=== PATIENT | male | born 1965 | race Two or more races ===

== ENCOUNTER 2023-01-05 11:31 | Outpatient (OUT) | payer BC, SELFPAY ==
--- NOTE | 2022-11-24 15:31 | CA_ITS ---
[facility] Test Date: 2023-01-14 Pat Name: Noé Alberts Department: Room: - Gender: Male Manager Library: : 1965 Requested By: PAUL LOPEZ Order Number: [id number] Reading MD: KEHINDE PARK Interpretive Statements Predominant rhythm is sinus with average rate of 67 bpm Tachycardia - max rate of 167 bpm - 2 episodes of PSVT w/ longest duration of 8 beats - longest episode of 13min 17sec w/ rate of 115-137 bpm Bradycardia - min rate of 41 bpm - longest episode of 35min 9sec w/ rate of 46-53 bpm Ventricular ectopy - none Patient triggered events: 1 - associated with normal sinus rhythm w/o symptoms Impression: Predominant rhythm is sinus with average rate of 67 bpm FAstest rate of 167 bpm and slowest rate of 41 bpm No ventricular ectopy No pauses or blocks Electronically Signed On 01-18-2023 7:23:29 EDT by KEHINDE PARK
== END 2023-01-05 11:32 | disposition home or self-care (01) ==
LOC: CARD 11:31
PROVIDERS: PCP Family Medicine; Visit Provider Family Medicine
DX: R00.1 Bradycardia, unspecified (principal)
CPT/HCPCS: 93246

== ENCOUNTER 2023-05-16 13:17 | Outpatient (OUT) | payer BC, SELFPAY ==
[2023-05-16 13:47] LABS: Basophils Percent Auto 0.6 % (0.2-2.0); Eosinophils Percent Auto 0.4 % (0.9-7.0); Hematocrit 48.1 % (42.0-54.0); Hemoglobin 14.8 g/dL (14.0-18.0); Immature Granulocytes Abs Auto 0.01 10^3/uL (0.00-0.03); Immature Granulocytes Pct Auto 0.2 % (0.0-0.5); Lymphocytes Absolute Auto 1.4 10^3/uL (1.2-3.8); Lymphocytes Percent Auto 26.1 % (20.5-60.0); Mean Corpuscular HGB Conc 30.8 g/dL (29.9-35.2); Mean Corpuscular Hemoglobin 23.8 pg (25.9-34.0); Mean Corpuscular Volume 77.3 fL (80.0-94.0); Mean Platelet Volume 9.6 fL (9.5-13.5); Monocytes Absolute Auto 0.3 10^3/uL (0.3-0.8); Monocytes Percent Auto 5.9 % (1.7-12.0); Neutrophils Absolute Auto 3.6 10^3/uL (1.4-6.5); Neutrophils Percent Auto 66.8 % (43.0-75.0); Platelet Count 197 10^3/uL (150-450); Red Blood Count 6.22 10^6/uL (4.70-6.10); Red Cell Distribution Width 14.6 % (11.0-15.0); White Blood Count 5.4 10^3/uL (4.0-11.0)
[2023-05-16 14:28] LABS: Estimated Average Glucose 114 mg/dL; Glycohemoglobin A1C 5.6 % (4.5-6.2)
[2023-05-16 14:32] LABS: Alanine Aminotransferase 31 U/L (16-63); Albumin Globulin Ratio 0.9; Albumin Level 3.8 g/dL (3.4-5.0); Alkaline Phosphatase 86 U/L (46-116); Anion Gap 9.8; Aspartate Amino Transferase 11 U/L (15-37); BUN Creatinine Ratio 15.2; Bilirubin Total 0.5 mg/dL (0.2-1.0); Calcium 8.8 mg/dL (8.5-10.1); Carbon Dioxide 31.3 mmol/L (21.0-32.0); Chloride 102 mmol/L (98-107); Chol HDL Ratio 4.4; Cholesterol 264 mg/dL (<=200); Estimated GFR (African America >60 (>=60); Estimated GFR (Non-African Ame >60 (>=60); Glucose 105 mg/dL (74-106); HDL Cholesterol 60 mg/dL (40-60); Potassium 4.1 mmol/L (3.5-5.1); Sodium 139 mmol/L (136-145); Thyroid Stimulating Hormone 1.441 uIU/mL (0.358-3.740); Total Protein 7.8 g/dL (6.4-8.2); Triglycerides 89 mg/dL (<=150); VLDL CHOLESTEROL 17.8 mg/dL
== END 2023-05-16 13:18 | disposition home or self-care (01) ==
LOC: LAB 13:18
PROVIDERS: PCP Family Medicine; Visit Provider Family Medicine
DX: E78.00 Pure hypercholesterolemia, unspecified (principal); R73.03 Prediabetes; Z79.899 Other long term (current) drug therapy; R53.83 Other fatigue
CPT/HCPCS: 36415; 80053; 80061; 83036; 84439; 84443; 85025

== ENCOUNTER 2023-12-16 09:34 | Outpatient (OUT) | payer BC, SELFPAY ==
[2023-12-16 10:39] LABS: Basophils Percent Auto 0.6 % (0.2-2.0); Eosinophils Percent Auto 0.6 % (0.9-7.0); Hemoglobin 13.6 g/dL (14.0-18.0); Immature Granulocytes Abs Auto 0.01 10^3/uL (0.00-0.03); Immature Granulocytes Pct Auto 0.2 % (0.0-0.5); Lymphocytes Absolute Auto 1.4 10^3/uL (1.2-3.8); Lymphocytes Percent Auto 27.1 % (20.5-60.0); Mean Corpuscular HGB Conc 30.9 g/dL (29.9-35.2); Mean Corpuscular Hemoglobin 23.6 pg (25.9-34.0); Mean Corpuscular Volume 76.3 fL (80.0-94.0); Mean Platelet Volume 10.5 fL (9.5-13.5); Monocytes Absolute Auto 0.3 10^3/uL (0.3-0.8); Neutrophils Absolute Auto 3.5 10^3/uL (1.4-6.5); Neutrophils Percent Auto 65.5 % (43.0-75.0); Platelet Count 168 10^3/uL (150-450); Red Blood Count 5.77 10^6/uL (4.70-6.10); Red Cell Distribution Width 14.5 % (11.0-15.0); White Blood Count 5.3 10^3/uL (4.0-11.0)
[2023-12-16 11:20] LABS: Estimated Average Glucose 103 mg/dL; Glycohemoglobin A1C 5.2 % (4.5-6.2)
[2023-12-16 11:41] LABS: Prostate Specific Antigen Dx 8.49 ng/mL (<=4.00)
[2023-12-16 11:57] LABS: Alanine Aminotransferase 23 U/L (16-63); Albumin Globulin Ratio 0.9; Albumin Level 3.6 g/dL (3.4-5.0); Alkaline Phosphatase 82 U/L (46-116); Anion Gap 14.5; Aspartate Amino Transferase 11 U/L (15-37); BUN Creatinine Ratio 16.5; Bilirubin Total 0.8 mg/dL (0.2-1.0); Calcium 8.6 mg/dL (8.5-10.1); Carbon Dioxide 24.4 mmol/L (21.0-32.0); Chloride 106 mmol/L (98-107); Chol HDL Ratio 3.3; Cholesterol 173 mg/dL (<=200); Estimated GFR (African America >60 (>=60); Estimated GFR (Non-African Ame >60 (>=60); Free T3 2.58 pg/mL (2.18-3.98); Globulin 3.8 g/dL; Glucose 108 mg/dL (74-106); HDL Cholesterol 53 mg/dL (40-60); LDL Cholesterol Calculated 107.2 mg/dL; Potassium 3.9 mmol/L (3.5-5.1); Sodium 141 mmol/L (136-145); Thyroid Stimulating Hormone 1.464 uIU/mL (0.358-3.740); Total Protein 7.4 g/dL (6.4-8.2); Triglycerides 64 mg/dL (<=150); Uric Acid 3.8 mg/dL (3.5-7.2); VLDL CHOLESTEROL 12.8 mg/dL
[2023-12-17 05:07] LABS: Insulin 11.4 uIU/mL (2.6-24.9)
[2023-12-20 08:10] LABS: PSA, Free 0.37 ng/mL; Prostate Specific Ag 7.5 ng/mL (0.0-4.0)
== END 2023-12-16 09:35 | disposition home or self-care (01) ==
LOC: LAB 09:36
PROVIDERS: PCP Family Medicine; Visit Provider Family Medicine
DX: G30.0 Alzheimer's disease with early onset (principal); J45.909 Unspecified asthma, uncomplicated; R73.03 Prediabetes; R73.09 Other abnormal glucose; Z12.5 Encounter for screening for malignant neoplasm of prostate; R97.20 Elevated prostate specific antigen [PSA]
CPT/HCPCS: 36415; 80053; 80061; 83036; 83525; 84153; 84154; 84436; 84443; 84481; 84550; 85025

== ENCOUNTER 2024-01-05 08:07 | Outpatient (OUT) | payer BC, SELFPAY ==
--- NOTE | 2024-01-05 08:13 | CT_ITS ---
[address] [address] Patient Name: ESTELLA JEFFERY MRN: [id number] date: 1965 Sex: M Assigned Patient Location: CT Current Patient Location: CT Accession/Order Number: [id number] Exam Date: 01/05/2024 09:22 Report Date: 01/05/2024 11:28 At the request of: PAUL LOPEZ Procedure: CT abdomen pelvis w con EXAMINATION: CT abdomen pelvis w con HISTORY: Elevated PSA COMPARISON: CT abdomen pelvis 09/19/2020 TECHNIQUE: Axial, Coronal, and Sagittal images were obtained without and/or with IV contrast as indicated by examination type. Dose reduction techniques were achieved by using automated exposure control and/or adjustment of mA and/or kV according to patient size and/or use of iterative reconstruction technique. FINDINGS: LUNG BASES: No visible pulmonary or pleural disease. LIVER: No enlargement, atrophy, suspicious density, or significant focal lesion. BILIARY: No dilatation or calcification. PANCREAS: No lesion, fluid collection, or abnormal duct dilatation. SPLEEN: No enlargement or focal lesion. ADRENALS: No mass or enlargement. KIDNEYS: No mass, obstruction, or calcification. BOWEL/MESENTERY: Prior sigmoid resection and anastomosis. No visible mass, obstruction, or bowel wall thickening. AORTA/VASCULAR: No aneurysm or dissection. RETROPERITONEUM: No mass or adenopathy. LYMPH NODES: No adenopathy. URINARY BLADDER: No visible focal wall thickening, lesion, or calculus. PELVIC ORGANS: Slight heterogeneous prostate containing several coarse calcifications. No significant enlargement, 4.5 x 3.0 x 3.3 cm. ABDOMINAL WALL: Prior supraumbilical ventral hernia repair with mesh; no current hernia. BONES: Tiny dense calcification within left femoral head and left superior pubic ramus favoring bone islands rather than metastatic disease. OTHER: Negative. CT/CT abdomen pelvis w con IMPRESSION: 1. Slightly heterogeneous prostate without significant enlargement. 2. No convincing metastatic disease. Electronically authenticated by: LUCIE TOWNSEND Date: 01/05/2024 11:28
--- OUTSIDE RECORDS SUMMARY | 2024-01-05 08:14 | XMS_ITS | CCD ---
Author Organization [facility] Care Team Providers Care Manager Cath Lab Name Role Phone NAYA IZAGUIRRE Admitting Unavailable HOY PAUL Primary Care Unavailable CHRISTIANOY PAUL Referring Unavailable ZINA JIASULTANAIN Attending Unavailable NC Procedure Practitioner Unavailab WILLAM WolfIN Surgeon Unavailable CHRISTIANOYKATIAPAUL Primary Care Unavailable SELF, REFERRED Referring Unavailable WILLAM IZAGUIRREIN Attending Unavailable IZAGUIRRE, JIANLIN Admitting Unavailable NC Procedure Practitioner Unavailab ludy IZAGUIRRE, JIASULTANAIN Surgeon Unavailable Unavailable Primary Care Provider UnavailNARCISO Olsen Referring Unavailable Unavailable Primary Care Provider Unavailvirginia LOPEZ ., DR MILLER Attending Unavailable HOY ., DR MILLER Admitting Unavailable HOY ., DR MILLER Primary Care Unavailable HOY ., DR MILLER Consulting Unavailable ZIEBER, DR LUCIE Kramer Consulting Unavailable HOY ., DR MILLER Consulting Unavailable HOY ., DR MILLER Attending Unavailable HOY ., DR MILLER Admitting Unavailable HOY ., DR MILLER Primary Care Unavailable HOY ., DR MILLER Attending Unavailable HOY ., DR MILLER Admitting Unavailable HOY ., DR MILLER Primary Care Unavailable HOY ., DR MILLER Consulting Unavailable MIGUELITO CHICAS Attending Unavailable TEMO, LORRI Referring Unavailable TEMO, LORRI Referring Unavailable TEMO, LORRI Attending Unavailable TEMO, LORRI Attending Unavailable SANDIE WEINSTEIN Referring Unavailable SANDIE WEINSTEIN Attending Unavailable TEMOHOLLY BEASLEYIA Attending Unavailable Unavailable Primary Care Provider UnavailDanni Victoria Attending Unavailable Paul Lopez Referring Unavailable Allergies Allergy Classification Reported Allergen(s) Allergy Type Date of Onset Reaction(s) Facility (1 source) 10007,00 Drug allergy (disorder) 05-09-2009 [facility] Repository Medications Current Medications Medication Drug Class(es) Dates Sig (Normalized) Sig (Original) aspirin 81 mg delayed release oral tablet (20 sources) Platelet Aggregation Inhibitor, Nonsteroidal Anti-inflammatory Drug Start: 11-26-2019 aspirin, enteric coated (ASPIRIN, ENTERIC COATED) 81 mg EC tablet once daily. 0 11/26/2019 Active Comment on above: once daily. CPAP/BIPAP/OTHER (20 sources) Start: 12-02-2022 End: 04-18-2050 CPAP/BIPAP/OTHER Type .CPAPSettings into a note to see current settings/supplies /DME information. 1 Each 0 12/02/2022 04/18/2050 Active Start: 04-30-2022 End: 09-14-2049 CPAP/BIPAP/OTHER Indications : SHELBY (obstructive sleep apnea) Type .CPAPSettings into a note to see current settings/supplies/DME information. 1 Each 0 04/30/2022 09/14/2049 Active Comment on above: Type .CPAPSettings i nto a note to see current settings/supplies/DME information. donepezil hydrochloride 5 mg oral tablet (17 sources) Start: End: take 1 tablet by mouth once daily donepezil (ARICEPT) 5 mg tablet Indications: Alzheimer's disease (HCC) Take 1 tablet by mouth once daily. 90 tablet 0 12/06/2023 Active Comment on above: Take 1 tablet by january th once daily. TAKE 1 TABLET BY JANUARY TH EVERY DAY hydrocortisone 10 mg/ml / neomycin 3.5 mg/ml / polymyxin b 93470 unt/ml otic suspension (3 sources) Aminoglycoside Antibacterial, Polymyxin-class Antibacterial, Corticosteroid Start: End: neomycin-polymyxi n-hydrocortisone (CORTISPORIN) 3.5-10,000-1 mg/mL-unit/mL-% otic suspension Indications: Acute otitis externa of left ear, unspecified type Use 4 Drops in the left ear three times daily for 5 days. 10 mL 0 04/22/2022 04/27/2022 Active Comment on above: Use 4 Drops in the l eft ear three times daily for 5 days. memantine hydrochloride 5 mg oral tablet (12 sources) P-ttbyux-J-aspartate Receptor Antagonist Start: take 1 tablet by mouth twice daily memantine (NAMENDA) 5 mg tablet Indications: Alzheimer's disease (HCC) Take 1 tablet by mouth twice daily. 180 tablet 1 11/18/2022 Active Comment on above: Take 1 tablet by january th twice daily. omeprazole 20 mg delayed release oral capsule (20 sources) Proton Pump Inhibitor omeprazole (PRILOSEC) 20 mg capsule 40 mg once daily. 0 Active Comment on above: 40 mg once daily. oxaprozin 600 mg oral tablet (20 sources) Nonsteroidal Anti-inflammatory Drug Start: oxaprozin (DAYPRO) 600 mg tablet as needed. 0 04/14/2022 Active Comment on above: as needed. simvastatin 20 mg oral tablet (20 sources) HMG-CoA Reductase Inhibitor Start: simvastatin (ZOCOR) 20 mg tablet daily at bedtime. 0 02/25/2022 Active Comment on above: daily at bedtime. Problems Active Problems Problem Classification Problem Date Documented Date Episodic/Chronic Delirium, dementia, and amnestic and other cognitive disorders (3 sources) Alzheimer's disease; Translations: [Alzheimer's disease, unspecified] Chronic Disorders of lipid metabolism (13 sources) Hyperlipidemia; Translations: [Hyperlipidemia, unspecified] 12-02-2022 Chronic Nutritional deficiencies (1 source) Vitamin D deficiency, unspecified; Translations: [VITAMIN D DEFICIENCY UNSPECIFIED] Onset: 01-16-2022 Chronic Osteoarthritis (4 sources) Unspecified osteoarthritis, unspecified site; Translations: [UNSPECIFIED OSTEOARTHRITIS UNS SITE] Onset: 10-21-2022 Chronic Other circulatory disease (1 source) Elevated blood-pressure reading without diagnosis of hypertension; Translations: [Elevated blood-pressure reading, without diagnosis of hypertension] Episodic Other ear and sense organ disorders (20 sources) 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; Translations: [Sensorineural hearing loss, bilateral] Onset: 04-27-2022 04-27-2022 Chronic Other ear and sense organ disorders (2 sources) Impacted cerumen of bilateral ears; Translations: [Impacted cerumen, bilateral] Episodic Other ear and sense organ disorders (1 source) Acute otitis externa of left ear; Translations: [Unspecified acute noninfective otitis externa, left ear] Episodic Other nervous system disorders (2 sources) Other symptoms and signs involving cognitive functions and awareness; Translations: [Other signs and symptoms involving cognition] Onset: 05-07-2022 05-07-2022 Episodic Residual codes; unclassified (1 source) Sleep apnea; Translations: [Sleep apnea, unspecified] Chronic Residual codes; unclassified (1 source) Slow respiration; Translations: [Sleep apnea, unspecified] Chronic Residual codes; unclassified (2 sources) Obstructive sleep apnea syndrome; Translations: [Obstructive sleep apnea (adult) (pediatric)] Chronic Residual codes; unclassified (1 source) Primary central sleep apnea; Translations: [Primary central sleep apnea] Chronic Residual codes; unclassified (1 source) Obstructive sleep apnea (adult) (pediatric); Translations: [Obstructive sleep apnea] Onset: 12-20-2022 Chronic Residual codes; unclassified (3 sources) Amnesia; Translations: [Other amnesia] Episodic Past or Other Problems Problem Classification Problem Date Documented Da te Episodic/Chronic Deficiency and other anemia (1 source) Anemia, unspecified; Translations: [ANEMIA UNSPECIFIED] Onset: 01-16-2022 Episodic Diabetes mellitus without complication (1 source) Other abnormal glucose; Translations: [OTHER ABNORMAL GLUCOSE] Onset: 01-16-2022 Episodic Other ear and sense organ disorders (20 sources) Bilateral tinnitus; Translations: [Tinnitus, bilateral] Onset: 04-27-2022 04-27-2022 Episodic Residual codes; unclassified (5 sources) Other amnesia; Translations: [OTHER AMNESIA] Onset: 01-21-2022 Episodic Results Test Name Value Interpretation Reference Range [facility] eularinku Marjorie 03-07-2023 [facility] Telephone ([facility]) NOÉ JEFFERY ([id number]) 1965 M Date Time Provider Department 03/07/23 CHASIDY STOVALL [facility] During your visit today, we recorded the following information about you: Chasidy Stovall, Research Coordinator 03/07/2023 1:44 PM Signed A voicemail was left about participation in [facility] research study. Chasidy Stovall, Research Coordinator 03/14/2023 1:46 PM Addendum Another voicemail was left in regards to potential participation. Allergies As of Date: 03/07/2023 (No Known Allergies) Date Reviewed: 10/12/2022 Reviewed by: Miguelito Chicas APRN.FIRE MANAGEMENT SPECIALIST - Fully Assessed Reason for Visit: Research [293] Cmt: [facility] (IRB [id number]) Primary Visit Diagnosis:Research study patient [Z00.6] Prescriptions as of 03/14/2023 - donepezil (ARICEPT) 5 mg tablet TAKE 1 TABLET BY MOUTH EVERY DAY - CPAP/BIPAP/OTHER Type .CPAPSettings into a note to see current settings/supplies/DM E information. - memantine (NAMENDA) 5 mg tablet Take 1 tablet by mouth twice daily. - CPAP/BIPAP/OTHER Type .CPAPSettings into a note to see current settings/supplies/DM E information. - aspirin, enteric coated (ASPIRIN, ENTERIC COATED) 81 mg EC tablet once daily. - omeprazole (PRILOSEC) 20 mg capsule 40 mg once daily. - oxaprozin (DAYPRO) 600 mg tablet as needed. - simvastatin (ZOCOR) 20 mg tablet daily at bedtime. Problem List As Of Date 03/07/2023 Noted Resolved Bilateral high frequency sensorineural hearing *04/27/2022 Tinnitus, bilateral [H93.13] 04/27/2022 HLD (hyperlipidemia) [E78.5] Encounter Status:Closed by CHASIDY STOVALL on 03/07/23 [facility] 02-08-2023 [facility] Telephone ([facility]) NOÉ JEFFERY ([id number]) 1965 M Date Time Provider Department 02/08/23 CHASIDY STOVALL [facility] During your visit today, we recorded the following information about you: Chasidy Stovall, Research Coordinator 02/08/2023 1:26 PM Signed A call was made to of patient to talk about interest in participating in [facility]. expressed interest in participating. The [facility] consent document was sent through email. A call will be made in a week to discuss enrollment. Allergies As of Date: 02/08/2023 (No Known Allergies) Date Reviewed: 10/12/2022 Reviewed by: Miguelito Chicas APRN.FIRE MANAGEMENT SPECIALIST - Fully Assessed Reason for Visit: Research [293] Cmt: [facility] (IRB [id number]) Interest Primary Visit Diagnosis:Research study patient [Z00.6] Prescriptions as of 02/08/2023 - donepezil (ARICEPT) 5 mg tablet TAKE 1 TABLET BY MOUTH EVERY DAY - CPAP/BIPAP/OTHER Type .CPAPSettings into a note to see current settings/supplies/DM E information. - memantine (NAMENDA) 5 mg tablet Take 1 tablet by mouth twice daily. - CPAP/BIPAP/OTHER Type .CPAPSettings into a note to see current settings/supplies/DM E information. - aspirin, enteric coated (ASPIRIN, ENTERIC COATED) 81 mg EC tablet once daily. - omeprazole (PRILOSEC) 20 mg capsule 40 mg once daily. - oxaprozin (DAYPRO) 600 mg tablet as needed. - simvastatin (ZOCOR) 20 mg tablet daily at bedtime. Problem List As Of Date 02/08/2023 Noted Resolved Bilateral high frequency sensorineural hearing *04/27/2022 Tinnitus, bilateral [H93.13] 04/27/2022 HLD (hyperlipidemia) [E78.5] Encounter Status:Closed by CHASIDY STOVALL on 02/08/23 [facility] 02-04-2023 [facility] Telephone ([facility]) NOÉ JEFFERY ([id number]) 1965 M Date Time Provider Department 02/04/23 CORINNASANDIE During your visit today, we recorded the following information about you: Domingo Fried 02/04/2023 8:38 AM Signed Allergies As of Date: 02/04/2023 (No Known Allergies) Date Reviewed: 10/12/2022 Reviewed by: Miguelito Chicas APRN.FIRE MANAGEMENT SPECIALIST - Fully Assessed Reason for Visit: PAP Therapy Follow Up [1285] Cmt: 12/18/22 - 01/16/23 LAST FOUND DL FROM DME Prescriptions as of 02/04/2023 - donepezil (ARICEPT) 5 mg tablet TAKE 1 TABLET BY MOUTH EVERY DAY - CPAP/BIPAP/OTHER Type .CPAPSettings into a note to see current settings/supplies/DM E information. - memantine (NAMENDA) 5 mg tablet Take 1 tablet by mouth twice daily. - CPAP/BIPAP/OTHER Type .CPAPSettings into a note to see current settings/supplies/DM E information. - aspirin, enteric coated (ASPIRIN, ENTERIC COATED) 81 mg EC tablet once daily. - omeprazole (PRILOSEC) 20 mg capsule 40 mg once daily. - oxaprozin (DAYPRO) 600 mg tablet as needed. - simvastatin (ZOCOR) 20 mg tablet daily at bedtime. Problem List As Of Date 02/04/2023 Noted Resolved Bilateral high frequency sensorineural hearing *04/27/2022 Tinnitus, bilateral [H93.13] 04/27/2022 HLD (hyperlipidemia) [E78.5] Encounter Status:Closed by DOMINGO FRIED on 02/04/23 [facility] 01-13-2023 [facility] Telephone ([facility]) NOÉ JEFFERY ([id number]) 1965 M Date Time Provider Department 01/13/23 MIQUEL DIAMOND During your visit today, we recorded the following information about you: Sandie Weinstein APRN.EFRAIN 01/13/2023 12:00 PM Signed I left a message explaining the 4% requirement from Medicare, and advised to contact Medicare if they have insurance questions. Advised to call me back if they had other concerns or questions. Sandie Weinstein APRN.EFRAIN Marcelo Gonzalesian 01/13/2023 1:14 PM Signed Patient returned call, requested a call back. Miquel Diamond RN 01/14/2023 9:15 AM Signed Called and left VM. Call back info provided and call back requested. Allergies As of Date: 01/13/2023 (No Known Allergies) Date Reviewed: 10/12/2022 Reviewed by: Miguelito Chicas APRN.EFRAIN - Fully Assessed Reason for Visit: Returning Patient's Call [408] Prescriptions as of 01/14/2023 - CPAP/BIPAP/OTHER Type .CPAPSettings into a note to see current settings/supplies/DM E information. - memantine (NAMENDA) 5 mg tablet Take 1 tablet by mouth twice daily. - donepezil (ARICEPT) 5 mg tablet Take 1 tablet by mouth once daily. - CPAP/BIPAP/OTHER Type .CPAPSettings into a note to see current settings/supplies/DM E information. - aspirin, enteric coated (ASPIRIN, ENTERIC COATED) 81 mg EC tablet once daily. - omeprazole (PRILOSEC) 20 mg capsule 40 mg once daily. - oxaprozin (DAYPRO) 600 mg tablet as needed. - simvastatin (ZOCOR) 20 mg tablet daily at bedtime. Problem List As Of Date 01/13/2023 Noted Resolved Bilateral high frequency sensorineural hearing *04/27/2022 Tinnitus, bilateral [H93.13] 04/27/2022 HLD (hyperlipidemia) [E78.5] Encounter Status:Closed by MIQUEL DIAMOND on 01/13/23 [facility] Marjorie 12-03-2022 [facility] Telephone ([facility]) NOÉ JEFFERY ([id number]) 1965 M Date Time Provider Department 12/03/22 SANDIE WEINSTEIN During your visit today, we recorded the following information about you: Domingo Fried 12/03/2022 11:39 AM Signed Faxed order, office notes, demographics, and sleep study to: DME name: [facility] DME fax: [phone] DME ph: Allergies As of Date: 12/03/2022 (No Known Allergies) Date Reviewed: 10/12/2022 Reviewed by: Miguelito Chicas APRN.FIRE MANAGEMENT SPECIALIST - Fully Assessed Reason for Visit: PAP Rx Faxed [[id number]] Cmt: DME: [facility] Prescriptions as of 12/03/2022 - CPAP/BIPAP/OTHER Type .CPAPSettings into a note to see current settings/supplies/DM E information. - memantine (NAMENDA) 5 mg tablet Take 1 tablet by mouth twice daily. - donepezil (ARICEPT) 5 mg tablet Take 1 tablet by mouth once daily. - CPAP/BIPAP/OTHER Type .CPAPSettings into a note to see current settings/supplies/DM E information. - aspirin, enteric coated (ASPIRIN, ENTERIC COATED) 81 mg EC tablet once daily. - omeprazole (PRILOSEC) 20 mg capsule 40 mg once daily. - oxaprozin (DAYPRO) 600 mg tablet as needed. - simvastatin (ZOCOR) 20 mg tablet daily at bedtime. Problem List As Of Date 12/03/2022 Noted Resolved Bilateral high frequency sensorineural hearing *04/27/2022 Tinnitus, bilateral [H93.13] 04/27/2022 HLD (hyperlipidemia) [E78.5] Encounter Status:Closed by DOMINGO FRIED on 12/03/22 [facility] Marjorie 11-08-2022 [facility] Telephone [facility] NOÉ JEFFERY ([id number]) 1965 M Date Time Provider Department 11/08/22 SANDIE WEINSTEIN During your visit today, we recorded the following information about you: Petrona Guzman LPN 11/08/2022 11:52 AM Signed Message was sent to [facility] requesting a 30 day compliance rpt to be sent to our [place] office for Pt's upcoming appt. Will await for rpts to be sent. Petrona Guzman LPN 11/09/2022 8:40 AM Signed Rpt was received and was scanned in Pts chart. Allergies As of Date: 11/08/2022 (No Known Allergies) Date Reviewed: 10/12/2022 Reviewed by: Miguelito Chicas APRN.FIRE MANAGEMENT SPECIALIST - Fully Assessed Reason for Visit: Download Request [Other] Prescriptions as of 11/09/2022 - donepezil (ARICEPT) 5 mg tablet Take 1 tablet by mouth once daily. - CPAP/BIPAP/OTHER Type .CPAPSettings into a note to see current settings/supplies/DM E information. - aspirin, enteric coated (ASPIRIN, ENTERIC COATED) 81 mg EC tablet once daily. - omeprazole (PRILOSEC) 20 mg capsule 40 mg once daily. - oxaprozin (DAYPRO) 600 mg tablet as needed. - simvastatin (ZOCOR) 20 mg tablet daily at bedtime. Problem List As Of Date 11/08/2022 Noted Resolved Bilateral high frequency sensorineural hearing *04/27/2022 Tinnitus, bilateral [H93.13] 04/27/2022 Encounter Status:Closed by PETRONA GUZMAN on 11/08/22 [facility] R[facility]O by IFAon 10-25-2022 Antinuclear Antibodies, IFA Negative Normal [facility] Comment on above: Result Comment: Nega tive <1:80 Borderline 1:80 Positive >1:80 ICAP nomenclature: AC-0 For more information about Hep-2 cell patterns use ANApatterns.org, the official website for the International Consensus on Antinuclear Antibody (RITO) Patterns (ICAP). Performed By: #### T 7, TSH, CMP, AKSHAT, LIPA, LIPID #### [facility] [address] [place] [address] Dr. Janell Marquez ANTISTREPTOLYSIN O AB (ASO)o n 10-22-2022 Antistreptolysin O Ab 45.9 IU/mL Normal 0.0-200.0 [facility] Comment on above: Performed By: #### A SOAB #### [facility] [address] [place] [address] Dr. Janell Marquez RHEUMATOID FACTORon 10-23-19 RA Latex Turbid. <10.0 Normal <14.0 [facility] Comment on above: Performed By: #### R F #### [facility] [address] [place] [address] Dr. Janell Marquez CBC AUTO DIFFon 10-21-2022 BASO # 0.0 103/ul Normal 0.0-0.1 [facility] Comment on above: Performed By: #### T 7, TSH, CMP, AKSHAT, LIPA, LIPID #### [facility] [address] [place] [address] Dr. Janell Marquez Basophils/100 WBC (Bld) 0.4 % Normal 0.2-2.0 [facility] Comment on above: Performed By: #### T 7, TSH, CMP, AKSHAT, LIPA, LIPID #### [facility] [address] [place] [address] Dr. Janell Marquez EO # 0.0 103/ul Normal 0.0-0.7 [facility] Comment on above: Performed By: #### T 7, TSH, CMP, AKSHAT, LIPA, LIPID #### [facility] [address] [place] [address] Dr. Janell Marquez Eosinophils/100 WBC (Bld) 0.7 % Critically low 0.9-7.0 [facility] Comment on above: Performed By: #### T 7, TSH, CMP, AKSHAT, LIPA, LIPID #### [facility] [address] [place] [address] Dr. Janell Marquez Erythrocyte distribution width (RBC) [Ratio] 16.1 % Critically high 11.0-15.0 [facility] Comment on above: Performed By: #### T 7, TSH, CMP, AKSHAT, LIPA, LIPID #### [facility] [address] [place] [address] Dr. Janell Marquez Hematocrit (Bld) [Volume fraction] 48.8 % Normal 42.0-54.0 [facility] Comment on above: Performed By: #### T 7, TSH, CMP, AKSHAT, LIPA, LIPID #### [facility] [address] [place] [address] Dr. Janell Marquez Hemoglobin (Bld) [Mass/Vol] 15.3 g/dL Normal 14.0-18.0 [facility] Comment on above: Performed By: #### T 7, TSH, CMP, AKSHAT, LIPA, LIPID #### [facility] [address] [place] [address] Dr. Janell Marquez IG # 0.02 10e3/ul Normal 0.00-0.03 [facility] Comment on above: Performed By: #### T 7, TSH, CMP, AKSHAT, LIPA, LIPID #### [facility] [address] [place] [address] Dr. Janell Marquez IG % 0.4 % Normal 0.0-0.5 [facility] Comment on above: Performed By: #### T 7, TSH, CMP, AKSHAT, LIPA, LIPID #### [facility] [address] [place] [address] Dr. Janell Marquez LYMPH # 1.3 103/ul Normal 1.2-3.8 [facility] Comment on above: Performed By: #### T 7, TSH, CMP, AKSHAT, LIPA, LIPID #### [facility] [address] [place] [address] Dr. Janell Marquez Lymphocytes/100 WBC (Bld) 29.0 % Normal 20.5-60.0 [facility] Comment on above: Performed By: #### T 7, TSH, CMP, AKSHAT, LIPA, LIPID #### [facility] [address] [place] [address] Dr. Janell Marquez MANUAL DIFF REQ NO Normal [facility] Comment on above: Performed By: #### T 7, TSH, CMP, AKSHAT, LIPA, LIPID #### [facility] [address] [place] [address] Dr. Janell Marquez MCH (RBC) [Entitic mass] 23.5 pg Critically low 25.9-34.0 [facility] Comment on above: Performed By: #### T 7, TSH, CMP, AKSHAT, LIPA, LIPID #### [facility] [address] [place] [address] Dr. Janell Marquez MCHC (RBC) [Mass/Vol] 31.4 g/dL Normal 29.9-35.2 [facility] Comment on above: Performed By: #### T 7, TSH, CMP, AKSHAT, LIPA, LIPID #### [facility] [address] [place] [address] Dr. Janell Marquez MCV (RBC) [Entitic vol] 74.8 fL Critically low 80.0-94.0 [facility] Comment on above: Performed By: #### T 7, TSH, CMP, AKSHAT, LIPA, LIPID #### [facility] [address] [place] [address] Dr. Janell Marquez MONO # 0.3 103/ul Normal 0.3-0.8 [facility] Comment on above: Performed By: #### T 7, TSH, CMP, AKSHAT, LIPA, LIPID #### [facility] [address] [place] [address] Dr. Janell Marquez Monocytes/100 WBC (Bld) 7.4 % Normal 1.7-12.0 [facility] Comment on above: Performed By: #### T 7, TSH, CMP, AKSHAT, LIPA, LIPID #### [facility] [address] [place] [address] Dr. Janell Marquez NEUT # 2.9 103/ul Normal 1.4-6.5 [facility] Comment on above: Performed By: #### T 7, TSH, CMP, AKSHAT, LIPA, LIPID #### [facility] [address] [place] [address] Dr. Janell Marquez Neutrophils/100 WBC (Bld) 62.1 % Normal 43.0-75.0 [facility] Comment on above: Performed By: #### T 7, TSH, CMP, AKSHAT, LIPA, LIPID #### [facility] [address] [place] [address] Dr. Janell Marquez Platelet mean volume (Bld) [Entitic vol] 9.3 fL Critically low 9.5-13.5 [facility] Comment on above: Performed By: #### T 7, TSH, CMP, AKSHAT, LIPA, LIPID #### [facility] [address] [place] [address] Dr. Janell Marquez PLT 203 103/ul Normal 150-450 [facility] Comment on above: Performed By: #### T 7, TSH, CMP, AKSHAT, LIPA, LIPID #### [facility] [address] [place] [address] Dr. Janell Marquez RBC 6.52 106/ul Critically high 4.70-6.10 [facility] Comment on above: Performed By: #### T 7, TSH, CMP, AKSHAT, LIPA, LIPID #### [facility] [address] [place] [address] Dr. Janell Marquez WBC 4.6 103/ul Normal 4.0-11.0 [facility] Comment on above: Performed By: #### T 7, TSH, CMP, AKSHAT, LIPA, LIPID #### [facility] [address] [place] [address] Dr. Janell Marquez CRPon 10-21-2022 CRP [Mass/Vol] mg/L Normal <=1.0 [facility] Comment on above: Performed By: #### T 7, TSH, CMP, AKSHAT, LIPA, LIPID #### [facility] [address] [place] [address] Dr. Janell Marquez SED RATE SOUTH KENTERGREN 2022 SED RATE 30 mm/hr Critically high <=20 [facility] Comment on above: Performed By: #### T 7, TSH, CMP, AKSHAT, LIPA, LIPID #### [facility] [address] [address] [address] Janell Marquez URIC ACID SERUMon 10-21-2022 Urate [Mass/Vol] 4.3 mg/dL Normal 3.5-7.2 [facility] Comment on above: Performed By: #### T 7, TSH, CMP, AKSHAT, LIPA, LIPID #### [facility] [address] [address] [address] Janell Marquez ADMARK PHOSPHO-TAU TOTAL-TAU /AB42 CSFon 10-12-2022 COMMENT SEE NOTE Normal [facility] Comment on above: Order Comment: Speci men Type: CEREBROSPINAL FLUIDOrdering Facility: [facility] Address: [address] [place] [id number] Result Comment: Comm ents: This analysis detected levels of CSF A-beta 42 peptide (A-beta 42) and total tau (T-tau) proteins, reflected in a reduced A-beta 42 to T-tau Index (ATI). The level of phospho-tau (P-tau) was also elevated. These results are consistent with a diagnosis of Alzheimer's disease (AD). Recommendations: Health care providers, please contact the [facility] Department at if you wish to speak with a clinical otm consultant regarding this test result. Background information: Alzheimers disease (AD) is the most common form of dementia, accounting for 60-70% of cases (1). AD manifests initially with subtle progressive memory loss that eventually becomes severe and incapacitating. Behavioral deficits, including social withdrawal, aggression, depression and hallucinations, are also present (3). Pathologically, AD is characterized by the formation of beta-amyloid plaques and neurofibrillary tangles within the brain, and cerebral cortical atrophy (4). The CSF based biomarkers A-beta 42 peptide (A-beta 42), phospho-tau (P-tau) and total tau (T-tau) can aid in the diagnosis of AD. The combination of A-beta 42 and T-tau results are express as the A-beta 42 to T-tau Index (ATI). ATI is calculated as A-beta 42/(240 + 1.18 x T- tau) and represents a ratio normalized by the discrimination line A-beta 42 = 240 + 1.18 x T-tau (4, 5). Studies performed with over 70 participants, showed that the cutoff value of ATI = 1, yields a sensitivity of 85-94% and specificity of 54-95% in distinguishing AD from non-AD populations (4, 5). An ATI of <1.0 is typical of AD, while a value >1.0 is typical of control populations. Additionally, the CSF levels of P-tau have been found to discriminate AD from other dementias with sensitivities of 72-88% and specificities of 78-83% (1). Crosby considers ATI values of 0.8 to 1.2 and P-tau levels of 54-68 pg/ml as borderline results. The combination of all three biomarkers has been reported to have an average sensitivity and specificity of 85% and 90%, respectively (6). Performed By: #### P HOTAU ####MARCIAL [id number] [place] [address] INTERPRETATION SEE NOTE Normal [facility] Comment on above: Order Comment: Speci men Type: CEREBROSPINAL FLUIDOrdering Facility: [facility] Address: [address] [place] [address] Result Comment: This test detected a reduced A-beta 42 to T-tau Index (ATI) and elevated levels of P-tau protein in the cerebrospinal fluid (CSF). Performed By: #### P HOTAU ####ATHJOHN [id number] [address] [address] METHOD SEE NOTE Normal [facility] Comment on above: Order Comment: Speci men Type: CEREBROSPINAL FLUIDOrdering Facility: [facility] Address: [address] [place] [address] Result Comment: Dete ction of proteins was performed by Enzyme Linked Immunosorbent Assay (CARLITO) methodology. Limitations of analysis: Although rare, false positive or false negative results may occur. All results should be interpreted in the context of clinical findings, relevant history, and other laboratory data. Performed By: #### P HOTAU ####ATHENAKATIEIA [id number] [place] [address] REFERENCES SEE NOTE Normal [facility] Comment on above: Order Comment: Speci men Type: CEREBROSPINAL FLUIDOrdering Facility: [facility] Address: [address] [place], [place] [address] [place] [address] Result Comment: 1. F Hemanth baires et al. (2014) Front Aging Neurosci 6: 47. (PMID: 25243030) 2. Salma Modi. (2008) Maria R Med 10:231-9 (PMID:98481666) 3. Braak, H, et al. (1991) Acta Neuropathol 82: 239-59. (PMID: 9167140) 4. Ousmane Pedraza et al. (1999) Neurology 52: 1555-62. (PMID: 21813895) 5. Bill Long. (2004) NeuroRx 1: 213-25. (PMID: 14990736) 6. Bill Long et al. (2015) Alzheimers Binh 11: 58-69. (PMID: 73212000) This test was developed and its analytical performance characteristics have been determined by [facility]. It has not been cleared or approved by the U.S. Food and Drug Administration. This assay has been validated pursuant to the CLIA regulations and is used for clinical purposes. Laboratory oversight provided by Delvin Figueredo M.D., Ph.D., CLIA license valdivia, [facility] (CLIA# [id number]) Testing performed at: [facility] [address] [place] [address] Performed By: #### P ANALISA ####ATHENACLIA [id number] [place] [address] TECHNICAL RESULTS SEE NOTE Normal [facility] Comment on above: Order Comment: Speci men Type: CEREBROSPINAL FLUIDOrdering Facility: [facility] Address: [address] [place] [address] Result Comment: Interpretive Result Table INTERPRETATION: Alzheimer Disease TEST: A-beta 42 TECHNICAL RESULT: 405.2 pg/mL REFERENCE RANGE: Not consistent with AD: P-Tau <54 pg/mL and ATI >1.2, Borderline: P-Tau 54-68 pg/mL and/or ATI 0.8-1.2, AD: P-Tau >68 pg/mL and ATI <0.8 INTERPRETATION: TEST: T-Tau TECHNICAL RESULT: 1089.85 pg/mL REFERENCE RANGE: INTERPRETATION: TEST: P-Tau TECHNICAL RESULT: 121.45 pg/mL REFERENCE RANGE: INTERPRETATION: TEST: ATI TECHNICAL RESULT: 0.27 REFERENCE RANGE: Performed By: ###Lynda HAUSER ####MARCIAL [id number] [place] [address] Jaime 10-12-2022 CNOV Office Visit (NEBT) NOÉ JEFFERY ([id number]) 1965 M Date Time Provider Department 10/12/22 10:30 AM MIGUELITO CHICAS During your visit today, we recorded the following information about you: Pulse Blood pressure 58/minute 117/74 Miguelito Chicas APRN.CNP 10/12/2022 2:33 PM Signed [facility]STIC TESTING Noé Jeffery, [id number] October 12, 2022, 8:57 AM INFORMED CONSENT The risks, benefits and anticipated outcomes of the procedure, the risks and benefits of the alternatives to the procedure and the roles and tasks of the personnel to be involved were discussed with the patient, who consents to the procedure and agrees to proceed. I verify that I personally obtained Noé Jeffery's consent, Miguelito Chicas APRN.EFRAIN UNIVERSAL PROTOCOL / SAFETY CHECKLIST Procedure to be Performed: Lumbar Puncture Sign In: A Moment of CARE was completed. Personnel directly involved with the procedure wore the appropriate PPE (Personal Protective Equipment). No special equipment needed. Patient/Surrogate Stated/Verified: PATIENT VERIFIED(optional for EMERGENT procedures): Patient name, Date of , Relevant allergies, and The intended procedure Time Out Communication: Intended patient and procedure match the source documents. Consent documented and matches the intended procedure. Relevant labs, photos, and/or imaging studies have been reviewed. Correct side/site marked and visible. No medications required for procedure. No fire risk assessment and interventions applicable. No implant(s) inserted. Sign Out: SIGN OUT (optional for EMERGENT procedures): All specimen containers correctly labeled. All instruments, equipment, possible retained foreign bodies accounted for. Post-procedure follow-up management communicated and Plan of Care Visit completed when applicable. Miguelito Chicas APRN.CNP Pre-Procedure Labs: Component Latest Ref Rng AND Units 04/22/2022 Platelet Count 150 - 400 k/uL 223 Pertinent History: Prior LP or Epidural: NO Allergy to lidocaine: NO Allergy to betadine: NO Taking anticoagulants: NO Back problems or trauma: NO Sign in Communication: Completed Pre-LP vitals: 1039 122/86 HR 56 Procedure: Performed by: Miguelito Chicas APRN.FIRE MANAGEMENT SPECIALIST Asst: Tanisha jeffers RN / Ana Jaffe RN Relevant documentation, images, implants or special equipment present: N/A Patient positioned: left lateral decubitus Prepped and draped under aseptic conditions. Procedural site marked, verified by: Miguelito Chicas APRN.CNP Site: L4-5 AUDIBLE TIME OUT: 1045 EST, Patient verified by name and . Procedure verified. Local administration of 1% lidocaine 5cc. Interspace entered with Sprotte 22 gauge 9cm spinal needle Opening pressure: not obtained CSF obtained: 8cc for patient testing. Appearance: clear and colorless Spinal needle removed, area cleansed and bandage applied. Patient placed supine. Sign Out Discussion Post-LP instructions given: YES Verbal and written Pt. tolerated procedure well: YES Pt. remained supine for 30 min. Post-LP vitals: 1201 BP 117/74 Pulse (!) 58 Miguelito Chicas APRN.CNP October 12, 2022 Miguelito Chicas APRN.CNP 10/12/2022 10:31 AM Signed [facility] GOING HOME INSTRUCTIONS POST LP HEADACHE Prevention Drink plenty of fluids - Water is best. Also include (in addition to water) caffeinated drinks such as coffee or tea. Take it easy- NO heavy lifting or strenuous exercise for the next 48 hours What to do if you develop a Headache: A spinal headache is usually worse in the sitting or standing position and feels better when laying down. This headache, which can be severe, would typically start in the first 24 to 48 hours after the LP and last anywhere from several hours to 7-10 days. It responds best to complete bedrest. Continue to drinking plenty of fluids including water and caffeinated drinks such as coffee or tea You can take chno-lso-ugsmaeu Tylenol and/or Ibuprofen as directed INFECTION PREVENTION The procedure was done under sterile field which helps to prevent infection. Do not sit in any water for the next 48 hours. No swimming, hot tubs or bath. You may shower tomorrow. When should I call my provider? You can always call us if you have a question. -If during regular office hours: Tuesday thru Tuesday from 8-5pm, please contact our office line [phone] and then hit 0 , please ask our administrative office clerk to page the provider who performed the spinal tap. -For nights or weekends, call or toll free and ask the fulling mill operator the page the Neurology resident on-call. 2. If your headache is unusually severe regardless of bedrest or lasts more than two days 3. If you develop a fever 4 (more content not included)... Normal [facility] CSF MANUAL DIFFon 10-12-2022 Diff Total, CSF 57 cells counted [facility] Lymph%, CSF 91 % High 50 - 90 % [facility] [place]%, CSF 9 % Low 10 - 50 % [facility] DIF TTL, CSF 57 cells counted Normal [facility] Comment on above: Order Comment: Speci men Type: CEREBROSPINAL FLUIDOrdering Facility: [facility] Address: [address] [place] [address] Result Comment: Less than 100 cells were counted due to low cellularity of the specimen; therefore, the total differential percentage may be subject to rounding error. Performed By: #### L [id number], 00974-6 ####[facility] [id number] [place] [address] [place] LYMPH%, CSF 91 % High 50-[address] [facility] Comment on above: Order Comment: Speci men Type: CEREBROSPINAL FLUIDOrdering Facility: [facility] Address: [address] [address] Performed By: #### L [id number], 90812-6 ####[facility] [id number] [place] [address] [place] MONO%, CSF 9 % Low 10-[address] [facility] Comment on above: Order Comment: Speci men Type: CEREBROSPINAL FLUIDOrdering Facility: [facility] Address: [address] [place], [place] [address] Performed By: #### L [id number], 56050-8 ####[facility] [id number] [place] [address] [place] Cell count panel (CSF)on Clarity (CSF) Clear Clear [facility] Clarity (Unsp spec) Not Indicated Clear Cl [facility] Color (CSF) Colorless Colorless [facility] Color (Spun CSF) Not Indicated Colorless [facility] CSF Tube Number Tube 1 [facility] RBC Manual cnt (CSF) [#/Vol] 3 cells/uL 0 - 5 cells/uL [facility] WBC Manual cnt (CSF) [#/Vol] 1 cells/uL 0 - 5 cells/uL [facility] Clarity (CSF) Clear Normal Clear [facility] Comment on above: Order Comment: Speci men Type: CEREBROSPINAL FLUIDOrdering Facility: [facility] Address: [address] [place], [place] [address] Performed By: #### L [id number], 80710-8 ####[facility] [id number] [address] [place] Clarity (Unsp spec) Not Indicated Normal Clear Cl [facility] Comment on above: Order Comment: Speci men Type: CEREBROSPINAL FLUIDOrdering Facility: [facility] Address: [address] [place], [place] [address] Performed By: #### L [id number], 54894-2 ####[facility] [id number] [place] [address] [place] Color (CSF) Colorless Normal Colorless [facility] Comment on above: Order Comment: Speci men Type: CEREBROSPINAL FLUIDOrdering Facility: [facility] Address: [address] Performed By: #### L [id number], 28340-6 ####[facility] [id number] [place] [address] [place] Color (Spun CSF) Not Indicated Normal Colorless [facility] Comment on above: Order Comment: Speci men Type: CEREBROSPINAL FLUIDOrdering Facility: [facility] Address: [address] [place] [address] Performed By: #### L ZS6921, 26771-3 ####[facility] [id number] [address] [place] CSF TUBE NUMBER Tube [address] [facility] Comment on above: Order Comment: Speci men Type: CEREBROSPINAL FLUIDOrdering Facility: [facility] Address: [address] [place] [address] Performed By: #### L YH0750, 22672-4 ####[facility] [id number] [address] [place] RBC Manual cnt (CSF) [#/Vol] 3 cells/uL Normal 0-[address] [facility] Comment on above: Order Comment: Speci men Type: CEREBROSPINAL FLUIDOrdering Facility: [facility] Address: [address] [place], [place] [address] Performed By: #### L AT5433, 07327-5 ####[facility] [id number] [address] WBC Manual cnt (CSF) [#/Vol] 1 cells/uL Normal 0-[address] [facility] Comment on above: Order Comment: Speci men Type: CEREBROSPINAL FLUIDOrdering Facility: [facility] Address: [address] [place], [place] [address] Performed By: #### L QQ2200, 13048-7 ####[facility] [id number] [place] [address] [place] GLUCOSE CSFon 10-12-2022 Glucose (CSF) [Mass/Vol] 57 mg/dL 40 - 70 mg/dL [facility] Glucose CSF-mCncon Glucose (CSF) [Mass/Vol] 57 mg/dL Normal 40-[address] [facility] Comment on above: Order Comment: Speci men Type: CEREBROSPINAL FLUIDOrdering Facility: [facility] Address: [address] [place] [address] Result Comment: Lumb ar CSF glucose values of healthy patients are approximately 60% of the plasma values and must always be compared with a concurrently measured plasma value for adequate clinical interpretation. References: 1. Glucose HK (GLUC3) [package insert V 12.0 Slovak]. [employer], [place], [place]. October 2015. 2. Cali Alvarez, Cali Chen (2015). Chapter 7: Glucose and Lactate. F. Eric edwards al.(eds.), Cerebrospinal Fluid in Clinical Neurology. Jack: [employer]. Performed By: #### 2 342-4, 0140-3 ####[facility] [id number] [place] [address] [place] PROTEIN CSFon 10-12-2022 Protein (CSF) [Mass/Vol] 32 mg/dL 15 - 45 mg/dL [facility] Prot CSF-mCncon 10-12-2022 Protein (CSF) [Mass/Vol] 32 mg/dL Normal 15-[address] [facility] Comment on above: Order Comment: Speci men Type: CEREBROSPINAL FLUIDOrdering Facility: [facility] Address: [address] [place] [address] Performed By: #### 2 342-4, 2880-3 ####[facility] [id number] [place] [address] [place] TOURTELLOTTE BLOODon 10-12-2 023 [facility] TOURTELLOTTE CSFon 3 Albumin (CSF) [Mass/Vol] 18.8 mg/dL Normal 10.0-30.[address] [facility] Comment on above: Order Comment: Speci men Type: CEREBROSPINAL FLUIDOrdering Facility: [facility] Address: [address] [place] [address] Performed By: #### T OURTCS ####[facility] [id number] [place] [address] [place] Albumin [Mass/Vol] 4200 mg/dL Normal 2830-2048 [facility] Comment on above: Order Comment: Speci men Type: CEREBROSPINAL FLUIDOrdering Facility: [facility] Address: [address] [place] [address] Performed By: #### T OURTCSF ####[facility] [id number] [address] [place] IgG (CSF) [Mass/Vol] 3.0 mg/dL Normal 1.0-3.0 [facility] Comment on above: Order Comment: Speci men Type: CEREBROSPINAL FLUIDOrdering Facility: [facility] Address: [address] [place] [address] Performed By: #### T OURTCSF ####[facility] [id number] [address] [place] IgG [Mass/Vol] 1435 mg/dL Normal 700-[address] [facility] Comment on above: Order Comment: Speci men Type: CEREBROSPINAL FLUIDOrdering Facility: [facility] Address: [address] [place] [address] Performed By: #### T OURTCSF ####[facility] [id number] [place] [address] [place] IgG clearance/Albumin clearance (S+CSF) [Ratio] 0.47 Normal 0.00-0.[address] [facility] Comment on above: Order Comment: Speci men Type: CEREBROSPINAL FLUIDOrdering Facility: [facility] Address: [address] [place] [address] Performed By: #### T OURTCSF ####[facility] [id number] [place] [address] [place] IgG synthesis rate Calc (S+CSF) [Mass/Time] 0.0 mg/day Normal 0.0-3.[address] [facility] Comment on above: Order Comment: Speci men Type: CEREBROSPINAL FLUIDOrdering Facility: [facility] Address: [address] [address] Performed By: #### T OURTCSF ####[facility] [id number] [address] IgG/Albumin (CSF) [Mass ratio] 0.16 Normal 0.06-0.[address] [facility] Comment on above: Order Comment: Speci men Type: CEREBROSPINAL FLUIDOrdering Facility: [facility] Address: [address] [place] [address] Performed By: #### T OURTCSF ####[facility] [id number] [address] [place] VDRL CSF-Titron 10-12-2022 Reagin Ab VDRL (CSF) [Titer] Non-Reactive Normal Nonreactive [facility] Comment on above: Order Comment: Speci men Type: CEREBROSPINAL FLUIDOrdering Facility: [facility] Address: [address] [place] [address] Result Comment: CSF VDRL test is used an aid in diagnosis of neurosyphilis. CSF VDRL detects non-treponemal antibodies and has lower sensitivity than CSF treponemal tests such as FTA, therefore a negative result cannot reliably rule out neurosyphilis. Clinical correlation is required. Performed By: #### 3 1146-4 ####[facility] [id number] [address] [place] CNPHaleigh 07-22-2022 CNPN Telephone ([facility]) NOÉ [id number]) 1965 M Date Time Provider Department 07/22/22 LORRI PLASCENCIA During your visit today, we recorded the following information about you: Petrona Darrel 07/22/2022 2:59 PM Signed 07/22/2022 Spouse called in, to advised they waiting for visit yesterday and never got connected, spouse wants to know if a in person visit would be better and needs to get visit rescheduled. MG Ana Jaffe RN 07/22/2022 3:46 PM Signed RN called spouse Kari, no answer, left a detailed message that there is a phone number they can call for assistance with My Chart virtual appointment, or if they prefer, they can schedule an in-person visit, left the phone number for scheduling. Ana Jaffe RN Allergies As of Date: 07/22/2022 (No Known Allergies) Date Reviewed: 04/30/2022 Reviewed by: Champ Rosas LPN - Fully Assessed Reason for Visit: Appointment [186] Clinic Nurse - Other [3602] Prescriptions as of 07/22/2022 - CPAP/BIPAP/OTHER Type .CPAPSettings into a note to see current settings/supplies/DM E information. - aspirin, enteric coated (ASPIRIN, ENTERIC COATED) 81 mg EC tablet once daily. - omeprazole (PRILOSEC) 20 mg capsule 40 mg once daily. - oxaprozin (DAYPRO) 600 mg tablet as needed. - simvastatin (ZOCOR) 20 mg tablet daily at bedtime. Problem List As Of Date 07/22/2022 Noted Resolved Bilateral high frequency sensorineural hearing *04/27/2022 Tinnitus, bilateral [H93.13] 04/27/2022 Encounter Status:Closed by ANA JAFFE on 07/22/22 [facility] 05-07-2022 [facility] HNO ID: [id number] Author: Nicole Girard, automotive welder Service: Radiology Author Type: Stereo Map Plotter Operator Type: Allied Health Filed: 05/07/2022 1:54 PM Note Text: Radiology Service Progress Note PATIENT NAME: Noé Kramer Jeffery DATE OF SERVICE: May 07, 2022 TIME: 1:31 PM PATIENT IDENTITY VERIFICATION COMPLETED USING TWO (2) IDENTIFIERS: Name and Date of confirmed by patient verbally and Name and Date of confirmed by identification band. FALL SCREENING: Has the patient had 2 falls in the last year or 1 fall with injury or currently using an Ambulatory Assistive Device (Walker, Cane, Wheelchair, Crutches, etc.)? No PATIENT GENDER DATA: Male PATIENT RELEVANT IMPLANT DATA REVIEWED: Yes RADIOLOGY DEPARTMENT: MR; Exam(s) Completed: Head: Routine Brain PERIPHERAL IV DATA: Not applicable SIGNED BY: Nicole Huffman, automotive welder May 07, 2022 1:31 PM [facility] MRI 3D POST PROCESSINGon MRI 3D POST PROCESSING * * *Final Report* * * DATE OF EXAM: May 07 2022 1:47PM [facility] 0280 - MRI 3D POST PROCESSING / PROCEDURE REASON: Cognitive changes * * * * Physician Interpretation * * * * EXAMINATION: MRI BRAIN WO IVCON, MRI 3D POST PROCESSING CLINICAL HISTORY: Cognitive changes TECHNIQUE: Axial FLORIDALMA FLAIR, FLORIDALMA T2, diffusion and susceptibility weighted imaging without contrast, using the ADNI dementia protocol and 3-D post-processing using the Health Data Minder software at an independent workstation with concurrent physician supervision and images were created, reviewed and archived. MQ: [id number] COMPARISON: None RESULT: QUALITATIVE: Acute Intracranial Process: None. Chronic Intracranial Process: Mild microvascular ischemic change.. Age related white matter changes ([facility]) rating: White matter lesions: 1 Basal ganglia lesions: 0 Prior intracranial hemorrhage: Parenchymal microhemorrhages: 0 Other (siderosis/macrohemo rrhages (>10mm): Not Applicable Amyloid Related Imaging Abnormalities: ARIA-E: N/A ARIA-H Microhemorrhage: N/A ARIA-H Siderosis: N/A Qualitative brain and hippocampal volume loss for age: Advanced qualitative volume loss for the patient's age. Ventricles: Commensurate with volume loss. Brain Parenchymal Signal and Morphology: The brain parenchyma is otherwise within normal limits of signal and morphology. There is no evidence of an intracranial mass or extraaxial fluid collection. Other Significant Findings: None. QUANTITATIVE: Exam Quality: Adequate for volumetric analysis. Segmentation: Negligible mismapping by visual inspection. Quantitative Data: Total Hippocampal Volume: Percentile for Age: 1 Asymmetry Index: 5.6 Inferior Lateral Vent Volume: Percentile for age: 98 Asymmetry Index: -32.1 Superior Lateral Vent Volume: Percentile for age: 96 Asymmetry Index: -22 Temporal Lobe Volume: Temporal Lobe Percentile for Age: 1 Temporal Lobe Asymmetry Index: 2.2 Frontal Lobe Volume: Frontal Lobe Percentile for Age: 1 Frontal Lobe Asymmetry Index: 4.1 Parietal Lobe Volume: Parietal Lobe Percentile for Age:8 Occipital Lobe Volume: Occipital Lobe Percentile for Age: 6 Whole Brain Volume Brain Percentile for Age: 1 Concordance between qualitative and quantitative hippocampal volume assessment: Concordant Change in brain volumes: No previous volumetric study for comparison Brain Volume Change: N/A Hippocampal Volume Change: N/A Superior Lateral Ventricle Volume Change: N/A Inferior Lateral Ventricle Volume Change: N/A Mean hippocampal volume loss among normal elderly: 0.7% per year, (-0.3 to 1.7; Tigist 2008; also Rc 2010). IMPRESSION: * No evidence of an acute intracranial process or intracranial mass. * Severe generalized volume loss. * Hippocampal volumes at the first percentile when compared to age matched normal controls by quantitative analysis. * Mild white matter disease which is nonspecific but likely reflective of chronic microvascular ischemia. * No evidence of parenchymal microhemorrhages by MRI. REFERENCES: White Matter Lesions: 0 = No lesions, including symmetrical, well-defined caps or bands 1 = Focal Lesions 2 = Beginning of Hilbert 3 = Diffuse Involvement of Entire Region Basal Ganglia Lesions: 0 = No Lesions 1 = 1 Focal Lesion (>5mm) 2 = >1 Focal Lesion (>5mm) 3 = Confluent Lesions Rc Lux, et al. The clinical use of structural MRI in Alzheimer disease. Nature Reviews Neurology 6;67 (2010). Tigist et al. Validation of a fully automated 3D hippocampal segmentation method using subjects with Alzheimer's disease mild cognitive impairment, and elderly controls. Neuroimage 43;59 (2008). Wahlund et al. A New Rating Scale for Age-Related White Matter Changes Applicable to MRI and CT. Stroke. 32:1318 (2001). * Asymmetry index defined as difference between left and right volumes divided by mean or [(L-R/Mean) x 100] (%). Age-matched reference charts measure total hippocampal volume (% of intracranial volume). See results from the analysis charts for details. Assistant Professor Sculpture: MARISELA Transcribe Date/Time: May 07 2022 2:51P Dictated by : MANISH PRICE MD This examination was interpreted and the report reviewed and electronically signed by: MANISH PRICE MD on May 07 2022 3:06PM EST [id number] CN Normal [facility] MRI BRAIN WO IVCONon 05-07-2 022 MRI BRAIN WO IVCON * * *Final Report* * * DATE OF EXAM: May 07 2022 1:47PM [facility] 0294 - MRI BRAIN WO IVCON / PROCEDURE REASON: Cognitive changes * * * * Physician Interpretation * * * * EXAMINATION: MRI BRAIN WO IVCON, MRI 3D POST PROCESSING CLINICAL HISTORY: Cognitive changes TECHNIQUE: Axial FLORIDALMA FLAIR, FLORIDALMA T2, diffusion and susceptibility weighted imaging without contrast, using the ADNI dementia protocol and 3-D post-processing using the [employer] Data [employer]der software at an independent workstation with concurrent physician supervision and images were created, reviewed and archived. MQ: [id number] COMPARISON: None RESULT: QUALITATIVE: Acute Intracranial Process: None. Chronic Intracranial Process: Mild microvascular ischemic change.. Age related white matter changes (ARW) rating: White matter lesions: 1 Basal ganglia lesions: 0 Prior intracranial hemorrhage: Parenchymal microhemorrhages: 0 Other (siderosis/macrohemo rrhages (>10mm): Not Applicable Amyloid Related Imaging Abnormalities: ARIA-E: N/A ARIA-H Microhemorrhage: N/A ARIA-H Siderosis: N/A Qualitative brain and hippocampal volume loss for age: Advanced qualitative volume loss for the patient's age. Ventricles: Commensurate with volume loss. Brain Parenchymal Signal and Morphology: The brain parenchyma is otherwise within normal limits of signal and morphology. There is no evidence of an intracranial mass or extraaxial fluid collection. Other Significant Findings: None. QUANTITATIVE: Exam Quality: Adequate for volumetric analysis. Segmentation: Negligible mismapping by visual inspection. Quantitative Data: Total Hippocampal Volume: Percentile for Age: 1 Asymmetry Index: 5.6 Inferior Lateral Vent Volume: Percentile for age: 98 Asymmetry Index: -32.1 Superior Lateral Vent Volume: Percentile for age: 96 Asymmetry Index: -22 Temporal Lobe Volume: Temporal Lobe Percentile for Age: 1 Temporal Lobe Asymmetry Index: 2.2 Frontal Lobe Volume: Frontal Lobe Percentile for Age: 1 Frontal Lobe Asymmetry Index: 4.1 Parietal Lobe Volume: Parietal Lobe Percentile for Age:8 Occipital Lobe Volume: Occipital Lobe Percentile for Age: 6 Whole Brain Volume Brain Percentile for Age: 1 Concordance between qualitative and quantitative hippocampal volume assessment: Concordant Change in brain volumes: No previous volumetric study for comparison Brain Volume Change: N/A Hippocampal Volume Change: N/A Superior Lateral Ventricle Volume Change: N/A Inferior Lateral Ventricle Volume Change: N/A Mean hippocampal volume loss among normal elderly: 0.7% per year, (-0.3 to 1.7; Tigist 2008; also Rc 2010). IMPRESSION: * No evidence of an acute intracranial process or intracranial mass. * Severe generalized volume loss. * Hippocampal volumes at the first percentile when compared to age matched normal controls by quantitative analysis. * Mild white matter disease which is nonspecific but likely reflective of chronic microvascular ischemia. * No evidence of parenchymal microhemorrhages by MRI. REFERENCES: White Matter Lesions: 0 = No lesions, including symmetrical, well-defined caps or bands 1 = Focal Lesions 2 = Beginning of Hilbert 3 = Diffuse Involvement of Entire Region Basal Ganglia Lesions: 0 = No Lesions 1 = 1 Focal Lesion (>5mm) 2 = >1 Focal Lesion (>5mm) 3 = Confluent Lesions Rc Lux, et al. The clinical use of structural MRI in Alzheimer disease. Nature Reviews Neurology 6;67 (2010). Tigist et al. Validation of a fully automated 3D hippocampal segmentation method using subjects with Alzheimer's disease mild cognitive impairment, and elderly controls. Neuroimage 43;59 (2008). Juan Pablo et al. A New Rating Scale for Age-Related White Matter Changes Applicable to MRI and CT. Stroke. 32:1318 (2001). * Asymmetry index defined as difference between left and right volumes divided by mean or [(L-R/Mean) x 100] (%). Age-matched reference charts measure total hippocampal volume (% of intracranial volume). See results from the analysis charts for details. Assistant Professor Sculpture: MARISELA Transcribe Date/Time: May 07 2022 2:51P Dictated by : MANISH PRICE MD This examination was interpreted and the report reviewed and electronically signed by: MANISH PRICE MD on May 07 2022 3:06PM EST [id number] CN Normal [facility] No Panel Informationon 05-07 [facility] MRI BRAIN WO W CONon 022 MRI BRAIN WO W CON EXAMINATION: MRI BRAIN WO W CON HISTORY: Amnesia , syncope COMPARISON: No relevant comparison available. TECHNIQUE: A variety of imaging planes and parameters were utilized for visualization of suspected pathology. Images were performed without and with ml Dotarem contrast. FINDINGS: CEREBRUM: No edema, hemorrhage, mass, acute infarction, or inappropriate atrophy. CEREBELLUM: No edema, hemorrhage, mass, acute infarction, or inappropriate atrophy. BRAINSTEM: No edema, hemorrhage, mass, acute infarction, or inappropriate atrophy. CSF SPACES: Ventricles, cisterns, and sulci are appropriate for age. No hydrocephalus, subarachnoid hemorrhage, or mass. SKULL: No mass or other significant visible lesion. SINUSES: Limited views demonstrate no significant mucosal thickening or fluid. ORBITS: Limited views are unremarkable. OTHER: Small pituitary gland against the floor of the predominantly fluid-filled fossa without enlargement of the fossa. No abnormal meningeal or parenchymal enhancement. IMPRESSION: 1. No suspicious findings to account for patient's symptoms. 2. Small pituitary gland of questionable clinical significance; atrophy versus compressed against the floor due to an arachnoid cyst. No enlargement of the pituitary fossa. Electronically authenticated by: LUCIE TOWNSEND Date: 2022-01-21 17:28 Normal [facility] US CAROTID ART BILon 022 US CAROTID ART KISHAN EXAMINATION: US CAROTID ART KISHAN HISTORY: Amnesia ; syncope COMPARISON: No relevant comparison available. TECHNIQUE: Duplex Doppler ultrasound analysis of carotid and vertebral arteries. . Bilateral carotid arterial duplex examination was performed using B-mode, color flow and spectral analysis. Carotid stenosis is reported according to validated velocity parameters, similar to NASCET criteria. FINDINGS: RIGHT CAROTID ARTERY: No visible stenosis or significant plaque. RIGHT VERTEBRAL: Antegrade flow. Subclavian: PSV: 100.0 cm/s EDV: 0.0 cm/s CCA: Prox: PSV: 112.4 cm/s EDV: 15.5 cm/s Mid: PSV: 113.4 cm/s EDV: 21.5 cm/s Distal: PSV: 101.7 cm/s EDV: 21.5 cm/s BULB: PSV: 81.0 cm/s EDV: 15.0 cm/s ICA: Prox: PSV: 21.7 cm/s EDV: 7.5 cm/s Mid: PSV: 48.0 cm/s EDV: 17.3 cm/s Distal: PSV: 51.7 cm/s EDV: 21.1 cm/s ECA: PSV: 67.7 cm/s EDV: 9.5 cm/s VERTEBRAL: PSV: 49.0 cm/s EDV: 16.0 cm/s ICA/CCA ratio: PSV: 0.8 EDV: 0.7 LEFT CAROTID ARTERY: No visible stenosis or significant plaque. LEFT VERTEBRAL: Antegrade flow. Subclavian: PSV: 112.9 cm/s EDV: 0.0 cm/s CCA: Prox: PSV: 86.2 cm/s EDV: 18.9 cm/s Mid: PSV: 101.7 cm/s EDV: 25.4 cm/s Distal: PSV: 108.2 cm/s EDV: 29.2 cm/s BULB: PSV: 84.9 cm/s EDV: 25.4 cm/s ICA: Prox: PSV: 49.0 cm/s EDV: 16.0 cm/s Mid: PSV: 61.1 cm/s EDV: 22.6 cm/s Distal: PSV: 50.1 cm/s EDV: 21.5 cm/s ECA: PSV: 87.5 cm/s EDV: 13.7 cm/s VERTEBRAL: PSV: 33.2 cm/s EDV: 9.7 cm/s ICA/CCA ratio: PSV: 0.8 EDV: 0.9 IMPRESSION: 1. 0-49% flow stenosis within the right and left carotid arteries. 2. No appreciable atherosclerotic plaque or vessel narrowing. Electronically authenticated by: LUCIE TOWNSEND Date: 2022-01-21 17:18 Normal [facility] H PYLORI ANTIBODY IGGon 12-19 H. PYLORI IGG ABS 0.72 Index Value Normal 0.00-0.79 [facility] Comment on above: Result Comment: Nega tive <0.80 Equivocal 0.80 - 0.89 Positive >0.89 Performed By: #### H PYLLC #### [facility] [address] [place] [address] Dr. Janell Mraquez INSULINon 01-13-2022 Insulin 15.8 uIU/mL Normal 2.6-24.9 [facility] Comment on above: Performed By: #### T 7, TSH, CMP, AKSHAT, LIPA, LIPID #### [facility] [address] [address] [address] Janell Marquez VIT D 25-OH LABCORPon 2021 Vitamin D, 25-Hydroxy 29.7 ng/mL Critically low 30.0-100.0 [facility] Comment on above: Result Comment: Nelsy min D deficiency has been defined by the [place] [employer] and an Endocrine Society practice guideline as a level of serum 25-OH vitamin D less than 20 ng/mL (1,2). The Endocrine Society went on to further define vitamin D insufficiency as a level between 21 and 29 ng/mL (2). 1. IOM ([place] [employer]). 2010. Dietary reference intakes for calcium and D. [place]: The National Academies Press. 2. Kevin MF, Mey LOPEZ, Bharat SPENCER, et al. Evaluation, treatment, and prevention of vitamin D deficiency: an Endocrine Society clinical practice guideline. JCEM. 2010; 96(7):1911-30. Performed By: #### T 7, TSH, CMP, AKSHAT, LIPA, LIPID #### [facility] [address] [address] [address] Janell Marquez AMMONIAon 01-12-2022 Ammonia (P) [Mass/Vol] ug/dL Critically low 11-32 [facility] Comment on above: Performed By: #### T 7, TSH, CMP, AKSHAT, LIPA, LIPID #### [facility] [address] [address] [address] Janell Marquez AMYLASEon 01-12-2022 Amylase [Catalytic activity/Vol] 49 U/L Normal 25-115 [facility] Comment on above: Performed By: #### T 7, TSH, CMP, AKSHAT, LIPA, LIPID #### [facility] [address] [address] [address] Janell Marquez CBC AUTO DIFFon 01-12-2022 BASO # 0.0 103/ul Normal 0.0-0.1 [facility] Comment on above: Performed By: #### T 7, TSH, CMP, AKSHAT, LIPA, LIPID #### [facility] [address] [place] [address] Dr. Janell Marquez Basophils/100 WBC (Bld) 0.2 % Normal 0.2-2.0 [facility] Comment on above: Performed By: #### T 7, TSH, CMP, AKSHAT, LIPA, LIPID #### [facility] [address] [place] [address] Dr. Janell Marquez EO # 0.0 103/ul Normal 0.0-0.7 [facility] Comment on above: Performed By: #### T 7, TSH, CMP, AKSHAT, LIPA, LIPID #### [facility] [address] [place] [address] Dr. Janell Marquez Eosinophils/100 WBC (Bld) 0.3 % Critically low 0.9-7.0 [facility] Comment on above: Performed By: #### T 7, TSH, CMP, AKSAHT, LIPA, LIPID #### [facility] [address] [place] [address] Dr. Janell Marquez Erythrocyte distribution width (RBC) [Ratio] 16.0 % Critically high 11.0-15.0 [facility] Comment on above: Performed By: #### T 7, TSH, CMP, AKSHAT, LIPA, LIPID #### [facility] [address] [place] [address] Dr. Janell Marquez Hematocrit (Bld) [Volume fraction] 46.8 % Normal 42.0-54.0 [facility] Comment on above: Performed By: #### T 7, TSH, CMP, AKSHAT, LIPA, LIPID #### [facility] [address] [place] [address] Dr. Janell Marquez Hemoglobin (Bld) [Mass/Vol] 14.9 g/dL Normal 14.0-18.0 [facility] Comment on above: Performed By: #### T 7, TSH, CMP, AKSHAT, LIPA, LIPID #### [facility] [address] [place] [address] Dr. Janell Marquez IG # 0.01 10e3/ul Normal 0.00-0.03 [facility] Comment on above: Performed By: #### T 7, TSH, CMP, AKSHAT, LIPA, LIPID #### [facility] [address] [address] [address] Janell Marquez IG % 0.2 % Normal 0.0-0.5 [facility] Comment on above: Performed By: #### T 7, TSH, CMP, AKSHAT, LIPA, LIPID #### [facility] [address] [place] [address] Dr. Janell Marquez LYMPH # 1.0 103/ul Critically low 1.2-3.8 [facility] Comment on above: Performed By: #### T 7, TSH, CMP, AKSHAT, LIPA, LIPID #### [facility] [address] [place] [address] Dr. Janell Marquez Lymphocytes/100 WBC (Bld) 16.2 % Critically low 20.5-60.0 [facility] Comment on above: Performed By: #### T 7, TSH, CMP, AKSHAT, LIPA, LIPID #### [facility] [address] [place] [address] Dr. Janell Marquez MANUAL DIFF REQ NO Normal [facility] Comment on above: Performed By: #### T 7, TSH, CMP, AKSHAT, LIPA, LIPID #### [facility] [address] [place] [address] Dr. Janell Marquez MCH (RBC) [Entitic mass] 23.9 pg Critically low 25.9-34.0 [facility] Comment on above: Performed By: #### T 7, TSH, CMP, AKSHAT, LIPA, LIPID #### [facility] [address] [place] [address] Dr. Janell Marquez MCHC (RBC) [Mass/Vol] 31.8 g/dL Normal 29.9-35.2 [facility] Comment on above: Performed By: #### T 7, TSH, CMP, AKSHAT, LIPA, LIPID #### [facility] [address] [place] [address] Dr. Janell Marquez MCV (RBC) [Entitic vol] 75.0 fL Critically low 80.0-94.0 [facility] Comment on above: Performed By: #### T 7, TSH, CMP, AKSHAT, LIPA, LIPID #### [facility] [address] [place] [address] Dr. Janell Marquez MONO # 0.4 103/ul Normal 0.3-0.8 [facility] Comment on above: Performed By: #### T 7, TSH, CMP, AKSHAT, LIPA, LIPID #### [facility] [address] [place] [address] Dr. Janell Marquez Monocytes/100 WBC (Bld) 6.0 % Normal 1.7-12.0 [facility] Comment on above: Performed By: #### T 7, TSH, CMP, AKSHAT, LIPA, LIPID #### [facility] [address] [place] [address] Dr. Janell Marquez NEUT # 4.5 103/ul Normal 1.4-6.5 [facility] Comment on above: Performed By: #### T 7, TSH, CMP, AKSHAT, LIPA, LIPID #### [facility] [address] [place] [address] Dr. Janell Marquez Neutrophils/100 WBC (Bld) 77.1 % Critically high 43.0-75.0 [facility] Comment on above: Performed By: #### T 7, TSH, CMP, AKSHAT, LIPA, LIPID #### [facility] [address] [place] [address] Dr. Janell Marquez Platelet mean volume (Bld) [Entitic vol] 9.3 fL Critically low 9.5-13.5 [facility] Comment on above: Performed By: #### T 7, TSH, CMP, AKSHAT, LIPA, LIPID #### [facility] [address] [place] [address] Dr. Janell Marquez PLT 202 103/ul Normal 150-450 [facility] Comment on above: Performed By: #### T 7, TSH, CMP, AKSHAT, LIPA, LIPID #### [facility] [address] [place] [address] Dr. Janell Marquez RBC 6.24 106/ul Critically high 4.70-6.10 [facility] Comment on above: Performed By: #### T 7, TSH, CMP, AKSHAT, LIPA, LIPID #### [facility] [address] [address] [address] Janell Marquez WBC 5.9 103/ul Normal 4.0-11.0 [facility] Comment on above: Performed By: #### T 7, TSH, CMP, AKSHAT, LIPA, LIPID #### [facility] [address] [place] [address] Dr. Janell Marquez FREE THYROXINE INDEX T7on FTI 3.14 Normal 1.30-4.50 [facility] Comment on above: Performed By: #### T 7, TSH, CMP, AKSHAT, LIPA, LIPID #### [facility] [address] [place] [address] Dr. Janell Marquez T3U 32.0 % Critically low 33.0-40.0 [facility] Comment on above: Performed By: #### T 7, TSH, CMP, AKSHAT, LIPA, LIPID #### [facility] [address] [place] [address] Dr. Janell Marquez T4 [Mass/Vol] 9.80 ug/dL Normal 4.50-12.[address] [facility] Comment on above: Performed By: #### T 7, TSH, CMP, AKSHAT, LIPA, LIPID #### [facility] [address] [place] [address] Dr. Janell Marquez GLYCOHEMOGLOBIN A1Con 2021 ADA RECOMMENDATION SEE BELOW Normal [facility] Comment on above: Result Comment: ADA RECOMMENDED LIMIT 4.0 - 6.0 ADA THERAPEUTIC TARGET < 7.0 ACTION SUGGESTED > 7.0 Performed By: #### A 1C #### [facility] [address] [place] [address] Dr. Janell Marquez Glucose [Mass/Vol] 120 mg/dL Normal [facility] Comment on above: Performed By: #### A 1C #### [facility] [address] [place] [address] Dr. Janell Marquez HbA1c (Bld) [Mass fraction] 5.8 % Normal 4.5-6.2 [facility] Comment on above: Performed By: #### A 1C #### [facility] [address] [place] [address] Dr. Janell Marquez IRONon 01-12-2022 Iron [Mass/Vol] 70.0 ug/dL Normal 65.0-175.0 [facility] Comment on above: Performed By: #### T 7, TSH, CMP, AKSHAT, LIPA, LIPID #### [facility] [address] [place] [address] Dr. Janell Marquez LIPASEon 01-12-2022 Lipase [Catalytic activity/Vol] 72.0 U/L Critically low 73.0-393.0 [facility] Comment on above: Performed By: #### T 7, TSH, CMP, AKSHAT, LIPA, LIPID #### [facility] [address] [place] [address] Dr. Janell Marquez LIPID PROFILEon 01-12-2022 CHOL-HDL RATIO NORM SEE BELOW Normal [facility] Comment on above: Result Comment: 3.3 - 4.4 LOW RISK 4.4 - 7.1 AVERAGE RISK 7.1 - 11.0 MODERATE RISK >11.0 HIGH RISK Performed By: #### T 7, TSH, CMP, AKSHAT, LIPA, LIPID #### [facility] [address] [place] [address] Dr. Janell Marquez Cholesterol [Mass/Vol] 220 mg/dL Critically high <=200 [facility] Comment on above: Performed By: #### T 7, TSH, CMP, AKSHAT, LIPA, LIPID #### [facility] [address] [place] [address] Dr. Janell Marquez Cholesterol in HDL [Mass/Vol] 47 mg/dL Normal 40-60 [facility] Comment on above: Performed By: #### T 7, TSH, CMP, AKSHAT, LIPA, LIPID #### [facility] [address] [place] [address] Dr. Janell Marquez Cholesterol in LDL [Mass/Vol] 157.4 mg/dL Normal [facility] Comment on above: Performed By: #### T 7, TSH, CMP, AKSHAT, LIPA, LIPID #### [facility] [address] [address] [address] Janell Marquez Cholesterol.total/Ch olesterol in HDL [Mass ratio] 4.7 {ratio} Normal [facility] Comment on above: Performed By: #### T 7, TSH, CMP, AKSHAT, LIPA, LIPID #### [facility] [address] [address] [address] Janell Marquez HDL NORMAL > or = 60 mg/dl - LOW CARDIOVASCULAR RISK <40 mg/dl - HIGH CARDIOVASCULAR RISK Normal [facility] Comment on above: Performed By: #### T 7, TSH, CMP, AKSHAT, LIPA, LIPID #### [facility] [address] [address] [address] Janell Marquez LDL CALC NORMAL SEE BELOW Normal [facility] Comment on above: Result Comment: <100 mg/dl OPTIMAL 100 - 129 mg/dl NEAR OR ABOVE OPTIMAL 130 - 159 mg/dl BORDERLINE HIGH 160 - 189 mg/dl HIGH >190 mg/dl VERY HIGH Performed By: #### T 7, TSH, CMP, AKSHAT, LIPA, LIPID #### [facility] [address] [address] [address] Janell Marquez Triglyceride [Mass/Vol] 78 mg/dL Normal <=150 [facility] Comment on above: Performed By: #### T 7, TSH, CMP, AKSHAT, LIPA, LIPID #### [facility] [address] [address] [address] Janell Marquez VLDL CALC 15.6 mg/dL Normal [facility] Comment on above: Performed By: #### T 7, TSH, CMP, AKSHAT, LIPA, LIPID #### [facility] [address] [address] [address] Janell Marquez PROF 14(COMP METB)on 022 Albumin [Mass/Vol] 3.5 g/dL Normal 3.4-5.0 [facility] Comment on above: Performed By: #### T 7, TSH, CMP, AKSHAT, LIPA, LIPID #### [facility] [address] [address] [address] Janell Marquez Albumin/Globulin [Mass ratio] 0.9 {ratio} Normal [facility] Comment on above: Performed By: #### T 7, TSH, CMP, AKSHAT, LIPA, LIPID #### [facility] [address] [address] [address] Janell Marquez ALP [Catalytic activity/Vol] 69 U/L Normal 46-116 [facility] Comment on above: Performed By: #### T 7, TSH, CMP, AKSHAT, LIPA, LIPID #### [facility] [address] [address] [address] Janell Marquez ALT [Catalytic activity/Vol] 19 U/L Normal 16-63 [facility] Comment on above: Performed By: #### T 7, TSH, CMP, AKSHAT, LIPA, LIPID #### [facility] [address] [place] [address] Dr. Janell Marquez Anion gap [Moles/Vol] 12.1 mmol/L Normal [facility] Comment on above: Performed By: #### T 7, TSH, CMP, AKSHAT, LIPA, LIPID #### [facility] [address] [place] [address] Dr. Janell Marquez AST [Catalytic activity/Vol] 15 U/L Normal 15-37 [facility] Comment on above: Performed By: #### T 7, TSH, CMP, AKSHAT, LIPA, LIPID #### [facility] [address] [address] [address] Janell Marquez Bilirubin [Mass/Vol] 0.8 mg/dL Normal 0.2-1.0 [facility] Comment on above: Performed By: #### T 7, TSH, CMP, AKSHAT, LIPA, LIPID #### [facility] [address] [address] [address] Janell Marquez Calcium [Mass/Vol] 8.5 mg/dL Normal 8.5-10.1 [facility] Comment on above: Performed By: #### T 7, TSH, CMP, AKSHAT, LIPA, LIPID #### [facility] [address] [place] [address] Dr. Janell Marquez Chloride [Moles/Vol] 105 mmol/L Normal 98-107 [facility] Comment on above: Performed By: #### T 7, TSH, CMP, AKSHAT, LIPA, LIPID #### [facility] [address] [address] [address] Janell Marquez CO2 [Moles/Vol] 28.0 mmol/L Normal 21.0-32.0 [facility] Comment on above: Performed By: #### T 7, TSH, CMP, AKSHAT, LIPA, LIPID #### [facility] [address] [address] [address] Janell Marquez Creatinine [Mass/Vol] 1.11 mg/dL Normal 0.70-1.30 [facility] Comment on above: Performed By: #### T 7, TSH, CMP, AKSHAT, LIPA, LIPID #### [facility] [address] [address] [address] Janell Marquez EGFR-AF TURKS AND CAICOS ISLANDER >60 Normal >=60 [facility] Comment on above: Performed By: #### T 7, TSH, CMP, AKSHAT, LIPA, LIPID #### [facility] [address] [address] [address] Janell Marquez EGFR-NON AF TURKS AND CAIC[place] ISLANDER >60 Normal >=60 [facility] Comment on above: Performed By: #### T 7, TSH, CMP, AKSHAT, LIPA, LIPID #### [facility] [address] [address] [address] Janell Marquez Globulin (S) [Mass/Vol] 3.7 g/dL Normal [facility] Comment on above: Performed By: #### T 7, TSH, CMP, AKSHAT, LIPA, LIPID #### [facility] [address] [address] [address] Janell Marquez Glucose [Mass/Vol] 115 mg/dL Critically high 74-106 [facility] Comment on above: Performed By: #### T 7, TSH, CMP, AKSHAT, LIPA, LIPID #### [facility] [address] [address] [address] Janell Marquez Potassium [Moles/Vol] 4.1 mmol/L Normal 3.5-5.1 [facility] Comment on above: Performed By: #### T 7, TSH, CMP, AKSHAT, LIPA, LIPID #### [facility] [address] [place] [address] Dr. Jaenll Marquez Protein [Mass/Vol] 7.2 g/dL Normal 6.4-8.2 [facility] Comment on above: Performed By: #### T 7, TSH, CMP, AKSHAT, LIPA, LIPID #### [facility] [address] [place] [address] Dr. Janell Marquez Sodium [Moles/Vol] 141 mmol/L Normal 136-145 [facility] Comment on above: Performed By: #### T 7, TSH, CMP, AKSHAT, LIPA, LIPID #### [facility] [address] [place] [address] Dr. Janell Marquez Urea nitrogen [Mass/Vol] 16.0 mg/dL Normal 7.0-18.0 [facility] Comment on above: Performed By: #### T 7, TSH, CMP, AKSHAT, LIPA, LIPID #### [facility] [address] [place] [address] Dr. Janell Marquez Urea nitrogen/Creatinine [Mass ratio] 14.4 mg/mg Normal [facility] Comment on above: Performed By: #### T 7, TSH, CMP, AKSHAT, LIPA, LIPID #### [facility] [address] [place] [address] Dr. Janell Marquez TSHon 01-12-2022 TSH 1.412 uIU/mL Normal 0.358-3.740 [facility] Comment on above: Performed By: #### T 7, TSH, CMP, AKSHAT, LIPA, LIPID #### [facility] [address] [place] [address] Dr. Janell Marquez VIT B12 AND FOLATEon 022 Cobalamin (Vitamin B12) [Mass/Vol] 411.0 pg/mL Normal 193.0-986.0 [facility] Comment on above: Performed By: #### T 7, TSH, CMP, AKSHAT, LIPA, LIPID #### [facility] [address] [place], [place] [address] Dr. Janell Marquez FOLATE 11.10 ng/mL Normal 8.60-58.90 [facility] Comment on above: Performed By: #### T 7, TSH, CMP, AKSHAT, LIPA, LIPID #### [facility] [address] [place], [place] [address] Dr. Janell Marquez BASIC METABOLIC PANELon Calcium [Mass/Vol] 8.3 mg/dL Low 8.6-10.3 [facility] Comment on above: Order Comment: No: D o not add to previous draw Performed By: #### 0 0071 #### [facility] [address] [place] [address], [place] Chloride [Moles/Vol] 104 mmol/L Normal 98-107 [facility] Comment on above: Order Comment: No: D o not add to previous draw Performed By: #### 0 0071 #### [facility] [address] [place] [address], [place] CO2 [Moles/Vol] 29 mmol/L Normal 21-31 [facility] Comment on above: Order Comment: No: D o not add to previous draw Performed By: #### 0 0071 #### [facility] [address] [place] [address], [place] Creatinine [Mass/Vol] 0.81 mg/dL Normal 0.70-1.30 [facility] Comment on above: Order Comment: No: D o not add to previous draw Performed By: #### 0 0071 #### [facility] [address] [place] [address], [place] GFR/1.73 sq M.predicted among blacks MDRD (S/P/Bld) [Vol rate/Area] mL/min/{1.73_m2} Normal >60 [facility] Comment on above: Order Comment: No: D o not add to previous draw Performed By: #### 0 0071 #### [facility] [address] [place] [address], [facility] GFR/1.73 sq M.predicted among non-blacks MDRD (S/P/Bld) [Vol rate/Area] mL/min/{1.73_m2} Normal >60 [facility] Comment on above: Order Comment: No: D o not add to previous draw Performed By: #### 0 0071 #### [facility] [address] [place] [address], [facility] Glucose [Mass/Vol] 144 mg/dL High 70-[address] [facility] Comment on above: Order Comment: No: D o not add to previous draw Performed By: #### 0 0071 #### [facility] [address] [place] [address], [facility] Potassium [Moles/Vol] 3.6 mmol/L Normal 3.5-5.1 [facility] Comment on above: Order Comment: No: D o not add to previous draw Performed By: #### 0 0071 #### [facility] [address] [place] [address], [facility] Sodium [Moles/Vol] 139 mmol/L Normal 136-[address] [facility] Comment on above: Order Comment: No: D o not add to previous draw Performed By: #### 0 0071 #### [facility] [address] [place] [address], [facility] Urea nitrogen [Mass/Vol] 9 mg/dL Normal 7-25 [facility] Comment on above: Order Comment: No: D o not add to previous draw Performed By: #### 0 0071 #### [facility] [address] [place] [address], [facility] CBC COMPLETE BLOOD COUNTon 0 - Erythrocyte distribution width (RBC) [Ratio] 14.6 % Normal 11.5-15.0 [facility] Comment on above: Order Comment: No: D o not add to previous draw Performed By: #### 0 0071 #### [facility] [address] [place] [address], [facility] Hematocrit (Bld) [Volume fraction] 38.8 % Low 39.0-50.0 [facility] Comment on above: Order Comment: No: D o not add to previous draw Performed By: #### 0 0071 #### [facility] [address] [place] [address], [facility] Hemoglobin (Bld) [Mass/Vol] 12.1 g/dL Low 13.0-17.0 [facility] Comment on above: Order Comment: No: D o not add to previous draw Performed By: #### 0 0071 #### [facility] [address] [place] [address], [facility] MCH (RBC) [Entitic mass] 23.7 pg Low 27.0-33.0 [facility] Comment on above: Order Comment: No: D o not add to previous draw Performed By: #### 0 0071 #### [facility] [address] [place] [address], [facility] MCHC (RBC) [Mass/Vol] 31.2 g/dL Low 32.0-35.0 [facility] Comment on above: Order Comment: No: D o not add to previous draw Performed By: #### 0 0071 #### [facility] [address] [place] [address], [facility] MCV (RBC) [Entitic vol] 75.9 fL Low 82.0-98.0 [facility] Comment on above: Order Comment: No: D o not add to previous draw Performed By: #### 0 0071 #### [facility] [address] [place] [address], [facility] Nucleated RBC/100 WBC (Bld) [Ratio] 0 % Normal 0-0 [facility] Comment on above: Order Comment: No: D o not add to previous draw Performed By: #### 0 0071 #### [facility] [address] [place] [address], [facility] PLAT CNT 182 10*3/uL Normal 150-400 [facility] Comment on above: Order Comment: No: D o not add to previous draw Performed By: #### 0 0071 #### [facility] [address] [place] [address], [facility] RBC (Bld) [#/Vol] 5.11 10*6/uL Normal 4.20-5.[address] [facility] Comment on above: Order Comment: No: D o not add to previous draw Performed By: #### 0 0071 #### [facility] [address] [place] [address], [facility] WBC (Bld) [#/Vol] 3.64 10*3/uL Low 4.00-10.[address] [facility] Comment on above: Order Comment: No: D o not add to previous draw Performed By: #### 0 0071 #### [facility] [address] [place] [address], [facility] MAGNESIUM BLOODon 07-26-2020 Magnesium [Mass/Vol] 1.8 mg/dL Low 1.9-2.7 [facility] Comment on above: Order Comment: No: D o not add to previous draw Performed By: #### 1 69, 60242 #### [facility] [address] [place] [address], [facility] BASIC METABOLIC PANELon Calcium [Mass/Vol] 8.4 mg/dL Low 8.6-10.[address] [facility] Comment on above: Order Comment: No: D o not add to previous draw Performed By: #### 1 0, 18552 #### [facility] [address] [place] [address], [facility] Chloride [Moles/Vol] 104 mmol/L Normal 98-107 [facility] Comment on above: Order Comment: No: D o not add to previous draw Performed By: #### 1 69, 77720 #### [facility] [address] [place] [address], [place] CO2 [Moles/Vol] 27 mmol/L Normal 21-31 [facility] Comment on above: Order Comment: No: D o not add to previous draw Performed By: #### 1 69, 49514 #### [facility] [address] [place] [address], [place] Creatinine [Mass/Vol] 0.83 mg/dL Normal 0.70-1.30 [facility] Comment on above: Order Comment: No: D o not add to previous draw Performed By: #### 1 69, 70487 #### [facility] [address] [place] [address], [place] GFR/1.73 sq M.predicted among blacks MDRD (S/P/Bld) [Vol rate/Area] mL/min/{1.73_m2} Normal >60 [facility] Comment on above: Order Comment: No: D o not add to previous draw Performed By: #### 1 69, 50430 #### [facility] [address] [place] [address], [place] GFR/1.73 sq M.predicted among non-blacks MDRD (S/P/Bld) [Vol rate/Area] mL/min/{1.73_m2} Normal >60 [facility] Comment on above: Order Comment: No: D o not add to previous draw Performed By: #### 1 69, 02880 #### [facility] [address] [place] [address], [place] Glucose [Mass/Vol] 162 mg/dL High 70-100 [facility] Comment on above: Order Comment: No: D o not add to previous draw Performed By: #### 1 69, 97208 #### [facility] [address] [place] [address], [facility] Potassium [Moles/Vol] 3.4 mmol/L Low 3.5-5.1 [facility] Comment on above: Order Comment: No: D o not add to previous draw Performed By: #### 1 0, 66176 #### [facility] [address] [place] [address], [facility] Sodium [Moles/Vol] 137 mmol/L Normal 136-[address] [facility] Comment on above: Order Comment: No: D o not add to previous draw Performed By: #### 1 0, 35541 #### [facility] [address] [place] [address], [facility] Urea nitrogen [Mass/Vol] 18 mg/dL Normal 7-25 [facility] Comment on above: Order Comment: No: D o not add to previous draw Performed By: #### 1 69, 73887 #### [facility] [address] [place] [address], [facility] CBC COMPLETE BLOOD COUNTon 0 - Erythrocyte distribution width (RBC) [Ratio] 15.2 % High 11.5-15.0 [facility] Comment on above: Order Comment: No: D o not add to previous draw Performed By: #### 0 0071 #### [facility] [address] [place] [address], [facility] Hematocrit (Bld) [Volume fraction] 40.7 % Normal 39.0-50.0 [facility] Comment on above: Order Comment: No: D o not add to previous draw Performed By: #### 0 0071 #### [facility] [address] [place] [address], [facility] Hemoglobin (Bld) [Mass/Vol] 12.7 g/dL Low 13.0-17.0 [facility] Comment on above: Order Comment: No: D o not add to previous draw Performed By: #### 0 0071 #### [facility] [address] [place] [address], [facility] MCH (RBC) [Entitic mass] 23.3 pg Low 27.0-33.0 [facility] Comment on above: Order Comment: No: D o not add to previous draw Performed By: #### 0 0071 #### [facility] [address] [place] [address], [facility] MCHC (RBC) [Mass/Vol] 31.2 g/dL Low 32.0-35.0 [facility] Comment on above: Order Comment: No: D o not add to previous draw Performed By: #### 0 0071 #### [facility] [address] [place] [address], [facility] MCV (RBC) [Entitic vol] 74.8 fL Low 82.0-98.0 [facility] Comment on above: Order Comment: No: D o not add to previous draw Performed By: #### 0 0071 #### [facility] [address] [place] [address], [facility] Nucleated RBC/100 WBC (Bld) [Ratio] 0 % Normal 0-0 [facility] Comment on above: Order Comment: No: D o not add to previous draw Performed By: #### 0 0071 #### [facility] [address] [place] [address], [facility] PLAT CNT 207 10*3/uL Normal 150-400 [facility] Comment on above: Order Comment: No: D o not add to previous draw Performed By: #### 0 0071 #### [facility] [address] [place] [address], [facility] RBC (Bld) [#/Vol] 5.44 10*6/uL Normal 4.20-5.[address] [facility] Comment on above: Order Comment: No: D o not add to previous draw Performed By: #### 0 0071 #### [facility] [address] [place] [address], [facility] WBC (Bld) [#/Vol] 3.05 10*3/uL Low 4.00-10.[address] [facility] Comment on above: Order Comment: No: D o not add to previous draw Performed By: #### 0 0071 #### [facility] [address] [place] [address], [facility] MAGNESIUM BLOODon 07-25-2020 Magnesium [Mass/Vol] 1.8 mg/dL Low 1.9-2.7 [facility] Comment on above: Order Comment: No: D o not add to previous draw Performed By: #### 1 0070, 88100 #### [facility] [address] POC GLUCOSE LABon 07-25-2020 Glucose [Mass/Vol] 155 mg/dL High 70-100 [facility] Comment on above: Performed By: #### 0 0071, 90957 #### [facility] [address] [facility]. [address] *SARS-CoV-2 COVID-19on 07-24 SARS-CoV-2 (COVID-19) RNA LILLIANA+probe Ql (Unsp spec) Not detected Normal Not Detected [facility] Comment on above: Order Comment: No: D o not add to previous draw Performed By: #### 0 0071, 67028 #### [facility] [address] [place] [place] [address], [facility] CBC W/DIFFon 07-24-2020 ABS IMM GRANS 0.0 10*3/uL Normal 0.0-0.2 The [facility] Comment on above: Performed By: #### 0 0071 #### [facility] [address] [place] [address], [facility] ABS NEUTROPHILS 2.0 10*3/uL Normal 1.6-7.6 The [facility] Comment on above: Performed By: #### 0 0071 #### [facility] [address] [place] [address], [facility] Basophils (Bld) [#/Vol] 0.0 10*3/uL Normal 0.0-0.2 [facility] Comment on above: Performed By: #### 0 0071 #### [facility] [address] [place] [address], [facility] Basophils/100 WBC (Bld) 0.4 % Normal 0.0-1.0 [facility] Comment on above: Performed By: #### 0 0071 #### [facility] [address] [place] [address], [facility] Eosinophils (Bld) [#/Vol] 0.0 10*3/uL Normal 0.0-0.5 [facility] Comment on above: Performed By: #### 0 0071 #### [facility] [address] [place] [address], [facility] Eosinophils/100 WBC (Bld) 0.7 % Normal 0.0-6.0 [facility] Comment on above: Performed By: #### 0 0071 #### [facility] [address] [place] [address], [facility] Erythrocyte distribution width (RBC) [Ratio] 15.8 % High 11.5-15.0 [facility] Comment on above: Performed By: #### 0 0071 #### [facility] [address] [place] [address], [facility] Hematocrit (Bld) [Volume fraction] 45.5 % Normal 39.0-50.0 [facility] Comment on above: Performed By: #### 0 0071 #### [facility] [address] [place] [address], [facility] Hemoglobin (Bld) [Mass/Vol] 14.4 g/dL Normal 13.0-17.0 [facility] Comment on above: Performed By: #### 0 0071 #### [facility] [address] [place] [address], [facility] IMMATURE GRANS 0.4 % Normal 0.0-1.0 [facility] Comment on above: Performed By: #### 0 0071 #### [facility] [address] [place] [address], [facility] Lymphocytes (Bld) [#/Vol] 0.4 10*3/uL Low 1.2-4.0 [facility] Comment on above: Performed By: #### 0 0071 #### [facility] [address] [place] [address], [facility] Lymphocytes/100 WBC (Bld) 14.5 % Low 20.0-45.0 [facility] Comment on above: Performed By: #### 0 0071 #### [facility] [address] [place] [address], [facility] MCH (RBC) [Entitic mass] 23.7 pg Low 27.0-33.0 [facility] Comment on above: Performed By: #### 0 0071 #### [facility] [address] [place] [address], [facility] MCHC (RBC) [Mass/Vol] 31.6 g/dL Low 32.0-35.0 [facility] Comment on above: Performed By: #### 0 0071 #### [facility] [address] [place] [address], [facility] MCV (RBC) [Entitic vol] 75.0 fL Low 82.0-98.0 [facility] Comment on above: Performed By: #### 0 0071 #### [facility] [address] [place] [address], [facility] Monocytes (Bld) [#/Vol] 0.3 10*3/uL Normal 0.1-1.0 [facility] Comment on above: Performed By: #### 0 0071 #### [facility] [address] [place] [address], [facility] MONOS 12.3 % High 5.0-12.0 [facility] Comment on above: Performed By: #### 0 0071 #### [facility] [address] [place] [address], [facility] Neutrophils/100 WBC (Bld) 71.7 % Normal 40.0-72.0 [facility] Comment on above: Performed By: #### 0 0071 #### [facility] [address] [facility] [place] [address], [facility] Nucleated RBC/100 WBC (Bld) [Ratio] 0 % Normal 0-0 [facility] Comment on above: Performed By: #### 0 0071 #### [facility] [address] [place] [place] [address], [facility] PLAT CNT 225 10*3/uL Normal 150-400 [facility] Comment on above: Performed By: #### 0 0071 #### [facility] [address] [place] [address], [facility] RBC (Bld) [#/Vol] 6.07 10*6/uL High 4.20-5.[address] [facility] Comment on above: Performed By: #### 0 0071 #### [facility] [address] [place] [place] [address], [facility] WBC (Bld) [#/Vol] 2.76 10*3/uL Low 4.00-10.[address] [facility] Comment on above: Performed By: #### 0 0071 #### [facility] [address] [place] [address], [facility] COMP METABOLIC PANELon 07-24 Albumin [Mass/Vol] 3.7 g/dL Normal 3.5-5.[address] [facility] Comment on above: Performed By: #### 3 5200, 55138, 03618 #### [facility] [address] [place] [address], [place] ALKALINE PHOSPH 58 IU/L Normal 34-104 [facility] Comment on above: Performed By: #### 3 5200, 21030, 71271 #### [facility] [address] [place] [address], [place] ALT [Catalytic activity/Vol] 12 U/L Normal 7-52 [facility] Comment on above: Performed By: #### 3 5200, 81709, 10077 #### [facility] [address] [place] [address], [place] AST [Catalytic activity/Vol] 15 U/L Normal 13-39 [facility] Comment on above: Performed By: #### 3 5200, 85245, 86601 #### [facility] [address] [place] [address], [place] Bilirubin [Mass/Vol] 1.3 mg/dL High 0.3-1.0 [facility] Comment on above: Performed By: #### 3 5200, 32822, 97400 #### [facility] [address] [place] [address], [place] Calcium [Mass/Vol] 8.7 mg/dL Normal 8.6-10.3 [facility] Comment on above: Performed By: #### 3 5200, 04792, 57964 #### [facility] [address] [place] [address], [place] Chloride [Moles/Vol] 99 mmol/L Normal 98-107 [facility] Comment on above: Performed By: #### 3 5200, 78197, 20257 #### [facility] [address] [place] [address], [place] CO2 [Moles/Vol] 25 mmol/L Normal 21-31 [facility] Comment on above: Performed By: #### 3 5200, 92945, 37558 #### [facility] [address] [place] [address], [place] Creatinine [Mass/Vol] 1.01 mg/dL Normal 0.70-1.30 [facility] Comment on above: Performed By: #### 3 5200, 38302, 54831 #### [facility] [address] [place] [address], [place] GFR/1.73 sq M.predicted among blacks MDRD (S/P/Bld) [Vol rate/Area] mL/min/{1.73_m2} Normal >60 [facility] Comment on above: Performed By: #### 3 5200, 83166, 27291 #### [facility] [address] [place] [address], [place] GFR/1.73 sq M.predicted among non-blacks MDRD (S/P/Bld) [Vol rate/Area] mL/min/{1.73_m2} Normal >60 [facility] Comment on above: Performed By: #### 3 5200, 56150, 94272 #### [facility] [address] [place] [address], [place] Glucose [Mass/Vol] 142 mg/dL High 70-[address] [facility] Comment on above: Performed By: #### 3 5200, 88300, 73319 #### [facility] [address] [place] [address], [place] Potassium [Moles/Vol] 3.9 mmol/L Normal 3.5-5.1 [facility] Comment on above: Performed By: #### 3 5200, 82499, 18281 #### [facility] [address] [place] [address], [place] Protein [Mass/Vol] 6.6 g/dL Normal 6.0-8.[address] [facility] Comment on above: Performed By: #### 3 5200, 15789, 20598 #### [facility] [address] [facility] [place] [address], [facility] Sodium [Moles/Vol] 134 mmol/L Low 136-145 [facility] Comment on above: Performed By: #### 3 5200, 05838, 90431 #### [facility] [address] [place] [address], [facility] Urea nitrogen [Mass/Vol] 20 mg/dL Normal 7-25 [facility] Comment on above: Performed By: #### 3 5200, 00065, 67148 #### [facility] [address] [place] [address], [facility] CT ABDOMEN AND PELVIS W IV C ONTRASTon 07-24-2020 CT ABDOMEN AND PELVIS W IV CONTRAST [facility] Department of Radiology [address] [place] [id number] Patient Name: NOÉ JEFFERY : 1965 Sex: M Age: Race: Other Pt. Location: [facility] Patient Status: E Ordered Date: 07/24/2020 3:15:00 PM Completed Date: 07/24/2020 03:58 PM Requesting Provider: STEFF ELDER Attending Provider: MARIBELL DIAZ Report Copy To: Signs & Symptoms: Abdominal Pain(specify) History: See Comments Comments: Other, recent hernia surg, no BM, n/v Exam: CT ABDOMEN AND PELVIS W IV CONTRAST CLINICAL INFORMATION: Recent surgery, abdominal pain. COMPARISON: 04/19/2020. PROCEDURE: Routine CT abdomen and pelvis obtained after the uncomplicated intravenous administration of contrast material. Delayed imaging obtained of the kidneys and bladder. Multiplanar reformats obtained from the axial data. Automated exposure control was utilized. CONTRAST: Contrast: OMNIPAQUE 350 (LOCM), 100 milliliter, Intravenous. FINDINGS: LUNG BASES: Bibasilar atelectasis. Patient has a history of recent surgery and there is extensive free air in the abdomen and pelvis. There is edema and stranding noted in the subcutaneous tissues as well as soft tissue gas possibly related to prior laparoscopic procedure. Midline abdominal surgery with thin fluid collection possibly seroma and thickening of the anterior peritoneum versus mesh placement. There is minimal intraperitoneal fluid noted. LIVER AND GALLBLADDER: No liver abnormalities or biliary dilatation. The gallbladder is normal. SPLEEN: Normal. PANCREAS: Normal. Mild fatty replacement. ADRENAL GLANDS: Normal. KIDNEYS: Parapelvic cysts left kidney, no follow-up required per consensus guidelines. Minimal gas noted in the bladder likely related to recent instrumentation. BOWEL: Postoperative changes with surgical anastomosis in the region of the sigmoid colon. Wall thickening in the distal esophagus which could relate to infectious or inflammatory etiologies however endoscopy may be helpful in further assessment. There is marked dilatation of loops of proximal small bowel measuring up to at least 5.8 cm with air-fluid levels. There is a transition point in the left lower abdomen with decompressed loops of distal small bowel noted. There is mild wall thickening involving loops of small bowel in the left lower quadrant. AORTA: Atherosclerotic calcifications are noted. No aneurysm. LYMPH NODES: No enlarged lymph nodes. PELVIS: Free fluid in the abdomen and pelvis. There are some mesenteric edema and stranding likely related to recent surgery. OSSEOUS STRUCTURES: Degenerative changes of the lumbosacral spine. IMPRESSION: 1. Dilated loops of small bowel with air-fluid levels concerning for small bowel obstruction with possible transition point in the left lower quadrant. There is some wall thickening involving loops of small bowel which could relate to infectious, inflammatory, or ischemic etiologies. 2. Extensive postsurgical changes consistent with recent hernia repair per clinical notes with free air and intraperitoneal/pelv ic fluid. Perforated viscus would be difficult to exclude in this situation. Thin seroma deep to the anterior abdominal wall surgical region. 3. Please see above for further details and additional follow-up recommendations. All CT scans at this facility use dose modulation, iterative reconstruction, and/or weight based dosing when appropriate to reduce radiation dose to as low as reasonably achievable. Electronically signed: Miguelito Balderas. Transcribed by: [email or web address], User Resident: Electronically Signed by: MIGUELITO BALDERAS @ 07/24/2020 04:14 PM Normal [facility] Comment on above: Order Comment: No: D o not add to previous draw LACTATE BLOODon 07-24-2020 Lactate [Moles/Vol] 1.0 mmol/L Normal 0.5-2.2 [facility] Comment on above: Performed By: #### 1 0054 #### [address] LIPASE BLOODon 07-24-2020 LIPASE 7 Units/L Low 11-82 [facility] Comment on above: Performed By: #### 3 5200, 26924, 37021 #### [facility] [address] PORTABLE CHEST 1 VIEWon PORTABLE CHEST 1 VIEW [facility] Department of Radiology [address] [place], [place] [id number] Patient Name: NOÉ JEFFERY : 1965 Sex: M Age: Race: Other Pt. Location: [facility] Patient Status: E Ordered Date: 07/24/2020 3:15:00 PM Completed Date: 07/24/2020 03:51 PM Requesting Provider: STEFF ELDER Attending Provider: MARIBELL DIAZ Report Copy To: Signs & Symptoms: Shortness of Breath History: Comments: Evaluate for Aspiration, recent surg, now has cough Exam: PORTABLE CHEST 1 VIEW CLINICAL INFORMATION: Shortness of Breath. Evaluate for Aspiration, recent surg, now has cough. . COMPARISON: None. VIEWS: 1. IMPRESSION: 1. Mild vascular congestion with low lung volumes and small effusions. Mild cardiomegaly. 2. Incidental note of dilatation of multiple loops of bowel in the upper abdomen. Dedicated abdominal imaging could be performed as indicated. Electronically signed: Miguelito Balderas. Transcribed by: [email or web address], User Resident: Electronically Signed by: MIGUELITO BALDERAS @ 07/24/2020 03:58 PM Normal [facility] Comment on above: Order Comment: No: D o not add to previous draw TROPONIN-Ion 07-24-2020 Troponin I.cardiac [Mass/Vol] 0.00 ng/mL Normal 0.00-0.04 [facility] Comment on above: Result Comment: REFE RENCE RANGES: 0.00 - 0.14 ng/ml NEGATIVE 0.15 - 0.25 ng/ml INDETERMINATE > 0.25 ng/ml INDICATIVE OF AN M.I. Performed By: #### 3 5200, 39727, 06566 #### [facility] [address] [facility] [place] [address], [facility] URINALYSIS REFLEXon 07-24-19 21 Appearance (U) CLEAR Normal CLEAR [facility] Comment on above: Order Comment: No: D o not add to previous draw Performed By: #### 0 0071, 65304 #### [facility] [address] [place] [address], [facility] Bilirubin Ql (U) Negative Normal NEGATIVE [facility] Comment on above: Order Comment: No: D o not add to previous draw Performed By: #### 0 0071, 73881 #### [facility] [address] [place] [address], [place] Color (U) ANEL Abnormal YELLOW [facility] Comment on above: Order Comment: No: D o not add to previous draw Performed By: #### 0 0071, 13241 #### [facility] [address] [place] [address], [place] Glucose Ql (U) Negative Normal NEGATIVE [facility] Comment on above: Order Comment: No: D o not add to previous draw Performed By: #### 0 0071, 13429 #### [facility] [address] [place] [address], [place] Hemoglobin Ql (U) Negative Normal NEGATIVE [facility] Comment on above: Order Comment: No: D o not add to previous draw Performed By: #### 0 0071, 73783 #### [facility] [address] [place] [address], [place] KETONE 20 mg/dL Abnormal NEGATIVE [facility] Comment on above: Order Comment: No: D o not add to previous draw Performed By: #### 0 0071, 84041 #### [facility] [address] [place] [address], [place] LEUK DINO Negative Normal NEGATIVE [facility] Comment on above: Order Comment: No: D o not add to previous draw Performed By: #### 0 0071, 57392 #### [facility] [address] [place] [address], [place] MICRO NOT DONE Normal [facility] Comment on above: Order Comment: No: D o not add to previous draw Result Comment: Micr oscopics not performed on urines with negative chemical reactions unless requested in original order Performed By: #### 0 0071, 35368 #### [facility] [address] [place] [address], [place] Nitrite Ql (U) Negative Normal NEGATIVE [facility] Comment on above: Order Comment: No: D o not add to previous draw Performed By: #### 0 0071, 12088 #### [facility] [address] [place] [address], [facility] pH (U) 5.0 [pH] Normal 5.0-8.0 [facility] Comment on above: Order Comment: No: D o not add to previous draw Performed By: #### 0 0071, 19248 #### [facility] [address] [place] [address], [place] Protein Ql (U) Negative Normal NEGATIVE [facility] Comment on above: Order Comment: No: D o not add to previous draw Performed By: #### 0 0071, 22817 #### [facility] [address] [place] [address], [place] SPEC GRAV 1.084 High 1.015-1.020 [facility] Comment on above: Order Comment: No: D o not add to previous draw Result Comment: DONE BY DILUTION Performed By: #### 0 0071, 97159 #### [facility] [address] [place] [address], [facility] BASIC METABOLIC PANELon 02-0 Calcium [Mass/Vol] 8.8 mg/dL Normal 8.6-10.3 [facility] Comment on above: Order Comment: No: D o not add to previous draw Performed By: #### 0 0071, 43630 #### [facility] [address] [place] [address], [place] Chloride [Moles/Vol] 103 mmol/L Normal 98-107 [facility] Comment on above: Order Comment: No: D o not add to previous draw Performed By: #### 0 0071, 95833 #### [facility] [address] [place] [address], [place] CO2 [Moles/Vol] 27 mmol/L Normal 21-31 [facility] Comment on above: Order Comment: No: D o not add to previous draw Performed By: #### 0 0071, 23374 #### [facility] [address] [place] [address], [facility] Creatinine [Mass/Vol] 0.87 mg/dL Normal 0.70-1.30 [facility] Comment on above: Order Comment: No: D o not add to previous draw Performed By: #### 0 0071, 79904 #### [facility] [address] [place] [address], [facility] GFR/1.73 sq M.predicted among blacks MDRD (S/P/Bld) [Vol rate/Area] mL/min/{1.73_m2} Normal >60 [facility] Comment on above: Order Comment: No: D o not add to previous draw Performed By: #### 0 0071, 60293 #### [facility] [address] [place] [address], [facility] GFR/1.73 sq M.predicted among non-blacks MDRD (S/P/Bld) [Vol rate/Area] mL/min/{1.73_m2} Normal >60 [facility] Comment on above: Order Comment: No: D o not add to previous draw Performed By: #### 0 0071, 68199 #### [facility] [address] [place] [address], [facility] Glucose [Mass/Vol] 156 mg/dL High 70-100 [facility] Comment on above: Order Comment: No: D o not add to previous draw Performed By: #### 0 0071, 00834 #### [facility] [address] [place] [address], [facility] Potassium [Moles/Vol] 3.9 mmol/L Normal 3.5-5.1 [facility] Comment on above: Order Comment: No: D o not add to previous draw Performed By: #### 0 0071, 85735 #### [facility] [address] [place] [address], [facility] Sodium [Moles/Vol] 136 mmol/L Normal 136-[address] [facility] Comment on above: Order Comment: No: D o not add to previous draw Performed By: #### 0 0071, 60380 #### [facility] [address] [place] [address], [facility] Urea nitrogen [Mass/Vol] 8 mg/dL Normal 7-25 [facility] Comment on above: Order Comment: No: D o not add to previous draw Performed By: #### 0 0071, 29211 #### [facility] [address] [place] [address], [facility] CBC COMPLETE BLOOD COUNTon 0 07-23-2020 Erythrocyte distribution width (RBC) [Ratio] 15.1 % High 11.5-15.0 [facility] Comment on above: Order Comment: No: D o not add to previous draw Performed By: #### 0 0071 #### [facility] [address] [place] [address], [facility] Hematocrit (Bld) [Volume fraction] 44.1 % Normal 39.0-50.0 [facility] Comment on above: Order Comment: No: D o not add to previous draw Performed By: #### 0 0071 #### [facility] [address] [place] [address], [facility] Hemoglobin (Bld) [Mass/Vol] 13.4 g/dL Normal 13.0-17.0 [facility] Comment on above: Order Comment: No: D o not add to previous draw Performed By: #### 0 0071 #### [facility] [address] [place] [address], [facility] MCH (RBC) [Entitic mass] 23.1 pg Low 27.0-33.0 [facility] Comment on above: Order Comment: No: D o not add to previous draw Performed By: #### 0 0071 #### [facility] [address] [place] [address], [facility] MCHC (RBC) [Mass/Vol] 30.4 g/dL Low 32.0-35.0 [facility] Comment on above: Order Comment: No: D o not add to previous draw Performed By: #### 0 0071 #### [facility] [address] [place] [address], [facility] MCV (RBC) [Entitic vol] 76.0 fL Low 82.0-98.0 [facility] Comment on above: Order Comment: No: D o not add to previous draw Performed By: #### 0 0071 #### [facility] [address] [facility] [place] [address], [facility] Nucleated RBC/100 WBC (Bld) [Ratio] 0 % Normal 0-0 [facility] Comment on above: Order Comment: No: D o not add to previous draw Performed By: #### 0 0071 #### [facility] [address] [place] [address], [facility] PLAT CNT 190 10*3/uL Normal 150-400 [facility] Comment on above: Order Comment: No: D o not add to previous draw Performed By: #### 0 0071 #### [facility] [address] [place] [address], [facility] RBC (Bld) [#/Vol] 5.80 10*6/uL High 4.20-5.[address] [facility] Comment on above: Order Comment: No: D o not add to previous draw Performed By: #### 0 0071 #### [facility] [address] [place] [address], [facility] WBC (Bld) [#/Vol] 7.98 10*3/uL Normal 4.00-10.[address] [facility] Comment on above: Order Comment: No: D o not add to previous draw Performed By: #### 0 0071 #### [facility] [address] [place] [address], [place] MAGNESIUM BLOODon 07-23-2020 Magnesium [Mass/Vol] 1.9 mg/dL Normal 1.9-2.7 [facility] Comment on above: Order Comment: No: D o not add to previous draw Performed By: #### 0 0071, 71071 #### [facility] [address] [place] [address], [place] POC GLUCOSE LABon 07-23-2020 Glucose [Mass/Vol] 140 mg/dL High 70-[address] [facility] Comment on above: Performed By: #### 0 0071 #### [facility] [address] [place] [address], [place] Glucose [Mass/Vol] 155 mg/dL High 70-[address] [facility] Comment on above: Performed By: #### 0 0071, 72078 #### [facility] [address] [place] [address], [place] Glucose [Mass/Vol] 164 mg/dL High 70-[address] [facility] Comment on above: Performed By: #### 0 0071 #### [facility] [address] [place] [address], [place] BASIC METABOLIC PANELon Calcium [Mass/Vol] 8.3 mg/dL Low 8.6-10.[address] [facility] Comment on above: Order Comment: No: D o not add to previous draw Performed By: #### 0 0071, 13467 #### [facility] [address] [place] [address], [place] Chloride [Moles/Vol] 103 mmol/L Normal 98-107 [facility] Comment on above: Order Comment: No: D o not add to previous draw Performed By: #### 0 0071, 08140 #### [facility] [address] [place] [address], [facility] CO2 [Moles/Vol] 26 mmol/L Normal 21-31 [facility] Comment on above: Order Comment: No: D o not add to previous draw Performed By: #### 0 0071, 37372 #### [facility] [address] [place] [address], [place] Creatinine [Mass/Vol] 0.90 mg/dL Normal 0.70-1.30 [facility] Comment on above: Order Comment: No: D o not add to previous draw Performed By: #### 0 0071, 51124 #### [facility] [address] [place] [address], [place] GFR/1.73 sq M.predicted among blacks MDRD (S/P/Bld) [Vol rate/Area] mL/min/{1.73_m2} Normal >60 [facility] Comment on above: Order Comment: No: D o not add to previous draw Performed By: #### 0 0071, 76670 #### [facility] [address] [place] [address], [place] GFR/1.73 sq M.predicted among non-blacks MDRD (S/P/Bld) [Vol rate/Area] mL/min/{1.73_m2} Normal >60 [facility] Comment on above: Order Comment: No: D o not add to previous draw Performed By: #### 0 0071, 39420 #### [facility] [address] [place] [address], [place] Glucose [Mass/Vol] 166 mg/dL High 70-100 [facility] Comment on above: Order Comment: No: D o not add to previous draw Performed By: #### 0 0071, 26146 #### [facility] [address] [place] [address], [place] Potassium [Moles/Vol] 4.1 mmol/L Normal 3.5-5.1 [facility] Comment on above: Order Comment: No: D o not add to previous draw Performed By: #### 0 0071, 89123 #### [facility] [address] [place] [address], [place] Sodium [Moles/Vol] 136 mmol/L Normal 136-[address] [facility] Comment on above: Order Comment: No: D o not add to previous draw Performed By: #### 0 0071, 76618 #### [facility] [address] [place] [address], [facility] Urea nitrogen [Mass/Vol] 12 mg/dL Normal 7-25 [facility] Comment on above: Order Comment: No: D o not add to previous draw Performed By: #### 0 0071, 52829 #### [facility] [address] [place] [address], [facility] CBC COMPLETE BLOOD COUNTon - Erythrocyte distribution width (RBC) [Ratio] 14.9 % Normal 11.5-15.0 [facility] Comment on above: Order Comment: No: D o not add to previous draw Performed By: #### 0 0071, 18681 #### [facility] [address] [place] [address], [facility] Hematocrit (Bld) [Volume fraction] 42.8 % Normal 39.0-50.0 [facility] Comment on above: Order Comment: No: D o not add to previous draw Performed By: #### 0 0071, 14689 #### [facility] [address] [place] [address], [place] Hemoglobin (Bld) [Mass/Vol] 13.3 g/dL Normal 13.0-17.0 [facility] Comment on above: Order Comment: No: D o not add to previous draw Performed By: #### 0 0071, 79224 #### [facility] [address] [place] [address], [place] MCH (RBC) [Entitic mass] 23.4 pg Low 27.0-33.0 [facility] Comment on above: Order Comment: No: D o not add to previous draw Performed By: #### 0 0071, 29802 #### [facility] [address] [place] [address], [facility] MCHC (RBC) [Mass/Vol] 31.1 g/dL Low 32.0-35.0 [facility] Comment on above: Order Comment: No: D o not add to previous draw Performed By: #### 0 0071, 20380 #### [facility] [address] [place] [address], [facility] MCV (RBC) [Entitic vol] 75.2 fL Low 82.0-98.0 [facility] Comment on above: Order Comment: No: D o not add to previous draw Performed By: #### 0 0071, 53898 #### [facility] [address] [facility] [address] Nucleated RBC/100 WBC (Bld) [Ratio] 0 % Normal 0-0 [facility] Comment on above: Order Comment: No: D o not add to previous draw Performed By: #### 0 0071, 96353 #### [facility] [address] [facility] [place] [address], [facility] PLAT CNT 211 10*3/uL Normal 150-400 [facility] Comment on above: Order Comment: No: D o not add to previous draw Performed By: #### 0 0071, 75729 #### [facility] [address] [place] [address], [facility] RBC (Bld) [#/Vol] 5.69 10*6/uL Normal 4.20-5.[address] [facility] Comment on above: Order Comment: No: D o not add to previous draw Performed By: #### 0 0071, 60902 #### [facility] [address] [place] [address], [facility] WBC (Bld) [#/Vol] 8.55 10*3/uL Normal 4.00-10.[address] [facility] Comment on above: Order Comment: No: D o not add to previous draw Performed By: #### 0 0071, 60458 #### [facility] [address] MAGNESIUM BLOODon 07-22-2020 Magnesium [Mass/Vol] 2.0 mg/dL Normal 1.9-2.7 [facility] Comment on above: Order Comment: No: D o not add to previous draw Performed By: #### 0 0071, 23648 #### [facility] [address] Operative Reporton Operative Report MR#: [id number] I [facility] Pt. Name: Noé Jeffery Room #: 4CD [id number] Discharge Date: Birthdate: 1965 OPERATIVE REPORT DATE OF SURGERY: 07/21/2020 SURGEON: Naya Izaguirre M.D. PREOPERATIVE DIAGNOSES: Large ventral hernia. POSTOPERATIVE DIAGNOSIS: Large ventral hernia. OPERATION PERFORMED: Da Lorena extensive lysis of adhesion, ventral hernia repair with Parietex mesh 25 cm x 20 cm. ANESTHESIA: General endotracheal anesthesia. INDICATION: The patient is a 55-year-old white male with previous Darren procedure and colostomy reversal. He developed a large ventral hernia with extensive adhesion. Da Lorena ventral hernia repair with mesh was offered to the patient. Informed consent was obtained. SURGERY: The patient was brought to the operating room, laid on the operating table in the supine position. General anesthesia was initiated. Abdomen was prepped and draped in the usual sterile fashion. The skin was covered by the Ioban. A left subcostal 5 mm Optiview trocar was inserted under direct visualization. CO2 insufflation was started under direct visualization. Right flank 8 mm trocar was inserted. In the 8 cm apart, three 8 mm trocars were inserted on the right flank for the da Lorena access. The 5 mm trocar on the right subcostal was switched to 12 mm trocar. Da Lorena Xi was docked. The right mid abdomen trocar with 30 up camera, but right lower quadrant trocar with monopolar scissors and right up quadrant trocar with bipolar grasper. The extensive lysis of adhesion was performed. The patient had significant small bowel and omentum adhesion to the anterior abdominal wall multiple ventral hernias, able to complete lysis of adhesion and remove all the adhesions away and reduced all the herniated small bowel loops. After completion of the lysis of adhesions, the da Lorena Xi was undocked. The surgery was continued with the laparoscopy. The midline fascia defect was measured, which is 15 cm x 10 cm in size. The midline fascia was approximated with #2 Ethibond interrupted sutures, which were placed by Eliu-Irvin needle. After midline fascia was approximated 25 x 26 cm, Parietex compensated mesh was obtained and rinsed by bacitracin gentamicin solution. The 1-0 Tycron sutures were placed on center and 4 quadrant on the polyester side. The mesh was inserted through the 12 mm trocar site into peritoneal cavity. The 5 sutures were brought out through the anterior abdominal wall with the Eliu-Irvin needle to fix the mesh in the anterior abdominal wall. The edge of the mesh was tacked to the fascia with AbsorbaTack. Four AbsorbaTack were used to complete the tacking. After that, 4 quadrant #2 Ethibond transfascial suture was placed with a Eliu-Irvin needle to further secure the mesh to the fascia. Then, on the careful inspection, no active bleeding, no bowel injury. CO2 was desufflated. All the trocars were removed. The left subcostal 12 mm trocar site fascia was closed by 0 Vicryl interrupted suture, which was placed by the Eliu-Irvin needle. The skin was closed by 4-0 Vicryl subcuticular suture. Surgical glue was applied to all the trocar sites and the needle insertion site. Abdominal binder was applied. Operation was completed without complication. I was present during the entire procedure. Electronically Signed by: Naya Izaguirre M.D. 07/22/2020 04:51 P Naya Izaguirre M.D. Date Dict: 07/21/2020/03:45 P/Naya Izaguirre M.D. Date Trans: 07/21/2020 10:04 P/mmo [id number] cc: Paul Lopez M.D. [address] [place] [address] [place] [facility] POC GLUCOSE LABon 07-22-2020 Glucose [Mass/Vol] 142 mg/dL High 70-[address] [facility] Comment on above: Performed By: #### 0 0071, [id number] #### [facility] [address] [place] [address], [place] Glucose [Mass/Vol] 113 mg/dL High 70-[address] [facility] Comment on above: Performed By: #### 0 0071, [id number] #### [facility] [address] [place] [address], [place] Glucose [Mass/Vol] 153 mg/dL High 70-[address] [facility] Comment on above: Performed By: #### 0 0071, [id number] #### [facility] [address] [place] [address], [place] Glucose [Mass/Vol] 127 mg/dL High 70-[address] [facility] Comment on above: Performed By: #### 0 0071, [id number] #### [facility] [address] [place] [address], [place] Glucose [Mass/Vol] 176 mg/dL High 70-[address] [facility] Comment on above: Performed By: #### 0 0071 #### [facility] [address] [place] [address], [place] *MRSA/MSSA DNA NASALon 07-21 *MRSA/MSSA DNA NASAL Clinical Report: (D ) Specimen: NASAL SWAB Collected: 07/21/2020 00:00 Status: Final Last Updated: 07/21/2020 15:28 (1) No collection time noted on specimen or requisition. The collection time recorded is the time of receipt in the lab. MSSA DNA (Final) Methicillin Susceptible Staphylococcus aureus DNA Detected MRSA DNA (Final) Negative Normal [facility] Comment on above: Order Comment: No: D o not add to previous draw Performed By: #### 0 0071, [id number] #### [facility] [address] [place] [address], [facility] POC GLUCOSE LABon 07-21-2020 Glucose [Mass/Vol] 168 mg/dL High 70-[address] [facility] Comment on above: Performed By: #### 0 0071 #### [facility] [address] [place] [address], [place] Glucose [Mass/Vol] 211 mg/dL High 70-[address] [facility] Comment on above: Performed By: #### 0 0071, [id number] #### [facility] [address] [place] [address], [facility] Glucose [Mass/Vol] 117 mg/dL High 70-[address] [facility] Comment on above: Performed By: #### 0 0071, [id number] #### [facility] [address] [place] [address], [facility] *SARS-CoV-2 COVID-19on 07-18 SARS-CoV-2 (COVID-19) RNA LILLIANA+probe Ql (Unsp spec) Not detected Normal Not Detected [facility] Comment on above: Order Comment: No: D o not add to previous draw Performed By: #### 0 0071, [id number] #### [facility] [address] [place] [address], [facility] BASIC METABOLIC PANELon 06-21 Calcium [Mass/Vol] 9.2 mg/dL Normal 8.6-10.[address] [facility] Comment on above: Performed By: #### 0 0071 #### [facility] [address] [place] [address], [place] Chloride [Moles/Vol] 100 mmol/L Normal 98-107 [facility] Comment on above: Performed By: #### 0 0071 #### [facility] [address] [place] [address], [facility] CO2 [Moles/Vol] 30 mmol/L Normal 21-31 [facility] Comment on above: Performed By: #### 0 0071 #### [facility] [address] [place] [address], [facility] Creatinine [Mass/Vol] 1.01 mg/dL Normal 0.70-1.30 [facility] Comment on above: Performed By: #### 0 0071 #### [facility] [address] [place] [address], [facility] GFR/1.73 sq M.predicted among blacks MDRD (S/P/Bld) [Vol rate/Area] mL/min/{1.73_m2} Normal >60 [facility] Comment on above: Performed By: #### 0 0071 #### [facility] [address] [address], [facility] GFR/1.73 sq M.predicted among non-blacks MDRD (S/P/Bld) [Vol rate/Area] mL/min/{1.73_m2} Normal >60 [facility] Comment on above: Performed By: #### 0 0071 #### [facility] [address] [place] [address], [facility] Glucose [Mass/Vol] 121 mg/dL High 70-100 [facility] Comment on above: Performed By: #### 0 0071 #### [facility] [address] [place] [address], [facility] Potassium [Moles/Vol] 4.4 mmol/L Normal 3.5-5.1 [facility] Comment on above: Performed By: #### 0 0071 #### [facility] [address] Sodium [Moles/Vol] 135 mmol/L Low 136-[address] [facility] Comment on above: Performed By: #### 0 0071 #### [facility] [address] Urea nitrogen [Mass/Vol] 14 mg/dL Normal 7-25 [facility] Comment on above: Performed By: #### 0 0071 #### [facility] [address] CBC W/DIFFon 07-18-2020 ABS IMM GRANS 0.0 10*3/uL Normal 0.0-0.2 [facility] Comment on above: Performed By: #### 0 0071 #### [facility] [address] ABS NEUTROPHILS 2.5 10*3/uL Normal 1.6-7.6 The [facility] Comment on above: Performed By: #### 0 0071 #### [facility] [address] [place] [address], [facility] Basophils (Bld) [#/Vol] 0.0 10*3/uL Normal 0.0-0.2 [facility] Comment on above: Performed By: #### 0 0071 #### [facility] [address] Basophils/100 WBC (Bld) 0.9 % Normal 0.0-1.0 [facility] Comment on above: Performed By: #### 0 0071 #### [facility] [address] [place] [address], [facility] Eosinophils (Bld) [#/Vol] 0.1 10*3/uL Normal 0.0-0.5 [facility] Comment on above: Performed By: #### 0 0071 #### [facility] [address] [place] [address], [facility] Eosinophils/100 WBC (Bld) 1.2 % Normal 0.0-6.0 [facility] Comment on above: Performed By: #### 0 0071 #### [facility] [address] [place] [address], [facility] Erythrocyte distribution width (RBC) [Ratio] 14.8 % Normal 11.5-15.0 [facility] Comment on above: Performed By: #### 0 0071 #### [facility] [address] [place] [address], [facility] Hematocrit (Bld) [Volume fraction] 47.6 % Normal 39.0-50.0 [facility] Comment on above: Performed By: #### 0 0071 #### [facility] [address] [place] [address], [facility] Hemoglobin (Bld) [Mass/Vol] 14.5 g/dL Normal 13.0-17.0 [facility] Comment on above: Performed By: #### 0 0071 #### [facility] [address] [facility] [place] [address], [facility] IMMATURE GRANS 0.2 % Normal 0.0-1.0 The [facility] Comment on above: Performed By: #### 0 0071 #### [facility] [address] [place] [address], [facility] Lymphocytes (Bld) [#/Vol] 1.4 10*3/uL Normal 1.2-4.0 [facility] Comment on above: Performed By: #### 0 0071 #### [facility] [address] [place] [address], [facility] Lymphocytes/100 WBC (Bld) 32.9 % Normal 20.0-45.0 [facility] Comment on above: Performed By: #### 0 0071 #### [facility] [address] MCH (RBC) [Entitic mass] 23.2 pg Low 27.0-33.0 [facility] Comment on above: Performed By: #### 0 0071 #### [facility] [address] MCHC (RBC) [Mass/Vol] 30.5 g/dL Low 32.0-35.0 [facility] Comment on above: Performed By: #### 0 0071 #### [facility] [address] MCV (RBC) [Entitic vol] 76.0 fL Low 82.0-98.0 [facility] Comment on above: Performed By: #### 0 0071 #### [facility] [address] Monocytes (Bld) [#/Vol] 0.3 10*3/uL Normal 0.1-1.0 [facility] Comment on above: Performed By: #### 0 0071 #### [facility] [address] MONOS 7.5 % Normal 5.0-12.0 [facility] Comment on above: Performed By: #### 0 0071 #### [facility] [address] Neutrophils/100 WBC (Bld) 57.3 % Normal 40.0-72.0 [facility] Comment on above: Performed By: #### 0 0071 #### [facility] [address] Nucleated RBC/100 WBC (Bld) [Ratio] 0 % Normal 0-0 [facility] Comment on above: Performed By: #### 0 0071 #### [facility] [address] [place] [address], [facility] PLAT CNT 222 10*3/uL Normal 150-400 [facility] Comment on above: Performed By: #### 0 0071 #### [facility] [address] RBC (Bld) [#/Vol] 6.26 10*6/uL High 4.20-5.[address] [facility] Comment on above: Performed By: #### 0 0071 #### [facility] [address] WBC (Bld) [#/Vol] 4.28 10*3/uL Normal 4.00-10.[address] [facility] Comment on above: Performed By: #### 0 0071 #### [facility] [address] PROTHROMBIN TIMEon 1 INR Coag (PPP) [Relative time] 0.95 {INR} Normal 0.91-1.16 [facility] Comment on above: Result Comment: ACCC P RECOMMENDED INR FOR WARFARIN THERAPY ------- ------- CONDITION INR PROPHYLAXIS OF VENOUS THROMBOSIS 2-3 (HIGH-RISK SURGERY) TREATMENT OF VENOUS THROMBOSIS 2-3 TREATMENT OF PULMONARY EMBOLISM 2-3 PREVENTION OF SYSTEMIC EMBOLISM: 2-3 ACUTE MYOCARDIAL INFARCTION TISSUE HEART VALVES VALVULAR HEART DISEASE ATRIAL FIBRILLATION RECURRENT SYSTEMIC EMBOLISM MECHANICAL HEART VALVE 2.5-3.5 FROM: ORAL ANTICOAGULANTS. MECHANISM OF ACTION, CLINICAL EFFECTIVENESS, AND OPTIMAL THERAPEUTIC RANGE. CHEST 1995;108:231S-246S. Performed By: #### 0 0071, [id number] #### [facility] [address] [place] [address], [facility] PT Coag (PPP) [Time] 12.7 s Normal 12.3-14.8 [facility] Comment on above: Result Comment: ALL RESULTS MUST BE INTERPRETED WITH RESPECT TO BLOOD DRAWING ARTIFACT OR DILUTION ERROR OF ANTICOAGULANT AT THE TIME OF SAMPLING. Performed By: #### 0 007, [id number] #### [facility] [address] [place] [address], [facility] Vital Signs Date Time Vital Sign Value Performing Clinician Tito winter 10-12-2022 12:01-0400 Diastolic blood pressure 74 mm[Hg] Miguelito Chicas APRN.FIRE MANAGEMENT SPECIALIST Work Phone: [facility] 10-12-2022 12:01-0400 Heart rate 58 /min Miguelito Chicas APRN.CNP Work Phone: [facility] 10-12-2022 12:01-0400 Systolic blood pressure 117 mm[Hg] Miguelito Chicas APRN.FIRE MANAGEMENT SPECIALIST Work Phone: [facility] 04-30-2022 10:56-0500 Body weight 86.23 kg Gera Cardona DO Work Phone: [facility] 04-30-2022 10:56-0500 Diastolic blood pressure 91 mm[Hg] Gera Cardona DO Work Phone: [facility] 04-30-2022 10:56-0500 Heart rate 82 /min Gera Cardona DO Work Phone: [facility] 04-30-2022 10:56-0500 SaO2% (BldA) [Mass fraction] 97 % Gera Cardona DO Work Phone: [facility] 04-30-2022 10:56-0500 Systolic blood pressure 139 mm[Hg] Gera Cardona DO Work Phone: [facility] 04-26-2022 03:51-0500 Body height 165.1 cm Roosevelt Merlos MD Work Phone: [facility] 04-26-2022 03:51-0500 Body weight 83.6 kg Roosevelt Merlos MD Work Phone: [facility] 04-22-2022 16:41-0400 Diastolic blood pressure 100 mm[Hg] Brenda Francis CUSHION WORKER.FIRE MANAGEMENT SPECIALIST Work Phone: [facility] 04-22-2022 16:41-0400 Systolic blood pressure 156 mm[Hg] Brenda Francis CUSHION WORKER.FIRE MANAGEMENT SPECIALIST Work Phone: [facility] 04-22-2022 16:17-0400 Body temperature 98.29 [degF] Brenda Francis CUSHION WORKER.FIRE MANAGEMENT SPECIALIST Work Phone: [facility] 04-22-2022 16:17-0400 Body weight 86.27 kg Brenda Francis CUSHION WORKER.FIRE MANAGEMENT SPECIALIST Work Phone: [facility] 04-22-2022 16:17-0400 Heart rate 98 /min Brenda Francis CUSHION WORKER.FIRE MANAGEMENT SPECIALIST Work Phone: [facility] 04-22-2022 16:17-0400 SaO2% (BldA) [Mass fraction] 100 % Brenda Francis CUSHION WORKER.FIRE MANAGEMENT SPECIALIST Work Phone: [facility] Encounters Encounter Date Encounter Type Care Provider Facility Start: 01-11-2024 ambulatory Danni ChidiChong Montgomeryioana Facility:[facility] Start: 12-21-2023 ambulatory Danni Lue Facility:[facility] Start: 12-06-2023 Refill Lorri orellana MD Work Phone: Neurology Comment on above: Refill Request donepezil refill Start: 05-23-2023 End: 05-23-2023 ambulatory MIGUELITO CHICAS Facility:[facility] Start: 03-07-2023 Patient entered into trial Chasidy Stovall Research Coordinator [facility] Start: 03-07-2023 Telephone encounter Chasidy locke Research Coordinator Neurology Comment on above: Research ([facility] (IRB [id number])) Start: 02-08-2023 E-mail encounter fro m caregiver Sandie Corinna CUSHION WORKER.FIRE MANAGEMENT SPECIALIST Work Phone: [place] Start: 02-08-2023 Follow-up encounter Sandie Beltran CUSHION WORKER.FIRE MANAGEMENT SPECIALIST Work Phone: Neurology Comment on above: sleep follow up Start: 02-08-2023 Patient entered into trial Chasidy Stovall Research Coordinator [facility] Start: 02-08-2023 Telephone encounter Chasidy locke Research Coordinator Neurology Comment on above: Research ([facility] (IRB [id number]) Interest) Start: 02-04-2023 Telephone encounter Sandie Beltran CUSHION WORKER.FIRE MANAGEMENT SPECIALIST Work Phone: Neurology Comment on above: PAP Therapy Follow U p (12/18/22 - 01/16/23 LAST FOUND DL FROM DME ) Start: 02-02-2023 Refill Lorri orellana MD Work Phone: Neurology Comment on above: Refill Request Start: 01-13-2023 Telephone encounter Miquel Gaxiola RN Work Phone: Neurology Comment on above: Returning Patient's Call Start: 12-20-2022 End: 12-21-2022 ambulatory SANDIE WEINSTEIN Facility:[facility] Start: 12-03-2022 Telephone encounter Sandie Beltran CUSHION WORKER.FIRE MANAGEMENT SPECIALIST Work Phone: Neurology Comment on above: PAP Rx Faxed (DME: [facility] ) Start: 12-02-2022 End: 12-02-2022 Telemedicine consultation with patient Sandie Weinstein APRN.FIRE MANAGEMENT SPECIALIST Work Phone: [place] Start: 12-02-2022 End: 12-02-2022 ambulatory Lorri Plascencia MD Work Phone: Neurology Comment on above: Forms from [employer] Obstructive sleep ap carol (Primary Dx); Primary central sleep apnea; Hyperlipidemia, unspecified hyperlipidemia type Start: 12-02-2022 E-mail encounter chris m caregiver Lorri Plascencia MD Work Phone: [facility] Start: 11-17-2022 End: 11-17-2022 ambulatory Lorri Plascencia MD Work Phone: Neurology Comment on above: Alzheimer's disease (HCC) (Primary Dx) Start: 11-17-2022 End: 11-17-2022 Telemedicine consultation with patient Lorri Plascencia MD Work Phone: [facility] Start: 10-21-2022 End: 10-22-[address] PAUL LOPEZ . Facility: Start: 10-12-2022 End: 10-12-2022 ambulatory MIGUELITO CHICAS Facility:[facility] Start: 10-12-2022 End: 10-12-2022 Patient encounter procedure Miguelito Chicas CUSHION WORKER.FIRE MANAGEMENT SPECIALIST Work Phone: Neurology Comment on above: Memory loss (Primary Dx); Encounter for lumbar puncture Start: 10-12-2022 End: 10-12-2022 Patient encounter status Miguelito Rogersjeanettelaura CUSHION WORKER.FIRE MANAGEMENT SPECIALIST Work Phone: Neurology Start: 08-12-2022 Chart abstracting Leah Mckeon RN Ne urology Start: 08-11-2022 End: 08-11-2022 ambulatory LORRI PLASCENCIA Facility:[facility] Start: 08-11-2022 End: 08-11-2022 ambulatory Lorri Plascencia MD Work Phone: Neurology Comment on above: Memory loss (Primary Dx) Start: 08-11-2022 End: 08-11-2022 Telemedicine consultation with patient Lorri Plascencia MD Work Phone: [facility] Start: 08-10-2022 E-mail encounter fro m caregiver [facility] Provider [facility] Start: 08-10-2022 Patient encounter procedure [facility] Provider Neurology Comment on above: cancel appointment Start: 07-21-2022 End: 07-21-2022 ambulatory LORRI PLASCENCIA Facility:[facility] Start: 07-21-2022 End: 07-21-2022 ambulatory Lorri Plascencia MD Work Phone: Neurology Comment on above: Memory loss Start: 07-21-2022 End: 07-21-2022 Telemedicine consultation with patient Lorri Plascencia MD Work Phone: [facility] Start: 05-07-2022 ambulatory NARCISO GUERRA Facility:[facility] Start: 05-07-2022 End: 05-07-2022 Subsequent hospital visit by physician Mri [facility] (Istat/3t) Work Phone: [facility] Radiology MRI Comment on above: Cognitive changes [R 41.89] Start: 04-30-2022 End: 04-30-2022 Patient encounter procedure Gera Tom Warrenanabellabrenda Work Phone: Neurology Comment on above: SHELBY (obstructive sle ep apnea) (Primary Dx) Start: 04-28-2022 ambulatory Narciso Guerra MD Work Phone: Neurology Comment on above: sleep study results Start: 04-28-2022 E-mail encounter chris m caregiver Narciso Guerra MD Work Phone: [facility] Start: 04-27-2022 ambulatory Narciso Guerra MD Work Phone: Neurology Comment on above: lab results Start: 04-27-2022 E-mail encounter fro m caregiver Narciso Guerra MD Work Phone: [facility] Start: 04-25-2022 Chart abstracting Roosevelt Merlos MD Work Phone: Neurology Start: 04-22-2022 End: 04-22-2022 Office outpatient visit 15 minutes Brenda Blanco APRN.FIRE MANAGEMENT SPECIALIST Work Phone: [facility] Comment on above: Bilateral impacted c erumen (Primary Dx); Elevated blood pressure reading without diagnosis of hypertension; Acute otitis externa of left ear, unspecified type Start: 04-22-2022 End: 04-22-2022 Patient encounter procedure Anika Hope, CCC-A Work Phone: Audiology Comment on above: Bilateral impacted c erumen (Primary Dx) Start: 01-21-2022 End: 01-22-[address] PAUL LOPEZ . Facility: Start: 01-12-2022 End: 01-13-[address] PAUL LOPEZ . Facility:[facility] Start: 07-24-2020 End: 07-26-2020 Evaluation and management of inpatient PAUL LOPEZ Facility:[facility] Start: 07-21-2020 End: 07-23-2020 ambulatory NAYA IZAGUIRRE Facility:[facility] Procedures Date Procedure Procedure Detail Performing Clinician Start: 10-12-2022 TOURTELLOTTE BLOOD Og zaina Chicas APRN.FIRE MANAGEMENT SPECIALIST Work Phone: Start: 10-12-2022 Cell count misc body fluids w/differential count Miguelito Chicas APRN.FIRE MANAGEMENT SPECIALIST Work Phone: Start: 10-12-2022 CSF MANUAL DIFF Miguelito Chicas APRN.FIRE MANAGEMENT SPECIALIST Work Phone: Start: 10-12-2022 Glucose body fluid o ther than blood Miguelito Chicas APRN.FIRE MANAGEMENT SPECIALIST Work Phone: Start: 05-07-2022 MRI 3D POST PROCESSING Narciso Guerra MD Work Phone: Start: 05-07-2022 Mri brain brain stem w/o contrast material Narciso Guerra MD Work Phone: Start: 07-21-2020 ANESTH REPAIR OF HERNIA NAYA IZAGUIRRE Start: 07-21-2020 HERNIA REPAIR W/MESH RADHA IZAGUIRRE Start: 07-21-2020 Release Peritoneum, Percutaneous Endoscopic Approach NAYA IZAGUIRRE Start: 07-21-2020 ROBOTIC ASSISTED PRO CEDURE OF TRUNK, PERC ENDO APPROACH NAYA IZAGUIRRE Start: 07-21-2020 ROBOTIC SURGICAL SYSTEM NAYA IZAGUIRRE Start: 07-21-2020 RPR VENTRAL JAGRUTI INI T REDUC NAYA IZAGUIRRE Start: 07-21-2020 SUPPLEMENT ABDOMINAL WALL WITH SYNTH SUB, PERC ENDO APPROACH NAYA IZAGUIRRE Plan of Treatment Date Care Activity Detail Author Start: 11-23-2029 Urine microalbumin profile DTaP,Tdap,Td Vaccine (2 - Td or Tdap) [facility] Start: 04-22-2025 DIABETES SCREEN DIABETES SCREEN [facility] Start: 04-22-2025 Diabetes Screening Diabetes Screenin g [facility] Start: 02-19-2024 Influenza vaccination Influenz a Vaccine (Season Ended) [facility] Start: 06-20-2023 Behavioral Health Screening Behavioral Health Screening [facility] Start: 02-18-2023 Covid-19 Vaccine () Covid-19 Vaccine () [facility] Start: 02-18-2023 Influenza vaccination C [facility] Start: 10-12-2022 End: 12-12-2022 ADMARK PHOSPHO-TAU TOTAL-TAU/AB42 CSF [facility] Work Phone: Comment on above: Expected: 10/12/2022 , Expires: 12/12/2022 Start: 10-12-2022 End: 12-12-2022 Reagin Ab [Titer] in Cerebral spinal fluid by VDRL [facility] Work Phone: Comment on above: Expected: 10/12/2022 , Expires: 12/12/2022 Start: 08-11-2022 End: 10-11-2022 Cell count panel - Cerebral spinal fluid CSF CELL COUNT Lab Routine Memory loss Expected: 08/11/2022, Expires: 10/11/2022 [facility] Work Phone: Comment on above: Expected: 08/11/2022 , Expires: 10/11/2022 Start: 08-11-2022 End: 10-11-2022 Glucose [Mass/volume] in Cerebral spinal fluid GLUCOSE CSF Lab Routine Memory loss Expected: 08/11/2022, Expires: 10/11/2022 [facility] Work Phone: Comment on above: Expected: 08/11/2022 , Expires: 10/11/2022 Start: 08-11-2022 End: 10-11-2022 MISC SEND OUT TST 1 MISC SEND OUT TST 1 Lab Routine Memory loss Expected: 08/11/2022, Expires: 10/11/2022 [facility] Work Phone: Comment on above: Expected: 08/11/2022 , Expires: 10/11/2022 Start: 08-11-2022 End: 10-11-2022 Protein [Mass/volume] in Cerebral spinal fluid PROTEIN CSF Lab Routine Memory loss Expected: 08/11/2022, Expires: 10/11/2022 [facility] Work Phone: Comment on above: Expected: 08/11/2022 , Expires: 10/11/2022 Start: 08-11-2022 End: 10-11-2022 Reagin Ab [Titer] in Cerebral spinal fluid by VDRL VDRL CSF Lab Routine Memory loss Expected: 08/11/2022, Expires: 10/11/2022 [facility] Work Phone: Comment on above: Expected: 08/11/2022 , Expires: 10/11/2022 Start: 08-11-2022 End: 10-11-2022 TOURTELLOTTE BLOOD TOURTELLOTTE BLOOD Lab Routine Memory loss Expected: 08/11/2022, Expires: 10/11/2022 [facility] Work Phone: Comment on above: Expected: 08/11/2022 , Expires: 10/11/2022 Start: 06-20-2022 [facility]PRESSION [facility]ESSMENT [facility] Start: 02-18-2022 Influenza vaccination INFLUENZA (#1) [facility] Start: 06-20-2021 DEPRESSION ASSESSMENT [facility] Start: 05-29-2021 COVID-19 VACCINE (3 - Booster for Pfizer series) COVID-19 VACCINE (3 - Booster for Pfizer series) [facility] Start: 05-29-2021 COVID-19 VACCINE (3 - Pfizer series) COVID-19 VACCINE (3 - Pfizer series) [facility] Start: 2020 PROSTATE CANCER SCREENING DISCUSSION PROSTATE CANCER SCREENING DISCUSSION [facility] Start: 2020 Prostate specific antigen measurement Prostate Cancer Screening Discussion [facility] Start: 2015 SHINGRIX VACCINE (1 of 2) SHINGRIX VACCINE (1 of 2) [facility] Start: 2010 COLOGUARD (FIT-DNA) COLOGUARD (FIT-D NA) [facility] Start: 2010 Colonoscopy COLONOSCOPY [facility] Start: 2010 COLORECTAL CANCER SCREENING COLORECTAL CANCER SCREENING [facility] Start: [address] COLONOGRAPHY [facility] Start: 2010 DIABETES SCREEN DIABETES SCREEN [facility] Start: 2010 FECAL OCCULT BLOOD FECAL OCCULT BLOO D [facility] Start: 2010 Screening for malign ant neoplasm of colon [facility] Start: [address] [facility] Start: 2000 Lipid 1996 panel - S flakita or Plasma Lipid Screening [facility] Start: 2000 Lipid panel Lipid Screening [facility] Start: 2000 LIPID SCREEN LIPID SCREEN [facility] Start: 1984 Hepatitis B Vaccine (1 of 3 - 19+ 3-dose series) Hepatitis B Vaccine (1 of 3 - 19+ 3-dose series) [facility] Start: 1984 Urine microalbumin profile [facility] Start: 1983 HEPATITIS C SCREENING HEPATITIS C [facility] Start: 1983 Hepatitis C screening Hepatitis C [facility] Start: 1983 HIV SCREENING HIV SCREENING [facility] Start: 1965 HEPATITIS B (1 of 3 - 3-dose series) HEPATITIS B (1 of 3 - 3-dose series) [facility] Start: 1965 Hepatitis B Vaccine (1 of 3 - 3-dose series) Hepatitis B Vaccine (1 of 3 - 3-dose series) [facility] End: 08-11-2023 LUMBAR PUNCTURE/YESICA LUMBAR PUNCTURE/YESICA NEUROLOGY Routine Memory loss 1 Occurrences starting 08/11/2022 until 08/11/2023 [facility] Work Phone: Comment on above: 1 Occurrences starti ng 08/11/2022 until 08/11/2023 End: 10-13-2023 LUMBAR PUNCTURE/YESICA LUMBAR PUNCTURE/YESICA NEUROLOGY Routine Memory loss 1 Occurrences starting 10/12/2022 until 10/13/2023 [facility] Work Phone: Comment on above: 1 Occurrences starti ng 10/12/2022 until 10/13/2023 End: 01-01-2024 PAP TITRATION PSG (CPAP, BIPAP, ASV) PAP TITRATION PSG (CPAP, BIPAP, ASV) Procedures Routine Obstructive sleep apnea 1 Occurrences starting 12/02/2022 until 01/01/2024 [facility] Work Phone: Comment on above: 1 Occurrences starti ng 12/02/2022 until 01/01/2024 Removal impacted cer umen irrigation/lvg unilat AMBULATORY EAR LAVAGE/IRRIGATION Procedures Routine Bilateral impacted cerumen Ordered: 04/22/2022 [facility] Work Phone: Comment on above: Ordered: 04/22/2022 TOURTELLOTTE CSF TOURTELLOTTE CS F Lab Routine Memory loss Ordered: 08/11/2022 [facility] Work Phone: Comment on above: Ordered: 08/11/2022 [facility] Payers Date Payer Category Payer Unknown [id number] 2018 Unknown [id number] 1965 Unknown [id number] 1965 Unknown [id number] 1965 Unknown [id number] 1965 Unknown [id number] 1965 Unknown [id number] [id number] 1965 Unknown [id number] [id number] [id number] 1959 Unknown [id number] 1959 Unknown [id number] Social History Date Type Detail Facility [facility] Start: 04-22-2022 Tobacco use and exposure Smoke less tobacco non-user [facility] Start: 04-22-2022 End: 10-12-2022 Alcohol intake Ex-drinker (finding) [facility] Start: 1965 Sex Assigned At Not on file [facility] Start: 04-12-2022 End: 05-07-2022 Exposure to SARS-CoV-2 (event) Not sure [facility] Start: 10-12-2022 End: 11-17-2022 History of Social function [facility] Start: 10-12-2022 End: 11-17-2022 Tobacco use panel [facility] Adult Depression Scr eening Assessment 2 [facility] Clinical Notes 07-24-2020 to 12-06-2023 Telephone Encounter - Tanisha Jeffers APRN.CNP - 12/06/2023 12:33 PM EDTTelephone Encounter - Tanisha Jeffers APRN.CNP - 12/06/2023 12:33 PM EDTMaureen WILLIAM Weinstein - 12/02/2022 3:00 PM EDT Note Date & Type Note Facility 12-06-2023 Telephone encounter Note The following approved medication requests have been transmitted electronically. Requested Prescriptions Signed Prescriptions Disp Refills donepezil (ARICEPT) 5 mg tablet 90 tablet 0 Sig: Take 1 tablet by mouth once daily. Authorizing Provider: LORRI PLASCENCIA Ordering User: TANISHA JEFFERS APRN.CNP [facility] 12-06-2023 Miscellaneous Notes The following approved medication requests have been transmitted electronically. Requested Prescriptions Signed Prescriptions Disp Refills donepezil (ARICEPT) 5 mg tablet 90 tablet 0 Sig: Take 1 tablet by mouth once daily. Authorizing Provider: LORRI PLASCENCIA Ordering User: TANISHA JEFFERS APRN.CNP documented in this encounter [facility] 03-07-2023 Miscellaneous Notes Summary: [facility] Baseline Interest A voicemail was left about participation in [facility] research study. documented in this encounter [facility] 02-09-2023 Miscellaneous Notes MyChart message sent documented in this encounter [facility] 02-08-2023 Miscellaneous Notes Summary: [facility] Potential Participant A call was made to of patient to talk about interest in participating in [facility]. expressed interest in participating. The [facility] consent document was sent through email. A call will be made in a week to discuss enrollment. documented in this encounter [facility] 02-04-2023 Miscellaneous Notes Images from the original note were not included. documented in this encounter [facility] 02-02-2023 Miscellaneous Notes The following approved medication requests have been transmitted electronically. Requested Prescriptions Signed Prescriptions Disp Refills donepezil (ARICEPT) 5 mg tablet 90 tablet 1 Sig: TAKE 1 TABLET BY MOUTH EVERY DAY Authorizing Provider: LORRI PLASCENCIA Ordering User: KIMO PATE APRN.FIRE MANAGEMENT SPECIALIST documented in this encounter [facility] 01-13-2023 Miscellaneous Notes Patient returned call, requested a call back. I left a message explaining the 4% requirement from Medicare, and advised to contact Medicare if they have insurance questions. Advised to call me back if they had other concerns or questions. Sandie Weinstein APRN.FIRE MANAGEMENT SPECIALIST documented in this encounter [facility] 01-11-2023 Note HNO ID: [id number] Author: Ana Jaffe RN Service: ? Author Type: Registered Nurse Type: Progress Notes Filed: 01/11/2023 11:19 AM Note Text: RN faxed LTD forms along with the last 2 office visits notes to [facility]: [phone], confirmation received, patient made aware. Ana Jaffe RN [facility] 01-11-2023 Note HNO ID: [id number] Author: Ana Jaffe RN Service: ? Author Type: Registered Nurse Type: Progress Notes Filed: 01/11/2023 11:09 AM Note Text: RN received LTD claim forms from [facility]. Noted: Forms have already been completed on 12/02/2022, patient was made aware at that time. Will send another message to patient's spouse to let them know that I will re-send the forms along with the last 2 office visit notes. Ana Jaffe RN [facility] 12-03-2022 Miscellaneous Notes Faxed order, office notes, demographics, and sleep study to: DME name: [facility] fax: [phone] DME ph: documented in this encounter [facility] 12-02-2022 Note HNO ID: [id number] Author: Sandie Weinstein APRN.CNP Service: ? Author Type: Nurse Practitioner Type: Progress Notes Filed: 12/02/2022 3:32 PM Note Text: [facility] Sleep Disorders Center Follow up/ Established patient visit Date of last visit : 04/30/2022 IMPRESSION/PLAN: Obstructive sleep apnea Patient is a 56-year-old male with history of cognitive impairment, snoring, waking up choking and gasping for air, multiple awakenings throughout the night, nocturnal enuresis presented to the sleep clinic after a split-night study that showed severe obstructive sleep apnea followed by a Pap titration. In the PAP titration including CPAP as well as BiPAP none of the pressures were able to adequately control his apnea hypopnea and arousal indexes. At 12/8 his apnea-hypopnea index was in the mild range however he did not have any REM sleep during that time. At this point of time recommended him an auto bilevel Pap device and following the compliance data within 2 months. At that point if his AHI is not well controlled, we would bring him in the lab again for bilevel PAP titration. - Will start Auto Bilevel PAP device with IPAP max 25, EPAP min 10 cmH2O, with pressure support 4-8 cmH2O. Close clinical and data download in a month to ensure resolution of events. Should the AHI remain elevated, the patient should return for a full night dedicated Bilevel PAP titration beginning at 16/10 cmH2O with a low threshold for a backup rate for persistent central apneas. Or consider ASV titration if LVEF >50. - I will have a prescription sent to a [employer] ([employer] company - [facility] who will be calling you in the next 1-2 weeks or so. Please call them directly or us if you do not hear from them in this time frame. - You should be eligible for new supplies approximately every 3-6 months, depending on your insurance coverage. - If your mask doesn't fit well, call the [employer] company before 30 days are up to get a new mask without an additional charge. - Insurance requires regular usage and periodic office follow ups for PAP therapy, to continue to cover supplies. - Follow up in 2 months in the office. Recommend scheduling this appointment now to ensure the best time for you. Roosevelt Merlos PGY-4 Sleep fellow [facility] I have supervised and discussed the patient case with the Sleep Medicine Fellow including interviewing the patient in person and have updated the electronic medical record where necessary. I agree with the history, physical, impression and recommendations as documented. Gera Cardona, DO, CBSM, ABSM Clinical Staff Sleep Medicine [facility] [address] [place] [address] I have communicated my name and active licensure. The patient's identity and physical location were verified at the time of this visit. 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 Interval history : Here for follow up for SHELBY follow up after starting PAP therapy. ; SLEEP APNEA Sleep apnea type : SHELBY, Most Recent Apnea-Hypopnea Index (AHI): 47.7 Treatment : PAP therapy DME: [facility] PAP History: Uses Bilevel PAP for 2 hours per night, 7 nights per week. Current PAP settin/7.8 cm H2O. Difficulties with Bilevel PAP: Yes: pressure intolerance and aerophagia, feels pressure is way to high andhe can't tolerate Reviewed objective PAP compliance data: Mask type: full face mask There is not a perceived benefit by the patient: -- PATIENT-ENTERED QUESTIONNAIRE SLEEP SCORES Sleep Questions 04/28/2022 Reason for visit: Sleep apnea Average hours slept in 24 hours: 8 Accidents or near accidents due to drowsy drivin [place] Sleepiness Scale 04/28/2022 Score Incomplete PROMIS CAT Sleep Disturbance 04/28/2022 PROMIS Sleep Disturbance T-Score 65 (moderate) PROMIS Sleep Disturbance Percentile 7 % PHQ-9 04/28/2022 Score 14 PROMIS Global Health - (T-Scores - the mean of general population = 50. Five points is a clinically meaningful difference.) 04/23/2022 Physical T-Score 54.1 Mental T-Score 41.1 PMH, PSH, SH: reviewed SLEEP RELATED ROS Review of Systems Constitutional: Positive for fatigue. Respiratory: Negative. Cardiovascular: Negative. ALLERGIES No Known Allergies CURRENT MEDICATIONS: donepezil (ARICEPT) 5 mg tablet Take 1 tablet by mouth once daily. CPAP/BIPAP/OTHER Type .CPAPSettings into a note to see current settings/supplies/DME information. aspirin, enteric coated (ASPIRIN, ENTERIC COATED) 81 mg EC tablet onc (more content not included)... [facility] 12-02-2022 History of Present illness Narrative Images from the original note were not included. [facility] Sleep Disorders Center Follow up/ Established patient visit Date of last visit : 04/30/2022 IMPRESSION/PLAN: Obstructive sleep apnea Patient is a 56-year-old male with history of cognitive impairment, snoring, waking up choking and gasping for air, multiple awakenings throughout the night, nocturnal enuresis presented to the sleep clinic after a split-night study that showed severe obstructive sleep apnea followed by a Pap titration. In the PAP titration including CPAP as well as BiPAP none of the pressures were able to adequately control his apnea hypopnea and arousal indexes. At 05/27 his apnea-hypopnea index was in the mild range however he did not have any REM sleep during that time. At this point of time recommended him an auto bilevel Pap device and following the compliance data within 2 months. At that point if his AHI is not well controlled, we would bring him in the lab again for bilevel PAP titration. - Will start Auto Bilevel PAP device with IPAP max 25, EPAP min 10 cmH2O, with pressure support 4-8 cmH2O. Close clinical and data download in a month to ensure resolution of events. Should the AHI remain elevated, the patient should return for a full night dedicated Bilevel PAP titration beginning at 16/10 cmH2O with a low threshold for a backup rate for persistent central apneas. Or consider ASV titration if LVEF >50. - I will have a prescription sent to a [employer] ([employer] medical [employer]) company - [facility] who will be calling you in the next 1-2 weeks or so. Please call them directly or us if you do not hear from them in this time frame. - You should be eligible for new supplies approximately every 3-6 months, depending on your insurance coverage. - If your mask doesn't fit well, call the [employer] company before 30 days are up to get a new mask without an additional charge. - Insurance requires regular usage and periodic office follow ups for PAP therapy, to continue to cover supplies. - Follow up in 2 months in the office. Recommend scheduling this appointment now to ensure the best time for you. Roosevelt Merlos PGY-4 Sleep fellow [facility] I have supervised and discussed the patient case with the Sleep Medicine Fellow including interviewing the patient in person and have updated the electronic medical record where necessary. I agree with the history, physical, impression and recommendations as documented. Gera Cardona DO, CBSM, ABSM Clinical Staff Sleep Medicine [facility] [address] [place] [address] I have communicated my name and active licensure. The patient's identity and physical location were verified at the time of this visit. 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 Interval history : Here for follow up for SHELBY follow up after starting PAP therapy. ; SLEEP APNEA Sleep apnea type : SHELBY, Most Recent Apnea-Hypopnea Index (AHI): 47.7 Treatment : PAP therapy DME: [facility] PAP History: Uses Bilevel PAP for 2 hours per night, 7 nights per week. Current PAP settin/7.8 cm H2O. Difficulties with Bilevel PAP: Yes: pressure intolerance and aerophagia, feels pressure is way to high andhe can't tolerate Reviewed objective PAP compliance data: Mask type: full face mask There is not a perceived benefit by the patient: PATIENT-ENTERED QUESTIONNAIRE SLEEP SCORES Sleep Questions 04/28/2022 Reason for visit: Sleep apnea Average hours slept in 24 hours: 8 Accidents or near accidents due to drowsy drivin [place] Sleepiness Scale 04/28/2022 Score Incomplete PROMIS CAT Sleep Disturbance 04/28/2022 PROMIS Sleep Disturbance T-Score 65 (moderate) PROMIS Sleep Disturbance Percentile 7 % PHQ-9 04/28/2022 Score 14 PROMIS Global Health - (T-Scores - the mean of general population = 50. Five points is a clinically meaningful difference.) 04/23/2022 Physical T-Score 54.1 Mental T-Score 41.1 PMH, PSH, SH: reviewed SLEEP RELATED ROS Review of Systems Constitutional: Positive for fatigue. Respiratory: Negative. Cardiovascular: Negative. ALLERGIES No Known Allergies CURRENT MEDICATIONS: donepezil (ARICEPT) 5 mg tablet Take 1 tablet by mouth once daily. CPAP/BIPAP/OTHER Type .CPAPSettings into a note to see current settings/supplies/DME information. aspirin, enteric coated (ASPIRIN, ENTERIC COATED) 81 mg EC tablet once daily. omeprazole (PRILOSEC) 20 mg capsule 40 mg once daily. oxaprozin (DAYPRO) 600 mg tablet as needed. simvastatin (ZOCOR) 20 mg tablet daily at bedtime. PHYSICAL EXAMINATION: Neurological exam: Patient approapriately answering questions. Language function normal. Memory normal. Speech fluent. IMPRESSION/PLAN: Obstructive sleep apnea (primary encounter diagnosis) Primary central sleep apnea Hyperlipidemia, unspecified hyperlipidemia type Clinical Global Impression of Change ( CGI-C) Compared to the patient's condition at baseline, how much has the patient changed? Minimally worse A pleasant 57-year-old male with a past medical history of complex sleep apnea, hyperlipidemia, cognitive impairment, and obesity who presents via virtual visit with his for follow-up management of sleep apnea after starting PAP therapy. He had a split-night PSG completed 04/25/2022. The baseline portion of the study recorded 88 minutes of sleep and during that time there were 78 respiratory events consisting of 14 central apneas and 56 hypopneas. The total AHI was 47.7. His mean oxygen saturation was 92%, with a minimum of 87%. During the PAP titration portion of the study none of the tested CPAP settings normalized his AHI and he was transitioned to bilevel settings. His central apnea index was normalized with bilevel settings 12/8, however resurfaced again at a bilevel setting of 15/10. Sleep related hypoventilation was also noted. He was initiated on BiPAP 25/8 with a pressure support of 4 cm water pressure. He has been unable to tolerate BiPAP and this has been causing worsening sleep for both him and his . He reports the pressure settings are way too high causing frequent awakenings. Last night he woke with water coming out of the mask itself. At this time I recommend we return to the lab for a dedicated PAP titration study using bilevel settings with a low threshold to transition to bilevel with backup rate. In the meantime I will lower the pressure settings to see if he can tolerate and gain tolerability of PAP therapy in general. Advised to schedule follow-up 3 weeks after the repeat sleep study. All questions were answered. Sandie Weinstein APRN.EFRAIN I spent a total of 30 minutes on the date of the service which included preparing to see the patient, [id number] patient care, completing clinical documentation, obtaining and/or reviewing separately obtained history, counseling and educating the patient/family/caregiver, ordering medications, tests, or procedures, and communicating results to the patient/family/caregiver. documented in this encounter [facility] 11-17-2022 Note HNO ID: [id number] Author: Lorri Plascencia MD Service: ? Author Type: Physician Type: Progress Notes Filed: 11/17/2022 5:40 PM Note Text: Néo Jeffery [address] [place] [id number] November 17, 2022 [facility] Report Virtual Virtual visit with Patient and family members Chief complaint: poor memory, forgetfulness I have communicated my name and active licensure. The patient's identity and physical location were verified at the time of this visit. 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 Patient is coming back to discuss results of biomarkers. INTERPRETATION: Alzheimer Disease TEST: A-beta 42 TECHNICAL RESULT: 405.2 pg/mL REFERENCE RANGE: Not consistent with AD: P-Tau <54 pg/mL and ATI >1.2, Borderline: P-Tau 54-68 pg/mL and/or ATI 0.8-1.2, AD: P-Tau >68 pg/mL and ATI <0.8 INTERPRETATION: TEST: T-Tau TECHNICAL RESULT: 1089.85 pg/mL REFERENCE RANGE: INTERPRETATION: TEST: P-Tau TECHNICAL RESULT: 121.45 pg/mL REFERENCE RANGE: INTERPRETATION: TEST: ATI TECHNICAL RESULT: 0.27 REFERENCE RANGE: Patient did not think he had memory issues until September 2021 when his work noticed an error and had him undertake testing that showed cognitive impairment. He has not been working since that time. 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 He recalls forgetting a clip/tie for his gun one day. He also failed firearm safety training which is required every months. He states he is still able to perform ADLs at home and still able to work in his other job with [employer] systems. However, he has noticed that he can't count backwards or do math as well as in the past. 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 Patient notes that perhaps he can be forgetful and has to pause to think about getting an object at times but he has no trouble with finances, driving, or remembering his medicines. In retrospect, notes that perhaps patient did have more forgetfulness starting in 2018 after a routine colonoscopy was c/b perforated bowel leading to sepsis, shock, and a month of hospitalization. Symptoms perhaps gradually worsened until work noticed that it was affecting patient's performance. She does note that patient has been frustrated about his symptoms There is no known family history of neurodegenerative conditions. Patient had quit drinking alcohol 17 years ago and denies other drug use. does note that patient has snored as long as they've been . She has witnessed apneic episodes. Sometimes patient will physically get up because of them though patient does not recall these episodes. They do sleep in separate room. Patient notes he did have a sleep study a few years ago but no interventions were done afterwards. Both patient and has noticed declining hearing. Patient would like to know what is going on with his symptoms and if he'll be able to count backwards again. No significant behavioral symptoms noted today. Patient had been evaluated before by Neuropsychologist which was arranged by his employer. He had been assessed by Dr Guerra. His MOCA was 15. Blood work -extensive was negative (including heavy metals). Family history:none ADL's normal, unchanged IADL's needs help with complex tasks MRI 2021: No evidence of an acute intracranial process or intracranial mass. Severe generalized volume loss. Hippocampal volumes at the first percentile when compared to age matched normal controls by quantitative analysis. Mild white matter disease which is nonspecific but likely reflective of chronic microvascular ischemia. No evidence of parenchymal microhemorrhages by MRI. 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 2 children. Social History Tobacco Use Smoking status: Never Smokeless tobacco: Never Substance Use Topics Alcohol use: Not Currently Social History reviewed by Lorri Plascencia MD PAST MEDICAL HISTORY Diagnosis Date COVID-19 virus infection 04/2020 DM2 (diabetes mellitus, type 2) (HCC) GERD (gastroesophageal reflux disease) HLD (hyperlipidemia) Vital Signs: There were no vitals taken for this visit. Allergies: ALLERGIES No Known Allergies Medications: Current Outpat (more content not included)... [facility] 11-17-2022 Instructions Lorri Plascencia MD - 11/17/2022 5:34 PM EDT INTERPRETATION: Alzheimer Disease TEST: A-beta 42 TECHNICAL RESULT: 405.2 pg/mL REFERENCE RANGE: Not consistent with AD: P-Tau <54 pg/mL and ATI >1.2, Borderline: P-Tau 54-68 pg/mL and/or ATI 0.8-1.2, AD: P-Tau >68 pg/mL and ATI <0.8 INTERPRETATION: TEST: T-Tau TECHNICAL RESULT: 1089.85 pg/mL REFERENCE RANGE: INTERPRETATION: TEST: P-Tau TECHNICAL RESULT: 121.45 pg/mL REFERENCE RANGE: INTERPRETATION: TEST: ATI TECHNICAL RESULT: 0.27 REFERENCE RANGE: These are our recommendations: - Cognitive therapy at [facility]. - Aricept 5 mg daily with breakfast - Namenda 5 twice a day with breakfast and dinner. - Maintain physically, socially and cognitively healthy lifestyle. - Schedule in person report in February 2023. Please schedule next visit with Lorri Plascencia MD, PhD or Kimo Pate NP in person in February -March 2023 To schedule testing and visits please call: [phone]. If you have new, unexpected concerns in between visits please call our office at [phone] ( you will be able to reach one of our nurses). [facility] fax [phone] Ways to keep your brain healthy: Follow up regularly with your primary care and other providers to ensure your vascular risk factors (blood pressure, blood sugar, sleep apnea, and cholesterol levels, etc.) are well controlled. Eat a healthy diet, foods that are good for your heart are also good for your brain. It is also important to drink plenty of water to stay hydrated. Exercise - as little as 20 minutes of exercise per day (150 minutes per week) - has been shown to have a positive effect on memory and cognitive function. Maintain an active social life. Get 7-8 hours of sleep per night. If you nap during the day, try to keep napping to a regular schedule. Maintain a predictable and regular daily routine. Try learning new hobbies, games, or skills. Keep your brain active with reading, puzzles, and games. Please refer to healthybrains.org website. It provides evidence based education on diet, exercise and activities that have benefit for memory. MIND Diet guidelines: - Eat 1/2 cup berries, especially blueberries and strawberries, at least 2x per week. - Eat 1 handful (1/4 cup) nuts at least 5x per week. Include walnuts. - Eat 100% whole grains 3x per day (brown rice, wild rice, black rice, quinoa, barley, bulgur, farro, rolled oats, steel cut oats, amaranth, spelt, millet, wheat berries). - Eat 1-2 cups of leafy greens at least 6x per week (spinach, arugula, kale, mustard greens, theodora greens, dandelion greens, deyanira lettuce). - Eat at least 1 other vegetable (other than dark leafy greens) every day. - Eat 1/2 cup beans or lentils at least 3x per week. - Eat fish at least once per week. Choose low mercury fish: salmon, sardines, anchovies, fernandez, halibut, scallops. Avoid fried fish and fish high in mercury (swordfish, Brazilian sea martinez, orange roughy, ahi tuna, albacore (white) tuna). Choose light/skipjack tuna instead of white tuna, and limit to 2 servings/week because it has some mercury. - Eat chicken at least 2x per week. - Extra virgin olive oil is the primary oil used at home for cooking and on salads. - Limit margarine and butter to less than 1 Tbsp per day. - Limit red meat and processed meats to less than 4x per week. Red meat: beef, pork, noriega, venison, veal, bison. Processed meats: nevarez, hotdogs, salami, sausage, pepperoni, pastrami, cold cuts, ham - Limit sweets, candy, and pastries to less than 5x per week. - Limit cheese to 1 serving per week or less. 1 serving = 1 ounce. - Limit alcohol to 1 drink per day for women and 2 drinks per day for men. - Avoid fried foods and fast foods. Other sources of information and support: When there is a diagnosis of memory problems, no matter the type, we encourage families to educate themselves, learn communication tips, and learn ways to adjust expectations over time. There are many resources available online. Three excellent resources are: The Alzheimer's Association (web site: alz.org/[place]) available 24 hours a day, 7 days per week. Contact: Local: ; Toll free: 962.357.6995 Family Caregiver [place] (web site: Caregiver.org) MARLEEN Hawkins-- a secure online solution for quality information, support, and resources for family caregivers. Contact: Toll-free number: 814.207.6774 Alzheimers.gov - Find Alzheimer disease and related dementias information, resources, research and more. documented in this encounter [facility] 11-17-2022 History of Present illness Narrative Images from the original note were not included. Noé Jeffery [address] [place] [id number] November 17, 2022 [facility] Report Virtual Virtual visit with Patient and family members Chief complaint: poor memory, forgetfulness I have communicated my name and active licensure. The patient's identity and physical location were verified at the time of this visit. 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 Patient is coming back to discuss results of biomarkers. INTERPRETATION: Alzheimer Disease TEST: A-beta 42 TECHNICAL RESULT: 405.2 pg/mL REFERENCE RANGE: Not consistent with AD: P-Tau <54 pg/mL and ATI >1.2, Borderline: P-Tau 54-68 pg/mL and/or ATI 0.8-1.2, AD: P-Tau >68 pg/mL and ATI <0.8 INTERPRETATION: TEST: T-Tau TECHNICAL RESULT: 1089.85 pg/mL REFERENCE RANGE: INTERPRETATION: TEST: P-Tau TECHNICAL RESULT: 121.45 pg/mL REFERENCE RANGE: INTERPRETATION: TEST: ATI TECHNICAL RESULT: 0.27 REFERENCE RANGE: Patient did not think he had memory issues until September 2021 when his work noticed an error and had him undertake testing that showed cognitive impairment. He has not been working since that time. 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 He recalls forgetting a clip/tie for his gun one day. He also failed firearm safety training which is required every months. He states he is still able to perform ADLs at home and still able to work in his other job with [employer] systems. However, he has noticed that he can't count backwards or do math as well as in the past. 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 Patient notes that perhaps he can be forgetful and has to pause to think about getting an object at times but he has no trouble with finances, driving, or remembering his medicines. In retrospect, notes that perhaps patient did have more forgetfulness starting in 2018 after a routine colonoscopy was c/b perforated bowel leading to sepsis, shock, and a month of hospitalization. Symptoms perhaps gradually worsened until work noticed that it was affecting patient's performance. She does note that patient has been frustrated about his symptoms There is no known family history of neurodegenerative conditions. Patient had quit drinking alcohol 17 years ago and denies other drug use. does note that patient has snored as long as they've been . She has witnessed apneic episodes. Sometimes patient will physically get up because of them though patient does not recall these episodes. They do sleep in separate room. Patient notes he did have a sleep study a few years ago but no interventions were done afterwards. Both patient and has noticed declining hearing. Patient would like to know what is going on with his symptoms and if he'll be able to count backwards again. No significant behavioral symptoms noted today. Patient had been evaluated before by Neuropsychologist which was arranged by his employer. He had been assessed by Dr Guerra. His MOCA was 15. Blood work -extensive was negative (including heavy metals). Family history:none ADL's normal, unchanged IADL's needs help with complex tasks MRI 2021: No evidence of an acute intracranial process or intracranial mass. Severe generalized volume loss. Hippocampal volumes at the first percentile when compared to age matched normal controls by quantitative analysis. Mild white matter disease which is nonspecific but likely reflective of chronic microvascular ischemia. No evidence of parenchymal microhemorrhages by MRI. 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 2 children. Social History Tobacco Use Smoking status: Never Smokeless tobacco: Never Substance Use Topics Alcohol use: Not Currently Social History reviewed by Lorri Plascencia MD PAST MEDICAL HISTORY Diagnosis Date COVID-19 virus infection 04/2020 DM2 (diabetes mellitus, type 2) (HCC) GERD (gastroesophageal reflux disease) HLD (hyperlipidemia) Vital Signs: There were no vitals taken for this visit. Allergies: ALLERGIES No Known Allergies Medications: Current Outpatient Medications on File Prior to Visit Medication Sig CPAP/BIPAP/OTHER Type .CPAPSettings into a note to see current settings/supplies/DME information. aspirin, enteric coated (ASPIRIN, ENTERIC COATED) 81 mg EC tablet once daily. omeprazole (PRILOSEC) 20 mg capsule 40 mg once daily. oxaprozin (DAYPRO) 600 mg tablet as needed. simvastatin (ZOCOR) 20 mg tablet daily at bedtime. No current facility-administered medications on file prior to visit. Mental Status Exam as per Report and virtual assessment: Patient presents with fair grooming and behavior. Euthymic. Thought process is linear and logical. No evidence for thought content or perception abnormalities today. Insight and judgement fair Risk assessment: Risk factors: Recent deterioration of health Chronic illness Protective factors: Future oriented. No substance use. No past psychiatric history. No suicidal ideations neither plan nor h/o attempts. Good support system. Imminent risk for suicide low. Neurological Exam Reportedly and as per virtual assessment: patient is oriented to place, person and partially to time. Speech is well articulated impoverished though. No overt focal neurological deficit. No gait difficulties. IMPRESSION and ASSESSMENT: Major Neurocognitive Disorder. Possible Alzheimer's disease, biomarkers confirmed- early onset. Bradycardia. PLAN: - [facility] referral - Cognitive therapy at [facility]. - Aricept 5 mg daily with breakfast - Namenda 5 twice a day with breakfast and dinner. - Maintain physically, socially and cognitively healthy lifestyle. - Schedule in person report in February 2023. The meaning of proposed diagnosis discussed and explained in details. Rationale behind medication, mechanisms of action and potential side effects discussed at length. The need for follow-ups underlined. I stressed the importance of mental and physical activity in preserving brain health. Details of the plan and instructions discussed at length. Patient expressed understanding of the details and are willing to follow all the recommendations. All the questions answered and concerns addressed. Today's session was combined as well with psychiatric therapeutic intervention of a supportive type. Fears and concerns were validated. Support and reassurance provided. I spent a total of 45 minutes on an encounter as above, reviewing Patient records, education and ordering further testing as well as coordinating care. . Lorri Plascencia MD, PhD Geriatric Psychiatry [facility] Brain Health CC: 1. No primary care provider on file., (fax) None documented in this encounter [facility] 11-12-2022 Note HNO ID: [id number] Author: Nataly Lafleur Service: ? Author Type: ? Type: Progress Notes Filed: 11/12/2022 8:54 AM Note Text: 11/12 Forms signed and faxed back. Scanned in [facility]. [facility] 11-10-2022 Note HNO ID: [id number] Author: Ana Jaffe RN Service: ? Author Type: Registered Nurse Type: Progress Notes Filed: 11/10/2022 9:26 AM Note Text: Disability forms filled out, will give to the provider when back in office to review and sign. Ana Jaffe RN [facility] 11-09-2022 Note HNO ID: [id number] Author: Nataly Lafleur Service: ? Author Type: ? Type: Progress Notes Filed: 11/09/2022 10:14 AM Note Text: 11/09 Rec'd via fax [employer] Disability [employer] form, scanned into [employer] and gave to Ana Dejesus For review. [facility] 10-12-2022 Note HNO ID: [id number] Author: Miguelito Chicas APRN.EFRAIN Service: ? Author Type: Nurse Practitioner Type: Progress Notes Filed: 10/12/2022 2:33 PM Note Text: [facility] BRAIN [facility] PROCEDURE FOR DIAGNOSTIC TESTING Noé Jeffery, [id number] October 12, 2022, 8:57 AM INFORMED CONSENT The risks, benefits and anticipated outcomes of the procedure, the risks and benefits of the alternatives to the procedure and the roles and tasks of the personnel to be involved were discussed with the patient, who consents to the procedure and agrees to proceed. I verify that I personally obtained Noé Jeffery's consent, Miguelito Chicas APRN.FIRE MANAGEMENT SPECIALIST UNIVERSAL PROTOCOL / SAFETY CHECKLIST Procedure to be Performed: Lumbar Puncture Sign In: A Moment of CARE was completed. Personnel directly involved with the procedure wore the appropriate PPE (Personal Protective Equipment). No special equipment needed. Patient/Surrogate Stated/Verified: PATIENT VERIFIED(optional for EMERGENT procedures): Patient name, Date of , Relevant allergies, and The intended procedure Time Out Communication: Intended patient and procedure match the source documents. Consent documented and matches the intended procedure. Relevant labs, photos, and/or imaging studies have been reviewed. Correct side/site marked and visible. No medications required for procedure. No fire risk assessment and interventions applicable. No implant(s) inserted. Sign Out: SIGN OUT (optional for EMERGENT procedures): All specimen containers correctly labeled. All instruments, equipment, possible retained foreign bodies accounted for. Post-procedure follow-up management communicated and Plan of Care Visit completed when applicable. Miguelito Chicas APRN.CNP Pre-Procedure Labs: Component Latest Ref Rng AND Units 04/22/2022 Platelet Count 150 - 400 k/uL 223 Pertinent History: Prior LP or Epidural: NO Allergy to lidocaine: NO Allergy to betadine: NO Taking anticoagulants: NO Back problems or trauma: NO Sign in Communication: Completed Pre-LP vitals: 1039 122/86 HR 56 Procedure: Performed by: Miguelito Chicas APRN.CNP Asst: Tanisha jeffers RN / Ana Jaffe RN Relevant documentation, images, implants or special equipment present: N/A Patient positioned: left lateral decubitus Prepped and draped under aseptic conditions. Procedural site marked, verified by: Miguelito Chicas APRN.CNP Site: L4-5 AUDIBLE TIME OUT: 1045 EST, Patient verified by name and . Procedure verified. Local administration of 1% lidocaine 5cc. Interspace entered with Sprotte 22 gauge 9cm spinal needle Opening pressure: not obtained CSF obtained: 8cc for patient testing. Appearance: clear and colorless Spinal needle removed, area cleansed and bandage applied. Patient placed supine. Sign Out Discussion Post-LP instructions given: YES Verbal and written Pt. tolerated procedure well: YES Pt. remained supine for 30 min. Post-LP vitals: 1201 BP 117/74 Pulse (!) 58 Miguelito Chicas APRN.CNP October 12, [address] [facility] 10-12-2022 Nurse Note [facility] LUMBAR PUNCTURE NURSE DISCHARGE NOTE The patient has undergone a lumbar puncture procedure and at this time has completed their post procedural rest period. Vital Signs: BP 117/74 Pulse (!) 58 Insertion Site Dressing: clean, dry, or intact Ensured that patient and caregiver had a copy of LP discharge instructions and addressed questions/concerns if present: Yes Patient permitted to leave at this time, accompanied by spouse Patient denied numbness and tingling in extremities. Denies dizziness upon standing. Tanisha Jeffers RN documented in this encounter [facility] 10-12-2022 Instructions Miguelito Chicas APRN.CNP - 10/12/2022 10:31 AM EDT Images from the original note were not included. [facility] Neurological [place] GOING HOME INSTRUCTIONS POST LP HEADACHE Prevention Drink plenty of fluids - Water is best. Also include (in addition to water) caffeinated drinks such as coffee or tea. Take it easy- NO heavy lifting or strenuous exercise for the next 48 hours What to do if you develop a Headache: A spinal headache is usually worse in the sitting or standing position and feels better when laying down. This headache, which can be severe, would typically start in the first 24 to 48 hours after the LP and last anywhere from several hours to 7-10 days. It responds best to complete bedrest. Continue to drinking plenty of fluids including water and caffeinated drinks such as coffee or tea You can take [id number] Tylenol and/or Ibuprofen as directed INFECTION PREVENTION The procedure was done under sterile field which helps to prevent infection. Do not sit in any water for the next 48 hours. No swimming, hot tubs or bath. You may shower tomorrow. When should I call my provider? You can always call us if you have a question. -If during regular office hours: Tuesday thru Tuesday from 8-5pm, please contact our office line [phone] and then hit [phone] , please ask our administrative office clerk to page the provider who performed the spinal tap. -For nights or weekends, call or toll free and ask the fulling mill operator the page the Neurology resident on-call. 2. If your headache is unusually severe regardless of bedrest or lasts more than two days 3. If you develop a fever 4. If you notice inflammation, pus formation or clear drainage from the site of the needle puncture You may resume your usual activities after 48 hours. documented in this encounter [facility] 10-12-2022 History of Present illness Narrative [facility] BRAIN [facility] PROCEDURE FOR DIAGNOSTIC TESTING Noé Jeffery, [id number] October 12, 2022, 8:57 AM INFORMED CONSENT The risks, benefits and anticipated outcomes of the procedure, the risks and benefits of the alternatives to the procedure and the roles and tasks of the personnel to be involved were discussed with the patient, who consents to the procedure and agrees to proceed. I verify that I personally obtained Noé Jeffery's consent, Miguelito Chicas APRN.[facility] UNIVERSAL PROTOCOL / SAFETY CHECKLIST Procedure to be Performed: Lumbar Puncture Sign In: A Moment of CARE was completed. Personnel directly involved with the procedure wore the appropriate PPE (Personal Protective Equipment). No special equipment needed. Patient/Surrogate Stated/Verified: PATIENT VERIFIED(optional for EMERGENT procedures): Patient name, Date of , Relevant allergies, and The intended procedure Time Out Communication: Intended patient and procedure match the source documents. Consent documented and matches the intended procedure. Relevant labs, photos, and/or imaging studies have been reviewed. Correct side/site marked and visible. No medications required for procedure. No fire risk assessment and interventions applicable. No implant(s) inserted. Sign Out: SIGN OUT (optional for EMERGENT procedures): All specimen containers correctly labeled. All instruments, equipment, possible retained foreign bodies accounted for. Post-procedure follow-up management communicated and Plan of Care Visit completed when applicable. Miguelito Chicas APRN.[facility] Pre-Procedure Labs: Component Latest Ref Rng & Units 04/22/2022 Platelet Count 150 - 400 k/uL 223 Pertinent History: Prior LP or Epidural: NO Allergy to lidocaine: NO Allergy to betadine: NO Taking anticoagulants: NO Back problems or trauma: NO Sign in Communication: Completed Pre-LP vitals: 1039 122/86 HR 56 Procedure: Performed by: Miguelito Chicas APRN.[facility] Asst: Tanisha jeffers, MARCI / Ana Jaffe RN Relevant documentation, images, implants or special equipment present: N/A Patient positioned: left lateral decubitus Prepped and draped under aseptic conditions. Procedural site marked, verified by: Miguelito Chicas APRN.[facility] Site: L4-5 AUDIBLE TIME OUT: 1045 EST, Patient verified by name and . Procedure verified. Local administration of 1% lidocaine 5cc. Interspace entered with Sprotte 22 gauge 9cm spinal needle Opening pressure: not obtained CSF obtained: 8cc for patient testing. Appearance: clear and colorless Spinal needle removed, area cleansed and bandage applied. Patient placed supine. Sign Out Discussion Post-LP instructions given: YES Verbal and written Pt. tolerated procedure well: YES Pt. remained supine for 30 min. Post-LP vitals: 1201 BP 117/74 Pulse (!) 58 Miguelito Chicas APRN.CNP October 12, 2022 documented in this encounter [facility] 10-04-2022 Note HNO ID: [id number] Author: Leah Mckeon RN Service: ? Author Type: Registered Nurse Type: Progress Notes Filed: 10/04/2022 12:56 PM Note Text: Entered in error. Leah Mckeon RN [facility] 08-12-2022 Note HNO ID: [id number] Author: Leah Mckeon RN Service: ? Author Type: Registered Nurse Type: Progress Notes Filed: 08/12/2022 9:27 AM Note Text: PRE-LUMBAR PUNCTURE CARE COORDINATION ABSTRACT -Patient scheduled for LP on October 12, 2022. -Current anticoagulants per EMR medication list: aspirin 81 mg daily -Outstanding pre-procedural lab orders: none Component Latest Ref Rng AND Units 04/22/2022 WBC 3.70 - 11.00 k/uL 5.02 RBC 4.20 - 6.00 m/uL 6.26 (H) Hemoglobin 13.0 - 17.0 g/dL 14.9 Hematocrit 39.0 - 51.0 % 47.5 MCV 80.0 - 100.0 fL 75.9 (L) MCH 26.0 - 34.0 pg 23.8 (L) MCHC 30.5 - 36.0 g/dL 31.4 RDW-CV 11.5 - 15.0 % 14.6 Platelet Count 150 - 400 k/uL 223 MPV 9.0 - 12.7 fL 10.8 Neut% % 63.3 Abs Neut (ANC) 1.45 - 7.50 k/uL 3.18 Lymph% % 28.9 Abs Lymph 1.00 - 4.00 k/uL 1.45 Hickory% % 6.2 Abs Hickory <0.87 k/uL 0.31 Eosin% % 0.6 Abs Eosin <0.46 k/uL 0.03 Baso% % 0.8 Abs Baso <0.11 k/uL 0.04 Immature Gran % % 0.2 IMMATURE GRANS (ABS) <0.10 k/uL <0.03 NRBC /100 WBC 0.0 Absolute nRBC <0.01 k/uL <0.01 DTYPE Auto Care Coordination Interventions: none Leah Mckeon RN [facility] 08-12-2022 History of Present illness Narrative PRE-LUMBAR PUNCTURE CARE COORDINATION ABSTRACT -Patient scheduled for LP on October 12, 2022. -Current anticoagulants per EMR medication list: aspirin 81 mg daily -Outstanding pre-procedural lab orders: none Component Latest Ref Rng & Units 04/22/2022 WBC 3.70 - 11.00 k/uL 5.02 RBC 4.20 - 6.00 m/uL 6.26 (H) Hemoglobin 13.0 - 17.0 g/dL 14.9 Hematocrit 39.0 - 51.0 % 47.5 MCV 80.0 - 100.0 fL 75.9 (L) MCH 26.0 - 34.0 pg 23.8 (L) MCHC 30.5 - 36.0 g/dL 31.4 RDW-CV 11.5 - 15.0 % 14.6 Platelet Count 150 - 400 k/uL 223 MPV 9.0 - 12.7 fL 10.8 Neut% % 63.3 Abs Neut (ANC) 1.45 - 7.50 k/uL 3.18 Lymph% % 28.9 Abs Lymph 1.00 - 4.00 k/uL 1.45 Hickory% % 6.2 Abs Hickory <0.87 k/uL 0.31 Eosin% % 0.6 Abs Eosin <0.46 k/uL 0.03 Baso% % 0.8 Abs Baso <0.11 k/uL 0.04 Immature Gran % % 0.2 IMMATURE GRANS (ABS) <0.10 k/uL <0.03 NRBC /100 WBC 0.0 Absolute nRBC <0.01 k/uL <0.01 DTYPE Auto Care Coordination Interventions: none Leah Mckeon RN documented in this encounter [facility] 08-11-2022 Note HNO ID: [id number] Author: Lorri Plascencia MD Service: ? Author Type: Physician Type: Progress Notes Filed: 08/11/2022 3:58 PM Note Text: Noé Jeffery [address] [place] [id number] August 11, 2022 Time: 2:35 PM [facility] OUTPATIENT VISIT TYPE New Patient Visit Virtual Virtual visit with Patient and family members Chief complaint: poor memory, forgetfulness SUBJECTIVE: Noé Jeffery is a 57 year old male assessed today for report initially referred for cognitive complaints. Results of previously ordered diagnostic studies, previous records and imaging studies were reviewed and summarized. My final recommendations will be communicated back to the requesting physician by way of shared Medical record or letter to requesting physician via US mail. Patient did not think he had memory issues until September 2021 when his work noticed an error and had him undertake testing that showed cognitive impairment. He has not been working since that time. 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 He recalls forgetting a clip/tie for his gun one day. He also failed firearm safety training which is required every months. He states he is still able to perform ADLs at home and still able to work in his other job with [employer] systems. However, he has noticed that he can't count backwards or do math as well as in the past. 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 Patient notes that perhaps he can be forgetful and has to pause to think about getting an object at times but he has no trouble with finances, driving, or remembering his medicines. In retrospect, notes that perhaps patient did have more forgetfulness starting in 2019 after a routine colonoscopy was c/b perforated bowel leading to sepsis, shock, and a month of hospitalization. Symptoms perhaps gradually worsened until work noticed that it was affecting patient's performance. She does note that patient has been frustrated about his symptoms There is no known family history of neurodegenerative conditions. Patient had quit drinking alcohol 17 years ago and denies other drug use. does note that patient has snored as long as they've been . She has witnessed apneic episodes. Sometimes patient will physically get up because of them though patient does not recall these episodes. They do sleep in separate room. Patient notes he did have a sleep study a few years ago but no interventions were done afterwards. Both patient and has noticed declining hearing. Patient would like to know what is going on with his symptoms and if he'll be able to count backwards again. No significant behavioral symptoms noted today. Patient reports memory impairment which had been gradually progressive. Specific concerns include poor recall for recent events, misplacing items, conversations, and intended tasks. He is more reliant on compensatory strategies. Patient is on CPAP. Patient had been evaluated before by Neuropsychologist which was arranged by his employer. He had been assessed by Dr Guerra. His MOCA was 15. Blood work -extensive was negative (including heavy metals). Family history:none ADL's normal, unchanged IADL's needs help with complex tasks MRI 2021: No evidence of an acute intracranial process or intracranial mass. Severe generalized volume loss. Hippocampal volumes at the first percentile when compared to age matched normal controls by quantitative analysis. Mild white matter disease which is nonspecific but likely reflective of chronic microvascular ischemia. No evidence of parenchymal microhemorrhages by MRI. 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 2 children. Social History Tobacco Use Smoking status: Never Smokeless tobacco: Never Substance Use Topics Alcohol use: Not Currently Social History reviewed by Lorri Plascencia MD PAST MEDICAL HISTORY Diagnosis Date COVID-19 virus infection 04/2020 DM2 (diabetes mellitus, type 2) (HCC) GERD (gastroesophageal reflux disease) HLD (hyperlipidemia) Vital Signs: There were no vitals taken for this visit. Allergies: ALLERGIES No Known Allergies Medications: Current Outpatient Medications on File Prior to Visit Medication Sig CPAP/BIPAP/OTHER Type .CPAPSettings into a note to see current settings/supplies/DME information. aspirin, enteric coated (ASPIRIN, ENTERIC COATED) 81 mg EC tablet once daily. omeprazole (PRILOSEC) 20 mg capsule 40 mg once daily. oxaprozin (DAYPRO) 600 mg tablet as needed. simvastatin (ZOCOR) 20 mg (more content not included)... [facility] 08-11-2022 Instructions Lorri Plascencia MD - 08/11/2022 3:36 PM EST As a result of today's evaluation and discussion, we ordered these tests: -A lumbar puncture to test your spinal fluid for proteins common in neurodegenerative diseases like Alzheimer's. This is a simple, low risk procedure that usually takes 10-15 minutes. It would be best to have it done here and it takes about a month to get the results back. Please schedule a follow up appointment at that time to review those. These are our recommendations: Aricept 5 mg with breakfast. Please schedule next visit with Lorri Plascencia MD, PhD in person or virtual after lumbar puncture after testing To schedule testing and visits please call: [phone]. If you have new, unexpected concerns in between visits please call our office at [phone] ( you will be able to reach one of our nurses). [facility] fax [phone] Ways to keep your brain healthy: Follow up regularly with your primary care and other providers to ensure your vascular risk factors (blood pressure, blood sugar, sleep apnea, and cholesterol levels, etc.) are well controlled. Eat a healthy diet, foods that are good for your heart are also good for your brain. It is also important to drink plenty of water to stay hydrated. Exercise - as little as 20 minutes of exercise per day (150 minutes per week) - has been shown to have a positive effect on memory and cognitive function. Maintain an active social life. Get 7-8 hours of sleep per night. If you nap during the day, try to keep napping to a regular schedule. Maintain a predictable and regular daily routine. Try learning new hobbies, games, or skills. Keep your brain active with reading, puzzles, and games. Please refer to healthybrains.org website. It provides evidence based education on diet, exercise and activities that have benefit for memory. MIND Diet guidelines: - Eat 1/2 cup berries, especially blueberries and strawberries, at least 2x per week. - Eat 1 handful (1/4 cup) nuts at least 5x per week. Include walnuts. - Eat 100% whole grains 3x per day (brown rice, wild rice, black rice, quinoa, barley, bulgur, farro, rolled oats, steel cut oats, amaranth, spelt, millet, wheat berries). - Eat 1-2 cups of leafy greens at least 6x per week (spinach, arugula, kale, mustard greens, theodora greens, dandelion greens, deyanira lettuce). - Eat at least 1 other vegetable (other than dark leafy greens) every day. - Eat 1/2 cup beans or lentils at least 3x per week. - Eat fish at least once per week. Choose low mercury fish: salmon, sardines, anchovies, fernandez, halibut, scallops. Avoid fried fish and fish high in mercury (swordfish, Brazilian sea martinez, orange roughy, ahi tuna, albacore (white) tuna). Choose light/skipjack tuna instead of white tuna, and limit to 2 servings/week because it has some mercury. - Eat chicken at least 2x per week. - Extra virgin olive oil is the primary oil used at home for cooking and on salads. - Limit margarine and butter to less than 1 Tbsp per day. - Limit red meat and processed meats to less than 4x per week. Red meat: beef, pork, noriega, venison, veal, bison. Processed meats: nevarez, hotdogs, salami, sausage, pepperoni, pastrami, cold cuts, ham - Limit sweets, candy, and pastries to less than 5x per week. - Limit cheese to 1 serving per week or less. 1 serving = 1 ounce. - Limit alcohol to 1 drink per day for women and 2 drinks per day for men. - Avoid fried foods and fast foods. Other sources of information and support: When there is a diagnosis of memory problems, no matter the type, we encourage families to educate themselves, learn communication tips, and learn ways to adjust expectations over time. There are many resources available online. Three excellent resources are: The Alzheimer's Association (web site: alz.org/garber) available 24 hours a day, 7 days per week. Contact: Local: ; Toll free: 410.506.6424 Family Caregiver [place] (web site: Caregiver.org) MARLEEN Hawkins-- a secure online solution for quality information, support, and resources for family caregivers. Contact: Toll-free number: 411.382.1610 Alzheimers.gov - Find Alzheimer disease and related dementias information, resources, research and more. documented in this encounter [facility] 08-11-2022 History of Present illness Narrative Images from the original note were not included. Noé Jeffery [address] [place] [id number] August 11, 2022 Time: 2:35 PM [facility] OUTPATIENT VISIT TYPE New Patient Visit Virtual Virtual visit with Patient and family members Chief complaint: poor memory, forgetfulness SUBJECTIVE: Noé Jeffery is a 57 year old male assessed today for report initially referred for cognitive complaints. Results of previously ordered diagnostic studies, previous records and imaging studies were reviewed and summarized. My final recommendations will be communicated back to the requesting physician by way of shared Medical record or letter to requesting physician via US mail. Patient did not think he had memory issues until September 2021 when his work noticed an error and had him undertake testing that showed cognitive impairment. He has not been working since that time. 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 He recalls forgetting a clip/tie for his gun one day. He also failed firearm safety training which is required every months. He states he is still able to perform ADLs at home and still able to work in his other job with [employer] systems. However, he has noticed that he can't count backwards or do math as well as in the past. 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 Patient notes that perhaps he can be forgetful and has to pause to think about getting an object at times but he has no trouble with finances, driving, or remembering his medicines. In retrospect, notes that perhaps patient did have more forgetfulness starting in 2018 after a routine colonoscopy was c/b perforated bowel leading to sepsis, shock, and a month of hospitalization. Symptoms perhaps gradually worsened until work noticed that it was affecting patient's performance. She does note that patient has been frustrated about his symptoms There is no known family history of neurodegenerative conditions. Patient had quit drinking alcohol 17 years ago and denies other drug use. does note that patient has snored as long as they've been . She has witnessed apneic episodes. Sometimes patient will physically get up because of them though patient does not recall these episodes. They do sleep in separate room. Patient notes he did have a sleep study a few years ago but no interventions were done afterwards. Both patient and has noticed declining hearing. Patient would like to know what is going on with his symptoms and if he'll be able to count backwards again. No significant behavioral symptoms noted today. Patient reports memory impairment which had been gradually progressive. Specific concerns include poor recall for recent events, misplacing items, conversations, and intended tasks. He is more reliant on compensatory strategies. Patient is on CPAP. Patient had been evaluated before by Neuropsychologist which was arranged by his employer. He had been assessed by Dr Guerra. His MOCA was 15. Blood work -extensive was negative (including heavy metals). Family history:none ADL's normal, unchanged IADL's needs help with complex tasks MRI 2021: No evidence of an acute intracranial process or intracranial mass. Severe generalized volume loss. Hippocampal volumes at the first percentile when compared to age matched normal controls by quantitative analysis. Mild white matter disease which is nonspecific but likely reflective of chronic microvascular ischemia. No evidence of parenchymal microhemorrhages by MRI. 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 2 children. Social History Tobacco Use Smoking status: Never Smokeless tobacco: Never Substance Use Topics Alcohol use: Not Currently Social History reviewed by Lorri Plascencia MD PAST MEDICAL HISTORY Diagnosis Date COVID-19 virus infection 04/2020 DM2 (diabetes mellitus, type 2) (HCC) GERD (gastroesophageal reflux disease) HLD (hyperlipidemia) Vital Signs: There were no vitals taken for this visit. Allergies: ALLERGIES No Known Allergies Medications: Current Outpatient Medications on File Prior to Visit Medication Sig CPAP/BIPAP/OTHER Type .CPAPSettings into a note to see current settings/supplies/DME information. aspirin, enteric coated (ASPIRIN, ENTERIC COATED) 81 mg EC tablet once daily. omeprazole (PRILOSEC) 20 mg capsule 40 mg once daily. oxaprozin (DAYPRO) 600 mg tablet as needed. simvastatin (ZOCOR) 20 mg tablet daily at bedtime. No current facility-administered medications on file prior to visit. Mental Status Exam as per Report and virtual assessment: Patient presents with fair grooming and behavior. Euthymic. Thought process is linear and logical. No evidence for thought content or perception abnormalities today. Insight and judgement fair Risk assessment: Risk factors: Recent deterioration of health Chronic illness Protective factors: Future oriented. No substance use. No past psychiatric history. No suicidal ideations neither plan nor h/o attempts. Good support system. Imminent risk for suicide low. Neurological Exam Reportedly and as per virtual assessment: patient is oriented to place, person and partially to time. Speech is well articulated impoverished though. No overt focal neurological deficit. No gait difficulties. IMPRESSION and ASSESSMENT: Major Neurocognitive Disorder. R/o Alzheimer's disease. PLAN: - Obtain results of NPT. - LP and CSF analysis. - Aricept 5 mg daily with food. - Maintain current drug regimen. - Medication renewed as per Patient's request. - Maintain physically, socially and cognitively healthy lifestyle. - Schedule in person report visit with Temo 3-4 weeks after LP. The meaning of proposed diagnosis discussed and explained in details. Rationale behind medication, mechanisms of action and potential side effects discussed at length. The need for follow-ups underlined. I stressed the importance of mental and physical activity in preserving brain health. Details of the plan and instructions discussed at length. Patient expressed understanding of the details and are willing to follow all the recommendations. All the questions answered and concerns addressed. Today's session was combined as well with psychiatric therapeutic intervention of a supportive type. Fears and concerns were validated. Support and reassurance provided. I spent a total of 60 minutes on an encounter as above, reviewing Patient records, education and ordering further testing as well as coordinating care. . Lorri Plascencia MD, PhD Geriatric Psychiatry [facility] CC: 1. No primary care provider on file., (fax) None documented in this encounter [facility] 07-22-2022 Note HNO ID: [id number] Author: Lorri Plascencia MD Service: ? Author Type: Physician Type: Progress Notes Filed: 07/22/2022 11:10 AM Note Text: No show. Connection aborted after 15 min. of waiting online [facility] 07-22-2022 History of Present illness Narrative No show. Connection aborted after 15 min. of waiting online [facility] documented in this encounter [facility] 05-07-2022 Miscellaneous Notes Radiology Service Progress Note PATIENT NAME: Noé Jeffery DATE OF SERVICE: May 07, 2022 TIME: 1:31 PM PATIENT IDENTITY VERIFICATION COMPLETED USING TWO (2) IDENTIFIERS: Name and Date of confirmed by patient verbally and Name and Date of confirmed by identification band. FALL SCREENING: Has the patient had 2 falls in the last year or 1 fall with injury or currently using an Ambulatory Assistive Device (Walker, Cane, Wheelchair, Crutches, etc.)? No PATIENT GENDER DATA: Male PATIENT RELEVANT IMPLANT DATA REVIEWED: Yes RADIOLOGY DEPARTMENT: MR; Exam(s) Completed: Head: Routine Brain PERIPHERAL IV DATA: Not applicable SIGNED BY: Nicole Huffman automotive welder May 07, 2022 1:31 PM documented in this encounter [facility] 04-30-2022 Instructions Roosevelt Merlos MD - 04/30/2022 12:04 PM EST PAP Therapy Initiation - Will start Will start Auto Bilevel PAP device with IPAP max 25, EPAP min 10 cmH2O, with pressure support 4-8 cmH2O. Close clinical and data download in a month to ensure resolution of events. Should the AHI remain elevated, the patient should return for a full night dedicated Bilevel PAP titration beginning at 16/10 cmH2O with a low threshold for a backup rate for persistent central apneas. Or consider ASV titration if LVEF >50. - I will have a prescription sent to a [employer]) company - [facility] who will be calling you in the next 1-2 weeks or so. Please call them directly or us if you do not hear from them in this time frame. - You should be eligible for new supplies approximately every 3-6 months, depending on your insurance coverage. - If your mask doesn't fit well, call the [employer] company before 30 days are up to get a new mask without an additional charge. - Insurance requires regular usage and periodic office follow ups for PAP therapy, to continue to cover supplies. - Follow up in 2 months in the office. Recommend scheduling this appointment now to ensure the best time for you. [facility] Requirements - Your insurance requires a [id number] follow up visit within a 31-90 day period after starting BiPAP. - Your insurance requires compliance with BiPAP, which is at least 4 hours per night for 70% of the time. This must be done over a 30 day period and must occur within the initial 31-90 day period after starting BiPAP. - Your insurance also requires at least yearly follow ups to continue to pay for BiPAP supplies. documented in this encounter [facility] 04-30-2022 History of Present illness Narrative Images from the original note were not included. [facility] New Patient Evaluation PATIENT NAME: Noé Jeffery DATE OF SERVICE: April 30, 2022 CONSULTING PROVIDER: Narciso Guerra [address] [facility] [address] REASON FOR CONSULT: Narciso Guerra sends the patient for an opinion about SHELBY. My findings and recommendations will be transmitted electronically via shared medical record to the consulting provider. HPI: Noé Jeffery is a 56 year old male with history of mild cognitive impairment who presented from neurology clinic after having a polysomnogram that showed severe obstructive sleep apnea. Sleep-related history: SLEEP-WAKE SCHEDULE He is a self-described morning person. Bedtime: 10 PM. He does not have a hard time falling asleep. Wake time: 6 AM, with an alarm. After falling asleep: he wakes up 7 time(s) per night, because of choking or gasping for air and snoring or snorting, waking up choking and gasping for air. On weekends, he maintains the same sleep schedule. Average total sleep time (in a 24 hour period): 10 hours. SLEEP-RELATED DETAILS Preferred sleep position: back Breathing disturbances and other behaviors during sleep: snoring, stopping breathing during sleep, moving around a lot, and acting out dreams( pretty much for 27 years) involves talking, and flailing movements of the hands. Her was with him but mentions that its unclear what exactly he says as he usually wakes him up. He is usually confused in the beginning but then goes back to sleep. Unclear of the time of the night it is predominant and if his eyes are open. He does not usually recall about the dreams or what he was going through before he is woken up. Bruxism: Not now as he wears a mouth guard GERD or aspiration: Yes Waking up with heart pounding or racing: Yes Anxiety or rumination: No He does not report having an urge to move the legs in the evening (when resting) that is accompanied or caused by uncomfortable and/or unpleasant sensations in the legs. He has not been told that he has leg kicking during sleep. He denies any history of parasomnias but does mention him acting out dreams Daytime sleepiness is not a problem. He does not report sleep paralysis or sleep-related hallucinations or cataplexy . WAKE-RELATED DETAILS He does not work. He does have difficulty with memory or concentration. He denies falling asleep or dozing off when driving. He does not take naps. He does drink 3-4 caffeinated beverages per day, first at 7 and then last at 6 pm. He has lost 12 pounds since September. Patient Questionnaires Sleep Scores Sleep Questions 04/28/2022 Reason for visit: Sleep apnea Average hours slept in 24 hours: 8 Accidents or near accidents due to drowsy drivin [place] Sleepiness Scale 04/28/2022 Score Incomplete PROMIS CAT Sleep Disturbance 04/28/2022 PROMIS Sleep Disturbance T-Score 65 (moderate) PHQ-9 04/28/2022 Score 14 PROMIS Global Health - (T-Scores - the mean of general population = 50. Five points is a clinically meaningful difference.) 04/23/2022 Physical T-Score 54.1 Mental T-Score 41.1 PAST TREATMENTS: None PRIOR SLEEP STUDIES: A Polysomnogram performed on 04/25/22 revealed an AHI of 47.7; supine index of 47.7; REM index of 41.4, PLM index of 1.6, PLM arousal index of 0.5, and the oxygen saturation was below 90% for 0.4% of the study. Severe sleep apnea exacerbated. 100% of the apneas recorded were central in nature, however hypopneas were mixed, with significant portion being obstructive in nature. 2. None of the tested PAP settings normalized the apnea-hypopnea index (AHI). The supine AHI was elevated at all tested settings. Limited REM sleep, (3.5 minutes) was elevated and only recorded at Bilevel PAP 10/06 cmH2O. 3. CPAP and Bilevel PAP were used during the study. The central-apnea index (NESTOR) was normalized with Bilevel PAP setting 12/08 cmH2O and resurfaced again during Bilevel PAP 15/10 cmH2O. 4. Sleep related hypoventilation was noted: The ETCO2 value during sleep was =10 mmHg higher than the baseline wake CO2 value(s) to a value of =50 mmHg for 10 or more minutes during sleep. There may be another underlying cardiopulmonary disorder that explains these findings. Further clinical correlation is advised. 5. Hypercapnia was noted: hypercapnia during wakefulness with end tidal CO2 (ETCO2) >45mmHg worsening during sleep to a maximum ETCO2 value of 58 mmHg. There may be an underlying cardiopulmonary or neurological disorder and/or obesity that explains these findings. Further clinical correlation is advised. 6. The patient endorses symptoms suggestive of restless legs syndrome (RLS) on the pre-study questionnaire. PLM index was only 1.6. As RLS remains a clinical diagnosis, further clinical correlation is advised. 7. Fragmented sleep was noted during the study. Total sleep time (TST) was 220 minutes resulting in a sleep efficiency of 50.8%. OTHER RELEVANT LABS AND STUDIES: PAST MEDICAL HISTORY Diagnosis Date COVID-19 virus infection 04/2020 DM2 (diabetes mellitus, type 2) (HCC) GERD (gastroesophageal reflux disease) HLD (hyperlipidemia) No past surgical history on file. ACTIVE PROBLEM LIST Bilateral High Frequency Sensorineural Hearing Loss Tinnitus, Bilateral Allergies As of Date: 04/30/2022 (No Known Allergies) Fully Assessed 04/30/2022 CURRENT MEDICATIONS: aspirin, enteric coated (ASPIRIN, ENTERIC COATED) 81 mg EC tablet once daily. omeprazole (PRILOSEC) 20 mg capsule 40 mg once daily. oxaprozin (DAYPRO) 600 mg tablet as needed. simvastatin (ZOCOR) 20 mg tablet daily at bedtime. Review of Systems SOCIAL HISTORY: Social History Tobacco Use Smoking status: Never Smokeless tobacco: Never Substance Use Topics Alcohol use: Not Currently FAMILY HISTORY: There is no family history of sleep disorders. PHYSICAL EXAMINATION: Vital Signs: BP 139/91 (BP Site: Right Arm) Pulse 82 Wt 86.2 kg (190 lb 1.6 oz) SpO2 97% BMI 31.63 kg/m PHYSICAL EXAM: General appearance: Overall pleasant. Mental status: Overall alert and oriented Neck circumference: 15 inches Skin: No rashes Eyes: Extraocular movements intact ENT : Nasal congestion absent, Nasal valve incompetence absent. Posterior airspace: Harris tongue position 4, retrognathia absent. Overbite absent. High arched palate absent. Tongue scalloping/ridging absent. Uvula: Midline Chest: Regular S1 and S2, Lungs clear to auscultation Abdomen: soft, nontender Extremities: No rashes and swelling Neuro: Grossly intact motor and sensory system IMPRESSION/PLAN: Obstructive sleep apnea Patient is a 56-year-old male with history of cognitive impairment, snoring, waking up choking and gasping for air, multiple awakenings throughout the night, nocturnal enuresis presented to the sleep clinic after a split-night study that showed severe obstructive sleep apnea followed by a Pap titration. In the PAP titration including CPAP as well as BiPAP none of the pressures were able to adequately control his apnea hypopnea and arousal indexes. At 12/8 his apnea-hypopnea index was in the mild range however he did not have any REM sleep during that time. At this point of time recommended him an auto bilevel Pap device and following the compliance data within 2 months. At that point if his AHI is not well controlled, we would bring him in the lab again for bilevel PAP titration. - Will start Auto Bilevel PAP device with IPAP max 25, EPAP min 10 cmH2O, with pressure support 4-8 cmH2O. Close clinical and data download in a month to ensure resolution of events. Should the AHI remain elevated, the patient should return for a full night dedicated Bilevel PAP titration beginning at 16/10 cmH2O with a low threshold for a backup rate for persistent central apneas. Or consider ASV titration if LVEF >50. - I will have a prescription sent to a [employer] (durable medical equipment) company - [facility] who will be calling you in the next 1-2 weeks or so. Please call them directly or us if you do not hear from them in this time frame. - You should be eligible for new supplies approximately every 3-6 months, depending on your insurance coverage. - If your mask doesn't fit well, call the DME company before 30 days are up to get a new mask without an additional charge. - Insurance requires regular usage and periodic office follow ups for PAP therapy, to continue to cover supplies. - Follow up in 2 months in the office. Recommend scheduling this appointment now to ensure the best time for you. Roosevelt Merlos PGY-4 Sleep fellow [facility] I have supervised and discussed the patient case with the Sleep Medicine Fellow including interviewing the patient in person and have updated the electronic medical record where necessary. I agree with the history, physical, impression and recommendations as documented. Gera Cardona DO, CBSM, ABSM Clinical Staff Sleep Medicine [facility] [address] [facility] [address] [place] [address] documented in this encounter [facility] 04-26-2022 History of Present illness Narrative Sleep Study Check-In Documentation Date: April 26, 2022 Name: Noé Jeffery Patient was accompanied by Spouse. Location: IC Latex allergy: No Tape allergy: No Current medications were reviewed with the patient:Yes Sleep aid taken by patient for the sleep study: Not applicable Name of sleep aid: Not Applicable Procedure was explained to the patient and all questions were answered. PAP treatment discussed and shown to patient: Yes If PAP used enter mask info: Mask Name RESMED Make AIRFIT N20 MaskTypeFull Face Mask SizeMedium Marcus Sharp Used No Knowledge Program (KP): KP was not completed in epic by patient and accepted Study type: Split Study-Polysomnogram with CPAP titration Adverse Event: No (If yes create a new abstract) SERS Event: No Comments: Patient was advised to follow up with their ordering provider regarding test results [facility] April 25, 2022 Standing PSG Orders signed in the last 90 days None Future PSG Orders signed in the last 90 days Ordered Auth. provider POLYSOMNOGRAM (PSG) [[id number]] 04/22/22 Narciso Guerra MD Assoc. diagnoses: Cognitive changes [R41.89], Snoring [R06.83] Q: Indications - Select All That Apply: A: Obstructive sleep apnea Q: STOP-BANG conditions - Select All That Apply: A: GENDER = male A2: AGE > 50 A3: SNORING that is loud or disruptive A4: OBSERVED sleep apnea Q: Comorbidities: A: Cognitive or physical impairment Q: Is the patient non-ambulatory or will they be accompanied by a caregiver?: A: No Q: Current use of supplemental oxygen during sleep period?: A: No Q: Add supplemental oxygen if needed per sleep lab policy?: A: Yes Q: Is this a repeat Sleep Study?: A: No All Prior Sleep Studies (past 365 days) Some values may be hidden. Unless noted otherwise, only the newest values recorded on each date are displayed. Sleep Studies POLYSOMNOGRAM (PSG) Future Expected: Expires: 04/22/23 BMI Readings from Last 2 Encounters: 04/22/22 : 31.65 kg/m 04/22/22 : 31.95 kg/m PAST MEDICAL HISTORY Diagnosis Date COVID-19 virus infection 04/2020 DM2 (diabetes mellitus, type 2) (HCC) GERD (gastroesophageal reflux disease) HLD (hyperlipidemia) The medical record was reviewed to determine if the proposed sleep study conforms to the AASM Practice Parameters for the Indications for Polysomnography and Related Procedures, or if the sleep study is indicated for other reasons. Indications for study: SHELBY suspected without comorbid medical or sleep disorders Sleep study to be performed: Polysomnogram Special instructions: None-follow laboratory protocol Target REM/supine sleep Add EtCO2 or Transcutaneous CO2 if available Imama Ahmad, MD - Sleep Medicine Staff Note: I have read the above protocol, edited as needed, and agree to the plan. Roosevelt Merlos MD 7:01 PM, 04/25/2022 Sleep Medicine Staff Note: I have read the above protocol, edited as needed, and agree to the plan. Douglas Nielson MD 8:46 PM 04/25/2022 documented in this encounter [facility] 04-22-2022 History of Present illness Narrative [facility] [place] [place] AUDIOLOGIC EVALUATION REPORT Name: Noé Jeffery [facility]#: [id number] Date of Service: 04/22/2022 Date of : 1965 Age: [age] year old Referred by: Narciso Gurera [address] [facility] [address] Referred for: Evaluation of the cause of disorder of hearing, tinnitus, or balance. Referral documented: In an order in [facility] Patient's major complaints: Noé reported he feels he has difficulty hearing/understanding speech particularly his . He Also, he feels his understanding, comprehension is a problem. History of intermittent tinnitus ringing in both ears for the last 1 year. Noé reported he had COVID April 2021. The patient reported a past history of noise exposure: occupational ([employer] x 8 years). Noé Jeffery was seen for an initial audiologic evaluation. See SmartForm Audiogram for additional reported history and symptoms. IMPRESSIONS RIGHT EAR: Did not test. LEFT EAR: Did not test. AUDIOLOGIC EVALUATION Following is a brief interpretation of the obtained findings from the audiologic evaluation. Refer to the Auditory Test Record for complete audiometric results. The patient was counseled about the test findings and appropriate audiologic recommendations were made. SUMMARY: Audiogram can be viewed under Forms/Audiology/SmartForm. THE AUDIOGRAM CAN BE VIEWED UNDER ADDITIONAL DOCUMENTATION - SMARTFORMS: AUDIOMETRY below. OTOSCOPY RIGHT EAR: Otoscopic inspection revealed cerumen occluding the ear canal, thus, the Tympanic Membrane could not be fully visualized. LEFT EAR: Otoscopic inspection revealed excessive cerumen in the ear canal that was non-occluding, however, the Tympanic Membrane could not be fully visualized. TYMPANOMETRY Description of procedure: This test is an objective evaluation of middle ear function. CPT code: 69218 RIGHT EAR: Tympanogram that was flat, with no identifiable peak and reduced TM mobility consistent with a conductive pathology (wax). LEFT EAR: Normal ME pressure and TM compliance (mobility). ACOUSTIC REFLEXES Description of procedure: This test is an objective measure of auditory and facial nerve pathways. CPT code: 93709, 37101 RIGHT EAR PROBE EAR: (ipsi right stimulus ear; contralateral left stimulus ear): Acoustic Reflex Pattern Did not test Acoustic Reflex Decay (left stimulus ear): Did not test. LEFT EAR PROBE EAR: (ipsi left stimulus ear; contralateral right stimulus ear): Acoustic Reflex Pattern Did not test Acoustic Reflex Decay (right stimulus ear):Did not test. PURE TONE AUDIOMETRY AND SPEECH TESTING Description of procedure: This test is an objective evaluation hearing sensitivity via air and bone conduction and speech recognition testing. CPT code:36289 RIGHT EAR: Hearing Sensitivity: Did not test. Word Recognition Score: Did not test. LEFT EAR: Hearing Sensitivity: Did not test. Word Recognition Score: Did not test. RECOMMENDATIONS Medical follow up for removal of bilateral impacted cerumen. Patient will see [facility] today. Hearing Test after #1. Juana Horta, ARIE/A Clinical Jig Borer JIMENEZ Abbrev- iation Definition Degree of hearing sensitivity dB range WNL within normal limits WNL 0 - 20 SNHL sensorineural hearing loss Mild 20-40 CHL conductive hearing loss Moderate 40-55 MHL mixed hearing loss Moderately-Severe 55-70 WRS word recognition score Severe 70-90 ME middle ear Profound 90 + TM tympanic membrane documented in this encounter [facility] 04-22-2022 History of Present illness Narrative This note was created using [employer] [place]. Subjective Noé Jeffery is a 56 year old male. Patient here today reporting his ears need washed out. No other concerns today.BP 143/96 upon arrival. The history is provided by the patient. Review of Systems Constitutional: Negative for chills, fatigue and fever. HENT: Positive for hearing loss. Negative for congestion, ear discharge, ear pain, rhinorrhea, sinus pressure, sinus pain and sore throat. Eyes: Negative for pain, redness and itching. Respiratory: Negative for cough. Objective BP 143/96 Pulse 98 Temp 36.8 C (98.3 F) (Temporal) Wt 86.3 kg (190 lb 3.2 oz) SpO2 100% BMI 31.65 kg/m Physical Exam Constitutional: General: He is not in acute distress. Appearance: He is not ill-appearing, toxic-appearing or diaphoretic. HENT: Head: Normocephalic. Right Ear: Ear canal and external ear normal. There is impacted cerumen. Left Ear: Ear canal and external ear normal. There is impacted cerumen. Ears: Comments: Post ear lavage, left canal erythematous and tender TM B/L looked ok Nose: No congestion or rhinorrhea. Mouth/Throat: Pharynx: No oropharyngeal exudate or posterior oropharyngeal erythema. Eyes: General: Right eye: No discharge. Left eye: No discharge. Conjunctiva/sclera: Conjunctivae normal. Cardiovascular: Rate and Rhythm: Normal rate. Pulmonary: Effort: Pulmonary effort is normal. Musculoskeletal: General: Normal range of motion. Lymphadenopathy: Cervical: No cervical adenopathy. Skin: General: Skin is warm and dry. Neurological: Mental Status: He is alert. Assessment and Plan (H61.23) Bilateral impacted cerumen (primary encounter diagnosis) Plan: AMBULATORY EAR LAVAGE/IRRIGATION Ear lavage completed per KB Whelan ((R03.0) Elevated blood pressure reading without diagnosis of hypertension Plan: check BPs at home (patient reports home BP monitor) If continued >140/90 follow up with PCP. Watch sodium intake. (H60.502) Acute otitis externa of left ear, unspecified type Plan: tjsecvlh-leqpfzoyp-vvjogkoalabuo e (CORTISPORIN) 3.5-10,000-1 mg/mL-unit/mL-% otic suspension Use as directed Follow up with PCP if symptoms worsen or do not improve Brenda Blanco APRN.FIRE MANAGEMENT SPECIALIST April 22, 2022 documented in this encounter [facility] 04-22-2022 Instructions Brenda Blanco APRN.CNP - 04/22/2022 4:23 PM EDT Cerumen Patient Care Instructions: You were seen for ear wax (cerumen). Your ear was impacted with it. This means the wax partly or fully blocked the ear canal. This can happen on its own. One common cause is putting Q-tips in the ear canal. The Q-tips are supposed to clean them out. This often pushes the wax deeper into the ear. This causes the wax to keep building up. Earwax is naturally produced by your body. It helps protect your ear from dirt and debris ( junk ). Ears are generally self-cleaning. Q-tips should NOT be used to clean the ear canal! You can get ear wax removal kits at the pharmacy or drug store. You don't need a prescription for these kits. This allows you to soften the wax and rinse the ear canal at home.Please follow the package instructions. The wax may have been irrigated today in the medical office. A special tool may have been used to manually remove the wax. The doctor has special training for using these devices. DO NOT try this at home. The wax was removed from your ear. This can be irritating to the ear canal. It may be sore for a few hours. It may even bleed a little. This is normal. It should go away quickly. YOU SHOULD SEEK MEDICAL ATTENTION IMMEDIATELY, EITHER HERE OR AT THE NEAREST EMERGENCY DEPARTMENT, IF ANY OF THE FOLLOWING OCCURS: Ear drainage is bloody or smells bad. Increasing ear pain. Fever (temperature higher than 100.4 F / 38 C). Any hearing loss. EXTERNAL OTITIS OVERVIEW External otitis is a condition that occurs when the ear canal becomes irritated. The ear canal is the part of the ear that leads from the outer ear to the ear drum. External otitis can develop as a result of an infection, allergy, or skin problem. Swimmer's ear is the name for external otitis that occurs in a person who swims frequently. External otitis is different from otitis media (middle ear infections). When a person says that they have an ear infection, they usually mean that they have otitis media. This article will discuss external otitis that is caused by an infection, as well as ways to prevent future episodes of external otitis. EXTERNAL OTITIS RISK FACTORS Several factors can increase your risk of developing external otitis. Cleaning the ear canal removes ear wax. Ear wax serves to protect the ears from water, bacteria, and injury. Excessive cleaning or scratching can injure the skin, potentially leading to infection. Swimming on a regular basis removes some of the ear wax, allowing water to soften the skin. Bacteria, which normally live in the ear canal, can then enter the skin more easily. Wearing devices that block the ear canals, such as hearing aids, headphones, or ear plugs, can increase the risk of external otitis (if worn frequently) by injuring the skin. EXTERNAL OTITIS SYMPTOMS The most common symptoms of external otitis include: Pain in the outer ear, especially when the ear is pulled or moved Itchiness of the ear Fluid or pus leaking from the ear Difficulty hearing clearly EXTERNAL OTITIS TREATMENT Treatment of external otitis aims to reduce pain and eliminate the infection. In some cases, your healthcare provider will flush out your ear with water and hydrogen peroxide before you begin treatment; this speeds healing by removing skin cells and excess ear wax. Ear drops -- Ear drops are usually prescribed to reduce pain and swelling caused by external otitis. It is important to apply the ear drops correctly so that they reach the ear canal: Lie on your side or tilt your head towards the opposite shoulder. Fill the ear canal with drops. Lie on your side for [address] cotton ball in the ear canal for 20 minutes. Finish the entire course of treatment, even if you begin to feel better within a few days. You should begin to feel better within 36 to 48 hours of starting treatment. If your pain worsens or does not improve within this time period, call your healthcare provider. Pain medication -- If you have bothersome ear pain, you can take a non-prescription pain medication. Avoid getting ears wet -- During treatment, you should avoid getting the inside of your ears wet. While showering, you can place a cotton ball coated with petroleum jelly in the ear. However, you should not swim for 7 to 10 days after starting treatment. Avoid wearing hearing aids and in-ear headphones until pain improves. EXTERNAL OTITIS PREVENTION The old saying, Don't put anything smaller than your elbow in your ear to clean the ear is true. The ear is self-cleaning; fingers, towels, cotton-tipped applicators, and other devices should not be used to clean the inside of the ears. If you feel that you need to clean excessive wax from your ears, talk to your healthcare provider first. S/he may want to examine your ears to see if the ear wax is excessive. It is normal to have some ear wax (also called cerumen). If you have an excessive amount of ear wax, talk to your healthcare provider about safe ways to clean your ears. If you swim frequently, experts recommend the following tips to reduce the chance of developing external otitis. Shake your ears dry after swimming Blow dry your ears on a low setting, holding the dryer 12 inches away. Use ear drops after swimming to prevent ear infections; these are available at most pharmacies without a prescription. Consider wearing ear plugs made for swimming. documented in this encounter [facility] 07-27-2020 Note MR#: [id number] I [facility] Pt. Name: Noé Jeffery Admitted: 07/24/2020 Discharged: 07/26/2020 Date of : 1965 Physician: Naya Izaguirre M.D. DISCHARGE SUMMARY RESIDENT PHYSICIAN: Ayanna Ga M.D. PRIMARY DIAGNOSIS: Postoperative ileus. HOSPITAL COURSE: The patient is a 55-year-old male, who presented with nausea and vomiting. He underwent a [facility] hernia repair on 07/21/2020, which was complicated by a postop ileus. He was tolerating diet and discharged home, however, after returning home he began to have nausea and vomiting and returned the next day to the ED. Upon admission, NG tube was placed, which returned 550 mL of output. The patient was given Dulcolax suppository and had a bowel movement that night. This morning, the patient was tolerating a clear liquid diet, advanced to full liquids. The patient has been ambulating in the nobles, denies any pain, he is tolerating a regular diet, and able to be discharged home today with instructions to followup as needed. The patient was seen and examined on date of discharge as this discharge summary is in conjunction with any daily progress notes from date of discharge. CONSULTATIONS: None. SIGNIFICANT DIAGNOSTIC STUDIES: None. DISCHARGE MEDICATIONS: All home medications restarted, no new medications prescribed. ACTIVITY: As tolerated. DIET: Regular. FOLLOWUP APPOINTMENTS: Followup with Dr. Izaguirre in 1 week for a postop check. DISCHARGE DISPOSITION: Home. Electronically Signed by: Naya Izaguirre M.D. 07/28/2020 10:06 A ____ Naya Izaguirre M.D. I personally saw this patient on the day of the encounter, performed the jimenez portion(s) of the service and participated in the management and confirm the resident's documentation. Please note there may be an additional personal documentation from me. Date Dict: 07/26/2020/03:37 P/Ayanna Ga MD Date Trans: 07/27/2020 03:32 A/patricia [id number] cc: Paul Lopez M.D. [address] [id number] [facility] 07-24-2020 Note MR#: [id number] [facility] [facility] Admitted: 07/21/2020 Discharged: 07/23/2020 Date of : 1965 Physician: Naya Izaguirre M.D. DISCHARGE SUMMARY RESIDENT PHYSICIAN: Ayanna Ga M.D. PRIMARY DIAGNOSIS: Ventral hernia. SECONDARY DIAGNOSIS: History of colonic perforation. PROCEDURE PERFORMED: Da Vinic hernia repair. HOSPITAL COURSE: The patient is a 55-year-old male with a history of colonic perforation and colostomy creation and takedown, who presented for a planned ventral hernia repair. The patient underwent ventral hernia repair on 07/21/2020. The patient tolerated the procedure well, was extubated in the OR, and transferred to PACU in stable condition. Postoperative recovery was uneventful. The patient tolerated advancement of diet without abdominal pain, nausea, or vomiting. On the day of discharge, passing gas, tolerating regular diet, pain was well controlled on oral medications. He was ambulating in halls without difficulty. On postoperative day #2, the patient was deemed stable for discharge to home. The patient was seen and examined on the day of discharge and this discharge summary is in conjunction with any daily progress notes from the day of discharge. CONSULTS: None. PROCEDURES: Da Lorena hernia repair. DISCHARGE MEDICATIONS: Restarted all home medications. Oral Tylenol as needed, aspirin 81 mg daily, omeprazole 20 mg daily, and oxaprozin 1200 mg daily. ACTIVITY: Ambulate as tolerated. DIET: Regular diet. FOLLOWUP APPOINTMENTS: The patient given instructions to call the office to schedule a followup appointment in 2 weeks. Electronically Signed by: Naya Izaguirre M.D. 07/24/2020 11:26 A ____ Naya Izaguirre M.D. I personally saw this patient on the day of the encounter, performed the jimenez portion(s) of the service and participated in the management and confirm the resident's documentation. Please note there may be an additional personal documentation from me. Date Dict: 07/23/2020/06:08 P/Ayanna Ga MD Date Trans: 07/24/2020 10:00 A/patricia [id number] cc: Paul Lopez M.D. [address] [id number] [facility] Evaluation note Diagnosis Bilateral impacted cerumen- Primary Impacted cerumen Elevated blood pressure reading without diagnosis of hypertension Acute otitis externa of left ear, unspecified type [facility] Diagnosis Bilateral impacted cerumen- Primary Impacted cerumen [facility] Diagnosis Sleep apnea, unspecified type- Primary Sleep hypopnea Other sleep disturbances [facility] Diagnosis SHELBY (obstructive sleep apnea)- Primary Obstructive sleep apnea (adult) (pediatric) documented [facility]* Diagnosis Memory loss [facility]* Diagnosis Memory loss- Primary [facility] Diagnosis Memory loss- Primary Encounter for lumbar puncture documented in this encounter [facility] note* Diagnosis Alzheimer's disease (HCC)- Primary Alzheimer's disease documented in this encounter [facility] note* Diagnosis Obstructive sleep apnea- Primary Obstructive sleep apnea (adult) (pediatric) Primary central sleep apnea Hyperlipidemia, unspecified hyperlipidemia type documented in this encounter [facility] note* Diagnosis Alzheimer's disease (HCC)- Primary Alzheimer's disease documented in this [facility]* Diagnosis Research study patient- Primary documented in this encounter [facility] note* Diagnosis Cognitive changes Other signs and symptoms involving cognition documented in this encounter [facility] note* Diagnosis Alzheimer's disease (HCC) Alzheimer's disease documented in this encounter [facility] Summary Purpose Family History No Family History Records FoundNo Family History Records FoundNo Family History Records FoundNo Family History Records FoundNo Family History Records Found Advance Directives No Advanced Directives Records FoundNo Advanced Directives Records FoundNo Advanced Directives Records FoundNo Advanced Directives Records FoundNo Advanced Directives Records Found Reason for Referral Specialty Diagnoses / Procedures Referred By Naseem t Referred To Contact Diagnoses Sleep apnea, unspecified type Sleep hypopnea Procedures CONSULT TO SLEEP MEDICINE - ADULT OFFICE/OUTPATIENT [facility] 60-74 MINUTES Narciso Guerra MD [address] [place] [address] Referral ID Status Reason Start Date Expiration Date Visits Requested Visits Authorized [id number] Authorized PCP Requested Referral 04/28/2022 04/28/2023 1 1 Specialty Diagnoses / Procedures Referred By Contac t Referred To Contact [facility] Diagnoses Alzheimer's disease (HCC) Procedures CONSULT TO SPEECH THERAPY OFFICE/OUTPATIENT [facility] 60-74 MINUTES Lorri Plascencia MD [address] [place] [address] [facility] [address] [address] Referral ID Status Reason Start Date Expiration Date Visits Requested Visits Authorized [id number] Pending Review Auto-Generat ed Referral 11/17/2022 11/17/2023 1 1 Specialty Diagnoses / Procedures Referred By Davidac t Referred To Contact [facility] IMAGING Diagnoses Cognitive changes Procedures MRI 3D POST PROCESSING 3D RENDERING W/INTERP&POSTPROC DIFF WORK STATION Narciso Guerra MD [address] [place] [address] Mr Imaging [facility] Referral ID Status Reason Start Date Expiration Date V isits Requested Visits Authorized [id number] Closed Auto-Generate d Referral 04/22/2022 05/22/2023 1 1 Specialty Diagnoses / Procedures Referred By Naseem araujo Referred To Contact MR IMAGING Diagnoses Cognitive changes Procedures MRI BRAIN WO IVCON MRI BRAIN BRAIN STEM W/O CONTRAST MATERIAL Narciso uGerra MD [address] [place] [address] Mr Imaging [facility] Referral ID Status Reason Start Date Expiration Date V isits Requested Visits Authorized [id number] Closed Auto-Generate d Referral 04/22/2022 06/06/2022 1 1 Additional Source Comments (unrecognized sect ion and content) No Status Records FoundNo Status Records FoundNo Status Records FoundNo Status Records FoundNo Status Records Found INFORMATION SOURCE (unrecogn ized section and content) DATE CREATED AUTHOR 04/15/2021 [facility] DATE CREATED AUTHOR AUTHOR'S ORGANIZ ATION 05/09/2022 [facility] DATE CREATED AUTHOR AUTHOR'S ORGANIZ ATION 10/28/2022 [facility] DATE CREATED AUTHOR AUTHOR'S ORGANIZ ATION 05/24/[address] [facility] DATE CREATED AUTHOR AUTHOR'S ORGANIZ ATION 12/24/2023 [facility] Source Comments (unrecognize d section and content) In the event this informatio n is protected by the Federal Confidentiality of Alcohol and Drug Abuse Patient Records regulations: The Federal rules restrict any use of the information to criminally investigate or prosecute any alcohol or drug abuse patient.[facility] the event this information is protected by the Federal Confidentiality of Alcohol and Drug Abuse Patient Records regulations: The Federal rules restrict any use of the information to criminally investigate or prosecute any alcohol or drug abuse patient.[facility] the event this information is protected by the Federal Confidentiality of Alcohol and Drug Abuse Patient Records regulations: The Federal rules restrict any use of the information to criminally investigate or prosecute any alcohol or drug abuse patient.[facility] the event this information is protected by the Federal Confidentiality of Alcohol and Drug Abuse Patient Records regulations: The Federal rules restrict any use of the information to criminally investigate or prosecute any alcohol or drug abuse patient.[facility] the event this information is protected by the Federal Confidentiality of Alcohol and Drug Abuse Patient Records regulations: The Federal rules restrict any use of the information to criminally investigate or prosecute any alcohol or drug abuse patient.[facility] the event this information is protected by the Federal Confidentiality of Alcohol and Drug Abuse Patient Records regulations: The Federal rules restrict any use of the information to criminally investigate or prosecute any alcohol or drug abuse patient.[facility] Center[facility] the event this information is protected by the Federal Confidentiality of Alcohol and Drug Abuse Patient Records regulations: The Federal rules restrict any use of the information to criminally investigate or prosecute any alcohol or drug abuse patient.[facility] Center[facility] the event this information is protected by the Federal Confidentiality of Alcohol and Drug Abuse Patient Records regulations: The Federal rules restrict any use of the information to criminally investigate or prosecute any alcohol or drug abuse patient.[facility] Center[facility] the event this information is protected by the Federal Confidentiality of Alcohol and Drug Abuse Patient Records regulations: The Federal rules restrict any use of the information to criminally investigate or prosecute any alcohol or drug abuse patient.[facility] Center[facility] the event this information is protected by the Federal Confidentiality of Alcohol and Drug Abuse Patient Records regulations: The Federal rules restrict any use of the information to criminally investigate or prosecute any alcohol or drug abuse patient.[facility] Center[facility] the event this information is protected by the Federal Confidentiality of Alcohol and Drug Abuse Patient Records regulations: The Federal rules restrict any use of the information to criminally investigate or prosecute any alcohol or drug abuse patient.[facility] Center[facility] the event this information is protected by the Federal Confidentiality of Alcohol and Drug Abuse Patient Records regulations: The Federal rules restrict any use of the information to criminally investigate or prosecute any alcohol or drug abuse patient.[facility] Center[facility] the event this information is protected by the Federal Confidentiality of Alcohol and Drug Abuse Patient Records regulations: The Federal rules restrict any use of the information to criminally investigate or prosecute any alcohol or drug abuse patient.[facility] Center[facility] the event this information is protected by the Federal Confidentiality of Alcohol and Drug Abuse Patient Records regulations: The Federal rules restrict any use of the information to criminally investigate or prosecute any alcohol or drug abuse patient.[facility] Center[facility] the event this information is protected by the Federal Confidentiality of Alcohol and Drug Abuse Patient Records regulations: The Federal rules restrict any use of the information to criminally investigate or prosecute any alcohol or drug abuse patient.[facility] Center[facility] the event this information is protected by the Federal Confidentiality of Alcohol and Drug Abuse Patient Records regulations: The Federal rules restrict any use of the information to criminally investigate or prosecute any alcohol or drug abuse patient.[facility] Center[facility] the event this information is protected by the Federal Confidentiality of Alcohol and Drug Abuse Patient Records regulations: The Federal rules restrict any use of the information to criminally investigate or prosecute any alcohol or drug abuse patient.[facility] Center[facility] the event this information is protected by the Federal Confidentiality of Alcohol and Drug Abuse Patient Records regulations: The Federal rules restrict any use of the information to criminally investigate or prosecute any alcohol or drug abuse patient.[facility] Center[facility] the event this information is protected by the Federal Confidentiality of Alcohol and Drug Abuse Patient Records regulations: The Federal rules restrict any use of the information to criminally investigate or prosecute any alcohol or drug abuse patient.[facility] Center[facility] the event this information is protected by the Federal Confidentiality of Alcohol and Drug Abuse Patient Records regulations: The Federal rules restrict any use of the information to criminally investigate or prosecute any alcohol or drug abuse patient.[facility] CenterIn the event this information is protected by the Federal Confidentiality of Alcohol and Drug Abuse Patient Records regulations: The Federal rules restrict any use of the information to criminally investigate or prosecute any alcohol or drug abuse patient.[facility] Center[facility] the event this information is protected by the Federal Confidentiality of Alcohol and Drug Abuse Patient Records regulations: The Federal rules restrict any use of the information to criminally investigate or prosecute any alcohol or drug abuse patient.[facility] CenterIn the event this information is protected by the Federal Confidentiality of Alcohol and Drug Abuse Patient Records regulations: The Federal rules restrict any use of the information to criminally investigate or prosecute any alcohol or drug abuse patient.[facility] CenterIn the event this information is protected by the Federal Confidentiality of Alcohol and Drug Abuse Patient Records regulations: The Federal rules restrict any use of the information to criminally investigate or prosecute any alcohol or drug abuse patient.[facility] Reason for Visit (unrecogniz ed section and content) Reason Comments Earwax Bilateral ear Specialty Diagnoses / Procedures Referred By Contac t Referred To Contact Diagnoses Bilateral hearing loss, unspecified hearing loss type Procedures HEARING TEST/AUDIOGRAM COMPRE AUDIOMETRY THRESHOLD EVAL SP RECOGNIJ Narciso Guerra MD [address] [place] [address] [facility] [address] [place] [address] Referral ID Status Reason Start Date Expiration Date V isits Requested Visits Authorized [id number] Closed Auto-Generate d Referral 04/22/2022 07/21/2022 1 1 Reason Comments New Patient Evaluation Had sleep study d one. Specialty Diagnoses / Procedures Referred By Contac t Referred To Contact Diagnoses Sleep apnea, unspecified type Sleep hypopnea Procedures CONSULT TO SLEEP MEDICINE - ADULT OFFICE/OUTPATIENT [facility] 60-74 MINUTES Narciso Guerra MD [address] [place] [address] Referral ID Status Reason Start Date Expiration Date V isits Requested Visits Authorized [id number] Closed PCP Requested Referral 04/28/2022 04/28/2023 1 1 Reason Comments Memory Loss Specialty Diagnoses / Procedures Referred By Contac t Referred To Contact Neurology Diagnoses Memory loss Procedures CONSULT TO NEUROLOGY OFFICE/OUTPATIENT [facility] 60-74 MINUTES Narciso Guerra MD [address] [place] [address] Referral ID Status Reason Start Date Expiration Date V isits Requested Visits Authorized [id number] Closed PCP Requested Referral 06/22/2022 06/22/2023 1 1 Reason Comments Lumbar Puncture Reason Comments Memory Loss Reason Comments Sleep Apnea Reason Comments PAP Rx Faxed DME: [facility] Reason Comments Returning Patient's Call Reason Comments Refill Request Reason Comments PAP Therapy Follow Up 12/18/22 - 01/16/23 L AST FOUND DL FROM DME Reason Comments Research CAD (IRB 19-366) I nterest Reason Comments Research CAD (IRB 19-366) Specialty Diagnoses / Procedures Referred By Naseem t Referred To Contact MR IMAGING Diagnoses Cognitive changes Procedures MRI BRAIN WO IVCON MRI BRAIN BRAIN STEM W/O CONTRAST [place] [address] [place] [address] [place] [address] Referral ID Status Reason Start Date Expiration Date V isits Requested Visits Authorized [id number] Closed Auto-Generate d Referral 04/22/2022 06/06/2022 1 1 Reason Onset Date Comments Refill Request 12/06/2023 FOR RECORDS PERTAINING TO PATIENTS WHO ARE OR HAVE BEEN ENROLLED IN A CHEMICAL DEPENDENCY/SUBSTANCEABUSE PROGRAM, SOME INFORMATION MAY BE OMITTED. This clinical summary was aggregated from multiple sources. Caution should be exercised in using it in the provision of clinical care. This summary normalizes information from multiple sources, and as a consequence, information in this document may materially change the coding, format and clinical context of patient data. In addition, data may be omitted in some cases. CLINICAL DECISIONS SHOULD BE BASED ON THE PRIMARY CLINICAL RECORDS. [employer] [facility] provides no warranty or guarantee of the accuracy or completeness of information in this document.
== END 2024-01-05 08:08 | disposition home or self-care (01) ==
LOC: CT 08:07
PROVIDERS: PCP Family Medicine; Visit Provider Family Medicine
DX: R97.20 Elevated prostate specific antigen [PSA] (principal)
CPT/HCPCS: 74177; Q9967

== ENCOUNTER 2024-06-09 09:10 | Emergency (ER) | payer OTHER, SELFPAY ==
[2024-06-09] VITALS (9 sets, daily range): BP systolic 102–143; BP diastolic 67–90; PULSE 55–69; TEMP 36.7; O2SAT 96–99; BMI 33.3
--- NOTE | 2024-06-09 09:17 | CT_ITS ---
[address] [address] Patient Name: ESTELLA JEFFERY MRN: [id number] date: 1965 Sex: M Assigned Patient Location: ER Current Patient Location: ER Accession/Order Number: [id number] Exam Date: 06/09/2024 09:33 Report Date: 06/09/2024 10:20 At the request of: MEGAN KITCHEN Procedure: CT head/brain wo con EXAMINATION: CT head/brain wo con HISTORY: fall with loss of consciousness COMPARISON: No relevant comparison available. TECHNIQUE: Axial CT images were obtained without IV contrast. Dose reduction techniques were achieved by using automated exposure control and/or adjustment of mA and/or kV according to patient size and/or use of iterative reconstruction technique. FINDINGS: BRAIN: No edema, hemorrhage, mass, acute infarction, or inappropriate atrophy. CSF SPACES: No hydrocephalus, subarachnoid hemorrhage, or mass. Appropriate for age. SKULL: No fracture, mass, or other significant visible lesion. SINUSES: No significant mucosal thickening or fluid on the limited views. ORBITS: No appreciable abnormality on the limited views. OTHER: Negative CT/CT head/brain wo con IMPRESSION: 1. No acute or suspicious findings of the brain. 2. No fracture the calvarium or scalp hematoma. Electronically authenticated by: LUCIE TOWNSEND Date: 06/09/2024 10:20
--- NOTE | 2024-06-09 09:17 | CT_ITS ---
The [address] [address] Patient Name: ESTELLA JEFFERY MRN: [id number] date: 1965 Sex: M Assigned Patient Location: ER Current Patient Location: ER Accession/Order Number: [id number] Exam Date: 06/09/2024 09:33 Report Date: 06/09/2024 10:32 At the request of: MEGAN KITCHEN Procedure: CT cervical spine wo con EXAMINATION: CT cervical spine wo con HISTORY: fall with loss of consciousness COMPARISON: No relevant comparison available. TECHNIQUE: Axial, Coronal, and Sagittal images were created without IV contrast. Dose reduction techniques were achieved by using automated exposure control and/or adjustment of mA and/or kV according to patient size and/or use of iterative reconstruction technique. FINDINGS: VERTEBRAL BODIES: No fracture, spondylolisthesis, bone lesion. FACET JOINTS: Multilevel mild degenerative changes. No disruption or abnormal widening. DISCS: Moderate narrowing with posterior disc osteophytes and mild uncovertebral joint spurring C3-C4, C4-C5, C5-C6 resulting in narrowing of the neural foramen, marked involving the left C4-C5 and C5-C6 neural foramen. Moderate involving the central canal and C4-C5. CENTRAL CANAL: No evidence of hemorrhage. PARASPINAL AREA: No visible mass. CT/CT cervical spine wo con IMPRESSION: 1. No appreciable acute abnormality. 2. Moderate degenerative changes resulting in multilevel central canal and foraminal stenosis. Electronically authenticated by: LUCIE TOWNSEND Date: 06/09/2024 10:32
--- NOTE | 2024-06-09 09:17 | ECG_ITS ---
The [facility] Test Date: 2024-06-09 Pat Name: ESTELLA JEFFERY Department: Room: - Gender: Male [employer]: : 1965 Requested By: [id number] Order Number: [id number] Reading MD: PAUL LOPEZ Measurements Intervals [place] Rate: 54 P: 51 NV: 140 QRS: 32 QRSD: 88 T: 22 QT: 418 QTc: 404 Interpretive Statements 1100 Sinus rhythm 8102 Low QRS voltage in chest leads 9120 atypical ECG No previous ECG available for comparison
--- NOTE | 2024-06-09 09:18 | ED_ITS ---
HPI HPI - Fall General Chief Complaint: Fall Stated Complaint: fall Time Seen by Provider: 06/09/24 09:17 History of Present Illness HPI Narrative: The patient is a 58-year-old male with history of Alzheimer's coming to us after he fell down while going downstairs, there was nobody there to witness it but apparently when the saw him in the first floor he mentioned that he fell, the patient is not able to provide us of the mechanism of the injury and how far he fell He does not have any specific pain anywhere and he was able to ambulate from the stretcher to the bed The patient have the neck collar in place by the EMS on arrival When the EMS arrived the patient was sitting It was noted that the patient is confused as he does not remember a lot of the details like his birthday and also what happened today Related Data Home Medications ?Medication ?Instructions ?Recorded ?Confirmed No Known Home Medications 06/09/24 06/09/24 Allergies Allergy/AdvReac Type Severity Reaction Status Date / Time No Known Drug Allergies Allergy Verified 06/09/24 09:22 Opioid HPI Opioid Management Most Recent Pain and Opioid Data: Ur Phencyclidine Scrn Negative (NEGATIVE) 06/09/24 11:50 05/21 07/13 Review of Systems ROS Status of ROS 10 or more systems reviewed and unremark able except as noted in history and below Exam Narrative Exam Narrative: Nurses notes and vital signs reviewed and patient is not hypoxic. General: Well-appearing and in no apparent distress. Skin: Warm, dry, no pallor noted. No rash. Head: Normocephalic, atraumatic. Neck: Supple, non-tender. Eye: Pupils are equal, round and EOMI. No scleral icterus. Ears, Nose, Mouth, and Throat: TM are clear, no nasal mucosal hypertrophy. Oral mucosa is moist, no posterior oropharynx erythema, uvula is mid-line Cardiovascular: Regular Rate and Rhythm without murmur, gallop or rub. Respiratory: No accessory muscle use or respiratory distress. Lungs are clear to auscultation, no wheezing, rales or rhonchi Chest Wall: no tenderness Back: No midline thoracic or lumbar vertebral tenderness. No CVA tenderness Musculoskeletal: normal ROM, no calf or popliteal tenderness, there is a small abrasion on the anterior aspect of the right leg at the mid tibia but there is no tenderness on palpation GI: Abdomen is soft, non-distended. Normal bowel sounds. No masses appreciated. No tenderness to palpation. No rebound, guarding, or rigidity noted. Neurological: A&O x4. No cranial nerve dysfunction observed. No truncal ataxia. Moves all extremities. Sensation intact. Psychiatric: Cooperative and interactive. Normal mood and affect. Constitutional Vital Signs, click to edit/add: Last Vital Signs Temp 98.1 F 06/09/24 09:18 Pulse 58 L 06/09/24 11:30 Resp 20 06/09/24 10:30 BP 102/67 06/09/24 11:30 Pulse Ox 97 06/09/24 11:30 O2 Del Method Room Air 06/09/24 09:18 Course Vital Signs Vital signs: Vital Signs Blood Pressure 143/83 H 06/09/24 09:13 Pulse Oximetry 99 06/09/24 09:13 Temperature 98.1 F 06/09/24 09:18 Pulse Rate 58 L 06/09/24 11:30 Respiratory Rate 20 06/09/24 10:30 Blood Pressure 102/67 06/09/24 11:30 Pulse Oximetry 97 06/09/24 11:30 Oxygen Delivery Method Room Air 06/09/24 09:18 MDM - Fall MDM Narrative Medical decision making narrative: The patient EKG showing sinus rhythm with a heart rate of [address] elevation or depression CT of the head showed no acute pathology as well as x-ray of the chest CBC and chemistry showed no acute pathology CT cervical spine showed no acute pathology as well as x-ray of the right tibia and fibula although the patient x-ray of the right ankle showed that he have this talar pathology that I discussed with Dr. Grier and with the fact that the patient is able to walk on it the patient presentation is not concerning for an acute event but the patient will be provided with a walking boot and he will follow-up with Dr. Grier as outpatient The patient to come back in case of any new symptoms or concern The patient was also instructed about monitoring him for any new symptom for the next 24 hours specially after the fall The patient is to follow up with primary care physician in next 2-3 days or to return to the emergency department should any of the signs or symptoms worsen or new symptoms develop. The patient agrees with the following Diagnosis and Treatment plan and the patient will be discharged home. Lab Data Labs: Lab Results 06/09/24 06/09/24 06/09/24 Range/Units 09:21 09:23 11:50 WBC 4.4 (4.0-11.0) 10^3/uL RBC 6.04 (4.70-6.10) 10^6/uL Hgb 14.7 (14.0-18.0) g/dL Hct 46.3 (42.0-54.0) % MCV 76.7 L (80.0-94.0) fL MCH 24.3 L (25.9-34.0) pg MCHC 31.7 (29.9-35.2) g/dL RDW 14.2 (11.0-15.0) % Plt Count 164 (150-450) 10^3/uL MPV 9.5 (9.5-13.5) fL Neut % (Auto) 52.1 (43.0-75.0) % Lymph % (Auto) 39.1 (20.5-60.0) % [place] % (Auto) 7.0 (1.7-12.0) % Eos % (Auto) 1.1 (0.9-7.0) % Baso % (Auto) 0.7 (0.2-2.0) % Neut # (Auto) 2.3 (1.4-6.5) 10^3/uL Lymph # (Auto) 1.7 (1.2-3.8) 10^3/uL [place] # (Auto) 0.3 (0.3-0.8) 10^3/uL Eos # (Auto) 0.1 (0.0-0.7) 10^3/uL Baso # (Auto) 0.0 (0.0-0.1) 10^3/uL Abs Immat Gran (auto) 0.00 (0.00-0.03) 10^3/uL Imm/Tot Granulo (auto) 0.0 (0.0-0.5) % PT 10.8 (9.0-11.6) sec INR 1.02 Sodium 145 (136-145) mmol/L Potassium 4.2 (3.5-5.1) mmol/L Chloride 106 (98-107) mmol/L Carbon Dioxide 30.6 (21.0-32.0) mmol/L Anion Gap 12.6 BUN 14.0 (7.0-18.0) mg/dL Creatinine 1.01 (0.70-1.30) mg/dL Est GFR ( Amer) >60 (>=60 mL/min/1.73m^2) Est GFR (Non-Af Amer) >60 (>=60 mL/min/1.73m^2) BUN/Creatinine Ratio 13.9 Glucose 107 H (74-106) mg/dL Calcium 8.7 (8.5-10.1) mg/dL Total Bilirubin 0.7 (0.2-1.0) mg/dL AST 16 (15-37) U/L ALT 24 (16-63) U/L Alkaline Phosphatase 74 (46-116) U/L Troponin I High Sens 4.9 (4.0-76.1) pg/mL Total Protein 7.0 (6.4-8.2) g/dL Albumin 3.6 (3.4-5.0) g/dL Globulin 3.4 g/dL Albumin/Globulin Ratio 1.1 Urine Opiates Screen Negative (NEGATIVE) Ur Buprenorphine Scrn Negative (NEGATIVE) Ur Oxycodone Screen Negative (NEGATIVE) Urine Methadone Screen Negative (NEGATIVE) Ur Barbiturates Screen Negative (NEGATIVE) U Tricyclic Antidepress Negative (NEGATIVE) Ur Phencyclidine Scrn Negative (NEGATIVE) Ur Amphetamines Screen Negative (NEGATIVE) U Methamphetamines Scrn Negative (NEGATIVE) U Benzodiazepines Scrn Negative (NEGATIVE) Urine Cocaine Screen Negative (NEGATIVE) U Cannabinoids Screen Negative (NEGATIVE) POC Glucose 103 (74-106) mg/dL Discharge Plan Discharge Chief Complaint: Fall Clinical Impression: Fall, Foot pain Patient Disposition: Home, Self-Care Time of Disposition Decision: 13:24 Condition: Good Prescriptions / Home Meds: No Action No Known Home Medications Print Language: [place] Instructions: Fall Prevention (ED) Referrals: Jae Cruz MD [Primary Care Provider] - 1 week Yoel Grier DPM [Physician] - 1 week Discharge Date/Time: 06/09/24 13:50
--- NOTE | 2024-06-09 09:18 | XR_ITS ---
The [address] [address] Patient Name: ESTELLA JEFFERY MRN: [id number] date: 1965 Sex: M Assigned Patient Location: ER Current Patient Location: ED.MAIN Accession/Order Number: [id number] Exam Date: 06/09/2024 09:42 Report Date: 06/09/2024 10:08 At the request of: MEGAN KITCHEN Procedure: XR chest 1V EXAMINATION: XR chest 1V HISTORY: fall COMPARISON: XR chest 09/22/2018 FINDINGS: LUNGS: No significant pulmonary parenchymal abnormalities. VASCULATURE: No increased pulmonary vasculature. PLEURA: No pneumothorax, effusion, or pleural thickening. CARDIAC: No cardiomegaly or cardiac silhouette abnormality. MEDIASTINUM: No visible mass or adenopathy. BONES: No fracture or visible bone lesion. OTHER: Negative. XR/XR chest 1V IMPRESSION: 1. No acute cardiopulmonary process. Electronically authenticated by: LUCIE TOWNSEND Date: 06/09/2024 10:08
[2024-06-09 09:23] LABS: Glucometer 103 mg/dL (74-106)
[2024-06-09 09:29] LABS: Basophils Percent Auto 0.7 % (0.2-2.0); Eosinophils Absolute Auto 0.1 10^3/uL (0.0-0.7); Eosinophils Percent Auto 1.1 % (0.9-7.0); Hematocrit 46.3 % (42.0-54.0); Hemoglobin 14.7 g/dL (14.0-18.0); Lymphocytes Absolute Auto 1.7 10^3/uL (1.2-3.8); Lymphocytes Percent Auto 39.1 % (20.5-60.0); Mean Corpuscular HGB Conc 31.7 g/dL (29.9-35.2); Mean Corpuscular Hemoglobin 24.3 pg (25.9-34.0); Mean Corpuscular Volume 76.7 fL (80.0-94.0); Mean Platelet Volume 9.5 fL (9.5-13.5); Monocytes Absolute Auto 0.3 10^3/uL (0.3-0.8); Neutrophils Absolute Auto 2.3 10^3/uL (1.4-6.5); Neutrophils Percent Auto 52.1 % (43.0-75.0); Platelet Count 164 10^3/uL (150-450); Red Blood Count 6.04 10^6/uL (4.70-6.10); Red Cell Distribution Width 14.2 % (11.0-15.0); White Blood Count 4.4 10^3/uL (4.0-11.0)
[2024-06-09 09:49] LABS: INR 1.02; Prothrombin Time 10.8 sec (9.0-11.6)
[2024-06-09 09:51] LABS: Alanine Aminotransferase 24 U/L (16-63); Albumin Globulin Ratio 1.1; Albumin Level 3.6 g/dL (3.4-5.0); Alkaline Phosphatase 74 U/L (46-116); Anion Gap 12.6; Aspartate Amino Transferase 16 U/L (15-37); BUN Creatinine Ratio 13.9; Bilirubin Total 0.7 mg/dL (0.2-1.0); Calcium 8.7 mg/dL (8.5-10.1); Carbon Dioxide 30.6 mmol/L (21.0-32.0); Chloride 106 mmol/L (98-107); Estimated GFR (African America >60 (>=60 mL/min/1.73m^2); Estimated GFR (Non-African Ame >60 (>=60 mL/min/1.73m^2); Globulin 3.4 g/dL; Glucose 107 mg/dL (74-106); Potassium 4.2 mmol/L (3.5-5.1); Sodium 145 mmol/L (136-145)
[2024-06-09 09:53] LABS: Troponin I High Sensitivity 4.9 pg/mL (4.0-76.1)
--- OUTSIDE RECORDS SUMMARY | 2024-06-09 10:04 | XMS_ITS | CCD ---
Author Organization [facility] Care Team Providers Care Plugger Man Name Role Phone NAYA IZAGUIRRE Admitting Unavailable PAUL LOPEZ Primary Care Unavailable PAUL LOPEZ Referring Unavailable NAYA IZAGUIRRE Attending Unavailable AL Procedure Practitioner Unavailab NAYA Wolf Surgeon Unavailable PAUL LOPEZ Primary Care Unavailable SELF, REFERRED Referring Unavailable WILLAM IZAGUIRREIN Attending Unavailable ZINA JIASULTANAIN Admitting Unavailable AL Procedure Practitioner Unavailab ludy IZAGUIRRE JIASULTANAIN Surgeon Unavailable Unavailable Primary Care Provider [...] LORRI Referring Unavailable TEMO, LORRI Referring Unavailable TEMO LORRI Attending Unavailable TEMO, LORRI Attending Unavailable ELDER WEINSTEINEN Referring Unavailable ELDER WEINSTEINEN Attending Unavailable HOLLY PLASCENCIAIA Attending Unavailable Unavailable Primary Care Provider UnavailPaul Easton Primary Care Physician [phone] MD Danni Graham Attending Provider [phone] MD Paul Lopez Primary Care Provider [phone] Paul Lopez Primary Care Unavailable Danni Graham Attending Unavailable Danni Graham Admitting Unavailable Danni Graham. Attending Unavailable Paul Lopez Referring Unavailable Danni Graham Attending Unavailable Allergies Allergy Classification Reported Allergen(s) Allergy Type Date of Onset Reaction(s) Facility (1 source) 69960,00 Drug allergy (disorder) 05-09-2009 [facility] Repository Medications Current Medications Medication Drug Class(es) Dates Sig (Normalized) Sig (Original) aspirin 81 mg delayed release oral tablet (20 sources) Platelet Aggregation Inhibitor, Nonsteroidal Anti-inflammatory Drug Start: 11-26-2019 aspirin, enteric coated (ASPIRIN, ENTERIC COATED) 81 mg EC tablet once daily. 11/26/2019 Active Comment on above: once daily. CPAP/BIPAP/OTHER (20 sources) Start: 12-02-2022 End: 04-18-2050 CPAP/BIPAP/OTHER Type .CPAPSettings into a note to see current settings/supplies /DME information. 1 Each 12/02/2022 04/18/2050 Active Start: 12-02-2022 End: 04-18-2050 CPAP/BIPAP/OTHER Type .CPAPS ettings into a note to see current settings/supplies/DME information. 1 Each 0 12/02/2022 04/18/2050 Active Start: 04-30-2022 End: 09-14-2049 CPAP/BIPAP/OTHER Indications : SHELBY (obstructive sleep apnea) Type .CPAPSettings into a note to see current settings/supplies/DME information. 1 Each 04/30/2022 09/14/2049 Active Start: 04-30-2022 End: 09-14-2049 CPAP/BIPAP/OTHER Indications : SHELBY (obstructive sleep apnea) Type .CPAPSettings into a note to see current settings/supplies/DME information. 1 Each 0 04/30/2022 09/14/2049 Active Comment on above: Type .CPAPSettings i nto a note to see current settings/supplies/DME information. donepezil hydrochloride 5 mg oral tablet (20 sources) Start: take 1 tablet by mouth once daily donepezil (ARICEPT) 5 mg tablet Indications: Alzheimer's disease (HCC) take 1 tablet by mouth every day 30 tablet 03/09/2024 Active Start: 08-11-2022 End: 03-09-2024 take 1 tablet by mouth once daily donepezil (ARICEPT) 5 mg tablet Indications: Alzheimer's disease (HCC) Take 1 tablet by mouth once daily. 90 tablet 12/06/2023 03/09/2024 Discontinued Comment on above: Take 1 tablet by january th once daily. TAKE 1 TABLET BY JANUARY TH EVERY DAY hydrocortisone 10 mg/ml / neomycin 3.5 mg/ml / polymyxin b 33550 unt/ml otic suspension (3 sources) Aminoglycoside Antibacterial, Polymyxin-class Antibacterial, Corticosteroid Start: 04-22-20 End: 04-27-20 neomycin-polymyxin- hydrocortisone (CORTISPORIN) 3.5-10,000-1 mg/mL-unit/mL-% otic suspension Indications: Acute otitis externa of left ear, unspecified type Use 4 Drops in the left ear three times daily for 5 days. 10 mL 0 04/22/2022 04/27/2022 Active Comment on above: Use 4 Drops in the l eft ear three times daily for 5 days. memantine hydrochloride 5 mg oral tablet (14 sources) E-glfyhb-R-aspartate Receptor Antagonist Start: 11-18-19 take 1 tablet by mouth twice daily memantine (NAMENDA) 5 mg tablet Indications: Alzheimer's disease (HCC) Take 1 tablet by mouth twice daily. 180 tablet 1 11/18/2022 Active Comment on above: Take 1 tablet by january twice daily. omeprazole 20 mg delayed release oral capsule (20 sources) Proton Pump Inhibitor omeprazole (PRILOSEC) 20 mg capsule 40 mg once daily. Active Comment on above: 40 mg once daily. oxaprozin 600 mg oral tablet (20 sources) Nonsteroidal Anti-inflammatory Drug Start: 04-14-20 oxaprozin (DAYPRO) 600 mg tablet as needed. 04/14/2022 Active Comment on above: as needed. simvastatin 20 mg oral tablet (20 sources) HMG-CoA Reductase Inhibitor Start: 02-26-20 simvastatin (ZOCOR) 20 mg tablet daily at bedtime. 02/25/2022 Active Comment on above: daily at bedtime. Problems Active Problems Problem Classification Problem Date Documented Da te Episodic/Chronic Acute bronchitis (2 sources) Acute bronchitis 01-04-2024 Episodic Asthma (2 sources) Asthma 01-04-2024 Chronic Delirium, dementia, and amnestic and other cognitive disorders (6 sources) Alzheimer's disease; Translations: [Alzheimer's disease, unspecified] Chronic Diabetes mellitus without complication (3 sources) Other abnormal glucose; Translations: [Prediabetes] Onset: 2 01-04-2024 Episodic Disorders of lipid metabolism (19 sources) Hyperlipidemia; Translations: [Hyperlipidemia, unspecified] 12-02-2022 Chronic Esophageal disorders (2 sources) Gastroesophageal reflux disease 01-04-2024 Chronic Noninfectious gastroenteritis (4 sources) Acute gastroenteritis; Translations: [Chronic diarrhea] 01-04-2024 Episodic Nutritional deficiencies (3 sources) Vitamin D deficiency, unspecified; Translations: [Vitamin D deficiency] Onset: 2 01-04-2024 Chronic Osteoarthritis (4 sources) Unspecified osteoarthritis, unspecified site; Translations: [UNSPECIFIED OSTEOARTHRITIS UNS SITE] Onset: 3 Chronic Other circulatory disease (1 source) Elevated blood-pressure reading without diagnosis of hypertension; Translations: [Elevated blood-pressure reading, without diagnosis of hypertension] Episodic Other ear and sense organ disorders (20 sources) 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; Translations: [Sensorineural hearing loss, bilateral] Onset: 2 04-27-2022 Chronic Other ear and sense organ disorders (2 sources) Hearing loss 01-04-2024 Chronic Other ear and sense organ disorders (2 sources) Impacted cerumen of bilateral ears; Translations: [Impacted cerumen, bilateral] Episodic Other ear and sense organ disorders (1 source) Acute otitis externa of left ear; Translations: [Unspecified acute noninfective otitis externa, left ear] Episodic Other ear and sense organ disorders (2 sources) Tinnitus 01-04-2024 Episodic Other gastrointestinal disorders (2 sources) Perforation of small intestine 01-04-2024 Episodic Other nervous system disorders (2 sources) Other symptoms and signs involving cognitive functions and awareness; Translations: [Other signs and symptoms involving cognition] Onset: 2 05-07-2022 Episodic Other non-traumatic joint disorders (2 sources) Joint pain 01-04-2024 Episodic Other screening for suspected conditions (not mental disorders or infectious disease) (2 sources) Raised prostate specific antigen; Translations: [Elevated prostate specific antigen [PSA]] Onset: 4 Episodic Other upper respiratory disease (2 sources) Allergic rhinitis 01-04-2024 Chronic Other upper respiratory infections (2 sources) Acute sinusitis 01-04-2024 Episodic Residual codes; unclassified (3 sources) Sleep apnea; Translations: [Sleep apnea, unspecified] Chronic [...] (adult) (pediatric); Translations: [Obstructive sleep apnea] Onset: 3 Chronic Residual codes; unclassified (3 sources) Amnesia; Translations: [Other amnesia] Episodic Residual codes; unclassified (2 sources) Poor short-term memory 01-04-2024 Episodic Past or Other Problems Problem Classification Problem Date Documented Da te Episodic/Chronic Deficiency and other anemia (1 source) Anemia, unspecified; Translations: [ANEMIA UNSPECIFIED] Onset: 01-16-2022 Episodic Other ear and sense organ disorders (20 sources) Bilateral tinnitus; Translations: [Tinnitus, bilateral] Onset: 04-27-2022 04-27-2022 Episodic Residual codes; unclassified (5 sources) Other amnesia; Translations: [OTHER AMNESIA] Onset: 01-21-2022 Episodic Results Test Name Value Interpretation Reference Range Facility Provider Letteron 04-18-2024 Provider Letter Provider Letter April 18, 2024 NOÉ JEFFERY [address] [place] [id number] : 1965 Dear, I am corresponding with you by certified mail because you have a medical condition known as Elevated PSA. This requires scheduling surgery. My office has tried contacting you to get this scheduled with no response. Please contact my office at your earliest convenience and we will schedule your surgery so I can closely monitor your condition. I cannot be responsible for your urologic care if you do not follow up as recommended. Non compliance may result in dismissal from the practice. Office Sincerely, Dr. Danni Graham [facility] [address] [place] [address]. [place] [address] Normal [facility] ISTAT XRay CREon 03-15-2024 ISTAT GFR > 60.0 Normal [facility] Comment on above: Result Comment: PERF ORMED BY: [place] [address] PATHOLOGIST [employer] ASSOCIATE NALDO SALDIVAR M.D. Performed By: #### I SCRE #### [address] MR prostate wo/w conon 03-15 MR prostate wo/w con [facility] [place] [address] [place] [address] MRI Report Signed Patient: Noé Jeffery MR#: [id number] : 1965 Acct:[id number] Age/Sex: 58 / M ADM Date: 03/15/24 Loc: Room: Type: [facility] Attending Dr: Danni Graham MD Copies to: Danni Graham MD Ordering Provider: Danni Graham MD Date of Service: 03/15/24 MR/MR prostate wo/w con: ELEVATED PSA EXAMINATION: MR prostate wo/w con HISTORY: Elevated PSA. COMPARISON: NONE TECHNIQUE: Multiparametric imaging of the prostate gland was performed with IV contrast. FINDINGS: Prostate Dimensions: 4.4 x 2.7 x 4.0 cm. Prostate Volume: 25 mL. Peripheral Zone: Heterogenous inT2 signal suggestive of prior prostatitis. Focal area of T2 hypointensity is seen involving the lateral aspect of the right peripheral zone at the level of the mid gland measuring 18 x 9 mm with associated restricted diffusion and low ADC value. There appears to be evidence of extraprostatic extension. Please see series 4 image 19, series 650 image 19 and series 600 image 19. Central/Transitional Zone: BPH changes. Seminal Vesicles: Unremarkable Neurovascular bundles: Likely right sided neurovascular bundle involvement. Lymphadenopathy: No evidence of lymphadenopathy. Bladder: No focal lesion. Bowel: The visualized bowel is without acute abnormality. Peritoneal Cavity: No free fluid. Bones: No suspicious bony lesion. MR/MR prostate wo/w con IMPRESSION: Focal area of T2 hypointensity is seen involving the lateral aspect of the right peripheral zone at the level of the mid gland measuring 18 x 9 mm with associated restricted diffusion and low ADC value. There appears to be evidence of extraprostatic extension with likely right-sided neurovascular bundle involvement. Please see series 4 image 19, series 650 image 19 and series 600 image 19. PI-RADS 5. Targeting of this area on biopsy is recommended. Impression dictated by: Esdras Anne Jr., D.OChong03/15/2024 3:05 PM Dictation Location: RADIO-PC-14 Transcribed By: PWS 03/15/24 1505 Dictated By: Esdras Anne Jr, DO 03/15/24 1501 Signed By: 03/15/24 1505 Normal [facility] No Panel InformationOrdered By: Danni Graham on 03-15-2024 Bedside Estimated GFR (eGFR) > 60.0 [facility] Whole blood creatinine measu rementOrdered By: Danni Graham on 03-15-2024 Creatinine [Mass/Vol] 1.0 mg/dL Normal 0.6-1.3 [facility] Comment on above: ER/ESD physician is notified/shown all ISTAT results.Critical values may be confirmed by laboratory testing ifdeemed necessary by ER attending doctor. Result Comment: ER/E SD physician is notified/shown all ISTAT results. Critical values may be confirmed by laboratory testing if deemed necessary by ER attending doctor. Performed By: #### I SCRE #### [facility] [address] [place] [address] Marjorie 03-07-2023 [facility] Telephone ([facility]) NOÉ JEFFERY ([id number]) 1965 M Date Time Provider Department 03/07/23 CHASIDY STOVALL [facility] During your visit today, we recorded the following information about you: Chasidy Stovall, Research Coordinator 03/07/2023 1:44 PM Signed A voicemail was left about participation in [facility] research study. Chasidy Stovall, Research Coordinator 03/14/2023 1:46 PM Addendum Another voicemail was left in regards to potential participation. Allergies As of Date: 03/07/2023 (No Known Allergies) Date Reviewed: 10/12/2022 Reviewed by: Miguelito Chicas APRN.INSPECTOR OUTSIDE PRODUCTION - Fully Assessed Reason for Visit: Research [[id number]] Cmt: [facility] (IRB [id number]) Primary Visit Diagnosis:Research study [...] Encounter Status:Closed by CHASIDY STOVALL [facility]07[facility]23 [facility] Telephone ([facility]) NOÉ JEFFERY ([id number]) 1965 M Date Time Provider Department 02/08/23 CHASIDY STOVALL During your visit today, we recorded the following information about you: Chasidy Stovall, Research Coordinator 02/08/2023 1:26 PM Signed A call was made to of patient to talk about interest in participating in [facility]. expressed interest in participating. The [facility] consent document was sent through email. A call will be made in a week to discuss enrollment. Allergies As of Date: 02/08/2023 (No Known Allergies) Date Reviewed: 10/12/2022 Reviewed by: Miguelito Chicas APRN.INSPECTOR OUTSIDE PRODUCTION - Fully Assessed Reason for Visit: Research [293] Cmt: [facility] (IRB [id number]) Interest Primary Visit Diagnosis:Research [...] Encounter Status:Closed by CHASIDY STOVALL on 02/08/23 [facility] Marjorie 02-04-2023 [facility] Telephone ([facility]) NOÉ JEFFERY ([id number]) 1965 M Date Time Provider Department 02/04/23 SANDIE WEINSTEIN [facility] During your visit today, we recorded the following information about you: Domingo Fried 02/04/2023 8:38 AM Signed Allergies As of Date: 02/04/2023 (No Known Allergies) Date Reviewed: 10/12/2022 Reviewed by: Miguelito Chicas APRN.INSPECTOR OUTSIDE PRODUCTION - Fully Assessed Reason for Visit: PAP [...] Encounter Status:Closed by DOMINGO FRIED on 02/04/23 [facility] Telephone ([facility]) NOÉ JEFFERY ([id number]) 1965 M Date Time Provider Department 01/13/23 MIQUEL DIAMOND [facility] During your visit today, we recorded the following information about you: Sandie Weinstein APRN.EFRAIN 01/13/2023 12:00 PM Signed I left a message explaining the 4% requirement from Medicare, and advised to contact Medicare if they have insurance questions. Advised to call me back if they had other concerns or questions. Sandie Weinstein APRN.Noé Johnson 01/13/2023 1:14 PM Signed Patient returned call, requested a call back. Miquel Diamond, RN 01/14/2023 9:15 AM Signed Called and [...] Encounter Status:Closed by MIQUEL DIAMOND on 01/13/23 [facility]20[facility] NOÉ JEFFERY ([id number]) 1965 M Date Time Provider Department 12/03/22 SANDIE WEINSTEIN During your visit today, we recorded the following information about you: Domingo Fried 12/03/2022 11:39 AM Signed Faxed order, office notes, demographics, and sleep study to: DME name: [facility] DME fax: [phone] DME ph: Allergies As of Date: 12/03/2022 (No Known Allergies) Date Reviewed: 10/12/2022 Reviewed by: Miguelito Chicas APRN.INSPECTOR OUTSIDE PRODUCTION - Fully Assessed Reason for Visit: PAP Rx Faxed [[phone]] Cmt: DME: [facility] Prescriptions as of 12/03/2022 - CPAP/BIPAP/OTHER [...] Encounter Status:Closed by DOMINGO FRIED on 12/03/22 [facility] 11-08-2022 [facility] Telephone ([facility]) NOÉ JEFFERY ([id number]) 1965 M Date Time Provider Department 11/08/22 SANDIE WEINSTEIN During your visit today, we recorded the following information about you: Petrona Guzman LPN 11/08/2022 11:52 AM Signed Message was sent to [facility] requesting a 30 day compliance rpt to be sent to our Mobile office for Pt's upcoming appt. Will await for rpts to be sent. Petrona Guzman LPN 11/09/2022 8:40 AM Signed Rpt was received and was scanned in Pts chart. Allergies As of Date: 11/08/2022 (No Known Allergies) Date Reviewed: 10/12/2022 Reviewed by: Miguelito Chicas APRN.INSPECTOR OUTSIDE PRODUCTION - Fully Assessed Reason for Visit: Download [...] Status:Closed by PETRONA GUZMAN on 11/08/22 Normal [facility] RITO by Lakisha 10-25-2022 Antinuclear Antibodies, IFA Negative Normal [facility] Comment on above: Result Comment: Nega tive <1:80 Borderline 1:80 Positive >1:80 ICAP nomenclature: AC-0 For more information about Hep-2 cell patterns use ANApatterns.org, the official website for the International Consensus on Antinuclear Antibody (RITO) Patterns (ICAP). Performed By: #### T 7, TSH, CMP, LISANDRA, LIPA, LIPID #### [facility] [address] [place] [address] Dr. Janell Marquez ANTISTREPTOLYSIN O AB (ASO)o n 10-22-2022 Antistreptolysin O Ab 45.9 IU/mL Normal 0.0-200.0 [facility] Comment on above: Performed By: #### A SOAB #### [facility] [address] [place] [address] Dr. Janell Marquez RHEUMATOID FACTORon 10-23-19 RA Latex Turbid. <10.0 Normal <14.0 [facility] Comment on above: Performed By: #### R F #### [facility] [address] [place] [address] Dr. Janell Marquez CBC AUTO DIFFon 10-21-2022 BASO # 0.0 103/ul Normal 0.0-0.1 [facility] Comment on above: Performed By: #### T 7, TSH, CMP, LISANDRA, LIPA, LIPID #### [facility] [address] [place] [address] Dr. Janell Marquez Basophils/100 WBC (Bld) 0.4 % Normal 0.2-2.0 [facility] Comment on above: Performed By: #### T 7, TSH, CMP, LISANDRA, LIPA, LIPID #### [facility] [address] [place] [address] Dr. Janell Marquez EO # 0.0 103/ul Normal 0.0-0.7 [facility] Comment on above: Performed By: #### T 7, TSH, CMP, LISANDRA, LIPA, LIPID #### [facility] [address] [place] [address] Dr. Janell Marquez Eosinophils/100 WBC (Bld) 0.7 % Critically low 0.9-7.0 [facility] Comment on above: Performed By: #### T 7, TSH, CMP, LISANDRA, LIPA, LIPID #### [facility] [address] [place] [address] Dr. Janell Marquez Erythrocyte distribution width (RBC) [Ratio] 16.1 % Critically high 11.0-15.0 [facility] Comment on above: Performed By: #### T 7, TSH, CMP, LISANDRA, LIPA, LIPID #### [facility] [address] [place] [address] Dr. Janell Marquez Hematocrit (Bld) [Volume fraction] 48.8 % Normal 42.0-54.0 [facility] Comment on above: Performed By: #### T 7, TSH, CMP, LISANDRA, LIPA, LIPID #### [facility] [address] [place] [address] Dr. Janell Marquez Hemoglobin (Bld) [Mass/Vol] 15.3 g/dL Normal 14.0-18.0 [facility] Comment on above: Performed By: #### T 7, TSH, CMP, LISANDRA, LIPA, LIPID #### [facility] [address] [place] [address] Dr. Janell Marquez IG # 0.02 10e3/ul Normal 0.00-0.03 [facility] Comment on above: Performed By: #### T 7, TSH, CMP, LISANDRA, LIPA, LIPID #### [facility] [address] [place] [address] Dr. Janell Marquez IG % 0.4 % Normal 0.0-0.5 [facility] Comment on above: Performed By: #### T 7, TSH, CMP, LISANDRA, LIPA, LIPID #### [facility] [address] [place] [address] Dr. Janell Marquez LYMPH # 1.3 103/ul Normal 1.2-3.8 [facility] Comment on above: Performed By: #### T 7, TSH, CMP, LISANDRA, LIPA, LIPID #### [facility] [address] [place] [address] Dr. Janell Marquez Lymphocytes/100 WBC (Bld) 29.0 % Normal 20.5-60.0 [facility] Comment on above: Performed By: #### T 7, TSH, CMP, LISANDRA, LIPA, LIPID #### [facility] [address] [place] [address] Dr. Janell Marquez MANUAL DIFF REQ NO Normal [facility] Comment on above: Performed By: #### T 7, TSH, CMP, LISANDRA, LIPA, LIPID #### [facility] [address] [place] [address] Dr. Janell Marquez MCH (RBC) [Entitic mass] 23.5 pg Critically low 25.9-34.0 [facility] Comment on above: Performed By: #### T 7, TSH, CMP, LISANDRA, LIPA, LIPID #### [facility] [address] [place] [address] Dr. Janell Marquez MCHC (RBC) [Mass/Vol] 31.4 g/dL Normal 29.9-35.2 [facility] Comment on above: Performed By: #### T 7, TSH, CMP, LISANDRA, LIPA, LIPID #### [facility] [address] [place] [address] Dr. Janell Marquez MCV (RBC) [Entitic vol] 74.8 fL Critically low 80.0-94.0 [facility] Comment on above: Performed By: #### T 7, TSH, CMP, LISANDRA, LIPA, LIPID #### [facility] [address] [place] [address] Dr. Janell Marquez MONO # 0.3 103/ul Normal 0.3-0.8 [facility] Comment on above: Performed By: #### T 7, TSH, CMP, LISANDRA, LIPA, LIPID #### [facility] [address] [place] [address] Dr. Janell Marquez Monocytes/100 WBC (Bld) 7.4 % Normal 1.7-12.0 [facility] Comment on above: Performed By: #### T 7, TSH, CMP, LISANDRA, LIPA, LIPID #### [facility] [address] [place] [address] Dr. Janell Marquez NEUT # 2.9 103/ul Normal 1.4-6.5 [facility] Comment on above: Performed By: #### T 7, TSH, CMP, LISANDRA, LIPA, LIPID #### [facility] [address] [address] [address] Janell Marquez Neutrophils/100 WBC (Bld) 62.1 % Normal 43.0-75.0 [facility] Comment on above: Performed By: #### T 7, TSH, CMP, LISANDRA, LIPA, LIPID #### [facility] [address] [address] [address] Janell Marquez Platelet mean volume (Bld) [Entitic vol] 9.3 fL Critically low 9.5-13.5 [facility] Comment on above: Performed By: #### T 7, TSH, CMP, LISANDRA, LIPA, LIPID #### [facility] [address] [place] [address] Dr. Janell Marquez PLT 203 103/ul Normal 150-450 [facility] Comment on above: Performed By: #### T 7, TSH, CMP, LISANDRA, LIPA, LIPID #### [facility] [address] [place] [address] Dr. Janell Marquez RBC 6.52 106/ul Critically high 4.70-6.10 [facility] Comment on above: Performed By: #### T 7, TSH, CMP, LISANDRA, LIPA, LIPID #### [facility] [address] [place] [address] Dr. Janell Marquez WBC 4.6 103/ul Normal 4.0-11.0 [facility] Comment on above: Performed By: #### T 7, TSH, CMP, LISANDRA, LIPA, LIPID #### [facility] [address] [place] [address] Dr. Janell Marquez CRPon 10-21-2022 CRP [Mass/Vol] mg/L Normal <=1.0 The [facility] Comment on above: Performed By: #### T 7, TSH, CMP, LISANDAR, LIPA, LIPID #### [facility] [address] [place] [address] Dr. Janell Marquez SED RATE WESTERGREN 2022 SED RATE 30 mm/hr Critically high <=[address] [facility] Comment on above: Performed By: #### T 7, TSH, CMP, LISANDRA, LIPA, LIPID #### [facility] [address] [place], [place] [address] Dr. Janell Marquez URIC ACID SERUMon 10-21-2022 Urate [Mass/Vol] 4.3 mg/dL Normal 3.5-7.2 The [facility] Comment on above: Performed By: #### T 7, TSH, CMP, LISANDRA, LIPA, LIPID #### [facility] [address] [place], [place] [address] Dr. Janell Marquez ADMARK PHOSPHO-TAU TOTAL-TAU /AB42 CSFon 10-12-2022 COMMENT SEE NOTE Normal [facility] Comment on above: Order Comment: Speci men Type: CEREBROSPINAL FLUIDOrdering Facility: [facility] Address: [address] [place] [id number] Result Comment: Comm ents: This analysis detected levels of CSF A-beta 42 peptide (A-beta 42) and total tau (T-tau) proteins, reflected in a reduced A-beta 42 to T-tau Index (ATI). The level of phospho-tau (P-tau) was also elevated. These results are consistent with a diagnosis of Alzheimer's disease (AD). Recommendations: Health care providers, please contact the [facility] Client Services Department at if you wish to speak with a clinical wallpaper consultant regarding this test result. Background information: [...] of 72-88% and specificities of 78-83% (1). Mayela considers ATI values of 0.8 to 1.2 and P-tau levels of 54-68 pg/ml as borderline results. The combination of all three biomarkers has been reported to have an average sensitivity and specificity of 85% and 90%, respectively (6). Performed By: #### P HOTAU ####MARCIAL [id number] [address] [address] INTERPRETATION SEE NOTE Normal [facility] Comment on above: Order Comment: Speci men Type: CEREBROSPINAL FLUIDOrdering Facility: [facility] Address: [address] [place] [address] Result Comment: This test detected a reduced A-beta 42 to T-tau Index (ATI) and elevated levels of P-tau protein in the cerebrospinal fluid (CSF). Performed By: #### P HOTAU ####MARCIAL [id number] [address] [address] METHOD SEE NOTE Normal [facility] Comment on above: Order Comment: Speci men Type: CEREBROSPINAL FLUIDOrdering Facility: [facility] Address: [address] [place] [address] Result Comment: Dete ction of proteins was performed by Enzyme Linked Immunosorbent Assay (CARLITO) methodology. Limitations of analysis: Although rare, false positive or false negative results may occur. All results should be interpreted in the context of clinical findings, relevant history, and other laboratory data. Performed By: #### P HOTAU ####ATHENARUBEN [id number] [address] [address] REFERENCES SEE NOTE Normal [facility] Comment on above: Order Comment: Speci men Type: CEREBROSPINAL FLUIDOrdering Facility: [facility] Address: [place] [address] Result Comment: 1. F Hemanth baires et al. (2014) Front Aging Neurosci 6: 47. (PMID: 19111826) 2. Rian, T. (2008) Maria R Med 10:231-9 (PMID:01118703) 3. Braak, H, et al. (1991) Acta Neuropathol 82: 239-59. (PMID: 1995762) 4. Ousmane Pedraza, et al. (1999) Neurology 52: 1555-62. (PMID: 22050404) 5. Danni Long (2004) NeuroRx 1: 213-25. (PMID: 32566422) 6. Bill Long et al. (2015) Alzheimers Binh 11: 58-69. (PMID: 98448290) This test was developed and its analytical performance characteristics have been determined by [facility]. It has not been cleared or approved by the U.S. Food and Drug Administration. This assay has been validated pursuant to the CLIA regulations and is used for clinical purposes. Laboratory oversight provided by Delvin Figueredo M.D., Ph.D., CLIA license [place], [facility] (CLIA# [id number]) Testing performed at: [facility] [address] [place] [address] Performed By: #### P ANALISA ####ATHENACLIA [id number] [place] [address] TECHNICAL RESULTS SEE NOTE Normal [facility] Comment on above: Order Comment: Speci men Type: CEREBROSPINAL FLUIDOrdering Facility: [facility] Address: [place] [address] Result Comment: Interpretive Result Table INTERPRETATION: Alzheimer [...] TECHNICAL RESULT: 0.27 REFERENCE RANGE: Performed By: #### P ANALISA ####ATHENACLIA [id number] [address] [address] CNOVon 10-12-2022 CNOV Office Visit (ANAMIKA) NOÉ JEFFERY ([id number]) 1965 M Date Time Provider Department 10/12/22 10:30 AM MIGUELITO CHICAS During your visit today, we recorded the following information about you: Pulse Blood pressure 58/minute 117/74 Miguelito Chicas APRN.INSPECTOR OUTSIDE PRODUCTION 10/12/2022 2:33 PM Signed [facility] PROCEDURE FOR DIAGNOSTIC TESTING Noé Jeffery, [id number] October 12, 2022, 8:57 AM INFORMED CONSENT The risks, benefits and anticipated outcomes of the procedure, the risks and benefits of the alternatives to the procedure and the roles and tasks of the personnel to be involved were discussed with the patient, who consents to the procedure and agrees to proceed. I verify that I personally obtained Noé Jeffery's consent, Miguelito Chicas APRN.INSPECTOR OUTSIDE PRODUCTION UNIVERSAL PROTOCOL / SAFETY CHECKLIST Procedure to [...] Miguelito Chicas APRN.CNP 10/12/2022 10:31 AM Signed [facility] Neurological [place] [employer] POST LP HEADACHE Prevention [...] as coffee or tea You can take ggbc-nbh-wvrhtrd Tylenol and/or Ibuprofen as directed INFECTION PREVENTION [...] from 8-5pm, please contact our office line [phone] and then hit 0 , please ask our administrative dietitian to page the provider who performed the spinal tap. -For nights or weekends, call or toll free and ask the switch house operator the page the Neurology resident on-call. 2. If your headache is unusually severe regardless of bedrest or lasts more than two days 3. If you develop a fever 4 (more content not included)... Normal [facility] CSF MANUAL DIFFon 10-12-2022 Diff Total, CSF 57 cells counted [facility] Lymph%, CSF 91 % High 50 - 90 % [facility] Stutsman%, CSF 9 % Low 10 - 50 % [facility] DIF TTL, CSF 57 cells counted Normal [facility] Comment on above: Order Comment: Speci men Type: CEREBROSPINAL FLUIDOrdering Facility: [facility] Address: [address] [place] [address] Result Comment: Less than 100 cells were counted due to low cellularity of the specimen; therefore, the total differential percentage may be subject to rounding error. Performed By: #### L [id number], 50599-9 ####[facility] LABCLIA [id number] [place] [address] [place] LYMPH%, CSF 91 % High 50-90 [facility] Comment on above: Order Comment: Speci men Type: CEREBROSPINAL FLUIDOrdering Facility: [facility] Address: [address] [place] [address] Performed By: #### L [id number], 61557-5 ####[facility] LABCLIA [id number] [place] [address] [place] MONO%, CSF 9 % Low 10-50 [facility] Comment on above: Order Comment: Speci men Type: CEREBROSPINAL FLUIDOrdering Facility: [facility] Address: [address] Performed By: #### L [id number], 02974-0 ####[facility] LABCLIA [id number] [address] [place] Cell count panel (CSF)on Clarity (CSF) Clear Clear [facility] Clarity (Unsp spec) Not Indicated Clear Cl [facility] Color (CSF) Colorless Colorless [facility] Color (Spun CSF) Not Indicated Colorless [facility] CSF Tube Number Tube [address] [facility] RBC Manual cnt (CSF) [#/Vol] 3 cells/uL 0 - 5 cells/uL [facility] WBC Manual cnt (CSF) [#/Vol] 1 cells/uL 0 - 5 cells/uL [facility] Clarity (CSF) Clear Normal Clear [facility] Comment on above: Order Comment: Speci men Type: CEREBROSPINAL FLUIDOrdering Facility: [facility] Address: [address] Performed By: #### L [id number], 50699-9 ####[facility] LABCLIA [id number] [address] STATES OF [facility] Clarity (Unsp spec) Not Indicated Normal Clear Cl [facility] Comment on above: Order Comment: Speci men Type: CEREBROSPINAL FLUIDOrdering Facility: [facility] Address: [address] Performed By: #### L [id number], 35922-1 ####[facility] LABCLIA [id number] [address] [place] Color (CSF) Colorless Normal Colorless [facility] Comment on above: Order Comment: Speci men Type: CEREBROSPINAL FLUIDOrdering Facility: [facility] Address: [address] Performed By: #### L [id number], 58579-6 ####[facility] LABCLIA [id number] [address] Color (Spun CSF) Not Indicated Normal Colorless [facility] Comment on above: Order Comment: Speci men Type: CEREBROSPINAL FLUIDOrdering Facility: [facility] Address: [address] [place] [address] Performed By: #### L [id number], 04637-1 ####[facility] LABCLIA [id number] [address] [place] CSF TUBE NUMBER Tube 1 Normal [facility] Comment on above: Order Comment: Speci men Type: CEREBROSPINAL FLUIDOrdering Facility: [facility] Address: [address] [place] [address] Performed By: #### L [id number], 41574-1 ####[facility] LABCLIA [id number] [address] [place] RBC Manual cnt (CSF) [#/Vol] 3 cells/uL Normal 0-5 [facility] Comment on above: Order Comment: Speci men Type: CEREBROSPINAL FLUIDOrdering Facility: [facility] Address: [address] [place], [place] [address] Performed By: #### L [id number], 70502-1 ####[facility] LABCLIA [id number] [address] WBC Manual cnt (CSF) [#/Vol] 1 cells/uL Normal 0-5 [facility] Comment on above: Order Comment: Speci men Type: CEREBROSPINAL FLUIDOrdering Facility: [facility] Address: [address] [place] [address] Performed By: #### L [id number], 92189-3 ####[facility] LABCLIA [id number] [address] [place] GLUCOSE CSFon 10-12-2022 Glucose (CSF) [Mass/Vol] 57 mg/dL 40 - 70 mg/dL [facility] Glucose CSF-mCncon 3 Glucose (CSF) [Mass/Vol] 57 mg/dL Normal 40-70 [facility] Comment on above: Order Comment: Speci men Type: CEREBROSPINAL FLUIDOrdering Facility: [facility] Address: [address] [place], [place] [address] Result Comment: Lumb ar CSF glucose values of healthy patients are approximately 60% of the plasma values and must always be compared with a concurrently measured plasma value for adequate clinical interpretation. References: 1. Glucose HK (GLUC3) [package insert V 12.0 Macanese]. [employer], [place], [place]. October 2015. 2. Cali Alvarez, Gustavo HChong (2015). Chapter 7: Glucose and Lactate. Gloria Baires.(eds.), Cerebrospinal Fluid in Clinical Neurology. [place]: [employer]. Performed By: #### 2 342-4, 2880-3 ####[facility] LABCLIA [id number] [place] [address] [place] PROTEIN CSFon 10-12-2022 Protein (CSF) [Mass/Vol] 32 mg/dL 15 - 45 mg/dL [facility] Prot CSF-mCncon 10-12-2022 Protein (CSF) [Mass/Vol] 32 mg/dL Normal 15-45 [facility] Comment on above: Order Comment: Speci men Type: CEREBROSPINAL FLUIDOrdering Facility: [facility] Address: [address] [place], [place] [address] Performed By: #### 2 342-4, 2880-3 ####[facility] LABCLIA [id number] [place] [address] [place] TOURT[place]TE BLOODon [address] [facility] TOURTELLOTTE CSFon 3 Albumin (CSF) [Mass/Vol] 18.8 mg/dL Normal 10.0-30.0 [facility] Comment on above: Order Comment: Speci men Type: CEREBROSPINAL FLUIDOrdering Facility: [facility] Address: [address] Performed By: #### T OURTCSF ####[facility] LABCLIA [id number] [place] [address] [place] Albumin [Mass/Vol] 4200 mg/dL Normal 8621-3452 [facility] Comment on above: Order Comment: Speci men Type: CEREBROSPINAL FLUIDOrdering Facility: [facility] Address: [address] Performed By: #### T OURTCSF ####[facility] LABIA [id number] [place] [address] [place] IgG (CSF) [Mass/Vol] 3.0 mg/dL Normal 1.0-3.0 [facility] Comment on above: Order Comment: Speci men Type: CEREBROSPINAL FLUIDOrdering Facility: [facility] Address: [address] Performed By: #### T OURTCSF ####[facility] LABIA [id number] [place] [address] [place] IgG [Mass/Vol] 1435 mg/dL Normal 700-1600 [facility] Comment on above: Order Comment: Speci men Type: CEREBROSPINAL FLUIDOrdering Facility: [facility] Address: [address] Performed By: #### T OURTCSF ####[facility] LABCLIA [id number] [place] [address] [place] IgG clearance/Albumin clearance (S+CSF) [Ratio] 0.47 Normal 0.00-0.61 [facility] Comment on above: Order Comment: Speci men Type: CEREBROSPINAL FLUIDOrdering Facility: [facility] Address: [address] Performed By: #### T OURTCSF ####[facility] LABCLIA [id number] [address] IgG synthesis rate Calc (S+CSF) [Mass/Time] 0.0 mg/day Normal 0.0-3.0 [facility] Comment on above: Order Comment: Speci men Type: CEREBROSPINAL FLUIDOrdering Facility: [facility] Address: [address] [place] [address] Performed By: #### T OURTCSF ####[facility] [id number] [address] IgG/Albumin (CSF) [Mass ratio] 0.16 Normal 0.06-0.17 [facility] Comment on above: Order Comment: Speci men Type: CEREBROSPINAL FLUIDOrdering Facility: [facility] Address: [address] [place] [address] Performed By: #### T OURTCSF ####[facility] [id number] [address] VDRL CSF-Titron 10-12-2022 Reagin Ab VDRL (CSF) [Titer] Non-Reactive Normal Nonreactive [facility] Comment on above: Order Comment: Speci men Type: CEREBROSPINAL FLUIDOrdering Facility: [facility] Address: [address] [place] [address] Result Comment: CSF VDRL test is used an aid in diagnosis of neurosyphilis. CSF VDRL detects non-treponemal antibodies and has lower sensitivity than CSF treponemal tests such as FTA, therefore a negative result cannot reliably rule out neurosyphilis. Clinical correlation is required. 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 [3602] Prescriptions as of 07/22/2022 [...] Encounter Status:Closed by ANA JAFFE on 07/22/22 [facility] 05-07-2022 [facility] HNO ID: [id number] Author: Nicole Girard, nutritionist public health Service: Radiology Author Type: [place] Farmer Type: Allied Health Filed: 05/07/2022 1:54 PM [...] DATA: Not applicable SIGNED BY: Nicole Huffman, nutritionist public health May 07, 2022 1:31 PM [facility] MRI 3D POST PROCESSINGon MRI 3D POST PROCESSING * * *Final Report * * * DATE OF EXAM: May 07 2022 1:47PM [facility] 0280 - MRI 3D POST PROCESSING / PROCEDURE REASON: Cognitive changes * * * * Physician Interpretation * * * * EXAMINATION: MRI BRAIN WO IVCON, MRI 3D POST PROCESSING CLINICAL HISTORY: Cognitive changes TECHNIQUE: Axial FLORIDALMA FLAIR, FLORIDALMA T2, diffusion and susceptibility weighted imaging without contrast, using the ADNI dementia protocol and 3-D post-processing using the [employer] software at an independent workstation with concurrent [...] = Focal Lesions 2 = Beginning of Gervais 3 = Diffuse Involvement of Entire Region [...] results from the analysis charts for details. Attraction Attendant: PSCB Transcribe Date/Time: May 07 2022 2:51P Dictated by : MANISH PRICE MD This examination was interpreted and the report reviewed and electronically signed by: MANISH PRICE MD on May 07 2022 3:06PM EST [id number] CN Normal [facility] MRI BRAIN WO IVCONon 18-2 022 MRI BRAIN WO IVCON * * *Final Report* * * DATE OF EXAM: May 07 2022 1:47PM [facility] 0294 - MRI BRAIN WO IVCON / PROCEDURE REASON: Cognitive changes * * * * Physician Interpretation * * * * EXAMINATION: MRI BRAIN WO IVCON, MRI 3D POST PROCESSING CLINICAL HISTORY: Cognitive changes TECHNIQUE: Axial FLORIDALMA FLAIR, FLORIDALMA T2, diffusion and susceptibility weighted imaging without contrast, using the ADNI dementia protocol and 3-D post-processing using the [employer] software at an independent workstation with concurrent [...] = Focal Lesions 2 = Beginning of Gervais 3 = Diffuse Involvement of Entire Region [...] results from the analysis charts for details. Attraction Attendant: MARISELA Transcribe Date/Time: May 07 2022 2:51P Dictated by : MANISH PRICE MD This examination was interpreted and the report reviewed and electronically signed by: MANISH PRICE MD on May 07 2022 3:06PM EST [id number] Panel Informationon 05-[address] [facility] MRI BRAIN WO W CONon MRI BRAIN WO W CON EXAMINATION: MRI [...] by: LUCIE TOWNSEND Date: 2022-01-21 17:28 Normal [facility] US CAROTID ART BILon US CAROTID ART KISHAN EXAMINATION: US CAROTID [...] by: LUCIE TOWNSEND Date: 2022-01-21 17:18 Normal [facility] H PYLORI ANTIBODY IGGon 12-19 H. PYLORI IGG ABS 0.72 Index Value Normal 0.00-0.79 [facility] Comment on above: Result Comment: Nega tive <0.80 Equivocal 0.80 - 0.89 Positive >0.89 Performed By: #### H PYLLC #### [facility] [address] [place] [address] Dr. Janell Marquez INSULINon 01-13-2022 Insulin 15.8 uIU/mL Normal 2.6-24.9 [facility] Comment on above: Performed By: #### T 7, TSH, CMP, LISANDRA, LIPA, LIPID #### [facility] [address] [place] [address] [address] Janell Marquez VIT D 25-OH LABCORPon 2021 Vitamin D, 25-Hydroxy 29.7 ng/mL Critically low 30.0-100.0 [facility] Comment on above: Result Comment: Nelsy min D deficiency has been defined by the [place] [employer] and an Endocrine Society practice guideline as a level of serum 25-OH vitamin D less than 20 ng/mL (1,2). The Endocrine Society went on to further define vitamin D insufficiency as a level between 21 and 29 ng/mL (2). 1. IOM ([place] of [employer]). 2010. Dietary reference intakes for calcium and D. [place]: The National Academies Press. 2. Kevin MF, Mey NC, Bharat SPENCER, et al. Evaluation, treatment, and prevention of vitamin D deficiency: an Endocrine Society clinical practice guideline. JCEM. 2010; 96(7):1911-30. Performed By: #### T 7, TSH, CMP, LISANDRA, LIPA, LIPID #### [facility] [address] [place] [address] [address] Janell Marquez AMMONIAon 01-12-2022 Ammonia (P) [Mass/Vol] ug/dL Critically low 11-32 [facility] Comment on above: Performed By: #### T 7, TSH, CMP, LISANDRA, LIPA, LIPID #### [facility] [address] [place] [address] [address] Janell Marquez AMYLASEon 01-12-2022 Amylase [Catalytic activity/Vol] 49 U/L Normal 25-115 [facility] Comment on above: Performed By: #### T 7, TSH, CMP, LISANDRA, LIPA, LIPID #### [facility] [address] [place] [address] [address] Janell Marquez CBC AUTO DIFFon 01-12-2022 BASO # 0.0 103/ul Normal 0.0-0.1 [facility] Comment on above: Performed By: #### T 7, TSH, CMP, LISANDRA, LIPA, LIPID #### [facility] [address] [place] [address] Dr. Janell Marquez Basophils/100 WBC (Bld) 0.2 % Normal 0.2-2.0 [facility] Comment on above: Performed By: #### T 7, TSH, CMP, LISANDRA, LIPA, LIPID #### [facility] [address] [place] [address] Dr. Janell Marquez EO # 0.0 103/ul Normal 0.0-0.7 [facility] Comment on above: Performed By: #### T 7, TSH, CMP, LISANDRA, LIPA, LIPID #### [facility] [address] [place] [address] Dr. Janell Marquez Eosinophils/100 WBC (Bld) 0.3 % Critically low 0.9-7.0 [facility] Comment on above: Performed By: #### T 7, TSH, CMP, LISANDRA, LIPA, LIPID #### [facility] [address] [place] [address] Dr. Janell Marquez Erythrocyte distribution width (RBC) [Ratio] 16.0 % Critically high 11.0-15.0 [facility] Comment on above: Performed By: #### T 7, TSH, CMP, LISANDRA, LIPA, LIPID #### [facility] [address] [place] [address] Dr. Janell Marquez Hematocrit (Bld) [Volume fraction] 46.8 % Normal 42.0-54.0 [facility] Comment on above: Performed By: #### T 7, TSH, CMP, LISANDRA, LIPA, LIPID #### [facility] [address] [place] [address] Dr. Janell Marquez Hemoglobin (Bld) [Mass/Vol] 14.9 g/dL Normal 14.0-18.0 [facility] Comment on above: Performed By: #### T 7, TSH, CMP, LISANDRA, LIPA, LIPID #### [facility] [address] [address] [address] Janell Marquez IG # 0.01 10e3/ul Normal 0.00-0.03 [facility] Comment on above: Performed By: #### T 7, TSH, CMP, LISANDRA, LIPA, LIPID #### [facility] [address] [place] [address] Dr. Janell Marquez IG % 0.2 % Normal 0.0-0.5 [facility] Comment on above: Performed By: #### T 7, TSH, CMP, LISANDRA, LIPA, LIPID #### [facility] [address] [place] [address] Dr. Janell Marquez LYMPH # 1.0 103/ul Critically low 1.2-3.8 [facility] Comment on above: Performed By: #### T 7, TSH, CMP, LISANDRA, LIPA, LIPID #### [facility] [address] [place] [address] Dr. Janell Marquez Lymphocytes/100 WBC (Bld) 16.2 % Critically low 20.5-60.0 [facility] Comment on above: Performed By: #### T 7, TSH, CMP, LISANDRA, LIPA, LIPID #### [facility] [address] [place] [address] Dr. Janell Marquez MANUAL DIFF REQ NO Normal [facility] Comment on above: Performed By: #### T 7, TSH, CMP, LISANDRA, LIPA, LIPID #### [facility] [address] [place] [address] Dr. Janell Marquez MCH (RBC) [Entitic mass] 23.9 pg Critically low 25.9-34.0 [facility] Comment on above: Performed By: #### T 7, TSH, CMP, LISANDRA, LIPA, LIPID #### [facility] Laboratory [address] [place] [address] Dr. Janell Marquez MCHC (RBC) [Mass/Vol] 31.8 g/dL Normal 29.9-35.2 [facility] Comment on above: Performed By: #### T 7, TSH, CMP, LISANDRA, LIPA, LIPID #### [facility] [address] [place] [address] Dr. Janell Marquez MCV (RBC) [Entitic vol] 75.0 fL Critically low 80.0-94.0 [facility] Comment on above: Performed By: #### T 7, TSH, CMP, LISANDRA, LIPA, LIPID #### [facility] [address] [place] [address] Dr. Janell Marquez MONO # 0.4 103/ul Normal 0.3-0.8 [facility] Comment on above: Performed By: #### T 7, TSH, CMP, LISANDRA, LIPA, LIPID #### [facility] [address] [place] [address] Dr. Janell Marquez Monocytes/100 WBC (Bld) 6.0 % Normal 1.7-12.0 [facility] Comment on above: Performed By: #### T 7, TSH, CMP, LISANDRA, LIPA, LIPID #### [facility] [address] [place] [address] Dr. Janell Marquez NEUT # 4.5 103/ul Normal 1.4-6.5 [facility] Comment on above: Performed By: #### T 7, TSH, CMP, LISANDRA, LIPA, LIPID #### [facility] [address] [place] [address] Dr. Janell Marquez Neutrophils/100 WBC (Bld) 77.1 % Critically high 43.0-75.0 [facility] Comment on above: Performed By: #### T 7, TSH, CMP, LISANDRA, LIPA, LIPID #### [facility] [address] [place] [address] Dr. Janell Marquez Platelet mean volume (Bld) [Entitic vol] 9.3 fL Critically low 9.5-13.5 [facility] Comment on above: Performed By: #### T 7, TSH, CMP, LISANDRA, LIPA, LIPID #### [facility] [address] [place] [address] Dr. Janell Marquez PLT 202 103/ul Normal 150-450 [facility] Comment on above: Performed By: #### T 7, TSH, CMP, LISANDRA, LIPA, LIPID #### [facility] [address] [address] [address] Janell Marquez RBC 6.24 106/ul Critically high 4.70-6.10 [facility] Comment on above: Performed By: #### T 7, TSH, CMP, LISANDRA, LIPA, LIPID #### [facility] [address] [address] [address] Janell Marquez WBC 5.9 103/ul Normal 4.0-11.0 [facility] Comment on above: Performed By: #### T 7, TSH, CMP, LISANDRA, LIPA, LIPID #### [facility] [address] [address] [address] Janell Marquez FREE THYROXINE INDEX T7on FTI 3.14 Normal 1.30-4.50 [facility] Comment on above: Performed By: #### T 7, TSH, CMP, LISANDRA, LIPA, LIPID #### [facility] [address] [place] [address] Dr. Janell Marquez T3U 32.0 % Critically low 33.0-40.0 [facility] Comment on above: Performed By: #### T 7, TSH, CMP, LISANDRA, LIPA, LIPID #### [facility] [address] [place] [address] Dr. Janell Marquez T4 [Mass/Vol] 9.80 ug/dL Normal 4.50-12.10 [facility] Comment on above: Performed By: #### T 7, TSH, CMP, LISANDRA, LIPA, LIPID #### [facility] [address] [place] [address] Dr. Janell Marquez GLYCOHEMOGLOBIN A1Con 2021 ADA RECOMMENDATION SEE BELOW Normal [facility] Comment on above: Result Comment: ADA RECOMMENDED LIMIT 4.0 - 6.0 ADA THERAPEUTIC TARGET < 7.0 ACTION SUGGESTED > 7.0 Performed By: #### A 1C #### [facility] [address] [place] [address] Dr. Janell Marquez Glucose [Mass/Vol] 120 mg/dL Normal [facility] Comment on above: Performed By: #### A 1C #### [facility] [address] [place] [address] Dr. Janell Marquez HbA1c (Bld) [Mass fraction] 5.8 % Normal 4.5-6.2 [facility] Comment on above: Performed By: #### A 1C #### [facility] [address] [place] [address] Dr. Janell Marquez IRONon 01-12-2022 Iron [Mass/Vol] 70.0 ug/dL Normal 65.0-175.0 [facility] Comment on above: Performed By: #### T 7, TSH, CMP, LISANDRA, LIPA, LIPID #### [facility] [address] [place] [address] Dr. Janell Marquez LIPASEon 01-12-2022 Lipase [Catalytic activity/Vol] 72.0 U/L Critically low 73.0-393.0 [facility] Comment on above: Performed By: #### T 7, TSH, CMP, LISANDRA, LIPA, LIPID #### [facility] [address] [place] [address] Dr. Janell Marquez LIPID PROFILEon 01-12-2022 CHOL-HDL RATIO NORM SEE BELOW Normal [facility] Comment on above: Result Comment: 3.3 - 4.4 LOW RISK 4.4 - 7.1 AVERAGE RISK 7.1 - 11.0 MODERATE RISK >11.0 HIGH RISK Performed By: #### T 7, TSH, CMP, LISANDRA, LIPA, LIPID #### [facility] [address] [place] [address] Dr. Janell Marquez Cholesterol [Mass/Vol] 220 mg/dL Critically high <=200 [facility] Comment on above: Performed By: #### T 7, TSH, CMP, LISANDRA, LIPA, LIPID #### [facility] [address] [place] [address] Dr. Janell Marquez Cholesterol in HDL [Mass/Vol] 47 mg/dL Normal 40-60 [facility] Comment on above: Performed By: #### T 7, TSH, CMP, LISANDRA, LIPA, LIPID #### [facility] [address] [place] [address] Dr. Janell Marquez Cholesterol in LDL [Mass/Vol] 157.4 mg/dL Normal [facility] Comment on above: Performed By: #### T 7, TSH, CMP, LISANDRA, LIPA, LIPID #### [facility] [address] [address] [address] Janell Marquez Cholesterol.total/Chol esterol in HDL [Mass ratio] 4.7 {ratio} Normal [facility] Comment on above: Performed By: #### T 7, TSH, CMP, LISANDRA, LIPA, LIPID #### [facility] [address] [address] [address] Janell Marquez HDL NORMAL > or = 60 mg/dl - LOW CARDIOVASCULAR RISK <40 mg/dl - HIGH CARDIOVASCULAR RISK Normal [facility] Comment on above: Performed By: #### T 7, TSH, CMP, LISANDRA, LIPA, LIPID #### [facility] [address] [address] [address] Janell Marquez LDL CALC NORMAL SEE BELOW Normal [facility] Comment on above: Result Comment: <100 mg/dl OPTIMAL 100 - 129 mg/dl NEAR OR ABOVE OPTIMAL 130 - 159 mg/dl BORDERLINE HIGH 160 - 189 mg/dl HIGH >190 mg/dl VERY HIGH Performed By: #### T 7, TSH, CMP, LISANDRA, LIPA, LIPID #### [facility] [address] [address] [address] Janell Marquez Triglyceride [Mass/Vol] 78 mg/dL Normal <=150 [facility] Comment on above: Performed By: #### T 7, TSH, CMP, LISANDRA, LIPA, LIPID #### [facility] [address] [address] [address] Janell Marquez VLDL CALC 15.6 mg/dL Normal [facility] Comment on above: Performed By: #### T 7, TSH, CMP, LISANDRA, LIPA, LIPID #### [facility] [address] [address] [address] Janell Marquez PROF 14(COMP METB)on 022 Albumin [Mass/Vol] 3.5 g/dL Normal 3.4-5.0 [facility] Comment on above: Performed By: #### T 7, TSH, CMP, LISANDRA, LIPA, LIPID #### [facility] [address] [place] [address] Dr. Janell Marquez Albumin/Globulin [Mass ratio] 0.9 {ratio} Normal [facility] Comment on above: Performed By: #### T 7, TSH, CMP, LISANDRA, LIPA, LIPID #### [facility] [address] [place] [address] Dr. Janell Marquez ALP [Catalytic activity/Vol] 69 U/L Normal 46-116 [facility] Comment on above: Performed By: #### T 7, TSH, CMP, LISANDRA, LIPA, LIPID #### [facility] [address] [place] [address] Dr. Janell Marquez ALT [Catalytic activity/Vol] 19 U/L Normal 16-63 [facility] Comment on above: Performed By: #### T 7, TSH, CMP, LISANDRA, LIPA, LIPID #### [facility] [address] [place] [address] Dr. Janell Marquez Anion gap [Moles/Vol] 12.1 mmol/L Normal [facility] Comment on above: Performed By: #### T 7, TSH, CMP, LISANDRA, LIPA, LIPID #### [facility] [address] [place] [address] Dr. Janell Marquez AST [Catalytic activity/Vol] 15 U/L Normal 15-37 [facility] Comment on above: Performed By: #### T 7, TSH, CMP, LISANDRA, LIPA, LIPID #### [facility] [address] [place] [address] Dr. Janell Marquez Bilirubin [Mass/Vol] 0.8 mg/dL Normal 0.2-1.0 [facility] Comment on above: Performed By: #### T 7, TSH, CMP, LISANDRA, LIPA, LIPID #### [facility] [address] [place] [address] Dr. Janell Marquez Calcium [Mass/Vol] 8.5 mg/dL Normal 8.5-10.1 [facility] Comment on above: Performed By: #### T 7, TSH, CMP, LISANDRA, LIPA, LIPID #### [facility] [address] [address] [address] Janell Marquez Chloride [Moles/Vol] 105 mmol/L Normal 98-107 [facility] Comment on above: Performed By: #### T 7, TSH, CMP, LISANDRA, LIPA, LIPID #### [facility] [address] [place] [address] Dr. Janell Marquez CO2 [Moles/Vol] 28.0 mmol/L Normal 21.0-32.0 [facility] Comment on above: Performed By: #### T 7, TSH, CMP, LISANDRA, LIPA, LIPID #### [facility] [address] [place] [address] Dr. Janell Marquez Creatinine [Mass/Vol] 1.11 mg/dL Normal 0.70-1.30 [facility] Comment on above: Performed By: #### T 7, TSH, CMP, LISANDRA, LIPA, LIPID #### [facility] [address] [place] [address] Dr. Janell Marquez EGFR-AF FINNISH >60 Normal >=60 [facility] Comment on above: Performed By: #### T 7, TSH, CMP, LISANDRA, LIPA, LIPID #### [facility] [address] [place] [address] Dr. Janell Marquez EGFR-NON AF FINNISH >60 Normal >=60 [facility] Comment on above: Performed By: #### T 7, TSH, CMP, LISANDRA, LIPA, LIPID #### [facility] [address] [place] [address] Dr. Janell Marquez Globulin (S) [Mass/Vol] 3.7 g/dL Normal [facility] Comment on above: Performed By: #### T 7, TSH, CMP, LISANDRA, LIPA, LIPID #### [facility] [address] [place] [address] Dr. Janell Marquez Glucose [Mass/Vol] 115 mg/dL Critically high 74-106 [facility] Comment on above: Performed By: #### T 7, TSH, CMP, LISANDRA, LIPA, LIPID #### [facility] [address] [place] [address] Dr. Janell Marquez Potassium [Moles/Vol] 4.1 mmol/L Normal 3.5-5.1 [facility] Comment on above: Performed By: #### T 7, TSH, CMP, LISANDRA, LIPA, LIPID #### [facility] [address] [place] [address] Dr. Janell Marquez Protein [Mass/Vol] 7.2 g/dL Normal 6.4-8.2 [facility] Comment on above: Performed By: #### T 7, TSH, CMP, LISANDRA, LIPA, LIPID #### [facility] [address] [place] [address] Dr. Janell Marquez Sodium [Moles/Vol] 141 mmol/L Normal 136-145 [facility] Comment on above: Performed By: #### T 7, TSH, CMP, LISANDRA, LIPA, LIPID #### [facility] [address] [place] [address] Dr. Janell Marquez Urea nitrogen [Mass/Vol] 16.0 mg/dL Normal 7.0-18.0 [facility] Comment on above: Performed By: #### T 7, TSH, CMP, LISANDRA, LIPA, LIPID #### [facility] [address] [place] [address] Dr. Janell Marquez Urea nitrogen/Creatinine [Mass ratio] 14.4 mg/mg Normal [facility] Comment on above: Performed By: #### T 7, TSH, CMP, LISANDRA, LIPA, LIPID #### [facility] [address] [place] [address] Dr. Janell Marquez TSHon 01-12-2022 TSH 1.412 uIU/mL Normal 0.358-3.740 [facility] Comment on above: Performed By: #### T 7, TSH, CMP, LISANDRA, LIPA, LIPID #### [facility] [address] [place] [address] Dr. Janell Marquez VIT B12 AND FOLATEon 022 Cobalamin (Vitamin B12) [Mass/Vol] 411.0 pg/mL Normal 193.0-986.0 [facility] Comment on above: Performed By: #### T 7, TSH, CMP, LISANDRA, LIPA, LIPID #### [facility] [address] [address] [address] Janell Marquez FOLATE 11.10 ng/mL Normal 8.60-58.90 [facility] Comment on above: Performed By: #### T 7, TSH, CMP, LISANDRA, LIPA, LIPID #### [facility] [address] [place], [place] [address] Dr. Janell Marquez BASIC METABOLIC PANELon Calcium [Mass/Vol] 8.3 mg/dL Low 8.6-10.3 [facility] Comment on above: Order Comment: No: D o not add to previous draw Performed By: #### 0 0071 #### [facility] [address] [place] [address], [facility] Chloride [Moles/Vol] 104 mmol/L Normal 98-107 [facility] Comment on above: Order Comment: No: D o not add to previous draw Performed By: #### 0 0071 #### [facility] [address] [place] [address], [place] CO2 [Moles/Vol] 29 mmol/L Normal 21-31 [facility] Comment on above: Order Comment: No: D o not add to previous draw Performed By: #### 0 0071 #### [facility] [address] [place] [address], [facility] Creatinine [Mass/Vol] 0.81 mg/dL Normal 0.70-1.30 [facility] Comment on above: Order Comment: No: D o not add to previous draw Performed By: #### 0 0071 #### [facility] [address] [place] [address], [facility] GFR/1.73 sq M.predicted among blacks MDRD (S/P/Bld) [Vol rate/Area] mL/min/{1.73_m2} Normal >60 [facility] Comment on above: Order Comment: No: D o not add to previous draw Performed By: #### 0 0071 #### [facility] [address] [place] [address], [facility] GFR/1.73 sq M.predicted among non-blacks MDRD (S/P/Bld) [Vol rate/Area] mL/min/{1.73_m2} Normal >60 [facility] Comment on above: Order Comment: No: D o not add to previous draw Performed By: #### 0 0071 #### [facility] [address] [place] [address], [place] Glucose [Mass/Vol] 144 mg/dL High 70-100 [facility] Comment on above: Order Comment: No: D o not add to previous draw Performed By: #### 0 0071 #### [facility] [address] [place] [address], [place] Potassium [Moles/Vol] 3.6 mmol/L Normal 3.5-5.1 [facility] Comment on above: Order Comment: No: D o not add to previous draw Performed By: #### 0 0071 #### [facility] [address] [place] [address], [place] Sodium [Moles/Vol] 139 mmol/L Normal 136-145 [facility] Comment on above: Order Comment: No: D o not add to previous draw Performed By: #### 0 0071 #### [facility] [address] [place] [address], [place] Urea nitrogen [Mass/Vol] 9 mg/dL Normal 7-25 [facility] Comment on above: Order Comment: No: D o not add to previous draw Performed By: #### 0 0071 #### [facility] [address] [place] [address], [place] CBC COMPLETE BLOOD COUNTon 0 - Erythrocyte distribution width (RBC) [Ratio] 14.6 % Normal 11.5-15.0 [facility] Comment on above: Order Comment: No: D o not add to previous draw Performed By: #### 0 0071 #### [facility] [address] [place] [address], [facility] Hematocrit (Bld) [Volume fraction] 38.8 % Low 39.0-50.0 [facility] Comment on above: Order Comment: No: D o not add to previous draw Performed By: #### 0 0071 #### [facility] [address] [place] [address], [facility] Hemoglobin (Bld) [Mass/Vol] 12.1 g/dL Low 13.0-17.0 [facility] Comment on above: Order Comment: No: D o not add to previous draw Performed By: #### 0 0071 #### [facility] [address] [place] [place] [address], [facility] MCH (RBC) [Entitic mass] 23.7 pg Low 27.0-33.0 [facility] Comment on above: Order Comment: No: D o not add to previous draw Performed By: #### 0 0071 #### [facility] [address] [place] [address], [facility] MCHC (RBC) [Mass/Vol] 31.2 g/dL Low 32.0-35.0 [facility] Comment on above: Order Comment: No: D o not add to previous draw Performed By: #### 0 0071 #### [facility] [address] [place] [address], [facility] MCV (RBC) [Entitic vol] 75.9 fL Low 82.0-98.0 [facility] Comment on above: Order Comment: No: D o not add to previous draw Performed By: #### 0 0071 #### [facility] [address] [place] [address], [facility] Nucleated RBC/100 WBC (Bld) [Ratio] 0 % Normal 0-0 [facility] Comment on above: Order Comment: No: D o not add to previous draw Performed By: #### 0 0071 #### [facility] [address] [place] [address], [facility] PLAT CNT 182 10*3/uL Normal 150-400 [facility] Comment on above: Order Comment: No: D o not add to previous draw Performed By: #### 0 0071 #### [facility] [address] [place] [address], [facility] RBC (Bld) [#/Vol] 5.11 10*6/uL Normal 4.20-5.70 [facility] Comment on above: Order Comment: No: D o not add to previous draw Performed By: #### 0 0071 #### [facility] [address] [place] [id number], [facility] WBC (Bld) [#/Vol] 3.64 10*3/uL Low 4.00-10.60 [facility] Comment on above: Order Comment: No: D o not add to previous draw Performed By: #### 0 0071 #### [facility] [address] [place] [address], [facility] MAGNESIUM BLOODon 07-26-2020 Magnesium [Mass/Vol] 1.8 mg/dL Low 1.9-2.7 [facility] Comment on above: Order Comment: No: D o not add to previous draw Performed By: #### 1 0070, [id number] #### [facility] [address] [place] [id number], [facility] BASIC METABOLIC PANELon Calcium [Mass/Vol] 8.4 mg/dL Low 8.6-10.3 [facility] Comment on above: Order Comment: No: D o not add to previous draw Performed By: #### 1 0070, [id number] #### [facility] [address] [place] [id number], [facility] Chloride [Moles/Vol] 104 mmol/L Normal 98-107 [facility] Comment on above: Order Comment: No: D o not add to previous draw Performed By: #### 1 69, [id number] #### [facility] [address] [place] [address], [place] CO2 [Moles/Vol] 27 mmol/L Normal 21-31 [facility] Comment on above: Order Comment: No: D o not add to previous draw Performed By: #### 1 69, [id number] #### [facility] [address] [place] [address], [facility] Creatinine [Mass/Vol] 0.83 mg/dL Normal 0.70-1.30 [facility] Comment on above: Order Comment: No: D o not add to previous draw Performed By: #### 1 69, [id number] #### [facility] [address] [place] [address], [place] GFR/1.73 sq M.predicted among blacks MDRD (S/P/Bld) [Vol rate/Area] mL/min/{1.73_m2} Normal >60 [facility] Comment on above: Order Comment: No: D o not add to previous draw Performed By: #### 1 69, [id number] #### [facility] [address] [place] [address], [place] GFR/1.73 sq M.predicted among non-blacks MDRD (S/P/Bld) [Vol rate/Area] mL/min/{1.73_m2} Normal >60 [facility] Comment on above: Order Comment: No: D o not add to previous draw Performed By: #### 1 69, [id number] #### [facility] [address] [place] [address], [place] Glucose [Mass/Vol] 162 mg/dL High 70-100 [facility] Comment on above: Order Comment: No: D o not add to previous draw Performed By: #### 1 69, 05954 #### [facility] [address] [place] [address], [facility] Potassium [Moles/Vol] 3.4 mmol/L Low 3.5-5.1 [facility] Comment on above: Order Comment: No: D o not add to previous draw Performed By: #### 1 69, [id number] #### [facility] [address] [place] [address], [facility] Sodium [Moles/Vol] 137 mmol/L Normal 136-145 [facility] Comment on above: Order Comment: No: D o not add to previous draw Performed By: #### 1 69, [id number] #### [facility] [address] [place] [address], [facility] Urea nitrogen [Mass/Vol] 18 mg/dL Normal 7-25 [facility] Comment on above: Order Comment: No: D o not add to previous draw Performed By: #### 1 69, [id number] #### [facility] [address] CBC COMPLETE BLOOD COUNTon 0 - Erythrocyte distribution width (RBC) [Ratio] 15.2 % High 11.5-15.0 [facility] Comment on above: Order Comment: No: D o not add to previous draw Performed By: #### 0 0071 #### [facility] [address] [place] [id number], [facility] Hematocrit (Bld) [Volume fraction] 40.7 % Normal 39.0-50.0 [facility] Comment on above: Order Comment: No: D o not add to previous draw Performed By: #### 0 0071 #### [facility] [address] [place] [address], [facility] Hemoglobin (Bld) [Mass/Vol] 12.7 g/dL Low 13.0-17.0 [facility] Comment on above: Order Comment: No: D o not add to previous draw Performed By: #### 0 0071 #### [facility] [address] [place] [address], [facility] MCH (RBC) [Entitic mass] 23.3 pg Low 27.0-33.0 [facility] Comment on above: Order Comment: No: D o not add to previous draw Performed By: #### 0 0071 #### [facility] [address] [facility] [place] [address], [facility] MCHC (RBC) [Mass/Vol] 31.2 g/dL Low 32.0-35.0 [facility] Comment on above: Order Comment: No: D o not add to previous draw Performed By: #### 0 0071 #### [facility] [address] [facility] [place] [address], [facility] MCV (RBC) [Entitic vol] 74.8 fL Low 82.0-98.0 [facility] Comment on above: Order Comment: No: D o not add to previous draw Performed By: #### 0 0071 #### [facility] [address] [place] [address], [facility] Nucleated RBC/100 WBC (Bld) [Ratio] 0 % Normal 0-0 [facility] Comment on above: Order Comment: No: D o not add to previous draw Performed By: #### 0 0071 #### [facility] [address] [place] [address], [facility] PLAT CNT 207 10*3/uL Normal 150-400 [facility] Comment on above: Order Comment: No: D o not add to previous draw Performed By: #### 0 0071 #### [facility] [address] [place] [address], [facility] RBC (Bld) [#/Vol] 5.44 10*6/uL Normal 4.20-5.70 [facility] Comment on above: Order Comment: No: D o not add to previous draw Performed By: #### 0 0071 #### [facility] [address] [facility]. [address] WBC (Bld) [#/Vol] 3.05 10*3/uL Low 4.00-10.60 [facility] Comment on above: Order Comment: No: D o not add to previous draw Performed By: #### 0 0071 #### [facility] [address] [facility]. [address] MAGNESIUM BLOODon 07-25-2020 Magnesium [Mass/Vol] 1.8 mg/dL Low 1.9-2.7 [facility] Comment on above: Order Comment: No: D o not add to previous draw Performed By: #### 1 0070, 04385 #### [facility] [address] [facility]. [address] POC GLUCOSE LABon 07-25-2020 Glucose [Mass/Vol] 155 mg/dL High 70-100 [facility] Comment on above: Performed By: #### 0 0071, 96487 #### [facility] [address] [facility]. [address] *SARS-CoV-2 COVID-19on 07-24 SARS-CoV-2 (COVID-19) RNA LILLIANA+probe Ql (Unsp spec) Not detected Normal Not Detected [facility] Comment on above: Order Comment: No: D o not add to previous draw Performed By: #### 0 0071, [id number] #### [facility] [address] [facility]. [address] CBC W/DIFFon 07-24-2020 ABS IMM GRANS 0.0 10*3/uL Normal 0.0-0.2 [facility] Comment on above: Performed By: #### 0 0071 #### [facility] [address] ABS NEUTROPHILS 2.0 10*3/uL Normal 1.6-7.6 [facility] Comment on above: Performed By: #### 0 0071 #### [facility] [address] [place] [address], [facility] Basophils (Bld) [#/Vol] 0.0 10*3/uL Normal 0.0-0.2 [facility] Comment on above: Performed By: #### 0 0071 #### [facility] [address] [place] [address], [facility] Basophils/100 WBC (Bld) 0.4 % Normal 0.0-1.0 [facility] Comment on above: Performed By: #### 0 0071 #### [facility] [address] [facility] [place] [address], [facility] Eosinophils (Bld) [#/Vol] 0.0 10*3/uL Normal 0.0-0.5 [facility] Comment on above: Performed By: #### 0 0071 #### [facility] [address] [place] [address], [facility] Eosinophils/100 WBC (Bld) 0.7 % Normal 0.0-6.0 [facility] Comment on above: Performed By: #### 0 0071 #### [facility] [address] [facility] [address] Erythrocyte distribution width (RBC) [Ratio] 15.8 % High 11.5-15.0 [facility] Comment on above: Performed By: #### 0 0071 #### [facility] [address] [facility] [place] [address], [facility] Hematocrit (Bld) [Volume fraction] 45.5 % Normal 39.0-50.0 [facility] Comment on above: Performed By: #### 0 0071 #### [facility] [address] [facility] [place] [address], [facility] Hemoglobin (Bld) [Mass/Vol] 14.4 g/dL Normal 13.0-17.0 [facility] Comment on above: Performed By: #### 0 0071 #### [facility] [address] IMMATURE GRANS 0.4 % Normal 0.0-1.0 [facility] Comment on above: Performed By: #### 0 0071 #### [facility] [address] [place] [address], [facility] Lymphocytes (Bld) [#/Vol] 0.4 10*3/uL Low 1.2-4.0 [facility] Comment on above: Performed By: #### 0 0071 #### [facility] [address] Lymphocytes/100 WBC (Bld) 14.5 % Low 20.0-45.0 [facility] Comment on above: Performed By: #### 0 0071 #### [facility] [address] MCH (RBC) [Entitic mass] 23.7 pg Low 27.0-33.0 [facility] Comment on above: Performed By: #### 0 0071 #### [facility] [address] MCHC (RBC) [Mass/Vol] 31.6 g/dL Low 32.0-35.0 [facility] Comment on above: Performed By: #### 0 0071 #### [facility] [address] MCV (RBC) [Entitic vol] 75.0 fL Low 82.0-98.0 [facility] Comment on above: Performed By: #### 0 0071 #### [facility] [address] Monocytes (Bld) [#/Vol] 0.3 10*3/uL Normal 0.1-1.0 [facility] Comment on above: Performed By: #### 0 0071 #### [facility] [address] [place] [address], [facility] MONOS 12.3 % High 5.0-12.0 [facility] Comment on above: Performed By: #### 0 0071 #### [facility] [address] [place] [address], [facility] Neutrophils/100 WBC (Bld) 71.7 % Normal 40.0-72.0 [facility] Comment on above: Performed By: #### 0 0071 #### [facility] [address] [facility] [place] [address], [facility] Nucleated RBC/100 WBC (Bld) [Ratio] 0 % Normal 0-0 [facility] Comment on above: Performed By: #### 0 0071 #### [facility] [address] [facility] [place] [address], [facility] PLAT CNT 225 10*3/uL Normal 150-400 [facility] Comment on above: Performed By: #### 0 0071 #### [facility] [address] [facility] [place] [address], [facility] RBC (Bld) [#/Vol] 6.07 10*6/uL High 4.20-5.70 [facility] Comment on above: Performed By: #### 0 0071 #### [facility] [address] [facility]. [place] [id number], [facility] WBC (Bld) [#/Vol] 2.76 10*3/uL Low 4.00-10.60 [facility] Comment on above: Performed By: #### 0 0071 #### [facility] [address] [facility] [place] [address], [facility] COMP METABOLIC PANELon 07-24 Albumin [Mass/Vol] 3.7 g/dL Normal 3.5-5.7 [facility] Comment on above: Performed By: #### 3 5200, 25686, 67412 #### [facility] [address] [place] [address], [place] ALKALINE PHOSPH 58 IU/L Normal 34-104 [facility] Comment on above: Performed By: #### 3 5200, 75981, 37961 #### [facility] [address] [place] [address], [place] ALT [Catalytic activity/Vol] 12 U/L Normal 7-52 [facility] Comment on above: Performed By: #### 3 5200, 31728, 83328 #### [facility] [address] [place] [address], [place] AST [Catalytic activity/Vol] 15 U/L Normal 13-39 [facility] Comment on above: Performed By: #### 3 5200, 16219, 61460 #### [facility] [address] [place] [address], [place] Bilirubin [Mass/Vol] 1.3 mg/dL High 0.3-1.0 [facility] Comment on above: Performed By: #### 3 5200, 95156, 73119 #### [facility] [address] [place] [address], [place] Calcium [Mass/Vol] 8.7 mg/dL Normal 8.6-10.3 [facility] Comment on above: Performed By: #### 3 5200, 43803, 49365 #### [facility] [address] [place] [address], [place] Chloride [Moles/Vol] 99 mmol/L Normal 98-107 [facility] Comment on above: Performed By: #### 3 5200, 96050, 01580 #### [facility] [address] [place] [address], [place] CO2 [Moles/Vol] 25 mmol/L Normal 21-31 [facility] Comment on above: Performed By: #### 3 5200, 41897, 11478 #### [facility] [address] [place] [address], [place] Creatinine [Mass/Vol] 1.01 mg/dL Normal 0.70-1.30 [facility] Comment on above: Performed By: #### 3 5200, 40416, 10824 #### [facility] [address] [place] [address], [place] GFR/1.73 sq M.predicted among blacks MDRD (S/P/Bld) [Vol rate/Area] mL/min/{1.73_m2} Normal >60 [facility] Comment on above: Performed By: #### 3 5200, 64727, 20073 #### [facility] [address] [place] [address], [place] GFR/1.73 sq M.predicted among non-blacks MDRD (S/P/Bld) [Vol rate/Area] mL/min/{1.73_m2} Normal >60 [facility] Comment on above: Performed By: #### 3 5200, 02771, 17082 #### [facility] [address] [place] [address], [place] Glucose [Mass/Vol] 142 mg/dL High 70-100 [facility] Comment on above: Performed By: #### 3 5200, 30549, 61525 #### [facility] [address] [place] [address], [place] Potassium [Moles/Vol] 3.9 mmol/L Normal 3.5-5.1 [facility] Comment on above: Performed By: #### 3 5200, 88103, 82258 #### [facility] [address] [place] [address], [place] Protein [Mass/Vol] 6.6 g/dL Normal 6.0-8.3 [facility] Comment on above: Performed By: #### 3 5200, 52340, 93357 #### [facility] [address] [place] [address], [place] Sodium [Moles/Vol] 134 mmol/L Low 136-145 [facility] Comment on above: Performed By: #### 3 5200, 17696, 67922 #### [address] [place] [address], [facility] Urea nitrogen [Mass/Vol] 20 mg/dL Normal 7-25 [facility] Comment on above: Performed By: #### 3 5200, 41219, 94711 #### [facility] [address] [place], [place] [id number] [place] [address] CT ABDOMEN AND PELVIS W IV C ONTRASTon 07-24-2020 CT ABDOMEN AND PELVIS W IV CONTRAST [facility] Department of Radiology [address] [place] [address] [id number] Patient Name: NOÉ JEFFERY : 1965 Sex: M Age: Race: Other Pt. Location: [facility] Patient Status: E Ordered Date: 07/24/2020 3:15:00 PM Completed Date: 07/24/2020 03:58 PM Requesting Provider: STEFF ELDER Attending Provider: MARIBELL DIZA Report Copy To: Signs & Symptoms: Abdominal [...] achievable. Electronically signed: Miguelito Balderas. Transcribed by: [email or web address], User Resident: Electronically Signed by: MIGUELITO BALDERAS @ 07/24/2020 04:14 PM Normal [facility] Comment on above: Order Comment: No: D o not add to previous draw LACTATE BLOODon 07-24-2020 Lactate [Moles/Vol] 1.0 mmol/L Normal 0.5-2.2 [facility] Comment on above: Performed By: #### 1 0054 #### [address] LIPASE BLOODon 07-24-2020 LIPASE 7 Units/L Low 11-82 [facility] Comment on above: Performed By: #### 3 5200, 08468, 46971 #### [address] PORTABLE CHEST 1 VIEWon PORTABLE CHEST 1 VIEW [facility] Department of Radiology [address] [place], [place] [id number] Patient Name: NOÉ JEFFERY : 1965 Sex: M Age: Race: Other Pt. Location: [facility] Patient Status: E Ordered Date: 07/24/2020 3:15:00 [...] indicated. Electronically signed: Miguelito Balderas. Transcribed by: [email or web address], User Resident: Electronically Signed by: MIGUELITO BALDERAS @ 07/24/2020 03:58 PM Normal [facility] Comment on above: Order Comment: No: D o not add to previous draw TROPONIN-Ion 07-24-2020 Troponin I.cardiac [Mass/Vol] 0.00 ng/mL Normal 0.00-0.04 [facility] Comment on above: Result Comment: REFE RENCE RANGES: 0.00 - 0.14 ng/ml NEGATIVE 0.15 - 0.25 ng/ml INDETERMINATE > 0.25 ng/ml INDICATIVE OF AN M.I. Performed By: #### 3 5200, 11115, 15956 #### [facility] [address] [place] [address], [place] URINALYSIS REFLEXon 07-24-19 21 Appearance (U) CLEAR Normal CLEAR [facility] Comment on above: Order Comment: No: D o not add to previous draw Performed By: #### 0 0071, 49811 #### [facility] [address] [place] [address], [place] Bilirubin Ql (U) Negative Normal NEGATIVE [facility] Comment on above: Order Comment: No: D o not add to previous draw Performed By: #### 0 0071, 28712 #### [facility] [address] [place] [address], [place] Color (U) ANEL Abnormal YELLOW [facility] Comment on above: Order Comment: No: D o not add to previous draw Performed By: #### 0 0071, 06831 #### [facility] [address] [place] [address], [place] Glucose Ql (U) Negative Normal NEGATIVE [facility] Comment on above: Order Comment: No: D o not add to previous draw Performed By: #### 0 0071, 22955 #### [facility] [address] [place] [address], [place] Hemoglobin Ql (U) Negative Normal NEGATIVE [facility] Comment on above: Order Comment: No: D o not add to previous draw Performed By: #### 0 0071, 17696 #### [facility] [address] [place] [address], [place] KETONE 20 mg/dL Abnormal NEGATIVE [facility] Comment on above: Order Comment: No: D o not add to previous draw Performed By: #### 0 0071, 43850 #### [facility] [address] [place] [address], [place] LEUK DINO Negative Normal NEGATIVE [facility] Comment on above: Order Comment: No: D o not add to previous draw Performed By: #### 0 0071, 95579 #### [facility] [address] [place] [address], [place] MICRO NOT DONE Normal [facility] Comment on above: Order Comment: No: D o not add to previous draw Result Comment: Micr oscopics not performed on urines with negative chemical reactions unless requested in original order Performed By: #### 0 0071, 06426 #### [facility] [address] [place] [address], [place] Nitrite Ql (U) Negative Normal NEGATIVE [facility] Comment on above: Order Comment: No: D o not add to previous draw Performed By: #### 0 0071, 64008 #### [facility] [address] [place] [address], [place] pH (U) 5.0 [pH] Normal 5.0-8.0 [facility] Comment on above: Order Comment: No: D o not add to previous draw Performed By: #### 0 0071, 96001 #### [facility] [address] [place] [address], [place] Protein Ql (U) Negative Normal NEGATIVE [facility] Comment on above: Order Comment: No: D o not add to previous draw Performed By: #### 0 0071, 93887 #### [facility] [address] [place] [address], [facility] SPEC GRAV 1.084 High 1.015-1.020 [facility] Comment on above: Order Comment: No: D o not add to previous draw Result Comment: DONE BY DILUTION Performed By: #### 0 0071, 04247 #### [facility] [address] [place] [address], [facility] BASIC METABOLIC PANELon 02-0 Calcium [Mass/Vol] 8.8 mg/dL Normal 8.6-10.3 [facility] Comment on above: Order Comment: No: D o not add to previous draw Performed By: #### 0 0071, 88611 #### [facility] [address] [place] [address], [place] Chloride [Moles/Vol] 103 mmol/L Normal 98-107 [facility] Comment on above: Order Comment: No: D o not add to previous draw Performed By: #### 0 0071, 06838 #### [facility] [address] [place] [address], [place] CO2 [Moles/Vol] 27 mmol/L Normal 21-31 [facility] Comment on above: Order Comment: No: D o not add to previous draw Performed By: #### 0 0071, 62881 #### [facility] [address] [place] [address], [place] Creatinine [Mass/Vol] 0.87 mg/dL Normal 0.70-1.30 [facility] Comment on above: Order Comment: No: D o not add to previous draw Performed By: #### 0 0071, 70535 #### [facility] [address] [place] [address], [place] GFR/1.73 sq M.predicted among blacks MDRD (S/P/Bld) [Vol rate/Area] mL/min/{1.73_m2} Normal >60 [facility] Comment on above: Order Comment: No: D o not add to previous draw Performed By: #### 0 0071, 64727 #### [facility] [address] [place] [address], [place] GFR/1.73 sq M.predicted among non-blacks MDRD (S/P/Bld) [Vol rate/Area] mL/min/{1.73_m2} Normal >60 [facility] Comment on above: Order Comment: No: D o not add to previous draw Performed By: #### 0 0071, 27399 #### [facility] [address] [place] [address], [place] Glucose [Mass/Vol] 156 mg/dL High 70-100 [facility] Comment on above: Order Comment: No: D o not add to previous draw Performed By: #### 0 0071, 40329 #### [facility] [address] [place] [address], [place] Potassium [Moles/Vol] 3.9 mmol/L Normal 3.5-5.1 [facility] Comment on above: Order Comment: No: D o not add to previous draw Performed By: #### 0 0071, 88778 #### [facility] [address] [place] [address], [place] Sodium [Moles/Vol] 136 mmol/L Normal 136-145 [facility] Comment on above: Order Comment: No: D o not add to previous draw Performed By: #### 0 0071, 76685 #### [facility] [address] [place] [address], [facility] Urea nitrogen [Mass/Vol] 8 mg/dL Normal 7-25 [facility] Comment on above: Order Comment: No: D o not add to previous draw Performed By: #### 0 0071, 01227 #### [facility] [address] [place] [address], [facility] CBC COMPLETE BLOOD COUNTon 0 07-23-2020 Erythrocyte distribution width (RBC) [Ratio] 15.1 % High 11.5-15.0 [facility] Comment on above: Order Comment: No: D o not add to previous draw Performed By: #### 0 0071 #### [facility] [address] [place] [address], [facility] Hematocrit (Bld) [Volume fraction] 44.1 % Normal 39.0-50.0 [facility] Comment on above: Order Comment: No: D o not add to previous draw Performed By: #### 0 0071 #### [facility] [address] [place] [address], [facility] Hemoglobin (Bld) [Mass/Vol] 13.4 g/dL Normal 13.0-17.0 [facility] Comment on above: Order Comment: No: D o not add to previous draw Performed By: #### 0 0071 #### [facility] [address] [place] [address], [facility] MCH (RBC) [Entitic mass] 23.1 pg Low 27.0-33.0 [facility] Comment on above: Order Comment: No: D o not add to previous draw Performed By: #### 0 0071 #### [facility] [address] [place] [id number], [facility] MCHC (RBC) [Mass/Vol] 30.4 g/dL Low 32.0-35.0 [facility] Comment on above: Order Comment: No: D o not add to previous draw Performed By: #### 0 0071 #### [facility] [address] [place] [address], [facility] MCV (RBC) [Entitic vol] 76.0 fL Low 82.0-98.0 [facility] Comment on above: Order Comment: No: D o not add to previous draw Performed By: #### 0 0071 #### [facility] [address] [facility] [place] [address], [facility] Nucleated RBC/100 WBC (Bld) [Ratio] 0 % Normal 0-0 [facility] Comment on above: Order Comment: No: D o not add to previous draw Performed By: #### 0 0071 #### [facility] [address] [facility] [place] [address], [facility] PLAT CNT 190 10*3/uL Normal 150-400 [facility] Comment on above: Order Comment: No: D o not add to previous draw Performed By: #### 0 0071 #### [facility] [address] [place] [address], [facility] RBC (Bld) [#/Vol] 5.80 10*6/uL High 4.20-5.70 [facility] Comment on above: Order Comment: No: D o not add to previous draw Performed By: #### 0 0071 #### [facility] [address] [facility] [place] [address], [facility] WBC (Bld) [#/Vol] 7.98 10*3/uL Normal 4.00-10.60 [facility] Comment on above: Order Comment: No: D o not add to previous draw Performed By: #### 0 0071 #### [facility] [address] [facility] [place] [address], [facility] MAGNESIUM BLOODon 07-23-2020 Magnesium [Mass/Vol] 1.9 mg/dL Normal 1.9-2.7 [facility] Comment on above: Order Comment: No: D o not add to previous draw Performed By: #### 0 0071, 14515 #### [facility] [address] [place] [address], [place] POC GLUCOSE LABon 07-23-2020 Glucose [Mass/Vol] 140 mg/dL High 70-100 [facility] Comment on above: Performed By: #### 0 0071 #### [facility] [address] [place] [address], [place] Glucose [Mass/Vol] 155 mg/dL High 70-100 [facility] Comment on above: Performed By: #### 0 0071, 09794 #### [facility] [address] [place] [address], [place] Glucose [Mass/Vol] 164 mg/dL High 70-100 [facility] Comment on above: Performed By: #### 0 0071 #### [facility] [address] [place] [address], [place] BASIC METABOLIC PANELon Calcium [Mass/Vol] 8.3 mg/dL Low 8.6-10.3 [facility] Comment on above: Order Comment: No: D o not add to previous draw Performed By: #### 0 0071, 95283 #### [facility] [address] [place] [address], [place] Chloride [Moles/Vol] 103 mmol/L Normal 98-107 [facility] Comment on above: Order Comment: No: D o not add to previous draw Performed By: #### 0 0071, 54285 #### [facility] [address] [place] [address], [place] CO2 [Moles/Vol] 26 mmol/L Normal 21-31 [facility] Comment on above: Order Comment: No: D o not add to previous draw Performed By: #### 0 0071, 39876 #### [facility] [address] [place] [address], [place] Creatinine [Mass/Vol] 0.90 mg/dL Normal 0.70-1.30 [facility] Comment on above: Order Comment: No: D o not add to previous draw Performed By: #### 0 0071, 32770 #### [facility] [address] [place] [address], [place] GFR/1.73 sq M.predicted among blacks MDRD (S/P/Bld) [Vol rate/Area] mL/min/{1.73_m2} Normal >60 [facility] Comment on above: Order Comment: No: D o not add to previous draw Performed By: #### 0 0071, 05194 #### [facility] [address] [place] [address], [place] GFR/1.73 sq M.predicted among non-blacks MDRD (S/P/Bld) [Vol rate/Area] mL/min/{1.73_m2} Normal >60 [facility] Comment on above: Order Comment: No: D o not add to previous draw Performed By: #### 0 0071, [id number] #### [facility] [address] [place] [address], [place] Glucose [Mass/Vol] 166 mg/dL High 70-100 [facility] Comment on above: Order Comment: No: D o not add to previous draw Performed By: #### 0 0071, [id number] #### [facility] [address] [place] [address], [place] Potassium [Moles/Vol] 4.1 mmol/L Normal 3.5-5.1 [facility] Comment on above: Order Comment: No: D o not add to previous draw Performed By: #### 0 0071, [id number] #### [facility] [address] [place] [address], [place] Sodium [Moles/Vol] 136 mmol/L Normal 136-145 [facility] Comment on above: Order Comment: No: D o not add to previous draw Performed By: #### 0 0071, [id number] #### [facility] [address] [place] [address], [facility] Urea nitrogen [Mass/Vol] 12 mg/dL Normal 7-25 [facility] Comment on above: Order Comment: No: D o not add to previous draw Performed By: #### 0 0071, [id number] #### [facility] [address] [place] [address], [facility] CBC COMPLETE BLOOD COUNTon 0 07-22-2020 Erythrocyte distribution width (RBC) [Ratio] 14.9 % Normal 11.5-15.0 [facility] Comment on above: Order Comment: No: D o not add to previous draw Performed By: #### 0 0071, [id number] #### [facility] [address] [place] [address], [facility] Hematocrit (Bld) [Volume fraction] 42.8 % Normal 39.0-50.0 [facility] Comment on above: Order Comment: No: D o not add to previous draw Performed By: #### 0 0071, 84763 #### [facility] [address] [place] [address], [facility] Hemoglobin (Bld) [Mass/Vol] 13.3 g/dL Normal 13.0-17.0 [facility] Comment on above: Order Comment: No: D o not add to previous draw Performed By: #### 0 0071, [id number] #### [facility] [address] [place] [address], [facility] MCH (RBC) [Entitic mass] 23.4 pg Low 27.0-33.0 [facility] Comment on above: Order Comment: No: D o not add to previous draw Performed By: #### 0 0071, 36993 #### [facility] [address] [place] [address], [facility] MCHC (RBC) [Mass/Vol] 31.1 g/dL Low 32.0-35.0 [facility] Comment on above: Order Comment: No: D o not add to previous draw Performed By: #### 0 0071, 30954 #### [facility] [address] [facility] [place] [address], [facility] MCV (RBC) [Entitic vol] 75.2 fL Low 82.0-98.0 [facility] Comment on above: Order Comment: No: D o not add to previous draw Performed By: #### 0 0071, 40875 #### [facility] [address] [place] [address], [facility] Nucleated RBC/100 WBC (Bld) [Ratio] 0 % Normal 0-0 [facility] Comment on above: Order Comment: No: D o not add to previous draw Performed By: #### 0 0071, 44774 #### [facility] [address] [place] [address], [facility] PLAT CNT 211 10*3/uL Normal 150-400 [facility] Comment on above: Order Comment: No: D o not add to previous draw Performed By: #### 0 0071, [id number] #### [facility] [address] [place] [address], [facility] RBC (Bld) [#/Vol] 5.69 10*6/uL Normal 4.20-5.70 [facility] Comment on above: Order Comment: No: D o not add to previous draw Performed By: #### 0 0071, 01506 #### [facility] [address] [facility] [place] [address], [facility] WBC (Bld) [#/Vol] 8.55 10*3/uL Normal 4.00-10.60 [facility] Comment on above: Order Comment: No: D o not add to previous draw Performed By: #### 0 0071, 53426 #### [facility] [address] [place] [address], [facility] MAGNESIUM BLOODon 07-22-2020 Magnesium [Mass/Vol] 2.0 mg/dL Normal 1.9-2.7 [facility] Comment on above: Order Comment: No: D o not add to previous draw Performed By: #### 0 0071, [id number] #### [facility] [address] Operative Reporton Operative Report MR#: [id number] I [facility] Pt. Name: Noé Jeffery Room #: 4CD [id number] Discharge Date: Birthdate: 1965 OPERATIVE REPORT DATE [...] P/Naya Izaguirre M.D. Date Trans: 07/21/2020 10:04 P/patricia [id number] cc: Paul Lopez M.D. [address] [facility] [id number] Normal [facility] POC GLUCOSE LABon 07-22-2020 Glucose [Mass/Vol] 142 mg/dL High 70-100 [facility] Comment on above: Performed By: #### 0 0071, 35188 #### [facility] [address] [place] [address], [place] Glucose [Mass/Vol] 113 mg/dL High 70-100 [facility] Comment on above: Performed By: #### 0 0071, 14796 #### [facility] [address] [place] [address], [place] Glucose [Mass/Vol] 153 mg/dL High 70-100 [facility] Comment on above: Performed By: #### 0 0071, 28566 #### [facility] [address] [place] [address], [place] Glucose [Mass/Vol] 127 mg/dL High 70-100 [facility] Comment on above: Performed By: #### 0 0071, 69339 #### [facility] [address] [place] [address], [place] Glucose [Mass/Vol] 176 mg/dL High 70-100 [facility] Comment on above: Performed By: #### 0 0071 #### [facility] [address] [place] [address], [place] *MRSA/MSSA DNA NASALon 07-21 *MRSA/MSSA DNA NASAL Clinical Report: (D ) Specimen: NASAL SWAB Collected: 07/21/2020 00:00 Status: Final Last Updated: 07/21/2020 15:28 (1) No collection time noted on specimen or requisition. The collection time recorded is the time of receipt in the lab. MSSA DNA (Final) Methicillin Susceptible Staphylococcus aureus DNA Detected MRSA DNA (Final) Negative Normal [facility] Comment on above: Order Comment: No: D o not add to previous draw Performed By: #### 0 0071, 28432 #### [facility] [address] [place] [address], [place] POC GLUCOSE LABon 07-21-2020 Glucose [Mass/Vol] 168 mg/dL High 70-100 [facility] Comment on above: Performed By: #### 0 0071 #### [facility] [address] [place] [address], [place] Glucose [Mass/Vol] 211 mg/dL High 70-100 [facility] Comment on above: Performed By: #### 0 0071, 99603 #### [facility] [address] [place] [address], [place] Glucose [Mass/Vol] 117 mg/dL High 70-100 [facility] Comment on above: Performed By: #### 0 0071, 74672 #### [facility] [address] [place] [address], [facility] *SARS-CoV-2 COVID-19on 07-18 SARS-CoV-2 (COVID-19) RNA LILLIANA+probe Ql (Unsp spec) Not detected Normal Not Detected [facility] Comment on above: Order Comment: No: D o not add to previous draw Performed By: #### 0 0071, 79923 #### [facility] [address] [place] [address], [place] BASIC METABOLIC PANELon 06-21 Calcium [Mass/Vol] 9.2 mg/dL Normal 8.6-10.3 [facility] Comment on above: Performed By: #### 0 0071 #### [facility] [address] [place] [address], [place] Chloride [Moles/Vol] 100 mmol/L Normal 98-107 [facility] Comment on above: Performed By: #### 0 0071 #### [facility] [address] [place] [address], [place] CO2 [Moles/Vol] 30 mmol/L Normal 21-31 [facility] Comment on above: Performed By: #### 0 0071 #### [facility] [address] [place] [address], [place] Creatinine [Mass/Vol] 1.01 mg/dL Normal 0.70-1.30 [facility] Comment on above: Performed By: #### 0 0071 #### [facility] [address] [place] [address], [place] GFR/1.73 sq M.predicted among blacks MDRD (S/P/Bld) [Vol rate/Area] mL/min/{1.73_m2} Normal >60 [facility] Comment on above: Performed By: #### 0 0071 #### [facility] [address] [place] [address], [place] GFR/1.73 sq M.predicted among non-blacks MDRD (S/P/Bld) [Vol rate/Area] mL/min/{1.73_m2} Normal >60 [facility] Comment on above: Performed By: #### 0 0071 #### [facility] [address] [place] [address], [facility] Glucose [Mass/Vol] 121 mg/dL High 70-100 [facility] Comment on above: Performed By: #### 0 0071 #### [facility] [address] [place] [address], [place] Potassium [Moles/Vol] 4.4 mmol/L Normal 3.5-5.1 [facility] Comment on above: Performed By: #### 0 0071 #### [facility] [address] [place] [address], [place] Sodium [Moles/Vol] 135 mmol/L Low 136-145 [facility] Comment on above: Performed By: #### 0 0071 #### [facility] [address] [place] [address], [place] Urea nitrogen [Mass/Vol] 14 mg/dL Normal 7-25 [facility] Comment on above: Performed By: #### 0 0071 #### [facility] [address] [place] [address], [place] CBC W/DIFFon 07-18-2020 ABS IMM GRANS 0.0 10*3/uL Normal 0.0-0.2 [facility] Comment on above: Performed By: #### 0 0071 #### [facility] [address] [place] [address], [facility] ABS NEUTROPHILS 2.5 10*3/uL Normal 1.6-7.6 [facility] Comment on above: Performed By: #### 0 0071 #### [facility] [address] [place] [address], [facility] Basophils (Bld) [#/Vol] 0.0 10*3/uL Normal 0.0-0.2 [facility] Comment on above: Performed By: #### 0 0071 #### [facility] [address] [place] [address], [facility] Basophils/100 WBC (Bld) 0.9 % Normal 0.0-1.0 [facility] Comment on above: Performed By: #### 0 0071 #### [facility] [address] [place] [address], [facility] Eosinophils (Bld) [#/Vol] 0.1 10*3/uL Normal 0.0-0.5 [facility] Comment on above: Performed By: #### 0 0071 #### [facility] [address] [place] [address], [facility] Eosinophils/100 WBC (Bld) 1.2 % Normal 0.0-6.0 [facility] Comment on above: Performed By: #### 0 0071 #### [facility] [address] [place] [address], [facility] Erythrocyte distribution width (RBC) [Ratio] 14.8 % Normal 11.5-15.0 [facility] Comment on above: Performed By: #### 0 0071 #### [facility] [address] [place] [address], [facility] Hematocrit (Bld) [Volume fraction] 47.6 % Normal 39.0-50.0 [facility] Comment on above: Performed By: #### 0 0071 #### [facility] [address] [facility] [place] [address], [facility] Hemoglobin (Bld) [Mass/Vol] 14.5 g/dL Normal 13.0-17.0 [facility] Comment on above: Performed By: #### 0 0071 #### [facility] [address] [place] [address], [facility] IMMATURE GRANS 0.2 % Normal 0.0-1.0 [facility] Comment on above: Performed By: #### 0 0071 #### [facility] [address] [facility] [place] [address], [facility] Lymphocytes (Bld) [#/Vol] 1.4 10*3/uL Normal 1.2-4.0 [facility] Comment on above: Performed By: #### 0 0071 #### [facility] [address] [facility] [place] [address], [facility] Lymphocytes/100 WBC (Bld) 32.9 % Normal 20.0-45.0 [facility] Comment on above: Performed By: #### 0 0071 #### [facility] [address] [facility] [place] [address], [facility] MCH (RBC) [Entitic mass] 23.2 pg Low 27.0-33.0 [facility] Comment on above: Performed By: #### 0 0071 #### [facility] [address] [place] [address], [facility] MCHC (RBC) [Mass/Vol] 30.5 g/dL Low 32.0-35.0 [facility] Comment on above: Performed By: #### 0 0071 #### [facility] [address] [place] [address], [facility] MCV (RBC) [Entitic vol] 76.0 fL Low 82.0-98.0 [facility] Comment on above: Performed By: #### 0 0071 #### [facility] [address] [facility] [place] [address], [facility] Monocytes (Bld) [#/Vol] 0.3 10*3/uL Normal 0.1-1.0 [facility] Comment on above: Performed By: #### 0 0071 #### [facility] [address] [facility] [place] [address], [facility] MONOS 7.5 % Normal 5.0-12.0 [facility] Comment on above: Performed By: #### 0 0071 #### [facility] [address] [facility] [place] [address], [facility] Neutrophils/100 WBC (Bld) 57.3 % Normal 40.0-72.0 [facility] Comment on above: Performed By: #### 0 0071 #### [facility] [address] [facility] [place] [address], [facility] Nucleated RBC/100 WBC (Bld) [Ratio] 0 % Normal 0-0 [facility] Comment on above: Performed By: #### 0 0071 #### [facility] [address] [facility] [place] [address], [facility] PLAT CNT 222 10*3/uL Normal 150-400 [facility] Comment on above: Performed By: #### 0 0071 #### [facility] [address] [facility] [place] [address], [facility] RBC (Bld) [#/Vol] 6.26 10*6/uL High 4.20-5.70 [facility] Comment on above: Performed By: #### 0 0071 #### [facility] [address] [place] [id number], [facility] WBC (Bld) [#/Vol] 4.28 10*3/uL Normal 4.00-10.60 [facility] Comment on above: Performed By: #### 0 0071 #### [facility] [address] [facility] [place] [address], [facility] PROTHROMBIN TIMEon INR Coag (PPP) [Relative time] 0.95 {INR} Normal 0.91-1.16 [facility] Comment on above: Result Comment: ACCC P RECOMMENDED INR FOR WARFARIN THERAPY --------- ------- CONDITION INR PROPHYLAXIS OF VENOUS THROMBOSIS 2-3 (HIGH-RISK SURGERY) TREATMENT OF VENOUS THROMBOSIS 2-3 TREATMENT OF PULMONARY EMBOLISM 2-3 PREVENTION OF SYSTEMIC EMBOLISM: 2-3 ACUTE MYOCARDIAL INFARCTION TISSUE HEART VALVES VALVULAR HEART DISEASE ATRIAL FIBRILLATION RECURRENT SYSTEMIC EMBOLISM MECHANICAL HEART VALVE 2.5-3.5 FROM: ORAL ANTICOAGULANTS. MECHANISM OF ACTION, CLINICAL EFFECTIVENESS, AND OPTIMAL THERAPEUTIC RANGE. CHEST 1995;108:231S-246S. Performed By: #### 0 0071, [id number] #### [facility] [address] [facility] [place] [address], [facility] PT Coag (PPP) [Time] 12.7 s Normal 12.3-14.8 [facility] Comment on above: Result Comment: ALL RESULTS MUST BE INTERPRETED WITH RESPECT TO BLOOD DRAWING ARTIFACT OR DILUTION ERROR OF ANTICOAGULANT AT THE TIME OF SAMPLING. Performed By: #### 0 0071, [id number] #### [facility] [address] [facility] [place] [place] [address], [facility] Vital Signs Date Time Vital Sign Value Performing Clinician Facility 03-15-2024 14:28-0400 Body height 165.1 cm MD Paul Lopez Work Phone: [facility] 03-15-2024 14:28-0400 Body weight 73.93 kg MD Paul Lopez Work Phone: [facility] 01-11-2024 09:54-0400 Blood Pressure Location Danni Lue [facility] 01-11-2024 09:54-0400 Body temperature 98.6 [degF] Danni Lue [facility] 01-11-2024 09:54-0400 Diastolic blood pressure 72 mm[Hg] Danni Lue [facility] 01-11-2024 09:54-0400 Heart rate 57 /min Danni Lue [facility] 01-11-2024 09:54-0400 Respiratory rate 16 /min Danni Lue [facility] 01-11-2024 09:54-0400 Systolic blood pressure 119 mm[Hg] Danni Lue [facility] 10-12-2022 12:01-0400 Diastolic blood pressure 74 mm[Hg] Miguelito Chicas APRN.[employer]PECTOR [employer] Work Phone: [facility] 10-12-2022 12:01-0400 Heart rate 58 /min Miguelito Chicas APRN.[employer] Work Phone: [facility] 10-12-2022 12:01-0400 Systolic blood pressure 117 mm[Hg] Miguelito Chicas APRN.[employer] Work Phone: [facility] 04-30-2022 10:56-0500 Body weight 86.23 kg Gera Cardona DO Work Phone: [facility] 04-30-2022 10:56-0500 Diastolic blood pressure 91 mm[Hg] Gera Cardona DO Work Phone: [facility] 04-30-2022 10:56-0500 Heart rate 82 /min Gera Cardona DO Work Phone: [facility] 04-30-2022 10:56-0500 SaO2% (BldA) [Mass fraction] 97 % Gera Cardona DO Work Phone: [facility] 04-30-2022 10:56-0500 Systolic blood pressure 139 mm[Hg] Gera Cardona DO Work Phone: [facility] 04-26-2022 03:51-0500 Body height 165.1 cm Roosevelt Merlos MD Work Phone: [facility] 04-26-2022 03:51-0500 Body weight 83.6 kg Roosevelt Merlos MD Work Phone: [facility] 04-22-2022 16:41-0400 Diastolic blood pressure 100 mm[Hg] Brenda Francis MEDICAL ADMINISTRATOR.INSPECTOR [employer] Work Phone: [facility] 04-22-2022 16:41-0400 Systolic blood pressure 156 mm[Hg] Brenda Francis MEDICAL ADMINISTRATOR.INSPECTOR [employer] Work Phone: [facility] 04-22-2022 16:17-0400 Body temperature 98.29 [degF] Brenda Francis MEDICAL ADMINISTRATOR.INSPECTOR [employer] Work Phone: [facility] 04-22-2022 16:17-0400 Body weight 86.27 kg Brenda Francis MEDICAL ADMINISTRATOR.INSPECTOR [employer] Work Phone: [facility] 04-22-2022 16:17-0400 Heart rate 98 /min Brenda Francis MEDICAL ADMINISTRATOR.INSPECTOR [employer] Work Phone: [facility] 04-22-2022 16:17-0400 SaO2% (BldA) [Mass fraction] 100 % Brenda Francis MEDICAL ADMINISTRATOR.INSPECTOR [employer] Work Phone: [facility] Encounters Encounter Date Encounter Type Care Provider Facility Start: 03-15-2024 End: 03-15-2024 Patient encounter procedure MD Paul Lopez Work Phone: [facility] [place] Work Phone: Start: 03-15-2024 End: 03-15-2024 ambulatory MD Paul Lopez Work Phone: [facility] Work Phone: Start: 03-09-2024 End: 03-09-2024 Patient Msg Lisandra Gomez MEDICAL ADMINISTRATOR.INSPECTOR [employer] Work Phone: Neurology Comment on above: refill Start: 03-09-2024 End: 03-09-2024 Refill Lorri Plascencia MD Work Phone: Neurology Comment on above: Refill Request Start: 01-25-2024 End: 01-25-2024 ambulatory Danni Graham Facility:[facility] Start: 01-25-2024 End: 01-25-2024 Off-Site Danni Graham [facility] Start: 01-11-2024 End: 01-11-2024 ambulatory Paul Lopez Facility:[facility] Start: 01-11-2024 End: 01-11-2024 Patient encounter procedure Danni Graham [facility] Start: 12-21-2023 ambulatory Danni Lue Facility:[facility] Start: 12-06-2023 Refill Lorri orellana MD Work Phone: Neurology Comment on above: Refill Request donepezil refill Start: 05-23-2023 End: 05-23-2023 ambulatory MIGUELITO CHICAS Facility:[facility] Start: 03-07-2023 Patient entered into trial Chasidy Stovall Research Coordinator [facility] Start: 03-07-2023 Telephone encounter Chasidy locke Research Coordinator Neurology Comment on above: Research ([facility] (IRB [id number])) Start: 02-08-2023 E-mail encounter chris fajardo caregiver Sandie Weinstein APRN.INSPECTOR [employer] [facility] Start: 02-08-2023 Follow-up encounter Sandie Beltran APRN.INSPECTOR [employer] Work Phone: Neurology Comment on above: sleep follow up Start: 02-08-2023 Patient entered into trial Chasidy Stovall Research Coordinator [facility] Start: 02-08-2023 Telephone encounter Chasidy locke Research Coordinator Neurology Comment on above: Research ([facility] (IRB [id number]) Interest) Start: 02-04-2023 Telephone encounter Sandie Beltran MEDICAL ADMINISTRATOR.INSPECTOR [employer] Work Phone: Neurology Comment on above: PAP Therapy Follow U p (12/18/22 - 01/16/[address] LA[address] F[address] DL FROM DME ) Start: 02-02-2023 Refill Lorri orellana MD Work Phone: Neurology Comment on above: Refill Request Start: 01-13-2023 Telephone encounter Miquel Gaxiola RN Work Phone: Neurology Comment on above: Returning Patient's Call Start: 12-20-2022 End: 12-21-2022 ambulatory SANDIE WEINSTEIN Facility:[facility] Start: 12-03-2022 Telephone encounter Sandie Beltran APRN.INSPECTOR [employer] Work Phone: Neurology Comment on above: PAP Rx Faxed (DME: [facility] ) Start: 12-02-2022 End: 12-02-2022 Telemedicine consultation with patient Sandie Weinstein APRN.INSPECTOR [employer] Work Phone: [facility] Start: 12-02-2022 End: 12-02-2022 ambulatory Lorri Plascencia MD Work Phone: Neurology Comment on above: Forms from [employer] Obstructive sleep ap carol (Primary Dx); Primary central sleep apnea; Hyperlipidemia, unspecified hyperlipidemia type Start: 12-02-2022 E-mail encounter chris m caregiver Lorri Plascencia MD Work Phone: [facility] Start: 11-17-2022 End: 11-17-2022 ambulatory Lorri Plascencia MD Work Phone: Neurology Comment on above: Alzheimer's disease (HCC) (Primary Dx) Start: 11-17-2022 End: 11-17-2022 Telemedicine consultation with patient Lorri Plascencia MD Work Phone: [facility] Start: 10-21-2022 End: 10-22-[address] PAUL LOPEZ . Facility: Start: 10-12-2022 End: 10-12-2022 ambulatory MIGUELITO CHICAS Facility:[facility] Start: 10-12-2022 End: 10-12-2022 Patient encounter procedure Miguelito Aviva MEDICAL ADMINISTRATOR.INSPECTOR [employer] Work Phone: Neurology Comment on above: Memory loss (Primary Dx); Encounter for lumbar puncture Start: 10-12-2022 End: 10-12-2022 Patient encounter status Miguelito Aviva MEDICAL ADMINISTRATOR.INSPECTOR [employer] Work Phone: Neurology Start: 08-12-2022 Chart abstracting Leah Esquivel urology Start: 08-11-2022 End: 08-11-2022 ambulatory LORRI PLASCENCIA [facility] [facility] Start: 08-11-2022 End: 08-11-2022 ambulatory Lorri Plascencia MD Work Phone: Neurology Comment on above: Memory loss (Primary Dx) Start: 08-11-2022 End: 08-11-2022 Telemedicine consultation with patient Lorri Plascencia MD Work Phone: [facility] Start: 08-10-2022 E-mail encounter fro m caregiver [facility] Provider MARY ROMO [facility] Start: 08-10-2022 Patient encounter procedure [facility] Provider Neurology Comment on above: cancel appointment Start: 07-21-2022 End: 07-21-2022 ambulatory LORRI PLASCENCIA Facility:[facility] Start: 07-21-2022 End: 07-21-2022 ambulatory Lorir Plascencia MD Work Phone: Neurology Comment on above: Memory loss Start: 07-21-2022 End: 07-21-2022 Telemedicine consultation with patient Lorri Plascencia MD Work Phone: [facility] Start: 05-07-2022 ambulatory NARCISO GUERRA Facility:[facility] Start: 05-07-2022 End: 05-07-2022 Subsequent hospital visit by physician Mri [facility] (Istat/3t) Work Phone: [facility] Radiology MRI Comment on above: Cognitive changes [R 41.89] Start: 04-30-2022 End: 04-30-2022 Patient encounter procedure Gera Cardona DO Work Phone: Neurology Comment on above: SHELBY (obstructive sle ep apnea) (Primary Dx) Start: 04-28-2022 ambulatory Narciso Guerra MD Work Phone: Neurology Comment on above: sleep study results Start: 04-28-2022 E-mail encounter fro m caregiver Narciso Guerra MD Work Phone: [facility] Start: 04-27-2022 ambulatory Narciso Guerra MD Work Phone: Neurology Comment on above: lab results Start: 04-27-2022 E-mail encounter fro m caregiver Narciso Guerra MD Work Phone: [facility] Start: 04-25-2022 Chart abstracting Roosevelt Merlos MD Work Phone: Neurology Start: 04-22-2022 End: 04-22-2022 Office outpatient visit 15 minutes Brenda Blanco APRN.[employer]OR [employer] Work Phone: [facility] Comment on above: Bilateral impacted c erumen [...] End: 01-13-[address] PAUL LOPEZ . Facility: Start: 07-24-2020 End: 07-26-2020 Evaluation and management of inpatient PAUL LOPEZ Facility:[facility] Start: 07-21-2020 End: 07-23-2020 ambulatory ANYA IZAGUIRRE Facility:[facility] Procedures Date Procedure Procedure Detail Performing Clinician Start: 03-15-2024 MR prostate wo/w con MD Paul Lopez Work Phone: Start: 10-12-2022 TOURTELLOTTE BLOOD Og hew Aviva VELARDE.INSPECTOR [employer] Work Phone: Start: 10-12-2022 Cell count misc body fluids w/differential count Miguelito Chicas APRN.INSPECTOR [employer] Work Phone: Start: 10-12-2022 CSF MANUAL DIFF Miguelito Chicas APRN.[employer] Work Phone: Start: 10-12-2022 Glucose body fluid o ther than blood Miguelito Chicas APRN.INS[employer]OR [employer] Work Phone: Start: 05-07-2022 MRI 3D POST [...] NAYA IZAGUIRRE Start: 07-21-2020 RPR VENTRAL JAGRUTI INIT REDUC NAYA IZAGUIRRE Start: 07-21-2020 SUPPLEMENT ABDOMINAL WALL WITH SYNTH SUB, PERC ENDO APPROACH NAYA IZAGUIRRE Start: 06-20-2020 Primary repair of in guinal hernia using synthetic patch Danni Graham Start: 11-18-2018 Sigmoidostomy Danni Graham Start: 09-20-2018 Partial resection of colon Danni Graham Start: 01-05-2016 Biopsy of prostate Margarita Graham Comment on above: by Dr. Amato Extraction of cataract Danni Graham Repair of artery Danni Graham Plan of Treatment Date Care Activity Detail Author Start: 11-23-2029 Urine microalbumin profile DTaP,Tdap,Td Vaccine (2 - Td or Tdap) [facility] Start: 04-22-2025 DIABETES SCREEN DIABETES SCREEN [facility] Start: 04-22-2025 Diabetes Screening Diabetes Screenin g [facility] Start: 02-19-2024 Covid-19 Vaccine ( season) Covid-19 Vaccine () [facility] Start: 02-19-2024 Influenza vaccination [facility] Start: 06-20-2023 Behavioral Health Screening Behavioral Health Screening [facility] Start: 02-18-2023 Covid-19 Vaccine ( season) Covid-19 Vaccine () [facility] Start: 02-18-2023 Influenza vaccination [facility] Start: 10-12-2022 End: 12-12-2022 ADMARK PHOSPHO-TAU TOTAL-TAU/AB42 CSF [facility] Work Phone: Comment on above: Expected: 10/12/2022 , Expires: 12/12/2022 Start: 10-12-2022 End: 12-12-2022 Reagin Ab [Titer] in Cerebral spinal fluid by VDRL [facility] Work Phone: Comment on above: Expected: 10/12/2022 , Expires: 12/12/2022 Start: 08-11-2022 End: 10-11-2022 Cell count panel - Cerebral spinal fluid CSF CELL COUNT Lab Routine Memory loss Expected: 08/11/2022, Expires: 10/11/2022 [facility] Work Phone: Comment on above: Expected: 08/11/2022 , Expires: 10/11/2022 Start: 08-11-2022 End: 10-11-2022 Glucose [Mass/volume] in Cerebral spinal fluid GLUCOSE CSF Lab Routine Memory loss Expected: 08/11/2022, Expires: 10/11/2022 [facility] Work Phone: Comment on above: Expected: 08/11/2022 , Expires: 10/11/2022 Start: 08-11-2022 End: 10-11-2022 MISC SEND OUT TST 1 MISC SEND OUT TST 1 Lab Routine Memory loss Expected: 08/11/2022, Expires: 10/11/2022 [facility] Work Phone: Comment on above: Expected: 08/11/2022 , Expires: 10/11/2022 Start: 08-11-2022 End: 10-11-2022 Protein [Mass/volume] in Cerebral spinal fluid PROTEIN CSF Lab Routine Memory loss Expected: 08/11/2022, Expires: 10/11/2022 [facility] Work Phone: Comment on above: Expected: 08/11/2022 , Expires: 10/11/2022 Start: 08-11-2022 End: 10-11-2022 Reagin Ab [Titer] in Cerebral spinal fluid by VDRL VDRL CSF Lab Routine Memory loss Expected: 08/11/2022, Expires: 10/11/2022 [facility] Work Phone: Comment on above: Expected: 08/11/2022 , Expires: 10/11/2022 Start: 08-11-2022 End: 10-11-2022 TOURTELLOTTE BLOOD TOURTELLOTTE BLOOD Lab Routine Memory loss Expected: 08/11/2022, Expires: 10/11/2022 [facility] Work Phone: Comment on above: Expected: 08/11/2022 , Expires: 10/11/2022 Start: 06-20-2022 DEPRESSION ASSESSMENT DEPRESSION ASS [facility] Start: 02-18-2022 Influenza vaccination INFLUENZA (#1) [facility] Start: 06-20-2021 DEPRESSION ASSESSMENT DEPRESSION ASS ESSMENT [facility] Start: 05-29-2021 COVID-19 VACCINE (3 - Booster for Pfizer series) COVID-19 VACCINE (3 - Booster for Pfizer series) [facility] Start: 05-29-2021 COVID-19 VACCINE (3 - Pfizer series) COVID-19 VACCINE (3 - Pfizer series) [facility] Start: 2020 PROSTATE CANCER SCREENING DISCUSSION PROSTATE CANCER SCREENING DISCUSSION [facility] Start: 2020 Prostate specific antigen measurement Prostate Cancer Screening Discussion [facility] Start: 2015 SHINGRIX VACCINE (1 of 2) SHINGRIX VACCINE (1 of 2) [facility] Start: 2010 COLOGUARD (FIT-DNA) COLOGUARD (FIT-D NA) [facility] Start: 2010 Colonoscopy COLONOSCOPY [facility] Start: 2010 COLORECTAL CANCER SCREENING COLORECTAL CANCER SCREENING [facility] Start: [address] COLONOGRAPHY [facility] Start: 2010 DIABETES SCREEN DIABETES SCREEN [facility] Start: 2010 FECAL OCCULT BLOOD FECAL OCCULT BLOO D [facility] Start: 2010 Screening for malign ant neoplasm of colon [facility] Start: 2010 SIGMOIDOSCOPY SIGMOIDOSCOPY [facility] Start: 2000 Lipid 1996 panel - S flakita or Plasma Lipid Screening [facility] Start: 2000 Lipid panel Lipid Screening [facility] Start: 2000 LIPID SCREEN LIPID SCREEN [facility] Start: 1984 Hepatitis B Vaccine (1 of 3 - 19+ 3-dose series) Hepatitis B Vaccine (1 of 3 - 19+ 3-dose series) [facility] Start: 1984 Urine microalbumin profile [facility] Start: 1983 Anxiety Screening Anxiety Screening [facility] Start: 1983 Depression Screening Depression Scre ening [facility] Start: 1983 HEPATITIS C SCREENING HEPATITIS C [facility] Start: 1983 Hepatitis C screening Hepatitis C [facility] Start: 1983 HIV SCREENING HIV SCREENING [facility] Start: 1965 HEPATITIS B (1 of 3 - 3-dose series) HEPATITIS B (1 of 3 - 3-dose series) [facility] Start: 1965 Hepatitis B Vaccine (1 of 3 - 3-dose series) Hepatitis B Vaccine (1 of 3 - 3-dose series) [facility] End: 08-11-2023 LUMBAR PUNCTURE/YESICA LUMBAR PUNCTURE/YESICA NEUROLOGY Routine Memory loss 1 Occurrences starting 08/11/2022 until 08/11/2023 [facility] Work Phone: Comment on above: 1 Occurrences starti ng 08/11/2022 until 08/11/2023 End: 10-13-2023 LUMBAR PUNCTURE/YESICA LUMBAR PUNCTURE/YESICA NEUROLOGY Routine Memory loss 1 Occurrences starting 10/12/2022 until 10/13/2023 [facility] Work Phone: Comment on above: 1 Occurrences starti ng 10/12/2022 until 10/13/2023 End: 01-01-2024 PAP TITRATION PSG (CPAP, BIPAP, ASV) PAP TITRATION PSG (CPAP, BIPAP, ASV) Procedures Routine Obstructive sleep apnea 1 Occurrences starting 12/02/2022 until 01/01/2024 [facility] Work Phone: Comment on above: 1 Occurrences starti ng 12/02/2022 until 01/01/2024 Removal impacted cer umen irrigation/lvg unilat AMBULATORY EAR LAVAGE/IRRIGATION Procedures Routine Bilateral impacted cerumen Ordered: 04/22/2022 [facility] Work Phone: Comment on above: Ordered: 04/22/2022 TOURTELLOTTE CSF TOURTELLOTTE CS F Lab Routine Memory loss Ordered: 08/11/2022 [facility] Work Phone: Comment on above: Ordered: 08/11/2022 [facility] c [facility] c [facility] Payers Date Payer Category Payer Self-pay 2024 Unknown [id number] 2021 Unknown [id number] 1965 Unknown [id number] 2.16.8 [id number] 1965 Unknown [id number] 2.16.8 [id number] 1965 Unknown [id number] 2.16.84 [id number] 1965 Unknown [id number] 2.16.84 [id number] 1965 Unknown [id number] 2.16.84 [id number] 1965 Unknown [id number] 2.16.8 [id number] 1959 Unknown [id number] 1959 Unknown [id number] Unknown [id number] 2.16.8 [id number] Social History Date Type Detail Facility Start: 04-22-2022 End: 01-11-2024 Tobacco smoking status NHIS Never smoked tobacco [facility] Start: 04-22-2022 Tobacco use and exposure Smokeless tobacco non-user [facility] Start: 04-22-2022 End: 10-12-2022 Alcohol intake Ex-drinker (finding) [facility] Start: 1965 Sex Assigned At Not on file [facility] Start: 04-12-2022 End: 05-07-2022 Exposure to SARS-CoV-2 (event) Not sure [facility] Start: 10-12-2022 End: 11-17-2022 History of Social function [facility] Start: 10-12-2022 End: 11-17-2022 Tobacco use panel [facility] Adult Depression Screening Assessment [address] [facility] Start: 1965 Sex Assigned At Male F [facility] Functional Status Date Assessment Result Facility 01-11-2024 Functional Status N/A [facility] Clinical Notes 07-24-2020 to 03-09-2024 Telephone Encounter - Lisandra Gomez APRN.CNP - 03/09/2024 7:31 AM EDTTelephone Encounter - Lisandra Gomez APRN.CNP - 03/09/2024 7:31 AM EDTTelephone Encounter - Fried Domingo - 02/04/2023 8:37 AM EDT Note Date & Type Note Facility 03-09-2024 Telephone encounter Note I have refilled your prescription. A review of your chart shows that you have not had a follow up visit in more than 1 year. Refills for medications require at least 1 follow up visit per year. Please call: to schedule an appointment. Lisandra Gomez APRN.CNP [facility] 03-09-2024 Miscellaneous Notes I have refilled your prescription. A review of your chart shows that you have not had a follow up visit in more than 1 year. Refills for medications require at least 1 follow up visit per year. Please call: to schedule an appointment. Lisandra Gomez APRN.EFRAIN documented in this encounter [facility] 01-11-2024 Hospital Discharge instructions Patient Education 01/11/2024 10:19:55 Prostate Cancer Screening Prostate Cancer Screening Prostate cancer screening is testing that is done to check for the presence of prostate cancer in men. The prostate gland is a walnut-sized gland that is located below the bladder and in front of the rectum in males. The function of the prostate is to add fluid to semen during ejaculation. Prostate cancer is one of the most common types of cancer in men. Who should have prostate cancer screening? Screening recommendations vary based on age and other risk factors, as well as between the professional organizations who make the recommendations. In general, screening is recommended if: You are age 50 to 70 and have an average risk for prostate cancer. You should talk with your health care provider about your need for screening and how often screening should be done. Because most prostate cancers are slow growing and will not cause , screening in this age group is generally reserved for men who have a 10- to 15-year life expectancy. You are younger than age 50, and you have these risk factors: ?Having a father, brother, or uncle who has been diagnosed with prostate cancer. The risk is higher if your family member's cancer occurred at an early age or if you have multiple family members with prostate cancer at an early age. ?Being a male who is Black or is of [place] or sub-Saharan descent. In general, screening is not recommended if: You are younger than age 40. You are between the ages of 40 and 49 and you have no risk factors. You are 70 years of age or older. At this age, the risks that screening can cause are greater than the benefits that it may provide. If you are at high risk for prostate cancer, your health care provider may recommend that you have screenings more often or that you start screening at a younger age. How is screening for prostate cancer done? The recommended prostate cancer screening test is a blood test called the prostate-specific antigen (PSA) test. PSA is a protein that is made in the prostate. As you age, your prostate naturally produces more PSA. Abnormally high PSA levels may be caused by: Prostate cancer. An enlarged prostate that is not caused by cancer (benign prostatic hyperplasia, or BPH). This condition is very common in older men. A prostate gland infection (prostatitis) or urinary tract infection. Certain medicines such as male hormones (like testosterone) or other medicines that raise testosterone levels. A rectal exam may be done as part of prostate cancer screening to help provide information about the size of your prostate gland. When a rectal exam is performed, it should be done after the PSA level is drawn to avoid any effect on the results. Depending on the PSA results, you may need more tests, such as: A physical exam to check the size of your prostate gland, if not done as part of screening. Blood and imaging tests. A procedure to remove tissue samples from your prostate gland for testing (biopsy). This is the only way to know for certain if you have prostate cancer. What are the benefits of prostate cancer screening? Screening can help to identify cancer at an early stage, before symptoms start and when the cancer can be treated more easily. There is a small chance that screening may lower your risk of dying from prostate cancer. The chance is small because prostate cancer is a slow-growing cancer, and most men with prostate cancer from a different cause. What are the risks of prostate cancer screening? The main risk of prostate cancer screening is diagnosing and treating prostate cancer that would never have caused any symptoms or problems. This is called overdiagnosisand overtreatment. PSA screening cannot tell you if your PSA is high due to cancer or a different cause. A prostate biopsy is the only procedure to diagnose prostate cancer. Even the results of a biopsy may not tell you if your cancer needs to be treated. Slow-growing prostate cancer may not need any treatment other than monitoring, so diagnosing and treating it may cause unnecessary stress or other side effects. Questions to ask your health care provider When should I start prostate cancer screening? What is my risk for prostate cancer? How often do I need screening? What type of screening tests do I need? How do I get my test results? What do my results mean? Do I need treatment? Where to find more information The [place] [employer]: www.cancer.org [place] [employer]: www.auanet.org Contact a health care provider if: You have difficulty urinating. You have pain when you urinate or ejaculate. You have blood in your urine or semen. You have pain in your back or in the area of your prostate. Summary Prostate cancer is a common type of cancer in men. The prostate gland is located below the bladder and in front of the rectum. This gland adds fluid to semen during ejaculation. Prostate cancer screening may identify cancer at an early stage, when the cancer can be treated more easily and is less likely to have spread to other areas of the body. The prostate-specific antigen (PSA) test is the recommended screening test for prostate cancer, but it has associated risks. Discuss the risks and benefits of prostate cancer screening with your health care provider. If you are age 70 or older, the risks that screening can cause are greater than the benefits that it may provide. This information is not intended to replace advice given to you by your health care provider. Make sure you discuss any questions you have with your health care provider. Document Revised: 11/30/2021 Document Reviewed: 11/30/2021 [employer] Patient Education 2022 [employer]. Follow Up Care 12/23/2023 09:42:08 With:Santos PEÑA, Danni M., URL, URO Address: When: Unknown Comments:Pending MRI, may proceed with fusion bx [facility] Janice 01-11-2024 Note Urology Office/Clini c Note Chief Complaint referral for elevated PSA HPI Staff New pt referred by Dr. Lopez for elevated PSA. Last seen in office 04/06/[address] Amato. Dx: BPH with LUTS, elevated PSA, impotence. S/p TRUS/bx 01/05/16. PSA 12/19/15 - 4.16 12/23/15 - 4.08 & 5% 05/03/17 - 4.95 05/03/17 - 5.20 & 6% 03/31/18 - 5.03 & 6% (no other levels in this timeframe on [facility]) 12/16/23 - 7.5 & 4.9% Dysuria: no Incomplete bladder emptying: not at all per IPSS Hematuria: no Frequency: not at all Urgency: not at all Nocturia: rare maybe 1x Stream: good steady strong, no straining or intermittency. Leaking: no Post void dripping: no Wearing pads/ Depends: no Urge incontinence: no Stress incontinence: no Incontinence without Sensory Awareness: no Abdominal pain: no Flank pain: no Sexual complaints: no History of Present Illness Tests reviewed: reviewed UA, prior pathology, external referral records including labs, notes I have reviewed the previous health record information and history for this patient from Dr. Lopez and Dr. Amato I have reviewed and verified the staff HPI to be accurate for this encounter. Review of Systems PHQ Score Initial Depression Screen Score: 0 SCORE ROS - Provider Constitutional: denies weight loss, denies hot flashes. Eyes: denies eye problems. Gastrointestinal: denies nausea, denies vomiting. Cardiovascular: denies chest pain or angina. Integumentary: no dryness Musculoskeletal: denies musculoskeletal symptoms. ENMT: denies otolaryngeal symptoms. Respiratory: no shortness of breath. Heme/Lymph: denies easy bleeding tendency, denies easy bruising tendency. Psychiatric: no confusion, no anxiety. Genitourinary: See HPI. Physical Exam Vitals & Measurements T: 37 ?C(Temporal Artery) HR: 57(Peripheral) RR: 16 BP: 119/72 HT: 65 in HT: 165 cm WT: 74.5 kg WT: 163.9 lb BMI: 27.36 General Appearance: alert, no distress, well nourished, well developed male. Assessment/Plan 58 year old male new pt referred by Dr. Lopez for elevated PSA. Pt has dementia and is accompanied by his today. IPSS 0. MADDI 24. Not an ideal surgical candidate due to history of SBR, colostomy reversal and ventral hernia repair with mesh. 1. Elevated PSA (R97.20: Elevated prostate specific antigen [PSA]) PSA 12/19/15 - 4.16 12/23/15 - 4.08 & 5% 05/03/17 - 4.95 05/03/17 - 5.20 & 6% 03/31/18 - 5.03 & 6% (no other levels in this timeframe on [facility]) 12/16/23 - 7.5 & 4.9%, PSAD 0.32 - Pt does not recall any prostate manipulation prior to this level. S/p TRUS/bx 01/05/16. Tolerated well. (only 6 cores) CT 01/05/24 - negative. Prostate ~ 23.2 grams. UA today negative for blood and infection. Pt denies any urinary complaints today. Pt denies any urinary symptoms, no burning, frequency/urgency. No family history of prostate ca. Discussed unfavorable PSA density, low percent free. Discussed treatment options including biopsy vs MRI prostate to help detection of clinically significant cancers given his history of neg biopsy. We discussed risks of MRI fusion prostate biopsy approaches including transrectal and transperineal. Risks of the procedure were discussed to include but not be limited to bleeding, pain, infection (higher, including sepsis with transrectal approach), difficulties with urination, injury to the urethra, prostate or bladder or surrounding tissues, injury from positioning on the table, swelling and bruising of the skin, and need for further procedures. Pt prefers to be sedated during procedure. Pt elects to get MRI done first then biopsy. Pt is not on any blood thinners. Not an ideal surgical candidate due to history of SBR, colostomy reversal and ventral hernia repair with mesh. -Will schedule MRI @ [facility]. -Will schedule MRI fusion transperineal prostate biopsy under [facility] Follow-up With When Contact Information Santos PEÑA, Danni Portillo, URL, URO Additional Instructions: Pending MRI, may proceed with fusion bx Patient Education Prostate Cancer Screening I, Kiarra Brice, personally scribed for Dr. Graham on 01/11/2024 10:41:32. . Documentation recorded by the scribe, Kiarra Brice , accurately reflects the services(s) I performed and decisions made by me. Authenticated by Dr. Graham on 01/11/2024 11:41:36. Problem List/Past Medical History Ongoing Acute bronchitis Acute gastroenteritis Acute sinusitis Allergic rhinitis Arthralgia Asthma Chronic diarrhea Dementia GERD (gastroesophageal reflux disease) Hearing loss Hypercholesterolemia Mixed hyperlipidemia Poor short term memory Prediabetes Sleep apnea Small bowel perforation Tinnitus Vitamin D insufficiency Historical No qualifying data Procedure/Surgical History Primary mesh repair of inguinal hernia (2020), Colostomy of sigmoid (11/2018), Partial resection of colon (09/20/2018), Biopsy of pro (more content not included)... [facility] Comment on above: Result Comment: Elec tronically Signed By: Danni Graham MD\.br\Date and Time Signed: 01/11/24 11:41 EDT\.br\Electronically Co-Signed By: iKarra Brice\.br\Date and Time Co-Signed: 01/11/24 10:41 EDT 01-11-2024 Note Patient Education Oncology Prostate Cancer Screening Prostate cancer screening is testing that is done to check for the presence of prostate cancer in men. The prostate gland is a walnut-sized gland that is located below the bladder and in front of the rectum in males. The function of the prostate is to add fluid to semen during ejaculation. Prostate cancer is one of the most common types of cancer in men. Who should have prostate cancer screening? Screening recommendations vary based on age and other risk factors, as well as between the professional organizations who make the recommendations. In general, screening is recommended if: ? You are age 50 to 70 and have an average risk for prostate cancer. You should talk with your health care provider about your need for screening and how often screening should be done. Because most prostate cancers are slow growing and will not cause , screening in this age group is generally reserved for men who have a 10- to 15-year life expectancy. ? You are younger than age 50, and you have these risk factors: ? Having a father, brother, or uncle who has been diagnosed with prostate cancer. The risk is higher if your family member's cancer occurred at an early age or if you have multiple family members with prostate cancer at an early age. ? Being a male who is Black or is of [place] or sub-Saharan descent. In general, screening is not recommended if: ? You are younger than age 40. ? You are between the ages of 40 and 49 and you have no risk factors. ? You are 70 years of age or older. At this age, the risks that screening can cause are greater than the benefits that it may provide. If you are at high risk for prostate cancer, your health care provider may recommend that you have screenings more often or that you start screening at a younger age. How is screening for prostate cancer done? The recommended prostate cancer screening test is a blood test called the prostate-specific antigen (PSA) test. PSA is a protein that is made in the prostate. As you age, your prostate naturally produces more PSA. Abnormally high PSA levels may be caused by: ? Prostate cancer. ? An enlarged prostate that is not caused by cancer (benign prostatic hyperplasia, or BPH). This condition is very common in older men. ? A prostate gland infection (prostatitis) or urinary tract infection. ? Certain medicines such as male hormones (like testosterone) or other medicines that raise testosterone levels. A rectal exam may be done as part of prostate cancer screening to help provide information about the size of your prostate gland. When a rectal exam is performed, it should be done after the PSA level is drawn to avoid any effect on the results. Depending on the PSA results, you may need more tests, such as: ? A physical exam to check the size of your prostate gland, if not done as part of screening. ? Blood and imaging tests. ? A procedure to remove tissue samples from your prostate gland for testing (biopsy). This is the only way to know for certain if you have prostate cancer. What are the benefits of prostate cancer screening? ? Screening can help to identify cancer at an early stage, before symptoms start and when the cancer can be treated more easily. ? There is a small chance that screening may lower your risk of dying from prostate cancer. The chance is small because prostate cancer is a slow-growing cancer, and most men with prostate cancer from a different cause. What are the risks of prostate cancer screening? The main risk of prostate cancer screening is diagnosing and treating prostate cancer that would never have caused any symptoms or problems. This is called overdiagnosisand overtreatment. PSA screening cannot tell you if your PSA is high due to cancer or a different cause. A prostate biopsy is the only procedure to diagnose prostate cancer. Even the results of a biopsy may not tell you if your cancer needs to be treated. Slow-growing prostate cancer may not need any treatment other than monitoring, so diagnosing and treating it may cause unnecessary stress or other side effects. Questions to ask your health care provider ? When should I start prostate cancer screening? ? What is my risk for prostate cancer? ? How often do I need screening? ? What type of screening tests do I need? ? How do I get my test results? ? What do my results mean? ? Do I need treatment? Where to find more information ? The [place] Cancer Society: www.cancer.org ? [place] U[employer] Association: www.auanet.org Contact a health care provider if: ? You have difficulty urinating. ? You have pain when you urinate or ejaculate. ? You have blood in your urine or semen. ? You have pain in your back or in the area of your prostate. Summary ? Prostate cancer is a common type of cancer in men. The prostate gland is located below the bladder and in front of the rectum. (more content not included)... [facility] 12-06-2023 Telephone encounter Note The following approved medication requests have been transmitted electronically. Requested Prescriptions Signed Prescriptions Disp Refills donepezil (ARICEPT) 5 mg tablet 90 tablet 0 Sig: Take 1 tablet by mouth once daily. Authorizing Provider: LORRI PLASCENCIA Ordering User: TANISHA JEFFERS APRN.INSPECTOR OUTSIDE PRODUCTION [facility] 12-06-2023 Miscellaneous Notes The following approved medication requests have been transmitted electronically. Requested Prescriptions Signed Prescriptions Disp Refills donepezil (ARICEPT) 5 mg tablet 90 tablet 0 Sig: Take 1 tablet by mouth once daily. Authorizing Provider: LORRI PLASCENCIA Ordering User: TANISHA JEFFERS APRN.CNP documented in this encounter [facility] 03-07-2023 Miscellaneous Notes Summary: [facility] Baseline Interest A voicemail was left about participation in [facility] research study. documented in this encounter [facility] 02-09-2023 Miscellaneous Notes Astonish Results message sent documented in this encounter [facility] 02-08-2023 Miscellaneous Notes Summary: [facility] Potential Participant A call was made to of patient to talk about interest in participating in [facility]. expressed interest in participating. The [facility] consent document was sent through email. A call will be made in a week to discuss enrollment. documented in this encounter [facility] 02-04-2023 Miscellaneous Notes Images from the original note were not included. documented in this encounter [facility] 02-02-2023 Miscellaneous Notes The following approved medication requests have been transmitted electronically. Requested Prescriptions Signed Prescriptions Disp Refills donepezil (ARICEPT) 5 mg tablet 90 tablet 1 Sig: TAKE 1 TABLET BY MOUTH EVERY DAY Authorizing Provider: LORRI PLASCENCIA Ordering User: KIMO PATE APRN.CNP documented in this encounter [facility] 01-13-2023 Miscellaneous Notes Patient returned call, requested a call back. I left a message explaining the 4% requirement from Medicare, and advised to contact Medicare if they have insurance questions. Advised to call me back if they had other concerns or questions. Sandie Weinstein APRN.INSPECTOR OUTSIDE PRODUCTION documented in this encounter [facility] 01-11-2023 Note HNO ID: [id number] Author: Ana Jaffe RN Service: ? Author Type: Registered Nurse Type: Progress Notes Filed: 01/11/2023 11:19 AM Note Text: RN faxed LTD forms along with the last 2 office visits notes [facility]: [phone], confirmation received, patient made aware. Ana Jaffe RN [facility] 01-11-2023 Note HNO ID: [id number] Author: Ana Jaffe RN Service: ? Author Type: Registered Nurse Type: Progress Notes Filed: 01/11/2023 11:09 AM Note Text: RN received LTD claim forms from [facility]. Noted: Forms have already been completed on 12/02/2022, patient was made aware at that time. Will send another message to patient's spouse to let them know that I will re-send the forms along with the last 2 office visit notes. Ana Jaffe RN [facility] 12-03-2022 Miscellaneous Notes Faxed order, office notes, demographics, and sleep study to: DME name: [facility] DME fax: [phone] DME ph: documented in this encounter [facility] 12-02-2022 Note HNO ID: [id number] Author: Sandie Weinstein APRN.CNP Service: ? Author Type: Nurse Practitioner Type: Progress Notes Filed: 12/02/2022 3:32 PM Note Text: [facility] Sleep Disorders Center Follow up/ [...] will have a prescription sent to a [employer] medical [employer]) company - [employer] who will be calling you in the next 1-2 weeks or so. Please call them directly or us if you do not hear from them in this time frame. - You should be eligible for new supplies approximately every 3-6 months, depending on your insurance coverage. - If your mask doesn't fit well, call the [employer] company before 30 days are up to get a new mask without an additional charge. - Insurance requires regular usage and periodic office follow ups for PAP therapy, to continue to cover supplies. - Follow up in 2 months in the office. Recommend scheduling this appointment now to ensure the best time for you. Roosevelt Merlos PGY-[address] Sleep [address] [facility] I have supervised and discussed the patient case with the Sleep Medicine Fellow including interviewing the patient in person and have updated the electronic medical record where necessary. I agree with the history, physical, impression and recommendations as documented. Gera Cardoan, , CBSM, ABSM Clinical Staff Sleep Medicine [facility] Sleep Disorders Center [address] [place] [address] [place] [address] I have communicated my name and active licensure. The patient's identity and physical location were verified at the time of this visit. Either the patient or their legal sales representative cash registers has been informed of the risks and benefits of -- and alternatives to -- treatment through a remote evaluation and consents to proceed with the evaluation remotely. Interval history : Here for follow up for SHELBY follow up after starting PAP therapy. ; SLEEP APNEA Sleep apnea type : SHELBY, Most Recent Apnea-Hypopnea Index (AHI): 47.7 Treatment : PAP therapy DME: [facility] PAP History: Uses Bilevel PAP for 2 [...] or near accidents due to drowsy drivin [place] Sleepiness Scale 04/28/2022 Score Incomplete PROMIS CAT [...] onc (more content not included)... [facility] 12-02-2022 History of Present illness Narrative Images from the original note were not included. [facility] Sleep Disorders Center Follow up/ [...] will have a prescription sent to a DME (durable medical equipment) company - [facility] who will be calling you in the [...] for you. Roosevelt Merlos PGY-4 Sleep fellow [facility] I have supervised and discussed the patient case with the Sleep Medicine Fellow including interviewing the patient in person and have updated the electronic medical record where necessary. I agree with the history, physical, impression and recommendations as documented. Gera Cardona DO, CBSM, ABSM Clinical Staff Sleep Medicine [facility] Neurological [place] [facility] [address] [place] [address] I have communicated my name and active licensure. The patient's identity and physical location were verified at the time of this visit. Either the patient or their legal sales representative cash registers has been informed of the risks and benefits of -- and alternatives to -- treatment through a remote evaluation and consents to proceed with the evaluation remotely. Interval history : Here for follow up for SHELBY follow up after starting PAP therapy. ; SLEEP APNEA Sleep apnea type : SHELBY, Most Recent Apnea-Hypopnea Index (AHI): 47.7 Treatment : PAP therapy DME: [facility] PAP History: Uses Bilevel PAP for 2 [...] or near accidents due to drowsy drivin [place] Sleepiness Scale 04/28/2022 Score Incomplete PROMIS CAT [...] study. All questions were answered. Sandie Weinstein APRN.CNP I spent a total of 30 minutes on the date of the service which included preparing to see the patient, [id number] patient care, completing clinical documentation, obtaining and/or reviewing separately obtained history, counseling and educating the patient/family/caregiver, ordering medications, tests, or procedures, and communicating results to the patient/family/caregiver. documented in this encounter [facility] 11-17-2022 Note HNO ID: [id number] Author: Lorri Plascencia MD Service: ? Author Type: Physician Type: Progress Notes Filed: 11/17/2022 5:40 PM Note Text: Noé Jeffery [address] [place] [id number] November 17, 2022 [facility] Report Virtual Virtual visit with Patient and family members Chief complaint: poor memory, forgetfulness I have communicated my name and active licensure. The patient's identity and physical location were verified at the time of this visit. Either the patient or their legal sales representative cash registers has been informed of the risks and [...] that time. 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 He recalls forgetting a clip/tie for his gun one day. He also failed firearm safety training which is required every months. He states he is still able to perform ADLs at home and still able to work in his other job with [employer]. 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 [facility] 11-17-2022 Instructions Lorri Plascencia MD - 11/17/2022 [...] are our recommendations: - Cognitive [facility] at [facility]. - Aricept 5 mg daily with breakfast - Namenda 5 twice a day with breakfast and dinner. - Maintain physically, socially and cognitively healthy lifestyle. - Schedule in person report in February 2023. Please schedule next visit with Lorri Plascencia MD, PhD or Kimo Pate NP in person in February -March 2023 To schedule testing and visits please call: [phone]. If you have new, unexpected concerns in between visits please call our office at [phone] ( you will be able to reach one of our nurses). [facility] fax [phone] Ways to keep your brain healthy: Follow [...] fish and fish high in mercury (swordfish, Citizen [place] sea martinez, orange roughy, ahi tuna, albacore [...] resources are: The Alzheimer's Association (web site: alz.org/moseley) available 24 hours a day, 7 days per week. Contact: Local: ; Toll free: [phone] Family Caregiver [place] (web site: Caregiver.org) MARLEEN Hawkins-- a secure online solution for quality information, support, and resources for family caregivers. Contact: Toll-free number: [phone] Alzheimers.gov - Find Alzheimer disease and related dementias information, resources, research and more. documented in this encounter [facility] 11-17-2022 History of Present illness Narrative Images from the original note were not included. Noé Jeffery [address] [place] [address] November 17, 2022 [facility] Virtual Virtual visit with Patient and family members Chief complaint: poor memory, forgetfulness I have communicated my name and active licensure. The patient's identity and physical location were verified at the time of this visit. Either the patient or their legal sales representative cash registers has been informed of the risks and [...] that time. 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 He recalls forgetting a clip/tie for his gun one day. He also failed firearm safety training which is required every months. He states he is still able to perform ADLs at home and still able to work in his other job with [employer]. 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 Bradycardia. PLAN: - [facility] referral - Cognitive therapy at [facility]. - Aricept 5 mg daily with breakfast [...] . Lorri Plascencia MD, PhD Geriatric Psychiatry [facility] CC: 1. No primary care provider on file., (fax) None documented in this encounter [facility] 11-12-2022 Note HNO ID: [id number] Author: Nataly Lafleur Service: ? Author Type: ? Type: Progress Notes Filed: 11/12/2022 8:54 AM Note Text: 11/12 Forms signed and faxed back. Scanned in [facility]. [facility] 11-10-2022 Note HNO ID: [id number] Author: Ana Jaffe RN Service: ? Author Type: Registered Nurse Type: Progress Notes Filed: 11/10/2022 9:26 AM Note Text: Disability forms filled out, will give to the provider when back in office to review and sign. Ana Jaffe RN [facility] 11-09-2022 Note HNO ID: [id number] Author: Nataly Lafleur Service: ? Author Type: ? Type: Progress Notes Filed: 11/09/2022 10:14 AM Note Text: 11/09 Rec'd via fax [facility] [employer] Disability Insurance form, scanned into [facility] [employer] and gave to Ana Dejesus For review. [facility] 10-12-2022 Note HNO ID: [id number] Author: Miguelito Chicas APRN.EFRAIN Service: ? Author Type: Nurse Practitioner Type: Progress Notes Filed: 10/12/2022 2:33 PM Note Text: [facility] PROCEDURE FOR DIAGNOSTIC TESTING Noé Jeffery, [id number] October 12, 2022, 8:57 AM INFORMED CONSENT The risks, benefits and anticipated outcomes of the procedure, the risks and benefits of the alternatives to the procedure and the roles and tasks of the personnel to be involved were discussed with the patient, who consents to the procedure and agrees to proceed. I verify that I personally obtained Noé Jeffery's consent, Miguelito Chicas APRN.INSPECTOR OUTSIDE PRODUCTION UNIVERSAL PROTOCOL / SAFETY CHECKLIST Procedure to [...] HR 56 Procedure: Performed by: Miguelito Chicas APRN.INSPECTOR OUTSIDE PRODUCTION Asst: Tanisha jeffers RN / Ana Jaffe [...] BP 117/74 Pulse (!) 58 Miguelito Chicas APRN.INSPECTOR OUTSIDE PRODUCTION October 12, 2022 [facility] 10-12-2022 Nurse Note [facility] LUMBAR PUNCTURE NURSE DISCHARGE NOTE The [...] Tanisha Jeffers RN documented in this encounter [facility] 10-12-2022 Instructions Miguelito Chicas APRN.INSPECTOR OUTSIDE PRODUCTION - 10/12/2022 10:31 AM EDT Images from the original note were not included. [facility] Neurological [place] GOING HOME INSTRUCTIONS POST LP HEADACHE Prevention [...] as coffee or tea You can take udiy-rvk-tqwqybj Tylenol and/or Ibuprofen as directed INFECTION PREVENTION [...] from 8-5pm, please contact our office line [phone] and then hit 0 , please ask our administrative dietitian to page the provider who performed the spinal tap. -For nights or weekends, call or toll free and ask the switch house operator the page the Neurology resident on-call. 2. If your headache is unusually severe regardless of bedrest or lasts more than two days 3. If you develop a fever 4. If you notice inflammation, pus formation or clear drainage from the site of the needle puncture You may resume your usual activities after 48 hours. documented in this encounter [facility] 10-12-2022 History of Present illness Narrative [facility] PROCEDURE FOR DIAGNOSTIC TESTING Noé Jeffery, [id number] October 12, 2022, 8:57 AM INFORMED CONSENT The risks, benefits and anticipated outcomes of the procedure, the risks and benefits of the alternatives to the procedure and the roles and tasks of the personnel to be involved were discussed with the patient, who consents to the procedure and agrees to proceed. I verify that I personally obtained Noé Jeffery's consent, Miguelito Chicas APRN.CNP UNIVERSAL PROTOCOL / SAFETY CHECKLIST Procedure to [...] APRN.CNP Pre-Procedure Labs: Component Latest Ref Rng & [...] Procedural site marked, verified by: Miguelito Chicas APRN.INSPECTOR OUTSIDE PRODUCTION Site: L4-5 AUDIBLE TIME OUT: 1045 EST, [...] October 12, 2022 documented in this encounter [facility] 10-04-2022 Note HNO ID: [id number] Author: Leah Mckeon RN Service: ? Author Type: Registered Nurse Type: Progress Notes Filed: 10/04/2022 12:56 PM Note Text: Entered in error. Leah Mckeon RN [facility] 08-12-2022 Note HNO ID: [id number] Author: Leah Mckeon RN Service: ? Author [...] Abs Lymph 1.00 - 4.00 k/uL 1.45 Stutsman% % 6.2 Abs Stutsman <0.87 k/uL 0.31 Eosin% % 0.6 Abs Eosin <0.46 k/uL 0.03 Baso% % 0.8 Abs Baso <0.11 k/uL 0.04 Immature Gran % % 0.2 IMMATURE GRANS (ABS) <0.10 k/uL <0.03 NRBC /100 WBC 0.0 Absolute nRBC <0.01 k/uL <0.01 DTYPE Auto Care Coordination Interventions: none Leah Mckeon RN [facility] 08-12-2022 History of Present illness Narrative PRE-LUMBAR [...] Abs Lymph 1.00 - 4.00 k/uL 1.45 Stutsman% % 6.2 Abs Stutsman <0.87 k/uL 0.31 Eosin% % 0.6 Abs Eosin <0.46 k/uL 0.03 Baso% % 0.8 Abs Baso <0.11 k/uL 0.04 Immature Gran % % 0.2 IMMATURE GRANS (ABS) <0.10 k/uL <0.03 NRBC /100 WBC 0.0 Absolute nRBC <0.01 k/uL <0.01 DTYPE Auto Care Coordination Interventions: none Leah Mckeon RN documented in this encounter [facility] 08-11-2022 Note HNO ID: [id number] Author: Lorri Plascencia MD Service: ? Author Type: Physician Type: Progress Notes Filed: 08/11/2022 3:58 PM Note Text: Noé Jeffery [address] [place] [id number] August 11, 2022 Time: 2:35 PM [facility] OUTPATIENT VISIT TYPE New Patient [...] that time. 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 [facility] 08-11-2022 Instructions Lorri Plascencia MD - 08/11/2022 [...] To schedule testing and visits please call: [phone]. If you have new, unexpected concerns in between visits please call our office at [phone] ( you will be able to reach one of our nurses). [facility] fax [phone] Ways to keep your brain healthy: Follow [...] fish and fish high in mercury (swordfish, [place] sea martinez, orange roughy, ahi tuna, albacore [...] resources are: The Alzheimer's Association (web site: alz.org/moseley) available 24 hours a day, 7 days per week. Contact: Local: ; Toll free: [phone] Family Caregiver [place] (web site: Caregiver.org) MARLEEN Hawkins-- a secure online solution for quality information, support, and resources for family caregivers. Contact: Toll-free number: 706.150.8758 Alzheimers.gov - Find Alzheimer disease and related dementias information, resources, research and more. documented in this encounter [facility] 08-11-2022 History of Present illness Narrative Images from the original note were not included. Noé Jeffery [address] [place] [phone] August 11, 2022 Time: 2:35 PM [facility] Health OUTPATIENT VISIT TYPE New [...] that time. 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 He recalls forgetting a clip/tie for his gun one day. He also failed firearm safety training which is required every months. He states he is still able to perform ADLs at home and still able to work in his other job with [employer]. 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 2 children. Social History Tobacco Use Smoking status: Never Smokeless tobacco: Never Substance Use Topics Alcohol use: Not Currently Social History reviewed by Lorri Plascencia MD PAST MEDICAL HISTORY Diagnosis Date COVID-19 virus infection 04/2020 DM2 (diabetes mellitus, type 2) ([facility]) GERD (gastroesophageal reflux disease) HLD (hyperlipidemia) Vital [...] . Lorri Plascencia MD, PhD Geriatric Psychiatry [facility] CC: 1. No primary care provider on file., (fax) None documented in this encounter [facility] 07-22-2022 Note HNO ID: [id number] Author: Lorri Plascencia MD Service: ? Author Type: Physician Type: Progress Notes Filed: 07/22/2022 11:10 AM Note Text: No show. Connection aborted after 15 min. of waiting online [facility] 07-22-2022 History of Present illness Narrative No show. Connection aborted after 15 min. of waiting online [facility] documented in this encounter [facility] 05-07-2022 Miscellaneous Notes Radiology Service [...] DATA: Not applicable SIGNED BY: Nicole Huffman nutritionist public health May 07, 2022 1:31 PM documented in this encounter [facility] 04-30-2022 Instructions Roosevelt Merlos MD [...] will have a prescription sent to a [employer] company - [employer] who will be calling you in the next 1-2 weeks or so. Please call them directly or us if you do not hear from them in this time frame. - You should be eligible for new supplies approximately every 3-6 months, depending on your insurance coverage. - If your mask doesn't fit well, call the [employer] company before 30 days are up to get a new mask without an additional charge. - Insurance requires regular usage and periodic office follow ups for PAP therapy, to continue to cover supplies. - Follow up in 2 months in the office. Recommend scheduling this appointment now to ensure the best time for you. [facility] Requirements - Your insurance requires a yvng-hq-fzrq follow up visit within a 31-90 day [...] for BiPAP supplies. documented in this encounter [facility] 04-30-2022 History of Present illness Narrative Images from the original note were not included. [facility] Sleep Disorders Center New Patient Evaluation PATIENT NAME: Noé Jeffery DATE OF SERVICE: April 30, 2022 CONSULTING PROVIDER: Narciso Guerra [address] [facility] [address] REASON FOR CONSULT: Narciso Guerra sends the [...] or near accidents due to drowsy drivin [place] Sleepiness Scale 04/28/2022 Score Incomplete PROMIS CAT [...] infection 04/2020 DM2 (diabetes mellitus, type 2) ([facility]) GERD (gastroesophageal reflux disease) HLD (hyperlipidemia) No [...] will have a prescription sent to a [employer] company - [facility] who will be calling you in the next 1-2 weeks or so. Please call them directly or us if you do not hear from them in this time frame. - You should be eligible for new supplies approximately every 3-6 months, depending on your insurance coverage. - If your mask doesn't fit well, call the [employer] company before 30 days are up to get a new mask without an additional charge. - Insurance requires regular usage and periodic office follow ups for PAP therapy, to continue to cover supplies. - Follow up in 2 months in the office. Recommend scheduling this appointment now to ensure the best time for you. Roosevelt Merlos PGY-[address] [facility] I have supervised and discussed the patient case with the Sleep Medicine Fellow including interviewing the patient in person and have updated the electronic medical record where necessary. I agree with the history, physical, impression and recommendations as documented. Gera Cardona DO, CBSM, ABSM Clinical Staff Sleep Medicine [facility] Neurological [facility] [address] [address] [place] [address] documented in this encounter [facility] 04-26-2022 History of Present illness Narrative Sleep Study Check-In Documentation Date: April 26, 2022 Name: Noé Jeffery Patient was accompanied by Spouse. Location: Latex allergy: No Tape allergy: No Current [...] RESMED Make AIRFIT N20 MaskTypeFull Face Mask SizeMar Beaver Used No Knowledge Program (KP): KP was not completed in [facility] by patient and accepted Study type: Split Study-Polysomnogram with CPAP titration Adverse Event: No (If yes create a new abstract) SERS Event: No Comments: Patient was advised to follow up with their ordering provider regarding test results [place] April 25, 2022 Standing PSG Orders signed in the last 90 days None Future PSG Orders signed in the last 90 days Ordered Auth. provider POLYSOMNOGRAM (PSG) [[id number]] 04/22/22 Narciso Guerra MD Assoc. diagnoses: Cognitive [...] Add EtCO2 or Transcutaneous CO2 if available Roosevelt Merlos MD - Sleep Medicine Staff Note: I have read the above protocol, edited as needed, and agree to the plan. Roosevelt Merlos MD 7:01 PM, 04/25/2022 Sleep Medicine Staff Note: I have read the above protocol, edited as needed, and agree to the plan. Douglas Nielson MD 8:46 PM 04/25/2022 documented in this encounter [facility] 04-22-2022 History of Present illness Narrative Head and Neck [place] AUDIOLOGIC EVALUATION REPORT Name: Noé Jeffery CCF#: [id number] Date of Service: 04/22/2022 Date of : 1965 Age: [age] year old Referred by: Narciso Guerra [address] [facility] [address] Referred for: Evaluation of the cause of disorder of hearing, tinnitus, or balance. Referral documented: In an order in [facility] Patient's major complaints: Noé reported he feels [...] seen for an initial audiologic evaluation. See [facility] Audiogram for additional reported history and symptoms. [...] evaluation of middle ear function. CPT code: 55058 RIGHT EAR: Tympanogram that was flat, with no identifiable peak and reduced TM mobility consistent with a conductive pathology (wax). LEFT EAR: Normal ME pressure and TM compliance (mobility). ACOUSTIC REFLEXES Description of procedure: This test is an objective measure of auditory and facial nerve pathways. CPT code: 04612, 99651 RIGHT EAR PROBE EAR: (ipsi right stimulus [...] bone conduction and speech recognition testing. CPT code:07376 RIGHT EAR: Hearing Sensitivity: Did not test. Word Recognition Score: Did not test. LEFT EAR: Hearing Sensitivity: Did not test. Word Recognition Score: Did not test. RECOMMENDATIONS Medical follow up for removal of bilateral impacted cerumen. Patient will see [facility] today. Hearing Test after #1. Juana Horta, ARIE/A Clinical Skein Dyer JIMENEZ Abbrev- iation Definition Degree of hearing sensitivity dB range WNL within normal limits WNL 0 - 20 SNHL sensorineural hearing loss Mild 20-40 CHL conductive hearing loss Moderate 40-55 MHL mixed hearing loss Moderately-Severe 55-70 WRS word recognition score Severe 70-90 ME middle ear Profound 90 + TM tympanic membrane documented in this encounter [facility] 04-22-2022 History of Present illness Narrative This note was created using [employer]. Subjective Noé Jeffery is a 56 year [...] externa of left ear, unspecified type Plan: mpvhjhwy-yvyokfiox-zpzkxnyaroysm e (CORTISPORIN) 3.5-10,000-1 mg/mL-unit/mL-% otic suspension Use as directed Follow up with PCP if symptoms worsen or do not improve Brenda Blanco APRN.EFRAIN April 22, 2022 documented in this encounter [facility] 04-22-2022 Instructions Brenda Blanco APRN.EFRAIN - 04/22/2022 4:23 PM EDT Cerumen Patient [...] made for swimming. documented in this encounter [facility] 07-27-2020 Note MR#: [id number] I [facility] Pt. Name: Noé Jeffery Admitted: [...] Ga MD Date Trans: 07/27/2020 03:32 A/patricia [id number] cc: Paul Lopez M.D. [address] [id number] [facility] 07-24-2020 Note MR#: [id number] I [facility] Pt. Name: Noé Jeffery Admitted: [...] personal documentation from me. Date Dict: 07/23/2020/06:08 Mckenzie/Ayanna Ga MD Date Trans: 07/24/2020 10:00 Salty/patricia [id number] cc: Paul Lopez M.D. [address] [place] [address] [facility] Evaluation + Plan note No data available for this section [facility] Evaluation note Diagnosis Bilateral impacted cerumen- Primary Impacted cerumen Elevated blood pressure reading without diagnosis of hypertension Acute otitis externa of left ear, unspecified type documented in this encounter [facility] note* Diagnosis Bilateral impacted cerumen- Primary Impacted cerumen [facility]* Diagnosis Sleep apnea, unspecified type- Primary Sleep hypopnea Other sleep disturbances documented in this encounter [facility] note* Diagnosis SHELBY (obstructive sleep apnea)- Primary Obstructive sleep apnea (adult) (pediatric) documented in this encounter [facility] note* Diagnosis Memory loss [facility]* Diagnosis Memory loss- Primary documented [facility] this [facility]* Diagnosis Memory loss- Primary Encounter for lumbar puncture documented in this encounter [facility] note* Diagnosis Alzheimer's disease (HCC)- Primary Alzheimer's disease [facility] this [facility]* Diagnosis Obstructive sleep apnea- Primary Obstructive sleep apnea (adult) (pediatric) Primary central sleep apnea Hyperlipidemia, unspecified hyperlipidemia type documented [facility] this [facility]* Diagnosis Alzheimer's disease (HCC)- Primary Alzheimer's disease documented in this encounter [facility] note* Diagnosis Research study patient- Primary documented in this encounter [facility] note* Diagnosis Cognitive changes Other signs and symptoms involving cognition documented in this encounter [facility] note* Diagnosis Alzheimer's disease (HCC) Alzheimer's disease [facility] this [facility]* Diagnosis Alzheimer's disease (HCC) Alzheimer's disease documented in this encounter [facility] noteNo assessment information availableWhite Hospital Work Phone: Hospital Discharge instructions No data available for this section [facility] Progress note No data available for this section [facility] Purpose Family History No Family History Records FoundNo Family History Records FoundNo Family History Records FoundNo Family History Records Found No data available for this section No data available for this section No Family History Records FoundNo Family History [...] CONSULT TO SLEEP MEDICINE - ADULT OFFICE/OUTPATIENT [facility] 60-74 MINUTES Narciso Guerra MD [address] [place] [address] Referral ID Status Reason Start Date Expiration Date Visits Requested Visits Authorized [id number] Authorized PCP Requested Referral 04/28/2022 04/28/2023 1 1 Specialty Diagnoses / Procedures Referred By Naseem t Referred To Contact [facility] Diagnoses Alzheimer's disease (HCC) Procedures CONSULT TO SPEECH THERAPY OFFICE/OUTPATIENT [facility] 60-74 MINUTES Lorri Plascencia MD [address] [id number] [facility] [place] [address] Referral ID Status Reason Start Date Expiration Date Visits Requested Visits Authorized [id number] Pending Review Auto-Generat ed Referral 11/17/2022 11/17/2023 1 1 Specialty Diagnoses / Procedures Referred By Naseem araujo Referred To Contact [facility] IMAGING Diagnoses Cognitive changes Procedures MRI 3D POST PROCESSING 3D RENDERING W/INTERP&POSTPROC DIFF WORK STATION Narciso Guerra MD [address] [place] [address] Mr [facility] [place] [address] Referral ID Status Reason Start Date Expiration Date V isits Requested Visits Authorized [id number] Closed Auto-Generate d Referral 04/22/2022 05/22/2023 1 1 Specialty Diagnoses / Procedures Referred By Naseem araujo Referred To Contact MR IMAGING Diagnoses Cognitive changes Procedures MRI BRAIN WO IVCON MRI BRAIN BRAIN STEM W/O CONTRAST MATERIAL Narciso Guerra MD [address] [place] [address] Mr [facility] Referral ID Status Reason Start Date Expiration Date V isits Requested Visits Authorized [id number] Closed Auto-Generate d Referral 04/22/2022 06/06/2022 1 1 Chief Complaint and Reason for Visit Chief Complaint ELEVATED PSA Additional Source Comments (unrecognized sect ion and content) No Status Records FoundNo Status Records FoundNo Status Records FoundNo Status Records FoundNo Status Records FoundNo Status Records Found INFORMATION SOURCE (unrecogn ized section and content) DATE CREATED AUTHOR 04/15/2021 [facility] DATE CREATED AUTHOR AUTHOR'S ORGANIZ ATION 05/09/2022 [facility] DATE CREATED AUTHOR AUTHOR'S ORGANIZ ATION 10/28/2022 [facility] DATE CREATED AUTHOR AUTHOR'S ORGANIZ ATION 05/24/2023 [facility] DATE CREATED AUTHOR AUTHOR'S ORGANIZ ATION 03/18/2024 [facility] DATE CREATED AUTHOR AUTHOR'S ORGANIZ ATION 04/19/2024 [facility] Source Comments (unrecognize d section and content) In the event this informatio n is protected by the Federal Confidentiality of Alcohol and Drug Abuse Patient Records regulations: The Federal rules restrict any use of the information to criminally investigate or prosecute any alcohol or drug abuse patient.[facility] the event this information is protected by the Federal Confidentiality of Alcohol and Drug Abuse Patient Records regulations: The Federal rules restrict any use of the information to criminally investigate or prosecute any alcohol or drug abuse patient.[facility] the event this information is protected by the Federal Confidentiality of Alcohol and Drug Abuse Patient Records regulations: The Federal rules restrict any use of the information to criminally investigate or prosecute any alcohol or drug abuse patient.[facility] the event this information is protected by the Federal Confidentiality of Alcohol and Drug Abuse Patient Records regulations: The Federal rules restrict any use of the information to criminally investigate or prosecute any alcohol or drug abuse patient.[facility] the event this information is protected by the Federal Confidentiality of Alcohol and Drug Abuse Patient Records regulations: The Federal rules restrict any use of the information to criminally investigate or prosecute any alcohol or drug abuse patient.[facility] the event this information is protected by the Federal Confidentiality of Alcohol and Drug Abuse Patient Records regulations: The Federal rules restrict any use of the information to criminally investigate or prosecute any alcohol or drug abuse patient.[facility] the event this information is protected by the Federal Confidentiality of Alcohol and Drug Abuse Patient Records regulations: The Federal rules restrict any use of the information to criminally investigate or prosecute any alcohol or drug abuse patient.[facility] the event this information is protected by the Federal Confidentiality of Alcohol and Drug Abuse Patient Records regulations: The Federal rules restrict any use of the information to criminally investigate or prosecute any alcohol or drug abuse patient.[facility] the event this information is protected by the Federal Confidentiality of Alcohol and Drug Abuse Patient Records regulations: The Federal rules restrict any use of the information to criminally investigate or prosecute any alcohol or drug abuse patient.[facility] the event this information is protected by the Federal Confidentiality of Alcohol and Drug Abuse Patient Records regulations: The Federal rules restrict any use of the information to criminally investigate or prosecute any alcohol or drug abuse patient.[facility] the event this information is protected by the Federal Confidentiality of Alcohol and Drug Abuse Patient Records regulations: The Federal rules restrict any use of the information to criminally investigate or prosecute any alcohol or drug abuse patient.[facility] the event this information is protected by the Federal Confidentiality of Alcohol and Drug Abuse Patient Records regulations: The Federal rules restrict any use of the information to criminally investigate or prosecute any alcohol or drug abuse patient.[facility] Center[facility] the event this information is protected by the Federal Confidentiality of Alcohol and Drug Abuse Patient Records regulations: The Federal rules restrict any use of the information to criminally investigate or prosecute any alcohol or drug abuse patient.[facility] Center[facility] the event this information is protected by the Federal Confidentiality of Alcohol and Drug Abuse Patient Records regulations: The Federal rules restrict any use of the information to criminally investigate or prosecute any alcohol or drug abuse patient.[facility] Center[facility] the event this information is protected by the Federal Confidentiality of Alcohol and Drug Abuse Patient Records regulations: The Federal rules restrict any use of the information to criminally investigate or prosecute any alcohol or drug abuse patient.[facility] Center[facility] the event this information is protected by the Federal Confidentiality of Alcohol and Drug Abuse Patient Records regulations: The Federal rules restrict any use of the information to criminally investigate or prosecute any alcohol or drug abuse patient.[facility] CenterIn the event this information is protected by the Federal Confidentiality of Alcohol and Drug Abuse Patient Records regulations: The Federal rules restrict any use of the information to criminally investigate or prosecute any alcohol or drug abuse patient.[facility] the event this information is protected by the Federal Confidentiality of Alcohol and Drug Abuse Patient Records regulations: The Federal rules restrict any use of the information to criminally investigate or prosecute any alcohol or drug abuse patient.[facility] CenterIn the event this information is protected by the Federal Confidentiality of Alcohol and Drug Abuse Patient Records regulations: The Federal rules restrict any use of the information to criminally investigate or prosecute any alcohol or drug abuse patient.[facility] CenterIn the event this information is protected by the Federal Confidentiality of Alcohol and Drug Abuse Patient Records regulations: The Federal rules restrict any use of the information to criminally investigate or prosecute any alcohol or drug abuse patient.[facility] CenterIn the event this information is protected by the Federal Confidentiality of Alcohol and Drug Abuse Patient Records regulations: The Federal rules restrict any use of the information to criminally investigate or prosecute any alcohol or drug abuse patient.[facility]In the event this information is protected by the Federal Confidentiality of Alcohol and Drug Abuse Patient Records regulations: The Federal rules restrict any use of the information to criminally investigate or prosecute any alcohol or drug abuse patient.[facility] CenterIn the event this information is protected by the Federal Confidentiality of Alcohol and Drug Abuse Patient Records regulations: The Federal rules restrict any use of the information to criminally investigate or prosecute any alcohol or drug abuse patient.[facility] CenterIn the event this information is protected by the Federal Confidentiality of Alcohol and Drug Abuse Patient Records regulations: The Federal rules restrict any use of the information to criminally investigate or prosecute any alcohol or drug abuse patient.[facility] CenterIn the event this information is protected by the Federal Confidentiality of Alcohol and Drug Abuse Patient Records regulations: The Federal rules restrict any use of the information to criminally investigate or prosecute any alcohol or drug abuse patient.[facility] CenterIn the event this information is protected by the Federal Confidentiality of Alcohol and Drug Abuse Patient Records regulations: The Federal rules restrict any use of the information to criminally investigate or prosecute any alcohol or drug abuse patient.[facility] Reason for Visit (unrecogniz ed section and content) Reason Comments Earwax Bilateral ear Specialty Diagnoses / Procedures Referred By Davidac t Referred To Contact Diagnoses Bilateral hearing loss, unspecified hearing loss type Procedures HEARING TEST/AUDIOGRAM COMPRE AUDIOMETRY THRESHOLD EVAL SP RECOGNIJ Narciso Guerra MD [address] [place] [address] [facility] [address] [place] [address] Referral ID Status Reason Start Date Expiration Date V isits Requested Visits Authorized [id number] Closed Auto-Generate d Referral 04/22/2022 07/21/2022 1 1 Reason Comments New Patient Evaluation Had sleep study d one. Specialty Diagnoses / Procedures Referred By Naseem t Referred To Contact Diagnoses Sleep apnea, unspecified type Sleep hypopnea Procedures CONSULT TO SLEEP MEDICINE - ADULT OFFICE/OUTPATIENT [facility] 60-74 MINUTES Narciso Guerra MD [address] [place] [address] Referral ID Status Reason Start Date Expiration Date V isits Requested Visits Authorized [id number] Closed PCP Requested Referral 04/28/2022 04/28/2023 1 1 Reason Comments Memory Loss Specialty Diagnoses / Procedures Referred By Naseem t Referred To Contact Neurology Diagnoses Memory loss Procedures CONSULT TO NEUROLOGY OFFICE/OUTPATIENT [facility] 60-[place] [address] [place] [address] Referral ID Status Reason Start Date Expiration Date V isits Requested Visits Authorized [id number] Closed PCP Requested Referral 06/22/2022 06/22/2023 1 1 Reason Comments Lumbar Puncture Reason Comments Memory Loss Reason Comments Sleep Apnea Reason Comments PAP Rx Faxed DME: [facility] Reason Comments Returning Patient's Call Reason Comments Refill Request Reason Comments PAP Therapy Follow Up 12/18/22 - 01/16/23 L AST FOUND DL FROM DME Reason Comments Research [facility] (IRB [id number]) I nterest Reason Comments Research [facility] ([facility] [id number]) Specialty Diagnoses / Procedures Referred By Contac t Referred To Contact MR IMAGING Diagnoses Cognitive changes Procedures MRI BRAIN WO IVCON MRI BRAIN BRAIN STEM W/O CONTRAST MATERIAL Narciso Guerra MD [address] [facility] [place] [address] [place] [address] Referral ID Status Reason Start Date Expiration Date V isits Requested Visits Authorized [id number] Closed Auto-Generate d Referral 04/22/2022 06/06/2022 1 1 Reason Onset Date Comments Refill Request 12/06/2023 Patient Care team informatio n (unrecognized section and content) Team Status: Active Member Role Status Dates Paul Lopez MD Primary Care Provider Active Team Status: Inactive Member Role Status Dates Danni Graham MD Attending Provider Active Start : March 15, 2024 End: March 15, 2024 Paul Lopez MD Primary Care Provider Active Start: March 15, 2024 End: March 15, 2024 Goals (unrecognized section and content) Goals may be documented in a n alternate section FOR RECORDS PERTAINING TO PATIENTS WHO ARE [...] BE BASED ON THE PRIMARY CLINICAL RECORDS. [facility]. provides no warranty or guarantee of the accuracy or completeness of information in this document.
--- NOTE | 2024-06-09 10:12 | XR_ITS ---
The [address] [address] Patient Name: ESTELLA JEFFERY MRN: [id number] date: 1965 Sex: M Assigned Patient Location: ER Current Patient Location: .[facility] Accession/Order Number: [id number] Exam Date: 06/09/2024 10:15 Report Date: 06/09/2024 11:16 At the request of: MEGAN KITCHEN Procedure: XR ankle RT min 3V PROCEDURE: XR ankle RT min 3V, XR tibia fibula RT 2V, 06/09/2024 10:15 AM EST CLINICAL INDICATIONS: Traumatic injury, fall, right lower extremity pain COMPARISON: None TECHNIQUE: Right ankle 3 views. Right tibia-fibula 4 views. FINDINGS: RIGHT ANKLE: The bones are normal in density. 0.8 cm subchondral lucency is identified in the medial talar dome, not well confirmed on the lateral projection. Articular margin is congruent. Additional fracture is not seen. Plantar calcaneal enthesopathy noted. No ankle effusion. TIBIA FIBULA: Proximal tibia and fibula are intact. Acute osseous pathology is not evident. Moderate tricompartment osteoarthrosis is noted of the knee. Knee effusion is not evident. Regional soft tissues normal. XR/XR ankle RT min 3V IMPRESSION: 1. 0.8 cm subchondral lucency in the medial talar dome, worrisome for osteochondral injury/lesion, age undetermined. Not well confirmed on the lateral projection. Articular margin appears congruent. 2. No additional acute traumatic right tibia, fibula or ankle pathology 3. Moderate tricompartment osteoarthrosis of the knee, no significant knee effusion 4. Plantar calcaneal enthesopathy Electronically authenticated by: DAFNE MONSALVE Date: 06/09/2024 11:16
--- NOTE | 2024-06-09 10:12 | XR_ITS ---
[address] [address] Patient Name: ESTELLA JEFFERY MRN: [id number] date: 1965 Sex: M Assigned Patient Location: ER Current Patient Location: .[facility] Accession/Order Number: [id number] Exam Date: 06/09/2024 10:15 Report Date: 06/09/2024 11:16 At the request of: MEGAN KITCHEN Procedure: XR tibia fibula RT 2V PROCEDURE: XR ankle RT min 3V, XR tibia fibula RT 2V, 06/09/2024 10:15 AM EST CLINICAL INDICATIONS: Traumatic injury, fall, right lower extremity pain COMPARISON: None TECHNIQUE: Right ankle 3 views. Right tibia-fibula 4 views. FINDINGS: RIGHT ANKLE: The bones are normal in density. 0.8 cm subchondral lucency is identified in the medial talar dome, not well confirmed on the lateral projection. Articular margin is congruent. Additional fracture is not seen. Plantar calcaneal enthesopathy noted. No ankle effusion. TIBIA FIBULA: Proximal tibia and fibula are intact. Acute osseous pathology is not evident. Moderate tricompartment osteoarthrosis is noted of the knee. Knee effusion is not evident. Regional soft tissues normal. XR/XR tibia fibula RT 2V IMPRESSION: 1. 0.8 cm subchondral lucency in the medial talar dome, worrisome for osteochondral injury/lesion, age undetermined. Not well confirmed on the lateral projection. Articular margin appears congruent. 2. No additional acute traumatic right tibia, fibula or ankle pathology 3. Moderate tricompartment osteoarthrosis of the knee, no significant knee effusion 4. Plantar calcaneal enthesopathy Electronically authenticated by: DAFNE MONSALVE Date: 06/09/2024 11:16
[2024-06-09 12:42] LABS: Amphetamine Screen Urine NEGATIVE (NEGATIVE); Barbiturates Screen Urine NEGATIVE (NEGATIVE); Benzodiazepines Screen Urine NEGATIVE (NEGATIVE); Cannabinoid Screen Urine NEGATIVE (NEGATIVE); Cocaine Screen Urine NEGATIVE (NEGATIVE); Methadone Screen Urine NEGATIVE (NEGATIVE); Methamphetamines Screen Urine NEGATIVE (NEGATIVE); Opiate Screen Urine NEGATIVE (NEGATIVE); Oxycodone Screen Urine NEGATIVE (NEGATIVE); Phencyclidine Screen Urine NEGATIVE (NEGATIVE); Tricyclic Antidepressant Urine NEGATIVE (NEGATIVE)
[2024-06-09 12:43] LABS: Buprenorphine Screen Urine NEGATIVE (NEGATIVE)
== END 2024-06-09 13:50 | disposition home or self-care (01) ==
PROVIDERS: Emergency Provider Emergency Medicine; PCP Family Medicine
DX: M79.671 Pain in right foot (principal); G30.9 Alzheimer's disease, unspecified; F02.80 Dementia in other diseases classified elsewhere, unspecified severity, without behavioral disturbance, psychotic disturbance, mood disturbance, and anxiety; S80.811A Abrasion, right lower leg, initial encounter; W10.8XXA Fall (on) (from) other stairs and steps, initial encounter; R41.0 Disorientation, unspecified
CPT/HCPCS: 36415; 70450; 71045; 72125; 73590; 73610; 80053; 80307; 84484; 85025; 85610; 93005; 99285

== ENCOUNTER 2024-06-25 06:37 | Emergency (ER) | payer OTHER, SELFPAY ==
[2024-06-25 06:43] VITALS: BP 114/71; PULSE 77; TEMP 36.8; O2SAT 96; BMI 25.2
--- NOTE | 2024-06-25 06:53 | CT_ITS ---
The [address] [address] Patient Name: ESTELLA JEFFERY MRN: [id number] date: 1965 Sex: M Assigned Patient Location: ER Current Patient Location: ER Accession/Order Number: [id number] Exam Date: 06/25/2024 07:05 Report Date: 06/25/2024 07:22 At the request of: IZAIAH MARKER Procedure: CT head/brain wo con EXAM: CT head/brain wo con HISTORY: AMS, hx dementia. COMPARISON: None. TECHNIQUE: Contiguous transaxial images were obtained from skull base to vertex without administration of intravenous contrast. Dose reduction: mA and/or kV are were adjusted by automated exposure control software based upon patients height and weight. FINDINGS: There is no focal scalp soft tissue swelling or acute calvarial fracture. The visualized globes and orbits are grossly normal. Visualized paranasal sinuses are clear. Bilateral mastoid air cells are clear. The ventricles and sulci are prominent bilaterally. There is periventricular and deep subcortical white matter low attenuation, most consistent with small vessel ischemic disease. There is no intraparenchymal hemorrhage, extraaxial fluid collection, or acute large territory ischemia by noncontrast CT. There is a tiny 2 mm hyperdense focus near the foramen of Monro. CT/CT head/brain wo con IMPRESSION: 1. No acute intracranial hemorrhage or acute large territory ischemia by noncontrast CT. 2. Tiny 2 mm hyperdense focus within the anterosuperior aspect of the third ventricle near the foramen of Monro. This may represent a tiny colloid cyst. If the patient has a focal neurologic deficit or there is clinical suspicion for acute cerebrovascular accident, brain MRI would be recommended for further evaluation. Electronically authenticated by: ELIS WICK Date: 06/25/2024 07:22
--- NOTE | 2024-06-25 06:54 | ED_ITS ---
HPI - Altered Mental Status General Chief Complaint: Altered Mental Status Stated Complaint: ALTERED MENTAL STATE Time Seen by Provider: 06/25/24 06:43 History of Present Illness HPI narrative: This 58-year-old male with a history of dementia that was diagnosed at [facility] several years ago is brought to the emergency department by EMS accompanied by his who is the chief historian. The patient has had several outbursts recently that are out of the ordinary for him. The patient's states that over the holidays he had a fall. His confusion seems to be increased since that time. Last night the patient and his and daughter were staying at his sister's house. He had his CPAP on and his heard it making a noise and she had just taken a shower. She was wearing a On her hair because it was wet and went in to adjust his CPAP machine which appeared to st artle him and he became very agitated. Apparently the police and/or EMS was called at that time and he was taken to [facility] for evaluation. He had blood work done and was released home after he spoke to [facility] and a safety plan was in place. Again this morning the patient was sleeping on a couch and his was on the other end of the couch when he woke up and was in an unfamiliar place and became confused and agitated. The patient's called for his sister who usually helps to calm him down, she came running and the dog started barking and he again became extremely agitated. That has since passed. The patient states he still feels confused. He knows he is in a hospital but cannot recall which hospital it is. He has not had any additional recent illness or injury. The patient's states that his episodic outbursts of agitation and increasing confusion are new to her. She is tearful. She request that a CT scan be done as it was not performed last night at [facility]. The patient knows his name and knows that he is in the hospital and knows he lives in [place] but cannot recall his address or date of . Related Data Home Medications ?Medication ?Instructions ?Recorded ?Confirmed No Known Home Medications 06/09/24 06/09/24 Allergies Allergy/AdvReac Type Severity Reaction Status Date / Time No Known Drug Allergies Allergy Verified 06/09/24 09:22 Review of Systems ROS Status of ROS 10 or more systems reviewed and unremark able except as noted in history and below Exam Narrative Exam Narrative: Vital signs and Nursing Notes reviewed: General: Alert, nontoxic but confused adult male, GCS 15, no respiratory distress HEENT: Normocephalic atraumatic, mucous membranes are moist and pink, eyes are clear, normal conjunctiva, vision is grossly intact, posterior pharynx is normal in appearance. Small abrasion over the bridge of the nose due to the CPAP machine Neck: Supple, non tender Chest: Lungs are clear to auscultation with good air entry, there is no wheezing rhonchi or rales appreciated no accessory muscle use, patient is speaking in complete sentences-no chest wall tenderness to palpation CVS: Regular rate and rhythm S1-S2, no murmurs rubs or gallops, pulses are brisk and equal bilaterally ABD: Soft, nondistended, nontender, no rebound guarding or rigidity, bowel sounds are normal, no pulsatile masses appreciated Extremities: Moving all extremities, no lower extremity tenderness or swelling noted, negative Homans' sign, pulses are brisk and equal bilaterally Skin: Normal in appearance without rash,pallor, petechiae or purpura Neuro: Speech is clear, short-term memory is poor, patient is awake, alert, oriented to person and knows that he is in the hospital. He was told that he was at the [facility] and then I asked him if he remembered which hospital he was and he could not recall. 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 He acknowledges that he is confused and appears to be somewhat fearful regarding this. Discharge Plan Discharge Chief Complaint: Altered Mental Status Clinical Impression: Dementia without behavioral disturbance Patient Disposition: Still a Patient Prescriptions / Home Meds: No Action No Known Home Medications Print Language: Gambian Referrals: Jae Cruz MD [Primary Care Provider] - 1 week
--- NOTE | 2024-06-25 07:34 | ED_ITS ---
HPI HPI - General Adult General Chief complaint: Altered Mental Status Stated complaint: ALTERED MENTAL STATE Time Seen by Provider: 06/25/24 06:43 Source: patient and family Source information: Mode of arrival: ambulance Limitations: altered mental status History of Present Illness HPI narrative: 58-year-old male presented to the emergency department and was initially seen by Dr. Goyal. The patient was signed out to me after discussing the case with her thoroughly. Please see her full history and physical exam. Related Data Home Medications ?Medication ?Instructions ?Recorded ?Confirmed No Known Home Medications 06/09/24 06/09/24 Allergies Allergy/AdvReac Type Severity Reaction Status Date / Time No Known Drug Allergies Allergy Verified 06/09/24 09:22 Opioid HPI Opioid Management Most Recent Opioid Data: Ur Phencyclidine Scrn Negative (NEGATIVE) 06/09/24 11:50 05/21 07/13 Exam Constitutional Vital Signs, click to edit/add: Last Vital Signs Temp 98.2 F 06/25/24 06:43 Pulse 77 06/25/24 06:43 Resp 18 06/25/24 06:43 BP 114/71 06/25/24 06:43 Pulse Ox 96 06/25/24 06:43 O2 Del Method Room Air 06/25/24 06:43 Course Vital Signs Vital signs: Vital Signs Temperature 98.2 F 06/25/24 06:43 Pulse Rate 77 06/25/24 06:43 Respiratory Rate 18 06/25/24 06:43 Blood Pressure 114/71 06/25/24 06:43 Pulse Oximetry 96 06/25/24 06:43 Oxygen Delivery Method Room Air 06/25/24 06:43 Temperature 98.2 F 06/25/24 06:43 Pulse Rate 77 06/25/24 06:43 Respiratory Rate 18 06/25/24 06:43 Blood Pressure 114/71 06/25/24 06:43 Pulse Oximetry 96 06/25/24 06:43 Oxygen Delivery Method Room Air 06/25/24 06:43 Medical Decision Making MDM Narrative Medical decision making narrative: CT brain is negative. Findings are discussed with family and the patient is able to be discharged home. Differential Diagnosis Differential Diagnosis: Dementia, altered mental status, behavioral issue Imaging Data CT scan - head: Radiologist's impression: ITS Impressions Head CT 06/25/24 06:53 IMPRESSION: 1. No acute intracranial hemorrhage or acute large territory ischemia by noncontrast CT. 2. Tiny 2 mm hyperdense focus within the anterosuperior aspect of the third ventricle near the foramen of Monro. This may represent a tiny colloid cyst. If the patient has a focal neurologic deficit or there is clinical suspicion for acute cerebrovascular accident, brain MRI would be recommended for further evaluation. Electronically authenticated by: ELIS WICK Date: 06/25/2024 07:22 Discharge Plan Discharge Chief Complaint: Altered Mental Status Clinical Impression: Dementia without behavioral disturbance Patient Disposition: Home, Self-Care Time of Disposition Decision: 07:33 Condition: Good Mode of Transportation: Private Vehicle Prescriptions / Home Meds: No Action No Known Home Medications Print Language: Armenian Instructions: Dementia (ED) Referrals: Jae Cruz MD [Primary Care Provider] - 1 week
[2024-06-25 07:45] VITALS: PULSE 82; O2SAT 98
== END 2024-06-25 07:46 | disposition home or self-care (01) ==
PROVIDERS: Emergency Provider Emergency Medicine; PCP Family Medicine
DX: F03.90 Unspecified dementia, unspecified severity, without behavioral disturbance, psychotic disturbance, mood disturbance, and anxiety (principal)
CPT/HCPCS: 70450; 99284

== ENCOUNTER 2024-06-25 18:11 | Emergency (ER) | payer OTHER, SELFPAY ==
--- NOTE | 2024-06-25 18:12 | ECG_ITS ---
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
--- NOTE | 2024-06-25 18:15 | ED.GENADUL1 ---
HPI HPI - General Adult General Chief complaint: Psychiatric Symptoms Stated complaint: night terrors Time Seen by Provider: 06/25/24 18:12 Source: patient and family History of Present Illness HPI narrative: Patient is a 58-year-old male with a history of dementia who was referred to the emergency department by his primary care provider for admission for altered mental status. Patient was seen yesterday for a behavioral outburst at [facility] emergency department, his workup was unremarkable but the family was concerned because he did not have a CT scan so they brought the patient to this emergency department earlier this morning. CT scan was unremarkable. PCP was contacted this afternoon by the patient's family because he continues to be confused with behavioral outburst and is combative at home. states that when he wakes up from a nap, he is confused as to who they are and he has been physically aggressive at home. He has not had any new falls or injuries since his CT scan this morning. Patient is calm, pleasant at initial interview and denies any areas of pain or recent illness. He has no focal medical complaints at this time. Related Data Home Medications ?Medication ?Instructions ?Recorded ?Confirmed No Known Home Medications 06/09/24 06/09/24 Allergies Allergy/AdvReac Type Severity Reaction Status Date / Time No Known Drug Allergies Allergy Verified 06/09/24 09:22 Opioid HPI Opioid Management Most Recent Opioid Data: Ur Phencyclidine Scrn Negative (NEGATIVE) 06/25/24 18:35 06/25/24 Review of Systems ROS Constitutional Denies: fever or chills Ears, nose, mouth, and throat Denies: throat pain or nasal congestion Cardiovascular Denies: chest pain Respiratory Denies: shortness of breath Gastrointestinal Denies: nausea or vomiting Musculoskeletal Denies: back pain or neck pain Integumentary/Breast Denies: rash Neurological Reports: confusion and behavioral changes; Denies: numbness in extremities or weakness in extremities Psychiatric Reports: irritability Hematologic/Lymphatic Denies: easy bruising or easy bleeding PFSH PFSH Social History Little interest or pleasure in doing things: not at all Feeling down, depressed, or hopeless: not at all Exam Narrative Exam Narrative: Gen.: Awake, alert, in no distress Head: Normocephalic, atraumatic ENT: Moist mucous membranes Respiratory: No respiratory distress, lungs clear bilaterally Cardio: Regular rate and rhythm Gastrointestinal: Abdomen is soft, nondistended and nontender to palpation Extremities: Moves extremities equally, no injuries noted Psych: Normal mood and affect Neuro: At baseline, no focal deficit noted Skin: Warm, dry, intact Constitutional Vital Signs, click to edit/add: Last Vital Signs Temp 98.1 F 06/25/24 18:18 Pulse 74 06/25/24 18:18 Resp 16 06/25/24 18:18 BP 142/80 H 06/25/24 18:18 Pulse Ox 98 06/25/24 18:18 Course Vital Signs Vital signs: Vital Signs Temperature 98.1 F 06/25/24 18:18 Pulse Rate 74 06/25/24 18:18 Respiratory Rate 16 06/25/24 18:18 Blood Pressure 142/80 H 06/25/24 18:18 Pulse Oximetry 98 06/25/24 18:18 Temperature 98.1 F 06/25/24 18:18 Pulse Rate 74 06/25/24 18:18 Respiratory Rate 16 06/25/24 18:18 Blood Pressure 142/80 H 06/25/24 18:18 Pulse Oximetry 98 06/25/24 18:18 Medical Decision Making MDM Narrative Medical decision making narrative: 2025: Patient is calm and cooperative in the ER, saline lock was placed and EKG, labs and urine specimen were obtained, these are all unremarkable and the patient is cleared medically for evaluation by psychiatric services for possible [facility] psych placement. Case is turned over to attending physician at this time for disposition. SHARED APC VISIT, PHYSICIAN ATTESTATION: [id number] I performed a substantive part of the MDM during the patient?s E/M visit. I personally evaluated and examined the patient. I personally made or approved the documented management plan and acknowledge its risk of complications. Medical Records Medical records reviewed: Yes I reviewed the patient's medical records Lab Data Lab results reviewed: Yes I reviewed the patient's lab results Labs: Lab Results 06/25/24 06/25/24 Range/Units 18:30 18:35 WBC 5.7 (4.0-11.0) 10^3/uL RBC 5.64 (4.70-6.10) 10^6/uL Hgb 13.6 L (14.0-18.0) g/dL Hct 43.0 (42.0-54.0) % MCV 76.2 L (80.0-94.0) fL MCH 24.1 L (25.9-34.0) pg MCHC 31.6 (29.9-35.2) g/dL RDW 14.3 (11.0-15.0) % Plt Count 173 (150-450) 10^3/uL MPV 9.7 (9.5-13.5) fL Neut % (Auto) 67.2 (43.0-75.0) % Lymph % (Auto) 25.7 (20.5-60.0) % Ray % (Auto) 5.8 (1.7-12.0) % Eos % (Auto) 0.7 L (0.9-7.0) % Baso % (Auto) 0.3 (0.2-2.0) % Neut # (Auto) 3.9 (1.4-6.5) 10^3/uL Lymph # (Auto) 1.5 (1.2-3.8) 10^3/uL Ray # (Auto) 0.3 (0.3-0.8) 10^3/uL Eos # (Auto) 0.0 (0.0-0.7) 10^3/uL Baso # (Auto) 0.0 (0.0-0.1) 10^3/uL Abs Immat Gran (auto) 0.02 (0.00-0.03) 10^3/uL Imm/Tot Granulo (auto) 0.3 (0.0-0.5) % Sodium 141 (136-145) mmol/L Potassium 3.8 (3.5-5.1) mmol/L Chloride 104 (98-107) mmol/L Carbon Dioxide 26.6 (21.0-32.0) mmol/L Anion Gap 14.2 BUN 15.0 (7.0-18.0) mg/dL Creatinine 1.10 (0.70-1.30) mg/dL Est GFR ( Amer) >60 (>=60 mL/min/1.73m^2) Est GFR (Non-Af Amer) >60 (>=60 mL/min/1.73m^2) BUN/Creatinine Ratio 13.6 Glucose 175 H (74-106) mg/dL Calcium 8.2 L (8.5-10.1) mg/dL Total Bilirubin 0.4 (0.2-1.0) mg/dL AST 10 L (15-37) U/L ALT 17 (16-63) U/L Alkaline Phosphatase 76 (46-116) U/L Total Protein 6.7 (6.4-8.2) g/dL Albumin 3.5 (3.4-5.0) g/dL Globulin 3.2 g/dL Albumin/Globulin Ratio 1.1 TSH 1.810 (0.358-3.740) uIU/mL Urine Color Lt. yellow (YELLOW) Urine Clarity Clear (CLEAR) Urine pH 6.5 (5.0-9.0) Ur Specific Daggett <=1.005 A (1.005-1.025) Urine Protein Negative (NEG/TRACE) mg/dL Urine Glucose (UA) Negative (NEGATIVE) mg/dL Urine Ketones Negative (NEGATIVE) mg/dL Urine Occult Blood Negative (NEGATIVE) Urine Nitrite Negative (NEGATIVE) Urine Bilirubin Negative (NEGATIVE) Urine Urobilinogen 0.2 (0.2-1.0) EU/dL Ur Leukocyte Esterase Negative (NEGATIVE) Salicylates <2.8 (<=19.9) mg/dL Urine Opiates Screen Negative (NEGATIVE) Ur Buprenorphine Scrn Negative (NEGATIVE) Ur Oxycodone Screen Negative (NEGATIVE) Urine Methadone Screen Negative (NEGATIVE) Acetaminophen <2.0 L (10.0-30.0) ug/mL Ur Barbiturates Screen Negative (NEGATIVE) U Tricyclic Antidepress Negative (NEGATIVE) Ur Phencyclidine Scrn Negative (NEGATIVE) Ur Amphetamines Screen Negative (NEGATIVE) U Methamphetamines Scrn Negative (NEGATIVE) U Benzodiazepines Scrn Negative (NEGATIVE) Urine Cocaine Screen Negative (NEGATIVE) U Cannabinoids Screen Negative (NEGATIVE) Ethanol Quant <4 mg/dL SARS-CoV-2 Ag (CV2AG) Negative (NEGATIVE) ECG Data Attestation: I personally reviewed and interpreted this ECG as follows: (Normal sinus rhythm at a rate of 72, no acute ST elevation or ectopy. EKG reviewed by attending physician) Discharge Plan Discharge Chief Complaint: Psychiatric Symptoms Clinical Impression: Combative behavior Patient Disposition: Still a Patient Prescriptions / Home Meds: No Action No Known Home Medications Print Language: Andorran Referrals: Jae Cruz MD [Primary Care Provider] - 1 week
[2024-06-25 18:18] VITALS: BP 142/80; PULSE 74; TEMP 36.7; O2SAT 98; BMI 26.8
[2024-06-25 18:24] VITALS: BP 131/81; PULSE 76; O2SAT 99
[2024-06-25 18:51] LABS: Basophils Percent Auto 0.3 % (0.2-2.0); Eosinophils Percent Auto 0.7 % (0.9-7.0); Hemoglobin 13.6 g/dL (14.0-18.0); Immature Granulocytes Abs Auto 0.02 10^3/uL (0.00-0.03); Immature Granulocytes Pct Auto 0.3 % (0.0-0.5); Lymphocytes Absolute Auto 1.5 10^3/uL (1.2-3.8); Lymphocytes Percent Auto 25.7 % (20.5-60.0); Mean Corpuscular HGB Conc 31.6 g/dL (29.9-35.2); Mean Corpuscular Hemoglobin 24.1 pg (25.9-34.0); Mean Corpuscular Volume 76.2 fL (80.0-94.0); Mean Platelet Volume 9.7 fL (9.5-13.5); Monocytes Absolute Auto 0.3 10^3/uL (0.3-0.8); Monocytes Percent Auto 5.8 % (1.7-12.0); Neutrophils Absolute Auto 3.9 10^3/uL (1.4-6.5); Neutrophils Percent Auto 67.2 % (43.0-75.0); Platelet Count 173 10^3/uL (150-450); Red Blood Count 5.64 10^6/uL (4.70-6.10); Red Cell Distribution Width 14.3 % (11.0-15.0); White Blood Count 5.7 10^3/uL (4.0-11.0)
[2024-06-25 19:03] LABS: Internal Control Within Normal Limits; SARS-CoV-2 Ag NEGATIVE (NEGATIVE)
[2024-06-25 19:08] LABS: Bilirubin Urine NEGATIVE (NEGATIVE); Blood Urine NEGATIVE (NEGATIVE); Clarity Urine CLEAR (CLEAR); Color Urine LT. YELLOW (YELLOW); Glucose Urine UA NEGATIVE (NEGATIVE); Ketones Urine NEGATIVE (NEGATIVE); Leukocyte Esterase Urine NEGATIVE (NEGATIVE); Nitrite Urine NEGATIVE (NEGATIVE); Protein Urine NEGATIVE (NEG/TRACE); Specific Gravity Urine <=1.005 (1.005-1.025); Urobilinogen Urine 0.2 EU/dL (0.2-1.0); pH Urine 6.5 (5.0-9.0)
[2024-06-25 19:15] LABS: Urine Microscopic Indicated NO
--- NOTE | 2024-06-25 19:40 | PC.NURSE ---
Dinner of dessert apples, broccoli, and chicken noodle casserole given. Pt is taking this well.
[2024-06-25 19:44] LABS: Acetaminophen <2.0 ug/mL (10.0-30.0); Alanine Aminotransferase 17 U/L (16-63); Albumin Globulin Ratio 1.1; Albumin Level 3.5 g/dL (3.4-5.0); Alkaline Phosphatase 76 U/L (46-116); Anion Gap 14.2; Aspartate Amino Transferase 10 U/L (15-37); BUN Creatinine Ratio 13.6; Bilirubin Total 0.4 mg/dL (0.2-1.0); Calcium 8.2 mg/dL (8.5-10.1); Carbon Dioxide 26.6 mmol/L (21.0-32.0); Chloride 104 mmol/L (98-107); Estimated GFR (African America >60 (>=60 mL/min/1.73m^2); Estimated GFR (Non-African Ame >60 (>=60 mL/min/1.73m^2); Ethanol <4 mg/dL; Globulin 3.2 g/dL; Glucose 175 mg/dL (74-106); Potassium 3.8 mmol/L (3.5-5.1); Salicylate <2.8 mg/dL (<=19.9); Sodium 141 mmol/L (136-145); Total Protein 6.7 g/dL (6.4-8.2)
[2024-06-25 19:46] LABS: Amphetamine Screen Urine NEGATIVE (NEGATIVE); Barbiturates Screen Urine NEGATIVE (NEGATIVE); Benzodiazepines Screen Urine NEGATIVE (NEGATIVE); Cannabinoid Screen Urine NEGATIVE (NEGATIVE); Cocaine Screen Urine NEGATIVE (NEGATIVE); Methadone Screen Urine NEGATIVE (NEGATIVE); Methamphetamines Screen Urine NEGATIVE (NEGATIVE); Opiate Screen Urine NEGATIVE (NEGATIVE); Oxycodone Screen Urine NEGATIVE (NEGATIVE); Phencyclidine Screen Urine NEGATIVE (NEGATIVE); Tricyclic Antidepressant Urine NEGATIVE (NEGATIVE)
[2024-06-25 19:47] LABS: Buprenorphine Screen Urine NEGATIVE (NEGATIVE)
--- NOTE | 2024-06-25 19:58 | PC.NURSE ---
TIANNAP from [facility] in to speak with pt. and family.
--- NOTE | 2024-06-25 20:36 | PC.NURSE ---
[facility] left room. Family at the bedside.
[2024-06-25] MEDS: LORAZEPAM 0.5 MG TABLET 1 MG PO (20:49)
--- NOTE | 2024-06-25 21:04 | PC.NURSE ---
Pt states that he feels more relaxed. and sisters at the bedside.
--- NOTE | 2024-06-25 21:19 | PC.NURSE ---
Pt reports some relief of anxiety SP ativan administration.
--- NOTE | 2024-06-25 22:09 | PC.NURSE ---
Leonila P states that pt's family prefer [facility], however, this facility cannot accept him tonight, but state they can accept in the morning.
--- NOTE | 2024-06-25 22:31 | ED_ITS ---
HPI - Psych General Chief Complaint: Psychiatric Symptoms Stated Complaint: night terrors Time Seen by Provider: 06/25/24 18:12 Source: Reports patient and family Mode of arrival: walk-in Limitations: Reports no limitations History of Present Illness HPI Narrative: This patient was seen and evaluated in conjunction with the physician tiler's assistant and Dr. Briscoe. He was seen by myself earlier this morning at the end of my shift. He was brought to the emergency department accompanied by his . He has recently been having increasing behavioral outbursts and agitation. He has a diagnosis of dementia that was established by [facility] several years ago. The patient has been having episodes of irritability, agitation confusion and some degree of physicality with his family upon awakening. He had been seen yesterday at [facility] and discharged home with his family. He was returned to this emergency department in the morning because they wish to have a CT scan performed that was not performed at the other facility. CT scan was done at this facility and he was discharged home only to have additional episodic outbursts during the day. He was referred back to the emergency depar tment by his family physician. He was recently given a trial of Rexulti by his family physician but has not had time to acclimate to it. In the emergency department he has been calm, cooperative. He was medically cleared and seen by P with recommendation for [facility] psych admission. The patient has episodes of clear cognition in which he admits that he is very scared and is tearful. 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 He is currently unemployed and feels that he is becoming a burden to his family. He denies any suicidality. It was recommended after he was medically cleared that he be admitted psychiatrically for stabilization. Multiple facilities were contacted by P. Ultimately he will be excepted for transfer to [facility], however a bed will not be available till morning. This was discussed with the patient and family who will stay with him in this emergency department overnight. He was medicated with a dose of oral Ativan for his anxiety while awaiting transfer. The patient slept for several hours and awakened abruptly around 5:30 AM time he became acutely anxious and walked out of the room. He was met by myself and the nursing staff. He is anxious but cooperative and agreed to return to the bed. I offered him an additional dose of Ativan which he shall he declined but ultimately accepted. He was given 1 mg of IM Ativan at that time. The patient seems more coherent than he was when I saw him yesterday morning and the patient's states that he is much more relaxed than he has been in the past 36 hours. He does not appear to be as confused as yesterday morning and is answering questions appropriately. He remained hemodynamically stable while awaiting transfer arrangements. Related Data Home Medications ?Medication ?Instructions ?Recorded ?Confirmed No Known Home Medications 06/09/24 06/09/24 Allergies Allergy/AdvReac Type Severity Reaction Status Date / Time No Known Drug Allergies Allergy Verified 06/09/24 09:22 [facility] Social History Little interest or pleasure in doing things: not at all Feeling down, depressed, or hopeless: not at all Exam Constitutional Vital Signs, click to edit/add: Last Vital Signs Temp 98.1 F 06/25/24 18:18 Pulse 88 06/26/24 11:34 Resp 18 06/26/24 11:34 BP 128/88 06/26/24 11:34 Pulse Ox 98 06/26/24 11:34 Course Vital Signs Vital signs: Vital Signs Temperature 98.1 F 06/25/24 18:18 Pulse Rate 74 06/25/24 18:18 Respiratory Rate 16 06/25/24 18:18 Blood Pressure 142/80 H 06/25/24 18:18 Pulse Oximetry 98 06/25/24 18:18 Temperature 98.1 F 06/25/24 18:18 Pulse Rate 88 06/26/24 11:34 Respiratory Rate 18 06/26/24 11:34 Blood Pressure 128/88 06/26/24 11:34 Pulse Oximetry 98 06/26/24 11:34 MDM - Psych Lab Data Labs: Lab Results 06/25/24 06/25/24 Range/Units 18:30 18:35 WBC 5.7 (4.0-11.0) 10^3/uL RBC 5.64 (4.70-6.10) 10^6/uL Hgb 13.6 L (14.0-18.0) g/dL Hct 43.0 (42.0-54.0) % MCV 76.2 L (80.0-94.0) fL MCH 24.1 L (25.9-34.0) pg MCHC 31.6 (29.9-35.2) g/dL RDW 14.3 (11.0-15.0) % Plt Count 173 (150-450) 10^3/uL MPV 9.7 (9.5-13.5) fL Neut % (Auto) 67.2 (43.0-75.0) % Lymph % (Auto) 25.7 (20.5-60.0) % [place] % (Auto) 5.8 (1.7-12.0) % Eos % (Auto) 0.7 L (0.9-7.0) % Baso % (Auto) 0.3 (0.2-2.0) % Neut # (Auto) 3.9 (1.4-6.5) 10^3/uL Lymph # (Auto) 1.5 (1.2-3.8) 10^3/uL [place] # (Auto) 0.3 (0.3-0.8) 10^3/uL Eos # (Auto) 0.0 (0.0-0.7) 10^3/uL Baso # (Auto) 0.0 (0.0-0.1) 10^3/uL Abs Immat Gran (auto) 0.02 (0.00-0.03) 10^3/uL Imm/Tot Granulo (auto) 0.3 (0.0-0.5) % Sodium 141 (136-145) mmol/L Potassium 3.8 (3.5-5.1) mmol/L Chloride 104 (98-107) mmol/L Carbon Dioxide 26.6 (21.0-32.0) mmol/L Anion Gap 14.2 BUN 15.0 (7.0-18.0) mg/dL Creatinine 1.10 (0.70-1.30) mg/dL Est GFR ( Amer) >60 (>=60 mL/min/1.73m^2) Est GFR (Non-Af Amer) >60 (>=60 mL/min/1.73m^2) BUN/Creatinine Ratio 13.6 Glucose 175 H (74-106) mg/dL Calcium 8.2 L (8.5-10.1) mg/dL Total Bilirubin 0.4 (0.2-1.0) mg/dL AST 10 L (15-37) U/L ALT 17 (16-63) U/L Alkaline Phosphatase 76 (46-116) U/L Total Protein 6.7 (6.4-8.2) g/dL Albumin 3.5 (3.4-5.0) g/dL Globulin 3.2 g/dL Albumin/Globulin Ratio 1.1 TSH 1.810 (0.358-3.740) uIU/mL Urine Color Lt. yellow (YELLOW) Urine Clarity Clear (CLEAR) Urine pH 6.5 (5.0-9.0) Ur Specific [place] <=1.005 A (1.005-1.025) Urine Protein Negative (NEG/TRACE) mg/dL Urine Glucose (UA) Negative (NEGATIVE) mg/dL Urine Ketones Negative (NEGATIVE) mg/dL Urine Occult Blood Negative (NEGATIVE) Urine Nitrite Negative (NEGATIVE) Urine Bilirubin Negative (NEGATIVE) Urine Urobilinogen 0.2 (0.2-1.0) EU/dL Ur Leukocyte Esterase Negative (NEGATIVE) Salicylates <2.8 (<=19.9) mg/dL Urine Opiates Screen Negative (NEGATIVE) Ur Buprenorphine Scrn Negative (NEGATIVE) Ur Oxycodone Screen Negative (NEGATIVE) Urine Methadone Screen Negative (NEGATIVE) Acetaminophen <2.0 L (10.0-30.0) ug/mL Ur Barbiturates Screen Negative (NEGATIVE) U Tricyclic Antidepress Negative (NEGATIVE) Ur Phencyclidine Scrn Negative (NEGATIVE) Ur Amphetamines Screen Negative (NEGATIVE) U Methamphetamines Scrn Negative (NEGATIVE) U Benzodiazepines Scrn Negative (NEGATIVE) Urine Cocaine Screen Negative (NEGATIVE) U Cannabinoids Screen Negative (NEGATIVE) Ethanol Quant <4 mg/dL SARS-CoV-2 Ag (CV2AG) Negative (NEGATIVE) Discharge Plan Discharge Chief Complaint: Psychiatric Symptoms Clinical Impression: Combative behavior, Dementia without behavioral disturbance Patient Disposition: [facility] Discharge Date/Time: 06/26/24 11:35
--- NOTE | 2024-06-25 22:47 | PC.NURSE ---
Recliner to room for to stay the night with pt. Pt to go to [facility] in the AM. Awaiting bed and transport information from [facility]. Pt and deny needs at this time.
[2024-06-26] MEDS: LORAZEPAM 2 MG/ML VIAL IM (05:34)
--- NOTE | 2024-06-26 05:45 | PC.NURSE ---
Pt is resting quietly at this time. No further attempts made to get OOB.
--- NOTE | 2024-06-26 05:52 | PC.NURSE ---
Up to BR with stand-by assist per his to urinate. Gait is steady.
[2024-06-26 08:45] VITALS: BP 130/80; PULSE 76; O2SAT 98
[2024-06-26 11:34] VITALS: BP 128/88; PULSE 88; O2SAT 98
== END 2024-06-26 11:35 ==
PROVIDERS: Physician Assistant; Emergency Provider Emergency Medicine; PCP Family Medicine
DX: F03.90 Unspecified dementia, unspecified severity, without behavioral disturbance, psychotic disturbance, mood disturbance, and anxiety (principal); F41.9 Anxiety disorder, unspecified; R45.1 Restlessness and agitation
CPT/HCPCS: 36415; 70450; 80053; 80179; 80307; 80320; 80329; 81003; 84443; 85025; 87811; 93005; 96372; 99284; 99285; J2060

== ENCOUNTER 2024-07-02 12:12 | Inpatient (IN) | payer OTHER, SELFPAY ==
[2024-07-02 12:35] VITALS: BP 122/66; PULSE 60; TEMP 36.4; O2SAT 100; BMI 26.9
--- OUTSIDE RECORDS SUMMARY | 2024-07-02 13:18 | XMS_ITS | CCD ---
Author Organization [facility] Providers Care Lehr Stripper Name Role Phone NAYA IZAGUIRRE Admitting Unavailable PAUL LOPEZ Primary Care Unavailable PAUL LOPEZ Referring Unavailable NAYA IZAGUIRRE Attending Unavailable ND Procedure Practitioner Unavailab NAYA Wolf Surgeon Unavailable PAUL LOPEZ Primary Care Unavailable SELF, REFERRED Referring Unavailable WILLAM IZAGUIRREIN Attending Unavailable ZINA JIASULTANAIN Admitting Unavailable ND Procedure Practitioner Unavailab WILLAM WolfIN Surgeon Unavailable Unavailable Primary Care Provider UnavailNARCISO [...] LORRI Referring Unavailable TEMO LORRI Attending Unavailable TEMO LORRI Attending Unavailable ELDER WEINSTEINEN Referring Unavailable ELDER WEINSTEINEN Attending Unavailable HOLLY PLASCENCIAIA Attending Unavailable Unavailable Primary Care Provider UnavailPaul Easton Primary Care Physician MD Danni Graham Attending Provider [phone] MD Paul Lopez Primary Care Provider Danni Graham Admitting Unavailable Danni Graham Attending Unavailable Paul Lopez Primary Care Unavailable Danni Graham. Attending Unavailable Paul Lopez Referring Unavailable Danni Graham Attending Unavailable Danni Graham Referring Unavailable Danni Graham Admitting Unavailable Danni Graham Attending Unavailable Danni Graham Attending Unavailable Danni Graham Admitting Unavailable Danni Graham Attending Unavailable Danni Graham Referring Unavailable MAITE MORRIS Attending Unavailable PAUL LOPEZ Primary Care Unavailable Allergies Allergy Classification Reported Allergen(s) Allergy Type Date of Onset Reaction(s) Facility (1 source) 54406,00 Drug allergy (disorder) 9 [facility] Repository (1 source) No Known Medication Allergies; Translations: [No Known Medication Allergies] Propensity to adverse reactions (disorder) [facility] Repository Medications Current Medications Medication Drug Class(es) [...] 5 mg oral tablet (20 sources) Start: 025 take 1 tablet by mouth once daily at bedtime donepezil 5 mg Tab 5 mg = 1 tab(s), Oral, Once a day (at bedtime), Refills(s) 0, Dementia Start Date: 06/21/24 Status: Ordered Start: 03-09-2024 take 1 tablet by january th once daily donepezil (ARICEPT) 5 mg tablet Indications: Alzheimer's disease (HCC) take 1 tablet by mouth every day 30 tablet 03/09/2024 Active Start: 08-11-2022 End: 03-09-2024 donepezil 5 mg Tab 5 mg = 1 tab(s), Refills(s) 0 Start Date: 01/11/24 Status: Ordered Comment on above: Take 1 tablet by january th once daily. TAKE 1 TABLET BY JANUARY TH EVERY DAY hydrocortisone 10 mg/ml / neomycin 3.5 mg/ml / polymyxin b 31326 unt/ml otic suspension (3 sources) Aminoglycoside Antibacterial, Polymyxin-class Antibacterial, Corticosteroid Start: 04-22-20 End: 04-27-20 22 neomycin-polymyxin- hydrocortisone (CORTISPORIN) 3.5-10,000-1 mg/mL-unit/mL-% otic suspension Indications: Acute otitis externa of left ear, unspecified type Use 4 Drops in the left ear three times daily for 5 days. 10 mL 0 04/22/2022 04/27/2022 Active Comment on above: Use 4 Drops in the l eft ear three times daily for 5 days. memantine hydrochloride 5 mg oral tablet (14 sources) X-flgwsx-Z-aspartate Receptor Antagonist Start: 11-18-19 23 take 1 tablet by mouth twice daily [...] Date Documented Da te Episodic/Chronic Acute bronchitis (4 sources) Acute bronchitis 01-04-2024 Episodic Asthma (4 sources) Asthma 01-04-2024 Chronic Delirium, dementia, and amnestic and other cognitive disorders (8 sources) Alzheimer's disease; Translations: [Alzheimer's disease, unspecified] Chronic Diabetes mellitus without complication (5 sources) Other abnormal glucose; Translations: [Prediabetes] Onset: 2 01-04-2024 Episodic Disorders of lipid metabolism (20 sources) Hyperlipidemia; Translations: [Hyperlipidemia, unspecified] 12-02-2022 Chronic Esophageal disorders (4 sources) Gastroesophageal reflux disease 01-04-2024 Chronic Noninfectious gastroenteritis (8 sources) Acute gastroenteritis; Translations: [Chronic diarrhea] 01-04-2024 Episodic Nutritional deficiencies (5 sources) Vitamin D deficiency, unspecified; Translations: [Vitamin [...] Chronic Other ear and sense organ disorders (4 sources) Hearing loss 01-04-2024 Chronic Other ear and sense organ disorders (2 sources) Impacted cerumen of bilateral ears; Translations: [Impacted cerumen, bilateral] Episodic Other ear and sense organ disorders (1 source) Acute otitis externa of left ear; Translations: [Unspecified acute noninfective otitis externa, left ear] Episodic Other ear and sense organ disorders (4 sources) Tinnitus 01-04-2024 Episodic Other gastrointestinal disorders (4 sources) Perforation of small intestine 01-04-2024 Episodic Other nervous system disorders (2 sources) Other symptoms and signs involving cognitive functions and awareness; Translations: [Other signs and symptoms involving cognition] Onset: 2 05-07-2022 Episodic Other non-traumatic joint disorders (4 sources) Joint pain 01-04-2024 Episodic Other upper respiratory disease (4 sources) Allergic rhinitis 01-04-2024 Chronic Other upper respiratory infections (4 sources) Acute sinusitis 01-04-2024 Episodic Residual codes; unclassified (5 sources) Sleep apnea; Translations: [Sleep apnea, unspecified] [...] Translations: [Other amnesia] Episodic Residual codes; unclassified (4 sources) Poor short-term memory 01-04-2024 Episodic Residual codes; unclassified (1 source) Hallucinations, unspecified; Translations: [Hallucinations, unspecified] Onset: 5 Episodic Unclassified (1 source) Medical Screening Onset: 5 Unclassified (1 source) ILL Onset: 5 Past or Other Problems Problem Classification Problem Date Documented Da te Episodic/Chronic Deficiency and other anemia (1 source) Anemia, unspecified; Translations: [ANEMIA UNSPECIFIED] Onset: 01-16-2022 Episodic Other ear and sense organ disorders (20 sources) Bilateral tinnitus; Translations: [Tinnitus, bilateral] Onset: 04-27-2022 04-27-2022 Episodic Other screening for suspected conditions (not mental disorders or infectious disease) (2 sources) Raised prostate specific antigen; Translations: [Elevated prostate specific antigen [PSA]] Onset: 01-11-2024 Episodic Residual codes; unclassified (5 sources) Other amnesia; Translations: [OTHER AMNESIA] Onset: 01-21-2022 Episodic Results Test Name Value Interpretation Reference Range Facility ACETAMINOPHENon 06-24-2024 Acetaminophen [Mass/Vol] 3.3 ug/mL Low 10.0-30.0 [facility] Comment on above: Result Comment: Refe rence ranges are for therapeutic limits. Performed By: #### C OWEN BUTLER, 5643-2, 3298-7, 4024-6, THYR #### [facility] ([id number]) [address] [place] [address] 39416 CBC AND AUTO DIFFon 06-24-19 25 ABSOLUTE BASOPHIL 0.1 X10E9/L Normal 0.0-0.2 [facility] Comment on above: Performed By: #### C OWEN BUTLER, 5643-2, 3298-7, 40246, THYR #### [facility] ([id number]) [address] [place] [address] 35863 ABSOLUTE NEUTROPHIL 3.1 X10E9/L Normal 1.5-6.6 [facility] Comment on above: Performed By: #### C OWEN BUTLER, 5643-2, 3298-7, 4024-6, THYR #### [facility] ([id number]) [address] [place] [address] 23942 Basophils/100 WBC (Bld) 1.0 % Normal [facility] Comment on above: Performed By: #### C CARRIE, CMP, 5643-2, 3298-7, 4024-6, THYR #### [facility] ([id number]) [address] [place] [address] 23690 Eosinophils (Bld) [#/Vol] 0.1 10*3/uL Normal 0.0-0.4 [facility] Comment on above: Performed By: #### C CARRIE, CMP, 5643-2, 3298-7, 4024-6, THYR #### [facility] ([id number]) [address] [place] [address] 23944 Eosinophils/100 WBC (Bld) 1.4 % Normal [facility] Comment on above: Performed By: #### C CARRIE [facility], 5643-2, 3298-7, 4024-6, THYR #### [facility] ([id number]) [address] [place] [address] 90626 Erythrocyte distribution width (RBC) [Ratio] 15.6 % High 11.5-15.0 [facility] Comment on above: Performed By: #### C CARRIE [facility], 43-2, 3298-7, 4024-6, THYR #### [facility] ([id number]) [address] [place] [address] 30729 Hematocrit (Bld) [Volume fraction] 42.7 % Normal 39-49 [facility] Comment on above: Performed By: #### C CARRIE [facility], 43-2, 3298-7, 4024-6, THYR #### [facility] ([id number]) [address] [place] [address] 30831 Hemoglobin (Bld) [Mass/Vol] 14.3 g/dL Normal 13.0-17.0 [facility] Comment on above: Performed By: #### C CARRIE, [facility], 5643-2, 3298-7, 4024-6, THYR #### [facility] ([id number]) [address] [place] [address] 29227 Lymphocytes (Bld) [#/Vol] 1.8 10*3/uL Normal 1.0-3.5 [facility] Comment on above: Performed By: #### C CARRIE, [facility], 5643-2, 3298-7, 4024-6, THYR #### [facility] ([id number]) [address] [place] [address] 08795 Lymphocytes/100 WBC (Bld) 33.3 % Normal [facility] Comment on above: Performed By: #### C OWEN BUTLER, 5643-2, 3298-7, 4024-6, THYR #### [facility] ([id number]) [address] [place] [address] 95311 MCH (RBC) [Entitic mass] 24.7 pg Low 27-34 [facility] Comment on above: Performed By: #### C OWEN BUTLER, 56-2, 3298-7, 4024-6, THYR #### [facility] ([id number]) [address] [place] [address] 49376 MCHC (RBC) [Mass/Vol] 33.4 g/dL Normal 32-36 [facility] Comment on above: Performed By: #### Emily BUTLER CMP, 43-2, 3298-7, 4024-6, THYR #### [facility] ([id number]) [address] [place] [address] 23458 MCV (RBC) [Entitic vol] 74 fL Low 80-100 [facility] Comment on above: Performed By: #### C OWEN BUTLER, 5643-2, 3298-7, 4024-6, THYR #### [facility] ([id number]) [address] [place] [address] 81381 Monocytes (Bld) [#/Vol] 0.4 10*3/uL Normal 0-0.9 [facility] Comment on above: Performed By: #### Emily BUTLER CMP, 5643-2, 3298-7, 4024-6, THYR #### [facility] ([id number]) [address] [place] [address] 99601 Monocytes/100 WBC (Bld) 6.9 % Normal [facility] Comment on above: Performed By: #### C BCA, CMP, 5643-2, 3298-7, 4024-6, THYR #### [facility] ([id number]) [address] [place] [address] 61751 Neutrophils/100 WBC (Bld) 57.4 % Normal [facility] Comment on above: Performed By: #### Emily BCA, CMP, 5643-2, 3298-7, 4024-6, THYR #### [facility] ([id number]) [address] [place] [address] 04218 Platelet mean volume (Bld) [Entitic vol] 7.8 fL Normal 7-12 [facility] Comment on above: Performed By: #### Emily BUTLER, CMP, 5643-2, 3298-7, 4024-6, THYR #### [facility] ([id number]) [address] [place] [address] 33503 Platelets (Bld) [#/Vol] 174 10*3/uL Normal 150-450 [facility] Comment on above: Performed By: #### Emily BUTLER, CMP, 5643-2, 3298-7, 4024-6, THYR #### [facility] ([id number]) [address] [place] [address] 90116 RBC COUNT 5.77 X10E12/L High 4.10-5.70 [facility] Comment on above: Performed By: #### Emily BCA, CMP, 5643-2, 3298-7, 4024-6, THYR #### [facility] ([id number]) [address] [place] [address] 62681 WBC (Bld) [#/Vol] 5.4 10*3/uL Normal 4.0-11.0 [facility] Comment on above: Performed By: #### Emily BCA, CMP, 5643-2, 3298-7, 4024-6, THYR #### [facility] ([id number]) [address] [place] [address] 00250 COMPREHENSIVE METABOLIC PANE Jatin 06-24-2024 Albumin [Mass/Vol] 4.0 g/dL Normal 3.2-5.3 [facility] Comment on above: Performed By: #### C BCA, CMP, 5643-2, 3298-7, 4024-6, THYR #### [facility] ([id number]) [address] [place] [address] 64004 ALP [Catalytic activity/Vol] 65 U/L Normal 39-130 [facility] Comment on above: Performed By: #### C BCA, CMP, 5643-2, 3298-7, 4024-6, THYR #### [facility] ([id number]) [address] [place] [address] 33397 ALT [Catalytic activity/Vol] 17 U/L Normal 0-40 [facility] Comment on above: Performed By: #### C BCA, CMP, 5643-2, 3298-7, 4024-6, THYR #### [facility] ([id number]) [address] [place] [address] 91460 Anion gap [Moles/Vol] 8 mmol/L Normal 5-15 [facility] Comment on above: Performed By: #### C BCA, CMP, 5643-2, 3298-7, 4024-6, THYR #### [facility] ([id number]) [address] [place] [address] 57854 AST [Catalytic activity/Vol] 17 U/L Normal 0-41 [facility] Comment on above: Performed By: #### C BCA, CMP, 5643-2, 3298-7, 4024-6, THYR #### [facility] ([id number]) [address] [place] [address] 74205 Bilirubin [Mass/Vol] 0.7 mg/dL Normal 0.3-1.2 [facility] Comment on above: Performed By: #### C BCA, CMP, 5643-2, 3298-7, 4024-6, THYR #### [facility] ([id number]) [address] [place] [address] 27772 Calcium [Mass/Vol] 8.9 mg/dL Normal 8.5-10.5 [facility] Comment on above: Performed By: #### C BCA, CMP, 5643-2, 3298-7, 4024-6, THYR #### [facility] ([id number]) [address] [place] [address] 67968 Chloride [Moles/Vol] 106 mmol/L Normal 98-109 [facility] Comment on above: Performed By: #### C BCA, CMP, 5643-2, 3298-7, 4024-6, THYR #### [facility] ([id number]) [address] [place] [address] 65674 CO2 [Moles/Vol] 24 mmol/L Normal 22-32 [facility] Comment on above: Performed By: #### C BCA, CMP, 5643-2, 3298-7, 4024-6, THYR #### [facility] ([id number]) [address] [place] [address] 00301 Creatinine [Mass/Vol] 0.88 mg/dL Normal 0.70-1.20 [facility] Comment on above: Result Comment: METH OD TRACEABLE TO IDMS STANDARD Performed By: #### C BCA, CMP, 5643-2, 3298-7, 4024-6, THYR #### [facility] ([id number]) [address] [place] [address] 79041 eGFR (CKD-EPI) NON-RACE DEPENDENT >90 Normal >59 [facility] Comment on above: Result Comment: Reported eGFR is based on the CKD-EPI 2020 equation that does not use a race coefficient. Performed By: #### C BCA, CMP, 5643-2, 3298-7, 4024-6, THYR #### [facility] ([id number]) [address] [place] [address] 72560 Glucose [Mass/Vol] 105 mg/dL High 65-99 [facility] Comment on above: Performed By: #### C BCA, CMP, 5643-2, 3298-7, 4024-6, THYR #### [facility] ([id number]) [address] [place] [address] 17724 Potassium [Moles/Vol] 3.9 mmol/L Normal 3.5-5.0 [facility] Comment on above: Performed By: #### C BCA, CMP, 5643-2, 3298-7, 4024-6, THYR #### [facility] ([id number]) [address] [place] [address] 50365 Protein [Mass/Vol] 6.9 g/dL Normal 6.0-8.0 [facility] Comment on above: Performed By: #### C BCA, CMP, 5643-2, 3298-7, 4024-6, THYR #### [facility] ([id number]) [address] [place] [address] 42532 Sodium [Moles/Vol] 138 mmol/L Normal 134-146 [facility] Comment on above: Performed By: #### C BCA, CMP, 5643-2, 3298-7, 4024-6, THYR #### [facility] ([id number]) [address] [place] [address] 91108 Urea nitrogen [Mass/Vol] 20 mg/dL Normal 5-23 [facility] Comment on above: Performed By: #### C BCA, CMP, 5643-2, 3298-7, 4024-6, THYR #### [facility] ([id number]) [address] [place] [address] 58581 DRUG SCREEN, URINEon 025 AMPHETAMINE/METHAMP Negative [facility]G [facility] Comment on above: Result Comment: AMPH /METH screening cut off = 1000 ng/mL Performed By: #### D FAGAN #### [facility] ([id number]) [address] [place] [address] 80665 BARBITURATES Negative Normal NEG [facility] Comment on above: Result Comment: Izabel iturates screening cut off value = 200 ng/mL Performed By: #### D FAGAN #### [facility] ([id number]) [address] [place] [address] 15980 BENZODIAZEPINES Negative Normal NEG [facility] Comment on above: Result Comment: Skyler odiazepines screening cut off value = 200 ng/mL Performed By: #### D FAGAN #### [facility] ([id number]) [address] [place] [address] 28469 CANNABINOIDS Negative Normal NEG [facility] Comment on above: Result Comment: Sabina abinoids/THC screening cut off value = 50 ng/mL Performed By: #### D FAGAN #### [facility] ([id number]) [address] [place] [address] 35270 COCAINE METABOLITE Negative Normal NEG [facility] Comment on above: Result Comment: Coca ine screening cut off value = 300 ng/mL Performed By: #### D FAGAN #### [facility] ([id number]) [address] [place] [address] [place] [address] ECSTASY Negative Normal NEG [facility] Comment on above: Result Comment: Ecst asy screening cut off value = 500 ng/mL This report is intended for use in clinical monitoring or management of patients. Performed By: #### D FAGAN #### [facility] ([id number]) [address] [place] [address] 63913 METHADONE Negative Normal NEG [facility] Comment on above: Result Comment: Meth adone screening cut off value = 300 ng/mL. Performed By: #### D FAGAN #### [facility] ([id number]) [address] [place] [address] 20258 OPIATES Negative Normal NEG [facility] Comment on above: Result Comment: Opia ann screening cut off value = 300 ng/mL NOTE: This test is used for the detection of codeine, hydrocodone (>1000 ng/mL), morphine and hydromorphone (>900 ng/mL) in urine. Performed By: #### D FAGAN #### [facility] ([id number]) [address] [place] [address] 49390 OXYCODONE Negative Normal NEG [facility] Comment on above: Result Comment: Oxyc odone screening cut off value = 300 ng/mL NOTE: This test is used for the detection of oxycodone and oxymorphone in urine. Performed By: #### D FAGAN #### [facility] ([id number]) [address] [place] [address] 25687 PHENCYCLIDINE Negative Normal NEG [facility] Comment on above: Result Comment: Phen cyclidine screening cut off value = 25 ng/mL Performed By: #### D FAGAN #### [facility] ([id number]) [address] [place] [address] 51486 ETHANOLon 06-24-2024 Ethanol [Mass/Vol] mg/dL Normal 0.00-0.08 [facility] Comment on above: Result Comment: This report is intended for use in clinical monitoring or management of patients. Performed By: #### C BCA, CMP, 5643-2, 3298-7, 4024-6, THYR #### [facility] ([id number]) [address] [place] [address] 64536 Salicylates [Mass/Vol]on SALICYLATE <4.0 Normal 2.0-25.0 [facility] Comment on above: Result Comment: Refe rence ranges are for therapeutic limits. Performed By: #### C CARRIE, OWEN, 5643-2, 3298-7, 4024-6, THYR #### [facility] ([id number]) [address] [place] [address] 91834 THYROID PROFILEon 06-24-2024 Free T4 [Mass/Vol] 0.92 ng/dL Normal 0.61-1.60 [facility] Comment on above: Performed By: #### C CARRIE, [facility], 5643-2, 3298-7, 4024-6, THYR #### [facility] ([id number]) [address] [place] [address] 98525 TSH 4.19 uIU/mL Normal 0.49-4.67 [facility] Comment on above: Performed By: #### C CARRIE, [facility], 43-2, 3298-7, 4024-6, THYR #### [facility] ([id number]) [address] [place] [address] [place] [address] URN MACROSCOPIC NURon 2024 BILIRUBIN IRMA Negative Normal NEG [facility] Comment on above: Performed By: #### N UM #### [facility] ([id number]) [address] [place] [address] [place] [address] BLOOD/HGB IRMA Negative Normal NEG [facility] Comment on above: Performed By: #### N UM #### [facility] ([id number]) [address] [place] [address] [place] [address] GLUCOSE IRMA Negative Normal NEG [facility] Comment on above: Performed By: #### N UM #### [facility] ([id number]) [address] [place] [address] [place] [address] KETONES IRMA Negative Normal NEG [facility] Comment on above: Performed By: #### N UM #### [facility] ([id number]) [address] [place] [address] [place] [address] LEUKOCYTE ESTERASE IRMA Negative Normal NEG [facility] Comment on above: Performed By: #### N UM #### [facility] ([id number]) [address] [place] [address] 70733 NITRITE IRMA Negative Normal NEG [facility] Comment on above: Performed By: #### N UM #### [facility] ([id number]) [address] [place] [address] 59839 PH IRMA 7.5 Normal 5.0-8.5 [facility] Comment on above: Performed By: #### N UM #### [facility] ([id number]) [address] [place] [address] 79352 PROTEIN IRMA Negative Normal NEG [facility] Comment on above: Performed By: #### N UM #### [facility] ([id number]) [address] [place] [address] 27113 SPECIFIC GRAVITY IRMA 1.015 Normal 1.003-1.035 [facility] Comment on above: Performed By: #### N UM #### [facility] ([id number]) [address] [place] [address] 26023 UROBILINOGEN IRMA 0.2 eu/dL Normal <1.1 [facility] Comment on above: Performed By: #### N UM #### [facility] ([id number]) [address] [place] [address] 72808 BMPon 06-21-2024 Anion gap [Moles/Vol] 11 mmol/L Normal 6-16 [facility] Comment on above: Performed By: #### 2 [id number] #### Charles [facility] [address] [place] [address] Calcium [Mass/Vol] 9.0 mg/dL Normal 8.9-11.1 [facility] Comment on above: Performed By: #### 2 [id number] #### Charles [facility] [address] [place] [address] Chloride [Moles/Vol] 102 mmol/L Normal 101-111 [facility] Comment on above: Performed By: #### 2 [id number] #### [facility] [address] [place] [address] CO2 [Moles/Vol] 30 mmol/L Normal 21-31 [facility] Comment on above: Performed By: #### 2 [id number] #### [facility] [address] [place] [address] Creatinine [Mass/Vol] 0.9 mg/dL Normal 0.5-1.3 [facility] Comment on above: Performed By: #### 2 [id number] #### [facility] [address] [place] [address] Glucose [Mass/Vol] 108 mg/dL Normal 55-199 [facility] Comment on above: Performed By: #### 2 [id number] #### [facility] [address] [place] [address] Potassium [Moles/Vol] 3.9 mmol/L Normal 3.5-5.3 [facility] Comment on above: Performed By: #### 2 [id number] #### [facility] [address] [place] [address] Sodium [Moles/Vol] 139 mmol/L Normal 135-145 [facility] Comment on above: Performed By: #### 2 [id number] #### [facility] [address] [place] [address] Urea nitrogen [Mass/Vol] 12 mg/dL Normal 5-21 [facility] Comment on above: Performed By: #### 2 [id number] #### [facility] [address] [place] [address] Urea nitrogen/Creatinine [Mass ratio] 13 No Units Normal 10-20 [facility] Comment on above: Performed By: #### 2 [id number] #### [facility] [address] [place] [address] CBC w/ Auto Diffon 01-02-202 5 Basophils/100 WBC (Bld) 0.6 % Normal 0.0-2.0 [facility] Comment on above: Performed By: #### 2 [id number] #### [facility] [address] [place] [address] Basophils/Leukocytes Auto (Bld) [Pure # fraction] 0.0 E9/L Normal 0.0-0.2 [facility] Comment on above: Performed By: #### 2 [id number] #### [facility] [address] [place] [address] Eosinophils (Bld) [#/Vol] 0.0 E9/L Normal 0.0-0.5 [facility] Comment on above: Performed By: #### 2 [id number] #### [facility] [address] [place] [address] Eosinophils/100 WBC (Bld) 0.6 % Normal 0.0-8.0 [facility] Comment on above: Performed By: #### 2 [id number] #### [facility] [address] [place] [address] Erythrocyte distribution width (RBC) [Ratio] 15.6 % High 10.9-14.2 [facility] Comment on above: Performed By: #### 2 [id number] #### [facility] [address] [place] [address] Hematocrit (Bld) [Volume fraction] 45.0 % Normal 37.7-49.0 [facility] Comment on above: Performed By: #### 2 [id number] #### [facility] [address] [place] [address] Hemoglobin (Bld) [Mass/Vol] 14.7 g/dL Normal 13.5-17.5 [facility] Comment on above: Performed By: #### 2 [id number] #### [facility] [address] [place] [address] Hypochromia Auto Ql (Bld) PRESENT Invalid Interpretation Code [facility] Comment on above: Performed By: #### 2 [id number] #### [facility] [address] [place] [address] Lymphocytes (Bld) [#/Vol] 1.1 E9/L Normal 1.0-4.0 [facility] Comment on above: Performed By: #### 2 [id number] #### [facility] [address] [place] [address] Lymphocytes/100 WBC (Bld) 23.5 % Normal 14.0-50.0 [facility] Comment on above: Performed By: #### 2 [id number] #### [facility] [address] [place] [address] MCH (RBC) [Entitic mass] 24.7 pg Low 27.0-34.0 [facility] Comment on above: Performed By: #### 2 [id number] #### [facility] [address] [place] [address] MCHC (RBC) [Mass/Vol] 32.7 g/dL Normal 31.4-36.0 [facility] Comment on above: Performed By: #### 2 [id number] #### [facility] [address] [place] [address] MCV (RBC) [Entitic vol] 75.5 fL Low 80.0-100.0 [facility] Comment on above: Performed By: #### 2 [id number] #### [facility] [address] [place] [address] Monocytes (Bld) [#/Vol] 0.2 E9/L Normal 0.2-1.0 [facility] Comment on above: Performed By: #### 2 [id number] #### [facility] [address] [place] [address] Neutrophils (Bld) [#/Vol] 3.3 E9/L Normal 2.0-7.5 [facility] Comment on above: Performed By: #### 2 [id number] #### [facility] [address] [place] [address] Neutrophils/100 WBC (Bld) 70.5 % Normal 36.0-75.0 [facility] Comment on above: Performed By: #### 2 [id number] #### [facility] [address] [place] [address] Platelet mean volume (Bld) [Entitic vol] 8.5 fL Normal 6.4-10.8 [facility] Comment on above: Performed By: #### 2 [id number] #### [facility] [address] [place] [address] Platelets (Bld) [#/Vol] 167.0 E9/L Normal 150.0-500.0 [facility] Comment on above: Performed By: #### 2 [id number] #### [facility] [address] [place] [address] RBC (Bld) [#/Vol] 6.0 E12/L High 4.3-5.9 [facility] Comment on above: Performed By: #### 2 [id number] #### [facility] [address] [place] [address] RBC size Nom (Bld) SEE MORPHOLOGY Invalid Interpretation Code [facility] Comment on above: Performed By: #### 2 [id number] #### [facility] [address] [place] [address] WBC corrected for nucl RBC Auto (Bld) [#/Vol] 4.6 E9/L Normal 4.0-11.0 [facility] Comment on above: Performed By: #### 2 [id number] #### [facility] [address] [place] [address] CHEMISTRYOrdered By: SYSTEM SYSTEM on 06-21-2024 Anion gap [Moles/Vol] 11 mmol/L Normal 6 - 16 mEq/L R emisol Chem Calcium [Mass/Vol] 9.0 mg/dL Normal 8.9 - 11. 1 mg/dL Remisol Chem Chloride [Moles/Vol] 102 mmol/L Normal 101 - 1 11 mmol/L Remisol Chem CO2 [Moles/Vol] 30 mmol/L Normal 21 - 31 mmol/L Remis ol Chem Creatinine [Mass/Vol] 0.9 mg/dL Normal 0.5 - 1.3 mg/dL Remisol Chem eGFR 98 mL/min/1.73 m2 Normal >=59mL/min /1.7 3 m2 Remisol Chem Glucose [Mass/Vol] 108 mg/dL Normal 55 - 199 mg/dL Re misol Chem Potassium [Moles/Vol] 3.9 mmol/L Normal 3.5 - 5.3 mmol/L Remisol Chem Sodium [Moles/Vol] 139 mmol/L Normal 135 - 145 mmol/L Remisol Chem Urea nitrogen [Mass/Vol] 12 mg/dL Normal 5 - 21 mg/dL Remisol Chem Urea nitrogen/Creatinine [Mass ratio] 13 mg/mg Normal 10 - 20 Rem[facility] Chem COAGULATIONOrdered By: Arleen Negrete on 06-21-2024 aPTT Coag (PPP) [Time] 30.4 s Normal 25.1 - 36.5 second(s) [facility] Auto Coag Comment on above: Interpretive Data: P arameter 15 days - 4 weeks 1 - 5 months 6 - 11 months 1 - 5 years 6 - 10 years 11 - 17 years PTT Mean: 35.4 (27.6-45.6) Mean: 33.5 (24.8-40.7) Mean: 32.4 (25.1-40.7) Mean: 31.6 (24.0-39.2) Mean: 31.6 (26.9-38.7) Mean: 31.0 (24.6-38.4) Pediatric Reference ranges were obtained from a study by Brayden Reyes et al. prepared from 1437 samples obtained at 7 different centers using the same coagulation reagent and instrumentation as [facility]. Currently there are no coagulation studies available worldwide for children to 14 days, and no normal ranges. Heparin therapeutic range (represented by Anti-Factor Xa activity of 0.2 - 0.4 U/mL) corresponds to PTT of 56.6 - 109.0 sec. INR Coag (PPP) [Relative time] 1.02 {INR} Invalid Interpretation Code [facility] Auto Coag Comment on above: Interpretive Data: I NR results are specifically intended to assess patients stabilized on long-term Anticoagulation therapy suggested INR s Less Intensive Anticoagulation 2.0 3.0 Conventional Range 3.0 4.5 PT Coag (PPP) [Time] 11.4 s Normal 9.4 - 1 2.5 second(s) [facility] Auto Coag Comment on above: Interpretive Data: 1 5 days - 4 weeks 1 - 5 months 6 -11 months 1 5 years 6 10 years 11 -17 years Mean: 11.2 (9.5 12.6) Mean: 11.0 (9.7 12.8) Mean: 11.0 (9.8 13.0) Mean: 11.3 (9.9 13.4) Mean: 11.7 (10.0 14.6) Mean: 11.8 (10.0 - 14.1) Pediatric Reference ranges were obtained from a study by jerry Rosenthal al. prepared from 1437 samples obtained at 7 different centers using the same coagulation reagent and instrumentation as [facility]. Currently there are no coagulation studies available worldwide for children to 14 days, and no normal ranges. HEMATOLOGYOrdered By: SYSTEM SYSTEM on 06-21-2024 Basophils/100 WBC (Bld) 0.6 % Normal 0.0 - 2.0 % Remisol Heme Basophils/Leukocytes Auto (Bld) [Pure # fraction] 0.0 E9/L Normal 0.0 - 0.2 E9/L [facility]e Eosinophils (Bld) [#/Vol] 0.0 E9/L Normal 0.0 - 0.5 E9/L [facility] Eosinophils/100 WBC (Bld) 0.6 % Normal 0.0 - 8.0 % [facility] Erythrocyte distribution width (RBC) [Ratio] 15.6 % High 10.9 - 14.2 % [facility] Hematocrit (Bld) [Volume fraction] 45.0 % Normal 37.7 - 49.0 % [facility] Hemoglobin (Bld) [Mass/Vol] 14.7 g/dL Normal 13.5 - 17.5 gm/dL [facility] Hypochromia Auto Ql (Bld) PRESENT *NA* (06/21/24 10:50 AM) Invalid Interpretation Code [facility] Lymphocytes (Bld) [#/Vol] 1.1 E9/L Normal 1.0 - 4.0 E9/L [facility] Lymphocytes/100 WBC (Bld) 23.5 % Normal 14.0 - 50.0 % [facility] MCH (RBC) [Entitic mass] 24.7 pg Low 27.0 - 34.0 pg Rem[facility]e MCHC (RBC) [Mass/Vol] 32.7 g/dL Normal 31.4 - 36.0 gm/dL [facility] MCV (RBC) [Entitic vol] 75.5 fL Low 80.0 - 100.0 fL [facility] Monocytes (Bld) [#/Vol] 0.2 E9/L Normal 0.2 - 1.0 E9/L [facility] Monocytes/100 WBC (Bld) 4.8 % Normal 4.0 - 14.0 % [facility] Neutrophils (Bld) [#/Vol] 3.3 E9/L Normal 2.0 - 7.5 E9/L [facility] Neutrophils/100 WBC (Bld) 70.5 % Normal 36.0 - 75.0 % [facility] Platelet mean volume (Bld) [Entitic vol] 8.5 fL Normal 6.4 - 10.8 fL [facility] Platelets (Bld) [#/Vol] 167.0 E9/L Normal 150.0 - 500.0 E9/L [facility] RBC (Bld) [#/Vol] 6.0 E12/L High 4.3 - 5.9 E12/L [facility] RBC size Nom (Bld) SEE MORPHOLOGY *NA* (06/21/24 10:50 AM) Invalid Interpretation Code Rem[facility]e WBC corrected for nucl RBC Auto (Bld) [#/Vol] 4.6 E9/L Normal 4.0 - 11.0 E9/L [facility] PT & PTTon 06-21-2024 aPTT Coag (PPP) [Time] 30.4 second(s) Normal 25.1-36.5 [facility] Comment on above: Result Comment: Para meter 15 days - 4 weeks 1 - 5 months 6 - 11 months 1 - 5 years 6 - 10 years 11 - 17 years PTT Mean: 35.4 (27.6-45.6) Mean: 33.5 (24.8-40.7) Mean: 32.4 (25.1-40.7) Mean: 31.6 (24.0-39.2) Mean: 31.6 (26.9-38.7) Mean: 31.0 (24.6-38.4) Pediatric Reference ranges were obtained from a study by Brayden Alma, et al. prepared from 1437 samples obtained at 7 different centers using the same coagulation reagent and instrumentation as [facility]. Currently there are no coagulation studies available worldwide for children to 14 days, and no normal ranges. Heparin therapeutic range (represented by Anti-Factor Xa activity of 0.2 - 0.4 U/mL) corresponds to PTT of 56.6 - 109.0 sec. Performed By: #### 1 [id number] #### [facility] [address] [place] [address] INR Coag (PPP) [Relative time] 1.02 {INR} Invalid Interpretation Code [facility] Comment on above: Result Comment: INR results are specifically intended to assess patients stabilized on long-term Anticoagulation therapy suggested INR???s ???Less Intensive Anticoagulation??? 2.0 ??? 3.0 Conventional Range 3.0 ??? 4.5 Performed By: #### 1 [id number] #### [facility] [address] [place] [address] PT Coag (PPP) [Time] 11.4 second(s) Normal 9.4-12.5 [facility] Comment on above: Result Comment: 15 d ays - 4 weeks 1 - 5 months 6 -11 months 1 ??? 5 years 6 ??? 10 years 11 -17 years Mean: 11.2 (9.5 ??? 12.6) Mean: 11.0 (9.7 ??? 12.8) Mean: 11.0 (9.8 ??? 13.0) Mean: 11.3 (9.9 ??? 13.4) Mean: 11.7 (10.0 ??? 14.6) Mean: 11.8 (10.0 - 14.1) Pediatric Reference ranges were obtained from a study by jerry Rosenthal al. prepared from 1437 samples obtained at 7 different centers using the same coagulation reagent and instrumentation as [facility]. Currently there are no coagulation studies available worldwide for children to 14 days, and no normal ranges. Performed By: #### 1 [id number] #### [facility] [address] [place] [address] UA with Cult Rflxon 06-21-19 25 Bilirubin Ql (U) Negative Normal Negative [facility] Comment on above: Performed By: #### 4 [id number] #### [facility] [address] [place] [address] Clarity (U) Clear Normal Clear [facility] Comment on above: Performed By: #### 4 [id number] #### [facility] [address] [place] [address] Color (U) Colorless Abnormal Yellow [facility] Comment on above: Result Comment: Micr oscopic readings are only performed on those samples that meet specific criteria set forth by [facility]. Performed By: #### 4 [id number] #### [facility] [address] [place] [address] Glucose Ql (U) Negative Normal Negative [facility] Comment on above: Performed By: #### 4 [id number] #### [facility] [address] [place] [address] Hemoglobin Auto test strip (U) [Mass/Vol] Negative Normal Negative [facility] Comment on above: Performed By: #### 4 [id number] #### [facility] [address] [place] [address] Ketones Auto test strip Ql (U) Negative Normal Negative [facility] Comment on above: Performed By: #### 4 [id number] #### [facility] [address] [place] [address] Leukocyte esterase Auto test strip Ql (U) Negative Normal Negative [facility] Comment on above: Performed By: #### 4 [id number] #### [facility] [address] [place] [address] Nitrite Auto test strip Ql (U) Negative Normal Negative [facility] Comment on above: Performed By: #### 4 [id number] #### [facility] [address] [place] [address] pH (U) 7.0 [pH] Invalid Interpretation Code 5.0-9.0 [facility] Comment on above: Performed By: #### 4 [id number] #### [facility] [address] [place] [address] Protein Ql (U) Negative Normal Negative [facility] Comment on above: Performed By: #### 4 [id number] #### [facility] [address] [place] [address] Specific gravity (U) [Rel density] 1.005 Invalid Interpretation Code 1.005-1.030 [facility] Comment on above: Performed By: #### 4 [id number] #### [facility] [address] [place] [address] Urobilinogen (U) [Mass/Vol] Negative Normal Negative [facility] Comment on above: Performed By: #### 4 [id number] #### [facility] [address] [place] [address] Type of Urine collection method Clean Catch Normal [facility] Comment on above: Performed By: #### 4 [id number] #### [facility] [address] [place] [address] URINALYSISOrdered By: SYSTEM SYSTEM on 06-21-2024 Bilirubin Ql (U) Negative Normal Negativemg/dL [facility] UA Auto SS Clarity (U) Clear (06/21/24 11:04 AM) Normal Clear [facility] UA Auto SS Color (U) Colorless 1 *ABN* (06/21/24 11:04 AM) Invalid Interpretation Code Yellow [facility] UA Auto SS Comment on above: Interpretive Data: M icroscopic readings are only performed on those samples that meet specific criteria set forth by [facility]. Glucose Ql (U) Negative Normal Negativemg/dL [facility] UA Auto SS Hemoglobin Auto test strip (U) [Mass/Vol] Negative Normal Negativemg/dL [facility] UA Aut o SS Ketones Auto test strip Ql (U) Negative Normal Negativemg/dL [facility] UA Auto SS Leukocyte esterase Auto test strip Ql (U) Negative Normal NegativeLeu/uL [facility] UA A uto SS Nitrite Auto test strip Ql (U) Negative Normal Negativemg/dL [facility] UA Auto SS pH (U) 7.0 *NA* (06/21/24 11:04 AM) Invalid Interpretation Code 5.0 - 9.0 [facility] UA Auto SS Protein Ql (U) Negative Normal Negativemg/dL [facility] UA Auto SS Specific gravity (U) [Rel density] 1.005 *NA* (06/21/24 11:04 AM) Invalid Interpretation Code 1.005 - 1.030 [facility] UA Auto SS Urobilinogen (U) [Mass/Vol] Negative Normal Negativemg/dL [facility] UA Auto SS URINALYSISOrdered By: Peter Larios on 06-21-2024 UA Spec Desc Clean Catch (06/21/24 11:04 AM) Normal [facility] UA Auto SS XR Chest 2 Viewson XR Chest 2 Views Exam Date/Time: 06/21/2024 11:00 EST Reason for Exam: P.A.T. Report IMPRESSION: NO EVIDENCE OF ACTIVE CHEST DISEASE. CLINICAL HISTORY: P.A.T.. COMMENT: The heart is normal in size. The mediastinum is unremarkable. The lungs appear clear. No infiltration nor pleural effusion is evident. Ordering Provider: Lex Draper FINAL REPORT Dictated: 06/21/2024 11:44 am Dariusz Moran M.D. Signed (Electronic Signature): 06/21/2024 11:44 am Signed by: Dariusz Moran M.D. Transcribed by: MOLLY Technologist: ASHLEIGH Technical Comments Radiation Dose: Ka,r in mGy = na DAP = na Normal [facility] eGFRon 06-21-2024 eGFR 98 mL/min/1.73 m2 Normal >=59 [facility] Comment on above: Performed By: #### 1 [id number] #### [facility] [address] [place] [address] Provider Letteron 04-18-2024 Provider Letter Provider Letter April 18, 2024 NOÉ JEFFERY [address] [place] [phone] : 1965 Dear, I am corresponding with [...] the practice. Office Sincerely, Dr. Danni Graham [facility] [address] [facility] [address] [place] [id number] Normal [facility] ISTAT XRay CREon 03-15-2024 ISTAT GFR > 60.0 Normal [facility] Comment on above: Result Comment: PERF ORMED BY: [place] [address] PATHOLOGIST EAR SPECIALIST NALDO SALDIVAR M.D. Performed By: #### I [facility] #### [address] MR prostate wo/w conon 03-15 MR prostate wo/w con [facility] Main [place] [address] [place] [address] MRI Report Signed Patient: Noé Jeffery MR#: [id number] : 1965 Acct:[id number] Age/Sex: 58 / M ADM Date: 03/15/24 Loc: Room: Type: [facility] Attending Dr: Danni Graham MD Copies to: [...] image 19 and series 600 image 19. Central/Transitiona l Zone: BPH changes. Seminal Vesicles: Unremarkable Neurovascular [...] Anne Jr., D.OChong03/15/2024 3:05 PM Dictation Location: [place] [address] Transcribed By: [facility] 03/15/24 1505 Dictated By: Esdras Anne Jr, DO 03/15/24 1501 Signed By: 03/15/24 1505 Normal [facility] No Panel InformationOrdered By: Danni Graham on 03-15-2024 Bedside Estimated GFR (eGFR) > 60.0 [facility] Whole blood creatinine measu rementOrdered By: Danni Graham on 03-15-2024 Creatinine [Mass/Vol] 1.0 mg/dL Normal 0.6-1.3 [facility] Comment on above: ER/ESD physician is notified/shown all ISTAT results.Critical values may be confirmed by laboratory testing ifdeemed necessary by ER attending doctor. Result Comment: ER/E SD physician is notified/shown all ISTAT results. Critical values may be confirmed by laboratory testing if deemed necessary by ER attending doctor. Performed By: #### I SCRE #### [facility] [address] [place] [address] Marjorie 03-07-2023 EFRAINN Telephone ([facility]) ---- NOÉ JEFFERY ([id number]) 1965 M Date Time Provider Department 03/07/23 CHASIDY STOVALLLARISA During your visit today, we recorded the following information about you: Chasidy Stovall, Research Coordinator 03/07/2023 1:44 PM Signed A voicemail was left about participation in [facility] research study. Chasidy Stovall, Research Coordinator 03/14/2023 1:46 PM Addendum Another voicemail was left in regards to potential participation. Allergies As of Date: 03/07/2023 (No Known Allergies) Date Reviewed: 10/12/2022 Reviewed by: Miguelito Chicas APRN.SLEEVE MACHINE TENDER - Fully Assessed Reason for Visit: Research [293] Cmt: [facility] (IRB [id number]) Primary Visit Diagnosis:Research study patient [Z00.6] Prescriptions as of 03/14/2023 - donepezil (ARICEPT) 5 mg tablet TAKE 1 TABLET BY MOUTH EVERY DAY - CPAP/BIPAP/OTHER Type .CPAPSettings into a note to see current settings/supplies/D ME information. - memantine (NAMENDA) 5 mg tablet Take 1 tablet by mouth twice daily. - CPAP/BIPAP/OTHER Type .CPAPSettings into a note to see current settings/supplies/D ME information. - aspirin, enteric coated (ASPIRIN, ENTERIC [...] Encounter Status:Closed by CHASIDY STOVALL on 03/07/23 [facility] Marjorie 02-08-[address] [facility] Telephone ([facility]) ---- NOÉ JEFFERY ([id number]) 1965 M Date Time Provider Department 02/08/23 CHASIDY STOVALL During your visit today, we recorded the following information about you: Chasidy Stovall, Research Coordinator 02/08/2023 1:26 PM Signed A call was made to of patient to talk about interest in participating in [facility]. expressed interest in participating. The [facility] consent document was sent through email. A call will be made in a week to discuss enrollment. Allergies As of Date: 02/08/2023 (No Known Allergies) Date Reviewed: 10/12/2022 Reviewed by: Miguelito Chicas APRN.SLEEVE MACHINE TENDER - Fully Assessed Reason for Visit: Research [293] Cmt: [facility] (IRB [id number]) Interest Primary Visit Diagnosis:Research study patient [Z00.6] Prescriptions as of 02/08/2023 - donepezil (ARICEPT) 5 mg tablet TAKE 1 TABLET BY MOUTH EVERY DAY - CPAP/BIPAP/OTHER Type .CPAPSettings into a note to see current settings/supplies/D ME information. - memantine (NAMENDA) 5 mg tablet Take 1 tablet by mouth twice daily. - CPAP/BIPAP/OTHER Type .CPAPSettings into a note to see current settings/supplies/D ME information. - aspirin, enteric coated (ASPIRIN, ENTERIC [...] Encounter Status:Closed by CHASIDY STOVALL on 02/08/23 [facility] ---- NOÉ JEFFERY ([id number]) 1965 M Date Time Provider Department 02/04/23 SANDIE WEINSTEIN [facility] During your visit today, we recorded the following information about you: Domingo Fried 02/04/2023 8:38 AM Signed Allergies As of Date: 02/04/2023 (No Known Allergies) Date Reviewed: 10/12/2022 Reviewed by: Miguelito Chicas APRN.SLEEVE MACHINE TENDER - Fully Assessed Reason for Visit: PAP Therapy Follow Up [1285] Cmt: 12/18/22 - 01/16/23 LAST FOUND DL FROM DME Prescriptions as of 02/04/2023 - donepezil (ARICEPT) 5 mg tablet TAKE 1 TABLET BY MOUTH EVERY DAY - CPAP/BIPAP/OTHER Type .CPAPSettings into a note to see current settings/supplies/D ME information. - memantine (NAMENDA) 5 mg tablet Take 1 tablet by mouth twice daily. - CPAP/BIPAP/OTHER Type .CPAPSettings into a note to see current settings/supplies/D ME information. - aspirin, enteric coated (ASPIRIN, ENTERIC [...] Encounter Status:Closed by DOMINGO FRIED on 02/04/23 [facility] Marjorie [facility]-20[facility] ---- NOÉ JEFFERY ([id number]) 1965 M Date Time Provider Department 01/13/23 MIQUEL DIAMOND [facility] During your visit today, we recorded [...] Date Reviewed: 10/12/2022 Reviewed by: Miguelito Chicas APRN.CNP - Fully Assessed Reason for Visit: Returning Patient's Call [408] Prescriptions as of 01/14/2023 - CPAP/BIPAP/OTHER Type .CPAPSettings into a note to see current settings/supplies/D ME information. - memantine (NAMENDA) 5 mg tablet Take 1 tablet by mouth twice daily. - donepezil (ARICEPT) 5 mg tablet Take 1 tablet by mouth once daily. - CPAP/BIPAP/OTHER Type .CPAPSettings into a note to see current settings/supplies/D ME information. - aspirin, enteric coated (ASPIRIN, ENTERIC [...] Encounter Status:Closed by [facility] ---- NOÉ JEFFERY ([id number]) 1965 M Date Time Provider Department 12/03/22 SANDIE WEINSTEIN [facility] During your visit today, we recorded the following information about you: Domingo Fried 12/03/2022 11:39 AM Signed Faxed order, office notes, demographics, and sleep study to: DME name: [facility] DME fax: [phone] DME ph: Allergies As of Date: 12/03/2022 (No Known Allergies) Date Reviewed: 10/12/2022 Reviewed by: Miguelito Chicas APRN.SLEEVE MACHINE TENDER - Fully Assessed Reason for Visit: PAP Rx Faxed [[phone]] Cmt: DME: [facility] Prescriptions as of 12/03/2022 - CPAP/BIPAP/OTHER Type .CPAPSettings into a note to see current settings/supplies/D ME information. - memantine (NAMENDA) 5 mg tablet Take 1 tablet by mouth twice daily. - donepezil (ARICEPT) 5 mg tablet Take 1 tablet by mouth once daily. - CPAP/BIPAP/OTHER Type .CPAPSettings into a note to see current settings/supplies/D ME information. - aspirin, enteric coated (ASPIRIN, ENTERIC [...] Encounter Status:Closed by DOMINGO FRIED on 12/03/22 [facility] Marjorie 11-08-2022 CNPN Telephone (NRSLAM) ---- NOÉ JEFFERY ([id number]) 1965 M Date Time Provider Department 11/08/22 SANDIE WEINSTEIN NRSJEREMY During your visit today, we recorded the following information about you: Petrona Guzman LPN 11/08/2022 11:52 AM Signed Message was sent to [facility] requesting a 30 day compliance rpt to be sent to our [place] office for Pt's upcoming appt. Will await for rpts to be sent. Petrona Guzman LPN 11/09/2022 8:40 AM Signed Rpt was received and was scanned in Pts chart. Allergies As of Date: 11/08/2022 (No Known Allergies) Date Reviewed: 10/12/2022 Reviewed by: Miguelito Chicas APRN.SLEEVE MACHINE TENDER - Fully Assessed Reason for Visit: Download Request [Other] Prescriptions as of 11/09/2022 - donepezil (ARICEPT) 5 mg tablet Take 1 tablet by mouth once daily. - CPAP/BIPAP/OTHER Type .CPAPSettings into a note to see current settings/supplies/D ME information. - aspirin, enteric coated (ASPIRIN, ENTERIC [...] Encounter Status:Closed by PETRONA GUZMAN on 11/08/22 [facility] RITO by IFAon 10-25-2022 Antinuclear Antibodies, IFA Negative Normal [facility] Comment on above: Result Comment: Nega tive <1:80 Borderline 1:80 Positive >1:80 ICAP nomenclature: AC-0 For more information about Hep-2 cell patterns use ANApatterns.org, the official website for the International Consensus on Antinuclear Antibody (RITO) Patterns (ICAP). Performed By: #### T 7, TSH, CMP, LISANDRA, LIPA, LIPID #### [facility] [address] [place] [address] Dr. Janell Marquez ANTISTREPTOLYSIN O AB (ASO)o n 10-22-2022 Antistreptolysin O Ab 45.9 IU/mL Normal 0.0-200.0 [facility] Comment on above: Performed By: #### A SOAB #### [facility] [address] [place] [address] Dr. Janell Marquez RHEUMATOID FACTORon 10-23-19 RA Latex Turbid. <10.0 Normal <14.0 [facility] Comment on above: Performed By: #### R F #### [facility] [address] [place] [address] Dr. Janell Marquez CBC AUTO DIFFon 10-21-2022 BASO # 0.0 103/ul Normal 0.0-0.1 [facility] Comment on above: Performed By: #### T 7, TSH, CMP, LISANDRA, LIPA, LIPID #### [facility] [address] [place] [address] Dr. Janell Marquez Basophils/100 WBC (Bld) 0.4 % Normal 0.2-2.0 [facility] Comment on above: Performed By: #### T 7, TSH, CMP, LISANDRA, LIPA, LIPID #### [facility] [address] [place] [address] Dr. Janell Marquez EO # 0.0 103/ul Normal 0.0-0.7 [facility] Comment on above: Performed By: #### T 7, TSH, CMP, LISANDRA, LIPA, LIPID #### [facility] [address] [place] [address] Dr. Janell Marquez Eosinophils/100 WBC (Bld) 0.7 % Critically low 0.9-7.0 [facility] Comment on above: Performed By: #### T 7, TSH, CMP, LISANDRA, LIPA, LIPID #### [facility] [address] [place] [address] Dr. Janell Marquez Erythrocyte distribution width (RBC) [Ratio] 16.1 % Critically high 11.0-15.0 [facility] Comment on above: Performed By: #### T 7, TSH, CMP, LISANDRA, LIPA, LIPID #### [facility] [address] [place] [address] Dr. Janell Marquez Hematocrit (Bld) [Volume fraction] 48.8 % Normal 42.0-54.0 [facility] Comment on above: Performed By: #### T 7, TSH, CMP, LISANDRA, LIPA, LIPID #### [facility] [address] [place] [address] Dr. Janell Marquez Hemoglobin (Bld) [Mass/Vol] 15.3 g/dL Normal 14.0-18.0 [facility] Comment on above: Performed By: #### T 7, TSH, CMP, LISANDRA, LIPA, LIPID #### [facility] [address] [place] [address] Dr. Janell Marquez IG # 0.02 10e3/ul Normal 0.00-0.03 [facility] Comment on above: Performed By: #### T 7, TSH, CMP, LISANDRA, LIPA, LIPID #### [facility] [address] [place] [address] Dr. Janell Marquez IG % 0.4 % Normal 0.0-0.5 [facility] Comment on above: Performed By: #### T 7, TSH, CMP, LISANDRA, LIPA, LIPID #### [facility] [address] [place] [address] Dr. Janell Marquez LYMPH # 1.3 103/ul Normal 1.2-3.8 [facility] Comment on above: Performed By: #### T 7, TSH, CMP, LISANDRA, LIPA, LIPID #### [facility] [address] [place] [address] Dr. Janell Marquez Lymphocytes/100 WBC (Bld) 29.0 % Normal 20.5-60.0 [facility] Comment on above: Performed By: #### T 7, TSH, CMP, LISANDRA, LIPA, LIPID #### [facility] [address] [place] [address] Dr. Janell Marquez MANUAL DIFF REQ NO Normal [facility] Comment on above: Performed By: #### T 7, TSH, CMP, LISANDRA, LIPA, LIPID #### [facility] [address] [place] [address] Dr. Janell Marquez MCH (RBC) [Entitic mass] 23.5 pg Critically low 25.9-34.0 [facility] Comment on above: Performed By: #### T 7, TSH, CMP, LISANDRA, LIPA, LIPID #### [facility] [address] [place] [address] Dr. Janell Marquez MCHC (RBC) [Mass/Vol] 31.4 g/dL Normal 29.9-35.2 [facility] Comment on above: Performed By: #### T 7, TSH, CMP, LISANDRA, LIPA, LIPID #### [facility] [address] [place] [address] Dr. Janell Marquez MCV (RBC) [Entitic vol] 74.8 fL Critically low 80.0-94.0 [facility] Comment on above: Performed By: #### T 7, TSH, CMP, LISANDRA, LIPA, LIPID #### [facility] [address] [place] [address] Dr. Janell Marquez MONO # 0.3 103/ul Normal 0.3-0.8 [facility] Comment on above: Performed By: #### T 7, TSH, CMP, LISANDRA, LIPA, LIPID #### [facility] [address] [place] [address] Dr. Janell Marquez Monocytes/100 WBC (Bld) 7.4 % Normal 1.7-12.0 [facility] Comment on above: Performed By: #### T 7, TSH, CMP, LISANDRA, LIPA, LIPID #### [facility] [address] [address] [address] Janell Marquez NEUT # 2.9 103/ul Normal 1.4-6.5 [facility] Comment on above: Performed By: #### T 7, TSH, CMP, LISANDRA, LIPA, LIPID #### [facility] [address] [address] [address] Janell Marquez Neutrophils/100 WBC (Bld) 62.1 % Normal 43.0-75.0 [facility] Comment on above: Performed By: #### T 7, TSH, CMP, LISANDRA, LIPA, LIPID #### [facility] [address] [address] [address] Janell Marquez Platelet mean volume (Bld) [Entitic vol] 9.3 fL Critically low 9.5-13.5 [facility] Comment on above: Performed By: #### T 7, TSH, CMP, LISANDRA, LIPA, LIPID #### [facility] [address] [address] [address] Janell Marquez PLT 203 103/ul Normal 150-450 [facility] Comment on above: Performed By: #### T 7, TSH, CMP, LISANDRA, LIPA, LIPID #### [facility] [address] [place] [address] Dr. Janell Marquez RBC 6.52 106/ul Critically high 4.70-6.10 [facility] Comment on above: Performed By: #### T 7, TSH, CMP, LISANDRA, LIPA, LIPID #### [facility] [address] [address] [address] Janell Marquez WBC 4.6 103/ul Normal 4.0-11.0 [facility] Comment on above: Performed By: #### T 7, TSH, CMP, LISANDRA, LIPA, LIPID #### [facility] [address] [place] [address] Dr. Janell Marquez CRPon 10-21-2022 CRP [Mass/Vol] mg/L Normal <=1.0 [facility] Comment on above: Performed By: #### T 7, TSH, CMP, LISANDRA, LIPA, LIPID #### [facility] [address] [place], [place] [address] Dr. Janell Marquez SED RATE WESTERGRENon 2022 SED RATE 30 mm/hr Critically high <=20 [facility] Comment on above: Performed By: #### T 7, TSH, CMP, LISANDRA, LIPA, LIPID #### [facility] [address] [address] [address] Janell Marquez URIC ACID SERUMon 10-21-2022 Urate [Mass/Vol] 4.3 mg/dL Normal 3.5-7.2 [facility] Comment on above: Performed By: #### T 7, TSH, CMP, LISANDRA, LIPA, LIPID #### [facility] [address] [address] [address] Janell Marquez ADMARK PHOSPHO-TAU TOTAL-TAU /AB42 CSFon 10-12-2022 COMMENT SEE NOTE Normal [facility] Comment on above: Order Comment: Speci men Type: CEREBROSPINAL FLUIDOrdering Facility: [facility] Address: [address] [place] [phone] Result Comment: Comm ents: This analysis detected levels of CSF A-beta 42 peptide (A-beta 42) and total tau (T-tau) proteins, reflected in a reduced A-beta 42 to T-tau Index (ATI). The level of phospho-tau (P-tau) was also elevated. These results are consistent with a diagnosis of Alzheimer's disease (AD). Recommendations: Health care providers, please contact the [facility] Client Services Department at if you wish to speak with a clinical oracle adf consultant regarding this test result. Background information: [...] respectively (6). Performed By: #### P HOTAU ####ATHENACLIA [id number] [place] [address] INTERPRETATION SEE NOTE Normal [facility] Comment on above: Order Comment: Speci men Type: CEREBROSPINAL FLUIDOrdering Facility: [facility] Address: [address] [place] [address] Result Comment: This test detected a reduced A-beta 42 to T-tau Index (ATI) and elevated levels of P-tau protein in the cerebrospinal fluid (CSF). Performed By: #### P HOTAU ####ATHENACLIA [id number] [place] [address] METHOD SEE NOTE Normal [facility] Comment on above: Order Comment: Speci men Type: CEREBROSPINAL FLUIDOrdering Facility: [facility] Address: [address] [place] [address] Result Comment: Dete ction of proteins was performed by Enzyme Linked Immunosorbent Assay (CARLITO) methodology. Limitations of analysis: Although rare, false positive or false negative results may occur. All results should be interpreted in the context of clinical findings, relevant history, and other laboratory data. Performed By: #### Mckenzie HAUSER ####ATHENACLKRISTINA [id number] [place] [address] REFERENCES SEE NOTE Normal [facility] Comment on above: Order Comment: Speci men Type: CEREBROSPINAL FLUIDOrdering Facility: [facility] Address: [address] [place], [place] [id number] Result Comment: 1. Hemanth Williamson et al. (2014) Front Aging Neurosci 6: 47. (PMID: 57100062) 2. Rian T. (2008) Maria R Med 10:231-9 (PMID:58398426) 3. Braak, H, et al. (1991) Acta Neuropathol 82: 239-59. (PMID: 2081959) 4. Ousmane Pedraza et al. (1999) Neurology 52: 1555-62. (PMID: 08543589) 5. Bill Long. (2004) NeuroRx 1: 213-25. (PMID: 94739036) 6. Bill Long et al. (2015) Alzheimers Binh 11: 58-69. (PMID: 37297036) This test was developed and its analytical performance characteristics have been determined by [facility]. It has not been cleared or approved by the U.S. Food and Drug Administration. This assay has been validated pursuant to the CLIA regulations and is used for clinical purposes. Laboratory oversight provided by Delvin Figueredo M.D., Ph.D., CLIA license [place], [facility] (CLIA# [id number]) Testing performed at: [facility] [address] [place] [address] Performed By: #### Mckenzie HAUSER ####ATHENARUBEN [id number] [address] [address] TECHNICAL RESULTS SEE NOTE Normal [facility] Comment on above: Order Comment: Speci men Type: CEREBROSPINAL FLUIDOrdering Facility: [facility] Address: [address] [place] [phone] Result Comment: Interpretive Result Table INTERPRETATION: Alzheimer [...] TECHNICAL RESULT: 0.27 REFERENCE RANGE: Performed By: Lynda### P ANALISA ####JANLACIRUBEN [id number] [address] [address] CNOVon 10-12-2022 CNOV Office Visit (ANAMIKA) ---- NOÉ JEFFERY ([id number]) 1965 M Date Time Provider Department 10/12/22 10:30 AM MIGUELITO CHICAS During your visit today, we recorded the following information about you: Pulse Blood pressure 58/minute 117/74 Miguelito Chicas APRN.CNP 10/12/2022 2:33 PM Signed [facility] PROCEDURE FOR DIAGNOSTIC TESTING Noé Jeffery, [id number] October 12, 2022, 8:57 AM INFORMED CONSENT The risks, benefits and anticipated outcomes of the procedure, the risks and benefits of the alternatives to the procedure and the roles and tasks of the personnel to be involved were discussed with the patient, who consents to the procedure and agrees to proceed. I verify that I personally obtained Noé Jeffery's consent, Miguelito Chicas APRN.SLEEVE MACHINE TENDER UNIVERSAL PROTOCOL / SAFETY CHECKLIST Procedure to [...] Miguelito Chicas APRN.CNP 10/12/2022 10:31 AM Signed [facility] GOING HOME INSTRUCTIONS POST LP HEADACHE Prevention [...] as coffee or tea You can take tyva-ubc-qwcztwl Tylenol and/or Ibuprofen as directed INFECTION PREVENTION [...] from 8-5pm, please contact our office line [phone] and then hit 0 , please ask our chief administrative officer to page the provider who performed the spinal tap. -For nights or weekends, call or toll free and ask the wire drawing machine operator the page the Neurology resident on-call. 2. If your headache is unusually severe regardless of bedrest or lasts more than two days 3. If you develop a fever 4 (more content not included)... Normal [facility] CSF MANUAL DIFFon 10-12-2022 Diff Total, CSF 57 cells counted [facility] [place] Lymph%, CSF 91 % High 50 - 90 % [facility] [place]%, CSF 9 % Low 10 - 50 % [facility] DIF TTL, CSF [address] [facility] Comment on above: Order Comment: Speci men Type: CEREBROSPINAL FLUIDOrdering Facility: [facility] Address: [address] [place], [place] [id number] Result Comment: Less than 100 cells were counted due to low cellularity of the specimen; therefore, the total differential percentage may be subject to rounding error. Performed By: #### L [id number], 22259-5 ####[facility] LABCLIA [id number] [facility] [id number] [place] [address] [place] LYMPH%, CSF 91 % High 50-90 [facility] Comment on above: Order Comment: Speci men Type: CEREBROSPINAL FLUIDOrdering Facility: [facility] Address: [address] Performed By: #### L [id number], 36187-2 ####[facility] LABCLIA [id number] [place] [address] [place] MONO%, CSF 9 % Low 10-50 [facility] Comment on above: Order Comment: Speci men Type: CEREBROSPINAL FLUIDOrdering Facility: [facility] Address: [address] [place], [place] [address] Performed By: #### L [id number], 47515-9 ####[facility] LABCLIA [id number] [address] OF [facility] Cell count panel (CSF)on Clarity (CSF) Clear Clear [facility] Clarity (Unsp spec) Not Indicated Clear [facility] Color (CSF) Colorless Colorless [facility] Color (Spun CSF) Not Indicated Colorless [facility] CSF Tube Number Tube 1 [facility] RBC Manual cnt (CSF) [#/Vol] 3 cells/uL 0 - 5 cells/uL [facility] WBC Manual cnt (CSF) [#/Vol] 1 cells/uL 0 - 5 cells/uL [facility] Clarity (CSF) Clear Normal Clear [facility] Comment on above: Order Comment: Speci men Type: CEREBROSPINAL FLUIDOrdering Facility: [facility] Address: [address] [place], [place] [address] Performed By: #### L [id number], 48013-3 ####[facility] LABCLIA [id number] [address] [place] Clarity (Unsp spec) Not Indicated Normal Clear Cl [facility] Comment on above: Order Comment: Speci men Type: CEREBROSPINAL FLUIDOrdering Facility: [facility] Address: [address] [place], [place] [address] Performed By: #### L [id number], 17901-9 ####[facility] LABCLIA [id number] [address] [place] Color (CSF) Colorless Normal Colorless [facility] Comment on above: Order Comment: Speci men Type: CEREBROSPINAL FLUIDOrdering Facility: [facility] Address: [address] Performed By: #### L [id number], 90989-4 ####[facility] LABCLIA [id number] [address] STATES OF [facility] Color (Spun CSF) Not Indicated Normal Colorless [facility] Comment on above: Order Comment: Speci men Type: CEREBROSPINAL FLUIDOrdering Facility: [facility] Address: [address] [place], [place] [address] Performed By: #### L [id number], 53321-7 ####[facility] LABCLIA [id number] [address] [place] CSF TUBE NUMBER Tube 1 Normal [facility] Comment on above: Order Comment: Speci men Type: CEREBROSPINAL FLUIDOrdering Facility: [facility] Address: [address] [place] [address] Performed By: #### L [id number], 57392-7 ####[facility] LABCLIA [id number] [address] [place] RBC Manual cnt (CSF) [#/Vol] 3 cells/uL Normal 0-5 [facility] Comment on above: Order Comment: Speci men Type: CEREBROSPINAL FLUIDOrdering Facility: [facility] Address: [address] [place] [address] Performed By: #### L [id number], 99721-9 ####[facility] LABCLIA [id number] [address] WBC Manual cnt (CSF) [#/Vol] 1 cells/uL Normal 0-5 [facility] Comment on above: Order Comment: Speci men Type: CEREBROSPINAL FLUIDOrdering Facility: [facility] Address: [address] [place] [address] Performed By: #### L [id number], 03907-0 ####[facility] LABIA [id number] [place] [address] [place] GLUCOSE CSFon 10-12-2022 Glucose (CSF) [Mass/Vol] 57 mg/dL 40 - 70 mg/dL [facility] Glucose CSF-mCncon 3 Glucose (CSF) [Mass/Vol] 57 mg/dL Normal 40-70 [facility] Comment on above: Order Comment: Speci men Type: CEREBROSPINAL FLUIDOrdering Facility: [facility] Address: [address] [id number] Result Comment: Lumb ar CSF glucose values of healthy patients are approximately 60% of the plasma values and must always be compared with a concurrently measured plasma value for adequate clinical interpretation. References: 1. Glucose HK (GLUC3) [package insert V 12.0 Indonesian]. [facility], [place], [place]. October 2015. 2. Cali Alvarez, Gustavo H. (2015). Chapter 7: Glucose and Lactate. F. Eric edwards al.(eds.), Cerebrospinal Fluid in Clinical Neurology. [place]: [employer]. Performed By: #### 2 342-4, 9570-3 ####[facility] LABIA [id number] [place] [address] [place] PROTEIN CSFon 10-12-2022 Protein (CSF) [Mass/Vol] 32 mg/dL 15 - 45 mg/dL [facility] Prot CSF-mCncon 10-12-2022 Protein (CSF) [Mass/Vol] 32 mg/dL Normal 15-45 [facility] Comment on above: Order Comment: Speci men Type: CEREBROSPINAL FLUIDOrdering Facility: [facility] Address: [address] [place], [place] [id number] Performed By: #### 2 342-4, 2880-3 ####[facility] LABIA [id number] [place] [address] [place] BLOODon 023 [facility] T[place] CSFon 3 Albumin (CSF) [Mass/Vol] 18.8 mg/dL Normal 10.0-30.0 [facility] Comment on above: Order Comment: Speci men Type: CEREBROSPINAL FLUIDOrdering Facility: [facility] Address: [address] [place] [address] Performed By: #### T OURTCSF ####[facility] LABCLIA [id number] [place] [address] [place] Albumin [Mass/Vol] 4200 mg/dL Normal 5502-9440 [facility] Comment on above: Order Comment: Speci men Type: CEREBROSPINAL FLUIDOrdering Facility: [facility] Address: [address] [place] [address] Performed By: #### T OURTCSF ####[facility] LABCLIA [id number] [place] [address] [place] IgG (CSF) [Mass/Vol] 3.0 mg/dL Normal 1.0-3.0 [facility] Comment on above: Order Comment: Speci men Type: CEREBROSPINAL FLUIDOrdering Facility: [facility] Address: [address] [place] [address] Performed By: #### T OURTCSF ####[facility] LABCLIA [id number] [place] [address] [place] IgG [Mass/Vol] 1435 mg/dL Normal 700-1600 [facility] Comment on above: Order Comment: Speci men Type: CEREBROSPINAL FLUIDOrdering Facility: [facility] Address: [address] [place] [address] Performed By: #### T OURTCSF ####[facility] LABCLIA [id number] [place] [address] [place] IgG clearance/Albumin clearance (S+CSF) [Ratio] 0.47 Normal 0.00-0.61 [facility] Comment on above: Order Comment: Speci men Type: CEREBROSPINAL FLUIDOrdering Facility: [facility] Address: [address] [place] [address] Performed By: #### T OURTCSF ####[facility] [id number] [address] IgG synthesis rate Calc (S+CSF) [Mass/Time] 0.0 mg/day Normal 0.0-3.0 [facility] Comment on above: Order Comment: Speci men Type: CEREBROSPINAL FLUIDOrdering Facility: [facility] Address: [address] [place] [address] Performed By: #### T OURTCSF ####[facility] [id number] [address] IgG/Albumin (CSF) [Mass ratio] 0.16 Normal 0.06-0.17 [facility] Comment on above: Order Comment: Speci men Type: CEREBROSPINAL FLUIDOrdering Facility: [facility] Address: [address] [place] [address] Performed By: #### T OURTCSF ####[facility] [id number] [address] VDRL CSF-Titron 10-12-2022 Reagin Ab VDRL (CSF) [Titer] Non-Reactive Normal Nonreactive [facility] Comment on above: Order Comment: Speci men Type: CEREBROSPINAL FLUIDOrdering Facility: [facility] Address: [address] [place] [address] Result Comment: CSF VDRL test is used an aid in diagnosis of neurosyphilis. CSF VDRL detects non-treponemal antibodies and has lower sensitivity than CSF treponemal tests such as FTA, therefore a negative result cannot reliably rule out neurosyphilis. Clinical correlation is required. 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 - aspirin, enteric coated (ASPIRIN, ENTERIC [...] Encounter Status:Closed by ANA JAFFE on 07/22/22 [facility] 05-07-2022 [facility] HNO ID: [id number] Author: Nicole Girard, shorthand teacher Service: Radiology Author Type: Failure Analysis Engineer Type: Allied Health Filed: 05/07/2022 1:54 PM [...] DATA: Not applicable SIGNED BY: Nicole Huffman, shorthand teacher May 07, 2022 1:31 PM [facility] MRI 3D POST PROCESSINGon MRI 3D POST PROCESSING * * *Final Report * * * DATE OF EXAM: May 07 2022 1:47PM [facility] 0280 - MRI 3D POST PROCESSING / PROCEDURE REASON: Cognitive changes * * * * Physician Interpretation * * * * EXAMINATION: MRI BRAIN WO IVCON, MRI 3D POST PROCESSING CLINICAL HISTORY: Cognitive changes TECHNIQUE: Axial FLORIDALMA FLAIR, FLORIDALMA T2, diffusion and susceptibility weighted imaging without contrast, using the ADNI dementia protocol and 3-D post-processing using the NeuroQuant software at an independent workstation with concurrent physician supervision and images were created, reviewed and archived. MQ: [id number] COMPARISON: None RESULT: QUALITATIVE: Acute Intracranial Process: None. Chronic Intracranial Process: Mild microvascular ischemic change.. Age related white matter changes ([facility]) rating: White matter lesions: 1 Basal ganglia lesions: 0 Prior intracranial hemorrhage: Parenchymal microhemorrhages: 0 Other (siderosis/macrohem orrhages (>10mm): Not Applicable Amyloid Related Imaging Abnormalities: [...] = Focal Lesions 2 = Beginning of [place] 3 = Diffuse Involvement of Entire Region [...] results from the analysis charts for details. Color Separation Photographer: MARISELA Transcribe Date/Time: May 07 2022 2:51P Dictated by : MANISH PRICE MD This examination was interpreted and the report reviewed and electronically signed by: MANISH PRICE MD on May 07 2022 3:06PM EST [id number] Normal [facility] MRI BRAIN WO IVCONon -18-2 022 MRI BRAIN WO IVCON * * *Final Report* * * DATE OF EXAM: May 07 2022 1:47PM [facility] 0294 - MRI BRAIN WO IVCON / PROCEDURE REASON: Cognitive changes * * * * Physician Interpretation * * * * EXAMINATION: MRI BRAIN WO IVCON, MRI 3D POST PROCESSING CLINICAL HISTORY: Cognitive changes TECHNIQUE: Axial FLORIDALMA FLAIR, FLORIDALMA T2, diffusion and susceptibility weighted imaging without contrast, using the ADNI dementia protocol and 3-D post-processing using the Metooo software at an independent workstation with concurrent physician supervision and images were created, reviewed and archived. MQ: [id number] COMPARISON: None RESULT: QUALITATIVE: Acute Intracranial Process: None. Chronic Intracranial Process: Mild microvascular ischemic change.. Age related white matter changes ([facility]) rating: White matter lesions: 1 Basal ganglia lesions: 0 Prior intracranial hemorrhage: Parenchymal microhemorrhages: 0 Other (siderosis/macrohem orrhages (>10mm): Not Applicable Amyloid Related Imaging Abnormalities: [...] = Focal Lesions 2 = Beginning of [place] 3 = Diffuse Involvement of Entire Region [...] results from the analysis charts for details. Color Separation Photographer: MARISELA Transcribe Date/Time: May 07 2022 2:51P Dictated by : MANISH PRICE MD This examination was interpreted and the report reviewed and electronically signed by: MANISH PRICE MD on May 07 2022 3:06PM EST [id number] Normal [facility] No Panel Informationon 05-07 [facility] MRI BRAIN WO W CONon MRI BRAIN [...] by: LUCIE TOWNSEND Date: 2022-01-21 17:28 Normal [facility] US CAROTID ART BILon [...] by: LUCIE TOWNSEND Date: 2022-01-21 17:18 Normal [facility] H PYLORI ANTIBODY IGGon 07- H. PYLORI IGG ABS 0.72 Index Value Normal 0.00-0.[address] [facility] Comment on above: Result Comment: Nega tive <0.80 Equivocal 0.80 - 0.89 Positive >0.89 Performed By: #### H PYLLC #### [facility] [address] [address] [address] Janell Marquez INSULINon 01-13-2022 Insulin 15.8 uIU/mL Normal 2.6-24.9 [facility] Comment on above: Performed By: #### T 7, TSH, CMP, LISANDRA, LIPA, LIPID #### [facility] [address] [address] [address] Janell Marquez VIT D 25-OH LABCORPon 2021 Vitamin D, 25-Hydroxy 29.7 ng/mL Critically low 30.0-100.0 [facility] Comment on above: Result Comment: Nelsy min D deficiency has been defined by the [place] of [employer] and an Endocrine Society practice guideline as a level of serum 25-OH vitamin D less than 20 ng/mL (1,2). The Endocrine Society went on to further define vitamin D insufficiency as a level between 21 and 29 ng/mL (2). 1. IOM ([place] of [employer]). 2010. Dietary reference intakes for calcium and D. [place]: The National Academies Press. 2. Kevin MF, Mey NC, Bharat SPENCER, et al. Evaluation, treatment, and prevention of vitamin D deficiency: an Endocrine Society clinical practice guideline. JCEM. 2010; 96(7):1911-30. Performed By: #### T 7, TSH, CMP, LISANDRA, LIPA, LIPID #### [facility] [address] [address] [address] Janell Marquez AMMONIAon 01-12-2022 Ammonia (P) [Mass/Vol] ug/dL Critically low 11-32 [facility] Comment on above: Performed By: #### T 7, TSH, CMP, LISANDRA, LIPA, LIPID #### [facility] [address] [address] [address] Janell Marquez AMYLASEon 01-12-2022 Amylase [Catalytic activity/Vol] 49 U/L Normal 25-115 [facility] Comment on above: Performed By: #### T 7, TSH, CMP, LISANDRA, LIPA, LIPID #### [facility] [address] [place] [address] Dr. Janell Marquez CBC AUTO DIFFon 01-12-2022 BASO # 0.0 103/ul Normal 0.0-0.1 [facility] Comment on above: Performed By: #### T 7, TSH, CMP, LISANDRA, LIPA, LIPID #### [facility] [address] [place] [address] Dr. Janell Marquez Basophils/100 WBC (Bld) 0.2 % Normal 0.2-2.0 [facility] Comment on above: Performed By: #### T 7, TSH, CMP, LISANDRA, LIPA, LIPID #### [facility] [address] [place] [address] Dr. Janell Marquez EO # 0.0 103/ul Normal 0.0-0.7 [facility] Comment on above: Performed By: #### T 7, TSH, CMP, LISANDRA, LIPA, LIPID #### [facility] [address] [place] [address] Dr. Janell Marquez Eosinophils/100 WBC (Bld) 0.3 % Critically low 0.9-7.0 [facility] Comment on above: Performed By: #### T 7, TSH, CMP, LISANDRA, LIPA, LIPID #### [facility] [address] [place] [address] Dr. Janell Marquez Erythrocyte distribution width (RBC) [Ratio] 16.0 % Critically high 11.0-15.0 [facility] Comment on above: Performed By: #### T 7, TSH, CMP, LISANDRA, LIPA, LIPID #### [facility] [address] [place] [address] Dr. Janell Marquez Hematocrit (Bld) [Volume fraction] 46.8 % Normal 42.0-54.0 [facility] Comment on above: Performed By: #### T 7, TSH, CMP, LISANDRA, LIPA, LIPID #### [facility] [address] [place] [address] Dr. Janell Marquez Hemoglobin (Bld) [Mass/Vol] 14.9 g/dL Normal 14.0-18.0 [facility] Comment on above: Performed By: #### T 7, TSH, CMP, LISANDRA, LIPA, LIPID #### [facility] [address] [address] [address] Janell Marquez IG # 0.01 10e3/ul Normal 0.00-0.03 [facility] Comment on above: Performed By: #### T 7, TSH, CMP, LISANDRA, LIPA, LIPID #### [facility] [address] [address] [address] Janell Marquez IG % 0.2 % Normal 0.0-0.5 [facility] Comment on above: Performed By: #### T 7, TSH, CMP, LISANDRA, LIPA, LIPID #### [facility] [address] [place] [address] Dr. Janell Marquez LYMPH # 1.0 103/ul Critically low 1.2-3.8 [facility] Comment on above: Performed By: #### T 7, TSH, CMP, LISANDRA, LIPA, LIPID #### [facility] [address] [place] [address] Dr. Janell Marquez Lymphocytes/100 WBC (Bld) 16.2 % Critically low 20.5-60.0 [facility] Comment on above: Performed By: #### T 7, TSH, CMP, LISANDRA, LIPA, LIPID #### [facility] [address] [place] [address] Dr. Janell Marquez MANUAL DIFF REQ NO Normal [facility] Comment on above: Performed By: #### T 7, TSH, CMP, LISANDRA, LIPA, LIPID #### [facility] [address] [place] [address] Dr. Janell Marquez MCH (RBC) [Entitic mass] 23.9 pg Critically low 25.9-34.0 [facility] Comment on above: Performed By: #### T 7, TSH, CMP, LISANDRA, LIPA, LIPID #### [facility] [address] [place] [address] Dr. Janell Marquez MCHC (RBC) [Mass/Vol] 31.8 g/dL Normal 29.9-35.2 [facility] Comment on above: Performed By: #### T 7, TSH, CMP, LISANDRA, LIPA, LIPID #### [facility] [address] [place] [address] Dr. Janell Marquez MCV (RBC) [Entitic vol] 75.0 fL Critically low 80.0-94.0 [facility] Comment on above: Performed By: #### T 7, TSH, CMP, LISANDRA, LIPA, LIPID #### [facility] [address] [place] [address] Dr. Janell Marquez MONO # 0.4 103/ul Normal 0.3-0.8 [facility] Comment on above: Performed By: #### T 7, TSH, CMP, LISANDRA, LIPA, LIPID #### [facility] [address] [place] [address] Dr. Janell Marquez Monocytes/100 WBC (Bld) 6.0 % Normal 1.7-12.0 [facility] Comment on above: Performed By: #### T 7, TSH, CMP, LISANDRA, LIPA, LIPID #### [facility] [address] [place] [address] Dr. Janell Marquez NEUT # 4.5 103/ul Normal 1.4-6.5 [facility] Comment on above: Performed By: #### T 7, TSH, CMP, LISANDRA, LIPA, LIPID #### [facility] [address] [place] [address] Dr. Janell Marquez Neutrophils/100 WBC (Bld) 77.1 % Critically high 43.0-75.0 [facility] Comment on above: Performed By: #### T 7, TSH, CMP, LISANDRA, LIPA, LIPID #### [facility] [address] [place] [address] Dr. Janell Marquez Platelet mean volume (Bld) [Entitic vol] 9.3 fL Critically low 9.5-13.5 [facility] Comment on above: Performed By: #### T 7, TSH, CMP, LISANDRA, LIPA, LIPID #### [facility] [address] [place] [address] Dr. Janell Marquez PLT 202 103/ul Normal 150-450 [facility] Comment on above: Performed By: #### T 7, TSH, CMP, LISANDRA, LIPA, LIPID #### [facility] [address] [address] [address] Janell Marquez RBC 6.24 106/ul Critically high 4.70-6.10 [facility] Comment on above: Performed By: #### T 7, TSH, CMP, LISANDRA, LIPA, LIPID #### [facility] [address] [address] [address] Janell Marquez WBC 5.9 103/ul Normal 4.0-11.0 [facility] Comment on above: Performed By: #### T 7, TSH, CMP, LISANDRA, LIPA, LIPID #### [facility] [address] [place] [address] Dr. Janell Marquez FREE THYROXINE INDEX T7on FTI 3.14 Normal 1.30-4.50 [facility] Comment on above: Performed By: #### T 7, TSH, CMP, LISANDRA, LIPA, LIPID #### [facility] [address] [address] [address] Janell Marquez T3U 32.0 % Critically low 33.0-40.0 [facility] Comment on above: Performed By: #### T 7, TSH, CMP, LISANDRA, LIPA, LIPID #### [facility] [address] [place] [address] Dr. Janell Marquez T4 [Mass/Vol] 9.80 ug/dL Normal 4.50-12.10 [facility] Comment on above: Performed By: #### T 7, TSH, CMP, LISANDRA, LIPA, LIPID #### [facility] [address] [place] [address] Dr. Janell Marquez GLYCOHEMOGLOBIN A1Con 2021 ADA RECOMMENDATION SEE BELOW Normal [facility] Comment on above: Result Comment: ADA RECOMMENDED LIMIT 4.0 - 6.0 ADA THERAPEUTIC TARGET < 7.0 ACTION SUGGESTED > 7.0 Performed By: #### A 1C #### [facility] [id number] Janell Marquez Glucose [Mass/Vol] 120 mg/dL Normal [facility] Comment on above: Performed By: #### A 1C #### [facility] [address] [address] [address] Janell Marquez HbA1c (Bld) [Mass fraction] 5.8 % Normal 4.5-6.2 [facility] Comment on above: Performed By: #### A 1C #### [facility] [address] [place] [address] Dr. Janell Marquez IRONon 01-12-2022 Iron [Mass/Vol] 70.0 ug/dL Normal 65.0-175.0 [facility] Comment on above: Performed By: #### T 7, TSH, CMP, LISANDRA, LIPA, LIPID #### [facility] [address] [place] [address] Dr. Janell Marquez LIPASEon 01-12-2022 Lipase [Catalytic activity/Vol] 72.0 U/L Critically low 73.0-393.0 [facility] Comment on above: Performed By: #### T 7, TSH, CMP, LISANDRA, LIPA, LIPID #### [facility] [address] [place], [place] [id number] Dr. Janell Marquez LIPID PROFILEon 01-12-2022 CHOL-HDL RATIO NORM SEE BELOW Normal [facility] Comment on above: Result Comment: 3.3 - 4.4 LOW RISK 4.4 - 7.1 AVERAGE RISK 7.1 - 11.0 MODERATE RISK >11.0 HIGH RISK Performed By: #### T 7, TSH, CMP, LISANDRA, LIPA, LIPID #### [facility] [id number] Janell Marquez Cholesterol [Mass/Vol] 220 mg/dL Critically high <=200 [facility] Comment on above: Performed By: #### T 7, TSH, CMP, LISANDRA, LIPA, LIPID #### [facility] [address] [address] [address] Janell Marquez Cholesterol in HDL [Mass/Vol] 47 mg/dL Normal 40-60 [facility] Comment on above: Performed By: #### T 7, TSH, CMP, LISANDRA, LIPA, LIPID #### [facility] [address] [address] [address] Janell Marquez Cholesterol in LDL [Mass/Vol] 157.4 mg/dL Normal [facility] Comment on above: Performed By: #### T 7, TSH, CMP, LISANDRA, LIPA, LIPID #### [facility] [address] [address] [address] Janell Marquez Cholesterol.total/Chol esterol in HDL [Mass ratio] 4.7 {ratio} Normal [facility] Comment on above: Performed By: #### T 7, TSH, CMP, LISANDRA, LIPA, LIPID #### [facility] [address] [place] [address] Dr. Janell Marquez HDL NORMAL > or = 60 mg/dl - LOW CARDIOVASCULAR RISK <40 mg/dl - HIGH CARDIOVASCULAR RISK Normal [facility] Comment on above: Performed By: #### T 7, TSH, CMP, LISANDRA, LIPA, LIPID #### [facility] [address] [place] [address] Dr. Janell Marquez LDL CALC NORMAL SEE BELOW Normal [facility] Comment on above: Result Comment: <100 mg/dl OPTIMAL 100 - 129 mg/dl NEAR OR ABOVE OPTIMAL 130 - 159 mg/dl BORDERLINE HIGH 160 - 189 mg/dl HIGH >190 mg/dl VERY HIGH Performed By: #### T 7, TSH, CMP, LISANDRA, LIPA, LIPID #### [facility] [address] [address] [address] Janell Marquez Triglyceride [Mass/Vol] 78 mg/dL Normal <=150 [facility] Comment on above: Performed By: #### T 7, TSH, CMP, LISANDRA, LIPA, LIPID #### [facility] [address] [address] [address] Janell Marquez VLDL CALC 15.6 mg/dL Normal [facility] Comment on above: Performed By: #### T 7, TSH, CMP, LISANDRA, LIPA, LIPID #### [facility] [address] [place] [address] Dr. Janell Marquez PROF 14(COMP METB)on 022 Albumin [Mass/Vol] 3.5 g/dL Normal 3.4-5.0 [facility] Comment on above: Performed By: #### T 7, TSH, CMP, LISANDRA, LIPA, LIPID #### [facility] [address] [place] [address] Dr. Janell Marquez Albumin/Globulin [Mass ratio] 0.9 {ratio} Normal [facility] Comment on above: Performed By: #### T 7, TSH, CMP, LISANDRA, LIPA, LIPID #### [facility] [address] [place] [address] Dr. Janell Marquez ALP [Catalytic activity/Vol] 69 U/L Normal 46-116 [facility] Comment on above: Performed By: #### T 7, TSH, CMP, LISANDRA, LIPA, LIPID #### [facility] [address] [place] [address] Dr. Janell Marquez ALT [Catalytic activity/Vol] 19 U/L Normal 16-63 [facility] Comment on above: Performed By: #### T 7, TSH, CMP, LISANDRA, LIPA, LIPID #### [facility] [address] [place] [address] Dr. Janell Marquez Anion gap [Moles/Vol] 12.1 mmol/L Normal [facility] Comment on above: Performed By: #### T 7, TSH, CMP, LISANDRA, LIPA, LIPID #### [facility] [address] [place] [address] Dr. Janell Marquez AST [Catalytic activity/Vol] 15 U/L Normal 15-37 [facility] Comment on above: Performed By: #### T 7, TSH, CMP, LISANDRA, LIPA, LIPID #### [facility] [address] [place] [address] Dr. Janell Marquez Bilirubin [Mass/Vol] 0.8 mg/dL Normal 0.2-1.0 [facility] Comment on above: Performed By: #### T 7, TSH, CMP, LISANDRA, LIPA, LIPID #### [facility] [address] [address] [address] Janell Marquez Calcium [Mass/Vol] 8.5 mg/dL Normal 8.5-10.1 [facility] Comment on above: Performed By: #### T 7, TSH, CMP, LISANDRA, LIPA, LIPID #### [facility] [address] [address] [address] Janell Marquez Chloride [Moles/Vol] 105 mmol/L Normal 98-107 [facility] Comment on above: Performed By: #### T 7, TSH, CMP, LISANDRA, LIPA, LIPID #### [facility] [address] [place] [address] Dr. Janell Marquez CO2 [Moles/Vol] 28.0 mmol/L Normal 21.0-32.0 [facility] Comment on above: Performed By: #### T 7, TSH, CMP, LISANDRA, LIPA, LIPID #### [facility] [address] [place] [address] Dr. Janell Marquez Creatinine [Mass/Vol] 1.11 mg/dL Normal 0.70-1.30 [facility] Comment on above: Performed By: #### T 7, TSH, CMP, LISANDRA, LIPA, LIPID #### [facility] [address] [place] [address] Dr. Janell Marquez EGFR-AF CITIZEN [place] >60 Normal >=60 [facility] Comment on above: Performed By: #### T 7, TSH, CMP, LISANDRA, LIPA, LIPID #### [facility] [address] [place] [address] Dr. Janell Marquez EGFR-NON AF CITIZEN OF [place] >60 Normal >=60 [facility] Comment on above: Performed By: #### T 7, TSH, CMP, LISANDRA, LIPA, LIPID #### [facility] [address] [place] [address] Dr. Janell Marquez Globulin (S) [Mass/Vol] 3.7 g/dL Normal [facility] Comment on above: Performed By: #### T 7, TSH, CMP, LISANDRA, LIPA, LIPID #### [facility] [address] [place] [address] Dr. Janell Marquez Glucose [Mass/Vol] 115 mg/dL Critically high 74-[address] [facility] Comment on above: Performed By: #### T 7, TSH, CMP, LISANDRA, LIPA, LIPID #### [facility] [address] [place] [address] Dr. Janell Marquez Potassium [Moles/Vol] 4.1 mmol/L Normal 3.5-5.1 [facility] Comment on above: Performed By: #### T 7, TSH, CMP, LISANDRA, LIPA, LIPID #### [facility] [address] [place] [address] Dr. Janell Marquez Protein [Mass/Vol] 7.2 g/dL Normal 6.4-8.2 [facility] Comment on above: Performed By: #### T 7, TSH, CMP, LISANDRA, LIPA, LIPID #### [facility] [address] [place] [address] Dr. Janell Marquez Sodium [Moles/Vol] 141 mmol/L Normal 136-145 [facility] Comment on above: Performed By: #### T 7, TSH, CMP, LISANDRA, LIPA, LIPID #### [facility] [address] [place] [address] Dr. Janell Marquez Urea nitrogen [Mass/Vol] 16.0 mg/dL Normal 7.0-18.0 [facility] Comment on above: Performed By: #### T 7, TSH, CMP, LISANDRA, LIPA, LIPID #### [facility] [address] [place] [address] Dr. Janell Marquez Urea nitrogen/Creatinine [Mass ratio] 14.4 mg/mg Normal [facility] Comment on above: Performed By: #### T 7, TSH, CMP, LISANDRA, LIPA, LIPID #### [facility] [address] [place] [address] Dr. Janell Marquez TSHon 01-12-2022 TSH 1.412 uIU/mL Normal 0.358-3.740 [facility] Comment on above: Performed By: #### T 7, TSH, CMP, LISANDRA, LIPA, LIPID #### [facility] [address] [address] [address] Janell Marquez VIT B12 AND FOLATEon Cobalamin (Vitamin B12) [Mass/Vol] 411.0 pg/mL Normal 193.0-986.0 [facility] Comment on above: Performed By: #### T 7, TSH, CMP, LISANDRA, LIPA, LIPID #### [facility] [address] [address] [address] Janell Marquez FOLATE 11.10 ng/mL Normal 8.60-58.90 [facility] Comment on above: Performed By: #### T 7, TSH, CMP, LISANDRA, LIPA, LIPID #### [facility] [address] [address] [address] Janell Marquez BASIC METABOLIC PANELon Calcium [Mass/Vol] 8.3 mg/dL Low 8.6-10.3 [facility] Comment on above: Order Comment: No: D o not add to previous draw Performed By: #### 0 0071 #### [facility] [address] [place] [address], [place] Chloride [Moles/Vol] 104 mmol/L Normal 98-107 [facility] Comment on above: Order Comment: No: D o not add to previous draw Performed By: #### 0 0071 #### [facility] [address] [place] [address], [place] CO2 [Moles/Vol] 29 mmol/L Normal 21-31 [facility] Comment on above: Order Comment: No: D o not add to previous draw Performed By: #### 0 0071 #### [facility] [address] [place] [address], [place] Creatinine [Mass/Vol] 0.81 mg/dL Normal 0.70-1.30 [facility] Comment on above: Order Comment: No: D o not add to previous draw Performed By: #### 0 0071 #### [facility] [address] [place] [address], [place] GFR/1.73 sq M.predicted among blacks MDRD (S/P/Bld) [Vol rate/Area] mL/min/{1.73_m2} Normal >60 [facility] Comment on above: Order Comment: No: D o not add to previous draw Performed By: #### 0 0071 #### [facility] [place] [address] [place] [address], [place] GFR/1.73 sq M.predicted among non-blacks MDRD (S/P/Bld) [Vol rate/Area] mL/min/{1.73_m2} Normal >60 [facility] Comment on above: Order Comment: No: D o not add to previous draw Performed By: #### 0 0071 #### [facility] [place] [address] [place] [address], [place] Glucose [Mass/Vol] 144 mg/dL High 70-100 [facility] Comment on above: Order Comment: No: D o not add to previous draw Performed By: #### 0 0071 #### [facility] [place] [address] [place] [address], [place] Potassium [Moles/Vol] 3.6 mmol/L Normal 3.5-5.1 [facility] Comment on above: Order Comment: No: D o not add to previous draw Performed By: #### 0 0071 #### [facility] [place] [address] [place] [address], [place] Sodium [Moles/Vol] 139 mmol/L Normal 136-145 [facility] Comment on above: Order Comment: No: D o not add to previous draw Performed By: #### 0 0071 #### [facility] [place] [address] [place] [address], [place] Urea nitrogen [Mass/Vol] 9 mg/dL Normal 7-25 [facility] Comment on above: Order Comment: No: D o not add to previous draw Performed By: #### 0 0071 #### [facility] [place] [address] CBC COMPLETE BLOOD COUNTon 0 07-26-2020 Erythrocyte distribution width (RBC) [Ratio] 14.6 % Normal 11.5-15.0 [facility] Comment on above: Order Comment: No: D o not add to previous draw Performed By: #### 0 0071 #### [facility] [place] [address] [place] [address], [facility] Hematocrit (Bld) [Volume fraction] 38.8 % Low 39.0-50.0 [facility] Comment on above: Order Comment: No: D o not add to previous draw Performed By: #### 0 0071 #### [facility] [place] [address] [facility] [place] [address], [facility] Hemoglobin (Bld) [Mass/Vol] 12.1 g/dL Low 13.0-17.0 [facility] Comment on above: Order Comment: No: D o not add to previous draw Performed By: #### 0 0071 #### [facility] [place] [address] [facility] [address], [facility] MCH (RBC) [Entitic mass] 23.7 pg Low 27.0-33.0 [facility] Comment on above: Order Comment: No: D o not add to previous draw Performed By: #### 0 0071 #### [facility] [place] [address] [facility] [place] [address], [facility] MCHC (RBC) [Mass/Vol] 31.2 g/dL Low 32.0-35.0 [facility] Comment on above: Order Comment: No: D o not add to previous draw Performed By: #### 0 0071 #### [facility] [place] [address] [facility] [address], [facility] MCV (RBC) [Entitic vol] 75.9 fL Low 82.0-98.0 [facility] Comment on above: Order Comment: No: D o not add to previous draw Performed By: #### 0 0071 #### [facility] [place] [address] [place] [address], [facility] Nucleated RBC/100 WBC (Bld) [Ratio] 0 % Normal 0-0 [facility] Comment on above: Order Comment: No: D o not add to previous draw Performed By: #### 0 0071 #### [facility] [place] [address] [facility] [place] [address], [facility] PLAT CNT 182 10*3/uL Normal 150-400 [facility] Comment on above: Order Comment: No: D o not add to previous draw Performed By: #### 0 0071 #### [facility] [place] [address] [facility] [place] [address], [facility] RBC (Bld) [#/Vol] 5.11 10*6/uL Normal 4.20-5.70 [facility] Comment on above: Order Comment: No: D o not add to previous draw Performed By: #### 0 0071 #### [facility] [place] [address] [facility] [place] [address], [facility] WBC (Bld) [#/Vol] 3.64 10*3/uL Low 4.00-10.60 [facility] Comment on above: Order Comment: No: D o not add to previous draw Performed By: #### 0 0071 #### [facility] [place] [address] [facility] [place] [address], [facility] MAGNESIUM BLOODon 07-26-2020 Magnesium [Mass/Vol] 1.8 mg/dL Low 1.9-2.7 [facility] Comment on above: Order Comment: No: D o not add to previous draw Performed By: #### 1 0070, 75825 #### [facility] [place] [address] [facility] [place] [address], [facility] BASIC METABOLIC PANELon Calcium [Mass/Vol] 8.4 mg/dL Low 8.6-10.3 [facility] Comment on above: Order Comment: No: D o not add to previous draw Performed By: #### 1 69, 32142 #### [facility] [place] [address] [place] [address], [place] Chloride [Moles/Vol] 104 mmol/L Normal 98-107 [facility] Comment on above: Order Comment: No: D o not add to previous draw Performed By: #### 1 69, 92850 #### [facility] [place] [address] [place] [address], [place] CO2 [Moles/Vol] 27 mmol/L Normal 21-31 [facility] Comment on above: Order Comment: No: D o not add to previous draw Performed By: #### 1 69, 35278 #### [facility] [place] [address] [place] [address], [place] Creatinine [Mass/Vol] 0.83 mg/dL Normal 0.70-1.30 [facility] Comment on above: Order Comment: No: D o not add to previous draw Performed By: #### 1 69, 62223 #### [facility] [place] [address] [place] [address], [place] GFR/1.73 sq M.predicted among blacks MDRD (S/P/Bld) [Vol rate/Area] mL/min/{1.73_m2} Normal >60 [facility] Comment on above: Order Comment: No: D o not add to previous draw Performed By: #### 1 69, 37503 #### [facility] [place] [address] [place] [address], [place] GFR/1.73 sq M.predicted among non-blacks MDRD (S/P/Bld) [Vol rate/Area] mL/min/{1.73_m2} Normal >60 [facility] Comment on above: Order Comment: No: D o not add to previous draw Performed By: #### 1 69, 71371 #### [facility] [place] [address] [place] [address], [place] Glucose [Mass/Vol] 162 mg/dL High 70-100 [facility] Comment on above: Order Comment: No: D o not add to previous draw Performed By: #### 1 69, 12433 #### [facility] [place] [address] [place] [address], [place] Potassium [Moles/Vol] 3.4 mmol/L Low 3.5-5.1 [facility] Comment on above: Order Comment: No: D o not add to previous draw Performed By: #### 1 69, 81791 #### [facility] [place] [address] [place] [address], [facility] Sodium [Moles/Vol] 137 mmol/L Normal 136-145 [facility] Comment on above: Order Comment: No: D o not add to previous draw Performed By: #### 1 69, 23210 #### [facility] [place] [address] [place] [address], [facility] Urea nitrogen [Mass/Vol] 18 mg/dL Normal 7-25 [facility] Comment on above: Order Comment: No: D o not add to previous draw Performed By: #### 1 69, 52858 #### [facility] [place] [address] [place] [id number], [facility] CBC COMPLETE BLOOD COUNTon 0 - Erythrocyte distribution width (RBC) [Ratio] 15.2 % High 11.5-15.0 [facility] Comment on above: Order Comment: No: D o not add to previous draw Performed By: #### 0 1 #### [facility] [place] [address] [place] [address], [place] Hematocrit (Bld) [Volume fraction] 40.7 % Normal 39.0-50.0 [facility] Comment on above: Order Comment: No: D o not add to previous draw Performed By: #### 0 0071 #### [facility] [place] [address] [place] [id number], [place] Hemoglobin (Bld) [Mass/Vol] 12.7 g/dL Low 13.0-17.0 [facility] Comment on above: Order Comment: No: D o not add to previous draw Performed By: #### 0 0071 #### [facility] [place] [address] [place] [address], [facility] MCH (RBC) [Entitic mass] 23.3 pg Low 27.0-33.0 [facility] Comment on above: Order Comment: No: D o not add to previous draw Performed By: #### 0 0071 #### [facility] [place] [address] [place] [address], [facility] MCHC (RBC) [Mass/Vol] 31.2 g/dL Low 32.0-35.0 [facility] Comment on above: Order Comment: No: D o not add to previous draw Performed By: #### 0 0071 #### [facility] [place] [address] [facility] [address], [facility] MCV (RBC) [Entitic vol] 74.8 fL Low 82.0-98.0 [facility] Comment on above: Order Comment: No: D o not add to previous draw Performed By: #### 0 0071 #### [facility] [place] [address] [facility] [address], [facility] Nucleated RBC/100 WBC (Bld) [Ratio] 0 % Normal 0-0 [facility] Comment on above: Order Comment: No: D o not add to previous draw Performed By: #### 0 0071 #### [facility] [place] [address] [facility] [place] [id number], [place] PLAT CNT 207 10*3/uL Normal 150-400 [facility] Comment on above: Order Comment: No: D o not add to previous draw Performed By: #### 0 0071 #### [facility] [place] [address] [place] [id number], [facility] RBC (Bld) [#/Vol] 5.44 10*6/uL Normal 4.20-5.70 [facility] Comment on above: Order Comment: No: D o not add to previous draw Performed By: #### 0 0071 #### [facility] [place] [address] [facility]. [address] WBC (Bld) [#/Vol] 3.05 10*3/uL Low 4.00-10.60 [facility] Comment on above: Order Comment: No: D o not add to previous draw Performed By: #### 0 0071 #### [facility] [place] [address] [facility]. [address] MAGNESIUM BLOODon 07-25-2020 Magnesium [Mass/Vol] 1.8 mg/dL Low 1.9-2.7 [facility] Comment on above: Order Comment: No: D o not add to previous draw Performed By: #### 1 0070, 23829 #### [facility] [place] [address] [facility]. [address] POC GLUCOSE LABon 07-25-2020 Glucose [Mass/Vol] 155 mg/dL High 70-100 [facility] Comment on above: Performed By: #### 0 0071, 34488 #### [facility] [place] [address] *SARS-CoV-2 COVID-19on 07-24 SARS-CoV-2 (COVID-19) RNA LILLIANA+probe Ql (Unsp spec) Not detected Normal Not Detected [facility] Comment on above: Order Comment: No: D o not add to previous draw Performed By: #### 0 0071, [id number] #### [facility] [place] [address] [facility]. [address] CBC W/DIFFon 07-24-2020 ABS IMM GRANS 0.0 10*3/uL Normal 0.0-0.2 [facility] Comment on above: Performed By: #### 0 0071 #### [facility] [place] [address] [place] [address], [facility] ABS NEUTROPHILS 2.0 10*3/uL Normal 1.6-7.6 [facility] Comment on above: Performed By: #### 0 0071 #### [facility] [place] [address] [facility] [place] [address], [facility] Basophils (Bld) [#/Vol] 0.0 10*3/uL Normal 0.0-0.2 [facility] Comment on above: Performed By: #### 0 0071 #### [facility] [place] [address] [facility] [address], [facility] Basophils/100 WBC (Bld) 0.4 % Normal 0.0-1.0 [facility] Comment on above: Performed By: #### 0 0071 #### [facility] [place] [address] [facility] [address], [facility] Eosinophils (Bld) [#/Vol] 0.0 10*3/uL Normal 0.0-0.5 [facility] Comment on above: Performed By: #### 0 0071 #### [facility] [place] [address] [place] [address], [facility] Eosinophils/100 WBC (Bld) 0.7 % Normal 0.0-6.0 [facility] Comment on above: Performed By: #### 0 0071 #### [facility] [place] [address] [facility] [address], [facility] Erythrocyte distribution width (RBC) [Ratio] 15.8 % High 11.5-15.0 [facility] Comment on above: Performed By: #### 0 0071 #### [facility] [place] [address] [place] [address], [facility] Hematocrit (Bld) [Volume fraction] 45.5 % Normal 39.0-50.0 [facility] Comment on above: Performed By: #### 0 0071 #### [facility] [place] [address] Hemoglobin (Bld) [Mass/Vol] 14.4 g/dL Normal 13.0-17.0 [facility] Comment on above: Performed By: #### 0 0071 #### [facility] [place] [address] [place] [address], [facility] IMMATURE GRANS 0.4 % Normal 0.0-1.0 [facility] Comment on above: Performed By: #### 0 0071 #### [facility] [place] [address] [place] [address], [facility] Lymphocytes (Bld) [#/Vol] 0.4 10*3/uL Low 1.2-4.0 [facility] Comment on above: Performed By: #### 0 0071 #### [facility] [place] [address] [place] [address], [facility] Lymphocytes/100 WBC (Bld) 14.5 % Low 20.0-45.0 [facility] Comment on above: Performed By: #### 0 0071 #### [facility] [place] [address] [place] [address], [facility] MCH (RBC) [Entitic mass] 23.7 pg Low 27.0-33.0 [facility] Comment on above: Performed By: #### 0 0071 #### [facility] [place] [address] [place] [address], [facility] MCHC (RBC) [Mass/Vol] 31.6 g/dL Low 32.0-35.0 [facility] Comment on above: Performed By: #### 0 0071 #### [facility] [place] [address] [place] [address], [facility] MCV (RBC) [Entitic vol] 75.0 fL Low 82.0-98.0 [facility] Comment on above: Performed By: #### 0 0071 #### [facility] [place] [address] [place] [address], [facility] Monocytes (Bld) [#/Vol] 0.3 10*3/uL Normal 0.1-1.0 [facility] Comment on above: Performed By: #### 0 0071 #### [facility] [place] [address] [place] [address], [facility] MONOS 12.3 % High 5.0-12.0 [facility] Comment on above: Performed By: #### 0 0071 #### [facility] [place] [address] [place] [address], [facility] Neutrophils/100 WBC (Bld) 71.7 % Normal 40.0-72.0 [facility] Comment on above: Performed By: #### 0 0071 #### [facility] [place] [address] [facility] [facility] [address], [facility] Nucleated RBC/100 WBC (Bld) [Ratio] 0 % Normal 0-0 [facility] Comment on above: Performed By: #### 0 0071 #### [facility] [place] [address] [facility] [address], [facility] PLAT CNT 225 10*3/uL Normal 150-400 [facility] Comment on above: Performed By: #### 0 0071 #### [facility] [place] [address] [facility] [place] [address], [facility] RBC (Bld) [#/Vol] 6.07 10*6/uL High 4.20-5.70 [facility] Comment on above: Performed By: #### 0 0071 #### [facility] [place] [address] [facility] [place] [id number], [facility] WBC (Bld) [#/Vol] 2.76 10*3/uL Low 4.00-10.60 [facility] Comment on above: Performed By: #### 0 0071 #### [facility] [place] [address] [place] [id number], [facility] COMP METABOLIC PANELon 07-24 Albumin [Mass/Vol] 3.7 g/dL Normal 3.5-5.7 [facility] Comment on above: Performed By: #### 3 5200, 84099, 81418 #### [facility] [place] [address] [place] [address], [place] ALKALINE PHOSPH 58 IU/L Normal 34-104 [facility] Comment on above: Performed By: #### 3 5200, 05347, 35139 #### [facility] [place] [address] [place] [address], [place] ALT [Catalytic activity/Vol] 12 U/L Normal 7-52 [facility] Comment on above: Performed By: #### 3 5200, 16355, 63084 #### [facility] [place] [address] [place] [address], [place] AST [Catalytic activity/Vol] 15 U/L Normal 13-39 [facility] Comment on above: Performed By: #### 3 5200, 96005, 35710 #### [facility] [place] [address] [place] [address], [place] Bilirubin [Mass/Vol] 1.3 mg/dL High 0.3-1.0 [facility] Comment on above: Performed By: #### 3 5200, 65145, 87564 #### [facility] [place] [address] [place] [address], [place] Calcium [Mass/Vol] 8.7 mg/dL Normal 8.6-10.3 [facility] Comment on above: Performed By: #### 3 5200, 21644, 37154 #### [facility] [place] [address] [place] [address], [place] Chloride [Moles/Vol] 99 mmol/L Normal 98-107 [facility] Comment on above: Performed By: #### 3 5200, 41012, 46450 #### [facility] [place] [address] [place] [address], [place] CO2 [Moles/Vol] 25 mmol/L Normal 21-31 [facility] Comment on above: Performed By: #### 3 5200, 38615, 50293 #### [facility] [place] [address] [place] [address], [place] Creatinine [Mass/Vol] 1.01 mg/dL Normal 0.70-1.30 [facility] Comment on above: Performed By: #### 3 5200, 12444, 39168 #### [facility] [place] [address] [place] [address], [place] GFR/1.73 sq M.predicted among blacks MDRD (S/P/Bld) [Vol rate/Area] mL/min/{1.73_m2} Normal >60 [facility] Comment on above: Performed By: #### 3 5200, 55593, 53173 #### [facility] [place] [address] [place] [address], [place] GFR/1.73 sq M.predicted among non-blacks MDRD (S/P/Bld) [Vol rate/Area] mL/min/{1.73_m2} Normal >60 [facility] Comment on above: Performed By: #### 3 5200, 10887, 45284 #### [facility] [place] [address] [place] [address], [place] Glucose [Mass/Vol] 142 mg/dL High 70-100 [facility] Comment on above: Performed By: #### 3 5200, 99959, 96901 #### [facility] [place] [address] [place] [address], [place] Potassium [Moles/Vol] 3.9 mmol/L Normal 3.5-5.1 [facility] Comment on above: Performed By: #### 3 5200, 34363, 15486 #### [facility] [place] [address] [place] [address], [place] Protein [Mass/Vol] 6.6 g/dL Normal 6.0-8.3 [facility] Comment on above: Performed By: #### 3 5200, 83754, 80605 #### [address] Sodium [Moles/Vol] 134 mmol/L Low 136-145 [facility] Comment on above: Performed By: #### 3 5200, 23323, 70185 #### [id number] [place] [address] Urea nitrogen [Mass/Vol] 20 mg/dL Normal 7-25 [facility] Comment on above: Performed By: #### 3 5200, 44725, 47261 #### [address] [facility] ABDOMEN AND PELVIS W IV CONTRAST [facility] Department of Radiology [address] [place] [id number] Patient Name: NOÉ JEFFERY : 1965 Sex: M Age: Race: Other Pt. Location: [facility] Patient Status: E Ordered Date: 07/24/2020 3:15:00 PM Completed Date: 07/24/2020 03:58 PM Requesting Provider: STEFF ELDER Attending Provider: DARIUSZ DIAZ Report Copy To: Signs & Symptoms: [...] per clinical notes with free air and intraperitoneal/pel abena fluid. Perforated viscus would be difficult to [...] achievable. Electronically signed: Miguelito Balderas. Transcribed by: [email or web address], User Resident: Electronically Signed by: MIGUELITO BALDERAS @ 07/24/2020 04:14 PM Normal [facility] Comment on above: Order Comment: No: D o not add to previous draw LACTATE BLOODon 07-24-2020 Lactate [Moles/Vol] 1.0 mmol/L Normal 0.5-2.2 [facility] Comment on above: Performed By: #### 1 0054 #### [address] LIPASE BLOODon 07-24-2020 LIPASE 7 Units/L Low 11-82 [facility] Comment on above: Performed By: #### 3 5200, 88747, 60112 #### [facility] [place] [address] PORTABLE CHEST 1 VIEWon PORTABLE CHEST 1 VIEW [facility] Department of Radiology [address] [place] [id number] Patient Name: NOÉ JEFFERY : 1965 Sex: M Age: Race: Other Pt. Location: [facility] Patient Status: E Ordered Date: 07/24/2020 3:15:00 PM Completed Date: 07/24/2020 03:51 PM Requesting Provider: STEFF ELDER Attending Provider: DARIUSZ DIAZ Report Copy To: Signs & Symptoms: [...] indicated. Electronically signed: Miguelito Balderas. Transcribed by: [email or web address], User Resident: Electronically Signed by: MIGUELITO BALDERAS @ 07/24/2020 03:58 PM Normal [facility] Comment on above: Order Comment: No: D o not add to previous draw TROPONIN-Ion 07-24-2020 Troponin I.cardiac [Mass/Vol] 0.00 ng/mL Normal 0.00-0.04 [facility] Comment on above: Result Comment: REFE RENCE RANGES: 0.00 - 0.14 ng/ml NEGATIVE 0.15 - 0.25 ng/ml INDETERMINATE > 0.25 ng/ml INDICATIVE OF AN M.I. Performed By: #### 3 5200, 37592, 21431 #### [facility] [place] [address] [place] [address], [facility] URINALYSIS REFLEXon 07-24-19 21 Appearance (U) CLEAR Normal CLEAR [facility] Comment on above: Order Comment: No: D o not add to previous draw Performed By: #### 0 0071, 36535 #### [facility] [place] [address] [place] [address], [facility] Bilirubin Ql (U) Negative Normal NEGATIVE [facility] Comment on above: Order Comment: No: D o not add to previous draw Performed By: #### 0 0071, [id number] #### [facility] [place] [address] [place] [address], [place] Color (U) ANEL Abnormal YELLOW [facility] Comment on above: Order Comment: No: D o not add to previous draw Performed By: #### 0 0071, 78968 #### [facility] [place] [address] [place] [address], [place] Glucose Ql (U) Negative Normal NEGATIVE [facility] Comment on above: Order Comment: No: D o not add to previous draw Performed By: #### 0 0071, [id number] #### [facility] [place] [address] [place] [address], [place] Hemoglobin Ql (U) Negative Normal NEGATIVE [facility] Comment on above: Order Comment: No: D o not add to previous draw Performed By: #### 0 0071, 25691 #### [facility] [place] [address] [place] [address], [place] KETONE 20 mg/dL Abnormal NEGATIVE [facility] Comment on above: Order Comment: No: D o not add to previous draw Performed By: #### 0 0071, 38490 #### [facility] [place] [address] [place] [address], [place] LEUK DINO Negative Normal NEGATIVE [facility] Comment on above: Order Comment: No: D o not add to previous draw Performed By: #### 0 0071, [id number] #### [facility] [place] [address] [place] [address], [place] MICRO NOT DONE Normal [facility] Comment on above: Order Comment: No: D o not add to previous draw Result Comment: Micr oscopics not performed on urines with negative chemical reactions unless requested in original order Performed By: #### 0 0071, [id number] #### [facility] [place] [address] [place] [address], [place] Nitrite Ql (U) Negative Normal NEGATIVE [facility] Comment on above: Order Comment: No: D o not add to previous draw Performed By: #### 0 0071, [id number] #### [facility] [place] [address] [place] [address], [facility] pH (U) 5.0 [pH] Normal 5.0-8.0 [facility] Comment on above: Order Comment: No: D o not add to previous draw Performed By: #### 0 0071, 67042 #### [facility] [place] [address] [place] [address], [facility] Protein Ql (U) Negative Normal NEGATIVE [facility] Comment on above: Order Comment: No: D o not add to previous draw Performed By: #### 0 0071, 48261 #### [facility] [place] [address] [place] [id number], [facility] SPEC GRAV 1.084 High 1.015-1.020 [facility] Comment on above: Order Comment: No: D o not add to previous draw Result Comment: DONE BY DILUTION Performed By: #### 0 0071, 12859 #### [facility] [place] [address] [place] [address], [facility] BASIC METABOLIC PANELon 02-0 Calcium [Mass/Vol] 8.8 mg/dL Normal 8.6-10.3 [facility] Comment on above: Order Comment: No: D o not add to previous draw Performed By: #### 0 0071, 74816 #### [facility] [place] [address] [place] [address], [place] Chloride [Moles/Vol] 103 mmol/L Normal 98-107 [facility] Comment on above: Order Comment: No: D o not add to previous draw Performed By: #### 0 0071, 96597 #### [facility] [place] [address] [place] [address], [place] CO2 [Moles/Vol] 27 mmol/L Normal 21-31 [facility] Comment on above: Order Comment: No: D o not add to previous draw Performed By: #### 0 0071, 05220 #### [facility] [place] [address] [place] [address], [place] Creatinine [Mass/Vol] 0.87 mg/dL Normal 0.70-1.30 [facility] Comment on above: Order Comment: No: D o not add to previous draw Performed By: #### 0 0071, 10010 #### [facility] [place] [address] [place] [address], [place] GFR/1.73 sq M.predicted among blacks MDRD (S/P/Bld) [Vol rate/Area] mL/min/{1.73_m2} Normal >60 [facility] Comment on above: Order Comment: No: D o not add to previous draw Performed By: #### 0 0071, 46041 #### [facility] [place] [address] [place] [address], [place] GFR/1.73 sq M.predicted among non-blacks MDRD (S/P/Bld) [Vol rate/Area] mL/min/{1.73_m2} Normal >60 [facility] Comment on above: Order Comment: No: D o not add to previous draw Performed By: #### 0 0071, 49086 #### [facility] [place] [address] [place] [address], [place] Glucose [Mass/Vol] 156 mg/dL High 70-100 [facility] Comment on above: Order Comment: No: D o not add to previous draw Performed By: #### 0 0071, 01267 #### [facility] [place] [address] [place] [address], [place] Potassium [Moles/Vol] 3.9 mmol/L Normal 3.5-5.1 [facility] Comment on above: Order Comment: No: D o not add to previous draw Performed By: #### 0 0071, 24521 #### [facility] [place] [address] [place] [address], [place] Sodium [Moles/Vol] 136 mmol/L Normal 136-145 [facility] Comment on above: Order Comment: No: D o not add to previous draw Performed By: #### 0 0071, 89079 #### [facility] [place] [address] [place] [address], [facility] Urea nitrogen [Mass/Vol] 8 mg/dL Normal 7-25 [facility] Comment on above: Order Comment: No: D o not add to previous draw Performed By: #### 0 0071, 03191 #### [facility] [place] [address] [place] [address], [facility] CBC COMPLETE BLOOD COUNTon 0 - Erythrocyte distribution width (RBC) [Ratio] 15.1 % High 11.5-15.0 [facility] Comment on above: Order Comment: No: D o not add to previous draw Performed By: #### 0 0071 #### [facility] [place] [address] [place] [address], [facility] Hematocrit (Bld) [Volume fraction] 44.1 % Normal 39.0-50.0 [facility] Comment on above: Order Comment: No: D o not add to previous draw Performed By: #### 0 0071 #### [facility] [place] [address] [place] [address], [facility] Hemoglobin (Bld) [Mass/Vol] 13.4 g/dL Normal 13.0-17.0 [facility] Comment on above: Order Comment: No: D o not add to previous draw Performed By: #### 0 0071 #### [facility] [place] [address] [place] [address], [facility] MCH (RBC) [Entitic mass] 23.1 pg Low 27.0-33.0 [facility] Comment on above: Order Comment: No: D o not add to previous draw Performed By: #### 0 0071 #### [facility] [place] [address] [place] [address], [facility] MCHC (RBC) [Mass/Vol] 30.4 g/dL Low 32.0-35.0 [facility] Comment on above: Order Comment: No: D o not add to previous draw Performed By: #### 0 0071 #### [facility] [place] [address] [place] [address], [facility] MCV (RBC) [Entitic vol] 76.0 fL Low 82.0-98.0 [facility] Comment on above: Order Comment: No: D o not add to previous draw Performed By: #### 0 0071 #### [facility] [place] [address] [facility] [address], [facility] Nucleated RBC/100 WBC (Bld) [Ratio] 0 % Normal 0-0 [facility] Comment on above: Order Comment: No: D o not add to previous draw Performed By: #### 0 0071 #### [facility] [place] [address] [facility] [place] [address], [facility] PLAT CNT 190 10*3/uL Normal 150-400 [facility] Comment on above: Order Comment: No: D o not add to previous draw Performed By: #### 0 0071 #### [facility] [place] [address] [facility] [place] [address], [facility] RBC (Bld) [#/Vol] 5.80 10*6/uL High 4.20-5.70 [facility] Comment on above: Order Comment: No: D o not add to previous draw Performed By: #### 0 0071 #### [facility] [place] [address] [facility] [place] [id number], [facility] WBC (Bld) [#/Vol] 7.98 10*3/uL Normal 4.00-10.60 [facility] Comment on above: Order Comment: No: D o not add to previous draw Performed By: #### 0 0071 #### [facility] [place] [address] [place] [address], [facility] MAGNESIUM BLOODon 07-23-2020 Magnesium [Mass/Vol] 1.9 mg/dL Normal 1.9-2.7 [facility] Comment on above: Order Comment: No: D o not add to previous draw Performed By: #### 0 0071, [id number] #### [facility] [place] [address] [place] [address], [place] POC GLUCOSE LABon 07-23-2020 Glucose [Mass/Vol] 140 mg/dL High 70-100 [facility] Comment on above: Performed By: #### 0 0071 #### [facility] [place] [address] [place] [address], [place] Glucose [Mass/Vol] 155 mg/dL High 70-100 [facility] Comment on above: Performed By: #### 0 0071, 20286 #### [facility] [place] [address] [place] [address], [place] Glucose [Mass/Vol] 164 mg/dL High 70-100 [facility] Comment on above: Performed By: #### 0 0071 #### [facility] [place] [address] [place] [address], [place] BASIC METABOLIC PANELon Calcium [Mass/Vol] 8.3 mg/dL Low 8.6-10.3 [facility] Comment on above: Order Comment: No: D o not add to previous draw Performed By: #### 0 0071, 17255 #### [facility] [place] [address] [place] [address], [place] Chloride [Moles/Vol] 103 mmol/L Normal 98-107 [facility] Comment on above: Order Comment: No: D o not add to previous draw Performed By: #### 0 0071, 07320 #### [facility] [place] [address] [place] [address], [place] CO2 [Moles/Vol] 26 mmol/L Normal 21-31 [facility] Comment on above: Order Comment: No: D o not add to previous draw Performed By: #### 0 0071, 36197 #### [facility] [place] [address] [place] [address], [place] Creatinine [Mass/Vol] 0.90 mg/dL Normal 0.70-1.30 [facility] Comment on above: Order Comment: No: D o not add to previous draw Performed By: #### 0 0071, 26192 #### [facility] [place] [address] [place] [address], [place] GFR/1.73 sq M.predicted among blacks MDRD (S/P/Bld) [Vol rate/Area] mL/min/{1.73_m2} Normal >60 [facility] Comment on above: Order Comment: No: D o not add to previous draw Performed By: #### 0 0071, 25204 #### [facility] [place] [address] [place] [address], [place] GFR/1.73 sq M.predicted among non-blacks MDRD (S/P/Bld) [Vol rate/Area] mL/min/{1.73_m2} Normal >60 [facility] Comment on above: Order Comment: No: D o not add to previous draw Performed By: #### 0 0071, 24689 #### [facility] [place] [address] [place] [address], [place] Glucose [Mass/Vol] 166 mg/dL High 70-100 [facility] Comment on above: Order Comment: No: D o not add to previous draw Performed By: #### 0 0071, 48383 #### [facility] [place] [address] [place] [address], [place] Potassium [Moles/Vol] 4.1 mmol/L Normal 3.5-5.1 [facility] Comment on above: Order Comment: No: D o not add to previous draw Performed By: #### 0 0071, 21647 #### [facility] [place] [address] [place] [address], [place] Sodium [Moles/Vol] 136 mmol/L Normal 136-145 [facility] Comment on above: Order Comment: No: D o not add to previous draw Performed By: #### 0 0071, 77511 #### [facility] [place] [address] Urea nitrogen [Mass/Vol] 12 mg/dL Normal 7-25 [facility] Comment on above: Order Comment: No: D o not add to previous draw Performed By: #### 0 0071, 72758 #### [facility] [place] [address] [facility] CBC COMPLETE BLOOD COUNTon - Erythrocyte distribution width (RBC) [Ratio] 14.9 % Normal 11.5-15.0 [facility] Comment on above: Order Comment: No: D o not add to previous draw Performed By: #### 0 0071, 53132 #### [facility] [place] [address] Hematocrit (Bld) [Volume fraction] 42.8 % Normal 39.0-50.0 [facility] Comment on above: Order Comment: No: D o not add to previous draw Performed By: #### 0 0071, 45586 #### [facility] [place] [address] [facility] Hemoglobin (Bld) [Mass/Vol] 13.3 g/dL Normal 13.0-17.0 [facility] Comment on above: Order Comment: No: D o not add to previous draw Performed By: #### 0 0071, 96924 #### [facility] [place] [address] [facility] [place] [address], [facility] MCH (RBC) [Entitic mass] 23.4 pg Low 27.0-33.0 [facility] Comment on above: Order Comment: No: D o not add to previous draw Performed By: #### 0 0071, 31202 #### [facility] [place] [address] MCHC (RBC) [Mass/Vol] 31.1 g/dL Low 32.0-35.0 [facility] Comment on above: Order Comment: No: D o not add to previous draw Performed By: #### 0 0071, 62663 #### [facility] [place] [address] [facility] [address], [facility] MCV (RBC) [Entitic vol] 75.2 fL Low 82.0-98.0 [facility] Comment on above: Order Comment: No: D o not add to previous draw Performed By: #### 0 0071, 24903 #### [facility] [place] [address] [place] [address], [facility] Nucleated RBC/100 WBC (Bld) [Ratio] 0 % Normal 0-0 [facility] Comment on above: Order Comment: No: D o not add to previous draw Performed By: #### 0 0071, 35122 #### [facility] [place] [address] [place] [address], [facility] PLAT CNT 211 10*3/uL Normal 150-400 [facility] Comment on above: Order Comment: No: D o not add to previous draw Performed By: #### 0 0071, 43085 #### [facility] [place] [address] [facility]. [place] [id number], [facility] RBC (Bld) [#/Vol] 5.69 10*6/uL Normal 4.20-5.70 [facility] Comment on above: Order Comment: No: D o not add to previous draw Performed By: #### 0 0071, 27575 #### [facility] [place] [address] [facility]. [place] [id number], [facility] WBC (Bld) [#/Vol] 8.55 10*3/uL Normal 4.00-10.60 [facility] Comment on above: Order Comment: No: D o not add to previous draw Performed By: #### 0 0071, 49322 #### [facility] [place] [address] [place] [address], [facility] MAGNESIUM BLOODon 07-22-2020 Magnesium [Mass/Vol] 2.0 mg/dL Normal 1.9-2.7 [facility] Comment on above: Order Comment: No: D o not add to previous draw Performed By: #### 0 0071, 44526 #### [facility] [place] [address] [place] [address], [facility] Operative Reporton Operative Report MR#: [id number] [facility] Pt. Name: Noé Jeffery Room #: [id number] Discharge Date: Birthdate: 1965 OPERATIVE REPORT DATE [...] Izaguirre M.D. Date Trans: 07/21/2020 10:04 P/patricia [id number] cc: Paul Lopez M.D. [address] [id number] Normal [facility] POC GLUCOSE LABon 07-22-2020 Glucose [Mass/Vol] 142 mg/dL High 70-100 [facility] Comment on above: Performed By: #### 0 0071, 92832 #### [facility] [place] [address] [place] [address], [place] Glucose [Mass/Vol] 113 mg/dL High 70-100 [facility] Comment on above: Performed By: #### 0 0071, 15674 #### [facility] [place] [address] [place] [address], [place] Glucose [Mass/Vol] 153 mg/dL High 70-100 [facility] Comment on above: Performed By: #### 0 0071, 57705 #### [facility] [place] [address] [place] [address], [place] Glucose [Mass/Vol] 127 mg/dL High 70-100 [facility] Comment on above: Performed By: #### 0 0071, 57066 #### [facility] [place] [address] [place] [address], [place] Glucose [Mass/Vol] 176 mg/dL High 70-100 [facility] Comment on above: Performed By: #### 0 0071 #### [facility] [place] [address] [place] [address], [place] *MRSA/MSSA DNA NASALon 07-21 *MRSA/MSSA DNA NASAL Clinical Report: (D) Specimen: NASAL SWAB Collected: 07/21/2020 00:00 Status: Final Last Updated: 07/21/2020 15:28 (1) No collection time noted on specimen or requisition. The collection time recorded is the time of receipt in the lab. MSSA DNA (Final) Methicillin Susceptible Staphylococcus aureus DNA Detected MRSA DNA (Final) Negative Normal [facility] Comment on above: Order Comment: No: D o not add to previous draw Performed By: #### 0 0071, 24738 #### [facility] [place] [address] [place] [address], [facility] POC GLUCOSE LABon 07-21-2020 Glucose [Mass/Vol] 168 mg/dL High 70-100 [facility] Comment on above: Performed By: #### 0 0071 #### [facility] [place] [address] [place] [address], [place] Glucose [Mass/Vol] 211 mg/dL High 70-100 [facility] Comment on above: Performed By: #### 0 0071, 04435 #### [facility] [place] [address] [place] [address], [place] Glucose [Mass/Vol] 117 mg/dL High 70-100 [facility] Comment on above: Performed By: #### 0 0071, 77480 #### [facility] [place] [address] [place] [address], [facility] *SARS-CoV-2 COVID-19on 07-18 SARS-CoV-2 (COVID-19) RNA LILLIANA+probe Ql (Unsp spec) Not detected Normal Not Detected [facility] Comment on above: Order Comment: No: D o not add to previous draw Performed By: #### 0 0071, 84251 #### [facility] [place] [address] [place] [address], [place] BASIC METABOLIC PANELon 06-21 Calcium [Mass/Vol] 9.2 mg/dL Normal 8.6-10.3 [facility] Comment on above: Performed By: #### 0 0071 #### [facility] [place] [address] [place] [address], [place] Chloride [Moles/Vol] 100 mmol/L Normal 98-107 [facility] Comment on above: Performed By: #### 0 0071 #### [facility] [place] [address] [place] [address], [place] CO2 [Moles/Vol] 30 mmol/L Normal 21-31 [facility] Comment on above: Performed By: #### 0 0071 #### [facility] [place] [address] [place] [address], [place] Creatinine [Mass/Vol] 1.01 mg/dL Normal 0.70-1.30 [facility] Comment on above: Performed By: #### 0 0071 #### [facility] [place] [address] [place] [address], [place] GFR/1.73 sq M.predicted among blacks MDRD (S/P/Bld) [Vol rate/Area] mL/min/{1.73_m2} Normal >60 [facility] Comment on above: Performed By: #### 0 0071 #### [facility] [place] [address] [place] [address], [place] GFR/1.73 sq M.predicted among non-blacks MDRD (S/P/Bld) [Vol rate/Area] mL/min/{1.73_m2} Normal >60 [facility] Comment on above: Performed By: #### 0 0071 #### [facility] [place] [address] [place] [address], [place] Glucose [Mass/Vol] 121 mg/dL High 70-100 [facility] Comment on above: Performed By: #### 0 0071 #### [facility] [place] [address] [place] [address], [place] Potassium [Moles/Vol] 4.4 mmol/L Normal 3.5-5.1 [facility] Comment on above: Performed By: #### 0 0071 #### [facility] [place] [address] [place] [address], [place] Sodium [Moles/Vol] 135 mmol/L Low 136-145 [facility] Comment on above: Performed By: #### 0 0071 #### [facility] [place] [address] [place] [address], [place] Urea nitrogen [Mass/Vol] 14 mg/dL Normal 7-25 [facility] Comment on above: Performed By: #### 0 0071 #### [facility] [place] [address] [facility] [place] [address], [facility] CBC W/DIFFon 07-18-2020 ABS IMM GRANS 0.0 10*3/uL Normal 0.0-0.2 [facility] Comment on above: Performed By: #### 0 0071 #### [facility] [place] [address] [facility] [address], [facility] ABS NEUTROPHILS 2.5 10*3/uL Normal 1.6-7.6 [facility] Comment on above: Performed By: #### 0 0071 #### [facility] [place] [address] [facility] [place] [address], [facility] Basophils (Bld) [#/Vol] 0.0 10*3/uL Normal 0.0-0.2 [facility] Comment on above: Performed By: #### 0 0071 #### [facility] [place] [address] [facility] [address], [facility] Basophils/100 WBC (Bld) 0.9 % Normal 0.0-1.0 [facility] Comment on above: Performed By: #### 0 0071 #### [facility] [place] [address] [facility] [address], [facility] Eosinophils (Bld) [#/Vol] 0.1 10*3/uL Normal 0.0-0.5 [facility] Comment on above: Performed By: #### 0 0071 #### [facility] [place] [address] [facility] [place] [address], [facility] Eosinophils/100 WBC (Bld) 1.2 % Normal 0.0-6.0 [facility] Comment on above: Performed By: #### 0 0071 #### [facility] [place] [address] [facility] [address], [facility] Erythrocyte distribution width (RBC) [Ratio] 14.8 % Normal 11.5-15.0 [facility] Comment on above: Performed By: #### 0 0071 #### [facility] [place] [address] [facility] Hematocrit (Bld) [Volume fraction] 47.6 % Normal 39.0-50.0 [facility] Comment on above: Performed By: #### [id number] #### [facility] [place] [address] [facility]. [address] Hemoglobin (Bld) [Mass/Vol] 14.5 g/dL Normal 13.0-17.0 [facility] Comment on above: Performed By: #### [id number] #### [facility] [place] [address] IMMATURE GRANS 0.2 % Normal 0.0-1.0 [facility] Comment on above: Performed By: #### 0 [id number] #### [facility] [place] [address] Lymphocytes (Bld) [#/Vol] 1.4 10*3/uL Normal 1.2-4.0 [facility] Comment on above: Performed By: #### 0 [id number] #### [facility] [place] [address] Lymphocytes/100 WBC (Bld) 32.9 % Normal 20.0-45.0 [facility] Comment on above: Performed By: #### 0 [id number] #### [facility] [place] [address] MCH (RBC) [Entitic mass] 23.2 pg Low 27.0-33.0 [facility] Comment on above: Performed By: #### 0 [id number] #### [facility] [place] [address] [facility] [address] MCHC (RBC) [Mass/Vol] 30.5 g/dL Low 32.0-35.0 [facility] Comment on above: Performed By: #### 0 [id number] #### [facility] [place] [address] MCV (RBC) [Entitic vol] 76.0 fL Low 82.0-98.0 [facility] Comment on above: Performed By: #### 0 [id number] #### [facility] [place] [address] [place] [address], [facility] Monocytes (Bld) [#/Vol] 0.3 10*3/uL Normal 0.1-1.0 [facility] Comment on above: Performed By: #### 0 [id number] #### [facility] [place] [address] MONOS 7.5 % Normal 5.0-12.0 [facility] Comment on above: Performed By: #### 0 [id number] #### [facility] [place] [address] Neutrophils/100 WBC (Bld) 57.3 % Normal 40.0-72.0 [facility] Comment on above: Performed By: #### 0 [id number] #### [facility] [place] [address] Nucleated RBC/100 WBC (Bld) [Ratio] 0 % Normal 0-0 [facility] Comment on above: Performed By: #### 0 [id number] #### [facility] [place] [address] PLAT CNT 222 10*3/uL Normal 150-400 [facility] Comment on above: Performed By: #### 0 [id number] #### [facility] [place] [address] [place] [address], [facility] RBC (Bld) [#/Vol] 6.26 10*6/uL High 4.20-5.70 [facility] Comment on above: Performed By: #### 0 [id number] #### [facility] [place] [address] [facility] [address] WBC (Bld) [#/Vol] 4.28 10*3/uL Normal 4.00-10.60 [facility] Comment on above: Performed By: #### 0 [id number] #### [facility] [place] [address] [facility] PROTHROMBIN TIMEon INR Coag (PPP) [Relative time] 0.95 {INR} Normal 0.91-1.16 [facility] Comment on above: Result Comment: ACCC [...] CHEST 1995;[id number]. Performed By: #### [id number], [id number] #### [facility] [place] [address] [facility] [place] [address], [facility] PT Coag (PPP) [Time] 12.7 s Normal 12.3-14.8 [facility] Comment on above: Result Comment: ALL RESULTS MUST BE INTERPRETED WITH RESPECT TO BLOOD DRAWING ARTIFACT OR DILUTION ERROR OF ANTICOAGULANT AT THE TIME OF SAMPLING. Performed By: #### [id number], [id number] #### [facility] [place] [address] Vital Signs Date Time Vital Sign Value Performing Clinician Facility 06-21-2024 10:23-0500 Heart rate 69 /min Danni Lue [facility] 06-21-2024 10:23-0500 SaO2% (BldA) [Mass fraction] 98 % Danni Lue [facility] 06-21-2024 10:23-0500 Diastolic blood pressure 88 mm[Hg] Danni Lue [facility] 06-21-2024 10:23-0500 Mean blood pressure 104 mm[Hg] Danni Lue [facility] 06-21-2024 10:23-0500 Systolic blood pressure 135 mm[Hg] Danni Lue [facility] 03-15-2024 14:28-0400 Body height 165.1 cm MD Paul Lopez Work Phone: [facility] 03-15-2024 14:28-0400 Body weight 73.93 kg MD Paul Lopez Work Phone: [facility] 01-11-2024 09:54-0400 Blood Pressure Location Danni Lue [facility] 01-11-2024 09:54-0400 Body temperature 98.6 [degF] Danni Lue [facility] 01-11-2024 09:54-0400 Diastolic blood pressure 72 mm[Hg] Danni Lue [facility] 01-11-2024 09:54-0400 Heart rate 57 /min Danni Lue [facility] 01-11-2024 09:54-0400 Respiratory rate 16 /min Danni Lue [facility] 01-11-2024 09:54-0400 Systolic blood pressure 119 mm[Hg] Danni Graham [facility] 10-12-2022 12:01-0400 Diastolic blood pressure 74 mm[Hg] Miguelito Chicas APRN.SLEEVE MACHINE TENDER Work Phone: [facility] 10-12-2022 12:01-0400 Heart rate 58 /min Miguelito Chicas RADIO INTERFERENCE INVESTIGATOR.SLEEVE MACHINE TENDER Work Phone: [facility] 10-12-2022 12:01-0400 Systolic blood pressure 117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 for PAP therapy, to continue to cover supplies. - Follow up in 2 months in the office. Recommend scheduling this appointment now to ensure the best time for you. Roosevelt Merlos PGY-4 Sleep fellow [facility] I have supervised and discussed the patient case with the Sleep Medicine Fellow including interviewing the patient in person and have updated the electronic medical record where necessary. I agree with the history, physical, impression and recommendations as documented. Gera Cardona DO, CBSM, ABSM Clinical Staff Sleep Medicine [facility] [place] [place] [address] [facility] [address] [place] [address] I have communicated my name and active licensure. The patient's identity and physical location were verified at the time of this visit. Either the patient or their legal financial representative has been informed of the risks and benefits of -- and alternatives to -- treatment through a remote evaluation and consents to proceed with the evaluation remotely. Interval history : Here for follow up for SHELBY follow up after starting PAP therapy. ; SLEEP APNEA Sleep apnea type : SHELBY, Most Recent Apnea-Hypopnea Index (AHI): 47.7 Treatment : PAP therapy DME: LMN-1 PAP History: Uses Bilevel PAP for 2 [...] or near accidents due to drowsy drivin [place] Sleepiness Scale 04/28/2022 Score Incomplete PROMIS CAT [...] which included preparing to see the patient, [id number] patient care, completing clinical documentation, obtaining and/or reviewing separately obtained history, counseling and educating the patient/family/caregiver, ordering medications, tests, or procedures, and communicating results to the patient/family/caregiver. documented in this encounter [facility] 11-17-2022 Note HNO ID: [id number] Author: Lorri Plascencia MD Service: ? Author Type: Physician Type: Progress Notes Filed: 11/17/2022 5:40 PM Note Text: Noé Jeffery 1965 [facility] [address] November 17, 2022 [facility] Report Virtual Virtual visit with Patient and family members Chief complaint: poor memory, forgetfulness I have communicated my name and active licensure. The patient's identity and physical location were verified at the time of this visit. Either the patient or their legal financial representative has been informed of the risks [...] that time. 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 [facility] 11-17-2022 Instructions Lorri Plascencia MD - [...] are our recommendations: - Cognitive therapy at [facility]. - Aricept 5 mg daily with breakfast - Namenda 5 twice a day with breakfast and dinner. - Maintain physically, socially and cognitively healthy lifestyle. - Schedule in person report in February 2023. Please schedule next visit with Lorri Plascencia MD, PhD or Kimo Pate NP in person in February -March 2023 To schedule testing and visits please call: [phone]. If you have new, unexpected concerns in between visits please call our office at [phone] ( you will be able to reach one of our nurses). [facility] fax [phone] Ways to keep your brain healthy: Follow [...] fish and fish high in mercury (swordfish, Kenyan sea martinez, orange roughy, ahi tuna, albacore [...] resources are: The Alzheimer's Association (web site: alz.org/ogilvie) available 24 hours a day, 7 days per week. Contact: Local: ; Toll free: [phone] Family Caregiver [place] (web site: Caregiver.org) MARLEEN Hawkins-- a secure online solution for quality information, support, and resources for family caregivers. Contact: Toll-free number: [phone] Alzheimers.gov - Find Alzheimer disease and related dementias information, resources, research and more. documented in this encounter [facility] 11-17-2022 History of Present illness Narrative Images from the original note were not included. Noé Jeffery 1965 [facility] [id number] November 17, 2022 [facility] Report Virtual Virtual visit with Patient and family members Chief complaint: poor memory, forgetfulness I have communicated my name and active licensure. The patient's identity and physical location were verified at the time of this visit. Either the patient or their legal financial representative has been informed of the risks [...] that time. 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 Bradycardia. PLAN: - [facility] referral - Cognitive therapy at [facility]. - Aricept 5 mg daily with [...] . Lorri Plascencia MD, PhD Geriatric Psychiatry [facility] Brain Health CC: 1. No primary care provider on file., (fax) None documented in this encounter [facility] 11-12-2022 Note HNO ID: [id number] Author: Nataly Lafleur Service: ? Author Type: ? Type: Progress Notes Filed: 11/12/2022 8:54 AM Note Text: 11/12 Forms signed and faxed back. Scanned in [employer]. [facility] 11-10-2022 Note HNO ID: [id number] Author: Ana Jaffe RN Service: ? Author Type: Registered Nurse Type: Progress Notes Filed: 11/10/2022 9:26 AM Note Text: Disability forms filled out, will give to the provider when back in office to review and sign. Ana Jaffe RN [facility] 11-09-2022 Note HNO ID: [id number] Author: Nataly Lafleur Service: ? Author Type: ? Type: Progress Notes Filed: 11/09/2022 10:14 AM Note Text: 11/09 Rec'd via fax [employer]ability [employer] form, scanned into [employer] and gave to Ana Dejesus For review. [facility] 10-12-2022 Note HNO ID: [id number] Author: Miguelito Chicas APRN.EFRAIN Service: ? Author Type: Nurse Practitioner Type: Progress Notes Filed: 10/12/2022 2:33 PM Note Text: [facility] BRAIN [facility] PROCEDURE FOR DIAGNOSTIC TESTING Noé Jeffery, [id number] October 12, 2022, 8:57 AM INFORMED CONSENT The risks, benefits and anticipated outcomes of the procedure, the risks and benefits of the alternatives to the procedure and the roles and tasks of the personnel to be involved were discussed with the patient, who consents to the procedure and agrees to proceed. I verify that I personally obtained Noé Jeffery's consent, Miguelito Chicas APRN.[facility] UNIVERSAL PROTOCOL / SAFETY CHECKLIST Procedure [...] Care Visit completed when applicable. Miguelito Chicas APRN.[facility] Pre-Procedure Labs: Component Latest Ref Rng AND Units 04/22/2022 Platelet Count 150 - 400 k/uL 223 Pertinent History: Prior LP or Epidural: NO Allergy to lidocaine: NO Allergy to betadine: NO Taking anticoagulants: NO Back problems or trauma: NO Sign in Communication: Completed Pre-LP vitals: 1039 122/86 HR 56 Procedure: Performed by: Miguelito Chicas APRN.[facility] Asst: Tanisha jeffers, MARCI / Ana Jaffe RN Relevant documentation, images, implants or special equipment present: N/A Patient positioned: left lateral decubitus Prepped and draped under aseptic conditions. Procedural site marked, verified by: Miguelito Chicas APRN.[facility] Site: L4-5 AUDIBLE TIME OUT: 1045 [...] BP 117/74 Pulse (!) 58 Miguelito Chicas APRN.SLEEVE MACHINE TENDER October 12, 2022 [facility] 10-12-2022 Nurse Note [facility] LUMBAR PUNCTURE NURSE DISCHARGE NOTE The patient [...] Tanisha Jeffers RN documented in this encounter [facility] 10-12-2022 Instructions Miguelito Chicas APRN.SLEEVE MACHINE TENDER - 10/12/2022 10:31 AM EDT Images from the original note were not included. [facility] Neurological [place] GOING HOME INSTRUCTIONS POST LP HEADACHE Prevention [...] as coffee or tea You can take [id number]-cre-[id number] Tylenol and/or Ibuprofen as directed INFECTION PREVENTION [...] from 8-5pm, please contact our office line [phone] and then hit 0 , please ask our chief administrative officer to page the provider who performed the spinal tap. -For nights or weekends, call or toll free and ask the wire drawing machine operator the page the Neurology resident on-call. 2. If your headache is unusually severe regardless of bedrest or lasts more than two days 3. If you develop a fever 4. If you notice inflammation, pus formation or clear drainage from the site of the needle puncture You may resume your usual activities after 48 hours. documented in this encounter [facility] 10-12-2022 History of Present illness Narrative [facility] PROCEDURE FOR DIAGNOSTIC TESTING Noé Jeffery, [id number] October 12, 2022, 8:57 AM INFORMED CONSENT [...] October 12, 2022 documented in this encounter [facility] 10-04-2022 Note HNO ID: [id number] Author: Leah Mckeon RN Service: ? Author Type: Registered Nurse Type: Progress Notes Filed: 10/04/2022 12:56 PM Note Text: Entered in error. Leah Mckeon RN [facility] 08-12-2022 Note HNO ID: [id number] Author: Leah Mckeon RN Service: ? Author [...] Abs Lymph 1.00 - 4.00 k/uL 1.45 [place]% % 6.2 Abs [place] <0.87 k/uL 0.31 Eosin% % 0.6 Abs Eosin <0.46 k/uL 0.03 Baso% % 0.8 Abs Baso <0.11 k/uL 0.04 Immature Gran % % 0.2 IMMATURE GRANS (ABS) <0.10 k/uL <0.03 NRBC /100 WBC 0.0 Absolute nRBC <0.01 k/uL <0.01 [employer]TYPE [employer] Care Coordination Interventions: none Leah Mckeon RN [facility] 08-12-2022 History of Present illness Narrative [...] Abs Lymph 1.00 - 4.00 k/uL 1.45 [place]% % 6.2 Abs [place] <0.87 k/uL 0.31 Eosin% % 0.6 Abs Eosin <0.46 k/uL 0.03 Baso% % 0.8 Abs Baso <0.11 k/uL 0.04 Immature Gran % % 0.2 IMMATURE GRANS (ABS) <0.10 k/uL <0.03 NRBC /100 WBC 0.0 Absolute nRBC <0.01 k/uL <0.01 DTYPE Auto Care Coordination Interventions: none Leah Mckeon RN documented in this encounter [facility] 08-11-2022 Note HNO ID: [id number] Author: Lorri Plascencia MD Service: ? Author Type: Physician Type: Progress Notes Filed: 08/11/2022 3:58 PM Note Text: Noé Jeffery [address] [place] [id number] August 11, 2022 Time: 2:35 PM [facility] OUTPATIENT VISIT TYPE New [...] that time. 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 [facility] 08-11-2022 Instructions Lorri Plascencia MD - [...] To schedule testing and visits please call: [phone]. If you have new, unexpected concerns in between visits please call our office at [phone] ( you will be able to reach one of our nurses). [facility] fax [phone] Ways to keep your brain healthy: Follow [...] fish and fish high in mercury (swordfish, Kenyan sea martinez, orange roughy, ahi tuna, albacore [...] resources are: The Alzheimer's Association (web site: alz.org/ogilvie) available 24 hours a day, 7 days per week. Contact: Local: ; Toll free: [phone] Family Caregiver [place] (web site: Caregiver.org) [employer]-- a secure online solution for quality information, support, and resources for family caregivers. Contact: Toll-free number: [phone] Alzheimers.gov - Find Alzheimer disease and related dementias information, resources, research and more. documented in this encounter [facility] 08-11-2022 History of Present illness Narrative Images from the original note were not included. Noé Jeffery [address] [place] [id number] August 11, 2022 Time: 2:35 PM [facility] OUTPATIENT VISIT TYPE New [...] that time. 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 Lorri Plascencia MD, PhD Geriatric Psychiatry [facility] Brain Health CC: 1. No primary care provider on file., (fax) None documented in this encounter [facility] 07-22-2022 Note HNO ID: [id number] Author: Lorri Plascencia MD Service: ? Author Type: Physician Type: Progress Notes Filed: 07/22/2022 11:10 AM Note Text: No show. Connection aborted after 15 min. of waiting online K[facility] 07-22-2022 History of Present illness Narrative No show. Connection aborted after 15 min. of waiting online [facility] documented in this encounter [facility] 05-07-2022 Miscellaneous Notes Radiology Service Progress Note [...] DATA: Not applicable SIGNED BY: Nicole Huffman shorthand teacher May 07, 2022 1:31 PM documented in this encounter [facility] 04-30-2022 Instructions Roosevelt Merlos MD - 04/30/2022 [...] will have a prescription sent to a [employer]) company - LMN-1 who will be calling you in the next 1-2 weeks or so. Please call them directly or us if you do not hear from them in this time frame. - You should be eligible for new supplies approximately every 3-6 months, depending on your insurance coverage. - If your mask doesn't fit well, call the [employer] company before 30 days are up to get a new mask without an additional charge. - Insurance requires regular usage and periodic office follow ups for PAP therapy, to continue to cover supplies. - Follow up in 2 months in the office. Recommend scheduling this appointment now to ensure the best time for you. CMS Requirements - Your insurance requires a [id number] follow up visit within a 31-90 day [...] for BiPAP supplies. documented in this encounter [facility] 04-30-2022 History of Present illness Narrative Images from the original note were not included. [facility] New Patient Evaluation PATIENT NAME: Noé Jeffery DATE OF SERVICE: April 30, 2022 CONSULTING PROVIDER: Narciso Guerra [address] [facility] [address] REASON FOR CONSULT: Narciso Guerra sends the [...] or near accidents due to drowsy drivin [place] Sleepiness Scale 04/28/2022 Score Incomplete PROMIS CAT [...] will have a prescription sent to a [employer] (durable medical equipment) company - LMN-1 who will be calling you in the next 1-2 weeks or so. Please call them directly or us if you do not hear from them in this time frame. - You should be eligible for new supplies approximately every 3-6 months, depending on your insurance coverage. - If your mask doesn't fit well, call the [employer] company before 30 days are up to get a new mask without an additional charge. - Insurance requires regular usage and periodic office follow ups for PAP therapy, to continue to cover supplies. - Follow up in 2 months in the office. Recommend scheduling this appointment now to ensure the best time for you. Roosevelt Merlos PGY-4 Sleep fellow [facility] I have supervised and discussed the patient case with the Sleep Medicine Fellow including interviewing the patient in person and have updated the electronic medical record where necessary. I agree with the history, physical, impression and recommendations as documented. Gera Cardona, , CBSM, ABSM Clinical Staff Sleep Medicine [facility] [address] Mail [address] [place] [address] documented in this encounter [facility] 04-26-2022 History of Present illness Narrative Sleep [...] Make AIRFIT N20 MaskTypeFull Face Mask SizeMedium Chin Sharp Used No Knowledge Program (KP): KP was not completed in epic by patient and accepted Study type: Split Study-Polysomnogram with CPAP titration Adverse Event: No (If yes create a new abstract) SERS Event: No Comments: Patient was advised to follow up with their ordering provider regarding test results [employer] April 25, 2022 Standing PSG Orders signed in the last 90 days None Future PSG Orders signed in the last 90 days Ordered Auth. provider POLYSOMNOGRAM (PSG) [[id number]] 04/22/22 Narciso Guerra MD Assoc. diagnoses: Cognitive [...] 8:46 PM 04/25/2022 documented in this encounter [facility] 04-22-2022 History of Present illness Narrative Head [facility] Neck [place] AUDIOLOGIC EVALUATION REPORT Name: Noé Jeffery [facility]#: [id number] Date of Service: 04/22/2022 Date of : 1965 Age: [age] year old Referred by: Narciso Guerra [address] [facility] [address] Referred for: Evaluation of the cause of disorder of hearing, tinnitus, or balance. Referral documented: In an order in [facility] Patient's major complaints: Noé reported he feels [...] evaluation of middle ear function. CPT code: 03259 RIGHT EAR: Tympanogram that was flat, with no identifiable peak and reduced TM mobility consistent with a conductive pathology (wax). LEFT EAR: Normal ME pressure and TM compliance (mobility). ACOUSTIC REFLEXES Description of procedure: This test is an objective measure of auditory and facial nerve pathways. CPT code: 42337, 32508 RIGHT EAR PROBE EAR: (ipsi right stimulus [...] bone conduction and speech recognition testing. CPT code:12029 RIGHT EAR: Hearing Sensitivity: Did not test. Word Recognition Score: Did not test. LEFT EAR: Hearing Sensitivity: Did not test. Word Recognition Score: Did not test. RECOMMENDATIONS Medical follow up for removal of bilateral impacted cerumen. Patient will see [facility] today. Hearing Test after #1. Juana Horta, ARIE/A Clinical Floor Assembler JIMENEZ Abbrev- iation Definition Degree of hearing sensitivity dB range WNL within normal limits WNL 0 - 20 SNHL sensorineural hearing loss Mild 20-40 CHL conductive hearing loss Moderate 40-55 MHL mixed hearing loss Moderately-Severe 55-70 WRS word recognition score Severe 70-90 ME middle ear Profound 90 + TM tympanic membrane documented in this encounter [facility] 04-22-2022 History of Present illness Narrative This note was created using Virtual Paper. Subjective Noé Jeffery is a 56 year [...] externa of left ear, unspecified type Plan: shttokjt-arukflfbp-furflncqnaqon e (CORTISPORIN) 3.5-10,000-1 mg/mL-unit/mL-% otic suspension Use as directed Follow up with PCP if symptoms worsen or do not improve Brenda Blanco APRN.EFRAIN April 22, 2022 documented in this encounter [facility] 04-22-2022 Instructions Brenda Blanco APRN.EFRAIN - 04/22/2022 [...] made for swimming. documented in this encounter [facility] 07-27-2020 Note MR#: [id number] [facility] Pt. Name: Noé Jeffery Admitted: 07/24/2020 Discharged: [...] Ga MD Date Trans: 07/27/2020 03:32 A/patricia DN_JN:[id number] cc: Paul Hoy, M.D. [address] [place] [phone] [facility] 07-24-2020 Note MR#: [id number] [facility] Pt. Name: Noé Jeffery Admitted: 07/21/2020 Discharged: [...] Mckenzie/Ayanna Ga MD Date Trans: 07/24/2020 10:00 A/mmo [id number] cc: Paul Lopez M.D. [address], [facility] [phone] [facility] Evaluation + Plan note No data available for this section [facility] Evaluation + Plan note Future Appointments Appointment Date:06/26/2024 12:00:00 PM Scheduled Provider: Location:[facility] Appointment Type:Surgery FT Appointment Date:07/11/2024 11:15:00 AM Scheduled Provider:Danni Graham MD Location:[facility] Appointment Type:URO Office Visit [facility] Evaluation + Plan note Future Appointments Appointment Date:07/11/2024 11:15:00 AM Scheduled Provider:Danni Graham MD Location:[facility] Appointment Type:URO Office Visit [facility] Evaluation note Diagnosis Bilateral impacted cerumen- Primary Impacted cerumen Elevated blood pressure reading without diagnosis of hypertension Acute otitis externa of left ear, unspecified type [facility] Diagnosis Bilateral impacted cerumen- Primary Impacted cerumen [facility] Diagnosis Sleep apnea, unspecified type- Primary Sleep hypopnea Other sleep disturbances [facility]* Diagnosis SHELBY (obstructive sleep apnea)- Primary Obstructive sleep apnea (adult) (pediatric) documented in this encounter [facility] note* Diagnosis Memory loss documented in this encounter [facility] note* Diagnosis Memory loss- Primary documented in this encounter [facility] note* Diagnosis Memory loss- Primary Encounter for lumbar puncture documented in this encounter [facility] note* Diagnosis Alzheimer's disease (HCC)- Primary Alzheimer's disease documented in this encounter [facility] note* Diagnosis Obstructive sleep apnea- Primary Obstructive sleep apnea (adult) (pediatric) Primary central sleep apnea Hyperlipidemia, unspecified hyperlipidemia type documented in this encounter [facility] note* Diagnosis Alzheimer's disease (HCC)- Primary Alzheimer's disease documented in this encounter [facility] note* Diagnosis Research study patient- Primary documented in this encounter [facility] note* Diagnosis Cognitive changes Other signs and symptoms involving cognition documented in this encounter [facility] note* Diagnosis Alzheimer's disease (HCC) Alzheimer's disease documented in this encounter [facility] note* Diagnosis Alzheimer's disease (HCC) Alzheimer's disease documented in this encounter [facility] noteNo assessment information availableGenesis [facility] Work Phone: Hospital Discharge instructions No data available for this section [facility] Progress note No data available for this section [facility] Summary Purpose Family History No Family History Records FoundNo Family History Records FoundNo Family History Records FoundNo Family History Records Found No data available for this section No data available for this section No Family History Records Found No data available for this section No Family History Records FoundNo Family History Records FoundNo Family History Records FoundNo Family History Records FoundNo Family History Records FoundNo Family History Records Found No data available for this section No Family History Records Found Advance Directives No [...] Referred By Naseem araujo Referred To Contact Diagnoses Sleep apnea, unspecified type Sleep hypopnea Procedures CONSULT TO SLEEP MEDICINE - ADULT OFFICE/OUTPATIENT [facility] 60-74 MINUTES Narciso Geurra MD [address] [place] [address] Referral ID Status Reason Start Date Expiration Date Visits Requested Visits Authorized [id number] Authorized PCP Requested Referral 04/28/2022 04/28/2023 1 1 Specialty Diagnoses / Procedures Referred By Naseem t Referred To Contact [facility] Diagnoses Alzheimer's disease (HCC) Procedures CONSULT TO SPEECH THERAPY OFFICE/OUTPATIENT [facility] 60-74 MINUTES Lorri Plascencia MD [address] [place] [address] [facility] [address] [place] [address] Referral ID Status Reason Start Date Expiration Date Visits Requested Visits Authorized [id number] Pending Review Auto-Generat ed Referral 11/17/2022 11/17/2023 1 1 Specialty Diagnoses / Procedures Referred By Naseem araujo Referred To Contact MR IMAGING Diagnoses Cognitive changes Procedures MRI 3D POST PROCESSING 3D RENDERING W/INTERP&POSTPROC [place] [address] [place] [address] Mr [facility] [place] [address] Referral ID Status Reason Start Date Expiration Date V isits Requested Visits Authorized [id number] Closed Auto-Generate d Referral 04/22/2022 05/22/2023 1 1 Specialty Diagnoses / Procedures Referred By Naseem araujo Referred To Contact MR IMAGING Diagnoses Cognitive changes Procedures MRI BRAIN WO IVCON MRI BRAIN BRAIN STEM W/O CONTRAST MATERIAL Narciso Guerra MD [address] [place] [address] Mr Imaging [place] [address] Referral ID Status Reason Start Date Expiration Date V isits Requested Visits Authorized [id number] Closed Auto-Generate d Referral 04/22/2022 06/06/2022 1 [...] section and content) DATE CREATED AUTHOR 04/15/2021 [facility] DATE CREATED AUTHOR AUTHOR'S ORGANIZ ATION 05/09/2022 [facility] DATE CREATED AUTHOR AUTHOR'S ORGANIZ ATION 10/28/2022 [facility] DATE CREATED AUTHOR AUTHOR'S ORGANIZ ATION 05/24/2023 [facility] DATE CREATED AUTHOR AUTHOR'S ORGANIZ ATION 06/17/2024 [facility] DATE CREATED AUTHOR AUTHOR'S ORGANIZ ATION 06/22/2024 [facility] DATE CREATED AUTHOR AUTHOR'S ORGANIZ ATION 06/28/2024 [facility] DATE CREATED AUTHOR AUTHOR'S ORGANIZ ATION 07/01/2024 [facility] Source Comments (unrecognize d section and content) In the event this informatio n is protected by the Federal Confidentiality of Alcohol and Drug Abuse Patient Records regulations: The Federal rules restrict any use of the information to criminally investigate or prosecute any alcohol or drug abuse patient.[facility] the event this information is protected by the Federal Confidentiality of Alcohol and Drug Abuse Patient Records regulations: The Federal rules restrict any use of the information to criminally investigate or prosecute any alcohol or drug abuse patient.[facility] the event this information is protected by the Federal Confidentiality of Alcohol and Drug Abuse Patient Records regulations: The Federal rules restrict any use of the information to criminally investigate or prosecute any alcohol or drug abuse patient.[facility] the event this information is protected by the Federal Confidentiality of Alcohol and Drug Abuse Patient Records regulations: The Federal rules restrict any use of the information to criminally investigate or prosecute any alcohol or drug abuse patient.[facility] the event this information is protected by the Federal Confidentiality of Alcohol and Drug Abuse Patient Records regulations: The Federal rules restrict any use of the information to criminally investigate or prosecute any alcohol or drug abuse patient.[facility] the event this information is protected by the Federal Confidentiality of Alcohol and Drug Abuse Patient Records regulations: The Federal rules restrict any use of the information to criminally investigate or prosecute any alcohol or drug abuse patient.[facility] the event this information is protected by the Federal Confidentiality of Alcohol and Drug Abuse Patient Records regulations: The Federal rules restrict any use of the information to criminally investigate or prosecute any alcohol or drug abuse patient.[facility] the event this information is protected by the Federal Confidentiality of Alcohol and Drug Abuse Patient Records regulations: The Federal rules restrict any use of the information to criminally investigate or prosecute any alcohol or drug abuse patient.[facility] the event this information is protected by the Federal Confidentiality of Alcohol and Drug Abuse Patient Records regulations: The Federal rules restrict any use of the information to criminally investigate or prosecute any alcohol or drug abuse patient.[facility] the event this information is protected by the Federal Confidentiality of Alcohol and Drug Abuse Patient Records regulations: The Federal rules restrict any use of the information to criminally investigate or prosecute any alcohol or drug abuse patient.[facility] the event this information is protected by the Federal Confidentiality of Alcohol and Drug Abuse Patient Records regulations: The Federal rules restrict any use of the information to criminally investigate or prosecute any alcohol or drug abuse patient.[facility] the event this information is protected by the Federal Confidentiality of Alcohol and Drug Abuse Patient Records regulations: The Federal rules restrict any use of the information to criminally investigate or prosecute any alcohol or drug abuse patient.[facility] the event this information is protected by the Federal Confidentiality of Alcohol and Drug Abuse Patient Records regulations: The Federal rules restrict any use of the information to criminally investigate or prosecute any alcohol or drug abuse patient.[facility] the event this information is protected by the Federal Confidentiality of Alcohol and Drug Abuse Patient Records regulations: The Federal rules restrict any use of the information to criminally investigate or prosecute any alcohol or drug abuse patient.[facility] the event this information is protected by the Federal Confidentiality of Alcohol and Drug Abuse Patient Records regulations: The Federal rules restrict any use of the information to criminally investigate or prosecute any alcohol or drug abuse patient.[facility] the event this information is protected by the Federal Confidentiality of Alcohol and Drug Abuse Patient Records regulations: The Federal rules restrict any use of the information to criminally investigate or prosecute any alcohol or drug abuse patient.[facility] the event this information is protected by the Federal Confidentiality of Alcohol and Drug Abuse Patient Records regulations: The Federal rules restrict any use of the information to criminally investigate or prosecute any alcohol or drug abuse patient.[facility] the event this information is protected by the Federal Confidentiality of Alcohol and Drug Abuse Patient Records regulations: The Federal rules restrict any use of the information to criminally investigate or prosecute any alcohol or drug abuse patient.[facility] the event this information is protected by the Federal Confidentiality of Alcohol and Drug Abuse Patient Records regulations: The Federal rules restrict any use of the information to criminally investigate or prosecute any alcohol or drug abuse patient.[facility] the event this information is protected by the Federal Confidentiality of Alcohol and Drug Abuse Patient Records regulations: The Federal rules restrict any use of the information to criminally investigate or prosecute any alcohol or drug abuse patient.[facility] the event this information is protected by the Federal Confidentiality of Alcohol and Drug Abuse Patient Records regulations: The Federal rules restrict any use of the information to criminally investigate or prosecute any alcohol or drug abuse patient.[facility] the event this information is protected by the Federal Confidentiality of Alcohol and Drug Abuse Patient Records regulations: The Federal rules restrict any use of the information to criminally investigate or prosecute any alcohol or drug abuse patient.[facility] the event this information is protected by the Federal Confidentiality of Alcohol and Drug Abuse Patient Records regulations: The Federal rules restrict any use of the information to criminally investigate or prosecute any alcohol or drug abuse patient.[facility] the event this information is protected by the Federal Confidentiality of Alcohol and Drug Abuse Patient Records regulations: The Federal rules restrict any use of the information to criminally investigate or prosecute any alcohol or drug abuse patient.[facility] the event this information is protected by the Federal Confidentiality of Alcohol and Drug Abuse Patient Records regulations: The Federal rules restrict any use of the information to criminally investigate or prosecute any alcohol or drug abuse patient.[facility] the event this information is protected by the Federal Confidentiality of Alcohol and Drug Abuse Patient Records regulations: The Federal rules restrict any use of the information to criminally investigate or prosecute any alcohol or drug abuse patient.[facility] Reason for Visit (unrecogniz ed section and content) Reason Comments Earwax Bilateral ear Specialty Diagnoses / Procedures Referred By Davidac t Referred To Contact Diagnoses Bilateral hearing loss, unspecified hearing loss type Procedures HEARING TEST/AUDIOGRAM COMPRE AUDIOMETRY THRESHOLD EVAL SP RECOGNIJ Narciso Guerra MD [address] [place] [address] [facility] [address] [place] [address] Referral ID Status Reason Start Date Expiration Date V isits Requested Visits Authorized [id number] Closed Auto-Generate d Referral 04/22/2022 07/21/2022 1 1 Reason Comments New Patient Evaluation Had sleep study d one. Specialty Diagnoses / Procedures Referred By Naseem t Referred To Contact Diagnoses Sleep apnea, unspecified type Sleep hypopnea Procedures CONSULT TO SLEEP MEDICINE - ADULT OFFICE/OUTPATIENT [facility] 60-74 MINUTES Narciso Guerra MD [address] [place] [address] Referral ID Status Reason Start Date Expiration Date V isits Requested Visits Authorized [id number] Closed PCP Requested Referral 04/28/2022 04/28/2023 1 1 Reason Comments Memory Loss Specialty Diagnoses / Procedures Referred By Naseem t Referred To Contact Neurology Diagnoses Memory loss Procedures CONSULT TO NEUROLOGY OFFICE/OUTPATIENT [facility] 60-74 MINUTES Narciso Guerra MD [address] [place] [address] Referral ID Status Reason Start Date Expiration Date V isits Requested Visits Authorized [id number] Closed PCP Requested Referral 06/22/2022 06/22/2023 1 1 Reason Comments Lumbar Puncture Reason Comments Memory Loss Reason Comments Sleep Apnea Reason Comments PAP Rx Faxed DME: [facility] Reason Comments Returning Patient's Call Reason Comments Refill Request Reason Comments PAP Therapy Follow Up 12/18/22 - 01/16/23 L AST FOUND DL FROM DME Reason Comments Research CAD (IRB 19-366) I nterest Reason Comments Research [facility] (IRB 19-366) Specialty Diagnoses / Procedures Referred By Contac t Referred To Contact MR IMAGING Diagnoses Cognitive changes Procedures MRI BRAIN WO IVCON MRI BRAIN BRAIN STEM W/O CONTRAST MATERIAL Narciso Guerra MD [address] [facility] [place] [address] [place] [address] Referral ID Status Reason Start Date Expiration Date V isits Requested Visits Authorized [id number] Closed Auto-Generate d Referral 04/22/2022 06/06/2022 1 [...] BE BASED ON THE PRIMARY CLINICAL RECORDS. [facility]. provides no warranty or guarantee of the accuracy or completeness of information in this document.
--- NOTE | 2024-07-02 13:42 | CT_ITS ---
The [address] [address] Patient Name: ESTELLA JEFFERY MRN: [id number] date: 1965 Sex: M Assigned Patient Location: ER Current Patient Location: .[facility] Accession/Order Number: [id number] Exam Date: 07/02/2024 14:10 Report Date: 07/02/2024 17:05 At the request of: LYDIA DIXON Procedure: CT head/brain wo con CT head without contrast, 07/02/2024. HISTORY: Confusion. COMPARISON: CT head, 06/25/2024. TECHNIQUE: Noncontrast axial CT images obtained through the head. Reconstructions obtained in the sagittal and coronal planes. Dose reduction techniques were achieved by using automated exposure control and/or adjustment of mA and/or kV according to patient size and/or use of iterative reconstruction technique. FINDINGS: The paranasal sinuses are clear. Middle ear cavities and mastoid air cells are clear. The skull base is intact. No skull lesion. Orbital contents unremarkable. Jd Edwards Consultant spaces normal. Ventricles are normal in size. There is no hydrocephalus. No extra-axial fluid collection. No mass effect. No shift of midline structures. 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 No acute hemorrhage. No edema. Ramachandran matter and white matter differentiation is intact. CT/CT head/brain wo con IMPRESSION: 1. Stable CT of the head. No acute findings. 2. Brain atrophy is stable. 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 No hydrocephalus. Electronically authenticated by: MARY MCLAIN Date: 07/02/2024 17:05
--- NOTE | 2024-07-02 13:42 | ECG_ITS ---
The [facility] Test Date: 2024-07-02 Pat Name: ESTELLA JEFFERY Department: Room: - Gender: Male Manager Applied: : 1965 Requested By: [id number] Order Number: [id number] Reading MD: PAUL LOPEZ Measurements Intervals [place] Rate: 52 P: 156 TN: 338 QRS: 42 QRSD: 88 T: 35 QT: 454 QTc: 435 Interpretive Statements 1200 Atrial rhythm 2231 First degree AV block [address] depression 8102 Low QRS voltage in chest leads 9150 abnormal ECG Compared to ECG 06/25/2024 18:23:52 First degree AV block now present ST (T wave) deviation now present Sinus rhythm no longer present Electronically Signed On 07-03-2024 5:54:13 EST by PAUL LOPEZ
--- NOTE | 2024-07-02 13:42 | XR_ITS ---
The [address] [address] Patient Name: ESTELLA JEFFERY MRN: [id number] date: 1965 Sex: M Assigned Patient Location: ER Current Patient Location: ER Accession/Order Number: [id number] Exam Date: 07/02/2024 14:10 Report Date: 07/02/2024 14:47 At the request of: LYDIA DIXON Procedure: XR chest 1V EXAMINATION: XR chest 1V HISTORY: Altered mental status COMPARISON: 06/09/2024. TECHNIQUE: AP portable FINDINGS: LUNGS: No significant pulmonary parenchymal abnormalities. Low lung volumes VASCULATURE: No increased pulmonary vasculature. PLEURA: No pneumothorax, effusion, or pleural thickening. CARDIAC: No cardiomegaly or cardiac silhouette abnormality. MEDIASTINUM: No visible mass or adenopathy. BONES: No fracture or visible bone lesion. OTHER: Negative. XR/XR chest 1V IMPRESSION: Low volume exam, clear lungs Electronically authenticated by: SHANTA CARRENO Date: 07/02/2024 14:47
[2024-07-02 14:18] LABS: Basophils Percent Auto 0.4 % (0.2-2.0); Eosinophils Percent Auto 0.6 % (0.9-7.0); Hemoglobin 12.6 g/dL (14.0-18.0); Immature Granulocytes Abs Auto 0.02 10^3/uL (0.00-0.03); Immature Granulocytes Pct Auto 0.4 % (0.0-0.5); Lymphocytes Absolute Auto 1.4 10^3/uL (1.2-3.8); Lymphocytes Percent Auto 27.6 % (20.5-60.0); Mean Corpuscular HGB Conc 31.5 g/dL (29.9-35.2); Mean Corpuscular Hemoglobin 24.5 pg (25.9-34.0); Mean Corpuscular Volume 77.8 fL (80.0-94.0); Mean Platelet Volume 9.6 fL (9.5-13.5); Monocytes Absolute Auto 0.3 10^3/uL (0.3-0.8); Monocytes Percent Auto 6.9 % (1.7-12.0); Neutrophils Absolute Auto 3.2 10^3/uL (1.4-6.5); Neutrophils Percent Auto 64.1 % (43.0-75.0); Platelet Count 159 10^3/uL (150-450); Red Blood Count 5.14 10^6/uL (4.70-6.10); Red Cell Distribution Width 14.5 % (11.0-15.0); White Blood Count 4.9 10^3/uL (4.0-11.0)
[2024-07-02 14:35] LABS: Anion Gap 10.1; BUN Creatinine Ratio 18.9; Calcium 8.5 mg/dL (8.5-10.1); Carbon Dioxide 31.3 mmol/L (21.0-32.0); Chloride 107 mmol/L (98-107); Estimated GFR (African America >60 (>=60 mL/min/1.73m^2); Estimated GFR (Non-African Ame >60 (>=60 mL/min/1.73m^2); Glucose 104 mg/dL (74-106); Potassium 4.4 mmol/L (3.5-5.1); Sodium 144 mmol/L (136-145)
--- NOTE | 2024-07-02 14:48 | ED.GENADUL1 ---
HPI HPI - General Adult General Chief complaint: Altered Mental Status Stated complaint: CONFUSION, FALL 3 WEEKS AGO Time Seen by Provider: 07/02/24 12:54 Source: family Mode of arrival: walk-in History of Present Illness HPI narrative: 58-year-old male presents with family to ED for evaluation of his continued unusual behavior. This is an ongoing issue and they took him out of [facility] today to have him evaluated. He is no longer a resident there. Family is concerned about his head. They are concerned about a cyst that was found on a CAT scan and they are looking to have an MRI performed. He is unable to give any history. The patient's sister and accompany him and give all of the history. Related Data Home Medications ?Medication ?Instructions ?Recorded ?Confirmed benztropine 1 mg tablet 1 mg PO BID 07/02/24 07/02/24 brexpiprazole 2 mg tablet (Rexulti) 2 mg PO DAILY 07/02/24 07/02/24 donepezil 10 mg tablet 10 mg PO .QHS 07/02/24 07/02/24 fluoxetine 20 mg capsule 20 mg PO DAILY 07/02/24 07/02/24 haloperidol 5 mg tablet 5 mg PO Q6H PRN agitation 07/02/24 07/02/24 loperamide 2 mg capsule 2 mg PO Q6H PRN loose stool 07/02/24 07/02/24 lorazepam 1 mg tablet (Ativan) 1 mg buccal Q6H PRN anxiety 07/02/24 07/02/24 omeprazole 20 mg capsule,delayed 20 mg PO DAILY 07/02/24 07/02/24 release Allergies Allergy/AdvReac Type Severity Reaction Status Date / Time No Known Drug Allergies Allergy Verified 07/02/24 12:43 Opioid HPI Opioid Management Most Recent Opioid Data: Ur Phencyclidine Scrn Negative (NEGATIVE) 06/25/24 18:35 06/25/24 Review of Systems ROS Narrative Not obtainable, dementia PFSH PFSH Medical History (Updated 07/02/24 @ 16:28 by Clint Briscoe MD) Altered mental status ?R41.82 - Altered mental status, unspecified (ICD-10) GERD (gastroesophageal reflux disease) ?K21.9 - Gastro-esophageal reflux disease without esophagitis (ICD-10) Social History Little interest or pleasure in doing things: not at all Feeling down, depressed, or hopeless: not at all Exam Narrative Exam Narrative: Nurses note and vital signs reviewed and patient is not hypoxic. General: The patient appears well and in no apparent distress. Patient is resting comfortably on cart. Skin: Warm, dry, no pallor noted. There is no rash noted. Head: Normocephalic, atraumatic Eye: Normal conjunctiva, no drainage, EOMI. PERRL Ears, Nose, Mouth, and Throat: oral mucosa is moist. Nares patent. Cardiovascular: Regular Rate and Rhythm Respiratory: Patient is in no distress, no accessory muscle use, lungs are clear to auscultation, no wheezing, rales or rhonchi Back: non-tender, no CVA tenderness bilaterally to percussion. GI: Soft and nontender Musculoskeletal: The patient has no evidence of calf tenderness, no pitting edema, symmetrical pulses noted bilaterally Neurological: Awake and alert. He is able to tell me the names of his family members that accompany him. He is able to stand and walk with assistance. He moves all 4 extremities well. Psychiatric: Not uncooperative Constitutional Vital Signs, click to edit/add: Last Vital Signs Temp 97.5 F L 07/02/24 12:35 Pulse 60 07/02/24 12:35 Resp 16 07/02/24 12:35 BP 122/66 07/02/24 12:35 Pulse Ox 100 07/02/24 12:35 O2 Del Method Room Air 07/02/24 12:35 Course Vital Signs Vital signs: Vital Signs Temperature 97.5 F L 07/02/24 12:35 Pulse Rate 60 07/02/24 12:35 Respiratory Rate 16 07/02/24 12:35 Blood Pressure 122/66 07/02/24 12:35 Pulse Oximetry 100 07/02/24 12:35 Oxygen Delivery Method Room Air 07/02/24 12:35 Temperature 97.5 F L 07/02/24 12:35 Pulse Rate 60 07/02/24 12:35 Respiratory Rate 16 07/02/24 12:35 Blood Pressure 122/66 07/02/24 12:35 Pulse Oximetry 100 07/02/24 12:35 Oxygen Delivery Method Room Air 07/02/24 12:35 Medical Decision Making MDM Narrative Medical decision making narrative: His workup here including CT brain is negative. Blood work is nonspecific and he has no evidence of a UTI. I have spoken to his PCP Dr. Cruz and the patient will be admitted. Findings are discussed with the family. Differential Diagnosis Differential Diagnosis: Dementia, UTI, altered mental status Lab Data Lab results reviewed: Yes I reviewed the patient's lab results Labs: Lab Results 07/02/24 Range/Units 14:07 WBC 4.9 (4.0-11.0) 10^3/uL RBC 5.14 (4.70-6.10) 10^6/uL Hgb 12.6 L (14.0-18.0) g/dL Hct 40.0 L (42.0-54.0) % MCV 77.8 L (80.0-94.0) fL MCH 24.5 L (25.9-34.0) pg MCHC 31.5 (29.9-35.2) g/dL RDW 14.5 (11.0-15.0) % Plt Count 159 (150-450) 10^3/uL MPV 9.6 (9.5-13.5) fL Neut % (Auto) 64.1 (43.0-75.0) % Lymph % (Auto) 27.6 (20.5-60.0) % [place] % (Auto) 6.9 (1.7-12.0) % Eos % (Auto) 0.6 L (0.9-7.0) % Baso % (Auto) 0.4 (0.2-2.0) % Neut # (Auto) 3.2 (1.4-6.5) 10^3/uL Lymph # (Auto) 1.4 (1.2-3.8) 10^3/uL [place] # (Auto) 0.3 (0.3-0.8) 10^3/uL Eos # (Auto) 0.0 (0.0-0.7) 10^3/uL Baso # (Auto) 0.0 (0.0-0.1) 10^3/uL Abs Immat Gran (auto) 0.02 (0.00-0.03) 10^3/uL Imm/Tot Granulo (auto) 0.4 (0.0-0.5) % Sodium 144 (136-145) mmol/L Potassium 4.4 (3.5-5.1) mmol/L Chloride 107 (98-107) mmol/L Carbon Dioxide 31.3 (21.0-32.0) mmol/L Anion Gap 10.1 BUN 18.0 (7.0-18.0) mg/dL Creatinine 0.95 (0.70-1.30) mg/dL Est GFR ( Amer) >60 (>=60 mL/min/1.73m^2) Est GFR (Non-Af Amer) >60 (>=60 mL/min/1.73m^2) BUN/Creatinine Ratio 18.9 Glucose 104 (74-106) mg/dL Calcium 8.5 (8.5-10.1) mg/dL Imaging Data CT scan - head: Radiologist's impression: ITS Impressions Chest X-Ray 07/02/24 13:42 IMPRESSION: Low volume exam, clear lungs Electronically authenticated by: SHANTA CARRENO Date: 07/02/2024 14:[address] 07/02/24 13:42 IMPRESSION: 1. Stable CT of the head. No acute findings. 2. Brain atrophy is stable. 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 No hydrocephalus. Electronically authenticated by: MARY MCLAIN Date: 07/02/2024 14:45 ECG Data Attestation: I personally reviewed and interpreted this ECG as follows: (EKG on my interpretation shows baseline artifact and sinus rhythm) Discharge Plan Discharge Chief Complaint: Altered Mental Status Clinical Impression: Altered mental status Patient Disposition: Admitted as Observation Time of Disposition Decision: 16:28 Condition: Fair
[2024-07-02] MEDS: 0.9 % SODIUM CHLORIDE 1,000 ML 100 ML IV (15:16)
[2024-07-02] MEDS: LORAZEPAM 2 MG/ML VIAL 1 MG IV ×2 (15:32→16:08)
[2024-07-02 17:17] LABS: Alanine Aminotransferase 20 U/L (16-63); Albumin Globulin Ratio 1.1; Albumin Level 3.4 g/dL (3.4-5.0); Alkaline Phosphatase 71 U/L (46-116); Ammonia <10 umol/L (11-32); Aspartate Amino Transferase 15 U/L (15-37); Bilirubin Direct 0.1 mg/dL (0.0-0.2); Bilirubin Total 0.5 mg/dL (0.2-1.0); Globulin 3.1 g/dL; Magnesium 2.1 mg/dL (1.8-2.4); Total Protein 6.5 g/dL (6.4-8.2)
[2024-07-02 17:24] LABS: Lactate/Lactic Acid 0.7 mmol/L (0.4-2.0)
--- OUTSIDE RECORDS SUMMARY | 2024-07-02 17:30 | XMS_ITS | CCD ---
Author Organization [facility] Care Team Providers Care Airfield Operations Specialist Name Role Phone NAYA IZAGUIRRE Admitting Unavailable PAUL LOPEZ Primary Care Unavailable PAUL LOPEZ Referring Unavailable NAYA IZAGUIRRE Attending Unavailable IA Procedure Practitioner Unavailab NAYA Wolf Surgeon Unavailable PAUL LOPEZ Primary Care Unavailable SELF, REFERRED Referring Unavailable WILLAM IZAGUIRREIN Attending Unavailable ZINA JIASULTANAIN Admitting Unavailable IA Procedure Practitioner Unavailab WILLAM WolfIN Surgeon Unavailable [...] Care Physician MD Danni Graham Attending Provider MD Paul Lopez Primary Care Provider [phone] Danni Graham Admitting Unavailable Danni Graham Attending [...] Date of Onset Reaction(s) Facility (1 source) 82914,00 Drug allergy (disorder) 9 [facility] Repository (1 source) No Known Medication Allergies; Translations: [No Known Medication Allergies] Propensity to adverse reactions (disorder) [facility] Repository Medications Current Medications Medication [...] / neomycin 3.5 mg/ml / polymyxin b 74278 unt/ml otic suspension (3 sources) Aminoglycoside Antibacterial, [...] hydrochloride 5 mg oral tablet (14 sources) N-yskdci-A-aspartate Receptor Antagonist Start: 11-18-19 23 take 1 [...] 06-24-2024 Acetaminophen [Mass/Vol] 3.3 ug/mL Low 10.0-30.0 [facility] Comment on above: Result Comment: Refe rence ranges are for therapeutic limits. Performed By: #### C OWEN BUTLER, 5643-2, 3298-7, 4024-6, THYR #### [facility] ([id number]) [address] [place] [address] 56164 CBC AND AUTO DIFFon 06-24-19 25 ABSOLUTE BASOPHIL 0.1 X10E9/L Normal 0.0-0.2 [facility] Comment on above: Performed By: #### C OWEN BUTLER, 5643-2, 3298-7, 40246, THYR #### [facility] ([id number]) [address] [place] [address] 39574 ABSOLUTE NEUTROPHIL 3.1 X10E9/L Normal 1.5-6.6 [facility] Comment on above: Performed By: #### C OWEN BUTLER, 5643-2, 3298-7, 4024-6, THYR #### [facility] ([id number]) [address] [place] [address] 21616 Basophils/100 WBC (Bld) 1.0 % Normal [facility] Comment on above: Performed By: #### C CARRIE, CMP, 5643-2, 3298-7, 4024-6, THYR #### [facility] ([id number]) [address] [place] [address] 55531 Eosinophils (Bld) [#/Vol] 0.1 10*3/uL Normal 0.0-0.4 [facility] Comment on above: Performed By: #### C CARRIE, CMP, 5643-2, 3298-7, 4024-6, THYR #### [facility] ([id number]) [address] [place] [address] 44567 Eosinophils/100 WBC (Bld) 1.4 % Normal [facility] Comment on above: Performed By: #### C CARRIE [facility], 5643-2, 3298-7, 4024-6, THYR #### [facility] ([id number]) [address] [place] [address] 08086 Erythrocyte distribution width (RBC) [Ratio] 15.6 % High 11.5-15.0 [facility] Comment on above: Performed By: #### C CARRIE [facility], 43-2, 3298-7, 4024-6, THYR #### [facility] ([id number]) [address] [place] [address] 30214 Hematocrit (Bld) [Volume fraction] 42.7 % Normal 39-49 [facility] Comment on above: Performed By: #### C CARRIE [facility], 43-2, 3298-7, 4024-6, THYR #### [facility] ([id number]) [address] [place] [address] 38117 Hemoglobin (Bld) [Mass/Vol] 14.3 g/dL Normal 13.0-17.0 [facility] Comment on above: Performed By: #### C CARRIE, [facility], 5643-2, 3298-7, 4024-6, THYR #### [facility] ([id number]) [address] [place] [address] 91357 Lymphocytes (Bld) [#/Vol] 1.8 10*3/uL Normal 1.0-3.5 [facility] Comment on above: Performed By: #### C CARRIE, [facility], 5643-2, 3298-7, 4024-6, THYR #### [facility] ([id number]) [address] [place] [address] 22313 Lymphocytes/100 WBC (Bld) 33.3 % Normal [facility] Comment on above: Performed By: #### C OWEN BUTLER, 5643-2, 3298-7, 4024-6, THYR #### [facility] ([id number]) [address] [place] [address] 65223 MCH (RBC) [Entitic mass] 24.7 pg Low 27-34 [facility] Comment on above: Performed By: #### C OWEN BUTLER, 56-2, 3298-7, 4024-6, THYR #### [facility] ([id number]) [address] [place] [address] 14979 MCHC (RBC) [Mass/Vol] 33.4 g/dL Normal 32-36 [facility] Comment on above: Performed By: #### Emily BUTLER CMP, 43-2, 3298-7, 4024-6, THYR #### [facility] ([id number]) [address] [place] [address] 46864 MCV (RBC) [Entitic vol] 74 fL Low 80-100 [facility] Comment on above: Performed By: #### C OWEN BUTLER, 5643-2, 3298-7, 4024-6, THYR #### [facility] ([id number]) [address] [place] [address] 31975 Monocytes (Bld) [#/Vol] 0.4 10*3/uL Normal 0-0.9 [facility] Comment on above: Performed By: #### Emily BUTLER CMP, 5643-2, 3298-7, 4024-6, THYR #### [facility] ([id number]) [address] [place] [address] 55064 Monocytes/100 WBC (Bld) 6.9 % Normal [facility] Comment on above: Performed By: #### C BCA, CMP, 5643-2, 3298-7, 4024-6, THYR #### [facility] ([id number]) [address] [place] [address] 03257 Neutrophils/100 WBC (Bld) 57.4 % Normal [facility] Comment on above: Performed By: #### Emily BCA, CMP, 5643-2, 3298-7, 4024-6, THYR #### [facility] ([id number]) [address] [place] [address] 84169 Platelet mean volume (Bld) [Entitic vol] 7.8 fL Normal 7-12 [facility] Comment on above: Performed By: #### Emily BUTLER, CMP, 5643-2, 3298-7, 4024-6, THYR #### [facility] ([id number]) [address] [place] [address] 30536 Platelets (Bld) [#/Vol] 174 10*3/uL Normal 150-450 [facility] Comment on above: Performed By: #### Emily BUTLER, CMP, 5643-2, 3298-7, 4024-6, THYR #### [facility] ([id number]) [address] [place] [address] 62544 RBC COUNT 5.77 X10E12/L High 4.10-5.70 [facility] Comment on above: Performed By: #### Emily BCA, CMP, 5643-2, 3298-7, 4024-6, THYR #### [facility] ([id number]) [address] [place] [address] 51754 WBC (Bld) [#/Vol] 5.4 10*3/uL Normal 4.0-11.0 [facility] Comment on above: Performed By: #### Emily BCA, CMP, 5643-2, 3298-7, 4024-6, THYR #### [facility] ([id number]) [address] [place] [address] 05012 COMPREHENSIVE METABOLIC PANE Jatin 06-24-2024 Albumin [Mass/Vol] 4.0 g/dL Normal 3.2-5.3 [facility] Comment on above: Performed By: #### C BCA, CMP, 5643-2, 3298-7, 4024-6, THYR #### [facility] ([id number]) [address] [place] [address] 52225 ALP [Catalytic activity/Vol] 65 U/L Normal 39-130 [facility] Comment on above: Performed By: #### C BCA, CMP, 5643-2, 3298-7, 4024-6, THYR #### [facility] ([id number]) [address] [place] [address] 10945 ALT [Catalytic activity/Vol] 17 U/L Normal 0-40 [facility] Comment on above: Performed By: #### C BCA, CMP, 5643-2, 3298-7, 4024-6, THYR #### [facility] ([id number]) [address] [place] [address] 14579 Anion gap [Moles/Vol] 8 mmol/L Normal 5-15 [facility] Comment on above: Performed By: #### C BCA, CMP, 5643-2, 3298-7, 4024-6, THYR #### [facility] ([id number]) [address] [place] [address] 72373 AST [Catalytic activity/Vol] 17 U/L Normal 0-41 [facility] Comment on above: Performed By: #### C BCA, CMP, 5643-2, 3298-7, 4024-6, THYR #### [facility] ([id number]) [address] [place] [address] 16479 Bilirubin [Mass/Vol] 0.7 mg/dL Normal 0.3-1.2 [facility] Comment on above: Performed By: #### C BCA, CMP, 5643-2, 3298-7, 4024-6, THYR #### [facility] ([id number]) [address] [place] [address] 98959 Calcium [Mass/Vol] 8.9 mg/dL Normal 8.5-10.5 [facility] Comment on above: Performed By: #### C BCA, CMP, 5643-2, 3298-7, 4024-6, THYR #### [facility] ([id number]) [address] [place] [address] 47762 Chloride [Moles/Vol] 106 mmol/L Normal 98-109 [facility] Comment on above: Performed By: #### C BCA, CMP, 5643-2, 3298-7, 4024-6, THYR #### [facility] ([id number]) [address] [place] [address] 51772 CO2 [Moles/Vol] 24 mmol/L Normal 22-32 [facility] Comment on above: Performed By: #### C BCA, CMP, 5643-2, 3298-7, 4024-6, THYR #### [facility] ([id number]) [address] [place] [address] 50676 Creatinine [Mass/Vol] 0.88 mg/dL Normal 0.70-1.20 [facility] Comment on above: Result Comment: METH OD TRACEABLE TO IDMS STANDARD Performed By: #### C BCA, CMP, 5643-2, 3298-7, 4024-6, THYR #### [facility] ([id number]) [address] [place] [address] 03578 eGFR (CKD-EPI) NON-RACE DEPENDENT >90 Normal >59 [facility] Comment on above: Result Comment: Reported eGFR is based on the CKD-EPI 2020 equation that does not use a race coefficient. Performed By: #### C BCA, CMP, 5643-2, 3298-7, 4024-6, THYR #### [facility] ([id number]) [address] [place] [address] 16907 Glucose [Mass/Vol] 105 mg/dL High 65-99 [facility] Comment on above: Performed By: #### C BCA, CMP, 5643-2, 3298-7, 4024-6, THYR #### [facility] ([id number]) [address] [place] [address] 32101 Potassium [Moles/Vol] 3.9 mmol/L Normal 3.5-5.0 [facility] Comment on above: Performed By: #### C BCA, CMP, 5643-2, 3298-7, 4024-6, THYR #### [facility] ([id number]) [address] [place] [address] 17765 Protein [Mass/Vol] 6.9 g/dL Normal 6.0-8.0 [facility] Comment on above: Performed By: #### C BCA, CMP, 5643-2, 3298-7, 4024-6, THYR #### [facility] ([id number]) [address] [place] [address] 57974 Sodium [Moles/Vol] 138 mmol/L Normal 134-146 [facility] Comment on above: Performed By: #### C BCA, CMP, 5643-2, 3298-7, 4024-6, THYR #### [facility] ([id number]) [address] [place] [address] 65871 Urea nitrogen [Mass/Vol] 20 mg/dL Normal 5-23 [facility] Comment on above: Performed By: #### C BCA, CMP, 5643-2, 3298-7, 4024-6, THYR #### [facility] ([id number]) [address] [place] [address] 50723 DRUG SCREEN, URINEon 025 AMPHETAMINE/METHAMP Negative Normal NEG [facility] Comment on above: Result Comment: AMPH /METH screening cut off = 1000 ng/mL Performed By: #### D FAGAN #### [facility] ([id number]) [address] [place] [address] 93793 BARBITURATES Negative Normal NEG [facility] Comment on above: Result Comment: Izabel iturates screening cut off value = 200 ng/mL Performed By: #### D FAGAN #### [facility] ([id number]) [address] [place] [address] 51803 BENZODIAZEPINES Negative Normal NEG [facility] Comment on above: Result Comment: Skyler odiazepines screening cut off value = 200 ng/mL Performed By: #### D FAGAN #### [facility] ([id number]) [address] [place] [address] 69216 CANNABINOIDS Negative Normal NEG [facility] Comment on above: Result Comment: Sabina abinoids/THC screening cut off value = 50 ng/mL Performed By: #### D FAGAN #### [facility] ([id number]) [address] [place] [address] 33100 COCAINE METABOLITE Negative Normal NEG [facility] Comment on above: Result Comment: Coca ine screening cut off value = 300 ng/mL Performed By: #### D FAGAN #### [facility] ([id number]) [address] [place] [address] [place] [address] ECSTASY Negative Normal NEG [facility] Comment on above: Result Comment: Ecst asy screening cut off value = 500 ng/mL This report is intended for use in clinical monitoring or management of patients. Performed By: #### D FAGAN #### [facility] ([id number]) [address] [place] [address] 43933 METHADONE Negative Normal NEG [facility] Comment on above: Result Comment: Meth adone screening cut off value = 300 ng/mL. Performed By: #### D FAGAN #### [facility] ([id number]) [address] [place] [address] 69594 OPIATES Negative Normal NEG [facility] Comment on above: Result Comment: Opia ann screening cut off value = 300 ng/mL NOTE: This test is used for the detection of codeine, hydrocodone (>1000 ng/mL), morphine and hydromorphone (>900 ng/mL) in urine. Performed By: #### D FAGAN #### [facility] ([id number]) [address] [place] [address] 95259 OXYCODONE Negative Normal NEG [facility] Comment on above: Result Comment: Oxyc odone screening cut off value = 300 ng/mL NOTE: This test is used for the detection of oxycodone and oxymorphone in urine. Performed By: #### D FAGAN #### [facility] ([id number]) [address] [place] [address] 06828 PHENCYCLIDINE Negative Normal NEG [facility] Comment on above: Result Comment: Phen cyclidine screening cut off value = 25 ng/mL Performed By: #### D FAGAN #### [facility] ([id number]) [address] [place] [address] 66440 ETHANOLon 06-24-2024 Ethanol [Mass/Vol] mg/dL Normal 0.00-0.08 [facility] Comment on above: Result Comment: This report is intended for use in clinical monitoring or management of patients. Performed By: #### C BCA, CMP, 5643-2, 3298-7, 4024-6, THYR #### [facility] ([id number]) [address] [place] [address] 75315 Salicylates [Mass/Vol]on SALICYLATE <4.0 Normal 2.0-25.0 [facility] Comment on above: Result Comment: Refe rence ranges are for therapeutic limits. Performed By: #### C CARRIE, OWEN, 5643-2, 3298-7, 4024-6, THYR #### [facility] ([id number]) [address] [place] [address] 18248 THYROID PROFILEon 06-24-2024 Free T4 [Mass/Vol] 0.92 ng/dL Normal 0.61-1.60 [facility] Comment on above: Performed By: #### C CARRIE, [facility], 5643-2, 3298-7, 4024-6, THYR #### [facility] ([id number]) [address] [place] [address] 76526 TSH 4.19 uIU/mL Normal 0.49-4.67 [facility] Comment on above: Performed By: #### C CARRIE, [facility], 43-2, 3298-7, 4024-6, THYR #### [facility] ([id number]) [address] [place] [address] [place] [address] URN MACROSCOPIC NURon 2024 BILIRUBIN IRMA Negative Normal NEG [facility] Comment on above: Performed By: #### N UM #### [facility] ([id number]) [address] [place] [address] [place] [address] BLOOD/HGB IRMA Negative Normal NEG [facility] Comment on above: Performed By: #### N UM #### [facility] ([id number]) [address] [place] [address] [place] [address] GLUCOSE IRMA Negative Normal NEG [facility] Comment on above: Performed By: #### N UM #### [facility] ([id number]) [address] [place] [address] [place] [address] KETONES IRMA Negative Normal NEG [facility] Comment on above: Performed By: #### N UM #### [facility] ([id number]) [address] [place] [address] [place] [address] LEUKOCYTE ESTERASE IRMA Negative Normal NEG [facility] Comment on above: Performed By: #### N UM #### [facility] ([id number]) [address] [place] [address] 47693 NITRITE IRMA Negative Normal NEG [facility] Comment on above: Performed By: #### N UM #### [facility] ([id number]) [address] [place] [address] 94347 PH IRMA 7.5 Normal 5.0-8.5 [facility] Comment on above: Performed By: #### N UM #### [facility] ([id number]) [address] [place] [address] 73570 PROTEIN IRMA Negative Normal NEG [facility] Comment on above: Performed By: #### N UM #### [facility] ([id number]) [address] [place] [address] 78313 SPECIFIC GRAVITY IRMA 1.015 Normal 1.003-1.035 [facility] Comment on above: Performed By: #### N UM #### [facility] ([id number]) [address] [place] [address] 64039 UROBILINOGEN IRMA 0.2 eu/dL Normal <1.1 [facility] Comment on above: Performed By: #### N UM #### [facility] ([id number]) [address] [place] [address] 34738 BMPon 06-21-2024 Anion gap [Moles/Vol] 11 mmol/L Normal 6-16 [facility] Comment on above: Performed By: #### 2 [id number] #### [facility] [address] [place] [address] Calcium [Mass/Vol] 9.0 mg/dL Normal 8.9-11.1 [facility] Comment on above: Performed By: #### 2 990224 #### [facility] [address] [place] [address] Chloride [Moles/Vol] 102 mmol/L Normal 101-111 [facility] Comment on above: Performed By: #### 2 135866 #### [facility] [address] [place] [address] CO2 [Moles/Vol] 30 mmol/L Normal 21-31 [facility] Comment on above: Performed By: #### 2 448337 #### [facility] [address] [place] [address] Creatinine [Mass/Vol] 0.9 mg/dL Normal 0.5-1.3 [facility] Comment on above: Performed By: #### 2 281908 #### [facility] [address] [place] [address] Glucose [Mass/Vol] 108 mg/dL Normal 55-199 [facility] Comment on above: Performed By: #### 2 454352 #### [facility] [address] [place] [address] Potassium [Moles/Vol] 3.9 mmol/L Normal 3.5-5.3 [facility] Comment on above: Performed By: #### 2 855734 #### [facility] [address] [place] [address] Sodium [Moles/Vol] 139 mmol/L Normal 135-145 [facility] Comment on above: Performed By: #### 2 314824 #### [facility] [address] [place] [address] Urea nitrogen [Mass/Vol] 12 mg/dL Normal 5-21 [facility] Comment on above: Performed By: #### 2 924615 #### [facility] [address] [place] [address] Urea nitrogen/Creatinine [Mass ratio] 13 No Units Normal 10-20 [facility] Comment on above: Performed By: #### 2 735388 #### [facility] [address] [place] [address] CBC w/ Auto Diffon 01-02-202 5 Basophils/100 WBC (Bld) 0.6 % Normal 0.0-2.0 [facility] Comment on above: Performed By: #### 2 210093 #### [facility] [address] [place] [address] Basophils/Leukocytes Auto (Bld) [Pure # fraction] 0.0 E9/L Normal 0.0-0.2 [facility] Comment on above: Performed By: #### 2 745870 #### [facility] [address] [place] [address] Eosinophils (Bld) [#/Vol] 0.0 E9/L Normal 0.0-0.5 [facility] Comment on above: Performed By: #### 2 176593 #### [facility] [address] [place] [address] 21431 Eosinophils/100 WBC (Bld) 0.6 % Normal 0.0-8.0 [facility] Comment on above: Performed By: #### 2 377102 #### [facility] [address] [place] [address] 40037 Erythrocyte distribution width (RBC) [Ratio] 15.6 % High 10.9-14.2 [facility] Comment on above: Performed By: #### 2 216409 #### [facility] [address] [place] [address] 42515 Hematocrit (Bld) [Volume fraction] 45.0 % Normal 37.7-49.0 [facility] Comment on above: Performed By: #### 2 900483 #### [facility] [address] [place] [address] Hemoglobin (Bld) [Mass/Vol] 14.7 g/dL Normal 13.5-17.5 [facility] Comment on above: Performed By: #### 2 069375 #### [facility] [address] [place] [address] Hypochromia Auto Ql (Bld) PRESENT Invalid Interpretation Code [facility] Comment on above: Performed By: #### 2 274325 #### [facility] [address] [place] [address] Lymphocytes (Bld) [#/Vol] 1.1 E9/L Normal 1.0-4.0 [facility] Comment on above: Performed By: #### 2 200999 #### [facility] [address] [place] [address] Lymphocytes/100 WBC (Bld) 23.5 % Normal 14.0-50.0 [facility] Comment on above: Performed By: #### 2 766449 #### [facility] [address] [place] [address] MCH (RBC) [Entitic mass] 24.7 pg Low 27.0-34.0 [facility] Comment on above: Performed By: #### 2 638725 #### [facility] [address] [place] [address] 71917 MCHC (RBC) [Mass/Vol] 32.7 g/dL Normal 31.4-36.0 [facility] Comment on above: Performed By: #### 2 996690 #### [facility] [address] [place] [address] 82415 MCV (RBC) [Entitic vol] 75.5 fL Low 80.0-100.0 [facility] Comment on above: Performed By: #### 2 638679 #### [facility] [address] [place] [address] 01572 Monocytes (Bld) [#/Vol] 0.2 E9/L Normal 0.2-1.0 [facility] Comment on above: Performed By: #### 2 686941 #### [facility] [address] [place] [address] Neutrophils (Bld) [#/Vol] 3.3 E9/L Normal 2.0-7.5 [facility] Comment on above: Performed By: #### 2 809995 #### [facility] [address] [place] [address] 97672 Neutrophils/100 WBC (Bld) 70.5 % Normal 36.0-75.0 [facility] Comment on above: Performed By: #### 2 104522 #### [facility] [address] [place] [address] Platelet mean volume (Bld) [Entitic vol] 8.5 fL Normal 6.4-10.8 [facility] Comment on above: Performed By: #### 2 543677 #### [facility] [address] [place] [address] Platelets (Bld) [#/Vol] 167.0 E9/L Normal 150.0-500.0 [facility] Comment on above: Performed By: #### 2 459408 #### [facility] [address] [place] [address] RBC (Bld) [#/Vol] 6.0 E12/L High 4.3-5.9 [facility] Comment on above: Performed By: #### 2 566946 #### [facility] [address] [place] [address] RBC size Nom (Bld) SEE MORPHOLOGY Invalid Interpretation Code [facility] Comment on above: Performed By: #### 2 180521 #### [facility] [address] [place], [place] [address] WBC corrected for nucl RBC Auto (Bld) [#/Vol] 4.6 E9/L Normal 4.0-11.0 [facility] Comment on above: Performed By: #### 2 [id number] #### [facility] [address] [place] [address] CHEMISTRYOrdered By: SYSTEM SYSTEM on 06-21-2024 Anion [...] 30.4 s Normal 25.1 - 36.5 second(s) [facility] Coag Comment on above: Interpretive Data: [...] the same coagulation reagent and instrumentation as [facility]. Currently there are no coagulation studies available worldwide for children to 14 days, and no normal ranges. Heparin therapeutic range (represented by Anti-Factor Xa activity of 0.2 - 0.4 U/mL) corresponds to PTT of 56.6 - 109.0 sec. INR Coag (PPP) [Relative time] 1.02 {INR} Invalid Interpretation Code [facility] Comment on above: Interpretive Data: I NR results are specifically intended to assess patients stabilized on long-term Anticoagulation therapy suggested INR s Less Intensive Anticoagulation 2.0 3.0 Conventional Range 3.0 4.5 PT Coag (PPP) [Time] 11.4 s Normal 9.4 - 1 2.5 second(s) [facility] Comment on above: Interpretive Data: [...] the same coagulation reagent and instrumentation as [facility]. Currently there are no coagulation studies available [...] Coag (PPP) [Time] 30.4 second(s) Normal 25.1-36.5 [facility] Comment on above: Result Comment: Para meter 15 days - 4 weeks 1 - 5 months 6 - 11 months 1 - 5 years 6 - 10 years 11 - 17 years PTT Mean: 35.4 (27.6-45.6) Mean: 33.5 (24.8-40.7) Mean: 32.4 (25.1-40.7) Mean: 31.6 (24.0-39.2) Mean: 31.6 (26.9-38.7) Mean: 31.0 (24.6-38.4) Pediatric Reference ranges were obtained from a study by Brayden [place], et al. prepared from 1437 samples obtained at 7 different centers using the same coagulation reagent and instrumentation as [facility]. Currently there are no coagulation studies available worldwide for children to 14 days, and no normal ranges. Heparin therapeutic range (represented by Anti-Factor Xa activity of 0.2 - 0.4 U/mL) corresponds to PTT of 56.6 - 109.0 sec. Performed By: #### 1 [id number] #### [facility] [address] [place] [address] INR Coag (PPP) [Relative time] 1.02 {INR} Invalid Interpretation Code [facility] Comment on above: Result Comment: INR results are specifically intended to assess patients stabilized on long-term Anticoagulation therapy suggested INR???s ???Less Intensive Anticoagulation??? 2.0 ??? 3.0 Conventional Range 3.0 ??? 4.5 Performed By: #### 1 [id number] #### [facility] [address] [place] [address] PT Coag (PPP) [Time] 11.4 second(s) Normal 9.4-12.5 [facility] Comment on above: Result Comment: 15 d [...] the same coagulation reagent and instrumentation as [facility]. Currently there are no coagulation studies available worldwide for children to 14 days, and no normal ranges. Performed By: #### 1 [id number] #### [facility] [address] [place] [address] UA with Cult Rflxon 06-21-19 25 Bilirubin Ql (U) Negative Normal Negative [facility] Comment on above: Performed By: #### 4 [id number] #### [facility] [address] [place] [address] Clarity (U) Clear Normal Clear [facility] Comment on above: Performed By: #### 4 [id number] #### [facility] [address] [place] [address] Color (U) Colorless Abnormal Yellow [facility] Comment on above: Result Comment: Micr oscopic readings are only performed on those samples that meet specific criteria set forth by [facility]. Performed By: #### 4 [id number] #### [facility] [address] [place] [address] Glucose Ql (U) Negative Normal Negative [facility] Comment on above: Performed By: #### 4 [id number] #### [facility] [address] [place] [address] Hemoglobin Auto test strip (U) [Mass/Vol] Negative Normal Negative [facility] Comment on above: Performed By: #### 4 [id number] #### [facility] [address] [place] [address] Ketones Auto test strip Ql (U) Negative Normal Negative [facility] Comment on above: Performed By: #### 4 [id number] #### [facility] [address] [place] [address] Leukocyte esterase Auto test strip Ql (U) Negative Normal Negative [facility] Comment on above: Performed By: #### 4 [id number] #### [facility] [address] [place] [address] Nitrite Auto test strip Ql (U) Negative Normal Negative [facility] Comment on above: Performed By: #### 4 [id number] #### [facility] [address] [place] [address] pH (U) 7.0 [pH] Invalid Interpretation Code 5.0-9.0 [facility] Comment on above: Performed By: #### 4 [id number] #### [facility] [address] [place] [address] Protein Ql (U) Negative Normal Negative [facility] Comment on above: Performed By: #### 4 [id number] #### [facility] [address] [place] [address] Specific gravity (U) [Rel density] 1.005 Invalid Interpretation Code 1.005-1.030 [facility] Comment on above: Performed By: #### 4 [id number] #### [facility] [address] [place] [address] Urobilinogen (U) [Mass/Vol] Negative Normal Negative [facility] Comment on above: Performed By: #### 4 [id number] #### [facility] [address] [place] [address] Type of Urine collection method Clean Catch Normal [facility] Comment on above: Performed By: #### 4 [id number] #### [facility] [address] [place] [address] URINALYSISOrdered By: SYSTEM SYSTEM on 06-21-2024 Bilirubin Ql (U) Negative Normal Negativemg/dL [facility] UA Auto SS Clarity (U) Clear (06/21/24 11:04 AM) Normal Clear [facility] UA Auto SS Color (U) Colorless 1 *ABN* (06/21/24 11:04 AM) Invalid Interpretation Code Yellow [facility] UA Auto SS Comment on above: Interpretive Data: M icroscopic readings are only performed on those samples that meet specific criteria set forth by [facility]. Glucose Ql (U) Negative Normal Negativemg/dL [facility] UA Auto SS Hemoglobin Auto test strip (U) [Mass/Vol] Negative Normal Negativemg/dL [facility] UA Aut o SS Ketones Auto test strip Ql (U) Negative Normal Negativemg/dL [facility] UA Auto SS Leukocyte esterase Auto test strip Ql (U) Negative Normal NegativeLeu/uL [facility] UA A uto SS Nitrite Auto test strip Ql (U) Negative Normal Negativemg/dL [facility] UA Auto SS pH (U) 7.0 *NA* (06/21/24 11:04 AM) Invalid Interpretation Code 5.0 - 9.0 [facility] UA Auto SS Protein Ql (U) Negative Normal Negativemg/dL [facility] UA Auto SS Specific gravity (U) [Rel density] 1.005 *NA* (06/21/24 11:04 AM) Invalid Interpretation Code 1.005 - 1.030 [facility] UA Auto SS Urobilinogen (U) [Mass/Vol] Negative Normal Negativemg/dL [facility] UA Auto SS URINALYSISOrdered By: Peter Larios on 06-21-2024 UA Spec Desc Clean Catch (06/21/24 11:04 AM) Normal [facility] UA Auto SS XR Chest 2 Viewson [...] mGy = na DAP = na Normal [facility] eGFRon 06-21-2024 eGFR 98 mL/min/1.73 m2 Normal >=59 [facility] Comment on above: Performed By: #### 1 [id number] #### [facility] [address] [place] [address] Provider Letteron 04-18-2024 Provider Letter Provider Letter April 18, 2024 NOÉ JEFFERY [address] [place] [id number] : 1965 Dear, I am corresponding with [...] Sincerely, Dr. Danni Graham [facility] [address] [facility] [address] [place] [id number] Normal [facility] ISTAT XRay CREon 03-15-2024 ISTAT GFR > 60.0 Normal [facility] Comment on above: Result Comment: PERF ORMED BY: [place] [address] PATHOLOGIST QUALITY CONTROL ANALYST NALDO SALDIVAR M.D. Performed By: #### I [facility] #### [address] MR prostate wo/w conon 03-15 MR prostate wo/w con [facility] Main [place] [address] [place] [address] MRI Report Signed Patient: Noé Jeffery MR#: [id number] : 1965 Acct:[id number] Age/Sex: 58 / M ADM Date: 03/15/24 Loc: Room: Type: [facility] Attending Dr: Danni Graham MD Copies to: [...] Anne Jr., D.OChong03/15/2024 3:05 PM Dictation Location: [place] [address] Transcribed By: [facility] 03/15/24 1505 Dictated By: Esdras Anne Jr, DO 03/15/24 1501 Signed By: 03/15/24 1505 Normal [facility] No Panel InformationOrdered By: Danni Graham on 03-15-2024 Bedside Estimated GFR (eGFR) > 60.0 [facility] Whole blood creatinine measu rementOrdered By: Danni Graham on 03-15-2024 Creatinine [Mass/Vol] 1.0 mg/dL Normal 0.6-1.3 [facility] Comment on above: ER/ESD physician is notified/shown all ISTAT results.Critical values may be confirmed by laboratory testing ifdeemed necessary by ER attending doctor. Result Comment: ER/E SD physician is notified/shown all ISTAT results. Critical values may be confirmed by laboratory testing if deemed necessary by ER attending doctor. Performed By: #### I SCRE #### [facility] [address] [place] [address] Marjorie 03-07-2023 [facility] Telephone ([facility] ---- NOÉ JEFFERY ([id number]) 1965 M Date Time Provider Department 03/07/23 CHASIDY STOVALLLARISA During your visit today, we recorded the following information about you: Chasidy Stovall, Research Coordinator 03/07/2023 1:44 PM Signed A voicemail was left about participation in [facility] research study. Chasidy Stovall, Research Coordinator 03/14/2023 1:46 PM Addendum Another voicemail was left in regards to potential participation. Allergies As of Date: 03/07/2023 (No Known Allergies) Date Reviewed: 10/12/2022 Reviewed by: Miguelito Chicas APRN.WEB PRESS OPERATOR - Fully Assessed Reason for Visit: Research [293] Cmt: [facility] (IRB [id number]) Primary Visit Diagnosis:Research study patient [...] Encounter Status:Closed by CHASIDY STOVALL on 03/07/23 [facility] Marjorie 02-08-2023 [facility] Telephone ([facility]) ---- NOÉ JEFFERY ([id number]) 1965 M Date Time Provider Department 02/08/23 CHASIDY STOVALL During your visit today, we recorded the following information about you: Chasidy Stovall, Research Coordinator 02/08/2023 1:26 PM Signed A call was made to of patient to talk about interest in participating in [facility]. expressed interest in participating. The [facility] consent document was sent through email. A call will be made in a week to discuss enrollment. Allergies As of Date: 02/08/2023 (No Known Allergies) Date Reviewed: 10/12/2022 Reviewed by: Miguelito Chicas APRN.WEB PRESS OPERATOR - Fully Assessed Reason for Visit: Research [293] Cmt: [facility] (IRB [id number]) Interest Primary Visit Diagnosis:Research study [...] Encounter Status:Closed by CHASIDY STOVALL on 02/08/23 [facility] 02[facility]20[facility] ---- NOÉ JEFFERY ([id number]) 1965 M Date Time Provider Department 02/04/23 SANDIE WEINSTEIN [facility] During your visit today, we recorded the following information about you: Domingo Fried 02/04/2023 8:38 AM Signed Allergies As of Date: 02/04/2023 (No Known Allergies) Date Reviewed: 10/12/2022 Reviewed by: Miguelito Chicas APRN.WEB PRESS OPERATOR - Fully Assessed Reason for Visit: PAP [...] Encounter Status:Closed by DOMINGO FRIED on 02/04/23 [facility] Marjorie 01-13-2023 [facility] ---- NOÉ JEFFERY ([id number]) 1965 M Date Time Provider Department 01/13/23 MIQUEL DIAMOND [facility] During your visit today, we recorded the [...] Encounter Status:Closed by [facility]EL [facility] ---- NOÉ JEFFERY ([id number]) 1965 M Date Time Provider Department 12/03/22 SANDIE WEINSTEIN [facility] During your visit today, we recorded the following information about you: Domingo Fried 12/03/2022 11:39 AM Signed Faxed order, office notes, demographics, and sleep study to: DME name: [facility] DME fax: [phone] DME ph: Allergies As of Date: 12/03/2022 (No Known Allergies) Date Reviewed: 10/12/2022 Reviewed by: Miguelito Chicas APRN.WEB PRESS OPERATOR - Fully Assessed Reason for Visit: PAP Rx Faxed [[id number]] Cmt: DME: [facility] Prescriptions as of 12/03/2022 - CPAP/BIPAP/OTHER [...] Encounter Status:Closed by DOMINGO FRIED on 12/03/22 [facility] Marjorie 11-08-2022 [facility] Telephone ([facility]) ---- NOÉ JEFFERY ([id number]) 1965 M Date Time Provider Department 11/08/22 SANDIE WEINSTEIN [facility] During your visit today, we recorded the following information about you: Petrona Guzman LPN 11/08/2022 11:52 AM Signed Message was sent to [facility] requesting a 30 day compliance rpt to be sent to our [place] office for Pt's upcoming appt. Will await for rpts to be sent. Petrona Guzman LPN 11/09/2022 8:40 AM Signed Rpt was received and was scanned in Pts chart. Allergies As of Date: 11/08/2022 (No Known Allergies) Date Reviewed: 10/12/2022 Reviewed by: Miguelito Chicas APRN.WEB PRESS OPERATOR - Fully Assessed Reason for Visit: Download [...] Encounter Status:Closed by PETRONA GUZMAN on 11/08/22 [facility] RITO by IFAon 10-25-2022 Antinuclear Antibodies, IFA Negative Normal [facility] Comment on above: Result Comment: Nega tive <1:80 Borderline 1:80 Positive >1:80 ICAP nomenclature: AC-0 For more information about Hep-2 cell patterns use ANApatterns.org, the official website for the International Consensus on Antinuclear Antibody (RITO) Patterns (ICAP). Performed By: #### T 7, TSH, CMP, LISANDRA, LIPA, LIPID #### [facility] [address] [place] [address] Dr. Janell Marquez ANTISTREPTOLYSIN O AB (ASO)o n 10-22-2022 Antistreptolysin O Ab 45.9 IU/mL Normal 0.0-200.0 [facility] Comment on above: Performed By: #### A SOAB #### [facility] [address] [place] [address] Dr. Janell Marquez RHEUMATOID FACTORon 10-23-19 RA Latex Turbid. <10.0 Normal <14.0 [facility] Comment on above: Performed By: #### R F #### [facility] [address] [place] [address] Dr. Janell Marquez CBC AUTO DIFFon 10-21-2022 BASO # 0.0 103/ul Normal 0.0-0.1 [facility] Comment on above: Performed By: #### T 7, TSH, CMP, LISANDRA, LIPA, LIPID #### [facility] [address] [place] [address] Dr. Janell Marquez Basophils/100 WBC (Bld) 0.4 % Normal 0.2-2.0 [facility] Comment on above: Performed By: #### T 7, TSH, CMP, LISANDRA, LIPA, LIPID #### [facility] [address] [place] [address] Dr. Janell Marquez EO # 0.0 103/ul Normal 0.0-0.7 [facility] Comment on above: Performed By: #### T 7, TSH, CMP, LISANDRA, LIPA, LIPID #### [facility] [address] [place] [address] Dr. Janell Marquez Eosinophils/100 WBC (Bld) 0.7 % Critically low 0.9-7.0 [facility] Comment on above: Performed By: #### T 7, TSH, CMP, LISANDRA, LIPA, LIPID #### [facility] [address] [place] [address] Dr. Janell Marquez Erythrocyte distribution width (RBC) [Ratio] 16.1 % Critically high 11.0-15.0 [facility] Comment on above: Performed By: #### T 7, TSH, CMP, LISANDRA, LIPA, LIPID #### [facility] [address] [place] [address] Dr. Janell Marquez Hematocrit (Bld) [Volume fraction] 48.8 % Normal 42.0-54.0 [facility] Comment on above: Performed By: #### T 7, TSH, CMP, LISANDRA, LIPA, LIPID #### [facility] [address] [place] [address] Dr. Janell Marquez Hemoglobin (Bld) [Mass/Vol] 15.3 g/dL Normal 14.0-18.0 [facility] Comment on above: Performed By: #### T 7, TSH, CMP, LISANDRA, LIPA, LIPID #### [facility] [address] [place] [address] Dr. Janell Marquez IG # 0.02 10e3/ul Normal 0.00-0.03 [facility] Comment on above: Performed By: #### T 7, TSH, CMP, LISANDRA, LIPA, LIPID #### [facility] [address] [place] [address] Dr. Janell Marquez IG % 0.4 % Normal 0.0-0.5 [facility] Comment on above: Performed By: #### T 7, TSH, CMP, LISANDRA, LIPA, LIPID #### [facility] [address] [place] [address] Dr. Janell Marquez LYMPH # 1.3 103/ul Normal 1.2-3.8 [facility] Comment on above: Performed By: #### T 7, TSH, CMP, LISANDRA, LIPA, LIPID #### [facility] [address] [place] [address] Dr. Janell Marquez Lymphocytes/100 WBC (Bld) 29.0 % Normal 20.5-60.0 [facility] Comment on above: Performed By: #### T 7, TSH, CMP, LISANDRA, LIPA, LIPID #### [facility] [address] [place] [address] Dr. Janell Marquez MANUAL DIFF REQ NO Normal [facility] Comment on above: Performed By: #### T 7, TSH, CMP, LISANDRA, LIPA, LIPID #### [facility] [address] [place] [address] Dr. Janell Marquez MCH (RBC) [Entitic mass] 23.5 pg Critically low 25.9-34.0 [facility] Comment on above: Performed By: #### T 7, TSH, CMP, LISANDRA, LIPA, LIPID #### [facility] [address] [place] [address] Dr. Janell Marquez MCHC (RBC) [Mass/Vol] 31.4 g/dL Normal 29.9-35.2 [facility] Comment on above: Performed By: #### T 7, TSH, CMP, LISANDRA, LIPA, LIPID #### [facility] [address] [place] [address] Dr. Janell Marquez MCV (RBC) [Entitic vol] 74.8 fL Critically low 80.0-94.0 [facility] Comment on above: Performed By: #### T 7, TSH, CMP, LISANDRA, LIPA, LIPID #### [facility] [address] [place] [address] Dr. Janell Marquez MONO # 0.3 103/ul Normal 0.3-0.8 [facility] Comment on above: Performed By: #### T 7, TSH, CMP, LISANDRA, LIPA, LIPID #### [facility] [address] [place] [address] Dr. Janell Marquez Monocytes/100 WBC (Bld) 7.4 % Normal 1.7-12.0 [facility] Comment on above: Performed By: #### T 7, TSH, CMP, LISANDRA, LIPA, LIPID #### [facility] [address] [place] [address] [address] Janell Marquez NEUT # 2.9 103/ul Normal 1.4-6.5 [facility] Comment on above: Performed By: #### T 7, TSH, CMP, LISANDRA, LIPA, LIPID #### [facility] [address] [place] [address] [address] Janell Marquez Neutrophils/100 WBC (Bld) 62.1 % Normal 43.0-75.0 [facility] Comment on above: Performed By: #### T 7, TSH, CMP, LISANDRA, LIPA, LIPID #### [facility] [address] [place] [address] [address] Janell Marquez Platelet mean volume (Bld) [Entitic vol] 9.3 fL Critically low 9.5-13.5 [facility] Comment on above: Performed By: #### T 7, TSH, CMP, LISANDRA, LIPA, LIPID #### [facility] [address] [place] [address] [address] Janell Marquez PLT 203 103/ul Normal 150-450 [facility] Comment on above: Performed By: #### T 7, TSH, CMP, LISANDRA, LIPA, LIPID #### [facility] [address] [place] [address] Dr. Janell Marquez RBC 6.52 106/ul Critically high 4.70-6.10 [facility] Comment on above: Performed By: #### T 7, TSH, CMP, LISANDRA, LIPA, LIPID #### [facility] [address] [place] [address] [address] Janell Marquez WBC 4.6 103/ul Normal 4.0-11.0 [facility] Comment on above: Performed By: #### T 7, TSH, CMP, LISANDRA, LIPA, LIPID #### [facility] [address] [place] [address] Dr. Janell Marquez CRPon 10-21-2022 CRP [Mass/Vol] mg/L Normal <=1.0 [facility] Comment on above: Performed By: #### T 7, TSH, CMP, LISANDRA, LIPA, LIPID #### [facility] [address] [place], [place] [address] Dr. Janell Marquez SED RATE WESTERGRENon 2022 SED RATE 30 mm/hr Critically high <=20 [facility] Comment on above: Performed By: #### T 7, TSH, CMP, LISANDRA, LIPA, LIPID #### [facility] [address] [place] [address] [address] Janell Marquez URIC ACID SERUMon 10-21-2022 Urate [Mass/Vol] 4.3 mg/dL Normal 3.5-7.2 [facility] Comment on above: Performed By: #### T 7, TSH, CMP, LISANDRA, LIPA, LIPID #### [facility] [address] [place] [address] [address] Janell Marquez ADMARK PHOSPHO-TAU TOTAL-TAU /AB42 CSFon 10-12-2022 COMMENT SEE NOTE Normal [facility] Comment on above: Order Comment: Speci men Type: CEREBROSPINAL FLUIDOrdering Facility: [facility] Address: [address] [place] [id number] Result Comment: Comm ents: This analysis detected levels of CSF A-beta 42 peptide (A-beta 42) and total tau (T-tau) proteins, reflected in a reduced A-beta 42 to T-tau Index (ATI). The level of phospho-tau (P-tau) was also elevated. These results are consistent with a diagnosis of Alzheimer's disease (AD). Recommendations: Health care providers, please contact the [facility] Client Services Department at if you wish to speak with a clinical supply chain consultant regarding this test result. Background information: [...] (6). Performed By: #### P HOTAU ####ATHENACLIA [id number] [place] [address] INTERPRETATION SEE NOTE Normal [facility] Comment on above: Order Comment: Speci men Type: CEREBROSPINAL FLUIDOrdering Facility: [facility] Address: [address] [place] [address] Result Comment: This test detected a reduced A-beta 42 to T-tau Index (ATI) and elevated levels of P-tau protein in the cerebrospinal fluid (CSF). Performed By: #### P HOTAU ####ATHENACLIA [id number] [place] [address] METHOD SEE NOTE Normal [facility] Comment on above: Order Comment: Speci men Type: CEREBROSPINAL FLUIDOrdering Facility: [facility] Address: [address] [place] [address] Result Comment: Dete ction of proteins was performed by Enzyme Linked Immunosorbent Assay (ACRLITO) methodology. Limitations of analysis: Although rare, false positive or false negative results may occur. All results should be interpreted in the context of clinical findings, relevant history, and other laboratory data. Performed By: #### Mckenzie HAUSER ####ATHENACLKRISTINA [id number] [place] [address] REFERENCES SEE NOTE Normal [facility] Comment on above: Order Comment: Speci men Type: CEREBROSPINAL FLUIDOrdering Facility: [facility] Address: [address] [place], [place] [id number] Result Comment: 1. Hemanth Williamson et al. (2014) Front Aging Neurosci 6: 47. (PMID: 17257512) 2. Rian T. (2008) Maria R Med 10:231-9 (PMID:06049468) 3. Braak, H, et al. (1991) Acta Neuropathol 82: 239-59. (PMID: 3765307) 4. Ousmane Pedraza et al. (1999) Neurology 52: 1555-62. (PMID: 25187162) 5. Bill Long. (2004) NeuroRx 1: 213-25. (PMID: 20677721) 6. Bill Long et al. (2015) Alzheimers Binh 11: 58-69. (PMID: 78535813) This test was developed and its analytical performance characteristics have been determined by [facility]. It has not been cleared or approved by the U.S. Food and Drug Administration. This assay has been validated pursuant to the CLIA regulations and is used for clinical purposes. Laboratory oversight provided by Delvin Figueredo M.D., Ph.D., CLIA license [place], [facility] (CLIA# [id number]) Testing performed at: [facility] [address] [place] [address] Performed By: #### Mckenzie HAUSER ####ATHENARUBEN [id number] [address] [address] TECHNICAL RESULTS SEE NOTE Normal [facility] Comment on above: Order Comment: Speci men Type: CEREBROSPINAL FLUIDOrdering Facility: [facility] Address: [address] [place] [phone] Result Comment: Interpretive Result Table INTERPRETATION: Alzheimer [...] RANGE: Performed By: Lynda### P ANALISA ####JANLACIRUBEN [id number] [address] [address] CNOVon 10-12-2022 CNOV Office Visit (ANAMIKA) ---- NOÉ JEFFERY ([id number]) 1965 M Date Time Provider Department 10/12/22 10:30 AM MIGUELITO CHICAS During your visit today, we recorded the following information about you: Pulse Blood pressure 58/minute 117/74 Miguelito Chicas APRN.CNP 10/12/2022 2:33 PM Signed [facility] PROCEDURE FOR DIAGNOSTIC TESTING Noé Jeffery, [id number] October 12, 2022, 8:57 AM INFORMED CONSENT The risks, benefits and anticipated outcomes of the procedure, the risks and benefits of the alternatives to the procedure and the roles and tasks of the personnel to be involved were discussed with the patient, who consents to the procedure and agrees to proceed. I verify that I personally obtained Noé Jeffery's consent, Miguelito Chicas APRN.WEB PRESS OPERATOR UNIVERSAL PROTOCOL / SAFETY CHECKLIST Procedure to [...] Miguelito Chicas APRN.CNP 10/12/2022 10:31 AM Signed [facility] GOING HOME INSTRUCTIONS POST LP [...] as coffee or tea You can take yonn-krt-yhbaxoo Tylenol and/or Ibuprofen as directed INFECTION PREVENTION [...] from 8-5pm, please contact our office line [phone] and then hit [phone] , please ask our administrative project coordinator to page the provider who performed the spinal tap. -For nights or weekends, call or toll free and ask the hydrotreater operator the page the Neurology resident on-call. 2. If your headache is unusually severe regardless of bedrest or lasts more than two days 3. If you develop a fever 4 (more content not included)... Normal [facility] CSF MANUAL DIFFon 10-12-2022 Diff Total, CSF 57 cells counted [facility] Lymph%, CSF 91 % High 50 - 90 % [facility]%, CSF 9 % Low 10 - 50 % [facility] DIF TTL, CSF 57 cells counted Normal [facility] Comment on above: Order Comment: Speci men Type: CEREBROSPINAL FLUIDOrdering Facility: [facility] Address: [address] [place], [place] [id number] Result Comment: Less than 100 cells were counted due to low cellularity of the specimen; therefore, the total differential percentage may be subject to rounding error. Performed By: #### L [id number], 07462-0 ####[facility] LABCLIA [id number] [facility] [id number] [place] [address] [place] LYMPH%, CSF 91 % High 50-90 [facility] Comment on above: Order Comment: Speci men Type: CEREBROSPINAL FLUIDOrdering Facility: [facility] Address: [address] Performed By: #### L [id number], 53087-1 ####[facility] LABCLIA [id number] [place] [address] [place] MONO%, CSF 9 % Low 10-50 [facility] Comment on above: Order Comment: Speci men Type: CEREBROSPINAL FLUIDOrdering Facility: [facility] Address: [address] [place], [place] [address] Performed By: #### L [id number], 66209-4 ####[facility] LABCLIA [id number] [address] OF [facility] Cell count panel (CSF)on Clarity (CSF) Clear Clear [facility] Clarity (Unsp spec) Not Indicated Clear [facility] Color (CSF) Colorless Colorless [facility] Color (Spun CSF) Not Indicated Colorless [facility] CSF Tube Number Tube 1 [facility] RBC Manual cnt (CSF) [#/Vol] 3 cells/uL 0 - 5 cells/uL [facility] WBC Manual cnt (CSF) [#/Vol] 1 cells/uL 0 - 5 cells/uL [facility] Clarity (CSF) Clear Normal Clear [facility] Comment on above: Order Comment: Speci men Type: CEREBROSPINAL FLUIDOrdering Facility: [facility] Address: [address] [place], [place] [address] Performed By: #### L [id number], 21710-3 ####[facility] LABCLIA [id number] [address] [place] Clarity (Unsp spec) Not Indicated Normal Clear [facility] Comment on above: Order Comment: Speci men Type: CEREBROSPINAL FLUIDOrdering Facility: [facility] Address: [address] [place], [place] [address] Performed By: #### L [id number], 98303-9 ####[facility] LABCLIA [id number] [address] [place] Color (CSF) Colorless Normal Colorless [facility] Comment on above: Order Comment: Speci men Type: CEREBROSPINAL FLUIDOrdering Facility: [facility] Address: [address] Performed By: #### L [id number], 28935-2 ####[facility] LABCLIA [id number] [address] STATES OF [facility] Color (Spun CSF) Not Indicated Normal Colorless [facility] Comment on above: Order Comment: Speci men Type: CEREBROSPINAL FLUIDOrdering Facility: [facility] Address: [address] [place], [place] [address] Performed By: #### L [id number], 33386-7 ####[facility] LABCLIA [id number] [address] [place] CSF TUBE NUMBER Tube 1 Normal [facility] Comment on above: Order Comment: Speci men Type: CEREBROSPINAL FLUIDOrdering Facility: [facility] Address: [address] [place] [address] Performed By: #### L [id number], 87442-5 ####[facility] LABCLIA [id number] [address] [place] RBC Manual cnt (CSF) [#/Vol] 3 cells/uL Normal 0-5 [facility] Comment on above: Order Comment: Speci men Type: CEREBROSPINAL FLUIDOrdering Facility: [facility] Address: [address] [place] [address] Performed By: #### L ZQ4110, 61469-0 ####[facility] LABCLIA [id number] [address] WBC Manual cnt (CSF) [#/Vol] 1 cells/uL Normal 0-5 [facility] Comment on above: Order Comment: Speci men Type: CEREBROSPINAL FLUIDOrdering Facility: [facility] Address: [address] [place] [address] Performed By: #### L MD9805, 05814-9 ####[facility] LABIA [id number] [place] [address] [place] GLUCOSE CSFon 10-12-2022 Glucose (CSF) [Mass/Vol] 57 mg/dL 40 - 70 mg/dL [facility] Glucose CSF-mCncon 3 Glucose (CSF) [Mass/Vol] 57 mg/dL Normal 40-70 [facility] Comment on above: Order Comment: Speci men Type: CEREBROSPINAL FLUIDOrdering Facility: [facility] Address: [address] [place] [phone] Result Comment: Lumb ar CSF glucose values of healthy patients are approximately 60% of the plasma values and must always be compared with a concurrently measured plasma value for adequate clinical interpretation. References: 1. Glucose HK (GLUC3) [package insert V 12.0 Mongolian]. [facility], [place], [place]. October 2015. 2. Cali Alvarez, Gustavo H. (2015). Chapter 7: Glucose and Lactate. F. Eric edwards al.(eds.), Cerebrospinal Fluid in Clinical Neurology. [place]: [employer]. Performed By: #### 2 342-4, 1050-3 ####[facility] LABIA [id number] [place] [address] [place] PROTEIN CSFon 10-12-2022 Protein (CSF) [Mass/Vol] 32 mg/dL 15 - 45 mg/dL [facility] Prot CSF-mCncon 10-12-2022 Protein (CSF) [Mass/Vol] 32 mg/dL Normal 15-45 [facility] Comment on above: Order Comment: Speci men Type: CEREBROSPINAL FLUIDOrdering Facility: [facility] Address: [address] [place], [place] [address] Performed By: #### 2 342-4, 2880-3 ####[facility] LABIA [id number] [place] [address] [place] BLOODon 023 [facility] [place] CSFon 3 Albumin (CSF) [Mass/Vol] 18.8 mg/dL Normal 10.0-30.0 [facility] Comment on above: Order Comment: Speci men Type: CEREBROSPINAL FLUIDOrdering Facility: [facility] Address: [address] [place] [address] Performed By: #### T OURTCSF ####[facility] LABCLIA [id number] [place] [address] [place] Albumin [Mass/Vol] 4200 mg/dL Normal 5040-5525 [facility] Comment on above: Order Comment: Speci men Type: CEREBROSPINAL FLUIDOrdering Facility: [facility] Address: [address] [place] [address] Performed By: #### T OURTCSF ####[facility] LABCLIA [id number] [place] [address] [place] IgG (CSF) [Mass/Vol] 3.0 mg/dL Normal 1.0-3.0 [facility] Comment on above: Order Comment: Speci men Type: CEREBROSPINAL FLUIDOrdering Facility: [facility] Address: [address] [place] [address] Performed By: #### T OURTCSF ####[facility] LABCLIA [id number] [place] [address] [place] IgG [Mass/Vol] 1435 mg/dL Normal 700-1600 [facility] Comment on above: Order Comment: Speci men Type: CEREBROSPINAL FLUIDOrdering Facility: [facility] Address: [address] [place] [address] Performed By: #### T OURTCSF ####[facility] LABCLIA [id number] [place] [address] [place] IgG clearance/Albumin clearance (S+CSF) [Ratio] 0.47 Normal 0.00-0.61 [facility] Comment on above: Order Comment: Speci men Type: CEREBROSPINAL FLUIDOrdering Facility: [facility] Address: [address] [place] [address] Performed By: #### T OURTCSF ####[facility] [id number] [address] IgG synthesis rate Calc (S+CSF) [Mass/Time] 0.0 mg/day Normal 0.0-3.0 [facility] Comment on above: Order Comment: Speci men Type: CEREBROSPINAL FLUIDOrdering Facility: [facility] Address: [address] [place] [address] Performed By: #### T OURTCSF ####[facility] [id number] [address] IgG/Albumin (CSF) [Mass ratio] 0.16 Normal 0.06-0.17 [facility] Comment on above: Order Comment: Speci men Type: CEREBROSPINAL FLUIDOrdering Facility: [facility] Address: [address] [place] [address] Performed By: #### T OURTCSF ####[facility] [id number] [address] VDRL CSF-Titron 10-12-2022 Reagin Ab VDRL (CSF) [Titer] Non-Reactive Normal Nonreactive [facility] Comment on above: Order Comment: Speci men Type: CEREBROSPINAL FLUIDOrdering Facility: [facility] Address: [address] [place] [address] Result Comment: CSF VDRL test is used an aid in diagnosis of neurosyphilis. CSF VDRL detects non-treponemal antibodies and has lower sensitivity than CSF treponemal tests such as FTA, therefore a negative result cannot reliably rule out neurosyphilis. Clinical correlation is required. 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 Paper Goods - Other [3602] Prescriptions as of 07/22/2022 [...] Encounter Status:Closed by ANA JAFFE on 07/22/22 [facility] 05-07-2022 [facility] HNO ID: [id number] Author: Nicole Girard, rod puller Service: Radiology Author Type: Veterinary Technician Type: Allied Health Filed: 05/07/2022 1:54 PM [...] DATA: Not applicable SIGNED BY: Nicole Huffman, rod puller May 07, 2022 1:31 PM [facility] MRI 3D POST PROCESSINGon MRI 3D POST PROCESSING * * *Final Report * * * DATE OF EXAM: May 07 2022 1:47PM [facility] 0280 - MRI 3D POST PROCESSING / [...] = Focal Lesions 2 = Beginning of [place] 3 = Diffuse Involvement of Entire Region [...] results from the analysis charts for details. Moss Gatherer: MARISELA Transcribe Date/Time: May 07 2022 2:51P Dictated by : MANISH PRICE MD This examination was interpreted and the report reviewed and electronically signed by: MANISH PRICE MD on May 07 2022 3:06PM EST [id number] Normal [facility] MRI BRAIN WO IVCONon -18-2 022 MRI BRAIN WO IVCON * * *Final Report* * * DATE OF EXAM: May 07 2022 1:47PM [facility] 0294 - MRI BRAIN WO IVCON / PROCEDURE REASON: Cognitive changes * * * * Physician Interpretation * * * * EXAMINATION: MRI BRAIN WO IVCON, MRI 3D POST PROCESSING CLINICAL HISTORY: Cognitive changes TECHNIQUE: Axial FLORIDALMA FLAIR, FLORIDALMA T2, diffusion and susceptibility weighted imaging without contrast, using the ADNI dementia protocol and 3-D post-processing using the [employer] software at an independent workstation with concurrent physician supervision and images were created, reviewed and archived. MQ: [id number] COMPARISON: None RESULT: QUALITATIVE: Acute Intracranial Process: None. Chronic Intracranial Process: Mild microvascular ischemic change.. Age related white matter changes ([facility]) rating: White matter lesions: 1 Basal ganglia [...] = Focal Lesions 2 = Beginning of [place] 3 = Diffuse Involvement of Entire Region [...] results from the analysis charts for details. Moss Gatherer: MARISELA Transcribe Date/Time: May 07 2022 2:51P Dictated by : MANISH PRICE MD This examination was interpreted and the report reviewed and electronically signed by: MANISH PRICE MD on May 07 2022 3:06PM EST [id number] Normal [facility] No Panel Informationon 05-07 [facility] MRI BRAIN WO W CONon MRI BRAIN [...] by: LUCIE TOWNSEND Date: 2022-01-21 17:28 Normal [facility] US CAROTID ART BILon US CAROTID ART [...] by: LUCIE TOWNSEND Date: 2022-01-21 17:18 Normal [facility] H PYLORI ANTIBODY IGGon 07- H. PYLORI IGG ABS 0.72 Index Value Normal 0.00-0.79 [facility] Comment on above: Result Comment: Nega tive <0.80 Equivocal 0.80 - 0.89 Positive >0.89 Performed By: #### H PYLLC #### [facility] [address] [address] [address] Janell Marquez INSULINon 01-13-2022 Insulin 15.8 uIU/mL Normal 2.6-24.9 [facility] Comment on above: Performed By: #### T 7, TSH, CMP, LISANDRA, LIPA, LIPID #### [facility] [address] [address] [address] Janell Marquez VIT D 25-OH LABCORPon 2021 Vitamin D, 25-Hydroxy 29.7 ng/mL Critically low 30.0-100.0 [facility] Comment on above: Result Comment: Nelsy min D deficiency has been defined by the [place] of [employer] and an Endocrine Society practice guideline as a level of serum 25-OH vitamin D less than 20 ng/mL (1,2). The Endocrine Society went on to further define vitamin D insufficiency as a level between 21 and 29 ng/mL (2). 1. IOM ([place] of [employer]). 2010. Dietary reference intakes for calcium and D. [place]: The National Academies Press. 2. Kevin MF, Mey [place], Bharat SPENCER, et al. Evaluation, treatment, and prevention of vitamin D deficiency: an Endocrine Society clinical practice guideline. JCEM. 2010; 96(7):1911-30. Performed By: #### T 7, TSH, CMP, LISANDRA, LIPA, LIPID #### [facility] [address] [address] [address] Janell Marquez AMMONIAon 01-12-2022 Ammonia (P) [Mass/Vol] ug/dL Critically low 11-32 [facility] Comment on above: Performed By: #### T 7, TSH, CMP, LISANDRA, LIPA, LIPID #### [facility] [address] [address] [address] Janell Marquez AMYLASEon 01-12-2022 Amylase [Catalytic activity/Vol] 49 U/L Normal 25-115 [facility] Comment on above: Performed By: #### T 7, TSH, CMP, LISANDRA, LIPA, LIPID #### [facility] [address] [place] [address] Dr. Janell Marquez CBC AUTO DIFFon 01-12-2022 BASO # 0.0 103/ul Normal 0.0-0.1 [facility] Comment on above: Performed By: #### T 7, TSH, CMP, LISANDRA, LIPA, LIPID #### [facility] [address] [place] [address] Dr. Janell Marquez Basophils/100 WBC (Bld) 0.2 % Normal 0.2-2.0 [facility] Comment on above: Performed By: #### T 7, TSH, CMP, LISANDRA, LIPA, LIPID #### [facility] [address] [place] [address] Dr. Janell Marquez EO # 0.0 103/ul Normal 0.0-0.7 [facility] Comment on above: Performed By: #### T 7, TSH, CMP, LISANDRA, LIPA, LIPID #### [facility] [address] [place] [address] Dr. Janell Marquez Eosinophils/100 WBC (Bld) 0.3 % Critically low 0.9-7.0 [facility] Comment on above: Performed By: #### T 7, TSH, CMP, LISANDRA, LIPA, LIPID #### [facility] [address] [place] [address] Dr. Janell Marquez Erythrocyte distribution width (RBC) [Ratio] 16.0 % Critically high 11.0-15.0 [facility] Comment on above: Performed By: #### T 7, TSH, CMP, LISANDRA, LIPA, LIPID #### [facility] [address] [place] [address] Dr. Janell Marquez Hematocrit (Bld) [Volume fraction] 46.8 % Normal 42.0-54.0 [facility] Comment on above: Performed By: #### T 7, TSH, CMP, LISANDRA, LIPA, LIPID #### [facility] [address] [place] [address] Dr. Janell Marquez Hemoglobin (Bld) [Mass/Vol] 14.9 g/dL Normal 14.0-18.0 [facility] Comment on above: Performed By: #### T 7, TSH, CMP, LISANDRA, LIPA, LIPID #### [facility] [address] [address] [address] Janell Marquez IG # 0.01 10e3/ul Normal 0.00-0.03 [facility] Comment on above: Performed By: #### T 7, TSH, CMP, LISANDRA, LIPA, LIPID #### [facility] [address] [address] [address] Janell Marquez IG % 0.2 % Normal 0.0-0.5 [facility] Comment on above: Performed By: #### T 7, TSH, CMP, LISANDRA, LIPA, LIPID #### [facility] [address] [place] [address] Dr. Janell Marquez LYMPH # 1.0 103/ul Critically low 1.2-3.8 [facility] Comment on above: Performed By: #### T 7, TSH, CMP, LISANDRA, LIPA, LIPID #### [facility] [address] [place] [address] Dr. Janell Marquez Lymphocytes/100 WBC (Bld) 16.2 % Critically low 20.5-60.0 [facility] Comment on above: Performed By: #### T 7, TSH, CMP, LISANDRA, LIPA, LIPID #### [facility] [address] [place] [address] Dr. Janell Marquez MANUAL DIFF REQ NO Normal [facility] Comment on above: Performed By: #### T 7, TSH, CMP, LISANDRA, LIPA, LIPID #### [facility] [address] [place] [address] Dr. Janell Marquez MCH (RBC) [Entitic mass] 23.9 pg Critically low 25.9-34.0 [facility] Comment on above: Performed By: #### T 7, TSH, CMP, LISANDRA, LIPA, LIPID #### [facility] [address] [place] [address] Dr. Janell Marquez MCHC (RBC) [Mass/Vol] 31.8 g/dL Normal 29.9-35.2 [facility] Comment on above: Performed By: #### T 7, TSH, CMP, LISANDRA, LIPA, LIPID #### [facility] [address] [place] [address] Dr. Janell Marquez MCV (RBC) [Entitic vol] 75.0 fL Critically low 80.0-94.0 [facility] Comment on above: Performed By: #### T 7, TSH, CMP, LISANDRA, LIPA, LIPID #### [facility] [address] [place] [address] Dr. Janell Marquez MONO # 0.4 103/ul Normal 0.3-0.8 [facility] Comment on above: Performed By: #### T 7, TSH, CMP, LISANDRA, LIPA, LIPID #### [facility] [address] [place] [address] Dr. Janell Marquez Monocytes/100 WBC (Bld) 6.0 % Normal 1.7-12.0 [facility] Comment on above: Performed By: #### T 7, TSH, CMP, LISANDRA, LIPA, LIPID #### [facility] [address] [place] [address] Dr. Janell Marquez NEUT # 4.5 103/ul Normal 1.4-6.5 [facility] Comment on above: Performed By: #### T 7, TSH, CMP, LISANDRA, LIPA, LIPID #### [facility] [address] [place] [address] Dr. Janell Marquez Neutrophils/100 WBC (Bld) 77.1 % Critically high 43.0-75.0 [facility] Comment on above: Performed By: #### T 7, TSH, CMP, LISANDRA, LIPA, LIPID #### [facility] [address] [place] [address] Dr. Janell Marquez Platelet mean volume (Bld) [Entitic vol] 9.3 fL Critically low 9.5-13.5 [facility] Comment on above: Performed By: #### T 7, TSH, CMP, LISANDRA, LIPA, LIPID #### [facility] [address] [place] [address] Dr. Janell Marquez PLT 202 103/ul Normal 150-450 [facility] Comment on above: Performed By: #### T 7, TSH, CMP, LISANDRA, LIPA, LIPID #### [facility] [address] [address] [address] Janell Marquez RBC 6.24 106/ul Critically high 4.70-6.10 [facility] Comment on above: Performed By: #### T 7, TSH, CMP, LISANDRA, LIPA, LIPID #### [facility] [address] [address] [address] Janell Marquez WBC 5.9 103/ul Normal 4.0-11.0 [facility] Comment on above: Performed By: #### T 7, TSH, CMP, LISANDRA, LIPA, LIPID #### [facility] [address] [place] [address] Dr. Janell Marquez FREE THYROXINE INDEX T7on FTI 3.14 Normal 1.30-4.50 [facility] Comment on above: Performed By: #### T 7, TSH, CMP, LISANDRA, LIPA, LIPID #### [facility] [address] [address] [address] Janell Marquez T3U 32.0 % Critically low 33.0-40.0 [facility] Comment on above: Performed By: #### T 7, TSH, CMP, LISANDRA, LIPA, LIPID #### [facility] [address] [place] [address] Dr. Janell Marquez T4 [Mass/Vol] 9.80 ug/dL Normal 4.50-12.10 [facility] Comment on above: Performed By: #### T 7, TSH, CMP, LISANDRA, LIPA, LIPID #### [facility] [address] [place] [address] Dr. Janell Marquez GLYCOHEMOGLOBIN A1Con 2021 ADA RECOMMENDATION SEE BELOW Normal [facility] Comment on above: Result Comment: ADA RECOMMENDED LIMIT 4.0 - 6.0 ADA THERAPEUTIC TARGET < 7.0 ACTION SUGGESTED > 7.0 Performed By: #### A 1C #### [facility] [id number] Janell Marquez Glucose [Mass/Vol] 120 mg/dL Normal [facility] Comment on above: Performed By: #### A 1C #### [facility] [address] [address] [address] Janell Marquez HbA1c (Bld) [Mass fraction] 5.8 % Normal 4.5-6.2 [facility] Comment on above: Performed By: #### A 1C #### [facility] [address] [place] [address] Dr. Janell Marquez IRONon 01-12-2022 Iron [Mass/Vol] 70.0 ug/dL Normal 65.0-175.0 [facility] Comment on above: Performed By: #### T 7, TSH, CMP, LISANDRA, LIPA, LIPID #### [facility] [address] [place] [address] Dr. Janell Marquez LIPASEon 01-12-2022 Lipase [Catalytic activity/Vol] 72.0 U/L Critically low 73.0-393.0 [facility] Comment on above: Performed By: #### T 7, TSH, CMP, LISANDRA, LIPA, LIPID #### [facility] [address] [place], [place] [id number] Dr. Janell Marquez LIPID PROFILEon 01-12-2022 CHOL-HDL RATIO NORM SEE BELOW Normal [facility] Comment on above: Result Comment: 3.3 - 4.4 LOW RISK 4.4 - 7.1 AVERAGE RISK 7.1 - 11.0 MODERATE RISK >11.0 HIGH RISK Performed By: #### T 7, TSH, CMP, LISANDRA, LIPA, LIPID #### [facility] [address] [id number] [address] Janell Marquez Cholesterol [Mass/Vol] 220 mg/dL Critically high <=200 [facility] Comment on above: Performed By: #### T 7, TSH, CMP, LISANDRA, LIPA, LIPID #### [facility] [address] [address] [address] Janell Marquez Cholesterol in HDL [Mass/Vol] 47 mg/dL Normal 40-60 [facility] Comment on above: Performed By: #### T 7, TSH, CMP, LISANDRA, LIPA, LIPID #### [facility] [address] [address] [address] Janell Marquez Cholesterol in LDL [Mass/Vol] 157.4 mg/dL Normal [facility] Comment on above: Performed By: #### T 7, TSH, CMP, LISANDRA, LIPA, LIPID #### [facility] [address] [address] [address] Janell Marquez Cholesterol.total/Chol esterol in HDL [Mass ratio] 4.7 {ratio} Normal [facility] Comment on above: Performed By: #### T 7, TSH, CMP, LISANDRA, LIPA, LIPID #### [facility] [address] [place] [address] Dr. Janell Marquez HDL NORMAL > or = 60 mg/dl - LOW CARDIOVASCULAR RISK <40 mg/dl - HIGH CARDIOVASCULAR RISK Normal [facility] Comment on above: Performed By: #### T 7, TSH, CMP, LISANDRA, LIPA, LIPID #### [facility] [address] [place] [address] Dr. Janell Marquez LDL CALC NORMAL SEE BELOW Normal [facility] Comment on above: Result Comment: <100 mg/dl OPTIMAL 100 - 129 mg/dl NEAR OR ABOVE OPTIMAL 130 - 159 mg/dl BORDERLINE HIGH 160 - 189 mg/dl HIGH >190 mg/dl VERY HIGH Performed By: #### T 7, TSH, CMP, LISANDRA, LIPA, LIPID #### [facility] [address] [address] [address] Janell Marquez Triglyceride [Mass/Vol] 78 mg/dL Normal <=150 [facility] Comment on above: Performed By: #### T 7, TSH, CMP, LISANDRA, LIPA, LIPID #### [facility] [address] [address] [address] Janell Marquez VLDL CALC 15.6 mg/dL Normal [facility] Comment on above: Performed By: #### T 7, TSH, CMP, LISANDRA, LIPA, LIPID #### [facility] [address] [place] [address] Dr. Janell Marquez PROF 14(COMP METB)on 022 Albumin [Mass/Vol] 3.5 g/dL Normal 3.4-5.0 [facility] Comment on above: Performed By: #### T 7, TSH, CMP, LISANDRA, LIPA, LIPID #### [facility] [address] [place] [address] Dr. Janell Marquez Albumin/Globulin [Mass ratio] 0.9 {ratio} Normal [facility] Comment on above: Performed By: #### T 7, TSH, CMP, LISANDRA, LIPA, LIPID #### [facility] [address] [place] [address] Dr. Janell Marquez ALP [Catalytic activity/Vol] 69 U/L Normal 46-116 [facility] Comment on above: Performed By: #### T 7, TSH, CMP, LISANDRA, LIPA, LIPID #### [facility] [address] [place] [address] Dr. Janell Marquez ALT [Catalytic activity/Vol] 19 U/L Normal 16-63 [facility] Comment on above: Performed By: #### T 7, TSH, CMP, LISANDRA, LIPA, LIPID #### [facility] [address] [place] [address] Dr. Janell Marquez Anion gap [Moles/Vol] 12.1 mmol/L Normal [facility] Comment on above: Performed By: #### T 7, TSH, CMP, LISANDRA, LIPA, LIPID #### [facility] [address] [place] [address] Dr. Janell Marquez AST [Catalytic activity/Vol] 15 U/L Normal 15-37 [facility] Comment on above: Performed By: #### T 7, TSH, CMP, LISANDRA, LIPA, LIPID #### [facility] [address] [place] [address] Dr. Janell Marquez Bilirubin [Mass/Vol] 0.8 mg/dL Normal 0.2-1.0 [facility] Comment on above: Performed By: #### T 7, TSH, CMP, LISANDRA, LIPA, LIPID #### [facility] [address] [address] [address] Janell Marquez Calcium [Mass/Vol] 8.5 mg/dL Normal 8.5-10.1 [facility] Comment on above: Performed By: #### T 7, TSH, CMP, LISANDRA, LIPA, LIPID #### [facility] [address] [address] [address] Janell Marquez Chloride [Moles/Vol] 105 mmol/L Normal 98-107 [facility] Comment on above: Performed By: #### T 7, TSH, CMP, LISANDRA, LIPA, LIPID #### [facility] [address] [place] [address] Dr. Janell Marquez CO2 [Moles/Vol] 28.0 mmol/L Normal 21.0-32.0 [facility] Comment on above: Performed By: #### T 7, TSH, CMP, LISANDRA, LIPA, LIPID #### [facility] [address] [place] [address] Dr. Janell Marquez Creatinine [Mass/Vol] 1.11 mg/dL Normal 0.70-1.30 [facility] Comment on above: Performed By: #### T 7, TSH, CMP, LISANDRA, LIPA, LIPID #### [facility] [address] [place] [address] Dr. Janell Marquez EGFR-AF [place] >60 Normal >=60 [facility] Comment on above: Performed By: #### T 7, TSH, CMP, LISANDRA, LIPA, LIPID #### [facility] [address] [place] [address] Dr. Janell Marquez EGFR-NON AF [place] >60 Normal >=60 [facility] Comment on above: Performed By: #### T 7, TSH, CMP, LISANDRA, LIPA, LIPID #### [facility] [address] [place] [address] Dr. Janell Marquez Globulin (S) [Mass/Vol] 3.7 g/dL Normal [facility] Comment on above: Performed By: #### T 7, TSH, CMP, LISANDRA, LIPA, LIPID #### [facility] [address] [place] [address] Dr. Janell Marquez Glucose [Mass/Vol] 115 mg/dL Critically high 74-106 [facility] Comment on above: Performed By: #### T 7, TSH, CMP, LISANDRA, LIPA, LIPID #### [facility] [address] [place] [address] Dr. Janell Marquez Potassium [Moles/Vol] 4.1 mmol/L Normal 3.5-5.1 [facility] Comment on above: Performed By: #### T 7, TSH, CMP, LISANDRA, LIPA, LIPID #### [facility] [address] [place] [address] Dr. Janell Marquez Protein [Mass/Vol] 7.2 g/dL Normal 6.4-8.2 [facility] Comment on above: Performed By: #### T 7, TSH, CMP, LISANDRA, LIPA, LIPID #### [facility] [address] [place] [address] Dr. Janell Marquez Sodium [Moles/Vol] 141 mmol/L Normal 136-145 [facility] Comment on above: Performed By: #### T 7, TSH, CMP, LISANDRA, LIPA, LIPID #### [facility] [address] [place] [address] Dr. Janell Marquez Urea nitrogen [Mass/Vol] 16.0 mg/dL Normal 7.0-18.0 [facility] Comment on above: Performed By: #### T 7, TSH, CMP, LISANDRA, LIPA, LIPID #### [facility] [address] [place] [address] Dr. Janell Marquez Urea nitrogen/Creatinine [Mass ratio] 14.4 mg/mg Normal [facility] Comment on above: Performed By: #### T 7, TSH, CMP, LISANDRA, LIPA, LIPID #### [facility] [address] [place] [address] Dr. Janell Marquez TSHon 01-12-2022 TSH 1.412 uIU/mL Normal 0.358-3.740 [facility] Comment on above: Performed By: #### T 7, TSH, CMP, LISANDRA, LIPA, LIPID #### [facility] [address] [address] [address] Janell Marquez VIT B12 AND FOLATEon Cobalamin (Vitamin B12) [Mass/Vol] 411.0 pg/mL Normal 193.0-986.0 [facility] Comment on above: Performed By: #### T 7, TSH, CMP, LISANDRA, LIPA, LIPID #### [facility] [address] [address] [address] Janell Marquez FOLATE 11.10 ng/mL Normal 8.60-58.90 [facility] Comment on above: Performed By: #### T 7, TSH, CMP, LISANDRA, LIPA, LIPID #### [facility] [address] [address] [address] Janell Marquez BASIC METABOLIC PANELon Calcium [Mass/Vol] 8.3 mg/dL Low 8.6-10.3 [facility] Comment on above: Order Comment: No: D o not add to previous draw Performed By: #### 0 0071 #### [facility] [address] [place] [address], [place] Chloride [Moles/Vol] 104 mmol/L Normal 98-107 [facility] Comment on above: Order Comment: No: D o not add to previous draw Performed By: #### 0 0071 #### [facility] [address] [place] [address], [place] CO2 [Moles/Vol] 29 mmol/L Normal 21-31 [facility] Comment on above: Order Comment: No: D o not add to previous draw Performed By: #### 0 0071 #### [facility] [address] [place] [address], [place] Creatinine [Mass/Vol] 0.81 mg/dL Normal 0.70-1.30 [facility] Comment on above: Order Comment: No: D o not add to previous draw Performed By: #### 0 0071 #### [facility] [address] [place] [address], [place] GFR/1.73 sq M.predicted among blacks MDRD (S/P/Bld) [Vol rate/Area] mL/min/{1.73_m2} Normal >60 [facility] Comment on above: Order Comment: No: D o not add to previous draw Performed By: #### 0 0071 #### [facility] [address] [place] [address], [place] GFR/1.73 sq M.predicted among non-blacks MDRD (S/P/Bld) [Vol rate/Area] mL/min/{1.73_m2} Normal >60 [facility] Comment on above: Order Comment: No: D o not add to previous draw Performed By: #### 0 0071 #### [facility] [address] [place] [address], [place] Glucose [Mass/Vol] 144 mg/dL High 70-100 [facility] Comment on above: Order Comment: No: D o not add to previous draw Performed By: #### 0 0071 #### [facility] [address] [place] [address], [place] Potassium [Moles/Vol] 3.6 mmol/L Normal 3.5-5.1 [facility] Comment on above: Order Comment: No: D o not add to previous draw Performed By: #### 0 0071 #### [facility] [address] [place] [address], [place] Sodium [Moles/Vol] 139 mmol/L Normal 136-145 [facility] Comment on above: Order Comment: No: D o not add to previous draw Performed By: #### 0 0071 #### [facility] [address] [place] [address], [place] Urea nitrogen [Mass/Vol] 9 mg/dL Normal 7-25 [facility] Comment on above: Order Comment: No: D o not add to previous draw Performed By: #### 0 0071 #### [facility] [address] CBC COMPLETE BLOOD COUNTon 0 07-26-2020 Erythrocyte distribution width (RBC) [Ratio] 14.6 % Normal 11.5-15.0 [facility] Comment on above: Order Comment: No: D o not add to previous draw Performed By: #### 0 0071 #### [facility] [address] [place] [address], [facility] Hematocrit (Bld) [Volume fraction] 38.8 % Low 39.0-50.0 [facility] Comment on above: Order Comment: No: D o not add to previous draw Performed By: #### 0 0071 #### [facility] [address] [place] [address], [facility] Hemoglobin (Bld) [Mass/Vol] 12.1 g/dL Low 13.0-17.0 [facility] Comment on above: Order Comment: No: D o not add to previous draw Performed By: #### 0 0071 #### [facility] [address] [facility] [place] [address], [facility] MCH (RBC) [Entitic mass] 23.7 pg Low 27.0-33.0 [facility] Comment on above: Order Comment: No: D o not add to previous draw Performed By: #### 0 0071 #### [facility] [address] [place] [address], [facility] MCHC (RBC) [Mass/Vol] 31.2 g/dL Low 32.0-35.0 [facility] Comment on above: Order Comment: No: D o not add to previous draw Performed By: #### 0 0071 #### [facility] [address] [facility] [place] [address], [facility] MCV (RBC) [Entitic vol] 75.9 fL Low 82.0-98.0 [facility] Comment on above: Order Comment: No: D o not add to previous draw Performed By: #### 0 0071 #### [facility] [address] [place] [address], [facility] Nucleated RBC/100 WBC (Bld) [Ratio] 0 % Normal 0-0 [facility] Comment on above: Order Comment: No: D o not add to previous draw Performed By: #### 0 0071 #### [facility] [address] [facility] [place] [address], [facility] PLAT CNT 182 10*3/uL Normal 150-400 [facility] Comment on above: Order Comment: No: D o not add to previous draw Performed By: #### 0 0071 #### [facility] [address] [facility] [place] [address], [facility] RBC (Bld) [#/Vol] 5.11 10*6/uL Normal 4.20-5.70 [facility] Comment on above: Order Comment: No: D o not add to previous draw Performed By: #### 0 0071 #### [facility] [address] [facility] [place] [address], [facility] WBC (Bld) [#/Vol] 3.64 10*3/uL Low 4.00-10.60 [facility] Comment on above: Order Comment: No: D o not add to previous draw Performed By: #### 0 0071 #### [facility] [address] [facility] [place] [address], [facility] MAGNESIUM BLOODon 07-26-2020 Magnesium [Mass/Vol] 1.8 mg/dL Low 1.9-2.7 [facility] Comment on above: Order Comment: No: D o not add to previous draw Performed By: #### 1 0070, [id number] #### [facility] [address] [facility] [place] [address], [facility] BASIC METABOLIC PANELon Calcium [Mass/Vol] 8.4 mg/dL Low 8.6-10.3 [facility] Comment on above: Order Comment: No: D o not add to previous draw Performed By: #### 1 69, [id number] #### [facility] [address] [place] [address], [place] Chloride [Moles/Vol] 104 mmol/L Normal 98-107 [facility] Comment on above: Order Comment: No: D o not add to previous draw Performed By: #### 1 69, [id number] #### [facility] [address] [place] [address], [place] CO2 [Moles/Vol] 27 mmol/L Normal 21-31 [facility] Comment on above: Order Comment: No: D o not add to previous draw Performed By: #### 1 69, [id number] #### [facility] [address] [place] [address], [place] Creatinine [Mass/Vol] 0.83 mg/dL Normal 0.70-1.30 [facility] Comment on above: Order Comment: No: D o not add to previous draw Performed By: #### 1 69, [id number] #### [facility] [address] [place] [address], [place] GFR/1.73 sq M.predicted among blacks MDRD (S/P/Bld) [Vol rate/Area] mL/min/{1.73_m2} Normal >60 [facility] Comment on above: Order Comment: No: D o not add to previous draw Performed By: #### 1 69, [id number] #### [facility] [address] [place] [address], [place] GFR/1.73 sq M.predicted among non-blacks MDRD (S/P/Bld) [Vol rate/Area] mL/min/{1.73_m2} Normal >60 [facility] Comment on above: Order Comment: No: D o not add to previous draw Performed By: #### 1 69, [id number] #### [facility] [address] [place] [address], [place] Glucose [Mass/Vol] 162 mg/dL High 70-100 [facility] Comment on above: Order Comment: No: D o not add to previous draw Performed By: #### 1 69, [id number] #### [facility] [address] [place] [address], [place] Potassium [Moles/Vol] 3.4 mmol/L Low 3.5-5.1 [facility] Comment on above: Order Comment: No: D o not add to previous draw Performed By: #### 1 69, [id number] #### [facility] [address] [place] [address], [facility] Sodium [Moles/Vol] 137 mmol/L Normal 136-145 [facility] Comment on above: Order Comment: No: D o not add to previous draw Performed By: #### 1 69, [id number] #### [facility] [address] [place] [address], [facility] Urea nitrogen [Mass/Vol] 18 mg/dL Normal 7-25 [facility] Comment on above: Order Comment: No: D o not add to previous draw Performed By: #### 1 69, [id number] #### [facility] [address] [place] [id number], [facility] CBC COMPLETE BLOOD COUNTon 0 - Erythrocyte distribution width (RBC) [Ratio] 15.2 % High 11.5-15.0 [facility] Comment on above: Order Comment: No: D o not add to previous draw Performed By: #### 0 1 #### [facility] [address] [place] [address], [place] Hematocrit (Bld) [Volume fraction] 40.7 % Normal 39.0-50.0 [facility] Comment on above: Order Comment: No: D o not add to previous draw Performed By: #### 0 [id number] #### [facility] [address] [place] [id number], [place] Hemoglobin (Bld) [Mass/Vol] 12.7 g/dL Low 13.0-17.0 [facility] Comment on above: Order Comment: No: D o not add to previous draw Performed By: #### 0 0071 #### [facility] [address] [place] [address], [facility] MCH (RBC) [Entitic mass] 23.3 pg Low 27.0-33.0 [facility] Comment on above: Order Comment: No: D o not add to previous draw Performed By: #### 0 0071 #### [facility] [address] [place] [address], [facility] MCHC (RBC) [Mass/Vol] 31.2 g/dL Low 32.0-35.0 [facility] Comment on above: Order Comment: No: D o not add to previous draw Performed By: #### 0 0071 #### [facility] [address] [facility] [place] [address], [facility] MCV (RBC) [Entitic vol] 74.8 fL Low 82.0-98.0 [facility] Comment on above: Order Comment: No: D o not add to previous draw Performed By: #### 0 0071 #### [facility] [address] [facility] [place] [address], [facility] Nucleated RBC/100 WBC (Bld) [Ratio] 0 % Normal 0-0 [facility] Comment on above: Order Comment: No: D o not add to previous draw Performed By: #### 0 0071 #### [facility] [address] [place] [id number], [place] PLAT CNT 207 10*3/uL Normal 150-400 [facility] Comment on above: Order Comment: No: D o not add to previous draw Performed By: #### 0 0071 #### [facility] [address] [place] [id number], [facility] RBC (Bld) [#/Vol] 5.44 10*6/uL Normal 4.20-5.70 [facility] Comment on above: Order Comment: No: D o not add to previous draw Performed By: #### 0 0071 #### [facility] [address] [facility]. [address] WBC (Bld) [#/Vol] 3.05 10*3/uL Low 4.00-10.60 [facility] Comment on above: Order Comment: No: D o not add to previous draw Performed By: #### 0 0071 #### [facility] [address] [facility]. [address] MAGNESIUM BLOODon 07-25-2020 Magnesium [Mass/Vol] 1.8 mg/dL Low 1.9-2.7 [facility] Comment on above: Order Comment: No: D o not add to previous draw Performed By: #### 1 0070, 62317 #### [facility] [address] [facility]. [address] POC GLUCOSE LABon 07-25-2020 Glucose [Mass/Vol] 155 mg/dL High 70-100 [facility] Comment on above: Performed By: #### 0 0071, 60742 #### [facility] [address] *SARS-CoV-2 COVID-19on 07-24 SARS-CoV-2 (COVID-19) RNA LILLIANA+probe Ql (Unsp spec) Not detected Normal Not Detected [facility] Comment on above: Order Comment: No: D o not add to previous draw Performed By: #### 0 0071, 64364 #### [facility] [address] [facility]. [address] CBC W/DIFFon 07-24-2020 ABS IMM GRANS 0.0 10*3/uL Normal 0.0-0.2 [facility] Comment on above: Performed By: #### 0 0071 #### [facility] [address] [place] [address], [facility] ABS NEUTROPHILS 2.0 10*3/uL Normal 1.6-7.6 [facility] Comment on above: Performed By: #### 0 0071 #### [facility] [address] [facility] [address], [facility] Basophils (Bld) [#/Vol] 0.0 10*3/uL Normal 0.0-0.2 [facility] Comment on above: Performed By: #### 0 0071 #### [facility] [address] [facility] [place] [address], [facility] Basophils/100 WBC (Bld) 0.4 % Normal 0.0-1.0 [facility] Comment on above: Performed By: #### 0 0071 #### [facility] [address] [facility] [place] [address], [facility] Eosinophils (Bld) [#/Vol] 0.0 10*3/uL Normal 0.0-0.5 [facility] Comment on above: Performed By: #### 0 0071 #### [facility] [address] [place] [address], [facility] Eosinophils/100 WBC (Bld) 0.7 % Normal 0.0-6.0 [facility] Comment on above: Performed By: #### 0 0071 #### [facility] [address] [facility] [place] [address], [facility] Erythrocyte distribution width (RBC) [Ratio] 15.8 % High 11.5-15.0 [facility] Comment on above: Performed By: #### 0 0071 #### [facility] [address] [place] [address], [facility] Hematocrit (Bld) [Volume fraction] 45.5 % Normal 39.0-50.0 [facility] Comment on above: Performed By: #### 0 0071 #### [facility] [address] Hemoglobin (Bld) [Mass/Vol] 14.4 g/dL Normal 13.0-17.0 [facility] Comment on above: Performed By: #### 0 0071 #### [facility] [address] [place] [address], [facility] IMMATURE GRANS 0.4 % Normal 0.0-1.0 [facility] Comment on above: Performed By: #### 0 0071 #### [facility] [address] [place] [address], [facility] Lymphocytes (Bld) [#/Vol] 0.4 10*3/uL Low 1.2-4.0 [facility] Comment on above: Performed By: #### 0 0071 #### [facility] [address] [place] [address], [facility] Lymphocytes/100 WBC (Bld) 14.5 % Low 20.0-45.0 [facility] Comment on above: Performed By: #### 0 0071 #### [facility] [address] [place] [address], [facility] MCH (RBC) [Entitic mass] 23.7 pg Low 27.0-33.0 [facility] Comment on above: Performed By: #### 0 0071 #### [facility] [address] [place] [address], [facility] MCHC (RBC) [Mass/Vol] 31.6 g/dL Low 32.0-35.0 [facility] Comment on above: Performed By: #### 0 0071 #### [facility] [address] [place] [address], [facility] MCV (RBC) [Entitic vol] 75.0 fL Low 82.0-98.0 [facility] Comment on above: Performed By: #### 0 0071 #### [facility] [address] [place] [address], [facility] Monocytes (Bld) [#/Vol] 0.3 10*3/uL Normal 0.1-1.0 [facility] Comment on above: Performed By: #### 0 0071 #### [facility] [address] [place] [address], [facility] MONOS 12.3 % High 5.0-12.0 [facility] Comment on above: Performed By: #### 0 0071 #### [facility] [address] [place] [address], [facility] Neutrophils/100 WBC (Bld) 71.7 % Normal 40.0-72.0 [facility] Comment on above: Performed By: #### 0 0071 #### [facility] [address] [facility] [place] [address], [facility] Nucleated RBC/100 WBC (Bld) [Ratio] 0 % Normal 0-0 [facility] Comment on above: Performed By: #### 0 0071 #### [facility] [address] [facility] [place] [address], [facility] PLAT CNT 225 10*3/uL Normal 150-400 [facility] Comment on above: Performed By: #### 0 0071 #### [facility] [address] [facility] [address], [facility] RBC (Bld) [#/Vol] 6.07 10*6/uL High 4.20-5.70 [facility] Comment on above: Performed By: #### 0 0071 #### [facility] [address] [facility] [place] [place] [id number], [facility] WBC (Bld) [#/Vol] 2.76 10*3/uL Low 4.00-10.60 [facility] Comment on above: Performed By: #### 0 0071 #### [facility] [address] [place] [id number], [facility] COMP METABOLIC PANELon 07-24 Albumin [Mass/Vol] 3.7 g/dL Normal 3.5-5.7 [facility] Comment on above: Performed By: #### 3 5200, 29038, 79981 #### [facility] [address] [place] [address], [place] ALKALINE PHOSPH 58 IU/L Normal 34-104 [facility] Comment on above: Performed By: #### 3 5200, 15191, 60559 #### [facility] [address] [place] [address], [place] ALT [Catalytic activity/Vol] 12 U/L Normal 7-52 [facility] Comment on above: Performed By: #### 3 5200, 91267, 77398 #### [facility] [address] [place] [address], [place] AST [Catalytic activity/Vol] 15 U/L Normal 13-39 [facility] Comment on above: Performed By: #### 3 5200, 61277, 14652 #### [facility] [address] [place] [address], [place] Bilirubin [Mass/Vol] 1.3 mg/dL High 0.3-1.0 [facility] Comment on above: Performed By: #### 3 5200, 46171, 23937 #### [facility] [address] [place] [address], [place] Calcium [Mass/Vol] 8.7 mg/dL Normal 8.6-10.3 [facility] Comment on above: Performed By: #### 3 5200, 28589, 25474 #### [facility] [address] [place] [address], [place] Chloride [Moles/Vol] 99 mmol/L Normal 98-107 [facility] Comment on above: Performed By: #### 3 5200, 61510, 49240 #### [facility] [address] [place] [address], [place] CO2 [Moles/Vol] 25 mmol/L Normal 21-31 [facility] Comment on above: Performed By: #### 3 5200, 04262, 76129 #### [facility] [address] [place] [address], [place] Creatinine [Mass/Vol] 1.01 mg/dL Normal 0.70-1.30 [facility] Comment on above: Performed By: #### 3 5200, 89689, 10995 #### [facility] [address] [place] [address], [place] GFR/1.73 sq M.predicted among blacks MDRD (S/P/Bld) [Vol rate/Area] mL/min/{1.73_m2} Normal >60 [facility] Comment on above: Performed By: #### 3 5200, 00320, 35424 #### [facility] [address] [place] [address], [place] GFR/1.73 sq M.predicted among non-blacks MDRD (S/P/Bld) [Vol rate/Area] mL/min/{1.73_m2} Normal >60 [facility] Comment on above: Performed By: #### 3 5200, 04738, 11099 #### [facility] [address] [place] [address], [place] Glucose [Mass/Vol] 142 mg/dL High 70-100 [facility] Comment on above: Performed By: #### 3 5200, 93822, 42522 #### [facility] [address] [place] [address], [place] Potassium [Moles/Vol] 3.9 mmol/L Normal 3.5-5.1 [facility] Comment on above: Performed By: #### 3 5200, 98087, 31627 #### [facility] [address] [place] [address], [place] Protein [Mass/Vol] 6.6 g/dL Normal 6.0-8.3 [facility] Comment on above: Performed By: #### 3 5200, 09857, [address]382 #### [address] Sodium [Moles/Vol] 134 mmol/L Low 136-145 [facility] Comment on above: Performed By: #### 3 5200, 73039, 02825 #### [id number] [place] [address] Urea nitrogen [Mass/Vol] 20 mg/dL Normal 7-25 [facility] Comment on above: Performed By: #### 3 5200, 62731, 92275 #### [address] [facility]BDOMEN AND PELVIS W IV CONTRAST [facility] Department of Radiology [address] [place] [id number] Patient Name: NOÉ JEFFERY : 1965 Sex: M Age: Race: Other Pt. Location: [facility] Patient Status: E Ordered Date: 07/24/2020 [...] achievable. Electronically signed: Miguelito Balderas. Transcribed by: [email or web address], User Resident: Electronically Signed by: MIGUELITO BALDERAS @ 07/24/2020 04:14 PM Normal [facility] Comment on above: Order Comment: No: D o not add to previous draw LACTATE BLOODon 07-24-2020 Lactate [Moles/Vol] 1.0 mmol/L Normal 0.5-2.2 [facility] Comment on above: Performed By: #### 1 0054 #### [address] LIPASE BLOODon 07-24-2020 LIPASE 7 Units/L Low 11-82 [facility] Comment on above: Performed By: #### 3 5200, 09690, 18979 #### [facility] [address] PORTABLE CHEST 1 VIEWon PORTABLE CHEST 1 VIEW [facility] Department of Radiology [address] [place] [id number] Patient Name: NOÉ JEFFERY : 1965 Sex: M Age: Race: Other Pt. Location: [facility] Patient Status: E Ordered Date: 07/24/2020 [...] indicated. Electronically signed: Miguelito Balderas. Transcribed by: [email or web address], User Resident: Electronically Signed by: MIGUELITO BALDERAS @ 07/24/2020 03:58 PM Normal [facility] Comment on above: Order Comment: No: D o not add to previous draw TROPONIN-Ion 07-24-2020 Troponin I.cardiac [Mass/Vol] 0.00 ng/mL Normal 0.00-0.04 [facility] Comment on above: Result Comment: REFE RENCE RANGES: 0.00 - 0.14 ng/ml NEGATIVE 0.15 - 0.25 ng/ml INDETERMINATE > 0.25 ng/ml INDICATIVE OF AN M.I. Performed By: #### 3 5200, 28423, 32086 #### [facility] [address] [facility] [address], [facility] URINALYSIS REFLEXon 07-24-19 21 Appearance (U) CLEAR Normal CLEAR [facility] Comment on above: Order Comment: No: D o not add to previous draw Performed By: #### 0 0071, 26512 #### [facility] [address] [place] [address], [facility] Bilirubin Ql (U) Negative Normal NEGATIVE [facility] Comment on above: Order Comment: No: D o not add to previous draw Performed By: #### 0 0071, 65693 #### [facility] [address] [place] [address], [place] Color (U) ANEL Abnormal YELLOW [facility] Comment on above: Order Comment: No: D o not add to previous draw Performed By: #### 0 0071, 08712 #### [facility] [address] [place] [address], [place] Glucose Ql (U) Negative Normal NEGATIVE [facility] Comment on above: Order Comment: No: D o not add to previous draw Performed By: #### 0 0071, 70169 #### [facility] [address] [place] [address], [place] Hemoglobin Ql (U) Negative Normal NEGATIVE [facility] Comment on above: Order Comment: No: D o not add to previous draw Performed By: #### 0 0071, 58620 #### [facility] [address] [place] [address], [place] KETONE 20 mg/dL Abnormal NEGATIVE [facility] Comment on above: Order Comment: No: D o not add to previous draw Performed By: #### 0 0071, 57265 #### [facility] [address] [place] [address], [place] LEUK DINO Negative Normal NEGATIVE [facility] Comment on above: Order Comment: No: D o not add to previous draw Performed By: #### 0 0071, 98235 #### [facility] [address] [place] [address], [place] MICRO NOT DONE Normal [facility] Comment on above: Order Comment: No: D o not add to previous draw Result Comment: Micr oscopics not performed on urines with negative chemical reactions unless requested in original order Performed By: #### 0 0071, 28516 #### [facility] [address] [place] [address], [place] Nitrite Ql (U) Negative Normal NEGATIVE [facility] Comment on above: Order Comment: No: D o not add to previous draw Performed By: #### 0 0071, 43156 #### [facility] [address] [place] [address], [facility] pH (U) 5.0 [pH] Normal 5.0-8.0 [facility] Comment on above: Order Comment: No: D o not add to previous draw Performed By: #### 0 0071, 94243 #### [facility] [address] [place] [address], [facility] Protein Ql (U) Negative Normal NEGATIVE [facility] Comment on above: Order Comment: No: D o not add to previous draw Performed By: #### 0 0071, 17955 #### [facility] [address] [place] [id number], [facility] SPEC GRAV 1.084 High 1.015-1.020 [facility] Comment on above: Order Comment: No: D o not add to previous draw Result Comment: DONE BY DILUTION Performed By: #### 0 0071, 27019 #### [facility] [address] [place] [address], [facility] BASIC METABOLIC PANELon 02-0 Calcium [Mass/Vol] 8.8 mg/dL Normal 8.6-10.3 [facility] Comment on above: Order Comment: No: D o not add to previous draw Performed By: #### 0 0071, 75501 #### [facility] [address] [place] [address], [place] Chloride [Moles/Vol] 103 mmol/L Normal 98-107 [facility] Comment on above: Order Comment: No: D o not add to previous draw Performed By: #### 0 0071, 83167 #### [facility] [address] [place] [address], [place] CO2 [Moles/Vol] 27 mmol/L Normal 21-31 [facility] Comment on above: Order Comment: No: D o not add to previous draw Performed By: #### 0 0071, 58973 #### [facility] [address] [place] [address], [place] Creatinine [Mass/Vol] 0.87 mg/dL Normal 0.70-1.30 [facility] Comment on above: Order Comment: No: D o not add to previous draw Performed By: #### 0 0071, 24120 #### [facility] [address] [place] [address], [place] GFR/1.73 sq M.predicted among blacks MDRD (S/P/Bld) [Vol rate/Area] mL/min/{1.73_m2} Normal >60 [facility] Comment on above: Order Comment: No: D o not add to previous draw Performed By: #### 0 0071, 38789 #### [facility] [address] [place] [address], [place] GFR/1.73 sq M.predicted among non-blacks MDRD (S/P/Bld) [Vol rate/Area] mL/min/{1.73_m2} Normal >60 [facility] Comment on above: Order Comment: No: D o not add to previous draw Performed By: #### 0 0071, 36795 #### [facility] [address] [place] [address], [place] Glucose [Mass/Vol] 156 mg/dL High 70-100 [facility] Comment on above: Order Comment: No: D o not add to previous draw Performed By: #### 0 0071, 04091 #### [facility] [address] [place] [address], [place] Potassium [Moles/Vol] 3.9 mmol/L Normal 3.5-5.1 [facility] Comment on above: Order Comment: No: D o not add to previous draw Performed By: #### 0 0071, 21650 #### [facility] [address] [place] [address], [place] Sodium [Moles/Vol] 136 mmol/L Normal 136-145 [facility] Comment on above: Order Comment: No: D o not add to previous draw Performed By: #### 0 0071, 10801 #### [facility] [address] [place] [address], [facility] Urea nitrogen [Mass/Vol] 8 mg/dL Normal 7-25 [facility] Comment on above: Order Comment: No: D o not add to previous draw Performed By: #### 0 0071, 55113 #### [facility] [address] [place] [address], [facility] CBC COMPLETE BLOOD COUNTon 0 - Erythrocyte distribution width (RBC) [Ratio] 15.1 % High 11.5-15.0 [facility] Comment on above: Order Comment: No: D o not add to previous draw Performed By: #### 0 0071 #### [facility] [address] [place] [address], [facility] Hematocrit (Bld) [Volume fraction] 44.1 % Normal 39.0-50.0 [facility] Comment on above: Order Comment: No: D o not add to previous draw Performed By: #### 0 0071 #### [facility] [address] [place] [address], [facility] Hemoglobin (Bld) [Mass/Vol] 13.4 g/dL Normal 13.0-17.0 [facility] Comment on above: Order Comment: No: D o not add to previous draw Performed By: #### 0 0071 #### [facility] [address] [place] [address], [facility] MCH (RBC) [Entitic mass] 23.1 pg Low 27.0-33.0 [facility] Comment on above: Order Comment: No: D o not add to previous draw Performed By: #### 0 0071 #### [facility] [address] [place] [address], [facility] MCHC (RBC) [Mass/Vol] 30.4 g/dL Low 32.0-35.0 [facility] Comment on above: Order Comment: No: D o not add to previous draw Performed By: #### 0 0071 #### [facility] [address] [place] [address], [facility] MCV (RBC) [Entitic vol] 76.0 fL Low 82.0-98.0 [facility] Comment on above: Order Comment: No: D o not add to previous draw Performed By: #### 0 0071 #### [facility] [address] [facility] [place] [address], [facility] Nucleated RBC/100 WBC (Bld) [Ratio] 0 % Normal 0-0 [facility] Comment on above: Order Comment: No: D o not add to previous draw Performed By: #### 0 0071 #### [facility] [address] [facility] [address], [facility] PLAT CNT 190 10*3/uL Normal 150-400 [facility] Comment on above: Order Comment: No: D o not add to previous draw Performed By: #### 0 0071 #### [facility] [address] [facility] [place] [address], [facility] RBC (Bld) [#/Vol] 5.80 10*6/uL High 4.20-5.70 [facility] Comment on above: Order Comment: No: D o not add to previous draw Performed By: #### 0 0071 #### [facility] [address] [facility] [place] [place] [id number], [facility] WBC (Bld) [#/Vol] 7.98 10*3/uL Normal 4.00-10.60 [facility] Comment on above: Order Comment: No: D o not add to previous draw Performed By: #### 0 0071 #### [facility] [address] [place] [address], [facility] MAGNESIUM BLOODon 07-23-2020 Magnesium [Mass/Vol] 1.9 mg/dL Normal 1.9-2.7 [facility] Comment on above: Order Comment: No: D o not add to previous draw Performed By: #### 0 0071, 47008 #### [facility] [address] [place] [address], [place] POC GLUCOSE LABon 07-23-2020 Glucose [Mass/Vol] 140 mg/dL High 70-100 [facility] Comment on above: Performed By: #### 0 0071 #### [facility] [address] [place] [address], [place] Glucose [Mass/Vol] 155 mg/dL High 70-100 [facility] Comment on above: Performed By: #### 0 0071, 63920 #### [facility] [address] [place] [address], [place] Glucose [Mass/Vol] 164 mg/dL High 70-100 [facility] Comment on above: Performed By: #### 0 0071 #### [facility] [address] [place] [address], [place] BASIC METABOLIC PANELon Calcium [Mass/Vol] 8.3 mg/dL Low 8.6-10.3 [facility] Comment on above: Order Comment: No: D o not add to previous draw Performed By: #### 0 0071, 02218 #### [facility] [address] [place] [address], [place] Chloride [Moles/Vol] 103 mmol/L Normal 98-107 [facility] Comment on above: Order Comment: No: D o not add to previous draw Performed By: #### 0 0071, 36214 #### [facility] [address] [place] [address], [place] CO2 [Moles/Vol] 26 mmol/L Normal 21-31 [facility] Comment on above: Order Comment: No: D o not add to previous draw Performed By: #### 0 0071, 82112 #### [facility] [address] [place] [address], [place] Creatinine [Mass/Vol] 0.90 mg/dL Normal 0.70-1.30 [facility] Comment on above: Order Comment: No: D o not add to previous draw Performed By: #### 0 0071, 97973 #### [facility] [address] [place] [address], [place] GFR/1.73 sq M.predicted among blacks MDRD (S/P/Bld) [Vol rate/Area] mL/min/{1.73_m2} Normal >60 [facility] Comment on above: Order Comment: No: D o not add to previous draw Performed By: #### 0 0071, 30657 #### [facility] [address] [place] [address], [place] GFR/1.73 sq M.predicted among non-blacks MDRD (S/P/Bld) [Vol rate/Area] mL/min/{1.73_m2} Normal >60 [facility] Comment on above: Order Comment: No: D o not add to previous draw Performed By: #### 0 0071, 31124 #### [facility] [address] [place] [address], [place] Glucose [Mass/Vol] 166 mg/dL High 70-100 [facility] Comment on above: Order Comment: No: D o not add to previous draw Performed By: #### 0 0071, 25500 #### [facility] [address] [place] [address], [place] Potassium [Moles/Vol] 4.1 mmol/L Normal 3.5-5.1 [facility] Comment on above: Order Comment: No: D o not add to previous draw Performed By: #### 0 0071, 28583 #### [facility] [address] [place] [address], [place] Sodium [Moles/Vol] 136 mmol/L Normal 136-145 [facility] Comment on above: Order Comment: No: D o not add to previous draw Performed By: #### 0 0071, 06018 #### [facility] [address] Urea nitrogen [Mass/Vol] 12 mg/dL Normal 7-25 [facility] Comment on above: Order Comment: No: D o not add to previous draw Performed By: #### 0 0071, 56981 #### [facility] [address] [facility] [address] CBC COMPLETE BLOOD COUNTon - Erythrocyte distribution width (RBC) [Ratio] 14.9 % Normal 11.5-15.0 [facility] Comment on above: Order Comment: No: D o not add to previous draw Performed By: #### 0 0071, 30687 #### [facility] [address] [facility] [place] [address] Hematocrit (Bld) [Volume fraction] 42.8 % Normal 39.0-50.0 [facility] Comment on above: Order Comment: No: D o not add to previous draw Performed By: #### 0 0071, [id number] #### [facility] [address] Hemoglobin (Bld) [Mass/Vol] 13.3 g/dL Normal 13.0-17.0 [facility] Comment on above: Order Comment: No: D o not add to previous draw Performed By: #### 0 0071, [id number] #### [facility] [address] [address], [facility] MCH (RBC) [Entitic mass] 23.4 pg Low 27.0-33.0 [facility] Comment on above: Order Comment: No: D o not add to previous draw Performed By: #### 0 0071, [id number] #### [facility] [address] MCHC (RBC) [Mass/Vol] 31.1 g/dL Low 32.0-35.0 [facility] Comment on above: Order Comment: No: D o not add to previous draw Performed By: #### 0 0071, [id number] #### [facility] [address] [facility] [place] [address], [facility] MCV (RBC) [Entitic vol] 75.2 fL Low 82.0-98.0 [facility] Comment on above: Order Comment: No: D o not add to previous draw Performed By: #### 0 0071, [id number] #### [facility] [address] [place] [address], [facility] Nucleated RBC/100 WBC (Bld) [Ratio] 0 % Normal 0-0 [facility] Comment on above: Order Comment: No: D o not add to previous draw Performed By: #### 0 0071, [id number] #### [facility] [address] [place] [address], [facility] PLAT CNT 211 10*3/uL Normal 150-400 [facility] Comment on above: Order Comment: No: D o not add to previous draw Performed By: #### 0 0071, [id number] #### [facility] [address] [facility]. [place] [id number], [facility] RBC (Bld) [#/Vol] 5.69 10*6/uL Normal 4.20-5.70 [facility] Comment on above: Order Comment: No: D o not add to previous draw Performed By: #### 0 0071, [id number] #### [facility] [address] [facility]. [place] [id number], [facility] WBC (Bld) [#/Vol] 8.55 10*3/uL Normal 4.00-10.60 [facility] Comment on above: Order Comment: No: D o not add to previous draw Performed By: #### 0 0071, [id number] #### [facility] [address] [place] [address], [facility] MAGNESIUM BLOODon 07-22-2020 Magnesium [Mass/Vol] 2.0 mg/dL Normal 1.9-2.7 [facility] Comment on above: Order Comment: No: D o not add to previous draw Performed By: #### 0 0071, [id number] #### [facility] [address] [place] [address], [facility] Operative Reporton Operative Report MR#: [id number] [facility] Pt. Name: Noé Jeffery Room #: [id number] Discharge Date: Birthdate: 1965 OPERATIVE REPORT DATE [...] Izaguirre M.D. Date Trans: 07/21/2020 10:04 P/patricia [id number] cc: Paul Lopez M.D. [address] [id number] Normal [facility] POC GLUCOSE LABon 07-22-2020 Glucose [Mass/Vol] 142 mg/dL High 70-100 [facility] Comment on above: Performed By: #### 0 0071, [id number] #### [facility] [address] [place] [address], [place] Glucose [Mass/Vol] 113 mg/dL High 70-100 [facility] Comment on above: Performed By: #### 0 0071, [id number] #### [facility] [address] [place] [address], [place] Glucose [Mass/Vol] 153 mg/dL High 70-100 [facility] Comment on above: Performed By: #### 0 0071, [id number] #### [facility] [address] [place] [address], [place] Glucose [Mass/Vol] 127 mg/dL High 70-100 [facility] Comment on above: Performed By: #### 0 0071, [id number] #### [facility] [address] [place] [address], [place] Glucose [Mass/Vol] 176 mg/dL High 70-100 [facility] Comment on above: Performed By: #### 0 0071 #### [facility] [address] [place] [address], [place] *MRSA/MSSA DNA NASALon 07-21 *MRSA/MSSA DNA NASAL Clinical Report: (D) Specimen: NASAL SWAB Collected: 07/21/2020 00:00 Status: Final Last Updated: 07/21/2020 15:28 (1) No collection time noted on specimen or requisition. The collection time recorded is the time of receipt in the lab. MSSA DNA (Final) Methicillin Susceptible Staphylococcus aureus DNA Detected MRSA DNA (Final) Negative Normal [facility] Comment on above: Order Comment: No: D o not add to previous draw Performed By: #### 0 0071, [id number] #### [facility] [address] [place] [address], [facility] POC GLUCOSE LABon 07-21-2020 Glucose [Mass/Vol] 168 mg/dL High 70-100 [facility] Comment on above: Performed By: #### 0 0071 #### [facility] [address] [place] [address], [place] Glucose [Mass/Vol] 211 mg/dL High 70-100 [facility] Comment on above: Performed By: #### 0 0071, [id number] #### [facility] [address] [place] [address], [place] Glucose [Mass/Vol] 117 mg/dL High 70-100 [facility] Comment on above: Performed By: #### 0 0071, [id number] #### [facility] [address] [place] [address], [facility] *SARS-CoV-2 COVID-19on 07-18 SARS-CoV-2 (COVID-19) RNA LILLIANA+probe Ql (Unsp spec) Not detected Normal Not Detected [facility] Comment on above: Order Comment: No: D o not add to previous draw Performed By: #### 0 0071, [id number] #### [facility] [address] [place] [address], [place] BASIC METABOLIC PANELon 06-21 Calcium [Mass/Vol] 9.2 mg/dL Normal 8.6-10.3 [facility] Comment on above: Performed By: #### 0 0071 #### [facility] [address] [place] [address], [place] Chloride [Moles/Vol] 100 mmol/L Normal 98-107 [facility] Comment on above: Performed By: #### 0 0071 #### [facility] [address] [place] [address], [place] CO2 [Moles/Vol] 30 mmol/L Normal 21-31 [facility] Comment on above: Performed By: #### 0 0071 #### [facility] [address] [place] [address], [place] Creatinine [Mass/Vol] 1.01 mg/dL Normal 0.70-1.30 [facility] Comment on above: Performed By: #### 0 0071 #### [facility] [address] [place] [address], [place] GFR/1.73 sq M.predicted among blacks MDRD (S/P/Bld) [Vol rate/Area] mL/min/{1.73_m2} Normal >60 [facility] Comment on above: Performed By: #### 0 0071 #### [facility] [address] [place] [address], [place] GFR/1.73 sq M.predicted among non-blacks MDRD (S/P/Bld) [Vol rate/Area] mL/min/{1.73_m2} Normal >60 [facility] Comment on above: Performed By: #### 0 0071 #### [facility] [address] [place] [address], [place] Glucose [Mass/Vol] 121 mg/dL High 70-100 [facility] Comment on above: Performed By: #### 0 0071 #### [facility] [address] [place] [address], [place] Potassium [Moles/Vol] 4.4 mmol/L Normal 3.5-5.1 [facility] Comment on above: Performed By: #### 0 0071 #### [facility] [address] [place] [address], [place] Sodium [Moles/Vol] 135 mmol/L Low 136-145 [facility] Comment on above: Performed By: #### 0 0071 #### [facility] [address] [place] [address], [place] Urea nitrogen [Mass/Vol] 14 mg/dL Normal 7-25 [facility] Comment on above: Performed By: #### 0 0071 #### [facility] [address] [facility] [place] [address], [facility] CBC W/DIFFon 07-18-2020 ABS IMM GRANS 0.0 10*3/uL Normal 0.0-0.2 [facility] Comment on above: Performed By: #### 0 0071 #### [facility] [address] [facility] [place] [address], [facility] ABS NEUTROPHILS 2.5 10*3/uL Normal 1.6-7.6 [facility] Comment on above: Performed By: #### 0 0071 #### [facility] [address] [facility] [place] [address], [facility] Basophils (Bld) [#/Vol] 0.0 10*3/uL Normal 0.0-0.2 [facility] Comment on above: Performed By: #### 0 0071 #### [facility] [address] [facility] [place] [address], [facility] Basophils/100 WBC (Bld) 0.9 % Normal 0.0-1.0 [facility] Comment on above: Performed By: #### 0 0071 #### [facility] [address] [facility] [place] [address], [facility] Eosinophils (Bld) [#/Vol] 0.1 10*3/uL Normal 0.0-0.5 [facility] Comment on above: Performed By: #### 0 0071 #### [facility] [address] [facility] [place] [address], [facility] Eosinophils/100 WBC (Bld) 1.2 % Normal 0.0-6.0 [facility] Comment on above: Performed By: #### 0 0071 #### [facility] [address] [facility] [place] [address], [facility] Erythrocyte distribution width (RBC) [Ratio] 14.8 % Normal 11.5-15.0 [facility] Comment on above: Performed By: #### 0 0071 #### [facility] [address] [facility] [address] Hematocrit (Bld) [Volume fraction] 47.6 % Normal 39.0-50.0 [facility] Comment on above: Performed By: #### 0 0071 #### [facility] [address] [facility]. [address] Hemoglobin (Bld) [Mass/Vol] 14.5 g/dL Normal 13.0-17.0 [facility] Comment on above: Performed By: #### 0 0071 #### [facility] [address] IMMATURE GRANS 0.2 % Normal 0.0-1.0 [facility] Comment on above: Performed By: #### 0 0071 #### [facility] [address] Lymphocytes (Bld) [#/Vol] 1.4 10*3/uL Normal 1.2-4.0 [facility] Comment on above: Performed By: #### 0 0071 #### [facility] [address] Lymphocytes/100 WBC (Bld) 32.9 % Normal 20.0-45.0 [facility] Comment on above: Performed By: #### 0 0071 #### [facility] [address] MCH (RBC) [Entitic mass] 23.2 pg Low 27.0-33.0 [facility] Comment on above: Performed By: #### 0 0071 #### [facility] [address] MCHC (RBC) [Mass/Vol] 30.5 g/dL Low 32.0-35.0 [facility] Comment on above: Performed By: #### 0 0071 #### [facility] [address] MCV (RBC) [Entitic vol] 76.0 fL Low 82.0-98.0 [facility] Comment on above: Performed By: #### 0 0071 #### [facility] [address] [place] [address], [facility] Monocytes (Bld) [#/Vol] 0.3 10*3/uL Normal 0.1-1.0 [facility] Comment on above: Performed By: #### 0 0071 #### [facility] [address] MONOS 7.5 % Normal 5.0-12.0 [facility] Comment on above: Performed By: #### 0 0071 #### [facility] [address] Neutrophils/100 WBC (Bld) 57.3 % Normal 40.0-72.0 [facility] Comment on above: Performed By: #### 0 0071 #### [facility] [address] Nucleated RBC/100 WBC (Bld) [Ratio] 0 % Normal 0-0 [facility] Comment on above: Performed By: #### 0 0071 #### [facility] [address] PLAT CNT 222 10*3/uL Normal 150-400 [facility] Comment on above: Performed By: #### 0 0071 #### [facility] [address] [place] [address], [facility] RBC (Bld) [#/Vol] 6.26 10*6/uL High 4.20-5.70 [facility] Comment on above: Performed By: #### 0 0071 #### [facility] [address] [facility] [address] WBC (Bld) [#/Vol] 4.28 10*3/uL Normal 4.00-10.60 [facility] Comment on above: Performed By: #### 0 0071 #### [facility] [address] [facility] [address] PROTHROMBIN TIMEon INR Coag (PPP) [Relative time] 0.95 {INR} Normal 0.91-1.16 [facility] Comment on above: Result Comment: [...] CHEST 1995;108:[id number]. Performed By: #### 0 0071, [id number] #### [facility] [address] [address], [facility] PT Coag (PPP) [Time] 12.7 s Normal 12.3-14.8 [facility] Comment on above: Result Comment: ALL RESULTS MUST BE INTERPRETED WITH RESPECT TO BLOOD DRAWING ARTIFACT OR DILUTION ERROR OF ANTICOAGULANT AT THE TIME OF SAMPLING. Performed By: #### 0 0071, [id number] #### [facility] [address] Vital Signs Date Time Vital Sign Value Performing Clinician Facility 06-21-2024 10:23-0500 Heart rate 69 /min Danni Lue [facility] 06-21-2024 10:23-0500 SaO2% (BldA) [Mass fraction] 98 % Danni Lue [facility] 06-21-2024 10:23-0500 Diastolic blood pressure 88 mm[Hg] Danni Lue [facility] 06-21-2024 10:23-0500 Mean blood pressure 104 mm[Hg] Danni Lue [facility] 06-21-2024 10:23-0500 Systolic blood pressure 135 mm[Hg] Danni Lue [facility] 03-15-2024 14:28-0400 Body height 165.1 cm MD Paul Lopez Work Phone: [facility] 03-15-2024 14:28-0400 Body weight 73.93 kg MD Paul Lopez Work Phone: [facility] 01-11-2024 09:54-0400 Blood Pressure Location Danni Lue [facility] 01-11-2024 09:54-0400 Body temperature 98.6 [degF] Danni Lue [facility] 01-11-2024 09:54-0400 Diastolic blood pressure 72 mm[Hg] Danni Lue [facility] 01-11-2024 09:54-0400 Heart rate 57 /min Danni Lue [facility] 01-11-2024 09:54-0400 Respiratory rate 16 /min Danni Lue [facility] 01-11-2024 09:54-0400 Systolic blood pressure 119 mm[Hg] Danni Graham [facility] 10-12-2022 12:01-0400 Diastolic blood pressure 74 mm[Hg] Miguelito Chicas APRN.WEB PRESS OPERATOR Work Phone: [facility] 10-12-2022 12:01-0400 Heart rate 58 /min Miguelito Chicas ORTHOPEDIC NURSE.WEB PRESS OPERATOR Work Phone: [facility] 10-12-2022 12:01-0400 Systolic blood pressure 117 mm[Hg] Miguelito Chicas APRN.WEB PRESS OPERATOR Work Phone: [facility] 04-30-2022 10:56-0500 Body weight 86.23 kg Gera Cardona DO Work Phone: [facility] 04-30-2022 10:56-0500 Diastolic blood pressure 91 mm[Hg] Gera Dulce DO Work Phone: [facility] 04-30-2022 10:56-0500 Heart rate 82 /min Gera Cardona DO Work Phone: [facility] 04-30-2022 10:56-0500 SaO2% (BldA) [Mass fraction] 97 % Gera Dulce DO Work Phone: [facility] 04-30-2022 10:56-0500 Systolic blood pressure 139 mm[Hg] Gera Brianaanabellalas DO Work Phone: [facility] 04-26-2022 03:51-0500 Body height 165.1 cm Roosevelt Merlos MD Work Phone: [facility] 04-26-2022 03:51-0500 Body weight 83.6 kg Roosevelt Merlos MD Work Phone: [facility] 04-22-2022 16:41-0400 Diastolic blood pressure 100 mm[Hg] Brenda Rodriguezer ORTHOPEDIC NURSE.WEB PRESS OPERATOR Work Phone: [facility] 04-22-2022 16:41-0400 Systolic blood pressure 156 mm[Hg] Brenda Blanco ORTHOPEDIC NURSE.WEB PRESS OPERATOR Work Phone: [facility] 04-22-2022 16:17-0400 Body temperature 98.29 [degF] Brendaart Rodriguezer ORTHOPEDIC NURSE.WEB PRESS OPERATOR Work Phone: [facility] 04-22-2022 16:17-0400 Body weight 86.27 kg Brenda Francis ORTHOPEDIC NURSE.WEB PRESS OPERATOR Work Phone: [facility] 04-22-2022 16:17-0400 Heart rate 98 /min Brendaart Blanco ORTHOPEDIC NURSE.WEB PRESS OPERATOR Work Phone: [facility] 04-22-2022 16:17-0400 SaO2% (BldA) [Mass fraction] 100 % Brendaart Blanco ORTHOPEDIC NURSE.WEB PRESS OPERATOR Work Phone: [facility] Encounters Encounter Date Encounter Type Care Provider Facility Start: 07-11-2024 ambulatory Danni Graham Facility:[facility] Start: 06-24-2024 End: 06-24-2024 Emergency department patient visit MA[facility] MORRIS [facility] Start: 06-21-2024 End: 06-21-2024 ambulatory Danni Graham Facility:[facility] Start: 06-21-2024 End: 06-21-2024 Patient encounter procedure Danni Graham [facility] Start: 05-02-2024 End: 06-27-2024 Pre-admission assessment Danni Graham [facility] Start: 03-15-2024 End: 03-15-2024 Patient encounter procedure MD Paul Lopez Work Phone: [facility] [place] Work Phone: Start: 03-15-2024 End: 03-15-2024 ambulatory MD Paul Lopez Work Phone: [facility] Work Phone: Start: 03-09-2024 End: 03-09-2024 Patient Msg Lisandra Gomez ORTHOPEDIC NURSE.WEB PRESS OPERATOR Work Phone: Neurology Comment on above: refill Start: 03-09-2024 End: 03-09-2024 Refill Lorri Plascencia MD Work Phone: Neurology Comment on above: Refill Request Start: 01-25-2024 End: 01-25-2024 ambulatory Danni Graham [facility] Start: 01-25-2024 End: 01-25-2024 Off-Site Danni Graham [facility] Start: 01-11-2024 End: 01-11-2024 ambulatory [facility] Start: 01-11-2024 End: 01-11-2024 Patient encounter procedure Danni Graham [facility] Start: 12-21-2023 ambulatory Danni Santos Facility:[facility] Start: 12-06-2023 Refill Lorri orellana MD Work Phone: Neurology Comment on above: Refill Request donepezil refill Start: 05-23-2023 End: 05-23-2023 ambulatory MIGUELITO CHICAS Facility:[facility] Start: 03-07-2023 Patient entered into trial Chasidy Stovall Research Coordinator [facility] Start: 03-07-2023 Telephone encounter Chasidy locke Research Coordinator Neurology Comment on above: Research ([facility] (IRB [id number])) Start: 02-08-2023 E-mail encounter fro m caregiver Sandie Weinstein APRN.WEB PRESS OPERATOR Work Phone: [facility] Start: 02-08-2023 Follow-up encounter Sandie Beltran ORTHOPEDIC NURSE.WEB PRESS OPERATOR Work Phone: Neurology Comment on above: sleep follow up Start: 02-08-2023 Patient entered into trial Chasidy Stovall Research Coordinator [facility] Start: 02-08-2023 Telephone encounter Chasidy locke Research Coordinator Neurology Comment on above: Research ([facility] (IRB [id number]) Interest) Start: 02-04-2023 Telephone encounter Sandie Beltran ORTHOPEDIC NURSE.WEB PRESS OPERATOR Work Phone: Neurology Comment on above: PAP Therapy Follow U p (12/18/22 - 01/16/[address] FROM DME ) Start: 02-02-2023 Refill Lorri orellana MD Work Phone: Neurology Comment on above: Refill Request Start: 01-13-2023 Telephone encounter Miquel Gaxiola RN Work Phone: Neurology Comment on above: Returning Patient's Call Start: 12-20-2022 End: 12-21-2022 ambulatory SANDIE WEINSTEIN Facility:[facility] Start: 12-03-2022 Telephone encounter Sandie Beltran ORTHOPEDIC NURSE.WEB PRESS OPERATOR Work Phone: Neurology Comment on above: PAP Rx Faxed (DME: [facility] ) Start: 12-02-2022 End: 12-02-2022 Telemedicine consultation with patient Sandie Weinstein APRN.WEB PRESS OPERATOR Work Phone: [place] Start: 12-02-2022 End: 12-02-2022 ambulatory Lorri Plascencia MD Work Phone: Neurology Comment on above: Forms from [employer] Obstructive sleep ap carol (Primary Dx); Primary central sleep apnea; Hyperlipidemia, unspecified hyperlipidemia type Start: 12-02-2022 E-mail encounter fro m caregiver Lorri Plascencia MD Work Phone: [facility] Start: 11-17-2022 End: 11-17-2022 ambulatory Lorri Plascencia MD Work Phone: Neurology Comment on above: Alzheimer's disease (HCC) (Primary Dx) Start: 11-17-2022 End: 11-17-2022 Telemedicine consultation with patient Lorri Plascencia MD Work Phone: [facility] Start: 10-21-2022 End: 10-22-[address] PAUL LOPEZ . Facility: Start: 10-12-2022 End: 10-12-2022 ambulatory MIGUELITO GonzalesFLORIDALMALaura Facility:[facility] Start: 10-12-2022 End: 10-12-2022 Patient encounter procedure Miguelito Gonzalesfloridalmalaura ORTHOPEDIC NURSE.WEB PRESS OPERATOR Work Phone: Neurology Comment on above: Memory loss (Primary Dx); Encounter for lumbar puncture Start: 10-12-2022 End: 10-12-2022 Patient encounter status Miguelito Rogersjeanettelaura ORTHOPEDIC NURSE.WEB PRESS OPERATOR Work Phone: Neurology Start: 08-12-2022 Chart abstracting Leah Esquivel urology Start: 08-11-2022 End: 08-11-2022 ambulatory LORRI PLASCENCIA Facility:[facility] Start: 08-11-2022 End: 08-11-2022 ambulatory Lorri Plascencia MD Work Phone: Neurology Comment on above: Memory loss (Primary Dx) Start: 08-11-2022 End: 08-11-2022 Telemedicine consultation with patient Lorri Plascencia MD Work Phone: [facility] Start: 08-10-2022 E-mail encounter fro m caregiver [facility] MARY ROMO [facility] Start: 08-10-2022 Patient encounter procedure [facility] Provider Neurology Comment on above: cancel appointment Start: 07-21-2022 End: 07-21-2022 ambulatory LORRI PLASCENCIA Facility:[facility] Start: 07-21-2022 End: 07-21-2022 ambulatory Lorri Plascencia MD Work Phone: Neurology Comment on above: Memory loss Start: 07-21-2022 End: 07-21-2022 Telemedicine consultation with patient Lorri Plascencia MD Work Phone: [facility] Start: 05-07-2022 ambulatory NARCISO GUERRA Facility:[facility] Start: 05-07-2022 End: 05-07-2022 Subsequent hospital visit by physician Mri [facility] (Istat/3t) Work Phone: [facility] Rad[facility] MRI Comment on above: Cognitive changes [R 41.89] Start: 04-30-2022 End: 04-30-2022 Patient encounter procedure Gera Cardona DO Work Phone: Neurology Comment on above: SHELBY (obstructive sle ep apnea) (Primary Dx) Start: 04-28-2022 ambulatory Narciso Guerra MD Work Phone: Neurology Comment on above: sleep study results Start: 04-28-2022 E-mail encounter chris m caregiver Narciso Guerra MD Work Phone: [facility] Start: 04-27-2022 ambulatory Narciso Guerra MD Work Phone: Neurology Comment on above: lab results Start: 04-27-2022 E-mail encounter fro m caregiver Narciso Guerra MD Work Phone: [facility] Start: 04-25-2022 Chart abstracting Roosevelt Merlos MD Work Phone: Neurology Start: 04-22-2022 End: 04-22-2022 Office outpatient visit 15 minutes Brenda Blanco APRN.WEB PRESS OPERATOR Work Phone: [facility] Comment on above: Bilateral impacted c erumen [...] End: 07-26-2020 Evaluation and management of inpatient PUAL LOPEZ Facility:[facility] Start: 07-21-2020 End: 07-23-2020 ambulatory NAYA IZAGUIRRE Facility:[facility] Procedures Date Procedure Procedure Detail Performing Clinician Start: 03-15-2024 MR prostate wo/w con MD Paul Lopez Work Phone: Start: 10-12-2022 TOURTELLOTTE BLOOD Og zaina Aviva VELARDE.WEB PRESS OPERATOR Work Phone: Start: 10-12-2022 Cell count misc body fluids w/differential count Miguelito Chicas ORTHOPEDIC NURSE.WEB PRESS OPERATOR Work Phone: Start: 10-12-2022 CSF MANUAL DIFF Miguelito Chicas ORTHOPEDIC NURSE.WEB PRESS OPERATOR Work Phone: Start: 10-12-2022 Glucose body fluid o ther than blood Miguelito Chicas ORTHOPEDIC NURSE.WEB PRESS OPERATOR Work Phone: Start: 05-07-2022 MRI 3D POST [...] DTaP,Tdap,Td Vaccine (2 - Td or Tdap) [facility] Start: 04-22-2025 DIABETES SCREEN DIABETES SCREEN [facility] Start: 04-22-2025 Diabetes Screening Diabetes Screenin g [facility] Start: 02-19-2024 Covid-19 Vaccine () Covid-19 Vaccine () [facility] Start: 02-19-2024 Influenza vaccination [facility] Start: 06-20-2023 Behavioral Health Screening Behavioral Health Screening [facility] Start: 02-18-2023 Covid-19 Vaccine () Covid-19 Vaccine () [facility] Start: 02-18-2023 Influenza vaccination [facility] Start: 10-12-2022 End: 12-12-2022 ADMARK PHOSPHO-TAU TOTAL-TAU/AB42 CSF [facility] Work Phone: Comment on above: Expected: 10/12/2022 , Expires: 12/12/2022 Start: 10-12-2022 End: 12-12-2022 Reagin Ab [Titer] in Cerebral spinal fluid by VDRL [facility] Work Phone: Comment on above: Expected: 10/12/2022 , Expires: 12/12/2022 Start: 08-11-2022 End: 10-11-2022 Cell count panel - Cerebral spinal fluid CSF CELL COUNT Lab Routine Memory loss Expected: 08/11/2022, Expires: 10/11/2022 [facility] Work Phone: Comment on above: Expected: 08/11/2022 , Expires: 10/11/2022 Start: 08-11-2022 End: 10-11-2022 Glucose [Mass/volume] in Cerebral spinal fluid GLUCOSE CSF Lab Routine Memory loss Expected: 08/11/2022, Expires: 10/11/2022 [facility] Work Phone: Comment on above: Expected: 08/11/2022 , Expires: 10/11/2022 Start: 08-11-2022 End: 10-11-2022 MISC SEND OUT TST 1 MISC SEND OUT TST 1 Lab Routine Memory loss Expected: 08/11/2022, Expires: 10/11/2022 [facility] Work Phone: Comment on above: Expected: 08/11/2022 , Expires: 10/11/2022 Start: 08-11-2022 End: 10-11-2022 Protein [Mass/volume] in Cerebral spinal fluid PROTEIN CSF Lab Routine Memory loss Expected: 08/11/2022, Expires: 10/11/2022 [facility] Work Phone: Comment on above: Expected: 08/11/2022 , Expires: 10/11/2022 Start: 08-11-2022 End: 10-11-2022 Reagin Ab [Titer] in Cerebral spinal fluid by VDRL VDRL CSF Lab Routine Memory loss Expected: 08/11/2022, Expires: 10/11/2022 [facility] Work Phone: Comment on above: Expected: 08/11/2022 , Expires: 10/11/2022 Start: 08-11-2022 End: 10-11-2022 TOURTELLOTTE BLOOD TOURTELLOTTE BLOOD Lab Routine Memory loss Expected: 08/11/2022, Expires: 10/11/2022 [facility] Work Phone: Comment on above: Expected: 08/11/2022 , Expires: 10/11/2022 Start: 06-20-2022 DEPRESSION ASSESSMENT DEPRESSION ASS ESSMENT [facility] Start: 02-18-2022 Influenza vaccination INFLUENZA (#1) [facility] Start: 06-20-2021 DEPRESSION ASSESSMENT DEPRESSION ASS ESSMENT [facility] Start: 05-29-2021 COVID-19 VACCINE (3 - Booster for Pfizer series) COVID-19 VACCINE (3 - Booster for Pfizer series) [facility] Start: 05-29-2021 COVID-19 VACCINE (3 - Pfizer series) COVID-19 VACCINE (3 - Pfizer series) [facility] Start: 2020 PROSTATE CANCER SCREENING DISCUSSION PROSTATE CANCER SCREENING DISCUSSION [facility] Start: 2020 Prostate specific antigen measurement Prostate Cancer Screening Discussion [facility] Start: 2015 SHINGRIX VACCINE (1 of 2) SHINGRIX VACCINE (1 of 2) [facility] Start: 2010 COLOGUARD (FIT-DNA) COLOGUARD (FIT-D NA) [facility] Start: 2010 Colonoscopy COLONOSCOPY [facility] Start: 2010 COLORECTAL CANCER SCREENING COLORECTAL CANCER SCREENING [facility] Start: [address] COLONOGRAPHY [facility] Start: 2010 DIABETES SCREEN DIABETES SCREEN [facility] Start: 2010 FECAL OCCULT BLOOD FECAL OCCULT BLOO D [facility] Start: 2010 Screening for malign ant neoplasm of colon [facility] Start: 2010 SIGMOIDOSCOPY SIGMOIDOSCOPY [facility] Start: 2000 Lipid 1996 panel - S flakita or Plasma Lipid Screening [facility] Start: 2000 Lipid panel Lipid Screening [facility] Start: 2000 LIPID SCREEN LIPID SCREEN [facility] Start: 1984 Hepatitis B Vaccine (1 of 3 - 19+ 3-dose series) Hepatitis B Vaccine (1 of 3 - 19+ 3-dose series) [facility] Start: 1984 Urine microalbumin profile [facility] Start: 1983 Anxiety Screening Anxiety Screening [facility] Start: 1983 Depression Screening Depression Scre ening [facility] Start: 1983 HEPATITIS C SCREENING HEPATITIS C [facility] Start: 1983 Hepatitis C screening Hepatitis C [facility] Start: 1983 HIV SCREENING HIV SCREENING [facility] Start: 1965 HEPATITIS B (1 of 3 - 3-dose series) HEPATITIS B (1 of 3 - 3-dose series) [facility] Start: 1965 Hepatitis B Vaccine (1 of 3 - 3-dose series) Hepatitis B Vaccine (1 of 3 - 3-dose series) [facility] End: 02-22-2024 LUMBAR PUNCTURE/YESICA LUMBAR PUNCTURE/YESICA NEUROLOGY Routine Memory loss 1 Occurrences starting 08/11/2022 until 08/11/2023 [facility] Work Phone: Comment on above: 1 Occurrences starti ng 08/11/2022 until 08/11/2023 End: 10-13-2023 LUMBAR PUNCTURE/YESICA LUMBAR PUNCTURE/YESICA NEUROLOGY Routine Memory loss 1 Occurrences starting 10/12/2022 until 10/13/2023 [facility] Work Phone: Comment on above: 1 Occurrences starti ng 10/12/2022 until 10/13/2023 End: 01-01-2024 PAP TITRATION PSG (CPAP, BIPAP, ASV) PAP TITRATION PSG (CPAP, BIPAP, ASV) Procedures Routine Obstructive sleep apnea 1 Occurrences starting 12/02/2022 until 01/01/2024 [facility] Work Phone: Comment on above: 1 Occurrences starti ng 12/02/2022 until 01/01/2024 Removal impacted cer umen irrigation/lvg unilat AMBULATORY EAR LAVAGE/IRRIGATION Procedures Routine Bilateral impacted cerumen Ordered: 04/22/2022 [facility] Work Phone: Comment on above: Ordered: 04/22/2022 TOURTELLOTTE CSF TOURTELLOTTE CS F Lab Routine Memory loss Ordered: 08/11/2022 [facility] Work Phone: Comment on above: Ordered: 08/11/2022 [facility] Payers Date Payer Category Payer Medicare [id number] 2024 Self-pay 2024 Unknown [id number] 2024 Unknown [id number] 2021 Unknown [id number] 1965 Unknown [id number] 2.16.8 [id number] 1965 Unknown [id number] 2.16.8 [id number] 1965 Unknown [id number] 2.16.84 [id number] 1965 Unknown [id number] 2.16.84 [id number] 1965 Unknown [id number] 2.16.84 [id number] 1965 Unknown [id number] 2.16.8 [id number] 1965 Unknown [id number] 2.16.8 [id number] 1965 Unknown [id number] 2.16.8 [id number] 1965 Unknown [id number] 2.16. [id number] 1959 Unknown [id number] 1959 Unknown [id number] Unknown [id number] 2.16.8 [id number] Social History Date Type Detail Facility Start: 04-22-2022 End: 01-11-2024 Tobacco smoking status [facility] Never smoked tobacco [facility] Start: 04-22-2022 Tobacco use and exposure Smokeless tobacco non-user [facility] Start: 04-22-2022 End: 10-12-2022 Alcohol intake Ex-drinker (finding) [facility] Start: 1965 Sex Assigned At Not on file [facility] Start: 04-12-2022 End: 05-07-2022 Exposure to SARS-CoV-2 (event) Not sure [facility] Start: 10-12-2022 End: 11-17-2022 History of Social function [facility] Start: 10-12-2022 End: 11-17-2022 Tobacco use panel [facility] Adult Depression Screening Assessment 2 [facility] Start: 1965 Sex Assigned At Male F [facility] Functional Status Date Assessment Result Facility 06-21-2024 Functional Status No [facility] 01-11-2024 Functional Status N/A [facility] Janice Clinical Notes 07-24-2020 to 06-26-2024 [...] on today to talk to Dr. Graham's parts picker about obtained PSA level [facility] 03-09-2024 Telephone encounter Note I have refilled your prescription. A review of your chart shows that you have not had a follow up visit in more than 1 year. Refills for medications require at least 1 follow up visit per year. Please call: to schedule an appointment. Lisandra Gomez APRN.CNP [facility] 03-09-2024 Miscellaneous Notes I have refilled your prescription. A review of your chart shows that you have not had a follow up visit in more than 1 year. Refills for medications require at least 1 follow up visit per year. Please call: to schedule an appointment. Lisandra Gomez APRN.CNP documented in this encounter [facility] 01-11-2024 Hospital Discharge instructions Patient Education 01/11/2024 [...] treatment? Where to find more information The [place] [employer]: www.cancer.org [place] [employer] Association: www.auanet.org Contact a health care [...] provider. Document Revised: 11/30/2021 Document Reviewed: 11/30/2021 [employer] Patient Education 2022 [employer] Follow Up Care 12/23/2023 09:42:08 With:Santos PEÑA, Danni Portillo, URL, URO Address: When: Unknown Comments:Pending MRI, may proceed with fusion bx [facility] 01-11-2024 Note Urology Office/Clini c Note Chief [...] repair with mesh. -Will schedule MRI @ [facility]. -Will schedule MRI fusion transperineal prostate [...] Biopsy of pro (more content not included)... [facility] Comment on above: Result Comment: Elec tronically [...] Where to find more information ? The [place] [employer]: www.cancer.org ? [place] U[employer] Association: www.auanet.org Contact a health care [...] of the rectum. (more content not included)... [facility] 12-06-2023 Telephone encounter Note The following approved medication requests have been transmitted electronically. Requested Prescriptions Signed Prescriptions Disp Refills donepezil (ARICEPT) 5 mg tablet 90 tablet 0 Sig: Take 1 tablet by mouth once daily. Authorizing Provider: LORRI PLASCENCIA Ordering User: TANISHA JEFFERS APRN.CNP [facility] 12-06-2023 Miscellaneous Notes The following approved medication requests have been transmitted electronically. Requested Prescriptions Signed Prescriptions Disp Refills donepezil (ARICEPT) 5 mg tablet 90 tablet 0 Sig: Take 1 tablet by mouth once daily. Authorizing Provider: LORRI PLASCENCIA Ordering User: TANISHA JEFFERS APRN.CNP documented in this encounter [facility] 03-07-2023 Miscellaneous Notes Summary: [facility] Baseline Interest A voicemail was left about participation in [facility] research study. documented in this encounter [facility] 02-09-2023 Miscellaneous Notes [employer] message sent documented in this encounter [facility] 02-08-2023 Miscellaneous Notes Summary: [facility] Potential Participant A call was made to of patient to talk about interest in participating in [facility]. expressed interest in participating. The [facility] consent document was sent through email. A call will be made in a week to discuss enrollment. documented in this encounter [facility] 02-04-2023 Miscellaneous Notes Images from the original note were not included. documented in this encounter [facility] 02-02-2023 Miscellaneous Notes The following approved medication requests have been transmitted electronically. Requested Prescriptions Signed Prescriptions Disp Refills donepezil (ARICEPT) 5 mg tablet 90 tablet 1 Sig: TAKE 1 TABLET BY MOUTH EVERY DAY Authorizing Provider: LORRI PLASCENCIA Ordering User: KIMO PATE APRN.CNP documented in this encounter [facility] 01-13-2023 Miscellaneous Notes Patient returned call, requested a call back. I left a message explaining the 4% requirement from Medicare, and advised to contact Medicare if they have insurance questions. Advised to call me back if they had other concerns or questions. Sandie Weinstein APRN.EFRAIN documented in this encounter [facility] 01-11-2023 Note HNO ID: [id number] Author: Ana Jaffe RN Service: ? Author Type: Registered Nurse Type: Progress Notes Filed: 01/11/2023 11:19 AM Note Text: RN faxed LTD forms along with the last 2 office visits notes to [employer]: [phone], confirmation received, patient made aware. Ana Jaffe RN [facility] 01-11-2023 Note HNO ID: [id number] Author: Ana Jaffe RN Service: ? Author [...] 2 office visit notes. Ana Jaffe RN [facility] 12-03-2022 Miscellaneous Notes Faxed order, office notes, demographics, and sleep study to: DME name: [facility] DME fax: [phone] DME ph: documented in this encounter [facility] 12-02-2022 Note HNO ID: [id number] Author: Sandie Weinstein APRN.WEB PRESS OPERATOR Service: ? Author Type: Nurse Practitioner Type: Progress Notes Filed: 12/02/2022 3:32 PM Note Text: [facility] Follow up/ Established patient [...] will have a prescription sent to a [employer]) company - [employer] who will be calling you in the [...] for you. Roosevelt Merlos PGY-4 Sleep fellow [facility] I have supervised and discussed the patient case with the Sleep Medicine Fellow including interviewing the patient in person and have updated the electronic medical record where necessary. I agree with the history, physical, impression and recommendations as documented. Gera Cardona DO, CBSM, ABSM Clinical Staff Sleep Medicine [facility] [address] [place] [address] I have communicated my name and active licensure. The patient's identity and physical location were verified at the time of this visit. Either the patient or their legal solar sales representative and assessor has been informed of the risks and benefits of -- and alternatives to -- treatment through a remote evaluation and consents to proceed with the evaluation remotely. Interval history : Here for follow up for SHELBY follow up after starting PAP therapy. ; SLEEP APNEA Sleep apnea type : SHELBY, Most Recent Apnea-Hypopnea Index (AHI): 47.7 Treatment : PAP therapy DME: [employer] PAP History: Uses Bilevel PAP for 2 [...] or near accidents due to drowsy drivin Hobbs Sleepiness Scale 04/28/2022 Score Incomplete PROMIS CAT [...] EC tablet onc (more content not included)... [facility] 12-02-2022 History of Present illness Narrative Images from the original note were not included. [facility] Follow up/ Established patient [...] will have a prescription sent to a [employer]) company - [employer] who will be calling you in the next 1-2 weeks or so. Please call them directly or us if you do not hear from them in this time frame. - You should be eligible for new supplies approximately every 3-6 months, depending on your insurance coverage. - If your mask doesn't fit well, call the [employer] company before 30 days are up to get a new mask without an additional charge. - Insurance requires regular usage and periodic office follow ups for PAP therapy, to continue to cover supplies. - Follow up in 2 months in the office. Recommend scheduling this appointment now to ensure the best time for you. Roosevelt Merlos PGY-4 Sleep fellow [facility] I have supervised and discussed the patient case with the Sleep Medicine Fellow including interviewing the patient in person and have updated the electronic medical record where necessary. I agree with the history, physical, impression and recommendations as documented. Gera Cardona DO, CBSM, ABSM Clinical Staff Sleep Medicine [facility] [address] [place] [address] [place] [address] I have communicated my name and active licensure. The patient's identity and physical location were verified at the time of this visit. Either the patient or their legal solar sales representative and assessor has been informed of the risks and benefits of -- and alternatives to -- treatment through a remote evaluation and consents to proceed with the evaluation remotely. Interval history : Here for follow up for SHELBY follow up after starting PAP therapy. ; SLEEP APNEA Sleep apnea type : SHELBY, Most Recent Apnea-Hypopnea Index (AHI): 47.7 Treatment : PAP therapy DME: [employer] PAP History: Uses Bilevel PAP for 2 [...] or near accidents due to drowsy drivin Hobbs Sleepiness Scale 04/28/2022 Score Incomplete PROMIS CAT [...] which included preparing to see the patient, hyyq-wy-mifx patient care, completing clinical documentation, obtaining and/or reviewing separately obtained history, counseling and educating the patient/family/caregiver, ordering medications, tests, or procedures, and communicating results to the patient/family/caregiver. documented in this encounter [facility] 11-17-2022 Note HNO ID: [id number] Author: Lorri Plascencia MD Service: ? Author Type: Physician Type: Progress Notes Filed: 11/17/2022 5:40 PM Note Text: Noé Jeffery 1965 [facility] [id number] November 17, 2022 [facility] Report Virtual Virtual visit with Patient and family members Chief complaint: poor memory, forgetfulness I have communicated my name and active licensure. The patient's identity and physical location were verified at the time of this visit. Either the patient or their legal solar sales representative and assessor has been informed of the risks and [...] that time. 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 [facility] 11-17-2022 Instructions Lorri Plascencia MD [...] are our recommendations: - Cognitive therapy at [facility]. - Aricept 5 mg daily with breakfast - Namenda 5 twice a day with breakfast and dinner. - Maintain physically, socially and cognitively healthy lifestyle. - Schedule in person report in February 2023. Please schedule next visit with Lorri Plascencia MD, PhD or Kimo Pate NP in person in February -March 2023 To schedule testing and visits please call: [phone]. If you have new, unexpected concerns in between visits please call our office at [phone] ( you will be able to reach one of our nurses). [facility] fax [phone] Ways to keep your brain healthy: Follow [...] fish and fish high in mercury (swordfish, Iraqi sea martinez, orange roughy, ahi tuna, albacore [...] resources are: The Alzheimer's Association (web site: alz.org/aspen) available 24 hours a day, 7 days per week. Contact: Local: ; Toll free: [phone] Family Caregiver [place] (web site: Caregiver.org) MARLEEN Hawkins-- a secure online solution for quality information, support, and resources for family caregivers. Contact: Toll-free number: 201.972.2201 Alzheimers.gov - Find Alzheimer disease and related dementias information, resources, research and more. documented in this encounter [facility] 11-17-2022 History of Present illness Narrative Images from the original note were not included. Noé Jeffery 1965 [facility] [id number] November 17, 2022 [place] [facility] Report Virtual Virtual visit with Patient and family members Chief complaint: poor memory, forgetfulness I have communicated my name and active licensure. The patient's identity and physical location were verified at the time of this visit. Either the patient or their legal solar sales representative and assessor has been informed of the risks and [...] that time. 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 Bradycardia. PLAN: - [facility] referral - Cognitive therapy at [facility]. - Aricept 5 mg daily with breakfast [...] . Lorri Plascencia MD, PhD Geriatric Psychiatry [facility] CC: 1. No primary care provider on file., (fax) None documented in this encounter [facility] 11-12-2022 Note HNO ID: [id number] Author: Nataly Lafleur Service: ? Author Type: ? Type: Progress Notes Filed: 11/12/2022 8:54 AM Note Text: 11/12 Forms signed and faxed back. Scanned in [employer]. [facility] 11-10-2022 Note HNO ID: [id number] Author: Ana Jaffe RN Service: ? Author Type: Registered Nurse Type: Progress Notes Filed: 11/10/2022 9:26 AM Note Text: Disability forms filled out, will give to the provider when back in office to review and sign. Ana Jaffe RN [facility] 11-09-2022 Note HNO ID: [id number] Author: Nataly Lafleur Service: ? Author Type: ? Type: Progress Notes Filed: 11/09/2022 10:14 AM Note Text: 11/09 Rec'd via fax [employer]ability [employer] form, scanned into [employer] and gave to Ana Dejesus For review. [facility] 10-12-2022 Note HNO ID: [id number] Author: Miguelito Chicas APRN.EFRAIN Service: ? Author Type: Nurse Practitioner Type: Progress Notes Filed: 10/12/2022 2:33 PM Note Text: [facility] PROCEDURE FOR DIAGNOSTIC TESTING Noé Jeffery, [id number] October 12, 2022, 8:57 AM INFORMED CONSENT The risks, benefits and anticipated outcomes of the procedure, the risks and benefits of the alternatives to the procedure and the roles and tasks of the personnel to be involved were discussed with the patient, who consents to the procedure and agrees to proceed. I verify that I personally obtained Noé Jeffery's consent, Miguelito Chicas APRN.[facility] UNIVERSAL PROTOCOL / SAFETY CHECKLIST Procedure [...] Care Visit completed when applicable. Miguelito Chicas APRN.[facility] Pre-Procedure Labs: Component Latest Ref Rng AND Units 04/22/2022 Platelet Count 150 - 400 k/uL 223 Pertinent History: Prior LP or Epidural: NO Allergy to lidocaine: NO Allergy to betadine: NO Taking anticoagulants: NO Back problems or trauma: NO Sign in Communication: Completed Pre-LP vitals: 1039 122/86 HR 56 Procedure: Performed by: Miguelito Chicas APRN.[facility] Asst: Tanisha jeffers, MARCI / Ana Jaffe RN Relevant documentation, images, implants or special equipment present: N/A Patient positioned: left lateral decubitus Prepped and draped under aseptic conditions. Procedural site marked, verified by: Miguelito Chicas APRN.[facility] Site: L4-5 AUDIBLE TIME OUT: 1045 [...] BP 117/74 Pulse (!) 58 Miguelito Chicas APRN.WEB PRESS OPERATOR October 12, 2022 [facility] 10-12-2022 Nurse Note [facility] LUMBAR PUNCTURE NURSE DISCHARGE NOTE The [...] Tanisha Jeffers RN documented in this encounter [facility] 10-12-2022 Instructions Miguelito Chicas APRN.WEB PRESS OPERATOR - 10/12/2022 10:31 AM EDT Images from the original note were not included. [facility] [place] GOING HOME INSTRUCTIONS POST LP HEADACHE Prevention [...] as coffee or tea You can take oftc-onv-msamnpa Tylenol and/or Ibuprofen as directed INFECTION PREVENTION [...] from 8-5pm, please contact our office line [phone] and then hit 0 , please ask our administrative project coordinator to page the provider who performed the spinal tap. -For nights or weekends, call or toll free and ask the hydrotreater operator the page the Neurology resident on-call. 2. If your headache is unusually severe regardless of bedrest or lasts more than two days 3. If you develop a fever 4. If you notice inflammation, pus formation or clear drainage from the site of the needle puncture You may resume your usual activities after 48 hours. documented in this encounter [facility] 10-12-2022 History of Present illness Narrative [facility]AGNOSTIC [place]ING Noé Jeffery, [id number] October 12, 2022, 8:57 AM INFORMED CONSENT [...] October 12, 2022 documented in this encounter [facility] 10-04-2022 Note HNO ID: [id number] Author: Leah Mckeon RN Service: ? Author Type: Registered Nurse Type: Progress Notes Filed: 10/04/2022 12:56 PM Note Text: Entered in error. Leah Mckeon RN [facility] 08-12-2022 Note HNO ID: [id number] Author: Leah Mckeon RN Service: ? Author [...] Abs Lymph 1.00 - 4.00 k/uL 1.45 Bullock% % 6.2 Abs Bullock <0.87 k/uL 0.31 Eosin% % 0.6 Abs Eosin <0.46 k/uL 0.03 Baso% % 0.8 Abs Baso <0.11 k/uL 0.04 Immature Gran % % 0.2 IMMATURE GRANS (ABS) <0.10 k/uL <0.03 NRBC /100 WBC 0.0 Absolute nRBC <0.01 k/uL <0.01 DTYPE Auto Care Coordination Interventions: none Leah Mckeon RN [facility] 08-12-2022 History of Present illness [...] Abs Lymph 1.00 - 4.00 k/uL 1.45 Bullock% % 6.2 Abs Bullock <0.87 k/uL 0.31 Eosin% % 0.6 Abs Eosin <0.46 k/uL 0.03 Baso% % 0.8 Abs Baso <0.11 k/uL 0.04 Immature Gran % % 0.2 IMMATURE GRANS (ABS) <0.10 k/uL <0.03 NRBC /100 WBC 0.0 Absolute nRBC <0.01 k/uL <0.01 DTYPE Auto Care Coordination Interventions: none Leah Mckeon RN documented in this encounter [facility] 08-11-2022 Note HNO ID: [id number] Author: Lorri Plascencia MD Service: ? Author Type: Physician Type: Progress Notes Filed: 08/11/2022 3:58 PM Note Text: Noé Jeffery [address] [place] [id number] August 11, 2022 Time: 2:35 PM [facility] OUTPATIENT VISIT TYPE New [...] that time. 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 [facility] 08-11-2022 Instructions Lorri Plascencia MD [...] To schedule testing and visits please call: [phone]. If you have new, unexpected concerns in between visits please call our office at [phone] ( you will be able to reach one of our nurses). [facility] fax [phone] Ways to keep your brain healthy: Follow [...] fish and fish high in mercury (swordfish, Iraqi sea martinez, orange roughy, ahi tuna, albacore [...] resources are: The Alzheimer's Association (web site: alz.org/aspen) available 24 hours a day, 7 days per week. Contact: Local: ; Toll free: [phone] Family Caregiver [place] (web site: Caregiver.org) [employer]-- a secure online solution for quality information, support, and resources for family caregivers. Contact: Toll-free number: [phone] Alzheimers.gov - Find Alzheimer disease and related dementias information, resources, research and more. documented in this encounter [facility] 08-11-2022 History of Present illness Narrative Images from the original note were not included. Noé Jeffery [address] [place] [id number] August 11, 2022 Time: 2:35 PM Center [...] that time. 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 Lorri Plascencia MD, PhD Geriatric Psychiatry [facility] CC: 1. No primary care provider on file., (fax) None documented in this encounter [facility] 07-22-2022 Note HNO ID: [id number] Author: Lorri Plascencia MD Service: ? Author Type: Physician Type: Progress Notes Filed: 07/22/2022 11:10 AM Note Text: No show. Connection aborted after 15 min. of waiting online [facility] 07-22-2022 History of Present illness Narrative No show. Connection aborted after 15 min. of waiting online [facility] documented in this encounter [facility] 05-07-2022 Miscellaneous Notes Radiology Service Progress Note [...] DATA: Not applicable SIGNED BY: Nicole Huffman rod puller May 07, 2022 1:31 PM documented in this encounter [facility] 04-30-2022 Instructions Roosevelt Merlos MD - 04/30/2022 [...] will have a prescription sent to a [employer] medical equipment) company - [employer] who will be calling you in the next 1-2 weeks or so. Please call them directly or us if you do not hear from them in this time frame. - You should be eligible for new supplies approximately every 3-6 months, depending on your insurance coverage. - If your mask doesn't fit well, call the [employer] company before 30 days are up to get a new mask without an additional charge. - Insurance requires regular usage and periodic office follow ups for PAP therapy, to continue to cover supplies. - Follow up in 2 months in the office. Recommend scheduling this appointment now to ensure the best time for you. CMS Requirements - Your insurance requires a [id number] follow up visit within a 31-90 day [...] for BiPAP supplies. documented in this encounter [facility] 04-30-2022 History of Present illness Narrative Images from the original note were not included. [facility] New Patient Evaluation PATIENT NAME: Noé Jeffery DATE OF SERVICE: April 30, 2022 CONSULTING PROVIDER: Narciso Guerra [address] [facility] [address] REASON FOR CONSULT: Narciso Guerra sends the [...] or near accidents due to drowsy drivin Hobbs Sleepiness Scale 04/28/2022 Score Incomplete PROMIS CAT [...] will have a prescription sent to a [employer] (durable medical equipment) company - [employer] who will be calling you in the next 1-2 weeks or so. Please call them directly or us if you do not hear from them in this time frame. - You should be eligible for new supplies approximately every 3-6 months, depending on your insurance coverage. - If your mask doesn't fit well, call the [employer] company before 30 days are up to get a new mask without an additional charge. - Insurance requires regular usage and periodic office follow ups for PAP therapy, to continue to cover supplies. - Follow up in 2 months in the office. Recommend scheduling this appointment now to ensure the best time for you. Roosevelt Merlos PGY-4 Sleep fellow [facility] I have supervised and discussed the patient case with the Sleep Medicine Fellow including interviewing the patient in person and have updated the electronic medical record where necessary. I agree with the history, physical, impression and recommendations as documented. Gera Cardona, , CBSM, ABSM Clinical Staff Sleep Medicine [facility] [address] [place] [address] documented in this encounter [facility] 04-26-2022 History of Present illness Narrative Sleep [...] with their ordering provider regarding test results [facility] April 25, 2022 Standing PSG Orders signed in the last 90 days None Future PSG Orders signed in the last 90 days Ordered Auth. provider POLYSOMNOGRAM (PSG) [[id number]] 04/22/22 Narciso Guerra MD Assoc. diagnoses: Cognitive [...] 8:46 PM 04/25/2022 documented in this encounter [facility] 04-22-2022 History of Present illness Narrative [facility] [place] AUDIOLOGIC EVALUATION REPORT Name: Noé Jeffery [facility]#: [id number] Date of Service: 04/22/2022 Date of : 1965 Age: [age] year old Referred by: Narciso Guerra [address] [facility] [address] Referred for: Evaluation of the cause of disorder of hearing, tinnitus, or balance. Referral documented: In an order in [facility] Patient's major complaints: Noé reported he [...] evaluation of middle ear function. CPT code: 66531 RIGHT EAR: Tympanogram that was flat, with no identifiable peak and reduced TM mobility consistent with a conductive pathology (wax). LEFT EAR: Normal ME pressure and TM compliance (mobility). ACOUSTIC REFLEXES Description of procedure: This test is an objective measure of auditory and facial nerve pathways. CPT code: 55379, 92076 RIGHT EAR PROBE EAR: (ipsi right stimulus [...] bone conduction and speech recognition testing. CPT code:94153 RIGHT EAR: Hearing Sensitivity: Did not test. Word Recognition Score: Did not test. LEFT EAR: Hearing Sensitivity: Did not test. Word Recognition Score: Did not test. RECOMMENDATIONS Medical follow up for removal of bilateral impacted cerumen. Patient will see [facility] today. Hearing Test after #1. Juana Horta, ARIE/A Clinical Livestock Laborer JIMENEZ Abbrev- iation Definition Degree of hearing sensitivity dB range WNL within normal limits WNL 0 - 20 SNHL sensorineural hearing loss Mild 20-40 CHL conductive hearing loss Moderate 40-55 MHL mixed hearing loss Moderately-Severe 55-70 WRS word recognition score Severe 70-90 ME middle ear Profound 90 + TM tympanic membrane documented in this encounter [facility] 04-22-2022 History of Present illness Narrative This note was created using [employer]. Subjective Noé Jeffery is a 56 year [...] externa of left ear, unspecified type Plan: idlcfpbe-wgfxhkhmh-flowxzovnwudb e (CORTISPORIN) 3.5-10,000-1 mg/mL-unit/mL-% otic suspension Use as directed Follow up with PCP if symptoms worsen or do not improve Brenda Blanco APRN.EFRAIN April 22, 2022 documented in this encounter [facility] 04-22-2022 Instructions Brenda Blanco APRN.EFRAIN - 04/22/2022 [...] made for swimming. documented in this encounter [facility] 07-27-2020 Note MR#: [id number] [facility] Pt. Name: Noé Jeffery Admitted: [...] Ga MD Date Trans: 07/27/2020 03:32 A/patricia [id number] cc: Paul Hoy, M.D. [address] [place] [address] [facility] 07-24-2020 Note MR#: [id number] [facility] Pt. Name: Noé Jeffery Admitted: [...] Ga MD Date Trans: 07/24/2020 10:00 A/mmo [id number] cc: Paul Lopez M.D. [address], [facility] [address] [facility] Evaluation + Plan note No data available for this section [facility] Evaluation + Plan note Future Appointments Appointment Date:06/26/2024 12:00:00 PM Scheduled Provider: Location:[facility] Appointment Type:Surgery FT Appointment Date:07/11/2024 11:15:00 AM Scheduled Provider:Danni Graham MD Location:[facility] Appointment Type:URO Office Visit [facility] Evaluation + Plan note Future Appointments Appointment Date:07/11/2024 11:15:00 AM Scheduled Provider:Danni Graham MD Location:[facility] Appointment Type:URO Office Visit [facility] Evaluation note Diagnosis Bilateral impacted cerumen- Primary Impacted cerumen Elevated blood pressure reading without diagnosis of hypertension Acute otitis externa of left ear, unspecified type [facility] Diagnosis Bilateral impacted cerumen- Primary Impacted cerumen [facility] Diagnosis Sleep apnea, unspecified type- Primary Sleep hypopnea Other sleep disturbances [facility] Diagnosis SHELBY (obstructive sleep apnea)- Primary Obstructive sleep apnea (adult) (pediatric) documented in this encounter [facility] note* Diagnosis Memory loss documented in this encounter [facility] note* Diagnosis Memory loss- Primary documented in this encounter [facility] note* Diagnosis Memory loss- Primary Encounter for lumbar puncture documented in this encounter [facility] note* Diagnosis Alzheimer's disease (HCC)- Primary Alzheimer's disease documented in this encounter [facility] note* Diagnosis Obstructive sleep apnea- Primary Obstructive sleep apnea (adult) (pediatric) Primary central sleep apnea Hyperlipidemia, unspecified hyperlipidemia type documented in this encounter [facility] note* Diagnosis Alzheimer's disease (HCC)- Primary Alzheimer's disease documented in this encounter [facility] note* Diagnosis Research study patient- Primary documented in this encounter [facility] note* Diagnosis Cognitive changes Other signs and symptoms involving cognition documented in this encounter [facility] note* Diagnosis Alzheimer's disease (HCC) Alzheimer's disease documented in this encounter [facility] note* Diagnosis Alzheimer's disease (HCC) Alzheimer's disease documented in this encounter [facility] noteNo assessment information availableMarion [facility] Work Phone: Hospital Discharge instructions No data available for this section [facility] Progress note No data available for this section [facility] Summary Purpose Family History No Family History [...] CONSULT TO SLEEP MEDICINE - ADULT OFFICE/OUTPATIENT [facility] 60-74 MINUTES Narciso Guerra MD [address] [place] [address] Referral ID Status Reason Start Date Expiration Date Visits Requested Visits Authorized [id number] Authorized PCP Requested Referral 04/28/2022 04/28/2023 1 1 Specialty Diagnoses / Procedures Referred By Naseem t Referred To Contact [facility] Diagnoses Alzheimer's disease (HCC) Procedures CONSULT TO SPEECH THERAPY OFFICE/OUTPATIENT [facility] 60-74 MINUTES Lorri Plascencia MD [address] [place] [address] [facility] [place] [address] [place] [address] Referral ID Status Reason Start Date Expiration Date Visits Requested Visits Authorized [id number] Pending Review Auto-Generat ed Referral 11/17/2022 11/17/2023 1 1 Specialty Diagnoses / Procedures Referred By Naseem araujo Referred To Contact [facility] Diagnoses Cognitive changes Procedures MRI 3D POST PROCESSING 3D RENDERING W/INTERP&POSTPROC [place] [address] [place] [address] [facility] [place] [address] Referral ID Status Reason Start Date Expiration Date V isits Requested Visits Authorized [id number] Closed Auto-Generate d Referral 04/22/2022 05/22/2023 1 1 Specialty Diagnoses / Procedures Referred By Naseem araujo Referred To Contact MR IMAGING Diagnoses Cognitive changes Procedures MRI BRAIN WO IVCON MRI BRAIN BRAIN STEM W/O CONTRAST MATERIAL Narciso Guerra MD [address] [place] [address] [facility] [place] [address] Referral ID Status Reason Start Date Expiration Date V isits Requested Visits Authorized [id number] Closed Auto-Generate d Referral 04/22/2022 06/06/2022 1 [...] section and content) DATE CREATED AUTHOR 04/15/2021 [facility] DATE CREATED AUTHOR AUTHOR'S ORGANIZ ATION 05/09/2022 [facility] DATE CREATED AUTHOR AUTHOR'S ORGANIZ ATION 10/28/2022 [facility] DATE CREATED AUTHOR AUTHOR'S ORGANIZ ATION 05/24/2023 [facility] DATE CREATED AUTHOR AUTHOR'S ORGANIZ ATION 06/17/2024 [facility] DATE CREATED AUTHOR AUTHOR'S ORGANIZ ATION 06/22/2024 [facility] DATE CREATED AUTHOR AUTHOR'S ORGANIZ ATION 06/28/2024 [facility] DATE CREATED AUTHOR AUTHOR'S ORGANIZ ATION 07/01/2024 [facility] Source Comments (unrecognize d section and content) In the event this informatio n is protected by the Federal Confidentiality of Alcohol and Drug Abuse Patient Records regulations: The Federal rules restrict any use of the information to criminally investigate or prosecute any alcohol or drug abuse patient.[facility] the event this information is protected by the Federal Confidentiality of Alcohol and Drug Abuse Patient Records regulations: The Federal rules restrict any use of the information to criminally investigate or prosecute any alcohol or drug abuse patient.[facility] the event this information is protected by the Federal Confidentiality of Alcohol and Drug Abuse Patient Records regulations: The Federal rules restrict any use of the information to criminally investigate or prosecute any alcohol or drug abuse patient.[facility] the event this information is protected by the Federal Confidentiality of Alcohol and Drug Abuse Patient Records regulations: The Federal rules restrict any use of the information to criminally investigate or prosecute any alcohol or drug abuse patient.[facility] the event this information is protected by the Federal Confidentiality of Alcohol and Drug Abuse Patient Records regulations: The Federal rules restrict any use of the information to criminally investigate or prosecute any alcohol or drug abuse patient.[facility] the event this information is protected by the Federal Confidentiality of Alcohol and Drug Abuse Patient Records regulations: The Federal rules restrict any use of the information to criminally investigate or prosecute any alcohol or drug abuse patient.[facility] the event this information is protected by the Federal Confidentiality of Alcohol and Drug Abuse Patient Records regulations: The Federal rules restrict any use of the information to criminally investigate or prosecute any alcohol or drug abuse patient.[facility] the event this information is protected by the Federal Confidentiality of Alcohol and Drug Abuse Patient Records regulations: The Federal rules restrict any use of the information to criminally investigate or prosecute any alcohol or drug abuse patient.[facility] the event this information is protected by the Federal Confidentiality of Alcohol and Drug Abuse Patient Records regulations: The Federal rules restrict any use of the information to criminally investigate or prosecute any alcohol or drug abuse patient.[facility] the event this information is protected by the Federal Confidentiality of Alcohol and Drug Abuse Patient Records regulations: The Federal rules restrict any use of the information to criminally investigate or prosecute any alcohol or drug abuse patient.[facility] the event this information is protected by the Federal Confidentiality of Alcohol and Drug Abuse Patient Records regulations: The Federal rules restrict any use of the information to criminally investigate or prosecute any alcohol or drug abuse patient.[facility] the event this information is protected by the Federal Confidentiality of Alcohol and Drug Abuse Patient Records regulations: The Federal rules restrict any use of the information to criminally investigate or prosecute any alcohol or drug abuse patient.[facility] the event this information is protected by the Federal Confidentiality of Alcohol and Drug Abuse Patient Records regulations: The Federal rules restrict any use of the information to criminally investigate or prosecute any alcohol or drug abuse patient.[facility] Health[facility] the event this information is protected by the Federal Confidentiality of Alcohol and Drug Abuse Patient Records regulations: The Federal rules restrict any use of the information to criminally investigate or prosecute any alcohol or drug abuse patient.[facility] the event this information is protected by the Federal Confidentiality of Alcohol and Drug Abuse Patient Records regulations: The Federal rules restrict any use of the information to criminally investigate or prosecute any alcohol or drug abuse patient.[facility] the event this information is protected by the Federal Confidentiality of Alcohol and Drug Abuse Patient Records regulations: The Federal rules restrict any use of the information to criminally investigate or prosecute any alcohol or drug abuse patient.[facility] the event this information is protected by the Federal Confidentiality of Alcohol and Drug Abuse Patient Records regulations: The Federal rules restrict any use of the information to criminally investigate or prosecute any alcohol or drug abuse patient.[facility] the event this information is protected by the Federal Confidentiality of Alcohol and Drug Abuse Patient Records regulations: The Federal rules restrict any use of the information to criminally investigate or prosecute any alcohol or drug abuse patient.[facility] the event this information is protected by the Federal Confidentiality of Alcohol and Drug Abuse Patient Records regulations: The Federal rules restrict any use of the information to criminally investigate or prosecute any alcohol or drug abuse patient.[facility] HealthIn the event this information is protected by the Federal Confidentiality of Alcohol and Drug Abuse Patient Records regulations: The Federal rules restrict any use of the information to criminally investigate or prosecute any alcohol or drug abuse patient.[facility] HealthIn the event this information is protected by the Federal Confidentiality of Alcohol and Drug Abuse Patient Records regulations: The Federal rules restrict any use of the information to criminally investigate or prosecute any alcohol or drug abuse patient.[facility] HealthIn the event this information is protected by the Federal Confidentiality of Alcohol and Drug Abuse Patient Records regulations: The Federal rules restrict any use of the information to criminally investigate or prosecute any alcohol or drug abuse patient.[facility]In the event this information is protected by the Federal Confidentiality of Alcohol and Drug Abuse Patient Records regulations: The Federal rules restrict any use of the information to criminally investigate or prosecute any alcohol or drug abuse patient.[facility] the event this information is protected by the Federal Confidentiality of Alcohol and Drug Abuse Patient Records regulations: The Federal rules restrict any use of the information to criminally investigate or prosecute any alcohol or drug abuse patient.[facility] HealthIn the event this information is protected by the Federal Confidentiality of Alcohol and Drug Abuse Patient Records regulations: The Federal rules restrict any use of the information to criminally investigate or prosecute any alcohol or drug abuse patient.[facility] HealthIn the event this information is protected by the Federal Confidentiality of Alcohol and Drug Abuse Patient Records regulations: The Federal rules restrict any use of the information to criminally investigate or prosecute any alcohol or drug abuse patient.[facility] Reason for Visit (unrecogniz ed section and content) Reason Comments Earwax Bilateral ear Specialty Diagnoses / Procedures Referred By Davidac t Referred To Contact Diagnoses Bilateral hearing loss, unspecified hearing loss type Procedures HEARING TEST/AUDIOGRAM COMPRE AUDIOMETRY THRESHOLD EVAL SP RECOGNIJ Naricso Guerra MD [address] [place] [address] [facility] [address] [place] [address] Referral ID Status Reason Start Date Expiration Date V isits Requested Visits Authorized [id number] Closed Auto-Generate d Referral 04/22/2022 07/21/2022 1 1 Reason Comments New Patient Evaluation Had sleep study d one. Specialty Diagnoses / Procedures Referred By Naseem t Referred To Contact Diagnoses Sleep apnea, unspecified type Sleep hypopnea Procedures CONSULT TO SLEEP MEDICINE - ADULT OFFICE/OUTPATIENT [facility] 60-74 MINUTES Narciso Guerra MD [address] [place] [address] Referral ID Status Reason Start Date Expiration Date V isits Requested Visits Authorized [id number] Closed PCP Requested Referral 04/28/2022 04/28/2023 1 1 Reason Comments Memory Loss Specialty Diagnoses / Procedures Referred By Naseem t Referred To Contact Neurology Diagnoses Memory loss Procedures CONSULT TO NEUROLOGY OFFICE/OUTPATIENT [facility] 60-74 MINUTES Narciso Guerra MD [address] [place] [address] Referral ID Status Reason Start Date Expiration Date V isits Requested Visits Authorized [id number] Closed PCP Requested Referral 06/22/2022 06/22/2023 1 1 Reason Comments Lumbar Puncture Reason Comments Memory Loss Reason Comments Sleep Apnea Reason Comments PAP Rx Faxed DME: [facility] Reason Comments Returning Patient's Call Reason Comments Refill Request Reason Comments PAP Therapy Follow Up 12/18/22 - 01/16/23 L AST FOUND DL FROM DME Reason Comments Research [facility] (IRB 19-366) I nterest Reason Comments Research [facility] (IRB 19-366) Specialty Diagnoses / Procedures Referred By Contac t Referred To Contact MR IMAGING Diagnoses Cognitive changes Procedures MRI BRAIN WO IVCON MRI BRAIN BRAIN STEM W/O CONTRAST MATERIAL Narciso Guerra MD [address] [place] [address] [place] [address] Referral ID Status Reason Start Date Expiration Date V isits Requested Visits Authorized [id number] Closed Auto-Generate d Referral 04/22/2022 06/06/2022 1 [...] BE BASED ON THE PRIMARY CLINICAL RECORDS. [facility]. provides no warranty or guarantee of the accuracy or completeness of information in this document.
[2024-07-02 17:39] VITALS: BP 119/49; PULSE 64; TEMP 36.1; BMI 26.5
--- NOTE | 2024-07-02 18:46 | P.HP_ITS ---
HPI H&P: HPI History of Present Illness Chief complaint: CONFUSION, FALL 3 WEEKS AGO Narrative: Patient with probable over your progressive nature of dementia. 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 I saw patient up in the medical surgical floor, definitely not himself he is definitely worse than when I saw him approximately a week or so ago in the office just prior to being placed and so did not place. Some movement disorder as well as just cognitively not aware, history comes from family, patient is a unable to give me any information Opioid HPI Opioid Management Most Recent Pain and Opioid Data: Last Pain Assessment 07/02/24 18:00 Last ORT Total Score 0 07/02/24 17:39 07/02/24 Last ORT Risk Category Low Risk 07/02/24 17:39 07/02/24 Ur Phencyclidine Scrn Negative (NEGATIVE) 06/25/24 18:35 0112/12 Review of Systems ROS Status of ROS 10 or more systems reviewed and unremark able except as noted in history and below PFSH PFS Medical History (Updated 07/02/24 @ 18:52 by Jae Cruz MD) Altered mental status ?R41.82 - Altered mental status, unspecified (ICD-10) GERD (gastroesophageal reflux disease) ?K21.9 - Gastro-esophageal reflux disease without esophagitis (ICD-10) Surgical History (Updated 07/02/24 @ 18:15 by Nicole Link) History of colostomy reversal ?Z98.890 - Other specified postprocedural states (ICD-10) H/O hernia repair ?Z98.890 - Other specified postprocedural states (ICD-10) ?Z87.19 - Personal history of other diseases of the digestive system (ICD-10) Family History (Updated 07/02/24 @ 18:16 by Nicole Link) Sister Family history of cancer Family history of diabetes mellitus Family history of hypertension Family history of stroke Mother Family history of diabetes mellitus Family history of hypertension Social History (Updated 07/02/24 @ 18:18 by Nicole Link) Within the past year, how often did you have a drink containing alcohol: never Score interpretation: A score less than 4 is consistent with normal alcohol consumption. Smoking status: Never smoker Non-prescribed substance use: denies use Previous occupational history: unemployed Highest level of school completed/degree received: Associate degree: academic program Are you now , , , , never or living with a partner: Little interest or pleasure in doing things: not at all Feeling down, depressed, or hopeless: not at all Meds Home Medications and Allergies Home Medications ?Medication ?Instructions ?Recorded ?Confirmed ?Type benztropine 1 mg tablet 1 mg PO BID 07/02/24 07/02/24 History brexpiprazole 2 mg tablet (Rexulti) 2 mg PO DAILY 07/02/24 07/02/24 History donepezil 5 mg tablet 5 mg PO .qhs 07/02/24 07/02/24 History fluoxetine 20 mg capsule 20 mg PO DAILY 07/02/24 07/02/24 History haloperidol 5 mg tablet 5 mg PO Q6H PRN agitation 07/02/24 07/02/24 History loperamide 2 mg capsule 2 mg PO Q6H PRN loose stool 07/02/24 07/02/24 History lorazepam 1 mg tablet (Ativan) 1 mg PO Q6H PRN anxiety 07/02/24 07/02/24 History omeprazole 40 mg capsule,delayed 40 mg PO DAILY 07/02/24 07/02/24 History release Allergies Allergy/AdvReac Type Severity Reaction Status Date / Time No Known Drug Allergies Allergy Verified 07/02/24 12:43 Exam Constitutional Vital Signs, click to edit/add: Last Vital Signs Temp 97 F L 07/02/24 17:39 Pulse 64 07/02/24 17:39 Resp 20 07/02/24 17:39 BP 119/49 07/02/24 17:39 Pulse Ox 100 07/02/24 12:35 O2 Del Method Room Air 07/02/24 17:39 Documenting provider has reviewed patient's vital signs: yes Common normals: no apparent distress Respiratory Common normals: normal respiratory effort and no retractions Cardio Common normals: regular rate and regular rhythm GI Common normals: Normal to inspection, nondistended, normoactive bowel sounds present Neuro Common normals: CN's II-XII intact bilaterally, moves all extremities and no focal motor deficits; not oriented x3 Speech: abnormal speech (Abnormal pattern); speech abnormal Psych Common normals: negative for mental status grossly normal and negative for thought process normal Results Labs Labs: Short CBC 07/02/24 Range/Units 14:07 WBC 4.9 (4.0-11.0) 10^3/uL Hgb 12.6 L (14.0-18.0) g/dL Hct 40.0 L (42.0-54.0) % Plt Count 159 (150-450) 10^3/uL BMP 07/02/24 14:07 Sodium 144 Potassium 4.4 Chloride 107 Carbon Dioxide 31.3 BUN 18.0 Creatinine 0.95 Glucose 104 Calcium 8.5 Liver Function 07/02/24 Range/Units 16:40 Total Bilirubin 0.5 (0.2-1.0) mg/dL Direct Bilirubin 0.1 (0.0-0.2) mg/dL AST 15 (15-37) U/L ALT 20 (16-63) U/L Alkaline Phosphatase 71 (46-116) U/L Albumin 3.4 (3.4-5.0) g/dL Assessment and Plan Assessment and Plan (1) Altered mental status: (2) Combative behavior: (3) Dementia without behavioral disturbance: (4) Acute delirium: Plan Admission findings: Acute alteration mental status, deteriorated over the last week, he has [facility] a [facility] for the last 5 days, this is definitely different with them when I saw him in the office a week or so ago. Labs are pending. Acute alteration mental status with progressive nature of his dementia-possibly related to side effect of the higher dose Rexulti, surgery was placed on he was on 2 mg, he had not even started the 0.5 mg daily dose from when I saw him in the office, will hold off on the 2 mg of Rexulti and go with just the 0.5 mg of Rexulti, hold off on any of the medications that are similar as he started to get appear to have movement type disorder, with acute alteration mental status, needs MRI brain for possible mini strokes versus effect of the small cyst noted on CT scan. Teleneurology consultation Progressive dementia-see above GERD-continue with home medications Admission status: Rapidly progressive alteration in mental status, definitely different than when I saw him a week ago, medically necessary treatment will span 2 midnights. Inpatient status.
[2024-07-02 20:00] VITALS: BP 135/22; PULSE 61; O2SAT 95
[2024-07-02 20:08] LABS: Bilirubin Urine NEGATIVE (NEGATIVE); Blood Urine NEGATIVE (NEGATIVE); Clarity Urine CLEAR (CLEAR); Color Urine LT. YELLOW (YELLOW); Glucose Urine UA NEGATIVE (NEGATIVE); Ketones Urine NEGATIVE (NEGATIVE); Leukocyte Esterase Urine NEGATIVE (NEGATIVE); Nitrite Urine NEGATIVE (NEGATIVE); Protein Urine NEGATIVE (NEG/TRACE); Urobilinogen Urine 0.2 EU/dL (0.2-1.0)
[2024-07-02] MEDS: BENZTROPINE MESYLATE 1 MG TABLET PO (20:12)
[2024-07-02] MEDS: LORAZEPAM 2 MG/ML VIAL IV (20:13)
[2024-07-02 20:17] LABS: Bacteria Urine NONE SEEN #/HPF (NONE SEEN); Cast Seen? NONE SEEN #/LPF (NONE SEEN); Crystals Seen? None Seen #/HPF (None Seen); Mucus Urine NONE SEEN (NONE SEEN); RBC Urine 0-2 #/HPF (0-2); Squamous Epithelial Cell Urine NONE SEEN #/LPF (NONE/RARE); Urine Culture Indicated NO; WBC Urine 0-2 #/HPF (NONE SEEN)
[2024-07-02 20:40] VITALS: O2SAT 95
[2024-07-02] MEDS: QUETIAPINE FUMARATE 25 MG TABLET PO (21:59)
[2024-07-02] MEDS: DONEPEZIL HCL 5 MG TABLET PO (21:59)
--- NOTE | 2024-07-03 | MR_ITS ---
The [address] [address] Patient Name: ESTELLA JEFFERY MRN: [id number] date: 1965 Sex: M Assigned Patient Location: [place] Current Patient Location: [place] Accession/Order Number: [id number] Exam Date: 07/03/2024 10:00 Report Date: 07/03/2024 12:01 At the request of: PAUL LOPEZ Procedure: MR head/brain wo con EXAM: MR head/brain wo con HISTORY: AMS, brain mass COMPARISON: CT head 07/02/2024. TECHNIQUE: Multiplanar multisequence MR imaging of the brain was performed without intravenous contrast. There is significant motion artifact on multiple sequences. Please note axial GRE imaging was not performed. FINDINGS: Calvarium/skull base: No focal marrow replacing lesion suggestive of neoplasm. Orbits: Grossly unremarkable. Paranasal sinuses: Imaged portions clear Brain: No restricted diffusion. Mild T2 FLAIR signal hyperintensities involving the supratentorial white matter which well nonspecific and most commonly relates to sequela of small vessel disease. 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 Stable parenchymal volume loss. No mass effect, hemorrhage, or hydrocephalus. Grossly normal flow-related signal in the major intracranial arteries and dural sinuses. MR/MR head/brain wo con IMPRESSION: 1. No acute ischemia. 2. 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 No hydrocephalus. Electronically authenticated by: MEHNAZ PANCHAL Date: 07/03/2024 12:01
[2024-07-03] MEDS: 0.9 % SODIUM CHLORIDE 1,000 ML 100 ML IV (01:31)
[2024-07-03 04:00] VITALS: BP 127/82; PULSE 51; TEMP 36.3; O2SAT 96
[2024-07-03 05:20] LABS: Basophils Percent Auto 0.7 % (0.2-2.0); Eosinophils Absolute Auto 0.1 10^3/uL (0.0-0.7); Eosinophils Percent Auto 1.4 % (0.9-7.0); Hematocrit 43.8 % (42.0-54.0); Hemoglobin 13.6 g/dL (14.0-18.0); Immature Granulocytes Abs Auto 0.01 10^3/uL (0.00-0.03); Immature Granulocytes Pct Auto 0.2 % (0.0-0.5); Lymphocytes Absolute Auto 1.3 10^3/uL (1.2-3.8); Lymphocytes Percent Auto 29.2 % (20.5-60.0); Mean Corpuscular HGB Conc 31.1 g/dL (29.9-35.2); Mean Corpuscular Hemoglobin 24.2 pg (25.9-34.0); Mean Corpuscular Volume 77.9 fL (80.0-94.0); Mean Platelet Volume 11.6 fL (9.5-13.5); Monocytes Absolute Auto 0.3 10^3/uL (0.3-0.8); Monocytes Percent Auto 7.3 % (1.7-12.0); Neutrophils Absolute Auto 2.7 10^3/uL (1.4-6.5); Neutrophils Percent Auto 61.2 % (43.0-75.0); Platelet Count 129 10^3/uL (150-450); Red Blood Count 5.62 10^6/uL (4.70-6.10); Red Cell Distribution Width 14.4 % (11.0-15.0); White Blood Count 4.4 10^3/uL (4.0-11.0)
[2024-07-03 05:39] LABS: Anion Gap 12.2; BUN Creatinine Ratio 15.3; Calcium 8.5 mg/dL (8.5-10.1); Carbon Dioxide 27.8 mmol/L (21.0-32.0); Chloride 108 mmol/L (98-107); Estimated GFR (African America >60 (>=60 mL/min/1.73m^2); Estimated GFR (Non-African Ame >60 (>=60 mL/min/1.73m^2); Glucose 81 mg/dL (74-106); Sodium 144 mmol/L (136-145)
--- NOTE | 2024-07-03 06:18 | P.PN_ITS ---
Progress Note: Subjective Subjective Interval history: Patient slept pretty well last night, nurses noted as well as family that the reactions became worse after getting the Ativan even at the higher dose Exam Constitutional Vital Signs, click to edit/add: Last Vital Signs Temp 97.4 F L 07/03/24 04:00 Pulse 51 L 07/03/24 04:00 Resp 18 07/03/24 04:00 BP 127/82 07/03/24 04:00 Pulse Ox 96 07/03/24 04:00 O2 Del Method Room Air 07/03/24 04:00 Documenting provider has reviewed patient's vital signs: yes Common normals: apparent distress (Freq movements - not able to focus) Chest Common normals: inspection of chest normal Respiratory Common normals: normal respiratory effort and no retractions Cardio Common normals: regular rate and regular rhythm Neuro Sensorium/orientation: awake, oriented to place and oriented to time; not alert and not oriented to person Progress Note: Objective Labs Labs: Short CBC 07/02/24 07/03/24 Range/Units 14:07 04:34 WBC 4.9 4.4 (4.0-11.0) 10^3/uL Hgb 12.6 L 13.6 L (14.0-18.0) g/dL Hct 40.0 L 43.8 (42.0-54.0) % Plt Count 159 129 L (150-450) 10^3/uL BMP 07/02/24 07/03/24 14:07 04:34 Sodium 144 144 Potassium 4.4 4.0 Chloride 107 108 H Carbon Dioxide 31.3 27.8 BUN 18.0 13.0 Creatinine 0.95 0.85 Glucose 104 81 Calcium 8.5 8.5 Liver Function 07/02/24 Range/Units 16:40 Total Bilirubin 0.5 (0.2-1.0) mg/dL Direct Bilirubin 0.1 (0.0-0.2) mg/dL AST 15 (15-37) U/L ALT 20 (16-63) U/L Alkaline Phosphatase 71 (46-116) U/L Albumin 3.4 (3.4-5.0) g/dL Urine 07/02/24 Range/Units 19:57 Urine Color Lt. yellow (YELLOW) Urine Clarity Clear (CLEAR) Urine pH 7.0 (5.0-9.0) Ur Specific [place] 1.010 (1.005-1.025) Urine Protein Negative (NEG/TRACE) mg/dL Urine Glucose (UA) Negative (NEGATIVE) mg/dL Progress Note: A&P Assessment and Plan (1) Altered mental status: (2) Combative behavior: (3) Dementia without behavioral disturbance: (4) Acute delirium: Plan Admission findings: Acute delirium, deteriorated over the last week, he has been a [facility] place for the last 5 days, this is definitely different with them when I saw him in the office a week or so ago. Labs are pending. Acute delerium with progressive nature of his dementia-possibly related to side effect of the higher dose Rexulti, at [facility] was placed on he was on 2 mg, he had not even started the 0.5 mg daily dose from when I saw him in the office, will hold off on the 2 mg of Rexulti and go with just the 0.5 mg of Rexulti, hold off on any of the medications that are similar as he started to get appear to have movement type disorder, with acute alteration mental status, needs MRI brain for possible mini strokes versus effect of the small cyst noted on CT scan. Teleneurology consultation, consideration for transfer for further eval for acute delirium - did respond well to seroquel last night - so will skip rexulti and go with seroquel Idiosyncratic reaction to benzodiazepines-will hold off on that, discuss any other potential sedation medications that may be needed with teleneurology Progressive dementia-see above GERD-continue with home medications Admission status: Rapidly progressive alteration in mental status, definitely different than when I saw him a week ago, medically necessary treatment will span 2 midnights. Inpatient status. ?
[2024-07-03 07:40] VITALS: BP 134/83; PULSE 60; TEMP 36.6; O2SAT 95
--- NOTE | 2024-07-03 07:59 | CM.NOTE ---
Discussed with pt and Important Message From Medicare, verbalizes understanding and signs paper. Original given to pt and copy placed on pt's chart.
[2024-07-03] MEDS: OMEPRAZOLE 40 MG CAPSULE.DR PO (08:40)
[2024-07-03] MEDS: BENZTROPINE MESYLATE 1 MG TABLET PO ×2 (08:40→21:02)
[2024-07-03] MEDS: FLUOXETINE HCL 20 MG CAPSULE PO (08:40)
[2024-07-03] MEDS: DIPHENHYDRAMINE HCL 50 MG/ML VIAL IV (09:33)
[2024-07-03 11:17] VITALS: O2SAT 97
[2024-07-03 12:25] VITALS: BP 122/76; PULSE 60; O2SAT 97
--- NOTE | 2024-07-03 13:17 | SWNOTE1 ---
SW was consulted for SNF. See case management note. Pt is from home. SW to review therapy notes and follow as needed.
[2024-07-03] MEDS: HALOPERIDOL LACTATE 5 MG/ML VIAL IV (14:34)
[2024-07-03 16:22] VITALS: BP 115/72; PULSE 54; TEMP 36.3; O2SAT 97
[2024-07-03 20:18] VITALS: BP 144/98; PULSE 97; TEMP 36.4; O2SAT 96
[2024-07-03] MEDS: QUETIAPINE FUMARATE 25 MG TABLET 50 MG PO (21:02)
[2024-07-03] MEDS: DONEPEZIL HCL 5 MG TABLET PO (21:03)
[2024-07-04 03:08] LABS: Vitamin B12 474 pg/mL (232-1245)
[2024-07-04 04:00] VITALS: BP 124/78; PULSE 64; TEMP 36.3; O2SAT 96
--- NOTE | 2024-07-04 07:48 | P.PN_ITS ---
Progress Note: Subjective Subjective Interval history: Had a decent night sleeping, did not awaken when I came into the room, but fell back to sleep, discussed care with sister and Exam Constitutional Vital Signs, click to edit/add: Last Vital Signs Temp 97.4 F L 07/04/24 04:00 Pulse 64 07/04/24 04:00 Resp 18 07/04/24 04:00 BP 124/78 07/04/24 04:00 Pulse Ox 96 07/04/24 04:00 O2 Del Method Room Air 07/04/24 04:00 Documenting provider has reviewed patient's vital signs: yes Common normals: no apparent distress (Sleeping) Respiratory Common normals: normal respiratory effort and no use of accessory muscles Cardio Common normals: regular rate GI Common normals: Normal to inspection, nondistended, normoactive bowel sounds present Progress Note: A&P Assessment and Plan (1) Altered mental status: (2) Combative behavior: (3) Dementia without behavioral disturbance: (4) Acute delirium: Plan Admission findings: Acute delirium, deteriorated over the last week, [facility] for the last 5 days, this is definitely different with them when I saw him in the office a week or so ago. Labs are pending. Acute delerium with progressive nature of his dementia-has had idiosyncratic reactions so far to Ativan and IV Benadryl, were able to complete the initial portion of the MRI scan yesterday. Will have teleneurology review that. Idiosyncratic reaction to benzodiazepines-will hold off on that, discuss any ot her potential sedation medications that may be needed with teleneurology Progressive dementia-see above, needs placement for continued treatment with the plan still being for her once medications were adjusted being able to be go home GERD-continue with home medications Admission status: Rapidly progressive alteration in mental status, definitely different than when I saw him a week ago, medically necessary treatment will span 2 midnights. Inpatient status. ?
[2024-07-04 07:49] VITALS: BP 114/71; PULSE 55; O2SAT 97
[2024-07-04] MEDS: FLUOXETINE HCL 20 MG CAPSULE PO (08:48)
[2024-07-04] MEDS: BENZTROPINE MESYLATE 1 MG TABLET PO ×2 (08:48→20:23)
[2024-07-04 11:36] VITALS: O2SAT 96
--- NOTE | 2024-07-04 11:50 | SWNOTE1 ---
SW had another order from doctor for placement for pt. SW did reach out to doctor to see what kind of placement pt will need. Psych placement. SW stopped in to speak with pt and family. Pt's and sister were in room. Pt and sitting on couch. SW spoke with pt and family about discharge planning. Family spoke about [facility] and that when he was there they just medicated him and they are not alright with this. They stated he did not sleep there and they gave him Benadryl and they were promised he would have follow up medical attention at [facility] in regards to MRI and xrays. They stated he will not go back there. SW asked them what is there goal from here and their plans for patient? The number one things family wants to know is if pt will see tele neurology today. They are hoping pt will need transferred to [place] for neurology. They voiced they feel it is to early for placement and they would like to have more medical answers. Theses behaviors and episodes are not his normal. The stated on Tuesday he went [facility] Pt was diagnosed with Dementia 3 years ago at [facility]. SW asked if they follow up? She stated once a year unless there is a change. She stated he has an apt in July with [facility], but it will be on the computer. Pt's sister voiced that she does not feel him being placed at this time will be beneficial. SW did let her know any psych facility will be looking at his medications and there will be a chance they will adjust medications. She would also like to know the meds he got this morning, family feels that they have helped. SW did ask if he was on medication for Dementia. The stated he is, but the sister was not sure he took it everyday. The voiced initially he was not, but then stated he does take it everyday. SW did let them know that with Dementia there may be times where he is doing really well, and then it can be different and change for a few days. SW expressed that it may be a roller coaster at times of highs and lows. They did voiced understanding. Sister voiced that he is young and they are not giving up on him and he deserves to have a life. Family does not feel placement at this time is appropriate. SW to find out if neurology is seeing him again today and about the medications. SW spoke to nursing and pt will have tele neurology again today and nurse will go speak with them about meds. TRUDI let Dr. Cruz know this information.
[2024-07-04] MEDS: ACETAMINOPHEN 500 MG TABLET 1000 MG PO (13:04)
--- NOTE | 2024-07-04 14:50 | SWNOTE1 ---
SW spoke to nurse, still waiting on teleneuro.
[2024-07-04 17:02] VITALS: BP 121/81; PULSE 58; TEMP 36.4; O2SAT 94
--- NOTE | 2024-07-04 19:20 | PC.NURSE ---
Neurology did not see patient today. They did call but I was in another patient's room helping them toilet so I was unable to answer the phone. They never did return call. Family was not concerned with this as they feel he improved today.
[2024-07-04 19:30] VITALS: BP 115/73; PULSE 59; TEMP 36.8; O2SAT 92
[2024-07-04] MEDS: QUETIAPINE FUMARATE 25 MG TABLET 75 MG PO (20:23)
[2024-07-04] MEDS: DONEPEZIL HCL 5 MG TABLET PO (20:23)
[2024-07-04 20:44] VITALS: O2SAT 92
[2024-07-05] VITALS (8 sets, daily range): BP systolic 108–132; BP diastolic 69–84; PULSE 52–68; TEMP 36.3–37; O2SAT 3–96
--- NOTE | 2024-07-05 07:28 | XR_ITS ---
The [address] [address] Patient Name: ESTELLA JEFFERY MRN: [id number] date: 1965 Sex: M Assigned Patient Location: MS Current Patient Location: MS Accession/Order Number: [id number] Exam Date: 07/05/2024 09:40 Report Date: 07/05/2024 10:31 At the request of: PAUL LOPEZ Procedure: XR acute abdomen series EXAMINATION: XR acute abdomen series HISTORY: nausea COMPARISON: No relevant comparison available. FINDINGS: LUNGS: No infiltrate, pneumothorax, or pleural effusion. MEDIASTINUM: No abnormal widening. BOWEL GAS PATTERN: Gaseous distention of small bowel loops primarily in the left upper quadrant measuring up to 5.1 cm. Paucity of air in the descending colon with a small amount of air in the distal sigmoid colon FREE AIR: None. CALCIFICATIONS: None significant. BONES: No fracture or visible bone lesion. OTHER: Negative. XR/XR acute abdomen series IMPRESSION: Clear lungs Possible small bowel obstruction Electronically authenticated by: SHANTA CARRENO Date: 07/05/2024 10:31
--- NOTE | 2024-07-05 07:30 | P.DS_ITS ---
DS: Providers Provider Date of admission: 07/02/24 17:30 Primary care physician: Jae Cruz MD Consults: 07/02/24 16:15 Consult to Pharmacy Routine Consulting Provider: Reason for consultation: Please [place] me when Med Rec is Updated Has provider been notified: No Consult to TeleNeurology Routine Reason for consultation: ams, brain mass 07/02/24 18:52 Consult to Pharmacist Per Diem Routine Reason for consult:: Intermediate Other reason:: placement 07/04/24 07:44 Consult to Pharmacist Per Diem Routine Reason for consult:: Intermediate Other reason:: Placement today? 07/05/24 07:27 Consult to TeleNeurology ONCE Reason for consultation: DERIC - now with different moevement disorder DS: Diagnosis Discharge Diagnosis (1) Altered mental status: (2) Combative behavior: (3) Dementia without behavioral disturbance: (4) Acute delirium: Plan Admission findings: Acute delirium, deteriorated over the last week, [facility] for the [facility] 5 days, this is definitely different with them when I saw him in the office a week or so ago. Labs are pending. Acute delerium with progressive nature of his dementia-has had idiosyncratic reactions so far to Ativan and IV Benadryl, were able to complete the initial portion of the MRI scan yesterday. Will have teleneurology review that. Idiosyncratic reaction to benzodiazepines-will hold off on that, discuss any other potential sedation medications that may be needed with teleneurology Progressive dementia-see above, needs placement for continued treatment with the plan still being for her once medications were adjusted being able to be go home GERD-continue with home medications Admission status: Rapidly progressive alteration in mental status, definitely different than when I saw him a week ago, medically necessary treatment will span 2 midnights. Inpatient status. ? ? DS: Summary Hospital Course Hospital Course: Patient was seen in my office about a week or so ago, started having lashing out symptoms, some hallucinations, this is all progression of his dementia, he been treated for his dementia for well over a year, patient it was felt at that time was not safe to be at home, he was placed in geriatric psychiatric unit, he was given multiple medications here but condition deteriorated, start having a lot of movement disorder in acute delirium, he was admitted here, medications were adjusted, it appears he is having a reaction to IV Ativan and IV Benadryl, this morning however he says which she has not been on those medications he is having a different movement disorder, will discuss with teleneurology, at this point likely needs transfer to a tertiary care facility for continued evaluation for his acute delirium on top of his dementia and now with the movement disorder Time Spent with Patient Time attestation: Total time spent providing and/or coordinating discharge services: Exam Constitutional Vital Signs, click to edit/add: Last Vital Signs Temp 97.4 F L 07/05/24 06:03 Pulse 63 07/05/24 06:03 Resp 18 07/05/24 06:03 BP 112/69 07/05/24 06:03 Pulse Ox 96 07/05/24 06:03 O2 Del Method Room Air 07/05/24 06:03 Documenting provider has reviewed patient's vital signs: yes Common normals: apparent distress (Jerking type movement disorder) Chest Common normals: inspection of chest normal Respiratory Common normals: normal respiratory effort and no retractions Cardio Common normals: regular rate and regular rhythm GI Common normals: Normal to inspection, nondistended, normoactive bowel sounds present and soft to palpation; tender (Describing mild diffuse tenderness) Neuro Common normals: not oriented x3 Sensorium/orientation: awake; not alert Discharge Plan [facility] Condition: Fair Discharge Date/Time: 07/06/24 05:46 Discharge Location: [facility]
--- NOTE | 2024-07-05 07:30 | PC.NURSE ---
tele neuro paged
[2024-07-05 07:58] LABS: Basophils Percent Auto 0.5 % (0.2-2.0); Eosinophils Absolute Auto 0.1 10^3/uL (0.0-0.7); Hemoglobin 13.6 g/dL (14.0-18.0); Immature Granulocytes Abs Auto 0.01 10^3/uL (0.00-0.03); Immature Granulocytes Pct Auto 0.2 % (0.0-0.5); Lymphocytes Absolute Auto 1.1 10^3/uL (1.2-3.8); Lymphocytes Percent Auto 19.5 % (20.5-60.0); Mean Corpuscular HGB Conc 31.6 g/dL (29.9-35.2); Mean Corpuscular Hemoglobin 24.1 pg (25.9-34.0); Mean Corpuscular Volume 76.1 fL (80.0-94.0); Mean Platelet Volume 9.5 fL (9.5-13.5); Monocytes Absolute Auto 0.5 10^3/uL (0.3-0.8); Monocytes Percent Auto 8.7 % (1.7-12.0); Neutrophils Absolute Auto 4.1 10^3/uL (1.4-6.5); Neutrophils Percent Auto 70.1 % (43.0-75.0); Platelet Count 167 10^3/uL (150-450); Red Blood Count 5.65 10^6/uL (4.70-6.10); Red Cell Distribution Width 14.2 % (11.0-15.0); White Blood Count 5.9 10^3/uL (4.0-11.0)
[2024-07-05 08:13] LABS: Ammonia 17 umol/L (11-32)
[2024-07-05 08:14] LABS: Magnesium 2.1 mg/dL (1.8-2.4)
[2024-07-05 08:15] LABS: Alanine Aminotransferase 17 U/L (16-63); Albumin Globulin Ratio 0.9; Albumin Level 3.1 g/dL (3.4-5.0); Alkaline Phosphatase 70 U/L (46-116); Amylase 53 U/L (25-115); Anion Gap 10.5; Aspartate Amino Transferase 14 U/L (15-37); BUN Creatinine Ratio 25.3; Bilirubin Total 0.7 mg/dL (0.2-1.0); Calcium 8.5 mg/dL (8.5-10.1); Carbon Dioxide 30.5 mmol/L (21.0-32.0); Chloride 107 mmol/L (98-107); Estimated GFR (African America >60 (>=60 mL/min/1.73m^2); Estimated GFR (Non-African Ame >60 (>=60 mL/min/1.73m^2); Globulin 3.3 g/dL; Glucose 92 mg/dL (74-106); Sodium 144 mmol/L (136-145); Total Protein 6.4 g/dL (6.4-8.2)
--- NOTE | 2024-07-05 10:30 | PC.NURSE ---
tele neuro paged again, no response
--- NOTE | 2024-07-05 10:44 | SWNOTE1 ---
SW waiting on teleneuro consult.
[2024-07-05] MEDS: BENZTROPINE MESYLATE 1 MG TABLET PO ×2 (10:46→21:25)
[2024-07-05] MEDS: FLUOXETINE HCL 20 MG CAPSULE PO (10:46)
--- NOTE | 2024-07-05 13:28 | PC.NURSE ---
teleneuro paged again. awaiting response
--- NOTE | 2024-07-05 14:42 | PC.NURSE ---
teleneuro in progress, dr laguna notified
--- NOTE | 2024-07-05 16:05 | SWNOTE1 ---
Teleneuro complete. Unsure of dc plan at this time, teleneuro requested MRI.
[2024-07-05] MEDS: DONEPEZIL HCL 5 MG TABLET PO (21:25)
[2024-07-05] MEDS: QUETIAPINE FUMARATE 25 MG TABLET 75 MG PO (21:25)
[2024-07-06 00:42] VITALS: BP 111/72; PULSE 67; TEMP 36.6; O2SAT 93
[2024-07-06 04:00] VITALS: BP 96/57; PULSE 64; TEMP 36.6; O2SAT 96
== END 2024-07-06 05:46 | disposition short-term general hospital (02) | DRG 884 ==
LOC: ER 16:36 → MS 17:25
PROVIDERS: Admitting Provider Family Medicine; Emergency Provider Emergency Medicine; PCP Family Medicine; Visit Provider Family Medicine
DX: F03.911 Unspecified dementia, unspecified severity, with agitation (principal); F05 Delirium due to known physiological condition; G25.9 Extrapyramidal and movement disorder, unspecified; Q04.6 Congenital cerebral cysts; F03.92 Unspecified dementia, unspecified severity, with psychotic disturbance; R41.82 Altered mental status, unspecified; T42.4X5A Adverse effect of benzodiazepines, initial encounter; T45.0X5A Adverse effect of antiallergic and antiemetic drugs, initial encounter; Y92.10 Unspecified residential institution as the place of occurrence of the external cause; Z79.899 Other long term (current) drug therapy
CPT/HCPCS: 36415; 70450; 70551; 71045; 74022; 80048; 80053; 80076; 81001; 82140; 82150; 82607; 82746; 83605; 83690; 83735; 85025; 93005; 94761; 96361; 96374; 96376; 99285; J1200; J1630; J2060

== ENCOUNTER 2024-08-09 23:10 | Observation (INO) | payer OTHER, SELFPAY ==
[2024-08-09 23:14] VITALS: BP 131/90; PULSE 89; TEMP 36.6; O2SAT 97; BMI 25.8
--- NOTE | 2024-08-09 23:20 | ECG_ITS ---
The [facility] Test Date: 2024-08-09 Pat Name: ESTELLA JEFFERY Department: Room: - Gender: Male Mri Supervisor: : 1965 Requested By: PAUL LOPEZ Order Number: [id number] Reading MD: PAUL LOPEZ Measurements Intervals [place] Rate: 79 P: 50 TN: 142 QRS: 19 QRSD: 86 T: 31 QT: 360 QTc: 394 Interpretive Statements 1100 Sinus rhythm 8102 Low QRS voltage in chest leads 9120 atypical ECG Compared to ECG 07/02/2024 13:54:09 First degree AV block no longer present ST (T wave) deviation no longer present Electronically Signed On 08-10-2024 6:41:36 EST by PAUL LOPEZ
--- NOTE | 2024-08-09 23:23 | ED_ITS ---
HPI HPI - General Adult General Chief complaint: Altered Mental Status Stated complaint: AMS Time Seen by Provider: 08/09/24 23:20 Source: unable to obtain Mode of arrival: ambulance Limitations: altered mental status and other Limitations comment: history of TBI History of Present Illness HPI narrative: Patient is a 59-year-old male who is presenting by with chief complaint of history of dementia, traumatic brain injury. Chief concern is patient having aggressive behavior at home and hallucinations. Patient lives at home with family. EMS gave patient Versed IM 5 mg prior to arrival. Patient vital signs were stable before patient arrived, his blood sugar was 120. Patient is a full code. patient had a traumatic brain injury several months ago. Patient's sister and are at bedside, they are good historians. Patient has a history of dementia, patient was diagnosed with dementia 3 to 4 years ago. Unknown reason why patient has dementia, not related to alcohol. Patient worked in [email or web address] for 20-30 years previously, family wonders if it is related to this or not. Patient had a fall in May,June 09. Patient initially was seen in the ER at that time for leg pain, they did not know about any type of head injury at that time. Patient's been admitted to [facility] several times, to [facility] facility as well secondary to hallucinations, delirium. Patient was recently sent to [facility] where he was admitted, had MRI of the brain, and it noted that patient had a TBI from his fall back in May. Patient was seen by neurologist and psychiatrist at that time. Patient was placed on certain medications that were stopped and patient is on additional medications at this time to help manage TBI and some of his dementia. Depakote is one of them. Tonight, patient went to bed at 7 PM. Patient woke up around 9 PM thinking that people in the house, and then he woke up his . Patient was very forceful and stating we needed call the police because people in the house attacking them. Patient was hallucinating seeing things, he was not aggressive or combative to his . They had spoken to his sister on the phone, she came over to the house and patient try to get his sister to call the police because people were in the house attacking them. EMS was called. He was not combative or physical, but he is very defiant. states that when he does sleep, when he wakes up he will be out of it and slightly delirious and then it typically wears off. Patient was discharged from [facility] July 22. Patient has not had any significant episodes like he did tonight since July 22. Patient has been to the hospital several times previously for episodes like tonight with hallucinating and delirious. The paranoia has not been present since he has been discharged from the hospital in July 22 like it has been tonight. EMS gave patient 5 mg of Versed prior to arrival. Patient when he got here is alert and orient x 0. When I interviewed patient, he knew name, hospital, but did not know time. Patient is looking around the room, looks confused. Will answer questions in short word answers. All systems are negative except as noted/marked. All systems reviewed and otherwise negative. Nurses note and vital signs reviewed and patient is not hypoxic. General: The patient appears well and in no apparent distress. Patient is resting comfortably on cart. Patient is not toxic, lethargic, or listless Skin: Warm, dry, no pallor noted. There is no rash noted. No petechiae, purpura. Head: Normocephalic, atraumatic; no scalp hematoma, no signs of trauma., No midline or paracervical tenderness to palpation. Full range of motion of diffi culty. Eye: Normal conjunctiva, no drainage, EOMI. PERRL 4/2, equal, bilateral. Ears, Nose, Mouth, and Throat: oral mucosa is moist. Nares patent. Mouth without vesicles. Cardiovascular: Regular Rate and Rhythm, no murmur, gallop, rub Respiratory: Patient is in no distress, no accessory muscle use, lungs are clear to auscultation, no wheezing, rales or rhonchi Back: non-tender, no CVA tenderness bilaterally to percussion. No CT LS midline pain GI: no tenderness to palpation, no masses appreciated. No rebound, guarding, or rigidity noted. No distention Musculoskeletal: Patient has full range of motion of all of the extremities, no motor, sensory, or focal neurological deficits Neurological: A&O x2, confused to time, normal speech with short word answers. No strokelike signs or symptoms. Psychiatric: Cooperative, slightly paranoid, looking around the room confused Related Data Home Medications ?Medication ?Instructions ?Recorded ?Confirmed donepezil 5 mg tablet 5 mg PO .qhs 07/02/24 08/09/24 divalproex 125 mg capsule,delayed 500 mg PO Q12H 08/09/24 08/09/24 release sprinkle duloxetine 20 mg capsule,delayed 20 mg PO DAILY 08/09/24 08/09/24 release quetiapine 50 mg tablet 200 mg PO DAILY 08/09/24 08/09/24 Allergies Allergy/AdvReac Type Severity Reaction Status Date / Time No Known Drug Allergies Allergy Verified 08/09/24 23:17 Opioid HPI Opioid Management Most Recent Opioid Data: Last ORT Total Score 0 07/02/24 17:39 07/02/24 Last ORT Risk Category Low Risk 07/02/24 17:39 07/02/24 Ur Phencyclidine Scrn Negative (NEGATIVE) 06/25/24 18:35 12/12 [facility] Medical History (Updated 08/10/24 @ 00:46 by Kyler Briscoe MD) Acute delirium ?R41.0 - Disorientation, unspecified (ICD-10) Altered mental status ?R41.82 - Altered mental status, unspecified (ICD-10) Combative behavior ?R46.89 - Other symptoms and signs involving appearance and behavior (ICD-10) Dementia without behavioral disturbance ?F03.90 - Unspecified dementia, unspecified severity, without behavioral disturbance, psychotic disturbance, mood disturbance, and anxiety (ICD-10) Altered mental status ?R41.82 - Altered mental status, unspecified (ICD-10) GERD (gastroesophageal reflux disease) ?K21.9 - Gastro-esophageal reflux disease without esophagitis (ICD-10) Surgical History (Updated 07/02/24 @ 18:15 by Nicole Link) History of colostomy reversal ?Z98.890 - Other specified postprocedural states (ICD-10) H/O hernia repair ?Z98.890 - Other specified postprocedural states (ICD-10) ?Z87.19 - Personal history of other diseases of the digestive system (ICD-10) Family History (Updated 07/02/24 @ 18:16 by Nicole Link) Sister Family history of cancer Family history of diabetes mellitus Family history of hypertension Family history of stroke Mother Family history of diabetes mellitus Family history of hypertension Social History (Updated 07/02/24 @ 18:18 by Nicole Link) Within the past year, how often did you have a drink containing alcohol: never Score interpretation: A score less than 4 is consistent with normal alcohol consumption. Smoking status: Never smoker Non-prescribed substance use: denies use Previous occupational history: unemployed Highest level of school completed/degree received: Associate degree: academic program Are you now , , , , never or living with a partner: Little interest or pleasure in doing things: not at all Feeling down, depressed, or hopeless: not at all Exam Constitutional Vital Signs, click to edit/add: Last Vital Signs Temp 98 F 08/09/24 23:14 Pulse 66 08/10/24 00:30 Resp 13 08/10/24 00:30 BP 131/90 08/09/24 23:14 Pulse Ox 98 08/10/24 00:02 O2 Del Method Room Air 08/09/24 23:14 Course Vital Signs Vital signs: Vital Signs Temperature 98 F 08/09/24 23:14 Pulse Rate 89 08/09/24 23:14 Respiratory Rate 18 08/09/24 23:14 Blood Pressure 131/90 08/09/24 23:14 Pulse Oximetry 97 08/09/24 23:14 Oxygen Delivery Method Room Air 08/09/24 23:14 Temperature 98 F 08/09/24 23:14 Pulse Rate 66 08/10/24 00:30 Respiratory Rate 13 08/10/24 00:30 Blood Pressure 131/90 08/09/24 23:14 Pulse Oximetry 98 08/10/24 00:02 Oxygen Delivery Method Room Air 08/09/24 23:14 Medical Decision Making [facility] Narrative Medical decision making narrative: Patient was discharged from the [facility] on July 22 of this year. Patient was placed on medication to help with dementia and hallucinations and help with TBI from neurology and psychiatry. There is a list of medications that patient should not be on, there is a copy in patient's chart of this. Patient's sister and have been at bedside. They brought all the paperwork and medications that patient is currently on, and medications that he should not be on which was helpful. Patient's TSH is elevated at 5. Patient BUN is 35. CT of the brain and chest x-ray showed no significant findings. Lab work shows no other significant findings. Urine drug screen are still pending. Patient was given 1 L of IV fluids secondary to BUN of 35. Patient's BUN is typically normal, today's creatinine was normal. Patient will be admitted to the intensive care unit to Dr. Campos for monitoring. CT of the brain shows no acute intracranial process. Chest x-ray shows mild pulmonary vascular congestion, the images were read by Dr. Pavel HARRY. 1240 I spoke to Desi ZUNIGA. Patient will be admitted to the ICU for observation to Dr. Cruz for medical management and reevaluation. Patient's sister and have been at bedside. They adamantly did not want patient transferred up to the [facility], they do not want patient going back to [facility]. conveyor worker and child support case officer will try to get patient to a TBI residential/rehab unit and they were not excepted to 2 different places in [place] for unknown reasons to the family. Patient will be admitted for further observation and medical treatment as needed. There is a list in the chart of patient's medications, also a list of patient's medications that he should stop taking that were not helpful and actually cause adverse effects. There has been greater than 30 minutes spent at bedside reevaluating the patient, speaking to sister and who are excellent historians as well in patient's care. Patient developed dementia 3 to 4 years ago, for unknown reasons. 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 Patient had TBI head injury in May. Critical care time 31 minutes exclusive from separate billable procedures that were performed. The following was considered in the determination of critical care but not limited to the level of medical decision making, intensive cardiac and/or respiratory monitoring, frequent vital sign monitoring, evaluation of laboratory studies, evaluation of radiographic studies, oxygen monitoring, and constant monitoring and speaking to family at bedside Lab Data Lab results reviewed: Yes I reviewed the patient's lab results Labs: Lab Results 08/09/24 08/09/24 Range/Units 23:25 23:35 WBC 4.0 (4.0-11.0) 10^3/uL RBC 5.43 (4.70-6.10) 10^6/uL Hgb 13.2 L (14.0-18.0) g/dL Hct 42.3 (42.0-54.0) % MCV 77.9 L (80.0-94.0) fL MCH 24.3 L (25.9-34.0) pg MCHC 31.2 (29.9-35.2) g/dL RDW 14.6 (11.0-15.0) % Plt Count 93 L (150-450) 10^3/uL MPV 10.5 (9.5-13.5) fL Neut % (Auto) 56.5 (43.0-75.0) % Lymph % (Auto) 33.7 (20.5-60.0) % Stephens % (Auto) 7.7 (1.7-12.0) % Eos % (Auto) 1.2 (0.9-7.0) % Baso % (Auto) 0.7 (0.2-2.0) % Neut # (Auto) 2.3 (1.4-6.5) 10^3/uL Lymph # (Auto) 1.4 (1.2-3.8) 10^3/uL Stephens # (Auto) 0.3 (0.3-0.8) 10^3/uL Eos # (Auto) 0.1 (0.0-0.7) 10^3/uL Baso # (Auto) 0.0 (0.0-0.1) 10^3/uL Abs Immat Gran (auto) 0.01 (0.00-0.03) 10^3/uL Imm/Tot Granulo (auto) 0.2 (0.0-0.5) % VBG pH 7.389 (7.330-7.430) VBG pCO2 50.6 (40.0-52.0) mmHg Sodium 141 (136-145) mmol/L Potassium 4.3 (3.5-5.1) mmol/L Chloride 106 (98-107) mmol/L Carbon Dioxide 30.8 (21.0-32.0) mmol/L Anion Gap 8.5 BUN 35.0 H (7.0-18.0) mg/dL Creatinine 1.10 (0.70-1.30) mg/dL Est GFR ( Amer) >60 (>=60 mL/min/1.73m^2) Est GFR (Non-Af Amer) >60 (>=60 mL/min/1.73m^2) BUN/Creatinine Ratio 31.8 Glucose 98 (74-106) mg/dL Calcium 8.2 L (8.5-10.1) mg/dL Magnesium 2.0 (1.8-2.4) mg/dL Total Bilirubin 0.2 (0.2-1.0) mg/dL AST 14 L (15-37) U/L ALT 24 (16-63) U/L Alkaline Phosphatase 55 (46-116) U/L Troponin I High Sens 4.4 (4.0-76.1) pg/mL Total Protein 6.3 L (6.4-8.2) g/dL Albumin 3.0 L (3.4-5.0) g/dL Globulin 3.3 g/dL Albumin/Globulin Ratio 0.9 TSH 5.293 H (0.358-3.740) uIU/mL Valproic Acid 87.7 (50.0-100.0) ug/mL Ethanol Quant <3 mg/dL Patient TSH is elevated 5.29, T4 will be added Depakote within normal limits.. ECG Data Attestation: I personally reviewed and interpreted this ECG as follows: (EKG interpretation. Normal sinus rhythm at 79 beats a minute. Normal axis deviation. No acute ST elevation, no acute ectopy. QTc of 394.) Discharge Plan Discharge Chief Complaint: Altered Mental Status Clinical Impression: Hallucinations, Altered mental status, Delirium, STEVO (acute kidney injury), Elevated TSH Patient Disposition: Admitted As Inpatient Time of Disposition Decision: 00:45 Condition: Serious
--- OUTSIDE RECORDS SUMMARY | 2024-08-09 23:28 | XMS_ITS | CCD ---
Author Organization [facility] [employer] Care Team Providers Care Newsagent Name Role Phone NAYA IZAGUIRRE Admitting Unavailable JOHN JAE Primary Care Unavailable JOHN JAE Referring Unavailable NAYA IZAGUIRRE Attending Unavailable NC Procedure Practitioner Unavailab NAYA Wolf Surgeon Unavailable JAE LOPEZ Primary Care Unavailable SELF, REFERRED Referring Unavailable WILLAM IZAGUIRREIN Attending Unavailable ZINA JIASULTANAIN Admitting Unavailable NC Procedure Practitioner Unavailab WILLAM WolfIN [...] Unavailable HOY ., DR MILLER Consulting Unavailable Unavailable Primary Care Provider UnavailJae Easton Primary Care Physician MD Danni Graham Attending Provider MD Jae Lopez Primary Care Provider MAITE MORRIS Attending Unavailable JAE LOPEZ M Primary Care Unavailable Danni Graham Admitting Unavailable Danni Graham Attending Unavailable Danni Graham. Referring Unavailable HOY, JAE M Primary Care Unavailable ERWIN PRICE Consulting Unavailable HOY, JAE M Referring Unavailable HOY, JAE M Primary Care Unavailable CHRISTIANOYJAE M Referring Unavailable HOY, JAE M Primary Care Unavailable HOY, JAE M Referring Unavailable HOY, JAE M Primary Care Unavailable HOY, JAE M Referring Unavailable HOY, JAE M Primary Care Unavailable HOY, JAE M Referring Unavailable HOY, JAE M Primary Care Unavailable HOY, JAE M Referring Unavailable HOY, JAE M Primary Care Unavailable Jae Lopez MD Primary Care Provider [phone] Danni Graham. Attending Unavailable Lue, Danni M. Attending Unavailable Hoy, Jae Referring Unavailable Lue, Danni M. Attending Unavailable Lue, Danni M. Admitting Unavailable Lue, Danni M. Referring Unavailable Lue, Danni M. Attending Unavailable ALF, NICHOL M Admitting Unavailable ALF, NICHOL M Attending Unavailable HOY, JAE M Referring Unavailable HOY, JAE M Primary Care Unavailable JESSICA JOHNSON I Consulting Unavailable MILTON CHAMBERS Consulting Unavailable JAYLIN MAY Consulting Unavailable MINA FRANKS Consulting Unavailable SONYA ASTUDILLO Consulting Unavailable KELLEY SOFIA Consulting Unavailable FLIP VILLAR Consulting Unavailable ALSAKKA, MOHAMAD S Referring Unavailable HOY, JAE M Primary Care Unavailable ALSAKKA, MOHAMAD S Referring Unavailable HOY, JAE M Primary Care Unavailable SUDHA, ARNULFO Referring Unavailable HOY, JAE M Primary Care Unavailable SUDHA, ARNULFO Referring Unavailable HOY, JAE M Primary Care Unavailable CECILE HENRY Referring Unavai lable HOY, JAE M Primary Care Unavailable CHANDLER PALMA Attending Unavailable HOY, JAE M Primary Care Unavailable FIDELINA FISHER Attending Unavailable Lue, Danni M Admitting Unavailable Lue, Danni M Attending Unavailable Hoy, Jae M Primary Care Unavailable Rosa, Elliott Admitting Unavailab le Rosa, Elliott Attending Unavailab le Hoy, Jae M Primary Care Unavailable Allergies Allergy Classification Reported Allergen(s) Allergy Type Date of Onset Reaction(s) Facility (1 source) 53874,00 Drug allergy (disorder) 9 [facility] Repository (4 sources) diphenhydrAMINE ; Translations: [DIPHENHYDRAMIN E] Drug Allergy 5 Abnormal Behavior [facility] Repository (1 source) No Known Medication Allergies; Translations: [No Known Medication Allergies] Propensity to adverse reactions (disorder) [facility] Repository Medications Current Medications Medication Drug Class(es) Dates Sig (Normalized) Sig (Original) acetaminophen 325 mg oral tablet (5 sources) Start: 07-06-2024 End: 07-20-2024 take 1 tablet by mouth every four hours as needed for headache 650 mg, oral, Every 4 hours PRN, headaches, Temperature greater than 38.3 C, Starting on Tue07/20/24 at 1249, [Warning: Total Acetaminophen not to exceed more than 4 grams (4000 mg) in 24 hours] take 1 tablet by january th every six hours as needed for pain acetaminophen (TYLENOL EXTRA STRENGTH) 5 00 mg tablet Take 1 tablet (500 mg total) by mouth every 6 (six) hours as needed for pain. Active acetaminophen 325 mg / oxyCODONE hydrochloride 5 mg oral tablet (2 sources) Opioid Agonist End: 07-22-2024 oxyCODONE-acetaminophen (PERCOCET) 5-325 mg per tablet oxycodone-acetaminophen 5 mg-325 mg tablet 07/22/2024 Discontinued (Stop Taking at Discharge) aspirin 81 mg delayed release oral tablet (20 sources) Platelet Aggregation Inhibitor, Nonsteroidal Anti-inflammatory Drug Start: 11-26-2019 End: 07-22-2024 take 1 tablet by mouth once daily aspirin 81 mg Take 1 tablet (81 mg total) by mouth daily. 60 tablet 11/26/2019 07/22/2024 Discontinued (Stop Taking at Discharge) Comment on above: once daily. benztropine mesylate 1 mg oral tablet (2 sources) Anticholinergic, Antihistamine End: 07-22-2024 take 1 tablet by mouth in the morning, then take 1 tablet by mouth at bedtime benztropine (COGENTIN) 1 mg tablet Take 1 tablet (1 mg total) by mouth in the morning and 1 tablet (1 mg total) before bedtime. 07/22/2024 Discontinued (Stop Taking at Discharge) brexpiprazole 2 mg oral tablet (2 sources) Atypical Antipsychotic End: 07-22-2024 take 1 tablet by mouth in the morning brexpiprazole (REXULTI) 2 mg tablet Take 1 tablet (2 mg total) by mouth in the morning. 07/22/2024 Discontinued (Stop Taking at Discharge) CPAP/BIPAP/OTHER (20 sources) Start: 12-02-2022 End: 04-18-2050 CPAP/BIPAP/OTHER Type .CPAPSettings into a note to see current settings/supplies/DME information. 1 Each 12/02/2022 04/18/2050 Active Start: [...] a note to see current settings/supplies/DME information. docusate sodium 50 mg / sennosides, prison 8.6 mg oral tablet (1 source) Start: 2024 take 1 tablet by mouth every twelve hours as needed for constipation donepezil hydrochloride 5 mg oral tablet (20 sources) Start: 2024 take 5 mg by mouth once daily 5 mg, oral, Nightly, First dose on Tue07/06/24 at 2200, Look-alike/soun d-alike medication - verify indication for use. Start: 08-11-2022 End: 03-09-2024 take 1 tablet by mouth once daily donepezil (ARICEPT) 5 mg tablet Indications: Alzheimer's disease (HCC) take 1 tablet by mouth every day 30 tablet 03/09/2024 Active Comment on above: Take 1 tablet by january th once daily. TAKE 1 TABLET BY JANUARY TH EVERY DAY DULoxetine 20 mg delayed release oral capsule (3 sources) Serotonin and Norepinephrine Reuptake Inhibitor Start: End: take 1 capsule by mouth in the morning DULoxetine (CYMBALTA) 20 mg capsule Take 1 capsule (20 mg total) by mouth in the morning for 30 days. 30 capsule 07/21/2024 08/20/2024 Active 0.4 ml enoxaparin sodium 100 mg/ml prefilled syringe (1 source) Low Molecular Weight Heparin Start: inject 40 mg by subcutaneous injection once daily 40 mg, subcutaneous, Daily, First dose on Tue07/17/24 at 1630, Look-alike/sound-al ksenia medication - verify indication for use. FLUoxetine 20 mg oral capsule (2 sources) Serotonin Reuptake Inhibitor End: take 1 capsule by mouth in the morning FLUoxetine (PROzac) 20 mg capsule Take 1 capsule (20 mg total) by mouth in the morning. 07/22/2024 Discontinued (Stop Taking at Discharge) FREESTYLE LITE METER kit (3 sources) Start: FREESTYLE LITE METER kit 09/08/2018 Active Start: 09-08-2018 FREESTYLE LITE METER kit 09/08/2018 Start: 09-08-2018 FREESTYLE LITE METER kit 09/08/2018 Suspended glucagon (rdna) 1 mg injecti on (1 source) Antihypoglycemic Agent Start: 07-06-2024 50 ml glucose 500 mg/ml pref illed syringe (2 sources) Start: 07-06-2024 Start: 07-06-2024 haloperidol 5 mg oral tablet (2 sources) Typical Antipsychotic End: 07-22-2024 haloperidoL (HALDOL) 5 mg tablet Take 1 tablet (5 mg total) by mouth in the morning and 1 tablet (5 mg total) at noon and 1 tablet (5 mg total) in the evening and 1 tablet (5 mg total) before bedtime. 07/22/2024 Discontinued (Stop Taking at Discharge) hydrocortisone 10 mg/ml / neomycin 3.5 mg/ml / polymyxin b 83524 unt/ml otic suspension (3 sources) Aminoglycoside Antibacterial, Polymyxin-class Antibacterial, Corticosteroid Start: 04-22-2022 End: 04-27-2022 neomycin-polymyxi n-hydrocortisone (CORTISPORIN) 3.5-10,000-1 mg/mL-unit/mL-% otic suspension Indications: Acute otitis externa of left ear, unspecified type Use 4 Drops in the left ear three times daily for 5 days. 10 mL 0 04/22/2022 04/27/2022 Active Comment on above: Use 4 Drops in the l eft ear three times daily for 5 days. loperamide hydrochloride 2 mg oral tablet (2 sources) Opioid Agonist End: 07-22-2024 take 1 tablet by mouth four times daily as needed for diarrhea loperamide (IMODIUM A-D) 2 mg tablet Take 1 tablet (2 mg total) by mouth 4 (four) times a day as needed for diarrhea. 07/22/2024 Discontinued (Stop Taking at Discharge) LORazepam 1 mg oral tablet (2 sources) Benzodiazepine End: 07-22-2024 take 1 tablet by mouth every six hours as needed for anxiety LORazepam (ATIVAN) 1 mg tablet Take 1 tablet (1 mg total) by mouth every 6 (six) hours as needed for anxiety. 07/22/2024 Discontinued (Stop Taking at Discharge) melatonin 5 mg oral tablet (2 sources) Start: 07-20-2024 take 10 mg by mouth once daily 10 mg, oral, Nightly, First dose (after last modification) on 07/20/24 at 2200 Start: 07-08-2024 End: 07-20-2024 take 5 mg by mouth once daily 5 mg, oral, Nightly, Fir st dose on Tue07/08/24 at 2200 memantine hydrochloride 5 mg oral tablet (17 sources) J-chrxoj-E-aspartate Receptor Antagonist Start: 11-17-2022 take 1 tablet by mouth twice daily memantine (NAMENDA) 5 mg tablet Indications: Alzheimer's disease (HCC) Take 1 tablet by mouth twice daily. 180 tablet 1 11/18/2022 Active Comment on above: Take 1 tablet by january twice daily. 24 hr nicotine 0.875 mg/hr transdermal system (1 source) Cholinergic Nicotinic Agonist Start: 07-06-2024 omeprazole 20 mg delayed release oral capsule (20 sources) Proton Pump Inhibitor End: 07-22-2024 take 1 capsule by mouth once daily omeprazole (PriLOSEC) 20 mg capsule Take 20 mg by mouth daily. 07/22/2024 Discontinued (Stop Taking at Discharge) End: 02-02-2025 take 1 capsule by mouth in the morning omeprazole (PriLOSEC) 40 mg capsule Take 1 capsule (40 mg total) by mouth in the morning. 07/22/2024 Discontinued (Stop Taking at Discharge) omeprazole (PRIL OSEC) 20 mg capsule 40 mg once daily. Active Comment on above: 40 mg once daily. ondansetron 4 mg disintegrating oral tablet (1 source) Serotonin-3 Receptor Antagonist Start : 07-06 take 1 tablet by mouth (buccal) every eight hours as needed for nausea and vomiting oxaprozin 600 mg oral tablet (20 sources) Nonsteroidal Anti-inflammatory Drug Start : 04-14 oxaprozin (DAYPRO) 600 mg tablet as needed. 04/14/2022 Active Comment on above: as needed. pantoprazole 40 mg delayed release oral tablet (1 source) Proton Pump Inhibitor Start : 07-06 40 mg, oral, Every morning before breakfast, First dose on Tue07/06/24 at 0900, Look-alike/sound-alex e medication - verify indication for use. If patient is receiving enteral feeding, consider alternative PPI or continue IV pantoprazole until the delayed-release tablet can be taken orally, Indication: GERD prochlorperazine (COMPAZINE) injection 5 mg (1 source) Start : 07-20 take 5 mg intravenously every six hours as needed prochlorperazine (COMPAZINE) injection 5 mg QUEtiapine 50 mg oral tablet (4 sources) Atypical Antipsychotic Start : 07-20 take 3 tablets by mouth once daily, then take 1 tablet by mouth once daily QUEtiapine (SEROquel) 50 mg tablet Take 3 tablets (150 mg total) by mouth nightly AND 1 tablet (50 mg total) daily. 90 tablet 07/20/2024 Active Start: 07-12-2024 QUEtiapine (SE ROquel) tablet 150 mg Start: 07-06-2024 End: 07-12-2024 take 75 mg by mouth once daily 75 mg, oral, Nightly, F irst dose on Tue07/06/24 at 2200, Look-alike/sound-alike medication - verify indication for use. simvastatin 20 mg oral tablet (20 sources) HMG-CoA Reductase Inhibitor Start: 02-25-2022 simvastatin (ZOCOR) 20 mg tablet daily at bedtime. 02/25/2022 Active End: 07-22-2024 take 1 tablet by mouth once daily simvastatin (ZOCOR) 10 mg tablet Take 10 mg by mouth nightly. 07/22/2024 Discontinued (Stop Taking at Discharge) Comment on above: daily at bedtime. divalproex sodium 125 mg delayed release oral capsule (3 sources) Mood Stabilizer, Anti-epileptic Agent Start: 07-20-2024 End: 08-19-2024 divalproex sprinkle (DEPAKOTE SPRINKLE) 125 mg capsule Take 4 capsules (500 mg total) by mouth every 12 (twelve) hours for 30 days. 240 capsule 07/20/2024 08/19/2024 Active Start: 07-11-2024 take 500 mg by mouth every twelve hours 500 mg, oral, Every 12 hours scheduled, First dose on Tue07/11/24 at 1500, HAZARDOUS - Handle with care. Look-alike/sound-alike medication - verify indication for use. Swallow whole or sprinkle on small amount of food. Completed/Discontinued Medications Medication Drug Class(es) Dates Sig (Normalized) Sig (Original) doxycycline hyclate 100 mg oral capsule (2 sources) Tetracycline-clas s Drug Start: 07-20-2024 End: 07-21-2024 take 1 capsule by mouth in the morning, then take 1 capsule by mouth at bedtime doxycycline (VIBRAMYCIN) 100 mg capsule Take 1 capsule (100 mg total) by mouth in the morning and 1 capsule (100 mg total) before bedtime. Do all this for 1 day. 2 capsule 07/20/2024 07/21/2024 Start: 07-17-2024 End: 07-21-2024 100 mg, oral, 2 times daily, First dose on Tue07/17/24 at 0945, For 5 days, May give with meals to decrease GI upset. Administer with at least 8 ounces of water and have patient sit up for at least 30 minutes after taking to reduce the risk of esophageal irritation and ulceration., Indication: Skin and soft tissue infection gadoteridoL (PROHANCE) injection 8.39 mmol 16.78 mL (1 source) Start: 07-10-2024 End: 07-10-2024 8.39 mmol (0.1 mmol/kg 83.9 kg), intravenous, Once in imaging, contrast, MRI, Starting on Tue07/10/24 at 0824, For 1 dose, VESICANT (RED), Indications: magnetic resonance imaging 1 ml heparin sodium, porcine 5000 unt/ml injection (1 source) Unfractionated Heparin, Anti-coagulant Start: 07-07-2024 End: 07-17-2024 5,000 Units, subcutaneous, Every 8 hours scheduled, First dose on Tue07/07/24 at 0600, Notify prescriber if INR greater than 1.9, hemoglobin less than 10 mg/dL, aPTT greater than 40 seconds, and/or platelet count less than 100,000/mm Look-alike/sound-alex e medication - verify indication for use. Observe for bleeding. 125 ml sodium chloride 9 mg/ml prefilled syringe (4 sources) Start: 07-10-2024 End: 07-10-2024 10 mL, intravenous, Once in imaging, line care, MRI, Starting on Tue07/10/24 at 0824, For 1 dose Start: 07-06-2024 3 mL, intraven ous, Every 12 hours scheduled, First dose on Tue07/06/24 at 0900 Start: 07-06-2024 Start: 07-06-2024 ziprasidone 20 mg injection (4 sources) Atypical Antipsychotic Start: 07-09-2024 End: 07-09-2024 10 mg, intramuscular, Once, On Tue07/09/24 at 1445, For 1 dose, Dilute with 1.2mL of sterile water for injection. 20mg dose = 1mL Maximum dose is 40 mg in 24 hours. Start: 07-09-2024 inject 10 mg by intr amuscular injection every six hours as needed 10 mg, intramuscular, Every 6 hours PRN, agitation, Starting on Tue07/09/24 at 1442, Dilute with 1.2mL of sterile water for injection. 20mg dose = 1mL Maximum dose is 40 mg in 24 hours. Start: 07-09-2024 End: 07-09-2024 20 mg, intramuscular, Once, On Tue07/09/24 at 0245, For 1 dose, Dilute with 1.2mL of sterile water for injection. 20mg dose = 1mL Maximum dose is 40 mg in 24 hours. Start: 07-06-2024 End: 07-09-2024 inject 20 mg by intramuscular injection every twelve hours as needed 20 mg, intramuscular, Every 12 hours PRN, agitation, Starting on Tue07/06/24 at 0903, Dilute with 1.2mL of sterile water for injection. 20mg dose = 1mL Maximum dose is 40 mg in 24 hours. Problems Active Problems Problem Classification Problem Date Documented Da te Episodic/Chronic Acute bronchitis (4 sources) Acute bronchitis 01-04-2024 Episodic Asthma (4 sources) Asthma 01-04-2024 Chronic Delirium, dementia, and amnestic and other cognitive disorders (15 sources) Alzheimer's disease; Translations: [Alzheimer's disease, unspecified] Onset: 5 Chronic Diabetes mellitus without complication (5 sources) [...] OSTEOARTHRITIS UNS SITE] Onset: 3 Chronic Other aftercare (1 source) Encounter for follow-up examination after completed treatment for conditions other than malignant neoplasm; Translations: [Encounter for follow-up examination after completed treatment for conditions other than malignant neoplasm] Onset: 5 Episodic Other circulatory disease (1 source) Elevated blood-pressure [...] sources) Tinnitus 01-04-2024 Episodic Other gastrointestinal disorders (1 source) Colostomy status; Translations: [Colostomy status] Onset: Chronic Other gastrointestinal disorders (4 sources) Perforation of [...] central sleep apnea] Chronic Residual codes; unclassified (3 sources) Amnesia; Translations: [Other amnesia] Episodic Residual codes; unclassified (4 sources) Poor short-term memory 01-04-2024 Episodic Residual codes; unclassified (1 source) Hallucinations, unspecified; Translations: [Hallucinations, unspecified] Onset: 5 Episodic Residual codes; unclassified (1 source) Pain, unspecified; Translations: [Pain, unspecified] Onset: 5 Episodic Residual codes; unclassified (4 sources) Altered mental status; Translations: [Altered mental status, unspecified] Onset: 5 07-06-2024 Episodic Residual codes; unclassified (1 source) Other specified personal risk factors, not elsewhere classified; Translations: [Other specified personal risk factors, not elsewhere classified] Onset: 5 Episodic Residual codes; unclassified (1 source) Altered mental status, unspecified; Translations: [Altered mental status, unspecified] Onset: 5 Episodic Unclassified (1 source) Medical Screening Onset: 5 Unclassified (1 source) ILL Onset: 5 Unclassified (1 source) tele-neuro consult Brock Onset: 5 Unclassified (1 source) Unspecified dementia, unspecified severity, with other behavioral disturbance; Translations: [Unspecified dementia, unspecified severity, with other behavioral disturbance] Onset: 5 Past or Other Problems Problem Classification Problem Date Documented Da te Episodic/Chronic Crushing injury or internal injury (2 sources) Laceration of ulnar artery; Translations: [Laceration of ulnar artery at forearm level, left arm, initial encounter] Onset: 11-24-2019 11-24-2019 Episodic Deficiency and other anemia (1 source) Anemia, unspecified; Translations: [ANEMIA UNSPECIFIED] Onset: 01-16-2022 Episodic Other ear and sense organ disorders (20 sources) Bilateral tinnitus; Translations: [Tinnitus, bilateral] Onset: 04-27-2022 04-27-2022 Episodic Other screening for suspected conditions (not mental disorders or infectious disease) (3 sources) Raised prostate specific antigen; Translations: [Elevated prostate specific antigen [PSA]] Onset: 01-11-2024 Episodic Residual codes; unclassified (4 sources) Other amnesia; Translations: [OTHER AMNESIA] Onset: 01-21-2022 Episodic Results Test Name Value Interpretation Reference Range Facility [facility] 07-20-2024 [facility] Telephone (YOSELYN) NOÉ JEFFERY ([id number]) 1965 M Date Time Provider Department 07/20/24 BRIANA MCDERMOTT During your visit today, we recorded the following information about you: Briana Mcdermott MD 07/20/2024 8:56 AM Signed Received transfer center request to discuss with referring physician. Briefly, this patient with baseline cognitive impairment (? Early AD) had a fall with closed head injury and behavioral changes post-fall. He is medically stable and behavior has improved. Referrals were made to multiple TBI rehab facilities and all declined. The family requests transfer to F inpatient service for further cognitive evaluation and management. It sounds like the patient is appropriately managed thus far and has no ongoing inpatient care needs. Thus, hospital to hospital transfer is not likely to be beneficial. We discussed the 3 neurorehab centers in our network. Referring MD will confirm with bilingual patient support caseworker that referrals were sent to all 3. If the patient is discharged home or to SNF, we can potentially expedite an appointment with our PMR colleagues/TBI multidisciplinary clinic. I will alert Drs. Aguilar and Earl to the referral. Briana Mcdermott MD Allergies As of Date: 07/20/2024 (No Known Allergies) Date Reviewed: 10/12/2022 Reviewed by: Miguelito Chicas APRN.CCIE - Fully Assessed Prescriptions as of 07/20/2024 - donepezil (ARICEPT) 5 mg tablet take 1 tablet by mouth every day - CPAP/BIPAP/OTHER Type .CPAPSettings into a note [...] at bedtime. Problem List As Of Date 07/20/2024 Noted Resolved Bilateral high frequency sensorineural hearing *04/27/2022 Tinnitus, bilateral [H93.13] 04/27/2022 HLD (hyperlipidemia) [E78.5] Encounter Status:Closed by BRIANA MCDERMOTT on 07/20/24 [facility] Patient Letter FTon 2024 Patient Letter [facility] Patient Letter [facility] July 20, 2024DecNOÉ JEFFERY [address] [place] [id number] : 1965 Dear Mr. Jeffery, I am corresponding with you by certified mail because you have a medical condition known as Elevated PSA. My office has tried contacting you to get the surgery (MRI Fusion Transperineal Prostate Biopsy) rescheduled with no response back from you at this time. Please contact my office at your earliest convenience and we will reschedule your surgery so I can closely monitor your condition. I cannot be responsible for your urologic care if you do not follow up as recommended. Non compliance may result in dismissal from the practice. Office Sincerely, Dr. Danni Graham [facility] [address] [place] [id number] [facility] TNANER Virus Antibody Reflex to Inhibition Assayon 07-19-2024 Interpretation and review of laboratory results Abnormal [employer] [facility] TANNER virus Ab IA Ql Positive [facility] Comment on above: NOTE Index interpretive criteria: <0.20 negative 0.20-0.40 indeterminate >0.40 positive INTERPRETATION Negative: Antibodies to JCV not detected. Indeterminate: Low level reactivity detected, see Inhibition Assay result below for the final antibody result. 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 The STRATIFY JCV(R) DxSelect(TM) Antibody Test is an enzyme-linked immunosorbent assay (CARLITO) designed to detect JCV antibodies to help identify individuals who have been exposed to the virus. Samples with low level reactivity in the detection assay are retested in a confirmation (inhibition) assay to confirm presence or absence of JCV-specific antibodies. Retrospective analyses of post marketing data from various sources, including observational studies and spontaneous reports obtained worldwide, suggest that the risk of developing PML may be associated with relative levels of serum anti-JCV antibody as measured by anti-JCV antibody index.(1) (1) TYSABRI(natalizumab)US Prescribing Information Performed by: [id number] [place] [address] Jessenia Bagley MD, PhD, TANNER Virus Index 2.94 [facility] Comment on above: NOTE Performed by: [employer] [facility] [address] [place] [address] Jessenia Bagley MD, PhD, [facility] Marjorie 07-18-2024 CNPN Telephone (NEIND4) NOÉ JEFFERY ([id number]) 1965 M Date Time Provider Department 07/18/24 NARCISO GUERRA NEIND4 During your visit today, we recorded the following information about you: Benoit Gaby 07/18/2024 9:22 AM Signed Patient returned your call and can be reached at: Call patient at: on cell [phone] (home) [phone] (cell) Abbey Amato MA 07/18/2024 11:23 AM Signed Patient mailbox is full unable to leave message Nica Holland RN 07/19/2024 12:[address] PM [address] Spoke with Dr Harmon (sp?) from [facility] regarding patient. Family is requesting transfer to a [facility] TBI center, inpatient. I advised that Dr Guerra cannot assist in this matter. Marichuy Roca, MARCI 07/20/2024 3:19 PM Addendum Spoke to , Kari. Pt is currently at [facility]. Pt is being denied an admit to rehab facility. I am unable to view notes from that hospital. Suggestion given to try [facility] as [facility] does not have a TBI clinic. Family will have to work with staff at [facility]. Verbalized understanding. Allergies As of Date: 07/18/2024 (No Known Allergies) Date Reviewed: 10/12/2022 Reviewed by: Miguelito Chicas, SYD.CCIE - Fully Assessed Reason for Visit: Patient Question [4127] Prescriptions as of 07/20/2024 - donepezil (ARICEPT) 5 mg tablet take 1 tablet by mouth every day - CPAP/BIPAP/OTHER Type .CPAPSettings into a note [...] at bedtime. Problem List As Of Date 07/18/2024 Noted Resolved Bilateral high frequency sensorineural hearing *04/27/2022 Tinnitus, bilateral [H93.13] 04/27/2022 HLD (hyperlipidemia) [E78.5] Encounter Status:Closed by MARICHUY ROCA on 07/20/24 Normal [facility] BASIC METABOLIC PANLon 07-17 Anion gap [Moles/Vol] 4 mmol/L Low 5-15 [facility] Comment on above: Performed By: #### T HYR, CBC, BMP, #### [facility] ([id number]) [address], [address] [place] [address] Calcium [Mass/Vol] 8.8 mg/dL Normal 8.5-10.5 [facility] Comment on above: Performed By: #### T HYR, CBC, BMP, 2776-06, #### [facility] ([id number]) [address], [address] [place] [address] Chloride [Moles/Vol] 104 mmol/L Normal 98-109 [facility] Comment on above: Performed By: #### T HYR, CBC, BMP, #### [facility] ([id number]) [address], [address] [place] [address] CO2 [Moles/Vol] 33 mmol/L High 22-32 [facility] Comment on above: Performed By: #### T HYR, CBC, BMP, 2776-06, #### [facility] ([id number]) [address], [address] [place] [address] Creatinine [Mass/Vol] 0.95 mg/dL Normal 0.60-1.30 [facility] Comment on above: Result Comment: METH OD TRACEABLE TO IDMS STANDARD Performed By: #### T HYR, CBC, BMP, 2776-06, #### [facility] ([id number]) [address], [address] [place] [address] eGFR (CKD-EPI) NON-RACE DEPENDENT >90 Normal >59 [facility] Comment on above: Result Comment: Reported eGFR is based on the CKD-EPI 2020 equation that does not use a race coefficient. Performed By: #### T HYR, CBC, BMP, 2776-06, #### [facility] ([id number]) [address], [address] [place] [address] Glucose [Mass/Vol] 97 mg/dL Normal 65-99 [facility] Comment on above: Performed By: #### T HYR, CBC, BMP, 2776-06, #### [facility] ([id number]) [address], [address] [place] [address] Potassium [Moles/Vol] 4.3 mmol/L Normal 3.5-5.0 [facility] Comment on above: Performed By: #### T HYR, CBC, BMP, 2776-06, #### [facility] ([id number]) [address], [address] [place] [address] Sodium [Moles/Vol] 141 mmol/L Normal 134-146 [facility] Comment on above: Performed By: #### T HYR, CBC, BMP, 2776-06, #### [facility] ([id number]) [address], [address] [place] [address] Urea nitrogen [Mass/Vol] 20 mg/dL Normal 5-23 [facility] Comment on above: Performed By: #### T HYR, CBC, BMP, 2776-06, #### [facility] ([id number]) [address], [address] [place] [address] Basic Metabolic Panelon - Anion gap [Moles/Vol] 4 mmol/L Low 5 - 15 mmol/L [facility] Calcium [Mass/Vol] 8.8 mg/dL 8.5 - 10. 5 mg/dL [facility] Chloride [Moles/Vol] 104 mmol/L 98 - 10 9 mmol/L [facility] CO2 [Moles/Vol] 33 mmol/L High 22 - 32 mmol/L [facility] Creatinine [Mass/Vol] 0.95 mg/dL 0.60 - 1.30 mg/dL [facility] Comment on above: METHOD TRACEABLE TO IDWA STANDARD eGFR (CKD-EPI)non-race dependent - PINF [facility] Comment on above: Reported eGFR is based on the CKD-EPI 2020 equation that does not use a race coefficient. Glucose [Mass/Vol] 97 mg/dL 65 - 99 mg/dL [facility] Interpretation and review of laboratory results Abnormal [facility] Potassium [Moles/Vol] 4.3 mmol/L 3.5 - 5.0 mmol/L [facility] Sodium [Moles/Vol] 141 mmol/L 134 - 146 mmol/L [facility] Urea nitrogen [Mass/Vol] 20 mg/dL 5 - 23 mg/dL [facility] CBC AND AUTO DIFFon 07-17-19 25 ABSOLUTE BASOPHIL 0.0 X10E9/L Normal 0.0-0.2 [facility] Comment on above: Performed By: #### T HYR, CBC, BMP, 2776-06, 70086-6 #### [facility] ([id number]) [address], [address] [place] [address] ABSOLUTE NEUTROPHIL 2.5 X10E9/L Normal 1.5-6.6 [facility] Comment on above: Performed By: #### T HYR, CBC, BMP, 2776-06, #### [facility] ([id number]) [address], [address] [place] [address] Basophils/100 WBC (Bld) 0.6 % Normal [facility] Comment on above: Performed By: #### T HYR, CBC, BMP, 2776-06, #### [facility] ([id number]) [address], [address] [place] [address] Eosinophils (Bld) [#/Vol] 0.1 10*3/uL Normal 0.0-0.4 [facility] Comment on above: Performed By: #### T HYR, CBC, BMP, 2776-06, #### [facility] ([id number]) [address], [address] [place] [address] Eosinophils/100 WBC (Bld) 1.9 % Normal [facility] Comment on above: Performed By: #### T HYR, CBC, BMP, 2776-06, #### [facility] ([id number]) [address], [address] [place] [address] Erythrocyte distribution width (RBC) [Ratio] 15.8 % High 11.5-15.0 [facility] Comment on above: Performed By: #### T HYR, CBC, BMP, 2776-06, #### [facility] ([id number]) [address], [address] [place] [address] Hematocrit (Bld) [Volume fraction] 41.8 % Normal 39-49 [facility] Comment on above: Performed By: #### T HYR, CBC, BMP, 2776-06, #### [facility] ([id number]) [address], [address] [place] [address] Hemoglobin (Bld) [Mass/Vol] 13.9 g/dL Normal 13.0-17.0 [facility] Comment on above: Performed By: #### T HYR, CBC, BMP, 2776-06, #### [facility] ([id number]) [address], [address] [place] [address] Lymphocytes (Bld) [#/Vol] 1.2 10*3/uL Normal 1.0-3.5 [facility] Comment on above: Performed By: #### T HYR, CBC, BMP, 2776-06, #### [facility] ([id number]) [address], [address] [place] [address] Lymphocytes/100 WBC (Bld) 29.7 % Normal [facility] Comment on above: Performed By: #### T HYR, CBC, BMP, 2776-06, #### [facility] ([id number]) [address], [address] [place] [address] MCH (RBC) [Entitic mass] 25.1 pg Low 27-34 [facility] Comment on above: Performed By: #### T HYR, CBC, BMP, 2776-06, #### [facility] ([id number]) [address], [address] [place] [address] MCHC (RBC) [Mass/Vol] 33.2 g/dL Normal 32-36 [facility] Comment on above: Performed By: #### T HYR, CBC, BMP, 2776-06, #### [facility] ([id number]) [address], [address] [place] [address] MCV (RBC) [Entitic vol] 76 fL Low 80-100 [facility] Comment on above: Performed By: #### T HYR, CBC, BMP, 2776-06, #### [facility] ([id number]) [address], [address] [place] [address] Monocytes (Bld) [#/Vol] 0.3 10*3/uL Normal 0-0.9 [facility] Comment on above: Performed By: #### T HYR, CBC, BMP, 2776-06, #### [facility] ([id number]) [address], [address] [place] [address] Monocytes/100 WBC (Bld) 8.2 % Normal [facility] Comment on above: Performed By: #### T HYR, CBC, BMP, 2776-06, #### [facility] ([id number]) [address], [address] [place] [address] Neutrophils/100 WBC (Bld) 59.6 % Normal [facility] Comment on above: Performed By: #### T HYR, CBC, BMP, 2776-06, #### [facility] ([id number]) [address], [address] [place] [address] Platelet mean volume (Bld) [Entitic vol] 7.7 fL Normal 7-[address] [facility] Comment on above: Performed By: #### T HYR, CBC, BMP, 2776-06, #### [facility] ([id number]) [address], [address] [place] [address] Platelets (Bld) [#/Vol] 180 10*3/uL Normal 150-450 [facility] Comment on above: Performed By: #### T HYR, CBC, BMP, 2776-06, #### [facility] ([id number]) [address], [address] [place] [address] RBC COUNT 5.54 X10E12/L Normal 4.10-5.[address] [facility] Comment on above: Performed By: #### T HYR, CBC, BMP, 7-, #### [facility] ([id number]) [address], [address] [place] [address] WBC (Bld) [#/Vol] 4.1 10*3/uL Normal 4.0-11.0 [facility] Comment on above: Performed By: #### T HYR, CBC, BMP, 7-, #### [facility] ([id number]) [address], [address] [place] [address] CBC auto differentialon 06-21 Basophils (Bld) [#/Vol] 0 10*3/uL [facility] Basophils/100 WBC (Bld) 0.6 % [facility] Eosinophils (Bld) [#/Vol] 0.1 10*3/uL [facility] Eosinophils/100 WBC (Bld) 1.9 % [facility] Erythrocyte distribution width (RBC) [Ratio] 15.8 % High 11.5 - 15.0 % [facility] Hematocrit (Bld) [Volume fraction] 41.8 % 39 - 49 % [facility] Hemoglobin (Bld) [Mass/Vol] 13.9 g/dL 13.0 - 17.0 g/dL [facility] Interpretation and review of laboratory results Abnormal [facility] Lymphocytes (Bld) [#/Vol] 1.2 10*3/uL [facility] Lymphocytes/100 WBC (Bld) 29.7 % [facility] MCH (RBC) [Entitic mass] 25.1 pg Low 27 - 34 pg [facility] MCHC (RBC) [Mass/Vol] 33.2 g/dL 32 - 3 6 g/dL [facility] MCV (RBC) [Entitic vol] 76 fL Low 80 - 100 fL [facility] Monocytes (Bld) [#/Vol] 0.3 10*3/uL [facility] Monocytes/100 WBC (Bld) 8.2 % [facility] Neutrophils (Bld) [#/Vol] 2.5 10*3/uL [facility] Neutrophils/100 WBC (Bld) 59.6 % [facility] Platelet mean volume (Bld) [Entitic vol] 7.7 fL 7 - 12 fL [facility] Platelets (Bld) [#/Vol] 180 10*3/uL [facility] RBC (Bld) [#/Vol] 5.54 10*6/uL [facility] WBC corrected for nucl RBC Auto (Bld) [#/Vol] 4.1 [facility] CNPNon 07-17-2024 CNPN Telephone (NEIND4) NOÉ JEFFERY ([id number]) 1965 M Date Time Provider Department 07/17/24 NARCISO GUERRA During your visit today, we recorded the following information about you: Laboy Gaby 07/17/2024 2:37 PM Signed Pt keila and is in [facility] and is requesting help with getting pt transferred to a [facility] Please call pts [phone] Nica Holland, MARCI 07/18/2024 8:58 AM Signed -LVMTCB We are unable to assist in this matter. Pt last seen 04/2022 Allergies As of Date: 07/17/2024 (No Known Allergies) Date Reviewed: 10/12/2022 Reviewed by: Miguelito Chicas APRN.CCIE - Fully Assessed Reason for Visit: Patient Question [7963] Prescriptions as of 07/18/2024 - donepezil (ARICEPT) 5 mg tablet take 1 tablet by mouth every day - CPAP/BIPAP/OTHER Type .CPAPSettings into a note [...] at bedtime. Problem List As Of Date 07/17/2024 Noted Resolved Bilateral high frequency sensorineural hearing *04/27/2022 Tinnitus, bilateral [H93.13] 04/27/2022 HLD (hyperlipidemia) [E78.5] Encounter Status:Closed by NICA HOLLAND on 07/18/24 Normal [facility] Encephalopathy - Autoimmune Eval, RUSSELLon 07-17-2024 Encephalopathy autoimmune Ab panel (CSF) SEE COMMENTS 07/17/2024 05:00 PM [facility] Comment on above: NOTE Test Result Flag Unit RefValue -- Enceph, Autoimm/Paraneo, CSF Encephalopathy, Interpretation, See Note CSF No informative autoantibodies were detected in this evaluation. However, a negative result does not exclude autoimmune encephalopathy, idiopathic or paraneoplastic. Sensitivity and specificity of antibody testing are enhanced by testing both serum and CSF. IFA Notes None. AMPA-R Ab CBA, CSF Negative Negative ADDITIONAL INFORMATION This test was developed and its performance characteristics determined by [facility] in a manner consistent with CLIA requirements. This test has not been cleared or approved by the U.S. Food and Drug Administration. Amphiphysin Ab, CSF Negative Negative ADDITIONAL INFORMATION This test was developed and its performance characteristics determined by [facility] in a manner consistent with CLIA requirements. This test has not been cleared or approved by the U.S. Food and Drug Administration. LETYA-1, CSF Negative Negative ADDITIONAL INFORMATION This test was developed and its performance characteristics determined by [facility] in a manner consistent with CLIA requirements. This test has not been cleared or approved by the U.S. Food and Drug Administration. MARKEL-1, CSF Negative Negative ADDITIONAL INFORMATION This test was developed and its performance characteristics determined by [facility] in a manner consistent with CLIA requirements. This test has not been cleared or approved by the U.S. Food and Drug Administration. MARKEL-2, CSF Negative Negative ADDITIONAL INFORMATION This test was developed and its performance characteristics determined by [facility] in a manner consistent with CLIA requirements. This test has not been cleared or approved by the U.S. Food and Drug Administration. MARKEL-3, CSF Negative Negative ADDITIONAL INFORMATION This test was developed and its performance characteristics determined by [facility] in a manner consistent with CLIA requirements. This test has not been cleared or approved by the U.S. Food and Drug Administration. CASPR2-IgG CBA, CSF Negative Negative ADDITIONAL INFORMATION This test was developed and its performance characteristics determined by [facility] in a manner consistent with CLIA requirements. This test has not been cleared or approved by the U.S. Food and Drug Administration. CRMP-5-IgG, CSF Negative Negative ADDITIONAL INFORMATION This test was developed and its performance characteristics determined by [facility] in a manner consistent with CLIA requirements. This test has not been cleared or approved by the U.S. Food and Drug Administration. DPPX Ab CBA, CSF Negative Negative ADDITIONAL INFORMATION This test was developed and its performance characteristics determined by [facility] in a manner consistent with CLIA requirements. This test has not been cleared or approved by the U.S. Food and Drug Administration. NICOLE-B-R Ab CBA, CSF Negative Negative ADDITIONAL INFORMATION This test was developed and its performance characteristics determined by [facility] in a manner consistent with CLIA requirements. This test has not been cleared or approved by the U.S. Food and Drug Administration. GAD65 Ab Assay, CSF 0.00 nmol/L <= 0.02 ADDITIONAL INFORMATION This test was developed and its performance characteristics determined by [facility] in a manner consistent with CLIA requirements. This test has not been cleared or approved by the U.S. Food and Drug Administration. GFAP IFA, CSF Negative Negative ADDITIONAL INFORMATION This test was developed and its performance characteristics determined by [facility] in a manner consistent with CLIA requirements. This test has not been cleared or approved by the U.S. Food and Drug Administration. mGluR1 Ab IFA, CSF (more content not included)... Encephalopathy autoimmune Ab panel (CSF)on 07-17-2024 [facility] MAGNESIUMon 07-17-2024 Magnesium [Mass/Vol] 2.2 mg/dL Normal 1.8-2.6 [facility] Comment on above: Performed By: #### T HYR, CBC, BMP, 2777-1, 24468-6 #### [facility] ([id number]) [address], [address] [place] [address] Magnesiumon 07-17-2024 Magnesium [Mass/Vol] 2.2 mg/dL 1.8 - 2 .6 mg/dL [facility] No Panel Informationon 07-17 [facility] Bacteria identified Cx Nom ( CSF)on 07-15-2024 Microscopic observation Gram stain Nom (Unsp spec) WHITE BLOOD CELLS PRESENT [facility] Microscopic observation Gram stain Nom (Unsp spec) NO ORGANISMS SEEN [facility] Microscopic observation Gram stain Nom (Unsp spec) ON CONCENTRATED SMEAR [facility] Service comment (Unsp spec) [Interp] NO GROWTH 5 DAYS [facility] Flow Cytometry CSFon 025 Flow cytometry specialist review Ramone (Unsp spec) [Interp] SEE SEPARATE REPORT, REVIEWED BY PATHOLOGIST [facility] Flow cytometry specialist re view Ramone (Unsp spec) [Interp]on 2024 [facility] Lyme EARLY MORNING Infection IgG w/ An tibody Index Reflex, CSF and Serumon 07-13-2024 Pathologist interpretation (Bld) [Interp] See Note [facility] Comment on above: NOTE No antibodies to Lyme Borrelia species detected in cerebrospinal fluid. A negative result in a patient with appropriate exposure history and symptoms consistent with neuroinvasive Lyme disease should not be used to exclude infection. If not already performed, testing for antibodies to Lyme Borrelia species in serum should be performed. ADDITIONAL INFORMATION This test was developed and its performance characteristics determined by [facility] in a manner consistent with CLIA requirements. This test has not been cleared or approved by the U.S. Food and Drug Administration. Reference Lab Test ID Negative Negative [facility] Reference Lab Test ID See Note [facility] Comment on above: NOTE CSF screen was negative for IgG-class antibodies to Lyme Borrelia species. Testing for IgG-class antibodies to Borrelia in serum is not indicated and was not performed. Test Performed by: [facility] [address] [place] [address] Playground Official: Eduardo Clark Ph.D.; CLIA# [id number] [facility] Cytologyon 07-11-2024 [facility] [address] [place] [address] Cytology Consultation Patient Name:NOÉ JEFFERY:1965 (Age: 58)Gender:MTaken:06/21Reported:2024 16:49Physician(s):Shun Haley M.D. ([phone])Copy To:Quinton Harrell M.D. Rec. #:[id number]: #[id number] Final Cytologic Diagnosis Cerebrospinal fluid: No malignant cells identified. 07/11/2024 Interpretation [place] [address], License number: [id number].Electro nically Signed Out By Derick Lorenz MD Additional Report(s): Flow Cytometry-Surg/BM/NG Date Reported: 07/13/2024 No flow cytometric abnormalities. The specimen is hypocellular with a sparse lymphoid component. Immunophenotypic analysis of the lymphoid cells demonstrates a mixed population of few phenotypically unremarkable T-cells and polyclonal B-cells. No monoclonal lymphoid population is detected. Immunophenotyping antibodies tested: CD3, CD4, CD5, CD7, CD8, CD19, CD20, CD45, Sterling, and Lambda. Immunophenotyping Comment: Immunophenotyping has been used in this diagnostic evaluation. This test was developed and its performance characteristics determined by the [facility] Department. It has not been cleared or approved by the U.S. Food and Drug Administration. The FDA has determined that such clearance or approval is not necessary. This test is used for clinical purposes. It should not be regarded as investigational or for research. This laboratory is certified under the Clinical Laboratory Improvement Amendments of 1988 ( CLIA ) as qualified to perform high-complexity clinical testing. Interpretation performed at [facility], [address] [place] [address], License number: [id number]. 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 Also received is one cytospin slide from Hematology. Source of Specimen Cerebrospinal fluid Non PET [facility]B[employer]OR ThinPrep, Cytospin Slide Fee Code(s): 1; 15241, [address] [facility] [email or web address] IgG synthesis rate Calc (S+C SF) [Mass/Time]on 07-11-2024 CSF IgG Index Profile SEE COMMENTS 07/11/2024 12:55 PM [facility] Comment on above: NOTE Test Result Flag Unit RefValue -- CSF IgG Index Profile IgG Index, CSF 0.44 <=0.70 IgG, CSF 3.4 mg/dL <=8.1 Albumin, CSF 24.8 mg/dL <=27.0 IgG/Albumin, CSF 0.14 <=0.21 Synthesis Rate, CSF 0.00 mg/24 h <=12 IgG, S 1230 mg/dL 767 - 1590 IgG/Albumin, S 0.32 <=0.40 Albumin Quotient, CSF/Serum 6.36 <=14 Albumin, S 3900 mg/dL 3500 - 5000 Test Performed by: [address] [address] [employer]ground Official: Eduardo Clark Ph.D.; CLIA# [id number] Test Performed by: [address] [address] [employer] Official: Eduardo Clark Ph.D.; CLIA# [id number] [facility] Reagin Ab VDRL Ql (CSF)on [facility] VDRL, Spinal Fluidon 025 Reagin Ab VDRL Ql (CSF) Negative Negative [facility] Comment on above: NOTE Test Performed by: [facility] [address] [address] Playground Official: Eduardo Clark Ph.D.; CLIA# [id number] 14-3-3 Protein Tau, Total, C SFon 07-10-2024 Creutzfeldt-Osei Disease SEE NOTE Normal [facility] Comment on above: Result Comment: NOTE CSF PANEL TEST RESULT REF RANGE UNITS Specimen Condition Clear RT-QuIC (CSF) Negative Negative RT-QuIC identifies the disease-causing agent T-tau protein (CSF) 1132 0-1149 pg/mL 14-3-3 GAMMA (CSF) H 9282 173-1999 AU/mL T-tau protein and 14-3-3 GAMMA are indirect markers of neurodegenerative disease Likelihood of prion disease: <1.0 % Comment: These tests, together or alone, must not be used to exclude prion disease. A definitive diagnosis of prion disease can only be given after thorough examination of autopsy brain tissue. The [facility] is able to offer a no-cost autopsy for this patient. Autopsy can help to delineate whether prion disease is sporadic, acquired or genetic in etiology. [facility] staff ([phone]) are available to work with healthcare providers and the patient's family to plan an autopsy, if desired. Reviewed and Approved By: Tia Weinberg, PhD Performed By: [facility] [address] [facility] [address] [id number] Performed By: #### T HYR, CBC, BMP, 2777-1, 96967-9 #### [facility] ([id number]) [address], [address] [place] [address] CSF CULTUREon 07-10-2024 Bacteria identified Cx Nom (CSF) GRAM STAIN WHITE BLOOD CELLS PRESENT NO ORGANISMS SEEN ON CONCENTRATED SMEAR CULTURE RESULTS NO GROWTH 5 DAYS Normal [facility] Comment on above: Performed By: #### T HYR, CBC, BMP, 2777-, 85485-9 #### [facility] ([id number]) [address] [place] [address], [address] [place] [address] CSF spinal fluid cell counto n 07-10-2024 Clarity (CSF) CLEAR [facility] Color (CSF) COLORLESS [facility] Color (Spun CSF) COLORLESS [facility] Differential panel (Dial fld) NUCLEATED CELLS <5/uL; DIFF NOT TESTED [facility] Interpretation and review of laboratory results Abnormal [facility] Laboratory comment Ramone (Report) TUBE 3 [facility] Nucleated cells Manual cnt (CSF) [#/Vol] 0.001 10*3/uL 0 - 5 /uL [facility] RBC Manual cnt (CSF) [#/Vol] 48 /uL High 0 - 1 /uL [facility] Csf total proteinon 07-10-19 25 Protein (CSF) [Mass/Vol] 45 mg/dL 15 - 45 mg/dL [facility] Cytologyon 07-10-2024 Cytology Normal [facility] Comment on above: Result Comment: [facility] [address] [place] [address] Cytology Consultation Patient Name:NOÉ JEFFERY:1965 (Age: 58)Gender:MTaken:07/10/2024Reported:07/11/2024 16:49Physician(s):Arnulfo Haley M.D. ([phone])Copy To:Lonnie Baker M.D. Nichol Heath M.D. Rec. #:[id number]: #[id number] Final Cytologic Diagnosis Cerebrospinal fluid: No malignant cells identified. gr/07/11/2024 [facility]ation [facility] at [facility], [address] [place] [address], License number: [id number].Electronically Signed Out By Derick Lorenz MD Additional Report(s): Flow Cytometry-Surg/BM/NG Date Reported: 07/13/2024 No flow cytometric abnormalities. The specimen is hypocellular with a sparse lymphoid component. Immunophenotypic analysis of the lymphoid cells demonstrates a mixed population of few phenotypically unremarkable T-cells and polyclonal B-cells. No monoclonal lymphoid population is detected. Immunophenotyping antibodies tested: CD3, CD4, CD5, CD7, CD8, CD19, CD20, CD45, Sterling, and Lambda. Immunophenotyping Comment: Immunophenotyping has been used in this diagnostic evaluation. This test was developed and its performance characteristics determined by the [facility]. It has not been cleared or approved by the U.S. Food and Drug Administration. The FDA has determined that such clearance or approval is not necessary. This test is used for clinical purposes. It should not be regarded as investigational or for research. This laboratory is certified under the Clinical Laboratory Improvement Amendments of 1988 ( CLIA ) as qualified to perform high-complexity clinical testing. Interpretation performed at [facility], [address] [place] [address], License number: [id number]. 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 Also received is one cytospin slide from Hematology. Source of Specimen Cerebrospinal fluid Non PET AMBASSADOR ThinPrep, Cytospin Slide Fee Code(s): 1; 36234, 55789 Encephalopathy autoimmune Ab panel (CSF)on 07-10-2024 ENCEPHALOPATHY-AUTOIM MUNE EVAL - CSF SEE COMMENTS 07/17/2024 05:00 PM Normal [facility] Comment on above: Result Comment: NOTE Test Result Flag Unit RefValue -- Enceph, Autoimm/Paraneo, CSF Encephalopathy, Interpretation, See Note CSF No informative autoantibodies were detected in this evaluation. However, a negative result does not exclude autoimmune encephalopathy, idiopathic or paraneoplastic. Sensitivity and specificity of antibody testing are enhanced by testing both serum and CSF. IFA Notes None. AMPA-R Ab CBA, CSF Negative Negative ADDITIONAL INFORMATION This test was developed and its performance characteristics determined by [facility] in a manner consistent with CLIA requirements. This test has not been cleared or approved by the U.S. Food and Drug Administration. Amphiphysin Ab, CSF Negative Negative ADDITIONAL INFORMATION This test was developed and its performance characteristics determined by [facility] in a manner consistent with CLIA requirements. This test has not been cleared or approved by the U.S. Food and Drug Administration. AGNA-1, CSF Negative Negative ADDITIONAL INFORMATION This test was developed and its performance characteristics determined by [facility] in a manner consistent with CLIA requirements. This test has not been cleared or approved by the U.S. Food and Drug Administration. MARKEL-1, CSF Negative Negative ADDITIONAL INFORMATION This test was developed and its performance characteristics determined by [facility] in a manner consistent with CLIA requirements. This test has not been cleared or approved by the U.S. Food and Drug Administration. MARKEL-2, CSF Negative Negative ADDITIONAL INFORMATION This test was developed and its performance characteristics determined by [facility] in a manner consistent with CLIA requirements. This test has not been cleared or approved by the U.S. Food and Drug Administration. MARKEL-3, CSF Negative Negative ADDITIONAL INFORMATION This test was developed and its performance characteristics determined by [facility] in a manner consistent with CLIA requirements. This test has not been cleared or approved by the U.S. Food and Drug Administration. CASPR2-IgG CBA, CSF Negative Negative ADDITIONAL INFORMATION This test was developed and its performance characteristics determined by [facility] in a manner consistent with CLIA requirements. This test has not been cleared or approved by the U.S. Food and Drug Administration. CRMP-5-IgG, CSF Negative Negative ADDITIONAL INFORMATION This test was developed and its performance characteristics determined by [facility] in a manner consistent with CLIA requirements. This test has not been cleared or approved by the U.S. Food and Drug Administration. DPPX Ab CBA, CSF Negative Negative ADDITIONAL INFORMATION This test was developed and its performance characteristics determined by [facility] in a manner consistent with CLIA requirements. This test has not been cleared or approved by the U.S. Food and Drug Administration. NICOLE-B-R Ab CBA, CSF Negative Negative ADDITIONAL INFORMATION This test was developed and its performance characteristics determined by [facility] in a manner consistent with CLIA requirements. This test has not been cleared or approved by the U.S. Food and Drug Administration. GAD65 Ab Assay, CSF 0.00 nmol/L <= 0.02 ADDITIONAL INFORMATION This test was developed and its performance characteristics determined by [facility] in a manner consistent with CLIA requirements. This test has not been cleared or approved by the U.S. Food and Drug Administration. GFAP IFA, CSF Negative Negative ADDITIONAL INFORMATION This test was developed and its performance characteristics determined by [facility] in a manner consistent with CLIA requirements. This test has not been cleared or approved by the U.S. Food and Drug Administration. mGluR1 Ab IFA, CSF Negative Negative ADDITIONAL INFORMATION This test was developed and its performance characteristics determined by [facility] in a manner consistent with CLIA requirements. This test has not been cleared or approved by the U.S. Food and Drug Administration. IgLON5 CBA, CSF Negative Negative ADDITIONAL INFORMATION This test was developed and its performance characteristics determined by [facility] in a manner consistent with CLIA requirements. This test has not been cleared or approve (more content not included)... Performed By: #### T HYR, CBC, BMP, 803 #### [facility] ([id number]) [address], [address] [place] [address] Flow cytometry specialist re view Ramone (Unsp spec) [Interp]on 07-10-2024 FLOW CYTOMETRY CSF SEE SEPARATE REPORT, REVIEWED BY PATHOLOGIST Normal [facility] Comment on above: Performed By: #### T HYR, CBC, BMP, 2776-06, #### [facility] ([id number]) [address], [address] [place] [address] Glucose (CSF) [Mass/Vol]on 0 07-10-2024 CSF GLUCOSE 66 mg/dL Normal 40-70 [facility] Comment on above: Performed By: #### T HYR, CBC, BMP, 2776-06, #### [facility] ([id number]) [address], [address] [place] [address] Glucose, CSFon 07-10-2024 Glucose (CSF) [Mass/Vol] 66 mg/dL 40 - 70 mg/dL [facility] LYME EARLY MORNING Infection IgG w/ An tibody Index Reflex, CSF and Serumon 07-10-2024 LYME EARLY MORNING IGG INTERP. See Note Normal [facility] Comment on above: Result Comment: NOTE No antibodies to Lyme Borrelia species detected in cerebrospinal fluid. A negative result in a patient with appropriate exposure history and symptoms consistent with neuroinvasive Lyme disease should not be used to exclude infection. If not already performed, testing for antibodies to Lyme Borrelia species in serum should be performed. ADDITIONAL INFORMATION This test was developed and its performance characteristics determined by [facility] in a manner consistent with CLIA requirements. This test has not been cleared or approved by the U.S. Food and Drug Administration. LYME EARLY MORNING IGG, CSF Negative Normal Negative [facility] LYME EARLY MORNING IGG, SERUM See Note Normal [facility] Comment on above: Result Comment: NOTE CSF screen was negative for IgG-class antibodies to Lyme Borrelia species. Testing for IgG-class antibodies to Borrelia in serum is not indicated and was not performed. Test Performed by: [facility] [address] [place] [address] Playground Official: Eduardo Clark Ph.D.; CLIA# [id number] Lumbar Punctureon 07-10-2024 Arnulfo Haley MD 07/10/2024 10:01 AM Lumbar Puncture Date/Time: 07/10/2024 9:58 AM Performed by: Arnulfo Haley MD Authorized by: Arnulfo Haley MD Consent: Verbal consent obtained. Written consent obtained. Risks and benefits: risks, benefits and alternatives were discussed Consent given by: spouse Relevant documents: relevant documents present and verified Test results: test results available and properly labeled Site marked: the operative site was marked Imaging studies: imaging studies available Patient identity confirmed: arm band Time out: Immediately prior to procedure a time out was called to verify the correct patient, procedure, equipment, bilingual patient support caseworker and site/side marked as required. Anesthesia: local infiltration Anesthesia: Local Anesthetic: lidocaine 1% without epinephrine Sedation: Patient sedated: yes Lumbar space: L3-L4 interspace Patient's position: left lateral decubitus Opening pressure: 12 cm H2O Fluid appearance: clear Tubes of fluid: 4 Total volume: 17.5 ml Post-procedure: pressure dressing applied and adhesive bandage applied Procedure was completed Complications: none MANUALLY TRANSCRIBED RESULTS [facility] [employer] [facility] MENINGITIS PANELon 5 Meningitis+Encephalit is pathogens DNA and RNA panel LILLIANA+non-probe (CSF) SPECIMEN SOURCE CEREBROSPINAL FLUID E COLI K1 Not detected (qualifier value) H INFLUENZAE Not detected (qualifier value) L MONOCYTOGENES Not detected (qualifier value) N MENINGITIDIS Not detected (qualifier value) S AGALACTIAE Not detected (qualifier value) S PNEUMONIAE Not detected (qualifier value) CMV Not detected (qualifier value) ENTEROVIRUS Not detected (qualifier value) HERPES SIMPLEX 1 Not detected (qualifier value) HERPES SIMPLEX 2 Not detected (qualifier value) HERPES VIRUS 6 Not detected (qualifier value) PARECHOVIRUS Not detected (qualifier value) VARICELLA ZOSTER Not detected (qualifier value) C NEOFORMANS Not detected (qualifier value) Normal [facility] Comment on above: Performed By: #### T HYR, CBC, BMP, 2777-1, 56660-7 #### [facility] ([id number]) [address], [address] [place] [address] MR BRAIN W WO CONTon 025 MR BRAIN W WO CONT MR BRAIN W WO CONT STUDY: MRI brain with without contrast . CLINICAL HISTORY: Mental status change, unknown cause COMPARISON: July 03, 2024 brain MRI from [facility] Procedure: Multiplanar, multisequence imaging performed through the brain, including pre and post contrast T1 weighted images using IV contrast. Findings: The high attenuation focus shown on brain CT from July 07 at the anterior aspect of the third ventricle 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 It is difficult to localize with certainty on the brain MRI and does not enhance. Specifically, there are no enhancing or aggressive brain lesions. Extensive brain atrophy and ischemic white matter disease similar to the prior study There are no other intracranial masses, mass-effect, extra-axial fluid collection, or hydrocephalus. Sensitivity for acute hemorrhage limited on MRI, but grossly no acute hemorrhage identified. Midline sagittal structures are unremarkable including pituitary fossa, infundibulum, optic chiasm, corpus callosum, brainstem, fourth ventricle, cerebellum, and cranio-cervical junction. Flow voids documented in makah of [place] and dural venous sinuses. No pathologic contrast enhancement. Diffusion weighted images show no evidence for acute infarct. The deep white matter shows no acute changes. IMPRESSION: The high attenuation focus shown on brain CT from July 07 at the anterior aspect of the third ventricle 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 It is difficult to localize with certainty on the brain MRI and does not enhance. Specifically, there are no enhancing or aggressive brain lesions. Finalized by Wilson Lu MD on 07/10/2024 11:31 AM Normal [facility] MR Brain WO and W contrast I Von 07-10-2024 STUDY: MRI brain with without contrast . CLINICAL HISTORY: Mental status change, unknown cause COMPARISON: July 03, 2024 brain MRI from [facility] Procedure: Multiplanar, multisequence imaging performed through the brain, including pre and post contrast T1 weighted images using IV contrast. Findings: The high attenuation focus shown on brain CT from July 07 at the anterior aspect of the third ventricle 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 It is difficult to localize with certainty on the brain MRI and does not enhance. Specifically, there are no enhancing or aggressive brain lesions. Extensive brain atrophy and ischemic white matter disease similar to the prior study There are no other intracranial masses, mass-effect, extra-axial fluid collection, or hydrocephalus. Sensitivity for acute hemorrhage limited on MRI, but grossly no acute hemorrhage identified. Midline sagittal structures are unremarkable including pituitary fossa, infundibulum, optic chiasm, corpus callosum, brainstem, fourth ventricle, cerebellum, and cranio-cervical junction. Flow voids documented in makah of [place] and dural venous sinuses. No pathologic contrast enhancement. Diffusion weighted images show no evidence for acute infarct. The deep white matter shows no acute changes. IMPRESSION: The high attenuation focus shown on brain CT from July 07 at the anterior aspect of the third ventricle 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 It is difficult to localize with certainty on the brain MRI and does not enhance. Specifically, there are no enhancing or aggressive brain lesions. Finalized by Wilson Lu MD on 07/10/2024 11:31 AM SECTRAPA Wilson Lu MD - 07/10/2024 STUDY: MRI brain with without contrast . CLINICAL HISTORY: Mental status change, unknown cause COMPARISON: July 03, 2024 brain MRI from [facility] Procedure: Multiplanar, multisequence imaging performed through the brain, including pre and post contrast T1 weighted images using IV contrast. Findings: The high attenuation focus shown on brain CT from July 07 at the anterior aspect of the third ventricle 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 It is difficult to localize with certainty on the brain MRI and does not enhance. Specifically, there are no enhancing or aggressive brain lesions. Extensive brain atrophy and ischemic white matter disease similar to the prior study There are no other intracranial masses, mass-effect, extra-axial fluid collection, or hydrocephalus. Sensitivity for acute hemorrhage limited on MRI, but grossly no acute hemorrhage identified. Midline sagittal structures are unremarkable including pituitary fossa, infundibulum, optic chiasm, corpus callosum, brainstem, fourth ventricle, cerebellum, and cranio-cervical junction. Flow voids documented in makah of [place] and dural venous sinuses. No pathologic contrast enhancement. Diffusion weighted images show no evidence for acute infarct. The deep white matter shows no acute changes. IMPRESSION: The high attenuation focus shown on brain CT from July 07 at the anterior aspect of the third ventricle 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 It is difficult to localize with certainty on the brain MRI and does not enhance. Specifically, there are no enhancing or aggressive brain lesions. Finalized by Wilson Lu MD on 07/10/2024 11:31 AM [facility] Radiology Study observation (narrative) [facility] MR Brain WO and W contrast I VOrdered By: Wilson Lu on 07-10-2024 [facility] Work Phone: Meningitis+Encephalitis path ogens DNA and RNA panel LILLIANA+non-probe (CSF)on 07-10-2024 C. gattii+neoformans DNA LILLIANA+non-probe Ql (CSF) Not detected Not Detected^No t Detected [facility] CMV DNA LILLIANA+non-probe Ql (CSF) Not detected Not Detected^No t Detected [facility] E. coli K1 DNA LILLIANA+non-probe Ql (CSF) Not detected Not Detected^No t Detected [facility] Enterovirus RNA LILLIANA+non-probe Ql (CSF) Not detected Not Detected^No t Detected [facility] H. influenzae DNA LILLIANA+non-probe Ql (CSF) Not detected Not Detected^No t Detected [facility] HHV 6 DNA LILLIANA+non-probe Ql (CSF) Not detected Not Detected^No t Detected [facility] HSV 1 DNA LILLIANA+non-probe Ql (CSF) Not detected Not Detected^No t Detected [facility] HSV 2 DNA LILLIANA+non-probe Ql (CSF) Not detected Not Detected^No t Detected [facility] L. monocytogenes DNA LILLIANA+non-probe Ql (CSF) Not detected Not Detected^No t Detected [facility] N. meningitidis DNA LILLIANA+non-probe Ql (CSF) Not detected Not Detected^No t Detected [facility] Parechovirus A RNA LILLIANA+non-probe Ql (CSF) Not detected Not Detected^No t Detected [facility] S. agalactiae DNA LILLIANA+non-probe Ql (CSF) Not detected Not Detected^No t Detected [facility] S. pneumoniae DNA LILLIANA+non-probe Ql (CSF) Not detected Not Detected^No t Detected [facility] Specimen source Nom (Body fld) CEREBROSPINAL FLUID [facility] VZV DNA LILLIANA+non-probe Ql (CSF) Not detected Not Detected^No t Detected [facility] No Panel Informationon 07-10 [facility] Protein (CSF) [Mass/Vol]on 0 07-10-2024 CSF TOTAL PROTEIN 45 mg/dL Normal 15-45 [facility] Comment on above: Performed By: #### T HYR, CBC, BMP, 2776-06, 42284-9 #### [facility] ([id number]) [address], [address] [place] [address] Reagin Ab VDRL Ql (CSF)on VDRL, Spinal Fluid Negative Normal Negative [facility] Comment on above: Result Comment: NOTE Test Performed by: [facility] [address] [place] [address] Playground Official: Eduardo Clark Ph.D.; CLIA# [id number] Performed By: #### T HYR, CBC, BMP, 2776-06, 45821-1 #### [facility] ([id number]) [address], [address] [place] [address] SPINAL FLUID CELL CTon 07-10 CSF CLARITY CLEAR Normal [facility] Comment on above: Performed By: #### T HYR, CBC, BMP, 2776-06, 20872-9 #### [facility] ([id number]) [address], [address] [place] [address] CSF COLOR COLORLESS Normal [facility] Comment on above: Performed By: #### T HYR, CBC, BMP, 2776-06, 08485-2 #### [facility] ([id number]) [address], [address] [place] [address] CSF COMMENT TUBE 3 Normal [facility] Comment on above: Performed By: #### T HYR, CBC, BMP, 2776-06, #### [facility] ([id number]) [address], [address] [place] [address] CSF NUCLEATED CELLS 1 /uL Normal 0-5 [facility] Comment on above: Performed By: #### T HYR, CBC, BMP, 2776-06, 14918-7 #### [facility] ([id number]) [address], [address] [place] [address] CSF RBC 48 /uL High 0-1 [facility] Comment on above: Performed By: #### T HYR, CBC, BMP, 2776-06, 21457-0 #### [facility] ([id number]) [address], [address] [place] [address] CSF SUPERNATANT COLORLESS Normal [facility] Comment on above: Performed By: #### T HYR, CBC, BMP, 2776-06, 15076-6 #### [facility] ([id number]) [address], [address] [place] [address] SF DIFF NUCLEATED CELLS <5/uL; DIFF NOT TESTED Normal [facility] Comment on above: Performed By: #### T HYR, CBC, BMP, 2776-06, 42452-0 #### [facility] ([id number]) [address], [address] [place] [address] B. burgdorferi IgG+IgM Qn (S )on 07-09-2024 [facility] ECG 12 leadon 07-09-2024 TRACEMASTERVUE [facility] IgG synthesis rate Calc (S+C SF) [Mass/Time]on 07-09-2024 CSF IgG Index Profile SEE COMMENTS 07/11/2024 12:55 PM Normal [facility] Comment on above: Result Comment: NOTE Test Result Flag Unit RefValue -- CSF IgG Index Profile IgG Index, CSF 0.44 <=0.70 IgG, CSF 3.4 mg/dL <=8.1 Albumin, CSF 24.8 mg/dL <=27.0 IgG/Albumin, CSF 0.14 <=0.21 Synthesis Rate, CSF 0.00 mg/24 h <=12 IgG, S 1230 mg/dL 767 - 1590 IgG/Albumin, S 0.32 <=0.40 Albumin Quotient, CSF/Serum 6.36 <=14 Albumin, S 3900 mg/dL 3500 - 5000 Test Performed by: [facility] [address] [place] [address] Playground Official: Eduardo Clark Ph.D.; CLIA# [id number] Test Performed by: [facility] [address] [place] [address] Playground Official: Eduardo Clark Ph.D.; CLIA# [id number] TANNER Virus Antibody W/Reflexon 07-09-2024 TANNER Virus Antibody Positive Abnormal [facility] Comment on above: Result Comment: NOTE Index interpretive criteria: <0.20 negative 0.20-0.40 indeterminate >0.40 positive INTERPRETATION Negative: Antibodies to JCV not detected. Indeterminate: Low level reactivity detected, see Inhibition Assay result below for the final antibody result. 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 The STRATIFY JCV(R) DxSelect(TM) Antibody Test is an enzyme-linked immunosorbent assay (CARLITO) designed to detect JCV antibodies to help identify individuals who have been exposed to the virus. Samples with low level reactivity in the detection assay are retested in a confirmation (inhibition) assay to confirm presence or absence of JCV-specific antibodies. Retrospective analyses of post marketing data from various sources, including observational studies and spontaneous reports obtained worldwide, suggest that the risk of developing PML may be associated with relative levels of serum anti-JCV antibody as measured by anti-JCV antibody index.(1) (1) TYSABRI(natalizumab)US Prescribing Information Performed by: [facility] [address] [place] [address] Jessenia Bagley MD, PhD, TANNER Virus Index 2.94 High [facility] Comment on above: Result Comment: NOTE Performed by: [facility] [address] [place] [address] Jessenia Bagley MD, PhD, Laboratory comment Ramone (Repo rt)on 07-09-2024 [facility] UNLISTED LAB TEST Sent to reference lab Normal [facility] Lyme Totalon 07-09-2024 B. burgdorferi IgG+IgM Qn (S) A1 NINF - 0.9 A1 [facility] Comment on above: Interpretation-------- <0.9 Negative 0.9 - 1.0 Equivocal >1.0 Positive No serological evidence of Borrelia infection.A non-reactive result does not exclude the possibility of Borrelia infection and cannot exclude early infection with B.burgdorferi. If Lyme borreliosis is suspected, a second sample should be collected and tested 2-4 weeks later. PROTIME AND INRon 07-09-2024 INR Coag (PPP) [Relative time] 1.1 {INR} Normal 0.8-1.1 [facility] Comment on above: Performed By: #### T HYR, CBC, BMP, #### [facility] ([id number]) [address], [address] [place] [address] PT Coag (PPP) [Time] 12.4 s Normal 9.8-13.2 [facility] Comment on above: Performed By: #### T HYR, CBC, BMP, 2776-06, #### [facility] ([id number]) [address], [address] [place] [address] Protime & INRon 07-09-2024 INR Coag (PPP) [Relative time] 1.1 {INR} [facility] PT Coag (PPP) [Time] 12.4 s [facility] Syphilis Total(Unknown Syphi lis Status)on 07-09-2024 T. pallidum IgG+IgM IA Ql (S) [facility] Comment on above: NON REACTIVE No serologic evidence of infection to Treponema pallidum (syphilis). Repeat testing may be considered in patients with suspected acute or primary syphilis in 2 to 4 weeks. T. pallidum IgG+IgM IA Ql (S )on 07-09-2024 [facility] Unlisted Lab Test TANNER viruson 07-09-2024 Laboratory comment Ramone (Report) Sent to reference lab [facility] AMMONIAon 07-08-2024 Ammonia (P) [Moles/Vol] 40 umol/L Normal 18-72 [facility] Comment on above: Result Comment: SPEC IMEN HEMOLYZED, RESULTS INCREASED SLIGHTLY HEMOLYZED NEW REFERENCE RANGE Performed By: #### T HYR, CBC, BMP, 2776-06, 45837-8 #### [facility] ([id number]) [address], [address] [place] [address] Ammoniaon 07-08-2024 Ammonia (P) [Moles/Vol] 40 umol/L 18 - 72 umol/L [facility] Comment on above: SPECIMEN HEMOLYZED, RESULTS INCREASED SLIGHTLY HEMOLYZED NEW REFERENCE RANGE Ammonia (P) [Moles/Vol]on [facility] BASIC METABOLIC PANLon 07-08 Anion gap [Moles/Vol] 6 mmol/L Normal 5-15 [facility] Comment on above: Performed By: #### T HYR, CBC, BMP, 2776-06, #### [facility] ([id number]) [address], [address] [place] [address] Calcium [Mass/Vol] 8.3 mg/dL Low 8.5-10.5 [facility] Comment on above: Performed By: #### T HYR, CBC, BMP, 2776-06, #### [facility] ([id number]) [address], [address] [place] [address] Chloride [Moles/Vol] 107 mmol/L Normal 98-109 [facility] Comment on above: Performed By: #### T HYR, CBC, BMP, 2776-06, 45941-1 #### [facility] ([id number]) [address], [address] [place] [address] CO2 [Moles/Vol] 29 mmol/L Normal 22-32 [facility] Comment on above: Performed By: #### T HYR, CBC, BMP, 2776-06, 46402-9 #### [facility] ([id number]) [address], [address] [place] [address] Creatinine [Mass/Vol] 0.91 mg/dL Normal 0.60-1.30 [facility] Comment on above: Result Comment: METH OD TRACEABLE TO IDMS STANDARD Performed By: #### T HYR, CBC, BMP, 2776-06, 91530-0 #### [facility] ([id number]) [address], [address] [place] [address] eGFR (CKD-EPI) NON-RACE DEPENDENT >90 Normal >59 [facility] Comment on above: Result Comment: Reported eGFR is based on the CKD-EPI 1 equation that does not use a race coefficient. Performed By: #### T HYR, CBC, BMP, 2776-06, #### [facility] ([id number]) [address], [address] [place] [address] Glucose [Mass/Vol] 91 mg/dL Normal 65-99 [facility] Comment on above: Performed By: #### T HYR, CBC, BMP, 2776-06, 12378-1 #### [facility] ([id number]) [address], [address] [place] [address] Potassium [Moles/Vol] 4.1 mmol/L Normal 3.5-5.0 [facility] Comment on above: Performed By: #### T HYR, CBC, BMP, 2776-06, #### [facility] ([id number]) [address], [address] [place] [address] Sodium [Moles/Vol] 142 mmol/L Normal 134-146 [facility] Comment on above: Performed By: #### T HYR, CBC, BMP, 2776-06, #### [facility] ([id number]) [address], [address] [place] [address] Urea nitrogen [Mass/Vol] 22 mg/dL Normal 5-23 [facility] Comment on above: Performed By: #### T HYR, CBC, BMP, 2776-06, #### [facility] ([id number]) [address], [address] [place] [address] Basic Metabolic Panelon 06-20 Anion gap [Moles/Vol] 6 mmol/L 5 - 15 mmol/L [facility] Calcium [Mass/Vol] 8.3 mg/dL Low 8.5 - 10. 5 mg/dL [facility] Chloride [Moles/Vol] 107 mmol/L 98 - 10 9 mmol/L [facility] CO2 [Moles/Vol] 29 mmol/L 22 - 32 mmol/L [facility] Creatinine [Mass/Vol] 0.91 mg/dL 0.60 - 1.30 mg/dL [facility] Comment on above: METHOD TRACEABLE TO IDMS STANDARD eGFR (CKD-EPI)non-race dependent - PINF [facility] Comment on above: Reported eGFR is based on the CKD-EPI 2020 equation that does not use a race coefficient. Glucose [Mass/Vol] 91 mg/dL 65 - 99 mg/dL [facility] Interpretation and review of laboratory results Abnormal [facility] Potassium [Moles/Vol] 4.1 mmol/L 3.5 - 5.0 mmol/L [facility] Sodium [Moles/Vol] 142 mmol/L 134 - 146 mmol/L [facility] Urea nitrogen [Mass/Vol] 22 mg/dL 5 - 23 mg/dL [facility] CBC without diffon Erythrocyte distribution width (RBC) [Ratio] 15.6 % High 11.5 - 15.0 % [facility] Hematocrit (Bld) [Volume fraction] 39.1 % 39 - 49 % [facility] Hemoglobin (Bld) [Mass/Vol] 12.7 g/dL Low 13.0 - 17.0 g/dL [facility] Interpretation and review of laboratory results Abnormal [facility] MCH (RBC) [Entitic mass] 24.5 pg Low 27 - 34 pg [facility] MCHC (RBC) [Mass/Vol] 32.5 g/dL 32 - 3 6 g/dL [facility] MCV (RBC) [Entitic vol] 75 fL Low 80 - 100 fL [facility] Platelet mean volume (Bld) [Entitic vol] 8.6 fL 7 - 12 fL [facility] Platelets (Bld) [#/Vol] 154 10*3/uL [facility] RBC (Bld) [#/Vol] 5.19 10*6/uL [facility] WBC corrected for nucl RBC Auto (Bld) [#/Vol] 4.1 [facility] COMPLETE BLOOD COUNTon 07-08 Erythrocyte distribution width (RBC) [Ratio] 15.6 % High 11.5-15.0 [facility] Comment on above: Performed By: #### T HYR, CBC, BMP, 9 #### [facility] ([id number]) [address], [address] [place] [address] Hematocrit (Bld) [Volume fraction] 39.1 % Normal 39-49 [facility] Comment on above: Performed By: #### T HYR, CBC, BMP, 2776-06, 47492-0 #### [facility] ([id number]) [address], [address] [place] [address] Hemoglobin (Bld) [Mass/Vol] 12.7 g/dL Low 13.0-17.0 [facility] Comment on above: Performed By: #### T HYR, CBC, BMP, 2776-06, #### [facility] ([id number]) [address], [address] [place] [address] MCH (RBC) [Entitic mass] 24.5 pg Low 27-34 [facility] Comment on above: Performed By: #### T HYR, CBC, BMP, 2776-06, #### [facility] ([id number]) [address], [address] [place] [address] MCHC (RBC) [Mass/Vol] 32.5 g/dL Normal 32-36 [facility] Comment on above: Performed By: #### T HYR, CBC, BMP, 2776-06, #### [facility] ([id number]) [address], [address] [place] [address] MCV (RBC) [Entitic vol] 75 fL Low 80-100 [facility] Comment on above: Performed By: #### T HYR, CBC, BMP, 2776-06, #### [facility] ([id number]) [address], [address] [place] [address] Platelet mean volume (Bld) [Entitic vol] 8.6 fL Normal 7-[address] [facility] Comment on above: Performed By: #### T HYR, CBC, BMP, 2776-06, #### [facility] ([id number]) [address], [address] [place] [address] Platelets (Bld) [#/Vol] 154 10*3/uL Normal 150-450 [facility] Comment on above: Performed By: #### T HYR, CBC, BMP, 2776-06, #### [facility] ([id number]) [address], [address] [place] [address] RBC COUNT 5.19 X10E12/L Normal 4.10-5.[address] [facility] Comment on above: Performed By: #### T HYR, CBC, BMP, 7-1, #### [facility] ([id number]) [address], [address] [place] [address] WBC (Bld) [#/Vol] 4.1 10*3/uL Normal 4.0-11.0 [facility] Comment on above: Performed By: #### T HYR, CBC, BMP, 2776-, #### [facility] ([id number]) [address], [address] [place] [address] Cobalamin (Vitamin B12) [Mas s/Vol]on 07-08-2024 [facility] EEGon 07-08-2024 Images from the original result were not included. EEG REPORT (Routine) EEG Service Date: 07/08/2024 HISTORY: Noé Jeffery is a 58 y.o. unknown hand preference male with seizures. The study is to assist clinical diagnosis and management. CURRENT MEDICATIONS: Aricept, cymbalta, protonix, zofran odt, seroquel TECHNICAL DESCRIPTION: This is a 25 channel digital scalp EEG that was performed utilizing International 10/20 Montage System for electrode placement. Digital EEG data was collected from 25 channels. Multi-reformatted montages were used during the EEG analysis. One additional channel was used to monitor EKG during the EEG study. EEG INTERPRETATION: Duration and Quality: - Duration: 30 minutes - Quality: Poor quality for digital EEG - Artifacts: Large and well recognized Status of Patient: - Awake Background: - Anterior: Rhythmic activity with a frequency of 16-18 Hz and amplitude <10 V was seen in the bilateral anterior regions. - Posterior: Rhythmic activity with a frequency of 7-8 Hz and amplitude of 30-40 V was seen intermittently in the bilateral posterior head regions. Response to Photic Stimulation: - There was no sustained driving in response to photic stimulation at all the tested frequencies. Response to Hyperventilation: - No significant EEG background change during and after hyperventilation that lasted for 3 minutes and was performed with Poor efforts. Sleep: - Not identified/No sustained sleep pattern Significant Findings: - Sustained regional slowing: Not identified - Asymmetry: Not identified - Generalized slowing: Anteriorly dominant intermittent rhythmic; frequency 1-2 Hz; amplitude 40-60 V; seen as 3-5 second segments; occupied 20-30 % record - Epileptiform discharge(s): Not identified - Electrographic seizure(s): Not identified Events: - Clinical: Not identified - EEG: Not identified EEG CLASSIFICATION: Abnormal (Awake) - Background slow - Generalized slowing intermittent rhythmic CLINICAL CORRELATION: This study is abnormal. It shows evidences to indicate mild to moderate diffuse encephalopathy that may be correlated with a disorder involving both cortical and subcortical systems. Clinical correlation is recommended. Reji Sanon MD, PhD Neurology/Clinical Neurophysiology MANUALLY TRANSCRIBED RESULTS [facility] Folateon 07-08-2024 Folate [Mass/Vol] 10.2 ng/mL 5.8 - PINF ng/mL [facility] Comment on above: NEW REFERENCE RANGE Folate [Mass/Vol]on 07-08-19 [facility] FOLIC ACID 10.2 ng/mL Normal >5.8 [facility] Comment on above: Result Comment: NEW REFERENCE RANGE Performed By: #### T HYR, CBC, BMP, 2777-1, 57358-3 #### [facility] ([id number]) [address] [place] [address], [address] [place] [address] HIV 1&2 AB/AG Screen (P24 AG )on 07-08-2024 HIV 1+2 Ab+HIV1 p24 Ag IA Ql Non-Reactive Non-Reactiv e^Non-React deirdre [facility] Comment on above: NEW TEST METHOD NOTE This information has been disclosed to you from confidential records protected from disclosure by state law. You shall make no further disclosure of this information without the specific, written and informed release of the individual to whom it pertains, or as otherwise permitted by state law. A general authorization for the release of medical or other information is not sufficient for the purpose of the release of HIV test results or diagnoses. HIV 1+2 Ab+HIV1 p24 Ag IA Ql on 07-08-2024 [facility] 1 and 2 Ab/Ag Screen Non-Reactive Normal NRCT [facility] Comment on above: Result Comment: NEW TEST METHOD NOTE This information has been disclosed to you from confidential records protected from disclosure by state law. You shall make no further disclosure of this information without the specific, written and informed release of the individual to whom it pertains, or as otherwise permitted by state law. A general authorization for the release of medical or other information is not sufficient for the purpose of the release of HIV test results or diagnoses. Performed By: #### T HYR, CBC, BMP, 2777-, 78561-7 #### [facility] ([id number]) [address], [address] [place] [address] VITAMIN B12on 07-08-2024 Cobalamin (Vitamin B12) [Mass/Vol] 526 pg/mL Normal 180-914 [facility] Comment on above: Performed By: #### T HYR, CBC, BMP, 7, 92155-7 #### [facility] ([id number]) [address], [address] [place] [address] Vitamin B12on 07-08-2024 Cobalamin (Vitamin B12) [Mass/Vol] 526 pg/mL 180 - 914 pg/mL [facility] B. burgdorferi IgG+IgM Qn (S )on 07-07-2024 LYME TOTAL <0.2 Normal <0.9 [facility] Comment on above: Result Comment: Interpretation-------- <0.9 Negative 0.9 - 1.0 Equivocal >1.0 Positive No serological evidence of Borrelia infection.A non-reactive result does not exclude the possibility of Borrelia infection and cannot exclude early infection with B.burgdorferi. If Lyme borreliosis is suspected, a second sample should be collected and tested 2-4 weeks later. Performed By: #### C BC, BMP, 91409-8, 45881-6 #### [facility] ([id number]) [address], [address] [place] [address] BASIC METABOLIC PANLon 07-07 Anion gap [Moles/Vol] 8 mmol/L Normal 5-15 [facility] Comment on above: Performed By: #### C BC, BMP, 62071-1, 16927-7 #### [facility] ([id number]) [address], [address] [place] [address] Calcium [Mass/Vol] 8.8 mg/dL Normal 8.5-10.5 [facility] Comment on above: Performed By: #### Emily GAMA, BMP, 06052-8, 93194-3 #### [facility] ([id number]) [address], [address] [place] [address] Chloride [Moles/Vol] 107 mmol/L Normal 98-109 [facility] Comment on above: Performed By: #### Emily GAMA, BMP, 72940-1, 04275-0 #### [facility] ([id number]) [address], [address] [place] [address] CO2 [Moles/Vol] 30 mmol/L Normal 22-32 [facility] Comment on above: Performed By: #### Emily GAMA, BMP, 21366-2, 66502-6 #### [facility] ([id number]) [address], [address] [place] [address] Creatinine [Mass/Vol] 1.00 mg/dL Normal 0.60-1.30 [facility] Comment on above: Result Comment: METH OD TRACEABLE TO IDMS STANDARD Performed By: #### Emily GAMA, BMP, 37786-4, 37049-3 #### [facility] ([id number]) [address], [address] [place] [address] GFR/1.73 sq M.predicted among non-blacks MDRD (S/P/Bld) [Vol rate/Area] 87 mL/min/{1.73_m2} Normal >[address] [facility] Comment on above: Result Comment: Reported eGFR is based on the CKD-EPI 2020 equation that does not use a race coefficient. Performed By: #### C DEE GAMA, 78380-2, 45497-4 #### [facility] ([id number]) [address], [address] [place] [address] Glucose [Mass/Vol] 106 mg/dL High 65-99 [facility] Comment on above: Performed By: #### DEE MOORE, 52220-6, 88639-4 #### [facility] ([id number]) [address], [address] [place] [address] Potassium [Moles/Vol] 3.9 mmol/L Normal 3.5-5.0 [facility] Comment on above: Performed By: #### DEE MOORE, 43053-1, 32227-7 #### [facility] ([id number]) [address], [address] [place] [address] Sodium [Moles/Vol] 145 mmol/L Normal 134-146 [facility] Comment on above: Performed By: #### Emily GAMA, DEE, 12832-7, 51155-3 #### [facility] ([id number]) [address], [address] [place] [address] Urea nitrogen [Mass/Vol] 23 mg/dL Normal 5-23 [facility] Comment on above: Performed By: #### DEE MOORE, 05432-4, 95459-1 #### [facility] ([id number]) [address], [address] [place] [address] Basic Metabolic Panelon 06-20 Anion gap [Moles/Vol] 8 mmol/L 5 - 15 mmol/L [facility] Calcium [Mass/Vol] 8.8 mg/dL 8.5 - 10. 5 mg/dL [facility] Chloride [Moles/Vol] 107 mmol/L 98 - 10 9 mmol/L [facility] CO2 [Moles/Vol] 30 mmol/L 22 - 32 mmol/L [facility] Creatinine [Mass/Vol] 1 mg/dL 0.60 - 1.30 mg/dL [facility] Comment on above: METHOD TRACEABLE TO [facility] STANDARD eGFR (CKD-EPI)non-race dependent 87 - PINF [facility] Comment on above: Reported eGFR is based on the CKD-EPI 2020 equation that does not use a race coefficient. Glucose [Mass/Vol] 106 mg/dL High 65 - 99 mg/dL [facility] Interpretation and review of laboratory results Abnormal [facility] Potassium [Moles/Vol] 3.9 mmol/L 3.5 - 5.0 mmol/L [facility] Sodium [Moles/Vol] 145 mmol/L 134 - 146 mmol/L [facility] Urea nitrogen [Mass/Vol] 23 mg/dL 5 - 23 mg/dL [facility] CBC without diffon Erythrocyte distribution width (RBC) [Ratio] 15.3 % High 11.5 - 15.0 % [facility] Hematocrit (Bld) [Volume fraction] 41.3 % 39 - 49 % [facility] Hemoglobin (Bld) [Mass/Vol] 13.4 g/dL 13.0 - 17.0 g/dL [facility] Interpretation and review of laboratory results Abnormal [facility] MCH (RBC) [Entitic mass] 24.7 pg Low 27 - 34 pg [facility] MCHC (RBC) [Mass/Vol] 32.5 g/dL 32 - 3 6 g/dL [facility] MCV (RBC) [Entitic vol] 76 fL Low 80 - 100 fL [facility] Platelet mean volume (Bld) [Entitic vol] 7.8 fL 7 - 12 fL [facility] Platelets (Bld) [#/Vol] 152 10*3/uL [facility] RBC (Bld) [#/Vol] 5.45 10*6/uL [facility] WBC corrected for nucl RBC Auto (Bld) [#/Vol] 4.4 [facility] COMPLETE BLOOD COUNTon 07-07 Erythrocyte distribution width (RBC) [Ratio] 15.3 % High 11.5-15.0 [facility] Comment on above: Performed By: #### C BC, BMP, 68536-9, 60574-2 #### [facility] ([id number]) [address], [address] [place] [address] Hematocrit (Bld) [Volume fraction] 41.3 % Normal 39-49 [facility] Comment on above: Performed By: #### C BC, BMP, 98816-4, 99743-2 #### [facility] ([id number]) [address], [address] [place] [address] Hemoglobin (Bld) [Mass/Vol] 13.4 g/dL Normal 13.0-17.0 [facility] Comment on above: Performed By: #### Emily BC, BMP, 49753-5, 55739-3 #### [facility] ([id number]) [address], [address] [place] [address] MCH (RBC) [Entitic mass] 24.7 pg Low 27-34 [facility] Comment on above: Performed By: #### C BC, BMP, 53600-0, 91436-0 #### [facility] ([id number]) [address], [address] [place] [address] MCHC (RBC) [Mass/Vol] 32.5 g/dL Normal 32-36 [facility] Comment on above: Performed By: #### C BC, BMP, 96557-1, 24535-2 #### [facility] ([id number]) [address], [address] [place] [address] MCV (RBC) [Entitic vol] 76 fL Low 80-100 [facility] Comment on above: Performed By: #### C BC, BMP, 76793-1, 13135-2 #### [facility] ([id number]) [address], [address] [place] [address] Platelet mean volume (Bld) [Entitic vol] 7.8 fL Normal 7-[address] [facility] Comment on above: Performed By: #### C NATAN, BMP, 11553-9, 18525-7 #### [facility] ([id number]) [address], [address] [place] [address] Platelets (Bld) [#/Vol] 152 10*3/uL Normal 150-450 [facility] Comment on above: Performed By: #### C NATAN, BMP, 20034-2, 08738-1 #### [facility] ([id number]) [address], [address] [place] [address] RBC COUNT 5.45 X10E12/L Normal 4.10-5.[address] [facility] Comment on above: Performed By: #### Emily BC, BMP, 02435-8, 60557-9 #### [facility] ([id number]) [address], [address] [place] [address] WBC (Bld) [#/Vol] 4.4 10*3/uL Normal 4.0-11.0 [facility] Comment on above: Performed By: #### Emily GAMA, BMP, 72954-4, 07809-9 #### [facility] ([id number]) [address], [address] [place] [address] CT BRAIN WO CONTon 5 CT BRAIN WO CONT CT BRAIN WO CONT CT BRAIN WO CONT CLINICAL HISTORY: Transient alteration of awareness. Early onset Alzheimer's. COMPARISON: No relevant prior studies available. TECHNIQUE: CT brain without intravenous contrast. Automated exposure control was utilized. All CT scans at this facility use dose modulation, iterative reconstruction, and/or weight based dosing when appropriate to reduce radiation dose to as low as reasonably achievable. FINDINGS: No acute intracranial hemorrhage, mass effect, shift of midline structures, or abnormal extra-axial fluid collection. Moderate overall brain volume loss, greater than expected for patient age. Patchy areas of hypoattenuation within the supratentorial white matter are nonspecific but most commonly associated with chronic microvascular ischemic change. Prominent appearance of the supratentorial ventricular system likely secondary to periventricular volume loss. Basal cisterns are patent. Partial empty sella. Slight asymmetric increased density of the left ICA terminus and left M1 segment middle cerebral artery. Orbits are symmetric. No depressed or displaced calvarial fracture. Prominent periapical lucency of the posterior most right maxillary molar. Mild mucosal thickening of the ethmoid air cells and minimal mucosal thickening of the lateral maxillary alveolar recesses. Trace fluid within the inferior left mastoid air cells. Presumed cerumen within the bilateral external auditory canals. IMPRESSION: * No acute intracranial hemorrhage, mass effect, or evidence of acute large vessel territorial ischemia. * Slight asymmetric increased density of the left ICA terminus and left M1 segment middle cerebral artery which is likely artifactual. If there is concern for acute thrombus, CTA can be considered. * Moderate overall brain volume loss, greater than expected for patient age. This report contains a significant result and/or recommendation, which requires the attention of the licensed caregiver responsible for this patient. Therefore, I specifically designated this report to be telephoned by the radiology department. Finalized by Delonte Johnson MD on 07/07/2024 9:19 AM Normal [facility] CT Head WO contraston 2024 CT BRAIN WO CONT CLINICAL HISTORY: Transient alteration of awareness. Early onset Alzheimer's. COMPARISON: No relevant prior studies available. TECHNIQUE: CT brain without intravenous contrast. Automated exposure control was utilized. All CT scans at this facility use dose modulation, iterative reconstruction, and/or weight based dosing when appropriate to reduce radiation dose to as low as reasonably achievable. FINDINGS: No acute intracranial hemorrhage, mass effect, shift of midline structures, or abnormal extra-axial fluid collection. Moderate overall brain volume loss, greater than expected for patient age. Patchy areas of hypoattenuation within the supratentorial white matter are nonspecific but most commonly associated with chronic microvascular ischemic change. Prominent appearance of the supratentorial ventricular system likely secondary to periventricular volume loss. Basal cisterns are patent. Partial empty sella. Slight asymmetric increased density of the left ICA terminus and left M1 segment middle cerebral artery. Orbits are symmetric. No depressed or displaced calvarial fracture. Prominent periapical lucency of the posterior most right maxillary molar. Mild mucosal thickening of the ethmoid air cells and minimal mucosal thickening of the lateral maxillary alveolar recesses. Trace fluid within the inferior left mastoid air cells. Presumed cerumen within the bilateral external auditory canals. IMPRESSION: * No acute intracranial hemorrhage, mass effect, or evidence of acute large vessel territorial ischemia. * Slight asymmetric increased density of the left ICA terminus and left M1 segment middle cerebral artery which is likely artifactual. If there is concern for acute thrombus, CTA can be considered. * Moderate overall brain volume loss, greater than expected for patient age. This report contains a significant result and/or recommendation, which requires the attention of the licensed caregiver responsible for this patient. Therefore, I specifically designated this report to be telephoned by the radiology department. Finalized by Delonte Johnson MD on 07/07/2024 9:19 AM SECTRAPA Delonte Johnson MD - 07/07/2024 CT BRAIN WO CONT CLINICAL HISTORY: Transient alteration of awareness. Early onset Alzheimer's. COMPARISON: No relevant prior studies available. TECHNIQUE: CT brain without intravenous contrast. Automated exposure control was utilized. All CT scans at this facility use dose modulation, iterative reconstruction, and/or weight based dosing when appropriate to reduce radiation dose to as low as reasonably achievable. FINDINGS: No acute intracranial hemorrhage, mass effect, shift of midline structures, or abnormal extra-axial fluid collection. Moderate overall brain volume loss, greater than expected for patient age. Patchy areas of hypoattenuation within the supratentorial white matter are nonspecific but most commonly associated with chronic microvascular ischemic change. Prominent appearance of the supratentorial ventricular system likely secondary to periventricular volume loss. Basal cisterns are patent. Partial empty sella. Slight asymmetric increased density of the left ICA terminus and left M1 segment middle cerebral artery. Orbits are symmetric. No depressed or displaced calvarial fracture. Prominent periapical lucency of the posterior most right maxillary molar. Mild mucosal thickening of the ethmoid air cells and minimal mucosal thickening of the lateral maxillary alveolar recesses. Trace fluid within the inferior left mastoid air cells. Presumed cerumen within the bilateral external auditory canals. IMPRESSION: * No acute intracranial hemorrhage, mass effect, or evidence of acute large vessel territorial ischemia. * Slight asymmetric increased density of the left ICA terminus and left M1 segment middle cerebral artery which is likely artifactual. If there is concern for acute thrombus, CTA can be considered. * Moderate overall brain volume loss, greater than expected for patient age. This report contains a significant result and/or recommendation, which requires the attention of the licensed caregiver responsible for this patient. Therefore, I specifically designated this report to be telephoned by the radiology department. Finalized by Delonte Johnson MD on 07/07/2024 9:19 AM [email or web address] Radiology Study observation (narrative) [facility] CT Head WO contrastOrdered B y: Delonte Johnson on 07-07-2024 [email or web address] Work Phone: EEGon 07-07-2024 Images from the original result were not included. EEG REPORT (Routine) EEG Service Date: 07/06/2024 HISTORY: Noé Jeffery is a 58 y.o. unknown hand preference male with seizures. The study is to assist clinical diagnosis and management. CURRENT MEDICATIONS: Tylenol, Glutose, D5W, D50W, Aricept, Cymbalta, Porcine, Nicoderm, Zofran, Ptotonix, Seroquel, Senokot, Geodon TECHNICAL DESCRIPTION: This is a 25 channel digital scalp EEG that was performed utilizing [employer] 10/20 Montage System for electrode placement. Digital EEG data was collected from 25 channels. Multi-reformatted montages were used during the EEG analysis. One additional channel was used to monitor EKG during the EEG study. EEG INTERPRETATION: Duration and Quality: - Duration: 17 minutes - Quality: Fair quality for digital EEG - Artifacts: Large and well recognized Status of Patient: - Awake Background: - Anterior: Rhythmic activity with a frequency of 18-20 Hz and amplitude 7-10 V was seen in the bilateral anterior regions. - Posterior: Well-defined, sustained, and symmetrical posterior dominant rhythm with a frequency of 7-8 Hz and amplitude of 30-40 V in the bilateral occipital regions. This activity demonstrated waxing and waning in response to eye closing and opening. Response to Photic Stimulation: - Not performed due to clinical condition/limitation Response to Hyperventilation: - Not performed due to clinical condition/limitation Sleep: - Not identified/No sustained sleep pattern Significant Findings: - Sustained regional slowing: Not identified - Asymmetry: Not identified - Generalized slowing: Not identified - Epileptiform discharge(s): Not identified - Electrographic seizure(s): Not identified Events: - Clinical: Not identified - EEG: Not identified EEG CLASSIFICATION: Abnormal (Awake) - Background slow CLINICAL CORRELATION: This study is abnormal. It shows evidences to indicate possible mild diffuse encephalopathy that may be correlated with a functional etiology. Clinical correlation is recommended. Reji Sanon MD, PhD Neurology/Clinical Neurophysiology MANUALLY TRANSCRIBED RESULTS EEGOrdered By: Reji Sanon on 07-07-2024 [facility] [employer] [facility] Work Phone: T. pallidum IgG+IgM IA Ql (S )on 07-07-2024 Syphilis Total <0.2 Normal 0.0-0.8 [facility] Comment on above: Result Comment: NON REACTIVE No serologic evidence of infection to Treponema pallidum (syphilis). Repeat testing may be considered in patients with suspected acute or primary syphilis in 2 to 4 weeks. Performed By: #### C [place], BMP, 98184-0, 07568-0 #### [facility] ([id number]) [address], [address] [place] [address] BASIC METABOLIC PANLon 07-06 Anion gap [Moles/Vol] 7 mmol/L Normal 5-15 [facility] Comment on above: Performed By: #### T HYR, CBC, BMP, 2776-06, 75823-6 #### [facility] ([id number]) [address], [address] [place] [address] Calcium [Mass/Vol] 8.8 mg/dL Normal 8.5-10.5 [facility] Comment on above: Performed By: #### T HYR, CBC, BMP, 2776-06, #### [facility] ([id number]) [address], [address] [place] [address] Chloride [Moles/Vol] 105 mmol/L Normal 98-109 [facility] Comment on above: Performed By: #### T HYR, CBC, BMP, 2776-06, #### [facility] ([id number]) [address], [address] [place] [address] CO2 [Moles/Vol] 30 mmol/L Normal 22-32 [facility] Comment on above: Performed By: #### T HYR, CBC, BMP, 2776-06, #### [facility] ([id number]) [address], [address] [place] [address] Creatinine [Mass/Vol] 1.00 mg/dL Normal 0.60-1.30 [facility] Comment on above: Result Comment: METH OD TRACEABLE TO IDMS STANDARD Performed By: #### T HYR, CBC, BMP, 2776-06, #### [facility] ([id number]) [address], [facility] [address] [place] [address] GFR/1.73 sq M.predicted among non-blacks MDRD (S/P/Bld) [Vol rate/Area] 87 mL/min/{1.73_m2} Normal >[address] [facility] Comment on above: Result Comment: Reported eGFR is based on the CKD-EPI 2020 equation that does not use a race coefficient. Performed By: #### T HYR, CBC, BMP, 2776-06, #### [facility] ([id number]) [address], [address] [place] [address] Glucose [Mass/Vol] 102 mg/dL High 65-99 [facility] Comment on above: Performed By: #### T HYR, CBC, BMP, 2776-06, #### [facility] ([id number]) [address] [address] [place] [address] Potassium [Moles/Vol] 4.0 mmol/L Normal 3.5-5.0 [facility] Comment on above: Performed By: #### T HYR, CBC, BMP, #### [facility] ([id number]) [address], [address] [place] [address] Sodium [Moles/Vol] 142 mmol/L Normal 134-146 [facility] Comment on above: Performed By: #### T HYR, CBC, BMP, 7-1, 54877-3 #### [facility] ([id number]) [address], [address] [place] [address] Urea nitrogen [Mass/Vol] 22 mg/dL Normal 5-23 [facility] Comment on above: Performed By: #### T HYR, CBC, BMP, 7-, #### [facility] ([id number]) [address], [address] [place] [address] Basic Metabolic Panelon 06-20 Anion gap [Moles/Vol] 7 mmol/L 5 - 15 mmol/L [facility] Calcium [Mass/Vol] 8.8 mg/dL 8.5 - 10. 5 mg/dL [facility] Chloride [Moles/Vol] 105 mmol/L 98 - 10 9 mmol/L [facility] CO2 [Moles/Vol] 30 mmol/L 22 - 32 mmol/L [facility] Creatinine [Mass/Vol] 1 mg/dL 0.60 - 1.30 mg/dL [facility] Comment on above: METHOD TRACEABLE TO IDWA STANDARD eGFR (CKD-EPI)non-race dependent 87 - PINF [facility] Comment on above: Reported eGFR is based on the CKD-EPI 2020 equation that does not use a race coefficient. Glucose [Mass/Vol] 102 mg/dL High 65 - 99 mg/dL [facility] Interpretation and review of laboratory results Abnormal [facility] Potassium [Moles/Vol] 4 mmol/L 3.5 - 5.0 mmol/L [facility] Sodium [Moles/Vol] 142 mmol/L 134 - 146 mmol/L [facility] Urea nitrogen [Mass/Vol] 22 mg/dL 5 - 23 mg/dL [facility] CBC without diffon Erythrocyte distribution width (RBC) [Ratio] 15.5 % High 11.5 - 15.0 % [facility] Hematocrit (Bld) [Volume fraction] 42.8 % 39 - 49 % [facility] Hemoglobin (Bld) [Mass/Vol] 14.1 g/dL 13.0 - 17.0 g/dL [facility] Interpretation and review of laboratory results Abnormal [facility] MCH (RBC) [Entitic mass] 24.7 pg Low 27 - 34 pg [facility] MCHC (RBC) [Mass/Vol] 33 g/dL 32 - 3 6 g/dL [facility] MCV (RBC) [Entitic vol] 75 fL Low 80 - 100 fL [facility] Platelet mean volume (Bld) [Entitic vol] 7.8 fL 7 - 12 fL [facility] Platelets (Bld) [#/Vol] 169 10*3/uL [facility] RBC (Bld) [#/Vol] 5.71 10*6/uL High [facility] WBC corrected for nucl RBC Auto (Bld) [#/Vol] 4.7 [facility] COMPLETE BLOOD COUNTon 07-06 Erythrocyte distribution width (RBC) [Ratio] 15.5 % High 11.5-15.0 [facility] Comment on above: Performed By: #### T HYR, CBC, BMP, 2776-06, 80547-1 #### [facility] ([id number]) [address], [address] [place] [address] Hematocrit (Bld) [Volume fraction] 42.8 % Normal 39-49 [facility] Comment on above: Performed By: #### T HYR, CBC, BMP, 2776-06, 59886-3 #### [facility] ([id number]) [address], [address] [place] [address] Hemoglobin (Bld) [Mass/Vol] 14.1 g/dL Normal 13.0-17.0 [facility] Comment on above: Performed By: #### T HYR, CBC, BMP, 2776-06, #### [facility] ([id number]) [address], [address] [place] [address] MCH (RBC) [Entitic mass] 24.7 pg Low 27-34 [facility] Comment on above: Performed By: #### T HYR, CBC, BMP, 2776-06, #### [facility] ([id number]) [address], [address] [place] [address] MCHC (RBC) [Mass/Vol] 33.0 g/dL Normal 32-36 [facility] Comment on above: Performed By: #### T HYR, CBC, BMP, 2776-06, #### [facility] ([id number]) [address], [address] [place] [address] MCV (RBC) [Entitic vol] 75 fL Low 80-100 [facility] Comment on above: Performed By: #### T HYR, CBC, BMP, 2776-06, #### [facility] ([id number]) [address], [facility] [address] [place] [address] Platelet mean volume (Bld) [Entitic vol] 7.8 fL Normal 7-[address] [facility] Comment on above: Performed By: #### T HYR, CBC, BMP, 2776-06, #### [facility] ([id number]) [address], [address] [place] [address] Platelets (Bld) [#/Vol] 169 10*3/uL Normal 150-450 [facility] Comment on above: Performed By: #### T HYR, CBC, BMP, 2776-06, #### [facility] ([id number]) [address], [address] [place] [address] RBC COUNT 5.71 X10E12/L High 4.10-5.[address] [facility] Comment on above: Performed By: #### T HYR, CBC, BMP, 2776-06, 09240-1 #### [facility] ([id number]) [address], [address] [place] [address] WBC (Bld) [#/Vol] 4.7 10*3/uL Normal 4.0-11.0 [facility] Comment on above: Performed By: #### T HYR, CBC, BMP, 2776-06, #### [facility] ([id number]) [address], [address] [place] [address] MAGNESIUMon 07-06-2024 Magnesium [Mass/Vol] 1.9 mg/dL Normal 1.8-2.6 [facility] Comment on above: Performed By: #### T HYR, CBC, BMP, 2776-06, #### [facility] ([id number]) [address], [address] [place] [address] Magnesiumon 07-06-2024 Magnesium [Mass/Vol] 1.9 mg/dL 1.8 - 2 .6 mg/dL [facility] No Panel Informationon 07-06 [facility] PHOSPHORUSon 07-06-2024 Phosphate [Mass/Vol] 4.1 mg/dL Normal 2.4-4.9 [facility] Comment on above: Performed By: #### T HYR, CBC, BMP, 2776-06, 67240-8 #### [facility] ([id number]) [address], [address] [place] [address] Phosphoruson 07-06-2024 Phosphate [Mass/Vol] 4.1 mg/dL 2.4 - 4 .9 mg/dL [facility] THYROID PROFILEon 07-06-2024 Free T4 [Mass/Vol] 0.84 ng/dL Normal 0.61-1.60 [facility] Comment on above: Performed By: #### T HYR, CBC, BMP, 2776-06, 47445-4 #### [facility] ([id number]) [address], [address] [place] [address] TSH 1.16 uIU/mL Normal 0.49-4.67 [facility] Comment on above: Performed By: #### T HYR, CBC, BMP, 2777-1, 76405-5 #### [facility] ([id number]) [address], [address] [place] [address] Thyroid profile includes TSH FT4on 07-06-2024 Free T4 [Mass/Vol] 0.84 ng/dL 0.61 - 1. 60 ng/dL [facility] TSH Qn 1.16 m[IU]/L [facility] ACETAMINOPHENon 06-24-2024 Acetaminophen [Mass/Vol] 3.3 ug/mL Low 10.0-30.0 [facility] Comment on above: Result Comment: Refe rence ranges are for therapeutic limits. Performed By: #### C BCA, CMP, 5643-2, 3298-7, 4024-6, THYR #### [facility] ([id number]) [address] [place] [address] CBC AND AUTO DIFFon 06-24-19 25 ABSOLUTE BASOPHIL 0.1 X10E9/L Normal 0.0-0.2 [facility] Comment on above: Performed By: #### C BCA, CMP, 5643-2, 3298-7, 4024-6, THYR #### [facility] ([id number]) [address] [place] [address]78[address] ABSOLUTE NEUTROPHIL 3.1 X10E9/L Normal 1.5-6.6 [facility] Comment on above: Performed By: #### C BCA, CMP, 5643-2, 3298-7, 4024-6, THYR #### [facility] ([id number]) [address] [place] [address] 66060 Basophils/100 WBC (Bld) 1.0 % Normal [facility] Comment on above: Performed By: #### C CARRIE, CMP, 5643-2, 3298-7, 4024-6, THYR #### [facility] ([id number]) [address] [place] [address]60 Eosinophils (Bld) [#/Vol] 0.1 10*3/uL Normal 0.0-0.4 [facility] Comment on above: Performed By: #### C CARRIE, CMP, 5643-2, 3298-7, 4024-6, THYR #### [facility] ([id number]) [address] [place] [address] 26434 Eosinophils/100 WBC (Bld) 1.4 % Normal [facility] Comment on above: Performed By: #### C CARRIE, [facility], 5643-2, 3298-7, 4024-6, THYR #### [facility] ([id number]) [address] [place] [address] Erythrocyte distribution width (RBC) [Ratio] 15.6 % High 11.5-15.0 [facility] Comment on above: Performed By: #### C CARRIE, CMP, 5643-2, 3298-7, 4024-6, THYR #### [facility] ([id number]) [address] [place] [address]182 Hematocrit (Bld) [Volume fraction] 42.7 % Normal 39-49 [facility] Comment on above: Performed By: #### C CARRIE, CMP, 5643-2, 3298-7, 4024-6, THYR #### [facility] ([id number]) [address] [place] [address]46 Hemoglobin (Bld) [Mass/Vol] 14.3 g/dL Normal 13.0-17.0 [facility] Comment on above: Performed By: #### C BCA, CMP, 5643-2, 3298-7, 4024-6, THYR #### [facility] ([id number]) [address] [place] [address] 79412 Lymphocytes (Bld) [#/Vol] 1.8 10*3/uL Normal 1.0-3.5 [facility] Comment on above: Performed By: #### C BCA, [facility], 5643-2, 3298-7, 4024-6, THYR #### [facility] ([id number]) [address] [place] [address] 27468 Lymphocytes/100 WBC (Bld) 33.3 % Normal [facility] Comment on above: Performed By: #### C BCA, [facility], 5643-2, 3298-7, 4024-6, THYR #### [facility] ([id number]) [address] [place] [address]321 MCH (RBC) [Entitic mass] 24.7 pg Low 27-34 [facility] Comment on above: Performed By: #### C BCA, [facility], 5643-2, 3298-7, 4024-6, THYR #### [facility] ([id number]) [address] [place] [address] 11397 MCHC (RBC) [Mass/Vol] 33.4 g/dL Normal 32-36 [facility] Comment on above: Performed By: #### C BCA, CMP, 5643-2, 3298-7, 4024-6, THYR #### [facility] ([id number]) [address] [place] [address] 31064 MCV (RBC) [Entitic vol] 74 fL Low 80-100 [facility] Comment on above: Performed By: #### C BCA, CMP, 5643-2, 3298-7, 4024-6, THYR #### [facility] ([id number]) [address] [place] [address], [place] [address] Monocytes (Bld) [#/Vol] 0.4 10*3/uL Normal 0-0.9 [facility] Comment on above: Performed By: #### C OWEN BUTLER, 5643-2, 3298-7, 4024-6, THYR #### [facility] ([id number]) [address] [place] [address]39 Monocytes/100 WBC (Bld) 6.9 % Normal [facility] Comment on above: Performed By: #### Emily BUTLER CMP, 5643-2, 3298-7, 4024-6, THYR #### [facility] ([id number]) [address] [place] [address] 35952 Neutrophils/100 WBC (Bld) 57.4 % Normal [facility] Comment on above: Performed By: #### Emily BUTLER [facility], 43-2, 3298-7, 4024-6, THYR #### [facility] ([id number]) [address] [place] [address] 86993 Platelet mean volume (Bld) [Entitic vol] 7.8 fL Normal 7-12 [facility] Comment on above: Performed By: #### Emily BUTLER CMP, 5643-2, 3298-7, 4024-6, THYR #### [facility] ([id number]) [address] [place] [address] 88449 Platelets (Bld) [#/Vol] 174 10*3/uL Normal 150-450 [facility] Comment on above: Performed By: #### Emily BUTLER CMP, 5643-2, 3298-7, 4024-6, THYR #### [facility] ([id number]) [address] [place] [address] 33070 RBC COUNT 5.77 X10E12/L High 4.10-5.70 [facility] Comment on above: Performed By: #### C BCA, CMP, 5643-2, 3298-7, 4024-6, THYR #### [facility] ([id number]) [address] [place] [address] 09093 WBC (Bld) [#/Vol] 5.4 10*3/uL Normal 4.0-11.0 [facility] Comment on above: Performed By: #### C BCA, CMP, 5643-2, 3298-7, 4024-6, THYR #### [facility] ([id number]) [address] [place] [address] 97229 COMPREHENSIVE METABOLIC PANE Jatin 06-24-2024 Albumin [Mass/Vol] 4.0 g/dL Normal 3.2-5.3 [facility] Comment on above: Performed By: #### C BCA, CMP, 5643-2, 3298-7, 4024-6, THYR #### [facility] ([id number]) [address] [place] [address] 33614 ALP [Catalytic activity/Vol] 65 U/L Normal 39-130 [facility] Comment on above: Performed By: #### C BCA, CMP, 5643-2, 3298-7, 4024-6, THYR #### [facility] ([id number]) [address] [place] [address] 18255 ALT [Catalytic activity/Vol] 17 U/L Normal 0-40 [facility] Comment on above: Performed By: #### C BCA, CMP, 5643-2, 3298-7, 4024-6, THYR #### [facility] ([id number]) [address] [place] [address] 86559 Anion gap [Moles/Vol] 8 mmol/L Normal 5-15 [facility] Comment on above: Performed By: #### C BCA, CMP, 5643-2, 3298-7, 4024-6, THYR #### [facility] ([id number]) [address] [place] [address] 61407 AST [Catalytic activity/Vol] 17 U/L Normal 0-41 [facility] Comment on above: Performed By: #### C BCA, CMP, 5643-2, 3298-7, 4024-6, THYR #### [facility] ([id number]) [address] [place] [address] 89063 Bilirubin [Mass/Vol] 0.7 mg/dL Normal 0.3-1.2 [facility] Comment on above: Performed By: #### C BCA, CMP, 5643-2, 3298-7, 4024-6, THYR #### [facility] ([id number]) [address] [place] [address] 89705 Calcium [Mass/Vol] 8.9 mg/dL Normal 8.5-10.5 [facility] Comment on above: Performed By: #### C BCA, CMP, 5643-2, 3298-7, 4024-6, THYR #### [facility] ([id number]) [address] [place] [address] 32687 Chloride [Moles/Vol] 106 mmol/L Normal 98-109 [facility] Comment on above: Performed By: #### C BCA, CMP, 5643-2, 3298-7, 4024-6, THYR #### [facility] ([id number]) [address] [place] [address] 21252 CO2 [Moles/Vol] 24 mmol/L Normal 22-32 [facility] Comment on above: Performed By: #### C BCA, CMP, 5643-2, 3298-7, 4024-6, THYR #### [facility] ([id number]) [address] [place] [address] 46145 Creatinine [Mass/Vol] 0.88 mg/dL Normal 0.70-1.20 [facility] Comment on above: Result Comment: METH OD TRACEABLE TO IDMS STANDARD Performed By: #### C CARRIE, OWEN, 5643-2, 3298-7, 4024-6, THYR #### [facility] ([id number]) [address] [place] [address] 80062 eGFR (CKD-EPI) NON-RACE DEPENDENT >90 Normal >59 [facility] Comment on above: Result Comment: Reported eGFR is based on the CKD-EPI 2020 equation that does not use a race coefficient. Performed By: #### C CARRIE, OWEN, 5643-2, 3298-7, 4024-6, THYR #### [facility] ([id number]) [address] [place] [address] 72161 Glucose [Mass/Vol] 105 mg/dL High 65-99 [facility] Comment on above: Performed By: #### C OWEN BUTLER, 5643-2, 3298-7, 4024-6, THYR #### [facility] ([id number]) [address] [place] [address] 88523 Potassium [Moles/Vol] 3.9 mmol/L Normal 3.5-5.0 [facility] Comment on above: Performed By: #### C OWEN BUTLER, 5643-2, 3298-7, 4024-6, THYR #### [facility] ([id number]) [address] [place] [address] 52140 Protein [Mass/Vol] 6.9 g/dL Normal 6.0-8.0 [facility] Comment on above: Performed By: #### C OWEN BUTLER, 5643-2, 3298-7, 4024-6, THYR #### [facility] ([id number]) [address] [place] [address] 70346 Sodium [Moles/Vol] 138 mmol/L Normal 134-146 [facility] Comment on above: Performed By: #### C BCA, CMP, 5643-2, 3298-7, 4024-6, THYR #### [facility] ([id number]) [address] [place] [address] 21120 Urea nitrogen [Mass/Vol] 20 mg/dL Normal 5-23 [facility] Comment on above: Performed By: #### C BCA, CMP, 5643-2, 3298-7, 4024-6, THYR #### [facility] ([id number]) [address] [place] [address] 98681 DRUG SCREEN, URINEon 025 AMPHETAMINE/METHAMP Negative Normal NEG [facility] Comment on above: Result Comment: AMPH /METH screening cut off = 1000 ng/mL Performed By: #### D FAGAN #### [facility] ([id number]) [address] [place] [address] 55222 BARBITURATES Negative Normal NEG [facility] Comment on above: Result Comment: Izabel iturates screening cut off value = 200 ng/mL Performed By: #### D FAGAN #### [facility] ([id number]) [address] [place] [address] 42696 BENZODIAZEPINES Negative Normal NEG [facility] Comment on above: Result Comment: Skyler odiazepines screening cut off value = 200 ng/mL Performed By: #### D FAGAN #### [facility] ([id number]) [address] [place] [address] 48918 CANNABINOIDS Negative Normal NEG [facility] Comment on above: Result Comment: Sabina abinoids/THC screening cut off value = 50 ng/mL Performed By: #### D FAGAN #### [facility] ([id number]) [address] [place] [address] 86541 COCAINE METABOLITE Negative Normal NEG [facility] Comment on above: Result Comment: Coca ine screening cut off value = 300 ng/mL Performed By: #### D FAGAN #### [facility] ([id number]) [address] [place] [address] 76446 ECSTASY Negative Normal NEG [facility] Comment on above: Result Comment: Ecst asy screening cut off value = 500 ng/mL This report is intended for use in clinical monitoring or management of patients. Performed By: #### D FAGAN #### [facility] ([id number]) [address] [place] [address] 69476 METHADONE Negative Normal NEG [facility] Comment on above: Result Comment: Meth adone screening cut off value = 300 ng/mL. Performed By: #### D FAGAN #### [facility] ([id number]) [address] [place] [address] 95834 OPIATES Negative Normal NEG [facility] Comment on above: Result Comment: Opia ann screening cut off value = 300 ng/mL NOTE: This test is used for the detection of codeine, hydrocodone (>1000 ng/mL), morphine and hydromorphone (>900 ng/mL) in urine. Performed By: #### D FAGAN #### [facility] ([id number]) [address] [place] [address] 02252 OXYCODONE Negative Normal NEG [facility] Comment on above: Result Comment: Oxyc odone screening cut off value = 300 ng/mL NOTE: This test is used for the detection of oxycodone and oxymorphone in urine. Performed By: #### D FAGAN #### [facility] ([id number]) [address] [place] [address] 73818 PHENCYCLIDINE Negative Normal NEG [facility] Comment on above: Result Comment: Phen cyclidine screening cut off value = 25 ng/mL Performed By: #### D FAGAN #### [facility] ([id number]) [address] [place] [address] 37941 ETHANOLon 06-24-2024 Ethanol [Mass/Vol] mg/dL Normal 0.00-0.08 [facility] Comment on above: Result Comment: This report is intended for use in clinical monitoring or management of patients. Performed By: #### C CARRIE, OWEN, 5643-2, 3298-7, 4024-6, THYR #### [facility] ([id number]) [address] [place] [address] 76262 Salicylates [Mass/Vol]on SALICYLATE <4.0 Normal 2.0-25.0 [facility] Comment on above: Result Comment: Refe rence ranges are for therapeutic limits. Performed By: #### C CARRIE, OWEN, 5643-2, 3298-7, 4024-6, THYR #### [facility] ([id number]) [address] [place] [address] 29818 THYROID PROFILEon 06-24-2024 Free T4 [Mass/Vol] 0.92 ng/dL Normal 0.61-1.60 [facility] Comment on above: Performed By: #### C CARRIE, CMP, 5643-2, 3298-7, 4024-6, THYR #### [facility] ([id number]) [address] [place] [address] 91927 TSH 4.19 uIU/mL Normal 0.49-4.67 [facility] Comment on above: Performed By: #### C CARRIE, OWEN, 5643-2, 3298-7, 4024-6, THYR #### [facility] ([id number]) [address] [place] [address], [place] [address] URN MACROSCOPIC NURon 2024 BILIRUBIN IRMA Negative Normal NEG [facility] Comment on above: Performed By: #### N UM #### [facility] ([id number]) [address] [place] [address], [place] [address] BLOOD/HGB IRMA Negative Normal NEG [facility] Comment on above: Performed By: #### N UM #### [facility] ([id number]) [address] [place] [address] [place] [address] GLUCOSE IRMA Negative Normal NEG [facility] Comment on above: Performed By: #### N UM #### [facility] ([id number]) [address] [place] [address] [place] [address] KETONES IRMA Negative Normal NEG [facility] Comment on above: Performed By: #### N UM #### [facility] ([id number]) [address] [place] [address] 34773 LEUKOCYTE ESTERASE IRMA Negative Normal NEG [facility] Comment on above: Performed By: #### N UM #### [facility] ([id number]) [address] [place] [address] 12594 NITRITE IRMA Negative Normal NEG [facility] Comment on above: Performed By: #### N UM #### [facility] ([id number]) [address] [place] [address] 84315 PH IRMA 7.5 Normal 5.0-8.5 [facility] Comment on above: Performed By: #### N UM #### [facility] ([id number]) [address] [place] [address] 90304 PROTEIN IRMA Negative Normal NEG [facility] Comment on above: Performed By: #### N UM #### [facility] ([id number]) [address] [place] [address] [place] [address] SPECIFIC GRAVITY IRMA 1.015 Normal 1.003-1.035 [facility] Comment on above: Performed By: #### N UM #### [facility] ([id number]) [address] [place] [address] [place] [address] UROBILINOGEN IRMA 0.2 eu/dL Normal <1.1 [facility] Comment on above: Performed By: #### N UM #### [facility] ([id number]) [address] [place] [address], [place] [address] BMPon 06-21-2024 Anion gap [Moles/Vol] 11 mmol/L Normal 6-16 [facility] Comment on above: Performed By: #### 2 [id number] #### [facility] [address] [place] [address] Calcium [Mass/Vol] 9.0 mg/dL Normal 8.9-11.1 [facility] Comment on above: Performed By: #### 2 034870 #### [facility] [address] [place] [address] Chloride [Moles/Vol] 102 mmol/L Normal 101-111 [facility] Comment on above: Performed By: #### 2 [id number] #### [facility] [address] [place] [address] CO2 [Moles/Vol] 30 mmol/L Normal 21-31 [facility] Comment on above: Performed By: #### 2 [id number] #### [facility] [address] [place] [address] Creatinine [Mass/Vol] 0.9 mg/dL Normal 0.5-1.3 [facility] Comment on above: Performed By: #### 2 281042 #### [facility] [address] [place] [address] Glucose [Mass/Vol] 108 mg/dL Normal 55-199 [facility] Comment on above: Performed By: #### 2 298576 #### [facility] [address] [place] [address] Potassium [Moles/Vol] 3.9 mmol/L Normal 3.5-5.3 [facility] Comment on above: Performed By: #### 2 648026 #### [facility] [address] [place] [address] Sodium [Moles/Vol] 139 mmol/L Normal 135-145 [facility] Comment on above: Performed By: #### 2 252215 #### [facility] [address] [place] [address] Urea nitrogen [Mass/Vol] 12 mg/dL Normal 5-21 [facility] Comment on above: Performed By: #### 2 [id number] #### [facility] [address] [place] [address] 82450 Urea nitrogen/Creatinine [Mass ratio] 13 No Units Normal 10-20 [facility] Comment on above: Performed By: #### 2 278519 #### [facility] [address] [place] [address] CBC w/ Auto Diffon 5 Basophils/100 WBC (Bld) 0.6 % Normal 0.0-2.0 [facility] Comment on above: Performed By: #### 2 487761 #### [facility] [address] [place] [address] 96004 Basophils/Leukocytes Auto (Bld) [Pure # fraction] 0.0 E9/L Normal 0.0-0.2 [facility] Comment on above: Performed By: #### 2 246969 #### [facility] [address] [place] [address] 82528 Eosinophils (Bld) [#/Vol] 0.0 E9/L Normal 0.0-0.5 [facility] Comment on above: Performed By: #### 2 323233 #### [facility] [address] [place] [address] 00752 Eosinophils/100 WBC (Bld) 0.6 % Normal 0.0-8.0 [facility] Comment on above: Performed By: #### 2 [id number] #### [facility] [address] [place] [address] 44592 Erythrocyte distribution width (RBC) [Ratio] 15.6 % High 10.9-14.2 [facility] Comment on above: Performed By: #### 2 322583 #### [facility] [address] [place] [address] 50720 Hematocrit (Bld) [Volume fraction] 45.0 % Normal 37.7-49.0 [facility] Comment on above: Performed By: #### 2 610932 #### [facility] [address] [place] [address] Hemoglobin (Bld) [Mass/Vol] 14.7 g/dL Normal 13.5-17.5 [facility] Comment on above: Performed By: #### 2 105690 #### [facility] [address] [place] [address] Hypochromia Auto Ql (Bld) PRESENT Invalid Interpretation Code [facility] Comment on above: Performed By: #### 2 031457 #### [facility] [address] [place] [address] Lymphocytes (Bld) [#/Vol] 1.1 E9/L Normal 1.0-4.0 [facility] Comment on above: Performed By: #### 2 365275 #### [facility] [address] [place] [address] Lymphocytes/100 WBC (Bld) 23.5 % Normal 14.0-50.0 [facility] Comment on above: Performed By: #### 2 366178 #### [facility] [address] [place] [address] MCH (RBC) [Entitic mass] 24.7 pg Low 27.0-34.0 [facility] Comment on above: Performed By: #### 2 482289 #### [facility] [address] [place] [address] MCHC (RBC) [Mass/Vol] 32.7 g/dL Normal 31.4-36.0 [facility] Comment on above: Performed By: #### 2 763835 #### [facility] [address] [place] [address] MCV (RBC) [Entitic vol] 75.5 fL Low 80.0-100.0 [facility] Comment on above: Performed By: #### 2 435705 #### [facility] [address] [place] [address] Monocytes (Bld) [#/Vol] 0.2 E9/L Normal 0.2-1.0 [facility] Comment on above: Performed By: #### 2 624556 #### [facility] [address] [place] [address] Neutrophils (Bld) [#/Vol] 3.3 E9/L Normal 2.0-7.5 [facility] Comment on above: Performed By: #### 2 057874 #### [facility] [address] [place] [address] Neutrophils/100 WBC (Bld) 70.5 % Normal 36.0-75.0 [facility] Comment on above: Performed By: #### 2 707439 #### [facility] [address] [place] [address] 12387 Platelet mean volume (Bld) [Entitic vol] 8.5 fL Normal 6.4-10.8 [facility] Comment on above: Performed By: #### 2 567779 #### [facility] [address] [place] [address] 82878 Platelets (Bld) [#/Vol] 167.0 E9/L Normal 150.0-500.0 [facility] Comment on above: Performed By: #### 2 998943 #### [facility] [address] [place] [address] 12787 RBC (Bld) [#/Vol] 6.0 E12/L High 4.3-5.9 [facility] Comment on above: Performed By: #### 2 933305 #### [facility] [address] [place] [address] 04687 RBC size Nom (Bld) SEE MORPHOLOGY Invalid Interpretation Code [facility] Comment on above: Performed By: #### 2 [id number] #### [facility] [address] [place] [address] 77171 WBC corrected for nucl RBC Auto (Bld) [#/Vol] 4.6 E9/L Normal 4.0-11.0 [facility] Comment on above: Performed By: #### 2 643126 #### [facility] [address] [place] [address] 80211 CHEMISTRYOrdered By: SYSTEM SYSTEM on 06-21-2024 Anion gap [Moles/Vol] 11 mmol/L Normal 6 - 16 mEq/L [facility] Calcium [Mass/Vol] 9.0 mg/dL Normal 8.9 - 11. 1 mg/dL [facility] Chloride [Moles/Vol] 102 mmol/L Normal 101 - 1 11 mmol/L [facility] CO2 [Moles/Vol] 30 mmol/L Normal 21 - 31 mmol/L [facility] Creatinine [Mass/Vol] 0.9 mg/dL Normal 0.5 - 1.3 mg/dL [facility] eGFR 98 mL/min/1.73 m2 Normal >=59mL/min / 1.73 m2 [facility] Glucose [Mass/Vol] 108 mg/dL Normal 55 - 199 mg/dL [facility] Potassium [Moles/Vol] 3.9 mmol/L Normal 3.5 [...] Coag (PPP) [Time] 30.4 second(s) Normal 25.1-36.5 [facility] Comment on above: Result Comment: [...] - 109.0 sec. Performed By: #### 1 [id number] #### [facility] [address] [place] [address] INR Coag (PPP) [Relative time] 1.02 {INR} Invalid Interpretation Code [facility] Comment on above: Result Comment: INR results are specifically intended to assess patients stabilized on long-term Anticoagulation therapy suggested INR???s ???Less Intensive Anticoagulation??? 2.0 ??? 3.0 Conventional Range 3.0 ??? 4.5 Performed By: #### 1 [id number] #### [facility] [address] [place] [address] PT Coag (PPP) [Time] 11.4 second(s) Normal 9.4-12.5 [facility] Comment on above: Result Comment: [...] no normal ranges. Performed By: #### 1 [id number] #### [facility] [address] [place] [address] UA with Cult Rflxon 06-21-19 25 Bilirubin Ql (U) Negative Normal Negative [facility] Comment on above: Performed By: #### 4 [id number] #### [facility] [address] [place] [address] Clarity (U) Clear Normal Clear [facility] Comment on above: Performed By: #### 4 [id number] #### [facility] [address] [place] [address] Color (U) Colorless Abnormal Yellow [facility] Comment on above: Result Comment: Micr oscopic readings are only performed on those samples that meet specific criteria set forth by [facility]. Performed By: #### 4 [id number] #### [facility] [address] [place] [address] Glucose Ql (U) Negative Normal Negative [facility] Comment on above: Performed By: #### 4 [id number] #### [facility] [address] [place] [address] Hemoglobin Auto test strip (U) [Mass/Vol] Negative Normal Negative [facility] Comment on above: Performed By: #### 4 [id number] #### [facility] [address] [place] [address] Ketones Auto test strip Ql (U) Negative Normal Negative [facility] Comment on above: Performed By: #### 4 [id number] #### [facility] [address] [place] [address] Leukocyte esterase Auto test strip Ql (U) Negative Normal Negative [facility] Comment on above: Performed By: #### 4 [id number] #### [facility] [address] [place] [address] Nitrite Auto test strip Ql (U) Negative Normal Negative [facility] Comment on above: Performed By: #### 4 [id number] #### [facility] [address] [place] [address] pH (U) 7.0 [pH] Invalid Interpretation Code 5.0-9.0 [facility] Comment on above: Performed By: #### 4 [id number] #### [facility] [address] [place] [address] Protein Ql (U) Negative Normal Negative [facility] Comment on above: Performed By: #### 4 [id number] #### [facility] [address] [place] [address] Specific gravity (U) [Rel density] 1.005 Invalid Interpretation Code 1.005-1.030 [facility] Comment on above: Performed By: #### 4 [id number] #### [facility] [address] [place] [address]35[address] Urobilinogen (U) [Mass/Vol] Negative Normal Negative [facility] Comment on above: Performed By: #### 4 [id number] #### [facility] [address] [place] [address] Type of Urine collection method Clean Catch Normal [facility] Comment on above: Performed By: #### 4 [id number] #### [facility] [address] [place] [address] URINALYSISOrdered By: SYSTEM SYSTEM on 06-21-2024 Bilirubin Ql (U) Negative Normal Negativemg/ dL [facility] UA [...] that meet specific criteria set forth by [facility]. Glucose Ql (U) Negative Normal Negativemg/ dL FT UA Auto SS Hemoglobin Auto test strip (U) [Mass/Vol] Negative Normal Negativemg/ dL FT UA Auto SS Ketones Auto test strip Ql (U) Negative Normal Negativemg/ dL FT UA Auto SS Leukocyte esterase Auto test strip Ql (U) Negative Normal NegativeLeu /uL FT UA Auto SS Nitrite Auto test strip Ql (U) Negative Normal Negativemg/ dL FT UA Auto SS pH (U) 7.0 *NA* (06/21/24 11:04 AM) Invalid Interpretation Code 5.0 - 9.0 [facility] UA Auto SS Protein Ql (U) Negative Normal Negativemg/ dL [facility] UA Auto SS Specific gravity (U) [Rel density] 1.005 *NA* (06/21/24 11:04 AM) Invalid Interpretation Code 1.005 - 1.030 [facility] UA Auto SS Urobilinogen (U) [Mass/Vol] Negative Normal Negativemg/ dL [facility] UA [...] mGy = na DAP = na Normal [facility] eGFRon 06-21-2024 eGFR 98 mL/min/1.73 m2 Normal >=59 [facility] Comment on above: Performed By: #### 1 [id number] #### [facility] [address] [place] [address] Provider Letteron 04-18-2024 Provider Letter Provider Letter April 18, 2024 NOÉ JEFFERY [address] [place] [id number] : 1965 Dear, I am corresponding with [...] Office Sincerely, Dr. Danni [facility] [address] [place] [address]. [place] [id number] Normal [facility] ISTAT XRay CREon 03-15-2024 ISTAT GFR > 60.0 Normal [facility] Comment on above: Result Comment: PERF ORMED BY: [place] [address] PATHOLOGIST CORRECTIONAL LIEUTENANT NALDO SALDIVAR M.D. Performed By: #### I SCRE #### [address] MR prostate wo/w conon 03-15 MR prostate wo/w con [facility] [place] [address] [place] [address] MRI Report Signed Patient: Noé Jeffery MR#: [id number] 89 : 1965 Acct:[id number] Age/Sex: 58 / M ADM Date: 03/15/24 Loc: MR Room: Type: [facility] Attending Dr: Danni Graham MD Copies [...] recommended. Impression dictated by: Esdras Anne Jr., Brittany03/15/2024 3:05 PM Dictation Location: [place] [address] Transcribed By: [facility] 03/15/24 1505 Dictated By: Esdras Anne Jr, DO 03/15/24 1501 Signed By: 03/15/24 1505 Normal [facility] No Panel InformationOrdered By: Danni Grhaam on 03-15-2024 Bedside Estimated GFR (eGFR) > 60.0 [facility] Whole blood creatinine measu rementOrdered By: Danni Graham on 03-15-2024 Creatinine [Mass/Vol] 1.0 mg/dL Normal 0.6-1.3 [facility] Comment on above: ER/ESD physician is notified/shown all ISTAT results.Critical values may be confirmed by laboratory testing ifdeemed necessary by ER attending doctor. Result Comment: ER/E SD physician is notified/shown all ISTAT results. Critical values may be confirmed by laboratory testing if deemed necessary by ER attending doctor. Performed By: #### I SCRE #### [facility] [address] RITO by IFAon 10-25-2022 Antinuclear Antibodies, IFA Negative Normal [facility] Comment on above: Result Comment: Nega tive <1:80 Borderline 1:80 Positive >1:80 ICAP nomenclature: AC-0 For more information about Hep-2 cell patterns use ANApatterns.org, the official website for the International Consensus on Antinuclear Antibody (RITO) Patterns (ICAP). Performed By: #### T 7, TSH, CMP, LISANDRA, LIPA, LIPID #### [facility] [address] [place] [address] Dr. Janell Marquez ANTISTREPTOLYSIN O AB (ASO)o n 10-22-2022 Antistreptolysin O Ab 45.9 IU/mL Normal 0.0-200.0 [facility] Comment on above: Performed By: #### A SOAB #### [facility] [address] [place] [address] Dr. Janell Marquez RHEUMATOID FACTORon 10-23-19 RA Latex Turbid. <10.0 Normal <14.0 [facility] Comment on above: Performed By: #### R F #### [facility] [address] [place] [address] Dr. Janell Marquez CBC AUTO DIFFon 10-21-2022 BASO # 0.0 103/ul Normal 0.0-0.1 [facility] Comment on above: Performed By: #### T 7, TSH, CMP, LISANDRA, LIPA, LIPID #### [facility] Laboratory [address] [place] [address] Dr. Janell Marquez Basophils/100 WBC (Bld) 0.4 % Normal 0.2-2.0 [facility] Comment on above: Performed By: #### T 7, TSH, CMP, LISANDRA, LIPA, LIPID #### [facility] Laboratory [address] [place] [address] Dr. Janell Marquez EO # 0.0 103/ul Normal 0.0-0.7 [facility] Comment on above: Performed By: #### T 7, TSH, CMP, LISANDRA, LIPA, LIPID #### [facility] Laboratory [address] [address] [address] Janell Marquez Eosinophils/100 WBC (Bld) 0.7 % Critically low 0.9-7.0 [facility] Comment on above: Performed By: #### T 7, TSH, CMP, LISANDRA, LIPA, LIPID #### [facility] Laboratory [address] [place] [address] Dr. Janell Marquez Erythrocyte distribution width (RBC) [Ratio] 16.1 % Critically high 11.0-15.0 [facility] Comment on above: Performed By: #### T 7, TSH, CMP, LISANDRA, LIPA, LIPID #### [facility] Laboratory [address] [place] [address] Dr. Janell Marquez Hematocrit (Bld) [Volume fraction] 48.8 % Normal 42.0-54.0 [facility] Comment on above: Performed By: #### T 7, TSH, CMP, LISANDRA, LIPA, LIPID #### [facility] Laboratory [address] [place] [address] Dr. Janell Marquez Hemoglobin (Bld) [Mass/Vol] 15.3 g/dL Normal 14.0-18.0 [facility] Comment on above: Performed By: #### T 7, TSH, CMP, LISANDRA, LIPA, LIPID #### [facility] Laboratory [address] [place] [address] Dr. Janell Marquez IG # 0.02 10e3/ul Normal 0.00-0.03 [facility] Comment on above: Performed By: #### T 7, TSH, CMP, LISANDRA, LIPA, LIPID #### [facility] Laboratory [address] [place] [address] Dr. Janell Marquez IG % 0.4 % Normal 0.0-0.5 [facility] Comment on above: Performed By: #### T 7, TSH, CMP, LISANDRA, LIPA, LIPID #### [facility] Laboratory [address] [place] [address] Dr. Janell Marquez LYMPH # 1.3 103/ul Normal 1.2-3.8 [facility] Comment on above: Performed By: #### T 7, TSH, CMP, LISANDRA, LIPA, LIPID #### [facility] Laboratory [address] [place] [address] Dr. Janell Marquez Lymphocytes/100 WBC (Bld) 29.0 % Normal 20.5-60.0 [facility] Comment on above: Performed By: #### T 7, TSH, CMP, LISANDRA, LIPA, LIPID #### [facility] Laboratory [address] [place] [address] Dr. Janell Marquez MANUAL DIFF REQ NO Normal [facility] Comment on above: Performed By: #### T 7, TSH, CMP, LISANDRA, LIPA, LIPID #### [facility] Laboratory [address] [place] [address] Dr. Janell Marquez MCH (RBC) [Entitic mass] 23.5 pg Critically low 25.9-34.0 [facility] Comment on above: Performed By: #### T 7, TSH, CMP, LISANDRA, LIPA, LIPID #### [facility] Laboratory [address] [place] [address] Dr. Janell Marquez MCHC (RBC) [Mass/Vol] 31.4 g/dL Normal 29.9-35.2 [facility] Comment on above: Performed By: #### T 7, TSH, CMP, LISANDRA, LIPA, LIPID #### [facility] Laboratory [address] [place] [address] Dr. Janell Marquez MCV (RBC) [Entitic vol] 74.8 fL Critically low 80.0-94.0 [facility] Comment on above: Performed By: #### T 7, TSH, CMP, LISANDRA, LIPA, LIPID #### [facility] Laboratory [address] [place] [address] Dr. Janell Marquez MONO # 0.3 103/ul Normal 0.3-0.8 [facility] Comment on above: Performed By: #### T 7, TSH, CMP, LISANDRA, LIPA, LIPID #### [facility] Laboratory [address] [place] [address] Dr. Janell Marquez Monocytes/100 WBC (Bld) 7.4 % Normal 1.7-12.0 [facility] Comment on above: Performed By: #### T 7, TSH, CMP, LISANDRA, LIPA, LIPID #### [facility] [address] [address] [address] Janell Marquez NEUT # 2.9 103/ul Normal 1.4-6.5 [facility] Comment on above: Performed By: #### T 7, TSH, CMP, LISANDRA, LIPA, LIPID #### [facility] [address] [address] [address] Janell Marquez Neutrophils/100 WBC (Bld) 62.1 % Normal 43.0-75.0 [facility] Comment on above: Performed By: #### T 7, TSH, CMP, LISANDRA, LIPA, LIPID #### [facility] [address] [address] [address] Janell Marquez Platelet mean volume (Bld) [Entitic vol] 9.3 fL Critically low 9.5-13.5 [facility] Comment on above: Performed By: #### T 7, TSH, CMP, LISANDRA, LIPA, LIPID #### [facility] [address] [address] [address] Janell Marquez PLT 203 103/ul Normal 150-450 [facility] Comment on above: Performed By: #### T 7, TSH, CMP, LISANDRA, LIPA, LIPID #### [facility] [address] [address] [address] Janell Marquez RBC 6.52 106/ul Critically high 4.70-6.10 [facility] Comment on above: Performed By: #### T 7, TSH, CMP, LISANDRA, LIPA, LIPID #### [facility] [address] [address] [address] Janell Marquez WBC 4.6 103/ul Normal 4.0-11.0 [facility] Comment on above: Performed By: #### T 7, TSH, CMP, LISANDRA, LIPA, LIPID #### [facility] [address] [address] [address] Janell Marquez CRPon 10-21-2022 CRP [Mass/Vol] mg/L Normal <=1.0 [facility] Comment on above: Performed By: #### T 7, TSH, CMP, LISANDRA, LIPA, LIPID #### [facility] [address] [address] [address] Janell Marquez SED RATE WESTERGRENon 2022 SED RATE 30 mm/hr Critically high <=20 [facility] Comment on above: Performed By: #### T 7, TSH, CMP, LISANDRA, LIPA, LIPID #### [facility] [address] [address] [address] Janell Marquez URIC ACID SERUMon 10-21-2022 Urate [Mass/Vol] 4.3 mg/dL Normal 3.5-7.2 [facility] Comment on above: Performed By: #### T 7, TSH, CMP, LISANDRA, LIPA, LIPID #### [facility] [address] [address] [address] Janell Marquez CSF MANUAL DIFFon 10-12-2022 Diff Total, CSF 57 cells counted [facility] Lymph%, CSF 91 % High 50 - 90 % [facility] Smith%, CSF 9 % Low 10 - 50 % [facility] ic Cell count panel (CSF)on Clarity (CSF) Clear Clear [facility] Clarity (Unsp spec) Not Indicated Clear [facility] Color (CSF) Colorless Colorless [facility]ifer Color (Spun CSF) Not Indicated Colorless [facility] CSF Tube Number Tube 1 [facility] RBC Manual cnt (CSF) [#/Vol] 3 cells/uL 0 - 5 cells/uL [facility] WBC Manual cnt (CSF) [#/Vol] 1 cells/uL 0 - 5 cells/uL [facility] GLUCOSE CSFon 10-12-2022 Glucose (CSF) [Mass/Vol] 57 mg/dL 40 - 70 mg/dL [facility] PROTEIN CSFon 10-12-2022 Protein (CSF) [Mass/Vol] 32 mg/dL 15 - 45 mg/dL [facility] TOURTELLOTTE BLOODon 10-12- 023 [facility] ic ALLIED HEALTHon 05-07-2022 ALLIED HEALTH HNO ID: [id number] Author: Nicole Girard carrot buncher Service: Radiology Author Type: Manager [facility] Hospice Type: Allied Health Filed: 05/07/2022 1:54 PM [...] DATA: Not applicable SIGNED BY: Nicole Huffman, carrot buncher May 07, 2022 1:31 PM [facility] MRI 3D POST PROCESSINGon MRI 3D POST PROCESSING * * *Final Report* * * DATE OF EXAM: May 07 2022 1:47PM [facility] 0280 - MRI 3D POST PROCESSING / PROCEDURE REASON: Cognitive changes * * * * Physician Interpretation * * * * EXAMINATION: MRI BRAIN WO IVCON, MRI 3D POST PROCESSING CLINICAL HISTORY: Cognitive changes TECHNIQUE: Axial FLORIDALMA FLAIR, FLORIDALMA T2, diffusion and susceptibility weighted imaging without contrast, using the ADNI dementia protocol and 3-D post-processing using the POS on CLOUD software at an independent workstation with concurrent [...] = Focal Lesions 2 = Beginning of [place] 3 = Diffuse Involvement of Entire Region [...] results from the analysis charts for details. Internet Cafe Manager: MARISELA Transcribe Date/Time: May 07 2022 2:51P Dictated by : MANISH PRICE MD This examination was interpreted and the report reviewed and electronically signed by: MANISH PRICE MD on May 07 2022 3:06PM EST [id number] CN Normal [facility] MRI BRAIN WO IVCONon 022 MRI BRAIN WO IVCON * * *Final Report* * * DATE OF EXAM: May 07 2022 1:47PM [facility] 0294 - MRI BRAIN WO IVCON / PROCEDURE REASON: Cognitive changes * * * * Physician Interpretation * * * * EXAMINATION: MRI BRAIN WO IVCON, MRI 3D POST PROCESSING CLINICAL HISTORY: Cognitive changes TECHNIQUE: Axial FLORIDALMA FLAIR, FLORIDALMA T2, diffusion and susceptibility weighted imaging without contrast, using the ADNI dementia protocol and 3-D post-processing using the POS on CLOUD software at an independent workstation with concurrent [...] = Focal Lesions 2 = Beginning of [place] 3 = Diffuse Involvement of Entire Region [...] results from the analysis charts for details. Internet [employer] Manager: MARISELA Transcribe Date/Time: May 07 2022 2:51P Dictated by : MANISH PRICE MD This examination was interpreted and the report reviewed and electronically signed by: MANISH PRICE MD on May 07 2022 3:06PM EST [id number] CN Normal [facility] No Panel Informationon 05-07 [facility] MRI BRAIN WO W CONon 022 MRI [...] by: LUCIE TOWNSEND Date: 2022-01-21 17:28 Normal [facility] US CAROTID ART BILon 022 US CAROTID [...] by: LUCIE TOWNSEND Date: 2022-01-21 17:18 Normal [facility] H PYLORI ANTIBODY IGGon 12-19 H. PYLORI IGG ABS 0.72 Index Value Normal 0.00-0.79 [facility] Comment on above: Result Comment: Nega tive <0.80 Equivocal 0.80 - 0.89 Positive >0.89 Performed By: #### H PYLLC #### [facility] [address] [address] [address] Janell Marquez INSULINon 01-13-2022 Insulin 15.8 uIU/mL Normal 2.6-24.9 [facility] Comment on above: Performed By: #### T 7, TSH, CMP, LISANDRA, LIPA, LIPID #### [facility] [address] [address] [address] Janell Marquez VIT D 25-OH LABCORPon 2021 Vitamin D, 25-Hydroxy 29.7 ng/mL Critically low 30.0-100.0 [facility] Comment on above: Result Comment: Nelsy min D deficiency has been defined by the [place] of [employer] and an Endocrine Society practice guideline as a level of serum 25-OH vitamin D less than 20 ng/mL (1,2). The Endocrine Society went on to further define vitamin D insufficiency as a level between 21 and 29 ng/mL (2). 1. IOM ([place] of [employer]). 2010. Dietary reference intakes for calcium and D. [place]: The National Academies Press. 2. Kevin MF, Mey [place], Bharat SPENCER, et al. Evaluation, treatment, and prevention of vitamin D deficiency: an Endocrine Society clinical practice guideline. JCEM. 2010; 96(7):1911-30. Performed By: #### T 7, TSH, CMP, LISANDRA, LIPA, LIPID #### [facility] [address] [address] [address] Janell Marquez AMMONIAon 01-12-2022 Ammonia (P) [Mass/Vol] ug/dL Critically low 11-32 [facility] Comment on above: Performed By: #### T 7, TSH, CMP, LISANDRA, LIPA, LIPID #### [facility] [address] [address] [address] Janell Marquez AMYLASEon 01-12-2022 Amylase [Catalytic activity/Vol] 49 U/L Normal 25-115 [facility] Comment on above: Performed By: #### T 7, TSH, CMP, LISANDRA, LIPA, LIPID #### [facility] Laboratory [address] [place] [address] Dr. Janell Marquez CBC AUTO DIFFon 01-12-2022 BASO # 0.0 103/ul Normal 0.0-0.1 [facility] Comment on above: Performed By: #### T 7, TSH, CMP, LISANDRA, LIPA, LIPID #### [facility] Laboratory [address] [place] [address] Dr. Janell Marquez Basophils/100 WBC (Bld) 0.2 % Normal 0.2-2.0 [facility] Comment on above: Performed By: #### T 7, TSH, CMP, LISANDRA, LIPA, LIPID #### [facility] [address] [place] [address] Dr. Janell Marquez EO # 0.0 103/ul Normal 0.0-0.7 [facility] Comment on above: Performed By: #### T 7, TSH, CMP, LISANDRA, LIPA, LIPID #### [facility] [address] [place] [address] Dr. Janell Marquez Eosinophils/100 WBC (Bld) 0.3 % Critically low 0.9-7.0 [facility] Comment on above: Performed By: #### T 7, TSH, CMP, LISANDRA, LIPA, LIPID #### [facility] [address] [place] [address] Dr. Janell Marquez Erythrocyte distribution width (RBC) [Ratio] 16.0 % Critically high 11.0-15.0 [facility] Comment on above: Performed By: #### T 7, TSH, CMP, LISANDRA, LIPA, LIPID #### [facility] [address] [place] [address] Dr. Janell Marquez Hematocrit (Bld) [Volume fraction] 46.8 % Normal 42.0-54.0 [facility] Comment on above: Performed By: #### T 7, TSH, CMP, LISANDRA, LIPA, LIPID #### [facility] [address] [place] [address] Dr. Janell Marquez Hemoglobin (Bld) [Mass/Vol] 14.9 g/dL Normal 14.0-18.0 [facility] Comment on above: Performed By: #### T 7, TSH, CMP, LISANDRA, LIPA, LIPID #### [facility] [address] [address] [address] Janell Marquez IG # 0.01 10e3/ul Normal 0.00-0.03 [facility] Comment on above: Performed By: #### T 7, TSH, CMP, LISANDRA, LIPA, LIPID #### [facility] [address] [place] [address] Dr. Janell Marquez IG % 0.2 % Normal 0.0-0.5 [facility] Comment on above: Performed By: #### T 7, TSH, CMP, LISANDRA, LIPA, LIPID #### [facility] [address] [place] [address] Dr. Janell Marquez LYMPH # 1.0 103/ul Critically low 1.2-3.8 [facility] Comment on above: Performed By: #### T 7, TSH, CMP, LISANDRA, LIPA, LIPID #### [facility] [address] [place] [address] Dr. Janell Marquez Lymphocytes/100 WBC (Bld) 16.2 % Critically low 20.5-60.0 [facility] Comment on above: Performed By: #### T 7, TSH, CMP, LISANDRA, LIPA, LIPID #### [facility] [address] [place] [address] Dr. Janell Marquez MANUAL DIFF REQ NO Normal [facility] Comment on above: Performed By: #### T 7, TSH, CMP, LISANDRA, LIPA, LIPID #### [facility] [address] [place] [address] Dr. Janell Marquez MCH (RBC) [Entitic mass] 23.9 pg Critically low 25.9-34.0 [facility] Comment on above: Performed By: #### T 7, TSH, CMP, LISANDRA, LIPA, LIPID #### [facility] [address] [place] [address] Dr. Janell Marquez MCHC (RBC) [Mass/Vol] 31.8 g/dL Normal 29.9-35.2 [facility] Comment on above: Performed By: #### T 7, TSH, CMP, LISANDRA, LIPA, LIPID #### [facility] [address] [address] [address] Janell Marquez MCV (RBC) [Entitic vol] 75.0 fL Critically low 80.0-94.0 [facility] Comment on above: Performed By: #### T 7, TSH, CMP, LISANDRA, LIPA, LIPID #### [facility] [address] [place] [address] Dr. Janell Marquez MONO # 0.4 103/ul Normal 0.3-0.8 [facility] Comment on above: Performed By: #### T 7, TSH, CMP, LISANDRA, LIPA, LIPID #### [facility] [address] [place] [address] Dr. Janell Marquez Monocytes/100 WBC (Bld) 6.0 % Normal 1.7-12.0 [facility] Comment on above: Performed By: #### T 7, TSH, CMP, LISANDRA, LIPA, LIPID #### [facility] [address] [place] [address] Dr. Janell Marquez NEUT # 4.5 103/ul Normal 1.4-6.5 [facility] Comment on above: Performed By: #### T 7, TSH, CMP, LISANDRA, LIPA, LIPID #### [facility] [address] [place] [address] Dr. Janell Marquez Neutrophils/100 WBC (Bld) 77.1 % Critically high 43.0-75.0 [facility] Comment on above: Performed By: #### T 7, TSH, CMP, LISANDRA, LIPA, LIPID #### [facility] [address] [place] [address] Dr. Janell Marquez Platelet mean volume (Bld) [Entitic vol] 9.3 fL Critically low 9.5-13.5 [facility] Comment on above: Performed By: #### T 7, TSH, CMP, LISANDRA, LIPA, LIPID #### [facility] [address] [place] [address] Dr. Janell Marquez PLT 202 103/ul Normal 150-450 [facility] Comment on above: Performed By: #### T 7, TSH, CMP, LISANDRA, LIPA, LIPID #### [facility] [address] [place] [address] Dr. Janell Marquez RBC 6.24 106/ul Critically high 4.70-6.10 [facility] Comment on above: Performed By: #### T 7, TSH, CMP, LISANDRA, LIPA, LIPID #### [facility] [address] [address] [address] Janell Marquez WBC 5.9 103/ul Normal 4.0-11.0 [facility] Comment on above: Performed By: #### T 7, TSH, CMP, LISANDRA, LIPA, LIPID #### [facility] [address] [place] [address] Dr. Janell Marquez FREE THYROXINE INDEX T7on FTI 3.14 Normal 1.30-4.50 [facility] Comment on above: Performed By: #### T 7, TSH, CMP, LISANDRA, LIPA, LIPID #### [facility] [address] [place] [address] Dr. Janell Marquez T3U 32.0 % Critically low 33.0-40.0 [facility] Comment on above: Performed By: #### T 7, TSH, CMP, LISANDRA, LIPA, LIPID #### [facility] [address] [place] [address] Dr. Janell Marquez T4 [Mass/Vol] 9.80 ug/dL Normal 4.50-12.10 [facility] Comment on above: Performed By: #### T 7, TSH, CMP, LISANDRA, LIPA, LIPID #### [facility] [address] [place] [address] Dr. Janell Marquez GLYCOHEMOGLOBIN A1Con 2021 ADA RECOMMENDATION SEE BELOW Normal [facility] Comment on above: Result Comment: ADA RECOMMENDED LIMIT 4.0 - 6.0 ADA THERAPEUTIC TARGET < 7.0 ACTION SUGGESTED > 7.0 Performed By: #### A 1C #### [facility] [address] [place] [address] Dr. Janell Marquez Glucose [Mass/Vol] 120 mg/dL Normal [facility] Comment on above: Performed By: #### A 1C #### [facility] [address] [place] [address] Dr. Janell Marquez HbA1c (Bld) [Mass fraction] 5.8 % Normal 4.5-6.2 [facility] Comment on above: Performed By: #### A 1C #### [facility] [address] [place] [address] Dr. Janell Marquez IRONon 01-12-2022 Iron [Mass/Vol] 70.0 ug/dL Normal 65.0-175.0 [facility] Comment on above: Performed By: #### T 7, TSH, CMP, LISANDRA, LIPA, LIPID #### [facility] [address] [place] [address] Dr. Janell Marquez LIPASEon 01-12-2022 Lipase [Catalytic activity/Vol] 72.0 U/L Critically low 73.0-393.0 [facility] Comment on above: Performed By: #### T 7, TSH, CMP, LISANDRA, LIPA, LIPID #### [facility] [address] [place] [address] Dr. Janell Marquez LIPID PROFILEon 01-12-2022 CHOL-HDL RATIO NORM SEE BELOW Normal [facility] Comment on above: Result Comment: 3.3 - 4.4 LOW RISK 4.4 - 7.1 AVERAGE RISK 7.1 - 11.0 MODERATE RISK >11.0 HIGH RISK Performed By: #### T 7, TSH, CMP, LISANDRA, LIPA, LIPID #### [facility] [address] [place] [address] Dr. Janell Marquez Cholesterol [Mass/Vol] 220 mg/dL Critically high <=200 [facility] Comment on above: Performed By: #### T 7, TSH, CMP, LISANDRA, LIPA, LIPID #### [facility] [address] [place] [address] Dr. Janell Marquez Cholesterol in HDL [Mass/Vol] 47 mg/dL Normal 40-60 [facility] Comment on above: Performed By: #### T 7, TSH, CMP, LISANDRA, LIPA, LIPID #### [facility] [address] [address] [address] Janell Marquez Cholesterol in LDL [Mass/Vol] 157.4 mg/dL Normal [facility] Comment on above: Performed By: #### T 7, TSH, CMP, LISANDRA, LIPA, LIPID #### [facility] [address] [address] [address] Janell Marquez Cholesterol.total/Cho lesterol in HDL [Mass ratio] 4.7 {ratio} Normal [facility] Comment on above: Performed By: #### T 7, TSH, CMP, LISANDRA, LIPA, LIPID #### [facility] [address] [address] [address] Janell Marquez HDL NORMAL > or = 60 mg/dl - LOW CARDIOVASCULAR RISK <40 mg/dl - HIGH CARDIOVASCULAR RISK Normal [facility] Comment on above: Performed By: #### T 7, TSH, CMP, LISANDRA, LIPA, LIPID #### [facility] [address] [place] [address] Dr. Janell Marquez LDL CALC NORMAL SEE BELOW Normal [facility] Comment on above: Result Comment: <100 mg/dl OPTIMAL 100 - 129 mg/dl NEAR OR ABOVE OPTIMAL 130 - 159 mg/dl BORDERLINE HIGH 160 - 189 mg/dl HIGH >190 mg/dl VERY HIGH Performed By: #### T 7, TSH, CMP, LISANDRA, LIPA, LIPID #### [facility] [address] [address] [address] Janell Marquez Triglyceride [Mass/Vol] 78 mg/dL Normal <=150 [facility] Comment on above: Performed By: #### T 7, TSH, CMP, LISANDRA, LIPA, LIPID #### [facility] [address] [address] [address] Janell Marquez VLDL CALC 15.6 mg/dL Normal [facility] Comment on above: Performed By: #### T 7, TSH, CMP, LISANDRA, LIPA, LIPID #### [facility] [address] [address] [address] Janell Marquez PROF 14(COMP METB)on 022 Albumin [Mass/Vol] 3.5 g/dL Normal 3.4-5.0 [facility] Comment on above: Performed By: #### T 7, TSH, CMP, LISANDRA, LIPA, LIPID #### [facility] [address] [place] [address] Dr. Janell Marquez Albumin/Globulin [Mass ratio] 0.9 {ratio} Normal [facility] Comment on above: Performed By: #### T 7, TSH, CMP, LISANDRA, LIPA, LIPID #### [facility] [address] [place] [address] Dr. Janell Marquez ALP [Catalytic activity/Vol] 69 U/L Normal 46-116 [facility] Comment on above: Performed By: #### T 7, TSH, CMP, LISANDRA, LIPA, LIPID #### [facility] [address] [place] [address] Dr. Janell Marquez ALT [Catalytic activity/Vol] 19 U/L Normal 16-63 [facility] Comment on above: Performed By: #### T 7, TSH, CMP, LISANDRA, LIPA, LIPID #### [facility] [address] [place] [address] Dr. Janell Marquez Anion gap [Moles/Vol] 12.1 mmol/L Normal [facility] Comment on above: Performed By: #### T 7, TSH, CMP, LISANDRA, LIPA, LIPID #### [facility] [address] [place] [address] Dr. Janell Marquez AST [Catalytic activity/Vol] 15 U/L Normal 15-37 [facility] Comment on above: Performed By: #### T 7, TSH, CMP, LISANDRA, LIPA, LIPID #### [facility] [address] [place] [address] Dr. Janell Marquez Bilirubin [Mass/Vol] 0.8 mg/dL Normal 0.2-1.0 [facility] Comment on above: Performed By: #### T 7, TSH, CMP, LISANDRA, LIPA, LIPID #### [facility] [address] [place] [address] Dr. Janell Marquez Calcium [Mass/Vol] 8.5 mg/dL Normal 8.5-10.1 [facility] [facility] Comment on above: Performed By: #### T 7, TSH, CMP, LISANDRA, LIPA, LIPID #### [facility] [address] [address] [address] Janell Marquez Chloride [Moles/Vol] 105 mmol/L Normal 98-107 [facility] Comment on above: Performed By: #### T 7, TSH, CMP, LISANDRA, LIPA, LIPID #### [facility] [address] [address] [address] Janell Marquez CO2 [Moles/Vol] 28.0 mmol/L Normal 21.0-32.0 [facility] Comment on above: Performed By: #### T 7, TSH, CMP, LISANDRA, LIPA, LIPID #### [facility] [address] [address] [address] Janell Marquez Creatinine [Mass/Vol] 1.11 mg/dL Normal 0.70-1.30 [facility] Comment on above: Performed By: #### T 7, TSH, CMP, LISANDRA, LIPA, LIPID #### [facility] [address] [address] [address] Janell Marquez EGFR-AF BHUTANESE >60 Normal >=60 [facility] Comment on above: Performed By: #### T 7, TSH, CMP, LISANDRA, LIPA, LIPID #### [facility] [address] [address] [address] Janell Marquez EGFR-NON AF BHUTANESE >60 Normal >=60 [facility] Comment on above: Performed By: #### T 7, TSH, CMP, LISANDRA, LIPA, LIPID #### [facility] [address] [address] [address] Janell Marquez Globulin (S) [Mass/Vol] 3.7 g/dL Normal [facility] Comment on above: Performed By: #### T 7, TSH, CMP, LISANDRA, LIPA, LIPID #### [facility] [address] [address] [address] Janell Marquez Glucose [Mass/Vol] 115 mg/dL Critically high 74-106 [facility] Comment on above: Performed By: #### T 7, TSH, CMP, LISANDRA, LIPA, LIPID #### [facility] [address] [place] [address] Dr. Janell Marquez Potassium [Moles/Vol] 4.1 mmol/L Normal 3.5-5.1 [facility] Comment on above: Performed By: #### T 7, TSH, CMP, LISANDRA, LIPA, LIPID #### [facility] [address] [place] [address] Dr. Janell Marquez Protein [Mass/Vol] 7.2 g/dL Normal 6.4-8.2 [facility] Comment on above: Performed By: #### T 7, TSH, CMP, LISANDRA, LIPA, LIPID #### [facility] [address] [place] [address] Dr. Janell Marquez Sodium [Moles/Vol] 141 mmol/L Normal 136-145 [facility] Comment on above: Performed By: #### T 7, TSH, CMP, LISANDRA, LIPA, LIPID #### [facility] [address] [place] [address] Dr. Janell Marquez Urea nitrogen [Mass/Vol] 16.0 mg/dL Normal 7.0-18.0 [facility] Comment on above: Performed By: #### T 7, TSH, CMP, LISANDRA, LIPA, LIPID #### [facility] [address] [place] [address] Dr. Janell Marquez Urea nitrogen/Creatinine [Mass ratio] 14.4 mg/mg Normal [facility] Comment on above: Performed By: #### T 7, TSH, CMP, LISANDRA, LIPA, LIPID #### [facility] [address] [place] [address] Dr. Janell Marquez TSHon 01-12-2022 TSH 1.412 uIU/mL Normal 0.358-3.740 [facility] Comment on above: Performed By: #### T 7, TSH, CMP, LISANDRA, LIPA, LIPID #### [facility] [address] [place] [address] Dr. Janell Marquez VIT B12 AND FOLATEon Cobalamin (Vitamin B12) [Mass/Vol] 411.0 pg/mL Normal 193.0-986.0 [facility] Comment on above: Performed By: #### T 7, TSH, CMP, LISANDRA, LIPA, LIPID #### [facility] [address] [address] [address] Janell Marquez FOLATE 11.10 ng/mL Normal 8.60-58.90 [facility] Comment on above: Performed By: #### T 7, TSH, CMP, LISANDRA, LIPA, LIPID #### [facility] [address] [address] [address] Janell Marquez BASIC METABOLIC PANELon Calcium [Mass/Vol] 8.3 mg/dL Low 8.6-10.3 [facility] Comment on above: Order Comment: No: D o not add to previous draw Performed By: #### 0 0071 #### [facility] [address] [place] [address], [place] Chloride [Moles/Vol] 104 mmol/L Normal 98-107 [facility] Comment on above: Order Comment: No: D o not add to previous draw Performed By: #### 0 0071 #### [facility] [address] [place] [address], [place] CO2 [Moles/Vol] 29 mmol/L Normal 21-31 The [facility] Comment on above: Order Comment: No: D o not add to previous draw Performed By: #### 0 0071 #### [facility] [address] [place] [address], [place] Creatinine [Mass/Vol] 0.81 mg/dL Normal 0.70-1.30 [facility] Comment on above: Order Comment: No: D o not add to previous draw Performed By: #### 0 0071 #### [facility] [address] [place] [address], [place] GFR/1.73 sq M.predicted among blacks MDRD (S/P/Bld) [Vol rate/Area] mL/min/{1.73_m2} Normal >60 [facility] Comment on above: Order Comment: No: D o not add to previous draw Performed By: #### 0 0071 #### [facility] [address] [place] [address], [place] GFR/1.73 sq M.predicted among non-blacks MDRD (S/P/Bld) [Vol rate/Area] mL/min/{1.73_m2} Normal >60 [facility] Comment on above: Order Comment: No: D o not add to previous draw Performed By: #### 0 0071 #### [facility] [address] [place] [address], [place] Glucose [Mass/Vol] 144 mg/dL High 70-100 [facility]: Order Comment: No: D o not add to previous draw Performed By: #### 0 0071 #### [facility] [address] [place] [address], [place] Potassium [Moles/Vol] 3.6 mmol/L Normal 3.5-5.1 [facility] Comment on above: Order Comment: No: D o not add to previous draw Performed By: #### 0 0071 #### [facility] [address] [place] [address], [place] Sodium [Moles/Vol] 139 mmol/L Normal 136-145 [facility] Comment on above: Order Comment: No: D o not add to previous draw Performed By: #### 0 0071 #### [facility] [address] [place] [address], [place] Urea nitrogen [Mass/Vol] 9 mg/dL Normal 7-25 [facility] Comment on above: Order Comment: No: D o not add to previous draw Performed By: #### 0 0071 #### [facility] [address] CBC COMPLETE BLOOD COUNTon 0 07-26-2020 Erythrocyte distribution width (RBC) [Ratio] 14.6 % Normal 11.5-15.0 [facility] Comment on above: Order Comment: No: D o not add to previous draw Performed By: #### 0 0071 #### [facility] [address] [place] [address], [facility] Hematocrit (Bld) [Volume fraction] 38.8 % Low 39.0-50.0 [facility] Comment on above: Order Comment: No: D o not add to previous draw Performed By: #### 0 0071 #### [facility] [address] Hemoglobin (Bld) [Mass/Vol] 12.1 g/dL Low 13.0-17.0 [facility] Comment on above: Order Comment: No: D o not add to previous draw Performed By: #### 0 0071 #### [facility] [address] [place] [address], [facility] MCH (RBC) [Entitic mass] 23.7 pg Low 27.0-33.0 [facility] Comment on above: Order Comment: No: D o not add to previous draw Performed By: #### 0 0071 #### [facility] [address] [place] [address], [facility] MCHC (RBC) [Mass/Vol] 31.2 g/dL Low 32.0-35.0 [facility] Comment on above: Order Comment: No: D o not add to previous draw Performed By: #### 0 0071 #### [facility] [address] [place] [address], [facility] MCV (RBC) [Entitic vol] 75.9 fL Low 82.0-98.0 [facility] Comment on above: Order Comment: No: D o not add to previous draw Performed By: #### 0 0071 #### [facility] [address] [place] [address], [facility] Nucleated RBC/100 WBC (Bld) [Ratio] 0 % Normal 0-0 [facility] Comment on above: Order Comment: No: D o not add to previous draw Performed By: #### 0 0071 #### [facility] [address] [place] [address], [facility] PLAT CNT 182 10*3/uL Normal 150-400 [facility] Comment on above: Order Comment: No: D o not add to previous draw Performed By: #### 0 0071 #### [facility] [address] [facility] [address], [facility] RBC (Bld) [#/Vol] 5.11 10*6/uL Normal 4.20-5.70 The [facility] Comment on above: Order Comment: No: D o not add to previous draw Performed By: #### 0 0071 #### [facility] [address] [facility] [address], [facility] WBC (Bld) [#/Vol] 3.64 10*3/uL Low 4.00-10.60 [facility] Comment on above: Order Comment: No: D o not add to previous draw Performed By: #### 0 0071 #### [facility] [address] [facility] [place] [address], [facility] MAGNESIUM BLOODon 07-26-2020 Magnesium [Mass/Vol] 1.8 mg/dL Low 1.9-2.7 [facility] Comment on above: Order Comment: No: D o not add to previous draw Performed By: #### 1 0070, [id number] #### [facility] [address] [place] [address], [facility] BASIC METABOLIC PANELon Calcium [Mass/Vol] 8.4 mg/dL Low 8.6-10.3 [facility] Comment on above: Order Comment: No: D o not add to previous draw Performed By: #### 1 69, [id number] #### [facility] [address] [place] [address], [place] Chloride [Moles/Vol] 104 mmol/L Normal 98-107 [facility] Comment on above: Order Comment: No: D o not add to previous draw Performed By: #### 1 69, 04775 #### [facility] [address] [place] [address], [place] CO2 [Moles/Vol] 27 mmol/L Normal 21-31 The [facility] Comment on above: Order Comment: No: D o not add to previous draw Performed By: #### 1 69, [id number] #### [facility] [address] [place] [address], [place] Creatinine [Mass/Vol] 0.83 mg/dL Normal 0.70-1.30 [facility] Comment on above: Order Comment: No: D o not add to previous draw Performed By: #### 1 69, 18099 #### [facility] [address] [place] [address], [place] GFR/1.73 sq M.predicted among blacks MDRD (S/P/Bld) [Vol rate/Area] mL/min/{1.73_m2} Normal >60 [facility] Comment on above: Order Comment: No: D o not add to previous draw Performed By: #### 1 69, 72514 #### [facility] [address] [place] [address], [place] GFR/1.73 sq M.predicted among non-blacks MDRD (S/P/Bld) [Vol rate/Area] mL/min/{1.73_m2} Normal >60 [facility] Comment on above: Order Comment: No: D o not add to previous draw Performed By: #### 1 69, 12447 #### [facility] [address] [place] [address], [facility] Glucose [Mass/Vol] 162 mg/dL High 70-100 [facility] Comment on above: Order Comment: No: D o not add to previous draw Performed By: #### 1 69, 34843 #### [facility] [address] [place] [address], [facility] Potassium [Moles/Vol] 3.4 mmol/L Low 3.5-5.1 [facility] Comment on above: Order Comment: No: D o not add to previous draw Performed By: #### 1 69, 55549 #### [facility] [address] [place] [id number], [facility] Sodium [Moles/Vol] 137 mmol/L Normal 136-145 The [facility] Comment on above: Order Comment: No: D o not add to previous draw Performed By: #### 1 69, 70171 #### [facility] [address] [place] [id number], [facility] Urea nitrogen [Mass/Vol] 18 mg/dL Normal 7-25 [facility] Comment on above: Order Comment: No: D o not add to previous draw Performed By: #### 1 69, 92161 #### [facility] [address] [place] [id number], [facility] CBC COMPLETE BLOOD COUNTon 0 - Erythrocyte distribution width (RBC) [Ratio] 15.2 % High 11.5-15.0 [facility] Comment on above: Order Comment: No: D o not add to previous draw Performed By: #### 0 1 #### [facility] [address] [place] [address], [facility] Hematocrit (Bld) [Volume fraction] 40.7 % Normal 39.0-50.0 [facility] Comment on above: Order Comment: No: D o not add to previous draw Performed By: #### 0 0071 #### [facility] [address] [place] [address], [facility] Hemoglobin (Bld) [Mass/Vol] 12.7 g/dL Low 13.0-17.0 [facility] Comment on above: Order Comment: No: D o not add to previous draw Performed By: #### 0 0071 #### [facility] [address] [facility] [place] [address], [facility] MCH (RBC) [Entitic mass] 23.3 pg Low 27.0-33.0 [facility] Comment on above: Order Comment: No: D o not add to previous draw Performed By: #### 0 0071 #### [facility] [address] [place] [address], [facility] MCHC (RBC) [Mass/Vol] 31.2 g/dL Low 32.0-35.0 [facility] Comment on above: Order Comment: No: D o not add to previous draw Performed By: #### 0 0071 #### [facility] [address] [place] [address], [facility] MCV (RBC) [Entitic vol] 74.8 fL Low 82.0-98.0 [facility] Comment on above: Order Comment: No: D o not add to previous draw Performed By: #### 0 0071 #### [facility] [address] [place] [address], [facility] Nucleated RBC/100 WBC (Bld) [Ratio] 0 % Normal 0-0 [facility] Comment on above: Order Comment: No: D o not add to previous draw Performed By: #### 0 0071 #### [facility] [address] [place] [address], [facility] PLAT CNT 207 10*3/uL Normal 150-400 [facility] Comment on above: Order Comment: No: D o not add to previous draw Performed By: #### 0 0071 #### [facility] [address] [place] [address], [facility] RBC (Bld) [#/Vol] 5.44 10*6/uL Normal 4.20-5.70 The [facility] Comment on above: Order Comment: No: D o not add to previous draw Performed By: #### 0 0071 #### [facility] [address] WBC (Bld) [#/Vol] 3.05 10*3/uL Low 4.00-10.60 [facility] Comment on above: Order Comment: No: D o not add to previous draw Performed By: #### 0 0071 #### [facility] [address] [facility] [address] MAGNESIUM BLOODon 07-25-2020 Magnesium [Mass/Vol] 1.8 mg/dL Low 1.9-2.7 [facility] Comment on above: Order Comment: No: D o not add to previous draw Performed By: #### 1 0070, 55531 #### [facility] [address] [facility] [address] POC GLUCOSE LABon 07-25-2020 Glucose [Mass/Vol] 155 mg/dL High 70-100 The [facility] Comment on above: Performed By: #### 0 0071, [id number] #### [facility] [address] [facility]. [address] *SARS-CoV-2 COVID-19on 07-24 SARS-CoV-2 (COVID-19) RNA LILLIANA+probe Ql (Unsp spec) Not detected Normal Not Detected [facility] Comment on above: Order Comment: No: D o not add to previous draw Performed By: #### 0 0071, [id number] #### [facility] [address] CBC W/DIFFon 07-24-2020 ABS IMM GRANS 0.0 10*3/uL Normal 0.0-0.2 The [facility] Comment on above: Performed By: #### 0 0071 #### [facility] [address] [place] [address], [facility] ABS NEUTROPHILS 2.0 10*3/uL Normal 1.6-7.6 [facility] Comment on above: Performed By: #### 0 0071 #### [facility] [address] [place] [address], [facility] Basophils (Bld) [#/Vol] 0.0 10*3/uL Normal 0.0-0.2 [facility] Comment on above: Performed By: #### 0 0071 #### [facility] [address] [place] [address], [facility] Basophils/100 WBC (Bld) 0.4 % Normal 0.0-1.0 [facility] Comment on above: Performed By: #### 0 0071 #### [facility] [address] [place] [address], [facility] Eosinophils (Bld) [#/Vol] 0.0 10*3/uL Normal 0.0-0.5 [facility] Comment on above: Performed By: #### 0 0071 #### [facility] [address] [place] [address], [facility] Eosinophils/100 WBC (Bld) 0.7 % Normal 0.0-6.0 [facility] Comment on above: Performed By: #### 0 0071 #### [facility] [address] [place] [address], [facility] Erythrocyte distribution width (RBC) [Ratio] 15.8 % High 11.5-15.0 [facility] Comment on above: Performed By: #### 0 0071 #### [facility] [address] [place] [address], [facility] Hematocrit (Bld) [Volume fraction] 45.5 % Normal 39.0-50.0 [facility] Comment on above: Performed By: #### 0 0071 #### [facility] [address] [place] [address], [facility] Hemoglobin (Bld) [Mass/Vol] 14.4 g/dL Normal 13.0-17.0 [facility] Comment on above: Performed By: #### 0 0071 #### [facility] [address] [place] [address], [facility] IMMATURE GRANS 0.4 % Normal 0.0-1.0 The [facility] Comment on above: Performed By: #### 0 0071 #### [facility] [address] [place] [address], [facility] Lymphocytes (Bld) [#/Vol] 0.4 10*3/uL Low 1.2-4.0 [facility] Comment on above: Performed By: #### 0 0071 #### [facility] [address] Lymphocytes/100 WBC (Bld) 14.5 % Low 20.0-45.0 [facility] Comment on above: Performed By: #### 0 0071 #### [facility] [address] [place] [address], [facility] MCH (RBC) [Entitic mass] 23.7 pg Low 27.0-33.0 [facility] Comment on above: Performed By: #### 0 0071 #### [facility] [address] [place] [address], [facility] MCHC (RBC) [Mass/Vol] 31.6 g/dL Low 32.0-35.0 [facility] Comment on above: Performed By: #### 0 0071 #### [facility] [address] [place] [address], [facility] MCV (RBC) [Entitic vol] 75.0 fL Low 82.0-98.0 [facility] Comment on above: Performed By: #### 0 0071 #### [facility] [address] [facility] [place] [place] [address], [facility] Monocytes (Bld) [#/Vol] 0.3 10*3/uL Normal 0.1-1.0 [facility] Comment on above: Performed By: #### 0 0071 #### [facility] [address] [facility] [place] [address], [facility] MONOS 12.3 % High 5.0-12.0 [facility] Comment on above: Performed By: #### 0 0071 #### [facility] [address] [place] [address], [facility] Neutrophils/100 WBC (Bld) 71.7 % Normal 40.0-72.0 [facility] Comment on above: Performed By: #### 0 0071 #### [facility] [address] [place] [address], [facility] Nucleated RBC/100 WBC (Bld) [Ratio] 0 % Normal 0-0 [facility] Comment on above: Performed By: #### 0 0071 #### [facility] [address] [facility] [place] [address], [facility] PLAT CNT 225 10*3/uL Normal 150-400 [facility] Comment on above: Performed By: #### 0 0071 #### [facility] [address] [facility] [place] [address], [facility] RBC (Bld) [#/Vol] 6.07 10*6/uL High 4.20-5.70 [facility] Comment on above: Performed By: #### 0 0071 #### [facility] [address] [place] [address], [facility] WBC (Bld) [#/Vol] 2.76 10*3/uL Low 4.00-10.60 [facility] Comment on above: Performed By: #### 0 0071 #### [facility] [address] [place] [address], [place] COMP METABOLIC PANELon 07-24 Albumin [Mass/Vol] 3.7 g/dL Normal 3.5-5.7 The [facility] Comment on above: Performed By: #### 3 5200, 49976, 59095 #### [facility] [address] [place] [address], [place] ALKALINE PHOSPH 58 IU/L Normal 34-104 The [facility] Comment on above: Performed By: #### 3 5200, 45963, 41621 #### [facility] [address] [place] [address], [place] ALT [Catalytic activity/Vol] 12 U/L Normal 7-52 [facility] Comment on above: Performed By: #### 3 5200, 29939, 66549 #### [facility] [address] [place] [address], [place] AST [Catalytic activity/Vol] 15 U/L Normal 13-39 [facility] Comment on above: Performed By: #### 3 5200, 79452, 18148 #### [facility] [address] [place] [address], [place] Bilirubin [Mass/Vol] 1.3 mg/dL High 0.3-1.0 [facility] Comment on above: Performed By: #### 3 5200, 40638, 31284 #### [facility] [address] [place] [address], [place] Calcium [Mass/Vol] 8.7 mg/dL Normal 8.6-10.3 The [facility] Comment on above: Performed By: #### 3 5200, 65999, 52463 #### [facility] [address] [place] [address], [place] Chloride [Moles/Vol] 99 mmol/L Normal 98-107 [facility] Comment on above: Performed By: #### 3 5200, 62724, 87088 #### [facility] [address] [place] [address], [place] CO2 [Moles/Vol] 25 mmol/L Normal 21-31 [facility] Comment on above: Performed By: #### 3 5200, 90558, 68145 #### [facility] [address] [place] [address], [place] Creatinine [Mass/Vol] 1.01 mg/dL Normal 0.70-1.30 [facility] Comment on above: Performed By: #### 3 5200, 36451, 30376 #### [facility] [address] [place] [address], [place] GFR/1.73 sq M.predicted among blacks MDRD (S/P/Bld) [Vol rate/Area] mL/min/{1.73_m2} Normal >60 [facility] Comment on above: Performed By: #### 3 5200, 71848, 65323 #### [facility] [address] [place] [address], [place] GFR/1.73 sq M.predicted among non-blacks MDRD (S/P/Bld) [Vol rate/Area] mL/min/{1.73_m2} Normal >60 [facility] Comment on above: Performed By: #### 3 5200, 78813, 15331 #### [facility] [address] [place] [address], [place] Glucose [Mass/Vol] 142 mg/dL High 70-100 [facility] Comment on above: Performed By: #### 3 5200, 19031, 24808 #### [facility] [address] [place] [address], [place] Potassium [Moles/Vol] 3.9 mmol/L Normal 3.5-5.1 [facility] Comment on above: Performed By: #### 3 5200, 09892, 24456 #### [facility] [address] [facility] [place] [address], [facility] Protein [Mass/Vol] 6.6 g/dL Normal 6.0-8.3 The [facility] Comment on above: Performed By: #### 3 5200, 85015, 58336 #### [facility] [address] [facility]. [place], [place] [id number] [place] [address] Sodium [Moles/Vol] 134 mmol/L Low 136-145 The [facility] Comment on above: Performed By: #### 3 5200, 65891, 21369 #### [facility] [address] [place] [address], [facility] Urea nitrogen [Mass/Vol] 20 mg/dL Normal 7-25 The [facility] Comment on above: Performed By: #### 3 5200, 73575, 45661 #### [facility] [address] [place], [place] [id number] [place] [address] CT ABDOMEN AND PELVIS W IV C ONTRASTon 07-24-2020 CT ABDOMEN AND PELVIS W IV CONTRAST [facility] Department of Radiology [address] [place] [id number] Patient Name: NOÉ JEFFERY : 1965 Sex: M Age: Race: Other Pt. Location: [facility] Patient Status: E Ordered Date: 07/24/2020 3:15:00 [...] achievable. Electronically signed: Miguelito Balderas. Transcribed by: [email or web address], User Resident: Electronically Signed by: MIGUELITO BALDERAS @ 07/24/2020 04:14 PM Normal [facility] Comment on above: Order Comment: No: D o not add to previous draw LACTATE BLOODon 07-24-2020 Lactate [Moles/Vol] 1.0 mmol/L Normal 0.5-2.2 The [facility] Comment on above: Performed By: #### 1 0054 #### [address] LIPASE BLOODon 07-24-2020 LIPASE 7 Units/L Low 11-82 [facility] Comment on above: Performed By: #### 3 5200, 80289, 31311 #### [address] PORTABLE CHEST 1 VIEWon PORTABLE CHEST 1 VIEW [facility] Department of Radiology [address] [place] [address] Patient Name: NOÉ JEFFERY : 1965 Sex: M Age: Race: Other Pt. Location: [facility] Patient Status: E Ordered Date: 07/24/2020 3:15:00 [...] indicated. Electronically signed: Miguelito Balderas. Transcribed by: [email or web address], User Resident: Electronically Signed by: MIGUELITO BALDERAS @ 07/24/2020 03:58 PM Normal [facility] Comment on above: Order Comment: No: D o not add to previous draw TROPONIN-Ion 07-24-2020 Troponin I.cardiac [Mass/Vol] 0.00 ng/mL Normal 0.00-0.04 [facility] Comment on above: Result Comment: REFE RENCE RANGES: 0.00 - 0.14 ng/ml NEGATIVE 0.15 - 0.25 ng/ml INDETERMINATE > 0.25 ng/ml INDICATIVE OF AN M.I. Performed By: #### 3 5200, 89814, 15757 #### [facility] [address] URINALYSIS REFLEXon 07-24-19 Appearance (U) CLEAR Normal CLEAR The [facility] Comment on above: Order Comment: No: D o not add to previous draw Performed By: #### 0 0071, 87384 #### [facility] [address] [place] [address], [place] Bilirubin Ql (U) Negative Normal NEGATIVE The [facility] Comment on above: Order Comment: No: D o not add to previous draw Performed By: #### 0 0071, 75399 #### [facility] [address] [place] [address], [place] Color (U) ANEL Abnormal YELLOW [facility] Comment on above: Order Comment: No: D o not add to previous draw Performed By: #### 0 0071, 38846 #### [facility] [address] [place] [address], [place] Glucose Ql (U) Negative Normal NEGATIVE The [facility] Comment on above: Order Comment: No: D o not add to previous draw Performed By: #### 0 0071, 75849 #### [facility] [address] [place] [address], [place] Hemoglobin Ql (U) Negative Normal NEGATIVE The [facility] Comment on above: Order Comment: No: D o not add to previous draw Performed By: #### 0 0071, 27556 #### [facility] [address] [place] [address], [place] KETONE 20 mg/dL Abnormal NEGATIVE [facility] Comment on above: Order Comment: No: D o not add to previous draw Performed By: #### 0 0071, 67626 #### [facility] [address] [place] [address], [place] LEUK DINO Negative Normal NEGATIVE [facility] Comment on above: Order Comment: No: D o not add to previous draw Performed By: #### 0 0071, 24754 #### [facility] [address] [place] [address], [place] MICRO NOT DONE Normal The [facility] Comment on above: Order Comment: No: D o not add to previous draw Result Comment: Micr oscopics not performed on urines with negative chemical reactions unless requested in original order Performed By: #### 0 0071, 19164 #### [facility] [address] [place] [address], [facility] Nitrite Ql (U) Negative Normal NEGATIVE The [facility] Comment on above: Order Comment: No: D o not add to previous draw Performed By: #### 0 0071, 03900 #### [facility] [address] [place] [address], [facility] pH (U) 5.0 [pH] Normal 5.0-8.0 [facility] Comment on above: Order Comment: No: D o not add to previous draw Performed By: #### 0 0071, 73882 #### [facility] [address] [place] [address], [facility] Protein Ql (U) Negative Normal NEGATIVE The [facility] Comment on above: Order Comment: No: D o not add to previous draw Performed By: #### 0 0071, 22433 #### [facility] [address] [facility] [place] [address], [facility] SPEC GRAV 1.084 High 1.015-1.020 The [facility] Comment on above: Order Comment: No: D o not add to previous draw Result Comment: DONE BY DILUTION Performed By: #### 0 0071, 47667 #### [facility] [address] [facility] [address], [facility] BASIC METABOLIC PANELon 02-0 Calcium [Mass/Vol] 8.8 mg/dL Normal 8.6-10.3 [facility] Comment on above: Order Comment: No: D o not add to previous draw Performed By: #### 0 0071, 31674 #### [facility] [address] [place] [id number], [facility] Chloride [Moles/Vol] 103 mmol/L Normal 98-107 [facility] Comment on above: Order Comment: No: D o not add to previous draw Performed By: #### 0 0071, 89170 #### [facility] [address] [place] [address], [place] CO2 [Moles/Vol] 27 mmol/L Normal 21-31 The [facility] Comment on above: Order Comment: No: D o not add to previous draw Performed By: #### 0 0071, 97892 #### [facility] [address] [place] [address], [facility] Creatinine [Mass/Vol] 0.87 mg/dL Normal 0.70-1.30 [facility] Comment on above: Order Comment: No: D o not add to previous draw Performed By: #### 0 0071, 22024 #### [facility] [address] [place] [address], [facility] GFR/1.73 sq M.predicted among blacks MDRD (S/P/Bld) [Vol rate/Area] mL/min/{1.73_m2} Normal >60 [facility] Comment on above: Order Comment: No: D o not add to previous draw Performed By: #### 0 0071, 12411 #### [facility] [address] [place] [address], [place] GFR/1.73 sq M.predicted among non-blacks MDRD (S/P/Bld) [Vol rate/Area] mL/min/{1.73_m2} Normal >60 [facility] Comment on above: Order Comment: No: D o not add to previous draw Performed By: #### 0 0071, 99871 #### [facility] [address] [place] [address], [place] Glucose [Mass/Vol] 156 mg/dL High 70-100 [facility] Comment on above: Order Comment: No: D o not add to previous draw Performed By: #### 0 0071, 54828 #### [facility] [address] [place] [address], [facility] Potassium [Moles/Vol] 3.9 mmol/L Normal 3.5-5.1 [facility] Comment on above: Order Comment: No: D o not add to previous draw Performed By: #### 0 0071, 35120 #### [facility] [address] [place] [address], [place] Sodium [Moles/Vol] 136 mmol/L Normal 136-145 The [facility] Comment on above: Order Comment: No: D o not add to previous draw Performed By: #### 0 0071, 16305 #### [facility] [address] [place] [address], [facility] Urea nitrogen [Mass/Vol] 8 mg/dL Normal 7-25 [facility] Comment on above: Order Comment: No: D o not add to previous draw Performed By: #### 0 0071, 48247 #### [facility] [address] [place] [id number], [facility] CBC COMPLETE BLOOD COUNTon 0 - Erythrocyte distribution width (RBC) [Ratio] 15.1 % High 11.5-15.0 [facility] Comment on above: Order Comment: No: D o not add to previous draw Performed By: #### 0 0071 #### [facility] [address] [place] [address], [facility] Hematocrit (Bld) [Volume fraction] 44.1 % Normal 39.0-50.0 [facility] Comment on above: Order Comment: No: D o not add to previous draw Performed By: #### 0 0071 #### [facility] [address] [place] [address], [facility] Hemoglobin (Bld) [Mass/Vol] 13.4 g/dL Normal 13.0-17.0 [facility] Comment on above: Order Comment: No: D o not add to previous draw Performed By: #### 0 0071 #### [facility] [address] [place] [address], [facility] MCH (RBC) [Entitic mass] 23.1 pg Low 27.0-33.0 [facility] Comment on above: Order Comment: No: D o not add to previous draw Performed By: #### 0 0071 #### [facility] [address] [place] [address], [facility] MCHC (RBC) [Mass/Vol] 30.4 g/dL Low 32.0-35.0 [facility] Comment on above: Order Comment: No: D o not add to previous draw Performed By: #### 0 0071 #### [facility] [address] [facility] [address], [facility] MCV (RBC) [Entitic vol] 76.0 fL Low 82.0-98.0 [facility] Comment on above: Order Comment: No: D o not add to previous draw Performed By: #### 0 0071 #### [facility] [address] [place] [address], [facility] Nucleated RBC/100 WBC (Bld) [Ratio] 0 % Normal 0-0 [facility] Comment on above: Order Comment: No: D o not add to previous draw Performed By: #### 0 0071 #### [facility] [address] [facility] [place] [id number], [facility] PLAT CNT 190 10*3/uL Normal 150-400 [facility] Comment on above: Order Comment: No: D o not add to previous draw Performed By: #### 0 0071 #### [facility] [address] [place] [id number], [facility] RBC (Bld) [#/Vol] 5.80 10*6/uL High 4.20-5.70 The [facility] Comment on above: Order Comment: No: D o not add to previous draw Performed By: #### 0 0071 #### [facility] [address] [facility] [place] [place] [address], [facility] WBC (Bld) [#/Vol] 7.98 10*3/uL Normal 4.00-10.60 The [facility] Comment on above: Order Comment: No: D o not add to previous draw Performed By: #### 0 0071 #### [facility] [address] [place] [address], [facility] MAGNESIUM BLOODon 07-23-2020 Magnesium [Mass/Vol] 1.9 mg/dL Normal 1.9-2.7 [facility] Comment on above: Order Comment: No: D o not add to previous draw Performed By: #### 0 0071, 13665 #### [facility] [address] [facility] [place] [address], [facility] POC GLUCOSE LABon 07-23-2020 Glucose [Mass/Vol] 140 mg/dL High 70-100 The [facility] Comment on above: Performed By: #### 0 0071 #### [facility] [address] [facility] [place] [address], [place] Glucose [Mass/Vol] 155 mg/dL High 70-100 The [facility] Comment on above: Performed By: #### 0 0071, 93934 #### [facility] [address] [facility] [place] [address], [place] Glucose [Mass/Vol] 164 mg/dL High 70-100 The [facility] Comment on above: Performed By: #### 0 0071 #### [facility] [address] [place] [address], [facility] BASIC METABOLIC PANELon Calcium [Mass/Vol] 8.3 mg/dL Low 8.6-10.3 The [facility] Comment on above: Order Comment: No: D o not add to previous draw Performed By: #### 0 0071, 68888 #### [facility] [address] [place] [address], [facility] Chloride [Moles/Vol] 103 mmol/L Normal 98-107 [facility] Comment on above: Order Comment: No: D o not add to previous draw Performed By: #### 0 0071, 33355 #### [facility] [address] [place] [address], [place] CO2 [Moles/Vol] 26 mmol/L Normal 21-31 The [facility] Comment on above: Order Comment: No: D o not add to previous draw Performed By: #### 0 0071, 59551 #### [facility] [address] [place] [address], [place] Creatinine [Mass/Vol] 0.90 mg/dL Normal 0.70-1.30 [facility] Comment on above: Order Comment: No: D o not add to previous draw Performed By: #### 0 0071, 00041 #### [facility] [address] [place] [address], [place] GFR/1.73 sq M.predicted among blacks MDRD (S/P/Bld) [Vol rate/Area] mL/min/{1.73_m2} Normal >60 [facility] Comment on above: Order Comment: No: D o not add to previous draw Performed By: #### 0 0071, 02870 #### [facility] [address] [place] [address], [place] GFR/1.73 sq M.predicted among non-blacks MDRD (S/P/Bld) [Vol rate/Area] mL/min/{1.73_m2} Normal >60 [facility] Comment on above: Order Comment: No: D o not add to previous draw Performed By: #### 0 0071, 78130 #### [facility] [address] [place] [address], [place] Glucose [Mass/Vol] 166 mg/dL High 70-100 [facility] Comment on above: Order Comment: No: D o not add to previous draw Performed By: #### 0 0071, 23437 #### [facility] [address] [place] [address], [place] Potassium [Moles/Vol] 4.1 mmol/L Normal 3.5-5.1 [facility] Comment on above: Order Comment: No: D o not add to previous draw Performed By: #### 0 0071, 45765 #### [facility] [address] [place] [address], [place] Sodium [Moles/Vol] 136 mmol/L Normal 136-145 The [facility] Comment on above: Order Comment: No: D o not add to previous draw Performed By: #### 0 0071, 49907 #### [facility] [address] [place] [address], [place] Urea nitrogen [Mass/Vol] 12 mg/dL Normal 7-25 [facility] Comment on above: Order Comment: No: D o not add to previous draw Performed By: #### 0 0071, 96636 #### [facility] [address] [place] [address], [place] CBC COMPLETE BLOOD COUNTon 0 - Erythrocyte distribution width (RBC) [Ratio] 14.9 % Normal 11.5-15.0 [facility] Comment on above: Order Comment: No: D o not add to previous draw Performed By: #### 0 0071, 01815 #### [facility] [address] [place] [address], [place] Hematocrit (Bld) [Volume fraction] 42.8 % Normal 39.0-50.0 [facility] Comment on above: Order Comment: No: D o not add to previous draw Performed By: #### 0 0071, 14344 #### [facility] [address] [place] [address], [place] Hemoglobin (Bld) [Mass/Vol] 13.3 g/dL Normal 13.0-17.0 [facility] Comment on above: Order Comment: No: D o not add to previous draw Performed By: #### 0 0071, 16214 #### [facility] [address] [address], [facility] MCH (RBC) [Entitic mass] 23.4 pg Low 27.0-33.0 [facility] Comment on above: Order Comment: No: D o not add to previous draw Performed By: #### 0 0071, 27412 #### [facility] [address] [place] [address], [facility] MCHC (RBC) [Mass/Vol] 31.1 g/dL Low 32.0-35.0 [facility] Comment on above: Order Comment: No: D o not add to previous draw Performed By: #### 0 0071, 18423 #### [facility] [address] [facility] [place] [address], [facility] MCV (RBC) [Entitic vol] 75.2 fL Low 82.0-98.0 [facility] Comment on above: Order Comment: No: D o not add to previous draw Performed By: #### 0 0071, 48602 #### [facility] [address] [facility]. [address] Nucleated RBC/100 WBC (Bld) [Ratio] 0 % Normal 0-0 [facility] Comment on above: Order Comment: No: D o not add to previous draw Performed By: #### 0 0071, 15882 #### [facility] [address] [facility] [place] [address], [facility] PLAT CNT 211 10*3/uL Normal 150-400 [facility] Comment on above: Order Comment: No: D o not add to previous draw Performed By: #### 0 0071, 50825 #### [facility] [address] [facility] [place] [address], [facility] RBC (Bld) [#/Vol] 5.69 10*6/uL Normal 4.20-5.70 The [facility] Comment on above: Order Comment: No: D o not add to previous draw Performed By: #### 0 0071, 13781 #### [facility] [address] [facility]. [address] WBC (Bld) [#/Vol] 8.55 10*3/uL Normal 4.00-10.60 The [facility] Comment on above: Order Comment: No: D o not add to previous draw Performed By: #### 0 0071, 92588 #### [facility] [address] MAGNESIUM BLOODon 07-22-2020 Magnesium [Mass/Vol] 2.0 mg/dL Normal 1.9-2.7 [facility] Comment on above: Order Comment: No: D o not add to previous draw Performed By: #### 0 0071, 78961 #### [facility] [address] [facility]. [address] Operative Reporton Operative Report MR#: [id number] I [facility] Pt. Name: Noé Jeffery Room #: [id number] Discharge Date: Birthdate: 1965 OPERATIVE REPORT DATE [...] Izaguirre M.D. Date Trans: 07/21/2020 10:04 P/mmo [id number] cc: Jae Lopez M.D. [address] [address] Normal [facility] POC GLUCOSE LABon 07-22-2020 Glucose [Mass/Vol] 142 mg/dL High 70-100 [facility] Comment on above: Performed By: #### 0 0071, 12806 #### [facility] [address] [place] [address], [place] Glucose [Mass/Vol] 113 mg/dL High 70-100 [facility] Comment on above: Performed By: #### 0 0071, 29372 #### [facility] [address] [place] [address], [place] Glucose [Mass/Vol] 153 mg/dL High 70-100 The [facility] Comment on above: Performed By: #### 0 0071, 57522 #### [facility] [address] [place] [address], [place] Glucose [Mass/Vol] 127 mg/dL High 70-100 [facility] Comment on above: Performed By: #### 0 0071, 99438 #### [facility] [address] [place] [address], [place] Glucose [Mass/Vol] 176 mg/dL High 70-100 [facility] Comment on above: Performed By: #### 0 0071 #### [facility] [address] [place] [address], [place] *MRSA/MSSA DNA NASALon 07-21 *MRSA/MSSA DNA NASAL Clinical Report: (D ) Specimen: NASAL SWAB Collected: 07/21/2020 00:00 Status: Final Last Updated: 07/21/2020 15:28 (1) No collection time noted on specimen or requisition. The collection time recorded is the time of receipt in the lab. MSSA DNA (Final) Methicillin Susceptible Staphylococcus aureus DNA Detected MRSA DNA (Final) Negative Normal [facility] Comment on above: Order Comment: No: D o not add to previous draw Performed By: #### 0 0071, 03647 #### [facility] [address] [facility]. [address] POC GLUCOSE LABon 07-21-2020 Glucose [Mass/Vol] 168 mg/dL High 70-100 The [facility] Comment on above: Performed By: #### 0 0071 #### [facility] [address] [facility] [place] [address], [facility] Glucose [Mass/Vol] 211 mg/dL High 70-100 [facility] Comment on above: Performed By: #### 0 0071, 11769 #### [facility] [address] [facility] [place] [address], [facility] Glucose [Mass/Vol] 117 mg/dL High 70-100 The [facility] Comment on above: Performed By: #### 0 0071, 64324 #### [facility] [address] [facility]. [address] *SARS-CoV-2 COVID-19on 07-18 SARS-CoV-2 (COVID-19) RNA LILLIANA+probe Ql (Unsp spec) Not detected Normal Not Detected [facility] Comment on above: Order Comment: No: D o not add to previous draw Performed By: #### 0 0071, 23549 #### [facility] [address] [facility] [place] [address], [facility] BASIC METABOLIC PANELon 06-21 Calcium [Mass/Vol] 9.2 mg/dL Normal 8.6-10.3 [facility] Comment on above: Performed By: #### 0 0071 #### [facility] [address] [facility] [place] [address], [facility] Chloride [Moles/Vol] 100 mmol/L Normal 98-107 [facility] Comment on above: Performed By: #### 0 0071 #### [facility] [address] [facility] [place] [address], [facility] CO2 [Moles/Vol] 30 mmol/L Normal 21-31 The [facility] Comment on above: Performed By: #### 0 0071 #### [facility] [address] [facility] [place] [address], [facility] Creatinine [Mass/Vol] 1.01 mg/dL Normal 0.70-1.30 [facility] Comment on above: Performed By: #### 0 0071 #### [facility] [address] [facility] [place] [address], [place] GFR/1.73 sq M.predicted among blacks MDRD (S/P/Bld) [Vol rate/Area] mL/min/{1.73_m2} Normal >60 [facility] Comment on above: Performed By: #### 0 0071 #### [facility] [address] [facility] [place] [address], [place] GFR/1.73 sq M.predicted among non-blacks MDRD (S/P/Bld) [Vol rate/Area] mL/min/{1.73_m2} Normal >60 [facility] Comment on above: Performed By: #### 0 0071 #### [facility] [address] [facility] [place] [address], [place] Glucose [Mass/Vol] 121 mg/dL High 70-100 The [facility] Comment on above: Performed By: #### 0 0071 #### [facility] [address] [place] [address], [facility] Potassium [Moles/Vol] 4.4 mmol/L Normal 3.5-5.1 [facility] Comment on above: Performed By: #### 0 0071 #### [facility] [address] [facility] [place] [address], [facility] Sodium [Moles/Vol] 135 mmol/L Low 136-145 The [facility] Comment on above: Performed By: #### 0 [id number] #### [facility] [address] [place] [address], [facility] Urea nitrogen [Mass/Vol] 14 mg/dL Normal 7-25 The [facility] Comment on above: Performed By: #### 0 [id number] #### [facility] [address] CBC W/DIFFon 07-18-2020 ABS IMM GRANS 0.0 10*3/uL Normal 0.0-0.2 The [facility] Comment on above: Performed By: #### 0 [id number] #### [facility] [address] [place] [address], [facility] ABS NEUTROPHILS 2.5 10*3/uL Normal 1.6-7.6 The [facility] Comment on above: Performed By: #### 0 [id number] #### [facility] [address] [place] [address], [facility] Basophils (Bld) [#/Vol] 0.0 10*3/uL Normal 0.0-0.2 [facility] Comment on above: Performed By: #### 0 [id number] #### [facility] [address] [place] [address], [facility] Basophils/100 WBC (Bld) 0.9 % Normal 0.0-1.0 [facility] Comment on above: Performed By: #### 0 [id number] #### [facility] [address] Eosinophils (Bld) [#/Vol] 0.1 10*3/uL Normal 0.0-0.5 [facility] Comment on above: Performed By: #### 0 [id number] #### [facility] [address] [place] [address], [facility] Eosinophils/100 WBC (Bld) 1.2 % Normal 0.0-6.0 [facility] Comment on above: Performed By: #### 0 [id number] #### [facility] [address] Erythrocyte distribution width (RBC) [Ratio] 14.8 % Normal 11.5-15.0 [facility] Comment on above: Performed By: #### 0 [id number] #### [facility] [address] Hematocrit (Bld) [Volume fraction] 47.6 % Normal 39.0-50.0 [facility] Comment on above: Performed By: #### 0 [id number] #### [facility] [address] Hemoglobin (Bld) [Mass/Vol] 14.5 g/dL Normal 13.0-17.0 [facility] Comment on above: Performed By: #### 0 [id number] #### [facility] [address] [place] [address], [facility] IMMATURE GRANS 0.2 % Normal 0.0-1.0 [facility] Comment on above: Performed By: #### 0 [id number] #### [facility] [address] [place] [address], [facility] Lymphocytes (Bld) [#/Vol] 1.4 10*3/uL Normal 1.2-4.0 [facility] Comment on above: Performed By: #### 0 [id number] #### [facility] [address] [facility] [place] [address], [facility] Lymphocytes/100 WBC (Bld) 32.9 % Normal 20.0-45.0 [facility] Comment on above: Performed By: #### 0 [id number] #### [facility] [address] [place] [address], [facility] MCH (RBC) [Entitic mass] 23.2 pg Low 27.0-33.0 [facility] Comment on above: Performed By: #### 0 [id number] #### [facility] [address] [facility] [place] [address], [facility] MCHC (RBC) [Mass/Vol] 30.5 g/dL Low 32.0-35.0 [facility] Comment on above: Performed By: #### 0 [id number] #### [facility] [address] [place] [address], [facility] MCV (RBC) [Entitic vol] 76.0 fL Low 82.0-98.0 [facility] Comment on above: Performed By: #### 0 [id number] #### [facility] [address] [facility] [address], [facility] Monocytes (Bld) [#/Vol] 0.3 10*3/uL Normal 0.1-1.0 [facility] Comment on above: Performed By: #### 0 [id number] #### [facility] [address] [facility] [address], [facility] MONOS 7.5 % Normal 5.0-12.0 [facility] Comment on above: Performed By: #### 0 [id number] #### [facility] [address] [address], [facility] Neutrophils/100 WBC (Bld) 57.3 % Normal 40.0-72.0 [facility] Comment on above: Performed By: #### 0 [id number] #### [facility] [address] [place] [address], [facility] Nucleated RBC/100 WBC (Bld) [Ratio] 0 % Normal 0-0 [facility] Comment on above: Performed By: #### 0 [id number] #### [facility] [address] [place] [address], [facility] PLAT CNT 222 10*3/uL Normal 150-400 The [facility] Comment on above: Performed By: #### 0 [id number] #### [facility] [address] RBC (Bld) [#/Vol] 6.26 10*6/uL High 4.20-5.70 The [facility] Comment on above: Performed By: #### 0 [id number] #### [facility] [address] WBC (Bld) [#/Vol] 4.28 10*3/uL Normal 4.00-10.60 The [facility] Comment on above: Performed By: #### 0 [id number] #### [facility] [address] PROTHROMBIN TIMEon 1 INR Coag (PPP) [Relative time] 0.95 {INR} Normal 0.91-1.16 [facility] Comment on above: Result Comment: ACCC P RECOMMENDED INR FOR WARFARIN THERAPY -------- ------- CONDITION INR PROPHYLAXIS OF VENOUS THROMBOSIS 2-3 (HIGH-RISK SURGERY) TREATMENT OF VENOUS THROMBOSIS 2-3 TREATMENT OF PULMONARY EMBOLISM 2-3 PREVENTION OF SYSTEMIC EMBOLISM: 2-3 ACUTE MYOCARDIAL INFARCTION TISSUE HEART VALVES VALVULAR HEART DISEASE ATRIAL FIBRILLATION RECURRENT SYSTEMIC EMBOLISM MECHANICAL HEART VALVE 2.5-3.5 FROM: ORAL ANTICOAGULANTS. MECHANISM OF ACTION, CLINICAL EFFECTIVENESS, AND OPTIMAL THERAPEUTIC RANGE. CHEST 1995;108:231S-246S. Performed By: #### 0 [id number], [id number] #### [facility] [address] [place] [address], [facility] PT Coag (PPP) [Time] 12.7 s Normal 12.3-14.8 [facility] Comment on above: Result Comment: ALL RESULTS MUST BE INTERPRETED WITH RESPECT TO BLOOD DRAWING ARTIFACT OR DILUTION ERROR OF ANTICOAGULANT AT THE TIME OF SAMPLING. Performed By: #### 0 [id number], [id number] #### [facility] [address] Vital Signs Date Time Vital Sign Value Performing Clinician Facility 07-22-2024 08:01-0500 Diastolic blood pressure 70 mm[Hg] Suzanne Shipley MD Work Phone: [facility] 07-22-2024 08:01-0500 Heart rate 92 /min Suzanne Shipley MD Work Phone: [facility] 07-22-2024 08:01-0500 SaO2% (BldA) [Mass fraction] 95 % Suzanne Shipley MD Work Phone: [facility] 07-22-2024 08:01-0500 Systolic blood pressure 105 mm[Hg] Suzanne Shipley MD Work Phone: [facility] 07-22-2024 05:00-0500 Body temperature 97.7 [degF] Suzanne Shipley MD Work Phone: [facility] 07-22-2024 05:00-0500 Respiratory rate 15 /min Suzanne Shipley MD Work Phone: [facility] 07-12-2024 07:00-0500 Body mass index (BMI) [Ratio] 30.78 kg/m2 Suzanne Shipley MD Work Phone: [facility] 07-12-2024 07:00-0500 Body weight 83.9 kg Suzanne Shipley MD Work Phone: [facility] 06-21-2024 10:23-0500 Heart rate 69 /min Danni Lue [facility] 06-21-2024 10:23-0500 SaO2% (BldA) [Mass fraction] 98 % Danni Lue [facility] 06-21-2024 10:23-0500 Diastolic blood pressure 88 mm[Hg] Danni Lue [facility] 06-21-2024 10:23-0500 Mean blood pressure 104 mm[Hg] Danni Lue [facility] 06-21-2024 10:23-0500 Systolic blood pressure 135 mm[Hg] Danni Lue [facility] 03-15-2024 14:28-0400 Body height 165.1 cm MD Jae Lopez Work Phone: [facility] 03-15-2024 14:28-0400 Body weight 73.93 kg MD Jae Lopez Work Phone: [facility] 01-11-2024 09:54-0400 Blood Pressure Location Danni Lue [facility] 01-11-2024 09:54-0400 Body temperature 98.6 [degF] Danni Lue [facility] 01-11-2024 09:54-0400 Diastolic blood pressure 72 mm[Hg] Danni Lue [facility] 01-11-2024 09:54-0400 Heart rate 57 /min Danni Lue [facility] 01-11-2024 09:54-0400 Respiratory rate 16 /min Danni Montgomerye [facility] 01-11-2024 09:54-0400 Systolic blood pressure 119 mm[Hg] Danni Lue [facility] 10-12-2022 12:01-0400 Diastolic blood pressure 74 mm[Hg] Miguelito Chicas APRN.CCIE Work Phone: [facility] 10-12-2022 12:01-0400 Heart rate 58 /min Miguelito Chicas APRN.CCIE Work Phone: [facility] 10-12-2022 12:01-0400 Systolic blood pressure 117 mm[Hg] Miguelito Chicas APRN.CCIE Work Phone: [facility] 04-30-2022 10:56-0500 Body weight 86.23 kg Gera Brianaibalas DO Work Phone: [facility] 04-30-2022 10:56-0500 Diastolic blood pressure 91 mm[Hg] Gera Brianaibalas DO Work Phone: [facility] 04-30-2022 10:56-0500 Heart rate 82 /min Gera Warrenibalas DO Work Phone: [facility] 04-30-2022 10:56-0500 SaO2% (BldA) [Mass fraction] 97 % Gera Brianaibalas DO Work Phone: [facility] 04-30-2022 10:56-0500 Systolic blood pressure 139 mm[Hg] Gera Bravolas DO Work Phone: [facility] 04-26-2022 03:51-0500 Body height 165.1 cm Roosevelt Merlos MD Work Phone: [facility] 04-26-2022 03:51-0500 Body weight 83.6 kg Roosevelt Merlos MD Work Phone: [facility] 04-22-2022 16:41-0400 Diastolic blood pressure 100 mm[Hg] Brenda Francis GUEST RELATIONS MANAGER.CCIE Work Phone: [facility] 04-22-2022 16:41-0400 Systolic blood pressure 156 mm[Hg] Brenda Francis GUEST RELATIONS MANAGER.CCIE Work Phone: [facility] 04-22-2022 16:17-0400 Body temperature 98.29 [degF] Brenda Francis GUEST RELATIONS MANAGER.CCIE Work Phone: [facility] 04-22-2022 16:17-0400 Body weight 86.27 kg Brenda Francis GUEST RELATIONS MANAGER.CCIE Work Phone: [facility] 04-22-2022 16:17-0400 Heart rate 98 /min Brenda Fracnis GUEST RELATIONS MANAGER.CCIE Work Phone: [facility] 04-22-2022 16:17-0400 SaO2% (BldA) [Mass fraction] 100 % Brenda Francis GUEST RELATIONS MANAGER.CCIE Work Phone: [facility] Encounters Encounter Date Encounter Type Care Provider Facility Start: 07-30-2024 End: 07-30-2024 ambulatory FIDELINA FISHER Facility:[facility] Start: 07-22-2024 End: 07-22-2024 Evaluation and management of inpatient CHANDLER Murillo LOUIE [facility] Start: 07-20-2024 End: 07-20-2024 Telephone encounter Briana Mcdermott MD Work Phone: Neurology Start: 07-18-2024 End: 07-20-2024 Telephone encounter Narciso Guerra MD Work Phone: Neurology Comment on above: Patient Question Start: 07-17-2024 End: 07-18-2024 Telephone encounter Narciso Guerra MD Work Phone: Neurology Comment on above: Patient Question Start: 07-12-2024 End: 07-12-2024 Telephone encounter Kelly Johnson [facility] Comment on above: patient concern Start: 07-11-2024 ambulatory Danni Graham Facility:[facility] Start: 07-10-2024 ambulatory [facility] Start: 07-10-2024 End: 07-10-2024 Evaluation and management of inpatient CECILE HENRY [facility] Start: 07-08-2024 End: 07-08-2024 Evaluation and management of inpatient [facility] Start: 07-08-2024 End: 07-22-2024 Evaluation and management of inpatient [facility] Start: 07-06-2024 End: 07-06-2024 Evaluation and management of inpatient KHALIF VALERIO [facility] Start: 07-06-2024 End: 07-22-2024 Evaluation and management of inpatient Nichol Heath MD Work Phone: [facility] - GEN 8 Acute Comment on above: Dementia with behavi oral disturbance ([facility]) (Primary Dx); Status post colostomy, follow-up exam ([facility]) Start: 07-03-2024 ambulatory [facility] Start: 07-03-2024 End: 07-05-2024 Emergency department patient visit [facility] Start: 06-25-2024 ambulatory Elliott Romeo acility:[facility] Start: 06-24-2024 End: 06-24-2024 Emergency department patient visit MAITE MORRIS [facility] Start: 06-21-2024 End: 06-21-2024 ambulatory Danni Graham Facility[facility] Start: 06-21-2024 End: 06-21-2024 Patient encounter procedure Danni Graham [facility] Start: 05-02-2024 End: 06-27-2024 Pre-admission assessment Danni Graham [facility] Start: 03-15-2024 End: 03-15-2024 Patient encounter procedure MD Jae Lopez Work Phone: [facility] [place] Work Phone: Start: 03-15-2024 End: 03-15-2024 ambulatory MD Jae Lopez Work Phone: [facility] Work Phone: Start: 03-09-2024 End: 03-09-2024 Patient Msg Lisandra Gomez GUEST RELATIONS MANAGER.CCIE Work Phone: Neurology Comment on above: refill Start: 03-09-2024 End: 03-09-2024 Refill Lorri Plascencia MD Work Phone: Neurology Comment on above: Refill Request Start: 01-25-2024 End: 01-25-2024 ambulatory Danni Graham Facility:[facility] Start: 01-25-2024 End: 01-25-2024 Off-Site Danni M. Valentinae [facility] Start: 01-11-2024 End: 01-11-2024 ambulatory Danni M. Lue Facility:[facility] [place] Start: 01-11-2024 End: 01-11-2024 Patient encounter procedure [facility] Start: 12-21-2023 ambulatory Danni Lue Facility:[facility] Start: 12-06-2023 Refill Lorri orellana MD Work Phone: Neurology Comment on above: Refill Request donepezil refill Start: 03-07-2023 Patient entered into trial Tabby Naqvi Research Coordinator [facility] Start: 03-07-2023 Telephone encounter Tabby locke Research Coordinator Neurology Comment on above: Research ([facility] (IRB [id number])) Start: 02-08-2023 E-mail encounter fro m caregiver Sonal Weinstein APRN.CCIE Work Phone: [facility] Start: 02-08-2023 Follow-up encounter Sonal Beltran APRN.CCIE Work Phone: Neurology Comment on above: sleep follow up Start: 02-08-2023 Patient entered into trial Tabby Naqvi Research Coordinator [facility] Start: 02-08-2023 Telephone encounter Tbaby locke Research Coordinator Neurology Comment on above: Research ([facility] (IRB [id number]) Interest) Start: 02-04-2023 Telephone encounter Sonal Beltran GUEST RELATIONS MANAGER.CCIE Work Phone: Neurology Comment on above: PAP Therapy Follow U p (12/18/22 - 01/16/[address] FROM DME ) Start: 02-02-2023 Refill Lorri orellana MD Work Phone: Neurology Comment on above: Refill Request Start: 01-13-2023 Telephone encounter Kary Gaxiola RN Work Phone: Neurology Comment on above: Returning Patient's Call Start: 12-03-2022 Telephone encounter Sonal Beltran GUEST RELATIONS MANAGER.CCIE Work Phone: Neurology Comment on above: PAP Rx Faxed (DME: [facility] ) Start: 12-02-2022 End: 12-02-2022 Telemedicine consultation with patient Sonal Weinstein APRN.CCIE Work Phone: [facility] Start: 12-02-2022 End: 12-02-2022 ambulatory Lorri Plascencia MD Work Phone: Neurology Comment on above: Forms from [employer] Obstructive sleep ap carol (Primary Dx); Primary central sleep apnea; Hyperlipidemia, unspecified hyperlipidemia type Start: 12-02-2022 E-mail encounter chris m caregiver Lorri Plascencia MD Work Phone: [facility] Start: 11-17-2022 End: 11-17-2022 ambulatory Lorri Plascencia MD Work Phone: Neurology Comment on above: Alzheimer's disease (HCC) (Primary Dx) Start: 11-17-2022 End: 11-17-2022 Telemedicine consultation with patient Lorri Plascencia MD Work Phone: [facility] Start: 10-21-2022 End: 10-22-[address] JAE LOPEZ . Facility: Start: 10-12-2022 End: 10-12-2022 Patient encounter procedure Miguelito Chicas GUEST RELATIONS MANAGER.CCIE Work Phone: Neurology Comment on above: Memory loss (Primary Dx); Encounter for lumbar puncture Start: 10-12-2022 End: 10-12-2022 Patient encounter status Miguelito Chicas APRN.CCIE Work Phone: Neurology Start: 08-12-2022 Chart abstracting Leah Mckeon RN Ne urology Start: 08-11-2022 End: 08-11-2022 ambulatory Lorri Plascencia MD Work Phone: Neurology Comment on above: Memory loss (Primary Dx) Start: 08-11-2022 End: 08-11-2022 Telemedicine consultation with patient Lorri Plascencia MD Work Phone: [facility] Start: 08-10-2022 E-mail encounter fro m caregiver [facility] Provider MARY ROMO [facility] Start: 08-10-2022 Patient encounter procedure [facility] Provider Neurology Comment on above: cancel appointment Start: 07-21-2022 End: 07-21-2022 ambulatory Lorri Plascencia MD Work Phone: Neurology Comment on above: Memory loss Start: 07-21-2022 End: 07-21-2022 Telemedicine consultation with patient Lorri Plascencia MD Work Phone: [facility] Start: 05-07-2022 ambulatory NARCISO GUERRA Facility:[facility] Start: 05-07-2022 End: 05-07-2022 Subsequent hospital visit by physician Mri [facility] (Istat/3t) Work Phone: [facility] Radiology MRI Comment on above: Cognitive changes [R 41.89] Start: 04-30-2022 End: 04-30-2022 Patient encounter procedure Gera Cardona DO Work Phone: Neurology Comment on above: SHELBY (obstructive sle ep apnea) (Primary Dx) Start: 04-28-2022 ambulatory Naricso Guerra MD Work Phone: Neurology Comment on above: sleep study results Start: 04-28-2022 E-mail encounter chris m caregiver Narciso Guerra MD Work Phone: [facility] Start: 04-27-2022 ambulatory Narciso Guerra MD Work Phone: Neurology Comment on above: lab results Start: 04-27-2022 E-mail encounter chris m caregiver Narciso Guerra MD Work Phone: [facility] Start: 04-25-2022 Chart abstracting Roosevelt Merlos MD Work Phone: Neurology Start: 04-22-2022 End: 04-22-2022 Office outpatient visit 15 minutes Brenda Blanco APRN.CCIE Work Phone: [facility] Comment on above: Bilateral impacted c erumen (Primary Dx); Elevated blood pressure reading without diagnosis of hypertension; Acute otitis externa of left ear, unspecified type Start: 04-22-2022 End: 04-22-2022 Patient encounter procedure Anika Hope, CCC-A Work Phone: Audiology Comment on above: Bilateral impacted c erumen (Primary Dx) Start: 01-21-2022 End: 01-22-[address] JAE LOPEZ . Facility: Start: 01-12-2022 End: 01-13-[address] JAE LOPEZ . Facility: Start: 07-24-2020 End: 07-26-2020 Evaluation and management of inpatient JAE LOPEZ Facility:[facility] Start: 07-21-2020 End: 07-23-2020 ambulatory NAYA IZAGUIRRE Facility:[facility] Procedures Date Procedure Procedure Detail Performing Clinician Start: 07-17-2024 Basic metabolic pane l calcium total Suzanne Shipley MD Work Phone: Start: 07-11-2024 H/O: colostomy Status post colostomy, follow-up exam Kelly Johnson Start: 07-10-2024 LUMBAR PUNCTURE Arnulfo Haley MD Work Phone: Start: 07-10-2024 Cell count misc body fluids w/differential count Arnulfo Haley MD Work Phone: Start: 07-10-2024 Cul bact xcpt urine blood/stool aerobic isol Arnulfo Haley MD Work Phone: Start: 07-10-2024 CYTOLOGY Arnulfo brothers MD Work Phone: Start: 07-10-2024 Flow cytometry cell surf marker techl only 1st Arnulfo Haley MD Work Phone: Start: 07-10-2024 Glucose body fluid o ther than blood Arnulfo Haley MD Work Phone: Start: 07-10-2024 End: 07-10-2024 Diagnostic lumbar spinal puncture Zach Nails MD Work Phone: Start: 07-10-2024 Mri brain brain stem w/o w/contrast material Cecile Henry MD Work Phone: Start: 07-09-2024 Antibody kalia gardinernaseemdino oviedo virus Arnulfo Haley MD Work Phone: Start: 07-09-2024 Assay of gammaglobul in iga igd igg igm each Arnulfo Haley MD Work Phone: Start: 07-09-2024 UNLISTED LAB TEST Manuela Haley MD Work Phone: Start: 07-09-2024 Ecg routine ecg w/le ast 12 lds trcg only w/o i&r Kelvin Johnson MD Work Phone: Start: 07-09-2024 Prothrombin time Cecile Henry MD Work Phone: Start: 07-08-2024 EEG Arnulfo brothers MD Work Phone: Start: 07-08-2024 Basic metabolic pane l calcium total Nichol Heath MD Work Phone: Start: 07-08-2024 Iaad ia hiv-1 ag w/h iv-1 & hiv-2 antbdy single Nichol Heath MD Work Phone: Start: 07-07-2024 Antibody treponema pallidum Nichol Heath MD Work Phone: Start: 07-07-2024 Basic metabolic pane l calcium total Nichol Heath MD Work Phone: Start: 07-07-2024 Ct head/brain w/o contrast material Khalif Valerio MD Work Phone: Start: 07-06-2024 EEG Khalif Valerio MD Work Phone: Start: 07-06-2024 Basic metabolic pane l calcium total Nichol Heath MD Work Phone: Start: 03-15-2024 MR prostate wo/w con MD Jae Lopez Work Phone: Start: 10-12-2022 TOURTELLOTTE BLOOD Og zaina Chicas APRN.CCIE Work Phone: Start: 10-12-2022 Cell count misc body fluids w/differential count Miguelito Chicas APRN.CCIE Work Phone: Start: 10-12-2022 CSF MANUAL DIFF Miguelito Chicas APRN.CCIE Work Phone: Start: 10-12-2022 Glucose body fluid o ther than blood Miguelito Chicas APRN.CCIE Work Phone: Start: 05-07-2022 MRI 3D POST PROCESSING Narciso Guerra MD Work Phone: Start: 05-07-2022 Mri brain brain stem w/o contrast material Narciso Guerra MD Work Phone: Start: 07-21-2020 ANESTH REPAIR OF HERNIA NAYA IZAGUIRRE Start: 07-21-2020 HERNIA REPAIR W/MESH JI BRANDON IZAGUIRRE Start: 07-21-2020 Release Peritoneum, Percutaneous Endoscopic Approach NAYA IZAGUIRRE Start: 07-21-2020 ROBOTIC ASSISTED PROCEDURE OF TRUNK, PERC ENDO APPROACH WILLAMBROOKE IZAGUIRRE Start: 07-21-2020 ROBOTIC SURGICAL SYSTEM WILLAMBROOKE IZAGUIRRE Start: 07-21-2020 RPR VENTRAL JAGRUTI INI T REDUC WILLAMBROOKE IZAGUIRRE Start: 07-21-2020 SUPPLEMENT ABDOMINAL WALL WITH SYNTH SUB, PERC ENDO APPROACH WILLAMBROOKE IZAGUIRRE Start: 06-20-2020 Primary repair of inguinal hernia using synthetic patch Danni Graham Start: 11-18-2018 Sigmoidostomy Danni Graham Start: 09-20-2018 Partial resection of colon Danni Graham Start: 01-05-2016 Biopsy of prostate Margarita Graham Comment on above: by Dr. Amato Extraction of cataract Danni Graham H/O: colostomy Status post colostomy, follow-up exam ([facility]) Nichol Heath MD Work Phone: Repair of artery Danni Graham Plan of Treatment Date Care Activity Detail Author Start: 11-23-2029 DTaP,Tdap and Td Vaccines (2 - Td or Tdap) DTaP,Tdap and Td Vaccines (2 - Td or Tdap) [facility] [employer] [facility] Start: 11-23-2029 Urine microalbumin profile DTaP,Tdap,Td Vaccine (2 - Td or Tdap) [facility] Start: 07-17-2027 Diabetes Screening Diabetes Screenin [facility] Start: 07-11-2025 Tobacco Screening Tobacco Screening [facility] [employer] [facility] Start: 07-10-2025 Adult BMI Screening Adult BMI Screen ing [facility] Start: 04-22-2025 DIABETES SCREEN DIABETES SCREEN [facility] Start: 04-22-2025 Diabetes Screening Diabetes Screenin g [facility] Start: 01-17-2025 End: 07-20-2025 MR Brain WO and W contrast IV MR brain with and without contrast Imaging Routine Dementia with behavioral disturbance ([facility]) Expected: 01/17/2025 (Approximate), Expires: 07/20/2025 [facility] Work Phone: Comment on above: Expected: 01/17/2025 (Approximate), Expires: 07/20/2025 Start: 12-18-2024 End: 12-18-2024 Patient encounter procedure 12/18/2024 2:10 PM EDT Office Visit [facility] [address] [place] [phone] Flip Villar MD [address] [place] [phone] [facility] Start: 07-30-2024 End: 07-30-2024 Patient encounter procedure 07/30/2024 12:40 PM EST Office Visit [facility] [address] [place] [address] Fidelina Fisher, GUEST RELATIONS MANAGER.CCIE [address] [place] [address] TBI (Traumatic Brain Injury) [facility] Comment on above: TBI (Traumatic Brain Injury) Start: 02-19-2024 Covid-19 Vaccine ( season) Covid-19 Vaccine ( season) [facility] Start: 02-19-2024 COVID-19 Vaccine ( season) COVID-19 Vaccine ( season) [facility] Start: 02-19-2024 Influenza vaccination C [facility] Start: 06-20-2023 Behavioral Health Screening Behavioral Health Screening [facility] Start: 02-18-2023 Covid-19 Vaccine ( season) Covid-19 Vaccine ( season) [facility] Start: 02-18-2023 Influenza vaccination C [facility] Start: 10-12-2022 End: 12-12-2022 ADMARK PHOSPHO-TAU TOTAL-TAU/AB42 CSF [facility] Work Phone: Comment on above: Expected: 10/12/2022 , Expires: 12/12/2022 Start: 10-12-2022 End: 12-12-2022 Reagin Ab [Titer] in Cerebral spinal fluid by VDRL [facility] Work Phone: Comment on above: Expected: 10/12/2022 , Expires: 12/12/2022 Start: 08-11-2022 End: 10-11-2022 Cell count panel - Cerebral spinal fluid CSF CELL COUNT Lab Routine Memory loss Expected: 08/11/2022, Expires: 10/11/2022 [facility] Work Phone: Comment on above: Expected: 08/11/2022 , Expires: 10/11/2022 Start: 08-11-2022 End: 10-11-2022 Glucose [Mass/volume] in Cerebral spinal fluid GLUCOSE CSF Lab Routine Memory loss Expected: 08/11/2022, Expires: 10/11/2022 [facility] Work Phone: Comment on above: Expected: 08/11/2022 , Expires: 10/11/2022 Start: 08-11-2022 End: 10-11-2022 MISC SEND OUT TST 1 MISC SEND OUT TST 1 Lab Routine Memory loss Expected: 08/11/2022, Expires: 10/11/2022 [facility] Work Phone: Comment on above: Expected: 08/11/2022 , Expires: 10/11/2022 Start: 08-11-2022 End: 10-11-2022 Protein [Mass/volume] in Cerebral spinal fluid PROTEIN CSF Lab Routine Memory loss Expected: 08/11/2022, Expires: 10/11/2022 [facility] Work Phone: Comment on above: Expected: 08/11/2022 , Expires: 10/11/2022 Start: 08-11-2022 End: 10-11-2022 Reagin Ab [Titer] in Cerebral spinal fluid by VDRL VDRL CSF Lab Routine Memory loss Expected: 08/11/2022, Expires: 10/11/2022 [facility] Work Phone: Comment on above: Expected: 08/11/2022 , Expires: 10/11/2022 Start: 08-11-2022 End: 10-11-2022 TOURTELLOTTE BLOOD TOURTELLOTTE BLOOD Lab Routine Memory loss Expected: 08/11/2022, Expires: 10/11/2022 [facility] Work Phone: Comment on above: Expected: 08/11/2022 , Expires: 10/11/2022 Start: 06-20-2022 DEPRESSION ASSESSMENT DEPRESSION ASS TONSIL HOSPITALMENT [facility] Start: 02-18-2022 Influenza vaccination INFLUENZA (#1) [facility] Start: 06-20-2021 DEPRESSION ASSESSMENT DEPRESSION ASS ESSMENT [facility] Start: 05-29-2021 COVID-19 VACCINE (3 - Booster for Pfizer series) COVID-19 VACCINE (3 - Booster for Pfizer series) [facility] Start: 05-29-2021 COVID-19 VACCINE (3 - Pfizer series) COVID-19 VACCINE (3 - Pfizer series) [facility] Start: 2020 PROSTATE CANCER SCREENING DISCUSSION PROSTATE CANCER SCREENING DISCUSSION [facility] Start: 2020 Prostate specific antigen measurement Prostate Cancer Screening Discussion [facility] Start: 2015 Administration of varicella zoster vaccine Zoster (Shingles) [facility] (1 of 2) [facility] Start: 2015 Pneumococcal Vaccine : 50+ (1 of 1 - PCV) Pneumococcal Vaccine: 50+ (1 of 1 - PCV) [facility] Start: 2015 SHINGRIX VACCINE (1 of 2) SHINGRIX VACCINE (1 of 2) [facility] Start: 2010 COLOGUARD (FIT-DNA) COLOGUARD (FIT-D NA) [facility] Start: 2010 Colonoscopy COLONOSCOPY [facility] Start: 2010 COLORECTAL CANCER SCREENING COLORECTAL CANCER SCREENING [facility] Start: [address] COLONOGRAPHY [facility] Start: 2010 DIABETES SCREEN DIABETES SCREEN [facility] Start: 2010 FECAL OCCULT BLOOD FECAL OCCULT BLOO D [facility] Start: 2010 Screening for malign ant neoplasm of colon [facility] Start: 2010 [facility]OSCOPY [facility] Start: 2000 Lipid 1996 panel - S flakita or Plasma Lipid Screening [facility] Start: 2000 Lipid panel Lipid Screening [facility] Start: 2000 LIPID SCREEN LIPID SCREEN [facility] Start: 1984 Hepatitis B Vaccine (1 of 3 - 19+ 3-dose series) Hepatitis B Vaccine (1 of 3 - 19+ 3-dose series) [facility] Start: 1984 Urine microalbumin profile [facility] Start: 1983 Adult BMI Follow Up Plan Adult BMI Follow Up Plan [facility] Start: 1983 Anxiety Screening Anxiety Screening [facility] Start: 1983 Depression Screening Depression Scre ing [facility] Start: 1983 HEPATITIS C SCREENING HEPATITIS C SC [facility] Start: 1983 Hepatitis C screening Hepatitis C [facility] Start: 1983 HIV SCREENING HIV SCREENING [facility] Start: 1977 Depression Screening Depression Scre ening [facility] Start: 1965 HEPATITIS B (1 of 3 - 3-dose series) HEPATITIS B (1 of 3 - 3-dose series) [facility] Start: 1965 Hepatitis B Vaccine (1 of 3 - 3-dose series) Hepatitis B Vaccine (1 of 3 - 3-dose series) [facility] End: 07-06-2024 ECG 12 lead ECG 12 lead ECG Routine Once for 1 Occurrences starting 07/06/2024 until 07/06/2024 [facility] Comment on above: Once for 1 Occurrenc es starting 07/06/2024 until 07/06/2024 End: 08-11-2023 LUMBAR PUNCTURE/YESICA LUMBAR PUNCTURE/YESICA NEUROLOGY Routine Memory loss 1 Occurrences starting 08/11/2022 until 08/11/2023 [facility] Work Phone: Comment on above: 1 Occurrences starti ng 08/11/2022 until 08/11/2023 End: 10-13-2023 LUMBAR PUNCTURE/YESICA LUMBAR PUNCTURE/YESICA NEUROLOGY Routine Memory loss 1 Occurrences starting 10/12/2022 until 10/13/2023 [facility] Work Phone: Comment on above: 1 Occurrences starti ng 10/12/2022 until 10/13/2023 Oxygen Therapy - Maintain SpO2: 90%; *ELASTIC ATTACHER COVERSTITCH Guidelines for O2: Yes; Document: \[email or web address]\epi c\EPIC_Reference\Orders\ Respiratory Care Guidelines\CPG Oxygen 2022.pdf Oxygen Therapy - Maintain SpO2: 90%; *ELASTIC ATTACHER COVERSTITCH Guidelines for O2: Yes; Document: \[employer].[email or web address]\ep ic\EPIC_Reference\Order s\Respiratory Care Guidelines\CPG Oxygen 2022.pdf Respiratory Care Routine As Needed until discontinued starting 07/06/2024 [facility] Comment on above: As Needed until disc ontinued starting 07/06/2024 End: 01-01-2024 PAP TITRATION PSG (CPAP, BIPAP, ASV) PAP TITRATION PSG (CPAP, BIPAP, ASV) Procedures Routine Obstructive sleep apnea 1 Occurrences starting 12/02/2022 until 01/01/2024 [facility] Work Phone: Comment on above: 1 Occurrences starti ng 12/02/2022 until 01/01/2024 End: 07-09-2024 Prion Markers, Creutzfeldt-Osei Disease(14-3-3 Protein Tau, Total), CSF [facility] Work Phone: Comment on above: Once for 1 Occurrenc es starting 07/09/2024 until 07/09/2024 End: 07-06-2024 Pulse oximetry, spot On current oxygen flow Pulse oximetry, spot On current oxygen flow Respiratory Care Routine Once for 1 Occurrences starting 07/06/2024 until 07/06/2024 [employer] Work Phone: Comment on above: Once for 1 Occurrenc es starting 07/06/2024 until 07/06/2024 Removal impacted cer umen irrigation/lvg unilat AMBULATORY EAR LAVAGE/IRRIGATION Procedures Routine Bilateral impacted cerumen Ordered: 04/22/2022 [facility] Work Phone: Comment on above: Ordered: 04/22/2022 TOURTELLOTTE CSF TOURTELLOTTE CS F Lab Routine Memory loss Ordered: 08/11/2022 [facility] Work Phone: Comment on above: Ordered: 08/11/2022 [facility] Immunizations Immunization Date Immunization Notes Care Provider Genna amaro 11-24-2019 tetanus toxoid, redu zenia diphtheria toxoid, and acellular pertussis vaccine, adsorbed Kelly Johnson [facility] Payers Date Payer Category Payer Medicare DEVOTED MEDICARE DEVOTED HEALTH [place] PPO [id number] 2024-Present [phone] [address] SHREYA WILDER [id number] PPO [id number] 2024 Medicare HMO DEVOTED HEALTH M EDICARE ADVANTAGE [id number] 2024 Medicare [id number] 2024 Self-pay 2024 Unknown [id number] 2024 Unknown [id number] 2021 Unknown [id number] [id number]. [id number] 1965 Unknown [id number] 2.16.840.1.642261.3.579.2.647 1965 Unknown [id number] 2.16.840.1.784818.3.579.2.647 1965 Unknown [id number] 2.16.840.1.587478.3.579.2.593 1965 Unknown [id number] 2.16.840.1.870739.3.579.2.593 1965 Unknown [id number] 2.16.840.1.750959.3.579.2.593 1965 Unknown [id number] 2.16.840.1.562070.3.579.2.128 1965 Unknown [id number] 2.16.840.1.516480.3.579.2.128 1965 Unknown [id number] 2.16.840.1.587065.3.579.2.1285 1965 Unknown [id number] 2.16.840.1.100071.3.579.2.1285 1965 Unknown [id number] 2.16.840.1.905104.3.579.2.128 1965 Unknown [id number] 2.16.840.1.427350.3.579.2.128 1965 Unknown [id number] 2.16.840.1.066840.3.579.2.1285 1965 Unknown [id number] 2.16.840.1.123114.3.579.2.128 1965 Unknown [id number] 2.16.840.1.485555.3.579.2.727 1965 Unknown [id number] 2.16.840.1.739618.3.579.2.727 1965 Unknown [id number] 2.16.840.1.647795.3.579.2.7 1965 Unknown [id number] 2.16.840.1.781961.3.579.2.128 1965 Unknown [id number] 2.16.840.1.964316.3.579.2.128 1965 Unknown [id number] 2.16.840.1.104158.3.579.2.1286 1965 Unknown [id number] 2.16.840.1.005980.3.579.2.1286 1965 Unknown [id number] 2.16.840.1.809701.3.579.2.1286 1965 Unknown [id number] 2.16.840.1.253848.3.579.2.1286 1965 Unknown [id number] 2.16.840.1.002386.3.579.2.1286 1965 Unknown [id number] 2.16.840.1.941259.3.579.2.1286 1959 Unknown [id number] 1959 Unknown [id number] Unknown [id number] 2.16.840.1.067151.3.579.2.531 Unknown [id number] 2.16.840.1.465451.3.579.2.531 Social History Date Type Detail Facility Start: 09-12-2018 End: 04-22-2022 Tobacco smoking status NHIS Never smoked tobacco [facility] Start: 09-12-2018 End: 04-22-2022 Tobacco use and exposure Smokeless tobacco non-user [facility] Start: 04-22-2022 End: 10-12-2022 Alcohol intake Ex-drinker (finding) [facility] Start: 1965 Sex Assigned At Not on file C [facility] Start: 04-12-2022 End: 05-07-2022 Exposure to SARS-CoV-2 (event) Not sure [facility] Start: 07-31-2020 End: 10-12-2022 History of Social function [facility] Start: 07-31-2020 End: 10-12-2022 Tobacco use panel [facility] Adult Depression Screening Assessment 2 [facility] Start: 1965 Sex Assigned At Male F [facility] Start: 07-11-2024 End: 07-17-2024 Alcoholic beverage intake Current non-drinker of alcohol (finding) [facility] Start: 01-23-2015 Sex Male (finding) [facility] [employer] Medical Equipment Procedure Code Equipment Code Equipment Origin al Text Equipment Identifier Dates Start: 09-07-2018 End: 07-22-2024 Goals Date Patient Goal Desired Activity /State Personal health goal Comment on above: Formatting of this n ote might be different from the original. Evaluation of progress towards goal: TBD-pending PT/OT eval Personal health goal Comment on above: Formatting of this n ote might be different from the original. Evaluation of progress towards goal: TBI center vs [facility] Functional Status Date Assessment Result Facility 06-21-2024 Functional Status No [facility] 01-11-2024 Functional Status N/A [facility] Mental Status Date Assessment Result [facility] Clinical Notes 07-24-2020 to 07-22-2024 Ethel Martinez RN - 07/22/2024 10:22 AM ESTPlan of Care - Ethel Martinez RN - 07/22/2024 10:22 AM ESTPlan of Care - Ethel Martinez RN - 07/22/2024 10:22 AM Karsten Martinez RN - 07/22/2024 10:22 AM EST Note Date & Type Note Facility 07-22-2024 Nurse Note AVS discussed with patient and family, no further questions about discharge. No further needs identified. Patient taken downstairs by wheelchair to be driven home by . [facility] 07-22-2024 Plan of care note Problem: Safety Goal: Patient will be injury free during hospitalization Description: INTERVENTIONS: 1. Assess patient's risk for falls and implement fall prevention plan of care per policy 2. Provide and maintain a safe environment 3. Proper use of double Identifiers 4. Medication administration using the 5 rights 5. Hand hygiene 6. Specimens are labeled at the bedside 7. Instruct patient/ patient passenger relations representative about use of safety devices 8. Include patient/ patient passenger relations representative in decisions related to safety Outcome: Adequate for Discharge Problem: Knowledge Deficit Goal: Patient/patient passenger relations representative demonstrates understanding of disease process, treatment plan, medications, and discharge instructions Description: INTERVENTIONS 1. Complete learning assessment and assess knowledge base 2. Provide teaching at level of understanding 3. Provide teaching via preferred learning method(s) Outcome: Adequate for Discharge Problem: Discharge Planning Goal: Discharge to post-acute care, other facility, or home with appropriate resources Description: Patient's goal is: INTERVENTIONS 1. Conduct assessment to determine patient/family and health care team treatment goals, and need for post-acute services based on payer coverage, community resources, and patient preferences, and barriers to discharge 2. Coordinate with Social work, Care Navigation, and Utilization Review to arrange appropriate level of services according to patient's needs based on patient preference and payer coverage in collaboration with the physician and health care team 3. Address psychosocial, clinical, and financial barriers to discharge as identified in assessment in conjunction with the patient/family and health care team 4. Consult appropriate ancillary services (i.e.. PT/OT/ST, etc) as needed 5. Communicate with and update the patient/family, physician, and health care team regarding progress on the discharge plan 6. Identify discharge learning needs (meds, wound care, etc). 7. Arrange for needed discharge transportation as appropriate Outcome: Adequate for Discharge Problem: Neurological Deficit Goal: Neurological status is stable or improving Description: Patient's goal is: INTERVENTIONS 1. Complete Neurological assessment as indicated/ordered 2. Initiate measures to prevent increased intracranial pressure 3. Monitor and assess patient's level of consciousness, motor function, sensory function, and level of assistance needed for ADLs 4. Monitor and report changes from baseline 5. Maintain blood pressure and fluid volume within ordered parameters to optimize cerebral perfusion and minimize risk of hemorrhage 6. Monitor labs and diagnostic tests 7. Administer anti-seizure medications as ordered 8. Maintain airway, patient safety and administer oxygen as ordered 9. Monitor patient for seizure activity, document and report duration and description of seizure to LIP 10. If seizure occurs, turn patient to side and suction secretions as needed 11. Reorient patient post seizure 12. Seizure pads on all 4 side rails 13. Instruct patient/family to notify RN of any seizure activity 14. Instruct patient/family to call for assistance with activity based on assessment 15. Utilize bleeding precautions if thrombolytic given Outcome: Adequate for Discharge Problem: Moderate - High Risk Fall Score Description: Gallegos Fall Score of =/> [address] [facility] Assessment Goal: Patient should be free from fall Description: Interventions: 1. [place] to environment 2. Hourly rounds addressing the 4 P's (Pain, Positioning, Possessions, Potty) 3. Clear area of hazards (spills, clutter, electrical cords, unnecessary equipment) 4. Place equipment (bed & TV controls, call light, phone, urinal) within reach 5. Encourage patient to wear glasses and hearing aides as appropriate 6. Maintain bed in lowest position 7. Lock wheels on bed/wheelchair 8. Provide adequate lighting, including night light 9. Assess need for additional bedding, food/fluids, pain med's prior to sleep/routinely 10. Provide gripper slippers or personal non-skid footwear 11. Teach patient and patient passenger relations representative to maintain environment for safety and engage in all aspects of fall prevention program 12. Remind patient to call for help before getting out of bed 13. Initiate bed/chair/exit alarms supportive devices as appropriate, (chair wedge, no-skid floor mat, raised edge mattress, hip protectors) 14. Locate patient bed assignment for optimal visualization 15. Evaluate and identify Safe Patient Handling Equipment needs 16. Provide supervision when out of bed or chair 17. Utilize gait belt as needed to assist with ambulation 18. Place adaptive equipment (cane, walker) within reach 19. Request patient passenger relations representative bring adaptive equipment/mobility aids from home or obtain and provide as needed 20. Consult pharmacy regarding effects of med's affecting mobility, cognition, and alternatives 21. Obtain physician order for PT if risk factors associated with mobility are present 22. Obtain physician order for OT as appropriate 23. Utilize diversional activities 24. Educate patient and patient passenger relations representative how to maintain a safe environment during visitation times (notify nurse prior to leaving bedside) 25. Consider appropriateness of medical or non-medical reception specialist 26. Set up voiding schedule as appropriate (every 2 hours) Outcome: Adequate for Discharge -[facility] [employer] [facility] 07-22-2024 Miscellaneous Notes Problem: Safety Goal: Patient will be injury free during hospitalization Description: INTERVENTIONS: 1. Assess patient's risk for falls and implement fall prevention plan of care per policy 2. Provide and maintain a safe environment 3. Proper use of double Identifiers 4. Medication administration using the 5 rights 5. Hand hygiene 6. Specimens are labeled at the bedside 7. Instruct patient/ patient passenger relations representative about use of safety devices 8. Include patient/ patient passenger relations representative in decisions related to safety Outcome: Adequate for Discharge Problem: Knowledge Deficit Goal: Patient/patient passenger relations representative demonstrates understanding of disease process, treatment plan, medications, and discharge instructions Description: INTERVENTIONS 1. Complete learning assessment and assess knowledge base 2. Provide teaching at level of understanding 3. Provide teaching via preferred learning method(s) Outcome: Adequate for Discharge Problem: Discharge Planning Goal: Discharge to post-acute care, other facility, or home with appropriate resources Description: Patient's goal is: INTERVENTIONS 1. Conduct assessment to determine patient/family and health care team treatment goals, and need for post-acute services based on payer coverage, community resources, and patient preferences, and barriers to discharge 2. Coordinate with Social work, Care Navigation, and Utilization Review to arrange appropriate level of services according to patient's needs based on patient preference and payer coverage in collaboration with the physician and health care team 3. Address psychosocial, clinical, and financial barriers to discharge as identified in assessment in conjunction with the patient/family and health care team 4. Consult appropriate ancillary services (i.e.. PT/OT/ST, etc) as needed 5. Communicate with and update the patient/family, physician, and health care team regarding progress on the discharge plan 6. Identify discharge learning needs (meds, wound care, etc). 7. Arrange for needed discharge transportation as appropriate Outcome: Adequate for Discharge Problem: Neurological Deficit Goal: Neurological status is stable or improving Description: Patient's goal is: INTERVENTIONS 1. Complete Neurological assessment as indicated/ordered 2. Initiate measures to prevent increased intracranial pressure 3. Monitor and assess patient's level of consciousness, motor function, sensory function, and level of assistance needed for ADLs 4. Monitor and report changes from baseline 5. Maintain blood pressure and fluid volume within ordered parameters to optimize cerebral perfusion and minimize risk of hemorrhage 6. Monitor labs and diagnostic tests 7. Administer anti-seizure medications as ordered 8. Maintain airway, patient safety and administer oxygen as ordered 9. Monitor patient for seizure activity, document and report duration and description of seizure to LIP 10. If seizure occurs, turn patient to side and suction secretions as needed 11. Reorient patient post seizure 12. Seizure pads on all 4 side rails 13. Instruct patient/family to notify RN of any seizure activity 14. Instruct patient/family to call for assistance with activity based on assessment 15. Utilize bleeding precautions if thrombolytic given Outcome: Adequate for Discharge Problem: Moderate - High Risk Fall Score Description: Gallegos Fall Score of =/> [address] [facility] Assessment Goal: Patient should be free from fall Description: Interventions: 1. [place] to environment 2. Hourly rounds addressing the 4 P's (Pain, Positioning, Possessions, Potty) 3. Clear area of hazards (spills, clutter, electrical cords, unnecessary equipment) 4. Place equipment (bed & TV controls, call light, phone, urinal) within reach 5. Encourage patient to wear glasses and hearing aides as appropriate 6. Maintain bed in lowest position 7. Lock wheels on bed/wheelchair 8. Provide adequate lighting, including night light 9. Assess need for additional bedding, food/fluids, pain med's prior to sleep/routinely 10. Provide gripper slippers or personal non-skid footwear 11. Teach patient and patient passenger relations representative to maintain environment for safety and engage in all aspects of fall prevention program 12. Remind patient to call for help before getting out of bed 13. Initiate bed/chair/exit alarms supportive devices as appropriate, (chair wedge, no-skid floor mat, raised edge mattress, hip protectors) 14. Locate patient bed assignment for optimal visualization 15. Evaluate and identify Safe Patient Handling Equipment needs 16. Provide supervision when out of bed or chair 17. Utilize gait belt as needed to assist with ambulation 18. Place adaptive equipment (cane, walker) within reach 19. Request patient passenger relations representative bring adaptive equipment/mobility aids from home or obtain and provide as needed 20. Consult pharmacy regarding effects of med's affecting mobility, cognition, and alternatives 21. Obtain physician order for PT if risk factors associated with mobility are present 22. Obtain physician order for OT as appropriate 23. Utilize diversional activities 24. Educate patient and patient passenger relations representative how to maintain a safe environment during visitation times (notify nurse prior to leaving bedside) 25. Consider appropriateness of medical or non-medical reception specialist 26. Set up voiding schedule as appropriate (every 2 hours) Outcome: Adequate for Discharge Problem: Safety Goal: Patient will be injury free during hospitalization Description: INTERVENTIONS: 1. Assess patient's risk for falls and implement fall prevention plan of care per policy 2. Provide and maintain a safe environment 3. Proper use of double Identifiers 4. Medication administration using the 5 rights 5. Hand hygiene 6. Specimens are labeled at the bedside 7. Instruct patient/ patient passenger relations representative about use of safety devices 8. Include patient/ patient passenger relations representative in decisions related to safety Outcome: Progressing Note: Evaluation of progress towards goal: pt remains free from injury. Family at bedside. Problem: Knowledge Deficit Goal: Patient/patient passenger relations representative demonstrates understanding of disease process, treatment plan, medications, and discharge instructions Description: INTERVENTIONS 1. Complete learning assessment and assess knowledge base 2. Provide teaching at level of understanding 3. Provide teaching via preferred learning method(s) Outcome: Progressing Note: Evaluation of progress towards goal: pt significant other states understanding of care plan and discharge Problem: Discharge Planning Goal: Discharge to post-acute care, other facility, or home with appropriate resources Description: Patient's goal is: INTERVENTIONS 1. Conduct assessment to determine patient/family and health care team treatment goals, and need for post-acute services based on payer coverage, community resources, and patient preferences, and barriers to discharge 2. Coordinate with Social work, Care Navigation, and Utilization Review to arrange appropriate level of services according to patient's needs based on patient preference and payer coverage in collaboration with the physician and health care team 3. Address psychosocial, clinical, and financial barriers to discharge as identified in assessment in conjunction with the patient/family and health care team 4. Consult appropriate ancillary services (i.e.. PT/OT/ST, etc) as needed 5. Communicate with and update the patient/family, physician, and health care team regarding progress on the discharge plan 6. Identify discharge learning needs (meds, wound care, etc). 7. Arrange for needed discharge transportation as appropriate Outcome: Progressing Note: Evaluation of progress towards goal: discharge orders in place and pt to dc home later today with family care and outpt rehab services Problem: Neurological Deficit Goal: Neurological status is stable or improving Description: Patient's goal is: INTERVENTIONS 1. Complete Neurological assessment as indicated/ordered 2. Initiate measures to prevent increased intracranial pressure 3. Monitor and assess patient's level of consciousness, motor function, sensory function, and level of assistance needed for ADLs 4. Monitor and report changes from baseline 5. Maintain blood pressure and fluid volume within ordered parameters to optimize cerebral perfusion and minimize risk of hemorrhage 6. Monitor labs and diagnostic tests 7. Administer anti-seizure medications as ordered 8. Maintain airway, patient safety and administer oxygen as ordered 9. Monitor patient for seizure activity, document and report duration and description of seizure to LIP 10. If seizure occurs, turn patient to side and suction secretions as needed 11. Reorient patient post seizure 12. Seizure pads on all 4 side rails 13. Instruct patient/family to notify RN of any seizure activity 14. Instruct patient/family to call for assistance with activity based on assessment 15. Utilize bleeding precautions if thrombolytic given Outcome: Adequate for Discharge Note: Evaluation of progress towards goal: neurological status is stable Problem: Moderate - High Risk Fall Score Description: Gallegos Fall Score of =/> [address] [facility] Assessment Goal: Patient should be free from fall Description: Interventions: 1. [place] to environment 2. Hourly rounds addressing the 4 P's (Pain, Positioning, Possessions, Potty) 3. Clear area of hazards (spills, clutter, electrical cords, unnecessary equipment) 4. Place equipment (bed & TV controls, call light, phone, urinal) within reach 5. Encourage patient to wear glasses and hearing aides as appropriate 6. Maintain bed in lowest position 7. Lock wheels on bed/wheelchair 8. Provide adequate lighting, including night light 9. Assess need for additional bedding, food/fluids, pain med's prior to sleep/routinely 10. Provide gripper slippers or personal non-skid footwear 11. Teach patient and patient passenger relations representative to maintain environment for safety and engage in all aspects of fall prevention program 12. Remind patient to call for help before getting out of bed 13. Initiate bed/chair/exit alarms supportive devices as appropriate, (chair wedge, no-skid floor mat, raised edge mattress, hip protectors) 14. Locate patient bed assignment for optimal visualization 15. Evaluate and identify Safe Patient Handling Equipment needs 16. Provide supervision when out of bed or chair 17. Utilize gait belt as needed to assist with ambulation 18. Place adaptive equipment (cane, walker) within reach 19. Request patient passenger relations representative bring adaptive equipment/mobility aids from home or obtain and provide as needed 20. Consult pharmacy regarding effects of med's affecting mobility, cognition, and alternatives 21. Obtain physician order for PT if risk factors associated with mobility are present 22. Obtain physician order for OT as appropriate 23. Utilize diversional activities 24. Educate patient and patient passenger relations representative how to maintain a safe environment during visitation times (notify nurse prior to leaving bedside) 25. Consider appropriateness of medical or non-medical reception specialist 26. Set up voiding schedule as appropriate (every 2 hours) Outcome: Progressing Note: Evaluation of progress towards goal: pt remains free from falls. Fall precautions in place and family at bedside Problem: Moderate - High Risk Fall Score Description: Gallegos Fall Score of =/> 25 or [facility] Goal: Patient should be free from fall Description: Interventions: 1. [place] to environment 2. Hourly rounds addressing the 4 P's (Pain, Positioning, Possessions, Potty) 3. Clear area of hazards (spills, clutter, electrical cords, unnecessary equipment) 4. Place equipment (bed & TV controls, call light, phone, urinal) within reach 5. Encourage patient to wear glasses and hearing aides as appropriate 6. Maintain bed in lowest position 7. Lock wheels on bed/wheelchair 8. Provide adequate lighting, including night light 9. Assess need for additional bedding, food/fluids, pain med's prior to sleep/routinely 10. Provide gripper slippers or personal non-skid footwear 11. Teach patient and patient passenger relations representative to maintain environment for safety and engage in all aspects of fall prevention program 12. Remind patient to call for help before getting out of bed 13. Initiate bed/chair/exit alarms supportive devices as appropriate, (chair wedge, no-skid floor mat, raised edge mattress, hip protectors) 14. Locate patient bed assignment for optimal visualization 15. Evaluate and identify Safe Patient Handling Equipment needs 16. Provide supervision when out of bed or chair 17. Utilize gait belt as needed to assist with ambulation 18. Place adaptive equipment (cane, walker) within reach 19. Request patient passenger relations representative bring adaptive equipment/mobility aids from home or obtain and provide as needed 20. Consult pharmacy regarding effects of med's affecting mobility, cognition, and alternatives 21. Obtain physician order for PT if risk factors associated with mobility are present 22. Obtain physician order for OT as appropriate 23. Utilize diversional activities 24. Educate patient and patient passenger relations representative how to maintain a safe environment during visitation times (notify nurse prior to leaving bedside) 25. Consider appropriateness of medical or non-medical reception specialist 26. Set up voiding schedule as appropriate (every 2 hours) Outcome: Progressing Note: Evaluation of progress towards goal: pt remains free from falls. Fall precautions in place and family at bedside DISCHARGE PLANNING NOTE Roll Forming Machine Operator spoke with RN KAY Graf and with cupola charger insulation Mylena about current situation regarding appeal decision and DC plan to home with outpatient services. Roll Forming Machine Operator placed a call to the who was in the patient's room due to the questions she had re: the discharge plan. Roll Forming Machine Operator spoke with , Kari on 07/21/24 at 1325. Roll Forming Machine Operator reviewed Eduardo's DC Appeal Determination Notification with the who confirmed that she had received a voicemail from [facility] this morning. Roll Forming Machine Operator explained that Eduardo had agreed with the termination of hospital services after having reviewed the uploaded clinical documents from this hospitalization that engineering writer had sent to them yesterday. expressed verbal understanding to of Eduardo's decision. Roll Forming Machine Operator explained that patient's financial liability would begin at Noon on 07/22/24 and offered our care navigation assistance with obtaining transportation to home. had questions about why referrals were not made to fci facilities that family had now chosen, [facility] ([place]) and [facility] ([facility]). Roll Forming Machine Operator explained to the that the patient did not meet the clinical criteria this time for a fci/rehab facility level of care and reminded her that a discussion about this took place this past week/yesterday with the treatment team. explained that she never agreed to take her home and her and her family now want SNF placement. Roll Forming Machine Operator continued to explain to the process of SNF placement including clinical qualifications necessary for acceptance as well as a pre authorization approval from patient's [employer] insurance plan. stated she cannot take the patient home and that he needs rehabilitation for his TBI which is causing him to not remember who she is and stated this was not where he was at prior to bringing him to the hospital. Roll Forming Machine Operator offered supportive listening to the and also offered for her to connect with patient's PCP, Dr. Lopez after she gets her home for resources. Roll Forming Machine Operator also discussed the outpatient TBI clinic appointment that was being discussed yesterday and that information would be included on patient's after visit summary. Roll Forming Machine Operator explained that if was not going to make arrangements to take patient home by maylin on 07/22, that patient's financial responsibility of $2640.00 per day would begin. expressed verbal understanding to engineering writer. Roll Forming Machine Operator emailed financial responsibility form with instruction to cup[employer] charger [employer] (and cce'd today's RN Lesia Felton for awareness) for bedside delivery today. is aware of pending paper copy delivery of this form. - NELLI GLEZ MINE ENVIRONMENTAL ENGINEER CARE NAVIGATION 07/21/24 2:11 PM DISCHARGE PLANNING NOTE We have received DC Appeal Determination Notification from Daryl and Daryl has agreed with the termination of services. Beneficiary liability begins 07.22.2024 by Maylin. Beneficiary and/or beneficiary passenger relations representative were to be notified of determination via phone call. [facility] rec'd at 1032 and letter rec'd [phone] were received by engineering writer via fax. Roll Forming Machine Operator uploaded documents to document list. Documentation updated. Roll Forming Machine Operator received forwarded voice mail 07/21/24 at 1032 from Eduardo Duran's Immediate Advocacy Department , who had left message on Care Navigation Department voice mail at 1617 on 07/20/24, stating he was representing patient's family who had called [facility] asking 1) why denial reason wasn't given re: transfer to another care facility and 2) if the preferred facility by family was able to accept. Reference Case # given from Nica [id number]. Roll Forming Machine Operator attempted to call Nica back on 07/21/24 at 1214 and engineering writer rec'd auto message from [facility] which stated only live phone calls with [facility] are Tuesday thru Tuesday. Roll Forming Machine Operator left voicemail citing reference case # [id number]. Roll Forming Machine Operator stated reason for return phone call and requested call back from Nica. - NELLI GLEZ MINE ENVIRONMENTAL ENGINEER CARE NAVIGATION 07/21/24 12:37 PM Problem: Safety Goal: Patient will be injury free during hospitalization Description: INTERVENTIONS: 1. Assess patient's risk for falls and implement fall prevention plan of care per policy 2. Provide and maintain a safe environment 3. Proper use of double Identifiers 4. Medication administration using the 5 rights 5. Hand hygiene 6. Specimens are labeled at the bedside 7. Instruct patient/ patient passenger relations representative about use of safety devices 8. Include patient/ patient passenger relations representative in decisions related to safety Outcome: Progressing Note: Evaluation of progress towards goal: Pain will be adequately controlled to allow for rest and adl's Problem: Knowledge Deficit Goal: Patient/patient passenger relations representative demonstrates understanding of disease process, treatment plan, medications, and discharge instructions Description: INTERVENTIONS 1. Complete learning assessment and assess knowledge base 2. Provide teaching at level of understanding 3. Provide teaching via preferred learning method(s) Outcome: Progressing Note: Evaluation of progress towards goal: pt. Will have knowledge of disease process and treatment by discharge Problem: Discharge Planning Goal: Discharge to post-acute care, other facility, or home with appropriate resources Description: Patient's goal is: INTERVENTIONS 1. Conduct assessment to determine patient/family and health care team treatment goals, and need for post-acute services based on payer coverage, community resources, and patient preferences, and barriers to discharge 2. Coordinate with Social work, Care Navigation, and Utilization Review to arrange appropriate level of services according to patient's needs based on patient preference and payer coverage in collaboration with the physician and health care team 3. Address psychosocial, clinical, and financial barriers to discharge as identified in assessment in conjunction with the patient/family and health care team 4. Consult appropriate ancillary services (i.e.. PT/OT/ST, etc) as needed 5. Communicate with and update the patient/family, physician, and health care team regarding progress on the discharge plan 6. Identify discharge learning needs (meds, wound care, etc). 7. Arrange for needed discharge transportation as appropriate Outcome: Progressing Note: Evaluation of progress towards goal: tbd pending facility acceptance Problem: Neurological Deficit Goal: Neurological status is stable or improving Description: Patient's goal is: INTERVENTIONS 1. Complete Neurological assessment as indicated/ordered 2. Initiate measures to prevent increased intracranial pressure 3. Monitor and assess patient's level of consciousness, motor function, sensory function, and level of assistance needed for ADLs 4. Monitor and report changes from baseline 5. Maintain blood pressure and fluid volume within ordered parameters to optimize cerebral perfusion and minimize risk of hemorrhage 6. Monitor labs and diagnostic tests 7. Administer anti-seizure medications as ordered 8. Maintain airway, patient safety and administer oxygen as ordered 9. Monitor patient for seizure activity, document and report duration and description of seizure to LIP 10. If seizure occurs, turn patient to side and suction secretions as needed 11. Reorient patient post seizure 12. Seizure pads on all 4 side rails 13. Instruct patient/family to notify RN of any seizure activity 14. Instruct patient/family to call for assistance with activity based on assessment 15. Utilize bleeding precautions if thrombolytic given Outcome: Progressing Note: Evaluation of progress towards goal: remains stable goal of baseline Problem: Moderate - High Risk Fall Score Description: [place] Fall Score of =/> [address] [facility] Assessment Goal: Patient should be free from fall Description: Interventions: 1. [place] to environment 2. Hourly rounds addressing the 4 P's (Pain, Positioning, Possessions, Potty) 3. Clear area of hazards (spills, clutter, electrical cords, unnecessary equipment) 4. Place equipment (bed & TV controls, call light, phone, urinal) within reach 5. Encourage patient to wear glasses and hearing aides as appropriate 6. Maintain bed in lowest position 7. Lock wheels on bed/wheelchair 8. Provide adequate lighting, including night light 9. Assess need for additional bedding, food/fluids, pain med's prior to sleep/routinely 10. Provide gripper slippers or personal non-skid footwear 11. Teach patient and patient passenger relations representative to maintain environment for safety and engage in all aspects of fall prevention program 12. Remind patient to call for help before getting out of bed 13. Initiate bed/chair/exit alarms supportive devices as appropriate, (chair wedge, no-skid floor mat, raised edge mattress, hip protectors) 14. Locate patient bed assignment for optimal visualization 15. Evaluate and identify Safe Patient Handling Equipment needs 16. Provide supervision when out of bed or chair 17. Utilize gait belt as needed to assist with ambulation 18. Place adaptive equipment (cane, walker) within reach 19. Request patient passenger relations representative bring adaptive equipment/mobility aids from home or obtain and provide as needed 20. Consult pharmacy regarding effects of med's affecting mobility, cognition, and alternatives 21. Obtain physician order for PT if risk factors associated with mobility are present 22. Obtain physician order for OT as appropriate 23. Utilize diversional activities 24. Educate patient and patient passenger relations representative how to maintain a safe environment during visitation times (notify nurse prior to leaving bedside) 25. Consider appropriateness of medical or non-medical reception specialist 26. Set up voiding schedule as appropriate (every 2 hours) Outcome: Progressing Note: Evaluation of progress towards goal: fall bundle Problem: Safety Goal: Patient will be injury free during hospitalization Description: INTERVENTIONS: 1. Assess patient's risk for falls and implement fall prevention plan of care per policy 2. Provide and maintain a safe environment 3. Proper use of double Identifiers 4. Medication administration using the 5 rights 5. Hand hygiene 6. Specimens are labeled at the bedside 7. Instruct patient/ patient passenger relations representative about use of safety devices 8. Include patient/ patient passenger relations representative in decisions related to safety Outcome: Progressing Note: Evaluation of progress towards goal: pt remains free from injury Problem: Knowledge Deficit Goal: Patient/patient passenger relations representative demonstrates understanding of disease process, treatment plan, medications, and discharge instructions Description: INTERVENTIONS 1. Complete learning assessment and assess knowledge base 2. Provide teaching at level of understanding 3. Provide teaching via preferred learning method(s) Outcome: Progressing Note: Evaluation of progress towards goal: pt understands treatment plan Problem: Discharge Planning Goal: Discharge to post-acute care, other facility, or home with appropriate resources Description: Patient's goal is: INTERVENTIONS 1. Conduct assessment to determine patient/family and health care team treatment goals, and need for post-acute services based on payer coverage, community resources, and patient preferences, and barriers to discharge 2. Coordinate with Social work, Care Navigation, and Utilization Review to arrange appropriate level of services according to patient's needs based on patient preference and payer coverage in collaboration with the physician and health care team 3. Address psychosocial, clinical, and financial barriers to discharge as identified in assessment in conjunction with the patient/family and health care team 4. Consult appropriate ancillary services (i.e.. PT/OT/ST, etc) as needed 5. Communicate with and update the patient/family, physician, and health care team regarding progress on the discharge plan 6. Identify discharge learning needs (meds, wound care, etc). 7. Arrange for needed discharge transportation as appropriate Outcome: Progressing Note: Evaluation of progress towards goal: pt has discharge orders Problem: Neurological Deficit Goal: Neurological status is stable or improving Description: Patient's goal is: INTERVENTIONS 1. Complete Neurological assessment as indicated/ordered 2. Initiate measures to prevent increased intracranial pressure 3. Monitor and assess patient's level of consciousness, motor function, sensory function, and level of assistance needed for ADLs 4. Monitor and report changes from baseline 5. Maintain blood pressure and fluid volume within ordered parameters to optimize cerebral perfusion and minimize risk of hemorrhage 6. Monitor labs and diagnostic tests 7. Administer anti-seizure medications as ordered 8. Maintain airway, patient safety and administer oxygen as ordered 9. Monitor patient for seizure activity, document and report duration and description of seizure to LIP 10. If seizure occurs, turn patient to side and suction secretions as needed 11. Reorient patient post seizure 12. Seizure pads on all 4 side rails 13. Instruct patient/family to notify RN of any seizure activity 14. Instruct patient/family to call for assistance with activity based on assessment 15. Utilize bleeding precautions if thrombolytic given Outcome: Progressing Note: Evaluation of progress towards goal: neurological status is stable Problem: Moderate - High Risk Fall Score Description: Gallegos Fall Score of =/> [address] [facility] Assessment Goal: Patient should be free from fall Description: Interventions: 1. [place] to environment 2. Hourly rounds addressing the 4 P's (Pain, Positioning, Possessions, Potty) 3. Clear area of hazards (spills, clutter, electrical cords, unnecessary equipment) 4. Place equipment (bed & TV controls, call light, phone, urinal) within reach 5. Encourage patient to wear glasses and hearing aides as appropriate 6. Maintain bed in lowest position 7. Lock wheels on bed/wheelchair 8. Provide adequate lighting, including night light 9. Assess need for additional bedding, food/fluids, pain med's prior to sleep/routinely 10. Provide gripper slippers or personal non-skid footwear 11. Teach patient and patient passenger relations representative to maintain environment for safety and engage in all aspects of fall prevention program 12. Remind patient to call for help before getting out of bed 13. Initiate bed/chair/exit alarms supportive devices as appropriate, (chair wedge, no-skid floor mat, raised edge mattress, hip protectors) 14. Locate patient bed assignment for optimal visualization 15. Evaluate and identify Safe Patient Handling Equipment needs 16. Provide supervision when out of bed or chair 17. Utilize gait belt as needed to assist with ambulation 18. Place adaptive equipment (cane, walker) within reach 19. Request patient passenger relations representative bring adaptive equipment/mobility aids from home or obtain and provide as needed 20. Consult pharmacy regarding effects of med's affecting mobility, cognition, and alternatives 21. Obtain physician order for PT if risk factors associated with mobility are present 22. Obtain physician order for OT as appropriate 23. Utilize diversional activities 24. Educate patient and patient passenger relations representative how to maintain a safe environment during visitation times (notify nurse prior to leaving bedside) 25. Consider appropriateness of medical or non-medical reception specialist 26. Set up voiding schedule as appropriate (every 2 hours) Outcome: Progressing Note: Evaluation of progress towards goal: fall precautions in place and pt remains free from falls DISCHARGE PLANNING NOTE Patient's family has appealed his discharge & we have received notification from [facility] that a DC appeal has been called in. The chart, DND form, & IMM have been successfully uploaded by engineering writer to the [facility] and successfully received by [facility]. [facility] will notify the of the patient of the appeal determination. Roll Forming Machine Operator phone called patient's & read the DND notice to her. Paper copy of the DND notice to be delivered to the patient's bedside. Roll Forming Machine Operator informed to anticipate phone call from [facility] re: determination of DC Appeal & encouraged wifeto answer the phone when [facility] calls. expressed verbal understanding of DND and the DC appeal process. - NELLI GLEZ MINE ENVIRONMENTAL ENGINEER CARE NAVIGATION 07/20/24 5:13 PM Problem: Safety Goal: Patient will be injury free during hospitalization Description: INTERVENTIONS: 1. Assess patient's risk for falls and implement fall prevention plan of care per policy 2. Provide and maintain a safe environment 3. Proper use of double Identifiers 4. Medication administration using the 5 rights 5. Hand hygiene 6. Specimens are labeled at the bedside 7. Instruct patient/ patient passenger relations representative about use of safety devices 8. Include patient/ patient passenger relations representative in decisions related to safety Outcome: Progressing Note: Evaluation of progress towards goal: Patient remains injury free at this time. Problem: Knowledge Deficit Goal: Patient/patient passenger relations representative demonstrates understanding of disease process, treatment plan, medications, and discharge instructions Description: INTERVENTIONS 1. Complete learning assessment and assess knowledge base 2. Provide teaching at level of understanding 3. Provide teaching via preferred learning method(s) Outcome: Progressing Note: Evaluation of progress towards goal: Patient is A&Ox1, reoriented when needed. Problem: Discharge Planning Goal: Discharge to post-acute care, other facility, or home with appropriate resources Description: Patient's goal is: INTERVENTIONS 1. Conduct assessment to determine patient/family and health care team treatment goals, and need for post-acute services based on payer coverage, community resources, and patient preferences, and barriers to discharge 2. Coordinate with Social work, Care Navigation, and Utilization Review to arrange appropriate level of services according to patient's needs based on patient preference and payer coverage in collaboration with the physician and health care team 3. Address psychosocial, clinical, and financial barriers to discharge as identified in assessment in conjunction with the patient/family and health care team 4. Consult appropriate ancillary services (i.e.. PT/OT/ST, etc) as needed 5. Communicate with and update the patient/family, physician, and health care team regarding progress on the discharge plan 6. Identify discharge learning needs (meds, wound care, etc). 7. Arrange for needed discharge transportation as appropriate Outcome: Progressing Note: Evaluation of progress towards goal: Patient working with care blessing for discharge plan. Problem: Neurological Deficit Goal: Neurological status is stable or improving Description: Patient's goal is: INTERVENTIONS 1. Complete Neurological assessment as indicated/ordered 2. Initiate measures to prevent increased intracranial pressure 3. Monitor and assess patient's level of consciousness, motor function, sensory function, and level of assistance needed for ADLs 4. Monitor and report changes from baseline 5. Maintain blood pressure and fluid volume within ordered parameters to optimize cerebral perfusion and minimize risk of hemorrhage 6. Monitor labs and diagnostic tests 7. Administer anti-seizure medications as ordered 8. Maintain airway, patient safety and administer oxygen as ordered 9. Monitor patient for seizure activity, document and report duration and description of seizure to LIP 10. If seizure occurs, turn patient to side and suction secretions as needed 11. Reorient patient post seizure 12. Seizure pads on all 4 side rails 13. Instruct patient/family to notify RN of any seizure activity 14. Instruct patient/family to call for assistance with activity based on assessment 15. Utilize bleeding precautions if thrombolytic given Outcome: Progressing Note: Evaluation of progress towards goal: Patient's neurological status is stable. Problem: Moderate - High Risk Fall Score Description: Gallegos Fall Score of =/> [address] [facility] Assessment Goal: Patient should be free from fall Description: Interventions: 1. [place] to environment 2. Hourly rounds addressing the 4 P's (Pain, Positioning, Possessions, Potty) 3. Clear area of hazards (spills, clutter, electrical cords, unnecessary equipment) 4. Place equipment (bed & TV controls, call light, phone, urinal) within reach 5. Encourage patient to wear glasses and hearing aides as appropriate 6. Maintain bed in lowest position 7. Lock wheels on bed/wheelchair 8. Provide adequate lighting, including night light 9. Assess need for additional bedding, food/fluids, pain med's prior to sleep/routinely 10. Provide gripper slippers or personal non-skid footwear 11. Teach patient and patient passenger relations representative to maintain environment for safety and engage in all aspects of fall prevention program 12. Remind patient to call for help before getting out of bed 13. Initiate bed/chair/exit alarms supportive devices as appropriate, (chair wedge, no-skid floor mat, raised edge mattress, hip protectors) 14. Locate patient bed assignment for optimal visualization 15. Evaluate and identify Safe Patient Handling Equipment needs 16. Provide supervision when out of bed or chair 17. Utilize gait belt as needed to assist with ambulation 18. Place adaptive equipment (cane, walker) within reach 19. Request patient passenger relations representative bring adaptive equipment/mobility aids from home or obtain and provide as needed 20. Consult pharmacy regarding effects of med's affecting mobility, cognition, and alternatives 21. Obtain physician order for PT if risk factors associated with mobility are present 22. Obtain physician order for OT as appropriate 23. Utilize diversional activities 24. Educate patient and patient passenger relations representative how to maintain a safe environment during visitation times (notify nurse prior to leaving bedside) 25. Consider appropriateness of medical or non-medical reception specialist 26. Set up voiding schedule as appropriate (every 2 hours) Outcome: Progressing Note: Evaluation of progress towards goal: Patient remains free from falls at this time. DISCHARGE PLANNING NOTE 07/30 at 12:40 Hospital follow up with Fidelina Fisher CNP [facility] TBI [address] [place] [address] Confirmed with Taylor at [facility] she did receive the updated notes (neuro, PMR, PT/OT) that were faxed and uploaded to [facility]. She is almost finishing writing it up for physician review and will call us with their determination by 10am. 9:31 am Received call from Taylor at [facility] IPR-she reviewed updated notes with certified medical transcriptionist and they remain unable to accept after our 3rd request for review. She said he is doing too well functionally, does not need OT/PT services. She said after discussion with certified medical transcriptionist their facility would be of no benefit to the patient. This information was communicated to interdisciplinary team via epic chat DISCHARGE PLANNING NOTE Sent face sheet to [facility] for hospital transfer via secure fax to # [phone] DISCHARGE PLANNING NOTE Discharge plan- awaiting responses from [facility] if they can accept. Tasked [facility] to send neuro note from yesterday to them again. Tasked CN to fax his face sheet to [facility] per physician request since she is calling them about a hospital to hospital transfer per families request. Leadership team aware. - NANCY PARRISH 07/20/24 8:19 AM Discussed patient and d/c planning with leadership team. Everyone in agreement with d/c today since per physician [facility] can not accept as a hospital transfer and [facility] has denied as well. Physician and this engineering writer spoke with patient, and sister that is present re: d/c today and that patient will be going home with outpatient ST and an appointment has been made for a TBI clinic for follow up. Provided IMM to and explained. Leadership aware. - NANCY PARRISH 07/20/24 11:29 AM DISCHARGE PLANNING NOTE Neuro Note sent to [facility] (P# [phone] ; F# [phone]) in [facility] and via [employer]. Problem: Safety Goal: Patient will be injury free during hospitalization Description: INTERVENTIONS: 1. Assess patient's risk for falls and implement fall prevention plan of care per policy 2. Provide and maintain a safe environment 3. Proper use of double Identifiers 4. Medication administration using the 5 rights 5. Hand hygiene 6. Specimens are labeled at the bedside 7. Instruct patient/ patient passenger relations representative about use of safety devices 8. Include patient/ patient passenger relations representative in decisions related to safety Outcome: Progressing Note: Evaluation of progress towards goal: Pt remains free from injury and significant other at bedside Problem: Knowledge Deficit Goal: Patient/patient passenger relations representative demonstrates understanding of disease process, treatment plan, medications, and discharge instructions Description: INTERVENTIONS 1. Complete learning assessment and assess knowledge base 2. Provide teaching at level of understanding 3. Provide teaching via preferred learning method(s) Outcome: Progressing Note: Evaluation of progress towards goal: pt significant other states understanding of treatment plan and medications Problem: Discharge Planning Goal: Discharge to post-acute care, other facility, or home with appropriate resources Description: Patient's goal is: INTERVENTIONS 1. Conduct assessment to determine patient/family and health care team treatment goals, and need for post-acute services based on payer coverage, community resources, and patient preferences, and barriers to discharge 2. Coordinate with Social work, Care Navigation, and Utilization Review to arrange appropriate level of services according to patient's needs based on patient preference and payer coverage in collaboration with the physician and health care team 3. Address psychosocial, clinical, and financial barriers to discharge as identified in assessment in conjunction with the patient/family and health care team 4. Consult appropriate ancillary services (i.e.. PT/OT/ST, etc) as needed 5. Communicate with and update the patient/family, physician, and health care team regarding progress on the discharge plan 6. Identify discharge learning needs (meds, wound care, etc). 7. Arrange for needed discharge transportation as appropriate Outcome: Progressing Note: Evaluation of progress towards goal: plan to DC to SNF when medically stable Problem: Neurological Deficit Goal: Neurological status is stable or improving Description: Patient's goal is: INTERVENTIONS 1. Complete Neurological assessment as indicated/ordered 2. Initiate measures to prevent increased intracranial pressure 3. Monitor and assess patient's level of consciousness, motor function, sensory function, and level of assistance needed for ADLs 4. Monitor and report changes from baseline 5. Maintain blood pressure and fluid volume within ordered parameters to optimize cerebral perfusion and minimize risk of hemorrhage 6. Monitor labs and diagnostic tests 7. Administer anti-seizure medications as ordered 8. Maintain airway, patient safety and administer oxygen as ordered 9. Monitor patient for seizure activity, document and report duration and description of seizure to LIP 10. If seizure occurs, turn patient to side and suction secretions as needed 11. Reorient patient post seizure 12. Seizure pads on all 4 side rails 13. Instruct patient/family to notify RN of any seizure activity 14. Instruct patient/family to call for assistance with activity based on assessment 15. Utilize bleeding precautions if thrombolytic given Outcome: Progressing Note: Evaluation of progress towards goal: neurological status stable Problem: Moderate - High Risk Fall Score Description: Gallegos Fall Score of =/> [address] [facility] Assessment Goal: Patient should be free from fall Description: Interventions: 1. [place] to environment 2. Hourly rounds addressing the 4 P's (Pain, Positioning, Possessions, Potty) 3. Clear area of hazards (spills, clutter, electrical cords, unnecessary equipment) 4. Place equipment (bed & TV controls, call light, phone, urinal) within reach 5. Encourage patient to wear glasses and hearing aides as appropriate 6. Maintain bed in lowest position 7. Lock wheels on bed/wheelchair 8. Provide adequate lighting, including night light 9. Assess need for additional bedding, food/fluids, pain med's prior to sleep/routinely 10. Provide gripper slippers or personal non-skid footwear 11. Teach patient and patient passenger relations representative to maintain environment for safety and engage in all aspects of fall prevention program 12. Remind patient to call for help before getting out of bed 13. Initiate bed/chair/exit alarms supportive devices as appropriate, (chair wedge, no-skid floor mat, raised edge mattress, hip protectors) 14. Locate patient bed assignment for optimal visualization 15. Evaluate and identify Safe Patient Handling Equipment needs 16. Provide supervision when out of bed or chair 17. Utilize gait belt as needed to assist with ambulation 18. Place adaptive equipment (cane, walker) within reach 19. Request patient passenger relations representative bring adaptive equipment/mobility aids from home or obtain and provide as needed 20. Consult pharmacy regarding effects of med's affecting mobility, cognition, and alternatives 21. Obtain physician order for PT if risk factors associated with mobility are present 22. Obtain physician order for OT as appropriate 23. Utilize diversional activities 24. Educate patient and patient passenger relations representative how to maintain a safe environment during visitation times (notify nurse prior to leaving bedside) 25. Consider appropriateness of medical or non-medical reception specialist 26. Set up voiding schedule as appropriate (every 2 hours) Outcome: Progressing Note: Evaluation of progress towards goal: pt remains free from falls and fall precautions are in place DISCHARGE PLANNING NOTE Updates to [facility] (P# [phone] ; F# [phone]) Occupational Therapy Treatment Discharge Recommendations OT Recommendations : Inpatient Rehab 6 Clicks: Daily Activity Putting on and taking off regular lower body clothing?: A little Bathing (including washing, rinsing, drying)?: A little Toileting, which includes using toilet, bedpan or urinal?: A little Putting on and taking off regular upper body clothing?: A little Taking care of personal grooming such as brushing teeth?: A little Eating meals?: None Scoring Daily Activity Raw Score: 19 CMS G Code Modifier: CK Therapy Plan Need for skilled Occupational Therapy to address deficits in ADL independence and functional mobility due to a status decline resulting from 07/19/24 1403 UE ROM UE ROM exercises performed? No OT Treatment/Interventions: ADL retraining, Cognitive reorientation, Balance, Bed mobility, Functional transfer training, Patient/family training, Home management, Functional activities, Equipment eval/education OT Frequency: 3-4days/week Assessment Patient Assessment Patient Response to Treatment: Progressing toward goals Visit RN Communication: Yes Medical Record Reviewed: Yes OT Type of Visit: Treatment Precautions Activity: ok for therapy per MARCI Rothman Equipment: gait belt Telemetry/Huc: No Oxygen Used: room air Other: fall risk, recent TBI with behavioral changes, Pain Assessment Pain Assessment: No/denies pain ADL / IADL Other: completed prior to tx; Home Management - IADL Other: completed prior to tx; Hearing / Speech / Vision Hearing: Within Functional Limits Speech: Within Functional Limits Cognition Overall Cognitive Status: Exceptions to Within Functional Limits Arousal/Alertness: Appropriate responses to stimuli Following Commands: Follows one step commands with repetition Interfering Components: Processing speed, Working memory Other: engaged in various cognitive tasks to increase processing speed, problem solving and working memory; pt able to write name w/out initial cuing, not able to write cat, dog w/request however able to write the word down w/cues for each letter, able to read short questions however unsure of level of comprehension, pt able to provide sister's name (who is in the room) when asked; required prompting to come up w/mother's name; educated sister on playing [place] songs from pt's younger years, to encourage increased activity and interactions w/higher energy during the day to promote the ability to process and problem solve information; Bed Mobility Supine to Sit: Stand by assist (for safety awareness only otherwise I) Other: pt up in chair after tx Transfers Sit to Stand: Standby assist Stand to Sit: Standby assist Gait Gait Assistance: Contact guard assist Assistive Device: None Gait Distance: 70ftx2 and 15ftx2 Limiting Factors to Gait: Decreased safety, Cognition/difficulty following directions Balance Sitting Balance: Static: Good Sitting Balance: Dynamic: Good Standing Balance: Static: Fair Standing Balance: Dynamic: Fair Other: stood about 10mins while engaged in various dynamic reach and dynamic standing activities to increase steadiness and ablity to right self and problem solve when distracted; no major LOB however conts to require cuing to problem solve and to identify obstacles Activity Tolerance Endurance: Tolerates >30 minutes activity with rest breaks Plan Occupational Therapy Care Plan Occupational Therapy Care Plan (Active) Template: OT - Occupational Therapy Problem: Activity Tolerance Dates: Start: 07/13/24 Disciplines: OT Goal: No limitations to activity tolerance Dates: Start: 07/13/24 Expected End: 08/13/24 Description: Goal Description: Disciplines: OT Outcomes Date/Time User Outcome 07/19/24 1445 Yoanna Guille-Mahoney, SHELLF[place] HARVESTER/L Progressing 07/17/24 1439 Yoanna Guille-Mahoney, KWADWO/L Progressing Problem: Bathing LB Dates: Start: 07/13/24 Disciplines: OT Goal: Patient will perform bathing LB Independently Dates: Start: 07/13/24 Expected End: 08/13/24 Description: Goal Description: Disciplines: OT Problem: Bathing UB Dates: Start: 07/13/24 Disciplines: OT Goal: Patient will perform bathing UB Independently Dates: Start: 07/13/24 Expected End: 08/13/24 Description: Goal Description: Disciplines: OT Problem: Cognition Dates: Start: 07/13/24 Disciplines: OT Goal: Improve cognition Dates: Start: 07/13/24 Expected End: 08/13/24 Description: Patient will demonstrate good safety, judgement and ability to independently execute steps necessary for ADL tasks. Disciplines: OT Outcomes Date/Time User Outcome 07/19/24 1445 Yoanna Guille-Mahoney, SHELLF[place] HARVESTER/L Progressing 07/17/24 1439 Yoanna Guille-Mahoney, SHELLF[place] HARVESTER/L Progressing Problem: Dressing LB Dates: Start: 07/13/24 Disciplines: OT Goal: Patient will perform dressing LB Independently Dates: Start: 07/13/24 Expected End: 08/13/24 Description: Goal Description: Disciplines: OT Problem: Dressing UB Dates: Start: 07/13/24 Disciplines: OT Goal: Patient will perform dressing UB Independently Dates: Start: 07/13/24 Expected End: 08/13/24 Description: Goal Description: Disciplines: OT Problem: Functional Mobility Dates: Start: 07/13/24 Disciplines: OT Goal: Patient will perform functional mobility Independently Dates: Start: 07/13/24 Expected End: 08/13/24 Description: Goal Description: Disciplines: OT Outcomes Date/Time User Outcome 07/19/24 1445 Yoanna Han-Mahoney, [place]LLF[place] HARVESTER/L Progressing 07/17/24 1439 Yoanna Han-Mahoney, KWADWO/L Progressing Problem: Grooming Dates: Start: 07/13/24 Disciplines: OT Goal: Patient will perform grooming Independently Dates: Start: 07/13/24 Expected End: 08/13/24 Description: Goal Description: Disciplines: OT Outcomes Date/Time User Outcome 07/17/24 1439 Yoanna Han-Mahoney, SHELLF[place] HARVESTER/L Progressing Problem: Standing Balance Dates: Start: 07/13/24 Disciplines: OT Goal: Improve balance to normal Dates: Start: 07/13/24 Expected End: 08/13/24 Description: Normal dynamic balance. Disciplines: OT Outcomes Date/Time User Outcome 07/19/24 1445 Yoanna Han-Mahoney, KWADWO/L Progressing 07/17/24 1439 Yoanna Han-Mahoney, KWADWO/L Progressing Problem: Toilet Transfers Dates: Start: 07/13/24 Disciplines: OT Goal: Patient will perform toilet transfers Independently Dates: Start: 07/13/24 Expected End: 08/13/24 Description: Goal Description: Disciplines: OT Outcomes Date/Time User Outcome 07/17/24 1439 Yoanna Han-Mahoney, KWADWO/L Progressing Problem: Toileting Dates: Start: 07/13/24 Disciplines: OT Goal: Patient will perform toileting Independently Dates: Start: 07/13/24 Expected End: 08/13/24 Description: Goal Description: Disciplines: OT Outcomes Date/Time User Outcome 07/17/24 1439 Yoanna Han-Mahoney, SHELL[place] HARVESTER/L Progressing Problem: Transfers Dates: Start: 07/13/24 Disciplines: OT Goal: Patient will perform transfers Independently Dates: Start: 07/13/24 Expected End: 08/13/24 Description: Goal Description: Disciplines: OT Outcomes Date/Time User Outcome 07/19/24 1445 EN Hogan Progressing 07/17/24 1439 EN Hogan Progressing Occupational Therapy Care Plan (Resolved) There are no resolved problems. Principal Problem: Dementia with behavioral disturbance ([facility]) Active Problems: Altered mental status Status post colostomy, follow-up exam ([facility] [place] Cosigned by MAYNOR Dillon/Jerome at 07/19/2024 3:13 PM EST Associated attestation - Veronica Gorman OTR/Jerome - 07/19/2024 3:13 PM EST I have reviewed and agree with this note and education documentation for this visit. Physical Therapy Treatment Discharge Recommendations PT Recommendations: Inpatient Rehab Inpatient Rehab Criteria: All inpatient rehab criteria expected to be met 6 Clicks: Basic Mobility Turning from your back to your side while in a flat bed without using bed rails?: None Moving from lying on your back to sitting on side of flat bed without using bed rails?: None Moving to and from bed to a chair (including w/c)?: A little Standing up from a chair using your arms (e.g. w/c or bedside chair)?: A little To walk in hospital room?: A little Climbing 3-5 steps with a railing?: A little Scoring 6 Clicks: Basic Mobility Raw Score: [address] [facility] G Code Modifier: CJ Patient Response to Treatment: Slow progress, decreased activity tolerance Assessment Patient Assessment Patient Response to Treatment: Slow progress, decreased activity tolerance Visit RN Communication: Yes Medical Record Reviewed: Yes PT Type of Visit: Treatment Precautions Activity: ok for therapy per MARCI Rothman Equipment: gait belt Telemetry/Huc: Yes Oxygen Used: room air Other: fall risk, recent TBI with behavioral changes, intermittent use of restraints (days ago) Pain Assessment Pain Assessment: No/denies pain Pain Score: 0 Bed Mobility Other: NT, pt found ambulating in hallway with other staff. Pt left sitting up in bedside chair with light and tray near. Transfers Sit to Stand: Standby assist Stand to Sit: Standby assist Toilet Transfers: Standby assist Other: cues for safety awareness. Gait Base of Support: Within Functional Limits Pattern: Decreased marty, R Decreased foot clearance, L Decreased foot clearance Gait Assistance: Contact guard assist Assistive Device: None Gait Distance: 70' x2 + 15' x2 Limiting Factors to Gait: Decreased safety, Cognition/difficulty following directions Other: 15' x2 traversing obstacle course of soft items under feet and stepping over 12 object, performed twice. Balance Sitting Balance: Static: Good Sitting Balance: Dynamic: Good Standing Balance: Static: Fair (-) Standing Balance: Dynamic: Fair Other: pt stood for approx. 10 minutes on 2 inch foam pad performing balloon volley reaching in and outside CHIO, multiple LOB mostly to the left and anteriorly. pt demonstrated good righting reactions throughout requiring ocassional assist to correct increasing up to Mod assist. Activity Tolerance Endurance: Tolerates >30 minutes activity with rest breaks Other: rest breaks as needed Plan Physical Therapy Care Plan Physical Therapy Care Plan (Active) Template: PT - Physical Therapy Problem: Activity Tolerance Dates: Start: 07/13/24 Disciplines: PT Goal: Tolerate > 30 minutes of activity WITH rest breaks Dates: Start: 07/13/24 Expected End: 07/27/24 Description: Goal Description: Patient to perform functional range / strength exercises to improve functional strength, balance and activity tolerance for improved independence and safety with mobility. Disciplines: PT Outcomes Date/Time User Outcome 07/19/24 1453 Vinod Vaca PTA Progressing 07/17/24 1443 Vinod Vaca PTA Progressing Goal Note filed on 07/19/24 1453 by Vinod Vaca PTA Evaluation of progress towards goal: Problem: Gait Dates: Start: 07/13/24 Disciplines: PT Goal: Patient will perform gait Independently Dates: Start: 07/13/24 Expected End: 07/27/24 Description: Without AD >500ft for community mobility Disciplines: PT Outcomes Date/Time User Outcome 07/19/24 1453 Vinod Vaca PTA Progressing 07/17/24 1443 Vinod Vaca PTA Progressing Goal Note filed on 07/19/24 1453 by Vinod Vaca PTA Evaluation of progress towards goal: Problem: Stairs/Curb Dates: Start: 07/13/24 Disciplines: PT Goal: Patient will perform stairs/curb with Modified [place] Dates: Start: 07/13/24 Expected End: 07/27/24 Description: __flight___steps,__x1___hand rails Goal Description: Disciplines: PT Problem: Standing Balance Dates: Start: 07/13/24 Disciplines: PT Goal: Improve balance to good Dates: Start: 07/13/24 Expected End: 07/27/24 Description: Without UE support Disciplines: PT Outcomes Date/Time User Outcome 07/19/24 1453 Vinod Vaca PTA Progressing 07/17/24 1443 Vinod Vaca PTA Progressing Goal Note filed on 07/19/24 1453 by Vinod Vaac PTA Evaluation of progress towards goal: Problem: Transfers Dates: Start: 07/13/24 Disciplines: PT Goal: Patient will perform transfers Independently Dates: Start: 07/13/24 Expected End: 07/27/24 Description: Goal Description: Disciplines: PT Outcomes Date/Time User Outcome 07/19/24 1453 Vinod Vaca PTA Progressing 07/17/24 1443 Vinod Vaca PTA Progressing Goal Note filed on 07/19/24 1453 by Vinod Vaca PTA Evaluation of progress towards goal: Physical Therapy Care Plan (Resolved) There are no resolved problems. Principal Problem: Dementia with behavioral disturbance ([facility]) Active Problems: Altered mental status Status post colostomy, follow-up exam ([facility]) Cosigned by Jose Gorman PT at 07/19/2024 3:14 PM EST Associated attestation - Jose Gorman PT - 07/19/2024 3:14 PM EST I have reviewed and agree with this note and education documentation for this visit. Problem: Safety Goal: Patient will be injury free during hospitalization Description: INTERVENTIONS: 1. Assess patient's risk for falls and implement fall prevention plan of care per policy 2. Provide and maintain a safe environment 3. Proper use of double Identifiers 4. Medication administration using the 5 rights 5. Hand hygiene 6. Specimens are labeled at the bedside 7. Instruct patient/ patient passenger relations representative about use of safety devices 8. Include patient/ patient passenger relations representative in decisions related to safety Outcome: Progressing Note: Evaluation of progress towards goal: Patient remains injury free at this time. Problem: Knowledge Deficit Goal: Patient/patient passenger relations representative demonstrates understanding of disease process, treatment plan, medications, and discharge instructions Description: INTERVENTIONS 1. Complete learning assessment and assess knowledge base 2. Provide teaching at level of understanding 3. Provide teaching via preferred learning method(s) Outcome: Progressing Note: Evaluation of progress towards goal: Patient has alzheimer and has confusion at baseline. Reoriented as needed. Problem: Discharge Planning Goal: Discharge to post-acute care, other facility, or home with appropriate resources Description: Patient's goal is: INTERVENTIONS 1. Conduct assessment to determine patient/family and health care team treatment goals, and need for post-acute services based on payer coverage, community resources, and patient preferences, and barriers to discharge 2. Coordinate with Social work, Care Navigation, and Utilization Review to arrange appropriate level of services according to patient's needs based on patient preference and payer coverage in collaboration with the physician and health care team 3. Address psychosocial, clinical, and financial barriers to discharge as identified in assessment in conjunction with the patient/family and health care team 4. Consult appropriate ancillary services (i.e.. PT/OT/ST, etc) as needed 5. Communicate with and update the patient/family, physician, and health care team regarding progress on the discharge plan 6. Identify discharge learning needs (meds, wound care, etc). 7. Arrange for needed discharge transportation as appropriate Outcome: Progressing Note: Evaluation of progress towards goal: Patient's family working with social work for dc plan. Problem: Neurological Deficit Goal: Neurological status is stable or improving Description: Patient's goal is: INTERVENTIONS 1. Complete Neurological assessment as indicated/ordered 2. Initiate measures to prevent increased intracranial pressure 3. Monitor and assess patient's level of consciousness, motor function, sensory function, and level of assistance needed for ADLs 4. Monitor and report changes from baseline 5. Maintain blood pressure and fluid volume within ordered parameters to optimize cerebral perfusion and minimize risk of hemorrhage 6. Monitor labs and diagnostic tests 7. Administer anti-seizure medications as ordered 8. Maintain airway, patient safety and administer oxygen as ordered 9. Monitor patient for seizure activity, document and report duration and description of seizure to LIP 10. If seizure occurs, turn patient to side and suction secretions as needed 11. Reorient patient post seizure 12. Seizure pads on all 4 side rails 13. Instruct patient/family to notify RN of any seizure activity 14. Instruct patient/family to call for assistance with activity based on assessment 15. Utilize bleeding precautions if thrombolytic given Outcome: Progressing Note: Evaluation of progress towards goal: Patient's neuro status is stable. Problem: Moderate - High Risk Fall Score Description: Gallegos Fall Score of =/> [address] [facility] Assessment Goal: Patient should be free from fall Description: Interventions: 1. [place] to environment 2. Hourly rounds addressing the 4 P's (Pain, Positioning, Possessions, Potty) 3. Clear area of hazards (spills, clutter, electrical cords, unnecessary equipment) 4. Place equipment (bed & TV controls, call light, phone, urinal) within reach 5. Encourage patient to wear glasses and hearing aides as appropriate 6. Maintain bed in lowest position 7. Lock wheels on bed/wheelchair 8. Provide adequate lighting, including night light 9. Assess need for additional bedding, food/fluids, pain med's prior to sleep/routinely 10. Provide gripper slippers or personal non-skid footwear 11. Teach patient and patient passenger relations representative to maintain environment for safety and engage in all aspects of fall prevention program 12. Remind patient to call for help before getting out of bed 13. Initiate bed/chair/exit alarms supportive devices as appropriate, (chair wedge, no-skid floor mat, raised edge mattress, hip protectors) 14. Locate patient bed assignment for optimal visualization 15. Evaluate and identify Safe Patient Handling Equipment needs 16. Provide supervision when out of bed or chair 17. Utilize gait belt as needed to assist with ambulation 18. Place adaptive equipment (cane, walker) within reach 19. Request patient passenger relations representative bring adaptive equipment/mobility aids from home or obtain and provide as needed 20. Consult pharmacy regarding effects of med's affecting mobility, cognition, and alternatives 21. Obtain physician order for PT if risk factors associated with mobility are present 22. Obtain physician order for OT as appropriate 23. Utilize diversional activities 24. Educate patient and patient passenger relations representative how to maintain a safe environment during visitation times (notify nurse prior to leaving bedside) 25. Consider appropriateness of medical or non-medical reception specialist 26. Set up voiding schedule as appropriate (every 2 hours) Outcome: Progressing Note: Evaluation of progress towards goal: Patient remains free from falls. DISCHARGE PLANNING NOTE Updates to [facility] (P# ; F# ) Images from the original note were not included. DISCHARGE PLANNING NOTE Discussed patient today during rounds. Plan-TBI center VS IPR. This engineering writer and floor Mgr spoke with patient's over the phone and his sister in his room re: d/c planning. Updated them that [facility] has denied. [facility] as well as sending blanketed SNF referrals. They are in agreement with sending to [facility] at this time and will let us know today if they would like SNF referrals sent or if the back up plan would be home. Tasked CN to send referral to [facility]. Leadership team aware. Services Requested: Services Requested Patient expects to be discharged to:: TBI center VS IPR Discharge Disposition: Acute rehab Patient Goals: Goals: Goals <enter goal here> (pt-stated) Evaluation of progress towards goal: TBI center vs IPR - NANCY PARRISH 07/19/24 10:42 AM This engineering writer and steel floor pan placing supervisor and Dr. Shipley spoke with patient, and sister re: d/c planning. They are aware that [facility] is still reviewing referral. Asked if SNF referrals can be sent and they declined stating they would like the physician to see if she can get him transferred to [facility] as a physician to physician transfer. Updated Leadership. If neither of these hospitals can accept then patient to d/c home with since SNF has been declined. - NANCY PARRISH 07/19/24 12:14 PM This engineering writer and floor mgr spoke with family to let them know [facility] has denied patient and that they recommend SNF for him. Tasked CN to send neuro note from today to [facility] to see if they can accept him with this updated note. Leadership aware. - NANCY PARRISH 07/19/24 3:21 PM Problem: Safety Goal: Patient will be injury free during hospitalization Description: INTERVENTIONS: 1. Assess patient's risk for falls and implement fall prevention plan of care per policy 2. Provide and maintain a safe environment 3. Proper use of double Identifiers 4. Medication administration using the 5 rights 5. Hand hygiene 6. Specimens are labeled at the bedside 7. Instruct patient/ patient passenger relations representative about use of safety devices 8. Include patient/ patient passenger relations representative in decisions related to safety Outcome: Progressing Note: Evaluation of progress towards goal: Problem: Knowledge Deficit Goal: Patient/patient passenger relations representative demonstrates understanding of disease process, treatment plan, medications, and discharge instructions Description: INTERVENTIONS 1. Complete learning assessment and assess knowledge base 2. Provide teaching at level of understanding 3. Provide teaching via preferred learning method(s) Outcome: Progressing Note: Evaluation of progress towards goal: Problem: Discharge Planning Goal: Discharge to post-acute care, other facility, or home with appropriate resources Description: Patient's goal is: INTERVENTIONS 1. Conduct assessment to determine patient/family and health care team treatment goals, and need for post-acute services based on payer coverage, community resources, and patient preferences, and barriers to discharge 2. Coordinate with Social work, Care Navigation, and Utilization Review to arrange appropriate level of services according to patient's needs based on patient preference and payer coverage in collaboration with the physician and health care team 3. Address psychosocial, clinical, and financial barriers to discharge as identified in assessment in conjunction with the patient/family and health care team 4. Consult appropriate ancillary services (i.e.. PT/OT/ST, etc) as needed 5. Communicate with and update the patient/family, physician, and health care team regarding progress on the discharge plan 6. Identify discharge learning needs (meds, wound care, etc). 7. Arrange for needed discharge transportation as appropriate Outcome: Progressing Note: Evaluation of progress towards goal: Problem: Neurological Deficit Goal: Neurological status is stable or improving Description: Patient's goal is: INTERVENTIONS 1. Complete Neurological assessment as indicated/ordered 2. Initiate measures to prevent increased intracranial pressure 3. Monitor and assess patient's level of consciousness, motor function, sensory function, and level of assistance needed for ADLs 4. Monitor and report changes from baseline 5. Maintain blood pressure and fluid volume within ordered parameters to optimize cerebral perfusion and minimize risk of hemorrhage 6. Monitor labs and diagnostic tests 7. Administer anti-seizure medications as ordered 8. Maintain airway, patient safety and administer oxygen as ordered 9. Monitor patient for seizure activity, document and report duration and description of seizure to LIP 10. If seizure occurs, turn patient to side and suction secretions as needed 11. Reorient patient post seizure 12. Seizure pads on all 4 side rails 13. Instruct patient/family to notify RN of any seizure activity 14. Instruct patient/family to call for assistance with activity based on assessment 15. Utilize bleeding precautions if thrombolytic given Outcome: Progressing Note: Evaluation of progress towards goal: Problem: Safety Goal: Patient will be injury free during hospitalization Description: INTERVENTIONS: 1. Assess patient's risk for falls and implement fall prevention plan of care per policy 2. Provide and maintain a safe environment 3. Proper use of double Identifiers 4. Medication administration using the 5 rights 5. Hand hygiene 6. Specimens are labeled at the bedside 7. Instruct patient/ patient passenger relations representative about use of safety devices 8. Include patient/ patient passenger relations representative in decisions related to safety Outcome: Progressing Note: Evaluation of progress towards goal: Problem: Knowledge Deficit Goal: Patient/patient passenger relations representative demonstrates understanding of disease process, treatment plan, medications, and discharge instructions Description: INTERVENTIONS 1. Complete learning assessment and assess knowledge base 2. Provide teaching at level of understanding 3. Provide teaching via preferred learning method(s) Outcome: Progressing Note: Evaluation of progress towards goal: Problem: Discharge Planning Goal: Discharge to post-acute care, other facility, or home with appropriate resources Description: Patient's goal is: INTERVENTIONS 1. Conduct assessment to determine patient/family and health care team treatment goals, and need for post-acute services based on payer coverage, community resources, and patient preferences, and barriers to discharge 2. Coordinate with Social work, Care Navigation, and Utilization Review to arrange appropriate level of services according to patient's needs based on patient preference and payer coverage in collaboration with the physician and health care team 3. Address psychosocial, clinical, and financial barriers to discharge as identified in assessment in conjunction with the patient/family and health care team 4. Consult appropriate ancillary services (i.e.. PT/OT/ST, etc) as needed 5. Communicate with and update the patient/family, physician, and health care team regarding progress on the discharge plan 6. Identify discharge learning needs (meds, wound care, etc). 7. Arrange for needed discharge transportation as appropriate Outcome: Progressing Note: Evaluation of progress towards goal: Problem: Neurological Deficit Goal: Neurological status is stable or improving Description: Patient's goal is: INTERVENTIONS 1. Complete Neurological assessment as indicated/ordered 2. Initiate measures to prevent increased intracranial pressure 3. Monitor and assess patient's level of consciousness, motor function, sensory function, and level of assistance needed for ADLs 4. Monitor and report changes from baseline 5. Maintain blood pressure and fluid volume within ordered parameters to optimize cerebral perfusion and minimize risk of hemorrhage 6. Monitor labs and diagnostic tests 7. Administer anti-seizure medications as ordered 8. Maintain airway, patient safety and administer oxygen as ordered 9. Monitor patient for seizure activity, document and report duration and description of seizure to LIP 10. If seizure occurs, turn patient to side and suction secretions as needed 11. Reorient patient post seizure 12. Seizure pads on all 4 side rails 13. Instruct patient/family to notify RN of any seizure activity 14. Instruct patient/family to call for assistance with activity based on assessment 15. Utilize bleeding precautions if thrombolytic given Outcome: Progressing Note: Evaluation of progress towards goal: Problem: Safety Goal: Patient will be injury free during hospitalization Description: INTERVENTIONS: 1. Assess patient's risk for falls and implement fall prevention plan of care per policy 2. Provide and maintain a safe environment 3. Proper use of double Identifiers 4. Medication administration using the 5 rights 5. Hand hygiene 6. Specimens are labeled at the bedside 7. Instruct patient/ patient passenger relations representative about use of safety devices 8. Include patient/ patient passenger relations representative in decisions related to safety Outcome: Progressing Note: Evaluation of progress towards goal: patient is injury free at this time. Problem: Knowledge Deficit Goal: Patient/patient passenger relations representative demonstrates understanding of disease process, treatment plan, medications, and discharge instructions Description: INTERVENTIONS 1. Complete learning assessment and assess knowledge base 2. Provide teaching at level of understanding 3. Provide teaching via preferred learning method(s) Outcome: Progressing Note: Evaluation of progress towards goal: Patient is A&Ox1, reoriented as needed. Problem: Discharge Planning Goal: Discharge to post-acute care, other facility, or home with appropriate resources Description: Patient's goal is: INTERVENTIONS 1. Conduct assessment to determine patient/family and health care team treatment goals, and need for post-acute services based on payer coverage, community resources, and patient preferences, and barriers to discharge 2. Coordinate with Social work, Care Navigation, and Utilization Review to arrange appropriate level of services according to patient's needs based on patient preference and payer coverage in collaboration with the physician and health care team 3. Address psychosocial, clinical, and financial barriers to discharge as identified in assessment in conjunction with the patient/family and health care team 4. Consult appropriate ancillary services (i.e.. PT/OT/ST, etc) as needed 5. Communicate with and update the patient/family, physician, and health care team regarding progress on the discharge plan 6. Identify discharge learning needs (meds, wound care, etc). 7. Arrange for needed discharge transportation as appropriate Outcome: Progressing Note: Evaluation of progress towards goal: Patient working with social work to figure out discharge plan. Problem: Neurological Deficit Goal: Neurological status is stable or improving Description: Patient's goal is: INTERVENTIONS 1. Complete Neurological assessment as indicated/ordered 2. Initiate measures to prevent increased intracranial pressure 3. Monitor and assess patient's level of consciousness, motor function, sensory function, and level of assistance needed for ADLs 4. Monitor and report changes from baseline 5. Maintain blood pressure and fluid volume within ordered parameters to optimize cerebral perfusion and minimize risk of hemorrhage 6. Monitor labs and diagnostic tests 7. Administer anti-seizure medications as ordered 8. Maintain airway, patient safety and administer oxygen as ordered 9. Monitor patient for seizure activity, document and report duration and description of seizure to LIP 10. If seizure occurs, turn patient to side and suction secretions as needed 11. Reorient patient post seizure 12. Seizure pads on all 4 side rails 13. Instruct patient/family to notify RN of any seizure activity 14. Instruct patient/family to call for assistance with activity based on assessment 15. Utilize bleeding precautions if thrombolytic given Outcome: Progressing Note: Evaluation of progress towards goal: Patient's numerological status is stable. Problem: Moderate - High Risk Fall Score Description: Gallegos Fall Score of =/> [address] [facility] Rehab Assessment Goal: Patient should be free from fall Description: Interventions: 1. [place] to environment 2. Hourly rounds addressing the 4 P's (Pain, Positioning, Possessions, Potty) 3. Clear area of hazards (spills, clutter, electrical cords, unnecessary equipment) 4. Place equipment (bed & TV controls, call light, phone, urinal) within reach 5. Encourage patient to wear glasses and hearing aides as appropriate 6. Maintain bed in lowest position 7. Lock wheels on bed/wheelchair 8. Provide adequate lighting, including night light 9. Assess need for additional bedding, food/fluids, pain med's prior to sleep/routinely 10. Provide gripper slippers or personal non-skid footwear 11. Teach patient and patient passenger relations representative to maintain environment for safety and engage in all aspects of fall prevention program 12. Remind patient to call for help before getting out of bed 13. Initiate bed/chair/exit alarms supportive devices as appropriate, (chair wedge, no-skid floor mat, raised edge mattress, hip protectors) 14. Locate patient bed assignment for optimal visualization 15. Evaluate and identify Safe Patient Handling Equipment needs 16. Provide supervision when out of bed or chair 17. Utilize gait belt as needed to assist with ambulation 18. Place adaptive equipment (cane, walker) within reach 19. Request patient passenger relations representative bring adaptive equipment/mobility aids from home or obtain and provide as needed 20. Consult pharmacy regarding effects of med's affecting mobility, cognition, and alternatives 21. Obtain physician order for PT if risk factors associated with mobility are present 22. Obtain physician order for OT as appropriate 23. Utilize diversional activities 24. Educate patient and patient passenger relations representative how to maintain a safe environment during visitation times (notify nurse prior to leaving bedside) 25. Consider appropriateness of medical or non-medical reception specialist 26. Set up voiding schedule as appropriate (every 2 hours) Outcome: Progressing Note: Evaluation of progress towards goal: Patient is free from falls at this time. DISCHARGE PLANNING NOTE Referral sent to [facility] (P# [phone] ; F# [phone]) Images from the original note were not included. DISCHARGE PLANNING NOTE Discussed patient today during rounds. Patient's requested updates be sent to [facility]. Tasked [facility] to send. Leadership team aware as well as floor nurse. Barriers- acceptance, auth. Services Requested: Services Requested Patient expects to be discharged to:: home vs snf Patient Goals: Goals: Goals <enter goal here> (pt-stated) Evaluation of progress towards goal: TBD-pending PT/OT eval - NANCY PARRISH 07/18/24 10:30 AM Still awaiting response from [facility] if they can accept patient. Leadership team aware. Floor mgr has spoken with family to update them. - NANCY PARRISH 07/18/24 2:50 PM Problem: Safety Goal: Patient will be injury free during hospitalization Description: INTERVENTIONS: 1. Assess patient's risk for falls and implement fall prevention plan of care per policy 2. Provide and maintain a safe environment 3. Proper use of double Identifiers 4. Medication administration using the 5 rights 5. Hand hygiene 6. Specimens are labeled at the bedside 7. Instruct patient/ patient passenger relations representative about use of safety devices 8. Include patient/ patient passenger relations representative in decisions related to safety Outcome: Progressing Note: Evaluation of progress towards goal: Patient will remain safe and free from injury during hospitalization. Problem: Discharge Planning Goal: Discharge to post-acute care, other facility, or home with appropriate resources Description: Patient's goal is: INTERVENTIONS 1. Conduct assessment to determine patient/family and health care team treatment goals, and need for post-acute services based on payer coverage, community resources, and patient preferences, and barriers to discharge 2. Coordinate with Social work, Care Navigation, and Utilization Review to arrange appropriate level of services according to patient's needs based on patient preference and payer coverage in collaboration with the physician and health care team 3. Address psychosocial, clinical, and financial barriers to discharge as identified in assessment in conjunction with the patient/family and health care team 4. Consult appropriate ancillary services (i.e.. PT/OT/ST, etc) as needed 5. Communicate with and update the patient/family, physician, and health care team regarding progress on the discharge plan 6. Identify discharge learning needs (meds, wound care, etc). 7. Arrange for needed discharge transportation as appropriate Outcome: Progressing Note: Evaluation of progress towards goal: Pending discharge to TBI Clinic vs SNF vs home, to be determined. Problem: Moderate - High Risk Fall Score Description: Gallegos Fall Score of =/> 25 or indicated by [facility] Assessment Goal: Patient should be free from fall Description: Interventions: 1. [place] to environment 2. Hourly rounds addressing the 4 P's (Pain, Positioning, Possessions, Potty) 3. Clear area of hazards (spills, clutter, electrical cords, unnecessary equipment) 4. Place equipment (bed & TV controls, call light, phone, urinal) within reach 5. Encourage patient to wear glasses and hearing aides as appropriate 6. Maintain bed in lowest position 7. Lock wheels on bed/wheelchair 8. Provide adequate lighting, including night light 9. Assess need for additional bedding, food/fluids, pain med's prior to sleep/routinely 10. Provide gripper slippers or personal non-skid footwear 11. Teach patient and patient passenger relations representative to maintain environment for safety and engage in all aspects of fall prevention program 12. Remind patient to call for help before getting out of bed 13. Initiate bed/chair/exit alarms supportive devices as appropriate, (chair wedge, no-skid floor mat, raised edge mattress, hip protectors) 14. Locate patient bed assignment for optimal visualization 15. Evaluate and identify Safe Patient Handling Equipment needs 16. Provide supervision when out of bed or chair 17. Utilize gait belt as needed to assist with ambulation 18. Place adaptive equipment (cane, walker) within reach 19. Request patient passenger relations representative bring adaptive equipment/mobility aids from home or obtain and provide as needed 20. Consult pharmacy regarding effects of med's affecting mobility, cognition, and alternatives 21. Obtain physician order for PT if risk factors associated with mobility are present 22. Obtain physician order for OT as appropriate 23. Utilize diversional activities 24. Educate patient and patient passenger relations representative how to maintain a safe environment during visitation times (notify nurse prior to leaving bedside) 25. Consider appropriateness of medical or non-medical reception specialist 26. Set up voiding schedule as appropriate (every 2 hours) Outcome: Progressing Note: Evaluation of progress towards goal: Patient will remain free from falls. DISCHARGE PLANNING NOTE Referral sent to. [facility] (P# [phone] ; F# [phone], ) Physical Therapy Treatment Discharge Recommendations PT Recommendations: Inpatient Rehab Inpatient Rehab Criteria: All inpatient rehab criteria expected to be met 6 Clicks: Basic Mobility Turning from your back to your side while in a flat bed without using bed rails?: None Moving from lying on your back to sitting on side of flat bed without using bed rails?: None Moving to and from bed to a chair (including w/c)?: A little Standing up from a chair using your arms (e.g. w/c or bedside chair)?: A little To walk in hospital room?: A little Climbing 3-5 steps with a railing?: A little Scoring 6 Clicks: Basic Mobility Raw Score: 20 CMS G Code Modifier: CJ Patient Response to Treatment: Progressing toward goals Assessment Patient Assessment Patient Response to Treatment: Progressing toward goals Visit RN Communication: Yes Medical Record Reviewed: Yes PT Type of Visit: Treatment Precautions Activity: ok for therapy per MARCI Rothman Equipment: gait belt and chair alarm Telemetry/Huc: Yes Oxygen Used: room air Other: fall risk, recent TBI with behavioral changes, intermittent use of restraints Pain Assessment Pain Assessment: No/denies pain 07/17/24 1416 LE Seated LE seated exercises performed? Yes Ankle pumps x Long arc quads x Seated marching x Other verbal and visual cues for proper technique Repetitions 20x AROM BLE Bed Mobility Supine to Sit: Stand by assist Sit to Supine: Stand by assist Other: HOB elevated use of siderail. Transfers Sit to Stand: Standby assist Stand to Sit: Standby assist Toilet Transfers: Standby assist Other: safety awareness is a distant second to pt's desire to be independent. Gait Base of Support: Within Functional Limits Pattern: Decreased marty, R Decreased foot clearance, L Decreased foot clearance Gait Assistance: Contact guard assist, Mod assist Assistive Device: None Gait Distance: 70' x3 with rest break between distances. pt had major LOB to the right with no attempt to correct, corrected by Mod assist. Limiting Factors to Gait: Decreased safety, Cognition/difficulty following directions Other: cues for safety awareness. Balance Sitting Balance: Static: Good Sitting Balance: Dynamic: Good Standing Balance: Static: Fair (-) Standing Balance: Dynamic: Fair Other: various standing balance activities performed for a total of 8 minutes to improve balance and tolerance. Activity Tolerance Endurance: No limitations to activity tolerance Other: safety was chief limiting concern Plan Physical Therapy Care Plan Physical Therapy Care Plan (Active) Template: PT - Physical Therapy Problem: Activity Tolerance Dates: Start: 07/13/24 Disciplines: PT Goal: Tolerate > 30 minutes of activity WITH rest breaks Dates: Start: 07/13/24 Expected End: 07/27/24 Description: Goal Description: Patient to perform functional range / strength exercises to improve functional strength, balance and activity tolerance for improved independence and safety with mobility. Disciplines: PT Outcomes Date/Time User Outcome 07/17/24 1443 Vinod Vaca PTA Progressing Goal Note filed on 07/17/24 1443 by Vinod Vaca PTA Evaluation of progress towards goal: Problem: Gait Dates: Start: 07/13/24 Disciplines: PT Goal: Patient will perform gait Independently Dates: Start: 07/13/24 Expected End: 07/27/24 Description: Without AD >500ft for community mobility Disciplines: PT Outcomes Date/Time User Outcome 07/17/24 1443 Vinod Vaca PTA Progressing Goal Note filed on 07/17/24 1443 by Vinod Vaca PTA Evaluation of progress towards goal: Problem: Stairs/Curb Dates: Start: 07/13/24 Disciplines: PT Goal: Patient will perform stairs/curb with Modified [place] Dates: Start: 07/13/24 Expected End: 07/27/24 Description: __flight___steps,__x1___hand rails Goal Description: Disciplines: PT Problem: Standing Balance Dates: Start: 07/13/24 Disciplines: PT Goal: Improve balance to good Dates: Start: 07/13/24 Expected End: 07/27/24 Description: Without UE support Disciplines: PT Outcomes Date/Time User Outcome 07/17/24 1443 Vinod Vaca PTA Progressing Goal Note filed on 07/17/24 1443 by Vinod Vaca PTA Evaluation of progress towards goal: Problem: Transfers Dates: Start: 07/13/24 Disciplines: PT Goal: Patient will perform transfers Independently Dates: Start: 07/13/24 Expected End: 07/27/24 Description: Goal Description: Disciplines: PT Outcomes Date/Time User Outcome 07/17/24 1443 Vinod Vaca PTA Progressing Goal Note filed on 07/17/24 1443 by Vinod Vaca PTA Evaluation of progress towards goal: Physical Therapy Care Plan (Resolved) There are no resolved problems. Principal Problem: Dementia with behavioral disturbance ([facility]) Active Problems: Altered mental status Status post colostomy, follow-up exam ([facility]) Cosigned by Briana Nuno PT at 07/18/2024 7:18 AM EST Associated attestation - Briana Nuno PT - 07/18/2024 7:18 AM EST I have reviewed and agree with this note and education documentation for this visit. Occupational Therapy Treatment Discharge Recommendations OT Recommendations : Inpatient Rehab 6 Clicks: Daily Activity Putting on and taking off regular lower body clothing?: A little Bathing (including washing, rinsing, drying)?: A little Toileting, which includes using toilet, bedpan or urinal?: A little Putting on and taking off regular upper body clothing?: A little Taking care of personal grooming such as brushing teeth?: A little Eating meals?: None (after set up) Scoring Daily Activity Raw Score: 19 [facility] G Code Modifier: CK Therapy Plan Need for skilled Occupational Therapy to address deficits in ADL independence and functional mobility due to a status decline resulting from 07/17/24 1332 UE ROM UE ROM exercises performed? Yes Shoulder flexion/extension x Shoulder horizontal abduction/adduction x Elbow flexion/extension x Repetitions 20 reps w/bilat UE w/2lbs; OT Treatment/Interventions: ADL retraining, Cognitive reorientation, Balance, Bed mobility, Functional transfer training, Patient/family training, Home management, Functional activities, Equipment eval/education OT Frequency: 3-4days/week Assessment Patient Assessment Patient Response to Treatment: Progressing toward goals Visit RN Communication: Yes Medical Record Reviewed: Yes OT Type of Visit: Treatment Precautions Activity: ok for therapy per MARCI Rothman Equipment: gait belt and chair alarm Telemetry/Huc: Yes Oxygen Used: room air Other: fall risk, recent TBI with behavioral changes, intermittent use of restraints Pain Assessment Pain Assessment: No/denies pain ADL / IADL Hand Dominance: Right Where Assessed: At toilet, Standing at sink Grooming Assistance: Setup, Contact guard assist Grooming Deficit: Wash/dry hands (required cuing for use of soap and to dry hands after washing hands) Toilet/Commode Assistance: (S) Setup, Contact guard assist, Min assist, Verbal cues (required vcing for thoroughness w/hygiene after BM; pt required increased cuing for clothing management; pt attempted to walk away from toilet w/pants down at ankles) Hearing / Speech / Vision Hearing: Within Functional Limits Speech: Within Functional Limits Cognition Overall Cognitive Status: Exceptions to Within Functional Limits Arousal/Alertness: Delayed responses to stimuli Following Commands: Follows one step commands with repetition Safety Judgment: Decreased awareness of need for safety, Decreased awareness of need for assistance Awareness of Errors: Decreased awareness of errors Insight of Deficits: Decreased awareness of deficits (pt unaware of major LOB during ambulation) Problem Solving: Reduced Interfering Components: Working memory Bed Mobility Supine to Sit: Stand by assist (HOB elevated; SBA d/t decreased safety awareness otherwise would be mod I) Sit to Supine: Stand by assist (HOB elevated) Transfers Sit to Stand: Standby assist Stand to Sit: Standby assist Toilet Transfers: Standby assist Other: slightly unsteady w/transfers at times, pt unaware of unsteadiness Gait Gait Assistance: Contact guard assist, Mod assist (mod A w/1 major LOB during mobility) Assistive Device: None Gait Distance: 70ftx3 w/1 major LOB which required modA to correct Limiting Factors to Gait: Decreased safety, Cognition/difficulty following directions Balance Sitting Balance: Static: Good Sitting Balance: Dynamic: Good Standing Balance: Static: (initial STS demo'd fair- balance; good balance once oriented to standing) Standing Balance: Dynamic: Fair Other: engaged in a dynamic standing activity w/dynamic reaching for about 8mins, demo'd ablity to right self during activity however during ambulation pt unaware of LOB Activity Tolerance Endurance: No limitations to activity tolerance Plan Occupational Therapy Care Plan Occupational Therapy Care Plan (Active) Template: OT - Occupational Therapy Problem: Activity Tolerance Dates: Start: 07/13/24 Disciplines: OT Goal: No limitations to activity tolerance Dates: Start: 07/13/24 Expected End: 08/13/24 Description: Goal Description: Disciplines: OT Outcomes Date/Time User Outcome 07/17/24 1439 KWADWO Hogan/Jerome Progressing Problem: Bathing LB Dates: Start: 07/13/24 Disciplines: OT Goal: Patient will perform bathing LB Independently Dates: Start: 07/13/24 Expected End: 08/13/24 Description: Goal Description: Disciplines: OT Problem: Bathing UB Dates: Start: 07/13/24 Disciplines: OT Goal: Patient will perform bathing UB Independently Dates: Start: 07/13/24 Expected End: 08/13/24 Description: Goal Description: Disciplines: OT Problem: Cognition Dates: Start: 07/13/24 Disciplines: OT Goal: Improve cognition Dates: Start: 07/13/24 Expected End: 08/13/24 Description: Patient will demonstrate good safety, judgement and ability to independently execute steps necessary for ADL tasks. Disciplines: OT Outcomes Date/Time User Outcome 07/17/24 1439 KWADWO Hogan/[place] Progressing Problem: Dressing LB Dates: Start: 07/13/24 Disciplines: OT Goal: Patient will perform dressing LB Independently Dates: Start: 07/13/24 Expected End: 08/13/24 Description: Goal Description: Disciplines: OT Problem: Dressing UB Dates: Start: 07/13/24 Disciplines: OT Goal: Patient will perform dressing UB Independently Dates: Start: 07/13/24 Expected End: 08/13/24 Description: Goal Description: Disciplines: OT Problem: Functional Mobility Dates: Start: 07/13/24 Disciplines: OT Goal: Patient will perform functional mobility Independently Dates: Start: 07/13/24 Expected End: 08/13/24 Description: Goal Description: Disciplines: OT Outcomes Date/Time User Outcome 07/17/24 1439 Yoanna Han-Mahoney, [place]/L Progressing Problem: Grooming Dates: Start: 07/13/24 Disciplines: OT Goal: Patient will perform grooming Independently Dates: Start: 07/13/24 Expected End: 08/13/24 Description: Goal Description: Disciplines: OT Outcomes Date/Time User Outcome 07/17/24 1439 Yoanna Han-Mahoney, KWADWO/L Progressing Problem: Standing Balance Dates: Start: 07/13/24 Disciplines: OT Goal: Improve balance to normal Dates: Start: 07/13/24 Expected End: 08/13/24 Description: Normal dynamic balance. Disciplines: OT Outcomes Date/Time User Outcome 07/17/24 1439 Yoanna Han-Mahoney, KWADWO/L Progressing Problem: Toilet Transfers Dates: Start: 07/13/24 Disciplines: OT Goal: Patient will perform toilet transfers Independently Dates: Start: 07/13/24 Expected End: 08/13/24 Description: Goal Description: Disciplines: OT Outcomes Date/Time User Outcome 07/17/24 1439 Yoanna Han-Mahoney, [place]/L Progressing Problem: Toileting Dates: Start: 07/13/24 Disciplines: OT Goal: Patient will perform toileting Independently Dates: Start: 07/13/24 Expected End: 08/13/24 Description: Goal Description: Disciplines: OT Outcomes Date/Time User Outcome 07/17/24 1439 Yoanna Han-Mahoney, [place]/L Progressing Problem: Transfers Dates: Start: 07/13/24 Disciplines: OT Goal: Patient will perform transfers Independently Dates: Start: 07/13/24 Expected End: 08/13/24 Description: Goal Description: Disciplines: OT Outcomes Date/Time User Outcome 07/17/24 1439 Yoanna Han-Mahoney, KWADWO/L Progressing Occupational Therapy Care Plan (Resolved) There are no resolved problems. Principal Problem: Dementia with behavioral disturbance (CMS-HCC) Active Problems: Altered mental status Status post colostomy, follow-up exam ([facility]) Cosigned by MAYNOR Navarro/Jerome at 07/17/2024 3:03 PM EST Associated attestation - Lucie Olivarez OTR/Jerome - 07/17/2024 3:03 PM EST I have reviewed and agree with this note and education documentation for this visit. Problem: Safety Goal: Patient will be injury free during hospitalization Description: INTERVENTIONS: 1. Assess patient's risk for falls and implement fall prevention plan of care per policy 2. Provide and maintain a safe environment 3. Proper use of double Identifiers 4. Medication administration using the 5 rights 5. Hand hygiene 6. Specimens are labeled at the bedside 7. Instruct patient/ patient passenger relations representative about use of safety devices 8. Include patient/ patient passenger relations representative in decisions related to safety Outcome: Progressing Note: Evaluation of progress towards goal: Patient is injury free at this time. Problem: Knowledge Deficit Goal: Patient/patient passenger relations representative demonstrates understanding of disease process, treatment plan, medications, and discharge instructions Description: INTERVENTIONS 1. Complete learning assessment and assess knowledge base 2. Provide teaching at level of understanding 3. Provide teaching via preferred learning method(s) Outcome: Progressing Note: Evaluation of progress towards goal: Patient has hx of dementia. Reoriented as needed. Problem: Discharge Planning Goal: Discharge to post-acute care, other facility, or home with appropriate resources Description: Patient's goal is: INTERVENTIONS 1. Conduct assessment to determine patient/family and health care team treatment goals, and need for post-acute services based on payer coverage, community resources, and patient preferences, and barriers to discharge 2. Coordinate with Social work, Care Navigation, and Utilization Review to arrange appropriate level of services according to patient's needs based on patient preference and payer coverage in collaboration with the physician and health care team 3. Address psychosocial, clinical, and financial barriers to discharge as identified in assessment in conjunction with the patient/family and health care team 4. Consult appropriate ancillary services (i.e.. PT/OT/ST, etc) as needed 5. Communicate with and update the patient/family, physician, and health care team regarding progress on the discharge plan 6. Identify discharge learning needs (meds, wound care, etc). 7. Arrange for needed discharge transportation as appropriate Outcome: Progressing Note: Evaluation of progress towards goal: Patient working with social work to determine discharge plan. Problem: Neurological Deficit Goal: Neurological status is stable or improving Description: Patient's goal is: INTERVENTIONS 1. Complete Neurological assessment as indicated/ordered 2. Initiate measures to prevent increased intracranial pressure 3. Monitor and assess patient's level of consciousness, motor function, sensory function, and level of assistance needed for ADLs 4. Monitor and report changes from baseline 5. Maintain blood pressure and fluid volume within ordered parameters to optimize cerebral perfusion and minimize risk of hemorrhage 6. Monitor labs and diagnostic tests 7. Administer anti-seizure medications as ordered 8. Maintain airway, patient safety and administer oxygen as ordered 9. Monitor patient for seizure activity, document and report duration and description of seizure to LIP 10. If seizure occurs, turn patient to side and suction secretions as needed 11. Reorient patient post seizure 12. Seizure pads on all 4 side rails 13. Instruct patient/family to notify RN of any seizure activity 14. Instruct patient/family to call for assistance with activity based on assessment 15. Utilize bleeding precautions if thrombolytic given Outcome: Progressing Note: Evaluation of progress towards goal: Patient's neurological status is stable. Problem: Moderate - High Risk Fall Score Description: Galelgos Fall Score of =/> [address] [facility] Assessment Goal: Patient should be free from fall Description: Interventions: 1. [place] to environment 2. Hourly rounds addressing the 4 P's (Pain, Positioning, Possessions, Potty) 3. Clear area of hazards (spills, clutter, electrical cords, unnecessary equipment) 4. Place equipment (bed & TV controls, call light, phone, urinal) within reach 5. Encourage patient to wear glasses and hearing aides as appropriate 6. Maintain bed in lowest position 7. Lock wheels on bed/wheelchair 8. Provide adequate lighting, including night light 9. Assess need for additional bedding, food/fluids, pain med's prior to sleep/routinely 10. Provide gripper slippers or personal non-skid footwear 11. Teach patient and patient passenger relations representative to maintain environment for safety and engage in all aspects of fall prevention program 12. Remind patient to call for help before getting out of bed 13. Initiate bed/chair/exit alarms supportive devices as appropriate, (chair wedge, no-skid floor mat, raised edge mattress, hip protectors) 14. Locate patient bed assignment for optimal visualization 15. Evaluate and identify Safe Patient Handling Equipment needs 16. Provide supervision when out of bed or chair 17. Utilize gait belt as needed to assist with ambulation 18. Place adaptive equipment (cane, walker) within reach 19. Request patient passenger relations representative bring adaptive equipment/mobility aids from home or obtain and provide as needed 20. Consult pharmacy regarding effects of med's affecting mobility, cognition, and alternatives 21. Obtain physician order for PT if risk factors associated with mobility are present 22. Obtain physician order for OT as appropriate 23. Utilize diversional activities 24. Educate patient and patient passenger relations representative how to maintain a safe environment during visitation times (notify nurse prior to leaving bedside) 25. Consider appropriateness of medical or non-medical reception specialist 26. Set up voiding schedule as appropriate (every 2 hours) Outcome: Progressing Note: Evaluation of progress towards goal: Patient is free from falls at this time. DISCHARGE PLANNING NOTE fax referral to [facility] to [phone] shannan Alyssa Images from the original note were not included. DISCHARGE PLANNING NOTE Discussed patient today during rounds. Plan- IPR/TBI center. Barriers- acceptance, auth. This engineering writer called both reviewing facilities and left for admissions to see if they can accept. Asked them to call this engineering writer back. Floor nurse and leadership team aware. Services Requested: Services Requested Patient expects to be discharged to:: home vs snf Patient Goals: Goals: Goals <enter goal here> (pt-stated) Evaluation of progress towards goal: TBD-pending PT/OT lynnette - NANCY PARRISH 07/17/24 9:42 AM At this time we do not have an accepting TBI/IPR facility. This engineering writer and steel floor pan placing supervisor attempted to speak with patient's but she is not in the room. Also tried to call her but it went right to VM and her VM box is full. - NANCY PARRISH 07/17/24 1:43 PM [facility] called this engineering writer since they don't respond in careport and they can not accept patient. This engineering writer and steel floor pan placing supervisor spoke with patient's and patient's sister that was present in room re: d/c planning. Explained to them that patient is ready for d/c and that we do not have an accepting TBI/IPR. Discussed the option of taking patient home with outpatient speech therapy and they declined. Suggested SNF with secured memory unit and provided careport list. Also discussed that there is a chance insurance won't approve SNF and that it could be private pay so they are aware. They declined stating that they only want him a TBI/IPR for rehab. Provided 2nd IMM to and explained so she is aware of appeal rights. Updated leadership and floor nurse. - NANCY PARRISH 07/17/24 2:45 PM Problem: Safety Goal: Patient will be injury free during hospitalization Description: INTERVENTIONS: 1. Assess patient's risk for falls and implement fall prevention plan of care per policy 2. Provide and maintain a safe environment 3. Proper use of double Identifiers 4. Medication administration using the 5 rights 5. Hand hygiene 6. Specimens are labeled at the bedside 7. Instruct patient/ patient passenger relations representative about use of safety devices 8. Include patient/ patient passenger relations representative in decisions related to safety Outcome: Progressing Note: Evaluation of progress towards goal: Patient remains injury and fall free. Safety precautions in place: call light within reach, bed in lowest position, personal belongings within reach, oriented to environment, and non-slip footwear on. Problem: Knowledge Deficit Goal: Patient/patient passenger relations representative demonstrates understanding of disease process, treatment plan, medications, and discharge instructions Description: INTERVENTIONS 1. Complete learning assessment and assess knowledge base 2. Provide teaching at level of understanding 3. Provide teaching via preferred learning method(s) Outcome: Progressing Note: Evaluation of progress towards goal: Significant other at bedside and any questions have been answered. Problem: Discharge Planning Goal: Discharge to post-acute care, other facility, or home with appropriate resources Description: Patient's goal is: INTERVENTIONS 1. Conduct assessment to determine patient/family and health care team treatment goals, and need for post-acute services based on payer coverage, community resources, and patient preferences, and barriers to discharge 2. Coordinate with Social work, Care Navigation, and Utilization Review to arrange appropriate level of services according to patient's needs based on patient preference and payer coverage in collaboration with the physician and health care team 3. Address psychosocial, clinical, and financial barriers to discharge as identified in assessment in conjunction with the patient/family and health care team 4. Consult appropriate ancillary services (i.e.. PT/OT/ST, etc) as needed 5. Communicate with and update the patient/family, physician, and health care team regarding progress on the discharge plan 6. Identify discharge learning needs (meds, wound care, etc). 7. Arrange for needed discharge transportation as appropriate Outcome: Progressing Note: Evaluation of progress towards goal: Patient to discharge to TBI IPR, awaiting an accepting facility. Problem: Neurological Deficit Goal: Neurological status is stable or improving Description: Patient's goal is: INTERVENTIONS 1. Complete Neurological assessment as indicated/ordered 2. Initiate measures to prevent increased intracranial pressure 3. Monitor and assess patient's level of consciousness, motor function, sensory function, and level of assistance needed for ADLs 4. Monitor and report changes from baseline 5. Maintain blood pressure and fluid volume within ordered parameters to optimize cerebral perfusion and minimize risk of hemorrhage 6. Monitor labs and diagnostic tests 7. Administer anti-seizure medications as ordered 8. Maintain airway, patient safety and administer oxygen as ordered 9. Monitor patient for seizure activity, document and report duration and description of seizure to LIP 10. If seizure occurs, turn patient to side and suction secretions as needed 11. Reorient patient post seizure 12. Seizure pads on all 4 side rails 13. Instruct patient/family to notify RN of any seizure activity 14. Instruct patient/family to call for assistance with activity based on assessment 15. Utilize bleeding precautions if thrombolytic given Outcome: Progressing Note: Evaluation of progress towards goal: Assess and report any changes in neurological status. Neurological status and vital signs q4h and with any changes in condition. Problem: Moderate - High Risk Fall Score Description: Gallegos Fall Score of =/> 25 or indicated by [facility] Assessment Goal: Patient should be free from fall Description: Interventions: 1. [place] to environment 2. Hourly rounds addressing the 4 P's (Pain, Positioning, Possessions, Potty) 3. Clear area of hazards (spills, clutter, electrical cords, unnecessary equipment) 4. Place equipment (bed & TV controls, call light, phone, urinal) within reach 5. Encourage patient to wear glasses and hearing aides as appropriate 6. Maintain bed in lowest position 7. Lock wheels on bed/wheelchair 8. Provide adequate lighting, including night light 9. Assess need for additional bedding, food/fluids, pain med's prior to sleep/routinely 10. Provide gripper slippers or personal non-skid footwear 11. Teach patient and patient passenger relations representative to maintain environment for safety and engage in all aspects of fall prevention program 12. Remind patient to call for help before getting out of bed 13. Initiate bed/chair/exit alarms supportive devices as appropriate, (chair wedge, no-skid floor mat, raised edge mattress, hip protectors) 14. Locate patient bed assignment for optimal visualization 15. Evaluate and identify Safe Patient Handling Equipment needs 16. Provide supervision when out of bed or chair 17. Utilize gait belt as needed to assist with ambulation 18. Place adaptive equipment (cane, walker) within reach 19. Request patient passenger relations representative bring adaptive equipment/mobility aids from home or obtain and provide as needed 20. Consult pharmacy regarding effects of med's affecting mobility, cognition, and alternatives 21. Obtain physician order for PT if risk factors associated with mobility are present 22. Obtain physician order for OT as appropriate 23. Utilize diversional activities 24. Educate patient and patient passenger relations representative how to maintain a safe environment during visitation times (notify nurse prior to leaving bedside) 25. Consider appropriateness of medical or non-medical reception specialist 26. Set up voiding schedule as appropriate (every 2 hours) Outcome: Progressing Note: Evaluation of progress towards goal: Patient remains injury and fall free. Safety precautions in place: call light within reach, bed in lowest position, personal belongings within reach, oriented to environment, and non-slip footwear on. Speech Therapy Treatment Note Assessment Problem: cognitive linguistic and language Progress: same Pain Assessment Pain Assessment: No/denies pain Recomendation Diet: regular diet with thin liquids Discharge: inpatient rehab Precautions Fall precautions Plan Plan of Care: continue with current plan of care Subjective Setting: chairside Arrival Status: awake and alert Mental Status: confused/disoriented and pleasant Therapy Tolerance: good Change in Medical Status: no Received Recent Meds: no Objective Therapy Activities: attention Cueing/Assistance Required: maximum Cueing Type: verbal Accuracy: maintained attention for about 1 minute at a time Therapy Activities: problem solving Cueing/Assistance Required: moderate Cueing Type: verbal Accuracy: 50% accuracy Therapy Activities: thought organization Cueing/Assistance Required: maximum Cueing Type: verbal Accuracy: 50% accuracy Therapy Activities: topic maintenance Cueing/Assistance Required: maximum Cueing Type: verbal Accuracy: pt needed frequent verbal cues for topic maintenance Plan Speech Therapy Care Plan Speech Therapy Care Plan (Active) Template: [facility] Speech Problem: Auditory Comprehension Dates: Start: 07/12/24 Disciplines: FRUIT THINNER Goal: LTG: Patient will comprehend communication related to basic medical and social needs and utilize compensatory strategies to maintain safety in a functional living environment Dates: Start: 07/12/24 Expected End: 08/12/24 Disciplines: FRUIT THINNER Goal: STG: Patient will answer complex yes/no questions with 90% accuracy with minimal cueing Dates: Start: 07/12/24 Expected End: 08/12/24 Disciplines: FRUIT THINNER Outcomes Date/Time User Outcome 07/16/24 1520 MAGALI Castellanos Progressing Goal: STG: Patient will complete 1-3 step commands with 90% accuracy with minimal cueing Dates: Start: 07/12/24 Expected End: 08/12/24 Disciplines: FRUIT THINNER Outcomes Date/Time User Outcome 07/16/24 Willie0 MAGALI Castellanos Progressing Goal: STG: Patient will complete simple, phrase level auditory comprehension tasks with 90% accuracy with minimal cueing Dates: Start: 07/12/24 Expected End: 08/12/24 Disciplines: FRUIT THINNER Problem: Cognitive Linguistic Dates: Start: 07/12/24 Disciplines: FRUIT THINNER Goal: LTG: Patient will display functional cognitive-linguistic skills to demonstrate appropriate communication and safety within daily activities in a functional living environment Dates: Start: 07/12/24 Expected End: 08/12/24 Disciplines: FRUIT THINNER Goal: STG: Patient will demonstrate sustained attention by maintaining focus during a task for 10 minutes with minimal assistance Dates: Start: 07/12/24 Expected End: 08/12/24 Disciplines: FRUIT THINNER Outcomes Date/Time User Outcome 07/16/24 1520 Conchita Devi, [facility]FR[facility] Progressing Goal: STG: Patient will be appropriately oriented to person, place, time and situation with 90% accuracy with minimal cueing Dates: Start: 07/12/24 Expected End: 08/12/24 Disciplines: FRUIT THINNER Goal: STG: Patient will recall information discussed during therapy session via retelling/answering questions with 90% accuracy with minimal cueing Dates: Start: 07/12/24 Expected End: 08/12/24 Disciplines: FRUIT THINNER Problem: High Level Language Dates: Start: 07/12/24 Disciplines: FRUIT THINNER Goal: LTG: Patient will demonstrate use of self-awareness, goal setting, planning, initiation, self-monitoring and problem solving during daily activities to improve safety and awareness in a functional living environment Dates: Start: 07/12/24 Expected End: 08/12/24 Disciplines: FRUIT THINNER Goal: STG: Patient will sequence 4-6 steps to a task (verbal, written, pictures) with 90% accuracy with minimal cueing Dates: Start: 07/12/24 Expected End: 08/12/24 Disciplines: FRUIT THINNER Goal: STG: Patient will provide 3 appropriate solutions to problems of daily living with 90% accuracy with minimal cueing Dates: Start: 07/12/24 Expected End: 08/12/24 Disciplines: FRUIT THINNER Goal: STG: Patient will demonstrate functional problem solving and safety awareness with 90% accuracy in daily living tasks in order to increase safe interactions with environment and decrease assistance from caregivers Dates: Start: 07/12/24 Expected End: 08/12/24 Disciplines: FRUIT THINNER Problem: Verbal Expression Dates: Start: 07/12/24 Disciplines: FRUIT THINNER Goal: LTG: Patient will utilize compensatory strategies to communicate wants and needs effectively to different conversational partners, maintain safety and participate socially in a functional living environment Dates: Start: 07/12/24 Expected End: 08/12/24 Disciplines: FRUIT THINNER Goal: STG: Patient will respond to simple/complex open ended questions during activities of daily living with 90% accuracy with minimal cueing Dates: Start: 07/12/24 Expected End: 08/12/24 Disciplines: FRUIT THINNER Goal: STG: Patient will maintain topic of conversation to decrease tangential speech with 90% accuracy with minimal cueing Dates: Start: 07/12/24 Expected End: 08/12/24 Disciplines: FRUIT THINNER Outcomes Date/Time User Outcome 07/16/24 1520 MAGALI Castellanos Progressing Speech Therapy Care Plan (Resolved) There are no resolved problems. Principal Problem: Dementia with behavioral disturbance ([facility]) Active Problems: Altered mental status Status post colostomy, follow-up exam ([facility]) DISCHARGE PLANNING NOTE Resent referral in [facility] to [facility] P#[phone]; F#[phone] sent via secure fax to [phone] Problem: Safety Goal: Patient will be injury free during hospitalization Description: INTERVENTIONS: 1. Assess patient's risk for falls and implement fall prevention plan of care per policy 2. Provide and maintain a safe environment 3. Proper use of double Identifiers 4. Medication administration using the 5 rights 5. Hand hygiene 6. Specimens are labeled at the bedside 7. Instruct patient/ patient passenger relations representative about use of safety devices 8. Include patient/ patient passenger relations representative in decisions related to safety Outcome: Progressing Note: Evaluation of progress towards goal: pain will be adequally controlled to allow for rest and adl's Problem: Knowledge Deficit Goal: Patient/patient passenger relations representative demonstrates understanding of disease process, treatment plan, medications, and discharge instructions Description: INTERVENTIONS 1. Complete learning assessment and assess knowledge base 2. Provide teaching at level of understanding 3. Provide teaching via preferred learning method(s) Outcome: Progressing Note: Evaluation of progress towards goal: pt. Will have knowledge of disease process and treatment by discharge Problem: Discharge Planning Goal: Discharge to post-acute care, other facility, or home with appropriate resources Description: Patient's goal is: INTERVENTIONS 1. Conduct assessment to determine patient/family and health care team treatment goals, and need for post-acute services based on payer coverage, community resources, and patient preferences, and barriers to discharge 2. Coordinate with Social work, Care Navigation, and Utilization Review to arrange appropriate level of services according to patient's needs based on patient preference and payer coverage in collaboration with the physician and health care team 3. Address psychosocial, clinical, and financial barriers to discharge as identified in assessment in conjunction with the patient/family and health care team 4. Consult appropriate ancillary services (i.e.. PT/OT/ST, etc) as needed 5. Communicate with and update the patient/family, physician, and health care team regarding progress on the discharge plan 6. Identify discharge learning needs (meds, wound care, etc). 7. Arrange for needed discharge transportation as appropriate Outcome: Progressing Note: Evaluation of progress towards goal: TBI facility pending acceptance Problem: Neurological Deficit Goal: Neurological status is stable or improving Description: Patient's goal is: INTERVENTIONS 1. Complete Neurological assessment as indicated/ordered 2. Initiate measures to prevent increased intracranial pressure 3. Monitor and assess patient's level of consciousness, motor function, sensory function, and level of assistance needed for ADLs 4. Monitor and report changes from baseline 5. Maintain blood pressure and fluid volume within ordered parameters to optimize cerebral perfusion and minimize risk of hemorrhage 6. Monitor labs and diagnostic tests 7. Administer anti-seizure medications as ordered 8. Maintain airway, patient safety and administer oxygen as ordered 9. Monitor patient for seizure activity, document and report duration and description of seizure to LIP 10. If seizure occurs, turn patient to side and suction secretions as needed 11. Reorient patient post seizure 12. Seizure pads on all 4 side rails 13. Instruct patient/family to notify RN of any seizure activity 14. Instruct patient/family to call for assistance with activity based on assessment 15. Utilize bleeding precautions if thrombolytic given Outcome: Progressing Note: Evaluation of progress towards goal: remains stable goal of baseline Problem: Moderate - High Risk Fall Score Description: Gallegos Fall Score of =/> [address] [facility] Assessment Goal: Patient should be free from fall Description: Interventions: 1. [place] to environment 2. Hourly rounds addressing the 4 P's (Pain, Positioning, Possessions, Potty) 3. Clear area of hazards (spills, clutter, electrical cords, unnecessary equipment) 4. Place equipment (bed & TV controls, call light, phone, urinal) within reach 5. Encourage patient to wear glasses and hearing aides as appropriate 6. Maintain bed in lowest position 7. Lock wheels on bed/wheelchair 8. Provide adequate lighting, including night light 9. Assess need for additional bedding, food/fluids, pain med's prior to sleep/routinely 10. Provide gripper slippers or personal non-skid footwear 11. Teach patient and patient passenger relations representative to maintain environment for safety and engage in all aspects of fall prevention program 12. Remind patient to call for help before getting out of bed 13. Initiate bed/chair/exit alarms supportive devices as appropriate, (chair wedge, no-skid floor mat, raised edge mattress, hip protectors) 14. Locate patient bed assignment for optimal visualization 15. Evaluate and identify Safe Patient Handling Equipment needs 16. Provide supervision when out of bed or chair 17. Utilize gait belt as needed to assist with ambulation 18. Place adaptive equipment (cane, walker) within reach 19. Request patient passenger relations representative bring adaptive equipment/mobility aids from home or obtain and provide as needed 20. Consult pharmacy regarding effects of med's affecting mobility, cognition, and alternatives 21. Obtain physician order for PT if risk factors associated with mobility are present 22. Obtain physician order for OT as appropriate 23. Utilize diversional activities 24. Educate patient and patient passenger relations representative how to maintain a safe environment during visitation times (notify nurse prior to leaving bedside) 25. Consider appropriateness of medical or non-medical reception specialist 26. Set up voiding schedule as appropriate (every 2 hours) Outcome: Progressing Note: Evaluation of progress towards goal: fall bundle DISCHARGE PLANNING NOTE Clinical updates sent to Referrals sent to [facility] (P# [phone] ; F# [phone]) and to [facility] and to [facility] DIS[facility] PL[facility]ING [facility] Via secure fax to [phone]. This is theor fax per phone call to facility. P#[phone]. Provider not in Careport. DISCHARGE PLANNING NOTE Discharge plan- TBD waiting to hear from TBI/IPR who can accept out of the reviewing facilities. [facility] in [facility] called this engineering writer and will call his to discuss. If they are able to accept she would owe private pay for room and board and money is due up front. Updated leadership team and floor nurse. - NANCY PARRISH 07/16/24 8:50 AM Discussed patient today during rounds. Called [facility] and left a VM for admissions to see if they can accept. Awaiting responses from the other facilities to respond. Barriers- acceptance, auth. - NANCY PARRISH 07/16/24 10:58 AM Called admissions at [facility] and [facility] and left VM asking them if they can accept and to call this engineering writer back. Left callback #. - NANCY PARRISH 07/16/24 11:05 AM Still awaiting responses from all reviewing IPR this time. Leadership aware. Called [facility] and spoke with admissions and they will review. Also called [facility] and left another VM. Both in [place] are still reviewing at this time. - NANCY PARRISH 07/16/24 1:39 PM Spoke with patient and to update them that at this time we are awaiting responses from 3 facilities. Leadership aware. - NANCY PARRISH 07/16/24 3:45 PM Problem: Safety Goal: Patient will be injury free during hospitalization Description: INTERVENTIONS: 1. Assess patient's risk for falls and implement fall prevention plan of care per policy 2. Provide and maintain a safe environment 3. Proper use of double Identifiers 4. Medication administration using the 5 rights 5. Hand hygiene 6. Specimens are labeled at the bedside 7. Instruct patient/ patient passenger relations representative about use of safety devices 8. Include patient/ patient passenger relations representative in decisions related to safety Outcome: Progressing Note: Evaluation of progress towards goal: Patient remains injury and fall free. Safety precautions in place: call light within reach, bed in lowest position, personal belongings within reach, oriented to environment, and non-slip footwear on. Problem: Knowledge Deficit Goal: Patient/patient passenger relations representative demonstrates understanding of disease process, treatment plan, medications, and discharge instructions Description: INTERVENTIONS 1. Complete learning assessment and assess knowledge base 2. Provide teaching at level of understanding 3. Provide teaching via preferred learning method(s) Outcome: Progressing Note: Evaluation of progress towards goal: Patient and family educated on treatment plan and discharge updated. Patient need reinforced education. Problem: Discharge Planning Goal: Discharge to post-acute care, other facility, or home with appropriate resources Description: Patient's goal is: INTERVENTIONS 1. Conduct assessment to determine patient/family and health care team treatment goals, and need for post-acute services based on payer coverage, community resources, and patient preferences, and barriers to discharge 2. Coordinate with Social work, Care Navigation, and Utilization Review to arrange appropriate level of services according to patient's needs based on patient preference and payer coverage in collaboration with the physician and health care team 3. Address psychosocial, clinical, and financial barriers to discharge as identified in assessment in conjunction with the patient/family and health care team 4. Consult appropriate ancillary services (i.e.. PT/OT/ST, etc) as needed 5. Communicate with and update the patient/family, physician, and health care team regarding progress on the discharge plan 6. Identify discharge learning needs (meds, wound care, etc). 7. Arrange for needed discharge transportation as appropriate Outcome: Progressing Note: Evaluation of progress towards goal: Patient and family educated on treatment plan and discharge updated. Patient need reinforced education. Problem: Neurological Deficit Goal: Neurological status is stable or improving Description: Patient's goal is: INTERVENTIONS 1. Complete Neurological assessment as indicated/ordered 2. Initiate measures to prevent increased intracranial pressure 3. Monitor and assess patient's level of consciousness, motor function, sensory function, and level of assistance needed for ADLs 4. Monitor and report changes from baseline 5. Maintain blood pressure and fluid volume within ordered parameters to optimize cerebral perfusion and minimize risk of hemorrhage 6. Monitor labs and diagnostic tests 7. Administer anti-seizure medications as ordered 8. Maintain airway, patient safety and administer oxygen as ordered 9. Monitor patient for seizure activity, document and report duration and description of seizure to LIP 10. If seizure occurs, turn patient to side and suction secretions as needed 11. Reorient patient post seizure 12. Seizure pads on all 4 side rails 13. Instruct patient/family to notify RN of any seizure activity 14. Instruct patient/family to call for assistance with activity based on assessment 15. Utilize bleeding precautions if thrombolytic given Outcome: Progressing Note: Evaluation of progress towards goal: Assess and report any changes in neurological status. Neurological status and vital signs q4h and with any changes in condition. Problem: Anxiety Goal: Anxiety is at manageable level Description: Patient's goal is: INTERVENTIONS 1. Assess and monitor patient's anxiety level 2. Monitor for signs and symptoms of anxiety both physical and emotional (heart palpitations, chest pain, shortness of breath, headaches, nausea, feeling jumpy, restlessness, irritable, apprehensive) 3. Reorient/orient patient to unit/surroundings 4. Explain treatment plan 5. Explain tests/procedures prior to initiation 6. Encourage participation in care 7. Encourage verbalization of concerns/fears 8. Assess coping mechanisms 9. Assist in developing anxiety-reducing skills 10. Administer complimentary therapies 11. Manage patient's environment 12. Limit or eliminate stimulants such as caffeine and nicotine 13. Collaborate with ancillary departments 14. Include patient/patient passenger relations representative in decisions related to anxiety Outcome: Progressing Note: Evaluation of progress towards goal: Patient's anxiety appears to be at manageable level. Problem: Moderate - High Risk Fall Score Description: Gallegos Fall Score of =/> [address] [facility] Assessment Goal: Patient should be free from fall Description: Interventions: 1. [place] to environment 2. Hourly rounds addressing the 4 P's (Pain, Positioning, Possessions, Potty) 3. Clear area of hazards (spills, clutter, electrical cords, unnecessary equipment) 4. Place equipment (bed & TV controls, call light, phone, urinal) within reach 5. Encourage patient to wear glasses and hearing aides as appropriate 6. Maintain bed in lowest position 7. Lock wheels on bed/wheelchair 8. Provide adequate lighting, including night light 9. Assess need for additional bedding, food/fluids, pain med's prior to sleep/routinely 10. Provide gripper slippers or personal non-skid footwear 11. Teach patient and patient passenger relations representative to maintain environment for safety and engage in all aspects of fall prevention program 12. Remind patient to call for help before getting out of bed 13. Initiate bed/chair/exit alarms supportive devices as appropriate, (chair wedge, no-skid floor mat, raised edge mattress, hip protectors) 14. Locate patient bed assignment for optimal visualization 15. Evaluate and identify Safe Patient Handling Equipment needs 16. Provide supervision when out of bed or chair 17. Utilize gait belt as needed to assist with ambulation 18. Place adaptive equipment (cane, walker) within reach 19. Request patient passenger relations representative bring adaptive equipment/mobility aids from home or obtain and provide as needed 20. Consult pharmacy regarding effects of med's affecting mobility, cognition, and alternatives 21. Obtain physician order for PT if risk factors associated with mobility are present 22. Obtain physician order for OT as appropriate 23. Utilize diversional activities 24. Educate patient and patient passenger relations representative how to maintain a safe environment during visitation times (notify nurse prior to leaving bedside) 25. Consider appropriateness of medical or non-medical reception specialist 26. Set up voiding schedule as appropriate (every 2 hours) Outcome: Progressing Note: Evaluation of progress towards goal: Patient remains injury and fall free. Safety precautions in place: call light within reach, bed in lowest position, personal belongings within reach, oriented to environment, and non-slip footwear on. Problem: Safety Goal: Patient will be injury free during hospitalization Description: INTERVENTIONS: 1. Assess patient's risk for falls and implement fall prevention plan of care per policy 2. Provide and maintain a safe environment 3. Proper use of double Identifiers 4. Medication administration using the 5 rights 5. Hand hygiene 6. Specimens are labeled at the bedside 7. Instruct patient/ patient passenger relations representative about use of safety devices 8. Include patient/ patient passenger relations representative in decisions related to safety Outcome: Progressing Note: Evaluation of progress towards goal: Pt is free from injury Problem: Neurological Deficit Goal: Neurological status is stable or improving Description: Patient's goal is: INTERVENTIONS 1. Complete Neurological assessment as indicated/ordered 2. Initiate measures to prevent increased intracranial pressure 3. Monitor and assess patient's level of consciousness, motor function, sensory function, and level of assistance needed for ADLs 4. Monitor and report changes from baseline 5. Maintain blood pressure and fluid volume within ordered parameters to optimize cerebral perfusion and minimize risk of hemorrhage 6. Monitor labs and diagnostic tests 7. Administer anti-seizure medications as ordered 8. Maintain airway, patient safety and administer oxygen as ordered 9. Monitor patient for seizure activity, document and report duration and description of seizure to LIP 10. If seizure occurs, turn patient to side and suction secretions as needed 11. Reorient patient post seizure 12. Seizure pads on all 4 side rails 13. Instruct patient/family to notify RN of any seizure activity 14. Instruct patient/family to call for assistance with activity based on assessment 15. Utilize bleeding precautions if thrombolytic given Outcome: Progressing Note: Evaluation of progress towards goal: Pt is neurologically stable Problem: Moderate - High Risk Fall Score Description: Gallegos Fall Score of =/> [address] [facility] Assessment Goal: Patient should be free from fall Description: Interventions: 1. [place] to environment 2. Hourly rounds addressing the 4 P's (Pain, Positioning, Possessions, Potty) 3. Clear area of hazards (spills, clutter, electrical cords, unnecessary equipment) 4. Place equipment (bed & TV controls, call light, phone, urinal) within reach 5. Encourage patient to wear glasses and hearing aides as appropriate 6. Maintain bed in lowest position 7. Lock wheels on bed/wheelchair 8. Provide adequate lighting, including night light 9. Assess need for additional bedding, food/fluids, pain med's prior to sleep/routinely 10. Provide gripper slippers or personal non-skid footwear 11. Teach patient and patient passenger relations representative to maintain environment for safety and engage in all aspects of fall prevention program 12. Remind patient to call for help before getting out of bed 13. Initiate bed/chair/exit alarms supportive devices as appropriate, (chair wedge, no-skid floor mat, raised edge mattress, hip protectors) 14. Locate patient bed assignment for optimal visualization 15. Evaluate and identify Safe Patient Handling Equipment needs 16. Provide supervision when out of bed or chair 17. Utilize gait belt as needed to assist with ambulation 18. Place adaptive equipment (cane, walker) within reach 19. Request patient passenger relations representative bring adaptive equipment/mobility aids from home or obtain and provide as needed 20. Consult pharmacy regarding effects of med's affecting mobility, cognition, and alternatives 21. Obtain physician order for PT if risk factors associated with mobility are present 22. Obtain physician order for OT as appropriate 23. Utilize diversional activities 24. Educate patient and patient passenger relations representative how to maintain a safe environment during visitation times (notify nurse prior to leaving bedside) 25. Consider appropriateness of medical or non-medical reception specialist 26. Set up voiding schedule as appropriate (every 2 hours) Outcome: Progressing Note: Evaluation of progress towards goal: Pt is free from falls. Problem: Safety Goal: Patient will be injury free during hospitalization Description: INTERVENTIONS: 1. Assess patient's risk for falls and implement fall prevention plan of care per policy 2. Provide and maintain a safe environment 3. Proper use of double Identifiers 4. Medication administration using the 5 rights 5. Hand hygiene 6. Specimens are labeled at the bedside 7. Instruct patient/ patient passenger relations representative about use of safety devices 8. Include patient/ patient passenger relations representative in decisions related to safety Outcome: Progressing Note: Evaluation of progress towards goal: Proper identifiers used with patient care and medication administration. Remains free of injury during shift Problem: Knowledge Deficit Goal: Patient/patient passenger relations representative demonstrates understanding of disease process, treatment plan, medications, and discharge instructions Description: INTERVENTIONS 1. Complete learning assessment and assess knowledge base 2. Provide teaching at level of understanding 3. Provide teaching via preferred learning method(s) Outcome: Progressing Note: Evaluation of progress towards goal: Verbalizes understanding of current treatment plan as educated. Will continue to educate for understanding. Problem: Discharge Planning Goal: Discharge to post-acute care, other facility, or home with appropriate resources Description: Patient's goal is: INTERVENTIONS 1. Conduct assessment to determine patient/family and health care team treatment goals, and need for post-acute services based on payer coverage, community resources, and patient preferences, and barriers to discharge 2. Coordinate with Social work, Care Navigation, and Utilization Review to arrange appropriate level of services according to patient's needs based on patient preference and payer coverage in collaboration with the physician and health care team 3. Address psychosocial, clinical, and financial barriers to discharge as identified in assessment in conjunction with the patient/family and health care team 4. Consult appropriate ancillary services (i.e.. PT/OT/ST, etc) as needed 5. Communicate with and update the patient/family, physician, and health care team regarding progress on the discharge plan 6. Identify discharge learning needs (meds, wound care, etc). 7. Arrange for needed discharge transportation as appropriate Outcome: Progressing Note: Evaluation of progress towards goal: Discharge planning in process. Will continue to monitor for discharge needs. Problem: Neurological Deficit Goal: Neurological status is stable or improving Description: Patient's goal is: INTERVENTIONS 1. Complete Neurological assessment as indicated/ordered 2. Initiate measures to prevent increased intracranial pressure 3. Monitor and assess patient's level of consciousness, motor function, sensory function, and level of assistance needed for ADLs 4. Monitor and report changes from baseline 5. Maintain blood pressure and fluid volume within ordered parameters to optimize cerebral perfusion and minimize risk of hemorrhage 6. Monitor labs and diagnostic tests 7. Administer anti-seizure medications as ordered 8. Maintain airway, patient safety and administer oxygen as ordered 9. Monitor patient for seizure activity, document and report duration and description of seizure to LIP 10. If seizure occurs, turn patient to side and suction secretions as needed 11. Reorient patient post seizure 12. Seizure pads on all 4 side rails 13. Instruct patient/family to notify RN of any seizure activity 14. Instruct patient/family to call for assistance with activity based on assessment 15. Utilize bleeding precautions if thrombolytic given Outcome: Progressing Note: Evaluation of progress towards goal: Neurological status evaluated for orientation, level of consciousness, motor function and sensory perception. Problem: Anxiety Goal: Anxiety is at manageable level Description: Patient's goal is: INTERVENTIONS 1. Assess and monitor patient's anxiety level 2. Monitor for signs and symptoms of anxiety both physical and emotional (heart palpitations, chest pain, shortness of breath, headaches, nausea, feeling jumpy, restlessness, irritable, apprehensive) 3. Reorient/orient patient to unit/surroundings 4. Explain treatment plan 5. Explain tests/procedures prior to initiation 6. Encourage participation in care 7. Encourage verbalization of concerns/fears 8. Assess coping mechanisms 9. Assist in developing anxiety-reducing skills 10. Administer complimentary therapies 11. Manage patient's environment 12. Limit or eliminate stimulants such as caffeine and nicotine 13. Collaborate with ancillary departments 14. Include patient/patient passenger relations representative in decisions related to anxiety Outcome: Progressing Note: Evaluation of progress towards goal: Patient verbalizes a tolerable anxiety level and remains free of signs and symptoms of anxiety. Will continue to explain treatment plan and monitor for changes in anxiety levels. Problem: Moderate - High Risk Fall Score Description: Gallegos Fall Score of =/> [address] [facility] Assessment Goal: Patient should be free from fall Description: Interventions: 1. [place] to environment 2. Hourly rounds addressing the 4 P's (Pain, Positioning, Possessions, Potty) 3. Clear area of hazards (spills, clutter, electrical cords, unnecessary equipment) 4. Place equipment (bed & TV controls, call light, phone, urinal) within reach 5. Encourage patient to wear glasses and hearing aides as appropriate 6. Maintain bed in lowest position 7. Lock wheels on bed/wheelchair 8. Provide adequate lighting, including night light 9. Assess need for additional bedding, food/fluids, pain med's prior to sleep/routinely 10. Provide gripper slippers or personal non-skid footwear 11. Teach patient and patient passenger relations representative to maintain environment for safety and engage in all aspects of fall prevention program 12. Remind patient to call for help before getting out of bed 13. Initiate bed/chair/exit alarms supportive devices as appropriate, (chair wedge, no-skid floor mat, raised edge mattress, hip protectors) 14. Locate patient bed assignment for optimal visualization 15. Evaluate and identify Safe Patient Handling Equipment needs 16. Provide supervision when out of bed or chair 17. Utilize gait belt as needed to assist with ambulation 18. Place adaptive equipment (cane, walker) within reach 19. Request patient passenger relations representative bring adaptive equipment/mobility aids from home or obtain and provide as needed 20. Consult pharmacy regarding effects of med's affecting mobility, cognition, and alternatives 21. Obtain physician order for PT if risk factors associated with mobility are present 22. Obtain physician order for OT as appropriate 23. Utilize diversional activities 24. Educate patient and patient passenger relations representative how to maintain a safe environment during visitation times (notify nurse prior to leaving bedside) 25. Consider appropriateness of medical or non-medical reception specialist 26. Set up voiding schedule as appropriate (every 2 hours) Outcome: Progressing Note: Evaluation of progress towards goal: Call light within reach. Remains free of fall or injury. Environment free of clutter. Problem: Safety Goal: Patient will be injury free during hospitalization Description: INTERVENTIONS: 1. Assess patient's risk for falls and implement fall prevention plan of care per policy 2. Provide and maintain a safe environment 3. Proper use of double Identifiers 4. Medication administration using the 5 rights 5. Hand hygiene 6. Specimens are labeled at the bedside 7. Instruct patient/ patient passenger relations representative about use of safety devices 8. Include patient/ patient passenger relations representative in decisions related to safety Outcome: Progressing Note: Evaluation of progress towards goal: pain will be controlled to allow for rest and adl's Problem: Knowledge Deficit Goal: Patient/patient passenger relations representative demonstrates understanding of disease process, treatment plan, medications, and discharge instructions Description: INTERVENTIONS 1. Complete learning assessment and assess knowledge base 2. Provide teaching at level of understanding 3. Provide teaching via preferred learning method(s) Outcome: Progressing Note: Evaluation of progress towards goal: pt. Will have knoweldge of disease process and treatment by discharge Problem: Discharge Planning Goal: Discharge to post-acute care, other facility, or home with appropriate resources Description: Patient's goal is: INTERVENTIONS 1. Conduct assessment to determine patient/family and health care team treatment goals, and need for post-acute services based on payer coverage, community resources, and patient preferences, and barriers to discharge 2. Coordinate with Social work, Care Navigation, and Utilization Review to arrange appropriate level of services according to patient's needs based on patient preference and payer coverage in collaboration with the physician and health care team 3. Address psychosocial, clinical, and financial barriers to discharge as identified in assessment in conjunction with the patient/family and health care team 4. Consult appropriate ancillary services (i.e.. PT/OT/ST, etc) as needed 5. Communicate with and update the patient/family, physician, and health care team regarding progress on the discharge plan 6. Identify discharge learning needs (meds, wound care, etc). 7. Arrange for needed discharge transportation as appropriate Outcome: Progressing Note: Evaluation of progress towards goal: IPR Problem: Neurological Deficit Goal: Neurological status is stable or improving Description: Patient's goal is: INTERVENTIONS 1. Complete Neurological assessment as indicated/ordered 2. Initiate measures to prevent increased intracranial pressure 3. Monitor and assess patient's level of consciousness, motor function, sensory function, and level of assistance needed for ADLs 4. Monitor and report changes from baseline 5. Maintain blood pressure and fluid volume within ordered parameters to optimize cerebral perfusion and minimize risk of hemorrhage 6. Monitor labs and diagnostic tests 7. Administer anti-seizure medications as ordered 8. Maintain airway, patient safety and administer oxygen as ordered 9. Monitor patient for seizure activity, document and report duration and description of seizure to LIP 10. If seizure occurs, turn patient to side and suction secretions as needed 11. Reorient patient post seizure 12. Seizure pads on all 4 side rails 13. Instruct patient/family to notify RN of any seizure activity 14. Instruct patient/family to call for assistance with activity based on assessment 15. Utilize bleeding precautions if thrombolytic given Outcome: Progressing Note: Evaluation of progress towards goal: remains stable- goal of baseline Problem: Anxiety Goal: Anxiety is at manageable level Description: Patient's goal is: INTERVENTIONS 1. Assess and monitor patient's anxiety level 2. Monitor for signs and symptoms of anxiety both physical and emotional (heart palpitations, chest pain, shortness of breath, headaches, nausea, feeling jumpy, restlessness, irritable, apprehensive) 3. Reorient/orient patient to unit/surroundings 4. Explain treatment plan 5. Explain tests/procedures prior to initiation 6. Encourage participation in care 7. Encourage verbalization of concerns/fears 8. Assess coping mechanisms 9. Assist in developing anxiety-reducing skills 10. Administer complimentary therapies 11. Manage patient's environment 12. Limit or eliminate stimulants such as caffeine and nicotine 13. Collaborate with ancillary departments 14. Include patient/patient passenger relations representative in decisions related to anxiety Outcome: Progressing Note: Evaluation of progress towards goal: listen and reassuring Problem: Moderate - High Risk Fall Score Description: Gallegos Fall Score of =/> [address] [facility] Assessment Goal: Patient should be free from fall Description: Interventions: 1. [place] to environment 2. Hourly rounds addressing the 4 P's (Pain, Positioning, Possessions, Potty) 3. Clear area of hazards (spills, clutter, electrical cords, unnecessary equipment) 4. Place equipment (bed & TV controls, call light, phone, urinal) within reach 5. Encourage patient to wear glasses and hearing aides as appropriate 6. Maintain bed in lowest position 7. Lock wheels on bed/wheelchair 8. Provide adequate lighting, including night light 9. Assess need for additional bedding, food/fluids, pain med's prior to sleep/routinely 10. Provide gripper slippers or personal non-skid footwear 11. Teach patient and patient passenger relations representative to maintain environment for safety and engage in all aspects of fall prevention program 12. Remind patient to call for help before getting out of bed 13. Initiate bed/chair/exit alarms supportive devices as appropriate, (chair wedge, no-skid floor mat, raised edge mattress, hip protectors) 14. Locate patient bed assignment for optimal visualization 15. Evaluate and identify Safe Patient Handling Equipment needs 16. Provide supervision when out of bed or chair 17. Utilize gait belt as needed to assist with ambulation 18. Place adaptive equipment (cane, walker) within reach 19. Request patient passenger relations representative bring adaptive equipment/mobility aids from home or obtain and provide as needed 20. Consult pharmacy regarding effects of med's affecting mobility, cognition, and alternatives 21. Obtain physician order for PT if risk factors associated with mobility are present 22. Obtain physician order for OT as appropriate 23. Utilize diversional activities 24. Educate patient and patient passenger relations representative how to maintain a safe environment during visitation times (notify nurse prior to leaving bedside) 25. Consider appropriateness of medical or non-medical reception specialist 26. Set up voiding schedule as appropriate (every 2 hours) Outcome: Progressing Note: Evaluation of progress towards goal: fallbundle DISCHARGE PLANNING NOTE Referrals sent to [facility] (P# [phone] ; F# [phone]) and to [facility] and to [facility] and to [facility] in [facility] p#: [phone] f#: [phone] DISCHARGE PLANNING NOTE Follow-up Discharge Planning Progress Note Per RN during discharge transition rounds, barriers to discharge are: Accepting acute inpatient rehabilitation center. Discharge Plan: Roll Forming Machine Operator followed up with patient, spouse and patient sister at bedside. Updated, [facility], not accepting, not in network with patient insurance and unable to accommodate patient clinical needs. Discussed in detail choices and acceptance process-each individual hospital review and determine if in network with insurance, clinical accommodations and bed availability. If facility can accept, then insurance would need to approve or deny, discussed denial process including peer to peer and appeal, and appeal is last option with insurance company. Updated once insurance outcome in process, our team have to wait for outcome-we have no decision on approval or denial. Discussed lower levels of care such as [facility] and Home care. Patient spouse and sister verbalized understanding. Choices received. [facility] tasked to send referrals. Attempted to contact Jaciel Venegas, admission office closed on weekend. Care Navigation will continue to follow for any discharge needs. - Shweta Delgado RN 07/14/24 1:22 PM Problem: Safety Goal: Patient will be injury free during hospitalization Description: INTERVENTIONS: 1. Assess patient's risk for falls and implement fall prevention plan of care per policy 2. Provide and maintain a safe environment 3. Proper use of double Identifiers 4. Medication administration using the 5 rights 5. Hand hygiene 6. Specimens are labeled at the bedside 7. Instruct patient/ patient passenger relations representative about use of safety devices 8. Include patient/ patient passenger relations representative in decisions related to safety Outcome: Progressing Note: Evaluation of progress towards goal: Proper identifiers used with patient care and medication administration. Remains free of injury during shift Problem: Knowledge Deficit Goal: Patient/patient passenger relations representative demonstrates understanding of disease process, treatment plan, medications, and discharge instructions Description: INTERVENTIONS 1. Complete learning assessment and assess knowledge base 2. Provide teaching at level of understanding 3. Provide teaching via preferred learning method(s) Outcome: Progressing Note: Evaluation of progress towards goal: Verbalizes understanding of current treatment plan as educated. Will continue to educate for understanding. Problem: Discharge Planning Goal: Discharge to post-acute care, other facility, or home with appropriate resources Description: Patient's goal is: INTERVENTIONS 1. Conduct assessment to determine patient/family and health care team treatment goals, and need for post-acute services based on payer coverage, community resources, and patient preferences, and barriers to discharge 2. Coordinate with Social work, Care Navigation, and Utilization Review to arrange appropriate level of services according to patient's needs based on patient preference and payer coverage in collaboration with the physician and health care team 3. Address psychosocial, clinical, and financial barriers to discharge as identified in assessment in conjunction with the patient/family and health care team 4. Consult appropriate ancillary services (i.e.. PT/OT/ST, etc) as needed 5. Communicate with and update the patient/family, physician, and health care team regarding progress on the discharge plan 6. Identify discharge learning needs (meds, wound care, etc). 7. Arrange for needed discharge transportation as appropriate Outcome: Progressing Note: Evaluation of progress towards goal: Discharge planning in process. Will continue to monitor for discharge needs. Problem: Neurological Deficit Goal: Neurological status is stable or improving Description: Patient's goal is: INTERVENTIONS 1. Complete Neurological assessment as indicated/ordered 2. Initiate measures to prevent increased intracranial pressure 3. Monitor and assess patient's level of consciousness, motor function, sensory function, and level of assistance needed for ADLs 4. Monitor and report changes from baseline 5. Maintain blood pressure and fluid volume within ordered parameters to optimize cerebral perfusion and minimize risk of hemorrhage 6. Monitor labs and diagnostic tests 7. Administer anti-seizure medications as ordered 8. Maintain airway, patient safety and administer oxygen as ordered 9. Monitor patient for seizure activity, document and report duration and description of seizure to LIP 10. If seizure occurs, turn patient to side and suction secretions as needed 11. Reorient patient post seizure 12. Seizure pads on all 4 side rails 13. Instruct patient/family to notify RN of any seizure activity 14. Instruct patient/family to call for assistance with activity based on assessment 15. Utilize bleeding precautions if thrombolytic given Outcome: Progressing Note: Evaluation of progress towards goal: Neurological status evaluated for orientation, level of consciousness, motor function and sensory perception. Problem: Anxiety Goal: Anxiety is at manageable level Description: Patient's goal is: INTERVENTIONS 1. Assess and monitor patient's anxiety level 2. Monitor for signs and symptoms of anxiety both physical and emotional (heart palpitations, chest pain, shortness of breath, headaches, nausea, feeling jumpy, restlessness, irritable, apprehensive) 3. Reorient/orient patient to unit/surroundings 4. Explain treatment plan 5. Explain tests/procedures prior to initiation 6. Encourage participation in care 7. Encourage verbalization of concerns/fears 8. Assess coping mechanisms 9. Assist in developing anxiety-reducing skills 10. Administer complimentary therapies 11. Manage patient's environment 12. Limit or eliminate stimulants such as caffeine and nicotine 13. Collaborate with ancillary departments 14. Include patient/patient passenger relations representative in decisions related to anxiety Outcome: Progressing Note: Evaluation of progress towards goal: Patient remains free of signs and symptoms of anxiety. Will continue to explain treatment plan and monitor for changes in anxiety levels. Problem: Moderate - High Risk Fall Score Description: Gallegos Fall Score of =/> 25 or indicated by [facility] Assessment Goal: Patient should be free from fall Description: Interventions: 1. [place] to environment 2. Hourly rounds addressing the 4 P's (Pain, Positioning, Possessions, Potty) 3. Clear area of hazards (spills, clutter, electrical cords, unnecessary equipment) 4. Place equipment (bed & TV controls, call light, phone, urinal) within reach 5. Encourage patient to wear glasses and hearing aides as appropriate 6. Maintain bed in lowest position 7. Lock wheels on bed/wheelchair 8. Provide adequate lighting, including night light 9. Assess need for additional bedding, food/fluids, pain med's prior to sleep/routinely 10. Provide gripper slippers or personal non-skid footwear 11. Teach patient and patient passenger relations representative to maintain environment for safety and engage in all aspects of fall prevention program 12. Remind patient to call for help before getting out of bed 13. Initiate bed/chair/exit alarms supportive devices as appropriate, (chair wedge, no-skid floor mat, raised edge mattress, hip protectors) 14. Locate patient bed assignment for optimal visualization 15. Evaluate and identify Safe Patient Handling Equipment needs 16. Provide supervision when out of bed or chair 17. Utilize gait belt as needed to assist with ambulation 18. Place adaptive equipment (cane, walker) within reach 19. Request patient passenger relations representative bring adaptive equipment/mobility aids from home or obtain and provide as needed 20. Consult pharmacy regarding effects of med's affecting mobility, cognition, and alternatives 21. Obtain physician order for PT if risk factors associated with mobility are present 22. Obtain physician order for OT as appropriate 23. Utilize diversional activities 24. Educate patient and patient passenger relations representative how to maintain a safe environment during visitation times (notify nurse prior to leaving bedside) 25. Consider appropriateness of medical or non-medical reception specialist 26. Set up voiding schedule as appropriate (every 2 hours) Outcome: Progressing Note: Evaluation of progress towards goal: Call light within reach. Remains free of fall or injury. Environment free of clutter. Problem: Safety - Medical Restraint Goal: Remains free of injury from restraints (Restraint for Interference with Hydrogen Power Plant Manager) Description: INTERVENTIONS: 1. Determine that other, less restrictive measures have been tried or would not be effective before applying the restraint 2. Evaluate the patient's condition at the time of restraint application 3. Inform patient/family regarding the reason for restraint 4. Q2H: Monitor safety, Vital signs, psychosocial status, signs of injury, skin integrity, circulation, neurovascular status in affected extremities, respiratory status, comfort, nutrition and hydration, hygiene, ROM, elimination needs 5. Doctor will be notified of restraint 6. RN properly applies restraints per physician order Outcome: Completed Goal: Free from restraint(s) (Restraint for Interference with Hydrogen Power Plant Manager) Description: INTERVENTIONS: 1. ONCE/SHIFT or MINIMUM Q12H: Assess and document the continuing need for restraints 2. Order is valid for the duration of the episode of care 3. Discontinue at the earliest possible time once the reason for restraints no longer exists 4. Identify and implement measures to help patient regain control 5. Food, fluids, and toilet offered at a minimum of every 2 hours 6. RN modifies the patient's plan of care by entering a problem statement related to safety; individualizes the safety outcome Outcome: Completed Per Lesia VLILANUEVA patient's and sister were very upset that [facility] did not accept patient. They declined to offer any other choices for facilities to her at this time. Lesia encouraged them to allow her to make referrals to some TBI facilities at [facility] and in [place] but at this time they are angry that [facility] did not accept patient. Roll Forming Machine Operator will request SW follow up with them in the morning to obtain choices to continue developing a transition of care plan. DISCHARGE PLANNING NOTE Referral sent to [facility] P#[phone]; F#[phone]); [facility] P# [phone] [calling report];/[facility] (P# [calling report]; F# ) DISCHARGE PLANNING NOTE Per RN during discharge transition rounds, barriers to discharge are: Telesitter, PMR re-eval, Seroquel dose adjustment. Discharge Plan: [facility] for TBI rehab. PT/OT recommended [facility]. CN met with and sister Ewa. wants a referral sent to [facility]. CN discussed discharge and making referrals to other TBI/ IPR rehabs in the state, and sister stated they are putting all their zak in [facility] being able to accept the patient. Manager New Product will continue to follow for any discharge needs. - Lesia Caba RN 07/13/24 12:18 PM Addendum: [facility] with patients [employer] insurance. gave CN two more choices : [facility] and [facility] rehab. [facility] tasked to send referrals. and sister are calling insurance to ask about a one time contract to [facility]. Ethel , [facility] rep, stopped in to talk to and sister. - Lesia Caba RN 07/13/24 2:10 PM Addendum: Patient's and sister asked CN to listen and talk to insurance adjuster regarding a one time approval for the [facility]: [facility]. Tax Attorney Xiomy with [facility] [employer] stated attending or managing physician needs to document patient's health status and progression, information on why the patient needs to go this specific facility for rehab, include diagnosis codes and services codes. Fax: Prior Auth Request to [phone] attn: Prior Auth Request at [employer]. CN sent pic chat to Dr. Nichol Heath. Dr. Heath asked if there is a form to fill out. CN called [facility] to see if they have generic PA request form. - Lesia Caba RN 07/13/24 3:15 PM [facility] was asked to review referral by CN leadership, and see if they can accept patient , then if they can accept the referral, [facility] can do the prior auth to the insurance for he one time approval. CN spoke to and other family member re: the process to see if [facility] can accept. - Lesia Caba RN 07/13/24 3:51 PM DISCHARGE PLANNING NOTE Referral to [facility] (P# ; F# ) Occupational Therapy Evaluation Discharge Recommendations OT Recommendations : Inpatient Rehab Inpatient Rehab Criteria: All inpatient rehab criteria expected to be met (patient would benefit from rehab to address cognition, ADL, endurance. Patient was able to drive in Dec and was able to complete ADL tasks. Patient is not able to do so currently.) 6 Clicks: Daily Activity Putting on and taking off regular lower body clothing?: A lot Bathing (including washing, rinsing, drying)?: A lot Toileting, which includes using toilet, bedpan or urinal?: A lot Putting on and taking off regular upper body clothing?: A little Taking care of personal grooming such as brushing teeth?: A lot Eating meals?: None Scoring Daily Activity Raw Score: 15 CMS G Code Modifier: CK Occupational Profile Patient is a 58 year old male admitted with decline in cognition. Patient was functioning normally up until Jun 09, 2024. Patient was able to complete ADL tasks and drive at that time. Patient had fall at home. Patient had behavioral changes with sharp decline in mental status after fall. 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 Impression: acute decline in mental status after fall in May 2024 in setting of early onset alzheimers disease, possibly secondary to concussion versus TBI with agitation. 07-10-2024: lumbar puncture. CSF. Biomarkers in past confirmed early onset alzheimers disease. Patient was independent with ADL tasks and driving May 2024. Patient does not use a cane or walker. Patient is retired. See below for past medical and past surgical history. Past Medical History: Diagnosis Date GERD (gastroesophageal reflux disease) High cholesterol Perforated sigmoid colon ([facility]) Past Surgical History: Procedure Laterality Date ARM EXPLORATION WITH REPAIR LACERATED ULNAR ARTERY Left 11/24/2019 Performed by Skyler Bowen MD at [facility] 3YEARS AGO COLOSTOMY CLOSURE Therapy Plan Need for skilled Occupational Therapy to address deficits in ADL independence and functional mobility due to a status decline resulting from decline in cognition and fall Jun 09, 2024 Recommended Consults: PM&R consult OT Treatment/Interventions: ADL retraining, Cognitive reorientation, Balance, Bed mobility, Functional transfer training, Patient/family training, Home management, Functional activities, Equipment eval/education OT Frequency: 3-4days/week OT Duration: aug 13, 2024 Assessment Patient Assessment Therapy Problem List: Decreased ADL status, Decreased balance, Decreased cognition, Decreased endurance, Decreased high-level ADLs, Decreased mobility, Decreased safe judgement during ADL, Decreased self-care trans Patient Response to Treatment: Slow progress, cognitive deficits Mood/Affect: Appropriate for circumstances Rehab Prognosis: With continued OT status post acute discharge, Good Visit RN Communication: Yes Medical Record Reviewed: Yes OT Type of Visit: Evaluation Precautions Activity: advance activity as tolerate per early mobility guidelines. Equipment: gait belt, telemetry Telemetry/Huc: Yes Oxygen Used: room air Other: fall risk, history of Alzheimers, fall May 2024 Pain Assessment Pain Assessment: No/denies pain Home Living Type of Home: House Home Layout: Two level, Bed/bath upstairs, Other (Comment) (full bath on main floor and can sleep on main floor.) Stairs to Enter: 3 in with bilateral rails Bathroom Shower/Tub: Tub/shower unit (tub shower has hand held and walk in shower has seat and hand held.) Other : no walker or cane. Prior Function Lives With: Spouse (lives with Kari who does not work.) Level of Mobility: Independent with ADLs and functional transfers or gait Homemaking Assistance: ( does household tasks.) Vocational: Retired Other: patient was able to drive May 2024. Patient was last independent with all care May 2024. patient had fall Jun 09, 2024 and has trouble since. Patient was able to complete all ADL tasks prior to fall. does houehold tasks. ADL / IADL Where Assessed: Supine, bed, Edge of bed, Chair (patient left up in chair with call light in reach and RNNeela aware. in room with patient.) Eating Assistance: Setup Grooming Assistance: Min assist Bathing/Showering Assistance: Min assist Toilet/Commode Assistance: Min assist UE Dressing Assistance: Min assist LE Dressing Assistance: Min assist Footwear Assistance: Min assist Other: patient has trouble executing tasks. patient was able to ambulate into bathroom with contact guard. patient required min assist to doff underware and pants. 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 Patient was unable to void due to trouble with processing, safety and judgement. Home Management - IADL Other: patient has trouble executing tasks. patient was able to ambulate into bathroom with contact guard. patient required min assist to doff underware and pants. 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 Patient was unable to void due to trouble with processing, safety and judgement. Hearing / Speech / Vision Hearing: Within Functional Limits Speech: Within Functional Limits Cognition Overall Cognitive Status: Exceptions to Within Functional Limits Arousal/Alertness: Delayed responses to stimuli Orientation Level: Oriented to person (patient was not able to recognize liliat was not able to recall date of or age.) Safety Judgment: Decreased awareness of need for assistance Awareness of Errors: Decreased awareness of errors, Assistance required to identify errors made, Assistance required to correct errors made Insight of Deficits: Decreased awareness of deficits Problem Solving: Nonfunctional Interfering Components: Processing speed, Working memory, Attention - divided, Attention to detail Sensation Overall Sensation Status: Within Functional Limits Bed Mobility Supine to Sit: Stand by assist Transfers Sit to Stand: Contact guard assist, Verbal cues Stand to Sit: Contact guard assist, Verbal cues Toilet Transfers: Min assist, Verbal cues Gait Gait Assistance: Contact guard assist, Verbal cues Assistive Device: None Gait Distance: 250 feet with contact guard and min verbal cues for safety, slight loss of balance times 2 with ability to recover on his own. Limiting Factors to Gait: Cognition/difficulty following directions, Decreased safety Balance Sitting Balance: Static: Good Sitting Balance: Dynamic: Good Standing Balance: Static: Good Standing Balance: Dynamic: Fair RUE Assessment: Within Functional Limits LUE Assessment: Within Functional Limits Activity Tolerance Endurance: Tolerates 30 minutes activity with rest breaks Other: room air Plan Occupational Therapy Care Plan Occupational Therapy Care Plan (Active) Template: OT - Occupational Therapy Problem: Activity Tolerance Dates: Start: 07/13/24 Disciplines: OT Goal: No limitations to activity tolerance Dates: Start: 07/13/24 Expected End: 08/13/24 Description: Goal Description: Disciplines: OT Problem: Bathing LB Dates: Start: 07/13/24 Disciplines: OT Goal: Patient will perform bathing LB Independently Dates: Start: 07/13/24 Expected End: 08/13/24 Description: Goal Description: Disciplines: OT Problem: Bathing UB Dates: Start: 07/13/24 Disciplines: OT Goal: Patient will perform bathing UB Independently Dates: Start: 07/13/24 Expected End: 08/13/24 Description: Goal Description: Disciplines: OT Problem: Cognition Dates: Start: 07/13/24 Disciplines: OT Goal: Improve cognition Dates: Start: 07/13/24 Expected End: 08/13/24 Description: Patient will demonstrate good safety, judgement and ability to independently execute steps necessary for ADL tasks. Disciplines: OT Problem: Dressing LB Dates: Start: 07/13/24 Disciplines: OT Goal: Patient will perform dressing LB Independently Dates: Start: 07/13/24 Expected End: 08/13/24 Description: Goal Description: Disciplines: OT Problem: Dressing UB Dates: Start: 07/13/24 Disciplines: OT Goal: Patient will perform dressing UB Independently Dates: Start: 07/13/24 Expected End: 08/13/24 Description: Goal Description: Disciplines: OT Problem: Functional Mobility Dates: Start: 07/13/24 Disciplines: OT Goal: Patient will perform functional mobility Independently Dates: Start: 07/13/24 Expected End: 08/13/24 Description: Goal Description: Disciplines: OT Problem: Grooming Dates: Start: 07/13/24 Disciplines: OT Goal: Patient will perform grooming Independently Dates: Start: 07/13/24 Expected End: 08/13/24 Description: Goal Description: Disciplines: OT Problem: Standing Balance Dates: Start: 07/13/24 Disciplines: OT Goal: Improve balance to normal Dates: Start: 07/13/24 Expected End: 08/13/24 Description: Normal dynamic balance. Disciplines: OT Problem: Toilet Transfers Dates: Start: 07/13/24 Disciplines: OT Goal: Patient will perform toilet transfers Independently Dates: Start: 07/13/24 Expected End: 08/13/24 Description: Goal Description: Disciplines: OT Problem: Toileting Dates: Start: 07/13/24 Disciplines: OT Goal: Patient will perform toileting Independently Dates: Start: 07/13/24 Expected End: 08/13/24 Description: Goal Description: Disciplines: OT Problem: Transfers Dates: Start: 07/13/24 Disciplines: OT Goal: Patient will perform transfers Independently Dates: Start: 07/13/24 Expected End: 08/13/24 Description: Goal Description: Disciplines: OT Occupational Therapy Care Plan (Resolved) There are no resolved problems. Principal Problem: Dementia with behavioral disturbance ([facility]) Active Problems: Altered mental status Status post colostomy, follow-up exam ([facility]) Physical Therapy Evaluation Discharge Recommendations PT Recommendations: Inpatient Rehab Inpatient Rehab Criteria: All inpatient rehab criteria expected to be met 6 Clicks: Basic Mobility Turning from your back to your side while in a flat bed without using bed rails?: None Moving from lying on your back to sitting on side of flat bed without using bed rails?: None Moving to and from bed to a chair (including w/c)?: A little Standing up from a chair using your arms (e.g. w/c or bedside chair)?: A little To walk in hospital room?: A little Climbing 3-5 steps with a railing?: A little Scoring 6 Clicks: Basic Mobility Raw Score: [address] [facility] G Code Modifier: CJ Therapy Plan Need for skilled Physical Therapy to address deficits in functional mobility due to a status decline resulting from admission 07/06 as a transfer from [facility] for neurological work up. Patient diagnosed with early onset dementia 2022, per spouse report after fci and med changes cognitive status had improved and stabilized prior to fall in May 2024. 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 Pt discharged to inpatient treatment facility and returned to [facility] for scheduled MRI. 07/07/2024 CT brain (-) ICH, mass effect or large vessel territorial ischemia. Moderate brain volume loss, greater than expected for age 1/21 LP - results pending 07/11 psychiatry evaluation completed, med changes PT Treatment/Interventions: Functional transfer training, Endurance training, Patient/family training, Equipment eval/education, Balance, Stair training, Gait training, Functional activities PT Frequency: 3-4days/week PT Duration: length of stay Patient Response to Treatment: Tolerated evaluation without adverse reaction Past Medical History: Diagnosis Date GERD (gastroesophageal reflux disease) High cholesterol Perforated sigmoid colon ([facility]) Past Surgical History: Procedure Laterality Date ARM EXPLORATION WITH REPAIR LACERATED ULNAR ARTERY Left 11/24/2019 Performed by Skyler Bowen MD at [facility] 3YEARS AGO COLOSTOMY CLOSURE Assessment Patient Assessment Therapy Problem List: Decreased balance, Decreased cognition, Decreased endurance, Decreased high-level ADLs, Decreased mobility, Decreased safe judgement during ADL Patient Response to Treatment: Tolerated evaluation without adverse reaction Mood/Affect: Appropriate for circumstances Rehab Prognosis: Good Visit RN Communication: Yes Medical Record Reviewed: Yes PT Type of Visit: Evaluation Precautions Activity: early mobility / pass Equipment: gait belt Telemetry/Huc: Yes Other: fall risk, recent TBI with behavioral changes, intermittent use of restraints Pain Assessment Pain Assessment: No/denies pain Home Living Type of Home: House Home Layout: Two level, Bed/bath upstairs, Able to live on main level with bedroom/bathroom Stairs to Enter: 3 Hand Rails: Bilateral Stairs in Home: flight Hand Rails in Home: (x1) Bathroom Shower/Tub: Tub/shower unit (tub/shower on first floor, walk in shower on second floor) Bathroom Toilet: Raised Bathroom Equipment: Hand-held shower, Built-in shower seat (walk in shower with built in seat and hand-held, tub/shower with hand-held) Other : No AD / DME use at baseline Prior Function Lives With: Spouse (currently able to provide 24-hour care) Level of Mobility: Independent with ADLs and functional transfers or gait Homemaking Assistance: Independent Other: Prior to fallMay 2024 pt was independent with all IALDs, 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 Vocational: Retired ADL / IADL Hand Dominance: Right Hearing / Speech / Vision Hearing: Within Functional Limits Speech: Within Functional Limits Current Vision: Wears glasses only for reading Cognition Overall Cognitive Status: Exceptions to Within Functional Limits Memory: Decreased recall of biographical information, Decreased recall of recent events, Decreased immediate memory Orientation Level: Oriented to person, Disoriented to place, Disoriented to time, Disoriented to situation, Disoriented to month, Disoriented to age (unable to recall birthdate) Following Commands: Follows one step commands with increased time, Follows one step commands with repetition Safety Judgment: Decreased awareness of need for safety, Decreased awareness of need for assistance Awareness of Errors: Decreased awareness of errors Insight of Deficits: Decreased awareness of deficits Problem Solving: Reduced Interfering Components: Working memory Other: Patient pleasant and cooperative at this time Sensation Overall Sensation Status: (pt denies numbness / tingling) Bed Mobility Supine to Sit: Independent Sit to Supine: (remained up in chair with spouse in room, call light in reach with orientation to use of call light for support) Transfers Sit to Stand: Contact guard assist Stand to Sit: Contact guard assist Other: unsteady upon initial stand from EOB, cues and assist for safety / line management Gait Base of Support: Within Functional Limits Pattern: Decreased marty, R Decreased foot clearance, L Decreased foot clearance Gait Assistance: Contact guard assist Assistive Device: None Gait Distance: 250ft Other: Pt unsteady at times, able to self correct without LOB RLE Assessment: Within Functional Limits LLE Assessment: Within Functional Limits Activity Tolerance Endurance: Tolerates 30 minutes activity with rest breaks Plan Physical Therapy Care Plan Physical Therapy Care Plan (Active) Template: PT - Physical Therapy Problem: Activity Tolerance Dates: Start: 07/13/24 Disciplines: PT Goal: Tolerate > 30 minutes of activity WITH rest breaks Dates: Start: 07/13/24 Description: Goal Description: Disciplines: PT Problem: Gait Dates: Start: 07/13/24 Disciplines: PT Goal: Patient will perform gait Independently Dates: Start: 07/13/24 Description: With____,____feet Goal Description: Disciplines: PT Problem: Stairs/Curb Dates: Start: 07/13/24 Disciplines: PT Goal: Patient will perform stairs/curb with Modified [place] Dates: Start: 07/13/24 Description: steps, hand rails Goal Description: Disciplines: PT Problem: Standing Balance Dates: Start: 07/13/24 Disciplines: PT Goal: Improve balance to good Dates: Start: 07/13/24 Description: Static Dynamic Disciplines: PT Problem: Transfers Dates: Start: 07/13/24 Disciplines: PT Goal: Patient will perform transfers Independently Dates: Start: 07/13/24 Description: Goal Description: Disciplines: PT Physical Therapy Care Plan (Resolved) There are no resolved problems. Principal Problem: Dementia with behavioral disturbance ([facility]) Active Problems: Altered mental status Status post colostomy, follow-up exam ([facility]) Problem: Safety Goal: Patient will be injury free during hospitalization Description: INTERVENTIONS: 1. Assess patient's risk for falls and implement fall prevention plan of care per policy 2. Provide and maintain a safe environment 3. Proper use of double Identifiers 4. Medication administration using the 5 rights 5. Hand hygiene 6. Specimens are labeled at the bedside 7. Instruct patient/ patient passenger relations representative about use of safety devices 8. Include patient/ patient passenger relations representative in decisions related to safety Outcome: Progressing Note: Evaluation of progress towards goal: Patient remains injury and fall free. Safety precautions in place: call light within reach, bed in lowest position, personal belongings within reach, oriented to environment, and non-slip footwear on. Problem: Knowledge Deficit Goal: Patient/patient passenger relations representative demonstrates understanding of disease process, treatment plan, medications, and discharge instructions Description: INTERVENTIONS 1. Complete learning assessment and assess knowledge base 2. Provide teaching at level of understanding 3. Provide teaching via preferred learning method(s) Outcome: Progressing Note: Evaluation of progress towards goal: Patient needs information to be reinforced. Problem: Discharge Planning Goal: Discharge to post-acute care, other facility, or home with appropriate resources Description: Patient's goal is: INTERVENTIONS 1. Conduct assessment to determine patient/family and health care team treatment goals, and need for post-acute services based on payer coverage, community resources, and patient preferences, and barriers to discharge 2. Coordinate with Social work, Care Navigation, and Utilization Review to arrange appropriate level of services according to patient's needs based on patient preference and payer coverage in collaboration with the physician and health care team 3. Address psychosocial, clinical, and financial barriers to discharge as identified in assessment in conjunction with the patient/family and health care team 4. Consult appropriate ancillary services (i.e.. PT/OT/ST, etc) as needed 5. Communicate with and update the patient/family, physician, and health care team regarding progress on the discharge plan 6. Identify discharge learning needs (meds, wound care, etc). 7. Arrange for needed discharge transportation as appropriate Outcome: Progressing Note: Evaluation of progress towards goal: Discharge planning is to be determined. Care blessing is working on plan. Problem: Neurological Deficit Goal: Neurological status is stable or improving Description: Patient's goal is: INTERVENTIONS 1. Complete Neurological assessment as indicated/ordered 2. Initiate measures to prevent increased intracranial pressure 3. Monitor and assess patient's level of consciousness, motor function, sensory function, and level of assistance needed for ADLs 4. Monitor and report changes from baseline 5. Maintain blood pressure and fluid volume within ordered parameters to optimize cerebral perfusion and minimize risk of hemorrhage 6. Monitor labs and diagnostic tests 7. Administer anti-seizure medications as ordered 8. Maintain airway, patient safety and administer oxygen as ordered 9. Monitor patient for seizure activity, document and report duration and description of seizure to LIP 10. If seizure occurs, turn patient to side and suction secretions as needed 11. Reorient patient post seizure 12. Seizure pads on all 4 side rails 13. Instruct patient/family to notify RN of any seizure activity 14. Instruct patient/family to call for assistance with activity based on assessment 15. Utilize bleeding precautions if thrombolytic given Outcome: Progressing Note: Evaluation of progress towards goal: Assess and report any changes in neurological status. Neurological status and vital signs q4h and with any changes in condition. Problem: Anxiety Goal: Anxiety is at manageable level Description: Patient's goal is: INTERVENTIONS 1. Assess and monitor patient's anxiety level 2. Monitor for signs and symptoms of anxiety both physical and emotional (heart palpitations, chest pain, shortness of breath, headaches, nausea, feeling jumpy, restlessness, irritable, apprehensive) 3. Reorient/orient patient to unit/surroundings 4. Explain treatment plan 5. Explain tests/procedures prior to initiation 6. Encourage participation in care 7. Encourage verbalization of concerns/fears 8. Assess coping mechanisms 9. Assist in developing anxiety-reducing skills 10. Administer complimentary therapies 11. Manage patient's environment 12. Limit or eliminate stimulants such as caffeine and nicotine 13. Collaborate with ancillary departments 14. Include patient/patient passenger relations representative in decisions related to anxiety Outcome: Progressing Note: Evaluation of progress towards goal: Patient's has at bedside to help with spells of anxiety. Problem: Moderate - High Risk Fall Score Description: Gallegos Fall Score of =/> [address] [facility] Re[facility] Assessment Goal: Patient should be free from fall Description: Interventions: 1. [place] to environment 2. Hourly rounds addressing the 4 P's (Pain, Positioning, Possessions, Potty) 3. Clear area of hazards (spills, clutter, electrical cords, unnecessary equipment) 4. Place equipment (bed & TV controls, call light, phone, urinal) within reach 5. Encourage patient to wear glasses and hearing aides as appropriate 6. Maintain bed in lowest position 7. Lock wheels on bed/wheelchair 8. Provide adequate lighting, including night light 9. Assess need for additional bedding, food/fluids, pain med's prior to sleep/routinely 10. Provide gripper slippers or personal non-skid footwear 11. Teach patient and patient passenger relations representative to maintain environment for safety and engage in all aspects of fall prevention program 12. Remind patient to call for help before getting out of bed 13. Initiate bed/chair/exit alarms supportive devices as appropriate, (chair wedge, no-skid floor mat, raised edge mattress, hip protectors) 14. Locate patient bed assignment for optimal visualization 15. Evaluate and identify Safe Patient Handling Equipment needs 16. Provide supervision when out of bed or chair 17. Utilize gait belt as needed to assist with ambulation 18. Place adaptive equipment (cane, walker) within reach 19. Request patient passenger relations representative bring adaptive equipment/mobility aids from home or obtain and provide as needed 20. Consult pharmacy regarding effects of med's affecting mobility, cognition, and alternatives 21. Obtain physician order for PT if risk factors associated with mobility are present 22. Obtain physician order for OT as appropriate 23. Utilize diversional activities 24. Educate patient and patient passenger relations representative how to maintain a safe environment during visitation times (notify nurse prior to leaving bedside) 25. Consider appropriateness of medical or non-medical reception specialist 26. Set up voiding schedule as appropriate (every 2 hours) Outcome: Progressing Note: Evaluation of progress towards goal: Patient remains injury and fall free. Safety precautions in place: call light within reach, bed in lowest position, personal belongings within reach, oriented to environment, and non-slip footwear on. Problem: Safety - Medical Restraint Goal: Remains free of injury from restraints (Restraint for Interference with Hydro[employer] Power Plant Manager) Description: INTERVENTIONS: 1. Determine that other, less restrictive measures have been tried or would not be effective before applying the restraint 2. Evaluate the patient's condition at the time of restraint application 3. Inform patient/family regarding the reason for restraint 4. Q2H: Monitor safety, Vital signs, psychosocial status, signs of injury, skin integrity, circulation, neurovascular status in affected extremities, respiratory status, comfort, nutrition and hydration, hygiene, ROM, elimination needs 5. Doctor will be notified of restraint 6. RN properly applies restraints per physician order Outcome: Progressing Note: Evaluation of progress towards goal: Q2H: Monitor safety, Vital signs, psychosocial status, signs of injury, skin integrity, circulation, neurovascular status in affected extremities, respiratory status, comfort, nutrition and hydration, hygiene, ROM, elimination needs Goal: Free from restraint(s) (Restraint for Interference with Hydrogen Power Plant Manager) Description: INTERVENTIONS: 1. ONCE/SHIFT or MINIMUM Q12H: Assess and document the continuing need for restraints 2. Order is valid for the duration of the episode of care 3. Discontinue at the earliest possible time once the reason for restraints no longer exists 4. Identify and implement measures to help patient regain control 5. Food, fluids, and toilet offered at a minimum of every 2 hours 6. RN modifies the patient's plan of care by entering a problem statement related to safety; individualizes the safety outcome Outcome: Progressing Note: Evaluation of progress towards goal: Q2H: Monitor safety, Vital signs, psychosocial status, signs of injury, skin integrity, circulation, neurovascular status in affected extremities, respiratory status, comfort, nutrition and hydration, hygiene, ROM, elimination needs DISCHARGE PLANNING NOTE Per RN during discharge transition rounds, barriers to discharge are: PMR consult today, 2 point restraints, telesitter Discharge Plan: TBD. PMR is requesting PT/OT notes. Will wait for therapy input. not available this afternoon. CN escalated this case to CN leadership. Manager New Product will continue to follow for any discharge needs. - Lesia Caba RN 07/12/24 3:24 PM Problem: Safety Goal: Patient will be injury free during hospitalization Description: INTERVENTIONS: 1. Assess patient's risk for falls and implement fall prevention plan of care per policy 2. Provide and maintain a safe environment 3. Proper use of double Identifiers 4. Medication administration using the 5 rights 5. Hand hygiene 6. Specimens are labeled at the bedside 7. Instruct patient/ patient passenger relations representative about use of safety devices 8. Include patient/ patient passenger relations representative in decisions related to safety Outcome: Progressing Note: Evaluation of progress towards goal: Patient remains injury free at present time. Safe environment provided and maintained. Medications administered using 5 rights. Problem: Knowledge Deficit Goal: Patient/patient passenger relations representative demonstrates understanding of disease process, treatment plan, medications, and discharge instructions Description: INTERVENTIONS 1. Complete learning assessment and assess knowledge base 2. Provide teaching at level of understanding 3. Provide teaching via preferred learning method(s) Outcome: Progressing Note: Evaluation of progress towards goal: Daily plan of care reviewed with patient. Patient demonstrates an understanding of plan. Will continue to monitor for any questions/concerns patient may have. Problem: Discharge Planning Goal: Discharge to post-acute care, other facility, or home with appropriate resources Description: Patient's goal is: INTERVENTIONS 1. Conduct assessment to determine patient/family and health care team treatment goals, and need for post-acute services based on payer coverage, community resources, and patient preferences, and barriers to discharge 2. Coordinate with Social work, Care Navigation, and Utilization Review to arrange appropriate level of services according to patient's needs based on patient preference and payer coverage in collaboration with the physician and health care team 3. Address psychosocial, clinical, and financial barriers to discharge as identified in assessment in conjunction with the patient/family and health care team 4. Consult appropriate ancillary services (i.e.. PT/OT/ST, etc) as needed 5. Communicate with and update the patient/family, physician, and health care team regarding progress on the discharge plan 6. Identify discharge learning needs (meds, wound care, etc). 7. Arrange for needed discharge transportation as appropriate Outcome: Progressing Note: Evaluation of progress towards goal: Plan is currently IPR TBI clinic. Care blessing, pt/ot, Pmr following. Problem: Neurological Deficit Goal: Neurological status is stable or improving Description: Patient's goal is: INTERVENTIONS 1. Complete Neurological assessment as indicated/ordered 2. Initiate measures to prevent increased intracranial pressure 3. Monitor and assess patient's level of consciousness, motor function, sensory function, and level of assistance needed for ADLs 4. Monitor and report changes from baseline 5. Maintain blood pressure and fluid volume within ordered parameters to optimize cerebral perfusion and minimize risk of hemorrhage 6. Monitor labs and diagnostic tests 7. Administer anti-seizure medications as ordered 8. Maintain airway, patient safety and administer oxygen as ordered 9. Monitor patient for seizure activity, document and report duration and description of seizure to LIP 10. If seizure occurs, turn patient to side and suction secretions as needed 11. Reorient patient post seizure 12. Seizure pads on all 4 side rails 13. Instruct patient/family to notify RN of any seizure activity 14. Instruct patient/family to call for assistance with activity based on assessment 15. Utilize bleeding precautions if thrombolytic given Outcome: Progressing Note: Evaluation of progress towards goal: Patient oriented to self, with intermittent agitation, q4 neuro checks. Problem: Anxiety Goal: Anxiety is at manageable level Description: Patient's goal is: INTERVENTIONS 1. Assess and monitor patient's anxiety level 2. Monitor for signs and symptoms of anxiety both physical and emotional (heart palpitations, chest pain, shortness of breath, headaches, nausea, feeling jumpy, restlessness, irritable, apprehensive) 3. Reorient/orient patient to unit/surroundings 4. Explain treatment plan 5. Explain tests/procedures prior to initiation 6. Encourage participation in care 7. Encourage verbalization of concerns/fears 8. Assess coping mechanisms 9. Assist in developing anxiety-reducing skills 10. Administer complimentary therapies 11. Manage patient's environment 12. Limit or eliminate stimulants such as caffeine and nicotine 13. Collaborate with ancillary departments 14. Include patient/patient passenger relations representative in decisions related to anxiety Outcome: Progressing Note: Evaluation of progress towards goal: Patient has family at bedside assisting with anxiety. Problem: Safety - Medical Restraint Goal: Remains free of injury from restraints (Restraint for Interference with Hydro[employer] Power Plant Manager) Description: INTERVENTIONS: 1. Determine that other, less restrictive measures have been tried or would not be effective before applying the restraint 2. Evaluate the patient's condition at the time of restraint application 3. Inform patient/family regarding the reason for restraint 4. Q2H: Monitor safety, Vital signs, psychosocial status, signs of injury, skin integrity, circulation, neurovascular status in affected extremities, respiratory status, comfort, nutrition and hydration, hygiene, ROM, elimination needs 5. Doctor will be notified of restraint 6. RN properly applies restraints per physician order Outcome: Progressing Note: Evaluation of progress towards goal: Patient in non violent bilateral wrist restraints, q2 checks, currently free from injury. Goal: Free from restraint(s) (Restraint for Interference with Hydrogen Power Plant Manager) Description: INTERVENTIONS: 1. ONCE/SHIFT or MINIMUM Q12H: Assess and document the continuing need for restraints 2. Order is valid for the duration of the episode of care 3. Discontinue at the earliest possible time once the reason for restraints no longer exists 4. Identify and implement measures to help patient regain control 5. Food, fluids, and toilet offered at a minimum of every 2 hours 6. RN modifies the patient's plan of care by entering a problem statement related to safety; individualizes the safety outcome Outcome: Progressing Note: Evaluation of progress towards goal: RN assess q2 restraints, qshift assessed for necessity. Speech Therapy Speech & Language Cognitive Evaluation and Treatment Note Impressions Receptive Language: Moderate-severe Expressive Language: Moderate-severe Cognitive Linguistic: Moderate-severe Recommendations Discharge Recommendations: (continued speech services) Rehab Therapy Type: Individual treatment Plan Frequency: 3-4days/week Duration: until discharge Treatments/Modalities: Strategies/techniques training Need for skilled Speech Language Pathology Services to address deficits in speech/language/cognition due to a status decline resulting from altered mental status. Pt, pt's family, and RN educated on results and recommendations of evaluation. Pt responds well to verbal redirections, semantic cues, repetition, and increased processing time. Will continue to follow along. Prognosis Services: Skilled FRUIT THINNER services to address the above deficits Prognosis/Potential: Good Considerations: Age, Ability to learn, Previous level of function Assessment Oral/Motor Overall Oral/Motor Status: Within Functional Limits Breath Support: Adequate for speech Dentition: Adequate Xerostomia: No Hearing: Within Functional Limits Auditory Comprehension Overall Auditory Comphension Status: Exceptions to Within Functional Limits Yes/No Questions: Exceptions to WFL Basic Questions: Moderate Complex Questions: Moderate Commands: Exceptions to WFL Two Step Basic Commands: Mild Multistep Basic Commands: Moderate Conversation: Simple Paragraph: Moderate Sentence: Moderate Perception Overall Perception Status: Exceptions to Within Functional Limits Initiation: Cues to initiate tasks Visual Recognition Overall Visual Recognition Status: Within Functional Limits Reading Comprehension Overall Reading Status: Not Assessed Expression Overall Expression Status: Exceptions to Within Functional Limits Primary Mode of Expression: Verbal Verbal Expression Overall Verbal Expression Status: Exceptions to Within Functional Limits Initiation: Impairment Naming: Impairment Confrontation: Mild Convergent: Moderate Divergent: Moderate Responsive: Mild Speech Production Overall Speech Production: Within Functional Limits Voice Evaluation Overall Voice Impairment Severity: None Pragmatics/Social Functioning Overall Pragmatic Status: Exceptions to Within Functional Limits Abnormal Affect: Mild Inconsistent Eye Contact: Mild Topic Initiation: Moderate Topic Maintenance: Moderate Turn Taking: Moderate Fluency Comments: no dysfluencies noted High Level Language Overall High Level Language Status: Exceptions to Within Functional Limits Attention: Exceptions to WFL Alternating Attention: Moderate Divided Attention: Moderate Selective Attention: Moderate Sustained Attention: Moderate Memory: Exceptions to WFL Daily Routines: Moderate Immediate Memory: Severe Short-term Memory: Severe Working Memory: Moderate Problem Solving: Exceptions to WFL Complex Functional Tasks: Severe Managing Finances: Moderate Managing Medications: Moderate Performing Discharge Planning: Moderate Simple Functional Tasks: Moderate Numeric Reasoning: Unable to assess Abstract Reasoning: Moderate Inductive Reasoning: Moderate Deductive Reasoning: Moderate Safety/Judgement: Exceptions to WFL Novel Situations: Severe Routine Tasks: Moderate Unable to Self-monitor and Self-correct Consistently: Moderate Insight: Moderate insight Impulsive: Moderately impulsive Task Initiation: Initiates with cues Flexibility of Thought: Reduced flexibility Planning: Reduced planning skills Organization: Severely disorganized Sequencing: Moderate Processing Speed: Mild Cognition Overall Cognitive Status: Exceptions to Within Functional Limits Arousal/Alertness: Delayed responses to stimuli Attention Span: Difficulty attending to directions Memory: Decreased immediate memory, Decreased short term memory, Decreased recall of biographical information, Decreased recall of recent events Orientation Level: Oriented to person, Oriented to place, Disoriented to time Following Commands: Follows one step commands consistently Safety Judgment: Decreased awareness of need for safety, Decreased awareness of need for assistance Awareness of Errors: Decreased awareness of errors Insight of Deficits: Decreased awareness of deficits Problem Solving: Assistance required to implement solutions, Assistance required to generate solutions Pain Assessment Pain Assessment: No/denies pain Plan Diagnosis Code Language: R48.8 Other symbolic dysfunction/acalculia/agraphia Speech Therapy Care Plan Speech Therapy Care Plan (Active) Template: [facility] Speech Problem: Auditory Comprehension Dates: Start: 07/12/24 Disciplines: FRUIT THINNER Goal: LTG: Patient will comprehend communication related to basic medical and social needs and utilize compensatory strategies to maintain safety in a functional living environment Dates: Start: 07/12/24 Expected End: 08/12/24 Disciplines: FRUIT THINNER Goal: STG: Patient will answer complex yes/no questions with 90% accuracy with minimal cueing Dates: Start: 07/12/24 Expected End: 08/12/24 Disciplines: FRUIT THINNER Goal: STG: Patient will complete 1-3 step commands with 90% accuracy with minimal cueing Dates: Start: 07/12/24 Expected End: 08/12/24 Disciplines: FRUIT THINNER Goal: STG: Patient will complete simple, phrase level auditory comprehension tasks with 90% accuracy with minimal cueing Dates: Start: 07/12/24 Expected End: 08/12/24 Disciplines: FRUIT THINNER Problem: Cognitive Linguistic Dates: Start: 07/12/24 Disciplines: FRUIT THINNER Goal: LTG: Patient will display functional cognitive-linguistic skills to demonstrate appropriate communication and safety within daily activities in a functional living environment Dates: Start: 07/12/24 Expected End: 08/12/24 Disciplines: FRUIT THINNER Goal: STG: Patient will demonstrate sustained attention by maintaining focus during a task for 10 minutes with minimal assistance Dates: Start: 07/12/24 Expected End: 08/12/24 Disciplines: FRUIT THINNER Goal: STG: Patient will be appropriately oriented to person, place, time and situation with 90% accuracy with minimal cueing Dates: Start: 07/12/24 Expected End: 08/12/24 Disciplines: FRUIT THINNER Goal: STG: Patient will recall information discussed during therapy session via retelling/answering questions with 90% accuracy with minimal cueing Dates: Start: 07/12/24 Expected End: 08/12/24 Disciplines: FRUIT THINNER Problem: High Level Language Dates: Start: 07/12/24 Disciplines: FRUIT THINNER Goal: LTG: Patient will demonstrate use of self-awareness, goal setting, planning, initiation, self-monitoring and problem solving during daily activities to improve safety and awareness in a functional living environment Dates: Start: 07/12/24 Expected End: 08/12/24 Disciplines: FRUIT THINNER Goal: STG: Patient will sequence 4-6 steps to a task (verbal, written, pictures) with 90% accuracy with minimal cueing Dates: Start: 07/12/24 Expected End: 08/12/24 Disciplines: FRUIT THINNER Goal: STG: Patient will provide 3 appropriate solutions to problems of daily living with 90% accuracy with minimal cueing Dates: Start: 07/12/24 Expected End: 08/12/24 Disciplines: FRUIT THINNER Goal: STG: Patient will demonstrate functional problem solving and safety awareness with 90% accuracy in daily living tasks in order to increase safe interactions with environment and decrease assistance from caregivers Dates: Start: 07/12/24 Expected End: 08/12/24 Disciplines: FRUIT THINNER Problem: Verbal Expression Dates: Start: 07/12/24 Disciplines: FRUIT THINNER Goal: LTG: Patient will utilize compensatory strategies to communicate wants and needs effectively to different conversational partners, maintain safety and participate socially in a functional living environment Dates: Start: 07/12/24 Expected End: 08/12/24 Disciplines: FRUIT THINNER Goal: STG: Patient will respond to simple/complex open ended questions during activities of daily living with 90% accuracy with minimal cueing Dates: Start: 07/12/24 Expected End: 08/12/24 Disciplines: FRUIT THINNER Goal: STG: Patient will maintain topic of conversation to decrease tangential speech with 90% accuracy with minimal cueing Dates: Start: 07/12/24 Expected End: 08/12/24 Disciplines: FRUIT THINNER Speech Therapy Care Plan (Resolved) There are no resolved problems. Principal Problem: Dementia with behavioral disturbance ([facility]) Active Problems: Altered mental status Status post colostomy, follow-up exam ([facility]) Problem: Safety - Medical Restraint Goal: Remains free of injury from restraints (Restraint for Interference with [employer] Power [employer] Manager) Description: INTERVENTIONS: 1. Determine that other, less restrictive measures have been tried or would not be effective before applying the restraint 2. Evaluate the patient's condition at the time of restraint application 3. Inform patient/family regarding the reason for restraint 4. Q2H: Monitor safety, Vital signs, psychosocial status, signs of injury, skin integrity, circulation, neurovascular status in affected extremities, respiratory status, comfort, nutrition and hydration, hygiene, ROM, elimination needs 5. Doctor will be notified of restraint 6. RN properly applies restraints per physician order Outcome: Progressing Note: Evaluation of progress towards goal: Q2H: Monitor safety, Vital signs, psychosocial status, signs of injury, skin integrity, circulation, neurovascular status in affected extremities, respiratory status, comfort, nutrition and hydration, hygiene, ROM, elimination needs Problem: Safety - Medical Restraint Goal: Free from restraint(s) (Restraint for Interference with Hydro[employer] Power Plant Manager) Description: INTERVENTIONS: 1. ONCE/SHIFT or MINIMUM Q12H: Assess and document the continuing need for restraints 2. Order is valid for the duration of the episode of care 3. Discontinue at the earliest possible time once the reason for restraints no longer exists 4. Identify and implement measures to help patient regain control 5. Food, fluids, and toilet offered at a minimum of every 2 hours 6. RN modifies the patient's plan of care by entering a problem statement related to safety; individualizes the safety outcome Outcome: Progressing Note: Evaluation of progress towards goal: Q2H: Monitor safety, Vital signs, psychosocial status, signs of injury, skin integrity, circulation, neurovascular status in affected extremities, respiratory status, comfort, nutrition and hydration, hygiene, ROM, elimination needs BEHAVIORAL RESTRAINTS PROVIDER ONE HOUR [id number] EVALUATION NOTE Noé Jeffery was evaluated on 07/12/24-12:27 AM The patient's immediate situation: Patient became physically aggressive with others, Patient pulling medical devices. The patient's reaction to the intervention(s): Patient failed to respond to verbal redirection, Patient became physically aggressive, Patient became verbally threatening and Patient did not redirect with verbal cues. The patient's medical and behavioral condition was evaluated. The evaluation included a review of: patient history, review of systems and medications. At this time the: patient is psychmotor agitated, threatened staff and has poor impulse control and impaired judgement. Need to continue restraint/seclusion order: Yes Patient needs restraints due to imminent risk of harm to self and others. Jackson Peterson PA-C 07/12/24 0058 Problem: Safety Goal: Patient will be injury free during hospitalization Description: INTERVENTIONS: 1. Assess patient's risk for falls and implement fall prevention plan of care per policy 2. Provide and maintain a safe environment 3. Proper use of double Identifiers 4. Medication administration using the 5 rights 5. Hand hygiene 6. Specimens are labeled at the bedside 7. Instruct patient/ patient passenger relations representative about use of safety devices 8. Include patient/ patient passenger relations representative in decisions related to safety Outcome: Progressing Note: Evaluation of progress towards goal: Patient remains injury and fall free. Safety precautions in place: call light within reach, bed in lowest position, personal belongings within reach, oriented to environment, and non-slip footwear on. Problem: Knowledge Deficit Goal: Patient/patient passenger relations representative demonstrates understanding of disease process, treatment plan, medications, and discharge instructions Description: INTERVENTIONS 1. Complete learning assessment and assess knowledge base 2. Provide teaching at level of understanding 3. Provide teaching via preferred learning method(s) Outcome: Progressing Note: Evaluation of progress towards goal: Patient verbalizes understanding of disease process, treatment plan, medications, and discharge plan. Continue to update with any changes. Problem: Discharge Planning Goal: Discharge to post-acute care, other facility, or home with appropriate resources Description: Patient's goal is: INTERVENTIONS 1. Conduct assessment to determine patient/family and health care team treatment goals, and need for post-acute services based on payer coverage, community resources, and patient preferences, and barriers to discharge 2. Coordinate with Social work, Care Navigation, and Utilization Review to arrange appropriate level of services according to patient's needs based on patient preference and payer coverage in collaboration with the physician and health care team 3. Address psychosocial, clinical, and financial barriers to discharge as identified in assessment in conjunction with the patient/family and health care team 4. Consult appropriate ancillary services (i.e.. PT/OT/ST, etc) as needed 5. Communicate with and update the patient/family, physician, and health care team regarding progress on the discharge plan 6. Identify discharge learning needs (meds, wound care, etc). 7. Arrange for needed discharge transportation as appropriate Outcome: Progressing Note: Evaluation of progress towards goal: Updated spouse and patient on discharge planning, awaiting acceptance. Problem: Neurological Deficit Goal: Neurological status is stable or improving Description: Patient's goal is: INTERVENTIONS 1. Complete Neurological assessment as indicated/ordered 2. Initiate measures to prevent increased intracranial pressure 3. Monitor and assess patient's level of consciousness, motor function, sensory function, and level of assistance needed for ADLs 4. Monitor and report changes from baseline 5. Maintain blood pressure and fluid volume within ordered parameters to optimize cerebral perfusion and minimize risk of hemorrhage 6. Monitor labs and diagnostic tests 7. Administer anti-seizure medications as ordered 8. Maintain airway, patient safety and administer oxygen as ordered 9. Monitor patient for seizure activity, document and report duration and description of seizure to LIP 10. If seizure occurs, turn patient to side and suction secretions as needed 11. Reorient patient post seizure 12. Seizure pads on all 4 side rails 13. Instruct patient/family to notify RN of any seizure activity 14. Instruct patient/family to call for assistance with activity based on assessment 15. Utilize bleeding precautions if thrombolytic given Outcome: Progressing Note: Evaluation of progress towards goal: Assess and report any changes in neurological status. Neurological status and vital signs q4h and with any changes in condition. Problem: Anxiety Goal: Anxiety is at manageable level Description: Patient's goal is: INTERVENTIONS 1. Assess and monitor patient's anxiety level 2. Monitor for signs and symptoms of anxiety both physical and emotional (heart palpitations, chest pain, shortness of breath, headaches, nausea, feeling jumpy, restlessness, irritable, apprehensive) 3. Reorient/orient patient to unit/surroundings 4. Explain treatment plan 5. Explain tests/procedures prior to initiation 6. Encourage participation in care 7. Encourage verbalization of concerns/fears 8. Assess coping mechanisms 9. Assist in developing anxiety-reducing skills 10. Administer complimentary therapies 11. Manage patient's environment 12. Limit or eliminate stimulants such as caffeine and nicotine 13. Collaborate with ancillary departments 14. Include patient/patient passenger relations representative in decisions related to anxiety Outcome: Progressing Note: Evaluation of progress towards goal: Patient has at bedside aiding in assisting with anxiety. Problem: Moderate - High Risk Fall Score Description: Gallegos Fall Score of =/> [address] [facility] Assessment Goal: Patient should be free from fall Description: Interventions: 1. [place] to environment 2. Hourly rounds addressing the 4 P's (Pain, Positioning, Possessions, Potty) 3. Clear area of hazards (spills, clutter, electrical cords, unnecessary equipment) 4. Place equipment (bed & TV controls, call light, phone, urinal) within reach 5. Encourage patient to wear glasses and hearing aides as appropriate 6. Maintain bed in lowest position 7. Lock wheels on bed/wheelchair 8. Provide adequate lighting, including night light 9. Assess need for additional bedding, food/fluids, pain med's prior to sleep/routinely 10. Provide gripper slippers or personal non-skid footwear 11. Teach patient and patient passenger relations representative to maintain environment for safety and engage in all aspects of fall prevention program 12. Remind patient to call for help before getting out of bed 13. Initiate bed/chair/exit alarms supportive devices as appropriate, (chair wedge, no-skid floor mat, raised edge mattress, hip protectors) 14. Locate patient bed assignment for optimal visualization 15. Evaluate and identify Safe Patient Handling Equipment needs 16. Provide supervision when out of bed or chair 17. Utilize gait belt as needed to assist with ambulation 18. Place adaptive equipment (cane, walker) within reach 19. Request patient passenger relations representative bring adaptive equipment/mobility aids from home or obtain and provide as needed 20. Consult pharmacy regarding effects of med's affecting mobility, cognition, and alternatives 21. Obtain physician order for PT if risk factors associated with mobility are present 22. Obtain physician order for OT as appropriate 23. Utilize diversional activities 24. Educate patient and patient passenger relations representative how to maintain a safe environment during visitation times (notify nurse prior to leaving bedside) 25. Consider appropriateness of medical or non-medical reception specialist 26. Set up voiding schedule as appropriate (every 2 hours) Outcome: Progressing Note: Evaluation of progress towards goal: Patient remains injury and fall free. Safety precautions in place: call light within reach, bed in lowest position, personal belongings within reach, oriented to environment, and non-slip footwear on. DISCHARGE PLANNING NOTE Per RN during discharge transition rounds, barriers to discharge are: re-consulting psych today, telesitter and soft restraints, MRI and LP completed yesterday, patient behaviors are worse at night, unpredictable and confused. Discharge Plan: [facility] psych stated [facility] was sent a referral and they have declined. Waiting input from psych. Manager New Product will continue to follow for any discharge needs. - Lesia Caba RN 07/11/24 12:06 PM Late entery: CN met with patient, Kari, and sister Ewa on Tuesday afternoon. and sister want the patient to go to a Traumatic Brain Injury rehab unit. CN began researching TBI Rehab units in the area, reported back to the and sister after finding TBI rehab units in [facility]. Sister asked for me to look in [facility]. and sister do not want any referrals send until they are able to meet with the neurologist again, sister wants to look into the TBI units in the [facility] herself before any referrals are sent. - Lesia Caba RN 07/12/24 8:11 AM Referral sent to [facility] to assess [facility]. After a clinical review and screening was completed [facility] assessed patient as inappropriate for treatment at that facility. Will alert care team. - NANCY Martines 07/11/24 10:33 AM DISCHARGE PLANNING NOTE Updates to Assurance [phone] Problem: Safety Goal: Patient will be injury free during hospitalization Description: INTERVENTIONS: 1. Assess patient's risk for falls and implement fall prevention plan of care per policy 2. Provide and maintain a safe environment 3. Proper use of double Identifiers 4. Medication administration using the 5 rights 5. Hand hygiene 6. Specimens are labeled at the bedside 7. Instruct patient/ patient passenger relations representative about use of safety devices 8. Include patient/ patient passenger relations representative in decisions related to safety Outcome: Progressing Note: Evaluation of progress towards goal: Patient remains injury free at present time. Safe environment provided and maintained. Medications administered using 5 rights. Problem: Knowledge Deficit Goal: Patient/patient passenger relations representative demonstrates understanding of disease process, treatment plan, medications, and discharge instructions Description: INTERVENTIONS 1. Complete learning assessment and assess knowledge base 2. Provide teaching at level of understanding 3. Provide teaching via preferred learning method(s) Outcome: Progressing Note: Evaluation of progress towards goal: Daily plan of care reviewed with patient. Patient demonstrates an understanding of plan, needs reinforcement. Will continue to monitor for any questions/concerns patient may have. Problem: Discharge Planning Goal: Discharge to post-acute care, other facility, or home with appropriate resources Description: Patient's goal is: INTERVENTIONS 1. Conduct assessment to determine patient/family and health care team treatment goals, and need for post-acute services based on payer coverage, community resources, and patient preferences, and barriers to discharge 2. Coordinate with Social work, Care Navigation, and Utilization Review to arrange appropriate level of services according to patient's needs based on patient preference and payer coverage in collaboration with the physician and health care team 3. Address psychosocial, clinical, and financial barriers to discharge as identified in assessment in conjunction with the patient/family and health care team 4. Consult appropriate ancillary services (i.e.. PT/OT/ST, etc) as needed 5. Communicate with and update the patient/family, physician, and health care team regarding progress on the discharge plan 6. Identify discharge learning needs (meds, wound care, etc). 7. Arrange for needed discharge transportation as appropriate Outcome: Progressing Note: Evaluation of progress towards goal: Patient is being followed by care blessing, and psych Problem: Neurological Deficit Goal: Neurological status is stable or improving Description: Patient's goal is: INTERVENTIONS 1. Complete Neurological assessment as indicated/ordered 2. Initiate measures to prevent increased intracranial pressure 3. Monitor and assess patient's level of consciousness, motor function, sensory function, and level of assistance needed for ADLs 4. Monitor and report changes from baseline 5. Maintain blood pressure and fluid volume within ordered parameters to optimize cerebral perfusion and minimize risk of hemorrhage 6. Monitor labs and diagnostic tests 7. Administer anti-seizure medications as ordered 8. Maintain airway, patient safety and administer oxygen as ordered 9. Monitor patient for seizure activity, document and report duration and description of seizure to LIP 10. If seizure occurs, turn patient to side and suction secretions as needed 11. Reorient patient post seizure 12. Seizure pads on all 4 side rails 13. Instruct patient/family to notify RN of any seizure activity 14. Instruct patient/family to call for assistance with activity based on assessment 15. Utilize bleeding precautions if thrombolytic given Outcome: Progressing Note: Evaluation of progress towards goal: Patient oriented to self, labile, irritable, impulsive, q4 neuro checks Problem: Anxiety Goal: Anxiety is at manageable level Description: Patient's goal is: INTERVENTIONS 1. Assess and monitor patient's anxiety level 2. Monitor for signs and symptoms of anxiety both physical and emotional (heart palpitations, chest pain, shortness of breath, headaches, nausea, feeling jumpy, restlessness, irritable, apprehensive) 3. Reorient/orient patient to unit/surroundings 4. Explain treatment plan 5. Explain tests/procedures prior to initiation 6. Encourage participation in care 7. Encourage verbalization of concerns/fears 8. Assess coping mechanisms 9. Assist in developing anxiety-reducing skills 10. Administer complimentary therapies 11. Manage patient's environment 12. Limit or eliminate stimulants such as caffeine and nicotine 13. Collaborate with ancillary departments 14. Include patient/patient passenger relations representative in decisions related to anxiety Outcome: Progressing Note: Evaluation of progress towards goal: Patient has at bedside assisting with anxiety. Problem: Moderate - High Risk Fall Score Description: Gallegos Fall Score of =/> [address] [facility] Assessment Goal: Patient should be free from fall Description: Interventions: 1. [place] to environment 2. Hourly rounds addressing the 4 P's (Pain, Positioning, Possessions, Potty) 3. Clear area of hazards (spills, clutter, electrical cords, unnecessary equipment) 4. Place equipment (bed & TV controls, call light, phone, urinal) within reach 5. Encourage patient to wear glasses and hearing aides as appropriate 6. Maintain bed in lowest position 7. Lock wheels on bed/wheelchair 8. Provide adequate lighting, including night light 9. Assess need for additional bedding, food/fluids, pain med's prior to sleep/routinely 10. Provide gripper slippers or personal non-skid footwear 11. Teach patient and patient passenger relations representative to maintain environment for safety and engage in all aspects of fall prevention program 12. Remind patient to call for help before getting out of bed 13. Initiate bed/chair/exit alarms supportive devices as appropriate, (chair wedge, no-skid floor mat, raised edge mattress, hip protectors) 14. Locate patient bed assignment for optimal visualization 15. Evaluate and identify Safe Patient Handling Equipment needs 16. Provide supervision when out of bed or chair 17. Utilize gait belt as needed to assist with ambulation 18. Place adaptive equipment (cane, walker) within reach 19. Request patient passenger relations representative bring adaptive equipment/mobility aids from home or obtain and provide as needed 20. Consult pharmacy regarding effects of med's affecting mobility, cognition, and alternatives 21. Obtain physician order for PT if risk factors associated with mobility are present 22. Obtain physician order for OT as appropriate 23. Utilize diversional activities 24. Educate patient and patient passenger relations representative how to maintain a safe environment during visitation times (notify nurse prior to leaving bedside) 25. Consider appropriateness of medical or non-medical reception specialist 26. Set up voiding schedule as appropriate (every 2 hours) Outcome: Progressing Note: Evaluation of progress towards goal: Patient currently free from falls, up standby. Problem: Safety - Violent/Self-Destructive Restraint Goal: Appropriate for restraints Description: INTERVENTIONS 1. Assess and document the patient's behavior or symptoms that indicate continued need for restraint, notify LIP and obtain renewal orders as indicated --Q4H for patient age 18 or older --Q2H for patients age 9 through 17 --Q1H for patients age 8 and under 2. Verify that a physician, other LIP, or trained registered nurse has performed a fact to face examination within one hour of restraint application 3. Identify and implement measures to help patient regain control, assess readiness for release and initiate progressive release per policy Note: Evaluation of progress towards goal: Patient previous in non-violent restraints, became very aggressive and verbally abusive, not able to redirect him verbally. Problem: Safety - Medical Restraint Goal: Remains free of injury from restraints (Restraint for Interference with [employer] Power Plant Manager) Description: INTERVENTIONS: 1. Determine that other, less restrictive measures have been tried or would not be effective before applying the restraint 2. Evaluate the patient's condition at the time of restraint application 3. Inform patient/family regarding the reason for restraint 4. Q2H: Monitor safety, Vital signs, psychosocial status, signs of injury, skin integrity, circulation, neurovascular status in affected extremities, respiratory status, comfort, nutrition and hydration, hygiene, ROM, elimination needs 5. Doctor will be notified of restraint 6. RN properly applies restraints per physician order 07/11/2024108 by MARCI Barrow Outcome: Completed Note: Evaluation of progress towards goal: 07/10/[id number] by MARCI Barrow Outcome: Progressing Note: Evaluation of progress towards goal: Q2H: Monitor safety, Vital signs, psychosocial status, signs of injury, skin integrity, circulation, neurovascular status in affected extremities, respiratory status, comfort, nutrition and hydration, hygiene, ROM, elimination needs Goal: Free from restraint(s) (Restraint for Interference with Hydro[employer] Power Plant Manager) Description: INTERVENTIONS: 1. ONCE/SHIFT or MINIMUM Q12H: Assess and document the continuing need for restraints 2. Order is valid for the duration of the episode of care 3. Discontinue at the earliest possible time once the reason for restraints no longer exists 4. Identify and implement measures to help patient regain control 5. Food, fluids, and toilet offered at a minimum of every 2 hours 6. RN modifies the patient's plan of care by entering a problem statement related to safety; individualizes the safety outcome 07/11/2024108 by MARCI Barrow Outcome: Completed Note: Evaluation of progress towards goal: 07/10/2024 2236 by MARCI Barrow Outcome: Progressing Note: Evaluation of progress towards goal: Q2H: Monitor safety, Vital signs, psychosocial status, signs of injury, skin integrity, circulation, neurovascular status in affected extremities, respiratory status, comfort, nutrition and hydration, hygiene, ROM, elimination needs BEHAVIORAL RESTRAINTS PROVIDER ONE HOUR [id number] EVALUATION NOTE Noé Jeffery was evaluated on 07/10/2024 at 2350. Called to bedside after patient starting to become aggressive and trying to get out of soft wrists placed during day shift. Nursing staff escalated to violent restraints as patient got up on his hands in knees in bed. Security at bedside to help reposition patient appropriately in bed. Patient verbally hostile, not answering questions appropriately. The patient's immediate situation: Patient became physically aggressive with others, Patient made verbal threats to others, Patient pulling medical devices. The patient's reaction to the intervention(s): Patient failed to respond to verbal redirection, Patient became physically aggressive, Patient became verbally threatening and Patient did not redirect with verbal cues. The patient's medical and behavioral condition was evaluated. The evaluation included a review of: patient history, review of systems and medications. At this time the: patient is psychmotor agitated, threatened staff and has poor impulse control and impaired judgement. Need to continue restraint/seclusion order: Yes Patient needs restraints due to imminent risk of harm to self and others. Jackson Peterson PA-C 07/11/24 0036 Problem: Safety Goal: Patient will be injury free during hospitalization Description: INTERVENTIONS: 1. Assess patient's risk for falls and implement fall prevention plan of care per policy 2. Provide and maintain a safe environment 3. Proper use of double Identifiers 4. Medication administration using the 5 rights 5. Hand hygiene 6. Specimens are labeled at the bedside 7. Instruct patient/ patient passenger relations representative about use of safety devices 8. Include patient/ patient passenger relations representative in decisions related to safety Outcome: Progressing Note: Evaluation of progress towards goal: Patient remains injury and fall free. Safety precautions in place: call light within reach, bed in lowest position, personal belongings within reach, oriented to environment, and non-slip footwear on. Problem: Infection Goal: Absence of infection during hospitalization Description: INTERVENTIONS 1. Assess and monitor for signs and symptoms of infection. 2. Monitor lab/diagnostic results. 3. Monitor all insertion sites i.e., indwelling lines, tubes and drains. 4. Monitor endotracheal (as able) and nasal secretions for changes in amount and color. 5. Administer medications as ordered. 6. Instruct and encourage patient and family to use good hand hygiene technique. 7. Identify and instruct patient/patient passenger relations representative in use of appropriate isolation precautions for identified infection/symptoms. 8. Provide and discuss with patient/patient passenger relations representative on educational MDRO sheet. 9. Encourage and monitor nutritional status daily and consult e commerce developer if indicated. 10. Implement neutropenic guidelines as needed. Outcome: Progressing Note: Evaluation of progress towards goal: Patient remains free of any signs of infection. Signs and symptoms being monitor such as fevers, chills, warm/red areas. Problem: Knowledge Deficit Goal: Patient/patient passenger relations representative demonstrates understanding of disease process, treatment plan, medications, and discharge instructions Description: INTERVENTIONS 1. Complete learning assessment and assess knowledge base 2. Provide teaching at level of understanding 3. Provide teaching via preferred learning method(s) Outcome: Progressing Note: Evaluation of progress towards goal: Patient verbalizes understanding of disease process, treatment plan, medications, and discharge plan. Continue to update with any changes. Problem: Discharge Planning Goal: Discharge to post-acute care, other facility, or home with appropriate resources Description: Patient's goal is: INTERVENTIONS 1. Conduct assessment to determine patient/family and health care team treatment goals, and need for post-acute services based on payer coverage, community resources, and patient preferences, and barriers to discharge 2. Coordinate with Social work, Care Navigation, and Utilization Review to arrange appropriate level of services according to patient's needs based on patient preference and payer coverage in collaboration with the physician and health care team 3. Address psychosocial, clinical, and financial barriers to discharge as identified in assessment in conjunction with the patient/family and health care team 4. Consult appropriate ancillary services (i.e.. PT/OT/ST, etc) as needed 5. Communicate with and update the patient/family, physician, and health care team regarding progress on the discharge plan 6. Identify discharge learning needs (meds, wound care, etc). 7. Arrange for needed discharge transportation as appropriate Outcome: Progressing Note: Evaluation of progress towards goal: Patient verbalizes discharge plan. Will continue to update with any changes. Problem: Neurological Deficit Goal: Neurological status is stable or improving Description: Patient's goal is: INTERVENTIONS 1. Complete Neurological assessment as indicated/ordered 2. Initiate measures to prevent increased intracranial pressure 3. Monitor and assess patient's level of consciousness, motor function, sensory function, and level of assistance needed for ADLs 4. Monitor and report changes from baseline 5. Maintain blood pressure and fluid volume within ordered parameters to optimize cerebral perfusion and minimize risk of hemorrhage 6. Monitor labs and diagnostic tests 7. Administer anti-seizure medications as ordered 8. Maintain airway, patient safety and administer oxygen as ordered 9. Monitor patient for seizure activity, document and report duration and description of seizure to LIP 10. If seizure occurs, turn patient to side and suction secretions as needed 11. Reorient patient post seizure 12. Seizure pads on all 4 side rails 13. Instruct patient/family to notify RN of any seizure activity 14. Instruct patient/family to call for assistance with activity based on assessment 15. Utilize bleeding precautions if thrombolytic given Outcome: Progressing Note: Evaluation of progress towards goal: Assess and report any changes in neurological status. Neurological status and vital signs q4h and with any changes in condition. Problem: Anxiety Goal: Anxiety is at manageable level Description: Patient's goal is: INTERVENTIONS 1. Assess and monitor patient's anxiety level 2. Monitor for signs and symptoms of anxiety both physical and emotional (heart palpitations, chest pain, shortness of breath, headaches, nausea, feeling jumpy, restlessness, irritable, apprehensive) 3. Reorient/orient patient to unit/surroundings 4. Explain treatment plan 5. Explain tests/procedures prior to initiation 6. Encourage participation in care 7. Encourage verbalization of concerns/fears 8. Assess coping mechanisms 9. Assist in developing anxiety-reducing skills 10. Administer complimentary therapies 11. Manage patient's environment 12. Limit or eliminate stimulants such as caffeine and nicotine 13. Collaborate with ancillary departments 14. Include patient/patient passenger relations representative in decisions related to anxiety Outcome: Progressing Note: Evaluation of progress towards goal: Patient's anxiety is at manageable level. Problem: Safety - Medical Restraint Goal: Remains free of injury from restraints (Restraint for Interference with Hydro[employer] Power Plant Manager) Description: INTERVENTIONS: 1. Determine that other, less restrictive measures have been tried or would not be effective before applying the restraint 2. Evaluate the patient's condition at the time of restraint application 3. Inform patient/family regarding the reason for restraint 4. Q2H: Monitor safety, Vital signs, psychosocial status, signs of injury, skin integrity, circulation, neurovascular status in affected extremities, respiratory status, comfort, nutrition and hydration, hygiene, ROM, elimination needs 5. Doctor will be notified of restraint 6. RN properly applies restraints per physician order Outcome: Progressing Note: Evaluation of progress towards goal: Q2H: Monitor safety, Vital signs, psychosocial status, signs of injury, skin integrity, circulation, neurovascular status in affected extremities, respiratory status, comfort, nutrition and hydration, hygiene, ROM, elimination needs Goal: Free from restraint(s) (Restraint for Interference with Hydro[employer] Power Plant Manager) Description: INTERVENTIONS: 1. ONCE/SHIFT or MINIMUM Q12H: Assess and document the continuing need for restraints 2. Order is valid for the duration of the episode of care 3. Discontinue at the earliest possible time once the reason for restraints no longer exists 4. Identify and implement measures to help patient regain control 5. Food, fluids, and toilet offered at a minimum of every 2 hours 6. RN modifies the patient's plan of care by entering a problem statement related to safety; individualizes the safety outcome Outcome: Progressing Note: Evaluation of progress towards goal: Q2H: Monitor safety, Vital signs, psychosocial status, signs of injury, skin integrity, circulation, neurovascular status in affected extremities, respiratory status, comfort, nutrition and hydration, hygiene, ROM, elimination needs Problem: Multi-Drug Resistant Organism / Rule-Out Infection Prevention Goal: Prevent transmission of infection Description: INTERVENTIONS 1. Place patient in private room or in room with patient with same disease 2. Discard single-use items 3. Clean reusable equipment between patients 4. Wear gloves for direct and indirect contact with patient or contaminants 5. Change gloves between tasks and procedures 6. Wash hands before and after caring for each patient 7. Wear appropriate personal protective equipment in relation to the indicated isolation type 8. Place appropriate isolation signage on patient's door 9. Provide patient/ patient passenger relations representative with isolation education. Outcome: Progressing Note: Evaluation of progress towards goal: Discard single-use items. Clean reusable equipment. Wear gloves for direct and indirect patient care. Wash hands before and after care of patient. Problem: Moderate - High Risk Fall Score Description: Gallegos Fall Score of =/> [address] [facility] Assessment Goal: Patient should be free from fall Description: Interventions: 1. [place] to environment 2. Hourly rounds addressing the 4 P's (Pain, Positioning, Possessions, Potty) 3. Clear area of hazards (spills, clutter, electrical cords, unnecessary equipment) 4. Place equipment (bed & TV controls, call light, phone, urinal) within reach 5. Encourage patient to wear glasses and hearing aides as appropriate 6. Maintain bed in lowest position 7. Lock wheels on bed/wheelchair 8. Provide adequate lighting, including night light 9. Assess need for additional bedding, food/fluids, pain med's prior to sleep/routinely 10. Provide gripper slippers or personal non-skid footwear 11. Teach patient and patient passenger relations representative to maintain environment for safety and engage in all aspects of fall prevention program 12. Remind patient to call for help before getting out of bed 13. Initiate bed/chair/exit alarms supportive devices as appropriate, (chair wedge, no-skid floor mat, raised edge mattress, hip protectors) 14. Locate patient bed assignment for optimal visualization 15. Evaluate and identify Safe Patient Handling Equipment needs 16. Provide supervision when out of bed or chair 17. Utilize gait belt as needed to assist with ambulation 18. Place adaptive equipment (cane, walker) within reach 19. Request patient passenger relations representative bring adaptive equipment/mobility aids from home or obtain and provide as needed 20. Consult pharmacy regarding effects of med's affecting mobility, cognition, and alternatives 21. Obtain physician order for PT if risk factors associated with mobility are present 22. Obtain physician order for OT as appropriate 23. Utilize diversional activities 24. Educate patient and patient passenger relations representative how to maintain a safe environment during visitation times (notify nurse prior to leaving bedside) 25. Consider appropriateness of medical or non-medical reception specialist 26. Set up voiding schedule as appropriate (every 2 hours) Outcome: Progressing Note: Evaluation of progress towards goal: Patient remains injury and fall free. Safety precautions in place: call light within reach, bed in lowest position, personal belongings within reach, oriented to environment, and non-slip footwear on. Problem: Safety Goal: Patient will be injury free during hospitalization Description: INTERVENTIONS: 1. Assess patient's risk for falls and implement fall prevention plan of care per policy 2. Provide and maintain a safe environment 3. Proper use of double Identifiers 4. Medication administration using the 5 rights 5. Hand hygiene 6. Specimens are labeled at the bedside 7. Instruct patient/ patient passenger relations representative about use of safety devices 8. Include patient/ patient passenger relations representative in decisions related to safety Outcome: Progressing Note: Evaluation of progress towards goal: safety maintained & call light in reach Problem: Infection Goal: Absence of infection during hospitalization Description: INTERVENTIONS 1. Assess and monitor for signs and symptoms of infection. 2. Monitor lab/diagnostic results. 3. Monitor all insertion sites i.e., indwelling lines, tubes and drains. 4. Monitor endotracheal (as able) and nasal secretions for changes in amount and color. 5. Administer medications as ordered. 6. Instruct and encourage patient and family to use good hand hygiene technique. 7. Identify and instruct patient/patient passenger relations representative in use of appropriate isolation precautions for identified infection/symptoms. 8. Provide and discuss with patient/patient passenger relations representative on educational MDRO sheet. 9. Encourage and monitor nutritional status daily and consult e commerce developer if indicated. 10. Implement neutropenic guidelines as needed. Outcome: Progressing Note: Evaluation of progress towards goal: patient remains afebrile at this time Problem: Knowledge Deficit Goal: Patient/patient passenger relations representative demonstrates understanding of disease process, treatment plan, medications, and discharge instructions Description: INTERVENTIONS 1. Complete learning assessment and assess knowledge base 2. Provide teaching at level of understanding 3. Provide teaching via preferred learning method(s) Outcome: Progressing Note: Evaluation of progress towards goal: POC discussed/updated & Qs addressed. Problem: Discharge Planning Goal: Discharge to post-acute care, other facility, or home with appropriate resources Description: Patient's goal is: INTERVENTIONS 1. Conduct assessment to determine patient/family and health care team treatment goals, and need for post-acute services based on payer coverage, community resources, and patient preferences, and barriers to discharge 2. Coordinate with Social work, Care Navigation, and Utilization Review to arrange appropriate level of services according to patient's needs based on patient preference and payer coverage in collaboration with the physician and health care team 3. Address psychosocial, clinical, and financial barriers to discharge as identified in assessment in conjunction with the patient/family and health care team 4. Consult appropriate ancillary services (i.e.. PT/OT/ST, etc) as needed 5. Communicate with and update the patient/family, physician, and health care team regarding progress on the discharge plan 6. Identify discharge learning needs (meds, wound care, etc). 7. Arrange for needed discharge transportation as appropriate Outcome: Progressing Note: Evaluation of progress towards goal: d/c plan updated & Qs addressed Problem: Neurological Deficit Goal: Neurological status is stable or improving Description: Patient's goal is: INTERVENTIONS 1. Complete Neurological assessment as indicated/ordered 2. Initiate measures to prevent increased intracranial pressure 3. Monitor and assess patient's level of consciousness, motor function, sensory function, and level of assistance needed for ADLs 4. Monitor and report changes from baseline 5. Maintain blood pressure and fluid volume within ordered parameters to optimize cerebral perfusion and minimize risk of hemorrhage 6. Monitor labs and diagnostic tests 7. Administer anti-seizure medications as ordered 8. Maintain airway, patient safety and administer oxygen as ordered 9. Monitor patient for seizure activity, document and report duration and description of seizure to LIP 10. If seizure occurs, turn patient to side and suction secretions as needed 11. Reorient patient post seizure 12. Seizure pads on all 4 side rails 13. Instruct patient/family to notify RN of any seizure activity 14. Instruct patient/family to call for assistance with activity based on assessment 15. Utilize bleeding precautions if thrombolytic given Outcome: Progressing Note: Evaluation of progress towards goal: Neuro Fx remains unstable and laBILE AT THIS TIME Problem: Anxiety Goal: Anxiety is at manageable level Description: Patient's goal is: INTERVENTIONS 1. Assess and monitor patient's anxiety level 2. Monitor for signs and symptoms of anxiety both physical and emotional (heart palpitations, chest pain, shortness of breath, headaches, nausea, feeling jumpy, restlessness, irritable, apprehensive) 3. Reorient/orient patient to unit/surroundings 4. Explain treatment plan 5. Explain tests/procedures prior to initiation 6. Encourage participation in care 7. Encourage verbalization of concerns/fears 8. Assess coping mechanisms 9. Assist in developing anxiety-reducing skills 10. Administer complimentary therapies 11. Manage patient's environment 12. Limit or eliminate stimulants such as caffeine and nicotine 13. Collaborate with ancillary departments 14. Include patient/patient passenger relations representative in decisions related to anxiety Outcome: Progressing Note: Evaluation of progress towards goal: discussed w/ patient coping strategies & dietary changes that may aid in controlling stress & anxiety. Problem: Safety - Medical Restraint Goal: Remains free of injury from restraints (Restraint for Interference with [employer] Manager) Description: INTERVENTIONS: 1. Determine that other, less restrictive measures have been tried or would not be effective before applying the restraint 2. Evaluate the patient's condition at the time of restraint application 3. Inform patient/family regarding the reason for restraint 4. Q2H: Monitor safety, Vital signs, psychosocial status, signs of injury, skin integrity, circulation, neurovascular status in affected extremities, respiratory status, comfort, nutrition and hydration, hygiene, ROM, elimination needs 5. Doctor will be notified of restraint 6. RN properly applies restraints per physician order Outcome: Progressing Note: Evaluation of progress towards goal: IN PLACE TO KEEP PATIENT FROM REMOVING LINES Goal: Free from restraint(s) (Restraint for Interference with [employer] Manager) Description: INTERVENTIONS: 1. ONCE/SHIFT or MINIMUM Q12H: Assess and document the continuing need for restraints 2. Order is valid for the duration of the episode of care 3. Discontinue at the earliest possible time once the reason for restraints no longer exists 4. Identify and implement measures to help patient regain control 5. Food, fluids, and toilet offered at a minimum of every 2 hours 6. RN modifies the patient's plan of care by entering a problem statement related to safety; individualizes the safety outcome Outcome: Progressing Note: Evaluation of progress towards goal: IN PLACE TO KEEP PATIENT FROM REMOVING LINES Problem: Multi-Drug Resistant Organism / Rule-Out Infection Prevention Goal: Prevent transmission of infection Description: INTERVENTIONS 1. Place patient in private room or in room with patient with same disease 2. Discard single-use items 3. Clean reusable equipment between patients 4. Wear gloves for direct and indirect contact with patient or contaminants 5. Change gloves between tasks and procedures 6. Wash hands before and after caring for each patient 7. Wear appropriate personal protective equipment in relation to the indicated isolation type 8. Place appropriate isolation signage on patient's door 9. Provide patient/ patient passenger relations representative with isolation education. Outcome: Progressing Note: Evaluation of progress towards goal: patient remains afebrile at this time Problem: Moderate - High Risk Fall Score Description: Gallegos Fall Score of =/> 25 or indicated by [facility] Assessment Goal: Patient should be free from fall Description: Interventions: 1. [place] to environment 2. Hourly rounds addressing the 4 P's (Pain, Positioning, Possessions, Potty) 3. Clear area of hazards (spills, clutter, electrical cords, unnecessary equipment) 4. Place equipment (bed & TV controls, call light, phone, urinal) within reach 5. Encourage patient to wear glasses and hearing aides as appropriate 6. Maintain bed in lowest position 7. Lock wheels on bed/wheelchair 8. Provide adequate lighting, including night light 9. Assess need for additional bedding, food/fluids, pain med's prior to sleep/routinely 10. Provide gripper slippers or personal non-skid footwear 11. Teach patient and patient passenger relations representative to maintain environment for safety and engage in all aspects of fall prevention program 12. Remind patient to call for help before getting out of bed 13. Initiate bed/chair/exit alarms supportive devices as appropriate, (chair wedge, no-skid floor mat, raised edge mattress, hip protectors) 14. Locate patient bed assignment for optimal visualization 15. Evaluate and identify Safe Patient Handling Equipment needs 16. Provide supervision when out of bed or chair 17. Utilize gait belt as needed to assist with ambulation 18. Place adaptive equipment (cane, walker) within reach 19. Request patient passenger relations representative bring adaptive equipment/mobility aids from home or obtain and provide as needed 20. Consult pharmacy regarding effects of med's affecting mobility, cognition, and alternatives 21. Obtain physician order for PT if risk factors associated with mobility are present 22. Obtain physician order for OT as appropriate 23. Utilize diversional activities 24. Educate patient and patient passenger relations representative how to maintain a safe environment during visitation times (notify nurse prior to leaving bedside) 25. Consider appropriateness of medical or non-medical reception specialist 26. Set up voiding schedule as appropriate (every 2 hours) Outcome: Progressing Note: Evaluation of progress towards goal: patient remains free of injury & verbalizes understanding of fall prevention; call light in reach DISCHARGE PLANNING NOTE Per RN during discharge transition rounds, barriers to discharge are: MRI with sedation today, LP with sedation today, restraints removed after procedures today, assess as needed for restraints, re-consult psych. Discharge Plan: [facility] discussed case with colin Solorio SW Manager [employer] will continue to follow for any discharge needs. - Lesia Caba RN 07/10/24 3:16 PM 07/10/24 1145: Evaluated patient after his procedures, he is calm at this time and currently not threat to himself or staff therefore we will discontinue violent restraints. He is though pulling at his lines and IV so will place bilateral soft wrist restraints. We will re-evaluate as needed Nichol Heath MD SPECIMENS X4 WERE COLLECTED, PROCESSED, AND SENT TO LAB BY DR. ARNULFO HALEY. Problem: Safety Goal: Patient will be injury free during hospitalization Description: INTERVENTIONS: 1. Assess patient's risk for falls and implement fall prevention plan of care per policy 2. Provide and maintain a safe environment 3. Proper use of double Identifiers 4. Medication administration using the 5 rights 5. Hand hygiene 6. Specimens are labeled at the bedside 7. Instruct patient/ patient passenger relations representative about use of safety devices 8. Include patient/ patient passenger relations representative in decisions related to safety Outcome: Progressing Note: Evaluation of progress towards goal: Proper identifiers used with patient care and medication administration. Remains free of injury during shift Problem: Infection Goal: Absence of infection during hospitalization Description: INTERVENTIONS 1. Assess and monitor for signs and symptoms of infection. 2. Monitor lab/diagnostic results. 3. Monitor all insertion sites i.e., indwelling lines, tubes and drains. 4. Monitor endotracheal (as able) and nasal secretions for changes in amount and color. 5. Administer medications as ordered. 6. Instruct and encourage patient and family to use good hand hygiene technique. 7. Identify and instruct patient/patient passenger relations representative in use of appropriate isolation precautions for identified infection/symptoms. 8. Provide and discuss with patient/patient passenger relations representative on educational MDRO sheet. 9. Encourage and monitor nutritional status daily and consult e commerce developer if indicated. 10. Implement neutropenic guidelines as needed. Outcome: Progressing Note: Evaluation of progress towards goal: Skin integrity remains in stable condition; remains w/o ss of infection, fever, pain, or increased discomfort. Problem: Knowledge Deficit Goal: Patient/patient passenger relations representative demonstrates understanding of disease process, treatment plan, medications, and discharge instructions Description: INTERVENTIONS 1. Complete learning assessment and assess knowledge base 2. Provide teaching at level of understanding 3. Provide teaching via preferred learning method(s) Outcome: Progressing Note: Evaluation of progress towards goal: Verbalizes understanding of current treatment plan as educated. Will continue to educate for understanding. Problem: Discharge Planning Goal: Discharge to post-acute care, other facility, or home with appropriate resources Description: Patient's goal is: INTERVENTIONS 1. Conduct assessment to determine patient/family and health care team treatment goals, and need for post-acute services based on payer coverage, community resources, and patient preferences, and barriers to discharge 2. Coordinate with Social work, Care Navigation, and Utilization Review to arrange appropriate level of services according to patient's needs based on patient preference and payer coverage in collaboration with the physician and health care team 3. Address psychosocial, clinical, and financial barriers to discharge as identified in assessment in conjunction with the patient/family and health care team 4. Consult appropriate ancillary services (i.e.. PT/OT/ST, etc) as needed 5. Communicate with and update the patient/family, physician, and health care team regarding progress on the discharge plan 6. Identify discharge learning needs (meds, wound care, etc). 7. Arrange for needed discharge transportation as appropriate Outcome: Progressing Note: Evaluation of progress towards goal: Discharge planning in process. Will continue to monitor for discharge needs. Problem: Low Risk Fall Score Description: Gallegos Fall Score of 0 - 24 or indicated by [facility] Assessment Goal: Patient should be free from fall Description: Interventions: 1. [place] to environment 2. Hourly rounds addressing the 4 P's (Pain, Positioning, Possessions, Potty) 3. Clear area of hazards (spills, clutter, electrical cords, unnecessary equipment) 4. Place equipment (bed & TV controls, call light, phone, urinal) within reach 5. Encourage patient to wear glasses and hearing aides as appropriate 6. Maintain bed in lowest position 7. Lock wheels on bed/wheelchair 8. Provide adequate lighting, including night light 9. Assess need for additional bedding, food/fluids, pain med's prior to sleep/routinely 10. Provide gripper slippers or personal non-skid footwear 11. Teach patient and patient passenger relations representative to maintain environment for safety and engage in all aspects of fall prevention program Outcome: Progressing Note: Evaluation of progress towards goal: Call light within reach. Remains free of fall or injury. Environment free of clutter. Problem: Neurological Deficit Goal: Neurological status is stable or improving Description: Patient's goal is: INTERVENTIONS 1. Complete Neurological assessment as indicated/ordered 2. Initiate measures to prevent increased intracranial pressure 3. Monitor and assess patient's level of consciousness, motor function, sensory function, and level of assistance needed for ADLs 4. Monitor and report changes from baseline 5. Maintain blood pressure and fluid volume within ordered parameters to optimize cerebral perfusion and minimize risk of hemorrhage 6. Monitor labs and diagnostic tests 7. Administer anti-seizure medications as ordered 8. Maintain airway, patient safety and administer oxygen as ordered 9. Monitor patient for seizure activity, document and report duration and description of seizure to LIP 10. If seizure occurs, turn patient to side and suction secretions as needed 11. Reorient patient post seizure 12. Seizure pads on all 4 side rails 13. Instruct patient/family to notify RN of any seizure activity 14. Instruct patient/family to call for assistance with activity based on assessment 15. Utilize bleeding precautions if thrombolytic given Outcome: Progressing Note: Evaluation of progress towards goal: Neurological status evaluated for orientation, level of consciousness, motor function and sensory perception. Problem: Anxiety Goal: Anxiety is at manageable level Description: Patient's goal is: INTERVENTIONS 1. Assess and monitor patient's anxiety level 2. Monitor for signs and symptoms of anxiety both physical and emotional (heart palpitations, chest pain, shortness of breath, headaches, nausea, feeling jumpy, restlessness, irritable, apprehensive) 3. Reorient/orient patient to unit/surroundings 4. Explain treatment plan 5. Explain tests/procedures prior to initiation 6. Encourage participation in care 7. Encourage verbalization of concerns/fears 8. Assess coping mechanisms 9. Assist in developing anxiety-reducing skills 10. Administer complimentary therapies 11. Manage patient's environment 12. Limit or eliminate stimulants such as caffeine and nicotine 13. Collaborate with ancillary departments 14. Include patient/patient passenger relations representative in decisions related to anxiety Outcome: Progressing Note: Evaluation of progress towards goal: Patient verbalizes a tolerable anxiety level and remains free of signs and symptoms of anxiety. Will continue to explain treatment plan and monitor for changes in anxiety levels. Problem: Safety - Violent/Self-Destructive Restraint Goal: Appropriate for restraints Description: INTERVENTIONS 1. Assess and document the patient's behavior or symptoms that indicate continued need for restraint, notify LIP and obtain renewal orders as indicated --Q4H for patient age 18 or older --Q2H for patients age 9 through 17 --Q1H for patients age 8 and under 2. Verify that a physician, other LIP, or trained registered nurse has performed a fact to face examination within one hour of restraint application 3. Identify and implement measures to help patient regain control, assess readiness for release and initiate progressive release per policy Outcome: Progressing Note: Evaluation of progress towards goal: Patient assessed frequently for need to continue restraints. Goal: Remains free of injury from restraints Description: INTERVENTIONS 1. Determine that de-escallation and other, less restrictive measures have been tried or would not be effective before applying the restraint 2. Identify and document the criteria for release from restraint 3. Evaluate the patient's condition at the time of restraint application 4. Inform patient/family regarding the reason for restraint, if applicable 5. On initiation, Q2Hr, and before release: monitor vital signs, comfort, signs of injury, skin integrity, circulation, neurovascular status in affected extremity, respiratory status, nutrition and hydration, toileting and hygiene needs 6. Q15M: Perform safety checks including skin, circulation, sensory, ROM, respiratory and psychological status (patient behaviors) 7. Ensure continuous observation 8. Identify and implement measures to help patient regain control, assess readiness for release and initiate progressive release per policy 9. Monitor the emotional well- being of the patient 10. Conduct debriefing with the patient Outcome: Progressing Note: Evaluation of progress towards goal: Frequent safety checks performed. Skin assessed at restraint site. Pt remains free from injury. Problem: Multi-Drug Resistant Organism / Rule-Out Infection Prevention Goal: Prevent transmission of infection Description: INTERVENTIONS 1. Place patient in private room or in room with patient with same disease 2. Discard single-use items 3. Clean reusable equipment between patients 4. Wear gloves for direct and indirect contact with patient or contaminants 5. Change gloves between tasks and procedures 6. Wash hands before and after caring for each patient 7. Wear appropriate personal protective equipment in relation to the indicated isolation type 8. Place appropriate isolation signage on patient's door 9. Provide patient/ patient passenger relations representative with isolation education. Outcome: Progressing Note: Evaluation of progress towards goal: Skin integrity remains in stable condition; remains w/o ss of infection, fever, pain, or increased discomfort. Problem: Moderate - High Risk Fall Score Description: Gallegos Fall Score of =/> 25 [facility] Goal: Patient should be free from fall Description: Interventions: 1. [place] to environment 2. Hourly rounds addressing the 4 P's (Pain, Positioning, Possessions, Potty) 3. Clear area of hazards (spills, clutter, electrical cords, unnecessary equipment) 4. Place equipment (bed & TV controls, call light, phone, urinal) within reach 5. Encourage patient to wear glasses and hearing aides as appropriate 6. Maintain bed in lowest position 7. Lock wheels on bed/wheelchair 8. Provide adequate lighting, including night light 9. Assess need for additional bedding, food/fluids, pain med's prior to sleep/routinely 10. Provide gripper slippers or personal non-skid footwear 11. Teach patient and patient passenger relations representative to maintain environment for safety and engage in all aspects of fall prevention program 12. Remind patient to call for help before getting out of bed 13. Initiate bed/chair/exit alarms supportive devices as appropriate, (chair wedge, no-skid floor mat, raised edge mattress, hip protectors) 14. Locate patient bed assignment for optimal visualization 15. Evaluate and identify Safe Patient Handling Equipment needs 16. Provide supervision when out of bed or chair 17. Utilize gait belt as needed to assist with ambulation 18. Place adaptive equipment (cane, walker) within reach 19. Request patient passenger relations representative bring adaptive equipment/mobility aids from home or obtain and provide as needed 20. Consult pharmacy regarding effects of med's affecting mobility, cognition, and alternatives 21. Obtain physician order for PT if risk factors associated with mobility are present 22. Obtain physician order for OT as appropriate 23. Utilize diversional activities 24. Educate patient and patient passenger relations representative how to maintain a safe environment during visitation times (notify nurse prior to leaving bedside) 25. Consider appropriateness of medical or non-medical reception specialist 26. Set up voiding schedule as appropriate (every 2 hours) Outcome: Progressing Note: Evaluation of progress towards goal: Call light within reach. Remains free of fall or injury. Environment free of clutter. BEHAVIORAL RESTRAINTS PROVIDER ONE HOUR [id number] EVALUATION NOTE Noé Jeffery was evaluated on 07/09/2024 at 1950. The patient's immediate situation: patient remains agitated in bed, resisting restraints, shouting verbal threats, not answer questions appropriately, The patient's reaction to the intervention(s): patient failed to respond to verbal redirection, became physically aggressive, became verbally threatening and did not redirect with verbal cues. The patient's medical and behavioral condition was evaluated. The evaluation included a review of: patient history, review of systems and medications. At this time the: patient is psychmotor agitated, threatened staff and has poor impulse control and impaired judgement. Need to continue restraint/seclusion order: Yes Patient needs restraints due to imminent risk of harm to self and others. Jackson Peterson PA-C 07/09/242023 NIGHT 07/09/2024-2310 Patient resting in bed with violent restraints still in place with asleep on couch and sitter at bedside. Patient is much more pleasant at this time however, remains confused and disoriented. Need to continue restraint/seclusion order: Yes Patient needs restraints due to imminent risk of harm to self and others. Jackson Peterson PA-C 07/10/24 0055 NIGHT 07/10/2024-0350 On assessment patient is asleep after receiving medications. Per nursing staff and sitter in the room he has been asleep without anymore outbursts. Will continue to keep restraints in place with plans to go for MRI/LP with sedation later this morning due to waking up agitated. Need to continue restraint/seclusion order: Yes Patient needs restraints due to imminent risk of harm to self and others. Jackson Peterson PA-C 07/10/24 0522 Jackson Peterson PA-C 07/10/24 0523 Problem: Safety Goal: Patient will be injury free during hospitalization Description: INTERVENTIONS: 1. Assess patient's risk for falls and implement fall prevention plan of care per policy 2. Provide and maintain a safe environment 3. Proper use of double Identifiers 4. Medication administration using the 5 rights 5. Hand hygiene 6. Specimens are labeled at the bedside 7. Instruct patient/ patient passenger relations representative about use of safety devices 8. Include patient/ patient passenger relations representative in decisions related to safety Outcome: Progressing Note: Evaluation of progress towards goal: safety maintained & call light in reach Problem: Infection Goal: Absence of infection during hospitalization Description: INTERVENTIONS 1. Assess and monitor for signs and symptoms of infection. 2. Monitor lab/diagnostic results. 3. Monitor all insertion sites i.e., indwelling lines, tubes and drains. 4. Monitor endotracheal (as able) and nasal secretions for changes in amount and color. 5. Administer medications as ordered. 6. Instruct and encourage patient and family to use good hand hygiene technique. 7. Identify and instruct patient/patient passenger relations representative in use of appropriate isolation precautions for identified infection/symptoms. 8. Provide and discuss with patient/patient passenger relations representative on educational MDRO sheet. 9. Encourage and monitor nutritional status daily and consult e commerce developer if indicated. 10. Implement neutropenic guidelines as needed. Outcome: Progressing Note: Evaluation of progress towards goal: patient remains afebrile at this time Problem: Knowledge Deficit Goal: Patient/patient passenger relations representative demonstrates understanding of disease process, treatment plan, medications, and discharge instructions Description: INTERVENTIONS 1. Complete learning assessment and assess knowledge base 2. Provide teaching at level of understanding 3. Provide teaching via preferred learning method(s) Outcome: Progressing Note: Evaluation of progress towards goal: POC discussed/updated & Qs addressed. Problem: Discharge Planning Goal: Discharge to post-acute care, other facility, or home with appropriate resources Description: Patient's goal is: INTERVENTIONS 1. Conduct assessment to determine patient/family and health care team treatment goals, and need for post-acute services based on payer coverage, community resources, and patient preferences, and barriers to discharge 2. Coordinate with Social work, Care Navigation, and Utilization Review to arrange appropriate level of services according to patient's needs based on patient preference and payer coverage in collaboration with the physician and health care team 3. Address psychosocial, clinical, and financial barriers to discharge as identified in assessment in conjunction with the patient/family and health care team 4. Consult appropriate ancillary services (i.e.. PT/OT/ST, etc) as needed 5. Communicate with and update the patient/family, physician, and health care team regarding progress on the discharge plan 6. Identify discharge learning needs (meds, wound care, etc). 7. Arrange for needed discharge transportation as appropriate Outcome: Progressing Note: Evaluation of progress towards goal: d/c plan updated & Qs addressed Problem: Low Risk Fall Score Description: Gallegos Fall Score of 0 - [address] [facility] Assessment Goal: Patient should be free from fall Description: Interventions: 1. [place] to environment 2. Hourly rounds addressing the 4 P's (Pain, Positioning, Possessions, Potty) 3. Clear area of hazards (spills, clutter, electrical cords, unnecessary equipment) 4. Place equipment (bed & TV controls, call light, phone, urinal) within reach 5. Encourage patient to wear glasses and hearing aides as appropriate 6. Maintain bed in lowest position 7. Lock wheels on bed/wheelchair 8. Provide adequate lighting, including night light 9. Assess need for additional bedding, food/fluids, pain med's prior to sleep/routinely 10. Provide gripper slippers or personal non-skid footwear 11. Teach patient and patient passenger relations representative to maintain environment for safety and engage in all aspects of fall prevention program Outcome: Progressing Note: Evaluation of progress towards goal: patient remains free of injury, 1:[address] & call light in reach Problem: Neurological Deficit Goal: Neurological status is stable or improving Description: Patient's goal is: INTERVENTIONS 1. Complete Neurological assessment as indicated/ordered 2. Initiate measures to prevent increased intracranial pressure 3. Monitor and assess patient's level of consciousness, motor function, sensory function, and level of assistance needed for ADLs 4. Monitor and report changes from baseline 5. Maintain blood pressure and fluid volume within ordered parameters to optimize cerebral perfusion and minimize risk of hemorrhage 6. Monitor labs and diagnostic tests 7. Administer anti-seizure medications as ordered 8. Maintain airway, patient safety and administer oxygen as ordered 9. Monitor patient for seizure activity, document and report duration and description of seizure to LIP 10. If seizure occurs, turn patient to side and suction secretions as needed 11. Reorient patient post seizure 12. Seizure pads on all 4 side rails 13. Instruct patient/family to notify RN of any seizure activity 14. Instruct patient/family to call for assistance with activity based on assessment 15. Utilize bleeding precautions if thrombolytic given Outcome: Progressing Note: Evaluation of progress towards goal: Neuro Fx changes greatly without obvious, observable causes Problem: Anxiety Goal: Anxiety is at manageable level Description: Patient's goal is: INTERVENTIONS 1. Assess and monitor patient's anxiety level 2. Monitor for signs and symptoms of anxiety both physical and emotional (heart palpitations, chest pain, shortness of breath, headaches, nausea, feeling jumpy, restlessness, irritable, apprehensive) 3. Reorient/orient patient to unit/surroundings 4. Explain treatment plan 5. Explain tests/procedures prior to initiation 6. Encourage participation in care 7. Encourage verbalization of concerns/fears 8. Assess coping mechanisms 9. Assist in developing anxiety-reducing skills 10. Administer complimentary therapies 11. Manage patient's environment 12. Limit or eliminate stimulants such as caffeine and nicotine 13. Collaborate with ancillary departments 14. Include patient/patient passenger relations representative in decisions related to anxiety Outcome: Progressing Note: Evaluation of progress towards goal: discussed w/ patient coping strategies & dietary changes that may aid in controlling stress & anxiety; PRN meds given x1 this shift Problem: Safety - Violent/Self-Destructive Restraint Goal: Appropriate for restraints Description: INTERVENTIONS 1. Assess and document the patient's behavior or symptoms that indicate continued need for restraint, notify LIP and obtain renewal orders as indicated --Q4H for patient age 18 or older --Q2H for patients age 9 through 17 --Q1H for patients age 8 and under 2. Verify that a physician, other LIP, or trained registered nurse has performed a fact to face examination within one hour of restraint application 3. Identify and implement measures to help patient regain control, assess readiness for release and initiate progressive release per policy Outcome: Progressing Note: Evaluation of progress towards goal: patient is a danger to self & others at a moments notice w/o warning of mood change, circulation maintained of wrists & ankles 1;[address] & safety maintained Goal: Remains free of injury from restraints Description: INTERVENTIONS 1. Determine that de-escallation and other, less restrictive measures have been tried or would not be effective before applying the restraint 2. Identify and document the criteria for release from restraint 3. Evaluate the patient's condition at the time of restraint application 4. Inform patient/family regarding the reason for restraint, if applicable 5. On initiation, Q2Hr, and before release: monitor vital signs, comfort, signs of injury, skin integrity, circulation, neurovascular status in affected extremity, respiratory status, nutrition and hydration, toileting and hygiene needs 6. Q15M: Perform safety checks including skin, circulation, sensory, ROM, respiratory and psychological status (patient behaviors) 7. Ensure continuous observation 8. Identify and implement measures to help patient regain control, assess readiness for release and initiate progressive release per policy 9. Monitor the emotional well- being of the patient 10. Conduct debriefing with the patient Outcome: Progressing Note: Evaluation of progress towards goal: safety maintained & call light in reach Problem: Safety - Medical Restraint Goal: Remains free of injury from restraints (Restraint for Interference with Hydro[employer] Power Plant Manager) Description: INTERVENTIONS: 1. Determine that other, less restrictive measures have been tried or would not be effective before applying the restraint 2. Evaluate the patient's condition at the time of restraint application 3. Inform patient/family regarding the reason for restraint 4. Q2H: Monitor safety, Vital signs, psychosocial status, signs of injury, skin integrity, circulation, neurovascular status in affected extremities, respiratory status, comfort, nutrition and hydration, hygiene, ROM, elimination needs 5. Doctor will be notified of restraint 6. RN properly applies restraints per physician order Outcome: Progressing Note: Evaluation of progress towards goal: patient is a danger to self & others at a moments notice w/o warning of mood change, circulation maintained of wrists & ankles 1;[address] & safety maintained Goal: Free from restraint(s) (Restraint for Interference with Hydro[employer] Power Plant Manager) Description: INTERVENTIONS: 1. ONCE/SHIFT or MINIMUM Q12H: Assess and document the continuing need for restraints 2. Order is valid for the duration of the episode of care 3. Discontinue at the earliest possible time once the reason for restraints no longer exists 4. Identify and implement measures to help patient regain control 5. Food, fluids, and toilet offered at a minimum of every 2 hours 6. RN modifies the patient's plan of care by entering a problem statement related to safety; individualizes the safety outcome Outcome: Progressing Note: Evaluation of progress towards goal: patient is a danger to self & others at a moments notice w/o warning of mood change, circulation maintained of wrists & ankles 1;[address] & safety maintained Problem: Multi-Drug Resistant Organism / Rule-Out Infection Prevention Goal: Prevent transmission of infection Description: INTERVENTIONS 1. Place patient in private room or in room with patient with same disease 2. Discard single-use items 3. Clean reusable equipment between patients 4. Wear gloves for direct and indirect contact with patient or contaminants 5. Change gloves between tasks and procedures 6. Wash hands before and after caring for each patient 7. Wear appropriate personal protective equipment in relation to the indicated isolation type 8. Place appropriate isolation signage on patient's door 9. Provide patient/ patient passenger relations representative with isolation education. Outcome: Progressing Note: Evaluation of progress towards goal: patient remains afebrile at this time DISCHARGE PLANNING NOTE Clinical updates including sent to. [facility]. (P# [phone] ; F# [phone]) via [employer] Query Response Note CDI QUERY TEXT: Altered Mental Status - Underlying Cause [id number] Disclaimer: By submitting this query, we are merely seeking further clarification of documentation to accurately reflect all conditions that you are monitoring, evaluating, treating or that extend the hospitalization or utilize additional resources of care. Please utilize your independent clinical judgment when addressing the question(s) below. Please clarify the underlying cause of patient's altered mental status and relate that cause to the alteration in mental status: - Metabolic encephalopathy - Toxic encephalopathy - Other explanation of clinical findings (please specify): 1/18 Neurology PN Likely had paradoxical agitation with benzodiazepines, akathisia/neuropsychiatric symptoms with benadryl . 07/08 Neurology PN Early onset Alzheimer's disease however intact ADLs and IADLs as per family prior to fall in May. Patient was driving until 2 weeks ago. Change in personality, impaired comprehension, attention, episodes of severe aggression, and paranoid behavior as per family is new and noted about 3 weeks ago, after a fall . Thank you, Ethel Bueno RN, CDI [email or web address] The patient's Clinical Indicators include: As above CDI RESPONSE TEXT: Patient has progression of dementia causing agitation, no evidence of metabolic or toxic encephalopathy. Query created by: Ethel Bueno on 07/09/2024 5:42 AM Electronically signed by: Lonnie Baker MD 07/09/2024 3:22 PM DISCHARGE PLANNING NOTE Referral sent to [facility] [address] (P# [phone] ; F# [phone]) via [employer] DISCHARGE PLANNING NOTE Per RN during discharge transition rounds, barriers to discharge are: Needs MRI with sedation, LP with sedation, non-violent restraints, confused, restless, and disoriented, psych needs to see Discharge Plan: TBD. Planning placement or inpatient behavioral unit. CN does not believe it is safe for patient to return home. Psych SW following. Manager [employer] will continue to follow for any discharge needs. - Lesia Caba RN 07/09/24 1:11 PM Problem: Safety Goal: Patient will be injury free during hospitalization Description: INTERVENTIONS: 1. Assess patient's risk for falls and implement fall prevention plan of care per policy 2. Provide and maintain a safe environment 3. Proper use of double Identifiers 4. Medication administration using the 5 rights 5. Hand hygiene 6. Specimens are labeled at the bedside 7. Instruct patient/ patient passenger relations representative about use of safety devices 8. Include patient/ patient passenger relations representative in decisions related to safety Outcome: Progressing Note: Evaluation of progress towards goal: safety precautions in place Problem: Infection Goal: Absence of infection during hospitalization Description: INTERVENTIONS 1. Assess and monitor for signs and symptoms of infection. 2. Monitor lab/diagnostic results. 3. Monitor all insertion sites i.e., indwelling lines, tubes and drains. 4. Monitor endotracheal (as able) and nasal secretions for changes in amount and color. 5. Administer medications as ordered. 6. Instruct and encourage patient and family to use good hand hygiene technique. 7. Identify and instruct patient/patient passenger relations representative in use of appropriate isolation precautions for identified infection/symptoms. 8. Provide and discuss with patient/patient passenger relations representative on educational MDRO sheet. 9. Encourage and monitor nutritional status daily and consult e commerce developer if indicated. 10. Implement neutropenic guidelines as needed. Outcome: Progressing Note: Evaluation of progress towards goal: monitor s/s of infection Problem: Knowledge Deficit Goal: Patient/patient passenger relations representative demonstrates understanding of disease process, treatment plan, medications, and discharge instructions Description: INTERVENTIONS 1. Complete learning assessment and assess knowledge base 2. Provide teaching at level of understanding 3. Provide teaching via preferred learning method(s) Outcome: Progressing Note: Evaluation of progress towards goal: patient education every shift Problem: Discharge Planning Goal: Discharge to post-acute care, other facility, or home with appropriate resources Description: Patient's goal is: INTERVENTIONS 1. Conduct assessment to determine patient/family and health care team treatment goals, and need for post-acute services based on payer coverage, community resources, and patient preferences, and barriers to discharge 2. Coordinate with Social work, Care Navigation, and Utilization Review to arrange appropriate level of services according to patient's needs based on patient preference and payer coverage in collaboration with the physician and health care team 3. Address psychosocial, clinical, and financial barriers to discharge as identified in assessment in conjunction with the patient/family and health care team 4. Consult appropriate ancillary services (i.e.. PT/OT/ST, etc) as needed 5. Communicate with and update the patient/family, physician, and health care team regarding progress on the discharge plan 6. Identify discharge learning needs (meds, wound care, etc). 7. Arrange for needed discharge transportation as appropriate Outcome: Progressing Note: Evaluation of progress towards goal: clinical barriers in place Problem: Low Risk Fall Score Description: Gallegos Fall Score of 0 - [address] [facility] Assessment Goal: Patient should be free from fall Description: Interventions: 1. [place] to environment 2. Hourly rounds addressing the 4 P's (Pain, Positioning, Possessions, Potty) 3. Clear area of hazards (spills, clutter, electrical cords, unnecessary equipment) 4. Place equipment (bed & TV controls, call light, phone, urinal) within reach 5. Encourage patient to wear glasses and hearing aides as appropriate 6. Maintain bed in lowest position 7. Lock wheels on bed/wheelchair 8. Provide adequate lighting, including night light 9. Assess need for additional bedding, food/fluids, pain med's prior to sleep/routinely 10. Provide gripper slippers or personal non-skid footwear 11. Teach patient and patient passenger relations representative to maintain environment for safety and engage in all aspects of fall prevention program Outcome: Progressing Note: Evaluation of progress towards goal: fall precautions, hourly rounding Problem: Neurological Deficit Goal: Neurological status is stable or improving Description: Patient's goal is: INTERVENTIONS 1. Complete Neurological assessment as indicated/ordered 2. Initiate measures to prevent increased intracranial pressure 3. Monitor and assess patient's level of consciousness, motor function, sensory function, and level of assistance needed for ADLs 4. Monitor and report changes from baseline 5. Maintain blood pressure and fluid volume within ordered parameters to optimize cerebral perfusion and minimize risk of hemorrhage 6. Monitor labs and diagnostic tests 7. Administer anti-seizure medications as ordered 8. Maintain airway, patient safety and administer oxygen as ordered 9. Monitor patient for seizure activity, document and report duration and description of seizure to LIP 10. If seizure occurs, turn patient to side and suction secretions as needed 11. Reorient patient post seizure 12. Seizure pads on all 4 side rails 13. Instruct patient/family to notify RN of any seizure activity 14. Instruct patient/family to call for assistance with activity based on assessment 15. Utilize bleeding precautions if thrombolytic given Outcome: Progressing Note: Evaluation of progress towards goal: neuro assessments every 4 hours Problem: Anxiety Goal: Anxiety is at manageable level Description: Patient's goal is: INTERVENTIONS 1. Assess and monitor patient's anxiety level 2. Monitor for signs and symptoms of anxiety both physical and emotional (heart palpitations, chest pain, shortness of breath, headaches, nausea, feeling jumpy, restlessness, irritable, apprehensive) 3. Reorient/orient patient to unit/surroundings 4. Explain treatment plan 5. Explain tests/procedures prior to initiation 6. Encourage participation in care 7. Encourage verbalization of concerns/fears 8. Assess coping mechanisms 9. Assist in developing anxiety-reducing skills 10. Administer complimentary therapies 11. Manage patient's environment 12. Limit or eliminate stimulants such as caffeine and nicotine 13. Collaborate with ancillary departments 14. Include patient/patient passenger relations representative in decisions related to anxiety Outcome: Progressing Note: Evaluation of progress towards goal: therapeutic communication Problem: Safety - Violent/Self-Destructive Restraint Goal: Appropriate for restraints Description: INTERVENTIONS 1. Assess and document the patient's behavior or symptoms that indicate continued need for restraint, notify LIP and obtain renewal orders as indicated --Q4H for patient age 18 or older --Q2H for patients age 9 through 17 --Q1H for patients age 8 and under 2. Verify that a physician, other LIP, or trained registered nurse has performed a fact to face examination within one hour of restraint application 3. Identify and implement measures to help patient regain control, assess readiness for release and initiate progressive release per policy Outcome: Progressing Note: Evaluation of progress towards goal: aggressive behavior at the end of the shift, restraints initiated at 1904 07/08 Goal: Remains free of injury from restraints Description: INTERVENTIONS 1. Determine that de-escallation and other, less restrictive measures have been tried or would not be effective before applying the restraint 2. Identify and document the criteria for release from restraint 3. Evaluate the patient's condition at the time of restraint application 4. Inform patient/family regarding the reason for restraint, if applicable 5. On initiation, Q2Hr, and before release: monitor vital signs, comfort, signs of injury, skin integrity, circulation, neurovascular status in affected extremity, respiratory status, nutrition and hydration, toileting and hygiene needs 6. Q15M: Perform safety checks including skin, circulation, sensory, ROM, respiratory and psychological status (patient behaviors) 7. Ensure continuous observation 8. Identify and implement measures to help patient regain control, assess readiness for release and initiate progressive release per policy 9. Monitor the emotional well- being of the patient 10. Conduct debriefing with the patient Outcome: Progressing Note: Evaluation of progress towards goal: assess restraints every 2 hours Problem: Safety - Medical Restraint Goal: Remains free of injury from restraints (Restraint for Interference with Hydro[employer] Power Plant Manager) Description: INTERVENTIONS: 1. Determine that other, less restrictive measures have been tried or would not be effective before applying the restraint 2. Evaluate the patient's condition at the time of restraint application 3. Inform patient/family regarding the reason for restraint 4. Q2H: Monitor safety, Vital signs, psychosocial status, signs of injury, skin integrity, circulation, neurovascular status in affected extremities, respiratory status, comfort, nutrition and hydration, hygiene, ROM, elimination needs 5. Doctor will be notified of restraint 6. RN properly applies restraints per physician order Outcome: Progressing Note: Evaluation of progress towards goal: monitor response and vitals Goal: Free from restraint(s) (Restraint for Interference with Hydrogen Power Plant Manager) Description: INTERVENTIONS: 1. ONCE/SHIFT or MINIMUM Q12H: Assess and document the continuing need for restraints 2. Order is valid for the duration of the episode of care 3. Discontinue at the earliest possible time once the reason for restraints no longer exists 4. Identify and implement measures to help patient regain control 5. Food, fluids, and toilet offered at a minimum of every 2 hours 6. RN modifies the patient's plan of care by entering a problem statement related to safety; individualizes the safety outcome Outcome: Progressing Note: Evaluation of progress towards goal: fall precautions in place, hourly rounding BEHAVIORAL RESTRAINTS PROVIDER ONE HOUR [id number] EVALUATION NOTE Noé Jeffery was evaluated on 07/08/2024 at 1906. Called to bedside at shift change. Patient physically aggressive cornering staff and outside of his room. Security called to get patient back in bed requiring violent restraints. Patient had similar episode around 0400 this morning requiring same interventions however, was able to come out of restraints during day shift's assessment. The patient's immediate situation: patient became physically aggressive, made verbal threats to others, shouting in the hallway. Per nursing staff and , patient thinks they are intruders and believes he is being robbed. The patient's reaction to the intervention(s): patient failed to respond to verbal redirection, became physically aggressive, became verbally threatening and did not redirect with verbal cues. The patient's medical and behavioral condition was evaluated. The evaluation included a review of: patient history, review of systems and medications. At this time the: patient is psychmotor agitated, threatened staff and has poor impulse control and impaired judgement. Need to continue restraint/seclusion order: Yes Patient needs restraints due to imminent risk of harm to self and others. Jackson Peterson PA-C 07/08/242014 NIGHT07/08/24 On reassessment patient is resting in bed with restraints still in place. Patient appears improved, more pleasant and answering questions appropriately. Alert only to self. Aware he is in the hospital, does not recall which one. Patient tells me the year is 2022. Told me he is here because he is being a bad boy . Denies any pain or discomfort at this time. Patient agrees with having restraints removed so he can rest comfortably through the night. and sitter will remain in the room. Plan of care discussed with patient and at bedside. All questions answered. Need to continue restraint/seclusion order: No Jackson Peterson PA-C 07/08/24 2347 NIGHT07/09/24-3:31 AM Called to bedside after patient woke up to go to restroom and suddenly became verbally abusive and physical aggressive with . Patient was not redirectable, security called to get patient back in restraints. Patient answers questions with curse words only. Need to continue restraint/seclusion order: Yes Patient needs restraints due to imminent risk of harm to self and others. Jackson Peterson PA-C 07/09/24 0344 [facility] NIGHT BEHAVIORAL RESTRAINTS PROVIDER ONE HOUR [id number] EVALUATION NOTE Noé Jeffery was evaluated on 07/08/2023 at 0441. The patient's immediate situation: patient became physically aggressive with others and would not stay in bed/room. The patient's reaction to the intervention(s): patient failed to respond to verbal redirection, became physically aggressive, and did not redirect with verbal cues. The patient's medical and behavioral condition was evaluated. The evaluation included a review of: patient history, review of systems, and medications. At this time the: patient is psychmotor agitated, threatened staff, has poor impulse control and impaired judgement. Need to continue restraint/seclusion order: Yes Patient needs restraints due to imminent risk of harm to self and others. Jackson Peterson PA-C 07/08/24 0446 Problem: Safety Goal: Patient will be injury free during hospitalization Description: INTERVENTIONS: 1. Assess patient's risk for falls and implement fall prevention plan of care per policy 2. Provide and maintain a safe environment 3. Proper use of double Identifiers 4. Medication administration using the 5 rights 5. Hand hygiene 6. Specimens are labeled at the bedside 7. Instruct patient/ patient passenger relations representative about use of safety devices 8. Include patient/ patient passenger relations representative in decisions related to safety Outcome: Progressing Note: Evaluation of progress towards goal: Patient remains free injury at current shift, plan of care still ongoing. Problem: Infection Goal: Absence of infection during hospitalization Description: INTERVENTIONS 1. Assess and monitor for signs and symptoms of infection. 2. Monitor lab/diagnostic results. 3. Monitor all insertion sites i.e., indwelling lines, tubes and drains. 4. Monitor endotracheal (as able) and nasal secretions for changes in amount and color. 5. Administer medications as ordered. 6. Instruct and encourage patient and family to use good hand hygiene technique. 7. Identify and instruct patient/patient passenger relations representative in use of appropriate isolation precautions for identified infection/symptoms. 8. Provide and discuss with patient/patient passenger relations representative on educational MDRO sheet. 9. Encourage and monitor nutritional status daily and consult e commerce developer if indicated. 10. Implement neutropenic guidelines as needed. Outcome: Progressing Note: Evaluation of progress towards goal: Patient has no infection at this time. Problem: Knowledge Deficit Goal: Patient/patient passenger relations representative demonstrates understanding of disease process, treatment plan, medications, and discharge instructions Description: INTERVENTIONS 1. Complete learning assessment and assess knowledge base 2. Provide teaching at level of understanding 3. Provide teaching via preferred learning method(s) Outcome: Progressing Note: Evaluation of progress towards goal: Patient's has been able to demonstrate understanding of disease process, treatment plan, medications and discharge instructions. Problem: Discharge Planning Goal: Discharge to post-acute care, other facility, or home with appropriate resources Description: Patient's goal is: INTERVENTIONS 1. Conduct assessment to determine patient/family and health care team treatment goals, and need for post-acute services based on payer coverage, community resources, and patient preferences, and barriers to discharge 2. Coordinate with Social work, Care Navigation, and Utilization Review to arrange appropriate level of services according to patient's needs based on patient preference and payer coverage in collaboration with the physician and health care team 3. Address psychosocial, clinical, and financial barriers to discharge as identified in assessment in conjunction with the patient/family and health care team 4. Consult appropriate ancillary services (i.e.. PT/OT/ST, etc) as needed 5. Communicate with and update the patient/family, physician, and health care team regarding progress on the discharge plan 6. Identify discharge learning needs (meds, wound care, etc). 7. Arrange for needed discharge transportation as appropriate Outcome: Progressing Note: Evaluation of progress towards goal: Patient is awaiting to be evaluated by PT/OT. Problem: Low Risk Fall Score Description: Gallegos Fall Score of 0 - [address] [facility] Assessment Goal: Patient should be free from fall Description: Interventions: 1. [place] to environment 2. Hourly rounds addressing the 4 P's (Pain, Positioning, Possessions, Potty) 3. Clear area of hazards (spills, clutter, electrical cords, unnecessary equipment) 4. Place equipment (bed & TV controls, call light, phone, urinal) within reach 5. Encourage patient to wear glasses and hearing aides as appropriate 6. Maintain bed in lowest position 7. Lock wheels on bed/wheelchair 8. Provide adequate lighting, including night light 9. Assess need for additional bedding, food/fluids, pain med's prior to sleep/routinely 10. Provide gripper slippers or personal non-skid footwear 11. Teach patient and patient passenger relations representative to maintain environment for safety and engage in all aspects of fall prevention program Outcome: Progressing Note: Evaluation of progress towards goal: Patient remains free from falls at current time, plan of care still ongoing. Problem: Neurological Deficit Goal: Neurological status is stable or improving Description: Patient's goal is: INTERVENTIONS 1. Complete Neurological assessment as indicated/ordered 2. Initiate measures to prevent increased intracranial pressure 3. Monitor and assess patient's level of consciousness, motor function, sensory function, and level of assistance needed for ADLs 4. Monitor and report changes from baseline 5. Maintain blood pressure and fluid volume within ordered parameters to optimize cerebral perfusion and minimize risk of hemorrhage 6. Monitor labs and diagnostic tests 7. Administer anti-seizure medications as ordered 8. Maintain airway, patient safety and administer oxygen as ordered 9. Monitor patient for seizure activity, document and report duration and description of seizure to LIP 10. If seizure occurs, turn patient to side and suction secretions as needed 11. Reorient patient post seizure 12. Seizure pads on all 4 side rails 13. Instruct patient/family to notify RN of any seizure activity 14. Instruct patient/family to call for assistance with activity based on assessment 15. Utilize bleeding precautions if thrombolytic given Outcome: Progressing Note: Evaluation of progress towards goal: Patient's neurological status has been stable, plan of care still ongoing with Q4 hour neuro checks. Problem: Anxiety Goal: Anxiety is at manageable level Description: Patient's goal is: INTERVENTIONS 1. Assess and monitor patient's anxiety level 2. Monitor for signs and symptoms of anxiety both physical and emotional (heart palpitations, chest pain, shortness of breath, headaches, nausea, feeling jumpy, restlessness, irritable, apprehensive) 3. Reorient/orient patient to unit/surroundings 4. Explain treatment plan 5. Explain tests/procedures prior to initiation 6. Encourage participation in care 7. Encourage verbalization of concerns/fears 8. Assess coping mechanisms 9. Assist in developing anxiety-reducing skills 10. Administer complimentary therapies 11. Manage patient's environment 12. Limit or eliminate stimulants such as caffeine and nicotine 13. Collaborate with ancillary departments 14. Include patient/patient passenger relations representative in decisions related to anxiety Outcome: Progressing Note: Evaluation of progress towards goal: Patient is able to manage anxiety level at this time, plan of care still ongoing. Problem: Safety Goal: Patient will be injury free during hospitalization Description: INTERVENTIONS: 1. Assess patient's risk for falls and implement fall prevention plan of care per policy 2. Provide and maintain a safe environment 3. Proper use of double Identifiers 4. Medication administration using the 5 rights 5. Hand hygiene 6. Specimens are labeled at the bedside 7. Instruct patient/ patient passenger relations representative about use of safety devices 8. Include patient/ patient passenger relations representative in decisions related to safety Outcome: Progressing Note: Evaluation of progress towards goal: safety precautions in place, hourly rounding Problem: Infection Goal: Absence of infection during hospitalization Description: INTERVENTIONS 1. Assess and monitor for signs and symptoms of infection. 2. Monitor lab/diagnostic results. 3. Monitor all insertion sites i.e., indwelling lines, tubes and drains. 4. Monitor endotracheal (as able) and nasal secretions for changes in amount and color. 5. Administer medications as ordered. 6. Instruct and encourage patient and family to use good hand hygiene technique. 7. Identify and instruct patient/patient passenger relations representative in use of appropriate isolation precautions for identified infection/symptoms. 8. Provide and discuss with patient/patient passenger relations representative on educational MDRO sheet. 9. Encourage and monitor nutritional status daily and consult e commerce developer if indicated. 10. Implement neutropenic guidelines as needed. Outcome: Progressing Note: Evaluation of progress towards goal: monitor s/s of infection, monitor labs, standard precautions Problem: Knowledge Deficit Goal: Patient/patient passenger relations representative demonstrates understanding of disease process, treatment plan, medications, and discharge instructions Description: INTERVENTIONS 1. Complete learning assessment and assess knowledge base 2. Provide teaching at level of understanding 3. Provide teaching via preferred learning method(s) Outcome: Progressing Note: Evaluation of progress towards goal: encourage questions and discussions about care plan, therapeutic communication, patient education every shift Problem: Discharge Planning Goal: Discharge to post-acute care, other facility, or home with appropriate resources Description: Patient's goal is: INTERVENTIONS 1. Conduct assessment to determine patient/family and health care team treatment goals, and need for post-acute services based on payer coverage, community resources, and patient preferences, and barriers to discharge 2. Coordinate with Social work, Care Navigation, and Utilization Review to arrange appropriate level of services according to patient's needs based on patient preference and payer coverage in collaboration with the physician and health care team 3. Address psychosocial, clinical, and financial barriers to discharge as identified in assessment in conjunction with the patient/family and health care team 4. Consult appropriate ancillary services (i.e.. PT/OT/ST, etc) as needed 5. Communicate with and update the patient/family, physician, and health care team regarding progress on the discharge plan 6. Identify discharge learning needs (meds, wound care, etc). 7. Arrange for needed discharge transportation as appropriate Outcome: Progressing Note: Evaluation of progress towards goal: clinical barriers in place Problem: Low Risk Fall Score Description: Gallegos Fall Score of 0 - 24 or indicated by [facility] Assessment Goal: Patient should be free from fall Description: Interventions: 1. [place] to environment 2. Hourly rounds addressing the 4 P's (Pain, Positioning, Possessions, Potty) 3. Clear area of hazards (spills, clutter, electrical cords, unnecessary equipment) 4. Place equipment (bed & TV controls, call light, phone, urinal) within reach 5. Encourage patient to wear glasses and hearing aides as appropriate 6. Maintain bed in lowest position 7. Lock wheels on bed/wheelchair 8. Provide adequate lighting, including night light 9. Assess need for additional bedding, food/fluids, pain med's prior to sleep/routinely 10. Provide gripper slippers or personal non-skid footwear 11. Teach patient and patient passenger relations representative to maintain environment for safety and engage in all aspects of fall prevention program Outcome: Progressing Note: Evaluation of progress towards goal: fall precautions in place, hourly rounding, call light within reach Query Response Note AUTOMATED QUERY TEXT: Type of Epilepsy: This query seeks further clarification of documentation to reflect all conditions that you are monitoring, evaluating, treating or that extend hospitalization or utilize additional resources. Please utilize your independent clinical judgment when addressing the question(s) below. Please provide further specificity and note if with or without status epilepticus. Clinical indicators include: epilepsy, fall, agitation Options provided: -- Generalized epilepsy -- Epilepsy with intractable seizures -- Epilepsy with simple partial seizures -- Epilepsy with complex partial seizures -- Epilepsy with grand mal (tonic/clonic) seizures -- Other - I will add my own diagnosis -- Dismiss - Not applicable / Not valid AUTOMATED QUERY RESPONSE TEXT: History of epilepsy in childhood from age 1-5 unclear semiology Electronically signed by: Khalif Valerio MD 07/07/2024 7:10 AM Problem: Safety Goal: Patient will be injury free during hospitalization Description: INTERVENTIONS: 1. Assess patient's risk for falls and implement fall prevention plan of care per policy 2. Provide and maintain a safe environment 3. Proper use of double Identifiers 4. Medication administration using the 5 rights 5. Hand hygiene 6. Specimens are labeled at the bedside 7. Instruct patient/ patient passenger relations representative about use of safety devices 8. Include patient/ patient passenger relations representative in decisions related to safety Outcome: Progressing Note: Evaluation of progress towards goal: Patient remains injury and fall free. Safety precautions in place: call light within reach, bed in lowest position, personal belongings within reach, oriented to environment, and non-slip footwear on. Problem: Infection Goal: Absence of infection during hospitalization Description: INTERVENTIONS 1. Assess and monitor for signs and symptoms of infection. 2. Monitor lab/diagnostic results. 3. Monitor all insertion sites i.e., indwelling lines, tubes and drains. 4. Monitor endotracheal (as able) and nasal secretions for changes in amount and color. 5. Administer medications as ordered. 6. Instruct and encourage patient and family to use good hand hygiene technique. 7. Identify and instruct patient/patient passenger relations representative in use of appropriate isolation precautions for identified infection/symptoms. 8. Provide and discuss with patient/patient passenger relations representative on educational MDRO sheet. 9. Encourage and monitor nutritional status daily and consult e commerce developer if indicated. 10. Implement neutropenic guidelines as needed. Outcome: Progressing Note: Evaluation of progress towards goal: Patient remains free of any signs of infection. Signs and symptoms being monitor such as fevers, chills, warm/red areas. Problem: Knowledge Deficit Goal: Patient/patient passenger relations representative demonstrates understanding of disease process, treatment plan, medications, and discharge instructions Description: INTERVENTIONS 1. Complete learning assessment and assess knowledge base 2. Provide teaching at level of understanding 3. Provide teaching via preferred learning method(s) Outcome: Progressing Note: Evaluation of progress towards goal: Patient verbalizes understanding of disease process, treatment plan, medications, and discharge plan. Continue to update with any changes. Problem: Discharge Planning Goal: Discharge to post-acute care, other facility, or home with appropriate resources Description: Patient's goal is: INTERVENTIONS 1. Conduct assessment to determine patient/family and health care team treatment goals, and need for post-acute services based on payer coverage, community resources, and patient preferences, and barriers to discharge 2. Coordinate with Social work, Care Navigation, and Utilization Review to arrange appropriate level of services according to patient's needs based on patient preference and payer coverage in collaboration with the physician and health care team 3. Address psychosocial, clinical, and financial barriers to discharge as identified in assessment in conjunction with the patient/family and health care team 4. Consult appropriate ancillary services (i.e.. PT/OT/ST, etc) as needed 5. Communicate with and update the patient/family, physician, and health care team regarding progress on the discharge plan 6. Identify discharge learning needs (meds, wound care, etc). 7. Arrange for needed discharge transportation as appropriate Outcome: Progressing Note: Evaluation of progress towards goal: Patient verbalizes discharge plan. Will continue to update with any changes. Problem: Low Risk Fall Score Description: Gallegos Fall Score of 0 - [address] [facility] Assessment Goal: Patient should be free from fall Description: Interventions: 1. [place] to environment 2. Hourly rounds addressing the 4 P's (Pain, Positioning, Possessions, Potty) 3. Clear area of hazards (spills, clutter, electrical cords, unnecessary equipment) 4. Place equipment (bed & TV controls, call light, phone, urinal) within reach 5. Encourage patient to wear glasses and hearing aides as appropriate 6. Maintain bed in lowest position 7. Lock wheels on bed/wheelchair 8. Provide adequate lighting, including night light 9. Assess need for additional bedding, food/fluids, pain med's prior to sleep/routinely 10. Provide gripper slippers or personal non-skid footwear 11. Teach patient and patient passenger relations representative to maintain environment for safety and engage in all aspects of fall prevention program Outcome: Progressing Note: Evaluation of progress towards goal: Patient remains injury and fall free. Safety precautions in place: call light within reach, bed in lowest position, personal belongings within reach, oriented to environment, and non-slip footwear on. Problem: Pain Goal: Patient goal is pain score less than 4, able to rest, and participant in treatment plan as appropriate Description: INTERVENTIONS: 1. Encourage patient or legal passenger relations representative to report early pain and ask for pain medicine when needed 2. Assess pain using appropriate pain scale and include the scale used when documenting 3. Administer analgesics based on type and severity of pain and evaluate response within appropriate time frame 4. Implement non-pharmacological measures as appropriate and evaluate response 5. Consider cultural and social influences on pain and pain management 6. Notify LIP if interventions ineffective or patient reports new pain 7. Monitor vital signs including pulse ox, end-tidal CO2 based on pain intervention 8. Reassess pain per policy 9. Teach patient or legal passenger relations representative interventions for comforting Outcome: Completed Note: Evaluation of progress towards goal: Patient has no complaints of pain. Reassessed per policy. An attempt was made to interview the patient today in the presence of his . The patient refused and asked the engineering writer to leave stating that he does not want a psychiatric evaluation. Psychiatry will sign off. Images from the original note were not included. DISCHARGE PLANNING NOTE Roll Forming Machine Operator met with patient, introduced self, and explained role. Patient educated on safe discharge plan. Pt admitted 07/06/2024 with Dementia with behavioral disturbance ([facility]) [F03.918] At risk for long QT syndrome [Z91.89] Altered mental status [R41.82] per chart review. Consults: Neurology and Psychiatry Discharge Barriers per Daily Transition Rounds and chart review: Psych and neuro to see, will need EEG, MRI, CT brain. Past Medical History: Diagnosis Date GERD (gastroesophageal reflux disease) High cholesterol Perforated sigmoid colon ([facility]) Prior to admission patient was living with spouse/significant other and self care. Medical equipment patient used prior to admission includes: CPAP. Patient spouse denies need for transportation/ food/ prescription medication assistance resources. PCP: JAE LOPEZ MD Pharmacy:[facility] PCP and pharmacy confirmed with patient. CN offered to assist with follow up appointment arrangements; JAE LOPEZ MD added to Follow Up Providers for Summary of Care communication. Per spouse-report: Drug use: no Smoking: no ETOH Use: no Current discharge plan is: TBD- pending PT/OT eval Services Requested: Goals: Goals <enter goal here> (pt-stated) Evaluation of progress towards goal: TBD-pending PT/OT eval Will continue to follow as plan of care develops. CN discussed benefits and importance of medication compliance and follow ups. Please feel free to reach out for any discharge planning questions. - Jac Austin RN 07/06/24 4:01 PM Called spouse and left message. Will await call back. - NANCY Martines 07/06/24 3:25 PM Attempted to interview patient in order to complete a psychosocial assessment. Patient did answer any questions posed by SW. Family members (two siblings) where in the room and asked that SW call and speak to spouse as patient would be unable to give any background information. Will speak to spouse. - NANCY Martines 07/06/24 11:02 AM documented in this encounter [facility] 07-22-2024 Nurse Note AVS discussed with patient and family, no further questions about discharge. No further needs identified. Patient taken downstairs by wheelchair to be driven home by . Patient still off unit at this time 11:58 s/p sedated MRI & LP procedure. Per neurologist, Dr Johnson, patient needs to remain flat 1-2hrs & may have regular diet. Roll Forming Machine Operator awaiting patient return to unit & per report 1:1 sitter remains at patient bedside. documented in this encounter [facility] 07-22-2024 Plan of care note Problem: Safety Goal: Patient will be injury free during hospitalization Description: INTERVENTIONS: 1. Assess patient's risk for falls and implement fall prevention plan of care per policy 2. Provide and maintain a safe environment 3. Proper use of double Identifiers 4. Medication administration using the 5 rights 5. Hand hygiene 6. Specimens are labeled at the bedside 7. Instruct patient/ patient passenger relations representative about use of safety devices 8. Include patient/ patient passenger relations representative in decisions related to safety Outcome: Progressing Note: Evaluation of progress towards goal: pt remains free from injury. Family at bedside. Problem: Knowledge Deficit Goal: Patient/patient passenger relations representative demonstrates understanding of disease process, treatment plan, medications, and discharge instructions Description: INTERVENTIONS 1. Complete learning assessment and assess knowledge base 2. Provide teaching at level of understanding 3. Provide teaching via preferred learning method(s) Outcome: Progressing Note: Evaluation of progress towards goal: pt significant other states understanding of care plan and discharge Problem: Discharge Planning Goal: Discharge to post-acute care, other facility, or home with appropriate resources Description: Patient's goal is: INTERVENTIONS 1. Conduct assessment to determine patient/family and health care team treatment goals, and need for post-acute services based on payer coverage, community resources, and patient preferences, and barriers to discharge 2. Coordinate with Social work, Care Navigation, and Utilization Review to arrange appropriate level of services according to patient's needs based on patient preference and payer coverage in collaboration with the physician and health care team 3. Address psychosocial, clinical, and financial barriers to discharge as identified in assessment in conjunction with the patient/family and health care team 4. Consult appropriate ancillary services (i.e.. PT/OT/ST, etc) as needed 5. Communicate with and update the patient/family, physician, and health care team regarding progress on the discharge plan 6. Identify discharge learning needs (meds, wound care, etc). 7. Arrange for needed discharge transportation as appropriate Outcome: Progressing Note: Evaluation of progress towards goal: discharge orders in place and pt to dc home later today with family care and outpt rehab services Problem: Neurological Deficit Goal: Neurological status is stable or improving Description: Patient's goal is: INTERVENTIONS 1. Complete Neurological assessment as indicated/ordered 2. Initiate measures to prevent increased intracranial pressure 3. Monitor and assess patient's level of consciousness, motor function, sensory function, and level of assistance needed for ADLs 4. Monitor and report changes from baseline 5. Maintain blood pressure and fluid volume within ordered parameters to optimize cerebral perfusion and minimize risk of hemorrhage 6. Monitor labs and diagnostic tests 7. Administer anti-seizure medications as ordered 8. Maintain airway, patient safety and administer oxygen as ordered 9. Monitor patient for seizure activity, document and report duration and description of seizure to LIP 10. If seizure occurs, turn patient to side and suction secretions as needed 11. Reorient patient post seizure 12. Seizure pads on all 4 side rails 13. Instruct patient/family to notify RN of any seizure activity 14. Instruct patient/family to call for assistance with activity based on assessment 15. Utilize bleeding precautions if thrombolytic given Outcome: Adequate for Discharge Note: Evaluation of progress towards goal: neurological status is stable Problem: Moderate - High Risk Fall Score Description: Gallegos Fall Score of =/> [address] [facility] Assessment Goal: Patient should be free from fall Description: Interventions: 1. [place] to environment 2. Hourly rounds addressing the 4 P's (Pain, Positioning, Possessions, Potty) 3. Clear area of hazards (spills, clutter, electrical cords, unnecessary equipment) 4. Place equipment (bed & TV controls, call light, phone, urinal) within reach 5. Encourage patient to wear glasses and hearing aides as appropriate 6. Maintain bed in lowest position 7. Lock wheels on bed/wheelchair 8. Provide adequate lighting, including night light 9. Assess need for additional bedding, food/fluids, pain med's prior to sleep/routinely 10. Provide gripper slippers or personal non-skid footwear 11. Teach patient and patient passenger relations representative to maintain environment for safety and engage in all aspects of fall prevention program 12. Remind patient to call for help before getting out of bed 13. Initiate bed/chair/exit alarms supportive devices as appropriate, (chair wedge, no-skid floor mat, raised edge mattress, hip protectors) 14. Locate patient bed assignment for optimal visualization 15. Evaluate and identify Safe Patient Handling Equipment needs 16. Provide supervision when out of bed or chair 17. Utilize gait belt as needed to assist with ambulation 18. Place adaptive equipment (cane, walker) within reach 19. Request patient passenger relations representative bring adaptive equipment/mobility aids from home or obtain and provide as needed 20. Consult pharmacy regarding effects of med's affecting mobility, cognition, and alternatives 21. Obtain physician order for PT if risk factors associated with mobility are present 22. Obtain physician order for OT as appropriate 23. Utilize diversional activities 24. Educate patient and patient passenger relations representative how to maintain a safe environment during visitation times (notify nurse prior to leaving bedside) 25. Consider appropriateness of medical or non-medical reception specialist 26. Set up voiding schedule as appropriate (every 2 hours) Outcome: Progressing Note: Evaluation of progress towards goal: pt remains free from falls. Fall precautions in place and family at bedside Problem: Moderate - High Risk Fall Score Description: Gallegos Fall Score of =/> 25 [facility] Goal: Patient should be free from fall Description: Interventions: 1. [place] to environment 2. Hourly rounds addressing the 4 P's (Pain, Positioning, Possessions, Potty) 3. Clear area of hazards (spills, clutter, electrical cords, unnecessary equipment) 4. Place equipment (bed & TV controls, call light, phone, urinal) within reach 5. Encourage patient to wear glasses and hearing aides as appropriate 6. Maintain bed in lowest position 7. Lock wheels on bed/wheelchair 8. Provide adequate lighting, including night light 9. Assess need for additional bedding, food/fluids, pain med's prior to sleep/routinely 10. Provide gripper slippers or personal non-skid footwear 11. Teach patient and patient passenger relations representative to maintain environment for safety and engage in all aspects of fall prevention program 12. Remind patient to call for help before getting out of bed 13. Initiate bed/chair/exit alarms supportive devices as appropriate, (chair wedge, no-skid floor mat, raised edge mattress, hip protectors) 14. Locate patient bed assignment for optimal visualization 15. Evaluate and identify Safe Patient Handling Equipment needs 16. Provide supervision when out of bed or chair 17. Utilize gait belt as needed to assist with ambulation 18. Place adaptive equipment (cane, walker) within reach 19. Request patient passenger relations representative bring adaptive equipment/mobility aids from home or obtain and provide as needed 20. Consult pharmacy regarding effects of med's affecting mobility, cognition, and alternatives 21. Obtain physician order for PT if risk factors associated with mobility are present 22. Obtain physician order for OT as appropriate 23. Utilize diversional activities 24. Educate patient and patient passenger relations representative how to maintain a safe environment during visitation times (notify nurse prior to leaving bedside) 25. Consider appropriateness of medical or non-medical reception specialist 26. Set up voiding schedule as appropriate (every 2 hours) Outcome: Progressing Note: Evaluation of progress towards goal: pt remains free from falls. Fall precautions in place and family at bedside [facility] 07-21-2024 Progress note Formatting of t his note might be different from the original. DISCHARGE PLANNING NOTE Roll Forming Machine Operator spoke with RN KAY Graf and with cupola charger insulation Mylena about current situation regarding appeal decision and DC plan to home with outpatient services. Roll Forming Machine Operator placed a call to the who was in the patient's room due to the questions she had re: the discharge plan. Roll Forming Machine Operator spoke with , Kari on 07/21/24 at 1325. Roll Forming Machine Operator reviewed Eduardo's DC Appeal Determination Notification with the who confirmed that she had received a voicemail from [facility] this morning. Roll Forming Machine Operator explained that Eduardo had agreed with the termination of hospital services after having reviewed the uploaded clinical documents from this hospitalization that engineering writer had sent to them yesterday. expressed verbal understanding to engineering writer of Eduardo's decision. Roll Forming Machine Operator explained that patient's financial liability would begin at Noon on 07/22/24 and offered our care navigation assistance with obtaining transportation to home. had questions about why referrals were not made to fci facilities that family had now chosen, [facility] ([place]) and [facility] ([facility]). Roll Forming Machine Operator explained to the that the patient did not meet the clinical criteria this time for a fci/rehab facility level of care and reminded her that a discussion about this took place this past week/yesterday with the treatment team. explained that she never agreed to take her home and her and her family now want SNF placement. Roll Forming Machine Operator continued to explain to the process of SNF placement including clinical qualifications necessary for acceptance as well as a pre authorization approval from patient's [employer] insurance plan. stated she cannot take the patient home and that he needs rehabilitation for his TBI which is causing him to not remember who she is and stated this was not where he was at prior to bringing him to the hospital. Roll Forming Machine Operator offered supportive listening to the and also offered for her to connect with patient's PCP, Dr. Lopez after she gets her home for resources. Roll Forming Machine Operator also discussed the outpatient TBI clinic appointment that was being discussed yesterday and that information would be included on patient's after visit summary. Roll Forming Machine Operator explained that if was not going to make arrangements to take patient home by noon on 07/22, that patient's financial responsibility of $2640.00 per day would begin. expressed verbal understanding to engineering writer. Roll Forming Machine Operator emailed financial responsibility form with instruction to cupola charger insulationCm (and cce'd today's RN Lesia Felton for awareness) for bedside delivery today. is aware of pending paper copy delivery of this form. - NELLI GLEZ MINE ENVIRONMENTAL ENGINEER CARE NAVIGATION 07/21/24 2:11 PM [facility] 07-21-2024 Progress note Formatting of t his note might be different from the original. DISCHARGE PLANNING NOTE We have received DC Appeal Determination Notification from Daryl and Daryl has agreed with the termination of services. Beneficiary liability begins 07.22.2024 by Noon. Beneficiary and/or beneficiary passenger relations representative were to be notified of determination via phone call. Joanta determination notification rec'd at 1032 and letter rec'd [phone] were received by engineering writer via fax. Roll Forming Machine Operator uploaded documents to document list. Documentation updated. Roll Forming Machine Operator received forwarded voice mail 07/21/24 at 1032 from Eduardo Duran's Immediate Advocacy Department , who had left message on Care Navigation Department voice mail at 1617 on 07/20/24, stating he was representing patient's family who had called [facility] asking 1) why denial reason wasn't given re: transfer to another care facility and 2) if the preferred facility by family was able to accept. Reference Case # given from Nica [id number]. Roll Forming Machine Operator attempted to call Nica back on 07/21/24 at 1214 and engineering writer rec'd auto message from [facility] which stated only live phone calls with [facility] are Tuesday thru Tuesday. Roll Forming Machine Operator left voicemail citing reference case # [id number]. Roll Forming Machine Operator stated reason for return phone call and requested call back from Nica. - NELLI GLEZ MINE ENVIRONMENTAL ENGINEER CARE NAVIGATION 07/21/24 12:37 PM [facility] 07-21-2024 Plan of care note Problem: Safety Goal: Patient will be injury free during hospitalization Description: INTERVENTIONS: 1. Assess patient's risk for falls and implement fall prevention plan of care per policy 2. Provide and maintain a safe environment 3. Proper use of double Identifiers 4. Medication administration using the 5 rights 5. Hand hygiene 6. Specimens are labeled at the bedside 7. Instruct patient/ patient passenger relations representative about use of safety devices 8. Include patient/ patient passenger relations representative in decisions related to safety Outcome: Progressing Note: Evaluation of progress towards goal: Pain will be adequately controlled to allow for rest and adl's Problem: Knowledge Deficit Goal: Patient/patient passenger relations representative demonstrates understanding of disease process, treatment plan, medications, and discharge instructions Description: INTERVENTIONS 1. Complete learning assessment and assess knowledge base 2. Provide teaching at level of understanding 3. Provide teaching via preferred learning method(s) Outcome: Progressing Note: Evaluation of progress towards goal: pt. Will have knowledge of disease process and treatment by discharge Problem: Discharge Planning Goal: Discharge to post-acute care, other facility, or home with appropriate resources Description: Patient's goal is: INTERVENTIONS 1. Conduct assessment to determine patient/family and health care team treatment goals, and need for post-acute services based on payer coverage, community resources, and patient preferences, and barriers to discharge 2. Coordinate with Social work, Care Navigation, and Utilization Review to arrange appropriate level of services according to patient's needs based on patient preference and payer coverage in collaboration with the physician and health care team 3. Address psychosocial, clinical, and financial barriers to discharge as identified in assessment in conjunction with the patient/family and health care team 4. Consult appropriate ancillary services (i.e.. PT/OT/ST, etc) as needed 5. Communicate with and update the patient/family, physician, and health care team regarding progress on the discharge plan 6. Identify discharge learning needs (meds, wound care, etc). 7. Arrange for needed discharge transportation as appropriate Outcome: Progressing Note: Evaluation of progress towards goal: tbd pending facility acceptance Problem: Neurological Deficit Goal: Neurological status is stable or improving Description: Patient's goal is: INTERVENTIONS 1. Complete Neurological assessment as indicated/ordered 2. Initiate measures to prevent increased intracranial pressure 3. Monitor and assess patient's level of consciousness, motor function, sensory function, and level of assistance needed for ADLs 4. Monitor and report changes from baseline 5. Maintain blood pressure and fluid volume within ordered parameters to optimize cerebral perfusion and minimize risk of hemorrhage 6. Monitor labs and diagnostic tests 7. Administer anti-seizure medications as ordered 8. Maintain airway, patient safety and administer oxygen as ordered 9. Monitor patient for seizure activity, document and report duration and description of seizure to LIP 10. If seizure occurs, turn patient to side and suction secretions as needed 11. Reorient patient post seizure 12. Seizure pads on all 4 side rails 13. Instruct patient/family to notify RN of any seizure activity 14. Instruct patient/family to call for assistance with activity based on assessment 15. Utilize bleeding precautions if thrombolytic given Outcome: Progressing Note: Evaluation of progress towards goal: remains stable goal of baseline Problem: Moderate - High Risk Fall Score Description: Gallegos Fall Score of =/> [address] [facility] Assessment Goal: Patient should be free from fall Description: Interventions: 1. [place] to environment 2. Hourly rounds addressing the 4 P's (Pain, Positioning, Possessions, Potty) 3. Clear area of hazards (spills, clutter, electrical cords, unnecessary equipment) 4. Place equipment (bed & TV controls, call light, phone, urinal) within reach 5. Encourage patient to wear glasses and hearing aides as appropriate 6. Maintain bed in lowest position 7. Lock wheels on bed/wheelchair 8. Provide adequate lighting, including night light 9. Assess need for additional bedding, food/fluids, pain med's prior to sleep/routinely 10. Provide gripper slippers or personal non-skid footwear 11. Teach patient and patient passenger relations representative to maintain environment for safety and engage in all aspects of fall prevention program 12. Remind patient to call for help before getting out of bed 13. Initiate bed/chair/exit alarms supportive devices as appropriate, (chair wedge, no-skid floor mat, raised edge mattress, hip protectors) 14. Locate patient bed assignment for optimal visualization 15. Evaluate and identify Safe Patient Handling Equipment needs 16. Provide supervision when out of bed or chair 17. Utilize gait belt as needed to assist with ambulation 18. Place adaptive equipment (cane, walker) within reach 19. Request patient passenger relations representative bring adaptive equipment/mobility aids from home or obtain and provide as needed 20. Consult pharmacy regarding effects of med's affecting mobility, cognition, and alternatives 21. Obtain physician order for PT if risk factors associated with mobility are present 22. Obtain physician order for OT as appropriate 23. Utilize diversional activities 24. Educate patient and patient passenger relations representative how to maintain a safe environment during visitation times (notify nurse prior to leaving bedside) 25. Consider appropriateness of medical or non-medical reception specialist 26. Set up voiding schedule as appropriate (every 2 hours) Outcome: Progressing Note: Evaluation of progress towards goal: fall bundle [id number] 07-21-2024 History of Present illness Narrative Images from the original note were not included. 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 Family is appealing the discharge DVT prophylaxis Lovenox SUBJECTIVE: Patient is sitting comfortably. On room air, not in any acute distress. Ate his breakfast. Ambulatory Review of Systems - General ROS: negative for - chills or fever Respiratory ROS: no cough, shortness of breath, or wheezing Cardiovascular ROS: no chest pain or dyspnea on exertion Gastrointestinal ROS: no abdominal pain, change in bowel habits, or black or bloody stools OBJECTIVE: Exam: BP 98/61 Pulse 74 Temp 36.5 C (97.7 F) (Oral) Resp 18 Wt 83.9 kg (184 lb 15.5 oz) SpO2 97% BMI 30.78 kg/m Intake/Output Summary (Last 24 hours) at 07/21/2024 1354 Last data filed at 07/21/2024 0950 Gross per 24 hour Intake 400 ml Output -- Net 400 ml Wt Readings from Last 3 Encounters: 07/12/24 83.9 kg (184 lb 15.5 oz) 07/10/24 83.9 kg (185 lb) 06/24/24 83.9 kg (185 lb) Physical Exam Constitutional: General: He is not in acute distress. Appearance: Normal appearance. He is well-developed. He is not diaphoretic. HENT: Head: Normocephalic and atraumatic. Mouth/Throat: Pharynx: No oropharyngeal exudate. Eyes: Pupils: Pupils are equal, round, and reactive to light. Neck: Thyroid: No thyromegaly. Cardiovascular: Heart sounds: No murmur heard. Pulmonary: Effort: Pulmonary effort is normal. No respiratory distress. Breath sounds: Normal breath sounds. No wheezing or rales. Abdominal: General: Bowel sounds are normal. There is no distension. Palpations: Abdomen is soft. Tenderness: There is no abdominal tenderness. Musculoskeletal: General: No tenderness. Normal range of motion. Cervical back: Normal range of motion and neck supple. Skin: General: Skin is warm and dry. Findings: No erythema. Neurological: Mental Status: He is alert and oriented to person, place, and time. Cranial Nerves: No cranial nerve deficit. Medications: Scheduled Medications: divalproex sprinkle, 500 mg, oral, Q12H JAREK donepeziL, 5 mg, oral, Nightly doxycycline, 100 mg, oral, BID DULoxetine, 20 mg, oral, Daily enoxaparin (LOVENOX) injection, 40 mg, subcutaneous, Daily melatonin, 10 mg, oral, Nightly nicotine, 1 patch, transdermal, Daily pantoprazole, 40 mg, oral, QAM AC QUEtiapine, 150 mg, oral, Nightly AND QUEtiapine, 50 mg, oral, Daily sodium chloride, 3 mL, intravenous, Q12H JAREK Infusions: PRN medications acetaminophen, 650 mg, Q4H PRN dextrose, 15 g, PRN dextrose 50 % in water (D50W), 25 mL, PRN glucagon (human recombinant), 1 mg, PRN prochlorperazine, 5 mg, Q6H PRN And ketorolac, 15 mg, Q6H PRN And magnesium sulfate, 1,000 mg, PRN ondansetron ODT, 4 mg, Q8H PRN sennosides-docusate sodium, 1 tablet, Q12H PRN sodium chloride, 3 mL, PRN sodium chloride, 25 mL, PRN ziprasidone, 10 mg, Q6H PRN No results found for this or any previous visit (from the past 48 hours). Lab Review Results from last 7 days Lab Units 07/17/24 0834 WBC X10E9/L 4.1 HEMOGLOBIN g/dL 13.9 HEMATOCRIT % 41.8 PLATELETS X10E9/L 180 MCV fL 76* Results from last 7 days Lab Units 07/17/24 0834 SODIUM mmol/L 141 POTASSIUM mmol/L 4.3 CHLORIDE mmol/L 104 CO2 mmol/L 33* BUN mg/dL 20 CREATININE mg/dL 0.95 CALCIUM mg/dL 8.8 ANION GAP mmol/L 4* Results from last 7 days Lab Units 07/17/24 0834 GLUCOSE mg/dL 97 Results from last 7 days Lab Units 07/17/24 0834 MAGNESIUM mg/dL 2.2 CALCIUM mg/dL 8.8 Microbiology Results No results found for the last 168 hours. No results found. This note was created with the assistance of a speech-recognition program. Although the intention is to generate a document that actually reflects the content of the visit, no guarantees can be provided that every mistake has been identified and corrected by editing. Electronically signed by: SUZANNE SHIPLEY MD, VLADIMIR, FACP 07/21/2024 1:54 PM Preferred contact method: #1. Epic chat #2. [facility] team pager Available from 7 am to 7 pm Images from the original note were not included. [facility] Neurology General Neurology Consultation Progress Note Consult Neurology Service: [phone] Primary Team: Meng Hospitalist Chief Concern and Reason for Consultation: cognitive decline Interval History: Noé Jeffery is a 59 y.o. year old male for whom Neurology was consulted for chief concern of cognitive decline. He has history of hyperlipidemia, complex sleep apnea, GERD, type 2 diabetes, major neurocognitive disorder with biomarkers confirmed early onset Alzheimer's disease (established at [facility] in October 2022), and epilepsy from the age of 1 to 5 per family report with complete remission and off epileptic medications. Patient's MRI in 2021 showed severe generalized volume loss and hippocampal volumes at the 1st percentile of his age group. Patient was initially consulted on 07/06/2024 due to altered mental status. He had a fall, resulting in TBI in May 2024. He has been forgetful with a rapid cognitive decline after the fall. During the initial neurology evaluation, the patient underwent MRI brain, which showed a tiny colloid cyst at the anterior aspect of the third ventricle, but was otherwise unremarkable. He also underwent a baseline EEG, which showed generalized background slowing in favor of mild to moderate diffuse encephalopathy. Patient also had an LP on 07/10 with the following results: RBC 48, WBC 1, protein 45, glucose 66, negative meningitis panel, normal IgG index profile, negative autoimmune encephalopathy panel, negative lyme, negative culture, negative VDRL, and negative cytology. Neurology signed off with a diagnosis of diffuse axonal injury in addition to the pre-existing diagnosis of early-onset dementia with recommendations of outpatient Neurology follow up, as well as following up with TBI clinic for cognitive rehabilitation. Neurology is on board per family request again due to ongoing disorientation and forgetfulness. Overnight, no significant events happened. Today, the patient was awake and alert, but not oriented to time. He couldn't remember her 's name and did not recognize her and referred to her as his friend. He could recognize his sister, though. Family mentioned myoclonic jerks before and during the admission. Apparently, the fall episode in May was following these jerking movement attacks. Patient mentioned headache. No focal weakness, tingling, or numbness noted. Pertinent past Medical History/Family/Social History reviewed as per initial HPI. Pertinent Systems reviewed as per initial HPI, and negative as below except for mentioned above. Medications: Unknown Physical Exam Vital Signs: Vitals: 07/20/24 1219 BP: 119/68 Pulse: 74 Resp: 14 Temp: 36.4 C (97.5 F) SpO2: 99% General: Normotensive, in no acute distress. Cardiac Examination: Heart: RRR, no murmurs, no rubs, no gallops. Carotids: No bruit Peripheral Vascular System: Peripheral pulses intact Neurological Examination: Higher Mental Function: Orientated to time, place, person Attention span and concentration intact Deficit in Recent and Remote Memory. Could not recognize his (referring to her as his friend) and could not remember her name. Called his sister by her first name (usually uses sister's middle name to call her). Language intact Fund of knowledge appropriate Ophthalmological Examination: Clear conjunctiva, no cataracts. Cranial Nerve Examination: II: Normal tracking, no evidence of hemianopia or other visual field defect. III, IV, & : EOM intact, no ptosis, no nystagmus seen. Pupils are equal and reactive to light. V: Facial sensation is intact. VII: no facial asymmetry, facial movement intact. VIII: hearing is normal. IX-X: Palate elevates in the midline. XI: Normal trapezius strength and/or movement. XII: Tongue movement is normal, position is midline and no fasciculations are observed. Tongue strength intact. Motor: Power -- No focal motor weakness noted in BL upper or lower extremities. Bulk and muscle tone are intact in BL upper and lower extremities. No rigidity or spasticity. No atrophy or abnormal movements noted. No dystonia, or motor tics. No tremor noted. Deep Tendon Reflexes: Right, Left: Biceps 2, 2 Brachioradialis 2, 2 Patellae 2, 2 Achilles 2, 2 Plantar response was flexor bilaterally. No clonus or other pathological reflexes elicited. Sensory examination: Intact to light touch, pin-prick, vibration, and proprioception throughout. Cerebellar: Able to do [id number] bilaterally; normal coordination Gait and station: Deferred. Pertinent Labs: Results from last 7 days Lab Units 07/17/24 0834 WBC X10E9/L 4.1 HEMOGLOBIN g/dL 13.9 HEMATOCRIT % 41.8 PLATELETS X10E9/L 180 Results from last 7 days Lab Units 07/17/24 0834 SODIUM mmol/L 141 POTASSIUM mmol/L 4.3 CHLORIDE mmol/L 104 CO2 mmol/L 33* BUN mg/dL 20 CREATININE mg/dL 0.95 CALCIUM mg/dL 8.8 MAGNESIUM mg/dL 2.2 Invalid input(s): BILITOT , LABBILIRUBIN , TOTALBILIRUB , BILIRUB , BILIRUBIND Results from last 7 days Lab Units 07/17/24 0834 GLUCOSE mg/dL 97 Lab Results Component Value Date HGBA1C 5.9 05/10/2016 Imaging: MRI brain with and without contrast (07/08/2024): The high attenuation focus shown on brain CT from July 07 at the anterior aspect of the third ventricle 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 Extensive brain atrophy and ischemic white matter disease similar to the prior study. Other Testing: - Routine EEG (07/08/2024): generalized background slowing in favor of mild to moderate diffuse encephalopathy. - Lumbar puncture (07/10/2024): RBC 48, WBC 1, protein 45, glucose 66, negative meningitis panel, normal IgG index profile, negative autoimmune encephalopathy panel, negative lyme, negative culture, negative VDRL, and negative cytology. Assessment: Noé Jeffery is a 59 y.o. year old male who is admitted due to altered mental status and rapid cognitive decline. He has history of hyperlipidemia, complex sleep apnea, GERD, type 2 diabetes, major neurocognitive disorder with biomarkers confirmed early onset Alzheimer's disease (established at [facility] in October 2022), and epilepsy from the age of 1 to 5 per family report with complete remission and off epileptic medications. Patient's MRI in 2021 showed severe generalized volume loss and hippocampal volumes at the 1st percentile of his age group. He underwent full neurologic workups. MRI brain showed a tiny colloid cyst at the anterior aspect of the third ventricle. Baseline EEG showed mild to moderate encephalopathy. LP results were unremarkable. Patient's family mentioned myoclonic jerking movements, which were better on Depakote. 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 Myoclonic jerking movements responsive to Depakote, need to rule out myoclonic seizure. 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 - Recommend outpatient workup for neurosurgery for the colloid cyst. - patient okay for outpatient EEG monitoring for concern of seizures - Continue Depakote 500 mg BD and melatonin 10 mg nightly - Continue Seroquel. - Migraine cocktail as needed for headache (Tylenol, Toradol, Compazine, and magnesium sulfate). Avoid Benadryl due to the previous behavioral side effects. - Recommend frequent orientation, avoiding narcotics and sedating medications, patient should try to stay awake during daytime, open blinds during the day time, and minimize sleep interruption at night. Keep the room quiet and restful. If patient wears prescription glasses, wear glasses when applicable. It may help to play soft, relaxing music. Get lots of rest, at least 8 hours each night. Use a nightlight to help get around safely at night. - no further recommendations from Neurology. Patient is stable for discharge from our standpoint Jennifer Medel MD PGY-2 IM Edited by Kelvin Johnson MD PGY-3 Neurology Staffed with: Dr. Sofia This patient is being followed by the Neurology Resident service. Contact attending directly during these hours: Tuesday to 7:30-8:30 A.M. to Tuesday 12-1:00 p.m. Primary Neurology service: [phone] Consult neurology service: [phone] Resident Stroke Service: [phone] If the patient belongs to the Stroke [facility] service please contact the Stroke [facility] directly. Cosigned by Kelley Sofia MD at 07/21/2024 9:42 AM EST Associated attestation - Kelley Sofia MD - 07/21/2024 9:42 AM EST I have discussed the case of Noé Jeffery, including pertinent history and exam findings with the resident. I have seen and examined the patient and the jimenez elements of the encounter have been performed by me. I agree with the assessment, plan and orders as documented by the resident with changes made to the note as needed. Please refer to my attested note. Kelley Sofia MD Neurology This note is created with the assistance of a speech-recognition program. While intending to generate a document that actually reflects the content of the visit, the document can still have some errors including those of syntax and sound a- like substitutions which may escape proofreading. In such instances, actual meaning can be extrapolated by contextual derivation. Images from the original note were not included. [facility] 07/19/2024 Patient Name: Noé Jeffery : 1965 Code status: Problem List: Principal Problem: Dementia with behavioral disturbance ([facility] Active Problems: Altered mental status Status post colostomy, follow-up exam ([facility]) Consulting Providers Provider Service Specialty Mina Franks MD Psychiatry Psychiatry Jessica Johnson MD -- Neurology Sonya Astudillo MD Z Physical Medicine and Rehabilitation Physical Medicine & Rehabilitation Chief complaint-behavioral issues 59-year-old male patient with Confirmed early onset Alzheimer's disease established in [facility] October 2022, patient had fall June 09, 2025 after which he started having behavioral changes and sharp decline in his cognitive abilities. He has seen in conjunction with General Neurology and Psychiatry. Assessment and Plan: Acute decline in mental status after a fall - traumatic brain injury, diffuse axonal injury in a patient with pre-existing early-onset Alzheimer's disease. Agitation and psychosis- resolved. Currently not in any restraints. -MRI suggestive of diffuse axonal injury. Lumbar puncture negative for meningitis, Lyme VDRL, HIV. Psychiatry recommended Depakote Sprinkles. Does not qualify for inpatient psych admission. Continue Cymbalta, melatonin nightly, Seroquel. Off of tele sitter, off of restraints. EEG did not show any epileptic focus. Neurology recommended TBI Clinic for cognitive rehabilitation. Currently signed off. Reconsulted Neurology per family request. I also spoke with [facility] neurology 's office. They said that they are independent office and they do not have resources for transfer or admission to [facility]. They also will not be able to place referral to TBI rehab center, not followed the patient for more than a year now. Colloid cyst stable per MRI report History of perforated sigmoid colon s/p surgical repair Discharge Planning: TBI rehab Placement issues. Medically stable for discharge DVT prophylaxis- Lovenox SUBJECTIVE: Patient alert and oriented to self. Calm and sitting comfortably. Review of Systems - General ROS: negative for - chills or fever Respiratory ROS: no cough, shortness of breath, or wheezing Cardiovascular ROS: no chest pain or dyspnea on exertion Gastrointestinal ROS: no abdominal pain, change in bowel habits, or black or bloody stools OBJECTIVE: Exam: BP 97/70 Pulse 83 Temp 36.6 C (97.8 F) (Oral) Resp 16 Wt 83.9 kg (184 lb 15.5 oz) SpO2 97% BMI 30.78 kg/m No intake or output data in the 24 hours ending 07/19/24 1340 Wt Readings from Last 3 Encounters: 07/12/24 83.9 kg (184 lb 15.5 oz) 07/10/24 83.9 kg (185 lb) 06/24/24 83.9 kg (185 lb) Physical Exam Constitutional: General: He is not in acute distress. Appearance: Normal appearance. He is well-developed. He is not diaphoretic. HENT: Head: Normocephalic and atraumatic. Mouth/Throat: Pharynx: No oropharyngeal exudate. Eyes: Pupils: Pupils are equal, round, and reactive to light. Neck: Thyroid: No thyromegaly. Cardiovascular: Rate and Rhythm: Normal rate and regular rhythm. Heart sounds: No murmur heard. Pulmonary: Effort: Pulmonary effort is normal. No respiratory distress. Breath sounds: Normal breath sounds. No wheezing or rales. Abdominal: General: Bowel sounds are normal. There is no distension. Palpations: Abdomen is soft. Tenderness: There is no abdominal tenderness. Musculoskeletal: General: No tenderness. Normal range of motion. Cervical back: Normal range of motion and neck supple. Skin: General: Skin is warm and dry. Findings: No erythema. Neurological: Mental Status: Mental status is at baseline. He is disoriented. Cranial Nerves: No cranial nerve deficit. Psychiatric: Behavior: Behavior normal. Medications: Scheduled Medications: divalproex sprinkle, 500 mg, oral, Q12H JAREK donepeziL, 5 mg, oral, Nightly doxycycline, 100 mg, oral, BID DULoxetine, 20 mg, oral, Daily enoxaparin (LOVENOX) injection, 40 mg, subcutaneous, Daily melatonin, 5 mg, oral, Nightly nicotine, 1 patch, transdermal, Daily pantoprazole, 40 mg, oral, QAM AC QUEtiapine, 150 mg, oral, Nightly AND QUEtiapine, 50 mg, oral, Daily sodium chloride, 3 mL, intravenous, Q12H JAREK Infusions: PRN medications acetaminophen, 650 mg, Q4H PRN dextrose, 15 g, PRN dextrose 50 % in water (D50W), 25 mL, PRN glucagon (human recombinant), 1 mg, PRN ondansetron ODT, 4 mg, Q8H PRN sennosides-docusate sodium, 1 tablet, Q12H PRN sodium chloride, 3 mL, PRN sodium chloride, 25 mL, PRN ziprasidone, 10 mg, Q6H PRN No results found for this or any previous visit (from the past 48 hours). Lab Review Results from last 7 days Lab Units 07/17/24 0834 WBC X10E9/L 4.1 HEMOGLOBIN g/dL 13.9 HEMATOCRIT % 41.8 PLATELETS X10E9/L 180 MCV fL 76* Results from last 7 days Lab Units 07/17/24 0834 SODIUM mmol/L 141 POTASSIUM mmol/L 4.3 CHLORIDE mmol/L 104 CO2 mmol/L 33* BUN mg/dL 20 CREATININE mg/dL 0.95 CALCIUM mg/dL 8.8 ANION GAP mmol/L 4* Results from last 7 days Lab Units 07/17/24 0834 GLUCOSE mg/dL 97 Results from last 7 days Lab Units 07/17/24 0834 MAGNESIUM mg/dL 2.2 CALCIUM mg/dL 8.8 Microbiology Results No results found for the last 168 hours. No results found. This note was created with the assistance of a speech-recognition program. Although the intention is to generate a document that actually reflects the content of the visit, no guarantees can be provided that every mistake has been identified and corrected by editing. Electronically signed by: SUZANNE SHIPLEY MD, VLADIMIR, FACP 07/19/2024 1:40 PM Preferred contact method: #1. Epic chat #2. [facility] team pager Available from 7 am to 7 pm Images from the original note were not included. [facility]ESS NOTE 07/18/2024 Patient Name: Noé Jeffery : 1965 Code status: Problem List: Principal Problem: Dementia with behavioral disturbance ([facility]) Active Problems: Altered mental status Status post colostomy, follow-up exam ([facility]) Consulting Providers Provider Service Specialty Mina Franks MD Psychiatry Psychiatry Jessica Johnson MD -- Neurology Sonya Astudillo MD Z Physical Medicine and Rehabilitation Physical Medicine & Rehabilitation Chief complaint-behavioral issues 59-year-old male patient with Confirmed early onset Alzheimer's disease established in [facility] October 2022, patient had fall June 09, 2025 after which he started having behavioral changes and sharp decline in his cognitive abilities. He has seen in conjunction with General Neurology and Psychiatry. Assessment and Plan: Acute decline in mental status after a fall - traumatic brain injury, diffuse axonal injury in a patient with pre-existing early-onset Alzheimer's disease. Severe agitation and psychosis- resolved. Currently not in any restraints. -MRI suggestive of diffuse axonal injury. Lumbar puncture negative for meningitis, Lyme VDRL, HIV. Psychiatry recommended Depakote Sprinkles. Does not qualify for inpatient psych admission. Continue Cymbalta, melatonin nightly, Seroquel. Off of tele sitter, off of restraints. EEG did not show any epileptic focus. Neurology recommended TBI Clinic for cognitive rehabilitation. Currently signed off. Colloid cyst stable per MRI report History of perforated sigmoid colon s/p surgical repair Discharge Planning: TBI rehab Placement issues. Medically stable for discharge DVT prophylaxis- Lovenox SUBJECTIVE: Patient is oriented to self. Discussed with sister at bedside. Encouraged ambulation. Review of Systems - General ROS: negative for - chills or fever Respiratory ROS: no cough, shortness of breath, or wheezing Cardiovascular ROS: no chest pain or dyspnea on exertion Gastrointestinal ROS: no abdominal pain, change in bowel habits, or black or bloody stools OBJECTIVE: Exam: BP 111/67 Pulse 78 Temp 36.5 C (97.7 F) (Oral) Resp 20 Wt 83.9 kg (184 lb 15.5 oz) SpO2 97% BMI 30.78 kg/m No intake or output data in the 24 hours ending 07/18/24 1539 Wt Readings from Last 3 Encounters: 07/12/24 83.9 kg (184 lb 15.5 oz) 07/10/24 83.9 kg (185 lb) 06/24/24 83.9 kg (185 lb) Physical Exam Constitutional: General: He is not in acute distress. Appearance: Normal appearance. He is well-developed. He is not diaphoretic. HENT: Head: Normocephalic and atraumatic. Mouth/Throat: Pharynx: No oropharyngeal exudate. Eyes: Pupils: Pupils are equal, round, and reactive to light. Neck: Thyroid: No thyromegaly. Cardiovascular: Rate and Rhythm: Normal rate and regular rhythm. Heart sounds: No murmur heard. Pulmonary: Effort: Pulmonary effort is normal. No respiratory distress. Breath sounds: Normal breath sounds. No wheezing or rales. Abdominal: General: Bowel sounds are normal. There is no distension. Palpations: Abdomen is soft. Tenderness: There is no abdominal tenderness. Musculoskeletal: General: No tenderness. Normal range of motion. Cervical back: Normal range of motion and neck supple. Skin: General: Skin is warm and dry. Findings: No erythema. Neurological: Mental Status: Mental status is at baseline. He is disoriented. Cranial Nerves: No cranial nerve deficit. Psychiatric: Behavior: Behavior normal. Medications: Scheduled Medications: divalproex sprinkle, 500 mg, oral, Q12H JAREK donepeziL, 5 mg, oral, Nightly doxycycline, 100 mg, oral, BID DULoxetine, 20 mg, oral, Daily enoxaparin (LOVENOX) injection, 40 mg, subcutaneous, Daily melatonin, 5 mg, oral, Nightly nicotine, 1 patch, transdermal, Daily pantoprazole, 40 mg, oral, QAM AC QUEtiapine, 150 mg, oral, Nightly AND QUEtiapine, 50 mg, oral, Daily sodium chloride, 3 mL, intravenous, Q12H JAREK Infusions: PRN medications acetaminophen, 650 mg, Q4H PRN dextrose, 15 g, PRN dextrose 50 % in water (D50W), 25 mL, PRN glucagon (human recombinant), 1 mg, PRN ondansetron ODT, 4 mg, Q8H PRN sennosides-docusate sodium, 1 tablet, Q12H PRN sodium chloride, 3 mL, PRN sodium chloride, 25 mL, PRN ziprasidone, 10 mg, Q6H PRN Recent Results (from the past 48 hours) CBC auto differential Collection Time: 07/17/24 8:34 AM Result Value Ref Range White Blood Cells 4.1 4.0 - 11.0 X10E9/L RBC count 5.54 4.10 - 5.70 X10E12/L Hemoglobin 13.9 13.0 - 17.0 g/dL Hematocrit 41.8 39 - 49 % MCV 76 (L) 80 - 100 fL MCH 25.1 (L) 27 - 34 pg MCHC 33.2 32 - 36 g/dL RDW 15.8 (H) 11.5 - 15.0 % Platelets 180 150 - 450 X10E9/L MPV 7.7 7 - 12 fL % neutrophils 59.6 % % lymphocytes 29.7 % % monocytes 8.2 % % eosinophils 1.9 % % Basophils 0.6 % Neutrophils Absolute (A) 2.5 1.5 - 6.6 X10E9/L Lymphocytes Absolute 1.2 1.0 - 3.5 X10E9/L Monocytes Absolute 0.3 0 - 0.9 X10E9/L Eosinophils Absolute 0.1 0.0 - 0.4 X10E9/L Basophils Absolute 0.0 0.0 - 0.2 X10E9/L Basic Metabolic Panel Collection Time: 07/17/24 8:34 AM Result Value Ref Range Sodium 141 134 - 146 mmol/L Potassium, Bld 4.3 3.5 - 5.0 mmol/L Chloride 104 98 - 109 mmol/L CO2 33 (H) 22 - 32 mmol/L Anion gap 4 (L) 5 - 15 mmol/L BUN 20 5 - 23 mg/dL Creatinine 0.95 0.60 - 1.30 mg/dL Glucose 97 65 - 99 mg/dL Calcium 8.8 8.5 - 10.5 mg/dL eGFR (CKD-EPI)non-race dependent >90 >59 ml/min/1.73sq.m Magnesium Collection Time: 07/17/24 8:34 AM Result Value Ref Range Magnesium 2.2 1.8 - 2.6 mg/dL Lab Review Results from last 7 days Lab Units 07/17/24 0834 WBC X10E9/L 4.1 HEMOGLOBIN g/dL 13.9 HEMATOCRIT % 41.8 PLATELETS X10E9/L 180 MCV fL 76* Results from last 7 days Lab Units 07/17/24 0834 SODIUM mmol/L 141 POTASSIUM mmol/L 4.3 CHLORIDE mmol/L 104 CO2 mmol/L 33* BUN mg/dL 20 CREATININE mg/dL 0.95 CALCIUM mg/dL 8.8 ANION GAP mmol/L 4* Results from last 7 days Lab Units 07/17/24 0834 GLUCOSE mg/dL 97 Results from last 7 days Lab Units 07/17/24 0834 MAGNESIUM mg/dL 2.2 CALCIUM mg/dL 8.8 Microbiology Results No results found for the last 168 hours. No results found. This note was created with the assistance of a speech-recognition program. Although the intention is to generate a document that actually reflects the content of the visit, no guarantees can be provided that every mistake has been identified and corrected by editing. Electronically signed by: SUZANNE SHIPLEY MD, VLADIMIR, FACP 07/18/2024 3:39 PM Preferred contact method: #1. Epic chat #2. PPH team pager Available from 7 am to 7 pm Attending Physician: Suzanne Shipley MD Date of Admission: 07/06/2024 Date of service 07/17/2024 Subjective: CC Seen examined today. Patient working with therapies. Going to [facility]. No new weakness. Objective: Last Filed Vitals: Visit Vitals BP 101/65 Pulse 87 Temp 36.3 C (97.4 F) (Oral) Resp 19 Wt 83.9 kg (184 lb 15.5 oz) SpO2 98% BMI 30.78 kg/m Physical Examination: GEN: NAD, standing working with therapies PSYCH: flat affect EYES: PER NEURO: alert and interactive HENT: NC, AT no jaundice, no pallor. NECK: trachea is midline Pulmonary/Chest: Chest was without accessory muscle use Abdomen: soft, non-tender, non-distended EXT: No edema, cyanosis. MSK: Walking with therapies Labs: WBC 4.1 hemoglobin 13.9 Assessment and Plan: Patient Active Problem List Diagnosis Laceration of left ulnar artery Dementia with behavioral disturbance ([facility] Altered mental status Status post colostomy, follow-up exam ([facility]) PLAN Cont PT/OT - would recommend inpatient rehabilitation DVT prophylaxis - heparin 5000 units t.i.d. Agitation Seroquel, Depakote Pain management - Tylenol p.r.n. Dementia Aricept Monitor bowel/bladder/skin Per your medical management PQRS measures: I attest and have documented/reviewed all medications in patients chart Electronically signed by Silvestre RODRIGEZR. 07/17/2024 NUTRITION ADULT FOLLOW UP NUTRITION ASSESSMENT: Patient History: Brief Clinical Summary: Pt transferred and direct admitted to [facility] as a transfer from [facility] for neurological evaluation 2/2 aggressive behavior and hostility. PMH: early-onset dementia, T2DM, GERD, and perforated colon. Biochemical Data, Medical Tests, and Procedures: 07/16, restraints: pt now out of restraints with groundman/lineman at side Labs: Results from last 3 days Lab Units 07/17/24 0834 SODIUM mmol/L 141 POTASSIUM mmol/L 4.3 CHLORIDE mmol/L 104 CO2 mmol/L 33* BUN mg/dL 20 CREATININE mg/dL 0.95 CALCIUM mg/dL 8.8 Results from last 7 days Lab Units 07/17/24 0834 GLUCOSE mg/dL 97 Results from last 3 days Lab Units 07/17/24 0834 WBC X10E9/L 4.1 HEMOGLOBIN g/dL 13.9 HEMATOCRIT % 41.8 PLATELETS X10E9/L 180 MCV fL 76* Results from last 3 days Lab Units 07/17/24 0834 MAGNESIUM mg/dL 2.2 No data from last 3 days. No data from last 3 days. Lab Results Component Value Date HGBA1C 5.9 05/10/2016 No results found for: IRON , TIBC , FERRITIN No results found for: IRONSAT Lab Results Component Value Date CHOL 262 (H) 05/10/2016 Lab Results Component Value Date CHDL 5.7 (H) 05/10/2016 Lab Results Component Value Date HDL 46 05/10/2016 Lab Results Component Value Date LDLCALC 184 (H) 05/10/2016 Lab Results Component Value Date TRIG 157 (H) 05/10/2016 Lab Results Component Value Date VERYLOWLIP 31 (H) 05/10/2016 Lab Results Component Value Date HPITGZPY01 526 07/08/2024 Lab Results Component Value Date FOLATE 10.2 07/08/2024 No results found for: VITD25 Comments (labs): Reviewed Medications/ Parenteral: Protonix, nacl flush Current Facility-Administered Medications Medication Dose Route Frequency Provider Last Rate Last Admin acetaminophen (TYLENOL) tablet 650 mg 650 mg oral Q4H PRN Nichol Heath MD 650 mg at 07/13/24 1336 dextrose (GLUTOSE) 40 % gel 15 g 15 g oral PRN Nichol Heath MD dextrose 50 % in water (D50W) 50% solution 25 mL 25 mL intravenous PRN Nichol Heath MD divalproex sprinkle (DEPAKOTE SPRINKLE) capsule 500 mg 500 mg oral Q12H REPLACED BY [facility] Nichol Heath MD 500 mg at 07/17/24 0918 donepeziL (ARICEPT) tablet 5 mg 5 mg oral Nightly Nichol Heath MD 5 mg at 07/16/24 213 doxycycline (VIBRAMYCIN) capsule 100 mg 100 mg oral BID Suzanne Shipley MD 100 mg at 07/17/24 1104 DULoxetine (CYMBALTA) DR capsule 20 mg 20 mg oral Daily Nichol Heath MD 20 mg at 07/17/24 0919 glucagon HCL injection 1 mg 1 mg intramuscular PRN Nichol Heath MD heparin (porcine) injection 5,000 Units 5,000 Units subcutaneous Q8H REPLACED BY [facility] Nichol Heath MD 5,000 Units at 07/17/24 0609 melatonin (CIRCADIN) tablet 5 mg 5 mg oral Nightly Cecile Henry MD 5 mg at 07/16/24 2138 nicotine (NICODERM CQ) 21 mg/24 hr 1 patch 1 patch transdermal Daily Nichol Heath MD ondansetron ODT (ZOFRAN ODT) disintegrating tablet 4 mg 4 mg buccal Q8H PRN Nichol Heath MD pantoprazole (PROTONIX) EC tablet 40 mg 40 mg oral QAM AC Nichol Heath MD 40 mg at 07/17/24 0609 QUEtiapine (SEROquel) tablet 150 mg 150 mg oral Nightly Nichol Heath MD 150 mg at 07/16/242136 And QUEtiapine (SEROquel) tablet 50 mg 50 mg oral Daily Nichol Heath MD 50 mg at 07/17/24918 sennosides-docusate sodium (SENOKOT-S) 8.6-50 mg 1 tablet 1 tablet oral Q12H PRN Nichol Heath MD sodium chloride 0.9 % flush 3 mL 3 mL intravenous PRN Nichol Heath MD sodium chloride 0.9 % flush 3 mL 3 mL intravenous Q12H JAREK Nichol Heath MD 3 mL at 07/14/242113 sodium chloride 0.9 % flush bag 25 mL intravenous PRN Nichol Heath MD ziprasidone (GEODON) injection 10 mg 10 mg intramuscular Q6H PRN Lonnie Baker MD 10 mg at 07/12/24 0026 Nutrition Focused Physical Findings +wound incision to the back, +wound soft tissue necrosis of the left anterior elbow Skin (per nursing flow sheets): Skin Color: [place]; Pale (07/17/24904) Skin Temp: Warm; Dry (07/17/24904) Wound (per nursing flow sheets): Wound 07/11/24 Incision Back N/A-Site Assessment: Unable to assess (07/11/242109) Wound 07/16/24 Soft Tissue Necrosis Elbow Anterior;Left-Site Assessment: Red; Painful; Ecchymosis; Edema; Purple (07/17/24904) Gastrointestinal (per nursing flow sheets): Last BM Date: 07/17/24 (07/17/24904) Edema (per nursing flow sheets): Intake/ Output Last 24 hrs: Intake/Output Summary (Last 24 hours) at 07/17/2024 1144 Last data filed at 07/16/2024 1734 Gross per 24 hour Intake 480 ml Output -- Net 480 ml Food/Nutrition Related History: Diet/ Nutrition Order Review: Dietary Orders (From admission, onward) Start Ordered 07/10/24 1145 Adult diet Regular Texture Diet effective now Question: Diet Type: Answer: Regular Texture 07/10/24 1144 07/09/24 1358 Adult nutrition supplements Continuous Comments: Glucerna (3x/day) Question Answer Comment Diet Type or Consistency: Regular Texture Select Supplement: Diabetic Supplement Frequency: TID 07/09/24 1358 Diet Intakes: Percent Meals Eaten (%): 100 (07/16/24 1734) Per family, pt is now eating 100% of food. Pt is unsure how much he is eating 2/2 TBI with poor memory. Oral Supplemental Intake/ Acceptance: Pt is drinking Glucerna per family. Nutrition Knowledge/Beliefs/Attitudes: Family is helping to feed patient and are very supportive of him. Anthropometrics: Last 3 Weight Readings 07/12/24 0700 Weight: 83.9 kg (184 lb 15.5 oz) Admit Weight: 83.9 kg (unknown, 06/24) [place] Body Weight: Unknown as no wt on file Weight Changes: No wt since admission 2/2 pt aggression Admit Body Mass Index: Same as current BMI Current Body Mass Index: Body mass index is 30.78 kg/m . Comparative Standards: Estimated Energy Needs: 7396-4841 kcals daily. Method and weight used: 25-32 kcal/kg IBW Estimated Protein Needs: 74-124 grams daily. Method and weight used: 1.2-2g protein/kg IBW Estimated Fluid Needs: 3500-8375 ml daily. Method weight used: 1 ml/kcal Comments: floor needs Malnutrition Status: Malnutrition Present: No NUTRITION DIAGNOSIS: Intake Diagnosis: Predicted suboptimal nutrient intake (NI 5.11.1)--ongoing NUTRITION INTERVENTIONS: Meals and Snacks: Continue per [employer] and medical team recommendations Supplements: Will add on supplements based on RN screen. Can d/c if pt eating well consistently in the future. Add on Glucerna, TID to provide 220 kcal and 10 g protein per serving. RECOMMENDATIONS: Document I/O's, Document PO intake, Document Supplement Intake, Obtain Daily Weight's GOAL(S): Meet 100% estimated nutrition needs NUTRITION MONITORING AND EVALUATION: Weight, labs, PO intake, GI function, I/Os, POC. Merary Hunt, MS, RD, LD, CDN Clinical Dietitian Images from the original note were not included. [facility]GRESS NOTE 07/17/2024 Patient Name: Noé Jeffery : 1965 Code status: Problem List: Principal Problem: Dementia with behavioral disturbance ([facility] Active Problems: Altered mental status Status post colostomy, follow-up exam ([facility]) Consulting Providers Provider Service Specialty Mina Franks MD Psychiatry Psychiatry Jessica Johnson MD -- Neurology Sonya Astudillo MD Z Physical Medicine and Rehabilitation Physical Medicine & Rehabilitation Chief complaint-behavioral issues 59-year-old male patient with Confirmed early onset Alzheimer's disease established in [facility] October 2022, patient had fall June 09, 2025 after which he started having behavioral changes and sharp decline in his cognitive abilities. He has seen in conjunction with General Neurology and Psychiatry. Assessment and Plan: Acute decline in mental status after a fall - traumatic brain injury, diffuse axonal injury in a patient with pre-existing early-onset Alzheimer's disease. Severe agitation and psychosis -MRI suggestive of diffuse axonal injury. Lumbar puncture negative for meningitis, Lyme VDRL, HIV. Psychiatry recommended Depakote Sprinkles. Does not qualify for inpatient psych admission. Continue Cymbalta, melatonin nightly, Seroquel. Off of tele sitter, off of restraints. EEG did not show any epileptic focus. Neurology recommended TBI Clinic for cognitive rehabilitation. Currently signed off. Colloid cyst stable per MRI report History of perforated sigmoid colon s/p surgical repair Discharge Planning: TBI rehab Placement issues. Medically stable for discharge DVT prophylaxis- Lovenox SUBJECTIVE: Patient is alert, oriented to self. Unable to answer any of the other orientation questions. Was able to tell that he ate well. Spoke with at bedside Review of Systems - General ROS: negative for - chills or fever Respiratory ROS: no cough, shortness of breath, or wheezing Cardiovascular ROS: no chest pain or dyspnea on exertion Gastrointestinal ROS: no abdominal pain, change in bowel habits, or black or bloody stools OBJECTIVE: Exam: BP 121/75 Pulse 73 Temp 36.7 C (98 F) (Oral) Resp 16 Wt 83.9 kg (184 lb 15.5 oz) SpO2 98% BMI 30.78 kg/m Intake/Output Summary (Last 24 hours) at 07/17/2024 1624 Last data filed at 07/16/2024 1734 Gross per 24 hour Intake 240 ml Output -- Net 240 ml Wt Readings from Last 3 Encounters: 07/12/24 83.9 kg (184 lb 15.5 oz) 07/10/24 83.9 kg (185 lb) 06/24/24 83.9 kg (185 lb) Physical Exam Constitutional: General: He is not in acute distress. Appearance: Normal appearance. He is well-developed. He is not diaphoretic. HENT: Head: Normocephalic and atraumatic. Mouth/Throat: Pharynx: No oropharyngeal exudate. Eyes: Pupils: Pupils are equal, round, and reactive to light. Neck: Thyroid: No thyromegaly. Cardiovascular: Heart sounds: No murmur heard. Pulmonary: Effort: Pulmonary effort is normal. No respiratory distress. Breath sounds: Normal breath sounds. No wheezing or rales. Abdominal: General: Bowel sounds are normal. There is no distension. Palpations: Abdomen is soft. Tenderness: There is no abdominal tenderness. Musculoskeletal: General: No tenderness. Normal range of motion. Cervical back: Normal range of motion and neck supple. Skin: General: Skin is warm and dry. Findings: No erythema. Neurological: Mental Status: Mental status is at baseline. He is disoriented. Cranial Nerves: No cranial nerve deficit. Medications: Scheduled Medications: divalproex sprinkle, 500 mg, oral, Q12H JAREK donepeziL, 5 mg, oral, Nightly doxycycline, 100 mg, oral, BID DULoxetine, 20 mg, oral, Daily heparin (porcine), 5,000 Units, subcutaneous, Q8H JAREK melatonin, 5 mg, oral, Nightly nicotine, 1 patch, transdermal, Daily pantoprazole, 40 mg, oral, QAM AC QUEtiapine, 150 mg, oral, Nightly AND QUEtiapine, 50 mg, oral, Daily sodium chloride, 3 mL, intravenous, Q12H JAREK Infusions: PRN medications acetaminophen, 650 mg, Q4H PRN dextrose, 15 g, PRN dextrose 50 % in water (D50W), 25 mL, PRN glucagon (human recombinant), 1 mg, PRN ondansetron ODT, 4 mg, Q8H PRN sennosides-docusate sodium, 1 tablet, Q12H PRN sodium chloride, 3 mL, PRN sodium chloride, 25 mL, PRN ziprasidone, 10 mg, Q6H PRN Recent Results (from the past 48 hours) CBC auto differential Collection Time: 07/17/24 8:34 AM Result Value Ref Range White Blood Cells 4.1 4.0 - 11.0 X10E9/L RBC count 5.54 4.10 - 5.70 X10E12/L Hemoglobin 13.9 13.0 - 17.0 g/dL Hematocrit 41.8 39 - 49 % MCV 76 (L) 80 - 100 fL MCH 25.1 (L) 27 - 34 pg MCHC 33.2 32 - 36 g/dL RDW 15.8 (H) 11.5 - 15.0 % Platelets 180 150 - 450 X10E9/L MPV 7.7 7 - 12 fL % neutrophils 59.6 % % lymphocytes 29.7 % % monocytes 8.2 % % eosinophils 1.9 % % Basophils 0.6 % Neutrophils Absolute (A) 2.5 1.5 - 6.6 X10E9/L Lymphocytes Absolute 1.2 1.0 - 3.5 X10E9/L Monocytes Absolute 0.3 0 - 0.9 X10E9/L Eosinophils Absolute 0.1 0.0 - 0.4 X10E9/L Basophils Absolute 0.0 0.0 - 0.2 X10E9/L Basic Metabolic Panel Collection Time: 07/17/24 8:34 AM Result Value Ref Range Sodium 141 134 - 146 mmol/L Potassium, Bld 4.3 3.5 - 5.0 mmol/L Chloride 104 98 - 109 mmol/L CO2 33 (H) 22 - 32 mmol/L Anion gap 4 (L) 5 - 15 mmol/L BUN 20 5 - 23 mg/dL Creatinine 0.95 0.60 - 1.30 mg/dL Glucose 97 65 - 99 mg/dL Calcium 8.8 8.5 - 10.5 mg/dL eGFR (CKD-EPI)non-race dependent >90 >59 ml/min/1.73sq.m Magnesium Collection Time: 07/17/24 8:34 AM Result Value Ref Range Magnesium 2.2 1.8 - 2.6 mg/dL Lab Review Results from last 7 days Lab Units 07/17/24 0834 WBC X10E9/L 4.1 HEMOGLOBIN g/dL 13.9 HEMATOCRIT % 41.8 PLATELETS X10E9/L 180 MCV fL 76* Results from last 7 days Lab Units 07/17/24 0834 SODIUM mmol/L 141 POTASSIUM mmol/L 4.3 CHLORIDE mmol/L 104 CO2 mmol/L 33* BUN mg/dL 20 CREATININE mg/dL 0.95 CALCIUM mg/dL 8.8 ANION GAP mmol/L 4* Results from last 7 days Lab Units 07/17/24 0834 GLUCOSE mg/dL 97 Results from last 7 days Lab Units 07/17/24 0834 MAGNESIUM mg/dL 2.2 CALCIUM mg/dL 8.8 Microbiology Results No results found for the last 168 hours. No results found. This note was created with the assistance of a speech-recognition program. Although the intention is to generate a document that actually reflects the content of the visit, no guarantees can be provided that every mistake has been identified and corrected by editing. Electronically signed by: SUZANNE SHIPLEY MD, VLADIMIR, FACP 07/17/2024 4:24 PM Preferred contact method: #1. Epic chat #2. [facility] team pager Available from 7 am to 7 pm Images from the original note were not included. [facility] Hospital[facility] 07/16/2024 Patient Name: Noé Jeffery : 1965 Problem List: Principal Problem: Dementia with behavioral disturbance ([facility]) Active Problems: Altered mental status Status post colostomy, follow-up exam ([facility]) Assessment Rapid onset Dementia with behavioral disturbances MRI findings suggestive of diffuse axonal injury LP so far normal with negative meningitis, Lyme, VDRL HIV negative Colloid cyst stable on MRI per report History of hallucinations GERD Hypercholesterolemia History of perforated sigmoid colon status post surgical repair Plan Continue Depakote Sprinkles per Psychiatry recommendations Patient doing much better, has been out of restraints and off tele sitter for a few days now doing well Continues on Aricept, Continue Geodon PRN MR brain demonstrates diffuse axonal injury, LP results negative avoiding ativan due to possibility of paradoxical agitation and potential for worsening when ativan wears off EEG completed, no epileptic focus Avoid Benadryl as this reportedly worsens agitation for the patient Medically ready for discharge, currently working on disposition. DVT prophylaxis: Heparin Code Status: Full Plan of care discussed with patient and family at bedside Scheduled Medications: divalproex sprinkle, 500 mg, oral, Q12H JAREK donepeziL, 5 mg, oral, Nightly DULoxetine, 20 mg, oral, Daily heparin (porcine), 5,000 Units, subcutaneous, Q8H JAREK melatonin, 5 mg, oral, Nightly nicotine, 1 patch, transdermal, Daily pantoprazole, 40 mg, oral, QAM AC QUEtiapine, 150 mg, oral, Nightly AND QUEtiapine, 50 mg, oral, Daily sodium chloride, 3 mL, intravenous, Q12H JAREK Continuous Infusions: PRN Medications: acetaminophen dextrose dextrose 50 % in water (D50W) glucagon (human recombinant) ondansetron ODT sennosides-docusate sodium sodium chloride sodium chloride ziprasidone Subjective: Patient out of restraints, alert and pleasant this morning. No complaints from hi or family Objective: Vitals: Temp: [36.5 C (97.7 F)-37.2 C (98.9 F)] 36.5 C (97.7 F) Pulse: [68-89] 89 Resp: [16-22] 18 BP: (99-114)/(56-71) 104/62 SpO2: [94 %-98 %] 98 % O2 Device: None (Room air) O2 Flow Rate (L/min): [0 L/min] 0 L/min Intake/Output Summary (Last 24 hours) at 07/16/2024 1436 Last data filed at 07/16/2024 1000 Gross per 24 hour Intake 240 ml Output -- Net 240 ml Physical Exam Vitals reviewed. Constitutional: General: He is not in acute distress. Appearance: He is not toxic-appearing. HENT: Head: Normocephalic. Eyes: General: Right eye: No discharge. Left eye: No discharge. Extraocular Movements: Extraocular movements intact. Cardiovascular: Rate and Rhythm: Normal rate. Heart sounds: No murmur heard. Pulmonary: Effort: Pulmonary effort is normal. Breath sounds: No wheezing or rales. Abdominal: General: Abdomen is flat. There is no distension. Musculoskeletal: Right lower leg: No edema. Left lower leg: No edema. Skin: General: Skin is warm. Findings: No rash. Neurological: Mental Status: He is alert. Mental status is at baseline. Psychiatric: Mood and Affect: Mood normal. Behavior: Behavior normal. Thought Content: Thought content normal. Labs: No results found for this or any previous visit (from the past 24 hours). Images: No results found. Micro: Microbiology Results Procedure Component Value Units Date/Time Spinal Fluid culture includes gram stain, CSF [[id number]] Collected: 07/10/24 0939 Specimen: Cerebrospinal Fluid Updated: 07/15/24 0656 Gram Stain Result WHITE BLOOD CELLS PRESENT NO ORGANISMS SEEN ON CONCENTRATED SMEAR Culture NO GROWTH 5 DAYS Physical Medicine and Rehabilitation Daily Progress Note Today's Date and Time: 07/16/2024, 9:31 AM Subjective/Chief complaint: Dementia with behavioral disturbance (CMS-HCC) Principal Problem: Dementia with behavioral disturbance (CMS-HCC) Active Problems: Altered mental status Status post colostomy, follow-up exam (CMS-HCC) SUBJECTIVE Resting in bed, no distress, afebrile Brief HPI 58-year-old male with history of dementia, diabetes mellitus presented to the hospital 2nd to mental status changes. He was seen by psychiatrist and recommended memory care unit. CSF was normal. MRI of the brain did not show any enhancing lesions Review of Systems : Respiratory: denies wheezes or SOB Cardiovascular: denies Chest pain, pressure, palpitations Gastrointestinal: denies abdominal pain, diarrhea, constipation of changes in BM Genitourinary, denies burning during urination, urgency, or increased frequency Neurological: denies dizziness and light-headedness. Physical Examination: Vital signs in last 24 hours: Temp: [36.6 C (97.8 F)-37.2 C (98.9 F)] 37.2 C (98.9 F) Pulse: [68-76] 69 Resp: [16-22] 18 BP: (95-114)/(56-82) 99/61 SpO2: [94 %-98 %] 98 % O2 Device: None (Room air) Intake/Output last 3 shifts: I/O last 3 completed shifts: In: 300 [P.O.:300] Out: - Intake/Output this shift: No intake/output data recorded. General Appearance: No distress Head: Normocephalic, without obvious abnormality, atraumatic Eyes: conjunctivae/corneas clear. PERRL, EOM's intact. Fundi benign. ENT: ENT exam normal, no neck nodes or sinus tenderness Neck: no adenopathy, no carotid bruit, no JVD, supple, symmetrical, trachea midline, and thyroid not enlarged, symmetric, no tenderness/mass/nodules Lungs: clear to auscultation bilaterally Heart: regular rate and rhythm, S1, S2 normal, no murmur, click, rub or gallop Abdomen: soft, non-tender; bowel sounds normal; no masses, no organomegaly Extremities: extremities normal, atraumatic, no cyanosis or edema Skin: Skin color, texture, turgor normal. No rashes or lesions Neurologic: Generalized weakness Laboratory data: I have reviewed the following labs: CBC with Differential:@CBC with Differential: Lab Results Component Value Date WBC 4.1 07/08/2024 HGB 12.7 (L) 07/08/2024 HCT 39.1 07/08/2024 PLT 154 07/08/2024 MCV 75 (L) 07/08/2024 MCH 24.5 (L) 07/08/2024 MCHC 32.5 07/08/2024 RDW 15.6 (H) 07/08/2024 [ BMP: Lab Results Component Value Date GLU 91 07/08/2024 CALCIUM 8.3 (L) 07/08/2024 K 4.1 07/08/2024 CO2 29 07/08/2024 CL 107 07/08/2024 BUN 22 07/08/2024 CREATININE 0.91 07/08/2024 Hepatic Function Panel: No results found for: ALB , PROT @LABRCNT([facility]:3)@ No results found for: CRP No results found for: SEDRATE All Labs reviewed Imaging Studies: All radiological studies reviewed Medications: divalproex sprinkle, 500 mg, oral, Q12H JAREK donepeziL, 5 mg, oral, Nightly DULoxetine, 20 mg, oral, Daily heparin (porcine), 5,000 Units, subcutaneous, Q8H JAREK melatonin, 5 mg, oral, Nightly nicotine, 1 patch, transdermal, Daily pantoprazole, 40 mg, oral, QAM AC QUEtiapine, 150 mg, oral, Nightly AND QUEtiapine, 50 mg, oral, Daily sodium chloride, 3 mL, intravenous, Q12H JAREK All Medications reviewed Impression : Patient Active Problem List Diagnosis Laceration of left ulnar artery Dementia with behavioral disturbance ([facility]) Altered mental status Status post colostomy, follow-up exam ([facility]) Recommendations/Plan: Continue PT, OT and speech therapy Contact guard assist with gait and transfers Will need 24 hour supervision Fall precautions, status post fall Family education Melatonin to regulate sleep cycle Awaiting on placement Will follow up with you for rehab needs Sonya Astudillo MD Images from the original note were not included. [facility] 07/15/2024 Patient Name: Noé Jeffery : 1965 Problem List: Principal Problem: Dementia with behavioral disturbance ([facility]) Active Problems: Altered mental status Status post colostomy, follow-up exam ([facility]) Assessment Rapid onset Dementia with behavioral disturbances MRI findings suggestive of diffuse axonal injury LP so far normal with negative meningitis, Lyme, VDRL HIV negative Colloid cyst stable on MRI per report History of hallucinations GERD Hypercholesterolemia History of perforated sigmoid colon status post surgical repair Plan Continue Depakote Sprinkles per Psychiatry recommendations Patient doing much better, no need for restraints for 48 hours, tele sitter discontinued yesterday Continues on Aricept, Continue Geodon PRN MR brain demonstrates diffuse axonal injury, LP results negative so far avoiding ativan due to possibility of paradoxical agitation and potential for worsening when ativan wears off EEG completed, no epileptic focus Avoid Benadryl as this reportedly worsens agitation for the patient Medically ready for discharge, currently working on disposition. DVT prophylaxis: Heparin Code Status: Full Plan of care discussed with patient and family at bedside Scheduled Medications: divalproex sprinkle, 500 mg, oral, Q12H JAREK donepeziL, 5 mg, oral, Nightly DULoxetine, 20 mg, oral, Daily heparin (porcine), 5,000 Units, subcutaneous, Q8H JAREK melatonin, 5 mg, oral, Nightly nicotine, 1 patch, transdermal, Daily pantoprazole, 40 mg, oral, QAM AC QUEtiapine, 150 mg, oral, Nightly AND QUEtiapine, 50 mg, oral, Daily sodium chloride, 3 mL, intravenous, Q12H JAREK Continuous Infusions: PRN Medications: acetaminophen dextrose dextrose 50 % in water (D50W) glucagon (human recombinant) ondansetron ODT sennosides-docusate sodium sodium chloride sodium chloride ziprasidone Subjective: Patient out of restraints for the last 48 hours with no tele sitter 24 hours. Awake, alert and pleasant. No acute complaints Objective: Vitals: Temp: [36.4 C (97.5 F)-36.9 C (98.4 F)] 36.6 C (97.8 F) Pulse: [66-79] 72 Resp: [11-20] 12 BP: (95-128)/(53-82) 95/82 SpO2: [94 %-98 %] 97 % O2 Device: None (Room air) Intake/Output Summary (Last 24 hours) at 07/15/2024 1403 Last data filed at 07/15/2024 0455 Gross per 24 hour Intake 300 ml Output -- Net 300 ml Physical Exam Vitals reviewed. Constitutional: General: He is not in acute distress. Appearance: He is not toxic-appearing. HENT: Head: Normocephalic. Eyes: General: Right eye: No discharge. Left eye: No discharge. Extraocular Movements: Extraocular movements intact. Cardiovascular: Rate and Rhythm: Normal rate. Heart sounds: No murmur heard. Pulmonary: Effort: Pulmonary effort is normal. Breath sounds: No wheezing or rales. Abdominal: General: Abdomen is flat. There is no distension. Musculoskeletal: Right lower leg: No edema. Left lower leg: No edema. Skin: General: Skin is warm. Findings: No rash. Neurological: Mental Status: He is alert. Mental status is at baseline. Psychiatric: Mood and Affect: Mood normal. Behavior: Behavior normal. Thought Content: Thought content normal. Labs: No results found for this or any previous visit (from the past 24 hours). Images: No results found. Micro: Microbiology Results Procedure Component Value Units Date/Time Spinal Fluid culture includes gram stain, CSF [[id number]] Collected: 07/10/24 0939 Specimen: Cerebrospinal Fluid Updated: 07/15/24 0656 Gram Stain Result WHITE BLOOD CELLS PRESENT NO ORGANISMS SEEN ON CONCENTRATED SMEAR Culture NO GROWTH 5 DAYS Physical Medicine and Rehabilitation Daily Progress Note Today's Date and Time: 07/15/2024, 8:01 AM Subjective/Chief complaint: Dementia with behavioral disturbance ([facility]) Principal Problem: Dementia with behavioral disturbance ([facility]) Active Problems: Altered mental status Status post colostomy, follow-up exam ([facility]) SUBJECTIVE Resting in bed, no distress, Brief HPI 58-year-old male with history of dementia, diabetes mellitus presented to the hospital 2nd to mental status changes. He was seen by psychiatrist and recommended memory care unit. CSF was normal. MRI of the brain did not show any enhancing lesions Review of Systems : Respiratory: denies wheezes or SOB Cardiovascular: denies Chest pain, pressure, palpitations Gastrointestinal: denies abdominal pain, diarrhea, constipation of changes in BM Genitourinary, denies burning during urination, urgency, or increased frequency Neurological: denies dizziness and light-headedness. Physical Examination: Vital signs in last 24 hours: Temp: [36.4 C (97.5 F)-36.9 C (98.4 F)] 36.9 C (98.4 F) Pulse: [50-79] 66 Resp: [11-20] 11 BP: (97-128)/(53-73) 97/53 SpO2: [94 %-98 %] 95 % O2 Device: None (Room air) Intake/Output last 3 shifts: I/O last 3 completed shifts: In: 780 [P.O.:780] Out: 200 [Urine:200] Intake/Output this shift: No intake/output data recorded. General Appearance: No distress Head: Normocephalic, without obvious abnormality, atraumatic Eyes: conjunctivae/corneas clear. PERRL, EOM's intact. Fundi benign. ENT: ENT exam normal, no neck nodes or sinus tenderness Neck: no adenopathy, no carotid bruit, no JVD, supple, symmetrical, trachea midline, and thyroid not enlarged, symmetric, no tenderness/mass/nodules Lungs: clear to auscultation bilaterally Heart: regular rate and rhythm, S1, S2 normal, no murmur, click, rub or gallop Abdomen: soft, non-tender; bowel sounds normal; no masses, no organomegaly Extremities: extremities normal, atraumatic, no cyanosis or edema Skin: Skin color, texture, turgor normal. No rashes or lesions Neurologic: Generalized weakness Laboratory data: I have reviewed the following labs: CBC with Differential:@CBC with Differential: Lab Results Component Value Date WBC 4.1 07/08/2024 HGB 12.7 (L) 07/08/2024 HCT 39.1 07/08/2024 PLT 154 07/08/2024 MCV 75 (L) 07/08/2024 MCH 24.5 (L) 07/08/2024 MCHC 32.5 07/08/2024 RDW 15.6 (H) 07/08/2024 [ BMP: Lab Results Component Value Date GLU 91 07/08/2024 CALCIUM 8.3 (L) 07/08/2024 K 4.1 07/08/2024 CO2 29 07/08/2024 CL 107 07/08/2024 BUN 22 07/08/2024 CREATININE 0.91 07/08/2024 Hepatic Function Panel: No results found for: ALB , PROT @[facility]@ No results found for: CRP No results found for: SEDRATE All Labs reviewed Imaging Studies: All radiological studies reviewed Medications: divalproex sprinkle, 500 mg, oral, Q12H JAREK donepeziL, 5 mg, oral, Nightly DULoxetine, 20 mg, oral, Daily heparin (porcine), 5,000 Units, subcutaneous, Q8H JAREK melatonin, 5 mg, oral, Nightly nicotine, 1 patch, transdermal, Daily pantoprazole, 40 mg, oral, QAM AC QUEtiapine, 150 mg, oral, Nightly AND QUEtiapine, 50 mg, oral, Daily sodium chloride, 3 mL, intravenous, Q12H JAREK All Medications reviewed Impression : Patient Active Problem List Diagnosis Laceration of left ulnar artery Dementia with behavioral disturbance ([facility]) Altered mental status Status post colostomy, follow-up exam ([facility]) Recommendations/Plan: Continue PT, OT and speech therapy Contact guard assist with gait and transfers Will need 24 hour supervision Fall precautions, status post fall Family education Melatonin to regulate sleep cycle Awaiting on placement Will follow up with you for rehab needs Sonya Astudillo MD Images from the original note were not included. 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 LP so far normal with negative meningitis, Lyme, VDRL HIV negative Colloid cyst stable on MRI per report History of hallucinations GERD Hypercholesterolemia History of perforated sigmoid colon status post surgical repair Plan Continue Depakote Sprinkles per Psychiatry recommendations Patient doing much better, no need for restraints for 24 hours, attempting to discontinue tele sitter today Continues on Aricept, Continue Geodon PRN MR brain demonstrates diffuse axonal injury, LP results negative so far avoiding ativan due to possibility of paradoxical agitation and potential for worsening when ativan wears off EEG completed, no epileptic focus Avoid Benadryl as this reportedly worsens agitation for the patient Medically ready for discharge, currently working on disposition. DVT prophylaxis: Heparin Code Status: Full Plan of care discussed with patient and family at bedside Scheduled Medications: divalproex sprinkle, 500 mg, oral, Q12H JAREK donepeziL, 5 mg, oral, Nightly DULoxetine, 20 mg, oral, Daily heparin (porcine), 5,000 Units, subcutaneous, Q8H JAREK melatonin, 5 mg, oral, Nightly nicotine, 1 patch, transdermal, Daily pantoprazole, 40 mg, oral, QAM AC QUEtiapine, 150 mg, oral, Nightly AND QUEtiapine, 50 mg, oral, Daily sodium chloride, 3 mL, intravenous, Q12H JAREK Continuous Infusions: PRN Medications: acetaminophen dextrose dextrose 50 % in water (D50W) glucagon (human recombinant) ondansetron ODT sennosides-docusate sodium sodium chloride sodium chloride ziprasidone Subjective: Patient has not required restraints for 24 hours, doing well. Pleasant at bedside today. No acute concerns from him or family. Discharge planning underway Objective: Vitals: Temp: [36.6 C (97.9 F)-36.7 C (98.1 F)] 36.7 C (98 F) Pulse: [50-95] 50 Resp: [12-22] 18 BP: (89-126)/(63-73) 126/73 SpO2: [94 %-98 %] 95 % O2 Device: None (Room air) O2 Flow Rate (L/min): [0 L/min] 0 L/min Intake/Output Summary (Last 24 hours) at 2024 1219 Last data filed at 07/13/2024 2116 Gross per 24 hour Intake -- Output 200 ml Net -200 ml Physical Exam Vitals reviewed. Constitutional: General: He is not in acute distress. Appearance: He is not toxic-appearing. HENT: Head: Normocephalic. Eyes: General: Right eye: No discharge. Left eye: No discharge. Extraocular Movements: Extraocular movements intact. Cardiovascular: Rate and Rhythm: Normal rate. Heart sounds: No murmur heard. Pulmonary: Effort: Pulmonary effort is normal. Breath sounds: No wheezing or rales. Abdominal: General: Abdomen is flat. There is no distension. Musculoskeletal: Right lower leg: No edema. Left lower leg: No edema. Skin: General: Skin is warm. Findings: No rash. Neurological: Mental Status: He is alert. Mental status is at baseline. Psychiatric: Mood and Affect: Mood normal. Behavior: Behavior normal. Thought Content: Thought content normal. Labs: No results found for this or any previous visit (from the past 24 hours). Images: No results found. Micro: Microbiology Results Procedure Component Value Units Date/Time Spinal Fluid culture includes gram stain, CSF [[id number]] Collected: 07/10/24 0939 Specimen: Cerebrospinal Fluid Updated: 07/14/24 09 Gram Stain Result WHITE BLOOD CELLS PRESENT NO ORGANISMS SEEN ON CONCENTRATED SMEAR Culture NO GROWTH 4 DAYS Physical Medicine and Rehabilitation Daily Progress Note Today's Date and Time: 2024, 8:23 AM Subjective/Chief complaint: Dementia with behavioral disturbance (CMS-[facility]) Principal Problem: Dementia with behavioral disturbance ([facility]) Active Problems: Altered mental status Status post colostomy, follow-up exam ([facility]) SUBJECTIVE Resting in bed, no distress, Brief HPI 58-year-old male with history of dementia, diabetes mellitus presented to the hospital 2nd to mental status changes. He was seen by psychiatrist and recommended memory care unit. CSF was normal. MRI of the brain did not show any enhancing lesions Review of Systems : Respiratory: denies wheezes or SOB Cardiovascular: denies Chest pain, pressure, palpitations Gastrointestinal: denies abdominal pain, diarrhea, constipation of changes in BM Genitourinary, denies burning during urination, urgency, or increased frequency Neurological: denies dizziness and light-headedness. Physical Examination: Vital signs in last 24 hours: Temp: [36.4 C (97.6 F)-36.7 C (98.1 F)] 36.6 C (97.9 F) Pulse: [61-102] 61 Resp: [12-25] 12 BP: (89-125)/(59-72) 114/64 SpO2: [94 %-98 %] 95 % O2 Device: None (Room air) O2 Flow Rate (L/min): [0 L/min] 0 L/min Intake/Output last 3 shifts: I/O last 3 completed shifts: In: - Out: 200 [Urine:200] Intake/Output this shift: No intake/output data recorded. General Appearance: No distress Head: Normocephalic, without obvious abnormality, atraumatic Eyes: conjunctivae/corneas clear. PERRL, EOM's intact. Fundi benign. ENT: ENT exam normal, no neck nodes or sinus tenderness Neck: no adenopathy, no carotid bruit, no JVD, supple, symmetrical, trachea midline, and thyroid not enlarged, symmetric, no tenderness/mass/nodules Lungs: clear to auscultation bilaterally Heart: regular rate and rhythm, S1, S2 normal, no murmur, click, rub or gallop Abdomen: soft, non-tender; bowel sounds normal; no masses, no organomegaly Extremities: extremities normal, atraumatic, no cyanosis or edema Skin: Skin color, texture, turgor normal. No rashes or lesions Neurologic: Generalized weakness Laboratory data: I have reviewed the following labs: CBC with Differential:@CBC with Differential: Lab Results Component Value Date WBC 4.1 07/08/2024 HGB 12.7 (L) 07/08/2024 HCT 39.1 07/08/2024 PLT 154 07/08/2024 MCV 75 (L) 07/08/2024 MCH 24.5 (L) 07/08/2024 MCHC 32.5 07/08/2024 RDW 15.6 (H) 07/08/2024 [ BMP: Lab Results Component Value Date GLU 91 07/08/2024 CALCIUM 8.3 (L) 07/08/2024 K 4.1 07/08/2024 CO2 29 07/08/2024 CL 107 07/08/2024 BUN 22 07/08/2024 CREATININE 0.91 07/08/2024 Hepatic Function Panel: No results found for: ALB , PROT @LABRCNT(VANCOTROUGH:3)@ No results found for: CRP No results found for: SEDRATE All Labs reviewed Imaging Studies: All radiological studies reviewed Medications: divalproex sprinkle, 500 mg, oral, Q12H JAREK donepeziL, 5 mg, oral, Nightly DULoxetine, 20 mg, oral, Daily heparin (porcine), 5,000 Units, subcutaneous, Q8H JAREK melatonin, 5 mg, oral, Nightly nicotine, 1 patch, transdermal, Daily pantoprazole, 40 mg, oral, QAM AC QUEtiapine, 150 mg, oral, Nightly AND QUEtiapine, 50 mg, oral, Daily sodium chloride, 3 mL, intravenous, Q12H JAREK All Medications reviewed Impression : Patient Active Problem List Diagnosis Laceration of left ulnar artery Dementia with behavioral disturbance ([facility]) Altered mental status Status post colostomy, follow-up exam ([facility]) Recommendations/Plan: Continue PT, OT and speech therapy Contact guard assist with gait and transfers Will need 24 hour supervision Fall precautions, status post fall Family education Melatonin to regulate sleep cycle Awaiting on placement Will follow up with you for rehab needs Sonya Astudillo MD Images from the original note were not included. [facility] 07/13/2024 Patient Name: Noé Jeffery : 1965 Problem List: Principal Problem: Dementia with behavioral disturbance ([facility]) Active Problems: Altered mental status Status post colostomy, follow-up exam ([facility]) Assessment Rapid onset Dementia with behavioral disturbances MRI findings suggestive of diffuse axonal injury LP so far normal with negative meningitis, Lyme, VDRL HIV negative Colloid cyst stable on MRI per report History of hallucinations GERD Hypercholesterolemia History of perforated sigmoid colon status post surgical repair Plan Continue Depakote Sprinkles per Psychiatry recommendations Seems to be doing well on increased dose of Seroquel Continues on Aricept, Continue Geodon PRN MR brain demonstrates diffuse axonal injury, LP results negative so far avoiding ativan due to possibility of paradoxical agitation and potential for worsening when ativan wears off EKG with no QT prolongation EEG completed, no epileptic focus Avoid Benadryl as this reportedly worsens agitation for the patient Medically ready for discharge, currently working on disposition. DVT prophylaxis: Heparin Code Status: Full Plan of care discussed with patient and family at bedside Scheduled Medications: divalproex sprinkle, 500 mg, oral, Q12H JAREK donepeziL, 5 mg, oral, Nightly DULoxetine, 20 mg, oral, Daily heparin (porcine), 5,000 Units, subcutaneous, Q8H JAREK melatonin, 5 mg, oral, Nightly nicotine, 1 patch, transdermal, Daily pantoprazole, 40 mg, oral, QAM AC QUEtiapine, 150 mg, oral, Nightly AND QUEtiapine, 50 mg, oral, Daily sodium chloride, 3 mL, intravenous, Q12H JAREK Continuous Infusions: PRN Medications: acetaminophen dextrose dextrose 50 % in water (D50W) glucagon (human recombinant) ondansetron ODT sennosides-docusate sodium sodium chloride sodium chloride ziprasidone Subjective: Patient did not require violent restraints overnight. Up in chair out of restraints this morning, appropriate and pleasant with no acute complaints or concerns from family at bedside Objective: Vitals: Temp: [36.4 C (97.5 F)-36.5 C (97.7 F)] 36.4 C (97.6 F) Pulse: [58-102] 102 Resp: [12-25] 25 BP: (115-141)/(59-84) 115/59 SpO2: [94 %-98 %] 95 % O2 Device: None (Room air) O2 Flow Rate (L/min): [0 L/min] 0 L/min Intake/Output Summary (Last 24 hours) at 07/13/2024 1436 Last data filed at 07/12/2024 1708 Gross per 24 hour Intake 200 ml Output -- Net 200 ml Physical Exam Vitals reviewed. Constitutional: General: He is not in acute distress. Appearance: He is not toxic-appearing. HENT: Head: Normocephalic. Eyes: General: Right eye: No discharge. Left eye: No discharge. Extraocular Movements: Extraocular movements intact. Cardiovascular: Rate and Rhythm: Normal rate. Heart sounds: No murmur heard. Pulmonary: Effort: Pulmonary effort is normal. Breath sounds: No wheezing or rales. Abdominal: General: Abdomen is flat. There is no distension. Musculoskeletal: Right lower leg: No edema. Left lower leg: No edema. Skin: General: Skin is warm. Findings: No rash. Neurological: Mental Status: He is alert. Mental status is at baseline. Psychiatric: Mood and Affect: Mood normal. Behavior: Behavior normal. Thought Content: Thought content normal. Labs: No results found for this or any previous visit (from the past 24 hours). Images: No results found. Micro: Microbiology Results Procedure Component Value Units Date/Time Spinal Fluid culture includes gram stain, CSF [[id number]] Collected: 07/10/24 0939 Specimen: Cerebrospinal Fluid Updated: 07/13/24 0730 Gram Stain Result WHITE BLOOD CELLS PRESENT NO ORGANISMS SEEN ON CONCENTRATED SMEAR Culture NO GROWTH 3 DAYS Physical Medicine and Rehabilitation Daily Progress Note Today's Date and Time: 07/13/2024, 9:28 AM Subjective/Chief complaint: Dementia with behavioral disturbance (CMS-[facility]) Principal Problem: Dementia with behavioral disturbance (CMS-HCC) Active Problems: Altered mental status Status post colostomy, follow-up exam (CMS-[facility]CC) SUBJECTIVE Resting in bed, denies any chest pains or shortness of breath Brief HPI 58-year-old male with history of dementia, diabetes mellitus presented to the hospital 2nd to mental status changes. He was seen by psychiatrist and recommended memory care unit. CSF was normal. MRI of the brain did not show any enhancing lesions Review of Systems : Respiratory: denies wheezes or SOB Cardiovascular: denies Chest pain, pressure, palpitations Gastrointestinal: denies abdominal pain, diarrhea, constipation of changes in BM Genitourinary, denies burning during urination, urgency, or increased frequency Neurological: denies dizziness and light-headedness. Physical Examination: Vital signs in last 24 hours: Temp: [36.4 C (97.5 F)-36.9 C (98.4 F)] 36.4 C (97.5 F) Pulse: [58-110] 58 Resp: [12-18] 12 BP: (122-141)/(73-92) 137/81 SpO2: [94 %-98 %] 95 % O2 Device: None (Room air) O2 Flow Rate (L/min): [0 L/min] 0 L/min Intake/Output last 3 shifts: I/O last 3 completed shifts: In: 440 [P.O.:440] Out: - Intake/Output this shift: No intake/output data recorded. General Appearance: No distress Head: Normocephalic, without obvious abnormality, atraumatic Eyes: conjunctivae/corneas clear. PERRL, EOM's intact. Fundi benign. ENT: ENT exam normal, no neck nodes or sinus tenderness Neck: no adenopathy, no carotid bruit, no JVD, supple, symmetrical, trachea midline, and thyroid not enlarged, symmetric, no tenderness/mass/nodules Lungs: clear to auscultation bilaterally Heart: regular rate and rhythm, S1, S2 normal, no murmur, click, rub or gallop Abdomen: soft, non-tender; bowel sounds normal; no masses, no organomegaly Extremities: extremities normal, atraumatic, no cyanosis or edema Skin: Skin color, texture, turgor normal. No rashes or lesions Neurologic: Generalized weakness Laboratory data: I have reviewed the following labs: CBC with Differential:@CBC with Differential: Lab Results Component Value Date WBC 4.1 07/08/2024 HGB 12.7 (L) 07/08/2024 HCT 39.1 07/08/2024 PLT 154 07/08/2024 MCV 75 (L) 07/08/2024 MCH 24.5 (L) 07/08/2024 MCHC 32.5 07/08/2024 RDW 15.6 (H) 07/08/2024 [ BMP: Lab Results Component Value Date GLU 91 07/08/2024 CALCIUM 8.3 (L) 07/08/2024 K 4.1 07/08/2024 CO2 29 07/08/2024 CL 107 07/08/2024 BUN 22 07/08/2024 CREATININE 0.91 07/08/2024 Hepatic Function Panel: No results found for: ALB , PROT @LABRCNT(VANCOTROUGH:3)@ No results found for: CRP No results found for: SEDRATE All Labs reviewed Imaging Studies: All radiological studies reviewed Medications: divalproex sprinkle, 500 mg, oral, Q12H JAREK donepeziL, 5 mg, oral, Nightly DULoxetine, 20 mg, oral, Daily heparin (porcine), 5,000 Units, subcutaneous, Q8H JAREK melatonin, 5 mg, oral, Nightly nicotine, 1 patch, transdermal, Daily pantoprazole, 40 mg, oral, QAM AC QUEtiapine, 150 mg, oral, Nightly AND QUEtiapine, 50 mg, oral, Daily sodium chloride, 3 mL, intravenous, Q12H JAREK All Medications reviewed Impression : Patient Active Problem List Diagnosis Laceration of left ulnar artery Dementia with behavioral disturbance ([facility]) Altered mental status Status post colostomy, follow-up exam ([facility]) Recommendations/Plan: Continue PT, OT and speech therapy Contact guard assist with gait and transfers Will benefit from inpatient rehab, TBI Unit Will need 24 hour supervision Fall precautions, status post fall Family education Melatonin to regulate sleep cycle Will follow up with you for rehab needs Sonya Astudillo MD Images from the original note were not included. 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 LP so far normal with negative meningitis, Lyme, VDRL HIV negative Colloid cyst stable on MRI per report History of hallucinations GERD Hypercholesterolemia History of perforated sigmoid colon status post surgical repair Plan Added Depakote Sprinkles yesterday per Psychiatry recommendations Increase Seroquel today Continues on Aricept, Continue Geodon PRN MR brain demonstrates diffuse axonal injury, LP results negative so far avoiding ativan due to possibility of paradoxical agitation and potential for worsening when ativan wears off EKG with no QT prolongation EEG completed, no epileptic focus Avoid Benadryl as this reportedly worsens agitation for the patient Medically ready for discharge, currently working on disposition. Refused from adult psych facility. PM&R consult today to see if we can get to inpatient TBI IPR Unit DVT prophylaxis: Heparin Code Status: Full Plan of care discussed with patient and family at bedside Scheduled Medications: divalproex sprinkle, 500 mg, oral, Q12H JAREK donepeziL, 5 mg, oral, Nightly DULoxetine, 20 mg, oral, Daily heparin (porcine), 5,000 Units, subcutaneous, Q8H JRAEK melatonin, 5 mg, oral, Nightly nicotine, 1 patch, transdermal, Daily pantoprazole, 40 mg, oral, QAM AC QUEtiapine, 150 mg, oral, Nightly AND QUEtiapine, 50 mg, oral, Daily sodium chloride, 3 mL, intravenous, Q12H JAREK Continuous Infusions: PRN Medications: acetaminophen dextrose dextrose 50 % in water (D50W) glucagon (human recombinant) ondansetron ODT sennosides-docusate sodium sodium chloride sodium chloride ziprasidone Subjective: Overnight patient again required placement of violent restraints she became aggressive and hostile towards staff. In soft restraints this morning and pleasant and cooperative Objective: Vitals: Temp: [36.4 C (97.5 F)] 36.4 C (97.5 F) Pulse: [63-72] 63 BP: (131-150)/(78-121) 132/78 SpO2: [95 %] 95 % O2 Device: None (Room air) O2 Flow Rate (L/min): [0 L/min] 0 L/min No intake or output data in the 24 hours ending 07/12/24 1126 Physical Exam Vitals reviewed. Constitutional: General: He is not in acute distress. Appearance: He is not toxic-appearing. HENT: Head: Normocephalic. Eyes: General: Right eye: No discharge. Left eye: No discharge. Extraocular Movements: Extraocular movements intact. Cardiovascular: Rate and Rhythm: Normal rate. Heart sounds: No murmur heard. Pulmonary: Effort: Pulmonary effort is normal. Breath sounds: No wheezing or rales. Abdominal: General: Abdomen is flat. There is no distension. Musculoskeletal: Right lower leg: No edema. Left lower leg: No edema. Skin: General: Skin is warm. Findings: No rash. Neurological: Mental Status: He is alert. Mental status is at baseline. Psychiatric: Mood and Affect: Mood normal. Behavior: Behavior normal. Thought Content: Thought content normal. Labs: No results found for this or any previous visit (from the past 24 hours). Images: No results found. Micro: Microbiology Results Procedure Component Value Units Date/Time Spinal Fluid culture includes gram stain, CSF [[id number]] Collected: 07/10/24 0939 Specimen: Cerebrospinal Fluid Updated: 07/12/24 0736 Gram Stain Result WHITE BLOOD CELLS PRESENT NO ORGANISMS SEEN ON CONCENTRATED SMEAR Culture NO GROWTH 2 DAYS Images from the original note were not included. [facility] Neurology General Neurology Consultation Progress Note Consult Neurology Service: [phone] Chief Complaint and Reason for Consultation: Decline in mental status Brief Summary: Noé Jeffery is a 58 y.o. 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 He follows up with [facility] Neurology and had underwent a heavy metal screen, [facility] analysis, MRI 2021 showing severe generalized volume loss and hippocampal volumes at the 1st percentile of his age group. Patient had been having forgetfulness and increase cognition since 2021 but per family was driving and functioning normally up until having a fall June 09 after which he started having behavioral changes and would walk outside in the called and easily angry, that time workup was negative and nothing was reported on a CT per family. And that is when his mental status took a sharp decline, Patient had presented to ED in [place] June 18 after waking up not oriented and delusional. Then June 25 he woke up again not knowing where he is delusional thinking his sister was an intruder so he was brought to [facility] and discharged later that evening. He was seen by social service assistant referred to a mental health center and per family his mental status had worsened and they felt he was being overmedicated with Benadryl. 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 The impression there was no infectious or metabolic etiology so patient was transferred to [facility] for higher level of care. Interval History: Overnight patient was again agitated requiring restraints. At the time of evaluation in the morning, he appeared calm. Pertinent past Medical History/Family/Social History reviewed as per initial HPI. Pertinent Systems reviewed as per initial HPI, and negative as below except for mentioned above. Medications: Scheduled Meds: divalproex sprinkle, 500 mg, oral, Q12H JAREK donepeziL, 5 mg, oral, Nightly DULoxetine, 20 mg, oral, Daily heparin (porcine), 5,000 Units, subcutaneous, Q8H JAREK melatonin, 5 mg, oral, Nightly nicotine, 1 patch, transdermal, Daily pantoprazole, 40 mg, oral, QAM AC QUEtiapine, 75 mg, oral, Nightly AND QUEtiapine, 25 mg, oral, Daily sodium chloride, 3 mL, intravenous, Q12H JAREK Continuous Infusions: PRN Meds:. acetaminophen dextrose dextrose 50 % in water (D50W) glucagon (human recombinant) ondansetron ODT sennosides-docusate sodium sodium chloride sodium chloride ziprasidone Physical Exam Vital Signs: BP 150/88 Pulse 101 Temp 36.5 C (97.7 F) (Oral) Resp 20 SpO2 95% O2 Device: None (Room air) Constitutional: Restless, well groomed, and of stated age, in bilateral violent wrist restraints Respiratory: Normal respiratory effort. Cardiac: Regular rate and rhythm. Extremities: Peripheral pulses intact, no significant edema Neurological Exam: Mental Status: Cooperative but restless. Alert and oriented to self only. Ophthalmologic: Sclera clear, no ptosis, ophthalmoscopic exam deferred Cranial Nerves I: Not assessed II: Blinks to threat bilaterally III, IV, : Able to track examiner across room, No nystagmus V: Facial sensation equal and intact B/L. VII: Symmetrical face VIII: Hearing intact bilaterally IX, X: Patient unable to follow command XI: Trapezius elevation/ strength is normal and symmetric XII: Patient unable to follow command Motor Function: Normal bulk. Normal muscle tone. No tremors. No bradykinesia or other abnormal movements. 5/5 strength throughout. Deep Tendon Reflexes: (Right, Left): Biceps 2, 2; brachioradialis 2, 2; patellae 2, 2; ankles 2, 2. No clonus elicited. Plantar response was flexor bilaterally. Sensation: Light touch intact throughout. Coordination: Unable to understand the command Gait: deferred since requiring restraints. . Imaging: MRI brain with and without contrast: The high attenuation focus shown on brain CT from July 07 at the anterior aspect of the third ventricle 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 Extensive brain atrophy and ischemic white matter changes. Other testing: rEEG 07/08: mild to moderate diffuse encephalopathy HIV 1&2: Nonreactive Ammonia: Normal Folate: Normal B12: Normal Syphilis total: <0.2 Lyme total: <0.2 CSF analysis: CSF Protein, glucose normal Nucleated cells 1 Meningitis panel - negative Assessment: This is a 58-year-old male with past history of complex sleep apnea on CPAP, major cognitive disorder with CSF bio markers confirmed early onset Alzheimer's established in [facility] September 2022 (Dr. Lemuel Guerra) but reportedly functional at home per family, in addition to hyperlipidemia, GERD, T2DM. Patient was transferred found [facility] for higher level of care and workup of sharp decline in cognition since May 2024. Patient had presented multiple times to the ED and admitted [facility] for delusional thinking/hallucinations/agitatio n. Impression: Acute decline in mental status after a fall in May in the setting of early onset Alzheimer's disease, possibly secondary to concussion vs TBI Severe agitation and psychosis, in the setting of Ativan, Benadryl and Rexulti use, mostly at nighttime Plan: The results of CSF analysis are normal so far. The rest of the results can be followed outpatient. Follow up outpatient with Neurology for Alzheimer's dementia. Follow-up outpatient in TBI clinic. Avoid Ativan, Benadryl and Rexulti use. Receiving prn Geodon per primary. Melatonin 5 mg hs for sleep Recommend Psychiatry consultation. General neurology will sign off. Please call us in case any further questions or concerns arise. rAnulfo Haley MD PGY2 Neurology [facility] Seen and staffed with: Dr. Nails This patient is being followed by the Neurology Resident service. Contact attending directly during these hours: Tuesday to 7:30-8:30 A.M. to Tuesday 12-1:00 p.m. Primary Neurology service: [phone] Consult neurology service: [phone] Resident Stroke Service: [phone] If the patient belongs to the Stroke ASHLEE service please contact the Stroke ASHLEE directly. Cosigned by Zach Nails MD at 07/11/2024 9:40 PM EST Associated attestation - Zach Nails MD - 07/11/2024 9:40 PM EST Attending Attestation: I saw the patient. I participated and was physically present during the critical/jimenez portions of the service. I was directly involved in the management and treatment plan of the patient. I reviewed the resident's note and agree with the documentation. Additional Notes/Findings: Early onset Alzheimer's disease however intact ADLs and IADLs as per family prior to fall in May. Patient was driving until June 08 Change in personality, impaired comprehension, attention, episodes of severe aggression, and paranoid behavior as per family is new and noted after a fall, has been getting worse over the last few days, requiring soft restraints. MRI Brain with and without contrast reviewed independantly -small foci of FLAIR hyperintense signals multifocal with right frontal dominance, subcortical white matter and some juxtacortical/cortical, without any evidence of restricted diffusion or abnormal contrast enhancement. Diffuse cortical atrophy. These findings are suggestive of diffuse axonal injury /TBI. Cortical atrophy is consistent with patient's diagnosis of early onset dementia. LP was performed under sedation in PACU. CSF Protein, glucose normal Nucleated cells 1 Meningitis panel - negative Serum lyme testing, VDRL and HIV negative. B12 -> 500 Impression: TBI (diffuse axonal injury), pre-existing diagnosis of early onset Alzheimer's disease. Outpatient follow up with Neurology, will follow up on CSF autoimmune panel, and rest of the pending results. Psych evaluation done today, recommended Depakote 500 mg BID to be started for mood stabilization. Today, patient refused to talk to our team. He was agitated and in soft restraints. I have had extensive discussion with the and mother. Its best for the patient to follow up in TBI Clinic for cognitive rehabilitation when stable enough to participate. Psych recommended memory care facility as a safe discharge disposition. He does not meet the criteria for inpatient psych admission. Neurology will sign off, Please do not hesitate to call us for any question or concerns. Zach Nails MD. [facility] of Neurology [facility] Images from the original note were not included. [facility] 07/11/2024 Patient Name: Noé Jeffery : 1965 Problem List: Principal Problem: Dementia with behavioral disturbance (CMS-HCC) Active Problems: Altered mental status Assessment Rapid onset Dementia with behavioral disturbances MRI findings suggestive of diffuse axonal injury LP so far normal with negative meningitis, Lyme, VDRL HIV negative Colloid cyst stable on MRI per report History of hallucinations GERD Hypercholesterolemia History of perforated sigmoid colon status post surgical repair Plan Continues on Seroquel and Aricept, Continue Geodon PRN MR brain demonstrates diffuse axonal injury, LP results negative so far avoiding ativan due to possibility of paradoxical agitation and potential for worsening when ativan wears off. Family reports that agitation seems to be most severe when patient is waking from sleep due to being disoriented at that time EKG with no QT prolongation EEG completed, no epileptic focus Avoid Benadryl as this reportedly worsens agitation for the patient Medically ready for discharge, currently working on disposition. Refused from [address] [place] [address] DVT prophylaxis: Heparin Code Status: Full Plan of care discussed with patient and family at bedside Scheduled Medications: donepeziL, 5 mg, oral, Nightly DULoxetine, 20 mg, oral, Daily heparin (porcine), 5,000 Units, subcutaneous, Q8H JAREK melatonin, 5 mg, oral, Nightly nicotine, 1 patch, transdermal, Daily pantoprazole, 40 mg, oral, QAM AC QUEtiapine, 75 mg, oral, Nightly AND QUEtiapine, 25 mg, oral, Daily sodium chloride, 3 mL, intravenous, Q12H JAREK Continuous Infusions: PRN Medications: acetaminophen dextrose dextrose 50 % in water (D50W) glucagon (human recombinant) ondansetron ODT sennosides-docusate sodium sodium chloride sodium chloride ziprasidone Subjective: Patient seen and examined at bedside this morning. Calm and pleasant at time of evaluation, we will attempt to keep out of violent restraints today, did okay with them yesterday but got very poor violent and agitated overnight and they had to be put on Objective: Vitals: Temp: [36.5 C (97.7 F)] 36.5 C (97.7 F) Pulse: [101-135] 101 Resp: [18-26] 20 BP: (102-135)/(80-98) 128/90 SpO2: [94 %-98 %] 95 % O2 Device: None (Room air) No intake or output data in the 24 hours ending 07/11/24 1113 Physical Exam Vitals reviewed. Constitutional: General: He is not in acute distress. Appearance: He is not toxic-appearing. HENT: Head: Normocephalic. Eyes: General: Right eye: No discharge. Left eye: No discharge. Extraocular Movements: Extraocular movements intact. Cardiovascular: Rate and Rhythm: Normal rate. Heart sounds: No murmur heard. Pulmonary: Effort: Pulmonary effort is normal. Breath sounds: No wheezing or rales. Abdominal: General: Abdomen is flat. There is no distension. Musculoskeletal: Right lower leg: No edema. Left lower leg: No edema. Skin: General: Skin is warm. Findings: No rash. Neurological: Mental Status: He is alert. Mental status is at baseline. Psychiatric: Mood and Affect: Mood normal. Behavior: Behavior normal. Thought Content: Thought content normal. Labs: No results found for this or any previous visit (from the past 24 hours). Images: MR brain with and without contrast Result Date: 07/10/2024 STUDY: MRI brain with without contrast . CLINICAL HISTORY: Mental status change, unknown cause COMPARISON: July 03, 2024 brain MRI from [facility] Procedure: Multiplanar, multisequence imaging performed through the brain, including pre and post contrast T1 weighted images using IV contrast. Findings: The high attenuation focus shown on brain CT from July 07 at the anterior aspect of the third ventricle 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 It is difficult to localize with certainty on the brain MRI and does not enhance. Specifically, there are no enhancing or aggressive brain lesions. Extensive brain atrophy and ischemic white matter disease similar to the prior study There are no other intracranial masses, mass-effect, extra-axial fluid collection, or hydrocephalus. Sensitivity for acute hemorrhage limited on MRI, but grossly no acute hemorrhage identified. Midline sagittal structures are unremarkable including pituitary fossa, infundibulum, optic chiasm, corpus callosum, brainstem, fourth ventricle, cerebellum, and cranio-cervical junction. Flow voids documented in makah of [place] and dural venous sinuses. No pathologic contrast enhancement. Diffusion weighted images show no evidence for acute infarct. The deep white matter shows no acute changes. IMPRESSION: The high attenuation focus shown on brain CT from July 07 at the anterior aspect of the third ventricle 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 It is difficult to localize with certainty on the brain MRI and does not enhance. Specifically, there are no enhancing or aggressive brain lesions. Finalized by Wilson Lu MD on 07/10/2024 11:31 AM Micro: Microbiology Results Procedure Component Value Units Date/Time Spinal Fluid culture includes gram stain, CSF [[id number]] Collected: 07/10/24 0939 Specimen: Cerebrospinal Fluid Updated: 07/11/24 0718 Gram Stain Result WHITE BLOOD CELLS PRESENT NO ORGANISMS SEEN ON CONCENTRATED SMEAR Culture NO GROWTH <24 HRS Images from the original note were not included. [facility] Neurology General Neurology Consultation Progress Note Consult Neurology Service: [phone] Chief Complaint and Reason for Consultation: Decline in mental status Brief Summary: Noé Jeffery is a 58 y.o. 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 He follows up with [facility] Neurology and had underwent a heavy metal screen, [facility] analysis, MRI 2021 showing severe generalized volume loss and hippocampal volumes at the 1st percentile of his age group. Patient had been having forgetfulness and increase cognition since 2021 but per family was driving and functioning normally up until having a fall June 09 after which he started having behavioral changes and would walk outside in the called and easily angry, that time workup was negative and nothing was reported on a CT per family. And that is when his mental status took a sharp decline, Patient had presented to ED in [place] June 18 after waking up not oriented and delusional. Then June 25 he woke up again not knowing where he is delusional thinking his sister was an intruder so he was brought to [facility] and discharged later that evening. He was seen by social service assistant referred to a mental health center and per family his mental status had worsened and they felt he was being overmedicated with Benadryl. 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 The impression there was no infectious or metabolic etiology so patient was transferred to [facility] for higher level of care. Interval History: Patient underwent MRI brain and lumbar puncture with sedation this morning. He was re-evaluated after lumbar puncture. He appeared calm and is in soft restraints. Pertinent past Medical History/Family/Social History reviewed as per initial HPI. Pertinent Systems reviewed as per initial HPI, and negative as below except for mentioned above. Medications: Scheduled Meds: donepeziL, 5 mg, oral, Nightly DULoxetine, 20 mg, oral, Daily heparin (porcine), 5,000 Units, subcutaneous, Q8H AJREK melatonin, 5 mg, oral, Nightly nicotine, 1 patch, transdermal, Daily pantoprazole, 40 mg, oral, QAM AC QUEtiapine, 75 mg, oral, Nightly AND QUEtiapine, 25 mg, oral, Daily sodium chloride, 3 mL, intravenous, Q12H JAREK Continuous Infusions: PRN Meds:. acetaminophen dextrose dextrose 50 % in water (D50W) glucagon (human recombinant) ondansetron ODT sennosides-docusate sodium sodium chloride sodium chloride ziprasidone Physical Exam Vital Signs: BP (!) 135/98 Pulse 62 Temp 36.5 C (97.7 F) (Oral) Resp 18 SpO2 98% O2 Device: None (Room air) Constitutional: Restless, well groomed, and of stated age, in bilateral violent wrist restraints Respiratory: Normal respiratory effort. Cardiac: Regular rate and rhythm. Extremities: Peripheral pulses intact, no significant edema Neurological Exam: Mental Status: Cooperative but restless. Alert and oriented to self only. Ophthalmologic: Sclera clear, no ptosis, ophthalmoscopic exam deferred Cranial Nerves I: Not assessed II: Blinks to threat bilaterally III, IV, : Able to track examiner across room, No nystagmus V: Facial sensation equal and intact B/L. VII: Symmetrical face VIII: Hearing intact bilaterally IX, X: Patient unable to follow command XI: Trapezius elevation/ strength is normal and symmetric XII: Patient unable to follow command Motor Function: Normal bulk. Normal muscle tone. No tremors. No bradykinesia or other abnormal movements. 5/5 strength throughout. Deep Tendon Reflexes: (Right, Left): Biceps 2, 2; brachioradialis 2, 2; patellae 2, 2; ankles 2, 2. No clonus elicited. Plantar response was flexor bilaterally. Sensation: Light touch intact throughout. Coordination: Unable to understand the command Gait: deferred since requiring restraints. . Imaging: MRI brain with and without contrast: The high attenuation focus shown on brain CT from July 07 at the anterior aspect of the third ventricle 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 Extensive brain atrophy and ischemic white matter changes. Other testing: rEEG 07/08: mild to moderate diffuse encephalopathy HIV 1&2: Nonreactive Ammonia: Normal Folate: Normal B12: Normal Syphilis total: <0.2 Lyme total: <0.2 Assessment: This is a 58-year-old male with past history of complex sleep apnea on CPAP, major cognitive disorder with CSF bio markers confirmed early onset Alzheimer's established in [facility] September 2022 (Dr. Lemuel Guerra) but reportedly functional at home per family, in addition to hyperlipidemia, GERD, T2DM. Patient was transferred found [facility] for higher level of care and workup of sharp decline in cognition since May 2024. Patient had presented multiple times to the ED and admitted [facility] for delusional thinking/hallucinations/agitatio n. Impression: Acute decline in mental status after a fall in May in the setting of early onset Alzheimer's disease, possibly secondary to concussion vs TBI Severe agitation and psychosis, in the setting of Ativan, Benadryl and Rexulti use, mostly at nighttime Plan: Follow-up results of CSF analysis. Avoid Ativan, Benadryl and Rexulti use. Receiving prn Geodon per primary. Melatonin 5 mg hs for sleep Recommend Psychiatry consultation. General neurology will follow. Arnulfo Haley MD PGY2 Neurology [facility] Seen and staffed with: Dr. Nails This patient is being followed by the Neurology Resident service. Contact attending directly during these hours: Tuesday to 7:30-8:30 A.M. to Tuesday 12-1:00 p.m. Primary Neurology service: [phone] Consult neurology service: [phone] Resident Stroke Service: [phone] If the patient belongs to the Stroke ASHLEE service please contact the Stroke ASHLEE directly. Cosigned by Zach Nails MD at 07/10/2024 11:55 PM EST Associated attestation - Zach Nails MD - 07/10/2024 11:55 PM EST Attending Attestation: I saw the patient. I participated and was physically present during the critical/jimenez portions of the service. I was directly involved in the management and treatment plan of the patient. I reviewed the resident's note and agree with the documentation. Additional Notes/Findings: Early onset Alzheimer's disease however intact ADLs and IADLs as per family prior to fall in May. Patient was driving until 3 weeks ago. Change in personality, impaired comprehension, attention, episodes of severe aggression, and paranoid behavior as per family is new and noted about 3 weeks ago, after a fall. There is a report of muscle jerks. Differentials at this time includes post concussion syndrome, progression of underlying neurodegenerative disease. MRI Brain with and without contrast reviewed -small foci of FLAIR hyperintense signals multifocal with right frontal dominance, subcortical white matter and some juxtacortical/cortical, without any evidence of restricted diffusion or abnormal contrast enhancement. Diffuse cortical atrophy. These findings are suggestive of diffuse axonal injury - TBI and cortical atrophy is consistent with patient's diagnosis of early onset dementia. LP was performed under sedation in PACU. CSF Protein, glucose normal Nucleated cells 1 Meningitis panel - negative Serum lyme testing, VDRL and HIV negative. B12 -> 500 Impression: TBI (diffuse axonal injury), pre-existing diagnosis of early onset Alzheimer's disease. Outpatient follow up with Neurology, will follow up on CSF autoimmune panel, and rest of the pending results. Due to behavioral issues, may need psych evaluation and appropriate disposition. Zach Nails MD. [facility] of Neurology [facility] Images from the original note were not included. [facility] 07/10/2024 Patient Name: Noé Jeffery : 1965 Problem List: Principal Problem: Dementia with behavioral disturbance (CMS-HCC) Active Problems: Altered mental status Assessment Rapid onset Dementia with behavioral disturbances Colloid cyst stable on MRI per report History of hallucinations GERD Hypercholesterolemia History of perforated sigmoid colon status post surgical repair Plan Continues on Seroquel and Aricept, Continue Geodon PRN MR brain demonstrates a tiny colloid cyst but nothing enhancing or aggressive apeparing lumbar puncture under sedation today, follow up results avoiding ativan due to possibility of paradoxical agitation and potential for worsening when ativan wears off. Family reports that agitation seems to be most severe when patient is waking from sleep due to being disoriented at that time EKG with no QT prolongation EEG completed, no epileptic focus Avoid Benadryl as this reportedly worsens agitation for the patient DVT prophylaxis: Heparin Code Status: Full Plan of care discussed with patient and family at bedside Scheduled Medications: donepeziL, 5 mg, oral, Nightly DULoxetine, 20 mg, oral, Daily heparin (porcine), 5,000 Units, subcutaneous, Q8H JAREK melatonin, 5 mg, oral, Nightly nicotine, 1 patch, transdermal, Daily pantoprazole, 40 mg, oral, QAM AC QUEtiapine, 75 mg, oral, Nightly AND QUEtiapine, 25 mg, oral, Daily sodium chloride, 3 mL, intravenous, Q12H JAREK Continuous Infusions: PRN Medications: acetaminophen dextrose dextrose 50 % in water (D50W) glucagon (human recombinant) ondansetron ODT sennosides-docusate sodium sodium chloride sodium chloride ziprasidone Subjective: Patient seen after his MRI and lumbar puncture this morning, relatively calm and pleasant. We will remove violent restraints at this time and reassess as needed. No acute complaints. Objective: Vitals: Temp: [36.3 C (97.3 F)-36.5 C (97.7 F)] 36.5 C (97.7 F) Pulse: [56-72] 62 Resp: [14-22] 18 BP: (116-135)/(72-98) 135/98 SpO2: [95 %-100 %] 98 % O2 Device: None (Room air) Intake/Output Summary (Last 24 hours) at 07/10/2024 1208 Last data filed at 07/10/2024 1002 Gross per 24 hour Intake 1440 ml Output 250 ml Net 1190 ml Physical Exam Vitals reviewed. Constitutional: General: He is not in acute distress. Appearance: He is not toxic-appearing. HENT: Head: Normocephalic. Eyes: General: Right eye: No discharge. Left eye: No discharge. Extraocular Movements: Extraocular movements intact. Cardiovascular: Rate and Rhythm: Normal rate. Heart sounds: No murmur heard. Pulmonary: Effort: Pulmonary effort is normal. Breath sounds: No wheezing or rales. Abdominal: General: Abdomen is flat. There is no distension. Musculoskeletal: Right lower leg: No edema. Left lower leg: No edema. Skin: General: Skin is warm. Findings: No rash. Neurological: Mental Status: He is alert. Mental status is at baseline. Psychiatric: Mood and Affect: Mood normal. Behavior: Behavior normal. Thought Content: Thought content normal. Labs: Recent Results (from the past 24 hours) Unlisted Lab Test TANNER virus Collection Time: 07/09/24 4:12 PM Result Value Ref Range Unlisted lab test Sent to reference lab Images: MR brain with and without contrast Result Date: 07/10/2024 STUDY: MRI brain with without contrast . CLINICAL HISTORY: Mental status change, unknown cause COMPARISON: July 03, 2024 brain MRI from [facility] Procedure: Multiplanar, multisequence imaging performed through the brain, including pre and post contrast T1 weighted images using IV contrast. Findings: The high attenuation focus shown on brain CT from July 07 at the anterior aspect of the third ventricle 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 It is difficult to localize with certainty on the brain MRI and does not enhance. Specifically, there are no enhancing or aggressive brain lesions. Extensive brain atrophy and ischemic white matter disease similar to the prior study There are no other intracranial masses, mass-effect, extra-axial fluid collection, or hydrocephalus. Sensitivity for acute hemorrhage limited on MRI, but grossly no acute hemorrhage identified. Midline sagittal structures are unremarkable including pituitary fossa, infundibulum, optic chiasm, corpus callosum, brainstem, fourth ventricle, cerebellum, and cranio-cervical junction. Flow voids documented in makah of [place] and dural venous sinuses. No pathologic contrast enhancement. Diffusion weighted images show no evidence for acute infarct. The deep white matter shows no acute changes. IMPRESSION: The high attenuation focus shown on brain CT from July 07 at the anterior aspect of the third ventricle 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 It is difficult to localize with certainty on the brain MRI and does not enhance. Specifically, there are no enhancing or aggressive brain lesions. Finalized by Wilson Lu MD on 07/10/2024 11:31 AM Micro: Microbiology Results Procedure Component Value Units Date/Time Spinal Fluid culture includes gram stain, CSF [[id number]] Resulted: 07/10/24 1055 Updated: 07/10/24 1148 Images from the original note were not included. [facility] 07/09/2024 Patient Name: Noé Jeffery : 1965 Problem List: Principal Problem: Dementia with behavioral disturbance (CMS-HCC) Active Problems: Altered mental status Assessment Rapid onset Dementia with behavioral disturbances Colloid cyst stable on MRI per report History of hallucinations GERD Hypercholesterolemia History of perforated sigmoid colon status post surgical repair Plan Continues on Seroquel and Aricept Discuss with neurology. Planning on MR brain and lumbar puncture under sedation Continue Pasha [place] Patient continues to have episodes of agitation and is in restraints. Discussed with neurology. Patient has ongoing episodes of agitation. They advised avoiding ativan due to possibility of paradoxical agitation and potential for worsening when ativan wears off. Family reports that agitation seems to be most severe when patient is waking from sleep due to being disoriented at that time EKG pending EEG completed, no epileptic focus Avoid Benadryl as this reportedly worsens agitation for the patient DVT prophylaxis: Heparin Code Status: Full Plan of care discussed with patient and family at bedside Scheduled Medications: donepeziL, 5 mg, oral, Nightly DULoxetine, 20 mg, oral, Daily heparin (porcine), 5,000 Units, subcutaneous, Q8H JAREK melatonin, 5 mg, oral, Nightly nicotine, 1 patch, transdermal, Daily pantoprazole, 40 mg, oral, QAM AC QUEtiapine, 75 mg, oral, Nightly AND QUEtiapine, 25 mg, oral, Daily sodium chloride, 3 mL, intravenous, Q12H JAREK Continuous Infusions: PRN Medications: acetaminophen dextrose dextrose 50 % in water (D50W) glucagon (human recombinant) ondansetron ODT sennosides-docusate sodium sodium chloride sodium chloride ziprasidone Subjective: Patient relatively calm when seen earlier today but became more agitated in the afternoon. Family present bedside. Discussed plan with nursing, neurology, patient and family. Objective: Vitals: Temp: [36.3 C (97.4 F)-36.6 C (97.8 F)] 36.3 C (97.4 F) Pulse: [59-71] 71 Resp: [15-21] 21 BP: (110-151)/(77-90) 131/81 SpO2: [96 %-98 %] 96 % O2 Device: None (Room air) O2 Flow Rate (L/min): [0 L/min] 0 L/min Intake/Output Summary (Last 24 hours) at 07/09/2024 1522 Last data filed at 07/09/2024 0955 Gross per 24 hour Intake -- Output 600 ml Net -600 ml Physical Exam Vitals reviewed. Constitutional: General: He is not in acute distress. Appearance: He is not toxic-appearing. HENT: Head: Normocephalic. Eyes: General: Right eye: No discharge. Left eye: No discharge. Extraocular Movements: Extraocular movements intact. Cardiovascular: Rate and Rhythm: Normal rate. Heart sounds: No murmur heard. Pulmonary: Effort: Pulmonary effort is normal. Breath sounds: No wheezing or rales. Abdominal: General: Abdomen is flat. There is no distension. Musculoskeletal: Right lower leg: No edema. Left lower leg: No edema. Skin: General: Skin is warm. Findings: No rash. Neurological: Mental Status: He is alert. Mental status is at baseline. Psychiatric: Mood and Affect: Mood normal. Behavior: Behavior normal. Thought Content: Thought content normal. Labs: Recent Results (from the past 24 hours) Protime & INR Collection Time: 07/09/24 6:04 AM Result Value Ref Range Protime 12.4 9.8 - 13.2 sec Inr 1.1 0.8 - 1.1 Images: EEG Result Date: 07/08/2024 Images from the original result were not included. EEG REPORT (Routine) EEG Service Date: 07/08/2024 HISTORY: Noé Jeffery is a 58 y.o. unknown hand preference male with seizures. The study is to assist clinical diagnosis and management. CURRENT MEDICATIONS: Aricept, cymbalta, protonix, zofran odt, seroquel TECHNICAL DESCRIPTION: This is a 25 channel digital scalp EEG that was performed utilizing International 10/20 Montage System for electrode placement. Digital EEG data was collected from 25 channels. Multi-reformatted montages were used during the EEG analysis. One additional channel was used to monitor EKG during the EEG study. EEG INTERPRETATION: Duration and Quality: - Duration: 30 minutes - Quality: Poor quality for digital EEG - Artifacts: Large and well recognized Status of Patient: - Awake Background: - Anterior: Rhythmic activity with a frequency of 16-18 Hz and amplitude <10 V was seen in the bilateral anterior regions. - Posterior: Rhythmic activity with a frequency of 7-8 Hz and amplitude of 30-40 V was seen intermittently in the bilateral posterior head regions. Response to Photic Stimulation: - There was no sustained driving in response to photic stimulation at all the tested frequencies. Response to Hyperventilation: - No significant EEG background change during and after hyperventilation that lasted for 3 minutes and was performed with Poor efforts. Sleep: - Not identified/No sustained sleep pattern Significant Findings: - Sustained regional slowing: Not identified - Asymmetry: Not identified - Generalized slowing: Anteriorly dominant intermittent rhythmic; frequency 1-2 Hz; amplitude 40-60 V; seen as 3-5 second segments; occupied 20-30 % record - Epileptiform discharge(s): Not identified - Electrographic seizure(s): Not identified Events: - Clinical: Not identified - EEG: Not identified EEG CLASSIFICATION: Abnormal (Awake) - Background slow - Generalized slowing intermittent rhythmic CLINICAL CORRELATION: This study is abnormal. It shows evidences to indicate mild to moderate diffuse encephalopathy that may be correlated with a disorder involving both cortical and subcortical systems. Clinical correlation is recommended. Reji Sanon MD, PhD Neurology/Clinical Neurophysiology Micro: Microbiology Results No results found for the last 168 hours. Images from the original note were not included. [facility] Neurology General Neurology Consultation Progress Note Consult Neurology Service: [phone] Chief Complaint and Reason for Consultation: Decline in mental status Brief Summary: Noé Jeffery is a 58 y.o. year old with past medical history of hyperlipidemia, complex sleep apnea, GERD, dm 2, and major neurocognitive disorder with biomarkers (10/12/22: CSF Abeta 42 405.2 pg/mL, t-tau 1089.85 pg/ML, p-tau 121.45 pg/mL) confirmed early onset Alzheimer's disease (established in [place] October 2022), per family as well patient had a history of an epilepsy disorder from the age of 1 to 5 with complete remission. He follows up with [facility] Neurology and had underwent a heavy metal screen, [facility] analysis, MRI 2021 showing severe generalized volume loss and hippocampal volumes at the 1st percentile of his age group. Patient had been having forgetfulness and increase cognition since 2021 but per family was driving and functioning normally up until having a fall June 09 after which he started having behavioral changes and would walk outside in the called and easily angry, that time workup was negative and nothing was reported on a CT per family. And that is when his mental status took a sharp decline, Patient had presented to ED in [place] June 18 after waking up not oriented and delusional. Then June 25 he woke up again not knowing where he is delusional thinking his sister was an intruder so he was brought to [facility] and discharged later that evening. He was seen by social service assistant referred to a mental health center and per family his mental status had worsened and they felt he was being overmedicated with Benadryl. 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 The impression there was no infectious or metabolic etiology so patient was transferred to [facility] for higher level of care. Interval History: Overnight, the patient demonstrated aggressive behavior requiring restraints. Upon evaluation in the morning, the patient was calm but confused and disoriented. and sister at bedside report that he gets aggressive and agitated mostly when he wakes up from sleep. They report that the patient only had an hour so of sleep last night. Pertinent past Medical History/Family/Social History reviewed as per initial HPI. Pertinent Systems reviewed as per initial HPI, and negative as below except for mentioned above. Medications: Scheduled Meds: donepeziL, 5 mg, oral, Nightly DULoxetine, 20 mg, oral, Daily heparin (porcine), 5,000 Units, subcutaneous, Q8H JAREK melatonin, 5 mg, oral, Nightly nicotine, 1 patch, transdermal, Daily pantoprazole, 40 mg, oral, QAM AC QUEtiapine, 75 mg, oral, Nightly AND QUEtiapine, 25 mg, oral, Daily sodium chloride, 3 mL, intravenous, Q12H JAREK Continuous Infusions: PRN Meds:. acetaminophen dextrose dextrose 50 % in water (D50W) glucagon (human recombinant) ondansetron ODT sennosides-docusate sodium sodium chloride sodium chloride ziprasidone Physical Exam Vital Signs: BP 143/90 Pulse 59 Temp 36.6 C (97.8 F) (Oral) Resp 15 SpO2 98% O2 Device: None (Room air) Constitutional: Restless, well groomed, and of stated age, in bilateral violent wrist restraints Respiratory: Normal respiratory effort. Cardiac: Regular rate and rhythm. Extremities: Peripheral pulses intact, no significant edema Neurological Exam: Mental Status: Cooperative but restless. Alert and oriented to self only. Ophthalmologic: Sclera clear, no ptosis, ophthalmoscopic exam deferred Cranial Nerves I: Not assessed II: Blinks to threat bilaterally III, IV, : Able to track examiner across room, No nystagmus V: Facial sensation equal and intact B/L. VII: Symmetrical face VIII: Hearing intact bilaterally IX, X: Patient unable to follow command XI: Trapezius elevation/ strength is normal and symmetric XII: Patient unable to follow command Motor Function: Normal bulk. Normal muscle tone. No tremors. No bradykinesia or other abnormal movements. 5/5 strength throughout. Deep Tendon Reflexes: (Right, Left): Biceps 2, 2; brachioradialis 2, 2; patellae 2, 2; ankles 2, 2. No clonus elicited. Plantar response was flexor bilaterally. Sensation: Light touch intact throughout. Coordination: Unable to understand the command Gait: deferred since requiring restraints. . Other testing: rEEG 07/08: mild to moderate diffuse encephalopathy HIV 1&2: Nonreactive Ammonia: Normal Folate: Normal B12: Normal Syphilis total: <0.2 Lyme total: <0.2 Assessment: This is a 58-year-old male with past history of complex sleep apnea on CPAP, major cognitive disorder with CSF bio markers confirmed early onset Alzheimer's established in [facility] September 2022 (Dr. Lemuel Guerra) but reportedly functional at home per family, in addition to hyperlipidemia, GERD, T2DM. Patient was transferred found [facility] for higher level of care and workup of sharp decline in cognition since May 2024. Patient had presented multiple times to the ED and admitted [facility] for delusional thinking/hallucinations/agitatio n. Impression: Acute decline in mental status after a fall in May in the setting of early onset Alzheimer's disease, possibly secondary to concussion vs TBI Severe agitation and psychosis, in the setting of Ativan, Benadryl and Rexulti use, mostly at nighttime Plan: Await MRI brain with and without contrast, will require sedation Plan for LP when sedation due to acute change in mentation from baseline in past 2 weeks. Will perform routine CSF studies, autoimmune panel, and CJD workup. Avoid Ativan, Benadryl and Rexulti use. Receiving prn Geodon per primary. Melatonin 5 mg hs for sleep General neurology will follow. Arnulfo Haley MD PGY2 Neurology [facility] Seen and staffed with: Dr. Nails This patient is being followed by the Neurology Resident service. Contact attending directly during these hours: Tuesday to 7:30-8:30 A.M. to Tuesday 12-1:00 p.m. Primary Neurology service: [phone] Consult neurology service: [phone] Resident Stroke Service: [phone] If the patient belongs to the Stroke [facility] service please contact the Stroke [facility] directly. Cosigned by Zach Nails MD at 07/09/2024 11:35 PM EST Associated attestation - Zach Nails MD - 07/09/2024 11:35 PM EST Attending Attestation: I saw the patient. I participated and was physically present during the critical/jimenez portions of the service. I was directly involved in the management and treatment plan of the patient. I reviewed the resident's note and agree with the documentation. Additional Notes/Findings: Early onset Alzheimer's disease however intact ADLs and IADLs as per family prior to fall in May. Patient was driving until 3 weeks ago. Change in personality, impaired comprehension, attention, episodes of severe aggression, and paranoid behavior as per family is new and noted about 3 weeks ago, after a fall. There is a report of muscle jerks, patient appeared restless this morning. Subtle myoclonic jerks noted in right hand. Differentials at this time includes post concussion syndrome, progression of underlying neurodegenerative disease, rule out CJD, other infectious/inflammatory etiologies. Need MRI Brain brain with and without contrast and LP under sedation. Consult psychiatry for management of violent/anger outburst/paranoid behavior. Zach Nails MD. [facility] Neurology [facility] NUTRITION ADULT INITIAL EVALUATION NUTRITION ASSESSMENT: Reason to be seen: Database trigger for intake <50% of normal over the last 2 weeks Patient History: Admit Diagnosis: Patient Active Problem List Diagnosis Laceration of left ulnar artery Dementia with behavioral disturbance (CMS-HCC) Altered mental status Past Medical History: Past Medical History: Diagnosis Date GERD (gastroesophageal reflux disease) High cholesterol Perforated sigmoid colon (CMS-HCC) Past Surgical History: Past Surgical History: Procedure Laterality Date ARM EXPLORATION WITH REPAIR LACERATED ULNAR ARTERY Left 11/24/2019 Performed by Skyler Bowen MD at [facility] 3YEARS AGO COLOSTOMY CLOSURE Social/ Cognitive/ Economic: Pt in an agitated state and screaming from room. Unable to see pt as RN reports he has been in a very agitated state at the time of RD visit. Brief Clinical Summary: Pt transferred and direct admitted to [facility] as a transfer from [facility] for neurological evaluation 2/2 aggressive behavior and hostility. PMH: early-onset dementia, T2DM, GERD, and perforated colon. Biochemical Data, Medical Tests, and Procedures: Reviewed Labs: Results from last 3 days Lab Units 07/08/24 0544 07/07/24 0544 SODIUM mmol/L 142 145 POTASSIUM mmol/L 4.1 3.9 CHLORIDE mmol/L 107 107 CO2 mmol/L 29 30 BUN mg/dL 22 23 CREATININE mg/dL 0.91 1.00 CALCIUM mg/dL 8.3* 8.8 Results from last 7 days Lab Units 07/08/24 0544 07/07/24 0544 07/06/24 1026 GLUCOSE mg/dL 91 106* 102* Results from last 3 days Lab Units 07/08/24 0544 01/18/25 0544 WBC X10E9/L 4.1 4.4 HEMOGLOBIN g/dL 12.7* 13.4 HEMATOCRIT % 39.1 41.3 PLATELETS X10E9/L 154 152 MCV fL 75* 76* No data from last 3 days. No data from last 3 days. No data from last 3 days. Lab Results Component Value Date HGBA1C 5.9 05/10/2016 No results found for: IRON , TIBC , FERRITIN No results found for: IRONSAT Lab Results Component Value Date CHOL 262 (H) 05/10/2016 Lab Results Component Value Date CHDL 5.7 (H) 05/10/2016 Lab Results Component Value Date HDL 46 05/10/2016 Lab Results Component Value Date LDLCALC 184 (H) 05/10/2016 Lab Results Component Value Date TRIG 157 (H) 05/10/2016 Lab Results Component Value Date VERYLOWLIP 31 (H) 05/10/2016 Lab Results Component Value Date DDHUITOT11 526 07/08/2024 Lab Results Component Value Date FOLATE 10.2 07/08/2024 No results found for: VITD25 Comments (labs): Calcium (L, 8.3) Medications/ Parenteral: Reviewed Medications Prior to Admission Medication Sig Dispense Refill Last Dose/Taking acetaminophen (TYLENOL EXTRA STRENGTH) 500 mg tablet Take 1 tablet (500 mg total) by mouth every 6 (six) hours as needed for pain. 07/05/2024 benztropine (COGENTIN) 1 mg tablet Take 1 tablet (1 mg total) by mouth in the morning and 1 tablet (1 mg total) before bedtime. 07/05/2024 brexpiprazole (REXULTI) 2 mg tablet Take 1 tablet (2 mg total) by mouth in the morning. 07/05/2024 donepeziL (ARICEPT) 5 mg tablet Take 1 tablet (5 mg total) by mouth nightly. 07/05/2024 FLUoxetine (PROzac) 20 mg capsule Take 1 capsule (20 mg total) by mouth in the morning. 07/05/2024 haloperidoL (HALDOL) 5 mg tablet Take 1 tablet (5 mg total) by mouth in the morning and 1 tablet (5 mg total) at noon and 1 tablet (5 mg total) in the evening and 1 tablet (5 mg total) before bedtime. 07/05/2024 loperamide (IMODIUM A-D) 2 mg tablet Take 1 tablet (2 mg total) by mouth 4 (four) times a day as needed for diarrhea. 07/05/2024 LORazepam (ATIVAN) 1 mg tablet Take 1 tablet (1 mg total) by mouth every 6 (six) hours as needed for anxiety. 07/05/2024 omeprazole (PriLOSEC) 40 mg capsule Take 1 capsule (40 mg total) by mouth in the morning. 07/05/2024 aspirin 81 mg Take 1 tablet (81 mg total) by mouth daily. (Patient not taking: Reported on 05/06/2020 ) 60 tablet 0 FREESTYLE 28 gauge lancets FREESTYLE LITE METER kit FREESTYLE LITE STRIPS strip omeprazole (PriLOSEC) 20 mg capsule Take 20 mg by mouth daily. oxyCODONE-acetaminophen (PERCOCET) 5-325 mg per tablet oxycodone-acetaminophen 5 mg-325 mg tablet simvastatin (ZOCOR) 10 mg tablet Take 10 mg by mouth nightly. Current Facility-Administered Medications Medication Dose Route Frequency Provider Last Rate Last Admin acetaminophen (TYLENOL) tablet 650 mg 650 mg oral Q4H PRN Nichol Heath MD 650 mg at 07/07/24 1333 dextrose (GLUTOSE) 40 % gel 15 g 15 g oral PRN Nichol Heath MD dextrose 50 % in water (D50W) 50% solution 25 mL 25 mL intravenous PRN Nichol Heath MD donepeziL (ARICEPT) tablet 5 mg 5 mg oral Nightly Nichol Heath MD 5 mg at 07/08/24 2216 DULoxetine (CYMBALTA) DR capsule 20 mg 20 mg oral Daily Nichol Heath MD 20 mg at 07/09/24 0956 glucagon HCL injection 1 mg 1 mg intramuscular PRN Nichol Heath MD heparin (porcine) injection 5,000 Units 5,000 Units subcutaneous Q8H JAREK Nichol Heath MD 5,000 Units at 07/09/24 0653 melatonin (CIRCADIN) tablet 5 mg 5 mg oral Nightly Cecile Henry MD 5 mg at 07/08/24 2217 nicotine (NICODERM CQ) 21 mg/24 hr 1 patch 1 patch transdermal Daily Nichol Heath MD ondansetron ODT (ZOFRAN ODT) disintegrating tablet 4 mg 4 mg buccal Q8H PRN Nichol Heath MD pantoprazole (PROTONIX) EC tablet 40 mg 40 mg oral QAM AC Nichol Heath MD 40 mg at 07/09/24 0653 QUEtiapine (SEROquel) tablet 75 mg 75 mg oral Nightly Nichol Heath MD 75 mg at 07/08/24 2216 And QUEtiapine (SEROquel) tablet 25 mg 25 mg oral Daily Nichol Heath MD 25 mg at 07/09/24 0956 sennosides-docusate sodium (SENOKOT-S) 8.6-50 mg 1 tablet 1 tablet oral Q12H PRN Nichol Heath MD sodium chloride 0.9 % flush 3 mL 3 mL intravenous PRN Nichol Heath MD sodium chloride 0.9 % flush 3 mL 3 mL intravenous Q12H JAREK Nichol Heath MD 3 mL at 07/09/24 0958 sodium chloride 0.9 % flush bag 25 mL intravenous PRN Nichol Heath MD ziprasidone (GEODON) injection 20 mg 20 mg intramuscular Q12H PRN Nichol Heath MD 20 mg at 07/08/24 1849 Nutrition Focused Physical Findings Unable to assess Extremities, Muscles, and Bones A. Muscle Loss: Unable to assess B. Loss of Subcutaneous Fat: Unable to assess Skin (per nursing flow sheets): Skin Color: [place]; Pale (07/08/24 08) Skin Temp: Warm; Dry (07/08/24 08) Overall Appearance: Unable to assess Intake/ Output Last 24 hrs: Intake/Output Summary (Last 24 hours) at 07/09/2024 1029 Last data filed at 07/09/2024 0955 Gross per 24 hour Intake -- Output 600 ml Net -600 ml Food/Nutrition Related History: Diet History: Unable to obtain. Per RN nursing screen, pt eating <50% of normal intake x 2 weeks. Nutrition Knowledge/Beliefs/Attitudes: Unable to obtain Allergies: Allergies Allergen Reactions Diphenhydramine Abnormal Behavior Diet/ Nutrition Order Review: Dietary Orders (From admission, onward) Start Ordered 07/09/24 0001 Adult diet NPO; Except medications Diet effective midnight Question Answer Comment Diet Type: NPO NPO Except: Except medications 07/08/24 9057 Diet Intakes: Percent Meals Eaten (%): 100 (07/06/241999) Per RN, she has only been with pt for one meal and he ate 75%. PO intake not documented on RN flowsheets minus one meal. Anthropometrics: Ht Readings from Last 1 Encounters: 06/24/24 165.1 cm (5' 5 ) Wt Readings from Last 20 Encounters: 06/24/24 83.9 kg (185 lb) 01/11/22 81.6 kg (180 lb) 05/06/20 96.6 kg (213 lb) 01/25/20 95.7 kg (211 lb) 11/24/19 90.7 kg (200 lb) 11/24/19 90.7 kg (200 lb) 08/08/19 93.9 kg (207 lb) 09/12/18 93.9 kg (207 lb) There were no vitals filed for this visit. Admit Weight: 83.9 kg (Unknown, 06/24) Usual Body Weight: Unknown as no wt on file. [place] Body Weight: 61.8 kg Percent [place] Body Weight: 136 Weight Changes: No wt's on file to assess Body Mass Index: 30.7 kg^m2 BMI Category: Obese (> or = 30.0) Note: Calculations based on previous wt and ht on file from 06/24 07/22 no anthropometrics on file for this admission. Comparative Standards: Estimated Energy Needs: 4690-5694 kcals daily. Method and weight used: 25-32 kcal/kg IBW Estimated Protein Needs: 74-124 grams daily. Method and weight used: 1.2-2g protein/kg IBW Estimated Fluid Needs: 2252-0329 ml daily. Method weight used: 1 ml/kcal Comments: floor needs Malnutrition Status: Malnutrition Present: No NUTRITION DIAGNOSIS: Intake Diagnosis: Predicted suboptimal nutrient intake (NI 5.11.1) related to self monitoring deficit as evidenced by nursing screen reporting pt eating <50% of normal intake x 2 weeks. NUTRITION INTERVENTIONS: Meals and Snacks: Continue per [employer] and medical team recommendations Supplements: Will add on supplements based on RN screen. Can d/c if pt eating well consistently in the future. Add on Glucerna, TID to provide 220 kcal and 10 g protein per serving. Coordination of Care: Spoke with RNAnika RECOMMENDATIONS: Document I/O's, Document PO intake, Document Supplement Intake, Obtain Daily Weight's GOAL(S): Meet 100% estimated nutrition needs NUTRITION MONITORING AND EVALUATION: Weight, labs, PO intake, GI function, I/Os, POC. Merary Hunt, MS, RD, LD, CDN Clinical Dietitian Images from the original note were not included. [facility] 07/08/2024 Patient Name: Noé Jeffery : 1965 Problem List: Principal Problem: Dementia with behavioral disturbance (CMS-HCC) Active Problems: Altered mental status Assessment Rapid onset Dementia with behavioral disturbances Colloid cyst stable on MRI per report History of hallucinations GERD Hypercholesterolemia History of perforated sigmoid colon status post surgical repair Plan Continues on Seroquel and Aricept Requiring non-violent restraints due to history of agitation and violent outbursts especially upon waking from sleep Calm when seen today though he is restless Discuss with neurology. Planning on MR brain and lumbar puncture under sedation P.r.n. Geodon EKG pending EEG completed, no epileptic focus Avoid Benadryl as patient develops agitation aggressive behavior Neurology following DVT prophylaxis: Heparin Code Status: Full Plan of care discussed with patient and family at bedside Scheduled Medications: donepeziL, 5 mg, oral, Nightly DULoxetine, 20 mg, oral, Daily heparin (porcine), 5,000 Units, subcutaneous, Q8H JAREK melatonin, 5 mg, oral, Nightly nicotine, 1 patch, transdermal, Daily pantoprazole, 40 mg, oral, QAM AC QUEtiapine, 75 mg, oral, Nightly AND QUEtiapine, 25 mg, oral, Daily sodium chloride, 3 mL, intravenous, Q12H JAREK Continuous Infusions: PRN Medications: acetaminophen dextrose dextrose 50 % in water (D50W) glucagon (human recombinant) ondansetron ODT sennosides-docusate sodium sodium chloride sodium chloride ziprasidone Subjective: Patient feels restless and would like to leave the hospital when possible. Family present bedside. Discussed care plan. Objective: Vitals: Temp: [36.6 C (97.8 F)-37.1 C (98.7 F)] 36.8 C (98.2 F) Pulse: [58-71] 58 Resp: [16-18] 16 BP: (119-130)/(58-104) 124/91 SpO2: [92 %-100 %] 96 % O2 Device: None (Room air) O2 Flow Rate (L/min): [0 L/min] 0 L/min Intake/Output Summary (Last 24 hours) at 07/08/2024 1436 Last data filed at 07/07/2024 2100 Gross per 24 hour Intake 3 ml Output -- Net 3 ml Physical Exam Vitals reviewed. Constitutional: General: He is not in acute distress. Appearance: He is not toxic-appearing. HENT: Head: Normocephalic. Eyes: General: Right eye: No discharge. Left eye: No discharge. Extraocular Movements: Extraocular movements intact. Cardiovascular: Rate and Rhythm: Normal rate. Heart sounds: No murmur heard. Pulmonary: Effort: Pulmonary effort is normal. Breath sounds: No wheezing or rales. Abdominal: General: Abdomen is flat. There is no distension. Musculoskeletal: Right lower leg: No edema. Left lower leg: No edema. Skin: General: Skin is warm. Findings: No rash. Neurological: General: No focal deficit present. Mental Status: He is alert. He is disoriented. Labs: Recent Results (from the past 24 hours) Basic Metabolic Panel Collection Time: 07/08/24 5:44 AM Result Value Ref Range Sodium 142 134 - 146 mmol/L Potassium, Bld 4.1 3.5 - 5.0 mmol/L Chloride 107 98 - 109 mmol/L CO2 29 22 - 32 mmol/L Anion gap 6 5 - 15 mmol/L BUN 22 5 - 23 mg/dL Creatinine 0.91 0.60 - 1.30 mg/dL Glucose 91 65 - 99 mg/dL Calcium 8.3 (L) 8.5 - 10.5 mg/dL eGFR (CKD-EPI)non-race dependent >90 >59 ml/min/1.73sq.m CBC without diff Collection Time: 07/08/24 5:44 AM Result Value Ref Range White Blood Cells 4.1 4.0 - 11.0 X10E9/L RBC count 5.19 4.10 - 5.70 X10E12/L Hemoglobin 12.7 (L) 13.0 - 17.0 g/dL Hematocrit 39.1 39 - 49 % MCV 75 (L) 80 - 100 fL MCH 24.5 (L) 27 - 34 pg MCHC 32.5 32 - 36 g/dL RDW 15.6 (H) 11.5 - 15.0 % Platelets 154 150 - 450 X10E9/L MPV 8.6 7 - 12 fL Vitamin B12 Collection Time: 07/08/24 5:44 AM Result Value Ref Range Vitamin B-12 526 180 - 914 pg/mL Folate Collection Time: 07/08/24 5:44 AM Result Value Ref Range Folate 10.2 >5.8 ng/mL Ammonia Collection Time: 07/08/24 5:44 AM Result Value Ref Range Ammonia 40 18 - 72 umol/L HIV 1&2 AB/AG Screen (P24 AG) Collection Time: 07/08/24 5:44 AM Result Value Ref Range HIV 1&2 AB/AG Non-Reactive Non-Reactive^Non-Reactive Images: EEG Result Date: 07/08/2024 Images from the original result were not included. EEG REPORT (Routine) EEG Service Date: 07/08/2024 HISTORY: Noé Jeffery is a 58 y.o. unknown hand preference male with seizures. The study is to assist clinical diagnosis and management. CURRENT MEDICATIONS: Aricept, cymbalta, protonix, zofran odt, seroquel TECHNICAL DESCRIPTION: This is a 25 channel digital scalp EEG that was performed utilizing International 10/20 Montage System for electrode placement. Digital EEG data was collected from 25 channels. Multi-reformatted montages were used during the EEG analysis. One additional channel was used to monitor EKG during the EEG study. EEG INTERPRETATION: Duration and Quality: - Duration: 30 minutes - Quality: Poor quality for digital EEG - Artifacts: Large and well recognized Status of Patient: - Awake Background: - Anterior: Rhythmic activity with a frequency of 16-18 Hz and amplitude <10 V was seen in the bilateral anterior regions. - Posterior: Rhythmic activity with a frequency of 7-8 Hz and amplitude of 30-40 V was seen intermittently in the bilateral posterior head regions. Response to Photic Stimulation: - There was no sustained driving in response to photic stimulation at all the tested frequencies. Response to Hyperventilation: - No significant EEG background change during and after hyperventilation that lasted for 3 minutes and was performed with Poor efforts. Sleep: - Not identified/No sustained sleep pattern Significant Findings: - Sustained regional slowing: Not identified - Asymmetry: Not identified - Generalized slowing: Anteriorly dominant intermittent rhythmic; frequency 1-2 Hz; amplitude 40-60 V; seen as 3-5 second segments; occupied 20-30 % record - Epileptiform discharge(s): Not identified - Electrographic seizure(s): Not identified Events: - Clinical: Not identified - EEG: Not identified EEG CLASSIFICATION: Abnormal (Awake) - Background slow - Generalized slowing intermittent rhythmic CLINICAL CORRELATION: This study is abnormal. It shows evidences to indicate mild to moderate diffuse encephalopathy that may be correlated with a disorder involving both cortical and subcortical systems. Clinical correlation is recommended. Reji Sanon MD, PhD Neurology/Clinical Neurophysiology CT brain without contrast Result Date: 07/07/2024 CT BRAIN WO CONT CLINICAL HISTORY: Transient alteration of awareness. Early onset Alzheimer's. COMPARISON: No relevant prior studies available. TECHNIQUE: CT brain without intravenous contrast. Automated exposure control was utilized. All CT scans at this facility use dose modulation, iterative reconstruction, and/or weight based dosing when appropriate to reduce radiation dose to as low as reasonably achievable. FINDINGS: No acute intracranial hemorrhage, mass effect, shift of midline structures, or abnormal extra-axial fluid collection. Moderate overall brain volume loss, greater than expected for patient age. Patchy areas of hypoattenuation within the supratentorial white matter are nonspecific but most commonly associated with chronic microvascular ischemic change. Prominent appearance of the supratentorial ventricular system likely secondary to periventricular volume loss. Basal cisterns are patent. Partial empty sella. Slight asymmetric increased density of the left ICA terminus and left M1 segment middle cerebral artery. Orbits are symmetric. No depressed or displaced calvarial fracture. Prominent periapical lucency of the posterior most right maxillary molar. Mild mucosal thickening of the ethmoid air cells and minimal mucosal thickening of the lateral maxillary alveolar recesses. Trace fluid within the inferior left mastoid air cells. Presumed cerumen within the bilateral external auditory canals. IMPRESSION: * No acute intracranial hemorrhage, mass effect, or evidence of acute large vessel territorial ischemia. * Slight asymmetric increased density of the left ICA terminus and left M1 segment middle cerebral artery which is likely artifactual. If there is concern for acute thrombus, CTA can be considered. * Moderate overall brain volume loss, greater than expected for patient age. This report contains a significant result and/or recommendation, which requires the attention of the licensed caregiver responsible for this patient. Therefore, I specifically designated this report to be telephoned by the radiology department. Finalized by Delonte Johnson MD on 07/07/2024 9:19 AM EEG Result Date: 07/07/2024 Images from the original result were not included. EEG REPORT (Routine) EEG Service Date: 07/06/2024 HISTORY: Noé Jeffery is a 58 y.o. unknown hand preference male with seizures. The study is to assist clinical diagnosis and management. CURRENT MEDICATIONS: Tylenol, Glutose, D5W, D50W, Aricept, Cymbalta, Porcine, Nicoderm, Zofran, Ptotonix, Seroquel, Senokot, Geodon TECHNICAL DESCRIPTION: This is a 25 channel digital scalp EEG that was performed utilizing International 10/20 Montage System for electrode placement. Digital EEG data was collected from 25 channels. Multi-reformatted montages were used during the EEG analysis. One additional channel was used to monitor EKG during the EEG study. EEG INTERPRETATION: Duration and Quality: - Duration: 17 minutes - Quality: Fair quality for digital EEG - Artifacts: Large and well recognized Status of Patient: - Awake Background: - Anterior: Rhythmic activity with a frequency of 18-20 Hz and amplitude 7-10 V was seen in the bilateral anterior regions. - Posterior: Well-defined, sustained, and symmetrical posterior dominant rhythm with a frequency of 7-8 Hz and amplitude of 30-40 V in the bilateral occipital regions. This activity demonstrated waxing and waning in response to eye closing and opening. Response to Photic Stimulation: - Not performed due to clinical condition/limitation Response to Hyperventilation: - Not performed due to clinical condition/limitation Sleep: - Not identified/No sustained sleep pattern Significant Findings: - Sustained regional slowing: Not identified - Asymmetry: Not identified - Generalized slowing: Not identified - Epileptiform discharge(s): Not identified - Electrographic seizure(s): Not identified Events: - Clinical: Not identified - EEG: Not identified EEG CLASSIFICATION: Abnormal (Awake) - Background slow CLINICAL CORRELATION: This study is abnormal. It shows evidences to indicate possible mild diffuse encephalopathy that may be correlated with a functional etiology. Clinical correlation is recommended. Reji Sanon MD, PhD Neurology/Clinical Neurophysiology Micro: Microbiology Results No results found for the last 168 hours. Images from the original note were not included. [facility] Neurology General Neurology Consultation Progress Note Consult Neurology Service: [phone] Chief Complaint and Reason for Consultation: Decline in mental status Brief Summary: Noé Jeffery is a 58 y.o. 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 He follows up with [facility] Neurology and had underwent a heavy metal screen, [facility] analysis, MRI 2021 showing severe generalized volume loss and hippocampal volumes at the 1st percentile of his age group. Patient had been having forgetfulness and increase cognition since 2021 but per family was driving and functioning normally up until having a fall June 09 after which he started having behavioral changes and would walk outside in the called and easily angry, that time workup was negative and nothing was reported on a CT per family. And that is when his mental status took a sharp decline, Patient had presented to ED in [place] June 18 after waking up not oriented and delusional. Then June 25 he woke up again not knowing where he is delusional thinking his sister was an intruder so he was brought to [facility] and discharged later that evening. He was seen by social service assistant referred to a mental health center and per family his mental status had worsened and they felt he was being overmedicated with Benadryl. 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 The impression there was no infectious or metabolic etiology so patient was transferred to [facility] for higher level of care. Interval History: Overnight he remained agitated and aggressive requiring restraints. Today, he remains confused, disoriented and restless. He has no specific complaints but does not understand why he is in the hospital. Mother and report that prior to fall in May, he was driving, able to shop on his own, able to hold appropriate conversations and function. Over the past 2 weeks, he is confused, restless, agitated mostly once awakened. There was some mention of PTSD per at OSH which she is concerned of since patient was in the [employer]. Mother reports night terrors in childhood. He was reportedly on no medication at home. Pertinent past Medical History/Family/Social History reviewed as per initial HPI. Pertinent Systems reviewed as per initial HPI, and negative as below except for mentioned above. Medications: Scheduled Meds: donepeziL, 5 mg, oral, Nightly DULoxetine, 20 mg, oral, Daily heparin (porcine), 5,000 Units, subcutaneous, Q8H JAREK nicotine, 1 patch, transdermal, Daily pantoprazole, 40 mg, oral, QAM AC QUEtiapine, 75 mg, oral, Nightly AND QUEtiapine, 25 mg, oral, Daily sodium chloride, 3 mL, intravenous, Q12H JAREK Continuous Infusions: PRN Meds:. acetaminophen dextrose dextrose 50 % in water (D50W) glucagon (human recombinant) ondansetron ODT sennosides-docusate sodium sodium chloride sodium chloride ziprasidone Physical Exam Vital Signs: BP 123/58 Pulse 59 Temp 36.8 C (98.2 F) (Oral) Resp 16 SpO2 100% O2 Device: None (Room air) Constitutional: Restless, well groomed, and of stated age, in bilateral violent wrist restraints Respiratory: Normal respiratory effort. Cardiac: Regular rate and rhythm. Extremities: Peripheral pulses intact, no significant edema Neurological Exam: Mental Status: Cooperative but restless. Alert and oriented to self only. Ophthalmologic: Sclera clear, no ptosis, ophthalmoscopic exam deferred Cranial Nerves I: Not assessed II: Blinks to threat bilaterally III, IV, : Able to track examiner across room, No nystagmus V: Facial sensation equal and intact B/L. VII: Symmetrical face VIII: Hearing intact bilaterally IX, X: Patient unable to follow command XI: Trapezius elevation/ strength is normal and symmetric XII: Patient unable to follow command Motor Function: Normal bulk. Normal muscle tone. No tremors. No bradykinesia or other abnormal movements. 5/5 strength throughout. Deep Tendon Reflexes: (Right, Left): Biceps 2, 2; brachioradialis 2, 2; patellae 2, 2; ankles 2, 2. No clonus elicited. Plantar response was flexor bilaterally. Sensation: Light touch intact throughout. Coordination: Unable to understand the command Gait: deferred since requiring restraints. . Other testing: rEEG 07/08: mild to moderate diffuse encephalopathy Assessment: This is a 58-year-old male with past history of complex sleep apnea on CPAP, major cognitive disorder with CSF bio markers confirmed early onset Alzheimer's established in [facility] September 2022 (Dr. Lemuel Guerra) but reportedly functional at home per family, in addition to hyperlipidemia, GERD, T2DM. Patient was transferred found [facility] for higher level of care and workup of sharp decline in cognition since May 2024. Patient had presented multiple times to the ED and admitted [facility] for delusional thinking/hallucinations/agitatio n. Impression: Acute decline in mental status after a fall in May in the setting of early onset Alzheimer's disease, possibly secondary to concussion vs TBI Severe agitation and psychosis, in the setting of Ativan, Benadryl and Rexulti use, mostly at nighttime Plan: Await MRI brain with and without contrast, will require sedation Follow up Lyme, VDRL, HIV, INR Plan for LP when sedation due to acute change in mentation from baseline in past 2 weeks. Will perform routine CSF studies, autoimmune panel, and CJD workup. Avoid Ativan, Benadryl and Rexulti use. Receiving prn Geodon per primary. Melatonin 5 mg hs for sleep General neurology will follow. Cecile Henry MD PGY-3 Neurology Resident [facility] Seen and staffed with: Dr. Nails This patient is being followed by the Neurology Resident service. Contact attending directly during these hours: Tuesday to 7:30-8:30 A.M. to Tuesday 12-1:00 p.m. Primary Neurology service: [phone] Consult neurology service: [phone] Resident Stroke Service: [phone] If the patient belongs to the Stroke ASHLEE service please contact the Stroke ASHLEE directly. Cosigned by Zach Nails MD at 07/08/2024 8:48 PM EST Associated attestation - Zach Nails MD - 07/08/2024 8:48 PM EST Attending Attestation: I saw the patient. I participated and was physically present during the critical/jimenez portions of the service. I was directly involved in the management and treatment plan of the patient. I reviewed the resident's note and agree with the documentation. Additional Notes/Findings: Early onset Alzheimer's disease however intact ADLs and IADLs as per family prior to fall in May. Patient was driving until 2 weeks ago. Change in personality, impaired comprehension, attention, episodes of severe aggression, and paranoid behavior as per family is new and noted about 3 weeks ago, after a fall. There is a report of muscle jerks, patient appeared very restless during this morning. Differentials at this time includes post concussion syndrome, progression of underlying neurodegenerative disease, rule out CJD, other infectious/inflammatory etiologies. Need MRI Brain brain with and without contrast and LP under sedation. Consult psychiatry for management of violent/anger outburst/paranoid behavior. Zach Nails MD. [employer] of Neurology [facility] Images from the original note were not included. [facility] Neurology General Neurology Consultation Progress Note Consult Neurology Service: [phone] Chief Complaint and Reason for Consultation: Decline in mental status Brief Summary: Noé Jeffery is a 58 y.o. 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 He follows up with [facility] Neurology and had underwent a heavy metal screen, [facility] analysis, MRI 2021 showing severe generalized volume loss and hippocampal volumes at the 1st percentile of his age group. Patient had been having forgetfulness and increase cognition since 2021 but per family was driving and functioning normally up until having a fall June 09 after which he started having behavioral changes and would walk outside in the called and easily angry, that time workup was negative and nothing was reported on a CT per family. And that is when his mental status took a sharp decline, Patient had presented to ED in [place] June 18 after waking up not oriented and delusional. Then June 25 he woke up again not knowing where he is delusional thinking his sister was an intruder so he was brought to [facility] and discharged later that evening. He was seen by social service assistant referred to a mental health center and per family his mental status had worsened and they felt he was being overmedicated with Benadryl. 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 The impression there was no infectious or metabolic etiology so patient was transferred to [facility] for higher level of care. Interval History: Patient was seen and evaluated at bedside this morning. He appeared significantly more calm and participated in neurological examination. He was oriented to self but unable to answer any other questions. He is able to follow most commands. at bedside reports that in the patient had the fall in May, she noticed a stare on the patient's face. Also noted some twitching movements. Pertinent past Medical History/Family/Social History reviewed as per initial HPI. Pertinent Systems reviewed as per initial HPI, and negative as below except for mentioned above. Medications: Scheduled Meds: donepeziL, 5 mg, oral, Nightly DULoxetine, 20 mg, oral, Daily heparin (porcine), 5,000 Units, subcutaneous, Q8H JAREK nicotine, 1 patch, transdermal, Daily pantoprazole, 40 mg, oral, QAM AC QUEtiapine, 75 mg, oral, Nightly AND QUEtiapine, 25 mg, oral, Daily sodium chloride, 3 mL, intravenous, Q12H REPLACED BY [facility] Continuous Infusions: PRN Meds:. acetaminophen dextrose dextrose 50 % in water (D50W) glucagon (human recombinant) ondansetron ODT sennosides-docusate sodium sodium chloride sodium chloride ziprasidone Physical Exam Vital Signs: BP 119/80 Pulse 71 Temp 36.6 C (97.8 F) (Oral) Resp 18 SpO2 92% O2 Device: None (Room air) Constitutional: Appears in no acute distress, well groomed, and of stated age. Respiratory: Normal respiratory effort. Cardiac: Regular rate and rhythm. Extremities: Peripheral pulses intact, no significant edema Neurological Exam: Mental Status: Pleasant and cooperative. Alert and oriented to self only. Ophthalmologic: Sclera clear, no ptosis, ophthalmoscopic exam deferred Cranial Nerves I: Not assessed II: Blinks to threat bilaterally III, IV, : Able to track examiner across room, No nystagmus V: Facial sensation equal and intact B/L. VII: Symmetrical face VIII: Hearing intact bilaterally IX, X: Patient unable to follow command XI: Trapezius elevation/ strength is normal and symmetric XII: Patient unable to follow command Motor Function: Normal bulk. Normal muscle tone. No tremors. No bradykinesia or other abnormal movements. Able to antigravity bilateral upper and lower extremities Deep Tendon Reflexes: (Right, Left): Biceps 2, 2; brachioradialis 2, 2; patellae 2, 2; ankles 2, 2. No clonus elicited. Plantar response was flexor bilaterally. Sensation: Light touch intact throughout. Coordination: Unable to understand the command Gait: Able to rise from seated position . Normal gait initiation and appears stable. Assessment: This is a 58-year-old male with past history of complex sleep apnea on CPAP, major cognitive disorder with bio markers confirmed early onset Alzheimer's established in [facility] October 2022 in addition to hyperlipidemia, GERD, dm 2. Patient was transferred found [facility] for higher level of care and workup of sharp decline in cognition since May 2024. Patient had presented multiple times to the ED and admitted [facility] for delusional thinking/hallucinations/agitatio n. Impression: Acute decline in mental status after a fall in May in the setting of early onset Alzheimer's disease, likely secondary to concussion vs TBI Severe agitation and psychosis, in the setting of Ativan, Benadryl and Rexulti use, now resolved Plan: Await MRI brain with and without contrast. Patient is agreeable to routine EEG now. Avoid Ativan, Benadryl and Rexulti use General neurology will follow. Arnulfo Haley MD PGY2 Neurology [facility] Seen and staffed with: Dr. Nails This patient is being followed by the Neurology Resident service. Contact attending directly during these hours: Tuesday to 7:30-8:30 A.M. to Tuesday 12-1:00 p.m. Primary Neurology service: [phone] Consult neurology service: [phone] Resident Stroke Service: [phone] If the patient belongs to the Stroke ASHLEE service please contact the Stroke ASHLEE directly. Cosigned by Zach Nails MD at 07/07/2024 11:37 PM EST Associated attestation - Zach Nails MD - 07/07/2024 11:37 PM EST Attending Attestation: I saw the patient. I participated and was physically present during the critical/jimenez portions of the service. I was directly involved in the management and treatment plan of the patient. I reviewed the resident's note and agree with the documentation. Additional Notes/Findings: Patient was calm during rounds, more cooperative. Likely had paradoxical agitation with benzodiazepines, akathisia/neuropsychiatric symptoms with benadryl. reports noticing blank stare and leg jerk after a fall, history of childhood epilepsy (unclear type), obtain routine EEG. Zach Nails MD. [employer] of Neurology [facility] [employer] [facility] Images from the original note were not included. [facility] 07[facility]24 Patient Name: Noé Jeffery : 1965 Problem List: Principal Problem: Dementia with behavioral disturbance ([facility]) Active Problems: Altered mental status Assessment Rapid onset Dementia with behavioral disturbances Colloid cyst stable on MRI per report History of hallucinations GERD Hypercholesterolemia History of perforated sigmoid colon status post surgical repair Plan Continues on Seroquel and Aricept P.r.n. Geodon EKG pending MR brain pending Patient could not tolerate entirety of EEG but from 17 minute duration there was no seizure activity seen Avoid Benadryl as patient develops agitation aggressive behavior Neurology following DVT prophylaxis: Heparin Code Status: Full Plan of care discussed with patient and family at bedside Scheduled Medications: donepeziL, 5 mg, oral, Nightly DULoxetine, 20 mg, oral, Daily heparin (porcine), 5,000 Units, subcutaneous, Q8H JAREK nicotine, 1 patch, transdermal, Daily pantoprazole, 40 mg, oral, QAM AC QUEtiapine, 75 mg, oral, Nightly AND QUEtiapine, 25 mg, oral, Daily sodium chloride, 3 mL, intravenous, Q12H JAREK Continuous Infusions: PRN Medications: acetaminophen dextrose dextrose 50 % in water (D50W) glucagon (human recombinant) ondansetron ODT sennosides-docusate sodium sodium chloride sodium chloride ziprasidone Subjective: No events overnight. Patient is calm and has no questions. Discussed care plan with family and patient. Objective: Vitals: Temp: [36.3 C (97.4 F)-36.8 C (98.3 F)] 36.3 C (97.4 F) Pulse: [66-82] 73 Resp: [16-20] 18 BP: (107-139)/(55-89) 107/55 SpO2: [95 %-97 %] 96 % O2 Device: None (Room air) O2 Flow Rate (L/min): [0 L/min] 0 L/min No intake or output data in the 24 hours ending 07/07/24 1540 Physical Exam Vitals reviewed. Constitutional: General: He is not in acute distress. Appearance: He is not toxic-appearing. HENT: Head: Normocephalic. Eyes: General: Right eye: No discharge. Left eye: No discharge. Extraocular Movements: Extraocular movements intact. Cardiovascular: Rate and Rhythm: Normal rate. Heart sounds: No murmur heard. Pulmonary: Effort: Pulmonary effort is normal. Breath sounds: No wheezing or rales. Abdominal: General: Abdomen is flat. There is no distension. Musculoskeletal: Right lower leg: No edema. Left lower leg: No edema. Skin: General: Skin is warm. Findings: No rash. Neurological: Mental Status: He is alert. Mental status is at baseline. He is disoriented. Labs: Recent Results (from the past 24 hours) Basic Metabolic Panel Collection Time: 07/07/24 5:44 AM Result Value Ref Range Sodium 145 134 - 146 mmol/L Potassium, Bld 3.9 3.5 - 5.0 mmol/L Chloride 107 98 - 109 mmol/L CO2 30 22 - 32 mmol/L Anion gap 8 5 - 15 mmol/L BUN 23 5 - 23 mg/dL Creatinine 1.00 0.60 - 1.30 mg/dL Glucose 106 (H) 65 - 99 mg/dL Calcium 8.8 8.5 - 10.5 mg/dL eGFR (CKD-EPI)non-race dependent 87 >59 ml/min/1.73sq.m CBC without diff Collection Time: 07/07/24 5:44 AM Result Value Ref Range White Blood Cells 4.4 4.0 - 11.0 X10E9/L RBC count 5.45 4.10 - 5.70 X10E12/L Hemoglobin 13.4 13.0 - 17.0 g/dL Hematocrit 41.3 39 - 49 % MCV 76 (L) 80 - 100 fL MCH 24.7 (L) 27 - 34 pg MCHC 32.5 32 - 36 g/dL RDW 15.3 (H) 11.5 - 15.0 % Platelets 152 150 - 450 X10E9/L MPV 7.8 7 - 12 fL Images: CT brain without contrast Result Date: 07/07/2024 CT BRAIN WO CONT CLINICAL HISTORY: Transient alteration of awareness. Early onset Alzheimer's. COMPARISON: No relevant prior studies available. TECHNIQUE: CT brain without intravenous contrast. Automated exposure control was utilized. All CT scans at this facility use dose modulation, iterative reconstruction, and/or weight based dosing when appropriate to reduce radiation dose to as low as reasonably achievable. FINDINGS: No acute intracranial hemorrhage, mass effect, shift of midline structures, or abnormal extra-axial fluid collection. Moderate overall brain volume loss, greater than expected for patient age. Patchy areas of hypoattenuation within the supratentorial white matter are nonspecific but most commonly associated with chronic microvascular ischemic change. Prominent appearance of the supratentorial ventricular system likely secondary to periventricular volume loss. Basal cisterns are patent. Partial empty sella. Slight asymmetric increased density of the left ICA terminus and left M1 segment middle cerebral artery. Orbits are symmetric. No depressed or displaced calvarial fracture. Prominent periapical lucency of the posterior most right maxillary molar. Mild mucosal thickening of the ethmoid air cells and minimal mucosal thickening of the lateral maxillary alveolar recesses. Trace fluid within the inferior left mastoid air cells. Presumed cerumen within the bilateral external auditory canals. IMPRESSION: * No acute intracranial hemorrhage, mass effect, or evidence of acute large vessel territorial ischemia. * Slight asymmetric increased density of the left ICA terminus and left M1 segment middle cerebral artery which is likely artifactual. If there is concern for acute thrombus, CTA can be considered. * Moderate overall brain volume loss, greater than expected for patient age. This report contains a significant result and/or recommendation, which requires the attention of the licensed caregiver responsible for this patient. Therefore, I specifically designated this report to be telephoned by the radiology department. Finalized by Delonte Jonhson MD on 07/07/2024 9:19 AM EEG Result Date: 07/07/2024 Images from the original result were not included. EEG REPORT (Routine) EEG Service Date: 07/06/2024 HISTORY: Noé Jeffery is a 58 y.o. unknown hand preference male with seizures. The study is to assist clinical diagnosis and management. CURRENT MEDICATIONS: Tylenol, Glutose, D5W, D50W, Aricept, Cymbalta, Porcine, Nicoderm, Zofran, Ptotonix, Seroquel, Senokot, Geodon TECHNICAL DESCRIPTION: This is a 25 channel digital scalp EEG that was performed utilizing International 10/20 Montage System for electrode placement. Digital EEG data was collected from 25 channels. Multi-reformatted montages were used during the EEG analysis. One additional channel was used to monitor EKG during the EEG study. EEG INTERPRETATION: Duration and Quality: - Duration: 17 minutes - Quality: Fair quality for digital EEG - Artifacts: Large and well recognized Status of Patient: - Awake Background: - Anterior: Rhythmic activity with a frequency of 18-20 Hz and amplitude 7-10 V was seen in the bilateral anterior regions. - Posterior: Well-defined, sustained, and symmetrical posterior dominant rhythm with a frequency of 7-8 Hz and amplitude of 30-40 V in the bilateral occipital regions. This activity demonstrated waxing and waning in response to eye closing and opening. Response to Photic Stimulation: - Not performed due to clinical condition/limitation Response to Hyperventilation: - Not performed due to clinical condition/limitation Sleep: - Not identified/No sustained sleep pattern Significant Findings: - Sustained regional slowing: Not identified - Asymmetry: Not identified - Generalized slowing: Not identified - Epileptiform discharge(s): Not identified - Electrographic seizure(s): Not identified Events: - Clinical: Not identified - EEG: Not identified EEG CLASSIFICATION: Abnormal (Awake) - Background slow CLINICAL CORRELATION: This study is abnormal. It shows evidences to indicate possible mild diffuse encephalopathy that may be correlated with a functional etiology. Clinical correlation is recommended. Reji Sanon MD, PhD Neurology/Clinical Neurophysiology Micro: Microbiology Results No results found for the last 168 hours. documented in this encounter [id number] 07-21-2024 Plan of care note Problem: Safety Goal: Patient will be injury free during hospitalization Description: INTERVENTIONS: 1. Assess patient's risk for falls and implement fall prevention plan of care per policy 2. Provide and maintain a safe environment 3. Proper use of double Identifiers 4. Medication administration using the 5 rights 5. Hand hygiene 6. Specimens are labeled at the bedside 7. Instruct patient/ patient passenger relations representative about use of safety devices 8. Include patient/ patient passenger relations representative in decisions related to safety Outcome: Progressing Note: Evaluation of progress towards goal: pt remains free from injury Problem: Knowledge Deficit Goal: Patient/patient passenger relations representative demonstrates understanding of disease process, treatment plan, medications, and discharge instructions Description: INTERVENTIONS 1. Complete learning assessment and assess knowledge base 2. Provide teaching at level of understanding 3. Provide teaching via preferred learning method(s) Outcome: Progressing Note: Evaluation of progress towards goal: pt understands treatment plan Problem: Discharge Planning Goal: Discharge to post-acute care, other facility, or home with appropriate resources Description: Patient's goal is: INTERVENTIONS 1. Conduct assessment to determine patient/family and health care team treatment goals, and need for post-acute services based on payer coverage, community resources, and patient preferences, and barriers to discharge 2. Coordinate with Social work, Care Navigation, and Utilization Review to arrange appropriate level of services according to patient's needs based on patient preference and payer coverage in collaboration with the physician and health care team 3. Address psychosocial, clinical, and financial barriers to discharge as identified in assessment in conjunction with the patient/family and health care team 4. Consult appropriate ancillary services (i.e.. PT/OT/ST, etc) as needed 5. Communicate with and update the patient/family, physician, and health care team regarding progress on the discharge plan 6. Identify discharge learning needs (meds, wound care, etc). 7. Arrange for needed discharge transportation as appropriate Outcome: Progressing Note: Evaluation of progress towards goal: pt has discharge orders Problem: Neurological Deficit Goal: Neurological status is stable or improving Description: Patient's goal is: INTERVENTIONS 1. Complete Neurological assessment as indicated/ordered 2. Initiate measures to prevent increased intracranial pressure 3. Monitor and assess patient's level of consciousness, motor function, sensory function, and level of assistance needed for ADLs 4. Monitor and report changes from baseline 5. Maintain blood pressure and fluid volume within ordered parameters to optimize cerebral perfusion and minimize risk of hemorrhage 6. Monitor labs and diagnostic tests 7. Administer anti-seizure medications as ordered 8. Maintain airway, patient safety and administer oxygen as ordered 9. Monitor patient for seizure activity, document and report duration and description of seizure to LIP 10. If seizure occurs, turn patient to side and suction secretions as needed 11. Reorient patient post seizure 12. Seizure pads on all 4 side rails 13. Instruct patient/family to notify RN of any seizure activity 14. Instruct patient/family to call for assistance with activity based on assessment 15. Utilize bleeding precautions if thrombolytic given Outcome: Progressing Note: Evaluation of progress towards goal: neurological status is stable Problem: Moderate - High Risk Fall Score Description: Gallegos Fall Score of =/> [address] [facility] Assessment Goal: Patient should be free from fall Description: Interventions: 1. [place] to environment 2. Hourly rounds addressing the 4 P's (Pain, Positioning, Possessions, Potty) 3. Clear area of hazards (spills, clutter, electrical cords, unnecessary equipment) 4. Place equipment (bed & TV controls, call light, phone, urinal) within reach 5. Encourage patient to wear glasses and hearing aides as appropriate 6. Maintain bed in lowest position 7. Lock wheels on bed/wheelchair 8. Provide adequate lighting, including night light 9. Assess need for additional bedding, food/fluids, pain med's prior to sleep/routinely 10. Provide gripper slippers or personal non-skid footwear 11. Teach patient and patient passenger relations representative to maintain environment for safety and engage in all aspects of fall prevention program 12. Remind patient to call for help before getting out of bed 13. Initiate bed/chair/exit alarms supportive devices as appropriate, (chair wedge, no-skid floor mat, raised edge mattress, hip protectors) 14. Locate patient bed assignment for optimal visualization 15. Evaluate and identify Safe Patient Handling Equipment needs 16. Provide supervision when out of bed or chair 17. Utilize gait belt as needed to assist with ambulation 18. Place adaptive equipment (cane, walker) within reach 19. Request patient passenger relations representative bring adaptive equipment/mobility aids from home or obtain and provide as needed 20. Consult pharmacy regarding effects of med's affecting mobility, cognition, and alternatives 21. Obtain physician order for PT if risk factors associated with mobility are present 22. Obtain physician order for OT as appropriate 23. Utilize diversional activities 24. Educate patient and patient passenger relations representative how to maintain a safe environment during visitation times (notify nurse prior to leaving bedside) 25. Consider appropriateness of medical or non-medical reception specialist 26. Set up voiding schedule as appropriate (every 2 hours) Outcome: Progressing Note: Evaluation of progress towards goal: fall precautions in place and pt remains free from falls -[facility] [id number] 07-20-2024 Progress note Formatting of t his note might be different from the original. DISCHARGE PLANNING NOTE Patient's family has appealed his discharge & we have received notification from [employer] that a DC appeal has been called in. The chart, DND form, & IMM have been successfully uploaded by engineering writer to the [employer] and successfully received by [facility]. [facility] will notify the of the patient of the appeal determination. Roll Forming Machine Operator phone called patient's & read the DND notice to her. Paper copy of the DND notice to be delivered to the patient's bedside. [employer] Operator informed to anticipate phone call from [employer] re: determination of DC Appeal & encouraged wifeto answer the phone when [employer] calls. expressed verbal understanding of DND and the DC appeal process. - NELLI GLEZ MINE ENVIRONMENTAL ENGINEER CARE NAVIGATION 07/20/24 5:13 PM [facility] 07-20-2024 Consult note Associated Order (s): IP CONSULT TO NEUROSURGERY Images from the original note were not included. [facility] [address] [place] [address], [address] [place] [address] * NEUROSURGERY CONSULT NOTE DATE:07/20/2024 PATIENT'S NAME: Noé Jeffrey PATIENT'S PATIENT'S : 1965 NEUROSURGERY ATTENDING: Dr. Villar REASON FOR CONSULT Small colloid Cyst on MRI HISTORY OF PRESENT ILLNESS Noé Jeffery is a 59 y.o. male with hx dementia, seizures, fall in 2023 with possible TBI who presents with rapid declining cognition and for neurology evaluation. As part of his workup, MRI brain was obtained that was negative for any acute findings but did find a very small possible colloid cyst at the anterior aspect of the third ventricle. Neurosurgery consulted for these findings. ALLERGIES Allergies Allergen Reactions Diphenhydramine Abnormal Behavior MEDICATIONS Current Facility-Administered Medications: acetaminophen (TYLENOL) tablet 650 mg, 650 mg, oral, Q4H PRN, Jennifer Medel MD dextrose (GLUTOSE) 40 % gel 15 g, 15 g, oral, PRN, Nichol Heath MD dextrose 50 % in water (D50W) 50% solution 25 mL, 25 mL, intravenous, PRN, Nichol Heath MD divalproex sprinkle (DEPAKOTE SPRINKLE) capsule 500 mg, 500 mg, oral, Q12H JAREK, Nichol Heath MD, 500 mg at 07/20/24 0839 donepeziL (ARICEPT) tablet 5 mg, 5 mg, oral, Nightly, Nichol Heath MD, 5 mg at 07/19/242155 doxycycline (VIBRAMYCIN) capsule 100 mg, 100 mg, oral, BID, Suzanne Shipley MD, 100 mg at 07/20/24 0840 DULoxetine (CYMBALTA) DR capsule 20 mg, 20 mg, oral, Daily, Nichol Heath MD, 20 mg at 07/20/2440 enoxaparin (LOVENOX) syringe 40 mg, 40 mg, subcutaneous, Daily, Suzanne Shipley MD, 40 mg at 07/20/24 0841 glucagon HCL injection 1 mg, 1 mg, intramuscular, PRN, Nichol Heath MD prochlorperazine (COMPAZINE) injection 5 mg, 5 mg, intravenous, Q6H PRN AND ketorolac (TORADOL) injection 15 mg, 15 mg, intravenous, Q6H PRN AND magnesium sulfate IVPB 1000 mg/100 mL in dextrose 5% (10 mg/mL premix), 1,000 mg, intravenous, PRN, Jennifer Medel MD melatonin (CIRCADIN) tablet 10 mg, 10 mg, oral, Nightly, Kelvin Johnson MD nicotine (NICODERM CQ) 21 mg/24 hr 1 patch, 1 patch, transdermal, Daily, Ncihol Heath MD ondansetron ODT (ZOFRAN ODT) disintegrating tablet 4 mg, 4 mg, buccal, Q8H PRN, Nichol Heath MD pantoprazole (PROTONIX) EC tablet 40 mg, 40 mg, oral, QAM AC, Nichol Heath MD, 40 mg at 07/20/2442 QUEtiapine (SEROquel) tablet 150 mg, 150 mg, oral, Nightly, 150 mg at 07/19/242154 AND QUEtiapine (SEROquel) tablet 50 mg, 50 mg, oral, Daily, Nichol Heath MD, 50 mg at 07/20/2440 sennosides-docusate sodium (SENOKOT-S) 8.6-50 mg 1 tablet, 1 tablet, oral, Q12H PRN, Nichol Heath MD sodium chloride 0.9 % flush 3 mL, 3 mL, intravenous, PRN, Nichol Heath MD sodium chloride 0.9 % flush 3 mL, 3 mL, intravenous, Q12H JAREK, Nichol Heath MD, 3 mL at 07/14/242113 sodium chloride 0.9 % flush bag, 25 mL, intravenous, PRN, Nichol Heath MD ziprasidone (GEODON) injection 10 mg, 10 mg, intramuscular, Q6H PRN, Lonnie Baker MD, 10 mg at 07/12/24 0026 PAST MEDICAL AND SURGICAL HISTORY Past Medical History: Diagnosis Date GERD (gastroesophageal reflux disease) High cholesterol Perforated sigmoid colon (CMS-HCC) Past Surgical History: Procedure Laterality Date ARM EXPLORATION WITH REPAIR LACERATED ULNAR ARTERY Left 11/24/2019 Performed by Skyler Bowen MD at [facility] COLONOSCOPY BROCK 3YEARS AGO COLOSTOMY CLOSURE PUNCTURE LUMBAR N/A 07/10/2024 Performed by Zach Nails MD at [facility] FAMILY HISTORY Family History Problem Relation Age of Onset Breast cancer Sister SOCIAL HISTORY Tobacco: reports that he has never smoked. He has never used smokeless tobacco. Alcohol: reports no history of alcohol use. Drugs: reports no history of drug use. Children: Occupation: Marital Status: REVIEW OF SYSTEMS Review of Systems Constitutional: Negative. HENT: Negative. Eyes: Negative. Respiratory: Negative. Cardiovascular: Negative. Gastrointestinal: Negative. Endocrine: Negative. Genitourinary: Negative. Musculoskeletal: Negative. Skin: Negative. Neurological: Negative for speech difficulty and headaches. Psychiatric/Behavioral: Positive for confusion. PHYSICAL EXAMINATION Temp: [36.3 C (97.3 F)-36.8 C (98.3 F)] 36.4 C (97.5 F) Pulse: [68-81] 74 Resp: [12-17] 14 BP: (94-119)/(51-84) 119/68 SpO2: [93 %-99 %] 99 % O2 Device: None (Room air) Physical Exam Vitals and nursing note reviewed. Constitutional: General: He is not in acute distress. HENT: Head: Normocephalic. Nose: Nose normal. Mouth/Throat: Mouth: Mucous membranes are dry. Eyes: Extraocular Movements: Extraocular movements intact. Pupils: Pupils are equal, round, and reactive to light. Cardiovascular: Rate and Rhythm: Normal rate and regular rhythm. Pulses: Normal pulses. Pulmonary: Effort: Pulmonary effort is normal. No respiratory distress. Abdominal: General: Abdomen is flat. There is no distension. Musculoskeletal: General: Normal range of motion. Cervical back: Normal range of motion. Skin: General: Skin is warm. Capillary Refill: Capillary refill takes less than 2 seconds. Neurological: Mental Status: He is alert. He is disoriented. Sensory: No sensory deficit. Motor: No weakness. Coordination: Coordination normal. Gait: Gait normal. Deep Tendon Reflexes: Reflexes normal. Comments: Oriented to self only. Psychiatric: Mood and Affect: Mood normal. Behavior: Behavior normal. LABORATORY DATA Results from last 7 days Lab Units 07/17/24 0834 SODIUM mmol/L 141 POTASSIUM mmol/L 4.3 CREATININE mg/dL 0.95 GLUCOSE mg/dL 97 CALCIUM mg/dL 8.8 WBC X10E9/L 4.1 HEMATOCRIT % 41.8 HEMOGLOBIN g/dL 13.9 PLATELETS X10E9/L 180 IMAGING No results found. 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 No obstructive pathology, no hydrocephalus or mass effect PLAN - MRI reviewed, no surgical recommendations at this time . Does not explain any of his mentation issues -Outpatient follow up in place. -ok for discharge from our standpoint -I discussed extensively at bedside with the patients and his sister. All questions and concerns addressed. -rest of care per primary team FRAN Burton Neurosurgery [facility] Please contact via [employer] first then can utilize Patient touch/[employer] if needed- 07/20/24 3:45 PM To find out which ASHLEE is on for the day please go to [employer] and use log in [employer] and search for PTH Neurosurgery FRAN Charles 07/20/24 [id number] -[facility] [employer] [facility] 07-20-2024 Consult note Associated Order (s): IP CONSULT TO NEUROSURGERY Images from the original note were not included. [facility] [address] [place] [address], [address] [place] [address] * NEUROSURGERY CONSULT NOTE DATE:07/20/2024 PATIENT'S NAME: Noé Jeffery PATIENT'S PATIENT'S : 1965 NEUROSURGERY ATTENDING: Dr. Villar REASON FOR CONSULT Small colloid Cyst on MRI HISTORY OF PRESENT ILLNESS Noé Jeffery is a 59 y.o. male with hx dementia, seizures, fall in 2023 with possible TBI who presents with rapid declining cognition and for neurology evaluation. As part of his workup, MRI brain was obtained that was negative for any acute findings but did find a very small possible colloid cyst at the anterior aspect of the third ventricle. Neurosurgery consulted for these findings. ALLERGIES Allergies Allergen Reactions Diphenhydramine Abnormal Behavior MEDICATIONS Current Facility-Administered Medications: acetaminophen (TYLENOL) tablet 650 mg, 650 mg, oral, Q4H PRN, Jennifer Medel MD dextrose (GLUTOSE) 40 % gel 15 g, 15 g, oral, PRN, Nichol Heath MD dextrose 50 % in water (D50W) 50% solution 25 mL, 25 mL, intravenous, PRN, Nichol Heath MD divalproex sprinkle (DEPAKOTE SPRINKLE) capsule 500 mg, 500 mg, oral, Q12H JAREK, Nichol Heath MD, 500 mg at 07/20/24 0839 donepeziL (ARICEPT) tablet 5 mg, 5 mg, oral, Nightly, Nichol Heath MD, 5 mg at 07/19/242155 doxycycline (VIBRAMYCIN) capsule 100 mg, 100 mg, oral, BID, Suzanne Shipley MD, 100 mg at 07/20/24 0840 DULoxetine (CYMBALTA) DR capsule 20 mg, 20 mg, oral, Daily, Nichol Heath MD, 20 mg at 07/20/24 0840 enoxaparin (LOVENOX) syringe 40 mg, 40 mg, subcutaneous, Daily, Suzanne Shipley MD, 40 mg at 07/20/24 0841 glucagon HCL injection 1 mg, 1 mg, intramuscular, PRN, Nichol Heath MD prochlorperazine (COMPAZINE) injection 5 mg, 5 mg, intravenous, Q6H PRN AND ketorolac (TORADOL) injection 15 mg, 15 mg, intravenous, Q6H PRN AND magnesium sulfate IVPB 1000 mg/100 mL in dextrose 5% (10 mg/mL premix), 1,000 mg, intravenous, PRN, Jennifer Medel MD melatonin (CIRCADIN) tablet 10 mg, 10 mg, oral, Nightly, Kelvin Johnson MD nicotine (NICODERM CQ) 21 mg/24 hr 1 patch, 1 patch, transdermal, Daily, Nichol Heath MD ondansetron ODT (ZOFRAN ODT) disintegrating tablet 4 mg, 4 mg, buccal, Q8H PRN, Nichol Heath MD pantoprazole (PROTONIX) EC tablet 40 mg, 40 mg, oral, QAM AC, Nichol Heath MD, 40 mg at 07/20/24 0842 QUEtiapine (SEROquel) tablet 150 mg, 150 mg, oral, Nightly, 150 mg at 07/19/24 2155 AND QUEtiapine (SEROquel) tablet 50 mg, 50 mg, oral, Daily, Nichol Heath MD, 50 mg at 07/20/24 0840 sennosides-docusate sodium (SENOKOT-S) 8.6-50 mg 1 tablet, 1 tablet, oral, Q12H PRN, Nichol Heath MD sodium chloride 0.9 % flush 3 mL, 3 mL, intravenous, PRN, Nichol Heath MD sodium chloride 0.9 % flush 3 mL, 3 mL, intravenous, Q12H JAREK, Nichol Heath MD, 3 mL at 07/14/24 2114 sodium chloride 0.9 % flush bag, 25 mL, intravenous, PRN, Nichol Heath MD ziprasidone (GEODON) injection 10 mg, 10 mg, intramuscular, Q6H PRN, Lonnie Baker MD, 10 mg at 07/12/24 0026 PAST MEDICAL AND SURGICAL HISTORY Past Medical History: Diagnosis Date GERD (gastroesophageal reflux disease) High cholesterol Perforated sigmoid colon (CMS-HCC) Past Surgical History: Procedure Laterality Date ARM EXPLORATION WITH REPAIR LACERATED ULNAR ARTERY Left 11/24/2019 Performed by Skyler Bowen MD at [facility] COLONOSCOPY BROCK 3YEARS AGO COLOSTOMY CLOSURE PUNCTURE LUMBAR N/A 07/10/2024 Performed by Zach Nails MD at [facility] FAMILY HISTORY Family History Problem Relation Age of Onset Breast cancer Sister SOCIAL HISTORY Tobacco: reports that he has never smoked. He has never used smokeless tobacco. Alcohol: reports no history of alcohol use. Drugs: reports no history of drug use. Children: Occupation: Marital Status: REVIEW OF SYSTEMS Review of Systems Constitutional: Negative. HENT: Negative. Eyes: Negative. Respiratory: Negative. Cardiovascular: Negative. Gastrointestinal: Negative. Endocrine: Negative. Genitourinary: Negative. Musculoskeletal: Negative. Skin: Negative. Neurological: Negative for speech difficulty and headaches. Psychiatric/Behavioral: Positive for confusion. PHYSICAL EXAMINATION Temp: [36.3 C (97.3 F)-36.8 C (98.3 F)] 36.4 C (97.5 F) Pulse: [68-81] 74 Resp: [12-17] 14 BP: (94-119)/(51-84) 119/68 SpO2: [93 %-99 %] 99 % O2 Device: None (Room air) Physical Exam Vitals and nursing note reviewed. Constitutional: General: He is not in acute distress. HENT: Head: Normocephalic. Nose: Nose normal. Mouth/Throat: Mouth: Mucous membranes are dry. Eyes: Extraocular Movements: Extraocular movements intact. Pupils: Pupils are equal, round, and reactive to light. Cardiovascular: Rate and Rhythm: Normal rate and regular rhythm. Pulses: Normal pulses. Pulmonary: Effort: Pulmonary effort is normal. No respiratory distress. Abdominal: General: Abdomen is flat. There is no distension. Musculoskeletal: General: Normal range of motion. Cervical back: Normal range of motion. Skin: General: Skin is warm. Capillary Refill: Capillary refill takes less than 2 seconds. Neurological: Mental Status: He is alert. He is disoriented. Sensory: No sensory deficit. Motor: No weakness. Coordination: Coordination normal. Gait: Gait normal. Deep Tendon Reflexes: Reflexes normal. Comments: Oriented to self only. Psychiatric: Mood and Affect: Mood normal. Behavior: Behavior normal. LABORATORY DATA Results from last 7 days Lab Units 07/17/24 0834 SODIUM mmol/L 141 POTASSIUM mmol/L 4.3 CREATININE mg/dL 0.95 GLUCOSE mg/dL 97 CALCIUM mg/dL 8.8 WBC X10E9/L 4.1 HEMATOCRIT % 41.8 HEMOGLOBIN g/dL 13.9 PLATELETS X10E9/L 180 IMAGING No results found. 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 No obstructive pathology, no hydrocephalus or mass effect PLAN - MRI reviewed, no surgical recommendations at this time . Does not explain any of his mentation issues -Outpatient follow up in place. -ok for discharge from our standpoint -I discussed extensively at bedside with the patients and his sister. All questions and concerns addressed. -rest of care per primary team FRAN Burton Neurosurgery [facility] [employer] [facility] Please contact via [employer] first then can utilize Patient touch/VoceraEdge if needed- 07/20/24 3:45 PM To find out which ASHLEE is on for the day please go to [employer] and use log in [employer] and search for PTH Neurosurgery FRAN Charles 07/20/24 1632 Images from the original note were not included. [facility] Neurology General Neurology Consult Note Primary Neurology service: [phone] Patient - Noé Jeffery Age - 59 [facility]. [facility] 1965 [id number] Date of Admission - 07/06/2024 7:28 AM Chief Complaint: TBI HPI: Noé Jeffery is a 59 y.o. year old male for whom Neurology was consulted for reevaluation after TBI. 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 He follows up with [facility] Neurology and had underwent a heavy metal screen, [facility] analysis, MRI 2021 showing severe generalized volume loss and hippocampal volumes at the 1st percentile of his age group. Presented to the hospital 07/06 as a transfer from an outside hospital for worsening forgetfulness and cognitive decline after a fall. Our service followed up with the patient and after obtaining an MRI of the brain with and without contrast we had found small foci of FLAIR hyperintensity signals multifocal with right frontal dominance and subcortical white matter and some juxtacortical/cortical without any evidence of restricted diffusion or abnormal contrast enhancement. In addition to diffuse cortical atrophy and at that time we had stated that these findings are suggestive for diffuse axonal injury/TBI and then the cortical atrophy is consistent with the his already established diagnosis of early dementia. LP was done and CSF analysis was normal and his serum Lyme testing, VDRL, HIV all came back negative and his B12 was greater than 500. Ammonia and Sharma were normal and thyroid were within normal limits. Our impression at that time was diffuse axonal injury in addition to the pre-existing diagnosis of early-onset dementia and our recommendations were to follow up outpatient Neurology and CSF autoimmune panel in addition to psychiatric evaluation and follow up with TBI clinic for cognitive rehabilitation. General neurology was consulted to re-evaluate the patient today per family request. On evaluation patient alert, oriented to self and situation only and was pleasant allowing me to contact full neurological exam and was able to participate in conversation telling me about his kids and answering my questions. No focal neurological deficits noted. Patient is able to tell that person at bedside is his in the other person is that his sister however unable to tell names, patient was able to tell me that he has 2 kids however unable to tell the names as well which is consistent with already established diagnosis of diffuse axonal injury/TBI. Patient was not in restraints and had not required any medication for agitation for the past few days. History: Past Medical History/Surgical History: Active Ambulatory Problems Diagnosis Date Noted Laceration of left ulnar artery 11/24/2019 Resolved Ambulatory Problems Diagnosis Date Noted No Resolved Ambulatory Problems Past Medical History: Diagnosis Date GERD (gastroesophageal reflux disease) High cholesterol Perforated sigmoid colon (CMS-HCC) Family History: Family History Problem Relation Age of Onset Breast cancer Sister Social History: Social History Socioeconomic History Marital status: Spouse name: Not on file Number of children: Not on file Years of education: Not on file Highest education level: Not on file Occupational History Not on file Tobacco Use Smoking status: Never Smokeless tobacco: Never Substance and Sexual Activity Alcohol use: No Drug use: No Sexual activity: Defer Partners: Female Other Topics Concern Not on file Social History Narrative Not on file Social Drivers of Health Financial Resource Strain: Not on file Food Insecurity: Patient Unable To Answer (07/06/2024) Hunger Screening Food Insecurity - Worry: Patient unable to answer Food Insecurity - Inability: Patient unable to answer Transportation Needs: Patient Unable To Answer (07/06/2024) PRAPARE - Transportation Lack of Transportation (Medical): Patient unable to answer Lack of Transportation (Non-Medical): Patient unable to answer Physical Activity: Not on file Stress: Not on file Social Connections: Not on file Interpersonal Safety: Patient Unable To Answer (07/06/2024) Humiliation, Afraid, Rape, and Kick questionnaire Fear of Current or Ex-Partner: Patient unable to answer Emotionally Abused: Patient unable to answer Physically Abused: Patient unable to answer Sexually Abused: Patient unable to answer Housing Instability: Patient Unable To Answer (07/06/2024) Housing Instability Housing Instability: Patient unable to answer Medications: Unknown Allergies: Allergies Allergen Reactions Diphenhydramine Abnormal Behavior Review of Systems: Review of Systems Neurological: Negative for dizziness, seizures, syncope, facial asymmetry, speech difficulty, weakness, light-headedness, numbness, headaches, coarse tremors, tremors and dysesthesia. Psychiatric/Behavioral: Positive for confusion. Negative for self-injury and suicidal ideas. Physical Exam Vital Signs: Vitals: 07/19/24 1211 BP: 97/70 Pulse: 83 Resp: 16 Temp: 36.6 C (97.8 F) SpO2: 97% General: Normotensive, in no acute distress. Neurological Exam Mental Status Alert. Oriented only to person and situation. Patient was able to tell me that his sister is his sister but unable to tell names. Patient was able to also tell me that he has 2 kids however unable to tell the names as well. Patient was able to identify his . Patient had not used any as needed medication for agitation recently. And is now off restraints.. Cranial Nerves CN II: Visual acuity is normal. Visual montez full to confrontation. CN III, IV, : Extraocular movements intact bilaterally. Normal lids and orbits bilaterally. Pupils equal round and reactive to light bilaterally. CN V: Facial sensation is normal. CN VII: Full and symmetric facial movement. CN VIII: Hearing is normal. CN IX, X: Palate elevates symmetrically. Normal gag reflex. CN XI: Shoulder shrug strength is normal. CN XII: Tongue midline without atrophy or fasciculations. Motor Strength is 5/5 throughout all four extremities. Sensory Sensation is intact to light touch, pinprick, vibration and proprioception in all four extremities. Reflexes Deep tendon reflexes are 2+ and symmetric in all four extremities. Coordination Gweagy-du-jytv, rapid alternating movements and qdzq-te-jofu normal bilaterally without dysmetria. Gait Deferred. Psychiatric evaluation: Patient had normal mode with no homicidal or suicidal ideation. Patient denied visual/auditory hallucinations and appeared to be attentive to conversation. Patient had normal affect and normal speech. Patient was not agitated and was compliant with all testing and was answering questions and cooperating with conversation. Patient did display impaired cognition and memory with impaired recent and remote memory. Medications Scheduled: divalproex sprinkle, 500 mg, oral, Q12H JAREK donepeziL, 5 mg, oral, Nightly doxycycline, 100 mg, oral, BID DULoxetine, 20 mg, oral, Daily enoxaparin (LOVENOX) injection, 40 mg, subcutaneous, Daily melatonin, 5 mg, oral, Nightly nicotine, 1 patch, transdermal, Daily pantoprazole, 40 mg, oral, QAM AC QUEtiapine, 150 mg, oral, Nightly AND QUEtiapine, 50 mg, oral, Daily sodium chloride, 3 mL, intravenous, Q12H JAREK Infusions: As Needed: acetaminophen dextrose dextrose 50 % in water (D50W) glucagon (human recombinant) ondansetron ODT sennosides-docusate sodium sodium chloride sodium chloride ziprasidone Pertinent testing: Pertinent Labs: Imaging: MRI 07/08/2024: IMPRESSION: The high attenuation focus shown on brain CT from July 07 at the anterior aspect of the third ventricle 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 It is difficult to localize with certainty on the brain MRI and does not enhance. Specifically, there are no enhancing or aggressive brain lesions. Other Testing: EEG 07/08/2024: This study is abnormal. It shows evidences to indicate mild to moderate diffuse encephalopathy that may be correlated with a disorder involving both cortical and subcortical systems. Clinical correlation is recommended. Assessment and Plan: 58-year-old male with past history of complex sleep apnea on CPAP, major cognitive disorder with CSF biomarkers confirmed early onset diagnosis established in [facility] September 2022 but reportedly functional at home per family in addition to hyperlipidemia, GERD, dm 2. Patient was transferred from [facility] for higher level of care and workup for sharp cognitive decline since May 2024. Neurology consult was consulted for this patient and stated that the findings are consistent with diffuse axonal injury/TBI however we were reconsulted for re-evaluation. Assessment: Acute decline in mental status after a fall in May in the setting of early onset Alzheimer's disease possibly secondary to TBI/diffuse axonal injury Agitation - resolved Plan Follow up on autoimmune CSF analysis outpatient. Follow up outpatient Neurology Alzheimer dementia Clinic. Follow up outpatient TBI clinic. Avoid Ativan/Benadryl Rexulti Continue Psychiatry recommendation for medication No further plans from Neurology standpoint Khalif Valerio MD PGY-1 Neurology [facility] 07/19/24 1:[address] Sofia This patient is being followed by the Neurology Resident service. Contact attending directly during these hours: Tuesday to 7:30-8:30 A.M. to Tuesday 12-1:00 p.m. Primary Neurology service: [phone] Consult neurology service: [phone] Resident Stroke Service: [phone] If the patient belongs to the Stroke ASHLEE service please contact the Stroke ASHLEE directly. Cosigned by Kelley Sofia MD at 07/21/2024 9:42 AM EST Associated attestation - Kelley Sofia MD - 07/21/2024 9:42 AM EST Images from the original note were not included. I have discussed the case of Noé Jeffery, including pertinent history and exam findings with the resident. I have seen and examined the patient and the jimenez elements of the encounter have been performed by me. I agree with the assessment, plan and orders as documented by the resident with changes made to the note as needed. Lab Results Component Value Date LDLCALC 184 (H) 05/10/2016 No results found for: CHLPL Lab Results Component Value Date TRIG 157 (H) 05/10/2016 Lab Results Component Value Date HDL 46 05/10/2016 Lab Results Component Value Date LDLCALC 184 (H) 05/10/2016 No results found for: LABVLDL No components found for: LABA1C No components found for: EAG Lab Results Component Value Date [id number] 526 07/08/2024 Neurological work up: CT head CTA head and neck MRI brain 05/07/2022 hippocampal volume loss. White matter changes. 2 D echo Assessment and recommendations Delirium superimposed on baseline cognitive impairment Presyncope likely neurocardiogenic Hypotension Early-onset Alzheimer disease confirmed with bio markers at [facility] Upon examination patient is awake, is noted to have cognitive impairment, intermittently following commands, moving all extremities. 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 Additionally, white matter changes concerning for TBI. A CT brain showed a slightly asymmetric increased density at the left ICA terminus and left M1 segment of the MCA, though this is likely artifactual. Recommend outpatient follow up for surveillance. A spinal tap was unremarkable, and an autoimmune/paraneoplastic panel was negative. Additionally, HIV testing was nonreactive. The patient has a childhood history of seizures, characterized by transient, intermittent staring episodes, along with prior MRI findings concerning for hippocampal volume loss. Additionally, reports of transient, intermittent rhythmic jerking raise concern for myoclonus versus seizures. Notably, these symptoms have shown improvement with Depakote administration, further supporting an underlying epileptic or myoclonic process responsive to valproate therapy. The patient is currently on Depakote 500 mg BID, which I recommend continuing for now. A recent EEG was negative for seizures, but given the family's concern that the patient is not at his baseline, I recommend a repeat EEG on an outpatient basis to monitor for any evolving epileptiform activity and guide long-term management. Adjustments to the Depakote dose will be made accordingly based on findings. Discussed in detail with family at bedside. Patient to follow up with neurology on outpatient basis in 4-6 weeks. Neurology will sign off. Kelley Sofia MD Neurology This note is created with the assistance of a speech-recognition program. While intending to generate a document that actually reflects the content of the visit, the document can still have some errors including those of syntax and sound a- like substitutions which may escape proofreading. In such instances, actual meaning can be extrapolated by contextual derivation. Associated Order(s): IP CONSULT TO PHYSICAL MEDICINE REHAB Images from the original note were not included. PHYSICAL MEDICINE AND REHABILITATION CONSULT Date of Admission: 07/06/2024 7:28 AM Referring Physician: Nichol Heath MD PCP: JAE LOPEZ MD Chief Compliant: Principal Problem: Dementia with behavioral disturbance ([facility]) Active Problems: Altered mental status Status post colostomy, follow-up exam ([facility]) Reason for Consultation: Rehabilitation Candidacy and Rehab Clinical Documentation Clerk Physicians/Services Consulting Providers Provider Service Specialty Mina Franks MD Psychiatry Psychiatry Jessica Johnson MD -- Neurology Sonya Astudillo MD Z Physical Medicine and Rehabilitation Physical Medicine & Rehabilitation History Of Present Illness: Noé Jeffery is a 58 y.o. male early-onset Alzheimer's dementia, type 2 diabetes, dyslipidemia who presents to the hospital with altered mental status on 07/06/2024 7:28 AM. Upon the arrival patient was very confused. And he was also on salt wrist restraints as well. Patient is seen with psychiatrist recommending memory care unit. Patient was becoming agitated and requiring restraints overnight. CSF studies been normal. MRI of the brain did not show any any aggressive brain lesions or enhancing lesions. According to , patient had a fall about a month ago, since then patient has been more confused and combative. I was consulted regarding Rehabilitation needs. ROS : A comprehensive 14 review of systems was negative except for confusion, gait difficulty and debility hallucination and agitation Cardiovascular ROS: negative Respiratory ROS: negative Neurological ROS: positive for - behavioral changes and gait disturbance Musculoskeletal ROS: positive for - gait disturbance and muscular weakness PMH Past Medical History: Diagnosis Date GERD (gastroesophageal reflux disease) High cholesterol Perforated sigmoid colon ([facility]) PSH Past Surgical History: Procedure Laterality Date ARM EXPLORATION WITH REPAIR LACERATED ULNAR ARTERY Left 11/24/2019 Performed by Skyler Bowen MD at [facility] COLONOSCOPY VISALIA 3YEARS AGO COLOSTOMY CLOSURE Allergies Allergies Allergen Reactions Diphenhydramine Abnormal Behavior Medications: Scheduled meds divalproex sprinkle, 500 mg, oral, Q12H JAREK donepeziL, 5 mg, oral, Nightly DULoxetine, 20 mg, oral, Daily heparin (porcine), 5,000 Units, subcutaneous, Q8H JAREK melatonin, 5 mg, oral, Nightly nicotine, 1 patch, transdermal, Daily pantoprazole, 40 mg, oral, QAM AC QUEtiapine, 150 mg, oral, Nightly AND QUEtiapine, 50 mg, oral, Daily sodium chloride, 3 mL, intravenous, Q12H JAREK PRN meds acetaminophen dextrose dextrose 50 % in water (D50W) glucagon (human recombinant) ondansetron ODT sennosides-docusate sodium sodium chloride sodium chloride ziprasidone Social History Social History Socioeconomic History Marital status: Spouse name: Not on file Number of children: Not on file Years of education: Not on file Highest education level: Not on file Occupational History Not on file Tobacco Use Smoking status: Never Smokeless tobacco: Never Substance and Sexual Activity Alcohol use: No Drug use: No Sexual activity: Defer Partners: Female Other Topics Concern Not on file Social History Narrative Not on file Social Drivers of Health Financial Resource Strain: Not on file Food Insecurity: Patient Unable To Answer (07/06/2024) Hunger Screening Food Insecurity - Worry: Patient unable to answer Food Insecurity - Inability: Patient unable to answer Transportation Needs: Patient Unable To Answer (07/06/2024) PRAPARE - Transportation Lack of Transportation (Medical): Patient unable to answer Lack of Transportation (Non-Medical): Patient unable to answer Physical Activity: Not on file Stress: Not on file Social Connections: Not on file Interpersonal Safety: Patient Unable To Answer (07/06/2024) Humiliation, Afraid, Rape, and Kick questionnaire Fear of Current or Ex-Partner: Patient unable to answer Emotionally Abused: Patient unable to answer Physically Abused: Patient unable to answer Sexually Abused: Patient unable to answer Housing Instability: Patient Unable To Answer (07/06/2024) Housing Instability Housing Instability: Patient unable to answer Patient was living at home with family but he was functional at home. He became more confused and agitated. Premorbid level of function: Family History Family History Problem Relation Age of Onset Breast cancer Sister Physical Examination Vital Signs: Blood pressure 132/78, pulse 63, temperature 36.4 C (97.5 F), temperature source Oral, resp. rate 20, weight 83.9 kg (184 lb 15.5 oz), SpO2 95%. Admission Weight: Weight: 83.9 kg (184 lb 15.5 oz) General Appearance: confused, did not recognize his sister. Head: Normocephalic, without obvious abnormality, atraumatic Eyes: conjunctivae/corneas clear. PERRL, EOM's intact. Fundi benign. ENT: ENT exam normal, no neck nodes or sinus tenderness Neck: no adenopathy, no carotid bruit, no JVD, supple, symmetrical, trachea midline, and thyroid not enlarged, symmetric, no tenderness/mass/nodules Lungs: clear to auscultation bilaterally Heart: regular rate and rhythm, S1, S2 normal, no murmur, click, rub or gallop Abdomen: soft, non-tender; bowel sounds normal; no masses, no organomegaly Extremities: extremities normal, atraumatic, no cyanosis or edema Skin: Skin color, texture, turgor normal. No rashes or lesions Neurologic: confused. IMAGE: No results found. LABS Recent Results (from the past 48 hours) CSF spinal fluid cell count Collection Time: 07/10/24 9:39 AM Result Value Ref Range CSF nucleated cells 1 0 - 5 /uL CSF RBC 48 (H) 0 - 1 /uL CSF color COLORLESS CSF clarity CLEAR CSF supernatant COLORLESS CSF comment TUBE 3 CSF diff NUCLEATED CELLS <5/uL; DIFF NOT TESTED Csf total protein Collection Time: 07/10/24 9:39 AM Result Value Ref Range Protein, CSF 45 15 - 45 mg/dL Cytology Collection Time: 07/10/24 9:39 AM [facility] [address] [place] [address] Cytology Consultation Patient Name:NOÉ JEFFERY:1965 (Age: 58)Gender:MTaken:07/10/2024Report ed:07/11/2024 16:49Physician(s):Arnulfo Haley M.D. ([phone])Copy To:Quinton Harrell M.D. Rec. #:[id number]: #[id number] Final Cytologic Diagnosis Cerebrospinal fluid: No malignant cells identified. 07/11/2024 Interpretation performed at [facility], [address] [place] [address], License number: [id number].Electronically Signed Out By Derick Lorenz MD Additional Report(s): Flow Cytometry-Surg/BM/NG Date Reported: # Immunophenotyping antibodies tested: CD3, CD4, CD5, CD7, CD8, CD19, CD20, CD45, Sterling, and Lambda. Immunophenotyping Comment: Immunophenotyping has been used in this diagnostic evaluation. This test was developed and its performance characteristics determined by the [facility] Department. It has not been cleared or approved by the U.S. Food and Drug Administration. The FDA has determined that such clearance or approval is not necessary. This test is used for clinical purposes. It should not be regarded as investigational or for research. This laboratory is certified under the Clinical Laboratory Improvement Amendments of 1988 ( CLIA ) as qualified to perform high-complexity clinical testing. Riaz Edouard MD Clinical History Dementia with behavioral disturbance ([facility]) F03.918, acute change in personality Gross Description Received was 2ml of clear colorless fluid unfixed labeled as Jeffery, CSF . Also received is one cytospin slide from Hematology. Source of Specimen Cerebrospinal fluid Non PET AMBASSADOR ThinPrep, Cytospin Slide Fee Code(s): 1; 22271 VDRL, Spinal Fluid Collection Time: 07/10/24 9:39 AM Result Value Ref Range VDRL, Spinal Fluid Negative Negative Spinal Fluid culture includes gram stain, CSF Collection Time: 07/10/24 9:39 AM Specimen: Cerebrospinal Fluid Result Value Ref Range Gram Stain Result WHITE BLOOD CELLS PRESENT Gram Stain Result NO ORGANISMS SEEN Gram Stain Result ON CONCENTRATED SMEAR Culture NO GROWTH 2 DAYS Meningitis Panel, CSF Collection Time: 07/10/24 9:39 AM Result Value Ref Range Specimen Source CEREBROSPINAL FLUID E Coli K1 Not Detected Not Detected^Not Detected H Influenzae Not Detected Not Detected^Not Detected L Monocytogenes Not Detected Not Detected^Not Detected N Meningitidis Not Detected Not Detected^Not Detected S Agalactiae Not Detected Not Detected^Not Detected S Pneumoniae Not Detected Not Detected^Not Detected CMV Not Detected Not Detected^Not Detected Enterovirus Not Detected Not Detected^Not Detected Herpes Simplex 1 Not Detected Not Detected^Not Detected Herpes Simplex 2 Not Detected Not Detected^Not Detected Herpes Virus 6 Not Detected Not Detected^Not Detected Parechovirus Not Detected Not Detected^Not Detected Varicella Zoster Virus Not Detected Not Detected^Not Detected C Neoformans Not Detected Not Detected^Not Detected Glucose, CSF Collection Time: 07/10/24 9:39 AM Result Value Ref Range Glucose, CSF 66 40 - 70 mg/dL THERAPY Speech Therapy Yes Cognition Current Level of Function - Physical Therapy Mobility/transfers: Ambulation: Activity limitations: Weight-bearing: Current Level of Function - Occupational Therapy Feeding: Grooming: Bathing: Dressing: Toileting: Activity limitations: Assessment/Plan Principal Problem: Dementia with behavioral disturbance ([facility]) Active Problems: Altered mental status Status post colostomy, follow-up exam ([facility]) Acute mental status change patient also was diagnosed with early onset of Alzheimer's dementia vs questionable TBI Debility Gait difficulty Generalized weakness Cognitive deficit-speech for cognitive evaluation. Agitation Discussed rehab options such as inpatient/acute rehab 3 hours of therapy a day with 24 hours of doctors and nurses care vs skilled care nursing center/subacute rehab 1-2 hours of therapy a day vs home care with home care or outpatient therapy. Reviewed Physical and occupational therapy notes, we will order PT OT and speech. We will follow Thank you for the referral. Nito Mirza MD Associated Order(s): IP CONSULT TO PSYCHIATRY PSYCHIATRIC EVALUATION No contraindications for seclusion No contraindications for restraint CHIEF COMPLAINT: Dementia with behavioral disturbance (CMS-HCC) Noé Jeffery is a 58 y.o. male who presents with Dementia with behavioral disturbance (CMS-HCC) .he is HISTORY OF PRESENT ILLNESS: The patient is a 58-year-old [place] male treatment at the [facility] for the patient has a substantial history of dyslipidemia, sleep apnea, type 2 diabetes mellitus, recent diagnosed history of early-onset Alzheimer's dementia, an epileptic disorder in remission, as well as a recent admission to [facility] for altered mental status. 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 When attempting to interview the patient I found him to be pleasantly confused, alert but not oriented to time place or person. He was redirectable by nursing staff, currently was found to be in soft restraints. Did not appear to be responding to internal stimuli. He did exhibit a euthymic mood. Did not want to answer questions but was very polite in his refusal. I did discuss the ongoing circumstances with his family members. After discussion with family members as well as perusal of records I recommend that we continue the current medical management. I do not see a positive efficacy of duloxetine in the current situation but I would suggest that we can add Depakote Sprinkles at a dose of 500 mg twice a day for help with agitation. I would also suggest that the patient be potentially discharged to a memory care unit or assisted that is well-versed in the treatment of memory care issues. At this time the patient for admission to inpatient ambulatory psychiatric unit. PAST PSYCHIATRIC HISTORY: See Above MEDICAL HISTORY: Past Medical History: Diagnosis Date GERD (gastroesophageal reflux disease) High cholesterol Perforated sigmoid colon (CMS-HCC) has a past medical history of GERD (gastroesophageal reflux disease), High cholesterol, and Perforated sigmoid colon (CMS-HCC). Past Surgical History: Procedure Laterality Date ARM EXPLORATION WITH REPAIR LACERATED ULNAR ARTERY Left 11/24/2019 Performed by Skyler Bowen MD at [facility] 3YEARS AGO COLOSTOMY CLOSURE Medications Prior to Admission Medication Sig Dispense Refill Last Dose/Taking acetaminophen (TYLENOL EXTRA STRENGTH) 500 mg tablet Take 1 tablet (500 mg total) by mouth every 6 (six) hours as needed for pain. 07/05/2024 benztropine (COGENTIN) 1 mg tablet Take 1 tablet (1 mg total) by mouth in the morning and 1 tablet (1 mg total) before bedtime. 07/05/2024 brexpiprazole (REXULTI) 2 mg tablet Take 1 tablet (2 mg total) by mouth in the morning. 07/05/2024 donepeziL (ARICEPT) 5 mg tablet Take 1 tablet (5 mg total) by mouth nightly. 07/05/2024 FLUoxetine (PROzac) 20 mg capsule Take 1 capsule (20 mg total) by mouth in the morning. 07/05/2024 haloperidoL (HALDOL) 5 mg tablet Take 1 tablet (5 mg total) by mouth in the morning and 1 tablet (5 mg total) at noon and 1 tablet (5 mg total) in the evening and 1 tablet (5 mg total) before bedtime. 07/05/2024 loperamide (IMODIUM A-D) 2 mg tablet Take 1 tablet (2 mg total) by mouth 4 (four) times a day as needed for diarrhea. 07/05/2024 LORazepam (ATIVAN) 1 mg tablet Take 1 tablet (1 mg total) by mouth every 6 (six) hours as needed for anxiety. 07/05/2024 omeprazole (PriLOSEC) 40 mg capsule Take 1 capsule (40 mg total) by mouth in the morning. 07/05/2024 aspirin 81 mg Take 1 tablet (81 mg total) by mouth daily. (Patient not taking: Reported on 05/06/2020 ) 60 tablet 0 FREESTYLE 28 gauge lancets FREESTYLE LITE METER kit FREESTYLE LITE STRIPS strip omeprazole (PriLOSEC) 20 mg capsule Take 20 mg by mouth daily. oxyCODONE-acetaminophen (PERCOCET) 5-325 mg per tablet oxycodone-acetaminophen 5 mg-325 mg tablet simvastatin (ZOCOR) 10 mg tablet Take 10 mg by mouth nightly. Diphenhydramine FAMILY HISTORY: Family History Problem Relation Age of Onset Breast cancer Sister SOCIAL HISTORY: See Above Social History Socioeconomic History Marital status: Tobacco Use Smoking status: Never Smokeless tobacco: Never Substance and Sexual Activity Alcohol use: No Drug use: No Sexual activity: Defer Partners: Female Social Drivers of Health Food Insecurity: Patient Unable To Answer (07/06/2024) Hunger Screening Food Insecurity - Worry: Patient unable to answer Food Insecurity - Inability: Patient unable to answer Transportation Needs: Patient Unable To Answer (07/06/2024) PRAPARE - Transportation Lack of Transportation (Medical): Patient unable to answer Lack of Transportation (Non-Medical): Patient unable to answer Interpersonal Safety: Patient Unable To Answer (07/06/2024) Humiliation, Afraid, Rape, and Kick questionnaire Fear of Current or Ex-Partner: Patient unable to answer Emotionally Abused: Patient unable to answer Physically Abused: Patient unable to answer Sexually Abused: Patient unable to answer Housing Instability: Patient Unable To Answer (07/06/2024) Housing Instability Housing Instability: Patient unable to answer Social History Socioeconomic History Marital status: Spouse name: Not on file Number of children: Not on file Years of education: Not on file Highest education level: Not on file Occupational History Not on file Tobacco Use Smoking status: Never Smokeless tobacco: Never Substance and Sexual Activity Alcohol use: No Drug use: No Sexual activity: Defer Partners: Female Other Topics Concern Not on file Social History Narrative Not on file Social Drivers of Health Financial Resource Strain: Not on file Food Insecurity: Patient Unable To Answer (07/06/2024) Hunger Screening Food Insecurity - Worry: Patient unable to answer Food Insecurity - Inability: Patient unable to answer Transportation Needs: Patient Unable To Answer (07/06/2024) PRAPARE - Transportation Lack of Transportation (Medical): Patient unable to answer Lack of Transportation (Non-Medical): Patient unable to answer Physical Activity: Not on file Stress: Not on file Social Connections: Not on file Interpersonal Safety: Patient Unable To Answer (07/06/2024) Humiliation, Afraid, Rape, and Kick questionnaire Fear of Current or Ex-Partner: Patient unable to answer Emotionally Abused: Patient unable to answer Physically Abused: Patient unable to answer Sexually Abused: Patient unable to answer Housing Instability: Patient Unable To Answer (07/06/2024) Housing Instability Housing Instability: Patient unable to answer BP 150/88 Pulse 101 Temp 36.5 C (97.7 F) (Oral) Resp 20 SpO2 95% MENTAL STATUS EXAMINATION: Diagnosis: Delirium secondary to general medical condition Consider early onset Alzheimer's dementia with delirium Treatment plan: I recommend that we continue the current medications/medical management. After medical clearance I would recommend that the patient be discharged to a memory care unit or a assisted that is well-versed in management of memory impaired patients. At this time the patient does not have the criteria for admission to an inpatient psychiatric unit. Thank you for the consult. I will sign off. Kindly call with questions or comments or if the situation changes. ? This note is created with the assistance of a speech recognition program. While intending to generate a document that actually reflects the content of the visit, the document can still have some errors including those of syntax and sound a like substitutions which may escape proof reading. In such instances, actual meaning can be extrapolated by contextual diversion. Mina Franks MD 07/11/2024 1:11 PM Associated Order(s): IP CONSULT TO NEUROLOGY Images from the original note were not included. [facility] Neurology General Neurology Consult Note Primary Neurology service: [phone] Chief Complaint: HPI: Noé Jeffery is a 58 y.o. 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 He follows up with [facility] Neurology and had underwent a heavy metal screen, [facility] analysis, MRI 2021 showing severe generalized volume loss and hippocampal volumes at the 1st percentile of his age group. Patient had been having forgetfulness and increase cognition since 2021 but per family was driving and functioning normally up until having a fall June 09 after which he started having behavioral changes and would walk outside in the called and easily angry, that time workup was negative and nothing was reported on a CT per family. And that is when his mental status took a sharp decline, Patient had presented to ED in [place] June 18 after waking up not oriented and delusional. Then June 25 he woke up again not knowing where he is delusional thinking his sister was an intruder so he was brought to [facility] and discharged later that evening. He was seen by social service assistant referred to a mental health center and per family his mental status had worsened and they felt he was being overmedicated with Benadryl. 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 The impression there was no infectious or metabolic etiology so patient was transferred to [facility] for higher level of care. On my evaluation patient was restless fidgeting and did not allow me to speak him or enter the room, he would tell me his family members names what refused to tell me his name asked me to leave the room. I could not do any assessment Dawes test or neurological exam. Per family patient had not received his morning medication. History: Past Medical History/Surgical History: Active Ambulatory Problems Diagnosis Date Noted Laceration of left ulnar artery 11/24/2019 Resolved Ambulatory Problems Diagnosis Date Noted No Resolved Ambulatory Problems Past Medical History: Diagnosis Date GERD (gastroesophageal reflux disease) High cholesterol Perforated sigmoid colon (CMS-HCC) Family History: Family History Problem Relation Age of Onset Breast cancer Sister Social History: Social History Socioeconomic History Marital status: Spouse name: Not on file Number of children: Not on file Years of education: Not on file Highest education level: Not on file Occupational History Not on file Tobacco Use Smoking status: Never Smokeless tobacco: Never Substance and Sexual Activity Alcohol use: No Drug use: No Sexual activity: Defer Partners: Female Other Topics Concern Not on file Social History Narrative Not on file Social Drivers of Health Financial Resource Strain: Not on file Food Insecurity: No Food Insecurity (06/24/2024) Hunger Screening Food Insecurity - Worry: Never True Food Insecurity - Inability: Never True Transportation Needs: Not on file Physical Activity: Not on file Stress: Not on file Social Connections: Not on file Interpersonal Safety: Not on file Housing Instability: Not on file Medications: Unknown Allergies: Allergies Allergen Reactions Diphenhydramine Abnormal Behavior Review of Systems: Review of Systems Unable to perform ROS: Other Physical Exam Vital Signs: There were no vitals filed for this visit. General: Restless fidgety. Neurologic: Mental status: Alert, oriented to self family otherwise did not respond to my questions. Cranial nerves: II: Unable to assess III, IV, : extraocular movements intact; no ptosis. No nystagmus. VIII : Patient appears to be hearing questions no difficulties. XI: Patient elevates shoulder Unable to assess cranial nerves Motor: Moving all extremities no tremors or abnormal movements noted Pertinent testing: Pertinent Labs: Imaging: Other Testing: Assessment and Plan: This is a 58-year-old male with past history of complex sleep apnea on CPAP, major cognitive disorder with bio markers confirmed early onset Alzheimer's established in [facility] October 2022 in addition to hyperlipidemia, GERD, dm 2. Patient was transferred found [facility] for higher level of care and workup of sharp decline in cognition since May 2024. Patient had presented multiple times to the ED and admitted [facility] for delusional thinking/hallucinations/agitatio n. On evaluation patient was fidgety restless and requested that I leave the room so could not do any further assessment with the patient however patient was moving all extremities and could tell me family members names. 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 Brain MRI. Routine EEG. Consider Neurosurgery evaluation Per family patient does not tolerate Rexulti and Benadryl so would recommend avoiding. Resume home medications once reconciled. Khalif Valerio MD PGY-1 Neurology [facility] 07/06/24 9:[address] Sofia This patient is being followed by the Neurology Resident service. Contact attending directly during these hours: Tuesday to 7:30-8:30 A.M. to Tuesday 12-1:00 p.m. Primary Neurology service: [phone] Consult neurology service: [phone] Resident Stroke Service: [phone] If the patient belongs to the Stroke [facility] service please contact the Stroke [facility] directly. Cosigned by Kelley Sofia MD at 07/06/2024 11:32 PM EST Associated attestation - Kelley Sofia MD - 07/06/2024 11:32 PM EST Kelley Sofia MD Neurology documented in this encounter [facility] 07-20-2024 Hospital Discharge instructions Suzanne Shipley MD - 07/20/2024 3:28 PM EST 07/30 at 12:40 Hospital follow up with Fidelina Fisher CNP [facility] [place] [id number] [place] [address] Please follow up with Neurosurgery for colitis cyst follow-up in 2-3 weeks. Please follow up with Neurology for outpatient EEG monitoring and medication adjustments. 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 Please follow up with PCP within 1 week with repeat CBC, BMP check. Lisandra Beckett - 07/20/2024 10:39 AM EST YOUR SCHEDULED APPOINTMENTS Please make note of this in your schedule as to not miss or call to reschedule. Thank you! 07/30 at 12:40 Hospital follow up with Fidelina Fisher CNP [facility] TBI [id number] [place] [address] Pt. should bring the following to appointment; Discharge paperwork Picture ID, Insurance card, co-pay, and all current medications in their bottles. Please provide a 24 hour notice for cancellation. Failure to do so will result in the practice declining to see pt. in the future. If you have insurance copay you must bring with you to the appointment. Please arrive about 15 minutes prior to appointment for check-in/registration. For NEW PATIENT APPOINTMENTS, please arrive 30 minutes early to complete new patient paperwork. For NEW patients, MD will not prescribe intermediate pain medication. The following attachments cannot be sent through Care Everywhere.Dementia Discharge Instructions (South Korean)Time to stop driving? (South Korean)Dementia (including Alzheimer disease) ([place] Korean)documented in this encounter [facility] 07-20-2024 Plan of care note Problem: Safety Goal: Patient will be injury free during hospitalization Description: INTERVENTIONS: 1. Assess patient's risk for falls and implement fall prevention plan of care per policy 2. Provide and maintain a safe environment 3. Proper use of double Identifiers 4. Medication administration using the 5 rights 5. Hand hygiene 6. Specimens are labeled at the bedside 7. Instruct patient/ patient passenger relations representative about use of safety devices 8. Include patient/ patient passenger relations representative in decisions related to safety Outcome: Progressing Note: Evaluation of progress towards goal: Patient remains injury free at this time. Problem: Knowledge Deficit Goal: Patient/patient passenger relations representative demonstrates understanding of disease process, treatment plan, medications, and discharge instructions Description: INTERVENTIONS 1. Complete learning assessment and assess knowledge base 2. Provide teaching at level of understanding 3. Provide teaching via preferred learning method(s) Outcome: Progressing Note: Evaluation of progress towards goal: Patient is A&Ox1, reoriented when needed. Problem: Discharge Planning Goal: Discharge to post-acute care, other facility, or home with appropriate resources Description: Patient's goal is: INTERVENTIONS 1. Conduct assessment to determine patient/family and health care team treatment goals, and need for post-acute services based on payer coverage, community resources, and patient preferences, and barriers to discharge 2. Coordinate with Social work, Care Navigation, and Utilization Review to arrange appropriate level of services according to patient's needs based on patient preference and payer coverage in collaboration with the physician and health care team 3. Address psychosocial, clinical, and financial barriers to discharge as identified in assessment in conjunction with the patient/family and health care team 4. Consult appropriate ancillary services (i.e.. PT/OT/ST, etc) as needed 5. Communicate with and update the patient/family, physician, and health care team regarding progress on the discharge plan 6. Identify discharge learning needs (meds, wound care, etc). 7. Arrange for needed discharge transportation as appropriate Outcome: Progressing Note: Evaluation of progress towards goal: Patient working with care blessing for discharge plan. Problem: Neurological Deficit Goal: Neurological status is stable or improving Description: Patient's goal is: INTERVENTIONS 1. Complete Neurological assessment as indicated/ordered 2. Initiate measures to prevent increased intracranial pressure 3. Monitor and assess patient's level of consciousness, motor function, sensory function, and level of assistance needed for ADLs 4. Monitor and report changes from baseline 5. Maintain blood pressure and fluid volume within ordered parameters to optimize cerebral perfusion and minimize risk of hemorrhage 6. Monitor labs and diagnostic tests 7. Administer anti-seizure medications as ordered 8. Maintain airway, patient safety and administer oxygen as ordered 9. Monitor patient for seizure activity, document and report duration and description of seizure to LIP 10. If seizure occurs, turn patient to side and suction secretions as needed 11. Reorient patient post seizure 12. Seizure pads on all 4 side rails 13. Instruct patient/family to notify RN of any seizure activity 14. Instruct patient/family to call for assistance with activity based on assessment 15. Utilize bleeding precautions if thrombolytic given Outcome: Progressing Note: Evaluation of progress towards goal: Patient's neurological status is stable. Problem: Moderate - High Risk Fall Score Description: Gallegos Fall Score of =/> [address] [facility] Assessment Goal: Patient should be free from fall Description: Interventions: 1. [place] to environment 2. Hourly rounds addressing the 4 P's (Pain, Positioning, Possessions, Potty) 3. Clear area of hazards (spills, clutter, electrical cords, unnecessary equipment) 4. Place equipment (bed & TV controls, call light, phone, urinal) within reach 5. Encourage patient to wear glasses and hearing aides as appropriate 6. Maintain bed in lowest position 7. Lock wheels on bed/wheelchair 8. Provide adequate lighting, including night light 9. Assess need for additional bedding, food/fluids, pain med's prior to sleep/routinely 10. Provide gripper slippers or personal non-skid footwear 11. Teach patient and patient passenger relations representative to maintain environment for safety and engage in all aspects of fall prevention program 12. Remind patient to call for help before getting out of bed 13. Initiate bed/chair/exit alarms supportive devices as appropriate, (chair wedge, no-skid floor mat, raised edge mattress, hip protectors) 14. Locate patient bed assignment for optimal visualization 15. Evaluate and identify Safe Patient Handling Equipment needs 16. Provide supervision when out of bed or chair 17. Utilize gait belt as needed to assist with ambulation 18. Place adaptive equipment (cane, walker) within reach 19. Request patient passenger relations representative bring adaptive equipment/mobility aids from home or obtain and provide as needed 20. Consult pharmacy regarding effects of med's affecting mobility, cognition, and alternatives 21. Obtain physician order for PT if risk factors associated with mobility are present 22. Obtain physician order for OT as appropriate 23. Utilize diversional activities 24. Educate patient and patient passenger relations representative how to maintain a safe environment during visitation times (notify nurse prior to leaving bedside) 25. Consider appropriateness of medical or non-medical reception specialist 26. Set up voiding schedule as appropriate (every 2 hours) Outcome: Progressing Note: Evaluation of progress towards goal: Patient remains free from falls at this time. [facility] 07-20-2024 Telephone encounter Note Spoke to , Kari. Pt is currently at [facility]. Pt is being denied an admit to rehab facility. I am unable to view notes from that hospital. Suggestion given to [facility] as [facility] does not have a TBI clinic. Family will have to work with staff at [facility]. Verbalized understanding. [facility] 07-20-2024 Miscellaneous Notes Spoke to , Kari. Pt is currently at [facility]. Pt is being denied an admit to rehab facility. I am unable to view notes from that hospital. Suggestion given to [facility] as [facility] does not have a TBI clinic. Family will have to work with staff at [facility]. Verbalized understanding. Spoke with Dr Harmon (sp?) from [facility] regarding patient. Family is requesting transfer to a [facility] TBI center, inpatient. I advised that Dr Guerra cannot assist in this matter. Patient mailbox is full unable to leave message Patient returned your call and can be reached at: Call patient at: on cell [phone] (home) [phone] (cell) documented in this encounter [facility] 07-20-2024 Progress note Formatting of t his note might be different from the original. DISCHARGE PLANNING NOTE 07/30 at 12:40 Hospital follow up with Fidelina Fisher CNP [facility] TBI [address] [place], [place] [id number] [facility] 07-20-2024 Hospital course Narrative Images from the original note were not included. 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 Early-onset Alzheimer's disease- established at [facility] in October 2022 Myoclonic jerking movements responsive to Depakote CONSULTANTS: Consulting Providers Provider Service Specialty Mina Franks MD Psychiatry Psychiatry Jessica Johnson MD -- Neurology Kelley Sofia MD -- Neurology PROCEDURES PERFORMED: Lumbar puncture HOSPITAL COURSE SUMMARY: Per HPI: 59-year-old male patient with Confirmed early onset Alzheimer's disease established in [facility] October 2022, patient had fall June 09, 2025 after which he started having behavioral changes and sharp decline in his cognitive abilities. Acute decline in mental status after a fall - traumatic brain injury, diffuse axonal injury in a patient with pre-existing early-onset Alzheimer's disease. Agitation and psychosis- resolved. Currently not in any restraints, off restrain -MRI suggestive of diffuse axonal injury. Lumbar puncture negative for meningitis, Lyme VDRL, HIV. Psychiatry recommended Depakote Sprinkles. Does not qualify for inpatient psych admission. EEG did not show any epileptic focus. 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 Patient is alert, oriented to self. Ambulatory. Denied any chest pain or shortness a breath, no nausea, no vomiting tolerating oral diet ambulating in the hallway. No new focal neurologic deficits. He has been evaluated by Neurology and Psychiatry. Patient has been medically stable for discharge for few days, however placement was issue. Multiple TBI/inpatient rehab was contacted by social work without acceptance. Per family request I reconsulted Neurology- they are okay with outpatient TBI clinic follow-up and management. Also contacted [facility], per family request. Spoke with Dr.Mary Mcdermott, neurology, as patient does not meet inpatient criteria he was not accepted. Care was also discussed with their previous neurologist office Dr. Guerra who had made initial diagnosis of early-onset dementia. Updated PCP regarding the current plan and management. Regarding the Colloid cyst and EEG- discussed with Dr. Sofia, no acute concerns. Agreeable for outpatient workup. I also spoke with Neurosurgery [employer] Victorina Marcelino, and have made arrangements for outpatient follow-up. Patient has not exhibited any violent/aggressive behavior in the past 3 days, has been calm and comfortable. Addendum: Patient has been evaluated by Neurosurgery. Opined that it is a small cyst. Outpatient follow-up, no acute intervention planned. Conselled importance of compliance of discharge instructions and medications in overall improvement in long-term survival. Exam: BP 119/68 Pulse 74 Temp 36.4 C (97.5 F) (Oral) Resp 14 Wt 83.9 kg (184 lb 15.5 oz) SpO2 99% BMI 30.78 kg/m No intake or output data in the 24 hours ending 07/20/24 1618 Physical Exam Constitutional: General: He is not in acute distress. Appearance: Normal appearance. He is well-developed. He is not diaphoretic. HENT: Head: Normocephalic and atraumatic. Mouth/Throat: Pharynx: No oropharyngeal exudate. Eyes: Pupils: Pupils are equal, round, and reactive to light. Neck: Thyroid: No thyromegaly. Cardiovascular: Rate and Rhythm: Normal rate and regular rhythm. Heart sounds: No murmur heard. Pulmonary: Effort: Pulmonary effort is normal. No respiratory distress. Breath sounds: Normal breath sounds. No wheezing or rales. Abdominal: General: Bowel sounds are normal. There is no distension. Palpations: Abdomen is soft. Tenderness: There is no abdominal tenderness. Musculoskeletal: General: No tenderness. Normal range of motion. Cervical back: Normal range of motion and neck supple. Skin: General: Skin is warm and dry. Findings: No erythema. Neurological: Mental Status: He is alert. Mental status is at baseline. Cranial Nerves: No cranial nerve deficit. Psychiatric: Behavior: Behavior normal. Labs: No results found for this or any previous visit (from the past 48 hours). DISCHARGE INSTRUCTION: Disposition: Discharge to Home Condition:Stable Activity: activity as tolerated Diet: Adult nutrition supplements Adult diet Regular Texture Adult diet Follow up: Jae Lopez MD [address] [facility] [address] Schedule an appointment as soon as possible for a visit in 1 week(s) Jessica Johnson MD [address] [facility], [address] [facility] [address] Schedule an appointment as soon as possible for a visit in 2 week(s) 07/30 at 12:40 Hospital follow up with Fidelina Fisher CNP [facility] TBI [address] [place], [place] [id number] Please follow up with Neurosurgery for colitis cyst follow-up in 2-3 weeks. Please follow up with Neurology for outpatient EEG monitoring and medication adjustments. 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 Please follow up with PCP within 1 week with repeat CBC, BMP check. For most accurate medication list, please review the discharge medication summary. 72 minutes were spent on discharging this patient. This note was created with the assistance of a speech-recognition program. Although the intention is to generate a document that actually reflects the content of the visit, no guarantees can be provided that every mistake has been identified and corrected by editing. Electronically signed by: SUZANNE SHIPLEY MD, VLADIMIR, 07/20/2024 4:18 PM documented in this encounter [facility] 07-20-2024 Progress note Formatting of t his note might be different from the original. Confirmed with Taylor at [facility] she did receive the updated notes (neuro, PMR, PT/OT) that were faxed and uploaded to [facility]. She is almost finishing writing it up for physician review and will call us with their determination by 10am. 9:31 am Received call from Taylor at [facility] IPR-she reviewed updated notes with certified medical transcriptionist and they remain unable to accept after our 3rd request for review. She said he is doing too well functionally, does not need OT/PT services. She said after discussion with certified medical transcriptionist their facility would be of no benefit to the patient. This information was communicated to interdisciplinary team via epic chat [facility] 07-20-[facility]24 Telephone encounter Note Received transfer center request to discuss with referring physician. Briefly, this patient with baseline cognitive impairment (? Early AD) had a fall with closed head injury and behavioral changes post-fall. He is medically stable and behavior has improved. Referrals were made to multiple TBI rehab facilities and all declined. The family requests transfer to [facility] inpatient service for further cognitive evaluation and management. It sounds like the patient is appropriately managed thus far and has no ongoing inpatient care needs. Thus, hospital to hospital transfer is not likely to be beneficial. We discussed the 3 neurorehab centers in our network. Referring MD will confirm with bilingual patient support caseworker that referrals were sent to all 3. If the patient is discharged home or to SNF, we can potentially expedite an appointment with our PMR colleagues/TBI multidisciplinary clinic. I will alert Drs. Aguilar and Earl to the referral. Briana Mcdermott MD [facility] Work Phone: 07-20-2024 Miscellaneous Notes Received transfer center request to discuss with referring physician. Briefly, this patient with baseline cognitive impairment (? Early AD) had a fall with closed head injury and behavioral changes post-fall. He is medically stable and behavior has improved. Referrals were made to multiple TBI rehab facilities and all declined. The family requests transfer to [facility] inpatient service for further cognitive evaluation and management. It sounds like the patient is appropriately managed thus far and has no ongoing inpatient care needs. Thus, hospital to hospital transfer is not likely to be beneficial. We discussed the 3 neurorehab centers in our network. Referring MD will confirm with bilingual patient support caseworker that referrals were sent to all 3. If the patient is discharged home or to SNF, we can potentially expedite an appointment with our PMR colleagues/TBI multidisciplinary clinic. I will alert Drs. Aguilar and Earl to the referral. Briana Mcdermott MD documented in this encounter [facility] 07-20-2024 Progress note Formatting of t his note might be different from the original. DISCHARGE PLANNING NOTE Sent face sheet to [facility] for hospital transfer via secure fax to # [phone] [id number] 07-20-2024 Progress note Formatting of t his note might be different from the original. DISCHARGE PLANNING NOTE Discharge plan- awaiting responses from [facility] if they can accept. Tasked [facility] to send neuro note from yesterday to them again. Tasked [facility] to fax his face sheet to [facility] per physician request since she is calling them about a hospital to hospital transfer per families request. Leadership team aware. - NANCY PARRISH 07/20/24 8:19 AM Discussed patient and d/c planning with leadership team. Everyone in agreement with d/c today since per physician [facility] can not accept as a hospital transfer and [facility] IPR has denied as well. Physician and this engineering writer spoke with patient, and sister that is present re: d/c today and that patient will be going home with outpatient ST and an appointment has been made for a TBI clinic for follow up. Provided IMM to and explained. Leadership aware. - NANCY PARRISH 07/20/24 11:29 AM [facility] 07-20-2024 Progress note Formatting of t his note might be different from the original. DISCHARGE PLANNING NOTE Neuro Note sent to [facility] (P# [phone] ; F# [phone]) in [employer]port and via [employer]. [facility] 07-20-2024 Plan of care note Problem: Safety Goal: Patient will be injury free during hospitalization Description: INTERVENTIONS: 1. Assess patient's risk for falls and implement fall prevention plan of care per policy 2. Provide and maintain a safe environment 3. Proper use of double Identifiers 4. Medication administration using the 5 rights 5. Hand hygiene 6. Specimens are labeled at the bedside 7. Instruct patient/ patient passenger relations representative about use of safety devices 8. Include patient/ patient passenger relations representative in decisions related to safety Outcome: Progressing Note: Evaluation of progress towards goal: Pt remains free from injury and significant other at bedside Problem: Knowledge Deficit Goal: Patient/patient passenger relations representative demonstrates understanding of disease process, treatment plan, medications, and discharge instructions Description: INTERVENTIONS 1. Complete learning assessment and assess knowledge base 2. Provide teaching at level of understanding 3. Provide teaching via preferred learning method(s) Outcome: Progressing Note: Evaluation of progress towards goal: pt significant other states understanding of treatment plan and medications Problem: Discharge Planning Goal: Discharge to post-acute care, other facility, or home with appropriate resources Description: Patient's goal is: INTERVENTIONS 1. Conduct assessment to determine patient/family and health care team treatment goals, and need for post-acute services based on payer coverage, community resources, and patient preferences, and barriers to discharge 2. Coordinate with Social work, Care Navigation, and Utilization Review to arrange appropriate level of services according to patient's needs based on patient preference and payer coverage in collaboration with the physician and health care team 3. Address psychosocial, clinical, and financial barriers to discharge as identified in assessment in conjunction with the patient/family and health care team 4. Consult appropriate ancillary services (i.e.. PT/OT/ST, etc) as needed 5. Communicate with and update the patient/family, physician, and health care team regarding progress on the discharge plan 6. Identify discharge learning needs (meds, wound care, etc). 7. Arrange for needed discharge transportation as appropriate Outcome: Progressing Note: Evaluation of progress towards goal: plan to DC to SNF when medically stable Problem: Neurological Deficit Goal: Neurological status is stable or improving Description: Patient's goal is: INTERVENTIONS 1. Complete Neurological assessment as indicated/ordered 2. Initiate measures to prevent increased intracranial pressure 3. Monitor and assess patient's level of consciousness, motor function, sensory function, and level of assistance needed for ADLs 4. Monitor and report changes from baseline 5. Maintain blood pressure and fluid volume within ordered parameters to optimize cerebral perfusion and minimize risk of hemorrhage 6. Monitor labs and diagnostic tests 7. Administer anti-seizure medications as ordered 8. Maintain airway, patient safety and administer oxygen as ordered 9. Monitor patient for seizure activity, document and report duration and description of seizure to LIP 10. If seizure occurs, turn patient to side and suction secretions as needed 11. Reorient patient post seizure 12. Seizure pads on all 4 side rails 13. Instruct patient/family to notify RN of any seizure activity 14. Instruct patient/family to call for assistance with activity based on assessment 15. Utilize bleeding precautions if thrombolytic given Outcome: Progressing Note: Evaluation of progress towards goal: neurological status stable Problem: Moderate - High Risk Fall Score Description: Gallegos Fall Score of =/> 25 or indicated by [facility] Assessment Goal: Patient should be free from fall Description: Interventions: 1. [place] to environment 2. Hourly rounds addressing the 4 P's (Pain, Positioning, Possessions, Potty) 3. Clear area of hazards (spills, clutter, electrical cords, unnecessary equipment) 4. Place equipment (bed & TV controls, call light, phone, urinal) within reach 5. Encourage patient to wear glasses and hearing aides as appropriate 6. Maintain bed in lowest position 7. Lock wheels on bed/wheelchair 8. Provide adequate lighting, including night light 9. Assess need for additional bedding, food/fluids, pain med's prior to sleep/routinely 10. Provide gripper slippers or personal non-skid footwear 11. Teach patient and patient passenger relations representative to maintain environment for safety and engage in all aspects of fall prevention program 12. Remind patient to call for help before getting out of bed 13. Initiate bed/chair/exit alarms supportive devices as appropriate, (chair wedge, no-skid floor mat, raised edge mattress, hip protectors) 14. Locate patient bed assignment for optimal visualization 15. Evaluate and identify Safe Patient Handling Equipment needs 16. Provide supervision when out of bed or chair 17. Utilize gait belt as needed to assist with ambulation 18. Place adaptive equipment (cane, walker) within reach 19. Request patient passenger relations representative bring adaptive equipment/mobility aids from home or obtain and provide as needed 20. Consult pharmacy regarding effects of med's affecting mobility, cognition, and alternatives 21. Obtain physician order for PT if risk factors associated with mobility are present 22. Obtain physician order for OT as appropriate 23. Utilize diversional activities 24. Educate patient and patient passenger relations representative how to maintain a safe environment during visitation times (notify nurse prior to leaving bedside) 25. Consider appropriateness of medical or non-medical reception specialist 26. Set up voiding schedule as appropriate (every 2 hours) Outcome: Progressing Note: Evaluation of progress towards goal: pt remains free from falls and fall precautions are in place [facility] 07-19-2024 Progress note Formatting of t his note might be different from the original. DISCHARGE PLANNING NOTE Updates to [facility] (P# [phone] ; F# [phone]) -[facility] [employer] [facility] 07-19-2024 Progress note Formatting of t his note is different from the original. Occupational Therapy Treatment Discharge Recommendations OT Recommendations : Inpatient Rehab 6 Clicks: Daily Activity Putting on and taking off regular lower body clothing?: A little Bathing (including washing, rinsing, drying)?: A little Toileting, which includes using toilet, bedpan or urinal?: A little Putting on and taking off regular upper body clothing?: A little Taking care of personal grooming such as brushing teeth?: A little Eating meals?: None Scoring Daily Activity Raw Score: 19 CMS G Code Modifier: CK Therapy Plan Need for skilled Occupational Therapy to address deficits in ADL independence and functional mobility due to a status decline resulting from 07/19/24 1403 UE ROM UE ROM exercises performed? No OT Treatment/Interventions: ADL retraining, Cognitive reorientation, Balance, Bed mobility, Functional transfer training, Patient/family training, Home management, Functional activities, Equipment eval/education OT Frequency: 3-4days/week Assessment Patient Assessment Patient Response to Treatment: Progressing toward goals Visit RN Communication: Yes Medical Record Reviewed: Yes OT Type of Visit: Treatment Precautions Activity: ok for therapy per MARCI Rothman Equipment: gait belt Telemetry/Huc: No Oxygen Used: room air Other: fall risk, recent TBI with behavioral changes, Pain Assessment Pain Assessment: No/denies pain ADL / IADL Other: completed prior to tx; Home Management - IADL Other: completed prior to tx; Hearing / Speech / Vision Hearing: Within Functional Limits Speech: Within Functional Limits Cognition Overall Cognitive Status: Exceptions to Within Functional Limits Arousal/Alertness: Appropriate responses to stimuli Following Commands: Follows one step commands with repetition Interfering Components: Processing speed, Working memory Other: engaged in various cognitive tasks to increase processing speed, problem solving and working memory; pt able to write name w/out initial cuing, not able to write cat, dog w/request however able to write the word down w/cues for each letter, able to read short questions however unsure of level of comprehension, pt able to provide sister's name (who is in the room) when asked; required prompting to come up w/mother's name; educated sister on playing familar songs from pt's younger years, to encourage increased activity and interactions w/higher energy during the day to promote the ability to process and problem solve information; Bed Mobility Supine to Sit: Stand by assist (for safety awareness only otherwise I) Other: pt up in chair after tx Transfers Sit to Stand: Standby assist Stand to Sit: Standby assist Gait Gait Assistance: Contact guard assist Assistive Device: None Gait Distance: 70ftx2 and 15ftx2 Limiting Factors to Gait: Decreased safety, Cognition/difficulty following directions Balance Sitting Balance: Static: Good Sitting Balance: Dynamic: Good Standing Balance: Static: Fair Standing Balance: Dynamic: Fair Other: stood about 10mins while engaged in various dynamic reach and dynamic standing activities to increase steadiness and ablity to right self and problem solve when distracted; no major LOB however conts to require cuing to problem solve and to identify obstacles Activity Tolerance Endurance: Tolerates >30 minutes activity with rest breaks Plan Occupational Therapy Care Plan Occupational Therapy Care Plan (Active) Template: OT - Occupational Therapy Problem: Activity Tolerance Dates: Start: 07/13/24 Disciplines: OT Goal: No limitations to activity tolerance Dates: Start: 07/13/24 Expected End: 08/13/24 Description: Goal Description: Disciplines: OT Outcomes Date/Time User Outcome 07/19/24 1445 KWADWO Hogan/Jerome Progressing 07/17/24 1439 KWADWO Hogan/Jerome Progressing Problem: Bathing LB Dates: Start: 07/13/24 Disciplines: OT Goal: Patient will perform bathing LB Independently Dates: Start: 07/13/24 Expected End: 08/13/24 Description: Goal Description: Disciplines: OT Problem: Bathing UB Dates: Start: 07/13/24 Disciplines: OT Goal: Patient will perform bathing UB Independently Dates: Start: 07/13/24 Expected End: 08/13/24 Description: Goal Description: Disciplines: OT Problem: Cognition Dates: Start: 07/13/24 Disciplines: OT Goal: Improve cognition Dates: Start: 07/13/24 Expected End: 08/13/24 Description: Patient will demonstrate good safety, judgement and ability to independently execute steps necessary for ADL tasks. Disciplines: OT Outcomes Date/Time User Outcome 07/19/24 1445 Yoanna Han-Mahoney, KWADWO/L Progressing 07/17/24 1439 Yoanna Han-Mahoney, KWADWO/L Progressing Problem: Dressing LB Dates: Start: 07/13/24 Disciplines: OT Goal: Patient will perform dressing LB Independently Dates: Start: 07/13/24 Expected End: 08/13/24 Description: Goal Description: Disciplines: OT Problem: Dressing UB Dates: Start: 07/13/24 Disciplines: OT Goal: Patient will perform dressing UB Independently Dates: Start: 07/13/24 Expected End: 08/13/24 Description: Goal Description: Disciplines: OT Problem: Functional Mobility Dates: Start: 07/13/24 Disciplines: OT Goal: Patient will perform functional mobility Independently Dates: Start: 07/13/24 Expected End: 08/13/24 Description: Goal Description: Disciplines: OT Outcomes Date/Time User Outcome 07/19/24 1445 Yoanna Han-Mahoney, KWADWO/L Progressing 07/17/24 1439 Yoanna Han-Mahoney, KWADWO/L Progressing Problem: Grooming Dates: Start: 07/13/24 Disciplines: OT Goal: Patient will perform grooming Independently Dates: Start: 07/13/24 Expected End: 08/13/24 Description: Goal Description: Disciplines: OT Outcomes Date/Time User Outcome 07/17/24 1439 Yoanna Han-Mahoney, [place]/L Progressing Problem: Standing Balance Dates: Start: 07/13/24 Disciplines: OT Goal: Improve balance to normal Dates: Start: 07/13/24 Expected End: 08/13/24 Description: Normal dynamic balance. Disciplines: OT Outcomes Date/Time User Outcome 07/19/24 1445 Yoanna Han-Mahoney, [place]/L Progressing 07/17/24 1439 Yoanna Han-Mahoney, KWADWO/L Progressing Problem: Toilet Transfers Dates: Start: 07/13/24 Disciplines: OT Goal: Patient will perform toilet transfers Independently Dates: Start: 07/13/24 Expected End: 08/13/24 Description: Goal Description: Disciplines: OT Outcomes Date/Time User Outcome 07/17/24 1439 Yoanna Han-Mahoney, KWADWO/L Progressing Problem: Toileting Dates: Start: 07/13/24 Disciplines: OT Goal: Patient will perform toileting Independently Dates: Start: 07/13/24 Expected End: 08/13/24 Description: Goal Description: Disciplines: OT Outcomes Date/Time User Outcome 07/17/24 1439 Yoanna Han-Mahoney, KWADWO/L Progressing Problem: Transfers Dates: Start: 07/13/24 Disciplines: OT Goal: Patient will perform transfers Independently Dates: Start: 07/13/24 Expected End: 08/13/24 Description: Goal Description: Disciplines: OT Outcomes Date/Time User Outcome 07/19/24 1445 Yoanna Han-Mahoney, KWADWO/L Progressing 07/17/24 1439 Yoanna Han-Mahoney, SHELLFISH HARVESTER/L Progressing Occupational Therapy Care Plan (Resolved) There are no resolved problems. Principal Problem: Dementia with behavioral disturbance ([facility]) Active Problems: Altered mental status Status post colostomy, follow-up exam ([facility] Cosigned by MAYNOR Dillon/Jerome at 07/19/2024 3:13 PM EST Associated attestation - Veronica Gorman OTR/Jerome - 07/19/2024 3:13 PM EST I have reviewed and agree with this note and education documentation for this visit. [facility] [employer] [facility] 07-19-2024 Progress note Formatting of t his note is different from the original. Physical Therapy Treatment Discharge Recommendations PT Recommendations: Inpatient Rehab Inpatient Rehab Criteria: All inpatient rehab criteria expected to be met 6 Clicks: Basic Mobility Turning from your back to your side while in a flat bed without using bed rails?: None Moving from lying on your back to sitting on side of flat bed without using bed rails?: None Moving to and from bed to a chair (including w/c)?: A little Standing up from a chair using your arms (e.g. w/c or bedside chair)?: A little To walk in hospital room?: A little Climbing 3-5 steps with a railing?: A little Scoring 6 Clicks: Basic Mobility Raw Score: 20 CMS G Code Modifier: CJ Patient Response to Treatment: Slow progress, decreased activity tolerance Assessment Patient Assessment Patient Response to Treatment: Slow progress, decreased activity tolerance Visit RN Communication: Yes Medical Record Reviewed: Yes PT Type of Visit: Treatment Precautions Activity: ok for therapy per MARCI Rothman Equipment: gait belt Telemetry/Huc: Yes Oxygen Used: room air Other: fall risk, recent TBI with behavioral changes, intermittent use of restraints (days ago) Pain Assessment Pain Assessment: No/denies pain Pain Score: 0 Bed Mobility Other: NT, pt found ambulating in hallway with other staff. Pt left sitting up in bedside chair with light and tray near. Transfers Sit to Stand: Standby assist Stand to Sit: Standby assist Toilet Transfers: Standby assist Other: cues for safety awareness. Gait Base of Support: Within Functional Limits Pattern: Decreased marty, R Decreased foot clearance, L Decreased foot clearance Gait Assistance: Contact guard assist Assistive Device: None Gait Distance: 70' x2 + 15' x2 Limiting Factors to Gait: Decreased safety, Cognition/difficulty following directions Other: 15' x2 traversing obstacle course of soft items under feet and stepping over 12 object, performed twice. Balance Sitting Balance: Static: Good Sitting Balance: Dynamic: Good Standing Balance: Static: Fair (-) Standing Balance: Dynamic: Fair Other: pt stood for approx. 10 minutes on 2 inch foam pad performing balloon volley reaching in and outside CHIO, multiple LOB mostly to the left and anteriorly. pt demonstrated good righting reactions throughout requiring ocassional assist to correct increasing up to Mod assist. Activity Tolerance Endurance: Tolerates >30 minutes activity with rest breaks Other: rest breaks as needed Plan Physical Therapy Care Plan Physical Therapy Care Plan (Active) Template: PT - Physical Therapy Problem: Activity Tolerance Dates: Start: 07/13/24 Disciplines: PT Goal: Tolerate > 30 minutes of activity WITH rest breaks Dates: Start: 07/13/24 Expected End: 07/27/24 Description: Goal Description: Patient to perform functional range / strength exercises to improve functional strength, balance and activity tolerance for improved independence and safety with mobility. Disciplines: PT Outcomes Date/Time User Outcome 07/19/24 145 Vinod Vaca PTA Progressing 07/17/24 1443 Vinod Vaca PTA Progressing Goal Note filed on 07/19/24 145 by Vinod Vaca PTA Evaluation of progress towards goal: Problem: Gait Dates: Start: 07/13/24 Disciplines: PT Goal: Patient will perform gait Independently Dates: Start: 07/13/24 Expected End: 07/27/24 Description: Without AD >500ft for community mobility Disciplines: PT Outcomes Date/Time User Outcome 07/19/24 145 Vinod Vaca PTA Progressing 07/17/24 1443 Vinod Vaca PTA Progressing Goal Note filed on 07/19/24 145 by Vinod Vaca PTA Evaluation of progress towards goal: Problem: Stairs/Curb Dates: Start: 07/13/24 Disciplines: PT Goal: Patient will perform stairs/curb with Modified [place] Dates: Start: 07/13/24 Expected End: 07/27/24 Description: __flight___steps,__x1___hand rails Goal Description: Disciplines: PT Problem: Standing Balance Dates: Start: 07/13/24 Disciplines: PT Goal: Improve balance to good Dates: Start: 07/13/24 Expected End: 07/27/24 Description: Without UE support Disciplines: PT Outcomes Date/Time User Outcome 07/19/24 145 Vinod Vaca PTA Progressing 07/17/24 1443 Vinod Vaca PTA Progressing Goal Note filed on 07/19/24 145 by Vinod Vaca PTA Evaluation of progress towards goal: Problem: Transfers Dates: Start: 07/13/24 Disciplines: PT Goal: Patient will perform transfers Independently Dates: Start: 07/13/24 Expected End: 07/27/24 Description: Goal Description: Disciplines: PT Outcomes Date/Time User Outcome 07/19/24 145 Vinod Vaca PTA Progressing 07/17/24 1443 Vinod Vaca PTA Progressing Goal Note filed on 07/19/24 145 by Vinod Vaca PTA Evaluation of progress towards goal: Physical Therapy Care Plan (Resolved) There are no resolved problems. Principal Problem: Dementia with behavioral disturbance ([facility]) Active Problems: Altered mental status Status post colostomy, follow-up exam ([facility]) Cosigned by Jose Gorman PT at 07/19/2024 3:14 PM EST Associated attestation - Jose Gorman, PT - 07/19/2024 3:14 PM EST I have reviewed and agree with this note and education documentation for this visit. [facility] [employer] [facility] 07-19-2024 Plan of care note Problem: Safety Goal: Patient will be injury free during hospitalization Description: INTERVENTIONS: 1. Assess patient's risk for falls and implement fall prevention plan of care per policy 2. Provide and maintain a safe environment 3. Proper use of double Identifiers 4. Medication administration using the 5 rights 5. Hand hygiene 6. Specimens are labeled at the bedside 7. Instruct patient/ patient passenger relations representative about use of safety devices 8. Include patient/ patient passenger relations representative in decisions related to safety Outcome: Progressing Note: Evaluation of progress towards goal: Patient remains injury free at this time. Problem: Knowledge Deficit Goal: Patient/patient passenger relations representative demonstrates understanding of disease process, treatment plan, medications, and discharge instructions Description: INTERVENTIONS 1. Complete learning assessment and assess knowledge base 2. Provide teaching at level of understanding 3. Provide teaching via preferred learning method(s) Outcome: Progressing Note: Evaluation of progress towards goal: Patient has alzheimer and has confusion at baseline. Reoriented as needed. Problem: Discharge Planning Goal: Discharge to post-acute care, other facility, or home with appropriate resources Description: Patient's goal is: INTERVENTIONS 1. Conduct assessment to determine patient/family and health care team treatment goals, and need for post-acute services based on payer coverage, community resources, and patient preferences, and barriers to discharge 2. Coordinate with Social work, Care Navigation, and Utilization Review to arrange appropriate level of services according to patient's needs based on patient preference and payer coverage in collaboration with the physician and health care team 3. Address psychosocial, clinical, and financial barriers to discharge as identified in assessment in conjunction with the patient/family and health care team 4. Consult appropriate ancillary services (i.e.. PT/OT/ST, etc) as needed 5. Communicate with and update the patient/family, physician, and health care team regarding progress on the discharge plan 6. Identify discharge learning needs (meds, wound care, etc). 7. Arrange for needed discharge transportation as appropriate Outcome: Progressing Note: Evaluation of progress towards goal: Patient's family working with social work for dc plan. Problem: Neurological Deficit Goal: Neurological status is stable or improving Description: Patient's goal is: INTERVENTIONS 1. Complete Neurological assessment as indicated/ordered 2. Initiate measures to prevent increased intracranial pressure 3. Monitor and assess patient's level of consciousness, motor function, sensory function, and level of assistance needed for ADLs 4. Monitor and report changes from baseline 5. Maintain blood pressure and fluid volume within ordered parameters to optimize cerebral perfusion and minimize risk of hemorrhage 6. Monitor labs and diagnostic tests 7. Administer anti-seizure medications as ordered 8. Maintain airway, patient safety and administer oxygen as ordered 9. Monitor patient for seizure activity, document and report duration and description of seizure to LIP 10. If seizure occurs, turn patient to side and suction secretions as needed 11. Reorient patient post seizure 12. Seizure pads on all 4 side rails 13. Instruct patient/family to notify RN of any seizure activity 14. Instruct patient/family to call for assistance with activity based on assessment 15. Utilize bleeding precautions if thrombolytic given Outcome: Progressing Note: Evaluation of progress towards goal: Patient's neuro status is stable. Problem: Moderate - High Risk Fall Score Description: Gallegos Fall Score of =/> [address] [facility] Assessment Goal: Patient should be free from fall Description: Interventions: 1. [place] to environment 2. Hourly rounds addressing the 4 P's (Pain, Positioning, Possessions, Potty) 3. Clear area of hazards (spills, clutter, electrical cords, unnecessary equipment) 4. Place equipment (bed & TV controls, call light, phone, urinal) within reach 5. Encourage patient to wear glasses and hearing aides as appropriate 6. Maintain bed in lowest position 7. Lock wheels on bed/wheelchair 8. Provide adequate lighting, including night light 9. Assess need for additional bedding, food/fluids, pain med's prior to sleep/routinely 10. Provide gripper slippers or personal non-skid footwear 11. Teach patient and patient passenger relations representative to maintain environment for safety and engage in all aspects of fall prevention program 12. Remind patient to call for help before getting out of bed 13. Initiate bed/chair/exit alarms supportive devices as appropriate, (chair wedge, no-skid floor mat, raised edge mattress, hip protectors) 14. Locate patient bed assignment for optimal visualization 15. Evaluate and identify Safe Patient Handling Equipment needs 16. Provide supervision when out of bed or chair 17. Utilize gait belt as needed to assist with ambulation 18. Place adaptive equipment (cane, walker) within reach 19. Request patient passenger relations representative bring adaptive equipment/mobility aids from home or obtain and provide as needed 20. Consult pharmacy regarding effects of med's affecting mobility, cognition, and alternatives 21. Obtain physician order for PT if risk factors associated with mobility are present 22. Obtain physician order for OT as appropriate 23. Utilize diversional activities 24. Educate patient and patient passenger relations representative how to maintain a safe environment during visitation times (notify nurse prior to leaving bedside) 25. Consider appropriateness of medical or non-medical reception specialist 26. Set up voiding schedule as appropriate (every 2 hours) Outcome: Progressing Note: Evaluation of progress towards goal: Patient remains free from falls. [id number] 07-19-2024 Consult note Formatting of th is note is different from the original. Images from the original note were not included. [facility] Neurology General Neurology Consult Note Primary Neurology service: [phone] Patient - Noé Jeffery Age - 59 y.o. - 1965 Date of Admission - 07/06/2024 7:28 AM Chief Complaint: TBI HPI: Noé Jeffery is a 59 y.o. year old male for whom Neurology was consulted for reevaluation after TBI. 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 He follows up with [facility] Neurology and had underwent a heavy metal screen, [facility] analysis, MRI 2021 showing severe generalized volume loss and hippocampal volumes at the 1st percentile of his age group. Presented to the hospital 07/06 as a transfer from an outside hospital for worsening forgetfulness and cognitive decline after a fall. Our service followed up with the patient and after obtaining an MRI of the brain with and without contrast we had found small foci of FLAIR hyperintensity signals multifocal with right frontal dominance and subcortical white matter and some juxtacortical/cortical without any evidence of restricted diffusion or abnormal contrast enhancement. In addition to diffuse cortical atrophy and at that time we had stated that these findings are suggestive for diffuse axonal injury/TBI and then the cortical atrophy is consistent with the his already established diagnosis of early dementia. LP was done and CSF analysis was normal and his serum Lyme testing, VDRL, HIV all came back negative and his B12 was greater than 500. Ammonia and Sharma were normal and thyroid were within normal limits. Our impression at that time was diffuse axonal injury in addition to the pre-existing diagnosis of early-onset dementia and our recommendations were to follow up outpatient Neurology and CSF autoimmune panel in addition to psychiatric evaluation and follow up with TBI clinic for cognitive rehabilitation. General neurology was consulted to re-evaluate the patient today per family request. On evaluation patient alert, oriented to self and situation only and was pleasant allowing me to contact full neurological exam and was able to participate in conversation telling me about his kids and answering my questions. No focal neurological deficits noted. Patient is able to tell that person at bedside is his in the other person is that his sister however unable to tell names, patient was able to tell me that he has 2 kids however unable to tell the names as well which is consistent with already established diagnosis of diffuse axonal injury/TBI. Patient was not in restraints and had not required any medication for agitation for the past few days. History: Past Medical History/Surgical History: Active Ambulatory Problems Diagnosis Date Noted Laceration of left ulnar artery 11/24/2019 Resolved Ambulatory Problems Diagnosis Date Noted No Resolved Ambulatory Problems Past Medical History: Diagnosis Date GERD (gastroesophageal reflux disease) High cholesterol Perforated sigmoid colon (CMS-HCC) Family History: Family History Problem Relation Age of Onset Breast cancer Sister Social History: Social History Socioeconomic History Marital status: Spouse name: Not on file Number of children: Not on file Years of education: Not on file Highest education level: Not on file Occupational History Not on file Tobacco Use Smoking status: Never Smokeless tobacco: Never Substance and Sexual Activity Alcohol use: No Drug use: No Sexual activity: Defer Partners: Female Other Topics Concern Not on file Social History Narrative Not on file Social Drivers of Health Financial Resource Strain: Not on file Food Insecurity: Patient Unable To Answer (07/06/2024) Hunger Screening Food Insecurity - Worry: Patient unable to answer Food Insecurity - Inability: Patient unable to answer Transportation Needs: Patient Unable To Answer (07/06/2024) PRAPARE - Transportation Lack of Transportation (Medical): Patient unable to answer Lack of Transportation (Non-Medical): Patient unable to answer Physical Activity: Not on file Stress: Not on file Social Connections: Not on file Interpersonal Safety: Patient Unable To Answer (07/06/2024) Humiliation, Afraid, Rape, and Kick questionnaire Fear of Current or Ex-Partner: Patient unable to answer Emotionally Abused: Patient unable to answer Physically Abused: Patient unable to answer Sexually Abused: Patient unable to answer Housing Instability: Patient Unable To Answer (07/06/2024) Housing Instability Housing Instability: Patient unable to answer Medications: Unknown Allergies: Allergies Allergen Reactions Diphenhydramine Abnormal Behavior Review of Systems: Review of Systems Neurological: Negative for dizziness, seizures, syncope, facial asymmetry, speech difficulty, weakness, light-headedness, numbness, headaches, coarse tremors, tremors and dysesthesia. Psychiatric/Behavioral: Positive for confusion. Negative for self-injury and suicidal ideas. Physical Exam Vital Signs: Vitals: 07/19/24 1211 BP: 97/70 Pulse: 83 Resp: 16 Temp: 36.6 C (97.8 F) SpO2: 97% General: Normotensive, in no acute distress. Neurological Exam Mental Status Alert. Oriented only to person and situation. Patient was able to tell me that his sister is his sister but unable to tell names. Patient was able to also tell me that he has 2 kids however unable to tell the names as well. Patient was able to identify his . Patient had not used any as needed medication for agitation recently. And is now off restraints.. Cranial Nerves CN II: Visual acuity is normal. Visual montez full to confrontation. CN III, IV, : Extraocular movements intact bilaterally. Normal lids and orbits bilaterally. Pupils equal round and reactive to light bilaterally. CN V: Facial sensation is normal. CN VII: Full and symmetric facial movement. CN VIII: Hearing is normal. CN IX, X: Palate elevates symmetrically. Normal gag reflex. CN XI: Shoulder shrug strength is normal. CN XII: Tongue midline without atrophy or fasciculations. Motor Strength is 5/5 throughout all four extremities. Sensory Sensation is intact to light touch, pinprick, vibration and proprioception in all four extremities. Reflexes Deep tendon reflexes are 2+ and symmetric in all four extremities. Coordination [id number], rapid alternating movements and [id number] normal bilaterally without dysmetria. Gait Deferred. Psychiatric evaluation: Patient had normal mode with no homicidal or suicidal ideation. Patient denied visual/auditory hallucinations and appeared to be attentive to conversation. Patient had normal affect and normal speech. Patient was not agitated and was compliant with all testing and was answering questions and cooperating with conversation. Patient did display impaired cognition and memory with impaired recent and remote memory. Medications Scheduled: divalproex sprinkle, 500 mg, oral, Q12H JAREK donepeziL, 5 mg, oral, Nightly doxycycline, 100 mg, oral, BID DULoxetine, 20 mg, oral, Daily enoxaparin (LOVENOX) injection, 40 mg, subcutaneous, Daily melatonin, 5 mg, oral, Nightly nicotine, 1 patch, transdermal, Daily pantoprazole, 40 mg, oral, QAM AC QUEtiapine, 150 mg, oral, Nightly AND QUEtiapine, 50 mg, oral, Daily sodium chloride, 3 mL, intravenous, Q12H JAREK Infusions: As Needed: acetaminophen dextrose dextrose 50 % in water (D50W) glucagon (human recombinant) ondansetron ODT sennosides-docusate sodium sodium chloride sodium chloride ziprasidone Pertinent testing: Pertinent Labs: Imaging: MRI 07/08/2024: IMPRESSION: The high attenuation focus shown on brain CT from July 07 at the anterior aspect of the third ventricle 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 It is difficult to localize with certainty on the brain MRI and does not enhance. Specifically, there are no enhancing or aggressive brain lesions. Other Testing: EEG 07/08/2024: This study is abnormal. It shows evidences to indicate mild to moderate diffuse encephalopathy that may be correlated with a disorder involving both cortical and subcortical systems. Clinical correlation is recommended. Assessment and Plan: 58-year-old male with past history of complex sleep apnea on CPAP, major cognitive disorder with CSF biomarkers confirmed early onset diagnosis established in [facility] September 2022 but reportedly functional at home per family in addition to hyperlipidemia, GERD, dm 2. Patient was transferred from [facility] for higher level of care and workup for sharp cognitive decline since May 2024. Neurology consult was consulted for this patient and stated that the findings are consistent with diffuse axonal injury/TBI however we were reconsulted for re-evaluation. Assessment: Acute decline in mental status after a fall in May in the setting of early onset Alzheimer's disease possibly secondary to TBI/diffuse axonal injury Agitation - resolved Plan Follow up on autoimmune CSF analysis outpatient. Follow up outpatient Neurology Alzheimer dementia Clinic. Follow up outpatient TBI clinic. Avoid Ativan/Benadryl Rexulti Continue Psychiatry recommendation for medication No further plans from Neurology standpoint Khalif Valerio MD PGY-1 Neurology [facility] 07/19/24 1:[address] Sofia This patient is being followed by the Neurology Resident service. Contact attending directly during these hours: Tuesday to 7:30-8:30 A.M. to Tuesday 12-1:00 p.m. Primary Neurology service: [phone] Consult neurology service: [phone] Resident Stroke Service: [phone] If the patient belongs to the Stroke [facility] service please contact the Stroke [facility] directly. Cosigned by Kelley Sofia MD at 07/21/2024 9:42 AM EST Associated attestation - Kelley Sofia MD - 07/21/2024 9:42 AM EST Images from the original note were not included. I have discussed the case of Noé Jeffery, including pertinent history and exam findings with the resident. I have seen and examined the patient and the jimenez elements of the encounter have been performed by me. I agree with the assessment, plan and orders as documented by the resident with changes made to the note as needed. Lab Results Component Value Date LDLCALC 184 (H) 05/10/2016 No results found for: CHLPL Lab Results Component Value Date TRIG 157 (H) 05/10/2016 Lab Results Component Value Date HDL 46 05/10/2016 Lab Results Component Value Date LDLCALC 184 (H) 05/10/2016 No results found for: LABVLDL No components found for: LABA1C No components found for: EAG Lab Results Component Value Date [id number] 07/08/2024 Neurological work up: CT head CTA head and neck MRI brain 05/07/2022 hippocampal volume loss. White matter changes. 2 D echo Assessment and recommendations Delirium superimposed on baseline cognitive impairment Presyncope likely neurocardiogenic Hypotension Early-onset Alzheimer disease confirmed with bio markers at [facility] Upon examination patient is awake, is noted to have cognitive impairment, intermittently following commands, moving all extremities. 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 Additionally, white matter changes concerning for TBI. A CT brain showed a slightly asymmetric increased density at the left ICA terminus and left M1 segment of the MCA, though this is likely artifactual. Recommend outpatient follow up for surveillance. A spinal tap was unremarkable, and an autoimmune/paraneoplastic panel was negative. Additionally, HIV testing was nonreactive. The patient has a childhood history of seizures, characterized by transient, intermittent staring episodes, along with prior MRI findings concerning for hippocampal volume loss. Additionally, reports of transient, intermittent rhythmic jerking raise concern for myoclonus versus seizures. Notably, these symptoms have shown improvement with Depakote administration, further supporting an underlying epileptic or myoclonic process responsive to valproate therapy. The patient is currently on Depakote 500 mg BID, which I recommend continuing for now. A recent EEG was negative for seizures, but given the family's concern that the patient is not at his baseline, I recommend a repeat EEG on an outpatient basis to monitor for any evolving epileptiform activity and guide long-term management. Adjustments to the Depakote dose will be made accordingly based on findings. Discussed in detail with family at bedside. Patient to follow up with neurology on outpatient basis in 4-6 weeks. Neurology will sign off. Kelley Sofia MD Neurology This note is created with the assistance of a speech-recognition program. While intending to generate a document that actually reflects the content of the visit, the document can still have some errors including those of syntax and sound a- like substitutions which may escape proofreading. In such instances, actual meaning can be extrapolated by contextual derivation. [facility] Work Phone: 07-19-2024 Telephone encounter Note Spoke with Dr Harmon (sp?) from [facility] regarding patient. Family is requesting transfer to a [facility] TBI center, inpatient. I advised that Dr Guerra cannot assist in this matter. [facility] 07-19-2024 Progress note Formatting of t his note might be different from the original. DISCHARGE PLANNING NOTE Updates to [facility] (P# ; F# ) [facility] 07-19-2024 Progress note Formatting of t his note is different from the original. Images from the original note were not included. DISCHARGE PLANNING NOTE Discussed patient today during rounds. Plan-TBI center VS IPR. This engineering writer and floor Mgr spoke with patient's over the phone and his sister in his room re: d/c planning. Updated them that [facility] has denied. Offered to send referral to [facility] to see if they can accept as well as sending blanketed SNF referrals. They are in agreement with sending to [facility] at this time and will let us know today if they would like SNF referrals sent or if the back up plan would be home. Tasked [facility] to send referral to [facility]. Leadership team aware. Services Requested: Services Requested Patient expects to be discharged to:: TBI center VS IPR Discharge Disposition: Acute rehab Patient Goals: Goals: Goals (pt-stated) Evaluation of progress towards goal: TBI center vs IPR - NANCY PARRISH 07/19/24 10:42 AM This engineering writer and steel floor pan placing supervisor and Dr. Shipley spoke with patient, and sister re: d/c planning. They are aware that [facility] is still reviewing referral. Asked if SNF referrals can be sent and they declined stating they would like the physician to see if she can get him transferred to [facility] as a physician to physician transfer. Updated Leadership. If neither of these hospitals can accept then patient to d/c home with since SNF has been declined. - NANCY PARRISH 07/19/24 12:14 PM This engineering writer and floor mgr spoke with family to let them know [facility] has denied patient and that they recommend SNF for him. Tasked [facility] to send neuro note from today to [facility] to see if they can accept him with this updated note. Leadership aware. - NANCY PARRISH 07/19/24 3:21 PM [email or web address] 07-19-2024 Plan of care note Problem: Safety Goal: Patient will be injury free during hospitalization Description: INTERVENTIONS: 1. Assess patient's risk for falls and implement fall prevention plan of care per policy 2. Provide and maintain a safe environment 3. Proper use of double Identifiers 4. Medication administration using the 5 rights 5. Hand hygiene 6. Specimens are labeled at the bedside 7. Instruct patient/ patient passenger relations representative about use of safety devices 8. Include patient/ patient passenger relations representative in decisions related to safety Outcome: Progressing Note: Evaluation of progress towards goal: Problem: Knowledge Deficit Goal: Patient/patient passenger relations representative demonstrates understanding of disease process, treatment plan, medications, and discharge instructions Description: INTERVENTIONS 1. Complete learning assessment and assess knowledge base 2. Provide teaching at level of understanding 3. Provide teaching via preferred learning method(s) Outcome: Progressing Note: Evaluation of progress towards goal: Problem: Discharge Planning Goal: Discharge to post-acute care, other facility, or home with appropriate resources Description: Patient's goal is: INTERVENTIONS 1. Conduct assessment to determine patient/family and health care team treatment goals, and need for post-acute services based on payer coverage, community resources, and patient preferences, and barriers to discharge 2. Coordinate with Social work, Care Navigation, and Utilization Review to arrange appropriate level of services according to patient's needs based on patient preference and payer coverage in collaboration with the physician and health care team 3. Address psychosocial, clinical, and financial barriers to discharge as identified in assessment in conjunction with the patient/family and health care team 4. Consult appropriate ancillary services (i.e.. PT/OT/ST, etc) as needed 5. Communicate with and update the patient/family, physician, and health care team regarding progress on the discharge plan 6. Identify discharge learning needs (meds, wound care, etc). 7. Arrange for needed discharge transportation as appropriate Outcome: Progressing Note: Evaluation of progress towards goal: Problem: Neurological Deficit Goal: Neurological status is stable or improving Description: Patient's goal is: INTERVENTIONS 1. Complete Neurological assessment as indicated/ordered 2. Initiate measures to prevent increased intracranial pressure 3. Monitor and assess patient's level of consciousness, motor function, sensory function, and level of assistance needed for ADLs 4. Monitor and report changes from baseline 5. Maintain blood pressure and fluid volume within ordered parameters to optimize cerebral perfusion and minimize risk of hemorrhage 6. Monitor labs and diagnostic tests 7. Administer anti-seizure medications as ordered 8. Maintain airway, patient safety and administer oxygen as ordered 9. Monitor patient for seizure activity, document and report duration and description of seizure to LIP 10. If seizure occurs, turn patient to side and suction secretions as needed 11. Reorient patient post seizure 12. Seizure pads on all 4 side rails 13. Instruct patient/family to notify RN of any seizure activity 14. Instruct patient/family to call for assistance with activity based on assessment 15. Utilize bleeding precautions if thrombolytic given Outcome: Progressing Note: Evaluation of progress towards goal: [facility] 07-19-2024 Plan of care note Problem: Safety Goal: Patient will be injury free during hospitalization Description: INTERVENTIONS: 1. Assess patient's risk for falls and implement fall prevention plan of care per policy 2. Provide and maintain a safe environment 3. Proper use of double Identifiers 4. Medication administration using the 5 rights 5. Hand hygiene 6. Specimens are labeled at the bedside 7. Instruct patient/ patient passenger relations representative about use of safety devices 8. Include patient/ patient passenger relations representative in decisions related to safety Outcome: Progressing Note: Evaluation of progress towards goal: Problem: Knowledge Deficit Goal: Patient/patient passenger relations representative demonstrates understanding of disease process, treatment plan, medications, and discharge instructions Description: INTERVENTIONS 1. Complete learning assessment and assess knowledge base 2. Provide teaching at level of understanding 3. Provide teaching via preferred learning method(s) Outcome: Progressing Note: Evaluation of progress towards goal: Problem: Discharge Planning Goal: Discharge to post-acute care, other facility, or home with appropriate resources Description: Patient's goal is: INTERVENTIONS 1. Conduct assessment to determine patient/family and health care team treatment goals, and need for post-acute services based on payer coverage, community resources, and patient preferences, and barriers to discharge 2. Coordinate with Social work, Care Navigation, and Utilization Review to arrange appropriate level of services according to patient's needs based on patient preference and payer coverage in collaboration with the physician and health care team 3. Address psychosocial, clinical, and financial barriers to discharge as identified in assessment in conjunction with the patient/family and health care team 4. Consult appropriate ancillary services (i.e.. PT/OT/ST, etc) as needed 5. Communicate with and update the patient/family, physician, and health care team regarding progress on the discharge plan 6. Identify discharge learning needs (meds, wound care, etc). 7. Arrange for needed discharge transportation as appropriate Outcome: Progressing Note: Evaluation of progress towards goal: Problem: Neurological Deficit Goal: Neurological status is stable or improving Description: Patient's goal is: INTERVENTIONS 1. Complete Neurological assessment as indicated/ordered 2. Initiate measures to prevent increased intracranial pressure 3. Monitor and assess patient's level of consciousness, motor function, sensory function, and level of assistance needed for ADLs 4. Monitor and report changes from baseline 5. Maintain blood pressure and fluid volume within ordered parameters to optimize cerebral perfusion and minimize risk of hemorrhage 6. Monitor labs and diagnostic tests 7. Administer anti-seizure medications as ordered 8. Maintain airway, patient safety and administer oxygen as ordered 9. Monitor patient for seizure activity, document and report duration and description of seizure to LIP 10. If seizure occurs, turn patient to side and suction secretions as needed 11. Reorient patient post seizure 12. Seizure pads on all 4 side rails 13. Instruct patient/family to notify RN of any seizure activity 14. Instruct patient/family to call for assistance with activity based on assessment 15. Utilize bleeding precautions if thrombolytic given Outcome: Progressing Note: Evaluation of progress towards goal: [facility] 07-18-2024 Plan of care note Problem: Safety Goal: Patient will be injury free during hospitalization Description: INTERVENTIONS: 1. Assess patient's risk for falls and implement fall prevention plan of care per policy 2. Provide and maintain a safe environment 3. Proper use of double Identifiers 4. Medication administration using the 5 rights 5. Hand hygiene 6. Specimens are labeled at the bedside 7. Instruct patient/ patient passenger relations representative about use of safety devices 8. Include patient/ patient passenger relations representative in decisions related to safety Outcome: Progressing Note: Evaluation of progress towards goal: patient is injury free at this time. Problem: Knowledge Deficit Goal: Patient/patient passenger relations representative demonstrates understanding of disease process, treatment plan, medications, and discharge instructions Description: INTERVENTIONS 1. Complete learning assessment and assess knowledge base 2. Provide teaching at level of understanding 3. Provide teaching via preferred learning method(s) Outcome: Progressing Note: Evaluation of progress towards goal: Patient is A&Ox1, reoriented as needed. Problem: Discharge Planning Goal: Discharge to post-acute care, other facility, or home with appropriate resources Description: Patient's goal is: INTERVENTIONS 1. Conduct assessment to determine patient/family and health care team treatment goals, and need for post-acute services based on payer coverage, community resources, and patient preferences, and barriers to discharge 2. Coordinate with Social work, Care Navigation, and Utilization Review to arrange appropriate level of services according to patient's needs based on patient preference and payer coverage in collaboration with the physician and health care team 3. Address psychosocial, clinical, and financial barriers to discharge as identified in assessment in conjunction with the patient/family and health care team 4. Consult appropriate ancillary services (i.e.. PT/OT/ST, etc) as needed 5. Communicate with and update the patient/family, physician, and health care team regarding progress on the discharge plan 6. Identify discharge learning needs (meds, wound care, etc). 7. Arrange for needed discharge transportation as appropriate Outcome: Progressing Note: Evaluation of progress towards goal: Patient working with social work to figure out discharge plan. Problem: Neurological Deficit Goal: Neurological status is stable or improving Description: Patient's goal is: INTERVENTIONS 1. Complete Neurological assessment as indicated/ordered 2. Initiate measures to prevent increased intracranial pressure 3. Monitor and assess patient's level of consciousness, motor function, sensory function, and level of assistance needed for ADLs 4. Monitor and report changes from baseline 5. Maintain blood pressure and fluid volume within ordered parameters to optimize cerebral perfusion and minimize risk of hemorrhage 6. Monitor labs and diagnostic tests 7. Administer anti-seizure medications as ordered 8. Maintain airway, patient safety and administer oxygen as ordered 9. Monitor patient for seizure activity, document and report duration and description of seizure to LIP 10. If seizure occurs, turn patient to side and suction secretions as needed 11. Reorient patient post seizure 12. Seizure pads on all 4 side rails 13. Instruct patient/family to notify RN of any seizure activity 14. Instruct patient/family to call for assistance with activity based on assessment 15. Utilize bleeding precautions if thrombolytic given Outcome: Progressing Note: Evaluation of progress towards goal: Patient's numerological status is stable. Problem: Moderate - High Risk Fall Score Description: Gallegos Fall Score of =/> [address] [facility] Assessment Goal: Patient should be free from fall Description: Interventions: 1. [place] to environment 2. Hourly rounds addressing the 4 P's (Pain, Positioning, Possessions, Potty) 3. Clear area of hazards (spills, clutter, electrical cords, unnecessary equipment) 4. Place equipment (bed & TV controls, call light, phone, urinal) within reach 5. Encourage patient to wear glasses and hearing aides as appropriate 6. Maintain bed in lowest position 7. Lock wheels on bed/wheelchair 8. Provide adequate lighting, including night light 9. Assess need for additional bedding, food/fluids, pain med's prior to sleep/routinely 10. Provide gripper slippers or personal non-skid footwear 11. Teach patient and patient passenger relations representative to maintain environment for safety and engage in all aspects of fall prevention program 12. Remind patient to call for help before getting out of bed 13. Initiate bed/chair/exit alarms supportive devices as appropriate, (chair wedge, no-skid floor mat, raised edge mattress, hip protectors) 14. Locate patient bed assignment for optimal visualization 15. Evaluate and identify Safe Patient Handling Equipment needs 16. Provide supervision when out of bed or chair 17. Utilize gait belt as needed to assist with ambulation 18. Place adaptive equipment (cane, walker) within reach 19. Request patient passenger relations representative bring adaptive equipment/mobility aids from home or obtain and provide as needed 20. Consult pharmacy regarding effects of med's affecting mobility, cognition, and alternatives 21. Obtain physician order for PT if risk factors associated with mobility are present 22. Obtain physician order for OT as appropriate 23. Utilize diversional activities 24. Educate patient and patient passenger relations representative how to maintain a safe environment during visitation times (notify nurse prior to leaving bedside) 25. Consider appropriateness of medical or non-medical reception specialist 26. Set up voiding schedule as appropriate (every 2 hours) Outcome: Progressing Note: Evaluation of progress towards goal: Patient is free from falls at this time. [facility] Progress note Formatting of t his note might be different from the original. DISCHARGE PLANNING NOTE Referral sent to [facility] (P# [phone] ; F# [phone]) [facility] 07-18-2024 Telephone encounter Note Patient mailbox is full unable to leave message [facility] 07-18-2024 Progress note Formatting of t his note is different from the original. Images from the original note were not included. DISCHARGE PLANNING NOTE Discussed patient today during rounds. Patient's requested updates be sent to [facility]. Tasked [facility] to send. Leadership team aware as well as floor nurse. Barriers- acceptance, auth. Services Requested: Services Requested Patient expects to be discharged to:: home vs snf Patient Goals: Goals: Goals (pt-stated) Evaluation of progress towards goal: TBD-pending PT/OT eval - NANCY PARRISH 07/18/24 10:30 AM Still awaiting response from [facility] if they can accept patient. Leadership team aware. Floor mgr has spoken with family to update them. - NANCY PARRISH 07/18/24 2:50 PM [employer] [facility] 07-18-2024 Telephone encounter Note Patient returned your call and can be reached at: Call patient at: on cell [phone] (home) [phone] (cell) [facility] 07-18-2024 Telephone encounter Note -LVMTCB We are unable to assist in this matter. Pt last seen 04/2022 [facility] 07-18-2024 Miscellaneous Notes -LVMTCB We are unable to assist in this matter. Pt last seen 04/2022 Pt fell and is in [facility] and is requesting help with getting pt transferred to a [facility] facility Please call pts [phone] documented in this encounter [facility] 07-17-2024 Plan of care note Problem: Safety Goal: Patient will be injury free during hospitalization Description: INTERVENTIONS: 1. Assess patient's risk for falls and implement fall prevention plan of care per policy 2. Provide and maintain a safe environment 3. Proper use of double Identifiers 4. Medication administration using the 5 rights 5. Hand hygiene 6. Specimens are labeled at the bedside 7. Instruct patient/ patient passenger relations representative about use of safety devices 8. Include patient/ patient passenger relations representative in decisions related to safety Outcome: Progressing Note: Evaluation of progress towards goal: Patient will remain safe and free from injury during hospitalization. Problem: Discharge Planning Goal: Discharge to post-acute care, other facility, or home with appropriate resources Description: Patient's goal is: INTERVENTIONS 1. Conduct assessment to determine patient/family and health care team treatment goals, and need for post-acute services based on payer coverage, community resources, and patient preferences, and barriers to discharge 2. Coordinate with Social work, Care Navigation, and Utilization Review to arrange appropriate level of services according to patient's needs based on patient preference and payer coverage in collaboration with the physician and health care team 3. Address psychosocial, clinical, and financial barriers to discharge as identified in assessment in conjunction with the patient/family and health care team 4. Consult appropriate ancillary services (i.e.. PT/OT/ST, etc) as needed 5. Communicate with and update the patient/family, physician, and health care team regarding progress on the discharge plan 6. Identify discharge learning needs (meds, wound care, etc). 7. Arrange for needed discharge transportation as appropriate Outcome: Progressing Note: Evaluation of progress towards goal: Pending discharge to TBI Clinic vs SNF vs home, to be determined. Problem: Moderate - High Risk Fall Score Description: Gallegos Fall Score of =/> 25 or indicated by [facility] Assessment Goal: Patient should be free from fall Description: Interventions: 1. [place] to environment 2. Hourly rounds addressing the 4 P's (Pain, Positioning, Possessions, Potty) 3. Clear area of hazards (spills, clutter, electrical cords, unnecessary equipment) 4. Place equipment (bed & TV controls, call light, phone, urinal) within reach 5. Encourage patient to wear glasses and hearing aides as appropriate 6. Maintain bed in lowest position 7. Lock wheels on bed/wheelchair 8. Provide adequate lighting, including night light 9. Assess need for additional bedding, food/fluids, pain med's prior to sleep/routinely 10. Provide gripper slippers or personal non-skid footwear 11. Teach patient and patient passenger relations representative to maintain environment for safety and engage in all aspects of fall prevention program 12. Remind patient to call for help before getting out of bed 13. Initiate bed/chair/exit alarms supportive devices as appropriate, (chair wedge, no-skid floor mat, raised edge mattress, hip protectors) 14. Locate patient bed assignment for optimal visualization 15. Evaluate and identify Safe Patient Handling Equipment needs 16. Provide supervision when out of bed or chair 17. Utilize gait belt as needed to assist with ambulation 18. Place adaptive equipment (cane, walker) within reach 19. Request patient passenger relations representative bring adaptive equipment/mobility aids from home or obtain and provide as needed 20. Consult pharmacy regarding effects of med's affecting mobility, cognition, and alternatives 21. Obtain physician order for PT if risk factors associated with mobility are present 22. Obtain physician order for OT as appropriate 23. Utilize diversional activities 24. Educate patient and patient passenger relations representative how to maintain a safe environment during visitation times (notify nurse prior to leaving bedside) 25. Consider appropriateness of medical or non-medical reception specialist 26. Set up voiding schedule as appropriate (every 2 hours) Outcome: Progressing Note: Evaluation of progress towards goal: Patient will remain free from falls. -[facility] [employer] [facility] 07-17-2024 Progress note Formatting of t his note might be different from the original. DISCHARGE PLANNING NOTE Referral sent to. [facility] (P# [phone] ; F# [phone], ) -[facility] [employer] [facility] 07-17-2024 Progress note Formatting of t his note is different from the original. Physical Therapy Treatment Discharge Recommendations PT Recommendations: Inpatient Rehab Inpatient Rehab Criteria: All inpatient rehab criteria expected to be met 6 Clicks: Basic Mobility Turning from your back to your side while in a flat bed without using bed rails?: None Moving from lying on your back to sitting on side of flat bed without using bed rails?: None Moving to and from bed to a chair (including w/c)?: A little Standing up from a chair using your arms (e.g. w/c or bedside chair)?: A little To walk in hospital room?: A little Climbing 3-5 steps with a railing?: A little Scoring 6 Clicks: Basic Mobility Raw Score: 20 CMS G Code Modifier: CJ Patient Response to Treatment: Progressing toward goals Assessment Patient Assessment Patient Response to Treatment: Progressing toward goals Visit RN Communication: Yes Medical Record Reviewed: Yes PT Type of Visit: Treatment Precautions Activity: ok for therapy per MARCI Rothman Equipment: gait belt and chair alarm Telemetry/Huc: Yes Oxygen Used: room air Other: fall risk, recent TBI with behavioral changes, intermittent use of restraints Pain Assessment Pain Assessment: No/denies pain 07/17/24 1416 LE Seated LE seated exercises performed? Yes Ankle pumps x Long arc quads x Seated marching x Other verbal and visual cues for proper technique Repetitions 20x AROM BLE Bed Mobility Supine to Sit: Stand by assist Sit to Supine: Stand by assist Other: HOB elevated use of siderail. Transfers Sit to Stand: Standby assist Stand to Sit: Standby assist Toilet Transfers: Standby assist Other: safety awareness is a distant second to pt's desire to be independent. Gait Base of Support: Within Functional Limits Pattern: Decreased marty, R Decreased foot clearance, L Decreased foot clearance Gait Assistance: Contact guard assist, Mod assist Assistive Device: None Gait Distance: 70' x3 with rest break between distances. pt had major LOB to the right with no attempt to correct, corrected by Mod assist. Limiting Factors to Gait: Decreased safety, Cognition/difficulty following directions Other: cues for safety awareness. Balance Sitting Balance: Static: Good Sitting Balance: Dynamic: Good Standing Balance: Static: Fair (-) Standing Balance: Dynamic: Fair Other: various standing balance activities performed for a total of 8 minutes to improve balance and tolerance. Activity Tolerance Endurance: No limitations to activity tolerance Other: safety was chief limiting concern Plan Physical Therapy Care Plan Physical Therapy Care Plan (Active) Template: PT - Physical Therapy Problem: Activity Tolerance Dates: Start: 07/13/24 Disciplines: PT Goal: Tolerate > 30 minutes of activity WITH rest breaks Dates: Start: 07/13/24 Expected End: 07/27/24 Description: Goal Description: Patient to perform functional range / strength exercises to improve functional strength, balance and activity tolerance for improved independence and safety with mobility. Disciplines: PT Outcomes Date/Time User Outcome 07/17/24 1443 Vinod Vaca PTA Progressing Goal Note filed on 07/17/24 1443 by Vinod Vaca PTA Evaluation of progress towards goal: Problem: Gait Dates: Start: 07/13/24 Disciplines: PT Goal: Patient will perform gait Independently Dates: Start: 07/13/24 Expected End: 07/27/24 Description: Without AD >500ft for community mobility Disciplines: PT Outcomes Date/Time User Outcome 07/17/24 1443 Vinod Vaca PTA Progressing Goal Note filed on 07/17/24 1443 by Vinod Vaca, DIANETIC COUNSELOR Evaluation of progress towards goal: Problem: Stairs/Curb Dates: Start: 07/13/24 Disciplines: PT Goal: Patient will perform stairs/curb with Modified [place] Dates: Start: 07/13/24 Expected End: 07/27/24 Description: __flight___steps,__x1___hand rails Goal Description: Disciplines: PT Problem: Standing Balance Dates: Start: 07/13/24 Disciplines: PT Goal: Improve balance to good Dates: Start: 07/13/24 Expected End: 07/27/24 Description: Without UE support Disciplines: PT Outcomes Date/Time User Outcome 07/17/24 1443 Vinod Vaca PTA Progressing Goal Note filed on 07/17/24 1443 by Vinod Vaca PTA Evaluation of progress towards goal: Problem: Transfers Dates: Start: 07/13/24 Disciplines: PT Goal: Patient will perform transfers Independently Dates: Start: 07/13/24 Expected End: 07/27/24 Description: Goal Description: Disciplines: PT Outcomes Date/Time User Outcome 07/17/24 1443 Vinod Vaca PTA Progressing Goal Note filed on 07/17/24 1443 by Vinod Vaca PTA Evaluation of progress towards goal: Physical Therapy Care Plan (Resolved) There are no resolved problems. Principal Problem: Dementia with behavioral disturbance ([facility]) Active Problems: Altered mental status Status post colostomy, follow-up exam ([facility]) Cosigned by Briana Nuno PT at 07/18/2024 7:18 AM EST Associated attestation - Briana Nuno PT - 07/18/2024 7:18 AM EST I have reviewed and agree with this note and education documentation for this visit. [email or web address] 07-17-2024 Progress note Formatting of t his note is different from the original. Occupational Therapy Treatment Discharge Recommendations OT Recommendations : Inpatient Rehab 6 Clicks: Daily Activity Putting on and taking off regular lower body clothing?: A little Bathing (including washing, rinsing, drying)?: A little Toileting, which includes using toilet, bedpan or urinal?: A little Putting on and taking off regular upper body clothing?: A little Taking care of personal grooming such as brushing teeth?: A little Eating meals?: None (after set up) Scoring Daily Activity Raw Score: 19 CMS G Code Modifier: CK Therapy Plan Need for skilled Occupational Therapy to address deficits in ADL independence and functional mobility due to a status decline resulting from 07/17/24 1332 UE ROM UE ROM exercises performed? Yes Shoulder flexion/extension x Shoulder horizontal abduction/adduction x Elbow flexion/extension x Repetitions 20 reps w/bilat UE w/2lbs; OT Treatment/Interventions: ADL retraining, Cognitive reorientation, Balance, Bed mobility, Functional transfer training, Patient/family training, Home management, Functional activities, Equipment eval/education OT Frequency: 3-4days/week Assessment Patient Assessment Patient Response to Treatment: Progressing toward goals Visit RN Communication: Yes Medical Record Reviewed: Yes OT Type of Visit: Treatment Precautions Activity: ok for therapy per MARCI Rothman Equipment: gait belt and chair alarm Telemetry/Huc: Yes Oxygen Used: room air Other: fall risk, recent TBI with behavioral changes, intermittent use of restraints Pain Assessment Pain Assessment: No/denies pain ADL / IADL Hand Dominance: Right Where Assessed: At toilet, Standing at sink Grooming Assistance: Setup, Contact guard assist Grooming Deficit: Wash/dry hands (required cuing for use of soap and to dry hands after washing hands) Toilet/Commode Assistance: (S) Setup, Contact guard assist, Min assist, Verbal cues (required vcing for thoroughness w/hygiene after BM; pt required increased cuing for clothing management; pt attempted to walk away from toilet w/pants down at ankles) Hearing / Speech / Vision Hearing: Within Functional Limits Speech: Within Functional Limits Cognition Overall Cognitive Status: Exceptions to Within Functional Limits Arousal/Alertness: Delayed responses to stimuli Following Commands: Follows one step commands with repetition Safety Judgment: Decreased awareness of need for safety, Decreased awareness of need for assistance Awareness of Errors: Decreased awareness of errors Insight of Deficits: Decreased awareness of deficits (pt unaware of major LOB during ambulation) Problem Solving: Reduced Interfering Components: Working memory Bed Mobility Supine to Sit: Stand by assist (HOB elevated; SBA d/t decreased safety awareness otherwise would be mod I) Sit to Supine: Stand by assist (HOB elevated) Transfers Sit to Stand: Standby assist Stand to Sit: Standby assist Toilet Transfers: Standby assist Other: slightly unsteady w/transfers at times, pt unaware of unsteadiness Gait Gait Assistance: Contact guard assist, Mod assist (mod A w/1 major LOB during mobility) Assistive Device: None Gait Distance: 70ftx3 w/1 major LOB which required modA to correct Limiting Factors to Gait: Decreased safety, Cognition/difficulty following directions Balance Sitting Balance: Static: Good Sitting Balance: Dynamic: Good Standing Balance: Static: (initial STS demo'd fair- balance; good balance once oriented to standing) Standing Balance: Dynamic: Fair Other: engaged in a dynamic standing activity w/dynamic reaching for about 8mins, demo'd ablity to right self during activity however during ambulation pt unaware of LOB Activity Tolerance Endurance: No limitations to activity tolerance Plan Occupational Therapy Care Plan Occupational Therapy Care Plan (Active) Template: OT - Occupational Therapy Problem: Activity Tolerance Dates: Start: 07/13/24 Disciplines: OT Goal: No limitations to activity tolerance Dates: Start: 07/13/24 Expected End: 08/13/24 Description: Goal Description: Disciplines: OT Outcomes Date/Time User Outcome 07/17/24 1439 KWADWO Hogan/L Progressing Problem: Bathing LB Dates: Start: 07/13/24 Disciplines: OT Goal: Patient will perform bathing LB Independently Dates: Start: 07/13/24 Expected End: 08/13/24 Description: Goal Description: Disciplines: OT Problem: Bathing UB Dates: Start: 07/13/24 Disciplines: OT Goal: Patient will perform bathing UB Independently Dates: Start: 07/13/24 Expected End: 08/13/24 Description: Goal Description: Disciplines: OT Problem: Cognition Dates: Start: 07/13/24 Disciplines: OT Goal: Improve cognition Dates: Start: 07/13/24 Expected End: 08/13/24 Description: Patient will demonstrate good safety, judgement and ability to independently execute steps necessary for ADL tasks. Disciplines: OT Outcomes Date/Time User Outcome 07/17/24 1439 KWADWO Hogan/Jerome Progressing Problem: Dressing LB Dates: Start: 07/13/24 Disciplines: OT Goal: Patient will perform dressing LB Independently Dates: Start: 07/13/24 Expected End: 08/13/24 Description: Goal Description: Disciplines: OT Problem: Dressing UB Dates: Start: 07/13/24 Disciplines: OT Goal: Patient will perform dressing UB Independently Dates: Start: 07/13/24 Expected End: 08/13/24 Description: Goal Description: Disciplines: OT Problem: Functional Mobility Dates: Start: 07/13/24 Disciplines: OT Goal: Patient will perform functional mobility Independently Dates: Start: 07/13/24 Expected End: 08/13/24 Description: Goal Description: Disciplines: OT Outcomes Date/Time User Outcome 07/17/24 1439 Yoanna Guille-Mahoney, KWADWO/L Progressing Problem: Grooming Dates: Start: 07/13/24 Disciplines: OT Goal: Patient will perform grooming Independently Dates: Start: 07/13/24 Expected End: 08/13/24 Description: Goal Description: Disciplines: OT Outcomes Date/Time User Outcome 07/17/24 1439 Yoanna Han-Mahoney, KWADWO/L Progressing Problem: Standing Balance Dates: Start: 07/13/24 Disciplines: OT Goal: Improve balance to normal Dates: Start: 07/13/24 Expected End: 08/13/24 Description: Normal dynamic balance. Disciplines: OT Outcomes Date/Time User Outcome 07/17/24 1439 Yoanna Han-Mahoney, [place]LLF[place] HARVESTER/L Progressing Problem: Toilet Transfers Dates: Start: 07/13/24 Disciplines: OT Goal: Patient will perform toilet transfers Independently Dates: Start: 07/13/24 Expected End: 08/13/24 Description: Goal Description: Disciplines: OT Outcomes Date/Time User Outcome 07/17/24 1439 Yoanna Han-Mahoney, [place]VESTER/L Progressing Problem: Toileting Dates: Start: 07/13/24 Disciplines: OT Goal: Patient will perform toileting Independently Dates: Start: 07/13/24 Expected End: 08/13/24 Description: Goal Description: Disciplines: OT Outcomes Date/Time User Outcome 07/17/24 1439 Yoanna Han-Mahoney, [place]LL[place] HARVESTER/L Progressing Problem: Transfers Dates: Start: 07/13/24 Disciplines: OT Goal: Patient will perform transfers Independently Dates: Start: 07/13/24 Expected End: 08/13/24 Description: Goal Description: Disciplines: OT Outcomes Date/Time User Outcome 07/17/24 1439 EN Hogan Progressing Occupational Therapy Care Plan (Resolved) There are no resolved problems. Principal Problem: Dementia with behavioral disturbance ([facility]) Active Problems: Altered mental status Status post colostomy, follow-up exam ([facility]) Cosigned by MAYNOR Navarro/Jerome at 07/17/2024 3:03 PM EST Associated attestation - Lucie Olivarez OTR/Jerome - 07/17/2024 3:03 PM EST I have reviewed and agree with this note and education documentation for this visit. [email or web address] 07-17-2024 Telephone encounter Note Pt fell and is in [facility] and is requesting help with getting pt transferred to a [facility] facility Please call pts [phone] [facility] 07-17-2024 Plan of care note Problem: Safety Goal: Patient will be injury free during hospitalization Description: INTERVENTIONS: 1. Assess patient's risk for falls and implement fall prevention plan of care per policy 2. Provide and maintain a safe environment 3. Proper use of double Identifiers 4. Medication administration using the 5 rights 5. Hand hygiene 6. Specimens are labeled at the bedside 7. Instruct patient/ patient passenger relations representative about use of safety devices 8. Include patient/ patient passenger relations representative in decisions related to safety Outcome: Progressing Note: Evaluation of progress towards goal: Patient is injury free at this time. Problem: Knowledge Deficit Goal: Patient/patient passenger relations representative demonstrates understanding of disease process, treatment plan, medications, and discharge instructions Description: INTERVENTIONS 1. Complete learning assessment and assess knowledge base 2. Provide teaching at level of understanding 3. Provide teaching via preferred learning method(s) Outcome: Progressing Note: Evaluation of progress towards goal: Patient has hx of dementia. Reoriented as needed. Problem: Discharge Planning Goal: Discharge to post-acute care, other facility, or home with appropriate resources Description: Patient's goal is: INTERVENTIONS 1. Conduct assessment to determine patient/family and health care team treatment goals, and need for post-acute services based on payer coverage, community resources, and patient preferences, and barriers to discharge 2. Coordinate with Social work, Care Navigation, and Utilization Review to arrange appropriate level of services according to patient's needs based on patient preference and payer coverage in collaboration with the physician and health care team 3. Address psychosocial, clinical, and financial barriers to discharge as identified in assessment in conjunction with the patient/family and health care team 4. Consult appropriate ancillary services (i.e.. PT/OT/ST, etc) as needed 5. Communicate with and update the patient/family, physician, and health care team regarding progress on the discharge plan 6. Identify discharge learning needs (meds, wound care, etc). 7. Arrange for needed discharge transportation as appropriate Outcome: Progressing Note: Evaluation of progress towards goal: Patient working with social work to determine discharge plan. Problem: Neurological Deficit Goal: Neurological status is stable or improving Description: Patient's goal is: INTERVENTIONS 1. Complete Neurological assessment as indicated/ordered 2. Initiate measures to prevent increased intracranial pressure 3. Monitor and assess patient's level of consciousness, motor function, sensory function, and level of assistance needed for ADLs 4. Monitor and report changes from baseline 5. Maintain blood pressure and fluid volume within ordered parameters to optimize cerebral perfusion and minimize risk of hemorrhage 6. Monitor labs and diagnostic tests 7. Administer anti-seizure medications as ordered 8. Maintain airway, patient safety and administer oxygen as ordered 9. Monitor patient for seizure activity, document and report duration and description of seizure to LIP 10. If seizure occurs, turn patient to side and suction secretions as needed 11. Reorient patient post seizure 12. Seizure pads on all 4 side rails 13. Instruct patient/family to notify RN of any seizure activity 14. Instruct patient/family to call for assistance with activity based on assessment 15. Utilize bleeding precautions if thrombolytic given Outcome: Progressing Note: Evaluation of progress towards goal: Patient's neurological status is stable. Problem: Moderate - High Risk Fall Score Description: Gallegos Fall Score of =/> [address] [facility] Assessment Goal: Patient should be free from fall Description: Interventions: 1. [place] to environment 2. Hourly rounds addressing the 4 P's (Pain, Positioning, Possessions, Potty) 3. Clear area of hazards (spills, clutter, electrical cords, unnecessary equipment) 4. Place equipment (bed & TV controls, call light, phone, urinal) within reach 5. Encourage patient to wear glasses and hearing aides as appropriate 6. Maintain bed in lowest position 7. Lock wheels on bed/wheelchair 8. Provide adequate lighting, including night light 9. Assess need for additional bedding, food/fluids, pain med's prior to sleep/routinely 10. Provide gripper slippers or personal non-skid footwear 11. Teach patient and patient passenger relations representative to maintain environment for safety and engage in all aspects of fall prevention program 12. Remind patient to call for help before getting out of bed 13. Initiate bed/chair/exit alarms supportive devices as appropriate, (chair wedge, no-skid floor mat, raised edge mattress, hip protectors) 14. Locate patient bed assignment for optimal visualization 15. Evaluate and identify Safe Patient Handling Equipment needs 16. Provide supervision when out of bed or chair 17. Utilize gait belt as needed to assist with ambulation 18. Place adaptive equipment (cane, walker) within reach 19. Request patient passenger relations representative bring adaptive equipment/mobility aids from home or obtain and provide as needed 20. Consult pharmacy regarding effects of med's affecting mobility, cognition, and alternatives 21. Obtain physician order for PT if risk factors associated with mobility are present 22. Obtain physician order for OT as appropriate 23. Utilize diversional activities 24. Educate patient and patient passenger relations representative how to maintain a safe environment during visitation times (notify nurse prior to leaving bedside) 25. Consider appropriateness of medical or non-medical reception specialist 26. Set up voiding schedule as appropriate (every 2 hours) Outcome: Progressing Note: Evaluation of progress towards goal: Patient is free from falls at this time. [email or web address] 07-17-2024 Progress note Formatting of t his note might be different from the original. DISCHARGE PLANNING NOTE fax referral to [facility] to [phone] shannan Shah [email or web address] 07-17-2024 Progress note Formatting of t his note is different from the original. Images from the original note were not included. DISCHARGE PLANNING NOTE Discussed patient today during rounds. Plan- IPR/TBI center. Barriers- acceptance, auth. This engineering writer called both reviewing facilities and left for admissions to see if they can accept. Asked them to call this engineering writer back. Floor nurse and leadership team aware. Services Requested: Services Requested Patient expects to be discharged to:: home vs snf Patient Goals: Goals: Goals (pt-stated) Evaluation of progress towards goal: TBD-pending PT/OT eval - NANCY PARRISH 07/17/24 9:42 AM At this time we do not have an accepting TBI/IPR facility. This engineering writer and steel floor pan placing supervisor attempted to speak with patient's but she is not in the room. Also tried to call her but it went right to and her box is full. - NANCY PARRISH 07/17/24 1:43 PM [facility] called this engineering writer since they don't respond in careport and they can not accept patient. This engineering writer and steel floor pan placing supervisor spoke with patient's and patient's sister that was present in room re: d/c planning. Explained to them that patient is ready for d/c and that we do not have an accepting TBI/IPR. Discussed the option of taking patient home with outpatient speech therapy and they declined. Suggested SNF with secured memory unit and provided careport list. Also discussed that there is a chance insurance won't approve SNF and that it could be private pay so they are aware. They declined stating that they only want him a TBI/IPR for rehab. Provided 2nd IMM to and explained so she is aware of appeal rights. Updated leadership and floor nurse. - NANCY PARRISH 07/17/24 2:45 PM [email or web address] 07-17-2024 Plan of care note Problem: Safety Goal: Patient will be injury free during hospitalization Description: INTERVENTIONS: 1. Assess patient's risk for falls and implement fall prevention plan of care per policy 2. Provide and maintain a safe environment 3. Proper use of double Identifiers 4. Medication administration using the 5 rights 5. Hand hygiene 6. Specimens are labeled at the bedside 7. Instruct patient/ patient passenger relations representative about use of safety devices 8. Include patient/ patient passenger relations representative in decisions related to safety Outcome: Progressing Note: Evaluation of progress towards goal: Patient remains injury and fall free. Safety precautions in place: call light within reach, bed in lowest position, personal belongings within reach, oriented to environment, and non-slip footwear on. Problem: Knowledge Deficit Goal: Patient/patient passenger relations representative demonstrates understanding of disease process, treatment plan, medications, and discharge instructions Description: INTERVENTIONS 1. Complete learning assessment and assess knowledge base 2. Provide teaching at level of understanding 3. Provide teaching via preferred learning method(s) Outcome: Progressing Note: Evaluation of progress towards goal: Significant other at bedside and any questions have been answered. Problem: Discharge Planning Goal: Discharge to post-acute care, other facility, or home with appropriate resources Description: Patient's goal is: INTERVENTIONS 1. Conduct assessment to determine patient/family and health care team treatment goals, and need for post-acute services based on payer coverage, community resources, and patient preferences, and barriers to discharge 2. Coordinate with Social work, Care Navigation, and Utilization Review to arrange appropriate level of services according to patient's needs based on patient preference and payer coverage in collaboration with the physician and health care team 3. Address psychosocial, clinical, and financial barriers to discharge as identified in assessment in conjunction with the patient/family and health care team 4. Consult appropriate ancillary services (i.e.. PT/OT/ST, etc) as needed 5. Communicate with and update the patient/family, physician, and health care team regarding progress on the discharge plan 6. Identify discharge learning needs (meds, wound care, etc). 7. Arrange for needed discharge transportation as appropriate Outcome: Progressing Note: Evaluation of progress towards goal: Patient to discharge to TBI IPR, awaiting an accepting facility. Problem: Neurological Deficit Goal: Neurological status is stable or improving Description: Patient's goal is: INTERVENTIONS 1. Complete Neurological assessment as indicated/ordered 2. Initiate measures to prevent increased intracranial pressure 3. Monitor and assess patient's level of consciousness, motor function, sensory function, and level of assistance needed for ADLs 4. Monitor and report changes from baseline 5. Maintain blood pressure and fluid volume within ordered parameters to optimize cerebral perfusion and minimize risk of hemorrhage 6. Monitor labs and diagnostic tests 7. Administer anti-seizure medications as ordered 8. Maintain airway, patient safety and administer oxygen as ordered 9. Monitor patient for seizure activity, document and report duration and description of seizure to LIP 10. If seizure occurs, turn patient to side and suction secretions as needed 11. Reorient patient post seizure 12. Seizure pads on all 4 side rails 13. Instruct patient/family to notify RN of any seizure activity 14. Instruct patient/family to call for assistance with activity based on assessment 15. Utilize bleeding precautions if thrombolytic given Outcome: Progressing Note: Evaluation of progress towards goal: Assess and report any changes in neurological status. Neurological status and vital signs q4h and with any changes in condition. Problem: Moderate - High Risk Fall Score Description: Gallegos Fall Score of =/> [address] [facility] Assessment Goal: Patient should be free from fall Description: Interventions: 1. [place] to environment 2. Hourly rounds addressing the 4 P's (Pain, Positioning, Possessions, Potty) 3. Clear area of hazards (spills, clutter, electrical cords, unnecessary equipment) 4. Place equipment (bed & TV controls, call light, phone, urinal) within reach 5. Encourage patient to wear glasses and hearing aides as appropriate 6. Maintain bed in lowest position 7. Lock wheels on bed/wheelchair 8. Provide adequate lighting, including night light 9. Assess need for additional bedding, food/fluids, pain med's prior to sleep/routinely 10. Provide gripper slippers or personal non-skid footwear 11. Teach patient and patient passenger relations representative to maintain environment for safety and engage in all aspects of fall prevention program 12. Remind patient to call for help before getting out of bed 13. Initiate bed/chair/exit alarms supportive devices as appropriate, (chair wedge, no-skid floor mat, raised edge mattress, hip protectors) 14. Locate patient bed assignment for optimal visualization 15. Evaluate and identify Safe Patient Handling Equipment needs 16. Provide supervision when out of bed or chair 17. Utilize gait belt as needed to assist with ambulation 18. Place adaptive equipment (cane, walker) within reach 19. Request patient passenger relations representative bring adaptive equipment/mobility aids from home or obtain and provide as needed 20. Consult pharmacy regarding effects of med's affecting mobility, cognition, and alternatives 21. Obtain physician order for PT if risk factors associated with mobility are present 22. Obtain physician order for OT as appropriate 23. Utilize diversional activities 24. Educate patient and patient passenger relations representative how to maintain a safe environment during visitation times (notify nurse prior to leaving bedside) 25. Consider appropriateness of medical or non-medical reception specialist 26. Set up voiding schedule as appropriate (every 2 hours) Outcome: Progressing Note: Evaluation of progress towards goal: Patient remains injury and fall free. Safety precautions in place: call light within reach, bed in lowest position, personal belongings within reach, oriented to environment, and non-slip footwear on. -[facility] [email or web address] 07-16-2024 Progress note Formatting of t his note is different from the original. Speech Therapy Treatment Note Assessment Problem: cognitive linguistic and language Progress: same Pain Assessment Pain Assessment: No/denies pain Recomendation Diet: regular diet with thin liquids Discharge: inpatient rehab Precautions Fall precautions Plan Plan of Care: continue with current plan of care Subjective Setting: chairside Arrival Status: awake and alert Mental Status: confused/disoriented and pleasant Therapy Tolerance: good Change in Medical Status: no Received Recent Meds: no Objective Therapy Activities: attention Cueing/Assistance Required: maximum Cueing Type: verbal Accuracy: maintained attention for about 1 minute at a time Therapy Activities: problem solving Cueing/Assistance Required: moderate Cueing Type: verbal Accuracy: 50% accuracy Therapy Activities: thought organization Cueing/Assistance Required: maximum Cueing Type: verbal Accuracy: 50% accuracy Therapy Activities: topic maintenance Cueing/Assistance Required: maximum Cueing Type: verbal Accuracy: pt needed frequent verbal cues for topic maintenance Plan Speech Therapy Care Plan Speech Therapy Care Plan (Active) Template: - Rehab Speech Problem: Auditory Comprehension Dates: Start: 07/12/24 Disciplines: FRUIT THINNER Goal: LTG: Patient will comprehend communication related to basic medical and social needs and utilize compensatory strategies to maintain safety in a functional living environment Dates: Start: 07/12/24 Expected End: 08/12/24 Disciplines: FRUIT THINNER Goal: STG: Patient will answer complex yes/no questions with 90% accuracy with minimal cueing Dates: Start: 07/12/24 Expected End: 08/12/24 Disciplines: FRUIT THINNER Outcomes Date/Time User Outcome 07/16/24 152Lauro Conchita Dev[facility] Goal: STG: Patient will complete 1-3 step commands with 90% accuracy with minimal cueing Dates: Start: 07/12/24 Expected End: 08/12/24 Disciplines: FRUIT THINNER Outcomes Date/Time User Outcome 07/16/24 Jenn Conchita Dev[facility] Progressing Goal: STG: Patient will complete simple, phrase level auditory comprehension tasks with 90% accuracy with minimal cueing Dates: Start: 07/12/24 Expected End: 08/12/24 Disciplines: FRUIT THINNER Problem: Cognitive Linguistic Dates: Start: 07/12/24 Disciplines: FRUIT THINNER Goal: LTG: Patient will display functional cognitive-linguistic skills to demonstrate appropriate communication and safety within daily activities in a functional living environment Dates: Start: 07/12/24 Expected End: 08/12/24 Disciplines: FRUIT THINNER Goal: STG: Patient will demonstrate sustained attention by maintaining focus during a task for 10 minutes with minimal assistance Dates: Start: 07/12/24 Expected End: 08/12/24 Disciplines: FRUIT THINNER Outcomes Date/Time User Outcome 07/16/24 152Lauro Conchita Devi [facility] Progressing Goal: STG: Patient will be appropriately oriented to person, place, time and situation with 90% accuracy with minimal cueing Dates: Start: 07/12/24 Expected End: 08/12/24 Disciplines: FRUIT THINNER Goal: STG: Patient will recall information discussed during therapy session via retelling/answering questions with 90% accuracy with minimal cueing Dates: Start: 07/12/24 Expected End: 08/12/24 Disciplines: FRUIT THINNER Problem: High Level Language Dates: Start: 07/12/24 Disciplines: FRUIT THINNER Goal: LTG: Patient will demonstrate use of self-awareness, goal setting, planning, initiation, self-monitoring and problem solving during daily activities to improve safety and awareness in a functional living environment Dates: Start: 07/12/24 Expected End: 08/12/24 Disciplines: FRUIT THINNER Goal: STG: Patient will sequence 4-6 steps to a task (verbal, written, pictures) with 90% accuracy with minimal cueing Dates: Start: 07/12/24 Expected End: 08/12/24 Disciplines: FRUIT THINNER Goal: STG: Patient will provide 3 appropriate solutions to problems of daily living with 90% accuracy with minimal cueing Dates: Start: 07/12/24 Expected End: 08/12/24 Disciplines: FRUIT THINNER Goal: STG: Patient will demonstrate functional problem solving and safety awareness with 90% accuracy in daily living tasks in order to increase safe interactions with environment and decrease assistance from caregivers Dates: Start: 07/12/24 Expected End: 08/12/24 Disciplines: FRUIT THINNER Problem: Verbal Expression Dates: Start: 07/12/24 Disciplines: FRUIT THINNER Goal: LTG: Patient will utilize compensatory strategies to communicate wants and needs effectively to different conversational partners, maintain safety and participate socially in a functional living environment Dates: Start: 07/12/24 Expected End: 08/12/24 Disciplines: FRUIT THINNER Goal: STG: Patient will respond to simple/complex open ended questions during activities of daily living with 90% accuracy with minimal cueing Dates: Start: 07/12/24 Expected End: 08/12/24 Disciplines: FRUIT THINNER Goal: STG: Patient will maintain topic of conversation to decrease tangential speech with 90% accuracy with minimal cueing Dates: Start: 07/12/24 Expected End: 08/12/24 Disciplines: FRUIT THINNER Outcomes Date/Time User Outcome 07/16/24 1520 Conchita Devi [facility]-FRUIT THINNER Progressing Speech Therapy Care Plan (Resolved) There are no resolved problems. Principal Problem: D[facility] with behavioral disturbance [facility] Active Problems: Altered mental status Status post colostomy, follow-up exam ([facility] -[facility] [email or web address] 07-16-2024 Progress note Formatting of t his note might be different from the original. DISCHARGE PLANNING NOTE Resent referral in [facility] to [facility] P#[phone]; F#[phone] sent via secure fax to [phone] [employer] 07-16-2024 Plan of care note Problem: Safety Goal: Patient will be injury free during hospitalization Description: INTERVENTIONS: 1. Assess patient's risk for falls and implement fall prevention plan of care per policy 2. Provide and maintain a safe environment 3. Proper use of double Identifiers 4. Medication administration using the 5 rights 5. Hand hygiene 6. Specimens are labeled at the bedside 7. Instruct patient/ patient passenger relations representative about use of safety devices 8. Include patient/ patient passenger relations representative in decisions related to safety Outcome: Progressing Note: Evaluation of progress towards goal: pain will be adequally controlled to allow for rest and adl's Problem: Knowledge Deficit Goal: Patient/patient passenger relations representative demonstrates understanding of disease process, treatment plan, medications, and discharge instructions Description: INTERVENTIONS 1. Complete learning assessment and assess knowledge base 2. Provide teaching at level of understanding 3. Provide teaching via preferred learning method(s) Outcome: Progressing Note: Evaluation of progress towards goal: pt. Will have knowledge of disease process and treatment by discharge Problem: Discharge Planning Goal: Discharge to post-acute care, other facility, or home with appropriate resources Description: Patient's goal is: INTERVENTIONS 1. Conduct assessment to determine patient/family and health care team treatment goals, and need for post-acute services based on payer coverage, community resources, and patient preferences, and barriers to discharge 2. Coordinate with Social work, Care Navigation, and Utilization Review to arrange appropriate level of services according to patient's needs based on patient preference and payer coverage in collaboration with the physician and health care team 3. Address psychosocial, clinical, and financial barriers to discharge as identified in assessment in conjunction with the patient/family and health care team 4. Consult appropriate ancillary services (i.e.. PT/OT/ST, etc) as needed 5. Communicate with and update the patient/family, physician, and health care team regarding progress on the discharge plan 6. Identify discharge learning needs (meds, wound care, etc). 7. Arrange for needed discharge transportation as appropriate Outcome: Progressing Note: Evaluation of progress towards goal: TBI facility pending acceptance Problem: Neurological Deficit Goal: Neurological status is stable or improving Description: Patient's goal is: INTERVENTIONS 1. Complete Neurological assessment as indicated/ordered 2. Initiate measures to prevent increased intracranial pressure 3. Monitor and assess patient's level of consciousness, motor function, sensory function, and level of assistance needed for ADLs 4. Monitor and report changes from baseline 5. Maintain blood pressure and fluid volume within ordered parameters to optimize cerebral perfusion and minimize risk of hemorrhage 6. Monitor labs and diagnostic tests 7. Administer anti-seizure medications as ordered 8. Maintain airway, patient safety and administer oxygen as ordered 9. Monitor patient for seizure activity, document and report duration and description of seizure to LIP 10. If seizure occurs, turn patient to side and suction secretions as needed 11. Reorient patient post seizure 12. Seizure pads on all 4 side rails 13. Instruct patient/family to notify RN of any seizure activity 14. Instruct patient/family to call for assistance with activity based on assessment 15. Utilize bleeding precautions if thrombolytic given Outcome: Progressing Note: Evaluation of progress towards goal: remains stable goal of baseline Problem: Moderate - High Risk Fall Score Description: [place] Fall Score of =/> [address] [facility] Assessment Goal: Patient should be free from fall Description: Interventions: 1. [place] to environment 2. Hourly rounds addressing the 4 P's (Pain, Positioning, Possessions, Potty) 3. Clear area of hazards (spills, clutter, electrical cords, unnecessary equipment) 4. Place equipment (bed & TV controls, call light, phone, urinal) within reach 5. Encourage patient to wear glasses and hearing aides as appropriate 6. Maintain bed in lowest position 7. Lock wheels on bed/wheelchair 8. Provide adequate lighting, including night light 9. Assess need for additional bedding, food/fluids, pain med's prior to sleep/routinely 10. Provide gripper slippers or personal non-skid footwear 11. Teach patient and patient passenger relations representative to maintain environment for safety and engage in all aspects of fall prevention program 12. Remind patient to call for help before getting out of bed 13. Initiate bed/chair/exit alarms supportive devices as appropriate, (chair wedge, no-skid floor mat, raised edge mattress, hip protectors) 14. Locate patient bed assignment for optimal visualization 15. Evaluate and identify Safe Patient Handling Equipment needs 16. Provide supervision when out of bed or chair 17. Utilize gait belt as needed to assist with ambulation 18. Place adaptive equipment (cane, walker) within reach 19. Request patient passenger relations representative bring adaptive equipment/mobility aids from home or obtain and provide as needed 20. Consult pharmacy regarding effects of med's affecting mobility, cognition, and alternatives 21. Obtain physician order for PT if risk factors associated with mobility are present 22. Obtain physician order for OT as appropriate 23. Utilize diversional activities 24. Educate patient and patient passenger relations representative how to maintain a safe environment during visitation times (notify nurse prior to leaving bedside) 25. Consider appropriateness of medical or non-medical reception specialist 26. Set up voiding schedule as appropriate (every 2 hours) Outcome: Progressing Note: Evaluation of progress towards goal: fall bundle [email or web address] 07-16-2024 Progress note Formatting of t his note might be different from the original. DISCHARGE PLANNING NOTE Clinical updates sent to Referrals sent to [facility] (P# [phone] ; F# [phone]) and to [facility] and to [facility] -[facility] [email or web address] 07-16-2024 Progress note Formatting of t his note might be different from the original. DISCHARGE PLANNING NOTE Referral sent to. [facility] [place] Via secure fax to [phone]. This is theor fax per phone call to facility. P#[phone]. Provider not in [employer]. -[facility] [employer] 07-16-2024 Progress note Formatting of t his note might be different from the original. DISCHARGE PLANNING NOTE Discharge plan- TBD waiting to hear from [facility] who can accept out of the reviewing facilities. [facility] this engineering writer and will call his to discuss. If they are able to accept she would owe private pay for room and board and money is due up front. Updated leadership team and floor nurse. - NANCY PARRISH 07/16/24 8:50 AM Discussed patient today during rounds. Called [facility] and left a VM for admissions to see if they can accept. Awaiting responses from the other facilities to respond. Barriers- acceptance, auth. - NANCY PARRISH 07/16/24 10:58 AM Called admissions at [facility] and [facility] and left VM asking them if they can accept and to call this engineering writer back. Left callback #. - NANCY PARRISH 07/16/24 11:05 AM Still awaiting responses from all reviewing [facility] this time. Leadership aware. Called [facility] and spoke with admissions and they will review. Also called [facility] and left another VM. Both in [place] are still reviewing at this time. - NANCY PARRISH 07/16/24 1:39 PM Spoke with patient and to update them that at this time we are awaiting responses from 3 facilities. Leadership aware. - NANCY PARRISH 07/16/24 3:45 PM [email or web address] 07-16-2024 Plan of care note Problem: Safety Goal: Patient will be injury free during hospitalization Description: INTERVENTIONS: 1. Assess patient's risk for falls and implement fall prevention plan of care per policy 2. Provide and maintain a safe environment 3. Proper use of double Identifiers 4. Medication administration using the 5 rights 5. Hand hygiene 6. Specimens are labeled at the bedside 7. Instruct patient/ patient passenger relations representative about use of safety devices 8. Include patient/ patient passenger relations representative in decisions related to safety Outcome: Progressing Note: Evaluation of progress towards goal: Patient remains injury and fall free. Safety precautions in place: call light within reach, bed in lowest position, personal belongings within reach, oriented to environment, and non-slip footwear on. Problem: Knowledge Deficit Goal: Patient/patient passenger relations representative demonstrates understanding of disease process, treatment plan, medications, and discharge instructions Description: INTERVENTIONS 1. Complete learning assessment and assess knowledge base 2. Provide teaching at level of understanding 3. Provide teaching via preferred learning method(s) Outcome: Progressing Note: Evaluation of progress towards goal: Patient and family educated on treatment plan and discharge updated. Patient need reinforced education. Problem: Discharge Planning Goal: Discharge to post-acute care, other facility, or home with appropriate resources Description: Patient's goal is: INTERVENTIONS 1. Conduct assessment to determine patient/family and health care team treatment goals, and need for post-acute services based on payer coverage, community resources, and patient preferences, and barriers to discharge 2. Coordinate with Social work, Care Navigation, and Utilization Review to arrange appropriate level of services according to patient's needs based on patient preference and payer coverage in collaboration with the physician and health care team 3. Address psychosocial, clinical, and financial barriers to discharge as identified in assessment in conjunction with the patient/family and health care team 4. Consult appropriate ancillary services (i.e.. PT/OT/ST, etc) as needed 5. Communicate with and update the patient/family, physician, and health care team regarding progress on the discharge plan 6. Identify discharge learning needs (meds, wound care, etc). 7. Arrange for needed discharge transportation as appropriate Outcome: Progressing Note: Evaluation of progress towards goal: Patient and family educated on treatment plan and discharge updated. Patient need reinforced education. Problem: Neurological Deficit Goal: Neurological status is stable or improving Description: Patient's goal is: INTERVENTIONS 1. Complete Neurological assessment as indicated/ordered 2. Initiate measures to prevent increased intracranial pressure 3. Monitor and assess patient's level of consciousness, motor function, sensory function, and level of assistance needed for ADLs 4. Monitor and report changes from baseline 5. Maintain blood pressure and fluid volume within ordered parameters to optimize cerebral perfusion and minimize risk of hemorrhage 6. Monitor labs and diagnostic tests 7. Administer anti-seizure medications as ordered 8. Maintain airway, patient safety and administer oxygen as ordered 9. Monitor patient for seizure activity, document and report duration and description of seizure to LIP 10. If seizure occurs, turn patient to side and suction secretions as needed 11. Reorient patient post seizure 12. Seizure pads on all 4 side rails 13. Instruct patient/family to notify RN of any seizure activity 14. Instruct patient/family to call for assistance with activity based on assessment 15. Utilize bleeding precautions if thrombolytic given Outcome: Progressing Note: Evaluation of progress towards goal: Assess and report any changes in neurological status. Neurological status and vital signs q4h and with any changes in condition. Problem: Anxiety Goal: Anxiety is at manageable level Description: Patient's goal is: INTERVENTIONS 1. Assess and monitor patient's anxiety level 2. Monitor for signs and symptoms of anxiety both physical and emotional (heart palpitations, chest pain, shortness of breath, headaches, nausea, feeling jumpy, restlessness, irritable, apprehensive) 3. Reorient/orient patient to unit/surroundings 4. Explain treatment plan 5. Explain tests/procedures prior to initiation 6. Encourage participation in care 7. Encourage verbalization of concerns/fears 8. Assess coping mechanisms 9. Assist in developing anxiety-reducing skills 10. Administer complimentary therapies 11. Manage patient's environment 12. Limit or eliminate stimulants such as caffeine and nicotine 13. Collaborate with ancillary departments 14. Include patient/patient passenger relations representative in decisions related to anxiety Outcome: Progressing Note: Evaluation of progress towards goal: Patient's anxiety appears to be at manageable level. Problem: Moderate - High Risk Fall Score Description: Gallegos Fall Score of =/> 25 or indicated by [facility] Assessment Goal: Patient should be free from fall Description: Interventions: 1. [place] to environment 2. Hourly rounds addressing the 4 P's (Pain, Positioning, Possessions, Potty) 3. Clear area of hazards (spills, clutter, electrical cords, unnecessary equipment) 4. Place equipment (bed & TV controls, call light, phone, urinal) within reach 5. Encourage patient to wear glasses and hearing aides as appropriate 6. Maintain bed in lowest position 7. Lock wheels on bed/wheelchair 8. Provide adequate lighting, including night light 9. Assess need for additional bedding, food/fluids, pain med's prior to sleep/routinely 10. Provide gripper slippers or personal non-skid footwear 11. Teach patient and patient passenger relations representative to maintain environment for safety and engage in all aspects of fall prevention program 12. Remind patient to call for help before getting out of bed 13. Initiate bed/chair/exit alarms supportive devices as appropriate, (chair wedge, no-skid floor mat, raised edge mattress, hip protectors) 14. Locate patient bed assignment for optimal visualization 15. Evaluate and identify Safe Patient Handling Equipment needs 16. Provide supervision when out of bed or chair 17. Utilize gait belt as needed to assist with ambulation 18. Place adaptive equipment (cane, walker) within reach 19. Request patient passenger relations representative bring adaptive equipment/mobility aids from home or obtain and provide as needed 20. Consult pharmacy regarding effects of med's affecting mobility, cognition, and alternatives 21. Obtain physician order for PT if risk factors associated with mobility are present 22. Obtain physician order for OT as appropriate 23. Utilize diversional activities 24. Educate patient and patient passenger relations representative how to maintain a safe environment during visitation times (notify nurse prior to leaving bedside) 25. Consider appropriateness of medical or non-medical reception specialist 26. Set up voiding schedule as appropriate (every 2 hours) Outcome: Progressing Note: Evaluation of progress towards goal: Patient remains injury and fall free. Safety precautions in place: call light within reach, bed in lowest position, personal belongings within reach, oriented to environment, and non-slip footwear on. [facility] 07-15-2024 Plan of care note Problem: Safety Goal: Patient will be injury free during hospitalization Description: INTERVENTIONS: 1. Assess patient's risk for falls and implement fall prevention plan of care per policy 2. Provide and maintain a safe environment 3. Proper use of double Identifiers 4. Medication administration using the 5 rights 5. Hand hygiene 6. Specimens are labeled at the bedside 7. Instruct patient/ patient passenger relations representative about use of safety devices 8. Include patient/ patient passenger relations representative in decisions related to safety Outcome: Progressing Note: Evaluation of progress towards goal: Pt is free from injury Problem: Neurological Deficit Goal: Neurological status is stable or improving Description: Patient's goal is: INTERVENTIONS 1. Complete Neurological assessment as indicated/ordered 2. Initiate measures to prevent increased intracranial pressure 3. Monitor and assess patient's level of consciousness, motor function, sensory function, and level of assistance needed for ADLs 4. Monitor and report changes from baseline 5. Maintain blood pressure and fluid volume within ordered parameters to optimize cerebral perfusion and minimize risk of hemorrhage 6. Monitor labs and diagnostic tests 7. Administer anti-seizure medications as ordered 8. Maintain airway, patient safety and administer oxygen as ordered 9. Monitor patient for seizure activity, document and report duration and description of seizure to LIP 10. If seizure occurs, turn patient to side and suction secretions as needed 11. Reorient patient post seizure 12. Seizure pads on all 4 side rails 13. Instruct patient/family to notify RN of any seizure activity 14. Instruct patient/family to call for assistance with activity based on assessment 15. Utilize bleeding precautions if thrombolytic given Outcome: Progressing Note: Evaluation of progress towards goal: Pt is neurologically stable Problem: Moderate - High Risk Fall Score Description: Gallegos Fall Score of =/> 25 or indicated by [facility] Assessment Goal: Patient should be free from fall Description: Interventions: 1. [place] to environment 2. Hourly rounds addressing the 4 P's (Pain, Positioning, Possessions, Potty) 3. Clear area of hazards (spills, clutter, electrical cords, unnecessary equipment) 4. Place equipment (bed & TV controls, call light, phone, urinal) within reach 5. Encourage patient to wear glasses and hearing aides as appropriate 6. Maintain bed in lowest position 7. Lock wheels on bed/wheelchair 8. Provide adequate lighting, including night light 9. Assess need for additional bedding, food/fluids, pain med's prior to sleep/routinely 10. Provide gripper slippers or personal non-skid footwear 11. Teach patient and patient passenger relations representative to maintain environment for safety and engage in all aspects of fall prevention program 12. Remind patient to call for help before getting out of bed 13. Initiate bed/chair/exit alarms supportive devices as appropriate, (chair wedge, no-skid floor mat, raised edge mattress, hip protectors) 14. Locate patient bed assignment for optimal visualization 15. Evaluate and identify Safe Patient Handling Equipment needs 16. Provide supervision when out of bed or chair 17. Utilize gait belt as needed to assist with ambulation 18. Place adaptive equipment (cane, walker) within reach 19. Request patient passenger relations representative bring adaptive equipment/mobility aids from home or obtain and provide as needed 20. Consult pharmacy regarding effects of med's affecting mobility, cognition, and alternatives 21. Obtain physician order for PT if risk factors associated with mobility are present 22. Obtain physician order for OT as appropriate 23. Utilize diversional activities 24. Educate patient and patient passenger relations representative how to maintain a safe environment during visitation times (notify nurse prior to leaving bedside) 25. Consider appropriateness of medical or non-medical reception specialist 26. Set up voiding schedule as appropriate (every 2 hours) Outcome: Progressing Note: Evaluation of progress towards goal: Pt is free from falls. [facility] 07-15-2024 Plan of care note Problem: Safety Goal: Patient will be injury free during hospitalization Description: INTERVENTIONS: 1. Assess patient's risk for falls and implement fall prevention plan of care per policy 2. Provide and maintain a safe environment 3. Proper use of double Identifiers 4. Medication administration using the 5 rights 5. Hand hygiene 6. Specimens are labeled at the bedside 7. Instruct patient/ patient passenger relations representative about use of safety devices 8. Include patient/ patient passenger relations representative in decisions related to safety Outcome: Progressing Note: Evaluation of progress towards goal: Proper identifiers used with patient care and medication administration. Remains free of injury during shift Problem: Knowledge Deficit Goal: Patient/patient passenger relations representative demonstrates understanding of disease process, treatment plan, medications, and discharge instructions Description: INTERVENTIONS 1. Complete learning assessment and assess knowledge base 2. Provide teaching at level of understanding 3. Provide teaching via preferred learning method(s) Outcome: Progressing Note: Evaluation of progress towards goal: Verbalizes understanding of current treatment plan as educated. Will continue to educate for understanding. Problem: Discharge Planning Goal: Discharge to post-acute care, other facility, or home with appropriate resources Description: Patient's goal is: INTERVENTIONS 1. Conduct assessment to determine patient/family and health care team treatment goals, and need for post-acute services based on payer coverage, community resources, and patient preferences, and barriers to discharge 2. Coordinate with Social work, Care Navigation, and Utilization Review to arrange appropriate level of services according to patient's needs based on patient preference and payer coverage in collaboration with the physician and health care team 3. Address psychosocial, clinical, and financial barriers to discharge as identified in assessment in conjunction with the patient/family and health care team 4. Consult appropriate ancillary services (i.e.. PT/OT/ST, etc) as needed 5. Communicate with and update the patient/family, physician, and health care team regarding progress on the discharge plan 6. Identify discharge learning needs (meds, wound care, etc). 7. Arrange for needed discharge transportation as appropriate Outcome: Progressing Note: Evaluation of progress towards goal: Discharge planning in process. Will continue to monitor for discharge needs. Problem: Neurological Deficit Goal: Neurological status is stable or improving Description: Patient's goal is: INTERVENTIONS 1. Complete Neurological assessment as indicated/ordered 2. Initiate measures to prevent increased intracranial pressure 3. Monitor and assess patient's level of consciousness, motor function, sensory function, and level of assistance needed for ADLs 4. Monitor and report changes from baseline 5. Maintain blood pressure and fluid volume within ordered parameters to optimize cerebral perfusion and minimize risk of hemorrhage 6. Monitor labs and diagnostic tests 7. Administer anti-seizure medications as ordered 8. Maintain airway, patient safety and administer oxygen as ordered 9. Monitor patient for seizure activity, document and report duration and description of seizure to LIP 10. If seizure occurs, turn patient to side and suction secretions as needed 11. Reorient patient post seizure 12. Seizure pads on all 4 side rails 13. Instruct patient/family to notify RN of any seizure activity 14. Instruct patient/family to call for assistance with activity based on assessment 15. Utilize bleeding precautions if thrombolytic given Outcome: Progressing Note: Evaluation of progress towards goal: Neurological status evaluated for orientation, level of consciousness, motor function and sensory perception. Problem: Anxiety Goal: Anxiety is at manageable level Description: Patient's goal is: INTERVENTIONS 1. Assess and monitor patient's anxiety level 2. Monitor for signs and symptoms of anxiety both physical and emotional (heart palpitations, chest pain, shortness of breath, headaches, nausea, feeling jumpy, restlessness, irritable, apprehensive) 3. Reorient/orient patient to unit/surroundings 4. Explain treatment plan 5. Explain tests/procedures prior to initiation 6. Encourage participation in care 7. Encourage verbalization of concerns/fears 8. Assess coping mechanisms 9. Assist in developing anxiety-reducing skills 10. Administer complimentary therapies 11. Manage patient's environment 12. Limit or eliminate stimulants such as caffeine and nicotine 13. Collaborate with ancillary departments 14. Include patient/patient passenger relations representative in decisions related to anxiety Outcome: Progressing Note: Evaluation of progress towards goal: Patient verbalizes a tolerable anxiety level and remains free of signs and symptoms of anxiety. Will continue to explain treatment plan and monitor for changes in anxiety levels. Problem: Moderate - High Risk Fall Score Description: Gallegos Fall Score of =/> [address] [facility] Assessment Goal: Patient should be free from fall Description: Interventions: 1. [place] to environment 2. Hourly rounds addressing the 4 P's (Pain, Positioning, Possessions, Potty) 3. Clear area of hazards (spills, clutter, electrical cords, unnecessary equipment) 4. Place equipment (bed & TV controls, call light, phone, urinal) within reach 5. Encourage patient to wear glasses and hearing aides as appropriate 6. Maintain bed in lowest position 7. Lock wheels on bed/wheelchair 8. Provide adequate lighting, including night light 9. Assess need for additional bedding, food/fluids, pain med's prior to sleep/routinely 10. Provide gripper slippers or personal non-skid footwear 11. Teach patient and patient passenger relations representative to maintain environment for safety and engage in all aspects of fall prevention program 12. Remind patient to call for help before getting out of bed 13. Initiate bed/chair/exit alarms supportive devices as appropriate, (chair wedge, no-skid floor mat, raised edge mattress, hip protectors) 14. Locate patient bed assignment for optimal visualization 15. Evaluate and identify Safe Patient Handling Equipment needs 16. Provide supervision when out of bed or chair 17. Utilize gait belt as needed to assist with ambulation 18. Place adaptive equipment (cane, walker) within reach 19. Request patient passenger relations representative bring adaptive equipment/mobility aids from home or obtain and provide as needed 20. Consult pharmacy regarding effects of med's affecting mobility, cognition, and alternatives 21. Obtain physician order for PT if risk factors associated with mobility are present 22. Obtain physician order for OT as appropriate 23. Utilize diversional activities 24. Educate patient and patient passenger relations representative how to maintain a safe environment during visitation times (notify nurse prior to leaving bedside) 25. Consider appropriateness of medical or non-medical reception specialist 26. Set up voiding schedule as appropriate (every 2 hours) Outcome: Progressing Note: Evaluation of progress towards goal: Call light within reach. Remains free of fall or injury. Environment free of clutter. -[facility] [id number] 2024 Plan of care note Problem: Safety Goal: Patient will be injury free during hospitalization Description: INTERVENTIONS: 1. Assess patient's risk for falls and implement fall prevention plan of care per policy 2. Provide and maintain a safe environment 3. Proper use of double Identifiers 4. Medication administration using the 5 rights 5. Hand hygiene 6. Specimens are labeled at the bedside 7. Instruct patient/ patient passenger relations representative about use of safety devices 8. Include patient/ patient passenger relations representative in decisions related to safety Outcome: Progressing Note: Evaluation of progress towards goal: pain will be controlled to allow for rest and adl's Problem: Knowledge Deficit Goal: Patient/patient passenger relations representative demonstrates understanding of disease process, treatment plan, medications, and discharge instructions Description: INTERVENTIONS 1. Complete learning assessment and assess knowledge base 2. Provide teaching at level of understanding 3. Provide teaching via preferred learning method(s) Outcome: Progressing Note: Evaluation of progress towards goal: pt. Will have knoweldge of disease process and treatment by discharge Problem: Discharge Planning Goal: Discharge to post-acute care, other facility, or home with appropriate resources Description: Patient's goal is: INTERVENTIONS 1. Conduct assessment to determine patient/family and health care team treatment goals, and need for post-acute services based on payer coverage, community resources, and patient preferences, and barriers to discharge 2. Coordinate with Social work, Care Navigation, and Utilization Review to arrange appropriate level of services according to patient's needs based on patient preference and payer coverage in collaboration with the physician and health care team 3. Address psychosocial, clinical, and financial barriers to discharge as identified in assessment in conjunction with the patient/family and health care team 4. Consult appropriate ancillary services (i.e.. PT/OT/ST, etc) as needed 5. Communicate with and update the patient/family, physician, and health care team regarding progress on the discharge plan 6. Identify discharge learning needs (meds, wound care, etc). 7. Arrange for needed discharge transportation as appropriate Outcome: Progressing Note: Evaluation of progress towards goal: IPR Problem: Neurological Deficit Goal: Neurological status is stable or improving Description: Patient's goal is: INTERVENTIONS 1. Complete Neurological assessment as indicated/ordered 2. Initiate measures to prevent increased intracranial pressure 3. Monitor and assess patient's level of consciousness, motor function, sensory function, and level of assistance needed for ADLs 4. Monitor and report changes from baseline 5. Maintain blood pressure and fluid volume within ordered parameters to optimize cerebral perfusion and minimize risk of hemorrhage 6. Monitor labs and diagnostic tests 7. Administer anti-seizure medications as ordered 8. Maintain airway, patient safety and administer oxygen as ordered 9. Monitor patient for seizure activity, document and report duration and description of seizure to LIP 10. If seizure occurs, turn patient to side and suction secretions as needed 11. Reorient patient post seizure 12. Seizure pads on all 4 side rails 13. Instruct patient/family to notify RN of any seizure activity 14. Instruct patient/family to call for assistance with activity based on assessment 15. Utilize bleeding precautions if thrombolytic given Outcome: Progressing Note: Evaluation of progress towards goal: remains stable- goal of baseline Problem: Anxiety Goal: Anxiety is at manageable level Description: Patient's goal is: INTERVENTIONS 1. Assess and monitor patient's anxiety level 2. Monitor for signs and symptoms of anxiety both physical and emotional (heart palpitations, chest pain, shortness of breath, headaches, nausea, feeling jumpy, restlessness, irritable, apprehensive) 3. Reorient/orient patient to unit/surroundings 4. Explain treatment plan 5. Explain tests/procedures prior to initiation 6. Encourage participation in care 7. Encourage verbalization of concerns/fears 8. Assess coping mechanisms 9. Assist in developing anxiety-reducing skills 10. Administer complimentary therapies 11. Manage patient's environment 12. Limit or eliminate stimulants such as caffeine and nicotine 13. Collaborate with ancillary departments 14. Include patient/patient passenger relations representative in decisions related to anxiety Outcome: Progressing Note: Evaluation of progress towards goal: listen and reassuring Problem: Moderate - High Risk Fall Score Description: Gallegos Fall Score of =/> 25 or indicated by [facility] Assessment Goal: Patient should be free from fall Description: Interventions: 1. [place] to environment 2. Hourly rounds addressing the 4 P's (Pain, Positioning, Possessions, Potty) 3. Clear area of hazards (spills, clutter, electrical cords, unnecessary equipment) 4. Place equipment (bed & TV controls, call light, phone, urinal) within reach 5. Encourage patient to wear glasses and hearing aides as appropriate 6. Maintain bed in lowest position 7. Lock wheels on bed/wheelchair 8. Provide adequate lighting, including night light 9. Assess need for additional bedding, food/fluids, pain med's prior to sleep/routinely 10. Provide gripper slippers or personal non-skid footwear 11. Teach patient and patient passenger relations representative to maintain environment for safety and engage in all aspects of fall prevention program 12. Remind patient to call for help before getting out of bed 13. Initiate bed/chair/exit alarms supportive devices as appropriate, (chair wedge, no-skid floor mat, raised edge mattress, hip protectors) 14. Locate patient bed assignment for optimal visualization 15. Evaluate and identify Safe Patient Handling Equipment needs 16. Provide supervision when out of bed or chair 17. Utilize gait belt as needed to assist with ambulation 18. Place adaptive equipment (cane, walker) within reach 19. Request patient passenger relations representative bring adaptive equipment/mobility aids from home or obtain and provide as needed 20. Consult pharmacy regarding effects of med's affecting mobility, cognition, and alternatives 21. Obtain physician order for PT if risk factors associated with mobility are present 22. Obtain physician order for OT as appropriate 23. Utilize diversional activities 24. Educate patient and patient passenger relations representative how to maintain a safe environment during visitation times (notify nurse prior to leaving bedside) 25. Consider appropriateness of medical or non-medical reception specialist 26. Set up voiding schedule as appropriate (every 2 hours) Outcome: Progressing Note: Evaluation of progress towards goal: fallbundle -[facility] [id number] 2024 Progress note Formatting of t his note might be different from the original. DISCHARGE PLANNING NOTE Referrals sent to [facility] (P# [phone] ; F# [phone]) and to [facility] and to [facility] and to [facility] p#: [phone] f#: [phone] -[facility] [id number] 2024 Progress note Formatting of t his note might be different from the original. DISCHARGE PLANNING NOTE Follow-up Discharge Planning Progress Note Per RN during discharge transition rounds, barriers to discharge are: Accepting acute inpatient rehabilitation center. Discharge Plan: [employer] followed up with patient, spouse and patient sister at bedside. Updated, [facility], not accepting, not in network with patient insurance and unable to accommodate patient clinical needs. Discussed in detail choices and acceptance process-each individual hospital review and determine if in network with insurance, clinical accommodations and bed availability. If facility can accept, then insurance would need to approve or deny, discussed denial process including peer to peer and appeal, and appeal is last option with insurance company. Updated once insurance outcome in process, our team have to wait for outcome-we have no decision on approval or denial. Discussed lower levels of care such as [facility] and Home care. Patient spouse and sister verbalized understanding. Choices received. [facility] tasked to send referrals. Attempted to contact Jaciel Venegas, admission office closed on weekend. Care Navigation will continue to follow for any discharge needs. - Shweta Delgado RN 07/14/24 1:22 PM [id number] 07-13-2024 Plan of care note Problem: Safety Goal: Patient will be injury free during hospitalization Description: INTERVENTIONS: 1. Assess patient's risk for falls and implement fall prevention plan of care per policy 2. Provide and maintain a safe environment 3. Proper use of double Identifiers 4. Medication administration using the 5 rights 5. Hand hygiene 6. Specimens are labeled at the bedside 7. Instruct patient/ patient passenger relations representative about use of safety devices 8. Include patient/ patient passenger relations representative in decisions related to safety Outcome: Progressing Note: Evaluation of progress towards goal: Proper identifiers used with patient care and medication administration. Remains free of injury during shift Problem: Knowledge Deficit Goal: Patient/patient passenger relations representative demonstrates understanding of disease process, treatment plan, medications, and discharge instructions Description: INTERVENTIONS 1. Complete learning assessment and assess knowledge base 2. Provide teaching at level of understanding 3. Provide teaching via preferred learning method(s) Outcome: Progressing Note: Evaluation of progress towards goal: Verbalizes understanding of current treatment plan as educated. Will continue to educate for understanding. Problem: Discharge Planning Goal: Discharge to post-acute care, other facility, or home with appropriate resources Description: Patient's goal is: INTERVENTIONS 1. Conduct assessment to determine patient/family and health care team treatment goals, and need for post-acute services based on payer coverage, community resources, and patient preferences, and barriers to discharge 2. Coordinate with Social work, Care Navigation, and Utilization Review to arrange appropriate level of services according to patient's needs based on patient preference and payer coverage in collaboration with the physician and health care team 3. Address psychosocial, clinical, and financial barriers to discharge as identified in assessment in conjunction with the patient/family and health care team 4. Consult appropriate ancillary services (i.e.. PT/OT/ST, etc) as needed 5. Communicate with and update the patient/family, physician, and health care team regarding progress on the discharge plan 6. Identify discharge learning needs (meds, wound care, etc). 7. Arrange for needed discharge transportation as appropriate Outcome: Progressing Note: Evaluation of progress towards goal: Discharge planning in process. Will continue to monitor for discharge needs. Problem: Neurological Deficit Goal: Neurological status is stable or improving Description: Patient's goal is: INTERVENTIONS 1. Complete Neurological assessment as indicated/ordered 2. Initiate measures to prevent increased intracranial pressure 3. Monitor and assess patient's level of consciousness, motor function, sensory function, and level of assistance needed for ADLs 4. Monitor and report changes from baseline 5. Maintain blood pressure and fluid volume within ordered parameters to optimize cerebral perfusion and minimize risk of hemorrhage 6. Monitor labs and diagnostic tests 7. Administer anti-seizure medications as ordered 8. Maintain airway, patient safety and administer oxygen as ordered 9. Monitor patient for seizure activity, document and report duration and description of seizure to LIP 10. If seizure occurs, turn patient to side and suction secretions as needed 11. Reorient patient post seizure 12. Seizure pads on all 4 side rails 13. Instruct patient/family to notify RN of any seizure activity 14. Instruct patient/family to call for assistance with activity based on assessment 15. Utilize bleeding precautions if thrombolytic given Outcome: Progressing Note: Evaluation of progress towards goal: Neurological status evaluated for orientation, level of consciousness, motor function and sensory perception. Problem: Anxiety Goal: Anxiety is at manageable level Description: Patient's goal is: INTERVENTIONS 1. Assess and monitor patient's anxiety level 2. Monitor for signs and symptoms of anxiety both physical and emotional (heart palpitations, chest pain, shortness of breath, headaches, nausea, feeling jumpy, restlessness, irritable, apprehensive) 3. Reorient/orient patient to unit/surroundings 4. Explain treatment plan 5. Explain tests/procedures prior to initiation 6. Encourage participation in care 7. Encourage verbalization of concerns/fears 8. Assess coping mechanisms 9. Assist in developing anxiety-reducing skills 10. Administer complimentary therapies 11. Manage patient's environment 12. Limit or eliminate stimulants such as caffeine and nicotine 13. Collaborate with ancillary departments 14. Include patient/patient passenger relations representative in decisions related to anxiety Outcome: Progressing Note: Evaluation of progress towards goal: Patient remains free of signs and symptoms of anxiety. Will continue to explain treatment plan and monitor for changes in anxiety levels. Problem: Moderate - High Risk Fall Score Description: Gallegos Fall Score of =/> [address] [facility] Assessment Goal: Patient should be free from fall Description: Interventions: 1. [place] to environment 2. Hourly rounds addressing the 4 P's (Pain, Positioning, Possessions, Potty) 3. Clear area of hazards (spills, clutter, electrical cords, unnecessary equipment) 4. Place equipment (bed & TV controls, call light, phone, urinal) within reach 5. Encourage patient to wear glasses and hearing aides as appropriate 6. Maintain bed in lowest position 7. Lock wheels on bed/wheelchair 8. Provide adequate lighting, including night light 9. Assess need for additional bedding, food/fluids, pain med's prior to sleep/routinely 10. Provide gripper slippers or personal non-skid footwear 11. Teach patient and patient passenger relations representative to maintain environment for safety and engage in all aspects of fall prevention program 12. Remind patient to call for help before getting out of bed 13. Initiate bed/chair/exit alarms supportive devices as appropriate, (chair wedge, no-skid floor mat, raised edge mattress, hip protectors) 14. Locate patient bed assignment for optimal visualization 15. Evaluate and identify Safe Patient Handling Equipment needs 16. Provide supervision when out of bed or chair 17. Utilize gait belt as needed to assist with ambulation 18. Place adaptive equipment (cane, walker) within reach 19. Request patient passenger relations representative bring adaptive equipment/mobility aids from home or obtain and provide as needed 20. Consult pharmacy regarding effects of med's affecting mobility, cognition, and alternatives 21. Obtain physician order for PT if risk factors associated with mobility are present 22. Obtain physician order for OT as appropriate 23. Utilize diversional activities 24. Educate patient and patient passenger relations representative how to maintain a safe environment during visitation times (notify nurse prior to leaving bedside) 25. Consider appropriateness of medical or non-medical reception specialist 26. Set up voiding schedule as appropriate (every 2 hours) Outcome: Progressing Note: Evaluation of progress towards goal: Call light within reach. Remains free of fall or injury. Environment free of clutter. Problem: Safety - Medical Restraint Goal: Remains free of injury from restraints (Restraint for Interference with Hydrogen Power Plant Manager) Description: INTERVENTIONS: 1. Determine that other, less restrictive measures have been tried or would not be effective before applying the restraint 2. Evaluate the patient's condition at the time of restraint application 3. Inform patient/family regarding the reason for restraint 4. Q2H: Monitor safety, Vital signs, psychosocial status, signs of injury, skin integrity, circulation, neurovascular status in affected extremities, respiratory status, comfort, nutrition and hydration, hygiene, ROM, elimination needs 5. Doctor will be notified of restraint 6. RN properly applies restraints per physician order Outcome: Completed Goal: Free from restraint(s) (Restraint for Interference with Hydrogen Power Plant Manager) Description: INTERVENTIONS: 1. ONCE/SHIFT or MINIMUM Q12H: Assess and document the continuing need for restraints 2. Order is valid for the duration of the episode of care 3. Discontinue at the earliest possible time once the reason for restraints no longer exists 4. Identify and implement measures to help patient regain control 5. Food, fluids, and toilet offered at a minimum of every 2 hours 6. RN modifies the patient's plan of care by entering a problem statement related to safety; individualizes the safety outcome Outcome: Completed -[facility] [employer] [facility] 07-13-2024 Progress note Formatting of t his note might be different from the original. Per Lesia COVARRUBIAS CN patient's and sister were very upset that [facility] did not accept patient. They declined to offer any other choices for facilities to her at this time. Lesia encouraged them to allow her to make referrals to some TBI facilities at [facility] and in [place] but at this time they are angry that [facility] did not accept patient. Roll Forming Machine Operator will request SW follow up with them in the morning to obtain choices to continue developing a transition of care plan. -[facility] [employer] [facility] 07-13-2024 Progress note Formatting of t his note might be different from the original. DISCHARGE PLANNING NOTE Referral sent to [facility] P#[phone]; F#[phone]); [facility] of [facility] P# [phone] [calling report];/[facility] (P# [calling report]; F# ) [facility] 07-13-2024 Progress note Formatting of t his note might be different from the original. DISCHARGE PLANNING NOTE Per RN during discharge transition rounds, barriers to discharge are: Telesitter, PMR re-eval, Seroquel dose adjustment. Discharge Plan: [facility] for TBI rehab. PT/OT recommended [facility]. CN met with and sister Ewa. wants a referral sent [facility]. CN discussed discharge and making referrals to other TBI/ IPR rehabs in the state, and sister stated they are putting all their zak in [facility] being able to accept the patient. Manager New Product will continue to follow for any discharge needs. - Lesia Caba RN 07/13/24 12:18 PM Addendum: [facility] [employer] [facility]. gave CN two more choices : [facility] and [facility] rehab. [facility] tasked to send referrals. and sister are calling insurance to ask about a one time contract to [facility]. Ethel , [facility] rep, stopped in to talk to and sister. - Lesia Caba RN 07/13/24 2:10 PM Addendum: Patient's and sister asked CN to listen and talk to insurance adjuster regarding a one time approval for the [facility]: [facility]. Tax Attorney Xiomy with [facility] [employer] stated attending or managing physician needs to document patient's health status and progression, information on why the patient needs to go this specific facility for rehab, include diagnosis codes and services codes. Fax: Prior Auth Request to [phone] attn: Prior Auth Request at [employer]. CN sent pic chat to Dr. Nichol Heath. Dr. Heath asked if there is a form to fill out. CN called [facility] to see if they have generic PA request form. - Lesia Caba RN 07/13/24 3:15 PM [facility] was asked to review referral by CN leadership, and see if they can accept patient , then if they can accept the referral, [facility] can do the prior auth to the insurance for he one time approval. CN spoke to and other family member re: the process to see if [facility] can accept. - Lesia Caba RN 07/13/24 3:51 PM [facility] Progress note Formatting of t his note might be different from the original. DISCHARGE PLANNING NOTE [facility] to [facility] (P[facility] ; F# ) [facility] Progress note Formatting of t his note is different from the original. Occupational Therapy Evaluation Discharge Recommendations OT Recommendations : Inpatient Rehab Inpatient Rehab Criteria: All inpatient rehab criteria expected to be met (patient would benefit from rehab to address cognition, ADL, endurance. Patient was able to drive in Dec and was able to complete ADL tasks. Patient is not able to do so currently.) 6 Clicks: Daily Activity Putting on and taking off regular lower body clothing?: A lot Bathing (including washing, rinsing, drying)?: A lot Toileting, which includes using toilet, bedpan or urinal?: A lot Putting on and taking off regular upper body clothing?: A little Taking care of personal grooming such as brushing teeth?: A lot Eating meals?: None Scoring Daily Activity Raw Score: 15 CMS G Code Modifier: CK Occupational Profile Patient is a 58 year old male admitted with decline in cognition. Patient was functioning normally up until Jun 09, 2024. Patient was able to complete ADL tasks and drive at that time. Patient had fall at home. Patient had behavioral changes with sharp decline in mental status after fall. 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 Impression: acute decline in mental status after fall in May 2024 in setting of early onset alzheimers disease, possibly secondary to concussion versus TBI with agitation. 07-10-2024: lumbar puncture. CSF. Biomarkers in past confirmed early onset alzheimers disease. Patient was independent with ADL tasks and driving May 2024. Patient does not use a cane or walker. Patient is retired. See below for past medical and past surgical history. Past Medical History: Diagnosis Date GERD (gastroesophageal reflux disease) High cholesterol Perforated sigmoid colon (CMS-HCC) Past Surgical History: Procedure Laterality Date ARM EXPLORATION WITH REPAIR LACERATED ULNAR ARTERY Left 11/24/2019 Performed by Skyler Bowen MD at [facility] 3YEARS AGO COLOSTOMY CLOSURE Therapy Plan Need for skilled Occupational Therapy to address deficits in ADL independence and functional mobility due to a status decline resulting from decline in cognition and fall Jun 09, 2024 Recommended Consults: PM&R consult OT Treatment/Interventions: ADL retraining, Cognitive reorientation, Balance, Bed mobility, Functional transfer training, Patient/family training, Home management, Functional activities, Equipment eval/education OT Frequency: 3-4days/week OT Duration: aug 13, 2024 Assessment Patient Assessment Therapy Problem List: Decreased ADL status, Decreased balance, Decreased cognition, Decreased endurance, Decreased high-level ADLs, Decreased mobility, Decreased safe judgement during ADL, Decreased self-care trans Patient Response to Treatment: Slow progress, cognitive deficits Mood/Affect: Appropriate for circumstances Rehab Prognosis: With continued OT status post acute discharge, Good Visit RN Communication: Yes Medical Record Reviewed: Yes OT Type of Visit: Evaluation Precautions Activity: advance activity as tolerate per early mobility guidelines. Equipment: gait belt, telemetry Telemetry/Huc: Yes Oxygen Used: room air Other: fall risk, history of Alzheimers, fall May 2024 Pain Assessment Pain Assessment: No/denies pain Home Living Type of Home: House Home Layout: Two level, Bed/bath upstairs, Other (Comment) (full bath on main floor and can sleep on main floor.) Stairs to Enter: 3 in with bilateral rails Bathroom Shower/Tub: Tub/shower unit (tub shower has hand held and walk in shower has seat and hand held.) Other : no walker or cane. Prior Function Lives With: Spouse (lives with , Kari who does not work.) Level of Mobility: Independent with ADLs and functional transfers or gait Homemaking Assistance: ( does household tasks.) Vocational: Retired Other: patient was able to drive May 2024. Patient was last independent with all care May 2024. patient had fall Jun 09, 2024 and has trouble since. Patient was able to complete all ADL tasks prior to fall. does houehold tasks. ADL / IADL Where Assessed: Supine, bed, Edge of bed, Chair (patient left up in chair with call light in reach and RNNeela aware. in room with patient.) Eating Assistance: Setup Grooming Assistance: Min assist Bathing/Showering Assistance: Min assist Toilet/Commode Assistance: Min assist UE Dressing Assistance: Min assist LE Dressing Assistance: Min assist Footwear Assistance: Min assist Other: patient has trouble executing tasks. patient was able to ambulate into bathroom with contact guard. patient required min assist to doff underware and pants. 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 Patient was unable to void due to trouble with processing, safety and judgement. Home Management - IADL Other: patient has trouble executing tasks. patient was able to ambulate into bathroom with contact guard. patient required min assist to doff underware and pants. 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 Patient was unable to void due to trouble with processing, safety and judgement. Hearing / Speech / Vision Hearing: Within Functional Limits Speech: Within Functional Limits Cognition Overall Cognitive Status: Exceptions to Within Functional Limits Arousal/Alertness: Delayed responses to stimuli Orientation Level: Oriented to person (patient was not able to recognize , guille was not able to recall date of or age.) Safety Judgment: Decreased awareness of need for assistance Awareness of Errors: Decreased awareness of errors, Assistance required to identify errors made, Assistance required to correct errors made Insight of Deficits: Decreased awareness of deficits Problem Solving: Nonfunctional Interfering Components: Processing speed, Working memory, Attention - divided, Attention to detail Sensation Overall Sensation Status: Within Functional Limits Bed Mobility Supine to Sit: Stand by assist Transfers Sit to Stand: Contact guard assist, Verbal cues Stand to Sit: Contact guard assist, Verbal cues Toilet Transfers: Min assist, Verbal cues Gait Gait Assistance: Contact guard assist, Verbal cues Assistive Device: None Gait Distance: 250 feet with contact guard and min verbal cues for safety, slight loss of balance times 2 with ability to recover on his own. Limiting Factors to Gait: Cognition/difficulty following directions, Decreased safety Balance Sitting Balance: Static: Good Sitting Balance: Dynamic: Good Standing Balance: Static: Good Standing Balance: Dynamic: Fair RUE Assessment: Within Functional Limits LUE Assessment: Within Functional Limits Activity Tolerance Endurance: Tolerates 30 minutes activity with rest breaks Other: room air Plan Occupational Therapy Care Plan Occupational Therapy Care Plan (Active) Template: OT - Occupational Therapy Problem: Activity Tolerance Dates: Start: 07/13/24 Disciplines: OT Goal: No limitations to activity tolerance Dates: Start: 07/13/24 Expected End: 08/13/24 Description: Goal Description: Disciplines: OT Problem: Bathing LB Dates: Start: 07/13/24 Disciplines: OT Goal: Patient will perform bathing LB Independently Dates: Start: 07/13/24 Expected End: 08/13/24 Description: Goal Description: Disciplines: OT Problem: Bathing UB Dates: Start: 07/13/24 Disciplines: OT Goal: Patient will perform bathing UB Independently Dates: Start: 07/13/24 Expected End: 08/13/24 Description: Goal Description: Disciplines: OT Problem: Cognition Dates: Start: 07/13/24 Disciplines: OT Goal: Improve cognition Dates: Start: 07/13/24 Expected End: 08/13/24 Description: Patient will demonstrate good safety, judgement and ability to independently execute steps necessary for ADL tasks. Disciplines: OT Problem: Dressing LB Dates: Start: 07/13/24 Disciplines: OT Goal: Patient will perform dressing LB Independently Dates: Start: 07/13/24 Expected End: 08/13/24 Description: Goal Description: Disciplines: OT Problem: Dressing UB Dates: Start: 07/13/24 Disciplines: OT Goal: Patient will perform dressing UB Independently Dates: Start: 07/13/24 Expected End: 08/13/24 Description: Goal Description: Disciplines: OT Problem: Functional Mobility Dates: Start: 07/13/24 Disciplines: OT Goal: Patient will perform functional mobility Independently Dates: Start: 07/13/24 Expected End: 08/13/24 Description: Goal Description: Disciplines: OT Problem: Grooming Dates: Start: 07/13/24 Disciplines: OT Goal: Patient will perform grooming Independently Dates: Start: 07/13/24 Expected End: 08/13/24 Description: Goal Description: Disciplines: OT Problem: Standing Balance Dates: Start: 07/13/24 Disciplines: OT Goal: Improve balance to normal Dates: Start: 07/13/24 Expected End: 08/13/24 Description: Normal dynamic balance. Disciplines: OT Problem: Toilet Transfers Dates: Start: 07/13/24 Disciplines: OT Goal: Patient will perform toilet transfers Independently Dates: Start: 07/13/24 Expected End: 08/13/24 Description: Goal Description: Disciplines: OT Problem: Toileting Dates: Start: 07/13/24 Disciplines: OT Goal: Patient will perform toileting Independently Dates: Start: 07/13/24 Expected End: 08/13/24 Description: Goal Description: Disciplines: OT Problem: Transfers Dates: Start: 07/13/24 Disciplines: OT Goal: Patient will perform transfers Independently Dates: Start: 07/13/24 Expected End: 08/13/24 Description: Goal Description: Disciplines: OT Occupational Therapy Care Plan (Resolved) There are no resolved problems. Principal Problem: Dementia with behavioral disturbance ([facility]) Active Problems: Altered mental status Status post colostomy, follow-up exam ([facility]) [facility] 07-13-2024 Progress note Formatting of t his note is different from the original. Physical Therapy Evaluation Discharge Recommendations PT Recommendations: Inpatient Rehab Inpatient Rehab Criteria: All inpatient rehab criteria expected to be met 6 Clicks: Basic Mobility Turning from your back to your side while in a flat bed without using bed rails?: None Moving from lying on your back to sitting on side of flat bed without using bed rails?: None Moving to and from bed to a chair (including w/c)?: A little Standing up from a chair using your arms (e.g. w/c or bedside chair)?: A little To walk in hospital room?: A little Climbing 3-5 steps with a railing?: A little Scoring 6 Clicks: Basic Mobility Raw Score: 20 CMS G Code Modifier: CJ Therapy Plan Need for skilled Physical Therapy to address deficits in functional mobility due to a status decline resulting from admission 07/06 as a transfer from [facility] for neurological work up. Patient diagnosed with early onset dementia 2022, per spouse report after fci and med changes cognitive status had improved and stabilized prior to fall in May 2024. 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 Pt discharged to inpatient treatment facility and returned to [facility] for scheduled MRI. 07/07/2024 CT brain (-) ICH, mass effect or large vessel territorial ischemia. Moderate brain volume loss, greater than expected for age 1/21 LP - results pending 07/11 psychiatry evaluation completed, med changes PT Treatment/Interventions: Functional transfer training, Endurance training, Patient/family training, Equipment eval/education, Balance, Stair training, Gait training, Functional activities PT Frequency: 3-4days/week PT Duration: length of stay Patient Response to Treatment: Tolerated evaluation without adverse reaction Past Medical History: Diagnosis Date GERD (gastroesophageal reflux disease) High cholesterol Perforated sigmoid colon ([facility]) Past Surgical History: Procedure Laterality Date ARM EXPLORATION WITH REPAIR LACERATED ULNAR ARTERY Left 11/24/2019 Performed by Skyler Bowen MD at [facility] 3YEARS AGO COLOSTOMY CLOSURE Assessment Patient Assessment Therapy Problem List: Decreased balance, Decreased cognition, Decreased endurance, Decreased high-level ADLs, Decreased mobility, Decreased safe judgement during ADL Patient Response to Treatment: Tolerated evaluation without adverse reaction Mood/Affect: Appropriate for circumstances Rehab Prognosis: Good Visit RN Communication: Yes Medical Record Reviewed: Yes PT Type of Visit: Evaluation Precautions Activity: early mobility / pass Equipment: gait belt Telemetry/Huc: Yes Other: fall risk, recent TBI with behavioral changes, intermittent use of restraints Pain Assessment Pain Assessment: No/denies pain Home Living Type of Home: House Home Layout: Two level, Bed/bath upstairs, Able to live on main level with bedroom/bathroom Stairs to Enter: 3 Hand Rails: Bilateral Stairs in Home: flight Hand Rails in Home: (x1) Bathroom Shower/Tub: Tub/shower unit (tub/shower on first floor, walk in shower on second floor) Bathroom Toilet: Raised Bathroom Equipment: Hand-held shower, Built-in shower seat (walk in shower with built in seat and hand-held, tub/shower with hand-held) Other : No AD / DME use at baseline Prior Function Lives With: Spouse (currently able to provide 24-hour care) Level of Mobility: Independent with ADLs and functional transfers or gait Homemaking Assistance: Independent Other: Prior to fall May 2024 pt was independent with all IALDs, 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 Vocational: Retired ADL / IADL Hand Dominance: Right Hearing / Speech / Vision Hearing: Within Functional Limits Speech: Within Functional Limits Current Vision: Wears glasses only for reading Cognition Overall Cognitive Status: Exceptions to Within Functional Limits Memory: Decreased recall of biographical information, Decreased recall of recent events, Decreased immediate memory Orientation Level: Oriented to person, Disoriented to place, Disoriented to time, Disoriented to situation, Disoriented to month, Disoriented to age (unable to recall birthdate) Following Commands: Follows one step commands with increased time, Follows one step commands with repetition Safety Judgment: Decreased awareness of need for safety, Decreased awareness of need for assistance Awareness of Errors: Decreased awareness of errors Insight of Deficits: Decreased awareness of deficits Problem Solving: Reduced Interfering Components: Working memory Other: Patient pleasant and cooperative at this time Sensation Overall Sensation Status: (pt denies numbness / tingling) Bed Mobility Supine to Sit: Independent Sit to Supine: (remained up in chair with spouse in room, call light in reach with orientation to use of call light for support) Transfers Sit to Stand: Contact guard assist Stand to Sit: Contact guard assist Other: unsteady upon initial stand from EOB, cues and assist for safety / line management Gait Base of Support: Within Functional Limits Pattern: Decreased marty, R Decreased foot clearance, L Decreased foot clearance Gait Assistance: Contact guard assist Assistive Device: None Gait Distance: 250ft Other: Pt unsteady at times, able to self correct without LOB RLE Assessment: Within Functional Limits LLE Assessment: Within Functional Limits Activity Tolerance Endurance: Tolerates 30 minutes activity with rest breaks Plan Physical Therapy Care Plan Physical Therapy Care Plan (Active) Template: PT - Physical Therapy Problem: Activity Tolerance Dates: Start: 07/13/24 Disciplines: PT Goal: Tolerate > 30 minutes of activity WITH rest breaks Dates: Start: 07/13/24 Description: Goal Description: Disciplines: PT Problem: Gait Dates: Start: 07/13/24 Disciplines: PT Goal: Patient will perform gait Independently Dates: Start: 07/13/24 Description: With____,____feet Goal Description: Disciplines: PT Problem: Stairs/Curb Dates: Start: 07/13/24 Disciplines: PT Goal: Patient will perform stairs/curb with Modified [place] Dates: Start: 07/13/24 Description: steps, hand rails Goal Description: Disciplines: PT Problem: Standing Balance Dates: Start: 07/13/24 Disciplines: PT Goal: Improve balance to good Dates: Start: 07/13/24 Description: Static Dynamic Disciplines: PT Problem: Transfers Dates: Start: 07/13/24 Disciplines: PT Goal: Patient will perform transfers Independently Dates: Start: 07/13/24 Description: Goal Description: Disciplines: PT Physical Therapy Care Plan (Resolved) There are no resolved problems. Principal Problem: Dementia with behavioral disturbance ([facility]) Active Problems: Altered mental status Status post colostomy, follow-up exam ([facility]) [facility] 07-12-2024 Plan of care note Problem: Safety Goal: Patient will be injury free during hospitalization Description: INTERVENTIONS: 1. Assess patient's risk for falls and implement fall prevention plan of care per policy 2. Provide and maintain a safe environment 3. Proper use of double Identifiers 4. Medication administration using the 5 rights 5. Hand hygiene 6. Specimens are labeled at the bedside 7. Instruct patient/ patient passenger relations representative about use of safety devices 8. Include patient/ patient passenger relations representative in decisions related to safety Outcome: Progressing Note: Evaluation of progress towards goal: Patient remains injury and fall free. Safety precautions in place: call light within reach, bed in lowest position, personal belongings within reach, oriented to environment, and non-slip footwear on. Problem: Knowledge Deficit Goal: Patient/patient passenger relations representative demonstrates understanding of disease process, treatment plan, medications, and discharge instructions Description: INTERVENTIONS 1. Complete learning assessment and assess knowledge base 2. Provide teaching at level of understanding 3. Provide teaching via preferred learning method(s) Outcome: Progressing Note: Evaluation of progress towards goal: Patient needs information to be reinforced. Problem: Discharge Planning Goal: Discharge to post-acute care, other facility, or home with appropriate resources Description: Patient's goal is: INTERVENTIONS 1. Conduct assessment to determine patient/family and health care team treatment goals, and need for post-acute services based on payer coverage, community resources, and patient preferences, and barriers to discharge 2. Coordinate with Social work, Care Navigation, and Utilization Review to arrange appropriate level of services according to patient's needs based on patient preference and payer coverage in collaboration with the physician and health care team 3. Address psychosocial, clinical, and financial barriers to discharge as identified in assessment in conjunction with the patient/family and health care team 4. Consult appropriate ancillary services (i.e.. PT/OT/ST, etc) as needed 5. Communicate with and update the patient/family, physician, and health care team regarding progress on the discharge plan 6. Identify discharge learning needs (meds, wound care, etc). 7. Arrange for needed discharge transportation as appropriate Outcome: Progressing Note: Evaluation of progress towards goal: Discharge planning is to be determined. Care blessing is working on plan. Problem: Neurological Deficit Goal: Neurological status is stable or improving Description: Patient's goal is: INTERVENTIONS 1. Complete Neurological assessment as indicated/ordered 2. Initiate measures to prevent increased intracranial pressure 3. Monitor and assess patient's level of consciousness, motor function, sensory function, and level of assistance needed for ADLs 4. Monitor and report changes from baseline 5. Maintain blood pressure and fluid volume within ordered parameters to optimize cerebral perfusion and minimize risk of hemorrhage 6. Monitor labs and diagnostic tests 7. Administer anti-seizure medications as ordered 8. Maintain airway, patient safety and administer oxygen as ordered 9. Monitor patient for seizure activity, document and report duration and description of seizure to LIP 10. If seizure occurs, turn patient to side and suction secretions as needed 11. Reorient patient post seizure 12. Seizure pads on all 4 side rails 13. Instruct patient/family to notify RN of any seizure activity 14. Instruct patient/family to call for assistance with activity based on assessment 15. Utilize bleeding precautions if thrombolytic given Outcome: Progressing Note: Evaluation of progress towards goal: Assess and report any changes in neurological status. Neurological status and vital signs q4h and with any changes in condition. Problem: Anxiety Goal: Anxiety is at manageable level Description: Patient's goal is: INTERVENTIONS 1. Assess and monitor patient's anxiety level 2. Monitor for signs and symptoms of anxiety both physical and emotional (heart palpitations, chest pain, shortness of breath, headaches, nausea, feeling jumpy, restlessness, irritable, apprehensive) 3. Reorient/orient patient to unit/surroundings 4. Explain treatment plan 5. Explain tests/procedures prior to initiation 6. Encourage participation in care 7. Encourage verbalization of concerns/fears 8. Assess coping mechanisms 9. Assist in developing anxiety-reducing skills 10. Administer complimentary therapies 11. Manage patient's environment 12. Limit or eliminate stimulants such as caffeine and nicotine 13. Collaborate with ancillary departments 14. Include patient/patient passenger relations representative in decisions related to anxiety Outcome: Progressing Note: Evaluation of progress towards goal: Patient's has at bedside to help with spells of anxiety. Problem: Moderate - High Risk Fall Score Description: Gallegos Fall Score of =/> 25 or indicated by [facility] Assessment Goal: Patient should be free from fall Description: Interventions: 1. [place] to environment 2. Hourly rounds addressing the 4 P's (Pain, Positioning, Possessions, Potty) 3. Clear area of hazards (spills, clutter, electrical cords, unnecessary equipment) 4. Place equipment (bed & TV controls, call light, phone, urinal) within reach 5. Encourage patient to wear glasses and hearing aides as appropriate 6. Maintain bed in lowest position 7. Lock wheels on bed/wheelchair 8. Provide adequate lighting, including night light 9. Assess need for additional bedding, food/fluids, pain med's prior to sleep/routinely 10. Provide gripper slippers or personal non-skid footwear 11. Teach patient and patient passenger relations representative to maintain environment for safety and engage in all aspects of fall prevention program 12. Remind patient to call for help before getting out of bed 13. Initiate bed/chair/exit alarms supportive devices as appropriate, (chair wedge, no-skid floor mat, raised edge mattress, hip protectors) 14. Locate patient bed assignment for optimal visualization 15. Evaluate and identify Safe Patient Handling Equipment needs 16. Provide supervision when out of bed or chair 17. Utilize gait belt as needed to assist with ambulation 18. Place adaptive equipment (cane, walker) within reach 19. Request patient passenger relations representative bring adaptive equipment/mobility aids from home or obtain and provide as needed 20. Consult pharmacy regarding effects of med's affecting mobility, cognition, and alternatives 21. Obtain physician order for PT if risk factors associated with mobility are present 22. Obtain physician order for OT as appropriate 23. Utilize diversional activities 24. Educate patient and patient passenger relations representative how to maintain a safe environment during visitation times (notify nurse prior to leaving bedside) 25. Consider appropriateness of medical or non-medical reception specialist 26. Set up voiding schedule as appropriate (every 2 hours) Outcome: Progressing Note: Evaluation of progress towards goal: Patient remains injury and fall free. Safety precautions in place: call light within reach, bed in lowest position, personal belongings within reach, oriented to environment, and non-slip footwear on. Problem: Safety - Medical Restraint Goal: Remains free of injury from restraints (Restraint for Interference with Hydro[employer] Power Plant Manager) Description: INTERVENTIONS: 1. Determine that other, less restrictive measures have been tried or would not be effective before applying the restraint 2. Evaluate the patient's condition at the time of restraint application 3. Inform patient/family regarding the reason for restraint 4. Q2H: Monitor safety, Vital signs, psychosocial status, signs of injury, skin integrity, circulation, neurovascular status in affected extremities, respiratory status, comfort, nutrition and hydration, hygiene, ROM, elimination needs 5. Doctor will be notified of restraint 6. RN properly applies restraints per physician order Outcome: Progressing Note: Evaluation of progress towards goal: Q2H: Monitor safety, Vital signs, psychosocial status, signs of injury, skin integrity, circulation, neurovascular status in affected extremities, respiratory status, comfort, nutrition and hydration, hygiene, ROM, elimination needs Goal: Free from restraint(s) (Restraint for Interference with Hydro[employer] Power Plant Manager) Description: INTERVENTIONS: 1. ONCE/SHIFT or MINIMUM Q12H: Assess and document the continuing need for restraints 2. Order is valid for the duration of the episode of care 3. Discontinue at the earliest possible time once the reason for restraints no longer exists 4. Identify and implement measures to help patient regain control 5. Food, fluids, and toilet offered at a minimum of every 2 hours 6. RN modifies the patient's plan of care by entering a problem statement related to safety; individualizes the safety outcome Outcome: Progressing Note: Evaluation of progress towards goal: Q2H: Monitor safety, Vital signs, psychosocial status, signs of injury, skin integrity, circulation, neurovascular status in affected extremities, respiratory status, comfort, nutrition and hydration, hygiene, ROM, elimination needs [facility] 07-12-2024 Progress note Formatting of t his note might be different from the original. DISCHARGE PLANNING NOTE Per RN during discharge transition rounds, barriers to discharge are: PMR consult today, 2 point restraints, telesitter Discharge Plan: TBD. PMR is requesting PT/OT notes. Will wait for therapy input. not available this afternoon. CN escalated this case to CN leadership. Manager New Product will continue to follow for any discharge needs. - Lesia Caba RN 07/12/24 3:24 PM [facility] 07-12-2024 Plan of care note Problem: Safety Goal: Patient will be injury free during hospitalization Description: INTERVENTIONS: 1. Assess patient's risk for falls and implement fall prevention plan of care per policy 2. Provide and maintain a safe environment 3. Proper use of double Identifiers 4. Medication administration using the 5 rights 5. Hand hygiene 6. Specimens are labeled at the bedside 7. Instruct patient/ patient passenger relations representative about use of safety devices 8. Include patient/ patient passenger relations representative in decisions related to safety Outcome: Progressing Note: Evaluation of progress towards goal: Patient remains injury free at present time. Safe environment provided and maintained. Medications administered using 5 rights. Problem: Knowledge Deficit Goal: Patient/patient passenger relations representative demonstrates understanding of disease process, treatment plan, medications, and discharge instructions Description: INTERVENTIONS 1. Complete learning assessment and assess knowledge base 2. Provide teaching at level of understanding 3. Provide teaching via preferred learning method(s) Outcome: Progressing Note: Evaluation of progress towards goal: Daily plan of care reviewed with patient. Patient demonstrates an understanding of plan. Will continue to monitor for any questions/concerns patient may have. Problem: Discharge Planning Goal: Discharge to post-acute care, other facility, or home with appropriate resources Description: Patient's goal is: INTERVENTIONS 1. Conduct assessment to determine patient/family and health care team treatment goals, and need for post-acute services based on payer coverage, community resources, and patient preferences, and barriers to discharge 2. Coordinate with Social work, Care Navigation, and Utilization Review to arrange appropriate level of services according to patient's needs based on patient preference and payer coverage in collaboration with the physician and health care team 3. Address psychosocial, clinical, and financial barriers to discharge as identified in assessment in conjunction with the patient/family and health care team 4. Consult appropriate ancillary services (i.e.. PT/OT/ST, etc) as needed 5. Communicate with and update the patient/family, physician, and health care team regarding progress on the discharge plan 6. Identify discharge learning needs (meds, wound care, etc). 7. Arrange for needed discharge transportation as appropriate Outcome: Progressing Note: Evaluation of progress towards goal: Plan is currently [facility] TBI clinic. Care blessing, pt/ot, Pmr following. Problem: Neurological Deficit Goal: Neurological status is stable or improving Description: Patient's goal is: INTERVENTIONS 1. Complete Neurological assessment as indicated/ordered 2. Initiate measures to prevent increased intracranial pressure 3. Monitor and assess patient's level of consciousness, motor function, sensory function, and level of assistance needed for ADLs 4. Monitor and report changes from baseline 5. Maintain blood pressure and fluid volume within ordered parameters to optimize cerebral perfusion and minimize risk of hemorrhage 6. Monitor labs and diagnostic tests 7. Administer anti-seizure medications as ordered 8. Maintain airway, patient safety and administer oxygen as ordered 9. Monitor patient for seizure activity, document and report duration and description of seizure to LIP 10. If seizure occurs, turn patient to side and suction secretions as needed 11. Reorient patient post seizure 12. Seizure pads on all 4 side rails 13. Instruct patient/family to notify RN of any seizure activity 14. Instruct patient/family to call for assistance with activity based on assessment 15. Utilize bleeding precautions if thrombolytic given Outcome: Progressing Note: Evaluation of progress towards goal: Patient oriented to self, with intermittent agitation, q4 neuro checks. Problem: Anxiety Goal: Anxiety is at manageable level Description: Patient's goal is: INTERVENTIONS 1. Assess and monitor patient's anxiety level 2. Monitor for signs and symptoms of anxiety both physical and emotional (heart palpitations, chest pain, shortness of breath, headaches, nausea, feeling jumpy, restlessness, irritable, apprehensive) 3. Reorient/orient patient to unit/surroundings 4. Explain treatment plan 5. Explain tests/procedures prior to initiation 6. Encourage participation in care 7. Encourage verbalization of concerns/fears 8. Assess coping mechanisms 9. Assist in developing anxiety-reducing skills 10. Administer complimentary therapies 11. Manage patient's environment 12. Limit or eliminate stimulants such as caffeine and nicotine 13. Collaborate with ancillary departments 14. Include patient/patient passenger relations representative in decisions related to anxiety Outcome: Progressing Note: Evaluation of progress towards goal: Patient has family at bedside assisting with anxiety. Problem: Safety - Medical Restraint Goal: Remains free of injury from restraints (Restraint for Interference with Hydro[employer] Power Plant Manager) Description: INTERVENTIONS: 1. Determine that other, less restrictive measures have been tried or would not be effective before applying the restraint 2. Evaluate the patient's condition at the time of restraint application 3. Inform patient/family regarding the reason for restraint 4. Q2H: Monitor safety, Vital signs, psychosocial status, signs of injury, skin integrity, circulation, neurovascular status in affected extremities, respiratory status, comfort, nutrition and hydration, hygiene, ROM, elimination needs 5. Doctor will be notified of restraint 6. RN properly applies restraints per physician order Outcome: Progressing Note: Evaluation of progress towards goal: Patient in non violent bilateral wrist restraints, q2 checks, currently free from injury. Goal: Free from restraint(s) (Restraint for Interference with Hydro[employer] Power Plant Manager) Description: INTERVENTIONS: 1. ONCE/SHIFT or MINIMUM Q12H: Assess and document the continuing need for restraints 2. Order is valid for the duration of the episode of care 3. Discontinue at the earliest possible time once the reason for restraints no longer exists 4. Identify and implement measures to help patient regain control 5. Food, fluids, and toilet offered at a minimum of every 2 hours 6. RN modifies the patient's plan of care by entering a problem statement related to safety; individualizes the safety outcome Outcome: Progressing Note: Evaluation of progress towards goal: RN assess q2 restraints, qshift assessed for necessity. [facility] 07-12-2024 Progress note Formatting of t his note is different from the original. Speech Therapy Speech & Language Cognitive Evaluation and Treatment Note Impressions Receptive Language: Moderate-severe Expressive Language: Moderate-severe Cognitive Linguistic: Moderate-severe Recommendations Discharge Recommendations: (continued speech services) Rehab Therapy Type: Individual treatment Plan Frequency: 3-4days/week Duration: until discharge Treatments/Modalities: Strategies/techniques training Need for skilled Speech Language Pathology Services to address deficits in speech/language/cognition due to a status decline resulting from altered mental status. Pt, pt's family, and RN educated on results and recommendations of evaluation. Pt responds well to verbal redirections, semantic cues, repetition, and increased processing time. Will continue to follow along. Prognosis Services: Skilled FRUIT THINNER services to address the above deficits Prognosis/Potential: Good Considerations: Age, Ability to learn, Previous level of function Assessment Oral/Motor Overall Oral/Motor Status: Within Functional Limits Breath Support: Adequate for speech Dentition: Adequate Xerostomia: No Hearing: Within Functional Limits Auditory Comprehension Overall Auditory Comphension Status: Exceptions to Within Functional Limits Yes/No Questions: Exceptions to WFL Basic Questions: Moderate Complex Questions: Moderate Commands: Exceptions to WFL Two Step Basic Commands: Mild Multistep Basic Commands: Moderate Conversation: Simple Paragraph: Moderate Sentence: Moderate Perception Overall Perception Status: Exceptions to Within Functional Limits Initiation: Cues to initiate tasks Visual Recognition Overall Visual Recognition Status: Within Functional Limits Reading Comprehension Overall Reading Status: Not Assessed Expression Overall Expression Status: Exceptions to Within Functional Limits Primary Mode of Expression: Verbal Verbal Expression Overall Verbal Expression Status: Exceptions to Within Functional Limits Initiation: Impairment Naming: Impairment Confrontation: Mild Convergent: Moderate Divergent: Moderate Responsive: Mild Speech Production Overall Speech Production: Within Functional Limits Voice Evaluation Overall Voice Impairment Severity: None Pragmatics/Social Functioning Overall Pragmatic Status: Exceptions to Within Functional Limits Abnormal Affect: Mild Inconsistent Eye Contact: Mild Topic Initiation: Moderate Topic Maintenance: Moderate Turn Taking: Moderate Fluency Comments: no dysfluencies noted High Level Language Overall High Level Language Status: Exceptions to Within Functional Limits Attention: Exceptions to WFL Alternating Attention: Moderate Divided Attention: Moderate Selective Attention: Moderate Sustained Attention: Moderate Memory: Exceptions to WFL Daily Routines: Moderate Immediate Memory: Severe Short-term Memory: Severe Working Memory: Moderate Problem Solving: Exceptions to WFL Complex Functional Tasks: Severe Managing Finances: Moderate Managing Medications: Moderate Performing Discharge Planning: Moderate Simple Functional Tasks: Moderate Numeric Reasoning: Unable to assess Abstract Reasoning: Moderate Inductive Reasoning: Moderate Deductive Reasoning: Moderate Safety/Judgement: Exceptions to WFL Novel Situations: Severe Routine Tasks: Moderate Unable to Self-monitor and Self-correct Consistently: Moderate Insight: Moderate insight Impulsive: Moderately impulsive Task Initiation: Initiates with cues Flexibility of Thought: Reduced flexibility Planning: Reduced planning skills Organization: Severely disorganized Sequencing: Moderate Processing Speed: Mild Cognition Overall Cognitive Status: Exceptions to Within Functional Limits Arousal/Alertness: Delayed responses to stimuli Attention Span: Difficulty attending to directions Memory: Decreased immediate memory, Decreased short term memory, Decreased recall of biographical information, Decreased recall of recent events Orientation Level: Oriented to person, Oriented to place, Disoriented to time Following Commands: Follows one step commands consistently Safety Judgment: Decreased awareness of need for safety, Decreased awareness of need for assistance Awareness of Errors: Decreased awareness of errors Insight of Deficits: Decreased awareness of deficits Problem Solving: Assistance required to implement solutions, Assistance required to generate solutions Pain Assessment Pain Assessment: No/denies pain Plan Diagnosis Code Language: R48.8 Other symbolic dysfunction/acalculia/agraphia Speech Therapy Care Plan Speech Therapy Care Plan (Active) Template: [facility] Speech Problem: Auditory Comprehension Dates: Start: 07/12/24 Disciplines: FRUIT THINNER Goal: LTG: Patient will comprehend communication related to basic medical and social needs and utilize compensatory strategies to maintain safety in a functional living environment Dates: Start: 07/12/24 Expected End: 08/12/24 Disciplines: FRUIT THINNER Goal: STG: Patient will answer complex yes/no questions with 90% accuracy with minimal cueing Dates: Start: 07/12/24 Expected End: 08/12/24 Disciplines: FRUIT THINNER Goal: STG: Patient will complete 1-3 step commands with 90% accuracy with minimal cueing Dates: Start: 07/12/24 Expected End: 08/12/24 Disciplines: FRUIT THINNER Goal: STG: Patient will complete simple, phrase level auditory comprehension tasks with 90% accuracy with minimal cueing Dates: Start: 07/12/24 Expected End: 08/12/24 Disciplines: FRUIT THINNER Problem: Cognitive Linguistic Dates: Start: 07/12/24 Disciplines: FRUIT THINNER Goal: LTG: Patient will display functional cognitive-linguistic skills to demonstrate appropriate communication and safety within daily activities in a functional living environment Dates: Start: 07/12/24 Expected End: 08/12/24 Disciplines: FRUIT THINNER Goal: STG: Patient will demonstrate sustained attention by maintaining focus during a task for 10 minutes with minimal assistance Dates: Start: 07/12/24 Expected End: 08/12/24 Disciplines: FRUIT THINNER Goal: STG: Patient will be appropriately oriented to person, place, time and situation with 90% accuracy with minimal cueing Dates: Start: 07/12/24 Expected End: 08/12/24 Disciplines: FRUIT THINNER Goal: STG: Patient will recall information discussed during therapy session via retelling/answering questions with 90% accuracy with minimal cueing Dates: Start: 07/12/24 Expected End: 08/12/24 Disciplines: FRUIT THINNER Problem: High Level Language Dates: Start: 07/12/24 Disciplines: FRUIT THINNER Goal: LTG: Patient will demonstrate use of self-awareness, goal setting, planning, initiation, self-monitoring and problem solving during daily activities to improve safety and awareness in a functional living environment Dates: Start: 07/12/24 Expected End: 08/12/24 Disciplines: FRUIT THINNER Goal: STG: Patient will sequence 4-6 steps to a task (verbal, written, pictures) with 90% accuracy with minimal cueing Dates: Start: 07/12/24 Expected End: 08/12/24 Disciplines: FRUIT THINNER Goal: STG: Patient will provide 3 appropriate solutions to problems of daily living with 90% accuracy with minimal cueing Dates: Start: 07/12/24 Expected End: 08/12/24 Disciplines: FRUIT THINNER Goal: STG: Patient will demonstrate functional problem solving and safety awareness with 90% accuracy in daily living tasks in order to increase safe interactions with environment and decrease assistance from caregivers Dates: Start: 07/12/24 Expected End: 08/12/24 Disciplines: FRUIT THINNER Problem: Verbal Expression Dates: Start: 07/12/24 Disciplines: FRUIT THINNER Goal: LTG: Patient will utilize compensatory strategies to communicate wants and needs effectively to different conversational partners, maintain safety and participate socially in a functional living environment Dates: Start: 07/12/24 Expected End: 08/12/24 Disciplines: FRUIT THINNER Goal: STG: Patient will respond to simple/complex open ended questions during activities of daily living with 90% accuracy with minimal cueing Dates: Start: 07/12/24 Expected End: 08/12/24 Disciplines: FRUIT THINNER Goal: STG: Patient will maintain topic of conversation to decrease tangential speech with 90% accuracy with minimal cueing Dates: Start: 07/12/24 Expected End: 08/12/24 Disciplines: FRUIT THINNER Speech Therapy Care Plan (Resolved) There are no resolved problems. Principal Problem: Dementia with behavioral disturbance ([facility]) Active Problems: Altered mental status Status post colostomy, follow-up exam ([facility]) [facility] 07-12-2024 Miscellaneous Notes Patient's sister, Ewa (not on HIPAA), called in asking to speak with Dr Price regarding patient's admission at [facility]. Patient had a tele consult with Dr Price on 07/03/24. Ewa would like to discuss some concerns that she has with Dr Price and possibly set up a hospital follow up. She is asking for a call back to further discuss [phone] CALLED AND SPOKE TO EWA TO LET HER KNOW THAT NOTHING CAN BE DISCUSSED WITH HER DUE TO HER NOT BEING ON PATIENTS HIPAA. EWA UNDERSTOOD Patient's spouse [phone] stated that they would like a call back to discuss [facility] stay. Called and spoke to patients and told her Dr Price seen Noé on a consultation on 07/03/24 and is no longer under his care. Dr Price consulted because he was telephone quotation clerk and that the patient is still in the hospital and under their care and she would have to advise with his care team. She asked if I could refer to Neurology I told her she would again have to talk to the team that is taking care of her or to contact her insurance company to find a neurologist where she lives that would accept the insurance. Spouse understood and will talk to the care team and her insurance company. documented in this encounter [email or web address] 07-12-2024 Telephone encounter Note Patient's sister, Ewa (not on HIPAA), called in asking to speak with Dr Price regarding patient's admission at [facility]. Patient had a tele consult with Dr Price on 07/03/24. Ewa would like to discuss some concerns that she has with Dr Price and possibly set up a hospital follow up. She is asking for a call back to further discuss [phone] [email or web address] 07-12-2024 Telephone encounter Note CALLED AND SPOKE TO EWA TO LET HER KNOW THAT NOTHING CAN BE DISCUSSED WITH HER DUE TO HER NOT BEING ON PATIENTS HIPAA. EWA UNDERSTOOD [email or web address] 07-12-2024 Telephone encounter Note Patient's spouse [phone] stated that they would like a call back to discuss [facility] stay. [email or web address] 07-12-2024 Telephone encounter Note Called and spoke to patients and told her Dr Price seen Noé on a consultation on 07/03/24 and is no longer under his care. Dr Price consulted because he was telephone quotation clerk and that the patient is still in the hospital and under their care and she would have to advise with his care team. She asked if I could refer to Neurology I told her she would again have to talk to the team that is taking care of her or to contact her insurance company to find a neurologist where she lives that would accept the insurance. Spouse understood and will talk to the care team and her insurance company. [facility] 07-12-2024 Consult note Associated Order (s): IP CONSULT TO PHYSICAL MEDICINE REHAB Images from the original note were not included. PHYSICAL MEDICINE AND REHABILITATION CONSULT Date of Admission: 07/06/2024 7:28 AM Referring Physician: Nichol Heath MD PCP: JAE LOPEZ MD Chief Compliant: Principal Problem: Dementia with behavioral disturbance ([facility]) Active Problems: Altered mental status Status post colostomy, follow-up exam ([facility]) Reason for Consultation: Rehabilitation Candidacy and Rehab Clinical Documentation Clerk Physicians/Services Consulting Providers Provider Service Specialty Mina Franks MD Psychiatry Psychiatry Jessica Johnson MD -- Neurology Sonya Astudillo MD Z Physical Medicine and Rehabilitation Physical Medicine & Rehabilitation History Of Present Illness: Noé Jeffery is a 58 y.o. male early-onset Alzheimer's dementia, type 2 diabetes, dyslipidemia who presents to the hospital with altered mental status on 07/06/2024 7:28 AM. Upon the arrival patient was very confused. And he was also on salt wrist restraints as well. Patient is seen with psychiatrist recommending memory care unit. Patient was becoming agitated and requiring restraints overnight. CSF studies been normal. MRI of the brain did not show any any aggressive brain lesions or enhancing lesions. According to , patient had a fall about a month ago, since then patient has been more confused and combative. I was consulted regarding Rehabilitation needs. ROS : A comprehensive 14 review of systems was negative except for confusion, gait difficulty and debility hallucination and agitation Cardiovascular ROS: negative Respiratory ROS: negative Neurological ROS: positive for - behavioral changes and gait disturbance Musculoskeletal ROS: positive for - gait disturbance and muscular weakness PMH Past Medical History: Diagnosis Date GERD (gastroesophageal reflux disease) High cholesterol Perforated sigmoid colon ([facility]) PSH Past Surgical History: Procedure Laterality Date ARM EXPLORATION WITH REPAIR LACERATED ULNAR ARTERY Left 11/24/2019 Performed by Skyler Bowen MD at [facility] COLONOSCOPY [facility] 3YEARS AGO COLOSTOMY CLOSURE Allergies Allergies Allergen Reactions Diphenhydramine Abnormal Behavior Medications: Scheduled meds divalproex sprinkle, 500 mg, oral, Q12H JAREK donepeziL, 5 mg, oral, Nightly DULoxetine, 20 mg, oral, Daily heparin (porcine), 5,000 Units, subcutaneous, Q8H JAREK melatonin, 5 mg, oral, Nightly nicotine, 1 patch, transdermal, Daily pantoprazole, 40 mg, oral, QAM AC QUEtiapine, 150 mg, oral, Nightly AND QUEtiapine, 50 mg, oral, Daily sodium chloride, 3 mL, intravenous, Q12H JAERK PRN meds acetaminophen dextrose dextrose 50 % in water (D50W) glucagon (human recombinant) ondansetron ODT sennosides-docusate sodium sodium chloride sodium chloride ziprasidone Social History Social History Socioeconomic History Marital status: Spouse name: Not on file Number of children: Not on file Years of education: Not on file Highest education level: Not on file Occupational History Not on file Tobacco Use Smoking status: Never Smokeless tobacco: Never Substance and Sexual Activity Alcohol use: No Drug use: No Sexual activity: Defer Partners: Female Other Topics Concern Not on file Social History Narrative Not on file Social Drivers of Health Financial Resource Strain: Not on file Food Insecurity: Patient Unable To Answer (07/06/2024) Hunger Screening Food Insecurity - Worry: Patient unable to answer Food Insecurity - Inability: Patient unable to answer Transportation Needs: Patient Unable To Answer (07/06/2024) PRAPARE - Transportation Lack of Transportation (Medical): Patient unable to answer Lack of Transportation (Non-Medical): Patient unable to answer Physical Activity: Not on file Stress: Not on file Social Connections: Not on file Interpersonal Safety: Patient Unable To Answer (07/06/2024) Humiliation, Afraid, Rape, and Kick questionnaire Fear of Current or Ex-Partner: Patient unable to answer Emotionally Abused: Patient unable to answer Physically Abused: Patient unable to answer Sexually Abused: Patient unable to answer Housing Instability: Patient Unable To Answer (07/06/2024) Housing Instability Housing Instability: Patient unable to answer Patient was living at home with family but he was functional at home. He became more confused and agitated. Premorbid level of function: Family History Family History Problem Relation Age of Onset Breast cancer Sister Physical Examination Vital Signs: Blood pressure 132/78, pulse 63, temperature 36.4 C (97.5 F), temperature source Oral, resp. rate 20, weight 83.9 kg (184 lb 15.5 oz), SpO2 95%. Admission Weight: Weight: 83.9 kg (184 lb 15.5 oz) General Appearance: confused, did not recognize his sister. Head: Normocephalic, without obvious abnormality, atraumatic Eyes: conjunctivae/corneas clear. PERRL, EOM's intact. Fundi benign. ENT: ENT exam normal, no neck nodes or sinus tenderness Neck: no adenopathy, no carotid bruit, no JVD, supple, symmetrical, trachea midline, and thyroid not enlarged, symmetric, no tenderness/mass/nodules Lungs: clear to auscultation bilaterally Heart: regular rate and rhythm, S1, S2 normal, no murmur, click, rub or gallop Abdomen: soft, non-tender; bowel sounds normal; no masses, no organomegaly Extremities: extremities normal, atraumatic, no cyanosis or edema Skin: Skin color, texture, turgor normal. No rashes or lesions Neurologic: confused. IMAGE: No results found. LABS Recent Results (from the past 48 hours) CSF spinal fluid cell count Collection Time: 07/10/24 9:39 AM Result Value Ref Range CSF nucleated cells 1 0 - 5 /uL CSF RBC 48 (H) 0 - 1 /uL CSF color COLORLESS CSF clarity CLEAR CSF supernatant COLORLESS CSF comment TUBE 3 CSF diff NUCLEATED CELLS <5/uL; DIFF NOT TESTED Csf total protein Collection Time: 07/10/24 9:39 AM Result Value Ref Range Protein, CSF 45 15 - 45 mg/dL Cytology Collection Time: 07/10/24 9:39 AM [facility] [address] [place] [address] Cytology Consultation Patient Name:NOÉ JEFFERY:1965 (Age: 58)Gender:MTaken:07/10/2024Report ed:07/11/2024 16:49Physician(s):Arnulfo Haley M.D. ([phone])Copy To:Quinton Harrell M.D. Rec. #:[id number]: #[id number] Final Cytologic Diagnosis Cerebrospinal fluid: No malignant cells identified. gr/07/11/2024 Interpretation performed at [facility], [address] [place] [address], License number: [id number].Electronically Signed Out By Derick Lorenz MD Additional Report(s): Flow Cytometry-Surg/BM/NG Date Reported: # Immunophenotyping antibodies tested: CD3, CD4, CD5, CD7, CD8, CD19, CD20, CD45, Sterling, and Lambda. Immunophenotyping Comment: Immunophenotyping has been used in this diagnostic evaluation. This test was developed and its performance characteristics determined by the [facility]. It has not been cleared or approved by the U.S. Food and Drug Administration. The FDA has determined that such clearance or approval is not necessary. This test is used for clinical purposes. It should not be regarded as investigational or for research. This laboratory is certified under the Clinical Laboratory Improvement Amendments of 1988 ( CLIA ) as qualified to perform high-complexity clinical testing. Riaz Edouard MD Clinical History Dementia with behavioral disturbance ([facility]) F03.918, acute change in personality Gross Description Received was 2ml of clear colorless fluid unfixed labeled as Jeffery, CSF . Also received is one cytospin slide from Hematology. Source of Specimen Cerebrospinal fluid Non PET AMBASSADOR ThinPrep, Cytospin Slide Fee Code(s): 1; 08026 VDRL, Spinal Fluid Collection Time: 07/10/24 9:39 AM Result Value Ref Range VDRL, Spinal Fluid Negative Negative Spinal Fluid culture includes gram stain, CSF Collection Time: 07/10/24 9:39 AM Specimen: Cerebrospinal Fluid Result Value Ref Range Gram Stain Result WHITE BLOOD CELLS PRESENT Gram Stain Result NO ORGANISMS SEEN Gram Stain Result ON CONCENTRATED SMEAR Culture NO GROWTH 2 DAYS Meningitis Panel, CSF Collection Time: 07/10/24 9:39 AM Result Value Ref Range Specimen Source CEREBROSPINAL FLUID E Coli K1 Not Detected Not Detected^Not Detected H Influenzae Not Detected Not Detected^Not Detected L Monocytogenes Not Detected Not Detected^Not Detected N Meningitidis Not Detected Not Detected^Not Detected S Agalactiae Not Detected Not Detected^Not Detected S Pneumoniae Not Detected Not Detected^Not Detected CMV Not Detected Not Detected^Not Detected Enterovirus Not Detected Not Detected^Not Detected Herpes Simplex 1 Not Detected Not Detected^Not Detected Herpes Simplex 2 Not Detected Not Detected^Not Detected Herpes Virus 6 Not Detected Not Detected^Not Detected Parechovirus Not Detected Not Detected^Not Detected Varicella Zoster Virus Not Detected Not Detected^Not Detected C Neoformans Not Detected Not Detected^Not Detected Glucose, CSF Collection Time: 07/10/24 9:39 AM Result Value Ref Range Glucose, CSF 66 40 - 70 mg/dL THERAPY Speech Therapy Yes Cognition Current Level of Function - Physical Therapy Mobility/transfers: Ambulation: Activity limitations: Weight-bearing: Current Level of Function - Occupational Therapy Feeding: Grooming: Bathing: Dressing: Toileting: Activity limitations: Assessment/Plan Principal Problem: Dementia with behavioral disturbance ([facility]) Active Problems: Altered mental status Status post colostomy, follow-up exam ([facility]) Acute mental status change patient also was diagnosed with early onset of Alzheimer's dementia vs questionable TBI Debility Gait difficulty Generalized weakness Cognitive deficit-speech for cognitive evaluation. Agitation Discussed rehab options such as inpatient/acute rehab 3 hours of therapy a day with 24 hours of doctors and nurses care vs skilled care nursing center/subacute rehab 1-2 hours of therapy a day vs home care with home care or outpatient therapy. Reviewed Physical and occupational therapy notes, we will order PT OT and speech. We will follow Thank you for the referral. Nito Mirza MD [employer] Work Phone: 07-12-2024 Plan of care note Problem: Safety - Medical Restraint Goal: Remains free of injury from restraints (Restraint for Interference with Hydro[employer] Power Plant Manager) Description: INTERVENTIONS: 1. Determine that other, less restrictive measures have been tried or would not be effective before applying the restraint 2. Evaluate the patient's condition at the time of restraint application 3. Inform patient/family regarding the reason for restraint 4. Q2H: Monitor safety, Vital signs, psychosocial status, signs of injury, skin integrity, circulation, neurovascular status in affected extremities, respiratory status, comfort, nutrition and hydration, hygiene, ROM, elimination needs 5. Doctor will be notified of restraint 6. RN properly applies restraints per physician order Outcome: Progressing Note: Evaluation of progress towards goal: Q2H: Monitor safety, Vital signs, psychosocial status, signs of injury, skin integrity, circulation, neurovascular status in affected extremities, respiratory status, comfort, nutrition and hydration, hygiene, ROM, elimination needs Problem: Safety - Medical Restraint Goal: Free from restraint(s) (Restraint for Interference with Hydrogen Power Plant Manager) Description: INTERVENTIONS: 1. ONCE/SHIFT or MINIMUM Q12H: Assess and document the continuing need for restraints 2. Order is valid for the duration of the episode of care 3. Discontinue at the earliest possible time once the reason for restraints no longer exists 4. Identify and implement measures to help patient regain control 5. Food, fluids, and toilet offered at a minimum of every 2 hours 6. RN modifies the patient's plan of care by entering a problem statement related to safety; individualizes the safety outcome Outcome: Progressing Note: Evaluation of progress towards goal: Q2H: Monitor safety, Vital signs, psychosocial status, signs of injury, skin integrity, circulation, neurovascular status in affected extremities, respiratory status, comfort, nutrition and hydration, hygiene, ROM, elimination needs [employer] 07-12-2024 Progress note Formatting of t his note might be different from the original. BEHAVIORAL RESTRAINTS PROVIDER ONE HOUR [id number] EVALUATION NOTE Noé Jeffery was evaluated on 07/12/24-12:27 AM The patient's immediate situation: Patient became physically aggressive with others, Patient pulling medical devices. The patient's reaction to the intervention(s): Patient failed to respond to verbal redirection, Patient became physically aggressive, Patient became verbally threatening and Patient did not redirect with verbal cues. The patient's medical and behavioral condition was evaluated. The evaluation included a review of: patient history, review of systems and medications. At this time the: patient is psychmotor agitated, threatened staff and has poor impulse control and impaired judgement. Need to continue restraint/seclusion order: Yes Patient needs restraints due to imminent risk of harm to self and others. Jackson Peterson PA-C 07/12/24 0058 [employer] Work Phone: 07-11-2024 Plan of care note Problem: Safety Goal: Patient will be injury free during hospitalization Description: INTERVENTIONS: 1. Assess patient's risk for falls and implement fall prevention plan of care per policy 2. Provide and maintain a safe environment 3. Proper use of double Identifiers 4. Medication administration using the 5 rights 5. Hand hygiene 6. Specimens are labeled at the bedside 7. Instruct patient/ patient passenger relations representative about use of safety devices 8. Include patient/ patient passenger relations representative in decisions related to safety Outcome: Progressing Note: Evaluation of progress towards goal: Patient remains injury and fall free. Safety precautions in place: call light within reach, bed in lowest position, personal belongings within reach, oriented to environment, and non-slip footwear on. Problem: Knowledge Deficit Goal: Patient/patient passenger relations representative demonstrates understanding of disease process, treatment plan, medications, and discharge instructions Description: INTERVENTIONS 1. Complete learning assessment and assess knowledge base 2. Provide teaching at level of understanding 3. Provide teaching via preferred learning method(s) Outcome: Progressing Note: Evaluation of progress towards goal: Patient verbalizes understanding of disease process, treatment plan, medications, and discharge plan. Continue to update with any changes. Problem: Discharge Planning Goal: Discharge to post-acute care, other facility, or home with appropriate resources Description: Patient's goal is: INTERVENTIONS 1. Conduct assessment to determine patient/family and health care team treatment goals, and need for post-acute services based on payer coverage, community resources, and patient preferences, and barriers to discharge 2. Coordinate with Social work, Care Navigation, and Utilization Review to arrange appropriate level of services according to patient's needs based on patient preference and payer coverage in collaboration with the physician and health care team 3. Address psychosocial, clinical, and financial barriers to discharge as identified in assessment in conjunction with the patient/family and health care team 4. Consult appropriate ancillary services (i.e.. PT/OT/ST, etc) as needed 5. Communicate with and update the patient/family, physician, and health care team regarding progress on the discharge plan 6. Identify discharge learning needs (meds, wound care, etc). 7. Arrange for needed discharge transportation as appropriate Outcome: Progressing Note: Evaluation of progress towards goal: Updated spouse and patient on discharge planning, awaiting acceptance. Problem: Neurological Deficit Goal: Neurological status is stable or improving Description: Patient's goal is: INTERVENTIONS 1. Complete Neurological assessment as indicated/ordered 2. Initiate measures to prevent increased intracranial pressure 3. Monitor and assess patient's level of consciousness, motor function, sensory function, and level of assistance needed for ADLs 4. Monitor and report changes from baseline 5. Maintain blood pressure and fluid volume within ordered parameters to optimize cerebral perfusion and minimize risk of hemorrhage 6. Monitor labs and diagnostic tests 7. Administer anti-seizure medications as ordered 8. Maintain airway, patient safety and administer oxygen as ordered 9. Monitor patient for seizure activity, document and report duration and description of seizure to LIP 10. If seizure occurs, turn patient to side and suction secretions as needed 11. Reorient patient post seizure 12. Seizure pads on all 4 side rails 13. Instruct patient/family to notify RN of any seizure activity 14. Instruct patient/family to call for assistance with activity based on assessment 15. Utilize bleeding precautions if thrombolytic given Outcome: Progressing Note: Evaluation of progress towards goal: Assess and report any changes in neurological status. Neurological status and vital signs q4h and with any changes in condition. Problem: Anxiety Goal: Anxiety is at manageable level Description: Patient's goal is: INTERVENTIONS 1. Assess and monitor patient's anxiety level 2. Monitor for signs and symptoms of anxiety both physical and emotional (heart palpitations, chest pain, shortness of breath, headaches, nausea, feeling jumpy, restlessness, irritable, apprehensive) 3. Reorient/orient patient to unit/surroundings 4. Explain treatment plan 5. Explain tests/procedures prior to initiation 6. Encourage participation in care 7. Encourage verbalization of concerns/fears 8. Assess coping mechanisms 9. Assist in developing anxiety-reducing skills 10. Administer complimentary therapies 11. Manage patient's environment 12. Limit or eliminate stimulants such as caffeine and nicotine 13. Collaborate with ancillary departments 14. Include patient/patient passenger relations representative in decisions related to anxiety Outcome: Progressing Note: Evaluation of progress towards goal: Patient has at bedside aiding in assisting with anxiety. Problem: Moderate - High Risk Fall Score Description: Gallegos Fall Score of =/> 25 or indicated by [facility] Assessment Goal: Patient should be free from fall Description: Interventions: 1. [place] to environment 2. Hourly rounds addressing the 4 P's (Pain, Positioning, Possessions, Potty) 3. Clear area of hazards (spills, clutter, electrical cords, unnecessary equipment) 4. Place equipment (bed & TV controls, call light, phone, urinal) within reach 5. Encourage patient to wear glasses and hearing aides as appropriate 6. Maintain bed in lowest position 7. Lock wheels on bed/wheelchair 8. Provide adequate lighting, including night light 9. Assess need for additional bedding, food/fluids, pain med's prior to sleep/routinely 10. Provide gripper slippers or personal non-skid footwear 11. Teach patient and patient passenger relations representative to maintain environment for safety and engage in all aspects of fall prevention program 12. Remind patient to call for help before getting out of bed 13. Initiate bed/chair/exit alarms supportive devices as appropriate, (chair wedge, no-skid floor mat, raised edge mattress, hip protectors) 14. Locate patient bed assignment for optimal visualization 15. Evaluate and identify Safe Patient Handling Equipment needs 16. Provide supervision when out of bed or chair 17. Utilize gait belt as needed to assist with ambulation 18. Place adaptive equipment (cane, walker) within reach 19. Request patient passenger relations representative bring adaptive equipment/mobility aids from home or obtain and provide as needed 20. Consult pharmacy regarding effects of med's affecting mobility, cognition, and alternatives 21. Obtain physician order for PT if risk factors associated with mobility are present 22. Obtain physician order for OT as appropriate 23. Utilize diversional activities 24. Educate patient and patient passenger relations representative how to maintain a safe environment during visitation times (notify nurse prior to leaving bedside) 25. Consider appropriateness of medical or non-medical reception specialist 26. Set up voiding schedule as appropriate (every 2 hours) Outcome: Progressing Note: Evaluation of progress towards goal: Patient remains injury and fall free. Safety precautions in place: call light within reach, bed in lowest position, personal belongings within reach, oriented to environment, and non-slip footwear on. -[facility] [employer] 07-11-2024 Consult note Associated Order (s): IP CONSULT TO PSYCHIATRY PSYCHIATRIC EVALUATION No contraindications for seclusion No contraindications for restraint CHIEF COMPLAINT: Dementia with behavioral disturbance (CMS-HCC) Noé Jeffery is a 58 y.o. male who presents with Dementia with behavioral disturbance (CMS-HCC) .he is HISTORY OF PRESENT ILLNESS: The patient is a 58-year-old [place] male treatment at the [facility] for the patient has a substantial history of dyslipidemia, sleep apnea, type 2 diabetes mellitus, recent diagnosed history of early-onset Alzheimer's dementia, an epileptic disorder in remission, as well as a recent admission to [facility] for altered mental status. 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 When attempting to interview the patient I found him to be pleasantly confused, alert but not oriented to time place or person. He was redirectable by nursing staff, currently was found to be in soft restraints. Did not appear to be responding to internal stimuli. He did exhibit a euthymic mood. Did not want to answer questions but was very polite in his refusal. I did discuss the ongoing circumstances with his family members. After discussion with family members as well as perusal of records I recommend that we continue the current medical management. I do not see a positive efficacy of duloxetine in the current situation but I would suggest that we can add Depakote Sprinkles at a dose of 500 mg twice a day for help with agitation. I would also suggest that the patient be potentially discharged to a memory care unit or assisted that is well-versed in the treatment of memory care issues. At this time the patient for admission to inpatient ambulatory psychiatric unit. PAST PSYCHIATRIC HISTORY: See Above MEDICAL HISTORY: Past Medical History: Diagnosis Date GERD (gastroesophageal reflux disease) High cholesterol Perforated sigmoid colon (CMS-HCC) has a past medical history of GERD (gastroesophageal reflux disease), High cholesterol, and Perforated sigmoid colon (CMS-HCC). Past Surgical History: Procedure Laterality Date ARM EXPLORATION WITH REPAIR LACERATED ULNAR ARTERY Left 11/24/2019 Performed by Skyler Bowen MD at [facility] COLONOSCOPY VISALIA 3YEARS AGO COLOSTOMY CLOSURE Medications Prior to Admission Medication Sig Dispense Refill Last Dose/Taking acetaminophen (TYLENOL EXTRA STRENGTH) 500 mg tablet Take 1 tablet (500 mg total) by mouth every 6 (six) hours as needed for pain. 07/05/2024 benztropine (COGENTIN) 1 mg tablet Take 1 tablet (1 mg total) by mouth in the morning and 1 tablet (1 mg total) before bedtime. 07/05/2024 brexpiprazole (REXULTI) 2 mg tablet Take 1 tablet (2 mg total) by mouth in the morning. 07/05/2024 donepeziL (ARICEPT) 5 mg tablet Take 1 tablet (5 mg total) by mouth nightly. 07/05/2024 FLUoxetine (PROzac) 20 mg capsule Take 1 capsule (20 mg total) by mouth in the morning. 07/05/2024 haloperidoL (HALDOL) 5 mg tablet Take 1 tablet (5 mg total) by mouth in the morning and 1 tablet (5 mg total) at noon and 1 tablet (5 mg total) in the evening and 1 tablet (5 mg total) before bedtime. 07/05/2024 loperamide (IMODIUM A-D) 2 mg tablet Take 1 tablet (2 mg total) by mouth 4 (four) times a day as needed for diarrhea. 07/05/2024 LORazepam (ATIVAN) 1 mg tablet Take 1 tablet (1 mg total) by mouth every 6 (six) hours as needed for anxiety. 07/05/2024 omeprazole (PriLOSEC) 40 mg capsule Take 1 capsule (40 mg total) by mouth in the morning. 07/05/2024 aspirin 81 mg Take 1 tablet (81 mg total) by mouth daily. (Patient not taking: Reported on 05/06/2020 ) 60 tablet 0 FREESTYLE 28 gauge lancets FREESTYLE LITE METER kit FREESTYLE LITE STRIPS strip omeprazole (PriLOSEC) 20 mg capsule Take 20 mg by mouth daily. oxyCODONE-acetaminophen (PERCOCET) 5-325 mg per tablet oxycodone-acetaminophen 5 mg-325 mg tablet simvastatin (ZOCOR) 10 mg tablet Take 10 mg by mouth nightly. Diphenhydramine FAMILY HISTORY: Family History Problem Relation Age of Onset Breast cancer Sister SOCIAL HISTORY: See Above Social History Socioeconomic History Marital status: Tobacco Use Smoking status: Never Smokeless tobacco: Never Substance and Sexual Activity Alcohol use: No Drug use: No Sexual activity: Defer Partners: Female Social Drivers of Health Food Insecurity: Patient Unable To Answer (07/06/2024) Hunger Screening Food Insecurity - Worry: Patient unable to answer Food Insecurity - Inability: Patient unable to answer Transportation Needs: Patient Unable To Answer (07/06/2024) PRAPARE - Transportation Lack of Transportation (Medical): Patient unable to answer Lack of Transportation (Non-Medical): Patient unable to answer Interpersonal Safety: Patient Unable To Answer (07/06/2024) Humiliation, Afraid, Rape, and Kick questionnaire Fear of Current or Ex-Partner: Patient unable to answer Emotionally Abused: Patient unable to answer Physically Abused: Patient unable to answer Sexually Abused: Patient unable to answer Housing Instability: Patient Unable To Answer (07/06/2024) Housing Instability Housing Instability: Patient unable to answer Social History Socioeconomic History Marital status: Spouse name: Not on file Number of children: Not on file Years of education: Not on file Highest education level: Not on file Occupational History Not on file Tobacco Use Smoking status: Never Smokeless tobacco: Never Substance and Sexual Activity Alcohol use: No Drug use: No Sexual activity: Defer Partners: Female Other Topics Concern Not on file Social History Narrative Not on file Social Drivers of Health Financial Resource Strain: Not on file Food Insecurity: Patient Unable To Answer (07/06/2024) Hunger Screening Food Insecurity - Worry: Patient unable to answer Food Insecurity - Inability: Patient unable to answer Transportation Needs: Patient Unable To Answer (07/06/2024) PRAPARE - Transportation Lack of Transportation (Medical): Patient unable to answer Lack of Transportation (Non-Medical): Patient unable to answer Physical Activity: Not on file Stress: Not on file Social Connections: Not on file Interpersonal Safety: Patient Unable To Answer (07/06/2024) Humiliation, Afraid, Rape, and Kick questionnaire Fear of Current or Ex-Partner: Patient unable to answer Emotionally Abused: Patient unable to answer Physically Abused: Patient unable to answer Sexually Abused: Patient unable to answer Housing Instability: Patient Unable To Answer (07/06/2024) Housing Instability Housing Instability: Patient unable to answer BP 150/88 Pulse 101 Temp 36.5 C (97.7 F) (Oral) Resp 20 SpO2 95% MENTAL STATUS EXAMINATION: Diagnosis: Delirium secondary to general medical condition Consider early onset Alzheimer's dementia with delirium Treatment plan: I recommend that we continue the current medications/medical management. After medical clearance I would recommend that the patient be discharged to a memory care unit or a assisted that is well-versed in management of memory impaired patients. At this time the patient does not have the criteria for admission to an inpatient psychiatric unit. Thank you for the consult. I will sign off. Kindly call with questions or comments or if the situation changes. ? This note is created with the assistance of a speech recognition program. While intending to generate a document that actually reflects the content of the visit, the document can still have some errors including those of syntax and sound a like substitutions which may escape proof reading. In such instances, actual meaning can be extrapolated by contextual diversion. Mina Franks MD 07/11/2024 1:11 PM [email or web address] 07-11-2024 Progress note Formatting of t his note might be different from the original. DISCHARGE PLANNING NOTE Per RN during discharge transition rounds, barriers to discharge are: re-consulting psych today, telesitter and soft restraints, MRI and LP completed yesterday, patient behaviors are worse at night, unpredictable and confused. Discharge Plan: [facility] psych stated [facility] was sent a referral and they have declined. Waiting input from psych. Manager [employer] will continue to follow for any discharge needs. - Lesia Caba RN 07/11/24 12:06 PM Late entery: CN met with patient, Kari, and sister Ewa on Tuesday afternoon. and sister want the patient to go to a Traumatic Brain Injury rehab unit. CN began researching TBI Rehab units in the area, reported back to the and sister after finding TBI rehab units in [facility]. Sister asked for me to look in [facility]. and sister do not want any referrals send until they are able to meet with the neurologist again, sister wants to look into the TBI units in the [facility] herself before any referrals are sent. - Lesia Caba RN 07/12/24 8:11 AM [email or web address] 07-11-2024 Progress note Formatting of t his note might be different from the original. Referral sent to [facility] to assess for admission to that center's inpatient psychiatric unit. After a clinical review and screening was completed [facility] assessed patient as inappropriate for treatment at that facility. Will alert care team. - NANCY Martines 07/11/24 10:33 AM [email or web address] [facility] 07-11-2024 Progress note Formatting of t his note might be different from the original. DISCHARGE PLANNING NOTE Updates to [facility] [phone] [employer] [facility] 07-11-2024 Plan of care note Problem: Safety Goal: Patient will be injury free during hospitalization Description: INTERVENTIONS: 1. Assess patient's risk for falls and implement fall prevention plan of care per policy 2. Provide and maintain a safe environment 3. Proper use of double Identifiers 4. Medication administration using the 5 rights 5. Hand hygiene 6. Specimens are labeled at the bedside 7. Instruct patient/ patient passenger relations representative about use of safety devices 8. Include patient/ patient passenger relations representative in decisions related to safety Outcome: Progressing Note: Evaluation of progress towards goal: Patient remains injury free at present time. Safe environment provided and maintained. Medications administered using 5 rights. Problem: Knowledge Deficit Goal: Patient/patient passenger relations representative demonstrates understanding of disease process, treatment plan, medications, and discharge instructions Description: INTERVENTIONS 1. Complete learning assessment and assess knowledge base 2. Provide teaching at level of understanding 3. Provide teaching via preferred learning method(s) Outcome: Progressing Note: Evaluation of progress towards goal: Daily plan of care reviewed with patient. Patient demonstrates an understanding of plan, needs reinforcement. Will continue to monitor for any questions/concerns patient may have. Problem: Discharge Planning Goal: Discharge to post-acute care, other facility, or home with appropriate resources Description: Patient's goal is: INTERVENTIONS 1. Conduct assessment to determine patient/family and health care team treatment goals, and need for post-acute services based on payer coverage, community resources, and patient preferences, and barriers to discharge 2. Coordinate with Social work, Care Navigation, and Utilization Review to arrange appropriate level of services according to patient's needs based on patient preference and payer coverage in collaboration with the physician and health care team 3. Address psychosocial, clinical, and financial barriers to discharge as identified in assessment in conjunction with the patient/family and health care team 4. Consult appropriate ancillary services (i.e.. PT/OT/ST, etc) as needed 5. Communicate with and update the patient/family, physician, and health care team regarding progress on the discharge plan 6. Identify discharge learning needs (meds, wound care, etc). 7. Arrange for needed discharge transportation as appropriate Outcome: Progressing Note: Evaluation of progress towards goal: Patient is being followed by care blessing, and psych Problem: Neurological Deficit Goal: Neurological status is stable or improving Description: Patient's goal is: INTERVENTIONS 1. Complete Neurological assessment as indicated/ordered 2. Initiate measures to prevent increased intracranial pressure 3. Monitor and assess patient's level of consciousness, motor function, sensory function, and level of assistance needed for ADLs 4. Monitor and report changes from baseline 5. Maintain blood pressure and fluid volume within ordered parameters to optimize cerebral perfusion and minimize risk of hemorrhage 6. Monitor labs and diagnostic tests 7. Administer anti-seizure medications as ordered 8. Maintain airway, patient safety and administer oxygen as ordered 9. Monitor patient for seizure activity, document and report duration and description of seizure to LIP 10. If seizure occurs, turn patient to side and suction secretions as needed 11. Reorient patient post seizure 12. Seizure pads on all 4 side rails 13. Instruct patient/family to notify RN of any seizure activity 14. Instruct patient/family to call for assistance with activity based on assessment 15. Utilize bleeding precautions if thrombolytic given Outcome: Progressing Note: Evaluation of progress towards goal: Patient oriented to self, labile, irritable, impulsive, q4 neuro checks Problem: Anxiety Goal: Anxiety is at manageable level Description: Patient's goal is: INTERVENTIONS 1. Assess and monitor patient's anxiety level 2. Monitor for signs and symptoms of anxiety both physical and emotional (heart palpitations, chest pain, shortness of breath, headaches, nausea, feeling jumpy, restlessness, irritable, apprehensive) 3. Reorient/orient patient to unit/surroundings 4. Explain treatment plan 5. Explain tests/procedures prior to initiation 6. Encourage participation in care 7. Encourage verbalization of concerns/fears 8. Assess coping mechanisms 9. Assist in developing anxiety-reducing skills 10. Administer complimentary therapies 11. Manage patient's environment 12. Limit or eliminate stimulants such as caffeine and nicotine 13. Collaborate with ancillary departments 14. Include patient/patient passenger relations representative in decisions related to anxiety Outcome: Progressing Note: Evaluation of progress towards goal: Patient has at bedside assisting with anxiety. Problem: Moderate - High Risk Fall Score Description: Gallegos Fall Score of =/> [address] [facility] Assessment Goal: Patient should be free from fall Description: Interventions: 1. [place] to environment 2. Hourly rounds addressing the 4 P's (Pain, Positioning, Possessions, Potty) 3. Clear area of hazards (spills, clutter, electrical cords, unnecessary equipment) 4. Place equipment (bed & TV controls, call light, phone, urinal) within reach 5. Encourage patient to wear glasses and hearing aides as appropriate 6. Maintain bed in lowest position 7. Lock wheels on bed/wheelchair 8. Provide adequate lighting, including night light 9. Assess need for additional bedding, food/fluids, pain med's prior to sleep/routinely 10. Provide gripper slippers or personal non-skid footwear 11. Teach patient and patient passenger relations representative to maintain environment for safety and engage in all aspects of fall prevention program 12. Remind patient to call for help before getting out of bed 13. Initiate bed/chair/exit alarms supportive devices as appropriate, (chair wedge, no-skid floor mat, raised edge mattress, hip protectors) 14. Locate patient bed assignment for optimal visualization 15. Evaluate and identify Safe Patient Handling Equipment needs 16. Provide supervision when out of bed or chair 17. Utilize gait belt as needed to assist with ambulation 18. Place adaptive equipment (cane, walker) within reach 19. Request patient passenger relations representative bring adaptive equipment/mobility aids from home or obtain and provide as needed 20. Consult pharmacy regarding effects of med's affecting mobility, cognition, and alternatives 21. Obtain physician order for PT if risk factors associated with mobility are present 22. Obtain physician order for OT as appropriate 23. Utilize diversional activities 24. Educate patient and patient passenger relations representative how to maintain a safe environment during visitation times (notify nurse prior to leaving bedside) 25. Consider appropriateness of medical or non-medical reception specialist 26. Set up voiding schedule as appropriate (every 2 hours) Outcome: Progressing Note: Evaluation of progress towards goal: Patient currently free from falls, up standby. [facility] 07-11-2024 Plan of care note Problem: Safety - Violent/Self-Destructive Restraint Goal: Appropriate for restraints Description: INTERVENTIONS 1. Assess and document the patient's behavior or symptoms that indicate continued need for restraint, notify LIP and obtain renewal orders as indicated --Q4H for patient age 18 or older --Q2H for patients age 9 through 17 --Q1H for patients age 8 and under 2. Verify that a physician, other LIP, or trained registered nurse has performed a fact to face examination within one hour of restraint application 3. Identify and implement measures to help patient regain control, assess readiness for release and initiate progressive release per policy Note: Evaluation of progress towards goal: Patient previous in non-violent restraints, became very aggressive and verbally abusive, not able to redirect him verbally. Problem: Safety - Medical Restraint Goal: Remains free of injury from restraints (Restraint for Interference with [employer] Manager) Description: INTERVENTIONS: 1. Determine that other, less restrictive measures have been tried or would not be effective before applying the restraint 2. Evaluate the patient's condition at the time of restraint application 3. Inform patient/family regarding the reason for restraint 4. Q2H: Monitor safety, Vital signs, psychosocial status, signs of injury, skin integrity, circulation, neurovascular status in affected extremities, respiratory status, comfort, nutrition and hydration, hygiene, ROM, elimination needs 5. Doctor will be notified of restraint 6. RN properly applies restraints per physician order 07/11/2024108 by MARCI Barrow Outcome: Completed Note: Evaluation of progress towards goal: 07/10/20242235 by MARCI Barrow Outcome: Progressing Note: Evaluation of progress towards goal: Q2H: Monitor safety, Vital signs, psychosocial status, signs of injury, skin integrity, circulation, neurovascular status in affected extremities, respiratory status, comfort, nutrition and hydration, hygiene, ROM, elimination needs Goal: Free from restraint(s) (Restraint for Interference with [employer] Power Plant Manager) Description: INTERVENTIONS: 1. ONCE/SHIFT or MINIMUM Q12H: Assess and document the continuing need for restraints 2. Order is valid for the duration of the episode of care 3. Discontinue at the earliest possible time once the reason for restraints no longer exists 4. Identify and implement measures to help patient regain control 5. Food, fluids, and toilet offered at a minimum of every 2 hours 6. RN modifies the patient's plan of care by entering a problem statement related to safety; individualizes the safety outcome 07/11/2024108 by MARCI Barrow Outcome: Completed Note: Evaluation of progress towards goal: 07/10/20242235 by MARCI Barrow Outcome: Progressing Note: Evaluation of progress towards goal: Q2H: Monitor safety, Vital signs, psychosocial status, signs of injury, skin integrity, circulation, neurovascular status in affected extremities, respiratory status, comfort, nutrition and hydration, hygiene, ROM, elimination needs [facility] 07-10-2024 Progress note Formatting of t his note might be different from the original. BEHAVIORAL RESTRAINTS PROVIDER ONE HOUR [id number] EVALUATION NOTE Noé Jeffery was evaluated on 07/10/2024 at 2350. Called to bedside after patient starting to become aggressive and trying to get out of soft wrists placed during day shift. Nursing staff escalated to violent restraints as patient got up on his hands in knees in bed. Security at bedside to help reposition patient appropriately in bed. Patient verbally hostile, not answering questions appropriately. The patient's immediate situation: Patient became physically aggressive with others, Patient made verbal threats to others, Patient pulling medical devices. The patient's reaction to the intervention(s): Patient failed to respond to verbal redirection, Patient became physically aggressive, Patient became verbally threatening and Patient did not redirect with verbal cues. The patient's medical and behavioral condition was evaluated. The evaluation included a review of: patient history, review of systems and medications. At this time the: patient is psychmotor agitated, threatened staff and has poor impulse control and impaired judgement. Need to continue restraint/seclusion order: Yes Patient needs restraints due to imminent risk of harm to self and others. Jackson Peterson PA-C 07/11/24 0036 -[facility] [employer] [facility] 07-10-2024 Plan of care note Problem: Safety Goal: Patient will be injury free during hospitalization Description: INTERVENTIONS: 1. Assess patient's risk for falls and implement fall prevention plan of care per policy 2. Provide and maintain a safe environment 3. Proper use of double Identifiers 4. Medication administration using the 5 rights 5. Hand hygiene 6. Specimens are labeled at the bedside 7. Instruct patient/ patient passenger relations representative about use of safety devices 8. Include patient/ patient passenger relations representative in decisions related to safety Outcome: Progressing Note: Evaluation of progress towards goal: Patient remains injury and fall free. Safety precautions in place: call light within reach, bed in lowest position, personal belongings within reach, oriented to environment, and non-slip footwear on. Problem: Infection Goal: Absence of infection during hospitalization Description: INTERVENTIONS 1. Assess and monitor for signs and symptoms of infection. 2. Monitor lab/diagnostic results. 3. Monitor all insertion sites i.e., indwelling lines, tubes and drains. 4. Monitor endotracheal (as able) and nasal secretions for changes in amount and color. 5. Administer medications as ordered. 6. Instruct and encourage patient and family to use good hand hygiene technique. 7. Identify and instruct patient/patient passenger relations representative in use of appropriate isolation precautions for identified infection/symptoms. 8. Provide and discuss with patient/patient passenger relations representative on educational MDRO sheet. 9. Encourage and monitor nutritional status daily and consult e commerce developer if indicated. 10. Implement neutropenic guidelines as needed. Outcome: Progressing Note: Evaluation of progress towards goal: Patient remains free of any signs of infection. Signs and symptoms being monitor such as fevers, chills, warm/red areas. Problem: Knowledge Deficit Goal: Patient/patient passenger relations representative demonstrates understanding of disease process, treatment plan, medications, and discharge instructions Description: INTERVENTIONS 1. Complete learning assessment and assess knowledge base 2. Provide teaching at level of understanding 3. Provide teaching via preferred learning method(s) Outcome: Progressing Note: Evaluation of progress towards goal: Patient verbalizes understanding of disease process, treatment plan, medications, and discharge plan. Continue to update with any changes. Problem: Discharge Planning Goal: Discharge to post-acute care, other facility, or home with appropriate resources Description: Patient's goal is: INTERVENTIONS 1. Conduct assessment to determine patient/family and health care team treatment goals, and need for post-acute services based on payer coverage, community resources, and patient preferences, and barriers to discharge 2. Coordinate with Social work, Care Navigation, and Utilization Review to arrange appropriate level of services according to patient's needs based on patient preference and payer coverage in collaboration with the physician and health care team 3. Address psychosocial, clinical, and financial barriers to discharge as identified in assessment in conjunction with the patient/family and health care team 4. Consult appropriate ancillary services (i.e.. PT/OT/ST, etc) as needed 5. Communicate with and update the patient/family, physician, and health care team regarding progress on the discharge plan 6. Identify discharge learning needs (meds, wound care, etc). 7. Arrange for needed discharge transportation as appropriate Outcome: Progressing Note: Evaluation of progress towards goal: Patient verbalizes discharge plan. Will continue to update with any changes. Problem: Neurological Deficit Goal: Neurological status is stable or improving Description: Patient's goal is: INTERVENTIONS 1. Complete Neurological assessment as indicated/ordered 2. Initiate measures to prevent increased intracranial pressure 3. Monitor and assess patient's level of consciousness, motor function, sensory function, and level of assistance needed for ADLs 4. Monitor and report changes from baseline 5. Maintain blood pressure and fluid volume within ordered parameters to optimize cerebral perfusion and minimize risk of hemorrhage 6. Monitor labs and diagnostic tests 7. Administer anti-seizure medications as ordered 8. Maintain airway, patient safety and administer oxygen as ordered 9. Monitor patient for seizure activity, document and report duration and description of seizure to LIP 10. If seizure occurs, turn patient to side and suction secretions as needed 11. Reorient patient post seizure 12. Seizure pads on all 4 side rails 13. Instruct patient/family to notify RN of any seizure activity 14. Instruct patient/family to call for assistance with activity based on assessment 15. Utilize bleeding precautions if thrombolytic given Outcome: Progressing Note: Evaluation of progress towards goal: Assess and report any changes in neurological status. Neurological status and vital signs q4h and with any changes in condition. Problem: Anxiety Goal: Anxiety is at manageable level Description: Patient's goal is: INTERVENTIONS 1. Assess and monitor patient's anxiety level 2. Monitor for signs and symptoms of anxiety both physical and emotional (heart palpitations, chest pain, shortness of breath, headaches, nausea, feeling jumpy, restlessness, irritable, apprehensive) 3. Reorient/orient patient to unit/surroundings 4. Explain treatment plan 5. Explain tests/procedures prior to initiation 6. Encourage participation in care 7. Encourage verbalization of concerns/fears 8. Assess coping mechanisms 9. Assist in developing anxiety-reducing skills 10. Administer complimentary therapies 11. Manage patient's environment 12. Limit or eliminate stimulants such as caffeine and nicotine 13. Collaborate with ancillary departments 14. Include patient/patient passenger relations representative in decisions related to anxiety Outcome: Progressing Note: Evaluation of progress towards goal: Patient's anxiety is at manageable level. Problem: Safety - Medical Restraint Goal: Remains free of injury from restraints (Restraint for Interference with Hydrogen Power Plant Manager) Description: INTERVENTIONS: 1. Determine that other, less restrictive measures have been tried or would not be effective before applying the restraint 2. Evaluate the patient's condition at the time of restraint application 3. Inform patient/family regarding the reason for restraint 4. Q2H: Monitor safety, Vital signs, psychosocial status, signs of injury, skin integrity, circulation, neurovascular status in affected extremities, respiratory status, comfort, nutrition and hydration, hygiene, ROM, elimination needs 5. Doctor will be notified of restraint 6. RN properly applies restraints per physician order Outcome: Progressing Note: Evaluation of progress towards goal: Q2H: Monitor safety, Vital signs, psychosocial status, signs of injury, skin integrity, circulation, neurovascular status in affected extremities, respiratory status, comfort, nutrition and hydration, hygiene, ROM, elimination needs Goal: Free from restraint(s) (Restraint for Interference with Hydrogen Power Plant Manager) Description: INTERVENTIONS: 1. ONCE/SHIFT or MINIMUM Q12H: Assess and document the continuing need for restraints 2. Order is valid for the duration of the episode of care 3. Discontinue at the earliest possible time once the reason for restraints no longer exists 4. Identify and implement measures to help patient regain control 5. Food, fluids, and toilet offered at a minimum of every 2 hours 6. RN modifies the patient's plan of care by entering a problem statement related to safety; individualizes the safety outcome Outcome: Progressing Note: Evaluation of progress towards goal: Q2H: Monitor safety, Vital signs, psychosocial status, signs of injury, skin integrity, circulation, neurovascular status in affected extremities, respiratory status, comfort, nutrition and hydration, hygiene, ROM, elimination needs Problem: Multi-Drug Resistant Organism / Rule-Out Infection Prevention Goal: Prevent transmission of infection Description: INTERVENTIONS 1. Place patient in private room or in room with patient with same disease 2. Discard single-use items 3. Clean reusable equipment between patients 4. Wear gloves for direct and indirect contact with patient or contaminants 5. Change gloves between tasks and procedures 6. Wash hands before and after caring for each patient 7. Wear appropriate personal protective equipment in relation to the indicated isolation type 8. Place appropriate isolation signage on patient's door 9. Provide patient/ patient passenger relations representative with isolation education. Outcome: Progressing Note: Evaluation of progress towards goal: Discard single-use items. Clean reusable equipment. Wear gloves for direct and indirect patient care. Wash hands before and after care of patient. Problem: Moderate - High Risk Fall Score Description: Gallegos Fall Score of =/> [address] [facility] Assessment Goal: Patient should be free from fall Description: Interventions: 1. [place] to environment 2. Hourly rounds addressing the 4 P's (Pain, Positioning, Possessions, Potty) 3. Clear area of hazards (spills, clutter, electrical cords, unnecessary equipment) 4. Place equipment (bed & TV controls, call light, phone, urinal) within reach 5. Encourage patient to wear glasses and hearing aides as appropriate 6. Maintain bed in lowest position 7. Lock wheels on bed/wheelchair 8. Provide adequate lighting, including night light 9. Assess need for additional bedding, food/fluids, pain med's prior to sleep/routinely 10. Provide gripper slippers or personal non-skid footwear 11. Teach patient and patient passenger relations representative to maintain environment for safety and engage in all aspects of fall prevention program 12. Remind patient to call for help before getting out of bed 13. Initiate bed/chair/exit alarms supportive devices as appropriate, (chair wedge, no-skid floor mat, raised edge mattress, hip protectors) 14. Locate patient bed assignment for optimal visualization 15. Evaluate and identify Safe Patient Handling Equipment needs 16. Provide supervision when out of bed or chair 17. Utilize gait belt as needed to assist with ambulation 18. Place adaptive equipment (cane, walker) within reach 19. Request patient passenger relations representative bring adaptive equipment/mobility aids from home or obtain and provide as needed 20. Consult pharmacy regarding effects of med's affecting mobility, cognition, and alternatives 21. Obtain physician order for PT if risk factors associated with mobility are present 22. Obtain physician order for OT as appropriate 23. Utilize diversional activities 24. Educate patient and patient passenger relations representative how to maintain a safe environment during visitation times (notify nurse prior to leaving bedside) 25. Consider appropriateness of medical or non-medical reception specialist 26. Set up voiding schedule as appropriate (every 2 hours) Outcome: Progressing Note: Evaluation of progress towards goal: Patient remains injury and fall free. Safety precautions in place: call light within reach, bed in lowest position, personal belongings within reach, oriented to environment, and non-slip footwear on. [facility] [employer] [facility] 07-10-2024 Plan of care note Problem: Safety Goal: Patient will be injury free during hospitalization Description: INTERVENTIONS: 1. Assess patient's risk for falls and implement fall prevention plan of care per policy 2. Provide and maintain a safe environment 3. Proper use of double Identifiers 4. Medication administration using the 5 rights 5. Hand hygiene 6. Specimens are labeled at the bedside 7. Instruct patient/ patient passenger relations representative about use of safety devices 8. Include patient/ patient passenger relations representative in decisions related to safety Outcome: Progressing Note: Evaluation of progress towards goal: safety maintained & call light in reach Problem: Infection Goal: Absence of infection during hospitalization Description: INTERVENTIONS 1. Assess and monitor for signs and symptoms of infection. 2. Monitor lab/diagnostic results. 3. Monitor all insertion sites i.e., indwelling lines, tubes and drains. 4. Monitor endotracheal (as able) and nasal secretions for changes in amount and color. 5. Administer medications as ordered. 6. Instruct and encourage patient and family to use good hand hygiene technique. 7. Identify and instruct patient/patient passenger relations representative in use of appropriate isolation precautions for identified infection/symptoms. 8. Provide and discuss with patient/patient passenger relations representative on educational MDRO sheet. 9. Encourage and monitor nutritional status daily and consult e commerce developer if indicated. 10. Implement neutropenic guidelines as needed. Outcome: Progressing Note: Evaluation of progress towards goal: patient remains afebrile at this time Problem: Knowledge Deficit Goal: Patient/patient passenger relations representative demonstrates understanding of disease process, treatment plan, medications, and discharge instructions Description: INTERVENTIONS 1. Complete learning assessment and assess knowledge base 2. Provide teaching at level of understanding 3. Provide teaching via preferred learning method(s) Outcome: Progressing Note: Evaluation of progress towards goal: POC discussed/updated & Qs addressed. Problem: Discharge Planning Goal: Discharge to post-acute care, other facility, or home with appropriate resources Description: Patient's goal is: INTERVENTIONS 1. Conduct assessment to determine patient/family and health care team treatment goals, and need for post-acute services based on payer coverage, community resources, and patient preferences, and barriers to discharge 2. Coordinate with Social work, Care Navigation, and Utilization Review to arrange appropriate level of services according to patient's needs based on patient preference and payer coverage in collaboration with the physician and health care team 3. Address psychosocial, clinical, and financial barriers to discharge as identified in assessment in conjunction with the patient/family and health care team 4. Consult appropriate ancillary services (i.e.. PT/OT/ST, etc) as needed 5. Communicate with and update the patient/family, physician, and health care team regarding progress on the discharge plan 6. Identify discharge learning needs (meds, wound care, etc). 7. Arrange for needed discharge transportation as appropriate Outcome: Progressing Note: Evaluation of progress towards goal: d/c plan updated & Qs addressed Problem: Neurological Deficit Goal: Neurological status is stable or improving Description: Patient's goal is: INTERVENTIONS 1. Complete Neurological assessment as indicated/ordered 2. Initiate measures to prevent increased intracranial pressure 3. Monitor and assess patient's level of consciousness, motor function, sensory function, and level of assistance needed for ADLs 4. Monitor and report changes from baseline 5. Maintain blood pressure and fluid volume within ordered parameters to optimize cerebral perfusion and minimize risk of hemorrhage 6. Monitor labs and diagnostic tests 7. Administer anti-seizure medications as ordered 8. Maintain airway, patient safety and administer oxygen as ordered 9. Monitor patient for seizure activity, document and report duration and description of seizure to LIP 10. If seizure occurs, turn patient to side and suction secretions as needed 11. Reorient patient post seizure 12. Seizure pads on all 4 side rails 13. Instruct patient/family to notify RN of any seizure activity 14. Instruct patient/family to call for assistance with activity based on assessment 15. Utilize bleeding precautions if thrombolytic given Outcome: Progressing Note: Evaluation of progress towards goal: Neuro Fx remains unstable and laBILE AT THIS TIME Problem: Anxiety Goal: Anxiety is at manageable level Description: Patient's goal is: INTERVENTIONS 1. Assess and monitor patient's anxiety level 2. Monitor for signs and symptoms of anxiety both physical and emotional (heart palpitations, chest pain, shortness of breath, headaches, nausea, feeling jumpy, restlessness, irritable, apprehensive) 3. Reorient/orient patient to unit/surroundings 4. Explain treatment plan 5. Explain tests/procedures prior to initiation 6. Encourage participation in care 7. Encourage verbalization of concerns/fears 8. Assess coping mechanisms 9. Assist in developing anxiety-reducing skills 10. Administer complimentary therapies 11. Manage patient's environment 12. Limit or eliminate stimulants such as caffeine and nicotine 13. Collaborate with ancillary departments 14. Include patient/patient passenger relations representative in decisions related to anxiety Outcome: Progressing Note: Evaluation of progress towards goal: discussed w/ patient coping strategies & dietary changes that may aid in controlling stress & anxiety. Problem: Safety - Medical Restraint Goal: Remains free of injury from restraints (Restraint for Interference with Hydrogen Power Plant Manager) Description: INTERVENTIONS: 1. Determine that other, less restrictive measures have been tried or would not be effective before applying the restraint 2. Evaluate the patient's condition at the time of restraint application 3. Inform patient/family regarding the reason for restraint 4. Q2H: Monitor safety, Vital signs, psychosocial status, signs of injury, skin integrity, circulation, neurovascular status in affected extremities, respiratory status, comfort, nutrition and hydration, hygiene, ROM, elimination needs 5. Doctor will be notified of restraint 6. RN properly applies restraints per physician order Outcome: Progressing Note: Evaluation of progress towards goal: IN PLACE TO KEEP PATIENT FROM REMOVING LINES Goal: Free from restraint(s) (Restraint for Interference with Hydrogen Power Plant Manager) Description: INTERVENTIONS: 1. ONCE/SHIFT or MINIMUM Q12H: Assess and document the continuing need for restraints 2. Order is valid for the duration of the episode of care 3. Discontinue at the earliest possible time once the reason for restraints no longer exists 4. Identify and implement measures to help patient regain control 5. Food, fluids, and toilet offered at a minimum of every 2 hours 6. RN modifies the patient's plan of care by entering a problem statement related to safety; individualizes the safety outcome Outcome: Progressing Note: Evaluation of progress towards goal: IN PLACE TO KEEP PATIENT FROM REMOVING LINES Problem: Multi-Drug Resistant Organism / Rule-Out Infection Prevention Goal: Prevent transmission of infection Description: INTERVENTIONS 1. Place patient in private room or in room with patient with same disease 2. Discard single-use items 3. Clean reusable equipment between patients 4. Wear gloves for direct and indirect contact with patient or contaminants 5. Change gloves between tasks and procedures 6. Wash hands before and after caring for each patient 7. Wear appropriate personal protective equipment in relation to the indicated isolation type 8. Place appropriate isolation signage on patient's door 9. Provide patient/ patient passenger relations representative with isolation education. Outcome: Progressing Note: Evaluation of progress towards goal: patient remains afebrile at this time Problem: Moderate - High Risk Fall Score Description: Gallegos Fall Score of =/> [address] [facility] Assessment Goal: Patient should be free from fall Description: Interventions: 1. [place] to environment 2. Hourly rounds addressing the 4 P's (Pain, Positioning, Possessions, Potty) 3. Clear area of hazards (spills, clutter, electrical cords, unnecessary equipment) 4. Place equipment (bed & TV controls, call light, phone, urinal) within reach 5. Encourage patient to wear glasses and hearing aides as appropriate 6. Maintain bed in lowest position 7. Lock wheels on bed/wheelchair 8. Provide adequate lighting, including night light 9. Assess need for additional bedding, food/fluids, pain med's prior to sleep/routinely 10. Provide gripper slippers or personal non-skid footwear 11. Teach patient and patient passenger relations representative to maintain environment for safety and engage in all aspects of fall prevention program 12. Remind patient to call for help before getting out of bed 13. Initiate bed/chair/exit alarms supportive devices as appropriate, (chair wedge, no-skid floor mat, raised edge mattress, hip protectors) 14. Locate patient bed assignment for optimal visualization 15. Evaluate and identify Safe Patient Handling Equipment needs 16. Provide supervision when out of bed or chair 17. Utilize gait belt as needed to assist with ambulation 18. Place adaptive equipment (cane, walker) within reach 19. Request patient passenger relations representative bring adaptive equipment/mobility aids from home or obtain and provide as needed 20. Consult pharmacy regarding effects of med's affecting mobility, cognition, and alternatives 21. Obtain physician order for PT if risk factors associated with mobility are present 22. Obtain physician order for OT as appropriate 23. Utilize diversional activities 24. Educate patient and patient passenger relations representative how to maintain a safe environment during visitation times (notify nurse prior to leaving bedside) 25. Consider appropriateness of medical or non-medical reception specialist 26. Set up voiding schedule as appropriate (every 2 hours) Outcome: Progressing Note: Evaluation of progress towards goal: patient remains free of injury & verbalizes understanding of fall prevention; call light in reach -[facility] [email or web address] 07-10-2024 Progress note Formatting of t his note might be different from the original. DISCHARGE PLANNING NOTE Per RN during discharge transition rounds, barriers to discharge are: MRI with sedation today, LP with sedation today, restraints removed after procedures today, assess as needed for restraints, re-consult psych. Discharge Plan: [employer] [facility] discussed case with colin Solorio Manager [employer] will continue to follow for any discharge needs. - Lesia Caba RN 07/10/24 3:16 PM [facility] 07-10-2024 Plan of care note 07/10/24 1145: Evaluated patient after his procedures, he is calm at this time and currently not threat to himself or staff therefore we will discontinue violent restraints. He is though pulling at his lines and IV so will place bilateral soft wrist restraints. We will re-evaluate as needed Nichol Heath MD [facility] 07-10-2024 Nurse Note Patient still off unit at this time 11:58 s/p sedated MRI & LP procedure. Per neurologist, Dr Johnson, patient needs to remain flat 1-2hrs & may have regular diet. Roll Forming Machine Operator awaiting patient return to unit & per report 1:1 sitter remains at patient bedside. [facility] 07-10-2024 Procedure note Associated Ord er(s): Lumbar Puncture Post-Procedure Diagnose(s): Dementia with behavioral disturbance ([facility]) PROCEDURE: Lumbar Puncture Date/Time: 07/10/2024 9:58 AM Performed by: Arnulfo Haley MD Authorized by: Arnulfo Haley MD Consent: Verbal consent obtained. Written consent obtained. Risks and benefits: risks, benefits and alternatives were discussed Consent given by: spouse Relevant documents: relevant documents present and verified Test results: test results available and properly labeled Site marked: the operative site was marked Imaging studies: imaging studies available Patient identity confirmed: arm band Time out: Immediately prior to procedure a time out was called to verify the correct patient, procedure, equipment, bilingual patient support caseworker and site/side marked as required. Anesthesia: local infiltration Anesthesia: Local Anesthetic: lidocaine 1% without epinephrine Sedation: Patient sedated: yes Lumbar space: L3-L4 interspace Patient's position: left lateral decubitus Opening pressure: 12 cm H2O Fluid appearance: clear Tubes of fluid: 4 Total volume: 17.5 ml Post-procedure: pressure dressing applied and adhesive bandage applied Procedure was completed Complications: none Arnulfo Haley MD PGY2 Neurology [facility] Cosigned by Zach Nails MD at 07/11/2024 12:41 AM EST Associated attestation - Zach Nails MD - 07/11/2024 12:41 AM EST Zach Nails MD [employer] [place] Dept of Neurology [facility] 07-10-2024 Procedure note Associated Ord er(s): Lumbar Puncture Post-Procedure Diagnose(s): Dementia with behavioral disturbance ([facility]) PROCEDURE: Lumbar Puncture Date/Time: 07/10/2024 9:58 AM Performed by: Arnulfo Haley MD Authorized by: Arnulfo Haley MD Consent: Verbal consent obtained. Written consent obtained. Risks and benefits: risks, benefits and alternatives were discussed Consent given by: spouse Relevant documents: relevant documents present and verified Test results: test results available and properly labeled Site marked: the operative site was marked Imaging studies: imaging studies available Patient identity confirmed: arm band Time out: Immediately prior to procedure a time out was called to verify the correct patient, procedure, equipment, bilingual patient support caseworker and site/side marked as required. Anesthesia: local infiltration Anesthesia: Local Anesthetic: lidocaine 1% without epinephrine Sedation: Patient sedated: yes Lumbar space: L3-L4 interspace Patient's position: left lateral decubitus Opening pressure: 12 cm H2O Fluid appearance: clear Tubes of fluid: 4 Total volume: 17.5 ml Post-procedure: pressure dressing applied and adhesive bandage applied Procedure was completed Complications: none Arnulfo Haley MD PGY2 Neurology [facility] Cosigned by Zach Nails MD at 07/11/2024 12:41 AM EST Associated attestation - Zach Nails MD - 07/11/2024 12:41 AM EST Zach Nails MD [employer] [place] Dept of Neurology [facility] documented in this encounter [facility] 07-10-2024 Nurse Note SPECIMENS X4 WERE COLLECTED, PROCESSED, AND SENT TO LAB BY DR. ARNULFO HALEY. [facility] 07-10-2024 Plan of care note Problem: Safety Goal: Patient will be injury free during hospitalization Description: INTERVENTIONS: 1. Assess patient's risk for falls and implement fall prevention plan of care per policy 2. Provide and maintain a safe environment 3. Proper use of double Identifiers 4. Medication administration using the 5 rights 5. Hand hygiene 6. Specimens are labeled at the bedside 7. Instruct patient/ patient passenger relations representative about use of safety devices 8. Include patient/ patient passenger relations representative in decisions related to safety Outcome: Progressing Note: Evaluation of progress towards goal: Proper identifiers used with patient care and medication administration. Remains free of injury during shift Problem: Infection Goal: Absence of infection during hospitalization Description: INTERVENTIONS 1. Assess and monitor for signs and symptoms of infection. 2. Monitor lab/diagnostic results. 3. Monitor all insertion sites i.e., indwelling lines, tubes and drains. 4. Monitor endotracheal (as able) and nasal secretions for changes in amount and color. 5. Administer medications as ordered. 6. Instruct and encourage patient and family to use good hand hygiene technique. 7. Identify and instruct patient/patient passenger relations representative in use of appropriate isolation precautions for identified infection/symptoms. 8. Provide and discuss with patient/patient passenger relations representative on educational MDRO sheet. 9. Encourage and monitor nutritional status daily and consult e commerce developer if indicated. 10. Implement neutropenic guidelines as needed. Outcome: Progressing Note: Evaluation of progress towards goal: Skin integrity remains in stable condition; remains w/o ss of infection, fever, pain, or increased discomfort. Problem: Knowledge Deficit Goal: Patient/patient passenger relations representative demonstrates understanding of disease process, treatment plan, medications, and discharge instructions Description: INTERVENTIONS 1. Complete learning assessment and assess knowledge base 2. Provide teaching at level of understanding 3. Provide teaching via preferred learning method(s) Outcome: Progressing Note: Evaluation of progress towards goal: Verbalizes understanding of current treatment plan as educated. Will continue to educate for understanding. Problem: Discharge Planning Goal: Discharge to post-acute care, other facility, or home with appropriate resources Description: Patient's goal is: INTERVENTIONS 1. Conduct assessment to determine patient/family and health care team treatment goals, and need for post-acute services based on payer coverage, community resources, and patient preferences, and barriers to discharge 2. Coordinate with Social work, Care Navigation, and Utilization Review to arrange appropriate level of services according to patient's needs based on patient preference and payer coverage in collaboration with the physician and health care team 3. Address psychosocial, clinical, and financial barriers to discharge as identified in assessment in conjunction with the patient/family and health care team 4. Consult appropriate ancillary services (i.e.. PT/OT/ST, etc) as needed 5. Communicate with and update the patient/family, physician, and health care team regarding progress on the discharge plan 6. Identify discharge learning needs (meds, wound care, etc). 7. Arrange for needed discharge transportation as appropriate Outcome: Progressing Note: Evaluation of progress towards goal: Discharge planning in process. Will continue to monitor for discharge needs. Problem: Low Risk Fall Score Description: Gallegos Fall Score of 0 - [address] [facility] Assessment Goal: Patient should be free from fall Description: Interventions: 1. [place] to environment 2. Hourly rounds addressing the 4 P's (Pain, Positioning, Possessions, Potty) 3. Clear area of hazards (spills, clutter, electrical cords, unnecessary equipment) 4. Place equipment (bed & TV controls, call light, phone, urinal) within reach 5. Encourage patient to wear glasses and hearing aides as appropriate 6. Maintain bed in lowest position 7. Lock wheels on bed/wheelchair 8. Provide adequate lighting, including night light 9. Assess need for additional bedding, food/fluids, pain med's prior to sleep/routinely 10. Provide gripper slippers or personal non-skid footwear 11. Teach patient and patient passenger relations representative to maintain environment for safety and engage in all aspects of fall prevention program Outcome: Progressing Note: Evaluation of progress towards goal: Call light within reach. Remains free of fall or injury. Environment free of clutter. Problem: Neurological Deficit Goal: Neurological status is stable or improving Description: Patient's goal is: INTERVENTIONS 1. Complete Neurological assessment as indicated/ordered 2. Initiate measures to prevent increased intracranial pressure 3. Monitor and assess patient's level of consciousness, motor function, sensory function, and level of assistance needed for ADLs 4. Monitor and report changes from baseline 5. Maintain blood pressure and fluid volume within ordered parameters to optimize cerebral perfusion and minimize risk of hemorrhage 6. Monitor labs and diagnostic tests 7. Administer anti-seizure medications as ordered 8. Maintain airway, patient safety and administer oxygen as ordered 9. Monitor patient for seizure activity, document and report duration and description of seizure to LIP 10. If seizure occurs, turn patient to side and suction secretions as needed 11. Reorient patient post seizure 12. Seizure pads on all 4 side rails 13. Instruct patient/family to notify RN of any seizure activity 14. Instruct patient/family to call for assistance with activity based on assessment 15. Utilize bleeding precautions if thrombolytic given Outcome: Progressing Note: Evaluation of progress towards goal: Neurological status evaluated for orientation, level of consciousness, motor function and sensory perception. Problem: Anxiety Goal: Anxiety is at manageable level Description: Patient's goal is: INTERVENTIONS 1. Assess and monitor patient's anxiety level 2. Monitor for signs and symptoms of anxiety both physical and emotional (heart palpitations, chest pain, shortness of breath, headaches, nausea, feeling jumpy, restlessness, irritable, apprehensive) 3. Reorient/orient patient to unit/surroundings 4. Explain treatment plan 5. Explain tests/procedures prior to initiation 6. Encourage participation in care 7. Encourage verbalization of concerns/fears 8. Assess coping mechanisms 9. Assist in developing anxiety-reducing skills 10. Administer complimentary therapies 11. Manage patient's environment 12. Limit or eliminate stimulants such as caffeine and nicotine 13. Collaborate with ancillary departments 14. Include patient/patient passenger relations representative in decisions related to anxiety Outcome: Progressing Note: Evaluation of progress towards goal: Patient verbalizes a tolerable anxiety level and remains free of signs and symptoms of anxiety. Will continue to explain treatment plan and monitor for changes in anxiety levels. Problem: Safety - Violent/Self-Destructive Restraint Goal: Appropriate for restraints Description: INTERVENTIONS 1. Assess and document the patient's behavior or symptoms that indicate continued need for restraint, notify LIP and obtain renewal orders as indicated --Q4H for patient age 18 or older --Q2H for patients age 9 through 17 --Q1H for patients age 8 and under 2. Verify that a physician, other LIP, or trained registered nurse has performed a fact to face examination within one hour of restraint application 3. Identify and implement measures to help patient regain control, assess readiness for release and initiate progressive release per policy Outcome: Progressing Note: Evaluation of progress towards goal: Patient assessed frequently for need to continue restraints. Goal: Remains free of injury from restraints Description: INTERVENTIONS 1. Determine that de-escallation and other, less restrictive measures have been tried or would not be effective before applying the restraint 2. Identify and document the criteria for release from restraint 3. Evaluate the patient's condition at the time of restraint application 4. Inform patient/family regarding the reason for restraint, if applicable 5. On initiation, Q2Hr, and before release: monitor vital signs, comfort, signs of injury, skin integrity, circulation, neurovascular status in affected extremity, respiratory status, nutrition and hydration, toileting and hygiene needs 6. Q15M: Perform safety checks including skin, circulation, sensory, ROM, respiratory and psychological status (patient behaviors) 7. Ensure continuous observation 8. Identify and implement measures to help patient regain control, assess readiness for release and initiate progressive release per policy 9. Monitor the emotional well- being of the patient 10. Conduct debriefing with the patient Outcome: Progressing Note: Evaluation of progress towards goal: Frequent safety checks performed. Skin assessed at restraint site. Pt remains free from injury. Problem: Multi-Drug Resistant Organism / Rule-Out Infection Prevention Goal: Prevent transmission of infection Description: INTERVENTIONS 1. Place patient in private room or in room with patient with same disease 2. Discard single-use items 3. Clean reusable equipment between patients 4. Wear gloves for direct and indirect contact with patient or contaminants 5. Change gloves between tasks and procedures 6. Wash hands before and after caring for each patient 7. Wear appropriate personal protective equipment in relation to the indicated isolation type 8. Place appropriate isolation signage on patient's door 9. Provide patient/ patient passenger relations representative with isolation education. Outcome: Progressing Note: Evaluation of progress towards goal: Skin integrity remains in stable condition; remains w/o ss of infection, fever, pain, or increased discomfort. Problem: Moderate - High Risk Fall Score Description: Gallegos Fall Score of =/> 25 or indicated by [facility] Assessment Goal: Patient should be free from fall Description: Interventions: 1. [place] to environment 2. Hourly rounds addressing the 4 P's (Pain, Positioning, Possessions, Potty) 3. Clear area of hazards (spills, clutter, electrical cords, unnecessary equipment) 4. Place equipment (bed & TV controls, call light, phone, urinal) within reach 5. Encourage patient to wear glasses and hearing aides as appropriate 6. Maintain bed in lowest position 7. Lock wheels on bed/wheelchair 8. Provide adequate lighting, including night light 9. Assess need for additional bedding, food/fluids, pain med's prior to sleep/routinely 10. Provide gripper slippers or personal non-skid footwear 11. Teach patient and patient passenger relations representative to maintain environment for safety and engage in all aspects of fall prevention program 12. Remind patient to call for help before getting out of bed 13. Initiate bed/chair/exit alarms supportive devices as appropriate, (chair wedge, no-skid floor mat, raised edge mattress, hip protectors) 14. Locate patient bed assignment for optimal visualization 15. Evaluate and identify Safe Patient Handling Equipment needs 16. Provide supervision when out of bed or chair 17. Utilize gait belt as needed to assist with ambulation 18. Place adaptive equipment (cane, walker) within reach 19. Request patient passenger relations representative bring adaptive equipment/mobility aids from home or obtain and provide as needed 20. Consult pharmacy regarding effects of med's affecting mobility, cognition, and alternatives 21. Obtain physician order for PT if risk factors associated with mobility are present 22. Obtain physician order for OT as appropriate 23. Utilize diversional activities 24. Educate patient and patient passenger relations representative how to maintain a safe environment during visitation times (notify nurse prior to leaving bedside) 25. Consider appropriateness of medical or non-medical reception specialist 26. Set up voiding schedule as appropriate (every 2 hours) Outcome: Progressing Note: Evaluation of progress towards goal: Call light within reach. Remains free of fall or injury. Environment free of clutter. -[facility] [email or web address] 07-09-2024 Progress note Formatting of t his note might be different from the original. BEHAVIORAL RESTRAINTS PROVIDER ONE HOUR [id number] EVALUATION NOTE Noé Jeffery was evaluated on 07/09/2024 at 1950. The patient's immediate situation: patient remains agitated in bed, resisting restraints, shouting verbal threats, not answer questions appropriately, The patient's reaction to the intervention(s): patient failed to respond to verbal redirection, became physically aggressive, became verbally threatening and did not redirect with verbal cues. The patient's medical and behavioral condition was evaluated. The evaluation included a review of: patient history, review of systems and medications. At this time the: patient is psychmotor agitated, threatened staff and has poor impulse control and impaired judgement. Need to continue restraint/seclusion order: Yes Patient needs restraints due to imminent risk of harm to self and others. Jackson Peterson PA-C 07/09/242023 NIGHT 07/09/2024-2310 Patient resting in bed with violent restraints still in place with asleep on couch and sitter at bedside. Patient is much more pleasant at this time however, remains confused and disoriented. Need to continue restraint/seclusion order: Yes Patient needs restraints due to imminent risk of harm to self and others. Jackson Peterson PA-C 07/10/24 0055 NIGHT 07/10/2024-0350 On assessment patient is asleep after receiving medications. Per nursing staff and sitter in the room he has been asleep without anymore outbursts. Will continue to keep restraints in place with plans to go for MRI/LP with sedation later this morning due to waking up agitated. Need to continue restraint/seclusion order: Yes Patient needs restraints due to imminent risk of harm to self and others. Jackson Peterson PA-C 07/10/24 0522 Jackson Peterson PA-C 07/10/24 0523 [email or web address] 07-09-2024 Plan of care note Problem: Safety Goal: Patient will be injury free during hospitalization Description: INTERVENTIONS: 1. Assess patient's risk for falls and implement fall prevention plan of care per policy 2. Provide and maintain a safe environment 3. Proper use of double Identifiers 4. Medication administration using the 5 rights 5. Hand hygiene 6. Specimens are labeled at the bedside 7. Instruct patient/ patient passenger relations representative about use of safety devices 8. Include patient/ patient passenger relations representative in decisions related to safety Outcome: Progressing Note: Evaluation of progress towards goal: safety maintained & call light in reach Problem: Infection Goal: Absence of infection during hospitalization Description: INTERVENTIONS 1. Assess and monitor for signs and symptoms of infection. 2. Monitor lab/diagnostic results. 3. Monitor all insertion sites i.e., indwelling lines, tubes and drains. 4. Monitor endotracheal (as able) and nasal secretions for changes in amount and color. 5. Administer medications as ordered. 6. Instruct and encourage patient and family to use good hand hygiene technique. 7. Identify and instruct patient/patient passenger relations representative in use of appropriate isolation precautions for identified infection/symptoms. 8. Provide and discuss with patient/patient passenger relations representative on educational MDRO sheet. 9. Encourage and monitor nutritional status daily and consult e commerce developer if indicated. 10. Implement neutropenic guidelines as needed. Outcome: Progressing Note: Evaluation of progress towards goal: patient remains afebrile at this time Problem: Knowledge Deficit Goal: Patient/patient passenger relations representative demonstrates understanding of disease process, treatment plan, medications, and discharge instructions Description: INTERVENTIONS 1. Complete learning assessment and assess knowledge base 2. Provide teaching at level of understanding 3. Provide teaching via preferred learning method(s) Outcome: Progressing Note: Evaluation of progress towards goal: POC discussed/updated & Qs addressed. Problem: Discharge Planning Goal: Discharge to post-acute care, other facility, or home with appropriate resources Description: Patient's goal is: INTERVENTIONS 1. Conduct assessment to determine patient/family and health care team treatment goals, and need for post-acute services based on payer coverage, community resources, and patient preferences, and barriers to discharge 2. Coordinate with Social work, Care Navigation, and Utilization Review to arrange appropriate level of services according to patient's needs based on patient preference and payer coverage in collaboration with the physician and health care team 3. Address psychosocial, clinical, and financial barriers to discharge as identified in assessment in conjunction with the patient/family and health care team 4. Consult appropriate ancillary services (i.e.. PT/OT/ST, etc) as needed 5. Communicate with and update the patient/family, physician, and health care team regarding progress on the discharge plan 6. Identify discharge learning needs (meds, wound care, etc). 7. Arrange for needed discharge transportation as appropriate Outcome: Progressing Note: Evaluation of progress towards goal: d/c plan updated & Qs addressed Problem: Low Risk Fall Score Description: Gallegos Fall Score of 0 - [address] [facility] Assessment Goal: Patient should be free from fall Description: Interventions: 1. [place] to environment 2. Hourly rounds addressing the 4 P's (Pain, Positioning, Possessions, Potty) 3. Clear area of hazards (spills, clutter, electrical cords, unnecessary equipment) 4. Place equipment (bed & TV controls, call light, phone, urinal) within reach 5. Encourage patient to wear glasses and hearing aides as appropriate 6. Maintain bed in lowest position 7. Lock wheels on bed/wheelchair 8. Provide adequate lighting, including night light 9. Assess need for additional bedding, food/fluids, pain med's prior to sleep/routinely 10. Provide gripper slippers or personal non-skid footwear 11. Teach patient and patient passenger relations representative to maintain environment for safety and engage in all aspects of fall prevention program Outcome: Progressing Note: Evaluation of progress towards goal: patient remains free of injury, 1:[address] & call light in reach Problem: Neurological Deficit Goal: Neurological status is stable or improving Description: Patient's goal is: INTERVENTIONS 1. Complete Neurological assessment as indicated/ordered 2. Initiate measures to prevent increased intracranial pressure 3. Monitor and assess patient's level of consciousness, motor function, sensory function, and level of assistance needed for ADLs 4. Monitor and report changes from baseline 5. Maintain blood pressure and fluid volume within ordered parameters to optimize cerebral perfusion and minimize risk of hemorrhage 6. Monitor labs and diagnostic tests 7. Administer anti-seizure medications as ordered 8. Maintain airway, patient safety and administer oxygen as ordered 9. Monitor patient for seizure activity, document and report duration and description of seizure to LIP 10. If seizure occurs, turn patient to side and suction secretions as needed 11. Reorient patient post seizure 12. Seizure pads on all 4 side rails 13. Instruct patient/family to notify RN of any seizure activity 14. Instruct patient/family to call for assistance with activity based on assessment 15. Utilize bleeding precautions if thrombolytic given Outcome: Progressing Note: Evaluation of progress towards goal: Neuro Fx changes greatly without obvious, observable causes Problem: Anxiety Goal: Anxiety is at manageable level Description: Patient's goal is: INTERVENTIONS 1. Assess and monitor patient's anxiety level 2. Monitor for signs and symptoms of anxiety both physical and emotional (heart palpitations, chest pain, shortness of breath, headaches, nausea, feeling jumpy, restlessness, irritable, apprehensive) 3. Reorient/orient patient to unit/surroundings 4. Explain treatment plan 5. Explain tests/procedures prior to initiation 6. Encourage participation in care 7. Encourage verbalization of concerns/fears 8. Assess coping mechanisms 9. Assist in developing anxiety-reducing skills 10. Administer complimentary therapies 11. Manage patient's environment 12. Limit or eliminate stimulants such as caffeine and nicotine 13. Collaborate with ancillary departments 14. Include patient/patient passenger relations representative in decisions related to anxiety Outcome: Progressing Note: Evaluation of progress towards goal: discussed w/ patient coping strategies & dietary changes that may aid in controlling stress & anxiety; PRN meds given x1 this shift Problem: Safety - Violent/Self-Destructive Restraint Goal: Appropriate for restraints Description: INTERVENTIONS 1. Assess and document the patient's behavior or symptoms that indicate continued need for restraint, notify LIP and obtain renewal orders as indicated --Q4H for patient age 18 or older --Q2H for patients age 9 through 17 --Q1H for patients age 8 and under 2. Verify that a physician, other LIP, or trained registered nurse has performed a fact to face examination within one hour of restraint application 3. Identify and implement measures to help patient regain control, assess readiness for release and initiate progressive release per policy Outcome: Progressing Note: Evaluation of progress towards goal: patient is a danger to self & others at a moments notice w/o warning of mood change, circulation maintained of wrists & ankles 1;[address] & safety maintained Goal: Remains free of injury from restraints Description: INTERVENTIONS 1. Determine that de-escallation and other, less restrictive measures have been tried or would not be effective before applying the restraint 2. Identify and document the criteria for release from restraint 3. Evaluate the patient's condition at the time of restraint application 4. Inform patient/family regarding the reason for restraint, if applicable 5. On initiation, Q2Hr, and before release: monitor vital signs, comfort, signs of injury, skin integrity, circulation, neurovascular status in affected extremity, respiratory status, nutrition and hydration, toileting and hygiene needs 6. Q15M: Perform safety checks including skin, circulation, sensory, ROM, respiratory and psychological status (patient behaviors) 7. Ensure continuous observation 8. Identify and implement measures to help patient regain control, assess readiness for release and initiate progressive release per policy 9. Monitor the emotional well- being of the patient 10. Conduct debriefing with the patient Outcome: Progressing Note: Evaluation of progress towards goal: safety maintained & call light in reach Problem: Safety - Medical Restraint Goal: Remains free of injury from restraints (Restraint for Interference with Hydro[employer] Power Plant Manager) Description: INTERVENTIONS: 1. Determine that other, less restrictive measures have been tried or would not be effective before applying the restraint 2. Evaluate the patient's condition at the time of restraint application 3. Inform patient/family regarding the reason for restraint 4. Q2H: Monitor safety, Vital signs, psychosocial status, signs of injury, skin integrity, circulation, neurovascular status in affected extremities, respiratory status, comfort, nutrition and hydration, hygiene, ROM, elimination needs 5. Doctor will be notified of restraint 6. RN properly applies restraints per physician order Outcome: Progressing Note: Evaluation of progress towards goal: patient is a danger to self & others at a moments notice w/o warning of mood change, circulation maintained of wrists & ankles 1;[address] & safety maintained Goal: Free from restraint(s) (Restraint for Interference with Hydro[employer] Power Plant Manager) Description: INTERVENTIONS: 1. ONCE/SHIFT or MINIMUM Q12H: Assess and document the continuing need for restraints 2. Order is valid for the duration of the episode of care 3. Discontinue at the earliest possible time once the reason for restraints no longer exists 4. Identify and implement measures to help patient regain control 5. Food, fluids, and toilet offered at a minimum of every 2 hours 6. RN modifies the patient's plan of care by entering a problem statement related to safety; individualizes the safety outcome Outcome: Progressing Note: Evaluation of progress towards goal: patient is a danger to self & others at a moments notice w/o warning of mood change, circulation maintained of wrists & ankles 1;[address] & safety maintained Problem: Multi-Drug Resistant Organism / Rule-Out Infection Prevention Goal: Prevent transmission of infection Description: INTERVENTIONS 1. Place patient in private room or in room with patient with same disease 2. Discard single-use items 3. Clean reusable equipment between patients 4. Wear gloves for direct and indirect contact with patient or contaminants 5. Change gloves between tasks and procedures 6. Wash hands before and after caring for each patient 7. Wear appropriate personal protective equipment in relation to the indicated isolation type 8. Place appropriate isolation signage on patient's door 9. Provide patient/ patient passenger relations representative with isolation education. Outcome: Progressing Note: Evaluation of progress towards goal: patient remains afebrile at this time [facility] 07-09-2024 Progress note Formatting of t his note might be different from the original. DISCHARGE PLANNING NOTE Clinical updates including sent to. [facility] Jose Enrique. (P# [phone] ; F# [phone]) via [employer] [facility] 07-09-2024 Progress note Formatting of t his note is different from the original. Query Response Note CDI QUERY TEXT: Altered Mental Status - Underlying Cause [id number] Disclaimer: By submitting this query, we are merely seeking further clarification of documentation to accurately reflect all conditions that you are monitoring, evaluating, treating or that extend the hospitalization or utilize additional resources of care. Please utilize your independent clinical judgment when addressing the question(s) below. Please clarify the underlying cause of patient's altered mental status and relate that cause to the alteration in mental status: - Metabolic encephalopathy - Toxic encephalopathy - Other explanation of clinical findings (please specify): 07/07 Neurology PN Likely had paradoxical agitation with benzodiazepines, akathisia/neuropsychiatric symptoms with benadryl . 07/08 Neurology PN Early onset Alzheimer's disease however intact ADLs and IADLs as per family prior to fall in May. Patient was driving until 2 weeks ago. Change in personality, impaired comprehension, attention, episodes of severe aggression, and paranoid behavior as per family is new and noted about 3 weeks ago, after a fall . Thank you, Ethel Bueno RN, PRADEEP [email or web address] The patient's Clinical Indicators include: As above CDI RESPONSE TEXT: Patient has progression of dementia causing agitation, no evidence of metabolic or toxic encephalopathy. Query created by: Ethel Bueno on 07/09/2024 5:42 AM Electronically signed by: Lonnie Baker MD 07/09/2024 3:22 PM [facility] [employer] [facility] 07-09-2024 Progress note Formatting of t his note might be different from the original. DISCHARGE PLANNING NOTE Referral sent to [facility] (P# [phone] ; F# [phone]) [facility] [employer] [facility] Progress note Formatting of t his note might be different from the original. DISCHARGE PLANNING NOTE Per RN during discharge transition rounds, barriers to discharge are: Needs MRI with sedation, LP with sedation, non-violent restraints, confused, restless, and disoriented, psych needs to see Discharge Plan: TBD. Planning placement or inpatient behavioral unit. CN does not believe it is safe for patient to return home. Psych SW following. [employer] will continue to follow for any discharge needs. - Lesia Caba RN 07/09/24 1:11 PM [facility] Plan of care note Problem: Safety Goal: Patient will be injury free during hospitalization Description: INTERVENTIONS: 1. Assess patient's risk for falls and implement fall prevention plan of care per policy 2. Provide and maintain a safe environment 3. Proper use of double Identifiers 4. Medication administration using the 5 rights 5. Hand hygiene 6. Specimens are labeled at the bedside 7. Instruct patient/ patient passenger relations representative about use of safety devices 8. Include patient/ patient passenger relations representative in decisions related to safety Outcome: Progressing Note: Evaluation of progress towards goal: safety precautions in place Problem: Infection Goal: Absence of infection during hospitalization Description: INTERVENTIONS 1. Assess and monitor for signs and symptoms of infection. 2. Monitor lab/diagnostic results. 3. Monitor all insertion sites i.e., indwelling lines, tubes and drains. 4. Monitor endotracheal (as able) and nasal secretions for changes in amount and color. 5. Administer medications as ordered. 6. Instruct and encourage patient and family to use good hand hygiene technique. 7. Identify and instruct patient/patient passenger relations representative in use of appropriate isolation precautions for identified infection/symptoms. 8. Provide and discuss with patient/patient passenger relations representative on educational MDRO sheet. 9. Encourage and monitor nutritional status daily and consult e commerce developer if indicated. 10. Implement neutropenic guidelines as needed. Outcome: Progressing Note: Evaluation of progress towards goal: monitor s/s of infection Problem: Knowledge Deficit Goal: Patient/patient passenger relations representative demonstrates understanding of disease process, treatment plan, medications, and discharge instructions Description: INTERVENTIONS 1. Complete learning assessment and assess knowledge base 2. Provide teaching at level of understanding 3. Provide teaching via preferred learning method(s) Outcome: Progressing Note: Evaluation of progress towards goal: patient education every shift Problem: Discharge Planning Goal: Discharge to post-acute care, other facility, or home with appropriate resources Description: Patient's goal is: INTERVENTIONS 1. Conduct assessment to determine patient/family and health care team treatment goals, and need for post-acute services based on payer coverage, community resources, and patient preferences, and barriers to discharge 2. Coordinate with Social work, Care Navigation, and Utilization Review to arrange appropriate level of services according to patient's needs based on patient preference and payer coverage in collaboration with the physician and health care team 3. Address psychosocial, clinical, and financial barriers to discharge as identified in assessment in conjunction with the patient/family and health care team 4. Consult appropriate ancillary services (i.e.. PT/OT/ST, etc) as needed 5. Communicate with and update the patient/family, physician, and health care team regarding progress on the discharge plan 6. Identify discharge learning needs (meds, wound care, etc). 7. Arrange for needed discharge transportation as appropriate Outcome: Progressing Note: Evaluation of progress towards goal: clinical barriers in place Problem: Low Risk Fall Score Description: Gallegos Fall Score of 0 - [address] [facility] Assessment Goal: Patient should be free from fall Description: Interventions: 1. [place] to environment 2. Hourly rounds addressing the 4 P's (Pain, Positioning, Possessions, Potty) 3. Clear area of hazards (spills, clutter, electrical cords, unnecessary equipment) 4. Place equipment (bed & TV controls, call light, phone, urinal) within reach 5. Encourage patient to wear glasses and hearing aides as appropriate 6. Maintain bed in lowest position 7. Lock wheels on bed/wheelchair 8. Provide adequate lighting, including night light 9. Assess need for additional bedding, food/fluids, pain med's prior to sleep/routinely 10. Provide gripper slippers or personal non-skid footwear 11. Teach patient and patient passenger relations representative to maintain environment for safety and engage in all aspects of fall prevention program Outcome: Progressing Note: Evaluation of progress towards goal: fall precautions, hourly rounding Problem: Neurological Deficit Goal: Neurological status is stable or improving Description: Patient's goal is: INTERVENTIONS 1. Complete Neurological assessment as indicated/ordered 2. Initiate measures to prevent increased intracranial pressure 3. Monitor and assess patient's level of consciousness, motor function, sensory function, and level of assistance needed for ADLs 4. Monitor and report changes from baseline 5. Maintain blood pressure and fluid volume within ordered parameters to optimize cerebral perfusion and minimize risk of hemorrhage 6. Monitor labs and diagnostic tests 7. Administer anti-seizure medications as ordered 8. Maintain airway, patient safety and administer oxygen as ordered 9. Monitor patient for seizure activity, document and report duration and description of seizure to LIP 10. If seizure occurs, turn patient to side and suction secretions as needed 11. Reorient patient post seizure 12. Seizure pads on all 4 side rails 13. Instruct patient/family to notify RN of any seizure activity 14. Instruct patient/family to call for assistance with activity based on assessment 15. Utilize bleeding precautions if thrombolytic given Outcome: Progressing Note: Evaluation of progress towards goal: neuro assessments every 4 hours Problem: Anxiety Goal: Anxiety is at manageable level Description: Patient's goal is: INTERVENTIONS 1. Assess and monitor patient's anxiety level 2. Monitor for signs and symptoms of anxiety both physical and emotional (heart palpitations, chest pain, shortness of breath, headaches, nausea, feeling jumpy, restlessness, irritable, apprehensive) 3. Reorient/orient patient to unit/surroundings 4. Explain treatment plan 5. Explain tests/procedures prior to initiation 6. Encourage participation in care 7. Encourage verbalization of concerns/fears 8. Assess coping mechanisms 9. Assist in developing anxiety-reducing skills 10. Administer complimentary therapies 11. Manage patient's environment 12. Limit or eliminate stimulants such as caffeine and nicotine 13. Collaborate with ancillary departments 14. Include patient/patient passenger relations representative in decisions related to anxiety Outcome: Progressing Note: Evaluation of progress towards goal: therapeutic communication Problem: Safety - Violent/Self-Destructive Restraint Goal: Appropriate for restraints Description: INTERVENTIONS 1. Assess and document the patient's behavior or symptoms that indicate continued need for restraint, notify LIP and obtain renewal orders as indicated --Q4H for patient age 18 or older --Q2H for patients age 9 through 17 --Q1H for patients age 8 and under 2. Verify that a physician, other LIP, or trained registered nurse has performed a fact to face examination within one hour of restraint application 3. Identify and implement measures to help patient regain control, assess readiness for release and initiate progressive release per policy Outcome: Progressing Note: Evaluation of progress towards goal: aggressive behavior at the end of the shift, restraints initiated at 1904 07/08 Goal: Remains free of injury from restraints Description: INTERVENTIONS 1. Determine that de-escallation and other, less restrictive measures have been tried or would not be effective before applying the restraint 2. Identify and document the criteria for release from restraint 3. Evaluate the patient's condition at the time of restraint application 4. Inform patient/family regarding the reason for restraint, if applicable 5. On initiation, Q2Hr, and before release: monitor vital signs, comfort, signs of injury, skin integrity, circulation, neurovascular status in affected extremity, respiratory status, nutrition and hydration, toileting and hygiene needs 6. Q15M: Perform safety checks including skin, circulation, sensory, ROM, respiratory and psychological status (patient behaviors) 7. Ensure continuous observation 8. Identify and implement measures to help patient regain control, assess readiness for release and initiate progressive release per policy 9. Monitor the emotional well- being of the patient 10. Conduct debriefing with the patient Outcome: Progressing Note: Evaluation of progress towards goal: assess restraints every 2 hours Problem: Safety - Medical Restraint Goal: Remains free of injury from restraints (Restraint for Interference with [employer] Power Plant Manager) Description: INTERVENTIONS: 1. Determine that other, less restrictive measures have been tried or would not be effective before applying the restraint 2. Evaluate the patient's condition at the time of restraint application 3. Inform patient/family regarding the reason for restraint 4. Q2H: Monitor safety, Vital signs, psychosocial status, signs of injury, skin integrity, circulation, neurovascular status in affected extremities, respiratory status, comfort, nutrition and hydration, hygiene, ROM, elimination needs 5. Doctor will be notified of restraint 6. RN properly applies restraints per physician order Outcome: Progressing Note: Evaluation of progress towards goal: monitor response and vitals Goal: Free from restraint(s) (Restraint for Interference with Hydro[employer] Power Plant Manager) Description: INTERVENTIONS: 1. ONCE/SHIFT or MINIMUM Q12H: Assess and document the continuing need for restraints 2. Order is valid for the duration of the episode of care 3. Discontinue at the earliest possible time once the reason for restraints no longer exists 4. Identify and implement measures to help patient regain control 5. Food, fluids, and toilet offered at a minimum of every 2 hours 6. RN modifies the patient's plan of care by entering a problem statement related to safety; individualizes the safety outcome Outcome: Progressing Note: Evaluation of progress towards goal: fall precautions in place, hourly rounding [facility] 07-08-2024 Progress note Formatting of t his note might be different from the original. BEHAVIORAL RESTRAINTS PROVIDER ONE HOUR [id number] EVALUATION NOTE Noé Jeffery was evaluated on 07/08/2024 at 1906. Called to bedside at shift change. Patient physically aggressive cornering staff and outside of his room. Security called to get patient back in bed requiring violent restraints. Patient had similar episode around 0400 this morning requiring same interventions however, was able to come out of restraints during day shift's assessment. The patient's immediate situation: patient became physically aggressive, made verbal threats to others, shouting in the hallway. Per nursing staff and , patient thinks they are intruders and believes he is being robbed. The patient's reaction to the intervention(s): patient failed to respond to verbal redirection, became physically aggressive, became verbally threatening and did not redirect with verbal cues. The patient's medical and behavioral condition was evaluated. The evaluation included a review of: patient history, review of systems and medications. At this time the: patient is psychmotor agitated, threatened staff and has poor impulse control and impaired judgement. Need to continue restraint/seclusion order: Yes Patient needs restraints due to imminent risk of harm to self and others. Jackson Peterson PA-C 07/08/242014 NIGHT07/08/24 On reassessment patient is resting in bed with restraints still in place. Patient appears improved, more pleasant and answering questions appropriately. Alert only to self. Aware he is in the hospital, does not recall which one. Patient tells me the year is 2022. Told me he is here because he is being a bad boy . Denies any pain or discomfort at this time. Patient agrees with having restraints removed so he can rest comfortably through the night. and sitter will remain in the room. Plan of care discussed with patient and at bedside. All questions answered. Need to continue restraint/seclusion order: No Jackson Peterson PA-C 07/08/24 [id number] NIGHT07/09/24-3:31 AM Called to bedside after patient woke up to go to restroom and suddenly became verbally abusive and physical aggressive with . Patient was not redirectable, security called to get patient back in restraints. Patient answers questions with curse words only. Need to continue restraint/seclusion order: Yes Patient needs restraints due to imminent risk of harm to self and others. Jackson Peterson PA-C 07/09/24 [id number] 07-08-2024 Progress note Formatting of t his note might be different from the original. [facility] NIGHT BEHAVIORAL RESTRAINTS PROVIDER ONE HOUR [id number] EVALUATION NOTE Noé Jeffery was evaluated on 07/08/2023 at 0441. The patient's immediate situation: patient became physically aggressive with others and would not stay in bed/room. The patient's reaction to the intervention(s): patient failed to respond to verbal redirection, became physically aggressive, and did not redirect with verbal cues. The patient's medical and behavioral condition was evaluated. The evaluation included a review of: patient history, review of systems, and medications. At this time the: patient is psychmotor agitated, threatened staff, has poor impulse control and impaired judgement. Need to continue restraint/seclusion order: Yes Patient needs restraints due to imminent risk of harm to self and others. Jackson Peterson PA-C 07/08/24 0446 [facility] 07-08-2024 Plan of care note Problem: Safety Goal: Patient will be injury free during hospitalization Description: INTERVENTIONS: 1. Assess patient's risk for falls and implement fall prevention plan of care per policy 2. Provide and maintain a safe environment 3. Proper use of double Identifiers 4. Medication administration using the 5 rights 5. Hand hygiene 6. Specimens are labeled at the bedside 7. Instruct patient/ patient passenger relations representative about use of safety devices 8. Include patient/ patient passenger relations representative in decisions related to safety Outcome: Progressing Note: Evaluation of progress towards goal: Patient remains free injury at current shift, plan of care still ongoing. Problem: Infection Goal: Absence of infection during hospitalization Description: INTERVENTIONS 1. Assess and monitor for signs and symptoms of infection. 2. Monitor lab/diagnostic results. 3. Monitor all insertion sites i.e., indwelling lines, tubes and drains. 4. Monitor endotracheal (as able) and nasal secretions for changes in amount and color. 5. Administer medications as ordered. 6. Instruct and encourage patient and family to use good hand hygiene technique. 7. Identify and instruct patient/patient passenger relations representative in use of appropriate isolation precautions for identified infection/symptoms. 8. Provide and discuss with patient/patient passenger relations representative on educational MDRO sheet. 9. Encourage and monitor nutritional status daily and consult e commerce developer if indicated. 10. Implement neutropenic guidelines as needed. Outcome: Progressing Note: Evaluation of progress towards goal: Patient has no infection at this time. Problem: Knowledge Deficit Goal: Patient/patient passenger relations representative demonstrates understanding of disease process, treatment plan, medications, and discharge instructions Description: INTERVENTIONS 1. Complete learning assessment and assess knowledge base 2. Provide teaching at level of understanding 3. Provide teaching via preferred learning method(s) Outcome: Progressing Note: Evaluation of progress towards goal: Patient's has been able to demonstrate understanding of disease process, treatment plan, medications and discharge instructions. Problem: Discharge Planning Goal: Discharge to post-acute care, other facility, or home with appropriate resources Description: Patient's goal is: INTERVENTIONS 1. Conduct assessment to determine patient/family and health care team treatment goals, and need for post-acute services based on payer coverage, community resources, and patient preferences, and barriers to discharge 2. Coordinate with Social work, Care Navigation, and Utilization Review to arrange appropriate level of services according to patient's needs based on patient preference and payer coverage in collaboration with the physician and health care team 3. Address psychosocial, clinical, and financial barriers to discharge as identified in assessment in conjunction with the patient/family and health care team 4. Consult appropriate ancillary services (i.e.. PT/OT/ST, etc) as needed 5. Communicate with and update the patient/family, physician, and health care team regarding progress on the discharge plan 6. Identify discharge learning needs (meds, wound care, etc). 7. Arrange for needed discharge transportation as appropriate Outcome: Progressing Note: Evaluation of progress towards goal: Patient is awaiting to be evaluated by PT/OT. Problem: Low Risk Fall Score Description: Gallegos Fall Score of 0 - [address] [facility] Assessment Goal: Patient should be free from fall Description: Interventions: 1. [place] to environment 2. Hourly rounds addressing the 4 P's (Pain, Positioning, Possessions, Potty) 3. Clear area of hazards (spills, clutter, electrical cords, unnecessary equipment) 4. Place equipment (bed & TV controls, call light, phone, urinal) within reach 5. Encourage patient to wear glasses and hearing aides as appropriate 6. Maintain bed in lowest position 7. Lock wheels on bed/wheelchair 8. Provide adequate lighting, including night light 9. Assess need for additional bedding, food/fluids, pain med's prior to sleep/routinely 10. Provide gripper slippers or personal non-skid footwear 11. Teach patient and patient passenger relations representative to maintain environment for safety and engage in all aspects of fall prevention program Outcome: Progressing Note: Evaluation of progress towards goal: Patient remains free from falls at current time, plan of care still ongoing. Problem: Neurological Deficit Goal: Neurological status is stable or improving Description: Patient's goal is: INTERVENTIONS 1. Complete Neurological assessment as indicated/ordered 2. Initiate measures to prevent increased intracranial pressure 3. Monitor and assess patient's level of consciousness, motor function, sensory function, and level of assistance needed for ADLs 4. Monitor and report changes from baseline 5. Maintain blood pressure and fluid volume within ordered parameters to optimize cerebral perfusion and minimize risk of hemorrhage 6. Monitor labs and diagnostic tests 7. Administer anti-seizure medications as ordered 8. Maintain airway, patient safety and administer oxygen as ordered 9. Monitor patient for seizure activity, document and report duration and description of seizure to LIP 10. If seizure occurs, turn patient to side and suction secretions as needed 11. Reorient patient post seizure 12. Seizure pads on all 4 side rails 13. Instruct patient/family to notify RN of any seizure activity 14. Instruct patient/family to call for assistance with activity based on assessment 15. Utilize bleeding precautions if thrombolytic given Outcome: Progressing Note: Evaluation of progress towards goal: Patient's neurological status has been stable, plan of care still ongoing with Q4 hour neuro checks. Problem: Anxiety Goal: Anxiety is at manageable level Description: Patient's goal is: INTERVENTIONS 1. Assess and monitor patient's anxiety level 2. Monitor for signs and symptoms of anxiety both physical and emotional (heart palpitations, chest pain, shortness of breath, headaches, nausea, feeling jumpy, restlessness, irritable, apprehensive) 3. Reorient/orient patient to unit/surroundings 4. Explain treatment plan 5. Explain tests/procedures prior to initiation 6. Encourage participation in care 7. Encourage verbalization of concerns/fears 8. Assess coping mechanisms 9. Assist in developing anxiety-reducing skills 10. Administer complimentary therapies 11. Manage patient's environment 12. Limit or eliminate stimulants such as caffeine and nicotine 13. Collaborate with ancillary departments 14. Include patient/patient passenger relations representative in decisions related to anxiety Outcome: Progressing Note: Evaluation of progress towards goal: Patient is able to manage anxiety level at this time, plan of care still ongoing. [facility] 07-07-2024 Plan of care note Problem: Safety Goal: Patient will be injury free during hospitalization Description: INTERVENTIONS: 1. Assess patient's risk for falls and implement fall prevention plan of care per policy 2. Provide and maintain a safe environment 3. Proper use of double Identifiers 4. Medication administration using the 5 rights 5. Hand hygiene 6. Specimens are labeled at the bedside 7. Instruct patient/ patient passenger relations representative about use of safety devices 8. Include patient/ patient passenger relations representative in decisions related to safety Outcome: Progressing Note: Evaluation of progress towards goal: safety precautions in place, hourly rounding Problem: Infection Goal: Absence of infection during hospitalization Description: INTERVENTIONS 1. Assess and monitor for signs and symptoms of infection. 2. Monitor lab/diagnostic results. 3. Monitor all insertion sites i.e., indwelling lines, tubes and drains. 4. Monitor endotracheal (as able) and nasal secretions for changes in amount and color. 5. Administer medications as ordered. 6. Instruct and encourage patient and family to use good hand hygiene technique. 7. Identify and instruct patient/patient passenger relations representative in use of appropriate isolation precautions for identified infection/symptoms. 8. Provide and discuss with patient/patient passenger relations representative on educational MDRO sheet. 9. Encourage and monitor nutritional status daily and consult e commerce developer if indicated. 10. Implement neutropenic guidelines as needed. Outcome: Progressing Note: Evaluation of progress towards goal: monitor s/s of infection, monitor labs, standard precautions Problem: Knowledge Deficit Goal: Patient/patient passenger relations representative demonstrates understanding of disease process, treatment plan, medications, and discharge instructions Description: INTERVENTIONS 1. Complete learning assessment and assess knowledge base 2. Provide teaching at level of understanding 3. Provide teaching via preferred learning method(s) Outcome: Progressing Note: Evaluation of progress towards goal: encourage questions and discussions about care plan, therapeutic communication, patient education every shift Problem: Discharge Planning Goal: Discharge to post-acute care, other facility, or home with appropriate resources Description: Patient's goal is: INTERVENTIONS 1. Conduct assessment to determine patient/family and health care team treatment goals, and need for post-acute services based on payer coverage, community resources, and patient preferences, and barriers to discharge 2. Coordinate with Social work, Care Navigation, and Utilization Review to arrange appropriate level of services according to patient's needs based on patient preference and payer coverage in collaboration with the physician and health care team 3. Address psychosocial, clinical, and financial barriers to discharge as identified in assessment in conjunction with the patient/family and health care team 4. Consult appropriate ancillary services (i.e.. PT/OT/ST, etc) as needed 5. Communicate with and update the patient/family, physician, and health care team regarding progress on the discharge plan 6. Identify discharge learning needs (meds, wound care, etc). 7. Arrange for needed discharge transportation as appropriate Outcome: Progressing Note: Evaluation of progress towards goal: clinical barriers in place Problem: Low Risk Fall Score Description: Gallegos Fall Score of 0 - [address] [facility] Assessment Goal: Patient should be free from fall Description: Interventions: 1. [place] to environment 2. Hourly rounds addressing the 4 P's (Pain, Positioning, Possessions, Potty) 3. Clear area of hazards (spills, clutter, electrical cords, unnecessary equipment) 4. Place equipment (bed & TV controls, call light, phone, urinal) within reach 5. Encourage patient to wear glasses and hearing aides as appropriate 6. Maintain bed in lowest position 7. Lock wheels on bed/wheelchair 8. Provide adequate lighting, including night light 9. Assess need for additional bedding, food/fluids, pain med's prior to sleep/routinely 10. Provide gripper slippers or personal non-skid footwear 11. Teach patient and patient passenger relations representative to maintain environment for safety and engage in all aspects of fall prevention program Outcome: Progressing Note: Evaluation of progress towards goal: fall precautions in place, hourly rounding, call light within reach -[facility] [email or web address] 07-07-2024 Progress note Formatting of t his note is different from the original. Query Response Note AUTOMATED QUERY TEXT: Type of Epilepsy: This query seeks further clarification of documentation to reflect all conditions that you are monitoring, evaluating, treating or that extend hospitalization or utilize additional resources. Please utilize your independent clinical judgment when addressing the question(s) below. Please provide further specificity and note if with or without status epilepticus. Clinical indicators include: epilepsy, fall, agitation Options provided: -- Generalized epilepsy -- Epilepsy with intractable seizures -- Epilepsy with simple partial seizures -- Epilepsy with complex partial seizures -- Epilepsy with grand mal (tonic/clonic) seizures -- Other - I will add my own diagnosis -- Dismiss - Not applicable / Not valid AUTOMATED QUERY RESPONSE TEXT: History of epilepsy in childhood from age 1-5 unclear semiology Electronically signed by: Khalif Valerio MD 07/07/2024 7:10 AM [facility] 07-06-2024 Plan of care note Problem: Safety Goal: Patient will be injury free during hospitalization Description: INTERVENTIONS: 1. Assess patient's risk for falls and implement fall prevention plan of care per policy 2. Provide and maintain a safe environment 3. Proper use of double Identifiers 4. Medication administration using the 5 rights 5. Hand hygiene 6. Specimens are labeled at the bedside 7. Instruct patient/ patient passenger relations representative about use of safety devices 8. Include patient/ patient passenger relations representative in decisions related to safety Outcome: Progressing Note: Evaluation of progress towards goal: Patient remains injury and fall free. Safety precautions in place: call light within reach, bed in lowest position, personal belongings within reach, oriented to environment, and non-slip footwear on. Problem: Infection Goal: Absence of infection during hospitalization Description: INTERVENTIONS 1. Assess and monitor for signs and symptoms of infection. 2. Monitor lab/diagnostic results. 3. Monitor all insertion sites i.e., indwelling lines, tubes and drains. 4. Monitor endotracheal (as able) and nasal secretions for changes in amount and color. 5. Administer medications as ordered. 6. Instruct and encourage patient and family to use good hand hygiene technique. 7. Identify and instruct patient/patient passenger relations representative in use of appropriate isolation precautions for identified infection/symptoms. 8. Provide and discuss with patient/patient passenger relations representative on educational MDRO sheet. 9. Encourage and monitor nutritional status daily and consult e commerce developer if indicated. 10. Implement neutropenic guidelines as needed. Outcome: Progressing Note: Evaluation of progress towards goal: Patient remains free of any signs of infection. Signs and symptoms being monitor such as fevers, chills, warm/red areas. Problem: Knowledge Deficit Goal: Patient/patient passenger relations representative demonstrates understanding of disease process, treatment plan, medications, and discharge instructions Description: INTERVENTIONS 1. Complete learning assessment and assess knowledge base 2. Provide teaching at level of understanding 3. Provide teaching via preferred learning method(s) Outcome: Progressing Note: Evaluation of progress towards goal: Patient verbalizes understanding of disease process, treatment plan, medications, and discharge plan. Continue to update with any changes. Problem: Discharge Planning Goal: Discharge to post-acute care, other facility, or home with appropriate resources Description: Patient's goal is: INTERVENTIONS 1. Conduct assessment to determine patient/family and health care team treatment goals, and need for post-acute services based on payer coverage, community resources, and patient preferences, and barriers to discharge 2. Coordinate with Social work, Care Navigation, and Utilization Review to arrange appropriate level of services according to patient's needs based on patient preference and payer coverage in collaboration with the physician and health care team 3. Address psychosocial, clinical, and financial barriers to discharge as identified in assessment in conjunction with the patient/family and health care team 4. Consult appropriate ancillary services (i.e.. PT/OT/ST, etc) as needed 5. Communicate with and update the patient/family, physician, and health care team regarding progress on the discharge plan 6. Identify discharge learning needs (meds, wound care, etc). 7. Arrange for needed discharge transportation as appropriate Outcome: Progressing Note: Evaluation of progress towards goal: Patient verbalizes discharge plan. Will continue to update with any changes. Problem: Low Risk Fall Score Description: Gallegos Fall Score of 0 - 24 or indicated by [facility] Assessment Goal: Patient should be free from fall Description: Interventions: 1. [place] to environment 2. Hourly rounds addressing the 4 P's (Pain, Positioning, Possessions, Potty) 3. Clear area of hazards (spills, clutter, electrical cords, unnecessary equipment) 4. Place equipment (bed & TV controls, call light, phone, urinal) within reach 5. Encourage patient to wear glasses and hearing aides as appropriate 6. Maintain bed in lowest position 7. Lock wheels on bed/wheelchair 8. Provide adequate lighting, including night light 9. Assess need for additional bedding, food/fluids, pain med's prior to sleep/routinely 10. Provide gripper slippers or personal non-skid footwear 11. Teach patient and patient passenger relations representative to maintain environment for safety and engage in all aspects of fall prevention program Outcome: Progressing Note: Evaluation of progress towards goal: Patient remains injury and fall free. Safety precautions in place: call light within reach, bed in lowest position, personal belongings within reach, oriented to environment, and non-slip footwear on. Problem: Pain Goal: Patient goal is pain score less than 4, able to rest, and participant in treatment plan as appropriate Description: INTERVENTIONS: 1. Encourage patient or legal passenger relations representative to report early pain and ask for pain medicine when needed 2. Assess pain using appropriate pain scale and include the scale used when documenting 3. Administer analgesics based on type and severity of pain and evaluate response within appropriate time frame 4. Implement non-pharmacological measures as appropriate and evaluate response 5. Consider cultural and social influences on pain and pain management 6. Notify LIP if interventions ineffective or patient reports new pain 7. Monitor vital signs including pulse ox, end-tidal CO2 based on pain intervention 8. Reassess pain per policy 9. Teach patient or legal passenger relations representative interventions for comforting Outcome: Completed Note: Evaluation of progress towards goal: Patient has no complaints of pain. Reassessed per policy. [employer] 07-06-2024 Progress note Formatting of t his note might be different from the original. An attempt was made to interview the patient today in the presence of his . The patient refused and asked the engineering writer to leave stating that he does not want a psychiatric evaluation. Psychiatry will sign off. [employer] Work Phone: 07-06-2024 Progress note Formatting of t his note is different from the original. Images from the original note were not included. DISCHARGE PLANNING NOTE Roll Forming Machine Operator met with patient, introduced self, and explained role. Patient educated on safe discharge plan. Pt admitted 07/06/2024 with Dementia with behavioral disturbance (CMS-HCC) [F03.918] At risk for long QT syndrome [Z91.89] Altered mental status [R41.82] per chart review. Consults: Neurology and Psychiatry Discharge Barriers per Daily Transition Rounds and chart review: Psych and neuro to see, will need EEG, MRI, CT brain. Past Medical History: Diagnosis Date GERD (gastroesophageal reflux disease) High cholesterol Perforated sigmoid colon (CMS-HCC) Prior to admission patient was living with spouse/significant other and self care. Medical equipment patient used prior to admission includes: CPAP. Patient spouse denies need for transportation/ food/ prescription medication assistance resources. PCP: JAE LOPEZ MD Pharmacy:[facility] PCP and pharmacy confirmed with patient. CN offered to assist with follow up appointment arrangements; JAE LOPEZ MD added to Follow Up Providers for Summary of Care communication. Per spouse-report: Drug use: no Smoking: no ETOH Use: no Current discharge plan is: TBD- pending PT/OT eval Services Requested: Goals: Goals (pt-stated) Evaluation of progress towards goal: TBD-pending PT/OT eval Will continue to follow as plan of care develops. CN discussed benefits and importance of medication compliance and follow ups. Please feel free to reach out for any discharge planning questions. - Jac Austin RN 07/06/24 4:01 PM [email or web address] 07-06-2024 Progress note Formatting of t his note might be different from the original. Called spouse and left message. Will await call back. - NANCY Martines 07/06/24 3:25 PM [email or web address] 07-06-2024 Progress note Formatting of t his note might be different from the original. Attempted to interview patient in order to complete a psychosocial assessment. Patient did answer any questions posed by TRUDI. Family members (two siblings) where in the room and asked that SW call and speak to spouse as patient would be unable to give any background information. Will speak to spouse. - NANCY Martines 07/06/24 11:02 AM [email or web address] 07-06-2024 Consult note Associated Order (s): IP CONSULT TO NEUROLOGY Images from the original note were not included. [facility] Neurology General Neurology Consult Note Primary Neurology service: [phone] Chief Complaint: HPI: Noé Jeffery is a 58 y.o. 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 He follows up with [facility] Neurology and had underwent a heavy metal screen, [facility] analysis, MRI 2021 showing severe generalized volume loss and hippocampal volumes at the 1st percentile of his age group. Patient had been having forgetfulness and increase cognition since 2021 but per family was driving and functioning normally up until having a fall June 09 after which he started having behavioral changes and would walk outside in the called and easily angry, that time workup was negative and nothing was reported on a CT per family. And that is when his mental status took a sharp decline, Patient had presented to ED in [place] June 18 after waking up not oriented and delusional. Then June 25 he woke up again not knowing where he is delusional thinking his sister was an intruder so he was brought to [facility] and discharged later that evening. He was seen by social service assistant referred to a mental health center and per family his mental status had worsened and they felt he was being overmedicated with Benadryl. 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 The impression there was no infectious or metabolic etiology so patient was transferred to [facility] for higher level of care. On my evaluation patient was restless fidgeting and did not allow me to speak him or enter the room, he would tell me his family members names what refused to tell me his name asked me to leave the room. I could not do any assessment Dawes test or neurological exam. Per family patient had not received his morning medication. History: Past Medical History/Surgical History: Active Ambulatory Problems Diagnosis Date Noted Laceration of left ulnar artery 11/24/2019 Resolved Ambulatory Problems Diagnosis Date Noted No Resolved Ambulatory Problems Past Medical History: Diagnosis Date GERD (gastroesophageal reflux disease) High cholesterol Perforated sigmoid colon (CMS-HCC) Family History: Family History Problem Relation Age of Onset Breast cancer Sister Social History: Social History Socioeconomic History Marital status: Spouse name: Not on file Number of children: Not on file Years of education: Not on file Highest education level: Not on file Occupational History Not on file Tobacco Use Smoking status: Never Smokeless tobacco: Never Substance and Sexual Activity Alcohol use: No Drug use: No Sexual activity: Defer Partners: Female Other Topics Concern Not on file Social History Narrative Not on file Social Drivers of Health Financial Resource Strain: Not on file Food Insecurity: No Food Insecurity (06/24/2024) Hunger Screening Food Insecurity - Worry: Never True Food Insecurity - Inability: Never True Transportation Needs: Not on file Physical Activity: Not on file Stress: Not on file Social Connections: Not on file Interpersonal Safety: Not on file Housing Instability: Not on file Medications: Unknown Allergies: Allergies Allergen Reactions Diphenhydramine Abnormal Behavior Review of Systems: Review of Systems Unable to perform ROS: Other Physical Exam Vital Signs: There were no vitals filed for this visit. General: Restless fidgety. Neurologic: Mental status: Alert, oriented to self family otherwise did not respond to my questions. Cranial nerves: II: Unable to assess III, IV, : extraocular movements intact; no ptosis. No nystagmus. VIII : Patient appears to be hearing questions no difficulties. XI: Patient elevates shoulder Unable to assess cranial nerves Motor: Moving all extremities no tremors or abnormal movements noted Pertinent testing: Pertinent Labs: Imaging: Other Testing: Assessment and Plan: This is a 58-year-old male with past history of complex sleep apnea on CPAP, major cognitive disorder with bio markers confirmed early onset Alzheimer's established in [facility] October 2022 in addition to hyperlipidemia, GERD, dm 2. Patient was transferred found [facility] for higher level of care and workup of sharp decline in cognition since May 2024. Patient had presented multiple times to the ED and admitted [facility] for delusional thinking/hallucinations/agitatio n. On evaluation patient was fidgety restless and requested that I leave the room so could not do any further assessment with the patient however patient was moving all extremities and could tell me family members names. 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 Brain MRI. Routine EEG. Consider Neurosurgery evaluation Per family patient does not tolerate Rexulti and Benadryl so would recommend avoiding. Resume home medications once reconciled. Khalif Valerio MD PGY-1 Neurology [facility] 07/06/24 9:[address] Sofia This patient is being followed by the Neurology Resident service. Contact attending directly during these hours: Tuesday to 7:30-8:30 A.M. to Tuesday 12-1:00 p.m. Primary Neurology service: [phone] Consult neurology service: [phone] Resident Stroke Service: [phone] If the patient belongs to the Stroke [facility] service please contact the Stroke [facility] directly. Cosigned by Kelley Sofia MD at 07/06/2024 11:32 PM EST Associated attestation - Kelley Sofia MD - 07/06/2024 11:32 PM EST Kelley Sofia MD Neurology [facility] 07-06-2024 History and physical note Images from the original note were not included. [facility] History and Physical 07/06/2024 Patient Name: Noé Jeffery : 1965 Assessment Rapid onset Dementia with behavioral disturbances Colloid cyst stable on MRI per report History of hallucinations GERD Hypercholesterolemia History of perforated sigmoid colon status post surgical repair Plan Continue Seroquel and Aricept P.r.n. Pasha Attempt to obtain EKG to assess QT Avoid Benadryl as patient develops agitation aggressive behavior Consult neurology and Psychiatry, appreciate recommendations DVT prophylaxis: Heparin Code Status: Full Appropriate home medications will be resumed pending completion of medication reconciliation Plan of care discussed at length with patient at bedside Chief Complaint No chief complaint on file. HPI Noé Jeffery is a 58 y.o. male past medical history of early-onset dementia, GERD, perforated colon who presents to [facility] as a transfer from [place] for neurologic evaluation. History obtained from sister at bedside as patient is unable to provide and is aggressive and not participatory in history or review of systems. States that a few years ago he was diagnosed with early-onset dementia but since mid May he has rapidly declined in terms of his mental function. States he has gotten significantly more aggressive and hostile towards family. Endorses that he has auditory and visual hallucinations and night terrors. Per chart review only significant finding on workup so far as a colloid cyst that is stable. Past Medical History: Diagnosis Date GERD (gastroesophageal reflux disease) High cholesterol Perforated sigmoid colon (CMS-HCC) Past Surgical History: Procedure Laterality Date ARM EXPLORATION WITH REPAIR LACERATED ULNAR ARTERY Left 11/24/2019 Performed by Skyler Bowen MD at [facility] 3YEARS AGO COLOSTOMY CLOSURE Allergy: Diphenhydramine Prior to Admission medications Medication Sig Start Date End Date Taking? Authorizing Provider aspirin 81 mg Take 1 tablet (81 mg total) by mouth daily. Patient not taking: Reported on 05/06/2020 11/26/19 Katiha Gabriel APRN-CCIE FREESTYLE 28 gauge lancets 09/07/18 Not In System Ref Prov FREESTYLE LITE METER kit 09/08/18 Not In System Ref Prov FREESTYLE LITE STRIPS strip 09/07/18 Not In System Ref Prov omeprazole (PriLOSEC) 20 mg capsule Take 20 mg by mouth daily. Not In System Ref Prov oxyCODONE-acetaminophen (PERCOCET) 5-325 mg per tablet oxycodone-acetaminophen 5 mg-325 mg tablet Not In System Ref Prov simvastatin (ZOCOR) 10 mg tablet Take 10 mg by mouth nightly. Not In System Ref Prov Social History: reports that he has never smoked. He has never used smokeless tobacco. He reports that he does not drink alcohol and does not use drugs. Family History Problem Relation Age of Onset Breast cancer Sister Review of Systems A 10 point review was performed and otherwise negative except as mentioned in HPI Exam There were no vitals taken for this visit. No intake or output data in the 24 hours ending 07/06/24 0851 General appearance: alert, not oriented, in no apparent distress HEENT: atraumatic, EOM intact, sclera anicteric, no erythema Neck: supple, without lymphadenopathy Lungs: clear to auscultation bilaterally, no use of accessory muscles Heart: RRR, normal S1 and S2, no murmurs Abdomen: soft, non-distended, non-tender, normoactive bowel sounds Extremities: no edema, no rash Neurologic: no focal motor or sensory deficits noted Psychiatric: Aggressive mood Laboratory Data No results found for this or any previous visit (from the past 24 hours). Imaging Imaging has been reviewed in detail and can be seen in full via EMR. Nichol Heath MD [facility] 07-06-2024 History and physical note Images from the original note were not included. [facility] History and Physical 07/06/2024 Patient Name: Noé Jeffery : 1965 Assessment Rapid onset Dementia with behavioral disturbances Colloid cyst stable on MRI per report History of hallucinations GERD Hypercholesterolemia History of perforated sigmoid colon status post surgical repair Plan Continue Seroquel and Aricept P.r.n. Pasha Attempt to obtain EKG to assess QT Avoid Benadryl as patient develops agitation aggressive behavior Consult neurology and Psychiatry, appreciate recommendations DVT prophylaxis: Heparin Code Status: Full Appropriate home medications will be resumed pending completion of medication reconciliation Plan of care discussed at length with patient at bedside Chief Complaint No chief complaint on file. [facility] Noé Jeffery is a 58 y.o. male past medical history of early-onset dementia, GERD, perforated colon who presents to [facility] as a transfer from [place] for neurologic evaluation. History obtained from sister at bedside as patient is unable to provide and is aggressive and not participatory in history or review of systems. States that a few years ago he was diagnosed with early-onset dementia but since mid May he has rapidly declined in terms of his mental function. States he has gotten significantly more aggressive and hostile towards family. Endorses that he has auditory and visual hallucinations and night terrors. Per chart review only significant finding on workup so far as a colloid cyst that is stable. Past Medical History: Diagnosis Date GERD (gastroesophageal reflux disease) High cholesterol Perforated sigmoid colon (CMS-HCC) Past Surgical History: Procedure Laterality Date ARM EXPLORATION WITH REPAIR LACERATED ULNAR ARTERY Left 11/24/2019 Performed by Skyler Bowen MD at [facility] 3YEARS AGO COLOSTOMY CLOSURE Allergy: Diphenhydramine Prior to Admission medications Medication Sig Start Date End Date Taking? Authorizing Provider aspirin 81 mg Take 1 tablet (81 mg total) by mouth daily. Patient not taking: Reported on 05/06/2020 11/26/19 Kathia Gabriel APRN-EFRAIN FREESTYLE 28 gauge lancets 09/07/18 Not In System Ref Prov FREESTYLE LITE METER kit 09/08/18 Not In System Ref Prov FREESTYLE LITE STRIPS strip 09/07/18 Not In System Ref Prov omeprazole (PriLOSEC) 20 mg capsule Take 20 mg by mouth daily. Not In System Ref Prov oxyCODONE-acetaminophen (PERCOCET) 5-325 mg per tablet oxycodone-acetaminophen 5 mg-325 mg tablet Not In System Ref Prov simvastatin (ZOCOR) 10 mg tablet Take 10 mg by mouth nightly. Not In System Ref Prov Social History: reports that he has never smoked. He has never used smokeless tobacco. He reports that he does not drink alcohol and does not use drugs. Family History Problem Relation Age of Onset Breast cancer Sister Review of Systems A 10 point review was performed and otherwise negative except as mentioned in HPI Exam There were no vitals taken for this visit. No intake or output data in the 24 hours ending 07/06/24 0851 General appearance: alert, not oriented, in no apparent distress HEENT: atraumatic, EOM intact, sclera anicteric, no erythema Neck: supple, without lymphadenopathy Lungs: clear to auscultation bilaterally, no use of accessory muscles Heart: RRR, normal S1 and S2, no murmurs Abdomen: soft, non-distended, non-tender, normoactive bowel sounds Extremities: no edema, no rash Neurologic: no focal motor or sensory deficits noted Psychiatric: Aggressive mood Laboratory Data No results found for this or any previous visit (from the past 24 hours). Imaging Imaging has been reviewed in detail and can be seen in full via EMR. Nichol Heath MD documented in this encounter [facility] 06-26-2024 Note Progress Note-Nurse Attempted to call office due to family requesting additional lab work (PSA level). There was no answer at the office and no option to leave voicemail. Intrusted family to call later on today to talk to Dr. Graham's computer processing scheduler about obtained PSA level [facility] 03-09-2024 Telephone encounter Note I have refilled your prescription. A review of your chart shows that you have not had a follow up visit in more than 1 year. Refills for medications require at least 1 follow up visit per year. Please call: to schedule an appointment. Lisandra Gomez APRN.CNP [facility] 03-09-2024 Miscellaneous Notes I have refilled your prescription. A review of your chart shows that you have not had a follow up visit in more than 1 year. Refills for medications require at least 1 follow up visit per year. Please call: to schedule an appointment. Lisandra Gomez APRN.CNP documented in this encounter [facility] 01-11-2024 Hospital Discharge instructions Patient [...] treatment? Where to find more information The [place] Cancer Society: www.cancer.org [place] Urological Association: www.auanet.org Contact a health care [...] provider. Document Revised: 11/30/2021 Document Reviewed: 11/30/2021 [employer]mascreening Patient Education 2022 [employer]. Follow Up Care 12/23/2023 09:42:08 With:Santos PEÑA, Danni Portillo, URL, URO Address: When: Unknown Comments:Pending MRI, may proceed with fusion bx [facility] 01-11-2024 Note Urology Office/Clini c Note [...] repair with mesh. -[place] [facility] [place] -Will schedule MRI fusion transperineal prostate [...] Biopsy of pro (more content not included)... [facility] Comment on above: Result Comment: [...] Where to find more information ? The [place] Cancer Society: www.cancer.org ? [place] Urological Association: www.auanet.org Contact a health care [...] of the rectum. (more content not included)... [facility] 12-06-2023 Telephone encounter Note The following approved medication requests have been transmitted electronically. Requested Prescriptions Signed Prescriptions Disp Refills donepezil (ARICEPT) 5 mg tablet 90 tablet 0 Sig: Take 1 tablet by mouth once daily. Authorizing Provider: LORRI PLASCENCIA Ordering User: JESSICATANISHA YOUNG APRN.CNP [facility] 12-06-2023 Miscellaneous Notes The following approved medication requests have been transmitted electronically. Requested Prescriptions Signed Prescriptions Disp Refills donepezil (ARICEPT) 5 mg tablet 90 tablet 0 Sig: Take 1 tablet by mouth once daily. Authorizing Provider: LORRI PLASCENCIA Ordering User: TANISHA JEFFERS APRN.CNP documented in this encounter [facility] 03-07-2023 Miscellaneous Notes Summary: [facility] Baseline Interest A voicemail was left about participation in [facility] research study. documented in this encounter [facility] 02-09-2023 Miscellaneous Notes [employer]t message sent documented in this encounter [facility] 02-08-2023 Miscellaneous Notes Summary: [facility] Potential Participant A call was made to of patient to talk about interest in participating in [facility]. expressed interest in participating. The [facility] consent document was sent through email. A call will be made in a week to discuss enrollment. documented in this encounter [facility] 02-04-2023 Miscellaneous Notes Images from the original note were not included. documented in this encounter [facility] 02-02-2023 Miscellaneous Notes The following approved medication requests have been transmitted electronically. Requested Prescriptions Signed Prescriptions Disp Refills donepezil (ARICEPT) 5 mg tablet 90 tablet 1 Sig: TAKE 1 TABLET BY MOUTH EVERY DAY Authorizing Provider: LORRI PLASCENCIA Ordering User: KIMO PATE APRN.CNP documented in this encounter [facility] 01-13-2023 Miscellaneous Notes Patient returned call, requested a call back. I left a message explaining the 4% requirement from Medicare, and advised to contact Medicare if they have insurance questions. Advised to call me back if they had other concerns or questions. Sonal Weinstein APRN.EFRAIN documented in this encounter [facility] 12-03-2022 Miscellaneous Notes Faxed order, office notes, demographics, and sleep study to: DME name: [facility] fax: [phone] DME ph: documented in this encounter [facility] 12-02-2022 History of Present illness Narrative Images from the original note were not included. [facility] Sleep Disorders Center Follow up/ [...] will have a prescription sent to a [employer] ([employer] company - [employer] who will be calling you in the [...] for you. Roosevelt Merlos PGY-4 Sleep fellow [facility] I have supervised and discussed the patient case with the Sleep Medicine Fellow including interviewing the patient in person and have updated the electronic medical record where necessary. I agree with the history, physical, impression and recommendations as documented. Gera Cardona DO, CBSM, ABSM Clinical Staff Sleep Medicine [facility] Neurological [place] [facility] [address] [place] [address] I have communicated my name and active licensure. The patient's identity and physical location were verified at the time of this visit. Either the patient or their legal passenger relations representative has been informed of the risks and benefits of -- and alternatives to -- treatment through a remote evaluation and consents to proceed with the evaluation remotely. Interval history : Here for follow up for SHELBY follow up after starting PAP therapy. ; SLEEP APNEA Sleep apnea type : SHELBY, Most Recent Apnea-Hypopnea Index (AHI): 47.7 Treatment : PAP therapy DME: [employer] PAP History: Uses Bilevel PAP for 2 [...] or near accidents due to drowsy drivin [place] Sleepiness Scale 04/28/2022 Score Incomplete PROMIS CAT [...] repeat sleep study. All questions were answered. Sonal Weinstein APRN.EFRAIN I spent a total of 30 minutes on the date of the service which included preparing to see the patient, [id number] patient care, completing clinical documentation, obtaining and/or reviewing separately obtained history, counseling and educating the patient/family/caregiver, ordering medications, tests, or procedures, and communicating results to the patient/family/caregiver. documented in this encounter [facility] 11-17-2022 Instructions Lorri Plascencia MD - 11/17/2022 [...] are our recommendations: - Cognitive therapy at [facility]. - Aricept 5 mg daily with breakfast - Namenda 5 twice a day with breakfast and dinner. - Maintain physically, socially and cognitively healthy lifestyle. - Schedule in person report in February 2023. Please schedule next visit with Lorri Plascencia MD, PhD or Kimo Pate NP in person in February -March 2023 To schedule testing and visits please call: [phone]. If you have new, unexpected concerns in between visits please call our office at [phone] ( you will be able to reach one of our nurses). [facility] fax [phone] Ways to keep your brain healthy: Follow [...] Choose low mercury fish: salmon, sardines, anchovies, frenandez, halibut, scallops. Avoid fried fish and fish high in mercury (swordfish, Colombian sea martinez, orange roughy, ahi tuna, albacore [...] resources are: The Alzheimer's Association (web site: alz.org/[place]) available 24 hours a day, 7 days per week. Contact: Local: ; Toll free: [phone] [facility] (web site: Caregiver.org) MARLEEN Hawkins-- a secure online solution for quality information, support, and resources for family caregivers. Contact: Toll-free number: [phone] Alzheimers.gov - Find Alzheimer disease and related dementias information, resources, research and more. documented in this encounter [facility] 11-17-2022 History of Present illness Narrative Images from the original note were not included. Noé Jeffery [address] [place] [id number] November 17, 2022 [facility] Report Virtual Virtual visit with Patient and family members Chief complaint: poor memory, forgetfulness I have communicated my name and active licensure. The patient's identity and physical location were verified at the time of this visit. Either the patient or their legal passenger relations representative has been informed of the risks [...] that time. 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 He recalls forgetting a clip/tie for his gun one day. He also failed firearm safety training which is required every months. He states he is still able to perform ADLs at home and still able to work in his other job with [employer] systems. 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 Bradycardia. PLAN: - [facility] referral - Cognitive therapy at [facility]. - Aricept 5 mg daily with [...] . Lorri Plascencia MD, PhD Geriatric Psychiatry [facility] Brain Health CC: 1. No primary care provider on file., (fax) None documented in this encounter [facility] 10-12-2022 Nurse Note [facility] LUMBAR PUNCTURE NURSE DISCHARGE NOTE [...] Tanisha Jeffers RN documented in this encounter [facility] 10-12-2022 Instructions Miguelito Chicas APRN.CCIE - 10/12/2022 10:31 AM EDT Images from the original note were not included. [facility] Neurological [place] GOING HOME INSTRUCTIONS POST LP HEADACHE Prevention [...] as coffee or tea You can take [id number] Tylenol and/or Ibuprofen as directed INFECTION PREVENTION [...] from 8-5pm, please contact our office line [phone] and then hit 0 , please ask our secretary administrative assistant to page the provider who performed the spinal tap. -For nights or weekends, call or toll free and ask the depalletizer operator the page the Neurology resident on-call. 2. If your headache is unusually severe regardless of bedrest or lasts more than two days 3. If you develop a fever 4. If you notice inflammation, pus formation or clear drainage from the site of the needle puncture You may resume your usual activities after 48 hours. documented in this encounter [facility] 10-12-2022 History of Present illness Narrative [facility] PROCEDURE FOR DIAGNOSTIC TESTING Néo Jeffery, [id number] October 12, 2022, 8:57 AM INFORMED CONSENT [...] APRN.CNP Asst: Tanisha jeffers RN / Ana Escalera RN Relevant documentation, images, implants or special [...] October 12, 2022 documented in this encounter [facility] 08-12-2022 History of Present illness [...] Abs Lymph 1.00 - 4.00 k/uL 1.45 Smith% % 6.2 Abs Smith <0.87 k/uL 0.31 Eosin% % 0.6 Abs Eosin <0.46 k/uL 0.03 Baso% % 0.8 Abs Baso <0.11 k/uL 0.04 Immature Gran % % 0.2 IMMATURE GRANS (ABS) <0.10 k/uL <0.03 NRBC /100 WBC 0.0 Absolute nRBC <0.01 k/uL <0.01 [employer]TYPE [employer] Coordination Interventions: none Leah Mckeon RN documented in this encounter [facility] 08-11-2022 Instructions Lorri Plascencia MD [...] To schedule testing and visits please call: [phone]. If you have new, unexpected concerns in between visits please call our office at [phone] ( you will be able to reach one of our nurses). [facility] fax [phone] Ways to keep your brain healthy: Follow [...] fish and fish high in mercury (swordfish, Colombian sea martinez, orange roughy, ahi tuna, albacore [...] resources are: The Alzheimer's Association (web site: alz.org/[place]) available 24 hours a day, 7 days per week. Contact: Local: ; Toll free: [phone] [facility] (web site: Caregiver.org) MARLEEN Hawkins-- a secure online solution for quality information, support, and resources for family caregivers. Contact: Toll-free number: 631.635.8651 Alzheimers.gov - Find Alzheimer disease and related dementias information, resources, research and more. documented in this encounter [facility] 08-11-2022 History of Present illness Narrative Images from the original note were not included. Noé Jeffery [address] [place] [id number] August 11, 2022 Time: 2:35 PM Center [...] that time. 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 Lorri Plascencia MD, PhD Geriatric Psychiatry [facility] Brain Health CC: 1. No primary care provider on file., (fax) None documented in this encounter [facility] 07-22-2022 History of Present illness Narrative No show. Connection aborted after 15 min. of waiting online KGR documented in this encounter [facility] 05-07-2022 Miscellaneous Notes Radiology Service [...] DATA: Not applicable SIGNED BY: Nicole Huffman, carrot buncher May 07, 2022 1:31 PM documented in this encounter [facility] 04-30-2022 Instructions Roosevelt Merlos MD [...] will have a prescription sent to a [employer] ([employer]) company - [employer] who will be calling you in the next 1-2 weeks or so. Please call them directly or us if you do not hear from them in this time frame. - You should be eligible for new supplies approximately every 3-6 months, depending on your insurance coverage. - If your mask doesn't fit well, call the [employer] company before 30 days are up to get a new mask without an additional charge. - Insurance requires regular usage and periodic office follow ups for PAP therapy, to continue to cover supplies. - Follow up in 2 months in the office. Recommend scheduling this appointment now to ensure the best time for you. CMS Requirements - Your insurance requires a [id number] follow up visit within a 31-90 day [...] for BiPAP supplies. documented in this encounter [facility] 04-30-2022 History of Present illness Narrative Images from the original note were not included. [facility] Sleep Disorders Center New Patient Evaluation PATIENT NAME: Noé Jeffery DATE OF SERVICE: April 30, 2022 CONSULTING PROVIDER: Narciso Guerra [id number] [facility] [id number] REASON FOR CONSULT: Narciso Guerra sends the [...] or near accidents due to drowsy drivin [place] Sleepiness Scale 04/28/2022 Score Incomplete PROMIS CAT [...] will have a prescription sent to a [employer] ([employer]) company - [employer] who will be calling you in the next 1-2 weeks or so. Please call them directly or us if you do not hear from them in this time frame. - You should be eligible for new supplies approximately every 3-6 months, depending on your insurance coverage. - If your mask doesn't fit well, call the [employer] company before 30 days are up to get a new mask without an additional charge. - Insurance requires regular usage and periodic office follow ups for PAP therapy, to continue to cover supplies. - Follow up in 2 months in the office. Recommend scheduling this appointment now to ensure the best time for you. Roosevelt Merlos PGY-4 Sleep fellow [facility] I have supervised and discussed the patient case with the Sleep Medicine Fellow including interviewing the patient in person and have updated the electronic medical record where necessary. I agree with the history, physical, impression and recommendations as documented. Gera Cardona DO, CBSM, ABSM Clinical Staff Sleep Medicine [facility] Neurological [facility] [address] [place] [address] documented in this encounter [facility] 04-26-2022 History of Present illness [...] Program (KP): KP was not completed in [facility] by patient and accepted Study type: Split Study-Polysomnogram with CPAP titration Adverse Event: No (If yes create a new abstract) SERS Event: No Comments: Patient was advised to follow up with their ordering provider regarding test results [employer] April 25, 2022 Standing PSG Orders signed in the last 90 days None Future PSG Orders signed in the last 90 days Ordered Auth. provider POLYSOMNOGRAM (PSG) [[id number]] 04/22/22 Narciso Guerra MD Assoc. diagnoses: Cognitive [...] 8:46 PM 04/25/2022 documented in this encounter [facility] 04-22-2022 History of Present illness Narrative [facility] [place] AUDIOLOGIC EVALUATION REPORT Name: Noé Jeffery CCF#: [id number] Date of Service: 04/22/2022 Date of : 1965 Age: [age] year old Referred by: Narciso Guerra [address] [facility] [address] Referred for: Evaluation of the cause of disorder of hearing, tinnitus, or balance. Referral documented: In an order in [facility] Patient's major complaints: Noé reported he [...] evaluation of middle ear function. CPT code: 42522 RIGHT EAR: Tympanogram that was flat, with no identifiable peak and reduced TM mobility consistent with a conductive pathology (wax). LEFT EAR: Normal ME pressure and TM compliance (mobility). ACOUSTIC REFLEXES Description of procedure: This test is an objective measure of auditory and facial nerve pathways. CPT code: 62254, 48887 RIGHT EAR PROBE EAR: (ipsi right stimulus [...] bone conduction and speech recognition testing. CPT code:83418 RIGHT EAR: Hearing Sensitivity: Did not test. Word Recognition Score: Did not test. LEFT EAR: Hearing Sensitivity: Did not test. Word Recognition Score: Did not test. RECOMMENDATIONS Medical follow up for removal of bilateral impacted cerumen. Patient will see [facility] today. Hearing Test after #1. Juana Horta, CCC/A Clinical Vision Rehabilitation Therapist JIMENEZ Abbrev- iation Definition Degree of hearing sensitivity dB range WNL within normal limits WNL 0 - 20 SNHL sensorineural hearing loss Mild 20-40 CHL conductive hearing loss Moderate 40-55 MHL mixed hearing loss Moderately-Severe 55-70 WRS word recognition score Severe 70-90 ME middle ear Profound 90 + TM tympanic membrane documented in this encounter [facility] 04-22-2022 History of Present illness Narrative This note was created using [employer]. Subjective Noé Jeffery is a 56 year [...] externa of left ear, unspecified type Plan: qqvbihhf-iohshqpih-sagqnclwyygpu e (CORTISPORIN) 3.5-10,000-1 mg/mL-unit/mL-% otic suspension Use as directed Follow up with PCP if symptoms worsen or do not improve Brenda Blanco APRN.EFRAIN April 22, 2022 documented in this encounter [facility] 04-22-2022 Instructions Brenda Blanco APRN.EFRAIN [...] made for swimming. documented in this encounter [facility] 07-27-2020 Note MR#: [id number] [facility] Pt. Name: Noé Jeffery Admitted: 07/24/2020 [...] Ga MD Date Trans: 07/27/2020 03:32 A/patricia DN_[id number] cc: Jae Lopez M.D. [address] [place] [address] [facility] 07-24-2020 Note MR#: [id number] I [facility] Pt. Name: Noé Jeffery Admitted: 07/21/2020 [...] Ga MD Date Trans: 07/24/2020 10:00 A/patricia DN_[id number] cc: Jae Lopez M.D. [address] [place] [address] [facility] Evaluation + Plan note No data available for this section [facility] Evaluation + Plan note Future Appointments Appointment Date:06/26/2024 12:00:00 PM Scheduled Provider: Location:[facility] Appointment Type:Surgery FT Appointment Date:07/11/2024 11:15:00 AM Scheduled Provider:Danni Graham MD Location:[facility] Appointment Type:URO Office Visit [facility] Evaluation + Plan note Future Appointments Appointment Date:07/11/2024 11:15:00 AM Scheduled Provider:Danni Graham MD Location:[facility] Appointment Type:URO Office Visit [facility] Evaluation note Diagnosis Bilateral impacted cerumen- Primary Impacted cerumen Elevated blood pressure reading without diagnosis of hypertension Acute otitis externa of left ear, unspecified type [facility] Diagnosis Bilateral impacted cerumen- Primary Impacted cerumen documented in this encounter [facility] Diagnosis Sleep apnea, unspecified type- Primary Sleep hypopnea Other sleep disturbances [facility] Diagnosis SHELBY (obstructive sleep apnea)- Primary Obstructive sleep apnea (adult) (pediatric) documented in this encounter [facility] Diagnosis Memory loss [facility] Diagnosis Memory loss- Primary [facility] Diagnosis Memory loss- Primary Encounter for lumbar puncture documented [facility] this [facility]* Diagnosis Alzheimer's disease (HCC)- Primary Alzheimer's disease [facility] Diagnosis Obstructive sleep apnea- Primary Obstructive sleep apnea (adult) (pediatric) Primary central sleep apnea Hyperlipidemia, unspecified hyperlipidemia type documented in this encounter [facility]* Diagnosis Alzheimer's disease (HCC)- Primary Alzheimer's disease documented in this encounter [facility] Diagnosis Research study patient- Primary documented in this encounter [facility] Diagnosis Cognitive changes Other signs and symptoms involving cognition documented in this encounter [facility]* Diagnosis Alzheimer's disease (HCC) Alzheimer's disease documented in this encounter [facility] note* Diagnosis Alzheimer's disease (HCC) Alzheimer's disease documented in this encounter [facility] noteNo assessment information availableSelect [facility] [place] Work Phone: Evaluation note* Diagnosis Dementia with behavioral disturbance (CMS-HCC)- Primary Dementia with behavioral disturbance (CMS-HCC) Status post colostomy, follow-up exam (CMS-HCC) Follow-up examination, following unspecified surgery Altered mental status Status post colostomy, follow-up exam (CMS-HCC) Follow-up examination, following unspecified surgery [facility] No data available for this section [facility] [place] InstructionsNot on filedocumented in this encounter [facility] No data available for this section [facility] [place] reason for visit Narrative* Auth/Cert (Routine) Specialty Diagnoses / Procedures Referred By Naseem araujo Referred To Contact Diagnoses Dementia with behavioral disturbance (CMS-HCC) At risk for long QT syndrome Altered mental status Altered Mental Status Nichol Heath MD [address] [place] [address], [address] [place] [address] Phone: tel: fax: Referral ID Status Reason Start Date Expiration Date Visits Re quested Visits Authorized [id number] 1 1 [email or web address] Summary Purpose Family History No Family History [...] Found Advance Directives No Advanced Directives Records Found Date Activated Date Inactivated Comments 07/06/2024 8:48 AM Date Activated Date Inactivated Comments 11/24/2019 2:56 PM 11/25/2019 2:05 PM Date Activated Date Inactivated Comments 07/06/2024 8:48 AM Date Activated Date Inactivated Comments 11/24/2019 2:56 PM 11/25/2019 2:05 PM Reason for Referral Specialty Diagnoses / Procedures Referred By Contac t Referred To Contact Diagnoses Sleep apnea, unspecified type Sleep hypopnea Procedures CONSULT TO SLEEP MEDICINE - ADULT OFFICE/OUTPATIENT [facility] 60-74 MINUTES Narciso Guerra MD [address] [place] [address] Referral ID Status Reason Start Date Expiration Date Visits Requested Visits Authorized [id number] Authorized PCP Requested Referral 04/28/2022 04/28/2023 1 1 Specialty Diagnoses / Procedures Referred By Contac t Referred To Contact [facility] Diagnoses Alzheimer's disease (HCC) Procedures CONSULT TO SPEECH THERAPY OFFICE/OUTPATIENT [facility] 60-74 MINUTES Lorri Plascencia MD [address] [place] [address] [facility] [place] [address] Referral ID Status Reason Start Date Expiration Date Visits Requested Visits Authorized [id number] Pending Review Auto-Generat ed Referral 11/17/2022 11/17/2023 1 1 Specialty Diagnoses / Procedures Referred By Davidac t Referred To Contact MR IMAGING Diagnoses Cognitive changes Procedures MRI 3D POST PROCESSING 3D RENDERING W/INTERP&POSTPROC [place] [address] [place] [address] Mr Imaging [place] [address] Referral ID Status Reason Start Date Expiration Date V isits Requested Visits Authorized [id number] Closed Auto-Generate d Referral 04/22/2022 05/22/2023 1 1 Specialty Diagnoses / Procedures Referred By Davidac t Referred To Contact MR IMAGING Diagnoses Cognitive changes Procedures MRI BRAIN WO IVCON MRI BRAIN BRAIN STEM W/O CONTRAST MATERIAL Narciso Guerra MD [address] [place] [address] Mr Imaging [id number] Referral ID Status Reason Start Date Expiration Date V isits Requested Visits Authorized [id number] Closed Auto-Generate d Referral 04/22/2022 06/06/2022 1 [...] and content) DATE CREATED AUTHOR 04/15/2021 [facility] DATE CREATED AUTHOR AUTHOR'S ORGANIZ ATION 05/09/2022 [facility] DATE CREATED AUTHOR AUTHOR'S ORGANIZ ATION 10/28/2022 [facility] DATE CREATED AUTHOR AUTHOR'S ORGANIZ ATION 06/28/2024 [facility] DATE CREATED AUTHOR AUTHOR'S ORGANIZ ATION 07/01/2024 [facility] DATE CREATED AUTHOR AUTHOR'S ORGANIZ ATION 07/04/2024 [facility] DATE CREATED AUTHOR AUTHOR'S ORGANIZ ATION 07/11/2024 [facility] DATE CREATED AUTHOR AUTHOR'S ORGANIZ ATION 07/22/2024 [facility] DATE CREATED AUTHOR AUTHOR'S ORGANIZ ATION 07/28/2024 [facility] DATE CREATED AUTHOR AUTHOR'S ORGANIZ ATION 07/31/2024 [facility] DATE CREATED AUTHOR AUTHOR'S ORGANIZ ATION 08/05/2024 [facility] Source Comments (unrecognize d section and content) In the event this informatio n is protected by the Federal Confidentiality of Alcohol and Drug Abuse Patient Records regulations: The Federal rules restrict any use of the information to criminally investigate or prosecute any alcohol or drug abuse patient.[facility] Center[facility] the event this information is protected by the Federal Confidentiality of Alcohol and Drug Abuse Patient Records regulations: The Federal rules restrict any use of the information to criminally investigate or prosecute any alcohol or drug abuse patient.[facility] CenterIn the event this information is protected by the Federal Confidentiality of Alcohol and Drug Abuse Patient Records regulations: The Federal rules restrict any use of the information to criminally investigate or prosecute any alcohol or drug abuse patient.[facility] Center[facility] the event this information is protected by the Federal Confidentiality of Alcohol and Drug Abuse Patient Records regulations: The Federal rules restrict any use of the information to criminally investigate or prosecute any alcohol or drug abuse patient.[facility] CenterIn the event this information is protected by the Federal Confidentiality of Alcohol and Drug Abuse Patient Records regulations: The Federal rules restrict any use of the information to criminally investigate or prosecute any alcohol or drug abuse patient.[facility] CenterIn the event this information is protected by the Federal Confidentiality of Alcohol and Drug Abuse Patient Records regulations: The Federal rules restrict any use of the information to criminally investigate or prosecute any alcohol or drug abuse patient.[facility] CenterIn the event this information is protected by the Federal Confidentiality of Alcohol and Drug Abuse Patient Records regulations: The Federal rules restrict any use of the information to criminally investigate or prosecute any alcohol or drug abuse patient.[facility] CenterIn the event this information is protected by the Federal Confidentiality of Alcohol and Drug Abuse Patient Records regulations: The Federal rules restrict any use of the information to criminally investigate or prosecute any alcohol or drug abuse patient.[facility] CenterIn the event this information is protected by the Federal Confidentiality of Alcohol and Drug Abuse Patient Records regulations: The Federal rules restrict any use of the information to criminally investigate or prosecute any alcohol or drug abuse patient.[facility] CenterIn the event this information is protected by the Federal Confidentiality of Alcohol and Drug Abuse Patient Records regulations: The Federal rules restrict any use of the information to criminally investigate or prosecute any alcohol or drug abuse patient.[facility] CenterIn the event this information is protected by the Federal Confidentiality of Alcohol and Drug Abuse Patient Records regulations: The Federal rules restrict any use of the information to criminally investigate or prosecute any alcohol or drug abuse patient.[facility] CenterIn the event this information is protected by the Federal Confidentiality of Alcohol and Drug Abuse Patient Records regulations: The Federal rules restrict any use of the information to criminally investigate or prosecute any alcohol or drug abuse patient.[facility] CenterIn the event this information is protected by the Federal Confidentiality of Alcohol and Drug Abuse Patient Records regulations: The Federal rules restrict any use of the information to criminally investigate or prosecute any alcohol or drug abuse patient.[facility] CenterIn the event this information is protected by the Federal Confidentiality of Alcohol and Drug Abuse Patient Records regulations: The Federal rules restrict any use of the information to criminally investigate or prosecute any alcohol or drug abuse patient.[facility] CenterIn the event this information is protected by the Federal Confidentiality of Alcohol and Drug Abuse Patient Records regulations: The Federal rules restrict any use of the information to criminally investigate or prosecute any alcohol or drug abuse patient.[facility] CenterIn the event this information is protected by the Federal Confidentiality of Alcohol and Drug Abuse Patient Records regulations: The Federal rules restrict any use of the information to criminally investigate or prosecute any alcohol or drug abuse patient.[facility] CenterIn the event this information is protected by the Federal Confidentiality of Alcohol and Drug Abuse Patient Records regulations: The Federal rules restrict any use of the information to criminally investigate or prosecute any alcohol or drug abuse patient.[facility] CenterIn the event this information is protected by the Federal Confidentiality of Alcohol and Drug Abuse Patient Records regulations: The Federal rules restrict any use of the information to criminally investigate or prosecute any alcohol or drug abuse patient.[facility] CenterIn the event this information is protected by the Federal Confidentiality of Alcohol and Drug Abuse Patient Records regulations: The Federal rules restrict any use of the information to criminally investigate or prosecute any alcohol or drug abuse patient.[facility] CenterIn the event this information is protected by the Federal Confidentiality of Alcohol and Drug Abuse Patient Records regulations: The Federal rules restrict any use of the information to criminally investigate or prosecute any alcohol or drug abuse patient.[facility] CenterIn the event this information is protected by the Federal Confidentiality of Alcohol and Drug Abuse Patient Records regulations: The Federal rules restrict any use of the information to criminally investigate or prosecute any alcohol or drug abuse patient.[facility] CenterIn the event this information is protected by the Federal Confidentiality of Alcohol and Drug Abuse Patient Records regulations: The Federal rules restrict any use of the information to criminally investigate or prosecute any alcohol or drug abuse patient.[facility] CenterIn the event this information is protected by the Federal Confidentiality of Alcohol and Drug Abuse Patient Records regulations: The Federal rules restrict any use of the information to criminally investigate or prosecute any alcohol or drug abuse patient.[facility] CenterIn the event this information is protected by the Federal Confidentiality of Alcohol and Drug Abuse Patient Records regulations: The Federal rules restrict any use of the information to criminally investigate or prosecute any alcohol or drug abuse patient.[facility] CenterIn the event this information is protected by the Federal Confidentiality of Alcohol and Drug Abuse Patient Records regulations: The Federal rules restrict any use of the information to criminally investigate or prosecute any alcohol or drug abuse patient.[facility] CenterIn the event this information is protected by the Federal Confidentiality of Alcohol and Drug Abuse Patient Records regulations: The Federal rules restrict any use of the information to criminally investigate or prosecute any alcohol or drug abuse patient.[facility] CenterIn the event this information is protected by the Federal Confidentiality of Alcohol and Drug Abuse Patient Records regulations: The Federal rules restrict any use of the information to criminally investigate or prosecute any alcohol or drug abuse patient.[facility] CenterIn the event this information is protected by the Federal Confidentiality of Alcohol and Drug Abuse Patient Records regulations: The Federal rules restrict any use of the information to criminally investigate or prosecute any alcohol or drug abuse patient.[facility] CenterIn the event this information is protected by the Federal Confidentiality of Alcohol and Drug Abuse Patient Records regulations: The Federal rules restrict any use of the information to criminally investigate or prosecute any alcohol or drug abuse patient.[facility] Reason for Visit (unrecogniz ed section and content) Reason Comments Earwax Bilateral ear Specialty Diagnoses / Procedures Referred By Contac t Referred To Contact Diagnoses Bilateral hearing loss, unspecified hearing loss type Procedures HEARING TEST/AUDIOGRAM COMPRE AUDIOMETRY THRESHOLD [place] [address] [place] [address] [facility] [address] [place] [address] Referral ID Status Reason Start Date Expiration Date V isits Requested Visits Authorized [id number] Closed Auto-Generate d Referral 04/22/2022 07/21/2022 1 1 Reason Comments New Patient Evaluation Had sleep study d one. Specialty Diagnoses / Procedures Referred By Contac t Referred To Contact Diagnoses Sleep apnea, unspecified type Sleep hypopnea Procedures CONSULT TO SLEEP MEDICINE - ADULT OFFICE/OUTPATIENT ON LICENSE OF [facility] MDM 60-74 MINUTES Narciso Guerra MD [address] [place] [address] Referral ID Status Reason Start Date Expiration Date V isits Requested Visits Authorized [id number] Closed PCP Requested Referral 04/28/2022 04/28/2023 1 1 Reason Comments Memory Loss Specialty Diagnoses / Procedures Referred By Contac t Referred To Contact Neurology Diagnoses Memory loss Procedures CONSULT TO NEUROLOGY OFFICE/OUTPATIENT ON LICENSE OF [facility] MDM 60-74 MINUTES Narciso Guerra MD [address] [place] [address] Referral ID Status Reason Start Date Expiration Date V isits Requested Visits Authorized [id number] Closed PCP Requested Referral 06/22/2022 06/22/2023 1 [...] STEM W/O CONTRAST MATERIAL Narciso Guerra MD [facility] [place] [id number] [place] [address] Referral ID Status Reason Start Date Expiration Date V isits Requested Visits Authorized [id number] Closed Auto-Generate d Referral 04/22/2022 06/06/2022 1 1 Reason Onset Date Comments Refill Request 12/06/2023 Reason Onset Date Comments patient concern 07/12/2024 Reason Comments Patient Question Patient Care team informatio n (unrecognized section and content) Team Status: Active Member Role Status Dates Jae Lopez MD Primary Care Provider Active Team Status: Inactive Member Role Status Dates Danni Graham MD Attending Provider Active Start : March 15, 2024 End: March 15, 2024 Jae Lopez MD Primary Care Provider Active Start: March 15, 2024 End: March 15, 2024 Newsagent Relationship Specialty Start Date End Date Jae Lopez MD PCP - General 03/27/18 Newsagent Relationship Specialty Start Date End Date Jae Lopez MD PCP - General 03/27/18 Goals (unrecognized section and content) Goals may be documented in a n alternate section Scheduled Active and Recently Administ ered Medications (unrecognized section and content) Medication Order 07/20/2024 07/21/2024 07/22/2024 divalproex sprinkle (DEPAKOTE SPRINKLE) capsule 500 mg 500 mg, oral, Every 12 hours scheduled, First dose on Tue07/11/24 at 1500, HAZARDOUS - Handle with care. Look-alike/sound-alike medication - verify indication for use. Swallow whole or sprinkle on small amount of food. 0839 (Given - Provider: Lorna Faye)2254 (Given - Provider: Claribel Amato RN) 09 (Given - Provider: Neela Beaver RN)2137 (Given - Provider: Claribel Amato RN) 08 (Given - Provider: Ethel Martinez, MARCI)2100 (Due) donepeziL (ARICEPT) tablet 5 mg 5 mg, oral, Nightly, First dose on Tue07/06/24 at 2200, Look-alike/sound-alike medication - verify indication for use. 225 (Given - Provider: Claribel Amato RN) 2138 (Given - Provider: Claribel Amato RN) 0 (Due) doxycycline (VIBRAMYCIN) capsule 100 mg (COMPLETED) 100 mg, oral, 2 times daily, First dose on Tue07/17/24 at 0945, For 5 days, May give with meals to decrease GI upset. Administer with at least 8 ounces of water and have patient sit up for at least 30 minutes after taking to reduce the risk of esophageal irritation and ulceration., Indication: Skin and soft tissue infection 0840 (Given - Provider: Lorna Faye)2255 (Given - Provider: Claribel Amato RN) 09 (Given - Provider: Neela Beaver RN)2137 (Given - Provider: Claribel Amato RN) DULoxetine (CYMBALTA) DR capsule 20 mg 20 mg, oral, Daily, First dose on Tue07/06/24 at 0900, Look-alike/sound-alike medication - verify indication for use. Swallow whole-do not crush or chew. Although the efficiency expert does not recommend opening the capsule, the contents of capsule may be sprinkled on applesauce or in apple juice and swallowed (without chewing) immediately; do not sprinkle contents on chocolate pudding. 0840 (Given - Provider: Lorna Faye) 0941 (Given - Provider: Neela Beaver RN) 08 (Given - Provider: Ethel Martinez RN) enoxaparin (LOVENOX) syringe 40 mg 40 mg, subcutaneous, Daily, First dose on Tue07/17/24 at 1630, Look-alike/sound-alike medication - verify indication for use. 0841 (Given - Provider: Lorna Faye) 0939 (Given - Provider: Neela Beaver RN) 0825 (Given - Provider: Ethel Martinez, RN) melatonin (CIRCADIN) tablet 10 mg 10 mg, oral, Nightly, First dose (after last modification) on Tue07/20/24 at 2200 2256 (Given - Provider: Claribel Amato RN) 2138 (Given - Provider: Claribel Amato RN) 0 (Due) nicotine (NICODERM CQ) 21 mg/24 hr 1 patch 1 patch, transdermal, Administer over 24 Hours, Daily, First dose on Tue07/06/24 at 0900, Remove patch prior to MRI procedure as serious smith may occur- patch may be reapplied. Remove previous patch, if present, before applying new. 0900 (Not Given - Provider: Lorna Faye - Reason: Patient/family refused) 0900 (Not Given - Provider: Neela Beaver RN - Reason: Order parameters not met) 0900 (Not Given - Provider: Ethel Martinez RN - Reason: Patient/family refused) pantoprazole (PROTONIX) EC tablet 40 mg 40 mg, oral, Every morning before breakfast, First dose on Tue07/06/24 at 0900, Look-alike/sound-alike medication - verify indication for use. If patient is receiving enteral feeding, consider alternative PPI or continue IV pantoprazole until the delayed-release tablet can be taken orally, Indication: GERD 0842 (Given - Provider: Lorna Faye) 0943 (Given - Provider: Neela Beaver RN) 0826 (Given - Provider: Ethel Martinez, MARCI) QUEtiapine (SEROquel) tablet 150 mg(Linked Group 1) 150 mg, oral, Nightly, First dose (after last modification) on Tue07/12/24 at 2200, Look-alike/sound-alike medication - verify indication for use. 2255 (Given - Provider: Claribel Amato RN) 2138 (Given - Provider: Claribel Amato RN) 0 (Due) QUEtiapine (SEROquel) tablet 50 mg(Linked Group 1) 50 mg, oral, Daily, First dose (after last modification) on Annalee 07/12/24 at 0900, Look-alike/sound-alike medication - verify indication for use. 0840 (Given - Provider: Lorna Faye) 0942 (Not Given - Provider: Neela Beaver RN - Reason: Other - Comment: pill dropped)1103 (Given - Provider: Neela Beaver, RN) 0826 (Given - Provider: Ethel Martinez, MARCI) sodium chloride 0.9 % flush 3 mL 3 mL, intravenous, Every 12 hours scheduled, First dose on Tue07/06/24 at 0900 0900 (Not Given - Provider: Lorna Faye - Reason: Loss of IV access)2100 (Not Given - Provider: Claribel Amato RN - Reason: Loss of IV access) 0900 (Not Given - Provider: Neela Beaver RN - Reason: Loss of IV access)2100 (Not Given - Provider: Claribel Amato RN - Reason: Loss of IV access) 0900 (Not Given - Provider: Ethel Martinez RN - Reason: Loss of IV access)2100 (Due) PRN Medication Order 07/20/2024 07/21/2024 07/22/2024 acetaminophen (TYLENOL) tablet 650 mg 650 mg, oral, Every 4 hours PRN, headaches, Temperature greater than 38.3 C, Starting on Tue07/20/24 at 1249, [Warning: Total Acetaminophen not to exceed more than 4 grams (4000 mg) in 24 hours] dextrose (GLUTOSE) 40 % gel 15 g 15 g, oral, As needed, low blood sugar, blood glucose less than 70 mg/dL, Starting on Tue07/06/24 at 0840, If patient conscious and taking PO. If blood glucose is not greater than 70 mg/dL after initial treatment, repeat treatment. dextrose 50 % in water (D50W) 50% solution 25 mL 25 mL, intravenous, As needed, low blood sugar, blood glucose less than 70 mg/dL and unconscious or NPO with IV access, Starting on Tue07/06/24 at 0840, Push over 1-3 minutes STAT. If conscious and not NPO, immediately follow with meal tray or high protein (7 grams) snack if tray not available. If NPO, initiate 5% dextrose in water at 100 mL/hr and contact prescriber for additional orders. If blood glucose is not greater than 70 mg/dL after initial treatment, repeat treatment. VESICANT (RED) Warning: HYPERTONIC solution. glucagon HCL injection 1 mg 1 mg, intramuscular, As needed, low blood sugar, blood glucose less than 70 mg/dL and unconscious or NPO without IV access., Starting on Tue07/06/24 at 0840, If conscious and not NPO, immediately follow with meal tray or high protein (7Grams) snack if tray not available. If NPO, initiate IV 5% Dextrose/Water at 100 mL/hr and contact prescriber for additional orders. If blood glucose is not greater than 70 mg/dL after initial treatment, repeat treatment. ketorolac (TORADOL) injection 15 mg(Linked Group 2) 15 mg, intravenous, Every 6 hours PRN, headache, Starting on Tue07/20/24 at 1250, For 5 days, Look-alike/sound-alike medication - verify indication for use. Duration of therapy is not to exceed 5 days. Maximum recommended dose + 120mg/24 hours. magnesium sulfate IVPB 1000 mg/100 mL in dextrose 5% (10 mg/mL premix)(Linked Group 2) 1,000 mg, intravenous, at 100 mL/hr, Administer over 60 Minutes, As needed, headache, Starting on Tue07/20/24 at 1251, Infuse each gram over 60 minutes. ondansetron ODT (ZOFRAN ODT) disintegrating tablet 4 mg 4 mg, buccal, Every 8 hours PRN, nausea, vomiting, Starting on Tue07/06/24 at 0845 prochlorperazine (COMPAZINE) injection 5 mg(Linked Group 2) 5 mg, intravenous, Every 6 hours PRN, headache, Starting on Tue07/20/24 at 1250, When administered via IV Push, do not exceed 5 mg per minute sennosides-docusate sodium (SENOKOT-S) 8.6-50 mg 1 tablet 1 tablet, oral, Every 12 hours PRN, constipation, Starting on Tue07/06/24 at 0845 sodium chloride 0.9 % flush 3 mL 3 mL, intravenous, As needed, line care, before and after each intermittent use, Starting on Tue07/06/24 at 0840 sodium chloride 0.9 % flush bag 25 mL, intravenous, at 100 mL/hr, Administer over 15 Minutes, As needed, line care, line care after IVPB administration, Starting on Tue07/06/24 at 0840 ziprasidone (GEODON) injection 10 mg 10 mg, intramuscular, Every 6 hours PRN, agitation, Starting on Tue07/09/24 at 1442, Dilute with 1.2mL of sterile water for injection. 20mg dose = 1mL Maximum dose is 40 mg in 24 hours. Linked Groups Order Group 1: QUEtiapine (SEROquel) tablet 150 mgJump to med 150 mg, oral, Nightly, First dose (after last modification) on Tue07/12/24 at 2200, Look-alike/sound-alike medication - verify indication for use. And QUEtiapine (SEROquel) tablet 50 mgJump to med 50 mg, oral, Daily, First dose (after last modification) on Tue07/12/24 at 0900, Look-alike/sound-alike medication - verify indication for use. Group 2: prochlorperazine (COMPAZINE) injection 5 mgJump to med 5 mg, intravenous, Every 6 hours PRN, headache, Starting on Tue07/20/24 at 1250, When administered via IV Push, do not exceed 5 mg per minute And ketorolac (TORADOL) injection 15 mgJump to med 15 mg, intravenous, Every 6 hours PRN, headache, Starting on Tue07/20/24 at 1250, For 5 days, Look-alike/sound-alike medication - verify indication for use. Duration of therapy is not to exceed 5 days. Maximum recommended dose + 120mg/24 hours. And magnesium sulfate IVPB 1000 mg/100 mL in dextrose 5% (10 mg/mL premix)Jump to med 1,000 mg, intravenous, at 100 mL/hr, Administer over 60 Minutes, As needed, headache, Starting on Tue07/20/24 at 1251, Infuse each gram over 60 minutes. FOR RECORDS PERTAINING TO PATIENTS WHO ARE [...] BE BASED ON THE PRIMARY CLINICAL RECORDS. [employer] [facility]. provides no warranty or guarantee of the accuracy or completeness of information in this document.
[2024-08-09 23:32] VITALS: PULSE 79
[2024-08-09 23:40] VITALS: PULSE 80
[2024-08-09 23:44] LABS: PCO2 VBG 50.6 mmHg (40.0-52.0); pH VBG 7.389 (7.330-7.430)
[2024-08-09 23:47] LABS: Basophils Percent Auto 0.7 % (0.2-2.0); Eosinophils Absolute Auto 0.1 10^3/uL (0.0-0.7); Eosinophils Percent Auto 1.2 % (0.9-7.0); Hematocrit 42.3 % (42.0-54.0); Hemoglobin 13.2 g/dL (14.0-18.0); Immature Granulocytes Abs Auto 0.01 10^3/uL (0.00-0.03); Immature Granulocytes Pct Auto 0.2 % (0.0-0.5); Lymphocytes Absolute Auto 1.4 10^3/uL (1.2-3.8); Lymphocytes Percent Auto 33.7 % (20.5-60.0); Mean Corpuscular HGB Conc 31.2 g/dL (29.9-35.2); Mean Corpuscular Hemoglobin 24.3 pg (25.9-34.0); Mean Corpuscular Volume 77.9 fL (80.0-94.0); Mean Platelet Volume 10.5 fL (9.5-13.5); Monocytes Absolute Auto 0.3 10^3/uL (0.3-0.8); Monocytes Percent Auto 7.7 % (1.7-12.0); Neutrophils Absolute Auto 2.3 10^3/uL (1.4-6.5); Neutrophils Percent Auto 56.5 % (43.0-75.0); Platelet Count 93 10^3/uL (150-450); Red Blood Count 5.43 10^6/uL (4.70-6.10); Red Cell Distribution Width 14.6 % (11.0-15.0)
[2024-08-09] MEDS: DIAZEPAM 10 MG/2 ML SYRINGE 2 MG IV (23:51)
[2024-08-10] VITALS (24 sets, daily range): BP systolic 102–125; BP diastolic 72–92; PULSE 60–74; TEMP 36.1–37; O2SAT 96–98; BMI 28.0
[2024-08-10 00:09] LABS: Alanine Aminotransferase 24 U/L (16-63); Albumin Globulin Ratio 0.9; Alkaline Phosphatase 55 U/L (46-116); Anion Gap 8.5; Aspartate Amino Transferase 14 U/L (15-37); BUN Creatinine Ratio 31.8; Bilirubin Total 0.2 mg/dL (0.2-1.0); Calcium 8.2 mg/dL (8.5-10.1); Carbon Dioxide 30.8 mmol/L (21.0-32.0); Chloride 106 mmol/L (98-107); Estimated GFR (African America >60 (>=60 mL/min/1.73m^2); Estimated GFR (Non-African Ame >60 (>=60 mL/min/1.73m^2); Globulin 3.3 g/dL; Glucose 98 mg/dL (74-106); Potassium 4.3 mmol/L (3.5-5.1); Sodium 141 mmol/L (136-145); Thyroid Stimulating Hormone 5.293 uIU/mL (0.358-3.740); Total Protein 6.3 g/dL (6.4-8.2); Troponin I High Sensitivity 4.4 pg/mL (4.0-76.1)
[2024-08-10 00:14] LABS: Ethanol <3 mg/dL
[2024-08-10 00:17] LABS: Valproic Acid 87.7 ug/mL (50.0-100.0)
[2024-08-10] MEDS: 0.9 % SODIUM CHLORIDE 1,000 ML 1000 ML IV (00:29)
[2024-08-10 00:48] LABS: Free T4 0.72 ng/dL (0.76-1.46)
[2024-08-10 01:55] LABS: Bilirubin Urine NEGATIVE (NEGATIVE); Blood Urine TRACE-I (NEGATIVE); Clarity Urine CLEAR (CLEAR); Color Urine YELLOW (YELLOW); Glucose Urine UA NEGATIVE (NEGATIVE); Ketones Urine TRACE mg/dL (NEGATIVE); Leukocyte Esterase Urine NEGATIVE (NEGATIVE); Nitrite Urine NEGATIVE (NEGATIVE); Protein Urine NEGATIVE (NEG/TRACE); Specific Gravity Urine 1.015 (1.005-1.025); Urobilinogen Urine 0.2 EU/dL (0.2-1.0)
[2024-08-10 02:07] LABS: RBC Urine 0-2 #/HPF (0-2); WBC Urine 0-2 #/HPF (NONE SEEN)
[2024-08-10 02:08] LABS: Bacteria Urine NONE SEEN #/HPF (NONE SEEN); Cast Seen? NONE SEEN #/LPF (NONE SEEN); Crystals Seen? None Seen #/HPF (None Seen); Mucus Urine NONE SEEN (NONE SEEN); Squamous Epithelial Cell Urine NONE SEEN #/LPF (NONE/RARE)
[2024-08-10 02:09] LABS: Amphetamine Screen Urine NEGATIVE (NEGATIVE); Barbiturates Screen Urine NEGATIVE (NEGATIVE); Benzodiazepines Screen Urine NEGATIVE (NEGATIVE); Buprenorphine Screen Urine NEGATIVE (NEGATIVE); Cannabinoid Screen Urine NEGATIVE (NEGATIVE); Cocaine Screen Urine NEGATIVE (NEGATIVE); Methadone Screen Urine NEGATIVE (NEGATIVE); Methamphetamines Screen Urine NEGATIVE (NEGATIVE); Opiate Screen Urine NEGATIVE (NEGATIVE); Oxycodone Screen Urine NEGATIVE (NEGATIVE); Phencyclidine Screen Urine NEGATIVE (NEGATIVE); Tricyclic Antidepressant Urine POSITIVE (NEGATIVE)
--- OUTSIDE RECORDS SUMMARY | 2024-08-10 02:12 | XMS_ITS | CCD ---
Author Organization [facility] Care Team Providers Care Fire Prevention Research Engineer Name Role Phone NAYA IZAGUIRRE Admitting Unavailable JOHN JAE Primary Care Unavailable JOHN JAE Referring Unavailable NAYA IZAGUIRRE Attending Unavailable PA Procedure Practitioner Unavailab NAYA Wolf Surgeon Unavailable JAE LOPEZ Primary Care Unavailable SELF, REFERRED Referring Unavailable WILLAM IZAGUIRREIN Attending Unavailable ZINA JIASULTANAIN Admitting Unavailable PA Procedure Practitioner Unavailab WILLAM WolfIN Surgeon Unavailable Unavailable Primary Care Provider UnavailNARCISO Olsen Referring Unavailable Unavailable Primary Care Provider Unavailvirginia LOPEZ ., DR MILLER Attending Unavailable HOY ., DR MILLER Admitting Unavailable HOY ., DR MILLER Primary Care Unavailable HOY ., DR MILLER Consulting Unavailable ZIEBER, DR LUICE Kramer Consulting Unavailable HOY ., DR MILLER [...] Provider MD Jae Lopez Primary Care Provider [phone] MAITE MORRIS Attending Unavailable JAE LOPEZ M Primary Care Unavailable Danni Graham Admitting Unavailable Danni Graham Attending Unavailable Danni Graham. Referring Unavailable HOY, JAE M Primary Care Unavailable ERWIN PRICE Consulting Unavailable HOY, JAE M Referring Unavailable HOY, JAE M Primary Care Unavailable CHRISTIANOYJAE M Referring Unavailable HOY, JAE M Primary Care Unavailable HOY, JAE M Referring Unavailable HOY, AJE M Primary Care Unavailable HOY, JAE M Referring Unavailable HOY, JAE M Primary Care Unavailable HOY, JAE M Referring Unavailable HOY, JAE M Primary Care Unavailable HOY, JAE M Referring Unavailable HOY, JAE M Primary Care Unavailable Jae Lopez MD Primary Care Provider [phone] Danni Graham. Attending Unavailable Lue, Danni M. [...] Unavailable HOY, JAE M Primary Care Unavailable SDUHA, ARNULFO Referring Unavailable HOY, JAE M Primary [...] Date of Onset Reaction(s) Facility (1 source) 80764,00 Drug allergy (disorder) [address] [facility] Repository (4 sources) diphenhydrAMINE ; Translations: [DIPHENHYDRAMIN E] Drug Allergy 5 Abnormal Behavior [facility] Repository (1 source) No Known Medication Allergies; Translations: [No Known Medication Allergies] Propensity to adverse reactions (disorder) [facility] Repository Medications Current Medications Medication Drug [...] information. docusate sodium 50 mg / sennosides, mcfp 8.6 mg oral tablet (1 source) Start: [...] / neomycin 3.5 mg/ml / polymyxin b 75742 unt/ml otic suspension (3 sources) Aminoglycoside Antibacterial, [...] hydrochloride 5 mg oral tablet (17 sources) H-tixmno-M-aspartate Receptor Antagonist Start: 11-17-2022 take 1 tablet [...] Test Name Value Interpretation Reference Range Facility [facility] 07-20-[address] [facility] Telephone (YOSELYN) NOÉ JEFFERY ([id number]) 1965 M Date Time Provider Department 07/20/24 [...] our network. Referring MD will confirm with manager case management that referrals were sent to all 3. If the patient is discharged home or to SNF, we can potentially expedite an appointment with our PMR colleagues/TBI multidisciplinary clinic. I will alert Drs. Aguilar and Earl to the referral. Briana Mcdermott MD Allergies As of Date: 07/20/2024 (No Known Allergies) Date Reviewed: 10/12/2022 Reviewed by: Miguelito Chicas APRN.PUBLISHING SPECIALIST - Fully Assessed Prescriptions as of 07/20/2024 [...] Encounter Status:Closed by BRIANA MCDERMOTT on 07/20/24 [facility] Patient Letter FTon 2024 Patient [place] [facility] [place] [facility] 20, 2024DecNOÉ JEFFERY [address] [place] [id number] : 1965 Dear Mr. Jeffery, I am [...] Office Sincerely, Dr. Danni Graham [facility] [address] [place] [address] [facility] TANNER Virus Antibody Reflex to Inhibition Assayon 07-19-2024 Interpretation and review of laboratory results Abnormal Get [facility] TANNER virus Ab IA Ql Positive Abnormal [facility] Comment on above: NOTE Index interpretive criteria: [...] index.(1) (1) TYSABRI(natalizumab)US Prescribing Information Performed by: [employer] [address] [place] [address] Jessenia Bagley MD, PhD, TANNER Virus Index 2.94 High [facility] Comment on above: NOTE Performed by: [employer] [facility] [address] [place] [address] Jessenia Bagley MD, PhD, [facility] Marjorie 07-18-2024 CNPN Telephone (NEIND4) NOÉ JEFFERY ([id number]) 1965 M Date Time Provider Department 07/18/24 NARCISO GUERRA NEIND4 During your visit today, we recorded the following information about you: Benoit Gaby 07/18/2024 9:22 AM Signed Patient returned your call and can be reached at: Call patient at: on cell [phone] (home) [phone] (cell) Abbey Amato MA 07/18/2024 11:23 AM Signed Patient mailbox is full unable to leave message Nica Holland RN 07/19/2024 12:42 PM Signed Spoke with Dr Harmon (sp?) from [facility] regarding patient. Family is requesting transfer to a [facility] TBI center, inpatient. I advised that Dr Guerra cannot assist in this matter. Marichuy Roca, MARCI 07/20/2024 3:19 PM Addendum Spoke to , Kari. Pt is currently at [facility]. Pt is being denied an admit to rehab facility. I am unable to view notes from that hospital. Suggestion given to try [facility] as [facility] does not have a TBI clinic. Family will have to work with staff at [facility]. Verbalized understanding. Allergies As of Date: 07/18/2024 (No Known Allergies) Date Reviewed: 10/12/2022 Reviewed by: Miguelito Chicas, SYD.PUBLISHING SPECIALIST - Fully Assessed Reason for Visit: Patient Question [3617] Prescriptions as of 07/20/2024 - donepezil (ARICEPT) [...] Status:Closed by MARICHUY ROCA on 07/20/24 Normal [facility] BASIC METABOLIC PANLon 07-17 Anion gap [Moles/Vol] 4 mmol/L Low 5-15 [facility] Comment on above: Performed By: #### T HYR, CBC, BMP, #### [facility] ([id number]) [address], [address] [place] [address] Calcium [Mass/Vol] 8.8 mg/dL Normal 8.5-10.5 [facility] Comment on above: Performed By: #### T HYR, CBC, BMP, 2776-06, #### [facility] ([id number]) [address], [address] [place] [address] Chloride [Moles/Vol] 104 mmol/L Normal 98-109 [facility] Comment on above: Performed By: #### T HYR, CBC, BMP, #### [facility] ([id number]) [address], [address] [place] [address] CO2 [Moles/Vol] 33 mmol/L High 22-32 [facility] Comment on above: Performed By: #### T HYR, CBC, BMP, 2776-06, #### [facility] ([id number]) [address], [address] [place] [address] Creatinine [Mass/Vol] 0.95 mg/dL Normal 0.60-1.30 [facility] Comment on above: Result Comment: METH OD TRACEABLE TO IDMS STANDARD Performed By: #### T HYR, CBC, BMP, 2776-06, #### [facility] ([id number]) [address] [place] [address] eGFR (CKD-EPI) NON-RACE DEPENDENT >90 Normal >59 [facility] Comment on above: Result Comment: Reported eGFR is based on the CKD-EPI 2020 equation that does not use a race coefficient. Performed By: #### T HYR, CBC, BMP, 2776-06, #### [facility] ([id number]) [address], [address] [place] [address] Glucose [Mass/Vol] 97 mg/dL Normal 65-99 [facility] Comment on above: Performed By: #### T HYR, CBC, BMP, 2776-06, #### [facility] ([id number]) [address] [place] [address] Potassium [Moles/Vol] 4.3 mmol/L Normal 3.5-5.0 [facility] Comment on above: Performed By: #### T HYR, CBC, BMP, 2776-06, #### [facility] ([id number]) [address], [address] [place] [address] Sodium [Moles/Vol] 141 mmol/L Normal 134-146 [facility] Comment on above: Performed By: #### T HYR, CBC, BMP, 2776-06, #### [facility] ([id number]) [address] [place] [address] Urea nitrogen [Mass/Vol] 20 mg/dL Normal 5-23 [facility] Comment on above: Performed By: #### T HYR, CBC, BMP, 2776-06, #### [facility] ([id number]) [address], [address] [place] [address] Basic Metabolic Panelon - Anion gap [Moles/Vol] 4 mmol/L Low 5 - 15 mmol/L [facility] Calcium [Mass/Vol] 8.8 mg/dL 8.5 - 10. 5 mg/dL [facility] Chloride [Moles/Vol] 104 mmol/L 98 - 10 9 mmol/L [facility] CO2 [Moles/Vol] 33 mmol/L High 22 - 32 mmol/L [facility] Creatinine [Mass/Vol] 0.95 mg/dL 0.60 - 1.30 mg/dL [facility] Comment on above: METHOD TRACEABLE TO IDIL STANDARD eGFR (CKD-EPI)non-race dependent - PINF [facility] Comment on above: Reported eGFR is based on the CKD-EPI 2020 equation that does not use a race coefficient. Glucose [Mass/Vol] 97 mg/dL 65 - 99 mg/dL [facility] Interpretation and review of laboratory results Abnormal [facility] Potassium [Moles/Vol] 4.3 mmol/L 3.5 - 5.0 mmol/L [facility] Sodium [Moles/Vol] 141 mmol/L 134 - 146 mmol/L [facility] Urea nitrogen [Mass/Vol] 20 mg/dL 5 - 23 mg/dL [facility] CBC AND AUTO DIFFon 07-17-19 25 ABSOLUTE BASOPHIL 0.0 X10E9/L Normal 0.0-0.2 [facility] Comment on above: Performed By: #### T HYR, CBC, BMP, 2776-06, 92082-9 #### [facility] ([id number]) [address], [address] [place] [address] ABSOLUTE NEUTROPHIL 2.5 X10E9/L Normal 1.5-6.6 [facility] Comment on above: Performed By: #### T HYR, CBC, BMP, 2776-06, #### [facility] ([id number]) [address], [address] [place] [address] Basophils/100 WBC (Bld) 0.6 % Normal [facility] Comment on above: Performed By: #### T HYR, CBC, BMP, 2776-06, #### [facility] ([id number]) [address] [place] [address] Eosinophils (Bld) [#/Vol] 0.1 10*3/uL Normal 0.0-0.4 [facility] Comment on above: Performed By: #### T HYR, CBC, BMP, 2776-06, #### [facility] ([id number]) [address], [address] [place] [address] Eosinophils/100 WBC (Bld) 1.9 % Normal [facility] Comment on above: Performed By: #### T HYR, CBC, BMP, 2776-06, #### [facility] ([id number]) [address] [place] [address] Erythrocyte distribution width (RBC) [Ratio] 15.8 % High 11.5-15.0 [facility] Comment on above: Performed By: #### T HYR, CBC, BMP, 2776-06, #### [facility] ([id number]) [address], [address] [place] [address] Hematocrit (Bld) [Volume fraction] 41.8 % Normal 39-49 [facility] Comment on above: Performed By: #### T HYR, CBC, BMP, 2776-06, #### [facility] ([id number]) [address], [address] [place] [address] Hemoglobin (Bld) [Mass/Vol] 13.9 g/dL Normal 13.0-17.0 [facility] Comment on above: Performed By: #### T HYR, CBC, BMP, 2776-06, #### [facility] ([id number]) [address] [place] [address] Lymphocytes (Bld) [#/Vol] 1.2 10*3/uL Normal 1.0-3.5 [facility] Comment on above: Performed By: #### T HYR, CBC, BMP, 2776-06, #### [facility] ([id number]) [address] [place] [address] Lymphocytes/100 WBC (Bld) 29.7 % Normal [facility] Comment on above: Performed By: #### T HYR, CBC, BMP, 2776-06, #### [facility] ([id number]) [address] [place] [address] MCH (RBC) [Entitic mass] 25.1 pg Low 27-34 [facility] Comment on above: Performed By: #### T HYR, CBC, BMP, 2776-06, #### [facility] ([id number]) [address] [place] [address] MCHC (RBC) [Mass/Vol] 33.2 g/dL Normal 32-36 [facility] Comment on above: Performed By: #### T HYR, CBC, BMP, 2776-06, #### [facility] ([id number]) [address], [address] [place] [address] MCV (RBC) [Entitic vol] 76 fL Low 80-100 [facility] Comment on above: Performed By: #### T HYR, CBC, BMP, 2776-06, #### [facility] ([id number]) [address], [address] [place] [address] Monocytes (Bld) [#/Vol] 0.3 10*3/uL Normal 0-0.9 [facility] Comment on above: Performed By: #### T HYR, CBC, BMP, 2776-06, #### [facility] ([id number]) [address] [place] [address] Monocytes/100 WBC (Bld) 8.2 % Normal [facility] Comment on above: Performed By: #### T HYR, CBC, BMP, 2776-06, #### [facility] ([id number]) [address] [place] [address] Neutrophils/100 WBC (Bld) 59.6 % Normal [facility] Comment on above: Performed By: #### T HYR, CBC, BMP, 2776-06, #### [facility] ([id number]) [address] [place] [address] Platelet mean volume (Bld) [Entitic vol] 7.7 fL Normal 7-12 [facility] Comment on above: Performed By: #### T HYR, CBC, BMP, 2776-06, #### [facility] ([id number]) [address], [address] [place] [address] Platelets (Bld) [#/Vol] 180 10*3/uL Normal 150-450 [facility] Comment on above: Performed By: #### T HYR, CBC, BMP, 2776-06, #### [facility] ([id number]) [address], [address] [place] [address] RBC COUNT 5.54 X10E12/L Normal 4.10-5.70 [facility] Comment on above: Performed By: #### T HYR, CBC, BMP, 7-, #### [facility] ([id number]) [address], [address] [place] [address] WBC (Bld) [#/Vol] 4.1 10*3/uL Normal 4.0-11.0 [facility] Comment on above: Performed By: #### T HYR, CBC, BMP, 7-, #### [facility] ([id number]) [address] [place] [address] CBC auto differentialon 06-21 Basophils (Bld) [#/Vol] 0 10*3/uL [facility] Basophils/100 WBC (Bld) 0.6 % [facility] Eosinophils (Bld) [#/Vol] 0.1 10*3/uL [facility] Eosinophils/100 WBC (Bld) 1.9 % [facility] Erythrocyte distribution width (RBC) [Ratio] 15.8 % High 11.5 - 15.0 % [facility] Hematocrit (Bld) [Volume fraction] 41.8 % 39 - 49 % [facility] Hemoglobin (Bld) [Mass/Vol] 13.9 g/dL 13.0 - 17.0 g/dL [facility] Interpretation and review of laboratory results Abnormal [facility] Lymphocytes (Bld) [#/Vol] 1.2 10*3/uL [facility] Lymphocytes/100 WBC (Bld) 29.7 % [facility] MCH (RBC) [Entitic mass] 25.1 pg Low 27 - 34 pg [facility] MCHC (RBC) [Mass/Vol] 33.2 g/dL 32 - 3 6 g/dL [facility] MCV (RBC) [Entitic vol] 76 fL Low 80 - 100 fL [facility] Monocytes (Bld) [#/Vol] 0.3 10*3/uL [facility] [...] CNPNon 07-17-2024 CNPN Telephone (NEIND4) NOÉ JEFFERY ([id number]) 1965 M Date Time Provider Department 07/17/24 NARCISO GUERRA During your visit today, we recorded the following information about you: Laboy Gaby 07/17/2024 2:37 PM Signed Pt keila and is in [facility] and is requesting help with getting pt transferred to a [facility] facility Please call pts [phone] Nica Holland, MARCI 07/18/2024 8:58 AM Signed -LVMTCB We are unable to assist in this matter. Pt last seen 04/2022 Allergies As of Date: 07/17/2024 (No Known Allergies) Date Reviewed: 10/12/2022 Reviewed by: Miguelito Chicas APRN.PUBLISHING SPECIALIST - Fully Assessed Reason for Visit: Patient Question [0671] Prescriptions as of 07/18/2024 - donepezil (ARICEPT) [...] Status:Closed by NICA HOLLAND on 07/18/24 Normal [facility] Encephalopathy - Autoimmune Eval, RUSSELLon 07-17-2024 Encephalopathy autoimmune Ab panel (CSF) SEE COMMENTS 07/17/2024 05:00 PM [facility] Comment on above: NOTE Test Result Flag [...] developed and its performance characteristics determined by [facility] in a manner consistent with CLIA requirements. This test has not been cleared or approved by the U.S. Food and Drug Administration. Amphiphysin Ab, CSF Negative Negative ADDITIONAL INFORMATION This test was developed and its performance characteristics determined by [facility] in a manner consistent with CLIA requirements. This test has not been cleared or approved by the U.S. Food and Drug Administration. LETYA-1, CSF Negative Negative ADDITIONAL INFORMATION This test was developed and its performance characteristics determined by [facility] in a manner consistent with CLIA requirements. This test has not been cleared or approved by the U.S. Food and Drug Administration. MARKEL-1, CSF Negative Negative ADDITIONAL INFORMATION This test was developed and its performance characteristics determined by [facility] in a manner consistent with CLIA requirements. This test has not been cleared or approved by the U.S. Food and Drug Administration. MARKEL-2, CSF Negative Negative ADDITIONAL INFORMATION This test was developed and its performance characteristics determined by [facility] in a manner consistent with CLIA requirements. This test has not been cleared or approved by the U.S. Food and Drug Administration. MARKEL-3, CSF Negative Negative ADDITIONAL INFORMATION This test was developed and its performance characteristics determined by [facility] in a manner consistent with CLIA requirements. This test has not been cleared or approved by the U.S. Food and Drug Administration. CASPR2-IgG CBA, CSF Negative Negative ADDITIONAL INFORMATION This test was developed and its performance characteristics determined by [facility] in a manner consistent with CLIA requirements. This test has not been cleared or approved by the U.S. Food and Drug Administration. CRMP-5-IgG, CSF Negative Negative ADDITIONAL INFORMATION This test was developed and its performance characteristics determined by [facility] in a manner consistent with CLIA requirements. This test has not been cleared or approved by the U.S. Food and Drug Administration. DPPX Ab CBA, CSF Negative Negative ADDITIONAL INFORMATION This test was developed and its performance characteristics determined by [facility] in a manner consistent with CLIA requirements. This test has not been cleared or approved by the U.S. Food and Drug Administration. NICOLE-B-R Ab CBA, CSF Negative Negative ADDITIONAL INFORMATION This test was developed and its performance characteristics determined by [facility] in a manner consistent with CLIA requirements. This test has not been cleared or approved by the U.S. Food and Drug Administration. GAD65 Ab Assay, CSF 0.00 nmol/L <= 0.02 ADDITIONAL INFORMATION This test was developed and its performance characteristics determined by [facility] in a manner consistent with CLIA requirements. This test has not been cleared or approved by the U.S. Food and Drug Administration. GFAP IFA, CSF Negative Negative ADDITIONAL INFORMATION This test was developed and its performance characteristics determined by [facility] in a manner consistent with CLIA requirements. This test has not been cleared or approved by the U.S. Food and Drug Administration. mGluR1 Ab IFA, CSF (more content not included)... Encephalopathy autoimmune Ab panel (CSF)on 07-17-2024 [facility] MAGNESIUMon 07-17-2024 Magnesium [Mass/Vol] 2.2 mg/dL Normal 1.8-2.6 [facility] Comment on above: Performed By: #### T HYR, CBC, BMP, 2777-1, 02561-5 #### [facility] ([id number]) [address] [place] [address] Magnesiumon 07-17-2024 Magnesium [Mass/Vol] 2.2 mg/dL 1.8 - 2 .6 mg/dL [facility] No Panel Informationon 07-17 [facility] Bacteria identified Cx Nom ( CSF)on 07-15-2024 Microscopic observation Gram stain Nom (Unsp spec) WHITE BLOOD CELLS PRESENT [facility] Microscopic observation Gram stain Nom (Unsp spec) NO ORGANISMS SEEN [facility] Microscopic observation Gram stain Nom (Unsp spec) ON CONCENTRATED SMEAR [facility] Service comment (Unsp spec) [Interp] NO GROWTH 5 DAYS [facility] Flow Cytometry CSFon 025 Flow cytometry specialist review Ramone (Unsp spec) [Interp] SEE SEPARATE REPORT, REVIEWED BY PATHOLOGIST [facility] Flow cytometry specialist re view Ramone (Unsp spec) [Interp]on 2024 [facility] Lyme ETL SOFTWARE ENGINEER Infection IgG w/ An tibody Index Reflex, CSF and Serumon 07-13-2024 Pathologist interpretation (Bld) [Interp] See Note [facility] Comment on above: NOTE No antibodies to [...] developed and its performance characteristics determined by [facility] in a manner consistent with CLIA requirements. This test has not been cleared or approved by the U.S. Food and Drug Administration. Reference Lab Test ID Negative Negative [facility] Reference Lab Test ID See Note [facility] Comment on above: NOTE CSF screen was negative for IgG-class antibodies to Lyme Borrelia species. Testing for IgG-class antibodies to Borrelia in serum is not indicated and was not performed. Test Performed by: [facility] [address] [place] [address] [employer] Consultant: Eduardo Calrk Ph.D.; CLIA# [id number] [employer] [facility] Cytologyon 07-11-2024 [facility] [address] [place] [address] Cytology Consultation Patient Name:NOÉ JEFFERY:1965 (Age: 58)Gender:MTaken:06/21Reported:2024 16:49Physician(s):Shun Haley M.D. ([phone])Copy To:Quinton Harrell M.D. Rec. #:[id number]: #[id number] Final Cytologic Diagnosis Cerebrospinal fluid: No malignant cells identified. 07/11/2024 Interpretation performed [place] [address], License number: [id number].Electro nically Signed Out By Derick Lorenz MD Additional Report(s): Flow Cytometry-Surg/BM/NG Date Reported: 07/13/2024 No flow cytometric abnormalities. The specimen is hypocellular with a sparse lymphoid component. Immunophenotypic analysis of the lymphoid cells demonstrates a mixed population of few phenotypically unremarkable T-cells and polyclonal B-cells. No monoclonal lymphoid population is detected. Immunophenotyping antibodies tested: CD3, CD4, CD5, CD7, CD8, CD19, CD20, CD45, [place], and Lambda. Immunophenotyping Comment: Immunophenotyping has been used in this diagnostic evaluation. This test was developed and its performance characteristics determined by the [employer] [facility] Department. It has not been [...] perform high-complexity clinical testing. Interpretation performed at [facility], [address] [place] [address], License number: [id number]. 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 Also received is one cytospin slide from Hematology. Source of Specimen Cerebrospinal fluid Non SLOPE HOIST OPERATOR ThinPrep, Cytospin Slide Fee Code(s): 1; 76765, [address] [facility] IgG synthesis rate Calc (S+C SF) [Mass/Time]on 07-11-2024 CSF IgG Index Profile SEE COMMENTS 07/11/2024 12:55 PM [facility] Comment on above: NOTE Test Result Flag [...] mg/dL 3500 - 5000 Test Performed by: [address] [address] [employer] Consultant: Eduardo Clark Ph.D.; CLIA# [id number] Test Performed by: [address] [address] [employer] Consultant: Eduardo Clark Ph.D.; CLIA# [id number] [facility] Reagin Ab VDRL Ql (CSF)on [facility] VDRL, Spinal Fluidon 025 Reagin Ab VDRL Ql (CSF) Negative Negative [facility] Comment on above: NOTE Test Performed by: [facility] - [address] [address] [employer] Consultant: Eduardo Clark Ph.D.; CLIA# [id number] 14-3-3 Protein Tau, Total, C SFon 07-10-2024 Creutzfeldt-Osei Disease SEE NOTE Normal [facility] Comment on above: Result Comment: NOTE [...] thorough examination of autopsy brain tissue. The [facility] is able to offer a no-cost autopsy for this patient. Autopsy can help to delineate whether prion disease is sporadic, acquired or genetic in etiology. [facility] staff ([phone]) are available to work with healthcare providers and the patient's family to plan an autopsy, if desired. Reviewed and Approved By: Tia Weinberg, PhD Performed By: [facility] 2084 [facility] Room [address] [id number] Performed By: #### T HYR, CBC, BMP, 2777-1, 93696-5 #### [facility] ([id number]) [address], [address] [place] [address] CSF CULTUREon 07-10-2024 Bacteria identified Cx Nom (CSF) GRAM STAIN WHITE BLOOD CELLS PRESENT NO ORGANISMS SEEN ON CONCENTRATED SMEAR CULTURE RESULTS NO GROWTH 5 DAYS Normal [facility] Comment on above: Performed By: #### T HYR, CBC, BMP, 2777-, 36941-1 #### [facility] ([id number]) [address] [place] [address], [address] [place] [address] CSF spinal fluid cell counto n 07-10-2024 Clarity (CSF) CLEAR [facility] Color (CSF) COLORLESS [facility] Color (Spun CSF) COLORLESS [facility] Differential panel (Dial fld) NUCLEATED CELLS <5/uL; DIFF NOT TESTED [facility] Interpretation and review of laboratory results Abnormal [facility] Laboratory comment Ramone (Report) TUBE 3 [facility] Nucleated cells Manual cnt (CSF) [#/Vol] 0.001 10*3/uL 0 - 5 /uL [facility] RBC Manual cnt (CSF) [#/Vol] 48 /uL High 0 - 1 /uL [facility] Csf total proteinon 07-10-19 25 Protein (CSF) [Mass/Vol] 45 mg/dL 15 - 45 mg/dL [facility] Cytologyon 07-10-2024 Cytology Normal [facility] Comment on above: Result Comment: [facility] [address] [place] [address] Cytology Consultation Patient Name:NOÉ JEFFERY:1965 (Age: 58)Gender:MTaken:07/10/2024Reported:07/11/2024 16:49Physician(s):Arnulfo Haley M.D. ([phone])Copy To:Lonnie Baker M.D. Nichol Heath M.D. Rec. #:[id number]: #[id number] Final Cytologic Diagnosis Cerebrospinal fluid: No malignant cells identified. gr/07/11/2024 [facility], [address] [place] [address], License number: [id number].Electronically Signed Out By Derick Lorenz MD Additional Report(s): Flow Cytometry-Surg/BM/NG Date Reported: 07/13/2024 No flow cytometric abnormalities. The specimen is hypocellular with a sparse lymphoid component. Immunophenotypic analysis of the lymphoid cells demonstrates a mixed population of few phenotypically unremarkable T-cells and polyclonal B-cells. No monoclonal lymphoid population is detected. Immunophenotyping antibodies tested: CD3, CD4, CD5, CD7, CD8, CD19, CD20, CD45, [place], and Lambda. Immunophenotyping Comment: Immunophenotyping has been used in this diagnostic evaluation. This test was developed and its performance characteristics determined by the [facility]. It has not been [...] perform high-complexity clinical testing. Interpretation performed at [facility], [address] [place] [address], License number: [id number]. 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 Also received is one cytospin slide from Hematology. Source of Specimen Cerebrospinal fluid Non SLOPE HOIST OPERATOR ThinPrep, Cytospin Slide Fee Code(s): 1; 54148, 03218 Encephalopathy autoimmune Ab panel (CSF)on 07-10-2024 ENCEPHALOPATHY-AUTOIM MUNE EVAL - CSF SEE COMMENTS 07/17/2024 05:00 PM Normal [facility] Comment on above: Result Comment: NOTE [...] developed and its performance characteristics determined by [facility] in a manner consistent with CLIA requirements. This test has not been cleared or approved by the U.S. Food and Drug Administration. Amphiphysin Ab, CSF Negative Negative ADDITIONAL INFORMATION This test was developed and its performance characteristics determined by [facility] in a manner consistent with CLIA requirements. This test has not been cleared or approved by the U.S. Food and Drug Administration. AGNA-1, CSF Negative Negative ADDITIONAL INFORMATION This test was developed and its performance characteristics determined by [facility] in a manner consistent with CLIA requirements. This test has not been cleared or approved by the U.S. Food and Drug Administration. MARKEL-1, CSF Negative Negative ADDITIONAL INFORMATION This test was developed and its performance characteristics determined by [facility] in a manner consistent with CLIA requirements. This test has not been cleared or approved by the U.S. Food and Drug Administration. MARKEL-2, CSF Negative Negative ADDITIONAL INFORMATION This test was developed and its performance characteristics determined by [facility] in a manner consistent with CLIA requirements. This test has not been cleared or approved by the U.S. Food and Drug Administration. MARKEL-3, CSF Negative Negative ADDITIONAL INFORMATION This test was developed and its performance characteristics determined by [facility] in a manner consistent with CLIA requirements. This test has not been cleared or approved by the U.S. Food and Drug Administration. CASPR2-IgG CBA, CSF Negative Negative ADDITIONAL INFORMATION This test was developed and its performance characteristics determined by [facility] in a manner consistent with CLIA requirements. This test has not been cleared or approved by the U.S. Food and Drug Administration. CRMP-5-IgG, CSF Negative Negative ADDITIONAL INFORMATION This test was developed and its performance characteristics determined by [facility] in a manner consistent with CLIA requirements. This test has not been cleared or approved by the U.S. Food and Drug Administration. DPPX Ab CBA, CSF Negative Negative ADDITIONAL INFORMATION This test was developed and its performance characteristics determined by [facility] in a manner consistent with CLIA requirements. This test has not been cleared or approved by the U.S. Food and Drug Administration. NICOLE-B-R Ab CBA, CSF Negative Negative ADDITIONAL INFORMATION This test was developed and its performance characteristics determined by [facility] in a manner consistent with CLIA requirements. This test has not been cleared or approved by the U.S. Food and Drug Administration. GAD65 Ab Assay, CSF 0.00 nmol/L <= 0.02 ADDITIONAL INFORMATION This test was developed and its performance characteristics determined by [facility] in a manner consistent with CLIA requirements. This test has not been cleared or approved by the U.S. Food and Drug Administration. GFAP IFA, CSF Negative Negative ADDITIONAL INFORMATION This test was developed and its performance characteristics determined by [facility] in a manner consistent with CLIA requirements. This test has not been cleared or approved by the U.S. Food and Drug Administration. mGluR1 Ab IFA, CSF Negative Negative ADDITIONAL INFORMATION This test was developed and its performance characteristics determined by [facility] in a manner consistent with CLIA requirements. This test has not been cleared or approved by the U.S. Food and Drug Administration. IgLON5 CBA, CSF Negative Negative ADDITIONAL INFORMATION This test was developed and its performance characteristics determined by [facility] in a manner consistent with CLIA requirements. This test has not been cleared or approve (more content not included)... Performed By: #### T HYR, CBC, BMP, 479 #### [facility] ([id number]) [address], [address] [place] [address] Flow cytometry specialist re view Ramone (Unsp spec) [Interp]on 07-10-2024 FLOW CYTOMETRY CSF SEE SEPARATE REPORT, REVIEWED BY PATHOLOGIST Normal [facility] Comment on above: Performed By: #### T HYR, CBC, BMP, 2776-06, #### [facility] ([id number]) [address], [address] [place] [address] Glucose (CSF) [Mass/Vol]on 0 07-10-2024 CSF GLUCOSE 66 mg/dL Normal 40-70 [facility] Comment on above: Performed By: #### T HYR, CBC, BMP, 2776-06, #### [facility] ([id number]) [address], [address] [place] [address] Glucose, CSFon 07-10-2024 Glucose (CSF) [Mass/Vol] 66 mg/dL 40 - 70 mg/dL [facility] LYME ETL SOFTWARE ENGINEER Infection IgG w/ An tibody Index Reflex, CSF and Serumon 07-10-2024 LYME ETL SOFTWARE ENGINEER IGG INTERP. See Note [facility] Comment on above: Result Comment: NOTE [...] developed and its performance characteristics determined by [facility] in a manner consistent with CLIA requirements. This test has not been cleared or approved by the U.S. Food and Drug Administration. LYME ETL SOFTWARE ENGINEER IGG, CSF Negative Normal Negative [facility] LYME ETL SOFTWARE ENGINEER IGG, SERUM See Note Normal [facility] Comment on above: Result Comment: NOTE CSF screen was negative for IgG-class antibodies to Lyme Borrelia species. Testing for IgG-class antibodies to Borrelia in serum is not indicated and was not performed. Test Performed by: [facility] [address] [place] [address] [employer] Consultant: Eduardo Clark Ph.D.; CLIA# [id number] Lumbar Punctureon 07-10-2024 Arnulfo Haley MD 07/10/2024 [...] to verify the correct patient, procedure, equipment, support associate and site/side marked as required. Anesthesia: local infiltration Anesthesia: Local Anesthetic: lidocaine 1% without epinephrine Sedation: Patient sedated: yes Lumbar space: L3-L4 interspace Patient's position: left lateral decubitus Opening pressure: 12 cm H2O Fluid appearance: clear Tubes of fluid: 4 Total volume: 17.5 ml Post-procedure: pressure dressing applied and adhesive bandage applied Procedure was completed Complications: none MANUALLY TRANSCRIBED RESULTS [facility] [employer] MENINGITIS PANELon 5 Meningitis+Encephalit is pathogens [...] NEOFORMANS Not detected (qualifier value) Normal NDET [facility] Comment on above: Performed By: #### T HYR, CBC, BMP, 2777-1, 74171-4 #### [facility] ([id number]) [address], [address] [place] [address] MR BRAIN W WO CONTon 025 MR BRAIN W WO CONT MR BRAIN W WO CONT STUDY: MRI brain with without contrast . CLINICAL HISTORY: Mental status change, unknown cause COMPARISON: July 03, 2024 brain MRI from [facility] Procedure: Multiplanar, multisequence imaging performed through the [...] and cranio-cervical junction. Flow voids documented in [place] and dural venous sinuses. No [...] Lu MD on 07/10/2024 11:31 AM Normal [facility] MR Brain WO and W contrast I Von 07-10-2024 STUDY: MRI brain with without contrast . CLINICAL HISTORY: Mental status change, unknown cause COMPARISON: July 03, 2024 brain MRI from [facility] Procedure: Multiplanar, multisequence imaging performed through the [...] and cranio-cervical junction. Flow voids documented in [place] and dural venous sinuses. No [...] COMPARISON: July 03, 2024 brain MRI from [facility] Procedure: Multiplanar, multisequence imaging performed through the [...] and cranio-cervical junction. Flow voids documented in [place] and dural venous sinuses. No [...] Wilson Lu MD on 07/10/2024 11:31 AM [facility] Radiology Study observation (narrative) [facility] MR Brain WO and W contrast I VOrdered By: Wilson Lu on 07-10-2024 [facility] Work Phone: Meningitis+Encephalitis path ogens DNA and RNA panel LILLIANA+non-probe (CSF)on 07-10-2024 C. gattii+neoformans DNA LILLIANA+non-probe Ql (CSF) Not detected Not Detected^No t Detected [facility] CMV DNA LILLIANA+non-probe Ql (CSF) Not detected Not Detected^No t Detected [facility] E. coli K1 DNA LILLIANA+non-probe Ql (CSF) Not detected Not Detected^No t Detected [facility] Enterovirus RNA LILLIANA+non-probe Ql (CSF) Not detected Not Detected^No t Detected [facility] H. influenzae DNA LILLIANA+non-probe Ql (CSF) Not detected Not Detected^No t Detected [facility] HHV 6 DNA LILLIANA+non-probe Ql (CSF) Not detected Not Detected^No t Detected [facility] HSV 1 DNA LILLIANA+non-probe Ql (CSF) Not detected Not Detected^No t Detected [facility] HSV 2 DNA LILLIANA+non-probe Ql (CSF) Not detected Not Detected^No t Detected [facility] L. monocytogenes DNA LILLIANA+non-probe Ql (CSF) Not detected Not Detected^No t Detected [facility] N. meningitidis DNA LILLIANA+non-probe Ql (CSF) Not detected Not Detected^No t Detected [facility] Parechovirus A RNA LILLIANA+non-probe Ql (CSF) Not detected Not Detected^No t Detected [facility] S. agalactiae DNA LILLIANA+non-probe Ql (CSF) Not detected Not Detected^No t Detected [facility] S. pneumoniae DNA LILLIANA+non-probe Ql (CSF) Not detected Not Detected^No t Detected [facility] Specimen source Nom (Body fld) CEREBROSPINAL FLUID [facility] VZV DNA LILLIANA+non-probe Ql (CSF) Not detected Not Detected^No t Detected [facility] No Panel Informationon 07-10 [facility] Protein (CSF) [Mass/Vol]on 0 07-10-2024 CSF TOTAL PROTEIN 45 mg/dL Normal 15-[address] [facility] Comment on above: Performed By: #### T HYR, CBC, BMP, 2776-06, 22095-2 #### [facility] ([id number]) [address], [address] [place] [address] Reagin Ab VDRL Ql (CSF)on VDRL, Spinal Fluid Negative Normal Negative [facility] Comment on above: Result Comment: NOTE Test Performed by: [facility] [address] [place] [address] [employer] Consultant: Eduardo Clark Ph.D.; CLIA# [id number] Performed By: #### T HYR, CBC, BMP, 2776-06, 80946-7 #### [facility] ([id number]) [address], [address] [place] [address] SPINAL FLUID CELL CTon 07-10 CSF CLARITY CLEAR Normal [facility] Comment on above: Performed By: #### T HYR, CBC, BMP, 2776-06, 70266-0 #### [facility] ([id number]) [address], [address] [place] [address] CSF COLOR COLORLESS Normal [facility] Comment on above: Performed By: #### T HYR, CBC, BMP, 2776-06, 76501-4 #### [facility] ([id number]) [address], [address] [place] [address] CSF COMMENT TUBE 3 Normal [facility] Comment on above: Performed By: #### T HYR, CBC, BMP, 2776-06, #### [facility] ([id number]) [address], [address] [place] [address] CSF NUCLEATED CELLS 1 /uL Normal 0-5 [facility] Comment on above: Performed By: #### T HYR, CBC, BMP, 2776-06, 84699-1 #### [facility] ([id number]) [address], [address] [place] [address] CSF RBC 48 /uL High 0-1 [facility] Comment on above: Performed By: #### T HYR, CBC, BMP, 2776-06, 95172-7 #### [facility] ([id number]) [address], [address] [place] [address] CSF SUPERNATANT COLORLESS Normal [facility] Comment on above: Performed By: #### T HYR, CBC, BMP, 2776-06, 25383-0 #### [facility] ([id number]) [address], [address] [place] [address] SF DIFF NUCLEATED CELLS <5/uL; DIFF NOT TESTED Normal [facility] Comment on above: Performed By: #### T HYR, CBC, BMP, 2776-06, 17292-1 #### [facility] ([id number]) [address], [address] [place] [address] B. burgdorferi IgG+IgM Qn (S )on 07-09-2024 [facility] ECG 12 leadon 07-09-2024 TRACEMASTERVUE [facility] IgG synthesis rate Calc (S+C SF) [Mass/Time]on 07-09-2024 CSF IgG Index Profile SEE COMMENTS 07/11/2024 12:55 PM Normal [facility] Comment on above: Result Comment: NOTE [...] mg/dL 3500 - 5000 Test Performed by: [facility] [address] [place] [address] [employer] Consultant: Eduardo Clark Ph.D.; CLIA# [id number] Test Performed by: [facility] [address] [place] [address] [employer] Consultant: Eduardo Clark Ph.D.; CLIA# [id number] TANNER Virus Antibody W/Reflexon 07-09-2024 TANNER Virus Antibody Positive Abnormal [facility] Comment on above: Result Comment: NOTE Index [...] index.(1) (1) TYSABRI(natalizumab)US Prescribing Information Performed by: [employer] [facility] [address] [place] [address] Jessenia Bagley MD, PhD, TANNER Virus Index 2.94 High [facility] Comment on above: Result Comment: NOTE Performed by: [employer] [facility] [address] [place] [address] Jessenia Bagley MD, PhD, Laboratory comment Ramone (Repo rt)on 07-09-2024 [facility] UNLISTED LAB TEST Sent to reference lab Normal [facility] Lyme Totalon 07-09-2024 B. burgdorferi IgG+IgM Qn (S) A1 NINF - 0.9 A1 [facility] Comment on above: Interpretation-------- <0.9 Negative 0.9 [...] (PPP) [Relative time] 1.1 {INR} Normal 0.8-1.1 [facility] Comment on above: Performed By: #### T HYR, CBC, BMP, #### [facility] ([id number]) [address], [address] [place] [address] PT Coag (PPP) [Time] 12.4 s Normal 9.8-13.2 [facility] Comment on above: Performed By: #### T HYR, CBC, BMP, 2776-06, #### [facility] ([id number]) [address], [address] [place] [address] Protime & INRon 07-09-2024 INR Coag (PPP) [Relative time] 1.1 {INR} [facility] PT Coag (PPP) [Time] 12.4 s [facility] Syphilis Total(Unknown Syphi lis Status)on 07-09-2024 T. pallidum IgG+IgM IA Ql (S) [facility] Comment on above: NON REACTIVE No serologic evidence of infection to Treponema pallidum (syphilis). Repeat testing may be considered in patients with suspected acute or primary syphilis in 2 to 4 weeks. T. pallidum IgG+IgM IA Ql (S )on 07-09-2024 [facility] Unlisted Lab Test TANNER viruson 07-09-2024 Laboratory comment Ramone (Report) Sent to reference lab [facility] AMMONIAon 07-08-2024 Ammonia (P) [Moles/Vol] 40 umol/L Normal 18-72 [facility] Comment on above: Result Comment: SPEC IMEN HEMOLYZED, RESULTS INCREASED SLIGHTLY HEMOLYZED NEW REFERENCE RANGE Performed By: #### T HYR, CBC, BMP, 2776-06, 02771-6 #### [facility] ([id number]) [address], [address] [place] [address] Ammoniaon 07-08-2024 Ammonia (P) [Moles/Vol] 40 umol/L 18 - 72 umol/L [facility] Comment on above: SPECIMEN HEMOLYZED, RESULTS INCREASED SLIGHTLY HEMOLYZED NEW REFERENCE RANGE Ammonia (P) [Moles/Vol]on [facility] BASIC METABOLIC PANLon 07-08 Anion gap [Moles/Vol] 6 mmol/L Normal 5-15 [facility] Comment on above: Performed By: #### T HYR, CBC, BMP, 2776-06, #### [facility] ([id number]) [address], [address] [place] [address] Calcium [Mass/Vol] 8.3 mg/dL Low 8.5-10.5 [facility] Comment on above: Performed By: #### T HYR, CBC, BMP, 2776-06, #### [facility] ([id number]) [address], [address] [place] [address] Chloride [Moles/Vol] 107 mmol/L Normal 98-109 [facility] Comment on above: Performed By: #### T HYR, CBC, BMP, 2776-06, 02158-9 #### [facility] ([id number]) [address], [address] [place] [address] CO2 [Moles/Vol] 29 mmol/L Normal 22-32 [facility] Comment on above: Performed By: #### T HYR, CBC, BMP, 2776-06, 01150-0 #### [facility] ([id number]) [address], [address] [place] [address] Creatinine [Mass/Vol] 0.91 mg/dL Normal 0.60-1.30 [facility] Comment on above: Result Comment: METH OD TRACEABLE TO IDMS STANDARD Performed By: #### T HYR, CBC, BMP, 2776-06, 49072-6 #### [facility] ([id number]) [address], [address] [place] [address] eGFR (CKD-EPI) NON-RACE DEPENDENT >90 Normal >59 [facility] Comment on above: Result Comment: Reported eGFR is based on the CKD-EPI 1 equation that does not use a race coefficient. Performed By: #### T HYR, CBC, BMP, 2776-06, #### [facility] ([id number]) [address], [address] [place] [address] Glucose [Mass/Vol] 91 mg/dL Normal 65-99 [facility] Comment on above: Performed By: #### T HYR, CBC, BMP, 2776-06, 12024-2 #### [facility] ([id number]) [address], [address] [place] [address] Potassium [Moles/Vol] 4.1 mmol/L Normal 3.5-5.0 [facility] Comment on above: Performed By: #### T HYR, CBC, BMP, 2776-06, #### [facility] ([id number]) [address], [address] [place] [address] Sodium [Moles/Vol] 142 mmol/L Normal 134-146 [facility] Comment on above: Performed By: #### T HYR, CBC, BMP, 2776-06, #### [facility] ([id number]) [address], [address] [place] [address] Urea nitrogen [Mass/Vol] 22 mg/dL Normal 5-23 [facility] Comment on above: Performed By: #### T HYR, CBC, BMP, 2776-06, #### [facility] ([id number]) [address], [address] [place] [address] Basic Metabolic Panelon 06-20 Anion gap [Moles/Vol] 6 mmol/L 5 - 15 mmol/L [facility] Calcium [Mass/Vol] 8.3 mg/dL Low 8.5 - 10. 5 mg/dL [facility] Chloride [Moles/Vol] 107 mmol/L 98 - 10 9 mmol/L [facility] CO2 [Moles/Vol] 29 mmol/L 22 - 32 mmol/L [facility] Creatinine [Mass/Vol] 0.91 mg/dL 0.60 - 1.30 mg/dL [facility] Comment on above: METHOD TRACEABLE TO IDMS STANDARD eGFR (CKD-EPI)non-race dependent - PINF [facility] Comment on above: Reported eGFR is based on the CKD-EPI 2020 equation that does not use a race coefficient. Glucose [Mass/Vol] 91 mg/dL 65 - 99 mg/dL [facility] Interpretation and review of laboratory results Abnormal [facility] Potassium [Moles/Vol] 4.1 mmol/L 3.5 - 5.0 mmol/L [facility] Sodium [Moles/Vol] 142 mmol/L 134 - 146 mmol/L [facility] Urea nitrogen [Mass/Vol] 22 mg/dL 5 - 23 mg/dL [facility] CBC without diffon Erythrocyte distribution width (RBC) [Ratio] 15.6 % High 11.5 - 15.0 % [facility] Hematocrit (Bld) [Volume fraction] 39.1 % 39 - 49 % [facility] Hemoglobin (Bld) [Mass/Vol] 12.7 g/dL Low 13.0 - 17.0 g/dL [facility] Interpretation and review of laboratory results Abnormal [facility] MCH (RBC) [Entitic mass] 24.5 pg Low 27 - 34 pg [facility] [facility] MCHC (RBC) [Mass/Vol] 32.5 g/dL 32 - 3 6 g/dL [facility] MCV (RBC) [Entitic vol] 75 fL Low 80 - 100 fL [facility] Platelet mean volume (Bld) [Entitic vol] 8.6 fL 7 - 12 fL [facility] Platelets (Bld) [#/Vol] 154 10*3/uL [facility] RBC (Bld) [#/Vol] 5.19 10*6/uL [facility] WBC corrected for nucl RBC Auto (Bld) [#/Vol] 4.1 [facility] COMPLETE BLOOD COUNTon 07-08 Erythrocyte distribution width (RBC) [Ratio] 15.6 % High 11.5-15.0 [facility] Comment on above: Performed By: #### T HYR, CBC, BMP, 9 #### [facility] ([id number]) [address], [address] [place] [address] Hematocrit (Bld) [Volume fraction] 39.1 % Normal 39-49 [facility] Comment on above: Performed By: #### T HYR, CBC, BMP, 2776-06, 49778-0 #### [facility] ([id number]) [address], [address] [place] [address] Hemoglobin (Bld) [Mass/Vol] 12.7 g/dL Low 13.0-17.0 [facility] Comment on above: Performed By: #### T HYR, CBC, BMP, 2776-06, #### [facility] ([id number]) [address], [address] [place] [address] MCH (RBC) [Entitic mass] 24.5 pg Low 27-34 [facility] Comment on above: Performed By: #### T HYR, CBC, BMP, 2776-06, #### [facility] ([id number]) [address], [address] [place] [address] MCHC (RBC) [Mass/Vol] 32.5 g/dL Normal 32-36 [facility] Comment on above: Performed By: #### T HYR, CBC, BMP, 2776-06, #### [facility] ([id number]) [address], [address] [place] [address] MCV (RBC) [Entitic vol] 75 fL Low 80-100 [facility] Comment on above: Performed By: #### T HYR, CBC, BMP, 2776-06, #### [facility] ([id number]) [address], [address] [place] [address] Platelet mean volume (Bld) [Entitic vol] 8.6 fL Normal 7-12 [facility] Comment on above: Performed By: #### T HYR, CBC, BMP, 2776-06, #### [facility] ([id number]) [address], [address] [place] [address] Platelets (Bld) [#/Vol] 154 10*3/uL Normal 150-450 [facility] Comment on above: Performed By: #### T HYR, CBC, BMP, 2776-06, #### [facility] ([id number]) [address], [address] [place] [address] RBC COUNT 5.19 X10E12/L Normal 4.10-5.70 [facility] Comment on above: Performed By: #### T HYR, CBC, BMP, 7-1, #### [facility] ([id number]) [address], [address] [place] [address] WBC (Bld) [#/Vol] 4.1 10*3/uL Normal 4.0-11.0 [facility] Comment on above: Performed By: #### T HYR, CBC, BMP, 2776-, #### [facility] ([id number]) [address], [address] [place] [address] Cobalamin (Vitamin B12) [Mas s/Vol]on 07-08-2024 [facility] EEGon 07-08-2024 Images from the [...] MD, PhD Neurology/Clinical Neurophysiology MANUALLY TRANSCRIBED RESULTS [facility] Folateon 07-08-2024 Folate [Mass/Vol] 10.2 ng/mL 5.8 - PINF ng/mL [facility] Comment on above: NEW REFERENCE RANGE Folate [Mass/Vol]on 07-08-19 [facility] FOLIC ACID 10.2 ng/mL Normal >5.8 [facility] Comment on above: Result Comment: NEW REFERENCE RANGE Performed By: #### T HYR, CBC, BMP, 2777-1, 15827-6 #### [facility] ([id number]) [address] [place] [address], [address] [place] [address] HIV 1&2 AB/AG Screen (P24 AG )on 07-08-2024 HIV 1+2 Ab+HIV1 p24 Ag IA Ql Non-Reactive Non-Reactiv e^Non-React deirdre [facility] Comment on above: NEW TEST METHOD NOTE [...] Ab+HIV1 p24 Ag IA Ql on 07-08-2024 [facility] 1 and 2 Ab/Ag Screen Non-Reactive Normal NRCT [facility] Comment on above: Result Comment: NEW [...] By: #### T HYR, CBC, BMP, 2777-, 10661-8 #### [facility] ([id number]) [address] [facility], [address] [place] [address] VITAMIN B12on 07-08-2024 Cobalamin (Vitamin B12) [Mass/Vol] 526 pg/mL Normal 180-914 [facility] Comment on above: Performed By: #### T HYR, CBC, BMP, 7, 60658-7 #### [facility] ([id number]) [address] [facility], [address] [place] [address] Vitamin B12on 07-08-2024 Cobalamin (Vitamin B12) [Mass/Vol] 526 pg/mL 180 - 914 pg/mL [facility] B. burgdorferi IgG+IgM Qn (S )on 07-07-2024 LYME TOTAL <0.2 Normal <0.9 [facility] Comment on above: Result Comment: Interpretation-------- <0.9 Negative 0.9 - 1.0 Equivocal >1.0 Positive No serological evidence of Borrelia infection.A non-reactive result does not exclude the possibility of Borrelia infection and cannot exclude early infection with B.burgdorferi. If Lyme borreliosis is suspected, a second sample should be collected and tested 2-4 weeks later. Performed By: #### C BC, BMP, 94024-0, 51774-3 #### [facility] ([id number]) [address], [address] [place] [address] BASIC METABOLIC PANLon 07-07 Anion gap [Moles/Vol] 8 mmol/L Normal 5-15 [facility] Comment on above: Performed By: #### C BC, BMP, 83666-5, 52361-3 #### [facility] ([id number]) [address], [address] [place] [address] Calcium [Mass/Vol] 8.8 mg/dL Normal 8.5-10.5 [facility] Comment on above: Performed By: #### Emily GAMA, BMP, 86754-3, 60837-3 #### [facility] ([id number]) [address], [address] [place] [address] Chloride [Moles/Vol] 107 mmol/L Normal 98-109 [facility] Comment on above: Performed By: #### Emily GAMA, BMP, 44662-0, 61570-2 #### [facility] ([id number]) [address], [address] [place] [address] CO2 [Moles/Vol] 30 mmol/L Normal 22-32 [facility] Comment on above: Performed By: #### Emily GAMA, BMP, 61283-4, 65698-8 #### [facility] ([id number]) [address], [address] [place] [address] Creatinine [Mass/Vol] 1.00 mg/dL Normal 0.60-1.30 [facility] Comment on above: Result Comment: METH OD TRACEABLE TO IDMS STANDARD Performed By: #### Emily GAMA, BMP, 77016-2, 31109-6 #### [facility] ([id number]) [address], [address] [place] [address] GFR/1.73 sq M.predicted among non-blacks MDRD (S/P/Bld) [Vol rate/Area] 87 mL/min/{1.73_m2} Normal >59 [facility] Comment on above: Result Comment: Reported eGFR is based on the CKD-EPI 2020 equation that does not use a race coefficient. Performed By: #### C DEE GAMA, 87861-7, 06724-5 #### [facility] ([id number]) [address], [address] [place] [address] Glucose [Mass/Vol] 106 mg/dL High 65-99 [facility] Comment on above: Performed By: #### DEE MOORE, 69996-9, 18252-0 #### [facility] ([id number]) [address], [address] [place] [address] Potassium [Moles/Vol] 3.9 mmol/L Normal 3.5-5.0 [facility] Comment on above: Performed By: #### DEE MOORE, 60119-1, 80030-1 #### [facility] ([id number]) [address], [address] [place] [address] Sodium [Moles/Vol] 145 mmol/L Normal 134-146 [facility] Comment on above: Performed By: #### Emily GAMA, DEE, 34360-9, 47289-4 #### [facility] ([id number]) [address], [address] [place] [address] Urea nitrogen [Mass/Vol] 23 mg/dL Normal 5-23 [facility] Comment on above: Performed By: #### DEE MOORE, 02202-2, 41302-7 #### [facility] ([id number]) [address], [address] [place] [address] Basic Metabolic Panelon 06-20 Anion gap [Moles/Vol] 8 mmol/L 5 - 15 mmol/L [facility] Calcium [Mass/Vol] 8.8 mg/dL 8.5 - 10. 5 mg/dL [facility] Chloride [Moles/Vol] 107 mmol/L 98 - 10 9 mmol/L [facility] CO2 [Moles/Vol] 30 mmol/L 22 - 32 mmol/L [facility] Creatinine [Mass/Vol] 1 mg/dL 0.60 - 1.30 mg/dL [facility] Comment on above: METHOD TRACEABLE TO [facility] STANDARD eGFR (CKD-EPI)non-race dependent 87 - PINF [facility] Comment on above: Reported eGFR is based on the CKD-EPI 2020 equation that does not use a race coefficient. Glucose [Mass/Vol] 106 mg/dL High 65 - 99 mg/dL [facility] Interpretation and review of laboratory results Abnormal [facility] Potassium [Moles/Vol] 3.9 mmol/L 3.5 - 5.0 mmol/L [facility] Sodium [Moles/Vol] 145 mmol/L 134 - 146 mmol/L [facility] Urea nitrogen [Mass/Vol] 23 mg/dL 5 - 23 mg/dL [facility] CBC without diffon Erythrocyte distribution width (RBC) [Ratio] 15.3 % High 11.5 - 15.0 % [facility] Hematocrit (Bld) [Volume fraction] 41.3 % 39 - 49 % [facility] Hemoglobin (Bld) [Mass/Vol] 13.4 g/dL 13.0 - 17.0 g/dL [facility] Interpretation and review of laboratory results Abnormal [facility] MCH (RBC) [Entitic mass] 24.7 pg Low 27 - 34 pg [facility] MCHC (RBC) [Mass/Vol] 32.5 g/dL 32 - 3 6 g/dL [facility] MCV (RBC) [Entitic vol] 76 fL Low 80 - 100 fL [facility] Platelet mean volume (Bld) [Entitic vol] 7.8 fL 7 - 12 fL [facility] Platelets (Bld) [#/Vol] 152 10*3/uL [facility] RBC (Bld) [#/Vol] 5.45 10*6/uL [facility] WBC corrected for nucl RBC Auto (Bld) [#/Vol] 4.4 [facility] COMPLETE BLOOD COUNTon 07-07 Erythrocyte distribution width (RBC) [Ratio] 15.3 % High 11.5-15.0 [facility] Comment on above: Performed By: #### C BC, BMP, 57899-3, 67918-4 #### [facility] ([id number]) [address], [address] [place] [address] Hematocrit (Bld) [Volume fraction] 41.3 % Normal 39-49 [facility] Comment on above: Performed By: #### C BC, BMP, 63736-9, 74627-4 #### [facility] ([id number]) [address], [address] [place] [address] Hemoglobin (Bld) [Mass/Vol] 13.4 g/dL Normal 13.0-17.0 [facility] Comment on above: Performed By: #### Emily BC, BMP, 16969-1, 92221-8 #### [facility] ([id number]) [address], [address] [place] [address] MCH (RBC) [Entitic mass] 24.7 pg Low 27-34 [facility] Comment on above: Performed By: #### C BC, BMP, 27971-1, 96783-9 #### [facility] ([id number]) [address], [address] [place] [address] MCHC (RBC) [Mass/Vol] 32.5 g/dL Normal 32-36 [facility] Comment on above: Performed By: #### C BC, BMP, 21408-8, 26290-3 #### [facility] ([id number]) [address], [address] [place] [address] MCV (RBC) [Entitic vol] 76 fL Low 80-100 [facility] Comment on above: Performed By: #### C BC, BMP, 27513-8, 95869-7 #### [facility] ([id number]) [address], [address] [place] [address] Platelet mean volume (Bld) [Entitic vol] 7.8 fL Normal 7-12 [facility] Comment on above: Performed By: #### C NATAN, BMP, 01170-4, 15574-4 #### [facility] ([id number]) [address], [address] [place] [address] Platelets (Bld) [#/Vol] 152 10*3/uL Normal 150-450 [facility] Comment on above: Performed By: #### C NATAN, BMP, 17472-2, 47099-3 #### [facility] ([id number]) [address], [address] [place] [address] RBC COUNT 5.45 X10E12/L Normal 4.10-5.70 [facility] Comment on above: Performed By: #### Emily BC, BMP, 02255-6, 87348-4 #### [facility] ([id number]) [address], [address] [place] [address] WBC (Bld) [#/Vol] 4.4 10*3/uL Normal 4.0-11.0 [facility] Comment on above: Performed By: #### Emily GAMA, BMP, 55149-4, 10390-3 #### [facility] ([id number]) [address], [address] [place] [address] CT BRAIN WO CONTon 5 CT BRAIN [...] Johnson MD on 07/07/2024 9:19 AM Normal [facility] CT Head WO contraston 2024 CT [...] Delonte Johnson MD on 07/07/2024 9:19 AM [facility] Study observation (narrative) [facility] Head WO contrastOrdered B y: Delonte Johnson on 07-07-2024 [facility] Work Phone: EEGon 07-07-2024 Images from [...] RESULTS EEGOrdered By: Reji Sanon on 07-07-2024 [facility] Work Phone: T. pallidum IgG+IgM IA Ql (S )on 07-07-2024 Syphilis Total <0.2 Normal 0.0-0.8 [facility] Comment on above: Result Comment: NON REACTIVE No serologic evidence of infection to Treponema pallidum (syphilis). Repeat testing may be considered in patients with suspected acute or primary syphilis in 2 to 4 weeks. Performed By: #### C BC, BMP, 64201-7, 02773-9 #### [facility] ([id number]) [address], [address] [place] [address] BASIC METABOLIC PANLon 07-06 Anion gap [Moles/Vol] 7 mmol/L Normal 5-15 [facility] Comment on above: Performed By: #### T HYR, CBC, BMP, 2776-06, 42755-4 #### [facility] ([id number]) [address], [address] [place] [address] Calcium [Mass/Vol] 8.8 mg/dL Normal 8.5-10.5 [facility] Comment on above: Performed By: #### T HYR, CBC, BMP, 2776-06, #### [facility] ([id number]) [address], [address] [place] [address] Chloride [Moles/Vol] 105 mmol/L Normal 98-109 [facility] Comment on above: Performed By: #### T HYR, CBC, BMP, 2776-06, #### [facility] ([id number]) [address], [address] [place] [address] CO2 [Moles/Vol] 30 mmol/L Normal 22-32 [facility] Comment on above: Performed By: #### T HYR, CBC, BMP, 2776-06, #### [facility] ([id number]) [address], [address] [place] [address] Creatinine [Mass/Vol] 1.00 mg/dL Normal 0.60-1.30 [facility] Comment on above: Result Comment: METH OD TRACEABLE TO IDMS STANDARD Performed By: #### T HYR, CBC, BMP, 2776-06, #### [facility] ([id number]) [address], [facility] [email or web address] [address] [place] [address] GFR/1.73 sq M.predicted among non-blacks MDRD (S/P/Bld) [Vol rate/Area] 87 mL/min/{1.73_m2} Normal >59 [facility] Comment on above: Result Comment: Reported eGFR is based on the CKD-EPI 2020 equation that does not use a race coefficient. Performed By: #### T HYR, CBC, BMP, 2776-06, #### [facility] ([id number]) [address], [address] [place] [address] Glucose [Mass/Vol] 102 mg/dL High 65-99 [facility] Comment on above: Performed By: #### T HYR, CBC, BMP, 2776-06, #### [facility] ([id number]) [address] [address] [place] [address] Potassium [Moles/Vol] 4.0 mmol/L Normal 3.5-5.0 [facility] Comment on above: Performed By: #### T HYR, CBC, BMP, #### [facility] ([id number]) [address], [address] [place] [address] Sodium [Moles/Vol] 142 mmol/L Normal 134-146 [facility] Comment on above: Performed By: #### T HYR, CBC, BMP, 7-1, 20091-5 #### [facility] ([id number]) [address], [address] [place] [address] Urea nitrogen [Mass/Vol] 22 mg/dL Normal 5-23 [facility] Comment on above: Performed By: #### T HYR, CBC, BMP, 7-, #### [facility] ([id number]) [address], [address] [place] [address] Basic Metabolic Panelon 06-20 Anion gap [Moles/Vol] 7 mmol/L 5 - 15 mmol/L [facility] Calcium [Mass/Vol] 8.8 mg/dL 8.5 - 10. 5 mg/dL [facility] Chloride [Moles/Vol] 105 mmol/L 98 - 10 9 mmol/L [facility] CO2 [Moles/Vol] 30 mmol/L 22 - 32 mmol/L [facility] Creatinine [Mass/Vol] 1 mg/dL 0.60 - 1.30 mg/dL [facility] Comment on above: METHOD TRACEABLE TO [facility] STANDARD eGFR (CKD-EPI)non-race dependent 87 - PINF [facility] Comment on above: Reported eGFR is based on the CKD-EPI 2020 equation that does not use a race coefficient. Glucose [Mass/Vol] 102 mg/dL High 65 - 99 mg/dL [facility] Interpretation and review of laboratory results Abnormal [facility] Potassium [Moles/Vol] 4 mmol/L 3.5 - 5.0 mmol/L [facility] Sodium [Moles/Vol] 142 mmol/L 134 - 146 mmol/L [facility] Urea nitrogen [Mass/Vol] 22 mg/dL 5 - 23 mg/dL [facility] CBC without diffon Erythrocyte distribution width (RBC) [Ratio] 15.5 % High 11.5 - 15.0 % [facility] Hematocrit (Bld) [Volume fraction] 42.8 % 39 - 49 % [facility] Hemoglobin (Bld) [Mass/Vol] 14.1 g/dL 13.0 - 17.0 g/dL [facility] Interpretation and review of laboratory results Abnormal [facility] MCH (RBC) [Entitic mass] 24.7 pg Low 27 - 34 pg [facility] MCHC (RBC) [Mass/Vol] 33 g/dL 32 - 3 6 g/dL [facility] MCV (RBC) [Entitic vol] 75 fL Low 80 - 100 fL [facility] Platelet mean volume (Bld) [Entitic vol] 7.8 fL 7 - 12 fL [facility] Platelets (Bld) [#/Vol] 169 10*3/uL [facility] RBC (Bld) [#/Vol] 5.71 10*6/uL High [facility] WBC corrected for nucl RBC Auto (Bld) [#/Vol] 4.7 [facility] COMPLETE BLOOD COUNTon 07-06 Erythrocyte distribution width (RBC) [Ratio] 15.5 % High 11.5-15.0 [facility] Comment on above: Performed By: #### T HYR, CBC, BMP, 2776-06, 62066-7 #### [facility] ([id number]) [address], [address] [place] [address] Hematocrit (Bld) [Volume fraction] 42.8 % Normal 39-49 [facility] Comment on above: Performed By: #### T HYR, CBC, BMP, 2776-06, 03265-1 #### [facility] ([id number]) [address], [address] [place] [address] Hemoglobin (Bld) [Mass/Vol] 14.1 g/dL Normal 13.0-17.0 [facility] Comment on above: Performed By: #### T HYR, CBC, BMP, 2776-06, #### [facility] ([id number]) [address], [address] [place] [address] MCH (RBC) [Entitic mass] 24.7 pg Low 27-34 [facility] Comment on above: Performed By: #### T HYR, CBC, BMP, 2776-06, #### [facility] ([id number]) [address], [address] [place] [address] MCHC (RBC) [Mass/Vol] 33.0 g/dL Normal 32-36 [facility] Comment on above: Performed By: #### T HYR, CBC, BMP, 2776-06, #### [facility] ([id number]) [address], [address] [place] [address] MCV (RBC) [Entitic vol] 75 fL Low 80-100 [facility] Comment on above: Performed By: #### T HYR, CBC, BMP, 2776-06, #### [facility] ([id number]) [address], [facility] [[email or web address]] [address] [place] [address] Platelet mean volume (Bld) [Entitic vol] 7.8 fL Normal 7-12 [facility] Comment on above: Performed By: #### T HYR, CBC, BMP, 2776-06, #### [facility] ([id number]) [address], [address] [place] [address] Platelets (Bld) [#/Vol] 169 10*3/uL Normal 150-450 [facility] Comment on above: Performed By: #### T HYR, CBC, BMP, 2776-06, #### [facility] ([id number]) [address], [address] [place] [address] RBC COUNT 5.71 X10E12/L High 4.10-5.70 [facility] Comment on above: Performed By: #### T HYR, CBC, BMP, 2776-06, 03700-2 #### [facility] ([id number]) [address], [address] [place] [address] WBC (Bld) [#/Vol] 4.7 10*3/uL Normal 4.0-11.0 [facility] Comment on above: Performed By: #### T HYR, CBC, BMP, 2776-06, #### [facility] ([id number]) [address], [address] [place] [address] MAGNESIUMon 07-06-2024 Magnesium [Mass/Vol] 1.9 mg/dL Normal 1.8-2.6 [facility] Comment on above: Performed By: #### T HYR, CBC, BMP, 2776-06, #### [facility] ([id number]) [address], [address] [place] [address] Magnesiumon 07-06-2024 Magnesium [Mass/Vol] 1.9 mg/dL 1.8 - 2 .6 mg/dL [facility] No Panel Informationon 07-06 [facility] PHOSPHORUSon 07-06-2024 Phosphate [Mass/Vol] 4.1 mg/dL Normal 2.4-4.9 [facility] Comment on above: Performed By: #### T HYR, CBC, BMP, 2776-06, 78763-6 #### [facility] ([id number]) [address], [address] [place] [address] Phosphoruson 07-06-2024 Phosphate [Mass/Vol] 4.1 mg/dL 2.4 - 4 .9 mg/dL [facility] THYROID PROFILEon 07-06-2024 Free T4 [Mass/Vol] 0.84 ng/dL Normal 0.61-1.60 [facility] Comment on above: Performed By: #### T HYR, CBC, BMP, 2776-06, 41854-6 #### [facility] ([id number]) [address], [address] [place] [address] TSH 1.16 uIU/mL Normal 0.49-4.67 [facility] Comment on above: Performed By: #### T HYR, CBC, BMP, 2777-1, 00349-6 #### [facility] ([id number]) [address], [address] [place] [address] Thyroid profile includes TSH FT4on 07-06-2024 Free T4 [Mass/Vol] 0.84 ng/dL 0.61 - 1. 60 ng/dL [facility] TSH Qn 1.16 m[IU]/L [facility] ACETAMINOPHENon 06-24-2024 Acetaminophen [Mass/Vol] 3.3 ug/mL Low 10.0-30.0 [facility] Comment on above: Result Comment: Refe rence ranges are for therapeutic limits. Performed By: #### C BCA, CMP, 5643-2, 3298-7, 4024-6, THYR #### [facility] ([id number]) [address] [place] [address] CBC AND AUTO DIFFon 06-24-19 25 ABSOLUTE BASOPHIL 0.1 X10E9/L Normal 0.0-0.2 [facility] Comment on above: Performed By: #### C BCA, CMP, 5643-2, 3298-7, 4024-6, THYR #### [facility] ([id number]) [address] [place] [address] ABSOLUTE NEUTROPHIL 3.1 X10E9/L Normal 1.5-6.6 [facility] Comment on above: Performed By: #### C BCA, CMP, 5643-2, 3298-7, 4024-6, THYR #### [facility] ([id number]) [address] [place] [address] Basophils/100 WBC (Bld) 1.0 % Normal [facility] Comment on above: Performed By: #### C CARRIE, CMP, 5643-2, 3298-7, 4024-6, THYR #### [facility] ([id number]) [address] [place] [address] Eosinophils (Bld) [#/Vol] 0.1 10*3/uL Normal 0.0-0.4 [facility] Comment on above: Performed By: #### C CARRIE, CMP, 5643-2, 3298-7, 4024-6, THYR #### [facility] ([id number]) [address] [place] [address] Eosinophils/100 WBC (Bld) 1.4 % Normal [facility] Comment on above: Performed By: #### C CARRIE, [facility], 5643-2, 3298-7, 4024-6, THYR #### [facility] ([id number]) [address] [place] [address] 32877 Erythrocyte distribution width (RBC) [Ratio] 15.6 % High 11.5-15.0 [facility] Comment on above: Performed By: #### C CARRIE, CMP, 5643-2, 3298-7, 4024-6, THYR #### [facility] ([id number]) [address] [place] [address] 89785 Hematocrit (Bld) [Volume fraction] 42.7 % Normal 39-49 [facility] Comment on above: Performed By: #### C CARRIE, CMP, 5643-2, 3298-7, 4024-6, THYR #### [facility] ([id number]) [address] [place] [address] 17005 Hemoglobin (Bld) [Mass/Vol] 14.3 g/dL Normal 13.0-17.0 [facility] Comment on above: Performed By: #### C BCA, CMP, 5643-2, 3298-7, 4024-6, THYR #### [facility] ([id number]) [address] [place] [address] 91404 Lymphocytes (Bld) [#/Vol] 1.8 10*3/uL Normal 1.0-3.5 [facility] Comment on above: Performed By: #### C BCA, [facility], 5643-2, 3298-7, 4024-6, THYR #### [facility] ([id number]) [address] [place] [address] 88688 Lymphocytes/100 WBC (Bld) 33.3 % Normal [facility] Comment on above: Performed By: #### C BCA, [facility], 5643-2, 3298-7, 4024-6, THYR #### [facility] ([id number]) [address] [place] [address] 10435 MCH (RBC) [Entitic mass] 24.7 pg Low 27-34 [facility] Comment on above: Performed By: #### C BCA, [facility], 5643-2, 3298-7, 4024-6, THYR #### [facility] ([id number]) [address] [place] [address] 13476 MCHC (RBC) [Mass/Vol] 33.4 g/dL Normal 32-36 [facility] Comment on above: Performed By: #### C BCA, CMP, 5643-2, 3298-7, 4024-6, THYR #### [facility] ([id number]) [address] [place] [address] 17[address] MCV (RBC) [Entitic vol] 74 fL Low 80-100 [facility] Comment on above: Performed By: #### C BCA, CMP, 5643-2, 3298-7, 4024-6, THYR #### [facility] ([id number]) [address] [place] [address], [place] [address] Monocytes (Bld) [#/Vol] 0.4 10*3/uL Normal 0-0.9 [facility] Comment on above: Performed By: #### C OWEN BUTLER, 5643-2, 3298-7, 4024-6, THYR #### [facility] ([id number]) [address] [place] [address] 43077 Monocytes/100 WBC (Bld) 6.9 % Normal [facility] Comment on above: Performed By: #### Emily BUTLER CMP, 5643-2, 3298-7, 4024-6, THYR #### [facility] ([id number]) [address] [place] [address] 56422 Neutrophils/100 WBC (Bld) 57.4 % Normal [facility] Comment on above: Performed By: #### Emily BUTLER [facility], 43-2, 3298-7, 4024-6, THYR #### [facility] ([id number]) [address] [place] [address] 70870 Platelet mean volume (Bld) [Entitic vol] 7.8 fL Normal 7-12 [facility] Comment on above: Performed By: #### Emily BUTLER CMP, 5643-2, 3298-7, 4024-6, THYR #### [facility] ([id number]) [address] [place] [address] 09512 Platelets (Bld) [#/Vol] 174 10*3/uL Normal 150-450 [facility] Comment on above: Performed By: #### Emily BUTLER CMP, 5643-2, 3298-7, 4024-6, THYR #### [facility] ([id number]) [address] [place] [address] 68207 RBC COUNT 5.77 X10E12/L High 4.10-5.70 [facility] Comment on above: Performed By: #### C BCA, CMP, 5643-2, 3298-7, 4024-6, THYR #### [facility] ([id number]) [address] [place] [address] 19162 WBC (Bld) [#/Vol] 5.4 10*3/uL Normal 4.0-11.0 [facility] Comment on above: Performed By: #### C BCA, CMP, 5643-2, 3298-7, 4024-6, THYR #### [facility] ([id number]) [address] [place] [address] 69624 COMPREHENSIVE METABOLIC PANE Jatin 06-24-2024 Albumin [Mass/Vol] 4.0 g/dL Normal 3.2-5.3 [facility] Comment on above: Performed By: #### C BCA, CMP, 5643-2, 3298-7, 4024-6, THYR #### [facility] ([id number]) [address] [place] [address] 30734 ALP [Catalytic activity/Vol] 65 U/L Normal 39-130 [facility] Comment on above: Performed By: #### C BCA, CMP, 5643-2, 3298-7, 4024-6, THYR #### [facility] ([id number]) [address] [place] [address] 73223 ALT [Catalytic activity/Vol] 17 U/L Normal 0-40 [facility] Comment on above: Performed By: #### C BCA, CMP, 5643-2, 3298-7, 4024-6, THYR #### [facility] ([id number]) [address] [place] [address] 54425 Anion gap [Moles/Vol] 8 mmol/L Normal 5-15 [facility] Comment on above: Performed By: #### C BCA, CMP, 5643-2, 3298-7, 4024-6, THYR #### [facility] ([id number]) [address] [place] [address] 84398 AST [Catalytic activity/Vol] 17 U/L Normal 0-41 [facility] Comment on above: Performed By: #### C BCA, CMP, 5643-2, 3298-7, 4024-6, THYR #### [facility] ([id number]) [address] [place] [address] 30651 Bilirubin [Mass/Vol] 0.7 mg/dL Normal 0.3-1.2 [facility] Comment on above: Performed By: #### C BCA, CMP, 5643-2, 3298-7, 4024-6, THYR #### [facility] ([id number]) [address] [place] [address] 57460 Calcium [Mass/Vol] 8.9 mg/dL Normal 8.5-10.5 [facility] Comment on above: Performed By: #### C BCA, CMP, 5643-2, 3298-7, 4024-6, THYR #### [facility] ([id number]) [address] [place] [address] 51896 Chloride [Moles/Vol] 106 mmol/L Normal 98-109 [facility] Comment on above: Performed By: #### C BCA, CMP, 5643-2, 3298-7, 4024-6, THYR #### [facility] ([id number]) [address] [place] [address] 21278 CO2 [Moles/Vol] 24 mmol/L Normal 22-32 [facility] Comment on above: Performed By: #### C BCA, CMP, 5643-2, 3298-7, 4024-6, THYR #### [facility] ([id number]) [address] [place] [address] 53257 Creatinine [Mass/Vol] 0.88 mg/dL Normal 0.70-1.20 [facility] Comment on above: Result Comment: METH OD TRACEABLE TO IDMS STANDARD Performed By: #### C CARRIE, OWEN, 5643-2, 3298-7, 4024-6, THYR #### [facility] ([id number]) [address] [place] [address] 68835 eGFR (CKD-EPI) NON-RACE DEPENDENT >90 Normal >59 [facility] Comment on above: Result Comment: Reported eGFR is based on the CKD-EPI 2020 equation that does not use a race coefficient. Performed By: #### C CARRIE, OWEN, 5643-2, 3298-7, 4024-6, THYR #### [facility] ([id number]) [address] [place] [address] 03158 Glucose [Mass/Vol] 105 mg/dL High 65-99 [facility] Comment on above: Performed By: #### C OWEN BUTLER, 5643-2, 3298-7, 4024-6, THYR #### [facility] ([id number]) [address] [place] [address] 47439 Potassium [Moles/Vol] 3.9 mmol/L Normal 3.5-5.0 [facility] Comment on above: Performed By: #### C OWEN BULTER, 5643-2, 3298-7, 4024-6, THYR #### [facility] ([id number]) [address] [place] [address] 01874 Protein [Mass/Vol] 6.9 g/dL Normal 6.0-8.0 [facility] Comment on above: Performed By: #### C OWEN BUTLER, 5643-2, 3298-7, 4024-6, THYR #### [facility] ([id number]) [address] [place] [address] 22769 Sodium [Moles/Vol] 138 mmol/L Normal 134-146 [facility] Comment on above: Performed By: #### C BCA, CMP, 5643-2, 3298-7, 4024-6, THYR #### [facility] ([id number]) [address] [place] [address] 48717 Urea nitrogen [Mass/Vol] 20 mg/dL Normal 5-23 [facility] Comment on above: Performed By: #### C BCA, CMP, 5643-2, 3298-7, 4024-6, THYR #### [facility] ([id number]) [address] [place] [address] 84188 DRUG SCREEN, URINEon 025 AMPHETAMINE/METHAMP Negative Normal NEG [facility] Comment on above: Result Comment: AMPH /METH screening cut off = 1000 ng/mL Performed By: #### D FAGAN #### [facility] ([id number]) [address] [place] [address] 63742 BARBITURATES Negative Normal NEG [facility] Comment on above: Result Comment: Izabel iturates screening cut off value = 200 ng/mL Performed By: #### D FAGAN #### [facility] ([id number]) [address] [place] [address] 89936 BENZODIAZEPINES Negative Normal NEG [facility] Comment on above: Result Comment: Skyler odiazepines screening cut off value = 200 ng/mL Performed By: #### D FAGAN #### [facility] ([id number]) [address] [place] [address] 12214 CANNABINOIDS Negative Normal NEG [facility] Comment on above: Result Comment: Sabina abinoids/THC screening cut off value = 50 ng/mL Performed By: #### D FAGAN #### [facility] ([id number]) [address] [place] [address] 61798 COCAINE METABOLITE Negative Normal NEG [facility] Comment on above: Result Comment: Coca ine screening cut off value = 300 ng/mL Performed By: #### D FAGAN #### [facility] ([id number]) [address] [place] [address] 04513 ECSTASY Negative Normal NEG [facility] Comment on above: Result Comment: Ecst asy screening cut off value = 500 ng/mL This report is intended for use in clinical monitoring or management of patients. Performed By: #### D FAGAN #### [facility] ([id number]) [address] [place] [address] 02193 METHADONE Negative Normal NEG [facility] Comment on above: Result Comment: Meth adone screening cut off value = 300 ng/mL. Performed By: #### D FAGAN #### [facility] ([id number]) [address] [place] [address] 24408 OPIATES Negative Normal NEG [facility] Comment on above: Result Comment: Opia ann screening cut off value = 300 ng/mL NOTE: This test is used for the detection of codeine, hydrocodone (>1000 ng/mL), morphine and hydromorphone (>900 ng/mL) in urine. Performed By: #### D FAGAN #### [facility] ([id number]) [address] [place] [address] 79581 OXYCODONE Negative Normal NEG [facility] Comment on above: Result Comment: Oxyc odone screening cut off value = 300 ng/mL NOTE: This test is used for the detection of oxycodone and oxymorphone in urine. Performed By: #### D FAGAN #### [facility] ([id number]) [address] [place] [address] 88256 PHENCYCLIDINE Negative Normal NEG [facility] Comment on above: Result Comment: Phen cyclidine screening cut off value = 25 ng/mL Performed By: #### D FAGAN #### [facility] ([id number]) [address] [place] [address] 41340 ETHANOLon 06-24-2024 Ethanol [Mass/Vol] mg/dL Normal 0.00-0.08 [facility] Comment on above: Result Comment: This report is intended for use in clinical monitoring or management of patients. Performed By: #### C CARRIE, OWEN, 5643-2, 3298-7, 4024-6, THYR #### [facility] ([id number]) [address] [place] [address] 15654 Salicylates [Mass/Vol]on SALICYLATE <4.0 Normal 2.0-25.0 [facility] Comment on above: Result Comment: Refe rence ranges are for therapeutic limits. Performed By: #### C CARRIE, OWEN, 5643-2, 3298-7, 4024-6, THYR #### [facility] ([id number]) [address] [place] [address] 99149 THYROID PROFILEon 06-24-2024 Free T4 [Mass/Vol] 0.92 ng/dL Normal 0.61-1.60 [facility] Comment on above: Performed By: #### C CARRIE, CMP, 5643-2, 3298-7, 4024-6, THYR #### [facility] ([id number]) [address] [place] [address] 89670 TSH 4.19 uIU/mL Normal 0.49-4.67 [facility] Comment on above: Performed By: #### C CARRIE, OWEN, 5643-2, 3298-7, 4024-6, THYR #### [facility] ([id number]) [address] [place] [address], [place] [address] URN MACROSCOPIC NURon 2024 BILIRUBIN IRMA Negative Normal NEG [facility] Comment on above: Performed By: #### N UM #### [facility] ([id number]) [address] [place] [address], [place] [address] BLOOD/HGB IRMA Negative Normal NEG [facility] Comment on above: Performed By: #### N UM #### [facility] ([id number]) [address] [place] [address] [place] [address] GLUCOSE IRMA Negative Normal NEG [facility] Comment on above: Performed By: #### N UM #### [facility] ([id number]) [address] [place] [address] [place] [address] KETONES IRMA Negative Normal NEG [facility] Comment on above: Performed By: #### N UM #### [facility] ([id number]) [address] [place] [address] 97898 LEUKOCYTE ESTERASE IRMA Negative Normal NEG [facility] Comment on above: Performed By: #### N UM #### [facility] ([id number]) [address] [place] [address] 85523 NITRITE IRMA Negative Normal NEG [facility] Comment on above: Performed By: #### N UM #### [facility] ([id number]) [address] [place] [address] 24027 PH IRMA 7.5 Normal 5.0-8.5 [facility] Comment on above: Performed By: #### N UM #### [facility] ([id number]) [address] [place] [address] 45398 PROTEIN IRMA Negative Normal NEG [facility] Comment on above: Performed By: #### N UM #### [facility] ([id number]) [address] [place] [address] [place] [address] SPECIFIC GRAVITY IRMA 1.015 Normal 1.003-1.035 [facility] Comment on above: Performed By: #### N UM #### [facility] ([id number]) [address] [place] [address] [place] [address] UROBILINOGEN IRMA 0.2 eu/dL Normal <1.1 [facility] Comment on above: Performed By: #### N UM #### [facility] ([id number]) [address] [place] [address], [place] [address] BMPon 06-21-2024 Anion gap [Moles/Vol] 11 mmol/L Normal 6-16 [facility] Comment on above: Performed By: #### 2 310484 #### [facility] [address] [place] [address] Calcium [Mass/Vol] 9.0 mg/dL Normal 8.9-11.1 [facility] Comment on above: Performed By: #### 2 122046 #### [facility] [address] [place] [address] Chloride [Moles/Vol] 102 mmol/L Normal 101-111 [facility] Comment on above: Performed By: #### 2 101586 #### [facility] [address] [place] [address] CO2 [Moles/Vol] 30 mmol/L Normal 21-31 [facility] Comment on above: Performed By: #### 2 348811 #### [facility] [address] [place] [address] Creatinine [Mass/Vol] 0.9 mg/dL Normal 0.5-1.3 [facility] Comment on above: Performed By: #### 2 724078 #### [facility] [address] [place] [address] Glucose [Mass/Vol] 108 mg/dL Normal 55-199 [facility] Comment on above: Performed By: #### 2 970663 #### [facility] [address] [place] [address] Potassium [Moles/Vol] 3.9 mmol/L Normal 3.5-5.3 [facility] Comment on above: Performed By: #### 2 131380 #### [facility] [address] [place] [address] Sodium [Moles/Vol] 139 mmol/L Normal 135-145 [facility] Comment on above: Performed By: #### 2 181353 #### [facility] [address] [place] [address] Urea nitrogen [Mass/Vol] 12 mg/dL Normal 5-21 [facility] Comment on above: Performed By: #### 2 511209 #### [facility] [address] [place] [address] 46141 Urea nitrogen/Creatinine [Mass ratio] 13 No Units Normal 10-20 [facility] Comment on above: Performed By: #### 2 230002 #### [facility] [address] [place] [address] CBC w/ Auto Diffon 5 Basophils/100 WBC (Bld) 0.6 % Normal 0.0-2.0 [facility] Comment on above: Performed By: #### 2 798312 #### [facility] [address] [place] [address] 13569 Basophils/Leukocytes Auto (Bld) [Pure # fraction] 0.0 E9/L Normal 0.0-0.2 [facility] Comment on above: Performed By: #### 2 739647 #### [facility] [address] [place] [address] 23562 Eosinophils (Bld) [#/Vol] 0.0 E9/L Normal 0.0-0.5 [facility] Comment on above: Performed By: #### 2 236571 #### [facility] [address] [place] [address] 95739 Eosinophils/100 WBC (Bld) 0.6 % Normal 0.0-8.0 [facility] Comment on above: Performed By: #### 2 150390 #### [facility] [address] [place] [address] 22327 Erythrocyte distribution width (RBC) [Ratio] 15.6 % High 10.9-14.2 [facility] Comment on above: Performed By: #### 2 350331 #### [facility] [address] [place] [address] 77674 Hematocrit (Bld) [Volume fraction] 45.0 % Normal 37.7-49.0 [facility] Comment on above: Performed By: #### 2 483301 #### [facility] [address] [place] [address] Hemoglobin (Bld) [Mass/Vol] 14.7 g/dL Normal 13.5-17.5 [facility] Comment on above: Performed By: #### 2 550937 #### [facility] [address] [place] [address] Hypochromia Auto Ql (Bld) PRESENT Invalid Interpretation Code [facility] Comment on above: Performed By: #### 2 580051 #### [facility] [address] [place] [address] Lymphocytes (Bld) [#/Vol] 1.1 E9/L Normal 1.0-4.0 [facility] Comment on above: Performed By: #### 2 667425 #### [facility] [address] [place] [address] Lymphocytes/100 WBC (Bld) 23.5 % Normal 14.0-50.0 [facility] Comment on above: Performed By: #### 2 608422 #### [facility] [address] [place] [address] MCH (RBC) [Entitic mass] 24.7 pg Low 27.0-34.0 [facility] Comment on above: Performed By: #### 2 677290 #### [facility] [address] [place] [address] MCHC (RBC) [Mass/Vol] 32.7 g/dL Normal 31.4-36.0 [facility] Comment on above: Performed By: #### 2 484993 #### [facility] [address] [place] [address] MCV (RBC) [Entitic vol] 75.5 fL Low 80.0-100.0 [facility] Comment on above: Performed By: #### 2 787058 #### [facility] [address] [place] [address] Monocytes (Bld) [#/Vol] 0.2 E9/L Normal 0.2-1.0 [facility] Comment on above: Performed By: #### 2 852199 #### [facility] [address] [place] [address] Neutrophils (Bld) [#/Vol] 3.3 E9/L Normal 2.0-7.5 [facility] Comment on above: Performed By: #### 2 905262 #### [facility] [address] [place] [address] Neutrophils/100 WBC (Bld) 70.5 % Normal 36.0-75.0 [facility] Comment on above: Performed By: #### 2 166057 #### [facility] [address] [place] [address] 16226 Platelet mean volume (Bld) [Entitic vol] 8.5 fL Normal 6.4-10.8 [facility] Comment on above: Performed By: #### 2 490587 #### [facility] [address] [place] [address] 49050 Platelets (Bld) [#/Vol] 167.0 E9/L Normal 150.0-500.0 [facility] Comment on above: Performed By: #### 2 193223 #### [facility] [address] [place] [address] 39866 RBC (Bld) [#/Vol] 6.0 E12/L High 4.3-5.9 [facility] Comment on above: Performed By: #### 2 061766 #### [facility] [address] [place] [address] 40782 RBC size Nom (Bld) SEE MORPHOLOGY Invalid Interpretation Code [facility] Comment on above: Performed By: #### 2 226396 #### [facility] [address] [place] [address] 17571 WBC corrected for nucl RBC Auto (Bld) [#/Vol] 4.6 E9/L Normal 4.0-11.0 [facility] Comment on above: Performed By: #### 2 999463 #### [facility] [address] [place] [address] 98510 CHEMISTRYOrdered By: SYSTEM SYSTEM on 06-21-2024 Anion [...] 30.4 s Normal 25.1 - 36.5 second(s) [facility] [place]ag Comment on above: Interpretive Data: [...] the same coagulation reagent and instrumentation as [facility] Currently there are no coagulation studies available worldwide for children to 14 days, and no normal ranges. Heparin therapeutic range (represented by Anti-Factor Xa activity of 0.2 - 0.4 U/mL) corresponds to PTT of 56.6 - 109.0 sec. INR Coag (PPP) [Relative time] 1.02 {INR} Invalid Interpretation Code [facility] Comment on above: Interpretive Data: I NR results are specifically intended to assess patients stabilized on long-term Anticoagulation therapy suggested INR s Less Intensive Anticoagulation 2.0 3.0 Conventional Range 3.0 4.5 PT Coag (PPP) [Time] 11.4 s Normal 9.4 - 1 2.5 second(s) [facility] [place] Comment on above: Interpretive Data: [...] the same coagulation reagent and instrumentation as [facility] Currently there are no coagulation studies available [...] the same coagulation reagent and instrumentation as [facility] Currently there are no coagulation studies available worldwide for children to 14 days, and no normal ranges. Heparin therapeutic range (represented by Anti-Factor Xa activity of 0.2 - 0.4 U/mL) corresponds to PTT of 56.6 - 109.0 sec. Performed By: #### 1 [id number] #### [facility] [address] [place] [address] INR Coag (PPP) [Relative time] 1.02 {INR} Invalid Interpretation Code [facility] Comment on above: Result Comment: INR results are specifically intended to assess patients stabilized on long-term Anticoagulation therapy suggested INR???s ???Less Intensive Anticoagulation??? 2.0 ??? 3.0 Conventional Range 3.0 ??? 4.5 Performed By: #### 1 [id number] #### [facility] [address] [place] [address] PT Coag (PPP) [Time] 11.4 second(s) Normal 9.4-12.5 [facility] Comment on above: Result Comment: 15 [...] the same coagulation reagent and instrumentation as [facility] Currently there are no coagulation studies available worldwide for children to 14 days, and no normal ranges. Performed By: #### 1 [id number] #### [facility] [address] [place] [address] UA with Cult Rflxon 06-21-19 25 Bilirubin Ql (U) Negative Normal Negative [facility] Comment on above: Performed By: #### 4 [id number] #### [facility] [address] [place] [address] Clarity (U) Clear Normal Clear [facility] Comment on above: Performed By: #### 4 [id number] #### [facility] [address] [place] [address] Color (U) Colorless Abnormal Yellow [facility] Comment on above: Result Comment: Micr oscopic readings are only performed on those samples that meet specific criteria set forth by [facility]. Performed By: #### 4 [id number] #### [facility] [address] [place] [address] Glucose Ql (U) Negative Normal Negative [facility] Comment on above: Performed By: #### 4 [id number] #### [facility] [address] [place] [address] 81882 Hemoglobin Auto test strip (U) [Mass/Vol] Negative Normal Negative [facility] Comment on above: Performed By: #### 4 [id number] #### [facility] [address] [place] [address] Ketones Auto test strip Ql (U) Negative Normal Negative [facility] Comment on above: Performed By: #### 4 [id number] #### [facility] [address] [place] [address] Leukocyte esterase Auto test strip Ql (U) Negative Normal Negative [facility] Comment on above: Performed By: #### 4 [id number] #### [facility] [address] [place] [address] Nitrite Auto test strip Ql (U) Negative Normal Negative [facility] Comment on above: Performed By: #### 4 [id number] #### [facility] [address] [place] [address] pH (U) 7.0 [pH] Invalid Interpretation Code 5.0-9.0 [facility] Comment on above: Performed By: #### 4 [id number] #### [facility] [address] [place] [address] Protein Ql (U) Negative Normal Negative [facility] Comment on above: Performed By: #### 4 [id number] #### [facility] [address] [place] [address] 42122 Specific gravity (U) [Rel density] 1.005 Invalid Interpretation Code 1.005-1.030 [facility] Comment on above: Performed By: #### 4 [id number] #### [facility] [address] [place] [address] 80859 Urobilinogen (U) [Mass/Vol] Negative Normal Negative [facility] Comment on above: Performed By: #### 4 [id number] #### [facility] [address] [place] [address] 24467 Type of Urine collection method Clean Catch Normal [facility] Comment on above: Performed By: #### 4 [id number] #### [facility] [address] [place] [address] URINALYSISOrdered By: SYSTEM SYSTEM on 06-21-2024 Bilirubin Ql (U) Negative Normal Negativemg/ dL [facility] UA Auto SS Clarity (U) Clear (06/21/24 11:04 AM) Normal Clear [facility] UA Auto SS Color (U) Colorless 1 *ABN* (06/21/24 11:04 AM) Invalid Interpretation Code Yellow [facility] UA Auto SS Comment on above: Interpretive Data: M icroscopic readings are only performed on those samples that meet specific criteria set forth by [facility]. Glucose Ql (U) Negative Normal Negativemg/ [...] AM) Invalid Interpretation Code 5.0 - 9.0 [facility] [place] Auto SS Protein Ql (U) Negative Normal Negativemg/ dL [facility] Auto SS Specific gravity (U) [Rel density] 1.005 *NA* (06/21/24 11:04 AM) Invalid Interpretation Code 1.005 - 1.030 [facility] Auto SS Urobilinogen (U) [Mass/Vol] Negative Normal Negativemg/ dL [facility] Auto SS URINALYSISOrdered By: Peter Larios on 06-21-2024 UA Spec Desc Clean Catch (06/21/24 11:04 AM) Normal [facility] Auto SS XR Chest 2 Viewson [...] mGy = na DAP = na Normal [facility] eGFRon 06-21-2024 eGFR 98 mL/min/1.73 m2 Normal >=59 [facility] Comment on above: Performed By: #### 1 [id number] #### [facility] [address] [place] [address] Provider Letteron 04-18-2024 Provider Letter Provider Letter April 18, 2024 NOÉ JEFFERY [address] [place] [id number] : 1965 Dear, I am corresponding with [...] Office Sincerely, Dr. Danni [facility] [address] [place] [address]. [place] [id number] Normal [facility] ISTAT XRay CREon 03-15-2024 ISTAT GFR > 60.0 Normal [facility] Comment on above: Result Comment: PERF ORMED BY: [place] [address] PATHOLOGIST BASE CLOTH INSPECTOR NALDO SALDIVAR M.D. Performed By: #### I SCRE #### [address] MR prostate wo/w conon 03-15 MR prostate wo/w con [facility] [place] [address] [place] [address] MRI Report Signed Patient: Noé Jeffery MR#: [id number] : 1965 Acct:[id number] Age/Sex: 58 / M ADM Date: 03/15/24 Loc: MR Room: Type: [facility] Attending Dr: Danni Graham MD Copies to: [...] Anne Jr., Brittany03/15/2024 3:05 PM Dictation Location: [place] [address] Transcribed By: [facility] 03/15/24 1505 Dictated By: Esdras Anne Jr, DO 03/15/24 1501 Signed By: 03/15/24 1505 Normal [facility] No Panel InformationOrdered By: Danni Graham on 03-15-2024 Bedside Estimated GFR (eGFR) > 60.0 [facility] Whole blood creatinine measu rementOrdered By: Danni Graham on 03-15-2024 Creatinine [Mass/Vol] 1.0 mg/dL Normal 0.6-1.3 [facility] Comment on above: ER/ESD physician is notified/shown all ISTAT results.Critical values may be confirmed by laboratory testing ifdeemed necessary by ER attending doctor. Result Comment: ER/E SD physician is notified/shown all ISTAT results. Critical values may be confirmed by laboratory testing if deemed necessary by ER attending doctor. Performed By: #### I SCRE #### [facility] [address] RITO by IFAon 10-25-2022 Antinuclear Antibodies, IFA Negative Normal [facility] Comment on above: Result Comment: Nega tive <1:80 Borderline 1:80 Positive >1:80 ICAP nomenclature: AC-0 For more information about Hep-2 cell patterns use ANApatterns.org, the official website for the International Consensus on Antinuclear Antibody (RITO) Patterns (ICAP). Performed By: #### T 7, TSH, CMP, LISANDRA, LIPA, LIPID #### [facility] [address] [place] [address] Dr. Janell Marquez ANTISTREPTOLYSIN O AB (ASO)o n 10-22-2022 Antistreptolysin O Ab 45.9 IU/mL Normal 0.0-200.0 [facility] Comment on above: Performed By: #### A SOAB #### [facility] [address] [place] [address] Dr. Janell Marquez RHEUMATOID FACTORon 10-23-19 RA Latex Turbid. <10.0 Normal <14.0 [facility] Comment on above: Performed By: #### R F #### [facility] [address] [place] [address] Dr. Janell Marquez CBC AUTO DIFFon 10-21-2022 BASO # 0.0 103/ul Normal 0.0-0.1 [facility] Comment on above: Performed By: #### T 7, TSH, CMP, LISANDRA, LIPA, LIPID #### [facility] [address] [place] [address] Dr. Janell Marquez Basophils/100 WBC (Bld) 0.4 % Normal 0.2-2.0 [facility] Comment on above: Performed By: #### T 7, TSH, CMP, LISANDRA, LIPA, LIPID #### [facility] [address] [place] [address] Dr. Janell Marquez EO # 0.0 103/ul Normal 0.0-0.7 [facility] Comment on above: Performed By: #### T 7, TSH, CMP, LISANDRA, LIPA, LIPID #### [facility] [address] [place] [address] [address] Janell Marquez Eosinophils/100 WBC (Bld) 0.7 % Critically low 0.9-7.0 [facility] Comment on above: Performed By: #### T 7, TSH, CMP, LISANDRA, LIPA, LIPID #### [facility] [address] [place] [address] Dr. Janell Marquez Erythrocyte distribution width (RBC) [Ratio] 16.1 % Critically high 11.0-15.0 [facility] Comment on above: Performed By: #### T 7, TSH, CMP, LISANDRA, LIPA, LIPID #### [facility] [address] [place] [address] Dr. Janell Marquez Hematocrit (Bld) [Volume fraction] 48.8 % Normal 42.0-54.0 [facility] Comment on above: Performed By: #### T 7, TSH, CMP, LISANDRA, LIPA, LIPID #### [facility] [address] [place] [address] Dr. Janell Marquez Hemoglobin (Bld) [Mass/Vol] 15.3 g/dL Normal 14.0-18.0 [facility] Comment on above: Performed By: #### T 7, TSH, CMP, LISANDRA, LIPA, LIPID #### [facility] [address] [place] [address] Dr. Janell Marquez IG # 0.02 10e3/ul Normal 0.00-0.03 [facility] Comment on above: Performed By: #### T 7, TSH, CMP, LISANDRA, LIPA, LIPID #### [facility] [address] [place] [address] Dr. Janell Marquez IG % 0.4 % Normal 0.0-0.5 [facility] Comment on above: Performed By: #### T 7, TSH, CMP, LISANDRA, LIPA, LIPID #### [facility] [address] [place] [address] Dr. Janell Marquez LYMPH # 1.3 103/ul Normal 1.2-3.8 [facility] Comment on above: Performed By: #### T 7, TSH, CMP, LISANDRA, LIPA, LIPID #### [facility] [address] [place] [address] Dr. Janell Marquez Lymphocytes/100 WBC (Bld) 29.0 % Normal 20.5-60.0 [facility] Comment on above: Performed By: #### T 7, TSH, CMP, LISANDRA, LIPA, LIPID #### [facility] [address] [place] [address] Dr. Janell Marquez MANUAL DIFF REQ NO Normal [facility] Comment on above: Performed By: #### T 7, TSH, CMP, LISANDRA, LIPA, LIPID #### [facility] [address] [place] [address] Dr. Janell Marquez MCH (RBC) [Entitic mass] 23.5 pg Critically low 25.9-34.0 [facility] Comment on above: Performed By: #### T 7, TSH, CMP, LISANDRA, LIPA, LIPID #### [facility] [address] [place] [address] Dr. Janell Marquez MCHC (RBC) [Mass/Vol] 31.4 g/dL Normal 29.9-35.2 [facility] Comment on above: Performed By: #### T 7, TSH, CMP, LISANDRA, LIPA, LIPID #### [facility] [address] [place] [address] Dr. Janell Marquez MCV (RBC) [Entitic vol] 74.8 fL Critically low 80.0-94.0 [facility] Comment on above: Performed By: #### T 7, TSH, CMP, LISANDRA, LIPA, LIPID #### [facility] [address] [place] [address] Dr. Janell Marquez MONO # 0.3 103/ul Normal 0.3-0.8 [facility] Comment on above: Performed By: #### T 7, TSH, CMP, LISANDRA, LIPA, LIPID #### [facility] [address] [place] [address] Dr. Janell Marquez Monocytes/100 WBC (Bld) 7.4 % Normal 1.7-12.0 [facility] Comment on above: Performed By: #### T 7, TSH, CMP, LISANDRA, LIPA, LIPID #### [facility] [address] [place] [address] [address] Janell Marquez NEUT # 2.9 103/ul Normal 1.4-6.5 [facility] Comment on above: Performed By: #### T 7, TSH, CMP, LISANDRA, LIPA, LIPID #### [facility] [address] [place] [address] [address] Janell Marquez Neutrophils/100 WBC (Bld) 62.1 % Normal 43.0-75.0 [facility] Comment on above: Performed By: #### T 7, TSH, CMP, LISANDRA, LIPA, LIPID #### [facility] [address] [place] [address] [address] Janell Marquez Platelet mean volume (Bld) [Entitic vol] 9.3 fL Critically low 9.5-13.5 [facility] Comment on above: Performed By: #### T 7, TSH, CMP, LISANDRA, LIPA, LIPID #### [facility] [address] [place] [address] [address] Janell Marquez PLT 203 103/ul Normal 150-450 [facility] Comment on above: Performed By: #### T 7, TSH, CMP, LISANDRA, LIPA, LIPID #### [facility] [address] [place] [address] [address] Janell Marquez RBC 6.52 106/ul Critically high 4.70-6.10 [facility] Comment on above: Performed By: #### T 7, TSH, CMP, LISANDRA, LIPA, LIPID #### [facility] [address] [place] [address] [address] Janell Marquez WBC 4.6 103/ul Normal 4.0-11.0 [facility] Comment on above: Performed By: #### T 7, TSH, CMP, LISANDRA, LIPA, LIPID #### [facility] [address] [place] [address] [address] Janell Marquez CRPon 10-21-2022 CRP [Mass/Vol] mg/L Normal <=1.0 [facility] Comment on above: Performed By: #### T 7, TSH, CMP, LISANDRA, LIPA, LIPID #### [facility] [address] [place] [address] [address] Janell Marquez SED RATE WESTERGRENon 2022 SED RATE 30 mm/hr Critically high <=20 [facility] Comment on above: Performed By: #### T 7, TSH, CMP, LISANDRA, LIPA, LIPID #### [facility] [address] [place] [address] [address] Janell Marquez URIC ACID SERUMon 10-21-2022 Urate [Mass/Vol] 4.3 mg/dL Normal 3.5-7.2 [facility] Comment on above: Performed By: #### T 7, TSH, CMP, LISANDRA, LIPA, LIPID #### [facility] [address] [place] [address] [address] Janell Marquez CSF MANUAL DIFFon 10-12-2022 Diff Total, CSF 57 cells counted [facility] Lymph%, CSF 91 % High 50 - 90 % [facility] [place]%, CSF 9 % Low 10 - 50 % [facility] ic Cell count panel (CSF)on Clarity (CSF) Clear Clear [facility] Clarity (Unsp spec) Not Indicated Clear [facility] Color (CSF) Colorless Colorless [facility] Color (Spun CSF) Not Indicated Colorless [facility] CSF Tube Number Tube 1 [facility] RBC Manual cnt (CSF) [#/Vol] 3 cells/uL 0 - 5 cells/uL [facility] WBC Manual cnt (CSF) [#/Vol] 1 cells/uL 0 - 5 cells/uL [facility] GLUCOSE CSFon 10-12-2022 Glucose (CSF) [Mass/Vol] 57 mg/dL 40 - 70 mg/dL [facility] PROTEIN CSFon 10-12-2022 Protein (CSF) [Mass/Vol] 32 mg/dL 15 - 45 mg/dL [facility] TOURTELLOTTE BLOODon 10-12- 023 [facility] ic ALLIED HEALTHon 05-07-2022 ALLIED HEALTH HNO ID: [id number] Author: Nicole Girard truss maker Service: Radiology Author Type: Barge Engineer Type: Allied Health Filed: 05/07/2022 1:54 [...] DATA: Not applicable SIGNED BY: Nicole Huffman, truss maker May 07, 2022 1:31 PM [facility] MRI 3D POST PROCESSINGon MRI 3D POST PROCESSING * * *Final Report* * * DATE OF EXAM: May 07 2022 1:47PM [facility] 0280 - MRI 3D POST PROCESSING / PROCEDURE REASON: Cognitive changes * * * * Physician Interpretation * * * * EXAMINATION: MRI BRAIN WO IVCON, MRI 3D POST PROCESSING CLINICAL HISTORY: Cognitive changes TECHNIQUE: Axial FLORIDALMA FLAIR, FLORIDALMA T2, diffusion and susceptibility weighted imaging without contrast, using the ADNI dementia protocol and 3-D post-processing using the [employer] software at an independent workstation with concurrent [...] = Focal Lesions 2 = Beginning of [place] 3 = Diffuse Involvement of Entire Region [...] results from the analysis charts for details. Client Leader: MARISELA Transcribe Date/Time: May 07 2022 2:51P Dictated by : MANISH PRICE MD This examination was interpreted and the report reviewed and electronically signed by: MANISH PRICE MD on May 07 2022 3:06PM EST [id number] CN Normal [facility] MRI BRAIN WO IVCONon 022 MRI BRAIN WO IVCON * * *Final Report* * * DATE OF EXAM: May 07 2022 1:47PM [facility] 0294 - MRI BRAIN WO IVCON / PROCEDURE REASON: Cognitive changes * * * * Physician Interpretation * * * * EXAMINATION: MRI BRAIN WO IVCON, MRI 3D POST PROCESSING CLINICAL HISTORY: Cognitive changes TECHNIQUE: Axial FLORIDALMA FLAIR, FLORIDALMA T2, diffusion and susceptibility weighted imaging without contrast, using the ADNI dementia protocol and 3-D post-processing using the [employer] software at an independent workstation with concurrent [...] = Focal Lesions 2 = Beginning of [place] 3 = Diffuse Involvement of Entire Region [...] results from the analysis charts for details. Client Leader: MARISELA Transcribe Date/Time: May 07 2022 2:51P Dictated by : MANISH PRICE MD This examination was interpreted and the report reviewed and electronically signed by: MANISH PRICE MD on May 07 2022 3:06PM EST [id number] CN Normal [facility] No Panel Informationon 05-07 [facility] MRI BRAIN WO W CONon 022 MRI [...] LUCIE TOWNSEND Date: 2022-01-21 17:28 Normal [facility] US CAROTID ART BILon 022 US [...] LUCIE TOWNSEND Date: 2022-01-21 17:18 Normal [facility] H PYLORI ANTIBODY IGGon 12-19 H. PYLORI IGG ABS 0.72 Index Value Normal 0.00-0.79 [facility] Comment on above: Result Comment: Nega tive <0.80 Equivocal 0.80 - 0.89 Positive >0.89 Performed By: #### H PYLLC #### [facility] [address] [place] [address] [address] Janell Marquez INSULINon 01-13-2022 Insulin 15.8 uIU/mL Normal 2.6-24.9 [facility] Comment on above: Performed By: #### T 7, TSH, CMP, LISANDRA, LIPA, LIPID #### [facility] [address] [place] [address] [address] Janell Marquez VIT D 25-OH LABCORPon 2021 Vitamin D, 25-Hydroxy 29.7 ng/mL Critically low 30.0-100.0 [facility] Comment on above: Result Comment: Nelsy min D deficiency has been defined by the [place] of [employer] and an Endocrine Society practice guideline as a level of serum 25-OH vitamin D less than 20 ng/mL (1,2). The Endocrine Society went on to further define vitamin D insufficiency as a level between 21 and 29 ng/mL (2). 1. IOM ([place] of [employer]). 2010. Dietary reference intakes for calcium and D. [place]: The National Academies Press. 2. Kevin MF, Mey [place], Bharat SPENCER, et al. Evaluation, treatment, and prevention of vitamin D deficiency: an Endocrine Society clinical practice guideline. JCEM. 2010; 96(7):1911-30. Performed By: #### T 7, TSH, CMP, LISANDRA, LIPA, LIPID #### [facility] [address] [place] [address] [address] Janell Marquez AMMONIAon 01-12-2022 Ammonia (P) [Mass/Vol] ug/dL Critically low 11-32 [facility] Comment on above: Performed By: #### T 7, TSH, CMP, LISANDRA, LIPA, LIPID #### [facility] [address] [place] [address] [address] Janell Marquez AMYLASEon 01-12-2022 Amylase [Catalytic activity/Vol] 49 U/L Normal 25-115 [facility] Comment on above: Performed By: #### T 7, TSH, CMP, LISANDRA, LIPA, LIPID #### [facility] [address] [place] [address] Dr. Janell Marquez CBC AUTO DIFFon 01-12-2022 BASO # 0.0 103/ul Normal 0.0-0.1 [facility] Comment on above: Performed By: #### T 7, TSH, CMP, LISANDRA, LIPA, LIPID #### [facility] [address] [place] [address] Dr. Janell Marquez Basophils/100 WBC (Bld) 0.2 % Normal 0.2-2.0 [facility] Comment on above: Performed By: #### T 7, TSH, CMP, LISANDRA, LIPA, LIPID #### [facility] [address] [place] [address] Dr. Janell Marquez EO # 0.0 103/ul Normal 0.0-0.7 [facility] Comment on above: Performed By: #### T 7, TSH, CMP, LISANDRA, LIPA, LIPID #### [facility] [address] [place] [address] Dr. Janell Marquez Eosinophils/100 WBC (Bld) 0.3 % Critically low 0.9-7.0 [facility] Comment on above: Performed By: #### T 7, TSH, CMP, LISANDRA, LIPA, LIPID #### [facility] [address] [place] [address] Dr. Janell Marquez Erythrocyte distribution width (RBC) [Ratio] 16.0 % Critically high 11.0-15.0 [facility] Comment on above: Performed By: #### T 7, TSH, CMP, LISANDRA, LIPA, LIPID #### [facility] [address] [place] [address] Dr. Janell Marquez Hematocrit (Bld) [Volume fraction] 46.8 % Normal 42.0-54.0 [facility] Comment on above: Performed By: #### T 7, TSH, CMP, LISANDRA, LIPA, LIPID #### [facility] [address] [place] [address] Dr. Janell Marquze Hemoglobin (Bld) [Mass/Vol] 14.9 g/dL Normal 14.0-18.0 [facility] Comment on above: Performed By: #### T 7, TSH, CMP, LISANDRA, LIPA, LIPID #### [facility] [address] [address] [address] Janell Marquez IG # 0.01 10e3/ul Normal 0.00-0.03 [facility] Comment on above: Performed By: #### T 7, TSH, CMP, LISANDRA, LIPA, LIPID #### [facility] [address] [place] [address] Dr. Janell Marquez IG % 0.2 % Normal 0.0-0.5 [facility] Comment on above: Performed By: #### T 7, TSH, CMP, LISANDRA, LIPA, LIPID #### [facility] [address] [place] [address] Dr. Janell Marquez LYMPH # 1.0 103/ul Critically low 1.2-3.8 [facility] Comment on above: Performed By: #### T 7, TSH, CMP, LISANDRA, LIPA, LIPID #### [facility] [address] [place] [address] Dr. Janell Marquez Lymphocytes/100 WBC (Bld) 16.2 % Critically low 20.5-60.0 [facility] Comment on above: Performed By: #### T 7, TSH, CMP, LISANDRA, LIPA, LIPID #### [facility] [address] [place] [address] Dr. Janell Marquez MANUAL DIFF REQ NO Normal [facility] Comment on above: Performed By: #### T 7, TSH, CMP, LISANDRA, LIPA, LIPID #### [facility] [address] [place] [address] Dr. Janell Marquez MCH (RBC) [Entitic mass] 23.9 pg Critically low 25.9-34.0 [facility] Comment on above: Performed By: #### T 7, TSH, CMP, LISANDRA, LIPA, LIPID #### [facility] [address] [place] [address] Dr. Janell Marquez MCHC (RBC) [Mass/Vol] 31.8 g/dL Normal 29.9-35.2 [facility] Comment on above: Performed By: #### T 7, TSH, CMP, LISANDRA, LIPA, LIPID #### [facility] [address] [address] [address] Janell Marquez MCV (RBC) [Entitic vol] 75.0 fL Critically low 80.0-94.0 [facility] Comment on above: Performed By: #### T 7, TSH, CMP, LISANDRA, LIPA, LIPID #### [facility] [address] [place] [address] Dr. Janell Marquez MONO # 0.4 103/ul Normal 0.3-0.8 [facility] Comment on above: Performed By: #### T 7, TSH, CMP, LISANDRA, LIPA, LIPID #### [facility] [address] [place] [address] Dr. Janell Marquez Monocytes/100 WBC (Bld) 6.0 % Normal 1.7-12.0 [facility] Comment on above: Performed By: #### T 7, TSH, CMP, LISANDRA, LIPA, LIPID #### [facility] [address] [place] [address] Dr. Janell Marquez NEUT # 4.5 103/ul Normal 1.4-6.5 [facility] Comment on above: Performed By: #### T 7, TSH, CMP, LISANDRA, LIPA, LIPID #### [facility] [address] [place] [address] Dr. Janell Marquez Neutrophils/100 WBC (Bld) 77.1 % Critically high 43.0-75.0 [facility] Comment on above: Performed By: #### T 7, TSH, CMP, LISANDRA, LIPA, LIPID #### [facility] [address] [place] [address] Dr. Janell Marquez Platelet mean volume (Bld) [Entitic vol] 9.3 fL Critically low 9.5-13.5 [facility] Comment on above: Performed By: #### T 7, TSH, CMP, LISANDRA, LIPA, LIPID #### [facility] [address] [place] [address] Dr. Janell Marquez PLT 202 103/ul Normal 150-450 [facility] Comment on above: Performed By: #### T 7, TSH, CMP, LISANDRA, LIPA, LIPID #### [facility] [address] [place] [address] Dr. Janell Marquez RBC 6.24 106/ul Critically high 4.70-6.10 [facility] Comment on above: Performed By: #### T 7, TSH, CMP, LISANDRA, LIPA, LIPID #### [facility] [address] [address] [address] Janell Marquez WBC 5.9 103/ul Normal 4.0-11.0 [facility] Comment on above: Performed By: #### T 7, TSH, CMP, LISANDRA, LIPA, LIPID #### [facility] [address] [place] [address] Dr. Janell Marquez FREE THYROXINE INDEX T7on FTI 3.14 Normal 1.30-4.50 [facility] Comment on above: Performed By: #### T 7, TSH, CMP, LISANDRA, LIPA, LIPID #### [facility] [address] [place] [address] Dr. Janell Marquez T3U 32.0 % Critically low 33.0-40.0 [facility] Comment on above: Performed By: #### T 7, TSH, CMP, LISANDRA, LIPA, LIPID #### [facility] [address] [place] [address] Dr. Janell Marquez T4 [Mass/Vol] 9.80 ug/dL Normal 4.50-12.10 [facility] Comment on above: Performed By: #### T 7, TSH, CMP, LISANDRA, LIPA, LIPID #### [facility] [address] [place] [address] Dr. Janell Marquez GLYCOHEMOGLOBIN A1Con 2021 ADA RECOMMENDATION SEE BELOW Normal [facility] Comment on above: Result Comment: ADA RECOMMENDED LIMIT 4.0 - 6.0 ADA THERAPEUTIC TARGET < 7.0 ACTION SUGGESTED > 7.0 Performed By: #### A 1C #### [facility] [address] [place] [address] Dr. Janell Marquez Glucose [Mass/Vol] 120 mg/dL Normal [facility] Comment on above: Performed By: #### A 1C #### [facility] [address] [place] [address] Dr. Janell Marquez HbA1c (Bld) [Mass fraction] 5.8 % Normal 4.5-6.2 [facility] Comment on above: Performed By: #### A 1C #### [facility] [address] [place] [address] Dr. Janell Marquez IRONon 01-12-2022 Iron [Mass/Vol] 70.0 ug/dL Normal 65.0-175.0 [facility] Comment on above: Performed By: #### T 7, TSH, CMP, LISANDRA, LIPA, LIPID #### [facility] [address] [place] [address] Dr. Janell Marquez LIPASEon 01-12-2022 Lipase [Catalytic activity/Vol] 72.0 U/L Critically low 73.0-393.0 [facility] Comment on above: Performed By: #### T 7, TSH, CMP, LISANDRA, LIPA, LIPID #### [facility] [address] [place] [address] Dr. Janell Marquez LIPID PROFILEon 01-12-2022 CHOL-HDL RATIO NORM SEE BELOW Normal [facility] Comment on above: Result Comment: 3.3 - 4.4 LOW RISK 4.4 - 7.1 AVERAGE RISK 7.1 - 11.0 MODERATE RISK >11.0 HIGH RISK Performed By: #### T 7, TSH, CMP, LISANDRA, LIPA, LIPID #### [facility] [address] [place] [address] Dr. Janell Marquez Cholesterol [Mass/Vol] 220 mg/dL Critically high <=200 [facility] Comment on above: Performed By: #### T 7, TSH, CMP, LISANDRA, LIPA, LIPID #### [facility] [address] [place] [address] Dr. Janell Marquez Cholesterol in HDL [Mass/Vol] 47 mg/dL Normal 40-60 [facility] Comment on above: Performed By: #### T 7, TSH, CMP, LISANDRA, LIPA, LIPID #### [facility] [address] [address] [address] Janell Marquez Cholesterol in LDL [Mass/Vol] 157.4 mg/dL Normal [facility] Comment on above: Performed By: #### T 7, TSH, CMP, LISANDRA, LIPA, LIPID #### [facility] [address] [address] [address] Janell Marquez Cholesterol.total/Cho lesterol in HDL [Mass ratio] 4.7 {ratio} Normal [facility] Comment on above: Performed By: #### T 7, TSH, CMP, LISANDRA, LIPA, LIPID #### [facility] [address] [address] [address] Janell Marquez HDL NORMAL > or = 60 mg/dl - LOW CARDIOVASCULAR RISK <40 mg/dl - HIGH CARDIOVASCULAR RISK Normal [facility] Comment on above: Performed By: #### T 7, TSH, CMP, LISANDRA, LIPA, LIPID #### [facility] [address] [place] [address] Dr. Janell Marquez LDL CALC NORMAL SEE BELOW Normal [facility] Comment on above: Result Comment: <100 mg/dl OPTIMAL 100 - 129 mg/dl NEAR OR ABOVE OPTIMAL 130 - 159 mg/dl BORDERLINE HIGH 160 - 189 mg/dl HIGH >190 mg/dl VERY HIGH Performed By: #### T 7, TSH, CMP, LISANDRA, LIPA, LIPID #### [facility] [address] [address] [address] Janell Marquez Triglyceride [Mass/Vol] 78 mg/dL Normal <=150 [facility] Comment on above: Performed By: #### T 7, TSH, CMP, LISANDRA, LIPA, LIPID #### [facility] [address] [address] [address] Janell Marquez VLDL CALC 15.6 mg/dL Normal [facility] Comment on above: Performed By: #### T 7, TSH, CMP, LISANDRA, LIPA, LIPID #### [facility] [address] [address] [address] Janell Marquez PROF 14(COMP METB)on 022 Albumin [Mass/Vol] 3.5 g/dL Normal 3.4-5.0 [facility] Comment on above: Performed By: #### T 7, TSH, CMP, LISANDRA, LIPA, LIPID #### [facility] [address] [place] [address] Dr. Janell Marquez Albumin/Globulin [Mass ratio] 0.9 {ratio} Normal [facility] Comment on above: Performed By: #### T 7, TSH, CMP, LISANDRA, LIPA, LIPID #### [facility] [address] [place] [address] Dr. Janell Marquez ALP [Catalytic activity/Vol] 69 U/L Normal 46-116 [facility] Comment on above: Performed By: #### T 7, TSH, CMP, LISANDRA, LIPA, LIPID #### [facility] [address] [place] [address] Dr. Janell Marquez ALT [Catalytic activity/Vol] 19 U/L Normal 16-63 [facility] Comment on above: Performed By: #### T 7, TSH, CMP, LISANDRA, LIPA, LIPID #### [facility] [address] [place] [address] Dr. Janell Marquez Anion gap [Moles/Vol] 12.1 mmol/L Normal [facility] Comment on above: Performed By: #### T 7, TSH, CMP, LISANDRA, LIPA, LIPID #### [facility] [address] [place] [address] Dr. Janell Marquez AST [Catalytic activity/Vol] 15 U/L Normal 15-37 [facility] Comment on above: Performed By: #### T 7, TSH, CMP, LISANDRA, LIPA, LIPID #### [facility] [address] [place] [address] Dr. Janell Marquez Bilirubin [Mass/Vol] 0.8 mg/dL Normal 0.2-1.0 [facility] Comment on above: Performed By: #### T 7, TSH, CMP, LISANDRA, LIPA, LIPID #### [facility] [address] [place] [address] Dr. Janell Marquez Calcium [Mass/Vol] 8.5 mg/dL Normal 8.5-10.1 [facility] Comment on above: Performed By: #### T 7, TSH, CMP, LISANDRA, LIPA, LIPID #### [facility] [address] [address] [address] Janell Marquez Chloride [Moles/Vol] 105 mmol/L Normal 98-107 [facility] Comment on above: Performed By: #### T 7, TSH, CMP, LISANDRA, LIPA, LIPID #### [facility] [address] [address] [address] Janell Marquez CO2 [Moles/Vol] 28.0 mmol/L Normal 21.0-32.0 [facility] Comment on above: Performed By: #### T 7, TSH, CMP, LISANDRA, LIPA, LIPID #### [facility] [address] [address] [address] Janell Marquez Creatinine [Mass/Vol] 1.11 mg/dL Normal 0.70-1.30 [facility] Comment on above: Performed By: #### T 7, TSH, CMP, LISANDRA, LIPA, LIPID #### [facility] [address] [address] [address] Janell Marquez EGFR-AF ICELANDIC >60 Normal >=60 [facility] Comment on above: Performed By: #### T 7, TSH, CMP, LISANDRA, LIPA, LIPID #### [facility] [address] [address] [address] Janell Marquez EGFR-NON AF ICELANDIC >60 Normal >=60 [facility] Comment on above: Performed By: #### T 7, TSH, CMP, LISANDRA, LIPA, LIPID #### [facility] [address] [address] [address] Janell Marquez Globulin (S) [Mass/Vol] 3.7 g/dL Normal [facility] Comment on above: Performed By: #### T 7, TSH, CMP, LISANDRA, LIPA, LIPID #### [facility] [address] [address] [address] Janell Maqruez Glucose [Mass/Vol] 115 mg/dL Critically high 74-106 [facility] Comment on above: Performed By: #### T 7, TSH, CMP, LISANDRA, LIPA, LIPID #### [facility] [address] [place] [address] Dr. Janell Marquez Potassium [Moles/Vol] 4.1 mmol/L Normal 3.5-5.1 [facility] Comment on above: Performed By: #### T 7, TSH, CMP, LISANDRA, LIPA, LIPID #### [facility] [address] [place] [address] Dr. Janell Marquez Protein [Mass/Vol] 7.2 g/dL Normal 6.4-8.2 [facility] Comment on above: Performed By: #### T 7, TSH, CMP, LISANDRA, LIPA, LIPID #### [facility] [address] [place] [address] Dr. Janell Marquez Sodium [Moles/Vol] 141 mmol/L Normal 136-145 [facility] Comment on above: Performed By: #### T 7, TSH, CMP, LISANDRA, LIPA, LIPID #### [facility] [address] [place] [address] Dr. Janell Marquez Urea nitrogen [Mass/Vol] 16.0 mg/dL Normal 7.0-18.0 [facility] Comment on above: Performed By: #### T 7, TSH, CMP, LISANDRA, LIPA, LIPID #### [facility] [address] [place] [address] Dr. Janell Marquez Urea nitrogen/Creatinine [Mass ratio] 14.4 mg/mg Normal [facility] Comment on above: Performed By: #### T 7, TSH, CMP, LISANDRA, LIPA, LIPID #### [facility] [address] [place] [address] Dr. Janell Marquez TSHon 01-12-2022 TSH 1.412 uIU/mL Normal 0.358-3.740 [facility] Comment on above: Performed By: #### T 7, TSH, CMP, LISANDRA, LIPA, LIPID #### [facility] [address] [place] [address] Dr. Janell Marquez VIT B12 AND FOLATEon Cobalamin (Vitamin B12) [Mass/Vol] 411.0 pg/mL Normal 193.0-986.0 [facility] Comment on above: Performed By: #### T 7, TSH, CMP, LISANDRA, LIPA, LIPID #### [facility] [address] [address] [address] Janell Marquez FOLATE 11.10 ng/mL Normal 8.60-58.90 [facility] Comment on above: Performed By: #### T 7, TSH, CMP, LISANDRA, LIPA, LIPID #### [facility] [address] [address] [address] Janell Marquez BASIC METABOLIC PANELon Calcium [Mass/Vol] 8.3 mg/dL Low 8.6-10.3 [facility] Comment on above: Order Comment: No: D o not add to previous draw Performed By: #### 0 0071 #### [facility] [address] [place] [address], [place] Chloride [Moles/Vol] 104 mmol/L Normal 98-[address] [facility] Comment on above: Order Comment: No: D o not add to previous draw Performed By: #### 0 0071 #### [facility] [address] [place] [address], [place] CO2 [Moles/Vol] 29 mmol/L Normal 21-31 [facility] Comment on above: Order Comment: No: D o not add to previous draw Performed By: #### 0 0071 #### [facility] [address] [place] [address], [place] Creatinine [Mass/Vol] 0.81 mg/dL Normal 0.70-1.[address] [facility] Comment on above: Order Comment: No: D o not add to previous draw Performed By: #### 0 0071 #### [facility] [address] [place] [address], [place] GFR/1.73 sq M.predicted among blacks MDRD (S/P/Bld) [Vol rate/Area] mL/min/{1.73_m2} Normal >[address] [facility] Comment on above: Order Comment: No: D o not add to previous draw Performed By: #### 0 0071 #### [facility] [address] [place] [address], [place] GFR/1.73 sq M.predicted among non-blacks MDRD (S/P/Bld) [Vol rate/Area] mL/min/{1.73_m2} Normal >[address] [facility] Comment on above: Order Comment: No: D o not add to previous draw Performed By: #### 0 0071 #### [facility] [address] [place] [address], [place] Glucose [Mass/Vol] 144 mg/dL High 70-100 [facility] above: Order Comment: No: D o not add to previous draw Performed By: #### 0 0071 #### [facility] [address] [place] [address], [place] Potassium [Moles/Vol] 3.6 mmol/L Normal 3.5-5.[address] [facility] Comment on above: Order Comment: No: D o not add to previous draw Performed By: #### 0 0071 #### [facility] [address] [place] [address], [place] Sodium [Moles/Vol] 139 mmol/L Normal 136-145 [facility] Comment on above: Order Comment: No: D o not add to previous draw Performed By: #### 0 0071 #### [facility] [address] [place] [address], [place] Urea nitrogen [Mass/Vol] 9 mg/dL Normal 7-[address] [facility] Comment on above: Order Comment: No: D o not add to previous draw Performed By: #### 0 0071 #### [facility] [address] CBC COMPLETE BLOOD COUNTon 0 07-26-2020 Erythrocyte distribution width (RBC) [Ratio] 14.6 % Normal 11.5-15.[address] [facility] Comment on above: Order Comment: No: D o not add to previous draw Performed By: #### 0 0071 #### [facility] [address] [place] [address], [facility] Hematocrit (Bld) [Volume fraction] 38.8 % Low 39.0-50.[address] [facility] Comment on above: Order Comment: No: D o not add to previous draw Performed By: #### 0 0071 #### [facility] [address] Hemoglobin (Bld) [Mass/Vol] 12.1 g/dL Low 13.0-17.[address] [facility] Comment on above: Order Comment: No: D o not add to previous draw Performed By: #### 0 0071 #### [facility] [address] [place] [address], [facility] MCH (RBC) [Entitic mass] 23.7 pg Low 27.0-33.[address] [facility] Comment on above: Order Comment: No: D o not add to previous draw Performed By: #### 0 0071 #### [facility] [address] [place] [address], [facility] MCHC (RBC) [Mass/Vol] 31.2 g/dL Low 32.0-35.[address] [facility] Comment on above: Order Comment: No: D o not add to previous draw Performed By: #### 0 0071 #### [facility] [address] [place] [address], [facility] MCV (RBC) [Entitic vol] 75.9 fL Low 82.0-98.[address] [facility] Comment on above: Order Comment: No: D o not add to previous draw Performed By: #### 0 0071 #### [facility] [address] [place] [address], [facility] Nucleated RBC/100 WBC (Bld) [Ratio] 0 % Normal 0-[address] [facility] Comment on above: Order Comment: No: D o not add to previous draw Performed By: #### 0 0071 #### [facility] [address] [place] [address], [facility] PLAT CNT 182 10*3/uL Normal 150-400 [facility] Comment on above: Order Comment: No: D o not add to previous draw Performed By: #### 0 0071 #### [facility] [address] [facility] [place] [address], [facility] RBC (Bld) [#/Vol] 5.11 10*6/uL Normal 4.20-5.70 [facility] Comment on above: Order Comment: No: D o not add to previous draw Performed By: #### 0 0071 #### [facility] [address] [facility] [place] [address], [facility] WBC (Bld) [#/Vol] 3.64 10*3/uL Low 4.00-10.60 [facility] Comment on above: Order Comment: No: D o not add to previous draw Performed By: #### 0 0071 #### [facility] [address] [facility] [place] [address], [facility] MAGNESIUM BLOODon 07-26-2020 Magnesium [Mass/Vol] 1.8 mg/dL Low 1.9-2.[address] [facility] Comment on above: Order Comment: No: D o not add to previous draw Performed By: #### 1 0070, [id number] #### [facility] [address] [place] [address], [facility] BASIC METABOLIC PANELon Calcium [Mass/Vol] 8.4 mg/dL Low 8.6-10.3 [facility] Comment on above: Order Comment: No: D o not add to previous draw Performed By: #### 1 69, [id number] #### [facility] [address] [place] [address], [place] Chloride [Moles/Vol] 104 mmol/L Normal 98-[address] [facility] Comment on above: Order Comment: No: D o not add to previous draw Performed By: #### 1 69, [id number] #### [facility] [address] [place] [address], [place] CO2 [Moles/Vol] 27 mmol/L Normal 21-31 [facility] Comment on above: Order Comment: No: D o not add to previous draw Performed By: #### 1 69, 90761 #### [facility] [address] [place] [address], [place] Creatinine [Mass/Vol] 0.83 mg/dL Normal 0.70-1.[address] [facility] Comment on above: Order Comment: No: D o not add to previous draw Performed By: #### 1 69, [id number] #### [facility] [address] [place] [address], [place] GFR/1.73 sq M.predicted among blacks MDRD (S/P/Bld) [Vol rate/Area] mL/min/{1.73_m2} Normal >[address] [facility] Comment on above: Order Comment: No: D o not add to previous draw Performed By: #### 1 69, [id number] #### [facility] [address] [place] [address], [place] GFR/1.73 sq M.predicted among non-blacks MDRD (S/P/Bld) [Vol rate/Area] mL/min/{1.73_m2} Normal >[address] [facility] Comment on above: Order Comment: No: D o not add to previous draw Performed By: #### 1 69, 40763 #### [facility] [address] [place] [address], [facility] Glucose [Mass/Vol] 162 mg/dL High 70-100 [facility] Comment on above: Order Comment: No: D o not add to previous draw Performed By: #### 1 69, [id number] #### [facility] [address] [place] [address], [facility] Potassium [Moles/Vol] 3.4 mmol/L Low 3.5-5.[address] [facility] Comment on above: Order Comment: No: D o not add to previous draw Performed By: #### 1 69, 53959 #### [facility] [address] [place] [id number], [facility] Sodium [Moles/Vol] 137 mmol/L Normal 136-145 [facility] Comment on above: Order Comment: No: D o not add to previous draw Performed By: #### 1 69, 66031 #### [facility] [address] [place] [id number], [facility] Urea nitrogen [Mass/Vol] 18 mg/dL Normal 7-[address] [facility] Comment on above: Order Comment: No: D o not add to previous draw Performed By: #### 1 69, [id number] #### [facility] [address] [place] [id number], [facility] CBC COMPLETE BLOOD COUNTon 0 - Erythrocyte distribution width (RBC) [Ratio] 15.2 % High 11.5-15.[address] [facility] Comment on above: Order Comment: No: D o not add to previous draw Performed By: #### 0 1 #### [facility] [address] [place] [address], [facility] Hematocrit (Bld) [Volume fraction] 40.7 % Normal 39.0-50.[address] [facility] Comment on above: Order Comment: No: D o not add to previous draw Performed By: #### 0 0071 #### [facility] [address] [place] [address], [facility] Hemoglobin (Bld) [Mass/Vol] 12.7 g/dL Low 13.0-17.[address] [facility] Comment on above: Order Comment: No: D o not add to previous draw Performed By: #### 0 0071 #### [facility] [address] [facility] [place] [address], [facility] MCH (RBC) [Entitic mass] 23.3 pg Low 27.0-33.[address] [facility] Comment on above: Order Comment: No: D o not add to previous draw Performed By: #### 0 0071 #### [facility] [address] [place] [address], [facility] MCHC (RBC) [Mass/Vol] 31.2 g/dL Low 32.0-35.[address] [facility] Comment on above: Order Comment: No: D o not add to previous draw Performed By: #### 0 0071 #### [facility] [address] [place] [address], [facility] MCV (RBC) [Entitic vol] 74.8 fL Low 82.0-98.[address] [facility] Comment on above: Order Comment: No: D o not add to previous draw Performed By: #### 0 0071 #### [facility] [address] [place] [address], [facility] Nucleated RBC/100 WBC (Bld) [Ratio] 0 % Normal 0-[address] [facility] Comment on above: Order Comment: No: D o not add to previous draw Performed By: #### 0 0071 #### [facility] [address] [place] [address], [facility] PLAT CNT 207 10*3/uL Normal 150-400 [facility] Comment on above: Order Comment: No: D o not add to previous draw Performed By: #### 0 0071 #### [facility] [address] [place] [address], [facility] RBC (Bld) [#/Vol] 5.44 10*6/uL Normal 4.20-5.70 [facility] Comment on above: Order Comment: No: D o not add to previous draw Performed By: #### 0 0071 #### [facility] [address] WBC (Bld) [#/Vol] 3.05 10*3/uL Low 4.00-10.60 [facility] Comment on above: Order Comment: No: D o not add to previous draw Performed By: #### 0 0071 #### [facility] [address] [facility] [address] MAGNESIUM BLOODon 07-25-2020 Magnesium [Mass/Vol] 1.8 mg/dL Low 1.9-2.[address] [facility] Comment on above: Order Comment: No: D o not add to previous draw Performed By: #### 1 0070, [id number] #### [facility] [address] [facility] POC GLUCOSE LABon 07-25-2020 Glucose [Mass/Vol] 155 mg/dL High 70-100 [facility] Comment on above: Performed By: #### 0 0071, [id number] #### [facility] [address] [facility]. [address] *SARS-CoV-2 COVID-19on 07-24 SARS-CoV-2 (COVID-19) RNA LILLIANA+probe Ql (Unsp spec) Not detected Normal Not Detected [facility] Comment on above: Order Comment: No: D o not add to previous draw Performed By: #### 0 0071, [id number] #### [facility] [address] CBC W/DIFFon 07-24-2020 ABS IMM GRANS 0.0 10*3/uL Normal 0.0-0.2 [facility] Comment on above: Performed By: #### 0 0071 #### [facility] [address] [place] [address], [facility] ABS NEUTROPHILS 2.0 10*3/uL Normal 1.6-7.6 [facility] Comment on above: Performed By: #### 0 0071 #### [facility] [address] [place] [address], [facility] Basophils (Bld) [#/Vol] 0.0 10*3/uL Normal 0.0-0.[address] [facility] Comment on above: Performed By: #### 0 0071 #### [facility] [address] [place] [address], [facility] Basophils/100 WBC (Bld) 0.4 % Normal 0.0-1.[address] [facility] Comment on above: Performed By: #### 0 0071 #### [facility] [address] [facility] [place] [address], [facility] Eosinophils (Bld) [#/Vol] 0.0 10*3/uL Normal 0.0-0.5 [facility] Comment on above: Performed By: #### 0 0071 #### [facility] [address] [place] [address], [facility] Eosinophils/100 WBC (Bld) 0.7 % Normal 0.0-6.[address] [facility] Comment on above: Performed By: #### 0 0071 #### [facility] [address] [place] [address], [facility] Erythrocyte distribution width (RBC) [Ratio] 15.8 % High 11.5-15.[address] [facility] Comment on above: Performed By: #### 0 0071 #### [facility] [address] [place] [address], [facility] Hematocrit (Bld) [Volume fraction] 45.5 % Normal 39.0-50.[address] [facility] Comment on above: Performed By: #### 0 0071 #### [facility] [address] [place] [address], [facility] Hemoglobin (Bld) [Mass/Vol] 14.4 g/dL Normal 13.0-17.[address] [facility] Comment on above: Performed By: #### 0 0071 #### [facility] [address] [place] [address], [facility] IMMATURE GRANS 0.4 % Normal 0.0-1.0 [facility] Comment on above: Performed By: #### 0 0071 #### [facility] [address] [place] [address], [facility] Lymphocytes (Bld) [#/Vol] 0.4 10*3/uL Low 1.2-4.[address] [facility] Comment on above: Performed By: #### 0 0071 #### [facility] [address] Lymphocytes/100 WBC (Bld) 14.5 % Low 20.0-45.[address] [facility] Comment on above: Performed By: #### 0 0071 #### [facility] [address] [place] [address], [facility] MCH (RBC) [Entitic mass] 23.7 pg Low 27.0-33.[address] [facility] Comment on above: Performed By: #### 0 0071 #### [facility] [address] [place] [address], [facility] MCHC (RBC) [Mass/Vol] 31.6 g/dL Low 32.0-35.[address] [facility] Comment on above: Performed By: #### 0 0071 #### [facility] [address] [place] [address], [facility] MCV (RBC) [Entitic vol] 75.0 fL Low 82.0-98.[address] [facility] Comment on above: Performed By: #### 0 0071 #### [facility] [address] [facility] [place] [place] [address], [facility] Monocytes (Bld) [#/Vol] 0.3 10*3/uL Normal 0.1-1.0 [facility] Comment on above: Performed By: #### 0 0071 #### [facility] [address] [facility] [place] [address], [facility] MONOS 12.3 % High 5.0-12.[address] [facility] Comment on above: Performed By: #### 0 0071 #### [facility] [address] [place] [address], [facility] Neutrophils/100 WBC (Bld) 71.7 % Normal 40.0-72.[address] [facility] Comment on above: Performed By: #### 0 0071 #### [facility] [address] [place] [address], [facility] Nucleated RBC/100 WBC (Bld) [Ratio] 0 % Normal 0-[address] [facility] Comment on above: Performed By: #### 0 0071 #### [facility] [address] [facility] [place] [address], [facility] PLAT CNT 225 10*3/uL Normal 150-400 [facility] Comment on above: Performed By: #### 0 0071 #### [facility] [address] [facility] [place] [address], [facility] RBC (Bld) [#/Vol] 6.07 10*6/uL High 4.20-5.70 The [facility] Comment on above: Performed By: #### 0 0071 #### [facility] [address] [place] [address], [facility] WBC (Bld) [#/Vol] 2.76 10*3/uL Low 4.00-10.60 [facility] Comment on above: Performed By: #### 0 0071 #### [facility] [address] [place] [address], [place] COMP METABOLIC PANELon 07-24 Albumin [Mass/Vol] 3.7 g/dL Normal 3.5-5.7 [facility] Comment on above: Performed By: #### 3 5200, 47703, 78328 #### [facility] [address] [place] [address], [place] ALKALINE PHOSPH 58 IU/L Normal 34-104 [facility] Comment on above: Performed By: #### 3 5200, 74146, 99746 #### [facility] [address] [place] [address], [place] ALT [Catalytic activity/Vol] 12 U/L Normal 7-[address] [facility] Comment on above: Performed By: #### 3 5200, 67382, 05901 #### [facility] [address] [place] [address], [place] AST [Catalytic activity/Vol] 15 U/L Normal 13-[address] [facility] Comment on above: Performed By: #### 3 5200, 85156, 61434 #### [facility] [address] [place] [address], [place] Bilirubin [Mass/Vol] 1.3 mg/dL High 0.3-1.[address] [facility] Comment on above: Performed By: #### 3 5200, 90809, 83685 #### [facility] [address] [place] [address], [place] Calcium [Mass/Vol] 8.7 mg/dL Normal 8.6-10.3 [facility] Comment on above: Performed By: #### 3 5200, 86945, 91535 #### [facility] [address] [place] [address], [place] Chloride [Moles/Vol] 99 mmol/L Normal 98-[address] [facility] Comment on above: Performed By: #### 3 5200, 90573, 41212 #### [facility] [address] [place] [address], [place] CO2 [Moles/Vol] 25 mmol/L Normal 21-31 [facility] Comment on above: Performed By: #### 3 5200, 48283, 58348 #### [facility] [address] [place] [address], [place] Creatinine [Mass/Vol] 1.01 mg/dL Normal 0.70-1.[address] [facility] Comment on above: Performed By: #### 3 5200, 60286, 75328 #### [facility] [address] [place] [address], [place] GFR/1.73 sq M.predicted among blacks MDRD (S/P/Bld) [Vol rate/Area] mL/min/{1.73_m2} Normal >[address] [facility] Comment on above: Performed By: #### 3 5200, 39314, 82111 #### [facility] [address] [place] [address], [place] GFR/1.73 sq M.predicted among non-blacks MDRD (S/P/Bld) [Vol rate/Area] mL/min/{1.73_m2} Normal >[address] [facility] Comment on above: Performed By: #### 3 5200, 52947, 92516 #### [facility] [address] [place] [address], [place] Glucose [Mass/Vol] 142 mg/dL High 70-100 [facility] Comment on above: Performed By: #### 3 5200, 68182, 03184 #### [facility] [address] [place] [address], [place] Potassium [Moles/Vol] 3.9 mmol/L Normal 3.5-5.[address] [facility] Comment on above: Performed By: #### 3 5200, 71890, 72366 #### [facility] [address] [facility] [place] [address], [facility] Protein [Mass/Vol] 6.6 g/dL Normal 6.0-8.3 [facility] Comment on above: Performed By: #### 3 5200, 29934, 97338 #### [facility] [address] [facility] [place], [place] [id number] [place] [address] Sodium [Moles/Vol] 134 mmol/L Low 136-145 [facility] Comment on above: Performed By: #### 3 5200, 91355, 43017 #### [facility] [address] [place] [address], [facility] Urea nitrogen [Mass/Vol] 20 mg/dL Normal 7-[address] [facility] Comment on above: Performed By: #### 3 5200, 03505, 00743 #### [facility] [address] [place], [place] [id number] [place] [address] CT ABDOMEN AND PELVIS W IV C ONTRASTon 07-24-2020 CT ABDOMEN AND PELVIS W IV CONTRAST [facility] Department of Radiology [address] [place] [id number] Patient Name: NOÉ JEFFERY : 1965 Sex: M Age: Race: Other Pt. Location: [facility] Patient Status: E Ordered Date: [...] achievable. Electronically signed: Miguelito Balderas. Transcribed by: [email or web address], User Resident: Electronically Signed by: MIGUELITO BALDERAS @ 07/24/2020 04:14 PM Normal The [facility] Comment on above: Order Comment: No: D o not add to previous draw LACTATE BLOODon 07-24-2020 Lactate [Moles/Vol] 1.0 mmol/L Normal 0.5-2.2 [facility] Comment on above: Performed By: #### 1 0054 #### [address] LIPASE BLOODon 07-24-2020 LIPASE 7 Units/L Low 11-82 [facility] Comment on above: Performed By: #### 3 5200, 70667, 88924 #### [address] PORTABLE CHEST 1 VIEWon PORTABLE CHEST 1 VIEW [facility] Department of Radiology [address] [place] [address] Patient Name: NOÉ JEFFERY : 1965 Sex: M Age: Race: Other Pt. Location: [facility] Patient Status: E Ordered Date: [...] indicated. Electronically signed: Miguelito Balderas. Transcribed by: [email or web address], User Resident: Electronically Signed by: MIGUELITO BALDERAS @ 07/24/2020 03:58 PM Normal The [facility] Comment on above: Order Comment: No: D o not add to previous draw TROPONIN-Ion 07-24-2020 Troponin I.cardiac [Mass/Vol] 0.00 ng/mL Normal 0.00-0.04 [facility] Comment on above: Result Comment: REFE RENCE RANGES: 0.00 - 0.14 ng/ml NEGATIVE 0.15 - 0.25 ng/ml INDETERMINATE > 0.25 ng/ml INDICATIVE OF AN M.I. Performed By: #### 3 5200, 77432, 10341 #### [facility] [address] URINALYSIS REFLEXon 07-24-19 Appearance (U) CLEAR Normal CLEAR [facility] Comment on above: Order Comment: No: D o not add to previous draw Performed By: #### 0 0071, 11518 #### [facility] [address] [place] [address], [place] Bilirubin Ql (U) Negative Normal NEGATIVE The [facility] Comment on above: Order Comment: No: D o not add to previous draw Performed By: #### 0 0071, 72834 #### [facility] [address] [place] [address], [place] Color (U) ANEL Abnormal YELLOW [facility] Comment on above: Order Comment: No: D o not add to previous draw Performed By: #### 0 0071, 44987 #### [facility] [address] [place] [address], [place] Glucose Ql (U) Negative Normal NEGATIVE The [facility] Comment on above: Order Comment: No: D o not add to previous draw Performed By: #### 0 0071, 06612 #### [facility] [address] [place] [address], [place] Hemoglobin Ql (U) Negative Normal NEGATIVE The [facility] Comment on above: Order Comment: No: D o not add to previous draw Performed By: #### 0 0071, 29622 #### [facility] [address] [place] [address], [place] KETONE 20 mg/dL Abnormal NEGATIVE The [facility] Comment on above: Order Comment: No: D o not add to previous draw Performed By: #### 0 0071, 32459 #### [facility] [address] [place] [address], [place] LEUK DINO Negative Normal NEGATIVE The [facility] Comment on above: Order Comment: No: D o not add to previous draw Performed By: #### 0 0071, 12863 #### [facility] [address] [place] [address], [place] MICRO NOT DONE Normal The [facility] Comment on above: Order Comment: No: D o not add to previous draw Result Comment: Micr oscopics not performed on urines with negative chemical reactions unless requested in original order Performed By: #### 0 0071, 16941 #### [facility] [address] [place] [address], [facility] Nitrite Ql (U) Negative Normal NEGATIVE The [facility] Comment on above: Order Comment: No: D o not add to previous draw Performed By: #### 0 0071, 01087 #### [facility] [address] [place] [address], [facility] pH (U) 5.0 [pH] Normal 5.0-8.[address] [facility] Comment on above: Order Comment: No: D o not add to previous draw Performed By: #### 0 0071, 80541 #### [facility] [address] [place] [address], [facility] Protein Ql (U) Negative Normal NEGATIVE The [facility] Comment on above: Order Comment: No: D o not add to previous draw Performed By: #### 0 0071, 11706 #### [facility] [address] [facility] [place] [address], [facility] SPEC GRAV 1.084 High 1.015-1.020 The [facility] Comment on above: Order Comment: No: D o not add to previous draw Result Comment: DONE BY DILUTION Performed By: #### 0 0071, 34129 #### [facility] [address] [facility] [place] [address], [facility] BASIC METABOLIC PANELon 02-0 Calcium [Mass/Vol] 8.8 mg/dL Normal 8.6-10.3 [facility] Comment on above: Order Comment: No: D o not add to previous draw Performed By: #### 0 0071, 56313 #### [facility] [address] [place] [id number], [facility] Chloride [Moles/Vol] 103 mmol/L Normal 98-[address] [facility] Comment on above: Order Comment: No: D o not add to previous draw Performed By: #### 0 0071, 17925 #### [facility] [address] [place] [address], [place] CO2 [Moles/Vol] 27 mmol/L Normal 21-31 [facility] Comment on above: Order Comment: No: D o not add to previous draw Performed By: #### 0 0071, 15469 #### [facility] [address] [place] [address], [facility] Creatinine [Mass/Vol] 0.87 mg/dL Normal 0.70-1.30 [facility] Comment on above: Order Comment: No: D o not add to previous draw Performed By: #### 0 0071, 59934 #### [facility] [address] [place] [address], [facility] GFR/1.73 sq M.predicted among blacks MDRD (S/P/Bld) [Vol rate/Area] mL/min/{1.73_m2} Normal >60 [facility] Comment on above: Order Comment: No: D o not add to previous draw Performed By: #### 0 0071, 67545 #### [facility] [address] [place] [address], [place] GFR/1.73 sq M.predicted among non-blacks MDRD (S/P/Bld) [Vol rate/Area] mL/min/{1.73_m2} Normal >60 [facility] Comment on above: Order Comment: No: D o not add to previous draw Performed By: #### 0 0071, 92154 #### [facility] [address] [place] [address], [place] Glucose [Mass/Vol] 156 mg/dL High 70-100 [facility] Comment on above: Order Comment: No: D o not add to previous draw Performed By: #### 0 0071, 79577 #### [facility] [address] [place] [address], [facility] Potassium [Moles/Vol] 3.9 mmol/L Normal 3.5-5.[address] [facility] Comment on above: Order Comment: No: D o not add to previous draw Performed By: #### 0 0071, 21162 #### [facility] [address] [place] [address], [place] Sodium [Moles/Vol] 136 mmol/L Normal 136-145 [facility] Comment on above: Order Comment: No: D o not add to previous draw Performed By: #### 0 0071, 70627 #### [facility] [address] [place] [address], [facility] Urea nitrogen [Mass/Vol] 8 mg/dL Normal 7-[address] [facility] Comment on above: Order Comment: No: D o not add to previous draw Performed By: #### 0 0071, 96887 #### [facility] [address] [place] [id number], [facility] CBC COMPLETE BLOOD COUNTon 0 - Erythrocyte distribution width (RBC) [Ratio] 15.1 % High 11.5-15.[address] [facility] Comment on above: Order Comment: No: D o not add to previous draw Performed By: #### 0 0071 #### [facility] [address] [place] [address], [facility] Hematocrit (Bld) [Volume fraction] 44.1 % Normal 39.0-50.[address] [facility] Comment on above: Order Comment: No: D o not add to previous draw Performed By: #### 0 0071 #### [facility] [address] [place] [address], [facility] Hemoglobin (Bld) [Mass/Vol] 13.4 g/dL Normal 13.0-17.[address] [facility] Comment on above: Order Comment: No: D o not add to previous draw Performed By: #### 0 0071 #### [facility] [address] [place] [address], [facility] MCH (RBC) [Entitic mass] 23.1 pg Low 27.0-33.[address] [facility] Comment on above: Order Comment: No: D o not add to previous draw Performed By: #### 0 0071 #### [facility] [address] [place] [address], [facility] MCHC (RBC) [Mass/Vol] 30.4 g/dL Low 32.0-35.[address] [facility] Comment on above: Order Comment: No: D o not add to previous draw Performed By: #### 0 0071 #### [facility] [address] [facility] [place] [address], [facility] MCV (RBC) [Entitic vol] 76.0 fL Low 82.0-98.[address] [facility] Comment on above: Order Comment: No: D o not add to previous draw Performed By: #### 0 0071 #### [facility] [address] [place] [address], [facility] Nucleated RBC/100 WBC (Bld) [Ratio] 0 % Normal 0-[address] [facility] Comment on above: Order Comment: No: D o not add to previous draw Performed By: #### 0 0071 #### [facility] [address] [facility] [place] [id number], [facility] PLAT CNT 190 10*3/uL Normal 150-400 [facility] Comment on above: Order Comment: No: D o not add to previous draw Performed By: #### 0 0071 #### [facility] [address] [place] [id number], [facility] RBC (Bld) [#/Vol] 5.80 10*6/uL High 4.20-5.70 [facility] Comment on above: Order Comment: No: D o not add to previous draw Performed By: #### 0 0071 #### [facility] [address] [facility] [place] [address], [facility] WBC (Bld) [#/Vol] 7.98 10*3/uL Normal 4.00-10.60 [facility] Comment on above: Order Comment: No: D o not add to previous draw Performed By: #### 0 0071 #### [facility] [address] [place] [address], [facility] MAGNESIUM BLOODon 07-23-2020 Magnesium [Mass/Vol] 1.9 mg/dL Normal 1.9-2.[address] [facility] Comment on above: Order Comment: No: D o not add to previous draw Performed By: #### 0 0071, 01362 #### [facility] [address] [facility] [place] [address], [facility] POC GLUCOSE LABon 07-23-2020 Glucose [Mass/Vol] 140 mg/dL High 70-100 [facility] Comment on above: Performed By: #### 0 0071 #### [facility] [address] [place] [address], [place] Glucose [Mass/Vol] 155 mg/dL High 70-100 [facility] Comment on above: Performed By: #### 0 0071, 05452 #### [facility] [address] [place] [address], [place] Glucose [Mass/Vol] 164 mg/dL High 70-100 [facility] Comment on above: Performed By: #### 0 0071 #### [facility] [address] [place] [address], [facility] BASIC METABOLIC PANELon Calcium [Mass/Vol] 8.3 mg/dL Low 8.6-10.3 [facility] Comment on above: Order Comment: No: D o not add to previous draw Performed By: #### 0 0071, 39930 #### [facility] [address] [place] [address], [facility] Chloride [Moles/Vol] 103 mmol/L Normal 98-[address] [facility] Comment on above: Order Comment: No: D o not add to previous draw Performed By: #### 0 0071, 41827 #### [facility] [address] [place] [address], [place] CO2 [Moles/Vol] 26 mmol/L Normal 21-31 [facility] Comment on above: Order Comment: No: D o not add to previous draw Performed By: #### 0 0071, 65703 #### [facility] [address] [place] [address], [place] Creatinine [Mass/Vol] 0.90 mg/dL Normal 0.70-1.30 [facility] Comment on above: Order Comment: No: D o not add to previous draw Performed By: #### 0 0071, 49777 #### [facility] [address] [place] [address], [place] GFR/1.73 sq M.predicted among blacks MDRD (S/P/Bld) [Vol rate/Area] mL/min/{1.73_m2} Normal >60 [facility] Comment on above: Order Comment: No: D o not add to previous draw Performed By: #### 0 0071, 18683 #### [facility] [address] [place] [address], [place] GFR/1.73 sq M.predicted among non-blacks MDRD (S/P/Bld) [Vol rate/Area] mL/min/{1.73_m2} Normal >[address] [facility] Comment on above: Order Comment: No: D o not add to previous draw Performed By: #### 0 0071, 38564 #### [facility] [address] [place] [address], [place] Glucose [Mass/Vol] 166 mg/dL High 70-100 [facility] Comment on above: Order Comment: No: D o not add to previous draw Performed By: #### 0 0071, 61900 #### [facility] [address] [place] [address], [place] Potassium [Moles/Vol] 4.1 mmol/L Normal 3.5-5.[address] [facility] Comment on above: Order Comment: No: D o not add to previous draw Performed By: #### 0 0071, 65384 #### [facility] [address] [place] [address], [place] Sodium [Moles/Vol] 136 mmol/L Normal 136-145 [facility] Comment on above: Order Comment: No: D o not add to previous draw Performed By: #### 0 0071, 76154 #### [facility] [address] [place] [address], [place] Urea nitrogen [Mass/Vol] 12 mg/dL Normal 7-[address] [facility] Comment on above: Order Comment: No: D o not add to previous draw Performed By: #### 0 0071, 54886 #### [facility] [address] [place] [address], [place] CBC COMPLETE BLOOD COUNTon 0 - Erythrocyte distribution width (RBC) [Ratio] 14.9 % Normal 11.5-15.[address] [facility] Comment on above: Order Comment: No: D o not add to previous draw Performed By: #### 0 0071, 97928 #### [facility] [address] [place] [address], [place] Hematocrit (Bld) [Volume fraction] 42.8 % Normal 39.0-50.[address] [facility] Comment on above: Order Comment: No: D o not add to previous draw Performed By: #### 0 0071, 51292 #### [facility] [address] [place] [address], [place] Hemoglobin (Bld) [Mass/Vol] 13.3 g/dL Normal 13.0-17.[address] [facility] Comment on above: Order Comment: No: D o not add to previous draw Performed By: #### 0 0071, 43592 #### [facility] [address] [facility] [place] [address], [facility] MCH (RBC) [Entitic mass] 23.4 pg Low 27.0-33.[address] [facility] Comment on above: Order Comment: No: D o not add to previous draw Performed By: #### 0 0071, 42685 #### [facility] [address] [place] [address], [facility] MCHC (RBC) [Mass/Vol] 31.1 g/dL Low 32.0-35.[address] [facility] Comment on above: Order Comment: No: D o not add to previous draw Performed By: #### 0 0071, 26594 #### [facility] [address] [facility] [place] [address], [facility] MCV (RBC) [Entitic vol] 75.2 fL Low 82.0-98.[address] [facility] Comment on above: Order Comment: No: D o not add to previous draw Performed By: #### 0 0071, 34638 #### [facility] [address] [facility]. [address] Nucleated RBC/100 WBC (Bld) [Ratio] 0 % Normal 0-[address] [facility] Comment on above: Order Comment: No: D o not add to previous draw Performed By: #### 0 0071, 91763 #### [facility] [address] [facility] [place] [address], [facility] PLAT CNT 211 10*3/uL Normal 150-400 [facility] Comment on above: Order Comment: No: D o not add to previous draw Performed By: #### 0 0071, 85213 #### [facility] [address] [facility] [place] [address], [facility] RBC (Bld) [#/Vol] 5.69 10*6/uL Normal 4.20-5.70 [facility] Comment on above: Order Comment: No: D o not add to previous draw Performed By: #### 0 0071, 65026 #### [facility] [address] [facility]. [address] WBC (Bld) [#/Vol] 8.55 10*3/uL Normal 4.00-10.60 [facility] Comment on above: Order Comment: No: D o not add to previous draw Performed By: #### 0 0071, 78241 #### [facility] [address] MAGNESIUM BLOODon 07-22-2020 Magnesium [Mass/Vol] 2.0 mg/dL Normal 1.9-2.[address] [facility] Comment on above: Order Comment: No: D o not add to previous draw Performed By: #### 0 0071, 79698 #### [facility] [address] [facility]. [address] Operative Reporton Operative Report MR#: [id number] [facility] Pt. Name: Noé Jeffery Room #: [id number] Discharge Date: Birthdate: 1965 OPERATIVE REPORT DATE [...] Izaguirre M.D. Date Trans: 07/21/2020 10:04 P/mmo [id number] cc: Jae Lopez M.D. [address] [id number] Normal [address] [facility] POC GLUCOSE LABon 07-22-2020 Glucose [Mass/Vol] 142 mg/dL High 70-100 [facility] Comment on above: Performed By: #### 0 0071, 05448 #### [facility] [address] [place] [address], [place] Glucose [Mass/Vol] 113 mg/dL High 70-100 [facility] Comment on above: Performed By: #### 0 0071, 60410 #### [facility] [address] [place] [address], [place] Glucose [Mass/Vol] 153 mg/dL High 70-100 [facility] Comment on above: Performed By: #### 0 0071, 04581 #### [facility] [address] [place] [address], [place] Glucose [Mass/Vol] 127 mg/dL High 70-100 [facility] Comment on above: Performed By: #### 0 0071, 37188 #### [facility] [address] [place] [address], [place] Glucose [Mass/Vol] 176 mg/dL High 70-100 [facility] Comment on above: Performed By: #### 0 0071 #### [facility] [address] [place] [address], [place] *MRSA/MSSA DNA NASALon 07-21 *MRSA/MSSA DNA NASAL Clinical Report: (D ) Specimen: NASAL SWAB Collected: 07/21/2020 00:00 Status: Final Last Updated: 07/21/2020 15:28 (1) No collection time noted on specimen or requisition. The collection time recorded is the time of receipt in the lab. MSSA DNA (Final) Methicillin Susceptible Staphylococcus aureus DNA Detected MRSA DNA (Final) Negative Normal [facility] Comment on above: Order Comment: No: D o not add to previous draw Performed By: #### 0 0071, 03393 #### [facility] [address] [facility]. [address] POC GLUCOSE LABon 07-21-2020 Glucose [Mass/Vol] 168 mg/dL High 70-100 [facility] Comment on above: Performed By: #### 0 0071 #### [facility] [address] [facility] [place] [address], [facility] Glucose [Mass/Vol] 211 mg/dL High 70-100 [facility] Comment on above: Performed By: #### 0 0071, 33301 #### [facility] [address] [facility] [place] [address], [facility] Glucose [Mass/Vol] 117 mg/dL High 70-100 [facility] Comment on above: Performed By: #### 0 [id number], [id number] #### [facility] [address] [facility]. [address] *SARS-CoV-2 COVID-19on 07-18 SARS-CoV-2 (COVID-19) RNA LILLIANA+probe Ql (Unsp spec) Not detected Normal Not Detected [facility] Comment on above: Order Comment: No: D o not add to previous draw Performed By: #### [id number], [id number] #### [facility] [address] [facility] [place] [address], [facility] BASIC METABOLIC PANELon 06-21 Calcium [Mass/Vol] 9.2 mg/dL Normal 8.6-10.3 [facility] Comment on above: Performed By: #### 0 [id number] #### [facility] [address] [facility] [place] [address], [facility] Chloride [Moles/Vol] 100 mmol/L Normal 98-[address] [facility] Comment on above: Performed By: #### 0 [id number] #### [facility] [address] [place] [address], [facility] CO2 [Moles/Vol] 30 mmol/L Normal 21-31 [facility] Comment on above: Performed By: #### 0 [id number] #### [facility] [address] [facility] [place] [address], [facility] Creatinine [Mass/Vol] 1.01 mg/dL Normal 0.70-1.[address] [facility] Comment on above: Performed By: #### 0 [id number] #### [facility] [address] [place] [address], [place] GFR/1.73 sq M.predicted among blacks MDRD (S/P/Bld) [Vol rate/Area] mL/min/{1.73_m2} Normal >[address] [facility] Comment on above: Performed By: #### 0 [id number] #### [facility] [address] [place] [address], [place] GFR/1.73 sq M.predicted among non-blacks MDRD (S/P/Bld) [Vol rate/Area] mL/min/{1.73_m2} Normal >[address] [facility] Comment on above: Performed By: #### 0 [id number] #### [facility] [address] [place] [address], [place] Glucose [Mass/Vol] 121 mg/dL High 70-100 [facility] Comment on above: Performed By: #### 0 [id number] #### [facility] [address] [place] [address], [facility] Potassium [Moles/Vol] 4.4 mmol/L Normal 3.5-5.[address] [facility] Comment on above: Performed By: #### 0 [id number] #### [facility] [address] [facility] [place] [address], [facility] Sodium [Moles/Vol] 135 mmol/L Low 136-145 [facility] Comment on above: Performed By: #### 0 [id number] #### [facility] [address] [place] [address], [facility] Urea nitrogen [Mass/Vol] 14 mg/dL Normal 7-[address] [facility] Comment on above: Performed By: #### 0 [id number] #### [facility] [address] CBC W/DIFFon 07-18-2020 ABS IMM GRANS 0.0 10*3/uL Normal 0.0-0.2 [facility] Comment on above: Performed By: #### 0 [id number] #### [facility] [address] [place] [address], [facility] ABS NEUTROPHILS 2.5 10*3/uL Normal 1.6-7.6 The [facility] Comment on above: Performed By: #### 0 [id number] #### [facility] [address] [place] [address], [facility] Basophils (Bld) [#/Vol] 0.0 10*3/uL Normal 0.0-0.[address] [facility] Comment on above: Performed By: #### 0 [id number] #### [facility] [address] [place] [address], [facility] Basophils/100 WBC (Bld) 0.9 % Normal 0.0-1.[address] [facility] Comment on above: Performed By: #### 0 [id number] #### [facility] [address] Eosinophils (Bld) [#/Vol] 0.1 10*3/uL Normal 0.0-0.[address] [facility] Comment on above: Performed By: #### 0 [id number] #### [facility] [address] [place] [address], [facility] Eosinophils/100 WBC (Bld) 1.2 % Normal 0.0-6.[address] [facility] Comment on above: Performed By: #### 0 [id number] #### [facility] [address] Erythrocyte distribution width (RBC) [Ratio] 14.8 % Normal 11.5-15.[address] [facility] Comment on above: Performed By: #### 0 [id number] #### [facility] [address] Hematocrit (Bld) [Volume fraction] 47.6 % Normal 39.0-50.[address] [facility] Comment on above: Performed By: #### 0 [id number] #### [facility] [address] Hemoglobin (Bld) [Mass/Vol] 14.5 g/dL Normal 13.0-17.[address] [facility] Comment on above: Performed By: #### 0 [id number] #### [facility] [address] [place] [address], [facility] IMMATURE GRANS 0.2 % Normal 0.0-1.0 [facility] Comment on above: Performed By: #### 0 [id number] #### [facility] [address] [place] [address], [facility] Lymphocytes (Bld) [#/Vol] 1.4 10*3/uL Normal 1.2-4.[address] [facility] Comment on above: Performed By: #### 0 [id number] #### [facility] [address] [place] [address], [facility] Lymphocytes/100 WBC (Bld) 32.9 % Normal 20.0-45.[address] [facility] Comment on above: Performed By: #### 0 [id number] #### [facility] [address] [place] [address], [facility] MCH (RBC) [Entitic mass] 23.2 pg Low 27.0-33.[address] [facility] Comment on above: Performed By: #### 0 [id number] #### [facility] [address] [facility] [place] [address], [facility] MCHC (RBC) [Mass/Vol] 30.5 g/dL Low 32.0-35.[address] [facility] Comment on above: Performed By: #### 0 [id number] #### [facility] [address] [place] [address], [facility] MCV (RBC) [Entitic vol] 76.0 fL Low 82.0-98.[address] [facility] Comment on above: Performed By: #### 0 [id number] #### [facility] [address] [facility] [place] [address], [facility] Monocytes (Bld) [#/Vol] 0.3 10*3/uL Normal 0.1-1.[address] [facility] Comment on above: Performed By: #### 0 [id number] #### [facility] [address] [facility] [place] [address], [facility] MONOS 7.5 % Normal 5.0-12.[address] [facility] Comment on above: Performed By: #### 0 [id number] #### [facility] [address] [facility] [place] [address], [facility] Neutrophils/100 WBC (Bld) 57.3 % Normal 40.0-72.[address] [facility] Comment on above: Performed By: #### 0 [id number] #### [facility] [address] [place] [address], [facility] Nucleated RBC/100 WBC (Bld) [Ratio] 0 % Normal 0-[address] [facility] Comment on above: Performed By: #### 0 [id number] #### [facility] [address] [place] [address], [facility] PLAT CNT 222 10*3/uL Normal 150-400 [facility] Comment on above: Performed By: #### 0 [id number] #### [facility] [address] RBC (Bld) [#/Vol] 6.26 10*6/uL High 4.20-5.70 The [facility] Comment on above: Performed By: #### 0 [id number] #### [facility] [address] WBC (Bld) [#/Vol] 4.28 10*3/uL Normal 4.00-10.60 [facility] Comment on above: Performed By: #### 0 [id number] #### [facility] [address] PROTHROMBIN TIMEon 1 INR Coag (PPP) [Relative time] 0.95 {INR} Normal 0.91-1.16 [facility] Comment on above: Result Comment: ACCC [...] CHEST 1995;[id number]. Performed By: #### 0 [id number], [id number] #### [facility] [address] [place] [address], [facility] PT Coag (PPP) [Time] 12.7 s Normal 12.3-14.[address] [facility] Comment on above: Result Comment: ALL RESULTS MUST BE INTERPRETED WITH RESPECT TO BLOOD DRAWING ARTIFACT OR DILUTION ERROR OF ANTICOAGULANT AT THE TIME OF SAMPLING. Performed By: #### 0 [id number], [id number] #### [facility] [address] Vital Signs Date Time Vital Sign Value Performing Clinician Facility 07-22-2024 08:01-0500 Diastolic blood pressure 70 mm[Hg] Suzanne Shipley MD Work Phone: [facility] 07-22-2024 08:01-0500 Heart rate 92 /min Suzanne Shipley MD Work Phone: [facility] 07-22-2024 08:01-0500 SaO2% (BldA) [Mass fraction] 95 % Suzanne Shipley MD Work Phone: [facility] 07-22-2024 08:01-0500 Systolic blood pressure 105 mm[Hg] Suzanne Shipley MD Work Phone: [facility] 07-22-2024 05:00-0500 Body temperature 97.7 [degF] Suzanne Shipley MD Work Phone: [facility] 07-22-2024 05:00-0500 Respiratory rate 15 /min Suzanne Shipley MD Work Phone: [facility] 07-12-2024 07:00-0500 Body mass index (BMI) [Ratio] 30.78 kg/m2 Suzanne Shipley MD Work Phone: [facility] 07-12-2024 07:00-0500 Body weight 83.9 kg Suzanne Shipley MD Work Phone: [facility] 06-21-2024 10:23-0500 Heart rate 69 /min Danni Lue [facility] 06-21-2024 10:23-0500 SaO2% (BldA) [Mass fraction] 98 % Danni Lue [facility] 06-21-2024 10:23-0500 Diastolic blood pressure 88 mm[Hg] Danni Lue [facility] 06-21-2024 10:23-0500 Mean blood pressure 104 mm[Hg] Danni Lue [facility] 06-21-2024 10:23-0500 Systolic blood pressure 135 mm[Hg] Danni Lue [facility] 03-15-2024 14:28-0400 Body height 165.1 cm MD Jae Lopez Work Phone[facility] 03-15-2024 14:28-0400 Body weight 73.93 kg MD Jae Lopez Work Phone: [facility] 01-11-2024 09:54-0400 Blood Pressure Location Danni Lue [facility] 01-11-2024 09:54-0400 Body temperature 98.6 [degF] Danni Lue [facility] 01-11-2024 09:54-0400 Diastolic blood pressure 72 mm[Hg] Danni Lue [facility] 01-11-2024 09:54-0400 Heart rate 57 /min Danni Lue [facility] 01-11-2024 09:54-0400 Respiratory rate 16 /min Danni Montgomerye [facility] 01-11-2024 09:54-0400 Systolic blood pressure 119 mm[Hg] Danni Lue [facility] 10-12-2022 12:01-0400 Diastolic blood pressure 74 mm[Hg] Miguelito Chicas APRN.PUBLISHING SPECIALIST Work Phone: [facility] 10-12-2022 12:01-0400 Heart rate 58 /min Miguelito Chicas APRN.PUBLISHING SPECIALIST Work Phone: [facility] 10-12-2022 12:01-0400 Systolic blood pressure 117 mm[Hg] Miguelito Chicas APRN.PUBLISHING SPECIALIST Work Phone: [facility] 04-30-2022 10:56-0500 Body weight 86.23 kg Gera Brianaibalas DO Work Phone: [facility] 04-30-2022 10:56-0500 Diastolic blood pressure 91 mm[Hg] Gera Brianaibalas DO Work Phone: [facility] 04-30-2022 10:56-0500 Heart rate 82 /min Gera Warrenibalas DO Work Phone: [facility] 04-30-2022 10:56-0500 SaO2% (BldA) [Mass fraction] 97 % Gera Brianaibalas DO Work Phone: [facility] 04-30-2022 10:56-0500 Systolic blood pressure 139 mm[Hg] Gera Bravolas DO Work Phone: [facility] 04-26-2022 03:51-0500 Body height 165.1 cm Roosevelt Merlos MD Work Phone: [facility] 04-26-2022 03:51-0500 Body weight 83.6 kg Roosevelt Merlos MD Work Phone: [facility] 04-22-2022 16:41-0400 Diastolic blood pressure 100 mm[Hg] Brenda Francis EDUCATION SALES CONSULTANT.PUBLISHING SPECIALIST Work Phone: [facility] 04-22-2022 16:41-0400 Systolic blood pressure 156 mm[Hg] Brenda Francis EDUCATION SALES CONSULTANT.PUBLISHING SPECIALIST Work Phone: [facility] 04-22-2022 16:17-0400 Body temperature 98.29 [degF] Brenda Francis EDUCATION SALES CONSULTANT.PUBLISHING SPECIALIST Work Phone: [facility] 04-22-2022 16:17-0400 Body weight 86.27 kg Brenda Francis EDUCATION SALES CONSULTANT.PUBLISHING SPECIALIST Work Phone: [facility] 04-22-2022 16:17-0400 Heart rate 98 /min Brenda Francis EDUCATION SALES CONSULTANT.PUBLISHING SPECIALIST Work Phone: [facility] 04-22-2022 16:17-0400 SaO2% (BldA) [Mass fraction] 100 % Brenda Francis EDUCATION SALES CONSULTANT.PUBLISHING SPECIALIST Work Phone: [facility] Encounters Encounter Date Encounter Type Care Provider Facility Start: 07-30-2024 End: 07-30-2024 ambulatory FIDELINA FISHER Facility:[facility] Start: 07-22-2024 End: 07-22-2024 Evaluation and management of inpatient CHANDLER Murillo LOUIE [facility] Start: 07-20-2024 End: 07-20-2024 Telephone encounter Briana Mcdermott MD Work Phone: Neurology Start: 07-18-2024 End: 07-20-2024 Telephone encounter Narciso Guerra MD Work Phone: Neurology Comment on above: Patient Question Start: 07-17-2024 End: 07-18-2024 Telephone encounter Narciso Guerra MD Work Phone: Neurology Comment on above: Patient Question Start: 07-12-2024 End: 07-12-2024 Telephone encounter Kelly Johnson [facility] Comment on above: patient concern Start: 07-11-2024 ambulatory Danni Graham Facility:[facility] Start: 07-10-2024 ambulatory [facility] Start: 07-10-2024 End: 07-10-2024 Evaluation and management of inpatient CECILE HENRY [facility] Start: 07-08-2024 End: 07-08-2024 Evaluation and management of inpatient [facility] Start: 07-08-2024 End: 07-22-2024 Evaluation and management of inpatient [facility] Start: 07-06-2024 End: 07-06-2024 Evaluation and management of inpatient KHALIF VALERIO [facility] Start: 07-06-2024 End: 07-22-2024 Evaluation and management of inpatient Nichol Heath MD Work Phone: [facility] - GEN 8 Acute Comment on above: Dementia with behavi oral disturbance ([facility]) (Primary Dx); Status post colostomy, follow-up exam ([facility]) Start: 07-03-2024 ambulatory [facility] Start: 07-03-2024 End: 07-05-2024 Emergency department patient visit [facility] Start: 06-25-2024 ambulatory Elliott [facility]o [facility] Start: 06-24-2024 End: 06-24-2024 Emergency department patient visit MAITE MORRIS [facility] Start: 06-21-2024 End: 06-21-2024 ambulatory Danni Graham [facility] Start: 06-21-2024 End: 06-21-2024 Patient encounter procedure Danni Graham [facility] Start: 05-02-2024 End: 06-27-2024 Pre-admission assessment Danni Graham [facility] Start: 03-15-2024 End: 03-15-2024 Patient encounter procedure MD Jae Lopez Work Phone: [facility] [place] Work Phone: Start: 03-15-2024 End: 03-15-2024 ambulatory MD Jae Lopez Work Phone: [facility] Work Phone: Start: 03-09-2024 End: 03-09-2024 Patient Msg Lisandra Gomez EDUCATION SALES CONSULTANT.PUBLISHING SPECIALIST Work Phone: Neurology Comment on above: refill Start: 03-09-2024 End: 03-09-2024 Refill Lorri Plascencia MD Work Phone: Neurology Comment on above: Refill Request Start: 01-25-2024 End: 01-25-2024 ambulatory Danni Graham Facility:[facility] Start: 01-25-2024 End: 01-25-2024 Off-Site Danni M. Valentinae [facility] Start: 01-11-2024 End: 01-11-2024 ambulatory Danni M. Lue Facility:[facility] Start: 01-11-2024 End: 01-11-2024 Patient encounter procedure [facility] Start: 12-21-2023 ambulatory Danni Lue Facility:[facility] Start: 12-06-2023 Refill Lorri orellana MD Work Phone: Neurology Comment on above: Refill Request donepezil refill Start: 03-07-2023 Patient entered into trial Tabby Naqvi Research Coordinator [facility] Start: 03-07-2023 Telephone encounter Tabby locke Research Coordinator Neurology Comment on above: Research ([facility] (IRB [id number])) Start: 02-08-2023 E-mail encounter fro m caregiver Sonal Weinstein APRN.PUBLISHING SPECIALIST Work Phone: [facility] Start: 02-08-2023 Follow-up encounter Sonal Beltran APRN.PUBLISHING SPECIALIST Work Phone: Neurology Comment on above: sleep follow up Start: 02-08-2023 Patient entered into trial Tabby Naqvi Research Coordinator [facility] Start: 02-08-2023 Telephone encounter Tabby locke Research Coordinator Neurology Comment on above: Research ([facility] (IRB [id number]) Interest) Start: 02-04-2023 Telephone encounter Sonal Beltran EDUCATION SALES CONSULTANT.PUBLISHING SPECIALIST Work Phone: Neurology Comment on above: PAP Therapy Follow U p (12/18/22 - 01/16/[address] FROM DME ) Start: 02-02-2023 Refill Lorri orellana MD Work Phone: Neurology Comment on above: Refill Request Start: 01-13-2023 Telephone encounter Kary Gaxiola RN Work Phone: Neurology Comment on above: Returning Patient's Call Start: 12-03-2022 Telephone encounter Sonal Beltran EDUCATION SALES CONSULTANT.PUBLISHING SPECIALIST Work Phone: Neurology Comment on above: PAP Rx Faxed (DME: [facility] ) Start: 12-02-2022 End: 12-02-2022 Telemedicine consultation with patient Sonal Weinstein APRN.PUBLISHING SPECIALIST Work Phone: [facility] Start: 12-02-2022 End: 12-02-2022 ambulatory Lorri Plascencia MD Work Phone: Neurology Comment on above: Forms from [employer] Obstructive sleep ap carol (Primary Dx); Primary central sleep apnea; Hyperlipidemia, unspecified hyperlipidemia type Start: 12-02-2022 E-mail encounter chris m caregiver Lorri Plascencia MD Work Phone: [facility] Start: 11-17-2022 End: 11-17-2022 ambulatory Lorri Plascencia MD Work Phone: Neurology Comment on above: Alzheimer's disease (HCC) (Primary Dx) Start: 11-17-2022 End: 11-17-2022 Telemedicine consultation with patient Lorri Plascencia MD Work Phone: [facility] Start: 10-21-2022 End: 10-22-[address] JAE LOPEZ . Facility: Start: 10-12-2022 End: 10-12-2022 Patient encounter procedure Miguelito Chicas EDUCATION SALES CONSULTANT.PUBLISHING SPECIALIST Work Phone: Neurology Comment on above: Memory loss (Primary Dx); Encounter for lumbar puncture Start: 10-12-2022 End: 10-12-2022 Patient encounter status Miguelito Chicas APRN.PUBLISHING SPECIALIST Work Phone: Neurology Start: 08-12-2022 Chart abstracting Leah Mckeon RN Ne urology Start: 08-11-2022 End: 08-11-2022 ambulatory Lorri Plascencia MD Work Phone: Neurology Comment on above: Memory loss (Primary Dx) Start: 08-11-2022 End: 08-11-2022 Telemedicine consultation with patient Lorri Plascencia MD Work Phone: [facility] Start: 08-10-2022 E-mail encounter fro m caregiver [facility] Provider [facility] Start: 08-10-2022 Patient encounter procedure [facility] Provider Neurology Comment on above: cancel appointment Start: 07-21-2022 End: 07-21-2022 ambulatory Lorri Plascencia MD Work Phone: Neurology Comment on above: Memory loss Start: 07-21-2022 End: 07-21-2022 Telemedicine consultation with patient Lorri Plascencia MD Work Phone: [facility] Start: 05-07-2022 ambulatory NARCISO GUERRA Facility:[facility] Start: 05-07-2022 End: 05-07-2022 Subsequent hospital visit by physician [facility] (Istat/3t) Work Phone: [facility] MRI Comment on above: Cognitive changes [R 41.89] Start: 04-30-2022 End: 04-30-2022 Patient encounter procedure Gera Cardona DO Work Phone: Neurology Comment on above: SHELBY (obstructive sle ep apnea) (Primary Dx) Start: 04-28-2022 ambulatory Narciso Guerra MD Work Phone: Neurology Comment on above: sleep study results Start: 04-28-2022 E-mail encounter chris m caregiver Narciso Guerra MD Work Phone: [facility] Start: 04-27-2022 ambulatory Narciso Guerra MD Work Phone: Neurology Comment on above: lab results Start: 04-27-2022 E-mail encounter chris m caregiver Narcsio Guerra MD Work Phone: [facility] Start: 04-25-2022 Chart abstracting Roosevelt Merlos MD Work Phone: Neurology Start: 04-22-2022 End: 04-22-2022 Office outpatient visit 15 minutes Brenda Blanco APRN.PUBLISHING SPECIALIST Work Phone: [facility] Comment on above: Bilateral impacted c [...] Evaluation and management of inpatient JAE LOPEZ Facility:[facility] Start: 07-21-2020 End: 07-23-2020 ambulatory NAYA IZAGUIRRE Facility:[facility] Procedures Date Procedure Procedure Detail Performing [...] Start: 10-12-2022 TOURTELLOTTE BLOOD Og zaina Chicas APRN.PUBLISHING SPECIALIST Work Phone: Start: 10-12-2022 Cell count misc body fluids w/differential count Miguelito Chicas APRN.PUBLISHING SPECIALIST Work Phone: Start: 10-12-2022 CSF MANUAL DIFF Miguelito Chicas APRN.PUBLISHING SPECIALIST Work Phone: Start: 10-12-2022 Glucose body fluid o ther than blood Miguelito Chicas APRN.PUBLISHING SPECIALIST Work Phone: Start: 05-07-2022 MRI 3D [...] H/O: colostomy Status post colostomy, follow-up exam ([facility]) Nichol Heath MD Work Phone: Repair of artery Danni Graham Plan of Treatment Date Care Activity Detail Author Start: 11-23-2029 DTaP,Tdap and Td Vaccines (2 - Td or Tdap) DTaP,Tdap and Td Vaccines (2 - Td or Tdap) [facility] Start: 11-23-2029 Urine microalbumin profile DTaP,Tdap,Td Vaccine (2 - Td or Tdap) [facility] Start: 07-17-2027 Diabetes Screening Diabetes Screenin [facility] Start: 07-11-2025 Tobacco Screening Tobacco Screening [facility] Start: 07-10-2025 Adult BMI Screening Adult BMI Screen ing [facility] Start: 04-22-2025 DIABETES SCREEN DIABETES SCREEN [facility] Start: 04-22-2025 Diabetes Screening Diabetes Screenin g [facility] Start: 01-17-2025 End: 07-20-2025 MR Brain WO and W contrast IV MR brain with and without contrast Imaging Routine Dementia with behavioral disturbance ([facility]) Expected: 01/17/2025 (Approximate), Expires: 07/20/2025 [facility] Work Phone: Comment on above: Expected: 01/17/2025 (Approximate), Expires: 07/20/2025 Start: 12-18-2024 End: 12-18-2024 Patient encounter procedure 12/18/2024 2:10 PM EDT Office Visit [facility] [address] [place] [phone] Flip Villar MD [address] [place] [phone] [facility] Start: 07-30-2024 End: 07-30-2024 Patient encounter procedure 07/30/2024 12:40 PM EST Office Visit Rehab [facility] [address] [place] [address] Fidelina Fisher, EDUCATION SALES CONSULTANT.PUBLISHING SPECIALIST [address] [place] [address] [facility] Comment on above: TBI (Traumatic Brain Injury) Start: 02-19-2024 Covid-19 Vaccine ( season) Covid-19 Vaccine ( season) [facility] Start: 02-19-2024 COVID-19 Vaccine ( season) COVID-19 Vaccine ( season) [facility] Start: 02-19-[address] [facility] Start: 06-20-2023 Behavioral Health Screening Behavioral Health Screening [facility] Start: 02-18-2023 Covid-19 Vaccine ( season) Covid-19 Vaccine ( season) [facility] Start: 02-18-2023 Influenza vaccination C [facility] Start: 10-12-2022 End: 12-12-2022 ADMARK PHOSPHO-TAU TOTAL-TAU/AB42 CSF [facility] Work Phone: Comment on above: Expected: 10/12/2022 , Expires: 12/12/2022 Start: 10-12-2022 End: 12-12-2022 Reagin Ab [Titer] in Cerebral spinal fluid by VDRL [facility] Work Phone: Comment on above: Expected: 10/12/2022 , Expires: 12/12/2022 Start: 08-11-2022 End: 10-11-2022 Cell count panel - Cerebral spinal fluid CSF CELL COUNT Lab Routine Memory loss Expected: 08/11/2022, Expires: 10/11/2022 [facility] Work Phone: Comment on above: Expected: 08/11/2022 , Expires: 10/11/2022 Start: 08-11-2022 End: 10-11-2022 Glucose [Mass/volume] in Cerebral spinal fluid GLUCOSE CSF Lab Routine Memory loss Expected: 08/11/2022, Expires: 10/11/2022 [facility] Work Phone: Comment on above: Expected: 08/11/2022 , Expires: 10/11/2022 Start: 08-11-2022 End: 10-11-2022 MISC SEND OUT TST 1 MISC SEND OUT TST 1 Lab Routine Memory loss Expected: 08/11/2022, Expires: 10/11/2022 [facility] Work Phone: Comment on above: Expected: 08/11/2022 , Expires: 10/11/2022 Start: 08-11-2022 End: 10-11-2022 Protein [Mass/volume] in Cerebral spinal fluid PROTEIN CSF Lab Routine Memory loss Expected: 08/11/2022, Expires: 10/11/2022 [facility] Work Phone: Comment on above: Expected: 08/11/2022 , Expires: 10/11/2022 Start: 08-11-2022 End: 10-11-2022 Reagin Ab [Titer] in Cerebral spinal fluid by VDRL VDRL CSF Lab Routine Memory loss Expected: 08/11/2022, Expires: 10/11/2022 [facility] Work Phone: Comment on above: Expected: 08/11/2022 , Expires: 10/11/2022 Start: 08-11-2022 End: 10-11-2022 TOURTELLOTTE BLOOD TOURTELLOTTE BLOOD Lab Routine Memory loss Expected: 08/11/2022, Expires: 10/11/2022 [facility] Work Phone: Comment on above: Expected: 08/11/2022 , Expires: 10/11/2022 Start: 06-20-2022 [facility] Start: 02-18-2022 Influenza vaccination INFLUENZA (#1) [facility] Start: 06-20-2021 DEPRESSION ASSESSMENT DEPRESSION ASS ESSMENT [facility] Start: 05-29-2021 COVID-19 VACCINE (3 - Booster for Pfizer series) COVID-19 VACCINE (3 - Booster for Pfizer series) [facility] Start: 05-29-2021 COVID-19 VACCINE (3 - Pfizer series) COVID-19 VACCINE (3 - Pfizer series) [facility] Start: 2020 PROSTATE CANCER SCREENING DISCUSSION PROSTATE CANCER SCREENING DISCUSSION [facility] Start: 2020 Prostate specific antigen measurement Prostate Cancer Screening Discussion [facility] Start: 2015 Administration of varicella zoster vaccine Zoster (Shingles) Vaccine (1 of 2) [facility] Start: 2015 Pneumococcal Vaccine : 50+ (1 of 1 - PCV) Pneumococcal Vaccine: 50+ (1 of 1 - PCV) [facility] Start: 2015 SHINGRIX VACCINE (1 of 2) SHINGRIX VACCINE (1 of 2) [facility] Start: 2010 COLOGUARD (FIT-DNA) COLOGUARD (FIT-D NA) [facility] Start: 2010 Colonoscopy COLONOSCOPY [facility] Start: 2010 COLORECTAL CANCER SCREENING COLORECTAL CANCER SCREENING [facility] Start: [address] COLONOGRAPHY [facility] Start: 2010 DIABETES SCREEN DIABETES SCREEN [facility] Start: 2010 FECAL OCCULT BLOOD FECAL OCCULT BLOO D [facility] Start: 2010 Screening for malign ant neoplasm of colon [facility] Start: 2010 [facility] Start: 2000 Lipid 1996 panel - S flakita or Plasma Lipid Screening [facility] Start: 2000 Lipid panel Lipid Screening [facility] Start: 2000 LIPID SCREEN LIPID SCREEN [facility] Start: 1984 Hepatitis B Vaccine (1 of 3 - 19+ 3-dose series) Hepatitis B Vaccine (1 of 3 - 19+ 3-dose series) [facility] Start: 1984 Urine microalbumin profile [facility] Start: 1983 Adult BMI Follow Up Plan Adult BMI Follow Up Plan [facility] Start: 1983 Anxiety Screening Anxiety Screening [facility] Start: 1983 Depression Screening Depression Scre ing [facility] Start: 1983 HEPATITIS C SCREENING HEPATITIS C [facility] Start: 1983 Hepatitis C screening Hepatitis C [facility] Start: 1983 HIV SCREENING HIV SCREENING [facility] Start: 1977 Depression Screening Depression Scre ening [facility] Start: 1965 HEPATITIS B (1 of 3 - 3-dose series) HEPATITIS B (1 of 3 - 3-dose series) [facility] Start: 1965 Hepatitis B Vaccine (1 of 3 - 3-dose series) Hepatitis B Vaccine (1 of 3 - 3-dose series) [facility] End: 07-06-2024 ECG 12 lead ECG 12 lead ECG Routine Once for 1 Occurrences starting 07/06/2024 until 07/06/2024 [facility] Comment on above: Once for 1 Occurrenc es starting 07/06/2024 until 07/06/2024 End: 08-11-2023 LUMBAR PUNCTURE/YESICA LUMBAR PUNCTURE/YESICA NEUROLOGY Routine Memory loss 1 Occurrences starting 08/11/2022 until 08/11/2023 [facility] Work Phone: Comment on above: 1 Occurrences starti ng 08/11/2022 until 08/11/2023 End: 10-13-2023 LUMBAR PUNCTURE/YESICA LUMBAR PUNCTURE/YESICA NEUROLOGY Routine Memory loss 1 Occurrences starting 10/12/2022 until 10/13/2023 [facility] Work Phone: Comment on above: 1 Occurrences starti ng 10/12/2022 until 10/13/2023 Oxygen Therapy - Maintain SpO2: 90%; *MULTIPLE DRUM SANDER HELPER Guidelines for O2: Yes; Document: \[employer].org\epi c\EPIC_Reference\Orders\ Respiratory Care Guidelines\CPG Oxygen 2022.pdf Oxygen Therapy - Maintain SpO2: 90%; *MULTIPLE DRUM SANDER HELPER Guidelines for O2: Yes; Document: \[employer].org\ep ic\EPIC_Reference\Order s\Respiratory Care Guidelines\CPG Oxygen 2022.pdf Respiratory Care Routine As Needed until discontinued starting 07/06/2024 [facility] Comment on above: As Needed until disc ontinued starting 07/06/2024 End: 01-01-2024 PAP TITRATION PSG (CPAP, BIPAP, ASV) PAP TITRATION PSG (CPAP, BIPAP, ASV) Procedures Routine Obstructive sleep apnea 1 Occurrences starting 12/02/2022 until 01/01/2024 [facility] Work Phone: Comment on above: 1 Occurrences starti ng 12/02/2022 until 01/01/2024 End: 07-09-2024 Prion Markers, Creutzfeldt-Osei Disease(14-3-3 Protein Tau, Total), CSF [facility] Work Phone: Comment on above: Once for 1 Occurrenc es starting 07/09/2024 until 07/09/2024 End: 07-06-2024 Pulse oximetry, spot On current oxygen flow Pulse oximetry, spot On current oxygen flow Respiratory Care Routine Once for 1 Occurrences starting 07/06/2024 until 07/06/2024 [employer] Work Phone: Comment on above: Once for 1 Occurrenc es starting 07/06/2024 until 07/06/2024 Removal impacted cer umen irrigation/lvg unilat AMBULATORY EAR LAVAGE/IRRIGATION Procedures Routine Bilateral impacted cerumen Ordered: 04/22/2022 [facility] Work Phone: Comment on above: Ordered: 04/22/2022 TOURTELLOTTE CSF TOURTELLOTTE CS F Lab Routine Memory loss Ordered: 08/11/2022 [facility] Work Phone: Comment on above: Ordered: 08/11/2022 [facility] Immunizations Immunization Date Immunization Notes Care Provider Genna amaro 11-24-2019 tetanus toxoid, redu zenia diphtheria toxoid, and acellular pertussis vaccine, adsorbed Kelly Johnson [facility] Payers Date Payer Category Payer Medicare DEVOTED MEDICARE DEVOTED HEALTH [place] PPO [id number] 2024-Present [phone] [address] SHREYA WILDER [address] PPO [id number] 2024 Medicare HMO DEVOTED HEALTH M EDICARE ADVANTAGE [id number] 2024 Medicare [id number] 2024 Self-pay 2024 Unknown [id number] 2024 Unknown [id number] 2021 Unknown [id number] 1.13.159.2.7.3. [id number] 1965 Unknown [id number] 2.16.840.1.961235.3.579.2.647 1965 Unknown [id number] 2.16.840.1.793667.3.579.2.647 1965 Unknown [id number] 2.16.840.1.847341.3.579.2.593 1965 Unknown [id number] 2.16.840.1.272206.3.579.2.593 1965 Unknown [id number] 2.16.840.1.458887.3.579.2.593 1965 Unknown [id number] 2.16.840.1.661723.3.579.2.128 1965 Unknown [id number] 2.16.840.1.372382.3.579.2.128 1965 Unknown [id number] 2.16.840.1.467616.3.579.2.1285 1965 Unknown [id number] 2.16.840.1.740503.3.579.2.1285 1965 Unknown [id number] 2.16.840.1.130923.3.579.2.128 1965 Unknown [id number] 2.16.840.1.379775.3.579.2.128 1965 Unknown [id number] 2.16.840.1.434580.3.579.2.1285 1965 Unknown [id number] 2.16.840.1.896391.3.579.2.128 1965 Unknown [id number] 2.16.840.1.354504.3.579.2.727 1965 Unknown [id number] 2.16.840.1.732598.3.579.2.727 1965 Unknown [id number] 2.16.840.1.728276.3.579.2.7 1965 Unknown [id number] 2.16.840.1.185295.3.579.2.128 1965 Unknown [id number] 2.16.840.1.941048.3.579.2.128 1965 Unknown [id number] 2.16.840.1.162257.3.579.2.1286 1965 Unknown [id number] 2.16.840.1.138006.3.579.2.1286 1965 Unknown [id number] 2.16.840.1.687460.3.579.2.1286 1965 Unknown [id number] 2.16.840.1.243317.3.579.2.1286 1965 Unknown [id number] 2.16.840.1.799269.3.579.2.1286 1965 Unknown [id number] 2.16.840.1.173584.3.579.2.1286 1959 Unknown [id number] 1959 Unknown [id number] Unknown [id number] 2.16.840.1.659879.3.579.2.531 Unknown [id number] 2.16.840.1.994715.3.579.2.531 Social History Date Type Detail Facility Start: 09-12-2018 End: 04-22-2022 Tobacco smoking status NHIS Never smoked tobacco [facility] Start: 09-12-2018 End: 04-22-2022 Tobacco use and exposure Smokeless tobacco non-user [facility] Start: 04-22-2022 End: 10-12-2022 Alcohol intake Ex-drinker (finding) [facility] Start: 1965 Sex Assigned At Not on file [facility] Start: 04-12-2022 End: 05-07-2022 Exposure to SARS-CoV-2 (event) Not sure [facility] Start: 07-31-2020 End: 10-12-2022 History of Social function [facility] Start: 07-31-2020 End: 10-12-2022 Tobacco use panel [facility] Adult Depression Screening Assessment 2 [facility] Start: 1965 Sex Assigned At Male [facility] Start: 07-11-2024 End: 07-17-2024 Alcoholic beverage intake Current non-drinker of alcohol (finding) [facility] Start: 01-23-2015 Sex Male (finding) [facility] Medical Equipment Procedure Code Equipment Code [...] Assessment Result Facility 06-21-2024 Functional Status No [facility] 01-11-2024 Functional Status N/A [facility] Mental Status Date Assessment Result Facility [facility] Clinical Notes 07-24-2020 to 07-22-2024 [...] wheelchair to be driven home by . [facility] 07-22-2024 Plan of care note Problem: Safety [...] at the bedside 7. Instruct patient/ patient client relations representative about use of safety devices 8. Include patient/ patient client relations representative in decisions related to safety Outcome: Adequate for Discharge Problem: Knowledge Deficit Goal: Patient/patient client relations representative demonstrates understanding of disease process, [...] Score of =/> 25 or indicated by [facility] Assessment Goal: Patient should be free from fall Description: Interventions: 1. Lawson to environment 2. Hourly rounds addressing the [...] non-skid footwear 11. Teach patient and patient client relations representative to maintain environment for safety [...] (cane, walker) within reach 19. Request patient client relations representative bring adaptive equipment/mobility aids from home or obtain and provide as needed 20. Consult pharmacy regarding effects of med's affecting mobility, cognition, and alternatives 21. Obtain physician order for PT if risk factors associated with mobility are present 22. Obtain physician order for OT as appropriate 23. Utilize diversional activities 24. Educate patient and patient client relations representative how to maintain a safe environment during visitation times (notify nurse prior to leaving bedside) 25. Consider appropriateness of medical or non-medical radiation therapist 26. Set up voiding schedule as appropriate (every 2 hours) Outcome: Adequate for Discharge RS' [facility] Get [facility] 07-22-2024 Miscellaneous Notes Problem: Safety Goal: [...] at the bedside 7. Instruct patient/ patient client relations representative about use of safety devices 8. Include patient/ patient client relations representative in decisions related to safety Outcome: Adequate for Discharge Problem: Knowledge Deficit Goal: Patient/patient client relations representative demonstrates understanding of disease process, [...] Score of =/> 25 or indicated by [facility] Assessment Goal: Patient should be free from fall Description: Interventions: 1. Lawson to environment 2. Hourly rounds addressing the [...] non-skid footwear 11. Teach patient and patient client relations representative to maintain environment for safety [...] (cane, walker) within reach 19. Request patient client relations representative bring adaptive equipment/mobility aids from home or obtain and provide as needed 20. Consult pharmacy regarding effects of med's affecting mobility, cognition, and alternatives 21. Obtain physician order for PT if risk factors associated with mobility are present 22. Obtain physician order for OT as appropriate 23. Utilize diversional activities 24. Educate patient and patient client relations representative how to maintain a safe environment during visitation times (notify nurse prior to leaving bedside) 25. Consider appropriateness of medical or non-medical radiation therapist 26. Set up voiding schedule as appropriate [...] at the bedside 7. Instruct patient/ patient client relations representative about use of safety devices 8. Include patient/ patient client relations representative in decisions related to safety Outcome: Progressing Note: Evaluation of progress towards goal: pt remains free from injury. Family at bedside. Problem: Knowledge Deficit Goal: Patient/patient client relations representative demonstrates understanding of disease process, [...] Score of =/> 25 or indicated by [facility] Assessment Goal: Patient should be free from fall Description: Interventions: 1. Lawson to environment 2. Hourly rounds addressing the [...] non-skid footwear 11. Teach patient and patient client relations representative to maintain environment for safety [...] (cane, walker) within reach 19. Request patient client relations representative bring adaptive equipment/mobility aids from home or obtain and provide as needed 20. Consult pharmacy regarding effects of med's affecting mobility, cognition, and alternatives 21. Obtain physician order for PT if risk factors associated with mobility are present 22. Obtain physician order for OT as appropriate 23. Utilize diversional activities 24. Educate patient and patient client relations representative how to maintain a safe environment during visitation times (notify nurse prior to leaving bedside) 25. Consider appropriateness of medical or non-medical radiation therapist 26. Set up voiding schedule as appropriate (every 2 hours) Outcome: Progressing Note: Evaluation of progress towards goal: pt remains free from falls. Fall precautions in place and family at bedside Problem: Moderate - High Risk Fall Score Description: [place] Fall Score of =/> 25 or [facility] by [facility] Goal: Patient should be free from fall Description: Interventions: 1. Lawson to environment 2. Hourly rounds addressing the [...] non-skid footwear 11. Teach patient and patient client relations representative to maintain environment for safety [...] (cane, walker) within reach 19. Request patient client relations representative bring adaptive equipment/mobility aids from home or obtain and provide as needed 20. Consult pharmacy regarding effects of med's affecting mobility, cognition, and alternatives 21. Obtain physician order for PT if risk factors associated with mobility are present 22. Obtain physician order for OT as appropriate 23. Utilize diversional activities 24. Educate patient and patient client relations representative how to maintain a safe environment during visitation times (notify nurse prior to leaving bedside) 25. Consider appropriateness of medical or non-medical radiation therapist 26. Set up voiding schedule as appropriate (every 2 hours) Outcome: Progressing Note: Evaluation of progress towards goal: pt remains free from falls. Fall precautions in place and family at bedside DISCHARGE PLANNING NOTE Health Services Administrator spoke with RN KAY Graf and with kiln charger Mylena about current situation regarding appeal decision and DC plan to home with outpatient services. Health Services Administrator placed a call to the who was in the patient's room due to the questions she had re: the discharge plan. Health Services Administrator spoke with , Kari on 07/21/24 at 1325. Health Services Administrator reviewed Eduardo's DC Appeal Determination Notification with the who confirmed that she had received a voicemail from [facility] this morning. Health Services Administrator explained that Eduardo had agreed with the termination of hospital services after having reviewed the uploaded clinical documents from this hospitalization that typewriters functional tester had sent to them yesterday. expressed verbal understanding to of Eduardo's decision. Health Services Administrator explained that patient's financial liability would begin at Noon on 07/22/24 and offered our care navigation assistance with obtaining transportation to home. had questions about why referrals were not made to detention facilities that family had now chosen, [facility] and [facility] Health Services Administrator explained to the that the patient did not meet the clinical criteria this time for a detention/rehab facility level of care and reminded her that a discussion about this took place this past week/yesterday with the treatment team. explained that she never agreed to take her home and her and her family now want SNF placement. Health Services Administrator continued to explain to the process of [...] prior to bringing him to the hospital. Health Services Administrator offered supportive listening to the and also offered for her to connect with patient's PCP, Dr. Lopez after she gets her home for resources. Health Services Administrator also discussed the outpatient TBI clinic appointment that was being discussed yesterday and that information would be included on patient's after visit summary. Health Services Administrator explained that if was not going to make arrangements to take patient home by maylin on 07/22, that patient's financial responsibility of $2640.00 per day would begin. expressed verbal understanding to typewriters functional tester. Health Services Administrator emailed financial responsibility form with instruction to kiln chargerCm (and cce'd today's RN Lesia Felton for awareness) for bedside delivery today. is aware of pending paper copy delivery of this form. - NELLI GLEZ [facility]AT MODEL CARE NAVIGATION 07/21/24 2:11 PM DISCHARGE PLANNING NOTE We have received DC Appeal Determination Notification from Daryl and Daryl has agreed with the termination of services. Beneficiary liability begins 07.22.2024 by Maylin. Beneficiary and/or beneficiary client relations representative were to be notified of determination via phone call. [facility] 1032 and letter rec'd [phone] were received by typewriters functional tester via fax. Health Services Administrator uploaded documents to document list. Documentation updated. Health Services Administrator received forwarded voice mail 07/21/24 at 1032 from Eduardo Duran's Immediate Advocacy Department , who had left message on Care Navigation Department voice mail at 1617 on 07/20/24, stating he was representing patient's family who had called [facility] asking 1) why denial reason wasn't given re: transfer to another care facility and 2) if the preferred facility by family was able to accept. Reference Case # given from Nica [id number]. Health Services Administrator attempted to call Nica back on 07/21/24 at 1214 and typewriters functional tester rec'd auto message from [facility] which stated only live phone calls with [facility] are Tuesday thru Tuesday. Health Services Administrator left voicemail citing reference case # [id number]. Health Services Administrator stated reason for return phone call and requested call back from Nica. - NELLI GLEZ [facility] NAVIGATION 07/21/24 12:37 PM Problem: Safety [...] at the bedside 7. Instruct patient/ patient client relations representative about use of safety devices 8. Include patient/ patient client relations representative in decisions related to safety Outcome: Progressing Note: Evaluation of progress towards goal: Pain will be adequately controlled to allow for rest and adl's Problem: Knowledge Deficit Goal: Patient/patient client relations representative demonstrates understanding of disease process, [...] Moderate - High Risk Fall Score Description: [place] Fall Score of =/> 25 or indicated by [facility] Assessment Goal: Patient should be free from fall Description: Interventions: 1. Lawson to environment 2. Hourly rounds addressing the [...] non-skid footwear 11. Teach patient and patient client relations representative to maintain environment for safety [...] (cane, walker) within reach 19. Request patient client relations representative bring adaptive equipment/mobility aids from home or obtain and provide as needed 20. Consult pharmacy regarding effects of med's affecting mobility, cognition, and alternatives 21. Obtain physician order for PT if risk factors associated with mobility are present 22. Obtain physician order for OT as appropriate 23. Utilize diversional activities 24. Educate patient and patient client relations representative how to maintain a safe environment during visitation times (notify nurse prior to leaving bedside) 25. Consider appropriateness of medical or non-medical radiation therapist 26. Set up voiding schedule as appropriate [...] at the bedside 7. Instruct patient/ patient client relations representative about use of safety devices 8. Include patient/ patient client relations representative in decisions related to safety Outcome: Progressing Note: Evaluation of progress towards goal: pt remains free from injury Problem: Knowledge Deficit Goal: Patient/patient client relations representative demonstrates understanding of disease process, [...] Score of =/> 25 or indicated by [facility] Assessment Goal: Patient should be free from fall Description: Interventions: 1. Lawson to environment 2. Hourly rounds addressing the [...] non-skid footwear 11. Teach patient and patient client relations representative to maintain environment for safety [...] (cane, walker) within reach 19. Request patient client relations representative bring adaptive equipment/mobility aids from home or obtain and provide as needed 20. Consult pharmacy regarding effects of med's affecting mobility, cognition, and alternatives 21. Obtain physician order for PT if risk factors associated with mobility are present 22. Obtain physician order for OT as appropriate 23. Utilize diversional activities 24. Educate patient and patient client relations representative how to maintain a safe environment during visitation times (notify nurse prior to leaving bedside) 25. Consider appropriateness of medical or non-medical radiation therapist 26. Set up voiding schedule as appropriate (every 2 hours) Outcome: Progressing Note: Evaluation of progress towards goal: fall precautions in place and pt remains free from falls DISCHARGE PLANNING NOTE Patient's family has appealed his discharge & we have received notification from [facility] that a DC appeal has been called in. The chart, DND form, & IMM have been successfully uploaded by typewriters functional tester to the O/[facility] and successfully received by [facility]. [facility] will notify the of the patient of the appeal determination. Health Services Administrator phone called patient's & read the DND notice to her. Paper copy of the DND notice to be delivered to the patient's bedside. Health Services Administrator informed to anticipate phone call from [facility] re: determination of DC Appeal & encouraged wifeto answer the phone when [facility] calls. expressed verbal understanding of DND and the DC appeal process. - NELLI GLEZ HAT MODEL CARE NAVIGATION 07/20/24 5:13 PM Problem: Safety [...] at the bedside 7. Instruct patient/ patient client relations representative about use of safety devices 8. Include patient/ patient client relations representative in decisions related to safety Outcome: Progressing Note: Evaluation of progress towards goal: Patient remains injury free at this time. Problem: Knowledge Deficit Goal: Patient/patient client relations representative demonstrates understanding of disease process, [...] Score of =/> 25 or indicated by [facility] Assessment Goal: Patient should be free from fall Description: Interventions: 1. Lawson to environment 2. Hourly rounds addressing the [...] non-skid footwear 11. Teach patient and patient client relations representative to maintain environment for safety [...] (cane, walker) within reach 19. Request patient client relations representative bring adaptive equipment/mobility aids from home or obtain and provide as needed 20. Consult pharmacy regarding effects of med's affecting mobility, cognition, and alternatives 21. Obtain physician order for PT if risk factors associated with mobility are present 22. Obtain physician order for OT as appropriate 23. Utilize diversional activities 24. Educate patient and patient client relations representative how to maintain a safe environment during visitation times (notify nurse prior to leaving bedside) 25. Consider appropriateness of medical or non-medical radiation therapist 26. Set up voiding schedule as appropriate (every 2 hours) Outcome: Progressing Note: Evaluation of progress towards goal: Patient remains free from falls at this time. DISCHARGE PLANNING NOTE 07/30 at 12:40 Hospital follow up with Fidelina Fisher CNP [facility] [address] [place] [address] Confirmed with Taylor at [facility] she did receive the updated notes (neuro, PMR, PT/OT) that were faxed and uploaded to [facility]. She is almost finishing writing it up for physician review and will call us with their determination by 10am. 9:31 am Received call from Taylor at [facility] IPR-she reviewed updated notes with nuclear medical technologist and they remain unable to accept after our 3rd request for review. She said he is doing too well functionally, does not need OT/PT services. She said after discussion with nuclear medical technologist their facility would be of no benefit to the patient. This information was communicated to interdisciplinary team via epic chat DISCHARGE PLANNING NOTE Sent face sheet to [facility] for hospital transfer via secure fax to # [phone] DISCHARGE PLANNING NOTE Discharge plan- awaiting responses from [facility] if they can accept. Tasked [facility] to send neuro note from yesterday to them again. Tasked CN to fax his face sheet to [facility] per physician request since she is calling them about a hospital to hospital transfer per families request. Leadership team aware. - NANCY PARRISH 07/20/24 8:19 AM Discussed patient and d/c planning with leadership team. Everyone in agreement with d/c today since per physician [facility] can not accept as a hospital transfer and [facility] has denied as well. Physician and this typewriters functional tester spoke with patient, and sister that is present re: d/c today and that patient will be going home with outpatient ST and an appointment has been made for a TBI clinic for follow up. Provided IMM to and explained. Leadership aware. - NANCY PARRISH 07/20/24 11:29 AM DISCHARGE PLANNING NOTE Neuro Note sent to [facility] (P# [phone] ; F# [phone]) in [facility] and via [employer]. Problem: Safety Goal: Patient will be injury free during hospitalization Description: INTERVENTIONS: 1. Assess patient's risk for falls and implement fall prevention plan of care per policy 2. Provide and maintain a safe environment 3. Proper use of double Identifiers 4. Medication administration using the 5 rights 5. Hand hygiene 6. Specimens are labeled at the bedside 7. Instruct patient/ patient client relations representative about use of safety devices 8. Include patient/ patient client relations representative in decisions related to safety Outcome: Progressing Note: Evaluation of progress towards goal: Pt remains free from injury and significant other at bedside Problem: Knowledge Deficit Goal: Patient/patient client relations representative demonstrates understanding of disease process, [...] Score of =/> 25 or indicated by [facility] Assessment Goal: Patient should be free from fall Description: Interventions: 1. Lawson to environment 2. Hourly rounds addressing the [...] non-skid footwear 11. Teach patient and patient client relations representative to maintain environment for safety [...] (cane, walker) within reach 19. Request patient client relations representative bring adaptive equipment/mobility aids from home or obtain and provide as needed 20. Consult pharmacy regarding effects of med's affecting mobility, cognition, and alternatives 21. Obtain physician order for PT if risk factors associated with mobility are present 22. Obtain physician order for OT as appropriate 23. Utilize diversional activities 24. Educate patient and patient client relations representative how to maintain a safe environment during visitation times (notify nurse prior to leaving bedside) 25. Consider appropriateness of medical or non-medical radiation therapist 26. Set up voiding schedule as appropriate (every 2 hours) Outcome: Progressing Note: Evaluation of progress towards goal: pt remains free from falls and fall precautions are in place DISCHARGE PLANNING NOTE Updates to [facility] (P# [phone] ; F# [phone]) Occupational Therapy Treatment Discharge Recommendations OT Recommendations [...] therapy per MARCI Rothman Equipment: gait belt Telemetry/[place]: No Oxygen Used: room air Other: fall [...] up w/mother's name; educated sister on playing [employer] songs from pt's younger years, to encourage [...] Date/Time User Outcome 07/19/24 1445 Yoanna Guille-Mahoney, BURR BENCH HAND/L Progressing 07/17/24 1439 Yoanna Guille-Mahoney, KWADWO/L Progressing [...] Date/Time User Outcome 07/19/24 1445 Yoanna Guille-Mahoney, BURR BENCH HAND/L Progressing 07/17/24 1439 Yoanna Guille-Mahoney, BURR BENCH HAND/L Progressing Problem: Dressing LB Dates: Start: 07/13/24 [...] Date/Time User Outcome 07/19/24 1445 Yoanna Han-Mahoney, BURR BENCH HAND/L Progressing 07/17/24 1439 Yoanna Han-Mahoney, KWADWO/L Progressing Problem: Grooming Dates: Start: 07/13/24 Disciplines: OT Goal: Patient will perform grooming Independently Dates: Start: 07/13/24 Expected End: 08/13/24 Description: Goal Description: Disciplines: OT Outcomes Date/Time User Outcome 07/17/24 1439 Yoanna Han-Mahoney, BURR BENCH HAND/L Progressing Problem: Standing Balance Dates: Start: 07/13/24 [...] Date/Time User Outcome 07/17/24 1439 Yoanna Han-Mahoney, BURR BENCH HAND/L Progressing Problem: Transfers Dates: Start: 07/13/24 Disciplines: OT Goal: Patient will perform transfers Independently Dates: Start: 07/13/24 Expected End: 08/13/24 Description: Goal Description: Disciplines: OT Outcomes Date/Time User Outcome 07/19/24 1445 EN Hogan Progressing 07/17/24 1439 EN Hogan Progressing Occupational Therapy Care Plan (Resolved) There are no resolved problems. Principal Problem: Dementia with behavioral disturbance ([facility]) Active Problems: Altered mental status Status post colostomy, follow-up exam ([facility]) Cosigned by MAYNOR Dillon/Jerome at 07/19/2024 3:13 PM EST Associated attestation - Veronica Gomran OTR/Jerome - 07/19/2024 3:13 PM EST I [...] 6 Clicks: Basic Mobility Raw Score: 20 [facility] G Code Modifier: CJ Patient Response to Treatment: Slow progress, decreased activity tolerance Assessment Patient Assessment Patient Response to Treatment: Slow progress, decreased activity tolerance Visit RN Communication: Yes Medical Record Reviewed: Yes PT Type of Visit: Treatment Precautions Activity: ok for therapy per MARCI Rothman Equipment: gait belt Telemetry/[place]: Yes Oxygen Used: room air Other: fall [...] Goal: Patient will perform stairs/curb with Modified Lackey Dates: Start: 07/13/24 Expected End: 07/27/24 Description: [...] problems. Principal Problem: Dementia with behavioral disturbance ([facility]) Active Problems: Altered mental status Status post colostomy, follow-up exam ([facility]) Cosigned by Jose Gorman PT at 07/19/2024 [...] at the bedside 7. Instruct patient/ patient client relations representative about use of safety devices 8. Include patient/ patient client relations representative in decisions related to safety Outcome: Progressing Note: Evaluation of progress towards goal: Patient remains injury free at this time. Problem: Knowledge Deficit Goal: Patient/patient client relations representative demonstrates understanding of disease process, [...] Score of =/> 25 or indicated by [facility] Assessment Goal: Patient should be free from fall Description: Interventions: 1. Lawson to environment 2. Hourly rounds addressing the [...] non-skid footwear 11. Teach patient and patient client relations representative to maintain environment for safety [...] (cane, walker) within reach 19. Request patient client relations representative bring adaptive equipment/mobility aids from home or obtain and provide as needed 20. Consult pharmacy regarding effects of med's affecting mobility, cognition, and alternatives 21. Obtain physician order for PT if risk factors associated with mobility are present 22. Obtain physician order for OT as appropriate 23. Utilize diversional activities 24. Educate patient and patient client relations representative how to maintain a safe environment during visitation times (notify nurse prior to leaving bedside) 25. Consider appropriateness of medical or non-medical radiation therapist 26. Set up voiding schedule as appropriate (every 2 hours) Outcome: Progressing Note: Evaluation of progress towards goal: Patient remains free from falls. DISCHARGE PLANNING NOTE Updates to [facility] (P# ; F# ) Images from the original note were not included. DISCHARGE PLANNING NOTE Discussed patient today during rounds. Plan-TBI center VS IPR. This typewriters functional tester and floor Mgr spoke with patient's over the phone and his sister in his room re: d/c planning. Updated them that [facility] has denied. Offered [facility] if they can accept as [...] - NANCY PARRISH 07/19/24 10:42 AM This typewriters functional tester and trading floor operator and Dr. Shipley spoke with patient, and sister re: d/c planning. They are aware that [facility] is still reviewing referral. Asked if SNF referrals can be sent and they declined stating they would like the physician to see if she can get him transferred to [facility] as a physician to physician transfer. Updated Leadership. If neither of these hospitals can accept then patient to d/c home with since SNF has been declined. - NANCY PARRISH 07/19/24 12:14 PM This typewriters functional tester and floor mgr spoke with family to let them know [facility] has denied patient and that they recommend SNF for him. Tasked CN to send neuro note from today to [facility] to see if they can accept [...] at the bedside 7. Instruct patient/ patient client relations representative about use of safety devices 8. Include patient/ patient client relations representative in decisions related to safety Outcome: Progressing Note: Evaluation of progress towards goal: Problem: Knowledge Deficit Goal: Patient/patient client relations representative demonstrates understanding of disease process, [...] at the bedside 7. Instruct patient/ patient client relations representative about use of safety devices 8. Include patient/ patient client relations representative in decisions related to safety Outcome: Progressing Note: Evaluation of progress towards goal: Problem: Knowledge Deficit Goal: Patient/patient client relations representative demonstrates understanding of disease process, [...] at the bedside 7. Instruct patient/ patient client relations representative about use of safety devices 8. Include patient/ patient client relations representative in decisions related to safety Outcome: Progressing Note: Evaluation of progress towards goal: patient is injury free at this time. Problem: Knowledge Deficit Goal: Patient/patient client relations representative demonstrates understanding of disease process, [...] Score of =/> 25 or indicated by [facility] Assessment Goal: Patient should be free from fall Description: Interventions: 1. Lawson to environment 2. Hourly rounds addressing the [...] non-skid footwear 11. Teach patient and patient client relations representative to maintain environment for safety [...] (cane, walker) within reach 19. Request patient client relations representative bring adaptive equipment/mobility aids from home or obtain and provide as needed 20. Consult pharmacy regarding effects of med's affecting mobility, cognition, and alternatives 21. Obtain physician order for PT if risk factors associated with mobility are present 22. Obtain physician order for OT as appropriate 23. Utilize diversional activities 24. Educate patient and patient client relations representative how to maintain a safe environment during visitation times (notify nurse prior to leaving bedside) 25. Consider appropriateness of medical or non-medical radiation therapist 26. Set up voiding schedule as appropriate (every 2 hours) Outcome: Progressing Note: Evaluation of progress towards goal: Patient is free from falls at this time. DISCHARGE PLANNING NOTE Referral sent to [facility] (P# [phone] ; F# [phone]) Images from the original note were not included. DISCHARGE PLANNING NOTE Discussed patient today during rounds. Patient's requested updates be sent to [facility]. Tasked [facility] to send. Leadership team aware as well as floor nurse. Barriers- acceptance, auth. Services Requested: Services Requested Patient expects to be discharged to:: home vs snf Patient Goals: Goals: Goals <enter goal here> (pt-stated) Evaluation of progress towards goal: TBD-pending PT/OT eval - NANCY PARRISH 07/18/24 10:30 AM Still awaiting response from [facility] if they can accept patient. Leadership [...] at the bedside 7. Instruct patient/ patient client relations representative about use of safety devices 8. Include patient/ patient client relations representative in decisions related to safety [...] be free from fall Description: Interventions: 1. Lawson to environment 2. Hourly rounds addressing the [...] non-skid footwear 11. Teach patient and patient client relations representative to maintain environment for safety [...] (cane, walker) within reach 19. Request patient client relations representative bring adaptive equipment/mobility aids from home or obtain and provide as needed 20. Consult pharmacy regarding effects of med's affecting mobility, cognition, and alternatives 21. Obtain physician order for PT if risk factors associated with mobility are present 22. Obtain physician order for OT as appropriate 23. Utilize diversional activities 24. Educate patient and patient client relations representative how to maintain a safe environment during visitation times (notify nurse prior to leaving bedside) 25. Consider appropriateness of medical or non-medical radiation therapist 26. Set up voiding schedule as appropriate (every 2 hours) Outcome: Progressing Note: Evaluation of progress towards goal: Patient will remain free from falls. DISCHARGE PLANNING NOTE Referral sent to. [facility] (P# [phone] ; F# [phone], ) Physical Therapy Treatment Discharge Recommendations PT [...] Rothman Equipment: gait belt and chair alarm Telemetry/[place]: Yes Oxygen Used: room air Other: fall [...] Goal: Patient will perform stairs/curb with Modified Lackey Dates: Start: 07/13/24 Expected End: 07/27/24 Description: [...] problems. Principal Problem: Dementia with behavioral disturbance ([facility]) Active Problems: Altered mental status Status post colostomy, follow-up exam ([facility]) Cosigned by Briana Nuno PT at 07/18/2024 [...] up) Scoring Daily Activity Raw Score: 19 [facility] G Code Modifier: CK Therapy Plan Need [...] Rothman Equipment: gait belt and chair alarm Telemetry/[place]: Yes Oxygen Used: room air Other: fall [...] Date/Time User Outcome 07/17/24 1439 Yoanna Han-Mahoney, BURR BENCH HAND/L Progressing Problem: Grooming Dates: Start: 07/13/24 Disciplines: [...] Date/Time User Outcome 07/17/24 1439 Yoanna Han-Mahoney, BURR BENCH HAND/L Progressing Problem: Toileting Dates: Start: 07/13/24 Disciplines: OT Goal: Patient will perform toileting Independently Dates: Start: 07/13/24 Expected End: 08/13/24 Description: Goal Description: Disciplines: OT Outcomes Date/Time User Outcome 07/17/24 1439 Yoanna Han-Mahoney, BURR BENCH HAND/L Progressing Problem: Transfers Dates: Start: 07/13/24 Disciplines: OT Goal: Patient will perform transfers Independently Dates: Start: 07/13/24 Expected End: 08/13/24 Description: Goal Description: Disciplines: OT Outcomes Date/Time User Outcome 07/17/24 1439 Yoanna Han-Mahoney, KWADWO/L Progressing Occupational Therapy Care Plan (Resolved) There are no resolved problems. Principal Problem: Dementia with behavioral disturbance ([facility]) Active Problems: Altered mental status Status post colostomy, follow-up exam ([facility]) Cosigned by MAYNOR Navarro/Jerome at 07/17/2024 3:03 [...] at the bedside 7. Instruct patient/ patient client relations representative about use of safety devices 8. Include patient/ patient client relations representative in decisions related to safety Outcome: Progressing Note: Evaluation of progress towards goal: Patient is injury free at this time. Problem: Knowledge Deficit Goal: Patient/patient client relations representative demonstrates understanding of disease process, [...] Score of =/> 25 or indicated by [facility] Assessment Goal: Patient should be free from fall Description: Interventions: 1. Lawson to environment 2. Hourly rounds addressing the [...] non-skid footwear 11. Teach patient and patient client relations representative to maintain environment for safety [...] (cane, walker) within reach 19. Request patient client relations representative bring adaptive equipment/mobility aids from home or obtain and provide as needed 20. Consult pharmacy regarding effects of med's affecting mobility, cognition, and alternatives 21. Obtain physician order for PT if risk factors associated with mobility are present 22. Obtain physician order for OT as appropriate 23. Utilize diversional activities 24. Educate patient and patient client relations representative how to maintain a safe environment during visitation times (notify nurse prior to leaving bedside) 25. Consider appropriateness of medical or non-medical radiation therapist 26. Set up voiding schedule as appropriate (every 2 hours) Outcome: Progressing Note: Evaluation of progress towards goal: Patient is free from falls at this time. DISCHARGE PLANNING NOTE fax referral to [facility] to [phone] shannan Alyssa Images from the original note were not included. DISCHARGE PLANNING NOTE Discussed patient today during rounds. Plan- IPR/TBI center. Barriers- acceptance, auth. This typewriters functional tester called both reviewing facilities and left for admissions to see if they can accept. Asked them to call this typewriters functional tester back. Floor nurse and leadership team aware. Services Requested: Services Requested Patient expects to be discharged to:: home vs snf Patient Goals: Goals: Goals <enter goal here> (pt-stated) Evaluation of progress towards goal: TBD-pending PT/OT lynnette - NANCY PARRISH 07/17/24 9:42 AM At this time we do not have an accepting TBI/IPR facility. This typewriters functional tester and trading floor operator attempted to speak with patient's but she is not in the room. Also tried to call her but it went right to VM and her VM box is full. - NANCY PARRISH 07/17/24 1:43 PM [facility] called this typewriters functional tester since they don't respond in [facility] and they can not accept patient. This typewriters functional tester and trading floor operator spoke with patient's and patient's sister that [...] at the bedside 7. Instruct patient/ patient client relations representative about use of safety devices 8. Include patient/ patient client relations representative in decisions related to safety Outcome: Progressing Note: Evaluation of progress towards goal: Patient remains injury and fall free. Safety precautions in place: call light within reach, bed in lowest position, personal belongings within reach, oriented to environment, and non-slip footwear on. Problem: Knowledge Deficit Goal: Patient/patient client relations representative demonstrates understanding of disease process, [...] be free from fall Description: Interventions: 1. Lawson to environment 2. Hourly rounds addressing the [...] non-skid footwear 11. Teach patient and patient client relations representative to maintain environment for safety [...] (cane, walker) within reach 19. Request patient client relations representative bring adaptive equipment/mobility aids from home or obtain and provide as needed 20. Consult pharmacy regarding effects of med's affecting mobility, cognition, and alternatives 21. Obtain physician order for PT if risk factors associated with mobility are present 22. Obtain physician order for OT as appropriate 23. Utilize diversional activities 24. Educate patient and patient client relations representative how to maintain a safe environment during visitation times (notify nurse prior to leaving bedside) 25. Consider appropriateness of medical or non-medical radiation therapist 26. Set up voiding schedule as appropriate [...] Plan Speech Therapy Care Plan (Active) Template: [facility] Speech Problem: Auditory Comprehension Dates: Start: 07/12/24 Disciplines: MICROBIOLOGY INSTRUCTOR Goal: LTG: Patient will comprehend communication related to basic medical and social needs and utilize compensatory strategies to maintain safety in a functional living environment Dates: Start: 07/12/24 Expected End: 08/12/24 Disciplines: MICROBIOLOGY INSTRUCTOR Goal: STG: Patient will answer complex yes/no questions with 90% accuracy with minimal cueing Dates: Start: 07/12/24 Expected End: 08/12/24 Disciplines: MICROBIOLOGY INSTRUCTOR Outcomes Date/Time User Outcome 07/16/24 1520 MAGALI Castellanos Progressing Goal: STG: Patient will complete 1-3 step commands with 90% accuracy with minimal cueing Dates: Start: 07/12/24 Expected End: 08/12/24 Disciplines: MICROBIOLOGY INSTRUCTOR Outcomes Date/Time User Outcome 07/16/24 Willie0 MAGALI Castellanos Progressing Goal: STG: Patient will complete simple, phrase level auditory comprehension tasks with 90% accuracy with minimal cueing Dates: Start: 07/12/24 Expected End: 08/12/24 Disciplines: MICROBIOLOGY INSTRUCTOR Problem: Cognitive Linguistic Dates: Start: 07/12/24 Disciplines: MICROBIOLOGY INSTRUCTOR Goal: LTG: Patient will display functional cognitive-linguistic skills to demonstrate appropriate communication and safety within daily activities in a functional living environment Dates: Start: 07/12/24 Expected End: 08/12/24 Disciplines: MICROBIOLOGY INSTRUCTOR Goal: STG: Patient will demonstrate sustained attention by maintaining focus during a task for 10 minutes with minimal assistance Dates: Start: 07/12/24 Expected End: 08/12/24 Disciplines: MICROBIOLOGY INSTRUCTOR Outcomes Date/Time User Outcome 07/16/24 1520 Conchita Devi, [facility]-MICROBIOLOGY INSTRUCTOR Progressing Goal: STG: Patient will be appropriately oriented to person, place, time and situation with 90% accuracy with minimal cueing Dates: Start: 07/12/24 Expected End: 08/12/24 Disciplines: MICROBIOLOGY INSTRUCTOR Goal: STG: Patient will recall information discussed during therapy session via retelling/answering questions with 90% accuracy with minimal cueing Dates: Start: 07/12/24 Expected End: 08/12/24 Disciplines: MICROBIOLOGY INSTRUCTOR Problem: High Level Language Dates: Start: 07/12/24 Disciplines: MICROBIOLOGY INSTRUCTOR Goal: LTG: Patient will demonstrate use of self-awareness, goal setting, planning, initiation, self-monitoring and problem solving during daily activities to improve safety and awareness in a functional living environment Dates: Start: 07/12/24 Expected End: 08/12/24 Disciplines: MICROBIOLOGY INSTRUCTOR Goal: STG: Patient will sequence 4-6 steps to a task (verbal, written, pictures) with 90% accuracy with minimal cueing Dates: Start: 07/12/24 Expected End: 08/12/24 Disciplines: MICROBIOLOGY INSTRUCTOR Goal: STG: Patient will provide 3 appropriate solutions to problems of daily living with 90% accuracy with minimal cueing Dates: Start: 07/12/24 Expected End: 08/12/24 Disciplines: MICROBIOLOGY INSTRUCTOR Goal: STG: Patient will demonstrate functional problem solving and safety awareness with 90% accuracy in daily living tasks in order to increase safe interactions with environment and decrease assistance from caregivers Dates: Start: 07/12/24 Expected End: 08/12/24 Disciplines: MICROBIOLOGY INSTRUCTOR Problem: Verbal Expression Dates: Start: 07/12/24 Disciplines: MICROBIOLOGY INSTRUCTOR Goal: LTG: Patient will utilize compensatory strategies to communicate wants and needs effectively to different conversational partners, maintain safety and participate socially in a functional living environment Dates: Start: 07/12/24 Expected End: 08/12/24 Disciplines: MICROBIOLOGY INSTRUCTOR Goal: STG: Patient will respond to simple/complex open ended questions during activities of daily living with 90% accuracy with minimal cueing Dates: Start: 07/12/24 Expected End: 08/12/24 Disciplines: MICROBIOLOGY INSTRUCTOR Goal: STG: Patient will maintain topic of conversation to decrease tangential speech with 90% accuracy with minimal cueing Dates: Start: 07/12/24 Expected End: 08/12/24 Disciplines: MICROBIOLOGY INSTRUCTOR Outcomes Date/Time User Outcome 07/16/24 1520 MAGALI Castellanos Progressing Speech Therapy Care Plan (Resolved) There are no resolved problems. Principal Problem: Dementia with behavioral disturbance ([facility]) Active Problems: Altered mental status Status post colostomy, follow-up exam ([facility]) DISCHARGE PLANNING NOTE Resent referral [facility] to [facility] P#[phone]; F#[phone] sent via secure fax to [phone] Problem: Safety Goal: Patient will be injury free during hospitalization Description: INTERVENTIONS: 1. Assess patient's risk for falls and implement fall prevention plan of care per policy 2. Provide and maintain a safe environment 3. Proper use of double Identifiers 4. Medication administration using the 5 rights 5. Hand hygiene 6. Specimens are labeled at the bedside 7. Instruct patient/ patient client relations representative about use of safety devices 8. Include patient/ patient client relations representative in decisions related to safety Outcome: Progressing Note: Evaluation of progress towards goal: pain will be adequally controlled to allow for rest and adl's Problem: Knowledge Deficit Goal: Patient/patient client relations representative demonstrates understanding of disease process, [...] Score of =/> 25 or indicated by [facility] Assessment Goal: Patient should be free from fall Description: Interventions: 1. Lawson to environment 2. Hourly rounds addressing the [...] non-skid footwear 11. Teach patient and patient client relations representative to maintain environment for safety [...] (cane, walker) within reach 19. Request patient client relations representative bring adaptive equipment/mobility aids from home or obtain and provide as needed 20. Consult pharmacy regarding effects of med's affecting mobility, cognition, and alternatives 21. Obtain physician order for PT if risk factors associated with mobility are present 22. Obtain physician order for OT as appropriate 23. Utilize diversional activities 24. Educate patient and patient client relations representative how to maintain a safe environment during visitation times (notify nurse prior to leaving bedside) 25. Consider appropriateness of medical or non-medical radiation therapist 26. Set up voiding schedule as appropriate (every 2 hours) Outcome: Progressing Note: Evaluation of progress towards goal: fall bundle DISCHARGE PLANNING NOTE Clinical updates sent to Referrals sent to [facility] (P# [phone] ; F# [phone]) and to [facility] and to [facility] DISCHARGE PLANNING NOTE [facility] Via secure fax to [phone]. This is theor fax per phone call to facility. P#[phone]. Provider not in [employer]. DISCHARGE PLANNING NOTE Discharge plan- TBD waiting to hear from TBI/IPR who can accept out of the reviewing facilities. [facility] in [facility] called this typewriters functional tester and will call his to discuss. If they are able to accept she would owe private pay for room and board and money is due up front. Updated leadership team and floor nurse. - NANCY PARRISH 07/16/24 8:50 AM Discussed patient today during rounds. Called [facility] and left a VM for admissions to see if they can accept. Awaiting responses from the other facilities to respond. Barriers- acceptance, auth. - NANCY PARRISH 07/16/24 10:58 AM Called admissions at [facility] and [facility] and left VM asking them if they can accept and to call this typewriters functional tester back. Left callback #. - NANCY PARRISH 07/16/24 11:05 AM Still awaiting responses from all reviewing IPR this time. Leadership aware. Called [facility] and spoke with admissions and they will review. Also called [facility] and left another VM. Both in [place] are still reviewing at this time. - [...] at the bedside 7. Instruct patient/ patient client relations representative about use of safety devices 8. Include patient/ patient client relations representative in decisions related to safety Outcome: Progressing Note: Evaluation of progress towards goal: Patient remains injury and fall free. Safety precautions in place: call light within reach, bed in lowest position, personal belongings within reach, oriented to environment, and non-slip footwear on. Problem: Knowledge Deficit Goal: Patient/patient client relations representative demonstrates understanding of disease process, [...] Collaborate with ancillary departments 14. Include patient/patient client relations representative in decisions related to anxiety Outcome: Progressing Note: Evaluation of progress towards goal: Patient's anxiety appears to be at manageable level. Problem: Moderate - High Risk Fall Score Description: Gallegos Fall Score of =/> 25 or indicated by [facility] Assessment Goal: Patient should be free from fall Description: Interventions: 1. Lawson to environment 2. Hourly rounds addressing the [...] non-skid footwear 11. Teach patient and patient client relations representative to maintain environment for safety [...] (cane, walker) within reach 19. Request patient client relations representative bring adaptive equipment/mobility aids from home or obtain and provide as needed 20. Consult pharmacy regarding effects of med's affecting mobility, cognition, and alternatives 21. Obtain physician order for PT if risk factors associated with mobility are present 22. Obtain physician order for OT as appropriate 23. Utilize diversional activities 24. Educate patient and patient client relations representative how to maintain a safe environment during visitation times (notify nurse prior to leaving bedside) 25. Consider appropriateness of medical or non-medical radiation therapist 26. Set up voiding schedule as appropriate [...] at the bedside 7. Instruct patient/ patient client relations representative about use of safety devices 8. Include patient/ patient client relations representative in decisions related to safety [...] Score of =/> 25 or indicated by [facility] Assessment Goal: Patient should be free from fall Description: Interventions: 1. Lawson to environment 2. Hourly rounds addressing the [...] non-skid footwear 11. Teach patient and patient client relations representative to maintain environment for safety [...] (cane, walker) within reach 19. Request patient client relations representative bring adaptive equipment/mobility aids from home or obtain and provide as needed 20. Consult pharmacy regarding effects of med's affecting mobility, cognition, and alternatives 21. Obtain physician order for PT if risk factors associated with mobility are present 22. Obtain physician order for OT as appropriate 23. Utilize diversional activities 24. Educate patient and patient client relations representative how to maintain a safe environment during visitation times (notify nurse prior to leaving bedside) 25. Consider appropriateness of medical or non-medical radiation therapist 26. Set up voiding schedule as appropriate [...] at the bedside 7. Instruct patient/ patient client relations representative about use of safety devices 8. Include patient/ patient client relations representative in decisions related to safety Outcome: Progressing Note: Evaluation of progress towards goal: Proper identifiers used with patient care and medication administration. Remains free of injury during shift Problem: Knowledge Deficit Goal: Patient/patient client relations representative demonstrates understanding of disease process, [...] Collaborate with ancillary departments 14. Include patient/patient client relations representative in decisions related to anxiety Outcome: Progressing Note: Evaluation of progress towards goal: Patient verbalizes a tolerable anxiety level and remains free of signs and symptoms of anxiety. Will continue to explain treatment plan and monitor for changes in anxiety levels. Problem: Moderate - High Risk Fall Score Description: Gallegos Fall Score of =/> 25 or indicated by [facility] Assessment Goal: Patient should be free from fall Description: Interventions: 1. Lawson to environment 2. Hourly rounds addressing the [...] non-skid footwear 11. Teach patient and patient client relations representative to maintain environment for safety [...] (cane, walker) within reach 19. Request patient client relations representative bring adaptive equipment/mobility aids from home or obtain and provide as needed 20. Consult pharmacy regarding effects of med's affecting mobility, cognition, and alternatives 21. Obtain physician order for PT if risk factors associated with mobility are present 22. Obtain physician order for OT as appropriate 23. Utilize diversional activities 24. Educate patient and patient client relations representative how to maintain a safe environment during visitation times (notify nurse prior to leaving bedside) 25. Consider appropriateness of medical or non-medical radiation therapist 26. Set up voiding schedule as appropriate [...] at the bedside 7. Instruct patient/ patient client relations representative about use of safety devices 8. Include patient/ patient client relations representative in decisions related to safety Outcome: Progressing Note: Evaluation of progress towards goal: pain will be controlled to allow for rest and adl's Problem: Knowledge Deficit Goal: Patient/patient client relations representative demonstrates understanding of disease process, [...] Collaborate with ancillary departments 14. Include patient/patient client relations representative in decisions related to anxiety Outcome: Progressing Note: Evaluation of progress towards goal: listen and reassuring Problem: Moderate - High Risk Fall Score Description: Gallegos Fall Score of =/> 25 or indicated by [facility] Assessment Goal: Patient should be free from fall Description: Interventions: 1. Lawson to environment 2. Hourly rounds addressing the [...] non-skid footwear 11. Teach patient and patient client relations representative to maintain environment for safety [...] (cane, walker) within reach 19. Request patient client relations representative bring adaptive equipment/mobility aids from home or obtain and provide as needed 20. Consult pharmacy regarding effects of med's affecting mobility, cognition, and alternatives 21. Obtain physician order for PT if risk factors associated with mobility are present 22. Obtain physician order for OT as appropriate 23. Utilize diversional activities 24. Educate patient and patient client relations representative how to maintain a safe environment during visitation times (notify nurse prior to leaving bedside) 25. Consider appropriateness of medical or non-medical radiation therapist 26. Set up voiding schedule as appropriate (every 2 hours) Outcome: Progressing Note: Evaluation of progress towards goal: fallbundle DISCHARGE PLANNING NOTE Referrals sent to [facility] (P# [phone] ; F# [phone]) and to [facility] and to [facility] and to [facility] in [facility] p#: [phone] f#: [phone] DISCHARGE PLANNING NOTE Follow-up Discharge Planning Progress Note Per RN during discharge transition rounds, barriers to discharge are: Accepting acute inpatient rehabilitation center. Discharge Plan: Health Services Administrator followed up with patient, spouse and patient sister at bedside. Updated, [facility], not accepting, not in network with patient [...] Discussed lower levels of care such as Residential Facility and Home care. Patient spouse and sister verbalized understanding. Choices received. [facility] tasked to send referrals. Attempted to [...] at the bedside 7. Instruct patient/ patient client relations representative about use of safety devices 8. Include patient/ patient client relations representative in decisions related to safety Outcome: Progressing Note: Evaluation of progress towards goal: Proper identifiers used with patient care and medication administration. Remains free of injury during shift Problem: Knowledge Deficit Goal: Patient/patient client relations representative demonstrates understanding of disease process, [...] Collaborate with ancillary departments 14. Include patient/patient client relations representative in decisions related to anxiety [...] be free from fall Description: Interventions: 1. Lawson to environment 2. Hourly rounds addressing the [...] non-skid footwear 11. Teach patient and patient client relations representative to maintain environment for safety [...] (cane, walker) within reach 19. Request patient client relations representative bring adaptive equipment/mobility aids from home or obtain and provide as needed 20. Consult pharmacy regarding effects of med's affecting mobility, cognition, and alternatives 21. Obtain physician order for PT if risk factors associated with mobility are present 22. Obtain physician order for OT as appropriate 23. Utilize diversional activities 24. Educate patient and patient client relations representative how to maintain a safe environment during visitation times (notify nurse prior to leaving bedside) 25. Consider appropriateness of medical or non-medical radiation therapist 26. Set up voiding schedule as appropriate (every 2 hours) Outcome: Progressing Note: Evaluation of progress towards goal: Call light within reach. Remains free of fall or injury. Environment free of clutter. Problem: Safety - Medical Restraint Goal: Remains free of injury from restraints (Restraint for Interference with Personal Vehicle Advisor) Description: INTERVENTIONS: 1. Determine that other, less [...] Free from restraint(s) (Restraint for Interference with Personal Vehicle Advisor) Description: INTERVENTIONS: 1. ONCE/SHIFT or MINIMUM Q12H: [...] the safety outcome Outcome: Completed Per Lesia VILLANUEVA patient's and sister were very upset that [facility] did not accept patient. They declined to offer any other choices for facilities to her at this time. Lesia encouraged them to allow her to make referrals to some TBI facilities at [facility] and in [place] but at this time they are angry that [facility] did not accept patient. Health Services Administrator will request SW follow up with them in the morning to obtain choices to continue developing a transition of care plan. DISCHARGE PLANNING NOTE Referral sent to [facility] P#[phone]; F#[phone]); [facility] P# [phone] [calling report];/[facility] (P# [calling report]; F# ) DISCHARGE PLANNING NOTE Per RN during discharge transition rounds, barriers to discharge are: Telesitter, PMR re-eval, Seroquel dose adjustment. Discharge Plan: [facility] for TBI rehab. PT/OT recommended [facility]. CN met with and sister Ewa. wants a referral sent [facility]. CN discussed discharge and making referrals to other TBI/ IPR rehabs in the state, and sister stated they are putting all their zak in [facility] being able to accept the patient. Education Sales Consultant will continue to follow for any discharge needs. - Lesia Caba RN 07/13/24 12:18 PM Addendum: [facility] [employer] insurance. gave CN two more choices : [facility] and [facility] rehab. [facility] tasked to send referrals. and sister are calling insurance to ask about a one time contract to [facility]. Ethel , [facility] rep, stopped in to talk to and sister. - Lesia Caba RN 07/13/24 2:10 PM Addendum: Patient's and sister asked CN to listen and talk to insurance agency sales manager regarding a one time approval for the [facility]: [facility]. Conservation Of [employer] Commissioner Xiomy with [employer] stated attending or managing physician needs to document patient's health status and progression, information on why the patient needs to go this specific facility for rehab, include diagnosis codes and services codes. Fax: Prior Auth Request to [phone] attn: Prior Auth Request at [employer]. CN sent pic chat to Dr. Nichol [...] PM DISCHARGE PLANNING NOTE Referral to [facility] (P# ; F# ) Occupational Therapy [...] reflux disease) High cholesterol Perforated sigmoid colon ([facility]) Past Surgical History: Procedure Laterality Date ARM EXPLORATION WITH REPAIR LACERATED ULNAR ARTERY Left 11/24/2019 Performed by Skyler Bowen MD at [facility] [place] 3YEARS AGO COLOSTOMY CLOSURE Therapy Plan Need [...] early mobility guidelines. Equipment: gait belt, telemetry Telemetry/[place]: Yes Oxygen Used: room air Other: fall [...] and pants. Patient was able to static maintenance fitter front of toilet with contact guard. Patient was unable to void due to trouble with processing, safety and judgement. Home Management - IADL Other: patient has trouble executing tasks. patient was able to ambulate into bathroom with contact guard. patient required min assist to doff underware and pants. Patient was able to static maintenance fitter front of toilet with contact guard. Patient [...] problems. Principal Problem: Dementia with behavioral disturbance ([facility]) Active Problems: Altered mental status Status post colostomy, follow-up exam ([facility]) Physical Therapy Evaluation Discharge Recommendations PT Recommendations: [...] 6 Clicks: Basic Mobility Raw Score: 20 [facility] G Code Modifier: CJ Therapy Plan Need for skilled Physical Therapy to address deficits in functional mobility due to a status decline resulting from admission 07/06 as a transfer from [facility] for neurological work up. Patient diagnosed with early onset dementia 2022, per spouse report after usp and med changes cognitive status had improved and stabilized prior to fall in May 2024. 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 Pt discharged to inpatient treatment facility and returned to [facility] for scheduled MRI. 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 Principal Problem: Dementia with behavioral disturbance ([facility]) Active Problems: Altered mental status Status post colostomy, follow-up exam ([facility]) Problem: Safety Goal: Patient will be injury free during hospitalization Description: INTERVENTIONS: 1. Assess patient's risk for falls and implement fall prevention plan of care per policy 2. Provide and maintain a safe environment 3. Proper use of double Identifiers 4. Medication administration using the 5 rights 5. Hand hygiene 6. Specimens are labeled at the bedside 7. Instruct patient/ patient client relations representative about use of safety devices 8. Include patient/ patient client relations representative in decisions related to safety Outcome: Progressing Note: Evaluation of progress towards goal: Patient remains injury and fall free. Safety precautions in place: call light within reach, bed in lowest position, personal belongings within reach, oriented to environment, and non-slip footwear on. Problem: Knowledge Deficit Goal: Patient/patient client relations representative demonstrates understanding of disease process, [...] Collaborate with ancillary departments 14. Include patient/patient client relations representative in decisions related to anxiety Outcome: Progressing Note: Evaluation of progress towards goal: Patient's has at bedside to help with spells of anxiety. Problem: Moderate - High Risk Fall Score Description: Gallegos Fall Score of =/> 25 or indicated by [facility] Assessment Goal: Patient should be free from fall Description: Interventions: 1. Lawson to environment 2. Hourly rounds addressing the [...] non-skid footwear 11. Teach patient and patient client relations representative to maintain environment for safety [...] (cane, walker) within reach 19. Request patient client relations representative bring adaptive equipment/mobility aids from home or obtain and provide as needed 20. Consult pharmacy regarding effects of med's affecting mobility, cognition, and alternatives 21. Obtain physician order for PT if risk factors associated with mobility are present 22. Obtain physician order for OT as appropriate 23. Utilize diversional activities 24. Educate patient and patient client relations representative how to maintain a safe environment during visitation times (notify nurse prior to leaving bedside) 25. Consider appropriateness of medical or non-medical radiation therapist 26. Set up voiding schedule as appropriate (every 2 hours) Outcome: Progressing Note: Evaluation of progress towards goal: Patient remains injury and fall free. Safety precautions in place: call light within reach, bed in lowest position, personal belongings within reach, oriented to environment, and non-slip footwear on. Problem: Safety - Medical Restraint Goal: Remains free of injury from restraints (Restraint for Interference with Personal Vehicle Advisor) Description: INTERVENTIONS: 1. Determine that other, less [...] Free from restraint(s) (Restraint for Interference with Personal Vehicle Advisor) Description: INTERVENTIONS: 1. ONCE/SHIFT or MINIMUM Q12H: [...] CN escalated this case to CN leadership. Education Sales Consultant will continue to follow for any discharge [...] at the bedside 7. Instruct patient/ patient client relations representative about use of safety devices 8. Include patient/ patient client relations representative in decisions related to safety Outcome: Progressing Note: Evaluation of progress towards goal: Patient remains injury free at present time. Safe environment provided and maintained. Medications administered using 5 rights. Problem: Knowledge Deficit Goal: Patient/patient client relations representative demonstrates understanding of disease process, [...] Collaborate with ancillary departments 14. Include patient/patient client relations representative in decisions related to anxiety Outcome: Progressing Note: Evaluation of progress towards goal: Patient has family at bedside assisting with anxiety. Problem: Safety - Medical Restraint Goal: Remains free of injury from restraints (Restraint for Interference with Personal Vehicle Advisor) Description: INTERVENTIONS: 1. Determine that other, less [...] Free from restraint(s) (Restraint for Interference with Personal Vehicle Advisor) Description: INTERVENTIONS: 1. ONCE/SHIFT or MINIMUM Q12H: [...] continue to follow along. Prognosis Services: Skilled MICROBIOLOGY INSTRUCTOR services to address the above deficits Prognosis/Potential: [...] Plan Speech Therapy Care Plan (Active) Template: [facility] Speech Problem: Auditory Comprehension Dates: Start: 07/12/24 Disciplines: MICROBIOLOGY INSTRUCTOR Goal: LTG: Patient will comprehend communication related to basic medical and social needs and utilize compensatory strategies to maintain safety in a functional living environment Dates: Start: 07/12/24 Expected End: 08/12/24 Disciplines: MICROBIOLOGY INSTRUCTOR Goal: STG: Patient will answer complex yes/no questions with 90% accuracy with minimal cueing Dates: Start: 07/12/24 Expected End: 08/12/24 Disciplines: MICROBIOLOGY INSTRUCTOR Goal: STG: Patient will complete 1-3 step commands with 90% accuracy with minimal cueing Dates: Start: 07/12/24 Expected End: 08/12/24 Disciplines: MICROBIOLOGY INSTRUCTOR Goal: STG: Patient will complete simple, phrase level auditory comprehension tasks with 90% accuracy with minimal cueing Dates: Start: 07/12/24 Expected End: 08/12/24 Disciplines: MICROBIOLOGY INSTRUCTOR Problem: Cognitive Linguistic Dates: Start: 07/12/24 Disciplines: MICROBIOLOGY INSTRUCTOR Goal: LTG: Patient will display functional cognitive-linguistic skills to demonstrate appropriate communication and safety within daily activities in a functional living environment Dates: Start: 07/12/24 Expected End: 08/12/24 Disciplines: MICROBIOLOGY INSTRUCTOR Goal: STG: Patient will demonstrate sustained attention by maintaining focus during a task for 10 minutes with minimal assistance Dates: Start: 07/12/24 Expected End: 08/12/24 Disciplines: MICROBIOLOGY INSTRUCTOR Goal: STG: Patient will be appropriately oriented to person, place, time and situation with 90% accuracy with minimal cueing Dates: Start: 07/12/24 Expected End: 08/12/24 Disciplines: MICROBIOLOGY INSTRUCTOR Goal: STG: Patient will recall information discussed during therapy session via retelling/answering questions with 90% accuracy with minimal cueing Dates: Start: 07/12/24 Expected End: 08/12/24 Disciplines: MICROBIOLOGY INSTRUCTOR Problem: High Level Language Dates: Start: 07/12/24 Disciplines: MICROBIOLOGY INSTRUCTOR Goal: LTG: Patient will demonstrate use of self-awareness, goal setting, planning, initiation, self-monitoring and problem solving during daily activities to improve safety and awareness in a functional living environment Dates: Start: 07/12/24 Expected End: 08/12/24 Disciplines: MICROBIOLOGY INSTRUCTOR Goal: STG: Patient will sequence 4-6 steps to a task (verbal, written, pictures) with 90% accuracy with minimal cueing Dates: Start: 07/12/24 Expected End: 08/12/24 Disciplines: MICROBIOLOGY INSTRUCTOR Goal: STG: Patient will provide 3 appropriate solutions to problems of daily living with 90% accuracy with minimal cueing Dates: Start: 07/12/24 Expected End: 08/12/24 Disciplines: MICROBIOLOGY INSTRUCTOR Goal: STG: Patient will demonstrate functional problem solving and safety awareness with 90% accuracy in daily living tasks in order to increase safe interactions with environment and decrease assistance from caregivers Dates: Start: 07/12/24 Expected End: 08/12/24 Disciplines: MICROBIOLOGY INSTRUCTOR Problem: Verbal Expression Dates: Start: 07/12/24 Disciplines: MICROBIOLOGY INSTRUCTOR Goal: LTG: Patient will utilize compensatory strategies to communicate wants and needs effectively to different conversational partners, maintain safety and participate socially in a functional living environment Dates: Start: 07/12/24 Expected End: 08/12/24 Disciplines: MICROBIOLOGY INSTRUCTOR Goal: STG: Patient will respond to simple/complex open ended questions during activities of daily living with 90% accuracy with minimal cueing Dates: Start: 07/12/24 Expected End: 08/12/24 Disciplines: MICROBIOLOGY INSTRUCTOR Goal: STG: Patient will maintain topic of conversation to decrease tangential speech with 90% accuracy with minimal cueing Dates: Start: 07/12/24 Expected End: 08/12/24 Disciplines: MICROBIOLOGY INSTRUCTOR Speech Therapy Care Plan (Resolved) There are no resolved problems. Principal Problem: Dementia with behavioral disturbance ([facility]) Active Problems: Altered mental status Status post colostomy, follow-up exam ([facility]) Problem: Safety - Medical Restraint Goal: Remains free of injury from restraints (Restraint for Interference with Personal Vehicle Advisor) Description: INTERVENTIONS: 1. Determine that other, less [...] Free from restraint(s) (Restraint for Interference with Personal Vehicle Advisor) Description: INTERVENTIONS: 1. ONCE/SHIFT or MINIMUM Q12H: [...] elimination needs BEHAVIORAL RESTRAINTS PROVIDER ONE HOUR [id number] EVALUATION NOTE Noé Jeffery was evaluated on [...] at the bedside 7. Instruct patient/ patient client relations representative about use of safety devices 8. Include patient/ patient client relations representative in decisions related to safety Outcome: Progressing Note: Evaluation of progress towards goal: Patient remains injury and fall free. Safety precautions in place: call light within reach, bed in lowest position, personal belongings within reach, oriented to environment, and non-slip footwear on. Problem: Knowledge Deficit Goal: Patient/patient client relations representative demonstrates understanding of disease process, [...] Collaborate with ancillary departments 14. Include patient/patient client relations representative in decisions related to anxiety Outcome: Progressing Note: Evaluation of progress towards goal: Patient has at bedside aiding in assisting with anxiety. Problem: Moderate - High Risk Fall Score Description: Gallegos Fall Score of =/> 25 or indicated by [facility] Assessment Goal: Patient should be free from fall Description: Interventions: 1. Lawson to environment 2. Hourly rounds addressing the [...] non-skid footwear 11. Teach patient and patient client relations representative to maintain environment for safety [...] (cane, walker) within reach 19. Request patient client relations representative bring adaptive equipment/mobility aids from home or obtain and provide as needed 20. Consult pharmacy regarding effects of med's affecting mobility, cognition, and alternatives 21. Obtain physician order for PT if risk factors associated with mobility are present 22. Obtain physician order for OT as appropriate 23. Utilize diversional activities 24. Educate patient and patient client relations representative how to maintain a safe environment during visitation times (notify nurse prior to leaving bedside) 25. Consider appropriateness of medical or non-medical radiation therapist 26. Set up voiding schedule as appropriate [...] unpredictable and confused. Discharge Plan: TRUDI [facility] psych stated [facility] was sent a referral and they have declined. Waiting input from psych. Education Sales Consultant will continue to follow for any discharge needs. - Lesia Caba RN 07/11/24 12:06 PM Late entery: CN met with patient, Kari, and sister Ewa on Tuesday afternoon. and sister want the patient to go to a Traumatic Brain Injury rehab unit. CN began researching TBI Rehab units in the area, reported back to the and sister after finding TBI rehab units in [facility]. Sister asked for me to look in [facility]. and sister do not want any referrals send until they are able to meet with the neurologist again, sister wants to look into the TBI units in the [facility] herself before any referrals are sent. - Lesia Caba RN 07/12/24 8:11 AM Referral sent to [facility] to assess for [facility] to [facility]. After a clinical review and screening was completed [facility] assessed patient as inappropriate for treatment at that facility. Will alert care team. - NANCY Martines 07/11/24 10:33 AM DISCHARGE PLANNING NOTE Updates to Assurance [phone] Problem: Safety Goal: Patient will be injury free during hospitalization Description: INTERVENTIONS: 1. Assess patient's risk for falls and implement fall prevention plan of care per policy 2. Provide and maintain a safe environment 3. Proper use of double Identifiers 4. Medication administration using the 5 rights 5. Hand hygiene 6. Specimens are labeled at the bedside 7. Instruct patient/ patient client relations representative about use of safety devices 8. Include patient/ patient client relations representative in decisions related to safety Outcome: Progressing Note: Evaluation of progress towards goal: Patient remains injury free at present time. Safe environment provided and maintained. Medications administered using 5 rights. Problem: Knowledge Deficit Goal: Patient/patient client relations representative demonstrates understanding of disease process, [...] Collaborate with ancillary departments 14. Include patient/patient client relations representative in decisions related to anxiety Outcome: Progressing Note: Evaluation of progress towards goal: Patient has at bedside assisting with anxiety. Problem: Moderate - High Risk Fall Score Description: Gallegos Fall Score of =/> 25 or indicated by [facility] Assessment Goal: Patient should be free from fall Description: Interventions: 1. Lawson to environment 2. Hourly rounds addressing the [...] non-skid footwear 11. Teach patient and patient client relations representative to maintain environment for safety [...] (cane, walker) within reach 19. Request patient client relations representative bring adaptive equipment/mobility aids from home or obtain and provide as needed 20. Consult pharmacy regarding effects of med's affecting mobility, cognition, and alternatives 21. Obtain physician order for PT if risk factors associated with mobility are present 22. Obtain physician order for OT as appropriate 23. Utilize diversional activities 24. Educate patient and patient client relations representative how to maintain a safe environment during visitation times (notify nurse prior to leaving bedside) 25. Consider appropriateness of medical or non-medical radiation therapist 26. Set up voiding schedule as appropriate [...] injury from restraints (Restraint for Interference with Personal Vehicle Advisor) Description: INTERVENTIONS: 1. Determine that other, less [...] Free from restraint(s) (Restraint for Interference with Personal Vehicle Advisor) Description: INTERVENTIONS: 1. ONCE/SHIFT or MINIMUM Q12H: [...] elimination needs BEHAVIORAL RESTRAINTS PROVIDER ONE HOUR [id number] EVALUATION NOTE Noé Jeffery was evaluated on [...] at the bedside 7. Instruct patient/ patient client relations representative about use of safety devices 8. Include patient/ patient client relations representative in decisions related to safety [...] hygiene technique. 7. Identify and instruct patient/patient client relations representative in use of appropriate isolation precautions for identified infection/symptoms. 8. Provide and discuss with patient/patient client relations representative on educational MDRO sheet. 9. Encourage and monitor nutritional status daily and consult nutrition professor if indicated. 10. Implement neutropenic guidelines as needed. Outcome: Progressing Note: Evaluation of progress towards goal: Patient remains free of any signs of infection. Signs and symptoms being monitor such as fevers, chills, warm/red areas. Problem: Knowledge Deficit Goal: Patient/patient client relations representative demonstrates understanding of disease process, [...] Collaborate with ancillary departments 14. Include patient/patient client relations representative in decisions related to anxiety Outcome: Progressing Note: Evaluation of progress towards goal: Patient's anxiety is at manageable level. Problem: Safety - Medical Restraint Goal: Remains free of injury from restraints (Restraint for Interference with Personal Vehicle Advisor) Description: INTERVENTIONS: 1. Determine that other, less [...] Free from restraint(s) (Restraint for Interference with Personal Vehicle Advisor) Description: INTERVENTIONS: 1. ONCE/SHIFT or MINIMUM Q12H: [...] on patient's door 9. Provide patient/ patient client relations representative with isolation education. Outcome: Progressing Note: Evaluation of progress towards goal: Discard single-use items. Clean reusable equipment. Wear gloves for direct and indirect patient care. Wash hands before and after care of patient. Problem: Moderate - High Risk Fall Score Description: Gallegos Fall Score of =/> 25 or indicated by [facility] Assessment Goal: Patient should be free from fall Description: Interventions: 1. Lawson to environment 2. Hourly rounds addressing the [...] non-skid footwear 11. Teach patient and patient client relations representative to maintain environment for safety [...] (cane, walker) within reach 19. Request patient client relations representative bring adaptive equipment/mobility aids from home or obtain and provide as needed 20. Consult pharmacy regarding effects of med's affecting mobility, cognition, and alternatives 21. Obtain physician order for PT if risk factors associated with mobility are present 22. Obtain physician order for OT as appropriate 23. Utilize diversional activities 24. Educate patient and patient client relations representative how to maintain a safe environment during visitation times (notify nurse prior to leaving bedside) 25. Consider appropriateness of medical or non-medical radiation therapist 26. Set up voiding schedule as appropriate [...] at the bedside 7. Instruct patient/ patient client relations representative about use of safety devices 8. Include patient/ patient client relations representative in decisions related to safety [...] hygiene technique. 7. Identify and instruct patient/patient client relations representative in use of appropriate isolation precautions for identified infection/symptoms. 8. Provide and discuss with patient/patient client relations representative on educational MDRO sheet. 9. Encourage and monitor nutritional status daily and consult nutrition professor if indicated. 10. Implement neutropenic guidelines as needed. Outcome: Progressing Note: Evaluation of progress towards goal: patient remains afebrile at this time Problem: Knowledge Deficit Goal: Patient/patient client relations representative demonstrates understanding of disease process, [...] Collaborate with ancillary departments 14. Include patient/patient client relations representative in decisions related to anxiety Outcome: Progressing Note: Evaluation of progress towards goal: discussed w/ patient coping strategies & dietary changes that may aid in controlling stress & anxiety. Problem: Safety - Medical Restraint Goal: Remains free of injury from restraints (Restraint for Interference with Personal Vehicle Advisor) Description: INTERVENTIONS: 1. Determine that other, less [...] Free from restraint(s) (Restraint for Interference with Personal Vehicle Advisor) Description: INTERVENTIONS: 1. ONCE/SHIFT or MINIMUM Q12H: [...] on patient's door 9. Provide patient/ patient client relations representative with isolation education. Outcome: Progressing Note: Evaluation of progress towards goal: patient remains afebrile at this time Problem: Moderate - High Risk Fall Score Description: Gallegos Fall Score of =/> 25 or indicated by [facility] Assessment Goal: Patient should be free from fall Description: Interventions: 1. Lawson to environment 2. Hourly rounds addressing the [...] non-skid footwear 11. Teach patient and patient client relations representative to maintain environment for safety [...] (cane, walker) within reach 19. Request patient client relations representative bring adaptive equipment/mobility aids from home or obtain and provide as needed 20. Consult pharmacy regarding effects of med's affecting mobility, cognition, and alternatives 21. Obtain physician order for PT if risk factors associated with mobility are present 22. Obtain physician order for OT as appropriate 23. Utilize diversional activities 24. Educate patient and patient client relations representative how to maintain a safe environment during visitation times (notify nurse prior to leaving bedside) 25. Consider appropriateness of medical or non-medical radiation therapist 26. Set up voiding schedule as appropriate [...] VILLANUEVA discussed case with colin Solorio SW Education Sales Consultant will continue to follow for any discharge [...] at the bedside 7. Instruct patient/ patient client relations representative about use of safety devices 8. Include patient/ patient client relations representative in decisions related to safety [...] hygiene technique. 7. Identify and instruct patient/patient client relations representative in use of appropriate isolation precautions for identified infection/symptoms. 8. Provide and discuss with patient/patient client relations representative on educational MDRO sheet. 9. Encourage and monitor nutritional status daily and consult nutrition professor if indicated. 10. Implement neutropenic guidelines as needed. Outcome: Progressing Note: Evaluation of progress towards goal: Skin integrity remains in stable condition; remains w/o ss of infection, fever, pain, or increased discomfort. Problem: Knowledge Deficit Goal: Patient/patient client relations representative demonstrates understanding of disease process, [...] be free from fall Description: Interventions: 1. Lawson to environment 2. Hourly rounds addressing the [...] non-skid footwear 11. Teach patient and patient client relations representative to maintain environment for safety [...] Collaborate with ancillary departments 14. Include patient/patient client relations representative in decisions related to anxiety [...] on patient's door 9. Provide patient/ patient client relations representative with isolation education. Outcome: Progressing Note: Evaluation of progress towards goal: Skin integrity remains in stable condition; remains w/o ss of infection, fever, pain, or increased discomfort. Problem: Moderate - High Risk Fall Score Description: Gallegos Fall Score of =/> 25 or indicated by [facility] Assessment Goal: Patient should be free from fall Description: Interventions: 1. Lawson to environment 2. Hourly rounds addressing the [...] non-skid footwear 11. Teach patient and patient client relations representative to maintain environment for safety [...] (cane, walker) within reach 19. Request patient client relations representative bring adaptive equipment/mobility aids from home or obtain and provide as needed 20. Consult pharmacy regarding effects of med's affecting mobility, cognition, and alternatives 21. Obtain physician order for PT if risk factors associated with mobility are present 22. Obtain physician order for OT as appropriate 23. Utilize diversional activities 24. Educate patient and patient client relations representative how to maintain a safe environment during visitation times (notify nurse prior to leaving bedside) 25. Consider appropriateness of medical or non-medical radiation therapist 26. Set up voiding schedule as appropriate (every 2 hours) Outcome: Progressing Note: Evaluation of progress towards goal: Call light within reach. Remains free of fall or injury. Environment free of clutter. BEHAVIORAL RESTRAINTS PROVIDER ONE HOUR [id number] EVALUATION NOTE Noé Jeffery was evaluated on [...] at the bedside 7. Instruct patient/ patient client relations representative about use of safety devices 8. Include patient/ patient client relations representative in decisions related to safety [...] hygiene technique. 7. Identify and instruct patient/patient client relations representative in use of appropriate isolation precautions for identified infection/symptoms. 8. Provide and discuss with patient/patient client relations representative on educational MDRO sheet. 9. Encourage and monitor nutritional status daily and consult nutrition professor if indicated. 10. Implement neutropenic guidelines as needed. Outcome: Progressing Note: Evaluation of progress towards goal: patient remains afebrile at this time Problem: Knowledge Deficit Goal: Patient/patient client relations representative demonstrates understanding of disease process, [...] of 0 - 24 or indicated by [facility] Assessment Goal: Patient should be free from fall Description: Interventions: 1. Lawson to environment 2. Hourly rounds addressing the [...] non-skid footwear 11. Teach patient and patient client relations representative to maintain environment for safety [...] Collaborate with ancillary departments 14. Include patient/patient client relations representative in decisions related to anxiety [...] injury from restraints (Restraint for Interference with Personal Vehicle Advisor) Description: INTERVENTIONS: 1. Determine that other, less [...] Free from restraint(s) (Restraint for Interference with Personal Vehicle Advisor) Description: INTERVENTIONS: 1. ONCE/SHIFT or MINIMUM Q12H: [...] on patient's door 9. Provide patient/ patient client relations representative with isolation education. Outcome: Progressing Note: Evaluation of progress towards goal: patient remains afebrile at this time DISCHARGE PLANNING NOTE Clinical updates including sent to. [facility]. (P# [phone] ; F# [phone]) via Dishable Query Response Note CDI QUERY TEXT: Altered [...] . Thank you, Ethel Bueno RN, CDI [email or web address] The patient's Clinical Indicators include: As above CDI RESPONSE TEXT: Patient has progression of dementia causing agitation, no evidence of metabolic or toxic encephalopathy. Query created by: Ethel Bueno on 07/09/2024 5:42 AM Electronically signed by: Lonnie Baker MD 07/09/2024 3:22 PM DISCHARGE PLANNING NOTE Referral sent to [facility] [address] (P# [phone] ; F# [phone]) via efax DISCHARGE PLANNING NOTE Per RN during discharge transition rounds, barriers to discharge are: Needs MRI with sedation, LP with sedation, non-violent restraints, confused, restless, and disoriented, psych needs to see Discharge Plan: TBD. Planning placement or inpatient behavioral unit. CN does not believe it is safe for patient to return home. Psych SW following. Education Sales Consultant will continue to follow for any discharge [...] at the bedside 7. Instruct patient/ patient client relations representative about use of safety devices 8. Include patient/ patient client relations representative in decisions related to safety [...] hygiene technique. 7. Identify and instruct patient/patient client relations representative in use of appropriate isolation precautions for identified infection/symptoms. 8. Provide and discuss with patient/patient client relations representative on educational MDRO sheet. 9. Encourage and monitor nutritional status daily and consult nutrition professor if indicated. 10. Implement neutropenic guidelines as needed. Outcome: Progressing Note: Evaluation of progress towards goal: monitor s/s of infection Problem: Knowledge Deficit Goal: Patient/patient client relations representative demonstrates understanding of disease process, [...] of 0 - 24 or indicated by [facility] Assessment Goal: Patient should be free from fall Description: Interventions: 1. Lawson to environment 2. Hourly rounds addressing the [...] non-skid footwear 11. Teach patient and patient client relations representative to maintain environment for safety [...] Collaborate with ancillary departments 14. Include patient/patient client relations representative in decisions related to anxiety [...] injury from restraints (Restraint for Interference with Personal Vehicle Advisor) Description: INTERVENTIONS: 1. Determine that other, less [...] Free from restraint(s) (Restraint for Interference with Personal Vehicle Advisor) Description: INTERVENTIONS: 1. ONCE/SHIFT or MINIMUM Q12H: [...] hourly rounding BEHAVIORAL RESTRAINTS PROVIDER ONE HOUR [id number] EVALUATION NOTE Noé Jeffery was evaluated on [...] PPH NIGHT BEHAVIORAL RESTRAINTS PROVIDER ONE HOUR [id number] EVALUATION NOTE Noé Jeffery was evaluated on [...] at the bedside 7. Instruct patient/ patient client relations representative about use of safety devices 8. Include patient/ patient client relations representative in decisions related to safety [...] hygiene technique. 7. Identify and instruct patient/patient client relations representative in use of appropriate isolation precautions for identified infection/symptoms. 8. Provide and discuss with patient/patient client relations representative on educational MDRO sheet. 9. Encourage and monitor nutritional status daily and consult nutrition professor if indicated. 10. Implement neutropenic guidelines as needed. Outcome: Progressing Note: Evaluation of progress towards goal: Patient has no infection at this time. Problem: Knowledge Deficit Goal: Patient/patient client relations representative demonstrates understanding of disease process, [...] of 0 - 24 or indicated by [facility] Assessment Goal: Patient should be free from fall Description: Interventions: 1. Lawson to environment 2. Hourly rounds addressing the [...] non-skid footwear 11. Teach patient and patient client relations representative to maintain environment for safety [...] Collaborate with ancillary departments 14. Include patient/patient client relations representative in decisions related to anxiety [...] at the bedside 7. Instruct patient/ patient client relations representative about use of safety devices 8. Include patient/ patient client relations representative in decisions related to safety [...] hygiene technique. 7. Identify and instruct patient/patient client relations representative in use of appropriate isolation precautions for identified infection/symptoms. 8. Provide and discuss with patient/patient client relations representative on educational MDRO sheet. 9. Encourage and monitor nutritional status daily and consult nutrition professor if indicated. 10. Implement neutropenic guidelines as needed. Outcome: Progressing Note: Evaluation of progress towards goal: monitor s/s of infection, monitor labs, standard precautions Problem: Knowledge Deficit Goal: Patient/patient client relations representative demonstrates understanding of disease process, [...] be free from fall Description: Interventions: 1. Lawson to environment 2. Hourly rounds addressing the [...] non-skid footwear 11. Teach patient and patient client relations representative to maintain environment for safety [...] at the bedside 7. Instruct patient/ patient client relations representative about use of safety devices 8. Include patient/ patient client relations representative in decisions related to safety [...] hygiene technique. 7. Identify and instruct patient/patient client relations representative in use of appropriate isolation precautions for identified infection/symptoms. 8. Provide and discuss with patient/patient client relations representative on educational MDRO sheet. 9. Encourage and monitor nutritional status daily and consult nutrition professor if indicated. 10. Implement neutropenic guidelines as needed. Outcome: Progressing Note: Evaluation of progress towards goal: Patient remains free of any signs of infection. Signs and symptoms being monitor such as fevers, chills, warm/red areas. Problem: Knowledge Deficit Goal: Patient/patient client relations representative demonstrates understanding of disease process, [...] of 0 - 24 or indicated by [facility] Assessment Goal: Patient should be free from fall Description: Interventions: 1. Lawson to environment 2. Hourly rounds addressing the [...] non-skid footwear 11. Teach patient and patient client relations representative to maintain environment for safety [...] Description: INTERVENTIONS: 1. Encourage patient or legal client relations representative to report early pain and [...] per policy 9. Teach patient or legal client relations representative interventions for comforting Outcome: Completed Note: Evaluation of progress towards goal: Patient has no complaints of pain. Reassessed per policy. An attempt was made to interview the patient today in the presence of his . The patient refused and asked the typewriters functional tester to leave stating that he does not want a psychiatric evaluation. Psychiatry will sign off. Images from the original note were not included. DISCHARGE PLANNING NOTE Health Services Administrator met with patient, introduced self, and explained role. Patient educated on safe discharge plan. Pt admitted 07/06/2024 with Dementia with behavioral disturbance ([facility]) [F03.918] At risk for long QT syndrome [Z91.89] Altered mental status [R41.82] per chart review. Consults: Neurology and Psychiatry Discharge Barriers per Daily Transition Rounds and chart review: Psych and neuro to see, will need EEG, MRI, CT brain. Past Medical History: Diagnosis Date GERD (gastroesophageal reflux disease) High cholesterol Perforated sigmoid colon ([facility]) Prior to admission patient was living with spouse/significant other and self care. Medical equipment patient used prior to admission includes: CPAP. Patient spouse denies need for transportation/ food/ prescription medication assistance resources. PCP: JAE LOPEZ MD Pharmacy:[facility] PCP and pharmacy confirmed with patient. CN [...] 07/06/24 11:02 AM documented in this encounter [facility] 07-22-2024 Nurse Note AVS discussed with patient and family, no further questions about discharge. No further needs identified. Patient taken downstairs by wheelchair to be driven home by . Patient still off unit at this time 11:58 s/p sedated MRI & LP procedure. Per neurologist, Dr Johnson, patient needs to remain flat 1-2hrs & may have regular diet. Health Services Administrator awaiting patient return to unit & per report 1:1 sitter remains at patient bedside. documented in this encounter [facility] 07-22-2024 Plan of care note Problem: Safety [...] at the bedside 7. Instruct patient/ patient client relations representative about use of safety devices 8. Include patient/ patient client relations representative in decisions related to safety Outcome: Progressing Note: Evaluation of progress towards goal: pt remains free from injury. Family at bedside. Problem: Knowledge Deficit Goal: Patient/patient client relations representative demonstrates understanding of disease process, [...] Score of =/> 25 or indicated by [facility] Assessment Goal: Patient should be free from fall Description: Interventions: 1. Lawson to environment 2. Hourly rounds addressing the [...] non-skid footwear 11. Teach patient and patient client relations representative to maintain environment for safety [...] (cane, walker) within reach 19. Request patient client relations representative bring adaptive equipment/mobility aids from home or obtain and provide as needed 20. Consult pharmacy regarding effects of med's affecting mobility, cognition, and alternatives 21. Obtain physician order for PT if risk factors associated with mobility are present 22. Obtain physician order for OT as appropriate 23. Utilize diversional activities 24. Educate patient and patient client relations representative how to maintain a safe environment during visitation times (notify nurse prior to leaving bedside) 25. Consider appropriateness of medical or non-medical radiation therapist 26. Set up voiding schedule as appropriate (every 2 hours) Outcome: Progressing Note: Evaluation of progress towards goal: pt remains free from falls. Fall precautions in place and family at bedside Problem: Moderate - High Risk Fall Score Description: Gallegos Fall Score of =/> 25 or [facility] Goal: Patient should be free from fall Description: Interventions: 1. Lawson to environment 2. Hourly rounds addressing the [...] non-skid footwear 11. Teach patient and patient client relations representative to maintain environment for safety [...] (cane, walker) within reach 19. Request patient client relations representative bring adaptive equipment/mobility aids from home or obtain and provide as needed 20. Consult pharmacy regarding effects of med's affecting mobility, cognition, and alternatives 21. Obtain physician order for PT if risk factors associated with mobility are present 22. Obtain physician order for OT as appropriate 23. Utilize diversional activities 24. Educate patient and patient client relations representative how to maintain a safe environment during visitation times (notify nurse prior to leaving bedside) 25. Consider appropriateness of medical or non-medical radiation therapist 26. Set up voiding schedule as appropriate (every 2 hours) Outcome: Progressing Note: Evaluation of progress towards goal: pt remains free from falls. Fall precautions in place and family at bedside [facility] 07-21-2024 Progress note Formatting of t his note might be different from the original. DISCHARGE PLANNING NOTE Health Services Administrator spoke with RN KAY Graf and with kiln charger Mylena about current situation regarding appeal decision and DC plan to home with outpatient services. Health Services Administrator placed a call to the who was in the patient's room due to the questions she had re: the discharge plan. Health Services Administrator spoke with , Kari on 07/21/24 at 1325. Health Services Administrator reviewed Eduardo's DC Appeal Determination Notification with the who confirmed that she had received a voicemail from [facility] this morning. Health Services Administrator explained that Eduardo had agreed with the termination of hospital services after having reviewed the uploaded clinical documents from this hospitalization that typewriters functional tester had sent to them yesterday. expressed verbal understanding to typewriters functional tester of Eduardo's decision. Health Services Administrator explained that patient's financial liability would begin at Noon on 07/22/24 and offered our care navigation assistance with obtaining transportation to home. had questions about why referrals were not made to detention facilities that family had now chosen, [facility] ([place]) and [facility] Health Services Administrator explained to the that the patient did not meet the clinical criteria this time for a detention/rehab facility level of care and reminded her that a discussion about this took place this past week/yesterday with the treatment team. explained that she never agreed to take her home and her and her family now want SNF placement. Health Services Administrator continued to explain to the process of [...] prior to bringing him to the hospital. Health Services Administrator offered supportive listening to the and also offered for her to connect with patient's PCP, Dr. Lopez after she gets her home for resources. Health Services Administrator also discussed the outpatient TBI clinic appointment that was being discussed yesterday and that information would be included on patient's after visit summary. Health Services Administrator explained that if was not going to make arrangements to take patient home by noon on 07/22, that patient's financial responsibility of $2640.00 per day would begin. expressed verbal understanding to typewriters functional tester. Health Services Administrator emailed financial responsibility form with instruction to kiln chargerCm (and cce'd today's RN Lesia Felton for awareness) for bedside delivery today. is aware of pending paper copy delivery of this form. - NELLI GLEZ HAT MODEL CARE NAVIGATION 07/21/24 2:11 PM [facility] 07-21-2024 Progress note Formatting of t his note might be different from the original. DISCHARGE PLANNING NOTE We have received DC Appeal Determination Notification from Daryl and Daryl has agreed with the termination of services. Beneficiary liability begins 07.22.2024 by Noon. Beneficiary and/or beneficiary client relations representative were to be notified of determination via phone call. Joanta determination notification rec'd at 1032 and letter rec'd [phone] were received by typewriters functional tester via fax. Health Services Administrator uploaded documents to document list. Documentation updated. Health Services Administrator received forwarded voice mail 07/21/24 at 1032 from Eduardo Duran's Immediate Advocacy Department , who had left message on Care Navigation Department voice mail at 1617 on 07/20/24, stating he was representing patient's family who had called [facility] asking 1) why denial reason wasn't given re: transfer to another care facility and 2) if the preferred facility by family was able to accept. Reference Case # given from Nica [id number]. Health Services Administrator attempted to call Nica back on 07/21/24 at 1214 and typewriters functional tester rec'd auto message from [facility] which stated only live phone calls with [facility] are Tuesday thru Tuesday. Health Services Administrator left voicemail citing reference case # [id number]. Health Services Administrator stated reason for return phone call and requested call back from Nica. - NELLI GLEZ HAT MODEL CARE NAVIGATION 07/21/24 12:37 PM [facility] 07-21-2024 Plan of care note Problem: [...] at the bedside 7. Instruct patient/ patient client relations representative about use of safety devices 8. Include patient/ patient client relations representative in decisions related to safety Outcome: Progressing Note: Evaluation of progress towards goal: Pain will be adequately controlled to allow for rest and adl's Problem: Knowledge Deficit Goal: Patient/patient client relations representative demonstrates understanding of disease process, [...] Score of =/> 25 or indicated by [facility] Assessment Goal: Patient should be free from fall Description: Interventions: 1. Lawson to environment 2. Hourly rounds addressing the [...] non-skid footwear 11. Teach patient and patient client relations representative to maintain environment for safety [...] (cane, walker) within reach 19. Request patient client relations representative bring adaptive equipment/mobility aids from home or obtain and provide as needed 20. Consult pharmacy regarding effects of med's affecting mobility, cognition, and alternatives 21. Obtain physician order for PT if risk factors associated with mobility are present 22. Obtain physician order for OT as appropriate 23. Utilize diversional activities 24. Educate patient and patient client relations representative how to maintain a safe environment during visitation times (notify nurse prior to leaving bedside) 25. Consider appropriateness of medical or non-medical radiation therapist 26. Set up voiding schedule as appropriate (every 2 hours) Outcome: Progressing Note: Evaluation of progress towards goal: fall bundle [facility] 07-21-2024 History of Present illness Narrative Images from the original note were not included. 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 [facility] Neurology General Neurology Consultation Progress Note Consult Neurology Service: [phone] Primary Team: M[facility] Hospitalist Chief Concern and Reason for Consultation: cognitive decline Interval History: Noé Jeffery is a 59 y.o. year old male for whom Neurology was consulted for chief concern of cognitive decline. He has history of hyperlipidemia, complex sleep apnea, GERD, type 2 diabetes, major neurocognitive disorder with biomarkers confirmed early onset Alzheimer's disease (established at [facility] in October 2022), and epilepsy from the [...] and proprioception throughout. Cerebellar: Able to do [id number] bilaterally; normal coordination Gait and station: Deferred. [...] confirmed early onset Alzheimer's disease (established at [facility] in October 2022), and epilepsy from the [...] to Tuesday 12-1:00 p.m. Primary Neurology service: [phone] Consult neurology service: [phone] Resident Stroke Service: [phone] If the patient belongs to the Stroke [...] List: Principal Problem: Dementia with behavioral disturbance ([facility]) Active Problems: Altered mental status Status post colostomy, follow-up exam ([facility]) Consulting Providers Provider Service Specialty Mina Franks MD Psychiatry Psychiatry Jessica Johnson MD -- Neurology Sonya Astudillo MD Z Physical Medicine and Rehabilitation Physical Medicine & Rehabilitation Chief complaint-behavioral issues 59-year-old male patient with Confirmed early onset Alzheimer's disease established in [facility] October 2022, patient had fall [...] per family request. I also spoke with [facility] neurology 's office. They said that they are independent office and they do not have resources for transfer or admission to [facility]. They also will not be able to [...] from the original note were not included. [facility] HOSPITALIST PROGRESS NOTE 07/18/2024 Patient Name: Noé Jeffery : 1965 Code status: Problem List: Principal Problem: Dementia with behavioral disturbance ([facility]) Active Problems: Altered mental status Status post colostomy, follow-up exam ([facility]) Consulting Providers Provider Service Specialty Mina Franks MD Psychiatry Psychiatry Jessica Johnson MD -- Neurology Sonya Astudillo MD Z Physical Medicine and Rehabilitation Physical Medicine & Rehabilitation Chief complaint-behavioral issues 59-year-old male patient with Confirmed early onset Alzheimer's disease established in [facility] October 2022, patient had fall [...] today. Patient working with therapies. Going to [facility]. No new weakness. Objective: Last [...] left ulnar artery Dementia with behavioral disturbance ([facility]) Altered mental status Status post colostomy, follow-up exam ([facility]) PLAN Cont PT/OT - would recommend inpatient [...] Summary: Pt transferred and direct admitted to [facility] as a transfer from [facility] for neurological evaluation 2/2 aggressive behavior and hostility. PMH: early-onset dementia, T2DM, GERD, and perforated colon. Biochemical Data, Medical Tests, and Procedures: 07/16, restraints: pt now out of restraints with cooling tower technician at side Labs: Results from last 3 [...] (H) 05/10/2016 Lab Results Component Value Date [id number] 07/08/2024 Lab Results Component Value Date [...] capsule 500 mg 500 mg oral Q12H [facility] Nichol Heath MD 500 mg at 07/17/24 [...] injection 5,000 Units 5,000 Units subcutaneous Q8H [facility] Nichol Heath MD 5,000 Units at 07/17/24 [...] Skin (per nursing flow sheets): Skin Color: [place]; Pale (07/17/24904) Skin Temp: Warm; Dry (07/17/24904) [...] oz) Admit Weight: 83.9 kg (unknown, 06/24) [place] Body Weight: Unknown as no wt on file Weight Changes: No wt since admission 2/2 pt aggression Admit Body Mass Index: Same as current BMI Current Body Mass Index: Body mass index is 30.78 kg/m . Comparative Standards: Estimated Energy Needs: 0093-0898 kcals daily. Method and weight used: 25-32 kcal/kg IBW Estimated Protein Needs: 74-124 grams daily. Method and weight used: 1.2-2g protein/kg IBW Estimated Fluid Needs: 0596-4814 ml daily. Method weight used: 1 ml/kcal Comments: floor needs Malnutrition Status: Malnutrition Present: No NUTRITION DIAGNOSIS: Intake Diagnosis: Predicted suboptimal nutrient intake (NI 5.11.1)--ongoing NUTRITION INTERVENTIONS: Meals and Snacks: Continue per MICROBIOLOGY INSTRUCTOR and medical team recommendations Supplements: Will add [...] from the original note were not included. [facility] 07/17/2024 Patient Name: Noé Jeffery : 1965 Code status: Problem List: Principal Problem: Dementia with behavioral disturbance ([facility]) Active Problems: Altered mental status Status post colostomy, follow-up exam ([facility]) Consulting Providers Provider Service Specialty Mina Franks MD Psychiatry Psychiatry Jessica Johnson MD -- Neurology Sonya Astudillo MD Z Physical Medicine and Rehabilitation Physical Medicine & Rehabilitation Chief complaint-behavioral issues 59-year-old male patient with Confirmed early onset Alzheimer's disease established in [facility] October 2022, patient had fall [...] note were not included. [facility] 07/16/2024 Patient Name: Noé Jeffery : 1965 Problem List: Principal Problem: Dementia with behavioral disturbance ([facility]) Active Problems: Altered mental status Status post colostomy, follow-up exam ([facility]) Assessment Rapid onset Dementia with behavioral disturbances [...] Spinal Fluid culture includes gram stain, CSF [[id number]] Collected: 07/10/24 0939 Specimen: Cerebrospinal Fluid Updated: [...] left ulnar artery Dementia with behavioral disturbance ([facility]) Altered mental status Status post colostomy, follow-up exam ([facility]) Recommendations/Plan: Continue PT, OT and speech therapy Contact guard assist with gait and transfers Will need 24 hour supervision Fall precautions, status post fall Family education Melatonin to regulate sleep cycle Awaiting on placement Will follow up with you for rehab needs Sonya Astudillo MD Images from the original note were not included. [facility] 07/15/2024 Patient Name: Noé Jeffery : 1965 Problem List: Principal Problem: Dementia with behavioral disturbance ([facility]) Active Problems: Altered mental status Status post colostomy, follow-up exam ([facility]) Assessment Rapid onset Dementia with behavioral disturbances [...] Spinal Fluid culture includes gram stain, CSF [[id number]] Collected: 07/10/24 0939 Specimen: Cerebrospinal Fluid Updated: 07/15/24 0656 Gram Stain Result WHITE BLOOD CELLS PRESENT NO ORGANISMS SEEN ON CONCENTRATED SMEAR Culture NO GROWTH 5 DAYS Physical Medicine and Rehabilitation Daily Progress Note Today's Date and Time: 07/15/2024, 8:01 AM Subjective/Chief complaint: Dementia with behavioral disturbance ([facility]) Principal Problem: Dementia with behavioral disturbance ([facility]) Active Problems: Altered mental status Status post colostomy, follow-up exam ([facility]) SUBJECTIVE Resting in bed, no distress, Brief [...] No results found for: ALB , PROT @[facility]:3)@ No results found for: CRP No results [...] left ulnar artery Dementia with behavioral disturbance ([facility]) Altered mental status Status post colostomy, follow-up exam ([facility]) Recommendations/Plan: Continue PT, OT and speech therapy Contact guard assist with gait and transfers Will need 24 hour supervision Fall precautions, status post fall Family education Melatonin to regulate sleep cycle Awaiting on placement Will follow up with you for rehab needs Sonya Astudillo MD Images from the original note were not included. [facility] 2024 Patient Name: Noé Jeffery : 1965 Problem List: Principal Problem: Dementia with behavioral disturbance ([facility]) Active Problems: Altered mental status Status post colostomy, follow-up exam ([facility]) Assessment Rapid onset Dementia with behavioral disturbances [...] Spinal Fluid culture includes gram stain, CSF [[id number]] Collected: 07/10/24 0939 Specimen: Cerebrospinal Fluid Updated: 07/14/24 09 Gram Stain Result WHITE BLOOD CELLS PRESENT NO ORGANISMS SEEN ON CONCENTRATED SMEAR Culture NO GROWTH 4 DAYS Physical Medicine and Rehabilitation Daily Progress Note Today's Date and Time: 2024, 8:23 AM Subjective/Chief complaint: Dementia with behavioral disturbance ([facility]) Principal Problem: Dementia with behavioral disturbance ([facility]) Active Problems: Altered mental status Status post colostomy, follow-up exam ([facility]) SUBJECTIVE Resting in bed, no distress, Brief [...] left ulnar artery Dementia with behavioral disturbance ([facility]) Altered mental status Status post colostomy, follow-up exam ([facility]) Recommendations/Plan: Continue PT, OT and speech therapy Contact guard assist with gait and transfers Will need 24 hour supervision Fall precautions, status post fall Family education Melatonin to regulate sleep cycle Awaiting on placement Will follow up with you for rehab needs Sonya Astudillo MD Images from the original note were not included. [facility] 07/13/2024 Patient Name: Noé Jeffery : 1965 Problem List: Principal Problem: Dementia with behavioral disturbance ([facility]) Active Problems: Altered mental status Status post colostomy, follow-up exam ([facility]) Assessment Rapid onset Dementia with behavioral disturbances [...] Spinal Fluid culture includes gram stain, CSF [[id number]] Collected: 07/10/24 0939 Specimen: Cerebrospinal Fluid Updated: [...] left ulnar artery Dementia with behavioral disturbance ([facility]) Altered mental status Status post colostomy, follow-up exam ([facility]) Recommendations/Plan: Continue PT, OT and speech therapy Contact guard assist with gait and transfers Will benefit from inpatient rehab, TBI Unit Will need 24 hour supervision Fall precautions, status post fall Family education Melatonin to regulate sleep cycle Will follow up with you for rehab needs Sonya Astudillo MD Images from the original note were not included. [facility] 07/12/2024 Patient Name: Noé Jeffery : 1965 Problem List: Principal Problem: Dementia with behavioral disturbance ([facility]) Active Problems: Altered mental status Status post colostomy, follow-up exam ([facility]) Assessment Rapid onset Dementia with behavioral disturbances [...] Spinal Fluid culture includes gram stain, CSF [[id number]] Collected: 07/10/24 0939 Specimen: Cerebrospinal Fluid Updated: 07/12/24 0736 Gram Stain Result WHITE BLOOD CELLS PRESENT NO ORGANISMS SEEN ON CONCENTRATED SMEAR Culture NO GROWTH 2 DAYS Images from the original note were not included. [facility] Neurology General Neurology Consultation Progress Note Consult Neurology Service: [phone] Chief Complaint and Reason for Consultation: Decline [...] with complete remission. He follows up with [facility] Neurology and had underwent a heavy metal [...] decline, Patient had presented to ED in [place] June 18 after waking up not oriented and delusional. Then June 25 he woke up again not knowing where he is delusional thinking his sister was an intruder so he was brought to [facility] and discharged later that evening. 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 The impression there was no infectious or metabolic etiology so patient was transferred to [facility] for higher level of care. Interval [...] markers confirmed early onset Alzheimer's established in [facility] September 2022 (Dr. Lemuel Guerra) but reportedly functional at home per family, in addition to hyperlipidemia, GERD, T2DM. Patient was transferred found [facility] for higher level of care and workup of sharp decline in cognition since May 2024. Patient had presented multiple times to the ED and admitted [facility] for delusional thinking/hallucinations/agitatio n. Impression: Acute decline [...] case any further questions or concerns arise. Arnulfo Haley MD PGY2 Neurology [facility] Seen and staffed with: Dr. Nails This patient is being followed by the Neurology Resident service. Contact attending directly during these hours: Tuesday to 7:30-8:30 A.M. to Tuesday 12-1:00 p.m. Primary Neurology service: [phone] Consult neurology service: [phone] Resident Stroke Service: [phone] If the patient belongs to the Stroke [...] any question or concerns. Zach Nails MD. Louver Mortiser Operator of Neurology [facility] Images from the original note were not included. [facility] 07/11/2024 Patient Name: Noé Jeffery : [...] discharge, currently working on disposition. Refused from [address] [place] [address] DVT prophylaxis: Heparin Code Status: Full Plan [...] COMPARISON: July 03, 2024 brain MRI from [facility] Procedure: Multiplanar, multisequence imaging performed through the [...] and cranio-cervical junction. Flow voids documented in [place] and dural venous sinuses. No [...] Spinal Fluid culture includes gram stain, CSF [[id number]] Collected: 07/10/24 0939 Specimen: Cerebrospinal Fluid Updated: 07/11/24 0718 Gram Stain Result WHITE BLOOD CELLS PRESENT NO ORGANISMS SEEN ON CONCENTRATED SMEAR Culture NO GROWTH <24 HRS Images from the original note were not included. [facility] Neurology General Neurology Consultation Progress Note Consult Neurology Service: [phone] Chief Complaint and Reason for Consultation: Decline [...] with complete remission. He follows up with [facility] Neurology and had underwent a heavy metal [...] decline, Patient had presented to ED in [place] June 18 after waking up not oriented and delusional. Then June 25 he woke up again not knowing where he is delusional thinking his sister was an intruder so he was brought to [facility] and discharged later that evening. 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 The impression there was no infectious or metabolic etiology so patient was transferred to [facility] for higher level of care. Interval [...] markers confirmed early onset Alzheimer's established in [facility] September 2022 (Dr. Lemuel Guerra) but reportedly functional at home per family, in addition to hyperlipidemia, GERD, T2DM. Patient was transferred found [facility] for higher level of care and workup of sharp decline in cognition since May 2024. Patient had presented multiple times to the ED and admitted [facility] for delusional thinking/hallucinations/agitatio n. Impression: Acute decline [...] follow. Arnulfo Haley MD PGY2 Neurology [facility] Seen and staffed with: Dr. Nails This patient is being followed by the Neurology Resident service. Contact attending directly during these hours: Tuesday to 7:30-8:30 A.M. to Tuesday 12-1:00 p.m. Primary Neurology service: [phone] Consult neurology service: [phone] Resident Stroke Service: [phone] If the patient belongs to the Stroke [...] evaluation and appropriate disposition. Zach Nails MD. Louver Mortiser Operator of Neurology [facility] Images from the original note were not included. [facility] 07/10/2024 Patient Name: Noé Jeffery : [...] COMPARISON: July 03, 2024 brain MRI from [facility] Procedure: Multiplanar, multisequence imaging performed through the [...] and cranio-cervical junction. Flow voids documented in [place] and dural venous sinuses. No [...] Spinal Fluid culture includes gram stain, CSF [[id number]] Resulted: 07/10/24 1055 Updated: 07/10/24 1148 Images from the original note were not included. [facility] 07/09/2024 Patient Name: Noé Jeffery : [...] from the original note were not included. [facility] Neurology General Neurology Consultation Progress Note Consult Neurology Service: [phone] Chief Complaint and Reason for Consultation: Decline [...] with complete remission. He follows up with [facility] Neu[facility] and had underwent a heavy metal [...] decline, Patient had presented to ED in [place] June 18 after waking up not oriented and delusional. Then June 25 he woke up again not knowing where he is delusional thinking his sister was an intruder so he was brought to [facility] and discharged later that evening. 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 The impression there was no infectious or metabolic etiology so patient was transferred to [facility] for higher level of care. Interval [...] markers confirmed early onset Alzheimer's established in [facility] September 2022 (Dr. Lemuel Guerra) but reportedly functional at home per family, in addition to hyperlipidemia, GERD, T2DM. Patient was transferred found [facility] for higher level of care and workup of sharp decline in cognition since May 2024. Patient had presented multiple times to the ED and admitted [facility] for delusional thinking/hallucinations/agitatio n. Impression: Acute decline [...] follow. Arnulfo Haley MD PGY2 Neurology [facility] Seen and staffed with: Dr. Nails This patient is being followed by the Neurology Resident service. Contact attending directly during these hours: Tuesday to 7:30-8:30 A.M. to Tuesday 12-1:00 p.m. Primary Neurology service: [phone] Consult neurology service: [phone] Resident Stroke Service: [phone] If the patient belongs to the Stroke [...] of violent/anger outburst/paranoid behavior. Zach Nails MD. Louver Mortiser Operator of Neurology [facility] NUTRITION ADULT INITIAL EVALUATION NUTRITION ASSESSMENT: Reason [...] 11/24/2019 Performed by Skyler Bowen MD at [facility] 3YEARS AGO COLOSTOMY CLOSURE Social/ Cognitive/ Economic: Pt in an agitated state and screaming from room. Unable to see pt as RN reports he has been in a very agitated state at the time of RD visit. Brief Clinical Summary: Pt transferred and direct admitted to [facility] as a transfer from [facility] for neurological evaluation 2/2 aggressive behavior [...] (H) 05/10/2016 Lab Results Component Value Date [id number] 07/08/2024 Lab Results Component Value Date [...] 5,000 Units 5,000 Units subcutaneous Q8H JAREK Nicohl Heath MD 5,000 Units at 07/09/24 0653 [...] Skin (per nursing flow sheets): Skin Color: [place]; Pale (07/08/24 08) Skin Temp: Warm; Dry [...] Type: NPO NPO Except: Except medications 07/08/24 6717 Diet Intakes: Percent Meals Eaten (%): 100 [...] Weight: Unknown as no wt on file. [place] Body Weight: 61.8 kg Percent [place] Body Weight: 136 Weight Changes: No wt's on file to assess Body Mass Index: 30.7 kg^m2 BMI Category: Obese (> or = 30.0) Note: Calculations based on previous wt and ht on file from 06/24 07/22 no anthropometrics on file for this admission. Comparative Standards: Estimated Energy Needs: 5514-2898 kcals daily. Method and weight used: 25-32 kcal/kg IBW Estimated Protein Needs: 74-124 grams daily. Method and weight used: 1.2-2g protein/kg IBW Estimated Fluid Needs: 0178-3111 ml daily. Method weight used: 1 ml/kcal Comments: floor needs Malnutrition Status: Malnutrition Present: No NUTRITION DIAGNOSIS: Intake Diagnosis: Predicted suboptimal nutrient intake (NI 5.11.1) related to self monitoring deficit as evidenced by nursing screen reporting pt eating <50% of normal intake x 2 weeks. NUTRITION INTERVENTIONS: Meals and Snacks: Continue per MICROBIOLOGY INSTRUCTOR and medical team recommendations Supplements: Will add [...] original note were not included. [facility] Hospital[facility] 07/08/2024 Patient Name: Noé Jeffery : [...] from the original note were not included. [facility] Neurology General Neurology Consultation Progress Note Consult Neurology Service: [phone] Chief Complaint and Reason for Consultation: Decline [...] with complete remission. He follows up with [facility] Neurology and had underwent a heavy metal [...] decline, Patient had presented to ED in [place] June 18 after waking up not oriented and delusional. Then June 25 he woke up again not knowing where he is delusional thinking his sister was an intruder so he was brought to [facility] and discharged later that evening. 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 The impression there was no infectious or metabolic etiology so patient was transferred to [facility] for higher level of care. Interval [...] markers confirmed early onset Alzheimer's established in [facility] September 2022 (Dr. Lemuel Guerra) but reportedly functional at home per family, in addition to hyperlipidemia, GERD, T2DM. Patient was transferred found [facility] for higher level of care and workup of sharp decline in cognition since May 2024. Patient had presented multiple times to the ED and admitted [facility] for delusional thinking/hallucinations/agitatio n. Impression: Acute decline [...] follow. Cecile Henry MD PGY-3 Neurology Resident [facility] Seen and staffed with: Dr. Nails This patient is being followed by the Neurology Resident service. Contact attending directly during these hours: Tuesday to 7:30-8:30 A.M. to Tuesday 12-1:00 p.m. Primary Neurology service: [phone] Consult neurology service: [phone] Resident Stroke Service: [phone] If the patient belongs to the Stroke [...] of violent/anger outburst/paranoid behavior. Zach Nails MD. Louver Mortiser Operator of Neurology [facility] Images from the original note were not included. [facility] Neurology General Neurology Consultation Progress Note Consult Neurology Service: [phone] Chief Complaint and Reason for Consultation: Decline [...] with complete remission. He follows up with [facility] Neurology and had underwent a heavy metal screen, [facility] analysis, MRI 2021 showing severe [...] decline, Patient had presented to ED in [place] June 18 after waking up not oriented and delusional. Then June 25 he woke up again not knowing where he is delusional thinking his sister was an intruder so he was brought to [facility] and discharged later that evening. 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 The impression there was no infectious or metabolic etiology so patient was transferred to [facility] for higher level of care. Interval [...] Daily sodium chloride, 3 mL, intravenous, Q12H [facility] Continuous Infusions: PRN Meds:. acetaminophen dextrose dextrose [...] markers confirmed early onset Alzheimer's established in [facility] October 2022 in addition to hyperlipidemia, GERD, dm 2. Patient was transferred found [facility] for higher level of care and workup of sharp decline in cognition since May 2024. Patient had presented multiple times to the ED and admitted [facility] for delusional thinking/hallucinations/agitatio n. Impression: Acute decline [...] follow. Arnulfo Haley MD PGY2 Neurology [facility] Seen and staffed with: Dr. Nails This patient is being followed by the Neurology Resident service. Contact attending directly during these hours: Tuesday to 7:30-8:30 A.M. to Tuesday 12-1:00 p.m. Primary Neurology service: [phone] Consult neurology service: [phone] Resident Stroke Service: [phone] If the patient belongs to the Stroke [...] type), obtain routine EEG. Zach Nails MD. Louver Mortiser Operator of Neurology [facility] [employer] Images from the original note were not included. [facility] Patient Name: Noé Jeffery : 1965 Problem List: Principal Problem: Dementia with behavioral disturbance ([facility]) Active Problems: Altered mental status Assessment Rapid [...] last 168 hours. documented in this encounter [facility] 07-21-2024 Plan of care note Problem: Safety [...] at the bedside 7. Instruct patient/ patient client relations representative about use of safety devices 8. Include patient/ patient client relations representative in decisions related to safety Outcome: Progressing Note: Evaluation of progress towards goal: pt remains free from injury Problem: Knowledge Deficit Goal: Patient/patient client relations representative demonstrates understanding of disease process, [...] Score of =/> 25 or indicated by [facility] Assessment Goal: Patient should be free from fall Description: Interventions: 1. Lawson to environment 2. Hourly rounds addressing the [...] non-skid footwear 11. Teach patient and patient client relations representative to maintain environment for safety [...] (cane, walker) within reach 19. Request patient client relations representative bring adaptive equipment/mobility aids from home or obtain and provide as needed 20. Consult pharmacy regarding effects of med's affecting mobility, cognition, and alternatives 21. Obtain physician order for PT if risk factors associated with mobility are present 22. Obtain physician order for OT as appropriate 23. Utilize diversional activities 24. Educate patient and patient client relations representative how to maintain a safe environment during visitation times (notify nurse prior to leaving bedside) 25. Consider appropriateness of medical or non-medical radiation therapist 26. Set up voiding schedule as appropriate (every 2 hours) Outcome: Progressing Note: Evaluation of progress towards goal: fall precautions in place and pt remains free from falls [facility] 07-20-2024 Progress note Formatting of t his note might be different from the original. DISCHARGE PLANNING NOTE Patient's family has appealed his discharge & we have received notification from 1jiajie that a DC appeal has been called in. The chart, DND form, & IMM have been successfully uploaded by typewriters functional tester to the [employer] and [facility] by [facility]. [facility] will notify the of the patient of the appeal determination. Health Services Administrator phone called patient's & read the DND notice to her. Paper copy of the DND notice to be delivered to the patient's bedside. Health Services Administrator informed to anticipate phone call from Livanta re: determination of DC Appeal & encouraged wifeto answer the phone when Livanta calls. expressed verbal understanding of DND and the DC appeal process. - NELLI GLEZ HAT MODEL CARE NAVIGATION 07/20/24 5:13 PM [facility] 07-20-2024 Consult note Associated Order (s): IP CONSULT TO NEUROSURGERY Images from the original note were not included. [facility] [address] [place] [address], [address] [place] [address] * NEUROSURGERY CONSULT NOTE DATE:07/20/2024 PATIENT'S NAME: [...] gel 15 g, 15 g, oral, PRN, Nicohl Heath MD dextrose 50 % in water [...] 11/24/2019 Performed by Skyler Bowen MD at [facility] COLONOSCOPY [place] 3YEARS AGO COLOSTOMY CLOSURE PUNCTURE LUMBAR N/A 07/10/2024 Performed by Zach Nails MD at [facility] FAMILY HISTORY Family History Problem Relation Age [...] care per primary team FRAN Burton Neurosurgery [facility] Please contact via ClearServeChat first then can utilize Patient touch/VoceraEdge if needed- 07/20/24 3:45 PM To find out which ASHLEE is on for the day please go to CloudOn and use log in Talkwheel and search for PTH Neurosurgery FRAN Charles 07/20/24 9136 RS' [facility] Get Fractal [facility] 07-20-2024 Consult note Associated Order (s): IP CONSULT TO NEUROSURGERY Images from the original note were not included. [facility] [address] [place] [address], [address] [place] [address] * NEUROSURGERY CONSULT NOTE DATE:07/20/2024 PATIENT'S NAME: [...] 11/24/2019 Performed by Skyler Bowen MD at [facility] COLONOSCOPY [place] 3YEARS AGO COLOSTOMY CLOSURE PUNCTURE LUMBAR N/A 07/10/2024 Performed by Zach Nails MD at [facility] FAMILY HISTORY Family History Problem Relation Age [...] care per primary team FRAN Burton Neurosurgery [facility] Please contact via [employer] first then can utilize Patient touch/VoceraEdge if needed- 07/20/24 3:45 PM To find out which ASHLEE is on for the day please go to CloudOn and use log in Talkwheel and search for PTH Neurosurgery FRAN Charles 07/20/24 1632 Images from the original note were not included. [facility] Neurology General Neurology Consult Note Primary Neurology service: [phone] Patient - Noé Jeffery Age - 59 y.o. - 1965 [id number] Date of Admission - 07/06/2024 7:28 AM [...] with complete remission. He follows up with [facility] Neurology and had underwent a heavy metal [...] and symmetric in all four extremities. Coordination Dwwuzd-hf-tjty, rapid alternating movements and vozw-ba-juoj normal bilaterally without dysmetria. Gait Deferred. Psychiatric [...] biomarkers confirmed early onset diagnosis established in [facility] September 2022 but reportedly functional at home per family in addition to hyperlipidemia, GERD, dm 2. Patient was transferred from [facility] for higher level of care and workup [...] Neurology standpoint Khalif Valerio MD PGY-1 Neurology [facility] 07/19/24 1:[address] Sofia This patient is being followed by the Neurology Resident service. Contact attending directly during these hours: Tuesday to 7:30-8:30 A.M. to Tuesday 12-1:00 p.m. Primary Neurology service: [phone] Consult neurology service: [phone] Resident Stroke Service: [phone] If the patient belongs to the Stroke [...] for: EAG Lab Results Component Value Date [id number] 07/08/2024 Neurological work up: CT head CTA head and neck MRI brain 05/07/2022 hippocampal volume loss. White matter changes. 2 D echo Assessment and recommendations Delirium superimposed on baseline cognitive impairment Presyncope likely neurocardiogenic Hypotension Early-onset Alzheimer disease confirmed with bio markers at [facility] Upon examination patient is awake, is noted [...] Compliant: Principal Problem: Dementia with behavioral disturbance ([facility]) Active Problems: Altered mental status Status post colostomy, follow-up exam ([facility]) Reason for Consultation: Rehabilitation Candidacy and Rehab Pencil Sorter Physicians/Services Consulting Providers Provider Service Specialty Mina [...] reflux disease) High cholesterol Perforated sigmoid colon ([facility]) PSH Past Surgical History: Procedure Laterality Date ARM EXPLORATION WITH REPAIR LACERATED ULNAR ARTERY Left 11/24/2019 Performed by Skyler Bowen MD at [facility] COLONOSCOPY [place] 3YEARS AGO COLOSTOMY CLOSURE Allergies Allergies Allergen [...] mg/dL Cytology Collection Time: 07/10/24 9:39 AM [facility] [address] [place] [address] Cytology Consultation Patient Name:NOÉ JEFFERY:1965 (Age: 58)Gender:MTaken:07/10/2024Report ed:07/11/2024 16:49Physician(s):Arnulfo Haley M.D. ([phone])Copy To:Quinton Harrell M.D. Rec. #:[id number]: #[id number] Final Cytologic Diagnosis Cerebrospinal fluid: No malignant cells identified. 07/11/2024 Interpretation performed at [facility], [address] [place] [address], License number: [id number].Electronically Signed Out By Derick Lorenz MD Additional Report(s): Flow Cytometry-Surg/BM/NG Date Reported: # Immunophenotyping antibodies tested: CD3, CD4, CD5, CD7, CD8, CD19, CD20, CD45, [place], and Lambda. Immunophenotyping Comment: Immunophenotyping has been used in this diagnostic evaluation. This test was developed and its performance characteristics determined by the [employer] [facility] Department. It has not been [...] MD Clinical History Dementia with behavioral disturbance ([facility]) F03.918, acute change in personality Gross Description Received was 2ml of clear colorless fluid unfixed labeled as Jeffery, CSF . Also received is one cytospin slide from Hematology. Source of Specimen Cerebrospinal fluid Non SLOPE HOIST OPERATOR ThinPrep, Cytospin Slide Fee Code(s): 1; 45526 VDRL, Spinal Fluid Collection Time: 07/10/24 9:39 [...] Assessment/Plan Principal Problem: Dementia with behavioral disturbance ([facility]) Active Problems: Altered mental status Status post colostomy, follow-up exam ([facility]) Acute mental status change patient also was [...] PRESENT ILLNESS: The patient is a 58-year-old [place] male treatment at the [facility] for the patient has a substantial history of dyslipidemia, sleep apnea, type 2 diabetes mellitus, recent diagnosed history of early-onset Alzheimer's dementia, an epileptic disorder in remission, as well as a recent admission to [facility] for altered mental status. An MRI of [...] discharged to a memory care unit or alf that is well-versed in the treatment of [...] 11/24/2019 Performed by Skyler Bowen MD at [facility] 3YEARS AGO COLOSTOMY CLOSURE Medications Prior to [...] to a memory care unit or a alf that is well-versed in management of memory [...] from the original note were not included. [facility] Neurology General Neurology Consult Note Primary Neurology service: [phone] Chief Complaint: HPI: Noé Jeffery is a [...] with complete remission. He follows up with [facility] Neurology and had underwent a heavy metal [...] decline, Patient had presented to ED in [place] June 18 after waking up not oriented and delusional. Then June 25 he woke up again not knowing where he is delusional thinking his sister was an intruder so he was brought to [facility] and discharged later that evening. 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 The impression there was no infectious or metabolic etiology so patient was transferred to [facility] for higher level of care. On my evaluation patient was restless fidgeting and did not allow me to speak him or enter the room, he would tell me his family members names what refused to tell me his name asked me to leave the room. I could not do any assessment [place] test or neurological exam. Per family patient [...] markers confirmed early onset Alzheimer's established in [facility] October 2022 in addition to hyperlipidemia, GERD, dm 2. Patient was transferred found [facility] for higher level of care and workup of sharp decline in cognition since May 2024. Patient had presented multiple times to the ED and admitted [facility] for delusional thinking/hallucinations/agitatio n. On evaluation patient [...] once reconciled. Khalif Valerio MD PGY-1 Neurology [facility] 07/06/24 9:[address] Sofia This patient is being followed by the Neurology Resident service. Contact attending directly during these hours: Tuesday to 7:30-8:30 A.M. to Tuesday 12-1:00 p.m. Primary Neurology service: [phone] Consult neurology service: [phone] Resident Stroke Service: [phone] If the patient belongs to the Stroke ASHLEE service please contact the Stroke ASHLEE directly. Cosigned by Kelley Sofia MD at 07/06/2024 11:32 PM EST Associated attestation - Kelley Sofia MD - 07/06/2024 11:32 PM EST Kelley Sofia MD Neurology documented in this encounter [facility] 07-20-2024 Hospital Discharge instructions Suzanne Shpiley MD - 07/20/2024 3:28 PM EST 07/30 at 12:40 Hospital follow up with Fidelina Fisher CNP [facility] [place] [address] [place] [address] Please follow up with Neurosurgery [...] Hospital follow up with Fidelina Fisher CNP [facility] [place] [address] [place] [address] Pt. should bring the following [...] For NEW patients, MD will not prescribe snf pain medication. The following attachments cannot be sent through Care Everywhere.Dementia Discharge Instructions (Ukrainian)Time to stop driving? (Ukrainian)Dementia (including Alzheimer disease) (Ukrainian)documented in this encounter [facility] 07-20-2024 Plan of care note Problem: Safety [...] at the bedside 7. Instruct patient/ patient client relations representative about use of safety devices 8. Include patient/ patient client relations representative in decisions related to safety Outcome: Progressing Note: Evaluation of progress towards goal: Patient remains injury free at this time. Problem: Knowledge Deficit Goal: Patient/patient client relations representative demonstrates understanding of disease process, [...] Score of =/> 25 or indicated by [facility] Assessment Goal: Patient should be free from fall Description: Interventions: 1. Lawson to environment 2. Hourly rounds addressing the [...] non-skid footwear 11. Teach patient and patient client relations representative to maintain environment for safety [...] (cane, walker) within reach 19. Request patient client relations representative bring adaptive equipment/mobility aids from home or obtain and provide as needed 20. Consult pharmacy regarding effects of med's affecting mobility, cognition, and alternatives 21. Obtain physician order for PT if risk factors associated with mobility are present 22. Obtain physician order for OT as appropriate 23. Utilize diversional activities 24. Educate patient and patient client relations representative how to maintain a safe environment during visitation times (notify nurse prior to leaving bedside) 25. Consider appropriateness of medical or non-medical radiation therapist 26. Set up voiding schedule as appropriate (every 2 hours) Outcome: Progressing Note: Evaluation of progress towards goal: Patient remains free from falls at this time. [facility] 07-20-2024 Telephone encounter Note Spoke to , Kari. Pt is currently at [facility]. Pt is being denied an admit to rehab facility. I am unable to view notes from that hospital. Suggestion given to [facility] as [facility] does not have a TBI clinic. Family will have to work with staff at [facility]. Verbalized understanding. [facility] 07-20-2024 Miscellaneous Notes Spoke to , Kari. Pt is currently at [facility]. Pt is being denied an admit to rehab facility. I am unable to view notes from that hospital. Suggestion given to [facility] as [facility] does not have a TBI clinic. Family will have to work with staff at [facility]. Verbalized understanding. Spoke with Dr Harmon (sp?) from [facility] regarding patient. Family is requesting transfer to a [facility] TBI center, inpatient. I advised that Dr Guerra cannot assist in this matter. Patient mailbox is full unable to leave message Patient returned your call and can be reached at: Call patient at: on cell [phone] (home) [phone] (cell) documented in this encounter [facility] 07-20-2024 Progress note Formatting of t his note might be different from the original. DISCHARGE PLANNING NOTE 07/30 at 12:40 Hospital follow up with Fidelina Fisher CNP [facility] [place] [address], [place] [id number] [facility] 07-20-2024 Hospital course Narrative Images from the original note were not included. 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 Also contacted [facility], per family request. Spoke with Dr.Mary Mcdermott, [...] outpatient workup. I also spoke with Neurosurgery COMMUNITY SUPPORT PROFESSIONAL Victorina Marcelino, and have made arrangements for [...] diet Follow up: Jae Lopez MD [address] [facility] [address] Schedule an appointment as soon as possible for a visit in 1 week(s) Jessica Johnson MD [address] [facility], [address] [facility] [phone] Schedule an appointment as soon as possible for a visit in 2 week(s) 07/30 at 12:40 Hospital follow up with Fidelina Fisher CNP [facility] TBI [address] [place], [place] [id number] Please follow up with Neurosurgery for colitis [...] 07/20/2024 4:18 PM documented in this encounter [facility] 07-20-2024 Progress note Formatting of t his note might be different from the original. Confirmed with Taylor at [facility] she did receive the updated notes (neuro, PMR, PT/OT) that were faxed and uploaded to [facility]. She is almost finishing writing it up for physician review and will call us with their determination by 10am. 9:31 am Received call from Taylor at [facility] IPR-she reviewed updated notes with nuclear medical technologist and they remain unable to accept after our 3rd request for review. She said he is doing too well functionally, does not need OT/PT services. She said after discussion with nuclear medical technologist their facility would be of no benefit to the patient. This information was communicated to interdisciplinary team via epic chat [facility] Telephone encounter Note Received transfer center [...] our network. Referring MD will confirm with manager case management that referrals were sent to all 3. If the patient is discharged home or to SNF, we can potentially expedite an appointment with our PMR colleagues/TBI multidisciplinary clinic. I will alert Drs. Aguilar and aErl to the referral. Briana Mcdermott MD [facility] Work Phone: 07-20-2024 Miscellaneous Notes Received transfer [...] our network. Referring MD will confirm with manager case management that referrals were sent to all 3. If the patient is discharged home or to SNF, we can potentially expedite an appointment with our PMR colleagues/TBI multidisciplinary clinic. I will alert Drs. Aguilar and Earl to the referral. Briana Mcdermott MD documented in this encounter [facility] 07-20-2024 Progress note Formatting of t his note might be different from the original. DISCHARGE PLANNING NOTE Sent face sheet to [facility] for hospital transfer via secure fax to # [phone] [facility] 07-20-2024 Progress note Formatting of t his note might be different from the original. DISCHARGE PLANNING NOTE Discharge plan- awaiting responses from [facility] if they can accept. Tasked [facility] to send neuro note from yesterday to them again. Tasked [facility] to fax his face sheet to [facility] per physician request since she is calling them about a hospital to hospital transfer per families request. Leadership team aware. - NANCY PARRISH 07/20/24 8:19 AM Discussed patient and d/c planning with leadership team. Everyone in agreement with d/c today since per physician [facility] can not accept as a hospital transfer and [facility] IPR has denied as well. Physician and this typewriters functional tester spoke with patient, and sister that is present re: d/c today and that patient will be going home with outpatient ST and an appointment has been made for a TBI clinic for follow up. Provided IMM to and explained. Leadership aware. - NANCY PARRISH 07/20/24 11:29 AM [facility] 07-20-2024 Progress note Formatting of t his note might be different from the original. DISCHARGE PLANNING NOTE Neuro Note sent to [facility] (P# [phone] ; F# [phone]) in careport and via [employer]. [facility] 07-20-2024 Plan of care note Problem: Safety [...] at the bedside 7. Instruct patient/ patient client relations representative about use of safety devices 8. Include patient/ patient client relations representative in decisions related to safety Outcome: Progressing Note: Evaluation of progress towards goal: Pt remains free from injury and significant other at bedside Problem: Knowledge Deficit Goal: Patient/patient client relations representative demonstrates understanding of disease process, [...] be free from fall Description: Interventions: 1. Lawson to environment 2. Hourly rounds addressing the [...] non-skid footwear 11. Teach patient and patient client relations representative to maintain environment for safety [...] (cane, walker) within reach 19. Request patient client relations representative bring adaptive equipment/mobility aids from home or obtain and provide as needed 20. Consult pharmacy regarding effects of med's affecting mobility, cognition, and alternatives 21. Obtain physician order for PT if risk factors associated with mobility are present 22. Obtain physician order for OT as appropriate 23. Utilize diversional activities 24. Educate patient and patient client relations representative how to maintain a safe environment during visitation times (notify nurse prior to leaving bedside) 25. Consider appropriateness of medical or non-medical radiation therapist 26. Set up voiding schedule as appropriate (every 2 hours) Outcome: Progressing Note: Evaluation of progress towards goal: pt remains free from falls and fall precautions are in place [facility] 07-19-2024 Progress note Formatting of t his note might be different from the original. DISCHARGE PLANNING NOTE Updates to [facility] (P# [phone] ; F# [phone]) [facility] [facility] 07-19-2024 Progress note Formatting of t [...] therapy per MARCI Rothman Equipment: gait belt Telemetry/[place]: No Oxygen Used: room air Other: fall [...] Date/Time User Outcome 07/17/24 1439 Yoanna Han-Mahoney, BURR BENCH HAND/L Progressing Problem: Standing Balance Dates: Start: 07/13/24 Disciplines: OT Goal: Improve balance to normal Dates: Start: 07/13/24 Expected End: 08/13/24 Description: Normal dynamic balance. Disciplines: OT Outcomes Date/Time User Outcome 07/19/24 1445 Yoanna Han-Mahoney, BURR BENCH HAND/L Progressing 07/17/24 1439 Yoanna Hna-Mahoney, KWADWO/L Progressing Problem: Toilet Transfers Dates: Start: [...] Han-Mahoney, KWADWO/L Progressing 07/17/24 1439 Yoanna Han-Mahoney, BURR BENCH HAND/L Progressing Occupational Therapy Care Plan (Resolved) There are no resolved problems. Principal Problem: Dementia with behavioral disturbance ([facility]) Active Problems: Altered mental status Status post colostomy, follow-up exam ([facility]) Cosigned by MAYNOR Dillon/Jerome at 07/19/2024 3:13 PM EST Associated attestation - Veronica Gorman OTR/Jerome - 07/19/2024 3:13 PM EST I have reviewed and agree with this note and education documentation for this visit. [facility] 07-19-2024 Progress note Formatting of t [...] therapy per MARCI Rothman Equipment: gait belt Telemetry/[place]: Yes Oxygen Used: room air Other: fall [...] Goal: Patient will perform stairs/curb with Modified [place] Dates: Start: 07/13/24 Expected End: 07/27/24 Description: [...] problems. Principal Problem: Dementia with behavioral disturbance ([facility]) Active Problems: Altered mental status Status post colostomy, follow-up exam ([facility]) Cosigned by Jose Gorman PT at 07/19/2024 3:14 PM EST Associated attestation - Jose Gorman, PT - 07/19/2024 3:14 PM EST I have reviewed and agree with this note and education documentation for this visit. [facility] 07-19-2024 Plan of care note Problem: [...] at the bedside 7. Instruct patient/ patient client relations representative about use of safety devices 8. Include patient/ patient client relations representative in decisions related to safety Outcome: Progressing Note: Evaluation of progress towards goal: Patient remains injury free at this time. Problem: Knowledge Deficit Goal: Patient/patient client relations representative demonstrates understanding of disease process, [...] Score of =/> 25 or indicated by [facility] Assessment Goal: Patient should be free from fall Description: Interventions: 1. Lawson to environment 2. Hourly rounds addressing the [...] non-skid footwear 11. Teach patient and patient client relations representative to maintain environment for safety [...] (cane, walker) within reach 19. Request patient client relations representative bring adaptive equipment/mobility aids from home or obtain and provide as needed 20. Consult pharmacy regarding effects of med's affecting mobility, cognition, and alternatives 21. Obtain physician order for PT if risk factors associated with mobility are present 22. Obtain physician order for OT as appropriate 23. Utilize diversional activities 24. Educate patient and patient client relations representative how to maintain a safe environment during visitation times (notify nurse prior to leaving bedside) 25. Consider appropriateness of medical or non-medical radiation therapist 26. Set up voiding schedule as appropriate (every 2 hours) Outcome: Progressing Note: Evaluation of progress towards goal: Patient remains free from falls. [facility] 07-19-2024 Consult note Formatting of th is note is different from the original. Images from the original note were not included. [facility] Neurology General Neurology Consult Note Primary Neurology service: [phone] Patient - Noé Jeffery Age - 59 [...] with complete remission. He follows up with [facility] and had underwent a heavy metal [...] and symmetric in all four extremities. Coordination Lhkwcm-qv-nhrm, rapid alternating movements and qcvt-ji-glhu normal bilaterally without dysmetria. Gait Deferred. Psychiatric [...] biomarkers confirmed early onset diagnosis established in [facility] September 2022 but reportedly functional at home per family in addition to hyperlipidemia, GERD, dm 2. Patient was transferred from [facility] for higher level of care and workup [...] Neurology standpoint Khalif Valerio MD PGY-1 Neurology [facility] 07/19/24 1:[address] Sofia This patient is being followed by the Neurology Resident service. Contact attending directly during these hours: Tuesday to 7:30-8:30 A.M. to Tuesday 12-1:00 p.m. Primary Neurology service: [phone] Consult neurology service: [phone] Resident Stroke Service: [phone] If the patient belongs to the Stroke [...] for: EAG Lab Results Component Value Date [id number] 07/08/2024 Neurological work up: CT head CTA head and neck MRI brain 05/07/2022 hippocampal volume loss. White matter changes. 2 D echo Assessment and recommendations Delirium superimposed on baseline cognitive impairment Presyncope likely neurocardiogenic Hypotension Early-onset Alzheimer disease confirmed with bio markers at [facility] Upon examination patient is awake, is noted [...] Note Spoke with Dr Harmon (sp?) from [facility] regarding patient. Family is requesting transfer to a [facility] TBI center, inpatient. I advised that Dr Guerra cannot assist in this matter. [facility] 07-19-2024 Progress note Formatting of t his note might be different from the original. DISCHARGE PLANNING NOTE Updates to [facility] (P# ; F# ) [facility] 07-19-2024 Progress note Formatting of t his note is different from the original. Images from the original note were not included. DISCHARGE PLANNING NOTE Discussed patient today during rounds. Plan-TBI center VS IPR. This typewriters functional tester and floor Mgr spoke with patient's over the phone and his sister in his room re: d/c planning. Updated them that [facility] has denied. Offered to send referral to [facility] to see if they can accept as well as sending blanketed SNF referrals. They are in agreement with sending to [facility] at this time and will let us know today if they would like SNF referrals sent or if the back up plan would be home. Tasked [facility] to send referral to [facility]. Leadership team aware. Services Requested: Services Requested Patient expects to be discharged to:: TBI center VS IPR Discharge Disposition: Acute rehab Patient Goals: Goals: Goals (pt-stated) Evaluation of progress towards goal: TBI center vs IPR - NANCY PARRISH 07/19/24 10:42 AM This typewriters functional tester and trading floor operator and Dr. Shipley spoke with patient, and sister re: d/c planning. They are aware that [facility] is still reviewing referral. Asked if SNF referrals can be sent and they declined stating they would like the physician to see if she can get him transferred to [facility] as a physician to physician transfer. Updated Leadership. If neither of these hospitals can accept then patient to d/c home with since SNF has been declined. - NANCY PARRISH 07/19/24 12:14 PM This typewriters functional tester and floor mgr spoke with family to let them know [facility] has denied patient and that they recommend SNF for him. Tasked [facility] to send neuro note from today to [facility] to see if they can accept him with this updated note. Leadership aware. - NANCY PARRISH 07/19/24 3:21 PM [facility] 07-19-2024 Plan of care note Problem: Safety [...] at the bedside 7. Instruct patient/ patient client relations representative about use of safety devices 8. Include patient/ patient client relations representative in decisions related to safety Outcome: Progressing Note: Evaluation of progress towards goal: Problem: Knowledge Deficit Goal: Patient/patient client relations representative demonstrates understanding of disease process, [...] Progressing Note: Evaluation of progress towards goal: [facility] 07-19-2024 Plan of care note Problem: [...] at the bedside 7. Instruct patient/ patient client relations representative about use of safety devices 8. Include patient/ patient client relations representative in decisions related to safety Outcome: Progressing Note: Evaluation of progress towards goal: Problem: Knowledge Deficit Goal: Patient/patient client relations representative demonstrates understanding of disease process, [...] Progressing Note: Evaluation of progress towards goal: [facility] 07-18-2024 Plan of care note Problem: [...] at the bedside 7. Instruct patient/ patient client relations representative about use of safety devices 8. Include patient/ patient client relations representative in decisions related to safety Outcome: Progressing Note: Evaluation of progress towards goal: patient is injury free at this time. Problem: Knowledge Deficit Goal: Patient/patient client relations representative demonstrates understanding of disease process, [...] Score of =/> 25 or indicated by [facility] Assessment Goal: Patient should be free from fall Description: Interventions: 1. Lawson to environment 2. Hourly rounds addressing the [...] non-skid footwear 11. Teach patient and patient client relations representative to maintain environment for safety [...] (cane, walker) within reach 19. Request patient client relations representative bring adaptive equipment/mobility aids from home or obtain and provide as needed 20. Consult pharmacy regarding effects of med's affecting mobility, cognition, and alternatives 21. Obtain physician order for PT if risk factors associated with mobility are present 22. Obtain physician order for OT as appropriate 23. Utilize diversional activities 24. Educate patient and patient client relations representative how to maintain a safe environment during visitation times (notify nurse prior to leaving bedside) 25. Consider appropriateness of medical or non-medical radiation therapist 26. Set up voiding schedule as appropriate (every 2 hours) Outcome: Progressing Note: Evaluation of progress towards goal: Patient is free from falls at this time. [facility] 07-18[facility] Progress note Formatting of t his note might be different from the original. DISCHARGE PLANNING NOTE Referral sent to [facility] (P# [phone] ; F# [phone]) [facility] 07-18-2024 Telephone encounter Note Patient mailbox is full unable to leave message [facility] 07-18-2024 Progress note Formatting of t his note is different from the original. Images from the original note were not included. DISCHARGE PLANNING NOTE Discussed patient today during rounds. Patient's requested updates be sent to [facility]. Tasked [facility] to send. Leadership team aware as well as floor nurse. Barriers- acceptance, auth. Services Requested: Services Requested Patient expects to be discharged to:: home vs snf Patient Goals: Goals: Goals (pt-stated) Evaluation of progress towards goal: TBD-pending PT/OT eval - NANCY PARRISH 07/18/24 10:30 AM Still awaiting response from [facility] if they can accept patient. Leadership team aware. Floor mgr has spoken with family to update them. - NANCY PARRISH 07/18/24 2:50 PM [facility] 07-18-2024 Telephone encounter Note Patient returned your call and can be reached at: Call patient at: on cell [phone] (home) [phone] (cell) [facility] 07-18-2024 Telephone encounter Note -LVMTCB We are unable to assist in this matter. Pt last seen 04/2022 [facility] 07-18-2024 Miscellaneous Notes -LVMTCB We are unable to assist in this matter. Pt last seen 04/2022 Pt fell and is in [facility] and is requesting help with getting pt transferred to a [facility] facility Please call pts [phone] documented in this encounter [facility] 07-17-2024 Plan of care note Problem: Safety [...] at the bedside 7. Instruct patient/ patient client relations representative about use of safety devices 8. Include patient/ patient client relations representative in decisions related to safety [...] be free from fall Description: Interventions: 1. Lawson to environment 2. Hourly rounds addressing the [...] non-skid footwear 11. Teach patient and patient client relations representative to maintain environment for safety [...] (cane, walker) within reach 19. Request patient client relations representative bring adaptive equipment/mobility aids from home or obtain and provide as needed 20. Consult pharmacy regarding effects of med's affecting mobility, cognition, and alternatives 21. Obtain physician order for PT if risk factors associated with mobility are present 22. Obtain physician order for OT as appropriate 23. Utilize diversional activities 24. Educate patient and patient client relations representative how to maintain a safe environment during visitation times (notify nurse prior to leaving bedside) 25. Consider appropriateness of medical or non-medical radiation therapist 26. Set up voiding schedule as appropriate (every 2 hours) Outcome: Progressing Note: Evaluation of progress towards goal: Patient will remain free from falls. [facility] 07-17-2024 Progress note Formatting of t his note might be different from the original. DISCHARGE PLANNING NOTE Referral sent to. [facility] (P# [phone] ; F# [phone], ) [facility] 07-17-2024 Progress note Formatting of t [...] Rothman Equipment: gait belt and chair alarm Telemetry/[place]: Yes Oxygen Used: room air Other: fall [...] filed on 07/17/24 1443 by Vinod Vaca, HEADING AND PRIMING OPERATOR Evaluation of progress towards goal: Problem: Stairs/Curb Dates: Start: 07/13/24 Disciplines: PT Goal: Patient will perform stairs/curb with Modified [place] Dates: Start: 07/13/24 Expected End: 07/27/24 Description: [...] problems. Principal Problem: Dementia with behavioral disturbance ([facility]) Active Problems: Altered mental status Status post colostomy, follow-up exam ([facility]) Cosigned by Briana Nuno PT at 07/18/2024 7:18 AM EST Associated attestation - Briana Nuno PT - 07/18/2024 7:18 AM EST I have reviewed and agree with this note and education documentation for this visit. [facility] 07-17-2024 Progress note Formatting of t his [...] Rothman Equipment: gait belt and chair alarm Telemetry/[place]: Yes Oxygen Used: room air Other: fall [...] Date/Time User Outcome 07/17/24 1439 Yoanna Han-Mahoney, BURR BENCH HAND/L Progressing Problem: Toilet Transfers Dates: Start: 07/13/24 Disciplines: OT Goal: Patient will perform toilet transfers Independently Dates: Start: 07/13/24 Expected End: 08/13/24 Description: Goal Description: Disciplines: OT Outcomes Date/Time User Outcome 07/17/24 1439 Yoanna Han-Mahoney, BURR BENCH HAND/L Progressing Problem: Toileting Dates: Start: 07/13/24 Disciplines: OT Goal: Patient will perform toileting Independently Dates: Start: 07/13/24 Expected End: 08/13/24 Description: Goal Description: Disciplines: OT Outcomes Date/Time User Outcome 07/17/24 1439 Yoanna Han-Mahoney, BURR BENCH HAND/L Progressing Problem: Transfers Dates: Start: 07/13/24 Disciplines: OT Goal: Patient will perform transfers Independently Dates: Start: 07/13/24 Expected End: 08/13/24 Description: Goal Description: Disciplines: OT Outcomes Date/Time User Outcome 07/17/24 1439 EN Hogan Progressing Occupational Therapy Care Plan (Resolved) There are no resolved problems. Principal Problem: Dementia with behavioral disturbance ([facility]) Active Problems: Altered mental status Status post colostomy, follow-up exam ([facility]) Cosigned by MAYNOR Navarro/Jerome at 07/17/2024 3:03 PM EST Associated attestation - Lucie Olivarez OTR/Jerome - 07/17/2024 3:03 PM EST I have reviewed and agree with this note and education documentation for this visit. [facility] 07-17-2024 Telephone encounter Note Pt fell and is in [facility] and is requesting help with getting pt transferred to a [facility] facility Please call pts [phone] [facility] 07-17-2024 Plan of care note Problem: Safety [...] at the bedside 7. Instruct patient/ patient client relations representative about use of safety devices 8. Include patient/ patient client relations representative in decisions related to safety Outcome: Progressing Note: Evaluation of progress towards goal: Patient is injury free at this time. Problem: Knowledge Deficit Goal: Patient/patient client relations representative demonstrates understanding of disease process, [...] Score of =/> 25 or indicated by [facility] Assessment Goal: Patient should be free from fall Description: Interventions: 1. Lawson to environment 2. Hourly rounds addressing the [...] non-skid footwear 11. Teach patient and patient client relations representative to maintain environment for safety [...] (cane, walker) within reach 19. Request patient client relations representative bring adaptive equipment/mobility aids from home or obtain and provide as needed 20. Consult pharmacy regarding effects of med's affecting mobility, cognition, and alternatives 21. Obtain physician order for PT if risk factors associated with mobility are present 22. Obtain physician order for OT as appropriate 23. Utilize diversional activities 24. Educate patient and patient client relations representative how to maintain a safe environment during visitation times (notify nurse prior to leaving bedside) 25. Consider appropriateness of medical or non-medical radiation therapist 26. Set up voiding schedule as appropriate (every 2 hours) Outcome: Progressing Note: Evaluation of progress towards goal: Patient is free from falls at this time. [facility] 07-17-2024 Progress note Formatting of t his note might be different from the original. DISCHARGE PLANNING NOTE fax referral to [facility] to [phone] shannan Shah [facility] 07-17-2024 Progress note Formatting of t his note is different from the original. Images from the original note were not included. DISCHARGE PLANNING NOTE Discussed patient today during rounds. Plan- IPR/TBI center. Barriers- acceptance, auth. This typewriters functional tester called both reviewing facilities and left for admissions to see if they can accept. Asked them to call this typewriters functional tester back. Floor nurse and leadership team aware. Services Requested: Services Requested Patient expects to be discharged to:: home vs snf Patient Goals: Goals: Goals (pt-stated) Evaluation of progress towards goal: TBD-pending PT/OT eval - NANCY PARRISH 07/17/24 9:42 AM At this time we do not have an accepting TBI/IPR facility. This typewriters functional tester and trading floor operator attempted to speak with patient's but she is not in the room. Also tried to call her but it went right to and her box is full. - NANCY PARRISH 07/17/24 1:43 PM [facility] called this typewriters functional tester since they don't respond in [facility] and they can not accept patient. This typewriters functional tester and trading floor operator spoke with patient's and patient's sister that [...] nurse. - NANCY PARRISH 07/17/24 2:45 PM [facility] 07-17-2024 Plan of care note Problem: Safety [...] at the bedside 7. Instruct patient/ patient client relations representative about use of safety devices 8. Include patient/ patient client relations representative in decisions related to safety Outcome: Progressing Note: Evaluation of progress towards goal: Patient remains injury and fall free. Safety precautions in place: call light within reach, bed in lowest position, personal belongings within reach, oriented to environment, and non-slip footwear on. Problem: Knowledge Deficit Goal: Patient/patient client relations representative demonstrates understanding of disease process, [...] Score of =/> 25 or indicated by [facility] Assessment Goal: Patient should be free from fall Description: Interventions: 1. Lawson to environment 2. Hourly rounds addressing the [...] non-skid footwear 11. Teach patient and patient client relations representative to maintain environment for safety [...] (cane, walker) within reach 19. Request patient client relations representative bring adaptive equipment/mobility aids from home or obtain and provide as needed 20. Consult pharmacy regarding effects of med's affecting mobility, cognition, and alternatives 21. Obtain physician order for PT if risk factors associated with mobility are present 22. Obtain physician order for OT as appropriate 23. Utilize diversional activities 24. Educate patient and patient client relations representative how to maintain a safe environment during visitation times (notify nurse prior to leaving bedside) 25. Consider appropriateness of medical or non-medical radiation therapist 26. Set up voiding schedule as appropriate (every 2 hours) Outcome: Progressing Note: Evaluation of progress towards goal: Patient remains injury and fall free. Safety precautions in place: call light within reach, bed in lowest position, personal belongings within reach, oriented to environment, and non-slip footwear on. [facility] 07-16-2024 Progress note Formatting of t his [...] Problem: Auditory Comprehension Dates: Start: 07/12/24 Disciplines: MICROBIOLOGY INSTRUCTOR Goal: LTG: Patient will comprehend communication related to basic medical and social needs and utilize compensatory strategies to maintain safety in a functional living environment Dates: Start: 07/12/24 Expected End: 08/12/24 Disciplines: MICROBIOLOGY INSTRUCTOR Goal: STG: Patient will answer complex yes/no questions with 90% accuracy with minimal cueing Dates: Start: 07/12/24 Expected End: 08/12/24 Disciplines: MICROBIOLOGY INSTRUCTOR Outcomes Date/Time User Outcome 07/16/24 152Lauro Conchita Devi [facility] Progress[facility] Goal: STG: Patient will complete 1-3 step commands with 90% accuracy with minimal cueing Dates: Start: 07/12/24 Expected End: 08/12/24 Disciplines: MICROBIOLOGY INSTRUCTOR Outcomes Date/Time User Outcome 07/16/24 Jenn Conchita Devi [facility]ley[facility]CROBIOLOGY INSTRUCTOR Progressing Goal: STG: Patient will complete simple, phrase level auditory comprehension tasks with 90% accuracy with minimal cueing Dates: Start: 07/12/24 Expected End: 08/12/24 Disciplines: MICROBIOLOGY INSTRUCTOR Problem: Cognitive Linguistic Dates: Start: 07/12/24 Disciplines: MICROBIOLOGY INSTRUCTOR Goal: LTG: Patient will display functional cognitive-linguistic skills to demonstrate appropriate communication and safety within daily activities in a functional living environment Dates: Start: 07/12/24 Expected End: 08/12/24 Disciplines: MICROBIOLOGY INSTRUCTOR Goal: STG: Patient will demonstrate sustained attention by maintaining focus during a task for 10 minutes with minimal assistance Dates: Start: 07/12/24 Expected End: 08/12/24 Disciplines: MICROBIOLOGY INSTRUCTOR Outcomes Date/Time User Outcome 07/16/24 152Lauro Conchita Devi [facility] Progressing Goal: STG: Patient will be appropriately oriented to person, place, time and situation with 90% accuracy with minimal cueing Dates: Start: 07/12/24 Expected End: 08/12/24 Disciplines: MICROBIOLOGY INSTRUCTOR Goal: STG: Patient will recall information discussed during therapy session via retelling/answering questions with 90% accuracy with minimal cueing Dates: Start: 07/12/24 Expected End: 08/12/24 Disciplines: MICROBIOLOGY INSTRUCTOR Problem: High Level Language Dates: Start: 07/12/24 Disciplines: MICROBIOLOGY INSTRUCTOR Goal: LTG: Patient will demonstrate use of self-awareness, goal setting, planning, initiation, self-monitoring and problem solving during daily activities to improve safety and awareness in a functional living environment Dates: Start: 07/12/24 Expected End: 08/12/24 Disciplines: MICROBIOLOGY INSTRUCTOR Goal: STG: Patient will sequence 4-6 steps to a task (verbal, written, pictures) with 90% accuracy with minimal cueing Dates: Start: 07/12/24 Expected End: 08/12/24 Disciplines: MICROBIOLOGY INSTRUCTOR Goal: STG: Patient will provide 3 appropriate solutions to problems of daily living with 90% accuracy with minimal cueing Dates: Start: 07/12/24 Expected End: 08/12/24 Disciplines: MICROBIOLOGY INSTRUCTOR Goal: STG: Patient will demonstrate functional problem solving and safety awareness with 90% accuracy in daily living tasks in order to increase safe interactions with environment and decrease assistance from caregivers Dates: Start: 07/12/24 Expected End: 08/12/24 Disciplines: MICROBIOLOGY INSTRUCTOR Problem: Verbal Expression Dates: Start: 07/12/24 Disciplines: MICROBIOLOGY INSTRUCTOR Goal: LTG: Patient will utilize compensatory strategies to communicate wants and needs effectively to different conversational partners, maintain safety and participate socially in a functional living environment Dates: Start: 07/12/24 Expected End: 08/12/24 Disciplines: MICROBIOLOGY INSTRUCTOR Goal: STG: Patient will respond to simple/complex open ended questions during activities of daily living with 90% accuracy with minimal cueing Dates: Start: 07/12/24 Expected End: 08/12/24 Disciplines: MICROBIOLOGY INSTRUCTOR Goal: STG: Patient will maintain topic of conversation to decrease tangential speech with 90% accuracy with minimal cueing Dates: Start: 07/12/24 Expected End: 08/12/24 Disciplines: MICROBIOLOGY INSTRUCTOR Outcomes Date/Time User Outcome 07/16/24 1520 Conchita Devi CCC-MICROBIOLOGY INSTRUCTOR Progressing Speech Therapy Care Plan (Resolved) There are no resolved problems. Principal Problem: Dementia with behavioral disturbance ([facility]) Active Problems: Altered mental status Status post colostomy, follow-up exam ([facility]) [facility] 07-16-2024 Progress note Formatting of t his note might be different from the original. DISCHARGE PLANNING NOTE [facility] to [facility] P#[phone]; F#[phone] sent via secure fax to [phone] [employer] 07-16-2024 Plan of care note Problem: Safety [...] at the bedside 7. Instruct patient/ patient client relations representative about use of safety devices 8. Include patient/ patient client relations representative in decisions related to safety Outcome: Progressing Note: Evaluation of progress towards goal: pain will be adequally controlled to allow for rest and adl's Problem: Knowledge Deficit Goal: Patient/patient client relations representative demonstrates understanding of disease process, [...] Moderate - High Risk Fall Score Description: [place] Fall Score of =/> 25 or indicated by [facility] Assessment Goal: Patient should be free from fall Description: Interventions: 1. Lawson to environment 2. Hourly rounds addressing the [...] non-skid footwear 11. Teach patient and patient client relations representative to maintain environment for safety [...] (cane, walker) within reach 19. Request patient client relations representative bring adaptive equipment/mobility aids from home or obtain and provide as needed 20. Consult pharmacy regarding effects of med's affecting mobility, cognition, and alternatives 21. Obtain physician order for PT if risk factors associated with mobility are present 22. Obtain physician order for OT as appropriate 23. Utilize diversional activities 24. Educate patient and patient client relations representative how to maintain a safe environment during visitation times (notify nurse prior to leaving bedside) 25. Consider appropriateness of medical or non-medical radiation therapist 26. Set up voiding schedule as appropriate (every 2 hours) Outcome: Progressing Note: Evaluation of progress towards goal: fall bundle [facility] 07-16-2024 Progress note Formatting of t his note might be different from the original. DISCHARGE PLANNING NOTE Clinical updates sent to Referrals sent to [facility] (P# [phone] ; F# [phone]) and to [facility] and to [facility] 07-16-2024 Progress note Formatting of t his note might be different from the original. DISCHARGE PLANNING NOTE Referral sent to. [facility] [place] Via secure fax to [phone]. This is theor fax per phone call to facility. P#[phone]. Provider not in [employer]. [facility] 07-16-2024 Progress note Formatting of t his note might be different from the original. DISCHARGE PLANNING NOTE Discharge plan- TBD waiting to hear from TBI/IP[facility] who can accept out of the reviewing facilities. [facility] called this typewriters functional tester and will call his to discuss. If they are able to accept she would owe private pay for room and board and money is due up front. Updated leadership team and floor nurse. - NANCY PARRISH 07/16/24 8:50 AM Discussed patient today during rounds. Called [facility] and left a VM for admissions to see if they can accept. Awaiting responses from the other facilities to respond. Barriers- acceptance, auth. - NANCY PARRISH 07/16/24 10:58 AM Called admissions at [facility] and [facility] and left VM asking them if they can accept and to call this typewriters functional tester back. Left callback #. - NANCY PARRISH 07/16/24 11:05 AM Still awaiting responses from all reviewing IPR this time. Leadership aware. Called [facility] and spoke with admissions and they will review. Also called [facility] and left another VM. Both in [place] are still reviewing at this time. - NANCY PARRISH 07/16/24 1:39 PM Spoke with patient and to update them that at this time we are awaiting responses from 3 facilities. Leadership aware. - NANCY PARRISH 07/16/24 3:45 PM [facility] 07-16-2024 Plan of care note Problem: Safety [...] at the bedside 7. Instruct patient/ patient client relations representative about use of safety devices 8. Include patient/ patient client relations representative in decisions related to safety Outcome: Progressing Note: Evaluation of progress towards goal: Patient remains injury and fall free. Safety precautions in place: call light within reach, bed in lowest position, personal belongings within reach, oriented to environment, and non-slip footwear on. Problem: Knowledge Deficit Goal: Patient/patient client relations representative demonstrates understanding of disease process, [...] Collaborate with ancillary departments 14. Include patient/patient client relations representative in decisions related to anxiety Outcome: Progressing Note: Evaluation of progress towards goal: Patient's anxiety appears to be at manageable level. Problem: Moderate - High Risk Fall Score Description: [place] Fall Score of =/> 25 or indicated by [facility] Assessment Goal: Patient should be free from fall Description: Interventions: 1. Lawson to environment 2. Hourly rounds addressing the [...] non-skid footwear 11. Teach patient and patient client relations representative to maintain environment for safety [...] (cane, walker) within reach 19. Request patient client relations representative bring adaptive equipment/mobility aids from home or obtain and provide as needed 20. Consult pharmacy regarding effects of med's affecting mobility, cognition, and alternatives 21. Obtain physician order for PT if risk factors associated with mobility are present 22. Obtain physician order for OT as appropriate 23. Utilize diversional activities 24. Educate patient and patient client relations representative how to maintain a safe environment during visitation times (notify nurse prior to leaving bedside) 25. Consider appropriateness of medical or non-medical radiation therapist 26. Set up voiding schedule as appropriate (every 2 hours) Outcome: Progressing Note: Evaluation of progress towards goal: Patient remains injury and fall free. Safety precautions in place: call light within reach, bed in lowest position, personal belongings within reach, oriented to environment, and non-slip footwear on. [facility] 07-15-2024 Plan of care note Problem: [...] at the bedside 7. Instruct patient/ patient client relations representative about use of safety devices 8. Include patient/ patient client relations representative in decisions related to safety [...] be free from fall Description: Interventions: 1. Lawson to environment 2. Hourly rounds addressing the [...] non-skid footwear 11. Teach patient and patient client relations representative to maintain environment for safety [...] (cane, walker) within reach 19. Request patient client relations representative bring adaptive equipment/mobility aids from home or obtain and provide as needed 20. Consult pharmacy regarding effects of med's affecting mobility, cognition, and alternatives 21. Obtain physician order for PT if risk factors associated with mobility are present 22. Obtain physician order for OT as appropriate 23. Utilize diversional activities 24. Educate patient and patient client relations representative how to maintain a safe environment during visitation times (notify nurse prior to leaving bedside) 25. Consider appropriateness of medical or non-medical radiation therapist 26. Set up voiding schedule as appropriate (every 2 hours) Outcome: Progressing Note: Evaluation of progress towards goal: Pt is free from falls. [facility] 07-15-2024 Plan of care note Problem: [...] at the bedside 7. Instruct patient/ patient client relations representative about use of safety devices 8. Include patient/ patient client relations representative in decisions related to safety Outcome: Progressing Note: Evaluation of progress towards goal: Proper identifiers used with patient care and medication administration. Remains free of injury during shift Problem: Knowledge Deficit Goal: Patient/patient client relations representative demonstrates understanding of disease process, [...] Collaborate with ancillary departments 14. Include patient/patient client relations representative in decisions related to anxiety Outcome: Progressing Note: Evaluation of progress towards goal: Patient verbalizes a tolerable anxiety level and remains free of signs and symptoms of anxiety. Will continue to explain treatment plan and monitor for changes in anxiety levels. Problem: Moderate - High Risk Fall Score Description: [place] Fall Score of =/> 25 or indicated by [facility] Assessment Goal: Patient should be free from fall Description: Interventions: 1. Lawson to environment 2. Hourly rounds addressing the [...] non-skid footwear 11. Teach patient and patient client relations representative to maintain environment for safety [...] (cane, walker) within reach 19. Request patient client relations representative bring adaptive equipment/mobility aids from home or obtain and provide as needed 20. Consult pharmacy regarding effects of med's affecting mobility, cognition, and alternatives 21. Obtain physician order for PT if risk factors associated with mobility are present 22. Obtain physician order for OT as appropriate 23. Utilize diversional activities 24. Educate patient and patient client relations representative how to maintain a safe environment during visitation times (notify nurse prior to leaving bedside) 25. Consider appropriateness of medical or non-medical radiation therapist 26. Set up voiding schedule as appropriate (every 2 hours) Outcome: Progressing Note: Evaluation of progress towards goal: Call light within reach. Remains free of fall or injury. Environment free of clutter. [facility] 2024 Plan of care note Problem: Safety [...] at the bedside 7. Instruct patient/ patient client relations representative about use of safety devices 8. Include patient/ patient client relations representative in decisions related to safety Outcome: Progressing Note: Evaluation of progress towards goal: pain will be controlled to allow for rest and adl's Problem: Knowledge Deficit Goal: Patient/patient client relations representative demonstrates understanding of disease process, [...] Collaborate with ancillary departments 14. Include patient/patient client relations representative in decisions related to anxiety Outcome: Progressing Note: Evaluation of progress towards goal: listen and reassuring Problem: Moderate - High Risk Fall Score Description: [place] Fall Score of =/> 25 or indicated by [facility] Assessment Goal: Patient should be free from fall Description: Interventions: 1. Lawson to environment 2. Hourly rounds addressing the [...] non-skid footwear 11. Teach patient and patient client relations representative to maintain environment for safety [...] (cane, walker) within reach 19. Request patient client relations representative bring adaptive equipment/mobility aids from home or obtain and provide as needed 20. Consult pharmacy regarding effects of med's affecting mobility, cognition, and alternatives 21. Obtain physician order for PT if risk factors associated with mobility are present 22. Obtain physician order for OT as appropriate 23. Utilize diversional activities 24. Educate patient and patient client relations representative how to maintain a safe environment during visitation times (notify nurse prior to leaving bedside) 25. Consider appropriateness of medical or non-medical radiation therapist 26. Set up voiding schedule as appropriate (every 2 hours) Outcome: Progressing Note: Evaluation of progress towards goal: fallbundle [facility] 2024 Progress note Formatting of t his note might be different from the original. DISCHARGE PLANNING NOTE Referrals sent to [facility] (P# [phone] ; F# [phone]) and to [facility] and to [facility] and to [facility] p#: [phone] f#: [phone] [facility] 2024 Progress note Formatting of t his note might be different from the original. DISCHARGE PLANNING NOTE Follow-up Discharge Planning Progress Note Per RN during discharge transition rounds, barriers to discharge are: Accepting acute inpatient rehabilitation center. Discharge Plan: Health Services Administrator followed up with patient, spouse and patient sister at bedside. Updated, [facility], not accepting, not in network with patient [...] Discussed lower levels of care such as Residential Facility and Home care. Patient spouse and sister verbalized understanding. Choices received. [facility] tasked to send referrals. Attempted to contact Jaciel Venegas, admission office closed on weekend. Care Navigation will continue to follow for any discharge needs. - Shweta Delgado RN 07/14/24 1:22 PM [facility] 07-13-2024 Plan of care note Problem: Safety [...] at the bedside 7. Instruct patient/ patient client relations representative about use of safety devices 8. Include patient/ patient client relations representative in decisions related to safety Outcome: Progressing Note: Evaluation of progress towards goal: Proper identifiers used with patient care and medication administration. Remains free of injury during shift Problem: Knowledge Deficit Goal: Patient/patient client relations representative demonstrates understanding of disease process, [...] Collaborate with ancillary departments 14. Include patient/patient client relations representative in decisions related to anxiety Outcome: Progressing Note: Evaluation of progress towards goal: Patient remains free of signs and symptoms of anxiety. Will continue to explain treatment plan and monitor for changes in anxiety levels. Problem: Moderate - High Risk Fall Score Description: [place] Fall Score of =/> 25 or indicated by [facility] Assessment Goal: Patient should be free from fall Description: Interventions: 1. Lawson to environment 2. Hourly rounds addressing the [...] non-skid footwear 11. Teach patient and patient client relations representative to maintain environment for safety [...] (cane, walker) within reach 19. Request patient client relations representative bring adaptive equipment/mobility aids from home or obtain and provide as needed 20. Consult pharmacy regarding effects of med's affecting mobility, cognition, and alternatives 21. Obtain physician order for PT if risk factors associated with mobility are present 22. Obtain physician order for OT as appropriate 23. Utilize diversional activities 24. Educate patient and patient client relations representative how to maintain a safe environment during visitation times (notify nurse prior to leaving bedside) 25. Consider appropriateness of medical or non-medical radiation therapist 26. Set up voiding schedule as appropriate (every 2 hours) Outcome: Progressing Note: Evaluation of progress towards goal: Call light within reach. Remains free of fall or injury. Environment free of clutter. Problem: Safety - Medical Restraint Goal: Remains free of injury from restraints (Restraint for Interference with Personal Vehicle Advisor) Description: INTERVENTIONS: 1. Determine that other, less [...] Free from restraint(s) (Restraint for Interference with Personal Vehicle Advisor) Description: INTERVENTIONS: 1. ONCE/SHIFT or MINIMUM Q12H: [...] safety; individualizes the safety outcome Outcome: Completed [facility] 07-13-2024 Progress note Formatting of t his note might be different from the original. Per Lesia COVARRUBIAS CN patient's and sister were very upset that [facility] did not accept patient. They declined to offer any other choices for facilities to her at this time. Lesia encouraged them to allow her to make referrals to some TBI facilities at [facility] and in [place] but at this time they are angry that [facility] did not accept patient. Health Services Administrator will request SW follow up with them in the morning to obtain choices to continue developing a transition of care plan. [facility] 07-13-2024 Progress note Formatting of t his note might be different from the original. DISCHARGE PLANNING NOTE Referral sent to [facility] P#[phone]; F#[phone]); [facility] P# [phone] [calling report];/[facility] (P# [calling report]; F# ) [facility] 07-13-2024 Progress note Formatting of t his note might be different from the original. DISCHARGE PLANNING NOTE Per RN during discharge transition rounds, barriers to discharge are: Telesitter, PMR re-eval, Seroquel dose adjustment. Discharge Plan: [facility] for TBI rehab. PT/OT recommended [facility]. CN met with and sister Ewa. wants a referral sent [facility]. CN discussed discharge and making referrals to other TBI/ IPR rehabs in the state, and sister stated they are putting all their zak in [facility] being able to accept the patient. Education Sales Consultant will continue to follow for any discharge needs. - Lesia Caba RN 07/13/24 12:18 PM Addendum: [facility] [employer] insurance. gave CN two more choices : [facility] and [facility] rehab. [facility] tasked to send referrals. and sister are calling insurance to ask about a one time contract to [facility]. Ethel , [facility] rep, stopped in to talk to and sister. - Lesia Caba RN 07/13/24 2:10 PM Addendum: Patient's and sister asked CN to listen and talk to insurance agency sales manager regarding a one time approval for the [facility]: [facility]. Conservation Of Resources Commissioner Xiomy with [employer] stated attending or managing physician needs to document patient's health status and progression, information on why the patient needs to go this specific facility for rehab, include diagnosis codes and services codes. Fax: Prior Auth Request to [phone] attn: Prior Auth Request at [employer]. CN sent pic chat to Dr. Nichol [...] - Lesia Caba RN 07/13/24 3:51 PM [facility] Progress note Formatting of t his note might be different from the original. DISCHARGE PLANNING NOTE Referral to [facility] (P# ; F# ) [facility] 07-13-2024 Progress note Formatting of t his [...] 11/24/2019 Performed by Skyler Bowen MD at [facility] [place] 3YEARS AGO COLOSTOMY CLOSURE Therapy Plan Need [...] early mobility guidelines. Equipment: gait belt, telemetry Telemetry/[place]: Yes Oxygen Used: room air Other: fall [...] and pants. Patient was able to static maintenance fitter front of toilet with contact guard. Patient was unable to void due to trouble with processing, safety and judgement. Home Management - IADL Other: patient has trouble executing tasks. patient was able to ambulate into bathroom with contact guard. patient required min assist to doff underware and pants. Patient was able to static maintenance fitter front of toilet with contact guard. Patient [...] problems. Principal Problem: Dementia with behavioral disturbance ([facility]) Active Problems: Altered mental status Status post colostomy, follow-up exam ([facility]) [facility] 07-13-2024 Progress note Formatting of t [...] from admission 07/06 as a transfer from [facility] for neurological work up. Patient diagnosed with early onset dementia 2022, per spouse report after usp and med changes cognitive status had improved and stabilized prior to fall in May 2024. 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 Pt discharged to inpatient treatment facility and returned to [facility] for scheduled MRI. 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 Principal Problem: Dementia with behavioral disturbance ([facility]) Active Problems: Altered mental status Status post colostomy, follow-up exam ([facility]) [facility] 07-12-2024 Plan of care note Problem: [...] at the bedside 7. Instruct patient/ patient client relations representative about use of safety devices 8. Include patient/ patient client relations representative in decisions related to safety Outcome: Progressing Note: Evaluation of progress towards goal: Patient remains injury and fall free. Safety precautions in place: call light within reach, bed in lowest position, personal belongings within reach, oriented to environment, and non-slip footwear on. Problem: Knowledge Deficit Goal: Patient/patient client relations representative demonstrates understanding of disease process, [...] Collaborate with ancillary departments 14. Include patient/patient client relations representative in decisions related to anxiety Outcome: Progressing Note: Evaluation of progress towards goal: Patient's has at bedside to help with spells of anxiety. Problem: Moderate - High Risk Fall Score Description: Gallegos Fall Score of =/> 25 or indicated by [facility] Assessment Goal: Patient should be free from fall Description: Interventions: 1. Lawson to environment 2. Hourly rounds addressing the [...] non-skid footwear 11. Teach patient and patient client relations representative to maintain environment for safety [...] (cane, walker) within reach 19. Request patient client relations representative bring adaptive equipment/mobility aids from home or obtain and provide as needed 20. Consult pharmacy regarding effects of med's affecting mobility, cognition, and alternatives 21. Obtain physician order for PT if risk factors associated with mobility are present 22. Obtain physician order for OT as appropriate 23. Utilize diversional activities 24. Educate patient and patient client relations representative how to maintain a safe environment during visitation times (notify nurse prior to leaving bedside) 25. Consider appropriateness of medical or non-medical radiation therapist 26. Set up voiding schedule as appropriate (every 2 hours) Outcome: Progressing Note: Evaluation of progress towards goal: Patient remains injury and fall free. Safety precautions in place: call light within reach, bed in lowest position, personal belongings within reach, oriented to environment, and non-slip footwear on. Problem: Safety - Medical Restraint Goal: Remains free of injury from restraints (Restraint for Interference with Personal Vehicle Advisor) Description: INTERVENTIONS: 1. Determine that other, less [...] Free from restraint(s) (Restraint for Interference with Personal Vehicle Advisor) Description: INTERVENTIONS: 1. ONCE/SHIFT or MINIMUM Q12H: [...] nutrition and hydration, hygiene, ROM, elimination needs [facility] 07-12-2024 Progress note Formatting of t his note might be different from the original. DISCHARGE PLANNING NOTE Per RN during discharge transition rounds, barriers to discharge are: PMR consult today, 2 point restraints, telesitter Discharge Plan: TBD. PMR is requesting PT/OT notes. Will wait for therapy input. not available this afternoon. CN escalated this case to CN leadership. Education Sales Consultant will continue to follow for any discharge needs. - Lesia Caba RN 07/12/24 3:24 PM [facility] 07-12-2024 Plan of care note Problem: [...] at the bedside 7. Instruct patient/ patient client relations representative about use of safety devices 8. Include patient/ patient client relations representative in decisions related to safety Outcome: Progressing Note: Evaluation of progress towards goal: Patient remains injury free at present time. Safe environment provided and maintained. Medications administered using 5 rights. Problem: Knowledge Deficit Goal: Patient/patient client relations representative demonstrates understanding of disease process, [...] Collaborate with ancillary departments 14. Include patient/patient client relations representative in decisions related to anxiety Outcome: Progressing Note: Evaluation of progress towards goal: Patient has family at bedside assisting with anxiety. Problem: Safety - Medical Restraint Goal: Remains free of injury from restraints (Restraint for Interference with Personal Vehicle Advisor) Description: INTERVENTIONS: 1. Determine that other, less [...] Free from restraint(s) (Restraint for Interference with Personal Vehicle Advisor) Description: INTERVENTIONS: 1. ONCE/SHIFT or MINIMUM Q12H: [...] assess q2 restraints, qshift assessed for necessity. [facility] 07-12-2024 Progress note Formatting of t [...] continue to follow along. Prognosis Services: Skilled MICROBIOLOGY INSTRUCTOR services to address the above deficits Prognosis/Potential: [...] Plan Speech Therapy Care Plan (Active) Template: [facility] Speech Problem: Auditory Comprehension Dates: Start: 07/12/24 Disciplines: MICROBIOLOGY INSTRUCTOR Goal: LTG: Patient will comprehend communication related to basic medical and social needs and utilize compensatory strategies to maintain safety in a functional living environment Dates: Start: 07/12/24 Expected End: 08/12/24 Disciplines: MICROBIOLOGY INSTRUCTOR Goal: STG: Patient will answer complex yes/no questions with 90% accuracy with minimal cueing Dates: Start: 07/12/24 Expected End: 08/12/24 Disciplines: MICROBIOLOGY INSTRUCTOR Goal: STG: Patient will complete 1-3 step commands with 90% accuracy with minimal cueing Dates: Start: 07/12/24 Expected End: 08/12/24 Disciplines: MICROBIOLOGY INSTRUCTOR Goal: STG: Patient will complete simple, phrase level auditory comprehension tasks with 90% accuracy with minimal cueing Dates: Start: 07/12/24 Expected End: 08/12/24 Disciplines: MICROBIOLOGY INSTRUCTOR Problem: Cognitive Linguistic Dates: Start: 07/12/24 Disciplines: MICROBIOLOGY INSTRUCTOR Goal: LTG: Patient will display functional cognitive-linguistic skills to demonstrate appropriate communication and safety within daily activities in a functional living environment Dates: Start: 07/12/24 Expected End: 08/12/24 Disciplines: MICROBIOLOGY INSTRUCTOR Goal: STG: Patient will demonstrate sustained attention by maintaining focus during a task for 10 minutes with minimal assistance Dates: Start: 07/12/24 Expected End: 08/12/24 Disciplines: MICROBIOLOGY INSTRUCTOR Goal: STG: Patient will be appropriately oriented to person, place, time and situation with 90% accuracy with minimal cueing Dates: Start: 07/12/24 Expected End: 08/12/24 Disciplines: MICROBIOLOGY INSTRUCTOR Goal: STG: Patient will recall information discussed during therapy session via retelling/answering questions with 90% accuracy with minimal cueing Dates: Start: 07/12/24 Expected End: 08/12/24 Disciplines: MICROBIOLOGY INSTRUCTOR Problem: High Level Language Dates: Start: 07/12/24 Disciplines: MICROBIOLOGY INSTRUCTOR Goal: LTG: Patient will demonstrate use of self-awareness, goal setting, planning, initiation, self-monitoring and problem solving during daily activities to improve safety and awareness in a functional living environment Dates: Start: 07/12/24 Expected End: 08/12/24 Disciplines: MICROBIOLOGY INSTRUCTOR Goal: STG: Patient will sequence 4-6 steps to a task (verbal, written, pictures) with 90% accuracy with minimal cueing Dates: Start: 07/12/24 Expected End: 08/12/24 Disciplines: MICROBIOLOGY INSTRUCTOR Goal: STG: Patient will provide 3 appropriate solutions to problems of daily living with 90% accuracy with minimal cueing Dates: Start: 07/12/24 Expected End: 08/12/24 Disciplines: MICROBIOLOGY INSTRUCTOR Goal: STG: Patient will demonstrate functional problem solving and safety awareness with 90% accuracy in daily living tasks in order to increase safe interactions with environment and decrease assistance from caregivers Dates: Start: 07/12/24 Expected End: 08/12/24 Disciplines: MICROBIOLOGY INSTRUCTOR Problem: Verbal Expression Dates: Start: 07/12/24 Disciplines: MICROBIOLOGY INSTRUCTOR Goal: LTG: Patient will utilize compensatory strategies to communicate wants and needs effectively to different conversational partners, maintain safety and participate socially in a functional living environment Dates: Start: 07/12/24 Expected End: 08/12/24 Disciplines: MICROBIOLOGY INSTRUCTOR Goal: STG: Patient will respond to simple/complex open ended questions during activities of daily living with 90% accuracy with minimal cueing Dates: Start: 07/12/24 Expected End: 08/12/24 Disciplines: MICROBIOLOGY INSTRUCTOR Goal: STG: Patient will maintain topic of conversation to decrease tangential speech with 90% accuracy with minimal cueing Dates: Start: 07/12/24 Expected End: 08/12/24 Disciplines: MICROBIOLOGY INSTRUCTOR Speech Therapy Care Plan (Resolved) There are no resolved problems. Principal Problem: Dementia with behavioral disturbance ([facility]) Active Problems: Altered mental status Status post colostomy, follow-up exam ([facility]) [facility] 07-12-2024 Miscellaneous Notes Patient's sister, Ewa (not on HIPAA), called in asking to speak with Dr Price regarding patient's admission at [facility]. Patient had a tele consult with Dr Price on 07/03/24. Ewa would like to discuss some concerns that she has with Dr Price and possibly set up a hospital follow up. She is asking for a call back to further discuss [phone] CALLED AND SPOKE TO EWA TO LET HER KNOW THAT NOTHING CAN BE DISCUSSED WITH HER DUE TO HER NOT BEING ON PATIENTS HIPAA. EWA UNDERSTOOD Patient's spouse [phone] stated that they would like a call back to discuss [facility] stay. Called and spoke to patients and told her Dr Price seen Noé on a consultation on 07/03/24 and is no longer under his care. Dr Price consulted because he was production supervisor off shift and that the patient is still in [...] her insurance company. documented in this encounter [facility] 07-12-2024 Telephone encounter Note Patient's sister, Ewa (not on HIPAA), called in asking to speak with Dr Price regarding patient's admission at [facility]. Patient had a tele consult with Dr Price on 07/03/24. Ewa would like to discuss some concerns that she has with Dr Price and possibly set up a hospital follow up. She is asking for a call back to further discuss [phone] [facility] 07-12-2024 Telephone encounter Note CALLED AND SPOKE TO EWA TO LET HER KNOW THAT NOTHING CAN BE DISCUSSED WITH HER DUE TO HER NOT BEING ON PATIENTS HIPAA. EWA UNDERSTOOD [facility] 07-12-2024 Telephone encounter Note Patient's spouse [phone] stated that they would like a call back to discuss [facility] stay. [facility] 07-12-2024 Telephone encounter Note Called and spoke to patients and told her Dr Price seen Noé on a consultation on 07/03/24 and is no longer under his care. Dr Price consulted because he was production supervisor off shift and that the patient is still in [...] the care team and her insurance company. [facility] 07-12-2024 Consult note Associated Order (s): IP CONSULT TO PHYSICAL MEDICINE REHAB Images from the original note were not included. PHYSICAL MEDICINE AND REHABILITATION CONSULT Date of Admission: 07/06/2024 7:28 AM Referring Physician: Nichol Heath MD PCP: JAE LOPEZ MD Chief Compliant: Principal Problem: Dementia with behavioral disturbance ([facility]) Active Problems: Altered mental status Status post colostomy, follow-up exam ([facility]) Reason for Consultation: Rehabilitation [facility] Physicians/Services Consulting Providers Provider Service Specialty Mina [...] reflux disease) High cholesterol Perforated sigmoid colon ([facility]) PSH Past Surgical History: Procedure Laterality Date ARM EXPLORATION WITH REPAIR LACERATED ULNAR ARTERY Left 11/24/2019 Performed by Skyler Bowen MD at [facility] COLONOSCOPY [place] 3YEARS AGO COLOSTOMY CLOSURE Allergies Allergies Allergen [...] mg/dL Cytology Collection Time: 07/10/24 9:39 AM [facility] [address] [place] [address] Cytology Consultation Patient Name:NOÉ JEFFERY:1965 (Age: 58)Gender:MTaken:07/10/2024Report ed:07/11/2024 16:49Physician(s):Arnulfo Haley M.D. ([phone])Copy To:Quinton Harrell M.D. Rec. #:[id number]: #[id number] Final Cytologic Diagnosis Cerebrospinal fluid: No malignant cells identified. gr/07/11/2024 Interpretation performed at [facility], [address] [place] [address], License number: [id number].Electronically Signed Out By Derick Lorenz MD Additional Report(s): Flow Cytometry-Surg/BM/NG Date Reported: # Immunophenotyping antibodies tested: CD3, CD4, CD5, CD7, CD8, CD19, CD20, CD45, [place], and Lambda. Immunophenotyping Comment: Immunophenotyping has been used in this diagnostic evaluation. This test was developed and its performance characteristics determined by the [facility] Department. It has not been [...] MD Clinical History Dementia with behavioral disturbance ([facility]) F03.918, acute change in personality Gross Description Received was 2ml of clear colorless fluid unfixed labeled as Jeffery, CSF . Also received is one cytospin slide from Hematology. Source of Specimen Cerebrospinal fluid Non SLOPE HOIST OPERATOR ThinPrep, Cytospin Slide Fee Code(s): 1; 90596 VDRL, Spinal Fluid Collection Time: 07/10/24 9:39 [...] Assessment/Plan Principal Problem: Dementia with behavioral disturbance ([facility]) Active Problems: Altered mental status Status post colostomy, follow-up exam ([facility]) Acute mental status change patient also was [...] you for the referral. Nito Mirza MD [employer] Work Phone: 07-12-2024 Plan of care note Problem: Safety - Medical Restraint Goal: Remains free of injury from restraints (Restraint for Interference with Personal Vehicle Advisor) Description: INTERVENTIONS: 1. Determine that other, less [...] Free from restraint(s) (Restraint for Interference with Personal Vehicle Advisor) Description: INTERVENTIONS: 1. ONCE/SHIFT or MINIMUM Q12H: [...] nutrition and hydration, hygiene, ROM, elimination needs [facility] 07-12-2024 Progress note Formatting of t his note might be different from the original. BEHAVIORAL RESTRAINTS PROVIDER ONE HOUR [id number] EVALUATION NOTE Noé Jeffery was evaluated on [...] and others. Jackson Peterson PA-C 07/12/24 0058 [employer] Work Phone: 07-11-2024 Plan of care note [...] at the bedside 7. Instruct patient/ patient client relations representative about use of safety devices 8. Include patient/ patient client relations representative in decisions related to safety Outcome: Progressing Note: Evaluation of progress towards goal: Patient remains injury and fall free. Safety precautions in place: call light within reach, bed in lowest position, personal belongings within reach, oriented to environment, and non-slip footwear on. Problem: Knowledge Deficit Goal: Patient/patient client relations representative demonstrates understanding of disease process, [...] Collaborate with ancillary departments 14. Include patient/patient client relations representative in decisions related to anxiety Outcome: Progressing Note: Evaluation of progress towards goal: Patient has at bedside aiding in assisting with anxiety. Problem: Moderate - High Risk Fall Score Description: Gallegos Fall Score of =/> 25 or indicated by [facility] Assessment Goal: Patient should be free from fall Description: Interventions: 1. Lawson to environment 2. Hourly rounds addressing the [...] non-skid footwear 11. Teach patient and patient client relations representative to maintain environment for safety [...] (cane, walker) within reach 19. Request patient client relations representative bring adaptive equipment/mobility aids from home or obtain and provide as needed 20. Consult pharmacy regarding effects of med's affecting mobility, cognition, and alternatives 21. Obtain physician order for PT if risk factors associated with mobility are present 22. Obtain physician order for OT as appropriate 23. Utilize diversional activities 24. Educate patient and patient client relations representative how to maintain a safe environment during visitation times (notify nurse prior to leaving bedside) 25. Consider appropriateness of medical or non-medical radiation therapist 26. Set up voiding schedule as appropriate (every 2 hours) Outcome: Progressing Note: Evaluation of progress towards goal: Patient remains injury and fall free. Safety precautions in place: call light within reach, bed in lowest position, personal belongings within reach, oriented to environment, and non-slip footwear on. [facility] [employer] 07-11-2024 Consult note Associated Order (s): IP CONSULT TO PSYCHIATRY PSYCHIATRIC EVALUATION No contraindications for seclusion No contraindications for restraint CHIEF COMPLAINT: Dementia with behavioral disturbance (CMS-HCC) Noé Jeffery is a 58 y.o. male who presents with Dementia with behavioral disturbance (CMS-HCC) .he is HISTORY OF PRESENT ILLNESS: The patient is a 58-year-old [place] male treatment at the [facility] for the patient has a substantial history of dyslipidemia, sleep apnea, type 2 diabetes mellitus, recent diagnosed history of early-onset Alzheimer's dementia, an epileptic disorder in remission, as well as a recent admission to [facility] for altered mental status. An MRI of [...] discharged to a memory care unit or alf that is well-versed in the treatment of [...] 11/24/2019 Performed by Skyler Bowen MD at [facility] COLONOSCOPY [place] 3YEARS AGO COLOSTOMY CLOSURE Medications Prior to [...] to a memory care unit or a alf that is well-versed in management of memory [...] diversion. Mina Franks MD 07/11/2024 1:11 PM [facility] 07-11-2024 Progress note Formatting of t his note might be different from the original. DISCHARGE PLANNING NOTE Per RN during discharge transition rounds, barriers to discharge are: re-consulting psych today, telesitter and soft restraints, MRI and LP completed yesterday, patient behaviors are worse at night, unpredictable and confused. Discharge Plan: [facility] psych stated [facility] was sent a referral and they have declined. Waiting input from psych. Education Sales Consultant will continue to follow for any discharge needs. - Lesia Caba RN 07/11/24 12:06 PM Late entery: CN met with patient, Kari, and sister Ewa on Tuesday afternoon. and sister want the patient to go to a Traumatic Brain Injury rehab unit. CN began researching TBI Rehab units in the area, reported back to the and sister after finding TBI rehab units in [facility]. Sister asked for me to look in [facility]. and sister do not want any referrals send until they are able to meet with the neurologist again, sister wants to look into the TBI units in the [facility] herself before any referrals are sent. - Lesia Caba RN 07/12/24 8:11 AM [facility] 07-11-2024 Progress note Formatting of t his note might be different from the original. Referral sent to [facility] to assess for admission to that center's inpatient psychiatric unit. After a clinical review and screening was completed [facility] assessed patient as inappropriate for treatment at that facility. Will alert care team. - NANCY Martines 07/11/24 10:33 AM [employer] [facility] 07-11-2024 Progress note Formatting of t his note might be different from the original. DISCHARGE PLANNING NOTE Updates to [facility] [phone] [facility] 07-11-2024 Plan of care note Problem: [...] at the bedside 7. Instruct patient/ patient client relations representative about use of safety devices 8. Include patient/ patient client relations representative in decisions related to safety Outcome: Progressing Note: Evaluation of progress towards goal: Patient remains injury free at present time. Safe environment provided and maintained. Medications administered using 5 rights. Problem: Knowledge Deficit Goal: Patient/patient client relations representative demonstrates understanding of disease process, [...] Collaborate with ancillary departments 14. Include patient/patient client relations representative in decisions related to anxiety Outcome: Progressing Note: Evaluation of progress towards goal: Patient has at bedside assisting with anxiety. Problem: Moderate - High Risk Fall Score Description: Gallegos Fall Score of =/> 25 or indicated by [facility] Assessment Goal: Patient should be free from fall Description: Interventions: 1. Lawson to environment 2. Hourly rounds addressing the [...] non-skid footwear 11. Teach patient and patient client relations representative to maintain environment for safety [...] (cane, walker) within reach 19. Request patient client relations representative bring adaptive equipment/mobility aids from home or obtain and provide as needed 20. Consult pharmacy regarding effects of med's affecting mobility, cognition, and alternatives 21. Obtain physician order for PT if risk factors associated with mobility are present 22. Obtain physician order for OT as appropriate 23. Utilize diversional activities 24. Educate patient and patient client relations representative how to maintain a safe environment during visitation times (notify nurse prior to leaving bedside) 25. Consider appropriateness of medical or non-medical radiation therapist 26. Set up voiding schedule as appropriate (every 2 hours) Outcome: Progressing Note: Evaluation of progress towards goal: Patient currently free from falls, up standby. [facility] 07-11-2024 Plan of care note Problem: [...] injury from restraints (Restraint for Interference with Personal Vehicle Advisor) Description: INTERVENTIONS: 1. Determine that other, less [...] Free from restraint(s) (Restraint for Interference with Personal Vehicle Advisor) Description: INTERVENTIONS: 1. ONCE/SHIFT or MINIMUM Q12H: [...] safety; individualizes the safety outcome 07/11/2024108 by AMR[facility] Barrow Outcome: Completed Note: Evaluation of progress towards goal: 07/10/20242235 by MARCI Barrow Outcome: Progressing Note: Evaluation of progress towards goal: Q2H: Monitor safety, Vital signs, psychosocial status, signs of injury, skin integrity, circulation, neurovascular status in affected extremities, respiratory status, comfort, nutrition and hydration, hygiene, ROM, elimination needs [facility] 07-10-2024 Progress note Formatting of t his note might be different from the original. BEHAVIORAL RESTRAINTS PROVIDER ONE HOUR [id number] EVALUATION NOTE Noé Jeffery was evaluated on [...] and others. Jackson Peterson PA-C 07/11/24 0036 [facility] [employer] [facility] 07-10-2024 Plan of care note Problem: [...] at the bedside 7. Instruct patient/ patient client relations representative about use of safety devices 8. Include patient/ patient client relations representative in decisions related to safety [...] hygiene technique. 7. Identify and instruct patient/patient client relations representative in use of appropriate isolation precautions for identified infection/symptoms. 8. Provide and discuss with patient/patient client relations representative on educational MDRO sheet. 9. Encourage and monitor nutritional status daily and consult nutrition professor if indicated. 10. Implement neutropenic guidelines as needed. Outcome: Progressing Note: Evaluation of progress towards goal: Patient remains free of any signs of infection. Signs and symptoms being monitor such as fevers, chills, warm/red areas. Problem: Knowledge Deficit Goal: Patient/patient client relations representative demonstrates understanding of disease process, [...] Collaborate with ancillary departments 14. Include patient/patient client relations representative in decisions related to anxiety Outcome: Progressing Note: Evaluation of progress towards goal: Patient's anxiety is at manageable level. Problem: Safety - Medical Restraint Goal: Remains free of injury from restraints (Restraint for Interference with Personal Vehicle Advisor) Description: INTERVENTIONS: 1. Determine that other, less [...] Free from restraint(s) (Restraint for Interference with Personal Vehicle Advisor) Description: INTERVENTIONS: 1. ONCE/SHIFT or MINIMUM Q12H: [...] on patient's door 9. Provide patient/ patient client relations representative with isolation education. Outcome: Progressing Note: Evaluation of progress towards goal: Discard single-use items. Clean reusable equipment. Wear gloves for direct and indirect patient care. Wash hands before and after care of patient. Problem: Moderate - High Risk Fall Score Description: Gallegos Fall Score of =/> 25 or indicated by [facility] Assessment Goal: Patient should be free from fall Description: Interventions: 1. Lawson to environment 2. Hourly rounds addressing the [...] non-skid footwear 11. Teach patient and patient client relations representative to maintain environment for safety [...] (cane, walker) within reach 19. Request patient client relations representative bring adaptive equipment/mobility aids from home or obtain and provide as needed 20. Consult pharmacy regarding effects of med's affecting mobility, cognition, and alternatives 21. Obtain physician order for PT if risk factors associated with mobility are present 22. Obtain physician order for OT as appropriate 23. Utilize diversional activities 24. Educate patient and patient client relations representative how to maintain a safe environment during visitation times (notify nurse prior to leaving bedside) 25. Consider appropriateness of medical or non-medical radiation therapist 26. Set up voiding schedule as appropriate (every 2 hours) Outcome: Progressing Note: Evaluation of progress towards goal: Patient remains injury and fall free. Safety precautions in place: call light within reach, bed in lowest position, personal belongings within reach, oriented to environment, and non-slip footwear on. [facility] 07-10-2024 Plan of care note Problem: [...] at the bedside 7. Instruct patient/ patient client relations representative about use of safety devices 8. Include patient/ patient client relations representative in decisions related to safety [...] hygiene technique. 7. Identify and instruct patient/patient client relations representative in use of appropriate isolation precautions for identified infection/symptoms. 8. Provide and discuss with patient/patient client relations representative on educational MDRO sheet. 9. Encourage and monitor nutritional status daily and consult nutrition professor if indicated. 10. Implement neutropenic guidelines as needed. Outcome: Progressing Note: Evaluation of progress towards goal: patient remains afebrile at this time Problem: Knowledge Deficit Goal: Patient/patient client relations representative demonstrates understanding of disease process, [...] Collaborate with ancillary departments 14. Include patient/patient client relations representative in decisions related to anxiety Outcome: Progressing Note: Evaluation of progress towards goal: discussed w/ patient coping strategies & dietary changes that may aid in controlling stress & anxiety. Problem: Safety - Medical Restraint Goal: Remains free of injury from restraints (Restraint for Interference with Personal Vehicle Advisor) Description: INTERVENTIONS: 1. Determine that other, less [...] Free from restraint(s) (Restraint for Interference with Personal Vehicle Advisor) Description: INTERVENTIONS: 1. ONCE/SHIFT or MINIMUM Q12H: [...] on patient's door 9. Provide patient/ patient client relations representative with isolation education. Outcome: Progressing Note: Evaluation of progress towards goal: patient remains afebrile at this time Problem: Moderate - High Risk Fall Score Description: Gallegos Fall Score of =/> 25 or indicated by [facility] Assessment Goal: Patient should be free from fall Description: Interventions: 1. Lawson to environment 2. Hourly rounds addressing the [...] non-skid footwear 11. Teach patient and patient client relations representative to maintain environment for safety [...] (cane, walker) within reach 19. Request patient client relations representative bring adaptive equipment/mobility aids from home or obtain and provide as needed 20. Consult pharmacy regarding effects of med's affecting mobility, cognition, and alternatives 21. Obtain physician order for PT if risk factors associated with mobility are present 22. Obtain physician order for OT as appropriate 23. Utilize diversional activities 24. Educate patient and patient client relations representative how to maintain a safe environment during visitation times (notify nurse prior to leaving bedside) 25. Consider appropriateness of medical or non-medical radiation therapist 26. Set up voiding schedule as appropriate (every 2 hours) Outcome: Progressing Note: Evaluation of progress towards goal: patient remains free of injury & verbalizes understanding of fall prevention; call light in reach [facility] 07-10-2024 Progress note Formatting of t his note might be different from the original. DISCHARGE PLANNING NOTE Per RN during discharge transition rounds, barriers to discharge are: MRI with sedation today, LP with sedation today, restraints removed after procedures today, assess as needed for restraints, re-consult psych. Discharge Plan: [facility] VILLANUEVA discussed case with colin Solorio Education Sales Consultant will continue to follow for any discharge needs. - Lesia Caba RN 07/10/24 3:16 PM [facility] 07-10-2024 Plan of care note 07/10/24 1145: Evaluated patient after his procedures, he is calm at this time and currently not threat to himself or staff therefore we will discontinue violent restraints. He is though pulling at his lines and IV so will place bilateral soft wrist restraints. We will re-evaluate as needed Nichol Heath MD [facility] 07-10-2024 Nurse Note Patient still off unit at this time 11:58 s/p sedated MRI & LP procedure. Per neurologist, Dr Johnson, patient needs to remain flat 1-2hrs & may have regular diet. Health Services Administrator awaiting patient return to unit & per report 1:1 sitter remains at patient bedside. [facility] 07-10-2024 Procedure note Associated Ord er(s): Lumbar Puncture Post-Procedure Diagnose(s): Dementia with behavioral disturbance ([facility]) PROCEDURE: Lumbar Puncture Date/Time: 07/10/2024 9:58 AM [...] to verify the correct patient, procedure, equipment, support associate and site/side marked as required. Anesthesia: local infiltration Anesthesia: Local Anesthetic: lidocaine 1% without epinephrine Sedation: Patient sedated: yes Lumbar space: L3-L4 interspace Patient's position: left lateral decubitus Opening pressure: 12 cm H2O Fluid appearance: clear Tubes of fluid: 4 Total volume: 17.5 ml Post-procedure: pressure dressing applied and adhesive bandage applied Procedure was completed Complications: none Arnulfo Haley MD PGY2 Neurology [facility] Cosigned by Zach Nails MD at 07/11/2024 12:41 AM EST Associated attestation - Zach Nails MD - 07/11/2024 12:41 AM EST Zach Nails MD Louver Mortiser Operator Dept of Neurology [facility] 07-10-2024 Procedure note Associated Ord er(s): Lumbar Puncture Post-Procedure Diagnose(s): Dementia with behavioral disturbance ([facility]) PROCEDURE: Lumbar Puncture Date/Time: 07/10/2024 9:58 AM [...] to verify the correct patient, procedure, equipment, support associate and site/side marked as required. Anesthesia: local infiltration Anesthesia: Local Anesthetic: lidocaine 1% without epinephrine Sedation: Patient sedated: yes Lumbar space: L3-L4 interspace Patient's position: left lateral decubitus Opening pressure: 12 cm H2O Fluid appearance: clear Tubes of fluid: 4 Total volume: 17.5 ml Post-procedure: pressure dressing applied and adhesive bandage applied Procedure was completed Complications: none Arnulfo Haley MD PGY2 Neurology [facility] Cosigned by Zach Nails MD at 07/11/2024 12:41 AM EST Associated attestation - Zach Nails MD - 07/11/2024 12:41 AM EST Zach Nails MD Louver Mortiser Operator Dept of Neurology [facility] documented in this encounter [facility] 07-10-2024 Nurse Note SPECIMENS X4 WERE COLLECTED, PROCESSED, AND SENT TO LAB BY DR. ARNULFO HALEY. [facility] 07-10-2024 Plan of care note Problem: Safety [...] at the bedside 7. Instruct patient/ patient client relations representative about use of safety devices 8. Include patient/ patient client relations representative in decisions related to safety [...] hygiene technique. 7. Identify and instruct patient/patient client relations representative in use of appropriate isolation precautions for identified infection/symptoms. 8. Provide and discuss with patient/patient client relations representative on educational MDRO sheet. 9. Encourage and monitor nutritional status daily and consult nutrition professor if indicated. 10. Implement neutropenic guidelines as needed. Outcome: Progressing Note: Evaluation of progress towards goal: Skin integrity remains in stable condition; remains w/o ss of infection, fever, pain, or increased discomfort. Problem: Knowledge Deficit Goal: Patient/patient client relations representative demonstrates understanding of disease process, [...] needs. Problem: Low Risk Fall Score Description: Agllegos Fall Score of 0 - 24 or indicated by [facility] Assessment Goal: Patient should be free from fall Description: Interventions: 1. Lawson to environment 2. Hourly rounds addressing the [...] non-skid footwear 11. Teach patient and patient client relations representative to maintain environment for safety [...] Collaborate with ancillary departments 14. Include patient/patient client relations representative in decisions related to anxiety [...] on patient's door 9. Provide patient/ patient client relations representative with isolation education. Outcome: Progressing Note: Evaluation of progress towards goal: Skin integrity remains in stable condition; remains w/o ss of infection, fever, pain, or increased discomfort. Problem: Moderate - High Risk Fall Score Description: Gallegos Fall Score of =/> 25 or indicated by [facility] Assessment Goal: Patient should be free from fall Description: Interventions: 1. Lawson to environment 2. Hourly rounds addressing the [...] non-skid footwear 11. Teach patient and patient client relations representative to maintain environment for safety [...] (cane, walker) within reach 19. Request patient client relations representative bring adaptive equipment/mobility aids from home or obtain and provide as needed 20. Consult pharmacy regarding effects of med's affecting mobility, cognition, and alternatives 21. Obtain physician order for PT if risk factors associated with mobility are present 22. Obtain physician order for OT as appropriate 23. Utilize diversional activities 24. Educate patient and patient client relations representative how to maintain a safe environment during visitation times (notify nurse prior to leaving bedside) 25. Consider appropriateness of medical or non-medical radiation therapist 26. Set up voiding schedule as appropriate (every 2 hours) Outcome: Progressing Note: Evaluation of progress towards goal: Call light within reach. Remains free of fall or injury. Environment free of clutter. [facility] 07-09-2024 Progress note Formatting of t his note might be different from the original. BEHAVIORAL RESTRAINTS PROVIDER ONE HOUR [id number] EVALUATION NOTE Noé Jeffery was evaluated on [...] 07/10/24 0522 Jackson Peterson PA-C 07/10/24 0523 [facility] 07-09-2024 Plan of care note Problem: Safety [...] at the bedside 7. Instruct patient/ patient client relations representative about use of safety devices 8. Include patient/ patient client relations representative in decisions related to safety [...] hygiene technique. 7. Identify and instruct patient/patient client relations representative in use of appropriate isolation precautions for identified infection/symptoms. 8. Provide and discuss with patient/patient client relations representative on educational MDRO sheet. 9. Encourage and monitor nutritional status daily and consult nutrition professor if indicated. 10. Implement neutropenic guidelines as needed. Outcome: Progressing Note: Evaluation of progress towards goal: patient remains afebrile at this time Problem: Knowledge Deficit Goal: Patient/patient client relations representative demonstrates understanding of disease process, [...] of 0 - 24 or indicated by [facility] Assessment Goal: Patient should be free from fall Description: Interventions: 1. Lawson to environment 2. Hourly rounds addressing the [...] non-skid footwear 11. Teach patient and patient client relations representative to maintain environment for safety [...] Collaborate with ancillary departments 14. Include patient/patient client relations representative in decisions related to anxiety [...] injury from restraints (Restraint for Interference with Personal Vehicle Advisor) Description: INTERVENTIONS: 1. Determine that other, less [...] Free from restraint(s) (Restraint for Interference with Personal Vehicle Advisor) Description: INTERVENTIONS: 1. ONCE/SHIFT or MINIMUM Q12H: [...] on patient's door 9. Provide patient/ patient client relations representative with isolation education. Outcome: Progressing Note: Evaluation of progress towards goal: patient remains afebrile at this time [facility] 07-09-2024 Progress note Formatting of t his note might be different from the original. DISCHARGE PLANNING NOTE Clinical updates including sent to. [facility] Jose Enrique. (P# [phone] ; F# [phone]) via [employer] [facility] 07-09-2024 Progress note Formatting of t [...] . Thank you, Ethel Bueno RN, PRADEEP [email or web address] The patient's Clinical Indicators include: As above CDI RESPONSE TEXT: Patient has progression of dementia causing agitation, no evidence of metabolic or toxic encephalopathy. Query created by: Ethel Bueno on 07/09/2024 5:42 AM Electronically signed by: Lonnie Baker MD 07/09/2024 3:22 PM [facility] 07-09-2024 Progress note Formatting of t his note might be different from the original. DISCHARGE PLANNING NOTE Referral sent to [facility] (P# [phone] ; F# [phone]) [facility] Progress note Formatting of t his [...] patient to return home. Psych SW following. Education Sales Consultant will continue to follow for any discharge needs. - Lesia Caba RN 07/09/24 1:11 [facility] Plan of care note Problem: Safety [...] at the bedside 7. Instruct patient/ patient client relations representative about use of safety devices 8. Include patient/ patient client relations representative in decisions related to safety [...] hygiene technique. 7. Identify and instruct patient/patient client relations representative in use of appropriate isolation precautions for identified infection/symptoms. 8. Provide and discuss with patient/patient client relations representative on educational MDRO sheet. 9. Encourage and monitor nutritional status daily and consult nutrition professor if indicated. 10. Implement neutropenic guidelines as needed. Outcome: Progressing Note: Evaluation of progress towards goal: monitor s/s of infection Problem: Knowledge Deficit Goal: Patient/patient client relations representative demonstrates understanding of disease process, [...] of 0 - 24 or indicated by [facility] Assessment Goal: Patient should be free from fall Description: Interventions: 1. Lawson to environment 2. Hourly rounds addressing the [...] non-skid footwear 11. Teach patient and patient client relations representative to maintain environment for safety [...] Collaborate with ancillary departments 14. Include patient/patient client relations representative in decisions related to anxiety [...] injury from restraints (Restraint for Interference with Personal Vehicle Advisor) Description: INTERVENTIONS: 1. Determine that other, less [...] Free from restraint(s) (Restraint for Interference with Personal Vehicle Advisor) Description: INTERVENTIONS: 1. ONCE/SHIFT or MINIMUM Q12H: [...] goal: fall precautions in place, hourly rounding [facility] 07-08-2024 Progress note Formatting of t his note might be different from the original. BEHAVIORAL RESTRAINTS PROVIDER ONE HOUR [id number] EVALUATION NOTE Noé Jeffery was evaluated on [...] and others. Jackson Peterson PA-C 07/09/24 0344 [facility] 07-08-2024 Progress note Formatting of t his note might be different from the original. [facility] BEHAVIORAL RESTRAINTS PROVIDER ONE HOUR [id number] EVALUATION NOTE Noé Jeffery was evaluated on [...] and others. Jackson Peterson PA-C 07/08/24 0446 [facility] 07-08-2024 Plan of care note Problem: [...] at the bedside 7. Instruct patient/ patient client relations representative about use of safety devices 8. Include patient/ patient client relations representative in decisions related to safety [...] hygiene technique. 7. Identify and instruct patient/patient client relations representative in use of appropriate isolation precautions for identified infection/symptoms. 8. Provide and discuss with patient/patient client relations representative on educational MDRO sheet. 9. Encourage and monitor nutritional status daily and consult nutrition professor if indicated. 10. Implement neutropenic guidelines as needed. Outcome: Progressing Note: Evaluation of progress towards goal: Patient has no infection at this time. Problem: Knowledge Deficit Goal: Patient/patient client relations representative demonstrates understanding of disease process, [...] of 0 - 24 or indicated by [facility] Assessment Goal: Patient should be free from fall Description: Interventions: 1. Lawson to environment 2. Hourly rounds addressing the [...] non-skid footwear 11. Teach patient and patient client relations representative to maintain environment for safety [...] Collaborate with ancillary departments 14. Include patient/patient client relations representative in decisions related to anxiety Outcome: Progressing Note: Evaluation of progress towards goal: Patient is able to manage anxiety level at this time, plan of care still ongoing. [facility] 07-07-2024 Plan of care note Problem: [...] at the bedside 7. Instruct patient/ patient client relations representative about use of safety devices 8. Include patient/ patient client relations representative in decisions related to safety [...] hygiene technique. 7. Identify and instruct patient/patient client relations representative in use of appropriate isolation precautions for identified infection/symptoms. 8. Provide and discuss with patient/patient client relations representative on educational MDRO sheet. 9. Encourage and monitor nutritional status daily and consult nutrition professor if indicated. 10. Implement neutropenic guidelines as needed. Outcome: Progressing Note: Evaluation of progress towards goal: monitor s/s of infection, monitor labs, standard precautions Problem: Knowledge Deficit Goal: Patient/patient client relations representative demonstrates understanding of disease process, [...] of 0 - 24 or indicated by [facility] Assessment Goal: Patient should be free from fall Description: Interventions: 1. Lawson to environment 2. Hourly rounds addressing the [...] non-skid footwear 11. Teach patient and patient client relations representative to maintain environment for safety and engage in all aspects of fall prevention program Outcome: Progressing Note: Evaluation of progress towards goal: fall precautions in place, hourly rounding, call light within reach [facility] 07-07-2024 Progress note Formatting of t his [...] by: Khalif Valerio MD 07/07/2024 7:10 AM [facility] 07-06-2024 Plan of care note Problem: [...] at the bedside 7. Instruct patient/ patient client relations representative about use of safety devices 8. Include patient/ patient client relations representative in decisions related to safety [...] hygiene technique. 7. Identify and instruct patient/patient client relations representative in use of appropriate isolation precautions for identified infection/symptoms. 8. Provide and discuss with patient/patient client relations representative on educational MDRO sheet. 9. Encourage and monitor nutritional status daily and consult nutrition professor if indicated. 10. Implement neutropenic guidelines as needed. Outcome: Progressing Note: Evaluation of progress towards goal: Patient remains free of any signs of infection. Signs and symptoms being monitor such as fevers, chills, warm/red areas. Problem: Knowledge Deficit Goal: Patient/patient client relations representative demonstrates understanding of disease process, [...] be free from fall Description: Interventions: 1. Lawson to environment 2. Hourly rounds addressing the [...] non-skid footwear 11. Teach patient and patient client relations representative to maintain environment for safety [...] Description: INTERVENTIONS: 1. Encourage patient or legal client relations representative to report early pain and [...] per policy 9. Teach patient or legal client relations representative interventions for comforting Outcome: Completed Note: Evaluation of progress towards goal: Patient has no complaints of pain. Reassessed per policy. [facility] 07-06-2024 Progress note Formatting of t his note might be different from the original. An attempt was made to interview the patient today in the presence of his . The patient refused and asked the typewriters functional tester to leave stating that he does not want a psychiatric evaluation. Psychiatry will sign off. [facility] Work Phone: 07-06-2024 Progress note Formatting of t his note is different from the original. Images from the original note were not included. DISCHARGE PLANNING NOTE Health Services Administrator met with patient, introduced self, and explained [...] medication assistance resources. PCP: JAE LOPEZ MD Pharmacy:[facility] PCP and pharmacy confirmed with patient. CN [...] - Jac Austin RN 07/06/24 4:01 PM [facility] 07-06-2024 Progress note Formatting of t his note might be different from the original. Called spouse and left message. Will await call back. - NANCY Martines 07/06/24 3:25 PM [facility] 07-06-2024 Progress note Formatting of t his [...] spouse. - NANCY Martines 07/06/24 11:02 AM [facility] 07-06-2024 Consult note Associated Order (s): IP CONSULT TO NEUROLOGY Images from the original note were not included. [facility] Neurology General Neurology Consult Note Primary Neurology service: [phone] Chief Complaint: HPI: Noé Jeffery is a [...] with complete remission. He follows up with [facility] and had underwent a heavy metal [...] decline, Patient had presented to ED in [place] June 18 after waking up not oriented and delusional. Then June 25 he woke up again not knowing where he is delusional thinking his sister was an intruder so he was brought to [facility] and discharged later that evening. 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 The impression there was no infectious or metabolic etiology so patient was transferred to [facility] for higher level of care. On my evaluation patient was restless fidgeting and did not allow me to speak him or enter the room, he would tell me his family members names what refused to tell me his name asked me to leave the room. I could not do any assessment [place] test or neurological exam. Per family patient [...] markers confirmed early onset Alzheimer's established in [facility] October 2022 in addition to hyperlipidemia, GERD, dm 2. Patient was transferred found [facility] for higher level of care and workup of sharp decline in cognition since May 2024. Patient had presented multiple times to the ED and admitted [facility] for delusional thinking/hallucinations/agitatio n. On evaluation patient [...] once reconciled. Khalif Valerio MD PGY-1 Neurology [facility] 07/06/24 9:[address] Sofia This patient is being followed by the Neurology Resident service. Contact attending directly during these hours: Tuesday to 7:30-8:30 A.M. to Tuesday 12-1:00 p.m. Primary Neurology service: [phone] Consult neurology service: [phone] Resident Stroke Service: [phone] If the patient belongs to the Stroke ASHLEE service please contact the Stroke ASHLEE directly. Cosigned by Kelley Sofia MD at 07/06/2024 11:32 PM EST Associated attestation - Kelley Sofia MD - 07/06/2024 11:32 PM EST Kelley Sofia MD Neurology [facility] 07-06-2024 History and physical note Images from the original note were not included. [facility] Physicians Hospitalists History and Physical 07/06/2024 Patient [...] dementia, GERD, perforated colon who presents to [facility] as a transfer from [place] for neurologic evaluation. History obtained from sister [...] 11/24/2019 Performed by Skyler Bowen MD at [facility] [place] 3YEARS AGO COLOSTOMY CLOSURE Allergy: Diphenhydramine Prior to Admission medications Medication Sig Start Date End Date Taking? Authorizing Provider aspirin 81 mg Take 1 tablet (81 mg total) by mouth daily. Patient not taking: Reported on 05/06/2020 11/26/19 Kathia Gabriel APRN-PUBLISHING SPECIALIST [employer] 28 gauge lancets 09/07/18 Not In [...] in full via EMR. Nichol Heath MD [facility] 07-06-2024 History and physical note Images from the original note were not included. [facility] Hospitalists History and Physical 07/06/2024 Patient [...] Chief Complaint No chief complaint on file. [facility] Noé Jeffery is a 58 y.o. male past medical history of early-onset dementia, GERD, perforated colon who presents to [facility] as a transfer from [place] for neurologic evaluation. History obtained from sister [...] 11/24/2019 Performed by Skyler Bowen MD at [facility] [place] 3YEARS AGO COLOSTOMY CLOSURE Allergy: Diphenhydramine Prior [...] Nichol Heath MD documented in this encounter [facility] 06-26-2024 Note Progress Note-Nurse Attempted to call office due to family requesting additional lab work (PSA level). There was no answer at the office and no option to leave voicemail. Intrusted family to call later on today to talk to Dr. Graham's die operator about obtained PSA level [facility] 03-09-2024 Telephone encounter Note I have refilled your prescription. A review of your chart shows that you have not had a follow up visit in more than 1 year. Refills for medications require at least 1 follow up visit per year. Please call: to schedule an appointment. Lisandra Gomez APRN.CNP [facility] 03-09-2024 Miscellaneous Notes I have refilled your prescription. A review of your chart shows that you have not had a follow up visit in more than 1 year. Refills for medications require at least 1 follow up visit per year. Please call: to schedule an appointment. Lisandra Gomez APRN.CNP documented in this encounter [facility] 01-11-2024 Hospital Discharge instructions Patient Education 01/11/2024 [...] treatment? Where to find more information The [place] [employer]: www.cancer.org [place] [employer] Association: www.auanet.org Contact a health care [...] provider. Document Revised: 11/30/2021 Document Reviewed: 11/30/2021 WO Funding Patient Education 2022 [employer]. Follow Up Care 12/23/2023 09:42:08 With:Santos PEÑA, Danni Portillo, URL, URO Address: When: Unknown Comments:Pending MRI, may proceed with fusion bx [facility] 01-11-2024 Note Urology Office/Clini c Note Chief [...] repair with mesh. -[place] [facility] [place]. -Will schedule MRI fusion transperineal prostate [...] Biopsy of pro (more content not included)... [facility] Comment on above: Result Comment: Elec [...] Where to find more information ? The [place] [employer]: www.cancer.org ? [place] U[employer] Association: www.auanet.org Contact a health care [...] of the rectum. (more content not included)... [facility] 12-06-2023 Telephone encounter Note The following approved medication requests have been transmitted electronically. Requested Prescriptions Signed Prescriptions Disp Refills donepezil (ARICEPT) 5 mg tablet 90 tablet 0 Sig: Take 1 tablet by mouth once daily. Authorizing Provider: LORRI PLASCENCIA Ordering User: JESSICATANISHA YOUNG APRN.CNP [facility] 12-06-2023 Miscellaneous Notes The following approved medication requests have been transmitted electronically. Requested Prescriptions Signed Prescriptions Disp Refills donepezil (ARICEPT) 5 mg tablet 90 tablet 0 Sig: Take 1 tablet by mouth once daily. Authorizing Provider: LORRI PLASCENCIA Ordering User: TANISHA JEFFERS APRN.CNP documented in this encounter [facility] 03-07-2023 Miscellaneous Notes Summary: [facility] Baseline Interest A voicemail was left about participation in [facility] research study. documented in this encounter [facility] 02-09-2023 Miscellaneous Notes Plistent message sent documented in this encounter [facility] 02-08-2023 Miscellaneous Notes Summary: [facility] Potential Participant A call was made to of patient to talk about interest in participating in [facility]. expressed interest in participating. The [facility] consent document was sent through email. A call will be made in a week to discuss enrollment. documented in this encounter [facility] 02-04-2023 Miscellaneous Notes Images from the original note were not included. documented in this encounter [facility] 02-02-2023 Miscellaneous Notes The following approved medication requests have been transmitted electronically. Requested Prescriptions Signed Prescriptions Disp Refills donepezil (ARICEPT) 5 mg tablet 90 tablet 1 Sig: TAKE 1 TABLET BY MOUTH EVERY DAY Authorizing Provider: LORRI PLASCENCIA Ordering User: KIMO PATE APRN.CNP documented in this encounter [facility] 01-13-2023 Miscellaneous Notes Patient returned call, requested a call back. I left a message explaining the 4% requirement from Medicare, and advised to contact Medicare if they have insurance questions. Advised to call me back if they had other concerns or questions. Sonal Weinstein APRN.EFRAIN documented in this encounter [facility] 12-03-2022 Miscellaneous Notes Faxed order, office notes, demographics, and sleep study to: DME name: [facility] fax: [phone] DME ph: documented in this encounter [facility] 12-02-2022 History of Present illness Narrative Images from the original note were not included. [facility] Follow up/ Established patient [...] will have a prescription sent to a [employer] ([employer]) company - [employer] who will be calling you in the [...] you. Roosevelt Merlos PGY-4 Sleep fellow [facility] I have supervised and discussed the patient case with the Sleep Medicine Fellow including interviewing the patient in person and have updated the electronic medical record where necessary. I agree with the history, physical, impression and recommendations as documented. Gera Cardona DO, CBSM, ABSM Clinical Staff Sleep Medicine [facility] [place] [facility] [address] [place] [address] I have communicated my name and active licensure. The patient's identity and physical location were verified at the time of this visit. Either the patient or their legal client relations representative has been informed of the risks and benefits of -- and alternatives to -- treatment through a remote evaluation and consents to proceed with the evaluation remotely. Interval history : Here for follow up for SHELBY follow up after starting PAP therapy. ; SLEEP APNEA Sleep apnea type : SHELBY, Most Recent Apnea-Hypopnea Index (AHI): 47.7 Treatment : PAP therapy DME: [employer] PAP History: Uses Bilevel PAP for 2 [...] or near accidents due to drowsy drivin [place] Sleepiness Scale 04/28/2022 Score Incomplete PROMIS CAT [...] which included preparing to see the patient, [id number]-[id number] patient care, completing clinical documentation, obtaining and/or [...] are our recommendations: - Cognitive therapy at [facility]. - Aricept 5 mg daily with breakfast - Namenda 5 twice a day with breakfast and dinner. - Maintain physically, socially and cognitively healthy lifestyle. - Schedule in person report in February 2023. Please schedule next visit with Lorri Plascencia MD, PhD or Kimo Pate NP in person in February -March 2023 To schedule testing and visits please call: [phone]. If you have new, unexpected concerns in between visits please call our office at [phone] ( you will be able to reach one of our nurses). [facility] fax [phone] Ways to keep your brain healthy: Follow [...] fish and fish high in mercury (swordfish, Guamanian sea martinez, orange roughy, ahi tuna, albacore [...] resources are: The Alzheimer's Association (web site: alz.org/broken arrow) available 24 hours a day, 7 days per week. Contact: Local: ; Toll free: [phone] Family Caregiver [place] (web site: Caregiver.org) MARLEEN Hawkins-- a secure online solution for quality information, support, and resources for family caregivers. Contact: Toll-free number: 495.820.3199 Alzheimers.gov - Find Alzheimer disease and related dementias information, resources, research and more. documented in this encounter [facility] 11-17-2022 History of Present illness Narrative Images from the original note were not included. Noé Jeffery [address] [place] [id number] November 17, 2022 [facility] Report Virtual Virtual visit with Patient and family members Chief complaint: poor memory, forgetfulness I have communicated my name and active licensure. The patient's identity and physical location were verified at the time of this visit. Either the patient or their legal client relations representative has been informed of the [...] that time. 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 He recalls forgetting a clip/tie for his gun one day. He also failed firearm safety training which is required every months. He states he is still able to perform ADLs at home and still able to work in his other job with [employer]. 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 Bradycardia. PLAN: - [facility] referral - Cognitive therapy at [facility]. - Aricept 5 mg daily [...] . Lorri Plascencia MD, PhD Geriatric Psychiatry [facility] Brain Health CC: 1. No primary care provider on file., (fax) None documented in this encounter [facility] 10-12-2022 Nurse Note [facility] LUMBAR PUNCTURE NURSE DISCHARGE NOTE [...] Jeffers RN documented in this encounter [facility] 10-12-2022 Instructions Miguelito Chicas APRN.PUBLISHING SPECIALIST - 10/12/2022 10:31 AM EDT Images from the original note were not included. [facility] Neurological [place] GOING HOME INSTRUCTIONS POST LP HEADACHE Prevention [...] as coffee or tea You can take kvvs-ing-edmmeme Tylenol and/or Ibuprofen as directed INFECTION PREVENTION [...] from 8-5pm, please contact our office line [phone] and then hit 0 , please ask our technical administrative assistant to page the provider who performed the spinal tap. -For nights or weekends, call or toll free and ask the mule operator the page the Neurology resident on-call. 2. If your headache is unusually severe regardless of bedrest or lasts more than two days 3. If you develop a fever 4. If you notice inflammation, pus formation or clear drainage from the site of the needle puncture You may resume your usual activities after 48 hours. documented in this encounter [facility] 10-12-2022 History of Present illness Narrative [facility] PROCEDURE FOR DIAGNOSTIC TESTING Noé Jeffery, [id number] October 12, 2022, 8:57 AM INFORMED CONSENT [...] 12, 2022 documented in this encounter [facility] 08-12-2022 History of Present illness Narrative [...] Abs Lymph 1.00 - 4.00 k/uL 1.45 Chaffee% % 6.2 Abs Chaffee <0.87 k/uL 0.31 Eosin% % 0.6 Abs Eosin <0.46 k/uL 0.03 Baso% % 0.8 Abs Baso <0.11 k/uL 0.04 Immature Gran % % 0.2 IMMATURE GRANS (ABS) <0.10 k/uL <0.03 NRBC /100 WBC 0.0 Absolute nRBC <0.01 k/uL <0.01 DTYPE Auto Care Coordination Interventions: none Leah Mckeon RN documented in this encounter [facility] 08-11-2022 Instructions Lorri Plascencia MD - [...] To schedule testing and visits please call: [phone]. If you have new, unexpected concerns in between visits please call our office at [phone] ( you will be able to reach one of our nurses). [facility] fax [phone] Ways to keep your brain healthy: Follow [...] fish and fish high in mercury (swordfish, Guamanian sea martinez, orange roughy, ahi tuna, albacore [...] resources are: The Alzheimer's Association (web site: alz.org/broken arrow) available 24 hours a day, 7 days per week. Contact: Local: ; Toll free: [phone] Family Caregiver [place] (web site: Caregiver.org) MARLEEN Hawkins-- a secure online solution for quality information, support, and resources for family caregivers. Contact: Toll-free number: [phone] Alzheimers.gov - Find Alzheimer disease and related dementias information, resources, research and more. documented in this encounter [facility] 08-11-2022 History of Present illness Narrative Images from the original note were not included. Noé Jeffery [address] [place] [id number] August 11, 2022 Time: 2:35 PM Center [...] that time. 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 Lorri Plascencia MD, PhD Geriatric Psychiatry [facility] Brain Health CC: 1. No primary care provider on file., (fax) None documented in this encounter [facility] 07-22-2022 History of Present illness Narrative No show. Connection aborted after 15 min. of waiting online KGR documented in this encounter [facility] 05-07-2022 Miscellaneous Notes Radiology Service Progress Note [...] DATA: Not applicable SIGNED BY: Nicole Huffman, truss maker May 07, 2022 1:31 PM documented in this encounter [facility] 04-30-2022 Instructions Roosevelt Merlos MD - 04/30/2022 [...] will have a prescription sent to a [employer] ([employer]) company - [employer] who will be calling you in the next 1-2 weeks or so. Please call them directly or us if you do not hear from them in this time frame. - You should be eligible for new supplies approximately every 3-6 months, depending on your insurance coverage. - If your mask doesn't fit well, call the [employer] company before 30 days are up to get a new mask without an additional charge. - Insurance requires regular usage and periodic office follow ups for PAP therapy, to continue to cover supplies. - Follow up in 2 months in the office. Recommend scheduling this appointment now to ensure the best time for you. CMS Requirements - Your insurance requires a [id number] follow up visit within a 31-90 day [...] BiPAP supplies. documented in this encounter [facility] 04-30-2022 History of Present illness Narrative Images from the original note were not included. [facility] New Patient Evaluation PATIENT NAME: Noé Jeffery DATE OF SERVICE: April 30, 2022 CONSULTING PROVIDER: Narciso Guerra [address] [facility] [address] REASON FOR CONSULT: Narciso Guerra sends the [...] or near accidents due to drowsy drivin [place] Sleepiness Scale 04/28/2022 Score Incomplete PROMIS CAT [...] will have a prescription sent to a [employer] ([employer]) company - [employer] who will be calling you in the next 1-2 weeks or so. Please call them directly or us if you do not hear from them in this time frame. - You should be eligible for new supplies approximately every 3-6 months, depending on your insurance coverage. - If your mask doesn't fit well, call the [employer] company before 30 days are up to get a new mask without an additional charge. - Insurance requires regular usage and periodic office follow ups for PAP therapy, to continue to cover supplies. - Follow up in 2 months in the office. Recommend scheduling this appointment now to ensure the best time for you. Roosevelt Merlos PGY-4 Sleep fellow [facility] I have supervised and discussed the patient case with the Sleep Medicine Fellow including interviewing the patient in person and have updated the electronic medical record where necessary. I agree with the history, physical, impression and recommendations as documented. Gera Cardona DO, CBSM, ABSM Clinical Staff Sleep Medicine [facility] Neu[facility] [place] [facility] [place] [address] [place] [address] documented in this encounter [facility] 04-26-2022 History of Present illness Narrative Sleep [...] Program (KP): KP was not completed in [facility] by patient and accepted Study type: Split Study-Polysomnogram with CPAP titration Adverse Event: No (If yes create a new abstract) SERS Event: No Comments: Patient was advised to follow up with their ordering provider regarding test results [employer] April 25, 2022 Standing PSG Orders signed in the last 90 days None Future PSG Orders signed in the last 90 days Ordered Auth. provider POLYSOMNOGRAM (PSG) [[id number]] 04/22/22 Narciso Guerra MD Assoc. diagnoses: Cognitive [...] PM 04/25/2022 documented in this encounter [facility] 04-22-2022 History of Present illness Narrative Head and Neck [place] AUDIOLOGIC EVALUATION REPORT Name: Noé Jeffery CCF#: [id number] Date of Service: 04/22/2022 Date of : 1965 Age: [age] year old Referred by: Narciso Guerra [address] [facility] [address] Referred for: Evaluation of the cause of disorder of hearing, tinnitus, or balance. Referral documented: In an order in [facility] Patient's major complaints: Noé reported he feels [...] evaluation of middle ear function. CPT code: 87532 RIGHT EAR: Tympanogram that was flat, with no identifiable peak and reduced TM mobility consistent with a conductive pathology (wax). LEFT EAR: Normal ME pressure and TM compliance (mobility). ACOUSTIC REFLEXES Description of procedure: This test is an objective measure of auditory and facial nerve pathways. CPT code: 95661, 94270 RIGHT EAR PROBE EAR: (ipsi right stimulus [...] bone conduction and speech recognition testing. CPT code:69490 RIGHT EAR: Hearing Sensitivity: Did not test. Word Recognition Score: Did not test. LEFT EAR: Hearing Sensitivity: Did not test. Word Recognition Score: Did not test. RECOMMENDATIONS Medical follow up for removal of bilateral impacted cerumen. Patient will see [facility] today. Hearing Test after #1. Juana Horta, CCC/A Clinical Enterprise Cloud Architect JIMENEZ Abbrev- iation Definition Degree of hearing sensitivity dB range WNL within normal limits WNL 0 - 20 SNHL sensorineural hearing loss Mild 20-40 CHL conductive hearing loss Moderate 40-55 MHL mixed hearing loss Moderately-Severe 55-70 WRS word recognition score Severe 70-90 ME middle ear Profound 90 + TM tympanic membrane documented in this encounter [facility] 04-22-2022 History of Present illness Narrative This note was created using Stylechi. Subjective Noé Jeffery is a 56 year [...] externa of left ear, unspecified type Plan: nlmkmaaa-ijppugjdn-pjjvyxiyiyhka e (CORTISPORIN) 3.5-10,000-1 mg/mL-unit/mL-% otic suspension Use as directed Follow up with PCP if symptoms worsen or do not improve Brenda Blanco APRN.EFRAIN April 22, 2022 documented in this encounter [facility] 04-22-2022 Instructions Brenda Blanco APRN.EFRAIN - 04/22/2022 [...] for swimming. documented in this encounter [facility] 07-27-2020 Note MR#: [id number] [facility] Pt. Name: Noé Jeffery Admitted: 07/24/2020 [...] Ga MD Date Trans: 07/27/2020 03:32 A/patricia DN_JN:[id number] cc: Jae Lopez M.D. [address] [place] [address] [facility] 07-24-2020 Note MR#: [id number] [facility] Pt. Name: Noé Jeffery Admitted: 07/21/2020 [...] Ga MD Date Trans: 07/24/2020 10:00 A/patricia DN_JN:[id number] cc: Jae Lopez M.D. [address] [place] [address] [facility] Evaluation + Plan note No data available for this section [facility] Evaluation + Plan note Future Appointments Appointment Date:06/26/2024 12:00:00 PM Scheduled Provider: Location:[facility] Appointment Type:Surgery FT Appointment Date:07/11/2024 11:15:00 AM Scheduled Provider:Danni Graham MD Location:[facility] Appointment Type:URO Office Visit [facility] Evaluation + Plan note Future Appointments Appointment Date:07/11/2024 11:15:00 AM Scheduled Provider:Danni Graham MD Location:[facility] Appointment Type:URO Office Visit [facility] Evaluation note Diagnosis Bilateral impacted cerumen- Primary Impacted cerumen Elevated blood pressure reading without diagnosis of hypertension Acute otitis externa of left ear, unspecified type [facility] Diagnosis Bilateral impacted cerumen- Primary Impacted cerumen [facility] Diagnosis Sleep apnea, unspecified type- Primary Sleep hypopnea Other sleep disturbances [facility] [place] [facility] Diagnosis SHELBY (obstructive sleep apnea)- Primary Obstructive sleep apnea (adult) (pediatric) [facility] [place] [facility] Diagnosis Memory loss [facility] [place] [facility] Diagnosis Memory loss- Primary [facility] [place] [facility]* Diagnosis Memory loss- Primary Encounter for lumbar puncture [facility] this [facility] [place] [facility]* Diagnosis Alzheimer's disease (HCC)- Primary Alzheimer's disease [facility] [place] [facility]* Diagnosis Obstructive sleep apnea- Primary Obstructive sleep apnea (adult) (pediatric) Primary central sleep apnea Hyperlipidemia, unspecified hyperlipidemia type [facility] [place] [facility]* Diagnosis Alzheimer's disease (HCC)- Primary Alzheimer's disease [facility] [place] [facility]* Diagnosis Research study patient- Primary [facility] [place] [facility]* Diagnosis Cognitive changes Other signs and symptoms involving cognition [facility] [place] [facility]* Diagnosis Alzheimer's disease (HCC) Alzheimer's disease documented in this encounter [facility] note* Diagnosis Alzheimer's disease (HCC) Alzheimer's disease [facility] [place] noteNo assessment information [facility] Work Phone: Evaluation note* Diagnosis Dementia with behavioral disturbance (CMS-HCC)- Primary Dementia with behavioral disturbance (CMS-HCC) Status post colostomy, follow-up exam (CMS-HCC) Follow-up examination, following unspecified surgery Altered mental status Status post colostomy, follow-up exam (CMS-HCC) Follow-up examination, following unspecified surgery [facility] No data available for this section [facility] [place] InstructionsNot on filedocumented in this encounter [facility] No data available for this section [facility] [place] reason for visit Narrative* Auth/Cert (Routine) Specialty Diagnoses / Procedures Referred By Naseem araujo Referred To Contact Diagnoses Dementia with behavioral disturbance (CMS-HCC) At risk for long QT syndrome Altered mental status Altered Mental Status Nichol Heath MD [address] [place] [address], [address] [place] [address] Phone: tel: fax: Referral ID Status Reason Start Date Expiration Date Visits Re quested Visits Authorized [id number] 1 1 [employer] Summary Purpose Family History No Family History [...] CONSULT TO SLEEP MEDICINE - ADULT OFFICE/OUTPATIENT [facility] 60-74 MINUTES Narciso Guerra MD [address] [place] [address] Referral ID Status Reason Start Date Expiration Date Visits Requested Visits Authorized [id number] Authorized PCP Requested Referral 04/28/2022 04/28/2023 1 1 Specialty Diagnoses / Procedures Referred By Contac t Referred To Contact [facility] Diagnoses Alzheimer's disease (HCC) Procedures CONSULT TO SPEECH THERAPY OFFICE/OUTPATIENT [facility] 60-74 MINUTES Lorri Plascencia MD [address] [place] [address] [place] [address] Referral ID Status Reason Start Date Expiration Date Visits Requested Visits Authorized [id number] Pending Review Auto-Generat ed Referral 11/17/2022 11/17/2023 1 1 Specialty Diagnoses / Procedures Referred By Davidac t Referred To Contact [facility] Diagnoses Cognitive changes Procedures MRI 3D POST PROCESSING 3D RENDERING W/INTERP&POSTPROC [place] [address] [place] [address] [facility] [place] [address] Referral ID Status Reason Start Date Expiration Date V isits Requested Visits Authorized [id number] Closed Auto-Generate d Referral 04/22/2022 05/22/2023 1 1 Specialty Diagnoses / Procedures Referred By Davidac t Referred To Contact MR IMAGING Diagnoses Cognitive changes Procedures MRI BRAIN WO IVCON MRI BRAIN BRAIN STEM W/O CONTRAST MATERIAL Narciso Guerra MD [address] [place] [address] Mr Imaging [id number] Referral ID Status Reason Start Date Expiration Date V isits Requested Visits Authorized [id number] Closed Auto-Generate d Referral 04/22/2022 06/06/2022 1 [...] and content) DATE CREATED AUTHOR 04/15/2021 [facility] DATE CREATED AUTHOR AUTHOR'S ORGANIZ ATION 05/09/2022 [facility] DATE CREATED AUTHOR AUTHOR'S ORGANIZ ATION 10/28/2022 [facility] DATE CREATED AUTHOR AUTHOR'S ORGANIZ ATION 06/28/2024 [facility] DATE CREATED AUTHOR AUTHOR'S ORGANIZ ATION 07/01/2024 [facility] DATE CREATED AUTHOR AUTHOR'S ORGANIZ ATION 07/04/2024 [facility] DATE CREATED AUTHOR AUTHOR'S ORGANIZ ATION 07/11/2024 [facility] DATE CREATED AUTHOR AUTHOR'S ORGANIZ ATION 07/22/2024 [facility] DATE CREATED AUTHOR AUTHOR'S ORGANIZ ATION 07/28/2024 [facility] DATE CREATED AUTHOR AUTHOR'S ORGANIZ ATION 07/31/2024 [facility] DATE CREATED AUTHOR AUTHOR'S ORGANIZ ATION 08/05/2024 [facility] Source Comments (unrecognize d section and content) In the event this informatio n is protected by the Federal Confidentiality of Alcohol and Drug Abuse Patient Records regulations: The Federal rules restrict any use of the information to criminally investigate or prosecute any alcohol or drug abuse patient.[facility] the event this information is protected by the Federal Confidentiality of Alcohol and Drug Abuse Patient Records regulations: The Federal rules restrict any use of the information to criminally investigate or prosecute any alcohol or drug abuse patient.[facility] the event this information is protected by the Federal Confidentiality of Alcohol and Drug Abuse Patient Records regulations: The Federal rules restrict any use of the information to criminally investigate or prosecute any alcohol or drug abuse patient.[facility] the event this information is protected by the Federal Confidentiality of Alcohol and Drug Abuse Patient Records regulations: The Federal rules restrict any use of the information to criminally investigate or prosecute any alcohol or drug abuse patient.[facility] the event this information is protected by the Federal Confidentiality of Alcohol and Drug Abuse Patient Records regulations: The Federal rules restrict any use of the information to criminally investigate or prosecute any alcohol or drug abuse patient.[facility] the event this information is protected by the Federal Confidentiality of Alcohol and Drug Abuse Patient Records regulations: The Federal rules restrict any use of the information to criminally investigate or prosecute any alcohol or drug abuse patient.[facility] the event this information is protected by the Federal Confidentiality of Alcohol and Drug Abuse Patient Records regulations: The Federal rules restrict any use of the information to criminally investigate or prosecute any alcohol or drug abuse patient.[facility] the event this information is protected by the Federal Confidentiality of Alcohol and Drug Abuse Patient Records regulations: The Federal rules restrict any use of the information to criminally investigate or prosecute any alcohol or drug abuse patient.[facility] the event this information is protected by the Federal Confidentiality of Alcohol and Drug Abuse Patient Records regulations: The Federal rules restrict any use of the information to criminally investigate or prosecute any alcohol or drug abuse patient.[facility] the event this information is protected by the Federal Confidentiality of Alcohol and Drug Abuse Patient Records regulations: The Federal rules restrict any use of the information to criminally investigate or prosecute any alcohol or drug abuse patient.[facility] the event this information is protected by the Federal Confidentiality of Alcohol and Drug Abuse Patient Records regulations: The Federal rules restrict any use of the information to criminally investigate or prosecute any alcohol or drug abuse patient.[facility] the event this information is protected by the Federal Confidentiality of Alcohol and Drug Abuse Patient Records regulations: The Federal rules restrict any use of the information to criminally investigate or prosecute any alcohol or drug abuse patient.[facility]In the event this information is protected by the Federal Confidentiality of Alcohol and Drug Abuse Patient Records regulations: The Federal rules restrict any use of the information to criminally investigate or prosecute any alcohol or drug abuse patient.[facility] the event this information is protected by the Federal Confidentiality of Alcohol and Drug Abuse Patient Records regulations: The Federal rules restrict any use of the information to criminally investigate or prosecute any alcohol or drug abuse patient.[facility] the event this information is protected by the Federal Confidentiality of Alcohol and Drug Abuse Patient Records regulations: The Federal rules restrict any use of the information to criminally investigate or prosecute any alcohol or drug abuse patient.[facility] the event this information is protected by the Federal Confidentiality of Alcohol and Drug Abuse Patient Records regulations: The Federal rules restrict any use of the information to criminally investigate or prosecute any alcohol or drug abuse patient.[facility] the event this information is protected by the Federal Confidentiality of Alcohol and Drug Abuse Patient Records regulations: The Federal rules restrict any use of the information to criminally investigate or prosecute any alcohol or drug abuse patient.[facility] the event this information is protected by the Federal Confidentiality of Alcohol and Drug Abuse Patient Records regulations: The Federal rules restrict any use of the information to criminally investigate or prosecute any alcohol or drug abuse patient.[facility] the event this information is protected by the Federal Confidentiality of Alcohol and Drug Abuse Patient Records regulations: The Federal rules restrict any use of the information to criminally investigate or prosecute any alcohol or drug abuse patient.[facility] HospitalIn the event this information is protected by the Federal Confidentiality of Alcohol and Drug Abuse Patient Records regulations: The Federal rules restrict any use of the information to criminally investigate or prosecute any alcohol or drug abuse patient.[facility] HospitalIn the event this information is protected by the Federal Confidentiality of Alcohol and Drug Abuse Patient Records regulations: The Federal rules restrict any use of the information to criminally investigate or prosecute any alcohol or drug abuse patient.[facility] the event this information is protected by the Federal Confidentiality of Alcohol and Drug Abuse Patient Records regulations: The Federal rules restrict any use of the information to criminally investigate or prosecute any alcohol or drug abuse patient.[facility] the event this information is protected by the Federal Confidentiality of Alcohol and Drug Abuse Patient Records regulations: The Federal rules restrict any use of the information to criminally investigate or prosecute any alcohol or drug abuse patient.[facility] the event this information is protected by the Federal Confidentiality of Alcohol and Drug Abuse Patient Records regulations: The Federal rules restrict any use of the information to criminally investigate or prosecute any alcohol or drug abuse patient.[facility] the event this information is protected by the Federal Confidentiality of Alcohol and Drug Abuse Patient Records regulations: The Federal rules restrict any use of the information to criminally investigate or prosecute any alcohol or drug abuse patient.[facility]In the event this information is protected by the Federal Confidentiality of Alcohol and Drug Abuse Patient Records regulations: The Federal rules restrict any use of the information to criminally investigate or prosecute any alcohol or drug abuse patient.[facility]In the event this information is protected by the Federal Confidentiality of Alcohol and Drug Abuse Patient Records regulations: The Federal rules restrict any use of the information to criminally investigate or prosecute any alcohol or drug abuse patient.[facility]In the event this information is protected by the Federal Confidentiality of Alcohol and Drug Abuse Patient Records regulations: The Federal rules restrict any use of the information to criminally investigate or prosecute any alcohol or drug abuse patient.[facility]In the event this information is protected by the Federal Confidentiality of Alcohol and Drug Abuse Patient Records regulations: The Federal rules restrict any use of the information to criminally investigate or prosecute any alcohol or drug abuse patient.[facility] Reason for Visit (unrecogniz ed section and content) Reason Comments Earwax Bilateral ear Specialty Diagnoses / Procedures Referred By Contac t Referred To Contact Diagnoses Bilateral hearing loss, unspecified hearing loss type Procedures HEARING TEST/AUDIOGRAM COMPRE AUDIOMETRY THRESHOLD [place] [address] [place] [address] [facility] [address] [place] [address] Referral ID Status Reason Start Date Expiration Date V isits Requested Visits Authorized [id number] Closed Auto-Generate d Referral 04/22/2022 07/21/2022 1 1 Reason Comments New Patient Evaluation Had sleep study d one. Specialty Diagnoses / Procedures Referred By Contac t Referred To Contact Diagnoses Sleep apnea, unspecified type Sleep hypopnea Procedures CONSULT TO SLEEP MEDICINE - ADULT OFFICE/OUTPATIENT [facility] MDM 60-74 MINUTES Narciso Guerra MD [address] [place] [address] Referral ID Status Reason Start Date Expiration Date V isits Requested Visits Authorized [id number] Closed PCP Requested Referral 04/28/2022 04/28/2023 1 1 Reason Comments Memory Loss Specialty Diagnoses / Procedures Referred By Contac t Referred To Contact Neurology Diagnoses Memory loss Procedures CONSULT TO NEUROLOGY OFFICE/OUTPATIENT [facility] MDM 60-74 MINUTES Narciso Guerra MD [address] [place] [address] Referral ID Status Reason Start Date Expiration Date V isits Requested Visits Authorized [id number] Closed PCP Requested Referral 06/22/2022 06/22/2023 1 [...] STEM W/O CONTRAST MATERIAL Narciso Guerra MD [facility] [place] [id number] [place] [address] Referral ID Status Reason Start Date Expiration Date V isits Requested Visits Authorized [id number] Closed Auto-Generate d Referral 04/22/2022 06/06/2022 1 [...] March 15, 2024 End: March 15, 2024 Fire Prevention Research Engineer Relationship Specialty Start Date End Date Jae Lopez MD PCP - General 03/27/18 Fire Prevention Research Engineer Relationship Specialty Start Date End Date Jae [...] whole-do not crush or chew. Although the order tracer does not recommend opening the capsule, the [...] BE BASED ON THE PRIMARY CLINICAL RECORDS. [facility]. provides no warranty or guarantee of the accuracy or completeness of information in this document.
[2024-08-10] MEDS: DIAZEPAM 10 MG/2 ML SYRINGE 2 MG IV (03:16)
[2024-08-10 05:59] LABS: Basophils Percent Auto 0.5 % (0.2-2.0); Eosinophils Absolute Auto 0.1 10^3/uL (0.0-0.7); Eosinophils Percent Auto 1.1 % (0.9-7.0); Hematocrit 39.8 % (42.0-54.0); Hemoglobin 12.8 g/dL (14.0-18.0); Immature Granulocytes Abs Auto 0.01 10^3/uL (0.00-0.03); Immature Granulocytes Pct Auto 0.2 % (0.0-0.5); Lymphocytes Absolute Auto 1.8 10^3/uL (1.2-3.8); Lymphocytes Percent Auto 31.8 % (20.5-60.0); Mean Corpuscular HGB Conc 32.2 g/dL (29.9-35.2); Mean Corpuscular Hemoglobin 24.8 pg (25.9-34.0); Mean Corpuscular Volume 77.1 fL (80.0-94.0); Mean Platelet Volume 11.6 fL (9.5-13.5); Monocytes Absolute Auto 0.5 10^3/uL (0.3-0.8); Monocytes Percent Auto 8.1 % (1.7-12.0); Neutrophils Absolute Auto 3.2 10^3/uL (1.4-6.5); Neutrophils Percent Auto 58.3 % (43.0-75.0); Platelet Count 98 10^3/uL (150-450); Red Blood Count 5.16 10^6/uL (4.70-6.10); Red Cell Distribution Width 14.6 % (11.0-15.0); White Blood Count 5.5 10^3/uL (4.0-11.0)
[2024-08-10 06:06] LABS: Alanine Aminotransferase 22 U/L (16-63); Albumin Globulin Ratio 0.8; Albumin Level 2.7 g/dL (3.4-5.0); Alkaline Phosphatase 51 U/L (46-116); Anion Gap 11.4; Aspartate Amino Transferase 25 U/L (15-37); BUN Creatinine Ratio 29.9; Bilirubin Total 0.4 mg/dL (0.2-1.0); Calcium 7.7 mg/dL (8.5-10.1); Carbon Dioxide 27.6 mmol/L (21.0-32.0); Chloride 107 mmol/L (98-107); Estimated GFR (African America >60 (>=60 mL/min/1.73m^2); Estimated GFR (Non-African Ame >60 (>=60 mL/min/1.73m^2); Globulin 3.3 g/dL; Glucose 132 mg/dL (74-106); Sodium 142 mmol/L (136-145)
--- OUTSIDE RECORDS SUMMARY | 2024-08-10 06:49 | XMS_ITS | CCD ---
Author Organization [facility]Sym[facility] Care Team Providers Care Glass Processing Worker Name Role Phone NAYA IZAGUIRRE Admitting Unavailable JOHN JAE Primary Care Unavailable JOHN JAE Referring Unavailable NAYA IZAGUIRRE Attending Unavailable DE Procedure Practitioner Unavailab NAYA oWlf Surgeon Unavailable JAE LOPEZ Primary Care Unavailable SELF, REFERRED Referring Unavailable WILLAM IZAGUIRREIN Attending Unavailable ZINA JIASULTANAIN Admitting Unavailable DE Procedure Practitioner Unavailab WILLAM WolfIN Surgeon Unavailable [...] Care Physician MD Danni Graham Attending Provider [phone] MD Jae Lopez Primary Care Provider [phone] MAITE MORRIS Attending Unavailable JAE LOPEZ [...] Unavailable Jae Lopez MD Primary Care Provider [phone] Danni Graham. Attending Unavailable Lue, Danni M. [...] Date of Onset Reaction(s) Facility (1 source) 14114,00 Drug allergy (disorder) 9 [facility] Repository (4 sources) diphenhydrAMINE ; Translations: [DIPHENHYDRAMIN E] Drug Allergy 5 Abnormal Behavior [facility] Repository (1 source) No Known Medication Allergies; Translations: [No Known Medication Allergies] Propensity to adverse reactions (disorder) [facility] Repository Medications Current Medications Medication Drug [...] information. docusate sodium 50 mg / sennosides, longterm 8.6 mg oral tablet (1 source) Start: [...] / neomycin 3.5 mg/ml / polymyxin b 45641 unt/ml otic suspension (3 sources) Aminoglycoside Antibacterial, [...] hydrochloride 5 mg oral tablet (17 sources) M-nvygit-S-aspartate Receptor Antagonist Start: 11-17-2022 take 1 tablet [...] Test Name Value Interpretation Reference Range Facility [facility] 07-20-2024 [facility] Telephone (YOSELYN) NOÉ JEFFERY ([id number]) 1965 M Date Time Provider Department 07/20/24 [...] our network. Referring MD will confirm with skilled nursing case manager that referrals were sent to all 3. If the patient is discharged home or to SNF, we can potentially expedite an appointment with our PMR colleagues/TBI multidisciplinary clinic. I will alert Drs. Aguilar and Earl to the referral. Briana Mcdermott MD Allergies As of Date: 07/20/2024 (No Known Allergies) Date Reviewed: 10/12/2022 Reviewed by: Miguelito Chicas APRN.STOREHOUSE CLERK - Fully Assessed Prescriptions as of 07/20/2024 [...] Encounter Status:Closed by BRIANA MCDERMOTT on 07/20/24 [facility] Patient Letter FTon 2024 Patient Letter [facility] Patient Letter [facility] July 20, 2024DecNOÉ JEFFERY [address] [place] [id number] : 1965 Dear Mr. Jeffery, I am [...] Office Sincerely, Dr. Danni Graham [facility] [address] [place] [address] [facility] TANNER Virus Antibody Reflex to Inhibition Assayon 07-19-2024 Interpretation and review of laboratory results Abnormal Qzzr [facility] TANNER virus Ab IA Ql Positive [facility] Comment on above: NOTE Index [...] index.(1) (1) TYSABRI(natalizumab)US Prescribing Information Performed by: [facility] [address] [place] [address] Jessenia Bagley MD, PhD, TANNER Virus Index 2.94 [facility] Comment on above: NOTE Performed by: [employer] [facility] [address] [place] [address] Jessenia Bagley MD, PhD, [facility] Marjorie 07-18-2024 CNPN Telephone (NEIND4) NOÉ JEFFERY ([id number]) 1965 M Date Time Provider Department 07/18/24 NARCISO GUERRA NEIND4 During your visit today, we recorded the following information about you: Benoit Gaby 07/18/2024 9:22 AM Signed Patient returned your call and can be reached at: Call patient at: on cell [phone] (home) [phone] (cell) Abbey Amato MA 07/18/2024 11:23 AM Signed Patient mailbox is full unable to leave message Nica Holland RN 07/19/2024 12:42 PM Signed Spoke with Dr Harmon (sp?) from [facility] regarding patient. Family is requesting transfer to a [facility] TBI center, inpatient. I advised that Dr Guerra cannot assist in this matter. Marichuy Roca, MARCI 07/20/2024 3:19 PM Addendum Spoke to , Kari. Pt is currently at [facility]. Pt is being denied an admit to rehab facility. I am unable to view notes from that hospital. Suggestion given to try [facility] as [facility] does not have a TBI clinic. Family will have to work with staff at [facility]. Verbalized understanding. Allergies As of Date: 07/18/2024 (No Known Allergies) Date Reviewed: 10/12/2022 Reviewed by: Miguelito Chicas, SYD.STOREHOUSE CLERK - Fully Assessed Reason for Visit: Patient Question [9177] Prescriptions as of 07/20/2024 - donepezil (ARICEPT) [...] Status:Closed by MARICHUY ROCA on 07/20/24 Normal [facility] BASIC METABOLIC PANLon 07-17 Anion gap [Moles/Vol] 4 mmol/L Low 5-15 [facility] Comment on above: Performed By: #### T HYR, CBC, BMP, #### [facility] ([id number]) [address], [address] [place] [address] Calcium [Mass/Vol] 8.8 mg/dL Normal 8.5-10.5 [facility] Comment on above: Performed By: #### T HYR, CBC, BMP, 2776-06, #### [facility] ([id number]) [address], [address] [place] [address] Chloride [Moles/Vol] 104 mmol/L Normal 98-109 [facility] Comment on above: Performed By: #### T HYR, CBC, BMP, #### [facility] ([id number]) [address], [address] [place] [address] CO2 [Moles/Vol] 33 mmol/L High 22-32 [facility] Comment on above: Performed By: #### T HYR, CBC, BMP, 2776-06, #### [facility] ([id number]) [address], [address] [place] [address] Creatinine [Mass/Vol] 0.95 mg/dL Normal 0.60-1.30 [facility] Comment on above: Result Comment: METH OD TRACEABLE TO IDMS STANDARD Performed By: #### T HYR, CBC, BMP, 2776-06, #### [facility] ([id number]) [address], [address] [place] [address] eGFR (CKD-EPI) NON-RACE DEPENDENT >90 Normal >59 [facility] Comment on above: Result Comment: Reported eGFR is based on the CKD-EPI 2020 equation that does not use a race coefficient. Performed By: #### T HYR, CBC, BMP, 2776-06, #### [facility] ([id number]) [address], [address] [place] [address] Glucose [Mass/Vol] 97 mg/dL Normal 65-99 [facility] Comment on above: Performed By: #### T HYR, CBC, BMP, 2776-06, #### [facility] ([id number]) [address], [address] [place] [address] Potassium [Moles/Vol] 4.3 mmol/L Normal 3.5-5.0 [facility] Comment on above: Performed By: #### T HYR, CBC, BMP, 2776-06, #### [facility] ([id number]) [address], [address] [place] [address] Sodium [Moles/Vol] 141 mmol/L Normal 134-146 [facility] Comment on above: Performed By: #### T HYR, CBC, BMP, 2776-06, #### [facility] ([id number]) [address] [place] [address] Urea nitrogen [Mass/Vol] 20 mg/dL Normal 5-23 [facility] Comment on above: Performed By: #### T HYR, CBC, BMP, 2776-06, #### [facility] ([id number]) [address] [place] [address] Basic Metabolic Panelon - Anion gap [Moles/Vol] 4 mmol/L Low 5 - 15 mmol/L [facility] Calcium [Mass/Vol] 8.8 mg/dL 8.5 - 10. 5 mg/dL [facility] Chloride [Moles/Vol] 104 mmol/L 98 - 10 9 mmol/L [facility] CO2 [Moles/Vol] 33 mmol/L High 22 - 32 mmol/L [facility] Creatinine [Mass/Vol] 0.95 mg/dL 0.60 - 1.30 mg/dL [facility] Comment on above: METHOD TRACEABLE TO IDID STANDARD eGFR (CKD-EPI)non-race dependent - PINF [facility] Comment on above: Reported eGFR is based on the CKD-EPI 2020 equation that does not use a race coefficient. Glucose [Mass/Vol] 97 mg/dL 65 - 99 mg/dL [facility] Interpretation and review of laboratory results Abnormal [facility] Potassium [Moles/Vol] 4.3 mmol/L 3.5 - 5.0 mmol/L [facility] Sodium [Moles/Vol] 141 mmol/L 134 - 146 mmol/L [facility] Urea nitrogen [Mass/Vol] 20 mg/dL 5 - 23 mg/dL [facility] CBC AND AUTO DIFFon 07-17-19 25 ABSOLUTE BASOPHIL 0.0 X10E9/L Normal 0.0-0.2 [facility] Comment on above: Performed By: #### T HYR, CBC, BMP, 2776-06, 81090-2 #### [facility] ([id number]) [address], [address] [place] [address] ABSOLUTE NEUTROPHIL 2.5 X10E9/L Normal 1.5-6.6 [facility] Comment on above: Performed By: #### T HYR, CBC, BMP, 2776-06, #### [facility] ([id number]) [address], [address] [place] [address] Basophils/100 WBC (Bld) 0.6 % Normal [facility] Comment on above: Performed By: #### T HYR, CBC, BMP, 2776-06, #### [facility] ([id number]) [address], [address] [place] [address] Eosinophils (Bld) [#/Vol] 0.1 10*3/uL Normal 0.0-0.4 [facility] Comment on above: Performed By: #### T HYR, CBC, BMP, 2776-06, #### [facility] ([id number]) [address], [address] [place] [address] Eosinophils/100 WBC (Bld) 1.9 % Normal [facility] Comment on above: Performed By: #### T HYR, CBC, BMP, 2776-06, #### [facility] ([id number]) [address], [address] [place] [address] Erythrocyte distribution width (RBC) [Ratio] 15.8 % High 11.5-15.0 [facility] Comment on above: Performed By: #### T HYR, CBC, BMP, 2776-06, #### [facility] ([id number]) [address], [address] [place] [address] Hematocrit (Bld) [Volume fraction] 41.8 % Normal 39-49 [facility] Comment on above: Performed By: #### T HYR, CBC, BMP, 2776-06, #### [facility] ([id number]) [address], [address] [place] [address] Hemoglobin (Bld) [Mass/Vol] 13.9 g/dL Normal 13.0-17.0 [facility] Comment on above: Performed By: #### T HYR, CBC, BMP, 2776-06, #### [facility] ([id number]) [address], [address] [place] [address] Lymphocytes (Bld) [#/Vol] 1.2 10*3/uL Normal 1.0-3.5 [facility] Comment on above: Performed By: #### T HYR, CBC, BMP, 2776-06, #### [facility] ([id number]) [address], [address] [place] [address] Lymphocytes/100 WBC (Bld) 29.7 % Normal [facility] Comment on above: Performed By: #### T HYR, CBC, BMP, 2776-06, #### [facility] ([id number]) [address], [address] [place] [address] MCH (RBC) [Entitic mass] 25.1 pg Low 27-34 [facility] Comment on above: Performed By: #### T HYR, CBC, BMP, 2776-06, #### [facility] ([id number]) [address], [address] [place] [address] MCHC (RBC) [Mass/Vol] 33.2 g/dL Normal 32-36 [facility] Comment on above: Performed By: #### T HYR, CBC, BMP, 2776-06, #### [facility] ([id number]) [address], [address] [place] [address] MCV (RBC) [Entitic vol] 76 fL Low 80-100 [facility] Comment on above: Performed By: #### T HYR, CBC, BMP, 2776-06, #### [facility] ([id number]) [address], [address] [place] [address] Monocytes (Bld) [#/Vol] 0.3 10*3/uL Normal 0-0.9 [facility] Comment on above: Performed By: #### T HYR, CBC, BMP, 2776-06, #### [facility] ([id number]) [address], [address] [place] [address] Monocytes/100 WBC (Bld) 8.2 % Normal [facility] Comment on above: Performed By: #### T HYR, CBC, BMP, 2776-06, #### [facility] ([id number]) [address], [address] [place] [address] Neutrophils/100 WBC (Bld) 59.6 % Normal [facility] Comment on above: Performed By: #### T HYR, CBC, BMP, 2776-06, #### [facility] ([id number]) [address], [address] [place] [address] Platelet mean volume (Bld) [Entitic vol] 7.7 fL Normal 7-12 [facility] Comment on above: Performed By: #### T HYR, CBC, BMP, 2776-06, #### [facility] ([id number]) [address], [address] [place] [address] Platelets (Bld) [#/Vol] 180 10*3/uL Normal 150-450 [facility] Comment on above: Performed By: #### T HYR, CBC, BMP, 2776-06, #### [facility] ([id number]) [address], [address] [place] [address] RBC COUNT 5.54 X10E12/L Normal 4.10-5.70 [facility] Comment on above: Performed By: #### T HYR, CBC, BMP, 7-, #### [facility] ([id number]) [address], [address] [place] [address] WBC (Bld) [#/Vol] 4.1 10*3/uL Normal 4.0-11.0 [facility] Comment on above: Performed By: #### T HYR, CBC, BMP, 7-, #### [facility] ([id number]) [address] [facility] [facility] [place] [address] CBC auto differentialon 06-21 Basophils (Bld) [#/Vol] 0 10*3/uL [facility] Basophils/100 WBC (Bld) 0.6 % [facility] Eosinophils (Bld) [#/Vol] 0.1 10*3/uL [facility] Eosinophils/100 WBC (Bld) 1.9 % [facility] Erythrocyte distribution width (RBC) [Ratio] 15.8 % High 11.5 - 15.0 % [facility] Hematocrit (Bld) [Volume fraction] 41.8 % 39 - 49 % [facility] Hemoglobin (Bld) [Mass/Vol] 13.9 g/dL 13.0 - 17.0 g/dL [facility] Interpretation and review of laboratory results Abnormal [facility] Lymphocytes (Bld) [#/Vol] 1.2 10*3/uL [facility] Lymphocytes/100 WBC (Bld) 29.7 % [facility] MCH (RBC) [Entitic mass] 25.1 pg Low 27 - 34 pg [facility] MCHC (RBC) [Mass/Vol] 33.2 g/dL 32 - 3 6 g/dL [facility] MCV (RBC) [Entitic vol] 76 fL Low 80 - 100 fL [facility] Monocytes (Bld) [#/Vol] 0.3 10*3/uL [...] CNPNon 07-17-2024 CNPN Telephone (NEIND4) NOÉ JEFFERY ([id number]) 1965 M Date Time Provider Department 07/17/24 NARCISO GUERRA During your visit today, we recorded the following information about you: Laboy Gaby 07/17/2024 2:37 PM Signed Pt keila and is in [facility] and is requesting help with getting pt transferred to a [facility] Please call pts [phone] Nica Holland, MARCI 07/18/2024 8:58 AM Signed -LVMTCB We are unable to assist in this matter. Pt last seen 04/2022 Allergies As of Date: 07/17/2024 (No Known Allergies) Date Reviewed: 10/12/2022 Reviewed by: Miguelito Chicas APRN.STOREHOUSE CLERK - Fully Assessed Reason for Visit: Patient Question [5806] Prescriptions as of 07/18/2024 - donepezil (ARICEPT) [...] Status:Closed by NICA HOLLAND on 07/18/24 Normal [facility] Encephalopathy - Autoimmune Eval, RUSSELLon 07-17-2024 Encephalopathy autoimmune Ab panel (CSF) SEE COMMENTS 07/17/2024 05:00 PM [employer] Comment on above: NOTE Test Result Flag [...] developed and its performance characteristics determined by [facility] in a manner consistent with CLIA requirements. This test has not been cleared or approved by the U.S. Food and Drug Administration. Amphiphysin Ab, CSF Negative Negative ADDITIONAL INFORMATION This test was developed and its performance characteristics determined by [facility] in a manner consistent with CLIA requirements. This test has not been cleared or approved by the U.S. Food and Drug Administration. LETYA-1, CSF Negative Negative ADDITIONAL INFORMATION This test was developed and its performance characteristics determined by [facility] in a manner consistent with CLIA requirements. This test has not been cleared or approved by the U.S. Food and Drug Administration. MARKEL-1, CSF Negative Negative ADDITIONAL INFORMATION This test was developed and its performance characteristics determined by [facility] in a manner consistent with CLIA requirements. This test has not been cleared or approved by the U.S. Food and Drug Administration. MARKEL-2, CSF Negative Negative ADDITIONAL INFORMATION This test was developed and its performance characteristics determined by [facility] in a manner consistent with CLIA requirements. This test has not been cleared or approved by the U.S. Food and Drug Administration. MARKEL-3, CSF Negative Negative ADDITIONAL INFORMATION This test was developed and its performance characteristics determined by [facility] in a manner consistent with CLIA requirements. This test has not been cleared or approved by the U.S. Food and Drug Administration. CASPR2-IgG CBA, CSF Negative Negative ADDITIONAL INFORMATION This test was developed and its performance characteristics determined by [facility] in a manner consistent with CLIA requirements. This test has not been cleared or approved by the U.S. Food and Drug Administration. CRMP-5-IgG, CSF Negative Negative ADDITIONAL INFORMATION This test was developed and its performance characteristics determined by [facility] in a manner consistent with CLIA requirements. This test has not been cleared or approved by the U.S. Food and Drug Administration. DPPX Ab CBA, CSF Negative Negative ADDITIONAL INFORMATION This test was developed and its performance characteristics determined by [facility] in a manner consistent with CLIA requirements. This test has not been cleared or approved by the U.S. Food and Drug Administration. NICOLE-B-R Ab CBA, CSF Negative Negative ADDITIONAL INFORMATION This test was developed and its performance characteristics determined by [facility] in a manner consistent with CLIA requirements. This test has not been cleared or approved by the U.S. Food and Drug Administration. GAD65 Ab Assay, CSF 0.00 nmol/L <= 0.02 ADDITIONAL INFORMATION This test was developed and its performance characteristics determined by [facility] in a manner consistent with CLIA requirements. This test has not been cleared or approved by the U.S. Food and Drug Administration. GFAP IFA, CSF Negative Negative ADDITIONAL INFORMATION This test was developed and its performance characteristics determined by [facility] in a manner consistent with CLIA requirements. This test has not been cleared or approved by the U.S. Food and Drug Administration. mGluR1 Ab IFA, CSF (more content not included)... Encephalopathy autoimmune Ab panel (CSF)on 07-17-2024 [facility] MAGNESIUMon 07-17-2024 Magnesium [Mass/Vol] 2.2 mg/dL Normal 1.8-2.6 [facility] Comment on above: Performed By: #### T HYR, CBC, BMP, 2777-1, 17543-6 #### [facility] ([id number]) [address] [facility] [address] [place] [address] Magnesiumon 07-17-2024 Magnesium [Mass/Vol] 2.2 mg/dL 1.8 - 2 .6 mg/dL [facility] No Panel Informationon 07-17 [facility] Bacteria identified Cx Nom ( CSF)on 07-15-2024 Microscopic observation Gram stain Nom (Unsp spec) WHITE BLOOD CELLS PRESENT [facility] Microscopic observation Gram stain Nom (Unsp spec) NO ORGANISMS SEEN [facility] Microscopic observation Gram stain Nom (Unsp spec) ON CONCENTRATED SMEAR [facility] Service comment (Unsp spec) [Interp] NO GROWTH 5 DAYS [facility] Flow Cytometry CSFon 025 Flow cytometry specialist review Ramone (Unsp spec) [Interp] SEE SEPARATE REPORT, REVIEWED BY PATHOLOGIST [facility] Flow cytometry specialist re view Ramone (Unsp spec) [Interp]on 2024 [facility] Lyme ELIGIBILITY SUPERVISOR Infection IgG w/ An tibody Index Reflex, CSF and Serumon 07-13-2024 Pathologist interpretation (Bld) [Interp] See Note [facility] Comment on above: NOTE No [...] developed and its performance characteristics determined by [facility] in a manner consistent with CLIA requirements. This test has not been cleared or approved by the U.S. Food and Drug Administration. Reference Lab Test ID Negative Negative [facility] Reference Lab Test ID See Note [facility] Comment on above: NOTE CSF screen was negative for IgG-class antibodies to Lyme Borrelia species. Testing for IgG-class antibodies to Borrelia in serum is not indicated and was not performed. Test Performed by: [facility] [address] [place] [address] Fence Gate Assembler: Eduardo Clark Ph.D.; CLIA# [id number] [facility] Cytologyon 07-11-2024 [facility] [address] [place] [address] Cytology Consultation Patient Name:NOÉ JEFFERY:1965 (Age: 58)Gender:MTaken:06/21Reported:2024 16:49Physician(s):Shun Haley M.D. ([phone])Copy To:Quinton Harrell M.D. Rec. #:[id number]: #[id number] Final Cytologic Diagnosis Cerebrospinal fluid: No malignant cells identified. 07/11/2024 Interpretation performed [place] [address], License number: [id number].Electro nically Signed Out By Derick Lorenz MD Additional Report(s): Flow Cytometry-Surg/BM/NG Date Reported: 07/13/2024 No flow cytometric abnormalities. The specimen is hypocellular with a sparse lymphoid component. Immunophenotypic analysis of the lymphoid cells demonstrates a mixed population of few phenotypically unremarkable T-cells and polyclonal B-cells. No monoclonal lymphoid population is detected. Immunophenotyping antibodies tested: CD3, CD4, CD5, CD7, CD8, CD19, CD20, CD45, Natalia, and Lambda. Immunophenotyping Comment: Immunophenotyping has been used in this diagnostic evaluation. This test was developed and its performance characteristics determined by the [facility] Department. It has not been [...] perform high-complexity clinical testing. Interpretation performed at [facility], [address] [place] [address], License number: [id number]. 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 Also received is one cytospin slide from Hematology. Source of Specimen Cerebrospinal fluid Non [employer]PERT MEDICAL WRITER ThinPrep, Cytospin Slide Fee Code(s): 1; 77564, [address] [facility] IgG synthesis rate Calc (S+C SF) [Mass/Time]on 07-11-2024 CSF IgG Index Profile SEE COMMENTS 07/11/2024 12:55 PM [employer] [facility] Comment on above: NOTE Test Result Flag [...] 3500 - 5000 Test Performed by: [address] [address] Fence Gate Assembler: Eduardo Clark Ph.D.; CLIA# [id number] Test Performed by: [address] [address] Fence Gate Assembler: Eduardo Clark Ph.D.; CLIA# [id number] [facility] Reagin Ab VDRL Ql (CSF)on [facility] VDRL, Spinal Fluidon 025 Reagin Ab VDRL Ql (CSF) Negative Negative [facility] Comment on above: NOTE Test Performed by: [facility] - [address] [address] Fence Gate Assembler: Eduardo Clark Ph.D.; CLIA# [id number] 14-3-3 Protein Tau, Total, C SFon 07-10-2024 Creutzfeldt-Osei Disease SEE NOTE Normal [facility] Comment on above: Result Comment: NOTE CSF [...] thorough examination of autopsy brain tissue. The [facility] is able to offer a no-cost autopsy for this patient. Autopsy can help to delineate whether prion disease is sporadic, acquired or genetic in etiology. [facility] staff ([phone]) are available to work with healthcare providers and the patient's family to plan an autopsy, if desired. Reviewed and Approved By: Tia Weinberg, PhD Performed By: [facility] [address] [facility] Room [address] [id number] Performed By: #### T HYR, CBC, BMP, 2777-1, 27475-9 #### [facility] ([id number]) [address], [address] [place] [address] CSF CULTUREon 07-10-2024 Bacteria identified Cx Nom (CSF) GRAM STAIN WHITE BLOOD CELLS PRESENT NO ORGANISMS SEEN ON CONCENTRATED SMEAR CULTURE RESULTS NO GROWTH 5 DAYS Normal [facility] Comment on above: Performed By: #### T HYR, CBC, BMP, 2777-, 32422-0 #### [facility] ([id number]) [address] [place] [address], [address] [place] [address] CSF spinal fluid cell counto n 07-10-2024 Clarity (CSF) CLEAR [facility] Color (CSF) COLORLESS [facility] Color (Spun CSF) COLORLESS [facility] Differential panel (Dial fld) NUCLEATED CELLS <5/uL; DIFF NOT TESTED [facility] Interpretation and review of laboratory results Abnormal [facility] Laboratory comment Ramone (Report) TUBE 3 [facility] Nucleated cells Manual cnt (CSF) [#/Vol] 0.001 10*3/uL 0 - 5 /uL [facility] RBC Manual cnt (CSF) [#/Vol] 48 /uL High 0 - 1 /uL [facility] Csf total proteinon 07-10-19 25 Protein (CSF) [Mass/Vol] 45 mg/dL 15 - 45 mg/dL [facility] Cytologyon 07-10-2024 Cytology Normal [facility] Comment on above: Result Comment: [facility] [address] [place] [address] Cytology Consultation Patient Name:NOÉ JEFFERY:1965 (Age: 58)Gender:MTaken:07/10/2024Reported:07/11/2024 16:49Physician(s):Arnulfo Haley M.D. ([phone])Copy To:Lonnie Baker M.D. Nichol Heath M.D. Rec. #:[id number]: #[id number] Final Cytologic Diagnosis Cerebrospinal fluid: No malignant cells identified. gr/07/11/2024 [facility], [address] [place] [address], License number: [id number].Electronically Signed Out By Derick Lorenz MD Additional Report(s): Flow Cytometry-Surg/BM/NG Date Reported: 07/13/2024 No flow cytometric abnormalities. The specimen is hypocellular with a sparse lymphoid component. Immunophenotypic analysis of the lymphoid cells demonstrates a mixed population of few phenotypically unremarkable T-cells and polyclonal B-cells. No monoclonal lymphoid population is detected. Immunophenotyping antibodies tested: CD3, CD4, CD5, CD7, CD8, CD19, CD20, CD45, Natalia, and Lambda. Immunophenotyping Comment: Immunophenotyping has been used in this diagnostic evaluation. This test was developed and its performance characteristics determined by the [facility]. It has not been [...] perform high-complexity clinical testing. Interpretation performed at [facility], [address] [place] [address], License number: [id number]. 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 Also received is one cytospin slide from Hematology. Source of Specimen Cerebrospinal fluid Non [employer] MEDICAL WRITER ThinPrep, Cytospin Slide Fee Code(s): 1; 73039, 94258 Encephalopathy autoimmune Ab panel (CSF)on 07-10-2024 ENCEPHALOPATHY-AUTOIM MUNE EVAL - CSF SEE COMMENTS 07/17/2024 05:00 PM Normal [facility] Comment on above: Result Comment: NOTE Test [...] developed and its performance characteristics determined by [facility] in a manner consistent with CLIA requirements. This test has not been cleared or approved by the U.S. Food and Drug Administration. Amphiphysin Ab, CSF Negative Negative ADDITIONAL INFORMATION This test was developed and its performance characteristics determined by [facility] in a manner consistent with CLIA requirements. This test has not been cleared or approved by the U.S. Food and Drug Administration. AGNA-1, CSF Negative Negative ADDITIONAL INFORMATION This test was developed and its performance characteristics determined by [facility] in a manner consistent with CLIA requirements. This test has not been cleared or approved by the U.S. Food and Drug Administration. MARKEL-1, CSF Negative Negative ADDITIONAL INFORMATION This test was developed and its performance characteristics determined by [facility] in a manner consistent with CLIA requirements. This test has not been cleared or approved by the U.S. Food and Drug Administration. MARKEL-2, CSF Negative Negative ADDITIONAL INFORMATION This test was developed and its performance characteristics determined by [facility] in a manner consistent with CLIA requirements. This test has not been cleared or approved by the U.S. Food and Drug Administration. MARKEL-3, CSF Negative Negative ADDITIONAL INFORMATION This test was developed and its performance characteristics determined by [facility] in a manner consistent with CLIA requirements. This test has not been cleared or approved by the U.S. Food and Drug Administration. CASPR2-IgG CBA, CSF Negative Negative ADDITIONAL INFORMATION This test was developed and its performance characteristics determined by [facility] in a manner consistent with CLIA requirements. This test has not been cleared or approved by the U.S. Food and Drug Administration. CRMP-5-IgG, CSF Negative Negative ADDITIONAL INFORMATION This test was developed and its performance characteristics determined by [facility] in a manner consistent with CLIA requirements. This test has not been cleared or approved by the U.S. Food and Drug Administration. DPPX Ab CBA, CSF Negative Negative ADDITIONAL INFORMATION This test was developed and its performance characteristics determined by [facility] in a manner consistent with CLIA requirements. This test has not been cleared or approved by the U.S. Food and Drug Administration. NICOLE-B-R Ab CBA, CSF Negative Negative ADDITIONAL INFORMATION This test was developed and its performance characteristics determined by [facility] in a manner consistent with CLIA requirements. This test has not been cleared or approved by the U.S. Food and Drug Administration. GAD65 Ab Assay, CSF 0.00 nmol/L <= 0.02 ADDITIONAL INFORMATION This test was developed and its performance characteristics determined by [facility] in a manner consistent with CLIA requirements. This test has not been cleared or approved by the U.S. Food and Drug Administration. GFAP IFA, CSF Negative Negative ADDITIONAL INFORMATION This test was developed and its performance characteristics determined by [facility] in a manner consistent with CLIA requirements. This test has not been cleared or approved by the U.S. Food and Drug Administration. mGluR1 Ab IFA, CSF Negative Negative ADDITIONAL INFORMATION This test was developed and its performance characteristics determined by [facility] in a manner consistent with CLIA requirements. This test has not been cleared or approved by the U.S. Food and Drug Administration. IgLON5 CBA, CSF Negative Negative ADDITIONAL INFORMATION This test was developed and its performance characteristics determined by [facility] in a manner consistent with CLIA requirements. This test has not been cleared or approve (more content not included)... Performed By: #### T HYR, CBC, BMP, 458 #### [facility] ([id number]) [address], [address] [place] [address] Flow cytometry specialist re view Ramone (Unsp spec) [Interp]on 07-10-2024 FLOW CYTOMETRY CSF SEE SEPARATE REPORT, REVIEWED BY PATHOLOGIST Normal [facility] Comment on above: Performed By: #### T HYR, CBC, BMP, 2776-06, #### [facility] ([id number]) [address], [address] [place] [address] Glucose (CSF) [Mass/Vol]on 0 07-10-2024 CSF GLUCOSE 66 mg/dL Normal 40-70 [facility] Comment on above: Performed By: #### T HYR, CBC, BMP, 2776-06, #### [facility] ([id number]) [address], [address] [place] [address] Glucose, CSFon 07-10-2024 Glucose (CSF) [Mass/Vol] 66 mg/dL 40 - 70 mg/dL [facility] LYME ELIGIBILITY SUPERVISOR Infection IgG w/ An tibody Index Reflex, CSF and Serumon 07-10-2024 LYME ELIGIBILITY SUPERVISOR IGG INTERP. See Note Normal [facility] Comment on above: Result Comment: NOTE [...] developed and its performance characteristics determined by [facility] in a manner consistent with CLIA requirements. This test has not been cleared or approved by the U.S. Food and Drug Administration. LYME ELIGIBILITY SUPERVISOR IGG, CSF Negative Normal Negative [facility] LYME ELIGIBILITY SUPERVISOR IGG, SERUM See Note Normal [facility] Comment on above: Result Comment: NOTE CSF screen was negative for IgG-class antibodies to Lyme Borrelia species. Testing for IgG-class antibodies to Borrelia in serum is not indicated and was not performed. Test Performed by: [facility] [address] [place] [address] Fence Gate Assembler: Eduardo Clark Ph.D.; CLIA# [id number] Lumbar Punctureon 07-10-2024 Arnulfo Haley MD 07/10/2024 10:01 AM Lumbar Puncture Date/Time: 07/10/2024 9:58 AM Performed by: Arnlufo Haley MD Authorized by: Arnulfo Haley MD [...] to verify the correct patient, procedure, equipment, clinical support specialist and site/side marked as required. Anesthesia: local infiltration Anesthesia: Local Anesthetic: lidocaine 1% without epinephrine Sedation: Patient sedated: yes Lumbar space: L3-L4 interspace Patient's position: left lateral decubitus Opening pressure: 12 cm H2O Fluid appearance: clear Tubes of fluid: 4 Total volume: 17.5 ml Post-procedure: pressure dressing applied and adhesive bandage applied Procedure was completed Complications: none MANUALLY TRANSCRIBED RESULTS [facility] [employer] [facility] MENINGITIS PANELon 5 Meningitis+Encephalit is [...] NEOFORMANS Not detected (qualifier value) Normal NDET [facility] Comment on above: Performed By: #### T HYR, CBC, BMP, 2777-1, 66174-5 #### [facility] ([id number]) [address], [address] [place] [address] MR BRAIN W WO CONTon 025 MR BRAIN W WO CONT MR BRAIN W WO CONT STUDY: MRI brain with without contrast . CLINICAL HISTORY: Mental status change, unknown cause COMPARISON: July 03, 2024 brain MRI from [facility] Procedure: Multiplanar, multisequence imaging performed through [...] and cranio-cervical junction. Flow voids documented in [place] of [place] and dural venous sinuses. No [...] Lu MD on 07/10/2024 11:31 AM Normal [facility] MR Brain WO and W contrast I Von 07-10-2024 STUDY: MRI brain with without contrast . CLINICAL HISTORY: Mental status change, unknown cause COMPARISON: July 03, 2024 brain MRI from [facility] Procedure: Multiplanar, multisequence imaging performed through [...] and cranio-cervical junction. Flow voids documented in [place] of [place] and dural venous sinuses. No [...] COMPARISON: July 03, 2024 brain MRI from [facility] Procedure: Multiplanar, multisequence imaging performed through [...] and cranio-cervical junction. Flow voids documented in [place] of [place] and dural venous sinuses. No [...] Wilson Lu MD on 07/10/2024 11:31 AM [facility] Radiology Study observation (narrative) [facility] MR Brain WO and W contrast I VOrdered By: Wilson Lu on 07-10-2024 [facility] Work Phone: Meningitis+Encephalitis path ogens DNA and RNA panel LILLIANA+non-probe (CSF)on 07-10-2024 C. gattii+neoformans DNA LILLIANA+non-probe Ql (CSF) Not detected Not Detected^No t Detected [facility] CMV DNA LILLIANA+non-probe Ql (CSF) Not detected Not Detected^No t Detected [facility] E. coli K1 DNA LILLIANA+non-probe Ql (CSF) Not detected Not Detected^No t Detected [facility] Enterovirus RNA LILLIANA+non-probe Ql (CSF) Not detected Not Detected^No t Detected [facility] H. influenzae DNA LILLIANA+non-probe Ql (CSF) Not detected Not Detected^No t Detected [facility] HHV 6 DNA LILLIANA+non-probe Ql (CSF) Not detected Not Detected^No t Detected [facility] HSV 1 DNA LILLIANA+non-probe Ql (CSF) Not detected Not Detected^No t Detected [facility] HSV 2 DNA LILLIANA+non-probe Ql (CSF) Not detected Not Detected^No t Detected [facility] L. monocytogenes DNA LILLIANA+non-probe Ql (CSF) Not detected Not Detected^No t Detected [facility] N. meningitidis DNA LILLIANA+non-probe Ql (CSF) Not detected Not Detected^No t Detected [facility] Parechovirus A RNA LILLIANA+non-probe Ql (CSF) Not detected Not Detected^No t Detected [facility] S. agalactiae DNA LILLIANA+non-probe Ql (CSF) Not detected Not Detected^No t Detected [facility] S. pneumoniae DNA LILLIANA+non-probe Ql (CSF) Not detected Not Detected^No t Detected [facility] Specimen source Nom (Body fld) CEREBROSPINAL FLUID [facility] VZV DNA LILLIANA+non-probe Ql (CSF) Not detected Not Detected^No t Detected [facility] No Panel Informationon 07-10 [facility] Protein (CSF) [Mass/Vol]on 0 07-10-2024 CSF TOTAL PROTEIN 45 mg/dL Normal 15-45 [facility] Comment on above: Performed By: #### T HYR, CBC, BMP, 2776-06, 96508-4 #### [facility] ([id number]) [address], [address] [place] [address] Reagin Ab VDRL Ql (CSF)on VDRL, Spinal Fluid Negative Normal Negative [facility] Comment on above: Result Comment: NOTE Test Performed by: [facility] [address] [place] [address] Fence Gate Assembler: Eduardo Clakr Ph.D.; CLIA# [id number] Performed By: #### T HYR, CBC, BMP, 2776-06, 97902-0 #### [facility] ([id number]) [address], [address] [place] [address] SPINAL FLUID CELL CTon 07-10 CSF CLARITY CLEAR Normal [facility] Comment on above: Performed By: #### T HYR, CBC, BMP, 2776-06, 67052-0 #### [facility] ([id number]) [address], [address] [place] [address] CSF COLOR COLORLESS Normal [facility] Comment on above: Performed By: #### T HYR, CBC, BMP, 2776-06, 92835-8 #### [facility] ([id number]) [address], [address] [place] [address] CSF COMMENT TUBE 3 Normal [facility] Comment on above: Performed By: #### T HYR, CBC, BMP, 2776-06, #### [facility] ([id number]) [address], [address] [place] [address] CSF NUCLEATED CELLS 1 /uL Normal 0-5 [facility] Comment on above: Performed By: #### T HYR, CBC, BMP, 2776-06, 09056-8 #### [facility] ([id number]) [address], [address] [place] [address] CSF RBC 48 /uL High 0-1 [facility] Comment on above: Performed By: #### T HYR, CBC, BMP, 2776-06, 14858-9 #### [facility] ([id number]) [address], [address] [place] [address] CSF SUPERNATANT COLORLESS Normal [facility] Comment on above: Performed By: #### T HYR, CBC, BMP, 2776-06, 06643-2 #### [facility] ([id number]) [address], [address] [place] [address] SF DIFF NUCLEATED CELLS <5/uL; DIFF NOT TESTED Normal [facility] Comment on above: Performed By: #### T HYR, CBC, BMP, 2776-06, 29712-4 #### [facility] ([id number]) [address], [address] [place] [address] B. burgdorferi IgG+IgM Qn (S )on 07-09-2024 [facility] ECG 12 leadon 07-09-2024 TRACEMASTERVUE [facility] IgG synthesis rate Calc (S+C SF) [Mass/Time]on 07-09-2024 CSF IgG Index Profile SEE COMMENTS 07/11/2024 12:55 PM Normal [facility] Comment on above: Result Comment: NOTE Test [...] mg/dL 3500 - 5000 Test Performed by: [facility] [address] [place] [address] Fence Gate Assembler: Eduardo Clark Ph.D.; CLIA# [id number] Test Performed by: [facility] [address] [place] [address] Fence Gate Assembler: Eduardo Clark Ph.D.; CLIA# [id number] TANNER Virus Antibody W/Reflexon 07-09-2024 TANNER Virus Antibody Positive Abnormal [facility] Comment on above: Result Comment: NOTE Index [...] index.(1) (1) TYSABRI(natalizumab)US Prescribing Information Performed by: [facility] [facility] [address] [place] [address] Jessenia Bagley MD, PhD, TANNER Virus Index 2.94 High [facility] Comment on above: Result Comment: NOTE Performed by: [employer] [facility] [address] [place] [address] Jessenia Bagley MD, PhD, Laboratory comment Ramone (Repo rt)on 07-09-2024 [facility] UNLISTED LAB TEST Sent to reference lab Normal [facility] Lyme Totalon 07-09-2024 B. burgdorferi IgG+IgM Qn (S) A1 NINF - 0.9 A1 [facility] Comment on above: Interpretation-------- <0.9 [...] (PPP) [Relative time] 1.1 {INR} Normal 0.8-1.1 [facility] Comment on above: Performed By: #### T HYR, CBC, BMP, #### [facility] ([id number]) [address] [place] [address] PT Coag (PPP) [Time] 12.4 s Normal 9.8-13.2 [facility] Comment on above: Performed By: #### T HYR, CBC, BMP, 2776-06, #### [facility] ([id number]) [address] [place] [address] Protime & INRon 07-09-2024 INR Coag (PPP) [Relative time] 1.1 {INR} [facility] PT Coag (PPP) [Time] 12.4 s [facility] Syphilis Total(Unknown Syphi lis Status)on 07-09-2024 T. pallidum IgG+IgM IA Ql (S) [facility] Comment on above: NON REACTIVE No serologic evidence of infection to Treponema pallidum (syphilis). Repeat testing may be considered in patients with suspected acute or primary syphilis in 2 to 4 weeks. T. pallidum IgG+IgM IA Ql (S )on 07-09-2024 [facility] Unlisted Lab Test TANNER viruson 07-09-2024 Laboratory comment Ramone (Report) Sent to reference lab [facility] AMMONIAon 07-08-2024 Ammonia (P) [Moles/Vol] 40 umol/L Normal 18-72 [facility] Comment on above: Result Comment: SPEC IMEN HEMOLYZED, RESULTS INCREASED SLIGHTLY HEMOLYZED NEW REFERENCE RANGE Performed By: #### T HYR, CBC, BMP, 2776-06, 52215-5 #### [facility] ([id number]) [address], [address] [place] [address] Ammoniaon 07-08-2024 Ammonia (P) [Moles/Vol] 40 umol/L 18 - 72 umol/L [facility] Comment on above: SPECIMEN HEMOLYZED, RESULTS INCREASED SLIGHTLY HEMOLYZED NEW REFERENCE RANGE Ammonia (P) [Moles/Vol]on [facility] BASIC METABOLIC PANLon 07-08 Anion gap [Moles/Vol] 6 mmol/L Normal 5-15 [facility] Comment on above: Performed By: #### T HYR, CBC, BMP, 2776-06, #### [facility] ([id number]) [address], [address] [place] [address] Calcium [Mass/Vol] 8.3 mg/dL Low 8.5-10.5 [facility] Comment on above: Performed By: #### T HYR, CBC, BMP, 2776-06, #### [facility] ([id number]) [address], [address] [place] [address] Chloride [Moles/Vol] 107 mmol/L Normal 98-109 [facility] Comment on above: Performed By: #### T HYR, CBC, BMP, 2776-06, 74943-3 #### [facility] ([id number]) [address], [address] [place] [address] CO2 [Moles/Vol] 29 mmol/L Normal 22-32 [facility] Comment on above: Performed By: #### T HYR, CBC, BMP, 2776-06, 88777-5 #### [facility] ([id number]) [address], [address] [place] [address] Creatinine [Mass/Vol] 0.91 mg/dL Normal 0.60-1.30 [facility] Comment on above: Result Comment: METH OD TRACEABLE TO IDMS STANDARD Performed By: #### T HYR, CBC, BMP, 2776-06, 26996-2 #### [facility] ([id number]) [address], [address] [place] [address] eGFR (CKD-EPI) NON-RACE DEPENDENT >90 Normal >59 [facility] Comment on above: Result Comment: Reported eGFR is based on the CKD-EPI 1 equation that does not use a race coefficient. Performed By: #### T HYR, CBC, BMP, 2776-06, #### [facility] ([id number]) [address], [address] [place] [address] Glucose [Mass/Vol] 91 mg/dL Normal 65-99 [facility] Comment on above: Performed By: #### T HYR, CBC, BMP, 2776-06, 44073-8 #### [facility] ([id number]) [address], [address] [place] [address] Potassium [Moles/Vol] 4.1 mmol/L Normal 3.5-5.0 [facility] Comment on above: Performed By: #### T HYR, CBC, BMP, 2776-06, #### [facility] ([id number]) [address], [address] [place] [address] Sodium [Moles/Vol] 142 mmol/L Normal 134-146 [facility] Comment on above: Performed By: #### T HYR, CBC, BMP, 2776-06, #### [facility] ([id number]) [address], [address] [place] [address] Urea nitrogen [Mass/Vol] 22 mg/dL Normal 5-23 [facility] Comment on above: Performed By: #### T HYR, CBC, BMP, 2776-06, #### [facility] ([id number]) [address], [address] [place] [address] Basic Metabolic Panelon 06-20 Anion gap [Moles/Vol] 6 mmol/L 5 - 15 mmol/L [facility] Calcium [Mass/Vol] 8.3 mg/dL Low 8.5 - 10. 5 mg/dL [facility] Chloride [Moles/Vol] 107 mmol/L 98 - 10 9 mmol/L [facility] CO2 [Moles/Vol] 29 mmol/L 22 - 32 mmol/L [facility] Creatinine [Mass/Vol] 0.91 mg/dL 0.60 - 1.30 mg/dL [facility] Comment on above: METHOD TRACEABLE TO IDMS STANDARD eGFR (CKD-EPI)non-race dependent - PINF [facility] Comment on above: Reported eGFR is based on the CKD-EPI 2020 equation that does not use a race coefficient. Glucose [Mass/Vol] 91 mg/dL 65 - 99 mg/dL [facility] Interpretation and review of laboratory results Abnormal [facility] Potassium [Moles/Vol] 4.1 mmol/L 3.5 - 5.0 mmol/L [facility] Sodium [Moles/Vol] 142 mmol/L 134 - 146 mmol/L [facility] Urea nitrogen [Mass/Vol] 22 mg/dL 5 - 23 mg/dL [facility] CBC without diffon Erythrocyte distribution width (RBC) [Ratio] 15.6 % High 11.5 - 15.0 % [facility] Hematocrit (Bld) [Volume fraction] 39.1 % 39 - 49 % [facility] Hemoglobin (Bld) [Mass/Vol] 12.7 g/dL Low 13.0 - 17.0 g/dL [facility] Interpretation and review of laboratory results Abnormal [facility] MCH (RBC) [Entitic mass] 24.5 pg Low 27 - 34 pg [facility] MCHC (RBC) [Mass/Vol] 32.5 g/dL 32 - 3 6 g/dL [facility] MCV (RBC) [Entitic vol] 75 fL Low 80 - 100 fL [facility] Platelet mean volume (Bld) [Entitic vol] 8.6 fL 7 - 12 fL [facility] Platelets (Bld) [#/Vol] 154 10*3/uL [facility] RBC (Bld) [#/Vol] 5.19 10*6/uL [facility] WBC corrected for nucl RBC Auto (Bld) [#/Vol] 4.1 [facility] COMPLETE BLOOD COUNTon 07-08 Erythrocyte distribution width (RBC) [Ratio] 15.6 % High 11.5-15.0 [facility] Comment on above: Performed By: #### T HYR, CBC, BMP, 9 #### [facility] ([id number]) [address], [address] [place] [address] Hematocrit (Bld) [Volume fraction] 39.1 % Normal 39-49 [facility] Comment on above: Performed By: #### T HYR, CBC, BMP, 2776-06, 98669-9 #### [facility] ([id number]) [address], [address] [place] [address] Hemoglobin (Bld) [Mass/Vol] 12.7 g/dL Low 13.0-17.0 [facility] Comment on above: Performed By: #### T HYR, CBC, BMP, 2776-06, #### [facility] ([id number]) [address], [address] [place] [address] MCH (RBC) [Entitic mass] 24.5 pg Low 27-34 [facility] Comment on above: Performed By: #### T HYR, CBC, BMP, 2776-06, #### [facility] ([id number]) [address], [address] [place] [address] MCHC (RBC) [Mass/Vol] 32.5 g/dL Normal 32-36 [facility] Comment on above: Performed By: #### T HYR, CBC, BMP, 2776-06, #### [facility] ([id number]) [address], [address] [place] [address] MCV (RBC) [Entitic vol] 75 fL Low 80-100 [facility] Comment on above: Performed By: #### T HYR, CBC, BMP, 2776-06, #### [facility] ([id number]) [address], [address] [place] [address] Platelet mean volume (Bld) [Entitic vol] 8.6 fL Normal 7-12 [facility] Comment on above: Performed By: #### T HYR, CBC, BMP, 2776-06, #### [facility] ([id number]) [address], [address] [place] [address] Platelets (Bld) [#/Vol] 154 10*3/uL Normal 150-450 [facility] Comment on above: Performed By: #### T HYR, CBC, BMP, 2776-06, #### [facility] ([id number]) [address], [address] [place] [address] RBC COUNT 5.19 X10E12/L Normal 4.10-5.70 [facility] Comment on above: Performed By: #### T HYR, CBC, BMP, 7-1, #### [facility] ([id number]) [address], [address] [place] [address] WBC (Bld) [#/Vol] 4.1 10*3/uL Normal 4.0-11.0 [facility] Comment on above: Performed By: #### T HYR, CBC, BMP, 2776-, #### [facility] ([id number]) [address], [address] [place] [address] Cobalamin (Vitamin B12) [Mas s/Vol]on 07-08-2024 [facility] EEGon 07-08-2024 Images from the original [...] MD, PhD Neurology/Clinical Neurophysiology MANUALLY TRANSCRIBED RESULTS [facility] Folateon 07-08-2024 Folate [Mass/Vol] 10.2 ng/mL 5.8 - PINF ng/mL [facility] Comment on above: NEW REFERENCE RANGE Folate [Mass/Vol]on 07-08-19 [facility] FOLIC ACID 10.2 ng/mL Normal >5.8 [facility] Comment on above: Result Comment: NEW REFERENCE RANGE Performed By: #### T HYR, CBC, BMP, 2777-1, 52328-1 #### [facility] ([id number]) [address] [place] [address], [address] [place] [address] HIV 1&2 AB/AG Screen (P24 AG )on 07-08-2024 HIV 1+2 Ab+HIV1 p24 Ag IA Ql Non-Reactive Non-Reactiv e^Non-React deirdre [facility] Comment on above: NEW TEST [...] Ab+HIV1 p24 Ag IA Ql on 07-08-2024 [facility] 1 and 2 Ab/Ag Screen Non-Reactive Normal NRCT [facility] Comment on above: Result Comment: NEW TEST [...] By: #### T HYR, CBC, BMP, 2777-, 00788-8 #### [facility] ([id number]) [address] [address] [address], [address] [place] [address] VITAMIN B12on 07-08-2024 Cobalamin (Vitamin B12) [Mass/Vol] 526 pg/mL Normal 180-914 [facility] Comment on above: Performed By: #### T HYR, CBC, BMP, 7, 83294-8 #### [facility] ([id number]) [address] [address], [address] [place] [address] Vitamin B12on 07-08-2024 Cobalamin (Vitamin B12) [Mass/Vol] 526 pg/mL 180 - 914 pg/mL [facility] B. burgdorferi IgG+IgM Qn (S )on 07-07-2024 LYME TOTAL <0.2 Normal <0.9 [facility] Comment on above: Result Comment: Interpretation-------- <0.9 Negative 0.9 - 1.0 Equivocal >1.0 Positive No serological evidence of Borrelia infection.A non-reactive result does not exclude the possibility of Borrelia infection and cannot exclude early infection with B.burgdorferi. If Lyme borreliosis is suspected, a second sample should be collected and tested 2-4 weeks later. Performed By: #### C BC, BMP, 11760-9, 42951-1 #### [facility] ([id number]) [address], [address] [place] [address] BASIC METABOLIC PANLon 07-07 Anion gap [Moles/Vol] 8 mmol/L Normal 5-15 [facility] Comment on above: Performed By: #### C BC, BMP, 04703-9, 40318-3 #### [facility] ([id number]) [address], [address] [place] [address] Calcium [Mass/Vol] 8.8 mg/dL Normal 8.5-10.5 [facility] Comment on above: Performed By: #### Emily GAMA, BMP, 18512-8, 22249-3 #### [facility] ([id number]) [address], [address] [place] [address] Chloride [Moles/Vol] 107 mmol/L Normal 98-109 [facility] Comment on above: Performed By: #### Emily GAMA, BMP, 80509-4, 46479-6 #### [facility] ([id number]) [address], [address] [place] [address] CO2 [Moles/Vol] 30 mmol/L Normal 22-32 [facility] Comment on above: Performed By: #### Emily GAMA, BMP, 64768-4, 23157-6 #### [facility] ([id number]) [address], [address] [place] [address] Creatinine [Mass/Vol] 1.00 mg/dL Normal 0.60-1.30 [facility] Comment on above: Result Comment: METH OD TRACEABLE TO IDMS STANDARD Performed By: #### Emily GAMA, BMP, 68550-8, 57108-5 #### [facility] ([id number]) [address], [address] [place] [address] GFR/1.73 sq M.predicted among non-blacks MDRD (S/P/Bld) [Vol rate/Area] 87 mL/min/{1.73_m2} Normal >59 [facility] Comment on above: Result Comment: Reported eGFR is based on the CKD-EPI 2020 equation that does not use a race coefficient. Performed By: #### C DEE GAMA, 47099-0, 04239-5 #### [facility] ([id number]) [address], [address] [place] [address] Glucose [Mass/Vol] 106 mg/dL High 65-99 [facility] Comment on above: Performed By: #### DEE MOORE, 06124-5, 85653-5 #### [facility] ([id number]) [address], [address] [place] [address] Potassium [Moles/Vol] 3.9 mmol/L Normal 3.5-5.0 [facility] Comment on above: Performed By: #### DEE MOORE, 50682-9, 37967-9 #### [facility] ([id number]) [address], [address] [place] [address] Sodium [Moles/Vol] 145 mmol/L Normal 134-146 [facility] Comment on above: Performed By: #### Emily GAMA, DEE, 32653-1, 24050-5 #### [facility] ([id number]) [address], [address] [place] [address] Urea nitrogen [Mass/Vol] 23 mg/dL Normal 5-23 [facility] Comment on above: Performed By: #### DEE MOORE, 10732-9, 10154-7 #### [facility] ([id number]) [address], [address] [place] [address] Basic Metabolic Panelon 06-20 Anion gap [Moles/Vol] 8 mmol/L 5 - 15 mmol/L [facility] Calcium [Mass/Vol] 8.8 mg/dL 8.5 - 10. 5 mg/dL [facility] Chloride [Moles/Vol] 107 mmol/L 98 - 10 9 mmol/L [facility] CO2 [Moles/Vol] 30 mmol/L 22 - 32 mmol/L [facility] Creatinine [Mass/Vol] 1 mg/dL 0.60 - 1.30 mg/dL [facility] Comment on above: METHOD TRACEABLE TO [facility] STANDARD eGFR (CKD-EPI)non-race dependent 87 - PINF [facility] Comment on above: Reported eGFR is based on the CKD-EPI 2020 equation that does not use a race coefficient. Glucose [Mass/Vol] 106 mg/dL High 65 - 99 mg/dL [facility] Interpretation and review of laboratory results Abnormal [facility] Potassium [Moles/Vol] 3.9 mmol/L 3.5 - 5.0 mmol/L [facility] Sodium [Moles/Vol] 145 mmol/L 134 - 146 mmol/L [facility] Urea nitrogen [Mass/Vol] 23 mg/dL 5 - 23 mg/dL [facility] CBC without diffon Erythrocyte distribution width (RBC) [Ratio] 15.3 % High 11.5 - 15.0 % [facility] Hematocrit (Bld) [Volume fraction] 41.3 % 39 - 49 % [facility] Hemoglobin (Bld) [Mass/Vol] 13.4 g/dL 13.0 - 17.0 g/dL [facility] Interpretation and review of laboratory results Abnormal [facility] MCH (RBC) [Entitic mass] 24.7 pg Low 27 - 34 pg [facility] MCHC (RBC) [Mass/Vol] 32.5 g/dL 32 - 3 6 g/dL [facility] MCV (RBC) [Entitic vol] 76 fL Low 80 - 100 fL [facility] Platelet mean volume (Bld) [Entitic vol] 7.8 fL 7 - 12 fL [facility] Platelets (Bld) [#/Vol] 152 10*3/uL [facility] RBC (Bld) [#/Vol] 5.45 10*6/uL [facility] WBC corrected for nucl RBC Auto (Bld) [#/Vol] 4.4 [facility] COMPLETE BLOOD COUNTon 07-07 Erythrocyte distribution width (RBC) [Ratio] 15.3 % High 11.5-15.0 [facility] Comment on above: Performed By: #### C BC, BMP, 99475-5, 35812-8 #### [facility] ([id number]) [address], [address] [place] [address] Hematocrit (Bld) [Volume fraction] 41.3 % Normal 39-49 [facility] Comment on above: Performed By: #### C BC, BMP, 62998-5, 04522-8 #### [facility] ([id number]) [address], [address] [place] [address] Hemoglobin (Bld) [Mass/Vol] 13.4 g/dL Normal 13.0-17.0 [facility] Comment on above: Performed By: #### Emily BC, BMP, 41028-1, 01155-4 #### [facility] ([id number]) [address], [address] [place] [address] MCH (RBC) [Entitic mass] 24.7 pg Low 27-34 [facility] Comment on above: Performed By: #### C BC, BMP, 99754-2, 44018-9 #### [facility] ([id number]) [address], [address] [place] [address] MCHC (RBC) [Mass/Vol] 32.5 g/dL Normal 32-36 [facility] Comment on above: Performed By: #### C BC, BMP, 52198-7, 40858-1 #### [facility] ([id number]) [address], [address] [place] [address] MCV (RBC) [Entitic vol] 76 fL Low 80-100 [facility] Comment on above: Performed By: #### C BC, BMP, 15311-4, 12567-5 #### [facility] ([id number]) [address], [address] [place] [address] Platelet mean volume (Bld) [Entitic vol] 7.8 fL Normal 7-12 [facility] Comment on above: Performed By: #### C NATAN, BMP, 63634-9, 40494-9 #### [facility] ([id number]) [address], [address] [place] [address] Platelets (Bld) [#/Vol] 152 10*3/uL Normal 150-450 [facility] Comment on above: Performed By: #### C NATAN, BMP, 52517-3, 09931-7 #### [facility] ([id number]) [address], [address] [place] [address] RBC COUNT 5.45 X10E12/L Normal 4.10-5.70 [facility] Comment on above: Performed By: #### Emily BC, BMP, 90104-3, 90183-0 #### [facility] ([id number]) [address], [address] [place] [address] WBC (Bld) [#/Vol] 4.4 10*3/uL Normal 4.0-11.0 [facility] Comment on above: Performed By: #### Emily GAMA, BMP, 06265-0, 28102-5 #### [facility] ([id number]) [address], [address] [place] [address] CT BRAIN WO CONTon 5 CT BRAIN [...] telephoned by the radiology department. Finalized by Dleonte Johnson MD on 07/07/2024 9:19 AM Normal [facility] CT Head WO contraston 2024 CT BRAIN [...] Delonte Johnson MD on 07/07/2024 9:19 AM [facility] Study observation (narrative) [facility] CT Head WO contrastOrdered B y: Delonte Johnson on 07-07-2024 [facility] Work Phone: EEGon 07-07-2024 Images from [...] RESULTS EEGOrdered By: Reji Sanon on 07-07-2024 [facility] Work Phone: T. pallidum IgG+IgM IA Ql (S )on 07-07-2024 Syphilis Total <0.2 Normal 0.0-0.8 [facility] Comment on above: Result Comment: NON REACTIVE No serologic evidence of infection to Treponema pallidum (syphilis). Repeat testing may be considered in patients with suspected acute or primary syphilis in 2 to 4 weeks. Performed By: #### C BC, BMP, 71464-1, 87784-1 #### [facility] ([id number]) [address], [address] [place] [address] BASIC METABOLIC PANLon 07-06 Anion gap [Moles/Vol] 7 mmol/L Normal 5-15 [facility] Comment on above: Performed By: #### T HYR, CBC, BMP, 2776-06, 99185-7 #### [facility] ([id number]) [address], [address] [place] [address] Calcium [Mass/Vol] 8.8 mg/dL Normal 8.5-10.5 [facility] Comment on above: Performed By: #### T HYR, CBC, BMP, 2776-06, #### [facility] ([id number]) [address], [address] [place] [address] Chloride [Moles/Vol] 105 mmol/L Normal 98-109 [facility] Comment on above: Performed By: #### T HYR, CBC, BMP, 2776-06, #### [facility] ([id number]) [address], [address] [place] [address] CO2 [Moles/Vol] 30 mmol/L Normal 22-32 [facility] Comment on above: Performed By: #### T HYR, CBC, BMP, 2776-06, #### [facility] ([id number]) [address], [address] [place] [address] Creatinine [Mass/Vol] 1.00 mg/dL Normal 0.60-1.30 [facility] Comment on above: Result Comment: METH OD TRACEABLE TO IDMS STANDARD Performed By: #### T HYR, CBC, BMP, 2776-06, #### [facility] ([id number]) [address], [facility] [address] [place] [address] GFR/1.73 sq M.predicted among non-blacks MDRD (S/P/Bld) [Vol rate/Area] 87 mL/min/{1.73_m2} Normal >59 [facility] Comment on above: Result Comment: Reported eGFR is based on the CKD-EPI 2020 equation that does not use a race coefficient. Performed By: #### T HYR, CBC, BMP, 2776-06, #### [facility] ([id number]) [address], [address] [place] [address] Glucose [Mass/Vol] 102 mg/dL High 65-99 [facility] Comment on above: Performed By: #### T HYR, CBC, BMP, 2776-06, #### [facility] ([id number]) [address] [address] [place] [address] Potassium [Moles/Vol] 4.0 mmol/L Normal 3.5-5.0 [facility] Comment on above: Performed By: #### T HYR, CBC, BMP, #### [facility] ([id number]) [address], [address] [place] [address] Sodium [Moles/Vol] 142 mmol/L Normal 134-146 [facility] Comment on above: Performed By: #### T HYR, CBC, BMP, 7-1, 01773-0 #### [facility] ([id number]) [address], [address] [place] [address] Urea nitrogen [Mass/Vol] 22 mg/dL Normal 5-23 [facility] Comment on above: Performed By: #### T HYR, CBC, BMP, 7-, #### [facility] ([id number]) [address], [address] [place] [address] Basic Metabolic Panelon 06-20 Anion gap [Moles/Vol] 7 mmol/L 5 - 15 mmol/L [facility] Calcium [Mass/Vol] 8.8 mg/dL 8.5 - 10. 5 mg/dL [facility] Chloride [Moles/Vol] 105 mmol/L 98 - 10 9 mmol/L [facility] CO2 [Moles/Vol] 30 mmol/L 22 - 32 mmol/L [facility] Creatinine [Mass/Vol] 1 mg/dL 0.60 - 1.30 mg/dL [facility] Comment on above: METHOD TRACEABLE TO [facility] STANDARD eGFR (CKD-EPI)non-race dependent 87 - PINF [facility] Comment on above: Reported eGFR is based on the CKD-EPI 2020 equation that does not use a race coefficient. Glucose [Mass/Vol] 102 mg/dL High 65 - 99 mg/dL [facility] Interpretation and review of laboratory results Abnormal [facility] Potassium [Moles/Vol] 4 mmol/L 3.5 - 5.0 mmol/L [facility] Sodium [Moles/Vol] 142 mmol/L 134 - 146 mmol/L [facility] Urea nitrogen [Mass/Vol] 22 mg/dL 5 - 23 mg/dL [facility] CBC without diffon Erythrocyte distribution width (RBC) [Ratio] 15.5 % High 11.5 - 15.0 % [facility] Hematocrit (Bld) [Volume fraction] 42.8 % 39 - 49 % [facility] Hemoglobin (Bld) [Mass/Vol] 14.1 g/dL 13.0 - 17.0 g/dL [facility] Interpretation and review of laboratory results Abnormal [facility] MCH (RBC) [Entitic mass] 24.7 pg Low 27 - 34 pg [facility] MCHC (RBC) [Mass/Vol] 33 g/dL 32 - 3 6 g/dL [facility] MCV (RBC) [Entitic vol] 75 fL Low 80 - 100 fL [facility] Platelet mean volume (Bld) [Entitic vol] 7.8 fL 7 - 12 fL [facility] Platelets (Bld) [#/Vol] 169 10*3/uL [facility] RBC (Bld) [#/Vol] 5.71 10*6/uL High [facility] WBC corrected for nucl RBC Auto (Bld) [#/Vol] 4.7 [facility] COMPLETE BLOOD COUNTon 07-06 Erythrocyte distribution width (RBC) [Ratio] 15.5 % High 11.5-15.0 [facility] Comment on above: Performed By: #### T HYR, CBC, BMP, 2776-06, 98569-1 #### [facility] ([id number]) [address], [address] [place] [address] Hematocrit (Bld) [Volume fraction] 42.8 % Normal 39-49 [facility] Comment on above: Performed By: #### T HYR, CBC, BMP, 2776-06, 47369-3 #### [facility] ([id number]) [address], [address] [place] [address] Hemoglobin (Bld) [Mass/Vol] 14.1 g/dL Normal 13.0-17.0 [facility] Comment on above: Performed By: #### T HYR, CBC, BMP, 2776-06, #### [facility] ([id number]) [address], [address] [place] [address] MCH (RBC) [Entitic mass] 24.7 pg Low 27-34 [facility] Comment on above: Performed By: #### T HYR, CBC, BMP, 2776-06, #### [facility] ([id number]) [address], [address] [place] [address] MCHC (RBC) [Mass/Vol] 33.0 g/dL Normal 32-36 [facility] Comment on above: Performed By: #### T HYR, CBC, BMP, 2776-06, #### [facility] ([id number]) [address], [address] [place] [address] MCV (RBC) [Entitic vol] 75 fL Low 80-100 [facility] Comment on above: Performed By: #### T HYR, CBC, BMP, 2776-06, #### [facility] ([id number]) [address], [facility] [address] [place] [address] Platelet mean volume (Bld) [Entitic vol] 7.8 fL Normal 7-12 [facility] Comment on above: Performed By: #### T HYR, CBC, BMP, 2776-06, #### [facility] ([id number]) [address], [address] [place] [address] Platelets (Bld) [#/Vol] 169 10*3/uL Normal 150-450 [facility] Comment on above: Performed By: #### T HYR, CBC, BMP, 2776-06, #### [facility] ([id number]) [address], [address] [place] [address] RBC COUNT 5.71 X10E12/L High 4.10-5.70 [facility] Comment on above: Performed By: #### T HYR, CBC, BMP, 2776-06, 51232-6 #### [facility] ([id number]) [address], [address] [place] [address] WBC (Bld) [#/Vol] 4.7 10*3/uL Normal 4.0-11.0 [facility] Comment on above: Performed By: #### T HYR, CBC, BMP, 2776-06, #### [facility] ([id number]) [address], [address] [place] [address] MAGNESIUMon 07-06-2024 Magnesium [Mass/Vol] 1.9 mg/dL Normal 1.8-2.6 [facility] Comment on above: Performed By: #### T HYR, CBC, BMP, 2776-06, #### [facility] ([id number]) [address], [address] [place] [address] Magnesiumon 07-06-2024 Magnesium [Mass/Vol] 1.9 mg/dL 1.8 - 2 .6 mg/dL [facility] No Panel Informationon 07-06 [facility] PHOSPHORUSon 07-06-2024 Phosphate [Mass/Vol] 4.1 mg/dL Normal 2.4-4.9 [facility] Comment on above: Performed By: #### T HYR, CBC, BMP, 2776-06, 82333-9 #### [facility] ([id number]) [address], [address] [place] [address] Phosphoruson 07-06-2024 Phosphate [Mass/Vol] 4.1 mg/dL 2.4 - 4 .9 mg/dL [facility] THYROID PROFILEon 07-06-2024 Free T4 [Mass/Vol] 0.84 ng/dL Normal 0.61-1.60 [facility] Comment on above: Performed By: #### T HYR, CBC, BMP, 2776-06, 67574-0 #### [facility] ([id number]) [address], [address] [place] [address] TSH 1.16 uIU/mL Normal 0.49-4.67 [facility] Comment on above: Performed By: #### T HYR, CBC, BMP, 2777-1, 17166-5 #### [facility] ([id number]) [address], [address] [place] [address] Thyroid profile includes TSH FT4on 07-06-2024 Free T4 [Mass/Vol] 0.84 ng/dL 0.61 - 1. 60 ng/dL [facility] TSH Qn 1.16 m[IU]/L [facility] ACETAMINOPHENon 06-24-2024 Acetaminophen [Mass/Vol] 3.3 ug/mL Low 10.0-30.0 [facility] Comment on above: Result Comment: Refe rence ranges are for therapeutic limits. Performed By: #### C BCA, CMP, 5643-2, 3298-7, 4024-6, THYR #### [facility] ([id number]) [address] [place] [address] CBC AND AUTO DIFFon 06-24-19 25 ABSOLUTE BASOPHIL 0.1 X10E9/L Normal 0.0-0.2 [facility] Comment on above: Performed By: #### C BCA, CMP, 5643-2, 3298-7, 4024-6, THYR #### [facility] ([id number]) [address] [place] [id number] ABSOLUTE NEUTROPHIL 3.1 X10E9/L Normal 1.5-6.6 [facility] Comment on above: Performed By: #### C BCA, CMP, 5643-2, 3298-7, 4024-6, THYR #### [facility] ([id number]) [address] [place] [address] [id number] Basophils/100 WBC (Bld) 1.0 % Normal [facility] Comment on above: Performed By: #### C CARRIE, CMP, 5643-2, 3298-7, 4024-6, THYR #### [facility] ([id number]) [address] [place] [id number] Eosinophils (Bld) [#/Vol] 0.1 10*3/uL Normal 0.0-0.4 [facility] Comment on above: Performed By: #### C CARRIE, CMP, 5643-2, 3298-7, 4024-6, THYR #### [facility] ([id number]) [address] [place] [id number] Eosinophils/100 WBC (Bld) 1.4 % Normal [facility] Comment on above: Performed By: #### C CARRIE, [facility], 5643-2, 3298-7, 4024-6, THYR #### [place] [facility] ([id number]) [address] [place] [address] 17509 Erythrocyte distribution width (RBC) [Ratio] 15.6 % High 11.5-15.0 [facility] Comment on above: Performed By: #### C CARRIE, CMP, 5643-2, 3298-7, 4024-6, THYR #### [facility] ([id number]) [address] [place] [address] 08188 Hematocrit (Bld) [Volume fraction] 42.7 % Normal 39-49 [facility] Comment on above: Performed By: #### C CARRIE, CMP, 5643-2, 3298-7, 4024-6, THYR #### [facility] ([id number]) [address] [place] [address] 52522 Hemoglobin (Bld) [Mass/Vol] 14.3 g/dL Normal 13.0-17.0 [facility] Comment on above: Performed By: #### C BCA, CMP, 5643-2, 3298-7, 4024-6, THYR #### [facility] ([id number]) [address] [place] [address] 28236 Lymphocytes (Bld) [#/Vol] 1.8 10*3/uL Normal 1.0-3.5 [facility] Comment on above: Performed By: #### C BCA, [facility], 5643-2, 3298-7, 4024-6, THYR #### [facility] ([id number]) [address] [place] [address] 31151 Lymphocytes/100 WBC (Bld) 33.3 % Normal [facility] Comment on above: Performed By: #### C BCA, [facility], 5643-2, 3298-7, 4024-6, THYR #### [facility] ([id number]) [address] [place] [address] 85013 MCH (RBC) [Entitic mass] 24.7 pg Low 27-34 [facility] Comment on above: Performed By: #### C BCA, [facility], 5643-2, 3298-7, 4024-6, THYR #### [facility] ([id number]) [address] [place] [address] 78887 MCHC (RBC) [Mass/Vol] 33.4 g/dL Normal 32-36 [facility] Comment on above: Performed By: #### C BCA, CMP, 5643-2, 3298-7, 4024-6, THYR #### [facility] ([id number]) [address] [place] [address] 89149 MCV (RBC) [Entitic vol] 74 fL Low 80-100 [facility] Comment on above: Performed By: #### C BCA, CMP, 5643-2, 3298-7, 4024-6, THYR #### [facility] ([id number]) [address] [place] [address], [place] [address] Monocytes (Bld) [#/Vol] 0.4 10*3/uL Normal 0-0.9 [facility] Comment on above: Performed By: #### C OWEN BUTLER, 5643-2, 3298-7, 4024-6, THYR #### [facility] ([id number]) [address] [place] [address] 28719 Monocytes/100 WBC (Bld) 6.9 % Normal [facility] Comment on above: Performed By: #### Emily BUTLER CMP, 5643-2, 3298-7, 4024-6, THYR #### [facility] ([id number]) [address] [place] [address] 60258 Neutrophils/100 WBC (Bld) 57.4 % Normal [facility] Comment on above: Performed By: #### Emily BUTLER [facility], 43-2, 3298-7, 4024-6, THYR #### [facility] ([id number]) [address] [place] [address] 93141 Platelet mean volume (Bld) [Entitic vol] 7.8 fL Normal 7-12 [facility] Comment on above: Performed By: #### Emily BUTLER CMP, 5643-2, 3298-7, 4024-6, THYR #### [facility] ([id number]) [address] [place] [address] 50792 Platelets (Bld) [#/Vol] 174 10*3/uL Normal 150-450 [facility] Comment on above: Performed By: #### Emily BUTLER CMP, 5643-2, 3298-7, 4024-6, THYR #### [facility] ([id number]) [address] [place] [address] 53563 RBC COUNT 5.77 X10E12/L High 4.10-5.70 [facility] Comment on above: Performed By: #### C BCA, CMP, 5643-2, 3298-7, 4024-6, THYR #### [facility] ([id number]) [address] [place] [address] 30216 WBC (Bld) [#/Vol] 5.4 10*3/uL Normal 4.0-11.0 [facility] Comment on above: Performed By: #### C BCA, CMP, 5643-2, 3298-7, 4024-6, THYR #### [facility] ([id number]) [address] [place] [address] 01129 COMPREHENSIVE METABOLIC PANE Jatin 06-24-2024 Albumin [Mass/Vol] 4.0 g/dL Normal 3.2-5.3 [facility] Comment on above: Performed By: #### C BCA, CMP, 5643-2, 3298-7, 4024-6, THYR #### [facility] ([id number]) [address] [place] [address] 24046 ALP [Catalytic activity/Vol] 65 U/L Normal 39-130 [facility] Comment on above: Performed By: #### C BCA, CMP, 5643-2, 3298-7, 4024-6, THYR #### [facility] ([id number]) [address] [place] [address] 54207 ALT [Catalytic activity/Vol] 17 U/L Normal 0-40 [facility] Comment on above: Performed By: #### C BCA, CMP, 5643-2, 3298-7, 4024-6, THYR #### [facility] ([id number]) [address] [place] [address] 28993 Anion gap [Moles/Vol] 8 mmol/L Normal 5-15 [facility] Comment on above: Performed By: #### C BCA, CMP, 5643-2, 3298-7, 4024-6, THYR #### [facility] ([id number]) [address] [place] [address] 67341 AST [Catalytic activity/Vol] 17 U/L Normal 0-41 [facility] Comment on above: Performed By: #### C BCA, CMP, 5643-2, 3298-7, 4024-6, THYR #### [facility] ([id number]) [address] [place] [address] 89469 Bilirubin [Mass/Vol] 0.7 mg/dL Normal 0.3-1.2 [facility] Comment on above: Performed By: #### C BCA, CMP, 5643-2, 3298-7, 4024-6, THYR #### [facility] ([id number]) [address] [place] [address] 72893 Calcium [Mass/Vol] 8.9 mg/dL Normal 8.5-10.5 [facility] Comment on above: Performed By: #### C BCA, CMP, 5643-2, 3298-7, 4024-6, THYR #### [facility] ([id number]) [address] [place] [address] 05419 Chloride [Moles/Vol] 106 mmol/L Normal 98-109 [facility] Comment on above: Performed By: #### C BCA, CMP, 5643-2, 3298-7, 4024-6, THYR #### [facility] ([id number]) [address] [place] [address] 33269 CO2 [Moles/Vol] 24 mmol/L Normal 22-32 [facility] Comment on above: Performed By: #### C BCA, CMP, 5643-2, 3298-7, 4024-6, THYR #### [facility] ([id number]) [address] [place] [address] 71615 Creatinine [Mass/Vol] 0.88 mg/dL Normal 0.70-1.20 [facility] Comment on above: Result Comment: METH OD TRACEABLE TO IDMS STANDARD Performed By: #### C CARRIE, OWEN, 5643-2, 3298-7, 4024-6, THYR #### [facility] ([id number]) [address] [place] [address] 08745 eGFR (CKD-EPI) NON-RACE DEPENDENT >90 Normal >59 [facility] Comment on above: Result Comment: Reported eGFR is based on the CKD-EPI 2020 equation that does not use a race coefficient. Performed By: #### C CARRIE, OWEN, 5643-2, 3298-7, 4024-6, THYR #### [facility] ([id number]) [address] [place] [address] 27618 Glucose [Mass/Vol] 105 mg/dL High 65-99 [facility] Comment on above: Performed By: #### C OWEN BUTLER, 5643-2, 3298-7, 4024-6, THYR #### [facility] ([id number]) [address] [place] [address] 67235 Potassium [Moles/Vol] 3.9 mmol/L Normal 3.5-5.0 [facility] Comment on above: Performed By: #### C OWEN BUTLER, 5643-2, 3298-7, 4024-6, THYR #### [facility] ([id number]) [address] [place] [address] 80555 Protein [Mass/Vol] 6.9 g/dL Normal 6.0-8.0 [facility] Comment on above: Performed By: #### C OWEN BUTLER, 5643-2, 3298-7, 4024-6, THYR #### [facility] ([id number]) [address] [place] [address] 21490 Sodium [Moles/Vol] 138 mmol/L Normal 134-146 [facility] Comment on above: Performed By: #### C BCA, CMP, 5643-2, 3298-7, 4024-6, THYR #### [facility] ([id number]) [address] [place] [address] 78094 Urea nitrogen [Mass/Vol] 20 mg/dL Normal 5-23 [facility] Comment on above: Performed By: #### C BCA, CMP, 5643-2, 3298-7, 4024-6, THYR #### [facility] ([id number]) [address] [place] [address] 32153 DRUG SCREEN, URINEon 025 AMPHETAMINE/METHAMP Negative Normal NEG [facility] Comment on above: Result Comment: AMPH /METH screening cut off = 1000 ng/mL Performed By: #### D FAGAN #### [facility] ([id number]) [address] [place] [address] 90484 BARBITURATES Negative Normal NEG [facility] Comment on above: Result Comment: Izabel iturates screening cut off value = 200 ng/mL Performed By: #### D FAGAN #### [facility] ([id number]) [address] [place] [address] 92826 BENZODIAZEPINES Negative Normal NEG [facility] Comment on above: Result Comment: Skyler odiazepines screening cut off value = 200 ng/mL Performed By: #### D FAGAN #### [facility] ([id number]) [address] [place] [address] 85795 CANNABINOIDS Negative Normal NEG [facility] Comment on above: Result Comment: Sabina abinoids/THC screening cut off value = 50 ng/mL Performed By: #### D FAGAN #### [facility] ([id number]) [address] [place] [address] 70591 COCAINE METABOLITE Negative Normal NEG [facility] Comment on above: Result Comment: Coca ine screening cut off value = 300 ng/mL Performed By: #### D FAGAN #### [facility] ([id number]) [address] [place] [address] 68611 ECSTASY Negative Normal NEG [facility] Comment on above: Result Comment: Ecst asy screening cut off value = 500 ng/mL This report is intended for use in clinical monitoring or management of patients. Performed By: #### D FAGAN #### [facility] ([id number]) [address] [place] [address] 35302 METHADONE Negative Normal NEG [facility] Comment on above: Result Comment: Meth adone screening cut off value = 300 ng/mL. Performed By: #### D FAGAN #### [facility] ([id number]) [address] [place] [address] 54818 OPIATES Negative Normal NEG [facility] Comment on above: Result Comment: Opia ann screening cut off value = 300 ng/mL NOTE: This test is used for the detection of codeine, hydrocodone (>1000 ng/mL), morphine and hydromorphone (>900 ng/mL) in urine. Performed By: #### D FAGAN #### [facility] ([id number]) [address] [place] [address] 87802 OXYCODONE Negative Normal NEG [facility] Comment on above: Result Comment: Oxyc odone screening cut off value = 300 ng/mL NOTE: This test is used for the detection of oxycodone and oxymorphone in urine. Performed By: #### D FAGAN #### [facility] ([id number]) [address] [place] [address] 94535 PHENCYCLIDINE Negative Normal NEG [facility] Comment on above: Result Comment: Phen cyclidine screening cut off value = 25 ng/mL Performed By: #### D FAGAN #### [facility] ([id number]) [address] [place] [address] 77139 ETHANOLon 06-24-2024 Ethanol [Mass/Vol] mg/dL Normal 0.00-0.08 [facility] Comment on above: Result Comment: This report is intended for use in clinical monitoring or management of patients. Performed By: #### C CARRIE, OWEN, 5643-2, 3298-7, 4024-6, THYR #### [facility] ([id number]) [address] [place] [address] 15924 Salicylates [Mass/Vol]on SALICYLATE <4.0 Normal 2.0-25.0 [facility] Comment on above: Result Comment: Refe rence ranges are for therapeutic limits. Performed By: #### C CARRIE, OWEN, 5643-2, 3298-7, 4024-6, THYR #### [facility] ([id number]) [address] [place] [address] 08180 THYROID PROFILEon 06-24-2024 Free T4 [Mass/Vol] 0.92 ng/dL Normal 0.61-1.60 [facility] Comment on above: Performed By: #### C CARRIE, CMP, 5643-2, 3298-7, 4024-6, THYR #### [facility] ([id number]) [address] [place] [address] 07291 TSH 4.19 uIU/mL Normal 0.49-4.67 [facility] Comment on above: Performed By: #### C CARRIE, OWEN, 5643-2, 3298-7, 4024-6, THYR #### [facility] ([id number]) [address] [place] [address], [place] [address] URN MACROSCOPIC NURon 2024 BILIRUBIN IRMA Negative Normal NEG [facility] Comment on above: Performed By: #### N UM #### [facility] ([id number]) [address] [place] [address], [place] [address] BLOOD/HGB IRMA Negative Normal NEG [facility] Comment on above: Performed By: #### N UM #### [facility] ([id number]) [address] [place] [address] [place] [address] GLUCOSE IRMA Negative Normal NEG [facility] Comment on above: Performed By: #### N UM #### [facility] ([id number]) [address] [place] [address] [place] [address] KETONES IRMA Negative Normal NEG [facility] Comment on above: Performed By: #### N UM #### [facility] ([id number]) [address] [place] [address] 18395 LEUKOCYTE ESTERASE IRMA Negative Normal NEG [facility] Comment on above: Performed By: #### N UM #### [facility] ([id number]) [address] [place] [address] 52492 NITRITE IRMA Negative Normal NEG [facility] Comment on above: Performed By: #### N UM #### [facility] ([id number]) [address] [place] [address] 47198 PH IRMA 7.5 Normal 5.0-8.5 [facility] Comment on above: Performed By: #### N UM #### [facility] ([id number]) [address] [place] [address] 07598 PROTEIN IRMA Negative Normal NEG [facility] Comment on above: Performed By: #### N UM #### [facility] ([id number]) [address] [place] [address] [place] [address] SPECIFIC GRAVITY IRMA 1.015 Normal 1.003-1.035 [facility] Comment on above: Performed By: #### N UM #### [facility] ([id number]) [address] [place] [address] [place] [address] UROBILINOGEN IRMA 0.2 eu/dL Normal <1.1 [facility] Comment on above: Performed By: #### N UM #### [facility] ([id number]) [address] [place] [address], [place] [address] BMPon 06-21-2024 Anion gap [Moles/Vol] 11 mmol/L Normal 6-[address] [facility] Comment on above: Performed By: #### 2 201416 #### [facility] [address] [place] [address] Calcium [Mass/Vol] 9.0 mg/dL Normal 8.9-11.1 [facility] Comment on above: Performed By: #### 2 132758 #### [facility] [address] [place] [address] Chloride [Moles/Vol] 102 mmol/L Normal 101-111 [facility] Comment on above: Performed By: #### 2 448329 #### [facility] [address] [place] [address] CO2 [Moles/Vol] 30 mmol/L Normal 21-31 [facility] Comment on above: Performed By: #### 2 423415 #### [facility] [address] [place] [address] Creatinine [Mass/Vol] 0.9 mg/dL Normal 0.5-1.[address] [facility] Comment on above: Performed By: #### 2 311854 #### [facility] [address] [place] [address] Glucose [Mass/Vol] 108 mg/dL Normal 55-199 [facility] Comment on above: Performed By: #### 2 216690 #### [facility] [address] [place] [address] Potassium [Moles/Vol] 3.9 mmol/L Normal 3.5-5.[address] [facility] Comment on above: Performed By: #### 2 980562 #### [facility] [address] [place] [address] Sodium [Moles/Vol] 139 mmol/L Normal 135-145 [facility] Comment on above: Performed By: #### 2 359225 #### [facility] [address] [place] [address] Urea nitrogen [Mass/Vol] 12 mg/dL Normal 5-21 [facility] Comment on above: Performed By: #### 2 449453 #### [facility] [address] [place] [address] 75179 Urea nitrogen/Creatinine [Mass ratio] 13 No Units Normal 10-20 [facility] Comment on above: Performed By: #### 2 612918 #### [facility] [address] [place] [address] CBC w/ Auto Diffon 5 Basophils/100 WBC (Bld) 0.6 % Normal 0.0-2.0 [facility] Comment on above: Performed By: #### 2 426115 #### [facility] [address] [place] [address] 46765 Basophils/Leukocytes Auto (Bld) [Pure # fraction] 0.0 E9/L Normal 0.0-0.2 [facility] Comment on above: Performed By: #### 2 582607 #### [facility] [address] [place] [address] 71298 Eosinophils (Bld) [#/Vol] 0.0 E9/L Normal 0.0-0.5 [facility] Comment on above: Performed By: #### 2 294473 #### [facility] [address] [place] [address] 42841 Eosinophils/100 WBC (Bld) 0.6 % Normal 0.0-8.0 [facility] Comment on above: Performed By: #### 2 261940 #### [facility] [address] [place] [address] 93500 Erythrocyte distribution width (RBC) [Ratio] 15.6 % High 10.9-14.2 [facility] Comment on above: Performed By: #### 2 140404 #### [facility] [address] [place] [address] 78727 Hematocrit (Bld) [Volume fraction] 45.0 % Normal 37.7-49.0 [facility] Comment on above: Performed By: #### 2 142975 #### [facility] [address] [place] [address] Hemoglobin (Bld) [Mass/Vol] 14.7 g/dL Normal 13.5-17.5 [facility] Comment on above: Performed By: #### 2 855121 #### [facility] [address] [place] [address] Hypochromia Auto Ql (Bld) PRESENT Invalid Interpretation Code [facility] Comment on above: Performed By: #### 2 254548 #### [facility] [address] [place] [address] Lymphocytes (Bld) [#/Vol] 1.1 E9/L Normal 1.0-4.0 [facility] Comment on above: Performed By: #### 2 417482 #### [facility] [address] [place] [address] Lymphocytes/100 WBC (Bld) 23.5 % Normal 14.0-50.0 [facility] Comment on above: Performed By: #### 2 645576 #### [facility] [address] [place] [address] MCH (RBC) [Entitic mass] 24.7 pg Low 27.0-34.0 [facility] Comment on above: Performed By: #### 2 043419 #### [facility] [address] [place] [address] MCHC (RBC) [Mass/Vol] 32.7 g/dL Normal 31.4-36.[address] [facility] Comment on above: Performed By: #### 2 059506 #### [facility] [address] [place] [address] MCV (RBC) [Entitic vol] 75.5 fL Low 80.0-100.0 [facility] Comment on above: Performed By: #### 2 802617 #### [facility] [address] [place] [address] Monocytes (Bld) [#/Vol] 0.2 E9/L Normal 0.2-1.0 [facility] Comment on above: Performed By: #### 2 089440 #### [facility] [address] [place] [address] Neutrophils (Bld) [#/Vol] 3.3 E9/L Normal 2.0-7.5 [facility] Comment on above: Performed By: #### 2 756951 #### [facility] [address] [place] [address] Neutrophils/100 WBC (Bld) 70.5 % Normal 36.0-75.0 [facility] Comment on above: Performed By: #### 2 916869 #### [facility] [address] [place] [address] 96483 Platelet mean volume (Bld) [Entitic vol] 8.5 fL Normal 6.4-10.8 [facility] Comment on above: Performed By: #### 2 016917 #### [facility] [address] [place] [address] 59101 Platelets (Bld) [#/Vol] 167.0 E9/L Normal 150.0-500.0 [facility] Comment on above: Performed By: #### 2 876776 #### [facility] [address] [place] [address] 58777 RBC (Bld) [#/Vol] 6.0 E12/L High 4.3-5.9 [facility] Comment on above: Performed By: #### 2 753494 #### [facility] [address] [place] [address] 03511 RBC size Nom (Bld) SEE MORPHOLOGY Invalid Interpretation Code [facility] Comment on above: Performed By: #### 2 165838 #### [facility] [address] [place] [address] 20796 WBC corrected for nucl RBC Auto (Bld) [#/Vol] 4.6 E9/L Normal 4.0-11.0 [facility] Comment on above: Performed By: #### 2 873243 #### [facility] [address] [place] [address] 25574 CHEMISTRYOrdered By: SYSTEM SYSTEM on 06-21-2024 Anion [...] 30.4 s Normal 25.1 - 36.5 second(s) [facility] Comment on above: Interpretive Data: [...] the same coagulation reagent and instrumentation as [facility]. Currently there are no coagulation studies available worldwide for children to 14 days, and no normal ranges. Heparin therapeutic range (represented by Anti-Factor Xa activity of 0.2 - 0.4 U/mL) corresponds to PTT of 56.6 - 109.0 sec. INR Coag (PPP) [Relative time] 1.02 {INR} Invalid Interpretation Code [facility] Comment on above: Interpretive Data: I NR results are specifically intended to assess patients stabilized on long-term Anticoagulation therapy suggested INR s Less Intensive Anticoagulation 2.0 3.0 Conventional Range 3.0 4.5 PT Coag (PPP) [Time] 11.4 s Normal 9.4 - 1 2.5 second(s) [facility] Comment on above: Interpretive Data: [...] the same coagulation reagent and instrumentation as [facility]. Currently there are no coagulation studies available [...] the same coagulation reagent and instrumentation as [facility]. Currently there are no coagulation studies available worldwide for children to 14 days, and no normal ranges. Heparin therapeutic range (represented by Anti-Factor Xa activity of 0.2 - 0.4 U/mL) corresponds to PTT of 56.6 - 109.0 sec. Performed By: #### [id number] #### [facility] [address] [place] [address] INR Coag (PPP) [Relative time] 1.02 {INR} Invalid Interpretation Code [facility] Comment on above: Result Comment: INR results are specifically intended to assess patients stabilized on long-term Anticoagulation therapy suggested INR???s ???Less Intensive Anticoagulation??? 2.0 ??? 3.0 Conventional Range 3.0 ??? 4.5 Performed By: #### 1 [id number] #### [facility] [address] [place] [address] PT Coag (PPP) [Time] 11.4 second(s) Normal 9.4-12.5 [facility] Comment on above: Result Comment: 15 [...] the same coagulation reagent and instrumentation as [facility]. Currently there are no coagulation studies available worldwide for children to 14 days, and no normal ranges. Performed By: #### 1 [id number] #### [facility] [address] [place] [address] UA with Cult Rflxon 06-21-19 25 Bilirubin Ql (U) Negative Normal Negative [facility] Comment on above: Performed By: #### 4 [id number] #### [facility] [address] [place] [address] Clarity (U) Clear Normal Clear [facility] Comment on above: Performed By: #### 4 [id number] #### [facility] [address] [place] [address] Color (U) Colorless Abnormal Yellow [facility] Comment on above: Result Comment: Micr oscopic readings are only performed on those samples that meet specific criteria set forth by [facility]. Performed By: #### 4 [id number] #### [facility] [address] [place] [address] Glucose Ql (U) Negative Normal Negative [facility] Comment on above: Performed By: #### 4 [id number] #### [facility] [address] [place] [address] Hemoglobin Auto test strip (U) [Mass/Vol] Negative Normal Negative [facility] Comment on above: Performed By: #### 4 [id number] #### [facility] [address] [place] [address] Ketones Auto test strip Ql (U) Negative Normal Negative [facility] Comment on above: Performed By: #### 4 [id number] #### [facility] [address] [place] [address] Leukocyte esterase Auto test strip Ql (U) Negative Normal Negative [facility] Comment on above: Performed By: #### 4 [id number] #### [facility] [address] [place] [address] Nitrite Auto test strip Ql (U) Negative Normal Negative [facility] Comment on above: Performed By: #### 4 [id number] #### [facility] [address] [place] [address] pH (U) 7.0 [pH] Invalid Interpretation Code 5.0-9.0 [facility] Comment on above: Performed By: #### 4 [id number] #### [facility] [address] [place] [address] Protein Ql (U) Negative Normal Negative [facility] Comment on above: Performed By: #### 4 [id number] #### [facility] [address] [place] [address] Specific gravity (U) [Rel density] 1.005 Invalid Interpretation Code 1.005-1.030 [facility] Comment on above: Performed By: #### 4 [id number] #### [facility] [address] [place] [address] Urobilinogen (U) [Mass/Vol] Negative Normal Negative [facility] Comment on above: Performed By: #### 4 [id number] #### [facility] [address] [place] [address] Type of Urine collection method Clean Catch Normal [facility] Comment on above: Performed By: #### 4 [id number] #### [facility] [address] [place] [address] URINALYSISOrdered By: SYSTEM SYSTEM on 06-21-2024 Bilirubin Ql (U) Negative Normal Negativemg/ dL [facility] UA Auto SS Clarity (U) Clear (06/21/24 11:04 AM) Normal Clear [facility] UA Auto SS Color (U) Colorless 1 *ABN* (06/21/24 11:04 AM) Invalid Interpretation Code Yellow [facility] UA Auto SS Comment on above: Interpretive Data: M icroscopic readings are only performed on those samples that meet specific criteria set forth by [facility]. Glucose Ql (U) Negative Normal [...] AM) Invalid Interpretation Code 5.0 - 9.0 [facility] UA Auto SS Protein Ql (U) Negative Normal Negativemg/ dL [facility] UA Auto SS Specific gravity (U) [Rel density] 1.005 *NA* (06/21/24 11:04 AM) Invalid Interpretation Code 1.005 - 1.030 [facility] UA Auto SS Urobilinogen (U) [Mass/Vol] Negative Normal Negativemg/ dL [facility] UA Auto SS URINALYSISOrdered By: Peter Larios on 06-21-2024 UA Spec Desc Clean Catch (06/21/24 11:04 AM) Normal [facility] UA Auto SS XR Chest 2 Viewson [...] mGy = na DAP = na Normal [facility] eGFRon 06-21-2024 eGFR 98 mL/min/1.73 m2 Normal >=59 [facility] Comment on above: Performed By: #### 1 [id number] #### [facility] [address] [place] [address] Provider Letteron 04-18-2024 Provider Letter Provider Letter April 18, 2024 [address] JEFFERY [address] [place] [id number] : 1965 Dear, I am corresponding with [...] Office Sincerely, Dr. Danni [facility] [address] [place] [address]. [place] [id number] Normal [facility] ISTAT XRay CREon 03-15-2024 ISTAT GFR > 60.0 Normal [facility] Comment on above: Result Comment: PERF ORMED BY: [place] [address] PATHOLOGIST BIZTALK DEVELOPER NALDO SALDIVAR M.D. Performed By: #### I SCRE #### [address] MR prostate wo/w conon 03-15 MR prostate wo/w con [facility] Main [place] [address] [place] [address] MRI Report Signed Patient: Noé Jeffery MR#: [id number] : 1965 Acct:[id number] Age/Sex: 58 / M ADM Date: 03/15/24 Loc: MR Room: Type: [facility] Attending Dr: Danni Graham MD Copies to: [...] Anne Jr., Brittany03/15/2024 3:05 PM Dictation Location: [place] [address] Transcribed By: [facility] 03/15/24 1505 Dictated By: Esdras Anne Jr, DO 03/15/24 1501 Signed By: 03/15/24 1505 Normal [facility] No Panel InformationOrdered By: Danni Graham on 03-15-2024 Bedside Estimated GFR (eGFR) > 60.0 [facility] Whole blood creatinine measu rementOrdered By: Danni Graham on 03-15-2024 Creatinine [Mass/Vol] 1.0 mg/dL Normal 0.6-1.3 [facility] Comment on above: ER/ESD physician is notified/shown all ISTAT results.Critical values may be confirmed by laboratory testing ifdeemed necessary by ER attending doctor. Result Comment: ER/E SD physician is notified/shown all ISTAT results. Critical values may be confirmed by laboratory testing if deemed necessary by ER attending doctor. Performed By: #### I SCRE #### [facility] [address] RITO by IFAon 10-25-2022 Antinuclear Antibodies, IFA Negative Normal [facility] Comment on above: Result Comment: Nega tive <1:80 Borderline 1:80 Positive >1:80 ICAP nomenclature: AC-0 For more information about Hep-2 cell patterns use ANApatterns.org, the official website for the International Consensus on Antinuclear Antibody (RITO) Patterns (ICAP). Performed By: #### T 7, TSH, CMP, LISANDRA, LIPA, LIPID #### [facility] [address] [place] [address] Dr. Janell Marquez ANTISTREPTOLYSIN O AB (ASO)o n 10-22-2022 Antistreptolysin O Ab 45.9 IU/mL Normal 0.0-200.0 [facility] Comment on above: Performed By: #### A SOAB #### [facility] [address] [place] [address] Dr. Janell Marquez RHEUMATOID FACTORon 10-23-19 RA Latex Turbid. <10.0 Normal <14.0 [facility] Comment on above: Performed By: #### R F #### [facility] [address] [place] [address] Dr. Janell Marquez CBC AUTO DIFFon 10-21-2022 BASO # 0.0 103/ul Normal 0.0-0.1 [facility] Comment on above: Performed By: #### T 7, TSH, CMP, LISANDRA, LIPA, LIPID #### [facility] [address] [place] [address] Dr. Janell Marquez Basophils/100 WBC (Bld) 0.4 % Normal 0.2-2.0 [facility] Comment on above: Performed By: #### T 7, TSH, CMP, LISANDRA, LIPA, LIPID #### [facility] [address] [place] [address] Dr. Janell Marquez EO # 0.0 103/ul Normal 0.0-0.7 [facility] Comment on above: Performed By: #### T 7, TSH, CMP, LISANDRA, LIPA, LIPID #### [facility] [address] [place] [address] [address] Janell Marquez Eosinophils/100 WBC (Bld) 0.7 % Critically low 0.9-7.0 [facility] Comment on above: Performed By: #### T 7, TSH, CMP, LISANDRA, LIPA, LIPID #### [facility] [address] [place] [address] Dr. Janell Marquez Erythrocyte distribution width (RBC) [Ratio] 16.1 % Critically high 11.0-15.0 [facility] Comment on above: Performed By: #### T 7, TSH, CMP, LISANDRA, LIPA, LIPID #### [facility] [address] [place] [address] Dr. Janell Marquez Hematocrit (Bld) [Volume fraction] 48.8 % Normal 42.0-54.0 [facility] Comment on above: Performed By: #### T 7, TSH, CMP, LISANDRA, LIPA, LIPID #### [facility] [address] [place] [address] Dr. Janell Marquez Hemoglobin (Bld) [Mass/Vol] 15.3 g/dL Normal 14.0-18.0 [facility] Comment on above: Performed By: #### T 7, TSH, CMP, LISANDRA, LIPA, LIPID #### [facility] [address] [place] [address] Dr. Janell Marquez IG # 0.02 10e3/ul Normal 0.00-0.03 [facility] Comment on above: Performed By: #### T 7, TSH, CMP, LISANDRA, LIPA, LIPID #### [facility] [address] [place] [address] Dr. Janell Marquez IG % 0.4 % Normal 0.0-0.5 [facility] Comment on above: Performed By: #### T 7, TSH, CMP, LISANDRA, LIPA, LIPID #### [facility] [address] [place] [address] Dr. Janell Marquez LYMPH # 1.3 103/ul Normal 1.2-3.8 [facility] Comment on above: Performed By: #### T 7, TSH, CMP, LISANDRA, LIPA, LIPID #### [facility] [address] [place] [address] Dr. Janell Marquez Lymphocytes/100 WBC (Bld) 29.0 % Normal 20.5-60.0 [facility] Comment on above: Performed By: #### T 7, TSH, CMP, LISANDRA, LIPA, LIPID #### [facility] [address] [place] [address] Dr. Janell Marquez MANUAL DIFF REQ NO Normal [facility] Comment on above: Performed By: #### T 7, TSH, CMP, LISANDRA, LIPA, LIPID #### [facility] [address] [place] [address] Dr. Janell Marquez MCH (RBC) [Entitic mass] 23.5 pg Critically low 25.9-34.0 [facility] Comment on above: Performed By: #### T 7, TSH, CMP, LISANDRA, LIPA, LIPID #### [facility] [address] [place] [address] Dr. Janell Marquez MCHC (RBC) [Mass/Vol] 31.4 g/dL Normal 29.9-35.2 [facility] Comment on above: Performed By: #### T 7, TSH, CMP, LISANDRA, LIPA, LIPID #### [facility] [address] [place] [address] Dr. Janell Marquez MCV (RBC) [Entitic vol] 74.8 fL Critically low 80.0-94.0 [facility] Comment on above: Performed By: #### T 7, TSH, CMP, LISANDRA, LIPA, LIPID #### [facility] [address] [place] [address] Dr. Janell Marquez MONO # 0.3 103/ul Normal 0.3-0.8 [facility] Comment on above: Performed By: #### T 7, TSH, CMP, LISANDRA, LIPA, LIPID #### [facility] [address] [place] [address] Dr. Janell Marquez Monocytes/100 WBC (Bld) 7.4 % Normal 1.7-12.0 [facility] Comment on above: Performed By: #### T 7, TSH, CMP, LISANDRA, LIPA, LIPID #### [facility] [address] [place] [address] [address] Janell Marquez NEUT # 2.9 103/ul Normal 1.4-6.5 [facility] Comment on above: Performed By: #### T 7, TSH, CMP, LISANDRA, LIPA, LIPID #### [facility] [address] [address] [address] Janell Marquez Neutrophils/100 WBC (Bld) 62.1 % Normal 43.0-75.0 [facility] Comment on above: Performed By: #### T 7, TSH, CMP, LISANDRA, LIPA, LIPID #### [facility] [address] [address] [address] Janell Marquez Platelet mean volume (Bld) [Entitic vol] 9.3 fL Critically low 9.5-13.5 [facility] Comment on above: Performed By: #### T 7, TSH, CMP, LISANDRA, LIPA, LIPID #### [facility] [address] [address] [address] Janell Marquez PLT 203 103/ul Normal 150-450 [facility] Comment on above: Performed By: #### T 7, TSH, CMP, LISANDRA, LIPA, LIPID #### [facility] [address] [address] [address] Janell Marquez RBC 6.52 106/ul Critically high 4.70-6.10 [facility] Comment on above: Performed By: #### T 7, TSH, CMP, LISANDRA, LIPA, LIPID #### [facility] [address] [address] [address] Janell Marquez WBC 4.6 103/ul Normal 4.0-11.0 [facility] Comment on above: Performed By: #### T 7, TSH, CMP, LISANDRA, LIPA, LIPID #### [facility] [address] [address] [address] Janell Marquez CRPon 10-21-2022 CRP [Mass/Vol] mg/L Normal <=1.0 [facility] Comment on above: Performed By: #### T 7, TSH, CMP, LISANDRA, LIPA, LIPID #### [facility] [address] [address] [address] Janell Marquez SED RATE WESTERGRENon 2022 SED RATE 30 mm/hr Critically high <=20 [facility] Comment on above: Performed By: #### T 7, TSH, CMP, LISANDRA, LIPA, LIPID #### [facility] [address] [address] [address] Janell Marquez URIC ACID SERUMon 10-21-2022 Urate [Mass/Vol] 4.3 mg/dL Normal 3.5-7.2 [facility] Comment on above: Performed By: #### T 7, TSH, CMP, LISANDRA, LIPA, LIPID #### [facility] [address] [address] [address] Janell Marquez CSF MANUAL DIFFon 10-12-2022 Diff Total, CSF 57 cells counted [facility] Lymph%, CSF 91 % High 50 - 90 % [facility] Edgar%, CSF 9 % Low 10 - 50 % [facility] ic Cell count panel (CSF)on Clarity (CSF) Clear Clear [facility] Clarity (Unsp spec) Not Indicated Clear [facility] Color (CSF) Colorless Colorless [facility] Color (Spun CSF) Not Indicated Colorless [facility] CSF Tube Number Tube 1 [facility] RBC Manual cnt (CSF) [#/Vol] 3 cells/uL 0 - 5 cells/uL [facility] WBC Manual cnt (CSF) [#/Vol] 1 cells/uL 0 - 5 cells/uL [facility] GLUCOSE CSFon 10-12-2022 Glucose (CSF) [Mass/Vol] 57 mg/dL 40 - 70 mg/dL [facility] PROTEIN CSFon 10-12-2022 Protein (CSF) [Mass/Vol] 32 mg/dL 15 - 45 mg/dL [facility] TOURTELLOTTE BLOODon 10-12- 023 [facility] ic ALLIED HEALTHon 05-07-2022 ALLIED HEALTH HNO ID: [id number] Author: Nicole Girard outpatient dietitian Service: Radiology Author Type: Jumpbasting Machine Operator Type: Allied Health Filed: 05/07/2022 1:54 [...] DATA: Not applicable SIGNED BY: Nicole Huffman, outpatient dietitian May 07, 2022 1:31 PM [facility] MRI 3D POST PROCESSINGon MRI 3D POST PROCESSING * * *Final Report* * * DATE OF EXAM: May 07 2022 1:47PM [facility] 0280 - MRI 3D POST PROCESSING / PROCEDURE REASON: Cognitive changes * * * * Physician Interpretation * * * * EXAMINATION: MRI BRAIN WO IVCON, MRI 3D POST PROCESSING CLINICAL HISTORY: Cognitive changes TECHNIQUE: Axial FLORIDALMA FLAIR, FLORIDALMA T2, diffusion and susceptibility weighted imaging without contrast, using the ADNI dementia protocol and 3-D post-processing using the [employer] software at an independent workstation with concurrent [...] = Focal Lesions 2 = Beginning of [place] 3 = Diffuse Involvement of Entire Region [...] results from the analysis charts for details. Fruit Worker: MARISELA Transcribe Date/Time: May 07 2022 2:51P Dictated by : MANISH PRICE MD This examination was interpreted and the report reviewed and electronically signed by: MANISH PRICE MD on May 07 2022 3:06PM EST [id number] CN Normal [facility] MRI BRAIN WO IVCONon 022 MRI BRAIN WO IVCON * * *Final Report* * * DATE OF EXAM: May 07 2022 1:47PM [facility] 0294 - MRI BRAIN WO IVCON / PROCEDURE REASON: Cognitive changes * * * * Physician Interpretation * * * * EXAMINATION: MRI BRAIN WO IVCON, MRI 3D POST PROCESSING CLINICAL HISTORY: Cognitive changes TECHNIQUE: Axial FLORIDALMA FLAIR, FLORIDALMA T2, diffusion and susceptibility weighted imaging without contrast, using the ADNI dementia protocol and 3-D post-processing using the TI[employer] Software software at an independent workstation with concurrent [...] = Focal Lesions 2 = Beginning of [place] 3 = Diffuse Involvement of Entire Region [...] results from the analysis charts for details. Fruit Worker: MARISELA Transcribe Date/Time: May 07 2022 2:51P Dictated by : MANISH PRICE MD This examination was interpreted and the report reviewed and electronically signed by: MANISH PRICE MD on May 07 2022 3:06PM EST [id number] CN Normal [facility] No Panel Informationon 05-07 [facility] MRI BRAIN WO W CONon 022 [...] by: LUCIE TOWNSEND Date: 2022-01-21 17:28 Normal [facility] US CAROTID ART BILon 022 US CAROTID [...] by: LUCIE TOWNSEND Date: 2022-01-21 17:18 Normal [facility] H PYLORI ANTIBODY IGGon 12-19 H. PYLORI IGG ABS 0.72 Index Value Normal 0.00-0.79 [facility] Comment on above: Result Comment: Nega tive <0.80 Equivocal 0.80 - 0.89 Positive >0.89 Performed By: #### H PYLLC #### [facility] [address] [place] [address] [address] Janell Marquez INSULINon 01-13-2022 Insulin 15.8 uIU/mL Normal 2.6-24.9 [facility] Comment on above: Performed By: #### T 7, TSH, CMP, LISANDRA, LIPA, LIPID #### [facility] [address] [place] [address] [address] Janell Marquez VIT D 25-OH LABCORPon 2021 Vitamin D, 25-Hydroxy 29.7 ng/mL Critically low 30.0-100.0 [facility] Comment on above: Result Comment: Nelsy min D deficiency has been defined by the [place] of [employer] and an Endocrine Society practice guideline as a level of serum 25-OH vitamin D less than 20 ng/mL (1,2). The Endocrine Society went on to further define vitamin D insufficiency as a level between 21 and 29 ng/mL (2). 1. IOM ([place] of [employer]). 2010. Dietary reference intakes for calcium and D. [place]: The National Academies Press. 2. Kevin MF, Mey [place], Bharat SPENCER, et al. Evaluation, treatment, and prevention of vitamin D deficiency: an Endocrine Society clinical practice guideline. JCEM. 2010; 96(7):1911-30. Performed By: #### T 7, TSH, CMP, LISANDRA, LIPA, LIPID #### [facility] [address] [place] [address] [address] Janell Marquez AMMONIAon 01-12-2022 Ammonia (P) [Mass/Vol] ug/dL Critically low 11-32 [facility] Comment on above: Performed By: #### T 7, TSH, CMP, LISANDRA, LIPA, LIPID #### [facility] [address] [place] [address] [address] Janell Marquez AMYLASEon 01-12-2022 Amylase [Catalytic activity/Vol] 49 U/L Normal 25-115 [facility] Comment on above: Performed By: #### T 7, TSH, CMP, LISANDRA, LIPA, LIPID #### [facility] [address] [place] [address] Dr. Janell Marquez CBC AUTO DIFFon 01-12-2022 BASO # 0.0 103/ul Normal 0.0-0.1 [facility] Comment on above: Performed By: #### T 7, TSH, CMP, LISANDRA, LIPA, LIPID #### [facility] [address] [place] [address] Dr. Janell Marquez Basophils/100 WBC (Bld) 0.2 % Normal 0.2-2.0 [facility] Comment on above: Performed By: #### T 7, TSH, CMP, LISANDRA, LIPA, LIPID #### [facility] [address] [place] [address] Dr. Janell Marquez EO # 0.0 103/ul Normal 0.0-0.7 [facility] Comment on above: Performed By: #### T 7, TSH, CMP, LISANDRA, LIPA, LIPID #### [facility] [address] [place] [address] Dr. Janell Marquez Eosinophils/100 WBC (Bld) 0.3 % Critically low 0.9-7.0 [facility] Comment on above: Performed By: #### T 7, TSH, CMP, LISANDRA, LIPA, LIPID #### [facility] [address] [place] [address] Dr. Janell Marquez Erythrocyte distribution width (RBC) [Ratio] 16.0 % Critically high 11.0-15.0 [facility] Comment on above: Performed By: #### T 7, TSH, CMP, LISANDRA, LIPA, LIPID #### [facility] [address] [place] [address] Dr. Janell Marquez Hematocrit (Bld) [Volume fraction] 46.8 % Normal 42.0-54.0 [facility] Comment on above: Performed By: #### T 7, TSH, CMP, LISANDRA, LIPA, LIPID #### [facility] [address] [place] [address] Dr. Janell Marquez Hemoglobin (Bld) [Mass/Vol] 14.9 g/dL Normal 14.0-18.0 [facility] Comment on above: Performed By: #### T 7, TSH, CMP, LISANDRA, LIPA, LIPID #### [facility] [address] [place] [address] [address] Janell Marquez IG # 0.01 10e3/ul Normal 0.00-0.03 [facility] Comment on above: Performed By: #### T 7, TSH, CMP, LISANDRA, LIPA, LIPID #### [facility] [address] [place] [address] Dr. Janell Marquez IG % 0.2 % Normal 0.0-0.5 [facility] Comment on above: Performed By: #### T 7, TSH, CMP, LISANDRA, LIPA, LIPID #### [facility] [address] [place] [address] Dr. Janell Marquez LYMPH # 1.0 103/ul Critically low 1.2-3.8 [facility] Comment on above: Performed By: #### T 7, TSH, CMP, LISANDRA, LIPA, LIPID #### [facility] [address] [place] [address] Dr. Janell Marquez Lymphocytes/100 WBC (Bld) 16.2 % Critically low 20.5-60.0 [facility] Comment on above: Performed By: #### T 7, TSH, CMP, LISANDRA, LIPA, LIPID #### [facility] [address] [place] [address] Dr. Janell Marquez MANUAL DIFF REQ NO Normal [facility] Comment on above: Performed By: #### T 7, TSH, CMP, LISANDRA, LIPA, LIPID #### [facility] [address] [place] [address] Dr. Janell Marquez MCH (RBC) [Entitic mass] 23.9 pg Critically low 25.9-34.0 [facility] Comment on above: Performed By: #### T 7, TSH, CMP, LISANDRA, LIPA, LIPID #### [facility] [address] [place] [address] Dr. Janell Marquez MCHC (RBC) [Mass/Vol] 31.8 g/dL Normal 29.9-35.2 [facility] Comment on above: Performed By: #### T 7, TSH, CMP, LISANDRA, LIPA, LIPID #### [facility] [address] [place] [address] [address] Janell Marquez MCV (RBC) [Entitic vol] 75.0 fL Critically low 80.0-94.0 [facility] Comment on above: Performed By: #### T 7, TSH, CMP, LISADNRA, LIPA, LIPID #### [facility] [address] [place] [address] Dr. Janell Marquez MONO # 0.4 103/ul Normal 0.3-0.8 [facility] Comment on above: Performed By: #### T 7, TSH, CMP, LISANDRA, LIPA, LIPID #### [facility] [address] [place] [address] Dr. Janell Marquez Monocytes/100 WBC (Bld) 6.0 % Normal 1.7-12.0 [facility] Comment on above: Performed By: #### T 7, TSH, CMP, LISANDRA, LIPA, LIPID #### [facility] [address] [place] [address] Dr. Janell Marquez NEUT # 4.5 103/ul Normal 1.4-6.5 [facility] Comment on above: Performed By: #### T 7, TSH, CMP, LISANDRA, LIPA, LIPID #### [facility] [address] [place] [address] Dr. Janell Marquez Neutrophils/100 WBC (Bld) 77.1 % Critically high 43.0-75.0 [facility] Comment on above: Performed By: #### T 7, TSH, CMP, LISANDRA, LIPA, LIPID #### [facility] [address] [place] [address] Dr. Janell Marquez Platelet mean volume (Bld) [Entitic vol] 9.3 fL Critically low 9.5-13.5 [facility] Comment on above: Performed By: #### T 7, TSH, CMP, LISANDRA, LIPA, LIPID #### [facility] [address] [place] [address] Dr. Janell Marquez PLT 202 103/ul Normal 150-450 [facility] Comment on above: Performed By: #### T 7, TSH, CMP, LISANDRA, LIPA, LIPID #### [facility] [address] [place] [address] Dr. Janell Marquez RBC 6.24 106/ul Critically high 4.70-6.10 [facility] Comment on above: Performed By: #### T 7, TSH, CMP, LISANDRA, LIPA, LIPID #### [facility] [address] [address] [address] Janell Marquez WBC 5.9 103/ul Normal 4.0-11.0 [facility] Comment on above: Performed By: #### T 7, TSH, CMP, LISANDRA, LIPA, LIPID #### [facility] [address] [place] [address] Dr. Janell Marquez FREE THYROXINE INDEX T7on FTI 3.14 Normal 1.30-4.50 [facility] Comment on above: Performed By: #### T 7, TSH, CMP, LISANDRA, LIPA, LIPID #### [facility] [address] [place] [address] Dr. Janell Marquez T3U 32.0 % Critically low 33.0-40.0 [facility] Comment on above: Performed By: #### T 7, TSH, CMP, LISANDRA, LIPA, LIPID #### [facility] [address] [place] [address] Dr. Janell Marquez T4 [Mass/Vol] 9.80 ug/dL Normal 4.50-12.10 [facility] Comment on above: Performed By: #### T 7, TSH, CMP, LISANDRA, LIPA, LIPID #### [facility] [address] [place] [address] Dr. Janell Marquez GLYCOHEMOGLOBIN A1Con 2021 ADA RECOMMENDATION SEE BELOW Normal [facility] Comment on above: Result Comment: ADA RECOMMENDED LIMIT 4.0 - 6.0 ADA THERAPEUTIC TARGET < 7.0 ACTION SUGGESTED > 7.0 Performed By: #### A 1C #### [facility] [address] [place] [address] Dr. Janell Marquez Glucose [Mass/Vol] 120 mg/dL Normal [facility] Comment on above: Performed By: #### A 1C #### [facility] [address] [place] [address] Dr. Janell Marquez HbA1c (Bld) [Mass fraction] 5.8 % Normal 4.5-6.2 [facility] Comment on above: Performed By: #### A 1C #### [facility] [address] [place] [address] Dr. Janell Marquez IRONon 01-12-2022 Iron [Mass/Vol] 70.0 ug/dL Normal 65.0-175.0 [facility] Comment on above: Performed By: #### T 7, TSH, CMP, LISANDRA, LIPA, LIPID #### [facility] [address] [place] [address] Dr. Janell Marquez LIPASEon 01-12-2022 Lipase [Catalytic activity/Vol] 72.0 U/L Critically low 73.0-393.0 [facility] Comment on above: Performed By: #### T 7, TSH, CMP, LISANDRA, LIPA, LIPID #### [facility] [address] [place] [address] Dr. Janell Marquez LIPID PROFILEon 01-12-2022 CHOL-HDL RATIO NORM SEE BELOW Normal [facility] Comment on above: Result Comment: 3.3 - 4.4 LOW RISK 4.4 - 7.1 AVERAGE RISK 7.1 - 11.0 MODERATE RISK >11.0 HIGH RISK Performed By: #### T 7, TSH, CMP, LISANDRA, LIPA, LIPID #### [facility] [address] [place] [address] Dr. Janell Marquez Cholesterol [Mass/Vol] 220 mg/dL Critically high <=200 [facility] Comment on above: Performed By: #### T 7, TSH, CMP, LISANDRA, LIPA, LIPID #### [facility] [address] [place] [address] Dr. Janell Marquez Cholesterol in HDL [Mass/Vol] 47 mg/dL Normal 40-60 [facility] Comment on above: Performed By: #### T 7, TSH, CMP, LISANDRA, LIPA, LIPID #### [facility] [address] [address] [address] Janell Marquez Cholesterol in LDL [Mass/Vol] 157.4 mg/dL Normal [facility] Comment on above: Performed By: #### T 7, TSH, CMP, LISANDRA, LIPA, LIPID #### [facility] [address] [address] [address] Janell Marquez Cholesterol.total/Cho lesterol in HDL [Mass ratio] 4.7 {ratio} Normal [facility] Comment on above: Performed By: #### T 7, TSH, CMP, LISANDRA, LIPA, LIPID #### [facility] [address] [address] [address] Janell Marquez HDL NORMAL > or = 60 mg/dl - LOW CARDIOVASCULAR RISK <40 mg/dl - HIGH CARDIOVASCULAR RISK Normal [facility] Comment on above: Performed By: #### T 7, TSH, CMP, LISANDRA, LIPA, LIPID #### [facility] [address] [place] [address] Dr. Janell Marquez LDL CALC NORMAL SEE BELOW Normal [facility] Comment on above: Result Comment: <100 mg/dl OPTIMAL 100 - 129 mg/dl NEAR OR ABOVE OPTIMAL 130 - 159 mg/dl BORDERLINE HIGH 160 - 189 mg/dl HIGH >190 mg/dl VERY HIGH Performed By: #### T 7, TSH, CMP, LISANDRA, LIPA, LIPID #### [facility] [address] [address] [address] Janell Marquez Triglyceride [Mass/Vol] 78 mg/dL Normal <=150 [facility] Comment on above: Performed By: #### T 7, TSH, CMP, LISANDRA, LIPA, LIPID #### [facility] [address] [address] [address] Janell Marquez VLDL CALC 15.6 mg/dL Normal [facility] Comment on above: Performed By: #### T 7, TSH, CMP, LISANDRA, LIPA, LIPID #### [facility] [address] [address] [address] Janell Marquez PROF 14(COMP METB)on 022 Albumin [Mass/Vol] 3.5 g/dL Normal 3.4-5.0 [facility] Comment on above: Performed By: #### T 7, TSH, CMP, LISANDRA, LIPA, LIPID #### [facility] [address] [place] [address] Dr. Janell Marquez Albumin/Globulin [Mass ratio] 0.9 {ratio} Normal [facility] Comment on above: Performed By: #### T 7, TSH, CMP, LISANDRA, LIPA, LIPID #### [facility] [address] [place] [address] Dr. Janell Marquez ALP [Catalytic activity/Vol] 69 U/L Normal 46-116 [facility] Comment on above: Performed By: #### T 7, TSH, CMP, LISANDRA, LIPA, LIPID #### [facility] [address] [place] [address] Dr. Janell Marquez ALT [Catalytic activity/Vol] 19 U/L Normal 16-63 [facility] Comment on above: Performed By: #### T 7, TSH, CMP, LISANDRA, LIPA, LIPID #### [facility] [address] [place] [address] Dr. Janell Marquez Anion gap [Moles/Vol] 12.1 mmol/L Normal [facility] Comment on above: Performed By: #### T 7, TSH, CMP, LISANDRA, LIPA, LIPID #### [facility] [address] [place] [address] Dr. Janell Marquez AST [Catalytic activity/Vol] 15 U/L Normal 15-37 [facility] Comment on above: Performed By: #### T 7, TSH, CMP, LISANDRA, LIPA, LIPID #### [facility] [address] [place] [address] Dr. Janell Marquez Bilirubin [Mass/Vol] 0.8 mg/dL Normal 0.2-1.0 [facility] Comment on above: Performed By: #### T 7, TSH, CMP, LISANDRA, LIPA, LIPID #### [facility] [address] [place] [address] Dr. Janell Marquez Calcium [Mass/Vol] 8.5 mg/dL Normal 8.5-10.1 [facility] Comment on above: Performed By: #### T 7, TSH, CMP, LISANDRA, LIPA, LIPID #### [facility] [address] [address] [address] Janell Marquez Chloride [Moles/Vol] 105 mmol/L Normal 98-107 [facility] Comment on above: Performed By: #### T 7, TSH, CMP, LISANDRA, LIPA, LIPID #### [facility] [address] [address] [address] Janell Marquez CO2 [Moles/Vol] 28.0 mmol/L Normal 21.0-32.0 [facility] Comment on above: Performed By: #### T 7, TSH, CMP, LISANDRA, LIPA, LIPID #### [facility] [address] [address] [address] Janell Marquez Creatinine [Mass/Vol] 1.11 mg/dL Normal 0.70-1.30 [facility] Comment on above: Performed By: #### T 7, TSH, CMP, LISANDRA, LIPA, LIPID #### [facility] [address] [address] [address] Janell Marquez EGFR-AF POLISH >60 Normal >=60 [facility] Comment on above: Performed By: #### T 7, TSH, CMP, LISANDRA, LIPA, LIPID #### [facility] [address] [address] [address] Janell Marquez EGFR-NON AF POLISH >60 Normal >=60 [facility] Comment on above: Performed By: #### T 7, TSH, CMP, LISANDRA, LIPA, LIPID #### [facility] [address] [address] [address] Janell Marquez Globulin (S) [Mass/Vol] 3.7 g/dL Normal [facility] Comment on above: Performed By: #### T 7, TSH, CMP, LISANDRA, LIPA, LIPID #### [facility] [address] [address] [address] Janell Marquez Glucose [Mass/Vol] 115 mg/dL Critically high 74-106 [facility] Comment on above: Performed By: #### T 7, TSH, CMP, LISANDRA, LIPA, LIPID #### [facility] [address] [place] [address] Dr. Janell Marquez Potassium [Moles/Vol] 4.1 mmol/L Normal 3.5-5.1 [facility] Comment on above: Performed By: #### T 7, TSH, CMP, LISANDRA, LIPA, LIPID #### [facility] [address] [place] [address] Dr. Janell Marquez Protein [Mass/Vol] 7.2 g/dL Normal 6.4-8.2 [facility] Comment on above: Performed By: #### T 7, TSH, CMP, LISANDRA, LIPA, LIPID #### [facility] [address] [place] [address] Dr. Janell Marquez Sodium [Moles/Vol] 141 mmol/L Normal 136-145 [facility] Comment on above: Performed By: #### T 7, TSH, CMP, LISANDRA, LIPA, LIPID #### [facility] [address] [place] [address] Dr. Janell Marquez Urea nitrogen [Mass/Vol] 16.0 mg/dL Normal 7.0-18.0 [facility] Comment on above: Performed By: #### T 7, TSH, CMP, LISANDRA, LIPA, LIPID #### [facility] [address] [place] [address] Dr. Janell Marquez Urea nitrogen/Creatinine [Mass ratio] 14.4 mg/mg Normal [facility] Comment on above: Performed By: #### T 7, TSH, CMP, LISANDRA, LIPA, LIPID #### [facility] [address] [place] [address] Dr. Janell Marquez TSHon 01-12-2022 TSH 1.412 uIU/mL Normal 0.358-3.740 [facility] Comment on above: Performed By: #### T 7, TSH, CMP, LISANDRA, LIPA, LIPID #### [facility] [address] [place] [address] Dr. Janell Marquez VIT B12 AND FOLATEon Cobalamin (Vitamin B12) [Mass/Vol] 411.0 pg/mL Normal 193.0-986.0 [facility] Comment on above: Performed By: #### T 7, TSH, CMP, LISANDRA, LIPA, LIPID #### [facility] [address] [address] [address] Janell Marquez FOLATE 11.10 ng/mL Normal 8.60-58.90 [facility] Comment on above: Performed By: #### T 7, TSH, CMP, LISANDRA, LIPA, LIPID #### [facility] [address] [address] [address] Janell Marquez BASIC METABOLIC PANELon Calcium [Mass/Vol] 8.3 mg/dL Low 8.6-10.3 [facility] Comment on above: Order Comment: No: D o not add to previous draw Performed By: #### 0 0071 #### [facility] [address] [place] [address], [place] Chloride [Moles/Vol] 104 mmol/L Normal 98-107 [facility] Comment on above: Order Comment: No: D o not add to previous draw Performed By: #### 0 0071 #### [facility] [address] [place] [address], [place] CO2 [Moles/Vol] 29 mmol/L Normal 21-31 [facility] Comment on above: Order Comment: No: D o not add to previous draw Performed By: #### 0 0071 #### [facility] [address] [place] [address], [place] Creatinine [Mass/Vol] 0.81 mg/dL Normal 0.70-1.30 [facility] Comment on above: Order Comment: No: D o not add to previous draw Performed By: #### 0 0071 #### [facility] [address] [place] [address], [place] GFR/1.73 sq M.predicted among blacks MDRD (S/P/Bld) [Vol rate/Area] mL/min/{1.73_m2} Normal >60 [facility] Comment on above: Order Comment: No: D o not add to previous draw Performed By: #### 0 0071 #### [facility] [address] [place] [address], [place] GFR/1.73 sq M.predicted among non-blacks MDRD (S/P/Bld) [Vol rate/Area] mL/min/{1.73_m2} Normal >60 [facility] Comment on above: Order Comment: No: D o not add to previous draw Performed By: #### 0 0071 #### [facility] [address] [place] [address], [place] Glucose [Mass/Vol] 144 mg/dL High 70-100 [facility] Comment on above: Order Comment: No: D o not add to previous draw Performed By: #### 0 0071 #### [facility] [address] [place] [address], [place] Potassium [Moles/Vol] 3.6 mmol/L Normal 3.5-5.1 [facility] Comment on above: Order Comment: No: D o not add to previous draw Performed By: #### 0 0071 #### [facility] [address] [place] [address], [place] Sodium [Moles/Vol] 139 mmol/L Normal 136-145 [facility] Comment on above: Order Comment: No: D o not add to previous draw Performed By: #### 0 0071 #### [facility] [address] [place] [address], [place] Urea nitrogen [Mass/Vol] 9 mg/dL Normal 7-25 [facility] Comment on above: Order Comment: No: D o not add to previous draw Performed By: #### 0 0071 #### [facility] [address] CBC COMPLETE BLOOD COUNTon 0 07-26-2020 Erythrocyte distribution width (RBC) [Ratio] 14.6 % Normal 11.5-15.0 [facility] Comment on above: Order Comment: No: D o not add to previous draw Performed By: #### 0 0071 #### [facility] [address] [place] [address], [facility] Hematocrit (Bld) [Volume fraction] 38.8 % Low 39.0-50.0 [facility] Comment on above: Order Comment: No: D o not add to previous draw Performed By: #### 0 0071 #### [facility] [address] Hemoglobin (Bld) [Mass/Vol] 12.1 g/dL Low 13.0-17.0 [facility] Comment on above: Order Comment: No: D o not add to previous draw Performed By: #### 0 0071 #### [facility] [address] [place] [address], [facility] MCH (RBC) [Entitic mass] 23.7 pg Low 27.0-33.0 [facility] Comment on above: Order Comment: No: D o not add to previous draw Performed By: #### 0 0071 #### [facility] [address] [place] [address], [facility] MCHC (RBC) [Mass/Vol] 31.2 g/dL Low 32.0-35.0 [facility] Comment on above: Order Comment: No: D o not add to previous draw Performed By: #### 0 0071 #### [facility] [address] [place] [address], [facility] MCV (RBC) [Entitic vol] 75.9 fL Low 82.0-98.0 [facility] Comment on above: Order Comment: No: D o not add to previous draw Performed By: #### 0 0071 #### [facility] [address] [place] [address], [facility] Nucleated RBC/100 WBC (Bld) [Ratio] 0 % Normal 0-0 [facility] Comment on above: Order Comment: No: D o not add to previous draw Performed By: #### 0 0071 #### [facility] [address] [place] [address], [facility] PLAT CNT 182 10*3/uL Normal 150-400 [facility] Comment on above: Order Comment: No: D o not add to previous draw Performed By: #### 0 0071 #### [facility] [address] [facility] [place] [address], [facility] RBC (Bld) [#/Vol] 5.11 10*6/uL Normal 4.20-5.70 The [facility] Comment on above: Order Comment: No: D o not add to previous draw Performed By: #### 0 0071 #### [facility] [address] [facility] [place] [address], [facility] WBC (Bld) [#/Vol] 3.64 10*3/uL Low 4.00-10.60 [facility] Comment on above: Order Comment: No: D o not add to previous draw Performed By: #### 0 0071 #### [facility] [address] [facility] [place] [address], [facility] MAGNESIUM BLOODon 07-26-2020 Magnesium [Mass/Vol] 1.8 mg/dL Low 1.9-2.7 [facility] Comment on above: Order Comment: No: D o not add to previous draw Performed By: #### 1 0070, [id number] #### [facility] [address] [place] [address], [facility] BASIC METABOLIC PANELon Calcium [Mass/Vol] 8.4 mg/dL Low 8.6-10.3 The [facility] Comment on above: Order Comment: No: D o not add to previous draw Performed By: #### 1 69, [id number] #### [facility] [address] [place] [address], [place] Chloride [Moles/Vol] 104 mmol/L Normal 98-107 [facility] Comment on above: Order Comment: No: D o not add to previous draw Performed By: #### 1 69, [id number] #### [facility] [address] [place] [address], [place] CO2 [Moles/Vol] 27 mmol/L Normal 21-31 [facility] Comment on above: Order Comment: No: D o not add to previous draw Performed By: #### 1 69, [id number] #### [facility] [address] [place] [address], [place] Creatinine [Mass/Vol] 0.83 mg/dL Normal 0.70-1.30 [facility] Comment on above: Order Comment: No: D o not add to previous draw Performed By: #### 1 69, [id number] #### [facility] [address] [place] [address], [place] GFR/1.73 sq M.predicted among blacks MDRD (S/P/Bld) [Vol rate/Area] mL/min/{1.73_m2} Normal >60 [facility] Comment on above: Order Comment: No: D o not add to previous draw Performed By: #### 1 69, [id number] #### [facility] [address] [place] [address], [place] GFR/1.73 sq M.predicted among non-blacks MDRD (S/P/Bld) [Vol rate/Area] mL/min/{1.73_m2} Normal >60 [facility] Comment on above: Order Comment: No: D o not add to previous draw Performed By: #### 1 69, [id number] #### [facility] [address] [place] [address], [facility] Glucose [Mass/Vol] 162 mg/dL High 70-100 [facility] Comment on above: Order Comment: No: D o not add to previous draw Performed By: #### 1 69, [id number] #### [facility] [address] [place] [address], [facility] Potassium [Moles/Vol] 3.4 mmol/L Low 3.5-5.1 [facility] Comment on above: Order Comment: No: D o not add to previous draw Performed By: #### 1 69, [id number] #### [facility] [address] [place] [id number], [facility] Sodium [Moles/Vol] 137 mmol/L Normal 136-145 The [facility] Comment on above: Order Comment: No: D o not add to previous draw Performed By: #### 1 69, [id number] #### [facility] [address] [place] [id number], [facility] Urea nitrogen [Mass/Vol] 18 mg/dL Normal 7-25 [facility] Comment on above: Order Comment: No: D o not add to previous draw Performed By: #### 1 69, [id number] #### [facility] [address] [place] [id number], [facility] CBC COMPLETE BLOOD COUNTon 0 - Erythrocyte distribution width (RBC) [Ratio] 15.2 % High 11.5-15.0 [facility] Comment on above: Order Comment: No: D o not add to previous draw Performed By: #### 0 1 #### [facility] [address] [place] [address], [facility] Hematocrit (Bld) [Volume fraction] 40.7 % Normal 39.0-50.0 [facility] Comment on above: Order Comment: No: D o not add to previous draw Performed By: #### 0 0071 #### [facility] [address] [place] [address], [facility] Hemoglobin (Bld) [Mass/Vol] 12.7 g/dL Low 13.0-17.0 [facility] Comment on above: Order Comment: No: D o not add to previous draw Performed By: #### 0 0071 #### [facility] [address] [facility] [place] [place] [address], [facility] MCH (RBC) [Entitic mass] 23.3 pg Low 27.0-33.0 [facility] Comment on above: Order Comment: No: D o not add to previous draw Performed By: #### 0 0071 #### [facility] [address] [place] [address], [facility] MCHC (RBC) [Mass/Vol] 31.2 g/dL Low 32.0-35.0 [facility] Comment on above: Order Comment: No: D o not add to previous draw Performed By: #### 0 0071 #### [facility] [address] [place] [address], [facility] MCV (RBC) [Entitic vol] 74.8 fL Low 82.0-98.0 [facility] Comment on above: Order Comment: No: D o not add to previous draw Performed By: #### 0 0071 #### [facility] [address] [place] [address], [facility] Nucleated RBC/100 WBC (Bld) [Ratio] 0 % Normal 0-0 [facility] Comment on above: Order Comment: No: D o not add to previous draw Performed By: #### 0 0071 #### [facility] [address] [place] [address], [facility] PLAT CNT 207 10*3/uL Normal 150-400 The [facility] Comment on above: Order Comment: No: D o not add to previous draw Performed By: #### 0 0071 #### [facility] [address] [place] [address], [facility] RBC (Bld) [#/Vol] 5.44 10*6/uL Normal 4.20-5.70 The [facility] Comment on above: Order Comment: No: D o not add to previous draw Performed By: #### 0 0071 #### [facility] [address] WBC (Bld) [#/Vol] 3.05 10*3/uL Low 4.00-10.60 [facility] Comment on above: Order Comment: No: D o not add to previous draw Performed By: #### 0 0071 #### [facility] [address] [facility] [address] MAGNESIUM BLOODon 07-25-2020 Magnesium [Mass/Vol] 1.8 mg/dL Low 1.9-2.7 [facility] Comment on above: Order Comment: No: D o not add to previous draw Performed By: #### 1 0070, [id number] #### [facility] [address] [facility] [address] POC GLUCOSE LABon 07-25-2020 Glucose [Mass/Vol] 155 mg/dL High 70-100 The [facility] Comment on above: Performed By: #### 0 0071, [id number] #### [facility] [address] [facility]. [address] *SARS-CoV-2 COVID-19on 07-24 SARS-CoV-2 (COVID-19) RNA LILLIANA+probe Ql (Unsp spec) Not detected Normal Not Detected [facility] Comment on above: Order Comment: No: D o not add to previous draw Performed By: #### 0 0071, [id number] #### [facility] [address] CBC W/DIFFon 07-24-2020 ABS IMM GRANS 0.0 10*3/uL Normal 0.0-0.2 The [facility] Comment on above: Performed By: #### 0 0071 #### [facility] [address] [place] [address], [facility] ABS NEUTROPHILS 2.0 10*3/uL Normal 1.6-7.6 [facility] Comment on above: Performed By: #### 0 0071 #### [facility] [address] [place] [address], [facility] Basophils (Bld) [#/Vol] 0.0 10*3/uL Normal 0.0-0.2 [facility] Comment on above: Performed By: #### 0 0071 #### [facility] [address] [place] [address], [place] [facility] Basophils/100 WBC (Bld) 0.4 % Normal 0.0-1.0 [facility] Comment on above: Performed By: #### 0 0071 #### [facility] [address] [facility] [place] [address], [facility] Eosinophils (Bld) [#/Vol] 0.0 10*3/uL Normal 0.0-0.5 [facility] Comment on above: Performed By: #### 0 0071 #### [facility] [address] [place] [address], [facility] Eosinophils/100 WBC (Bld) 0.7 % Normal 0.0-6.0 [facility] Comment on above: Performed By: #### 0 0071 #### [facility] [address] [place] [address], [facility] Erythrocyte distribution width (RBC) [Ratio] 15.8 % High 11.5-15.0 [facility] Comment on above: Performed By: #### 0 0071 #### [facility] [address] [place] [address], [facility] Hematocrit (Bld) [Volume fraction] 45.5 % Normal 39.0-50.0 [facility] Comment on above: Performed By: #### 0 0071 #### [facility] [address] [place] [address], [facility] Hemoglobin (Bld) [Mass/Vol] 14.4 g/dL Normal 13.0-17.0 [facility] Comment on above: Performed By: #### 0 0071 #### [facility] [address] [place] [address], [facility] IMMATURE GRANS 0.4 % Normal 0.0-1.0 [facility] Comment on above: Performed By: #### 0 0071 #### [facility] [address] [place] [address], [facility] Lymphocytes (Bld) [#/Vol] 0.4 10*3/uL Low 1.2-4.0 [facility] Comment on above: Performed By: #### 0 0071 #### [facility] [address] Lymphocytes/100 WBC (Bld) 14.5 % Low 20.0-45.0 [facility] Comment on above: Performed By: #### 0 0071 #### [facility] [address] [place] [address], [facility] MCH (RBC) [Entitic mass] 23.7 pg Low 27.0-33.0 [facility] Comment on above: Performed By: #### 0 0071 #### [facility] [address] [place] [address], [facility] MCHC (RBC) [Mass/Vol] 31.6 g/dL Low 32.0-35.0 [facility] Comment on above: Performed By: #### 0 0071 #### [facility] [address] [place] [address], [facility] MCV (RBC) [Entitic vol] 75.0 fL Low 82.0-98.0 [facility] Comment on above: Performed By: #### 0 0071 #### [facility] [address] [place] [address], [facility] Monocytes (Bld) [#/Vol] 0.3 10*3/uL Normal 0.1-1.0 [facility] Comment on above: Performed By: #### 0 0071 #### [facility] [address] [facility] [place] [address], [facility] MONOS 12.3 % High 5.0-12.0 [facility] Comment on above: Performed By: #### 0 0071 #### [facility] [address] [place] [address], [facility] Neutrophils/100 WBC (Bld) 71.7 % Normal 40.0-72.0 [facility] Comment on above: Performed By: #### 0 0071 #### [facility] [address] [place] [address], [facility] Nucleated RBC/100 WBC (Bld) [Ratio] 0 % Normal 0-0 [facility] Comment on above: Performed By: #### 0 0071 #### [facility] [address] [facility] [place] [address], [facility] PLAT CNT 225 10*3/uL Normal 150-400 [facility] Comment on above: Performed By: #### 0 0071 #### [facility] [address] [facility] [place] [address], [facility] RBC (Bld) [#/Vol] 6.07 10*6/uL High 4.20-5.70 [facility] Comment on above: Performed By: #### 0 0071 #### [facility] [address] [place] [address], [facility] WBC (Bld) [#/Vol] 2.76 10*3/uL Low 4.00-10.60 [facility] Comment on above: Performed By: #### 0 0071 #### [facility] [address] [place] [address], [place] COMP METABOLIC PANELon 07-24 Albumin [Mass/Vol] 3.7 g/dL Normal 3.5-5.7 [facility] Comment on above: Performed By: #### 3 5200, 07643, 43443 #### [facility] [address] [place] [address], [place] ALKALINE PHOSPH 58 IU/L Normal 34-104 [facility] Comment on above: Performed By: #### 3 5200, 28004, 14769 #### [facility] [address] [place] [address], [place] ALT [Catalytic activity/Vol] 12 U/L Normal 7-52 [facility] Comment on above: Performed By: #### 3 5200, 23792, 39058 #### [facility] [address] [place] [address], [place] AST [Catalytic activity/Vol] 15 U/L Normal 13-39 [facility] Comment on above: Performed By: #### 3 5200, 69472, 22241 #### [facility] [address] [place] [address], [place] Bilirubin [Mass/Vol] 1.3 mg/dL High 0.3-1.0 [facility] Comment on above: Performed By: #### 3 5200, 64014, 08702 #### [facility] [address] [place] [address], [place] Calcium [Mass/Vol] 8.7 mg/dL Normal 8.6-10.3 [facility] Comment on above: Performed By: #### 3 5200, 72550, 13355 #### [facility] [address] [place] [address], [place] Chloride [Moles/Vol] 99 mmol/L Normal 98-107 [facility] Comment on above: Performed By: #### 3 5200, 77788, 91576 #### [facility] [address] [place] [address], [place] CO2 [Moles/Vol] 25 mmol/L Normal 21-31 [facility] Comment on above: Performed By: #### 3 5200, 97288, 05815 #### [facility] [address] [place] [address], [place] Creatinine [Mass/Vol] 1.01 mg/dL Normal 0.70-1.30 [facility] Comment on above: Performed By: #### 3 5200, 20385, 01543 #### [facility] [address] [place] [address], [place] GFR/1.73 sq M.predicted among blacks MDRD (S/P/Bld) [Vol rate/Area] mL/min/{1.73_m2} Normal >60 [facility] Comment on above: Performed By: #### 3 5200, 01641, 08752 #### [facility] [address] [place] [address], [place] GFR/1.73 sq M.predicted among non-blacks MDRD (S/P/Bld) [Vol rate/Area] mL/min/{1.73_m2} Normal >60 [facility] Comment on above: Performed By: #### 3 5200, 09552, 27732 #### [facility] [address] [place] [address], [place] Glucose [Mass/Vol] 142 mg/dL High 70-100 [facility] Comment on above: Performed By: #### 3 5200, 07527, 47694 #### [facility] [address] [place] [address], [place] Potassium [Moles/Vol] 3.9 mmol/L Normal 3.5-5.1 [facility] Comment on above: Performed By: #### 3 5200, 84867, 41127 #### [facility] [address] [facility] [place] [address], [facility] Protein [Mass/Vol] 6.6 g/dL Normal 6.0-8.3 [facility] Comment on above: Performed By: #### 3 5200, 78214, 69640 #### [facility] [address] [facility]. [place], [place] [id number] [place] [address] Sodium [Moles/Vol] 134 mmol/L Low 136-145 [facility] Comment on above: Performed By: #### 3 5200, 20049, 30741 #### [facility] [address] [place] [address], [facility] Urea nitrogen [Mass/Vol] 20 mg/dL Normal 7-25 [facility] Comment on above: Performed By: #### 3 5200, 27656, 06090 #### [facility] [address] [place], [place] [id number] [place] [address] CT ABDOMEN AND PELVIS W IV C ONTRASTon 07-24-2020 CT ABDOMEN AND PELVIS W IV CONTRAST [facility] Department of Radiology [address] [place] [id number] Patient Name: NOÉ JEFFERY : 1965 Sex: M Age: Race: Other Pt. Location: [facility] Patient Status: E Ordered Date: 07/24/2020 3:15:00 [...] achievable. Electronically signed: Miguelito Balderas. Transcribed by: [email or web address], User Resident: Electronically Signed by: MIGUELITO BALDERAS @ 07/24/2020 04:14 PM Normal [facility] Comment on above: Order Comment: No: D o not add to previous draw LACTATE BLOODon 07-24-2020 Lactate [Moles/Vol] 1.0 mmol/L Normal 0.5-2.2 [facility] Comment on above: Performed By: #### 1 0054 #### [address] LIPASE BLOODon 07-24-2020 LIPASE 7 Units/L Low 11-82 [facility] Comment on above: Performed By: #### 3 5200, 97742, 74702 #### [address] PORTABLE CHEST 1 VIEWon PORTABLE CHEST 1 VIEW [facility] Department of Radiology [address] [place] [address] Patient Name: NOÉ JEFFERY : 1965 Sex: M Age: Race: Other Pt. Location: [facility] Patient Status: E Ordered Date: 07/24/2020 3:15:00 [...] indicated. Electronically signed: Miguelito Balderas. Transcribed by: [email or web address], User Resident: Electronically Signed by: MIGUELITO BALDERAS @ 07/24/2020 03:58 PM Normal [facility] Comment on above: Order Comment: No: D o not add to previous draw TROPONIN-Ion 07-24-2020 Troponin I.cardiac [Mass/Vol] 0.00 ng/mL Normal 0.00-0.04 [facility] Comment on above: Result Comment: REFE RENCE RANGES: 0.00 - 0.14 ng/ml NEGATIVE 0.15 - 0.25 ng/ml INDETERMINATE > 0.25 ng/ml INDICATIVE OF AN M.I. Performed By: #### 3 5200, 01059, 91521 #### [facility] [address] URINALYSIS REFLEXon 07-24-19 Appearance (U) CLEAR Normal CLEAR [facility] Comment on above: Order Comment: No: D o not add to previous draw Performed By: #### 0 0071, 19823 #### [facility] [address] [place] [address], [place] Bilirubin Ql (U) Negative Normal NEGATIVE [facility] Comment on above: Order Comment: No: D o not add to previous draw Performed By: #### 0 0071, 86511 #### [facility] [address] [place] [address], [place] Color (U) ANEL Abnormal YELLOW [facility] Comment on above: Order Comment: No: D o not add to previous draw Performed By: #### 0 0071, 07766 #### [facility] [address] [place] [address], [place] Glucose Ql (U) Negative Normal NEGATIVE [facility] Comment on above: Order Comment: No: D o not add to previous draw Performed By: #### 0 0071, 37862 #### [facility] [address] [place] [address], [place] Hemoglobin Ql (U) Negative Normal NEGATIVE The [facility] Comment on above: Order Comment: No: D o not add to previous draw Performed By: #### 0 0071, 11903 #### [facility] [address] [place] [address], [place] KETONE 20 mg/dL Abnormal NEGATIVE [facility] Comment on above: Order Comment: No: D o not add to previous draw Performed By: #### 0 0071, 89328 #### [facility] [address] [place] [address], [place] LEUK DINO Negative Normal NEGATIVE [facility] Comment on above: Order Comment: No: D o not add to previous draw Performed By: #### 0 0071, 64530 #### [facility] [address] [place] [address], [place] MICRO NOT DONE Normal [facility] Comment on above: Order Comment: No: D o not add to previous draw Result Comment: Micr oscopics not performed on urines with negative chemical reactions unless requested in original order Performed By: #### 0 0071, 73421 #### [facility] [address] [place] [address], [facility] Nitrite Ql (U) Negative Normal NEGATIVE [facility] Comment on above: Order Comment: No: D o not add to previous draw Performed By: #### 0 0071, 68482 #### [facility] [address] [place] [address], [facility] pH (U) 5.0 [pH] Normal 5.0-8.0 [facility] Comment on above: Order Comment: No: D o not add to previous draw Performed By: #### 0 0071, 67945 #### [facility] [address] [place] [address], [facility] Protein Ql (U) Negative Normal NEGATIVE [facility] Comment on above: Order Comment: No: D o not add to previous draw Performed By: #### 0 0071, 45074 #### [facility] [address] [facility] [place] [place] [address], [facility] SPEC GRAV 1.084 High 1.015-1.020 [facility] Comment on above: Order Comment: No: D o not add to previous draw Result Comment: DONE BY DILUTION Performed By: #### 0 0071, 09677 #### [facility] [address] [facility] [place] [address], [facility] BASIC METABOLIC PANELon 02-0 Calcium [Mass/Vol] 8.8 mg/dL Normal 8.6-10.3 [facility] Comment on above: Order Comment: No: D o not add to previous draw Performed By: #### 0 0071, 90512 #### [facility] [address] [place] [address], [facility] Chloride [Moles/Vol] 103 mmol/L Normal 98-107 [facility] Comment on above: Order Comment: No: D o not add to previous draw Performed By: #### 0 0071, 89403 #### [facility] [address] [place] [address], [place] CO2 [Moles/Vol] 27 mmol/L Normal 21-31 [facility] Comment on above: Order Comment: No: D o not add to previous draw Performed By: #### 0 0071, 51626 #### [facility] [address] [place] [address], [facility] Creatinine [Mass/Vol] 0.87 mg/dL Normal 0.70-1.30 [facility] Comment on above: Order Comment: No: D o not add to previous draw Performed By: #### 0 0071, 77269 #### [facility] [address] [place] [address], [facility] GFR/1.73 sq M.predicted among blacks MDRD (S/P/Bld) [Vol rate/Area] mL/min/{1.73_m2} Normal >60 [facility] Comment on above: Order Comment: No: D o not add to previous draw Performed By: #### 0 0071, 75855 #### [facility] [address] [place] [address], [place] GFR/1.73 sq M.predicted among non-blacks MDRD (S/P/Bld) [Vol rate/Area] mL/min/{1.73_m2} Normal >60 [facility] Comment on above: Order Comment: No: D o not add to previous draw Performed By: #### 0 0071, 50530 #### [facility] [address] [place] [address], [place] Glucose [Mass/Vol] 156 mg/dL High 70-100 [facility] Comment on above: Order Comment: No: D o not add to previous draw Performed By: #### 0 0071, 55735 #### [facility] [address] [place] [address], [facility] Potassium [Moles/Vol] 3.9 mmol/L Normal 3.5-5.1 [facility] Comment on above: Order Comment: No: D o not add to previous draw Performed By: #### 0 0071, 21207 #### [facility] [address] [place] [address], [place] Sodium [Moles/Vol] 136 mmol/L Normal 136-145 [facility] Comment on above: Order Comment: No: D o not add to previous draw Performed By: #### 0 0071, 15202 #### [facility] [address] [place] [address], [facility] Urea nitrogen [Mass/Vol] 8 mg/dL Normal 7-25 [facility] Comment on above: Order Comment: No: D o not add to previous draw Performed By: #### 0 0071, 06624 #### [facility] [address] [place] [address], [facility] CBC COMPLETE BLOOD COUNTon 0 - Erythrocyte distribution width (RBC) [Ratio] 15.1 % High 11.5-15.0 [facility] Comment on above: Order Comment: No: D o not add to previous draw Performed By: #### 0 0071 #### [facility] [address] [place] [address], [facility] Hematocrit (Bld) [Volume fraction] 44.1 % Normal 39.0-50.0 [facility] Comment on above: Order Comment: No: D o not add to previous draw Performed By: #### 0 0071 #### [facility] [address] [place] [address], [facility] Hemoglobin (Bld) [Mass/Vol] 13.4 g/dL Normal 13.0-17.0 [facility] Comment on above: Order Comment: No: D o not add to previous draw Performed By: #### 0 0071 #### [facility] [address] [place] [address], [facility] MCH (RBC) [Entitic mass] 23.1 pg Low 27.0-33.0 [facility] Comment on above: Order Comment: No: D o not add to previous draw Performed By: #### 0 0071 #### [facility] [address] [place] [address], [facility] MCHC (RBC) [Mass/Vol] 30.4 g/dL Low 32.0-35.0 [facility] Comment on above: Order Comment: No: D o not add to previous draw Performed By: #### 0 0071 #### [facility] [address] [facility] [place] [address], [facility] MCV (RBC) [Entitic vol] 76.0 fL Low 82.0-98.0 [facility] Comment on above: Order Comment: No: D o not add to previous draw Performed By: #### 0 0071 #### [facility] [address] [place] [address], [facility] Nucleated RBC/100 WBC (Bld) [Ratio] 0 % Normal 0-0 [facility] Comment on above: Order Comment: No: D o not add to previous draw Performed By: #### 0 0071 #### [facility] [address] [facility] [place] [address], [facility] PLAT CNT 190 10*3/uL Normal 150-400 [facility] Comment on above: Order Comment: No: D o not add to previous draw Performed By: #### 0 0071 #### [facility] [address] [place] [address], [facility] RBC (Bld) [#/Vol] 5.80 10*6/uL High 4.20-5.70 [facility] Comment on above: Order Comment: No: D o not add to previous draw Performed By: #### 0 0071 #### [facility] [address] [place] [address], [facility] WBC (Bld) [#/Vol] 7.98 10*3/uL Normal 4.00-10.60 [facility] Comment on above: Order Comment: No: D o not add to previous draw Performed By: #### 0 0071 #### [facility] [address] [place] [address], [facility] MAGNESIUM BLOODon 07-23-2020 Magnesium [Mass/Vol] 1.9 mg/dL Normal 1.9-2.7 [facility] Comment on above: Order Comment: No: D o not add to previous draw Performed By: #### 0 0071, 56963 #### [facility] [address] [facility] [place] [address], [facility] POC GLUCOSE LABon 07-23-2020 Glucose [Mass/Vol] 140 mg/dL High 70-100 [facility] Comment on above: Performed By: #### 0 0071 #### [facility] [address] [facility] [place] [place] [address], [place] Glucose [Mass/Vol] 155 mg/dL High 70-100 [facility] Comment on above: Performed By: #### 0 0071, 07324 #### [facility] [address] [facility] [place] [place] [address], [place] Glucose [Mass/Vol] 164 mg/dL High 70-100 [facility] Comment on above: Performed By: #### 0 0071 #### [facility] [address] [place] [address], [facility] BASIC METABOLIC PANELon Calcium [Mass/Vol] 8.3 mg/dL Low 8.6-10.3 [facility] Comment on above: Order Comment: No: D o not add to previous draw Performed By: #### 0 0071, 07567 #### [facility] [address] [place] [address], [facility] Chloride [Moles/Vol] 103 mmol/L Normal 98-107 [facility] Comment on above: Order Comment: No: D o not add to previous draw Performed By: #### 0 0071, 13583 #### [facility] [address] [place] [address], [place] CO2 [Moles/Vol] 26 mmol/L Normal 21-31 [facility] Comment on above: Order Comment: No: D o not add to previous draw Performed By: #### 0 0071, 13807 #### [facility] [address] [place] [address], [place] Creatinine [Mass/Vol] 0.90 mg/dL Normal 0.70-1.30 [facility] Comment on above: Order Comment: No: D o not add to previous draw Performed By: #### 0 0071, 01078 #### [facility] [address] [place] [address], [place] GFR/1.73 sq M.predicted among blacks MDRD (S/P/Bld) [Vol rate/Area] mL/min/{1.73_m2} Normal >60 [facility] Comment on above: Order Comment: No: D o not add to previous draw Performed By: #### 0 0071, 35889 #### [facility] [address] [place] [address], [place] GFR/1.73 sq M.predicted among non-blacks MDRD (S/P/Bld) [Vol rate/Area] mL/min/{1.73_m2} Normal >60 [facility] Comment on above: Order Comment: No: D o not add to previous draw Performed By: #### 0 0071, 92457 #### [facility] [address] [place] [address], [place] Glucose [Mass/Vol] 166 mg/dL High 70-100 [facility] Comment on above: Order Comment: No: D o not add to previous draw Performed By: #### 0 0071, 49017 #### [facility] [address] [place] [address], [place] Potassium [Moles/Vol] 4.1 mmol/L Normal 3.5-5.1 [facility] Comment on above: Order Comment: No: D o not add to previous draw Performed By: #### 0 0071, 55257 #### [facility] [address] [place] [address], [place] Sodium [Moles/Vol] 136 mmol/L Normal 136-145 [facility] Comment on above: Order Comment: No: D o not add to previous draw Performed By: #### 0 0071, 83076 #### [facility] [address] [place] [address], [place] Urea nitrogen [Mass/Vol] 12 mg/dL Normal 7-25 [facility] Comment on above: Order Comment: No: D o not add to previous draw Performed By: #### 0 0071, 06209 #### [facility] [address] [place] [address], [place] CBC COMPLETE BLOOD COUNTon 0 - Erythrocyte distribution width (RBC) [Ratio] 14.9 % Normal 11.5-15.0 [facility] Comment on above: Order Comment: No: D o not add to previous draw Performed By: #### 0 0071, 13435 #### [facility] [address] [place] [address], [place] Hematocrit (Bld) [Volume fraction] 42.8 % Normal 39.0-50.0 [facility] Comment on above: Order Comment: No: D o not add to previous draw Performed By: #### 0 0071, 37257 #### [facility] [address] [place] [address], [place] Hemoglobin (Bld) [Mass/Vol] 13.3 g/dL Normal 13.0-17.0 [facility] Comment on above: Order Comment: No: D o not add to previous draw Performed By: #### 0 0071, 35566 #### [facility] [address] [facility] [place] [address], [facility] MCH (RBC) [Entitic mass] 23.4 pg Low 27.0-33.0 [facility] Comment on above: Order Comment: No: D o not add to previous draw Performed By: #### 0 0071, 14681 #### [facility] [address] [place] [address], [facility] MCHC (RBC) [Mass/Vol] 31.1 g/dL Low 32.0-35.0 [facility] Comment on above: Order Comment: No: D o not add to previous draw Performed By: #### 0 0071, 66633 #### [facility] [address] [facility] [place] [place] [address], [facility] MCV (RBC) [Entitic vol] 75.2 fL Low 82.0-98.0 [facility] Comment on above: Order Comment: No: D o not add to previous draw Performed By: #### 0 0071, 38183 #### [facility] [address] [facility]. [address] Nucleated RBC/100 WBC (Bld) [Ratio] 0 % Normal 0-0 [facility] Comment on above: Order Comment: No: D o not add to previous draw Performed By: #### 0 0071, 54170 #### [facility] [address] [facility] [place] [address], [facility] PLAT CNT 211 10*3/uL Normal 150-400 The [facility] Comment on above: Order Comment: No: D o not add to previous draw Performed By: #### 0 0071, [id number] #### [facility] [address] [facility] [place] [address], [facility] RBC (Bld) [#/Vol] 5.69 10*6/uL Normal 4.20-5.70 The [facility] Comment on above: Order Comment: No: D o not add to previous draw Performed By: #### 0 0071, [id number] #### [facility] [address] [facility]. [address] WBC (Bld) [#/Vol] 8.55 10*3/uL Normal 4.00-10.60 The [facility] Comment on above: Order Comment: No: D o not add to previous draw Performed By: #### 0 0071, [id number] #### [facility] [address] MAGNESIUM BLOODon 07-22-2020 Magnesium [Mass/Vol] 2.0 mg/dL Normal 1.9-2.7 The [facility] Comment on above: Order Comment: No: D o not add to previous draw Performed By: #### 0 0071, [id number] #### [facility] [address] [facility]. [address] Operative Reporton Operative Report MR#: [id number] I [facility] Pt. Name: Noé Jeffery Room #: 4CD [id number] Discharge Date: Birthdate: 1965 OPERATIVE REPORT DATE [...] Izaguirre M.D. Date Trans: 07/21/2020 10:04 P/mmo [id number] cc: Jae Lopez M.D. [address] [id number] Normal The [facility] POC GLUCOSE LABon 07-22-2020 Glucose [Mass/Vol] 142 mg/dL High 70-100 [facility] Comment on above: Performed By: #### 0 0071, [id number] #### [facility] [address] [place] [address], [place] Glucose [Mass/Vol] 113 mg/dL High 70-100 [facility] Comment on above: Performed By: #### 0 0071, [id number] #### [facility] [address] [place] [address], [place] Glucose [Mass/Vol] 153 mg/dL High 70-100 The [facility] Comment on above: Performed By: #### 0 0071, [id number] #### [facility] [address] [place] [address], [place] Glucose [Mass/Vol] 127 mg/dL High 70-100 The [facility] Comment on above: Performed By: #### 0 0071, [id number] #### [facility] [address] [place] [address], [place] Glucose [Mass/Vol] 176 mg/dL High 70-100 The [facility] Comment on above: Performed By: #### 0 0071 #### [facility] [address] [place] [address], [place] *MRSA/MSSA DNA NASALon 07-21 *MRSA/MSSA DNA NASAL Clinical Report: (D ) Specimen: NASAL SWAB Collected: 07/21/2020 00:00 Status: Final Last Updated: 07/21/2020 15:28 (1) No collection time noted on specimen or requisition. The collection time recorded is the time of receipt in the lab. MSSA DNA (Final) Methicillin Susceptible Staphylococcus aureus DNA Detected MRSA DNA (Final) Negative Normal The [facility] Comment on above: Order Comment: No: D o not add to previous draw Performed By: #### 0 0071, [id number] #### [facility] [address] [facility]. [address] POC GLUCOSE LABon 07-21-2020 Glucose [Mass/Vol] 168 mg/dL High 70-100 The [facility] Comment on above: Performed By: #### 0 0071 #### [facility] [address] [facility] [place] [address], [facility] Glucose [Mass/Vol] 211 mg/dL High 70-100 [facility] Comment on above: Performed By: #### 0 0071, [id number] #### [facility] [address] [facility] [place] [address], [facility] Glucose [Mass/Vol] 117 mg/dL High 70-100 The [facility] Comment on above: Performed By: #### 0 0071, [id number] #### [facility] [address] [facility]. [address] *SARS-CoV-2 COVID-19on 07-18 SARS-CoV-2 (COVID-19) RNA LILLIANA+probe Ql (Unsp spec) Not detected Normal Not Detected The [facility] Comment on above: Order Comment: No: D o not add to previous draw Performed By: #### 0 0071, [id number] #### [facility] [address] [facility] [place] [address], [facility] BASIC METABOLIC PANELon 06-21 Calcium [Mass/Vol] 9.2 mg/dL Normal 8.6-10.3 The [facility] Comment on above: Performed By: #### 0 0071 #### [facility] [address] [facility] [place] [address], [facility] Chloride [Moles/Vol] 100 mmol/L Normal 98-107 The [facility] Comment on above: Performed By: #### 0 0071 #### [facility] [address] [facility] [place] [place] [address], [facility] CO2 [Moles/Vol] 30 mmol/L Normal 21-31 The [facility] Comment on above: Performed By: #### 0 0071 #### [facility] [address] [facility] [place] [address], [facility] Creatinine [Mass/Vol] 1.01 mg/dL Normal 0.70-1.30 The [facility] Comment on above: Performed By: #### 0 0071 #### [facility] [address] [facility] [place] [address], [place] GFR/1.73 sq M.predicted among blacks MDRD (S/P/Bld) [Vol rate/Area] mL/min/{1.73_m2} Normal >60 The [facility] Comment on above: Performed By: #### 0 0071 #### [facility] [address] [facility] [place] [place] [address], [place] GFR/1.73 sq M.predicted among non-blacks MDRD (S/P/Bld) [Vol rate/Area] mL/min/{1.73_m2} Normal >60 The [facility] Comment on above: Performed By: #### 0 0071 #### [facility] [address] [facility] [place] [place] [address], [place] Glucose [Mass/Vol] 121 mg/dL High 70-100 The [facility] Comment on above: Performed By: #### 0 0071 #### [facility] [address] [place] [address], [facility] Potassium [Moles/Vol] 4.4 mmol/L Normal 3.5-5.1 The [facility] Comment on above: Performed By: #### 0 0071 #### [facility] [address] [facility] [place] [address], [facility] Sodium [Moles/Vol] 135 mmol/L Low 136-145 The [facility] Comment on above: Performed By: #### 0 0071 #### [facility] [address] [place] [address], [facility] Urea nitrogen [Mass/Vol] 14 mg/dL Normal 7-25 The [facility] Comment on above: Performed By: #### 0 0071 #### [facility] [address] CBC W/DIFFon 07-18-2020 ABS IMM GRANS 0.0 10*3/uL Normal 0.0-0.2 The [facility] Comment on above: Performed By: #### 0 0071 #### [facility] [address] [place] [address], [facility] ABS NEUTROPHILS 2.5 10*3/uL Normal 1.6-7.6 The [facility] Comment on above: Performed By: #### 0 0071 #### [facility] [address] [place] [address], [facility] Basophils (Bld) [#/Vol] 0.0 10*3/uL Normal 0.0-0.2 The [facility] Comment on above: Performed By: #### 0 0071 #### [facility] [address] [place] [address], [facility] Basophils/100 WBC (Bld) 0.9 % Normal 0.0-1.0 The [facility] Comment on above: Performed By: #### 0 0071 #### [facility] [address] Eosinophils (Bld) [#/Vol] 0.1 10*3/uL Normal 0.0-0.5 The [facility] Comment on above: Performed By: #### 0 0071 #### [facility] [address] [place] [address], [facility] Eosinophils/100 WBC (Bld) 1.2 % Normal 0.0-6.0 The [facility] Comment on above: Performed By: #### 0 0071 #### [facility] [address] Erythrocyte distribution width (RBC) [Ratio] 14.8 % Normal 11.5-15.0 The [facility] Comment on above: Performed By: #### 0 0071 #### [facility] [address] Hematocrit (Bld) [Volume fraction] 47.6 % Normal 39.0-50.0 The [facility] Comment on above: Performed By: #### 0 0071 #### [facility] [address] Hemoglobin (Bld) [Mass/Vol] 14.5 g/dL Normal 13.0-17.0 The [facility] Comment on above: Performed By: #### 0 0071 #### [facility] [address] [place] [address], [facility] IMMATURE GRANS 0.2 % Normal 0.0-1.0 [facility] Comment on above: Performed By: #### 0 0071 #### [facility] [address] [place] [address], [facility] Lymphocytes (Bld) [#/Vol] 1.4 10*3/uL Normal 1.2-4.0 The [facility] Comment on above: Performed By: #### 0 0071 #### [facility] [address] [place] [address], [facility] Lymphocytes/100 WBC (Bld) 32.9 % Normal 20.0-45.0 The [facility] Comment on above: Performed By: #### 0 0071 #### [facility] [address] [place] [address], [facility] MCH (RBC) [Entitic mass] 23.2 pg Low 27.0-33.0 The [facility] Comment on above: Performed By: #### 0 0071 #### [facility] [address] [facility] [place] [place] [address], [facility] MCHC (RBC) [Mass/Vol] 30.5 g/dL Low 32.0-35.0 The [facility] Comment on above: Performed By: #### 0 0071 #### [facility] [address] [place] [address], [facility] MCV (RBC) [Entitic vol] 76.0 fL Low 82.0-98.0 The [facility] Comment on above: Performed By: #### 0 0071 #### [facility] [address] [facility] [place] [address], [facility] Monocytes (Bld) [#/Vol] 0.3 10*3/uL Normal 0.1-1.0 The [facility] Comment on above: Performed By: #### 0 0071 #### [facility] [address] [facility] [place] [address], [facility] MONOS 7.5 % Normal 5.0-12.0 The [facility] Comment on above: Performed By: #### 0 0071 #### [facility] [address] [facility] [place] [address], [facility] Neutrophils/100 WBC (Bld) 57.3 % Normal 40.0-72.0 The [facility] Comment on above: Performed By: #### 0 0071 #### [facility] [address] [place] [address], [facility] Nucleated RBC/100 WBC (Bld) [Ratio] 0 % Normal 0-0 The [facility] Comment on above: Performed By: #### 0 0071 #### [facility] [address] [place] [address], [facility] PLAT CNT 222 10*3/uL Normal 150-400 The [facility] Comment on above: Performed By: #### 0 0071 #### [facility] [address] RBC (Bld) [#/Vol] 6.26 10*6/uL High 4.20-5.70 The [facility] Comment on above: Performed By: #### 0 0071 #### [facility] [address] WBC (Bld) [#/Vol] 4.28 10*3/uL Normal 4.00-10.60 The [facility] Comment on above: Performed By: #### 0 0071 #### [facility] [address] PROTHROMBIN TIMEon 1 INR Coag (PPP) [Relative time] 0.95 {INR} Normal 0.91-1.16 [facility] Comment on above: Result Comment: [...] CHEST 1995;108:[id number]. Performed By: #### 0 0071, [id number] #### [facility] [address] [place] [address], [facility] PT Coag (PPP) [Time] 12.7 s Normal 12.3-14.8 The [facility] Comment on above: Result Comment: ALL RESULTS MUST BE INTERPRETED WITH RESPECT TO BLOOD DRAWING ARTIFACT OR DILUTION ERROR OF ANTICOAGULANT AT THE TIME OF SAMPLING. Performed By: #### 0 0071, [id number] #### [facility] [address] Vital Signs Date Time Vital Sign Value Performing Clinician Facility 07-22-2024 08:01-0500 Diastolic blood pressure 70 mm[Hg] Suzanne Shipley MD Work Phone: [facility] 07-22-2024 08:01-0500 Heart rate 92 /min Suzanne Shipley MD Work Phone: [facility] 07-22-2024 08:01-0500 SaO2% (BldA) [Mass fraction] 95 % Suzanne Shipley MD Work Phone: [facility] 07-22-2024 08:01-0500 Systolic blood pressure 105 mm[Hg] Suzanne Shipley MD Work Phone: [facility] 07-22-2024 05:00-0500 Body temperature 97.7 [degF] Suzanne Shipley MD Work Phone: [facility] 07-22-2024 05:00-0500 Respiratory rate 15 /min Suzanne Shipley MD Work Phone: [facility] 07-12-2024 07:00-0500 Body mass index (BMI) [Ratio] 30.78 kg/m2 Suzanne Shipley MD Work Phone: [facility] 07-12-2024 07:00-0500 Body weight 83.9 kg Suzanne Shipley MD Work Phone: [facility] 06-21-2024 10:23-0500 Heart rate 69 /min Danni Lue [facility] 06-21-2024 10:23-0500 SaO2% (BldA) [Mass fraction] 98 % Danni Lue [facility] 06-21-2024 10:23-0500 Diastolic blood pressure 88 mm[Hg] Danni Lue [facility] 06-21-2024 10:23-0500 Mean blood pressure 104 mm[Hg] Danni Lue [facility] 06-21-2024 10:23-0500 Systolic blood pressure 135 mm[Hg] Danni Lue [facility] 03-15-2024 14:28-0400 Body height 165.1 cm MD Jae Lopez Work Phone: [facility] 03-15-2024 14:28-0400 Body weight 73.93 kg MD Jae Lopez Work Phone: [facility] 01-11-2024 09:54-0400 Blood Pressure Location Danni Lue [facility] 01-11-2024 09:54-0400 Body temperature 98.6 [degF] Danni Lue [facility] 01-11-2024 09:54-0400 Diastolic blood pressure 72 mm[Hg] Danni Lue [facility] 01-11-2024 09:54-0400 Heart rate 57 /min Danni Lue [facility] 01-11-2024 09:54-0400 Respiratory rate 16 /min Danni Montgomerye [facility] 01-11-2024 09:54-0400 Systolic blood pressure 119 mm[Hg] Danni Lue [facility] 10-12-2022 12:01-0400 Diastolic blood pressure 74 mm[Hg] Miguelito Chicas APRN.STOREHOUSE CLERK Work Phone: [facility] 10-12-2022 12:01-0400 Heart rate 58 /min Miguelito Chicas APRN.STOREHOUSE CLERK Work Phone: [facility] 10-12-2022 12:01-0400 Systolic blood pressure 117 mm[Hg] Miguelito Chicas APRN.STOREHOUSE CLERK Work Phone: [facility] 04-30-2022 10:56-0500 Body weight 86.23 kg Gera Brianaibalas DO Work Phone: [facility] 04-30-2022 10:56-0500 Diastolic blood pressure 91 mm[Hg] Gera Brianaibalas DO Work Phone: [facility] 04-30-2022 10:56-0500 Heart rate 82 /min Gera Warrenibalas DO Work Phone: [facility] 04-30-2022 10:56-0500 SaO2% (BldA) [Mass fraction] 97 % Gera Brianaibalas DO Work Phone: [facility] 04-30-2022 10:56-0500 Systolic blood pressure 139 mm[Hg] Gera Bravolas DO Work Phone: [facility] 04-26-2022 03:51-0500 Body height 165.1 cm Roosevelt Merlos MD Work Phone: [facility] 04-26-2022 03:51-0500 Body weight 83.6 kg Roosevelt Merlos MD Work Phone: [facility] 04-22-2022 16:41-0400 Diastolic blood pressure 100 mm[Hg] Brenda Francis LEI MAKER.STOREHOUSE CLERK Work Phone: [facility] 04-22-2022 16:41-0400 Systolic blood pressure 156 mm[Hg] Brenda Francis LEI MAKER.STOREHOUSE CLERK Work Phone: [facility] 04-22-2022 16:17-0400 Body temperature 98.29 [degF] Brenda Francis LEI MAKER.STOREHOUSE CLERK Work Phone: [facility] 04-22-2022 16:17-0400 Body weight 86.27 kg Brenda Francis LEI MAKER.STOREHOUSE CLERK Work Phone: [facility] 04-22-2022 16:17-0400 Heart rate 98 /min Brenda Francis LEI MAKER.STOREHOUSE CLERK Work Phone: [facility] 04-22-2022 16:17-0400 SaO2% (BldA) [Mass fraction] 100 % Brenda Francis LEI MAKER.STOREHOUSE CLERK Work Phone: [facility] Encounters Encounter Date Encounter Type Care Provider Facility Start: 07-30-2024 End: 07-30-2024 ambulatory FIDELINA FISHER Facility:[facility] Start: 07-22-2024 End: 07-22-2024 Evaluation and management of inpatient CHANDLER Murillo LOUIE [facility] Start: 07-20-2024 End: 07-20-2024 Telephone encounter Briana Mcdermott MD Work Phone: Neurology Start: 07-18-2024 End: 07-20-2024 Telephone encounter Narciso Guerra MD Work Phone: Neurology Comment on above: Patient Question Start: 07-17-2024 End: 07-18-2024 Telephone encounter Narciso Guerra MD Work Phone: Neurology Comment on above: Patient Question Start: 07-12-2024 End: 07-12-2024 Telephone encounter Kelly [facility] Comment on above: patient concern Start: 07-11-2024 ambulatory Danni Graham Facility:[facility] Start: 07-10-[address] [facility] Start: 07-10-2024 End: 07-10-2024 Evaluation and management of inpatient CECILE HENRY [facility] Start: 07-08-2024 End: 07-08-2024 Evaluation and management of inpatient [facility] Start: 07-08-2024 End: 07-22-2024 Evaluation and management of inpatient [facility] Start: 07-06-2024 End: 07-06-2024 Evaluation and management of inpatient KHALIF VALERIO [facility] Start: 07-06-2024 End: 07-22-2024 Evaluation and management of inpatient Nichol Heath MD Work Phone: [facility] - GEN 8 Acute Comment on above: Dementia with behavi oral disturbance ([facility]) (Primary Dx); Status post colostomy, follow-up exam ([facility] [place] [place] Start: 07-03-[address] [facility] Start: 07-03-2024 End: 07-05-2024 Emergency department patient visit [facility] Start: 06-25-2024 ambulatory Elliott Romeo acility:[facility] Start: 06-24-2024 End: 06-24-2024 Emergency department patient visit MAITE MORRIS [facility] Start: 06-21-2024 End: 06-21-2024 ambulatory Danni Graham [facility] Start: 06-21-2024 End: 06-21-2024 Patient encounter procedure Danni Graham [facility] Start: 05-02-2024 End: 06-27-2024 Pre-admission assessment Danni Graham [facility] Start: 03-15-2024 End: 03-15-2024 Patient encounter procedure MD Jae Lopez Work Phone: [facility] [place] Work Phone: Start: 03-15-2024 End: 03-15-2024 ambulatory MD Jae Lopez Work Phone: [facility] Work Phone: Start: 03-09-2024 End: 03-09-2024 Patient Msg Lisandra Gomez LEI MAKER.STOREHOUSE CLERK Work Phone: Neurology Comment on above: refill Start: 03-09-2024 End: 03-09-2024 Refill Lorri Plascencia MD Work Phone: Neurology Comment on above: Refill Request Start: 01-25-2024 End: 01-25-2024 ambulatory Danni Graham Facility:[facility] Start: 01-25-2024 End: 01-25-2024 Off-Site Danni M. Valentinae [facility] Start: 01-11-2024 End: 01-11-2024 ambulatory Danni M. Lue Facility:[facility] Start: 01-11-2024 End: 01-11-2024 Patient encounter procedure [facility] Start: 12-21-2023 ambulatory Danni Lue Facility:[facility] Start: 12-06-2023 Refill Lorri orellana MD Work Phone: Neurology Comment on above: Refill Request donepezil refill Start: 03-07-2023 Patient entered into trial Tabby Naqvi Research Coordinator [facility] Start: 03-07-2023 Telephone encounter Tabby locke Research Coordinator Neurology Comment on above: Research ([facility] (IRB [id number])) Start: 02-08-2023 E-mail encounter fro m caregiver Sonal Weinstein APRN.STOREHOUSE CLERK Work Phone: [facility] Start: 02-08-2023 Follow-up encounter Sonal Beltran APRN.STOREHOUSE CLERK Work Phone: Neurology Comment on above: sleep follow up Start: 02-08-2023 Patient entered into trial Tabby Naqvi Research Coordinator [facility] Start: 02-08-2023 Telephone encounter Tabby locke Research Coordinator Neurology Comment on above: Research ([facility] (IRB [id number]) Interest) Start: 02-04-2023 Telephone encounter Sonal Beltran LEI MAKER.STOREHOUSE CLERK Work Phone: Neurology Comment on above: PAP Therapy Follow U p (12/18/22 - 01/16/[address] FROM DME ) Start: 02-02-2023 Refill Lorri orellana MD Work Phone: Neurology Comment on above: Refill Request Start: 01-13-2023 Telephone encounter Kary Gaxiola RN Work Phone: Neurology Comment on above: Returning Patient's Call Start: 12-03-2022 Telephone encounter Sonal Beltran LEI MAKER.STOREHOUSE CLERK Work Phone: Neurology Comment on above: PAP Rx Faxed (DME: S [facility] ) Start: 12-02-2022 End: 12-02-2022 Telemedicine consultation with patient Sonal Weinstein APRN.STOREHOUSE CLERK Work Phone: [facility] Start: 12-02-2022 End: 12-02-2022 ambulatory Lorri Plascencia MD Work Phone: Neurology Comment on above: Forms from [employer] Obstructive sleep ap carol (Primary Dx); Primary central sleep apnea; Hyperlipidemia, unspecified hyperlipidemia type Start: 12-02-2022 E-mail encounter chris m caregiver Lorri Plascencia MD Work Phone: [facility] Start: 11-17-2022 End: 11-17-2022 ambulatory Lorri Plascencia MD Work Phone: Neurology Comment on above: Alzheimer's disease (HCC) (Primary Dx) Start: 11-17-2022 End: 11-17-2022 Telemedicine consultation with patient Lorri Plascencia MD Work Phone: [facility] Start: 10-21-2022 End: 10-22-[address] JAE LOPEZ . Facility: Start: 10-12-2022 End: 10-12-2022 Patient encounter procedure Miguelito Chicas LEI MAKER.STOREHOUSE CLERK Work Phone: Neurology Comment on above: Memory loss (Primary Dx); Encounter for lumbar puncture Start: 10-12-2022 End: 10-12-2022 Patient encounter status Miguelito Chicas APRN.STOREHOUSE CLERK Work Phone: Neurology Start: 08-12-2022 Chart abstracting Leah Mckeon RN Ne urology Start: 08-11-2022 End: 08-11-2022 ambulatory Lorri Plascencia MD Work Phone: Neurology Comment on above: Memory loss (Primary Dx) Start: 08-11-2022 End: 08-11-2022 Telemedicine consultation with patient Lorri Plascencia MD Work Phone: [facility] Start: 08-10-2022 E-mail encounter fro m caregiver [facility] Start: 08-10-2022 Patient encounter procedure [facility] Neurology Comment on above: cancel appointment Start: 07-21-2022 End: 07-21-2022 ambulatory Lorri Plascencia MD Work Phone: Neurology Comment on above: Memory loss Start: 07-21-2022 End: 07-21-2022 Telemedicine consultation with patient Lorri Plascencia MD Work Phone: [facility] Start: 05-07-2022 ambulatory NARCISO GUERRA Facility:[facility] Start: 05-07-2022 End: 05-07-2022 Subsequent hospital visit by physician Mri [facility] (Istat/3t) Work Phone: [facility] MRI Comment on above: Cognitive [...] MD Work Phone: [facility] Start: 04-27-2022 ambulatory Narciso Guerra MD Work Phone: Neurology Comment on above: lab results Start: 04-27-2022 E-mail encounter chris m caregiver Narciso Guerra MD Work Phone: [facility] Start: 04-25-2022 Chart abstracting Roosevelt Merlos MD Work Phone: Neurology Start: 04-22-2022 End: 04-22-2022 Office outpatient visit 15 minutes Brenda Blanco APRN.STOREHOUSE CLERK Work Phone: [facility] Comment on above: Bilateral impacted c [...] Evaluation and management of inpatient JAE LOPEZ Facility:[facility] Start: 07-21-2020 End: 07-23-2020 ambulatory NAYA IZAGUIRRE Facility:[facility] Procedures Date Procedure Procedure Detail [...] Start: 10-12-2022 TOURTELLOTTE BLOOD Og zaina Chicas APRN.STOREHOUSE CLERK Work Phone: Start: 10-12-2022 Cell count misc body fluids w/differential count Miguelito Chicas APRN.STOREHOUSE CLERK Work Phone: Start: 10-12-2022 CSF MANUAL DIFF Miguelito Chicas APRN.STOREHOUSE CLERK Work Phone: Start: 10-12-2022 Glucose body fluid o ther than blood Miguelito Chicas APRN.STOREHOUSE CLERK Work Phone: Start: 05-07-2022 MRI 3D POST [...] H/O: colostomy Status post colostomy, follow-up exam ([facility] [place] Nihcol Heath MD Work Phone: Repair of artery Danni Graham Plan of Treatment Date Care Activity Detail Author Start: 11-23-2029 DTaP,Tdap and Td Vaccines (2 - Td or Tdap) DTaP,Tdap and Td Vaccines (2 - Td or Tdap) [facility] Start: 11-23-2029 Urine microalbumin profile DTaP,Tdap,Td Vaccine (2 - Td or Tdap) [facility] Start: 07-17-2027 Diabetes Screening Diabetes Screenin [facility] Start: 07-11-2025 Tobacco Screening Tobacco Screening [facility] Start: 07-10-2025 Adult BMI Screening Adult BMI Screen ing [facility] Start: 04-22-2025 DIABETES SCREEN DIABETES SCREEN [facility] Start: 04-22-2025 Diabetes Screening Diabetes Screenin g [facility] Start: 01-17-2025 End: 07-20-2025 MR Brain WO and W contrast IV MR brain with and without contrast Imaging Routine Dementia with behavioral disturbance ([facility] [place]) Expected: 01/17/2025 (Approximate), Expires: 07/20/2025 [facility] Work Phone: Comment on above: Expected: 01/17/2025 (Approximate), Expires: 07/20/2025 Start: 12-18-2024 End: 12-18-2024 Patient encounter procedure 12/18/2024 2:10 PM EDT Office Visit [facility] [address] [place] [phone] Flip Villar MD [address] [place] [phone] [facility] Start: 07-30-2024 End: 07-30-2024 Patient encounter procedure 07/30/2024 12:40 PM EST Office Visit Re[facility] [address] [place] [address] Fidelina Fisher, LEI MAKER.STOREHOUSE CLERK [address] [place] [address] [facility] Comment on above: TBI (Traumatic Brain Injury) Start: 02-19-2024 Covid-19 Vaccine ( season) Covid-19 Vaccine ( season) [facility] Start: 02-19-2024 COVID-19 Vaccine ( season) COVID-19 Vaccine ( season) [facility] Start: 02-19-2024 Influenza vaccination C [facility] Start: 06-20-2023 Behavioral Health Screening Behavioral Health Screening [facility] Start: 02-18-2023 Covid-19 Vaccine ( season) Covid-19 Vaccine ( season) [facility] Start: 02-18-2023 Influenza vaccination C [facility] Start: 10-12-2022 End: 12-12-2022 ADMARK PHOSPHO-TAU TOTAL-TAU/AB42 CSF [facility] Work Phone: Comment on above: Expected: 10/12/2022 , Expires: 12/12/2022 Start: 10-12-2022 End: 12-12-2022 Reagin Ab [Titer] in Cerebral spinal fluid by VDRL [facility] Work Phone: Comment on above: Expected: 10/12/2022 , Expires: 12/12/2022 Start: 08-11-2022 End: 10-11-2022 Cell count panel - Cerebral spinal fluid CSF CELL COUNT Lab Routine Memory loss Expected: 08/11/2022, Expires: 10/11/2022 [facility] Work Phone: Comment on above: Expected: 08/11/2022 , Expires: 10/11/2022 Start: 08-11-2022 End: 10-11-2022 Glucose [Mass/volume] in Cerebral spinal fluid GLUCOSE CSF Lab Routine Memory loss Expected: 08/11/2022, Expires: 10/11/2022 [facility] Work Phone: Comment on above: Expected: 08/11/2022 , Expires: 10/11/2022 Start: 08-11-2022 End: 10-11-2022 MISC SEND OUT TST 1 MISC SEND OUT TST 1 Lab Routine Memory loss Expected: 08/11/2022, Expires: 10/11/2022 [facility] Work Phone: Comment on above: Expected: 08/11/2022 , Expires: 10/11/2022 Start: 08-11-2022 End: 10-11-2022 Protein [Mass/volume] in Cerebral spinal fluid PROTEIN CSF Lab Routine Memory loss Expected: 08/11/2022, Expires: 10/11/2022 [facility] Work Phone: Comment on above: Expected: 08/11/2022 , Expires: 10/11/2022 Start: 08-11-2022 End: 10-11-2022 Reagin Ab [Titer] in Cerebral spinal fluid by VDRL VDRL CSF Lab Routine Memory loss Expected: 08/11/2022, Expires: 10/11/2022 [facility] Work Phone: Comment on above: Expected: 08/11/2022 , Expires: 10/11/2022 Start: 08-11-2022 End: 10-11-2022 TOURTELLOTTE BLOOD TOURTELLOTTE BLOOD Lab Routine Memory loss Expected: 08/11/2022, Expires: 10/11/2022 [facility] Work Phone: Comment on above: Expected: 08/11/2022 , Expires: 10/11/2022 Start: 06-20-2022 [facility] Start: 02-18-2022 Influenza vaccination INFLUENZA (#1) [facility] Start: 06-20-2021 DEPRESSION ASSESSMENT DEPRESSION ASS ESSMENT [facility] Start: 05-29-2021 COVID-19 VACCINE (3 - Booster for Pfizer series) COVID-19 VACCINE (3 - Booster for Pfizer series) [facility] Start: 05-29-2021 COVID-19 VACCINE (3 - Pfizer series) COVID-19 VACCINE (3 - Pfizer series) [facility] Start: 2020 PROSTATE CANCER SCREENING DISCUSSION PROSTATE CANCER SCREENING DISCUSSION [facility] Start: 2020 Prostate specific antigen measurement Prostate Cancer Screening Discussion [facility] Start: 2015 Administration of varicella zoster vaccine Zoster (Shingles) Vaccine (1 of 2) [facility] Start: 2015 Pneumococcal Vaccine : 50+ (1 of 1 - PCV) Pneumococcal Vaccine: 50+ (1 of 1 - PCV) [facility] Start: 2015 SHINGRIX VACCINE (1 of 2) SHINGRIX VACCINE (1 of 2) [facility] Start: 2010 COLOGUARD (FIT-DNA) COLOGUARD (FIT-D NA) [facility] Start: 2010 Colonoscopy COLONOSCOPY [facility] Start: 2010 COLORECTAL CANCER SCREENING COLORECTAL CANCER SCREENING [facility] Start: [address] COLONOGRAPHY [facility] Start: 2010 DIABETES SCREEN DIABETES SCREEN [facility] Start: 2010 FECAL OCCULT BLOOD FECAL OCCULT BLOO D [facility] Start: 2010 Screening for malign ant neoplasm of colon [facility] Start: 2010 [facility] Start: 2000 Lipid 1996 panel - S flakita or Plasma Lipid Screening [facility] Start: 2000 Lipid panel Lipid Screening [facility] Start: 2000 LIPID SCREEN LIPID SCREEN [facility] Start: 1984 Hepatitis B Vaccine (1 of 3 - 19+ 3-dose series) Hepatitis B Vaccine (1 of 3 - 19+ 3-dose series) [facility] Start: 1984 Urine microalbumin profile [facility] Start: 1983 Adult BMI Follow Up Plan Adult BMI Follow Up Plan [facility] Start: 1983 Anxiety Screening Anxiety Screening [facility] Start: 1983 Depression Screening Depression Scre ing [facility] Start: 1983 HEPATITIS C SCREENING HEPATITIS C [facility] Start: 1983 Hepatitis C screening Hepatitis C [facility] Start: 1983 HIV SCREENING HIV SCREENING [facility] Start: 1977 Depression Screening Depression Scre ening [facility] Start: 1965 HEPATITIS B (1 of 3 - 3-dose series) HEPATITIS B (1 of 3 - 3-dose series) [facility] Start: 1965 Hepatitis B Vaccine (1 of 3 - 3-dose series) Hepatitis B Vaccine (1 of 3 - 3-dose series) [facility] End: 07-06-2024 ECG 12 lead ECG 12 lead ECG Routine Once for 1 Occurrences starting 07/06/2024 until 07/06/2024 [facility] Comment on above: Once for 1 Occurrenc es starting 07/06/2024 until 07/06/2024 End: 08-11-2023 LUMBAR PUNCTURE/YESICA LUMBAR PUNCTURE/YESICA NEUROLOGY Routine Memory loss 1 Occurrences starting 08/11/2022 until 08/11/2023 [facility] Work Phone: Comment on above: 1 Occurrences starti ng 08/11/2022 until 08/11/2023 End: 10-13-2023 LUMBAR PUNCTURE/YESICA LUMBAR PUNCTURE/YESICA NEUROLOGY Routine Memory loss 1 Occurrences starting 10/12/2022 until 10/13/2023 [facility] Work Phone: Comment on above: 1 Occurrences starti ng 10/12/2022 until 10/13/2023 Oxygen Therapy - Maintain SpO2: 90%; *ROLLER MACHINE OPERATOR Guidelines for O2: Yes; Document: \[email or web address]\epi c\EPIC_Reference\Orders\ Respiratory Care Guidelines\CPG Oxygen 2022.pdf Oxygen Therapy - Maintain SpO2: 90%; *ROLLER MACHINE OPERATOR Guidelines for O2: Yes; Document: \[email or web address]\ep ic\EPIC_Reference\Order s\Respiratory Care Guidelines\CPG Oxygen 2022.pdf Respiratory Care Routine As Needed until discontinued starting 07/06/2024 [facility] Comment on above: As Needed until disc ontinued starting 07/06/2024 End: 01-01-2024 PAP TITRATION PSG (CPAP, BIPAP, ASV) PAP TITRATION PSG (CPAP, BIPAP, ASV) Procedures Routine Obstructive sleep apnea 1 Occurrences starting 12/02/2022 until 01/01/2024 [facility] Work Phone: Comment on above: 1 Occurrences starti ng 12/02/2022 until 01/01/2024 End: 07-09-2024 Prion Markers, Creutzfeldt-Osei Disease(14-3-3 Protein Tau, Total), CSF [facility] Work Phone: Comment on above: Once for 1 Occurrenc es starting 07/09/2024 until 07/09/2024 End: 07-06-2024 Pulse oximetry, spot On current oxygen flow Pulse oximetry, spot On current oxygen flow Respiratory Care Routine Once for 1 Occurrences starting 07/06/2024 until 07/06/2024 [facility] Work Phone: Comment on above: Once for 1 Occurrenc es starting 07/06/2024 until 07/06/2024 Removal impacted cer umen irrigation/lvg unilat AMBULATORY EAR LAVAGE/IRRIGATION Procedures Routine Bilateral impacted cerumen Ordered: 04/22/2022 [facility] Work Phone: Comment on above: Ordered: 04/22/2022 TOURTELLOTTE CSF TOURTELLOTTE CS F Lab Routine Memory loss Ordered: 08/11/2022 [facility] Work Phone: Comment on above: Ordered: 08/11/2022 [facility] Immunizations Immunization Date Immunization Notes Care Provider Genna amaro 11-24-2019 tetanus toxoid, redu zenia diphtheria toxoid, and acellular pertussis vaccine, adsorbed Kelly Johnson [facility] Payers Date Payer Category Payer Medicare DEVOTED MEDICARE DEVOTED HEALTH [place] PPO [id number] 2024-Present [phone] [address] SHREYA WILDER [address] PPO [id number] 2024 Medicare HMO DEVOTED HEALTH M EDICARE ADVANTAGE [id number] 2024 Medicare [id number] 2024 Self-pay 2024 Unknown [id number] 2024 Unknown [id number] 2021 Unknown [id number] [id number]. [id number] 1965 Unknown [id number] 2.16.840.1.740020.3.579.2.647 1965 Unknown [id number] 2.16.840.1.724323.3.579.2.647 1965 Unknown [id number] 2.16.840.1.593221.3.579.2.593 1965 Unknown [id number] 2.16.840.1.440881.3.579.2.593 1965 Unknown [id number] 2.16.840.1.931842.3.579.2.593 1965 Unknown [id number] 2.16.840.1.950800.3.579.2.128 1965 Unknown [id number] 2.16.840.1.882727.3.579.2.128 1965 Unknown [id number] 2.16.840.1.238831.3.579.2.1285 1965 Unknown [id number] 2.16.840.1.467448.3.579.2.1285 1965 Unknown [id number] 2.16.840.1.570611.3.579.2.128 1965 Unknown [id number] 2.16.840.1.785919.3.579.2.128 1965 Unknown [id number] 2.16.840.1.545903.3.579.2.1285 1965 Unknown [id number] 2.16.840.1.230510.3.579.2.128 1965 Unknown [id number] 2.16.840.1.878707.3.579.2.727 1965 Unknown [id number] 2.16.840.1.932047.3.579.2.727 1965 Unknown [id number] 2.16.840.1.821662.3.579.2.7 1965 Unknown [id number] 2.16.840.1.763386.3.579.2.128 1965 Unknown [id number] 2.16.840.1.488107.3.579.2.128 1965 Unknown [id number] 2.16.840.1.930798.3.579.2.1286 1965 Unknown [id number] 2.16.840.1.694293.3.579.2.1286 1965 Unknown [id number] 2.16.840.1.440138.3.579.2.1286 1965 Unknown [id number] 2.16.840.1.766390.3.579.2.1286 1965 Unknown [id number] 2.16.840.1.589128.3.579.2.1286 1965 Unknown [id number] 2.16.840.1.045468.3.579.2.1286 1959 Unknown [id number] 1959 Unknown [id number] Unknown [id number] 2.16.840.1.876502.3.579.2.531 Unknown [id number] 2.16.840.1.703711.3.579.2.531 Social History Date Type Detail Facility Start: 09-12-2018 End: 04-22-2022 Tobacco smoking status NHIS Never smoked tobacco [facility] Start: 09-12-2018 End: 04-22-2022 Tobacco use and exposure Smokeless tobacco non-user [facility] Start: 04-22-2022 End: 10-12-2022 Alcohol intake Ex-drinker (finding) [facility] Start: 1965 Sex Assigned At Not on file C [facility] Start: 04-12-2022 End: 05-07-2022 Exposure to SARS-CoV-2 (event) Not sure [facility] Start: 07-31-2020 End: 10-12-2022 History of Social function [facility] Start: 07-31-2020 End: 10-12-2022 Tobacco use panel [facility] Adult Depression Screening Assessment 2 [facility] Start: 1965 Sex Assigned At Male [facility] Start: 07-11-2024 End: 07-17-2024 Alcoholic beverage intake Current non-drinker of alcohol (finding) [facility] Start: 01-23-2015 Sex Male (finding) [facility] Medical Equipment Procedure Code Equipment Code [...] Assessment Result Facility 06-21-2024 Functional Status No [facility] 01-11-2024 Functional Status N/A [facility] Mental Status Date Assessment Result Facility [facility] Clinical Notes 07-24-2020 to [...] wheelchair to be driven home by . [facility] 07-22-2024 Plan of care note [...] at the bedside 7. Instruct patient/ patient clearance representative about use of safety devices 8. Include patient/ patient clearance representative in decisions related to safety Outcome: Adequate for Discharge Problem: Knowledge Deficit Goal: Patient/patient clearance representative demonstrates understanding of disease process, treatment [...] Score of =/> 25 or indicated by [facility] Assessment Goal: Patient should be free from fall Description: Interventions: 1. Deaver to environment 2. Hourly rounds addressing the [...] non-skid footwear 11. Teach patient and patient clearance representative to maintain environment for safety and [...] (cane, walker) within reach 19. Request patient clearance representative bring adaptive equipment/mobility aids from home or obtain and provide as needed 20. Consult pharmacy regarding effects of med's affecting mobility, cognition, and alternatives 21. Obtain physician order for PT if risk factors associated with mobility are present 22. Obtain physician order for OT as appropriate 23. Utilize diversional activities 24. Educate patient and patient clearance representative how to maintain a safe environment during visitation times (notify nurse prior to leaving bedside) 25. Consider appropriateness of medical or non-medical affairs director 26. Set up voiding schedule as appropriate (every 2 hours) Outcome: Adequate for Discharge [facility] 07-22-2024 Miscellaneous Notes Problem: [...] at the bedside 7. Instruct patient/ patient clearance representative about use of safety devices 8. Include patient/ patient clearance representative in decisions related to safety Outcome: Adequate for Discharge Problem: Knowledge Deficit Goal: Patient/patient clearance representative demonstrates understanding of disease process, treatment [...] Score of =/> 25 or indicated by [facility] Assessment Goal: Patient should be free from fall Description: Interventions: 1. Deaver to environment 2. Hourly rounds addressing the [...] non-skid footwear 11. Teach patient and patient clearance representative to maintain environment for safety and [...] (cane, walker) within reach 19. Request patient clearance representative bring adaptive equipment/mobility aids from home or obtain and provide as needed 20. Consult pharmacy regarding effects of med's affecting mobility, cognition, and alternatives 21. Obtain physician order for PT if risk factors associated with mobility are present 22. Obtain physician order for OT as appropriate 23. Utilize diversional activities 24. Educate patient and patient clearance representative how to maintain a safe environment during visitation times (notify nurse prior to leaving bedside) 25. Consider appropriateness of medical or non-medical affairs director 26. Set up voiding schedule as appropriate [...] at the bedside 7. Instruct patient/ patient clearance representative about use of safety devices 8. Include patient/ patient clearance representative in decisions related to safety Outcome: Progressing Note: Evaluation of progress towards goal: pt remains free from injury. Family at bedside. Problem: Knowledge Deficit Goal: Patient/patient clearance representative demonstrates understanding of disease process, treatment [...] Score of =/> 25 or indicated by [facility] Assessment Goal: Patient should be free from fall Description: Interventions: 1. Deaver to environment 2. Hourly rounds addressing the [...] non-skid footwear 11. Teach patient and patient clearance representative to maintain environment for safety and [...] (cane, walker) within reach 19. Request patient clearance representative bring adaptive equipment/mobility aids from home or obtain and provide as needed 20. Consult pharmacy regarding effects of med's affecting mobility, cognition, and alternatives 21. Obtain physician order for PT if risk factors associated with mobility are present 22. Obtain physician order for OT as appropriate 23. Utilize diversional activities 24. Educate patient and patient clearance representative how to maintain a safe environment during visitation times (notify nurse prior to leaving bedside) 25. Consider appropriateness of medical or non-medical affairs director 26. Set up voiding schedule as appropriate (every 2 hours) Outcome: Progressing Note: Evaluation of progress towards goal: pt remains free from falls. Fall precautions in place and family at bedside Problem: Moderate - High Risk Fall Score Description: Gallegos Fall Score of =/> [facility] Goal: Patient should be free from fall Description: Interventions: 1. Deaver to environment 2. Hourly rounds addressing the [...] non-skid footwear 11. Teach patient and patient clearance representative to maintain environment for safety and [...] (cane, walker) within reach 19. Request patient clearance representative bring adaptive equipment/mobility aids from home or obtain and provide as needed 20. Consult pharmacy regarding effects of med's affecting mobility, cognition, and alternatives 21. Obtain physician order for PT if risk factors associated with mobility are present 22. Obtain physician order for OT as appropriate 23. Utilize diversional activities 24. Educate patient and patient clearance representative how to maintain a safe environment during visitation times (notify nurse prior to leaving bedside) 25. Consider appropriateness of medical or non-medical affairs director 26. Set up voiding schedule as appropriate (every 2 hours) Outcome: Progressing Note: Evaluation of progress towards goal: pt remains free from falls. Fall precautions in place and family at bedside DISCHARGE PLANNING NOTE Audio Production Engineer spoke with RN KAY Graf and with credit charge authorizer Mylena about current situation regarding appeal decision and DC plan to home with outpatient services. Audio Production Engineer placed a call to the who was in the patient's room due to the questions she had re: the discharge plan. Audio Production Engineer spoke with , aKri on 07/21/24 at 1325. Audio Production Engineer reviewed Eduardo's DC Appeal Determination Notification with the who confirmed that she had received a voicemail from [facility] this morning. Audio Production Engineer explained that Eduardo had agreed with the termination of hospital services after having reviewed the uploaded clinical documents from this hospitalization that account underwriter had sent to them yesterday. expressed verbal understanding to of Eduardo's decision. Audio Production Engineer explained that patient's financial liability would begin at Noon on 07/22/24 and offered our care navigation assistance with obtaining transportation to home. had questions about why referrals were not made to fpc facilities that family had now chosen, [facility] and [facility]). Audio Production Engineer explained to the that the patient did not meet the clinical criteria this time for a fpc/rehab facility level of care and reminded her that a discussion about this took place this past week/yesterday with the treatment team. explained that she never agreed to take her home and her and her family now want SNF placement. Audio Production Engineer continued to explain to the process of [...] prior to bringing him to the hospital. Audio Production Engineer offered supportive listening to the and also offered for her to connect with patient's PCP, Dr. Lopez after she gets her home for resources. Audio Production Engineer also discussed the outpatient TBI clinic appointment that was being discussed yesterday and that information would be included on patient's after visit summary. Audio Production Engineer explained that if was not going to make arrangements to take patient home by maylin on 07/22, that patient's financial responsibility of $2640.00 per day would begin. expressed verbal understanding to account underwriter. Audio Production Engineer emailed financial responsibility form with instruction to credit charge authorizerCm (and cce'd today's RN Lesia Felton for awareness) for bedside delivery today. is aware of pending paper copy delivery of this form. - NELLI GLEZ COMPUTER BOOKKEEPER CARE NAVIGATION 07/21/24 2:11 PM DISCHARGE PLANNING NOTE We have received DC Appeal Determination Notification from Daryl and Daryl has agreed with the termination of services. Beneficiary liability begins 07.22.2024 by Maylin. Beneficiary and/or beneficiary clearance representative were to be notified of determination via phone call. [facility] rec'd at [phone] and letter rec'd [phone] were received by account underwriter via fax. Audio Production Engineer uploaded documents to document list. Documentation updated. Audio Production Engineer received forwarded voice mail 07/21/24 at 1032 from Eduardo Duran's Immediate Advocacy Department , who had left message on Care Navigation Department voice mail at 1617 on 07/20/24, stating he was representing patient's family who had called [facility] asking 1) why denial reason wasn't given re: transfer to another care facility and 2) if the preferred facility by family was able to accept. Reference Case # given from Nica [id number]. Audio Production Engineer attempted to call Nica back on 07/21/24 at 1214 and account underwriter rec'd auto message from [facility] which stated only live [facility] calls with [facility] Center are Tuesday thru Tuesday. Audio Production Engineer left voicemail citing reference case # [id number]. Audio Production Engineer stated reason for return phone call and requested call back from Nica. - NELLI GLEZ COMPUTER BOOKKEEPER CARE NAVIGATION 07/21/24 12:37 PM Problem: Safety [...] at the bedside 7. Instruct patient/ patient clearance representative about use of safety devices 8. Include patient/ patient clearance representative in decisions related to safety Outcome: Progressing Note: Evaluation of progress towards goal: Pain will be adequately controlled to allow for rest and adl's Problem: Knowledge Deficit Goal: Patient/patient clearance representative demonstrates understanding of disease process, treatment [...] Moderate - High Risk Fall Score Description: [place] Fall Score of =/> 25 or indicated by [facility] Assessment Goal: Patient should be free from fall Description: Interventions: 1. Deaver to environment 2. Hourly rounds addressing the [...] non-skid footwear 11. Teach patient and patient clearance representative to maintain environment for safety and [...] (cane, walker) within reach 19. Request patient clearance representative bring adaptive equipment/mobility aids from home or obtain and provide as needed 20. Consult pharmacy regarding effects of med's affecting mobility, cognition, and alternatives 21. Obtain physician order for PT if risk factors associated with mobility are present 22. Obtain physician order for OT as appropriate 23. Utilize diversional activities 24. Educate patient and patient clearance representative how to maintain a safe environment during visitation times (notify nurse prior to leaving bedside) 25. Consider appropriateness of medical or non-medical affairs director 26. Set up voiding schedule as appropriate [...] at the bedside 7. Instruct patient/ patient clearance representative about use of safety devices 8. Include patient/ patient clearance representative in decisions related to safety Outcome: Progressing Note: Evaluation of progress towards goal: pt remains free from injury Problem: Knowledge Deficit Goal: Patient/patient clearance representative demonstrates understanding of disease process, treatment [...] Score of =/> 25 or indicated by [facility] Assessment Goal: Patient should be free from fall Description: Interventions: 1. Deaver to environment 2. Hourly rounds addressing the [...] non-skid footwear 11. Teach patient and patient clearance representative to maintain environment for safety and [...] (cane, walker) within reach 19. Request patient clearance representative bring adaptive equipment/mobility aids from home or obtain and provide as needed 20. Consult pharmacy regarding effects of med's affecting mobility, cognition, and alternatives 21. Obtain physician order for PT if risk factors associated with mobility are present 22. Obtain physician order for OT as appropriate 23. Utilize diversional activities 24. Educate patient and patient clearance representative how to maintain a safe environment during visitation times (notify nurse prior to leaving bedside) 25. Consider appropriateness of medical or non-medical affairs director 26. Set up voiding schedule as appropriate (every 2 hours) Outcome: Progressing Note: Evaluation of progress towards goal: fall precautions in place and pt remains free from falls DISCHARGE PLANNING NOTE Patient's family has appealed his discharge & we have received notification from [facility] that a DC appeal has been called in. The chart, DND form, & IMM have been successfully uploaded by account underwriter to the [facility] and successfully received by [facility]. [facility] will notify the of the patient of the appeal determination. Audio Production Engineer phone called patient's & read the DND notice to her. Paper copy of the DND notice to be delivered to the patient's bedside. Audio Production Engineer informed to anticipate phone call from [facility] re: determination of DC Appeal & encouraged wifeto answer the phone when [facility] calls. expressed verbal understanding of DND and the DC appeal process. - NELLI GLEZ COMPUTER BOOKKEEPER CARE NAVIGATION 07/20/24 5:13 PM Problem: Safety [...] at the bedside 7. Instruct patient/ patient clearance representative about use of safety devices 8. Include patient/ patient clearance representative in decisions related to safety Outcome: Progressing Note: Evaluation of progress towards goal: Patient remains injury free at this time. Problem: Knowledge Deficit Goal: Patient/patient clearance representative demonstrates understanding of disease process, treatment [...] Score of =/> 25 or indicated by [facility] Assessment Goal: Patient should be free from fall Description: Interventions: 1. Deaver to environment 2. Hourly rounds addressing the [...] non-skid footwear 11. Teach patient and patient clearance representative to maintain environment for safety and [...] (cane, walker) within reach 19. Request patient clearance representative bring adaptive equipment/mobility aids from home or obtain and provide as needed 20. Consult pharmacy regarding effects of med's affecting mobility, cognition, and alternatives 21. Obtain physician order for PT if risk factors associated with mobility are present 22. Obtain physician order for OT as appropriate 23. Utilize diversional activities 24. Educate patient and patient clearance representative how to maintain a safe environment during visitation times (notify nurse prior to leaving bedside) 25. Consider appropriateness of medical or non-medical affairs director 26. Set up voiding schedule as appropriate (every 2 hours) Outcome: Progressing Note: Evaluation of progress towards goal: Patient remains free from falls at this time. DISCHARGE PLANNING NOTE 07/30 at 12:40 Hospital follow up with Fidelina Fisher CNP [facility] [address] [place] [address] Confirmed with Taylor at [facility] she did receive the updated notes (neuro, PMR, PT/OT) that were faxed and uploaded to [facility]. She is almost finishing writing it up for physician review and will call us with their determination by 10am. 9:31 am Received call from Taylor at [facility] IPR-she reviewed updated notes with medical affairs director and they remain unable to accept after our 3rd request for review. She said he is doing too well functionally, does not need OT/PT services. She said after discussion with medical affairs director their facility would be of no benefit to the patient. This information was communicated to interdisciplinary team via epic chat DISCHARGE PLANNING NOTE Sent face sheet to [facility] for hospital transfer via secure fax to # [phone] DISCHARGE PLANNING NOTE Discharge plan- awaiting responses from [facility] if they can accept. Tasked [facility] to send neuro note from yesterday to them again. Tasked CN to fax his face sheet to [facility] per physician request since she is calling them about a hospital to hospital transfer per families request. Leadership team aware. - NANCY PARRISH 07/20/24 8:19 AM Discussed patient and d/c planning with leadership team. Everyone in agreement with d/c today since per physician [facility] can not accept as a hospital transfer and [facility] has denied as well. Physician and this account underwriter spoke with patient, and sister that is present re: d/c today and that patient will be going home with outpatient ST and an appointment has been made for a TBI clinic for follow up. Provided IMM to and explained. Leadership aware. - NANCY PARRISH 07/20/24 11:29 AM DISCHARGE PLANNING NOTE Neuro Note sent to [facility] (P# [phone] ; F# [phone]) in [facility] and via [facility]. Problem: Safety Goal: Patient will be injury free during hospitalization Description: INTERVENTIONS: 1. Assess patient's risk for falls and implement fall prevention plan of care per policy 2. Provide and maintain a safe environment 3. Proper use of double Identifiers 4. Medication administration using the 5 rights 5. Hand hygiene 6. Specimens are labeled at the bedside 7. Instruct patient/ patient clearance representative about use of safety devices 8. Include patient/ patient clearance representative in decisions related to safety Outcome: Progressing Note: Evaluation of progress towards goal: Pt remains free from injury and significant other at bedside Problem: Knowledge Deficit Goal: Patient/patient clearance representative demonstrates understanding of disease process, treatment [...] Score of =/> 25 or indicated by [facility] Assessment Goal: Patient should be free from fall Description: Interventions: 1. Deaver to environment 2. Hourly rounds addressing the [...] non-skid footwear 11. Teach patient and patient clearance representative to maintain environment for safety and [...] (cane, walker) within reach 19. Request patient clearance representative bring adaptive equipment/mobility aids from home or obtain and provide as needed 20. Consult pharmacy regarding effects of med's affecting mobility, cognition, and alternatives 21. Obtain physician order for PT if risk factors associated with mobility are present 22. Obtain physician order for OT as appropriate 23. Utilize diversional activities 24. Educate patient and patient clearance representative how to maintain a safe environment during visitation times (notify nurse prior to leaving bedside) 25. Consider appropriateness of medical or non-medical affairs director 26. Set up voiding schedule as appropriate (every 2 hours) Outcome: Progressing Note: Evaluation of progress towards goal: pt remains free from falls and fall precautions are in place DISCHARGE PLANNING NOTE Updates to [facility] (P# [phone] ; F# [phone]) Occupational Therapy Treatment Discharge Recommendations OT Recommendations [...] therapy per MARCI Rothman Equipment: gait belt Telemetry/Biological Scientist: No Oxygen Used: room air Other: fall [...] up w/mother's name; educated sister on playing [employer] songs from pt's younger years, to encourage [...] Date/Time User Outcome 07/19/24 1445 Yoanna Guille-Mahoney, RIG SUPERVISOR/L Progressing 07/17/24 1439 Yoanna Guille-Mahoney, KWADWO/L Progressing [...] Date/Time User Outcome 07/19/24 1445 Yoanna Guille-Mahoney, RIG SUPERVISOR/L Progressing 07/17/24 1439 Yoanna Guille-Mahoney, RIG SUPERVISOR/L Progressing Problem: Dressing LB Dates: Start: 07/13/24 [...] Date/Time User Outcome 07/19/24 1445 Yoanna Han-Mahoney, RIG SUPERVISOR/L Progressing 07/17/24 1439 Yoanna Han-Mahoney, KWADWO/L Progressing Problem: Grooming Dates: Start: 07/13/24 Disciplines: OT Goal: Patient will perform grooming Independently Dates: Start: 07/13/24 Expected End: 08/13/24 Description: Goal Description: Disciplines: OT Outcomes Date/Time User Outcome 07/17/24 1439 Yoanna Han-Mahoney, RIG SUPERVISOR/L Progressing Problem: Standing Balance Dates: Start: 07/13/24 [...] Date/Time User Outcome 07/17/24 1439 Yoanna Han-Mahoney, RIG SUPERVISOR/L Progressing Problem: Transfers Dates: Start: 07/13/24 Disciplines: OT Goal: Patient will perform transfers Independently Dates: Start: 07/13/24 Expected End: 08/13/24 Description: Goal Description: Disciplines: OT Outcomes Date/Time User Outcome 07/19/24 1445 EN Hogan Progressing 07/17/24 1439 EN Hogan Progressing Occupational Therapy Care Plan (Resolved) There are no resolved problems. Principal Problem: Dementia with behavioral disturbance ([facility]) Active Problems: Altered mental status Status post colostomy, follow-up exam ([facility] [place] [place] Cosigned by MAYNOR Dillon/Jerome at 07/19/2024 3:13 [...] 6 Clicks: Basic Mobility Raw Score: 20 [facility] G Code Modifier: CJ Patient Response to Treatment: Slow progress, decreased activity tolerance Assessment Patient Assessment Patient Response to Treatment: Slow progress, decreased activity tolerance Visit RN Communication: Yes Medical Record Reviewed: Yes PT Type of Visit: Treatment Precautions Activity: ok for therapy per MARCI Rothman Equipment: gait belt Telemetry/Biological Scientist: Yes Oxygen Used: room air Other: fall [...] Goal: Patient will perform stairs/curb with Modified [place] Dates: Start: 07/13/24 Expected End: 07/27/24 Description: [...] problems. Principal Problem: Dementia with behavioral disturbance ([facility]) Active Problems: Altered mental status Status post colostomy, follow-up exam ([facility]) Cosigned by Jose Gorman PT [...] at the bedside 7. Instruct patient/ patient clearance representative about use of safety devices 8. Include patient/ patient clearance representative in decisions related to safety Outcome: Progressing Note: Evaluation of progress towards goal: Patient remains injury free at this time. Problem: Knowledge Deficit Goal: Patient/patient clearance representative demonstrates understanding of disease process, treatment [...] Score of =/> 25 or indicated by [facility] Assessment Goal: Patient should be free from fall Description: Interventions: 1. Deaver to environment 2. Hourly rounds addressing the [...] non-skid footwear 11. Teach patient and patient clearance representative to maintain environment for safety and [...] (cane, walker) within reach 19. Request patient clearance representative bring adaptive equipment/mobility aids from home or obtain and provide as needed 20. Consult pharmacy regarding effects of med's affecting mobility, cognition, and alternatives 21. Obtain physician order for PT if risk factors associated with mobility are present 22. Obtain physician order for OT as appropriate 23. Utilize diversional activities 24. Educate patient and patient clearance representative how to maintain a safe environment during visitation times (notify nurse prior to leaving bedside) 25. Consider appropriateness of medical or non-medical affairs director 26. Set up voiding schedule as appropriate (every 2 hours) Outcome: Progressing Note: Evaluation of progress towards goal: Patient remains free from falls. DISCHARGE PLANNING NOTE Updates to [facility] (P# ; F# ) Images from the original note were not included. DISCHARGE PLANNING NOTE Discussed patient today during rounds. Plan-TBI center VS IPR. This account underwriter and floor Mgr spoke with patient's over the phone and his sister in his room re: d/c planning. Updated them that [facility] has denied. Offered to send [facility] to see if they can accept [...] - NANCY PARRISH 07/19/24 10:42 AM This account underwriter and sales floor manager and Dr. Shipley spoke with patient, and sister re: d/c planning. They are aware that [facility] is still reviewing referral. Asked if SNF referrals can be sent and they declined stating they would like the physician to see if she can get him transferred to [facility] as a physician to physician transfer. Updated Leadership. If neither of these hospitals can accept then patient to d/c home with since SNF has been declined. - NANCY PARRISH 07/19/24 12:14 PM This account underwriter and floor mgr spoke with family to let them know [facility] has denied patient and that they recommend SNF for him. Tasked CN to send neuro note from today to [facility] to see if they can accept [...] at the bedside 7. Instruct patient/ patient clearance representative about use of safety devices 8. Include patient/ patient clearance representative in decisions related to safety Outcome: Progressing Note: Evaluation of progress towards goal: Problem: Knowledge Deficit Goal: Patient/patient clearance representative demonstrates understanding of disease process, treatment [...] at the bedside 7. Instruct patient/ patient clearance representative about use of safety devices 8. Include patient/ patient clearance representative in decisions related to safety Outcome: Progressing Note: Evaluation of progress towards goal: Problem: Knowledge Deficit Goal: Patient/patient clearance representative demonstrates understanding of disease process, treatment [...] at the bedside 7. Instruct patient/ patient clearance representative about use of safety devices 8. Include patient/ patient clearance representative in decisions related to safety Outcome: Progressing Note: Evaluation of progress towards goal: patient is injury free at this time. Problem: Knowledge Deficit Goal: Patient/patient clearance representative demonstrates understanding of disease process, treatment [...] Score of =/> 25 or indicated by [facility] Assessment Goal: Patient should be free from fall Description: Interventions: 1. Deaver to environment 2. Hourly rounds addressing the [...] non-skid footwear 11. Teach patient and patient clearance representative to maintain environment for safety and [...] (cane, walker) within reach 19. Request patient clearance representative bring adaptive equipment/mobility aids from home or obtain and provide as needed 20. Consult pharmacy regarding effects of med's affecting mobility, cognition, and alternatives 21. Obtain physician order for PT if risk factors associated with mobility are present 22. Obtain physician order for OT as appropriate 23. Utilize diversional activities 24. Educate patient and patient clearance representative how to maintain a safe environment during visitation times (notify nurse prior to leaving bedside) 25. Consider appropriateness of medical or non-medical affairs director 26. Set up voiding schedule as appropriate (every 2 hours) Outcome: Progressing Note: Evaluation of progress towards goal: Patient is free from falls at this time. DISCHARGE PLANNING NOTE Referral sent to [facility] (P# [phone] ; F# [phone]) Images from the original note were not included. DISCHARGE PLANNING NOTE Discussed patient today during rounds. Patient's requested updates be sent to [facility]. Tasked [facility] to send. Leadership team aware as well as floor nurse. Barriers- acceptance, auth. Services Requested: Services Requested Patient expects to be discharged to:: home vs snf Patient Goals: Goals: Goals <enter goal here> (pt-stated) Evaluation of progress towards goal: TBD-pending PT/OT eval - NANCY PARRISH 07/18/24 10:30 AM Still awaiting response from [facility] if they can accept patient. Leadership [...] at the bedside 7. Instruct patient/ patient clearance representative about use of safety devices 8. Include patient/ patient clearance representative in decisions related to safety Outcome: [...] be free from fall Description: Interventions: 1. Deaver to environment 2. Hourly rounds addressing the [...] non-skid footwear 11. Teach patient and patient clearance representative to maintain environment for safety and [...] (cane, walker) within reach 19. Request patient clearance representative bring adaptive equipment/mobility aids from home or obtain and provide as needed 20. Consult pharmacy regarding effects of med's affecting mobility, cognition, and alternatives 21. Obtain physician order for PT if risk factors associated with mobility are present 22. Obtain physician order for OT as appropriate 23. Utilize diversional activities 24. Educate patient and patient clearance representative how to maintain a safe environment during visitation times (notify nurse prior to leaving bedside) 25. Consider appropriateness of medical or non-medical affairs director 26. Set up voiding schedule as appropriate (every 2 hours) Outcome: Progressing Note: Evaluation of progress towards goal: Patient will remain free from falls. DISCHARGE PLANNING NOTE Referral sent to. [facility] (P# [phone] ; F# [phone], ) Physical Therapy Treatment Discharge Recommendations PT [...] Rothman Equipment: gait belt and chair alarm Telemetry/Biological Scientist: Yes Oxygen Used: room air Other: fall [...] Goal: Patient will perform stairs/curb with Modified [place] Dates: Start: 07/13/24 Expected End: 07/27/24 Description: [...] PT Outcomes Date/Time User Outcome 07/17/24 1443 iVnod Vaca PTA Progressing Goal Note filed on 07/17/24 1443 by Vinod Vaca PTA Evaluation of progress towards goal: Physical Therapy Care Plan (Resolved) There are no resolved problems. Principal Problem: Dementia with behavioral disturbance ([facility]) Active Problems: Altered mental status Status post colostomy, follow-up exam ([facility] [place] [place]) Cosigned by Briana Nuno PT at 07/18/2024 [...] up) Scoring Daily Activity Raw Score: 19 [facility] G Code Modifier: CK Therapy Plan [...] Rothman Equipment: gait belt and chair alarm Telemetry/Biological Scientist: Yes Oxygen Used: room air Other: fall [...] Date/Time User Outcome 07/17/24 1439 Yoanna Han-Mahoney, RIG SUPERVISOR/L Progressing Problem: Grooming Dates: Start: 07/13/24 Disciplines: [...] Date/Time User Outcome 07/17/24 1439 Yoanna Han-Mahoney, RIG SUPERVISOR/L Progressing Problem: Toileting Dates: Start: 07/13/24 Disciplines: OT Goal: Patient will perform toileting Independently Dates: Start: 07/13/24 Expected End: 08/13/24 Description: Goal Description: Disciplines: OT Outcomes Date/Time User Outcome 07/17/24 1439 Yoanna Han-Mahoney, RIG SUPERVISOR/L Progressing Problem: Transfers Dates: Start: 07/13/24 Disciplines: OT Goal: Patient will perform transfers Independently Dates: Start: 07/13/24 Expected End: 08/13/24 Description: Goal Description: Disciplines: OT Outcomes Date/Time User Outcome 07/17/24 1439 Yoanna Han-Mahoney, KWADWO/L Progressing Occupational Therapy Care Plan (Resolved) There are no resolved problems. Principal Problem: Dementia with behavioral disturbance ([facility]) Active Problems: Altered mental status Status post colostomy, follow-up exam ([facility]) Cosigned by MAYNOR Navarro/Jerome at [...] at the bedside 7. Instruct patient/ patient clearance representative about use of safety devices 8. Include patient/ patient clearance representative in decisions related to safety Outcome: Progressing Note: Evaluation of progress towards goal: Patient is injury free at this time. Problem: Knowledge Deficit Goal: Patient/patient clearance representative demonstrates understanding of disease process, treatment [...] Score of =/> 25 or indicated by [facility] Assessment Goal: Patient should be free from fall Description: Interventions: 1. Deaver to environment 2. Hourly rounds addressing the [...] non-skid footwear 11. Teach patient and patient clearance representative to maintain environment for safety and [...] (cane, walker) within reach 19. Request patient clearance representative bring adaptive equipment/mobility aids from home or obtain and provide as needed 20. Consult pharmacy regarding effects of med's affecting mobility, cognition, and alternatives 21. Obtain physician order for PT if risk factors associated with mobility are present 22. Obtain physician order for OT as appropriate 23. Utilize diversional activities 24. Educate patient and patient clearance representative how to maintain a safe environment during visitation times (notify nurse prior to leaving bedside) 25. Consider appropriateness of medical or non-medical affairs director 26. Set up voiding schedule as appropriate (every 2 hours) Outcome: Progressing Note: Evaluation of progress towards goal: Patient is free from falls at this time. DISCHARGE PLANNING NOTE fax referral to [facility] to [phone] shannan Alyssa Images from the original note were not included. DISCHARGE PLANNING NOTE Discussed patient today during rounds. Plan- IPR/TBI center. Barriers- acceptance, auth. This account underwriter called both reviewing facilities and left for admissions to see if they can accept. Asked them to call this account underwriter back. Floor nurse and leadership team aware. Services Requested: Services Requested Patient expects to be discharged to:: home vs snf Patient Goals: Goals: Goals <enter goal here> (pt-stated) Evaluation of progress towards goal: TBD-pending PT/OT lynnette - NANCY PARRISH 07/17/24 9:42 AM At this time we do not have an accepting TBI/IPR facility. This account underwriter and sales floor manager attempted to speak with patient's but she is not in the room. Also tried to call her but it went right to VM and her VM box is full. - NANCY PARRISH 07/17/24 1:43 PM [facility] called this account underwriter since they don't respond in careport and they can not accept patient. This account underwriter and sales floor manager spoke with patient's and patient's sister that [...] at the bedside 7. Instruct patient/ patient clearance representative about use of safety devices 8. Include patient/ patient clearance representative in decisions related to safety Outcome: Progressing Note: Evaluation of progress towards goal: Patient remains injury and fall free. Safety precautions in place: call light within reach, bed in lowest position, personal belongings within reach, oriented to environment, and non-slip footwear on. Problem: Knowledge Deficit Goal: Patient/patient clearance representative demonstrates understanding of disease process, treatment [...] be free from fall Description: Interventions: 1. Deaver to environment 2. Hourly rounds addressing the [...] non-skid footwear 11. Teach patient and patient clearance representative to maintain environment for safety and [...] (cane, walker) within reach 19. Request patient clearance representative bring adaptive equipment/mobility aids from home or obtain and provide as needed 20. Consult pharmacy regarding effects of med's affecting mobility, cognition, and alternatives 21. Obtain physician order for PT if risk factors associated with mobility are present 22. Obtain physician order for OT as appropriate 23. Utilize diversional activities 24. Educate patient and patient clearance representative how to maintain a safe environment during visitation times (notify nurse prior to leaving bedside) 25. Consider appropriateness of medical or non-medical affairs director 26. Set up voiding schedule as appropriate [...] Plan Speech Therapy Care Plan (Active) Template: [facility] Speech Problem: Auditory Comprehension Dates: Start: 07/12/24 Disciplines: HOSPITAL CLINIC ASSISTANT Goal: LTG: Patient will comprehend communication related to basic medical and social needs and utilize compensatory strategies to maintain safety in a functional living environment Dates: Start: 07/12/24 Expected End: 08/12/24 Disciplines: HOSPITAL CLINIC ASSISTANT Goal: STG: Patient will answer complex yes/no questions with 90% accuracy with minimal cueing Dates: Start: 07/12/24 Expected End: 08/12/24 Disciplines: HOSPITAL CLINIC ASSISTANT Outcomes Date/Time User Outcome 07/16/24 1520 MAGALI Castellanos Progressing Goal: STG: Patient will complete 1-3 step commands with 90% accuracy with minimal cueing Dates: Start: 07/12/24 Expected End: 08/12/24 Disciplines: HOSPITAL CLINIC ASSISTANT Outcomes Date/Time User Outcome 07/16/24 Willie0 MAGALI Catsellanos Progressing Goal: STG: Patient will complete simple, phrase level auditory comprehension tasks with 90% accuracy with minimal cueing Dates: Start: 07/12/24 Expected End: 08/12/24 Disciplines: HOSPITAL CLINIC ASSISTANT Problem: Cognitive Linguistic Dates: Start: 07/12/24 Disciplines: HOSPITAL CLINIC ASSISTANT Goal: LTG: Patient will display functional cognitive-linguistic skills to demonstrate appropriate communication and safety within daily activities in a functional living environment Dates: Start: 07/12/24 Expected End: 08/12/24 Disciplines: HOSPITAL CLINIC ASSISTANT Goal: STG: Patient will demonstrate sustained attention by maintaining focus during a task for 10 minutes with minimal assistance Dates: Start: 07/12/24 Expected End: 08/12/24 Disciplines: HOSPITAL CLINIC ASSISTANT Outcomes Date/Time User Outcome 07/16/24 1520 Conchita Devi, [facility]-HOSPITAL CLINIC ASSISTANT Progressing Goal: STG: Patient will be appropriately oriented to person, place, time and situation with 90% accuracy with minimal cueing Dates: Start: 07/12/24 Expected End: 08/12/24 Disciplines: HOSPITAL CLINIC ASSISTANT Goal: STG: Patient will recall information discussed during therapy session via retelling/answering questions with 90% accuracy with minimal cueing Dates: Start: 07/12/24 Expected End: 08/12/24 Disciplines: HOSPITAL CLINIC ASSISTANT Problem: High Level Language Dates: Start: 07/12/24 Disciplines: HOSPITAL CLINIC ASSISTANT Goal: LTG: Patient will demonstrate use of self-awareness, goal setting, planning, initiation, self-monitoring and problem solving during daily activities to improve safety and awareness in a functional living environment Dates: Start: 07/12/24 Expected End: 08/12/24 Disciplines: HOSPITAL CLINIC ASSISTANT Goal: STG: Patient will sequence 4-6 steps to a task (verbal, written, pictures) with 90% accuracy with minimal cueing Dates: Start: 07/12/24 Expected End: 08/12/24 Disciplines: HOSPITAL CLINIC ASSISTANT Goal: STG: Patient will provide 3 appropriate solutions to problems of daily living with 90% accuracy with minimal cueing Dates: Start: 07/12/24 Expected End: 08/12/24 Disciplines: HOSPITAL CLINIC ASSISTANT Goal: STG: Patient will demonstrate functional problem solving and safety awareness with 90% accuracy in daily living tasks in order to increase safe interactions with environment and decrease assistance from caregivers Dates: Start: 07/12/24 Expected End: 08/12/24 Disciplines: HOSPITAL CLINIC ASSISTANT Problem: Verbal Expression Dates: Start: 07/12/24 Disciplines: HOSPITAL CLINIC ASSISTANT Goal: LTG: Patient will utilize compensatory strategies to communicate wants and needs effectively to different conversational partners, maintain safety and participate socially in a functional living environment Dates: Start: 07/12/24 Expected End: 08/12/24 Disciplines: HOSPITAL CLINIC ASSISTANT Goal: STG: Patient will respond to simple/complex open ended questions during activities of daily living with 90% accuracy with minimal cueing Dates: Start: 07/12/24 Expected End: 08/12/24 Disciplines: HOSPITAL CLINIC ASSISTANT Goal: STG: Patient will maintain topic of conversation to decrease tangential speech with 90% accuracy with minimal cueing Dates: Start: 07/12/24 Expected End: 08/12/24 Disciplines: HOSPITAL CLINIC ASSISTANT Outcomes Date/Time User Outcome 07/16/24 1520 MAGALI Castellanos Progressing Speech Therapy Care Plan (Resolved) There are no resolved problems. Principal Problem: Dementia with behavioral disturbance ([facility]) Active Problems: Altered mental status Status post colostomy, follow-up exam ([facility] [place] DISCHARGE PLANNING NOTE Resent referral in [facility] to [facility] P#[phone]; F#[phone] sent via secure fax to [phone] Problem: Safety Goal: Patient will be injury free during hospitalization Description: INTERVENTIONS: 1. Assess patient's risk for falls and implement fall prevention plan of care per policy 2. Provide and maintain a safe environment 3. Proper use of double Identifiers 4. Medication administration using the 5 rights 5. Hand hygiene 6. Specimens are labeled at the bedside 7. Instruct patient/ patient clearance representative about use of safety devices 8. Include patient/ patient clearance representative in decisions related to safety Outcome: Progressing Note: Evaluation of progress towards goal: pain will be adequally controlled to allow for rest and adl's Problem: Knowledge Deficit Goal: Patient/patient clearance representative demonstrates understanding of disease process, treatment [...] Score of =/> 25 or indicated by [facility] Assessment Goal: Patient should be free from fall Description: Interventions: 1. Deaver to environment 2. Hourly rounds addressing the [...] non-skid footwear 11. Teach patient and patient clearance representative to maintain environment for safety and [...] (cane, walker) within reach 19. Request patient clearance representative bring adaptive equipment/mobility aids from home or obtain and provide as needed 20. Consult pharmacy regarding effects of med's affecting mobility, cognition, and alternatives 21. Obtain physician order for PT if risk factors associated with mobility are present 22. Obtain physician order for OT as appropriate 23. Utilize diversional activities 24. Educate patient and patient clearance representative how to maintain a safe environment during visitation times (notify nurse prior to leaving bedside) 25. Consider appropriateness of medical or non-medical affairs director 26. Set up voiding schedule as appropriate (every 2 hours) Outcome: Progressing Note: Evaluation of progress towards goal: fall bundle DISCHARGE PLANNING NOTE Clinical updates sent to Referrals sent to [facility] (P# [phone] ; F# [phone]) and to [facility] and to [facility] DISCHARGE PLANNING NOTE [facility] Via secure fax to [phone]. This is theor fax per phone call to facility. P#[phone]. Provider not in Careport. DISCHARGE PLANNING NOTE Discharge plan- TBD waiting to hear from TBI/IPR who can accept out of the reviewing facilities. [facility] in [facility] called this account underwriter and will call his to discuss. If they are able to accept she would owe private pay for room and board and money is due up front. Updated leadership team and floor nurse. - NANCY PARRISH 07/16/24 8:50 AM Discussed patient today during rounds. Called [facility] and left a VM for admissions to see if they can accept. Awaiting responses from the other facilities to respond. Barriers- acceptance, auth. - NANCY PARRISH 07/16/24 10:58 AM Called admissions at [facility] and [facility] and left VM asking them if they can accept and to call this account underwriter back. Left callback #. - NANCY PARRISH 07/16/24 11:05 AM Still awaiting responses from all reviewing IPR this time. Leadership aware. Called [facility] and spoke with admissions and they will review. Also called [facility] and left another VM. Both in [place] are still reviewing at this time. - [...] at the bedside 7. Instruct patient/ patient clearance representative about use of safety devices 8. Include patient/ patient clearance representative in decisions related to safety Outcome: Progressing Note: Evaluation of progress towards goal: Patient remains injury and fall free. Safety precautions in place: call light within reach, bed in lowest position, personal belongings within reach, oriented to environment, and non-slip footwear on. Problem: Knowledge Deficit Goal: Patient/patient clearance representative demonstrates understanding of disease process, treatment [...] Collaborate with ancillary departments 14. Include patient/patient clearance representative in decisions related to anxiety Outcome: Progressing Note: Evaluation of progress towards goal: Patient's anxiety appears to be at manageable level. Problem: Moderate - High Risk Fall Score Description: Gallegos Fall Score of =/> 25 or indicated by [facility] Assessment Goal: Patient should be free from fall Description: Interventions: 1. Deaver to environment 2. Hourly rounds addressing the [...] non-skid footwear 11. Teach patient and patient clearance representative to maintain environment for safety and [...] (cane, walker) within reach 19. Request patient clearance representative bring adaptive equipment/mobility aids from home or obtain and provide as needed 20. Consult pharmacy regarding effects of med's affecting mobility, cognition, and alternatives 21. Obtain physician order for PT if risk factors associated with mobility are present 22. Obtain physician order for OT as appropriate 23. Utilize diversional activities 24. Educate patient and patient clearance representative how to maintain a safe environment during visitation times (notify nurse prior to leaving bedside) 25. Consider appropriateness of medical or non-medical affairs director 26. Set up voiding schedule as appropriate [...] at the bedside 7. Instruct patient/ patient clearance representative about use of safety devices 8. Include patient/ patient clearance representative in decisions related to safety Outcome: [...] Score of =/> 25 or indicated by [facility] Assessment Goal: Patient should be free from fall Description: Interventions: 1. Deaver to environment 2. Hourly rounds addressing the [...] non-skid footwear 11. Teach patient and patient clearance representative to maintain environment for safety and [...] (cane, walker) within reach 19. Request patient clearance representative bring adaptive equipment/mobility aids from home or obtain and provide as needed 20. Consult pharmacy regarding effects of med's affecting mobility, cognition, and alternatives 21. Obtain physician order for PT if risk factors associated with mobility are present 22. Obtain physician order for OT as appropriate 23. Utilize diversional activities 24. Educate patient and patient clearance representative how to maintain a safe environment during visitation times (notify nurse prior to leaving bedside) 25. Consider appropriateness of medical or non-medical affairs director 26. Set up voiding schedule as appropriate [...] at the bedside 7. Instruct patient/ patient clearance representative about use of safety devices 8. Include patient/ patient clearance representative in decisions related to safety Outcome: Progressing Note: Evaluation of progress towards goal: Proper identifiers used with patient care and medication administration. Remains free of injury during shift Problem: Knowledge Deficit Goal: Patient/patient clearance representative demonstrates understanding of disease process, treatment [...] Collaborate with ancillary departments 14. Include patient/patient clearance representative in decisions related to anxiety Outcome: Progressing Note: Evaluation of progress towards goal: Patient verbalizes a tolerable anxiety level and remains free of signs and symptoms of anxiety. Will continue to explain treatment plan and monitor for changes in anxiety levels. Problem: Moderate - High Risk Fall Score Description: Gallegos Fall Score of =/> 25 or indicated by [facility] Assessment Goal: Patient should be free from fall Description: Interventions: 1. Deaver to environment 2. Hourly rounds addressing the [...] non-skid footwear 11. Teach patient and patient clearance representative to maintain environment for safety and [...] (cane, walker) within reach 19. Request patient clearance representative bring adaptive equipment/mobility aids from home or obtain and provide as needed 20. Consult pharmacy regarding effects of med's affecting mobility, cognition, and alternatives 21. Obtain physician order for PT if risk factors associated with mobility are present 22. Obtain physician order for OT as appropriate 23. Utilize diversional activities 24. Educate patient and patient clearance representative how to maintain a safe environment during visitation times (notify nurse prior to leaving bedside) 25. Consider appropriateness of medical or non-medical affairs director 26. Set up voiding schedule as appropriate [...] at the bedside 7. Instruct patient/ patient clearance representative about use of safety devices 8. Include patient/ patient clearance representative in decisions related to safety Outcome: Progressing Note: Evaluation of progress towards goal: pain will be controlled to allow for rest and adl's Problem: Knowledge Deficit Goal: Patient/patient clearance representative demonstrates understanding of disease process, treatment [...] Collaborate with ancillary departments 14. Include patient/patient clearance representative in decisions related to anxiety Outcome: Progressing Note: Evaluation of progress towards goal: listen and reassuring Problem: Moderate - High Risk Fall Score Description: Gallegos Fall Score of =/> 25 or indicated by [facility] Assessment Goal: Patient should be free from fall Description: Interventions: 1. Deaver to environment 2. Hourly rounds addressing the [...] non-skid footwear 11. Teach patient and patient clearance representative to maintain environment for safety and [...] (cane, walker) within reach 19. Request patient clearance representative bring adaptive equipment/mobility aids from home or obtain and provide as needed 20. Consult pharmacy regarding effects of med's affecting mobility, cognition, and alternatives 21. Obtain physician order for PT if risk factors associated with mobility are present 22. Obtain physician order for OT as appropriate 23. Utilize diversional activities 24. Educate patient and patient clearance representative how to maintain a safe environment during visitation times (notify nurse prior to leaving bedside) 25. Consider appropriateness of medical or non-medical affairs director 26. Set up voiding schedule as appropriate (every 2 hours) Outcome: Progressing Note: Evaluation of progress towards goal: fallbundle DISCHARGE PLANNING NOTE Referrals sent to [facility] (P# [phone] ; F# [phone]) and to [facility] and to [facility] and to [facility] in [facility] p#: [phone] f#: [phone] DISCHARGE PLANNING NOTE Follow-up Discharge Planning Progress Note Per RN during discharge transition rounds, barriers to discharge are: Accepting acute inpatient rehabilitation center. Discharge Plan: Audio Production Engineer followed up with patient, spouse and patient sister at bedside. Updated, [facility], not accepting, not in network with [...] Discussed lower levels of care such as Shelter Facility and Home care. Patient spouse and sister verbalized understanding. Choices received. [facility] tasked to send referrals. Attempted to [...] at the bedside 7. Instruct patient/ patient clearance representative about use of safety devices 8. Include patient/ patient clearance representative in decisions related to safety Outcome: Progressing Note: Evaluation of progress towards goal: Proper identifiers used with patient care and medication administration. Remains free of injury during shift Problem: Knowledge Deficit Goal: Patient/patient clearance representative demonstrates understanding of disease process, treatment [...] Collaborate with ancillary departments 14. Include patient/patient clearance representative in decisions related to anxiety Outcome: [...] be free from fall Description: Interventions: 1. Deaver to environment 2. Hourly rounds addressing the [...] non-skid footwear 11. Teach patient and patient clearance representative to maintain environment for safety and [...] (cane, walker) within reach 19. Request patient clearance representative bring adaptive equipment/mobility aids from home or obtain and provide as needed 20. Consult pharmacy regarding effects of med's affecting mobility, cognition, and alternatives 21. Obtain physician order for PT if risk factors associated with mobility are present 22. Obtain physician order for OT as appropriate 23. Utilize diversional activities 24. Educate patient and patient clearance representative how to maintain a safe environment during visitation times (notify nurse prior to leaving bedside) 25. Consider appropriateness of medical or non-medical affairs director 26. Set up voiding schedule as appropriate (every 2 hours) Outcome: Progressing Note: Evaluation of progress towards goal: Call light within reach. Remains free of fall or injury. Environment free of clutter. Problem: Safety - Medical Restraint Goal: Remains free of injury from restraints (Restraint for Interference with Material Stress Tester) Description: INTERVENTIONS: 1. Determine that other, less [...] Free from restraint(s) (Restraint for Interference with Material Stress Tester) Description: INTERVENTIONS: 1. ONCE/SHIFT or MINIMUM Q12H: [...] patient's and sister were very upset that [facility] did not accept patient. They declined to offer any other choices for facilities to her at this time. Lesia encouraged them to allow her to make referrals to some TBI facilities at [facility] and in [place] but at this time they are angry that [facility] did not accept patient. Audio Production Engineer will request SW follow up with them in the morning to obtain choices to continue developing a transition of care plan. DISCHARGE PLANNING NOTE Referral sent to [facility] P#[phone]; F#[phone]); [facility] P# [phone] [calling report];/[facility] (P# [calling report]; F# ) DISCHARGE PLANNING NOTE Per RN during discharge transition rounds, barriers to discharge are: Telesitter, PMR re-eval, Seroquel dose adjustment. Discharge Plan: I[facility] for TBI rehab. PT/OT recommended IPR. CN met with and sister Ewa. wants a referral sent [facility]. CN discussed discharge and making referrals to other TBI/ IPR rehabs in the state, and sister stated they are putting all their zak in [facility] being able to accept the patient. Briquette Operator will continue to follow for any discharge needs. - Lesia Caba RN 07/13/24 12:18 PM Addendum: [facility] with patients [employer] insurance. gave CN two more choices : [facility]PR and [facility] rehab. [facility] tasked to send referrals. and sister are calling insurance to ask about a one time contract to [facility]. Ethel , [facility] rep, stopped in to talk to and sister. - Lesia Caba RN 07/13/24 2:10 PM Addendum: Patient's and sister asked CN to listen and talk to insurance checker regarding a one time approval for the IPR: [facility]. Soccer Referee Xiomy with [employer] stated attending or managing physician needs to document patient's health status and progression, information on why the patient needs to go this specific facility for rehab, include diagnosis codes and services codes. Fax: Prior Auth Request to [phone] attn: Prior Auth Request at [employer]. CN sent pic chat to Dr. Nichol [...] PM DISCHARGE PLANNING NOTE Referral to [facility] (P# ; F# ) Occupational Therapy Evaluation [...] reflux disease) High cholesterol Perforated sigmoid colon ([facility]) Past Surgical History: Procedure Laterality Date ARM EXPLORATION WITH REPAIR LACERATED ULNAR ARTERY Left 11/24/2019 Performed by Skyler Bowen MD at [facility] [place] 3YEARS AGO COLOSTOMY CLOSURE Therapy Plan Need [...] early mobility guidelines. Equipment: gait belt, telemetry Telemetry/Biological Scientist: Yes Oxygen Used: room air Other: fall [...] and pants. Patient was able to static oil prospecting observer front of toilet with contact guard. Patient was unable to void due to trouble with processing, safety and judgement. Home Management - IADL Other: patient has trouble executing tasks. patient was able to ambulate into bathroom with contact guard. patient required min assist to doff underware and pants. Patient was able to static oil prospecting observer front of toilet with contact guard. Patient [...] problems. Principal Problem: Dementia with behavioral disturbance ([facility]) Active Problems: Altered mental status Status post colostomy, follow-up exam ([facility]) Physical Therapy Evaluation Discharge Recommendations [...] 6 Clicks: Basic Mobility Raw Score: 20 [facility] G Code Modifier: CJ Therapy Plan Need for skilled Physical Therapy to address deficits in functional mobility due to a status decline resulting from admission 07/06 as a transfer from [facility] for neurological work up. Patient diagnosed with early onset dementia 2022, per spouse report [facility] and med changes cognitive status had improved and stabilized prior to fall in May 2024. 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 Pt discharged to inpatient treatment facility and returned to [facility] for scheduled MRI. 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 Principal Problem: Dementia with behavioral disturbance ([facility]) Active Problems: Altered mental status Status post colostomy, follow-up exam ([facility] [place] [place] Problem: Safety Goal: Patient will be injury free during hospitalization Description: INTERVENTIONS: 1. Assess patient's risk for falls and implement fall prevention plan of care per policy 2. Provide and maintain a safe environment 3. Proper use of double Identifiers 4. Medication administration using the 5 rights 5. Hand hygiene 6. Specimens are labeled at the bedside 7. Instruct patient/ patient clearance representative about use of safety devices 8. Include patient/ patient clearance representative in decisions related to safety Outcome: Progressing Note: Evaluation of progress towards goal: Patient remains injury and fall free. Safety precautions in place: call light within reach, bed in lowest position, personal belongings within reach, oriented to environment, and non-slip footwear on. Problem: Knowledge Deficit Goal: Patient/patient clearance representative demonstrates understanding of disease process, treatment [...] Collaborate with ancillary departments 14. Include patient/patient clearance representative in decisions related to anxiety Outcome: Progressing Note: Evaluation of progress towards goal: Patient's has at bedside to help with spells of anxiety. Problem: Moderate - High Risk Fall Score Description: Gallegos Fall Score of =/> 25 or indicated by [facility] Assessment Goal: Patient should be free from fall Description: Interventions: 1. Deaver to environment 2. Hourly rounds addressing the [...] non-skid footwear 11. Teach patient and patient clearance representative to maintain environment for safety and [...] (cane, walker) within reach 19. Request patient clearance representative bring adaptive equipment/mobility aids from home or obtain and provide as needed 20. Consult pharmacy regarding effects of med's affecting mobility, cognition, and alternatives 21. Obtain physician order for PT if risk factors associated with mobility are present 22. Obtain physician order for OT as appropriate 23. Utilize diversional activities 24. Educate patient and patient clearance representative how to maintain a safe environment during visitation times (notify nurse prior to leaving bedside) 25. Consider appropriateness of medical or non-medical affairs director 26. Set up voiding schedule as appropriate (every 2 hours) Outcome: Progressing Note: Evaluation of progress towards goal: Patient remains injury and fall free. Safety precautions in place: call light within reach, bed in lowest position, personal belongings within reach, oriented to environment, and non-slip footwear on. Problem: Safety - Medical Restraint Goal: Remains free of injury from restraints (Restraint for Interference with Material Stress Tester) Description: INTERVENTIONS: 1. Determine that other, less [...] Free from restraint(s) (Restraint for Interference with Material Stress Tester) Description: INTERVENTIONS: 1. ONCE/SHIFT or MINIMUM Q12H: [...] CN escalated this case to CN leadership. Briquette Operator will continue to follow for any discharge [...] at the bedside 7. Instruct patient/ patient clearance representative about use of safety devices 8. Include patient/ patient clearance representative in decisions related to safety Outcome: Progressing Note: Evaluation of progress towards goal: Patient remains injury free at present time. Safe environment provided and maintained. Medications administered using 5 rights. Problem: Knowledge Deficit Goal: Patient/patient clearance representative demonstrates understanding of disease process, treatment [...] Collaborate with ancillary departments 14. Include patient/patient clearance representative in decisions related to anxiety Outcome: Progressing Note: Evaluation of progress towards goal: Patient has family at bedside assisting with anxiety. Problem: Safety - Medical Restraint Goal: Remains free of injury from restraints (Restraint for Interference with Material Stress Tester) Description: INTERVENTIONS: 1. Determine that other, less [...] Free from restraint(s) (Restraint for Interference with Material Stress Tester) Description: INTERVENTIONS: 1. ONCE/SHIFT or MINIMUM Q12H: [...] continue to follow along. Prognosis Services: Skilled HOSPITAL CLINIC ASSISTANT services to address the above deficits Prognosis/Potential: [...] Plan Speech Therapy Care Plan (Active) Template: [facility] Speech Problem: Auditory Comprehension Dates: Start: 07/12/24 Disciplines: HOSPITAL CLINIC ASSISTANT Goal: LTG: Patient will comprehend communication related to basic medical and social needs and utilize compensatory strategies to maintain safety in a functional living environment Dates: Start: 07/12/24 Expected End: 08/12/24 Disciplines: HOSPITAL CLINIC ASSISTANT Goal: STG: Patient will answer complex yes/no questions with 90% accuracy with minimal cueing Dates: Start: 07/12/24 Expected End: 08/12/24 Disciplines: HOSPITAL CLINIC ASSISTANT Goal: STG: Patient will complete 1-3 step commands with 90% accuracy with minimal cueing Dates: Start: 07/12/24 Expected End: 08/12/24 Disciplines: HOSPITAL CLINIC ASSISTANT Goal: STG: Patient will complete simple, phrase level auditory comprehension tasks with 90% accuracy with minimal cueing Dates: Start: 07/12/24 Expected End: 08/12/24 Disciplines: HOSPITAL CLINIC ASSISTANT Problem: Cognitive Linguistic Dates: Start: 07/12/24 Disciplines: HOSPITAL CLINIC ASSISTANT Goal: LTG: Patient will display functional cognitive-linguistic skills to demonstrate appropriate communication and safety within daily activities in a functional living environment Dates: Start: 07/12/24 Expected End: 08/12/24 Disciplines: HOSPITAL CLINIC ASSISTANT Goal: STG: Patient will demonstrate sustained attention by maintaining focus during a task for 10 minutes with minimal assistance Dates: Start: 07/12/24 Expected End: 08/12/24 Disciplines: HOSPITAL CLINIC ASSISTANT Goal: STG: Patient will be appropriately oriented to person, place, time and situation with 90% accuracy with minimal cueing Dates: Start: 07/12/24 Expected End: 08/12/24 Disciplines: HOSPITAL CLINIC ASSISTANT Goal: STG: Patient will recall information discussed during therapy session via retelling/answering questions with 90% accuracy with minimal cueing Dates: Start: 07/12/24 Expected End: 08/12/24 Disciplines: HOSPITAL CLINIC ASSISTANT Problem: High Level Language Dates: Start: 07/12/24 Disciplines: HOSPITAL CLINIC ASSISTANT Goal: LTG: Patient will demonstrate use of self-awareness, goal setting, planning, initiation, self-monitoring and problem solving during daily activities to improve safety and awareness in a functional living environment Dates: Start: 07/12/24 Expected End: 08/12/24 Disciplines: HOSPITAL CLINIC ASSISTANT Goal: STG: Patient will sequence 4-6 steps to a task (verbal, written, pictures) with 90% accuracy with minimal cueing Dates: Start: 07/12/24 Expected End: 08/12/24 Disciplines: HOSPITAL CLINIC ASSISTANT Goal: STG: Patient will provide 3 appropriate solutions to problems of daily living with 90% accuracy with minimal cueing Dates: Start: 07/12/24 Expected End: 08/12/24 Disciplines: HOSPITAL CLINIC ASSISTANT Goal: STG: Patient will demonstrate functional problem solving and safety awareness with 90% accuracy in daily living tasks in order to increase safe interactions with environment and decrease assistance from caregivers Dates: Start: 07/12/24 Expected End: 08/12/24 Disciplines: HOSPITAL CLINIC ASSISTANT Problem: Verbal Expression Dates: Start: 07/12/24 Disciplines: HOSPITAL CLINIC ASSISTANT Goal: LTG: Patient will utilize compensatory strategies to communicate wants and needs effectively to different conversational partners, maintain safety and participate socially in a functional living environment Dates: Start: 07/12/24 Expected End: 08/12/24 Disciplines: HOSPITAL CLINIC ASSISTANT Goal: STG: Patient will respond to simple/complex open ended questions during activities of daily living with 90% accuracy with minimal cueing Dates: Start: 07/12/24 Expected End: 08/12/24 Disciplines: HOSPITAL CLINIC ASSISTANT Goal: STG: Patient will maintain topic of conversation to decrease tangential speech with 90% accuracy with minimal cueing Dates: Start: 07/12/24 Expected End: 08/12/24 Disciplines: HOSPITAL CLINIC ASSISTANT Speech Therapy Care Plan (Resolved) There are no resolved problems. Principal Problem: Dementia with behavioral disturbance ([facility]) Active Problems: Altered mental status Status post colostomy, follow-up exam ([facility] [place] [place]) Problem: Safety - Medical Restraint Goal: Remains free of injury from restraints (Restraint for Interference with Material Stress Tester) Description: INTERVENTIONS: 1. Determine that other, less [...] Free from restraint(s) (Restraint for Interference with Material Stress Tester) Description: INTERVENTIONS: 1. ONCE/SHIFT or MINIMUM Q12H: [...] elimination needs BEHAVIORAL RESTRAINTS PROVIDER ONE HOUR [id number] EVALUATION NOTE Noé Jeffery was evaluated on [...] at the bedside 7. Instruct patient/ patient clearance representative about use of safety devices 8. Include patient/ patient clearance representative in decisions related to safety Outcome: Progressing Note: Evaluation of progress towards goal: Patient remains injury and fall free. Safety precautions in place: call light within reach, bed in lowest position, personal belongings within reach, oriented to environment, and non-slip footwear on. Problem: Knowledge Deficit Goal: Patient/patient clearance representative demonstrates understanding of disease process, treatment [...] Collaborate with ancillary departments 14. Include patient/patient clearance representative in decisions related to anxiety Outcome: Progressing Note: Evaluation of progress towards goal: Patient has at bedside aiding in assisting with anxiety. Problem: Moderate - High Risk Fall Score Description: Gallegos Fall Score of =/> 25 or indicated by [facility] Assessment Goal: Patient should be free from fall Description: Interventions: 1. Deaver to environment 2. Hourly rounds addressing the [...] non-skid footwear 11. Teach patient and patient clearance representative to maintain environment for safety and [...] (cane, walker) within reach 19. Request patient clearance representative bring adaptive equipment/mobility aids from home or obtain and provide as needed 20. Consult pharmacy regarding effects of med's affecting mobility, cognition, and alternatives 21. Obtain physician order for PT if risk factors associated with mobility are present 22. Obtain physician order for OT as appropriate 23. Utilize diversional activities 24. Educate patient and patient clearance representative how to maintain a safe environment during visitation times (notify nurse prior to leaving bedside) 25. Consider appropriateness of medical or non-medical affairs director 26. Set up voiding schedule as appropriate [...] unpredictable and confused. Discharge Plan: [facility] stated [facility] was sent a referral and they have declined. Waiting input from psych. Briquette Operator will continue to follow for any discharge needs. - Lesia Caba RN 07/11/24 12:06 PM Late entery: CN met with patient, Kari, and sister Ewa on Tuesday afternoon. and sister want the patient to go to a Traumatic Brain Injury rehab unit. CN began researching TBI Rehab units in the area, reported back to the and sister after finding TBI rehab units in [facility]. Sister asked for me to look in [facility]. and sister do not want any referrals send until they are able to meet with the neurologist again, sister wants to look into the TBI units in the [facility] herself before any referrals are sent. - Lesia Caba RN 07/12/24 8:11 AM [address]erral sent to [facility] to assess for admission to [place]. After a clinical review and screening was completed [facility] assessed patient as inappropriate for treatment at that facility. Will alert care team. - NANCY Martines 07/11/24 10:33 AM DISCHARGE PLANNING NOTE Updates to Assurance [phone] Problem: Safety Goal: Patient will be injury free during hospitalization Description: INTERVENTIONS: 1. Assess patient's risk for falls and implement fall prevention plan of care per policy 2. Provide and maintain a safe environment 3. Proper use of double Identifiers 4. Medication administration using the 5 rights 5. Hand hygiene 6. Specimens are labeled at the bedside 7. Instruct patient/ patient clearance representative about use of safety devices 8. Include patient/ patient clearance representative in decisions related to safety Outcome: Progressing Note: Evaluation of progress towards goal: Patient remains injury free at present time. Safe environment provided and maintained. Medications administered using 5 rights. Problem: Knowledge Deficit Goal: Patient/patient clearance representative demonstrates understanding of disease process, treatment [...] Collaborate with ancillary departments 14. Include patient/patient clearance representative in decisions related to anxiety Outcome: Progressing Note: Evaluation of progress towards goal: Patient has at bedside assisting with anxiety. Problem: Moderate - High Risk Fall Score Description: Gallegos Fall Score of =/> 25 or indicated by [facility] Assessment Goal: Patient should be free from fall Description: Interventions: 1. Deaver to environment 2. Hourly rounds addressing the [...] non-skid footwear 11. Teach patient and patient clearance representative to maintain environment for safety and [...] (cane, walker) within reach 19. Request patient clearance representative bring adaptive equipment/mobility aids from home or obtain and provide as needed 20. Consult pharmacy regarding effects of med's affecting mobility, cognition, and alternatives 21. Obtain physician order for PT if risk factors associated with mobility are present 22. Obtain physician order for OT as appropriate 23. Utilize diversional activities 24. Educate patient and patient clearance representative how to maintain a safe environment during visitation times (notify nurse prior to leaving bedside) 25. Consider appropriateness of medical or non-medical affairs director 26. Set up voiding schedule as appropriate [...] injury from restraints (Restraint for Interference with Material Stress Tester) Description: INTERVENTIONS: 1. Determine that other, less [...] Free from restraint(s) (Restraint for Interference with Material Stress Tester) Description: INTERVENTIONS: 1. ONCE/SHIFT or MINIMUM Q12H: [...] elimination needs BEHAVIORAL RESTRAINTS PROVIDER ONE HOUR [id number] EVALUATION NOTE Noé Jeffery was evaluated on [...] at the bedside 7. Instruct patient/ patient clearance representative about use of safety devices 8. Include patient/ patient clearance representative in decisions related to safety Outcome: [...] hygiene technique. 7. Identify and instruct patient/patient clearance representative in use of appropriate isolation precautions for identified infection/symptoms. 8. Provide and discuss with patient/patient clearance representative on educational MDRO sheet. 9. Encourage and monitor nutritional status daily and consult woodyard operator if indicated. 10. Implement neutropenic guidelines as needed. Outcome: Progressing Note: Evaluation of progress towards goal: Patient remains free of any signs of infection. Signs and symptoms being monitor such as fevers, chills, warm/red areas. Problem: Knowledge Deficit Goal: Patient/patient clearance representative demonstrates understanding of disease process, treatment [...] Collaborate with ancillary departments 14. Include patient/patient clearance representative in decisions related to anxiety Outcome: Progressing Note: Evaluation of progress towards goal: Patient's anxiety is at manageable level. Problem: Safety - Medical Restraint Goal: Remains free of injury from restraints (Restraint for Interference with Material Stress Tester) Description: INTERVENTIONS: 1. Determine that other, less [...] Free from restraint(s) (Restraint for Interference with Material Stress Tester) Description: INTERVENTIONS: 1. ONCE/SHIFT or MINIMUM Q12H: [...] on patient's door 9. Provide patient/ patient clearance representative with isolation education. Outcome: Progressing Note: Evaluation of progress towards goal: Discard single-use items. Clean reusable equipment. Wear gloves for direct and indirect patient care. Wash hands before and after care of patient. Problem: Moderate - High Risk Fall Score Description: Gallegos Fall Score of =/> 25 or indicated by [facility] Assessment Goal: Patient should be free from fall Description: Interventions: 1. Deaver to environment 2. Hourly rounds addressing the [...] non-skid footwear 11. Teach patient and patient clearance representative to maintain environment for safety and [...] (cane, walker) within reach 19. Request patient clearance representative bring adaptive equipment/mobility aids from home or obtain and provide as needed 20. Consult pharmacy regarding effects of med's affecting mobility, cognition, and alternatives 21. Obtain physician order for PT if risk factors associated with mobility are present 22. Obtain physician order for OT as appropriate 23. Utilize diversional activities 24. Educate patient and patient clearance representative how to maintain a safe environment during visitation times (notify nurse prior to leaving bedside) 25. Consider appropriateness of medical or non-medical affairs director 26. Set up voiding schedule as appropriate [...] at the bedside 7. Instruct patient/ patient clearance representative about use of safety devices 8. Include patient/ patient clearance representative in decisions related to safety Outcome: [...] hygiene technique. 7. Identify and instruct patient/patient clearance representative in use of appropriate isolation precautions for identified infection/symptoms. 8. Provide and discuss with patient/patient clearance representative on educational MDRO sheet. 9. Encourage and monitor nutritional status daily and consult woodyard operator if indicated. 10. Implement neutropenic guidelines as needed. Outcome: Progressing Note: Evaluation of progress towards goal: patient remains afebrile at this time Problem: Knowledge Deficit Goal: Patient/patient clearance representative demonstrates understanding of disease process, treatment [...] Collaborate with ancillary departments 14. Include patient/patient clearance representative in decisions related to anxiety Outcome: Progressing Note: Evaluation of progress towards goal: discussed w/ patient coping strategies & dietary changes that may aid in controlling stress & anxiety. Problem: Safety - Medical Restraint Goal: Remains free of injury from restraints (Restraint for Interference with Material Stress Tester) Description: INTERVENTIONS: 1. Determine that other, less [...] Free from restraint(s) (Restraint for Interference with Material Stress Tester) Description: INTERVENTIONS: 1. ONCE/SHIFT or MINIMUM Q12H: [...] on patient's door 9. Provide patient/ patient clearance representative with isolation education. Outcome: Progressing Note: Evaluation of progress towards goal: patient remains afebrile at this time Problem: Moderate - High Risk Fall Score Description: Gallegos Fall Score of =/> 25 or indicated by [facility] Assessment Goal: Patient should be free from fall Description: Interventions: 1. Deaver to environment 2. Hourly rounds addressing the [...] non-skid footwear 11. Teach patient and patient clearance representative to maintain environment for safety and [...] (cane, walker) within reach 19. Request patient clearance representative bring adaptive equipment/mobility aids from home or obtain and provide as needed 20. Consult pharmacy regarding effects of med's affecting mobility, cognition, and alternatives 21. Obtain physician order for PT if risk factors associated with mobility are present 22. Obtain physician order for OT as appropriate 23. Utilize diversional activities 24. Educate patient and patient clearance representative how to maintain a safe environment during visitation times (notify nurse prior to leaving bedside) 25. Consider appropriateness of medical or non-medical affairs director 26. Set up voiding schedule as appropriate [...] VILLANUEVA discussed case with colin Solorio SW Briquette Operator will continue to follow for any discharge [...] at the bedside 7. Instruct patient/ patient clearance representative about use of safety devices 8. Include patient/ patient clearance representative in decisions related to safety Outcome: [...] hygiene technique. 7. Identify and instruct patient/patient clearance representative in use of appropriate isolation precautions for identified infection/symptoms. 8. Provide and discuss with patient/patient clearance representative on educational MDRO sheet. 9. Encourage and monitor nutritional status daily and consult woodyard operator if indicated. 10. Implement neutropenic guidelines as needed. Outcome: Progressing Note: Evaluation of progress towards goal: Skin integrity remains in stable condition; remains w/o ss of infection, fever, pain, or increased discomfort. Problem: Knowledge Deficit Goal: Patient/patient clearance representative demonstrates understanding of disease process, treatment [...] be free from fall Description: Interventions: 1. Deaver to environment 2. Hourly rounds addressing the [...] non-skid footwear 11. Teach patient and patient clearance representative to maintain environment for safety and [...] Collaborate with ancillary departments 14. Include patient/patient clearance representative in decisions related to anxiety Outcome: [...] on patient's door 9. Provide patient/ patient clearance representative with isolation education. Outcome: Progressing Note: Evaluation of progress towards goal: Skin integrity remains in stable condition; remains w/o ss of infection, fever, pain, or increased discomfort. Problem: Moderate - High Risk Fall Score Description: Gallegos Fall Score of =/> [facility] Goal: Patient should be free from fall Description: Interventions: 1. Deaver to environment 2. Hourly rounds addressing the [...] non-skid footwear 11. Teach patient and patient clearance representative to maintain environment for safety and [...] (cane, walker) within reach 19. Request patient clearance representative bring adaptive equipment/mobility aids from home or obtain and provide as needed 20. Consult pharmacy regarding effects of med's affecting mobility, cognition, and alternatives 21. Obtain physician order for PT if risk factors associated with mobility are present 22. Obtain physician order for OT as appropriate 23. Utilize diversional activities 24. Educate patient and patient clearance representative how to maintain a safe environment during visitation times (notify nurse prior to leaving bedside) 25. Consider appropriateness of medical or non-medical affairs director 26. Set up voiding schedule as appropriate (every 2 hours) Outcome: Progressing Note: Evaluation of progress towards goal: Call light within reach. Remains free of fall or injury. Environment free of clutter. BEHAVIORAL RESTRAINTS PROVIDER ONE HOUR [id number] EVALUATION NOTE Noé Jeffery was evaluated on [...] at the bedside 7. Instruct patient/ patient clearance representative about use of safety devices 8. Include patient/ patient clearance representative in decisions related to safety Outcome: [...] hygiene technique. 7. Identify and instruct patient/patient clearance representative in use of appropriate isolation precautions for identified infection/symptoms. 8. Provide and discuss with patient/patient clearance representative on educational MDRO sheet. 9. Encourage and monitor nutritional status daily and consult woodyard operator if indicated. 10. Implement neutropenic guidelines as needed. Outcome: Progressing Note: Evaluation of progress towards goal: patient remains afebrile at this time Problem: Knowledge Deficit Goal: Patient/patient clearance representative demonstrates understanding of disease process, treatment [...] of 0 - 24 or indicated by [facility] Assessment Goal: Patient should be free from fall Description: Interventions: 1. Deaver to environment 2. Hourly rounds addressing the [...] non-skid footwear 11. Teach patient and patient clearance representative to maintain environment for safety and [...] Collaborate with ancillary departments 14. Include patient/patient clearance representative in decisions related to anxiety Outcome: [...] injury from restraints (Restraint for Interference with Material Stress Tester) Description: INTERVENTIONS: 1. Determine that other, less [...] Free from restraint(s) (Restraint for Interference with Material Stress Tester) Description: INTERVENTIONS: 1. ONCE/SHIFT or MINIMUM Q12H: [...] on patient's door 9. Provide patient/ patient clearance representative with isolation education. Outcome: Progressing Note: Evaluation of progress towards goal: patient remains afebrile at this time DISCHARGE PLANNING NOTE Clinical updates including sent to. [facility]. (P# [phone] ; F# [phone]) via [employer] Query Response Note CDI QUERY TEXT: Altered [...] . Thank you, Ethel Bueno RN, CDI [email or web address] The patient's Clinical Indicators include: As above CDI RESPONSE TEXT: Patient has progression of dementia causing agitation, no evidence of metabolic or toxic encephalopathy. Query created by: Ethel Bueno on 07/09/2024 5:42 AM Electronically signed by: Lonnie Baker MD 07/09/2024 3:22 PM DISCHARGE PLANNING NOTE Referral sent to [facility] (P# [phone] ; F# [phone]) via efax DISCHARGE PLANNING NOTE Per RN during discharge transition rounds, barriers to discharge are: Needs MRI with sedation, LP with sedation, non-violent restraints, confused, restless, and disoriented, psych needs to see Discharge Plan: TBD. Planning placement or inpatient behavioral unit. CN does not believe it is safe for patient to return home. Psych SW following. Briquette Operator will continue to follow for any discharge [...] at the bedside 7. Instruct patient/ patient clearance representative about use of safety devices 8. Include patient/ patient clearance representative in decisions related to safety Outcome: [...] hygiene technique. 7. Identify and instruct patient/patient clearance representative in use of appropriate isolation precautions for identified infection/symptoms. 8. Provide and discuss with patient/patient clearance representative on educational MDRO sheet. 9. Encourage and monitor nutritional status daily and consult woodyard operator if indicated. 10. Implement neutropenic guidelines as needed. Outcome: Progressing Note: Evaluation of progress towards goal: monitor s/s of infection Problem: Knowledge Deficit Goal: Patient/patient clearance representative demonstrates understanding of disease process, treatment [...] of 0 - 24 or indicated by [facility] Assessment Goal: Patient should be free from fall Description: Interventions: 1. Deaver to environment 2. Hourly rounds addressing the [...] non-skid footwear 11. Teach patient and patient clearance representative to maintain environment for safety and [...] Collaborate with ancillary departments 14. Include patient/patient clearance representative in decisions related to anxiety Outcome: [...] injury from restraints (Restraint for Interference with Material Stress Tester) Description: INTERVENTIONS: 1. Determine that other, less [...] Free from restraint(s) (Restraint for Interference with Material Stress Tester) Description: INTERVENTIONS: 1. ONCE/SHIFT or MINIMUM Q12H: [...] hourly rounding BEHAVIORAL RESTRAINTS PROVIDER ONE HOUR [id number] EVALUATION NOTE Noé Jeffery was evaluated on [...] PPH NIGHT BEHAVIORAL RESTRAINTS PROVIDER ONE HOUR [id number] EVALUATION NOTE Noé Jeffery was evaluated on [...] at the bedside 7. Instruct patient/ patient clearance representative about use of safety devices 8. Include patient/ patient clearance representative in decisions related to safety Outcome: [...] hygiene technique. 7. Identify and instruct patient/patient clearance representative in use of appropriate isolation precautions for identified infection/symptoms. 8. Provide and discuss with patient/patient clearance representative on educational MDRO sheet. 9. Encourage and monitor nutritional status daily and consult woodyard operator if indicated. 10. Implement neutropenic guidelines as needed. Outcome: Progressing Note: Evaluation of progress towards goal: Patient has no infection at this time. Problem: Knowledge Deficit Goal: Patient/patient clearance representative demonstrates understanding of disease process, treatment [...] of 0 - 24 or indicated by [facility] Assessment Goal: Patient should be free from fall Description: Interventions: 1. Deaver to environment 2. Hourly rounds addressing the [...] non-skid footwear 11. Teach patient and patient clearance representative to maintain environment for safety and [...] Collaborate with ancillary departments 14. Include patient/patient clearance representative in decisions related to anxiety Outcome: [...] at the bedside 7. Instruct patient/ patient clearance representative about use of safety devices 8. Include patient/ patient clearance representative in decisions related to safety Outcome: [...] hygiene technique. 7. Identify and instruct patient/patient clearance representative in use of appropriate isolation precautions for identified infection/symptoms. 8. Provide and discuss with patient/patient clearance representative on educational MDRO sheet. 9. Encourage and monitor nutritional status daily and consult woodyard operator if indicated. 10. Implement neutropenic guidelines as needed. Outcome: Progressing Note: Evaluation of progress towards goal: monitor s/s of infection, monitor labs, standard precautions Problem: Knowledge Deficit Goal: Patient/patient clearance representative demonstrates understanding of disease process, treatment [...] be free from fall Description: Interventions: 1. Deaver to environment 2. Hourly rounds addressing the [...] non-skid footwear 11. Teach patient and patient clearance representative to maintain environment for safety and [...] at the bedside 7. Instruct patient/ patient clearance representative about use of safety devices 8. Include patient/ patient clearance representative in decisions related to safety Outcome: [...] hygiene technique. 7. Identify and instruct patient/patient clearance representative in use of appropriate isolation precautions for identified infection/symptoms. 8. Provide and discuss with patient/patient clearance representative on educational MDRO sheet. 9. Encourage and monitor nutritional status daily and consult woodyard operator if indicated. 10. Implement neutropenic guidelines as needed. Outcome: Progressing Note: Evaluation of progress towards goal: Patient remains free of any signs of infection. Signs and symptoms being monitor such as fevers, chills, warm/red areas. Problem: Knowledge Deficit Goal: Patient/patient clearance representative demonstrates understanding of disease process, treatment [...] of 0 - 24 or indicated by [facility] Assessment Goal: Patient should be free from fall Description: Interventions: 1. Deaver to environment 2. Hourly rounds addressing the [...] non-skid footwear 11. Teach patient and patient clearance representative to maintain environment for safety and [...] Description: INTERVENTIONS: 1. Encourage patient or legal clearance representative to report early pain and ask [...] per policy 9. Teach patient or legal clearance representative interventions for comforting Outcome: Completed Note: Evaluation of progress towards goal: Patient has no complaints of pain. Reassessed per policy. An attempt was made to interview the patient today in the presence of his . The patient refused and asked the account underwriter to leave stating that he does not want a psychiatric evaluation. Psychiatry will sign off. Images from the original note were not included. DISCHARGE PLANNING NOTE Audio Production Engineer met with patient, introduced self, and explained role. Patient educated on safe discharge plan. Pt admitted 07/06/2024 with Dementia with behavioral disturbance ([facility]) [F03.918] At risk for long QT syndrome [Z91.89] Altered mental status [R41.82] per chart review. Consults: Neurology and Psychiatry Discharge Barriers per Daily Transition Rounds and chart review: Psych and neuro to see, will need EEG, MRI, CT brain. Past Medical History: Diagnosis Date GERD (gastroesophageal reflux disease) High cholesterol Perforated sigmoid colon ([facility]) Prior to admission patient was living with spouse/significant other and self care. Medical equipment patient used prior to admission includes: CPAP. Patient spouse denies need for transportation/ food/ prescription medication assistance resources. PCP: JAE LOPEZ MD Pharmacy:[facility] PCP and pharmacy confirmed with patient. [...] 07/06/24 11:02 AM documented in this encounter [facility] 07-22-2024 Nurse Note AVS discussed with patient and family, no further questions about discharge. No further needs identified. Patient taken downstairs by wheelchair to be driven home by . Patient still off unit at this time 11:58 s/p sedated MRI & LP procedure. Per neurologist, Dr Johnson, patient needs to remain flat 1-2hrs & may have regular diet. Audio Production Engineer awaiting patient return to unit & per report 1:1 sitter remains at patient bedside. documented in this encounter [facility] 07-22-2024 Plan of care note [...] at the bedside 7. Instruct patient/ patient clearance representative about use of safety devices 8. Include patient/ patient clearance representative in decisions related to safety Outcome: Progressing Note: Evaluation of progress towards goal: pt remains free from injury. Family at bedside. Problem: Knowledge Deficit Goal: Patient/patient clearance representative demonstrates understanding of disease process, treatment [...] Score of =/> 25 or indicated by [facility] Assessment Goal: Patient should be free from fall Description: Interventions: 1. Deaver to environment 2. Hourly rounds addressing the [...] non-skid footwear 11. Teach patient and patient clearance representative to maintain environment for safety and [...] (cane, walker) within reach 19. Request patient clearance representative bring adaptive equipment/mobility aids from home or obtain and provide as needed 20. Consult pharmacy regarding effects of med's affecting mobility, cognition, and alternatives 21. Obtain physician order for PT if risk factors associated with mobility are present 22. Obtain physician order for OT as appropriate 23. Utilize diversional activities 24. Educate patient and patient clearance representative how to maintain a safe environment during visitation times (notify nurse prior to leaving bedside) 25. Consider appropriateness of medical or non-medical affairs director 26. Set up voiding schedule as appropriate (every 2 hours) Outcome: Progressing Note: Evaluation of progress towards goal: pt remains free from falls. Fall precautions in place and family at bedside Problem: Moderate - High Risk Fall Score Description: Gallegos Fall Score of =/> [facility] Goal: Patient should be free from fall Description: Interventions: 1. Deaver to environment 2. Hourly rounds addressing the [...] non-skid footwear 11. Teach patient and patient clearance representative to maintain environment for safety and [...] (cane, walker) within reach 19. Request patient clearance representative bring adaptive equipment/mobility aids from home or obtain and provide as needed 20. Consult pharmacy regarding effects of med's affecting mobility, cognition, and alternatives 21. Obtain physician order for PT if risk factors associated with mobility are present 22. Obtain physician order for OT as appropriate 23. Utilize diversional activities 24. Educate patient and patient clearance representative how to maintain a safe environment during visitation times (notify nurse prior to leaving bedside) 25. Consider appropriateness of medical or non-medical affairs director 26. Set up voiding schedule as appropriate (every 2 hours) Outcome: Progressing Note: Evaluation of progress towards goal: pt remains free from falls. Fall precautions in place and family at bedside [facility] 07-21-2024 Progress note Formatting of t his note might be different from the original. DISCHARGE PLANNING NOTE Audio Production Engineer spoke with RN KAY Graf and with credit charge authorizer Mylena about current situation regarding appeal decision and DC plan to home with outpatient services. Audio Production Engineer placed a call to the who was in the patient's room due to the questions she had re: the discharge plan. Audio Production Engineer spoke with , Kari on 07/21/24 at 1325. Audio Production Engineer reviewed Eduardo's DC Appeal Determination Notification with the who confirmed that she had received a voicemail from [facility] this morning. Audio Production Engineer explained that Eduardo had agreed with the termination of hospital services after having reviewed the uploaded clinical documents from this hospitalization that account underwriter had sent to them yesterday. expressed verbal understanding to account underwriter of Eduardo's decision. Audio Production Engineer explained that patient's financial liability would begin at Noon on 07/22/24 and offered our care navigation assistance with obtaining transportation to home. had questions about why referrals were not made to fpc facilities that family had now chosen, [facility] ([place]) and [facility] ([facility]). Audio Production Engineer explained to the that the patient did not meet the clinical criteria this time for a fpc/rehab facility level of care and reminded her that a discussion about this took place this past week/yesterday with the treatment team. explained that she never agreed to take her home and her and her family now want SNF placement. Audio Production Engineer continued to explain to the process of [...] prior to bringing him to the hospital. Audio Production Engineer offered supportive listening to the and also offered for her to connect with patient's PCP, Dr. Lopez after she gets her home for resources. Audio Production Engineer also discussed the outpatient TBI clinic appointment that was being discussed yesterday and that information would be included on patient's after visit summary. Audio Production Engineer explained that if was not going to make arrangements to take patient home by noon on 07/22, that patient's financial responsibility of $2640.00 per day would begin. expressed verbal understanding to account underwriter. Audio Production Engineer emailed financial responsibility form with instruction to credit charge authorizerCm (and cce'd today's RN Lesia Felton for awareness) for bedside delivery today. is aware of pending paper copy delivery of this form. - NELLI GLEZ COMPUTER BOOKKEEPER CARE NAVIGATION 07/21/24 2:11 PM [facility] 07-21-2024 Progress note Formatting of t his note might be different from the original. DISCHARGE PLANNING NOTE We have received DC Appeal Determination Notification from Daryl and Daryl has agreed with the termination of services. Beneficiary liability begins 07.22.2024 by Noon. Beneficiary and/or beneficiary clearance representative were to be notified of determination via phone call. Joanta determination notification rec'd at 1032 and letter rec'd [phone] were received by account underwriter via fax. Audio Production Engineer uploaded documents to document list. Documentation updated. Audio Production Engineer received forwarded voice mail 07/21/24 at 1032 from Eduardo Duran's Immediate Advocacy Department , who had left message on Care Navigation Department voice mail at 1617 on 07/20/24, stating he was representing patient's family who had called [facility] asking 1) why denial reason wasn't given re: transfer to another care facility and 2) if the preferred facility by family was able to accept. Reference Case # given from Nica [id number]. Audio Production Engineer attempted to call Nica back on 07/21/24 at 1214 and account underwriter rec'd auto message from [facility] which stated only live phone calls with [facility] are Tuesday thru Tuesday. Audio Production Engineer left voicemail citing reference case # [id number]. Audio Production Engineer stated reason for return phone call and requested call back from Nica. - NELLI GLEZ COMPUTER BOOKKEEPER CARE NAVIGATION 07/21/24 12:37 PM [facility] 07-21-2024 Plan of care note Problem: [...] at the bedside 7. Instruct patient/ patient clearance representative about use of safety devices 8. Include patient/ patient clearance representative in decisions related to safety Outcome: Progressing Note: Evaluation of progress towards goal: Pain will be adequately controlled to allow for rest and adl's Problem: Knowledge Deficit Goal: Patient/patient clearance representative demonstrates understanding of disease process, treatment [...] Score of =/> 25 or indicated by [facility] Assessment Goal: Patient should be free from fall Description: Interventions: 1. Deaver to environment 2. Hourly rounds addressing the [...] non-skid footwear 11. Teach patient and patient clearance representative to maintain environment for safety and [...] (cane, walker) within reach 19. Request patient clearance representative bring adaptive equipment/mobility aids from home or obtain and provide as needed 20. Consult pharmacy regarding effects of med's affecting mobility, cognition, and alternatives 21. Obtain physician order for PT if risk factors associated with mobility are present 22. Obtain physician order for OT as appropriate 23. Utilize diversional activities 24. Educate patient and patient clearance representative how to maintain a safe environment during visitation times (notify nurse prior to leaving bedside) 25. Consider appropriateness of medical or non-medical affairs director 26. Set up voiding schedule as appropriate (every 2 hours) Outcome: Progressing Note: Evaluation of progress towards goal: fall bundle [employer] 07-21-2024 History of Present illness Narrative Images from the original note were not included. 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 [facility] Neurology General Neurology Consultation Progress Note Consult Neurology Service: [phone] Primary Team: Meng Hospitalist Chief Concern and Reason for Consultation: cognitive decline Interval History: Noé Jeffery is a 59 y.o. year old male for whom Neurology was consulted for chief concern of cognitive decline. He has history of hyperlipidemia, complex sleep apnea, GERD, type 2 diabetes, major neurocognitive disorder with biomarkers confirmed early onset Alzheimer's disease (established at [facility] in October 2022), and epilepsy from [...] and proprioception throughout. Cerebellar: Able to do [id number] bilaterally; normal coordination Gait and station: Deferred. [...] confirmed early onset Alzheimer's disease (established at [facility] in October 2022), and epilepsy from [...] to Tuesday 12-1:00 p.m. Primary Neurology service: [phone] Consult neurology service: [phone] Resident Stroke Service: [phone] If the patient belongs to the Stroke [...] List: Principal Problem: Dementia with behavioral disturbance ([facility] [place] [place] Active Problems: Altered mental status Status post colostomy, follow-up exam ([facility] [place] Consulting Providers Provider Service Specialty Mina Franks MD Psychiatry Psychiatry Jessica Johnson MD -- Neurology Sonya Astudillo MD Z Physical Medicine and Rehabilitation Physical Medicine & Rehabilitation Chief complaint-behavioral issues 59-year-old male patient with Confirmed early onset Alzheimer's disease established in [facility] October 2022, patient had fall June 09, [...] per family request. I also spoke with [facility] neurology 's office. They said that they are independent office and they do not have resources for transfer or admission to [facility]. They also will not be able [...] from the original note were not included. [facility] HOSPITALIST PROGRESS NOTE 07/18/2024 Patient Name: Noé Jeffery : 1965 Code status: Problem List: Principal Problem: Dementia with behavioral disturbance ([facility] [place] Active Problems: Altered mental status Status post colostomy, follow-up exam ([facility] [place] Consulting Providers Provider Service Specialty Mina Franks MD Psychiatry Psychiatry Jessica Johnson MD -- Neurology Sonya Astudillo MD Z Physical Medicine and Rehabilitation Physical Medicine & Rehabilitation Chief complaint-behavioral issues 59-year-old male patient with Confirmed early onset Alzheimer's disease established in [facility] October 2022, patient had fall June 09, [...] today. Patient working with therapies. Going to [facility]. No new weakness. Objective: Last Filed Vitals: [...] left ulnar artery Dementia with behavioral disturbance ([facility] [place] Altered mental status Status post colostomy, follow-up exam ([facility] [place] PLAN Cont PT/OT - would recommend inpatient [...] Summary: Pt transferred and direct admitted to [facility] as a transfer from [facility] for neurological evaluation 2/2 aggressive behavior and hostility. PMH: early-onset dementia, T2DM, GERD, and perforated colon. Biochemical Data, Medical Tests, and Procedures: 07/16, restraints: pt now out of restraints with broadcaster at side Labs: Results from last 3 [...] (H) 05/10/2016 Lab Results Component Value Date [id number] 526 07/08/2024 Lab Results Component Value Date [...] capsule 500 mg 500 mg oral Q12H [facility] Nichol Heath MD 500 mg at 07/17/24 [...] injection 5,000 Units 5,000 Units subcutaneous Q8H [facility] Nichol Heath MD 5,000 Units at 07/17/24 [...] Skin (per nursing flow sheets): Skin Color: [place]; Pale (07/17/24904) Skin Temp: Warm; Dry (07/17/24904) [...] oz) Admit Weight: 83.9 kg (unknown, 06/24) [place] Body Weight: Unknown as no wt on file Weight Changes: No wt since admission 2/2 pt aggression Admit Body Mass Index: Same as current BMI Current Body Mass Index: Body mass index is 30.78 kg/m . Comparative Standards: Estimated Energy Needs: 0207-2841 kcals daily. Method and weight used: 25-32 kcal/kg IBW Estimated Protein Needs: 74-124 grams daily. Method and weight used: 1.2-2g protein/kg IBW Estimated Fluid Needs: 8788-7720 ml daily. Method weight used: 1 ml/kcal Comments: floor needs Malnutrition Status: Malnutrition Present: No NUTRITION DIAGNOSIS: Intake Diagnosis: Predicted suboptimal nutrient intake (NI 5.11.1)--ongoing NUTRITION INTERVENTIONS: Meals and Snacks: Continue per HOSPITAL CLINIC ASSISTANT and medical team recommendations Supplements: Will add [...] from the original note were not included. [facility] 07/17/2024 Patient Name: Noé Jeffery : 1965 Code status: Problem List: Principal Problem: Dementia with behavioral disturbance ([facility] [place] Active Problems: Altered mental status Status post colostomy, follow-up exam ([facility] [place] Consulting Providers Provider Service Specialty Mina Franks MD Psychiatry Psychiatry Jessica Johnson MD -- Neurology Sonya Astudillo MD Z Physical Medicine and Rehabilitation Physical Medicine & Rehabilitation Chief complaint-behavioral issues 59-year-old male patient with Confirmed early onset Alzheimer's disease established in [facility] October 2022, patient had fall June 09, [...] note were not included. [facility] 07/16/2024 Patient Name: Noé Jeffery : 1965 Problem List: Principal Problem: Dementia with behavioral disturbance ([facility] [place] Active Problems: Altered mental status Status post colostomy, follow-up exam ([facility] [place] Assessment Rapid onset Dementia with behavioral disturbances [...] Spinal Fluid culture includes gram stain, CSF [[id number]] Collected: 07/10/24 0939 Specimen: Cerebrospinal Fluid Updated: [...] left ulnar artery Dementia with behavioral disturbance ([facility] [place] Altered mental status Status post colostomy, follow-up exam ([facility] [place] Recommendations/Plan: Continue PT, OT and speech therapy Contact guard assist with gait and transfers Will need 24 hour supervision Fall precautions, status post fall Family education Melatonin to regulate sleep cycle Awaiting on placement Will follow up with you for rehab needs Sonya Astudillo MD Images from the original note were not included. [facility] 07/15/2024 Patient Name: Noé Jeffery : 1965 Problem List: Principal Problem: Dementia with behavioral disturbance ([facility] [place] Active Problems: Altered mental status Status post colostomy, follow-up exam ([facility] [place] Assessment Rapid onset Dementia with behavioral disturbances [...] Spinal Fluid culture includes gram stain, CSF [[id number]] Collected: 07/10/24 0939 Specimen: Cerebrospinal Fluid Updated: 07/15/24 0656 Gram Stain Result WHITE BLOOD CELLS PRESENT NO ORGANISMS SEEN ON CONCENTRATED SMEAR Culture NO GROWTH 5 DAYS Physical Medicine and Rehabilitation Daily Progress Note Today's Date and Time: 07/15/2024, 8:01 AM Subjective/Chief complaint: Dementia with behavioral disturbance ([facility]) Principal Problem: Dementia with behavioral disturbance ([facility]) Active Problems: Altered mental status Status post colostomy, follow-up exam ([facility]) SUBJECTIVE Resting in bed, no [...] No results found for: ALB , PROT @[facility]@ No results found for: CRP No results [...] left ulnar artery Dementia with behavioral disturbance ([facility] [place] Altered mental status Status post colostomy, follow-up exam ([facility] [place] Recommendations/Plan: Continue PT, OT and speech therapy Contact guard assist with gait and transfers Will need 24 hour supervision Fall precautions, status post fall Family education Melatonin to regulate sleep cycle Awaiting on placement Will follow up with you for rehab needs Sonya Astudillo MD Images from the original note were not included. [facility] 2024 Patient Name: Noé Jeffery : 1965 Problem List: Principal Problem: Dementia with behavioral disturbance ([facility]) Active Problems: Altered mental status Status post colostomy, follow-up exam ([facility] [place] Assessment Rapid onset Dementia with behavioral disturbances [...] Spinal Fluid culture includes gram stain, CSF [[id number]] Collected: 07/10/24 0939 Specimen: Cerebrospinal Fluid Updated: 07/14/24 09 Gram Stain Result WHITE BLOOD CELLS PRESENT NO ORGANISMS SEEN ON CONCENTRATED SMEAR Culture NO GROWTH 4 DAYS Physical Medicine and Rehabilitation Daily Progress Note Today's Date and Time: 2024, 8:23 AM Subjective/Chief complaint: Dementia with behavioral disturbance ([facility]) Principal Problem: Dementia with behavioral disturbance ([facility]) Active Problems: Altered mental status Status post colostomy, follow-up exam ([facility]) SUBJECTIVE Resting in bed, no [...] left ulnar artery Dementia with behavioral disturbance ([facility] [place] Altered mental status Status post colostomy, follow-up exam ([facility] [place] Recommendations/Plan: Continue PT, OT and speech therapy Contact guard assist with gait and transfers Will need 24 hour supervision Fall precautions, status post fall Family education Melatonin to regulate sleep cycle Awaiting on placement Will follow up with you for rehab needs Sonya Astudillo MD Images from the original note were not included. [facility] 07/13/2024 Patient Name: Noé Jeffery : 1965 Problem List: Principal Problem: Dementia with behavioral disturbance ([facility] [place] Active Problems: Altered mental status Status post colostomy, follow-up exam ([facility] [place] Assessment Rapid onset Dementia with behavioral disturbances [...] Spinal Fluid culture includes gram stain, CSF [[id number]] Collected: 07/10/24 0939 Specimen: Cerebrospinal Fluid Updated: [...] left ulnar artery Dementia with behavioral disturbance ([facility]) Altered mental status Status post colostomy, follow-up exam ([facility]) Recommendations/Plan: Continue PT, OT and speech therapy Contact guard assist with gait and transfers Will benefit from inpatient rehab, TBI Unit Will need 24 hour supervision Fall precautions, status post fall Family education Melatonin to regulate sleep cycle Will follow up with you for rehab needs Sonya Astudillo MD Images from the original note were not included. [facility] 07/12/2024 Patient Name: Noé Jeffery : 1965 Problem List: Principal Problem: Dementia with behavioral disturbance ([facility]) Active Problems: Altered mental status Status post colostomy, follow-up exam ([facility] [place] Assessment Rapid onset Dementia with behavioral disturbances [...] Spinal Fluid culture includes gram stain, CSF [[id number]] Collected: 07/10/24 0939 Specimen: Cerebrospinal Fluid Updated: 07/12/24 0736 Gram Stain Result WHITE BLOOD CELLS PRESENT NO ORGANISMS SEEN ON CONCENTRATED SMEAR Culture NO GROWTH 2 DAYS Images from the original note were not included. [facility] Neurology General Neurology Consultation Progress Note Consult Neurology Service: [phone] Chief Complaint and Reason for Consultation: Decline [...] with complete remission. He follows up with [facility] Neurology and had underwent a heavy [...] decline, Patient had presented to ED in [place] June 18 after waking up not oriented and delusional. Then June 25 he woke up again not knowing where he is delusional thinking his sister was an intruder so he was brought to [facility] and discharged later that evening. He was seen by social service director referred to a mental health center and per family his mental status had worsened and they felt he was being overmedicated with Benadryl. 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 The impression there was no infectious or metabolic etiology so patient was transferred to [facility] for higher level of care. Interval History: [...] markers confirmed early onset Alzheimer's established in [facility] September 2022 (Dr. Lemuel Guerra) but reportedly functional at home per family, in addition to hyperlipidemia, GERD, T2DM. Patient was transferred found [facility] for higher level of care and workup of sharp decline in cognition since May 2024. Patient had presented multiple times to the ED and admitted [facility] for delusional thinking/hallucinations/agitatio n. Impression: Acute [...] arise. Arnulfo Haley MD PGY2 Neurology [facility] Seen and staffed with: Dr. Nails This patient is being followed by the Neurology Resident service. Contact attending directly during these hours: Tuesday to 7:30-8:30 A.M. to Tuesday 12-1:00 p.m. Primary Neurology service: [phone] Consult neurology service: [phone] Resident Stroke Service: [phone] If the patient belongs to the Stroke [...] any question or concerns. Zach Nails MD. Box Stacker of Neurology [facility] Images from the original note were not included. [facility] 07/11/2024 Patient Name: Noé Jfefery : 1965 Problem List: Principal Problem: Dementia [...] discharge, currently working on disposition. Refused from [address] [place] [address] DVT prophylaxis: Heparin Code Status: Full Plan [...] COMPARISON: July 03, 2024 brain MRI from [facility] Procedure: Multiplanar, multisequence imaging performed through [...] and cranio-cervical junction. Flow voids documented in [place] of [place] and dural venous sinuses. No [...] Spinal Fluid culture includes gram stain, CSF [[id number]] Collected: 07/10/24 0939 Specimen: Cerebrospinal Fluid Updated: 07/11/24 0718 Gram Stain Result WHITE BLOOD CELLS PRESENT NO ORGANISMS SEEN ON CONCENTRATED SMEAR Culture NO GROWTH <24 HRS Images from the original note were not included. [facility] Neurology General Neurology Consultation Progress Note Consult Neurology Service: [phone] Chief Complaint and Reason for Consultation: Decline [...] with complete remission. He follows up with [facility] Neurology and had underwent a heavy [...] decline, Patient had presented to ED in [place] June 18 after waking up not oriented and delusional. Then June 25 he woke up again not knowing where he is delusional thinking his sister was an intruder so he was brought to [facility] and discharged later that evening. He was seen by social service director referred to a mental health center and per family his mental status had worsened and they felt he was being overmedicated with Benadryl. 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 The impression there was no infectious or metabolic etiology so patient was transferred to [facility] for higher level of care. Interval History: [...] markers confirmed early onset Alzheimer's established in [facility] September 2022 (Dr. Lemuel Guerra) but reportedly functional at home per family, in addition to hyperlipidemia, GERD, T2DM. Patient was transferred found [facility] for higher level of care and workup of sharp decline in cognition since May 2024. Patient had presented multiple times to the ED and admitted [facility] for delusional thinking/hallucinations/agitatio n. Impression: Acute [...] follow. Arnulfo Haley MD PGY2 Neurology [facility] Seen and staffed with: Dr. Nails This patient is being followed by the Neurology Resident service. Contact attending directly during these hours: Tuesday to 7:30-8:30 A.M. to Tuesday 12-1:00 p.m. Primary Neurology service: [phone] Consult neurology service: [phone] Resident Stroke Service: [phone] If the patient belongs to the Stroke [...] evaluation and appropriate disposition. Zach Nails MD. Box Stacker of Neurology [facility] Images from the original note were not included. [facility] 07/10/2024 Patient Name: Noé Jeffery : 1965 [...] COMPARISON: July 03, 2024 brain MRI from [facility] Procedure: Multiplanar, multisequence imaging performed through [...] and cranio-cervical junction. Flow voids documented in diom[place] of [place] and dural venous sinuses. No [...] Spinal Fluid culture includes gram stain, CSF [[id number]] Resulted: 07/10/24 1055 Updated: 07/10/24 1148 Images from the original note were not included. [facility] 07/09/2024 Patient Name: Noé Jeffery : 1965 [...] from the original note were not included. [facility] Neurology General Neurology Consultation Progress Note Consult Neurology Service: [phone] Chief Complaint and Reason for Consultation: Decline [...] with complete remission. He follows up with [facility] Neurology and had underwent a heavy [...] decline, Patient had presented to ED in [place] June 18 after waking up not oriented and delusional. Then June 25 he woke up again not knowing where he is delusional thinking his sister was an intruder so he was brought to [facility] and discharged later that evening. He was seen by social service director referred to a mental health center and per family his mental status had worsened and they felt he was being overmedicated with Benadryl. 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 The impression there was no infectious or metabolic etiology so patient was transferred to [facility] for higher level of care. Interval History: [...] markers confirmed early onset Alzheimer's established in [facility] September 2022 (Dr. Lemuel Guerra) but reportedly functional at home per family, in addition to hyperlipidemia, GERD, T2DM. Patient was transferred found [facility] for higher level of care and workup of sharp decline in cognition since May 2024. Patient had presented multiple times to the ED and admitted [facility] for delusional thinking/hallucinations/agitatio n. Impression: Acute [...] follow. Arnulfo Haley MD PGY2 Neurology [facility] Seen and staffed with: Dr. Nails This patient is being followed by the Neurology Resident service. Contact attending directly during these hours: Tuesday to 7:30-8:30 A.M. to Tuesday 12-1:00 p.m. Primary Neurology service: [phone] Consult neurology service: [phone] Resident Stroke Service: [phone] If the patient belongs to the Stroke [...] of violent/anger outburst/paranoid behavior. Zach Nails MD. Box Stacker of Neurology [facility] NUTRITION ADULT INITIAL EVALUATION NUTRITION ASSESSMENT: [...] 11/24/2019 Performed by Skyler Bowen MD at [facility] 3YEARS AGO COLOSTOMY CLOSURE Social/ Cognitive/ Economic: Pt in an agitated state and screaming from room. Unable to see pt as RN reports he has been in a very agitated state at the time of RD visit. Brief Clinical Summary: Pt transferred and direct admitted to [facility] as a transfer from [facility] for neurological evaluation 2/2 aggressive behavior [...] (H) 05/10/2016 Lab Results Component Value Date [id number] 526 07/08/2024 Lab Results Component Value Date [...] Skin (per nursing flow sheets): Skin Color: [place]; Pale (07/08/24 08) Skin Temp: Warm; Dry [...] Type: NPO NPO Except: Except medications 07/08/24 8067 Diet Intakes: Percent Meals Eaten (%): 100 [...] Weight: Unknown as no wt on file. Crawford Body Weight: 61.8 kg Percent Crawford Body Weight: 136 Weight Changes: No wt's on file to assess Body Mass Index: 30.7 kg^m2 BMI Category: Obese (> or = 30.0) Note: Calculations based on previous wt and ht on file from 06/24 07/22 no anthropometrics on file for this admission. Comparative Standards: Estimated Energy Needs: 7176-6350 kcals daily. Method and weight used: 25-32 kcal/kg IBW Estimated Protein Needs: 74-124 grams daily. Method and weight used: 1.2-2g protein/kg IBW Estimated Fluid Needs: 3854-2015 ml daily. Method weight used: 1 ml/kcal Comments: floor needs Malnutrition Status: Malnutrition Present: No NUTRITION DIAGNOSIS: Intake Diagnosis: Predicted suboptimal nutrient intake (NI 5.11.1) related to self monitoring deficit as evidenced by nursing screen reporting pt eating <50% of normal intake x 2 weeks. NUTRITION INTERVENTIONS: Meals and Snacks: Continue per HOSPITAL CLINIC ASSISTANT and medical team recommendations Supplements: Will add [...] from the original note were not included. [facility] 07/08/2024 Patient Name: Noé Jeffery : 1965 [...] from the original note were not included. [facility] Neurology General Neurology Consultation Progress Note Consult Neurology Service: [phone] Chief Complaint and Reason for Consultation: Decline [...] with complete remission. He follows up with [facility] Neurology and had underwent a heavy [...] decline, Patient had presented to ED in [place] June 18 after waking up not oriented and delusional. Then June 25 he woke up again not knowing where he is delusional thinking his sister was an intruder so he was brought to [facility] and discharged later that evening. He was seen by social service director referred to a mental health center and per family his mental status had worsened and they felt he was being overmedicated with Benadryl. 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 The impression there was no infectious or metabolic etiology so patient was transferred to [facility] for higher level of care. Interval History: [...] markers confirmed early onset Alzheimer's established in [facility] September 2022 (Dr. Lemuel Guerra) but reportedly functional at home per family, in addition to hyperlipidemia, GERD, T2DM. Patient was transferred found [facility] for higher level of care and workup of sharp decline in cognition since May 2024. Patient had presented multiple times to the ED and admitted [facility] for delusional thinking/hallucinations/agitatio n. Impression: Acute [...] follow. Cecile Henry MD PGY-3 Neurology Resident [facility] Seen and staffed with: Dr. Nails This patient is being followed by the Neurology Resident service. Contact attending directly during these hours: Tuesday to 7:30-8:30 A.M. to Tuesday 12-1:00 p.m. Primary Neurology service: [phone] Consult neurology service: [phone] Resident Stroke Service: [phone] If the patient belongs to the Stroke [...] of violent/anger outburst/paranoid behavior. Zach Nails MD. Box Stacker of Neurology [facility] Images from the original note were not included. [facility] Neurology General Neurology Consultation Progress Note Consult Neurology Service: [phone] Chief Complaint and Reason for Consultation: Decline [...] with complete remission. He follows up with [facility]rology and had underwent a heavy metal screen, [facility] analysis, MRI 2021 showing severe generalized volume [...] decline, Patient had presented to ED in [place] June 18 after waking up not oriented and delusional. Then June 25 he woke up again not knowing where he is delusional thinking his sister was an intruder so he was brought to [facility] and discharged later that evening. He was seen by social service director referred to a mental health center and per family his mental status had worsened and they felt he was being overmedicated with Benadryl. 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 The impression there was no infectious or metabolic etiology so patient was transferred to [facility] for higher level of care. Interval History: [...] Daily sodium chloride, 3 mL, intravenous, Q12H [facility] Continuous Infusions: PRN Meds:. acetaminophen dextrose dextrose [...] markers confirmed early onset Alzheimer's established in [facility] October 2022 in addition to hyperlipidemia, GERD, dm 2. Patient was transferred found [facility] for higher level of care and workup of sharp decline in cognition since May 2024. Patient had presented multiple times to the ED and admitted [facility] for delusional thinking/hallucinations/agitatio n. Impression: Acute [...] follow. Arnulfo Haley MD PGY2 Neurology [facility] Seen and staffed with: Dr. Nails This patient is being followed by the Neurology Resident service. Contact attending directly during these hours: Tuesday to 7:30-8:30 A.M. to Tuesday 12-1:00 p.m. Primary Neurology service: [phone] Consult neurology service: [phone] Resident Stroke Service: [phone] If the patient belongs to the Stroke [...] type), obtain routine EEG. Zach Nails MD. Box Stacker of Neurology [facility] [employer] Images from the original note were not included. [facility] 07[facility]07[facility]24 Patient Name: Noé Jeffery : 1965 Problem List: Principal Problem: Dementia with behavioral disturbance ([facility]) Active Problems: Altered mental status Assessment [...] last 168 hours. documented in this encounter [employer] 07-21-2024 Plan of care note Problem: Safety [...] at the bedside 7. Instruct patient/ patient clearance representative about use of safety devices 8. Include patient/ patient clearance representative in decisions related to safety Outcome: Progressing Note: Evaluation of progress towards goal: pt remains free from injury Problem: Knowledge Deficit Goal: Patient/patient clearance representative demonstrates understanding of disease process, treatment [...] Score of =/> 25 or indicated by [facility] Assessment Goal: Patient should be free from fall Description: Interventions: 1. Deaver to environment 2. Hourly rounds addressing the [...] non-skid footwear 11. Teach patient and patient clearance representative to maintain environment for safety and [...] (cane, walker) within reach 19. Request patient clearance representative bring adaptive equipment/mobility aids from home or obtain and provide as needed 20. Consult pharmacy regarding effects of med's affecting mobility, cognition, and alternatives 21. Obtain physician order for PT if risk factors associated with mobility are present 22. Obtain physician order for OT as appropriate 23. Utilize diversional activities 24. Educate patient and patient clearance representative how to maintain a safe environment during visitation times (notify nurse prior to leaving bedside) 25. Consider appropriateness of medical or non-medical affairs director 26. Set up voiding schedule as appropriate (every 2 hours) Outcome: Progressing Note: Evaluation of progress towards goal: fall precautions in place and pt remains free from falls [facility] [employer] 07-20-2024 Progress note Formatting of t his note might be different from the original. DISCHARGE PLANNING NOTE Patient's family has appealed his discharge & we have received notification from [facility] that a DC appeal has been called in. The chart, DND form, & IMM have been successfully uploaded by account underwriter to the [employer] and successfully received by [facility]. [facility] will notify the of the patient of the appeal determination. Audio Production Engineer phone called patient's & read the DND notice to her. Paper copy of the DND notice to be delivered to the patient's bedside. Audio Production Engineer informed to anticipate phone call from [employer] re: determination of DC Appeal & encouraged wifeto answer the phone when [employer] calls. expressed verbal understanding of DND and the DC appeal process. - NELLI LGEZ [employer]PUTER BOOKKEEPER CARE NAVIGATION 07/20/24 5:13 PM [facility] 07-20-2024 Consult note Associated Order (s): IP CONSULT TO NEUROSURGERY Images from the original note were not included. [facility] [address] [place] [address], [address] [place] [address] * NEUROSURGERY CONSULT NOTE DATE:07/20/2024 PATIENT'S NAME: [...] 11/24/2019 Performed by Skyler Bowen MD at [facility] COLONOSCOPY [place] 3YEARS AGO COLOSTOMY CLOSURE PUNCTURE LUMBAR N/A 07/10/2024 Performed by Zach Nails MD at [facility] FAMILY HISTORY Family History Problem Relation [...] care per primary team FRAN Burton Neurosurgery [facility] Please contact via ClicktivatedChat first then can utilize Patient touch/VoceraEdge if needed- 07/20/24 3:45 PM To find out which ASHLEE is on for the day please go to Erydel and use log in BioTrove and search for PTH Neurosurgery FRAN Charles 07/20/24 2273 [facility] 07-20-2024 Consult note Associated Order (s): IP CONSULT TO NEUROSURGERY Images from the original note were not included. [facility] [address] [place] [address], [address] [place] [address] * NEUROSURGERY CONSULT NOTE DATE:07/20/2024 PATIENT'S NAME: [...] 11/24/2019 Performed by Skyler Bowen MD at [facility] COLONOSCOPY [place] 3YEARS AGO COLOSTOMY CLOSURE PUNCTURE LUMBAR N/A 07/10/2024 Performed by Zach Nails MD at [facility] FAMILY HISTORY Family History Problem Relation [...] care per primary team FRAN Burton Neurosurgery [facility] Please contact via MWI first then can utilize Patient touch/VoceraEdge if needed- 07/20/24 3:45 PM To find out which ASHLEE is on for the day please go to Erydel and use log in BioTrove and search for PTH Neurosurgery FRAN Charles 07/20/24 1632 Images from the original note were not included. [facility] Neurology General Neurology Consult Note Primary Neurology service: [phone] Patient - Noé Jeffery Age - 59 [facility]. [facility] 1965 [id number] Date of Admission - 07/06/2024 7:28 AM [...] with complete remission. He follows up with [facility] Neu[facility] and had underwent a heavy [...] and symmetric in all four extremities. Coordination Spyviu-cy-pigf, rapid alternating movements and jhkw-yd-jcab normal bilaterally without dysmetria. Gait Deferred. Psychiatric [...] biomarkers confirmed early onset diagnosis established in [facility] September 2022 but reportedly functional at home per family in addition to hyperlipidemia, GERD, dm 2. Patient was transferred from [facility] for higher level of care and [...] Neurology standpoint Khalif Valerio MD PGY-1 Neurology [facility] 07/19/24 1:[address] Sofia This patient is being followed by the Neurology Resident service. Contact attending directly during these hours: Tuesday to 7:30-8:30 A.M. to Tuesday 12-1:00 p.m. Primary Neurology service: [phone] Consult neurology service: [phone] Resident Stroke Service: [phone] If the patient belongs to the Stroke [...] for: EAG Lab Results Component Value Date [id number] 07/08/2024 Neurological work up: CT head CTA head and neck MRI brain 05/07/2022 hippocampal volume loss. White matter changes. 2 D echo Assessment and recommendations Delirium superimposed on baseline cognitive impairment Presyncope likely neurocardiogenic Hypotension Early-onset Alzheimer disease confirmed with bio markers at [facility] Upon examination patient is awake, is [...] Compliant: Principal Problem: Dementia with behavioral disturbance ([facility]) Active Problems: Altered mental status Status post colostomy, follow-up exam ([facility] [place] Reason for Consultation: Rehabilitation Candidacy and Rehab Medical Affairs Director Physicians/Services Consulting Providers Provider Service Specialty Mina [...] reflux disease) High cholesterol Perforated sigmoid colon ([facility]) PSH Past Surgical History: Procedure Laterality Date ARM EXPLORATION WITH REPAIR LACERATED ULNAR ARTERY Left 11/24/2019 Performed by Skyler Bowen MD at [facility] COLONOSCOPY [place] 3YEARS AGO COLOSTOMY CLOSURE Allergies Allergies Allergen [...] mg/dL Cytology Collection Time: 07/10/24 9:[address] [facility] Laboratory Medicine [address] [place] [address] Cytology Consultation Patient Name:NOÉ JEFFERY:1965 (Age: 58)Gender:MTaken:07/10/2024Report ed:07/11/2024 16:49Physician(s):Arnulfo Haley M.D. ([phone])Copy To:Quinton Harrell M.D. Rec. #:[id number]: #[id number] Final Cytologic Diagnosis Cerebrospinal fluid: No malignant cells identified. 07/11/2024 Interpretation performed at [facility], [address] [place] [address], License number: [id number].Electronically Signed Out By Derick Lorenz MD Additional Report(s): Flow Cytometry-Surg/BM/NG Date Reported: # Immunophenotyping antibodies tested: CD3, CD4, CD5, CD7, CD8, CD19, CD20, CD45, Natalia, and Lambda. Immunophenotyping Comment: Immunophenotyping has been used in this diagnostic evaluation. This test was developed and its performance characteristics determined by the [facility] Department. It has not been [...] MD Clinical History Dementia with behavioral disturbance ([facility]) F03.918, acute change in personality Gross Description Received was 2ml of clear colorless fluid unfixed labeled as Jeffery, CSF . Also received is one cytospin slide from Hematology. Source of Specimen Cerebrospinal fluid Non EXPERT MEDICAL WRITER ThinPrep, Cytospin Slide Fee Code(s): 1; 24694 VDRL, Spinal Fluid Collection Time: 07/10/24 9:39 [...] Assessment/Plan Principal Problem: Dementia with behavioral disturbance ([facility] [place] [place]) Active Problems: Altered mental status Status post colostomy, follow-up exam ([facility] [place] [place]) Acute mental status change patient also was [...] PRESENT ILLNESS: The patient is a 58-year-old Mold[place] male treatment at the [facility] for the patient has a substantial history of dyslipidemia, sleep apnea, type 2 diabetes mellitus, recent diagnosed history of early-onset Alzheimer's dementia, an epileptic disorder in remission, as well as a recent admission to [facility] for altered mental status. An MRI [...] discharged to a memory care unit or longterm that is well-versed in the treatment of [...] 11/24/2019 Performed by Skyler Bowen MD at [facility] 3YEARS AGO COLOSTOMY CLOSURE Medications Prior to [...] to a memory care unit or a longterm that is well-versed in management of memory [...] from the original note were not included. [facility] Neurology General Neurology Consult Note Primary Neurology service: [phone] Chief Complaint: HPI: Noé Jeffery is a [...] with complete remission. He follows up with [facility] Neurology and had underwent a heavy [...] decline, Patient had presented to ED in [place] June 18 after waking up not oriented and delusional. Then June 25 he woke up again not knowing where he is delusional thinking his sister was an intruder so he was brought to [facility] and discharged later that evening. He was seen by social service director referred to a mental health center and per family his mental status had worsened and they felt he was being overmedicated with Benadryl. 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 The impression there was no infectious or metabolic etiology so patient was transferred to [facility] for higher level of care. On my evaluation patient was restless fidgeting and did not allow me to speak him or enter the room, he would tell me his family members names what refused to tell me his name asked me to leave the room. I could not do any assessment Lucas test or neurological exam. Per family patient [...] markers confirmed early onset Alzheimer's established in [facility] October 2022 in addition to hyperlipidemia, GERD, dm 2. Patient was transferred found [facility] for higher level of care and workup of sharp decline in cognition since May 2024. Patient had presented multiple times to the ED and admitted [facility] for delusional thinking/hallucinations/agitatio n. On evaluation [...] once reconciled. Khalif Valerio MD PGY-1 Neurology [facility] 07/06/24 9:[address] Sofia This patient is being followed by the Neurology Resident service. Contact attending directly during these hours: Tuesday to 7:30-8:30 A.M. to Tuesday 12-1:00 p.m. Primary Neurology service: [phone] Consult neurology service: [phone] Resident Stroke Service: [phone] If the patient belongs to the Stroke ASHLEE service please contact the Stroke ASHLEE directly. Cosigned by Kelley Sofia MD at 07/06/2024 11:32 PM EST Associated attestation - Kelley Sofia MD - 07/06/2024 11:32 PM EST Kelley Sofia MD Neurology documented in this encounter [facility] 07-20-2024 Hospital Discharge instructions Suzanne Shipley MD - 07/20/2024 3:28 PM EST 07/30 at 12:40 Hospital follow up with Fidelina Fisher CNP [facility] [place] [address] [place] [address] Please follow up with Neurosurgery [...] Hospital follow up with Fidelina Fisher CNP [facility] [place] [address] [place] [address] Pt. should bring the following [...] For NEW patients, MD will not prescribe nursing home pain medication. The following attachments cannot be sent through Care Everywhere.Dementia Discharge Instructions (Iranian)Time to stop driving? (Iranian)Dementia (including Alzheimer disease) (Iranian)documented in this encounter [facility] 07-20-2024 Plan of care note Problem: Safety [...] at the bedside 7. Instruct patient/ patient clearance representative about use of safety devices 8. Include patient/ patient clearance representative in decisions related to safety Outcome: Progressing Note: Evaluation of progress towards goal: Patient remains injury free at this time. Problem: Knowledge Deficit Goal: Patient/patient clearance representative demonstrates understanding of disease process, treatment [...] Score of =/> 25 or indicated by [facility] Assessment Goal: Patient should be free from fall Description: Interventions: 1. Deaver to environment 2. Hourly rounds addressing the [...] non-skid footwear 11. Teach patient and patient clearance representative to maintain environment for safety and [...] (cane, walker) within reach 19. Request patient clearance representative bring adaptive equipment/mobility aids from home or obtain and provide as needed 20. Consult pharmacy regarding effects of med's affecting mobility, cognition, and alternatives 21. Obtain physician order for PT if risk factors associated with mobility are present 22. Obtain physician order for OT as appropriate 23. Utilize diversional activities 24. Educate patient and patient clearance representative how to maintain a safe environment during visitation times (notify nurse prior to leaving bedside) 25. Consider appropriateness of medical or non-medical affairs director 26. Set up voiding schedule as appropriate (every 2 hours) Outcome: Progressing Note: Evaluation of progress towards goal: Patient remains free from falls at this time. [facility] 07-20-2024 Telephone encounter Note Spoke to , Kari. Pt is currently at [facility]. Pt is being denied an admit to rehab facility. I am unable to view notes from that hospital. Suggestion given to [facility] as [facility] does not have a TBI clinic. Family will have to work with staff at [facility]. Verbalized understanding. [facility] 07-20-2024 Miscellaneous Notes Spoke to , Kari. Pt is currently at [facility]. Pt is being denied an admit to rehab facility. I am unable to view notes from that hospital. Suggestion given to [facility] as [facility] does not have a TBI clinic. Family will have to work with staff at [facility]. Verbalized understanding. Spoke with Dr Harmon (sp?) from [facility] regarding patient. Family is requesting transfer to a [facility] TBI center, inpatient. I advised that Dr Guerra cannot assist in this matter. Patient mailbox is full unable to leave message Patient returned your call and can be reached at: Call patient at: on cell [phone] (home) [phone] (cell) documented in this encounter [facility] 07-20-2024 Progress note Formatting of t his note might be different from the original. DISCHARGE PLANNING NOTE 07/30 at 12:40 Hospital follow up with Fidelina Fisher CNP [facility] [place] [address] [place], [place] [id number] [facility] 07-20-2024 Hospital course Narrative Images from the original note were not included. 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 Also contacted [facility], per family request. Spoke with Dr.Mary [...] outpatient workup. I also spoke with Neurosurgery POKER PROP PLAYER Victorina Marcelino, and have made arrangements for [...] diet Follow up: Jae Lopez MD [address] [facility] [address] Schedule an appointment as soon as possible for a visit in 1 week(s) Jessica Johnson MD [address] [facility], [address], [address] [facility] [phone] Schedule an appointment as soon as possible for a visit in 2 week(s) 07/30 at 12:40 Hospital follow up with Fidelina Fisher CNP [facility] [place] [address] [place], [place] [id number] Please follow up with Neurosurgery for colitis [...] 07/20/2024 4:18 PM documented in this encounter [facility] 07-20-2024 Progress note Formatting of t his note might be different from the original. Confirmed with Taylor at [facility] she did receive the updated notes (neuro, PMR, PT/OT) that were faxed and uploaded to [facility]. She is almost finishing writing it up for physician review and will call us with their determination by 10am. 9:31 am Received call from Taylor at [facility] IPR-she reviewed updated notes with medical affairs director and they remain unable to accept after our 3rd request for review. She said he is doing too well functionally, does not need OT/PT services. She said after discussion with medical affairs director their facility would be of no benefit to the patient. This information was communicated to interdisciplinary team via epic chat [facility] Telephone encounter Note Received [...] our network. Referring MD will confirm with skilled nursing case manager that referrals were sent to all 3. If the patient is discharged home or to SNF, we can potentially expedite an appointment with our PMR colleagues/TBI multidisciplinary clinic. I will alert Drs. Aguilar and Earl to the referral. Briana Mcdermott MD [facility] Work Phone: 07-20-2024 Miscellaneous Notes Received [...] our network. Referring MD will confirm with skilled nursing case manager that referrals were sent to all 3. If the patient is discharged home or to SNF, we can potentially expedite an appointment with our PMR colleagues/TBI multidisciplinary clinic. I will alert Drs. Aguilar and Earl to the referral. Briana Mcdermott MD documented in this encounter [facility] 07-20-2024 Progress note Formatting of t his note might be different from the original. DISCHARGE PLANNING NOTE Sent face sheet to [facility] for hospital transfer via secure fax to # [phone] [employer] 07-20-2024 Progress note Formatting of t his note might be different from the original. DISCHARGE PLANNING NOTE Discharge plan- awaiting responses from [facility] if they can accept. Tasked [facility] to send neuro note from yesterday to them again. Tasked [facility] to fax his face sheet to [facility] per physician request since she is calling them about a hospital to hospital transfer per families request. Leadership team aware. - NANCY PARRISH 07/20/24 8:19 AM Discussed patient and d/c planning with leadership team. Everyone in agreement with d/c today since per physician [facility] can not accept as a hospital transfer and [facility] IPR has denied as well. Physician and this account underwriter spoke with patient, and sister that is present re: d/c today and that patient will be going home with outpatient ST and an appointment has been made for a TBI clinic for follow up. Provided IMM to and explained. Leadership aware. - NANCY PARRISH 07/20/24 11:29 AM [facility] 07-20-2024 Progress note Formatting of t his note might be different from the original. DISCHARGE PLANNING NOTE Neuro Note sent to [facility] (P# [phone] ; F# [phone]) in careport and via [facility]. [facility] 07-20-2024 Plan of care note [...] at the bedside 7. Instruct patient/ patient clearance representative about use of safety devices 8. Include patient/ patient clearance representative in decisions related to safety Outcome: Progressing Note: Evaluation of progress towards goal: Pt remains free from injury and significant other at bedside Problem: Knowledge Deficit Goal: Patient/patient clearance representative demonstrates understanding of disease process, treatment [...] be free from fall Description: Interventions: 1. Deaver to environment 2. Hourly rounds addressing the [...] non-skid footwear 11. Teach patient and patient clearance representative to maintain environment for safety and [...] (cane, walker) within reach 19. Request patient clearance representative bring adaptive equipment/mobility aids from home or obtain and provide as needed 20. Consult pharmacy regarding effects of med's affecting mobility, cognition, and alternatives 21. Obtain physician order for PT if risk factors associated with mobility are present 22. Obtain physician order for OT as appropriate 23. Utilize diversional activities 24. Educate patient and patient clearance representative how to maintain a safe environment during visitation times (notify nurse prior to leaving bedside) 25. Consider appropriateness of medical or non-medical affairs director 26. Set up voiding schedule as appropriate (every 2 hours) Outcome: Progressing Note: Evaluation of progress towards goal: pt remains free from falls and fall precautions are in place [facility] 07-19-2024 Progress note Formatting of t his note might be different from the original. DISCHARGE PLANNING NOTE Updates to [facility] (P# [phone] ; F# [phone]) [facility] 07-19-2024 Progress note Formatting [...] therapy per MARCI Rothman Equipment: gait belt Telemetry/Biological Scientist: No Oxygen Used: room air Other: fall [...] Date/Time User Outcome 07/17/24 1439 Yoanna Han-Mahoney, RIG SUPERVISOR/L Progressing Problem: Standing Balance Dates: Start: 07/13/24 Disciplines: OT Goal: Improve balance to normal Dates: Start: 07/13/24 Expected End: 08/13/24 Description: Normal dynamic balance. Disciplines: OT Outcomes Date/Time User Outcome 07/19/24 1445 Yoanna Han-Mahoney, RIG SUPERVISOR/L Progressing 07/17/24 1439 Yoanna Han-Mahoney, KWADWO/L Progressing [...] 1445 Yoanna Han-Mahoney, KWADWO/L Progressing 07/17/24 1439 Yaonna Han-Mahoney, RIG SUPERVISOR/L Progressing Occupational Therapy Care Plan (Resolved) There are no resolved problems. Principal Problem: Dementia with behavioral disturbance ([facility]) Active Problems: Altered mental status Status post colostomy, follow-up exam ([facility] [place] [place] Cosigned by MAYNOR Dillon/Jerome at 07/19/2024 3:13 PM EST Associated attestation - Veronica Gorman OTR/Jerome - 07/19/2024 3:13 PM EST I have reviewed and agree with this note and education documentation for this visit. [facility] 07-19-2024 Progress note Formatting [...] therapy per MARCI Rothman Equipment: gait belt Telemetry/Biological Scientist: Yes Oxygen Used: room air Other: fall [...] Goal: Patient will perform stairs/curb with Modified [place] Dates: Start: 07/13/24 Expected End: 07/27/24 Description: [...] problems. Principal Problem: Dementia with behavioral disturbance ([facility]) Active Problems: Altered mental status Status post colostomy, follow-up exam ([facility] [place] [place] Cosigned by Jose Gorman PT at 07/19/2024 3:14 PM EST Associated attestation - Jose Gorman, PT - 07/19/2024 3:14 PM EST I have reviewed and agree with this note and education documentation for this visit. [facility] 07-19-2024 Plan of care [...] at the bedside 7. Instruct patient/ patient clearance representative about use of safety devices 8. Include patient/ patient clearance representative in decisions related to safety Outcome: Progressing Note: Evaluation of progress towards goal: Patient remains injury free at this time. Problem: Knowledge Deficit Goal: Patient/patient clearance representative demonstrates understanding of disease process, treatment [...] Score of =/> 25 or indicated by [facility] Assessment Goal: Patient should be free from fall Description: Interventions: 1. Deaver to environment 2. Hourly rounds addressing the [...] non-skid footwear 11. Teach patient and patient clearance representative to maintain environment for safety and [...] (cane, walker) within reach 19. Request patient clearance representative bring adaptive equipment/mobility aids from home or obtain and provide as needed 20. Consult pharmacy regarding effects of med's affecting mobility, cognition, and alternatives 21. Obtain physician order for PT if risk factors associated with mobility are present 22. Obtain physician order for OT as appropriate 23. Utilize diversional activities 24. Educate patient and patient clearance representative how to maintain a safe environment during visitation times (notify nurse prior to leaving bedside) 25. Consider appropriateness of medical or non-medical affairs director 26. Set up voiding schedule as appropriate (every 2 hours) Outcome: Progressing Note: Evaluation of progress towards goal: Patient remains free from falls. [facility] 07-19-2024 Consult note Formatting of th is note is different from the original. Images from the original note were not included. [facility] Neurology General Neurology Consult Note Primary Neurology service: [phone] Patient - Noé Jeffery Age - 59 [...] with complete remission. He follows up with [facility] Neurology and had underwent a heavy [...] and symmetric in all four extremities. Coordination Psjcps-td-wwig, rapid alternating movements and dudw-vn-hbxg normal bilaterally without dysmetria. Gait Deferred. Psychiatric [...] biomarkers confirmed early onset diagnosis established in [facility] September 2022 but reportedly functional at home per family in addition to hyperlipidemia, GERD, dm 2. Patient was transferred from [facility] for higher level of care and [...] Neurology standpoint Khalif Valerio MD PGY-1 Neurology [facility] 07/19/24 1:[address] Sofia This patient is being followed by the Neurology Resident service. Contact attending directly during these hours: Tuesday to 7:30-8:30 A.M. to Tuesday 12-1:00 p.m. Primary Neurology service: [phone] Consult neurology service: [phone] Resident Stroke Service: [phone] If the patient belongs to the Stroke [...] for: EAG Lab Results Component Value Date [id number] 07/08/2024 Neurological work up: CT head CTA head and neck MRI brain 05/07/2022 hippocampal volume loss. White matter changes. 2 D echo Assessment and recommendations Delirium superimposed on baseline cognitive impairment Presyncope likely neurocardiogenic Hypotension Early-onset Alzheimer disease confirmed with bio markers at [facility] Upon examination patient is awake, is [...] Note Spoke with Dr Harmon (sp?) from [facility] regarding patient. Family is requesting transfer to a [facility] TBI center, inpatient. I advised that Dr Guerra cannot assist in this matter. [facility] 07-19-2024 Progress note Formatting of t his note might be different from the original. DISCHARGE PLANNING NOTE Updates to [facility] (P# ; F# ) [facility] 07-19-2024 Progress note Formatting of t his note is different from the original. Images from the original note were not included. DISCHARGE PLANNING NOTE Discussed patient today during rounds. Plan-TBI center VS IPR. This account underwriter and floor Mgr spoke with patient's over the phone and his sister in his room re: d/c planning. Updated them that [facility] has denied. Offered to send referral to [facility] to see if they can accept as well as sending blanketed SNF referrals. They are in agreement with sending to [facility] at this time and will let us know today if they would like SNF referrals sent or if the back up plan would be home. Tasked [facility] to send referral to [facility]. Leadership team aware. Services Requested: Services Requested Patient expects to be discharged to:: TBI center VS IPR Discharge Disposition: Acute rehab Patient Goals: Goals: Goals (pt-stated) Evaluation of progress towards goal: TBI center vs IPR - NANCY PARRISH 07/19/24 10:42 AM This account underwriter and sales floor manager and Dr. Shipley spoke with patient, and sister re: d/c planning. They are aware that [facility] is still reviewing referral. Asked if SNF referrals can be sent and they declined stating they would like the physician to see if she can get him transferred to [facility] as a physician to physician transfer. Updated Leadership. If neither of these hospitals can accept then patient to d/c home with since SNF has been declined. - NANCY PARRISH 07/19/24 12:14 PM This account underwriter and floor mgr spoke with family to let them know [facility] has denied patient and that they recommend SNF for him. Tasked [facility] to send neuro note from today to [facility] to see if they can accept him with this updated note. Leadership aware. - NANCY PARRISH 07/19/24 3:21 PM [facility] 07-19-2024 Plan of care note Problem: Safety [...] at the bedside 7. Instruct patient/ patient clearance representative about use of safety devices 8. Include patient/ patient clearance representative in decisions related to safety Outcome: Progressing Note: Evaluation of progress towards goal: Problem: Knowledge Deficit Goal: Patient/patient clearance representative demonstrates understanding of disease process, treatment [...] Progressing Note: Evaluation of progress towards goal: [facility] 07-19-2024 Plan of care note Problem: [...] at the bedside 7. Instruct patient/ patient clearance representative about use of safety devices 8. Include patient/ patient clearance representative in decisions related to safety Outcome: Progressing Note: Evaluation of progress towards goal: Problem: Knowledge Deficit Goal: Patient/patient clearance representative demonstrates understanding of disease process, treatment [...] Progressing Note: Evaluation of progress towards goal: [facility] 07-18-2024 Plan of care note Problem: [...] at the bedside 7. Instruct patient/ patient clearance representative about use of safety devices 8. Include patient/ patient clearance representative in decisions related to safety Outcome: Progressing Note: Evaluation of progress towards goal: patient is injury free at this time. Problem: Knowledge Deficit Goal: Patient/patient clearance representative demonstrates understanding of disease process, treatment [...] Score of =/> 25 or indicated by [facility] Assessment Goal: Patient should be free from fall Description: Interventions: 1. Deaver to environment 2. Hourly rounds addressing the [...] non-skid footwear 11. Teach patient and patient clearance representative to maintain environment for safety and [...] (cane, walker) within reach 19. Request patient clearance representative bring adaptive equipment/mobility aids from home or obtain and provide as needed 20. Consult pharmacy regarding effects of med's affecting mobility, cognition, and alternatives 21. Obtain physician order for PT if risk factors associated with mobility are present 22. Obtain physician order for OT as appropriate 23. Utilize diversional activities 24. Educate patient and patient clearance representative how to maintain a safe environment during visitation times (notify nurse prior to leaving bedside) 25. Consider appropriateness of medical or non-medical affairs director 26. Set up voiding schedule as appropriate (every 2 hours) Outcome: Progressing Note: Evaluation of progress towards goal: Patient is free from falls at this time[facility] Progress note Formatting of t his note might be different from the original. DISCHARGE PLANNING NOTE Referral sent to [facility] (P# [phone] ; F# [phone]) [facility] 07-18-2024 Telephone encounter Note Patient mailbox is full unable to leave message [facility] 07-18-2024 Progress note Formatting of t his note is different from the original. Images from the original note were not included. DISCHARGE PLANNING NOTE Discussed patient today during rounds. Patient's requested updates be sent to [facility]. Tasked [facility] to send. Leadership team aware as well as floor nurse. Barriers- acceptance, auth. Services Requested: Services Requested Patient expects to be discharged to:: home vs snf Patient Goals: Goals: Goals (pt-stated) Evaluation of progress towards goal: TBD-pending PT/OT eval - NANCY PARRISH 07/18/24 10:30 AM Still awaiting response from [facility] if they can accept patient. Leadership team aware. Floor mgr has spoken with family to update them. - NANCY PARRISH 07/18/24 2:50 PM [facility] 07-18-2024 Telephone encounter Note Patient returned your call and can be reached at: Call patient at: on cell [phone] (home) [phone] (cell) [facility] 07-18-2024 Telephone encounter Note -LVMTCB We are unable to assist in this matter. Pt last seen 04/2022 [facility] 07-18-2024 Miscellaneous Notes -LVMTCB We are unable to assist in this matter. Pt last seen 04/2022 Pt fell and is in [facility] and is requesting help with getting pt transferred to a [facility] Please call pts [phone] documented in this encounter [facility] 07-17-2024 Plan of care note Problem: [...] at the bedside 7. Instruct patient/ patient clearance representative about use of safety devices 8. Include patient/ patient clearance representative in decisions related to safety Outcome: [...] be free from fall Description: Interventions: 1. Deaver to environment 2. Hourly rounds addressing the [...] non-skid footwear 11. Teach patient and patient clearance representative to maintain environment for safety and [...] (cane, walker) within reach 19. Request patient clearance representative bring adaptive equipment/mobility aids from home or obtain and provide as needed 20. Consult pharmacy regarding effects of med's affecting mobility, cognition, and alternatives 21. Obtain physician order for PT if risk factors associated with mobility are present 22. Obtain physician order for OT as appropriate 23. Utilize diversional activities 24. Educate patient and patient clearance representative how to maintain a safe environment during visitation times (notify nurse prior to leaving bedside) 25. Consider appropriateness of medical or non-medical affairs director 26. Set up voiding schedule as appropriate (every 2 hours) Outcome: Progressing Note: Evaluation of progress towards goal: Patient will remain free from falls. [facility] 07-17-2024 Progress note Formatting of t his note might be different from the original. DISCHARGE PLANNING NOTE Referral sent to. [facility] (P# [phone] ; F# [phone], ) [facility] 07-17-2024 Progress note Formatting [...] Rothman Equipment: gait belt and chair alarm Telemetry/Biological Scientist: Yes Oxygen Used: room air Other: fall [...] filed on 07/17/24 1443 by Vinod Vaca, MOLDER HELPER Evaluation of progress towards goal: Problem: Stairs/Curb Dates: Start: 07/13/24 Disciplines: PT Goal: Patient will perform stairs/curb with Modified [place] Dates: Start: 07/13/24 Expected End: 07/27/24 Description: [...] problems. Principal Problem: Dementia with behavioral disturbance ([facility]) Active Problems: Altered mental status Status post colostomy, follow-up exam ([facility]) Cosigned by Briana Nuno PT at 07/18/2024 7:18 AM EST Associated attestation - Briana Nuno PT - 07/18/2024 7:18 AM EST I have reviewed and agree with this note and education documentation for this visit. [facility] 07-17-2024 Progress note Formatting of t his [...] Rothman Equipment: gait belt and chair alarm Telemetry/Biological Scientist: Yes Oxygen Used: room air Other: fall [...] Date/Time User Outcome 07/17/24 1439 Yoanna Han-Mahoney, RIG SUPERVISOR/L Progressing Problem: Toilet Transfers Dates: Start: 07/13/24 Disciplines: OT Goal: Patient will perform toilet transfers Independently Dates: Start: 07/13/24 Expected End: 08/13/24 Description: Goal Description: Disciplines: OT Outcomes Date/Time User Outcome 07/17/24 1439 Yoanna Han-Mahoney, RIG SUPERVISOR/L Progressing Problem: Toileting Dates: Start: 07/13/24 Disciplines: OT Goal: Patient will perform toileting Independently Dates: Start: 07/13/24 Expected End: 08/13/24 Description: Goal Description: Disciplines: OT Outcomes Date/Time User Outcome 07/17/24 1439 Yoanna Han-Mahoney, RIG SUPERVISOR/L Progressing Problem: Transfers Dates: Start: 07/13/24 Disciplines: OT Goal: Patient will perform transfers Independently Dates: Start: 07/13/24 Expected End: 08/13/24 Description: Goal Description: Disciplines: OT Outcomes Date/Time User Outcome 07/17/24 1439 EN Hogan Progressing Occupational Therapy Care Plan (Resolved) There are no resolved problems. Principal Problem: Dementia with behavioral disturbance ([facility] [place] [place] Active Problems: Altered mental status Status post colostomy, follow-up exam ([facility] [place] [place]) Cosigned by MAYNOR Navarro/Jerome at 07/17/2024 3:03 PM EST Associated attestation - Lucie Olivarez OTR/Jerome - 07/17/2024 3:03 PM EST I have reviewed and agree with this note and education documentation for this visit. [facility] 07-17-2024 Telephone encounter Note Pt fell and is in [facility] and is requesting help with getting pt transferred to a [facility] Please call pts [phone] [facility] 07-17-2024 Plan of care note Problem: [...] at the bedside 7. Instruct patient/ patient clearance representative about use of safety devices 8. Include patient/ patient clearance representative in decisions related to safety Outcome: Progressing Note: Evaluation of progress towards goal: Patient is injury free at this time. Problem: Knowledge Deficit Goal: Patient/patient clearance representative demonstrates understanding of disease process, treatment [...] Score of =/> 25 or indicated by [facility] Assessment Goal: Patient should be free from fall Description: Interventions: 1. Deaver to environment 2. Hourly rounds addressing the [...] non-skid footwear 11. Teach patient and patient clearance representative to maintain environment for safety and [...] (cane, walker) within reach 19. Request patient clearance representative bring adaptive equipment/mobility aids from home or obtain and provide as needed 20. Consult pharmacy regarding effects of med's affecting mobility, cognition, and alternatives 21. Obtain physician order for PT if risk factors associated with mobility are present 22. Obtain physician order for OT as appropriate 23. Utilize diversional activities 24. Educate patient and patient clearance representative how to maintain a safe environment during visitation times (notify nurse prior to leaving bedside) 25. Consider appropriateness of medical or non-medical affairs director 26. Set up voiding schedule as appropriate (every 2 hours) Outcome: Progressing Note: Evaluation of progress towards goal: Patient is free from falls at this time. [facility] 07-17-2024 Progress note Formatting of t his note might be different from the original. DISCHARGE PLANNING NOTE fax referral to [facility] to [phone] shannan Shah [facility] 07-17-2024 Progress note Formatting of t his note is different from the original. Images from the original note were not included. DISCHARGE PLANNING NOTE Discussed patient today during rounds. Plan- IPR/TBI center. Barriers- acceptance, auth. This account underwriter called both reviewing facilities and left for admissions to see if they can accept. Asked them to call this account underwriter back. Floor nurse and leadership team aware. Services Requested: Services Requested Patient expects to be discharged to:: home vs snf Patient Goals: Goals: Goals (pt-stated) Evaluation of progress towards goal: TBD-pending PT/OT eval - NANCY PARRISH 07/17/24 9:42 AM At this time we do not have an accepting TBI/IPR facility. This account underwriter and sales floor manager attempted to speak with patient's but she is not in the room. Also tried to call her but it went right to and her box is full. - NANCY PARRISH 07/17/24 1:43 PM [facility] called this account underwriter since they don't respond in careport and they can not accept patient. This account underwriter and sales floor manager spoke with patient's and patient's sister that [...] nurse. - NANCY PARRISH 07/17/24 2:45 PM [facility] 07-17-2024 Plan of care note Problem: Safety [...] at the bedside 7. Instruct patient/ patient clearance representative about use of safety devices 8. Include patient/ patient clearance representative in decisions related to safety Outcome: Progressing Note: Evaluation of progress towards goal: Patient remains injury and fall free. Safety precautions in place: call light within reach, bed in lowest position, personal belongings within reach, oriented to environment, and non-slip footwear on. Problem: Knowledge Deficit Goal: Patient/patient clearance representative demonstrates understanding of disease process, treatment [...] Score of =/> 25 or indicated by [facility] Assessment Goal: Patient should be free from fall Description: Interventions: 1. Deaver to environment 2. Hourly rounds addressing the [...] non-skid footwear 11. Teach patient and patient clearance representative to maintain environment for safety and [...] (cane, walker) within reach 19. Request patient clearance representative bring adaptive equipment/mobility aids from home or obtain and provide as needed 20. Consult pharmacy regarding effects of med's affecting mobility, cognition, and alternatives 21. Obtain physician order for PT if risk factors associated with mobility are present 22. Obtain physician order for OT as appropriate 23. Utilize diversional activities 24. Educate patient and patient clearance representative how to maintain a safe environment during visitation times (notify nurse prior to leaving bedside) 25. Consider appropriateness of medical or non-medical affairs director 26. Set up voiding schedule as appropriate (every 2 hours) Outcome: Progressing Note: Evaluation of progress towards goal: Patient remains injury and fall free. Safety precautions in place: call light within reach, bed in lowest position, personal belongings within reach, oriented to environment, and non-slip footwear on. [facility] [employer] 07-16-2024 Progress note Formatting of t his [...] Problem: Auditory Comprehension Dates: Start: 07/12/24 Disciplines: HOSPITAL CLINIC ASSISTANT Goal: LTG: Patient will comprehend communication related to basic medical and social needs and utilize compensatory strategies to maintain safety in a functional living environment Dates: Start: 07/12/24 Expected End: 08/12/24 Disciplines: HOSPITAL CLINIC ASSISTANT Goal: STG: Patient will answer complex yes/no questions with 90% accuracy with minimal cueing Dates: Start: 07/12/24 Expected End: 08/12/24 Disciplines: HOSPITAL CLINIC ASSISTANT Outcomes Date/Time User Outcome 07/16/24 152Lauro Conchita Devi [facility] Goal: STG: Patient will complete 1-3 step commands with 90% accuracy with minimal cueing Dates: Start: 07/12/24 Expected End: 08/12/24 Disciplines: HOSPITAL CLINIC ASSISTANT Outcomes Date/Time User Outcome 07/16/24 Jenn Conchita Devi [facility] ASSIST[facility] Progressing Goal: STG: Patient will complete simple, phrase level auditory comprehension tasks with 90% accuracy with minimal cueing Dates: Start: 07/12/24 Expected End: 08/12/24 Disciplines: HOSPITAL CLINIC ASSISTANT Problem: Cognitive Linguistic Dates: Start: 07/12/24 Disciplines: HOSPITAL CLINIC ASSISTANT Goal: LTG: Patient will display functional cognitive-linguistic skills to demonstrate appropriate communication and safety within daily activities in a functional living environment Dates: Start: 07/12/24 Expected End: 08/12/24 Disciplines: HOSPITAL CLINIC ASSISTANT Goal: STG: Patient will demonstrate sustained attention by maintaining focus during a task for 10 minutes with minimal assistance Dates: Start: 07/12/24 Expected End: 08/12/24 Disciplines: HOSPITAL CLINIC ASSISTANT Outcomes Date/Time User Outcome 07/16/24 152Lauro Conchita Devi [facility] Progressing Goal: STG: Patient will be appropriately oriented to person, place, time and situation with 90% accuracy with minimal cueing Dates: Start: 07/12/24 Expected End: 08/12/24 Disciplines: HOSPITAL CLINIC ASSISTANT Goal: STG: Patient will recall information discussed during therapy session via retelling/answering questions with 90% accuracy with minimal cueing Dates: Start: 07/12/24 Expected End: 08/12/24 Disciplines: HOSPITAL CLINIC ASSISTANT Problem: High Level Language Dates: Start: 07/12/24 Disciplines: HOSPITAL CLINIC ASSISTANT Goal: LTG: Patient will demonstrate use of self-awareness, goal setting, planning, initiation, self-monitoring and problem solving during daily activities to improve safety and awareness in a functional living environment Dates: Start: 07/12/24 Expected End: 08/12/24 Disciplines: HOSPITAL CLINIC ASSISTANT Goal: STG: Patient will sequence 4-6 steps to a task (verbal, written, pictures) with 90% accuracy with minimal cueing Dates: Start: 07/12/24 Expected End: 08/12/24 Disciplines: HOSPITAL CLINIC ASSISTANT Goal: STG: Patient will provide 3 appropriate solutions to problems of daily living with 90% accuracy with minimal cueing Dates: Start: 07/12/24 Expected End: 08/12/24 Disciplines: HOSPITAL CLINIC ASSISTANT Goal: STG: Patient will demonstrate functional problem solving and safety awareness with 90% accuracy in daily living tasks in order to increase safe interactions with environment and decrease assistance from caregivers Dates: Start: 07/12/24 Expected End: 08/12/24 Disciplines: HOSPITAL CLINIC ASSISTANT Problem: Verbal Expression Dates: Start: 07/12/24 Disciplines: HOSPITAL CLINIC ASSISTANT Goal: LTG: Patient will utilize compensatory strategies to communicate wants and needs effectively to different conversational partners, maintain safety and participate socially in a functional living environment Dates: Start: 07/12/24 Expected End: 08/12/24 Disciplines: HOSPITAL CLINIC ASSISTANT Goal: STG: Patient will respond to simple/complex open ended questions during activities of daily living with 90% accuracy with minimal cueing Dates: Start: 07/12/24 Expected End: 08/12/24 Disciplines: HOSPITAL CLINIC ASSISTANT Goal: STG: Patient will maintain topic of conversation to decrease tangential speech with 90% accuracy with minimal cueing Dates: Start: 07/12/24 Expected End: 08/12/24 Disciplines: HOSPITAL CLINIC ASSISTANT Outcomes Date/Time User Outcome 07/16/24 1520 Conchita Devi CCC-HOSPITAL CLINIC ASSISTANT Progressing Speech Therapy Care Plan (Resolved) There are no resolved problems. Principal Problem: Dementia with behavioral disturbance ([facility]) Active Problems: Altered mental status Status post colostomy, follow-up exam ([facility]) [facility] [employer] 07-16-2024 Progress note Formatting of t his note might be different from the original. DISCHARGE PLANNING NOTE Resent referral in [facility] to [facility] P#[phone]; F#[phone] sent via secure fax to [phone] [email or web address] 07-16-2024 Plan of care note Problem: Safety [...] at the bedside 7. Instruct patient/ patient clearance representative about use of safety devices 8. Include patient/ patient clearance representative in decisions related to safety Outcome: Progressing Note: Evaluation of progress towards goal: pain will be adequally controlled to allow for rest and adl's Problem: Knowledge Deficit Goal: Patient/patient clearance representative demonstrates understanding of disease process, treatment [...] Moderate - High Risk Fall Score Description: [place] Fall Score of =/> 25 or indicated by [facility] Assessment Goal: Patient should be free from fall Description: Interventions: 1. Deaver to environment 2. Hourly rounds addressing the [...] non-skid footwear 11. Teach patient and patient clearance representative to maintain environment for safety and [...] (cane, walker) within reach 19. Request patient clearance representative bring adaptive equipment/mobility aids from home or obtain and provide as needed 20. Consult pharmacy regarding effects of med's affecting mobility, cognition, and alternatives 21. Obtain physician order for PT if risk factors associated with mobility are present 22. Obtain physician order for OT as appropriate 23. Utilize diversional activities 24. Educate patient and patient clearance representative how to maintain a safe environment during visitation times (notify nurse prior to leaving bedside) 25. Consider appropriateness of medical or non-medical affairs director 26. Set up voiding schedule as appropriate (every 2 hours) Outcome: Progressing Note: Evaluation of progress towards goal: fall bundle [employer] 07-16-2024 Progress note Formatting of t his note might be different from the original. DISCHARGE PLANNING NOTE Clinical updates sent to Referrals sent to [facility] (P# [phone] ; F# [phone]) and to [facility] and to [facility] [employer] 07-16-2024 Progress note Formatting of t his note might be different from the original. DISCHARGE PLANNING NOTE Referral sent to. [facility] [place] Via secure fax to [phone]. This is theor fax per phone call to facility. P#[phone]. Provider not in [employer]. [facility] [employer] 07-16-2024 Progress note Formatting of t his note might be different from the original. DISCHARGE PLANNING NOTE Discharge plan- TBD waiting to hear from TBI/[facility] who can accept out of the reviewing facilities[facility] called this account underwriter and will call his to discuss. If they are able to accept she would owe private pay for room and board and money is due up front. Updated leadership team and floor nurse. - NANCY PARRISH 07/16/24 8:50 AM Discussed patient today during rounds. Called [facility] and left a VM for admissions to see if they can accept. Awaiting responses from the other facilities to respond. Barriers- acceptance, auth. - NANCY PARRISH 07/16/24 10:58 AM Called admissions at [facility] and [facility] and left VM asking them if they can accept and to call this account underwriter back. Left callback #. - NANCY PARRISH 07/16/24 11:05 AM Still awaiting responses from all reviewing IPR this time. Leadership aware. Called [facility] and spoke with admissions and they will review. Also called [facility] and left another VM. Both in [place] are still reviewing at this time. - ANNCY PARRISH 07/16/24 1:39 PM Spoke with patient and to update them that at this time we are awaiting responses from 3 facilities. Leadership aware. - NACNY PARRISH 07/16/24 3:45 PM [employer] 07-16-2024 Plan of care note Problem: Safety [...] at the bedside 7. Instruct patient/ patient clearance representative about use of safety devices 8. Include patient/ patient clearance representative in decisions related to safety Outcome: Progressing Note: Evaluation of progress towards goal: Patient remains injury and fall free. Safety precautions in place: call light within reach, bed in lowest position, personal belongings within reach, oriented to environment, and non-slip footwear on. Problem: Knowledge Deficit Goal: Patient/patient clearance representative demonstrates understanding of disease process, treatment [...] Collaborate with ancillary departments 14. Include patient/patient clearance representative in decisions related to anxiety Outcome: Progressing Note: Evaluation of progress towards goal: Patient's anxiety appears to be at manageable level. Problem: Moderate - High Risk Fall Score Description: [place] Fall Score of =/> 25 or indicated by [facility] Assessment Goal: Patient should be free from fall Description: Interventions: 1. Deaver to environment 2. Hourly rounds addressing the [...] non-skid footwear 11. Teach patient and patient clearance representative to maintain environment for safety and [...] (cane, walker) within reach 19. Request patient clearance representative bring adaptive equipment/mobility aids from home or obtain and provide as needed 20. Consult pharmacy regarding effects of med's affecting mobility, cognition, and alternatives 21. Obtain physician order for PT if risk factors associated with mobility are present 22. Obtain physician order for OT as appropriate 23. Utilize diversional activities 24. Educate patient and patient clearance representative how to maintain a safe environment during visitation times (notify nurse prior to leaving bedside) 25. Consider appropriateness of medical or non-medical affairs director 26. Set up voiding schedule as appropriate (every 2 hours) Outcome: Progressing Note: Evaluation of progress towards goal: Patient remains injury and fall free. Safety precautions in place: call light within reach, bed in lowest position, personal belongings within reach, oriented to environment, and non-slip footwear on. [facility] 07-15-2024 Plan of care note Problem: [...] at the bedside 7. Instruct patient/ patient clearance representative about use of safety devices 8. Include patient/ patient clearance representative in decisions related to safety Outcome: [...] be free from fall Description: Interventions: 1. Deaver to environment 2. Hourly rounds addressing the [...] non-skid footwear 11. Teach patient and patient clearance representative to maintain environment for safety and [...] (cane, walker) within reach 19. Request patient clearance representative bring adaptive equipment/mobility aids from home or obtain and provide as needed 20. Consult pharmacy regarding effects of med's affecting mobility, cognition, and alternatives 21. Obtain physician order for PT if risk factors associated with mobility are present 22. Obtain physician order for OT as appropriate 23. Utilize diversional activities 24. Educate patient and patient clearance representative how to maintain a safe environment during visitation times (notify nurse prior to leaving bedside) 25. Consider appropriateness of medical or non-medical affairs director 26. Set up voiding schedule as appropriate (every 2 hours) Outcome: Progressing Note: Evaluation of progress towards goal: Pt is free from falls. [facility] 07-15-2024 Plan of care note Problem: [...] at the bedside 7. Instruct patient/ patient clearance representative about use of safety devices 8. Include patient/ patient clearance representative in decisions related to safety Outcome: Progressing Note: Evaluation of progress towards goal: Proper identifiers used with patient care and medication administration. Remains free of injury during shift Problem: Knowledge Deficit Goal: Patient/patient clearance representative demonstrates understanding of disease process, treatment [...] Collaborate with ancillary departments 14. Include patient/patient clearance representative in decisions related to anxiety Outcome: Progressing Note: Evaluation of progress towards goal: Patient verbalizes a tolerable anxiety level and remains free of signs and symptoms of anxiety. Will continue to explain treatment plan and monitor for changes in anxiety levels. Problem: Moderate - High Risk Fall Score Description: [place] Fall Score of =/> 25 or indicated by [facility] Assessment Goal: Patient should be free from fall Description: Interventions: 1. Deaver to environment 2. Hourly rounds addressing the [...] non-skid footwear 11. Teach patient and patient clearance representative to maintain environment for safety and [...] (cane, walker) within reach 19. Request patient clearance representative bring adaptive equipment/mobility aids from home or obtain and provide as needed 20. Consult pharmacy regarding effects of med's affecting mobility, cognition, and alternatives 21. Obtain physician order for PT if risk factors associated with mobility are present 22. Obtain physician order for OT as appropriate 23. Utilize diversional activities 24. Educate patient and patient clearance representative how to maintain a safe environment during visitation times (notify nurse prior to leaving bedside) 25. Consider appropriateness of medical or non-medical affairs director 26. Set up voiding schedule as appropriate (every 2 hours) Outcome: Progressing Note: Evaluation of progress towards goal: Call light within reach. Remains free of fall or injury. Environment free of clutter. [facility] [employer] 2024 Plan of care note Problem: Safety [...] at the bedside 7. Instruct patient/ patient clearance representative about use of safety devices 8. Include patient/ patient clearance representative in decisions related to safety Outcome: Progressing Note: Evaluation of progress towards goal: pain will be controlled to allow for rest and adl's Problem: Knowledge Deficit Goal: Patient/patient clearance representative demonstrates understanding of disease process, treatment [...] Collaborate with ancillary departments 14. Include patient/patient clearance representative in decisions related to anxiety Outcome: Progressing Note: Evaluation of progress towards goal: listen and reassuring Problem: Moderate - High Risk Fall Score Description: [place] Fall Score of =/> 25 or indicated by [facility] Assessment Goal: Patient should be free from fall Description: Interventions: 1. Deaver to environment 2. Hourly rounds addressing the [...] non-skid footwear 11. Teach patient and patient clearance representative to maintain environment for safety and [...] (cane, walker) within reach 19. Request patient clearance representative bring adaptive equipment/mobility aids from home or obtain and provide as needed 20. Consult pharmacy regarding effects of med's affecting mobility, cognition, and alternatives 21. Obtain physician order for PT if risk factors associated with mobility are present 22. Obtain physician order for OT as appropriate 23. Utilize diversional activities 24. Educate patient and patient clearance representative how to maintain a safe environment during visitation times (notify nurse prior to leaving bedside) 25. Consider appropriateness of medical or non-medical affairs director 26. Set up voiding schedule as appropriate (every 2 hours) Outcome: Progressing Note: Evaluation of progress towards goal: fallbundle [facility] [employer] 2024 Progress note Formatting of t his note might be different from the original. DISCHARGE PLANNING NOTE Referrals sent to [facility] (P# [phone] ; F# [phone]) and to [facility] and to [facility] and [facility] p#: [phone] f#: [phone] [facility] [employer] 2024 Progress note Formatting of t his note might be different from the original. DISCHARGE PLANNING NOTE Follow-up Discharge Planning Progress Note Per RN during discharge transition rounds, barriers to discharge are: Accepting acute inpatient rehabilitation center. Discharge Plan: Audio Production Engineer followed up with patient, spouse and patient sister at bedside. Updated, Rehabilitation [facility], not accepting, not in network with [...] Discussed lower levels of care such as Shelter Facility and Home care. Patient spouse and sister verbalized understanding. Choices received. [facility] tasked to send referrals. Attempted to contact Jaciel Venegas, admission office closed on weekend. Care Navigation will continue to follow for any discharge needs. - Shweta Delgado RN 07/14/24 1:22 PM [employer] 07-13-2024 Plan of care note Problem: Safety [...] at the bedside 7. Instruct patient/ patient clearance representative about use of safety devices 8. Include patient/ patient clearance representative in decisions related to safety Outcome: Progressing Note: Evaluation of progress towards goal: Proper identifiers used with patient care and medication administration. Remains free of injury during shift Problem: Knowledge Deficit Goal: Patient/patient clearance representative demonstrates understanding of disease process, treatment [...] Collaborate with ancillary departments 14. Include patient/patient clearance representative in decisions related to anxiety Outcome: Progressing Note: Evaluation of progress towards goal: Patient remains free of signs and symptoms of anxiety. Will continue to explain treatment plan and monitor for changes in anxiety levels. Problem: Moderate - High Risk Fall Score Description: [place] Fall Score of =/> 25 or indicated by [facility] Assessment Goal: Patient should be free from fall Description: Interventions: 1. Deaver to environment 2. Hourly rounds addressing the [...] non-skid footwear 11. Teach patient and patient clearance representative to maintain environment for safety and [...] (cane, walker) within reach 19. Request patient clearance representative bring adaptive equipment/mobility aids from home or obtain and provide as needed 20. Consult pharmacy regarding effects of med's affecting mobility, cognition, and alternatives 21. Obtain physician order for PT if risk factors associated with mobility are present 22. Obtain physician order for OT as appropriate 23. Utilize diversional activities 24. Educate patient and patient clearance representative how to maintain a safe environment during visitation times (notify nurse prior to leaving bedside) 25. Consider appropriateness of medical or non-medical affairs director 26. Set up voiding schedule as appropriate (every 2 hours) Outcome: Progressing Note: Evaluation of progress towards goal: Call light within reach. Remains free of fall or injury. Environment free of clutter. Problem: Safety - Medical Restraint Goal: Remains free of injury from restraints (Restraint for Interference with Material Stress Tester) Description: INTERVENTIONS: 1. Determine that other, less [...] Free from restraint(s) (Restraint for Interference with Material Stress Tester) Description: INTERVENTIONS: 1. ONCE/SHIFT or MINIMUM Q12H: [...] safety; individualizes the safety outcome Outcome: Completed [facility] 07-13-2024 Progress note Formatting [...] some TBI facilities at [facility] and in [place] but at this time they are angry that [facility] did not accept patient. Audio Production Engineer will request SW follow up with them in the morning to obtain choices to continue developing a transition of care plan. [facility] 07-13-2024 Progress note Formatting of t his note might be different from the original. DISCHARGE PLANNING NOTE Referral sent to [facility] P#[phone]; F#[phone]); [facility] P# [phone] [calling report];/[facility] (P# [calling report]; F# ) [facility] 07-13-2024 Progress note Formatting of t his note might be different from the original. DISCHARGE PLANNING NOTE Per RN during discharge transition rounds, barriers to discharge are: Telesitter, PMR re-eval, Seroquel dose adjustment. Discharge Plan: [facility] for TBI rehab. PT/OT recommended [facility]. CN met with and sister Ewa. wants a referral sent [facility]. CN discussed discharge and making referrals to other TBI/ IPR rehabs in the state, and sister stated they are putting all their zak in [facility] being able to accept the patient. Briquette Operator will continue to follow for any discharge needs. - Lesia Caba RN 07/13/24 12:18 PM Addendum: [facility] patients [employer] insurance. gave CN two more choices : [facility] IPR and [facility] rehab. [facility] tasked to send referrals. and sister are calling insurance to ask about a one time contract to [facility]. Ethel , [facility] rep, stopped in to talk to and sister. - Lesia Caba RN 07/13/24 2:10 PM Addendum: Patient's and sister asked CN to listen and talk to insurance checker regarding a one time approval for the [facility]: [facility]. Soccer Referee Xiomy with [employer] stated attending or managing physician needs to document patient's health status and progression, information on why the patient needs to go this specific facility for rehab, include diagnosis codes and services codes. Fax: Prior Auth Request to [phone] attn: Prior Auth Request at [employer]. CN sent pic chat to Dr. Nichol [...] - Lesia Caba RN 07/13/24 3:51 PM [facility] Progress note Formatting of t his note might be different from the original. DISCHARGE PLANNING NOTE [facility] to [facility] (P# ; F# ) [facility]-13-[facility] Progress note Formatting of [...] 11/24/2019 Performed by Skyler Bowen MD at [facility] [place] 3YEARS AGO COLOSTOMY CLOSURE Therapy Plan Need [...] early mobility guidelines. Equipment: gait belt, telemetry Telemetry/Biological Scientist: Yes Oxygen Used: room air Other: fall [...] chair with call light in reach and RNNelea aware. in room with patient.) Eating Assistance: [...] and pants. Patient was able to static oil prospecting observer front of toilet with contact guard. Patient was unable to void due to trouble with processing, safety and judgement. Home Management - IADL Other: patient has trouble executing tasks. patient was able to ambulate into bathroom with contact guard. patient required min assist to doff underware and pants. Patient was able to static oil prospecting observer front of toilet with contact guard. Patient [...] problems. Principal Problem: Dementia with behavioral disturbance ([facility]) Active Problems: Altered mental status Status post colostomy, follow-up exam ([facility]) [facility] 07-13-2024 Progress note Formatting of t [...] from admission 07/06 as a transfer from [facility] for neurological work up. Patient diagnosed with early onset dementia 2022, per spouse report [facility] [place] [facility] and med changes cognitive status had improved and stabilized prior to fall in May 2024. 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 Pt discharged to inpatient treatment facility and returned to [facility] for scheduled MRI. 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 Principal Problem: Dementia with behavioral disturbance ([facility]) Active Problems: Altered mental status Status post colostomy, follow-up exam ([facility]) [facility] 07-12-2024 Plan of care note Problem: [...] at the bedside 7. Instruct patient/ patient clearance representative about use of safety devices 8. Include patient/ patient clearance representative in decisions related to safety Outcome: Progressing Note: Evaluation of progress towards goal: Patient remains injury and fall free. Safety precautions in place: call light within reach, bed in lowest position, personal belongings within reach, oriented to environment, and non-slip footwear on. Problem: Knowledge Deficit Goal: Patient/patient clearance representative demonstrates understanding of disease process, treatment [...] Collaborate with ancillary departments 14. Include patient/patient clearance representative in decisions related to anxiety Outcome: Progressing Note: Evaluation of progress towards goal: Patient's has at bedside to help with spells of anxiety. Problem: Moderate - High Risk Fall Score Description: Gallegos Fall Score of =/> 25 or indicated by [facility] Assessment Goal: Patient should be free from fall Description: Interventions: 1. Deaver to environment 2. Hourly rounds addressing the [...] non-skid footwear 11. Teach patient and patient clearance representative to maintain environment for safety and [...] (cane, walker) within reach 19. Request patient clearance representative bring adaptive equipment/mobility aids from home or obtain and provide as needed 20. Consult pharmacy regarding effects of med's affecting mobility, cognition, and alternatives 21. Obtain physician order for PT if risk factors associated with mobility are present 22. Obtain physician order for OT as appropriate 23. Utilize diversional activities 24. Educate patient and patient clearance representative how to maintain a safe environment during visitation times (notify nurse prior to leaving bedside) 25. Consider appropriateness of medical or non-medical affairs director 26. Set up voiding schedule as appropriate (every 2 hours) Outcome: Progressing Note: Evaluation of progress towards goal: Patient remains injury and fall free. Safety precautions in place: call light within reach, bed in lowest position, personal belongings within reach, oriented to environment, and non-slip footwear on. Problem: Safety - Medical Restraint Goal: Remains free of injury from restraints (Restraint for Interference with Material Stress Tester) Description: INTERVENTIONS: 1. Determine that other, less [...] Free from restraint(s) (Restraint for Interference with Material Stress Tester) Description: INTERVENTIONS: 1. ONCE/SHIFT or MINIMUM Q12H: [...] nutrition and hydration, hygiene, ROM, elimination needs [facility] 07-12-2024 Progress note Formatting of t his note might be different from the original. DISCHARGE PLANNING NOTE Per RN during discharge transition rounds, barriers to discharge are: PMR consult today, 2 point restraints, telesitter Discharge Plan: TBD. PMR is requesting PT/OT notes. Will wait for therapy input. not available this afternoon. CN escalated this case to CN leadership. [facility] Operator will continue to follow for any discharge needs. - Lesia Caba RN 07/12/24 3:24 PM [facility] 07-12-2024 Plan of care note Problem: [...] at the bedside 7. Instruct patient/ patient clearance representative about use of safety devices 8. Include patient/ patient clearance representative in decisions related to safety Outcome: Progressing Note: Evaluation of progress towards goal: Patient remains injury free at present time. Safe environment provided and maintained. Medications administered using 5 rights. Problem: Knowledge Deficit Goal: Patient/patient clearance representative demonstrates understanding of disease process, treatment [...] Collaborate with ancillary departments 14. Include patient/patient clearance representative in decisions related to anxiety Outcome: Progressing Note: Evaluation of progress towards goal: Patient has family at bedside assisting with anxiety. Problem: Safety - Medical Restraint Goal: Remains free of injury from restraints (Restraint for Interference with Material Stress Tester) Description: INTERVENTIONS: 1. Determine that other, less [...] Free from restraint(s) (Restraint for Interference with Material Stress Tester) Description: INTERVENTIONS: 1. ONCE/SHIFT or MINIMUM Q12H: [...] assess q2 restraints, qshift assessed for necessity. [facility] 07-12-2024 Progress note Formatting of t [...] continue to follow along. Prognosis Services: Skilled HOSPITAL CLINIC ASSISTANT services to address the above deficits Prognosis/Potential: [...] Plan Speech Therapy Care Plan (Active) Template: [facility] Speech Problem: Auditory Comprehension Dates: Start: 07/12/24 Disciplines: HOSPITAL CLINIC ASSISTANT Goal: LTG: Patient will comprehend communication related to basic medical and social needs and utilize compensatory strategies to maintain safety in a functional living environment Dates: Start: 07/12/24 Expected End: 08/12/24 Disciplines: HOSPITAL CLINIC ASSISTANT Goal: STG: Patient will answer complex yes/no questions with 90% accuracy with minimal cueing Dates: Start: 07/12/24 Expected End: 08/12/24 Disciplines: HOSPITAL CLINIC ASSISTANT Goal: STG: Patient will complete 1-3 step commands with 90% accuracy with minimal cueing Dates: Start: 07/12/24 Expected End: 08/12/24 Disciplines: HOSPITAL CLINIC ASSISTANT Goal: STG: Patient will complete simple, phrase level auditory comprehension tasks with 90% accuracy with minimal cueing Dates: Start: 07/12/24 Expected End: 08/12/24 Disciplines: HOSPITAL CLINIC ASSISTANT Problem: Cognitive Linguistic Dates: Start: 07/12/24 Disciplines: HOSPITAL CLINIC ASSISTANT Goal: LTG: Patient will display functional cognitive-linguistic skills to demonstrate appropriate communication and safety within daily activities in a functional living environment Dates: Start: 07/12/24 Expected End: 08/12/24 Disciplines: HOSPITAL CLINIC ASSISTANT Goal: STG: Patient will demonstrate sustained attention by maintaining focus during a task for 10 minutes with minimal assistance Dates: Start: 07/12/24 Expected End: 08/12/24 Disciplines: HOSPITAL CLINIC ASSISTANT Goal: STG: Patient will be appropriately oriented to person, place, time and situation with 90% accuracy with minimal cueing Dates: Start: 07/12/24 Expected End: 08/12/24 Disciplines: HOSPITAL CLINIC ASSISTANT Goal: STG: Patient will recall information discussed during therapy session via retelling/answering questions with 90% accuracy with minimal cueing Dates: Start: 07/12/24 Expected End: 08/12/24 Disciplines: HOSPITAL CLINIC ASSISTANT Problem: High Level Language Dates: Start: 07/12/24 Disciplines: HOSPITAL CLINIC ASSISTANT Goal: LTG: Patient will demonstrate use of self-awareness, goal setting, planning, initiation, self-monitoring and problem solving during daily activities to improve safety and awareness in a functional living environment Dates: Start: 07/12/24 Expected End: 08/12/24 Disciplines: HOSPITAL CLINIC ASSISTANT Goal: STG: Patient will sequence 4-6 steps to a task (verbal, written, pictures) with 90% accuracy with minimal cueing Dates: Start: 07/12/24 Expected End: 08/12/24 Disciplines: HOSPITAL CLINIC ASSISTANT Goal: STG: Patient will provide 3 appropriate solutions to problems of daily living with 90% accuracy with minimal cueing Dates: Start: 07/12/24 Expected End: 08/12/24 Disciplines: HOSPITAL CLINIC ASSISTANT Goal: STG: Patient will demonstrate functional problem solving and safety awareness with 90% accuracy in daily living tasks in order to increase safe interactions with environment and decrease assistance from caregivers Dates: Start: 07/12/24 Expected End: 08/12/24 Disciplines: HOSPITAL CLINIC ASSISTANT Problem: Verbal Expression Dates: Start: 07/12/24 Disciplines: HOSPITAL CLINIC ASSISTANT Goal: LTG: Patient will utilize compensatory strategies to communicate wants and needs effectively to different conversational partners, maintain safety and participate socially in a functional living environment Dates: Start: 07/12/24 Expected End: 08/12/24 Disciplines: HOSPITAL CLINIC ASSISTANT Goal: STG: Patient will respond to simple/complex open ended questions during activities of daily living with 90% accuracy with minimal cueing Dates: Start: 07/12/24 Expected End: 08/12/24 Disciplines: HOSPITAL CLINIC ASSISTANT Goal: STG: Patient will maintain topic of conversation to decrease tangential speech with 90% accuracy with minimal cueing Dates: Start: 07/12/24 Expected End: 08/12/24 Disciplines: HOSPITAL CLINIC ASSISTANT Speech Therapy Care Plan (Resolved) There are no resolved problems. Principal Problem: Dementia with behavioral disturbance ([facility]) Active Problems: Altered mental status Status post colostomy, follow-up exam ([facility]) [facility] 07-12-2024 Miscellaneous Notes Patient's sister, Ewa (not on HIPAA), called in asking to speak with Dr Price regarding patient's admission at [facility]. Patient had a tele consult with Dr Price on 07/03/24. Ewa would like to discuss some concerns that she has with Dr Price and possibly set up a hospital follow up. She is asking for a call back to further discuss [phone] CALLED AND SPOKE TO EWA TO LET HER KNOW THAT NOTHING CAN BE DISCUSSED WITH HER DUE TO HER NOT BEING ON PATIENTS HIPAA. EWA UNDERSTOOD Patient's spouse [phone] stated that they would like a call back to discuss [facility] stay. Called and spoke to patients and told her Dr Price seen Noé on a consultation on 07/03/24 and is no longer under his care. Dr Price consulted because he was personnel associate and that the patient is still in [...] her insurance company. documented in this encounter [employer] 07-12-2024 Telephone encounter Note Patient's sister, Ewa (not on HIPAA), called in asking to speak with Dr Price regarding patient's admission at [facility]. Patient had a tele consult with Dr Price on 07/03/24. Ewa would like to discuss some concerns that she has with Dr Price and possibly set up a hospital follow up. She is asking for a call back to further discuss [phone] [employer] 07-12-2024 Telephone encounter Note CALLED AND SPOKE TO EWA TO LET HER KNOW THAT NOTHING CAN BE DISCUSSED WITH HER DUE TO HER NOT BEING ON PATIENTS HIPAA. EWA UNDERSTOOD [employer] 07-12-2024 Telephone encounter Note Patient's spouse [phone] stated that they would like a call back to discuss [facility] stay. [employer] 07-12-2024 Telephone encounter Note Called and spoke to patients and told her Dr Price seen Noé on a consultation on 07/03/24 and is no longer under his care. Dr Price consulted because he was personnel associate and that the patient is still in [...] the care team and her insurance company. [facility] 07-12-2024 Consult note Associated Order (s): IP CONSULT TO PHYSICAL MEDICINE REHAB Images from the original note were not included. PHYSICAL MEDICINE AND REHABILITATION CONSULT Date of Admission: 07/06/2024 7:28 AM Referring Physician: Nichol Heath MD PCP: JAE LOPEZ MD Chief Compliant: Principal Problem: Dementia with behavioral disturbance ([facility]) Active Problems: Altered mental status Status post colostomy, follow-up exam ([facility] [place] Reason for Consultation: Rehabilitation Candidacy and Rehab Medical Affairs Director Physicians/Services Consulting Providers Provider Service Specialty Mina [...] reflux disease) High cholesterol Perforated sigmoid colon ([facility]) [facility] Past Surgical History: Procedure Laterality Date ARM EXPLORATION WITH REPAIR LACERATED ULNAR ARTERY Left 11/24/2019 Performed by Skyler Bowen MD at [facility] [place] 3YEARS AGO COLOSTOMY CLOSURE Allergies Allergies Allergen [...] mg/dL Cytology Collection Time: 07/10/24 9:[address] [facility] [address] [place] [address] Cytology Consultation Patient Name:NOÉ JEFFERY:1965 (Age: 58)Gender:MTaken:07/10/2024Report ed:07/11/2024 16:49Physician(s):Arnulfo Haley M.D. ([phone])Copy To:Quinton Harrell M.D. Rec. #:[id number]: #[id number] Final Cytologic Diagnosis Cerebrospinal fluid: No malignant cells identified. gr/07/11/2024 Interpretation performed at [facility], [address] [place] [address], License number: [id number].Electronically Signed Out By Derick Lorenz MD Additional Report(s): Flow Cytometry-Surg/BM/NG Date Reported: # Immunophenotyping antibodies tested: CD3, CD4, CD5, CD7, CD8, CD19, CD20, CD45, Natalia, and Lambda. Immunophenotyping Comment: Immunophenotyping has been used in this diagnostic evaluation. This test was developed and its performance characteristics determined by the [facility] Department. It has not been [...] MD Clinical History Dementia with behavioral disturbance ([facility]) F03.918, acute change in personality Gross Description Received was 2ml of clear colorless fluid unfixed labeled as Jeffery, CSF . Also received is one cytospin slide from Hematology. Source of Specimen Cerebrospinal fluid Non [employer] MEDICAL WRITER ThinPrep, Cytospin Slide Fee Code(s): 1; 96484 VDRL, Spinal Fluid Collection Time: 07/10/24 9:39 [...] Assessment/Plan Principal Problem: Dementia with behavioral disturbance ([facility] [place] [place]) Active Problems: Altered mental status Status post colostomy, follow-up exam ([facility] [place] [place]) Acute mental status change patient also was [...] you for the referral. Nito Mirza MD [email or web address] Work Phone: 07-12-2024 Plan of care note Problem: Safety - Medical Restraint Goal: Remains free of injury from restraints (Restraint for Interference with Material Stress Tester) Description: INTERVENTIONS: 1. Determine that other, less [...] Free from restraint(s) (Restraint for Interference with Material Stress Tester) Description: INTERVENTIONS: 1. ONCE/SHIFT or MINIMUM Q12H: [...] nutrition and hydration, hygiene, ROM, elimination needs [email or web address] 07-12-2024 Progress note Formatting of t his note might be different from the original. BEHAVIORAL RESTRAINTS PROVIDER ONE HOUR [id number] EVALUATION NOTE Noé Jeffery was evaluated on [...] and others. Jackson Peterson PA-C 07/12/24 0058 [email or web address] Work Phone: 07-11-2024 Plan of care note [...] at the bedside 7. Instruct patient/ patient clearance representative about use of safety devices 8. Include patient/ patient clearance representative in decisions related to safety Outcome: Progressing Note: Evaluation of progress towards goal: Patient remains injury and fall free. Safety precautions in place: call light within reach, bed in lowest position, personal belongings within reach, oriented to environment, and non-slip footwear on. Problem: Knowledge Deficit Goal: Patient/patient clearance representative demonstrates understanding of disease process, treatment [...] Collaborate with ancillary departments 14. Include patient/patient clearance representative in decisions related to anxiety Outcome: Progressing Note: Evaluation of progress towards goal: Patient has at bedside aiding in assisting with anxiety. Problem: Moderate - High Risk Fall Score Description: Gallegos Fall Score of =/> 25 or indicated by [facility] Assessment Goal: Patient should be free from fall Description: Interventions: 1. Deaver to environment 2. Hourly rounds addressing the [...] non-skid footwear 11. Teach patient and patient clearance representative to maintain environment for safety and [...] (cane, walker) within reach 19. Request patient clearance representative bring adaptive equipment/mobility aids from home or obtain and provide as needed 20. Consult pharmacy regarding effects of med's affecting mobility, cognition, and alternatives 21. Obtain physician order for PT if risk factors associated with mobility are present 22. Obtain physician order for OT as appropriate 23. Utilize diversional activities 24. Educate patient and patient clearance representative how to maintain a safe environment during visitation times (notify nurse prior to leaving bedside) 25. Consider appropriateness of medical or non-medical affairs director 26. Set up voiding schedule as appropriate (every 2 hours) Outcome: Progressing Note: Evaluation of progress towards goal: Patient remains injury and fall free. Safety precautions in place: call light within reach, bed in lowest position, personal belongings within reach, oriented to environment, and non-slip footwear on. [facility] [employer] 07-11-2024 Consult note Associated Order (s): IP CONSULT TO PSYCHIATRY PSYCHIATRIC EVALUATION No contraindications for seclusion No contraindications for restraint CHIEF COMPLAINT: Dementia with behavioral disturbance (CMS-HCC) Noé Jeffery is a 58 y.o. male who presents with Dementia with behavioral disturbance (CMS-HCC) .he is HISTORY OF PRESENT ILLNESS: The patient is a 58-year-old [place] male treatment at the [facility] for the patient has a substantial history of dyslipidemia, sleep apnea, type 2 diabetes mellitus, recent diagnosed history of early-onset Alzheimer's dementia, an epileptic disorder in remission, as well as a recent admission to [facility] for altered mental status. An MRI [...] discharged to a memory care unit or longterm that is well-versed in the treatment of [...] 11/24/2019 Performed by Skyler Bowen MD at [facility] [place] 3YEARS AGO COLOSTOMY CLOSURE Medications Prior to [...] to a memory care unit or a longterm that is well-versed in management of memory [...] diversion. Mina Franks MD 07/11/2024 1:11 PM [employer] 07-11-2024 Progress note Formatting of t his note might be different from the original. DISCHARGE PLANNING NOTE Per RN during discharge transition rounds, barriers to discharge are: re-consulting psych today, telesitter and soft restraints, MRI and LP completed yesterday, patient behaviors are worse at night, unpredictable and confused. Discharge Plan: [facility] was sent a referral and they have declined. Waiting input from psych. [employer]quette Operator will continue to follow for any discharge needs. - Lesia Caba RN 07/11/24 12:06 PM Late entery: CN met with patient, Kari, and sister Ewa on Tuesday afternoon. and sister want the patient to go to a Traumatic Brain Injury rehab unit. CN began researching TBI Rehab units in the area, reported back to the and sister after finding TBI rehab units in [facility]. Sister asked for me to look in [facility]. and sister do not want any referrals send until they are able to meet with the neurologist again, sister wants to look into the TBI units in the [facility] herself before any referrals are sent. - Lesia Caba RN 07/12/24 8:11 AM [employer] 07-11-2024 Progress note Formatting of t his note might be different from the original. Referral sent to [facility] to assess for admission to that center's inpatient psychiatric unit. After a clinical review and screening was completed [facility] assessed patient as inappropriate for treatment at that facility. Will alert care team. - NANCY Martines 07/11/24 10:33 AM [facility] 07-11-2024 Progress note Formatting of t his note might be different from the original. DISCHARGE PLANNING NOTE Updates to [facility] [phone] [facility] 07-11-2024 Plan of care [...] at the bedside 7. Instruct patient/ patient clearance representative about use of safety devices 8. Include patient/ patient clearance representative in decisions related to safety Outcome: Progressing Note: Evaluation of progress towards goal: Patient remains injury free at present time. Safe environment provided and maintained. Medications administered using 5 rights. Problem: Knowledge Deficit Goal: Patient/patient clearance representative demonstrates understanding of disease process, treatment [...] Collaborate with ancillary departments 14. Include patient/patient clearance representative in decisions related to anxiety Outcome: Progressing Note: Evaluation of progress towards goal: Patient has at bedside assisting with anxiety. Problem: Moderate - High Risk Fall Score Description: Gallegos Fall Score of =/> 25 or indicated by [facility] Assessment Goal: Patient should be free from fall Description: Interventions: 1. Deaver to environment 2. Hourly rounds addressing the [...] non-skid footwear 11. Teach patient and patient clearance representative to maintain environment for safety and [...] (cane, walker) within reach 19. Request patient clearance representative bring adaptive equipment/mobility aids from home or obtain and provide as needed 20. Consult pharmacy regarding effects of med's affecting mobility, cognition, and alternatives 21. Obtain physician order for PT if risk factors associated with mobility are present 22. Obtain physician order for OT as appropriate 23. Utilize diversional activities 24. Educate patient and patient clearance representative how to maintain a safe environment during visitation times (notify nurse prior to leaving bedside) 25. Consider appropriateness of medical or non-medical affairs director 26. Set up voiding schedule as appropriate (every 2 hours) Outcome: Progressing Note: Evaluation of progress towards goal: Patient currently free from falls, up standby. [facility] 07-11-2024 Plan of care note Problem: [...] injury from restraints (Restraint for Interference with Material Stress Tester) Description: INTERVENTIONS: 1. Determine that other, less [...] Free from restraint(s) (Restraint for Interference with Material Stress Tester) Description: INTERVENTIONS: 1. ONCE/SHIFT or MINIMUM Q12H: [...] nutrition and hydration, hygiene, ROM, elimination needs [facility] 07-10-2024 Progress note Formatting of t his note might be different from the original. BEHAVIORAL RESTRAINTS PROVIDER ONE HOUR [id number] EVALUATION NOTE Noé Jeffery was evaluated on [...] and others. Jackson Peterson PA-C 07/11/24 0036 [facility] [employer] [facility] 07-10-2024 Plan of care [...] at the bedside 7. Instruct patient/ patient clearance representative about use of safety devices 8. Include patient/ patient clearance representative in decisions related to safety Outcome: [...] hygiene technique. 7. Identify and instruct patient/patient clearance representative in use of appropriate isolation precautions for identified infection/symptoms. 8. Provide and discuss with patient/patient clearance representative on educational MDRO sheet. 9. Encourage and monitor nutritional status daily and consult woodyard operator if indicated. 10. Implement neutropenic guidelines as needed. Outcome: Progressing Note: Evaluation of progress towards goal: Patient remains free of any signs of infection. Signs and symptoms being monitor such as fevers, chills, warm/red areas. Problem: Knowledge Deficit Goal: Patient/patient clearance representative demonstrates understanding of disease process, treatment [...] Collaborate with ancillary departments 14. Include patient/patient clearance representative in decisions related to anxiety Outcome: Progressing Note: Evaluation of progress towards goal: Patient's anxiety is at manageable level. Problem: Safety - Medical Restraint Goal: Remains free of injury from restraints (Restraint for Interference with Material Stress Tester) Description: INTERVENTIONS: 1. Determine that other, less [...] Free from restraint(s) (Restraint for Interference with Material Stress Tester) Description: INTERVENTIONS: 1. ONCE/SHIFT or MINIMUM Q12H: [...] on patient's door 9. Provide patient/ patient clearance representative with isolation education. Outcome: Progressing Note: Evaluation of progress towards goal: Discard single-use items. Clean reusable equipment. Wear gloves for direct and indirect patient care. Wash hands before and after care of patient. Problem: Moderate - High Risk Fall Score Description: Gallegos Fall Score of =/> 25 or indicated by [facility] Assessment Goal: Patient should be free from fall Description: Interventions: 1. Deaver to environment 2. Hourly rounds addressing the [...] non-skid footwear 11. Teach patient and patient clearance representative to maintain environment for safety and [...] (cane, walker) within reach 19. Request patient clearance representative bring adaptive equipment/mobility aids from home or obtain and provide as needed 20. Consult pharmacy regarding effects of med's affecting mobility, cognition, and alternatives 21. Obtain physician order for PT if risk factors associated with mobility are present 22. Obtain physician order for OT as appropriate 23. Utilize diversional activities 24. Educate patient and patient clearance representative how to maintain a safe environment during visitation times (notify nurse prior to leaving bedside) 25. Consider appropriateness of medical or non-medical affairs director 26. Set up voiding schedule as appropriate (every 2 hours) Outcome: Progressing Note: Evaluation of progress towards goal: Patient remains injury and fall free. Safety precautions in place: call light within reach, bed in lowest position, personal belongings within reach, oriented to environment, and non-slip footwear on. [facility] 07-10-2024 Plan of care [...] at the bedside 7. Instruct patient/ patient clearance representative about use of safety devices 8. Include patient/ patient clearance representative in decisions related to safety Outcome: [...] hygiene technique. 7. Identify and instruct patient/patient clearance representative in use of appropriate isolation precautions for identified infection/symptoms. 8. Provide and discuss with patient/patient clearance representative on educational MDRO sheet. 9. Encourage and monitor nutritional status daily and consult woodyard operator if indicated. 10. Implement neutropenic guidelines as needed. Outcome: Progressing Note: Evaluation of progress towards goal: patient remains afebrile at this time Problem: Knowledge Deficit Goal: Patient/patient clearance representative demonstrates understanding of disease process, treatment [...] Collaborate with ancillary departments 14. Include patient/patient clearance representative in decisions related to anxiety Outcome: Progressing Note: Evaluation of progress towards goal: discussed w/ patient coping strategies & dietary changes that may aid in controlling stress & anxiety. Problem: Safety - Medical Restraint Goal: Remains free of injury from restraints (Restraint for Interference with Material Stress Tester) Description: INTERVENTIONS: 1. Determine that other, less [...] Free from restraint(s) (Restraint for Interference with Material Stress Tester) Description: INTERVENTIONS: 1. ONCE/SHIFT or MINIMUM Q12H: [...] on patient's door 9. Provide patient/ patient clearance representative with isolation education. Outcome: Progressing Note: Evaluation of progress towards goal: patient remains afebrile at this time Problem: Moderate - High Risk Fall Score Description: Gallegos Fall Score of =/> 25 or indicated by [facility] Assessment Goal: Patient should be free from fall Description: Interventions: 1. Deaver to environment 2. Hourly rounds addressing the [...] non-skid footwear 11. Teach patient and patient clearance representative to maintain environment for safety and [...] (cane, walker) within reach 19. Request patient clearance representative bring adaptive equipment/mobility aids from home or obtain and provide as needed 20. Consult pharmacy regarding effects of med's affecting mobility, cognition, and alternatives 21. Obtain physician order for PT if risk factors associated with mobility are present 22. Obtain physician order for OT as appropriate 23. Utilize diversional activities 24. Educate patient and patient clearance representative how to maintain a safe environment during visitation times (notify nurse prior to leaving bedside) 25. Consider appropriateness of medical or non-medical affairs director 26. Set up voiding schedule as appropriate (every 2 hours) Outcome: Progressing Note: Evaluation of progress towards goal: patient remains free of injury & verbalizes understanding of fall prevention; call light in reach [facility] [employer] 07-10-2024 Progress note Formatting of t his note might be different from the original. DISCHARGE PLANNING NOTE Per RN during discharge transition rounds, barriers to discharge are: MRI with sedation today, LP with sedation today, restraints removed after procedures today, assess as needed for restraints, re-consult psych. Discharge Plan: [facility] discussed case with colin Solorio Briquette Operator will continue to follow for any discharge needs. - Lesia Caba RN 07/10/24 3:16 PM [facility] 07-10-2024 Plan of care note 07/10/24 1145: Evaluated patient after his procedures, he is calm at this time and currently not threat to himself or staff therefore we will discontinue violent restraints. He is though pulling at his lines and IV so will place bilateral soft wrist restraints. We will re-evaluate as needed Nichol Heath MD [facility] 07-10-2024 Nurse Note Patient still off unit at this time 11:58 s/p sedated MRI & LP procedure. Per neurologist, Dr Johnson, patient needs to remain flat 1-2hrs & may have regular diet. Audio Production Engineer awaiting patient return to unit & per report 1:1 sitter remains at patient bedside. [facility] 07-10-2024 Procedure note Associated Ord er(s): Lumbar Puncture Post-Procedure Diagnose(s): Dementia with behavioral disturbance ([facility]) PROCEDURE: Lumbar Puncture Date/Time: 07/10/2024 9:58 [...] to verify the correct patient, procedure, equipment, clinical support specialist and site/side marked as required. Anesthesia: local infiltration Anesthesia: Local Anesthetic: lidocaine 1% without epinephrine Sedation: Patient sedated: yes Lumbar space: L3-L4 interspace Patient's position: left lateral decubitus Opening pressure: 12 cm H2O Fluid appearance: clear Tubes of fluid: 4 Total volume: 17.5 ml Post-procedure: pressure dressing applied and adhesive bandage applied Procedure was completed Complications: none Arnulfo Haley MD PGY2 Neurology [facility] Cosigned by Zach Nails MD at 07/11/2024 12:41 AM EST Associated attestation - Zach Nails MD - 07/11/2024 12:41 AM EST Zach Nails MD [facility] Dept of Neurology [facility] 07-10-2024 Procedure note Associated Ord er(s): Lumbar Puncture Post-Procedure Diagnose(s): Dementia with behavioral disturbance ([facility]) PROCEDURE: Lumbar Puncture Date/Time: 07/10/2024 9:58 [...] to verify the correct patient, procedure, equipment, clinical support specialist and site/side marked as required. Anesthesia: local infiltration Anesthesia: Local Anesthetic: lidocaine 1% without epinephrine Sedation: Patient sedated: yes Lumbar space: L3-L4 interspace Patient's position: left lateral decubitus Opening pressure: 12 cm H2O Fluid appearance: clear Tubes of fluid: 4 Total volume: 17.5 ml Post-procedure: pressure dressing applied and adhesive bandage applied Procedure was completed Complications: none Arnulfo Haley MD PGY2 Neurology [facility] Cosigned by Zach Nails MD at 07/11/2024 12:41 AM EST Associated attestation - Zach Nails MD - 07/11/2024 12:41 AM EST Zach Nails MD [facility] Dept of Neurology [facility] documented in this encounter [facility] 07-10-2024 Nurse Note SPECIMENS X4 WERE COLLECTED, PROCESSED, AND SENT TO LAB BY DR. ARNULFO HALEY. [facility] 07-10-2024 Plan of care note [...] at the bedside 7. Instruct patient/ patient clearance representative about use of safety devices 8. Include patient/ patient clearance representative in decisions related to safety Outcome: [...] hygiene technique. 7. Identify and instruct patient/patient clearance representative in use of appropriate isolation precautions for identified infection/symptoms. 8. Provide and discuss with patient/patient clearance representative on educational MDRO sheet. 9. Encourage and monitor nutritional status daily and consult woodyard operator if indicated. 10. Implement neutropenic guidelines as needed. Outcome: Progressing Note: Evaluation of progress towards goal: Skin integrity remains in stable condition; remains w/o ss of infection, fever, pain, or increased discomfort. Problem: Knowledge Deficit Goal: Patient/patient clearance representative demonstrates understanding of disease process, treatment [...] of 0 - 24 or indicated by [facility] Assessment Goal: Patient should be free from fall Description: Interventions: 1. Deaver to environment 2. Hourly rounds addressing the [...] non-skid footwear 11. Teach patient and patient clearance representative to maintain environment for safety and [...] Collaborate with ancillary departments 14. Include patient/patient clearance representative in decisions related to anxiety Outcome: [...] on patient's door 9. Provide patient/ patient clearance representative with isolation education. Outcome: Progressing Note: Evaluation of progress towards goal: Skin integrity remains in stable condition; remains w/o ss of infection, fever, pain, or increased discomfort. Problem: Moderate - High Risk Fall Score Description: Gallegos Fall Score of =/> 25 or indicated by [facility] Assessment Goal: Patient should be free from fall Description: Interventions: 1. Deaver to environment 2. Hourly rounds addressing the [...] non-skid footwear 11. Teach patient and patient clearance representative to maintain environment for safety and [...] (cane, walker) within reach 19. Request patient clearance representative bring adaptive equipment/mobility aids from home or obtain and provide as needed 20. Consult pharmacy regarding effects of med's affecting mobility, cognition, and alternatives 21. Obtain physician order for PT if risk factors associated with mobility are present 22. Obtain physician order for OT as appropriate 23. Utilize diversional activities 24. Educate patient and patient clearance representative how to maintain a safe environment during visitation times (notify nurse prior to leaving bedside) 25. Consider appropriateness of medical or non-medical affairs director 26. Set up voiding schedule as appropriate (every 2 hours) Outcome: Progressing Note: Evaluation of progress towards goal: Call light within reach. Remains free of fall or injury. Environment free of clutter. [facility] [employer] 07-09-2024 Progress note Formatting of t his note might be different from the original. BEHAVIORAL RESTRAINTS PROVIDER ONE HOUR [id number] EVALUATION NOTE Noé Jeffery was evaluated on [...] 07/10/24 0522 Jackson Peterson PA-C 07/10/24 0523 [employer] 07-09-2024 Plan of care note Problem: Safety [...] at the bedside 7. Instruct patient/ patient clearance representative about use of safety devices 8. Include patient/ patient clearance representative in decisions related to safety Outcome: [...] hygiene technique. 7. Identify and instruct patient/patient clearance representative in use of appropriate isolation precautions for identified infection/symptoms. 8. Provide and discuss with patient/patient clearance representative on educational MDRO sheet. 9. Encourage and monitor nutritional status daily and consult woodyard operator if indicated. 10. Implement neutropenic guidelines as needed. Outcome: Progressing Note: Evaluation of progress towards goal: patient remains afebrile at this time Problem: Knowledge Deficit Goal: Patient/patient clearance representative demonstrates understanding of disease process, treatment [...] of 0 - 24 or indicated by [facility] Assessment Goal: Patient should be free from fall Description: Interventions: 1. Deaver to environment 2. Hourly rounds addressing the [...] non-skid footwear 11. Teach patient and patient clearance representative to maintain environment for safety and [...] Collaborate with ancillary departments 14. Include patient/patient clearance representative in decisions related to anxiety Outcome: [...] injury from restraints (Restraint for Interference with Material Stress Tester) Description: INTERVENTIONS: 1. Determine that other, less [...] Free from restraint(s) (Restraint for Interference with Material Stress Tester) Description: INTERVENTIONS: 1. ONCE/SHIFT or MINIMUM Q12H: [...] on patient's door 9. Provide patient/ patient clearance representative with isolation education. Outcome: Progressing Note: Evaluation of progress towards goal: patient remains afebrile at this time [facility] 07-09-2024 Progress note Formatting of t his note might be different from the original. DISCHARGE PLANNING NOTE Clinical updates including sent to. [facility] Jose Enrique. (P# [phone] ; F# [phone]) via [employer] [facility] 07-09-2024 Progress note Formatting of t [...] . Thank you, Ethel Bueno RN, PRADEEP [email or web address] The patient's Clinical Indicators include: As above CDI RESPONSE TEXT: Patient has progression of dementia causing agitation, no evidence of metabolic or toxic encephalopathy. Query created by: Ethel Bueno on 07/09/2024 5:42 AM Electronically signed by: Lonnie Baker MD 07/09/2024 3:22 PM [facility] 07-09-2024 Progress note Formatting of t his note might be different from the original. DISCHARGE PLANNING NOTE Referral sent to [facility] (P# [phone] ; F# [phone]) via [employer](TM) by [employer] [facility] Progress note Formatting of t his [...] patient to return home. Psych SW following. Briquette Operator will continue to follow for any discharge needs. - Lesia Caba RN 07/09/24 1:11 PM [facility] Plan of care note Problem: Safety [...] at the bedside 7. Instruct patient/ patient clearance representative about use of safety devices 8. Include patient/ patient clearance representative in decisions related to safety Outcome: [...] hygiene technique. 7. Identify and instruct patient/patient clearance representative in use of appropriate isolation precautions for identified infection/symptoms. 8. Provide and discuss with patient/patient clearance representative on educational MDRO sheet. 9. Encourage and monitor nutritional status daily and consult woodyard operator if indicated. 10. Implement neutropenic guidelines as needed. Outcome: Progressing Note: Evaluation of progress towards goal: monitor s/s of infection Problem: Knowledge Deficit Goal: Patient/patient clearance representative demonstrates understanding of disease process, treatment [...] of 0 - 24 or indicated by [facility] Assessment Goal: Patient should be free from fall Description: Interventions: 1. Deaver to environment 2. Hourly rounds addressing the [...] non-skid footwear 11. Teach patient and patient clearance representative to maintain environment for safety and [...] Collaborate with ancillary departments 14. Include patient/patient clearance representative in decisions related to anxiety Outcome: [...] injury from restraints (Restraint for Interference with Material Stress Tester) Description: INTERVENTIONS: 1. Determine that other, less [...] Free from restraint(s) (Restraint for Interference with Material Stress Tester) Description: INTERVENTIONS: 1. ONCE/SHIFT or MINIMUM Q12H: [...] goal: fall precautions in place, hourly rounding [facility] 07-08-2024 Progress note Formatting of t his note might be different from the original. BEHAVIORAL RESTRAINTS PROVIDER ONE HOUR [id number] EVALUATION NOTE Noé Jeffery was evaluated on [...] and others. Jackson Peterson PA-C 07/09/24 0344 [employer] 07-08-2024 Progress note Formatting of t his note might be different from the original. [facility] BEHAVIORAL RESTRAINTS PROVIDER ONE HOUR [id number] EVALUATION NOTE Noé Jeffery was evaluated on [...] and others. Jackson Peterson PA-C 07/08/24 0446 [facility] 07-08-2024 Plan of care note Problem: [...] at the bedside 7. Instruct patient/ patient clearance representative about use of safety devices 8. Include patient/ patient clearance representative in decisions related to safety Outcome: [...] hygiene technique. 7. Identify and instruct patient/patient clearance representative in use of appropriate isolation precautions for identified infection/symptoms. 8. Provide and discuss with patient/patient clearance representative on educational MDRO sheet. 9. Encourage and monitor nutritional status daily and consult woodyard operator if indicated. 10. Implement neutropenic guidelines as needed. Outcome: Progressing Note: Evaluation of progress towards goal: Patient has no infection at this time. Problem: Knowledge Deficit Goal: Patient/patient clearance representative demonstrates understanding of disease process, treatment [...] of 0 - 24 or indicated by [facility] Assessment Goal: Patient should be free from fall Description: Interventions: 1. Deaver to environment 2. Hourly rounds addressing the [...] non-skid footwear 11. Teach patient and patient clearance representative to maintain environment for safety and [...] Collaborate with ancillary departments 14. Include patient/patient clearance representative in decisions related to anxiety Outcome: Progressing Note: Evaluation of progress towards goal: Patient is able to manage anxiety level at this time, plan of care still ongoing. [facility] 07-07-2024 Plan of care note Problem: [...] at the bedside 7. Instruct patient/ patient clearance representative about use of safety devices 8. Include patient/ patient clearance representative in decisions related to safety Outcome: [...] hygiene technique. 7. Identify and instruct patient/patient clearance representative in use of appropriate isolation precautions for identified infection/symptoms. 8. Provide and discuss with patient/patient clearance representative on educational MDRO sheet. 9. Encourage and monitor nutritional status daily and consult woodyard operator if indicated. 10. Implement neutropenic guidelines as needed. Outcome: Progressing Note: Evaluation of progress towards goal: monitor s/s of infection, monitor labs, standard precautions Problem: Knowledge Deficit Goal: Patient/patient clearance representative demonstrates understanding of disease process, treatment [...] of 0 - 24 or indicated by [facility] Assessment Goal: Patient should be free from fall Description: Interventions: 1. Deaver to environment 2. Hourly rounds addressing the [...] non-skid footwear 11. Teach patient and patient clearance representative to maintain environment for safety and engage in all aspects of fall prevention program Outcome: Progressing Note: Evaluation of progress towards goal: fall precautions in place, hourly rounding, call light within reach [facility] [employer] 07-07-2024 Progress note Formatting of t his [...] by: Khalif Valerio MD 07/07/2024 7:10 AM [facility] 07-06-2024 Plan of care note Problem: [...] at the bedside 7. Instruct patient/ patient clearance representative about use of safety devices 8. Include patient/ patient clearance representative in decisions related to safety Outcome: [...] hygiene technique. 7. Identify and instruct patient/patient clearance representative in use of appropriate isolation precautions for identified infection/symptoms. 8. Provide and discuss with patient/patient clearance representative on educational MDRO sheet. 9. Encourage and monitor nutritional status daily and consult woodyard operator if indicated. 10. Implement neutropenic guidelines as needed. Outcome: Progressing Note: Evaluation of progress towards goal: Patient remains free of any signs of infection. Signs and symptoms being monitor such as fevers, chills, warm/red areas. Problem: Knowledge Deficit Goal: Patient/patient clearance representative demonstrates understanding of disease process, treatment [...] be free from fall Description: Interventions: 1. Deaver to environment 2. Hourly rounds addressing the [...] non-skid footwear 11. Teach patient and patient clearance representative to maintain environment for safety and [...] Description: INTERVENTIONS: 1. Encourage patient or legal clearance representative to report early pain and ask [...] per policy 9. Teach patient or legal clearance representative interventions for comforting Outcome: Completed Note: Evaluation of progress towards goal: Patient has no complaints of pain. Reassessed per policy. [email or web address] 07-06-2024 Progress note Formatting of t his note might be different from the original. An attempt was made to interview the patient today in the presence of his . The patient refused and asked the account underwriter to leave stating that he does not want a psychiatric evaluation. Psychiatry will sign off. [email or web address] Work Phone: 07-06-2024 Progress note Formatting of t his note is different from the original. Images from the original note were not included. DISCHARGE PLANNING NOTE Audio Production Engineer met with patient, introduced self, and explained [...] medication assistance resources. PCP: JAE LOPEZ MD Pharmacy:[facility] PCP and pharmacy confirmed with patient. [...] - Jac Austin RN 07/06/24 4:01 PM [employer] 07-06-2024 Progress note Formatting of t his note might be different from the original. Called spouse and left message. Will await call back. - NANCY Martines 07/06/24 3:25 PM [employer] 07-06-2024 Progress note Formatting of t his [...] spouse. - NANCY Martines 07/06/24 11:02 AM [employer] 07-06-2024 Consult note Associated Order (s): IP CONSULT TO NEUROLOGY Images from the original note were not included. [facility] Neurology General Neurology Consult Note Primary Neurology service: [phone] Chief Complaint: HPI: Noé Jeffery is a [...] with complete remission. He follows up with [facility] and had underwent a heavy [...] decline, Patient had presented to ED in [place] June 18 after waking up not oriented and delusional. Then June 25 he woke up again not knowing where he is delusional thinking his sister was an intruder so he was brought to [facility] and discharged later that evening. He was seen by social service director referred to a mental health center and per family his mental status had worsened and they felt he was being overmedicated with Benadryl. 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 The impression there was no infectious or metabolic etiology so patient was transferred to [facility] for higher level of care. On my evaluation patient was restless fidgeting and did not allow me to speak him or enter the room, he would tell me his family members names what refused to tell me his name asked me to leave the room. I could not do any assessment Lucas test or neurological exam. Per family patient [...] markers confirmed early onset Alzheimer's established in [facility] October 2022 in addition to hyperlipidemia, GERD, dm 2. Patient was transferred found [facility] for higher level of care and workup of sharp decline in cognition since May 2024. Patient had presented multiple times to the ED and admitted [facility] for delusional thinking/hallucinations/agitatio n. On evaluation [...] once reconciled. Khalif Valerio MD PGY-1 Neurology [facility] 07/06/24 9:[address] Sofia This patient is being followed by the Neurology Resident service. Contact attending directly during these hours: Tuesday to 7:30-8:30 A.M. to Tuesday 12-1:00 p.m. Primary Neurology service: [phone] Consult neurology service: [phone] Resident Stroke Service: [phone] If the patient belongs to the Stroke [facility]SH[facility] service please contact the Stroke [facility]SHLEE directly. Cosigned by Kelley Sofia MD at 07/06/2024 11:32 PM EST Associated attestation - Kelley Sofia MD - 07/06/2024 11:32 PM EST Kelley Sofia MD Neurology [facility] 07-06-2024 History and physical note Images from the original note were not included. [facility] History and Physical 07/06/2024 [...] dementia, GERD, perforated colon who presents to [facility] as a transfer from [place] for neurologic evaluation. History obtained from sister [...] 11/24/2019 Performed by Skyler Bowen MD at [facility] 3YEARS AGO COLOSTOMY CLOSURE Allergy: Diphenhydramine Prior to Admission medications Medication Sig Start Date End Date Taking? Authorizing Provider aspirin 81 mg Take 1 tablet (81 mg total) by mouth daily. Patient not taking: Reported on 05/06/2020 11/26/19 Kathia Gabriel APRN-STOREHOUSE CLERK [employer] 28 gauge lancets 09/07/18 Not In [...] in full via EMR. Nichol Heath MD [facility] 07-06-2024 History and physical note Images from the original note were not included. [facility] History and Physical 07/06/2024 [...] Chief Complaint No chief complaint on file. [facility] Noé Jeffery is a 58 y.o. male past medical history of early-onset dementia, GERD, perforated colon who presents to [facility] as a transfer from [place] for neurologic evaluation. History obtained from sister [...] 11/24/2019 Performed by Skyler Bowen MD at [facility] 3YEARS AGO COLOSTOMY CLOSURE Allergy: Diphenhydramine Prior [...] Nichol Heath MD documented in this encounter [facility] 06-26-2024 Note Progress Note-Nurse Attempted to call office due to family requesting additional lab work (PSA level). There was no answer at the office and no option to leave voicemail. Intrusted family to call later on today to talk to Dr. Graham's user experience architect about obtained PSA level [facility] 03-09-2024 Telephone encounter Note I have refilled your prescription. A review of your chart shows that you have not had a follow up visit in more than 1 year. Refills for medications require at least 1 follow up visit per year. Please call: to schedule an appointment. Lisandra Gomez APRN.CNP [facility] 03-09-2024 Miscellaneous Notes I have refilled your prescription. A review of your chart shows that you have not had a follow up visit in more than 1 year. Refills for medications require at least 1 follow up visit per year. Please call: to schedule an appointment. Lisandra Gomez APRN.CNP documented in this encounter [facility] 01-11-2024 Hospital Discharge instructions Patient Education [...] treatment? Where to find more information The [place] [employer] Society: www.cancer.org [place] [employer] Association: www.auanet.org Contact a health care [...] provider. Document Revised: 11/30/2021 Document Reviewed: 11/30/2021 [employer] Patient Education 2022 [employer]. Follow Up Care 12/23/2023 09:42:08 With:Santos PEÑA, Danni Portillo, URL, URO Address: When: Unknown Comments:Pending MRI, may proceed with fusion bx [facility] 01-11-2024 Note Urology Office/Clini c [...] repair with mesh. -Will schedule MRI @ [facility]. -Will schedule MRI fusion transperineal prostate [...] Biopsy of pro (more content not included)... [facility] Comment on above: Result Comment: Elec [...] Where to find more information ? The [place] Cancer Society: www.cancer.org ? [place] U[employer] Association: www.auanet.org Contact a health care [...] of the rectum. (more content not included)... [facility] 12-06-2023 Telephone encounter Note The following approved medication requests have been transmitted electronically. Requested Prescriptions Signed Prescriptions Disp Refills donepezil (ARICEPT) 5 mg tablet 90 tablet 0 Sig: Take 1 tablet by mouth once daily. Authorizing Provider: LORRI PLASCENCIA Ordering User: JESSICATANISHA YOUNG APRN.CNP [facility] 12-06-2023 Miscellaneous Notes The following approved medication requests have been transmitted electronically. Requested Prescriptions Signed Prescriptions Disp Refills donepezil (ARICEPT) 5 mg tablet 90 tablet 0 Sig: Take 1 tablet by mouth once daily. Authorizing Provider: LORRI PLASCENCIA Ordering User: TANISHA JEFFERS APRN.CNP documented in this encounter [facility] 03-07-2023 Miscellaneous Notes Summary: [facility] Baseline Interest A voicemail was left about participation in [facility] research study. documented in this encounter [facility] 02-09-2023 Miscellaneous Notes Inzen [employer] message sent documented in this encounter [facility] 02-08-2023 Miscellaneous Notes Summary: [facility] Potential Participant A call was made to of patient to talk about interest in participating in [facility]. expressed interest in participating. The [facility] consent document was sent through email. A call will be made in a week to discuss enrollment. documented in this encounter [facility] 02-04-2023 Miscellaneous Notes Images from the original note were not included. documented in this encounter [facility] 02-02-2023 Miscellaneous Notes The following approved medication requests have been transmitted electronically. Requested Prescriptions Signed Prescriptions Disp Refills donepezil (ARICEPT) 5 mg tablet 90 tablet 1 Sig: TAKE 1 TABLET BY MOUTH EVERY DAY Authorizing Provider: LORRI PLASCENCIA Ordering User: KIMO PATE APRN.CNP documented in this encounter [facility] 01-13-2023 Miscellaneous Notes Patient returned call, requested a call back. I left a message explaining the 4% requirement from Medicare, and advised to contact Medicare if they have insurance questions. Advised to call me back if they had other concerns or questions. Sonal Weinstein APRN.EFRAIN documented in this encounter [facility] 12-03-2022 Miscellaneous Notes Faxed order, office notes, demographics, and sleep study to: DME name: [facility] fax: [phone] DME ph: documented in this encounter [facility] 12-02-2022 History of Present illness Narrative Images from the original note were not included. [facility] Follow up/ Established [...] will have a prescription sent to a [employer] company - [employer] who will be calling you in the [...] for you. Roosevelt Merlos PGY-4 Sleep fellow [facility] I have supervised and discussed the patient case with the Sleep Medicine Fellow including interviewing the patient in person and have updated the electronic medical record where necessary. I agree with the history, physical, impression and recommendations as documented. Gera Cardona DO, CBSM, ABSM Clinical Staff Sleep Medicine [facility] [place] [facility] [address] [place] [address] I have communicated my name and active licensure. The patient's identity and physical location were verified at the time of this visit. Either the patient or their legal clearance representative has been informed of the risks and benefits of -- and alternatives to -- treatment through a remote evaluation and consents to proceed with the evaluation remotely. Interval history : Here for follow up for SHELBY follow up after starting PAP therapy. ; SLEEP APNEA Sleep apnea type : SHELBY, Most Recent Apnea-Hypopnea Index (AHI): 47.7 Treatment : PAP therapy DME: [facility] PAP History: Uses Bilevel PAP for 2 [...] or near accidents due to drowsy drivin [place] Sleepiness Scale 04/28/2022 Score Incomplete PROMIS CAT [...] which included preparing to see the patient, [id number] patient care, completing clinical documentation, obtaining and/or [...] are our recommendations: - Cognitive therapy at [facility]. - Aricept 5 mg daily with breakfast - Namenda 5 twice a day with breakfast and dinner. - Maintain physically, socially and cognitively healthy lifestyle. - Schedule in person report in February 2023. Please schedule next visit with Lorri Plascencia MD, PhD or Kimo Pate NP in person in February -March 2023 To schedule testing and visits please call: [phone]. If you have new, unexpected concerns in between visits please call our office at [phone] ( you will be able to reach one of our nurses). [facility] fax [phone] Ways to keep your brain healthy: Follow [...] fish and fish high in mercury (swordfish, Cook Islander sea martinez, orange roughy, ahi tuna, albacore [...] resources are: The Alzheimer's Association (web site: alz.org/lloyd) available 24 hours a day, 7 days per week. Contact: Local: ; Toll free: [phone] Family Caregiver [place] (web site: Caregiver.org) MARLEEN Hawkins-- a secure online solution for quality information, support, and resources for family caregivers. Contact: Toll-free number: [phone] Alzheimers.gov - Find Alzheimer disease and related dementias information, resources, research and more. documented in this encounter [facility] 11-17-2022 History of Present illness Narrative Images from the original note were not included. Noé Jeffery [address] [place] [id number] November 17, 2022 [facility] Report Virtual Virtual visit with Patient and family members Chief complaint: poor memory, forgetfulness I have communicated my name and active licensure. The patient's identity and physical location were verified at the time of this visit. Either the patient or their legal clearance representative has been informed of the risks [...] that time. 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 He recalls forgetting a clip/tie for his gun one day. He also failed firearm safety training which is required every months. He states he is still able to perform ADLs at home and still able to work in his other job with [employer]. 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 Bradycardia. PLAN: - [facility] referral - Cognitive therapy at [facility]. - Aricept 5 mg daily with breakfast [...] file., (fax) None documented in this encounter [facility] 10-12-2022 Nurse Note [facility] LUMBAR PUNCTURE NURSE DISCHARGE NOTE The [...] Tanisha Jeffers RN documented in this encounter [facility] 10-12-2022 Instructions Miguelito Chicas APRN.STOREHOUSE CLERK - 10/12/2022 10:31 AM EDT Images from the original note were not included. [facility] [place] GOING HOME INSTRUCTIONS POST LP HEADACHE Prevention [...] as coffee or tea You can take hwjo-xbd-lyqilze Tylenol and/or Ibuprofen as directed INFECTION PREVENTION [...] from 8-5pm, please contact our office line [phone] and then hit 0 , please ask our field administrative assistant to page the provider who performed the spinal tap. -For nights or weekends, call or toll free and ask the blanket winder operator the page the Neurology resident on-call. 2. If your headache is unusually severe regardless of bedrest or lasts more than two days 3. If you develop a fever 4. If you notice inflammation, pus formation or clear drainage from the site of the needle puncture You may resume your usual activities after 48 hours. documented in this encounter [facility] 10-12-2022 History of Present illness Narrative [facility] PROCEDURE FOR DIAGNOSTIC TESTING Noé Jeffery, [id number] October 12, 2022, 8:57 AM INFORMED CONSENT [...] October 12, 2022 documented in this encounter [facility] 08-12-2022 History of Present illness Narrative [...] Abs Lymph 1.00 - 4.00 k/uL 1.45 Edgar% % 6.2 Abs Edgar <0.87 k/uL 0.31 Eosin% % 0.6 Abs Eosin <0.46 k/uL 0.03 Baso% % 0.8 Abs Baso <0.11 k/uL 0.04 Immature Gran % % 0.2 IMMATURE GRANS (ABS) <0.10 k/uL <0.03 NRBC /100 WBC 0.0 Absolute nRBC <0.01 k/uL <0.01 [employer]TYPE [employer] Coordination Interventions: none Leah Mckeon RN documented in this encounter [facility] 08-11-2022 Instructions Lorri Plascencia MD - [...] To schedule testing and visits please call: [phone]. If you have new, unexpected concerns in between visits please call our office at [phone] ( you will be able to reach one of our nurses). [facility] fax [phone] Ways to keep your brain healthy: Follow [...] fish and fish high in mercury (swordfish, [place] sea martinez, orange roughy, ahi tuna, albacore [...] resources are: The Alzheimer's Association (web site: alz.org/lloyd) available 24 hours a day, 7 days per week. Contact: Local: ; Toll free: [phone] Family Caregiver [place] (web site: Caregiver.org) MARLEEN Hawkins-- a secure online solution for quality information, support, and resources for family caregivers. Contact: Toll-free number: [phone] Alzheimers.gov - Find Alzheimer disease and related dementias information, resources, research and more. documented in this encounter [facility] 08-11-2022 History of Present illness Narrative Images from the original note were not included. Noé Jeffery [address] [place] [id number] August 11, 2022 Time: 2:35 PM Center [...] that time. 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 Connection aborted after 15 min. of waiting online KGR documented in this encounter [facility] 05-07-2022 Miscellaneous Notes Radiology Service Progress [...] DATA: Not applicable SIGNED BY: Nicole Huffman, outpatient dietitian May 07, 2022 1:31 PM documented in this encounter [facility] 04-30-2022 Instructions Roosevelt Merlos MD - [...] will have a prescription sent to a [employer] company - [employer] who will be calling you in the next 1-2 weeks or so. Please call them directly or us if you do not hear from them in this time frame. - You should be eligible for new supplies approximately every 3-6 months, depending on your insurance coverage. - If your mask doesn't fit well, call the [employer] company before 30 days are up to get a new mask without an additional charge. - Insurance requires regular usage and periodic office follow ups for PAP therapy, to continue to cover supplies. - Follow up in 2 months in the office. Recommend scheduling this appointment now to ensure the best time for you. CMS Requirements - Your insurance requires a uyni-tx-ygmp follow up visit within a 31-90 day [...] for BiPAP supplies. documented in this encounter [facility] 04-30-2022 History of Present illness Narrative Images from the original note were not included. [facility] New Patient Evaluation PATIENT NAME: Noé Jeffery DATE OF SERVICE: April 30, 2022 CONSULTING PROVIDER: Narciso Guerra [address] [facility] [address] REASON FOR CONSULT: Narciso Guerra sends the [...] or near accidents due to drowsy drivin [place] Sleepiness Scale 04/28/2022 Score Incomplete PROMIS CAT [...] will have a prescription sent to a [employer] company - [employer] who will be calling you in the next 1-2 weeks or so. Please call them directly or us if you do not hear from them in this time frame. - You should be eligible for new supplies approximately every 3-6 months, depending on your insurance coverage. - If your mask doesn't fit well, call the [employer] company before 30 days are up to get a new mask without an additional charge. - Insurance requires regular usage and periodic office follow ups for PAP therapy, to continue to cover supplies. - Follow up in 2 months in the office. Recommend scheduling this appointment now to ensure the best time for you. Roosevelt Merlos PGY-4 Sleep fellow [facility] I have supervised and discussed the patient case with the Sleep Medicine Fellow including interviewing the patient in person and have updated the electronic medical record where necessary. I agree with the history, physical, impression and recommendations as documented. Gera Cardona DO, CBSM, ABSM Clinical Staff Sleep Medicine [facility] [place] [facility] [address] [place] [address] [place] [address] documented in this encounter [facility] 04-26-2022 History of Present illness Narrative [...] Program (KP): KP was not completed in [facility] by patient and accepted Study type: Split Study-Polysomnogram with CPAP titration Adverse Event: No (If yes create a new abstract) SERS Event: No Comments: Patient was advised to follow up with their ordering provider regarding test results [employer] April 25, 2022 Standing PSG Orders signed in the last 90 days None Future PSG Orders signed in the last 90 days Ordered Auth. provider POLYSOMNOGRAM (PSG) [[id number]] 04/22/22 Narciso Guerra MD Assoc. diagnoses: Cognitive [...] 8:46 PM 04/25/2022 documented in this encounter [facility] 04-22-2022 History of Present illness Narrative [facility] [place] AUDIOLOGIC EVALUATION REPORT Name: Noé Jeffery CCF#: [id number] Date of Service: 04/22/2022 Date of : 1965 Age: [age] year old Referred by: Narciso Guerra [address] [facility] [address] Referred for: Evaluation of the cause of disorder of hearing, tinnitus, or balance. Referral documented: In an order in [facility] Patient's major complaints: Noé reported he [...] evaluation of middle ear function. CPT code: 32886 RIGHT EAR: Tympanogram that was flat, with no identifiable peak and reduced TM mobility consistent with a conductive pathology (wax). LEFT EAR: Normal ME pressure and TM compliance (mobility). ACOUSTIC REFLEXES Description of procedure: This test is an objective measure of auditory and facial nerve pathways. CPT code: 26889, 81253 RIGHT EAR PROBE EAR: (ipsi right stimulus [...] bone conduction and speech recognition testing. CPT code:22891 RIGHT EAR: Hearing Sensitivity: Did not test. Word Recognition Score: Did not test. LEFT EAR: Hearing Sensitivity: Did not test. Word Recognition Score: Did not test. RECOMMENDATIONS Medical follow up for removal of bilateral impacted cerumen. Patient will see [facility] today. Hearing Test after #1. Juana Horta, CCC/A Clinical Warp Coiler JIMENEZ Abbrev- iation Definition Degree of hearing sensitivity dB range WNL within normal limits WNL 0 - 20 SNHL sensorineural hearing loss Mild 20-40 CHL conductive hearing loss Moderate 40-55 MHL mixed hearing loss Moderately-Severe 55-70 WRS word recognition score Severe 70-90 ME middle ear Profound 90 + TM tympanic membrane documented in this encounter [facility] 04-22-2022 History of Present illness Narrative This note was created using Smart[employer]. Subjective Noé Jeffery is a 56 year [...] externa of left ear, unspecified type Plan: gmfjnium-mdzdcmqlr-zdxxllpkqttuf e (CORTISPORIN) 3.5-10,000-1 mg/mL-unit/mL-% otic suspension Use as directed Follow up with PCP if symptoms worsen or do not improve Brenda Blanco APRN.EFRAIN April 22, 2022 documented in this encounter [facility] 04-22-2022 Instructions Brenda Blanco APRN.EFRAIN - [...] made for swimming. documented in this encounter [facility] 07-27-2020 Note MR#: [id number] [facility] Pt. Name: Noé Jeffery Admitted: 07/24/2020 [...] Ga MD Date Trans: 07/27/2020 03:32 A/patricia [id number] cc: Jae Lopez M.D. [address] [place] [address] [facility] 07-24-2020 Note MR#: [id number] I [facility] Pt. Name: Noé Jeffery Admitted: 07/21/2020 [...] Ga MD Date Trans: 07/24/2020 10:00 A/patricia [id number] cc: Jae Lopez M.D. [address] [place] [address] [facility] Evaluation + Plan note No data available for this section [facility] [facility] note Future Appointments Appointment Date:06/26/2024 12:00:00 PM Scheduled Provider: Location:[facility] Appointment Type:Surgery FT Appointment Date:07/11/2024 11:15:00 AM Scheduled Provider:Danni Graham MD Location:[facility] Appointment Type:URO Office Visit [facility] Evaluation + Plan note Future Appointments Appointment Date:07/11/2024 11:15:00 AM Scheduled Provider:Danni Graham MD Location:[facility] Appointment Type:URO Office Visit [facility] Evaluation note Diagnosis Bilateral impacted cerumen- Primary Impacted cerumen Elevated blood pressure reading without diagnosis of hypertension Acute otitis externa of left ear, unspecified type [facility] Diagnosis Bilateral impacted cerumen- Primary Impacted cerumen [facility]* Diagnosis Sleep apnea, unspecified type- Primary Sleep hypopnea Other sleep disturbances [facility]* Diagnosis SHELBY (obstructive sleep apnea)- Primary Obstructive sleep apnea (adult) (pediatric) documented in this encounter [facility]* Diagnosis Memory loss [facility] Diagnosis Memory loss- Primary [facility]* Diagnosis Memory loss- Primary Encounter for lumbar puncture [facility]* Diagnosis Alzheimer's disease (HCC)- Primary Alzheimer's disease [facility]* Diagnosis Obstructive sleep apnea- Primary Obstructive sleep apnea (adult) (pediatric) Primary central sleep apnea Hyperlipidemia, unspecified hyperlipidemia type documented [facility] this [facility]* Diagnosis Alzheimer's disease (HCC)- Primary Alzheimer's disease documented [facility]* Diagnosis Research study patient- Primary documented in this encounter [facility]* Diagnosis Cognitive changes Other signs and symptoms involving cognition documented [facility]* Diagnosis Alzheimer's disease (HCC) Alzheimer's disease documented in this encounter [facility] note* Diagnosis Alzheimer's disease (HCC) Alzheimer's disease [facility] noteNo assessment information availableAccess [facility] Work Phone: Evaluation note* Diagnosis Dementia with behavioral disturbance (CMS-HCC)- Primary Dementia with behavioral disturbance (CMS-HCC) Status post colostomy, follow-up exam (CMS-HCC) Follow-up examination, following unspecified surgery Altered mental status Status post colostomy, follow-up exam (CMS-HCC) Follow-up examination, following unspecified surgery [facility] No data available for this section [facility] InstructionsNot on filedocumented in this encounter [facility] No data available for this section [facility] reason for visit Narrative* Auth/Cert (Routine) Specialty Diagnoses / Procedures Referred By Naseem araujo Referred To Contact Diagnoses Dementia with behavioral disturbance (CMS-HCC) At risk for long QT syndrome Altered mental status Altered Mental Status Nichol Heath MD [address] [place] [address], [address] [place] [address] Phone: tel: fax: Referral ID Status Reason Start Date Expiration Date Visits Re quested Visits Authorized [id number] 1 1 [employer] Summary Purpose Family History No Family History [...] CONSULT TO SLEEP MEDICINE - ADULT OFFICE/OUTPATIENT [facility] 60-74 MINUTES Narciso Guerra MD [address] [place] [address] Referral ID Status Reason Start Date Expiration Date Visits Requested Visits Authorized [id number] Authorized PCP Requested Referral 04/28/2022 04/28/2023 1 1 Specialty Diagnoses / Procedures Referred By Contac t Referred To Contact [facility] Diagnoses Alzheimer's disease (HCC) Procedures CONSULT TO SPEECH THERAPY OFFICE/OUTPATIENT [facility] 60-74 MINUTES Lorri Plascencia MD [address] [place] [address] [place] [address] Referral ID Status Reason Start Date Expiration Date Visits Requested Visits Authorized [id number] Pending Review Auto-Generat ed Referral 11/17/2022 11/17/2023 1 1 Specialty Diagnoses / Procedures Referred By Davidac t Referred To Contact [facility] Diagnoses Cognitive changes Procedures MRI 3D POST PROCESSING 3D RENDERING W/INTERP&POSTPROC [place] [address] [place] [address] Mr [facility] [place] [address] Referral ID Status Reason Start Date Expiration Date V isits Requested Visits Authorized [id number] Closed Auto-Generate d Referral 04/22/2022 05/22/2023 1 1 Specialty Diagnoses / Procedures Referred By Davidac t Referred To Contact MR IMAGING Diagnoses Cognitive changes Procedures MRI BRAIN WO IVCON MRI BRAIN BRAIN STEM W/O CONTRAST MATERIAL Narciso Guerra MD [address] [place] [address] Mr [facility] Referral ID Status Reason Start Date Expiration Date V isits Requested Visits Authorized [id number] Closed Auto-Generate d Referral 04/22/2022 06/06/2022 1 [...] and content) DATE CREATED AUTHOR 04/15/2021 [facility] DATE CREATED AUTHOR AUTHOR'S ORGANIZ ATION 05/09/2022 [facility] DATE CREATED AUTHOR AUTHOR'S ORGANIZ ATION 10/28/2022 [facility] DATE CREATED AUTHOR AUTHOR'S ORGANIZ ATION 06/28/2024 [facility] DATE CREATED AUTHOR AUTHOR'S ORGANIZ ATION 07/01/2024 [facility] DATE CREATED AUTHOR AUTHOR'S ORGANIZ ATION 07/04/2024 [facility] DATE CREATED AUTHOR AUTHOR'S ORGANIZ ATION 07/11/2024 [facility] DATE CREATED AUTHOR AUTHOR'S ORGANIZ ATION 07/22/2024 [facility] DATE CREATED AUTHOR AUTHOR'S ORGANIZ ATION 07/28/2024 [facility] DATE CREATED AUTHOR AUTHOR'S ORGANIZ ATION 07/31/2024 [facility] DATE CREATED AUTHOR AUTHOR'S ORGANIZ ATION 08/05/2024 [facility] Source Comments (unrecognize d section and content) In the event this informatio n is protected by the Federal Confidentiality of Alcohol and Drug Abuse Patient Records regulations: The Federal rules restrict any use of the information to criminally investigate or prosecute any alcohol or drug abuse patient.[facility] the event this information is protected by the Federal Confidentiality of Alcohol and Drug Abuse Patient Records regulations: The Federal rules restrict any use of the information to criminally investigate or prosecute any alcohol or drug abuse patient.[facility] HospitalIn the event this information is protected by the Federal Confidentiality of Alcohol and Drug Abuse Patient Records regulations: The Federal rules restrict any use of the information to criminally investigate or prosecute any alcohol or drug abuse patient.[facility] HospitalIn the event this information is protected by the Federal Confidentiality of Alcohol and Drug Abuse Patient Records regulations: The Federal rules restrict any use of the information to criminally investigate or prosecute any alcohol or drug abuse patient.[facility] HospitalIn the event this information is protected by the Federal Confidentiality of Alcohol and Drug Abuse Patient Records regulations: The Federal rules restrict any use of the information to criminally investigate or prosecute any alcohol or drug abuse patient.[facility] HospitalIn the event this information is protected by the Federal Confidentiality of Alcohol and Drug Abuse Patient Records regulations: The Federal rules restrict any use of the information to criminally investigate or prosecute any alcohol or drug abuse patient.[facility] HospitalIn the event this information is protected by the Federal Confidentiality of Alcohol and Drug Abuse Patient Records regulations: The Federal rules restrict any use of the information to criminally investigate or prosecute any alcohol or drug abuse patient.[facility] HospitalIn the event this information is protected by the Federal Confidentiality of Alcohol and Drug Abuse Patient Records regulations: The Federal rules restrict any use of the information to criminally investigate or prosecute any alcohol or drug abuse patient.[facility] HospitalIn the event this information is protected by the Federal Confidentiality of Alcohol and Drug Abuse Patient Records regulations: The Federal rules restrict any use of the information to criminally investigate or prosecute any alcohol or drug abuse patient.[facility] HospitalIn the event this information is protected by the Federal Confidentiality of Alcohol and Drug Abuse Patient Records regulations: The Federal rules restrict any use of the information to criminally investigate or prosecute any alcohol or drug abuse patient.[facility] HospitalIn the event this information is protected by the Federal Confidentiality of Alcohol and Drug Abuse Patient Records regulations: The Federal rules restrict any use of the information to criminally investigate or prosecute any alcohol or drug abuse patient.[facility] HospitalIn the event this information is protected by the Federal Confidentiality of Alcohol and Drug Abuse Patient Records regulations: The Federal rules restrict any use of the information to criminally investigate or prosecute any alcohol or drug abuse patient.[facility] HospitalIn the event this information is protected by the Federal Confidentiality of Alcohol and Drug Abuse Patient Records regulations: The Federal rules restrict any use of the information to criminally investigate or prosecute any alcohol or drug abuse patient.[facility] HospitalIn the event this information is protected by the Federal Confidentiality of Alcohol and Drug Abuse Patient Records regulations: The Federal rules restrict any use of the information to criminally investigate or prosecute any alcohol or drug abuse patient.[facility] HospitalIn the event this information is protected by the Federal Confidentiality of Alcohol and Drug Abuse Patient Records regulations: The Federal rules restrict any use of the information to criminally investigate or prosecute any alcohol or drug abuse patient.[facility] HospitalIn the event this information is protected by the Federal Confidentiality of Alcohol and Drug Abuse Patient Records regulations: The Federal rules restrict any use of the information to criminally investigate or prosecute any alcohol or drug abuse patient.[facility] HospitalIn the event this information is protected by the Federal Confidentiality of Alcohol and Drug Abuse Patient Records regulations: The Federal rules restrict any use of the information to criminally investigate or prosecute any alcohol or drug abuse patient.[facility] HospitalIn the event this information is protected by the Federal Confidentiality of Alcohol and Drug Abuse Patient Records regulations: The Federal rules restrict any use of the information to criminally investigate or prosecute any alcohol or drug abuse patient.[facility] HospitalIn the event this information is protected by the Federal Confidentiality of Alcohol and Drug Abuse Patient Records regulations: The Federal rules restrict any use of the information to criminally investigate or prosecute any alcohol or drug abuse patient.[facility] HospitalIn the event this information is protected by the Federal Confidentiality of Alcohol and Drug Abuse Patient Records regulations: The Federal rules restrict any use of the information to criminally investigate or prosecute any alcohol or drug abuse patient.[facility] HospitalIn the event this information is protected by the Federal Confidentiality of Alcohol and Drug Abuse Patient Records regulations: The Federal rules restrict any use of the information to criminally investigate or prosecute any alcohol or drug abuse patient.[facility] HospitalIn the event this information is protected by the Federal Confidentiality of Alcohol and Drug Abuse Patient Records regulations: The Federal rules restrict any use of the information to criminally investigate or prosecute any alcohol or drug abuse patient.[facility] HospitalIn the event this information is protected by the Federal Confidentiality of Alcohol and Drug Abuse Patient Records regulations: The Federal rules restrict any use of the information to criminally investigate or prosecute any alcohol or drug abuse patient.[facility] HospitalIn the event this information is protected by the Federal Confidentiality of Alcohol and Drug Abuse Patient Records regulations: The Federal rules restrict any use of the information to criminally investigate or prosecute any alcohol or drug abuse patient.[facility] HospitalIn the event this information is protected by the Federal Confidentiality of Alcohol and Drug Abuse Patient Records regulations: The Federal rules restrict any use of the information to criminally investigate or prosecute any alcohol or drug abuse patient.[facility] HospitalIn the event this information is protected by the Federal Confidentiality of Alcohol and Drug Abuse Patient Records regulations: The Federal rules restrict any use of the information to criminally investigate or prosecute any alcohol or drug abuse patient.[facility] HospitalIn the event this information is protected by the Federal Confidentiality of Alcohol and Drug Abuse Patient Records regulations: The Federal rules restrict any use of the information to criminally investigate or prosecute any alcohol or drug abuse patient.[facility] HospitalIn the event this information is protected by the Federal Confidentiality of Alcohol and Drug Abuse Patient Records regulations: The Federal rules restrict any use of the information to criminally investigate or prosecute any alcohol or drug abuse patient.[facility] HospitalIn the event this information is protected by the Federal Confidentiality of Alcohol and Drug Abuse Patient Records regulations: The Federal rules restrict any use of the information to criminally investigate or prosecute any alcohol or drug abuse patient.[facility] Reason for Visit (unrecogniz ed section and content) Reason Comments Earwax Bilateral ear Specialty Diagnoses / Procedures Referred By Contac t Referred To Contact Diagnoses Bilateral hearing loss, unspecified hearing loss type Procedures HEARING TEST/AUDIOGRAM COMPRE AUDIOMETRY THRESHOLD [place] [address] [place] [address] [facility] [address] [place] [address] Referral ID Status Reason Start Date Expiration Date V isits Requested Visits Authorized [id number] Closed Auto-Generate d Referral 04/22/2022 07/21/2022 1 1 Reason Comments New Patient Evaluation Had sleep study d one. Specialty Diagnoses / Procedures Referred By Contac t Referred To Contact Diagnoses Sleep apnea, unspecified type Sleep hypopnea Procedures CONSULT TO SLEEP MEDICINE - ADULT OFFICE/OUT[facility]IENT [facility] 60-74 MINUTES Narciso Guerra MD [address] [place] [address] Referral ID Status Reason Start Date Expiration Date V isits Requested Visits Authorized [id number] Closed PCP Requested Referral 04/28/2022 04/28/2023 1 1 Reason Comments Memory Loss Specialty Diagnoses / Procedures Referred By Contac t Referred To Contact Neurology Diagnoses Memory loss Procedures CONSULT TO NEUROLOGY OFFICE/[facility]PATIENT [facility] M[facility] 60-74 MINUTES Narciso Guerra MD [address] [place] [address] Referral ID Status Reason Start Date Expiration Date V isits Requested Visits Authorized [id number] Closed PCP Requested Referral 06/22/2022 06/22/2023 1 [...] MD [facility] [place] [id number] [place] [address] Referral ID Status Reason Start Date Expiration Date V isits Requested Visits Authorized [id number] Closed Auto-Generate d Referral 04/22/2022 06/06/2022 1 [...] March 15, 2024 End: March 15, 2024 [employer] Worker Relationship Specialty Start Date End Date Jae Lopez MD PCP - General 03/27/18 [employer] Worker Relationship Specialty Start Date End Date Jae [...] whole-do not crush or chew. Although the felting machine operator helper does not recommend opening the capsule, the [...] BE BASED ON THE PRIMARY CLINICAL RECORDS. [employer] [facility]. provides no warranty or guarantee of the accuracy or completeness of information in this document.
--- NOTE | 2024-08-10 07:50 | P.HP_ITS ---
HPI H&P: HPI History of Present Illness Chief complaint: AMS, HALLUCINATIONS Narrative: Patient well-known to me from the office and previous hospitalizations, had acute episode of delirium at home, not as bad as his previous episode but still with significant paranoid hallucinations, this morning still not oriented, did not know where he was at or his name or recall my name, he did recall my profession but this is a definite change from his baseline dementia when seen in the office within the last 2 weeks Opioid HPI Opioid Management Most Recent Pain and Opioid Data: Last Pain Assessment 08/10/24 06:00 Last ORT Total Score 0 08/10/24 02:11 08/10/24 Last ORT Risk Category Low Risk 08/10/24 02:11 08/10/24 Ur Phencyclidine Scrn Negative (NEGATIVE) 08/10/24 01:35 07/22 07/14 Review of Systems ROS Status of ROS 10 or more systems reviewed and unremark able except as noted in history and below PFSH PFS Medical History (Updated 08/10/24 @ 08:06 by Jae Cruz MD) Acute delirium ?R41.0 - Disorientation, unspecified (ICD-10) Altered mental status ?R41.82 - Altered mental status, unspecified (ICD-10) Combative behavior ?R46.89 - Other symptoms and signs involving appearance and behavior (ICD-10) Dementia without behavioral disturbance ?F03.90 - Unspecified dementia, unspecified severity, without behavioral disturbance, psychotic disturbance, mood disturbance, and anxiety (ICD-10) Altered mental status ?R41.82 - Altered mental status, unspecified (ICD-10) GERD (gastroesophageal reflux disease) ?K21.9 - Gastro-esophageal reflux disease without esophagitis (ICD-10) Surgical History (Updated 07/02/24 @ 18:15 by Nicole Link) History of colostomy reversal ?Z98.890 - Other specified postprocedural states (ICD-10) H/O hernia repair ?Z98.890 - Other specified postprocedural states (ICD-10) ?Z87.19 - Personal history of other diseases of the digestive system (ICD-10) Family History (Updated 07/02/24 @ 18:16 by Nicole Link) Sister Family history of cancer Family history of diabetes mellitus Family history of hypertension Family history of stroke Mother Family history of diabetes mellitus Family history of hypertension Social History (Updated 07/02/24 @ 18:18 by Nicole Link) Within the past year, how often did you have a drink containing alcohol: never Score interpretation: A score less than 4 is consistent with normal alcohol consumption. Smoking status: Never smoker Non-prescribed substance use: denies use Previous occupational history: unemployed Highest level of school completed/degree received: Associate degree: academic program Are you now , , , , never or living with a partner: Little interest or pleasure in doing things: not at all Feeling down, depressed, or hopeless: not at all Meds Home Medications and Allergies Home Medications ?Medication ?Instructions ?Recorded ?Confirmed ?Type donepezil 5 mg tablet 5 mg PO .qhs 07/02/24 08/09/24 History divalproex 125 mg capsule,delayed 500 mg PO Q12H 08/09/24 08/09/24 History release sprinkle duloxetine 20 mg capsule,delayed 20 mg PO DAILY 08/09/24 08/09/24 History release quetiapine 50 mg tablet 50 mg PO DAILY 08/09/24 08/10/24 History melatonin 3 mg capsule 3 mg PO DAILY 08/10/24 08/10/24 History quetiapine 150 mg tablet 150 mg PO .QHS 08/10/24 08/10/24 History Allergies Allergy/AdvReac Type Severity Reaction Status Date / Time No Known Drug Allergies Allergy Verified 08/09/24 23:17 Exam Constitutional Vital Signs, click to edit/add: Last Vital Signs Temp 97 F L 08/10/24 04:00 Pulse 62 08/10/24 06:25 Resp 16 08/10/24 06:25 BP 112/75 08/10/24 06:25 Pulse Ox 97 08/10/24 06:25 O2 Del Method Room Air 08/10/24 06:25 Documenting provider has reviewed patient's vital signs: yes Common normals: apparent distress (Anxious due to disorientation) Chest Common normals: inspection of chest normal Respiratory Common normals: normal respiratory effort and no retractions Cardio Common normals: regular rate and regular rhythm GI Common normals: Normal to inspection, nondistended, normoactive bowel sounds present Neuro Common normals: CN's II-XII intact bilaterally, moves all extremities, no focal motor deficits and no sensory deficits noted; not oriented x3 (Pale to all 3) Results Labs Labs: Short CBC 08/09/24 08/10/24 Range/Units 23:35 05:20 WBC 4.0 5.5 (4.0-11.0) 10^3/uL Hgb 13.2 L 12.8 L (14.0-18.0) g/dL Hct 42.3 39.8 L (42.0-54.0) % Plt Count 93 L 98 L (150-450) 10^3/uL BMP 08/09/24 08/10/24 23:35 05:20 Sodium 141 142 Potassium 4.3 4.0 Chloride 106 107 Carbon Dioxide 30.8 27.6 BUN 35.0 H 26.0 H Creatinine 1.10 0.87 Glucose 98 132 H Calcium 8.2 L 7.7 L Liver Function 08/09/24 08/10/24 Range/Units 23:35 05:20 Total Bilirubin 0.2 0.4 (0.2-1.0) mg/dL AST 14 L 25 (15-37) U/L ALT 24 22 (16-63) U/L Alkaline Phosphatase 55 51 (46-116) U/L Albumin 3.0 L 2.7 L (3.4-5.0) g/dL Urine 08/10/24 Range/Units 01:35 Urine Color Yellow (YELLOW) Urine Clarity Clear (CLEAR) Urine pH 7.0 (5.0-9.0) Ur Specific [place] 1.015 (1.005-1.025) Urine Protein Negative (NEG/TRACE) mg/dL Urine Glucose (UA) Negative (NEGATIVE) mg/dL ABG ABG results: 08/09/24 23:25 VBG pH 7.389 VBG pCO2 50.6 Assessment and Plan Assessment and Plan (1) Delirium: (2) Altered mental status: (3) Hallucinations: (4) Dementia: Plan Admission findings: Mildly acute elevation in his TSH, not likely resulting in his findings of acute delirium with baseline dementia. Acute delirium with significant hallucinations, with baseline dementia-will adjust medications this morning, increase his Seroquel to 50 mg in the morning 50 mg in the afternoon and 200 mg at at bedtime, increase Cymbalta to 30 mg and increase Aricept to 10, maintain patient in the ICU for patient safety, in the past has had adverse reactions to IV Valium, Haldol, Geodon. Check Depakote level. If needed for sedation, could consider morphine or Dilaudid Hypothyroidism-add Synthroid Insomnia-continue with melatonin and medications as outlined above Admission status: Patient with acute delirium, medications adjusted last night without significant improvement in overall symptoms. Medically necessary simone tment will span 2 midnights. Inpatient status.
[2024-08-10] MEDS: QUETIAPINE FUMARATE 25 MG TABLET 50 MG PO ×2 (08:23→12:55)
[2024-08-10] MEDS: DIVALPROEX SODIUM 125 MG CAP.DR.SPR 500 MG PO ×2 (08:25→21:03)
[2024-08-10] MEDS: DULOXETINE HCL 30 MG CAPSULE.DR PO (08:27)
[2024-08-10 08:31] LABS: Valproic Acid 76.5 ug/mL (50.0-100.0)
--- NOTE | 2024-08-10 10:05 | SWNOTE1 ---
SW met with pt, pt's , and pt's sister in room. Pt was resting in bed, gave permission to speak with , he voiced she talks a lot. SW spoke with pt's and sister in regards to the discharge plan and how everything went at [facility] when he was transferred. Pt's sister did most of the talking during conversation. She stated when at [place] they appealed his discharge as they were told by the neurologist that pt needed to go to rehab at a facility that specializes in TBI. [facility] attempted a few places, [facility], but nobody would accept. She stated they appealed dc, but Medicare decided he was stable for dc and no further care needed. Pt's sister voiced he has been doing well for 2-2 1/2 weeks, but then became more irritated and has been maniac for 24 hours as he has not slept. She stated that the doctor is going to adjust medications and keep over night and if it goes well, then discharge tomorrow. Pt's and sister voice no needs at discharge at this time. SW to follow as needed.
--- NOTE | 2024-08-10 10:12 | SWNOTE1 ---
Important Message from [employer] reviewed and discussed with patient's and sister. Pt's and sister verbalized understanding and pt's signed the form. Original given to patient's and copy placed in patient?s chart.
[2024-08-10 15:30] LABS: Glucometer 100 mg/dL (74-106)
[2024-08-10] MEDS: MELATONIN 1 MG PO (17:59)
[2024-08-10] MEDS: [UNRECOGNIZED DRUG - OTHER] PO (17:59)
[2024-08-10] MEDS: QUETIAPINE FUMARATE 100 MG TABLET 200 MG PO (21:02)
[2024-08-10] MEDS: DONEPEZIL HCL 10 MG TABLET PO (21:03)
--- NOTE | 2024-08-10 23:06 | PC.NURSE ---
he swears and yells to call police when I enter the room. door remains open to the room and light is on where I can visualize his sitting on chair next to him dangling at the edge of the bed. he is speaking softer and remaining calmer with only her in the room at this time.
[2024-08-11 08:00] VITALS: BP 113/77; TEMP 36.8
--- NOTE | 2024-08-11 08:03 | P.DS_ITS ---
DS: Providers Provider Date of admission: 08/10/24 08:02 Primary care physician: Jae Cruz MD DS: Diagnosis Discharge Diagnosis (1) Delirium: (2) Altered mental status: (3) Hallucinations: (4) Dementia: (5) Dementia without behavioral disturbance: Plan Admission findings: Mildly acute elevation in his TSH, not likely resulting in his findings of acute delirium with baseline dementia. Acute delirium with significant hallucinations, with baseline dementia-will adjust medications this morning, increase his Seroquel to 50 mg in the morning 50 mg in the afternoon and 200 mg at at bedtime, increase Cymbalta to 30 mg and increase Aricept to 10, maintain patient in the ICU for patient safety, in the past has had adverse reactions to IV Valium, Haldol, Geodon. Check Depakote level. If needed for sedation, could consider morphine or Dilaudid Hypothyroidism-add Synthroid Insomnia-continue with melatonin and medications as outlined above Admission status: Patient with acute delirium, medications adjusted last night without significant improvement in overall symptoms. Medically necessary treatment will span 2 midnights. Inpatient status. ? DS: Summary Time Spent with Patient Time attestation: Total time spent providing and/or coordinating discharge services: Exam Constitutional Vital Signs, click to edit/add: Last Vital Signs Temp 97.8 F 08/10/24 19:51 Pulse 68 08/10/24 19:51 Resp 14 08/11/24 00:00 BP 102/77 08/10/24 19:51 Pulse Ox 98 08/10/24 20:00 O2 Del Method Room Air 08/10/24 20:00 DS: Data Data Completed and Pending Labs on day of discharge: Labs from last 24 hours 08/10/24 08/10/24 15:27 05:20 Valproic Acid 76.5 POC Glucose 100 Discharge Plan Discharge Disposition: Home, Self-Care Condition: Serious Discharge Medications: New donepezil 10 mg Tablet 10 mg PO QHS Qty: 30 11RF duloxetine 30 mg Capsule,Delayed Release(Dr/Ec) 30 mg PO DAILY Qty: 30 11RF quetiapine [Seroquel] 200 mg tablet 200 mg PO .qhs Qty: 30 11RF quetiapine [Seroquel] 50 mg tablet 50 mg PO BID MDD 1 in am and 1 after lunch Qty: 60 11RF Rx Instructions: 1 in am and 1 after lunch melatonin 10 mg capsule 10 mg PO DAILY Qty: 30 11RF Continued divalproex 125 mg capsule, delayed rel sprinkle 500 mg PO Q12H quetiapine 50 mg tablet 50 mg PO DAILY Rx Instructions: 50 mg in morning 150mg at bedtime Discontinued donepezil 5 mg tablet 5 mg PO .qhs duloxetine 20 mg capsule,delayed release(DR/EC) 20 mg PO DAILY quetiapine 150 mg tablet 150 mg PO .QHS melatonin 1 mg tablet 1 mg PO DAILY Rx Instructions: FLAVCITY SLEEP SUPPORT:JUJUBE FRUIT 11 MG, CHAMOMILE EXTRACT 11 MG, L-TRYPTOPHAN- 14 MG, NICOLE POWDER 14 MG AND PHTYOMELATONIN 1 MG GUMMIES Print Language: Occitan Forms: Portal Instructions
[2024-08-11] MEDS: DULOXETINE HCL 30 MG CAPSULE.DR PO (08:24)
[2024-08-11] MEDS: DIVALPROEX SODIUM 125 MG CAP.DR.SPR 500 MG PO (08:24)
[2024-08-11] MEDS: LEVOTHYROXINE SODIUM 25 MCG TABLET PO (08:24)
[2024-08-11] MEDS: QUETIAPINE FUMARATE 25 MG TABLET 50 MG PO (08:24)
--- NOTE | 2024-08-14 14:28 | CM.DCFOLLOWU ---
Person spoke with: How are you feeling? He is still having hallucinations How is your pain? No pain Did you understand your discharge instructions? Yes, I called Dr. Cruz today and he increased the medications again Do you have any questions about your discharge instructions? No Were you given any prescriptions at discharge? Yes Were you able to get your prescriptions filled? Yes Do you understand how to take your medications as ordered? Yes Do you have any questions about your follow up appointment and do you plan to keep your follow up appointment? No we have been in contact with Dr. Cruz and also have f/u appt scheduled Is there anything else that you would like to discuss? No Questions/Comments/Concerns/Other:
== END 2024-08-11 12:13 | disposition home or self-care (01) ==
LOC: ER 08-10 00:46 → ICU 08-10 06:46
PROVIDERS: Registered Nurse; Admitting Provider Internal Medicine; Emergency Provider Emergency Medicine; PCP Family Medicine; Visit Provider Internal Medicine
DX: R41.0 Disorientation, unspecified (principal); Z87.820 Personal history of traumatic brain injury; F03.90 Unspecified dementia, unspecified severity, without behavioral disturbance, psychotic disturbance, mood disturbance, and anxiety; N17.9 Acute kidney failure, unspecified; R44.2 Other hallucinations; Z79.899 Other long term (current) drug therapy; E03.9 Hypothyroidism, unspecified; G47.00 Insomnia, unspecified
CPT/HCPCS: 36415; 70450; 71045; 80053; 80164; 80307; 80320; 81001; 82800; 83735; 84439; 84443; 84484; 85025; 87086; 93005; 94761; 96361; 96374; 99285; G0378; J3360

== ENCOUNTER 2024-08-25 08:25 | Emergency (ER) | payer OTHER, SELFPAY ==
[2024-08-25 08:28] VITALS: BP 110/87; PULSE 61; TEMP 36.6; O2SAT 97; BMI 62.2
--- OUTSIDE RECORDS SUMMARY | 2024-08-25 08:43 | XMS_ITS | CCD ---
Author Organization [facility] CliniSyme Care Team Providers Care Seam Stayer Name Role Phone NAYA IZAGUIRRE Admitting Unavailable HOY JAE Primary Care Unavailable JOHN JAE Referring Unavailable WILLAM IZAGUIRREIN Attending Unavailable [place] Procedure Practitioner Unavailab WILLAM WolfIN Surgeon Unavailable KATIA LOPEZLAS Primary Care Unavailable SELF, REFERRED Referring Unavailable IZAGUIRREWILLAMIN Attending Unavailable IZAGUIRRE JIASULTANAIN Admitting Unavailable TX Procedure Practitioner Unavailab ludy IZAGUIRRE JIASULTANAIN Surgeon [...] Care Physician MD Danni Graham Attending Provider [phone] MD Jae Lopez Primary Care Provider MAITE [...] Unavailable Jae Lopez MD Primary Care Provider [phone] Danni Graham M. Attending Unavailable Lue, Danni M. Attending Unavailable Hoy, Jae Referring Unavailable Lue, Danni M. Attending Unavailable Lue, Danni M. Admitting Unavailable Lue, Danni M. Referring Unavailable Lue, Danni M. Attending Unavailable ALF, NICHOL M Admitting Unavailable ALF, NICHOL Chidi Attending Unavailable HOY, JAE M Referring Unavailable [...] Unavailable HOY, JAE M Primary Care Unavailable Lue, Danni M Admitting Unavailable Lue, Danni M Attending Unavailable Hoy, Jae M Primary Care Unavailable Rosa, Elliott Admitting Unavailab le Rosa, Elliott Attending Unavailab le Hoy, Jae M Primary Care Unavailable FIDELINA FISHER Attending Unavailable Allergies Allergy Classification Reported Allergen(s) Allergy Type Date of Onset Reaction(s) Facility (1 source) 42415,00 Drug allergy (disorder) 9 [facility] Repository (4 sources) diphenhydrAMINE ; Translations: [DIPHENHYDRAMIN E] Drug Allergy 5 Abnormal Behavior [facility] Repository (1 source) No Known Medication Allergies; Translations: [No Known Medication Allergies] Propensity to adverse reactions (disorder) [facility] Repository Medications Current Medications Medication Drug Class(es) Dates Sig (Normalized) Sig (Original) acetaminophen 325 mg oral tablet (6 sources) Start: 07-06-2024 End: 07-20-2024 take 1 tablet by mouth every four hours as needed for headache 650 mg, oral, Every 4 hours PRN, headaches, Temperature greater than 38.3 C, Starting on Tue07/20/24 at 1249, [Warning: Total Acetaminophen not to exceed more than 4 grams (4000 mg) in 24 hours] take 1 tablet by january th every six hours as needed acetaminophen (TYLENOL) 500 mg tablet Ta ke 500 mg by mouth every 6 hours as needed. Active acetaminophen 325 mg / oxyCODONE hydrochloride 5 mg oral tablet (2 sources) Opioid Agonist End: 07-22-2024 oxyCODONE-acetaminophen (PERCOCET) 5-325 mg per tablet oxycodone-acetaminophen 5 mg-325 mg tablet 07/22/2024 Discontinued (Stop Taking at Discharge) benztropine mesylate 1 mg oral tablet (2 [...] 0 12/02/2022 04/18/2050 Active Start: 04-30-2022 End: 07-30-2024 CPAP/BIPAP/OTHER Indications : SHELBY (obstructive sleep apnea) Type .CPAPSettings into a note to see current settings/supplies/DME information. 1 Each 04/30/2022 07/30/2024 Discontinued (Duplicate Entry) Start: 04-30-2022 End: 09-14-2049 CPAP/BIPAP/OTHER Indications : [...] information. docusate sodium 50 mg / sennosides, retirement 8.6 mg oral tablet (1 source) Start : 07-06 take 1 tablet by mouth every twelve hours as needed for constipation donepezil hydrochloride 5 mg oral tablet (20 sources) Start : 08-11 End: 03-09 take 5 mg by mouth once daily 5 mg, oral, Nightly, First dose on Tue07/06/24 at 2200, Look-alike/sound- alike medication - verify indication for use. Comment on above: Take 1 tablet by january th once daily. TAKE 1 TABLET BY JANUARY TH EVERY DAY DULoxetine 20 mg delayed release oral capsule (4 sources) Serotonin and Norepinephrine Reuptake Inhibitor Start : 07-06 End: 08-20 DULoxetine (CYMBALTA) 20 mg capsule Take 20 mg by mouth. 07/21/2024 08/20/2024 Active 0.4 ml enoxaparin sodium 100 mg/ml prefilled syringe (1 source) Low Molecular Weight Heparin Start : 07-17 inject 40 mg by subcutaneous injection once daily 40 mg, subcutaneous, Daily, First dose on Tue07/17/24 at 1630, Look-alike/sound- alike medication - verify indication for use. FLUoxetine 20 mg oral capsule (2 sources) Serotonin Reuptake Inhibitor End: 07-22 take 1 capsule by mouth in the morning FLUoxetine (PROzac) 20 mg capsule Take 1 capsule (20 mg total) by mouth in the morning. 07/22/2024 Discontinued (Stop Taking at Discharge) FREESTYLE LITE METER kit (3 sources) Start : 09-08 FREESTYLE LITE METER kit 09/08/2018 Active Start: [...] / neomycin 3.5 mg/ml / polymyxin b 69225 unt/ml otic suspension (3 sources) Aminoglycoside Antibacterial, [...] (after last modification) on Tue07/20/24 at 2200 Start: 07-08-2024 End: 07-20-2024 take 5 mg by mouth once daily 5 mg, oral, Nightly, Fir st dose on Tue07/08/24 at 2200 24 hr nicotine 0.875 mg/hr transdermal system (1 source) Cholinergic Nicotinic Agonist Start: 07-06-2024 ondansetron 4 mg disintegrating oral tablet (1 source) Serotonin-3 Receptor Antagonist Start: 07-06-2024 take 1 tablet by mouth (buccal) every eight hours as needed for nausea and vomiting pantoprazole 40 mg delayed release oral tablet (1 source) Proton Pump Inhibitor Start: 07-06-2024 40 mg, oral, Every morning before breakfast, First dose on Tue07/06/24 at 0900, Look-alike/sound-al ksenia medication - verify indication for use. If patient is receiving enteral feeding, consider alternative PPI or continue IV pantoprazole until the delayed-release tablet can be taken orally, Indication: GERD prochlorperazine (COMPAZINE) injection 5 mg (1 source) Start: 07-20-2024 take 5 mg intravenously every six hours as needed prochlorperazine (COMPAZINE) injection 5 mg QUEtiapine 50 mg oral tablet (5 sources) Atypical Antipsychotic Start: 07-20-2024 QUEtiapine (SEROQUEL) 50 mg tablet Take by mouth. 07/20/2024 Active Start: 07-20-2024 take 3 tablets by mo ut once daily, then take 1 tablet by [...] Look-alike/sound-alike medication - verify indication for use. divalproex sodium 125 mg delayed release oral capsule (4 sources) Mood Stabilizer, Anti-epileptic Agent Start: 07-20-2024 End: 08-19-2024 divalproex sprinkle (DEPAKOTE SPRINKLES) 125 mg capsule Take 500 mg by mouth. 07/20/2024 08/19/2024 Active Start: 07-20-2024 End: 08-19-2024 divalproex sprinkle (DEPAKOT E SPRINKLE) 125 mg capsule Take 4 capsules [...] Inhibitor, Nonsteroidal Anti-inflammatory Drug Start: 11-26-2019 End: 07-30-2024 aspirin, enteric coated (ASPIRIN, ENTERIC COATED) 81 mg EC tablet once daily. 11/26/2019 07/30/2024 Discontinued (Course of therapy completed) Comment on above: once daily. doxycycline hyclate 100 mg oral capsule (2 sources) Tetracycline-class Drug Start: 07-20-2024 End: 07-21-2024 take 1 [...] seconds, and/or platelet count less than 100,000/mm Look-alike/sound-a like medication - verify indication for use. Observe for bleeding. memantine hydrochloride 5 mg oral tablet (18 sources) F-kaygog-S-aspartate Receptor Antagonist Start: 11-17-2022 End: 07-30-2024 take 1 tablet by mouth twice daily memantine (NAMENDA) 5 mg tablet Indications: Alzheimer's disease (HCC) Take 1 tablet by mouth twice daily. 180 tablet 1 11/18/2022 07/30/2024 Discontinued (Course of therapy completed) Comment on above: Take 1 tablet by january th twice daily. omeprazole 20 mg delayed release oral capsule (20 sources) Proton Pump Inhibitor End: 07-30-2024 omeprazole (PRILOSEC) 20 mg capsule 40 mg once daily. 07/30/2024 Discontinued (Course of therapy completed) End: 07-22-2024 take 1 capsule by mouth once daily omeprazole (PriLOSEC) 20 mg capsule Take 20 mg by mouth daily. 07/22/2024 Discontinued (Stop Taking at Discharge) End: 07-22-2024 take 1 capsule by mouth in the morning omeprazole (PriLOSEC) 40 mg capsule Take 1 capsule (40 mg total) by mouth in the morning. 07/22/2024 Discontinued (Stop Taking at Discharge) Comment on above: 40 mg once daily. oxaprozin 600 mg oral tablet (20 sources) Nonsteroidal Anti-inflammatory Drug Start: 04-14-2022 End: 07-30-2024 oxaprozin (DAYPRO) 600 mg tablet as needed. 04/14/2022 07/30/2024 Discontinued (Course of therapy completed) Comment on above: as needed. simvastatin 20 mg oral tablet (20 sources) HMG-CoA Reductase Inhibitor Start: 02-25-2022 End: 07-30-2024 simvastatin (ZOCOR) 20 mg tablet daily at bedtime. 02/25/2022 07/30/2024 Discontinued (Course of therapy completed) End: 07-22-2024 take 1 tablet by mouth once daily simvastatin (ZOCOR) 10 mg tablet Take 10 mg by mouth nightly. 07/22/2024 Discontinued (Stop Taking at Discharge) Comment on above: daily at bedtime. 125 ml sodium chloride 9 mg/ml prefilled [...] End: 07-09-2024 10 mg, intramuscular, Once, On 07/09/24 at 1445, For 1 dose, Dilute with [...] bronchitis (4 sources) Acute bronchitis 01-04-2024 Episodic Administrative/social admission (1 source) Other reduced mobility; Translations: [Other specified conditions influencing health status] 08-12-2024 Episodic Asthma (4 sources) Asthma 01-04-2024 Chronic Delirium, dementia, and amnestic and other cognitive disorders (18 sources) Alzheimer's disease; Translations: [Alzheimer's disease, unspecified] Onset: 5 Chronic Diabetes mellitus without complication (5 sources) Other abnormal glucose; Translations: [Prediabetes] Onset: 2 01-04-2024 Episodic Disorders of lipid metabolism (20 sources) Hyperlipidemia; Translations: [Hyperlipidemia, unspecified] 12-02-2022 Chronic Esophageal disorders (4 sources) Gastroesophageal reflux disease 01-04-2024 Chronic Intracranial injury (2 sources) History of traumatic brain injury; Translations: [Personal history of traumatic brain injury] 08-12-2024 Episodic Noninfectious gastroenteritis (8 sources) Acute gastroenteritis; Translations: [...] source) Colostomy status; Translations: [Colostomy status] Onset: 5 Chronic Other gastrointestinal disorders (4 sources) Perforation of small intestine 01-04-2024 Episodic Other nervous system disorders (2 sources) Other symptoms and signs involving cognitive functions and awareness; Translations: [Other signs and symptoms involving cognition] Onset: 2 05-07-2022 Episodic Other nervous system disorders (1 source) Impaired cognition; Translations: [Other symptoms and signs involving cognitive functions and awareness] 08-12-2024 Episodic Other non-traumatic joint disorders (4 sources) [...] Test Name Value Interpretation Reference Range Facility [facility] 07-30-2024 CNOV Office Visit (RBMT) NOÉ JEFFERY ([id number]) 1965 M Date Time Provider Department 07/30/24 12:40 PM FIDELINA FISHER [facility] During your visit today, we recorded the following information about you: Temperature Pulse Blood pressure Weight 97.6 degrees 84/minute 99/63 76.2 kg Fidelina Fisher, CTO.OPERATIONS AND MAINTENANCE MANAGER 08/12/2024 10:55 PM Signed July 30, 2024 Reason for visit: Patient presents with: Consult Previous Visit: No previous PMANDR. HPI (brief) Noé Jeffery is a 59 year old male. PMHx of TBI and HDL. He had an unwitnessed fall down the stairs. Per family he had a fall in May 2024. He was evaluated at [place] following the fall. Per he had an episode with agitation. Per family he was not displaying agitation prior to the fall. Family notes prior to his fall he was driving and independent with his care. He is now requiring a lot of assistance with care. Subjective: Patient presents with: Consult Family notes concerns with coordination. He has been following with brain health for his dementia. Per his family his dementia symptoms seems to have worsen following his fall. 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 Per family he had a rough admission with jalen at [facility] in [place]. He was started on Seroquel at bedtime. Neuro: -TBI: 05/2024 -Other: Dementia Function: He has been requiring assistance with ADLs and IADLs. Able to feed himself, he is a set up for grooming. -Self care: -Mobility: no assistive devices. -Gait/stairs: He does do stairs every other day to get to the shower. -Falls: Last fall was 05/2024. No falls since returning home a week ago. Weakness: Denies any muscle weakness. Pain: - Denies any pain. Balance: - Denies any balance issues. Dizziness: - Denies any dizziness. Hearing/Vision Cognition: - has underline dementia. Following with [facility]. Sleep: - He has been having issues with night terrors. notes that last night he was agitated. Bowel: Denies any concerns with bowels. Bladder: Denies any concerns with bladder. Recent labs/Imaging related to complaint: MRI BRAIN WO IVCON Findings: The high attenuation focus shown on [...] and cranio-cervical junction. Flow voids documented in [place] of [place] and dural venous sinuses. No pathologic contrast enhancement. Diffusion weighted images show no evidence for acute infarct. The deep white matter shows no acute changes. Medications Reviewed divalproex sprinkle (DEPAKOTE SPRINKLES) 125 mg capsule Take 500 mg by mouth. acetaminophen (TYLENOL) 500 mg tablet Take 500 mg by mouth every 6 hours as needed. DULoxetine (CYMBALTA) 20 mg capsule Take 20 mg by mouth. QUEtiapine (SEROQUEL) 50 mg tablet Take by mouth. donepezil (ARICEPT) 5 mg tablet take 1 tablet by mouth every day CPAP/BIPAP/OTHER Type .CPAPSettings into a note to see current settings/supplies/DM E information. OARRS reviewed to confirm/clarify any controlled medications Allergies Reviewed PAST MEDICAL HISTORY: ACTIVE PROBLEM LIST Bilateral High Frequency Sensorineural Hearing Loss Tinnitus, Bilateral Hld (Hyperlipidemia) No past surgical history on file. Social History Tobacco Use Smoking status: Never Smokeless tobacco: Never Substance Use Topics Alcohol use: Not Currently family history is not on file. Review of systems as noted, reviewed, and documented on intake section. Physical Exam: 07/30/24 1233 BP: 99/63 BP Site: Right Arm BP Position: Sitting BP Cuff Size: Large Adult Pulse: 84 Temp: 36.4 ?C (97.6 ?F) TempSrc: Temporal Weight: 76.2 kg (167 lb 15.9 oz) General: no acute distress. Awake, alert. Cardiopulmonary: unlabored breathing. Appears well perfused Abdomen: non-distended, Lower Extremities: no edema, no calf tenderness. 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 PMHx of TBI and HDL. He had an unwitnessed fall (more content not included)... Normal [facility] 07-20-2024 [facility] (NEADMN) NOÉ JEFFERY ([id number]) 1965 M Date Time Provider Department 07/20/24 [...] all declined. The family requests transfer to [facility] inpatient service for further cognitive evaluation and management. It sounds like the patient is appropriately managed thus far and has no ongoing inpatient care needs. Thus, hospital to hospital transfer is not likely to be beneficial. We discussed the 3 neurorehab centers in our network. Referring MD will confirm with child welfare caseworker that referrals were sent to all 3. If the patient is discharged home or to SNF, we can potentially expedite an appointment with our PMR colleagues/TBI multidisciplinary clinic. I will alert Drs. Aguilar and Earl to the referral. Briana Mcdermott MD Allergies As of Date: 07/20/2024 (No Known Allergies) Date Reviewed: 10/12/2022 Reviewed by: Miguelito Chicas APRN.OPERATIONS AND MAINTENANCE MANAGER - Fully Assessed Prescriptions as of 07/20/2024 [...] Encounter Status:Closed by BRIANA MCDERMOTT on 07/20/24 Normal [facility] Patient Letter FTon 2024 Patient [place] [facility] [facility] [place] July 20, 2024 NOÉ JEFFERY [address] [place] [id number] : 1965 Dear Mr. Jeffery, I am [...] Office Sincerely, Dr. Danni Graham [facility] [address] [place] [id number] Normal [facility] TANNER Virus Antibody Reflex to Inhibition Assayon 07-19-2024 Interpretation and review of laboratory results [facility] TANNER virus Ab IA Ql Positive Abnormal [facility] Comment on above: NOTE Index interpretive [...] index.(1) (1) TYSABRI(natalizumab)US Prescribing Information Performed by: [employer] [address] [place] [address] Jessenia Bagley MD, PhD, TANNER Virus Index 2.94 [facility] Comment on above: NOTE Performed by: [employer] [address] [place] [address] Jessenia Bagley MD, PhD, [facility] Marjorie 07-18-2024 CNPN Telephone (NEIND4) NOÉ JEFFERY ([id number]) 1965 M Date Time Provider Department 07/18/24 NARCISO GUERRA NEIND4 During your visit today, we recorded the following information about you: Laboy Gaby 07/18/2024 9:22 AM Signed Patient returned your call and can be reached at: Call patient at: on cell [phone] (home) [phone] (cell) Abbey Amato MA 07/18/2024 11:23 AM Signed Patient mailbox is full unable to leave message Nica Holland RN 07/19/2024 12:42 PM S[address] Spoke with Dr Harmon (sp?) from [facility] regarding patient. Family is requesting transfer to a [facility] TBI center, inpatient. I advised that Dr Guerra cannot assist in this matter. Marichuy Roca, RN 07/20/2024 3:19 PM Addendum Spoke to , Kari. Pt is currently at [facility]. Pt is being denied an admit to rehab facility. I am unable to view notes from that hospital. Suggestion given to [facility] as [facility] does not have a TBI clinic. Family will have to work with staff at [facility]. Verbalized understanding. Allergies As of Date: 07/18/2024 (No Known Allergies) Date Reviewed: 10/12/2022 Reviewed by: Miguelito Chicas APRN.OPERATIONS AND MAINTENANCE MANAGER - Fully Assessed Reason for Visit: Patient Question [0837] Prescriptions as of 07/20/2024 - donepezil (ARICEPT) [...] Status:Closed by MARICHUY ROCA on 07/20/24 Normal [facility] BASIC METABOLIC PANLon 07-17 Anion gap [Moles/Vol] 4 mmol/L Low 5-15 [facility] Comment on above: Performed By: #### T HYR, CBC, BMP, 2776-06, 87781-1 #### [facility] ([id number]) [address], [address] [place] [address] Calcium [Mass/Vol] 8.8 mg/dL Normal 8.5-10.5 [facility] Comment on above: Performed By: #### T HYR, CBC, BMP, #### [facility] ([id number]) [address], [address] [place] [address] Chloride [Moles/Vol] 104 mmol/L Normal 98-109 [facility] Comment on above: Performed By: #### T HYR, CBC, BMP, #### [facility] ([id number]) [address], [address] [place] [address] CO2 [Moles/Vol] 33 mmol/L High 22-32 [facility] Comment on above: Performed By: #### T HYR, CBC, BMP, 2776-06, #### [facility] ([id number]) [address] [address] Creatinine [Mass/Vol] 0.95 mg/dL Normal 0.60-1.30 [facility] Comment on above: Result Comment: METH OD TRACEABLE TO IDMS STANDARD Performed By: #### T HYR, CBC, BMP, 2776-06, #### [facility] ([id number]) [address] [address] eGFR (CKD-EPI) NON-RACE DEPENDENT >90 Normal >59 [facility] Comment on above: Result Comment: Reported eGFR is based on the CKD-EPI 2020 equation that does not use a race coefficient. Performed By: #### T HYR, CBC, BMP, 2776-06, #### [facility] ([id number]) [address] [address] Glucose [Mass/Vol] 97 mg/dL Normal 65-99 [facility] Comment on above: Performed By: #### T HYR, CBC, BMP, 2776-06, #### [facility] ([id number]) [address] [address] Potassium [Moles/Vol] 4.3 mmol/L Normal 3.5-5.0 [facility] Comment on above: Performed By: #### T HYR, CBC, BMP, 2776-06, #### [facility] ([id number]) [address] [address] Sodium [Moles/Vol] 141 mmol/L Normal 134-146 [facility] Comment on above: Performed By: #### T HYR, CBC, BMP, 2776-06, #### [facility] ([id number]) [address] [address] [address] [place] [address] Urea nitrogen [Mass/Vol] 20 mg/dL Normal 5-23 [facility] Comment on above: Performed By: #### T HYR, CBC, BMP, 2776-06, #### [facility] ([id number]) [address], [address] [place] [address] Basic Metabolic Panelon 06-21 Anion gap [Moles/Vol] 4 mmol/L Low 5 - 15 mmol/L [facility] Calcium [Mass/Vol] 8.8 mg/dL 8.5 - 10. 5 mg/dL [facility] Chloride [Moles/Vol] 104 mmol/L 98 - 10 9 mmol/L [facility] CO2 [Moles/Vol] 33 mmol/L High 22 - 32 mmol/L [facility] Creatinine [Mass/Vol] 0.95 mg/dL 0.60 - 1.30 mg/dL [facility] Comment on above: METHOD TRACEABLE TO IDAZ STANDARD eGFR (CKD-EPI)non-race dependent - PINF [facility] Comment on above: Reported eGFR is based on the CKD-EPI 2020 equation that does not use a race coefficient. Glucose [Mass/Vol] 97 mg/dL 65 - 99 mg/dL [facility] Interpretation and review of laboratory results Abnormal [facility] Potassium [Moles/Vol] 4.3 mmol/L 3.5 - 5.0 mmol/L [facility] Sodium [Moles/Vol] 141 mmol/L 134 - 146 mmol/L [facility] Urea nitrogen [Mass/Vol] 20 mg/dL 5 - 23 mg/dL [facility] CBC AND AUTO DIFFon 07-17-19 ABSOLUTE BASOPHIL 0.0 X10E9/L Normal 0.0-0.2 [facility] Comment on above: Performed By: #### T HYR, CBC, BMP, 2776-06, #### [facility] ([id number]) [address], [address] [place] [address] ABSOLUTE NEUTROPHIL 2.5 X10E9/L Normal 1.5-6.6 [facility] Comment on above: Performed By: #### T HYR, CBC, BMP, 2776-06, #### [facility] ([id number]) [address], [address] [place] [address] Basophils/100 WBC (Bld) 0.6 % Normal [facility] Comment on above: Performed By: #### T HYR, CBC, BMP, 2776-06, #### [facility] ([id number]) [address], [facility] [address] [place] [address] Eosinophils (Bld) [#/Vol] 0.1 10*3/uL Normal 0.0-0.4 [facility] Comment on above: Performed By: #### T HYR, CBC, BMP, 2776-06, #### [facility] ([id number]) [address], [address] [place] [address] Eosinophils/100 WBC (Bld) 1.9 % Normal [facility] Comment on above: Performed By: #### T HYR, CBC, BMP, 2776-06, #### [facility] ([id number]) [address], [address] [place] [address] Erythrocyte distribution width (RBC) [Ratio] 15.8 % High 11.5-15.0 [facility] Comment on above: Performed By: #### T HYR, CBC, BMP, 2776-06, #### [facility] ([id number]) [address], [address] [place] [address] Hematocrit (Bld) [Volume fraction] 41.8 % Normal 39-49 [facility] Comment on above: Performed By: #### T HYR, CBC, BMP, 2776-06, #### [facility] ([id number]) [address], [address] [place] [address] Hemoglobin (Bld) [Mass/Vol] 13.9 g/dL Normal 13.0-17.0 [facility] Comment on above: Performed By: #### T HYR, CBC, BMP, 2776-06, #### [facility] ([id number]) [address], [facility] [address] [place] [address] Lymphocytes (Bld) [#/Vol] 1.2 10*3/uL Normal 1.0-3.5 [facility] Comment on above: Performed By: #### T HYR, CBC, BMP, 2776-06, #### [facility] ([id number]) [address], [facility] [address] [place] [address] Lymphocytes/100 WBC (Bld) 29.7 % Normal [facility] Comment on above: Performed By: #### T HYR, CBC, BMP, 2776-06, #### [facility] ([id number]) [address], [facility] [address] [place] [address] MCH (RBC) [Entitic mass] 25.1 pg Low 27-34 [facility] Comment on above: Performed By: #### T HYR, CBC, BMP, 2776-06, #### [facility] [facility] ([id number]) [address], [facility] [address] [place] [address] MCHC (RBC) [Mass/Vol] 33.2 g/dL Normal 32-36 [facility] Comment on above: Performed By: #### T HYR, CBC, BMP, 2776-06, #### [facility] ([id number]) [address], [address] [place] [address] MCV (RBC) [Entitic vol] 76 fL Low 80-100 [facility] Comment on above: Performed By: #### T HYR, CBC, BMP, 2776-06, #### [facility] ([id number]) [address], [address] [place] [address] Monocytes (Bld) [#/Vol] 0.3 10*3/uL Normal 0-0.9 [facility] Comment on above: Performed By: #### T HYR, CBC, BMP, 2776-06, #### [facility] ([id number]) [address], [address] [place] [address] Monocytes/100 WBC (Bld) 8.2 % Normal [facility] Comment on above: Performed By: #### T HYR, CBC, BMP, 2776-06, #### [facility] ([id number]) [address], [address] [place] [address] Neutrophils/100 WBC (Bld) 59.6 % Normal [facility] Comment on above: Performed By: #### T HYR, CBC, BMP, 2776-06, #### [facility] ([id number]) [address], [address] [place] [address] Platelet mean volume (Bld) [Entitic vol] 7.7 fL Normal 7-12 [facility] Comment on above: Performed By: #### T HYR, CBC, BMP, 2776-06, #### [facility] ([id number]) [address], [address] [place] [address] Platelets (Bld) [#/Vol] 180 10*3/uL Normal 150-450 [facility] Comment on above: Performed By: #### T HYR, CBC, BMP, 2776-06, #### [facility] ([id number]) [address], [address] [place] [address] RBC COUNT 5.54 X10E12/L Normal 4.10-5.70 [facility] Comment on above: Performed By: #### T HYR, CBC, BMP, 2777-1, 75069-1 #### [facility] ([id number]) [address], [address] [place] [address] WBC (Bld) [#/Vol] 4.1 10*3/uL Normal 4.0-11.0 [facility] Comment on above: Performed By: #### T HYR, CBC, BMP, 2777-1, 61995-0 #### [facility] ([id number]) [address] [facility] [facility] [place] [address] CBC auto differentialon 06-21 Basophils (Bld) [#/Vol] 0 10*3/uL [facility] Basophils/100 WBC (Bld) 0.6 % [facility] Eosinophils (Bld) [#/Vol] 0.1 10*3/uL [facility] Eosinophils/100 WBC (Bld) 1.9 % [facility] Erythrocyte distribution width (RBC) [Ratio] 15.8 % High 11.5 - 15.0 % [facility] Hematocrit (Bld) [Volume fraction] 41.8 % 39 - 49 % [facility] Hemoglobin (Bld) [Mass/Vol] 13.9 g/dL 13.0 - 17.0 g/dL [facility] Interpretation and review of laboratory results Abnormal [facility] Lymphocytes (Bld) [#/Vol] 1.2 10*3/uL [facility] Lymphocytes/100 WBC (Bld) 29.7 % [facility] MCH (RBC) [Entitic mass] 25.1 pg Low 27 - 34 pg [facility] MCHC (RBC) [Mass/Vol] 33.2 g/dL 32 - 3 6 g/dL [facility] MCV (RBC) [Entitic vol] 76 fL Low 80 - 100 fL [facility] Monocytes (Bld) [#/Vol] 0.3 10*3/uL [facility] Monocytes/100 WBC (Bld) 8.2 % [facility] Neutrophils (Bld) [#/Vol] 2.5 10*3/uL [facility] Neutrophils/100 WBC (Bld) 59.6 % [facility] Platelet mean volume (Bld) [Entitic vol] 7.7 fL 7 - 12 fL [facility] Platelets (Bld) [#/Vol] 180 10*3/uL [facility] RBC (Bld) [#/Vol] 5.54 10*6/uL [facility] WBC corrected for nucl RBC Auto (Bld) [#/Vol] 4.1 [facility] CNPNon 07-17-2024 CNPN Telephone (NEIND4) NOÉ JEFFERY ([id number]) 1965 M Date Time Provider Department 07/17/24 NARCISO GUERRA NEIND4 During your visit today, we recorded the following information about you: Gaby Laboy 07/17/2024 2:37 PM Signed [facility] help with getting [facility] Please call pts [phone] Nica Holland RN 07/18/2024 8:58 AM Signed -LVMTCB We are unable to assist in this matter. Pt last seen 04/2022 Allergies As of Date: 07/17/2024 (No Known Allergies) Date Reviewed: 10/12/2022 Reviewed by: Miguelito Chicas, SYD.OPERATIONS AND MAINTENANCE MANAGER - Fully Assessed Reason for Visit: Patient Question [5717] Prescriptions as of 07/18/2024 - donepezil (ARICEPT) [...] Status:Closed by NICA HOLLAND on 07/18/24 Normal [facility] Encephalopathy - Autoimmune RUSSELL Cheneyon 07-17-2024 Encephalopathy autoimmune Ab panel (CSF) SEE COMMENTS 07/17/2024 05:00 PM [facility] Comment on above: NOTE Test Result Flag [...] characteristics determined by [facility] in a manner consistent with CLIA requirements. This test has not been cleared or approved by the U.S. Food and Drug Administration. Amphiphysin Ab, CSF Negative Negative ADDITIONAL INFORMATION This test was developed and its performance characteristics determined by [facility] in a manner consistent with CLIA requirements. This test has not been cleared or approved by the U.S. Food and Drug Administration. LETYA-1, CSF Negative Negative ADDITIONAL INFORMATION This test was developed and its performance characteristics determined by [facility] in a manner consistent with CLIA requirements. This test has not been cleared or approved by the U.S. Food and Drug Administration. MARKEL-1, CSF Negative Negative ADDITIONAL INFORMATION This test was developed and its performance characteristics determined by [facility] in a manner consistent with CLIA requirements. This test has not been cleared or approved by the U.S. Food and Drug Administration. MARKEL-2, CSF Negative Negative ADDITIONAL INFORMATION This test was developed and its performance characteristics determined by [facility] in a manner consistent with CLIA requirements. This test has not been cleared or approved by the U.S. Food and Drug Administration. MARKEL-3, CSF Negative Negative ADDITIONAL INFORMATION This test was developed and its performance characteristics determined by [facility] in a manner consistent with CLIA requirements. This test has not been cleared or approved by the U.S. Food and Drug Administration. CASPR2-IgG CBA, CSF Negative Negative ADDITIONAL INFORMATION This test was developed and its performance characteristics determined by [facility] in a manner consistent with CLIA requirements. This test has not been cleared or approved by the U.S. Food and Drug Administration. CRMP-5-IgG, CSF Negative Negative ADDITIONAL INFORMATION This test was developed and its performance characteristics determined by [facility] in a manner consistent with CLIA requirements. This test has not been cleared or approved by the U.S. Food and Drug Administration. DPPX Ab CBA, CSF Negative Negative ADDITIONAL INFORMATION This test was developed and its performance characteristics determined by [facility] in a manner consistent with CLIA requirements. This test has not been cleared or approved by the U.S. Food and Drug Administration. NICOLE-B-R Ab CBA, CSF Negative Negative ADDITIONAL INFORMATION This test was developed and its performance characteristics determined by [facility] in a manner consistent with CLIA requirements. This test has not been cleared or approved by the U.S. Food and Drug Administration. GAD65 Ab Assay, CSF 0.00 nmol/L <= 0.02 ADDITIONAL INFORMATION This test was developed and its performance characteristics determined by [facility] in a manner consistent with CLIA requirements. This test has not been cleared or approved by the U.S. Food and Drug Administration. GFAP IFA, CSF Negative Negative ADDITIONAL INFORMATION This test was developed and its performance characteristics determined by [facility] in a manner consistent with CLIA requirements. This test has not been cleared or approved by the U.S. Food and Drug Administration. mGluR1 Ab IFA, CSF (more content not included)... Encephalopathy autoimmune Ab panel (CSF)on 07-17-2024 [facility] MAGNESIUMon 07-17-2024 Magnesium [Mass/Vol] 2.2 mg/dL Normal 1.8-2.6 [facility] Comment on above: Performed By: #### T HYR, CBC, BMP, 2777-1, 53731-9 #### [facility] ([id number]) [address] [facility] [facility] [place] [address] Magnesiumon 07-17-2024 Magnesium [Mass/Vol] 2.2 mg/dL 1.8 - 2 .6 mg/dL [facility] No Panel Informationon 07-17 [facility] Bacteria identified Cx Nom ( CSF)on 07-15-2024 Microscopic observation Gram stain Nom (Unsp spec) WHITE BLOOD CELLS PRESENT [facility] Microscopic observation Gram stain Nom (Unsp spec) NO ORGANISMS SEEN [facility] Microscopic observation Gram stain Nom (Unsp spec) ON CONCENTRATED SMEAR [facility] Service comment (Unsp spec) [Interp] NO GROWTH 5 DAYS [facility] Flow Cytometry CSFon 025 Flow cytometry specialist review Ramone (Unsp spec) [Interp] SEE SEPARATE REPORT, REVIEWED BY PATHOLOGIST [facility] Flow cytometry specialist re view Ramone (Unsp spec) [Interp]on 2024 [facility] Lyme FIREBRICK LAYER HELPER Infection IgG w/ An tibody Index Reflex, CSF and Serumon 07-13-2024 Pathologist interpretation (Bld) [Interp] See Note [facility] Comment on above: NOTE No antibodies [...] characteristics determined by [facility] in a manner consistent with CLIA requirements. This test has not been cleared or approved by the U.S. Food and Drug Administration. Reference Lab Test ID Negative Negative [facility] Reference Lab Test ID See Note [facility] Comment on above: NOTE CSF screen was negative for IgG-class antibodies to Lyme Borrelia species. Testing for IgG-class antibodies to Borrelia in serum is not indicated and was not performed. Test Performed by: [facility] [address] [place] [address] Expediter: Eduardo Clark Ph.D.; CLIA# [id number] [facility] Cytologyon 07-11-2024 [facility] [address] [place] [address] Cytology Consultation Patient Name:NOÉ JEFFERY:1965 (Age: 58)Gender:MTaken:06/21Reported:2024 16:49Physician(s):Shun Haley M.D. ([phone])Copy To:Quinton Harrell M.D. Rec. #:[id number]: #[id number] Final Cytologic Diagnosis Cerebrospinal fluid: No malignant cells identified. gr07/11/2024 Interpretation performed at [facility], [address] [place] [address], License number: [id number].Electro nically Signed Out By Derick Lorenz MD Additional Report(s): Flow Cytometry-Surg/BM/NG Date Reported: 07/13/2024 No flow cytometric abnormalities. The specimen is hypocellular with a sparse lymphoid component. Immunophenotypic analysis of the lymphoid cells demonstrates a mixed population of few phenotypically unremarkable T-cells and polyclonal B-cells. No monoclonal lymphoid population is detected. Immunophenotyping antibodies tested: CD3, CD4, CD5, CD7, CD8, CD19, CD20, CD45, Avinger, and Lambda. Immunophenotyping Comment: Immunophenotyping has been used in this diagnostic evaluation. This test was developed and its performance characteristics determined by the [facility] Department. It has not been [...] perform high-complexity clinical testing. Interpretation performed at [facility], [address] [place] [address], License number: [id number]. 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 Also received is one cytospin slide from Hematology. Source of Specimen Cerebrospinal fluid Non FUR OPERATOR ThinPrep, Cytospin Slide Fee Code(s): 1; 20137, 32620 [facility] IgG synthesis rate Calc (S+C SF) [Mass/Time]on 07-11-2024 CSF IgG Index Profile SEE COMMENTS 07/11/2024 12:55 PM [facility] Comment on above: NOTE Test Result Flag [...] mg/dL 3500 - 5000 Test Performed by: [facility] [address] [place] [address] Expediter: Eduardo Clark Ph.D.; CLIA# [id number] Test Performed by: [facility] [address] [place] [address] Expediter: Eduardo Clark Ph.D.; CLIA# [id number] [facility] Reagin Ab VDRL Ql (CSF)on [facility] VDRL, Spinal Fluidon 025 Reagin Ab VDRL Ql (CSF) Negative Negative [facility] Comment on above: NOTE Test Performed by: [facility] [address] [id number] Expediter: Eduardo Clark Ph.D.; CLIA# [id number] 14-3-3 Protein Tau, Total, C SFon 07-10-2024 Creutzfeldt-Osei Disease SEE NOTE Normal [facility] Comment on above: Result Comment: [...] thorough examination of autopsy brain tissue. The [facility] is able to offer a no-cost autopsy for this patient. Autopsy can help to delineate whether prion disease is sporadic, acquired or genetic in etiology. [facility] staff ([phone]) are available to work with healthcare providers and the patient's family to plan an autopsy, if desired. Reviewed and Approved By: Tia Weinberg, PhD Performed By: [place] [address] Performed By: #### T HYR, CBC, BMP, 2776-06, #### [facility] ([id number]) [address] [facility] [place] [address] CSF CULTUREon 07-10-2024 Bacteria identified Cx Nom (CSF) GRAM STAIN WHITE BLOOD CELLS PRESENT NO ORGANISMS SEEN ON CONCENTRATED SMEAR CULTURE RESULTS NO GROWTH 5 DAYS Normal [facility] Comment on above: Performed By: #### T HYR, CBC, BMP, 2776-06, #### [facility] ([id number]) [address] [facility], [address] [place] [address] CSF spinal fluid cell counto n 07-10-2024 Clarity (CSF) CLEAR [facility] Color (CSF) COLORLESS [facility] Color (Spun CSF) COLORLESS [facility] Differential panel (Dial fld) NUCLEATED CELLS <5/uL; DIFF NOT TESTED [facility] Interpretation and review of laboratory results Abnormal [facility] Laboratory comment Ramone (Report) TUBE 3 [facility] Nucleated cells Manual cnt (CSF) [#/Vol] 0.001 10*3/uL 0 - 5 /uL [facility] RBC Manual cnt (CSF) [#/Vol] 48 /uL High 0 - 1 /uL [facility] Csf total proteinon 07-10-19 25 Protein (CSF) [Mass/Vol] 45 mg/dL 15 - 45 mg/dL [facility] Cytologyon 07-10-[address] [facility] Comment on above: Result Comment: [facility] [address] [place] [address] Cytology Consultation Patient Name:NOÉ JEFFERY:1965 (Age: 58)Gender:MTaken:07/10/2024Reported:07/11/2024 16:49Physician(s):Arnulfo Halye M.D. ([phone])Copy To:Quinton Harrell M.D. Rec. #:[id number]: #[id number] Final Cytologic Diagnosis Cerebrospinal fluid: No malignant cells identified. 07/11/2024 [facility]ation performed at [facility], [address] [place], [place] [address], License number: [id number].Electronically Signed Out By Derick Lorenz MD Additional Report(s): Flow Cytometry-Surg/BM/NG Date Reported: 07/13/2024 No flow cytometric abnormalities. The specimen is hypocellular with a sparse lymphoid component. Immunophenotypic analysis of the lymphoid cells demonstrates a mixed population of few phenotypically unremarkable T-cells and polyclonal B-cells. No monoclonal lymphoid population is detected. Immunophenotyping antibodies tested: CD3, CD4, CD5, CD7, CD8, CD19, CD20, CD45, Avinger, and Lambda. Immunophenotyping Comment: Immunophenotyping has been used in this diagnostic evaluation. This test was developed and its performance characteristics determined by the [facility]. It has not been [...] perform high-complexity clinical testing. Interpretation performed at [facility], [address] [place] [address], License number: [id number]. 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 Also received is one cytospin slide from Hematology. Source of Specimen Cerebrospinal fluid Non FUR OPERATOR ThinPrep, Cytospin Slide Fee Code(s): 1; 46988, 94054 Encephalopathy autoimmune Ab panel (CSF)on 07-10-2024 ENCEPHALOPATHY-AUTOIM MUNE EVAL - CSF SEE COMMENTS 07/17/2024 05:00 PM Normal [facility] Comment on above: Result Comment: [...] characteristics determined by [facility] in a manner consistent with CLIA requirements. This test has not been cleared or approved by the U.S. Food and Drug Administration. Amphiphysin Ab, CSF Negative Negative ADDITIONAL INFORMATION This test was developed and its performance characteristics determined by [facility] in a manner consistent with CLIA requirements. This test has not been cleared or approved by the U.S. Food and Drug Administration. AGNA-1, CSF Negative Negative ADDITIONAL INFORMATION This test was developed and its performance characteristics determined by [facility] in a manner consistent with CLIA requirements. This test has not been cleared or approved by the U.S. Food and Drug Administration. MARKEL-1, CSF Negative Negative ADDITIONAL INFORMATION This test was developed and its performance characteristics determined by [facility] in a manner consistent with CLIA requirements. This test has not been cleared or approved by the U.S. Food and Drug Administration. MARKEL-2, CSF Negative Negative ADDITIONAL INFORMATION This test was developed and its performance characteristics determined by [facility] in a manner consistent with CLIA requirements. This test has not been cleared or approved by the U.S. Food and Drug Administration. MARKEL-3, CSF Negative Negative ADDITIONAL INFORMATION This test was developed and its performance characteristics determined by [facility] in a manner consistent with CLIA requirements. This test has not been cleared or approved by the U.S. Food and Drug Administration. CASPR2-IgG CBA, CSF Negative Negative ADDITIONAL INFORMATION This test was developed and its performance characteristics determined by [facility] in a manner consistent with CLIA requirements. This test has not been cleared or approved by the U.S. Food and Drug Administration. CRMP-5-IgG, CSF Negative Negative ADDITIONAL INFORMATION This test was developed and its performance characteristics determined by [facility] in a manner consistent with CLIA requirements. This test has not been cleared or approved by the U.S. Food and Drug Administration. DPPX Ab CBA, CSF Negative Negative ADDITIONAL INFORMATION This test was developed and its performance characteristics determined by [facility] in a manner consistent with CLIA requirements. This test has not been cleared or approved by the U.S. Food and Drug Administration. NICOLE-B-R Ab CBA, CSF Negative Negative ADDITIONAL INFORMATION This test was developed and its performance characteristics determined by [facility] in a manner consistent with CLIA requirements. This test has not been cleared or approved by the U.S. Food and Drug Administration. GAD65 Ab Assay, CSF 0.00 nmol/L <= 0.02 ADDITIONAL INFORMATION This test was developed and its performance characteristics determined by [facility] in a manner consistent with CLIA requirements. This test has not been cleared or approved by the U.S. Food and Drug Administration. GFAP IFA, CSF Negative Negative ADDITIONAL INFORMATION This test was developed and its performance characteristics determined by [facility] in a manner consistent with CLIA requirements. This test has not been cleared or approved by the U.S. Food and Drug Administration. mGluR1 Ab IFA, CSF Negative Negative ADDITIONAL INFORMATION This test was developed and its performance characteristics determined by [facility] in a manner consistent with CLIA requirements. This test has not been cleared or approved by the U.S. Food and Drug Administration. IgLON5 CBA, CSF Negative Negative ADDITIONAL INFORMATION This test was developed and its performance characteristics determined by [facility] in a manner consistent with CLIA requirements. This test has not been cleared or approve (more content not included)... Performed By: #### T HYR, CBC, BMP, 2777-1, 84718-8 #### [facility] ([id number]) [address] [place] [address], [address] [place] [address] Flow cytometry specialist re view Ramone (Unsp spec) [Interp]on 07-10-2024 FLOW CYTOMETRY CSF SEE SEPARATE REPORT, REVIEWED BY PATHOLOGIST Normal [facility] Comment on above: Performed By: #### T HYR, CBC, BMP, 2776-06, #### [facility] ([id number]) [address], [address] [place] [address] Glucose (CSF) [Mass/Vol]on 0 07-10-2024 CSF GLUCOSE 66 mg/dL Normal 40-70 [facility] Comment on above: Performed By: #### T HYR, CBC, BMP, 2776-06, #### [facility] ([id number]) [address], [address] [place] [address] Glucose, CSFon 07-10-2024 Glucose (CSF) [Mass/Vol] 66 mg/dL 40 - 70 mg/dL [facility] LYME [employer]REBRICK LAYER HELPER Infection IgG w/ An tibody Index Reflex, CSF and Serumon 07-10-2024 LYME FIREBRICK LAYER HELPER IGG INTERP. See Note Normal [facility] Comment on above: [...] characteristics determined by [facility] in a manner consistent with CLIA requirements. This test has not been cleared or approved by the U.S. Food and Drug Administration. LYME [employer]REBRICK LAYER HELPER IGG, CSF Negative Normal Negative [facility] LYME FIREBRICK LAYER HELPER IGG, SERUM See Note Normal [facility] Comment on above: Result Comment: NOTE CSF screen was negative for IgG-class antibodies to Lyme Borrelia species. Testing for IgG-class antibodies to Borrelia in serum is not indicated and was not performed. Test Performed by: [facility] [address] [place] [address] Expediter: Eduardo Clark Ph.D.; CLIA# [id number] Lumbar Punctureon 07-10-2024 Arnulfo Haley MD 07/10/2024 [...] to verify the correct patient, procedure, equipment, landing support specialist and site/side marked as required. Anesthesia: local infiltration Anesthesia: Local Anesthetic: lidocaine 1% without epinephrine Sedation: Patient sedated: yes Lumbar space: L3-L4 interspace Patient's position: left lateral decubitus Opening pressure: 12 cm H2O Fluid appearance: clear Tubes of fluid: 4 Total volume: 17.5 ml Post-procedure: pressure dressing applied and adhesive bandage applied Procedure was completed Complications: none MANUALLY TRANSCRIBED RESULTS [facility] [facility] MENINGITIS PANELon 5 Meningitis+Encephalit is pathogens [...] NEOFORMANS Not detected (qualifier value) Normal NDET [facility] Comment on above: Performed By: #### T HYR, CBC, BMP, 2777-1, 16449-9 #### [facility] ([id number]) [address], [address] [place] [address] MR BRAIN W WO CONTon 025 MR BRAIN W WO CONT MR BRAIN W WO CONT STUDY: MRI brain with without contrast . CLINICAL HISTORY: Mental status change, unknown cause COMPARISON: July 03, 2024 brain MRI from [facility] Procedure: Multiplanar, multisequence imaging performed through [...] and cranio-cervical junction. Flow voids documented in [place] and dural venous sinuses. No [...] Lu MD on 07/10/2024 11:31 AM Normal [facility] MR Brain WO and W contrast I Von 07-10-2024 STUDY: MRI brain with without contrast . CLINICAL HISTORY: Mental status change, unknown cause COMPARISON: July 03, 2024 brain MRI from [facility] Procedure: Multiplanar, multisequence imaging performed through [...] and cranio-cervical junction. Flow voids documented in [place] and dural venous sinuses. No [...] COMPARISON: July 03, 2024 brain MRI from [facility] Procedure: Multiplanar, multisequence imaging performed through [...] and cranio-cervical junction. Flow voids documented in [place] and dural venous sinuses. No [...] Wilson Lu MD on 07/10/2024 11:31 AM [facility] Radiology Study observation (narrative) [facility] MR Brain WO and W contrast I VOrdered By: Wilson Lu on 07-10-2024 [facility] Work Phone: Meningitis+Encephalitis path ogens DNA and RNA panel LILLIANA+non-probe (CSF)on 07-10-2024 C. gattii+neoformans DNA LILLIANA+non-probe Ql (CSF) Not detected Not Detected^No t Detected [facility] CMV DNA LILLIANA+non-probe Ql (CSF) Not detected Not Detected^No t Detected [facility] E. coli K1 DNA LILLIANA+non-probe Ql (CSF) Not detected Not Detected^No t Detected [facility] Enterovirus RNA LILLIANA+non-probe Ql (CSF) Not detected Not Detected^No t Detected [facility] H. influenzae DNA LILLIANA+non-probe Ql (CSF) Not detected Not Detected^No t Detected [facility] HHV 6 DNA LILLIANA+non-probe Ql (CSF) Not detected Not Detected^No t Detected [facility] HSV 1 DNA LILLIANA+non-probe Ql (CSF) Not detected Not Detected^No t Detected [facility] HSV 2 DNA LILLIANA+non-probe Ql (CSF) Not detected Not Detected^No t Detected [facility] L. monocytogenes DNA LILLIANA+non-probe Ql (CSF) Not detected Not Detected^No t Detected [facility] N. meningitidis DNA LILLIANA+non-probe Ql (CSF) Not detected Not Detected^No t Detected [facility] Parechovirus A RNA LILLIANA+non-probe Ql (CSF) Not detected Not Detected^No t Detected [facility] S. agalactiae DNA LILLIANA+non-probe Ql (CSF) Not detected Not Detected^No t Detected [facility] S. pneumoniae DNA LILLIANA+non-probe Ql (CSF) Not detected Not Detected^No t Detected [facility] Specimen source Nom (Body fld) CEREBROSPINAL FLUID [facility] VZV DNA LILLIANA+non-probe Ql (CSF) Not detected Not Detected^No t Detected [facility] No Panel Informationon 07-10 [facility] Protein (CSF) [Mass/Vol]on 0 07-10-2024 CSF TOTAL PROTEIN 45 mg/dL Normal 15-45 [facility] Comment on above: Performed By: #### T HYR, CBC, BMP, 2776-06, #### [facility] ([id number]) [address], [address] [place] [address] Reagin Ab VDRL Ql (CSF)on VDRL, Spinal Fluid Negative Normal Negative [facility] Comment on above: Result Comment: NOTE Test Performed by: [facility] [address] [place] [address] Expediter: Eduardo Clark Ph.D.; CLIA# [id number] Performed By: #### T HYR, CBC, BMP, 2776-06, 99983-2 #### [facility] ([id number]) [address], [address] [place] [address] SPINAL FLUID CELL CTon 07-10 CSF CLARITY CLEAR Normal [facility] Comment on above: Performed By: #### T HYR, CBC, BMP, 2776-06, #### [facility] ([id number]) [address], [address] [place] [address] CSF COL[address] COLORLESS Normal [facility] Comment on above: Performed By: #### T HYR, CBC, BMP, 2776-06, #### [facility] ([id number]) [address], [address] [place] [address] CSF COMMENT TUBE 3 Normal [facility] Comment on above: Performed By: #### T HYR, CBC, BMP, 2776-06, #### [facility] ([id number]) [address], [address] [place] [address] CSF NUCLEATED CELLS 1 /uL Normal 0-5 [facility] Comment on above: Performed By: #### T HYR, CBC, BMP, 2776-06, 67227-7 #### [facility] ([id number]) [address], [address] [place] [address] CSF RBC 48 /uL High 0-1 [facility] Comment on above: Performed By: #### T HYR, CBC, BMP, 2776-06, 30723-5 #### [facility] ([id number]) [address], [address] [place] [address] CSF SUPERNATANT COLORLESS Normal [facility] Comment on above: Performed By: #### T HYR, CBC, BMP, 2776-06, 26268-7 #### [facility] ([id number]) [address], [address] [place] [address] SF DIFF NUCLEATED CELLS <5/uL; DIFF NOT TESTED Normal [facility] Comment on above: Performed By: #### T HYR, CBC, BMP, 2776-06, 01425-8 #### [facility] ([id number]) [address], [address] [place] [address] B. burgdorferi IgG+IgM Qn (S )on 07-09-2024 [facility] ECG 12 leadon 07-09-2024 TRACEMASTERVUE [facility] IgG synthesis rate Calc (S+C SF) [Mass/Time]on 07-09-2024 CSF IgG Index Profile SEE COMMENTS 07/11/2024 12:55 PM Normal [facility] Comment on above: Result Comment: [...] mg/dL 3500 - 5000 Test Performed by: [facility] [address] [place] [address] Expediter: Eduardo Clark Ph.D.; CLIA# [id number] Test Performed by: [facility] [address] [place] [address] Expediter: Eduardo Clark Ph.D.; CLIA# [id number] TANNER Virus Antibody W/Reflexon 07-09-2024 TANNER Virus Antibody Positive Abnormal [facility] Comment on above: Result Comment: NOTE Index [...] index.(1) (1) TYSABRI(natalizumab)US Prescribing Information Performed by: [facility] [address] [place] [phone] Jessenia Bagley MD, PhD, TANNER Virus Index 2.94 High [facility] Comment on above: Result Comment: NOTE Performed by: [facility] [address] [place] [address] Jessenia Bagley MD, PhD, Laboratory comment Ramone (Repo rt)on 07-09-2024 [facility] UNLISTED LAB TEST Sent to reference lab Normal [facility] Lyme Totalon 07-09-2024 B. burgdorferi IgG+IgM Qn (S) A1 NINF - 0.9 A1 [facility] Comment on above: Interpretation-------- <0.9 Negative [...] (PPP) [Relative time] 1.1 {INR} Normal 0.8-1.1 [facility] Comment on above: Performed By: #### T HYR, CBC, BMP, 6417-, 01791-0 #### [facility] ([id number]) [address] [place] [address] PT Coag (PPP) [Time] 12.4 s Normal 9.8-13.2 [facility] Comment on above: Performed By: #### T HYR, CBC, BMP, 2777-, 67131-7 #### [facility] ([id number]) [address], [address] [place] [address] Protime & INRon 07-09-2024 INR Coag (PPP) [Relative time] 1.1 {INR} [facility] PT Coag (PPP) [Time] 12.4 s [facility] Syphilis Total(Unknown Syphi lis Status)on 07-09-2024 T. pallidum IgG+IgM IA Ql (S) [facility] Comment on above: NON REACTIVE No serologic evidence of infection to Treponema pallidum (syphilis). Repeat testing may be considered in patients with suspected acute or primary syphilis in 2 to 4 weeks. T. pallidum IgG+IgM IA Ql (S )on 07-09-2024 [facility] Unlisted Lab Test TANNER viruson 07-09-2024 Laboratory comment Ramone (Report) Sent to reference lab [facility] AMMONIAon 07-08-2024 Ammonia (P) [Moles/Vol] 40 umol/L Normal 18-72 [facility] Comment on above: Result Comment: SPEC IMEN HEMOLYZED, RESULTS INCREASED SLIGHTLY HEMOLYZED NEW REFERENCE RANGE Performed By: #### T HYR, CBC, BMP, 2776-06, 97378-8 #### [facility] ([id number]) [address], [address] [place] [address] Ammoniaon 07-08-2024 Ammonia (P) [Moles/Vol] 40 umol/L 18 - 72 umol/L [facility] Comment on above: SPECIMEN HEMOLYZED, RESULTS INCREASED SLIGHTLY HEMOLYZED NEW REFERENCE RANGE Ammonia (P) [Moles/Vol]on [facility] BASIC METABOLIC PANLon 07-08 Anion gap [Moles/Vol] 6 mmol/L Normal 5-15 [facility] Comment on above: Performed By: #### T HYR, CBC, BMP, 2776-06, #### [facility] ([id number]) [address], [address] [place] [address] Calcium [Mass/Vol] 8.3 mg/dL Low 8.5-10.5 [facility] Comment on above: Performed By: #### T HYR, CBC, BMP, 2776-06, 44153-0 #### [facility] ([id number]) [address], [address] [place] [address] Chloride [Moles/Vol] 107 mmol/L Normal 98-109 [facility] Comment on above: Performed By: #### T HYR, CBC, BMP, 2776-06, #### [facility] ([id number]) [address], [address] [place] [address] CO2 [Moles/Vol] 29 mmol/L Normal 22-32 [facility] Comment on above: Performed By: #### T HYR, CBC, BMP, 2776-06, #### [facility] ([id number]) [address], [address] [place] [address] Creatinine [Mass/Vol] 0.91 mg/dL Normal 0.60-1.30 [facility] Comment on above: Result Comment: METH OD TRACEABLE TO IDMS STANDARD Performed By: #### T HYR, CBC, BMP, 2776-06, #### [facility] ([id number]) [address], [address] [place] [address] eGFR (CKD-EPI) NON-RACE DEPENDENT >90 Normal >59 [facility] Comment on above: Result Comment: Reported eGFR is based on the CKD-EPI 2020 equation that does not use a race coefficient. Performed By: #### T HYR, CBC, BMP, 2776-06, #### [facility] ([id number]) [address], [address] [place] [address] Glucose [Mass/Vol] 91 mg/dL Normal 65-99 [facility] Comment on above: Performed By: #### T HYR, CBC, BMP, 2776-06, #### [facility] ([id number]) [address] [place] [address] Potassium [Moles/Vol] 4.1 mmol/L Normal 3.5-5.0 [facility] Comment on above: Performed By: #### T HYR, CBC, BMP, 2776-06, #### [facility] ([id number]) [address], [address] [place] [address] Sodium [Moles/Vol] 142 mmol/L Normal 134-146 [facility] Comment on above: Performed By: #### T HYR, CBC, BMP, 2776-, #### [facility] ([id number]) [address], [address] [place] [address] Urea nitrogen [Mass/Vol] 22 mg/dL Normal 5-23 [facility] Comment on above: Performed By: #### T HYR, CBC, BMP, 2776-, #### [facility] ([id number]) [address], [address] [place] [address] Basic Metabolic Panelon 06-20 Anion gap [Moles/Vol] 6 mmol/L 5 - 15 mmol/L [facility] Calcium [Mass/Vol] 8.3 mg/dL Low 8.5 - 10. 5 mg/dL [facility] Chloride [Moles/Vol] 107 mmol/L 98 - 10 9 mmol/L [facility] CO2 [Moles/Vol] 29 mmol/L 22 - 32 mmol/L [facility] Creatinine [Mass/Vol] 0.91 mg/dL 0.60 - 1.30 mg/dL [facility] Comment on above: METHOD TRACEABLE TO IDAZ STANDARD eGFR (CKD-EPI)non-race dependent - PINF [facility] Comment on above: Reported eGFR is based on the CKD-EPI 2020 equation that does not use a race coefficient. Glucose [Mass/Vol] 91 mg/dL 65 - 99 mg/dL [facility] Interpretation and review of laboratory results Abnormal [facility] Potassium [Moles/Vol] 4.1 mmol/L 3.5 - 5.0 mmol/L [facility] Sodium [Moles/Vol] 142 mmol/L 134 - 146 mmol/L [facility] Urea nitrogen [Mass/Vol] 22 mg/dL 5 - 23 mg/dL [facility] CBC without diffon Erythrocyte distribution width (RBC) [Ratio] 15.6 % High 11.5 - 15.0 % [facility] Hematocrit (Bld) [Volume fraction] 39.1 % 39 - 49 % [facility] Hemoglobin (Bld) [Mass/Vol] 12.7 g/dL Low 13.0 - 17.0 g/dL [facility] Interpretation and review of laboratory results Abnormal [facility] MCH (RBC) [Entitic mass] 24.5 pg Low 27 - 34 pg [facility] MCHC (RBC) [Mass/Vol] 32.5 g/dL 32 - 3 6 g/dL [facility] MCV (RBC) [Entitic vol] 75 fL Low 80 - 100 fL [facility] Platelet mean volume (Bld) [Entitic vol] 8.6 fL 7 - 12 fL [facility] Platelets (Bld) [#/Vol] 154 10*3/uL [facility] RBC (Bld) [#/Vol] 5.19 10*6/uL [facility] WBC corrected for nucl RBC Auto (Bld) [#/Vol] 4.1 [facility] COMPLETE BLOOD COUNTon 07-08 Erythrocyte distribution width (RBC) [Ratio] 15.6 % High 11.5-15.0 [facility] Comment on above: Performed By: #### T HYR, CBC, BMP, 2776-, 69350-6 #### [facility] ([id number]) [address], [address] [place] [address] Hematocrit (Bld) [Volume fraction] 39.1 % Normal 39-49 [facility] Comment on above: Performed By: #### T HYR, CBC, BMP, 2776-06, 07845-5 #### [facility] ([id number]) [address], [address] [place] [address] Hemoglobin (Bld) [Mass/Vol] 12.7 g/dL Low 13.0-17.0 [facility] Comment on above: Performed By: #### T HYR, CBC, BMP, 2776-06, #### [facility] ([id number]) [address], [address] [place] [address] MCH (RBC) [Entitic mass] 24.5 pg Low 27-34 [facility] Comment on above: Performed By: #### T HYR, CBC, BMP, 2776-06, #### [facility] ([id number]) [address], [facility] [address] [place] [address] MCHC (RBC) [Mass/Vol] 32.5 g/dL Normal 32-36 [facility] Comment on above: Performed By: #### T HYR, CBC, BMP, 2776-06, #### [facility] ([id number]) [address], [facility] [address] [place] [address] MCV (RBC) [Entitic vol] 75 fL Low 80-100 [facility] Comment on above: Performed By: #### T HYR, CBC, BMP, 2776-06, #### [facility] ([id number]) [address] [place] [address] Platelet mean volume (Bld) [Entitic vol] 8.6 fL Normal 7-12 [facility] Comment on above: Performed By: #### T HYR, CBC, BMP, 2776-06, #### [facility] ([id number]) [address] [place] [address] Platelets (Bld) [#/Vol] 154 10*3/uL Normal 150-450 [facility] Comment on above: Performed By: #### T HYR, CBC, BMP, 2776-06, #### [facility] ([id number]) [address] [place] [address] RBC COUNT 5.19 X10E12/L Normal 4.10-5.70 [facility] Comment on above: Performed By: #### T HYR, CBC, BMP, 2777-1, 08746-3 #### [facility] ([id number]) [address], [address] [place] [address] WBC (Bld) [#/Vol] 4.1 10*3/uL Normal 4.0-11.0 [facility] Comment on above: Performed By: #### T HYR, CBC, BMP, 2777-1, 30264-2 #### [facility] ([id number]) [address] [place] [address] Cobalamin (Vitamin B12) [Mas s/Vol]on 07-08-2024 [facility] EEGon 07-08-2024 Images from the [...] MD, PhD Neurology/Clinical Neurophysiology MANUALLY TRANSCRIBED RESULTS [facility] Folateon 07-08-2024 Folate [Mass/Vol] 10.2 ng/mL 5.8 - PINF ng/mL [facility] Comment on above: NEW REFERENCE RANGE Folate [Mass/Vol]on 07-08-19 [facility] FOLIC ACID 10.2 ng/mL Normal >5.8 [facility] Comment on above: Result Comment: NEW REFERENCE RANGE Performed By: #### T HYR, CBC, BMP, 2777-1, 47430-1 #### [facility] ([id number]) [address] [place] [address] [address] [place] [address] HIV 1&2 AB/AG Screen (P24 AG )on 07-08-2024 HIV 1+2 Ab+HIV1 p24 Ag IA Ql Non-Reactive Non-Reactiv e^Non-React deirdre [facility] Comment on above: NEW TEST METHOD [...] Ab+HIV1 p24 Ag IA Ql on 07-08-2024 [facility] HIV 1 and 2 Ab/Ag Screen Non-Reactive Normal NRCT [facility] Comment on above: Result Comment: [...] #### T HYR, CBC, BMP, 2776-06, #### [facility] ([id number]) [facility] [facility] [facility], [address] [place] [address] VITAMIN B12on 07-08-2024 Cobalamin (Vitamin B12) [Mass/Vol] 526 pg/mL Normal 180-914 [facility] Comment on above: Performed By: #### T HYR, CBC, BMP, 2776-06, #### [facility] ([id number]) [address] [place] [address], [address] [place] [address] Vitamin B12on 07-08-2024 Cobalamin (Vitamin B12) [Mass/Vol] 526 pg/mL 180 - 914 pg/mL [facility] B. burgdorferi IgG+IgM Qn (S )on 07-07-2024 LYME TOTAL <0.2 Normal <0.9 [facility] Comment on above: Result Comment: Interpretation-------- <0.9 Negative 0.9 - 1.0 Equivocal >1.0 Positive No serological evidence of Borrelia infection.A non-reactive result does not exclude the possibility of Borrelia infection and cannot exclude early infection with B.burgdorferi. If Lyme borreliosis is suspected, a second sample should be collected and tested 2-4 weeks later. Performed By: #### C BC, BMP, 60187-6, 32809-0 #### [facility] ([id number]) [address] [facility], [address] [place] [address] BASIC METABOLIC PANLon 01-18 -2025 Anion gap [Moles/Vol] 8 mmol/L Normal 5-15 [facility] Comment on above: Performed By: #### C NATAN, BMP, 63073-1, 56971-4 #### [facility] ([id number]) [address], [address] [place] [address] Calcium [Mass/Vol] 8.8 mg/dL Normal 8.5-10.5 [facility] Comment on above: Performed By: #### Emily GAMA, BMP, 21570-3, 26935-4 #### [facility] ([id number]) [address], [address] [place] [address] Chloride [Moles/Vol] 107 mmol/L Normal 98-109 [facility] Comment on above: Performed By: #### Emily GAMA, BMP, 18888-9, 88206-0 #### [facility] ([id number]) [address], [address] [place] [address] CO2 [Moles/Vol] 30 mmol/L Normal 22-32 [facility] Comment on above: Performed By: #### Emily GAMA, BMP, 40253-7, 24762-8 #### [facility] ([id number]) [address], [address] [place] [address] Creatinine [Mass/Vol] 1.00 mg/dL Normal 0.60-1.30 [facility] Comment on above: Result Comment: METH OD TRACEABLE TO IDMS STANDARD Performed By: #### Emily GAMA, BMP, 76633-5, 49134-0 #### [facility] ([id number]) [address], [address] [place] [address] GFR/1.73 sq M.predicted among non-blacks MDRD (S/P/Bld) [Vol rate/Area] 87 mL/min/{1.73_m2} Normal >59 [facility] Comment on above: Result Comment: Reported eGFR is based on the CKD-EPI 2020 equation that does not use a race coefficient. Performed By: #### C NATAN, BMP, 23384-0, 24112-6 #### [facility] ([id number]) [address], [address] [place] [address] Glucose [Mass/Vol] 106 mg/dL High 65-99 [facility] Comment on above: Performed By: #### Emily GAMA, BMP, 57755-7, 63029-3 #### [facility] ([id number]) [address], [facility] [address] [place] [address] Potassium [Moles/Vol] 3.9 mmol/L Normal 3.5-5.0 [facility] Comment on above: Performed By: #### Emily GAMA, BMP, 67188-9, 26338-0 #### [facility] ([id number]) [address], [facility] [address] [place] [address] Sodium [Moles/Vol] 145 mmol/L Normal 134-146 [facility] Comment on above: Performed By: #### Emily GAMA, DEE, 55646-5, 28689-1 #### [facility] ([id number]) [address], [facility] [address] [place] [address] Urea nitrogen [Mass/Vol] 23 mg/dL Normal 5-23 [facility] Comment on above: Performed By: #### Emily GAMA, BMP, 17027-3, 66010-6 #### [facility] ([id number]) [address], [address] [place] [address] Basic Metabolic Panelon - Anion gap [Moles/Vol] 8 mmol/L 5 - 15 mmol/L [facility] Calcium [Mass/Vol] 8.8 mg/dL 8.5 - 10. 5 mg/dL [facility] Chloride [Moles/Vol] 107 mmol/L 98 - 10 9 mmol/L [facility] CO2 [Moles/Vol] 30 mmol/L 22 - 32 mmol/L [facility] Creatinine [Mass/Vol] 1 mg/dL 0.60 - 1.30 mg/dL [facility] Comment on above: METHOD TRACEABLE TO [facility] STANDARD eGFR (CKD-EPI)non-race dependent 87 - PINF [facility] Comment on above: Reported eGFR is based on the CKD-EPI 2020 equation that does not use a race coefficient. Glucose [Mass/Vol] 106 mg/dL High 65 - 99 mg/dL [facility] Interpretation and review of laboratory results Abnormal [facility] Potassium [Moles/Vol] 3.9 mmol/L 3.5 - 5.0 mmol/L [facility] Sodium [Moles/Vol] 145 mmol/L 134 - 146 mmol/L [facility] Urea nitrogen [Mass/Vol] 23 mg/dL 5 - 23 mg/dL [facility] CBC without diffon Erythrocyte distribution width (RBC) [Ratio] 15.3 % High 11.5 - 15.0 % [facility] Hematocrit (Bld) [Volume fraction] 41.3 % 39 - 49 % [facility] Hemoglobin (Bld) [Mass/Vol] 13.4 g/dL 13.0 - 17.0 g/dL [facility] Interpretation and review of laboratory results Abnormal [facility] MCH (RBC) [Entitic mass] 24.7 pg Low 27 - 34 pg [facility] MCHC (RBC) [Mass/Vol] 32.5 g/dL 32 - 3 6 g/dL [facility] MCV (RBC) [Entitic vol] 76 fL Low 80 - 100 fL [facility] Platelet mean volume (Bld) [Entitic vol] 7.8 fL 7 - 12 fL [facility] Platelets (Bld) [#/Vol] 152 10*3/uL [facility] RBC (Bld) [#/Vol] 5.45 10*6/uL [facility] WBC corrected for nucl RBC Auto (Bld) [#/Vol] 4.4 [facility] COMPLETE BLOOD COUNTon 07-07 Erythrocyte distribution width (RBC) [Ratio] 15.3 % High 11.5-15.0 [facility] Comment on above: Performed By: #### C NATAN, BMP, 66651-6, 13659-8 #### [facility] ([id number]) [address], [address] [place] [address] Hematocrit (Bld) [Volume fraction] 41.3 % Normal 39-49 [facility] Comment on above: Performed By: #### C BC, BMP, 17954-2, 92371-7 #### [facility] ([id number]) [address], [address] [place] [address] Hemoglobin (Bld) [Mass/Vol] 13.4 g/dL Normal 13.0-17.0 [facility] Comment on above: Performed By: #### Emily GAMA, BMP, 26000-3, 33458-2 #### [facility] ([id number]) [address], [address] [place] [address] MCH (RBC) [Entitic mass] 24.7 pg Low 27-34 [facility] Comment on above: Performed By: #### C NATAN, BMP, 10920-8, 24542-6 #### [facility] ([id number]) [address], [address] [place] [address] MCHC (RBC) [Mass/Vol] 32.5 g/dL Normal 32-36 [facility] Comment on above: Performed By: #### Emily GAMA, BMP, 55883-6, 49071-8 #### [facility] ([id number]) [address] [address] [place] [address] MCV (RBC) [Entitic vol] 76 fL Low 80-100 [facility] Comment on above: Performed By: #### Emily BC, BMP, 61213-3, 96511-1 #### [facility] ([id number]) [address] [place] [address] Platelet mean volume (Bld) [Entitic vol] 7.8 fL Normal 7-12 [facility] Comment on above: Performed By: #### C NATAN, BMP, 33555-0, 98314-2 #### [facility] ([id number]) [address] [place] [address] Platelets (Bld) [#/Vol] 152 10*3/uL Normal 150-450 [facility] Comment on above: Performed By: #### C NATAN, BMP, 34347-3, 26984-7 #### [facility] ([id number]) [address] [place] [address] RBC COUNT 5.45 X10E12/L Normal 4.10-5.70 [facility] Comment on above: Performed By: #### Emily GAMA, DEE, 19831-3, 03121-6 #### [facility] ([id number]) [address] [place] [address] WBC (Bld) [#/Vol] 4.4 10*3/uL Normal 4.0-11.0 [facility] Comment on above: Performed By: #### C NATAN, DEE, 56887-5, 14827-1 #### [facility] ([id number]) [address] [place] [address] CT BRAIN WO CONTon 5 CT BRAIN [...] Johnson MD on 07/07/2024 9:19 AM Normal [facility] CT Head WO contraston 2024 [...] Delonte Johnson MD on 07/07/2024 9:19 AM [facility] Study observation (narrative) [facility] CT Head WO contrastOrdered B y: Delonte Johnson on 07-07-2024 [employer] Work Phone: EEGon 07-07-2024 Images from [...] RESULTS EEGOrdered By: Reji Sanon on 07-07-2024 [facility] [employer] Work Phone: T. pallidum IgG+IgM IA Ql (S )on 07-07-2024 Syphilis Total <0.2 Normal 0.0-0.8 [facility] Comment on above: Result Comment: NON REACTIVE No serologic evidence of infection to Treponema pallidum (syphilis). Repeat testing may be considered in patients with suspected acute or primary syphilis in 2 to 4 weeks. Performed By: #### C BC, BMP, 75553-0, 12239-6 #### [facility] ([id number]) [address] [place] [address] BASIC METABOLIC PANLon 07-06 Anion gap [Moles/Vol] 7 mmol/L Normal 5-15 [facility] Comment on above: Performed By: #### T HYR, CBC, BMP, 2776-06, 60464-8 #### [facility] ([id number]) [address] [place] [address] Calcium [Mass/Vol] 8.8 mg/dL Normal 8.5-10.5 [facility] Comment on above: Performed By: #### T HYR, CBC, BMP, 2776-06, 78086-9 #### [facility] ([id number]) [address] [place] [address] Chloride [Moles/Vol] 105 mmol/L Normal 98-109 [facility] Comment on above: Performed By: #### T HYR, CBC, BMP, 2776-06, #### [facility] ([id number]) [address] [place] [address] CO2 [Moles/Vol] 30 mmol/L Normal 22-32 [facility] Comment on above: Performed By: #### T HYR, CBC, BMP, 2776-06, #### [facility] ([id number]) [address] [place] [address] Creatinine [Mass/Vol] 1.00 mg/dL Normal 0.60-1.30 [facility] Comment on above: Result Comment: METH OD TRACEABLE TO IDMS STANDARD Performed By: #### T HYR, CBC, BMP, 2776-06, #### [facility] ([id number]) [address] [address] [place] [address] GFR/1.73 sq M.predicted among non-blacks MDRD (S/P/Bld) [Vol rate/Area] 87 mL/min/{1.73_m2} Normal >59 [facility] Comment on above: Result Comment: Reported eGFR is based on the CKD-EPI 2020 equation that does not use a race coefficient. Performed By: #### T HYR, CBC, BMP, 2776-06, #### [facility] ([id number]) [address] [place] [address] Glucose [Mass/Vol] 102 mg/dL High 65-99 [facility] Comment on above: Performed By: #### T HYR, CBC, BMP, 2776-06, #### [facility] ([id number]) [address] [address] [place] [address] Potassium [Moles/Vol] 4.0 mmol/L Normal 3.5-5.0 [facility] Comment on above: Performed By: #### T HYR, CBC, BMP, 2776-06, #### [facility] ([id number]) [address] [place] [address] Sodium [Moles/Vol] 142 mmol/L Normal 134-146 [facility] Comment on above: Performed By: #### T HYR, CBC, BMP, 2776-06, #### [facility] ([id number]) [address] [place] [address] Urea nitrogen [Mass/Vol] 22 mg/dL Normal 5-23 [facility] Comment on above: Performed By: #### T HYR, CBC, BMP, 2776-06, #### [facility] ([id number]) [address] [place] [address] Basic Metabolic Panelon 06-20 Anion gap [Moles/Vol] 7 mmol/L 5 - 15 mmol/L [facility] Calcium [Mass/Vol] 8.8 mg/dL 8.5 - 10. 5 mg/dL [facility] Chloride [Moles/Vol] 105 mmol/L 98 - 10 9 mmol/L [facility] CO2 [Moles/Vol] 30 mmol/L 22 - 32 mmol/L [facility] Creatinine [Mass/Vol] 1 mg/dL 0.60 - 1.30 mg/dL [facility] Comment on above: METHOD TRACEABLE TO [facility] STANDARD eGFR (CKD-EPI)non-race dependent 87 - PINF [facility] Comment on above: Reported eGFR is based on the CKD-EPI 2020 equation that does not use a race coefficient. Glucose [Mass/Vol] 102 mg/dL High 65 - 99 mg/dL [facility] Interpretation and review of laboratory results Abnormal [facility] Potassium [Moles/Vol] 4 mmol/L 3.5 - 5.0 mmol/L [facility] Sodium [Moles/Vol] 142 mmol/L 134 - 146 mmol/L [facility] Urea nitrogen [Mass/Vol] 22 mg/dL 5 - 23 mg/dL [facility] CBC without diffon Erythrocyte distribution width (RBC) [Ratio] 15.5 % High 11.5 - 15.0 % [facility] Hematocrit (Bld) [Volume fraction] 42.8 % 39 - 49 % [facility] Hemoglobin (Bld) [Mass/Vol] 14.1 g/dL 13.0 - 17.0 g/dL [facility] Interpretation and review of laboratory results Abnormal [facility] MCH (RBC) [Entitic mass] 24.7 pg Low 27 - 34 pg [facility] MCHC (RBC) [Mass/Vol] 33 g/dL 32 - 3 6 g/dL [facility] MCV (RBC) [Entitic vol] 75 fL Low 80 - 100 fL [facility] Platelet mean volume (Bld) [Entitic vol] 7.8 fL 7 - 12 fL [facility] Platelets (Bld) [#/Vol] 169 10*3/uL [facility] RBC (Bld) [#/Vol] 5.71 10*6/uL High [facility] WBC corrected for nucl RBC Auto (Bld) [#/Vol] 4.7 [facility] COMPLETE BLOOD COUNTon 07-06 Erythrocyte distribution width (RBC) [Ratio] 15.5 % High 11.5-15.0 [facility] Comment on above: Performed By: #### T HYR, CBC, BMP, 2776-06, 42605-9 #### [facility] ([id number]) [address] [place] [address] Hematocrit (Bld) [Volume fraction] 42.8 % Normal 39-49 [facility] Comment on above: Performed By: #### T HYR, CBC, BMP, 2776-06, 97091-9 #### [facility] ([id number]) [address] [place] [address] Hemoglobin (Bld) [Mass/Vol] 14.1 g/dL Normal 13.0-17.0 [facility] Comment on above: Performed By: #### T HYR, CBC, BMP, 2776-06, 57875-4 #### [facility] ([id number]) [address] [place] [address] MCH (RBC) [Entitic mass] 24.7 pg Low 27-34 [facility] Comment on above: Performed By: #### T HYR, CBC, BMP, 2776-06, #### [facility] ([id number]) [address], [facility] [address] [place] [address] MCHC (RBC) [Mass/Vol] 33.0 g/dL Normal 32-36 [facility] Comment on above: Performed By: #### T HYR, CBC, BMP, 2776-06, #### [facility] ([id number]) [address], [facility] [address] [place] [address] MCV (RBC) [Entitic vol] 75 fL Low 80-100 [facility] Comment on above: Performed By: #### T HYR, CBC, BMP, 2776-06, #### [facility] ([id number]) [address], [facility] [address] [place] [address] Platelet mean volume (Bld) [Entitic vol] 7.8 fL Normal 7-12 [facility] Comment on above: Performed By: #### T HYR, CBC, BMP, 2776-06, #### [facility] ([id number]) [address], [facility] [address] [place] [address] Platelets (Bld) [#/Vol] 169 10*3/uL Normal 150-450 [facility] Comment on above: Performed By: #### T HYR, CBC, BMP, 2776-06, #### [facility] ([id number]) [address], [facility] [address] [place] [address] RBC COUNT 5.71 X10E12/L High 4.10-5.70 [facility] Comment on above: Performed By: #### T HYR, CBC, BMP, 2776-06, #### [facility] ([id number]) [address] [place] [address] WBC (Bld) [#/Vol] 4.7 10*3/uL Normal 4.0-11.0 [facility] Comment on above: Performed By: #### T HYR, CBC, BMP, 2776-06, 28196-8 #### [facility] ([id number]) [address] [place] [address] MAGNESIUMon 07-06-2024 Magnesium [Mass/Vol] 1.9 mg/dL Normal 1.8-2.6 [facility] Comment on above: Performed By: #### T HYR, CBC, BMP, 2776-06, 45076-5 #### [facility] ([id number]) [address] [place] [address] Magnesiumon 07-06-2024 Magnesium [Mass/Vol] 1.9 mg/dL 1.8 - 2 .6 mg/dL [facility] No Panel Informationon 07-06 [facility] PHOSPHORUSon 07-06-2024 Phosphate [Mass/Vol] 4.1 mg/dL Normal 2.4-4.9 [facility] Comment on above: Performed By: #### T HYR, CBC, BMP, 2776-06, 08483-7 #### [facility] ([id number]) [address] [place] [address] Phosphoruson 07-06-2024 Phosphate [Mass/Vol] 4.1 mg/dL 2.4 - 4 .9 mg/dL [facility] THYROID PROFILEon 07-06-2024 Free T4 [Mass/Vol] 0.84 ng/dL Normal 0.61-1.60 [facility] Comment on above: Performed By: #### T HYR, CBC, BMP, 2776-06, 51169-6 #### [facility] ([id number]) [address] [place] [address] TSH 1.16 uIU/mL Normal 0.49-4.67 [facility] Comment on above: Performed By: #### T HYR, CBC, BMP, 2777-1, 96826-9 #### [facility] ([id number]) [address] [place] [address] Thyroid profile includes TSH FT4on 07-06-2024 Free T4 [Mass/Vol] 0.84 ng/dL 0.61 - 1. 60 ng/dL [facility] TSH Qn 1.16 m[IU]/L [facility] ACETAMINOPHENon 06-24-2024 Acetaminophen [Mass/Vol] 3.3 ug/mL Low 10.0-30.0 [facility] Comment on above: Result Comment: Refe rence ranges are for therapeutic limits. Performed By: #### C CARRIE CMP, 5643-2, 3298-7, 4024-6, THYR #### [facility] ([id number]) [address] [place] [address] CBC AND AUTO DIFFon 06-24-19 25 ABSOLUTE BASOPHIL 0.1 X10E9/L Normal 0.0-0.2 [facility] Comment on above: Performed By: #### C CARRIE, CMP, 5643-2, 3298-7, 4024-6, THYR #### [facility] ([id number]) [address] [place] [address] ABSOLUTE NEUTROPHIL 3.1 X10E9/L Normal 1.5-6.6 [facility] Comment on above: Performed By: #### C BCA, CMP, 5643-2, 3298-7, 4024-6, THYR #### [facility] ([id number]) [address] [place] [address] Basophils/100 WBC (Bld) 1.0 % Normal [facility] Comment on above: Performed By: #### C BCA, CMP, 5643-2, 3298-7, 4024-6, THYR #### [facility] ([id number]) [address] [place] [address] Eosinophils (Bld) [#/Vol] 0.1 10*3/uL Normal 0.0-0.4 [facility] Comment on above: Performed By: #### C BCA, [facility], 5643-2, 3298-7, 4024-6, THYR #### [facility] ([id number]) [address] [place] [address] Eosinophils/100 WBC (Bld) 1.4 % Normal [facility] Comment on above: Performed By: #### C BCA, CMP, 5643-2, 3298-7, 4024-6, THYR #### [facility] ([id number]) [address] [place] [address] Erythrocyte distribution width (RBC) [Ratio] 15.6 % High 11.5-15.0 [facility] Comment on above: Performed By: #### C BCA, [facility], 5643-2, 3298-7, 4024-6, THYR #### [facility] ([id number]) [address] [place] [address] Hematocrit (Bld) [Volume fraction] 42.7 % Normal 39-49 [facility] Comment on above: Performed By: #### C BCA, CMP, 5643-2, 3298-7, 4024-6, THYR #### [facility] ([id number]) [address] [place] [address] Hemoglobin (Bld) [Mass/Vol] 14.3 g/dL Normal 13.0-17.0 [facility] Comment on above: Performed By: #### C BCA, CMP, 5643-2, 3298-7, 4024-6, THYR #### [facility] ([id number]) [address] [place] [address] Lymphocytes (Bld) [#/Vol] 1.8 10*3/uL Normal 1.0-3.5 [facility] Comment on above: Performed By: #### C CARRIE [facility], 5643-2, 3298-7, 4024-6, THYR #### [facility] ([id number]) [address] [place] [address] Lymphocytes/100 WBC (Bld) 33.3 % Normal [facility] Comment on above: Performed By: #### C CARRIE [facility], [facility], 329-7, 4026, THYR #### [facility] ([id number]) [address] [place] [address] MCH (RBC) [Entitic mass] 24.7 pg Low 27-34 [facility] Comment on above: Performed By: #### C CARRIE [facility], [facility]-2, 3298-7, 4024-6, THYR #### [facility] ([id number]) [address] [place] [address] MCHC (RBC) [Mass/Vol] 33.4 g/dL Normal 32-36 [facility] Comment on above: Performed By: #### Emily [facility], 43-2, 3298-7, 4024-6, THYR #### [facility] ([id number]) [address] [place] [address] MCV (RBC) [Entitic vol] 74 fL Low 80-100 [facility] Comment on above: Performed By: #### Emily [facility], 43-2, 3298-7, 4024-6, THYR #### [facility] ([id number]) [address] [place] [address] Monocytes (Bld) [#/Vol] 0.4 10*3/uL Normal 0-0.9 [facility] Comment on above: Performed By: #### C BCA, CMP, 5643-2, 3298-7, 4024-6, THYR #### [facility] ([id number]) [address] [place] [address] Monocytes/100 WBC (Bld) 6.9 % Normal [facility] Comment on above: Performed By: #### C BCA, CMP, 5643-2, 3298-7, 4024-6, THYR #### [facility] ([id number]) [address] [place] [address] Neutrophils/100 WBC (Bld) 57.4 % Normal [facility] Comment on above: Performed By: #### C BCA, CMP, 5643-2, 3298-7, 4024-6, THYR #### [facility] ([id number]) [address] [place] [address] Platelet mean volume (Bld) [Entitic vol] 7.8 fL Normal 7-12 [facility] Comment on above: Performed By: #### C BCA, CMP, 5643-2, 3298-7, 4024-6, THYR #### [facility] ([id number]) [address] [place] [address] Platelets (Bld) [#/Vol] 174 10*3/uL Normal 150-450 [facility] Comment on above: Performed By: #### C BCA, CMP, 5643-2, 3298-7, 4024-6, THYR #### [facility] ([id number]) [address] [place] [address] RBC COUNT 5.77 X10E12/L High 4.10-5.70 [facility] Comment on above: Performed By: #### C BCA, CMP, 5643-2, 3298-7, 4024-6, THYR #### [facility] ([id number]) [address] [place] [address] WBC (Bld) [#/Vol] 5.4 10*3/uL Normal 4.0-11.0 [facility] Comment on above: Performed By: #### C BCA, CMP, 5643-2, 3298-7, 4024-6, THYR #### [facility] ([id number]) [address] [place] [address]89[address] COMPREHENSIVE METABOLIC PANE Jatin 06-24-2024 Albumin [Mass/Vol] 4.0 g/dL Normal 3.2-5.3 [facility] Comment on above: Performed By: #### C BCA, CMP, 5643-2, 3298-7, 4024-6, THYR #### [facility] ([id number]) [address] [place] [address]65 ALP [Catalytic activity/Vol] 65 U/L Normal 39-130 [facility] Comment on above: Performed By: #### C BCA, CMP, 5643-2, 3298-7, 4024-6, THYR #### [facility] ([id number]) [address] [place] [address]16 ALT [Catalytic activity/Vol] 17 U/L Normal 0-40 [facility] Comment on above: Performed By: #### C BCA, CMP, 5643-2, 3298-7, 4024-6, THYR #### [facility] ([id number]) [address] [place] [address] Anion gap [Moles/Vol] 8 mmol/L Normal 5-15 [facility] Comment on above: Performed By: #### C BCA, CMP, 5643-2, 3298-7, 4024-6, THYR #### [facility] ([id number]) [address] [place] [address]391 AST [Catalytic activity/Vol] 17 U/L Normal 0-41 [facility] Comment on above: Performed By: #### C BCA, CMP, 5643-2, 3298-7, 4024-6, THYR #### [facility] ([id number]) [address] [place] [address]71 Bilirubin [Mass/Vol] 0.7 mg/dL Normal 0.3-1.2 [facility] Comment on above: Performed By: #### C BCA, CMP, 5643-2, 3298-7, 4024-6, THYR #### [facility] ([id number]) [address] [place] [address]89 Calcium [Mass/Vol] 8.9 mg/dL Normal 8.5-10.5 [facility] Comment on above: Performed By: #### C BCA, CMP, 5643-2, 3298-7, 4024-6, THYR #### [facility] ([id number]) [address] [place] [address] 26746 Chloride [Moles/Vol] 106 mmol/L Normal 98-109 [facility] Comment on above: Performed By: #### C BCA, CMP, 5643-2, 3298-7, 4024-6, THYR #### [facility] ([id number]) [address] [place] [address]8971 CO2 [Moles/Vol] 24 mmol/L Normal 22-32 [facility] Comment on above: Performed By: #### C BCA, CMP, 5643-2, 3298-7, 4024-6, THYR #### [facility] ([id number]) [address] [place] [address]4892 Creatinine [Mass/Vol] 0.88 mg/dL Normal 0.70-1.20 [facility] Comment on above: Result Comment: METH OD TRACEABLE TO IDMS STANDARD Performed By: #### C BCA, CMP, 5643-2, 3298-7, 4024-6, THYR #### [facility] ([id number]) [address] [place] [address]2272 eGFR (CKD-EPI) NON-RACE DEPENDENT >90 Normal >59 [facility] Comment on above: Result Comment: Reported eGFR is based on the CKD-EPI 2020 equation that does not use a race coefficient. Performed By: #### C BCA, CMP, 5643-2, 3298-7, 4024-6, THYR #### [facility] ([id number]) [address] [place] [address]1218 Glucose [Mass/Vol] 105 mg/dL High 65-99 [facility] Comment on above: Performed By: #### C CARRIE, CMP, 5643-2, 3298-7, 4024-6, THYR #### [facility] ([id number]) [address] [place] [address] 79979 Potassium [Moles/Vol] 3.9 mmol/L Normal 3.5-5.0 [facility] Comment on above: Performed By: #### C CARRIE, OWEN, 5643-2, 3298-7, 4024-6, THYR #### [facility] ([id number]) [address] [place] [address] 13395 Protein [Mass/Vol] 6.9 g/dL Normal 6.0-8.0 [facility] Comment on above: Performed By: #### C BCA, CMP, 5643-2, 3298-7, 4024-6, THYR #### [facility] ([id number]) [address] [place] [address] 74029 Sodium [Moles/Vol] 138 mmol/L Normal 134-146 [facility] Comment on above: Performed By: #### C BCA, CMP, 5643-2, 3298-7, 4024-6, THYR #### [facility] ([id number]) [address] [place] [address] 82714 Urea nitrogen [Mass/Vol] 20 mg/dL Normal 5-23 [facility] Comment on above: Performed By: #### C BCA, CMP, 5643-2, 3298-7, 4024-6, THYR #### [facility] ([id number]) [address] [place] [address] 22633 DRUG SCREEN, URINEon 025 AMPHETAMINE/METHAMP Negative Normal [facility] Comment on above: Result Comment: AMPH /METH screening cut off = 1000 ng/mL Performed By: #### D FAGAN #### [facility] ([id number]) [address] [place] [address] 30273 BARBITURATES Negative Normal NEG [facility] Comment on above: Result Comment: Izabel iturates screening cut off value = 200 ng/mL Performed By: #### D FAGAN #### [facility] ([id number]) [address] [place] [address] 62208 BENZODIAZEPINES Negative Normal NEG [facility] Comment on above: Result Comment: Skyler odiazepines screening cut off value = 200 ng/mL Performed By: #### D FAGAN #### [facility] ([id number]) [address] [place] [address] 85161 CANNABINOIDS Negative Normal NEG [facility] Comment on above: Result Comment: Sabina abinoids/THC screening cut off value = 50 ng/mL Performed By: #### D FAGAN #### [facility] ([id number]) [address] [place] [address] 29279 COCAINE METABOLITE Negative Normal NEG [facility] Comment on above: Result Comment: Coca ine screening cut off value = 300 ng/mL Performed By: #### D FAGAN #### [facility] ([id number]) [address] [place] [address] 11686 ECSTASY Negative Normal NEG [facility] Comment on above: Result Comment: Ecst asy screening cut off value = 500 ng/mL This report is intended for use in clinical monitoring or management of patients. Performed By: #### D FAGAN #### [facility] ([id number]) [address] [place] [id number] METHADONE Negative Normal NEG [facility] Comment on above: Result Comment: Meth adone screening cut off value = 300 ng/mL. Performed By: #### D FAGAN #### [facility] ([id number]) [address] [place] [address] [id number] OPIATES Negative Normal NEG [facility] Comment on above: Result Comment: Opia ann screening cut off value = 300 ng/mL NOTE: This test is used for the detection of codeine, hydrocodone (>1000 ng/mL), morphine and hydromorphone (>900 ng/mL) in urine. Performed By: #### D FAGAN #### [facility] ([id number]) [address] [place] [id number] OXYCODONE Negative Normal NEG [facility] Comment on above: Result Comment: Oxyc odone screening cut off value = 300 ng/mL NOTE: This test is used for the detection of oxycodone and oxymorphone in urine. Performed By: #### D FAGAN #### [facility] ([id number]) [address] [place] [address] [id number] PHENCYCLIDINE Negative Normal NEG [facility] Comment on above: Result Comment: Phen cyclidine screening cut off value = 25 ng/mL Performed By: #### D FAGAN #### [facility] ([id number]) [address] [place] [address] [id number] ETHANOLon 06-24-2024 Ethanol [Mass/Vol] mg/dL Normal 0.00-0.08 [facility] Comment on above: Result Comment: This report is intended for use in clinical monitoring or management of patients. Performed By: #### C BCA, CMP, 5643-2, 3298-7, 4024-6, THYR #### [facility] ([id number]) [address] [place] [address] 12420 Salicylates [Mass/Vol]on SALICYLATE <4.0 Normal 2.0-25.0 [facility] Comment on above: Result Comment: Refe rence ranges are for therapeutic limits. Performed By: #### C BCA, CMP, 5643-2, 3298-7, 4024-6, THYR #### [facility] ([id number]) [address] [place] [address] [id number] THYROID PROFILEon 06-24-2024 Free T4 [Mass/Vol] 0.92 ng/dL Normal 0.61-1.60 [facility] Comment on above: Performed By: #### C BCA, CMP, 5643-2, 3298-7, 4024-6, THYR #### [facility] ([id number]) [address] [place] [address] TSH 4.19 uIU/mL Normal 0.49-4.67 [facility] Comment on above: Performed By: #### C CARRIE, CMP, 5643-2, 3298-7, 4024-6, THYR #### [facility] ([id number]) [address] [place] [address]29[address] URN MACROSCOPIC NURon 2024 BILIRUBIN IRMA Negative Normal NEG [facility] Comment on above: Performed By: #### N UM #### [facility] ([id number]) [address] [place] [address] [place] [address] BLOOD/HGB IRMA Negative Normal NEG [facility] Comment on above: Performed By: #### N UM #### [facility] ([id number]) [address] [place] [address]90[address] GLUCOSE IRMA Negative Normal NEG [facility] Comment on above: Performed By: #### N UM #### [facility] ([id number]) [address] [place] [address] KETONES IRMA Negative Normal NEG [facility] Comment on above: Performed By: #### N UM #### [facility] ([id number]) [address] [place] [address]692 LEUKOCYTE ESTERASE IRMA Negative Normal NEG [facility] Comment on above: Performed By: #### N UM #### [facility] ([id number]) [address] [place] [address] NITRITE IRMA Negative Normal NEG [facility] Comment on above: Performed By: #### N UM #### [facility] ([id number]) [address] [place] [address] 32064 PH IRMA 7.5 Normal 5.0-8.5 [facility] Comment on above: Performed By: #### N UM #### [facility] ([id number]) [address] [place] [address] PROTEIN IRMA Negative Normal NEG [facility] Comment on above: Performed By: #### N UM #### [facility] ([id number]) [address] [place] [address] SPECIFIC GRAVITY IRMA 1.015 Normal 1.003-1.035 [facility] Comment on above: Performed By: #### N UM #### [facility] ([id number]) [address] [place] [address] [place] [address] UROBILINOGEN IRMA 0.2 eu/dL Normal <1.1 [facility] Comment on above: Performed By: #### N UM #### [facility] ([id number]) [address] [place] [address] BMPon 06-21-2024 Anion gap [Moles/Vol] 11 mmol/L Normal 6-16 [facility] Comment on above: Performed By: #### 2 [id number] #### [facility] [address] [place] [address] Calcium [Mass/Vol] 9.0 mg/dL Normal 8.9-11.1 [facility] Comment on above: Performed By: #### 2 [id number] #### [facility] [address] [place] [address] Chloride [Moles/Vol] 102 mmol/L Normal 101-111 [facility] Comment on above: Performed By: #### 2 803152 #### [facility] [address] [place] [address] CO2 [Moles/Vol] 30 mmol/L Normal 21-31 [facility] Comment on above: Performed By: #### 2 [id number] #### [facility] [address] [place] [address] Creatinine [Mass/Vol] 0.9 mg/dL Normal 0.5-1.3 [facility] Comment on above: Performed By: #### 2 [id number] #### [facility] [address] [place] [address] Glucose [Mass/Vol] 108 mg/dL Normal 55-199 [facility] Comment on above: Performed By: #### 2 [id number] #### [facility] [address] [place] [address] Potassium [Moles/Vol] 3.9 mmol/L Normal 3.5-5.3 [facility] Comment on above: Performed By: #### 2 949441 #### [facility] [address] [place] [address] Sodium [Moles/Vol] 139 mmol/L Normal 135-145 [facility] Comment on above: Performed By: #### 2 975208 #### [facility] [address] [place] [address] Urea nitrogen [Mass/Vol] 12 mg/dL Normal 5-21 [facility] Comment on above: Performed By: #### 2 600411 #### [facility] [address] [place] [address] Urea nitrogen/Creatinine [Mass ratio] 13 No Units Normal 10-20 [facility] Comment on above: Performed By: #### 2 284701 #### [facility] [address] [place] [address]990 CBC w/ Auto Diffon 5 Basophils/100 WBC (Bld) 0.6 % Normal 0.0-2.0 [facility] Comment on above: Performed By: #### 2 071323 #### [facility] [address] [place] [address] Basophils/Leukocytes Auto (Bld) [Pure # fraction] 0.0 E9/L Normal 0.0-0.2 [facility] Comment on above: Performed By: #### 2 [id number] #### [facility] [address] [place] [address] Eosinophils (Bld) [#/Vol] 0.0 E9/L Normal 0.0-0.5 [facility] Comment on above: Performed By: #### 2 593460 #### [facility] [address] [place] [address] Eosinophils/100 WBC (Bld) 0.6 % Normal 0.0-8.0 [facility] Comment on above: Performed By: #### 2 922822 #### [facility] [address] [place] [address] Erythrocyte distribution width (RBC) [Ratio] 15.6 % High 10.9-14.2 [facility] Comment on above: Performed By: #### 2 [id number] #### [facility] [address] [place] [address] Hematocrit (Bld) [Volume fraction] 45.0 % Normal 37.7-49.0 [facility] Comment on above: Performed By: #### 2 078380 #### [facility] [address] [place] [address] Hemoglobin (Bld) [Mass/Vol] 14.7 g/dL Normal 13.5-17.5 [facility] Comment on above: Performed By: #### 2 149088 #### [facility] [address] [place] [address] Hypochromia Auto Ql (Bld) PRESENT Invalid Interpretation Code [facility] Comment on above: Performed By: #### 2 012417 #### [facility] [address] [place] [address] Lymphocytes (Bld) [#/Vol] 1.1 E9/L Normal 1.0-4.0 [facility] Comment on above: Performed By: #### 2 356448 #### [facility] [address] [place] [address] Lymphocytes/100 WBC (Bld) 23.5 % Normal 14.0-50.0 [facility] Comment on above: Performed By: #### 2 727613 #### [facility] [address] [place] [address]238 MCH (RBC) [Entitic mass] 24.7 pg Low 27.0-34.0 [facility] Comment on above: Performed By: #### 2 239830 #### [facility] [address] [place] [address] MCHC (RBC) [Mass/Vol] 32.7 g/dL Normal 31.4-36.0 [facility] Comment on above: Performed By: #### 2 349973 #### [facility] [address] [place] [address] MCV (RBC) [Entitic vol] 75.5 fL Low 80.0-100.0 [facility] Comment on above: Performed By: #### 2 250096 #### [facility] [address] [place] [address] Monocytes (Bld) [#/Vol] 0.2 E9/L Normal 0.2-1.0 [facility] Comment on above: Performed By: #### 2 370873 #### [facility] [address] [place] [address] Neutrophils (Bld) [#/Vol] 3.3 E9/L Normal 2.0-7.5 [facility] Comment on above: Performed By: #### 2 942010 #### [facility] [address] [place] [address] Neutrophils/100 WBC (Bld) 70.5 % Normal 36.0-75.0 [facility] Comment on above: Performed By: #### 2 499420 #### [facility] [address] [place] [address] Platelet mean volume (Bld) [Entitic vol] 8.5 fL Normal 6.4-10.8 [facility] Comment on above: Performed By: #### 2 842281 #### [facility] [address] [place] [address] Platelets (Bld) [#/Vol] 167.0 E9/L Normal 150.0-500.0 [facility] Comment on above: Performed By: #### 2 451652 #### [facility] [address] [place] [address] RBC (Bld) [#/Vol] 6.0 E12/L High 4.3-5.9 [facility] Comment on above: Performed By: #### 2 897129 #### [facility] [address] [place] [address] RBC size Nom (Bld) SEE MORPHOLOGY Invalid Interpretation Code [facility] Comment on above: Performed By: #### 2 021988 #### [facility] [address] [place] [address] WBC corrected for nucl RBC Auto (Bld) [#/Vol] 4.6 E9/L Normal 4.0-11.0 [facility] Comment on above: Performed By: #### 2 262526 #### [facility] [address] [place] [address] CHEMISTRYOrdered By: SYSTEM SYSTEM on 06-21-2024 Anion [...] 30.4 s Normal 25.1 - 36.5 second(s) [facility] Auto Coag Comment on above: Interpretive Data: [place] 15 days - 4 weeks 1 - [...] the same coagulation reagent and instrumentation as [facility]. Currently there are no coagulation studies available worldwide for children to 14 days, and no normal ranges. Heparin therapeutic range (represented by Anti-Factor Xa activity of 0.2 - 0.4 U/mL) corresponds to PTT of 56.6 - 109.0 sec. INR Coag (PPP) [Relative time] 1.02 {INR} Invalid Interpretation Code [facility] Comment on above: Interpretive Data: I NR results are specifically intended to assess patients stabilized on long-term Anticoagulation therapy suggested INR s Less Intensive Anticoagulation 2.0 3.0 Conventional Range 3.0 4.5 PT Coag (PPP) [Time] 11.4 s Normal 9.4 - 1 2.5 second(s) [facility] Comment on above: Interpretive Data: [...] the same coagulation reagent and instrumentation as [facility]. Currently there are no coagulation studies available [...] Heme Hypochromia Auto Ql (Bld) PRESENT *NA* (1/2/25 10:50 AM) Invalid Interpretation Code Remisol Heme [...] Coag (PPP) [Time] 30.4 second(s) Normal 25.1-36.5 [facility] Comment on above: Result Comment: Para [...] the same coagulation reagent and instrumentation as [facility]. Currently there are no coagulation studies available worldwide for children to 14 days, and no normal ranges. Heparin therapeutic range (represented by Anti-Factor Xa activity of 0.2 - 0.4 U/mL) corresponds to PTT of 56.6 - 109.0 sec. Performed By: #### 1 [id number] #### [facility] [address] [place] [address] INR Coag (PPP) [Relative time] 1.02 {INR} Invalid Interpretation Code [facility] Comment on above: Result Comment: INR results are specifically intended to assess patients stabilized on long-term Anticoagulation therapy suggested INR???s ???Less Intensive Anticoagulation??? 2.0 ??? 3.0 Conventional Range 3.0 ??? 4.5 Performed By: #### 1 [id number] #### [facility] [address] [place] [address] PT Coag (PPP) [Time] 11.4 second(s) Normal 9.4-12.5 [facility] Comment on above: Result Comment: 15 [...] the same coagulation reagent and instrumentation as [facility]. Currently there are no coagulation studies available worldwide for children to 14 days, and no normal ranges. Performed By: #### 1 [id number] #### [facility] [address] [place] [address] UA with Cult Rflxon 06-21-19 25 Bilirubin Ql (U) Negative Normal Negative [facility] Comment on above: Performed By: #### 4 [id number] #### [facility] [address] [place] [address] Clarity (U) Clear Normal Clear [facility] Comment on above: Performed By: #### 4 [id number] #### [facility] [address] [place] [address] Color (U) Colorless Abnormal Yellow [facility] Comment on above: Result Comment: Micr oscopic readings are only performed on those samples that meet specific criteria set forth by [facility]. Performed By: #### 4 [id number] #### [facility] [address] [place] [address] Glucose Ql (U) Negative Normal Negative [facility] Comment on above: Performed By: #### 4 [id number] #### [facility] [address] [place] [address] Hemoglobin Auto test strip (U) [Mass/Vol] Negative Normal Negative [facility] Comment on above: Performed By: #### 4 [id number] #### [facility] [address] [place] [address] Ketones Auto test strip Ql (U) Negative Normal Negative [facility] Comment on above: Performed By: #### 4 [id number] #### [facility] [address] [place] [address] Leukocyte esterase Auto test strip Ql (U) Negative Normal Negative [facility] Comment on above: Performed By: #### 4 [id number] #### [facility] [address] [place] [address] Nitrite Auto test strip Ql (U) Negative Normal Negative [facility] Comment on above: Performed By: #### 4 [id number] #### [facility] [address] [place] [address] pH (U) 7.0 [pH] Invalid Interpretation Code 5.0-9.0 [facility] Comment on above: Performed By: #### 4 [id number] #### [facility] [address] [place] [id number] Protein Ql (U) Negative Normal Negative [facility] Comment on above: Performed By: #### 4 [id number] #### [facility] [address] [place], [place] [address] Specific gravity (U) [Rel density] 1.005 Invalid Interpretation Code 1.005-1.030 [facility] Comment on above: Performed By: #### 4 [id number] #### [facility] [address] [place], [place] [address] Urobilinogen (U) [Mass/Vol] Negative Normal Negative [facility] Comment on above: Performed By: #### 4 [id number] #### [facility] [address] [place], [place] [address] Type of Urine collection method Clean Catch Normal [facility] Comment on above: Performed By: #### 4 [id number] #### [facility] [address] [place], [place] [address] URINALYSISOrdered By: SYSTEM SYSTEM on 06-21-2024 Bilirubin Ql (U) Negative Normal Negativemg/ dL [facility] UA Auto SS Clarity (U) Clear (06/21/24 11:04 AM) Normal Clear [facility] UA Auto SS Color (U) Colorless 1 *ABN* (06/21/24 11:04 AM) Invalid Interpretation Code Yellow [facility] UA Auto SS Comment on above: Interpretive Data: M icroscopic readings are only performed on those samples that meet specific criteria set forth by [facility]. Glucose Ql (U) Negative Normal Negativemg/ dL [facility] UA Auto SS Hemoglobin Auto test strip (U) [Mass/Vol] Negative Normal Negativemg/ dL [facility] UA Auto SS Ketones Auto test strip Ql (U) Negative Normal Negativemg/ dL FT UA Auto SS Leukocyte esterase Auto test strip Ql (U) Negative Normal NegativeLeu /uL FT UA Auto SS Nitrite Auto test strip Ql (U) Negative Normal Negativemg/ dL FT UA Auto SS pH (U) 7.0 *NA* (06/21/24 11:04 AM) Invalid Interpretation Code 5.0 - 9.0 [facility] UA Auto SS Protein Ql (U) Negative Normal Negativemg/ dL [facility] UA Auto SS Specific gravity (U) [Rel density] 1.005 *NA* (06/21/24 11:04 AM) Invalid Interpretation Code 1.005 - 1.030 [facility] UA Auto SS Urobilinogen (U) [Mass/Vol] Negative Normal Negativemg/ dL [facility] UA Auto SS URINALYSISOrdered By: Peter Larios on 06-21-2024 UA Spec Desc Clean Catch (06/21/24 11:04 AM) Normal [facility] UA Auto SS XR Chest 2 Viewson [...] mGy = na DAP = na Normal [facility] eGFRon 06-21-2024 eGFR 98 mL/min/1.73 m2 Normal >=59 [facility] Comment on above: Performed By: #### 1 [id number] #### [facility] [address] [place] [address] Provider Letteron 04-18-2024 Provider Letter Provider Letter April 18, 2024 NOÉ JEFFERY [address] [place] [phone] : 1965 Dear, I am corresponding with [...] Sincerely, Dr. Danni Graham [facility] [address] [place] [address] Normal [facility] ISTAT XRay CREon 03-15-2024 ISTAT GFR > 60.0 Normal [facility] Comment on above: Result Comment: PERF ORMED BY: [place] [address] PATHOLOGIST [employer] NALDO SALDIVAR M.D. Performed By: #### I SCRE #### [address] MR prostate wo/w conon 03-15 MR prostate wo/w con [facility] [place] [address] [place] [address] MRI Report Signed Patient: Noé Jeffery MR#: [id number] 89 : 1965 Acct:[id number] Age/Sex: 58 / M ADM Date: 03/15/24 Loc: Room: Type: [facility] Attending Dr: Danni Graham MD Copies to: [...] Anne Jr., Brittany03/15/2024 3:05 PM Dictation Location: [place] [address] Transcribed By: [facility] 03/15/24 1505 Dictated By: Esdras Anne Jr, DO 03/15/24 1501 Signed By: 03/15/24 1505 Normal [facility] No Panel InformationOrdered By: Danni Graham on 03-15-2024 Bedside Estimated GFR (eGFR) > 60.0 [facility] Whole blood creatinine measu rementOrdered By: Danni Graham on 03-15-2024 Creatinine [Mass/Vol] 1.0 mg/dL Normal 0.6-1.3 [facility] Comment on above: ER/ESD physician is notified/shown all ISTAT results.Critical values may be confirmed by laboratory testing ifdeemed necessary by ER attending doctor. Result Comment: ER/E SD physician is notified/shown all ISTAT results. Critical values may be confirmed by laboratory testing if deemed necessary by ER attending doctor. Performed By: #### I SCRE #### [facility] [address] [place] [address] RITO by [facility] 10-25-2022 Antinuclear Antibodies, IFA Negative Normal [facility] Comment on above: Result Comment: Nega tive <1:80 Borderline 1:80 Positive >1:80 ICAP nomenclature: AC-0 For more information about Hep-2 cell patterns use ANApatterns.org, the official website for the International Consensus on Antinuclear Antibody (RITO) Patterns (ICAP). Performed By: #### T 7, TSH, CMP, LISANDRA, LIPA, LIPID #### [facility] [address] [place] [address] Dr. Janell Marquez ANTISTREPTOLYSIN O AB (ASO)o n 10-22-2022 Antistreptolysin O Ab 45.9 IU/mL Normal 0.0-200.0 [facility] Comment on above: Performed By: #### A SOAB #### [facility] [address] [place] [address] Dr. Janell Marquez RHEUMATOID FACTORon 10-23-19 RA Latex Turbid. <10.0 Normal <14.0 [facility] Comment on above: Performed By: #### R F #### [facility] [address] [place] [address] Dr. Janell Marquez CBC AUTO DIFFon 10-21-2022 BASO # 0.0 103/ul Normal 0.0-0.1 [facility] Comment on above: Performed By: #### T 7, TSH, CMP, LISANDRA, LIPA, LIPID #### [facility] [address] [place] [address] Dr. Janell Marquez Basophils/100 WBC (Bld) 0.4 % Normal 0.2-2.0 [facility] Comment on above: Performed By: #### T 7, TSH, CMP, LISANDRA, LIPA, LIPID #### [facility] [address] [place] [address] Dr. Janell Marquez EO # 0.0 103/ul Normal 0.0-0.7 [facility] Comment on above: Performed By: #### T 7, TSH, CMP, LISANDRA, LIPA, LIPID #### [facility] [address] [place] [address] Dr. Janell Marquez Eosinophils/100 WBC (Bld) 0.7 % Critically low 0.9-7.0 [facility] Comment on above: Performed By: #### T 7, TSH, CMP, LISANDRA, LIPA, LIPID #### [facility] [address] [place] [address] Dr. Janell Marquez Erythrocyte distribution width (RBC) [Ratio] 16.1 % Critically high 11.0-15.0 [facility] Comment on above: Performed By: #### T 7, TSH, CMP, LISANDRA, LIPA, LIPID #### [facility] [address] [place] [address] Dr. Janell Marquez Hematocrit (Bld) [Volume fraction] 48.8 % Normal 42.0-54.0 [facility] Comment on above: Performed By: #### T 7, TSH, CMP, LISANDRA, LIPA, LIPID #### [facility] [address] [place] [address] Dr. Janell Marquez Hemoglobin (Bld) [Mass/Vol] 15.3 g/dL Normal 14.0-18.0 [facility] Comment on above: Performed By: #### T 7, TSH, CMP, LISANDRA, LIPA, LIPID #### [facility] [address] [place] [address] Dr. Janell Marquez IG # 0.02 10e3/ul Normal 0.00-0.03 [facility] Comment on above: Performed By: #### T 7, TSH, CMP, LISANDRA, LIPA, LIPID #### [facility] [address] [place] [address] Dr. Janell Marquez IG % 0.4 % Normal 0.0-0.5 [facility] Comment on above: Performed By: #### T 7, TSH, CMP, LISANDRA, LIPA, LIPID #### [facility] [address] [place] [address] Dr. Janell Marquez LYMPH # 1.3 103/ul Normal 1.2-3.8 [facility] Comment on above: Performed By: #### T 7, TSH, CMP, LISANDRA, LIPA, LIPID #### [facility] [address] [place] [address] Dr. Janell Marquez Lymphocytes/100 WBC (Bld) 29.0 % Normal 20.5-60.0 [facility] Comment on above: Performed By: #### T 7, TSH, CMP, LISANDRA, LIPA, LIPID #### [facility] [address] [place] [address] Dr. Janell Marquez MANUAL DIFF REQ NO Normal [facility] Comment on above: Performed By: #### T 7, TSH, CMP, LISANDRA, LIPA, LIPID #### [facility] [address] [place] [address] Dr. Janell Marquez MCH (RBC) [Entitic mass] 23.5 pg Critically low 25.9-34.0 [facility] Comment on above: Performed By: #### T 7, TSH, CMP, LISANDRA, LIPA, LIPID #### [facility] [address] [place] [address] Dr. Janell Marquez MCHC (RBC) [Mass/Vol] 31.4 g/dL Normal 29.9-35.2 [facility] Comment on above: Performed By: #### T 7, TSH, CMP, LISANDRA, LIPA, LIPID #### [facility] [address] [place] [address] Dr. Janell Marquez MCV (RBC) [Entitic vol] 74.8 fL Critically low 80.0-94.0 [facility] Comment on above: Performed By: #### T 7, TSH, CMP, LISANDRA, LIPA, LIPID #### [facility] [address] [place] [address] Dr. Janell Marquez MONO # 0.3 103/ul Normal 0.3-0.8 [facility] Comment on above: Performed By: #### T 7, TSH, CMP, LISANDRA, LIPA, LIPID #### [facility] [address] [place] [address] Dr. Janell Marquez Monocytes/100 WBC (Bld) 7.4 % Normal 1.7-12.0 [facility] Comment on above: Performed By: #### T 7, TSH, CMP, LISANDRA, LIPA, LIPID #### [facility] [address] [place] [address] [address] Janell Marquez NEUT # 2.9 103/ul Normal 1.4-6.5 [facility] Comment on above: Performed By: #### T 7, TSH, CMP, LISANDRA, LIPA, LIPID #### [facility] [address] [place] [address] [address] Janell Marquez Neutrophils/100 WBC (Bld) 62.1 % Normal 43.0-75.0 [facility] Comment on above: Performed By: #### T 7, TSH, CMP, LISANDRA, LIPA, LIPID #### [facility] [address] [address] [address] Janell Marquez Platelet mean volume (Bld) [Entitic vol] 9.3 fL Critically low 9.5-13.5 [facility] Comment on above: Performed By: #### T 7, TSH, CMP, LISANDRA, LIPA, LIPID #### [facility] [address] [address] [address] Janell Marquez PLT 203 103/ul Normal 150-450 [facility] Comment on above: Performed By: #### T 7, TSH, CMP, LISANDRA, LIPA, LIPID #### [facility] [address] [place] [address] Dr. Janell Marquez RBC 6.52 106/ul Critically high 4.70-6.10 [facility] Comment on above: Performed By: #### T 7, TSH, CMP, LISANDRA, LIPA, LIPID #### [facility] [address] [place] [address] Dr. Janell Marquez WBC 4.6 103/ul Normal 4.0-11.0 [facility] Comment on above: Performed By: #### T 7, TSH, CMP, LISANDRA, LIPA, LIPID #### [facility] [address] [place] [address] Dr. Janell Marquez CRPon 10-21-2022 CRP [Mass/Vol] mg/L Normal <=1.0 [facility] Comment on above: Performed By: #### T 7, TSH, CMP, LISANDRA, LIPA, LIPID #### [facility] [address] [address] [address] Janell Marquez SED RATE WESTERGRENon 2022 SED RATE 30 mm/hr Critically high <=20 [facility] Comment on above: Performed By: #### T 7, TSH, CMP, LISANDRA, LIPA, LIPID #### [facility] [address] [address] [address] Janell Marquez URIC ACID SERUMon 10-21-2022 Urate [Mass/Vol] 4.3 mg/dL Normal 3.5-7.2 [facility] Comment on above: Performed By: #### T 7, TSH, CMP, LISANDRA, LIPA, LIPID #### [facility] [address] [address] [address] Janell Marquez CSF MANUAL DIFFon 10-12-2022 Diff Total, CSF 57 cells counted [facility] Lymph%, CSF 91 % High 50 - 90 % [facility]ennifer Morton%, CSF 9 % Low 10 - 50 % [facility] ic Cell count panel (CSF)on Clarity (CSF) Clear Clear [facility] Clarity (Unsp spec) Not Indicated Clear [facility] Color (CSF) Colorless Colorless [facility] Color (Spun CSF) Not Indicated Colorless [facility] CSF Tube Number Tube [address] [facility] RBC Manual cnt (CSF) [#/Vol] 3 cells/uL 0 - 5 cells/uL [facility] WBC Manual cnt (CSF) [#/Vol] 1 cells/uL 0 - 5 cells/uL [facility] GLUCOSE CSFon 10-12-2022 Glucose (CSF) [Mass/Vol] 57 mg/dL 40 - 70 mg/dL [facility] PROTEIN CSFon 10-12-2022 Protein (CSF) [Mass/Vol] 32 mg/dL 15 - 45 mg/dL [facility] TOURTELLOTTE BLOODon 10-12- 023 [facility] ic ALLIED HEALTHon 05-07-2022 ALLIED HEALTH HNO ID: [id number] Author: Nicole Girard, office associate Service: Radiology Author Type: Batch Still Operator Type: Allied Health Filed: 05/07/2022 1:54 [...] DATA: Not applicable SIGNED BY: Nicole Huffman, office associate May 07, 2022 1:31 PM [facility] MRI 3D POST PROCESSINGon MRI 3D POST PROCESSING * * *Final Report* * * DATE OF EXAM: May 07 2022 1:47PM [facility] 0280 - MRI 3D POST PROCESSING / PROCEDURE REASON: Cognitive changes * * * * Physician Interpretation * * * * EXAMINATION: MRI BRAIN WO IVCON, MRI 3D POST PROCESSING CLINICAL HISTORY: Cognitive changes TECHNIQUE: Axial FLORIDALMA FLAIR, FLORIDALMA T2, diffusion and susceptibility weighted imaging without contrast, using the ADNI dementia protocol and 3-D post-processing using the [employer] software at an independent workstation with concurrent [...] = Focal Lesions 2 = Beginning of Pendroy 3 = Diffuse Involvement of Entire Region [...] results from the analysis charts for details. Care Services Manager: MARISELA Transcribe Date/Time: May 07 2022 2:51P Dictated by : MANISH PRICE MD This examination was interpreted and the report reviewed and electronically signed by: MANISH PRICE MD on May 07 2022 3:06PM EST [id number] CN Normal [facility] MRI BRAIN WO IVCONon 18-2 022 MRI BRAIN WO IVCON * * *Final Report* * * DATE OF EXAM: May 07 2022 1:47PM [facility] 0294 - MRI BRAIN WO IVCON / PROCEDURE REASON: Cognitive changes * * * * Physician Interpretation * * * * EXAMINATION: MRI BRAIN WO IVCON, MRI 3D POST PROCESSING CLINICAL HISTORY: Cognitive changes TECHNIQUE: Axial FLORIDALMA FLAIR, FLORIDALMA T2, diffusion and susceptibility weighted imaging without contrast, using the ADNI dementia protocol and 3-D post-processing using the [employer] software at an independent workstation with concurrent [...] = Focal Lesions 2 = Beginning of Pendroy 3 = Diffuse Involvement of Entire Region [...] results from the analysis charts for details. Care Services Manager: MARISELA Transcribe Date/Time: May 07 2022 2:51P Dictated by : MANISH PRICE MD This examination was interpreted and the report reviewed and electronically signed by: MANISH PRICE MD on May 07 2022 3:06PM EST [id number] Critical access hospital Panel Informationon 05-07 [facility] MRI BRAIN WO W CONon MRI BRAIN [...] LUCIE TOWNSEND Date: 2022-01-21 17:28 Normal [facility] US CAROTID ART BILon US CAROTID [...] LUCIE TOWNSEND Date: 2022-01-21 17:18 Normal [facility] H PYLORI ANTIBODY IGGon 12-19 H. PYLORI IGG ABS 0.72 Index Value Normal 0.00-0.79 [facility] Comment on above: Result Comment: Nega tive <0.80 Equivocal 0.80 - 0.89 Positive >0.89 Performed By: #### H PYLLC #### [facility] [address] [place] [address] Dr. Janell UGARTEon 01-13-2022 Insulin 15.8 uIU/mL Normal 2.6-24.9 [facility] Comment on above: Performed By: #### T 7, TSH, CMP, LISANDRA, LIPA, LIPID #### [facility] [address] [address] [address] Janell Marquez VIT D 25-OH LABCORPon 2021 Vitamin D, 25-Hydroxy 29.7 ng/mL Critically low 30.0-100.0 [facility] Comment on above: Result Comment: Nelsy min D deficiency has been defined by the [place] of Medicine and an Endocrine Society practice guideline as a level of serum 25-OH vitamin D less than 20 ng/mL (1,2). The Endocrine Society went on to further define vitamin D insufficiency as a level between 21 and 29 ng/mL (2). 1. IOM ([place] of Medicine). 2010. Dietary reference intakes for calcium and D. [place]: The National Academies Press. 2. Kevin MF, Mey LOPEZ, Bharat SPENCER, et al. Evaluation, treatment, and prevention of vitamin D deficiency: an Endocrine Society clinical practice guideline. JCEM. 2010; 96(7):1911-30. Performed By: #### T 7, TSH, CMP, LISANDRA, LIPA, LIPID #### [facility] [address] [address] [address] Janell Marquez AMMONIAon 01-12-2022 Ammonia (P) [Mass/Vol] ug/dL Critically low 11-32 [facility] Comment on above: Performed By: #### T 7, TSH, CMP, LISANDRA, LIPA, LIPID #### [facility] [address] [address] [address] Janell Marquez AMYLASEon 01-12-2022 Amylase [Catalytic activity/Vol] 49 U/L Normal 25-115 [facility] Comment on above: Performed By: #### T 7, TSH, CMP, LISANDRA, LIPA, LIPID #### [facility] [address] [address] [address] Janell Marquez CBC AUTO DIFFon 01-12-2022 BASO # 0.0 103/ul Normal 0.0-0.1 [facility] Comment on above: Performed By: #### T 7, TSH, CMP, LISANDRA, LIPA, LIPID #### [facility] [address] [place] [address] Dr. Janell Marquez Basophils/100 WBC (Bld) 0.2 % Normal 0.2-2.0 [facility] Comment on above: Performed By: #### T 7, TSH, CMP, LISANDRA, LIPA, LIPID #### [facility] [address] [place] [address] Dr. Janell Marquez EO # 0.0 103/ul Normal 0.0-0.7 [facility] Comment on above: Performed By: #### T 7, TSH, CMP, LISANDRA, LIPA, LIPID #### [facility] [address] [place] [address] Dr. Janell Marquez Eosinophils/100 WBC (Bld) 0.3 % Critically low 0.9-7.0 [facility] Comment on above: Performed By: #### T 7, TSH, CMP, LISANDRA, LIPA, LIPID #### [facility] [address] [place] [address] Dr. Janell Marquez Erythrocyte distribution width (RBC) [Ratio] 16.0 % Critically high 11.0-15.0 [facility] Comment on above: Performed By: #### T 7, TSH, CMP, LISANDRA, LIPA, LIPID #### [facility] [address] [place] [address] Dr. Janell Marquez Hematocrit (Bld) [Volume fraction] 46.8 % Normal 42.0-54.0 [facility] Comment on above: Performed By: #### T 7, TSH, CMP, LISANDRA, LIPA, LIPID #### [facility] [address] [place] [address] Dr. Janell Marquez Hemoglobin (Bld) [Mass/Vol] 14.9 g/dL Normal 14.0-18.0 [facility] Comment on above: Performed By: #### T 7, TSH, CMP, LISANDRA, LIPA, LIPID #### [facility] [address] [place], [place] [id number] Dr. Janell Marquez IG # 0.01 10e3/ul Normal 0.00-0.03 [facility] Comment on above: Performed By: #### T 7, TSH, CMP, LISANDRA, LIPA, LIPID #### [facility] [address] [place] [address] Dr. Janell Marquez IG % 0.2 % Normal 0.0-0.5 [facility] Comment on above: Performed By: #### T 7, TSH, CMP, LISANDRA, LIPA, LIPID #### [facility] [address] [place] [address] Dr. Janell Marquez LYMPH # 1.0 103/ul Critically low 1.2-3.8 [facility] Comment on above: Performed By: #### T 7, TSH, CMP, LISANDRA, LIPA, LIPID #### [facility] [address] [place] [address] Dr. Janell Marquez Lymphocytes/100 WBC (Bld) 16.2 % Critically low 20.5-60.0 [facility] Comment on above: Performed By: #### T 7, TSH, CMP, LISANDRA, LIPA, LIPID #### [facility] [address] [place] [address] Dr. Janell Marquez MANUAL DIFF REQ NO Normal [facility] Comment on above: Performed By: #### T 7, TSH, CMP, LISANDRA, LIPA, LIPID #### [facility] [address] [place] [address] Dr. Janell Marquez MCH (RBC) [Entitic mass] 23.9 pg Critically low 25.9-34.0 [facility] Comment on above: Performed By: #### T 7, TSH, CMP, LISANDRA, LIPA, LIPID #### [facility] [address] [place] [address] Dr. Janell Marquez MCHC (RBC) [Mass/Vol] 31.8 g/dL Normal 29.9-35.2 [facility] Comment on above: Performed By: #### T 7, TSH, CMP, LISANDRA, LIPA, LIPID #### [facility] [address] [address] [address] Janell Marquez MCV (RBC) [Entitic vol] 75.0 fL Critically low 80.0-94.0 [facility] Comment on above: Performed By: #### T 7, TSH, CMP, LISANDRA, LIPA, LIPID #### [facility] [address] [place] [address] Dr. Janell Marquez MONO # 0.4 103/ul Normal 0.3-0.8 [facility] Comment on above: Performed By: #### T 7, TSH, CMP, LISANDRA, LIPA, LIPID #### [facility] [address] [place] [address] Dr. Janell Marquez Monocytes/100 WBC (Bld) 6.0 % Normal 1.7-12.0 [facility] Comment on above: Performed By: #### T 7, TSH, CMP, LISANDRA, LIPA, LIPID #### [facility] [address] [place] [address] Dr. Janell Marquez NEUT # 4.5 103/ul Normal 1.4-6.5 [facility] Comment on above: Performed By: #### T 7, TSH, CMP, LISANDRA, LIPA, LIPID #### [facility] [address] [place] [address] Dr. Janell Marquez Neutrophils/100 WBC (Bld) 77.1 % Critically high 43.0-75.0 [facility] Comment on above: Performed By: #### T 7, TSH, CMP, LISANDRA, LIPA, LIPID #### [facility] [address] [place] [address] Dr. Janell Marquez Platelet mean volume (Bld) [Entitic vol] 9.3 fL Critically low 9.5-13.5 [facility] Comment on above: Performed By: #### T 7, TSH, CMP, LISANDRA, LIPA, LIPID #### [facility] [address] [place] [address] Dr. Janell Marquez PLT 202 103/ul Normal 150-450 [facility] Comment on above: Performed By: #### T 7, TSH, CMP, LISANDRA, LIPA, LIPID #### [facility] [address] [address] [address] Janell Marquez RBC 6.24 106/ul Critically high 4.70-6.10 [facility] Comment on above: Performed By: #### T 7, TSH, CMP, LISANDRA, LIPA, LIPID #### [facility] [address] [address] [address] Janell Marquez WBC 5.9 103/ul Normal 4.0-11.0 [facility] Comment on above: Performed By: #### T 7, TSH, CMP, LISANDRA, LIPA, LIPID #### [facility] [address] [address] [address] Janell Marquez FREE THYROXINE INDEX T7on FTI 3.14 Normal 1.30-4.50 [facility] Comment on above: Performed By: #### T 7, TSH, CMP, LISANDRA, LIPA, LIPID #### [facility] [address] [address] [address] Janell Marquez T3U 32.0 % Critically low 33.0-40.0 [facility] Comment on above: Performed By: #### T 7, TSH, CMP, LISANDRA, LIPA, LIPID #### [facility] [address] [address] [address] Janell Marquez T4 [Mass/Vol] 9.80 ug/dL Normal 4.50-12.10 [facility] Comment on above: Performed By: #### T 7, TSH, CMP, LISANDRA, LIPA, LIPID #### [facility] [address] [address] [address] Janell Marquez GLYCOHEMOGLOBIN A1Con 2021 ADA RECOMMENDATION SEE BELOW Normal [facility] Comment on above: Result Comment: ADA RECOMMENDED LIMIT 4.0 - 6.0 ADA THERAPEUTIC TARGET < 7.0 ACTION SUGGESTED > 7.0 Performed By: #### A 1C #### [facility] [address] [place] [address] Dr. Janell Marquez Glucose [Mass/Vol] 120 mg/dL Normal [facility] Comment on above: Performed By: #### A 1C #### [facility] [address] [place] [address] Dr. Janell Marquez HbA1c (Bld) [Mass fraction] 5.8 % Normal 4.5-6.2 [facility] Comment on above: Performed By: #### A 1C #### [facility] [address] [place] [address] Dr. Janell Marquez IRONon 01-12-2022 Iron [Mass/Vol] 70.0 ug/dL Normal 65.0-175.0 [facility] Comment on above: Performed By: #### T 7, TSH, CMP, LISANDRA, LIPA, LIPID #### [facility] [address] [place] [address] Dr. Janell Marquez LIPASEon 01-12-2022 Lipase [Catalytic activity/Vol] 72.0 U/L Critically low 73.0-393.0 [facility] Comment on above: Performed By: #### T 7, TSH, CMP, LISANDRA, LIPA, LIPID #### [facility] [address] [place] [address] Dr. Janell Marquez LIPID PROFILEon 01-12-2022 CHOL-HDL RATIO NORM SEE BELOW Normal [facility] Comment on above: Result Comment: 3.3 - 4.4 LOW RISK 4.4 - 7.1 AVERAGE RISK 7.1 - 11.0 MODERATE RISK >11.0 HIGH RISK Performed By: #### T 7, TSH, CMP, LISANDRA, LIPA, LIPID #### [facility] [address] [place] [address] Dr. Janell Marquez Cholesterol [Mass/Vol] 220 mg/dL Critically high <=200 [facility] Comment on above: Performed By: #### T 7, TSH, CMP, LISANDRA, LIPA, LIPID #### [facility] [address] [place] [address] Dr. Janell Marquez Cholesterol in HDL [Mass/Vol] 47 mg/dL Normal 40-60 [facility] Comment on above: Performed By: #### T 7, TSH, CMP, LISANDRA, LIPA, LIPID #### [facility] [address] [place] [address] Dr. Janell Marquez Cholesterol in LDL [Mass/Vol] 157.4 mg/dL Normal [facility] Comment on above: Performed By: #### T 7, TSH, CMP, LISANDRA, LIPA, LIPID #### [facility] [address] [address] [address] Janell Marquez Cholesterol.total/Cho lesterol in HDL [Mass ratio] 4.7 {ratio} Normal [facility] Comment on above: Performed By: #### T 7, TSH, CMP, LISANDRA, LIPA, LIPID #### [facility] [address] [address] [address] Janell Marquez HDL NORMAL > or = 60 mg/dl - LOW CARDIOVASCULAR RISK <40 mg/dl - HIGH CARDIOVASCULAR RISK Normal [facility] Comment on above: Performed By: #### T 7, TSH, CMP, LISANDRA, LIPA, LIPID #### [facility] [address] [address] [address] Janell Marquez LDL CALC NORMAL SEE BELOW Normal [facility] Comment on above: Result Comment: <100 mg/dl OPTIMAL 100 - 129 mg/dl NEAR OR ABOVE OPTIMAL 130 - 159 mg/dl BORDERLINE HIGH 160 - 189 mg/dl HIGH >190 mg/dl VERY HIGH Performed By: #### T 7, TSH, CMP, LISANDRA, LIPA, LIPID #### [facility] [address] [address] [address] Janell Marquez Triglyceride [Mass/Vol] 78 mg/dL Normal <=150 [facility] Comment on above: Performed By: #### T 7, TSH, CMP, LISANDRA, LIPA, LIPID #### [facility] [address] [address] [address] Janell Marquez VLDL CALC 15.6 mg/dL Normal [facility] Comment on above: Performed By: #### T 7, TSH, CMP, LISANDRA, LIPA, LIPID #### [facility] [address] [address] [address] Janell Marquez PROF 14(COMP METB)on 022 Albumin [Mass/Vol] 3.5 g/dL Normal 3.4-5.0 [facility] Comment on above: Performed By: #### T 7, TSH, CMP, LISANDRA, LIPA, LIPID #### [facility] [address] [place] [address] Dr. Janell Marquez Albumin/Globulin [Mass ratio] 0.9 {ratio} Normal [facility] Comment on above: Performed By: #### T 7, TSH, CMP, LISANDRA, LIPA, LIPID #### [facility] [address] [place] [address] Dr. Janell Marquez ALP [Catalytic activity/Vol] 69 U/L Normal 46-116 [facility] Comment on above: Performed By: #### T 7, TSH, CMP, LISANDRA, LIPA, LIPID #### [facility] [address] [place] [address] Dr. Janell Marquez ALT [Catalytic activity/Vol] 19 U/L Normal 16-63 [facility] Comment on above: Performed By: #### T 7, TSH, CMP, LISANDRA, LIPA, LIPID #### [facility] [address] [place] [address] Dr. Janell Marquez Anion gap [Moles/Vol] 12.1 mmol/L Normal [facility] Comment on above: Performed By: #### T 7, TSH, CMP, LISANDRA, LIPA, LIPID #### [facility] [address] [place] [address] Dr. Janell Marquez AST [Catalytic activity/Vol] 15 U/L Normal 15-37 [facility] Comment on above: Performed By: #### T 7, TSH, CMP, LISANDRA, LIPA, LIPID #### [facility] [address] [place] [address] Dr. Janell Marquez Bilirubin [Mass/Vol] 0.8 mg/dL Normal 0.2-1.0 [facility] Comment on above: Performed By: #### T 7, TSH, CMP, LISANDRA, LIPA, LIPID #### [facility] [address] [place] [address] Dr. Janell Marquez Calcium [Mass/Vol] 8.5 mg/dL Normal 8.5-10.1 [facility] Comment on above: Performed By: #### T 7, TSH, CMP, LISANDRA, LIPA, LIPID #### [facility] [address] [address] [address] Janell Marquez Chloride [Moles/Vol] 105 mmol/L Normal 98-107 [facility] Comment on above: Performed By: #### T 7, TSH, CMP, LISANDRA, LIPA, LIPID #### [facility] [address] [address] [address] Janell Marquez CO2 [Moles/Vol] 28.0 mmol/L Normal 21.0-32.0 [facility] Comment on above: Performed By: #### T 7, TSH, CMP, LISANDRA, LIPA, LIPID #### [facility] [address] [place] [address] Dr. Janell Marquez Creatinine [Mass/Vol] 1.11 mg/dL Normal 0.70-1.30 [facility] Comment on above: Performed By: #### T 7, TSH, CMP, LISANDRA, LIPA, LIPID #### [facility] [address] [place] [address] Dr. Janell Marquez EGFR-AF STATELESS >60 Normal >=60 [facility] Comment on above: Performed By: #### T 7, TSH, CMP, LISANDRA, LIPA, LIPID #### [facility] [address] [place] [address] Dr. Janell Marquez EGFR-NON AF STATELESS >60 Normal >=60 [facility] Comment on above: Performed By: #### T 7, TSH, CMP, LISANDRA, LIPA, LIPID #### [facility] [address] [place] [address] Dr. Janell Marquez Globulin (S) [Mass/Vol] 3.7 g/dL Normal [facility] Comment on above: Performed By: #### T 7, TSH, CMP, LISANDRA, LIPA, LIPID #### [facility] [address] [place] [address] Dr. Janell Marquez Glucose [Mass/Vol] 115 mg/dL Critically high 74-106 [facility] Comment on above: Performed By: #### T 7, TSH, CMP, LISANDRA, LIPA, LIPID #### [facility] [address] [place] [address] Dr. Janell Marquez Potassium [Moles/Vol] 4.1 mmol/L Normal 3.5-5.1 [facility] Comment on above: Performed By: #### T 7, TSH, CMP, LISANDRA, LIPA, LIPID #### [facility] [address] [place] [address] Dr. Janell Marquez Protein [Mass/Vol] 7.2 g/dL Normal 6.4-8.2 [facility] Comment on above: Performed By: #### T 7, TSH, CMP, LISANDRA, LIPA, LIPID #### [facility] [address] [place] [address] Dr. Janell Marquez Sodium [Moles/Vol] 141 mmol/L Normal 136-145 [facility] Comment on above: Performed By: #### T 7, TSH, CMP, LISANDRA, LIPA, LIPID #### [facility] [address] [place] [address] Dr. Janell Marquez Urea nitrogen [Mass/Vol] 16.0 mg/dL Normal 7.0-18.0 [facility] Comment on above: Performed By: #### T 7, TSH, CMP, LISANDRA, LIPA, LIPID #### [facility] [address] [place] [address] Dr. Janell Marquez Urea nitrogen/Creatinine [Mass ratio] 14.4 mg/mg Normal [facility] Comment on above: Performed By: #### T 7, TSH, CMP, LISANDRA, LIPA, LIPID #### [facility] [address] [place] [address] Dr. Janell Marquez TSHon 01-12-2022 TSH 1.412 uIU/mL Normal 0.358-3.740 [facility] Comment on above: Performed By: #### T 7, TSH, CMP, LISANDRA, LIPA, LIPID #### [facility] [address] [place] [address] Dr. Janell Marquez VIT B12 AND FOLATEon 022 Cobalamin (Vitamin B12) [Mass/Vol] 411.0 pg/mL Normal 193.0-986.0 [facility] Comment on above: Performed By: #### T 7, TSH, CMP, LISANDRA, LIPA, LIPID #### [facility] [address] [place], [place] [address] Dr. Janell Marquez FOLATE 11.10 ng/mL Normal 8.60-58.90 [facility] Comment on above: Performed By: #### T 7, TSH, CMP, LISANDRA, LIPA, LIPID #### [facility] [address] [place], [place] [address] Dr. Janell Marquez BASIC METABOLIC PANELon Calcium [Mass/Vol] 8.3 mg/dL Low 8.6-10.3 [facility] Comment on above: Order Comment: No: D o not add to previous draw Performed By: #### 0 0071 #### [facility] [address] [place] [address], [facility] Chloride [Moles/Vol] 104 mmol/L Normal 98-107 [facility] Comment on above: Order Comment: No: D o not add to previous draw Performed By: #### 0 0071 #### [facility] [address] [place] [address], [facility] CO2 [Moles/Vol] 29 mmol/L Normal 21-31 [facility] Comment on above: Order Comment: No: D o not add to previous draw Performed By: #### 0 0071 #### [facility] [address] [place] [address], [facility] Creatinine [Mass/Vol] 0.81 mg/dL Normal 0.70-1.30 [facility] Comment on above: Order Comment: No: D o not add to previous draw Performed By: #### 0 0071 #### [facility] [address] [place] [address], [facility] GFR/1.73 sq M.predicted among blacks MDRD (S/P/Bld) [Vol rate/Area] mL/min/{1.73_m2} Normal >60 [facility] Comment on above: Order Comment: No: D o not add to previous draw Performed By: #### 0 0071 #### [facility] [address] [place] [address], [place] GFR/1.73 sq M.predicted among non-blacks MDRD (S/P/Bld) [Vol rate/Area] mL/min/{1.73_m2} Normal >60 [facility] Comment on above: Order Comment: No: D o not add to previous draw Performed By: #### 0 0071 #### [facility] [address] [place] [address], [place] Glucose [Mass/Vol] 144 mg/dL High 70-100 [facility] Comment on above: Order Comment: No: D o not add to previous draw Performed By: #### 0 0071 #### [facility] [address] [place] [address], [place] Potassium [Moles/Vol] 3.6 mmol/L Normal 3.5-5.1 The [facility] Comment on above: Order Comment: No: D o not add to previous draw Performed By: #### 0 0071 #### [facility] [address] [place] [address], [place] Sodium [Moles/Vol] 139 mmol/L Normal 136-145 The [facility] Comment on above: Order Comment: No: D o not add to previous draw Performed By: #### 0 0071 #### [facility] [address] [place] [address], [place] Urea nitrogen [Mass/Vol] 9 mg/dL Normal 7-25 [facility] Comment on above: Order Comment: No: D o not add to previous draw Performed By: #### 0 0071 #### [facility] [address] [place] [address], [place] CBC COMPLETE BLOOD COUNTon 0 07-26-2020 Erythrocyte distribution width (RBC) [Ratio] 14.6 % Normal 11.5-15.0 The [facility] Comment on above: Order Comment: No: D o not add to previous draw Performed By: #### 0 0071 #### [facility] [address] [place] [address], [facility] Hematocrit (Bld) [Volume fraction] 38.8 % Low 39.0-50.0 The [facility] Comment on above: Order Comment: No: D o not add to previous draw Performed By: #### 0 0071 #### [facility] [address] [place] [id number], [facility] Hemoglobin (Bld) [Mass/Vol] 12.1 g/dL Low 13.0-17.0 The [facility] Comment on above: Order Comment: No: D o not add to previous draw Performed By: #### 0 0071 #### [facility] [address] [facility] [place] [address], [facility] MCH (RBC) [Entitic mass] 23.7 pg Low 27.0-33.0 The [facility] Comment on above: Order Comment: No: D o not add to previous draw Performed By: #### 0 0071 #### [facility] [address] [place] [address], [facility] MCHC (RBC) [Mass/Vol] 31.2 g/dL Low 32.0-35.0 [facility] Comment on above: Order Comment: No: D o not add to previous draw Performed By: #### 0 0071 #### [facility] [address] [facility] [place] [id number], [facility] MCV (RBC) [Entitic vol] 75.9 fL Low 82.0-98.0 The [facility] Comment on above: Order Comment: No: D o not add to previous draw Performed By: #### 0 0071 #### [facility] [address] [place] [address], [facility] Nucleated RBC/100 WBC (Bld) [Ratio] 0 % Normal 0-0 The [facility] Comment on above: Order Comment: No: D o not add to previous draw Performed By: #### 0 0071 #### [facility] [address] [place] [address], [facility] PLAT CNT 182 10*3/uL Normal 150-400 The [facility] Comment on above: Order Comment: No: D o not add to previous draw Performed By: #### 0 0071 #### [facility] [address] [place] [address], [facility] RBC (Bld) [#/Vol] 5.11 10*6/uL Normal 4.20-5.70 The [facility] Comment on above: Order Comment: No: D o not add to previous draw Performed By: #### 0 0071 #### [facility] [address] [place] [address], [facility] WBC (Bld) [#/Vol] 3.64 10*3/uL Low 4.00-10.60 The [facility] Comment on above: Order Comment: No: D o not add to previous draw Performed By: #### 0 0071 #### [facility] [address] [place] [address], [facility] MAGNESIUM BLOODon 07-26-2020 Magnesium [Mass/Vol] 1.8 mg/dL Low 1.9-2.7 The [facility] Comment on above: Order Comment: No: D o not add to previous draw Performed By: #### 1 0070, 46801 #### [facility] [address] [place] [address], [facility] BASIC METABOLIC PANELon Calcium [Mass/Vol] 8.4 mg/dL Low 8.6-10.3 The [facility] Comment on above: Order Comment: No: D o not add to previous draw Performed By: #### 1 0070, 50076 #### [facility] [address] [place] [address], [place] Chloride [Moles/Vol] 104 mmol/L Normal 98-107 The [facility] Comment on above: Order Comment: No: D o not add to previous draw Performed By: #### 1 69, 24697 #### [facility] [address] [place] [address], [place] CO2 [Moles/Vol] 27 mmol/L Normal 21-31 The [facility] Comment on above: Order Comment: No: D o not add to previous draw Performed By: #### 1 69, 78441 #### [facility] [address] [place] [address], [place] Creatinine [Mass/Vol] 0.83 mg/dL Normal 0.70-1.30 The [facility] Comment on above: Order Comment: No: D o not add to previous draw Performed By: #### 1 69, 56093 #### [facility] [address] [place] [address], [place] GFR/1.73 sq M.predicted among blacks MDRD (S/P/Bld) [Vol rate/Area] mL/min/{1.73_m2} Normal >60 [facility] Comment on above: Order Comment: No: D o not add to previous draw Performed By: #### 1 69, 13031 #### [facility] [address] [place] [address], [place] GFR/1.73 sq M.predicted among non-blacks MDRD (S/P/Bld) [Vol rate/Area] mL/min/{1.73_m2} Normal >60 The [facility] Comment on above: Order Comment: No: D o not add to previous draw Performed By: #### 1 69, 35529 #### [facility] [address] [place] [address], [place] Glucose [Mass/Vol] 162 mg/dL High 70-100 [facility] Comment on above: Order Comment: No: D o not add to previous draw Performed By: #### 1 69, 96790 #### [facility] [address] [place] [address], [place] Potassium [Moles/Vol] 3.4 mmol/L Low 3.5-5.1 The [facility] Comment on above: Order Comment: No: D o not add to previous draw Performed By: #### 1 69, 51374 #### [facility] [address] [place] [address], [place] Sodium [Moles/Vol] 137 mmol/L Normal 136-145 The [facility] Comment on above: Order Comment: No: D o not add to previous draw Performed By: #### 1 69, 10598 #### [facility] [address] [place] [address], [place] Urea nitrogen [Mass/Vol] 18 mg/dL Normal 7-25 The [facility] Comment on above: Order Comment: No: D o not add to previous draw Performed By: #### 1 69, 79552 #### [facility] [address] [place] [address], [facility] CBC COMPLETE BLOOD COUNTon 0 - Erythrocyte distribution width (RBC) [Ratio] 15.2 % High 11.5-15.0 The [facility] Comment on above: Order Comment: No: D o not add to previous draw Performed By: #### 0 0071 #### [facility] [address] [place] [address], [place] Hematocrit (Bld) [Volume fraction] 40.7 % Normal 39.0-50.0 The [facility] Comment on above: Order Comment: No: D o not add to previous draw Performed By: #### 0 0071 #### [facility] [address] [place] [address], [place] Hemoglobin (Bld) [Mass/Vol] 12.7 g/dL Low 13.0-17.0 The [facility] Comment on above: Order Comment: No: D o not add to previous draw Performed By: #### 0 0071 #### [facility] [address] [place] [address], [facility] MCH (RBC) [Entitic mass] 23.3 pg Low 27.0-33.0 The [facility] Comment on above: Order Comment: No: D o not add to previous draw Performed By: #### 0 0071 #### [facility] [address] [facility] [place] [address], [facility] MCHC (RBC) [Mass/Vol] 31.2 g/dL Low 32.0-35.0 The [facility] Comment on above: Order Comment: No: D o not add to previous draw Performed By: #### 0 0071 #### [facility] [address] [facility] [place] [address], [facility] MCV (RBC) [Entitic vol] 74.8 fL Low 82.0-98.0 The [facility] Comment on above: Order Comment: No: D o not add to previous draw Performed By: #### 0 0071 #### [facility] [address] Nucleated RBC/100 WBC (Bld) [Ratio] 0 % Normal 0-0 The [facility] Comment on above: Order Comment: No: D o not add to previous draw Performed By: #### 0 0071 #### [facility] [address] [place] [address], [facility] PLAT CNT 207 10*3/uL Normal 150-400 The [facility] Comment on above: Order Comment: No: D o not add to previous draw Performed By: #### 0 0071 #### [facility] [address] [place] [address], [facility] RBC (Bld) [#/Vol] 5.44 10*6/uL Normal 4.20-5.70 The [facility] Comment on above: Order Comment: No: D o not add to previous draw Performed By: #### 0 0071 #### [facility] [address] [facility] WBC (Bld) [#/Vol] 3.05 10*3/uL Low 4.00-10.60 The [facility] Comment on above: Order Comment: No: D o not add to previous draw Performed By: #### 0 0071 #### [facility] [address] [facility] [address] MAGNESIUM BLOODon 07-25-2020 Magnesium [Mass/Vol] 1.8 mg/dL Low 1.9-2.7 The [facility] Comment on above: Order Comment: No: D o not add to previous draw Performed By: #### 1 0070, 82711 #### [facility] [address] POC GLUCOSE LABon 07-25-2020 Glucose [Mass/Vol] 155 mg/dL High 70-100 The [facility] Comment on above: Performed By: #### 0 0071, 98809 #### [facility] [address] *SARS-CoV-2 COVID-19on 07-24 SARS-CoV-2 (COVID-19) RNA LILLIANA+probe Ql (Unsp spec) Not detected Normal Not Detected The [facility] Comment on above: Order Comment: No: D o not add to previous draw Performed By: #### 0 0071, 49027 #### [facility] [address] CBC W/DIFFon 07-24-2020 ABS IMM GRANS 0.0 10*3/uL Normal 0.0-0.2 The [facility] Comment on above: Performed By: #### 0 0071 #### [facility] [address] ABS NEUTROPHILS 2.0 10*3/uL Normal 1.6-7.6 The [facility] Comment on above: Performed By: #### 0 0071 #### [facility] [address] [place] [address], [facility] Basophils (Bld) [#/Vol] 0.0 10*3/uL Normal 0.0-0.2 The [facility] Comment on above: Performed By: #### 0 0071 #### [facility] [address] [place] [address], [facility] Basophils/100 WBC (Bld) 0.4 % Normal 0.0-1.0 The [facility] Comment on above: Performed By: #### 0 0071 #### [facility] [address] [facility] [place] [address], [facility] Eosinophils (Bld) [#/Vol] 0.0 10*3/uL Normal 0.0-0.5 The [facility] Comment on above: Performed By: #### 0 0071 #### [facility] [address] [facility] [place] [address], [facility] Eosinophils/100 WBC (Bld) 0.7 % Normal 0.0-6.0 The [facility] Comment on above: Performed By: #### 0 0071 #### [facility] [address] [facility] Erythrocyte distribution width (RBC) [Ratio] 15.8 % High 11.5-15.0 [facility] Comment on above: Performed By: #### 0 0071 #### [facility] [address] [facility] [place] [address], [facility] Hematocrit (Bld) [Volume fraction] 45.5 % Normal 39.0-50.0 [facility] Comment on above: Performed By: #### 0 0071 #### [facility] [address] [place] [address], [facility] Hemoglobin (Bld) [Mass/Vol] 14.4 g/dL Normal 13.0-17.0 The [facility] Comment on above: Performed By: #### 0 0071 #### [facility] [address] [place] [address], [facility] IMMATURE GRANS 0.4 % Normal 0.0-1.0 [facility] Comment on above: Performed By: #### 0 0071 #### [facility] [address] [place] [address], [facility] Lymphocytes (Bld) [#/Vol] 0.4 10*3/uL Low 1.2-4.0 The [facility] Comment on above: Performed By: #### 0 0071 #### [facility] [address] [place] [address], [facility] Lymphocytes/100 WBC (Bld) 14.5 % Low 20.0-45.0 The [facility] Comment on above: Performed By: #### 0 0071 #### [facility] [address] [place] [address], [facility] MCH (RBC) [Entitic mass] 23.7 pg Low 27.0-33.0 The [facility] Comment on above: Performed By: #### 0 0071 #### [facility] [address] [place] [address], [facility] MCHC (RBC) [Mass/Vol] 31.6 g/dL Low 32.0-35.0 The [facility] Comment on above: Performed By: #### 0 0071 #### [facility] [address] [place] [address], [facility] MCV (RBC) [Entitic vol] 75.0 fL Low 82.0-98.0 The [facility] Comment on above: Performed By: #### 0 0071 #### [facility] [address] [place] [address], [facility] Monocytes (Bld) [#/Vol] 0.3 10*3/uL Normal 0.1-1.0 The [facility] Comment on above: Performed By: #### 0 0071 #### [facility] [address] [facility] [place] [address], [facility] MONOS 12.3 % High 5.0-12.0 The [facility] Comment on above: Performed By: #### 0 0071 #### [facility] [address] [place] [address], [facility] Neutrophils/100 WBC (Bld) 71.7 % Normal 40.0-72.0 The [facility] Comment on above: Performed By: #### 0 0071 #### [facility] [address] [place] [address], [facility] Nucleated RBC/100 WBC (Bld) [Ratio] 0 % Normal 0-0 The [facility] Comment on above: Performed By: #### 0 0071 #### [facility] [address] [place] [address], [facility] PLAT CNT 225 10*3/uL Normal 150-400 The [facility] Comment on above: Performed By: #### 0 0071 #### [facility] [address] [place] [address], [facility] RBC (Bld) [#/Vol] 6.07 10*6/uL High 4.20-5.70 The [facility] Comment on above: Performed By: #### 0 0071 #### [facility] [address] [place] [address], [facility] WBC (Bld) [#/Vol] 2.76 10*3/uL Low 4.00-10.60 The [facility] Comment on above: Performed By: #### 0 0071 #### [facility] [address] [place] [address], [facility] COMP METABOLIC PANELon 07-24 Albumin [Mass/Vol] 3.7 g/dL Normal 3.5-5.7 The [facility] Comment on above: Performed By: #### 3 5200, 83926, 82458 #### [facility] [address] [place] [address], [place] ALKALINE PHOSPH 58 IU/L Normal 34-104 The [facility] Comment on above: Performed By: #### 3 5200, 33796, 41998 #### [facility] [address] [place] [address], [place] ALT [Catalytic activity/Vol] 12 U/L Normal 7-52 The [facility] Comment on above: Performed By: #### 3 5200, 58470, 39733 #### [facility] [address] [place] [address], [place] AST [Catalytic activity/Vol] 15 U/L Normal 13-39 [facility] Comment on above: Performed By: #### 3 5200, 28361, 56551 #### [facility] [address] [place] [address], [place] Bilirubin [Mass/Vol] 1.3 mg/dL High 0.3-1.0 The [facility] Comment on above: Performed By: #### 3 5200, 58069, 46916 #### [facility] [address] [place] [address], [place] Calcium [Mass/Vol] 8.7 mg/dL Normal 8.6-10.3 The [facility] Comment on above: Performed By: #### 3 5200, 44846, 75008 #### [facility] [address] [place] [address], [place] Chloride [Moles/Vol] 99 mmol/L Normal 98-107 The [facility] Comment on above: Performed By: #### 3 5200, 68534, 20695 #### [facility] [address] [place] [address], [place] CO2 [Moles/Vol] 25 mmol/L Normal 21-31 [facility] Comment on above: Performed By: #### 3 5200, 61974, 89270 #### [facility] [address] [place] [address], [place] Creatinine [Mass/Vol] 1.01 mg/dL Normal 0.70-1.30 The [facility] Comment on above: Performed By: #### 3 5200, 44372, 07637 #### [facility] [address] [place] [address], [place] GFR/1.73 sq M.predicted among blacks MDRD (S/P/Bld) [Vol rate/Area] mL/min/{1.73_m2} Normal >60 The [facility] Comment on above: Performed By: #### 3 5200, 47988, 28451 #### [facility] [address] [place] [address], [place] GFR/1.73 sq M.predicted among non-blacks MDRD (S/P/Bld) [Vol rate/Area] mL/min/{1.73_m2} Normal >60 The [facility] Comment on above: Performed By: #### 3 5200, 15046, 19115 #### [facility] [address] [place] [address], [place] Glucose [Mass/Vol] 142 mg/dL High 70-100 [facility] Comment on above: Performed By: #### 3 5200, 82395, 73512 #### [facility] [address] [place] [address], [place] Potassium [Moles/Vol] 3.9 mmol/L Normal 3.5-5.1 The [facility] Comment on above: Performed By: #### 3 5200, 22615, 08510 #### [facility] [address] [place] [address], [place] Protein [Mass/Vol] 6.6 g/dL Normal 6.0-8.3 The [facility] Comment on above: Performed By: #### 3 5200, 60606, 13220 #### [facility] [address] [facility] [place] [address], [facility] Sodium [Moles/Vol] 134 mmol/L Low 136-145 The [facility] Comment on above: Performed By: #### 3 5200, 72187, 16197 #### [facility] [address] [place] [address], [facility] Urea nitrogen [Mass/Vol] 20 mg/dL Normal 7-25 The [facility] Comment on above: Performed By: #### 3 5200, 21180, 82416 #### [facility] [address] [facility] [place] [address], [facility] CT ABDOMEN AND PELVIS W IV C ONTRASTon 07-24-2020 CT ABDOMEN AND PELVIS W IV CONTRAST [facility] Department of Radiology [address] [place] [id number] Patient Name: NOÉ JEFFERY : 1965 Sex: M Age: Race: Other Pt. Location: [facility] Patient Status: E Ordered Date: [...] achievable. Electronically signed: Miguelito Balderas. Transcribed by: [email or web address], User Resident: Electronically Signed by: MIGUELITO BALDERAS @ 07/24/2020 04:14 PM Normal The [facility] Comment on above: Order Comment: No: D o not add to previous draw LACTATE BLOODon 07-24-2020 Lactate [Moles/Vol] 1.0 mmol/L Normal 0.5-2.2 The [facility] Comment on above: Performed By: #### 1 0054 #### [address] LIPASE BLOODon 07-24-2020 LIPASE 7 Units/L Low 11-82 [facility] Comment on above: Performed By: #### 3 5200, 25644, 43744 #### [address] PORTABLE CHEST 1 VIEWon PORTABLE CHEST 1 VIEW [facility] Department of Radiology [address] [place] [id number] Patient Name: NOÉ JEFFERY : 1965 Sex: M Age: Race: Other Pt. Location: [facility] Patient Status: E Ordered Date: [...] indicated. Electronically signed: Miguelito Balderas. Transcribed by: [email or web address], User Resident: Electronically Signed by: MIGUELITO BALDERAS @ 07/24/2020 03:58 PM Normal The [facility] Comment on above: Order Comment: No: D o not add to previous draw TROPONIN-Ion 07-24-2020 Troponin I.cardiac [Mass/Vol] 0.00 ng/mL Normal 0.00-0.04 [facility] Comment on above: Result Comment: REFE RENCE RANGES: 0.00 - 0.14 ng/ml NEGATIVE 0.15 - 0.25 ng/ml INDETERMINATE > 0.25 ng/ml INDICATIVE OF AN M.I. Performed By: #### 3 5200, 87453, 85952 #### [facility] [address] [place] [address], [place] URINALYSIS REFLEXon 07-24-19 Appearance (U) CLEAR Normal CLEAR [facility] Comment on above: Order Comment: No: D o not add to previous draw Performed By: #### 0 0071, 25464 #### [facility] [address] [place] [address], [place] Bilirubin Ql (U) Negative Normal NEGATIVE [facility] Comment on above: Order Comment: No: D o not add to previous draw Performed By: #### 0 0071, 82219 #### [facility] [address] [place] [address], [facility] Color (U) ANEL Abnormal YELLOW The [facility] Comment on above: Order Comment: No: D o not add to previous draw Performed By: #### 0 0071, 30011 #### [facility] [address] [place] [address], [facility] Glucose Ql (U) Negative Normal NEGATIVE [facility] Comment on above: Order Comment: No: D o not add to previous draw Performed By: #### 0 0071, 58361 #### [facility] [address] [place] [address], [facility] Hemoglobin Ql (U) Negative Normal NEGATIVE The [facility] Comment on above: Order Comment: No: D o not add to previous draw Performed By: #### 0 0071, 13723 #### [facility] [address] [place] [address], [facility] KETONE 20 mg/dL Abnormal NEGATIVE The [facility] Comment on above: Order Comment: No: D o not add to previous draw Performed By: #### 0 0071, 95941 #### [facility] [address] [place] [address], [facility] LEUK DINO Negative Normal NEGATIVE The [facility] Comment on above: Order Comment: No: D o not add to previous draw Performed By: #### 0 0071, 44483 #### [facility] [address] [place] [address], [facility] MICRO NOT DONE Normal [facility] Comment on above: Order Comment: No: D o not add to previous draw Result Comment: Micr oscopics not performed on urines with negative chemical reactions unless requested in original order Performed By: #### 0 0071, 42065 #### [facility] [address] [place] [address], [facility] Nitrite Ql (U) Negative Normal NEGATIVE [facility] Comment on above: Order Comment: No: D o not add to previous draw Performed By: #### 0 0071, 88888 #### [facility] [address] [place] [address], [facility] pH (U) 5.0 [pH] Normal 5.0-8.0 [facility] Comment on above: Order Comment: No: D o not add to previous draw Performed By: #### 0 0071, [id number] #### [facility] [address] [facility] [place] [address], [facility] Protein Ql (U) Negative Normal NEGATIVE [facility] Comment on above: Order Comment: No: D o not add to previous draw Performed By: #### 0 0071, [id number] #### [facility] [address] SPEC GRAV 1.084 High 1.015-1.020 The [facility] Comment on above: Order Comment: No: D o not add to previous draw Result Comment: DONE BY DILUTION Performed By: #### 0 0071, [id number] #### [facility] [address] BASIC METABOLIC PANELon 02-0 Calcium [Mass/Vol] 8.8 mg/dL Normal 8.6-10.3 [facility] Comment on above: Order Comment: No: D o not add to previous draw Performed By: #### 0 0071, 51284 #### [facility] [address] [place] [address], [facility] Chloride [Moles/Vol] 103 mmol/L Normal 98-107 The [facility] Comment on above: Order Comment: No: D o not add to previous draw Performed By: #### 0 0071, 52459 #### [facility] [address] [place] [address], [place] CO2 [Moles/Vol] 27 mmol/L Normal 21-31 The [facility] Comment on above: Order Comment: No: D o not add to previous draw Performed By: #### 0 0071, 31037 #### [facility] [address] [place] [address], [place] Creatinine [Mass/Vol] 0.87 mg/dL Normal 0.70-1.30 The [facility] Comment on above: Order Comment: No: D o not add to previous draw Performed By: #### 0 0071, 50646 #### [facility] [address] [place] [address], [place] GFR/1.73 sq M.predicted among blacks MDRD (S/P/Bld) [Vol rate/Area] mL/min/{1.73_m2} Normal >60 The [facility] Comment on above: Order Comment: No: D o not add to previous draw Performed By: #### 0 0071, 86591 #### [facility] [address] [place] [address], [place] GFR/1.73 sq M.predicted among non-blacks MDRD (S/P/Bld) [Vol rate/Area] mL/min/{1.73_m2} Normal >60 The [facility] Comment on above: Order Comment: No: D o not add to previous draw Performed By: #### 0 0071, 24266 #### [facility] [address] [place] [address], [place] Glucose [Mass/Vol] 156 mg/dL High 70-100 [facility] Comment on above: Order Comment: No: D o not add to previous draw Performed By: #### 0 0071, 37717 #### [facility] [address] [place] [address], [place] Potassium [Moles/Vol] 3.9 mmol/L Normal 3.5-5.1 The [facility] Comment on above: Order Comment: No: D o not add to previous draw Performed By: #### 0 0071, 61585 #### [facility] [address] [place] [address], [facility] Sodium [Moles/Vol] 136 mmol/L Normal 136-145 [facility] Comment on above: Order Comment: No: D o not add to previous draw Performed By: #### 0 0071, 45450 #### [facility] [address] [place] [address], [facility] Urea nitrogen [Mass/Vol] 8 mg/dL Normal 7-25 The [facility] Comment on above: Order Comment: No: D o not add to previous draw Performed By: #### 0 0071, 20945 #### [facility] [address] [place] [address], [facility] CBC COMPLETE BLOOD COUNTon 0 - Erythrocyte distribution width (RBC) [Ratio] 15.1 % High 11.5-15.0 [facility] Comment on above: Order Comment: No: D o not add to previous draw Performed By: #### 0 0071 #### [facility] [address] [place] [address], [facility] Hematocrit (Bld) [Volume fraction] 44.1 % Normal 39.0-50.0 The [facility] Comment on above: Order Comment: No: D o not add to previous draw Performed By: #### 0 0071 #### [facility] [address] [place] [address], [facility] Hemoglobin (Bld) [Mass/Vol] 13.4 g/dL Normal 13.0-17.0 The [facility] Comment on above: Order Comment: No: D o not add to previous draw Performed By: #### 0 0071 #### [facility] [address] [place] [address], [facility] MCH (RBC) [Entitic mass] 23.1 pg Low 27.0-33.[address] [facility] Comment on above: Order Comment: No: D o not add to previous draw Performed By: #### 0 0071 #### [facility] [address] [place] [address], [facility] MCHC (RBC) [Mass/Vol] 30.4 g/dL Low 32.0-35.0 The [facility] Comment on above: Order Comment: No: D o not add to previous draw Performed By: #### 0 0071 #### [facility] [address] [place] [address], [facility] MCV (RBC) [Entitic vol] 76.0 fL Low 82.0-98.0 The [facility] Comment on above: Order Comment: No: D o not add to previous draw Performed By: #### 0 0071 #### [facility] [address] [facility] [place] [address], [facility] Nucleated RBC/100 WBC (Bld) [Ratio] 0 % Normal 0-0 The [facility] Comment on above: Order Comment: No: D o not add to previous draw Performed By: #### 0 0071 #### [facility] [address] [facility] [place] [address], [facility] PLAT CNT 190 10*3/uL Normal 150-400 The [facility] Comment on above: Order Comment: No: D o not add to previous draw Performed By: #### 0 0071 #### [facility] [address] [facility] [address], [facility] RBC (Bld) [#/Vol] 5.80 10*6/uL High 4.20-5.70 The [facility] Comment on above: Order Comment: No: D o not add to previous draw Performed By: #### 0 0071 #### [facility] [address] [place] [address], [facility] WBC (Bld) [#/Vol] 7.98 10*3/uL Normal 4.00-10.60 The [facility] Comment on above: Order Comment: No: D o not add to previous draw Performed By: #### 0 0071 #### [facility] [address] [place] [address], [place] MAGNESIUM BLOODon 07-23-2020 Magnesium [Mass/Vol] 1.9 mg/dL Normal 1.9-2.7 The [facility] Comment on above: Order Comment: No: D o not add to previous draw Performed By: #### 0 0071, 72323 #### [facility] [address] [place] [address], [place] POC GLUCOSE LABon 07-23-2020 Glucose [Mass/Vol] 140 mg/dL High 70-100 The [facility] Comment on above: Performed By: #### 0 0071 #### [facility] [address] [place] [address], [place] Glucose [Mass/Vol] 155 mg/dL High 70-100 The [facility] Comment on above: Performed By: #### 0 0071, 11776 #### [facility] [address] [place] [address], [place] Glucose [Mass/Vol] 164 mg/dL High 70-100 The [facility] Comment on above: Performed By: #### 0 0071 #### [facility] [address] [place] [address], [place] BASIC METABOLIC PANELon Calcium [Mass/Vol] 8.3 mg/dL Low 8.6-10.3 [facility] Comment on above: Order Comment: No: D o not add to previous draw Performed By: #### 0 0071, 91894 #### [facility] [address] [place] [address], [place] Chloride [Moles/Vol] 103 mmol/L Normal 98-107 The [facility] Comment on above: Order Comment: No: D o not add to previous draw Performed By: #### 0 0071, 68072 #### [facility] [address] [place] [address], [place] CO2 [Moles/Vol] 26 mmol/L Normal 21-31 [facility] Comment on above: Order Comment: No: D o not add to previous draw Performed By: #### 0 0071, 65282 #### [facility] [address] [place] [address], [place] Creatinine [Mass/Vol] 0.90 mg/dL Normal 0.70-1.30 The [facility] Comment on above: Order Comment: No: D o not add to previous draw Performed By: #### 0 0071, 69005 #### [facility] [address] [place] [address], [facility] GFR/1.73 sq M.predicted among blacks MDRD (S/P/Bld) [Vol rate/Area] mL/min/{1.73_m2} Normal >60 [facility] Comment on above: Order Comment: No: D o not add to previous draw Performed By: #### 0 0071, 16981 #### [facility] [address] [place] [address], [facility] GFR/1.73 sq M.predicted among non-blacks MDRD (S/P/Bld) [Vol rate/Area] mL/min/{1.73_m2} Normal >60 [facility] Comment on above: Order Comment: No: D o not add to previous draw Performed By: #### 0 0071, 27386 #### [facility] [address] [place] [address], [place] Glucose [Mass/Vol] 166 mg/dL High 70-100 [facility] Comment on above: Order Comment: No: D o not add to previous draw Performed By: #### 0 0071, 43859 #### [facility] [address] [place] [address], [place] Potassium [Moles/Vol] 4.1 mmol/L Normal 3.5-5.1 The [facility] Comment on above: Order Comment: No: D o not add to previous draw Performed By: #### 0 0071, 49095 #### [facility] [address] [place] [id number], [facility] Sodium [Moles/Vol] 136 mmol/L Normal 136-145 The [facility] Comment on above: Order Comment: No: D o not add to previous draw Performed By: #### 0 0071, 69044 #### [facility] [address] [place] [id number], [facility] Urea nitrogen [Mass/Vol] 12 mg/dL Normal 7-25 The [facility] Comment on above: Order Comment: No: D o not add to previous draw Performed By: #### 0 0071, 22997 #### [facility] [address] [place] [address], [facility] CBC COMPLETE BLOOD COUNTon 0 - Erythrocyte distribution width (RBC) [Ratio] 14.9 % Normal 11.5-15.0 [facility] Comment on above: Order Comment: No: D o not add to previous draw Performed By: #### 0 0071, 68242 #### [facility] [address] [place] [id number], [facility] Hematocrit (Bld) [Volume fraction] 42.8 % Normal 39.0-50.0 The [facility] Comment on above: Order Comment: No: D o not add to previous draw Performed By: #### 0 0071, 02184 #### [facility] [address] [place] [id number], [facility] Hemoglobin (Bld) [Mass/Vol] 13.3 g/dL Normal 13.0-17.0 The [facility] Comment on above: Order Comment: No: D o not add to previous draw Performed By: #### 0 0071, 60352 #### [facility] [address] MCH (RBC) [Entitic mass] 23.4 pg Low 27.0-33.0 The [facility] Comment on above: Order Comment: No: D o not add to previous draw Performed By: #### 0 0071, 47619 #### [facility] [address] [place] [address], [facility] MCHC (RBC) [Mass/Vol] 31.1 g/dL Low 32.0-35.0 The [facility] Comment on above: Order Comment: No: D o not add to previous draw Performed By: #### 0 0071, 13488 #### [facility] [address] [place] [address], [facility] MCV (RBC) [Entitic vol] 75.2 fL Low 82.0-98.0 The [facility] Comment on above: Order Comment: No: D o not add to previous draw Performed By: #### 0 0071, 03681 #### [facility] [address] Nucleated RBC/100 WBC (Bld) [Ratio] 0 % Normal 0-0 The [facility] Comment on above: Order Comment: No: D o not add to previous draw Performed By: #### 0 0071, 49771 #### [facility] [address] [place] [address], [facility] PLAT CNT 211 10*3/uL Normal 150-400 The [facility] Comment on above: Order Comment: No: D o not add to previous draw Performed By: #### 0 0071, 65403 #### [facility] [address] [place] [address], [facility] RBC (Bld) [#/Vol] 5.69 10*6/uL Normal 4.20-5.70 The [facility] Comment on above: Order Comment: No: D o not add to previous draw Performed By: #### 0 0071, 71140 #### [facility] [address] [place] [address], [facility] WBC (Bld) [#/Vol] 8.55 10*3/uL Normal 4.00-10.60 The [facility] Comment on above: Order Comment: No: D o not add to previous draw Performed By: #### 0 0071, 42150 #### [facility] [address] MAGNESIUM BLOODon 07-22-2020 Magnesium [Mass/Vol] 2.0 mg/dL Normal 1.9-2.7 The [facility] Comment on above: Order Comment: No: D o not add to previous draw Performed By: #### 0 0071, 15401 #### [facility] [address] [facility] Operative Reporton Operative Report MR#: [id number] [facility] Pt. Name: Noé Jeffery Room #: [id number] Discharge Date: Birthdate: 1965 OPERATIVE REPORT DATE [...] Izaguirre M.D. Date Trans: 07/21/2020 10:04 P/patricia [id number] cc: Jae Lopez M.D. [address] [id number] Normal The [facility] POC GLUCOSE LABon 07-22-2020 Glucose [Mass/Vol] 142 mg/dL High 70-100 [facility] Comment on above: Performed By: #### 0 0071, 25605 #### [facility] [address] [place] [address], [place] Glucose [Mass/Vol] 113 mg/dL High 70-100 [facility] Comment on above: Performed By: #### 0 0071, 13730 #### [facility] [address] [place] [address], [place] Glucose [Mass/Vol] 153 mg/dL High 70-100 [facility] Comment on above: Performed By: #### 0 0071, 42203 #### [facility] [address] [place] [address], [place] Glucose [Mass/Vol] 127 mg/dL High 70-100 The [facility] Comment on above: Performed By: #### 0 0071, 37815 #### [facility] [address] [place] [address], [place] Glucose [Mass/Vol] 176 mg/dL High 70-100 The [facility] Comment on above: Performed By: #### 0 0071 #### [facility] [address] [place] [address], [place] *MRSA/MSSA DNA NASALon 07-21 *MRSA/MSSA DNA NASAL Clinical Report: (D ) Specimen: NASAL SWAB Collected: 07/21/2020 00:00 Status: Final Last Updated: 07/21/2020 15:28 (1) No collection time noted on specimen or requisition. The collection time recorded is the time of receipt in the lab. MSSA DNA (Final) Methicillin Susceptible Staphylococcus aureus DNA Detected MRSA DNA (Final) Negative Normal The [facility] Comment on above: Order Comment: No: D o not add to previous draw Performed By: #### 0 0071, 92458 #### [facility] [address] [facility] [place] [address], [facility] POC GLUCOSE LABon 07-21-2020 Glucose [Mass/Vol] 168 mg/dL High 70-100 [facility] Comment on above: Performed By: #### 0 0071 #### [facility] [address] [place] [address], [facility] Glucose [Mass/Vol] 211 mg/dL High 70-100 [facility] Comment on above: Performed By: #### 0 0071, 37274 #### [facility] [address] [facility] [place] [address], [facility] Glucose [Mass/Vol] 117 mg/dL High 70-100 [facility] Comment on above: Performed By: #### 0 0071, 47302 #### [facility] [address] [place] [address], [facility] *SARS-CoV-2 COVID-19on 07-18 SARS-CoV-2 (COVID-19) RNA LILLIANA+probe Ql (Unsp spec) Not detected Normal Not Detected The [facility] Comment on above: Order Comment: No: D o not add to previous draw Performed By: #### 0 0071, 59253 #### [facility] [address] [place] [address], [facility] BASIC METABOLIC PANELon 06-21 Calcium [Mass/Vol] 9.2 mg/dL Normal 8.6-10.3 The [facility] Comment on above: Performed By: #### 0 0071 #### [facility] [address] [place] [address], [place] Chloride [Moles/Vol] 100 mmol/L Normal 98-107 The [facility] Comment on above: Performed By: #### 0 0071 #### [facility] [address] [place] [address], [place] CO2 [Moles/Vol] 30 mmol/L Normal 21-31 [facility] Comment on above: Performed By: #### 0 0071 #### [facility] [address] [place] [address], [place] Creatinine [Mass/Vol] 1.01 mg/dL Normal 0.70-1.30 The [facility] Comment on above: Performed By: #### 0 0071 #### [facility] [address] [place] [address], [place] GFR/1.73 sq M.predicted among blacks MDRD (S/P/Bld) [Vol rate/Area] mL/min/{1.73_m2} Normal >60 The [facility] Comment on above: Performed By: #### 0 0071 #### [facility] [address] [place] [address], [place] GFR/1.73 sq M.predicted among non-blacks MDRD (S/P/Bld) [Vol rate/Area] mL/min/{1.73_m2} Normal >60 The [facility] Comment on above: Performed By: #### 0 0071 #### [facility] [address] [place] [address], [place] Glucose [Mass/Vol] 121 mg/dL High 70-100 [facility] Comment on above: Performed By: #### 0 0071 #### [facility] [address] [place] [address], [place] Potassium [Moles/Vol] 4.4 mmol/L Normal 3.5-5.1 The [facility] Comment on above: Performed By: #### 0 0071 #### [facility] [address] [place] [address], [facility] Sodium [Moles/Vol] 135 mmol/L Low 136-145 The [facility] Comment on above: Performed By: #### 0 0071 #### [facility] [address] Urea nitrogen [Mass/Vol] 14 mg/dL Normal 7-25 The [facility] Comment on above: Performed By: #### 0 0071 #### [facility] [address] [place] [address], [facility] CBC W/DIFFon 07-18-2020 ABS IMM GRANS 0.0 10*3/uL Normal 0.0-0.2 [facility] Comment on above: Performed By: #### 0 0071 #### [facility] [address] ABS NEUTROPHILS 2.5 10*3/uL Normal 1.6-7.6 The [facility] Comment on above: Performed By: #### 0 0071 #### [facility] [address] [place] [address], [facility] Basophils (Bld) [#/Vol] 0.0 10*3/uL Normal 0.0-0.2 The [facility] Comment on above: Performed By: #### 0 0071 #### [facility] [address] [place] [address], [facility] Basophils/100 WBC (Bld) 0.9 % Normal 0.0-1.0 The [facility] Comment on above: Performed By: #### 0 0071 #### [facility] [address] [place] [address], [facility] Eosinophils (Bld) [#/Vol] 0.1 10*3/uL Normal 0.0-0.5 The [facility] Comment on above: Performed By: #### 0 0071 #### [facility] [address] [place] [address], [facility] Eosinophils/100 WBC (Bld) 1.2 % Normal 0.0-6.0 The [facility] Comment on above: Performed By: #### 0 0071 #### [facility] [address] [facility] [place] [address], [facility] Erythrocyte distribution width (RBC) [Ratio] 14.8 % Normal 11.5-15.0 The [facility] Comment on above: Performed By: #### 0 0071 #### [facility] [address] [facility] [place] [address], [facility] Hematocrit (Bld) [Volume fraction] 47.6 % Normal 39.0-50.0 The [facility] Comment on above: Performed By: #### 0 0071 #### [facility] [address] [facility] [place] [address], [facility] Hemoglobin (Bld) [Mass/Vol] 14.5 g/dL Normal 13.0-17.0 The [facility] Comment on above: Performed By: #### 0 0071 #### [facility] [address] [place] [address], [facility] IMMATURE GRANS 0.2 % Normal 0.0-1.0 [facility] Comment on above: Performed By: #### 0 0071 #### [facility] [address] [place] [address], [facility] Lymphocytes (Bld) [#/Vol] 1.4 10*3/uL Normal 1.2-4.0 The [facility] Comment on above: Performed By: #### 0 0071 #### [facility] [address] [place] [address], [facility] Lymphocytes/100 WBC (Bld) 32.9 % Normal 20.0-45.0 The [facility] Comment on above: Performed By: #### 0 0071 #### [facility] [address] [facility] [place] [address], [facility] MCH (RBC) [Entitic mass] 23.2 pg Low 27.0-33.0 The [facility] Comment on above: Performed By: #### 0 0071 #### [facility] [address] [facility] [place] [address], [facility] MCHC (RBC) [Mass/Vol] 30.5 g/dL Low 32.0-35.0 The [facility] Comment on above: Performed By: #### 0 0071 #### [facility] [address] [place] [address], [facility] MCV (RBC) [Entitic vol] 76.0 fL Low 82.0-98.0 The [facility] Comment on above: Performed By: #### 0 0071 #### [facility] [address] [facility] [place] [address], [facility] Monocytes (Bld) [#/Vol] 0.3 10*3/uL Normal 0.1-1.0 The [facility] Comment on above: Performed By: #### 0 0071 #### [facility] [address] [facility] [place] [address], [facility] MONOS 7.5 % Normal 5.0-12.0 The [facility] Comment on above: Performed By: #### 0 0071 #### [facility] [address] [place] [address], [facility] Neutrophils/100 WBC (Bld) 57.3 % Normal 40.0-72.0 The [facility] Comment on above: Performed By: #### 0 0071 #### [facility] [address] [place] [address], [facility] Nucleated RBC/100 WBC (Bld) [Ratio] 0 % Normal 0-0 [facility] Comment on above: Performed By: #### 0 0071 #### [facility] [address] [facility] [place] [address], [facility] PLAT CNT 222 10*3/uL Normal 150-400 The [facility] Comment on above: Performed By: #### 0 0071 #### [facility] [address] [place] [address], [facility] RBC (Bld) [#/Vol] 6.26 10*6/uL High 4.20-5.70 [facility] Comment on above: Performed By: #### 0 0071 #### [facility] [address] [place] [address], [facility] CENTER WBC (Bld) [#/Vol] 4.28 10*3/uL Normal 4.00-10.60 [facility] Comment on above: Performed By: #### [id number] #### [facility] [address] PROTHROMBIN TIMEon 1 INR Coag (PPP) [Relative time] 0.95 {INR} Normal 0.91-1.16 [facility] Comment on above: Result Comment: ACCC [...] CHEST 1995;[id number]. Performed By: #### [id number], [id number] #### [facility] [address] [place] [address], [facility] PT Coag (PPP) [Time] 12.7 s Normal 12.3-14.8 [facility] Comment on above: Result Comment: ALL RESULTS MUST BE INTERPRETED WITH RESPECT TO BLOOD DRAWING ARTIFACT OR DILUTION ERROR OF ANTICOAGULANT AT THE TIME OF SAMPLING. Performed By: #### [id number], [id number] #### [facility] [address] [place], [place] [id number] [place] [address] Vital Signs Date Time Vital Sign Value Performing Clinician Facility 07-30-2024 12:33-0500 Body mass index (BMI) [Ratio] 27.96 kg/m2 Fidelina Dialloower CTO.OPERATIONS AND MAINTENANCE MANAGER Work Phone: [facility] 07-30-2024 12:33-0500 Body temperature 97.59 [degF] Fidelina Dialloower CTO.OPERATIONS AND MAINTENANCE MANAGER Work Phone: [facility] 07-30-2024 12:33-0500 Body weight 76.2 kg Fidelina Spanower CTO.OPERATIONS AND MAINTENANCE MANAGER Work Phone: [facility] 07-30-2024 12:33-0500 Diastolic blood pressure 63 mm[Hg] Fidelina Spanower CTO.OPERATIONS AND MAINTENANCE MANAGER Work Phone: [facility] 07-30-2024 12:33-0500 Heart rate 84 /min Fidelina Dialloower CTO.OPERATIONS AND MAINTENANCE MANAGER Work Phone: [facility] 07-30-2024 12:33-0500 Systolic blood pressure 99 mm[Hg] Fidelina Spanower CTO.OPERATIONS AND MAINTENANCE MANAGER Work Phone: [facility] 07-22-2024 08:01-0500 Diastolic blood pressure 70 mm[Hg] Luiz Shipley MD Work Phone: [facility] 07-22-2024 08:01-0500 Heart rate 92 /min Luiz Shipley MD Work Phone: [facility] 07-22-2024 08:01-0500 SaO2% (BldA) [Mass fraction] 95 % Luiz Shipley MD Work Phone: [facility] 07-22-2024 08:01-0500 Systolic blood pressure 105 mm[Hg] Luiz Shipley MD Work Phone: [facility] 07-22-2024 05:00-0500 Body temperature 97.7 [degF] Luiz Shipley MD Work Phone: [facility] 07-22-2024 05:00-0500 Respiratory rate 15 /min Luiz Shipley MD Work Phone: [facility] 07-12-2024 07:00-0500 Body mass index (BMI) [Ratio] 30.78 kg/m2 Luiz Shipley MD Work Phone: [facility] 07-12-2024 07:00-0500 Body weight 83.9 kg Luiz Shipley MD Work Phone: [facility] 06-21-2024 10:23-0500 Heart rate 69 /min Danni Lue [facility] 06-21-2024 10:23-0500 SaO2% (BldA) [Mass fraction] 98 % Danni Lue [facility] 06-21-2024 10:23-0500 Diastolic blood pressure 88 mm[Hg] Danni Lue [facility] 06-21-2024 10:23-0500 Mean blood pressure 104 mm[Hg] Danni Lue [facility] 06-21-2024 10:23-0500 Systolic blood pressure 135 mm[Hg] Danni Lue [facility] 03-15-2024 14:28-0400 Body height 165.1 cm MD Jae Lopez Work Phone: [facility] 03-15-2024 14:28-0400 Body weight 73.93 kg MD Jae Lopez Work Phone: [facility] 01-11-2024 09:54-0400 Blood Pressure Location Danni Lue [facility] 01-11-2024 09:54-0400 Body temperature 98.6 [degF] Danni Lue [facility] 01-11-2024 09:54-0400 Diastolic blood pressure 72 mm[Hg] Danni Lue [facility] 01-11-2024 09:54-0400 Heart rate 57 /min Danni Lue [facility] 01-11-2024 09:54-0400 Respiratory rate 16 /min Danni Lue [facility] 01-11-2024 09:54-0400 Systolic blood pressure 119 mm[Hg] Danni Lue [facility] 10-12-2022 12:01-0400 Diastolic blood pressure 74 mm[Hg] Miguelito Chicas APRN.OPERATIONS AND MAINTENANCE MANAGER Work Phone: [facility] 10-12-2022 12:01-0400 Heart rate 58 /min Miguelito Chicas APRN.OPERATIONS AND MAINTENANCE MANAGER Work Phone: [facility] 10-12-2022 12:01-0400 Systolic blood pressure 117 mm[Hg] Miguelito Chicas APRN.OPERATIONS AND MAINTENANCE MANAGER Work Phone: [facility] 04-30-2022 10:56-0500 Body weight 86.23 kg Gera Cardona DO Work Phone: [facility] 04-30-2022 10:56-0500 Diastolic blood pressure 91 mm[Hg] Gera Cardona DO Work Phone: [facility] 04-30-2022 10:56-0500 Heart rate 82 /min Gera Cardona DO Work Phone: [facility] 04-30-2022 10:56-0500 SaO2% (BldA) [Mass fraction] 97 % Gera Cardona DO Work Phone: [facility] 04-30-2022 10:56-0500 Systolic blood pressure 139 mm[Hg] Gera Cardona DO Work Phone: [facility] 04-26-2022 03:51-0500 Body height 165.1 cm Roosevelt Merlos MD Work Phone: [facility] 04-26-2022 03:51-0500 Body weight 83.6 kg Roosevelt Merlos MD Work Phone: [facility] 04-22-2022 16:41-0400 Diastolic blood pressure 100 mm[Hg] Brenda Francis CTO.OPERATIONS AND MAINTENANCE MANAGER Work Phone: [facility] 04-22-2022 16:41-0400 Systolic blood pressure 156 mm[Hg] Brenda Francis CTO.OPERATIONS AND MAINTENANCE MANAGER Work Phone: [facility] 04-22-2022 16:17-0400 Body temperature 98.29 [degF] Brenda Francis CTO.OPERATIONS AND MAINTENANCE MANAGER Work Phone: [facility] 04-22-2022 16:17-0400 Body weight 86.27 kg Brenda Francis CTO.OPERATIONS AND MAINTENANCE MANAGER Work Phone: [facility] 04-22-2022 16:17-0400 Heart rate 98 /min Brenda Francis CTO.OPERATIONS AND MAINTENANCE MANAGER Work Phone: [facility] 04-22-2022 16:17-0400 SaO2% (BldA) [Mass fraction] 100 % Brenda Francis CTO.OPERATIONS AND MAINTENANCE MANAGER Work Phone: 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) Start: 07-22-2024 End: 07-22-2024 Evaluation and management of inpatient CHANDLER PALMA [facility] Start: 07-20-2024 End: 07-20-2024 Telephone encounter Briana Mcdermott MD Work Phone: Neurology Start: 07-18-2024 End: 07-20-2024 Telephone encounter Narciso Guerra MD Work Phone: Neurology Comment on above: Patient Question Start: 07-17-2024 End: 07-18-2024 Telephone encounter Narciso Guerra MD Work Phone: Neurology Comment on above: Patient Question Start: 07-12-2024 End: 07-12-2024 Telephone encounter Kelly Vu Yanelis Neurology Comment on above: patient concern Start: 07-11-2024 ambulatory Danni Graham Facility:[facility] Start: 07-10-2024 ambulatory [facility] Start: 07-10-2024 End: 07-10-2024 Evaluation and management of inpatient CECILE ROTH-VILLAREAL [facility] Start: 07-08-2024 End: 07-08-2024 Evaluation and management of inpatient [facility] Start: 07-08-2024 End: 07-22-2024 Evaluation and management of inpatient [facility] Start: 07-06-2024 End: 07-06-2024 Evaluation and management of inpatient KHALIF Clayton CONSTANTINEANNE [facility] Start: 07-06-2024 End: 07-22-2024 Evaluation and management of inpatient Nichol Heath MD Work Phone: [facility] - GEN 8 Acute Comment on above: Dementia with behavi oral disturbance ([facility]) (Primary Dx); Status post colostomy, follow-up exam ([facility]) Start: 07-03-2024 ambulatory [facility] Start: 07-03-2024 End: 07-05-2024 Emergency department patient visit [facility] Start: 06-25-2024 ambulatory Elliott Romeo acility:[facility] Start: 06-24-2024 End: 06-24-2024 Emergency department patient visit [facility]ITE MORR[facility] Start: 06-21-2024 End: 06-21-2024 ambulatory Danni Graham Facility:[facility] Start: 06-21-2024 End: 06-21-2024 Patient encounter procedure Danni Graham [facility] Start: 05-02-2024 End: 06-27-2024 Pre-admission assessment Danni Graham [facility] Start: 03-15-2024 End: 03-15-2024 Patient encounter procedure MD Jae Lopez Work Phone: [facility] [place] Work Phone: Start: 03-15-2024 End: 03-15-2024 ambulatory MD Jae Lopez Work Phone: [facility] Work Phone: Start: 03-09-2024 End: 03-09-2024 Patient Msg Lisandra Gomez APRN.OPERATIONS AND MAINTENANCE MANAGER Work Phone: Neurology Comment on above: refill Start: 03-09-2024 End: 03-09-2024 Refill Lorri Plascencia MD Work Phone: Neurology Comment on above: Refill Request Start: 01-25-2024 End: 01-25-2024 ambulatory Danni Graham Facility:[facility] Start: 01-25-2024 End: 01-25-2024 Off-Site Danni Graham [facility] Derek Start: 01-11-2024 End: 01-11-2024 ambulatory Danni Graham Facility:[facility] Start: 01-11-2024 End: 01-11-2024 Patient encounter procedure Danni Graham [facility] Brock Start: 12-21-2023 ambulatory Danni Graham Facility:[facility] Start: 12-06-2023 Refill Lorri orellana MD Work Phone: Neurology Comment on above: Refill Request donepezil refill Start: 03-07-2023 Patient entered into trial Tabby Naqvi Research Coordinator [facility] Start: 03-07-2023 Telephone encounter Tabby locke Research Coordinator Neurology Comment on above: Research ([facility] (IRB [id number])) Start: 02-08-2023 E-mail encounter fro m caregiver Sonal Weinstein APRN.OPERATIONS AND MAINTENANCE MANAGER Work Phone: [place] Start: 02-08-2023 Follow-up encounter Sonal Beltran CTO.OPERATIONS AND MAINTENANCE MANAGER Work Phone: Neurology Comment on above: sleep follow up Start: 02-08-2023 Patient entered into trial Tabby Naqvi Research Coordinator [facility] Start: 02-08-2023 Telephone encounter Tabby locke Research Coordinator Neurology Comment on above: Research ([facility] (IRB [id number]) Interest) Start: 02-04-2023 Telephone encounter Sonal Beltran CTO.OPERATIONS AND MAINTENANCE MANAGER Work Phone: Neurology Comment on above: PAP Therapy Follow U p (12/18/22 - 01/16/[address] FROM DME ) Start: 02-02-2023 Refill Lorri orellana MD Work Phone: Neurology Comment on above: Refill Request Start: 01-13-2023 Telephone encounter Kary Gaxiola RN Work Phone: Neurology Comment on above: Returning Patient's Call Start: 12-03-2022 Telephone encounter Sonal Beltran CTO.OPERATIONS AND MAINTENANCE MANAGER Work Phone: Neurology Comment on above: PAP Rx Faxed (DME: [facility] ) Start: 12-02-2022 End: 12-02-2022 Telemedicine consultation with patient Sonal Weinstein CTO.OPERATIONS AND MAINTENANCE MANAGER Work Phone: [place] Start: 12-02-2022 End: 12-02-2022 ambulatory Lorri Plascencia MD Work Phone: Neurology Comment on above: Forms from [employer] Obstructive sleep ap carol (Primary Dx); Primary central sleep apnea; Hyperlipidemia, unspecified hyperlipidemia type Start: 12-02-2022 E-mail encounter fro m caregiver Lorri Plascencia MD Work Phone: [facility] Start: 11-17-2022 End: 11-17-2022 ambulatory Lorri Plascencia MD Work Phone: Neurology Comment on above: Alzheimer's disease (HCC) (Primary Dx) Start: 11-17-2022 End: 11-17-2022 Telemedicine consultation with patient Lorri Plascencia MD Work Phone: [facility] Start: 10-21-2022 End: 10-22-[address] AJE LOPEZ . Facility: Start: 10-12-2022 End: 10-12-2022 Patient encounter procedure Miguelito Chicas APRN.OPERATIONS AND MAINTENANCE MANAGER Work Phone: Neurology Comment on above: Memory loss (Primary Dx); Encounter for lumbar puncture Start: 10-12-2022 End: 10-12-2022 Patient encounter status Miguelito Chicas APRN.OPERATIONS AND MAINTENANCE MANAGER Work Phone: Neurology Start: 08-12-2022 Chart abstracting Leah Eidam RN Ne urology Start: 08-11-2022 End: 08-11-2022 ambulatory Lorri Plascencia MD Work Phone: Neurology Comment on above: Memory loss (Primary Dx) Start: 08-11-2022 End: 08-11-2022 Telemedicine consultation with patient Lorri Plascencia MD Work Phone: [facility] Start: 08-10-2022 E-mail encounter fro m caregiver [facility]ARY [facility] Start: 08-10-2022 Patient encounter procedure [facility] Provider Neurology Comment on above: cancel appointment Start: 07-21-2022 End: 07-21-2022 ambulatory Lorri Plascencia MD Work Phone: Neurology Comment on above: Memory loss Start: 07-21-2022 End: 07-21-2022 Telemedicine consultation with patient Lorri Plascencia MD Work Phone: [facility] Start: 05-07-2022 ambulatory NARCISO GUERRA Facility:[facility] Start: 05-07-2022 End: 05-07-2022 Subsequent hospital visit by physician Mri [facility] (Istat/3t) Work Phone: [facility] MRI Comment on above: Cognitive changes [R 41.89] Start: 04-30-2022 End: 04-30-2022 Patient encounter procedure Gera Tom Cardona Work Phone: Neurology Comment on above: SHELBY (obstructive sle ep apnea) (Primary Dx) Start: 04-28-2022 ambulatory Narciso Guerra MD Work Phone: Neurology Comment on above: sleep study results Start: 04-28-2022 E-mail encounter fro m caregiver Narciso Guerra MD Work Phone: [facility] Start: 04-27-2022 ambulatory Narciso Guerra MD Work Phone: Neurology Comment on above: lab results Start: 04-27-2022 E-mail encounter fro m caregiver Narciso Guerra MD Work Phone: [facility] Start: 04-25-2022 Chart abstracting Roosevelt Merlos MD Work Phone: Neurology Start: 04-22-2022 End: 04-22-2022 Office outpatient visit 15 minutes Brenda Blanco APRN.CNP Work Phone: [employer] [facility] Comment on above: Bilateral impacted c erumen (Primary Dx); Elevated blood pressure reading without diagnosis of hypertension; Acute otitis externa of left ear, unspecified type Start: 04-22-2022 End: 04-22-2022 Patient encounter procedure Anika Vizcaino AuD, CCC-A Work Phone: Audiology Comment on above: Bilateral impacted c erumen (Primary Dx) Start: 01-21-2022 End: 01-22-[address] JAE LOPEZ . Facility: Start: 01-12-2022 End: 01-13-[address] JAE LOPEZ . Facility: Start: 07-24-2020 End: 07-26-2020 Evaluation and management of inpatient JAE LOPEZ Facility:[facility] Start: 07-21-2020 End: 07-23-2020 ambulatory NAYA IZAGUIRRE Facility:[facility] Procedures Date Procedure Procedure Detail Performing Clinician Start: 07-17-2024 Basic metabolic pane l calcium total Luiz Shipley MD Work Phone: Start: 07-11-2024 H/O: [...] MD Work Phone: Start: 07-09-2024 Antibody kalia shannon gham virus Arnulfo Haley MD Work Phone: Start: [...] Start: 10-12-2022 TOURTELLOTTE BLOOD Og hew Aviva CTO.OPERATIONS AND MAINTENANCE MANAGER Work Phone: Start: 10-12-2022 Cell count misc body fluids w/differential count Miguelito Chicas CTO.OPERATIONS AND MAINTENANCE MANAGER Work Phone: Start: 10-12-2022 CSF MANUAL DIFF Miguelito Chicas CTO.OPERATIONS AND MAINTENANCE MANAGER Work Phone: Start: 10-12-2022 Glucose body fluid o ther than blood Miguelito Chicas CTO.OPERATIONS AND MAINTENANCE MANAGER Work Phone: Start: 05-07-2022 MRI 3D POST PROCESSING Narciso Guerra MD Work Phone: Start: 05-07-2022 Mri brain brain stem w/o contrast material Narciso Guerra MD Work Phone: Start: 07-21-2020 ANESTH REPAIR OF HERNIA NAYA IZAGUIRRE Start: 07-21-2020 HERNIA REPAIR W/MESH RADHA IZAGUIRRE Start: 07-21-2020 Release Peritoneum, Percutaneous Endoscopic Approach NAYA IZAGUIRRE Start: 07-21-2020 ROBOTIC ASSISTED PROCEDURE OF TRUNK, PERC ENDO APPROACH NAYA IZAGUIRRE Start: 07-21-2020 ROBOTIC SURGICAL SYSTEM NAYA IZAGUIRRE Start: 07-21-2020 RPR VENTRAL JAGRUTI INI T REDUC NAYA IZAGUIRRE Start: 07-21-2020 SUPPLEMENT ABDOMINAL WALL WITH SYNTH SUB, PERC ENDO APPROACH NAYA IZAGUIRRE Start: 06-20-2020 Primary repair of inguinal hernia using synthetic patch Danin Santos Start: 11-18-2018 Sigmoidostomy Danni Graham Start: 09-20-2018 Partial resection of colon Danni Graham Start: 01-05-2016 Biopsy of prostate Margarita y Santos Comment on above: by Dr. Amato Extraction of cataract Danni Graham H/O: colostomy Status post colostomy, follow-up exam ([facility]) Nichol Heath MD Work Phone: Repair of artery Danni Graham Plan of Treatment Date Care Activity Detail Author Start: 11-23-2029 DTaP,Tdap and Td Vaccines (2 - Td or Tdap) DTaP,Tdap and Td Vaccines (2 - Td or Tdap) [facility] Start: 11-23-2029 Urine microalbumin profile DTaP,Tdap,Td Vaccine (2 - Td or Tdap) [facility] Start: 07-17-2027 Diabetes Screening Diabetes Screenin [facility] Start: 07-11-2025 Tobacco Screening Tobacco Screening [facility] Start: 07-10-2025 Adult BMI Screening Adult BMI Screen ing [facility] Start: 04-22-2025 DIABETES SCREEN DIABETES SCREEN [facility] Start: 04-22-2025 Diabetes Screening Diabetes Screenin [facility] Start: 01-17-2025 End: 07-20-2025 MR Brain WO and W contrast IV MR brain with and without contrast Imaging Routine Dementia with behavioral disturbance ([facility]) Expected: 01/17/2025 (Approximate), Expires: 07/20/2025 [employer] Work Phone: Comment on above: Expected: 01/17/2025 (Approximate), Expires: 07/20/2025 Start: 12-18-2024 End: 12-18-2024 Patient encounter procedure 12/18/2024 2:10 PM EDT Office Visit [facility] [address] [place] [phone] Flip Villar MD [address] [place] [address] [address] [place] [phone] [facility] Start: 10-31-2024 End: 10-31-2024 Patient encounter procedure 10/31/2024 4:30 PM EDT Office Visit [facility] [address] [address] Isak Elliott MD [address] [place] [address] 3mo f/u [facility] Comment on above: 3mo f/u Start: 08-15-2024 End: 08-15-2024 ambulatory 08/15/2024 9:30 AM EST OT/PT/Speech Visit [facility] [address] [place] [address] Shweta Hi, [facility] [employer] [address] [place] [address] History of traumatic brain injury [Z87.820] [facility] Comment on above: History of traumatic brain injury [Z87.820] Start: 07-30-2024 End: 07-30-2024 Patient encounter procedure 07/30/2024 12:40 PM EST Office Visit [facility] [address] [place] [address] Fidelina Fisher, CTO.OPERATIONS AND MAINTENANCE MANAGER [address] [place] [address] TBI (Traumatic Brain Injury) [facility] Comment on above: TBI (Traumatic Brain Injury) Start: 02-19-2024 Covid-19 Vaccine () Covid-19 Vaccine () [facility] Start: 02-19-2024 COVID-19 Vaccine () COVID-19 Vaccine () [facility] Start: 02-19-2024 Influenza vaccination [facility] Start: 06-20-2023 Behavioral Health Screening Behavioral Health Screening [facility] Start: 02-18-2023 Covid-19 Vaccine () Covid-19 Vaccine () [facility] Start: 02-18-2023 Influenza vaccination C [facility] Start: 10-12-2022 End: 12-12-2022 ADMARK PHOSPHO-TAU TOTAL-TAU/AB42 CSF [facility] Work Phone: Comment on above: Expected: 10/12/2022 , Expires: 12/12/2022 Start: 10-12-2022 End: 12-12-2022 Reagin Ab [Titer] in Cerebral spinal fluid by VDRL [facility] Work Phone: Comment on above: Expected: 10/12/2022 , Expires: 12/12/2022 Start: 08-11-2022 End: 10-11-2022 Cell count panel - Cerebral spinal fluid CSF CELL COUNT Lab Routine Memory loss Expected: 08/11/2022, Expires: 10/11/2022 [facility] Work Phone: Comment on above: Expected: 08/11/2022 , Expires: 10/11/2022 Start: 08-11-2022 End: 10-11-2022 Glucose [Mass/volume] in Cerebral spinal fluid GLUCOSE CSF Lab Routine Memory loss Expected: 08/11/2022, Expires: 10/11/2022 [facility] Work Phone: Comment on above: Expected: 08/11/2022 , Expires: 10/11/2022 Start: 08-11-2022 End: 10-11-2022 MISC SEND OUT TST 1 MISC SEND OUT TST 1 Lab Routine Memory loss Expected: 08/11/2022, Expires: 10/11/2022 [facility] Work Phone: Comment on above: Expected: 08/11/2022 , Expires: 10/11/2022 Start: 08-11-2022 End: 10-11-2022 Protein [Mass/volume] in Cerebral spinal fluid PROTEIN CSF Lab Routine Memory loss Expected: 08/11/2022, Expires: 10/11/2022 [facility] Work Phone: Comment on above: Expected: 08/11/2022 , Expires: 10/11/2022 Start: 08-11-2022 End: 10-11-2022 Reagin Ab [Titer] in Cerebral spinal fluid by VDRL VDRL CSF Lab Routine Memory loss Expected: 08/11/2022, Expires: 10/11/2022 [facility] Work Phone: Comment on above: Expected: 08/11/2022 , Expires: 10/11/2022 Start: 08-11-2022 End: 10-11-2022 TOURTELLOTTE BLOOD TOURTELLOTTE BLOOD Lab Routine Memory loss Expected: 08/11/2022, Expires: 10/11/2022 [facility] Work Phone: Comment on above: Expected: 08/11/2022 , Expires: 10/11/2022 Start: 06-20-2022 DEPRESSION ASSESSMENT DEPRESSION ASS ESSMENT [facility] Start: 02-18-2022 Influenza vaccination INFLUENZA (#1) [facility] Start: 06-20-2021 DEPRESSION ASSESSMENT DEPRESSION ASS ESSMENT [facility] Start: 05-29-2021 COVID-19 VACCINE (3 - Booster for Pfizer series) COVID-19 VACCINE (3 - Booster for Pfizer series) [facility] Start: 05-29-2021 COVID-19 VACCINE (3 - Pfizer series) COVID-19 VACCINE (3 - Pfizer series) [facility] Start: 2020 PROSTATE CANCER SCREENING DISCUSSION PROSTATE CANCER SCREENING DISCUSSION [facility] Start: 2020 Prostate specific antigen measurement Prostate Cancer Screening Discussion [facility] Start: 2015 Administration of varicella zoster vaccine Zoster (Shingles) Vaccine (1 of 2) [facility] Start: 2015 Pneumococcal Vaccine : 50+ (1 of 1 - PCV) Pneumococcal Vaccine: 50+ (1 of 1 - PCV) [facility] Start: 2015 SHINGRIX VACCINE (1 of 2) SHINGRIX VACCINE (1 of 2) [facility] Start: 2010 COLOGUARD (FIT-DNA) COLOGUARD (FIT-D NA) [facility] Start: [address] [facility] Start: 2010 COLORECTAL CANCER SCREENING COLORECTAL CANCER SCREENING [facility] Start: [address] COLONOGRAPHY [facility] Start: 2010 DIABETES SCREEN DIABETES SCREEN [facility] Start: 2010 FECAL OCCULT BLOOD FECAL OCCULT BLOO D [facility] Start: 2010 Screening for malign ant neoplasm of colon [facility] Start: 2010 SIGMOIDOSCOPY SIGMOIDOSCOPY [facility] Start: 2000 Lipid 1996 panel - S flakita or Plasma Lipid Screening [facility] Start: 2000 Lipid panel Lipid Screening [facility] Start: 2000 L[address] SCREEN LIPID SCREEN [facility] Start: 1984 Hepatitis B Vaccine (1 of 3 - 19+ 3-dose series) Hepatitis B Vaccine (1 of 3 - 19+ 3-dose series) [facility] Start: [address] [facility] Start: 1983 Adult BMI Follow Up Plan Adult BMI Follow Up Plan [facility] Start: 1983 Anxiety Screening Anxiety Screening [facility] Start: 1983 Depression Screening Depression Scre ing [facility] Start: 1983 HEPATITIS C SCREENING HEPATITIS C [facility] Start: 1983 Hepatitis C screening Hepatitis C [facility] Start: 1983 HIV SCREENING HIV SCREENING [facility] Start: 1977 Depression Screening Depression Scre ening [facility] Start: 1965 HEPATITIS B (1 of 3 - 3-dose series) HEPATITIS B (1 of 3 - 3-dose series) [facility] Start: 1965 Hepatitis B Vaccine (1 of 3 - 3-dose series) Hepatitis B Vaccine (1 of 3 - 3-dose series) [facility] End: 07-06-2024 ECG 12 lead ECG 12 lead ECG Routine Once for 1 Occurrences starting 07/06/2024 until 07/06/2024 [facility] Comment on above: Once for 1 Occurrenc es starting 07/06/2024 until 07/06/2024 End: 08-11-2023 LUMBAR PUNCTURE/YESICA LUMBAR PUNCTURE/YESICA NEUROLOGY Routine Memory loss 1 Occurrences starting 08/11/2022 until 08/11/2023 [facility] Work Phone: Comment on above: 1 Occurrences starti ng 08/11/2022 until 08/11/2023 End: 10-13-2023 LUMBAR PUNCTURE/YESICA LUMBAR PUNCTURE/YESICA NEUROLOGY Routine Memory loss 1 Occurrences starting 10/12/2022 until 10/13/2023 [facility] Work Phone: Comment on above: 1 Occurrences starti ng 10/12/2022 until 10/13/2023 Oxygen Therapy - Maintain SpO2: 90%; *RAIL BENDER Guidelines for O2: Yes; Document: [email or web address]\epi c\[email or web address]_Reference\Orders\ Respiratory Care Guidelines\CPG Oxygen 2022.pdf Oxygen Therapy - Maintain SpO2: 90%; *RAIL BENDER Guidelines for O2: Yes; Document: [email or web address]\EPIC_Reference\Order s\Respiratory Care Guidelines\CPG Oxygen 2022.pdf Respiratory Care Routine As Needed until discontinued starting 07/06/2024 [facility] Comment on above: As Needed until disc ontinued starting 07/06/2024 End: 01-01-2024 PAP TITRATION PSG (CPAP, BIPAP, ASV) PAP TITRATION PSG (CPAP, BIPAP, ASV) Procedures Routine Obstructive sleep apnea 1 Occurrences starting 12/02/2022 until 01/01/2024 [facility] Work Phone: Comment on above: 1 Occurrences starti ng 12/02/2022 until 01/01/2024 End: 07-09-2024 Prion Markers, Creutzfeldt-Osei Disease(14-3-3 Protein Tau, Total), CSF [email or web address] Work Phone: Comment on above: Once for 1 Occurrenc es starting 07/09/2024 until 07/09/2024 End: 07-06-2024 Pulse oximetry, spot On current oxygen flow Pulse oximetry, spot On current oxygen flow Respiratory Care Routine Once for 1 Occurrences starting 07/06/2024 until 07/06/2024 [email or web address] Work Phone: Comment on above: Once for 1 Occurrenc es starting 07/06/2024 until 07/06/2024 Removal impacted cer umen irrigation/lvg unilat AMBULATORY EAR LAVAGE/IRRIGATION Procedures Routine Bilateral impacted cerumen Ordered: 04/22/2022 [facility] Work Phone: Comment on above: Ordered: 04/22/2022 [place] CSF TOU[place] CS F Lab Routine Memory loss Ordered: 08/11/2022 [facility] Work Phone: Comment on above: Ordered: 08/11/2022 [facility] Immunizations Immunization Date Immunization Notes Care Provider Genna amaro 11-24-2019 tetanus toxoid, redu zenia diphtheria toxoid, and acellular pertussis vaccine, adsorbed [facility] Payers Date Payer Category Payer Medicare DEVOTED MEDICARE [facility] PPO [id number] 2024-Present [phone] [address] [place] [id number] [facility] [id number] 2024 Medicare HMO [facility] [id number] 2024 Private Health Insurance DEVOTED MEDICARE [id number] 2024 Medicare [id number] 2024 Self-pay 2024 Unknown [id number] 2024 Unknown [id number] 2021 Unknown [id number] 1.13.159.2. [id number] 1965 Unknown [id number] 2.16.840.1.750094.3.579.2. 647 1965 Unknown [id number] 2.16.840.1.194742.3.579.2. 647 1965 Unknown [id number] 2.16.840.1.224962.3.579.2. 593 1965 Unknown [id number] 2.16.840.1.825242.3.579.2. 593 1965 Unknown [id number] 2.16.840.1.454722.3.579.2. 593 1965 Unknown [id number] 2.16.840.1.645073.3.579.2. 1286 1965 Unknown [id number] 2.16.840.1.340916.3.579.2. 1286 1965 Unknown [id number] 2.16.840.1.120119.3.579.2. 1286 1965 Unknown [id number] 2.16.840.1.529453.3.579.2. 1286 1965 Unknown [id number] 2.16.840.1.650544.3.579.2. 1286 1965 Unknown [id number] 2.16.840.1.368879.3.579.2. 1286 1965 Unknown [id number] 2.16.840.1.617633.3.579.2. 128 1965 Unknown [id number] 2.16.840.1.665453.3.579.2. 128 1965 Unknown [id number] 2.16.840.1.830001.3.579.2. 727 1965 Unknown [id number] 2.16.840.1.504608.3.579.2. 727 1965 Unknown [id number] 2.16.840.1.172607.3.579.2. 727 1965 Unknown [id number] 2.16.840.1.148263.3.579.2. 1285 1965 Unknown [id number] 2.16.840.1.508787.3.579.2. 128 1965 Unknown [id number] 2.16840.1.779526.3.579.2. 1285 1965 Unknown [id number] 2.16840.1.428348.3.579.2. 128 1965 Unknown [id number] 2.16840.1.125197.3.579.2. 1285 1965 Unknown [id number] 2.16840.1.030323.3.579.2. 128 1965 Unknown [id number] 2.16840.1.521869.3.579.2. 1285 1965 Unknown [id number] 2.16840.1.046325.3.579.2. 1286 1959 Unknown [id number] 1959 Unknown [id number] Unknown [id number] 2.16840.1.067077.3.579.2. 531 Unknown [id number] 2.16840.1.915838.3.579.2. 531 Social History Date Type Detail Facility Start: 09-12-2018 End: 04-22-2022 Tobacco smoking status NHIS Never smoked tobacco [facility] Start: 09-12-2018 End: 04-22-2022 Tobacco use and exposure Smokeless tobacco non-user [facility] Start: 04-22-2022 End: 07-30-2024 Alcohol intake Ex-drinker (finding) [facility] Start: 1965 Sex Assigned At Not on file [facility] Start: 04-12-2022 End: 05-07-2022 Exposure to SARS-CoV-2 (event) Not sure [facility] Start: 10-12-2022 End: 11-17-2022 History of [address] [facility] Start: 10-12-2022 End: 11-17-[address] [facility] Adult Depression Screening Assessment 2 [facility] Start: 1965 Sex Assigned At Male F [facility] Start: 07-11-2024 End: 07-17-2024 Alcoholic beverage intake Current non-drinker of alcohol (finding) [facility] Start: 01-23-2015 Sex Male (finding) [facility] Medical Equipment Procedure Code Equipment Code [...] Assessment Result Facility 06-21-2024 Functional Status No [facility] 01-11-2024 Functional Status N/A [facility] Mental Status Date Assessment Result Facility [facility] Clinical Notes 07-24-2020 to 07-30-2024 Fidelina Fisher, CTO.OPERATIONS AND MAINTENANCE MANAGER - 07/30/2024 12:36 PM Karsten Martinez RN - 07/22/2024 10:22 AM ESTPlan of Care - Ethel Martinez RN - 07/22/2024 10:22 AM Karsten Martinez RN - 07/22/2024 10:22 AM EST Note Date & Type Note Facility 07-30-2024 Note HNO ID: [id number] Author: FIDELINA FISHER APRN.OPERATIONS AND MAINTENANCE MANAGER Service: ? Author Type: Nurse Practitioner Type: Progress Notes Filed: 08/12/2024 22:55 Note Text: July 30, 2024 Reason for visit: Patient presents with: Consult Previous Visit: No previous PMANDR. HPI (brief) Noé Jeffery is a 59 year old male. PMHx of TBI and HDL. He had an unwitnessed fall down the stairs. Per family he had a fall in May 2024. He was evaluated at [facility] following the fall. Per he had an episode with agitation. Per family he was not displaying agitation prior to the fall. Family notes prior to his fall he was driving and independent with his care. He is now requiring a lot of assistance with care. Subjective: Patient presents with: Consult Family notes concerns with coordination. [facility] has been [facility]. Per his family his dementia symptoms seems to have worsen following his fall. 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 Per family he had a rough admission with jalen at [facility] in [place]. He was started on Seroquel at bedtime. Neuro: -TBI: 05/2024 -Other: Dementia Function: He has been requiring assistance with ADLs and IADLs. Able to feed himself, he is a set up for grooming. -Self care: -Mobility: no assistive devices. -Gait/stairs: He does do stairs every other day to get to the shower. -Falls: Last fall was 05/2024. No falls since returning home a week ago. Weakness: Denies any muscle weakness. Pain: - Denies any pain. Balance: - Denies any balance issues. Dizziness: - Denies any dizziness. Hearing/Vision Cognition: - has underline dementia. Following with [facility]. Sleep: - He has been having issues with night terrors. notes that last night he was agitated. Bowel: Denies any concerns with bowels. Bladder: Denies any concerns with bladder. Recent labs/Imaging related to complaint: MRI BRAIN WO IVCON Findings: The high attenuation focus shown on [...] and cranio-cervical junction. Flow voids documented in [place] and dural venous sinuses. No pathologic contrast enhancement. Diffusion weighted images show no evidence for acute infarct. The deep white matter shows no acute changes. Medications Reviewed divalproex sprinkle (DEPAKOTE SPRINKLES) 125 mg capsule Take 500 mg by mouth. acetaminophen (TYLENOL) 500 mg tablet Take 500 mg by mouth every 6 hours as needed. DULoxetine (CYMBALTA) 20 mg capsule Take 20 mg by mouth. QUEtiapine (SEROQUEL) 50 mg tablet Take by mouth. donepezil (ARICEPT) 5 mg tablet take 1 tablet by mouth every day CPAP/BIPAP/OTHER Type .CPAPSettings into a note to see current settings/supplies/DME information. OARRS reviewed to confirm/clarify any controlled medications Allergies Reviewed PAST MEDICAL HISTORY: ACTIVE PROBLEM LIST Bilateral High Frequency Sensorineural Hearing Loss Tinnitus, Bilateral Hld (Hyperlipidemia) No past surgical history on file. Social History Tobacco Use Smoking status: Never Smokeless tobacco: Never Substance Use Topics Alcohol use: Not Currently family history is not on file. Review of systems as noted, reviewed, and documented on intake section. Physical Exam: 07/30/24 1233 BP: 99/63 BP Site: Right Arm BP Position: Sitting BP Cuff Size: Large Adult Pulse: 84 Temp: 36.4 ?C (97.6 ?F) TempSrc: Temporal Weight: 76.2 kg (167 lb 15.9 oz) General: no acute distress. Awake, alert. Cardiopulmonary: unlabored breathing. Appears well perfused Abdomen: non-distended, Lower Extremities: no edema, no calf tenderness. 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 PMHx of TBI and HDL. He had an unwitnessed fall down the stairs. Per family he had a fall in May 2024. He was evaluated at [facility] following the fall. He arrives today with his sister and for management following his TBI. Per and sister he has had significant change with his cognition since the f (more content not included)... [facility] 07-30-2024 History of Present illness Narrative July 30, 2024 Reason for visit: Patient presents with: Consult Previous Visit: No previous PM&R. HPI (brief) Noé Jeffery is a 59 year old male. PMHx of TBI and HDL. He had an unwitnessed fall down the stairs. Per family he had a fall in May 2024. He was evaluated at [facility] following the fall. Per he had an episode with agitation. Per family he was not displaying agitation prior to the fall. Family notes prior to his fall he was driving and independent with his care. He is now requiring a lot of assistance with care. Subjective: Patient presents with: Consult Family notes concerns with coordination. He has been following with [facility] for his dementia. Per his family his dementia symptoms seems to have worsen following his fall. 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 Per family he had a rough admission with jalen at [facility] in [place]. He was started on Seroquel at bedtime. Neuro: -TBI: 05/2024 -Other: Dementia Function: He has been requiring assistance with ADLs and IADLs. Able to feed himself, he is a set up for grooming. -Self care: -Mobility: no assistive devices. -Gait/stairs: He does do stairs every other day to get to the shower. -Falls: Last fall was 05/2024. No falls since returning home a week ago. Weakness: Denies any muscle weakness. Pain: - Denies any pain. Balance: - Denies any balance issues. Dizziness: - Denies any dizziness. Hearing/Vision Cognition: - has underline dementia. Following with [facility]. Sleep: - He has been having issues with night terrors. notes that last night he was agitated. Bowel: Denies any concerns with bowels. Bladder: Denies any concerns with bladder. Recent labs/Imaging related to complaint: MRI BRAIN WO IVCON Findings: The high attenuation focus shown on [...] and cranio-cervical junction. Flow voids documented in [place] and dural venous sinuses. No pathologic contrast enhancement. Diffusion weighted images show no evidence for acute infarct. The deep white matter shows no acute changes. Medications Reviewed divalproex sprinkle (DEPAKOTE SPRINKLES) 125 mg capsule Take 500 mg by mouth. acetaminophen (TYLENOL) 500 mg tablet Take 500 mg by mouth every 6 hours as needed. DULoxetine (CYMBALTA) 20 mg capsule Take 20 mg by mouth. QUEtiapine (SEROQUEL) 50 mg tablet Take by mouth. donepezil (ARICEPT) 5 mg tablet take 1 tablet by mouth every day CPAP/BIPAP/OTHER Type .CPAPSettings into a note to see current settings/supplies/DME information. OARRS reviewed to confirm/clarify any controlled medications Allergies Reviewed PAST MEDICAL HISTORY: ACTIVE PROBLEM LIST Bilateral High Frequency Sensorineural Hearing Loss Tinnitus, Bilateral Hld (Hyperlipidemia) No past surgical history on file. Social History Tobacco Use Smoking status: Never Smokeless tobacco: Never Substance Use Topics Alcohol use: Not Currently family history is not on file. Review of systems as noted, reviewed, and documented on intake section. Physical Exam: 07/30/24 1233 BP: 99/63 BP Site: Right Arm BP Position: Sitting BP Cuff Size: Large Adult Pulse: 84 Temp: 36.4 C (97.6 F) TempSrc: Temporal Weight: 76.2 kg (167 lb 15.9 oz) General: no acute distress. Awake, alert. Cardiopulmonary: unlabored breathing. Appears well perfused Abdomen: non-distended, Lower Extremities: no edema, no calf tenderness. 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 PMHx of TBI and HDL. He had an unwitnessed fall down the stairs. Per family he had a fall in May 2024. He was evaluated at [facility] following the fall. He arrives today with his sister and for management following his TBI. Per and sister he has had significant change with his cognition since the fall. states that prior to the fall in May he was able to care for himself and was still driving. He now is requiring assistance with ADLs and IADLs. He also continues to have cognitive concerns. Per too he has been dealing with some agitation since his admission with [facility]. No diagnosis found. ACTIVE PROBLEM LIST Bilateral High Frequency Sensorineural Hearing Loss Tinnitus, Bilateral Hld (Hyperlipidemia) No orders found for this visit on 07/30/24. ASSESSMENT & PLAN: ASSESSMENT/PLAN: 1. History of traumatic brain injury - ICD9: V15.52, ICD10: Z87.820 (primary diagnosis) - CONSULT TO SPEECH THERAPY - Behaviors and cognition may be multifactorial with history of dementia and new TBI. Agitation is improving. Family questioning IP rehab. At this time pt is stable and would not meet IP criteria. 2. Dementia, unspecified dementia severity, unspecified dementia type, unspecified whether behavioral, psychotic, or mood disturbance or anxiety (HCC) - ICD9: 294.20, ICD10: F03.90 - Will get updated [place] and scan in records. - CONSULT TO SPEECH THERAPY 3. Cognitive deficits - ICD9: 294.9, ICD10: R41.89 - CONSULT TO SPEECH THERAPY 4. Impaired mobility and ADLs - ICD9: V49.89, ICD10: Z74.09, Z78.9 - consider physical therapy if mobility worsens 5. 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) - ICD9: 294.21, ICD10: F03.911 - continue with Seroquel. - Recommend continue follow up with dementia clinic During our face to face clinical encounter we discussed my concerns neurologically in terms of diagnosis, impact on health and activities of living, and addressed questions. I tried to reassure the patient and also address questions. I explained to the patient to call if any questions, to review results, and follow-up as instructed or as needed. Patient verbalizes understanding and I have addressed concerns and questions at this visit Patient has my contacts, educational material provided, and my chart sign up. After visit summary discussed. I spent a total of 45 minutes on the date of the service which included preparing to see the patient, [id number] patient care, completing clinical documentation, performing a medically appropriate examination, counseling and educating the patient/family/caregiver, ordering medications, tests, or procedures and communicating results to the patient/family/caregiver. Fidelina Fisher APRN.EFRAIN Physical Medicine & Rehab [facility] documented in this encounter [facility] 07-22-2024 Nurse Note AVS discussed with patient and family, no further questions about discharge. No further needs identified. Patient taken downstairs by wheelchair to be driven home by . [employer] 07-22-2024 Plan of care note Problem: Safety [...] at the bedside 7. Instruct patient/ patient graphic art sales representative about use of safety devices 8. Include patient/ patient graphic art sales representative in decisions related to safety Outcome: Adequate for Discharge Problem: Knowledge Deficit Goal: Patient/patient graphic art sales representative demonstrates understanding of disease process, treatment [...] of =/> 25 or indicated by [facility] Rehab Assessment Goal: Patient should be free from fall Description: Interventions: 1. [place] to environment 2. Hourly rounds addressing the [...] non-skid footwear 11. Teach patient and patient graphic art sales representative to maintain environment for safety and [...] (cane, walker) within reach 19. Request patient graphic art sales representative bring adaptive equipment/mobility aids from home or obtain and provide as needed 20. Consult pharmacy regarding effects of med's affecting mobility, cognition, and alternatives 21. Obtain physician order for PT if risk factors associated with mobility are present 22. Obtain physician order for OT as appropriate 23. Utilize diversional activities 24. Educate patient and patient graphic art sales representative how to maintain a safe environment during visitation times (notify nurse prior to leaving bedside) 25. Consider appropriateness of medical or non-medical technologist microbiology 26. Set up voiding schedule as appropriate (every 2 hours) Outcome: Adequate for Discharge [facility] [employer] 07-22-2024 Miscellaneous Notes Problem: Safety Goal: Patient [...] at the bedside 7. Instruct patient/ patient graphic art sales representative about use of safety devices 8. Include patient/ patient graphic art sales representative in decisions related to safety Outcome: Adequate for Discharge Problem: Knowledge Deficit Goal: Patient/patient graphic art sales representative demonstrates understanding of disease process, treatment [...] of =/> 25 or indicated by [facility] Rehab Assessment Goal: Patient should be free from fall Description: Interventions: 1. [place] to environment 2. Hourly rounds addressing the [...] non-skid footwear 11. Teach patient and patient graphic art sales representative to maintain environment for safety and [...] (cane, walker) within reach 19. Request patient graphic art sales representative bring adaptive equipment/mobility aids from home or obtain and provide as needed 20. Consult pharmacy regarding effects of med's affecting mobility, cognition, and alternatives 21. Obtain physician order for PT if risk factors associated with mobility are present 22. Obtain physician order for OT as appropriate 23. Utilize diversional activities 24. Educate patient and patient graphic art sales representative how to maintain a safe environment during visitation times (notify nurse prior to leaving bedside) 25. Consider appropriateness of medical or non-medical technologist microbiology 26. Set up voiding schedule as appropriate [...] at the bedside 7. Instruct patient/ patient graphic art sales representative about use of safety devices 8. Include patient/ patient graphic art sales representative in decisions related to safety Outcome: Progressing Note: Evaluation of progress towards goal: pt remains free from injury. Family at bedside. Problem: Knowledge Deficit Goal: Patient/patient graphic art sales representative demonstrates understanding of disease process, treatment [...] of =/> 25 or indicated by [facility] Rehab Assessment Goal: Patient should be free from fall Description: Interventions: 1. [place] to environment 2. Hourly rounds addressing the [...] non-skid footwear 11. Teach patient and patient graphic art sales representative to maintain environment for safety and [...] (cane, walker) within reach 19. Request patient graphic art sales representative bring adaptive equipment/mobility aids from home or obtain and provide as needed 20. Consult pharmacy regarding effects of med's affecting mobility, cognition, and alternatives 21. Obtain physician order for PT if risk factors associated with mobility are present 22. Obtain physician order for OT as appropriate 23. Utilize diversional activities 24. Educate patient and patient graphic art sales representative how to maintain a safe environment during visitation times (notify nurse prior to leaving bedside) 25. Consider appropriateness of medical or non-medical technologist microbiology 26. Set up voiding schedule as appropriate (every 2 hours) Outcome: Progressing Note: Evaluation of progress towards goal: pt remains free from falls. Fall precautions in place and family at bedside Problem: Moderate - High Risk Fall Score Description: [place] Fall Score of =/> 25 or indicated by [facility] Rehab Assessment Goal: Patient should be free from fall Description: Interventions: 1. [place] to environment 2. Hourly rounds addressing the [...] non-skid footwear 11. Teach patient and patient graphic art sales representative to maintain environment for safety and [...] (cane, walker) within reach 19. Request patient graphic art sales representative bring adaptive equipment/mobility aids from home or obtain and provide as needed 20. Consult pharmacy regarding effects of med's affecting mobility, cognition, and alternatives 21. Obtain physician order for PT if risk factors associated with mobility are present 22. Obtain physician order for OT as appropriate 23. Utilize diversional activities 24. Educate patient and patient graphic art sales representative how to maintain a safe environment during visitation times (notify nurse prior to leaving bedside) 25. Consider appropriateness of medical or non-medical technologist microbiology 26. Set up voiding schedule as appropriate (every 2 hours) Outcome: Progressing Note: Evaluation of progress towards goal: pt remains free from falls. Fall precautions in place and family at bedside DISCHARGE PLANNING NOTE Post Commander spoke with RN KAY Graf and with supervisor in charge Mylena about current situation regarding appeal decision and DC plan to home with outpatient services. Post Commander placed a call to the who was in the patient's room due to the questions she had re: the discharge plan. Post Commander spoke with , Kari on 07/21/24 at 1325. Post Commander reviewed Eduardo's DC Appeal Determination Notification with the who confirmed that she had received a voicemail from [facility] this morning. Post Commander explained that Eduardo had agreed with the termination of hospital services after having reviewed the uploaded clinical documents from this hospitalization that typewriter ribbon winder had sent to them yesterday. expressed verbal understanding to of Eduardo's decision. Post Commander explained that patient's financial liability would begin at Noon on 07/22/24 and offered our care navigation assistance with obtaining transportation to home. had questions about why referrals were not made to care home facilities that family had now chosen, [facility] and [facility]). Post Commander explained to the that the patient did not meet the clinical criteria this time for a care home/rehab facility level of care and reminded her that a discussion about this took place this past week/yesterday with the treatment team. explained that she never agreed to take her home and her and her family now want SNF placement. Post Commander continued to explain to the process of [...] prior to bringing him to the hospital. Post Commander offered supportive listening to the and also offered for her to connect with patient's PCP, Dr. Lopez after she gets her home for resources. Post Commander also discussed the outpatient TBI clinic appointment that was being discussed yesterday and that information would be included on patient's after visit summary. Post Commander explained that if was not going to make arrangements to take patient home by noon on 07/22, that patient's financial responsibility of $2640.00 per day would begin. expressed verbal understanding to typewriter ribbon winder. Post Commander emailed financial responsibility form with instruction to supervisor in chargeCm (and cce'd today's RN Lesia Felton for awareness) for bedside delivery today. is aware of pending paper copy delivery of this form. - NELLI GLEZ COOKER CASING CARE NAVIGATION 07/21/24 2:11 PM DISCHARGE PLANNING NOTE We have received DC Appeal Determination Notification from Daryl and Daryl has agreed with the termination of services. Beneficiary liability begins 07.22.2024 by Noon. Beneficiary and/or beneficiary graphic art sales representative were to be notified of determination via phone call. Joanta determination notification rec'd at 1032 and letter rec'd [phone] were received by typewriter ribbon winder via fax. Post Commander uploaded documents to document list. Documentation updated. Post Commander received forwarded voice mail 07/21/24 at 1032 from Eduardo Duran's Immediate Advocacy Department , who had left message on Care Navigation Department voice mail at 1617 on 07/20/24, stating he was representing patient's family who had called [facility] asking 1) why denial reason wasn't given re: transfer to another care facility and 2) if the preferred facility by family was able to accept. Reference Case # given from Nica [id number]. Post Commander attempted to call Nica back on 07/21/24 at 1214 and typewriter ribbon winder rec'd auto message from [facility] which stated only live phone calls with [facility] are Tuesday thru Tuesday. Post Commander left voicemail citing reference case # [id number]. Post Commander stated reason for return phone call and requested call back from Nica. - NELLI GLEZ COOKER CASING CARE NAVIGATION 07/21/24 12:37 PM Problem: Safety [...] at the bedside 7. Instruct patient/ patient graphic art sales representative about use of safety devices 8. Include patient/ patient graphic art sales representative in decisions related to safety Outcome: Progressing Note: Evaluation of progress towards goal: Pain will be adequately controlled to allow for rest and adl's Problem: Knowledge Deficit Goal: Patient/patient graphic art sales representative demonstrates understanding of disease process, treatment [...] of =/> 25 or indicated by [facility] Rehab Assessment Goal: Patient should be free from fall Description: Interventions: 1. [place] to environment 2. Hourly rounds addressing the [...] non-skid footwear 11. Teach patient and patient graphic art sales representative to maintain environment for safety and [...] (cane, walker) within reach 19. Request patient graphic art sales representative bring adaptive equipment/mobility aids from home or obtain and provide as needed 20. Consult pharmacy regarding effects of med's affecting mobility, cognition, and alternatives 21. Obtain physician order for PT if risk factors associated with mobility are present 22. Obtain physician order for OT as appropriate 23. Utilize diversional activities 24. Educate patient and patient graphic art sales representative how to maintain a safe environment during visitation times (notify nurse prior to leaving bedside) 25. Consider appropriateness of medical or non-medical technologist microbiology 26. Set up voiding schedule as appropriate [...] at the bedside 7. Instruct patient/ patient graphic art sales representative about use of safety devices 8. Include patient/ patient graphic art sales representative in decisions related to safety Outcome: Progressing Note: Evaluation of progress towards goal: pt remains free from injury Problem: Knowledge Deficit Goal: Patient/patient graphic art sales representative demonstrates understanding of disease process, treatment [...] of =/> 25 or indicated by [facility] Rehab Assessment Goal: Patient should be free from fall Description: Interventions: 1. [place] to environment 2. Hourly rounds addressing the [...] non-skid footwear 11. Teach patient and patient graphic art sales representative to maintain environment for safety and [...] (cane, walker) within reach 19. Request patient graphic art sales representative bring adaptive equipment/mobility aids from home or obtain and provide as needed 20. Consult pharmacy regarding effects of med's affecting mobility, cognition, and alternatives 21. Obtain physician order for PT if risk factors associated with mobility are present 22. Obtain physician order for OT as appropriate 23. Utilize diversional activities 24. Educate patient and patient graphic art sales representative how to maintain a safe environment during visitation times (notify nurse prior to leaving bedside) 25. Consider appropriateness of medical or non-medical technologist microbiology 26. Set up voiding schedule as appropriate (every 2 hours) Outcome: Progressing Note: Evaluation of progress towards goal: fall precautions in place and pt remains free from falls DISCHARGE PLANNING NOTE Patient's family has appealed his discharge & we have received notification from [facility] that a DC appeal has been called in. The chart, DND form, & IMM have been successfully uploaded by typewriter ribbon winder to the [facility] and successfully received by [facility]. [facility] will notify the of the patient of the appeal determination. Post Commander phone called patient's & read the DND notice to her. Paper copy of the DND notice to be delivered to the patient's bedside. Post Commander informed to anticipate phone call from [facility] re: determination of DC Appeal & encouraged wifeto answer the phone when [facility] calls. expressed verbal understanding of DND and the DC appeal process. - NELLI GLEZ COOKER CASING CARE NAVIGATION 07/20/24 5:13 PM Problem: Safety [...] at the bedside 7. Instruct patient/ patient graphic art sales representative about use of safety devices 8. Include patient/ patient graphic art sales representative in decisions related to safety Outcome: Progressing Note: Evaluation of progress towards goal: Patient remains injury free at this time. Problem: Knowledge Deficit Goal: Patient/patient graphic art sales representative demonstrates understanding of disease process, treatment [...] of =/> 25 or indicated by [facility] Rehab Assessment Goal: Patient should be free from fall Description: Interventions: 1. [place] to environment 2. Hourly rounds addressing the [...] non-skid footwear 11. Teach patient and patient graphic art sales representative to maintain environment for safety and [...] (cane, walker) within reach 19. Request patient graphic art sales representative bring adaptive equipment/mobility aids from home or obtain and provide as needed 20. Consult pharmacy regarding effects of med's affecting mobility, cognition, and alternatives 21. Obtain physician order for PT if risk factors associated with mobility are present 22. Obtain physician order for OT as appropriate 23. Utilize diversional activities 24. Educate patient and patient graphic art sales representative how to maintain a safe environment during visitation times (notify nurse prior to leaving bedside) 25. Consider appropriateness of medical or non-medical technologist microbiology 26. Set up voiding schedule as appropriate (every 2 hours) Outcome: Progressing Note: Evaluation of progress towards goal: Patient remains free from falls at this time. DISCHARGE PLANNING NOTE 07/30 at 12:40 Hospital follow up with Fidelina Fisher CNP [facility] TBI [id number] [place], [place] [id number] Confirmed with Taylor at [facility] she did receive the updated notes (neuro, PMR, PT/OT) that were faxed and uploaded to [facility]. She is almost finishing writing it up for physician review and will call us with their determination by 10am. 9:31 am Received call from Taylor at [facility] IPR-she reviewed updated notes with medical voucher clerk and they remain unable to accept after our 3rd request for review. She said he is doing too well functionally, does not need OT/PT services. She said after discussion with medical voucher clerk their facility would be of no benefit to the patient. This information was communicated to interdisciplinary team via epic chat DISCHARGE PLANNING NOTE Sent face sheet to [facility] for hospital transfer via secure fax to # [phone] DISCHARGE PLANNING NOTE Discharge plan- awaiting responses from [facility] if they can accept. Tasked [facility] to send neuro note from yesterday to them again. Tasked [facility] to fax his face sheet to [facility] per physician request since she is calling them about a hospital to hospital transfer per families request. Leadership team aware. - NANCY PARRISH 07/20/24 8:19 AM Discussed patient and d/c planning with leadership team. Everyone in agreement with d/c today since per physician [facility] can not accept as a hospital transfer and [facility] has denied as well. Physician and this typewriter ribbon winder spoke with patient, and sister that is present re: d/c today and that patient will be going home with outpatient ST and an appointment has been made for a TBI clinic for follow up. Provided IMM to and explained. Leadership aware. - NANCY PARRISH 07/20/24 11:29 AM DISCHARGE PLANNING NOTE Neuro Note sent to [facility] (P# [phone] ; F# [phone]) [facility]. Problem: Safety Goal: Patient will be injury free during hospitalization Description: INTERVENTIONS: 1. Assess patient's risk for falls and implement fall prevention plan of care per policy 2. Provide and maintain a safe environment 3. Proper use of double Identifiers 4. Medication administration using the 5 rights 5. Hand hygiene 6. Specimens are labeled at the bedside 7. Instruct patient/ patient graphic art sales representative about use of safety devices 8. Include patient/ patient graphic art sales representative in decisions related to safety Outcome: Progressing Note: Evaluation of progress towards goal: Pt remains free from injury and significant other at bedside Problem: Knowledge Deficit Goal: Patient/patient graphic art sales representative demonstrates understanding of disease process, treatment [...] of =/> 25 or indicated by [facility] Rehab Assessment Goal: Patient should be free from fall Description: Interventions: 1. [place] to environment 2. Hourly rounds addressing the [...] non-skid footwear 11. Teach patient and patient graphic art sales representative to maintain environment for safety and [...] (cane, walker) within reach 19. Request patient graphic art sales representative bring adaptive equipment/mobility aids from home or obtain and provide as needed 20. Consult pharmacy regarding effects of med's affecting mobility, cognition, and alternatives 21. Obtain physician order for PT if risk factors associated with mobility are present 22. Obtain physician order for OT as appropriate 23. Utilize diversional activities 24. Educate patient and patient graphic art sales representative how to maintain a safe environment during visitation times (notify nurse prior to leaving bedside) 25. Consider appropriateness of medical or non-medical technologist microbiology 26. Set up voiding schedule as appropriate (every 2 hours) Outcome: Progressing Note: Evaluation of progress towards goal: pt remains free from falls and fall precautions are in place DISCHARGE PLANNING NOTE Updates to [facility] (P# [phone] ; F# [phone]) Occupational Therapy Treatment Discharge Recommendations OT Recommendations [...] therapy per MARCI Rothman Equipment: gait belt Telemetry/Horticultural Farm Manager: No Oxygen Used: room air Other: fall [...] up w/mother's name; educated sister on playing [employer] songs from pt's younger years, to encourage [...] Date/Time User Outcome 07/19/24 1445 Yoanna Han-Mahoney, MARINATOR/L Progressing 07/17/24 1439 Yoanna Han-Mahoney, MARINATOR/L Progressing Problem: Bathing LB Dates: Start: 07/13/24 [...] Date/Time User Outcome 07/19/24 1445 Yoanna Guille-Mahoney, KWADWO/L Progressing 07/17/24 1439 Yoanna Guille-Mahoney, MARINATOR/L Progressing Problem: Dressing LB Dates: Start: 07/13/24 [...] Date/Time User Outcome 07/19/24 1445 Yoanna Han-Mahoney, MARINATOR/L Progressing 07/17/24 1439 Yoanna Han-Mahoney, MARINATOR/L Progressing Problem: Grooming Dates: Start: 07/13/24 Disciplines: OT Goal: Patient will perform grooming Independently Dates: Start: 07/13/24 Expected End: 08/13/24 Description: Goal Description: Disciplines: OT Outcomes Date/Time User Outcome 07/17/24 1439 Yoanna Han-Mahoney, MARINATOR/L Progressing Problem: Standing Balance Dates: Start: 07/13/24 Disciplines: OT Goal: Improve balance to normal Dates: Start: 07/13/24 Expected End: 08/13/24 Description: Normal dynamic balance. Disciplines: OT Outcomes Date/Time User Outcome 07/19/24 1445 Yoanna Han-Mahoney, MARINATOR/L Progressing 07/17/24 1439 Yoanna Ahn-Mahoney, KWADWO/L Progressing Problem: Toilet Transfers Dates: Start: [...] problems. Principal Problem: Dementia with behavioral disturbance ([facility] [facility]) Active Problems: Altered mental status Status post colostomy, follow-up exam ([facility]) Cosigned by RAMONITA Dillon at 07/19/2024 3:13 PM EST Associated attestation [...] 6 Clicks: Basic Mobility Raw Score: 20 [facility] G Code Modifier: CJ Patient Response to Treatment: Slow progress, decreased activity tolerance Assessment Patient Assessment Patient Response to Treatment: Slow progress, decreased activity tolerance Visit RN Communication: Yes Medical Record Reviewed: Yes PT Type of Visit: Treatment Precautions Activity: ok for therapy per MARCI Rothman Equipment: gait belt Telemetry/Horticultural Farm Manager: Yes Oxygen Used: room air Other: fall [...] Goal: Patient will perform stairs/curb with Modified [place] Dates: Start: 07/13/24 Expected End: 07/27/24 Description: [...] problems. Principal Problem: Dementia with behavioral disturbance ([facility]) Active Problems: Altered mental status Status post colostomy, follow-up exam ([facility]) Cosigned by Jose Gorman [...] at the bedside 7. Instruct patient/ patient graphic art sales representative about use of safety devices 8. Include patient/ patient graphic art sales representative in decisions related to safety Outcome: Progressing Note: Evaluation of progress towards goal: Patient remains injury free at this time. Problem: Knowledge Deficit Goal: Patient/patient graphic art sales representative demonstrates understanding of disease process, treatment [...] of =/> 25 or indicated by [facility] Rehab Assessment Goal: Patient should be free from fall Description: Interventions: 1. [place] to environment 2. Hourly rounds addressing the [...] non-skid footwear 11. Teach patient and patient graphic art sales representative to maintain environment for safety and [...] (cane, walker) within reach 19. Request patient graphic art sales representative bring adaptive equipment/mobility aids from home or obtain and provide as needed 20. Consult pharmacy regarding effects of med's affecting mobility, cognition, and alternatives 21. Obtain physician order for PT if risk factors associated with mobility are present 22. Obtain physician order for OT as appropriate 23. Utilize diversional activities 24. Educate patient and patient graphic art sales representative how to maintain a safe environment during visitation times (notify nurse prior to leaving bedside) 25. Consider appropriateness of medical or non-medical technologist microbiology 26. Set up voiding schedule as appropriate (every 2 hours) Outcome: Progressing Note: Evaluation of progress towards goal: Patient remains free from falls. DISCHARGE PLANNING NOTE Updates to [facility] (P# ; F# ) Images from the original note were not included. DISCHARGE PLANNING NOTE Discussed patient today during rounds. Plan-TBI center VS IPR. This typewriter ribbon winder and floor Mgr spoke with patient's over the phone and his sister in his room re: d/c planning. Updated them that [facility] has denied. Offered to send referral to [facility] to see if they can accept as well as sending blanketed SNF referrals. They are in agreement with sending to [facility] at this time and will let us know today if they would like SNF referrals sent or if the back up plan would be home. Tasked [facility] to send referral to [facility]. Leadership team aware. Services Requested: Services Requested Patient expects to be discharged to:: TBI center VS IPR Discharge Disposition: Acute rehab Patient Goals: Goals: Goals <enter goal here> (pt-stated) Evaluation of progress towards goal: TBI center vs IPR - NANCY PARRISH 07/19/24 10:42 AM This typewriter ribbon winder and flooring installer and Dr. Shipley spoke with patient, and sister re: d/c planning. They are aware that [facility] is still reviewing referral. Asked if SNF referrals can be sent and they declined stating they would like the physician to see if she can get him transferred to [facility] as a physician to physician transfer. Updated Leadership. If neither of these hospitals can accept then patient to d/c home with since SNF has been declined. - NANCY PARRISH 07/19/24 12:14 PM This typewriter ribbon winder and floor mgr spoke with family to let them know [facility] has denied patient and that they recommend SNF for him. Tasked [facility] to send neuro note from today to [facility] to see if they can accept [...] at the bedside 7. Instruct patient/ patient graphic art sales representative about use of safety devices 8. Include patient/ patient graphic art sales representative in decisions related to safety Outcome: Progressing Note: Evaluation of progress towards goal: Problem: Knowledge Deficit Goal: Patient/patient graphic art sales representative demonstrates understanding of disease process, treatment [...] at the bedside 7. Instruct patient/ patient graphic art sales representative about use of safety devices 8. Include patient/ patient graphic art sales representative in decisions related to safety Outcome: Progressing Note: Evaluation of progress towards goal: Problem: Knowledge Deficit Goal: Patient/patient graphic art sales representative demonstrates understanding of disease process, treatment [...] at the bedside 7. Instruct patient/ patient graphic art sales representative about use of safety devices 8. Include patient/ patient graphic art sales representative in decisions related to safety Outcome: Progressing Note: Evaluation of progress towards goal: patient is injury free at this time. Problem: Knowledge Deficit Goal: Patient/patient graphic art sales representative demonstrates understanding of disease process, treatment [...] of =/> 25 or indicated by [facility] Rehab Assessment Goal: Patient should be free from fall Description: Interventions: 1. [place] to environment 2. Hourly rounds addressing the [...] non-skid footwear 11. Teach patient and patient graphic art sales representative to maintain environment for safety and [...] (cane, walker) within reach 19. Request patient graphic art sales representative bring adaptive equipment/mobility aids from home or obtain and provide as needed 20. Consult pharmacy regarding effects of med's affecting mobility, cognition, and alternatives 21. Obtain physician order for PT if risk factors associated with mobility are present 22. Obtain physician order for OT as appropriate 23. Utilize diversional activities 24. Educate patient and patient graphic art sales representative how to maintain a safe environment during visitation times (notify nurse prior to leaving bedside) 25. Consider appropriateness of medical or non-medical technologist microbiology 26. Set up voiding schedule as appropriate (every 2 hours) Outcome: Progressing Note: Evaluation of progress towards goal: Patient is free from falls at this time. DISCHARGE PLANNING NOTE Referral sent to [facility] (P# [phone] ; F# [phone]) Images from the original note were not included. DISCHARGE PLANNING NOTE Discussed patient today during rounds. Patient's requested updates be sent to [facility]. Tasked [facility] to send. Leadership team aware as well as floor nurse. Barriers- acceptance, auth. Services Requested: Services Requested Patient expects to be discharged to:: home vs snf Patient Goals: Goals: Goals <enter goal here> (pt-stated) Evaluation of progress towards goal: TBD-pending PT/OT eval - NANCY PARRISH 07/18/24 10:30 AM Still awaiting response from [facility] if they can accept patient. Leadership [...] at the bedside 7. Instruct patient/ patient graphic art sales representative about use of safety devices 8. Include patient/ patient graphic art sales representative in decisions related to safety Outcome: [...] be free from fall Description: Interventions: 1. [place] to environment 2. Hourly rounds addressing the [...] non-skid footwear 11. Teach patient and patient graphic art sales representative to maintain environment for safety and [...] (cane, walker) within reach 19. Request patient graphic art sales representative bring adaptive equipment/mobility aids from home or obtain and provide as needed 20. Consult pharmacy regarding effects of med's affecting mobility, cognition, and alternatives 21. Obtain physician order for PT if risk factors associated with mobility are present 22. Obtain physician order for OT as appropriate 23. Utilize diversional activities 24. Educate patient and patient graphic art sales representative how to maintain a safe environment during visitation times (notify nurse prior to leaving bedside) 25. Consider appropriateness of medical or non-medical technologist microbiology 26. Set up voiding schedule as appropriate (every 2 hours) Outcome: Progressing Note: Evaluation of progress towards goal: Patient will remain free from falls. DISCHARGE PLANNING NOTE Referral sent to. [facility] (P# [phone] ; F# [phone], ) Physical Therapy Treatment Discharge Recommendations PT [...] Rothman Equipment: gait belt and chair alarm Telemetry/Horticultural Farm Manager: Yes Oxygen Used: room air Other: fall [...] Goal: Patient will perform stairs/curb with Modified [place] Dates: Start: 07/13/24 Expected End: 07/27/24 Description: [...] problems. Principal Problem: Dementia with behavioral disturbance ([facility]) Active Problems: Altered mental status Status post colostomy, follow-up exam ([facility]) Cosigned by Briana Nuno PT at 07/18/2024 [...] Rothman Equipment: gait belt and chair alarm Telemetry/Horticultural Farm Manager: Yes Oxygen Used: room air Other: fall [...] Date/Time User Outcome 07/17/24 1439 Yoanna Han-Mahoney, MARINATOR/L Progressing Problem: Grooming Dates: Start: 07/13/24 Disciplines: OT Goal: Patient will perform grooming Independently Dates: Start: 07/13/24 Expected End: 08/13/24 Description: Goal Description: Disciplines: OT Outcomes Date/Time User Outcome 07/17/24 1439 Yoanna Han-Mahoney, MARINATOR/L Progressing Problem: Standing Balance Dates: Start: 07/13/24 Disciplines: OT Goal: Improve balance to normal Dates: Start: 07/13/24 Expected End: 08/13/24 Description: Normal dynamic balance. Disciplines: OT Outcomes Date/Time User Outcome 07/17/24 1439 Yoanna Han-Mahoney, MARINATOR/L Progressing Problem: Toilet Transfers Dates: Start: 07/13/24 Disciplines: OT Goal: Patient will perform toilet transfers Independently Dates: Start: 07/13/24 Expected End: 08/13/24 Description: Goal Description: Disciplines: OT Outcomes Date/Time User Outcome 07/17/24 1439 Yoanna Han-Mahoney, MARINATOR/L Progressing Problem: Toileting Dates: Start: 07/13/24 Disciplines: [...] Date/Time User Outcome 07/17/24 1439 Yoanna Guille-Mahoney, MARINATOR/L Progressing Occupational Therapy Care Plan (Resolved) There are no resolved problems. Principal Problem: Dementia with behavioral disturbance ([facility]) Active Problems: Altered mental status Status post colostomy, follow-up exam ([facility]) Cosigned by MAYNOR Navarro/Jerome at 07/17/2024 3:03 [...] at the bedside 7. Instruct patient/ patient graphic art sales representative about use of safety devices 8. Include patient/ patient graphic art sales representative in decisions related to safety Outcome: Progressing Note: Evaluation of progress towards goal: Patient is injury free at this time. Problem: Knowledge Deficit Goal: Patient/patient graphic art sales representative demonstrates understanding of disease process, treatment [...] of =/> 25 or indicated by [facility] Assessment Goal: Patient should be free from fall Description: Interventions: 1. [place] to environment 2. Hourly rounds addressing the [...] non-skid footwear 11. Teach patient and patient graphic art sales representative to maintain environment for safety and [...] (cane, walker) within reach 19. Request patient graphic art sales representative bring adaptive equipment/mobility aids from home or obtain and provide as needed 20. Consult pharmacy regarding effects of med's affecting mobility, cognition, and alternatives 21. Obtain physician order for PT if risk factors associated with mobility are present 22. Obtain physician order for OT as appropriate 23. Utilize diversional activities 24. Educate patient and patient graphic art sales representative how to maintain a safe environment during visitation times (notify nurse prior to leaving bedside) 25. Consider appropriateness of medical or non-medical technologist microbiology 26. Set up voiding schedule as appropriate (every 2 hours) Outcome: Progressing Note: Evaluation of progress towards goal: Patient is free from falls at this time. DISCHARGE PLANNING NOTE fax referral to [facility] to [phone] shannan Alyssa Images from the original note were not included. DISCHARGE PLANNING NOTE Discussed patient today during rounds. Plan- IPR/TBI center. Barriers- acceptance, auth. This typewriter ribbon winder called both reviewing facilities and left for admissions to see if they can accept. Asked them to call this typewriter ribbon winder back. Floor nurse and leadership team aware. Services Requested: Services Requested Patient expects to be discharged to:: home vs snf Patient Goals: Goals: Goals <enter goal here> (pt-stated) Evaluation of progress towards goal: TBD-pending PT/OT lynnette - NANCY PARRISH 07/17/24 9:42 AM At this time we do not have an accepting TBI/IPR facility. This typewriter ribbon winder and flooring installer attempted to speak with patient's but she is not in the room. Also tried to call her but it went right to and her box is full. - NANCY PARRISH 07/17/24 1:43 PM [facility] called this typewriter ribbon winder since they don't respond in careport and they can not accept patient. This typewriter ribbon winder and flooring installer spoke with patient's and patient's sister that [...] at the bedside 7. Instruct patient/ patient graphic art sales representative about use of safety devices 8. Include patient/ patient graphic art sales representative in decisions related to safety Outcome: Progressing Note: Evaluation of progress towards goal: Patient remains injury and fall free. Safety precautions in place: call light within reach, bed in lowest position, personal belongings within reach, oriented to environment, and non-slip footwear on. Problem: Knowledge Deficit Goal: Patient/patient graphic art sales representative demonstrates understanding of disease process, treatment [...] be free from fall Description: Interventions: 1. [place] to environment 2. Hourly rounds addressing the [...] non-skid footwear 11. Teach patient and patient graphic art sales representative to maintain environment for safety and [...] (cane, walker) within reach 19. Request patient graphic art sales representative bring adaptive equipment/mobility aids from home or obtain and provide as needed 20. Consult pharmacy regarding effects of med's affecting mobility, cognition, and alternatives 21. Obtain physician order for PT if risk factors associated with mobility are present 22. Obtain physician order for OT as appropriate 23. Utilize diversional activities 24. Educate patient and patient graphic art sales representative how to maintain a safe environment during visitation times (notify nurse prior to leaving bedside) 25. Consider appropriateness of medical or non-medical technologist microbiology 26. Set up voiding schedule as appropriate [...] Plan Speech Therapy Care Plan (Active) Template: [facility] Speech Problem: Auditory Comprehension Dates: Start: 07/12/24 Disciplines: FOOD MOBILE DRIVER Goal: LTG: Patient will comprehend communication related to basic medical and social needs and utilize compensatory strategies to maintain safety in a functional living environment Dates: Start: 07/12/24 Expected End: 08/12/24 Disciplines: FOOD MOBILE DRIVER Goal: STG: Patient will answer complex yes/no questions with 90% accuracy with minimal cueing Dates: Start: 07/12/24 Expected End: 08/12/24 Disciplines: FOOD MOBILE DRIVER Outcomes Date/Time User Outcome 07/16/24 1520 MAGALI Castellanos Progressing Goal: STG: Patient will complete 1-3 step commands with 90% accuracy with minimal cueing Dates: Start: 07/12/24 Expected End: 08/12/24 Disciplines: FOOD MOBILE DRIVER Outcomes Date/Time User Outcome 07/16/24 1520 MAGALI Castellanos Progressing Goal: STG: Patient will complete simple, phrase level auditory comprehension tasks with 90% accuracy with minimal cueing Dates: Start: 07/12/24 Expected End: 08/12/24 Disciplines: FOOD MOBILE DRIVER Problem: Cognitive Linguistic Dates: Start: 07/12/24 Disciplines: FOOD MOBILE DRIVER Goal: LTG: Patient will display functional cognitive-linguistic skills to demonstrate appropriate communication and safety within daily activities in a functional living environment Dates: Start: 07/12/24 Expected End: 08/12/24 Disciplines: FOOD MOBILE DRIVER Goal: STG: Patient will demonstrate sustained attention by maintaining focus during a task for 10 minutes with minimal assistance Dates: Start: 07/12/24 Expected End: 08/12/24 Disciplines: FOOD MOBILE DRIVER Outcomes Date/Time User Outcome 07/16/24 1520 Conchita Devi [facility]-FOOD MOBILE DRIVER Progressing Goal: STG: Patient will be appropriately oriented to person, place, time and situation with 90% accuracy with minimal cueing Dates: Start: 07/12/24 Expected End: 08/12/24 Disciplines: FOOD MOBILE DRIVER Goal: STG: Patient will recall information discussed during therapy session via retelling/answering questions with 90% accuracy with minimal cueing Dates: Start: 07/12/24 Expected End: 08/12/24 Disciplines: FOOD MOBILE DRIVER Problem: High Level Language Dates: Start: 07/12/24 Disciplines: FOOD MOBILE DRIVER Goal: LTG: Patient will demonstrate use of self-awareness, goal setting, planning, initiation, self-monitoring and problem solving during daily activities to improve safety and awareness in a functional living environment Dates: Start: 07/12/24 Expected End: 08/12/24 Disciplines: FOOD MOBILE DRIVER Goal: STG: Patient will sequence 4-6 steps to a task (verbal, written, pictures) with 90% accuracy with minimal cueing Dates: Start: 07/12/24 Expected End: 08/12/24 Disciplines: FOOD MOBILE DRIVER Goal: STG: Patient will provide 3 appropriate solutions to problems of daily living with 90% accuracy with minimal cueing Dates: Start: 07/12/24 Expected End: 08/12/24 Disciplines: FOOD MOBILE DRIVER Goal: STG: Patient will demonstrate functional problem solving and safety awareness with 90% accuracy in daily living tasks in order to increase safe interactions with environment and decrease assistance from caregivers Dates: Start: 07/12/24 Expected End: 08/12/24 Disciplines: FOOD MOBILE DRIVER Problem: Verbal Expression Dates: Start: 07/12/24 Disciplines: FOOD MOBILE DRIVER Goal: LTG: Patient will utilize compensatory strategies to communicate wants and needs effectively to different conversational partners, maintain safety and participate socially in a functional living environment Dates: Start: 07/12/24 Expected End: 08/12/24 Disciplines: FOOD MOBILE DRIVER Goal: STG: Patient will respond to simple/complex open ended questions during activities of daily living with 90% accuracy with minimal cueing Dates: Start: 07/12/24 Expected End: 08/12/24 Disciplines: FOOD MOBILE DRIVER Goal: STG: Patient will maintain topic of conversation to decrease tangential speech with 90% accuracy with minimal cueing Dates: Start: 07/12/24 Expected End: 08/12/24 Disciplines: FOOD MOBILE DRIVER Outcomes Date/Time User Outcome 07/16/24 1520 MAGALI Castellanos Progressing Speech Therapy Care Plan (Resolved) There are no resolved problems. Principal Problem: Dementia with behavioral disturbance ([facility]) Active Problems: Altered mental status Status post colostomy, follow-up exam ([facility]) DISCHARGE PLANNING NOTE Resent referral in [facility] to [facility] P#[phone]; F#[phone] sent via secure fax to [phone] Problem: Safety Goal: Patient will be injury free during hospitalization Description: INTERVENTIONS: 1. Assess patient's risk for falls and implement fall prevention plan of care per policy 2. Provide and maintain a safe environment 3. Proper use of double Identifiers 4. Medication administration using the 5 rights 5. Hand hygiene 6. Specimens are labeled at the bedside 7. Instruct patient/ patient graphic art sales representative about use of safety devices 8. Include patient/ patient graphic art sales representative in decisions related to safety Outcome: Progressing Note: Evaluation of progress towards goal: pain will be adequally controlled to allow for rest and adl's Problem: Knowledge Deficit Goal: Patient/patient graphic art sales representative demonstrates understanding of disease process, treatment [...] of =/> 25 or indicated by [facility] Re[facility] Assessment Goal: Patient should be free from fall Description: Interventions: 1. [place] to environment 2. Hourly rounds addressing the [...] non-skid footwear 11. Teach patient and patient graphic art sales representative to maintain environment for safety and [...] (cane, walker) within reach 19. Request patient graphic art sales representative bring adaptive equipment/mobility aids from home or obtain and provide as needed 20. Consult pharmacy regarding effects of med's affecting mobility, cognition, and alternatives 21. Obtain physician order for PT if risk factors associated with mobility are present 22. Obtain physician order for OT as appropriate 23. Utilize diversional activities 24. Educate patient and patient graphic art sales representative how to maintain a safe environment during visitation times (notify nurse prior to leaving bedside) 25. Consider appropriateness of medical or non-medical technologist microbiology 26. Set up voiding schedule as appropriate (every 2 hours) Outcome: Progressing Note: Evaluation of progress towards goal: fall bundle DISCHARGE PLANNING NOTE Clinical updates sent to Referrals sent to [facility] (P# [phone] ; F# [phone]) and to [facility] and to [facility] DISCHARGE PLANNING NOTE Referral sent to. [facility] Via secure fax to [phone]. This is theor fax per phone call to facility. P#[phone]. Provider not in Care[facility]. DISCHARGE PLANNING NOTE Discharge plan- TBD waiting to hear from TBI/IPR who can accept out of the reviewing facilities. [facility] called this typewriter ribbon winder and will call his to discuss. If they are able to accept she would owe private pay for room and board and money is due up front. Updated leadership team and floor nurse. - NANCY PARRISH 07/16/24 8:50 AM Discussed patient today during rounds. Called [facility] and left a VM for admissions to see if they can accept. Awaiting responses from the other facilities to respond. Barriers- acceptance, auth. - NANCY PARRISH 07/16/24 10:58 AM Called admissions at [facility] and [facility] and left VM asking them if they can accept and to call this typewriter ribbon winder back. Left callback #. - NANCY PARRISH 07/16/24 11:05 AM Still awaiting responses from all reviewing IPR this time. Leadership aware. Called [facility] and spoke with admissions and they will review. Also called [facility] and left another VM. Both in [place] are still reviewing at this time. - [...] at the bedside 7. Instruct patient/ patient graphic art sales representative about use of safety devices 8. Include patient/ patient graphic art sales representative in decisions related to safety Outcome: Progressing Note: Evaluation of progress towards goal: Patient remains injury and fall free. Safety precautions in place: call light within reach, bed in lowest position, personal belongings within reach, oriented to environment, and non-slip footwear on. Problem: Knowledge Deficit Goal: Patient/patient graphic art sales representative demonstrates understanding of disease process, treatment [...] Collaborate with ancillary departments 14. Include patient/patient graphic art sales representative in decisions related to anxiety Outcome: Progressing Note: Evaluation of progress towards goal: Patient's anxiety appears to be at manageable level. Problem: Moderate - High Risk Fall Score Description: Gallegos Fall Score of =/> 25 or indicated by [facility] Re[facility] Assessment Goal: Patient should be free from fall Description: Interventions: 1. [place] to environment 2. Hourly rounds addressing the [...] non-skid footwear 11. Teach patient and patient graphic art sales representative to maintain environment for safety and [...] (cane, walker) within reach 19. Request patient graphic art sales representative bring adaptive equipment/mobility aids from home or obtain and provide as needed 20. Consult pharmacy regarding effects of med's affecting mobility, cognition, and alternatives 21. Obtain physician order for PT if risk factors associated with mobility are present 22. Obtain physician order for OT as appropriate 23. Utilize diversional activities 24. Educate patient and patient graphic art sales representative how to maintain a safe environment during visitation times (notify nurse prior to leaving bedside) 25. Consider appropriateness of medical or non-medical technologist microbiology 26. Set up voiding schedule as appropriate [...] at the bedside 7. Instruct patient/ patient graphic art sales representative about use of safety devices 8. Include patient/ patient graphic art sales representative in decisions related to safety Outcome: [...] of =/> 25 or indicated by [facility] Re[facility] Assessment Goal: Patient should be free from fall Description: Interventions: 1. [place] to environment 2. Hourly rounds addressing the [...] non-skid footwear 11. Teach patient and patient graphic art sales representative to maintain environment for safety and [...] (cane, walker) within reach 19. Request patient graphic art sales representative bring adaptive equipment/mobility aids from home or obtain and provide as needed 20. Consult pharmacy regarding effects of med's affecting mobility, cognition, and alternatives 21. Obtain physician order for PT if risk factors associated with mobility are present 22. Obtain physician order for OT as appropriate 23. Utilize diversional activities 24. Educate patient and patient graphic art sales representative how to maintain a safe environment during visitation times (notify nurse prior to leaving bedside) 25. Consider appropriateness of medical or non-medical technologist microbiology 26. Set up voiding schedule as appropriate [...] at the bedside 7. Instruct patient/ patient graphic art sales representative about use of safety devices 8. Include patient/ patient graphic art sales representative in decisions related to safety Outcome: Progressing Note: Evaluation of progress towards goal: Proper identifiers used with patient care and medication administration. Remains free of injury during shift Problem: Knowledge Deficit Goal: Patient/patient graphic art sales representative demonstrates understanding of disease process, treatment [...] Collaborate with ancillary departments 14. Include patient/patient graphic art sales representative in decisions related to anxiety Outcome: Progressing Note: Evaluation of progress towards goal: Patient verbalizes a tolerable anxiety level and remains free of signs and symptoms of anxiety. Will continue to explain treatment plan and monitor for changes in anxiety levels. Problem: Moderate - High Risk Fall Score Description: Gallegos Fall Score of =/> 25 or indicated by [facility] Assessment Goal: Patient should be free from fall Description: Interventions: 1. [place] to environment 2. Hourly rounds addressing the [...] non-skid footwear 11. Teach patient and patient graphic art sales representative to maintain environment for safety and [...] (cane, walker) within reach 19. Request patient graphic art sales representative bring adaptive equipment/mobility aids from home or obtain and provide as needed 20. Consult pharmacy regarding effects of med's affecting mobility, cognition, and alternatives 21. Obtain physician order for PT if risk factors associated with mobility are present 22. Obtain physician order for OT as appropriate 23. Utilize diversional activities 24. Educate patient and patient graphic art sales representative how to maintain a safe environment during visitation times (notify nurse prior to leaving bedside) 25. Consider appropriateness of medical or non-medical technologist microbiology 26. Set up voiding schedule as appropriate [...] at the bedside 7. Instruct patient/ patient graphic art sales representative about use of safety devices 8. Include patient/ patient graphic art sales representative in decisions related to safety Outcome: Progressing Note: Evaluation of progress towards goal: pain will be controlled to allow for rest and adl's Problem: Knowledge Deficit Goal: Patient/patient graphic art sales representative demonstrates understanding of disease process, treatment [...] Collaborate with ancillary departments 14. Include patient/patient graphic art sales representative in decisions related to anxiety Outcome: Progressing Note: Evaluation of progress towards goal: listen and reassuring Problem: Moderate - High Risk Fall Score Description: Gallegos Fall Score of =/> 25 or indicated by [facility] Re[facility] Assessment Goal: Patient should be free from fall Description: Interventions: 1. [place] to environment 2. Hourly rounds addressing the [...] non-skid footwear 11. Teach patient and patient graphic art sales representative to maintain environment for safety and [...] (cane, walker) within reach 19. Request patient graphic art sales representative bring adaptive equipment/mobility aids from home or obtain and provide as needed 20. Consult pharmacy regarding effects of med's affecting mobility, cognition, and alternatives 21. Obtain physician order for PT if risk factors associated with mobility are present 22. Obtain physician order for OT as appropriate 23. Utilize diversional activities 24. Educate patient and patient graphic art sales representative how to maintain a safe environment during visitation times (notify nurse prior to leaving bedside) 25. Consider appropriateness of medical or non-medical technologist microbiology 26. Set up voiding schedule as appropriate (every 2 hours) Outcome: Progressing Note: Evaluation of progress towards goal: fallbundle DISCHARGE PLANNING NOTE Referrals sent to [facility] (P# [phone] ; F# [phone]) and to [facility] and to [facility] and [facility] p#: [phone] f#: [phone] DISCHARGE PLANNING NOTE Follow-up Discharge Planning Progress Note Per RN during discharge transition rounds, barriers to discharge are: Accepting acute inpatient rehabilitation center. Discharge Plan: Post Commander followed up with patient, spouse and patient sister at bedside. Updated, [facility], not accepting, not in network with patient [...] Discussed lower levels of care such as [facility] and Home care. Patient spouse and sister verbalized understanding. Choices received. [facility] tasked to send referrals. Attempted to contact [...] at the bedside 7. Instruct patient/ patient graphic art sales representative about use of safety devices 8. Include patient/ patient graphic art sales representative in decisions related to safety Outcome: Progressing Note: Evaluation of progress towards goal: Proper identifiers used with patient care and medication administration. Remains free of injury during shift Problem: Knowledge Deficit Goal: Patient/patient graphic art sales representative demonstrates understanding of disease process, treatment [...] Collaborate with ancillary departments 14. Include patient/patient graphic art sales representative in decisions related to anxiety Outcome: [...] be free from fall Description: Interventions: 1. [place] to environment 2. Hourly rounds addressing the [...] non-skid footwear 11. Teach patient and patient graphic art sales representative to maintain environment for safety and [...] (cane, walker) within reach 19. Request patient graphic art sales representative bring adaptive equipment/mobility aids from home or obtain and provide as needed 20. Consult pharmacy regarding effects of med's affecting mobility, cognition, and alternatives 21. Obtain physician order for PT if risk factors associated with mobility are present 22. Obtain physician order for OT as appropriate 23. Utilize diversional activities 24. Educate patient and patient graphic art sales representative how to maintain a safe environment during visitation times (notify nurse prior to leaving bedside) 25. Consider appropriateness of medical or non-medical technologist microbiology 26. Set up voiding schedule as appropriate (every 2 hours) Outcome: Progressing Note: Evaluation of progress towards goal: Call light within reach. Remains free of fall or injury. Environment free of clutter. Problem: Safety - Medical Restraint Goal: Remains free of injury from restraints (Restraint for Interference with Flavor Maker) Description: INTERVENTIONS: 1. Determine that other, less [...] Free from restraint(s) (Restraint for Interference with Flavor Maker) Description: INTERVENTIONS: 1. ONCE/SHIFT or MINIMUM Q12H: [...] make referrals to some TBI facilities at [facility] and in [place] but at this time they are angry that [facility] did not accept patient. Post Commander will request SW follow up with them in the morning to obtain choices to continue developing a transition of care plan. DISCHARGE PLANNING NOTE Referral sent to [facility] P#[phone]; F#([phone]); [facility] of [facility] P# [phone] [calling report];/[facility] (P# [calling report]; F# ) DISCHARGE PLANNING NOTE Per RN during discharge transition rounds, barriers to discharge are: Telesitter, PMR re-eval, Seroquel dose adjustment. Discharge Plan: [facility] for TBI rehab. PT/OT recommended IPR. CN met with and sister Ewa. wants a referral sent [facility]. CN discussed discharge and making referrals to other TBI/ IPR rehabs in the state, and sister stated they are putting all their zak in [facility] being able to accept the patient. Print Binding And Finishing Worker will continue to follow for any discharge needs. - Lesia Caba RN 07/13/24 12:18 PM Addendum: [facility] is not in network with patients [employer] insurance. gave CN two more choices : [facility] and [facility] rehab. [facility] tasked to send referrals. and sister are calling insurance to ask about a one time contract to [facility]. Ethel , [facility] rep, stopped in to talk to and sister. - Lesia Caba RN 07/13/24 2:10 PM Addendum: Patient's and sister asked CN to listen and talk to insurance counselor regarding a one time approval for the IPR: [facility]. Proof Passer Xiomy with [employer] stated attending or managing physician needs to document patient's health status and progression, information on why the patient needs to go this specific facility for rehab, include diagnosis codes and services codes. Fax: Prior Auth Request to [phone] attn: Prior Auth Request at [employer]. CN sent pic chat to Dr. Nichol [...] PM DISCHARGE PLANNING NOTE Referral to [facility] (P# ; F# ) Occupational Therapy Evaluation [...] reflux disease) High cholesterol Perforated sigmoid colon ([facility]) Past Surgical History: Procedure Laterality Date ARM EXPLORATION WITH REPAIR LACERATED ULNAR ARTERY Left 11/24/2019 Performed by Skyler Bowen MD at [facility] 3YEARS AGO COLOSTOMY CLOSURE Therapy Plan Need [...] early mobility guidelines. Equipment: gait belt, telemetry Telemetry/Horticultural Farm Manager: Yes Oxygen Used: room air Other: fall [...] and pants. Patient was able to static cover inspector front of toilet with contact guard. Patient was unable to void due to trouble with processing, safety and judgement. Home Management - IADL Other: patient has trouble executing tasks. patient was able to ambulate into bathroom with contact guard. patient required min assist to doff underware and pants. Patient was able to static cover inspector front of toilet with contact guard. Patient was unable to void due to trouble with processing, safety and judgement. Hearing / Speech / Vision Hearing: Within Functional Limits Speech: Within Functional Limits Cognition Overall Cognitive Status: Exceptions to Within Functional Limits Arousal/Alertness: Delayed responses to stimuli Orientation Level: Oriented to person (patient was not able to recognize , liliat was not able to recall date [...] problems. Principal Problem: Dementia with behavioral disturbance ([facility]) Active Problems: Altered mental status Status post colostomy, follow-up exam ([facility]) Physical Therapy Evaluation Discharge [...] from admission 07/06 as a transfer from [facility] for neurological work up. Patient diagnosed with early onset dementia 2022, per spouse report after assisted and med changes cognitive status had improved and stabilized prior to fall in May 2024. 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 Pt discharged to inpatient treatment facility and returned to [facility] for scheduled MRI. 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 Principal Problem: Dementia with behavioral disturbance ([facility]) Active Problems: Altered mental status Status post colostomy, follow-up exam ([facility]) Problem: Safety Goal: Patient will be injury free during hospitalization Description: INTERVENTIONS: 1. Assess patient's risk for falls and implement fall prevention plan of care per policy 2. Provide and maintain a safe environment 3. Proper use of double Identifiers 4. Medication administration using the 5 rights 5. Hand hygiene 6. Specimens are labeled at the bedside 7. Instruct patient/ patient graphic art sales representative about use of safety devices 8. Include patient/ patient graphic art sales representative in decisions related to safety Outcome: Progressing Note: Evaluation of progress towards goal: Patient remains injury and fall free. Safety precautions in place: call light within reach, bed in lowest position, personal belongings within reach, oriented to environment, and non-slip footwear on. Problem: Knowledge Deficit Goal: Patient/patient graphic art sales representative demonstrates understanding of disease process, treatment [...] Collaborate with ancillary departments 14. Include patient/patient graphic art sales representative in decisions related to anxiety Outcome: Progressing Note: Evaluation of progress towards goal: Patient's has at bedside to help with spells of anxiety. Problem: Moderate - High Risk Fall Score Description: Gallegos Fall Score of =/> 25 or indicated by [facility] Re[facility] Assessment Goal: Patient should be free from fall Description: Interventions: 1. [place] to environment 2. Hourly rounds addressing the [...] non-skid footwear 11. Teach patient and patient graphic art sales representative to maintain environment for safety and [...] (cane, walker) within reach 19. Request patient graphic art sales representative bring adaptive equipment/mobility aids from home or obtain and provide as needed 20. Consult pharmacy regarding effects of med's affecting mobility, cognition, and alternatives 21. Obtain physician order for PT if risk factors associated with mobility are present 22. Obtain physician order for OT as appropriate 23. Utilize diversional activities 24. Educate patient and patient graphic art sales representative how to maintain a safe environment during visitation times (notify nurse prior to leaving bedside) 25. Consider appropriateness of medical or non-medical technologist microbiology 26. Set up voiding schedule as appropriate (every 2 hours) Outcome: Progressing Note: Evaluation of progress towards goal: Patient remains injury and fall free. Safety precautions in place: call light within reach, bed in lowest position, personal belongings within reach, oriented to environment, and non-slip footwear on. Problem: Safety - Medical Restraint Goal: Remains free of injury from restraints (Restraint for Interference with Flavor Maker) Description: INTERVENTIONS: 1. Determine that other, less [...] Free from restraint(s) (Restraint for Interference with Flavor Maker) Description: INTERVENTIONS: 1. ONCE/SHIFT or MINIMUM Q12H: [...] CN escalated this case to CN leadership. Print Binding And Finishing Worker will continue to follow for any discharge [...] at the bedside 7. Instruct patient/ patient graphic art sales representative about use of safety devices 8. Include patient/ patient graphic art sales representative in decisions related to safety Outcome: Progressing Note: Evaluation of progress towards goal: Patient remains injury free at present time. Safe environment provided and maintained. Medications administered using 5 rights. Problem: Knowledge Deficit Goal: Patient/patient graphic art sales representative demonstrates understanding of disease process, treatment [...] Collaborate with ancillary departments 14. Include patient/patient graphic art sales representative in decisions related to anxiety Outcome: Progressing Note: Evaluation of progress towards goal: Patient has family at bedside assisting with anxiety. Problem: Safety - Medical Restraint Goal: Remains free of injury from restraints (Restraint for Interference with Flavor Maker) Description: INTERVENTIONS: 1. Determine that other, less [...] Free from restraint(s) (Restraint for Interference with Flavor Maker) Description: INTERVENTIONS: 1. ONCE/SHIFT or MINIMUM Q12H: [...] continue to follow along. Prognosis Services: Skilled FOOD MOBILE DRIVER services to address the above deficits Prognosis/Potential: [...] Plan Speech Therapy Care Plan (Active) Template: [facility] Speech Problem: Auditory Comprehension Dates: Start: 07/12/24 Disciplines: FOOD MOBILE DRIVER Goal: LTG: Patient will comprehend communication related to basic medical and social needs and utilize compensatory strategies to maintain safety in a functional living environment Dates: Start: 07/12/24 Expected End: 08/12/24 Disciplines: FOOD MOBILE DRIVER Goal: STG: Patient will answer complex yes/no questions with 90% accuracy with minimal cueing Dates: Start: 07/12/24 Expected End: 08/12/24 Disciplines: FOOD MOBILE DRIVER Goal: STG: Patient will complete 1-3 step commands with 90% accuracy with minimal cueing Dates: Start: 07/12/24 Expected End: 08/12/24 Disciplines: FOOD MOBILE DRIVER Goal: STG: Patient will complete simple, phrase level auditory comprehension tasks with 90% accuracy with minimal cueing Dates: Start: 07/12/24 Expected End: 08/12/24 Disciplines: FOOD MOBILE DRIVER Problem: Cognitive Linguistic Dates: Start: 07/12/24 Disciplines: FOOD MOBILE DRIVER Goal: LTG: Patient will display functional cognitive-linguistic skills to demonstrate appropriate communication and safety within daily activities in a functional living environment Dates: Start: 07/12/24 Expected End: 08/12/24 Disciplines: FOOD MOBILE DRIVER Goal: STG: Patient will demonstrate sustained attention by maintaining focus during a task for 10 minutes with minimal assistance Dates: Start: 07/12/24 Expected End: 08/12/24 Disciplines: FOOD MOBILE DRIVER Goal: STG: Patient will be appropriately oriented to person, place, time and situation with 90% accuracy with minimal cueing Dates: Start: 07/12/24 Expected End: 08/12/24 Disciplines: FOOD MOBILE DRIVER Goal: STG: Patient will recall information discussed during therapy session via retelling/answering questions with 90% accuracy with minimal cueing Dates: Start: 07/12/24 Expected End: 08/12/24 Disciplines: FOOD MOBILE DRIVER Problem: High Level Language Dates: Start: 07/12/24 Disciplines: FOOD MOBILE DRIVER Goal: LTG: Patient will demonstrate use of self-awareness, goal setting, planning, initiation, self-monitoring and problem solving during daily activities to improve safety and awareness in a functional living environment Dates: Start: 07/12/24 Expected End: 08/12/24 Disciplines: FOOD MOBILE DRIVER Goal: STG: Patient will sequence 4-6 steps to a task (verbal, written, pictures) with 90% accuracy with minimal cueing Dates: Start: 07/12/24 Expected End: 08/12/24 Disciplines: FOOD MOBILE DRIVER Goal: STG: Patient will provide 3 appropriate solutions to problems of daily living with 90% accuracy with minimal cueing Dates: Start: 07/12/24 Expected End: 08/12/24 Disciplines: FOOD MOBILE DRIVER Goal: STG: Patient will demonstrate functional problem solving and safety awareness with 90% accuracy in daily living tasks in order to increase safe interactions with environment and decrease assistance from caregivers Dates: Start: 07/12/24 Expected End: 08/12/24 Disciplines: FOOD MOBILE DRIVER Problem: Verbal Expression Dates: Start: 07/12/24 Disciplines: FOOD MOBILE DRIVER Goal: LTG: Patient will utilize compensatory strategies to communicate wants and needs effectively to different conversational partners, maintain safety and participate socially in a functional living environment Dates: Start: 07/12/24 Expected End: 08/12/24 Disciplines: FOOD MOBILE DRIVER Goal: STG: Patient will respond to simple/complex open ended questions during activities of daily living with 90% accuracy with minimal cueing Dates: Start: 07/12/24 Expected End: 08/12/24 Disciplines: FOOD MOBILE DRIVER Goal: STG: Patient will maintain topic of conversation to decrease tangential speech with 90% accuracy with minimal cueing Dates: Start: 07/12/24 Expected End: 08/12/24 Disciplines: FOOD MOBILE DRIVER Speech Therapy Care Plan (Resolved) There are no resolved problems. Principal Problem: Dementia with behavioral disturbance ([facility]) Active Problems: Altered mental status Status post colostomy, follow-up exam ([facility]) Problem: Safety - Medical Restraint Goal: Remains free of injury from restraints (Restraint for Interference with Flavor Maker) Description: INTERVENTIONS: 1. Determine that other, less [...] Free from restraint(s) (Restraint for Interference with Flavor Maker) Description: INTERVENTIONS: 1. ONCE/SHIFT or MINIMUM Q12H: [...] elimination needs BEHAVIORAL RESTRAINTS PROVIDER ONE HOUR [id number] EVALUATION NOTE Noé Jeffery was evaluated on [...] at the bedside 7. Instruct patient/ patient graphic art sales representative about use of safety devices 8. Include patient/ patient graphic art sales representative in decisions related to safety Outcome: Progressing Note: Evaluation of progress towards goal: Patient remains injury and fall free. Safety precautions in place: call light within reach, bed in lowest position, personal belongings within reach, oriented to environment, and non-slip footwear on. Problem: Knowledge Deficit Goal: Patient/patient graphic art sales representative demonstrates understanding of disease process, treatment [...] Collaborate with ancillary departments 14. Include patient/patient graphic art sales representative in decisions related to anxiety Outcome: Progressing Note: Evaluation of progress towards goal: Patient has at bedside aiding in assisting with anxiety. Problem: Moderate - High Risk Fall Score Description: Gallegos Fall Score of =/> 25 or indicated by [facility] Assessment Goal: Patient should be free from fall Description: Interventions: 1. [place] to environment 2. Hourly rounds addressing the [...] non-skid footwear 11. Teach patient and patient graphic art sales representative to maintain environment for safety and [...] (cane, walker) within reach 19. Request patient graphic art sales representative bring adaptive equipment/mobility aids from home or obtain and provide as needed 20. Consult pharmacy regarding effects of med's affecting mobility, cognition, and alternatives 21. Obtain physician order for PT if risk factors associated with mobility are present 22. Obtain physician order for OT as appropriate 23. Utilize diversional activities 24. Educate patient and patient graphic art sales representative how to maintain a safe environment during visitation times (notify nurse prior to leaving bedside) 25. Consider appropriateness of medical or non-medical technologist microbiology 26. Set up voiding schedule as appropriate [...] unpredictable and confused. Discharge Plan: [facility] psych stated [facility] was sent a referral and they have declined. Waiting input from psych. Print Binding And Finishing Worker will continue to follow for any discharge needs. - Lesia Caba RN 07/11/24 12:06 PM Late entery: CN met with patient, Kari, and sister Ewa on Tuesday afternoon. and sister want the patient to go to a Traumatic Brain Injury rehab unit. CN began researching TBI Rehab units in the area, reported back to the and sister after finding TBI rehab units in [facility]. Sister asked for me to look in [facility]. and sister do not want any referrals send until they are able to meet with the neurologist again, sister wants to look into the TBI units in the [facility] herself before any referrals are sent. - Lesia Caba RN 07/12/24 8:11 AM Referral sent to [facility] to assess for admission to that center's inpatient psychiatric unit. After a clinical review and screening was completed [facility] assessed patient as inappropriate for treatment at that facility. Will alert care team. - NANCY Martines 07/11/24 10:33 AM DISCHARGE PLANNING NOTE Updates to [facility] [phone] Problem: Safety Goal: Patient will be injury free during hospitalization Description: INTERVENTIONS: 1. Assess patient's risk for falls and implement fall prevention plan of care per policy 2. Provide and maintain a safe environment 3. Proper use of double Identifiers 4. Medication administration using the 5 rights 5. Hand hygiene 6. Specimens are labeled at the bedside 7. Instruct patient/ patient graphic art sales representative about use of safety devices 8. Include patient/ patient graphic art sales representative in decisions related to safety Outcome: Progressing Note: Evaluation of progress towards goal: Patient remains injury free at present time. Safe environment provided and maintained. Medications administered using 5 rights. Problem: Knowledge Deficit Goal: Patient/patient graphic art sales representative demonstrates understanding of disease process, treatment [...] Collaborate with ancillary departments 14. Include patient/patient graphic art sales representative in decisions related to anxiety Outcome: Progressing Note: Evaluation of progress towards goal: Patient has at bedside assisting with anxiety. Problem: Moderate - High Risk Fall Score Description: Gallegos Fall Score of =/> 25 or indicated by [facility] Rehab Assessment Goal: Patient should be free from fall Description: Interventions: 1. [place] to environment 2. Hourly rounds addressing the [...] non-skid footwear 11. Teach patient and patient graphic art sales representative to maintain environment for safety and [...] (cane, walker) within reach 19. Request patient graphic art sales representative bring adaptive equipment/mobility aids from home or obtain and provide as needed 20. Consult pharmacy regarding effects of med's affecting mobility, cognition, and alternatives 21. Obtain physician order for PT if risk factors associated with mobility are present 22. Obtain physician order for OT as appropriate 23. Utilize diversional activities 24. Educate patient and patient graphic art sales representative how to maintain a safe environment during visitation times (notify nurse prior to leaving bedside) 25. Consider appropriateness of medical or non-medical technologist microbiology 26. Set up voiding schedule as appropriate [...] injury from restraints (Restraint for Interference with Flavor Maker) Description: INTERVENTIONS: 1. Determine that other, less [...] RN properly applies restraints per physician order 07/11/2024 0109 by MARCI Barrow Outcome: Completed Note: Evaluation of progress towards goal: 07/10/2024 2236 by MARCI Barrow Outcome: Progressing Note: Evaluation of progress towards goal: Q2H: Monitor safety, Vital signs, psychosocial status, signs of injury, skin integrity, circulation, neurovascular status in affected extremities, respiratory status, comfort, nutrition and hydration, hygiene, ROM, elimination needs Goal: Free from restraint(s) (Restraint for Interference with Flavor Maker) Description: INTERVENTIONS: 1. ONCE/SHIFT or MINIMUM Q12H: [...] related to safety; individualizes the safety outcome 07/11/2024 0109 by MARCI Barrow Outcome: Completed Note: Evaluation of progress towards goal: 07/10/20246 by MARCI Barrow Outcome: Progressing Note: Evaluation of progress towards goal: Q2H: Monitor safety, Vital signs, psychosocial status, signs of injury, skin integrity, circulation, neurovascular status in affected extremities, respiratory status, comfort, nutrition and hydration, hygiene, ROM, elimination needs BEHAVIORAL RESTRAINTS PROVIDER ONE HOUR [id number] EVALUATION NOTE Noé Jeffery was evaluated on [...] at the bedside 7. Instruct patient/ patient graphic art sales representative about use of safety devices 8. Include patient/ patient graphic art sales representative in decisions related to safety Outcome: [...] hygiene technique. 7. Identify and instruct patient/patient graphic art sales representative in use of appropriate isolation precautions for identified infection/symptoms. 8. Provide and discuss with patient/patient graphic art sales representative on educational MDRO sheet. 9. Encourage and monitor nutritional status daily and consult flight attendant/inflight manager if indicated. 10. Implement neutropenic guidelines as needed. Outcome: Progressing Note: Evaluation of progress towards goal: Patient remains free of any signs of infection. Signs and symptoms being monitor such as fevers, chills, warm/red areas. Problem: Knowledge Deficit Goal: Patient/patient graphic art sales representative demonstrates understanding of disease process, treatment [...] Collaborate with ancillary departments 14. Include patient/patient graphic art sales representative in decisions related to anxiety Outcome: Progressing Note: Evaluation of progress towards goal: Patient's anxiety is at manageable level. Problem: Safety - Medical Restraint Goal: Remains free of injury from restraints (Restraint for Interference with Flavor Maker) Description: INTERVENTIONS: 1. Determine that other, less [...] Free from restraint(s) (Restraint for Interference with Flavor Maker) Description: INTERVENTIONS: 1. ONCE/SHIFT or MINIMUM Q12H: [...] on patient's door 9. Provide patient/ patient graphic art sales representative with isolation education. Outcome: Progressing Note: Evaluation of progress towards goal: Discard single-use items. Clean reusable equipment. Wear gloves for direct and indirect patient care. Wash hands before and after care of patient. Problem: Moderate - High Risk Fall Score Description: Gallegos Fall Score of =/> 25 or indicated by [facility] Assessment Goal: Patient should be free from fall Description: Interventions: 1. [place] to environment 2. Hourly rounds addressing the [...] non-skid footwear 11. Teach patient and patient graphic art sales representative to maintain environment for safety and [...] (cane, walker) within reach 19. Request patient graphic art sales representative bring adaptive equipment/mobility aids from home or obtain and provide as needed 20. Consult pharmacy regarding effects of med's affecting mobility, cognition, and alternatives 21. Obtain physician order for PT if risk factors associated with mobility are present 22. Obtain physician order for OT as appropriate 23. Utilize diversional activities 24. Educate patient and patient graphic art sales representative how to maintain a safe environment during visitation times (notify nurse prior to leaving bedside) 25. Consider appropriateness of medical or non-medical technologist microbiology 26. Set up voiding schedule as appropriate [...] at the bedside 7. Instruct patient/ patient graphic art sales representative about use of safety devices 8. Include patient/ patient graphic art sales representative in decisions related to safety Outcome: [...] hygiene technique. 7. Identify and instruct patient/patient graphic art sales representative in use of appropriate isolation precautions for identified infection/symptoms. 8. Provide and discuss with patient/patient graphic art sales representative on educational MDRO sheet. 9. Encourage and monitor nutritional status daily and consult flight attendant/inflight manager if indicated. 10. Implement neutropenic guidelines as needed. Outcome: Progressing Note: Evaluation of progress towards goal: patient remains afebrile at this time Problem: Knowledge Deficit Goal: Patient/patient graphic art sales representative demonstrates understanding of disease process, treatment [...] Collaborate with ancillary departments 14. Include patient/patient graphic art sales representative in decisions related to anxiety Outcome: Progressing Note: Evaluation of progress towards goal: discussed w/ patient coping strategies & dietary changes that may aid in controlling stress & anxiety. Problem: Safety - Medical Restraint Goal: Remains free of injury from restraints (Restraint for Interference with Flavor Maker) Description: INTERVENTIONS: 1. Determine that other, less [...] Free from restraint(s) (Restraint for Interference with Flavor Maker) Description: INTERVENTIONS: 1. ONCE/SHIFT or MINIMUM Q12H: [...] on patient's door 9. Provide patient/ patient graphic art sales representative with isolation education. Outcome: Progressing Note: Evaluation of progress towards goal: patient remains afebrile at this time Problem: Moderate - High Risk Fall Score Description: Gallegos Fall Score of =/> 25 or indicated by [facility] Assessment Goal: Patient should be free from fall Description: Interventions: 1. [place] to environment 2. Hourly rounds addressing the [...] non-skid footwear 11. Teach patient and patient graphic art sales representative to maintain environment for safety and [...] (cane, walker) within reach 19. Request patient graphic art sales representative bring adaptive equipment/mobility aids from home or obtain and provide as needed 20. Consult pharmacy regarding effects of med's affecting mobility, cognition, and alternatives 21. Obtain physician order for PT if risk factors associated with mobility are present 22. Obtain physician order for OT as appropriate 23. Utilize diversional activities 24. Educate patient and patient graphic art sales representative how to maintain a safe environment during visitation times (notify nurse prior to leaving bedside) 25. Consider appropriateness of medical or non-medical technologist microbiology 26. Set up voiding schedule as appropriate [...] needed for restraints, re-consult psych. Discharge Plan: TBDChong CN discussed case with colin Solorio SW Print Binding And Finishing Worker will continue to follow for any discharge [...] at the bedside 7. Instruct patient/ patient graphic art sales representative about use of safety devices 8. Include patient/ patient graphic art sales representative in decisions related to safety Outcome: [...] hygiene technique. 7. Identify and instruct patient/patient graphic art sales representative in use of appropriate isolation precautions for identified infection/symptoms. 8. Provide and discuss with patient/patient graphic art sales representative on educational MDRO sheet. 9. Encourage and monitor nutritional status daily and consult flight attendant/inflight manager if indicated. 10. Implement neutropenic guidelines as needed. Outcome: Progressing Note: Evaluation of progress towards goal: Skin integrity remains in stable condition; remains w/o ss of infection, fever, pain, or increased discomfort. Problem: Knowledge Deficit Goal: Patient/patient graphic art sales representative demonstrates understanding of disease process, treatment [...] of 0 - 24 or indicated by [facility] Assessment Goal: Patient should be free from fall Description: Interventions: 1. [place] to environment 2. Hourly rounds addressing the [...] non-skid footwear 11. Teach patient and patient graphic art sales representative to maintain environment for safety and [...] Collaborate with ancillary departments 14. Include patient/patient graphic art sales representative in decisions related to anxiety Outcome: [...] on patient's door 9. Provide patient/ patient graphic art sales representative with isolation education. Outcome: Progressing Note: Evaluation of progress towards goal: Skin integrity remains in stable condition; remains w/o ss of infection, fever, pain, or increased discomfort. Problem: Moderate - High Risk Fall Score Description: Madeline Fall Score of =/> 25 or indicated by [facility] Assessment Goal: Patient should be free from fall Description: Interventions: 1. [place] to environment 2. Hourly rounds addressing the [...] non-skid footwear 11. Teach patient and patient graphic art sales representative to maintain environment for safety and [...] (cane, walker) within reach 19. Request patient graphic art sales representative bring adaptive equipment/mobility aids from home or obtain and provide as needed 20. Consult pharmacy regarding effects of med's affecting mobility, cognition, and alternatives 21. Obtain physician order for PT if risk factors associated with mobility are present 22. Obtain physician order for OT as appropriate 23. Utilize diversional activities 24. Educate patient and patient graphic art sales representative how to maintain a safe environment during visitation times (notify nurse prior to leaving bedside) 25. Consider appropriateness of medical or non-medical technologist microbiology 26. Set up voiding schedule as appropriate (every 2 hours) Outcome: Progressing Note: Evaluation of progress towards goal: Call light within reach. Remains free of fall or injury. Environment free of clutter. BEHAVIORAL RESTRAINTS PROVIDER ONE HOUR [id number] EVALUATION NOTE Noé Jeffery was evaluated on [...] at the bedside 7. Instruct patient/ patient graphic art sales representative about use of safety devices 8. Include patient/ patient graphic art sales representative in decisions related to safety Outcome: [...] hygiene technique. 7. Identify and instruct patient/patient graphic art sales representative in use of appropriate isolation precautions for identified infection/symptoms. 8. Provide and discuss with patient/patient graphic art sales representative on educational MDRO sheet. 9. Encourage and monitor nutritional status daily and consult flight attendant/inflight manager if indicated. 10. Implement neutropenic guidelines as needed. Outcome: Progressing Note: Evaluation of progress towards goal: patient remains afebrile at this time Problem: Knowledge Deficit Goal: Patient/patient graphic art sales representative demonstrates understanding of disease process, treatment [...] of 0 - 24 or indicated by [facility] Assessment Goal: Patient should be free from fall Description: Interventions: 1. [place] to environment 2. Hourly rounds addressing the [...] non-skid footwear 11. Teach patient and patient graphic art sales representative to maintain environment for safety and [...] Collaborate with ancillary departments 14. Include patient/patient graphic art sales representative in decisions related to anxiety Outcome: [...] injury from restraints (Restraint for Interference with Flavor Maker) Description: INTERVENTIONS: 1. Determine that other, less [...] Free from restraint(s) (Restraint for Interference with Flavor Maker) Description: INTERVENTIONS: 1. ONCE/SHIFT or MINIMUM Q12H: [...] on patient's door 9. Provide patient/ patient graphic art sales representative with isolation education. Outcome: Progressing Note: Evaluation of progress towards goal: patient remains afebrile at this time DISCHARGE PLANNING NOTE [facility] (P# [phone] ; F# [phone]) via Pyreg Query Response Note CDI QUERY TEXT: Altered [...] . Thank you, Ethel Bueno RN, CDI [email or web address] The patient's Clinical Indicators include: As above CDI RESPONSE TEXT: Patient has progression of dementia causing agitation, no evidence of metabolic or toxic encephalopathy. Query created by: Ethel Bueno on 07/09/2024 5:42 AM Electronically signed by: Lonnie Baker MD 07/09/2024 3:22 PM DISCHARGE PLANNING NOTE Referral sent to [facility] (P# [phone] ; F# [phone]) via efax DISCHARGE PLANNING NOTE Per RN during discharge transition rounds, barriers to discharge are: Needs MRI with sedation, LP with sedation, non-violent restraints, confused, restless, and disoriented, psych needs to see Discharge Plan: TBD. Planning placement or inpatient behavioral unit. CN does not believe it is safe for patient to return home. Psych SW following. Print Binding And Finishing Worker will continue to follow for any discharge [...] at the bedside 7. Instruct patient/ patient graphic art sales representative about use of safety devices 8. Include patient/ patient graphic art sales representative in decisions related to safety Outcome: [...] hygiene technique. 7. Identify and instruct patient/patient graphic art sales representative in use of appropriate isolation precautions for identified infection/symptoms. 8. Provide and discuss with patient/patient graphic art sales representative on educational MDRO sheet. 9. Encourage and monitor nutritional status daily and consult flight attendant/inflight manager if indicated. 10. Implement neutropenic guidelines as needed. Outcome: Progressing Note: Evaluation of progress towards goal: monitor s/s of infection Problem: Knowledge Deficit Goal: Patient/patient graphic art sales representative demonstrates understanding of disease process, treatment [...] of 0 - 24 or indicated by [facility] Assessment Goal: Patient should be free from fall Description: Interventions: 1. [place] to environment 2. Hourly rounds addressing the [...] non-skid footwear 11. Teach patient and patient graphic art sales representative to maintain environment for safety and [...] Collaborate with ancillary departments 14. Include patient/patient graphic art sales representative in decisions related to anxiety Outcome: [...] injury from restraints (Restraint for Interference with Flavor Maker) Description: INTERVENTIONS: 1. Determine that other, less [...] Free from restraint(s) (Restraint for Interference with Flavor Maker) Description: INTERVENTIONS: 1. ONCE/SHIFT or MINIMUM Q12H: [...] hourly rounding BEHAVIORAL RESTRAINTS PROVIDER ONE HOUR [id number] EVALUATION NOTE Noé Prabha Hahnza was evaluated on 07/08/2024 at 1906. Called [...] [facility] NIGHT BEHAVIORAL RESTRAINTS PROVIDER ONE HOUR [id number] EVALUATION NOTE Noé Jeffery was evaluated on [...] at the bedside 7. Instruct patient/ patient graphic art sales representative about use of safety devices 8. Include patient/ patient graphic art sales representative in decisions related to safety Outcome: [...] hygiene technique. 7. Identify and instruct patient/patient graphic art sales representative in use of appropriate isolation precautions for identified infection/symptoms. 8. Provide and discuss with patient/patient graphic art sales representative on educational MDRO sheet. 9. Encourage and monitor nutritional status daily and consult flight attendant/inflight manager if indicated. 10. Implement neutropenic guidelines as needed. Outcome: Progressing Note: Evaluation of progress towards goal: Patient has no infection at this time. Problem: Knowledge Deficit Goal: Patient/patient graphic art sales representative demonstrates understanding of disease process, treatment [...] of 0 - 24 or indicated by [facility] Assessment Goal: Patient should be free from fall Description: Interventions: 1. [place] to environment 2. Hourly rounds addressing the [...] non-skid footwear 11. Teach patient and patient graphic art sales representative to maintain environment for safety and [...] Collaborate with ancillary departments 14. Include patient/patient graphic art sales representative in decisions related to anxiety Outcome: [...] at the bedside 7. Instruct patient/ patient graphic art sales representative about use of safety devices 8. Include patient/ patient graphic art sales representative in decisions related to safety Outcome: [...] hygiene technique. 7. Identify and instruct patient/patient graphic art sales representative in use of appropriate isolation precautions for identified infection/symptoms. 8. Provide and discuss with patient/patient graphic art sales representative on educational MDRO sheet. 9. Encourage and monitor nutritional status daily and consult flight attendant/inflight manager if indicated. 10. Implement neutropenic guidelines as needed. Outcome: Progressing Note: Evaluation of progress towards goal: monitor s/s of infection, monitor labs, standard precautions Problem: Knowledge Deficit Goal: Patient/patient graphic art sales representative demonstrates understanding of disease process, treatment [...] of 0 - 24 or indicated by [facility] Assessment Goal: Patient should be free from fall Description: Interventions: 1. [place] to environment 2. Hourly rounds addressing the [...] non-skid footwear 11. Teach patient and patient graphic art sales representative to maintain environment for safety and [...] at the bedside 7. Instruct patient/ patient graphic art sales representative about use of safety devices 8. Include patient/ patient graphic art sales representative in decisions related to safety Outcome: [...] hygiene technique. 7. Identify and instruct patient/patient graphic art sales representative in use of appropriate isolation precautions for identified infection/symptoms. 8. Provide and discuss with patient/patient graphic art sales representative on educational MDRO sheet. 9. Encourage and monitor nutritional status daily and consult flight attendant/inflight manager if indicated. 10. Implement neutropenic guidelines as needed. Outcome: Progressing Note: Evaluation of progress towards goal: Patient remains free of any signs of infection. Signs and symptoms being monitor such as fevers, chills, warm/red areas. Problem: Knowledge Deficit Goal: Patient/patient graphic art sales representative demonstrates understanding of disease process, treatment [...] of 0 - 24 or indicated by [facility] Assessment Goal: Patient should be free from fall Description: Interventions: 1. [place] to environment 2. Hourly rounds addressing the [...] non-skid footwear 11. Teach patient and patient graphic art sales representative to maintain environment for safety and [...] Description: INTERVENTIONS: 1. Encourage patient or legal graphic art sales representative to report early pain and ask [...] per policy 9. Teach patient or legal graphic art sales representative interventions for comforting Outcome: Completed Note: Evaluation of progress towards goal: Patient has no complaints of pain. Reassessed per policy. An attempt was made to interview the patient today in the presence of his . The patient refused and asked the typewriter ribbon winder to leave stating that he does not want a psychiatric evaluation. Psychiatry will sign off. Images from the original note were not included. DISCHARGE PLANNING NOTE Post Commander met with patient, introduced self, and explained role. Patient educated on safe discharge plan. Pt admitted 07/06/2024 with Dementia with behavioral disturbance ([facility]) [F03.918] At risk for long QT syndrome [Z91.89] Altered mental status [R41.82] per chart review. Consults: Neurology and Psychiatry Discharge Barriers per Daily Transition Rounds and chart review: Psych and neuro to see, will need EEG, MRI, CT brain. Past Medical History: Diagnosis Date GERD (gastroesophageal reflux disease) High cholesterol Perforated sigmoid colon ([facility]) Prior to admission patient was living with spouse/significant other and self care. Medical equipment patient used prior to admission includes: CPAP. Patient spouse denies need for transportation/ food/ prescription medication assistance resources. PCP: JAE LOPEZ MD Pharmacy:[facility] PCP and pharmacy confirmed with patient. CN [...] 07/06/24 11:02 AM documented in this encounter [facility] 07-22-2024 Nurse Note AVS discussed with patient and family, no further questions about discharge. No further needs identified. Patient taken downstairs by wheelchair to be driven home by . Patient still off unit at this time 11:58 s/p sedated MRI & LP procedure. Per neurologist, Dr Johnson, patient needs to remain flat 1-2hrs & may have regular diet. Post Commander awaiting patient return to unit & per report 1:1 sitter remains at patient bedside. documented in this encounter [facility] 07-22-2024 Plan of care note Problem: [...] at the bedside 7. Instruct patient/ patient graphic art sales representative about use of safety devices 8. Include patient/ patient graphic art sales representative in decisions related to safety Outcome: Progressing Note: Evaluation of progress towards goal: pt remains free from injury. Family at bedside. Problem: Knowledge Deficit Goal: Patient/patient graphic art sales representative demonstrates understanding of disease process, treatment [...] of =/> 25 or indicated by [facility] Assessment Goal: Patient should be free from fall Description: Interventions: 1. [place] to environment 2. Hourly rounds addressing the [...] non-skid footwear 11. Teach patient and patient graphic art sales representative to maintain environment for safety and [...] (cane, walker) within reach 19. Request patient graphic art sales representative bring adaptive equipment/mobility aids from home or obtain and provide as needed 20. Consult pharmacy regarding effects of med's affecting mobility, cognition, and alternatives 21. Obtain physician order for PT if risk factors associated with mobility are present 22. Obtain physician order for OT as appropriate 23. Utilize diversional activities 24. Educate patient and patient graphic art sales representative how to maintain a safe environment during visitation times (notify nurse prior to leaving bedside) 25. Consider appropriateness of medical or non-medical technologist microbiology 26. Set up voiding schedule as appropriate (every 2 hours) Outcome: Progressing Note: Evaluation of progress towards goal: pt remains free from falls. Fall precautions in place and family at bedside Problem: Moderate - High Risk Fall Score Description: Gallegos Fall Score of =/> 25 or indicated by [facility] Assessment Goal: Patient should be free from fall Description: Interventions: 1. [place] to environment 2. Hourly rounds addressing the [...] non-skid footwear 11. Teach patient and patient graphic art sales representative to maintain environment for safety and [...] (cane, walker) within reach 19. Request patient graphic art sales representative bring adaptive equipment/mobility aids from home or obtain and provide as needed 20. Consult pharmacy regarding effects of med's affecting mobility, cognition, and alternatives 21. Obtain physician order for PT if risk factors associated with mobility are present 22. Obtain physician order for OT as appropriate 23. Utilize diversional activities 24. Educate patient and patient graphic art sales representative how to maintain a safe environment during visitation times (notify nurse prior to leaving bedside) 25. Consider appropriateness of medical or non-medical technologist microbiology 26. Set up voiding schedule as appropriate (every 2 hours) Outcome: Progressing Note: Evaluation of progress towards goal: pt remains free from falls. Fall precautions in place and family at bedside [facility] 07-21-2024 Progress note Formatting of t his note might be different from the original. DISCHARGE PLANNING NOTE Post Commander spoke with RN KAY Graf and with supervisor in charge Mylena about current situation regarding appeal decision and DC plan to home with outpatient services. Post Commander placed a call to the who was in the patient's room due to the questions she had re: the discharge plan. Post Commander spoke with , Kari on 07/21/24 at 1325. Post Commander reviewed Eduardo's DC Appeal Determination Notification with the who confirmed that she had received a voicemail from [facility] this morning. Post Commander explained that Eduardo had agreed with the termination of hospital services after having reviewed the uploaded clinical documents from this hospitalization that typewriter ribbon winder had sent to them yesterday. expressed verbal understanding to typewriter ribbon winder of Eduardo's decision. Post Commander explained that patient's financial liability would begin at Noon on 07/22/24 and offered our care navigation assistance with obtaining transportation to home. had questions about why referrals were not made to care home facilities that family had now chosen, [facility] and [facility] [place] ([facility]). Post Commander explained to the that the patient did not meet the clinical criteria this time for a care home/rehab facility level of care and reminded her that a discussion about this took place this past week/yesterday with the treatment team. explained that she never agreed to take her home and her and her family now want SNF placement. Post Commander continued to explain to the process of [...] prior to bringing him to the hospital. Post Commander offered supportive listening to the and also offered for her to connect with patient's PCP, Dr. Lopez after she gets her home for resources. Post Commander also discussed the outpatient TBI clinic appointment that was being discussed yesterday and that information would be included on patient's after visit summary. Post Commander explained that if was not going to make arrangements to take patient home by noon on 07/22, that patient's financial responsibility of $2640.00 per day would begin. expressed verbal understanding to typewriter ribbon winder. Post Commander emailed financial responsibility form with instruction to supervisor in chargeCm (and cce'd today's RN Lesia Felton for awareness) for bedside delivery today. is aware of pending paper copy delivery of this form. - NELLI GLEZ COOKER CASING CARE NAVIGATION 07/21/24 2:11 PM [facility] 07-21-2024 Progress note Formatting of t his note might be different from the original. DISCHARGE PLANNING NOTE We have received DC Appeal Determination Notification from BILL/Eduardo and BILL/Eduardo has agreed with the termination of services. Beneficiary liability begins 07.22.2024 by Irma. Beneficiary and/or beneficiary graphic art sales representative were to be notified of determination via phone call. oJanta determination notification rec'd at 1032 and letter rec'd [phone] were received by typewriter ribbon winder via fax. Post Commander uploaded documents to document list. Documentation updated. Post Commander received forwarded voice mail 07/21/24 at 1032 from Eduardo Duran's Immediate Advocacy Department , who had left message on Care Navigation Department voice mail at 0396 on 07/20/24, stating he was representing patient's family who had called Eduardo asking 1) why denial reason wasn't given re: transfer to another care facility and 2) if the preferred facility by family was able to accept. Reference Case # given from Nica [id number]. Post Commander attempted to call Nica back on 07/21/24 at 1214 and typewriter ribbon winder rec'd auto message from Eduardo which stated only live phone calls with Eduardo are Tuesday thru Tuesday. Post Commander left voicemail citing reference case # [id number]. Post Commander stated reason for return phone call and requested call back from Nica. - NELLI GLEZ COOKER CASING CARE NAVIGATION 07/21/24 12:37 PM [facility] 07-21-2024 Plan of care note Problem: Safety [...] at the bedside 7. Instruct patient/ patient graphic art sales representative about use of safety devices 8. Include patient/ patient graphic art sales representative in decisions related to safety Outcome: Progressing Note: Evaluation of progress towards goal: Pain will be adequately controlled to allow for rest and adl's Problem: Knowledge Deficit Goal: Patient/patient graphic art sales representative demonstrates understanding of disease process, treatment [...] of =/> 25 or indicated by [facility] Rehab Assessment Goal: Patient should be free from fall Description: Interventions: 1. [place] to environment 2. Hourly rounds addressing the [...] non-skid footwear 11. Teach patient and patient graphic art sales representative to maintain environment for safety and [...] (cane, walker) within reach 19. Request patient graphic art sales representative bring adaptive equipment/mobility aids from home or obtain and provide as needed 20. Consult pharmacy regarding effects of med's affecting mobility, cognition, and alternatives 21. Obtain physician order for PT if risk factors associated with mobility are present 22. Obtain physician order for OT as appropriate 23. Utilize diversional activities 24. Educate patient and patient graphic art sales representative how to maintain a safe environment during visitation times (notify nurse prior to leaving bedside) 25. Consider appropriateness of medical or non-medical technologist microbiology 26. Set up voiding schedule as appropriate (every 2 hours) Outcome: Progressing Note: Evaluation of progress towards goal: fall bundle [employer] 07-21-2024 History of Present illness Narrative Images from the original note were not included. 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 Colloid cyst-evaluated by Neurosurgery no [...] and corrected by editing. Electronically signed by: LUIZ SHIPLEY MD, VLADIMIR, FACP 07/21/2024 1:54 PM Preferred contact method: #1. Epic chat #2. PPH team pager Available from 7 am to 7 pm Images from the original note were not included. [facility] Neurology General Neurology Consultation Progress Note Consult Neurology Service: [phone] Primary Team: [facility] Hospitalist Chief Concern and Reason for Consultation: cognitive decline Interval History: Noé Jeffery is a 59 y.o. year old male for whom Neurology was consulted for chief concern of cognitive decline. He has history of hyperlipidemia, complex sleep apnea, GERD, type 2 diabetes, major neurocognitive disorder with biomarkers confirmed early onset Alzheimer's disease (established at [facility] in October 2022), and epilepsy [...] and proprioception throughout. Cerebellar: Able to do [id number]-[id number] bilaterally; normal coordination Gait and station: Deferred. [...] confirmed early onset Alzheimer's disease (established at [facility] in October 2022), and epilepsy [...] to Tuesday 12-1:00 p.m. Primary Neurology service: [phone] Consult neurology service: [phone] Resident Stroke Service: [phone] If the patient belongs to the Stroke [...] from the original note were not included. [facility] H[facility] PROGRESS NOTE 07/19/2024 Patient Name: Noé Jeffery : 1965 Code status: Problem List: Principal Problem: Dementia with behavioral disturbance ([facility]) Active Problems: Altered mental status Status post colostomy, follow-up exam ([facility]) Consulting Providers Provider Service Specialty Mina Franks MD Psychiatry Psychiatry Jessica Johnson MD -- Neurology Sonya Astudillo MD Z Physical Medicine and Rehabilitation Physical Medicine & Rehabilitation Chief complaint-behavioral issues 59-year-old male patient with Confirmed early onset Alzheimer's disease established in [facility] October 2022, patient had fall June 09, [...] per family request. I also spoke with [facility] neurology 's office. They said that they are independent office and they do not have resources for transfer or admission to [facility]. They also will not be [...] and corrected by editing. Electronically signed by: LUIZ SHIPLEY MD, VLADIMIR, FACP 07/19/2024 1:40 PM Preferred contact method: #1. Epic chat #2. PPH team pager Available from 7 am to 7 pm Images from the original note were not included. [facility] PROGRESS NOTE 07/18/2024 Patient Name: Noé Jeffery : 1965 Code status: Problem List: Principal Problem: Dementia with behavioral disturbance ([facility]) Active Problems: Altered mental status Status post colostomy, follow-up exam ([facility]) Consulting Providers Provider Service Specialty Mina Franks MD Psychiatry Psychiatry Jessica Johnson MD -- Neurology Sonya Astudillo MD Z Physical Medicine and Rehabilitation Physical Medicine & Rehabilitation Chief complaint-behavioral issues 59-year-old male patient with Confirmed early onset Alzheimer's disease established in [facility] October 2022, patient had fall June 09, [...] and corrected by editing. Electronically signed by: LUIZ SHIPLEY MD, VLADIMIR, FACP 07/18/2024 3:39 PM Preferred contact method: #1. Epic chat #2. PPH team pager Available from 7 am to 7 pm Attending Physician: Luiz Shipley MD Date of Admission: 07/06/2024 Date of service 07/17/2024 Subjective: CC Seen examined today. Patient working with therapies. Going to [facility]. No new weakness. Objective: Last Filed Vitals: [...] with behavioral disturbance (CMS-HCC) Altered mental status Status post colostomy, follow-up exam ([facility]) PLAN Cont PT/OT - would recommend inpatient rehabilitation DVT prophylaxis - heparin 5000 units t.i.d. Agitation Seroquel, Depakote Pain management - Tylenol p.r.n. Dementia Aricept Monitor bowel/bladder/skin Per your medical management PQRS measures: I attest and have documented/reviewed all medications in patients chart Electronically signed by Silvestre PURCELL 07/17/2024 NUTRITION ADULT FOLLOW UP NUTRITION ASSESSMENT: Patient History: Brief Clinical Summary: Pt transferred and direct admitted to [facility] as a transfer from [facility] for neurological evaluation 2/2 aggressive behavior and hostility. PMH: early-onset dementia, T2DM, GERD, and perforated colon. Biochemical Data, Medical Tests, and Procedures: 07/16, restraints: pt now out of restraints with production administrator at side Labs: Results from last 3 [...] (H) 05/10/2016 Lab Results Component Value Date [id number] 07/08/2024 Lab Results Component Value Date [...] capsule 500 mg 500 mg oral Q12H [facility] Nichol Heath MD 500 mg at 07/17/24 0918 donepeziL (ARICEPT) tablet 5 mg 5 mg oral Nightly Nichol Heath MD 5 mg at 07/16/24 2137 doxycycline (VIBRAMYCIN) capsule 100 mg 100 mg oral BID Luiz Shipley MD 100 mg at 07/17/24 1104 DULoxetine (CYMBALTA) DR capsule 20 mg 20 mg oral Daily Nichol Heath MD 20 mg at 07/17/24 0919 glucagon HCL injection 1 mg 1 mg intramuscular PRN Nichol Heath MD heparin (porcine) injection 5,000 Units 5,000 Units subcutaneous Q8H [facility] Nichol Heath MD 5,000 Units at 07/17/24 [...] Daily Nichol Heath MD 50 mg at 07/17/24 09 sennosides-docusate sodium (SENOKOT-S) 8.6-50 mg 1 tablet [...] Skin (per nursing flow sheets): Skin Color: [place]; Pale (07/17/24904) Skin Temp: Warm; Dry (07/17/24904) [...] oz) Admit Weight: 83.9 kg (unknown, 06/24) [place] Body Weight: Unknown as no wt on file Weight Changes: No wt since admission 2/2 pt aggression Admit Body Mass Index: Same as current BMI Current Body Mass Index: Body mass index is 30.78 kg/m . Comparative Standards: Estimated Energy Needs: 7384-8557 kcals daily. Method and weight used: 25-32 kcal/kg IBW Estimated Protein Needs: 74-124 grams daily. Method and weight used: 1.2-2g protein/kg IBW Estimated Fluid Needs: 0646-5794 ml daily. Method weight used: 1 ml/kcal Comments: floor needs Malnutrition Status: Malnutrition Present: No NUTRITION DIAGNOSIS: Intake Diagnosis: Predicted suboptimal nutrient intake (NI 5.11.1)--ongoing NUTRITION INTERVENTIONS: Meals and Snacks: Continue per FOOD MOBILE DRIVER and medical team recommendations Supplements: Will add [...] from the original note were not included. [facility] PROGRESS NOTE 07/17/2024 Patient Name: Noé Jeffery : 1965 Code status: Problem List: Principal Problem: Dementia with behavioral disturbance ([facility]) Active Problems: Altered mental status Status post colostomy, follow-up exam ([facility]) Consulting Providers Provider Service Specialty Mina Franks MD Psychiatry Psychiatry Jessica Johnson MD -- Neurology Sonya Astudillo MD Z Physical Medicine and Rehabilitation Physical Medicine & Rehabilitation Chief complaint-behavioral issues 59-year-old male patient with Confirmed early onset Alzheimer's disease established in [facility] October 2022, patient had fall June 09, [...] and corrected by editing. Electronically signed by: LUIZ SHIPLEY MD, VLADIMIR, FACP 07/17/2024 4:24 PM Preferred contact method: #1. Epic chat #2. PPH team pager Available from 7 am to 7 pm Images from the original note were not included. [facility] 07/16/2024 Patient Name: Noé Jeffery : 1965 Problem List: Principal Problem: Dementia with behavioral disturbance ([facility]) Active Problems: Altered mental status Status post colostomy, follow-up exam ([facility]) Assessment Rapid onset Dementia with behavioral disturbances [...] Spinal Fluid culture includes gram stain, CSF [[id number]] Collected: 07/10/24 0939 Specimen: Cerebrospinal Fluid Updated: 07/15/24 0656 Gram Stain Result WHITE BLOOD CELLS PRESENT NO ORGANISMS SEEN ON CONCENTRATED SMEAR Culture NO GROWTH 5 DAYS Physical Medicine and Rehabilitation Daily Progress Note Today's Date and Time: 07/16/2024, 9:31 AM Subjective/Chief complaint: Dementia with behavioral disturbance ([facility]) Principal Problem: Dementia with behavioral disturbance ([facility]) Active Problems: Altered mental status Status post colostomy, follow-up exam ([facility]) SUBJECTIVE Resting in bed, no distress, afebrile [...] left ulnar artery Dementia with behavioral disturbance ([facility]) Altered mental status Status post colostomy, follow-up exam ([facility]) Recommendations/Plan: Continue PT, OT and speech therapy Contact guard assist with gait and transfers Will need 24 hour supervision Fall precautions, status post fall Family education Melatonin to regulate sleep cycle Awaiting on placement Will follow up with you for rehab needs Sonya Astudillo MD Images from the original note were not included. [facility] 07/15/2024 Patient Name: Noé Jeffery : 1965 Problem List: Principal Problem: Dementia with behavioral disturbance ([facility]) Active Problems: Altered mental status Status post colostomy, follow-up exam ([facility]) Assessment Rapid onset Dementia with behavioral disturbances [...] Spinal Fluid culture includes gram stain, CSF [[id number]] Collected: 07/10/24 0939 Specimen: Cerebrospinal Fluid Updated: 07/15/24 0656 Gram Stain Result WHITE BLOOD CELLS PRESENT NO ORGANISMS SEEN ON CONCENTRATED SMEAR Culture NO GROWTH 5 DAYS Physical Medicine and Rehabilitation Daily Progress Note Today's Date and Time: 07/15/2024, 8:01 AM Subjective/Chief complaint: Dementia with behavioral disturbance ([facility]) Principal Problem: Dementia with behavioral disturbance ([facility]) Active Problems: Altered mental status Status post colostomy, follow-up exam ([facility]) SUBJECTIVE Resting in bed, [...] left ulnar artery Dementia with behavioral disturbance ([facility]) Altered mental status Status post colostomy, follow-up exam ([facility]) Recommendations/Plan: Continue PT, OT and speech therapy Contact guard assist with gait and transfers Will need 24 hour supervision Fall precautions, status post fall Family education Melatonin to regulate sleep cycle Awaiting on placement Will follow up with you for rehab needs Sonya Astudillo MD Images from the original note were not included. [facility] Hospital[facility] 2024 Patient Name: Noé Jeffery : 1965 Problem List: Principal Problem: Dementia with behavioral disturbance ([facility]) Active Problems: Altered mental status Status post colostomy, follow-up exam ([facility]) Assessment Rapid onset Dementia with behavioral disturbances [...] Spinal Fluid culture includes gram stain, CSF [[id number]] Collected: 07/10/24 09 Specimen: Cerebrospinal Fluid Updated: 07/14/24 09 Gram Stain Result WHITE BLOOD CELLS PRESENT NO ORGANISMS SEEN ON CONCENTRATED SMEAR Culture NO GROWTH 4 DAYS Physical Medicine and Rehabilitation Daily Progress Note Today's Date and Time: 2024, 8:23 AM Subjective/Chief complaint: Dementia with behavioral disturbance ([facility]) Principal Problem: Dementia with behavioral disturbance ([facility]) Active Problems: Altered mental status Status post colostomy, follow-up exam ([facility]) SUBJECTIVE Resting in bed, [...] No results found for: ALB , PROT @LABRCNT[facility]:3)@ No results found for: CRP No results [...] left ulnar artery Dementia with behavioral disturbance ([facility]) Altered mental status Status post colostomy, follow-up exam ([facility]) Recommendations/Plan: Continue PT, OT and speech therapy Contact guard assist with gait and transfers Will need 24 hour supervision Fall precautions, status post fall Family education Melatonin to regulate sleep cycle Awaiting on placement Will follow up with you for rehab needs Sonya Astudillo MD Images from the original note were not included. [facility] 07/13/2024 Patient Name: Noé Jeffery : 1965 Problem List: Principal Problem: Dementia with behavioral disturbance ([facility]) Active Problems: Altered mental status Status post colostomy, follow-up exam ([facility]) Assessment Rapid onset Dementia with behavioral disturbances [...] Spinal Fluid culture includes gram stain, CSF [[id number]] Collected: 07/10/24 0939 Specimen: Cerebrospinal Fluid Updated: 07/13/24 0730 Gram Stain Result WHITE BLOOD CELLS PRESENT NO ORGANISMS SEEN ON CONCENTRATED SMEAR Culture NO GROWTH 3 DAYS Physical Medicine and Rehabilitation Daily Progress Note Today's Date and Time: 07/13/2024, 9:28 AM Subjective/Chief complaint: Dementia with behavioral disturbance ([facility]) Principal Problem: Dementia with behavioral disturbance (CMS-HCC) Active Problems: Altered mental status Status post colostomy, follow-up exam ([facility]) SUBJECTIVE Resting in bed, denies any chest [...] left ulnar artery Dementia with behavioral disturbance ([facility]) Altered mental status Status post colostomy, follow-up exam ([facility]) Recommendations/Plan: Continue PT, OT and speech therapy Contact guard assist with gait and transfers Will benefit from inpatient rehab, TBI Unit Will need 24 hour supervision Fall precautions, status post fall Family education Melatonin to regulate sleep cycle Will follow up with you for rehab needs Sonya Astudillo MD Images from the original note were not included. [facility] 07/12/2024 Patient Name: Noé Jeffery : 1965 Problem List: Principal Problem: Dementia with behavioral disturbance ([facility]) Active Problems: Altered mental status Status post colostomy, follow-up exam ([facility]) Assessment Rapid onset Dementia with behavioral disturbances [...] Spinal Fluid culture includes gram stain, CSF [[id number]] Collected: 07/10/24 0939 Specimen: Cerebrospinal Fluid Updated: 07/12/24 0736 Gram Stain Result WHITE BLOOD CELLS PRESENT NO ORGANISMS SEEN ON CONCENTRATED SMEAR Culture NO GROWTH 2 DAYS Images from the original note were not included. [facility] Neurology General Neurology Consultation Progress Note Consult Neurology Service: [phone] Chief Complaint and Reason for Consultation: Decline [...] with complete remission. He follows up with [facility] and had underwent a heavy metal [...] decline, Patient had presented to ED in [place] June 18 after waking up not oriented and delusional. Then June 25 he woke up again not knowing where he is delusional thinking his sister was an intruder so he was brought to [facility] and discharged later that evening. He was seen by social services referred to a mental health center and per family his mental status had worsened and they felt he was being overmedicated with Benadryl. 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 The impression there was no infectious or metabolic etiology so patient was transferred to [facility] for higher level of care. Interval [...] markers confirmed early onset Alzheimer's established in [facility] September 2022 (Dr. Lemuel Guerra) but reportedly functional at home per family, in addition to hyperlipidemia, GERD, T2DM. Patient was transferred found [facility] for higher level of care and workup of sharp decline in cognition since May 2024. Patient had presented multiple times to the ED and admitted [facility] for delusional thinking/hallucinations/agitatio n. Impression: Acute [...] arise. Arnulfo Haley MD PGY2 Neurology [facility] Seen and staffed with: Dr. Nails This patient is being followed by the Neurology Resident service. Contact attending directly during these hours: Tuesday to 7:30-8:30 A.M. to Tuesday 12-1:00 p.m. Primary Neurology service: [phone] Consult neurology service: [phone] Resident Stroke Service: [phone] If the patient belongs to the Stroke [...] any question or concerns. Zach Nails MD. It Administrator of Neurology [facility] Images from the original note were not included. [facility] 07/11/2024 Patient Name: Noé Jeffery : 1965 Problem List: Principal Problem: Dementia with behavioral disturbance ([facility]) Active Problems: Altered mental status Assessment Rapid [...] discharge, currently working on disposition. Refused from [address] [place] [address] DVT prophylaxis: Heparin Code Status: Full Plan [...] COMPARISON: July 03, 2024 brain MRI from [facility] Procedure: Multiplanar, multisequence imaging performed through [...] and cranio-cervical junction. Flow voids documented in [place] and dural venous sinuses. No [...] Spinal Fluid culture includes gram stain, CSF [[id number]] Collected: 07/10/24 0939 Specimen: Cerebrospinal Fluid Updated: 07/11/24 0718 Gram Stain Result WHITE BLOOD CELLS PRESENT NO ORGANISMS SEEN ON CONCENTRATED SMEAR Culture NO GROWTH <24 HRS Images from the original note were not included. [facility] Neurology General Neurology Consultation Progress Note Consult Neurology Service: [phone] Chief Complaint and Reason for Consultation: Decline [...] with complete remission. He follows up with [facility] Neurology and had underwent a [...] decline, Patient had presented to ED in [place] June 18 after waking up not oriented and delusional. Then June 25 he woke up again not knowing where he is delusional thinking his sister was an intruder so he was brought to [facility] and discharged later that evening. He was seen by social services referred to a mental health center and per family his mental status had worsened and they felt he was being overmedicated with Benadryl. 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 The impression there was no infectious or metabolic etiology so patient was transferred to [facility] for higher level of care. Interval [...] markers confirmed early onset Alzheimer's established in [facility] September 2022 (Dr. Lemuel Guerra) but reportedly functional at home per family, in addition to hyperlipidemia, GERD, T2DM. Patient was transferred found [facility] for higher level of care and workup of sharp decline in cognition since May 2024. Patient had presented multiple times to the ED and admitted [facility] for delusional thinking/hallucinations/agitatio n. Impression: Acute [...] follow. Arnulfo Haley MD PGY2 Neurology [facility] Seen and staffed with: Dr. Nails This patient is being followed by the Neurology Resident service. Contact attending directly during these hours: Tuesday to 7:30-8:30 A.M. to Tuesday 12-1:00 p.m. Primary Neurology service: [phone] Consult neurology service: [phone] Resident Stroke Service: [phone] If the patient belongs to the Stroke [...] evaluation and appropriate disposition. Zach Nails MD. It Administrator of Neurology [facility] Images from the original note were not included. [facility] 07/10/2024 Patient Name: Noé Jeffery : [...] COMPARISON: July 03, 2024 brain MRI from [facility] Procedure: Multiplanar, multisequence imaging performed through [...] and cranio-cervical junction. Flow voids documented in [place] and dural venous sinuses. No [...] Spinal Fluid culture includes gram stain, CSF [[id number]] Resulted: 07/10/24 1055 Updated: 07/10/24 1148 Images from the original note were not included. [facility] 07/09/2024 Patient Name: Noé Jeffery : [...] brain and lumbar puncture under sedation Continue Geodon PRN Patient continues to have episodes of agitation [...] from the original note were not included. [facility] Neurology General Neurology Consultation Progress Note Consult Neurology Service: [phone] Chief Complaint and Reason for Consultation: Decline [...] with complete remission. He follows up with [facility] Neurology and had underwent a heavy metal screen, [facility] analysis, MRI 2021 showing severe generalized volume [...] decline, Patient had presented to ED in [place] June 18 after waking up not oriented and delusional. Then June 25 he woke up again not knowing where he is delusional thinking his sister was an intruder so he was brought to [facility] and discharged later that evening. He was seen by social services referred to a mental health center and per family his mental status had worsened and they felt he was being overmedicated with Benadryl. 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 The impression there was no infectious or metabolic etiology so patient was transferred to [facility] for higher level of care. Interval [...] markers confirmed early onset Alzheimer's established in [facility] September 2022 (Dr. Lemuel Guerra) but reportedly functional at home per family, in addition to hyperlipidemia, GERD, T2DM. Patient was transferred found [facility] for higher level of care and workup of sharp decline in cognition since May 2024. Patient had presented multiple times to the ED and admitted [facility] for delusional thinking/hallucinations/agitatio n. Impression: Acute [...] follow. Arnulfo Haley MD PGY2 Neurology [facility] Seen and staffed with: Dr. Nails This patient is being followed by the Neurology Resident service. Contact attending directly during these hours: Tuesday to 7:30-8:30 A.M. to Tuesday 12-1:00 p.m. Primary Neurology service: [phone] Consult neurology service: [phone] Resident Stroke Service: [phone] If the patient belongs to the Stroke [...] of violent/anger outburst/paranoid behavior. Zach Nails MD. It Administrator of Neurology [facility] NUTRITION ADULT INITIAL EVALUATION NUTRITION ASSESSMENT: Reason to be seen: Database trigger for intake <50% of normal over the last 2 weeks Patient History: Admit Diagnosis: Patient Active Problem List Diagnosis Laceration of left ulnar artery Dementia with behavioral disturbance (CMS-HCC) Altered mental status Past Medical History: Past Medical History: Diagnosis Date GERD (gastroesophageal reflux disease) High cholesterol Perforated sigmoid colon ([facility]) Past Surgical History: Past Surgical History: Procedure Laterality Date ARM EXPLORATION WITH REPAIR LACERATED ULNAR ARTERY Left 11/24/2019 Performed by Skyler Bowen MD at [facility] 3YEARS AGO COLOSTOMY CLOSURE Social/ Cognitive/ Economic: Pt in an agitated state and screaming from room. Unable to see pt as RN reports he has been in a very agitated state at the time of RD visit. Brief Clinical Summary: Pt transferred and direct admitted to [facility] as a transfer from [facility] for neurological evaluation 2/2 aggressive behavior and [...] days Lab Units 07/08/24 0544 07/07/24 0544 WBC X10E9/L 4.1 4.4 HEMOGLOBIN g/dL [...] (H) 05/10/2016 Lab Results Component Value Date [id number] 07/08/2024 Lab Results Component Value Date [...] Skin (per nursing flow sheets): Skin Color: [place]; Pale (07/08/24827) Skin Temp: Warm; Dry (07/08/24827) Overall Appearance: Unable to assess Intake/ Output [...] Type: NPO NPO Except: Except medications 07/08/24 1607 Diet Intakes: Percent Meals Eaten (%): 100 [...] Weight: Unknown as no wt on file. [place] Body Weight: 61.8 kg Percent [place] Body Weight: 136 Weight Changes: No wt's on file to assess Body Mass Index: 30.7 kg^m2 BMI Category: Obese (> or = 30.0) Note: Calculations based on previous wt and ht on file from 06/24 07/22 no anthropometrics on file for this admission. Comparative Standards: Estimated Energy Needs: 3840-3887 kcals daily. Method and weight used: 25-32 kcal/kg IBW Estimated Protein Needs: 74-124 grams daily. Method and weight used: 1.2-2g protein/kg IBW Estimated Fluid Needs: 6655-1431 ml daily. Method weight used: 1 ml/kcal Comments: floor needs Malnutrition Status: Malnutrition Present: No NUTRITION DIAGNOSIS: Intake Diagnosis: Predicted suboptimal nutrient intake (NI 5.11.1) related to self monitoring deficit as evidenced by nursing screen reporting pt eating <50% of normal intake x 2 weeks. NUTRITION INTERVENTIONS: Meals and Snacks: Continue per FOOD MOBILE DRIVER and medical team recommendations Supplements: Will add [...] were not included. [facility] Hospitalist [facility] 07/08/2024 Patient Name: Noé Jeffery : [...] from the original note were not included. [facility] Neurology General Neurology Consultation Progress Note Consult Neurology Service: [phone] Chief Complaint and Reason for Consultation: Decline [...] with complete remission. He follows up with [facility] Neurology and had underwent a [...] decline, Patient had presented to ED in [place] June 18 after waking up not oriented and delusional. Then June 25 he woke up again not knowing where he is delusional thinking his sister was an intruder so he was brought to [facility] and discharged later that evening. He was seen by social services referred to a mental health center and per family his mental status had worsened and they felt he was being overmedicated with Benadryl. 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 The impression there was no infectious or metabolic etiology so patient was transferred to [facility] for higher level of care. Interval [...] markers confirmed early onset Alzheimer's established in [facility] September 2022 (Dr. Lemuel Guerra) but reportedly functional at home per family, in addition to hyperlipidemia, GERD, T2DM. Patient was transferred found [facility] for higher level of care and workup of sharp decline in cognition since May 2024. Patient had presented multiple times to the ED and admitted [facility] for delusional thinking/hallucinations/agitatio n. Impression: Acute [...] follow. Cecile Henry MD PGY-3 Neurology Resident [facility] Seen and staffed with: Dr. Nails This patient is being followed by the Neurology Resident service. Contact attending directly during these hours: Tuesday to 7:30-8:30 A.M. to Tuesday 12-1:00 p.m. Primary Neurology service: [phone] Consult neurology service: [phone] Resident Stroke Service: [phone] If the patient belongs to the Stroke [...] of violent/anger outburst/paranoid behavior. Zach Nails MD. It Administrator of Neurology [facility] Images from the original note were not included. [facility] Neurology General Neurology Consultation Progress Note Consult Neurology Service: [phone] Chief Complaint and Reason for Consultation: Decline [...] with complete remission. He follows up with [facility] Neurology and had underwent a heavy metal screen, [facility] analysis, MRI 2021 showing severe generalized volume [...] decline, Patient had presented to ED in [place] June 18 after waking up not oriented and delusional. Then June 25 he woke up again not knowing where he is delusional thinking his sister was an intruder so he was brought to [facility] and discharged later that evening. He was seen by social services referred to a mental health center and per family his mental status had worsened and they felt he was being overmedicated with Benadryl. 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 The impression there was no infectious or metabolic etiology so patient was transferred to [facility] for higher level of care. Interval [...] markers confirmed early onset Alzheimer's established in [facility] October 2022 in addition to hyperlipidemia, GERD, dm 2. Patient was transferred found [facility] for higher level of care and workup of sharp decline in cognition since May 2024. Patient had presented multiple times to the ED and admitted [facility] for delusional thinking/hallucinations/agitatio n. Impression: Acute [...] follow. Arnulfo Haley MD PGY2 Neurology [facility] Seen and staffed with: Dr. Nails This patient is being followed by the Neurology Resident service. Contact attending directly during these hours: Tuesday to 7:30-8:30 A.M. to Tuesday 12-1:00 p.m. Primary Neurology service: [phone] Consult neurology service: [phone] Resident Stroke Service: [phone] If the patient belongs to the Stroke [...] type), obtain routine EEG. Zach Nails MD. It Administrator of Neurology [facility] [employer] Images from the original note were not included. [facility] 07/07/2024 Patient Name: Noé Jeffery [...] last 168 hours. documented in this encounter [facility] 07-21-2024 Plan of care note Problem: Safety [...] at the bedside 7. Instruct patient/ patient graphic art sales representative about use of safety devices 8. Include patient/ patient graphic art sales representative in decisions related to safety Outcome: Progressing Note: Evaluation of progress towards goal: pt remains free from injury Problem: Knowledge Deficit Goal: Patient/patient graphic art sales representative demonstrates understanding of disease process, treatment [...] of =/> 25 or indicated by [facility] Rehab Assessment Goal: Patient should be free from fall Description: Interventions: 1. [place] to environment 2. Hourly rounds addressing the [...] non-skid footwear 11. Teach patient and patient graphic art sales representative to maintain environment for safety and [...] (cane, walker) within reach 19. Request patient graphic art sales representative bring adaptive equipment/mobility aids from home or obtain and provide as needed 20. Consult pharmacy regarding effects of med's affecting mobility, cognition, and alternatives 21. Obtain physician order for PT if risk factors associated with mobility are present 22. Obtain physician order for OT as appropriate 23. Utilize diversional activities 24. Educate patient and patient graphic art sales representative how to maintain a safe environment during visitation times (notify nurse prior to leaving bedside) 25. Consider appropriateness of medical or non-medical technologist microbiology 26. Set up voiding schedule as appropriate (every 2 hours) Outcome: Progressing Note: Evaluation of progress towards goal: fall precautions in place and pt remains free from falls [employer] 07-20-2024 Progress note Formatting of t his note might be different from the original. DISCHARGE PLANNING NOTE Patient's family has appealed his discharge & we have received notification from [facility] that a DC appeal has been called in. The chart, DND form, & IMM have been successfully uploaded by typewriter ribbon winder to the [employer] and successfully received by [employer]. [employer] will notify the of the patient of the appeal determination. Post Commander phone called patient's & read the DND notice to her. Paper copy of the DND notice to be delivered to the patient's bedside. Post Commander informed to anticipate phone call from [employer] re: determination of DC Appeal & encouraged wifeto answer the phone when [employer] calls. expressed verbal understanding of DND and the DC appeal process. - NELLI GLEZ [facility] 07/20/24 5:13 PM [facility] 07-20-2024 Consult note Associated Order (s): IP CONSULT TO NEUROSURGERY Images from the original note were not included. [facility] [address] [place] [address], [address] [place] [address] * NEUROSURGERY CONSULT NOTE DATE:07/20/2024 PATIENT'S NAME: [...] capsule 100 mg, 100 mg, oral, BID, Luiz Shipley MD, 100 mg at 07/20/2440 DULoxetine (CYMBALTA) DR capsule 20 mg, 20 mg, oral, Daily, Nichol Heath MD, 20 mg at 07/20/2440 enoxaparin (LOVENOX) syringe 40 mg, 40 mg, subcutaneous, Daily, Luiz Shipley MD, 40 mg at 07/20/2441 glucagon HCL injection 1 mg, 1 mg, [...] 11/24/2019 Performed by Skyler Bowen MD at [facility] COLONOSCOPY BROCK 3YEARS AGO COLOSTOMY CLOSURE PUNCTURE LUMBAR N/A 07/10/2024 Performed by Zach Nails MD at [facility] FAMILY HISTORY Family History Problem Relation [...] care per primary team FRAN Burton Neurosurgery [facility] Please contact via Concept.iot first then can utilize Patient touch/VocMall Streetdge if needed- 07/20/24 3:45 PM To find out which ASHLEE is on for the day please go to Yoopies and use log in [email or web address] and search for PTH Neurosurgery FRAN Charles 07/20/24 3155 [employer] [facility] 07-20-2024 Consult note Associated Order (s): IP CONSULT TO NEUROSURGERY Images from the original note were not included. [facility] [address] [place] [address], [address] [place] [address] * NEUROSURGERY CONSULT NOTE DATE:07/20/2024 PATIENT'S NAME: [...] capsule 100 mg, 100 mg, oral, BID, Luiz Shipley MD, 100 mg at 07/20/24 0840 DULoxetine (CYMBALTA) DR capsule 20 mg, 20 mg, oral, Daily, Nichol Heath MD, 20 mg at 07/20/24 0840 enoxaparin (LOVENOX) syringe 40 mg, 40 mg, subcutaneous, Daily, Luiz Shipley MD, 40 mg at 07/20/24 0841 [...] 11/24/2019 Performed by Skyler Bowen MD at [facility] COLONOSCOPY BROCK 3YEARS AGO COLOSTOMY CLOSURE PUNCTURE LUMBAR N/A 07/10/2024 Performed by Zach Nails MD at [facility] FAMILY HISTORY Family History Problem Relation [...] care per primary team FRAN Burton Neurosurgery [facility] Please contact via [employer] first then can utilize Patient touch/VoceraEdge if needed- 07/20/24 3:45 PM To find out which ASHLEE is on for the day please go to Yoopies and use log in [email or web address] and search for PTH Neurosurgery FRAN Charles 07/20/24 1632 Images from the original note were not included. [facility] Neurology General Neurology Consult Note Primary Neurology service: [phone] Patient - Noé Jeffery Age - 59 y[facility] 1965 [id number] Date of Admission - 07/06/2024 7:28 AM [...] with complete remission. He follows up with [facility] Neurology and had underwent a [...] and symmetric in all four extremities. Coordination Nkzbho-sq-cabj, rapid alternating movements and fbbe-qs-auba normal bilaterally without dysmetria. Gait Deferred. Psychiatric [...] biomarkers confirmed early onset diagnosis established in [facility] September 2022 but reportedly functional at home per family in addition to hyperlipidemia, GERD, dm 2. Patient was transferred from [facility] for higher level of care and [...] Neurology standpoint Khalif Valerio MD PGY-1 Neurology [facility] 07/19/24 1:[address] Sofia This patient is being followed by the Neurology Resident service. Contact attending directly during these hours: Tuesday to 7:30-8:30 A.M. to Tuesday 12-1:00 p.m. Primary Neurology service: [phone] Consult neurology service: [phone] Resident Stroke Service: [phone] If the patient belongs to the Stroke [...] for: EAG Lab Results Component Value Date [id number] 07/08/2024 Neurological work up: CT head CTA head and neck MRI brain 05/07/2022 hippocampal volume loss. White matter changes. 2 D echo Assessment and recommendations Delirium superimposed on baseline cognitive impairment Presyncope likely neurocardiogenic Hypotension Early-onset Alzheimer disease confirmed with bio markers at 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 Physicians/Services Consulting Providers Provider Service Specialty Mina [...] reflux disease) High cholesterol Perforated sigmoid colon ([facility]) PSH Past Surgical History: Procedure Laterality Date ARM EXPLORATION WITH REPAIR LACERATED ULNAR ARTERY Left 11/24/2019 Performed by Skyler Bowen MD at [facility] COLONOSCOPY BROCK 3YEARS AGO COLOSTOMY CLOSURE Allergies Allergies Allergen [...] mg/dL Cytology Collection Time: 07/10/24 9:39 AM [facility] [address] [place] [address] Cytology Consultation Patient Name:NOÉ JEFFERY:1965 (Age: 58)Gender:MTaken:07/10/2024Report ed:07/11/2024 16:49Physician(s):Arnulfo Haley M.D. ([phone])Copy To:Lonnie Baker M.D. Nichol Heath M.D. Rec. #:[id number]: #[id number] Final Cytologic Diagnosis Cerebrospinal fluid: No malignant cells identified. 07/11/2024 Interpretation performed at [facility], [address] [place] [address], License number: [id number].Electronically Signed Out By Derick Lorenz MD Additional Report(s): Flow Cytometry-Surg/BM/NG Date Reported: # Immunophenotyping antibodies tested: CD3, CD4, CD5, CD7, CD8, CD19, CD20, CD45, Avinger, and Lambda. Immunophenotyping Comment: Immunophenotyping has been used in this diagnostic evaluation. This test was developed and its performance characteristics determined by the [facility] Department. It has not been [...] MD Clinical History Dementia with behavioral disturbance ([facility]) F03.918, acute change in personality Gross Description Received was 2ml of clear colorless fluid unfixed labeled as Jeffery, CSF . Also received is one cytospin slide from Hematology. Source of Specimen Cerebrospinal fluid Non FUR OPERATOR ThinPrep, Cytospin Slide Fee Code(s): 1; 48884 VDRL, Spinal Fluid Collection Time: 07/10/24 9:39 [...] Assessment/Plan Principal Problem: Dementia with behavioral disturbance ([facility]) Active Problems: Altered mental status Status post colostomy, follow-up exam ([facility] [place] [facility]) Acute mental status change patient also was [...] restraint CHIEF COMPLAINT: Dementia with behavioral disturbance ([facility] [place] [facility]) Noé Jeffery is a 58 y.o. male who presents with Dementia with behavioral disturbance ([facility]) .he is HISTORY OF PRESENT ILLNESS: The patient is a 58-year-old [place] African male treatment at the [facility] for the patient has a substantial history of dyslipidemia, sleep apnea, type 2 diabetes mellitus, recent diagnosed history of early-onset Alzheimer's dementia, an epileptic disorder in remission, as well as a recent admission to [facility] for altered mental status. An MRI [...] discharged to a memory care unit or mcc that is well-versed in the treatment of [...] 11/24/2019 Performed by Skyler Bowen MD at [facility] 3YEARS AGO COLOSTOMY CLOSURE Medications Prior to [...] to a memory care unit or a mcc that is well-versed in management of memory [...] from the original note were not included. [facility] Neurology General Neurology Consult Note Primary Neurology service: [phone] Chief Complaint: HPI: Noé Jeffery is a [...] with complete remission. He follows up with [facility] Neurology and had underwent a [...] decline, Patient had presented to ED in [place] June 18 after waking up not oriented and delusional. Then June 25 he woke up again not knowing where he is delusional thinking his sister was an intruder so he was brought to [facility] and discharged later that evening. He was seen by social services referred to a mental health center and per family his mental status had worsened and they felt he was being overmedicated with Benadryl. 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 The impression there was no infectious or metabolic etiology so patient was transferred to [facility] for higher level of care. On my evaluation patient was restless fidgeting and did not allow me to speak him or enter the room, he would tell me his family members names what refused to tell me his name asked me to leave the room. I could not do any assessment [place] test or neurological exam. Per family patient [...] markers confirmed early onset Alzheimer's established in [facility] October 2022 in addition to hyperlipidemia, GERD, dm 2. Patient was transferred found [facility] for higher level of care and workup of sharp decline in cognition since May 2024. Patient had presented multiple times to the ED and admitted [facility] for delusional thinking/hallucinations/agitatio n. On evaluation [...] once reconciled. Khalif Valerio MD PGY-1 Neurology [facility] 07/06/24 9:[address] Sofia This patient is being followed by the Neurology Resident service. Contact attending directly during these hours: Tuesday to 7:30-8:30 A.M. to Tuesday 12-1:00 p.m. Primary Neurology service: [phone] Consult neurology service: [phone] Resident Stroke Service: [phone] If the patient belongs to the Stroke ASHLEE service please contact the Stroke ASHLEE directly. Cosigned by Kelley Sofia MD at 07/06/2024 11:32 PM EST Associated attestation - Kelley Sofia MD - 07/06/2024 11:32 PM EST Kelley Sofia MD Neurology documented in this encounter [facility] 07-20-2024 Hospital Discharge instructions Luiz Shipley MD - 07/20/2024 3:28 PM EST 07/30 at 12:40 Hospital follow up with Fidelina Fisher CNP [facility] TBI [address] [place] [address] Please follow up with Neurosurgery [...] Hospital follow up with Fidelina Fisher CNP [facility] TBI [address] [place] [address] Pt. should bring the following [...] For NEW patients, MD will not prescribe long term care pharmacist pain medication. The following attachments cannot be sent through Care Everywhere.Dementia Discharge Instructions (Lao)Time to stop driving? (Lao)Dementia (including Alzheimer disease) (Lao)documented in this encounter [facility] 07-20-2024 Plan of care note Problem: [...] at the bedside 7. Instruct patient/ patient graphic art sales representative about use of safety devices 8. Include patient/ patient graphic art sales representative in decisions related to safety Outcome: Progressing Note: Evaluation of progress towards goal: Patient remains injury free at this time. Problem: Knowledge Deficit Goal: Patient/patient graphic art sales representative demonstrates understanding of disease process, treatment [...] of =/> 25 or indicated by [facility] Rehab Assessment Goal: Patient should be free from fall Description: Interventions: 1. [place] to environment 2. Hourly rounds addressing the [...] non-skid footwear 11. Teach patient and patient graphic art sales representative to maintain environment for safety and [...] (cane, walker) within reach 19. Request patient graphic art sales representative bring adaptive equipment/mobility aids from home or obtain and provide as needed 20. Consult pharmacy regarding effects of med's affecting mobility, cognition, and alternatives 21. Obtain physician order for PT if risk factors associated with mobility are present 22. Obtain physician order for OT as appropriate 23. Utilize diversional activities 24. Educate patient and patient graphic art sales representative how to maintain a safe environment during visitation times (notify nurse prior to leaving bedside) 25. Consider appropriateness of medical or non-medical technologist microbiology 26. Set up voiding schedule as appropriate (every 2 hours) Outcome: Progressing Note: Evaluation of progress towards goal: Patient remains free from falls at this time. Next 1 [employer] [facility] 07-20-2024 Telephone encounter Note Spoke to , Kari. Pt is currently at [facility]. Pt is being denied an admit to rehab facility. I am unable to view notes from that hospital. Suggestion given to [facility] as [facility] does not have a TBI clinic. Family will have to work with staff at [facility]. Verbalized understanding. [facility] 07-20-2024 Miscellaneous Notes Spoke to , Kari. Pt is currently at [facility]. Pt is being denied an admit to rehab facility. I am unable to view notes from that hospital. Suggestion given to [facility] as [facility] does not have a TBI clinic. Family will have to work with staff at [facility]. Verbalized understanding. Spoke with Dr Harmon (sp?) from [facility] regarding patient. Family is requesting transfer to a [facility] TBI center, inpatient. I advised that Dr Guerra cannot assist in this matter. Patient mailbox is full unable to leave message Patient returned your call and can be reached at: Call patient at: on cell [phone] (home) [phone] (cell) documented in this encounter [facility] 07-20-2024 Progress note Formatting of t his note might be different from the original. DISCHARGE PLANNING NOTE 07/30 at 12:40 Hospital follow up with Fidelina Fisher CNP [facility] TBI [address] [place] [address] [facility] 07-20-2024 Hospital course Narrative Images from the original note were not included. 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 in October 2022 Myoclonic jerking movements responsive to Depakote CONSULTANTS: Consulting Providers Provider Service Specialty Mina Franks MD Psychiatry Psychiatry Jessica Johnson MD -- Neurology Kelley Sofia MD -- Neurology PROCEDURES PERFORMED: Lumbar puncture HOSPITAL COURSE SUMMARY: Per HPI: 59-year-old male patient with Confirmed early onset Alzheimer's disease established in [facility] October 2022, patient had fall June 09, [...] TBI clinic follow-up and management. Also contacted [facility], per family request. Spoke with [...] outpatient workup. I also spoke with Neurosurgery OIL DISTRIBUTOR Victorina Marcelino, and have made arrangements for [...] diet Follow up: Jae Lopez MD [address] [facility] [address] Schedule an appointment as soon as possible for a visit in 1 week(s) Jessica Johnson MD [address] [facility] [phone] Schedule an appointment as soon as possible for a visit in 2 week(s) 07/30 at 12:40 Hospital follow up with Fidelina Fisher CNP [facility] TBI [address] [place] [address] Please follow up with Neurosurgery [...] and corrected by editing. Electronically signed by: LUIZ SHIPLEY MD, VLADIMIR, 07/20/2024 4:18 PM [facility]24 Progress note Formatting of t his note might be different from the original. Confirmed with Taylor at [facility] she did receive the updated notes (neuro, PMR, PT/OT) that were faxed and uploaded to [facility]. She is almost finishing writing it up for physician review and will call us with their determination by 10am. 9:31 am Received call from Taylor at [facility] IPR-she reviewed updated notes with medical voucher clerk and they remain unable to accept after our 3rd request for review. She said he is doing too well functionally, does not need OT/PT services. She said after discussion with medical voucher clerk their facility would be of no benefit to the patient. This information was communicated to interdisciplinary team via [email or web address] chat [facility] Telephone encounter Note Received transfer center request to discuss with referring physician. Briefly, this patient with baseline cognitive impairment (? Early AD) had a fall with closed head injury and behavioral changes post-fall. He is medically stable and behavior has improved. Referrals were made to multiple TBI rehab facilities and all declined. The family requests transfer to [facility] inpatient service for further cognitive evaluation and management. It sounds like the patient is appropriately managed thus far and has no ongoing inpatient care needs. Thus, hospital to hospital transfer is not likely to be beneficial. We discussed the 3 neurorehab centers in our network. Referring MD will confirm with child welfare caseworker that referrals were sent to all 3. If the patient is discharged home or to SNF, we can potentially expedite an appointment with our PMR colleagues/TBI multidisciplinary clinic. I will alert Drs. Aguilar and Earl to the referral. Briana Mcdermott MD [facility] Work Phone: 07-20-2024 Miscellaneous Notes Received transfer center request to discuss with referring physician. Briefly, this patient with baseline cognitive impairment (? Early AD) had a fall with closed head injury and behavioral changes post-fall. He is medically stable and behavior has improved. Referrals were made to multiple TBI rehab facilities and all declined. The family requests transfer to [facility] inpatient service for further cognitive evaluation and management. It sounds like the patient is appropriately managed thus far and has no ongoing inpatient care needs. Thus, hospital to hospital transfer is not likely to be beneficial. We discussed the 3 neurorehab centers in our network. Referring MD will confirm with child welfare caseworker that referrals were sent to all 3. If the patient is discharged home or to SNF, we can potentially expedite an appointment with our PMR colleagues/TBI multidisciplinary clinic. I will alert Drs. Aguilar and Earl to the referral. Briana Mcdermott MD documented in this encounter [facility] 07-20-2024 Progress note Formatting of t his note might be different from the original. DISCHARGE PLANNING NOTE Sent face sheet to [facility] for hospital transfer via secure fax to # [phone] [facility] 07-20-2024 Progress note Formatting of t his note might be different from the original. DISCHARGE PLANNING NOTE Discharge plan- awaiting responses from [facility] if they can accept. Tasked [facility] to send neuro note from yesterday to them again. Tasked CN to fax his face sheet to [facility] per physician request since she is calling them about a hospital to hospital transfer per families request. Leadership team aware. - NANCY PARRISH 07/20/24 8:19 AM Discussed patient and d/c planning with leadership team. Everyone in agreement with d/c today since per physician [facility] can not accept as a hospital transfer and [facility] IPR has denied as well. Physician and this typewriter ribbon winder spoke with patient, and sister that is present re: d/c today and that patient will be going home with outpatient ST and an appointment has been made for a TBI clinic for follow up. Provided IMM to and explained. Leadership aware. - NANCY PARRISH 07/20/24 11:29 AM [facility] 07-20-2024 Progress note Formatting of t his note might be different from the original. DISCHARGE PLANNING NOTE Neuro Note sent to [facility] (P# [phone] ; F# [phone]) in careport and via [employer]. [facility] 07-20-2024 Plan of care note Problem: [...] at the bedside 7. Instruct patient/ patient graphic art sales representative about use of safety devices 8. Include patient/ patient graphic art sales representative in decisions related to safety Outcome: Progressing Note: Evaluation of progress towards goal: Pt remains free from injury and significant other at bedside Problem: Knowledge Deficit Goal: Patient/patient graphic art sales representative demonstrates understanding of disease process, treatment [...] of =/> 25 or indicated by [facility] Rehab Assessment Goal: Patient should be free from fall Description: Interventions: 1. [place] to environment 2. Hourly rounds addressing the [...] non-skid footwear 11. Teach patient and patient graphic art sales representative to maintain environment for safety and [...] (cane, walker) within reach 19. Request patient graphic art sales representative bring adaptive equipment/mobility aids from home or obtain and provide as needed 20. Consult pharmacy regarding effects of med's affecting mobility, cognition, and alternatives 21. Obtain physician order for PT if risk factors associated with mobility are present 22. Obtain physician order for OT as appropriate 23. Utilize diversional activities 24. Educate patient and patient graphic art sales representative how to maintain a safe environment during visitation times (notify nurse prior to leaving bedside) 25. Consider appropriateness of medical or non-medical technologist microbiology 26. Set up voiding schedule as appropriate (every 2 hours) Outcome: Progressing Note: Evaluation of progress towards goal: pt remains free from falls and fall precautions are in place [employer] 07-19-2024 Progress note Formatting of t his note might be different from the original. DISCHARGE PLANNING NOTE Updates to [facility] (P# [phone] ; F# [phone]) [employer] [facility] 07-19-2024 Progress note Formatting of t [...] therapy per MARCI Rothman Equipment: gait belt Telemetry/Horticultural Farm Manager: No Oxygen Used: room air Other: fall [...] up w/mother's name; educated sister on playing [employer] songs from pt's younger years, to encourage [...] Outcomes Date/Time User Outcome 07/19/24 1445 Yoanna Ellsworth MARINATOR/L Progressing 07/17/24 1439 Yoanna Ellsworth MARINATOR/L Progressing Problem: Bathing LB Dates: Start: 07/13/24 [...] Date/Time User Outcome 07/19/24 1445 Yoanna Han-Mahoney, MARINATOR/L Progressing 07/17/24 1439 Yoanna Han-Mahoney, MARINATOR/L Progressing Problem: Dressing LB Dates: Start: 07/13/24 [...] Date/Time User Outcome 07/19/24 1445 Yoanna Han-Mahoney, MARINATOR/L Progressing 07/17/24 1439 Yoanna Han-Mahoney, KWADWO/L Progressing Problem: Grooming Dates: Start: 07/13/24 Disciplines: OT Goal: Patient will perform grooming Independently Dates: Start: 07/13/24 Expected End: 08/13/24 Description: Goal Description: Disciplines: OT Outcomes Date/Time User Outcome 07/17/24 1439 Yoanna Han-Mahoney, MARINATOR/L Progressing Problem: Standing Balance Dates: Start: 07/13/24 Disciplines: OT Goal: Improve balance to normal Dates: Start: 07/13/24 Expected End: 08/13/24 Description: Normal dynamic balance. Disciplines: OT Outcomes Date/Time User Outcome 07/19/24 1445 Yoanna Han-Mahoney, MARINATOR/L Progressing 07/17/24 1439 Yoanna Han-Mahoney, KWADWO/L Progressing Problem: Toilet Transfers Dates: Start: 07/13/24 Disciplines: OT Goal: Patient will perform toilet transfers Independently Dates: Start: 07/13/24 Expected End: 08/13/24 Description: Goal Description: Disciplines: OT Outcomes Date/Time User Outcome 07/17/24 1439 Yoanna Han-Mahoney, MARINATOR/L Progressing Problem: Toileting Dates: Start: 07/13/24 Disciplines: [...] Han-Mahoney, KWADWO/L Progressing 07/17/24 1439 Yoanna Han-Mahoney, MARINATOR/L Progressing Occupational Therapy Care Plan (Resolved) There are no resolved problems. Principal Problem: Dementia with behavioral disturbance ([facility]) Active Problems: Altered mental status Status post colostomy, follow-up exam ([facility]) Cosigned by MAYNOR Dillon/Jerome at 07/19/2024 3:13 PM EST Associated attestation - Veronica Gorman OTR/Jerome - 07/19/2024 3:13 PM EST I have reviewed and agree with this note and education documentation for this visit. [employer] [facility] 07-19-2024 Progress note Formatting of t [...] therapy per MARCI Rothman Equipment: gait belt Telemetry/Horticultural Farm Manager: Yes Oxygen Used: room air Other: fall [...] Goal: Patient will perform stairs/curb with Modified [place] Dates: Start: 07/13/24 Expected End: 07/27/24 Description: [...] mental status Status post colostomy, follow-up exam ([facility]) Cosigned by Jose Gorman PT at 07/19/2024 3:14 PM EST Associated attestation - Jose Gorman, PT - 07/19/2024 3:14 PM EST I have reviewed and agree with this note and education documentation for this visit. [facility] [employer] 07-19-2024 Plan of care note Problem: Safety [...] at the bedside 7. Instruct patient/ patient graphic art sales representative about use of safety devices 8. Include patient/ patient graphic art sales representative in decisions related to safety Outcome: Progressing Note: Evaluation of progress towards goal: Patient remains injury free at this time. Problem: Knowledge Deficit Goal: Patient/patient graphic art sales representative demonstrates understanding of disease process, treatment [...] of =/> 25 or indicated by [facility] Rehab Assessment Goal: Patient should be free from fall Description: Interventions: 1. [place] to environment 2. Hourly rounds addressing the [...] non-skid footwear 11. Teach patient and patient graphic art sales representative to maintain environment for safety and [...] (cane, walker) within reach 19. Request patient graphic art sales representative bring adaptive equipment/mobility aids from home or obtain and provide as needed 20. Consult pharmacy regarding effects of med's affecting mobility, cognition, and alternatives 21. Obtain physician order for PT if risk factors associated with mobility are present 22. Obtain physician order for OT as appropriate 23. Utilize diversional activities 24. Educate patient and patient graphic art sales representative how to maintain a safe environment during visitation times (notify nurse prior to leaving bedside) 25. Consider appropriateness of medical or non-medical technologist microbiology 26. Set up voiding schedule as appropriate (every 2 hours) Outcome: Progressing Note: Evaluation of progress towards goal: Patient remains free from falls. [employer] 07-19-2024 Consult note Formatting of th is note is different from the original. Images from the original note were not included. [facility] Neurology General Neurology Consult Note Primary Neurology service: [phone] Patient - Noé Jeffery Age - 59 y.o. - 1965 [facility] # - [id number] Date of Admission - 07/06/2024 7:28 AM [...] with complete remission. He follows up with [facility] Neurology and had underwent a [...] and symmetric in all four extremities. Coordination [id number], rapid alternating movements and [id number]-eo-iley normal bilaterally without dysmetria. Gait Deferred. Psychiatric [...] biomarkers confirmed early onset diagnosis established in [facility] September 2022 but reportedly functional at home per family in addition to hyperlipidemia, GERD, dm 2. Patient was transferred from [facility] for higher level of care and [...] Neurology standpoint Khalif Valerio MD PGY-1 Neurology [facility] 07/19/24 1:[address] Sofia This patient is being followed by the Neurology Resident service. Contact attending directly during these hours: Tuesday to 7:30-8:30 A.M. to Tuesday 12-1:00 p.m. Primary Neurology service: [phone] Consult neurology service: [phone] Resident Stroke Service: [phone] If the patient belongs to the Stroke [...] for: EAG Lab Results Component Value Date [id number] 07/08/2024 Neurological work up: CT head CTA head and neck MRI brain 05/07/2022 hippocampal volume loss. White matter changes. 2 D echo Assessment and recommendations Delirium superimposed on baseline cognitive impairment Presyncope likely neurocardiogenic Hypotension Early-onset Alzheimer disease confirmed with bio markers at [facility] Upon examination patient is awake, [...] meaning can be extrapolated by contextual derivation. [employer] Work Phone: 07-19-2024 Telephone encounter Note Spoke with Dr Harmon (sp?) from [facility] regarding patient. Family is requesting transfer to a [facility] TBI center, inpatient. I advised that Dr Guerra cannot assist in this matter. [facility] 07-19-2024 Progress note Formatting of t his note might be different from the original. DISCHARGE PLANNING NOTE Updates to [facility] (P# ; F# ) [employer] [facility] 07-19-2024 Progress note Formatting of t his note is different from the original. Images from the original note were not included. DISCHARGE PLANNING NOTE Discussed patient today during rounds. Plan-TBI center VS IPR. This typewriter ribbon winder and floor Mgr spoke with patient's over the phone and his sister in his room re: d/c planning. Updated them that [facility] has denied. Offered to send referral to [facility] to see if they can accept as well as sending blanketed SNF referrals. They are in agreement with sending to [facility] at this time and will let us know today if they would like SNF referrals sent or if the back up plan would be home. Tasked [facility] to send referral to [facility]. Leadership team aware. Services Requested: Services Requested Patient expects to be discharged to:: TBI center VS IPR Discharge Disposition: Acute rehab Patient Goals: Goals: Goals (pt-stated) Evaluation of progress towards goal: TBI center vs IPR - NANCY PARRISH 07/19/24 10:42 AM This typewriter ribbon winder and flooring installer and Dr. Shipley spoke with patient, and sister re: d/c planning. They are aware that [facility] is still reviewing referral. Asked if SNF referrals can be sent and they declined stating they would like the physician to see if she can get him transferred to [facility] as a physician to physician transfer. Updated Leadership. If neither of these hospitals can accept then patient to d/c home with since SNF has been declined. - NANCY PARRISH 07/19/24 12:14 PM This typewriter ribbon winder and floor mgr spoke with family to let them know [facility] has denied patient and that they recommend SNF for him. Tasked [facility] to send neuro note from today to [facility] to see if they can accept him with this updated note. Leadership aware. - NANCY PARRISH 07/19/24 3:21 PM [facility] 07-19-2024 Plan of care note Problem: Safety [...] at the bedside 7. Instruct patient/ patient graphic art sales representative about use of safety devices 8. Include patient/ patient graphic art sales representative in decisions related to safety Outcome: Progressing Note: Evaluation of progress towards goal: Problem: Knowledge Deficit Goal: Patient/patient graphic art sales representative demonstrates understanding of disease process, treatment [...] Progressing Note: Evaluation of progress towards goal: [facility] Plan of care note Problem: Safety [...] at the bedside 7. Instruct patient/ patient graphic art sales representative about use of safety devices 8. Include patient/ patient graphic art sales representative in decisions related to safety Outcome: Progressing Note: Evaluation of progress towards goal: Problem: Knowledge Deficit Goal: Patient/patient graphic art sales representative demonstrates understanding of disease process, treatment [...] Progressing Note: Evaluation of progress towards goal: [facility] 07-18-2024 Plan of care note Problem: Safety [...] at the bedside 7. Instruct patient/ patient graphic art sales representative about use of safety devices 8. Include patient/ patient graphic art sales representative in decisions related to safety Outcome: Progressing Note: Evaluation of progress towards goal: patient is injury free at this time. Problem: Knowledge Deficit Goal: Patient/patient graphic art sales representative demonstrates understanding of disease process, treatment [...] of =/> 25 or indicated by [facility] Rehab Assessment Goal: Patient should be free from fall Description: Interventions: 1. [place] to environment 2. Hourly rounds addressing the [...] non-skid footwear 11. Teach patient and patient graphic art sales representative to maintain environment for safety and [...] (cane, walker) within reach 19. Request patient graphic art sales representative bring adaptive equipment/mobility aids from home or obtain and provide as needed 20. Consult pharmacy regarding effects of med's affecting mobility, cognition, and alternatives 21. Obtain physician order for PT if risk factors associated with mobility are present 22. Obtain physician order for OT as appropriate 23. Utilize diversional activities 24. Educate patient and patient graphic art sales representative how to maintain a safe environment during visitation times (notify nurse prior to leaving bedside) 25. Consider appropriateness of medical or non-medical technologist microbiology 26. Set up voiding schedule as appropriate (every 2 hours) Outcome: Progressing Note: Evaluation of progress towards goal: Patient is free from falls at this time. [facility] 07-18-2024 Progress note Formatting of t his note might be different from the original. DISCHARGE PLANNING NOTE Referral sent to [facility] (P# [phone] ; F# [phone]) [facility] 07-18-2024 Telephone encounter Note Patient mailbox is full unable to leave message [facility] 07-18-2024 Progress note Formatting of t his note is different from the original. Images from the original note were not included. DISCHARGE PLANNING NOTE Discussed patient today during rounds. Patient's requested updates be sent to [facility]. Tasked [facility] to send. Leadership team aware as well as floor nurse. Barriers- acceptance, auth. Services Requested: Services Requested Patient expects to be discharged to:: home vs snf Patient Goals: Goals: Goals (pt-stated) Evaluation of progress towards goal: TBD-pending PT/OT eval - NANCY PARRISH 07/18/24 10:30 AM Still awaiting response from [facility] if they can accept patient. Leadership team aware. Floor mgr has spoken with family to update them. - NANCY PARRISH 07/18/24 2:50 PM [employer] [facility] 07-18-2024 Telephone encounter Note Patient returned your call and can be reached at: Call patient at: on cell [phone] (home) [phone] (cell) [facility] 07-18-2024 Telephone encounter Note -LVMTCB We are unable to assist in this matter. Pt last seen 04/2022 [facility] 07-18-2024 Miscellaneous Notes -LVMTCB We are unable to assist in this matter. Pt last seen 04/2022 [facility] is [facility] help with getting [facility] Please call pts [phone] documented in this encounter [facility] 07-17-2024 Plan of care note [...] at the bedside 7. Instruct patient/ patient graphic art sales representative about use of safety devices 8. Include patient/ patient graphic art sales representative in decisions related to safety Outcome: [...] of =/> 25 or indicated by [facility] Rehab Assessment Goal: Patient should be free from fall Description: Interventions: 1. [place] to environment 2. Hourly rounds addressing the [...] non-skid footwear 11. Teach patient and patient graphic art sales representative to maintain environment for safety and [...] (cane, walker) within reach 19. Request patient graphic art sales representative bring adaptive equipment/mobility aids from home or obtain and provide as needed 20. Consult pharmacy regarding effects of med's affecting mobility, cognition, and alternatives 21. Obtain physician order for PT if risk factors associated with mobility are present 22. Obtain physician order for OT as appropriate 23. Utilize diversional activities 24. Educate patient and patient graphic art sales representative how to maintain a safe environment during visitation times (notify nurse prior to leaving bedside) 25. Consider appropriateness of medical or non-medical technologist microbiology 26. Set up voiding schedule as appropriate (every 2 hours) Outcome: Progressing Note: Evaluation of progress towards goal: Patient will remain free from falls. [facility] 07-17-2024 Progress note Formatting of t his note might be different from the original. DISCHARGE PLANNING NOTE Referral sent to. [facility] (P# [phone] ; F# [phone], ) [facility] 07-17-2024 Progress note Formatting of t his [...] 6 Clicks: Basic Mobility Raw Score: 20 [facility] G Code Modifier: CJ Patient Response to Treatment: Progressing toward goals Assessment Patient Assessment Patient Response to Treatment: Progressing toward goals Visit RN Communication: Yes Medical Record Reviewed: Yes PT Type of Visit: Treatment Precautions Activity: ok for therapy per RN Lorna Equipment: gait belt and chair alarm Telemetry/Horticultural Farm Manager: Yes Oxygen Used: room air Other: fall [...] Goal: Patient will perform stairs/curb with Modified [place] Dates: Start: 07/13/24 Expected End: 07/27/24 Description: __flight___steps,__x1___hand rails Goal Description: Disciplines: PT Problem: Standing Balance Dates: Start: 07/13/24 Disciplines: PT Goal: Improve balance to good Dates: Start: 07/13/24 Expected End: 07/27/24 Description: Without UE support Disciplines: PT Outcomes Date/Time User Outcome 07/17/24 1443 Vinod Vaca PTA Progressing Goal Note filed on 07/17/241442 by Vinod Vaca PTA Evaluation of progress [...] problems. Principal Problem: Dementia with behavioral disturbance ([facility]) Active Problems: Altered mental status Status post colostomy, follow-up exam ([facility]) Cosigned by Briana Nuno PT at 07/18/2024 7:18 AM EST Associated attestation - Briana Nuno PT - 07/18/2024 7:18 AM EST I have reviewed and agree with this note and education documentation for this visit. [facility] [employer] 07-17-2024 Progress note Formatting of t his [...] [place] Equipment: gait belt and chair alarm Telemetry/Horticultural Farm Manager: Yes Oxygen Used: room air Other: fall [...] User Outcome 07/17/24 1439 EN Hogan Progressing Problem: Bathing LB Dates: Start: 07/13/24 [...] User Outcome 07/17/24 1439 EN Hogan Progressing Problem: Dressing LB Dates: Start: 07/13/24 [...] Date/Time User Outcome 07/17/24 1439 Yoanna Han-Mahoney, MARINATOR/L Progressing Problem: Standing Balance Dates: Start: 07/13/24 Disciplines: OT Goal: Improve balance to normal Dates: Start: 07/13/24 Expected End: 08/13/24 Description: Normal dynamic balance. Disciplines: OT Outcomes Date/Time User Outcome 07/17/24 1439 Yoanna Han-Mahoney, MARINATOR/L Progressing Problem: Toilet Transfers Dates: Start: 07/13/24 Disciplines: OT Goal: Patient will perform toilet transfers Independently Dates: Start: 07/13/24 Expected End: 08/13/24 Description: Goal Description: Disciplines: OT Outcomes Date/Time User Outcome 07/17/24 1439 Yoanna Han-Mahoney, MARINATOR/L Progressing Problem: Toileting Dates: Start: 07/13/24 Disciplines: OT Goal: Patient will perform toileting Independently Dates: Start: 07/13/24 Expected End: 08/13/24 Description: Goal Description: Disciplines: OT Outcomes Date/Time User Outcome 07/17/24 1439 Yoanna Han-Mahoney, MARINATOR/L Progressing Problem: Transfers Dates: Start: 07/13/24 Disciplines: OT Goal: Patient will perform transfers Independently Dates: Start: 07/13/24 Expected End: 08/13/24 Description: Goal Description: Disciplines: OT Outcomes Date/Time User Outcome 07/17/24 1439 EN Hogan Progressing Occupational Therapy Care Plan (Resolved) There are no resolved problems. Principal Problem: Dementia with behavioral disturbance ([facility]) Active Problems: Altered mental status Status post colostomy, follow-up exam ([facility]) Cosigned by MAYNOR Navarro/Jerome at 07/17/2024 3:03 PM EST Associated attestation - Lucie Olivarez OTR/Jerome - 07/17/2024 3:03 PM EST I have reviewed and agree with this note and education documentation for this visit. [facility] 07-17-2024 Telephone encounter Note [facility] and is [facility] help with getting [facility] Please call pts [phone] [facility] 07-17-2024 Plan of care note [...] at the bedside 7. Instruct patient/ patient graphic art sales representative about use of safety devices 8. Include patient/ patient graphic art sales representative in decisions related to safety Outcome: Progressing Note: Evaluation of progress towards goal: Patient is injury free at this time. Problem: Knowledge Deficit Goal: Patient/patient graphic art sales representative demonstrates understanding of disease process, treatment [...] Score of =/> [facility] Goal: Patient should be free from fall Description: Interventions: 1. [place] to environment 2. Hourly rounds addressing the [...] non-skid footwear 11. Teach patient and patient graphic art sales representative to maintain environment for safety and [...] (cane, walker) within reach 19. Request patient graphic art sales representative bring adaptive equipment/mobility aids from home or obtain and provide as needed 20. Consult pharmacy regarding effects of med's affecting mobility, cognition, and alternatives 21. Obtain physician order for PT if risk factors associated with mobility are present 22. Obtain physician order for OT as appropriate 23. Utilize diversional activities 24. Educate patient and patient graphic art sales representative how to maintain a safe environment during visitation times (notify nurse prior to leaving bedside) 25. Consider appropriateness of medical or non-medical technologist microbiology 26. Set up voiding schedule as appropriate (every 2 hours) Outcome: Progressing Note: Evaluation of progress towards goal: Patient is free from falls at this time. [facility] 07-17-2024 Progress note Formatting of t his note might be different from the original. DISCHARGE PLANNING NOTE fax referral to [facility] to [phone] shannan Shah [facility] 07-17-2024 Progress note Formatting of t his note is different from the original. Images from the original note were not included. DISCHARGE PLANNING NOTE Discussed patient today during rounds. Plan- IPR/TBI center. Barriers- acceptance, auth. This typewriter ribbon winder called both reviewing facilities and left for admissions to see if they can accept. Asked them to call this typewriter ribbon winder back. Floor nurse and leadership team aware. Services Requested: Services Requested Patient expects to be discharged to:: home vs snf Patient Goals: Goals: Goals (pt-stated) Evaluation of progress towards goal: TBD-pending PT/OT eval - NANCY PARRISH 07/17/24 9:42 AM At this time we do not have an accepting TBI/IPR facility. This typewriter ribbon winder and flooring installer attempted to speak with patient's but she is not in the room. Also tried to call her but it went right to and her box is full. - NANCY PARRISH 07/17/24 1:43 PM [facility] called this typewriter ribbon winder since they don't respond in care[facility] and they can not accept patient. This typewriter ribbon winder and flooring installer spoke with patient's and patient's sister that [...] nurse. - NANCY PARRISH 07/17/24 2:45 PM [facility] Plan of care note Problem: [...] at the bedside 7. Instruct patient/ patient graphic art sales representative about use of safety devices 8. Include patient/ patient graphic art sales representative in decisions related to safety Outcome: Progressing Note: Evaluation of progress towards goal: Patient remains injury and fall free. Safety precautions in place: call light within reach, bed in lowest position, personal belongings within reach, oriented to environment, and non-slip footwear on. Problem: Knowledge Deficit Goal: Patient/patient graphic art sales representative demonstrates understanding of disease process, treatment [...] progress towards goal: Patient to discharge to [facility], awaiting an accepting facility. Problem: Neurological Deficit [...] of =/> 25 or indicated by [facility] Rehab Assessment Goal: Patient should be free from fall Description: Interventions: 1. [place] to environment 2. Hourly rounds addressing the [...] non-skid footwear 11. Teach patient and patient graphic art sales representative to maintain environment for safety and [...] (cane, walker) within reach 19. Request patient graphic art sales representative bring adaptive equipment/mobility aids from home or obtain and provide as needed 20. Consult pharmacy regarding effects of med's affecting mobility, cognition, and alternatives 21. Obtain physician order for PT if risk factors associated with mobility are present 22. Obtain physician order for OT as appropriate 23. Utilize diversional activities 24. Educate patient and patient graphic art sales representative how to maintain a safe environment during visitation times (notify nurse prior to leaving bedside) 25. Consider appropriateness of medical or non-medical technologist microbiology 26. Set up voiding schedule as appropriate (every 2 hours) Outcome: Progressing Note: Evaluation of progress towards goal: Patient remains injury and fall free. Safety precautions in place: call light within reach, bed in lowest position, personal belongings within reach, oriented to environment, and non-slip footwear on. [facility] 07-16-2024 Progress note Formatting of t his [...] Plan Speech Therapy Care Plan (Active) Template: ST - Rehab Speech Problem: Auditory Comprehension Dates: Start: 07/12/24 Disciplines: FOOD MOBILE DRIVER Goal: LTG: Patient will comprehend communication related to basic medical and social needs and utilize compensatory strategies to maintain safety in a functional living environment Dates: Start: 07/12/24 Expected End: 08/12/24 Disciplines: FOOD MOBILE DRIVER Goal: STG: Patient will answer complex yes/no questions with 90% accuracy with minimal cueing Dates: Start: 07/12/24 Expected End: 08/12/24 Disciplines: FOOD MOBILE DRIVER Outcomes Date/Time User Outcome 07/16/24 152Lauro BahConchita Rightjanice [facility] Progressing Goal: STG: Patient will complete 1-3 step commands with 90% accuracy with minimal cueing Dates: Start: 07/12/24 Expected End: 08/12/24 Disciplines: FOOD MOBILE DRIVER Outcomes Date/Time User Outcome 07/16/24 152Lauro Rileyjanice [facility] Progressing Goal: STG: Patient will complete simple, phrase level auditory comprehension tasks with 90% accuracy with minimal cueing Dates: Start: 07/12/24 Expected End: 08/12/24 Disciplines: FOOD MOBILE DRIVER Problem: Cognitive Linguistic Dates: Start: 07/12/24 Disciplines: FOOD MOBILE DRIVER Goal: LTG: Patient will display functional cognitive-linguistic skills to demonstrate appropriate communication and safety within daily activities in a functional living environment Dates: Start: 07/12/24 Expected End: 08/12/24 Disciplines: FOOD MOBILE DRIVER Goal: STG: Patient will demonstrate sustained attention by maintaining focus during a task for 10 minutes with minimal assistance Dates: Start: 07/12/24 Expected End: 08/12/24 Disciplines: FOOD MOBILE DRIVER Outcomes Date/Time User Outcome 07/16/24 [facility] Progressing Goal: STG: Patient will be appropriately oriented to person, place, time and situation with 90% accuracy with minimal cueing Dates: Start: 07/12/24 Expected End: 08/12/24 Disciplines: FOOD MOBILE DRIVER Goal: STG: Patient will recall information discussed during therapy session via retelling/answering questions with 90% accuracy with minimal cueing Dates: Start: 07/12/24 Expected End: 08/12/24 Disciplines: FOOD MOBILE DRIVER Problem: High Level Language Dates: Start: 07/12/24 Disciplines: FOOD MOBILE DRIVER Goal: LTG: Patient will demonstrate use of self-awareness, goal setting, planning, initiation, self-monitoring and problem solving during daily activities to improve safety and awareness in a functional living environment Dates: Start: 07/12/24 Expected End: 08/12/24 Disciplines: FOOD MOBILE DRIVER Goal: STG: Patient will sequence 4-6 steps to a task (verbal, written, pictures) with 90% accuracy with minimal cueing Dates: Start: 07/12/24 Expected End: 08/12/24 Disciplines: FOOD MOBILE DRIVER Goal: STG: Patient will provide 3 appropriate solutions to problems of daily living with 90% accuracy with minimal cueing Dates: Start: 07/12/24 Expected End: 08/12/24 Disciplines: FOOD MOBILE DRIVER Goal: STG: Patient will demonstrate functional problem solving and safety awareness with 90% accuracy in daily living tasks in order to increase safe interactions with environment and decrease assistance from caregivers Dates: Start: 07/12/24 Expected End: 08/12/24 Disciplines: FOOD MOBILE DRIVER Problem: Verbal Expression Dates: Start: 07/12/24 Disciplines: FOOD MOBILE DRIVER Goal: LTG: Patient will utilize compensatory strategies to communicate wants and needs effectively to different conversational partners, maintain safety and participate socially in a functional living environment Dates: Start: 07/12/24 Expected End: 08/12/24 Disciplines: FOOD MOBILE DRIVER Goal: STG: Patient will respond to simple/complex open ended questions during activities of daily living with 90% accuracy with minimal cueing Dates: Start: 07/12/24 Expected End: 08/12/24 Disciplines: FOOD MOBILE DRIVER Goal: STG: Patient will maintain topic of conversation to decrease tangential speech with 90% accuracy with minimal cueing Dates: Start: 07/12/24 Expected End: 08/12/24 Disciplines: FOOD MOBILE DRIVER Outcomes Date/Time User Outcome 07/16/24 1520 Conchita Devi CCC-FOOD MOBILE DRIVER Progressing Speech Therapy Care Plan (Resolved) There are no resolved problems. Principal Problem: Dementia with behavioral disturbance ([facility]) Active Problems: Altered mental status Status post colostomy, follow-up exam ([facility]) [facility] 07-16-2024 Progress note Formatting of t his note might be different from the original. DISCHARGE PLANNING NOTE Resent referral in [facility] to [facility] P#[phone]; F#[phone] sent via secure fax to [phone] [facility] 07-16-2024 Plan of care note Problem: Safety [...] at the bedside 7. Instruct patient/ patient graphic art sales representative about use of safety devices 8. Include patient/ patient graphic art sales representative in decisions related to safety Outcome: Progressing Note: Evaluation of progress towards goal: pain will be adequally controlled to allow for rest and adl's Problem: Knowledge Deficit Goal: Patient/patient graphic art sales representative demonstrates understanding of disease process, treatment [...] of =/> 25 or indicated by [facility] Rehab Assessment Goal: Patient should be free from fall Description: Interventions: 1. [place] to environment 2. Hourly rounds addressing the [...] non-skid footwear 11. Teach patient and patient graphic art sales representative to maintain environment for safety and [...] (cane, walker) within reach 19. Request patient graphic art sales representative bring adaptive equipment/mobility aids from home or obtain and provide as needed 20. Consult pharmacy regarding effects of med's affecting mobility, cognition, and alternatives 21. Obtain physician order for PT if risk factors associated with mobility are present 22. Obtain physician order for OT as appropriate 23. Utilize diversional activities 24. Educate patient and patient graphic art sales representative how to maintain a safe environment during visitation times (notify nurse prior to leaving bedside) 25. Consider appropriateness of medical or non-medical technologist microbiology 26. Set up voiding schedule as appropriate (every 2 hours) Outcome: Progressing Note: Evaluation of progress towards goal: fall bundle [facility] 07-16-2024 Progress note Formatting of t his note might be different from the original. DISCHARGE PLANNING NOTE Clinical updates sent to Referrals sent to [facility] (P# [phone] ; F# [phone]) and to [facility] and to [facility] [employer] 07-16-2024 Progress note Formatting of t his note might be different from the original. DISCHARGE PLANNING NOTE Referral sent to. [facility] Via secure fax to [phone]. This is theor fax per phone call to facility. P#[phone]. Provider not in [employer]. [employer] 07-16-2024 Progress note Formatting of t his note might be different from the original. DISCHARGE PLANNING NOTE Discharge plan- TBD waiting to hear from TBI/IPR who can accept out of the reviewing facilities. [facility] called this typewriter ribbon winder and will call his to discuss. If they are able to accept she would owe private pay for room and board and money is due up front. Updated leadership team and floor nurse. - NANCY PARRISH 07/16/24 8:50 AM Discussed patient today during rounds. Called [facility] and left a for admissions to see if they can accept. Awaiting responses from the other facilities to respond. Barriers- acceptance, auth. - NANCY PARRISH 07/16/24 10:58 AM Called admissions at [facility] and [facility] and left VM asking them if they can accept and to call this typewriter ribbon winder back. Left callback #. - NANCY PARRISH 07/16/24 11:05 AM Still awaiting responses from all reviewing IPR this time. Leadership aware. Called [facility] and spoke with admissions and they will review. Also called [facility] and left another VM. Both in [place] are still reviewing at this time. - NANCY PARRISH 07/16/24 1:39 PM Spoke with patient and to update them that at this time we are awaiting responses from 3 facilities. Leadership aware. - NANCY PARRISH 07/16/24 3:45 PM [employer] 07-16-2024 Plan of care note Problem: Safety [...] at the bedside 7. Instruct patient/ patient graphic art sales representative about use of safety devices 8. Include patient/ patient graphic art sales representative in decisions related to safety Outcome: Progressing Note: Evaluation of progress towards goal: Patient remains injury and fall free. Safety precautions in place: call light within reach, bed in lowest position, personal belongings within reach, oriented to environment, and non-slip footwear on. Problem: Knowledge Deficit Goal: Patient/patient graphic art sales representative demonstrates understanding of disease process, treatment [...] Collaborate with ancillary departments 14. Include patient/patient graphic art sales representative in decisions related to anxiety Outcome: Progressing Note: Evaluation of progress towards goal: Patient's anxiety appears to be at manageable level. Problem: Moderate - High Risk Fall Score Description: Gallegos Fall Score of =/> 25 or indicated by [facility] Assessment Goal: Patient should be free from fall Description: Interventions: 1. [place] to environment 2. Hourly rounds addressing the [...] non-skid footwear 11. Teach patient and patient graphic art sales representative to maintain environment for safety and [...] (cane, walker) within reach 19. Request patient graphic art sales representative bring adaptive equipment/mobility aids from home or obtain and provide as needed 20. Consult pharmacy regarding effects of med's affecting mobility, cognition, and alternatives 21. Obtain physician order for PT if risk factors associated with mobility are present 22. Obtain physician order for OT as appropriate 23. Utilize diversional activities 24. Educate patient and patient graphic art sales representative how to maintain a safe environment during visitation times (notify nurse prior to leaving bedside) 25. Consider appropriateness of medical or non-medical technologist microbiology 26. Set up voiding schedule as appropriate (every 2 hours) Outcome: Progressing Note: Evaluation of progress towards goal: Patient remains injury and fall free. Safety precautions in place: call light within reach, bed in lowest position, personal belongings within reach, oriented to environment, and non-slip footwear on. [facility] 07-15-2024 Plan of care note Problem: Safety [...] at the bedside 7. Instruct patient/ patient graphic art sales representative about use of safety devices 8. Include patient/ patient graphic art sales representative in decisions related to safety Outcome: [...] of =/> 25 or indicated by [facility] Assessment Goal: Patient should be free from fall Description: Interventions: 1. [place] to environment 2. Hourly rounds addressing the [...] non-skid footwear 11. Teach patient and patient graphic art sales representative to maintain environment for safety and [...] (cane, walker) within reach 19. Request patient graphic art sales representative bring adaptive equipment/mobility aids from home or obtain and provide as needed 20. Consult pharmacy regarding effects of med's affecting mobility, cognition, and alternatives 21. Obtain physician order for PT if risk factors associated with mobility are present 22. Obtain physician order for OT as appropriate 23. Utilize diversional activities 24. Educate patient and patient graphic art sales representative how to maintain a safe environment during visitation times (notify nurse prior to leaving bedside) 25. Consider appropriateness of medical or non-medical technologist microbiology 26. Set up voiding schedule as appropriate (every 2 hours) Outcome: Progressing Note: Evaluation of progress towards goal: Pt is free from falls. [employer] 07-15-2024 Plan of care note Problem: Safety [...] at the bedside 7. Instruct patient/ patient graphic art sales representative about use of safety devices 8. Include patient/ patient graphic art sales representative in decisions related to safety Outcome: Progressing Note: Evaluation of progress towards goal: Proper identifiers used with patient care and medication administration. Remains free of injury during shift Problem: Knowledge Deficit Goal: Patient/patient graphic art sales representative demonstrates understanding of disease process, treatment [...] Collaborate with ancillary departments 14. Include patient/patient graphic art sales representative in decisions related to anxiety Outcome: Progressing Note: Evaluation of progress towards goal: Patient verbalizes a tolerable anxiety level and remains free of signs and symptoms of anxiety. Will continue to explain treatment plan and monitor for changes in anxiety levels. Problem: Moderate - High Risk Fall Score Description: Gallegos Fall Score of =/> 25 or indicated by [facility] Assessment Goal: Patient should be free from fall Description: Interventions: 1. [place] to environment 2. Hourly rounds addressing the [...] non-skid footwear 11. Teach patient and patient graphic art sales representative to maintain environment for safety and [...] (cane, walker) within reach 19. Request patient graphic art sales representative bring adaptive equipment/mobility aids from home or obtain and provide as needed 20. Consult pharmacy regarding effects of med's affecting mobility, cognition, and alternatives 21. Obtain physician order for PT if risk factors associated with mobility are present 22. Obtain physician order for OT as appropriate 23. Utilize diversional activities 24. Educate patient and patient graphic art sales representative how to maintain a safe environment during visitation times (notify nurse prior to leaving bedside) 25. Consider appropriateness of medical or non-medical technologist microbiology 26. Set up voiding schedule as appropriate (every 2 hours) Outcome: Progressing Note: Evaluation of progress towards goal: Call light within reach. Remains free of fall or injury. Environment free of clutter. [employer] 2024 Plan of care note Problem: Safety [...] at the bedside 7. Instruct patient/ patient graphic art sales representative about use of safety devices 8. Include patient/ patient graphic art sales representative in decisions related to safety Outcome: Progressing Note: Evaluation of progress towards goal: pain will be controlled to allow for rest and adl's Problem: Knowledge Deficit Goal: Patient/patient graphic art sales representative demonstrates understanding of disease process, treatment [...] Collaborate with ancillary departments 14. Include patient/patient graphic art sales representative in decisions related to anxiety Outcome: Progressing Note: Evaluation of progress towards goal: listen and reassuring Problem: Moderate - High Risk Fall Score Description: Gallegos Fall Score of =/> 25 or indicated by [facility] Assessment Goal: Patient should be free from fall Description: Interventions: 1. [place] to environment 2. Hourly rounds addressing the [...] non-skid footwear 11. Teach patient and patient graphic art sales representative to maintain environment for safety and [...] (cane, walker) within reach 19. Request patient graphic art sales representative bring adaptive equipment/mobility aids from home or obtain and provide as needed 20. Consult pharmacy regarding effects of med's affecting mobility, cognition, and alternatives 21. Obtain physician order for PT if risk factors associated with mobility are present 22. Obtain physician order for OT as appropriate 23. Utilize diversional activities 24. Educate patient and patient graphic art sales representative how to maintain a safe environment during visitation times (notify nurse prior to leaving bedside) 25. Consider appropriateness of medical or non-medical technologist microbiology 26. Set up voiding schedule as appropriate (every 2 hours) Outcome: Progressing Note: Evaluation of progress towards goal: fallbundle [employer] 2024 Progress note Formatting of t his note might be different from the original. DISCHARGE PLANNING NOTE Referrals sent to [facility] (P# [phone] ; F# [phone]) and to [facility] and to [facility] and [facility] p#: [phone] f#: [phone] [employer] 2024 Progress note Formatting of t his note might be different from the original. DISCHARGE PLANNING NOTE Follow-up Discharge Planning Progress Note Per RN during discharge transition rounds, barriers to discharge are: Accepting acute inpatient rehabilitation center. Discharge Plan: Post Commander followed up with patient, spouse and patient sister at bedside. Updated, [facility], not accepting, not in network with patient [...] Discussed lower levels of care such as [facility] and Home care. Patient spouse and sister verbalized understanding. Choices received. [facility] tasked to send referrals. Attempted to contact [facility], admission office closed on weekend. Care Navigation will continue to follow for any discharge needs. - Shweta Delgado RN 07/14/24 1:22 PM [employer] 07-13-2024 Plan of care note Problem: Safety [...] at the bedside 7. Instruct patient/ patient graphic art sales representative about use of safety devices 8. Include patient/ patient graphic art sales representative in decisions related to safety Outcome: Progressing Note: Evaluation of progress towards goal: Proper identifiers used with patient care and medication administration. Remains free of injury during shift Problem: Knowledge Deficit Goal: Patient/patient graphic art sales representative demonstrates understanding of disease process, treatment [...] Collaborate with ancillary departments 14. Include patient/patient graphic art sales representative in decisions related to anxiety Outcome: Progressing Note: Evaluation of progress towards goal: Patient remains free of signs and symptoms of anxiety. Will continue to explain treatment plan and monitor for changes in anxiety levels. Problem: Moderate - High Risk Fall Score Description: Gallegos Fall Score of =/> 25 or indicated by [facility] Assessment Goal: Patient should be free from fall Description: Interventions: 1. [place] to environment 2. Hourly rounds addressing the [...] non-skid footwear 11. Teach patient and patient graphic art sales representative to maintain environment for safety and [...] (cane, walker) within reach 19. Request patient graphic art sales representative bring adaptive equipment/mobility aids from home or obtain and provide as needed 20. Consult pharmacy regarding effects of med's affecting mobility, cognition, and alternatives 21. Obtain physician order for PT if risk factors associated with mobility are present 22. Obtain physician order for OT as appropriate 23. Utilize diversional activities 24. Educate patient and patient graphic art sales representative how to maintain a safe environment during visitation times (notify nurse prior to leaving bedside) 25. Consider appropriateness of medical or non-medical technologist microbiology 26. Set up voiding schedule as appropriate (every 2 hours) Outcome: Progressing Note: Evaluation of progress towards goal: Call light within reach. Remains free of fall or injury. Environment free of clutter. Problem: Safety - Medical Restraint Goal: Remains free of injury from restraints (Restraint for Interference with Flavor Maker) Description: INTERVENTIONS: 1. Determine that other, less [...] Free from restraint(s) (Restraint for Interference with Flavor Maker) Description: INTERVENTIONS: 1. ONCE/SHIFT or MINIMUM Q12H: [...] safety; individualizes the safety outcome Outcome: Completed [employer] 07-13-2024 Progress note Formatting of t his note might be different from the original. Per Lesia VILLANUEVA patient's and sister were very upset that [facility] did not accept patient. They declined to offer any other choices for facilities to her at this time. Lesia encouraged them to allow her to make referrals to some TBI facilities at [facility] and in [place] but at this time they are angry that [facility] did not accept patient. Post Commander will request SW follow up with them in the morning to obtain choices to continue developing a transition of care plan. [facility] 07-13-2024 Progress note Formatting of t his note might be different from the original. DISCHARGE PLANNING NOTE Referral sent to [facility] P#[phone]; F#[phone]); [facility], a division of [facility] P# [phone] [calling report];/[facility] (P# [calling report]; F# ) [facility] 07-13-2024 Progress note Formatting of t his note might be different from the original. DISCHARGE PLANNING NOTE Per RN during discharge transition rounds, barriers to discharge are: Telesitter, PMR re-eval, Seroquel dose adjustment. Discharge Plan: IPR for TBI rehab. PT/OT recommended IPR. CN met with and sister Ewa. wants a referral sent [facility]. CN discussed discharge and making referrals to other TBI/ IPR rehabs in the state, and sister stated they are putting all their zak in [facility] being able to accept the patient. Print Binding And Finishing Worker will continue to follow for any discharge needs. - Lesia Caba RN 07/13/24 12:18 PM Addendum: [facility] is not in network with patients [employer]. gave CN two more choices : [facility] and [facility] re[facility]. [facility] tasked to send referrals. and sister are calling insurance to ask about a one time contract to [facility]. Ethel , [facility] rep, stopped in to talk to and sister. - Lesia Caba RN 07/13/24 2:10 PM Addendum: Patient's and sister asked CN to listen and talk to insurance counselor regarding a one time approval for the IPR: [facility]. Proof Passer Xiomy with [employer] stated attending or managing physician needs to document patient's health status and progression, information on why the patient needs to go this specific facility for rehab, include diagnosis codes and services codes. Fax: Prior Auth Request to [phone] attn: Prior Auth Request at [facility]. CN sent pic chat to Dr. Nichol [...] - Lesia Caba RN 07/13/24 3:51 PM [facility] 07-13-2024 Progress note Formatting of t his note might be different from the original. DISCHARGE PLANNING NOTE Referral to [facility] (P# ; F# ) [email or web address] 07-13-2024 Progress note Formatting of t [...] reflux disease) High cholesterol Perforated sigmoid colon ([facility]) Past Surgical History: Procedure Laterality Date ARM EXPLORATION WITH REPAIR LACERATED ULNAR ARTERY Left 11/24/2019 Performed by Skyler Bowen MD at [facility] COLONOSCOPY [place] 3YEARS AGO COLOSTOMY CLOSURE Therapy Plan Need [...] early mobility guidelines. Equipment: gait belt, telemetry Telemetry/Horticultural Farm Manager: Yes Oxygen Used: room air Other: fall [...] and pants. Patient was able to static cover inspector front of toilet with contact guard. Patient was unable to void due to trouble with processing, safety and judgement. Home Management - IADL Other: patient has trouble executing tasks. patient was able to ambulate into bathroom with contact guard. patient required min assist to doff underware and pants. Patient was able to static cover inspector front of toilet with contact guard. Patient was unable to void due to trouble with processing, safety and judgement. Hearing / Speech / Vision Hearing: Within Functional Limits Speech: Within Functional Limits Cognition Overall Cognitive Status: Exceptions to Within Functional Limits Arousal/Alertness: Delayed responses to stimuli Orientation Level: Oriented to person (patient was not able to recognize , liliat was not able to recall date [...] problems. Principal Problem: Dementia with behavioral disturbance ([facility]) Active Problems: Altered mental status Status post colostomy, follow-up exam ([facility]) [facility] 07-13-2024 Progress note Formatting of [...] from admission 07/06 as a transfer from [facility] for neurological work up. Patient diagnosed with early onset dementia 2022, per spouse report after assisted and med changes cognitive status had improved and stabilized prior to fall in May 2024. 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 Pt discharged to inpatient treatment facility and returned to [facility] for scheduled MRI. 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 Principal Problem: Dementia with behavioral disturbance ([facility]) Active Problems: Altered mental status Status post colostomy, follow-up exam ([facility]) [facility] 07-12-2024 Plan of care note Problem: Safety [...] at the bedside 7. Instruct patient/ patient graphic art sales representative about use of safety devices 8. Include patient/ patient graphic art sales representative in decisions related to safety Outcome: Progressing Note: Evaluation of progress towards goal: Patient remains injury and fall free. Safety precautions in place: call light within reach, bed in lowest position, personal belongings within reach, oriented to environment, and non-slip footwear on. Problem: Knowledge Deficit Goal: Patient/patient graphic art sales representative demonstrates understanding of disease process, treatment [...] Collaborate with ancillary departments 14. Include patient/patient graphic art sales representative in decisions related to anxiety Outcome: Progressing Note: Evaluation of progress towards goal: Patient's has at bedside to help with spells of anxiety. Problem: Moderate - High Risk Fall Score Description: Gallegos Fall Score of =/> 25 or indicated by [facility] Assessment Goal: Patient should be free from fall Description: Interventions: 1. [place] to environment 2. Hourly rounds addressing the [...] non-skid footwear 11. Teach patient and patient graphic art sales representative to maintain environment for safety and [...] (cane, walker) within reach 19. Request patient graphic art sales representative bring adaptive equipment/mobility aids from home or obtain and provide as needed 20. Consult pharmacy regarding effects of med's affecting mobility, cognition, and alternatives 21. Obtain physician order for PT if risk factors associated with mobility are present 22. Obtain physician order for OT as appropriate 23. Utilize diversional activities 24. Educate patient and patient graphic art sales representative how to maintain a safe environment during visitation times (notify nurse prior to leaving bedside) 25. Consider appropriateness of medical or non-medical technologist microbiology 26. Set up voiding schedule as appropriate (every 2 hours) Outcome: Progressing Note: Evaluation of progress towards goal: Patient remains injury and fall free. Safety precautions in place: call light within reach, bed in lowest position, personal belongings within reach, oriented to environment, and non-slip footwear on. Problem: Safety - Medical Restraint Goal: Remains free of injury from restraints (Restraint for Interference with Flavor Maker) Description: INTERVENTIONS: 1. Determine that other, less [...] Free from restraint(s) (Restraint for Interference with Flavor Maker) Description: INTERVENTIONS: 1. ONCE/SHIFT or MINIMUM Q12H: [...] nutrition and hydration, hygiene, ROM, elimination needs [employer] 07-12-2024 Progress note Formatting of t his note might be different from the original. DISCHARGE PLANNING NOTE Per RN during discharge transition rounds, barriers to discharge are: PMR consult today, 2 point restraints, telesitter Discharge Plan: TBD. PMR is requesting PT/OT notes. Will wait for therapy input. not available this afternoon. CN escalated this case to CN leadership. Print Binding And Finishing Worker will continue to follow for any discharge needs. - Lesia Caba RN 07/12/24 3:24 PM [facility] 07-12-2024 Plan of care note Problem: Safety [...] at the bedside 7. Instruct patient/ patient graphic art sales representative about use of safety devices 8. Include patient/ patient graphic art sales representative in decisions related to safety Outcome: Progressing Note: Evaluation of progress towards goal: Patient remains injury free at present time. Safe environment provided and maintained. Medications administered using 5 rights. Problem: Knowledge Deficit Goal: Patient/patient graphic art sales representative demonstrates understanding of disease process, treatment [...] Collaborate with ancillary departments 14. Include patient/patient graphic art sales representative in decisions related to anxiety Outcome: Progressing Note: Evaluation of progress towards goal: Patient has family at bedside assisting with anxiety. Problem: Safety - Medical Restraint Goal: Remains free of injury from restraints (Restraint for Interference with Flavor Maker) Description: INTERVENTIONS: 1. Determine that other, less [...] Free from restraint(s) (Restraint for Interference with Flavor Maker) Description: INTERVENTIONS: 1. ONCE/SHIFT or MINIMUM Q12H: [...] assess q2 restraints, qshift assessed for necessity. [employer] [facility] 07-12-2024 Progress note Formatting of t his [...] continue to follow along. Prognosis Services: Skilled FOOD MOBILE DRIVER services to address the above deficits Prognosis/Potential: [...] Plan Speech Therapy Care Plan (Active) Template: [facility] Reh Speech Problem: Auditory Comprehension Dates: Start: 07/12/24 Disciplines: FOOD MOBILE DRIVER Goal: LTG: Patient will comprehend communication related to basic medical and social needs and utilize compensatory strategies to maintain safety in a functional living environment Dates: Start: 07/12/24 Expected End: 08/12/24 Disciplines: FOOD MOBILE DRIVER Goal: STG: Patient will answer complex yes/no questions with 90% accuracy with minimal cueing Dates: Start: 07/12/24 Expected End: 08/12/24 Disciplines: FOOD MOBILE DRIVER Goal: STG: Patient will complete 1-3 step commands with 90% accuracy with minimal cueing Dates: Start: 07/12/24 Expected End: 08/12/24 Disciplines: FOOD MOBILE DRIVER Goal: STG: Patient will complete simple, phrase level auditory comprehension tasks with 90% accuracy with minimal cueing Dates: Start: 07/12/24 Expected End: 08/12/24 Disciplines: FOOD MOBILE DRIVER Problem: Cognitive Linguistic Dates: Start: 07/12/24 Disciplines: FOOD MOBILE DRIVER Goal: LTG: Patient will display functional cognitive-linguistic skills to demonstrate appropriate communication and safety within daily activities in a functional living environment Dates: Start: 07/12/24 Expected End: 08/12/24 Disciplines: FOOD MOBILE DRIVER Goal: STG: Patient will demonstrate sustained attention by maintaining focus during a task for 10 minutes with minimal assistance Dates: Start: 07/12/24 Expected End: 08/12/24 Disciplines: FOOD MOBILE DRIVER Goal: STG: Patient will be appropriately oriented to person, place, time and situation with 90% accuracy with minimal cueing Dates: Start: 07/12/24 Expected End: 08/12/24 Disciplines: FOOD MOBILE DRIVER Goal: STG: Patient will recall information discussed during therapy session via retelling/answering questions with 90% accuracy with minimal cueing Dates: Start: 07/12/24 Expected End: 08/12/24 Disciplines: FOOD MOBILE DRIVER Problem: High Level Language Dates: Start: 07/12/24 Disciplines: FOOD MOBILE DRIVER Goal: LTG: Patient will demonstrate use of self-awareness, goal setting, planning, initiation, self-monitoring and problem solving during daily activities to improve safety and awareness in a functional living environment Dates: Start: 07/12/24 Expected End: 08/12/24 Disciplines: FOOD MOBILE DRIVER Goal: STG: Patient will sequence 4-6 steps to a task (verbal, written, pictures) with 90% accuracy with minimal cueing Dates: Start: 07/12/24 Expected End: 08/12/24 Disciplines: FOOD MOBILE DRIVER Goal: STG: Patient will provide 3 appropriate solutions to problems of daily living with 90% accuracy with minimal cueing Dates: Start: 07/12/24 Expected End: 08/12/24 Disciplines: FOOD MOBILE DRIVER Goal: STG: Patient will demonstrate functional problem solving and safety awareness with 90% accuracy in daily living tasks in order to increase safe interactions with environment and decrease assistance from caregivers Dates: Start: 07/12/24 Expected End: 08/12/24 Disciplines: FOOD MOBILE DRIVER Problem: Verbal Expression Dates: Start: 07/12/24 Disciplines: FOOD MOBILE DRIVER Goal: LTG: Patient will utilize compensatory strategies to communicate wants and needs effectively to different conversational partners, maintain safety and participate socially in a functional living environment Dates: Start: 07/12/24 Expected End: 08/12/24 Disciplines: FOOD MOBILE DRIVER Goal: STG: Patient will respond to simple/complex open ended questions during activities of daily living with 90% accuracy with minimal cueing Dates: Start: 07/12/24 Expected End: 08/12/24 Disciplines: FOOD MOBILE DRIVER Goal: STG: Patient will maintain topic of conversation to decrease tangential speech with 90% accuracy with minimal cueing Dates: Start: 07/12/24 Expected End: 08/12/24 Disciplines: FOOD MOBILE DRIVER Speech Therapy Care Plan (Resolved) There are no resolved problems. Principal Problem: Dementia with behavioral disturbance ([facility]) Active Problems: Altered mental status Status post colostomy, follow-up exam ([facility] 07-12-2024 Miscellaneous Notes Patient's sister, Ewa (not on HIPAA), called in asking to speak with Dr Price regarding patient's admission at [facility]. Patient had a tele consult with Dr Price on 07/03/24. Ewa would like to discuss some concerns that she has with Dr Price and possibly set up a hospital follow up. She is asking for a call back to further discuss [phone] CALLED AND SPOKE TO EWA TO LET HER KNOW THAT NOTHING CAN BE DISCUSSED WITH HER DUE TO HER NOT BEING ON PATIENTS HIPAA. EWA UNDERSTOOD Patient's spouse [phone] stated that they would like a call back to discuss [facility] stay. Called and spoke to patients and told her Dr Price seen Noé on a consultation on 07/03/24 and is no longer under his care. Dr Price consulted because he was meteorologist liaison and that the patient is still in [...] her insurance company. documented in this encounter [employer] 07-12-2024 Telephone encounter Note Patient's sister, Ewa (not on HIPAA), called in asking to speak with Dr Price regarding patient's admission at [facility]. Patient had a tele consult with Dr Price on 07/03/24. Ewa would like to discuss some concerns that she has with Dr Price and possibly set up a hospital follow up. She is asking for a call back to further discuss [phone] [facility] Telephone encounter Note CALLED AND SPOKE TO EWA TO LET HER KNOW THAT NOTHING CAN BE DISCUSSED WITH HER DUE TO HER NOT BEING ON PATIENTS HIPAA. EWA UNDERSTOOD [employer] 07-12-2024 Telephone encounter Note Patient's spouse [phone] stated that they would like a call back to discuss [facility] stay. [employer] 07-12-2024 Telephone encounter Note Called and spoke to patients and told her Dr Price seen Noé on a consultation on 07/03/24 and is no longer under his care. Dr Price consulted because he was meteorologist liaison and that the patient is still in [...] the care team and her insurance company. [employer] 07-12-2024 Consult note Associated Order (s): IP CONSULT TO PHYSICAL MEDICINE REHAB Images from the original note were not included. PHYSICAL MEDICINE AND REHABILITATION CONSULT Date of Admission: 07/06/2024 7:28 AM Referring Physician: Nichol Heath MD PCP: JAE LOPEZ MD Chief Compliant: Principal Problem: Dementia with behavioral disturbance ([facility]) Active Problems: Altered mental status Status post colostomy, follow-up exam ([facility]) Reason for Consultation: Rehabilitation Candidacy and Rehab Hardware Trainer Physicians/Services Consulting Providers Provider Service Specialty Mina [...] reflux disease) High cholesterol Perforated sigmoid colon ([facility]) PSH Past Surgical History: Procedure Laterality Date ARM EXPLORATION WITH REPAIR LACERATED ULNAR ARTERY Left 11/24/2019 Performed by Skyler Bowen MD at [facility] COLONOSCOPY [place] 3YEARS AGO COLOSTOMY CLOSURE Allergies Allergies Allergen [...] mg/dL Cytology Collection Time: 07/10/24 9:39 AM [facility] [address] [place] [address] Cytology Consultation Patient Name:NOÉ JEFFERY:1965 (Age: 58)Gender:MTaken:07/10/2024Report ed:07/11/2024 16:49Physician(s):Arnulfo Haley M.D. ([phone])Copy To:Quinton Harrell M.D. Rec. #:[id number]: #[id number] Final Cytologic Diagnosis Cerebrospinal fluid: No malignant cells identified. 07/11/2024 Interpretation performed at [facility], [address] [place], [place] [address], License number: [id number].Electronically Signed Out By Derick Lorenz MD Additional Report(s): Flow Cytometry-Surg/BM/NG Date Reported: # Immunophenotyping antibodies tested: CD3, CD4, CD5, CD7, CD8, CD19, CD20, CD45, Avinger, and Lambda. Immunophenotyping Comment: Immunophenotyping has been used in this diagnostic evaluation. This test was developed and its performance characteristics determined by the [facility] Department. It has not been [...] MD Clinical History Dementia with behavioral disturbance ([facility]) F03.918, acute change in personality Gross Description Received was 2ml of clear colorless fluid unfixed labeled as Jeffery, CSF . Also received is one cytospin slide from Hematology. Source of Specimen Cerebrospinal fluid Non FUR OPERATOR ThinPrep, Cytospin Slide Fee Code(s): 1; 68507 VDRL, Spinal Fluid Collection Time: 07/10/24 9:39 [...] Assessment/Plan Principal Problem: Dementia with behavioral disturbance ([facility]) Active Problems: Altered mental status Status post colostomy, follow-up exam ([facility]) Acute mental status change patient also was [...] you for the referral. Nito Mirza MD [employer] Work Phone: 07-12-2024 Plan of care note Problem: Safety - Medical Restraint Goal: Remains free of injury from restraints (Restraint for Interference with Flavor Maker) Description: INTERVENTIONS: 1. Determine that other, less [...] Free from restraint(s) (Restraint for Interference with Flavor Maker) Description: INTERVENTIONS: 1. ONCE/SHIFT or MINIMUM Q12H: [...] nutrition and hydration, hygiene, ROM, elimination needs [employer] 07-12-2024 Progress note Formatting of t his note might be different from the original. BEHAVIORAL RESTRAINTS PROVIDER ONE HOUR [id number] EVALUATION NOTE Noé Jeffery was evaluated on [...] and others. Jackson Peterson PA-C 07/12/24 0058 [employer] Work Phone: 07-11-2024 Plan of care note [...] at the bedside 7. Instruct patient/ patient graphic art sales representative about use of safety devices 8. Include patient/ patient graphic art sales representative in decisions related to safety Outcome: Progressing Note: Evaluation of progress towards goal: Patient remains injury and fall free. Safety precautions in place: call light within reach, bed in lowest position, personal belongings within reach, oriented to environment, and non-slip footwear on. Problem: Knowledge Deficit Goal: Patient/patient graphic art sales representative demonstrates understanding of disease process, treatment [...] Collaborate with ancillary departments 14. Include patient/patient graphic art sales representative in decisions related to anxiety Outcome: Progressing Note: Evaluation of progress towards goal: Patient has at bedside aiding in assisting with anxiety. Problem: Moderate - High Risk Fall Score Description: Gallegos Fall Score of =/> 25 or indicated by [facility] Assessment Goal: Patient should be free from fall Description: Interventions: 1. [place] to environment 2. Hourly rounds addressing the [...] non-skid footwear 11. Teach patient and patient graphic art sales representative to maintain environment for safety and [...] (cane, walker) within reach 19. Request patient graphic art sales representative bring adaptive equipment/mobility aids from home or obtain and provide as needed 20. Consult pharmacy regarding effects of med's affecting mobility, cognition, and alternatives 21. Obtain physician order for PT if risk factors associated with mobility are present 22. Obtain physician order for OT as appropriate 23. Utilize diversional activities 24. Educate patient and patient graphic art sales representative how to maintain a safe environment during visitation times (notify nurse prior to leaving bedside) 25. Consider appropriateness of medical or non-medical technologist microbiology 26. Set up voiding schedule as appropriate (every 2 hours) Outcome: Progressing Note: Evaluation of progress towards goal: Patient remains injury and fall free. Safety precautions in place: call light within reach, bed in lowest position, personal belongings within reach, oriented to environment, and non-slip footwear on. [employer] [facility] 07-11-2024 Consult note Associated Order (s): IP CONSULT TO PSYCHIATRY PSYCHIATRIC EVALUATION No contraindications for seclusion No contraindications for restraint CHIEF COMPLAINT: Dementia with behavioral disturbance (CMS-HCC) Noé Jeffery is a 58 y.o. male who presents with Dementia with behavioral disturbance (CMS-HCC) .he is HISTORY OF PRESENT ILLNESS: The patient is a 58-year-old [place] male treatment at the [facility] for the patient has a substantial history of dyslipidemia, sleep apnea, type 2 diabetes mellitus, recent diagnosed history of early-onset Alzheimer's dementia, an epileptic disorder in remission, as well as a recent admission to [facility] for altered mental status. An MRI [...] discharged to a memory care unit or mcc that is well-versed in the treatment of [...] 11/24/2019 Performed by Skyler Bowen MD at [facility] 3YEARS AGO COLOSTOMY CLOSURE Medications Prior to [...] to a memory care unit or a mcc that is well-versed in management of memory [...] diversion. Mina Franks MD 07/11/2024 1:11 PM [facility] 07-11-2024 Progress note Formatting of t his note might be different from the original. DISCHARGE PLANNING NOTE Per RN during discharge transition rounds, barriers to discharge are: re-consulting psych today, telesitter and soft restraints, MRI and LP completed yesterday, patient behaviors are worse at night, unpredictable and confused. Discharge Plan: [facility] psych stated [facility] was sent a referral and they have declined. Waiting input from psych. [employer] Finishing Worker will continue to follow for any discharge needs. - Lesia Caba RN 07/11/24 12:06 PM Late entery: CN met with patient, Kari, and sister Ewa on Tuesday afternoon. and sister want the patient to go to a Traumatic Brain Injury rehab unit. CN began researching TBI Rehab units in the area, reported back to the and sister after finding TBI rehab units in [facility]. Sister asked for me to look in [facility]. and sister do not want any referrals send until they are able to meet with the neurologist again, sister wants to look into the TBI units in the [facility] herself before any referrals are sent. - Lesia Caba RN 07/12/24 8:11 AM [employer] 07-11-2024 Progress note Formatting of t his note might be different from the original. Referral sent to [facility] to assess for admission to that center's inpatient psychiatric unit. After a clinical review and screening was completed [facility] assessed patient as inappropriate for treatment at that facility. Will alert care team. - NANCY Martines 07/11/24 10:33 AM [employer] 07-11-2024 Progress note Formatting of t his note might be different from the original. DISCHARGE PLANNING NOTE Updates to [facility] [phone] [employer] 07-11-2024 Plan of care note Problem: Safety [...] at the bedside 7. Instruct patient/ patient graphic art sales representative about use of safety devices 8. Include patient/ patient graphic art sales representative in decisions related to safety Outcome: Progressing Note: Evaluation of progress towards goal: Patient remains injury free at present time. Safe environment provided and maintained. Medications administered using 5 rights. Problem: Knowledge Deficit Goal: Patient/patient graphic art sales representative demonstrates understanding of disease process, treatment [...] Collaborate with ancillary departments 14. Include patient/patient graphic art sales representative in decisions related to anxiety Outcome: Progressing Note: Evaluation of progress towards goal: Patient has at bedside assisting with anxiety. Problem: Moderate - High Risk Fall Score Description: Gallegos Fall Score of =/> 25 or indicated by [facility] Assessment Goal: Patient should be free from fall Description: Interventions: 1. [place] to environment 2. Hourly rounds addressing the [...] non-skid footwear 11. Teach patient and patient graphic art sales representative to maintain environment for safety and [...] (cane, walker) within reach 19. Request patient graphic art sales representative bring adaptive equipment/mobility aids from home or obtain and provide as needed 20. Consult pharmacy regarding effects of med's affecting mobility, cognition, and alternatives 21. Obtain physician order for PT if risk factors associated with mobility are present 22. Obtain physician order for OT as appropriate 23. Utilize diversional activities 24. Educate patient and patient graphic art sales representative how to maintain a safe environment during visitation times (notify nurse prior to leaving bedside) 25. Consider appropriateness of medical or non-medical technologist microbiology 26. Set up voiding schedule as appropriate (every 2 hours) Outcome: Progressing Note: Evaluation of progress towards goal: Patient currently free from falls, up standby. [facility] 07-11-2024 Plan of care note Problem: Safety [...] injury from restraints (Restraint for Interference with Flavor Maker) Description: INTERVENTIONS: 1. Determine that other, less [...] Free from restraint(s) (Restraint for Interference with Flavor Maker) Description: INTERVENTIONS: 1. ONCE/SHIFT or MINIMUM Q12H: [...] nutrition and hydration, hygiene, ROM, elimination needs [facility] 07-10-2024 Progress note Formatting of t his note might be different from the original. BEHAVIORAL RESTRAINTS PROVIDER ONE HOUR [id number] EVALUATION NOTE Noé Jeffery was evaluated on [...] and others. Jackson Peterson PA-C 07/11/24 0036 [facility] 07-10[facility]20[facility] Plan of care note Problem: [...] at the bedside 7. Instruct patient/ patient graphic art sales representative about use of safety devices 8. Include patient/ patient graphic art sales representative in decisions related to safety Outcome: [...] hygiene technique. 7. Identify and instruct patient/patient graphic art sales representative in use of appropriate isolation precautions for identified infection/symptoms. 8. Provide and discuss with patient/patient graphic art sales representative on educational MDRO sheet. 9. Encourage and monitor nutritional status daily and consult flight attendant/inflight manager if indicated. 10. Implement neutropenic guidelines as needed. Outcome: Progressing Note: Evaluation of progress towards goal: Patient remains free of any signs of infection. Signs and symptoms being monitor such as fevers, chills, warm/red areas. Problem: Knowledge Deficit Goal: Patient/patient graphic art sales representative demonstrates understanding of disease process, treatment [...] Collaborate with ancillary departments 14. Include patient/patient graphic art sales representative in decisions related to anxiety Outcome: Progressing Note: Evaluation of progress towards goal: Patient's anxiety is at manageable level. Problem: Safety - Medical Restraint Goal: Remains free of injury from restraints (Restraint for Interference with Flavor Maker) Description: INTERVENTIONS: 1. Determine that other, less [...] Free from restraint(s) (Restraint for Interference with Flavor Maker) Description: INTERVENTIONS: 1. ONCE/SHIFT or MINIMUM Q12H: [...] on patient's door 9. Provide patient/ patient graphic art sales representative with isolation education. Outcome: Progressing Note: Evaluation of progress towards goal: Discard single-use items. Clean reusable equipment. Wear gloves for direct and indirect patient care. Wash hands before and after care of patient. Problem: Moderate - High Risk Fall Score Description: Gallegos Fall Score of =/> 25 or [facility] Goal: Patient should be free from fall Description: Interventions: 1. [place] to environment 2. Hourly rounds addressing the [...] non-skid footwear 11. Teach patient and patient graphic art sales representative to maintain environment for safety and [...] (cane, walker) within reach 19. Request patient graphic art sales representative bring adaptive equipment/mobility aids from home or obtain and provide as needed 20. Consult pharmacy regarding effects of med's affecting mobility, cognition, and alternatives 21. Obtain physician order for PT if risk factors associated with mobility are present 22. Obtain physician order for OT as appropriate 23. Utilize diversional activities 24. Educate patient and patient graphic art sales representative how to maintain a safe environment during visitation times (notify nurse prior to leaving bedside) 25. Consider appropriateness of medical or non-medical technologist microbiology 26. Set up voiding schedule as appropriate (every 2 hours) Outcome: Progressing Note: Evaluation of progress towards goal: Patient remains injury and fall free. Safety precautions in place: call light within reach, bed in lowest position, personal belongings within reach, oriented to environment, and non-slip footwear on. [facility] 07-10-2024 Plan of care note [...] at the bedside 7. Instruct patient/ patient graphic art sales representative about use of safety devices 8. Include patient/ patient graphic art sales representative in decisions related to safety Outcome: [...] hygiene technique. 7. Identify and instruct patient/patient graphic art sales representative in use of appropriate isolation precautions for identified infection/symptoms. 8. Provide and discuss with patient/patient graphic art sales representative on educational MDRO sheet. 9. Encourage and monitor nutritional status daily and consult flight attendant/inflight manager if indicated. 10. Implement neutropenic guidelines as needed. Outcome: Progressing Note: Evaluation of progress towards goal: patient remains afebrile at this time Problem: Knowledge Deficit Goal: Patient/patient graphic art sales representative demonstrates understanding of disease process, treatment [...] Collaborate with ancillary departments 14. Include patient/patient graphic art sales representative in decisions related to anxiety Outcome: Progressing Note: Evaluation of progress towards goal: discussed w/ patient coping strategies & dietary changes that may aid in controlling stress & anxiety. Problem: Safety - Medical Restraint Goal: Remains free of injury from restraints (Restraint for Interference with Flavor Maker) Description: INTERVENTIONS: 1. Determine that other, less [...] Free from restraint(s) (Restraint for Interference with Flavor Maker) Description: INTERVENTIONS: 1. ONCE/SHIFT or MINIMUM Q12H: [...] on patient's door 9. Provide patient/ patient graphic art sales representative with isolation education. Outcome: Progressing Note: Evaluation of progress towards goal: patient remains afebrile at this time Problem: Moderate - High Risk Fall Score Description: Gallegos Fall Score of =/> 25 or indicated by [facility] Assessment Goal: Patient should be free from fall Description: Interventions: 1. [place] to environment 2. Hourly rounds addressing the [...] non-skid footwear 11. Teach patient and patient graphic art sales representative to maintain environment for safety and [...] (cane, walker) within reach 19. Request patient graphic art sales representative bring adaptive equipment/mobility aids from home or obtain and provide as needed 20. Consult pharmacy regarding effects of med's affecting mobility, cognition, and alternatives 21. Obtain physician order for PT if risk factors associated with mobility are present 22. Obtain physician order for OT as appropriate 23. Utilize diversional activities 24. Educate patient and patient graphic art sales representative how to maintain a safe environment during visitation times (notify nurse prior to leaving bedside) 25. Consider appropriateness of medical or non-medical technologist microbiology 26. Set up voiding schedule as appropriate (every 2 hours) Outcome: Progressing Note: Evaluation of progress towards goal: patient remains free of injury & verbalizes understanding of fall prevention; call light in reach [facility] 07-10-2024 Progress note Formatting of t his note might be different from the original. DISCHARGE PLANNING NOTE Per RN during discharge transition rounds, barriers to discharge are: MRI with sedation today, LP with sedation today, restraints removed after procedures today, assess as needed for restraints, re-consult psych. Discharge Plan: TBMagnus VILLANUEVA discussed case with colin Solorio SW Print Binding And Finishing Worker will continue to follow for any discharge needs. - Lesia Caba RN 07/10/24 3:16 PM [facility] 07-10-2024 Plan of care note 07/10/24 1145: Evaluated patient after his procedures, he is calm at this time and currently not threat to himself or staff therefore we will discontinue violent restraints. He is though pulling at his lines and IV so will place bilateral soft wrist restraints. We will re-evaluate as needed Nichol Heath MD [facility] 07-10-2024 Nurse Note Patient still off unit at this time 11:58 s/p sedated MRI & LP procedure. Per neurologist, Dr Johnson, patient needs to remain flat 1-2hrs & may have regular diet. Post Commander awaiting patient return to unit & per report 1:1 sitter remains at patient bedside. [facility] 07-10-2024 Procedure note Associated Ord er(s): Lumbar Puncture Post-Procedure Diagnose(s): Dementia with behavioral disturbance ([facility]) PROCEDURE: Lumbar Puncture Date/Time: 07/10/2024 9:58 AM [...] to verify the correct patient, procedure, equipment, landing support specialist and site/side marked as required. [...] Complications: none Arnulfo Haley MD PGY2 Neurology [facility] Cosigned by Zach Nails MD at 07/11/2024 12:41 AM EST Associated attestation - Zach Nails MD - 07/11/2024 12:41 AM EST Zach Nails MD It Administrator Dept of Neurology [facility] 07-10-2024 Procedure note Associated Ord er(s): Lumbar Puncture Post-Procedure Diagnose(s): Dementia with behavioral disturbance (CMS-HCC) PROCEDURE: Lumbar Puncture Date/Time: 07/10/2024 9:58 AM [...] to verify the correct patient, procedure, equipment, landing support specialist and site/side marked as required. [...] Complications: none Arnulfo Haley MD PGY2 Neurology [facility] Cosigned by Zach Nails MD at 07/11/2024 12:41 AM EST Associated attestation - Zach Nails MD - 07/11/2024 12:41 AM EST Zach Nails MD It Administrator Dept of Neurology [facility] documented in this encounter [facility] 07-10-2024 Nurse Note SPECIMENS X4 WERE COLLECTED, PROCESSED, AND SENT TO LAB BY DR. ARNULFO HALEY. [facility] 07-10-2024 Plan of care note Problem: [...] at the bedside 7. Instruct patient/ patient graphic art sales representative about use of safety devices 8. Include patient/ patient graphic art sales representative in decisions related to safety Outcome: [...] hygiene technique. 7. Identify and instruct patient/patient graphic art sales representative in use of appropriate isolation precautions for identified infection/symptoms. 8. Provide and discuss with patient/patient graphic art sales representative on educational MDRO sheet. 9. Encourage and monitor nutritional status daily and consult flight attendant/inflight manager if indicated. 10. Implement neutropenic guidelines as needed. Outcome: Progressing Note: Evaluation of progress towards goal: Skin integrity remains in stable condition; remains w/o ss of infection, fever, pain, or increased discomfort. Problem: Knowledge Deficit Goal: Patient/patient graphic art sales representative demonstrates understanding of disease process, treatment [...] of 0 - 24 or indicated by [facility] Assessment Goal: Patient should be free from fall Description: Interventions: 1. [place] to environment 2. Hourly rounds addressing the [...] non-skid footwear 11. Teach patient and patient graphic art sales representative to maintain environment for safety and [...] Collaborate with ancillary departments 14. Include patient/patient graphic art sales representative in decisions related to anxiety Outcome: [...] on patient's door 9. Provide patient/ patient graphic art sales representative with isolation education. Outcome: Progressing Note: Evaluation of progress towards goal: Skin integrity remains in stable condition; remains w/o ss of infection, fever, pain, or increased discomfort. Problem: Moderate - High Risk Fall Score Description: Gallegos Fall Score of =/> [facility] Goal: Patient should be free from fall Description: Interventions: 1. [place] to environment 2. Hourly rounds addressing the [...] non-skid footwear 11. Teach patient and patient graphic art sales representative to maintain environment for safety and [...] (cane, walker) within reach 19. Request patient graphic art sales representative bring adaptive equipment/mobility aids from home or obtain and provide as needed 20. Consult pharmacy regarding effects of med's affecting mobility, cognition, and alternatives 21. Obtain physician order for PT if risk factors associated with mobility are present 22. Obtain physician order for OT as appropriate 23. Utilize diversional activities 24. Educate patient and patient graphic art sales representative how to maintain a safe environment during visitation times (notify nurse prior to leaving bedside) 25. Consider appropriateness of medical or non-medical technologist microbiology 26. Set up voiding schedule as appropriate (every 2 hours) Outcome: Progressing Note: Evaluation of progress towards goal: Call light within reach. Remains free of fall or injury. Environment free of clutter. [facility] 07-09-2024 Progress note Formatting of t his note might be different from the original. BEHAVIORAL RESTRAINTS PROVIDER ONE HOUR [id number] EVALUATION NOTE Noé Jeffery was evaluated on [...] 07/10/24 0522 Jackson Peterson PA-C 07/10/24 0523 [facility] 07-09-2024 Plan of care note Problem: Safety [...] at the bedside 7. Instruct patient/ patient graphic art sales representative about use of safety devices 8. Include patient/ patient graphic art sales representative in decisions related to safety Outcome: [...] hygiene technique. 7. Identify and instruct patient/patient graphic art sales representative in use of appropriate isolation precautions for identified infection/symptoms. 8. Provide and discuss with patient/patient graphic art sales representative on educational MDRO sheet. 9. Encourage and monitor nutritional status daily and consult flight attendant/inflight manager if indicated. 10. Implement neutropenic guidelines as needed. Outcome: Progressing Note: Evaluation of progress towards goal: patient remains afebrile at this time Problem: Knowledge Deficit Goal: Patient/patient graphic art sales representative demonstrates understanding of disease process, treatment [...] of 0 - 24 or indicated by [facility] Re[facility] Assessment Goal: Patient should be free from fall Description: Interventions: 1. [place] to environment 2. Hourly rounds addressing the [...] non-skid footwear 11. Teach patient and patient graphic art sales representative to maintain environment for safety and [...] Collaborate with ancillary departments 14. Include patient/patient graphic art sales representative in decisions related to anxiety Outcome: [...] injury from restraints (Restraint for Interference with Flavor Maker) Description: INTERVENTIONS: 1. Determine that other, less [...] Free from restraint(s) (Restraint for Interference with Flavor Maker) Description: INTERVENTIONS: 1. ONCE/SHIFT or MINIMUM Q12H: [...] on patient's door 9. Provide patient/ patient graphic art sales representative with isolation education. Outcome: Progressing Note: Evaluation of progress towards goal: patient remains afebrile at this time [facility] 07-09-2024 Progress note Formatting of t his note might be different from the original. DISCHARGE PLANNING NOTE [facility] (P# [phone] ; F# [phone]) via [employer] [facility] 07-09-2024 Progress note Formatting of t his [...] . Thank you, Ethel Bueno RN, PRADEEP [email or web address] The patient's Clinical Indicators include: As above CDI RESPONSE TEXT: Patient has progression of dementia causing agitation, no evidence of metabolic or toxic encephalopathy. Query created by: Ethel Bueno on 07/09/2024 5:42 AM Electronically signed by: Lonnie Baker MD 07/09/2024 3:22 PM [facility] 07-09-2024 Progress note Formatting of t his note might be different from the original. DISCHARGE PLANNING NOTE Referral sent to [facility] (P# [phone] ; F# [phone]) via [facility] 07-09-2024 Progress note Formatting of t his [...] patient to return home. Psych SW following. Print Binding And Finishing Worker will continue to follow for any discharge needs. - Lesia Caba RN 07/09/24 1:11 [facility] Plan of care note Problem: Safety [...] at the bedside 7. Instruct patient/ patient graphic art sales representative about use of safety devices 8. Include patient/ patient graphic art sales representative in decisions related to safety Outcome: [...] hygiene technique. 7. Identify and instruct patient/patient graphic art sales representative in use of appropriate isolation precautions for identified infection/symptoms. 8. Provide and discuss with patient/patient graphic art sales representative on educational MDRO sheet. 9. Encourage and monitor nutritional status daily and consult flight attendant/inflight manager if indicated. 10. Implement neutropenic guidelines as needed. Outcome: Progressing Note: Evaluation of progress towards goal: monitor s/s of infection Problem: Knowledge Deficit Goal: Patient/patient graphic art sales representative demonstrates understanding of disease process, treatment [...] of 0 - 24 or indicated by [facility] Assessment Goal: Patient should be free from fall Description: Interventions: 1. [place] to environment 2. Hourly rounds addressing the [...] non-skid footwear 11. Teach patient and patient graphic art sales representative to maintain environment for safety and [...] Collaborate with ancillary departments 14. Include patient/patient graphic art sales representative in decisions related to anxiety Outcome: [...] injury from restraints (Restraint for Interference with Flavor Maker) Description: INTERVENTIONS: 1. Determine that other, less [...] Free from restraint(s) (Restraint for Interference with Flavor Maker) Description: INTERVENTIONS: 1. ONCE/SHIFT or MINIMUM Q12H: [...] goal: fall precautions in place, hourly rounding [facility] 07-08-2024 Progress note Formatting of t his note might be different from the original. BEHAVIORAL RESTRAINTS PROVIDER ONE HOUR [id number] EVALUATION NOTE Noé Jeffery was evaluated on [...] continue restraint/seclusion order: No Jackson Peterson PA-C 07/08/247 NIGHT07/09/24-3:31 AM Called to bedside after patient [...] and others. Jackson Peterson PA-C 07/09/24 0344 [facility] 07-08-2024 Progress note Formatting of t his note might be different from the original. [facility] NIGHT BEHAVIORAL RESTRAINTS PROVIDER ONE HOUR [id number] EVALUATION NOTE Noé Jeffery was evaluated on [...] and others. Jackson Peterson PA-C 07/08/24 0446 [facility] 07-08-2024 Plan of care note Problem: Safety [...] at the bedside 7. Instruct patient/ patient graphic art sales representative about use of safety devices 8. Include patient/ patient graphic art sales representative in decisions related to safety Outcome: [...] hygiene technique. 7. Identify and instruct patient/patient graphic art sales representative in use of appropriate isolation precautions for identified infection/symptoms. 8. Provide and discuss with patient/patient graphic art sales representative on educational MDRO sheet. 9. Encourage and monitor nutritional status daily and consult flight attendant/inflight manager if indicated. 10. Implement neutropenic guidelines as needed. Outcome: Progressing Note: Evaluation of progress towards goal: Patient has no infection at this time. Problem: Knowledge Deficit Goal: Patient/patient graphic art sales representative demonstrates understanding of disease process, treatment [...] of 0 - 24 or indicated by [facility] Assessment Goal: Patient should be free from fall Description: Interventions: 1. [place] to environment 2. Hourly rounds addressing the [...] non-skid footwear 11. Teach patient and patient graphic art sales representative to maintain environment for safety and [...] Collaborate with ancillary departments 14. Include patient/patient graphic art sales representative in decisions related to anxiety Outcome: Progressing Note: Evaluation of progress towards goal: Patient is able to manage anxiety level at this time, plan of care still ongoing. [facility] 07-07-2024 Plan of care note Problem: Safety [...] at the bedside 7. Instruct patient/ patient graphic art sales representative about use of safety devices 8. Include patient/ patient graphic art sales representative in decisions related to safety Outcome: [...] hygiene technique. 7. Identify and instruct patient/patient graphic art sales representative in use of appropriate isolation precautions for identified infection/symptoms. 8. Provide and discuss with patient/patient graphic art sales representative on educational MDRO sheet. 9. Encourage and monitor nutritional status daily and consult flight attendant/inflight manager if indicated. 10. Implement neutropenic guidelines as needed. Outcome: Progressing Note: Evaluation of progress towards goal: monitor s/s of infection, monitor labs, standard precautions Problem: Knowledge Deficit Goal: Patient/patient graphic art sales representative demonstrates understanding of disease process, treatment [...] be free from fall Description: Interventions: 1. [place] to environment 2. Hourly rounds addressing the [...] non-skid footwear 11. Teach patient and patient graphic art sales representative to maintain environment for safety and engage in all aspects of fall prevention program Outcome: Progressing Note: Evaluation of progress towards goal: fall precautions in place, hourly rounding, call light within reach [facility] 07-07-2024 Progress note Formatting of t his [...] by: Khalif Valerio MD 07/07/2024 7:10 AM [facility] 07-06-2024 Plan of care note Problem: Safety [...] at the bedside 7. Instruct patient/ patient graphic art sales representative about use of safety devices 8. Include patient/ patient graphic art sales representative in decisions related to safety Outcome: [...] hygiene technique. 7. Identify and instruct patient/patient graphic art sales representative in use of appropriate isolation precautions for identified infection/symptoms. 8. Provide and discuss with patient/patient graphic art sales representative on educational MDRO sheet. 9. Encourage and monitor nutritional status daily and consult flight attendant/inflight manager if indicated. 10. Implement neutropenic guidelines as needed. Outcome: Progressing Note: Evaluation of progress towards goal: Patient remains free of any signs of infection. Signs and symptoms being monitor such as fevers, chills, warm/red areas. Problem: Knowledge Deficit Goal: Patient/patient graphic art sales representative demonstrates understanding of disease process, treatment [...] of 0 - 24 or indicated by [facility] Re[facility] Assessment Goal: Patient should be free from fall Description: Interventions: 1. [place] to environment 2. Hourly rounds addressing the [...] non-skid footwear 11. Teach patient and patient graphic art sales representative to maintain environment for safety and [...] Description: INTERVENTIONS: 1. Encourage patient or legal graphic art sales representative to report early pain and ask [...] per policy 9. Teach patient or legal graphic art sales representative interventions for comforting Outcome: Completed Note: Evaluation of progress towards goal: Patient has no complaints of pain. Reassessed per policy. [facility] 07-06-2024 Progress note Formatting of t his note might be different from the original. An attempt was made to interview the patient today in the presence of his . The patient refused and asked the typewriter ribbon winder to leave stating that he does not want a psychiatric evaluation. Psychiatry will sign off. [employer] Work Phone: 07-06-2024 Progress note Formatting of t his note is different from the original. Images from the original note were not included. DISCHARGE PLANNING NOTE Post Commander met with patient, introduced self, and explained [...] medication assistance resources. PCP: JAE LOPEZ MD Pharmacy:[facility] PCP and pharmacy confirmed with patient. CN [...] - Jac Austin RN 07/06/24 4:01 PM [facility] 07-06-2024 Progress note Formatting of t his note might be different from the original. Called spouse and left message. Will await call back. - NANCY Martines 07/06/24 3:25 PM [facility] 07-06-2024 Progress note Formatting of t his [...] spouse. - NANCY Martines 07/06/24 11:02 AM [facility] 07-06-2024 Consult note Associated Order (s): IP CONSULT TO NEUROLOGY Images from the original note were not included. [facility] Neurology General Neurology Consult Note Primary Neurology service: [phone] Chief Complaint: HPI: Noé Jeffery is a [...] with complete remission. He follows up with [facility] Neurology and had underwent a heavy metal screen, [facility] analysis, MRI 2021 showing severe generalized volume [...] decline, Patient had presented to ED in [place] June 18 after waking up not oriented and delusional. Then June 25 he woke up again not knowing where he is delusional thinking his sister was an intruder so he was brought to [facility] and discharged later that evening. He was seen by social services referred to a mental health center and per family his mental status had worsened and they felt he was being overmedicated with Benadryl. 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 The impression there was no infectious or metabolic etiology so patient was transferred to [facility] for higher level of care. On my evaluation patient was restless fidgeting and did not allow me to speak him or enter the room, he would tell me his family members names what refused to tell me his name asked me to leave the room. I could not do any assessment [place] test or neurological exam. Per family patient [...] markers confirmed early onset Alzheimer's established in [facility] October 2022 in addition to hyperlipidemia, GERD, dm 2. Patient was transferred found [facility] for higher level of care and workup of sharp decline in cognition since May 2024. Patient had presented multiple times to the ED and admitted [facility] for delusional thinking/hallucinations/agitatio n. On evaluation [...] once reconciled. Khalif Valerio MD PGY-1 Neurology [facility] 07/06/24 9:[address] Sofia This patient is being followed by the Neurology Resident service. Contact attending directly during these hours: Tuesday to 7:30-8:30 A.M. to Tuesday 12-1:00 p.m. Primary Neurology service: [phone] Consult neurology service: [phone] Resident Stroke Service: [phone] If the patient belongs to the Stroke [facility]SH[facility] service please contact the Stroke [facility]SHLEE directly. Cosigned by Kelley Sofia MD at 07/06/2024 11:32 PM EST Associated attestation - Kelley Sofia MD - 07/06/2024 11:32 PM EST Kelley Sofia MD Neurology [facility] 07-06-2024 History and physical note Images from the original note were not included. [facility] Hospital[facility] History and Physical 07/06/2024 Patient [...] dementia, GERD, perforated colon who presents to [facility] as a transfer from [place] for neurologic evaluation. History obtained from sister [...] 11/24/2019 Performed by Skyler Bowen MD at [facility] 3YEARS AGO COLOSTOMY CLOSURE Allergy: Diphenhydramine Prior [...] in full via EMR. Nichol Heath MD [facility] 07-06-2024 History and physical note Images from the original note were not included. [facility] History and Physical 07/06/2024 Patient [...] dementia, GERD, perforated colon who presents to [facility] as a transfer from [place] for neurologic evaluation. History obtained from sister [...] 11/24/2019 Performed by Skyler Bowen MD at [facility] 3YEARS AGO COLOSTOMY CLOSURE Allergy: Diphenhydramine Prior [...] Nichol Heath MD documented in this encounter [facility] 06-26-2024 Note Progress Note-Nurse Attempted to call office due to family requesting additional lab work (PSA level). There was no answer at the office and no option to leave voicemail. Intrusted family to call later on today to talk to Dr. Graham's space scheduler about obtained PSA level [facility] 03-09-2024 Telephone encounter Note I have refilled your prescription. A review of your chart shows that you have not had a follow up visit in more than 1 year. Refills for medications require at least 1 follow up visit per year. Please call: to schedule an appointment. Lisandra Gomez APRN.CNP [facility] 03-09-2024 Miscellaneous Notes I have refilled your prescription. A review of your chart shows that you have not had a follow up visit in more than 1 year. Refills for medications require at least 1 follow up visit per year. Please call: to schedule an appointment. Lisandra Gomez APRN.CNP documented in this encounter [facility] 01-11-2024 Hospital Discharge instructions Patient [...] treatment? Where to find more information The [employer] Society: www.cancer.org South [employer] Urological Association: www.auanet.org Contact a health care [...] provider. Document Revised: 11/30/2021 Document Reviewed: 11/30/2021 [place] Patient Education 2022 MissingLINK. Follow Up Care 12/23/2023 09:42:08 With:Santos PEÑA, Danni Portillo, URL, URO Address: When: Unknown Comments:Pending MRI, may proceed with fusion bx [facility] 01-11-2024 Note Urology Office/Clini c [...] repair with mesh. -Will schedule MRI @ [facility] STAT. -Will schedule MRI fusion transperineal prostate biopsy under MAC Follow-up With When Contact Information Danni Graham MD, URL, URO Additional Instructions: Pending MRI, may [...] Biopsy of pro (more content not included)... [facility] Comment on above: Result Comment: Elec [...] Where to find more information ? The [employer] Society: www.cancer.org ? South [employer] Urological Association: www.auanet.org Contact a health care [...] of the rectum. (more content not included)... [facility] 12-06-2023 Telephone encounter Note The following approved medication requests have been transmitted electronically. Requested Prescriptions Signed Prescriptions Disp Refills donepezil (ARICEPT) 5 mg tablet 90 tablet 0 Sig: Take 1 tablet by mouth once daily. Authorizing Provider: LORRI PLASCENCIA Ordering User: TANISHA JEFFERS APRN.CNP [facility] 12-06-2023 Miscellaneous Notes The following approved medication requests have been transmitted electronically. Requested Prescriptions Signed Prescriptions Disp Refills donepezil (ARICEPT) 5 mg tablet 90 tablet 0 Sig: Take 1 tablet by mouth once daily. Authorizing Provider: LORRI PLASCENCIA Ordering User: TANISHA JEFFERS APRN.CNP documented in this encounter [facility] 03-07-2023 Miscellaneous Notes Summary: [facility] Baseline Interest A voicemail was left about participation in [facility] research study. documented in this encounter [facility] 02-09-2023 Miscellaneous Notes WaveCheck message sent documented in this encounter [facility] 02-08-2023 Miscellaneous Notes Summary: [facility] Potential Participant A call was made to of patient to talk about interest in participating in [facility]. expressed interest in participating. The [facility] consent document was sent through email. A call will be made in a week to discuss enrollment. documented in this encounter [facility] 02-04-2023 Miscellaneous Notes Images from the original note were not included. documented in this encounter [facility] 02-02-2023 Miscellaneous Notes The following approved medication requests have been transmitted electronically. Requested Prescriptions Signed Prescriptions Disp Refills donepezil (ARICEPT) 5 mg tablet 90 tablet 1 Sig: TAKE 1 TABLET BY MOUTH EVERY DAY Authorizing Provider: LORRI PLASCENCIA Ordering User: KIMO PATE APRN.CNP documented in this encounter [facility] 01-13-2023 Miscellaneous Notes Patient returned call, requested a call back. I left a message explaining the 4% requirement from Medicare, and advised to contact Medicare if they have insurance questions. Advised to call me back if they had other concerns or questions. Sonal Weinstein APRN.CNP documented in this encounter [facility] 12-03-2022 Miscellaneous Notes Faxed order, office notes, demographics, and sleep study to: DME name: [facility] fax: [phone] DME ph: documented in this encounter [facility] 12-02-2022 History of Present illness Narrative Images from the original note were not included. [facility] Sleep Disorders Center Follow up/ [...] will have a prescription sent to a [employer] ([employer]) company - [employer] who will be calling you in the next 1-2 weeks or so. Please call them directly or us if you do not hear from them in this time frame. - You should be eligible for new supplies approximately every 3-6 months, depending on your insurance coverage. - If your mask doesn't fit well, call the [employer] company before 30 days are up to get a new mask without an additional charge. - Insurance requires regular usage and periodic office follow ups for PAP therapy, to continue to cover supplies. - Follow up in 2 months in the office. Recommend scheduling this appointment now to ensure the best time for you. Roosevelt Merlos PGY-[address] [facility] I have supervised and discussed the patient case with the Sleep Medicine Fellow including interviewing the patient in person and have updated the electronic medical record where necessary. I agree with the history, physical, impression and recommendations as documented. Gera Cardona, DO, CBSM, ABSM Clinical Staff Sleep Medicine [facility] [place] [facility] [place] [address] [place] [address] I have communicated my name and active licensure. The patient's identity and physical location were verified at the time of this visit. Either the patient or their legal graphic art sales representative has been informed of the risks and benefits of -- and alternatives to -- treatment through a remote evaluation and consents to proceed with the evaluation remotely. Interval history : Here for follow up for SHELBY follow up after starting PAP therapy. ; SLEEP APNEA Sleep apnea type : SHELBY, Most Recent Apnea-Hypopnea Index (AHI): 47.7 Treatment : PAP therapy DME: [employer] PAP History: Uses Bilevel PAP for 2 [...] or near accidents due to drowsy drivin [place] Sleepiness Scale 04/28/2022 Score Incomplete PROMIS CAT [...] which included preparing to see the patient, txfp-ia-otij patient care, completing clinical documentation, obtaining and/or reviewing separately obtained history, counseling and educating the patient/family/caregiver, ordering medications, tests, or procedures, and communicating results to the patient/family/caregiver. documented in this encounter [facility] 11-17-2022 Instructions Lorri Plascencia MD [...] are our recommendations: - Cognitive therapy at [facility]. - Aricept 5 mg daily with breakfast - Namenda 5 twice a day with breakfast and dinner. - Maintain physically, socially and cognitively healthy lifestyle. - Schedule in person report in February 2023. Please schedule next visit with Lorri Plascencia MD, PhD or Kimo Pate NP in person in February -March 2023 To schedule testing and visits please call: [phone]. If you have new, unexpected concerns in between visits please call our office at [phone] ( you will be able to reach one of our nurses). [facility] fax [phone] Ways to keep your brain healthy: Follow [...] fish and fish high in mercury (swordfish, Mauritanian sea martinez, orange roughy, ahi tuna, albacore [...] resources are: The Alzheimer's Association (web site: alz.org/aurora) available 24 hours a day, 7 days per week. Contact: Local: ; Toll free: [phone] Family Caregiver [place] (web site: Caregiver.org) MARLEEN Hawkins-- a secure online solution for quality information, support, and resources for family caregivers. Contact: Toll-free number: 687.240.6434 Alzheimers.gov - Find Alzheimer disease and related dementias information, resources, research and more. documented in this encounter [facility] 11-17-2022 History of Present illness Narrative Images from the original note were not included. Noé Jeffery [address] [place] [id number] November 17, 2022 [facility] Report Virtual Virtual visit with Patient and family members Chief complaint: poor memory, forgetfulness I have communicated my name and active licensure. The patient's identity and physical location were verified at the time of this visit. Either the patient or their legal graphic art sales representative has been informed of the risks [...] that time. 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 He recalls forgetting a clip/tie for his gun one day. He also failed firearm safety training which is required every months. He states he is still able to perform ADLs at home and still able to work in his other job with [employer] systems. However, he has noticed that he [...] Patient used to work as a security nurse Currently on [employer] Living with the family in the same household. 2 children. Social History Tobacco Use Smoking status: Never Smokeless tobacco: Never Substance Use Topics Alcohol use: Not Currently Social History reviewed by Lorri Plascencia MD PAST MEDICAL HISTORY Diagnosis Date COVID-19 virus infection 04/2020 DM2 (diabetes mellitus, type 2) ([facility]) GERD (gastroesophageal reflux disease) HLD (hyperlipidemia) Vital [...] biomarkers confirmed- early onset. Bradycardia. PLAN: - [facility] referral - Cognitive therapy at [facility]. - Aricept 5 mg daily with breakfast [...] . Lorri Plascencia MD, PhD Geriatric Psychiatry [facility] Brain Health CC: 1. No primary care provider on file., (fax) None documented in this encounter [facility] 10-12-2022 Nurse Note [facility] LUMBAR PUNCTURE NURSE DISCHARGE NOTE The patient [...] Tanisha Jeffers RN documented in this encounter [facility] 10-12-2022 Instructions Miguelito Chicas APRN.OPERATIONS AND MAINTENANCE MANAGER - 10/12/2022 10:31 AM EDT Images from the original note were not included. [facility] [place] GOING HOME INSTRUCTIONS POST LP HEADACHE Prevention [...] as coffee or tea You can take zetl-dpm-tzfrfho Tylenol and/or Ibuprofen as directed INFECTION PREVENTION [...] from 8-5pm, please contact our office line [phone] and then hit 0 , please ask our principal administrative clerk to page the provider who performed the spinal tap. -For nights or weekends, call or toll free and ask the component prep operator the page the Neurology resident on-call. 2. If your headache is unusually severe regardless of bedrest or lasts more than two days 3. If you develop a fever 4. If you notice inflammation, pus formation or clear drainage from the site of the needle puncture You may resume your usual activities after 48 hours. documented in this encounter [facility] 10-12-2022 History of Present illness Narrative [facility] PROCEDURE FOR DIAGNOSTIC TESTING Noé Jeffery, [id number] October 12, 2022, 8:57 AM INFORMED CONSENT [...] October 12, [address] [facility] 08-12-2022 History of Present illness [...] Abs Lymph 1.00 - 4.00 k/uL 1.45 Morton% % 6.2 Abs Morton <0.87 k/uL 0.31 Eosin% % 0.6 Abs Eosin <0.46 k/uL 0.03 Baso% % 0.8 Abs Baso <0.11 k/uL 0.04 Immature Gran % % 0.2 IMMATURE GRANS (ABS) <0.10 k/uL <0.03 NRBC /100 WBC 0.0 Absolute nRBC <0.01 k/uL <0.01 [employer]TYPE [employer] Care Coordination Interventions: none Leah Mckeon RN documented in this encounter [facility] 08-11-2022 Instructions Lorri Plascencia MD [...] To schedule testing and visits please call: [phone]. If you have new, unexpected concerns in between visits please call our office at [phone] ( you will be able to reach one of our nurses). [facility] fax [phone] Ways to keep your brain healthy: Follow [...] fish and fish high in mercury (swordfish, Mauritanian sea martinez, orange roughy, ahi tuna, albacore [...] resources are: The Alzheimer's Association (web site: alz.org/aurora) available 24 hours a day, 7 days per week. Contact: Local: ; Toll free: [phone] Family Caregiver [employer] [place] (web site: Caregiver.org) MARLEEN Hawkins-- a secure online solution for quality information, support, and resources for family caregivers. Contact: Toll-free number: 872.125.9344 Alzheimers.gov - Find Alzheimer disease and related dementias information, resources, research and more. documented in this encounter [facility] 08-11-2022 History of Present illness Narrative Images from the original note were not included. Noé Jeffery [address] [place] [id number] August 11, 2022 Time: 2:35 PM Center [...] that time. 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 Lorri Plascencia MD, PhD Geriatric Psychiatry [facility] Brain Health CC: 1. No primary care provider on file., (fax) None documented in this encounter [facility] 07-22-2022 History of Present illness Narrative No show. Connection aborted after 15 min. of waiting online KGR documented in this encounter [facility] 05-07-2022 Miscellaneous Notes Radiology Service [...] DATA: Not applicable SIGNED BY: Nicole Huffman, office associate May 07, 2022 1:31 PM documented in this encounter [facility] 04-30-2022 Instructions Roosevelt Merlos MD [...] will have a prescription sent to a [employer] ([employer]) company - [employer] who will be calling you in the next 1-2 weeks or so. Please call them directly or us if you do not hear from them in this time frame. - You should be eligible for new supplies approximately every 3-6 months, depending on your insurance coverage. - If your mask doesn't fit well, call the [employer] company before 30 days are up to get a new mask without an additional charge. - Insurance requires regular usage and periodic office follow ups for PAP therapy, to continue to cover supplies. - Follow up in 2 months in the office. Recommend scheduling this appointment now to ensure the best time for you. CMS Requirements - Your insurance requires a ftlu-lo-lrue follow up visit within a 31-90 day [...] for BiPAP supplies. documented in this encounter [facility] 04-30-2022 History of Present illness Narrative Images from the original note were not included. [facility] Sleep Disorders Center New Patient Evaluation PATIENT NAME: Noé Jeffery DATE OF SERVICE: April 30, 2022 CONSULTING PROVIDER: Narciso Guerra [address] [facility] [address] REASON FOR CONSULT: Narciso Guerra sends the [...] or near accidents due to drowsy drivin [place] Sleepiness Scale 04/28/2022 Score Incomplete PROMIS CAT [...] will have a prescription sent to a [employer] ([employer]) company - [employer] who will be calling you in the next 1-2 weeks or so. Please call them directly or us if you do not hear from them in this time frame. - You should be eligible for new supplies approximately every 3-6 months, depending on your insurance coverage. - If your mask doesn't fit well, call the [employer] company before 30 days are up to get a new mask without an additional charge. - Insurance requires regular usage and periodic office follow ups for PAP therapy, to continue to cover supplies. - Follow up in 2 months in the office. Recommend scheduling this appointment now to ensure the best time for you. Roosevelt Merlos PGY-[address] [facility] I have supervised and discussed the patient case with the Sleep Medicine Fellow including interviewing the patient in person and have updated the electronic medical record where necessary. I agree with the history, physical, impression and recommendations as documented. Gera Cardona DO, CBSM, ABSM Clinical Staff Sleep Medicine [facility] [place] [facility] [address] [place] [address] encounter [facility] 04-26-2022 History of Present illness [...] Program (KP): KP was not completed in [facility] by patient and accepted Study type: Split Study-Polysomnogram with CPAP titration Adverse Event: No (If yes create a new abstract) SERS Event: No Comments: Patient was advised to follow up with their ordering provider regarding test results [employer] April 25, 2022 Standing PSG Orders signed in the last 90 days None Future PSG Orders signed in the last 90 days Ordered Auth. provider POLYSOMNOGRAM (PSG) [[id number]] 04/22/22 Narciso Guerra MD Assoc. diagnoses: Cognitive [...] as needed, and agree to the plan. Eddy Nielson MD 8:46 PM 04/25/[address] [facility] 04-22-2022 History of Present illness Narrative [facility] [place] AUDIOLOGIC EVALUATION REPORT Name: Noé Jeffery [facility]#: [id number] Date of Service: 04/22/2022 Date of : 1965 Age: [age] year old Referred by: Narciso Guerra [address] [facility] [place] [address] Referred for: Evaluation of the cause of disorder of hearing, tinnitus, or balance. Referral documented: In an order in [facility] Patient's major complaints: Noé reported he [...] evaluation of middle ear function. CPT code: 88106 RIGHT EAR: Tympanogram that was flat, with no identifiable peak and reduced TM mobility consistent with a conductive pathology (wax). LEFT EAR: Normal ME pressure and TM compliance (mobility). ACOUSTIC REFLEXES Description of procedure: This test is an objective measure of auditory and facial nerve pathways. CPT code: 43243, 35384 RIGHT EAR PROBE EAR: (ipsi right stimulus [...] bone conduction and speech recognition testing. CPT code:87756 RIGHT EAR: Hearing Sensitivity: Did not test. Word Recognition Score: Did not test. LEFT EAR: Hearing Sensitivity: Did not test. Word Recognition Score: Did not test. RECOMMENDATIONS Medical follow up for removal of bilateral impacted cerumen. Patient will see [facility] today. Hearing Test after #1. Juana Horta, ARIE/A Clinical Metal Mover JIMENEZ Abbrev- iation Definition Degree of hearing sensitivity dB range WNL within normal limits WNL 0 - 20 SNHL sensorineural hearing loss Mild 20-40 CHL conductive hearing loss Moderate 40-55 MHL mixed hearing loss Moderately-Severe 55-70 WRS word recognition score Severe 70-90 ME middle ear Profound 90 + TM tympanic membrane documented in this encounter [facility] 04-22-2022 History of Present illness Narrative This note was created using Secure-24. Subjective Noé Jeffery is a 56 year [...] externa of left ear, unspecified type Plan: qvefamzg-thgwfldlk-rcdtilxqrkbkg e (CORTISPORIN) 3.5-10,000-1 mg/mL-unit/mL-% otic suspension Use as directed Follow up with PCP if symptoms worsen or do not improve Brenda Blanco APRN.ERFAIN April 22, [address] [facility] 04-22-2022 Instructions Brenda Blanco APRN.EFRAIN [...] made for swimming. documented in this encounter [facility] 07-27-2020 Note MR#: [id number] I [facility] Pt. Name: Noé Jeffery Admitted: 07/24/2020 Discharged: [...] Ga MD Date Trans: 07/27/2020 03:32 A/patricia [id number] cc: Jae Lopez M.D. [address] [place] [address] [facility] 07-24-2020 Note MR#: [id number] I [facility] Pt. Name: Noé Jeffery Admitted: 07/21/2020 Discharged: [...] P/Ayanna Ga MD Date Trans: 07/24/2020 10:00 A/mmo [id number] cc: Jae Lopez M.D. [address], [place] [address] [facility] Evaluation + Plan note No data available for this section [facility] Evaluation + Plan note Future Appointments Appointment Date:06/26/2024 12:00:00 PM Scheduled Provider: Location:[facility] Surgical Services Appointment Type:Surgery FT Appointment Date:07/11/2024 11:15:00 AM Scheduled Provider:Danni Graham MD Location:[facility] Appointment Type:URO Office Visit [facility] Evaluation + Plan note Future Appointments Appointment Date:07/11/2024 11:15:00 AM Scheduled Provider:Danni Graham MD Location:[facility] Appointment Type:URO Office Visit [facility] Evaluation note Diagnosis Bilateral impacted cerumen- Primary Impacted cerumen Elevated blood pressure reading without diagnosis of hypertension Acute otitis externa of left ear, unspecified type [facility] Diagnosis Bilateral impacted cerumen- Primary Impacted cerumen [facility] Diagnosis Sleep apnea, unspecified type- Primary Sleep hypopnea Other sleep disturbances [facility] Diagnosis SHELBY (obstructive sleep apnea)- Primary Obstructive sleep apnea (adult) (pediatric) [facility] Diagnosis [facility] loss- Primary [facility] Diagnosis Memory loss- Primary Encounter for lumbar puncture [facility] Diagnosis Alzheimer's disease (HCC)- Primary Alzheimer's disease [facility] Diagnosis Obstructive sleep apnea- Primary Obstructive sleep apnea (adult) (pediatric) Primary central sleep apnea Hyperlipidemia, unspecified hyperlipidemia type [facility]* Diagnosis Alzheimer's disease (HCC)- Primary Alzheimer's disease [facility]* Diagnosis Research study patient- Primary [facility] Diagnosis Cognitive changes Other signs and symptoms involving cognition [facility]* Diagnosis Alzheimer's disease (HCC) Alzheimer's disease [facility]* Diagnosis Alzheimer's disease (HCC) Alzheimer's disease documented in this encounter [facility] noteNo assessment information [facility] Work Phone: Evaluation note* Diagnosis Dementia with behavioral disturbance (CMS-HCC)- Primary Dementia with behavioral disturbance (CMS-HCC) Status post colostomy, follow-up exam (CMS-HCC) Follow-up examination, following unspecified surgery Altered mental status Status post colostomy, follow-up exam (CMS-HCC) Follow-up examination, following unspecified surgery [facility] Diagnosis History of traumatic brain injury- Primary Personal history of traumatic brain injury Dementia, unspecified dementia severity, unspecified dementia type, unspecified whether behavioral, psychotic, or mood disturbance or anxiety (HCC) Cognitive deficits Unspecified persistent mental disorders due to conditions classified elsewhere Impaired mobility and ADLs Other ill-defined conditions 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) documented in this encounter [facility] Discharge instructions No data available for this section [facility] of [facility] InstructionsNot on filedocumented in this encounter [employer] SystemProgress note No data available for this section [facility] reason for visit Narrative* Auth/Cert (Routine) Specialty Diagnoses / Procedures Referred By Contac t Referred To Contact Diagnoses Dementia with behavioral disturbance (CMS-HCC) At risk for long QT syndrome Altered mental status Altered Mental Status Nichol Heath MD [address] [place] [address], [address] [place] [address] Phone: tel: fax: Referral ID Status Reason Start Date Expiration Date Visits Re quested Visits Authorized [id number] 1 1 [facility] Summary Purpose Family History No [...] CONSULT TO SLEEP MEDICINE - ADULT OFFICE/OUTPATIENT [facility] 60-[place] [address] [place] [address] Referral ID Status Reason Start Date Expiration Date Visits Requested Visits Authorized [id number] Authorized PCP Requested Referral 04/28/2022 04/28/2023 1 1 Specialty Diagnoses / Procedures Referred By Naseem araujo Referred To Contact [facility] Diagnoses Alzheimer's disease (HCC) Procedures CONSULT TO SPEECH THERAPY OFFICE/OUTPATIENT [facility] 60-74 MINUTES Lorri Plascencia MD [address] [place] [address] [place] [place] [address] Referral ID Status Reason Start Date Expiration Date Visits Requested Visits Authorized [id number] Pending Review Auto-Generat ed Referral 11/17/2022 11/17/2023 1 1 Specialty Diagnoses / Procedures Referred By Naseem araujo Referred To Contact MR IMAGING Diagnoses Cognitive changes Procedures MRI 3D POST PROCESSING 3D RENDERING W/INTERP&POSTPROC [place] [address] [place] [address] [facility] [place] [address] Referral ID Status Reason Start Date Expiration Date V isits Requested Visits Authorized [id number] Closed Auto-Generate d Referral 04/22/2022 05/22/2023 1 1 Specialty Diagnoses / Procedures Referred By Naseem araujo Referred To Contact MR IMAGING Diagnoses Cognitive changes Procedures MRI BRAIN WO IVCON MRI BRAIN BRAIN STEM W/O CONTRAST MATERIAL Narciso Guerra MD [address] [place] [address] [place] [address] Referral ID Status Reason Start Date Expiration Date V isits Requested Visits Authorized [id number] Closed Auto-Generate d Referral 04/22/2022 06/06/2022 1 [...] section and content) DATE CREATED AUTHOR 04/15/2021 [facility] DATE CREATED AUTHOR AUTHOR'S ORGANIZ ATION 05/09/2022 [facility] DATE CREATED AUTHOR AUTHOR'S ORGANIZ ATION 10/28/2022 [facility] DATE CREATED AUTHOR AUTHOR'S ORGANIZ ATION 06/28/2024 [facility] DATE CREATED AUTHOR AUTHOR'S ORGANIZ ATION 07/01/2024 [facility] DATE CREATED AUTHOR AUTHOR'S ORGANIZ ATION 07/04/2024 [facility] DATE CREATED AUTHOR AUTHOR'S ORGANIZ ATION 07/11/2024 [facility] DATE CREATED AUTHOR AUTHOR'S ORGANIZ ATION 07/22/2024 [facility] DATE CREATED AUTHOR AUTHOR'S ORGANIZ ATION 07/28/2024 [facility] DATE CREATED AUTHOR AUTHOR'S ORGANIZ ATION 08/05/2024 [facility] DATE CREATED AUTHOR AUTHOR'S ORGANIZ ATION 08/13/2024 [facility] Source Comments (unrecognize d section and content) In the event this informatio n is protected by the Federal Confidentiality of Alcohol and Drug Abuse Patient Records regulations: The Federal rules restrict any use of the information to criminally investigate or prosecute any alcohol or drug abuse patient.[facility] Center[facility] the event this information is protected by the Federal Confidentiality of Alcohol and Drug Abuse Patient Records regulations: The Federal rules restrict any use of the information to criminally investigate or prosecute any alcohol or drug abuse patient.[facility] Center[facility] the event this information is protected by the Federal Confidentiality of Alcohol and Drug Abuse Patient Records regulations: The Federal rules restrict any use of the information to criminally investigate or prosecute any alcohol or drug abuse patient.[facility] CenterIn the event this information is protected by the Federal Confidentiality of Alcohol and Drug Abuse Patient Records regulations: The Federal rules restrict any use of the information to criminally investigate or prosecute any alcohol or drug abuse patient.[facility] CenterIn the event this information is protected by the Federal Confidentiality of Alcohol and Drug Abuse Patient Records regulations: The Federal rules restrict any use of the information to criminally investigate or prosecute any alcohol or drug abuse patient.[facility] CenterIn the event this information is protected by the Federal Confidentiality of Alcohol and Drug Abuse Patient Records regulations: The Federal rules restrict any use of the information to criminally investigate or prosecute any alcohol or drug abuse patient.[facility] CenterIn the event this information is protected by the Federal Confidentiality of Alcohol and Drug Abuse Patient Records regulations: The Federal rules restrict any use of the information to criminally investigate or prosecute any alcohol or drug abuse patient.[facility] CenterIn the event this information is protected by the Federal Confidentiality of Alcohol and Drug Abuse Patient Records regulations: The Federal rules restrict any use of the information to criminally investigate or prosecute any alcohol or drug abuse patient.[facility] CenterIn the event this information is protected by the Federal Confidentiality of Alcohol and Drug Abuse Patient Records regulations: The Federal rules restrict any use of the information to criminally investigate or prosecute any alcohol or drug abuse patient.[facility] CenterIn the event this information is protected by the Federal Confidentiality of Alcohol and Drug Abuse Patient Records regulations: The Federal rules restrict any use of the information to criminally investigate or prosecute any alcohol or drug abuse patient.[facility] CenterIn the event this information is protected by the Federal Confidentiality of Alcohol and Drug Abuse Patient Records regulations: The Federal rules restrict any use of the information to criminally investigate or prosecute any alcohol or drug abuse patient.[facility] CenterIn the event this information is protected by the Federal Confidentiality of Alcohol and Drug Abuse Patient Records regulations: The Federal rules restrict any use of the information to criminally investigate or prosecute any alcohol or drug abuse patient.[facility] CenterIn the event this information is protected by the Federal Confidentiality of Alcohol and Drug Abuse Patient Records regulations: The Federal rules restrict any use of the information to criminally investigate or prosecute any alcohol or drug abuse patient.[facility] CenterIn the event this information is protected by the Federal Confidentiality of Alcohol and Drug Abuse Patient Records regulations: The Federal rules restrict any use of the information to criminally investigate or prosecute any alcohol or drug abuse patient.[facility] CenterIn the event this information is protected by the Federal Confidentiality of Alcohol and Drug Abuse Patient Records regulations: The Federal rules restrict any use of the information to criminally investigate or prosecute any alcohol or drug abuse patient.[facility] CenterIn the event this information is protected by the Federal Confidentiality of Alcohol and Drug Abuse Patient Records regulations: The Federal rules restrict any use of the information to criminally investigate or prosecute any alcohol or drug abuse patient.[facility] CenterIn the event this information is protected by the Federal Confidentiality of Alcohol and Drug Abuse Patient Records regulations: The Federal rules restrict any use of the information to criminally investigate or prosecute any alcohol or drug abuse patient.[facility] CenterIn the event this information is protected by the Federal Confidentiality of Alcohol and Drug Abuse Patient Records regulations: The Federal rules restrict any use of the information to criminally investigate or prosecute any alcohol or drug abuse patient.[facility] CenterIn the event this information is protected by the Federal Confidentiality of Alcohol and Drug Abuse Patient Records regulations: The Federal rules restrict any use of the information to criminally investigate or prosecute any alcohol or drug abuse patient.[facility] CenterIn the event this information is protected by the Federal Confidentiality of Alcohol and Drug Abuse Patient Records regulations: The Federal rules restrict any use of the information to criminally investigate or prosecute any alcohol or drug abuse patient.[facility] CenterIn the event this information is protected by the Federal Confidentiality of Alcohol and Drug Abuse Patient Records regulations: The Federal rules restrict any use of the information to criminally investigate or prosecute any alcohol or drug abuse patient.[facility] CenterIn the event this information is protected by the Federal Confidentiality of Alcohol and Drug Abuse Patient Records regulations: The Federal rules restrict any use of the information to criminally investigate or prosecute any alcohol or drug abuse patient.[facility] CenterIn the event this information is protected by the Federal Confidentiality of Alcohol and Drug Abuse Patient Records regulations: The Federal rules restrict any use of the information to criminally investigate or prosecute any alcohol or drug abuse patient.[facility] CenterIn the event this information is protected by the Federal Confidentiality of Alcohol and Drug Abuse Patient Records regulations: The Federal rules restrict any use of the information to criminally investigate or prosecute any alcohol or drug abuse patient.[facility] CenterIn the event this information is protected by the Federal Confidentiality of Alcohol and Drug Abuse Patient Records regulations: The Federal rules restrict any use of the information to criminally investigate or prosecute any alcohol or drug abuse patient.[facility] CenterIn the event this information is protected by the Federal Confidentiality of Alcohol and Drug Abuse Patient Records regulations: The Federal rules restrict any use of the information to criminally investigate or prosecute any alcohol or drug abuse patient.[facility] CenterIn the event this information is protected by the Federal Confidentiality of Alcohol and Drug Abuse Patient Records regulations: The Federal rules restrict any use of the information to criminally investigate or prosecute any alcohol or drug abuse patient.[facility] CenterIn the event this information is protected by the Federal Confidentiality of Alcohol and Drug Abuse Patient Records regulations: The Federal rules restrict any use of the information to criminally investigate or prosecute any alcohol or drug abuse patient.[facility] CenterIn the event this information is protected by the Federal Confidentiality of Alcohol and Drug Abuse Patient Records regulations: The Federal rules restrict any use of the information to criminally investigate or prosecute any alcohol or drug abuse patient.[facility] CenterIn the event this information is protected by the Federal Confidentiality of Alcohol and Drug Abuse Patient Records regulations: The Federal rules restrict any use of the information to criminally investigate or prosecute any alcohol or drug abuse patient.[facility] Reason for Visit (unrecogniz ed section and content) Reason Comments Earwax Bilateral ear Specialty Diagnoses / Procedures Referred By Contac t Referred To Contact Diagnoses Bilateral hearing loss, unspecified hearing loss type Procedures HEARING TEST/AUDIOGRAM COMPRE AUDIOMETRY THRESHOLD PETRAAL Narciso Salas MD [address] [place] [address] [facility] [address] [place] [address] Referral ID Status Reason Start Date Expiration Date V isits Requested Visits Authorized [id number] Closed Auto-Generate d Referral 04/22/2022 07/21/2022 1 1 Reason Comments New Patient Evaluation Had sleep study d one. Specialty Diagnoses / Procedures Referred By Naseem t Referred To Contact Diagnoses Sleep apnea, unspecified type Sleep hypopnea Procedures CONSULT TO SLEEP MEDICINE - ADULT OFFICE/OUTPATIENT [facility] 60-[place] [address] [place] [address] Referral ID Status Reason Start Date Expiration Date V isits Requested Visits Authorized [id number] Closed PCP Requested Referral 04/28/2022 04/28/2023 1 1 Reason Comments Memory Loss Specialty Diagnoses / Procedures Referred By Naseem t Referred To Contact Neurology Diagnoses Memory loss Procedures CONSULT TO NEUROLOGY OFFICE/OUTPATIENT [facility] 60-74 MINUTES Narciso Guerra MD [address] [place] [address] Referral ID Status Reason Start Date Expiration Date V isits Requested Visits Authorized [id number] Closed PCP Requested Referral 06/22/2022 06/22/2023 1 [...] W/O CONTRAST MATERIAL Narciso Guerra MD [address] [place] [phone] [id number] Referral ID Status Reason Start Date Expiration Date V isits Requested Visits Authorized [id number] Closed Auto-Generate d Referral 04/22/2022 06/06/2022 1 1 Reason Onset Date Comments Refill Request 12/06/2023 Reason Onset Date Comments patient concern 07/12/2024 Reason Comments Patient Question Reason Comments Consult Patient Care team informatio n (unrecognized section and content) Team Status: Active Member Role Status Dates Jae Lopez MD Primary Care Provider Active Team Status: Inactive Member Role Status Dates Danni Graham MD Attending Provider Active Start : March 15, 2024 End: March 15, 2024 Jae Lopez MD Primary Care Provider Active Start: March 15, 2024 End: March 15, 2024 Seam Stayer Relationship Specialty Start Date End Date Jae Lopez MD PCP - General 03/27/18 Seam Stayer Relationship Specialty Start Date End Date Jae [...] of food. 0839 (Given - Provider: Lorna Faye)2255 (Given - Provider: Claribel Amato RN) 0939 (Given - Provider: Neela Beaver RN)213 (Given - Provider: Claribel Amato RN) 0826 (Given - Provider: Ethel Martinez RN)2100 (Due) donepeziL (ARICEPT) tablet 5 mg 5 mg, oral, Nightly, First dose on Tue07/06/24 at 2200, Look-alike/sound-alike medication - verify indication for use. 225 (Given - Provider: Claribel Amato RN) 2138 (Given - Provider: Claribel Amato RN) 2200 (Due) doxycycline (VIBRAMYCIN) capsule 100 mg (COMPLETED) [...] tissue infection 0840 (Given - Provider: Lorna Faye)2256 (Given - Provider: Claribel Amato RN) 0941 (Given - Provider: Neela Beaver RN)213 (Given - Provider: Claribel Amato RN) DULoxetine (CYMBALTA) DR capsule 20 mg 20 mg, oral, Daily, First dose on Tue07/06/24 at 0900, Look-alike/sound-alike medication - verify indication for use. Swallow whole-do not crush or chew. Although the dry cure worker does not recommend opening the capsule, the contents of capsule may be sprinkled on applesauce or in apple juice and swallowed (without chewing) immediately; do not sprinkle contents on chocolate pudding. 0840 (Given - Provider: Lorna Faye) 0941 (Given - Provider: Neela Beaver RN) 0826 (Given - Provider: Ethel Martinez RN) enoxaparin (LOVENOX) syringe 40 mg 40 mg, subcutaneous, Daily, First dose on Tue07/17/24 at 1630, Look-alike/sound-alike medication - verify indication for use. 0841 (Given - Provider: Lorna Faye) 0939 (Given - Provider: Neela Beaver RN) 0825 (Given - Provider: Ethel Martinez RN) melatonin (CIRCADIN) tablet 10 mg 10 [...] Beaver RN) 0826 (Given - Provider: Ethel Martinez RN) QUEtiapine (SEROquel) tablet 150 mg(Linked Group 1) 150 mg, oral, Nightly, First dose (after last modification) on Tue07/12/24 at 2200, Look-alike/sound-alike medication - verify indication for use. 2255 (Given - Provider: Claribel Amato RN) 2139 (Given - Provider: Claribel Amato RN) 2200 (Due) QUEtiapine (SEROquel) tablet 50 mg(Linked Group 1) 50 mg, oral, Daily, First dose (after last modification) on Tue07/12/24 at 0900, Look-alike/sound-alike medication - verify indication for use. 0840 (Given - Provider: Lorna Faye) 0942 (Not Given - Provider: Neela Beaver RN - Reason: Other - Comment: pill dropped)1103 (Given - Provider: Neela Beaver RN) 0826 (Given - Provider: Ethel Martinez RN) sodium chloride 0.9 % flush 3 mL [...] BE BASED ON THE PRIMARY CLINICAL RECORDS. [employer] provides no warranty or guarantee of the accuracy or completeness of information in this document.
[2024-08-25 09:47] LABS: Basophils Percent Auto 0.9 % (0.2-2.0); Eosinophils Absolute Auto 0.1 10^3/uL (0.0-0.7); Eosinophils Percent Auto 1.9 % (0.9-7.0); Hematocrit 44.5 % (42.0-54.0); Hemoglobin 14.3 g/dL (14.0-18.0); Immature Granulocytes Abs Auto 0.05 10^3/uL (0.00-0.03); Immature Granulocytes Pct Auto 1.6 % (0.0-0.5); Lymphocytes Absolute Auto 1.3 10^3/uL (1.2-3.8); Lymphocytes Percent Auto 38.9 % (20.5-60.0); Mean Corpuscular HGB Conc 32.1 g/dL (29.9-35.2); Mean Corpuscular Hemoglobin 24.8 pg (25.9-34.0); Mean Corpuscular Volume 77.1 fL (80.0-94.0); Mean Platelet Volume 9.7 fL (9.5-13.5); Monocytes Absolute Auto 0.3 10^3/uL (0.3-0.8); Monocytes Percent Auto 9.3 % (1.7-12.0); Neutrophils Absolute Auto 1.5 10^3/uL (1.4-6.5); Neutrophils Percent Auto 47.4 % (43.0-75.0); Platelet Count 81 10^3/uL (150-450); Red Blood Count 5.77 10^6/uL (4.70-6.10); Red Cell Distribution Width 14.8 % (11.0-15.0); White Blood Count 3.2 10^3/uL (4.0-11.0)
[2024-08-25 09:51] LABS: Bilirubin Urine NEGATIVE (NEGATIVE); Blood Urine TRACE-I (NEGATIVE); Clarity Urine CLEAR (CLEAR); Color Urine LT. YELLOW (YELLOW); Glucose Urine UA NEGATIVE (NEGATIVE); Ketones Urine NEGATIVE (NEGATIVE); Leukocyte Esterase Urine NEGATIVE (NEGATIVE); Nitrite Urine NEGATIVE (NEGATIVE); Protein Urine NEGATIVE (NEG/TRACE); Specific Gravity Urine <=1.005 (1.005-1.025); Urobilinogen Urine 0.2 EU/dL (0.2-1.0); pH Urine 6.5 (5.0-9.0)
[2024-08-25 09:54] LABS: Urine Microscopic Indicated YES
[2024-08-25 09:56] LABS: Alanine Aminotransferase 14 U/L (16-63); Albumin Globulin Ratio 0.9; Alkaline Phosphatase 55 U/L (46-116); Anion Gap 7.8; Aspartate Amino Transferase 19 U/L (15-37); BUN Creatinine Ratio 22.3; Bilirubin Total 0.4 mg/dL (0.2-1.0); Calcium 8.3 mg/dL (8.5-10.1); Carbon Dioxide 32.5 mmol/L (21.0-32.0); Chloride 103 mmol/L (98-107); Estimated GFR (African America >60 (>=60 mL/min/1.73m^2); Estimated GFR (Non-African Ame >60 (>=60 mL/min/1.73m^2); Globulin 3.3 g/dL; Glucose 82 mg/dL (74-106); Potassium 4.3 mmol/L (3.5-5.1); Sodium 139 mmol/L (136-145); Total Protein 6.3 g/dL (6.4-8.2)
[2024-08-25 10:04] LABS: Bacteria Urine TRACE #/HPF (NONE SEEN); Cast Seen? NONE SEEN #/LPF (NONE SEEN); Crystals Seen? None Seen #/HPF (None Seen); Mucus Urine NONE SEEN (NONE SEEN); RBC Urine 0-2 #/HPF (0-2); Squamous Epithelial Cell Urine RARE #/LPF (NONE/RARE); Urine Culture Indicated NO; WBC Urine NONE SEEN #/HPF (NONE SEEN)
--- NOTE | 2024-08-25 10:30 | ED.GENADUL1 ---
HPI HPI - General Adult General Chief complaint: Fall Stated complaint: FALL Time Seen by Provider: 08/25/24 08:35 Source: patient Mode of arrival: ambulance Limitations: no limitations History of Present Illness HPI narrative: Patient has been transported from home by EMS for evaluation of possible fall. Patient's family is not with him at the time of my evaluation and the patient does not know why he is here. and sister showed up later and were able to give a more detailed history. Patient was diagnosed with dementia 3 years ago. He fell down a flight of stairs in May of last year since which time he has been diagnosed with traumatic brain injury. He tends to get agitated and is on Seroquel along with other medications. He takes Seroquel 3 times a day and lately has been getting up at night and walking around so the dose of Seroquel was increased by another 50 mg during the daytime. This was done 3 days ago. Patient's states that he was in the dining area looking out of window and she was in the kitchen but there was a wall them so she could not see him. She heard a sound and when she reached him right away he was still standing but he stated he fell. She thinks that he fell against the window and may have bumped his head. There has been no loss of consciousness and no change in his mental status. He has not complained of dizziness and there has been no vomiting. Both patient's sister and agree that his mental status is at baseline. Related Data Home Medications ?Medication ?Instructions ?Recorded ?Confirmed divalproex 125 mg capsule,delayed 500 mg PO Q12H 08/09/24 08/09/24 release sprinkle quetiapine 50 mg tablet 50 mg PO DAILY 08/09/24 08/10/24 Previous Rx's ?Medication ?Instructions ?Recorded donepezil 10 mg tablet 10 mg PO QHS #30 tabs 08/11/24 duloxetine 30 mg capsule,delayed 30 mg PO DAILY #30 caps 08/11/24 release melatonin 10 mg capsule 10 mg PO DAILY #30 caps 08/11/24 quetiapine 200 mg tablet (Seroquel) 200 mg PO .qhs #30 tabs 08/11/24 quetiapine 50 mg tablet (Seroquel) 50 mg PO BID 1 in am and 1 after 08/11/24 lunch #60 tabs Allergies Allergy/AdvReac Type Severity Reaction Status Date / Time No Known Drug Allergies Allergy Verified 08/25/24 08:28 Opioid HPI Opioid Management Most Recent Opioid Data: Last ORT Total Score 0 08/10/24 02:11 08/10/24 Last ORT Risk Category Low Risk 08/10/24 02:11 08/10/24 Ur Phencyclidine Scrn Negative (NEGATIVE) 08/10/24 01:35 08/10/24 Review of Systems ROS Status of ROS unobtainable due to mental status PFSH [facility] Medical History Dementia ?F03.90 - Unspecified dementia, unspecified severity, without behavioral disturbance, psychotic disturbance, mood disturbance, and anxiety (ICD-10) Elevated TSH ?R79.89 - Other specified abnormal findings of blood chemistry (ICD-10) STEVO (acute kidney injury) ?N17.9 - Acute kidney failure, unspecified (ICD-10) Delirium ?R41.0 - Disorientation, unspecified (ICD-10) Altered mental status ?R41.82 - Altered mental status, unspecified (ICD-10) Hallucinations ?R44.3 - Hallucinations, unspecified (ICD-10) Acute delirium ?R41.0 - Disorientation, unspecified (ICD-10) Altered mental status ?R41.82 - Altered mental status, unspecified (ICD-10) Combative behavior ?R46.89 - Other symptoms and signs involving appearance and behavior (ICD-10) Dementia without behavioral disturbance ?F03.90 - Unspecified dementia, unspecified severity, without behavioral disturbance, psychotic disturbance, mood disturbance, and anxiety (ICD-10) Altered mental status ?R41.82 - Altered mental status, unspecified (ICD-10) GERD (gastroesophageal reflux disease) ?K21.9 - Gastro-esophageal reflux disease without esophagitis (ICD-10) Surgical History History of colostomy reversal ?Z98.890 - Other specified postprocedural states (ICD-10) H/O hernia repair ?Z98.890 - Other specified postprocedural states (ICD-10) ?Z87.19 - Personal history of other diseases of the digestive system (ICD-10) Family History Sister Family history of cancer Family history of diabetes mellitus Family history of hypertension Family history of stroke Mother Family history of diabetes mellitus Family history of hypertension Social History Within the past year, how often did you have a drink containing alcohol: never Score interpretation: A score less than 4 is consistent with normal alcohol consumption. Smoking status: Never smoker Non-prescribed substance use: denies use Previous occupational history: unemployed Highest level of school completed/degree received: Associate degree: academic program Are you now , , , , never or living with a partner: Little interest or pleasure in doing things: not at all Feeling down, depressed, or hopeless: not at all Exam Narrative Exam Narrative: Patient's vitals are stable and he is nondistressed. Pupils are equal and reactive and EOMs are full. No lumps or bumps of felt in the head. There is no C-spine tenderness. There is no facial asymmetry. He moves all extremities actively. Lung sounds are clear to auscultation bilaterally with good air entry. Heart has regular rate and rhythm. Abdomen soft and benign. Constitutional Vital Signs, click to edit/add: Last Vital Signs Temp 97.8 F 08/25/24 08:28 Pulse 61 08/25/24 08:28 Resp 16 08/25/24 08:28 BP 110/87 08/25/24 08:28 Pulse Ox 97 08/25/24 08:28 O2 Del Method Room Air 08/25/24 08:28 Course Vital Signs Vital signs: Vital Signs Temperature 97.8 F 08/25/24 08:28 Pulse Rate 61 08/25/24 08:28 Respiratory Rate 16 08/25/24 08:28 Blood Pressure 110/87 08/25/24 08:28 Pulse Oximetry 97 08/25/24 08:28 Oxygen Delivery Method Room Air 08/25/24 08:28 Temperature 97.8 F 08/25/24 08:28 Pulse Rate 61 08/25/24 08:28 Respiratory Rate 16 08/25/24 08:28 Blood Pressure 110/87 08/25/24 08:28 Pulse Oximetry 97 08/25/24 08:28 Oxygen Delivery Method Room Air 08/25/24 08:28 Medical Decision Making MDM Narrative Medical decision making narrative: Patient presents to the ED for evaluation of fall but according to the history I get he may not have actually fallen to the floor but may be falling against the door or window bumping his head. His mental status is unchanged and baseline labs are unremarkable. He is discharged to home and family is to keep an eye on him. If he continues to have unsteadiness of gait then they should consider backing off on the Seroquel dose. Follow-up as advised with PCP after the weekend and he is to return anytime for worsening symptoms. Lab Data Labs: Lab Results 08/25/24 08/25/24 Range/Units 08:50 09:44 WBC 3.2 L (4.0-11.0) 10^3/uL RBC 5.77 (4.70-6.10) 10^6/uL Hgb 14.3 (14.0-18.0) g/dL Hct 44.5 (42.0-54.0) % MCV 77.1 L (80.0-94.0) fL MCH 24.8 L (25.9-34.0) pg MCHC 32.1 (29.9-35.2) g/dL RDW 14.8 (11.0-15.0) % Plt Count 81 L (150-450) 10^3/uL MPV 9.7 (9.5-13.5) fL Neut % (Auto) 47.4 (43.0-75.0) % Lymph % (Auto) 38.9 (20.5-60.0) % Parke % (Auto) 9.3 (1.7-12.0) % Eos % (Auto) 1.9 (0.9-7.0) % Baso % (Auto) 0.9 (0.2-2.0) % Neut # (Auto) 1.5 (1.4-6.5) 10^3/uL Lymph # (Auto) 1.3 (1.2-3.8) 10^3/uL Parke # (Auto) 0.3 (0.3-0.8) 10^3/uL Eos # (Auto) 0.1 (0.0-0.7) 10^3/uL Baso # (Auto) 0.0 (0.0-0.1) 10^3/uL Abs Immat Gran (auto) 0.05 H (0.00-0.03) 10^3/uL Imm/Tot Granulo (auto) 1.6 H (0.0-0.5) % Sodium 139 (136-145) mmol/L Potassium 4.3 (3.5-5.1) mmol/L Chloride 103 (98-107) mmol/L Carbon Dioxide 32.5 H (21.0-32.0) mmol/L Anion Gap 7.8 BUN 25.0 H (7.0-18.0) mg/dL Creatinine 1.12 (0.70-1.30) mg/dL Est GFR ( Amer) >60 (>=60 mL/min/1.73m^2) Est GFR (Non-Af Amer) >60 (>=60 mL/min/1.73m^2) BUN/Creatinine Ratio 22.3 Glucose 82 (74-106) mg/dL Calcium 8.3 L (8.5-10.1) mg/dL Total Bilirubin 0.4 (0.2-1.0) mg/dL AST 19 (15-37) U/L ALT 14 L (16-63) U/L Alkaline Phosphatase 55 (46-116) U/L Total Protein 6.3 L (6.4-8.2) g/dL Albumin 3.0 L (3.4-5.0) g/dL Globulin 3.3 g/dL Albumin/Globulin Ratio 0.9 Urine Color Lt. yellow (YELLOW) Urine Clarity Clear (CLEAR) Urine pH 6.5 (5.0-9.0) Ur Specific Melvin <=1.005 A (1.005-1.025) Urine Protein Negative (NEG/TRACE) mg/dL Urine Glucose (UA) Negative (NEGATIVE) mg/dL Urine Ketones Negative (NEGATIVE) mg/dL Urine Occult Blood Trace-i (NEGATIVE) Urine Nitrite Negative (NEGATIVE) Urine Bilirubin Negative (NEGATIVE) Urine Urobilinogen 0.2 (0.2-1.0) EU/dL Ur Leukocyte Esterase Negative (NEGATIVE) Urine RBC 0-2 (0-2) #/HPF Urine WBC None seen (NONE SEEN) #/HPF Ur Squamous Epith Cells Rare (NONE/RARE) #/LPF Urine Crystals None seen (None Seen) #/HPF Urine Bacteria Trace A (NONE SEEN) #/HPF Urine Casts None seen (NONE SEEN) #/LPF Urine Mucus None seen (NONE SEEN) Ur Culture Indicated? No Discharge Plan Discharge Chief Complaint: Fall Clinical Impression: Fall Patient Disposition: Home, Self-Care Time of Disposition Decision: 10:25 Mode of Transportation: Private Vehicle Prescriptions / Home Meds: No Action divalproex 125 mg capsule, delayed rel sprinkle 500 mg PO Q12H quetiapine 50 mg tablet 50 mg PO DAILY Rx Instructions: 50 mg in morning 150mg at bedtime donepezil 10 mg Tablet 10 mg PO QHS Qty: 30 11RF duloxetine 30 mg Capsule,Delayed Release(Dr/Ec) 30 mg PO DAILY Qty: 30 11RF quetiapine [Seroquel] 200 mg tablet 200 mg PO .qhs Qty: 30 11RF quetiapine [Seroquel] 50 mg tablet 50 mg PO BID MDD 1 in am and 1 after lunch Qty: 60 11RF Rx Instructions: 1 in am and 1 after lunch melatonin 10 mg capsule 10 mg PO DAILY Qty: 30 11RF Print Language: Amharic Instructions: Fall Prevention (ED) Additional Instructions: If there is increased unsteadiness and tendency to frequent falls, reduce Seroquel dose in the morning and contact your PCP after the weekend for further dose adjustment and follow-up. Return for worsening symptoms. Referrals: Jae Crzu MD [Primary Care Provider] - 1 week
[2024-08-25 10:58] VITALS: BP 114/87; PULSE 68; O2SAT 97
== END 2024-08-25 10:30 | disposition home or self-care (01) ==
PROVIDERS: Emergency Provider Emergency Medicine; PCP Family Medicine
DX: Z04.3 Encounter for examination and observation following other accident (principal); Z91.81 History of falling; F03.90 Unspecified dementia, unspecified severity, without behavioral disturbance, psychotic disturbance, mood disturbance, and anxiety; Z79.899 Other long term (current) drug therapy; Z87.820 Personal history of traumatic brain injury
CPT/HCPCS: 36415; 80053; 81001; 85025; 99284

== ENCOUNTER 2024-09-05 16:21 | Outpatient (OUT) | payer OTHER, SELFPAY | END 2024-09-05 16:22 | disposition home or self-care (01) | LOC: CT 16:22 | PROVIDERS: PCP Family Medicine; Visit Provider Family Medicine | DX: S06.0X9A Concussion with loss of consciousness of unspecified duration, initial encounter (principal) | CPT/HCPCS: 70450 ==

== ENCOUNTER 2024-09-19 14:48 | Outpatient (OUT) | payer OTHER, SELFPAY ==
[2024-09-21 02:12] LABS: Vitamin B12 1559 pg/mL (232-1245)
[2024-09-21 08:09] LABS: PSA, Free 0.45 ng/mL; Prostate Specific Ag 5.8 ng/mL (0.0-4.0)
== END 2024-09-19 14:49 | disposition home or self-care (01) ==
LOC: LAB 14:50
PROVIDERS: PCP Family Medicine; Visit Provider Family Medicine
DX: R41.82 Altered mental status, unspecified (principal)
CPT/HCPCS: 36415; 82306; 82607; 82746; 84153; 84154

== ENCOUNTER 2025-02-06 15:38 | Observation (INO) | payer OTHER, SELFPAY ==
[2025-02-06] VITALS (42 sets, daily range): BP systolic 82–114; BP diastolic 68–89; PULSE 68–130; TEMP 36.8; O2SAT 94–99; BMI 25.8; BMI 54.1
--- NOTE | 2025-02-06 15:42 | ECG_ITS ---
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 Measurements Intervals [place] Rate: 70 P: 38 LA: 126 QRS: 13 QRSD: 92 T: 2 QT: 426 QTc: 313 Interpretive Statements Normal sinus rhytm 1970 with occasional ectopic premature complexes 8102 Low QRS voltage in chest leads 8305 Short QTc interval 9150 abnormal ECG Compared to ECG 08/09/2024 23:32:25 No significant change Electronically Signed On 02-06-2025 18:42:00 EDT by JAYCEE TOLEDO M.D.
--- NOTE | 2025-02-06 15:53 | CT_ITS ---
The [address] [address] Patient Name: ESTELLA JEFFERY MRN: [id number] date: 1965 Sex: M Assigned Patient Location: ED.MAIN Current Patient Location: ED.MAIN Accession/Order Number: [id number] Exam Date: 02/06/2025 17:39 Report Date: 02/06/2025 17:42 At the request of: MEGAN KITCHEN MD Procedure: CT head/brain wo con Unenhanced head CT TECHNIQUE: Contiguous axial imaging of the head. The CT exam was performed using one or more the following dose reduction techniques: Automated exposure control, adjustment of the MA and/or Kv according to patient size, or use of the iterative reconstruction technique. COMPARISON: 09/05/2024 HISTORY: Altered mental status VENTRICLES: Within normal limits ATROPHY: Similar atrophy BRAIN PARENCHYMA: Decreased density of the white matter is most consistent with chronic small vessel disease. HEMORRHAGE: None HERNIATION: No mass effect or herniation INFARCTION: No recent vascular distribution infarction is seen. EXTRA-AXIAL FLUID COLLECTIONS None MIDBRAIN: Unremarkable NAMRATA: Unremarkable MEDULLA: Unremarkable SINUSES: Unremarkable ORBITS: Grossly unremarkable MASTOIDS: Unremarkable BONY STRUCTURES Intact ADDITIONAL FINDINGS: CT/CT head/brain wo con IMPRESSION: No acute findings. Impression dictated by: Kyler Singleton M.D. 02/06/2025 5:42 PM Dictation Location: [facility] Electron[facility] authenticated by: [id number] Y Date: 02/06/2025 17:42
[2025-02-06] MEDS: 0.9 % SODIUM CHLORIDE 1,000 ML 1000 ML IV (16:01)
--- NOTE | 2025-02-06 16:07 | PC.NURSE ---
Pt presents to ER via EMS for loss of consciousness while at home Per EMS report pt has a TBI and they are unsure of his baseline but they report that on arrival patient was not responsive and his BP was very low and he was hypoxic on arrival to us in the ER pt is alert, follows most commands, and will reply words when asked questions Pts family ( and mother) show up and give this nurse the story of what happened to the patient while at home Pts states that he was sitting in his wheelchair when he took a deep gasping breath that caught her attention She states he was [place] in color and did not respond to her voice Pts states patient has POTS and it is normal for him to have low blood pressure, she states that she is directed to administer one midodrine to him when his systolic BP falls below 110. Pt appears [place] in color, cool to the touch Pt is 95-97% on room air - poor reading in digital pulse ox Pt gowned and given a warm blanket, pts family made aware of care plan
--- NOTE | 2025-02-06 16:15 | XR_ITS ---
The [address] [address] Patient Name: ESTELLA JEFFERY MRN: [id number] date: 1965 Sex: M Assigned Patient Location: ED.MAIN Current Patient Location: ED.MAIN Accession/Order Number: [id number] Exam Date: 02/06/2025 17:42 Report Date: 02/06/2025 17:45 At the request of: MEGAN KITCHEN MD Procedure: XR chest 1V Plain film chest Single view HISTORY: Altered mental status COMPARISON: 08/09/2024 FINDINGS: SUPPORT DEVICES: None POSTSURGICAL CHANGES: None HEART: Within normal limits PULMONARY KI: Within normal limits MEDIASTINUM: Unremarkable LUNGS AND PLEURA: No acute lung process, pleural effusion or pneumothorax identified. BONY STRUCTURES: Intact ADDITIONAL FINDINGS None XR/XR chest 1V IMPRESSION: No acute process. Impression dictated by: Kyler Singleton M.D. 02/06/2025 5:45 PM Dictation Location: [facility] Electronically authenticated by: [id number] Y Date: 02/06/2025 17:45
--- OUTSIDE RECORDS SUMMARY | 2025-02-06 16:50 | XMS_ITS | CCD ---
Author Organization [facility] Care Team Providers Care Cost Accounting Clerk Name Role Phone NAYA IZAGUIRRE Admitting Unavailable JAE LOPEZ Primary Care Unavailable JAE LOPEZ Referring Unavailable NAYA IZAGUIRRE Attending Unavailable [place] Procedure Practitioner Unavailab le NAYA IZAGUIRRE Surgeon Unavailable JAE LOPEZ Primary Care Unavailable SELF, REFERRED Referring Unavailable WILLAM IZAGUIRREIN Attending Unavailable ZINA JIASULTANAIN Admitting Unavailable [place] Procedure Practitioner Unavailab WILLAM WolfIN Surgeon Unavailable [...] Care Physician MD Danni Graham Attending Provider [phone] MD Jae Lopez Primary Care Provider MAITE MORRIS Attending Unavailable JAE LOPEZ Primary Care Unavailable Danni Graham Admitting Unavailable Danni Graham Attending Unavailable Danni Graham Referring Unavailable Jae Lopez MD Primary Care Provider Danni Graham Attending Unavailable Danni Graham Attending Unavailable Jae Lopez Referring Unavailable Danni Graham Attending Unavailable Lue, Danni M. Admitting Unavailable Lue, Danni M. Referring Unavailable Lue, Danni M. Attending Unavailable Lue, Danni M Admitting Unavailable Lue, Danni M Attending Unavailable Hoy, Jae M Primary Care Unavailable Elliott Lee Admitting Unavailab le Elliott Lee Attending Unavailab le Hoy, Jae M Primary Care Unavailable Jae Lopez MD Primary Care Provider [phone] FIDELINA FISHER Attending Unavailable HOY, JAE M Primary Care [...] Unavailable HOY, JAE M Primary Care Unavailable JAZ ART Attending Unavailable HOY, JAE M Referring Unavailable HOY, JAE M Primary Care Unavailable ALF NICHOL M Admitting Unavailable ALF, NICHOL M Attending Unavailable HOY, JAE M Referring Unavailable HOY, JAE M Primary Care Unavailable JESSICA JOHNSON I Consulting Unavailable MILTON CHAMBERS Consulting Unavailable LAILA MAY Consulting Unavailable MINA FRANKS Consulting Unavailable SONYA ASTUDILLO Consulting Unavailable KELLEY SOFIA Consulting Unavailable BETO VILLAR Consulting Unavailable ALSAKKA, MOHAMAD S Referring [...] Unavailable HOY, JAE M Primary Care Unavailable RACHELE LOPEZ Attending Unava ilable HOY, JAE M Referring Unavailable HOY, JAE M Primary Care Unavailable HOY, JAE M Primary Care Unavailable CARDIOLOGY, [facility] Consulting Unavailable ELANA BENITEZ Admitting Unavailable ELANA BENITEZ Attending Unavailable MARIA ELENA MEDELLIN Consulting Unavailable MERCEDES TAVAREZ Consulting Unavailable [facility] Consulting Unavailab le Allergies Allergy Classification Reported Allergen(s) Allergy Type Date of Onset Reaction(s) Facility (1 source) 00381,00 Drug allergy (disorder) 9 [facility] Repository (9 sources) diphenhydrAMINE ; Translations: [DIPHENHYDRAMIN E] Drug Allergy 5 Abnormal Behavior Work4 Work Phone: (1 source) No Known Medication Allergies; Translations: [No Known Medication Allergies] Propensity to adverse reactions (disorder) [facility] Repository (6 sources) LORazepam; Translations: [LORAZEPAM] Drug Allergy 5 Abnormal Behavior Work4 Medications Current Medications Medication Drug Class(es) Dates Sig (Normalized) Sig (Original) acetaminophen 325 mg oral tablet (7 sources) Start: 07-06-2024 End: 07-20-2024 take 1 tablet by mouth every four hours as needed for headache 650 mg, oral, Every 4 hours PRN, headaches, Temperature greater than 38.3 C, Starting on Tue07/20/24 at 1249, [Warning: Total Acetaminophen not to exceed more than 4 grams (4000 mg) in 24 hours] take 1 tablet by romario th every six hours as needed for [...] a note to see current settings/supplies/DME information. cyproheptadine hydrochloride 4 mg oral tablet (4 sources) take 1 tablet by mouth at bedtime cyproheptadine (PERIACTIN) 4 mg tablet Take 1 tablet (4 mg total) by mouth in the morning and at bedtime. Active docusate sodium 50 mg / sennosides, senior living 8.6 mg oral tablet (1 source) Start : 07-06 take 1 tablet by mouth every twelve hours as needed for constipation donepezil hydrochloride 5 mg oral tablet (20 sources) Start : 08-11 End: 03-09 take 5 mg by mouth once daily 5 mg, oral, Nightly, First dose on Tue07/06/24 at 2200, Look-alike/sound-a like medication - verify indication for use. take 1 tablet by mouth once terrance y donepeziL (ARICEPT) 10 mg tablet Take 1 tablet (10 mg total) by mouth nightly. Active Comment on above: Take 1 tablet by romario th once daily. TAKE 1 TABLET BY ROMARIO TH EVERY DAY DULoxetine 30 mg delayed release oral capsule (9 sources) Serotonin and Norepinephrine Reuptake Inhibitor Start: 09-30-2024 DULoxetine (CYMBALTA) 30 mg capsule Take 1 capsule (30 mg total) by mouth. 09/30/2024 Active Start: 07-06-2024 End: 08-20-2024 DULoxetine (CYMBALTA) 20 mg capsule Take 20 mg by mouth. 07/21/2024 08/20/2024 Active 0.4 ml enoxaparin sodium 100 mg/ml prefilled syringe (1 source) Low Molecular Weight Heparin Start: 07-17-2024 inject 40 mg by subcutaneous injection once daily 40 mg, subcutaneous, Daily, First dose on Tue07/17/24 at 1630, Look-alike/sound-alike medication - verify indication for use. FLUoxetine 20 mg oral capsule (2 sources) Serotonin Reuptake Inhibitor End: 07-22-2024 take 1 capsule by mouth in the morning FLUoxetine (PROzac) 20 mg capsule Take 1 capsule (20 mg total) by mouth in the morning. 07/22/2024 Discontinued (Stop Taking at Discharge) FREESTYLE LITE METER kit (8 sources) Start: 09-08-2018 FREESTYLE LITE METER kit 09/08/2018 Active Start: [...] / neomycin 3.5 mg/ml / polymyxin b 54528 unt/ml otic suspension (3 sources) Aminoglycoside Antibacterial, [...] at Discharge) melatonin 5 mg oral tablet (6 sources) Start: 07-20-2024 take 10 mg by mouth once daily 10 mg, oral, Nightly, First dose (after last modification) on Tue07/20/24 at 2200 Start: 07-08-2024 End: 07-20-2024 take 5 mg by mouth once daily 5 mg, oral, Nightly, Fir st dose on 07/08/24 at 2200 take 1 tablet by romario th once daily melatonin 10 mg tablet Take 1 tablet by mouth nightly. Active midodrine hydrochloride 2.5 mg oral tablet (4 sources) alpha-Adrenergic Agonist Start: 10-23-2024 End: 03-06-2025 take 1 tablet by mouth twice daily midodrine (PROAMATINE) 2.5 mg tablet Take 1 tablet (2.5 mg total) by mouth 2 (two) times a day for 120 days. Hold for systolic bp over 110 60 tablet 3 11/06/2024 03/06/2025 Active 24 hr nicotine 0.875 mg/hr transdermal system (1 source) Cholinergic Nicotinic Agonist Start: 07-06-2024 ondansetron 4 mg disintegrating oral tablet (1 source) Serotonin-3 Receptor Antagonist Start: 07-06-2024 take 1 tablet by mouth (buccal) every eight hours as needed for nausea and vomiting pantoprazole 40 mg delayed release oral tablet (5 sources) Proton Pump Inhibitor Start: 07-06-2024 40 mg, oral, Every morning before breakfast, First dose on 07/06/24 at 0900, Look-alike/sound-a like medication - verify indication for use. If patient is receiving enteral feeding, consider alternative PPI or continue IV pantoprazole until the delayed-release tablet can be taken orally, Indication: GERD prochlorperazine (COMPAZINE) injection 5 mg (1 source) Start: 07-20-2024 take 5 mg intravenously every six hours as needed prochlorperazine (COMPAZINE) injection 5 mg QUEtiapine 50 mg oral tablet (14 sources) Atypical Antipsychotic Start: 07-20-2024 QUEtiapine (SEROQUEL) 50 mg tablet Take by mouth. 07/20/2024 Active Start: 07-20-2024 take 3 tablets by mo uth once daily, then take 1 tablet by [...] Look-alike/sound-alike medication - verify indication for use. take 1.5 tablets by mouth once daily QUEtiapine (SEROquel) 200 mg tablet Take 1.5 tablets (300 mg total) by mouth nightly. Active divalproex sodium 125 mg delayed release oral capsule (10 sources) Mood Stabilizer, Anti-epileptic Agent Start: 10-23-2024 End: 11-22-2024 divalproex sprinkle (DEPAKOTE SPRINKLE) 125 mg capsule Take 2 capsules (250 mg total) by mouth at noon for 30 days. 60 capsule 10/23/2024 11/22/2024 Active Start: 09-19-2024 End: 11-22-2024 take 4 capsules by mouth in the morning, then take 4 capsules by mouth at bedtime divalproex sprinkle (DEPAKOTE SPRINKLE) 125 mg capsule Take 4 capsules (500 mg total) by mouth in the morning and 4 capsules (500 mg total) before bedtime. Do all this for 30 days. Morning and evening. 240 capsule 10/23/2024 11/22/2024 Active Start: 07-20-2024 End: 08-19-2024 divalproex sprinkle (DEPAKOT E SPRINKLES) 125 mg capsule Take 500 mg [...] hydrochloride 5 mg oral tablet (18 sources) D-llfxou-H-aspartate Receptor Antagonist Start: 11-17-2022 End: 07-30-2024 take 1 tablet by mouth twice daily memantine (NAMENDA) 5 mg tablet Indications: Alzheimer's disease (HCC) Take 1 tablet by mouth twice daily. 180 tablet 1 11/18/2022 07/30/2024 Discontinued (Course of therapy completed) Comment on above: Take 1 tablet by romario th twice daily. omeprazole 20 mg delayed [...] Episodic Asthma (4 sources) Asthma 01-04-2024 Chronic Cardiac dysrhythmias (6 sources) Bradycardia; Translations: [Bradycardia, unspecified] Onset: 5 10-19-2024 Episodic Delirium, dementia, and amnestic and other cognitive disorders (20 sources) Alzheimer's disease; Translations: [Alzheimer's disease, unspecified] Onset: 01-17-202 5 Chronic Diabetes mellitus without complication (5 sources) Other abnormal glucose; Translations: [Prediabetes] Onset: 2 01-04-2024 Episodic Disorders of lipid metabolism (20 sources) Hyperlipidemia; Translations: [Hyperlipidemia, unspecified] 12-02-2022 Chronic Esophageal disorders (4 sources) Gastroesophageal reflux disease 01-04-2024 Chronic Intracranial injury (2 sources) History of traumatic brain injury; Translations: [Personal history of traumatic brain injury] 08-12-2024 Episodic Nervous system congenital anomalies (3 sources) Colloid cyst of third ventricle; 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] Onset: 5 10-16-2024 Chronic Noninfectious gastroenteritis (8 sources) Acute gastroenteritis; Translations: [Chronic diarrhea] 01-04-2024 Episodic Nonspecific chest pain (1 source) Chest pain, unspecified; Translations: [Chest pain, unspecified] Onset: 5 Episodic Nutritional deficiencies (5 sources) Vitamin D deficiency, unspecified; Translations: [Vitamin D deficiency] Onset: 2 01-04-2024 Chronic Osteoarthritis (4 sources) Unspecified osteoarthritis, unspecified site; Translations: [UNSPECIFIED OSTEOARTHRITIS UNS SITE] Onset: 3 Chronic Other circulatory disease (1 source) Elevated blood-pressure reading without diagnosis of hypertension; Translations: [Elevated blood-pressure reading, without diagnosis of hypertension] Episodic Other circulatory disease (3 sources) Orthostatic hypotension; Translations: [Orthostatic hypotension] Onset: 5 11-06-2024 Episodic Other ear and sense organ disorders [...] Perforation of small intestine 01-04-2024 Episodic Other gastrointestinal disorders (1 source) Dysphagia, unspecified; Translations: [Dysphagia, unspecified] Onset: 5 Episodic Other nervous system disorders (2 sources) [...] unspecified] Onset: 5 Episodic Residual codes; unclassified (2 sources) Clouded consciousness; Translations: [Disorientation, unspecified] 10-16-2024 Episodic Residual codes; unclassified (1 source) Disorientation, unspecified; Translations: [Disorientation, unspecified] Onset: 5 Episodic Syncope (1 source) Syncope Onset: 5 Episodic Unclassified (1 source) Medical Screening Onset: 5 Unclassified (1 source) ILL Onset: 5 Unclassified (1 source) tele-neuro consult Janice Onset: 5 Unclassified (1 source) Trauma Onset: Unclassified (1 source) Unspecified dementia, unspecified severity, with other behavioral disturbance; Translations: [Unspecified dementia, unspecified severity, with other behavioral disturbance] Onset: 5 Unclassified (1 source) Autogenerated Problem Onset: 5 12-18-2024 Past or Other Problems Problem Classification Problem Date Documented Da te Episodic/Chronic Crushing injury or internal injury (7 sources) Laceration of ulnar artery; Translations: [Laceration of ulnar artery at forearm level, left arm, initial encounter] Onset: 11-24-2019 11-24-2019 Episodic Deficiency and other anemia (1 source) Anemia, unspecified; Translations: [ANEMIA UNSPECIFIED] Onset: 01-16-2022 Episodic Mood disorders (5 sources) Mood disorders Onset: 10-15-2024 10-15-2024 Other aftercare (1 source) Encounter for follow-up examination after completed treatment for conditions other than malignant neoplasm; Translations: [Encounter for follow-up examination after completed treatment for conditions other than malignant neoplasm] Onset: 07-11-2024 Episodic Other ear and sense organ disorders (20 sources) Bilateral tinnitus; Translations: [Tinnitus, bilateral] Onset: 04-27-2022 04-27-2022 Episodic Other screening for suspected conditions (not mental disorders or infectious disease) (3 sources) Raised prostate specific antigen; Translations: [Elevated prostate specific antigen [PSA]] Onset: 01-11-2024 Episodic Residual codes; unclassified (4 sources) Other amnesia; Translations: [OTHER AMNESIA] Onset: 01-21-2022 Episodic Residual codes; unclassified (9 sources) Altered mental status; Translations: [Altered mental status, unspecified] Onset: 07-06-2024 07-06-2024 Episodic Residual codes; unclassified (1 source) Pain, unspecified; Translations: [Pain, unspecified] Onset: 07-03-2024 Episodic Residual codes; unclassified (1 source) Other specified personal risk factors, not elsewhere classified; Translations: [Other specified personal risk factors, not elsewhere classified] Onset: 07-06-2024 Episodic Residual codes; unclassified (1 source) Altered mental status, unspecified; Translations: [Altered mental status, unspecified] Onset: 07-06-2024 Episodic Unclassified (5 sources) Onset: 10-16-2024 10-16-2024 Results Test Name Value Interpretation Reference Range Facility [facility] 10-31-2024 [facility]CO Letter Text Normal Garber [facility] jennifer [place] BASIC METABOLIC PANELon 05-0 Anion gap [Moles/Vol] 6 mmol/L Normal 5-15 [facility] Comment on above: Performed By: #### 3 4148-7, 55346-9, BMP, CBC #### [facility] ([id number]) [address], [address] [place] [address] Calcium [Mass/Vol] 8.2 mg/dL Low 8.5-10.5 [facility] Comment on above: Performed By: #### 3 4148-7, 00822-5, BMP, CBC #### [facility] ([id number]) [address], [address] [place] [address] Chloride [Moles/Vol] 104 mmol/L Normal 98-109 [facility] Comment on above: Performed By: #### 3 4148-7, 71249-4, BMP, CBC #### [facility] ([id number]) [address], [address] [place] [address] CO2 [Moles/Vol] 29 mmol/L Normal 22-32 [facility] Comment on above: Performed By: #### 3 4148-7, 07277-6, BMP, CBC #### [facility] ([id number]) [address], [address] [place] [address] Creatinine [Mass/Vol] 1.13 mg/dL Normal 0.60-1.30 [facility] Comment on above: Result Comment: METH OD TRACEABLE TO IDMS STANDARD Performed By: #### 3 4148-7, 50239-8, BMP, CBC #### [facility] ([id number]) [address], [address] [place] [address] GFR/1.73 sq M.predicted among non-blacks MDRD (S/P/Bld) [Vol rate/Area] 75 mL/min/{1.73_m2} Normal >=60 [facility] Comment on above: Result Comment: [facility] eGFR is based on the CKD-EPI 2020 equation that does not use a race coefficient. Performed By: #### 3 4148-7, 66073-1, BMP, CBC #### [facility] ([id number]) [address], [address] [address] Glucose [Mass/Vol] 84 mg/dL Normal 65-99 [facility] Comment on above: Performed By: #### 3 4148-7, 80852-2, BMP, CBC #### [facility] ([id number]) [address] [address] Potassium [Moles/Vol] 4.2 mmol/L Normal 3.5-5.0 [facility] Comment on above: Performed By: #### 3 4148-7, 40821-8, BMP, CBC #### [facility] ([id number]) [address] [address] Sodium [Moles/Vol] 139 mmol/L Normal 134-146 [facility] Comment on above: Performed By: #### 3 4148-7, 92812-0, BMP, CBC #### [facility] ([id number]) [address] [address] Urea nitrogen [Mass/Vol] 23 mg/dL Normal 5-23 [facility] Comment on above: Performed By: #### 3 4148-7, 86742-9, BMP, CBC #### [facility] ([id number]) [address] [address] CBC (NO DIFF)on 10-24-2024 Erythrocyte distribution width (RBC) [Ratio] 17.1 % High 11.5-15 [facility] Comment on above: Performed By: #### 3 4148-7, 98330-2, BMP, CBC #### [facility] ([id number]) [address], [address] [place] [address] Hematocrit (Bld) [Volume fraction] 38.9 % Low 39-50 [facility] Comment on above: Performed By: #### 3 4148-7, 08338-5, BMP, CBC #### [facility] ([id number]) [address], [address] [place] [address] Hemoglobin (Bld) [Mass/Vol] 13.0 g/dL Normal 13-17 [facility] Comment on above: Performed By: #### 3 4148-7, 89504-2, BMP, CBC #### [facility] ([id number]) [address], [address] [place] [address] MCH (RBC) [Entitic mass] 25.5 pg Low 27-34 [facility] Comment on above: Performed By: #### 3 4148-7, 73508-0, BMP, CBC #### [facility] ([id number]) [address], [address] [place] [address] MCHC (RBC) [Mass/Vol] 33.3 g/dL Normal 32-36 [facility] Comment on above: Performed By: #### 3 4148-7, 77537-5, BMP, CBC #### [facility] ([id number]) [address], [address] [place] [address] MCV (RBC) [Entitic vol] 77 fL Low 80-100 [facility] Comment on above: Performed By: #### 3 4148-7, 10314-5, BMP, CBC #### [facility] ([id number]) [address], [address] [place] [address] Platelet mean volume (Bld) [Entitic vol] 6.8 fL Low 7-12 [facility] Comment on above: Performed By: #### 3 4148-7, 03115-4, BMP, CBC #### [facility] ([id number]) [address], [address] [place] [address] Platelets (Bld) [#/Vol] 56 10*3/uL Low 150-450 [facility] Comment on above: Performed By: #### 3 4148-7, 18839-9, BMP, CBC #### [facility] ([id number]) [address], [address] [place] [address] RBC COUNT 5.08 X10E12/L Normal 4.1-5.7 [facility] Comment on above: Performed By: #### 3 4148-7, 85494-3, BMP, CBC #### [facility] ([id number]) [address], [address] [place] [address] WBC (Bld) [#/Vol] 3.8 10*3/uL Low 4-11 [facility] Comment on above: Performed By: #### 3 4148-7, 91404-2, BMP, CBC #### [facility] ([id number]) [address], [address] [place] [address] MAGNESIUMon 10-24-2024 Magnesium [Mass/Vol] 2.1 mg/dL Normal 1.8-2.6 [facility] Comment on above: Performed By: #### 3 4148-7, 74719-6, BMP, CBC #### [facility] ([id number]) [address], [address] [place] [address] BASIC METABOLIC PANELon 05-0 Anion gap [Moles/Vol] 8 mmol/L Normal 5-15 [facility] Comment on above: Performed By: #### 3 4148-7, 36766-4, BMP, CBC #### [facility] ([id number]) [address], [address] [place] [address] Calcium [Mass/Vol] 8.2 mg/dL Low 8.5-10.5 [facility] Comment on above: Performed By: #### 3 4148-7, 29190-3, BMP, CBC #### [facility] ([id number]) [address], [facility] [address] [place] [address] Chloride [Moles/Vol] 102 mmol/L Normal 98-109 [facility] Comment on above: Performed By: #### 3 4148-7, 99287-9, BMP, CBC #### [facility] ([id number]) [address], [facility] [address] [place] [address] CO2 [Moles/Vol] 29 mmol/L Normal 22-32 [facility] Comment on above: Performed By: #### 3 4148-7, 07711-8, BMP, CBC #### [facility] ([id number]) [address], [address] [place] [address] Creatinine [Mass/Vol] 1.13 mg/dL Normal 0.60-1.30 [facility] Comment on above: Result Comment: METH OD TRACEABLE TO IDMS STANDARD Performed By: #### 3 4148-7, 90073-1, BMP, CBC #### [facility] ([id number]) [address], [address] [place] [address] GFR/1.73 sq M.predicted among non-blacks MDRD (S/P/Bld) [Vol rate/Area] 75 mL/min/{1.73_m2} Normal >=60 [facility] Comment on above: Result Comment: Repo rted eGFR is based on the CKD-EPI 2020 equation that does not use a race coefficient. Performed By: #### 3 4148-7, 86779-6, BMP, CBC #### [facility] ([id number]) [address], [address] [place] [address] Glucose [Mass/Vol] 88 mg/dL Normal 65-99 [facility] Comment on above: Performed By: #### 3 4148-7, 94971-8, BMP, CBC #### [facility] ([id number]) [address], [address] [place] [address] Potassium [Moles/Vol] 4.2 mmol/L Normal 3.5-5.0 [facility] Comment on above: Performed By: #### 3 4148-7, 10974-3, BMP, CBC #### [facility] ([id number]) [address], [facility] [address] [place] [address] Sodium [Moles/Vol] 139 mmol/L Normal 134-146 [facility] Comment on above: Performed By: #### 3 4148-7, 17425-8, BMP, CBC #### [facility] ([id number]) [address], [address] [place] [address] Urea nitrogen [Mass/Vol] 24 mg/dL High 5-23 [facility] Comment on above: Performed By: #### 3 4148-7, 18230-9, BMP, CBC #### [facility] ([id number]) [address], [facility] [address] [place] [address] CBC (NO DIFF)on 10-23-2024 Erythrocyte distribution width (RBC) [Ratio] 17.1 % High 11.5-15 [facility] Comment on above: Performed By: #### 3 4148-7, 18239-8, BMP, CBC #### [facility] ([id number]) [address], [address] [place] [address] Hematocrit (Bld) [Volume fraction] 39.4 % Normal 39-50 [facility] Comment on above: Performed By: #### 3 4148-7, 05670-3, BMP, CBC #### [facility] ([id number]) [address], [address] [place] [address] Hemoglobin (Bld) [Mass/Vol] 13.0 g/dL Normal 13-17 [facility] Comment on above: Performed By: #### 3 4148-7, 63447-4, BMP, CBC #### [facility] ([id number]) [address], [address] [place] [address] MCH (RBC) [Entitic mass] 25.1 pg Low 27-34 [facility] Comment on above: Performed By: #### 3 4148-7, 03545-2, BMP, CBC #### [facility] ([id number]) [address], [facility] [address] [place] [address] MCHC (RBC) [Mass/Vol] 33.1 g/dL Normal 32-36 [facility] Comment on above: Performed By: #### 3 4148-7, 00065-3, BMP, CBC #### [facility] ([id number]) [address], [address] [place] [address] MCV (RBC) [Entitic vol] 76 fL Low 80-100 [facility] Comment on above: Performed By: #### 3 4148-7, 69493-3, BMP, CBC #### [facility] ([id number]) [address], [facility] [address] [place] [address] Platelet mean volume (Bld) [Entitic vol] 6.7 fL Low 7-12 [facility] Comment on above: Performed By: #### 3 4148-7, 69216-5, BMP, CBC #### [facility] ([id number]) [address], [address] [place] [address] Platelets (Bld) [#/Vol] 55 10*3/uL Low 150-450 [facility] Comment on above: Performed By: #### 3 4148-7, 16584-1, BMP, CBC #### [facility] ([id number]) [address], [address] [place] [address] RBC COUNT 5.18 X10E12/L Normal 4.1-5.7 [facility] Comment on above: Performed By: #### 3 4148-7, 83660-1, BMP, CBC #### [facility] ([id number]) [address], [address] [place] [address] WBC (Bld) [#/Vol] 3.6 10*3/uL Low 4-11 [facility] Comment on above: Performed By: #### 3 4148-7, 31458-4, BMP, CBC #### [facility] ([id number]) [address], [address] [place] [address] MAGNESIUMon - Magnesium [Mass/Vol] 2.1 mg/dL Normal 1.8-2.6 [facility] Comment on above: Performed By: #### 3 4148-7, 20994-3, BMP, CBC #### [facility] ([id number]) [address], [address] [place] [address] BASIC METABOLIC PANELon 05-0 Anion gap [Moles/Vol] 6 mmol/L Normal 5-15 [facility] Comment on above: Performed By: #### 3 4148-7, 99826-1, BMP, CBC #### [facility] ([id number]) [address], [address] [place] [address] Calcium [Mass/Vol] 8.6 mg/dL Normal 8.5-10.5 [facility] Comment on above: Performed By: #### 3 4148-7, 22337-3, BMP, CBC #### [facility] ([id number]) [address], [address] [place] [address] Chloride [Moles/Vol] 101 mmol/L Normal 98-109 [facility] Comment on above: Performed By: #### 3 4148-7, 35384-0, BMP, CBC #### [facility] ([id number]) [address], [address] [place] [address] CO2 [Moles/Vol] 32 mmol/L Normal 22-32 [facility] Comment on above: Performed By: #### 3 4148-7, 19615-5, BMP, CBC #### [facility] ([id number]) [address], [facility] [address] [place] [address] Creatinine [Mass/Vol] 1.31 mg/dL High 0.60-1.30 [facility] Comment on above: Result Comment: METH OD TRACEABLE TO IDMS STANDARD Performed By: #### 3 4148-7, 33174-6, BMP, CBC #### [facility] ([id number]) [address], [address] [address] GFR/1.73 sq M.predicted among non-blacks MDRD (S/P/Bld) [Vol rate/Area] 63 mL/min/{1.73_m2} Normal >=60 [facility] Comment on above: Result Comment: [facility] eGFR is based on the CKD-EPI 2020 equation that does not use a race coefficient. Performed By: #### 3 4148-7, 95218-6, BMP, CBC #### [facility] ([id number]) [address] [address] Glucose [Mass/Vol] 77 mg/dL Normal 65-99 [facility] Comment on above: Performed By: #### 3 4148-7, 89458-6, BMP, CBC #### [facility] ([id number]) [address] [address] [place] [address] Potassium [Moles/Vol] 4.5 mmol/L Normal 3.5-5.0 [facility] Comment on above: Performed By: #### 3 4148-7, 14664-7, BMP, CBC #### [facility] ([id number]) [address], [facility] [address] [place] [address] Sodium [Moles/Vol] 139 mmol/L Normal 134-146 [facility] Comment on above: Performed By: #### 3 4148-7, 91741-7, BMP, CBC #### [facility] ([id number]) [address], [facility] [address] [place] [address] Urea nitrogen [Mass/Vol] 24 mg/dL High 5-23 [facility] Comment on above: Performed By: #### 3 4148-7, 60285-2, BMP, CBC #### [facility] ([id number]) [address], [address] [address] CBC (NO DIFF)on 10-22-2024 Erythrocyte distribution width (RBC) [Ratio] 17.2 % High 11.5-15 [facility] Comment on above: Performed By: #### 3 4148-7, 05020-3, BMP, CBC #### [facility] ([id number]) [address], [address] [address] Hematocrit (Bld) [Volume fraction] 40.6 % Normal 39-50 [facility] Comment on above: Performed By: #### 3 4148-7, 77082-7, BMP, CBC #### [facility] ([id number]) [address], [address] [address] Hemoglobin (Bld) [Mass/Vol] 13.1 g/dL Normal 13-17 [facility] Comment on above: Performed By: #### 3 4148-7, 62076-9, BMP, CBC #### [facility] ([id number]) [address] [address] MCH (RBC) [Entitic mass] 24.7 pg Low 27-34 [facility] Comment on above: Performed By: #### 3 4148-7, 47509-4, BMP, CBC #### [facility] ([id number]) [address], [address] [place] [address] MCHC (RBC) [Mass/Vol] 32.2 g/dL Normal 32-36 [facility] Comment on above: Performed By: #### 3 4148-7, 61779-9, BMP, CBC #### [facility] ([id number]) [address], [facility] [address] [place] [address] MCV (RBC) [Entitic vol] 77 fL Low 80-100 [facility] Comment on above: Performed By: #### 3 4148-7, 68110-9, BMP, CBC #### [facility] ([id number]) [address], [facility] [address] [place] [address] Platelet mean volume (Bld) [Entitic vol] 6.9 fL Low 7-12 [facility] Comment on above: Performed By: #### 3 4148-7, 15040-2, BMP, CBC #### [facility] ([id number]) [address], [facility] [address] [place] [address] Platelets (Bld) [#/Vol] 65 10*3/uL Low 150-450 [facility] Comment on above: Performed By: #### 3 4148-7, 32359-8, BMP, CBC #### [facility] ([id number]) [address], [facility] [address] [place] [address] RBC COUNT 5.29 X10E12/L Normal 4.1-5.7 [facility] Comment on above: Performed By: #### 3 4148-7, 35899-1, BMP, CBC #### [facility] ([id number]) [address], [facility] [address] [place] [address] WBC (Bld) [#/Vol] 4.4 10*3/uL Normal 4-11 [facility] Comment on above: Performed By: #### 3 4148-7, 95491-3, BMP, CBC #### [facility] ([id number]) [address], [address] [place] [address] FREE LIGHT CHAINSon 10-23-19 25 FREE SHENA/LAMBD RATIO 1.25 Normal 0.26-1.65 [facility] Comment on above: Performed By: #### 3 4148-7, 36555-5, BMP, CBC #### [facility] ([id number]) [address], [address] [place] [address] FREE KAPPA LT CHAINS 2.35 mg/dL High 0.33-1.94 [facility] Comment on above: Performed By: #### 3 4148-7, 61129-2, BMP, CBC #### [facility] ([id number]) [address], [address] [place] [address] FREE LAMBDA LT CHAINS 1.88 mg/dL Normal 0.57-2.63 [facility] Comment on above: Performed By: #### 3 4148-7, 18682-6, BMP, CBC #### [facility] ([id number]) [address], [address] [place] [address] MAGNESIUMon 10-22-2024 Magnesium [Mass/Vol] 2.1 mg/dL Normal 1.8-2.6 [facility] Comment on above: Performed By: #### 3 4148-7, 69865-4, BMP, CBC #### [facility] ([id number]) [address], [address] [address] MR CERVICAL SPINE WO CONTon 10-22-2024 MR CERVICAL SPINE WO CONT MR CERVICAL SPINE WO CONT Study: Cervical spine MRI without contrast. History: Recurrent falling episodes Comparison: None. Technique: Routine multiplanar multisequence MR imaging of the cervical spine was performed without contrast. Findings: C2-3 shows minimal posterior disc bulging without canal stenosis or foraminal narrowing C3-4 shows mild posterior disc bulging without canal stenosis. 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 Technique: Routine multiplanar multisequence MR imaging of the lumbar spine was performed without contrast. Findings: L1-2 appropriate L2-3 shows minimal posterior disc bulging without stenosis or foraminal narrowing L3-4 L4-5 and L5-S1 appropriate excepting for mild degenerative disc signal There is a transitional segment with a rudimentary disc space between S1 and S2. Appropriate signal within the vertebra posterior elements and distal cord which terminates at thoracolumbar junction IMPRESSION: Mild diffuse disc disease but no stenosis or foraminal narrowing and no acute findings. Finalized by Wilson Lu MD on 10/22/2024 7:24 AM Normal [facility] SERUM IMMUNOFIXATIONon 10-22 IgA [Mass/Vol] 285 mg/dL Normal 68-378 [facility] Comment on above: Performed By: #### 3 4148-7, 87886-4, BMP, CBC #### [facility] ([id number]) [address], [address] [place] [address] IgG [Mass/Vol] 1378 mg/dL Normal 635-1741 [facility] Comment on above: Performed By: #### 3 4148-7, 07236-6, BMP, CBC #### [facility] ([id number]) [address], [address] [place] [address] IgM [Mass/Vol] 54 mg/dL Normal 45-281 [facility] Comment on above: Performed By: #### 3 4148-7, 29613-8, BMP, CBC #### [facility] ([id number]) [address], [address] [place] [address] IMMUNOFIX INTERP Unremarkable pattern and quantitation, no monoclonal bands Normal [facility] Comment on above: Performed By: #### 3 4148-7, 75565-2, BMP, CBC #### [facility] ([id number]) [address], [address] [place] [address] VALPROIC ACID, FREE, Son VALPROIC ACID, FREE 22 mcg/mL Normal 5-25 [facility] Comment on above: Result Comment: Test Performed by: [place] [address] Digital Community Manager: Eduardo Clark Ph.D.; CLIA# [id number] Performed By: #### 3 4148-7, 34818-3, BMP, CBC #### [facility] ([id number]) [address], [address] [place] [address] BASIC METABOLIC PANELon 05-0 Anion gap [Moles/Vol] 6 mmol/L Normal 5-15 [facility] Comment on above: Performed By: #### 3 4148-7, 19427-9, BMP, CBC #### [facility] ([id number]) [address], [address] [place] [address] Calcium [Mass/Vol] 8.8 mg/dL Normal 8.5-10.5 [facility] Comment on above: Performed By: #### 3 4148-7, 93997-9, BMP, CBC #### [facility] ([id number]) [address], [address] [place] [address] Chloride [Moles/Vol] 101 mmol/L Normal 98-109 [facility] Comment on above: Performed By: #### 3 4148-7, 66961-7, BMP, CBC #### [facility] ([id number]) [address], [address] [place] [address] CO2 [Moles/Vol] 32 mmol/L Normal 22-32 [facility] Comment on above: Performed By: #### 3 4148-7, 32541-0, BMP, CBC #### [facility] ([id number]) [address], [facility] [address] [place] [address] Creatinine [Mass/Vol] 1.04 mg/dL Normal 0.60-1.30 [facility] Comment on above: Result Comment: METH OD TRACEABLE TO IDMS STANDARD Performed By: #### 3 4148-7, 00870-7, BMP, CBC #### [facility] ([id number]) [address], [address] [address] GFR/1.73 sq M.predicted among non-blacks MDRD (S/P/Bld) [Vol rate/Area] 83 mL/min/{1.73_m2} Normal >=60 [facility] Comment on above: Result Comment: [facility] eGFR is based on the CKD-EPI 2020 equation that does not use a race coefficient. Performed By: #### 3 4148-7, 47922-1, BMP, CBC #### [facility] ([id number]) [address], [facility] [address] [place] [address] Glucose [Mass/Vol] 87 mg/dL Normal 65-99 [facility] Comment on above: Performed By: #### 3 4148-7, 75776-8, BMP, CBC #### [facility] ([id number]) [address] [address] Potassium [Moles/Vol] 4.3 mmol/L Normal 3.5-5.0 [facility] Comment on above: Performed By: #### 3 4148-7, 81563-3, BMP, CBC #### [facility] ([id number]) [address], [facility] [address] [place] [address] Sodium [Moles/Vol] 139 mmol/L Normal 134-146 [facility] Comment on above: Performed By: #### 3 4148-7, 72134-0, BMP, CBC #### [facility] ([id number]) [address], [facility] [address] [place] [address] Urea nitrogen [Mass/Vol] 15 mg/dL Normal 5-23 [facility] Comment on above: Performed By: #### 3 4148-7, 40045-4, BMP, CBC #### [facility] ([id number]) [address] [address] CBC (NO DIFF)on 10-21-2024 Erythrocyte distribution width (RBC) [Ratio] 16.8 % High 11.5-15 [facility] Comment on above: Performed By: #### 3 4148-7, 12577-6, BMP, CBC #### [facility] ([id number]) [address] [address] Hematocrit (Bld) [Volume fraction] 44.6 % Normal 39-50 [facility] Comment on above: Performed By: #### 3 4148-7, 97325-6, BMP, CBC #### [facility] ([id number]) [address] [address] Hemoglobin (Bld) [Mass/Vol] 14.5 g/dL Normal 13-17 [facility] Comment on above: Performed By: #### 3 4148-7, 19600-4, BMP, CBC #### [facility] ([id number]) [address] [address] MCH (RBC) [Entitic mass] 24.9 pg Low 27-34 [facility] Comment on above: Performed By: #### 3 4148-7, 37893-7, BMP, CBC #### [facility] ([id number]) [address], [address] [place] [address] MCHC (RBC) [Mass/Vol] 32.6 g/dL Normal 32-36 [facility] Comment on above: Performed By: #### 3 4148-7, 81261-5, BMP, CBC #### [facility] ([id number]) [address], [address] [place] [address] MCV (RBC) [Entitic vol] 76 fL Low 80-100 [facility] Comment on above: Performed By: #### 3 4148-7, 43726-5, BMP, CBC #### [facility] ([id number]) [address], [address] [place] [address] Platelet mean volume (Bld) [Entitic vol] 7.1 fL Normal 7-12 [facility] Comment on above: Performed By: #### 3 4148-7, 68445-0, BMP, CBC #### [facility] ([id number]) [address], [address] [place] [address] Platelets (Bld) [#/Vol] 57 10*3/uL Low 150-450 [facility] Comment on above: Performed By: #### 3 4148-7, 27659-2, BMP, CBC #### [facility] ([id number]) [address], [address] [place] [address] RBC COUNT 5.83 X10E12/L High 4.1-5.7 [facility] Comment on above: Performed By: #### 3 4148-7, 26557-1, BMP, CBC #### [facility] ([id number]) [address], [address] [place] [address] WBC (Bld) [#/Vol] 3.1 10*3/uL Low 4-11 [facility] Comment on above: Performed By: #### 3 4148-7, 94167-5, BMP, CBC #### [facility] ([id number]) [address], [address] [place] [address] MAGNESIUMon 10-21-2024 Magnesium [Mass/Vol] 2.1 mg/dL Normal 1.8-2.6 [facility] Comment on above: Performed By: #### 3 4148-7, 04648-5, BMP, CBC #### [facility] ([id number]) [address] [place] [address] US ABDOMEN LMTDon 10-21-2024 US ABDOMEN LMTD US ABDOMEN LMTD US ABDOMEN LMTD, 10/21/2024 6:32 AM. Indication: thrombocytopenia. rule out organomegaly. Comparison: CT abdomen pelvis from 05/06/2020 Technique: Multiple longitudinal and transverse images of the abdomen were obtained utilizing grayscale ultrasound. Findings: The spleen measures up to 10.2 cm. Splenic vein appears patent. Approximately splenic volume of 194 mL. The liver measures up to 12.4 cm. There is appropriate directional flow in the main portal vein measuring 19 cm/s. The common bile duct measures up to 3 mm. The gallbladder is not definitively seen. IMPRESSION: No overt splenomegaly. Additional measurements as above. Finalized by Elinor Juarez MD on 10/21/2024 2:02 PM Normal [facility] VALPROIC ACID DEPAKANEon VALPROIC ACID 91 ug/mL Normal 50-100 [facility] Comment on above: Performed By: #### 3 4148-7, 55821-8, BMP, CBC #### [facility] ([id number]) [address], [address] [place] [address] BASIC METABOLIC PANELon 05-0 Anion gap [Moles/Vol] 6 mmol/L Normal 5-15 [facility] Comment on above: Performed By: #### 3 4148-7, 18983-9, BMP, CBC #### [facility] ([id number]) [address], [address] [place] [address] Calcium [Mass/Vol] 8.2 mg/dL Low 8.5-10.5 [facility] Comment on above: Performed By: #### 3 4148-7, 81923-8, BMP, CBC #### [facility] ([id number]) [address], [address] [place] [address] Chloride [Moles/Vol] 102 mmol/L Normal 98-109 [facility] Comment on above: Performed By: #### 3 4148-7, 34620-6, BMP, CBC #### [facility] ([id number]) [address], [address] [place] [address] CO2 [Moles/Vol] 31 mmol/L Normal 22-32 [facility] Comment on above: Performed By: #### 3 4148-7, 01220-9, BMP, CBC #### [facility] ([id number]) [address], [address] [place] [address] Creatinine [Mass/Vol] 1.12 mg/dL Normal 0.60-1.30 [facility] Comment on above: Result Comment: METH OD TRACEABLE TO IDMS STANDARD Performed By: #### 3 4148-7, 12028-2, BMP, CBC #### [facility] ([id number]) [address], [address] [place] [address] GFR/1.73 sq M.predicted among non-blacks MDRD (S/P/Bld) [Vol rate/Area] 76 mL/min/{1.73_m2} Normal >=60 [facility] Comment on above: Result Comment: Repo rted eGFR is based on the CKD-EPI 2020 equation that does not use a race coefficient. Performed By: #### 3 4148-7, 80930-0, BMP, CBC #### [facility] ([id number]) [address], [address] [place] [address] Glucose [Mass/Vol] 92 mg/dL Normal 65-99 [facility] Comment on above: Performed By: #### 3 4148-7, 29652-6, BMP, CBC #### [facility] ([id number]) [address], [address] [place] [address] Potassium [Moles/Vol] 3.7 mmol/L Normal 3.5-5.0 [facility] Comment on above: Performed By: #### 3 4148-7, 72088-0, BMP, CBC #### [facility] ([id number]) [address], [address] [place] [address] Sodium [Moles/Vol] 139 mmol/L Normal 134-146 [facility] Comment on above: Performed By: #### 3 4148-7, 63472-3, BMP, CBC #### [facility] ([id number]) [address], [address] [place] [address] Urea nitrogen [Mass/Vol] 15 mg/dL Normal 5-23 [facility] Comment on above: Performed By: #### 3 4148-7, 91259-9, BMP, CBC #### [facility] ([id number]) [address], [facility] [address] [place] [address] CBC (NO DIFF)on 10-20-2024 Erythrocyte distribution width (RBC) [Ratio] 16.9 % High 11.5-15 [facility] Comment on above: Performed By: #### 3 4148-7, 92678-1, BMP, CBC #### [facility] ([id number]) [address], [address] [place] [address] Hematocrit (Bld) [Volume fraction] 39.2 % Normal 39-50 [facility] Comment on above: Performed By: #### 3 4148-7, 02344-3, BMP, CBC #### [facility] ([id number]) [address], [address] [place] [address] Hemoglobin (Bld) [Mass/Vol] 12.9 g/dL Low 13-17 [facility] Comment on above: Performed By: #### 3 4148-7, 20518-6, BMP, CBC #### [facility] ([id number]) [address], [facility] [address] [place] [address] MCH (RBC) [Entitic mass] 25.2 pg Low 27-34 [facility] Comment on above: Performed By: #### 3 4148-7, 78936-1, BMP, CBC #### [facility] ([id number]) [address], [facility] [address] [place] [address] MCHC (RBC) [Mass/Vol] 33.0 g/dL Normal 32-36 [facility] Comment on above: Performed By: #### 3 4148-7, 23675-3, BMP, CBC #### [facility] ([id number]) [address], [facility] [address] [place] [address] MCV (RBC) [Entitic vol] 77 fL Low 80-100 [facility] Comment on above: Performed By: #### 3 4148-7, 07955-1, BMP, CBC #### [facility] ([id number]) [address], [facility] [address] [place] [address] Platelet mean volume (Bld) [Entitic vol] 7.1 fL Normal 7-12 [facility] Comment on above: Performed By: #### 3 4148-7, 90766-2, BMP, CBC #### [facility] ([id number]) [address], [facility] [address] [place] [address] Platelets (Bld) [#/Vol] 57 10*3/uL Low 150-450 [facility] Comment on above: Performed By: #### 3 4148-7, 43356-2, BMP, CBC #### [facility] ([id number]) [address], [address] [place] [address] RBC COUNT 5.13 X10E12/L Normal 4.1-5.7 [facility] Comment on above: Performed By: #### 3 4148-7, 68985-0, BMP, CBC #### [facility] ([id number]) [address], [address] [place] [address] WBC (Bld) [#/Vol] 2.6 10*3/uL Low 4-11 [facility] Comment on above: Performed By: #### 3 4148-7, 01616-4, BMP, CBC #### [facility] ([id number]) [address], [address] [place] [address] FIBRIN SPLIT PRODUCTSon 05-0 FIBRIN SPLIT PRODUCT <5 Normal <5 [facility] Comment on above: Performed By: #### 3 4148-7, 61137-6, BMP, CBC #### [facility] ([id number]) [address], [address] [place] [id number] HEPATITIS PANEL, ACUTEon ANTI HCV W/PCR REFLX Non-Reactive Normal Non-[place] ctiv e [facility] Comment on above: Result Comment: If r ecent infection suspected, recommend repeat testing (>2 months). Zgckox-xe-veszbk ratio is <1.0. Performed By: #### 3 4148-7, 78935-4, BMP, CBC #### [facility] ([id number]) [address], [address] [place] [address] HEPATITIS A IGM Non-Reactive Normal Non-Reactiv e [facility] Comment on above: Performed By: #### 3 4148-7, 72611-1, BMP, CBC #### [facility] ([id number]) [address], [address] [place] [address] HEPATITIS B CORE IGM Non-Reactive Normal Non-[place] ctiv e [facility] Comment on above: Performed By: #### 3 4148-7, 37952-1, BMP, CBC #### [facility] ([id number]) [address], [address] [place] [address] HEPATITIS B SURF AG Non-Reactive Normal Non-Reac tiv e [facility] Comment on above: Performed By: #### 3 4148-7, 69338-2, BMP, CBC #### [facility] ([id number]) [address], [address] [place] [address] IMMATURE PLATELET FRACTIONon 10-20-2024 IMMATURE PLATELET FRACTION 1.2 % Normal 1.0-11.4 [facility] Comment on above: Result Comment: Perf ormed At: HOSPITAL LAB ([facility]) [facility] [place] [address] Production Potter: ANDREAS CARDOSO DO CLIA Number: [id number] Performed By: #### 3 4148-7, 88478-3, BMP, CBC #### [facility] ([id number]) [address], [address] [place] [address] MAGNESIUMon 10-20-2024 Magnesium [Mass/Vol] 2.1 mg/dL Normal 1.8-2.6 [facility] Comment on above: Performed By: #### 3 4148-7, 93444-5, BMP, CBC #### [facility] ([id number]) [address], [address] [place] [address] ALBRECHT GENERIC ORDERon 025 TEST RESULT SEE COMMENTS Normal [facility] Comment on above: Result Comment: Test Result Flag Unit RefValue ------ Prostate Health Index (phi) Reflex Free PSA, S 0.4 ng/mL [-2]ProPSA, S 7.3 pg/mL % Free PSA 7 % % Free PSA Probability of Cancer < or =10% 56% 11 - 15% 28% 16 - 20% 20% 21 - 25% 16% >25% 8% Prostate Health Index 43.6 phi range Probability 95% Confidence of Cancer Interval 0 - 26.9 9.8% 5.2 - 15.4% 27.0 - 35.9 16.8% 11.3 - 22.2% 36.0 - 54.9 33.3% 26.8 - 39.9% > or = 55.0 50.1% 39.8 - 61.0% ADDITIONAL INFORMATION The testing method is an immunoenzymatic assay manufactured by [employer] and performed on the [employer] DxI 800. Values obtained with different assay methods or kits may be different and cannot be used interchangeably. Test results cannot be interpreted as absolute evidence for the presence or absence of malignant disease. Test Performed by: [address] [place] [address] Digital Community Manager: Eduardo Clark Ph.D.; CLIA# [id number] Performed By: #### 3 4148-7, 64838-4, BMP, CBC #### [facility] ([id number]) [address] [place] [address], [address] [place] [address] POTASSIUMon 10-20-2024 Potassium [Moles/Vol] 4.6 mmol/L Normal 3.5-5.0 [facility] Comment on above: Performed By: #### 3 4148-7, 09597-7, BMP, CBC #### [facility] ([id number]) [address] [facility] [facility], [address] [place] [address] PROSTATE HEALTH INDEX REFLEX (PHI13)on 10-20-2024 PROSTATE HEALTH INDX SEE COMMENTS Normal [facility] Comment on above: Result Comment: Test Result Flag Unit RefValue ------ Prostate Health Index (phi) Reflex Free PSA, S 0.4 ng/mL [-2]ProPSA, S 7.3 pg/mL % Free PSA 7 % % Free PSA Probability of Cancer < or =10% 56% 11 - 15% 28% 16 - 20% 20% 21 - 25% 16% >25% 8% Prostate Health Index 43.6 phi range Probability 95% Confidence of Cancer Interval 0 - 26.9 9.8% 5.2 - 15.4% 27.0 - 35.9 16.8% 11.3 - 22.2% 36.0 - 54.9 33.3% 26.8 - 39.9% > or = 55.0 50.1% 39.8 - 61.0% ADDITIONAL INFORMATION The testing method is an immunoenzymatic assay manufactured by [employer] and performed on the [employer] DxI 800. Values obtained with different assay methods or kits may be different and cannot be used interchangeably. Test results cannot be interpreted as absolute evidence for the presence or absence of malignant disease. Test Performed by: [place] [address] Digital Community Manager: Eduardo Clark Ph.D.; CLIA# [id number] Performed By: #### 3 4148-7, 65756-5, BMP, CBC #### [facility] ([id number]) [address], [address] [place] [address] PSA W/ REFLEX TO PROSTATE HE ALTH INDEXon 10-20-2024 PSA W/ REFLEX TO PHI SEE COMMENTS Abnormal [facility] Comment on above: Result Comment: Test Result Flag Unit RefValue ------ Prostate Health Index Reflex, S Prostate Specific Antigen, S 5.7 H ng/mL <=3.5 Test Performed by: [place] [address] Digital Community Manager: Eduardo Clark Ph.D.; CLIA# [id number] Performed By: #### 3 4148-7, 38778-3, BMP, CBC #### [facility] ([id number]) [address], [address] [place] [address] URINALYSISon 10-20-2024 Bilirubin Ql (U) Negative Normal Negative [facility] Comment on above: Performed By: #### 3 4148-7, 27583-4, BMP, CBC #### [facility] ([id number]) [address], [address] [place] [address] BLOOD/HGB Negative Normal Negative [facility] Comment on above: Performed By: #### 3 4148-7, 37691-5, BMP, CBC #### [facility] ([id number]) [address], [address] [place] [address] Color (U) Yellow Normal Yellow, Colorless [facility] Comment on above: Performed By: #### 3 4148-7, 94725-5, BMP, CBC #### [facility] ([id number]) [address], [address] [place] [address] Glucose Ql (U) Negative Normal Negative [facility] Comment on above: Performed By: #### 3 4148-7, 57136-8, BMP, CBC #### [facility] ([id number]) [address], [address] [place] [address] Ketones Ql (U) Negative Normal Negative [facility] Comment on above: Performed By: #### 3 4148-7, 68665-2, BMP, CBC #### [facility] ([id number]) [address], [address] [place] [address] Leukocyte esterase Test strip Ql (U) Negative Normal Negative [facility] Comment on above: Performed By: #### 3 4148-7, 37959-0, BMP, CBC #### [facility] ([id number]) [address], [address] [place] [address] Nitrite Ql (U) Negative Normal Negative [facility] Comment on above: Performed By: #### 3 4148-7, 48287-4, BMP, CBC #### [facility] ([id number]) [address], [address] [place] [address] PH,URINE 7.0 Normal 5.0-8.5 [facility] Comment on above: Performed By: #### 3 4148-7, 02960-1, BMP, CBC #### [facility] ([id number]) [address], [address] [place] [address] Protein Ql (U) Negative Normal Negative [facility] Comment on above: Performed By: #### 3 4148-7, 36796-8, BMP, CBC #### [facility] ([id number]) [address], [facility] [address] [place] [address] Specific gravity (U) [Rel density] 1.013 Normal 1.003-1.035 [facility] Comment on above: Performed By: #### 3 4148-7, 39756-9, BMP, CBC #### [facility] ([id number]) [address] [address] TURBIDITY Clear Normal Clear [facility] Comment on above: Performed By: #### 3 4148-7, 33138-6, BMP, CBC #### [facility] ([id number]) [address], [address] [address] UROBILINOGEN <1.1 eu/dL Normal <1.1 eu/dL [facility] Comment on above: Performed By: #### 3 4148-7, 89029-2, BMP, CBC #### [facility] ([id number]) [address], [address] [address] APTTon 10-19-2024 aPTT Coag (Bld) [Time] 29 s Normal 26-37 [facility] Comment on above: Performed By: #### 1 9123-9, 2777-1, BMP, CBC, THYR #### [facility] ([id number]) [address] [address] CBC WITH AUTO DIFFERENTIALon 10-19-2024 BASOPHILS ABSOLUTE COUNT (10*3/UL) BY AUTOMATED COUNT 0.0 10*3/uL Normal [facility] Comment on above: Performed By: #### 1 9123-9, 2777-1, BMP, CBC, THYR #### [facility] ([id number]) [address] [address] BASOPHILS RELATIVE PERCENT BY AUTOMATED COUNT 0.4 % Normal [facility] Comment on above: Performed By: #### 1 9123-9, 2777-1, BMP, CBC, THYR #### [facility] ([id number]) [address] [address] [place] [address] CELLAVISION DIFFERENTIAL TYPE AUTOMATED DIFFERENTIAL Normal [facility] Comment on above: Performed By: #### 1 9122-9, 277-, BMP, CBC, THYR #### [facility] ([id number]) [address], [address] [address] Eosinophils (Bld) [#/Vol] 0.1 10*3/uL Normal [facility] Comment on above: Performed By: #### 1 9122-, 2776-06, BMP, CBC, THYR #### [facility] ([id number]) [address] [address] EOSINOPHILS RELATIVE PERCENT BY AUTOMATED COUNT 2.1 % Normal [facility] Comment on above: Performed By: #### 1 9123-02, 2776-06, BMP, CBC, THYR #### [facility] ([id number]) [address] [address] Erythrocyte distribution width (RBC) [Ratio] 16.6 % High 11.5-15 [facility] Comment on above: Performed By: #### 1 9122-, 2776-06, BMP, CBC, THYR #### [facility] ([id number]) [address] [address] Hematocrit (Bld) [Volume fraction] 36.9 % Low 39-50 [facility] Comment on above: Performed By: #### 1 9122-, 2776-06, BMP, CBC, THYR #### [facility] ([id number]) [address] [address] Hemoglobin (Bld) [Mass/Vol] 12.2 g/dL Low 13-17 [facility] Comment on above: Performed By: #### 1 9122, 2776-06, BMP, CBC, THYR #### [facility] ([id number]) [address], [facility] [address] [place] [address] LYMPHOCYTES ABSOLUTE COUNT (10*3/UL) BY AUTOMATED COUNT 1.1 10*3/uL Normal [facility] Comment on above: Performed By: #### 1 9123-02, 2776-06, BMP, CBC, THYR #### [facility] ([id number]) [address], [address] [address] LYMPHOCYTES RELATIVE PERCENT BY AUTOMATED COUNT 39.1 % Normal [facility] Comment on above: Performed By: #### 1 9123-02, 2776-06, BMP, CBC, THYR #### [facility] ([id number]) [address], [address] [address] MCH (RBC) [Entitic mass] 24.9 pg Low 27-34 [facility] Comment on above: Performed By: #### 1 9123-02, 2776-06, BMP, CBC, THYR #### [facility] ([id number]) [address] [address] MCHC (RBC) [Mass/Vol] 32.9 g/dL Normal 32-36 [facility] Comment on above: Performed By: #### 1 9123-02, 2776-06, BMP, CBC, THYR #### [facility] ([id number]) [address], [address] [address] MCV (RBC) [Entitic vol] 76 fL Low 80-100 [facility] Comment on above: Performed By: #### 1 9123-02, 2776-06, BMP, CBC, THYR #### [facility] ([id number]) [address], [facility] [address] [place] [address] MONOCYTES ABSOLUTE COUNT (10*3/UL) BY AUTOMATED COUNT 0.3 10*3/uL Normal [facility] Comment on above: Performed By: #### 1 9123-9, 2777-, BMP, CBC, THYR #### [facility] ([id number]) [address], [address] [place] [address] MONOCYTES RELATIVE PERCENT BY AUTOMATED COUNT 10.7 % Normal [facility] Comment on above: Performed By: #### 1 91-9, 277-, BMP, CBC, THYR #### [facility] ([id number]) [address], [address] [place] [address] NEUTROPHILS ABSOLUTE COUNT BY AUTOMATED COUNT 1.3 10*3/uL Normal [facility] Comment on above: Performed By: #### 1 91-, 277-, BMP, CBC, THYR #### [facility] ([id number]) [address], [address] [place] [address] NEUTROPHILS RELATIVE PERCENT BY AUTOMATED COUNT 47.7 % Normal [facility] Comment on above: Performed By: #### 1 9123-9, 277-, BMP, CBC, THYR #### [facility] ([id number]) [address], [address] [place] [address] Platelet mean volume (Bld) [Entitic vol] 6.9 fL Low 7-12 [facility] Comment on above: Performed By: #### 1 9123-9, 277-, BMP, CBC, THYR #### [facility] ([id number]) [address], [address] [place] [address] Platelets (Bld) [#/Vol] 56 10*3/uL Low 150-450 [facility] Comment on above: Performed By: #### 1 9123-9, 277-, BMP, CBC, THYR #### [facility] ([id number]) [address], [address] [place] [address] RBC COUNT 4.89 X10E12/L Normal 4.1-5.7 [facility] Comment on above: Performed By: #### 1 9123-9, 2777-, BMP, CBC, THYR #### [facility] ([id number]) [address], [address] [place] [address] WBC (Bld) [#/Vol] 2.7 10*3/uL Low 4-11 [facility] Comment on above: Performed By: #### 1 9123-9, 277-, BMP, CBC, THYR #### [facility] ([id number]) [address], [address] [place] [address] CK TOTALon 10-19-2024 CPK 38 U/L Normal 24-195 [facility] Comment on above: Performed By: #### 1 9123-9, 2777-, BMP, CBC, THYR #### [facility] ([id number]) [address], [address] [place] [address] COMPREHENSIVE METABOLIC PANE Jatin 10-19-2024 Albumin [Mass/Vol] 3.0 g/dL Low 3.2-5.3 [facility] Comment on above: Performed By: #### 1 9123-9, 2777-, BMP, CBC, THYR #### [facility] ([id number]) [address], [address] [place] [address] ALP [Catalytic activity/Vol] 34 U/L Low 39-130 [facility] Comment on above: Performed By: #### 1 9123-9, 2777-, BMP, CBC, THYR #### [facility] ([id number]) [address], [address] [place] [address] ALT [Catalytic activity/Vol] 12 U/L Normal <=40 [facility] Comment on above: Performed By: #### 1 9123-9, 2777-, BMP, CBC, THYR #### [facility] ([id number]) [address], [address] [place] [address] Anion gap [Moles/Vol] 4 mmol/L Low 5-15 [facility] Comment on above: Performed By: #### 1 91-, 27712-18, BMP, CBC, THYR #### [facility] ([id number]) [address], [address] [place] [address] AST [Catalytic activity/Vol] 16 U/L Normal <=41 [facility] Comment on above: Performed By: #### 1 9123-02, 2776-06, BMP, CBC, THYR #### [facility] ([id number]) [address], [address] [place] [address] Bilirubin [Mass/Vol] 0.8 mg/dL Normal 0.3-1.2 [facility] Comment on above: Performed By: #### 1 9123-02, 2776-06, BMP, CBC, THYR #### [facility] ([id number]) [address], [address] [place] [address] Calcium [Mass/Vol] 7.8 mg/dL Low 8.5-10.5 [facility] Comment on above: Performed By: #### 1 9122-, 27712-18, BMP, CBC, THYR #### [facility] ([id number]) [address], [address] [place] [address] Chloride [Moles/Vol] 103 mmol/L Normal 98-109 [facility] Comment on above: Performed By: #### 1 9123-, 277-, BMP, CBC, THYR #### [facility] ([id number]) [address], [address] [place] [address] CO2 [Moles/Vol] 33 mmol/L High 22-32 [facility] Comment on above: Performed By: #### 1 9122-, 2776-06, BMP, CBC, THYR #### [facility] ([id number]) [address], [address] [place] [address] Creatinine [Mass/Vol] 1.04 mg/dL Normal 0.60-1.30 [facility] Comment on above: Result Comment: METH OD TRACEABLE TO IDMS STANDARD Performed By: #### 1 9123-9, 27712-18, BMP, CBC, THYR #### [facility] ([id number]) [address], [address] [place] [address] GFR/1.73 sq M.predicted among non-blacks MDRD (S/P/Bld) [Vol rate/Area] 83 mL/min/{1.73_m2} Normal >=60 [facility] Comment on above: Result Comment: Repo rt eGFR is based on the CKD-EPI 2020 equation that does not use a race coefficient. Performed By: #### 1 9123-, 2776-06, BMP, CBC, THYR #### [facility] ([id number]) [address] [address] [place] [address] Glucose [Mass/Vol] 108 mg/dL High 65-99 [facility] Comment on above: Performed By: #### 1 9123-, 27712-18, BMP, CBC, THYR #### [facility] ([id number]) [address] [address] [place] [address] Potassium [Moles/Vol] 4.1 mmol/L Normal 3.5-5.0 [facility] Comment on above: Performed By: #### 1 9123-9, 27712-18, BMP, CBC, THYR #### [facility] ([id number]) [address], [address] [place] [address] Protein [Mass/Vol] 5.3 g/dL Low 6.0-8.0 [facility] Comment on above: Performed By: #### 1 9123-, 2777-1, BMP, CBC, THYR #### [facility] ([id number]) [address] [place] [address] Sodium [Moles/Vol] 140 mmol/L Normal 134-146 [facility] Comment on above: Performed By: #### 1 9123-9, 2777-1, BMP, CBC, THYR #### [facility] ([id number]) [address] [place] [address] Urea nitrogen [Mass/Vol] 21 mg/dL Normal 5-23 [facility] Comment on above: Performed By: #### 1 9123-9, 2777-1, BMP, CBC, THYR #### [facility] ([id number]) [address], [address] [place] [address] CT BRAIN WO CONTon CT BRAIN WO CONT CT BRAIN WO CONT CT BRAIN WITHOUT CONTRAST COMPARISON: 07/07/2024, 08/08/2019 HISTORY: fall. Bradycardia. History of traumatic brain injury. TECHNIQUE: Unenhanced axial images of the brain were obtained. Automatic exposure control (AEC) was utilized. FINDINGS: There is no evidence for acute intracranial hemorrhage. Moderate global parenchymal volume loss with ex vacuo dilatation of the lateral ventricles and third ventricle, similar to prior. There are multifocal areas of low-attenuation throughout the periventricular and subcortical white matter of both cerebral hemispheres which are nonspecific, but are most likely sequela of chronic small vessel ischemia. 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 Ramachandran-white differentiation is preserved with no CT evidence for an acute infarct. No acute fracture. IMPRESSION: * No evidence for an acute intracranial process. Chronic changes detailed above. All CT scans at this facility use dose modulation, iterative reconstruction, and/or weight based dosing when appropriate to reduce radiation dose to as low as reasonably achievable. Finalized by John Mujica MD on 10/19/2024 5:00 AM Normal [facility] FERRITINon 10-19-2024 Ferritin [Mass/Vol] 208 ng/mL Normal 24-336 [facility] Comment on above: Performed By: #### 1 9123-9, 2777-, BMP, CBC, THYR #### [facility] ([id number]) [address] [place] [address] FIBRINOGENon 10-19-2024 FIBRINOGEN 179 mg/dL Low 190-480 [facility] Comment on above: Performed By: #### 1 9123-9, 277-, BMP, CBC, THYR #### [facility] ([id number]) [address], [address] [place] [address] FOLATEon 10-19-2024 FOLIC ACID 9.7 ng/mL Normal >5.8 [facility] Comment on above: Performed By: #### 1 9123-9, 277-, BMP, CBC, THYR #### [facility] ([id number]) [address], [address] [place] [address] IRON AND TIBCon 10-19-2024 Iron [Mass/Vol] 96 ug/dL Normal 50-212 [facility] Comment on above: Performed By: #### 1 9123-9, 2777-, BMP, CBC, THYR #### [facility] ([id number]) [address], [address] [place] [address] IRON BINDING 245 ug/dL Low 250-425 [facility] Comment on above: Performed By: #### 1 9123-9, 2777-, BMP, CBC, THYR #### [facility] ([id number]) [address], [address] [place] [address] IRON SATURATION 39 % SATURATION Normal 20-50 [facility] Comment on above: Performed By: #### 1 9123-9, 2777-, BMP, CBC, THYR #### [facility] ([id number]) [address], [address] [place] [address] Transferrin [Mass/Vol] 175 mg/dL Normal 168-336 [facility] Comment on above: Performed By: #### 1 9123-9, 2777-1, BMP, CBC, THYR #### [facility] ([id number]) [address], [address] [place] [address] MAGNESIUMon 10-19-2024 Magnesium [Mass/Vol] 2.0 mg/dL Normal 1.8-2.6 [facility] Comment on above: Performed By: #### 1 9123-9, 2777-, BMP, CBC, THYR #### [facility] ([id number]) [address], [address] [place] [address] MYOGLOBIN, SERUMon SERUM MYOGLOBIN 15.9 ng/mL Low 17.4-105.7 [facility] Comment on above: Performed By: #### 3 4148-7, 57163-9, BMP, CBC #### [facility] ([id number]) [address], [address] [place] [address] PROTIME AND INRon 10-19-2024 INR 1.1 Normal 0.9-1.2 [facility] Comment on above: Performed By: #### 1 9123-9, 2777-1, BMP, CBC, THYR #### [facility] ([id number]) [address], [address] [place] [address] PT Coag (PPP) [Time] 12.3 s Normal 9.8-13.2 [facility] Comment on above: Performed By: #### 1 9123-9, 2777-1, BMP, CBC, THYR #### [facility] ([id number]) [address], [address] [place] [address] RETICULOCYTESon 10-19-2024 RETICULOCYTE COUNT 1.2 % Normal 0.4-2.2 [facility] Comment on above: Performed By: #### 1 9123-9, 2777-1, BMP, CBC, THYR #### [facility] ([id number]) [address] [place] [address] TROP I, HIGH SENSITIVITY 1 H OURon 10-19-2024 TROPONIN I, HIGH SENSITIVITY 5 ng/L Normal <21 [facility] Comment on above: Performed By: #### 1 9123-9, 2777-1, BMP, CBC, THYR #### [facility] ([id number]) [address], [address] [place] [address] TROPONIN I, HIGH SENSITIVITY 0 HOURon 10-19-2024 TROPONIN I, HIGH SENSITIVITY 4 ng/L Normal <21 [facility] Comment on above: Performed By: #### 3 4148-7, 50691-2, BMP, CBC #### [facility] ([id number]) [address], [address] [place] [address] VITAMIN B12on 10-19-2024 Cobalamin (Vitamin B12) [Mass/Vol] 943 pg/mL High 180-914 [facility] Comment on above: Performed By: #### 1 9123-9, 2777-1, BMP, CBC, THYR #### [facility] ([id number]) [address], [address] [place] [address] XR CHEST 1 VWon 10-19-2024 XR CHEST 1 VW XR CHEST 1 VW XR CHEST 1 VW HISTORY: Chest pain COMPARISON: Chest radiograph 07/02/2024, 05/06/2020, 11/24/2019. FINDINGS: The trachea is midline. The cardiomediastinal silhouette is not enlarged. Hypoventilatory changes. No pneumothorax or pleural effusion. Hazy left basilar airspace opacities. IMPRESSION: * Hazy left basilar airspace opacities may represent atelectasis versus pneumonia in the appropriate clinical context. Superimposed hypoventilatory changes. Approved by Resident Taran Carcamo MD on 10/19/2024 4:29 AM I, Caesar Sesay MD have personally reviewed the image(s) and agree with and/or edited the report Finalized by Caesar Sesay MD on 10/19/2024 4:33 AM [facility]) ESTELLA JEFFERY ([id number]) 1965 M Date Time Provider Department 07/30/24 12:[address] [facility] During your visit today, we recorded the following information about you: Temperature Pulse Blood pressure Weight 97.6 degrees 84/minute 99/63 76.2 kg Fidelina Fisher APRN.WAITER/WAITRESS TAVERN 08/12/2024 10:55 PM Signed July 30, 2024 Reason for visit: Patient presents with: Consult Previous Visit: No previous PMANDR. HPI (brief) Estella Jeffery is a 59 year old male. PMHx of TBI and HDL. He had an unwitnessed fall down the stairs. Per family he had a fall in May 2024. He was evaluated at [place] following the fall. 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 Per family he had a rough admission with jalen at [facility] in [place]. He was started on Seroquel at bedtime. [...] Cognition: - has underline dementia. Following with [facility]. Sleep: - He has been having issues [...] and cranio-cervical junction. Flow voids documented in [place] of Mcdermott and dural venous sinuses. 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 PMHx of TBI and HDL. He had an unwitnessed fall (more content not included)... Normal [facility] 07[facility]20[facility]2024 [facility] (NEADMN) ESTELLA JEFFERY ([id number]) 1965 M Date Time Provider Department 07/20/24 JANICE MCDERMOTT During your visit today, we recorded the following information about you: Janice Mcdermott MD 07/20/2024 8:56 AM Signed Received [...] our network. Referring MD will confirm with lead case manager that referrals were sent to all 3. If the patient is discharged home or to SNF, we can potentially expedite an appointment with our PMR colleagues/TBI multidisciplinary clinic. I will alert Drs. Aguilar and Earl to the referral. Janice Mcdermott MD Allergies As of Date: 07/20/2024 (No Known Allergies) Date Reviewed: 10/12/2022 Reviewed by: Miguelito Chicas APRN.WAITER/WAITRESS TAVERN - Fully Assessed Prescriptions as of 07/20/2024 [...] 04/27/2022 HLD (hyperlipidemia) [E78.5] Encounter Status:Closed by JANICE MCDERMOTT on 07/20/24 Normal [facility] Patient Letter FT[place] 2024 [place] [facility] [place] [facility] [place] July 20, 2024 ESTELLA JEFFERY [address] [place] [id number] : 1965 Dear Mr. Jeffery, I am [...] Office Sincerely, Dr. Danni Graham [facility] [address] [place] [address] [facility] TANNER Virus Antibody Reflex to Inhibition Assayon 07-19-2024 Interpretation and review of laboratory results Abnormal [facility] TANNER virus Ab [place] Ql Positive [facility]normal [facility] Comment on above: NOTE Index interpretive criteria: [...] index.(1) (1) TYSABRI(natalizumab)US Prescribing Information Performed by: [facility] [address] [place] [address] Jessenia Bagley MD, PhD, TANNER Virus Index 2.94 High [facility] Comment on above: NOTE Performed by: [facility] [address] [place] [address] Jessenia Bagley MD, PhD, [facility] Telephone (NEIND4) JEFFERYESTELLA WOO ([id number]) 1965 M Date Time Provider Department 07/18/24 NARCISO GUERRA During your visit today, we recorded the following information about you: Gaby Laboy 07/18/2024 9:22 AM Signed Patient returned your call and can be reached at: Call patient at: on cell [phone] (home) [phone] (cell) Abbey Amato MA 07/18/2024 11:23 AM Signed Patient mailbox is full unable to leave message Roger Holland, MARCI 07/19/2024 12:42 PM Signed Spoke with Dr Harmon (sp?) from [facility] regarding patient. Family is requesting transfer to a [facility] TBI center, inpatient. I advised that Dr Guerra cannot assist in this matter. Leana Roca, RN 07/20/2024 3:19 PM Addendum Spoke to , Kari. Pt is currently at [facility]. Pt is being denied an admit to rehab facility. I am unable to view notes from that hospital. Suggestion given to try [facility] as [facility] have a TBI clinic. Family will have to work with staff at [facility]. Verbalized understanding. Allergies As of Date: 07/18/2024 (No Known Allergies) Date Reviewed: 10/12/2022 Reviewed by: Miguelito Chicas APRN.WAITER/WAITRESS TAVERN - Fully Assessed Reason for Visit: Patient Question [2387] Prescriptions as of 07/20/2024 - donepezil (ARICEPT) [...] 04/27/2022 HLD (hyperlipidemia) [E78.5] Encounter Status:Closed by LEANA ROCA on 07/20/24 Normal [facility] BASIC METABOLIC PANLon 07-17 Anion gap [Moles/Vol] 4 mmol/L Low 5-15 [facility] Comment on above: Performed By: #### 1 9123-9, 2777-1, BMP, CBC, THYR #### [facility] ([id number]) [address], [address] [place] [address] Calcium [Mass/Vol] 8.8 mg/dL Normal 8.5-10.5 [facility] Comment on above: Performed By: #### 1 9123-9, 2777-, BMP, CBC, THYR #### [facility] ([id number]) [address], [address] [place] [address] Chloride [Moles/Vol] 104 mmol/L Normal 98-109 [facility] Comment on above: Performed By: #### 1 9123-9, 2777-, BMP, CBC, THYR #### [facility] ([id number]) [address], [address] [place] [address] CO2 [Moles/Vol] 33 mmol/L High 22-32 [facility] Comment on above: Performed By: #### 1 9123-9, 2777-, BMP, CBC, THYR #### [facility] ([id number]) [address] [address] [place] [address] Creatinine [Mass/Vol] 0.95 mg/dL Normal 0.60-1.30 [facility] Comment on above: Result Comment: METH OD TRACEABLE TO IDMS STANDARD Performed By: #### 1 9123-9, 2777-, BMP, CBC, THYR #### [facility] ([id number]) [address] [address] eGFR (CKD-EPI) NON-RACE DEPENDENT >90 Normal >59 [facility] Comment on above: Result Comment: Reported eGFR is based on the CKD-EPI 2020 equation that does not use a race coefficient. Performed By: #### 1 9123-9, 2777-, BMP, CBC, THYR #### [facility] ([id number]) [address] [address] Glucose [Mass/Vol] 97 mg/dL Normal 65-99 [facility] Comment on above: Performed By: #### 1 9123-9, 2777-, BMP, CBC, THYR #### [facility] ([id number]) [address] [address] Potassium [Moles/Vol] 4.3 mmol/L Normal 3.5-5.0 [facility] Comment on above: Performed By: #### 1 9123-9, 2777-, BMP, CBC, THYR #### [facility] ([id number]) [address] [address] Sodium [Moles/Vol] 141 mmol/L Normal 134-146 [facility] Comment on above: Performed By: #### 1 9123-9, 2777-, BMP, CBC, THYR #### [facility] ([id number]) [address] [address] [place] [address] Urea nitrogen [Mass/Vol] 20 mg/dL Normal 5-23 [facility] Comment on above: Performed By: #### 1 9123-9, 2777-1, BMP, CBC, THYR #### [facility] ([id number]) [address] [facility] [place] [address] Basic Metabolic Panelon 06-21 Anion gap [Moles/Vol] 4 mmol/L Low 5 - 15 mmol/L [facility] Calcium [Mass/Vol] 8.8 mg/dL 8.5 - 10. 5 mg/dL [facility] Chloride [Moles/Vol] 104 mmol/L 98 - 10 9 mmol/L [facility] CO2 [Moles/Vol] 33 mmol/L High 22 - 32 mmol/L [facility] Creatinine [Mass/Vol] 0.95 mg/dL 0.60 - 1.30 mg/dL [facility] Comment on above: METHOD TRACEABLE TO [facility] STANDARD eGFR (CKD-EPI)non-race dependent - PINF [facility] Comment on above: Reported eGFR is based on the CKD-EPI 2020 equation that does not use a race coefficient. Glucose [Mass/Vol] 97 mg/dL 65 - 99 mg/dL [facility] Interpretation and review of laboratory results Abnormal [facility] Potassium [Moles/Vol] 4.3 mmol/L 3.5 - 5.0 mmol/L [facility] Sodium [Moles/Vol] 141 mmol/L 134 - 146 mmol/L [facility] Urea nitrogen [Mass/Vol] 20 mg/dL 5 - 23 mg/dL [facility] CBC AND AUTO DIFFon 07-17-19 25 ABSOLUTE BASOPHIL 0.0 X10E9/L Normal 0.0-0.2 [facility] Comment on above: Performed By: #### 1 9123-9, 2777-1, BMP, CBC, THYR #### [facility] ([id number]) [address], [address] [place] [address] ABSOLUTE NEUTROPHIL 2.5 X10E9/L Normal 1.5-6.6 [facility] Comment on above: Performed By: #### 1 9123-9, 27712-18, BMP, CBC, THYR #### [facility] ([id number]) [address] [address] Basophils/100 WBC (Bld) 0.6 % Normal [facility] Comment on above: Performed By: #### 1 9123-02, 2776-06, BMP, CBC, THYR #### [facility] ([id number]) [address] [address] Eosinophils (Bld) [#/Vol] 0.1 10*3/uL Normal 0.0-0.4 [facility] Comment on above: Performed By: #### 1 9123-02, 2776-06, BMP, CBC, THYR #### [facility] ([id number]) [address] [address] Eosinophils/100 WBC (Bld) 1.9 % Normal [facility] Comment on above: Performed By: #### 1 9123-02, 2776-06, BMP, CBC, THYR #### [facility] ([id number]) [address] [address] Erythrocyte distribution width (RBC) [Ratio] 15.8 % High 11.5-15.0 [facility] Comment on above: Performed By: #### 1 91-, 2776-06, BMP, CBC, THYR #### [facility] ([id number]) [address] [address] Hematocrit (Bld) [Volume fraction] 41.8 % Normal 39-49 [facility] Comment on above: Performed By: #### 1 91-, 27712-18, BMP, CBC, THYR #### [facility] ([id number]) [address] [address] [place] [address] Hemoglobin (Bld) [Mass/Vol] 13.9 g/dL Normal 13.0-17.0 [facility] Comment on above: Performed By: #### 1 9123-9, 27712-18, BMP, CBC, THYR #### [facility] ([id number]) [address], [facility] [address] [place] [address] Lymphocytes (Bld) [#/Vol] 1.2 10*3/uL Normal 1.0-3.5 [facility] Comment on above: Performed By: #### 1 9122-, 2776-06, BMP, CBC, THYR #### [facility] ([id number]) [address], [facility] [address] [place] [address] Lymphocytes/100 WBC (Bld) 29.7 % Normal [facility] Comment on above: Performed By: #### 1 9123-02, 27712-18, BMP, CBC, THYR #### [facility] ([id number]) [address], [address] [address] MCH (RBC) [Entitic mass] 25.1 pg Low 27-34 [facility] Comment on above: Performed By: #### 1 9123-, 27712-18, BMP, CBC, THYR #### [facility] ([id number]) [address] [address] MCHC (RBC) [Mass/Vol] 33.2 g/dL Normal 32-36 [facility] Comment on above: Performed By: #### 1 9123-9, 27712-18, BMP, CBC, THYR #### [facility] ([id number]) [address] [address] MCV (RBC) [Entitic vol] 76 fL Low 80-100 [facility] Comment on above: Performed By: #### 1 9123-9, 27712-18, BMP, CBC, THYR #### [facility] ([id number]) [address], [address] [place] [address] Monocytes (Bld) [#/Vol] 0.3 10*3/uL Normal 0-0.9 [facility] Comment on above: Performed By: #### 1 9123-9, 277-, BMP, CBC, THYR #### [facility] ([id number]) [address], [facility] [address] [place] [address] Monocytes/100 WBC (Bld) 8.2 % Normal [facility] Comment on above: Performed By: #### 1 91-9, 27712-18, BMP, CBC, THYR #### [facility] ([id number]) [address], [facility] [address] [place] [address] Neutrophils/100 WBC (Bld) 59.6 % Normal [facility] Comment on above: Performed By: #### 1 91-, 27712-18, BMP, CBC, THYR #### [facility] ([id number]) [address], [facility] [address] [place] [address] Platelet mean volume (Bld) [Entitic vol] 7.7 fL Normal 7-12 [facility] Comment on above: Performed By: #### 1 9123-9, 277-, BMP, CBC, THYR #### [facility] ([id number]) [address], [facility] [address] [place] [address] Platelets (Bld) [#/Vol] 180 10*3/uL Normal 150-450 [facility] Comment on above: Performed By: #### 1 9123-9, 277-, BMP, CBC, THYR #### [facility] ([id number]) [address], [facility] [address] [place] [address] RBC COUNT 5.54 X10E12/L Normal 4.10-5.70 [facility] Comment on above: Performed By: #### 1 9123-9, 277-, BMP, CBC, THYR #### [facility] ([id number]) [address], [address] [place] [address] WBC (Bld) [#/Vol] 4.1 10*3/uL Normal 4.0-11.0 [facility] Comment on above: Performed By: #### 1 9123-9, 2777-1, BMP, CBC, THYR #### [facility] ([id number]) [address], [address] [place] [address] CBC auto differentialon 06-21 Basophils (Bld) [#/Vol] 0 10*3/uL [facility] Basophils/100 WBC (Bld) 0.6 % [facility] Eosinophils (Bld) [#/Vol] 0.1 10*3/uL [facility] Eosinophils/100 WBC (Bld) 1.9 % [facility] Erythrocyte distribution width (RBC) [Ratio] 15.8 % High 11.5 - 15.0 % [facility] Hematocrit (Bld) [Volume fraction] 41.8 % 39 - 49 % [facility] Hemoglobin (Bld) [Mass/Vol] 13.9 g/dL 13.0 - 17.0 g/dL [facility] Interpretation and review of laboratory results Abnormal [facility] Lymphocytes (Bld) [#/Vol] 1.2 10*3/uL [facility] Lymphocytes/100 WBC (Bld) 29.7 % [facility] MCH (RBC) [Entitic mass] 25.1 pg Low 27 - 34 pg [facility] MCHC (RBC) [Mass/Vol] 33.2 g/dL 32 - 3 6 g/dL [facility] MCV (RBC) [Entitic vol] 76 fL Low 80 - 100 fL [facility] Monocytes (Bld) [#/Vol] 0.3 10*3/uL [facility] Monocytes/100 WBC (Bld) 8.2 % [facility] Neutrophils (Bld) [#/Vol] 2.5 10*3/uL [facility] Neutrophils/100 WBC (Bld) 59.6 % [facility] Platelet mean volume (Bld) [Entitic vol] 7.7 fL 7 - 12 fL [facility] Platelets (Bld) [#/Vol] 180 10*3/uL [facility] RBC (Bld) [#/Vol] 5.54 10*6/uL [facility] WBC corrected for nucl RBC Auto (Bld) [#/Vol] 4.1 [facility] CNPNon 07-17-2024 CNPN Telephone (NEIND4) ESTELLA JEFFERY ([id number]) 1965 M Date Time Provider Department 07/17/24 NARCISO GUERRA NEIND4 During your visit today, we recorded the following information about you: Gaby Laboy 07/17/2024 2:37 PM Signed Pt keila and is in [facility] and is requesting help with getting pt transferred to a [facility] facility Please call pts [phone] Roger Holland, RN 07/18/2024 8:58 AM Signed -LVMTCB We are unable to assist in this matter. Pt last seen 04/2022 Allergies As of Date: 07/17/2024 (No Known Allergies) Date Reviewed: 10/12/2022 Reviewed by: Miguelito Chicas, SDY.WAITER/WAITRESS TAVERN - Fully Assessed Reason for Visit: Patient Question [7647] Prescriptions as of 07/18/2024 - donepezil (ARICEPT) [...] 04/27/2022 HLD (hyperlipidemia) [E78.5] Encounter Status:Closed by ROGER HOLLAND on 07/18/24 Normal [facility] Encephalopathy - Autoimmune Eval, CSFon 07-17-2024 Encephalopathy autoimmune Ab panel (CSF) SEE COMMENTS 07/17/2024 05:00 PM Work[facility] Comment on above: NOTE Test Result Flag [...] developed and its performance characteristics determined by [facility] in a manner consistent with CLIA requirements. This test has not been cleared or approved by the U.S. Food and Drug Administration. Amphiphysin Ab, CSF Negative Negative ADDITIONAL INFORMATION This test was developed and its performance characteristics determined by [facility] in a manner consistent with CLIA requirements. This test has not been cleared or approved by the U.S. Food and Drug Administration. AGNA-1, CSF Negative Negative ADDITIONAL INFORMATION This test was developed and its performance characteristics determined by [facility] in a manner consistent with CLIA requirements. This test has not been cleared or approved by the U.S. Food and Drug Administration. MARKEL-1, CSF Negative Negative ADDITIONAL INFORMATION This test was developed and its performance characteristics determined by [facility] in a manner consistent with CLIA requirements. This test has not been cleared or approved by the U.S. Food and Drug Administration. MARKEL-2, CSF Negative Negative ADDITIONAL INFORMATION This test was developed and its performance characteristics determined by [facility] in a manner consistent with CLIA requirements. This test has not been cleared or approved by the U.S. Food and Drug Administration. MARKEL-3, CSF Negative Negative ADDITIONAL INFORMATION This test was developed and its performance characteristics determined by [facility] in a manner consistent with CLIA requirements. This test has not been cleared or approved by the U.S. Food and Drug Administration. CASPR2-IgG CBA, CSF Negative Negative ADDITIONAL INFORMATION This test was developed and its performance characteristics determined by [facility] in a manner consistent with CLIA requirements. This test has not been cleared or approved by the U.S. Food and Drug Administration. CRMP-5-IgG, CSF Negative Negative ADDITIONAL INFORMATION This test was developed and its performance characteristics determined by [facility] in a manner consistent with CLIA requirements. This test has not been cleared or approved by the U.S. Food and Drug Administration. DPPX Ab CBA, CSF Negative Negative ADDITIONAL INFORMATION This test was developed and its performance characteristics determined by [facility] in a manner consistent with CLIA requirements. This test has not been cleared or approved by the U.S. Food and Drug Administration. NICOLE-B-R Ab CBA, CSF Negative Negative ADDITIONAL INFORMATION This test was developed and its performance characteristics determined by [facility] in a manner consistent with CLIA requirements. This test has not been cleared or approved by the U.S. Food and Drug Administration. GAD65 Ab Assay, CSF 0.00 nmol/L <= 0.02 ADDITIONAL INFORMATION This test was developed and its performance characteristics determined by [facility] in a manner consistent with CLIA requirements. This test has not been cleared or approved by the U.S. Food and Drug Administration. GFAP IFA, CSF Negative Negative ADDITIONAL INFORMATION This test was developed and its performance characteristics determined by [facility] in a manner consistent with CLIA requirements. This test has not been cleared or approved by the U.S. Food and Drug Administration. mGluR1 Ab IFA, CSF (more content not included)... Encephalopathy autoimmune Ab panel (CSF)on 07-17-2024 [facility] MAGNESIUMon 07-17-2024 Magnesium [Mass/Vol] 2.2 mg/dL Normal 1.8-2.6 [facility] Comment on above: Performed By: #### 1 9123-9, 2777-1, BMP, CBC, THYR #### [facility] ([id number]) [address] [facility], [address] [place] [address] Magnesiumon 07-17-2024 Magnesium [Mass/Vol] 2.2 mg/dL 1.8 - 2 .6 mg/dL [facility] No Panel Informationon 07-17 [facility] Bacteria identified Cx Nom ( CSF)on 07-15-2024 Microscopic observation Gram stain Nom (Unsp spec) WHITE BLOOD CELLS PRESENT [facility] Microscopic observation Gram stain Nom (Unsp spec) NO ORGANISMS SEEN [facility] Microscopic observation Gram stain Nom (Unsp spec) ON CONCENTRATED SMEAR [facility] Service comment (Unsp spec) [Interp] NO GROWTH 5 DAYS [facility] Flow Cytometry CSFon 025 Flow cytometry specialist review Ramone (Unsp spec) [Interp] SEE SEPARATE REPORT, REVIEWED BY PATHOLOGIST [facility] Flow cytometry specialist re view Ramone (Unsp spec) [Interp]on 2024 [facility] Lyme MACHINIST APPRENTICE WOOD Infection IgG w/ An tibody Index Reflex, CSF and Serumon 07-13-2024 Pathologist interpretation (Bld) [Interp] See Note [facility] Comment on above: NOTE No antibodies [...] developed and its performance characteristics determined by [facility] in a manner consistent with CLIA requirements. This test has not been cleared or approved by the U.S. Food and Drug Administration. Reference Lab Test ID Negative Negative [facility] [employer] [facility] Reference Lab Test ID See Note [facility] Comment on above: NOTE CSF screen was negative for IgG-class antibodies to Lyme Borrelia species. Testing for IgG-class antibodies to Borrelia in serum is not indicated and was not performed. Test Performed by: [facility] [address] [place] [address] Digital Community Manager: Eduardo Clark Ph.D.; CLIA# [id number] [facility] Cytologyon 07-11-2024 [facility] [address] [place] [address] Cytology Consultation Patient Name:ESTELLA JEFFERY:1965 (Age: 58)Gender:MTaken:06/21Reported:2024 16:49Physician(s):Shun Haley M.D. ([phone])Copy To:Quinton Harrell M.D. Rec. #:[id number]: #[id number] Final Cytologic Diagnosis Cerebrospinal fluid: No malignant cells identified. gr/07/11/2024 Interpretation performed at [facility], [address] [place] [address], License number: [id number].Electro nically Signed Out By Derick Lorenz MD Additional Report(s): Flow Cytometry-Surg/BM/NG Date Reported: 07/13/2024 No flow cytometric abnormalities. The specimen is hypocellular with a sparse lymphoid component. Immunophenotypic analysis of the lymphoid cells demonstrates a mixed population of few phenotypically unremarkable T-cells and polyclonal B-cells. No monoclonal lymphoid population is detected. Immunophenotyping antibodies tested: CD3, CD4, CD5, CD7, CD8, CD19, CD20, CD45, Amasa, and Lambda. Immunophenotyping Comment: Immunophenotyping has been used in this diagnostic evaluation. This test was developed and its performance characteristics determined by the [facility] Clinical Laboratories Department. It has not been [...] perform high-complexity clinical testing. Interpretation performed at [facility], [address] [place], [place] [id number], License number: [id number]. 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 Also received is one cytospin slide from Hematology. Source of Specimen Cerebrospinal fluid Non LEGAL BILLING ANALYST ThinPrep, Cytospin Slide Fee Code(s): 1; 48960, 25812 [facility] System IgG synthesis rate Calc (S+C SF) [Mass/Time]on 07-11-2024 CSF IgG Index Profile SEE COMMENTS 07/11/2024 12:55 PM Work4 Comment on above: NOTE Test Result Flag [...] mg/dL 3500 - 5000 Test Performed by: [facility] [address] [place] [address] Digital Community Manager: Eduardo Clark Ph.D.; CLIA# [id number] Test Performed by: [facility] [address] [place] [address] Digital Community Manager: Eduardo Clark Ph.D.; CLIA# [id number] [facility] Reagin Ab VDRL Ql (CSF)on [facility] VDRL, Spinal Fluidon 025 Reagin Ab VDRL Ql (CSF) Negative Negative [facility] Comment on above: NOTE Test Performed by: [facility] [address] [place] [address] Digital Community Manager: Eduardo Clark Ph.D.; CLIA# [id number] 14-3-3 Protein Tau, Total, C SFon 07-10-2024 Creutzfeldt-Osei Disease SEE NOTE Normal [facility] Comment on above: Result Comment: NOTE [...] thorough examination of autopsy brain tissue. The [facility] is able to offer a no-cost autopsy for this patient. Autopsy can help to delineate whether prion disease is sporadic, acquired or genetic in etiology. [facility] staff ([phone]) are available to work with healthcare providers and the patient's family to plan an autopsy, if desired. Reviewed and Approved By: Tia Weinberg, PhD Performed By: [facility] [address] [place] [address] Performed By: #### 1 9123-9, 2777-1, BMP, CBC, THYR #### [facility] ([id number]) [address] [place] [address], [address] [place] [address] CSF CULTUREon 07-10-2024 Bacteria identified Cx Nom (CSF) GRAM STAIN WHITE BLOOD CELLS PRESENT NO ORGANISMS SEEN ON CONCENTRATED SMEAR CULTURE RESULTS NO GROWTH 5 DAYS Normal [facility] Comment on above: Performed By: #### 1 9123-9, 2777-1, BMP, CBC, THYR #### [facility] ([id number]) [address] [place] [address], [address] [place] [address] CSF spinal fluid cell counto n 07-10-2024 Clarity (CSF) CLEAR [facility] Color (CSF) COLORLESS [facility] Color (Spun CSF) COLORLESS [facility] Differential panel (Dial fld) NUCLEATED CELLS <5/uL; DIFF NOT TESTED [facility] Interpretation and review of laboratory results Abnormal [facility] Laboratory comment Ramone (Report) TUBE 3 [facility] Nucleated cells Manual cnt (CSF) [#/Vol] 0.001 10*3/uL 0 - 5 /uL [facility] RBC Manual cnt (CSF) [#/Vol] 48 /uL High 0 - 1 /uL [facility] Csf total proteinon 07-10-19 25 Protein (CSF) [Mass/Vol] 45 mg/dL 15 - 45 mg/dL [facility] Cytologyon 07-10-2024 Cytology Normal [facility] Comment on above: Result Comment: [facility] [address] [place] [address] Cytology Consultation Patient Name:ESTELLA JEFFERY:1965 (Age: 58)Gender:MTaken:07/10/2024Reported:07/11/2024 16:49Physician(s):Arnulfo Haley M.D. ([phone])Copy To:Quinton Harrell M.D. Rec. #:[id number]: #[id number] Final Cytologic Diagnosis Cerebrospinal fluid: No malignant cells identified. gr/07/11/2024 Interpretation performed at [facility], [address] [place] [address], License number: [id number].Electronically Signed Out By Derick Lorenz MD Additional Report(s): Flow Cytometry-Surg/BM/NG Date Reported: 07/13/2024 No flow cytometric abnormalities. The specimen is hypocellular with a sparse lymphoid component. Immunophenotypic analysis of the lymphoid cells demonstrates a mixed population of few phenotypically unremarkable T-cells and polyclonal B-cells. No monoclonal lymphoid population is detected. Immunophenotyping antibodies tested: CD3, CD4, CD5, CD7, CD8, CD19, CD20, CD45, Amasa, and Lambda. Immunophenotyping Comment: Immunophenotyping has been used in this diagnostic evaluation. This test was developed and its performance characteristics determined by the [facility]. It has not been [...] perform high-complexity clinical testing. Interpretation performed at [facility] [address] [address], License number: [id number]. 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 Also received is one cytospin slide from Hematology. Source of Specimen Cerebrospinal fluid Non LEGAL BILLING ANALYST ThinPrep, Cytospin Slide Fee Code(s): 1; 48253, 98973 Encephalopathy autoimmune Ab panel (CSF)on 01-21-2025 ENCEPHALOPATHY-AUTOIM MUNE EVAL - CSF SEE COMMENTS 07/17/2024 05:00 PM Normal [facility] Comment on above: Result Comment: NOTE [...] developed and its performance characteristics determined by [facility] in a manner consistent with CLIA requirements. This test has not been cleared or approved by the U.S. Food and Drug Administration. Amphiphysin Ab, CSF Negative Negative ADDITIONAL INFORMATION This test was developed and its performance characteristics determined by [facility] in a manner consistent with CLIA requirements. This test has not been cleared or approved by the U.S. Food and Drug Administration. AGNA-1, CSF Negative Negative ADDITIONAL INFORMATION This test was developed and its performance characteristics determined by [facility] in a manner consistent with CLIA requirements. This test has not been cleared or approved by the U.S. Food and Drug Administration. MARKEL-1, CSF Negative Negative ADDITIONAL INFORMATION This test was developed and its performance characteristics determined by [facility] in a manner consistent with CLIA requirements. This test has not been cleared or approved by the U.S. Food and Drug Administration. MARKEL-2, CSF Negative Negative ADDITIONAL INFORMATION This test was developed and its performance characteristics determined by [facility] in a manner consistent with CLIA requirements. This test has not been cleared or approved by the U.S. Food and Drug Administration. MARKEL-3, CSF Negative Negative ADDITIONAL INFORMATION This test was developed and its performance characteristics determined by [facility] in a manner consistent with CLIA requirements. This test has not been cleared or approved by the U.S. Food and Drug Administration. CASPR2-IgG CBA, CSF Negative Negative ADDITIONAL INFORMATION This test was developed and its performance characteristics determined by [facility] in a manner consistent with CLIA requirements. This test has not been cleared or approved by the U.S. Food and Drug Administration. CRMP-5-IgG, CSF Negative Negative ADDITIONAL INFORMATION This test was developed and its performance characteristics determined by [facility] in a manner consistent with CLIA requirements. This test has not been cleared or approved by the U.S. Food and Drug Administration. DPPX Ab CBA, CSF Negative Negative ADDITIONAL INFORMATION This test was developed and its performance characteristics determined by [facility] in a manner consistent with CLIA requirements. This test has not been cleared or approved by the U.S. Food and Drug Administration. NICOLE-B-R Ab CBA, CSF Negative Negative ADDITIONAL INFORMATION This test was developed and its performance characteristics determined by [facility] in a manner consistent with CLIA requirements. This test has not been cleared or approved by the U.S. Food and Drug Administration. GAD65 Ab Assay, CSF 0.00 nmol/L <= 0.02 ADDITIONAL INFORMATION This test was developed and its performance characteristics determined by [facility] in a manner consistent with CLIA requirements. This test has not been cleared or approved by the U.S. Food and Drug Administration. GFAP IFA, CSF Negative Negative ADDITIONAL INFORMATION This test was developed and its performance characteristics determined by [facility] in a manner consistent with CLIA requirements. This test has not been cleared or approved by the U.S. Food and Drug Administration. mGluR1 Ab IFA, CSF Negative Negative ADDITIONAL INFORMATION This test was developed and its performance characteristics determined by [facility] in a manner consistent with CLIA requirements. This test has not been cleared or approved by the U.S. Food and Drug Administration. IgLON5 CBA, CSF Negative Negative ADDITIONAL INFORMATION This test was developed and its performance characteristics determined by [facility] in a manner consistent with CLIA requirements. This test has not been cleared or approve (more content not included)... Performed By: #### 1 9123-9, 2777-1, BMP, CBC, THYR #### [facility] ([id number]) [address] [facility], [address] [place] [address] Flow cytometry specialist re view Ramone (Unsp spec) [Interp]on 07-10-2024 FLOW CYTOMETRY CSF SEE SEPARATE REPORT, REVIEWED BY PATHOLOGIST Normal [facility] Comment on above: Performed By: #### 1 9123-9, 2777-1, BMP, CBC, THYR #### [facility] ([id number]) [address], [address] [place] [address] Glucose (CSF) [Mass/Vol]on 0 07-10-2024 CSF GLUCOSE 66 mg/dL Normal 40-70 [facility] Comment on above: Performed By: #### 1 9123-9, 2777-1, BMP, CBC, THYR #### [facility] ([id number]) [address], [address] [place] [address] Glucose, CSFon 07-10-2024 Glucose (CSF) [Mass/Vol] 66 mg/dL 40 - 70 mg/dL [facility] LYME MACHINIST APPRENTICE WOOD Infection IgG w/ An tibody Index Reflex, CSF and Serumon 07-10-2024 LYME MACHINIST APPRENTICE WOOD IGG INTERP. See Note Normal [facility] Comment on above: Result Comment: NOTE No [...] developed and its performance characteristics determined by [facility] in a manner consistent with CLIA requirements. This test has not been cleared or approved by the U.S. Food and Drug Administration. LYME MACHINIST APPRENTICE WOOD IGG, CSF Negative Normal Negative [facility] LYME MACHINIST APPRENTICE WOOD IGG, SERUM See Note Normal [facility] Comment on above: Result Comment: NOTE CSF screen was negative for IgG-class antibodies to Lyme Borrelia species. Testing for IgG-class antibodies to Borrelia in serum is not indicated and was not performed. Test Performed by: [facility] [address] [place] [address] Digital Community Manager: Eduardo Clark Ph.D.; CLIA# [id number] Lumbar Punctureon 07-10-2024 Arnulfo Haley MD 07/10/2024 [...] to verify the correct patient, procedure, equipment, ict support and test engineers and site/side marked as required. Anesthesia: local infiltration Anesthesia: Local Anesthetic: lidocaine 1% without epinephrine Sedation: Patient sedated: yes Lumbar space: L3-L4 interspace Patient's position: left lateral decubitus Opening pressure: 12 cm H2O Fluid appearance: clear Tubes of fluid: 4 Total volume: 17.5 ml Post-procedure: pressure dressing applied and adhesive bandage applied Procedure was completed Complications: none MANUALLY TRANSCRIBED RESULTS [facility] MENINGITIS PANELon 5 Meningitis+Encephalit is pathogens [...] NEOFORMANS Not detected (qualifier value) Normal NDET [facility] Comment on above: Performed By: #### 1 9123-9, 2777-1, BMP, CBC, THYR #### [facility] ([id number]) [address] [address] [facility], [address] [place] [address] MR BRAIN W WO CONTon 025 MR BRAIN W WO CONT MR BRAIN W WO CONT STUDY: MRI brain with without contrast . CLINICAL HISTORY: Mental status change, unknown cause COMPARISON: July 03, 2024 brain MRI from [facility] Procedure: Multiplanar, multisequence imaging performed through [...] and cranio-cervical junction. Flow voids documented in al[place] of [place] and dural venous sinuses. No [...] Lu MD on 07/10/2024 11:31 AM Normal [facility] MR Brain WO and W contrast I Von 07-10-2024 STUDY: MRI brain with without contrast . CLINICAL HISTORY: Mental status change, unknown cause COMPARISON: July 03, 2024 brain MRI from [facility] Procedure: Multiplanar, multisequence imaging performed through [...] and cranio-cervical junction. Flow voids documented in alatna of [place] and dural venous sinuses. No [...] Wilson Lu MD on 07/10/2024 11:31 AM [facility] Wilson Lu MD - 07/10/2024 STUDY: MRI brain with without contrast . CLINICAL HISTORY: Mental status change, unknown cause COMPARISON: July 03, 2024 brain MRI from [facility] Procedure: Multiplanar, multisequence imaging performed through [...] and cranio-cervical junction. Flow voids documented in alat[place] of [place] and dural venous sinuses. No [...] Wilson Lu MD on 07/10/2024 11:31 AM [facility] Radiology Study observation (narrative) [facility] MR Brain WO and W contrast I VOrdered By: Wilson Lu on 07-10-2024 [facility] Work Phone: Meningitis+Encephalitis path ogens DNA and RNA panel LILLIANA+non-probe (CSF)on 07-10-2024 C. gattii+neoformans DNA LILLIANA+non-probe Ql (CSF) Not detected Not Detected^No t Detected [facility] CMV DNA LILLIANA+non-probe Ql (CSF) Not detected Not Detected^No t Detected [facility] E. coli K1 DNA LILLIANA+non-probe Ql (CSF) Not detected Not Detected^No t Detected [facility] Enterovirus RNA LILLIANA+non-probe Ql (CSF) Not detected Not Detected^No t Detected [facility] H. influenzae DNA LILLIANA+non-probe Ql (CSF) Not detected Not Detected^No t Detected [facility] HHV 6 DNA LILLIANA+non-probe Ql (CSF) Not detected Not Detected^No t Detected [facility] HSV 1 DNA LILLIANA+non-probe Ql (CSF) Not detected Not Detected^No t Detected [facility] HSV 2 DNA LILLIANA+non-probe Ql (CSF) Not detected Not Detected^No t Detected [facility] L. monocytogenes DNA LILLIANA+non-probe Ql (CSF) Not detected Not Detected^No t Detected [facility] N. meningitidis DNA LILLIANA+non-probe Ql (CSF) Not detected Not Detected^No t Detected [facility] Parechovirus A RNA LILLIANA+non-probe Ql (CSF) Not detected Not Detected^No t Detected [facility] S. agalactiae DNA LILLIANA+non-probe Ql (CSF) Not detected Not Detected^No t Detected [facility] S. pneumoniae DNA LILLIANA+non-probe Ql (CSF) Not detected Not Detected^No t Detected [facility] Specimen source Nom (Body fld) CEREBROSPINAL FLUID [facility] VZV DNA LILLIANA+non-probe Ql (CSF) Not detected Not Detected^No t Detected [facility] No Panel Informationon 07-10 [facility] Protein (CSF) [Mass/Vol]on 0 07-10-2024 CSF TOTAL PROTEIN 45 mg/dL Normal 15-45 [facility] Comment on above: Performed By: #### 1 9123-9, 2777-1, BMP, CBC, THYR #### [facility] ([id number]) [address], [address] [place] [address] Reagin Ab VDRL Ql (CSF)on VDRL, Spinal Fluid Negative Normal Negative [facility] Comment on above: Result Comment: NOTE Test Performed by: [facility] [place] [address] Digital Community Manager: Eduardo Clark Ph.D.; CLIA# [id number] Performed By: #### 1 9123-9, 2777-, BMP, CBC, THYR #### [facility] ([id number]) [address], [address] [place] [address] SPINAL FLUID CELL CTon 07-10 CSF CLARITY CLEAR Normal [facility] Comment on above: Performed By: #### 1 9123-9, 2777-, BMP, CBC, THYR #### [facility] ([id number]) [address], [address] [place] [address] CSF COLOR COLORLESS Normal [facility] Comment on above: Performed By: #### 1 9123-9, 2777-, BMP, CBC, THYR #### [facility] ([id number]) [address], [address] [place] [address] CSF COMMENT TUBE 3 Normal [facility] Comment on above: Performed By: #### 1 9123-9, 2777-1, BMP, CBC, THYR #### [facility] ([id number]) [address], [address] [place] [address] CSF NUCLEATED CELLS 1 /uL Normal 0-5 [facility] Comment on above: Performed By: #### 1 9123-9, 277-1, BMP, CBC, THYR #### [facility] ([id number]) [address], [address] [place] [address] CSF RBC 48 /uL High 0-1 [facility] Comment on above: Performed By: #### 1 9123-9, 2777-, BMP, CBC, THYR #### [facility] ([id number]) [address], [address] [place] [address] CSF SUPERNATANT COLORLESS Normal [facility] Comment on above: Performed By: #### 1 9123-9, 2777-, BMP, CBC, THYR #### [facility] ([id number]) [address], [address] [place] [address] SF DIFF NUCLEATED CELLS <5/uL; DIFF NOT TESTED Normal [facility] Comment on above: Performed By: #### 1 9123-9, 2777-, BMP, CBC, THYR #### [facility] ([id number]) [address], [address] [place] [address] B. burgdorferi IgG+IgM Qn (S )on 07-09-2024 [facility] ECG 12 leadon 07-09-2024 [facility] IgG synthesis rate Calc (S+C SF) [Mass/Time]on 07-09-2024 CSF IgG Index Profile SEE COMMENTS 07/11/2024 12:55 PM Normal [facility] Comment on above: Result Comment: NOTE [...] mg/dL 3500 - 5000 Test Performed by: [facility] [address] [place] [address] Digital Community Manager: Eduardo Clark Ph.D.; CLIA# [id number] Test Performed by: [facility] [address] [place] [address] Digital Community Manager: Eduardo Clark Ph.D.; CLIA# [id number] TANNER Virus Antibody W/Reflexon 07-09-2024 TANNER Virus Antibody Positive Abnormal [facility] Comment on above: Result [...] index.(1) (1) TYSABRI(natalizumab)US Prescribing Information Performed by: [facility] [address] [place] [address] Jessenia Bagley MD, PhD, TANNER Virus Index 2.94 [facility] Comment on above: Result Comment: NOTE Performed by: [facility] [address] [place] [address] Jessenia Bagley MD, PhD, Laboratory comment Ramone (Repo rt)on 07-09-2024 [facility] UNLISTED LAB TEST Sent to reference lab Normal [facility] Lyme Totalon 07-09-2024 B. burgdorferi IgG+IgM Qn (S) A1 NINF - 0.9 A1 [facility] Comment on above: Interpretation-------- <0.9 Negative [...] (PPP) [Relative time] 1.1 {INR} Normal 0.8-1.1 [facility] Comment on above: Performed By: #### 1 9123-9, 2777-1, BMP, CBC, THYR #### [facility] ([id number]) [address] [place] [address] PT Coag (PPP) [Time] 12.4 s Normal 9.8-13.2 [facility] Comment on above: Performed By: #### 1 9123-9, 2777-1, BMP, CBC, THYR #### [facility] ([id number]) [address] [place] [address], [address] [address] Protime & INRon 07-09-2024 INR Coag (PPP) [Relative time] 1.1 {INR} [facility] PT Coag (PPP) [Time] 12.4 s [facility] Syphilis Total(Unknown Syphi lis Status)on 07-09-2024 T. pallidum IgG+IgM IA Ql (S) [facility] Comment on above: NON REACTIVE No serologic evidence of infection to Treponema pallidum (syphilis). Repeat testing may be considered in patients with suspected acute or primary syphilis in 2 to 4 weeks. T. pallidum IgG+IgM IA Ql (S )on 07-09-2024 [facility] Unlisted Lab Test TANNER viruson 07-09-2024 Laboratory comment Ramone (Report) Sent to reference lab [facility] AMMONIAon 07-08-2024 Ammonia (P) [Moles/Vol] 40 umol/L Normal 18-72 [facility] Comment on above: Result Comment: SPEC IMEN HEMOLYZED, RESULTS INCREASED SLIGHTLY HEMOLYZED NEW REFERENCE RANGE Performed By: #### 1 9123-9, 2777-, BMP, CBC, THYR #### [facility] ([id number]) [address] [facility] [address], [address] [place] [address] Ammoniaon 07-08-2024 Ammonia (P) [Moles/Vol] 40 umol/L 18 - 72 umol/L [facility] Comment on above: SPECIMEN HEMOLYZED, RESULTS INCREASED SLIGHTLY HEMOLYZED NEW REFERENCE RANGE Ammonia (P) [Moles/Vol]on [facility] BASIC METABOLIC PANLon 07-08 Anion gap [Moles/Vol] 6 mmol/L Normal 5-15 [facility] Comment on above: Performed By: #### 1 9123-9, 2777-, BMP, CBC, THYR #### [facility] ([id number]) [address], [address] [place] [address] Calcium [Mass/Vol] 8.3 mg/dL Low 8.5-10.5 [facility] Comment on above: Performed By: #### 1 9123-9, 2777-, BMP, CBC, THYR #### [facility] ([id number]) [address], [address] [place] [address] Chloride [Moles/Vol] 107 mmol/L Normal 98-109 [facility] Comment on above: Performed By: #### 1 9123-9, 2777-, BMP, CBC, THYR #### [facility] ([id number]) [address] [address] [place] [address] CO2 [Moles/Vol] 29 mmol/L Normal 22-32 [facility] Comment on above: Performed By: #### 1 9123-9, 2777-, BMP, CBC, THYR #### [facility] ([id number]) [address], [address] [place] [address] Creatinine [Mass/Vol] 0.91 mg/dL Normal 0.60-1.30 [facility] Comment on above: Result Comment: METH OD TRACEABLE TO IDMS STANDARD Performed By: #### 1 9123-9, 27712-18, BMP, CBC, THYR #### [facility] ([id number]) [address] [address] [place] [address] eGFR (CKD-EPI) NON-RACE DEPENDENT >90 Normal >59 [facility] Comment on above: Result Comment: Reported eGFR is based on the CKD-EPI 2020 equation that does not use a race coefficient. Performed By: #### 1 9123-9, 27712-18, BMP, CBC, THYR #### [facility] ([id number]) [address] [address] [place] [address] Glucose [Mass/Vol] 91 mg/dL Normal 65-99 [facility] Comment on above: Performed By: #### 1 9123-9, 27712-18, BMP, CBC, THYR #### [facility] ([id number]) [address] [address] [place] [address] Potassium [Moles/Vol] 4.1 mmol/L Normal 3.5-5.0 [facility] Comment on above: Performed By: #### 1 9123-9, 277-, BMP, CBC, THYR #### [facility] ([id number]) [address] [address] [place] [address] Sodium [Moles/Vol] 142 mmol/L Normal 134-146 [facility] Comment on above: Performed By: #### 1 9123-9, 2777-1, BMP, CBC, THYR #### [facility] ([id number]) [address] [place] [address] Urea nitrogen [Mass/Vol] 22 mg/dL Normal 5-23 [facility] Comment on above: Performed By: #### 1 9123-9, 2777-1, BMP, CBC, THYR #### [facility] ([id number]) [address] [place] [address] Basic Metabolic Panelon 06-20 Anion gap [Moles/Vol] 6 mmol/L 5 - 15 mmol/L [facility] Calcium [Mass/Vol] 8.3 mg/dL Low 8.5 - 10. 5 mg/dL [facility] Chloride [Moles/Vol] 107 mmol/L 98 - 10 9 mmol/L [facility] CO2 [Moles/Vol] 29 mmol/L 22 - 32 mmol/L [facility] Creatinine [Mass/Vol] 0.91 mg/dL 0.60 - 1.30 mg/dL [facility] Comment on above: METHOD TRACEABLE TO [facility] STANDARD eGFR (CKD-EPI)non-race dependent - PINF [facility] Comment on above: Reported eGFR is based on the CKD-EPI 2020 equation that does not use a race coefficient. Glucose [Mass/Vol] 91 mg/dL 65 - 99 mg/dL [facility] Interpretation and review of laboratory results Abnormal [facility] Potassium [Moles/Vol] 4.1 mmol/L 3.5 - 5.0 mmol/L [facility] Sodium [Moles/Vol] 142 mmol/L 134 - 146 mmol/L [facility] Urea nitrogen [Mass/Vol] 22 mg/dL 5 - 23 mg/dL [facility] CBC without diffon Erythrocyte distribution width (RBC) [Ratio] 15.6 % High 11.5 - 15.0 % [facility] Hematocrit (Bld) [Volume fraction] 39.1 % 39 - 49 % [facility] Hemoglobin (Bld) [Mass/Vol] 12.7 g/dL Low 13.0 - 17.0 g/dL [facility] Interpretation and review of laboratory results Abnormal [facility] MCH (RBC) [Entitic mass] 24.5 pg Low 27 - 34 pg [facility] MCHC (RBC) [Mass/Vol] 32.5 g/dL 32 - 3 6 g/dL [facility] MCV (RBC) [Entitic vol] 75 fL Low 80 - 100 fL [facility] Platelet mean volume (Bld) [Entitic vol] 8.6 fL 7 - 12 fL [facility] Platelets (Bld) [#/Vol] 154 10*3/uL [facility] RBC (Bld) [#/Vol] 5.19 10*6/uL [facility] WBC corrected for nucl RBC Auto (Bld) [#/Vol] 4.1 [facility] COMPLETE BLOOD COUNTon 07-08 Erythrocyte distribution width (RBC) [Ratio] 15.6 % High 11.5-15.0 [facility] Comment on above: Performed By: #### 1 9123-9, 2777-1, BMP, CBC, THYR #### [facility] ([id number]) [address] [place] [address] Hematocrit (Bld) [Volume fraction] 39.1 % Normal 39-49 [facility] Comment on above: Performed By: #### 1 9123-9, 2777-1, BMP, CBC, THYR #### [facility] ([id number]) [address], [address] [place] [address] Hemoglobin (Bld) [Mass/Vol] 12.7 g/dL Low 13.0-17.0 [facility] Comment on above: Performed By: #### 1 9123-9, 2777-1, BMP, CBC, THYR #### [facility] ([id number]) [address], [address] [place] [address] MCH (RBC) [Entitic mass] 24.5 pg Low 27-34 [facility] Comment on above: Performed By: #### 1 9123-9, 277-, BMP, CBC, THYR #### [facility] ([id number]) [address], [facility] [address] [place] [address] MCHC (RBC) [Mass/Vol] 32.5 g/dL Normal 32-36 [facility] Comment on above: Performed By: #### 1 91-9, 27712-18, BMP, CBC, THYR #### [facility] ([id number]) [address], [facility] [address] [place] [address] MCV (RBC) [Entitic vol] 75 fL Low 80-100 [facility] Comment on above: Performed By: #### 1 9123-, 27712-18, BMP, CBC, THYR #### [facility] ([id number]) [address], [facility] [address] [place] [address] Platelet mean volume (Bld) [Entitic vol] 8.6 fL Normal 7-12 [facility] Comment on above: Performed By: #### 1 9123-9, 27712-18, BMP, CBC, THYR #### [facility] ([id number]) [address] [address] [place] [address] Platelets (Bld) [#/Vol] 154 10*3/uL Normal 150-450 [facility] Comment on above: Performed By: #### 1 9123-9, 277-, BMP, CBC, THYR #### [facility] ([id number]) [address], [address] [place] [address] RBC COUNT 5.19 X10E12/L Normal 4.10-5.70 [facility] Comment on above: Performed By: #### 1 9123-9, 277-, BMP, CBC, THYR #### [facility] ([id number]) [address], [address] [place] [address] WBC (Bld) [#/Vol] 4.1 10*3/uL Normal 4.0-11.0 [facility] Comment on above: Performed By: #### 1 9123-9, 2777-1, BMP, CBC, THYR #### [facility] ([id number]) [address] [place] [address] Cobalamin (Vitamin B12) [Mas s/Vol]on 07-08-2024 [facility] EEGon 07-08-2024 Images from the original result were not included. EEG REPORT (Routine) EEG Service Date: 07/08/2024 HISTORY: Estella Jeffery is a 58 y.o. unknown hand [...] MD, PhD Neurology/Clinical Neurophysiology MANUALLY TRANSCRIBED RESULTS [facility] Folateon 07-08-2024 Folate [Mass/Vol] 10.2 ng/mL 5.8 - PINF ng/mL [facility] Comment on above: NEW REFERENCE RANGE Folate [Mass/Vol]on 07-08-19 [facility] FOLIC ACID 10.2 ng/mL Normal >5.8 [facility] Comment on above: Result Comment: NEW REFERENCE RANGE Performed By: #### 1 9123-9, 2777-1, BMP, CBC, THYR #### [facility] ([id number]) [address] [place] [address], [address] [place] [address] HIV 1&2 AB/AG Screen (P24 AG )on 07-08-2024 HIV 1+2 Ab+HIV1 p24 Ag IA Ql Non-Reactive Non-Reactiv e^Non-React deirdre [facility] Comment on above: NEW TEST METHOD [...] Ab+HIV1 p24 Ag IA Ql on 07-08-2024 [facility] HIV 1 and 2 Ab/Ag Screen Non-Reactive Normal NRCT [facility] Comment on above: Result Comment: NEW [...] test results or diagnoses. Performed By: #### 1 9123-9, 2777-1, BMP, CBC, THYR #### [facility] ([id number]) [address] [place] [address] VITAMIN B12on 07-08-2024 Cobalamin (Vitamin B12) [Mass/Vol] 526 pg/mL Normal 180-914 [facility] Comment on above: Performed By: #### 1 9123-9, 2777-1, BMP, CBC, THYR #### [facility] ([id number]) [address] [facility], [address] [place] [address] Vitamin B12on 07-08-2024 Cobalamin (Vitamin B12) [Mass/Vol] 526 pg/mL 180 - 914 pg/mL [facility] B. burgdorferi IgG+IgM Qn (S )on 07-07-2024 LYME TOTAL <0.2 Normal <0.9 [facility] Comment on above: Result Comment: Interpretation-------- <0.9 Negative 0.9 - 1.0 Equivocal >1.0 Positive No serological evidence of Borrelia infection.A non-reactive result does not exclude the possibility of Borrelia infection and cannot exclude early infection with B.burgdorferi. If Lyme borreliosis is suspected, a second sample should be collected and tested 2-4 weeks later. Performed By: #### 3 4148-7, 97840-0, BMP, CBC #### [facility] ([id number]) [address] [place] [address] BASIC METABOLIC PANLon 07-07 Anion gap [Moles/Vol] 8 mmol/L Normal 5-15 [facility] Comment on above: Performed By: #### 3 4148-7, 09866-6, BMP, CBC #### [facility] ([id number]) [address], [facility] [address] [place] [address] Calcium [Mass/Vol] 8.8 mg/dL Normal 8.5-10.5 [facility] Comment on above: Performed By: #### 3 4148-7, 95745-0, BMP, CBC #### [facility] ([id number]) [address], [facility] [address] [place] [address] Chloride [Moles/Vol] 107 mmol/L Normal 98-109 [facility] Comment on above: Performed By: #### 3 4148-7, 99452-0, BMP, CBC #### [facility] ([id number]) [address], [facility] [address] [place] [address] CO2 [Moles/Vol] 30 mmol/L Normal 22-32 [facility] Comment on above: Performed By: #### 3 4148-7, 65953-5, BMP, CBC #### [facility] ([id number]) [address] [address] [place] [address] Creatinine [Mass/Vol] 1.00 mg/dL Normal 0.60-1.30 [facility] Comment on above: Result Comment: METH OD TRACEABLE TO [facility] STANDARD Performed By: #### 3 4148-7, 58606-5, BMP, CBC #### [facility] ([id number]) [address], [address] [place] [address] GFR/1.73 sq M.predicted among non-blacks MDRD (S/P/Bld) [Vol rate/Area] 87 mL/min/{1.73_m2} Normal >59 [facility] Comment on above: Result Comment: Reported eGFR is based on the CKD-EPI 2020 equation that does not use a race coefficient. Performed By: #### 3 4148-7, 69190-5, BMP, CBC #### [facility] ([id number]) [address] [place] [address] Glucose [Mass/Vol] 106 mg/dL High 65-99 [facility] Comment on above: Performed By: #### 3 4148-7, 01791-8, BMP, CBC #### [facility] ([id number]) [address] [place] [address] Potassium [Moles/Vol] 3.9 mmol/L Normal 3.5-5.0 [facility] Comment on above: Performed By: #### 3 4148-7, 93377-7, BMP, CBC #### [facility] ([id number]) [address] [place] [address] Sodium [Moles/Vol] 145 mmol/L Normal 134-146 [facility] Comment on above: Performed By: #### 3 4148-7, 99370-5, BMP, CBC #### [facility] ([id number]) [address] [place] [address] Urea nitrogen [Mass/Vol] 23 mg/dL Normal 5-23 [facility] Comment on above: Performed By: #### 3 4148-7, 11389-7, BMP, CBC #### [facility] ([id number]) [address] [place] [address] Basic Metabolic Panelon 06-20 Anion gap [Moles/Vol] 8 mmol/L 5 - 15 mmol/L [facility] Calcium [Mass/Vol] 8.8 mg/dL 8.5 - 10. 5 mg/dL [facility] Chloride [Moles/Vol] 107 mmol/L 98 - 10 9 mmol/L [facility] CO2 [Moles/Vol] 30 mmol/L 22 - 32 mmol/L [facility] Creatinine [Mass/Vol] 1 mg/dL 0.60 - 1.30 mg/dL [facility] Comment on above: METHOD TRACEABLE TO [facility] STANDARD eGFR (CKD-EPI)non-race dependent 87 - PINF [facility] Comment on above: Reported eGFR is based on the CKD-EPI 2020 equation that does not use a race coefficient. Glucose [Mass/Vol] 106 mg/dL High 65 - 99 mg/dL [facility] Interpretation and review of laboratory results Abnormal [facility] Potassium [Moles/Vol] 3.9 mmol/L 3.5 - 5.0 mmol/L [facility] Sodium [Moles/Vol] 145 mmol/L 134 - 146 mmol/L [facility] Urea nitrogen [Mass/Vol] 23 mg/dL 5 - 23 mg/dL [facility] CBC without diffon Erythrocyte distribution width (RBC) [Ratio] 15.3 % High 11.5 - 15.0 % [facility] Hematocrit (Bld) [Volume fraction] 41.3 % 39 - 49 % [facility] Hemoglobin (Bld) [Mass/Vol] 13.4 g/dL 13.0 - 17.0 g/dL [facility] Interpretation and review of laboratory results Abnormal [facility] MCH (RBC) [Entitic mass] 24.7 pg Low 27 - 34 pg [facility] MCHC (RBC) [Mass/Vol] 32.5 g/dL 32 - 3 6 g/dL [facility] MCV (RBC) [Entitic vol] 76 fL Low 80 - 100 fL [facility] Platelet mean volume (Bld) [Entitic vol] 7.8 fL 7 - 12 fL [facility] Platelets (Bld) [#/Vol] 152 10*3/uL [facility] RBC (Bld) [#/Vol] 5.45 10*6/uL [facility] WBC corrected for nucl RBC Auto (Bld) [#/Vol] 4.4 [facility] COMPLETE BLOOD COUNTon 07-07 Erythrocyte distribution width (RBC) [Ratio] 15.3 % High 11.5-15.0 [facility] Comment on above: Performed By: #### 3 4148-7, 65765-4, BMP, CBC #### [facility] ([id number]) [address] [place] [address] Hematocrit (Bld) [Volume fraction] 41.3 % Normal 39-49 [facility] Comment on above: Performed By: #### 3 4148-7, 73490-9, BMP, CBC #### [facility] ([id number]) [address], [facility] [address] [place] [address] Hemoglobin (Bld) [Mass/Vol] 13.4 g/dL Normal 13.0-17.0 [facility] Comment on above: Performed By: #### 3 4148-7, 40869-0, BMP, CBC #### [facility] ([id number]) [address], [facility] [address] [place] [address] MCH (RBC) [Entitic mass] 24.7 pg Low 27-34 [facility] Comment on above: Performed By: #### 3 4148-7, 72405-4, BMP, CBC #### [facility] ([id number]) [address], [facility] [address] [place] [address] MCHC (RBC) [Mass/Vol] 32.5 g/dL Normal 32-36 [facility] Comment on above: Performed By: #### 3 4148-7, 50021-4, BMP, CBC #### [facility] ([id number]) [address], [address] [place] [address] MCV (RBC) [Entitic vol] 76 fL Low 80-100 [facility] Comment on above: Performed By: #### 3 4148-7, 30925-0, BMP, CBC #### [facility] ([id number]) [address], [address] [place] [address] Platelet mean volume (Bld) [Entitic vol] 7.8 fL Normal 7-12 [facility] Comment on above: Performed By: #### 3 4148-7, 61065-0, BMP, CBC #### [facility] ([id number]) [address], [address] [place] [address] Platelets (Bld) [#/Vol] 152 10*3/uL Normal 150-450 [facility] Comment on above: Performed By: #### 3 4148-7, 35939-9, BMP, CBC #### [facility] ([id number]) [address] [place] [address] RBC COUNT 5.45 X10E12/L Normal 4.10-5.70 [facility] Comment on above: Performed By: #### 3 4148-7, 71513-2, BMP, CBC #### [facility] ([id number]) [address], [address] [place] [address] WBC (Bld) [#/Vol] 4.4 10*3/uL Normal 4.0-11.0 [facility] Comment on above: Performed By: #### 3 4148-7, 95712-8, BMP, CBC #### [facility] ([id number]) [address] [place] [address] CT BRAIN WO CONTon 5 CT BRAIN [...] Johnson MD on 07/07/2024 9:19 AM Normal [facility] CT Head WO contraston 2024 CT [...] Delonte Johnson MD on 07/07/2024 9:19 AM [facility] Delonte Johnson MD - 07/07/2024 CT BRAIN [...] Delonte Johnson MD on 07/07/2024 9:19 AM Work4 Radiology Study observation (narrative) Work4 CT Head WO contrastOrdered B y: Delonte Johnson on 07-07-2024 [employer] [facility] Work Phone: EEGon 07-07-2024 Images from the original result were not included. EEG REPORT (Routine) EEG Service Date: 07/06/2024 HISTORY: Estella Jeffery is a 58 y.o. unknown hand [...] RESULTS EEGOrdered By: Reji Sanon on 07-07-2024 [facility] Work Phone: T. pallidum IgG+IgM IA Ql (S )on 07-07-2024 Syphilis Total <0.2 Normal 0.0-0.8 [facility] Comment on above: Result Comment: NON REACTIVE No serologic evidence of infection to Treponema pallidum (syphilis). Repeat testing may be considered in patients with suspected acute or primary syphilis in 2 to 4 weeks. Performed By: #### 3 4148-7, 12692-0, BMP, CBC #### [facility] ([id number]) [address] [place] [address] BASIC METABOLIC PANLon 07-06 Anion gap [Moles/Vol] 7 mmol/L Normal 5-15 [facility] Comment on above: Performed By: #### 1 9123-9, 2777-1, BMP, CBC, THYR #### [facility] ([id number]) [address], [address] [place] [address] Calcium [Mass/Vol] 8.8 mg/dL Normal 8.5-10.5 [facility] Comment on above: Performed By: #### 1 9123-9, 2777-1, BMP, CBC, THYR #### [facility] ([id number]) [address], [address] [place] [address] Chloride [Moles/Vol] 105 mmol/L Normal 98-109 [facility] Comment on above: Performed By: #### 1 9123-9, 2777-1, BMP, CBC, THYR #### [facility] ([id number]) [address], [address] [place] [address] CO2 [Moles/Vol] 30 mmol/L Normal 22-32 [facility] Comment on above: Performed By: #### 1 9123-9, 2777-, BMP, CBC, THYR #### [facility] ([id number]) [address], [address] [place] [address] Creatinine [Mass/Vol] 1.00 mg/dL Normal 0.60-1.30 [facility] Comment on above: Result Comment: METH OD TRACEABLE TO [facility]MS STANDARD Performed By: #### 1 9123-9, 277-, BMP, CBC, THYR #### [facility] ([id number]) [address], [facility] [address] [place] [address] GFR/1.73 sq M.predicted among non-blacks MDRD (S/P/Bld) [Vol rate/Area] 87 mL/min/{1.73_m2} Normal >59 [facility] Comment on above: Result Comment: Reported eGFR is based on the CKD-EPI 2020 equation that does not use a race coefficient. Performed By: #### 1 9123-9, 2777-, BMP, CBC, THYR #### [facility] ([id number]) [address], [address] [place] [address] Glucose [Mass/Vol] 102 mg/dL High 65-99 [facility] Comment on above: Performed By: #### 1 9123-9, 2777-, BMP, CBC, THYR #### [facility] ([id number]) [address], [address] [place] [address] Potassium [Moles/Vol] 4.0 mmol/L Normal 3.5-5.0 [facility] Comment on above: Performed By: #### 1 9123-9, 2777-, BMP, CBC, THYR #### [facility] ([id number]) [address], [address] [place] [address] Sodium [Moles/Vol] 142 mmol/L Normal 134-146 [facility] Comment on above: Performed By: #### 1 9123-9, 2777-1, BMP, CBC, THYR #### [facility] ([id number]) [address] [facility], [address] [place] [address] Urea nitrogen [Mass/Vol] 22 mg/dL Normal 5-23 [facility] Comment on above: Performed By: #### 1 9123-9, 2777-1, BMP, CBC, THYR #### [facility] ([id number]) [address] [facility], [address] [place] [address] Basic Metabolic Panelon 06-20 Anion gap [Moles/Vol] 7 mmol/L 5 - 15 mmol/L [facility] Calcium [Mass/Vol] 8.8 mg/dL 8.5 - 10. 5 mg/dL [facility] Chloride [Moles/Vol] 105 mmol/L 98 - 10 9 mmol/L [facility] CO2 [Moles/Vol] 30 mmol/L 22 - 32 mmol/L [facility] Creatinine [Mass/Vol] 1 mg/dL 0.60 - 1.30 mg/dL [facility] Comment on above: METHOD TRACEABLE TO [facility] STANDARD eGFR (CKD-EPI)non-race dependent 87 - PINF [facility] Comment on above: Reported eGFR is based on the CKD-EPI 2020 equation that does not use a race coefficient. Glucose [Mass/Vol] 102 mg/dL High 65 - 99 mg/dL [facility] Interpretation and review of laboratory results Abnormal [facility] Potassium [Moles/Vol] 4 mmol/L 3.5 - 5.0 mmol/L [facility] Sodium [Moles/Vol] 142 mmol/L 134 - 146 mmol/L [facility] Urea nitrogen [Mass/Vol] 22 mg/dL 5 - 23 mg/dL [facility] CBC without diffon Erythrocyte distribution width (RBC) [Ratio] 15.5 % High 11.5 - 15.0 % [facility] Hematocrit (Bld) [Volume fraction] 42.8 % 39 - 49 % [facility] Hemoglobin (Bld) [Mass/Vol] 14.1 g/dL 13.0 - 17.0 g/dL [facility] Interpretation and review of laboratory results Abnormal [facility] MCH (RBC) [Entitic mass] 24.7 pg Low 27 - 34 pg [facility] MCHC (RBC) [Mass/Vol] 33 g/dL 32 - 3 6 g/dL [facility] MCV (RBC) [Entitic vol] 75 fL Low 80 - 100 fL [facility] Platelet mean volume (Bld) [Entitic vol] 7.8 fL 7 - 12 fL [facility] Platelets (Bld) [#/Vol] 169 10*3/uL [facility] RBC (Bld) [#/Vol] 5.71 10*6/uL [facility] WBC corrected for nucl RBC Auto (Bld) [#/Vol] 4.7 [facility] COMPLETE BLOOD COUNTon 07-06 Erythrocyte distribution width (RBC) [Ratio] 15.5 % High 11.5-15.0 [facility] Comment on above: Performed By: #### 1 9123-9, 2777-1, BMP, CBC, THYR #### [facility] ([id number]) [address] [place] [address] Hematocrit (Bld) [Volume fraction] 42.8 % Normal 39-49 [facility] Comment on above: Performed By: #### 1 9123-9, 2777-1, BMP, CBC, THYR #### [facility] ([id number]) [address] [place] [address] Hemoglobin (Bld) [Mass/Vol] 14.1 g/dL Normal 13.0-17.0 [facility] Comment on above: Performed By: #### 1 9123-9, 2777-1, BMP, CBC, THYR #### [facility] ([id number]) [address] [place] [address] MCH (RBC) [Entitic mass] 24.7 pg Low 27-34 [facility] Comment on above: Performed By: #### 1 9123-9, 27712-18, BMP, CBC, THYR #### [facility] ([id number]) [address] [place] [address] MCHC (RBC) [Mass/Vol] 33.0 g/dL Normal 32-36 [facility] Comment on above: Performed By: #### 1 91-, 27712-18, BMP, CBC, THYR #### [facility] ([id number]) [address] [place] [address] MCV (RBC) [Entitic vol] 75 fL Low 80-100 [facility] Comment on above: Performed By: #### 1 91-9, 27712-18, BMP, CBC, THYR #### [facility] ([id number]) [address] [place] [address] Platelet mean volume (Bld) [Entitic vol] 7.8 fL Normal 7-12 [facility] Comment on above: Performed By: #### 1 9123-, 2776-06, BMP, CBC, THYR #### [facility] ([id number]) [address] [place] [address] Platelets (Bld) [#/Vol] 169 10*3/uL Normal 150-450 [facility] Comment on above: Performed By: #### 1 9123-9, 27712-18, BMP, CBC, THYR #### [facility] ([id number]) [address] [place] [address] RBC COUNT 5.71 X10E12/L High 4.10-5.70 [facility] Comment on above: Performed By: #### 1 9123-9, 277-, BMP, CBC, THYR #### [facility] ([id number]) [address] [place] [address] WBC (Bld) [#/Vol] 4.7 10*3/uL Normal 4.0-11.0 [facility] Comment on above: Performed By: #### 1 9123-9, 2777-, BMP, CBC, THYR #### [facility] ([id number]) [address] [place] [address] MAGNESIUMon 07-06-2024 Magnesium [Mass/Vol] 1.9 mg/dL Normal 1.8-2.6 [facility] Comment on above: Performed By: #### 1 9123-9, 277-, BMP, CBC, THYR #### [facility] ([id number]) [address] [place] [address] Magnesiumon 07-06-2024 Magnesium [Mass/Vol] 1.9 mg/dL 1.8 - 2 .6 mg/dL [facility] No Panel Informationon 07-06 [facility] PHOSPHORUSon 07-06-2024 Phosphate [Mass/Vol] 4.1 mg/dL Normal 2.4-4.9 [facility] Comment on above: Performed By: #### 1 9123-9, 27712-18, BMP, CBC, THYR #### [facility] ([id number]) [address] [place] [address] Phosphoruson 07-06-2024 Phosphate [Mass/Vol] 4.1 mg/dL 2.4 - 4 .9 mg/dL [facility] THYROID PROFILEon 07-06-2024 Free T4 [Mass/Vol] 0.84 ng/dL Normal 0.61-1.60 [facility] Comment on above: Performed By: #### 1 9123-9, 2777-, BMP, CBC, THYR #### [facility] ([id number]) [address] [place] [address] TSH 1.16 uIU/mL Normal 0.49-4.67 [facility] Comment on above: Performed By: #### 1 9123-9, 2777-1, BMP, CBC, THYR #### [facility] ([id number]) [address] [facility], [address] [place] [address] Thyroid profile includes TSH FT4on 07-06-2024 Free T4 [Mass/Vol] 0.84 ng/dL 0.61 - 1. 60 ng/dL [facility] TSH Qn 1.16 m[IU]/L [facility] ACETAMINOPHENon 06-24-2024 Acetaminophen [Mass/Vol] 3.3 ug/mL Low 10.0-30.[address] [facility] Comment on above: Result Comment: Refe rence ranges are for therapeutic limits. Performed By: #### C BCA, CMP, 5643-2, 3298-7, 4024-6, THYR #### [facility] ([id number]) [address] [place] [address] CBC AND AUTO DIFFon 06-24-19 25 ABSOLUTE BASOPHIL 0.1 X10E9/L Normal 0.0-0.2 [facility] Comment on above: Performed By: #### C BCA, CMP, 5643-2, 3298-7, 4024-6, THYR #### [facility] ([id number]) [address] [place] [address] ABSOLUTE NEUTROPHIL 3.1 X10E9/L Normal 1.5-6.6 [facility] Comment on above: Performed By: #### C BCA, CMP, 5643-2, 3298-7, 4024-6, THYR #### [facility] ([id number]) [address] [place] [address] 61686 Basophils/100 WBC (Bld) 1.0 % Normal [facility] Comment on above: Performed By: #### C BCA, CMP, 5643-2, 3298-7, 4024-6, THYR #### [facility] ([id number]) [address] [place] [address] 82705 Eosinophils (Bld) [#/Vol] 0.1 10*3/uL Normal 0.0-0.[address] [facility] Comment on above: Performed By: #### C BCA, [facility], 5643-2, 3298-7, 4024-6, THYR #### [facility] ([id number]) [address] [place] [address] 05653 Eosinophils/100 WBC (Bld) 1.4 % Normal [facility] Comment on above: Performed By: #### C CARRIE, [facility], 5643-2, 3298-7, 4024-6, THYR #### [facility] ([id number]) [address] [place] [address] 18217 Erythrocyte distribution width (RBC) [Ratio] 15.6 % High 11.5-15.[address] [facility] Comment on above: Performed By: #### C CARRIE, [facility], 5643-2, 3298-7, 4024-6, THYR #### [facility] ([id number]) [address] [place] [address] 18306 Hematocrit (Bld) [Volume fraction] 42.7 % Normal 39-[address] [facility] Comment on above: Performed By: #### C CARRIE, [facility], 5643-2, 3298-7, 4024-6, THYR #### [facility] ([id number]) [address] [place] [address] 04219 Hemoglobin (Bld) [Mass/Vol] 14.3 g/dL Normal 13.0-17.[address] [facility] Comment on above: Performed By: #### C BCA, CMP, 5643-2, 3298-7, 4024-6, THYR #### [facility] ([id number]) [address] [place] [address] 28810 Lymphocytes (Bld) [#/Vol] 1.8 10*3/uL Normal 1.0-3.[address] [facility] Comment on above: Performed By: #### C CARRIE, OWEN, 5643-2, 3298-7, 4024-6, THYR #### [facility] ([id number]) [address] [place] [address] 62413 Lymphocytes/100 WBC (Bld) 33.3 % Normal [facility] Comment on above: Performed By: #### C CARRIE, CMP, 5643-2, 3298-7, 4024-6, THYR #### [facility] ([id number]) [address] [place] [address] 92176 MCH (RBC) [Entitic mass] 24.7 pg Low 27-[address] [facility] Comment on above: Performed By: #### Emily BUTLER, OWEN, 5643-2, 3298-7, 4024-6, THYR #### [facility] ([id number]) [address] [place] [address] 29378 MCHC (RBC) [Mass/Vol] 33.4 g/dL Normal 32-36 [facility] Comment on above: Performed By: #### C CARRIE, CMP, 5643-2, 3298-7, 4024-6, THYR #### [facility] ([id number]) [address] [place] [address] 17280 MCV (RBC) [Entitic vol] 74 fL Low 80-[address] [facility] Comment on above: Performed By: #### C CARRIE, CMP, 5643-2, 3298-7, 4024-6, THYR #### [facility] ([id number]) [address] [place] [address] 97943 Monocytes (Bld) [#/Vol] 0.4 10*3/uL Normal 0-0.[address] [facility] Comment on above: Performed By: #### C CARRIE, CMP, 5643-2, 3298-7, 4024-6, THYR #### [facility] ([id number]) [address] [place] [address] 78603 Monocytes/100 WBC (Bld) 6.9 % Normal [facility] Comment on above: Performed By: #### C BCA, CMP, 5643-2, 3298-7, 4024-6, THYR #### [facility] ([id number]) [address] [place] [address] 90608 Neutrophils/100 WBC (Bld) 57.4 % Normal [facility] Comment on above: Performed By: #### C BCA, CMP, 5643-2, 3298-7, 4024-6, THYR #### [facility] ([id number]) [address] [place] [address] 43495 Platelet mean volume (Bld) [Entitic vol] 7.8 fL Normal 7-[address] [facility] Comment on above: Performed By: #### C BCA, CMP, 5643-2, 3298-7, 4024-6, THYR #### [facility] ([id number]) [address] [place] [address] 40719 Platelets (Bld) [#/Vol] 174 10*3/uL Normal 150-[address] [facility] Comment on above: Performed By: #### Emily BCA, CMP, 5643-2, 3298-7, 4024-6, THYR #### [facility] ([id number]) [address] [place] [address] 20013 RBC COUNT 5.77 X10E12/L High 4.10-5.[address] [facility] Comment on above: Performed By: #### C BCA, CMP, 5643-2, 3298-7, 4024-6, THYR #### [facility] ([id number]) [address] [place] [address] 90350 WBC (Bld) [#/Vol] 5.4 10*3/uL Normal 4.0-11.0 [facility] Comment on above: Performed By: #### C BCA, CMP, 5643-2, 3298-7, 4024-6, THYR #### [facility] ([id number]) [address] [place] [address] 91774 COMPREHENSIVE METABOLIC PANE Jatin 06-24-2024 Albumin [Mass/Vol] 4.0 g/dL Normal 3.2-5.3 [facility] Comment on above: Performed By: #### C BCA, CMP, 5643-2, 3298-7, 4024-6, THYR #### [facility] ([id number]) [address] [place] [address] 37336 ALP [Catalytic activity/Vol] 65 U/L Normal 39-[address] [facility] Comment on above: Performed By: #### C BCA, CMP, 5643-2, 3298-7, 4024-6, THYR #### [facility] ([id number]) [address] [place] [address] 44723 ALT [Catalytic activity/Vol] 17 U/L Normal 0-[address] [facility] Comment on above: Performed By: #### C BCA, CMP, 5643-2, 3298-7, 4024-6, THYR #### [facility] ([id number]) [address] [place] [address] 13041 Anion gap [Moles/Vol] 8 mmol/L Normal 5-15 [facility] Comment on above: Performed By: #### C BCA, CMP, 5643-2, 3298-7, 4024-6, THYR #### [facility] ([id number]) [address] [place] [address] 59474 AST [Catalytic activity/Vol] 17 U/L Normal 0-[address] [facility] Comment on above: Performed By: #### C BCA, CMP, 5643-2, 3298-7, 4024-6, THYR #### [facility] ([id number]) [address] [place] [address] 47945 Bilirubin [Mass/Vol] 0.7 mg/dL Normal 0.3-1.2 [facility] Comment on above: Performed By: #### C BCA, CMP, 5643-2, 3298-7, 4024-6, THYR #### [facility] ([id number]) [address] [place] [address] 85417 Calcium [Mass/Vol] 8.9 mg/dL Normal 8.5-10.5 [facility] Comment on above: Performed By: #### C BCA, CMP, 5643-2, 3298-7, 4024-6, THYR #### [facility] ([id number]) [address] [place] [address] 99768 Chloride [Moles/Vol] 106 mmol/L Normal 98-109 [facility] Comment on above: Performed By: #### C BCA, CMP, 5643-2, 3298-7, 4024-6, THYR #### [facility] ([id number]) [address] [place] [address] 64982 CO2 [Moles/Vol] 24 mmol/L Normal 22-[address] [facility] Comment on above: Performed By: #### C BCA, CMP, 5643-2, 3298-7, 4024-6, THYR #### [facility] ([id number]) [address] [place] [address] 86424 Creatinine [Mass/Vol] 0.88 mg/dL Normal 0.70-1.20 [facility] Comment on above: Result Comment: METH OD TRACEABLE TO IDMS STANDARD Performed By: #### C BCA, CMP, 5643-2, 3298-7, 4024-6, THYR #### [facility] ([id number]) [address] [place] [address] 68031 eGFR (CKD-EPI) NON-RACE DEPENDENT >90 Normal >[address] [facility] Comment on above: Result Comment: Reported eGFR is based on the CKD-EPI 2020 equation that does not use a race coefficient. Performed By: #### C CARRIE, CMP, 5643-2, 3298-7, 4024-6, THYR #### [facility] ([id number]) [address] [place] [address] 46594 Glucose [Mass/Vol] 105 mg/dL High 65-99 [facility] Comment on above: Performed By: #### C CARRIE, [facility], 5643-2, 3298-7, 4024-6, THYR #### [facility] ([id number]) [address] [place] [address] 41279 Potassium [Moles/Vol] 3.9 mmol/L Normal 3.5-5.0 [facility] Comment on above: Performed By: #### C CARRIE, [facility], 5643-2, 3298-7, 4024-6, THYR #### [facility] ([id number]) [address] [place] [address] 06843 Protein [Mass/Vol] 6.9 g/dL Normal 6.0-8.0 [facility] Comment on above: Performed By: #### C CARRIE, CMP, 5643-2, 3298-7, 4024-6, THYR #### [facility] ([id number]) [address] [place] [address] 20259 Sodium [Moles/Vol] 138 mmol/L Normal 134-146 [facility] Comment on above: Performed By: #### C BCA, CMP, 5643-2, 3298-7, 4024-6, THYR #### [facility] ([id number]) [address] [place] [address] 42126 Urea nitrogen [Mass/Vol] 20 mg/dL Normal 5-[address] [facility] Comment on above: Performed By: #### C BCA, CMP, 5643-2, 3298-7, 4024-6, THYR #### [facility] ([id number]) [address] [place] [address] 80303 DRUG SCREEN, URINEon 025 AMPHETAMINE/METHAMP Negative Normal NEG [facility] Comment on above: Result Comment: AMPH /METH screening cut off = 1000 ng/mL Performed By: #### D FAGAN #### [facility] ([id number]) [address] [place] [address] 25855 BARBITURATES Negative Normal NEG [facility] Comment on above: Result Comment: Izabel iturates screening cut off value = 200 ng/mL Performed By: #### D FAGAN #### [facility] ([id number]) [address] [place] [address] 65624 BENZODIAZEPINES Negative Normal NEG [facility] Comment on above: Result Comment: Skyler odiazepines screening cut off value = 200 ng/mL Performed By: #### D FAGAN #### [facility] ([id number]) [address] [place] [address] 09393 CANNABINOIDS Negative Normal NEG [facility] Comment on above: Result Comment: Sabina abinoids/THC screening cut off value = 50 ng/mL Performed By: #### D FAGAN #### [facility] ([id number]) [address] [place] [address] 95974 COCAINE METABOLITE Negative Normal NEG [facility] Comment on above: Result Comment: Coca ine screening cut off value = 300 ng/mL Performed By: #### D FAGAN #### [facility] ([id number]) [address] [place] [address] 18370 ECSTASY Negative Normal NEG [facility] Comment on above: Result Comment: Ecst asy screening cut off value = 500 ng/mL This report is intended for use in clinical monitoring or management of patients. Performed By: #### D FAGAN #### [facility] ([id number]) [address] [place] [address] 83953 METHADONE Negative Normal NEG [facility] Comment on above: Result Comment: Meth adone screening cut off value = 300 ng/mL. Performed By: #### D FAGAN #### [facility] ([id number]) [address] [place] [address] 96726 OPIATES Negative Normal NEG [facility] Comment on above: Result Comment: Opia ann screening cut off value = 300 ng/mL NOTE: This test is used for the detection of codeine, hydrocodone (>1000 ng/mL), morphine and hydromorphone (>900 ng/mL) in urine. Performed By: #### D FAGAN #### [facility] ([id number]) [address] [place] [address] 50898 OXYCODONE Negative Normal NEG [facility] Comment on above: Result Comment: Oxyc odone screening cut off value = 300 ng/mL NOTE: This test is used for the detection of oxycodone and oxymorphone in urine. Performed By: #### D FAGAN #### [facility] ([id number]) [address] [place] [address] 81384 PHENCYCLIDINE Negative Normal NEG [facility] Comment on above: Result Comment: Phen cyclidine screening cut off value = 25 ng/mL Performed By: #### D FAGAN #### [facility] ([id number]) [address] [place] [address] 68315 ETHANOLon 06-24-2024 Ethanol [Mass/Vol] mg/dL Normal 0.00-0.08 [facility] Comment on above: Result Comment: This report is intended for use in clinical monitoring or management of patients. Performed By: #### C BCA, CMP, 5643-2, 3298-7, 4024-6, THYR #### [facility] ([id number]) [address] [place] [address] [place] [address] Salicylates [Mass/Vol]on SALICYLATE <4.0 Normal 2.0-25.[address] [facility] Comment on above: Result Comment: Refe rence ranges are for therapeutic limits. Performed By: #### C CARRIE, CMP, 5643-2, 3298-7, 4024-6, THYR #### [facility] ([id number]) [address] [place] [address] [place] [address] THYROID PROFILEon 06-24-2024 Free T4 [Mass/Vol] 0.92 ng/dL Normal 0.61-1.60 [facility] Comment on above: Performed By: #### C CARRIE, CMP, 5643-2, 3298-7, 4024-6, THYR #### [facility] ([id number]) [address] [place] [address] [place] [address] TSH 4.19 uIU/mL Normal 0.49-4.[address] [facility] Comment on above: Performed By: #### C CARRIE, [facility], 5643-2, 3298-7, 4024-6, THYR #### [facility] ([id number]) [address] [place] [address], [place] [address] URN MACROSCOPIC NURon 2024 BILIRUBIN IRMA Negative Normal NEG [facility] Comment on above: Performed By: #### N UM #### [facility] ([id number]) [address] [place] [address], [place] [address] BLOOD/HGB IRMA Negative Normal NEG [facility] Comment on above: Performed By: #### N UM #### [facility] ([id number]) [address] [place] [address], [place] [address] GLUCOSE IRMA Negative Normal NEG [facility] Comment on above: Performed By: #### N UM #### [facility] ([id number]) [address] [place] [address] [place] [address] KETONES IRMA Negative Normal NEG [facility] Comment on above: Performed By: #### N UM #### [facility] ([id number]) [address] [place] [address] 61913 LEUKOCYTE ESTERASE IRMA Negative Normal NEG [facility] Comment on above: Performed By: #### N UM #### [facility] ([id number]) [address] [place] [address] 50399 NITRITE IRMA Negative Normal NEG [facility] Comment on above: Performed By: #### N UM #### [facility] ([id number]) [address] [place] [address] 50267 PH IRMA 7.5 Normal 5.0-8.[address] [facility] Comment on above: Performed By: #### N UM #### [facility] ([id number]) [address] [place] [address] 76841 PROTEIN IRMA Negative Normal NEG [facility] Comment on above: Performed By: #### N UM #### [facility] ([id number]) [address] [place] [address] 33667 SPECIFIC GRAVITY IRMA 1.015 Normal 1.003-1.035 [facility] Comment on above: Performed By: #### N UM #### [facility] ([id number]) [address] [place] [address] 40802 UROBILINOGEN IRMA 0.2 eu/dL Normal <1.1 [facility] Comment on above: Performed By: #### N UM #### [facility] ([id number]) [address] [place] [address] 43894 BMPon 06-21-2024 Anion gap [Moles/Vol] 11 mmol/L Normal 6-16 [facility] Comment on above: Performed By: #### 2 127475 #### [facility] [address] [place] [address] Calcium [Mass/Vol] 9.0 mg/dL Normal 8.9-11.[address] [facility] Comment on above: Performed By: #### 2 034696 #### [facility] [address] [place] [address] Chloride [Moles/Vol] 102 mmol/L Normal 101-111 [facility] Comment on above: Performed By: #### 2 [id number] #### [facility] [address] [place] [address] CO2 [Moles/Vol] 30 mmol/L Normal 21-31 [facility] Comment on above: Performed By: #### 2 527079 #### [facility] [address] [facility] [address] Creatinine [Mass/Vol] 0.9 mg/dL Normal 0.5-1.3 [facility] Comment on above: Performed By: #### 2 205890 #### [facility] [address] [place] [address] Glucose [Mass/Vol] 108 mg/dL Normal 55-[address] [facility] Comment on above: Performed By: #### 2 137589 #### [facility] [address] [facility] [place] [address] Potassium [Moles/Vol] 3.9 mmol/L Normal 3.5-5.3 [facility] Comment on above: Performed By: #### 2 430800 #### [facility] [address] [place] [address] Sodium [Moles/Vol] 139 mmol/L Normal 135-[address] [facility] Comment on above: Performed By: #### 2 680705 #### [facility] [address] [facility] [address] Urea nitrogen [Mass/Vol] 12 mg/dL Normal 5-[address] [facility] Comment on above: Performed By: #### 2 443008 #### [facility] [address] [place] [address] Urea nitrogen/Creatinine [Mass ratio] 13 No Units Normal 10-[address] [facility] Comment on above: Performed By: #### 2 121262 #### [facility] [address] [place] [address] CBC w/ Auto Diffon 5 Basophils/100 WBC (Bld) 0.6 % Normal 0.0-2.[address] [facility] Comment on above: Performed By: #### [id number] #### [facility] [address] [place] [address] Basophils/Leukocytes Auto (Bld) [Pure # fraction] 0.0 E9/L Normal 0.0-0.[address] [facility] Comment on above: Performed By: #### [id number] #### [facility] [address] [place] [id number] Eosinophils (Bld) [#/Vol] 0.0 E9/L Normal 0.0-0.[address] [facility] [address] [facility] Comment on above: Performed By: #### 2 [id number] #### [facility] [address] [place] [address] Eosinophils/100 WBC (Bld) 0.6 % Normal 0.0-8.[address] [facility] Comment on above: Performed By: #### 2 [id number] #### [facility] [address] [place] [address] Erythrocyte distribution width (RBC) [Ratio] 15.6 % High 10.9-14.[address] [facility] Comment on above: Performed By: #### 2 [id number] #### [facility] [address] [place] [address] Hematocrit (Bld) [Volume fraction] 45.0 % Normal 37.7-49.[address] [facility] Comment on above: Performed By: #### 2 [id number] #### [facility] [address] [place] [address] Hemoglobin (Bld) [Mass/Vol] 14.7 g/dL Normal 13.5-17.[address] [facility] Comment on above: Performed By: #### 2 [id number] #### [facility] [address] [place] [address] Hypochromia Auto Ql (Bld) PRESENT Invalid Interpretation Code [facility] Comment on above: Performed By: #### 2 [id number] #### [facility] [address] [place] [address] Lymphocytes (Bld) [#/Vol] 1.1 E9/L Normal 1.0-4.[address] [facility] Comment on above: Performed By: #### 2 [id number] #### [facility] [address] [place] [address] Lymphocytes/100 WBC (Bld) 23.5 % Normal 14.0-50.[address] [facility] Comment on above: Performed By: #### 2 [id number] #### [facility] [address] [place] [address] MCH (RBC) [Entitic mass] 24.7 pg Low 27.0-34.[address] [facility] Comment on above: Performed By: #### 2 [id number] #### [facility] [address] [place] [address] MCHC (RBC) [Mass/Vol] 32.7 g/dL Normal 31.4-36.0 [facility] Comment on above: Performed By: #### 2 [id number] #### [facility] [address] [place] [address] MCV (RBC) [Entitic vol] 75.5 fL Low 80.0-100.[address] [facility] Comment on above: Performed By: #### 2 [id number] #### [facility] [address] [place] [address] Monocytes (Bld) [#/Vol] 0.2 E9/L Normal 0.2-1.[address] [facility] Comment on above: Performed By: #### 2 [id number] #### [facility] [address] [place] [address] Neutrophils (Bld) [#/Vol] 3.3 E9/L Normal 2.0-7.[address] [facility] Comment on above: Performed By: #### 2 [id number] #### [facility] [address] [place] [address] Neutrophils/100 WBC (Bld) 70.5 % Normal 36.0-75.[address] [facility] Comment on above: Performed By: #### 2 [id number] #### [facility] [address] [place] [address] Platelet mean volume (Bld) [Entitic vol] 8.5 fL Normal 6.4-10.[address] [facility] Comment on above: Performed By: #### 2 [id number] #### [facility] [address] [place] [address] Platelets (Bld) [#/Vol] 167.0 E9/L Normal 150.0-500.[address] [facility] Comment on above: Performed By: #### 2 [id number] #### [facility] [address] [place] [address] RBC (Bld) [#/Vol] 6.0 E12/L High 4.3-5.[address] [facility] Comment on above: Performed By: #### 2 [id number] #### [facility] [address] [place] [address] RBC size Nom (Bld) SEE MORPHOLOGY Invalid Interpretation Code [facility] Comment on above: Performed By: #### 2 [id number] #### [facility] [address] [place] [address] WBC corrected for nucl RBC Auto (Bld) [#/Vol] 4.6 E9/L Normal 4.0-11.[address] [facility] Comment on above: Performed By: #### 2 [id number] #### [facility] [address] [place] [address] CHEMISTRYOrdered By: SYSTEM SYSTEM on 06-21-2024 Anion [...] 30.4 s Normal 25.1 - 36.5 second(s) [facility] Comment on above: Interpretive Data: [...] the same coagulation reagent and instrumentation as [facility]. Currently there are no coagulation studies available worldwide for children to 14 days, and no normal ranges. Heparin therapeutic range (represented by Anti-Factor Xa activity of 0.2 - 0.4 U/mL) corresponds to PTT of 56.6 - 109.0 sec. INR Coag (PPP) [Relative time] 1.02 {INR} Invalid Interpretation Code [facility] Comment on above: Interpretive Data: I NR results are specifically intended to assess patients stabilized on long-term Anticoagulation therapy suggested INR s Less Intensive Anticoagulation 2.0 3.0 Conventional Range 3.0 4.5 PT Coag (PPP) [Time] 11.4 s Normal 9.4 - 1 2.5 second(s) [facility] Comment on above: Interpretive Data: [...] the same coagulation reagent and instrumentation as [facility]. Currently there are no coagulation studies available [...] [Time] 30.4 second(s) Normal 25.1-36.[address] [facility] Comment on above: Result Comment: Para meter 15 days - 4 weeks 1 - 5 months 6 - 11 months 1 - 5 years 6 - 10 years 11 - 17 years PTT Mean: 35.4 (27.6-45.6) Mean: 33.5 (24.8-40.7) Mean: 32.4 (25.1-40.7) Mean: 31.6 (24.0-39.2) Mean: 31.6 (26.9-38.7) Mean: 31.0 (24.6-38.4) Pediatric Reference ranges were obtained from a study by davion Rosenthal prepared from 1437 samples obtained at 7 different centers using the same coagulation reagent and instrumentation as [facility]. Currently there are no coagulation studies available worldwide for children to 14 days, and no normal ranges. Heparin therapeutic range (represented by Anti-Factor Xa activity of 0.2 - 0.4 U/mL) corresponds to PTT of 56.6 - 109.0 sec. Performed By: #### 1 [id number] #### [facility] [address] [place] [address] INR Coag (PPP) [Relative time] 1.02 {INR} Invalid Interpretation Code [facility] Comment on above: Result Comment: INR results are specifically intended to assess patients stabilized on long-term Anticoagulation therapy suggested INR???s ???Less Intensive Anticoagulation??? 2.0 ??? 3.0 Conventional Range 3.0 ??? 4.5 Performed By: #### 1 [id number] #### [facility] [address] [place] [address] PT Coag (PPP) [Time] 11.4 second(s) Normal 9.4-12.[address] [facility] Comment on above: Result Comment: 15 [...] ranges were obtained from a study by davion Rosenthal prepared from 1437 samples obtained at 7 different centers using the same coagulation reagent and instrumentation as [facility]. Currently there are no coagulation studies available worldwide for children to 14 days, and no normal ranges. Performed By: #### 1 [id number] #### [facility] [address] [place] [address] UA with Cult Rflxon 06-21-19 25 Bilirubin Ql (U) Negative Normal Negative [facility] Comment on above: Performed By: #### 4 [id number] #### [facility] [address] [place] [address] Clarity (U) Clear Normal Clear [facility] Comment on above: Performed By: #### 4 [id number] #### [facility] [address] [place] [address] Color (U) Colorless Abnormal Yellow [facility] Comment on above: Result Comment: Micr oscopic readings are only performed on those samples that meet specific criteria set forth by [facility]. Performed By: #### 4 [id number] #### [facility] [address] [place] [address] Glucose Ql (U) Negative Normal Negative [facility] Comment on above: Performed By: #### 4 [id number] #### [facility] [address] [place] [address] Hemoglobin Auto test strip (U) [Mass/Vol] Negative Normal Negative [facility] Comment on above: Performed By: #### 4 [id number] #### [facility] [address] [place] [address] Ketones Auto test strip Ql (U) Negative Normal Negative [facility] Comment on above: Performed By: #### 4 [id number] #### [facility] [address] [place] [address] Leukocyte esterase Auto test strip Ql (U) Negative Normal Negative [facility] Comment on above: Performed By: #### 4 [id number] #### [facility] [address] [place] [address] Nitrite Auto test strip Ql (U) Negative Normal Negative [facility] Comment on above: Performed By: #### 4 [id number] #### [facility] [address] [place] [address] pH (U) 7.0 [pH] Invalid Interpretation Code 5.0-9.[address] [facility] Comment on above: Performed By: #### 4 [id number] #### [facility] [address] [place] [address] Protein Ql (U) Negative Normal Negative [facility] Comment on above: Performed By: #### 4 [id number] #### [facility] [address] [place] [address] Specific gravity (U) [Rel density] 1.005 Invalid Interpretation Code 1.005-1.[address] [facility] Comment on above: Performed By: #### 4 [id number] #### [facility] [address] [place] [address] Urobilinogen (U) [Mass/Vol] Negative Normal Negative [facility] Comment on above: Performed By: #### 4 [id number] #### [facility] [address] [place] [address] Type of Urine collection method Clean Catch Normal [facility] Comment on above: Performed By: #### 4 [id number] #### [facility] [address] [place] [address] URINALYSISOrdered By: SYSTEM SYSTEM on 06-21-2024 Bilirubin Ql (U) Negative Normal Negativemg/ dL [facility] UA Auto SS Clarity (U) Clear (06/21/24 11:04 AM) Normal Clear [facility] UA Auto SS Color (U) Colorless 1 *ABN* (06/21/24 11:04 AM) Invalid Interpretation Code Yellow [facility] Comment on above: Interpretive Data: M icroscopic readings are only performed on those samples that meet specific criteria set forth by [facility]. Glucose Ql (U) Negative Normal Negativemg/ dL FT UA Auto SS Hemoglobin Auto test strip (U) [Mass/Vol] Negative Normal Negativemg/ dL FT UA Auto SS Ketones Auto test strip Ql (U) Negative Normal Negativemg/ dL [facility] UA Auto SS Leukocyte esterase Auto test strip Ql (U) Negative Normal NegativeLeu /uL FT UA Auto SS Nitrite Auto test strip Ql (U) Negative Normal Negativemg/ dL FT UA Auto SS pH (U) 7.0 *NA* (06/21/24 11:04 AM) Invalid Interpretation Code 5.0 - 9.0 FT UA Auto SS Protein Ql (U) Negative Normal Negativemg/ dL [facility] UA Auto SS Specific gravity (U) [Rel density] 1.005 *NA* (06/21/24 11:04 AM) Invalid Interpretation Code 1.005 - 1.030 FT UA Auto SS Urobilinogen (U) [Mass/Vol] Negative Normal Negativemg/ dL [facility]A Auto SS URINALYSISOrdered By: Peter Larios on 06-21-2024 UA Spec Desc Clean Catch (06/21/24 11:04 AM) Normal [facility] UA Auto SS XR Chest 2 Viewson XR Chest 2 Views Exam Date/Time: 06/21/2024 11:00 EST Reason for Exam: P.A.T. Report IMPRESSION: NO EVIDENCE OF ACTIVE CHEST DISEASE. CLINICAL HISTORY: P.A.T.. COMMENT: The heart is normal in size. The mediastinum is unremarkable. The lungs appear clear. No infiltration nor pleural effusion is evident. Ordering Provider: Lex Draper FINAL REPORT Dictated: 06/21/2024 11:44 am Maribell Moran M.D. Signed (Electronic Signature): 06/21/2024 11:44 am Signed by: Maribell Moran M.D. Transcribed by: MOLLY Technologist: ASHLEIGH Technical Comments Radiation Dose: Ka,r in mGy = na DAP = na Normal [facility] eGFRon 06-21-2024 eGFR 98 mL/min/1.73 m2 Normal >=[address] [facility] Comment on above: Performed By: #### 1 [id number] #### [facility] [address] [place] [address] Provider Letteron 04-18-2024 Provider Letter Provider Letter April 18, 2024 ESTELLA JEFFERY [address] [place] [id number] : 1965 Dear, I am corresponding with [...] Sincerely, Dr. Danni Graham [facility] [address] [facility] [address] [place] [id number] Normal [facility] ISTAT XRay CREon 03-15-2024 ISTAT GFR > 60.0 Normal [facility] Comment on above: Result Comment: PERF ORMED BY: [place] [address] PATHOLOGIST STRAIN TECHNICIAN NALDO SALDIVAR M.D. Performed By: #### I SCRE #### [address] MR prostate wo/w conon 03-15 MR prostate wo/w con [facility] [place] [address] [place] [address] MRI Report Signed Patient: sEtella Jeffery MR#: [id number] : 1965 Acct:[id number] Age/Sex: 58 / M ADM Date: 03/15/24 Loc: Room: Type: [facility] Attending Dr: Danni Graham MD Copies to: [...] recommended. Impression dictated by: Esdras Anne Jr., DChongOChong03/15/2024 3:05 PM Dictation Location: [place] [address] Transcribed By: [facility] 03/15/24 1505 Dictated By: Esdras Anne Jr, DO 03/15/24 1501 Signed By: 03/15/24 1505 Normal [facility] No Panel InformationOrdered By: Danni Graham on 03-15-2024 Bedside Estimated GFR (eGFR) > 60.0 [facility] Whole blood creatinine measu rementOrdered By: Danni Graham on 03-15-2024 Creatinine [Mass/Vol] 1.0 mg/dL Normal 0.6-1.3 [facility] Comment on above: ER/ESD physician is notified/shown all ISTAT results.Critical values may be confirmed by laboratory testing ifdeemed necessary by ER attending doctor. Result Comment: ER/E SD physician is notified/shown all ISTAT results. Critical values may be confirmed by laboratory testing if deemed necessary by ER attending doctor. Performed By: #### I SCRE #### [facility] [address] [place] [address] RITO by IFAon 10-25-2022 Antinuclear Antibodies, IFA Negative Normal [facility] Comment on above: Result Comment: Nega tive <1:80 Borderline 1:80 Positive >1:80 ICAP nomenclature: AC-0 For more information about Hep-2 cell patterns use ANApatterns.org, the official website for the International Consensus on Antinuclear Antibody (RITO) Patterns (ICAP). Performed By: #### T 7, TSH, CMP, LISANDRA, LIPA, LIPID #### [facility] [address] [place] [address] Dr. Janell Marquez ANTISTREPTOLYSIN O AB (ASO)o n 10-22-2022 Antistreptolysin O Ab 45.9 IU/mL Normal 0.0-200.0 [facility] Comment on above: Performed By: #### A SOAB #### [facility] [address] [place] [address] Dr. Janell Marquez RHEUMATOID FACTORon 10-23-19 RA Latex Turbid. <10.0 Normal <14.0 [facility] Comment on above: Performed By: #### R F #### [facility] [address] [place] [address] Dr. Janell Marquez CBC AUTO DIFFon 10-21-2022 BASO # 0.0 103/ul Normal 0.0-0.1 [facility] Comment on above: Performed By: #### T 7, TSH, CMP, LISANDRA, LIPA, LIPID #### [facility] [address] [place] [address] Dr. Janell Marquez Basophils/100 WBC (Bld) 0.4 % Normal 0.2-2.0 [facility] Comment on above: Performed By: #### T 7, TSH, CMP, LISANDRA, LIPA, LIPID #### [facility] [address] [place] [address] Dr. Janell Marquez EO # 0.0 103/ul Normal 0.0-0.7 [facility] Comment on above: Performed By: #### T 7, TSH, CMP, LISANDRA, LIPA, LIPID #### [facility] [address] [place] [address] Dr. Janell Marquez Eosinophils/100 WBC (Bld) 0.7 % Critically low 0.9-7.0 [facility] Comment on above: Performed By: #### T 7, TSH, CMP, LISANDRA, LIPA, LIPID #### [facility] [address] [place] [address] Dr. Janell Marquez Erythrocyte distribution width (RBC) [Ratio] 16.1 % Critically high 11.0-15.0 [facility] Comment on above: Performed By: #### T 7, TSH, CMP, LISANDRA, LIPA, LIPID #### [facility] [address] [place] [address] Dr. Janell Marquez Hematocrit (Bld) [Volume fraction] 48.8 % Normal 42.0-54.0 [facility] Comment on above: Performed By: #### T 7, TSH, CMP, LISANDRA, LIPA, LIPID #### [facility] [address] [place] [address] Dr. Janell Marquez Hemoglobin (Bld) [Mass/Vol] 15.3 g/dL Normal 14.0-18.0 [facility] Comment on above: Performed By: #### T 7, TSH, CMP, LISANDRA, LIPA, LIPID #### [facility] [address] [place] [address] Dr. Janell Marquez IG # 0.02 10e3/ul Normal 0.00-0.03 [facility] Comment on above: Performed By: #### T 7, TSH, CMP, LISANDRA, LIPA, LIPID #### [facility] [address] [place] [address] Dr. Janell Marquez IG % 0.4 % Normal 0.0-0.5 [facility] Comment on above: Performed By: #### T 7, TSH, CMP, LISANDRA, LIPA, LIPID #### [facility] [address] [place] [address] Dr. Janell Marquez LYMPH # 1.3 103/ul Normal 1.2-3.8 [facility] Comment on above: Performed By: #### T 7, TSH, CMP, LISANDRA, LIPA, LIPID #### [facility] [address] [place] [address] Dr. Janell Marquez Lymphocytes/100 WBC (Bld) 29.0 % Normal 20.5-60.0 [facility] Comment on above: Performed By: #### T 7, TSH, CMP, LISANDRA, LIPA, LIPID #### [facility] [address] [place] [address] Dr. Janell Marquez MANUAL DIFF REQ NO Normal [facility] Comment on above: Performed By: #### T 7, TSH, CMP, LISANDRA, LIPA, LIPID #### [facility] [address] [place] [address] Dr. Janell Marquez MCH (RBC) [Entitic mass] 23.5 pg Critically low 25.9-34.0 [facility] Comment on above: Performed By: #### T 7, TSH, CMP, LISANDRA, LIPA, LIPID #### [facility] [address] [place] [address] Dr. Janell Marquez MCHC (RBC) [Mass/Vol] 31.4 g/dL Normal 29.9-35.2 [facility] Comment on above: Performed By: #### T 7, TSH, CMP, LISANDRA, LIPA, LIPID #### [facility] [address] [place] [address] Dr. Janell Marquez MCV (RBC) [Entitic vol] 74.8 fL Critically low 80.0-94.0 [facility] Comment on above: Performed By: #### T 7, TSH, CMP, LISANDRA, LIPA, LIPID #### [facility] [address] [place] [address] Dr. Janell Marquez MONO # 0.3 103/ul Normal 0.3-0.8 [facility] Comment on above: Performed By: #### T 7, TSH, CMP, LISANDRA, LIPA, LIPID #### [facility] [address] [place] [address] Dr. Janell Marquez Monocytes/100 WBC (Bld) 7.4 % Normal 1.7-12.0 [facility] Comment on above: Performed By: #### T 7, TSH, CMP, LISANDRA, LIPA, LIPID #### [facility] [address] [place] [address] Dr. Janell Marquez NEUT # 2.9 103/ul Normal 1.4-6.5 [facility] Comment on above: Performed By: #### T 7, TSH, CMP, LISANDRA, LIPA, LIPID #### [facility] [address] [address] [address] Janell Marquez Neutrophils/100 WBC (Bld) 62.1 % Normal 43.0-75.0 [facility] Comment on above: Performed By: #### T 7, TSH, CMP, LISANDRA, LIPA, LIPID #### [facility] [address] [place] [address] Dr. Janell Marquez Platelet mean volume (Bld) [Entitic vol] 9.3 fL Critically low 9.5-13.5 [facility] Comment on above: Performed By: #### T 7, TSH, CMP, LISANDRA, LIPA, LIPID #### [facility] [address] [place] [address] Dr. Janell Marquez PLT 203 103/ul Normal 150-450 [facility] Comment on above: Performed By: #### T 7, TSH, CMP, LISANDRA, LIPA, LIPID #### [facility] [address] [place] [address] Dr. Janell Marquez RBC 6.52 106/ul Critically high 4.70-6.10 [facility] Comment on above: Performed By: #### T 7, TSH, CMP, LISANDRA, LIPA, LIPID #### [facility] [address] [place] [address] Dr. Janell Marquez WBC 4.6 103/ul Normal 4.0-11.0 [facility] Comment on above: Performed By: #### T 7, TSH, CMP, LISANDRA, LIPA, LIPID #### [facility] [address] [place] [address] Dr. Janell Marquez CRPon 10-21-2022 CRP [Mass/Vol] mg/L Normal <=1.0 [facility] Comment on above: Performed By: #### T 7, TSH, CMP, LISANDRA, LIPA, LIPID #### [facility] [address] [place] [address] Dr. Janell Marquez SED RATE WESTERGRENon 2022 SED RATE 30 mm/hr Critically high <=20 [facility] Comment on above: Performed By: #### T 7, TSH, CMP, LISANDRA, LIPA, LIPID #### [facility] [address] [place] [address] [address] Janell Marquez URIC ACID SERUMon 10-21-2022 Urate [Mass/Vol] 4.3 mg/dL Normal 3.5-7.2 [facility] Comment on above: Performed By: #### T 7, TSH, CMP, LISANDRA, LIPA, LIPID #### [facility] [address] [place] [address] [address] Janell Marquez CSF MANUAL DIFFon 10-12-2022 Diff Total, CSF 57 cells counted [facility] Lymph%, CSF 91 % High 50 - 90 % [place] [facility] [place]%, CSF 9 % Low 10 - 50 % [facility] ic Cell count panel (CSF)on Clarity (CSF) Clear Clear [facility] [facility] Clarity (Unsp spec) Not Indicated Clear [facility] Color (CSF) Colorless Colorless [place] [facility] Color (Spun CSF) Not Indicated Colorless [facility] CSF Tube Number Tube 1 [facility] RBC Manual cnt (CSF) [#/Vol] 3 cells/uL 0 - 5 cells/uL [facility] WBC Manual cnt (CSF) [#/Vol] 1 cells/uL 0 - 5 cells/uL [facility] GLUCOSE CSFon 10-12-2022 Glucose (CSF) [Mass/Vol] 57 mg/dL 40 - 70 mg/dL [facility] PROTEIN CSFon 10-12-2022 Protein (CSF) [Mass/Vol] 32 mg/dL 15 - 45 mg/dL [facility] [place] BLOODon 10-12- 023 [place] [facility] ALLIED HEALTHon 05-07-2022 ALLIED HEALTH HNO ID: [id number] Author: Nicole Girard, complex case manager Service: Radiology Author Type: Computer Aided Design Designer Type: Allied Health Filed: 05/07/2022 1:54 PM Note Text: Radiology Service Progress Note PATIENT NAME: Estella Jeffery DATE OF SERVICE: May 07, 2022 [...] DATA: Not applicable SIGNED BY: Nicole Huffman, complex case manager May 07, 2022 1:31 PM [facility] MRI 3D POST PROCESSINGon MRI 3D POST PROCESSING * * *Final Report* * * DATE OF EXAM: May 07 2022 1:47PM [facility] 0280 - MRI 3D POST PROCESSING / PROCEDURE REASON: Cognitive changes * * * * Physician Interpretation * * * * EXAMINATION: MRI BRAIN WO IVCON, MRI 3D POST PROCESSING CLINICAL HISTORY: Cognitive changes TECHNIQUE: Axial FLORIDALMA FLAIR, FLORIDALMA T2, diffusion and susceptibility weighted imaging without contrast, using the ADNI dementia protocol and 3-D post-processing using the Well software at an independent workstation with concurrent [...] = Focal Lesions 2 = Beginning of Schwertner 3 = Diffuse Involvement of Entire Region [...] results from the analysis charts for details. [employer] Manager: MARISELA Transcribe Date/Time: May 07 2022 2:51P Dictated by : MANISH PRICE MD This examination was interpreted and the report reviewed and electronically signed by: MANISH PRICE MD on May 07 2022 3:06PM EST [id number] CN Normal [facility] MRI BRAIN WO IVCONon 05-07- 022 MRI BRAIN WO IVCON * * *Final Report* * * DATE OF EXAM: May 07 2022 1:47PM [facility] 0294 - MRI BRAIN WO IVCON / PROCEDURE REASON: Cognitive changes * * * * Physician Interpretation * * * * EXAMINATION: MRI BRAIN WO IVCON, MRI 3D POST PROCESSING CLINICAL HISTORY: Cognitive changes TECHNIQUE: Axial FLORIDALMA FLAIR, FLORIDALMA T2, diffusion and susceptibility weighted imaging without contrast, using the ADNI dementia protocol and 3-D post-processing using the Well software at an independent workstation with concurrent [...] = Focal Lesions 2 = Beginning of Schwertner 3 = Diffuse Involvement of Entire Region [...] results from the analysis charts for details. [employer] Manager: PSCB Transcribe Date/Time: May 07 2022 2:51P Dictated by : MANISH PRICE MD This examination was interpreted and the report reviewed and electronically signed by: MANISH PRICE MD on May 07 2022 3:06PM EST [id number] CN Normal [facility] No Panel Informationon 05-07 [facility] MRI BRAIN WO W CONon [...] by: LUCIE TOWNSEND Date: 2022-01-21 17:28 Normal [facility] US CAROTID ART BILon 022 [...] LUCIE TOWNSEND Date: 2022-01-21 17:18 Normal [facility] H PYLORI ANTIBODY IGGon 12-19 H. PYLORI IGG ABS 0.72 Index Value Normal 0.00-0.79 [facility] Comment on above: Result Comment: Nega tive <0.80 Equivocal 0.80 - 0.89 Positive >0.89 Performed By: #### H PYLLC #### [facility] [address] [place] [address] Dr. Janell Marquez INSULINon 01-13-2022 Insulin 15.8 uIU/mL Normal 2.6-24.9 [facility] Comment on above: Performed By: #### T 7, TSH, CMP, LISANDRA, LIPA, LIPID #### [facility] [address] [address] [address] Janell Marquez VIT D 25-OH LABCORPon 2021 Vitamin D, 25-Hydroxy 29.7 ng/mL Critically low 30.0-100.0 [facility] Comment on above: Result Comment: Nelsy min D deficiency has been defined by the [place] and an Endocrine Society practice guideline as a level of serum 25-OH vitamin D less than 20 ng/mL (1,2). The Endocrine Society went on to further define vitamin D insufficiency as a level between 21 and 29 ng/mL (2). 1. IOM ([place] [employer]). 2010. Dietary reference intakes for calcium and D. [place]: The National Academies Press. 2. Kevin MF, Mey [place], Bharat SPENCER, et al. Evaluation, treatment, and prevention of vitamin D deficiency: an Endocrine Society clinical practice guideline. JCEM. 2010; 96(7):1911-30. Performed By: #### T 7, TSH, CMP, LISANDRA, LIPA, LIPID #### [facility] [address] [address] [address] Janell Marquez AMMONIAon 01-12-2022 Ammonia (P) [Mass/Vol] ug/dL Critically low 11-32 [facility] Comment on above: Performed By: #### T 7, TSH, CMP, LISANDRA, LIPA, LIPID #### [facility] [address] [address] [address] Janell Marquez AMYLASEon 01-12-2022 Amylase [Catalytic activity/Vol] 49 U/L Normal 25-115 [facility] Comment on above: Performed By: #### T 7, TSH, CMP, LISANDRA, LIPA, LIPID #### [facility] [address] [address] [address] Janell Marquez CBC AUTO DIFFon 01-12-2022 BASO # 0.0 103/ul Normal 0.0-0.1 [facility] Comment on above: Performed By: #### T 7, TSH, CMP, LISANDRA, LIPA, LIPID #### [facility] [address] [place] [address] Dr. Janell Marquez Basophils/100 WBC (Bld) 0.2 % Normal 0.2-2.0 [facility] Comment on above: Performed By: #### T 7, TSH, CMP, LISANDRA, LIPA, LIPID #### [facility] [address] [place] [address] Dr. Janell Marquez EO # 0.0 103/ul Normal 0.0-0.7 [facility] Comment on above: Performed By: #### T 7, TSH, CMP, LISANDRA, LIPA, LIPID #### [facility] [address] [place] [address] Dr. Janell Marquez Eosinophils/100 WBC (Bld) 0.3 % Critically low 0.9-7.0 [facility] Comment on above: Performed By: #### T 7, TSH, CMP, LISANDRA, LIPA, LIPID #### [facility] [address] [place] [address] Dr. Janell Marquez Erythrocyte distribution width (RBC) [Ratio] 16.0 % Critically high 11.0-15.0 [facility] Comment on above: Performed By: #### T 7, TSH, CMP, LISANDRA, LIPA, LIPID #### [facility] [address] [place] [address] Dr. Janell Marquez Hematocrit (Bld) [Volume fraction] 46.8 % Normal 42.0-54.0 [facility] Comment on above: Performed By: #### T 7, TSH, CMP, LISANDRA, LIPA, LIPID #### [facility] [address] [place] [address] Dr. Janell Marquez Hemoglobin (Bld) [Mass/Vol] 14.9 g/dL Normal 14.0-18.0 [facility] Comment on above: Performed By: #### T 7, TSH, CMP, LISANDRA, LIPA, LIPID #### [facility] [address] [place] [address] Dr. Janell Marquez IG # 0.01 10e3/ul Normal 0.00-0.03 [facility] Comment on above: Performed By: #### T 7, TSH, CMP, LISANDRA, LIPA, LIPID #### [facility] [address] [place] [address] Dr. Janell Marquez IG % 0.2 % Normal 0.0-0.5 [facility] Comment on above: Performed By: #### T 7, TSH, CMP, LISANDRA, LIPA, LIPID #### [facility] [address] [place] [address] Dr. Janell Marquez LYMPH # 1.0 103/ul Critically low 1.2-3.8 The [facility] Comment on above: Performed By: #### T 7, TSH, CMP, ILSANDRA, LIPA, LIPID #### [facility] [address] [place] [address] Dr. Janell Marquez Lymphocytes/100 WBC (Bld) 16.2 % Critically low 20.5-60.0 [facility] Comment on above: Performed By: #### T 7, TSH, CMP, LISANDRA, LIPA, LIPID #### [facility] [address] [place] [address] Dr. Janell Marquez MANUAL DIFF REQ NO Normal [facility] Comment on above: Performed By: #### T 7, TSH, CMP, LISANDRA, LIPA, LIPID #### [facility] [address] [place] [address] Dr. Janell Marquez MCH (RBC) [Entitic mass] 23.9 pg Critically low 25.9-34.0 [facility] Comment on above: Performed By: #### T 7, TSH, CMP, LISANDRA, LIPA, LIPID #### [facility] [address] [place] [address] Dr. Janell Marquez MCHC (RBC) [Mass/Vol] 31.8 g/dL Normal 29.9-35.2 [facility] Comment on above: Performed By: #### T 7, TSH, CMP, LISANDRA, LIPA, LIPID #### [facility] [address] [place] [address] Dr. Janell Marquez MCV (RBC) [Entitic vol] 75.0 fL Critically low 80.0-94.0 [facility] Comment on above: Performed By: #### T 7, TSH, CMP, LISANDRA, LIPA, LIPID #### [facility] [address] [place] [address] Dr. Janell Marquez MONO # 0.4 103/ul Normal 0.3-0.8 [facility] Comment on above: Performed By: #### T 7, TSH, CMP, LISANDRA, LIPA, LIPID #### [facility] [address] [place] [address] Dr. Janell Marquez Monocytes/100 WBC (Bld) 6.0 % Normal 1.7-12.0 [facility] Comment on above: Performed By: #### T 7, TSH, CMP, LISANDRA, LIPA, LIPID #### [facility] [address] [place] [address] Dr. Janell Marquez NEUT # 4.5 103/ul Normal 1.4-6.5 [facility] Comment on above: Performed By: #### T 7, TSH, CMP, LISANDRA, LIPA, LIPID #### [facility] [address] [place] [address] Dr. Janell Marquez Neutrophils/100 WBC (Bld) 77.1 % Critically high 43.0-75.0 [facility] Comment on above: Performed By: #### T 7, TSH, CMP, LISANDRA, LIPA, LIPID #### [facility] [address] [place] [address] Dr. Janell Marquez Platelet mean volume (Bld) [Entitic vol] 9.3 fL Critically low 9.5-13.5 [facility] Comment on above: Performed By: #### T 7, TSH, CMP, LISANDRA, LIPA, LIPID #### [facility] [address] [place] [address] Dr. Janell Marquez PLT 202 103/ul Normal 150-450 [facility] Comment on above: Performed By: #### T 7, TSH, CMP, LISANDRA, LIPA, LIPID #### [facility] [address] [place] [address] Dr. Janell Marquez RBC 6.24 106/ul Critically high 4.70-6.10 The [facility] Comment on above: Performed By: #### T 7, TSH, CMP, LISANDRA, LIPA, LIPID #### [facility] [address] [address] [address] Janell Marquez WBC 5.9 103/ul Normal 4.0-11.0 [facility] Comment on above: Performed By: #### T 7, TSH, CMP, LISANDRA, LIPA, LIPID #### [facility] [address] [address] [address] Janell Marquez FREE THYROXINE INDEX T7on FTI 3.14 Normal 1.30-4.50 [facility] Comment on above: Performed By: #### T 7, TSH, CMP, LISANDRA, LIPA, LIPID #### [facility] [address] [place] [address] Dr. Janell Marquez T3U 32.0 % Critically low 33.0-40.0 The [facility] Comment on above: Performed By: #### T 7, TSH, CMP, LISANDRA, LIPA, LIPID #### [facility] [address] [place] [address] Dr. Janell Marquez T4 [Mass/Vol] 9.80 ug/dL Normal 4.50-12.10 The [facility] Comment on above: Performed By: #### T 7, TSH, CMP, LISANDRA, LIPA, LIPID #### [facility] [address] [place] [address] Dr. Janell Marquez GLYCOHEMOGLOBIN A1Con 2021 ADA RECOMMENDATION SEE BELOW Normal The [facility] Comment on above: Result Comment: ADA RECOMMENDED LIMIT 4.0 - 6.0 ADA THERAPEUTIC TARGET < 7.0 ACTION SUGGESTED > 7.0 Performed By: #### A 1C #### [facility] [address] [place] [address] Dr. Janell Marquez Glucose [Mass/Vol] 120 mg/dL Normal [facility] Comment on above: Performed By: #### A 1C #### [facility] [address] [place] [address] Dr. Janell Marquez HbA1c (Bld) [Mass fraction] 5.8 % Normal 4.5-6.2 [facility] Comment on above: Performed By: #### A 1C #### [facility] [address] [place] [address] Dr. Janell Marquez IRONon 01-12-2022 Iron [Mass/Vol] 70.0 ug/dL Normal 65.0-175.0 [facility] Comment on above: Performed By: #### T 7, TSH, CMP, LISANDRA, LIPA, LIPID #### [facility] [address] [place] [address] Dr. Janell Marquez LIPASEon 01-12-2022 Lipase [Catalytic activity/Vol] 72.0 U/L Critically low 73.0-393.0 [facility] Comment on above: Performed By: #### T 7, TSH, CMP, LISANDRA, LIPA, LIPID #### [facility] [address] [place] [address] Dr. Janell Marquez LIPID PROFILEon 01-12-2022 CHOL-HDL RATIO NORM SEE BELOW Normal [facility] Comment on above: Result Comment: 3.3 - 4.4 LOW RISK 4.4 - 7.1 AVERAGE RISK 7.1 - 11.0 MODERATE RISK >11.0 HIGH RISK Performed By: #### T 7, TSH, CMP, LISANDRA, LIPA, LIPID #### [facility] [address] [place] [address] Dr. Janell Marquez Cholesterol [Mass/Vol] 220 mg/dL Critically high <=200 [facility] Comment on above: Performed By: #### T 7, TSH, CMP, LISANDRA, LIPA, LIPID #### [facility] [address] [place] [address] Dr. Janell Marquez Cholesterol in HDL [Mass/Vol] 47 mg/dL Normal 40-60 [facility] Comment on above: Performed By: #### T 7, TSH, CMP, LISANDRA, LIPA, LIPID #### [facility] [address] [place] [address] Dr. Janell Marquez Cholesterol in LDL [Mass/Vol] 157.4 mg/dL Normal [facility] Comment on above: Performed By: #### T 7, TSH, CMP, LISANDRA, LIPA, LIPID #### [facility] [address] [address] [address] Janell Marquez Cholesterol.total/Cho lesterol in HDL [Mass ratio] 4.7 {ratio} Normal [facility] Comment on above: Performed By: #### T 7, TSH, CMP, LISANDRA, LIPA, LIPID #### [facility] [address] [address] [address] Janell Marquez HDL NORMAL > or = 60 mg/dl - LOW CARDIOVASCULAR RISK <40 mg/dl - HIGH CARDIOVASCULAR RISK Normal [facility] Comment on above: Performed By: #### T 7, TSH, CMP, LISANDRA, LIPA, LIPID #### [facility] [address] [place] [address] Dr. Janell Marquez LDL CALC NORMAL SEE BELOW Normal The [facility] Comment on above: Result Comment: <100 mg/dl OPTIMAL 100 - 129 mg/dl NEAR OR ABOVE OPTIMAL 130 - 159 mg/dl BORDERLINE HIGH 160 - 189 mg/dl HIGH >190 mg/dl VERY HIGH Performed By: #### T 7, TSH, CMP, LISANDRA, LIPA, LIPID #### [facility] [address] [place] [address] Dr. Janell Marquez Triglyceride [Mass/Vol] 78 mg/dL Normal <=150 [facility] Comment on above: Performed By: #### T 7, TSH, CMP, LISANDRA, LIPA, LIPID #### [facility] [address] [place] [address] Dr. Janell Marquez VLDL CALC 15.6 mg/dL Normal [facility] Comment on above: Performed By: #### T 7, TSH, CMP, LISANDRA, LIPA, LIPID #### [facility] [address] [address] [address] Janell Marquez PROF 14(COMP METB)on 022 Albumin [Mass/Vol] 3.5 g/dL Normal 3.4-5.0 [facility] Comment on above: Performed By: #### T 7, TSH, CMP, LISANDRA, LIPA, LIPID #### [facility] [address] [place] [address] Dr. Janell Marquez Albumin/Globulin [Mass ratio] 0.9 {ratio} Normal [facility] Comment on above: Performed By: #### T 7, TSH, CMP, LISANDRA, LIPA, LIPID #### [facility] [address] [place] [address] Dr. Janell Marquez ALP [Catalytic activity/Vol] 69 U/L Normal 46-116 [facility] Comment on above: Performed By: #### T 7, TSH, CMP, LISANDRA, LIPA, LIPID #### [facility] [address] [place] [address] Dr. Janell Marquez ALT [Catalytic activity/Vol] 19 U/L Normal 16-63 [facility] Comment on above: Performed By: #### T 7, TSH, CMP, LISANDRA, LIPA, LIPID #### [facility] [address] [place] [address] Dr. Janell Marquez Anion gap [Moles/Vol] 12.1 mmol/L Normal [facility] Comment on above: Performed By: #### T 7, TSH, CMP, LISANDRA, LIPA, LIPID #### [facility] [address] [place] [address] Dr. Janell Marquez AST [Catalytic activity/Vol] 15 U/L Normal 15-37 [facility] Comment on above: Performed By: #### T 7, TSH, CMP, LISANDRA, LIPA, LIPID #### [facility] [address] [place] [address] Dr. Janell Marquez Bilirubin [Mass/Vol] 0.8 mg/dL Normal 0.2-1.0 [facility] Comment on above: Performed By: #### T 7, TSH, CMP, LISANDRA, LIPA, LIPID #### [facility] [address] [place] [address] Dr. Janell Marquez Calcium [Mass/Vol] 8.5 mg/dL Normal 8.5-10.1 [facility] Comment on above: Performed By: #### T 7, TSH, CMP, LISANDRA, LIPA, LIPID #### [facility] [address] [address] [address] Janell Marquez Chloride [Moles/Vol] 105 mmol/L Normal 98-107 [facility] Comment on above: Performed By: #### T 7, TSH, CMP, LISANDRA, LIPA, LIPID #### [facility] [address] [place] [address] Dr. Janell Marquez CO2 [Moles/Vol] 28.0 mmol/L Normal 21.0-32.0 [facility] Comment on above: Performed By: #### T 7, TSH, CMP, LISANDRA, LIPA, LIPID #### [facility] [address] [place] [address] Dr. Janell Marquez Creatinine [Mass/Vol] 1.11 mg/dL Normal 0.70-1.30 [facility] Comment on above: Performed By: #### T 7, TSH, CMP, LISANDRA, LIPA, LIPID #### [facility] [address] [place] [address] Dr. Janell Marquez EGFR-AF NEW ZEALANDER >60 Normal >=60 [facility] Comment on above: Performed By: #### T 7, TSH, CMP, LISANDRA, LIPA, LIPID #### [facility] [address] [place] [address] Dr. Janell Marquez EGFR-NON AF [place]ALANDER >60 Normal >=60 [facility] Comment on above: Performed By: #### T 7, TSH, CMP, LISANDRA, LIPA, LIPID #### [facility] [address] [place] [address] Dr. Janell Marquez Globulin (S) [Mass/Vol] 3.7 g/dL Normal [facility] Comment on above: Performed By: #### T 7, TSH, CMP, LISANDRA, LIPA, LIPID #### [facility] [address] [place] [address] Dr. Janell Marquez Glucose [Mass/Vol] 115 mg/dL Critically high 74-106 [facility] Comment on above: Performed By: #### T 7, TSH, CMP, LISANDRA, LIPA, LIPID #### [facility] [address] [place] [address] Dr. Janell Marquez Potassium [Moles/Vol] 4.1 mmol/L Normal 3.5-5.1 [facility] Comment on above: Performed By: #### T 7, TSH, CMP, LISANDRA, LIPA, LIPID #### [facility] [address] [place] [address] Dr. Janell Marquez Protein [Mass/Vol] 7.2 g/dL Normal 6.4-8.2 The [facility] Comment on above: Performed By: #### T 7, TSH, CMP, LISANDRA, LIPA, LIPID #### [facility] [address] [place] [address] Dr. Janell Marquez Sodium [Moles/Vol] 141 mmol/L Normal 136-145 [facility] Comment on above: Performed By: #### T 7, TSH, CMP, LISANDRA, LIPA, LIPID #### [facility] [address] [place] [address] Dr. Janell Marquez Urea nitrogen [Mass/Vol] 16.0 mg/dL Normal 7.0-18.0 [facility] Comment on above: Performed By: #### T 7, TSH, CMP, LISANDRA, LIPA, LIPID #### [facility] [address] [place] [address] Dr. Janell Marquez Urea nitrogen/Creatinine [Mass ratio] 14.4 mg/mg Normal [facility] Comment on above: Performed By: #### T 7, TSH, CMP, LISANDRA, LIPA, LIPID #### [facility] [address] [place] [address] Dr. Janell Marquez TSHon 01-12-2022 TSH 1.412 uIU/mL Normal 0.358-3.740 The [facility] Comment on above: Performed By: #### T 7, TSH, CMP, LISANDRA, LIPA, LIPID #### [facility] [address] [place] [address] Dr. Janell Marquez VIT B12 AND FOLATEon 022 Cobalamin (Vitamin B12) [Mass/Vol] 411.0 pg/mL Normal 193.0-986.0 [facility] Comment on above: Performed By: #### T 7, TSH, CMP, LISANDRA, LIPA, LIPID #### [facility] [address], [place] [address] Dr. Janell Marquez FOLATE 11.10 ng/mL Normal 8.60-58.90 [facility] Comment on above: Performed By: #### T 7, TSH, CMP, LISANDRA, LIPA, LIPID #### [facility] [address] [place], [place] [address] Dr. Janell Marquez BASIC METABOLIC PANELon Calcium [Mass/Vol] 8.3 mg/dL Low 8.6-10.3 [facility] Comment on above: Order Comment: No: D o not add to previous draw Performed By: #### 0 [id number] #### [facility] [address] [place] [address], [facility] Chloride [Moles/Vol] 104 mmol/L Normal 98-107 The [facility] Comment on above: Order Comment: No: D o not add to previous draw Performed By: #### 0 [id number] #### [facility] [address] [place] [address], [place] CO2 [Moles/Vol] 29 mmol/L Normal 21-31 The [facility] Comment on above: Order Comment: No: D o not add to previous draw Performed By: #### 0 [id number] #### [facility] [address] [place] [address], [facility] Creatinine [Mass/Vol] 0.81 mg/dL Normal 0.70-1.30 The [facility] Comment on above: Order Comment: No: D o not add to previous draw Performed By: #### 0 [id number] #### [facility] [address] [place] [place] [address], [facility] GFR/1.73 sq M.predicted among blacks MDRD (S/P/Bld) [Vol rate/Area] mL/min/{1.73_m2} Normal >60 The [facility] Comment on above: Order Comment: No: D o not add to previous draw Performed By: #### 0 [id number] #### [facility] [address] [place] [address], [facility] GFR/1.73 sq M.predicted among non-blacks MDRD (S/P/Bld) [Vol rate/Area] mL/min/{1.73_m2} Normal >60 The [facility] Comment on above: Order Comment: No: D o not add to previous draw Performed By: #### 0 [id number] #### [facility] [address] [place] [address], [facility] Glucose [Mass/Vol] 144 mg/dL High 70-100 The [facility] Comment on above: Order Comment: No: D o not add to previous draw Performed By: #### 0 [id number] #### [facility] [address] [place] [address], [facility] Potassium [Moles/Vol] 3.6 mmol/L Normal 3.5-5.1 The [facility] Comment on above: Order Comment: No: D o not add to previous draw Performed By: #### 0 [id number] #### [facility] [address] [place] [address], [facility] Sodium [Moles/Vol] 139 mmol/L Normal 136-145 The [facility] Comment on above: Order Comment: No: D o not add to previous draw Performed By: #### 0 [id number] #### [facility] [address] [place] [address], [facility] Urea nitrogen [Mass/Vol] 9 mg/dL Normal 7-25 The [facility] Comment on above: Order Comment: No: D o not add to previous draw Performed By: #### 0 [id number] #### [facility] [address] [place] [address], [place] CBC COMPLETE BLOOD COUNTon 0 - Erythrocyte distribution width (RBC) [Ratio] 14.6 % Normal 11.5-15.0 The [facility] Comment on above: Order Comment: No: D o not add to previous draw Performed By: #### 0 [id number] #### [facility] [address] [place] [address], [facility] Hematocrit (Bld) [Volume fraction] 38.8 % Low 39.0-50.0 The [facility] Comment on above: Order Comment: No: D o not add to previous draw Performed By: #### 0 [id number] #### [facility] [address] [place] [address], [facility] Hemoglobin (Bld) [Mass/Vol] 12.1 g/dL Low 13.0-17.0 [facility] [facility] Comment on above: Order Comment: No: D o not add to previous draw Performed By: #### 0 0071 #### [facility] [address] [place] [address], [facility] MCH (RBC) [Entitic mass] 23.7 pg Low 27.0-33.0 The [facility] Comment on above: Order Comment: No: D o not add to previous draw Performed By: #### 0 0071 #### [facility] [address] [place] [address], [facility] MCHC (RBC) [Mass/Vol] 31.2 g/dL Low 32.0-35.0 The [facility] Comment on above: Order Comment: No: D o not add to previous draw Performed By: #### 0 0071 #### [facility] [address] [place] [address], [facility] MCV (RBC) [Entitic vol] 75.9 fL Low 82.0-98.0 The [facility] Comment on above: Order Comment: No: D o not add to previous draw Performed By: #### 0 0071 #### [facility] [address] [place] [address], [facility] Nucleated RBC/100 WBC (Bld) [Ratio] 0 % Normal 0-0 The [facility] Comment on above: Order Comment: No: D o not add to previous draw Performed By: #### 0 0071 #### [facility] [address] [place] [address], [facility] PLAT CNT 182 10*3/uL Normal 150-400 The [facility] Comment on above: Order Comment: No: D o not add to previous draw Performed By: #### 0 0071 #### [facility] [address] [place] [address], [facility] RBC (Bld) [#/Vol] 5.11 10*6/uL Normal 4.20-5.70 The [facility] Comment on above: Order Comment: No: D o not add to previous draw Performed By: #### 0 0071 #### [facility] [address] [place] [address], [facility] WBC (Bld) [#/Vol] 3.64 10*3/uL Low 4.00-10.60 The [facility] Comment on above: Order Comment: No: D o not add to previous draw Performed By: #### 0 0071 #### [facility] [address] [place] [address], [facility] MAGNESIUM BLOODon 07-26-2020 Magnesium [Mass/Vol] 1.8 mg/dL Low 1.9-2.7 [facility] Comment on above: Order Comment: No: D o not add to previous draw Performed By: #### 1 0070, 17679 #### [facility] [address] [place] [address], [facility] BASIC METABOLIC PANELon Calcium [Mass/Vol] 8.4 mg/dL Low 8.6-10.3 The [facility] Comment on above: Order Comment: No: D o not add to previous draw Performed By: #### 1 0070, 24281 #### [facility] [address] [place] [address], [facility] Chloride [Moles/Vol] 104 mmol/L Normal 98-107 The [facility] Comment on above: Order Comment: No: D o not add to previous draw Performed By: #### 1 69, 81595 #### [facility] [address] [place] [address], [place] CO2 [Moles/Vol] 27 mmol/L Normal 21-31 The [facility] Comment on above: Order Comment: No: D o not add to previous draw Performed By: #### 1 69, 03066 #### [facility] [address] [place] [address], [facility] Creatinine [Mass/Vol] 0.83 mg/dL Normal 0.70-1.30 The [facility] Comment on above: Order Comment: No: D o not add to previous draw Performed By: #### 1 69, 82384 #### [facility] [address] [place] [address], [place] GFR/1.73 sq M.predicted among blacks MDRD (S/P/Bld) [Vol rate/Area] mL/min/{1.73_m2} Normal >60 [facility] Comment on above: Order Comment: No: D o not add to previous draw Performed By: #### 1 69, 19816 #### [facility] [address] [place] [address], [place] GFR/1.73 sq M.predicted among non-blacks MDRD (S/P/Bld) [Vol rate/Area] mL/min/{1.73_m2} Normal >60 The [facility] Comment on above: Order Comment: No: D o not add to previous draw Performed By: #### 1 69, 06930 #### [facility] [address] [place] [address], [place] Glucose [Mass/Vol] 162 mg/dL High 70-100 [facility] Comment on above: Order Comment: No: D o not add to previous draw Performed By: #### 1 69, 75701 #### [facility] [address] [place] [address], [facility] Potassium [Moles/Vol] 3.4 mmol/L Low 3.5-5.1 The [facility] Comment on above: Order Comment: No: D o not add to previous draw Performed By: #### 1 69, 71517 #### [facility] [address] [place] [address], [place] Sodium [Moles/Vol] 137 mmol/L Normal 136-145 The [facility] Comment on above: Order Comment: No: D o not add to previous draw Performed By: #### 1 69, 24130 #### [facility] [address] [place] [id number], [facility] Urea nitrogen [Mass/Vol] 18 mg/dL Normal 7-25 The [facility] Comment on above: Order Comment: No: D o not add to previous draw Performed By: #### 1 69, 38580 #### [facility] [address] [place] [id number], [facility] CBC COMPLETE BLOOD COUNTon - Erythrocyte distribution width (RBC) [Ratio] 15.2 % High 11.5-15.0 The [facility] Comment on above: Order Comment: No: D o not add to previous draw Performed By: #### 0 0071 #### [facility] [address] [place] [id number], [facility] Hematocrit (Bld) [Volume fraction] 40.7 % Normal 39.0-50.0 The [facility] Comment on above: Order Comment: No: D o not add to previous draw Performed By: #### 0 0071 #### [facility] [address] [place] [id number], [facility] Hemoglobin (Bld) [Mass/Vol] 12.7 g/dL Low 13.0-17.0 The [facility] Comment on above: Order Comment: No: D o not add to previous draw Performed By: #### 0 0071 #### [facility] [address] [place] [address], [facility] MCH (RBC) [Entitic mass] 23.3 pg Low 27.0-33.0 The [facility] Comment on above: Order Comment: No: D o not add to previous draw Performed By: #### 0 0071 #### [facility] [address] [place] [id number], [facility] MCHC (RBC) [Mass/Vol] 31.2 g/dL Low 32.0-35.0 The [facility] Comment on above: Order Comment: No: D o not add to previous draw Performed By: #### 0 0071 #### [facility] [address] [place] [address], [facility] MCV (RBC) [Entitic vol] 74.8 fL Low 82.0-98.0 The [facility] Comment on above: Order Comment: No: D o not add to previous draw Performed By: #### 0 0071 #### [facility] [address] [place] [address], [facility] Nucleated RBC/100 WBC (Bld) [Ratio] 0 % Normal 0-0 [facility] Comment on above: Order Comment: No: D o not add to previous draw Performed By: #### 0 0071 #### [facility] [address] [facility] [place] [address], [facility] PLAT CNT 207 10*3/uL Normal 150-400 The [facility] Comment on above: Order Comment: No: D o not add to previous draw Performed By: #### 0 0071 #### [facility] [address] [facility] [place] [address], [facility] RBC (Bld) [#/Vol] 5.44 10*6/uL Normal 4.20-5.70 [facility] Comment on above: Order Comment: No: D o not add to previous draw Performed By: #### 0 0071 #### [facility] [address] [place] [address], [facility] WBC (Bld) [#/Vol] 3.05 10*3/uL Low 4.00-10.60 [facility] Comment on above: Order Comment: No: D o not add to previous draw Performed By: #### 0 0071 #### [facility] [address] [place] [address], [facility] MAGNESIUM BLOODon 07-25-2020 Magnesium [Mass/Vol] 1.8 mg/dL Low 1.9-2.7 The [facility] Comment on above: Order Comment: No: D o not add to previous draw Performed By: #### 1 0070, 75708 #### [facility] [address] POC GLUCOSE LABon 07-25-2020 Glucose [Mass/Vol] 155 mg/dL High 70-100 The [facility] Comment on above: Performed By: #### 0 0071, 05764 #### [facility] [address] [facility]. [address] *SARS-CoV-2 COVID-19on 07-24 SARS-CoV-2 (COVID-19) RNA LILLIANA+probe Ql (Unsp spec) Not detected Normal Not Detected The [facility] Comment on above: Order Comment: No: D o not add to previous draw Performed By: #### 0 0071, 78487 #### [facility] [address] [place] [address], [facility] CBC W/DIFFon 07-24-2020 ABS IMM GRANS 0.0 10*3/uL Normal 0.0-0.2 The [facility] Comment on above: Performed By: #### 0 0071 #### [facility] [address] [place] [address], [facility] ABS NEUTROPHILS 2.0 10*3/uL Normal 1.6-7.6 The [facility] Comment on above: Performed By: #### 0 0071 #### [facility] [address] [place] [address], [facility] Basophils (Bld) [#/Vol] 0.0 10*3/uL Normal 0.0-0.2 The [facility] Comment on above: Performed By: #### 0 0071 #### [facility] [address] [place] [address], [facility] Basophils/100 WBC (Bld) 0.4 % Normal 0.0-1.0 The [facility] Comment on above: Performed By: #### 0 0071 #### [facility] [address] [facility] [address], [facility] Eosinophils (Bld) [#/Vol] 0.0 10*3/uL Normal 0.0-0.5 The [facility] Comment on above: Performed By: #### 0 0071 #### [facility] [address] [place] [address], [facility] Eosinophils/100 WBC (Bld) 0.7 % Normal 0.0-6.0 The [facility] Comment on above: Performed By: #### 0 0071 #### [facility] [address] [place] [address], [facility] Erythrocyte distribution width (RBC) [Ratio] 15.8 % High 11.5-15.0 The [facility] Comment on above: Performed By: #### 0 0071 #### [facility] [address] [facility] [address], [facility] Hematocrit (Bld) [Volume fraction] 45.5 % Normal 39.0-50.0 The [facility] Comment on above: Performed By: #### 0 0071 #### [facility] [address] [place] [address], [facility] Hemoglobin (Bld) [Mass/Vol] 14.4 g/dL Normal 13.0-17.0 The [facility] Comment on above: Performed By: #### 0 0071 #### [facility] [address] [place] [address], [facility] IMMATURE GRANS 0.4 % Normal 0.0-1.0 The [facility] Comment on above: Performed By: #### 0 0071 #### [facility] [address] [place] [address], [facility] Lymphocytes (Bld) [#/Vol] 0.4 10*3/uL Low 1.2-4.0 The [facility] Comment on above: Performed By: #### 0 0071 #### [facility] [address] Lymphocytes/100 WBC (Bld) 14.5 % Low 20.0-45.0 The [facility] Comment on above: Performed By: #### 0 0071 #### [facility] [address] [place] [address], [facility] MCH (RBC) [Entitic mass] 23.7 pg Low 27.0-33.0 The [facility] Comment on above: Performed By: #### 0 0071 #### [facility] [address] MCHC (RBC) [Mass/Vol] 31.6 g/dL Low 32.0-35.0 The [facility] Comment on above: Performed By: #### 0 0071 #### [facility] [address] [place] [address], [facility] MCV (RBC) [Entitic vol] 75.0 fL Low 82.0-98.0 The [facility] Comment on above: Performed By: #### 0 0071 #### [facility] [address] [place] [address], [facility] Monocytes (Bld) [#/Vol] 0.3 10*3/uL Normal 0.1-1.0 The [facility] Comment on above: Performed By: #### 0 0071 #### [facility] [address] [place] [address], [facility] MONOS 12.3 % High 5.0-12.0 The [facility] Comment on above: Performed By: #### 0 0071 #### [facility] [address] [facility] [place] [address], [facility] Neutrophils/100 WBC (Bld) 71.7 % Normal 40.0-72.0 The [facility] Comment on above: Performed By: #### 0 0071 #### [facility] [address] [place] [address], [facility] Nucleated RBC/100 WBC (Bld) [Ratio] 0 % Normal 0-0 The [facility] Comment on above: Performed By: #### 0 0071 #### [facility] [address] PLAT CNT 225 10*3/uL Normal 150-400 The [facility] Comment on above: Performed By: #### 0 0071 #### [facility] [address] [facility] [place] [address], [facility] RBC (Bld) [#/Vol] 6.07 10*6/uL High 4.20-5.70 The [facility] Comment on above: Performed By: #### 0 0071 #### [facility] [address] [place] [address], [facility] WBC (Bld) [#/Vol] 2.76 10*3/uL Low 4.00-10.60 [facility] Comment on above: Performed By: #### 0 0071 #### [facility] [address] COMP METABOLIC PANELon 07-24 Albumin [Mass/Vol] 3.7 g/dL Normal 3.5-5.7 The [facility] Comment on above: Performed By: #### 3 5200, 13912, 79932 #### [facility] [address] [place] [address], [place] ALKALINE PHOSPH 58 IU/L Normal 34-104 [facility] Comment on above: Performed By: #### 3 5200, 58339, 65046 #### [facility] [address] [place] [address], [place] ALT [Catalytic activity/Vol] 12 U/L Normal 7-52 The [facility] Comment on above: Performed By: #### 3 5200, 96626, 31493 #### [facility] [address] [place] [address], [place] AST [Catalytic activity/Vol] 15 U/L Normal 13-39 The [facility] Comment on above: Performed By: #### 3 5200, 44158, 75785 #### [facility] [address] [place] [address], [place] Bilirubin [Mass/Vol] 1.3 mg/dL High 0.3-1.0 The [facility] Comment on above: Performed By: #### 3 5200, 37602, 77162 #### [facility] [address] [place] [address], [place] Calcium [Mass/Vol] 8.7 mg/dL Normal 8.6-10.3 The [facility] Comment on above: Performed By: #### 3 5200, 29533, 13482 #### [facility] [address] [place] [address], [place] Chloride [Moles/Vol] 99 mmol/L Normal 98-107 The [facility] Comment on above: Performed By: #### 3 5200, 94437, 62342 #### [facility] [address] [place] [address], [place] CO2 [Moles/Vol] 25 mmol/L Normal 21-31 [facility] Comment on above: Performed By: #### 3 5200, 30473, 87435 #### [facility] [address] [place] [address], [place] Creatinine [Mass/Vol] 1.01 mg/dL Normal 0.70-1.30 The [facility] Comment on above: Performed By: #### 3 5200, 50619, 30968 #### [facility] [address] [place] [address], [place] GFR/1.73 sq M.predicted among blacks MDRD (S/P/Bld) [Vol rate/Area] mL/min/{1.73_m2} Normal >60 The [facility] Comment on above: Performed By: #### 3 5200, 85536, 14432 #### [facility] [address] [place] [address], [place] GFR/1.73 sq M.predicted among non-blacks MDRD (S/P/Bld) [Vol rate/Area] mL/min/{1.73_m2} Normal >60 The [facility] Comment on above: Performed By: #### 3 5200, 54761, 57096 #### [facility] [address] [place] [address], [place] Glucose [Mass/Vol] 142 mg/dL High 70-100 The [facility] Comment on above: Performed By: #### 3 5200, 22342, 31485 #### [facility] [address] [place] [address], [place] Potassium [Moles/Vol] 3.9 mmol/L Normal 3.5-5.1 The [facility] Comment on above: Performed By: #### 3 5200, 27974, 79174 #### [facility] [address] [place] [address], [place] Protein [Mass/Vol] 6.6 g/dL Normal 6.0-8.3 The [facility] Comment on above: Performed By: #### 3 5200, 97609, 88539 #### [address] Sodium [Moles/Vol] 134 mmol/L Low 136-145 The [facility] Comment on above: Performed By: #### 3 5200, 13068, 17738 #### [address] Urea nitrogen [Mass/Vol] 20 mg/dL Normal 7-25 The [facility] Comment on above: Performed By: #### 3 5200, 04461, 06011 #### [address] ABDOMEN AND PELVIS W IV C ONTRASTon 07-24-2020 CT ABDOMEN AND PELVIS W IV CONTRAST [facility] Department of Radiology [address] [place], [place] [id number] Patient Name: ESTELLA JEFFERY : 1965 Sex: M Age: Race: Other Pt. Location: [facility] Patient Status: E Ordered Date: [...] achievable. Electronically signed: Miguelito Balderas. Transcribed by: [email or web address], User Resident: Electronically Signed by: MIGUELITO BALDERAS @ 07/24/2020 04:14 PM Normal The [facility] Comment on above: Order Comment: No: D o not add to previous draw LACTATE BLOODon 07-24-2020 Lactate [Moles/Vol] 1.0 mmol/L Normal 0.5-2.2 [place] Comment on above: Performed By: #### 1 0054 #### [address] LIPASE BLOODon 07-24-2020 LIPASE 7 Units/L Low 11-82 [facility] Comment on above: Performed By: #### 3 5200, 02251, 04965 #### [facility] [address] PORTABLE CHEST 1 VIEWon PORTABLE CHEST 1 VIEW [facility] Department of Radiology [address] [place] [id number] Patient Name: ESTELLA JEFFERY : 1965 Sex: M Age: Race: Other Pt. Location: [facility] Patient Status: E Ordered Date: [...] indicated. Electronically signed: Miguelito Balderas. Transcribed by: [email or web address], User Resident: Electronically Signed by: MIGUELITO BALDERAS @ 07/24/2020 03:58 PM Normal The [facility] Comment on above: Order Comment: No: D o not add to previous draw TROPONIN-Ion 07-24-2020 Troponin I.cardiac [Mass/Vol] 0.00 ng/mL Normal 0.00-0.04 [facility] Comment on above: Result Comment: REFE RENCE RANGES: 0.00 - 0.14 ng/ml NEGATIVE 0.15 - 0.25 ng/ml INDETERMINATE > 0.25 ng/ml INDICATIVE OF AN M.I. Performed By: #### 3 5200, 55078, 60691 #### [facility] [address] [place] [address], [facility] URINALYSIS REFLEXon 07-24-19 Appearance (U) CLEAR Normal CLEAR The [facility] Comment on above: Order Comment: No: D o not add to previous draw Performed By: #### 0 0071, 89398 #### [facility] [address] [place] [address], [place] Bilirubin Ql (U) Negative Normal NEGATIVE The [facility] Comment on above: Order Comment: No: D o not add to previous draw Performed By: #### 0 0071, 04340 #### [facility] [address] [place] [address], [place] Color (U) ANEL Abnormal YELLOW The [facility] Comment on above: Order Comment: No: D o not add to previous draw Performed By: #### 0 0071, 52660 #### [facility] [address] [place] [address], [place] Glucose Ql (U) Negative Normal NEGATIVE The [facility] Comment on above: Order Comment: No: D o not add to previous draw Performed By: #### 0 0071, 34855 #### [facility] [address] [place] [address], [place] Hemoglobin Ql (U) Negative Normal NEGATIVE The [facility] Comment on above: Order Comment: No: D o not add to previous draw Performed By: #### 0 0071, 81659 #### [facility] [address] [place] [address], [place] KETONE 20 mg/dL Abnormal NEGATIVE The [facility] Comment on above: Order Comment: No: D o not add to previous draw Performed By: #### 0 0071, 96657 #### [facility] [address] [place] [address], [place] LEUK DINO Negative Normal NEGATIVE The [facility] Comment on above: Order Comment: No: D o not add to previous draw Performed By: #### 0 0071, 35343 #### [facility] [address] [place] [address], [place] MICRO NOT DONE Normal The [facility] Comment on above: Order Comment: No: D o not add to previous draw Result Comment: Micr oscopics not performed on urines with negative chemical reactions unless requested in original order Performed By: #### 0 0071, 96164 #### [facility] [address] [place] [address], [place] Nitrite Ql (U) Negative Normal NEGATIVE The [facility] Comment on above: Order Comment: No: D o not add to previous draw Performed By: #### 0 0071, 28348 #### [facility] [address] [place] [address], [facility] pH (U) 5.0 [pH] Normal 5.0-8.0 The [facility] Comment on above: Order Comment: No: D o not add to previous draw Performed By: #### 0 0071, 99722 #### [facility] [address] [place] [address], [facility] Protein Ql (U) Negative Normal NEGATIVE The [facility] Comment on above: Order Comment: No: D o not add to previous draw Performed By: #### 0 0071, 26966 #### [facility] [address] [place] [address], [facility] SPEC GRAV 1.084 High 1.015-1.020 [facility] Comment on above: Order Comment: No: D o not add to previous draw Result Comment: DONE BY DILUTION Performed By: #### 0 0071, 45229 #### [facility] [address] [place] [address], [facility] BASIC METABOLIC PANELon 02-0 Calcium [Mass/Vol] 8.8 mg/dL Normal 8.6-10.3 [facility] Comment on above: Order Comment: No: D o not add to previous draw Performed By: #### 0 0071, 46618 #### [facility] [address] [place] [address], [place] Chloride [Moles/Vol] 103 mmol/L Normal 98-107 The [facility] Comment on above: Order Comment: No: D o not add to previous draw Performed By: #### 0 0071, [id number] #### [facility] [address] [place] [address], [place] CO2 [Moles/Vol] 27 mmol/L Normal 21-31 [facility] Comment on above: Order Comment: No: D o not add to previous draw Performed By: #### 0 0071, [id number] #### [facility] [address] [place] [address], [facility] Creatinine [Mass/Vol] 0.87 mg/dL Normal 0.70-1.30 The [facility] Comment on above: Order Comment: No: D o not add to previous draw Performed By: #### 0 0071, [id number] #### [facility] [address] [place] [address], [place] GFR/1.73 sq M.predicted among blacks MDRD (S/P/Bld) [Vol rate/Area] mL/min/{1.73_m2} Normal >60 The [facility] Comment on above: Order Comment: No: D o not add to previous draw Performed By: #### 0 0071, [id number] #### [facility] [address] [place] [address], [place] GFR/1.73 sq M.predicted among non-blacks MDRD (S/P/Bld) [Vol rate/Area] mL/min/{1.73_m2} Normal >60 The [facility] Comment on above: Order Comment: No: D o not add to previous draw Performed By: #### 0 0071, 85581 #### [facility] [address] [place] [address], [place] Glucose [Mass/Vol] 156 mg/dL High 70-100 [facility] Comment on above: Order Comment: No: D o not add to previous draw Performed By: #### 0 0071, 78585 #### [facility] [address] [place] [address], [place] Potassium [Moles/Vol] 3.9 mmol/L Normal 3.5-5.1 The [facility] Comment on above: Order Comment: No: D o not add to previous draw Performed By: #### 0 0071, 30781 #### [facility] [address] [place] [address], [facility] Sodium [Moles/Vol] 136 mmol/L Normal 136-145 The [facility] Comment on above: Order Comment: No: D o not add to previous draw Performed By: #### 0 0071, [id number] #### [facility] [address] [place] [address], [facility] Urea nitrogen [Mass/Vol] 8 mg/dL Normal 7-25 The [facility] Comment on above: Order Comment: No: D o not add to previous draw Performed By: #### 0 0071, [id number] #### [facility] [address] [place] [address], [facility] CBC COMPLETE BLOOD COUNTon 0 - Erythrocyte distribution width (RBC) [Ratio] 15.1 % High 11.5-15.0 [facility] Comment on above: Order Comment: No: D o not add to previous draw Performed By: #### 0 0071 #### [facility] [address] [place] [address], [facility] Hematocrit (Bld) [Volume fraction] 44.1 % Normal 39.0-50.0 The [facility] Comment on above: Order Comment: No: D o not add to previous draw Performed By: #### 0 0071 #### [facility] [address] [place] [address], [facility] Hemoglobin (Bld) [Mass/Vol] 13.4 g/dL Normal 13.0-17.0 The [facility] Comment on above: Order Comment: No: D o not add to previous draw Performed By: #### 0 0071 #### [facility] [address] [place] [id number], [facility] MCH (RBC) [Entitic mass] 23.1 pg Low 27.0-33.0 The [facility] Comment on above: Order Comment: No: D o not add to previous draw Performed By: #### 0 0071 #### [facility] [address] [place] [address], [facility] MCHC (RBC) [Mass/Vol] 30.4 g/dL Low 32.0-35.0 The [facility] Comment on above: Order Comment: No: D o not add to previous draw Performed By: #### 0 0071 #### [facility] [address] [place] [address], [facility] MCV (RBC) [Entitic vol] 76.0 fL Low 82.0-98.0 The [facility] Comment on above: Order Comment: No: D o not add to previous draw Performed By: #### 0 0071 #### [facility] [address] [place] [address], [facility] Nucleated RBC/100 WBC (Bld) [Ratio] 0 % Normal 0-0 The [facility] Comment on above: Order Comment: No: D o not add to previous draw Performed By: #### 0 0071 #### [facility] [address] [place] [address], [facility] PLAT CNT 190 10*3/uL Normal 150-400 The [facility] Comment on above: Order Comment: No: D o not add to previous draw Performed By: #### 0 0071 #### [facility] [address] [facility] [place] [address], [facility] RBC (Bld) [#/Vol] 5.80 10*6/uL High 4.20-5.70 The [facility] Comment on above: Order Comment: No: D o not add to previous draw Performed By: #### 0 0071 #### [facility] [address] [facility] [place] [address], [facility] WBC (Bld) [#/Vol] 7.98 10*3/uL Normal 4.00-10.60 The [facility] Comment on above: Order Comment: No: D o not add to previous draw Performed By: #### 0 0071 #### [facility] [address] [place] [address], [place] MAGNESIUM BLOODon 07-23-2020 Magnesium [Mass/Vol] 1.9 mg/dL Normal 1.9-2.7 The [facility] Comment on above: Order Comment: No: D o not add to previous draw Performed By: #### 0 0071, 98495 #### [facility] [address] [place] [address], [place] POC GLUCOSE LABon 07-23-2020 Glucose [Mass/Vol] 140 mg/dL High 70-100 The [facility] Comment on above: Performed By: #### 0 0071 #### [facility] [address] [place] [address], [place] Glucose [Mass/Vol] 155 mg/dL High 70-100 The [facility] Comment on above: Performed By: #### 0 0071, [id number] #### [facility] [address] [place] [address], [place] Glucose [Mass/Vol] 164 mg/dL High 70-100 The [facility] Comment on above: Performed By: #### 0 0071 #### [facility] [address] [place] [address], [facility] BASIC METABOLIC PANELon Calcium [Mass/Vol] 8.3 mg/dL Low 8.6-10.3 The [facility] Comment on above: Order Comment: No: D o not add to previous draw Performed By: #### 0 0071, [id number] #### [facility] [address] [place] [address], [place] Chloride [Moles/Vol] 103 mmol/L Normal 98-107 The [facility] Comment on above: Order Comment: No: D o not add to previous draw Performed By: #### 0 0071, 77354 #### [facility] [address] [place] [address], [place] CO2 [Moles/Vol] 26 mmol/L Normal 21-31 [facility] Comment on above: Order Comment: No: D o not add to previous draw Performed By: #### 0 0071, [id number] #### [facility] [address] [place] [address], [place] Creatinine [Mass/Vol] 0.90 mg/dL Normal 0.70-1.30 The [facility] Comment on above: Order Comment: No: D o not add to previous draw Performed By: #### 0 0071, 68668 #### [facility] [address] [place] [address], [place] GFR/1.73 sq M.predicted among blacks MDRD (S/P/Bld) [Vol rate/Area] mL/min/{1.73_m2} Normal >60 The [facility] Comment on above: Order Comment: No: D o not add to previous draw Performed By: #### 0 0071, 45045 #### [facility] [address] [place] [address], [place] GFR/1.73 sq M.predicted among non-blacks MDRD (S/P/Bld) [Vol rate/Area] mL/min/{1.73_m2} Normal >60 The [facility] Comment on above: Order Comment: No: D o not add to previous draw Performed By: #### 0 0071, 26648 #### [facility] [address] [place] [address], [place] Glucose [Mass/Vol] 166 mg/dL High 70-100 [facility] Comment on above: Order Comment: No: D o not add to previous draw Performed By: #### 0 0071, 98436 #### [facility] [address] [place] [address], [place] Potassium [Moles/Vol] 4.1 mmol/L Normal 3.5-5.1 The [facility] Comment on above: Order Comment: No: D o not add to previous draw Performed By: #### 0 0071, 45326 #### [facility] [address] [place] [address], [place] Sodium [Moles/Vol] 136 mmol/L Normal 136-145 The [facility] Comment on above: Order Comment: No: D o not add to previous draw Performed By: #### 0 0071, [id number] #### [facility] [address] [place] [address], [place] Urea nitrogen [Mass/Vol] 12 mg/dL Normal 7-25 The [facility] Comment on above: Order Comment: No: D o not add to previous draw Performed By: #### 0 0071, [id number] #### [facility] [address] [place] [address], [place] CBC COMPLETE BLOOD COUNTon 0 - Erythrocyte distribution width (RBC) [Ratio] 14.9 % Normal 11.5-15.0 The [facility] Comment on above: Order Comment: No: D o not add to previous draw Performed By: #### 0 0071, 49821 #### [facility] [address] [place] [address], [place] Hematocrit (Bld) [Volume fraction] 42.8 % Normal 39.0-50.0 The [facility] Comment on above: Order Comment: No: D o not add to previous draw Performed By: #### 0 0071, 10135 #### [facility] [address] [place] [address], [place] Hemoglobin (Bld) [Mass/Vol] 13.3 g/dL Normal 13.0-17.0 The [facility] Comment on above: Order Comment: No: D o not add to previous draw Performed By: #### 0 0071, 23336 #### [facility] [address] [place] [address], [place] MCH (RBC) [Entitic mass] 23.4 pg Low 27.0-33.0 The [facility] Comment on above: Order Comment: No: D o not add to previous draw Performed By: #### 0 0071, 71180 #### [facility] [address] [place] [address], [facility] MCHC (RBC) [Mass/Vol] 31.1 g/dL Low 32.0-35.0 The [facility] Comment on above: Order Comment: No: D o not add to previous draw Performed By: #### 0 0071, 40358 #### [facility] [address] [place] [address], [facility] MCV (RBC) [Entitic vol] 75.2 fL Low 82.0-98.0 The [facility] Comment on above: Order Comment: No: D o not add to previous draw Performed By: #### 0 0071, [id number] #### [facility] [address] Nucleated RBC/100 WBC (Bld) [Ratio] 0 % Normal 0-0 The [facility] Comment on above: Order Comment: No: D o not add to previous draw Performed By: #### 0 0071, 42211 #### [facility] [address] [place] [address], [facility] PLAT CNT 211 10*3/uL Normal 150-400 The [facility] Comment on above: Order Comment: No: D o not add to previous draw Performed By: #### 0 0071, 17390 #### [facility] [address] [place] [address], [facility] RBC (Bld) [#/Vol] 5.69 10*6/uL Normal 4.20-5.70 The [facility] Comment on above: Order Comment: No: D o not add to previous draw Performed By: #### 0 0071, 93317 #### [facility] [address] WBC (Bld) [#/Vol] 8.55 10*3/uL Normal 4.00-10.60 The [facility] Comment on above: Order Comment: No: D o not add to previous draw Performed By: #### 0 0071, 77617 #### [facility] [address] MAGNESIUM BLOODon 07-22-2020 Magnesium [Mass/Vol] 2.0 mg/dL Normal 1.9-2.7 The [facility] Comment on above: Order Comment: No: D o not add to previous draw Performed By: #### 0 0071, 59863 #### [facility] [address] Operative Reporton Operative Report MR#: [id number] I [facility] Pt. Name: Estella Jeffery Room #: [id number] Discharge Date: Birthdate: 1965 OPERATIVE REPORT DATE [...] P/Naya Izaguirre M.D. Date Trans: 07/21/2020 10:04 P/mushtaqo [id number] cc: Jae Lopez M.D. [address], [place] [address] Normal The [facility] POC GLUCOSE LABon 07-22-2020 Glucose [Mass/Vol] 142 mg/dL High 70-100 The [facility] Comment on above: Performed By: #### 0 0071, 93767 #### [facility] [address] [place] [address], [place] Glucose [Mass/Vol] 113 mg/dL High 70-100 The [facility] Comment on above: Performed By: #### 0 0071, 60052 #### [facility] [address] [place] [address], [place] Glucose [Mass/Vol] 153 mg/dL High 70-100 The [facility] Comment on above: Performed By: #### 0 0071, [id number] #### [facility] [address] [place] [address], [place] Glucose [Mass/Vol] 127 mg/dL High 70-100 The [facility] Comment on above: Performed By: #### 0 0071, 96984 #### [facility] [address] [place] [address], [place] Glucose [Mass/Vol] 176 mg/dL High 70-100 The [facility] Comment on above: Performed By: #### 0 0071 #### [facility] [address] [place] [address], [place] *MRSA/MSSA DNA NASALon 07-21 *MRSA/MSSA DNA NASAL Clinical Report: (D ) Specimen: NASAL SWAB Collected: 07/21/2020 00:00 Status: Final Last Updated: 07/21/2020 15:28 (1) No collection time noted on specimen or requisition. The collection time recorded is the time of receipt in the lab. MSSA DNA (Final) Methicillin Susceptible Staphylococcus aureus DNA Detected MRSA DNA (Final) Negative Normal The [facility] Comment on above: Order Comment: No: D o not add to previous draw Performed By: #### 0 0071, 14019 #### [facility] [address] [place] [address], [facility] POC GLUCOSE LABon 07-21-2020 Glucose [Mass/Vol] 168 mg/dL High 70-100 [facility] Comment on above: Performed By: #### 0 0071 #### [facility] [address] [facility] [place] [address], [facility] Glucose [Mass/Vol] 211 mg/dL High 70-100 The [facility] Comment on above: Performed By: #### 0 0071, 98196 #### [facility] [address] [place] [address], [facility] Glucose [Mass/Vol] 117 mg/dL High 70-100 The [facility] Comment on above: Performed By: #### 0 0071, 82111 #### [facility] [address] [facility]. [address] *SARS-CoV-2 COVID-19on 07-18 SARS-CoV-2 (COVID-19) RNA LILLIANA+probe Ql (Unsp spec) Not detected Normal Not Detected The [facility] Comment on above: Order Comment: No: D o not add to previous draw Performed By: #### 0 0071, 09456 #### [facility] [address] [facility]. [address] BASIC METABOLIC PANELon 06-21 Calcium [Mass/Vol] 9.2 mg/dL Normal 8.6-10.3 The [facility] Comment on above: Performed By: #### 0 0071 #### [facility] [address] [facility]. [address] Chloride [Moles/Vol] 100 mmol/L Normal 98-107 The [facility] Comment on above: Performed By: #### 0 0071 #### [facility] [address] [place] [address], [facility] CO2 [Moles/Vol] 30 mmol/L Normal 21-31 [facility] Comment on above: Performed By: #### 0 0071 #### [facility] [address] [place] [id number], [facility] Creatinine [Mass/Vol] 1.01 mg/dL Normal 0.70-1.30 The [facility] Comment on above: Performed By: #### 0 0071 #### [facility] [address] [place] [id number], [facility] GFR/1.73 sq M.predicted among blacks MDRD (S/P/Bld) [Vol rate/Area] mL/min/{1.73_m2} Normal >60 The [facility] Comment on above: Performed By: #### 0 0071 #### [facility] [address] [place] [address], [facility] GFR/1.73 sq M.predicted among non-blacks MDRD (S/P/Bld) [Vol rate/Area] mL/min/{1.73_m2} Normal >60 The [facility] Comment on above: Performed By: #### 0 0071 #### [facility] [address] [place] [address], [place] Glucose [Mass/Vol] 121 mg/dL High 70-100 [facility] Comment on above: Performed By: #### 0 0071 #### [facility] [address] [place] [address], [place] Potassium [Moles/Vol] 4.4 mmol/L Normal 3.5-5.1 The [facility] Comment on above: Performed By: #### 0 0071 #### [facility] [address] Sodium [Moles/Vol] 135 mmol/L Low 136-145 The [facility] Comment on above: Performed By: #### 0 0071 #### [facility] [address] Urea nitrogen [Mass/Vol] 14 mg/dL Normal 7-25 The [facility] Comment on above: Performed By: #### 0 0071 #### [facility] [address] [place] [address], [facility] CBC W/DIFFon 07-18-2020 ABS IMM GRANS 0.0 10*3/uL Normal 0.0-0.2 The [facility] Comment on above: Performed By: #### 0 0071 #### [facility] [address] ABS NEUTROPHILS 2.5 10*3/uL Normal 1.6-7.6 The [facility] Comment on above: Performed By: #### 0 0071 #### [facility] [address] [place] [address], [facility] Basophils (Bld) [#/Vol] 0.0 10*3/uL Normal 0.0-0.2 The [facility] Comment on above: Performed By: #### 0 0071 #### [facility] [address] [place] [address], [facility] Basophils/100 WBC (Bld) 0.9 % Normal 0.0-1.0 The [facility] Comment on above: Performed By: #### 0 0071 #### [facility] [address] [place] [address], [facility] Eosinophils (Bld) [#/Vol] 0.1 10*3/uL Normal 0.0-0.5 The [facility] Comment on above: Performed By: #### 0 0071 #### [facility] [address] [place] [address], [facility] Eosinophils/100 WBC (Bld) 1.2 % Normal 0.0-6.0 The [facility] Comment on above: Performed By: #### 0 0071 #### [facility] [address] [facility] [place] [place] [address], [facility] Erythrocyte distribution width (RBC) [Ratio] 14.8 % Normal 11.5-15.0 The [facility] Comment on above: Performed By: #### 0 0071 #### [facility] [address] [facility] [place] [address], [facility] Hematocrit (Bld) [Volume fraction] 47.6 % Normal 39.0-50.0 The [facility] Comment on above: Performed By: #### 0 0071 #### [facility] [address] [facility] [place] [address], [facility] Hemoglobin (Bld) [Mass/Vol] 14.5 g/dL Normal 13.0-17.0 The [facility] Comment on above: Performed By: #### 0 0071 #### [facility] [address] [facility] [place] [address], [facility] IMMATURE GRANS 0.2 % Normal 0.0-1.0 The [facility] Comment on above: Performed By: #### 0 0071 #### [facility] [address] [facility] [place] [address], [facility] Lymphocytes (Bld) [#/Vol] 1.4 10*3/uL Normal 1.2-4.0 The [facility] Comment on above: Performed By: #### 0 0071 #### [facility] [address] [facility] [place] [address], [facility] Lymphocytes/100 WBC (Bld) 32.9 % Normal 20.0-45.0 The [facility] Comment on above: Performed By: #### 0 0071 #### [facility] [address] MCH (RBC) [Entitic mass] 23.2 pg Low 27.0-33.0 The [facility] Comment on above: Performed By: #### 0 0071 #### [facility] [address] [facility] [address] MCHC (RBC) [Mass/Vol] 30.5 g/dL Low 32.0-35.0 The [facility] Comment on above: Performed By: #### 0 0071 #### [facility] [address] MCV (RBC) [Entitic vol] 76.0 fL Low 82.0-98.0 The [facility] Comment on above: Performed By: #### 0 0071 #### [facility] [address] Monocytes (Bld) [#/Vol] 0.3 10*3/uL Normal 0.1-1.0 The [facility] Comment on above: Performed By: #### 0 0071 #### [facility] [address] MONOS 7.5 % Normal 5.0-12.0 The [facility] Comment on above: Performed By: #### 0 0071 #### [facility] [address] Neutrophils/100 WBC (Bld) 57.3 % Normal 40.0-72.0 The [facility] Comment on above: Performed By: #### 0 0071 #### [facility] [address] [place] [address], [facility] Nucleated RBC/100 WBC (Bld) [Ratio] 0 % Normal 0-0 The [facility] Comment on above: Performed By: #### 0 0071 #### [facility] [address] PLAT CNT 222 10*3/uL Normal 150-400 The [facility] Comment on above: Performed By: #### 0 0071 #### [facility] [address] RBC (Bld) [#/Vol] 6.26 10*6/uL High 4.20-5.70 The [facility] Comment on above: Performed By: #### 0 0071 #### [facility] [address] [facility] [address] WBC (Bld) [#/Vol] 4.28 10*3/uL Normal 4.00-10.60 The [facility] Comment on above: Performed By: #### 0 0071 #### [facility] [address] PROTHROMBIN TIMEon 1 INR Coag (PPP) [Relative time] 0.95 {INR} Normal 0.91-1.16 [facility] Comment on above: Result [...] CHEST 1995;[id number]. Performed By: #### 0 0071, [id number] #### [facility] [address] [place] [address], [facility] PT Coag (PPP) [Time] 12.7 s Normal 12.3-14.8 The [facility] Comment on above: Result Comment: ALL RESULTS MUST BE INTERPRETED WITH RESPECT TO BLOOD DRAWING ARTIFACT OR DILUTION ERROR OF ANTICOAGULANT AT THE TIME OF SAMPLING. Performed By: #### [id number] #### [facility] [address] Vital Signs Date Time Vital Sign Value Performing Clinician Facility 11-06-2024 13:44-0400 Body height 165.1 cm Jaz Mici PA-C Work Phone: [facility] [employer] [facility] 11-06-2024 13:44-0400 Body mass index (BMI) [Ratio] 27.46 kg/m2 Jaz Mici PA-C Work Phone: [facility] [employer] [facility] 11-06-2024 13:44-0400 Body weight 74.84 kg Jaz [facility]-C [facility] 11-06-2024 13:44-0400 Diastolic blood pressure 80 mm[Hg] Jaz Mici PA-C Work Phone: [facility] [employer] [facility] 11-06-2024 13:44-0400 Heart rate 71 /min Jaz Mici PA-C Work Phone: [facility] [employer] [facility] 11-06-2024 13:44-0400 SaO2% (BldA) [Mass fraction] 96 % Jaz [facility]i [facility]-C [facility] 11-06-2024 13:44-0400 Systolic blood pressure 132 mm[Hg] Jaz Mici PA-C Work Phone: [facility] [employer] [facility] 10-15-2024 14:44-0400 Body height 165.1 cm Rachele Lopez MD [facility] 10-15-2024 14:44-0400 Body mass index (BMI) [Ratio] 27.31 kg/m2 Rachele Lopez MD Work Phone: [facility] 10-15-2024 14:44-0400 Body weight 74.44 kg Rachele Lopez MD Work Phone: [facility] 10-15-2024 14:44-0400 Diastolic blood pressure 61 mm[Hg] Rachele Lopez MD Work Phone: [facility] 10-15-2024 14:44-0400 Heart rate 100 /min Rachele Lopez MD Work Phone: [facility] 10-15-2024 14:44-0400 Systolic blood pressure 93 mm[Hg] Rachele Lopez MD Work Phone: [facility] 07-30-2024 12:33-0500 Body mass index (BMI) [Ratio] 27.96 kg/m2 Fidelina Spanower PLUMBING HARDWARE ASSEMBLER.WAITER/WAITRESS TAVERN Work Phone: [facility] 07-30-2024 12:33-0500 Body temperature 97.59 [degF] Fidelina Spanower PLUMBING HARDWARE ASSEMBLER.WAITER/WAITRESS TAVERN Work Phone: [facility] 07-30-2024 12:33-0500 Body weight 76.2 kg Fidelina Spanower PLUMBING HARDWARE ASSEMBLER.WAITER/WAITRESS TAVERN Work Phone: [facility] 07-30-2024 12:33-0500 Diastolic blood pressure 63 mm[Hg] Fidelina Spanower PLUMBING HARDWARE ASSEMBLER.WAITER/WAITRESS TAVERN Work Phone: [facility] 07-30-2024 12:33-0500 Heart rate 84 /min Fidelina Spanower PLUMBING HARDWARE ASSEMBLER.WAITER/WAITRESS TAVERN Work Phone: [facility] 07-30-2024 12:33-0500 Systolic blood pressure 99 mm[Hg] Fidelina Spanower PLUMBING HARDWARE ASSEMBLER.WAITER/WAITRESS TAVERN Work Phone: [facility] 07-22-2024 08:01-0500 Diastolic blood pressure 70 mm[Hg] Luiz Shipley MD Work Phone: [facility] 07-22-2024 08:01-0500 Heart rate 92 /min Luiz Shipley MD Work Phone: [facility] 07-22-2024 08:01-0500 SaO2% (BldA) [Mass fraction] 95 % Luiz Shipley MD Work Phone: [facility] 07-22-2024 08:01-0500 Systolic blood pressure 105 mm[Hg] Luiz Shipley MD Work Phone: [facility] 07-22-2024 05:00-0500 Body temperature 97.7 [degF] Luiz Shipley MD Work Phone: [facility] 07-22-2024 05:00-0500 Respiratory rate 15 /min Luiz Shipley MD Work Phone: [facility] 07-12-2024 07:00-0500 Body mass index (BMI) [Ratio] 30.78 kg/m2 Luiz Shipley MD Work Phone: [facility] 07-12-2024 07:00-0500 Body weight 83.9 kg Luiz Shipley MD Work Phone: [facility] 06-21-2024 10:23-0500 Heart rate 69 /min Danni Lue [facility] 06-21-2024 10:23-0500 SaO2% (BldA) [Mass fraction] 98 % Danni Lue [facility] 06-21-2024 10:23-0500 Diastolic blood pressure 88 mm[Hg] Danni Lue [facility] 06-21-2024 10:23-0500 Mean blood pressure 104 mm[Hg] Danni Lue [facility] 06-21-2024 10:23-0500 Systolic blood pressure 135 mm[Hg] Danni Lue [facility] 03-15-2024 14:28-0400 Body height 165.1 cm MD Jae Lopez Work Phone: [facility] 03-15-2024 14:28-0400 Body weight 73.93 kg MD Jae Lopez Work Phone: [facility] 01-11-2024 09:54-0400 Blood Pressure Location Danni Lue [facility] 01-11-2024 09:54-0400 Body temperature 98.6 [degF] Danni Lue [facility] 01-11-2024 09:54-0400 Diastolic blood pressure 72 mm[Hg] Danni Lue [facility] 01-11-2024 09:54-0400 Heart rate 57 /min Danni Lue [facility] 01-11-2024 09:54-0400 Respiratory rate 16 /min Danni Lue [facility] 01-11-2024 09:54-0400 Systolic blood pressure 119 mm[Hg] Danni Lue [facility] 10-12-2022 12:01-0400 Diastolic blood pressure 74 mm[Hg] Miguelito Chicas APRN.WAITER/WAITRESS TAVERN Work Phone: [facility] 10-12-2022 12:01-0400 Heart rate 58 /min Miguelito Chicas APRN.WAITER/WAITRESS TAVERN Work Phone: [facility] 10-12-2022 12:01-0400 Systolic blood pressure 117 mm[Hg] Miguelito Chicas APRN.WAITER/WAITRESS TAVERN Work Phone: [facility] 04-30-2022 10:56-0500 Body weight 86.23 kg Gera Cardona DO Work Phone: [facility] 04-30-2022 10:56-0500 Diastolic blood pressure 91 mm[Hg] Gera Cardona DO Work Phone: [facility] 04-30-2022 10:56-0500 Heart rate 82 /min Gera Cardona DO Work Phone: [facility] 04-30-2022 10:56-0500 SaO2% (BldA) [Mass fraction] 97 % Gera Cardona DO Work Phone: [facility] 04-30-2022 10:56-0500 Systolic blood pressure 139 mm[Hg] Gera Cardona DO Work Phone: [facility] 04-26-2022 03:51-0500 Body height 165.1 cm Roosevelt Merlos MD Work Phone: [facility] 04-26-2022 03:51-0500 Body weight 83.6 kg Roosevelt Merlos MD Work Phone: [facility] 04-22-2022 16:41-0400 Diastolic blood pressure 100 mm[Hg] Brenda Francis PLUMBING HARDWARE ASSEMBLER.WAITER/WAITRESS TAVERN Work Phone: [facility] 04-22-2022 16:41-0400 Systolic blood pressure 156 mm[Hg] Brenda Francis PLUMBING HARDWARE ASSEMBLER.WAITER/WAITRESS TAVERN Work Phone: [facility] 04-22-2022 16:17-0400 Body temperature 98.29 [degF] Brenda Francis PLUMBING HARDWARE ASSEMBLER.WAITER/WAITRESS TAVERN Work Phone: [facility] 04-22-2022 16:17-0400 Body weight 86.27 kg Brenda Francis PLUMBING HARDWARE ASSEMBLER.WAITER/WAITRESS TAVERN Work Phone: [facility] 04-22-2022 16:17-0400 Heart rate 98 /min Brenda Francis PLUMBING HARDWARE ASSEMBLER.WAITER/WAITRESS TAVERN Work Phone: [facility] 04-22-2022 16:17-0400 SaO2% (BldA) [Mass fraction] 100 % Brenda Blanco PLUMBING HARDWARE ASSEMBLER.WAITER/WAITRESS TAVERN Work Phone: [facility] Encounters Encounter Date Encounter Type Care Provider Facility Start: 12-18-2024 End: 12-18-2024 Telephone encounter Roberta Bui RN [facility] Comment on above: MRI Start: 11-06-2024 End: 11-06-2024 Office outpatient visit 15 minutes [facility] PA-C Work Phone: [facility] Comment on above: Orthostatic hypotens ion (Primary Dx); Bradycardia Start: 11-06-2024 End: 11-06-2024 ambulatory [facility] Start: 10-26-2024 End: 10-26-2024 Chart abstracting Scanning Provider External [facility] Start: 10-23-2024 End: 10-23-2024 Telephone encounter Germaine Ellis [facility] Call Nina kramer Comment on above: Hypotension Start: 10-19-2024 End: 10-24-2024 Evaluation and management of inpatient [facility] Start: 10-15-2024 End: 10-15-2024 Office outpatient new 45 minutes Rachele Lopez MD Work Phone: 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[facility]); Episode of confusion Start: 10-15-2024 End: 10-15-2024 ambulatory RACHELE LOPEZ [facility] Start: 07-30-2024 End: 07-30-2024 ambulatory FIDELINA FISHER Facility:[facility] Start: 07-30-2024 End: 07-30-2024 Patient encounter procedure Fidelina Fisher PLUMBING HARDWARE ASSEMBLER.WAITER/WAITRESS TAVERN Work Phone: [facility] Comment on above: History of traumatic brain injury (Primary Dx); Dementia, unspecified dementia severity, unspecified dementia type, unspecified whether behavioral, psychotic, or mood disturbance or anxiety (HCC); Cognitive deficits; Impaired mobility and ADLs; 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) Start: 07-22-2024 End: 07-22-2024 Evaluation and management of inpatient CHANDLER PALMA [facility] Start: 07-20-2024 End: 07-20-2024 Telephone encounter Janice Mcdermott MD Work Phone: Neurology Start: 07-18-2024 End: 07-20-2024 Telephone encounter Narciso Guerra MD Work Phone: Neurology Comment on above: Patient Question Start: 07-17-2024 End: 07-18-2024 Telephone encounter Narciso Guerra MD Work Phone: Neurology Comment on above: Patient Question Start: 07-12-2024 End: 07-12-2024 Telephone encounter Kelly Johnson [facility] Neurology Comment on above: patient concern Start: 07-11-2024 ambulatory Danni Graham Facility:[facility] Start: 07-10-[address] [facility] Start: 07-10-2024 End: 07-10-2024 [facility] Start: 07-08-2024 End: 07-08-2024 Evaluation and management of inpatient [facility] Start: 07-08-2024 End: 07-22-2024 Evaluation and management of inpatient [facility] Start: 07-06-2024 End: 07-06-2024 [facility] Start: 07-06-2024 End: 07-22-2024 Evaluation and management of inpatient Nichol Heath MD Work Phone: [facility] - GEN 8 Acute Comment on above: Dementia with behavi oral disturbance ([facility]-HCC) (Primary Dx); Status post colostomy, follow-up exam ([facility]-HCC) Start: 07-03-[address] [facility] Start: 07-03-2024 End: 07-05-2024 Emergency department patient visit JAE Chidi LOPEZ [facility] Start: 06-25-2024 ambulatory Elliott Romeo acility:[facility] Start: 06-24-2024 End: 06-24-2024 Emergency department patient visit MAITE MORRIS [facility] Start: 06-21-2024 End: 06-21-2024 ambulatory Danni Graham [place] Start: 06-21-2024 End: 06-21-2024 Patient encounter procedure Danni MChong Montgomeryioana [facility] Start: 05-02-2024 End: 06-27-2024 Pre-admission assessment Danni MChong Montgomeryioana [facility] Start: 03-15-2024 End: 03-15-2024 Patient encounter procedure MD Jae Lopez Work Phone: [facility] [place] Work Phone: Start: 03-15-2024 End: 03-15-2024 ambulatory MD Jae Lopez Work Phone: [facility] Work Phone: Start: 03-09-2024 End: 03-09-2024 Patient Msg Lisandra Gomez PLUMBING HARDWARE ASSEMBLER.WAITER/WAITRESS TAVERN Work Phone: Neurology Comment on above: refill Start: 03-09-2024 End: 03-09-2024 Refill Agustina Plascencia MD Work Phone: Neurology Comment on above: Refill Request Start: 01-25-2024 End: 01-25-2024 ambulatory Danni Graham Facility: [facility] Start: 01-25-2024 End: 01-25-2024 Off-Site Danni Montgomeryioana [facility] Start: 01-11-2024 End: 01-11-2024 ambulatory Danni Graham Facility:[facility] Start: 01-11-2024 End: 01-11-2024 Patient encounter procedure Danni Graham [facility] Start: 12-21-2023 ambulatory Danni Graham Facility:[facility] Start: 12-06-2023 Refill Agustina orellana MD Work Phone: Neurology Comment on above: Refill Request donepezil refill Start: 03-07-2023 Patient entered into trial Tabby Naqvi [facility] Coord[facility] Start: 03-07-2023 Telephone encounter Tabby locke Research Coordinator Neurology Comment on above: Research ([facility] (IRB [id number])) Start: 02-08-2023 E-mail encounter fro m caregiver Sonal Weinstein APRNChongWAITER/WAITRESS TAVERN Work Phone: [place] Start: 02-08-2023 Follow-up encounter Sonal Beltran PLUMBING HARDWARE ASSEMBLER.WAITER/WAITRESS TAVERN Work Phone: Neurology Comment on above: sleep follow up Start: 02-08-2023 Patient entered into trial Tabby Naqvi Research Coord[facility] Start: 02-08-2023 Telephone encounter Tabby locke Research Coordinator Neurology Comment on above: Research ([facility] (IRB [id number]) Interest) Start: 02-04-2023 Telephone encounter Sonal Beltran PLUMBING HARDWARE ASSEMBLER.WAITER/WAITRESS TAVERN Work Phone: Neurology Comment on above: PAP Therapy Follow U p (12/18/22 - 01/16/[address] FROM DME ) Start: 02-02-2023 Refill Agustina orellana MD Work Phone: Neurology Comment on above: Refill Request Start: 01-13-2023 Telephone encounter Kary Gaxiola RN Work Phone: Neurology Comment on above: Returning Patient's Call Start: 12-03-2022 Telephone encounter Sonal Beltran PLUMBING HARDWARE ASSEMBLER.WAITER/WAITRESS TAVERN Work Phone: Neurology Comment on above: PAP Rx Faxed (DME: [facility] ) Start: 12-02-2022 End: 12-02-2022 Telemedicine consultation with patient Sonal Weinstein WAITER/WAITRESS TAVERN Work Phone: [place] Start: 12-02-2022 End: 12-02-2022 ambulatory Agustina Plascencia MD Work Phone: Neurology Comment on above: Forms from [employer] Obstructive sleep ap carol (Primary Dx); Primary central sleep apnea; Hyperlipidemia, unspecified hyperlipidemia type Start: 12-02-2022 E-mail encounter fro m caregiver Agustina Plascencia MD Work Phone: [facility] Start: 11-17-2022 End: 11-17-2022 ambulatory Agustina Plascencia MD Work Phone: Neurology Comment on above: Alzheimer's disease (HCC) (Primary Dx) Start: 11-17-2022 End: 11-17-2022 Telemedicine consultation with patient Agustina Plascencia MD Work Phone: [facility] Start: 10-21-2022 End: 10-22-[address] JAE LOPEZ . Facility: Start: 10-12-2022 End: 10-12-2022 Patient encounter procedure Miguelito Chicas APRN.WAITER/WAITRESS TAVERN Work Phone: Neurology Comment on above: Memory loss (Primary Dx); Encounter for lumbar puncture Start: 10-12-2022 End: 10-12-2022 Patient encounter status Miguelito Chicas APRN.WAITER/WAITRESS TAVERN Work Phone: Neurology Start: 08-12-2022 Chart abstracting Leah Mckeon RN Ne urology Start: 08-11-2022 End: 08-11-2022 ambulatory Agustina Plascencia MD Work Phone: Neurology Comment on above: Memory loss (Primary Dx) Start: 08-11-2022 End: 08-11-2022 Telemedicine consultation with patient Agustina Plascencia MD Work Phone: [facility] Start: 08-10-2022 E-mail encounter chris m caregiver [facility] Provider MARY [facility] Start: 08-10-2022 Patient encounter procedure [facility] Provider Neurology Comment on above: cancel appointment Start: 07-21-2022 End: 07-21-2022 ambulatory Agustina Plascencia MD Work Phone: Neurology Comment on above: Memory loss Start: 07-21-2022 End: 07-21-2022 Telemedicine consultation with patient Agustina Plascencia MD Work Phone: [facility] Start: 05-07-2022 ambulatory NARCISO GUERRA Facility:[facility] Start: 05-07-2022 End: 05-07-2022 Subsequent hospital visit by physician [facility] (Istat/3t) Work Phone: [facility] MRI Comment on above: Cognitive changes [R 41.89] Start: 04-30-2022 End: 04-30-2022 Patient encounter procedure Gera Cardona DO Work Phone: Neurology Comment on above: SHELBY (obstructive sle ep apnea) (Primary Dx) Start: 04-28-2022 ambulatory Narciso Guerra MD Work Phone: Neurology Comment on above: sleep study results Start: 04-28-2022 E-mail encounter chris m caregiver Narciso Guerra MD Work Phone: [facility] Start: 04-27-2022 ambulatory Narciso Guerra MD Work Phone: Neurology Comment on above: lab results Start: 04-27-2022 E-mail encounter fro m caregiver Narciso Guerra MD Work Phone: [facility] Start: 04-25-2022 Chart abstracting Roosevelt Merlos MD Work Phone: Neurology Start: 04-22-2022 End: 04-22-2022 Office outpatient visit 15 minutes Brenda Blanco APRN.WAITER/WAITRESS TAVERN Work Phone: [employer] [facility] Comment on above: Bilateral impacted c [...] Evaluation and management of inpatient JAE LOPEZ Facility:[facility] Start: 07-21-2020 End: 07-23-2020 ambulatory NAYA IZAGUIRRE Facility:[facility] Procedures Date Procedure Procedure Detail Performing Clinician Start: 11-06-2024 Follow-up visit Follow-up JAZ AMADOR Start: 10-15-2024 Adult depression screening assessment Rachele Lopez MD Work Phone: Start: 07-17-2024 Basic metabolic pane l calcium [...] Start: 07-07-2024 Ct head/brain w/o contrast material Elana Valerio MD Work Phone: Start: 07-06-2024 EEG Elana Valerio MD Work Phone: Start: 07-06-2024 Basic metabolic pane l calcium total Nichol Heath MD Work Phone: Start: 03-15-2024 MR prostate wo/w con MD Jae Lopez Work Phone: Start: 10-12-2022 TOURTELLOTTE BLOOD Og zaina Aviva PLUMBING HARDWARE ASSEMBLER.WAITER/WAITRESS TAVERN Work Phone: Start: 10-12-2022 Cell count misc body fluids w/differential count Miguelito Aviva PLUMBING HARDWARE ASSEMBLER.WAITER/WAITRESS TAVERN Work Phone: Start: 10-12-2022 CSF MANUAL DIFF Miguelito Aviva PLUMBING HARDWARE ASSEMBLER.WAITER/WAITRESS TAVERN Work Phone: Start: 10-12-2022 Glucose body fluid o ther than blood Miguelito Aviva PLUMBING HARDWARE ASSEMBLER.WAITER/WAITRESS TAVERN Work Phone: Start: 05-07-2022 MRI 3D POST [...] of inguinal hernia using synthetic patch Danni Montgomeryioana Start: 11-18-2018 Sigmoidostomy Danni Graham Start: 09-20-2018 Partial resection of colon Danni Graham Start: 01-05-2016 Biopsy of prostate Margarita Graham Comment on above: by Dr. Amato Extraction of cataract Danni Santos H/O: colostomy Status post colostomy, follow-up exam ([facility]) Nichol Heath MD Work Phone: Repair of artery Danni Graham Plan of Treatment Date Care Activity Detail Author Start: 11-23-2029 DTaP,Tdap and Td Vaccines (2 - Td or Tdap) DTaP,Tdap and Td Vaccines (2 - Td or Tdap) [facility] Start: 11-23-2029 Urine microalbumin profile DTaP,Tdap,Td Vaccine (2 - Td or Tdap) [facility] Start: 07-17-2027 Diabetes Screening Diabetes Screenin g [facility] Start: 11-06-2025 Adult BMI Screening Adult BMI Screen ing [facility] Start: 11-06-2025 Tobacco Screening Tobacco Screening [facility] Start: 10-24-2025 Adult BMI Screening Adult BMI Screen ing [facility] Start: 10-22-2025 Adult BMI Screening Adult BMI Screen ing [facility] Start: 10-16-2025 Tobacco Screening Tobacco Screening [facility] Start: 10-15-2025 Adult BMI Follow Up Plan Adult BMI Follow Up Plan [facility] Start: 10-15-2025 Adult BMI Screening Adult BMI Screen ing [facility] Start: 10-15-2025 Depression Screening Depression Scre ening [facility] Start: 10-15-2025 Tobacco Screening Tobacco Screening [facility] Start: 07-11-2025 Tobacco Screening Tobacco Screening [facility] Start: 07-10-2025 Adult BMI Screening Adult BMI Screen ing [facility] Start: 04-22-2025 DIABETES SCREEN DIABETES SCREEN [facility] Start: 04-22-2025 Diabetes Screening Diabetes Screenin [facility] Start: 04-22-2025 End: 04-22-2025 Patient encounter procedure 04/22/2025 2:00 PM EST Office Visit [facility], A Department of [address] [place] [id number] Rachele Lopez MD [address] [place] [address] [address] [place] [address] [facility] Neurology, A Department of [facility] Start: 04-10-2025 End: 04-10-2025 Patient encounter procedure 04/10/2025 12:30 PM EDT Appointment [facility] MRI [address] [place] [id number] Gaurang Corrales MD [address] [facility] [address] [place], [place] [address] [facility] - MRI Start: 03-27-2025 End: 03-27-2025 Patient encounter procedure 03/27/2025 1:15 PM EDT Procedure visit [facility] On [address] [id number] [facility] On [facility] Start: 02-18-2025 Influenza vaccination Influenza Vacc ine [facility] Start: 01-17-2025 End: 07-20-2025 MR Brain WO and W contrast IV MR brain with and without contrast Imaging Routine Dementia with behavioral disturbance (CMS-HCC) Expected: 01/17/2025 (Approximate), Expires: 07/20/2025 [facility] Work Phone: Comment on above: Expected: 01/17/2025 (Approximate), Expires: 07/20/2025 Start: 12-18-2024 End: 12-18-2024 Patient encounter procedure 12/18/2024 2:10 PM EDT Office Visit [facility] [address] [place] [phone] Beto Villar MD [address] [facility] [address] [place] [address] [facility] Start: 12-18-2024 End: 12-18-2025 MR Brain WO and W contrast IV MR brain with and without contrast Imaging Routine Dementia with behavioral disturbance (CMS-HCC) Expected: 12/18/2024, Expires: 12/18/2025 [facility] Work Phone: Comment on above: Expected: 12/18/2024 , Expires: 12/18/2025 Start: 11-06-2024 End: 11-06-2024 Patient encounter procedure 11/06/2024 1:45 PM EDT Office Visit [facility] [address] [phone] Jaz Art PA-C [address] [place] [address] [facility] Start: 10-31-2024 End: 10-31-2024 Patient encounter procedure 10/31/2024 4:30 PM EDT Office Visit [facility] [address] [address] Isak Elliott MD [address] [place], [place] [id number] 3mo f/u [facility] Comment on above: 3mo f/u Start: 08-15-2024 End: 08-15-2024 ambulatory 08/15/2024 9:30 AM EST OT/PT/Speech Visit [facility] [address] [place] [phone] Shweta Hi, [facility]-CLIP LOADING MACHINE ADJUSTER [address] [place] [address] History of traumatic brain injury [Z87.820] [facility] Comment on above: History of traumatic brain injury [Z87.820] Start: 07-30-2024 End: 07-30-2024 Patient encounter procedure 07/30/2024 12:40 PM EST Office Visit [facility] [address] [place] [address] Fidelina Fisher, PLUMBING HARDWARE ASSEMBLER.WAITER/WAITRESS TAVERN [address] [place] [address] TBI (Traumatic Brain Injury) [facility] Comment on above: TBI (Traumatic Brain Injury) Start: 02-19-2024 Covid-19 Vaccine () Covid-19 Vaccine () [facility] Start: 02-19-2024 COVID-19 Vaccine () COVID-19 Vaccine () [facility] [facility] Start: 02-19-2024 Influenza vaccination [facility] Start: 06-20-2023 Behavioral Health Screening Behavioral Health Screening [facility] Start: 02-18-2023 Covid-19 Vaccine () Covid-19 Vaccine () [facility] Start: 02-18-2023 Influenza vaccination [facility] Start: 10-12-2022 End: 12-12-2022 ADMARK PHOSPHO-TAU TOTAL-TAU/AB42 CSF [facility] Work Phone: Comment on above: Expected: 10/12/2022 , Expires: 12/12/2022 Start: 10-12-2022 End: 12-12-2022 Reagin Ab [Titer] in Cerebral spinal fluid by VDRL [facility] Work Phone: Comment on above: Expected: 10/12/2022 , Expires: 12/12/2022 Start: 08-11-2022 End: 10-11-2022 Cell count panel - Cerebral spinal fluid CSF CELL COUNT Lab Routine Memory loss Expected: 08/11/2022, Expires: 10/11/2022 [facility] Work Phone: Comment on above: Expected: 08/11/2022 , Expires: 10/11/2022 Start: 08-11-2022 End: 10-11-2022 Glucose [Mass/volume] in Cerebral spinal fluid GLUCOSE CSF Lab Routine Memory loss Expected: 08/11/2022, Expires: 10/11/2022 [facility] Work Phone: Comment on above: Expected: 08/11/2022 , Expires: 10/11/2022 Start: 08-11-2022 End: 10-11-2022 MISC SEND OUT TST 1 MISC SEND OUT TST 1 Lab Routine Memory loss Expected: 08/11/2022, Expires: 10/11/2022 [facility] Work Phone: Comment on above: Expected: 08/11/2022 , Expires: 10/11/2022 Start: 08-11-2022 End: 10-11-2022 Protein [Mass/volume] in Cerebral spinal fluid PROTEIN CSF Lab Routine Memory loss Expected: 08/11/2022, Expires: 10/11/2022 [facility] Work Phone: Comment on above: Expected: 08/11/2022 , Expires: 10/11/2022 Start: 08-11-2022 End: 10-11-2022 Reagin Ab [Titer] in Cerebral spinal fluid by VDRL VDRL CSF Lab Routine Memory loss Expected: 08/11/2022, Expires: 10/11/2022 [facility] Work Phone: Comment on above: Expected: 08/11/2022 , Expires: 10/11/2022 Start: 08-11-2022 End: 10-11-2022 TOURTELLOTTE BLOOD TOURTELLOTTE BLOOD Lab Routine Memory loss Expected: 08/11/2022, Expires: 10/11/2022 [facility] Work Phone: Comment on above: Expected: 08/11/2022 , Expires: 10/11/2022 Start: 06-20-2022 DEPRESSION ASSESSMENT DEPRESSION ASS ESSMENT [facility] Start: 02-18-2022 Influenza vaccination INFLUENZA (#1) [facility] Start: 06-20-2021 DEPRESSION ASSESSMENT DEPRESSION ASS ESSMENT [facility] Start: 05-29-2021 COVID-19 VACCINE (3 - Booster for Pfizer series) COVID-19 VACCINE (3 - Booster for Pfizer series) [facility] Start: 05-29-2021 COVID-19 VACCINE (3 - Pfizer series) COVID-19 VACCINE (3 - Pfizer series) [facility] Start: 2020 PROSTATE CANCER SCREENING DISCUSSION PROSTATE CANCER SCREENING DISCUSSION [facility] Start: 2020 Prostate specific antigen measurement Prostate Cancer Screening Discussion [facility] Start: 2015 Administration of varicella zoster vaccine Zoster (Shingles) Vaccine (1 of 2) [facility] Start: 2015 Pneumococcal Vaccine : 50+ (1 of 1 - PCV) Pneumococcal Vaccine: 50+ (1 of 1 - PCV) [facility] Start: 2015 SHINGRIX VACCINE (1 of 2) SHINGRIX VACCINE (1 of 2) [facility] Start: 2010 COLOGUARD (FIT-DNA) COLOGUARD (FIT-D NA) [facility] Start: 2010 Colonoscopy COLONOSCOPY [facility] Start: 2010 COLORECTAL CANCER SCREENING COLORECTAL CANCER SCREENING [facility] Start: [address] COLONOGRAPHY [facility] Start: 2010 DIABETES SCREEN DIABETES SCREEN [facility] Start: 2010 FECAL OCCULT BLOOD FECAL OCCULT BLOO D [facility] Start: 2010 Screening for malign ant neoplasm of colon [facility] Start: 2010 SIGMOIDOSCOPY SIGMOIDOSCOPY [facility] Start: 2000 Lipid 1996 panel - S flakita or Plasma Lipid Screening [facility] Start: 2000 Lipid panel Lipid Screening [facility] Start: 2000 LIPID SCREEN LIPID SCREEN [facility] Start: 1984 Hepatitis B Vaccine (1 of 3 - 19+ 3-dose series) Hepatitis B Vaccine (1 of 3 - 19+ 3-dose series) [facility] Start: 1984 Urine microalbumin profile [facility] Start: 1983 Adult BMI Follow Up Plan Adult BMI Follow Up Plan [facility] Start: 1983 Anxiety Screening Anxiety Screening [facility] Start: 1983 Depression Screening Depression Scre [facility] Start: 1983 HEPATITIS C SCREENING HEPATITIS C [facility] Start: 1983 Hepatitis C screening Hepatitis C [facility] Start: 1983 HIV SCREENING HIV SCREENING [facility] Start: 1977 Depression Screening Depression Scre [facility] Start: 1965 HEPATITIS B (1 of 3 - 3-dose series) HEPATITIS B (1 of 3 - 3-dose series) [facility] Start: 1965 Hepatitis B Vaccine (1 of 3 - 3-dose series) Hepatitis B Vaccine (1 of 3 - 3-dose series) [facility] End: 07-06-2024 ECG 12 lead ECG 12 lead ECG Routine Once for 1 Occurrences starting 07/06/2024 until 07/06/2024 Work4 Comment on above: Once for 1 Occurrenc es starting 07/06/2024 until 07/06/2024 End: 10-15-2025 EEG EEG Neurology Routine Dementia with behavioral disturbance (CMS-HCC) Episode of confusion 1 Occurrences starting 10/15/2024 until 10/15/2025 [employer] Work Phone: Comment on above: 1 Occurrences starti ng 10/15/2024 until 10/15/2025 End: 08-11-2023 LUMBAR PUNCTURE/YESICA LUMBAR PUNCTURE/YESICA NEUROLOGY Routine Memory loss 1 Occurrences starting 08/11/2022 until 08/11/2023 [facility] Work Phone: Comment on above: 1 Occurrences starti ng 08/11/2022 until 08/11/2023 End: 10-13-2023 LUMBAR PUNCTURE/YESICA LUMBAR PUNCTURE/YESICA NEUROLOGY Routine Memory loss 1 Occurrences starting 10/12/2022 until 10/13/2023 [facility] Work Phone: Comment on above: 1 Occurrences starti ng 10/12/2022 until 10/13/2023 Oxygen Therapy - Maintain SpO2: 90%; *PROGRESS WORKER Guidelines for O2: Yes; Document: \[email or web address]\epi c\EPIC_Reference\Orders\ Respiratory Care Guidelines\CPG Oxygen 2022.pdf Oxygen Therapy - Maintain SpO2: 90%; *PROGRESS WORKER Guidelines for O2: Yes; Document: \[email or web address]\ep ic\EPIC_Reference\Order s\Respiratory Care Guidelines\CPG Oxygen 2022.pdf Respiratory Care Routine As Needed until discontinued starting 07/06/2024 Work4 Comment on above: As Needed until disc ontinued starting 07/06/2024 End: 01-01-2024 PAP TITRATION PSG (CPAP, BIPAP, ASV) PAP TITRATION PSG (CPAP, BIPAP, ASV) Procedures Routine Obstructive sleep apnea 1 Occurrences starting 12/02/2022 until 01/01/2024 [facility] Work Phone: Comment on above: 1 Occurrences starti ng 12/02/2022 until 01/01/2024 End: 07-09-2024 Prion Markers, Creutzfeldt-Osei Disease(14-3-3 Protein Tau, Total), CSF [facility] Work Phone: Comment on above: Once for 1 Occurrenc es starting 07/09/2024 until 07/09/2024 End: 07-06-2024 Pulse oximetry, spot On current oxygen flow Pulse oximetry, spot On current oxygen flow Respiratory Care Routine Once for 1 Occurrences starting 07/06/2024 until 07/06/2024 [facility] Work Phone: Comment on above: Once for 1 Occurrenc es starting 07/06/2024 until 07/06/2024 Removal impacted cer umen irrigation/lvg unilat AMBULATORY EAR LAVAGE/IRRIGATION Procedures Routine Bilateral impacted cerumen Ordered: 04/22/2022 [facility] Work Phone: Comment on above: Ordered: 04/22/2022 TOURTELLOTTE CSF TOURTELLOTTE CS F Lab Routine Memory loss Ordered: 08/11/2022 [facility] Work Phone: Comment on above: Ordered: 08/11/2022 [facility] Immunizations Immunization Date Immunization Notes Care Provider Genna amaro 11-24-2019 tetanus toxoid, redu zenia diphtheria toxoid, and acellular pertussis vaccine, adsorbed Kelly Johnson [facility] Payers Date Payer Category Payer Medicare [facility] MEDICARE [facility] [place] PPO [id number] 2024-Present [phone] [address] [place] [id number] PPO [id number] 2024 Medicare HMO [id number] 2024 Private Health Insurance DEVOTED MEDICARE [id number] 2024 Medicare [id number] 2024 Self-pay 2024 Unknown [id number] 2024 Unknown [id number] 2021 Unknown [id number] 1.13.159.2. [id number] 1965 Unknown [id number] 2.16.840.1.745910.3.579.2. 647 1965 Unknown [id number] 2.16.840.1.246030.3.579.2. 647 1965 Unknown [id number] 2.16.840.1.417773.3.579.2. 593 1965 Unknown [id number] 2.16.840.1.329460.3.579.2. 593 1965 Unknown [id number] 2.16.840.1.710787.3.579.2. 593 1965 Unknown [id number] 2.16.840.1.108408.3.579.2. 1286 1965 Unknown [id number] 2.16.840.1.550345.3.579.2. 727 1965 Unknown [id number] 2.16.840.1.176894.3.579.2. 727 1965 Unknown [id number] 2.16.840.1.157537.3.579.2. 727 1965 Unknown [id number] 2.16.840.1.816522.3.579.2. 1285 1965 Unknown [id number] 2.16.840.1.118000.3.579.2. 1285 1965 Unknown [id number] 2.16.840.1.086924.3.579.2. 1285 1965 Unknown [id number] 2.16.840.1.094108.3.579.2. 1285 1965 Unknown [id number] 2.16.840.1.103188.3.579.2. 1285 1965 Unknown [id number] 2.16840.1.420259.3.579.2. 1285 1965 Unknown [id number] 2.16840.1.867735.3.579.2. 1285 1965 Unknown [id number] 2.16.840.1.578025.3.579.2. 1285 1965 Unknown [id number] 2.16.840.1.899209.3.579.2. 1285 1965 Unknown [id number] 2.16.840.1.899732.3.579.2. 1285 1965 Unknown [id number] 2.16.840.1.681602.3.579.2. 1285 1965 Unknown [id number] 2.16.840.1.544324.3.579.2. 1285 1965 Unknown [id number] 2.16.840.1.702280.3.579.2. 1285 1965 Unknown [id number] 2.16.840.1.772078.3.579.2. 1286 1965 Unknown [id number] 2.16.840.1.572444.3.579.2. 1286 1965 Unknown [id number] 2.16.840.1.588175.3.579.2. 1286 1965 Unknown [id number] 2.16.840.1.203399.3.579.2. 1286 1965 Unknown [id number] 2..840.1.047350.3.579.2. 1286 1959 Unknown [id number] 1959 Unknown [id number] Unknown [id number] 2.16.840.1.363367.3.579.2. 531 Unknown [id number] 2.16.840.1.988545.3.579.2. 531 Social History Date Type Detail Facility Start: 04-22-2022 End: 11-06-2024 Tobacco smoking status NHIS Never smoked tobacco [facility] Start: 04-22-2022 End: 11-06-2024 Tobacco use and exposure Smokeless tobacco non-user [facility] Start: 04-22-2022 End: 07-30-2024 Alcohol intake Ex-drinker (finding) [facility] Start: 1965 Sex Assigned At Not on file [facility] Start: 04-12-2022 End: 05-07-2022 Exposure to SARS-CoV-2 (event) Not sure [facility] Start: 07-31-2020 End: 10-12-2022 History of Social function [facility] Start: 07-31-2020 End: 10-12-2022 Tobacco use panel [facility] Adult Depression Screening Assessment 2 [facility] Start: 1965 Sex Assigned At Male F [facility] Start: 07-11-2024 End: 11-06-2024 Alcoholic beverage intake Current non-drinker of alcohol (finding) [facility] Start: 01-23-2015 Sex Male (finding) [facility] Has the electric, [employer], [employer], or water [employer] threatened to shut off services in your home in past 12Mo No [facility] Medical Equipment Procedure Code Equipment Code [...] progress towards goal: TBI center vs IPR Personal health goal Comment on above: Formatting of this n ote might be different from the original. Evaluation of progress towards goal: home with family support Personal health goal Functional Status Date Assessment Result Facility 06-21-2024 Functional Status No [facility] 01-11-2024 Functional Status N/A [facility] Mental Status Date Assessment Result Facility [facility] Clinical Notes 07-24-2020 to 12-18-2024 Telephone Encounter - Roberta Bui RN - 12/18/2024 11:44 AM EDTTelephone Encounter - Roberta Bui RN - 12/18/2024 11:44 AM EDTJaz Art PA-C - 11/06/2024 1:45 PM EDTPatient InstructionsAttachments Note Date & Type Note Facility 12-18-2024 Miscellaneous Notes Kari calls stating that Estella needed to be sedated for his last MRI due to anxiety. Discussed options and ultimately, decision for MRI with anesthesia is to be ordered due to his issues. documented in this encounter [facility] 12-18-2024 Telephone encounter Note Kari calls stating that Estella needed to be sedated for his last MRI due to anxiety. Discussed options and ultimately, decision for MRI with anesthesia is to be ordered due to his issues. [facility] 11-06-2024 History of Present illness Narrative Estella Jeffery Date of visit: 11/06/2024 Date of : 1965 Age: 59 y.o. Patient Active Problem List Diagnosis Laceration of left ulnar artery Dementia with behavioral disturbance ([facility]) Altered mental status Status post colostomy, follow-up exam ([facility]) Bradycardia Orthostatic hypotension Allergies Allergen Reactions Ativan [Lorazepam] Abnormal Behavior Diphenhydramine Abnormal Behavior Current Outpatient Medications Medication Sig Dispense Refill cyproheptadine (PERIACTIN) 4 mg tablet Take 1 tablet (4 mg total) by mouth in the morning and at bedtime. divalproex sprinkle (DEPAKOTE SPRINKLE) 125 mg capsule Take 4 capsules (500 mg total) by mouth in the morning and 4 capsules (500 mg total) before bedtime. Do all this for 30 days. Morning and evening. 240 capsule 0 divalproex sprinkle (DEPAKOTE SPRINKLE) 125 mg capsule Take 2 capsules (250 mg total) by mouth at noon for 30 days. 60 capsule 0 donepeziL (ARICEPT) 10 mg tablet Take 1 tablet (10 mg total) by mouth nightly. DULoxetine (CYMBALTA) 30 mg capsule Take 1 capsule (30 mg total) by mouth. melatonin 10 mg tablet Take 1 tablet by mouth nightly. pantoprazole (PROTONIX) 40 mg EC tablet Take 1 tablet (40 mg total) by mouth in the morning. QUEtiapine (SEROquel) 200 mg tablet Take 1.5 tablets (300 mg total) by mouth nightly. QUEtiapine (SEROquel) 50 mg tablet Take 1 tablet (50 mg total) by mouth in the morning and 1 tablet (50 mg total) before bedtime. Takes one tablet in the morning and one tablet at noon. FREESTYLE 28 gauge lancets (Patient not taking: Reported on 11/06/2024) FREESTYLE LITE METER kit (Patient not taking: Reported on 11/06/2024) midodrine (PROAMATINE) 2.5 mg tablet Take 1 tablet (2.5 mg total) by mouth 2 (two) times a day for 120 days. Hold for systolic bp over 110 60 tablet 3 No current facility-administered medications for this visit. Chief Complaint Patient presents with Follow-up EST PT HOSP FU BRADYCARDIA SCHED W/ History of Present Illness Estella Jeffery patient is a 59-year-old male with a past medical history of hyperlipidemia, GERD, advanced early dementia Presents today with family who assisted in the history, previously patient had a syncopal event Reportedly patient got up to walk to the bathroom in the middle of the night, he felt nauseous heart rate was found to be in the 30s and patient got 2 doses of atropine, EKG on admission shows sinus bradycardia with a rate of 57. Follow up that this was vasovagal in the setting of vomiting, given no reoccurrence follow up no further cardiac testing needed. Patient in who assisted in the history no further episodes of syncope however he continues to get dizzy when 1st standing, no chest pain shortness of breath no significant dyspnea on exertion. He has had near syncopal events in the past as well, that appear to be related to nausea. The patient echocardiogram noted preserved EF of 60-65% with no significant valvular disease Past Medical History: Diagnosis Date GERD (gastroesophageal reflux disease) High cholesterol Perforated sigmoid colon (CMS-HCC) No data recorded No data recorded No data recorded Past Surgical History: Procedure Laterality Date ARM EXPLORATION WITH REPAIR LACERATED ULNAR ARTERY Left 11/24/2019 Performed by Skyler Bowen MD at [facility] COLONOSCOPY JANICE 3YEARS AGO COLOSTOMY CLOSURE PUNCTURE LUMBAR N/A 07/10/2024 Performed by Zach Nails MD at [facility] Family History Problem Relation Age of Onset Breast cancer Sister Social History Socioeconomic History Marital status: Spouse [...] on file Food Insecurity: No Food Insecurity (10/22/2024) Hunger Screening Food Insecurity - Worry: Never True Food Insecurity - Inability: Never True Transportation Needs: No Transportation Needs (10/19/2024) PRAPARE - Transportation Lack of Transportation (Medical): No Lack of Transportation (Non-Medical): No Physical Activity: Not on file Stress: Not on file Social Connections: Not on file Interpersonal Safety: Patient Unable To Answer (10/19/2024) Humiliation, Afraid, Rape, and Kick questionnaire Fear of Current or Ex-Partner: Patient unable to answer Emotionally Abused: Patient unable to answer Physically Abused: Patient unable to answer Sexually Abused: Patient unable to answer Housing Instability: Low Risk (10/19/2024) Housing Instability Housing Instability: No Review of Systems Review of Systems Constitutional: Negative for malaise/fatigue. HENT: Negative for hearing loss. Eyes: Negative for double vision. Respiratory: Negative for cough, shortness of breath and wheezing. Hematologic/Lymphatic: Does not bruise/bleed easily. Musculoskeletal: Negative for joint pain, joint swelling and muscle cramps. Gastrointestinal: Negative for bloating, abdominal pain and diarrhea. Genitourinary: Negative for hematuria. Neurological: Positive for light-headedness. Negative for dizziness and headaches. CARDIOVASCULAR: Please review HPI. Physical Examination General appearance: Alert, oriented and cooperative. In no acute distress. Skin: Warm and dry to touch. Head: Normocephalic, without obvious abnormality, atraumatic. Ears, Nose, Mouth, Throat: Throat clear without erythema or exudate. Dentition intact. Eyes: Conjunctivae unremarkable, EOM intact. Neck: No JVD Respiratory: Clear to auscultation bilaterally, no use of accessory muscles. Cardiovascular: RRR with normal S1 and S2 with no murmurs. Gastrointestinal: Soft, non-tender. Bowel sounds normal. Musculoskeletal: No peripheral edema. Neurologic: Oriented to time, person and place, affect appropriate. No focal/major motor defects noted. Psychiatric: Appropriate mood, memory and judgement. VITAL SIGNS: BP 132/80 Pulse 71 Ht 165.1 cm (5' 5 ) Wt 74.8 kg (165 lb) SpO2 96% BMI 27.46 kg/m Orders Placed or Reconciled This Encounter Medications midodrine (PROAMATINE) 2.5 mg tablet Sig: Take 1 tablet (2.5 mg total) by mouth 2 (two) times a day for 120 days. Hold for systolic bp over 110 Dispense: 60 tablet Refill: 3 Medications Discontinued During This Encounter Medication Reason midodrine (PROAMATINE) 2.5 mg tablet Reorder IMPRESSIONS/PLAN 1. Orthostatic hypotension Lying down 138/92, sitting 132/80, standing 122/80 -meet criteria per diastolic drop from lying to standing -is currently taking midodrine 2.5 mg for once systolic blood pressure is less than 110 this has been assisting with the dizziness -I educated patient on high fluid intake and increased salt intake 2. Sinus bradycardia 3. Vasovagal syncope -discussed if has a repeat event reasonable to obtain 30 day wireless telemetry 4. History of early-onset Alzheimer's dementia underwent testing at [facility] Patient is stable from a cardiovascular standpoint he may follow up in about 9 months or sooner as needed. TODAYS ORDERS No orders of the defined types were placed in this encounter. FOLLOW UP Return in about 1 year (around 11/06/2025). PCP: JAE LOPEZ MD Referring Physician: Jae Lopez MD [address] [place] [address] Jaz Art PA-C 11/06/24 1511 documented in this encounter [facility] 11-06-2024 Instructions Jaz Art PA-C - 11/06/2024 1:45 PM EDT Oral fluid intake should be encouraged to a target of 3 L daily and high salt intake sodium about 5-6 Studies show that reclined aerobic exercise, such as swimming, rowing and recumbent bicycling, has the best results. Strengthening your core and leg muscles is also helpful. lower extremity resistance strength training, which helps to reduce venous pooling Develop physical habits to reduce triggering symptoms. As examples, lower extremity muscle tensing, leg crossing, and weight shifting engage the skeletal muscle pump to improve venous return and can provide immediate temporary symptom relief. Improve sleep quality by having a consistent bedtime and wake time, not spending time in bed during the day, winding down prior to going to bed, and ensuring that the bedroom environment promotes sleep Graded compressive stockings - START AT 15-20mmHg may need to increase compression Can use midodrine as needed Follow up in 9 months documented in this encounter [facility] 10-23-2024 Miscellaneous Notes Contract: PPCRD [phone] [place] [id number] edel herron ---I sent a secure chat message to Shayla Haynes documented in this encounter [facility] 10-23-2024 Telephone encounter Note Contract: PPCRD [phone] [facility] room [id number] tx germaine ---I sent a secure chat message to Shayla Haynes [facility] 10-15-2024 History of Present illness Narrative Chief Complaint Patient presents with New Patient HPI Mr. Jeffery is a 59 year old male presenting for an evaluation. He is accompanied by his sister and who provide all the historical details. Mr. Jeffery is unable to answer questions appropriately. He may utter sentences that are by themselves understandable but unrelated to the topic being discussed. He has a history of dementia and had previously been seeing neurology at the [facility]. His last clinic visit related to this was through a telemedicine encounter on 11/17/[address] Agustina Plascencia. Based on that note Mr. Jeffery noticed more significant memory issues around 2021. 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 He was note to forget a clip/tie for his gun one day. He also failed firearm safety training which is required routinely. There is no known family history of neurodegenerative conditions. Patient had quit drinking alcohol 20 years ago and denies other drug use. Biomarkers done at that time were abnormal and noted below. Aricept and namenda were started and consideration for a research study were suggested. Mr. Jefferys indicates they did not follow up with neurology again. Mr. Jeffery was admitted to the [facility] on 07/20/2024 - 07/20/2024 after experiencing more significant cognitive decline after a fall. He was reportedly more agitated and had psychosis. Depakote sprinkles were started with benefit. Seroquel also started. No psychiatry follow up at this time. This was discussed and a referral will be made. Incidental finding on MRI brain of a colloid cyst. Mr. Jeffery's is not aware of a neurosurg follow up. This will be placed if not done. An LP was done during the inpatient negative for meningitis, Lyme VDRL, HIV, autoimmune panel, prion markers. Positive TANNER virus antibody. Currently Mr. Jeffery is living at home with his . He is ambulatory without assistance. He needs reminders for hygienic activity and is not driving. Presently no aggressive behaviours however may get frustrated and angry at times. Primary caregiver is his . Social service was offered to contact her to discuss resources in the community to help her. She would like to defer that for now. No swallowing difficulty. Pertinent records reviewed: MRI brain with and without contrast 07/10/2024: Findings: The high attenuation focus shown on [...] and cranio-cervical junction. Flow voids documented in [place] of [place] and dural venous sinuses. No [...] are no enhancing or aggressive brain lesions. EEG 07/08/2024: Significant Findings: - Sustained regional slowing: Not [...] and subcortical systems. Clinical correlation is recommended. Labs 07/17/2024: Mag 2.2, sodium 141, potassium 4.3, chloride 104, CO2 33, BUN 20, Creatinine 0.95, glucose 97, calcium 8.8 WBC 4.1, hemoglobin 13.9, hematocrit 41.8, platelets 180 From [facility] note dated 11/17/2022 : MRI 2021: No evidence of an acute intracranial process or intracranial mass. Severe generalized volume loss. Hippocampal volumes at the first percentile when compared to age matched normal controls by quantitative analysis. Mild white matter disease which is nonspecific but likely reflective of chronic microvascular ischemia. No evidence of parenchymal microhemorrhages by MRI 10/2022 - biomarkers. INTERPRETATION: Alzheimer Disease TEST: A-beta 42 TECHNICAL RESULT: 405.2 pg/mL REFERENCE RANGE: Not consistent with AD: P-Tau <54 pg/mL and ATI >1.2, Borderline: P-Tau 54-68 pg/mL and/or ATI 0.8-1.2, AD: P-Tau >68 pg/mL and ATI <0.8 INTERPRETATION: TEST: T-Tau TECHNICAL RESULT: 1089.85 pg/mL REFERENCE RANGE: INTERPRETATION: TEST: P-Tau TECHNICAL RESULT: 121.45 pg/mL REFERENCE RANGE: INTERPRETATION: TEST: ATI TECHNICAL RESULT: 0.27 REFERENCE RANGE: Review of Systems Unable to answer questions on ROS. Patient Active Problem List Diagnosis Laceration of left ulnar artery Dementia with behavioral disturbance ([facility]) Altered mental status Status post colostomy, follow-up exam ([facility]) Past Surgical History: Procedure Laterality Date ARM EXPLORATION WITH REPAIR LACERATED ULNAR ARTERY Left 11/24/2019 Performed by Skyler Bowen MD at [facility] COLONOSCOPY JANICE 3YEARS AGO COLOSTOMY CLOSURE PUNCTURE LUMBAR N/A 07/10/2024 Performed by aZch Nails MD at [facility] Family History Problem Relation Age of Onset Breast cancer Sister Social History Socioeconomic History Marital status: Spouse [...] Instability Housing Instability: Patient unable to answer Current Outpatient Medications on File Prior to Visit Medication Sig Dispense Refill acetaminophen (TYLENOL EXTRA STRENGTH) 500 mg tablet Take 1 tablet (500 mg total) by mouth every 6 (six) hours as needed for pain. divalproex sprinkle (DEPAKOTE SPRINKLE) 125 mg capsule TAKE 4 CAPSULES BY MOUTH EVERY 12 HOURS FOR 30 DAYS. donepeziL (ARICEPT) 5 mg tablet Take 1 tablet (5 mg total) by mouth nightly. DULoxetine (CYMBALTA) 30 mg capsule Take 1 capsule (30 mg total) by mouth. QUEtiapine (SEROquel) 50 mg tablet Take 3 tablets (150 mg total) by mouth nightly AND 1 tablet (50 mg total) daily. 90 tablet 0 FREESTYLE 28 gauge lancets (Patient not taking: Reported on 10/15/2024) FREESTYLE LITE METER kit (Patient not taking: Reported on 10/15/2024) No current facility-administered medications on file prior to visit. Allergies Allergen Reactions Diphenhydramine Abnormal Behavior Vitals: 10/15/24 1444 BP: 93/61 Pulse: 100 Physical Exam: Mental Status: Orientation: Oriented to person. Says his name but cannot answer other questions. Level of consciousness: alert. Attention span is abnormal. Concentration is abnormal. Speech: Utters a few understandable sentences like I would like to go home or you know who I am but cannot answer directed questions or give appropriate answers. . Language: Normal. Comprehension limited. Cranial Nerves: CN II: Visual montez full to confrontation. CN III, IV, : CN III: EOM full, no nystagmus and no ptosis. CN VII: Facial expression fully symmetric. CN VIII: CN VIII normal. CN IX, X: CN IX and X normal. CN XI: CN XI normal. CN XII: CN XII normal. Motor: Muscle Bulk: Normal. Muscle Strength: Moves all extremities symmetrically. Gait/Coord/DTR: Casual gait with normal base and stride and without ataxia or circumduction. Coordination: Normal. Involuntary Movements: Occasional myoclonic jerks in the bilateral upper extremities. No associated with change in consciousness. . General Exam: Constitutional: Well-developed, well-nourished . Eyes: Normal appearance, no icterus. Right Ear: Hearing normal. Left Ear: Hearing normal. Neck: Normal appearance. Skin: Warm Psychiatric: good eye contact. Psychiatric: Abnormal mood/affect, behaving abnormally, abnormal thought content, abnormal judgment and abnormal psychomotor. Pulmonary: Effort: No accessory muscle usage or respiratory distress. ASSESSMENT: I, Dr. Lopez personally performed the face to face evaluation on this patient. I discussed with the patient and confirmed the accuracy and completeness of the aforementioned history, and I personally performed the clinical examination of the patient. I have established and discussed the course of treatment with the patient. My medical decision making and treatment plan are as follows: Mr. Jeffery is a 59 year old male presenting with a major neurocognitive disorder. He has been noted to have cognitive and memory dysfunction since around 2021 and has deteriorated progressively over time with a rapid decline after a fall in May 2024. Recent MRI brain findings suggest Extensive brain atrophy although no acute findings after the fall. Incidental colloid cyst noted. EEG in the hospital shows evidences to indicate mild to moderate diffuse encephalopathy that may be correlated with a disorder involving both cortical and subcortical systems Biomarkers for Alzhemiers disease positive. Lumbar puncture not remarkable for infection/ prion disease. At this time his family indicate that he can be managed at home. technical services rep was offered but they would like to defer that for now. A psychiatry consult will be provided particular for agitation and aggressive behaviors. A evaluation with neurosurg for the colloid cyst will be placed. A follow up EEG will be requested. At this time he should continue on his current dose of depakote (500mg twice daily). He may continue on his aricept (10mg daily). No driving stressed. Ms. Jeffery and family member voiced understanding of the plan and may return as scheduled. Patient noted to have elevated BMI and the following intervention(s) were applied: encouragement to exercise. Over 50 mins was spent in ambulatory time and more than 50% of the encounter involved counseling and coordination of care as noted above. Gerald was seen today for new patient. Diagnoses and all orders for this visit: Dementia with behavioral disturbance ([facility]) - Ambulatory referral to Psychiatry (Non[facility]); Future - EEG; Future Colloid cyst of third ventricle ([facility]) - [facility] [place]; Future Episode of confusion - EEG; Future documented in this encounter [facility] 07-30-2024 Note HNO ID: [id number] Author: FIDELINA FISHER APRN.EFRAIN Service: ? Author Type: Nurse Practitioner Type: Progress Notes Filed: 08/12/2024 22:55 Note Text: July 30, 2024 Reason for visit: Patient presents with: Consult Previous Visit: No previous PMANDR. HPI (brief) Estella Jeffery is a 59 year old male. PMHx of TBI and HDL. He had an unwitnessed fall down the stairs. Per family he had a fall in May 2024. He was evaluated at [place] following the fall. Per he had an episode with agitation. Per family he was not displaying agitation prior to the fall. Family notes prior to his fall he was driving and independent with his care. He is now requiring a lot of assistance with care. Subjective: Patient presents with: Consult Family notes concerns with coordination. He has been following with [facility] for his dementia. Per his family his dementia symptoms seems to have worsen following his fall. He continues to have agitation surrounding doctors appointments, he associates doctors with alf. Per family he had a rough admission with jalen at [facility] in [place]. He was started on Seroquel at bedtime. [...] Cognition: - has underline dementia. Following with [facility]. Sleep: - He has been having issues [...] and cranio-cervical junction. Flow voids documented in [place] of [place] and dural venous sinuses. 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 PMHx of TBI and HDL. He had an unwitnessed fall down the stairs. Per family he had a fall in May 2024. He was evaluated at [place] following the fall. He arrives today with his sister and for management following his TBI. Per and sister he has had significant change with his cognition since the f (more content not included)... [facility] 07-30-2024 History of Present illness Narrative July 30, 2024 Reason for visit: Patient presents with: Consult Previous Visit: No previous PM&R. HPI (brief) Estella Jeffery is a 59 year old male. PMHx of TBI and HDL. He had an unwitnessed fall down the stairs. Per family he had a fall in May 2024. He was evaluated at [place] following the fall. Per he had an episode with agitation. Per family he was not displaying agitation prior to the fall. Family notes prior to his fall he was driving and independent with his care. He is now requiring a lot of assistance with care. Subjective: Patient presents with: Consult Family notes concerns with coordination. He has been following with [facility] for his dementia. Per his family his dementia symptoms seems to have worsen following his fall. He continues to have agitation surrounding doctors appointments, he associates doctors with alf. Per family he had a rough admission with jalen at [facility] in [place]. He was started on Seroquel at bedtime. [...] Cognition: - has underline dementia. Following with [facility]. Sleep: - He has been having issues [...] and cranio-cervical junction. Flow voids documented in [place] of [place] and dural venous sinuses. No [...] jaundice UE SAB EF EE WE WF Recreational Programs Director R 5/5 5/5 5/5 5/5 5/5 5/5 L 5/5 5/5 5/5 5/5 5/5 5/5 LE HF KF KE PF DF R 5/5 5/10 22/10 22/10 22/ L 10/22/10/22 IMPRESSION: Estella Jeffery is a 59 year old male. PMHx of TBI and HDL. He had an unwitnessed fall down the stairs. Per family he had a fall in May 2024. He was evaluated at [facility] following the fall. He arrives today with [...] 294.20, ICD10: F03.90 - Will get updated [place] and scan in records. - CONSULT TO [...] which included preparing to see the patient, [id number] patient care, completing clinical documentation, performing a medically appropriate examination, counseling and educating the patient/family/caregiver, ordering medications, tests, or procedures and communicating results to the patient/family/caregiver. Fidelina Fisher APRN.EFRAIN [facility] documented [facility] encounter [facility] 07[facility] Nurse Note AVS discussed with patient and family, no further questions about discharge. No further needs identified. Patient taken downstairs by wheelchair to be driven home by . [employer] 07-22-2024 Plan of care note Problem: Safety [...] at the bedside 7. Instruct patient/ patient high school admissions representative about use of safety devices 8. Include patient/ patient high school admissions representative in decisions related to safety Outcome: Adequate for Discharge Problem: Knowledge Deficit Goal: Patient/patient high school admissions representative demonstrates understanding of disease process, treatment [...] Score of =/> 25 or indicated by [facility] Assessment Goal: Patient should be free from fall Description: Interventions: 1. [place] to environment 2. Hourly rounds addressing the [...] non-skid footwear 11. Teach patient and patient high school admissions representative to maintain environment for safety and [...] (cane, walker) within reach 19. Request patient high school admissions representative bring adaptive equipment/mobility aids from home or obtain and provide as needed 20. Consult pharmacy regarding effects of med's affecting mobility, cognition, and alternatives 21. Obtain physician order for PT if risk factors associated with mobility are present 22. Obtain physician order for OT as appropriate 23. Utilize diversional activities 24. Educate patient and patient high school admissions representative how to maintain a safe environment during visitation times (notify nurse prior to leaving bedside) 25. Consider appropriateness of medical or non-medical planner 26. Set up voiding schedule as appropriate (every 2 hours) Outcome: Adequate for Discharge [facility] 07-22-2024 Miscellaneous Notes Problem: Safety Goal: [...] at the bedside 7. Instruct patient/ patient high school admissions representative about use of safety devices 8. Include patient/ patient high school admissions representative in decisions related to safety Outcome: Adequate for Discharge Problem: Knowledge Deficit Goal: Patient/patient high school admissions representative demonstrates understanding of disease process, treatment [...] Score of =/> 25 or indicated by [facility] Assessment Goal: Patient should be free from fall Description: Interventions: 1. [place] to environment 2. Hourly rounds addressing the [...] non-skid footwear 11. Teach patient and patient high school admissions representative to maintain environment for safety and [...] (cane, walker) within reach 19. Request patient high school admissions representative bring adaptive equipment/mobility aids from home or obtain and provide as needed 20. Consult pharmacy regarding effects of med's affecting mobility, cognition, and alternatives 21. Obtain physician order for PT if risk factors associated with mobility are present 22. Obtain physician order for OT as appropriate 23. Utilize diversional activities 24. Educate patient and patient high school admissions representative how to maintain a safe environment during visitation times (notify nurse prior to leaving bedside) 25. Consider appropriateness of medical or non-medical planner 26. Set up voiding schedule as appropriate [...] at the bedside 7. Instruct patient/ patient high school admissions representative about use of safety devices 8. Include patient/ patient high school admissions representative in decisions related to safety Outcome: Progressing Note: Evaluation of progress towards goal: pt remains free from injury. Family at bedside. Problem: Knowledge Deficit Goal: Patient/patient high school admissions representative demonstrates understanding of disease process, treatment [...] Score of =/> 25 or indicated by [facility] Assessment Goal: Patient should be free from fall Description: Interventions: 1. [place] to environment 2. Hourly rounds addressing the [...] non-skid footwear 11. Teach patient and patient high school admissions representative to maintain environment for safety and [...] (cane, walker) within reach 19. Request patient high school admissions representative bring adaptive equipment/mobility aids from home or obtain and provide as needed 20. Consult pharmacy regarding effects of med's affecting mobility, cognition, and alternatives 21. Obtain physician order for PT if risk factors associated with mobility are present 22. Obtain physician order for OT as appropriate 23. Utilize diversional activities 24. Educate patient and patient high school admissions representative how to maintain a safe environment during visitation times (notify nurse prior to leaving bedside) 25. Consider appropriateness of medical or non-medical planner 26. Set up voiding schedule as appropriate (every 2 hours) Outcome: Progressing Note: Evaluation of progress towards goal: pt remains free from falls. Fall precautions in place and family at bedside Problem: Moderate - High Risk Fall Score Description: [place] Fall Score of =/> 25 or indicated by [facility] Assessment Goal: Patient should be free from fall Description: Interventions: 1. [place] to environment 2. Hourly rounds addressing the [...] non-skid footwear 11. Teach patient and patient high school admissions representative to maintain environment for safety and [...] (cane, walker) within reach 19. Request patient high school admissions representative bring adaptive equipment/mobility aids from home or obtain and provide as needed 20. Consult pharmacy regarding effects of med's affecting mobility, cognition, and alternatives 21. Obtain physician order for PT if risk factors associated with mobility are present 22. Obtain physician order for OT as appropriate 23. Utilize diversional activities 24. Educate patient and patient high school admissions representative how to maintain a safe environment during visitation times (notify nurse prior to leaving bedside) 25. Consider appropriateness of medical or non-medical planner 26. Set up voiding schedule as appropriate (every 2 hours) Outcome: Progressing Note: Evaluation of progress towards goal: pt remains free from falls. Fall precautions in place and family at bedside DISCHARGE PLANNING NOTE [place] Clerk spoke with RN KAY Graf and with weigh and charge worker Mylena about current situation regarding appeal decision and DC plan to home with outpatient services. [place] Clerk placed a call to the who was in the patient's room due to the questions she had re: the discharge plan. [place] Clerk spoke with , Kari on 07/21/24 at 1325. [place] Clerk reviewed Eduardo's DC Appeal Determination Notification with the who confirmed that she had received a voicemail from [facility] this morning. [place] Clerk explained that Eduardo had agreed with the termination of hospital services after having reviewed the uploaded clinical documents from this hospitalization that writer producer had sent to them yesterday. expressed verbal understanding to of Eduardo's decision. [place] Clerk explained that patient's financial liability would begin at Noon on 07/22/24 and offered our care navigation assistance with obtaining transportation to home. had questions about why referrals were not made to fci facilities that family had now chosen, [facility] and [facility]). [place] Clerk explained to the that the patient did not meet the clinical criteria this time for a fci/rehab facility level of care and reminded her that a discussion about this took place this past week/yesterday with the treatment team. explained that she never agreed to take her home and her and her family now want SNF placement. [place] Clerk continued to explain to the process of [...] prior to bringing him to the hospital. [place] Clerk offered supportive listening to the and also offered for her to connect with patient's PCP, Dr. Lopez after she gets her home for resources. [place] Clerk also discussed the outpatient TBI clinic appointment that was being discussed yesterday and that information would be included on patient's after visit summary. [place] Clerk explained that if was not going to make arrangements to take patient home by noon on 07/22, that patient's financial responsibility of $2640.00 per day would begin. expressed verbal understanding to writer producer. [place] Clerk emailed financial responsibility form with instruction to weigh and charge workerCm (and cce'd today's RN Lesia Felton for awareness) for bedside delivery today. is aware of pending paper copy delivery of this form. - NELLI GLEZ FRONT DESK MONITOR CARE NAVIGATION 07/21/24 2:11 PM DISCHARGE PLANNING NOTE We have received DC Appeal Determination Notification from Daryl and Daryl has agreed with the termination of services. Beneficiary liability begins 07.22.2024 by Irma. Beneficiary and/or beneficiary high school admissions representative were to be notified of determination via phone call. [place] determination notification rec'd at [phone] and letter rec'd [phone] were received by writer producer via fax. [place] Clerk uploaded documents to document list. Documentation updated. [place] Clerk received forwarded voice mail 07/21/24 at 1032 from Eduardo Duran's Immediate Advocacy Department , who had left message on Care Navigation Department voice mail at 1617 on 07/20/24, stating he was representing patient's family who had called [facility] asking 1) why denial reason wasn't given re: transfer to another care facility and 2) if the preferred facility by family was able to accept. Reference Case # given from Roger [id number]. [place] Clerk attempted to call Roger back on 07/21/24 at 1214 and writer producer rec'd auto message from [facility] which stated only live phone calls with [facility] are Tuesday thru Tuesday. [place] Clerk left voicemail citing reference case # [id number]. [place] Clerk stated reason for return phone call and requested call back from Roger. - NELLI GLEZ FRONT DESK MONITOR CARE NAVIGATION 07/21/24 12:37 PM Problem: Safety [...] at the bedside 7. Instruct patient/ patient high school admissions representative about use of safety devices 8. Include patient/ patient high school admissions representative in decisions related to safety Outcome: Progressing Note: Evaluation of progress towards goal: Pain will be adequately controlled to allow for rest and adl's Problem: Knowledge Deficit Goal: Patient/patient high school admissions representative demonstrates understanding of disease process, treatment [...] Score of =/> 25 or indicated by [facility] Assessment Goal: Patient should be free from fall Description: Interventions: 1. [place] to environment 2. Hourly rounds addressing the [...] non-skid footwear 11. Teach patient and patient high school admissions representative to maintain environment for safety and [...] (cane, walker) within reach 19. Request patient high school admissions representative bring adaptive equipment/mobility aids from home or obtain and provide as needed 20. Consult pharmacy regarding effects of med's affecting mobility, cognition, and alternatives 21. Obtain physician order for PT if risk factors associated with mobility are present 22. Obtain physician order for OT as appropriate 23. Utilize diversional activities 24. Educate patient and patient high school admissions representative how to maintain a safe environment during visitation times (notify nurse prior to leaving bedside) 25. Consider appropriateness of medical or non-medical planner 26. Set up voiding schedule as appropriate [...] at the bedside 7. Instruct patient/ patient high school admissions representative about use of safety devices 8. Include patient/ patient high school admissions representative in decisions related to safety Outcome: Progressing Note: Evaluation of progress towards goal: pt remains free from injury Problem: Knowledge Deficit Goal: Patient/patient high school admissions representative demonstrates understanding of disease process, treatment [...] Score of =/> 25 or indicated by [facility] Assessment Goal: Patient should be free from fall Description: Interventions: 1. [place] to environment 2. Hourly rounds addressing the [...] non-skid footwear 11. Teach patient and patient high school admissions representative to maintain environment for safety and [...] (cane, walker) within reach 19. Request patient high school admissions representative bring adaptive equipment/mobility aids from home or obtain and provide as needed 20. Consult pharmacy regarding effects of med's affecting mobility, cognition, and alternatives 21. Obtain physician order for PT if risk factors associated with mobility are present 22. Obtain physician order for OT as appropriate 23. Utilize diversional activities 24. Educate patient and patient high school admissions representative how to maintain a safe environment during visitation times (notify nurse prior to leaving bedside) 25. Consider appropriateness of medical or non-medical planner 26. Set up voiding schedule as appropriate (every 2 hours) Outcome: Progressing Note: Evaluation of progress towards goal: fall precautions in place and pt remains free from falls DISCHARGE PLANNING NOTE Patient's family has appealed his discharge & we have received notification from [facility] that a DC appeal has been called in. The chart, DND form, & IMM have been successfully uploaded by writer producer to the [employer] [facility] and successfully received by [employer] [facility]. [facility] will notify the of the patient of the appeal determination. [place] Clerk phone called patient's & read the DND notice to her. Paper copy of the DND notice to be delivered to the patient's bedside. [place] Clerk informed to anticipate phone call from [facility] re: determination of DC Appeal & encouraged wifeto answer the phone when [facility] calls. expressed verbal understanding of DND and the DC appeal process. - NELLI GLEZ FRONT DESK MONITOR CARE NAVIGATION 07/20/24 5:13 PM Problem: Safety [...] at the bedside 7. Instruct patient/ patient high school admissions representative about use of safety devices 8. Include patient/ patient high school admissions representative in decisions related to safety Outcome: Progressing Note: Evaluation of progress towards goal: Patient remains injury free at this time. Problem: Knowledge Deficit Goal: Patient/patient high school admissions representative demonstrates understanding of disease process, treatment [...] be free from fall Description: Interventions: 1. [place] to environment 2. Hourly rounds addressing the [...] non-skid footwear 11. Teach patient and patient high school admissions representative to maintain environment for safety and [...] (cane, walker) within reach 19. Request patient high school admissions representative bring adaptive equipment/mobility aids from home or obtain and provide as needed 20. Consult pharmacy regarding effects of med's affecting mobility, cognition, and alternatives 21. Obtain physician order for PT if risk factors associated with mobility are present 22. Obtain physician order for OT as appropriate 23. Utilize diversional activities 24. Educate patient and patient high school admissions representative how to maintain a safe environment during visitation times (notify nurse prior to leaving bedside) 25. Consider appropriateness of medical or non-medical planner 26. Set up voiding schedule as appropriate (every 2 hours) Outcome: Progressing Note: Evaluation of progress towards goal: Patient remains free from falls at this time. DISCHARGE PLANNING NOTE 07/30 at 12:40 Hospital follow up with Fidelina Fisher CNP [facility] [id number] [place] [address] Confirmed with Taylor at [facility] she did receive the updated notes (neuro, PMR, PT/OT) that were faxed and uploaded to [facility]. She is almost finishing writing it up for physician review and will call us with their determination by 10am. 9:31 am Received call from Taylor at [facility] IPR-she reviewed updated notes with medical office assistant instructor and they remain unable to accept after our 3rd request for review. She said he is doing too well functionally, does not need OT/PT services. She said after discussion with medical office assistant instructor their facility would be of no benefit to the patient. This information was communicated to interdisciplinary team via [employer] chat DISCHARGE PLANNING NOTE Sent face sheet to [facility] for hospital transfer via secure fax to # [phone] DISCHARGE PLANNING NOTE Discharge plan- awaiting responses from [facility] if they can accept. Tasked [facility] to send neuro note from yesterday to them again. Tasked [facility] to fax his face sheet to [facility] per physician request since she is calling them about a hospital to hospital transfer per families request. Leadership team aware. - NANCY PARRISH 07/20/24 8:19 AM Discussed patient and d/c planning with leadership team. Everyone in agreement with d/c today since per physician [facility] can not accept as a hospital transfer and [facility] has denied as well. Physician and this writer producer spoke with patient, and sister that is present re: d/c today and that patient will be going home with outpatient ST and an appointment has been made for a TBI clinic for follow up. Provided IMM to and explained. Leadership aware. - NANCY PARRISH 07/20/24 11:29 AM DISCHARGE PLANNING NOTE Neuro Note sent to [facility] (P# [phone] ; F# [phone]) in [facility] and via efax. Problem: Safety Goal: Patient will be injury free during hospitalization Description: INTERVENTIONS: 1. Assess patient's risk for falls and implement fall prevention plan of care per policy 2. Provide and maintain a safe environment 3. Proper use of double Identifiers 4. Medication administration using the 5 rights 5. Hand hygiene 6. Specimens are labeled at the bedside 7. Instruct patient/ patient high school admissions representative about use of safety devices 8. Include patient/ patient high school admissions representative in decisions related to safety Outcome: Progressing Note: Evaluation of progress towards goal: Pt remains free from injury and significant other at bedside Problem: Knowledge Deficit Goal: Patient/patient high school admissions representative demonstrates understanding of disease process, treatment [...] Score of =/> 25 or indicated by [facility] Assessment Goal: Patient should be free from fall Description: Interventions: 1. [place] to environment 2. Hourly rounds addressing the [...] non-skid footwear 11. Teach patient and patient high school admissions representative to maintain environment for safety and [...] (cane, walker) within reach 19. Request patient high school admissions representative bring adaptive equipment/mobility aids from home or obtain and provide as needed 20. Consult pharmacy regarding effects of med's affecting mobility, cognition, and alternatives 21. Obtain physician order for PT if risk factors associated with mobility are present 22. Obtain physician order for OT as appropriate 23. Utilize diversional activities 24. Educate patient and patient high school admissions representative how to maintain a safe environment during visitation times (notify nurse prior to leaving bedside) 25. Consider appropriateness of medical or non-medical planner 26. Set up voiding schedule as appropriate (every 2 hours) Outcome: Progressing Note: Evaluation of progress towards goal: pt remains free from falls and fall precautions are in place DISCHARGE PLANNING NOTE Updates to [facility] (P# [phone] ; F# [phone]) Occupational Therapy Treatment Discharge Recommendations OT Recommendations [...] therapy per MARCI Rothman Equipment: gait belt Telemetry/Wort Extractor: No Oxygen Used: room air Other: fall [...] up w/mother's name; educated sister on playing [employer] songs from pt's younger years, to encourage [...] 07/17/24 1439 Yoanna Han-Mahoney, KWADWO/L Progressing Problem: Bathing LB Dates: Start: [...] Date/Time User Outcome 07/19/24 1445 Yoanna Han-Mahoney, CAR VARNISHER/L Progressing 07/17/24 1439 Yoanna Han-Mahoney, CAR VARNISHER/L Progressing Problem: Dressing LB Dates: Start: 07/13/24 [...] Outcomes Date/Time User Outcome 07/17/24 1439 Yoanna Rochag, CAR VARNISHER/L Progressing Problem: Standing Balance Dates: Start: 07/13/24 Disciplines: OT Goal: Improve balance to normal Dates: Start: 07/13/24 Expected End: 08/13/24 Description: Normal dynamic balance. Disciplines: OT Outcomes Date/Time User Outcome 07/19/24 1445 Yoanna Villarealales-Mahoney, CAR VARNISHER/L Progressing 07/17/24 1439 Yoanna VillarealalesShelleyMahoney, KWADWO/L Progressing Problem: Toilet Transfers Dates: Start: 07/13/24 Disciplines: OT Goal: Patient will perform toilet transfers Independently Dates: Start: 07/13/24 Expected End: 08/13/24 Description: Goal Description: Disciplines: OT Outcomes Date/Time User Outcome 07/17/24 1439 Yoanna Rochag, KWADWO/L Progressing Problem: Toileting Dates: Start: 07/13/24 Disciplines: OT Goal: Patient will perform toileting Independently Dates: Start: 07/13/24 Expected End: 08/13/24 Description: Goal Description: Disciplines: OT Outcomes Date/Time User Outcome 07/17/24 1439 Yoanna VillarealalesBautistaMahoney, KWADWO/L Progressing Problem: Transfers Dates: Start: 07/13/24 Disciplines: OT Goal: Patient will perform transfers Independently Dates: Start: 07/13/24 Expected End: 08/13/24 Description: Goal Description: Disciplines: OT Outcomes Date/Time User Outcome 07/19/24 1445 Yoanna Villarealales-Mahoney, CAR VARNISHER/L Progressing 07/17/24 1439 Yoanna Ajg, CAR VARNISHER/L Progressing Occupational Therapy Care Plan (Resolved) There are no resolved problems. Principal Problem: Dementia with behavioral disturbance ([facility]) Active Problems: Altered mental status Status post colostomy, follow-up exam ([facility]) Cosigned by RAMONITA Dillon at 07/19/2024 3:13 [...] therapy per MARCI Rothman Equipment: gait belt Telemetry/Wort Extractor: Yes Oxygen Used: room air Other: fall [...] Goal: Patient will perform stairs/curb with Modified [place] Dates: Start: 07/13/24 Expected End: 07/27/24 Description: [...] problems. Principal Problem: Dementia with behavioral disturbance ([facility]) Active Problems: Altered mental status Status post colostomy, follow-up exam ([facility]) Cosigned by Jose Gorman [...] at the bedside 7. Instruct patient/ patient high school admissions representative about use of safety devices 8. Include patient/ patient high school admissions representative in decisions related to safety Outcome: Progressing Note: Evaluation of progress towards goal: Patient remains injury free at this time. Problem: Knowledge Deficit Goal: Patient/patient high school admissions representative demonstrates understanding of disease process, treatment [...] Score of =/> [facility] Goal: Patient should be free from fall Description: Interventions: 1. [place] to environment 2. Hourly rounds addressing the [...] non-skid footwear 11. Teach patient and patient high school admissions representative to maintain environment for safety and [...] (cane, walker) within reach 19. Request patient high school admissions representative bring adaptive equipment/mobility aids from home or obtain and provide as needed 20. Consult pharmacy regarding effects of med's affecting mobility, cognition, and alternatives 21. Obtain physician order for PT if risk factors associated with mobility are present 22. Obtain physician order for OT as appropriate 23. Utilize diversional activities 24. Educate patient and patient high school admissions representative how to maintain a safe environment during visitation times (notify nurse prior to leaving bedside) 25. Consider appropriateness of medical or non-medical planner 26. Set up voiding schedule as appropriate (every 2 hours) Outcome: Progressing Note: Evaluation of progress towards goal: Patient remains free from falls. DISCHARGE PLANNING NOTE Updates to [facility] (P# ; F# ) Images from the original note were not included. DISCHARGE PLANNING NOTE Discussed patient today during rounds. Plan-TBI center VS IPR. This writer producer and floor Mgr spoke with patient's over the phone and his sister in his room re: d/c planning. Updated them that [facility] has denied. Offered to send referral to [facility] to see if they can accept as well as sending blanketed SNF referrals. They are in agreement with sending to [facility] at this time and will let us know today if they would like SNF referrals sent or if the back up plan would be home. Tasked [facility] to send referral to [facility]. Leadership team aware. Services Requested: Services Requested Patient expects to be discharged to:: TBI center VS IPR Discharge Disposition: Acute rehab Patient Goals: Goals: Goals <enter goal here> (pt-stated) Evaluation of progress towards goal: TBI center vs IPR - NANCY PARRISH 07/19/24 10:42 AM This writer producer and wood strip block floor installer and Dr. Shipley spoke with patient, and sister re: d/c planning. They are aware that [facility] is still reviewing referral. Asked if SNF referrals can be sent and they declined stating they would like the physician to see if she can get him transferred to [facility] as a physician to physician transfer. Updated Leadership. If neither of these hospitals can accept then patient to d/c home with since SNF has been declined. - NANCY PARRISH 07/19/24 12:14 PM This writer producer and floor mgr spoke with family to let them know [facility] has denied patient and that they recommend SNF for him. Tasked [facility] to send neuro note from today to [facility] to see if they can accept [...] at the bedside 7. Instruct patient/ patient high school admissions representative about use of safety devices 8. Include patient/ patient high school admissions representative in decisions related to safety Outcome: Progressing Note: Evaluation of progress towards goal: Problem: Knowledge Deficit Goal: Patient/patient high school admissions representative demonstrates understanding of disease process, treatment [...] at the bedside 7. Instruct patient/ patient high school admissions representative about use of safety devices 8. Include patient/ patient high school admissions representative in decisions related to safety Outcome: Progressing Note: Evaluation of progress towards goal: Problem: Knowledge Deficit Goal: Patient/patient high school admissions representative demonstrates understanding of disease process, treatment [...] at the bedside 7. Instruct patient/ patient high school admissions representative about use of safety devices 8. Include patient/ patient high school admissions representative in decisions related to safety Outcome: Progressing Note: Evaluation of progress towards goal: patient is injury free at this time. Problem: Knowledge Deficit Goal: Patient/patient high school admissions representative demonstrates understanding of disease process, treatment [...] Score of =/> 25 or indicated by [facility] Assessment Goal: Patient should be free from fall Description: Interventions: 1. [place] to environment 2. Hourly rounds addressing the [...] non-skid footwear 11. Teach patient and patient high school admissions representative to maintain environment for safety and [...] (cane, walker) within reach 19. Request patient high school admissions representative bring adaptive equipment/mobility aids from home or obtain and provide as needed 20. Consult pharmacy regarding effects of med's affecting mobility, cognition, and alternatives 21. Obtain physician order for PT if risk factors associated with mobility are present 22. Obtain physician order for OT as appropriate 23. Utilize diversional activities 24. Educate patient and patient high school admissions representative how to maintain a safe environment during visitation times (notify nurse prior to leaving bedside) 25. Consider appropriateness of medical or non-medical planner 26. Set up voiding schedule as appropriate (every 2 hours) Outcome: Progressing Note: Evaluation of progress towards goal: Patient is free from falls at this time. DISCHARGE PLANNING NOTE Referral sent to [facility] (P# [phone] ; F# [phone]) Images from the original note were not included. DISCHARGE PLANNING NOTE Discussed patient today during rounds. Patient's requested updates be sent to [facility]. Tasked [facility] to send. Leadership team aware as well as floor nurse. Barriers- acceptance, auth. Services Requested: Services Requested Patient expects to be discharged to:: home vs snf Patient Goals: Goals: Goals <enter goal here> (pt-stated) Evaluation of progress towards goal: TBD-pending PT/OT eval - NANCY PARRISH 07/18/24 10:30 AM Still awaiting response from [facility] if they can accept patient. Leadership [...] at the bedside 7. Instruct patient/ patient high school admissions representative about use of safety devices 8. Include patient/ patient high school admissions representative in decisions related to safety Outcome: [...] Score of =/> 25 or indicated by [facility] Assessment Goal: Patient should be free from fall Description: Interventions: 1. [place] to environment 2. Hourly rounds addressing the [...] non-skid footwear 11. Teach patient and patient high school admissions representative to maintain environment for safety and [...] (cane, walker) within reach 19. Request patient high school admissions representative bring adaptive equipment/mobility aids from home or obtain and provide as needed 20. Consult pharmacy regarding effects of med's affecting mobility, cognition, and alternatives 21. Obtain physician order for PT if risk factors associated with mobility are present 22. Obtain physician order for OT as appropriate 23. Utilize diversional activities 24. Educate patient and patient high school admissions representative how to maintain a safe environment during visitation times (notify nurse prior to leaving bedside) 25. Consider appropriateness of medical or non-medical planner 26. Set up voiding schedule as appropriate (every 2 hours) Outcome: Progressing Note: Evaluation of progress towards goal: Patient will remain free from falls. DISCHARGE PLANNING NOTE Referral sent to. [facility] (P# [phone] ; F# [phone], ) Physical Therapy Treatment Discharge Recommendations PT [...] Rothman Equipment: gait belt and chair alarm Telemetry/Wort Extractor: Yes Oxygen Used: room air Other: fall [...] Note filed on 07/17/24 1443 by Vinod aVca PTA Evaluation of progress towards goal: Problem: [...] Goal: Patient will perform stairs/curb with Modified [place] Dates: Start: 07/13/24 Expected End: 07/27/24 Description: [...] problems. Principal Problem: Dementia with behavioral disturbance ([facility]) Active Problems: Altered mental status Status post colostomy, follow-up exam ([facility]) Cosigned by Janice Nuno PT at 07/18/2024 7:18 AM EST Associated attestation - Janice Nuno PT - 07/18/2024 7:18 AM EST [...] up) Scoring Daily Activity Raw Score: 19 [facility] G Code Modifier: CK Therapy Plan [...] Rothman Equipment: gait belt and chair alarm Telemetry/Wort Extractor: Yes Oxygen Used: room air Other: fall [...] Disciplines: OT Outcomes Date/Time User Outcome 07/17/24 143Yaniv Yoanna Ellsworth CAR VARNISHER/L Progressing Problem: Bathing LB Dates: Start: 07/13/24 [...] Disciplines: OT Outcomes Date/Time User Outcome 07/17/24 143Yaniv Yoanna Ellsworth CAR VARNISHER/L Progressing Problem: Dressing LB Dates: Start: 07/13/24 [...] Disciplines: OT Outcomes Date/Time User Outcome 07/17/24 Guero Yoanna Ellsworth KWADWO/L Progressing Problem: Grooming Dates: Start: 07/13/24 Disciplines: OT Goal: Patient will perform grooming Independently Dates: Start: 07/13/24 Expected End: 08/13/24 Description: Goal Description: Disciplines: OT Outcomes Date/Time User Outcome 07/17/24 1439 Yoanna Ellsworth, CAR VARNISHER/L Progressing Problem: Standing Balance Dates: Start: 07/13/24 Disciplines: OT Goal: Improve balance to normal Dates: Start: 07/13/24 Expected End: 08/13/24 Description: Normal dynamic balance. Disciplines: OT Outcomes Date/Time User Outcome 07/17/24 1439 Yoanna HanShelleyMahoney, KWADWO/L Progressing Problem: Toilet Transfers Dates: Start: [...] Outcomes Date/Time User Outcome 07/17/24 1439 Yoanna HanShelleyMahonye, CAR VARNISHER/L Progressing Problem: Transfers Dates: Start: 07/13/24 Disciplines: OT Goal: Patient will perform transfers Independently Dates: Start: 07/13/24 Expected End: 08/13/24 Description: Goal Description: Disciplines: OT Outcomes Date/Time User Outcome 07/17/24 1439 Yoanna Seng CAR VARNISHER/L Progressing Occupational Therapy Care Plan (Resolved) There are no resolved problems. Principal Problem: Dementia with behavioral disturbance ([facility]) Active Problems: Altered mental status Status post colostomy, follow-up exam ([facility]) Cosigned by RAMONITA Navarro at 07/17/2024 3:03 PM EST Associated attestation - Lucie Olivarez OTR/L - 07/17/2024 3:03 PM EST I have [...] at the bedside 7. Instruct patient/ patient high school admissions representative about use of safety devices 8. Include patient/ patient high school admissions representative in decisions related to safety Outcome: Progressing Note: Evaluation of progress towards goal: Patient is injury free at this time. Problem: Knowledge Deficit Goal: Patient/patient high school admissions representative demonstrates understanding of disease process, treatment [...] Score of =/> 25 or indicated by [facility] Assessment Goal: Patient should be free from fall Description: Interventions: 1. [place] to environment 2. Hourly rounds addressing the [...] non-skid footwear 11. Teach patient and patient high school admissions representative to maintain environment for safety and [...] (cane, walker) within reach 19. Request patient high school admissions representative bring adaptive equipment/mobility aids from home or obtain and provide as needed 20. Consult pharmacy regarding effects of med's affecting mobility, cognition, and alternatives 21. Obtain physician order for PT if risk factors associated with mobility are present 22. Obtain physician order for OT as appropriate 23. Utilize diversional activities 24. Educate patient and patient high school admissions representative how to maintain a safe environment during visitation times (notify nurse prior to leaving bedside) 25. Consider appropriateness of medical or non-medical planner 26. Set up voiding schedule as appropriate (every 2 hours) Outcome: Progressing Note: Evaluation of progress towards goal: Patient is free from falls at this time. DISCHARGE PLANNING NOTE fax referral to [facility] to [phone] shannan Shah Images from the original note were not included. DISCHARGE PLANNING NOTE Discussed patient today during rounds. Plan- IPR/TBI center. Barriers- acceptance, auth. This writer producer called both reviewing facilities and left for admissions to see if they can accept. Asked them to call this writer producer back. Floor nurse and leadership team aware. Services Requested: Services Requested Patient expects to be discharged to:: home vs snf Patient Goals: Goals: Goals <enter goal here> (pt-stated) Evaluation of progress towards goal: TBD-pending PT/OT eval - NANCY PARRISH 07/17/24 9:42 AM At this time we do not have an accepting TBI/IPR facility. This writer producer and wood strip block floor installer attempted to speak with patient's but she is not in the room. Also tried to call her but it went right to and her box is full. - NANCY PARRISH 07/17/24 1:43 PM [facility] called this writer producer since they don't respond in [facility] and they can not accept patient. This writer producer and wood strip block floor installer spoke with patient's and patient's sister [...] at the bedside 7. Instruct patient/ patient high school admissions representative about use of safety devices 8. Include patient/ patient high school admissions representative in decisions related to safety Outcome: Progressing Note: Evaluation of progress towards goal: Patient remains injury and fall free. Safety precautions in place: call light within reach, bed in lowest position, personal belongings within reach, oriented to environment, and non-slip footwear on. Problem: Knowledge Deficit Goal: Patient/patient high school admissions representative demonstrates understanding of disease process, treatment [...] be free from fall Description: Interventions: 1. [place] to environment 2. Hourly rounds addressing the [...] non-skid footwear 11. Teach patient and patient high school admissions representative to maintain environment for safety and [...] (cane, walker) within reach 19. Request patient high school admissions representative bring adaptive equipment/mobility aids from home or obtain and provide as needed 20. Consult pharmacy regarding effects of med's affecting mobility, cognition, and alternatives 21. Obtain physician order for PT if risk factors associated with mobility are present 22. Obtain physician order for OT as appropriate 23. Utilize diversional activities 24. Educate patient and patient high school admissions representative how to maintain a safe environment during visitation times (notify nurse prior to leaving bedside) 25. Consider appropriateness of medical or non-medical planner 26. Set up voiding schedule as appropriate [...] Problem: Auditory Comprehension Dates: Start: 07/12/24 Disciplines: CLIP LOADING MACHINE ADJUSTER Goal: LTG: Patient will comprehend communication related to basic medical and social needs and utilize compensatory strategies to maintain safety in a functional living environment Dates: Start: 07/12/24 Expected End: 08/12/24 Disciplines: CLIP LOADING MACHINE ADJUSTER Goal: STG: Patient will answer complex yes/no questions with 90% accuracy with minimal cueing Dates: Start: 07/12/24 Expected End: 08/12/24 Disciplines: CLIP LOADING MACHINE ADJUSTER Outcomes Date/Time User Outcome 07/16/24 [id number] Saldana Progressing Goal: STG: Patient will complete 1-3 step commands with 90% accuracy with minimal cueing Dates: Start: 07/12/24 Expected End: 08/12/24 Disciplines: CLIP LOADING MACHINE ADJUSTER Outcomes Date/Time User Outcome 07/16/24 MAGALI Altamirano Progressing Goal: STG: Patient will complete simple, phrase level auditory comprehension tasks with 90% accuracy with minimal cueing Dates: Start: 07/12/24 Expected End: 08/12/24 Disciplines: CLIP LOADING MACHINE ADJUSTER Problem: Cognitive Linguistic Dates: Start: 07/12/24 Disciplines: CLIP LOADING MACHINE ADJUSTER Goal: LTG: Patient will display functional cognitive-linguistic skills to demonstrate appropriate communication and safety within daily activities in a functional living environment Dates: Start: 07/12/24 Expected End: 08/12/24 Disciplines: CLIP LOADING MACHINE ADJUSTER Goal: STG: Patient will demonstrate sustained attention by maintaining focus during a task for 10 minutes with minimal assistance Dates: Start: 07/12/24 Expected End: 08/12/24 Disciplines: CLIP LOADING MACHINE ADJUSTER Outcomes Date/Time User Outcome 07/16/24 [id number] Saldana Progressing Goal: STG: Patient will be appropriately oriented to person, place, time and situation with 90% accuracy with minimal cueing Dates: Start: 07/12/24 Expected End: 08/12/24 Disciplines: CLIP LOADING MACHINE ADJUSTER Goal: STG: Patient will recall information discussed during therapy session via retelling/answering questions with 90% accuracy with minimal cueing Dates: Start: 07/12/24 Expected End: 08/12/24 Disciplines: CLIP LOADING MACHINE ADJUSTER Problem: High Level Language Dates: Start: 07/12/24 Disciplines: CLIP LOADING MACHINE ADJUSTER Goal: LTG: Patient will demonstrate use of self-awareness, goal setting, planning, initiation, self-monitoring and problem solving during daily activities to improve safety and awareness in a functional living environment Dates: Start: 07/12/24 Expected End: 08/12/24 Disciplines: CLIP LOADING MACHINE ADJUSTER Goal: STG: Patient will sequence 4-6 steps to a task (verbal, written, pictures) with 90% accuracy with minimal cueing Dates: Start: 07/12/24 Expected End: 08/12/24 Disciplines: CLIP LOADING MACHINE ADJUSTER Goal: STG: Patient will provide 3 appropriate solutions to problems of daily living with 90% accuracy with minimal cueing Dates: Start: 07/12/24 Expected End: 08/12/24 Disciplines: CLIP LOADING MACHINE ADJUSTER Goal: STG: Patient will demonstrate functional problem solving and safety awareness with 90% accuracy in daily living tasks in order to increase safe interactions with environment and decrease assistance from caregivers Dates: Start: 07/12/24 Expected End: 08/12/24 Disciplines: CLIP LOADING MACHINE ADJUSTER Problem: Verbal Expression Dates: Start: 07/12/24 Disciplines: CLIP LOADING MACHINE ADJUSTER Goal: LTG: Patient will utilize compensatory strategies to communicate wants and needs effectively to different conversational partners, maintain safety and participate socially in a functional living environment Dates: Start: 07/12/24 Expected End: 08/12/24 Disciplines: CLIP LOADING MACHINE ADJUSTER Goal: STG: Patient will respond to simple/complex open ended questions during activities of daily living with 90% accuracy with minimal cueing Dates: Start: 07/12/24 Expected End: 08/12/24 Disciplines: CLIP LOADING MACHINE ADJUSTER Goal: STG: Patient will maintain topic of conversation to decrease tangential speech with 90% accuracy with minimal cueing Dates: Start: 07/12/24 Expected End: 08/12/24 Disciplines: CLIP LOADING MACHINE ADJUSTER Outcomes Date/Time User Outcome 07/16/24 1520 Conchita Devi CCC-CLIP LOADING MACHINE ADJUSTER Progressing Speech Therapy Care Plan (Resolved) There are no resolved problems. Principal Problem: Dementia with behavioral disturbance (CMS-HCC) Active Problems: Altered mental status Status post colostomy, follow-up exam ([facility]) DISCHARGE PLANNING NOTE Resent referral in [facility] to [facility] P#[phone]; F#[phone] sent via secure fax to [phone] Problem: Safety Goal: Patient will be injury free during hospitalization Description: INTERVENTIONS: 1. Assess patient's risk for falls and implement fall prevention plan of care per policy 2. Provide and maintain a safe environment 3. Proper use of double Identifiers 4. Medication administration using the 5 rights 5. Hand hygiene 6. Specimens are labeled at the bedside 7. Instruct patient/ patient high school admissions representative about use of safety devices 8. Include patient/ patient high school admissions representative in decisions related to safety Outcome: Progressing Note: Evaluation of progress towards goal: pain will be adequally controlled to allow for rest and adl's Problem: Knowledge Deficit Goal: Patient/patient high school admissions representative demonstrates understanding of disease process, treatment [...] Score of =/> 25 or indicated by [facility] Assessment Goal: Patient should be free from fall Description: Interventions: 1. [place] to environment 2. Hourly rounds addressing the [...] non-skid footwear 11. Teach patient and patient high school admissions representative to maintain environment for safety and [...] (cane, walker) within reach 19. Request patient high school admissions representative bring adaptive equipment/mobility aids from home or obtain and provide as needed 20. Consult pharmacy regarding effects of med's affecting mobility, cognition, and alternatives 21. Obtain physician order for PT if risk factors associated with mobility are present 22. Obtain physician order for OT as appropriate 23. Utilize diversional activities 24. Educate patient and patient high school admissions representative how to maintain a safe environment during visitation times (notify nurse prior to leaving bedside) 25. Consider appropriateness of medical or non-medical planner 26. Set up voiding schedule as appropriate (every 2 hours) Outcome: Progressing Note: Evaluation of progress towards goal: fall bundle DISCHARGE PLANNING NOTE Clinical updates sent to Referrals sent to [facility] (P# [phone] ; F# [phone]) and to [facility] and to [facility] DISCHARGE PLANNING NOTE Referral sent to. [facility] Via secure fax to [phone]. This is theor fax per phone call to facility. P#[phone]. Provider not in [facility]. DISCHARGE PLANNING NOTE Discharge plan- TBD waiting to hear from TBI/IP[facility] who can accept out of the reviewing facilities. [facility] called this writer producer and will call his to discuss. If they are able to accept she would owe private pay for room and board and money is due up front. Updated leadership team and floor nurse. - NANCY PARRISH 07/16/24 8:50 AM Discussed patient today during rounds. Called [facility] and left a VM for admissions to see if they can accept. Awaiting responses from the other facilities to respond. Barriers- acceptance, auth. - NANCY PARRISH 07/16/24 10:58 AM Called admissions at [facility] and [facility] and left VM asking them if they can accept and to call this writer producer back. Left callback #. - NANCY PARRISH 07/16/24 11:05 AM Still awaiting responses from all reviewing IPR this time. Leadership aware. Called [facility] and spoke with admissions and they will review. Also called [facility] and left another VM. Both in [place] are still reviewing at this time. - [...] at the bedside 7. Instruct patient/ patient high school admissions representative about use of safety devices 8. Include patient/ patient high school admissions representative in decisions related to safety Outcome: Progressing Note: Evaluation of progress towards goal: Patient remains injury and fall free. Safety precautions in place: call light within reach, bed in lowest position, personal belongings within reach, oriented to environment, and non-slip footwear on. Problem: Knowledge Deficit Goal: Patient/patient high school admissions representative demonstrates understanding of disease process, treatment [...] Collaborate with ancillary departments 14. Include patient/patient high school admissions representative in decisions related to anxiety Outcome: Progressing Note: Evaluation of progress towards goal: Patient's anxiety appears to be at manageable level. Problem: Moderate - High Risk Fall Score Description: Gallegos Fall Score of =/> 25 or indicated by [facility] Assessment Goal: Patient should be free from fall Description: Interventions: 1. [place] to environment 2. Hourly rounds addressing the [...] non-skid footwear 11. Teach patient and patient high school admissions representative to maintain environment for safety and [...] (cane, walker) within reach 19. Request patient high school admissions representative bring adaptive equipment/mobility aids from home or obtain and provide as needed 20. Consult pharmacy regarding effects of med's affecting mobility, cognition, and alternatives 21. Obtain physician order for PT if risk factors associated with mobility are present 22. Obtain physician order for OT as appropriate 23. Utilize diversional activities 24. Educate patient and patient high school admissions representative how to maintain a safe environment during visitation times (notify nurse prior to leaving bedside) 25. Consider appropriateness of medical or non-medical planner 26. Set up voiding schedule as appropriate [...] at the bedside 7. Instruct patient/ patient high school admissions representative about use of safety devices 8. Include patient/ patient high school admissions representative in decisions related to safety Outcome: [...] Score of =/> 25 or indicated by [facility] Assessment Goal: Patient should be free from fall Description: Interventions: 1. [place] to environment 2. Hourly rounds addressing the [...] non-skid footwear 11. Teach patient and patient high school admissions representative to maintain environment for safety and [...] (cane, walker) within reach 19. Request patient high school admissions representative bring adaptive equipment/mobility aids from home or obtain and provide as needed 20. Consult pharmacy regarding effects of med's affecting mobility, cognition, and alternatives 21. Obtain physician order for PT if risk factors associated with mobility are present 22. Obtain physician order for OT as appropriate 23. Utilize diversional activities 24. Educate patient and patient high school admissions representative how to maintain a safe environment during visitation times (notify nurse prior to leaving bedside) 25. Consider appropriateness of medical or non-medical planner 26. Set up voiding schedule as appropriate [...] at the bedside 7. Instruct patient/ patient high school admissions representative about use of safety devices 8. Include patient/ patient high school admissions representative in decisions related to safety Outcome: Progressing Note: Evaluation of progress towards goal: Proper identifiers used with patient care and medication administration. Remains free of injury during shift Problem: Knowledge Deficit Goal: Patient/patient high school admissions representative demonstrates understanding of disease process, treatment [...] Collaborate with ancillary departments 14. Include patient/patient high school admissions representative in decisions related to anxiety Outcome: [...] be free from fall Description: Interventions: 1. [place] to environment 2. Hourly rounds addressing the [...] non-skid footwear 11. Teach patient and patient high school admissions representative to maintain environment for safety and [...] (cane, walker) within reach 19. Request patient high school admissions representative bring adaptive equipment/mobility aids from home or obtain and provide as needed 20. Consult pharmacy regarding effects of med's affecting mobility, cognition, and alternatives 21. Obtain physician order for PT if risk factors associated with mobility are present 22. Obtain physician order for OT as appropriate 23. Utilize diversional activities 24. Educate patient and patient high school admissions representative how to maintain a safe environment during visitation times (notify nurse prior to leaving bedside) 25. Consider appropriateness of medical or non-medical planner 26. Set up voiding schedule as appropriate [...] at the bedside 7. Instruct patient/ patient high school admissions representative about use of safety devices 8. Include patient/ patient high school admissions representative in decisions related to safety Outcome: Progressing Note: Evaluation of progress towards goal: pain will be controlled to allow for rest and adl's Problem: Knowledge Deficit Goal: Patient/patient high school admissions representative demonstrates understanding of disease process, treatment [...] Collaborate with ancillary departments 14. Include patient/patient high school admissions representative in decisions related to anxiety Outcome: Progressing Note: Evaluation of progress towards goal: listen and reassuring Problem: Moderate - High Risk Fall Score Description: Gallegos Fall Score of =/> 25 or indicated by [facility] Assessment Goal: Patient should be free from fall Description: Interventions: 1. [place] to environment 2. Hourly rounds addressing the [...] non-skid footwear 11. Teach patient and patient high school admissions representative to maintain environment for safety and [...] (cane, walker) within reach 19. Request patient high school admissions representative bring adaptive equipment/mobility aids from home or obtain and provide as needed 20. Consult pharmacy regarding effects of med's affecting mobility, cognition, and alternatives 21. Obtain physician order for PT if risk factors associated with mobility are present 22. Obtain physician order for OT as appropriate 23. Utilize diversional activities 24. Educate patient and patient high school admissions representative how to maintain a safe environment during visitation times (notify nurse prior to leaving bedside) 25. Consider appropriateness of medical or non-medical planner 26. Set up voiding schedule as appropriate (every 2 hours) Outcome: Progressing Note: Evaluation of progress towards goal: fallbundle DISCHARGE PLANNING NOTE Referrals sent to [facility] (P# [phone] ; F# [phone]) and to [facility] and to [facility] and to [facility] p#: [phone] f#: [phone] DISCHARGE PLANNING NOTE Follow-up Discharge Planning Progress Note Per RN during discharge transition rounds, barriers to discharge are: Accepting acute inpatient rehabilitation center. Discharge Plan: [place] Clerk followed up with patient, spouse and patient [...] Discussed lower levels of care such as Prison Facility and Home care. Patient spouse and sister verbalized understanding. Choices received. [facility] tasked to send referrals. Attempted to [...] at the bedside 7. Instruct patient/ patient high school admissions representative about use of safety devices 8. Include patient/ patient high school admissions representative in decisions related to safety Outcome: Progressing Note: Evaluation of progress towards goal: Proper identifiers used with patient care and medication administration. Remains free of injury during shift Problem: Knowledge Deficit Goal: Patient/patient high school admissions representative demonstrates understanding of disease process, treatment [...] Collaborate with ancillary departments 14. Include patient/patient high school admissions representative in decisions related to anxiety Outcome: Progressing Note: Evaluation of progress towards goal: Patient remains free of signs and symptoms of anxiety. Will continue to explain treatment plan and monitor for changes in anxiety levels. Problem: Moderate - High Risk Fall Score Description: Gallegos Fall Score of =/> 25 or indicated by [facility] Assessment Goal: Patient should be free from fall Description: Interventions: 1. [place] to environment 2. Hourly rounds addressing the [...] non-skid footwear 11. Teach patient and patient high school admissions representative to maintain environment for safety and [...] (cane, walker) within reach 19. Request patient high school admissions representative bring adaptive equipment/mobility aids from home or obtain and provide as needed 20. Consult pharmacy regarding effects of med's affecting mobility, cognition, and alternatives 21. Obtain physician order for PT if risk factors associated with mobility are present 22. Obtain physician order for OT as appropriate 23. Utilize diversional activities 24. Educate patient and patient high school admissions representative how to maintain a safe environment during visitation times (notify nurse prior to leaving bedside) 25. Consider appropriateness of medical or non-medical planner 26. Set up voiding schedule as appropriate (every 2 hours) Outcome: Progressing Note: Evaluation of progress towards goal: Call light within reach. Remains free of fall or injury. Environment free of clutter. Problem: Safety - Medical Restraint Goal: Remains free of injury from restraints (Restraint for Interference with Naval Aircrew[employer] Tactical Helicopter) Description: INTERVENTIONS: 1. Determine that other, less [...] Free from restraint(s) (Restraint for Interference with Naval Aircrew[employer] Tactical Helicopter) Description: INTERVENTIONS: 1. ONCE/SHIFT or MINIMUM Q12H: [...] patient's and sister were very upset that [facility] did not accept patient. They declined to offer any other choices for facilities to her at this time. Lesia encouraged them to allow her to make referrals to some TBI facilities at [facility] and in [place] but at this time they are angry that [facility] did not accept patient. [place] Clerk will request SW follow up with them in the morning to obtain choices to continue developing a transition of care plan. DISCHARGE PLANNING NOTE Referral sent to [facility] P#[phone]; F#([phone]); [facility] P# [phone] [calling report];/[facility] (P# [calling report]; F# ) DISCHARGE PLANNING NOTE Per RN during discharge transition rounds, barriers to discharge are: Telesitter, PMR re-eval, Seroquel dose adjustment. Discharge Plan: [facility] for TBI rehab. PT/OT recommended IPR. CN met with and sister Earlene. wants a referral sent [facility]. CN discussed discharge and making referrals to other TBI/ IPR rehabs in the state, and sister stated they are putting all their zak in [facility] being able to accept the patient. Associate Professor Of Economics will continue to follow for any discharge needs. - Lesia Caba RN 07/13/24 12:18 PM Addendum: [facility] is not in network with patients [employer] insurance. gave CN two more choices : [facility] and [facility] rehab. [facility] tasked to send referrals. and sister are calling insurance to ask about a one time contract to [facility]. Ethel , [facility] rep, stopped in to talk to and sister. - Lesia Caba RN 07/13/24 2:10 PM Addendum: Patient's and sister asked CN to listen and talk to sales agent marine insurance regarding a one time approval for the IPR: [facility]. Echocardiography Technologist Xiomy with [employer] stated attending or managing physician needs to document patient's health status and progression, information on why the patient needs to go this specific facility for rehab, include diagnosis codes and services codes. Fax: Prior Auth Request to [phone] attn: Prior Auth Request at [employer]. CN sent pic chat to Dr. Nichol Heath. Dr. Heath asked if there is a form to fill out. [facility] to see if they have generic PA [...] member re: the process to see if [facility] can accept. - Lesia Caba RN 07/13/24 3:51 PM DISCHARGE PLANNING NOTE Referral to [facility] (P# ; F# ) Occupational Therapy Evaluation Discharge Recommendations OT Recommendations : Inpatient Rehab Inpatient Rehab Criteria: All inpatient rehab criteria expected to be met (patient would benefit from rehab to address cognition, ADL, endurance. Patient was able to drive in May and was able to complete ADL tasks. [...] 11/24/2019 Performed by Skyler Bowen MD at [facility] [place] 3YEARS AGO COLOSTOMY CLOSURE Therapy Plan Need [...] early mobility guidelines. Equipment: gait belt, telemetry Telemetry/Wort Extractor: Yes Oxygen Used: room air Other: fall [...] and pants. Patient was able to static inventory manager front of toilet with contact guard. Patient was unable to void due to trouble with processing, safety and judgement. Home Management - IADL Other: patient has trouble executing tasks. patient was able to ambulate into bathroom with contact guard. patient required min assist to doff underware and pants. Patient was able to static inventory manager front of toilet with contact guard. Patient [...] problems. Principal Problem: Dementia with behavioral disturbance ([facility]) Active Problems: Altered mental status Status post colostomy, follow-up exam ([facility]) Physical Therapy Evaluation Discharge Recommendations PT Recommendations: [...] 6 Clicks: Basic Mobility Raw Score: 20 [facility] G Code Modifier: CJ Therapy Plan Need for skilled Physical Therapy to address deficits in functional mobility due to a status decline resulting from admission 07/06 as a transfer from [facility] for neurological work up. Patient diagnosed with early onset dementia 2022, per spouse report after jail and med changes cognitive status had improved and stabilized prior to fall in May 2024. 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 Pt discharged to inpatient treatment facility and returned to [facility] for scheduled MRI. 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 Principal Problem: Dementia with behavioral disturbance ([facility]) Active Problems: Altered mental status Status post colostomy, follow-up exam ([facility]) Problem: Safety Goal: Patient will be injury free during hospitalization Description: INTERVENTIONS: 1. Assess patient's risk for falls and implement fall prevention plan of care per policy 2. Provide and maintain a safe environment 3. Proper use of double Identifiers 4. Medication administration using the 5 rights 5. Hand hygiene 6. Specimens are labeled at the bedside 7. Instruct patient/ patient high school admissions representative about use of safety devices 8. Include patient/ patient high school admissions representative in decisions related to safety Outcome: Progressing Note: Evaluation of progress towards goal: Patient remains injury and fall free. Safety precautions in place: call light within reach, bed in lowest position, personal belongings within reach, oriented to environment, and non-slip footwear on. Problem: Knowledge Deficit Goal: Patient/patient high school admissions representative demonstrates understanding of disease process, treatment [...] Collaborate with ancillary departments 14. Include patient/patient high school admissions representative in decisions related to anxiety Outcome: Progressing Note: Evaluation of progress towards goal: Patient's has at bedside to help with spells of anxiety. Problem: Moderate - High Risk Fall Score Description: Gallegos Fall Score of =/> 25 or indicated by [facility] Assessment Goal: Patient should be free from fall Description: Interventions: 1. [place] to environment 2. Hourly rounds addressing the [...] non-skid footwear 11. Teach patient and patient high school admissions representative to maintain environment for safety and [...] (cane, walker) within reach 19. Request patient high school admissions representative bring adaptive equipment/mobility aids from home or obtain and provide as needed 20. Consult pharmacy regarding effects of med's affecting mobility, cognition, and alternatives 21. Obtain physician order for PT if risk factors associated with mobility are present 22. Obtain physician order for OT as appropriate 23. Utilize diversional activities 24. Educate patient and patient high school admissions representative how to maintain a safe environment during visitation times (notify nurse prior to leaving bedside) 25. Consider appropriateness of medical or non-medical planner 26. Set up voiding schedule as appropriate (every 2 hours) Outcome: Progressing Note: Evaluation of progress towards goal: Patient remains injury and fall free. Safety precautions in place: call light within reach, bed in lowest position, personal belongings within reach, oriented to environment, and non-slip footwear on. Problem: Safety - Medical Restraint Goal: Remains free of injury from restraints (Restraint for Interference with [employer]) Description: INTERVENTIONS: 1. Determine that other, less [...] Free from restraint(s) (Restraint for Interference with [employer]) Description: INTERVENTIONS: 1. ONCE/SHIFT or MINIMUM Q12H: [...] CN escalated this case to CN leadership. Associate Professor Of Economics will continue to follow for any discharge [...] at the bedside 7. Instruct patient/ patient high school admissions representative about use of safety devices 8. Include patient/ patient high school admissions representative in decisions related to safety Outcome: Progressing Note: Evaluation of progress towards goal: Patient remains injury free at present time. Safe environment provided and maintained. Medications administered using 5 rights. Problem: Knowledge Deficit Goal: Patient/patient high school admissions representative demonstrates understanding of disease process, treatment [...] Collaborate with ancillary departments 14. Include patient/patient high school admissions representative in decisions related to anxiety Outcome: Progressing Note: Evaluation of progress towards goal: Patient has family at bedside assisting with anxiety. Problem: Safety - Medical Restraint Goal: Remains free of injury from restraints (Restraint for Interference with [employer]) Description: INTERVENTIONS: 1. Determine that other, less [...] Free from restraint(s) (Restraint for Interference with [employer]) Description: INTERVENTIONS: 1. ONCE/SHIFT or MINIMUM Q12H: [...] continue to follow along. Prognosis Services: Skilled CLIP LOADING MACHINE ADJUSTER services to address the above deficits Prognosis/Potential: [...] Problem: Auditory Comprehension Dates: Start: 07/12/24 Disciplines: CLIP LOADING MACHINE ADJUSTER Goal: LTG: Patient will comprehend communication related to basic medical and social needs and utilize compensatory strategies to maintain safety in a functional living environment Dates: Start: 07/12/24 Expected End: 08/12/24 Disciplines: CLIP LOADING MACHINE ADJUSTER Goal: STG: Patient will answer complex yes/no questions with 90% accuracy with minimal cueing Dates: Start: 07/12/24 Expected End: 08/12/24 Disciplines: CLIP LOADING MACHINE ADJUSTER Goal: STG: Patient will complete 1-3 step commands with 90% accuracy with minimal cueing Dates: Start: 07/12/24 Expected End: 08/12/24 Disciplines: CLIP LOADING MACHINE ADJUSTER Goal: STG: Patient will complete simple, phrase level auditory comprehension tasks with 90% accuracy with minimal cueing Dates: Start: 07/12/24 Expected End: 08/12/24 Disciplines: CLIP LOADING MACHINE ADJUSTER Problem: Cognitive Linguistic Dates: Start: 07/12/24 Disciplines: CLIP LOADING MACHINE ADJUSTER Goal: LTG: Patient will display functional cognitive-linguistic skills to demonstrate appropriate communication and safety within daily activities in a functional living environment Dates: Start: 07/12/24 Expected End: 08/12/24 Disciplines: CLIP LOADING MACHINE ADJUSTER Goal: STG: Patient will demonstrate sustained attention by maintaining focus during a task for 10 minutes with minimal assistance Dates: Start: 07/12/24 Expected End: 08/12/24 Disciplines: CLIP LOADING MACHINE ADJUSTER Goal: STG: Patient will be appropriately oriented to person, place, time and situation with 90% accuracy with minimal cueing Dates: Start: 07/12/24 Expected End: 08/12/24 Disciplines: CLIP LOADING MACHINE ADJUSTER Goal: STG: Patient will recall information discussed during therapy session via retelling/answering questions with 90% accuracy with minimal cueing Dates: Start: 07/12/24 Expected End: 08/12/24 Disciplines: CLIP LOADING MACHINE ADJUSTER Problem: High Level Language Dates: Start: 07/12/24 Disciplines: CLIP LOADING MACHINE ADJUSTER Goal: LTG: Patient will demonstrate use of self-awareness, goal setting, planning, initiation, self-monitoring and problem solving during daily activities to improve safety and awareness in a functional living environment Dates: Start: 07/12/24 Expected End: 08/12/24 Disciplines: CLIP LOADING MACHINE ADJUSTER Goal: STG: Patient will sequence 4-6 steps to a task (verbal, written, pictures) with 90% accuracy with minimal cueing Dates: Start: 07/12/24 Expected End: 08/12/24 Disciplines: CLIP LOADING MACHINE ADJUSTER Goal: STG: Patient will provide 3 appropriate solutions to problems of daily living with 90% accuracy with minimal cueing Dates: Start: 07/12/24 Expected End: 08/12/24 Disciplines: CLIP LOADING MACHINE ADJUSTER Goal: STG: Patient will demonstrate functional problem solving and safety awareness with 90% accuracy in daily living tasks in order to increase safe interactions with environment and decrease assistance from caregivers Dates: Start: 07/12/24 Expected End: 08/12/24 Disciplines: CLIP LOADING MACHINE ADJUSTER Problem: Verbal Expression Dates: Start: 07/12/24 Disciplines: CLIP LOADING MACHINE ADJUSTER Goal: LTG: Patient will utilize compensatory strategies to communicate wants and needs effectively to different conversational partners, maintain safety and participate socially in a functional living environment Dates: Start: 07/12/24 Expected End: 08/12/24 Disciplines: CLIP LOADING MACHINE ADJUSTER Goal: STG: Patient will respond to simple/complex open ended questions during activities of daily living with 90% accuracy with minimal cueing Dates: Start: 07/12/24 Expected End: 08/12/24 Disciplines: CLIP LOADING MACHINE ADJUSTER Goal: STG: Patient will maintain topic of conversation to decrease tangential speech with 90% accuracy with minimal cueing Dates: Start: 07/12/24 Expected End: 08/12/24 Disciplines: CLIP LOADING MACHINE ADJUSTER Speech Therapy Care Plan (Resolved) There are no resolved problems. Principal Problem: Dementia with behavioral disturbance ([facility]) Active Problems: Altered mental status Status post colostomy, follow-up exam ([facility]) Problem: Safety - Medical Restraint Goal: Remains free of injury from restraints (Restraint for Interference with [employer]) Description: INTERVENTIONS: 1. Determine that other, less [...] Free from restraint(s) (Restraint for Interference with [employer]) Description: INTERVENTIONS: 1. ONCE/SHIFT or MINIMUM Q12H: [...] elimination needs BEHAVIORAL RESTRAINTS PROVIDER ONE HOUR [id number] EVALUATION NOTE Estella Jeffery was evaluated on 07/12/24-12:27 AM The [...] at the bedside 7. Instruct patient/ patient high school admissions representative about use of safety devices 8. Include patient/ patient high school admissions representative in decisions related to safety Outcome: Progressing Note: Evaluation of progress towards goal: Patient remains injury and fall free. Safety precautions in place: call light within reach, bed in lowest position, personal belongings within reach, oriented to environment, and non-slip footwear on. Problem: Knowledge Deficit Goal: Patient/patient high school admissions representative demonstrates understanding of disease process, treatment [...] Collaborate with ancillary departments 14. Include patient/patient high school admissions representative in decisions related to anxiety Outcome: Progressing Note: Evaluation of progress towards goal: Patient has at bedside aiding in assisting with anxiety. Problem: Moderate - High Risk Fall Score Description: Gallegos Fall Score of =/> 25 or indicated by [facility] Assessment Goal: Patient should be free from fall Description: Interventions: 1. [place] to environment 2. Hourly rounds addressing the [...] non-skid footwear 11. Teach patient and patient high school admissions representative to maintain environment for safety and [...] (cane, walker) within reach 19. Request patient high school admissions representative bring adaptive equipment/mobility aids from home or obtain and provide as needed 20. Consult pharmacy regarding effects of med's affecting mobility, cognition, and alternatives 21. Obtain physician order for PT if risk factors associated with mobility are present 22. Obtain physician order for OT as appropriate 23. Utilize diversional activities 24. Educate patient and patient high school admissions representative how to maintain a safe environment during visitation times (notify nurse prior to leaving bedside) 25. Consider appropriateness of medical or non-medical planner 26. Set up voiding schedule as appropriate [...] at night, unpredictable and confused. Discharge Plan: TBD. [facility] psych stated [facility] was sent a referral and they have declined. Waiting input from psych. Associate Professor Of Economics will continue to follow for any discharge needs. - Lesia Caba RN 07/11/24 12:06 PM Late entery: CN met with patient, Kari, and sister Earlene on Tuesday afternoon. and sister want the patient to go to a Traumatic Brain Injury rehab unit. CN began researching TBI Rehab units in the area, reported back to the and sister after finding TBI rehab units in [facility]. Sister asked for me to look in [facility]. and sister do not want any referrals send until they are able to meet with the neurologist again, sister wants to look into the TBI units in the [facility] herself before any referrals are sent. - Lesia Caba RN 07/12/24 8:11 AM Referral sent to [facility] to assess for admission to that center's inpatient psychiatric unit. After a clinical review and screening was completed [facility] assessed patient as inappropriate for treatment at that facility. Will alert care team. - NANCY Martines 07/11/24 10:33 AM DISCHARGE PLANNING NOTE Updates to [facility] [phone] Problem: Safety Goal: Patient will be injury free during hospitalization Description: INTERVENTIONS: 1. Assess patient's risk for falls and implement fall prevention plan of care per policy 2. Provide and maintain a safe environment 3. Proper use of double Identifiers 4. Medication administration using the 5 rights 5. Hand hygiene 6. Specimens are labeled at the bedside 7. Instruct patient/ patient high school admissions representative about use of safety devices 8. Include patient/ patient high school admissions representative in decisions related to safety Outcome: Progressing Note: Evaluation of progress towards goal: Patient remains injury free at present time. Safe environment provided and maintained. Medications administered using 5 rights. Problem: Knowledge Deficit Goal: Patient/patient high school admissions representative demonstrates understanding of disease process, treatment [...] Collaborate with ancillary departments 14. Include patient/patient high school admissions representative in decisions related to anxiety Outcome: Progressing Note: Evaluation of progress towards goal: Patient has at bedside assisting with anxiety. Problem: Moderate - High Risk Fall Score Description: Gallegos Fall Score of =/> 25 or indicated by [facility] Assessment Goal: Patient should be free from fall Description: Interventions: 1. [place] to environment 2. Hourly rounds addressing the [...] non-skid footwear 11. Teach patient and patient high school admissions representative to maintain environment for safety and [...] (cane, walker) within reach 19. Request patient high school admissions representative bring adaptive equipment/mobility aids from home or obtain and provide as needed 20. Consult pharmacy regarding effects of med's affecting mobility, cognition, and alternatives 21. Obtain physician order for PT if risk factors associated with mobility are present 22. Obtain physician order for OT as appropriate 23. Utilize diversional activities 24. Educate patient and patient high school admissions representative how to maintain a safe environment during visitation times (notify nurse prior to leaving bedside) 25. Consider appropriateness of medical or non-medical planner 26. Set up voiding schedule as appropriate [...] injury from restraints (Restraint for Interference with [employer]opter) Description: INTERVENTIONS: 1. Determine that other, less [...] Free from restraint(s) (Restraint for Interference with [employer] Hel[employer]opter) Description: INTERVENTIONS: 1. ONCE/SHIFT or MINIMUM Q12H: [...] elimination needs BEHAVIORAL RESTRAINTS PROVIDER ONE HOUR [id number] EVALUATION NOTE Estella Jeffery was evaluated on 07/10/2024 at 2350. [...] at the bedside 7. Instruct patient/ patient high school admissions representative about use of safety devices 8. Include patient/ patient high school admissions representative in decisions related to safety Outcome: [...] hygiene technique. 7. Identify and instruct patient/patient high school admissions representative in use of appropriate isolation precautions for identified infection/symptoms. 8. Provide and discuss with patient/patient high school admissions representative on educational MDRO sheet. 9. Encourage and monitor nutritional status daily and consult facilities operations technician if indicated. 10. Implement neutropenic guidelines as needed. Outcome: Progressing Note: Evaluation of progress towards goal: Patient remains free of any signs of infection. Signs and symptoms being monitor such as fevers, chills, warm/red areas. Problem: Knowledge Deficit Goal: Patient/patient high school admissions representative demonstrates understanding of disease process, treatment [...] Collaborate with ancillary departments 14. Include patient/patient high school admissions representative in decisions related to anxiety Outcome: Progressing Note: Evaluation of progress towards goal: Patient's anxiety is at manageable level. Problem: Safety - Medical Restraint Goal: Remains free of injury from restraints (Restraint for Interference with [employer]) Description: INTERVENTIONS: 1. Determine that other, less [...] Free from restraint(s) (Restraint for Interference with [employer] Helicopter) Description: INTERVENTIONS: 1. ONCE/SHIFT or MINIMUM Q12H: [...] on patient's door 9. Provide patient/ patient high school admissions representative with isolation education. Outcome: Progressing Note: Evaluation of progress towards goal: Discard single-use items. Clean reusable equipment. Wear gloves for direct and indirect patient care. Wash hands before and after care of patient. Problem: Moderate - High Risk Fall Score Description: Gallegos Fall Score of =/> 25 or indicated by [facility] Assessment Goal: Patient should be free from fall Description: Interventions: 1. [place] to environment 2. Hourly rounds addressing the [...] non-skid footwear 11. Teach patient and patient high school admissions representative to maintain environment for safety and [...] (cane, walker) within reach 19. Request patient high school admissions representative bring adaptive equipment/mobility aids from home or obtain and provide as needed 20. Consult pharmacy regarding effects of med's affecting mobility, cognition, and alternatives 21. Obtain physician order for PT if risk factors associated with mobility are present 22. Obtain physician order for OT as appropriate 23. Utilize diversional activities 24. Educate patient and patient high school admissions representative how to maintain a safe environment during visitation times (notify nurse prior to leaving bedside) 25. Consider appropriateness of medical or non-medical planner 26. Set up voiding schedule as appropriate [...] at the bedside 7. Instruct patient/ patient high school admissions representative about use of safety devices 8. Include patient/ patient high school admissions representative in decisions related to safety Outcome: [...] hygiene technique. 7. Identify and instruct patient/patient high school admissions representative in use of appropriate isolation precautions for identified infection/symptoms. 8. Provide and discuss with patient/patient high school admissions representative on educational MDRO sheet. 9. Encourage and monitor nutritional status daily and consult facilities operations technician if indicated. 10. Implement neutropenic guidelines as needed. Outcome: Progressing Note: Evaluation of progress towards goal: patient remains afebrile at this time Problem: Knowledge Deficit Goal: Patient/patient high school admissions representative demonstrates understanding of disease process, treatment [...] Collaborate with ancillary departments 14. Include patient/patient high school admissions representative in decisions related to anxiety Outcome: Progressing Note: Evaluation of progress towards goal: discussed w/ patient coping strategies & dietary changes that may aid in controlling stress & anxiety. Problem: Safety - Medical Restraint Goal: Remains free of injury from restraints (Restraint for Interference with [employer]) Description: INTERVENTIONS: 1. Determine that other, less [...] Free from restraint(s) (Restraint for Interference with [employer] Hel[employer]opter) Description: INTERVENTIONS: 1. ONCE/SHIFT or MINIMUM Q12H: [...] on patient's door 9. Provide patient/ patient high school admissions representative with isolation education. Outcome: Progressing Note: Evaluation of progress towards goal: patient remains afebrile at this time Problem: Moderate - High Risk Fall Score Description: Gallegos Fall Score of =/> 25 or indicated by [facility] Assessment Goal: Patient should be free from fall Description: Interventions: 1. [place] to environment 2. Hourly rounds addressing the [...] non-skid footwear 11. Teach patient and patient high school admissions representative to maintain environment for safety and [...] (cane, walker) within reach 19. Request patient high school admissions representative bring adaptive equipment/mobility aids from home or obtain and provide as needed 20. Consult pharmacy regarding effects of med's affecting mobility, cognition, and alternatives 21. Obtain physician order for PT if risk factors associated with mobility are present 22. Obtain physician order for OT as appropriate 23. Utilize diversional activities 24. Educate patient and patient high school admissions representative how to maintain a safe environment during visitation times (notify nurse prior to leaving bedside) 25. Consider appropriateness of medical or non-medical planner 26. Set up voiding schedule as appropriate [...] needed for restraints, re-consult psych. Discharge Plan: TBD. CN discussed case with colin Solorio Associate Professor Of Economics will continue to follow for any discharge [...] at the bedside 7. Instruct patient/ patient high school admissions representative about use of safety devices 8. Include patient/ patient high school admissions representative in decisions related to safety Outcome: [...] hygiene technique. 7. Identify and instruct patient/patient high school admissions representative in use of appropriate isolation precautions for identified infection/symptoms. 8. Provide and discuss with patient/patient high school admissions representative on educational MDRO sheet. 9. Encourage and monitor nutritional status daily and consult facilities operations technician if indicated. 10. Implement neutropenic guidelines as needed. Outcome: Progressing Note: Evaluation of progress towards goal: Skin integrity remains in stable condition; remains w/o ss of infection, fever, pain, or increased discomfort. Problem: Knowledge Deficit Goal: Patient/patient high school admissions representative demonstrates understanding of disease process, treatment [...] of 0 - 24 or indicated by [facility] Assessment Goal: Patient should be free from fall Description: Interventions: 1. [place] to environment 2. Hourly rounds addressing the [...] non-skid footwear 11. Teach patient and patient high school admissions representative to maintain environment for safety and [...] Collaborate with ancillary departments 14. Include patient/patient high school admissions representative in decisions related to anxiety Outcome: [...] on patient's door 9. Provide patient/ patient high school admissions representative with isolation education. Outcome: Progressing Note: Evaluation of progress towards goal: Skin integrity remains in stable condition; remains w/o ss of infection, fever, pain, or increased discomfort. Problem: Moderate - High Risk Fall Score Description: Gallegos Fall Score of =/> 25 or indicated by [facility] Assessment Goal: Patient should be free from fall Description: Interventions: 1. [place] to environment 2. Hourly rounds addressing the [...] non-skid footwear 11. Teach patient and patient high school admissions representative to maintain environment for safety and [...] (cane, walker) within reach 19. Request patient high school admissions representative bring adaptive equipment/mobility aids from home or obtain and provide as needed 20. Consult pharmacy regarding effects of med's affecting mobility, cognition, and alternatives 21. Obtain physician order for PT if risk factors associated with mobility are present 22. Obtain physician order for OT as appropriate 23. Utilize diversional activities 24. Educate patient and patient high school admissions representative how to maintain a safe environment during visitation times (notify nurse prior to leaving bedside) 25. Consider appropriateness of medical or non-medical planner 26. Set up voiding schedule as appropriate (every 2 hours) Outcome: Progressing Note: Evaluation of progress towards goal: Call light within reach. Remains free of fall or injury. Environment free of clutter. BEHAVIORAL RESTRAINTS PROVIDER ONE HOUR [id number] EVALUATION NOTE Estella Jeffery was evaluated on 07/09/2024 at 1950. [...] at the bedside 7. Instruct patient/ patient high school admissions representative about use of safety devices 8. Include patient/ patient high school admissions representative in decisions related to safety Outcome: [...] hygiene technique. 7. Identify and instruct patient/patient high school admissions representative in use of appropriate isolation precautions for identified infection/symptoms. 8. Provide and discuss with patient/patient high school admissions representative on educational MDRO sheet. 9. Encourage and monitor nutritional status daily and consult facilities operations technician if indicated. 10. Implement neutropenic guidelines as needed. Outcome: Progressing Note: Evaluation of progress towards goal: patient remains afebrile at this time Problem: Knowledge Deficit Goal: Patient/patient high school admissions representative demonstrates understanding of disease process, treatment [...] of 0 - 24 or indicated by [facility] Assessment Goal: Patient should be free from fall Description: Interventions: 1. [place] to environment 2. Hourly rounds addressing the [...] non-skid footwear 11. Teach patient and patient high school admissions representative to maintain environment for safety and [...] Collaborate with ancillary departments 14. Include patient/patient high school admissions representative in decisions related to anxiety Outcome: [...] injury from restraints (Restraint for Interference with [employer]) Description: INTERVENTIONS: 1. Determine that other, less [...] Free from restraint(s) (Restraint for Interference with [employer]) Description: INTERVENTIONS: 1. ONCE/SHIFT or MINIMUM Q12H: [...] on patient's door 9. Provide patient/ patient high school admissions representative with isolation education. Outcome: Progressing Note: Evaluation of progress towards goal: patient remains afebrile at this time DISCHARGE PLANNING NOTE Clinical updates including sent to. [facility]. (P# [phone] ; F# [phone]) via [employer] Query Response Note CDI QUERY TEXT: Altered [...] . Thank you, Ethel Bueno RN, CDI [email or web address] The patient's Clinical Indicators include: As above CDI RESPONSE TEXT: Patient has progression of dementia causing agitation, no evidence of metabolic or toxic encephalopathy. Query created by: Ethel Bueno on 07/09/2024 5:42 AM Electronically signed by: Lonnie Baker MD 07/09/2024 3:22 PM DISCHARGE PLANNING NOTE Referral sent to [address] (P# [phone] ; F# [phone]) via efax DISCHARGE PLANNING NOTE Per RN during discharge transition rounds, barriers to discharge are: Needs MRI with sedation, LP with sedation, non-violent restraints, confused, restless, and disoriented, psych needs to see Discharge Plan: TBD. Planning placement or inpatient behavioral unit. CN does not believe it is safe for patient to return home. Psych SW following. Associate Professor Of Economics will continue to follow for any discharge [...] at the bedside 7. Instruct patient/ patient high school admissions representative about use of safety devices 8. Include patient/ patient high school admissions representative in decisions related to safety Outcome: [...] hygiene technique. 7. Identify and instruct patient/patient high school admissions representative in use of appropriate isolation precautions for identified infection/symptoms. 8. Provide and discuss with patient/patient high school admissions representative on educational MDRO sheet. 9. Encourage and monitor nutritional status daily and consult facilities operations technician if indicated. 10. Implement neutropenic guidelines as needed. Outcome: Progressing Note: Evaluation of progress towards goal: monitor s/s of infection Problem: Knowledge Deficit Goal: Patient/patient high school admissions representative demonstrates understanding of disease process, treatment [...] of 0 - 24 or indicated by [facility] Assessment Goal: Patient should be free from fall Description: Interventions: 1. [place] to environment 2. Hourly rounds addressing the [...] non-skid footwear 11. Teach patient and patient high school admissions representative to maintain environment for safety and [...] Collaborate with ancillary departments 14. Include patient/patient high school admissions representative in decisions related to anxiety Outcome: [...] injury from restraints (Restraint for Interference with [employer]) Description: INTERVENTIONS: 1. Determine that other, less [...] Free from restraint(s) (Restraint for Interference with [employer]) Description: INTERVENTIONS: 1. ONCE/SHIFT or MINIMUM Q12H: [...] hourly rounding BEHAVIORAL RESTRAINTS PROVIDER ONE HOUR [id number] EVALUATION NOTE Estella Jeffery was evaluated on 07/08/2024 at 1906. [...] self and others. Jackson Peterson PA-C 07/08/242014 NIGHT07/08/24-2300 On reassessment patient is resting in bed [...] and others. Jackson Peterson PA-C 07/09/24 0344 [facility] NIGHT BEHAVIORAL RESTRAINTS PROVIDER ONE HOUR [id number] EVALUATION NOTE Estella Jeffery was evaluated on 07/08/2023 at 0441. [...] at the bedside 7. Instruct patient/ patient high school admissions representative about use of safety devices 8. Include patient/ patient high school admissions representative in decisions related to safety Outcome: [...] hygiene technique. 7. Identify and instruct patient/patient high school admissions representative in use of appropriate isolation precautions for identified infection/symptoms. 8. Provide and discuss with patient/patient high school admissions representative on educational MDRO sheet. 9. Encourage and monitor nutritional status daily and consult facilities operations technician if indicated. 10. Implement neutropenic guidelines as needed. Outcome: Progressing Note: Evaluation of progress towards goal: Patient has no infection at this time. Problem: Knowledge Deficit Goal: Patient/patient high school admissions representative demonstrates understanding of disease process, treatment [...] of 0 - 24 or indicated by [facility] Assessment Goal: Patient should be free from fall Description: Interventions: 1. [place] to environment 2. Hourly rounds addressing the [...] non-skid footwear 11. Teach patient and patient high school admissions representative to maintain environment for safety and [...] Collaborate with ancillary departments 14. Include patient/patient high school admissions representative in decisions related to anxiety Outcome: [...] at the bedside 7. Instruct patient/ patient high school admissions representative about use of safety devices 8. Include patient/ patient high school admissions representative in decisions related to safety Outcome: [...] hygiene technique. 7. Identify and instruct patient/patient high school admissions representative in use of appropriate isolation precautions for identified infection/symptoms. 8. Provide and discuss with patient/patient high school admissions representative on educational MDRO sheet. 9. Encourage and monitor nutritional status daily and consult facilities operations technician if indicated. 10. Implement neutropenic guidelines as needed. Outcome: Progressing Note: Evaluation of progress towards goal: monitor s/s of infection, monitor labs, standard precautions Problem: Knowledge Deficit Goal: Patient/patient high school admissions representative demonstrates understanding of disease process, treatment [...] of 0 - 24 or indicated by [facility] Assessment Goal: Patient should be free from fall Description: Interventions: 1. [place] to environment 2. Hourly rounds addressing the [...] non-skid footwear 11. Teach patient and patient high school admissions representative to maintain environment for safety and [...] age 1-5 unclear semiology Electronically signed by: Elana Valerio MD 07/07/2024 7:10 AM Problem: Safety [...] at the bedside 7. Instruct patient/ patient high school admissions representative about use of safety devices 8. Include patient/ patient high school admissions representative in decisions related to safety Outcome: [...] hygiene technique. 7. Identify and instruct patient/patient high school admissions representative in use of appropriate isolation precautions for identified infection/symptoms. 8. Provide and discuss with patient/patient high school admissions representative on educational MDRO sheet. 9. Encourage and monitor nutritional status daily and consult facilities operations technician if indicated. 10. Implement neutropenic guidelines as needed. Outcome: Progressing Note: Evaluation of progress towards goal: Patient remains free of any signs of infection. Signs and symptoms being monitor such as fevers, chills, warm/red areas. Problem: Knowledge Deficit Goal: Patient/patient high school admissions representative demonstrates understanding of disease process, treatment [...] of 0 - 24 or indicated by [facility] Assessment Goal: Patient should be free from fall Description: Interventions: 1. [place] to environment 2. Hourly rounds addressing the [...] non-skid footwear 11. Teach patient and patient high school admissions representative to maintain environment for safety and [...] Description: INTERVENTIONS: 1. Encourage patient or legal high school admissions representative to report early pain and ask [...] per policy 9. Teach patient or legal high school admissions representative interventions for comforting Outcome: Completed Note: Evaluation of progress towards goal: Patient has no complaints of pain. Reassessed per policy. An attempt was made to interview the patient today in the presence of his . The patient refused and asked the writer producer to leave stating that he does not want a psychiatric evaluation. Psychiatry will sign off. Images from the original note were not included. DISCHARGE PLANNING NOTE [place] Clerk met with patient, introduced self, and explained role. Patient educated on safe discharge plan. Pt admitted 07/06/2024 with Dementia with behavioral disturbance ([facility]) [F03.918] At risk for long QT syndrome [Z91.89] Altered mental status [R41.82] per chart review. Consults: Neurology and Psychiatry Discharge Barriers per Daily Transition Rounds and chart review: Psych and neuro to see, will need EEG, MRI, CT brain. Past Medical History: Diagnosis Date GERD (gastroesophageal reflux disease) High cholesterol Perforated sigmoid colon ([facility]) Prior to admission patient was living with spouse/significant other and self care. Medical equipment patient used prior to admission includes: CPAP. Patient spouse denies need for transportation/ food/ prescription medication assistance resources. PCP: JAE LOPEZ MD Pharmacy:[facility] PCP and pharmacy confirmed with patient. [...] 07/06/24 11:02 AM documented in this encounter [facility] 07-22-2024 Nurse Note AVS discussed with patient and family, no further questions about discharge. No further needs identified. Patient taken downstairs by wheelchair to be driven home by . Patient still off unit at this time 11:58 s/p sedated MRI & LP procedure. Per neurologist, Dr Johnson, patient needs to remain flat 1-2hrs & may have regular diet. [place] Clerk awaiting patient return to unit & per report 1:1 sitter remains at patient bedside. documented in this encounter [facility] 07-22-2024 Plan of care note Problem: [...] at the bedside 7. Instruct patient/ patient high school admissions representative about use of safety devices 8. Include patient/ patient high school admissions representative in decisions related to safety Outcome: Progressing Note: Evaluation of progress towards goal: pt remains free from injury. Family at bedside. Problem: Knowledge Deficit Goal: Patient/patient high school admissions representative demonstrates understanding of disease process, treatment [...] Score of =/> 25 or indicated by [facility] Assessment Goal: Patient should be free from fall Description: Interventions: 1. [place] to environment 2. Hourly rounds addressing the [...] non-skid footwear 11. Teach patient and patient high school admissions representative to maintain environment for safety and [...] (cane, walker) within reach 19. Request patient high school admissions representative bring adaptive equipment/mobility aids from home or obtain and provide as needed 20. Consult pharmacy regarding effects of med's affecting mobility, cognition, and alternatives 21. Obtain physician order for PT if risk factors associated with mobility are present 22. Obtain physician order for OT as appropriate 23. Utilize diversional activities 24. Educate patient and patient high school admissions representative how to maintain a safe environment during visitation times (notify nurse prior to leaving bedside) 25. Consider appropriateness of medical or non-medical planner 26. Set up voiding schedule as appropriate (every 2 hours) Outcome: Progressing Note: Evaluation of progress towards goal: pt remains free from falls. Fall precautions in place and family at bedside Problem: Moderate - High Risk Fall Score Description: Gallegos Fall Score of =/> 25 or indicated by [facility] Assessment Goal: Patient should be free from fall Description: Interventions: 1. [place] to environment 2. Hourly rounds addressing the [...] non-skid footwear 11. Teach patient and patient high school admissions representative to maintain environment for safety and [...] (cane, walker) within reach 19. Request patient high school admissions representative bring adaptive equipment/mobility aids from home or obtain and provide as needed 20. Consult pharmacy regarding effects of med's affecting mobility, cognition, and alternatives 21. Obtain physician order for PT if risk factors associated with mobility are present 22. Obtain physician order for OT as appropriate 23. Utilize diversional activities 24. Educate patient and patient high school admissions representative how to maintain a safe environment during visitation times (notify nurse prior to leaving bedside) 25. Consider appropriateness of medical or non-medical planner 26. Set up voiding schedule as appropriate (every 2 hours) Outcome: Progressing Note: Evaluation of progress towards goal: pt remains free from falls. Fall precautions in place and family at bedside [facility] Work4 07-21-2024 Progress note Formatting of t his note might be different from the original. DISCHARGE PLANNING NOTE [place] Clerk spoke with RN KAY Graf and with weigh and charge worker Cm about current situation regarding appeal decision and DC plan to home with outpatient services. [place] Clerk placed a call to the who was in the patient's room due to the questions she had re: the discharge plan. [place] Clerk spoke with , Kari on 07/21/24 at 1325. [place] Clerk reviewed Eduardo's DC Appeal Determination Notification with the who confirmed that she had received a voicemail from [facility] this morning. [place] Clerk explained that Eduardo had agreed with the termination of hospital services after having reviewed the uploaded clinical documents from this hospitalization that writer producer had sent to them yesterday. expressed verbal understanding to writer producer of Eduardo's decision. [place] Clerk explained that patient's financial liability would begin at Noon on 07/22/24 and offered our care navigation assistance with obtaining transportation to home. had questions about why referrals were not made to fci facilities that family had now chosen, [facility] ([place]) and [facility]). [place] Clerk explained to the that the patient did not meet the clinical criteria this time for a fci/rehab facility level of care and reminded her that a discussion about this took place this past week/yesterday with the treatment team. explained that she never agreed to take her home and her and her family now want SNF placement. [place] Clerk continued to explain to the process of [...] prior to bringing him to the hospital. [place] Clerk offered supportive listening to the and also offered for her to connect with patient's PCP, Dr. Lopez after she gets her home for resources. [place] Clerk also discussed the outpatient TBI clinic appointment that was being discussed yesterday and that information would be included on patient's after visit summary. [place] Clerk explained that if was not going to make arrangements to take patient home by noon on 07/22, that patient's financial responsibility of $2640.00 per day would begin. expressed verbal understanding to writer producer. [place] Clerk emailed financial responsibility form with instruction to weigh and charge worker, Mylena (and cce'd today's RN Lesia Felton for awareness) for bedside delivery today. is aware of pending paper copy delivery of this form. - NELLI GLEZ FRONT DESK MONITOR CARE NAVIGATION 07/21/24 2:11 PM [facility] 07-21-2024 Progress note Formatting of t his note might be different from the original. DISCHARGE PLANNING NOTE We have received DC Appeal Determination Notification from BILL/Eduardo and BILL/Eduardo has agreed with the termination of services. Beneficiary liability begins 07.22.2024 by Irma. Beneficiary and/or beneficiary high school admissions representative were to be notified of determination via phone call. Joanta determination notification rec'd at 1032 and letter rec'd [phone] were received by writer producer via fax. [place] Clerk uploaded documents to document list. Documentation updated. [place] Clerk received forwarded voice mail 07/21/24 at 1032 from Eduardo Duran's Immediate Advocacy Department , who had left message on Care Navigation Department voice mail at 1617 on 07/20/24, stating he was representing patient's family who had called [facility] asking 1) why denial reason wasn't given re: transfer to another care facility and 2) if the preferred facility by family was able to accept. Reference Case # given from Roger [id number]. [place] Clerk attempted to call Roger back on 07/21/24 at 1214 and writer producer rec'd auto message from [facility] which stated only live phone calls with [facility] are Tuesday thru Tuesday. [place] Clerk left voicemail citing reference case # [id number]. [place] Clerk stated reason for return phone call and requested call back from Roger. - NELLI GLEZ FRONT DESK MONITOR CARE NAVIGATION 07/21/24 12[facility] [facility] [facility] 07-21-2024 Plan of care note Problem: [...] at the bedside 7. Instruct patient/ patient high school admissions representative about use of safety devices 8. Include patient/ patient high school admissions representative in decisions related to safety Outcome: Progressing Note: Evaluation of progress towards goal: Pain will be adequately controlled to allow for rest and adl's Problem: Knowledge Deficit Goal: Patient/patient high school admissions representative demonstrates understanding of disease process, treatment [...] Score of =/> 25 or indicated by [facility] Assessment Goal: Patient should be free from fall Description: Interventions: 1. [place] to environment 2. Hourly rounds addressing the [...] non-skid footwear 11. Teach patient and patient high school admissions representative to maintain environment for safety and [...] (cane, walker) within reach 19. Request patient high school admissions representative bring adaptive equipment/mobility aids from home or obtain and provide as needed 20. Consult pharmacy regarding effects of med's affecting mobility, cognition, and alternatives 21. Obtain physician order for PT if risk factors associated with mobility are present 22. Obtain physician order for OT as appropriate 23. Utilize diversional activities 24. Educate patient and patient high school admissions representative how to maintain a safe environment during visitation times (notify nurse prior to leaving bedside) 25. Consider appropriateness of medical or non-medical planner 26. Set up voiding schedule as appropriate (every 2 hours) Outcome: Progressing Note: Evaluation of progress towards goal: fall bundle Work4 07-21-2024 History of Present illness Narrative Images from the original note were not included. 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 Electronically signed by: LUIZ SHIPLEY MD, VLAIDMIR, FACP 07/21/2024 1:54 PM Preferred contact method: #1. Epic chat #2. [facility] team pager Available from 7 am to 7 pm Images from the original note were not included. [facility] Neurology General Neurology Consultation Progress Note Consult Neurology Service: [phone] Primary Team: [facility] Hospitalist Chief Concern and Reason for Consultation: cognitive decline Interval History: Estella Jeffery is a 59 y.o. year old male for whom Neurology was consulted for chief concern of cognitive decline. He has history of hyperlipidemia, complex sleep apnea, GERD, type 2 diabetes, major neurocognitive disorder with biomarkers confirmed early onset Alzheimer's disease (established at [facility] in October 2022), and epilepsy from [...] and proprioception throughout. Cerebellar: Able to do [id number]-womm bilaterally; normal coordination Gait and station: Deferred. [...] culture, negative VDRL, and negative cytology. Assessment: Estella Jeffery is a 59 y.o. year old male who is admitted due to altered mental status and rapid cognitive decline. He has history of hyperlipidemia, complex sleep apnea, GERD, type 2 diabetes, major neurocognitive disorder with biomarkers confirmed early onset Alzheimer's disease (established at [facility] in October 2022), and epilepsy from [...] to Tuesday 12-1:00 p.m. Primary Neurology service: [phone] Consult neurology service: [phone] Resident Stroke Service: [phone] If the patient belongs to the Stroke [facility]SHLE[facility] service please contact the Stroke [facility]SHLEE directly. Cosigned by Kelley Sofia MD at 07/21/2024 9:42 AM EST Associated attestation - Kelley Sofia MD - 07/21/2024 9:42 AM EST I have discussed the case of Estella Jeffery, including pertinent history and exam findings [...] from the original note were not included. [facility] HOSPITALIST PROGRESS NOTE 07/19/2024 Patient Name: Estella Jeffery : 1965 Code status: Problem List: Principal Problem: Dementia with behavioral disturbance ([facility]) Active Problems: Altered mental status Status post colostomy, follow-up exam ([facility]) Consulting Providers Provider Service Specialty Mina Franks MD Psychiatry Psychiatry Jessica Johnson MD -- Neurology Sonya Astudillo MD Z Physical Medicine and Rehabilitation Physical Medicine & Rehabilitation Chief complaint-behavioral issues 59-year-old male patient with Confirmed early onset Alzheimer's disease established in [facility] October 2022, patient had fall June [...] per family request. I also spoke with [facility] neurology 's office. They said that they are independent office and they do not have resources for transfer or admission to [facility]. They also will not be able [...] from the original note were not included. [facility] HOSPITALIST PROGRESS NOTE 07/18/2024 Patient Name: Estella Jeffery : 1965 Code status: Problem List: Principal Problem: Dementia with behavioral disturbance ([facility]) Active Problems: Altered mental status Status post colostomy, follow-up exam ([facility]) Consulting Providers Provider Service Specialty Mina Franks MD Psychiatry Psychiatry Jessica Johnson MD -- Neurology Sonya Astudillo MD Z Physical Medicine and Rehabilitation Physical Medicine & Rehabilitation Chief complaint-behavioral issues 59-year-old male patient with Confirmed early onset Alzheimer's disease established in [facility] October 2022, patient had fall June [...] today. Patient working with therapies. Going to [facility]. No new weakness. Objective: [...] left ulnar artery Dementia with behavioral disturbance ([facility]) Altered mental status Status post colostomy, follow-up exam ([facility]) PLAN Cont PT/OT - would recommend inpatient rehabilitation DVT prophylaxis - heparin 5000 units t.i.d. Agitation Seroquel, Depakote Pain management - Tylenol p.r.n. Dementia Aricept Monitor bowel/bladder/skin Per your medical management PQRS measures: I attest and have documented/reviewed all medications in patients chart Electronically signed by Silvestre Downs DO F.A.A.P.M.R. 07/17/2024 NUTRITION ADULT FOLLOW UP NUTRITION ASSESSMENT: Patient History: Brief Clinical Summary: Pt transferred and direct admitted to [facility] as a transfer from [facility] for neurological evaluation 2/2 aggressive behavior and hostility. PMH: early-onset dementia, T2DM, GERD, and perforated colon. Biochemical Data, Medical Tests, and Procedures: 07/16, restraints: pt now out of restraints with loan servicing representative at side Labs: Results from last 3 [...] (H) 05/10/2016 Lab Results Component Value Date [id number] 07/08/2024 Lab Results Component Value Date [...] capsule 500 mg 500 mg oral Q12H [facility] Nichol Heath MD 500 mg at 07/17/24 0918 donepeziL (ARICEPT) tablet 5 mg 5 mg oral Nightly Nichol Heath MD 5 mg at 07/16/242136 doxycycline (VIBRAMYCIN) capsule 100 mg 100 mg oral BID Luiz Shipley MD 100 mg at 07/17/24 1104 DULoxetine (CYMBALTA) DR capsule 20 mg 20 mg oral Daily Nichol Heath MD 20 mg at 07/17/24 09 glucagon HCL injection 1 mg 1 mg intramuscular PRN Nichol Heath MD heparin (porcine) injection 5,000 Units 5,000 Units subcutaneous Q8H [facility] Nichol Heath MD 5,000 Units at 07/17/24 0609 melatonin (CIRCADIN) tablet 5 mg 5 mg oral Nightly Cecile Henry MD 5 mg at 07/16/242137 nicotine (NICODERM CQ) 21 mg/24 hr 1 [...] Nichol Heath MD 50 mg at 07/17/24 0919 sennosides-docusate sodium (SENOKOT-S) 8.6-50 mg 1 tablet 1 tablet oral Q12H PRN Nichol Heath MD sodium chloride 0.9 % flush 3 mL 3 mL intravenous PRN Nichol Heath MD sodium chloride 0.9 % flush 3 mL 3 mL intravenous Q12H [facility] Nichol Heath MD 3 mL at 07/14/242113 sodium chloride 0.9 % flush bag 25 mL intravenous PRN Nichol Heath MD ziprasidone (GEODON) injection 10 mg 10 mg intramuscular Q6H PRN Lonnie Baker MD 10 mg at 07/12/24 0026 Nutrition Focused Physical Findings +wound incision to the back, +wound soft tissue necrosis of the left anterior elbow Skin (per nursing flow sheets): Skin Color: [place]; Pale (07/17/24904) Skin Temp: Warm; Dry (07/17/24904) Wound (per nursing flow sheets): Wound 07/11/24 Incision Back N/A-Site Assessment: Unable to assess (07/11/242109) Wound 07/16/24 Soft Tissue Necrosis Elbow Anterior;Left-Site Assessment: Red; Painful; Ecchymosis; Edema; Purple (07/17/24904) Gastrointestinal (per nursing flow sheets): Last BM Date: 07/17/24 (07/17/24904) Edema (per nursing flow sheets): Intake/ Output Last 24 hrs: Intake/Output Summary (Last 24 hours) at 07/17/2024 114 Last data filed at 07/16/2024 173 Gross per 24 hour Intake 480 ml [...] 15.5 oz) Admit Weight: 83.9 kg (unknown, /) Tell Body Weight: Unknown as no wt on file Weight Changes: No wt since admission 2/2 pt aggression Admit Body Mass Index: Same as current BMI Current Body Mass Index: Body mass index is 30.78 kg/m . Comparative Standards: Estimated Energy Needs: 4472-1983 kcals daily. Method and weight used: 25-32 kcal/kg IBW Estimated Protein Needs: 74-124 grams daily. Method and weight used: 1.2-2g protein/kg IBW Estimated Fluid Needs: 6116-3388 ml daily. Method weight used: 1 ml/kcal Comments: floor needs Malnutrition Status: Malnutrition Present: No NUTRITION DIAGNOSIS: Intake Diagnosis: Predicted suboptimal nutrient intake (NI 5.11.1)--ongoing NUTRITION INTERVENTIONS: Meals and Snacks: Continue per CLIP LOADING MACHINE ADJUSTER and medical team recommendations Supplements: Will add [...] from the original note were not included. [facility] HOSPITALIST PROGRESS NOTE 07/17/2024 Patient Name: Estella Jeffery : 1965 Code status: Problem List: Principal Problem: Dementia with behavioral disturbance ([facility]) Active Problems: Altered mental status Status post colostomy, follow-up exam ([facility]) Consulting Providers Provider Service Specialty Mina Franks MD Psychiatry Psychiatry Jessica Johnson MD -- Neurology Sonya Astudillo MD Z Physical Medicine and Rehabilitation Physical Medicine & Rehabilitation Chief complaint-behavioral issues 59-year-old male patient with Confirmed early onset Alzheimer's disease established in [facility] October 2022, patient had fall June [...] note were not included. [facility] Hospitalist [facility] 07/16/2024 Patient Name: Estella Jeffery : 1965 Problem List: Principal Problem: Dementia with behavioral disturbance ([facility]) Active Problems: Altered mental status Status post colostomy, follow-up exam ([facility]) Assessment Rapid onset Dementia with behavioral disturbances [...] Spinal Fluid culture includes gram stain, CSF [[id number]] Collected: 07/10/24 0939 Specimen: Cerebrospinal Fluid Updated: 07/15/24 0656 Gram Stain Result WHITE BLOOD CELLS PRESENT NO ORGANISMS SEEN ON CONCENTRATED SMEAR Culture NO GROWTH 5 DAYS Physical Medicine and Rehabilitation Daily Progress Note Today's Date and Time: 07/16/2024, 9:31 AM Subjective/Chief complaint: Dementia with behavioral disturbance ([facility]) Principal Problem: Dementia with behavioral disturbance ([facility]) Active Problems: Altered mental status Status post colostomy, follow-up exam ([facility]) SUBJECTIVE Resting in bed, [...] No results found for: ALB , PROT @LABRCNT[facility])@ No results found for: CRP No results [...] left ulnar artery Dementia with behavioral disturbance ([facility]) Altered mental status Status post colostomy, follow-up exam ([facility]) Recommendations/Plan: Continue PT, OT and speech therapy Contact guard assist with gait and transfers Will need 24 hour supervision Fall precautions, status post fall Family education Melatonin to regulate sleep cycle Awaiting on placement Will follow up with you for rehab needs Sonya Astudillo MD Images from the original note were not included. [facility] Hospitalist [facility] 07/15/2024 Patient Name: Estella Jeffery : 1965 Problem List: Principal Problem: Dementia with behavioral disturbance ([facility]) Active Problems: Altered mental status Status post colostomy, follow-up exam ([facility]) Assessment Rapid onset Dementia with behavioral disturbances [...] Spinal Fluid culture includes gram stain, CSF [[id number]] Collected: 07/10/24 0939 Specimen: Cerebrospinal Fluid Updated: [...] mental status Status post colostomy, follow-up exam ([facility]) SUBJECTIVE Resting in bed, no distress, Brief [...] left ulnar artery Dementia with behavioral disturbance ([facility]) Altered mental status Status post colostomy, follow-up exam ([facility]) Recommendations/Plan: Continue PT, OT and speech therapy Contact guard assist with gait and transfers Will need 24 hour supervision Fall precautions, status post fall Family education Melatonin to regulate sleep cycle Awaiting on placement Will follow up with you for rehab needs Sonya Astudillo MD Images from the original note were not included. [facility] Hospitalist [facility] 2024 Patient Name: Estella Jeffery : 1965 Problem List: Principal Problem: Dementia with behavioral disturbance ([facility]) Active Problems: Altered mental status Status post colostomy, follow-up exam ([facility]) Assessment Rapid onset Dementia with behavioral disturbances [...] Spinal Fluid culture includes gram stain, CSF [[id number]] Collected: 07/10/24 0939 Specimen: Cerebrospinal Fluid Updated: 07/14/24 09 Gram Stain Result WHITE BLOOD CELLS PRESENT NO ORGANISMS SEEN ON CONCENTRATED SMEAR Culture NO GROWTH 4 DAYS Physical Medicine and Rehabilitation Daily Progress Note Today's Date and Time: 2024, 8:23 AM Subjective/Chief complaint: Dementia with behavioral disturbance ([facility]) Principal Problem: Dementia with behavioral disturbance ([facility]) Active Problems: Altered mental status Status post colostomy, follow-up exam ([facility]) SUBJECTIVE Resting in bed, no distress, Brief [...] left ulnar artery Dementia with behavioral disturbance ([facility]) Altered mental status Status post colostomy, follow-up exam ([facility]) Recommendations/Plan: Continue PT, OT and speech therapy Contact guard assist with gait and transfers Will need 24 hour supervision Fall precautions, status post fall Family education Melatonin to regulate sleep cycle Awaiting on placement Will follow up with you for rehab needs Sonya Astudillo MD Images from the original note were not included. [facility] Hospitalist [facility] 07/13/2024 Patient Name: Estella Jeffery : 1965 Problem List: Principal Problem: Dementia with behavioral disturbance ([facility]) Active Problems: Altered mental status Status post colostomy, follow-up exam ([facility]) Assessment Rapid onset Dementia with behavioral disturbances [...] Spinal Fluid culture includes gram stain, CSF [[id number]] Collected: 07/10/24 0939 Specimen: Cerebrospinal Fluid Updated: 07/13/24 0730 Gram Stain Result WHITE BLOOD CELLS PRESENT NO ORGANISMS SEEN ON CONCENTRATED SMEAR Culture NO GROWTH 3 DAYS Physical Medicine and Rehabilitation Daily Progress Note Today's Date and Time: 07/13/2024, 9:28 AM Subjective/Chief complaint: Dementia with behavioral disturbance ([facility]) Principal Problem: Dementia with behavioral disturbance ([facility]) Active Problems: Altered mental status Status post colostomy, follow-up exam ([facility]) SUBJECTIVE Resting in bed, [...] No results found for: ALB , PROT @LABRCNT([facility]:3)@ No results found for: CRP No results [...] left ulnar artery Dementia with behavioral disturbance ([facility]) Altered mental status Status post colostomy, follow-up exam ([facility]) Recommendations/Plan: Continue PT, OT and speech therapy Contact guard assist with gait and transfers Will benefit from inpatient rehab, TBI Unit Will need 24 hour supervision Fall precautions, status post fall Family education Melatonin to regulate sleep cycle Will follow up with you for rehab needs Sonya Astudillo MD Images from the original note were not included. [facility] 07/12/2024 Patient Name: Estella Jeffery : 1965 Problem List: Principal Problem: Dementia with behavioral disturbance ([facility]) Active Problems: Altered mental status Status post colostomy, follow-up exam ([facility]) Assessment Rapid onset Dementia with behavioral disturbances [...] Spinal Fluid culture includes gram stain, CSF [[id number]] Collected: 07/10/24 0939 Specimen: Cerebrospinal Fluid Updated: 07/12/24 0736 Gram Stain Result WHITE BLOOD CELLS PRESENT NO ORGANISMS SEEN ON CONCENTRATED SMEAR Culture NO GROWTH 2 DAYS Images from the original note were not included. [facility] Neurology General Neurology Consultation Progress Note Consult Neurology Service: [phone] Chief Complaint and Reason for Consultation: Decline in mental status Brief Summary: Estella Jeffery is a 58 y.o. year old [...] with complete remission. He follows up with [facility] and had underwent a heavy [...] decline, Patient had presented to ED in [place] June 18 after waking up not oriented and delusional. Then June 25 he woke up again not knowing where he is delusional thinking his sister was an intruder so he was brought to [facility] and discharged later that evening. He was seen by social services technician referred to a mental health center and per family his mental status had worsened and they felt he was being overmedicated with Benadryl. 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 The impression there was no infectious or metabolic etiology so patient was transferred to [facility] for higher level of care. Interval History: [...] markers confirmed early onset Alzheimer's established in [facility] September 2022 (Dr. Lemuel Guerra) but reportedly functional at home per family, in addition to hyperlipidemia, GERD, T2DM. Patient was transferred found [facility] for higher level of care and workup of sharp decline in cognition since May 2024. Patient had presented multiple times to the ED and admitted [facility] for delusional thinking/hallucinations/agitatio n. Impression: Acute [...] arise. Arnulfo Haley MD PGY2 Neurology [facility] Seen and staffed with: Dr. Nails This patient is being followed by the Neurology Resident service. Contact attending directly during these hours: Tuesday to 7:30-8:30 A.M. to Tuesday 12-1:00 p.m. Primary Neurology service: [phone] Consult neurology service: [phone] Resident Stroke Service: [phone] If the patient belongs to the Stroke [...] any question or concerns. Zach Nails MD. Case Repairer of Neurology [facility] Images from the original note were not included. [facility] Hospital[facility] 07/11/2024 Patient Name: Estella Jeffery : 1965 Problem List: Principal Problem: [...] discharge, currently working on disposition. Refused from 1st adult psych facility DVT prophylaxis: Heparin Code Status: Full Plan [...] COMPARISON: July 03, 2024 brain MRI from [facility] Procedure: Multiplanar, multisequence imaging performed through [...] and cranio-cervical junction. Flow voids documented in [place]at[place] of [place] and dural venous sinuses. No [...] Spinal Fluid culture includes gram stain, CSF [[id number]] Collected: 07/10/24 0939 Specimen: Cerebrospinal Fluid Updated: 07/11/24 0718 Gram Stain Result WHITE BLOOD CELLS PRESENT NO ORGANISMS SEEN ON CONCENTRATED SMEAR Culture NO GROWTH <24 HRS Images from the original note were not included. [facility] Neurology General Neurology Consultation Progress Note Consult Neurology Service: [phone] Chief Complaint and Reason for Consultation: Decline in mental status Brief Summary: Estella Jeffery is a 58 y.o. year old [...] with complete remission. He follows up with [facility] and had underwent a heavy metal screen, [facility] analysis, MRI 2021 showing severe generalized [...] decline, Patient had presented to ED in [place] June 18 after waking up not oriented and delusional. Then June 25 he woke up again not knowing where he is delusional thinking his sister was an intruder so he was brought to [facility] and discharged later that evening. He was seen by social services technician referred to a mental health center and per family his mental status had worsened and they felt he was being overmedicated with Benadryl. 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 The impression there was no infectious or metabolic etiology so patient was transferred to [facility] for higher level of care. Interval History: [...] markers confirmed early onset Alzheimer's established in [facility] September 2022 (Dr. Lemuel Guerra) but reportedly functional at home per family, in addition to hyperlipidemia, GERD, T2DM. Patient was transferred found [facility] for higher level of care and workup of sharp decline in cognition since May 2024. Patient had presented multiple times to the ED and admitted [facility] for delusional thinking/hallucinations/agitatio n. Impression: Acute [...] follow. Arnulfo Haley MD PGY2 Neurology [facility] Seen and staffed with: Dr. Nails This patient is being followed by the Neurology Resident service. Contact attending directly during these hours: Tuesday to 7:30-8:30 A.M. to Tuesday 12-1:00 p.m. Primary Neurology service: [phone] Consult neurology service: [phone] Resident Stroke Service: [phone] If the patient belongs to the Stroke [...] evaluation and appropriate disposition. Zach Nails MD. Case Repairer of Neurology [facility] Images from the original note were not included. [facility] Hospitalist [facility] 07/10/2024 Patient Name: Estella Jeffery : 1965 Problem List: Principal Problem: [...] COMPARISON: July 03, 2024 brain MRI from [facility] Procedure: Multiplanar, multisequence imaging performed through [...] and cranio-cervical junction. Flow voids documented in [place] of [place] and dural venous sinuses. No [...] Spinal Fluid culture includes gram stain, CSF [[id number]] Resulted: 07/10/24 1055 Updated: 07/10/24 1148 Images from the original note were not included. [facility] 07/09/2024 Patient Name: Estella Jeffery : 1965 Problem List: Principal Problem: Dementia with behavioral disturbance ([facility]) Active Problems: Altered mental status Assessment [...] REPORT (Routine) EEG Service Date: 07/08/2024 HISTORY: Estella Jeffery is a 58 y.o. unknown hand [...] from the original note were not included. [facility] Neurology General Neurology Consultation Progress Note Consult Neurology Service: [phone] Chief Complaint and Reason for Consultation: Decline in mental status Brief Summary: Estella Jeffery is a 58 y.o. year old [...] with complete remission. He follows up with [facility] and had underwent a heavy [...] decline, Patient had presented to ED in [place] June 18 after waking up not oriented and delusional. Then June 25 he woke up again not knowing where he is delusional thinking his sister was an intruder so he was brought to [facility] and discharged later that evening. He was seen by social services technician referred to a mental health center and per family his mental status had worsened and they felt he was being overmedicated with Benadryl. 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 The impression there was no infectious or metabolic etiology so patient was transferred to [facility] for higher level of care. Interval History: [...] markers confirmed early onset Alzheimer's established in [facility] September 2022 (Dr. Lemuel Guerra) but reportedly functional at home per family, in addition to hyperlipidemia, GERD, T2DM. Patient was transferred found [facility] for higher level of care and workup of sharp decline in cognition since May 2024. Patient had presented multiple times to the ED and [facility] [facility]uc[facility]agitatio n. Impression: Acute [...] follow. Arnulfo Haley MD PGY2 Neurology [facility] Seen and staffed with: Dr. Nails This patient is being followed by the Neurology Resident service. Contact attending directly during these hours: Tuesday to 7:30-8:30 A.M. to Tuesday 12-1:00 p.m. Primary Neurology service: [phone] Consult neurology service: [phone] Resident Stroke Service: [phone] If the patient belongs to the Stroke [...] of violent/anger outburst/paranoid behavior. Zach Nails MD. Case Repairer of Neurology [facility] NUTRITION ADULT INITIAL EVALUATION [...] 11/24/2019 Performed by Skyler Bowen MD at [facility] 3YEARS AGO COLOSTOMY CLOSURE Social/ Cognitive/ Economic: Pt in an agitated state and screaming from room. Unable to see pt as RN reports he has been in a very agitated state at the time of RD visit. Brief Clinical Summary: Pt transferred and direct admitted to [facility] as a transfer from [facility] for neurological evaluation 2/2 aggressive behavior and [...] (H) 05/10/2016 Lab Results Component Value Date [id number] 526 07/08/2024 Lab Results Component Value Date [...] Nightly Nichol Heath MD 5 mg at 07/08/246 DULoxetine (CYMBALTA) DR capsule 20 mg 20 [...] Nightly Nichol Heath MD 75 mg at 07/08/246 And QUEtiapine (SEROquel) tablet 25 mg 25 [...] Skin (per nursing flow sheets): Skin Color: [place]; Pale (07/08/24827) Skin Temp: Warm; Dry (07/08/24827) [...] Weight: Unknown as no wt on file. Tell Body Weight: 61.8 kg Percent Tell Body Weight: 136 Weight Changes: No wt's on file to assess Body Mass Index: 30.7 kg^m2 BMI Category: Obese (> or = 30.0) Note: Calculations based on previous wt and ht on file from 06/24 07/22 no anthropometrics on file for this admission. Comparative Standards: Estimated Energy Needs: 9597-1539 kcals daily. Method and weight used: 25-32 kcal/kg IBW Estimated Protein Needs: 74-124 grams daily. Method and weight used: 1.2-2g protein/kg IBW Estimated Fluid Needs: 9678-5199 ml daily. Method weight used: 1 ml/kcal Comments: floor needs Malnutrition Status: Malnutrition Present: No NUTRITION DIAGNOSIS: Intake Diagnosis: Predicted suboptimal nutrient intake (NI 5.11.1) related to self monitoring deficit as evidenced by nursing screen reporting pt eating <50% of normal intake x 2 weeks. NUTRITION INTERVENTIONS: Meals and Snacks: Continue per CLIP LOADING MACHINE ADJUSTER and medical team recommendations Supplements: Will add on supplements based on RN screen. Can d/c if pt eating well consistently in the future. Add on Glucerna, TID to provide 220 kcal and 10 g protein per serving. Coordination of Care: Spoke with Anika COVARRUBIAS RECOMMENDATIONS: Document I/O's, Document PO intake, Document Supplement Intake, Obtain Daily Weight's GOAL(S): Meet 100% estimated nutrition needs NUTRITION MONITORING AND EVALUATION: Weight, labs, PO intake, GI function, I/Os, POC. Merary Hunt, MS, RD, LD, CDN Clinical Dietitian Images from the original note were not included. [facility] Physicians Hospitalist [facility] 07/08/2024 Patient Name: Estella Jeffery : 1965 Problem List: Principal Problem: [...] brain and lumbar puncture under sedation P.r.n. [place] EKG pending EEG completed, no epileptic focus [...] REPORT (Routine) EEG Service Date: 07/08/2024 HISTORY: Estella Jeffery is a 58 y.o. unknown hand [...] REPORT (Routine) EEG Service Date: 07/06/2024 HISTORY: Estella Jeffery is a 58 y.o. unknown hand [...] from the original note were not included. [facility] Neurology General Neurology Consultation Progress Note Consult Neurology Service: [phone] Chief Complaint and Reason for Consultation: Decline in mental status Brief Summary: Estella Jeffery is a 58 y.o. year old [...] with complete remission. He follows up with [facility] and had underwent a heavy metal screen, CC analysis, MRI 2021 showing severe generalized volume [...] decline, Patient had presented to ED in [place] June 18 after waking up not oriented and delusional. Then June 25 he woke up again not knowing where he is delusional thinking his sister was an intruder so he was brought to [facility] and discharged later that evening. He was seen by social services technician referred to a mental health center and per family his mental status had worsened and they felt he was being overmedicated with Benadryl. 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 The impression there was no infectious or metabolic etiology so patient was transferred to [facility] for higher level of care. Interval History: [...] markers confirmed early onset Alzheimer's established in [facility] September 2022 (Dr. Lemuel Guerra) but reportedly functional at home per family, in addition to hyperlipidemia, GERD, T2DM. Patient was transferred found [facility] for higher level of care and workup of sharp decline in cognition since May 2024. Patient had presented multiple times to the ED and admitted [facility] for delusional thinking/hallucinations/agitatio n. Impression: Acute [...] follow. Cecile Henry MD PGY-3 Neurology Resident [facility] Medicine Seen and staffed with: Dr. Nails This patient is being followed by the Neurology Resident service. Contact attending directly during these hours: Tuesday to 7:30-8:30 A.M. to Tuesday 12-1:00 p.m. Primary Neurology service: [phone] Consult neurology service: [phone] Resident Stroke Service: [phone] If the patient belongs to the Stroke [...] of violent/anger outburst/paranoid behavior. Zach Nails MD. Case Repairer of Neurology [facility] Images from the original note were not included. [facility] Neurology General Neurology Consultation Progress Note Consult Neurology Service: [phone] Chief Complaint and Reason for Consultation: Decline in mental status Brief Summary: Estella Jeffery is a 58 y.o. 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 He follows up with [facility] and had underwent a heavy [...] decline, Patient had presented to ED in [place] June 18 after waking up not oriented and delusional. Then June 25 he woke up again not knowing where he is delusional thinking his sister was an intruder so he was brought to [facility] and discharged later that evening. He was seen by social services technician referred to a mental health center and per family his mental status had worsened and they felt he was being overmedicated with Benadryl. 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 The impression there was no infectious or metabolic etiology so patient was transferred to [facility] for higher level of care. Interval History: [...] markers confirmed early onset Alzheimer's established in [facility] October 2022 in addition to hyperlipidemia, GERD, dm 2. Patient was transferred found [facility] for higher level of care and workup of sharp decline in cognition since May 2024. Patient had presented multiple times to the ED and admitted [facility] for delusional thinking/hallucinations/agitatio n. Impression: Acute [...] follow. Arnulfo Haley MD PGY2 Neurology [facility] Seen and staffed with: Dr. Nails This patient is being followed by the Neurology Resident service. Contact attending directly during these hours: Tuesday to 7:30-8:30 A.M. to Tuesday 12-1:00 p.m. Primary Neurology service: [phone] Consult neurology service: [phone] Resident Stroke Service: [phone] If the patient belongs to the Stroke [...] type), obtain routine EEG. Zach Nails MD. Case Repairer of Neurology [facility] of [facility] Images from the original note were not included. [facility] Hospitalist [facility] 07/07/2024 Patient Name: Estella Jeffery : 1965 Problem List: Principal Problem: [...] REPORT (Routine) EEG Service Date: 07/06/2024 HISTORY: Estella Jeffery is a 58 y.o. unknown hand [...] last 168 hours. documented in this encounter Work[facility] 07-21-2024 Plan of care note Problem: Safety [...] at the bedside 7. Instruct patient/ patient high school admissions representative about use of safety devices 8. Include patient/ patient high school admissions representative in decisions related to safety Outcome: Progressing Note: Evaluation of progress towards goal: pt remains free from injury Problem: Knowledge Deficit Goal: Patient/patient high school admissions representative demonstrates understanding of disease process, treatment [...] Score of =/> 25 or indicated by [facility] Assessment Goal: Patient should be free from fall Description: Interventions: 1. [place] to environment 2. Hourly rounds addressing the [...] non-skid footwear 11. Teach patient and patient high school admissions representative to maintain environment for safety and [...] (cane, walker) within reach 19. Request patient high school admissions representative bring adaptive equipment/mobility aids from home or obtain and provide as needed 20. Consult pharmacy regarding effects of med's affecting mobility, cognition, and alternatives 21. Obtain physician order for PT if risk factors associated with mobility are present 22. Obtain physician order for OT as appropriate 23. Utilize diversional activities 24. Educate patient and patient high school admissions representative how to maintain a safe environment during visitation times (notify nurse prior to leaving bedside) 25. Consider appropriateness of medical or non-medical planner 26. Set up voiding schedule as appropriate (every 2 hours) Outcome: Progressing Note: Evaluation of progress towards goal: fall precautions in place and pt remains free from falls [facility] 07-20-2024 Progress note Formatting of t his note might be different from the original. DISCHARGE PLANNING NOTE Patient's family has appealed his discharge & we have received notification from [facility] that a DC appeal has been called in. The chart, DND form, & IMM have been successfully uploaded by writer producer to the [facility] and successfully received by [facility]. [facility] will notify the of the patient of the appeal determination. [place] Clerk phone called patient's & read the DND notice to her. Paper copy of the DND notice to be delivered to the patient's bedside. [place] Clerk informed to anticipate phone call from [facility] re: determination of DC Appeal & encouraged wifeto answer the phone when [facility] calls. expressed verbal understanding of DND and the DC appeal process. - NELLI GLEZ FRONT DESK MONITOR CARE NAVIGATION 07/20/24 5:13 PM [facility] 07-20-2024 Consult note Associated Order (s): IP CONSULT TO NEUROSURGERY Images from the original note were not included. [facility] [address] [place] [address], [address] [place] [address] * NEUROSURGERY CONSULT NOTE DATE:07/20/2024 PATIENT'S NAME: Estella Jeffery PATIENT'S PATIENT'S : 1965 NEUROSURGERY ATTENDING: Dr. Villar REASON FOR CONSULT Small colloid Cyst on MRI HISTORY OF PRESENT ILLNESS Estella Jeffery is a 59 y.o. male with [...] 11/24/2019 Performed by Skyler Bowen MD at [facility] COLONOSCOPY [place] 3YEARS AGO COLOSTOMY CLOSURE PUNCTURE LUMBAR N/A 07/10/2024 Performed by Zach Nails MD at [facility] FAMILY HISTORY Family History Problem Relation [...] care per primary team FRAN Burton Neurosurgery [facility] Please contact via [employer] first then can utilize Patient touch/VoceraEdge if needed- 07/20/24 3:45 PM To find out which ASHLEE is on for the day please go to Throm[employer] and use log in [place] and search for PTH Neurosurgery FRAN Charles 07/20/24 1632 [facility] 07-20-2024 Consult note Associated Order (s): IP CONSULT TO NEUROSURGERY Images from the original note were not included. [facility] [address] [place] [address], [address] [place] [address] * NEUROSURGERY CONSULT NOTE DATE:07/20/2024 PATIENT'S NAME: Estella Jeffery PATIENT'S PATIENT'S : 1965 NEUROSURGERY ATTENDING: Dr. Villar REASON FOR CONSULT Small colloid Cyst on MRI HISTORY OF PRESENT ILLNESS Estella Jeffery is a 59 y.o. male with [...] Nightly, Nichol Heath MD, 5 mg at 07/19/24 2156 doxycycline (VIBRAMYCIN) capsule 100 mg, 100 mg, [...] 11/24/2019 Performed by Skyler Bowen MD at [facility] COLONOSCOPY [place] 3YEARS AGO COLOSTOMY CLOSURE PUNCTURE LUMBAR N/A 07/10/2024 Performed by Zach Nails MD at [facility] FAMILY HISTORY Family History Problem Relation [...] care per primary team FRAN Burton Neurosurgery [facility] Please contact via [employer] first then can utilize Patient touch/VoceraEdge if needed- 07/20/24 3:45 PM To find out which ASHLEE is on for the day please go to [employer] and use log in [place] [place] and search for PTH Neurosurgery FRAN Charles 07/20/24 1632 Images from the original note were not included. [facility] Neurology General Neurology Consult Note Primary Neurology service: [phone] Patient - Estella Jeffery Age - 59 y.o. - 1965 Date of Admission - 07/06/2024 7:28 AM Chief Complaint: TBI HPI: Estella Jeffery is a 59 y.o. year old [...] with complete remission. He follows up with [facility] and had underwent a heavy metal screen, [facility] analysis, MRI 2021 showing severe generalized [...] and symmetric in all four extremities. Coordination Trvhjf-re-vvgw, rapid alternating movements and pfda-gt-xnhz normal bilaterally without dysmetria. Gait Deferred. Psychiatric [...] biomarkers confirmed early onset diagnosis established in [facility] September 2022 but reportedly functional at home per family in addition to hyperlipidemia, GERD, dm 2. Patient was transferred from [facility] for higher level of care and [...] medication No further plans from Neurology standpoint Elana Valerio MD PGY-1 Neurology [facility] 07/19/24 1:[address] Sofia This patient is being followed by the Neurology Resident service. Contact attending directly during these hours: Tuesday to 7:30-8:30 A.M. to Tuesday 12-1:00 p.m. Primary Neurology service: [phone] Consult neurology service: [phone] Resident Stroke Service: [phone] If the patient belongs to the Stroke ASHLEE service please contact the Stroke ASHLEE directly. Cosigned by Kelley Sofia MD at 07/21/2024 9:42 AM EST Associated attestation - Kelley Sofia MD - 07/21/2024 9:42 AM EST Images from the original note were not included. I have discussed the case of Estella Jeffery, including pertinent history and exam findings [...] for: EAG Lab Results Component Value Date [id number] 526 07/08/2024 Neurological work up: CT head CTA head and neck MRI brain 05/07/2022 hippocampal volume loss. White matter changes. 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 male early-onset [...] reflux disease) High cholesterol Perforated sigmoid colon ([facility]) PSH Past Surgical History: Procedure Laterality Date ARM EXPLORATION WITH REPAIR LACERATED ULNAR ARTERY Left 11/24/2019 Performed by Skyler Bowen MD at [facility]ONOSCOPY [place] 3YEARS AGO COLOSTOMY CLOSURE Allergies Allergies Allergen [...] mg/dL Cytology Collection Time: 07/10/24 9:39 AM Narrative [facility] [address] [place] [address] Cytology Consultation Patient Name:ESTELLA JEFFERY:1965 (Age: 58)Gender:MTaken:07/10/2024Report ed:07/11/2024 16:49Physician(s):Arnulfo Haley M.D. ([phone])Copy To:Quinton Harrell M.D. Rec. #:[id number]: #[id number] Final Cytologic Diagnosis Cerebrospinal fluid: No malignant cells identified. 07/11/2024 Interpretation [place] [address], License number: [id number].Electronically Signed Out By Derick Lorenz MD Additional Report(s): Flow Cytometry-Surg/BM/NG Date Reported: # Immunophenotyping antibodies tested: CD3, CD4, CD5, CD7, CD8, CD19, CD20, CD45, Amasa, and Lambda. Immunophenotyping Comment: Immunophenotyping has been used in this diagnostic evaluation. This test was developed and its performance characteristics determined by the [facility] Clinical Laboratories Department. It has not been [...] MD Clinical History Dementia with behavioral disturbance ([facility]) F03.918, acute change in personality Gross Description Received was 2ml of clear colorless fluid unfixed labeled as Jeffery, CSF . Also received is one cytospin slide from Hematology. Source of Specimen Cerebrospinal fluid Non LEGAL BILLING ANALYST ThinPrep, Cytospin Slide Fee Code(s): 1; 36022 VDRL, Spinal Fluid Collection Time: 07/10/24 9:39 [...] Assessment/Plan Principal Problem: Dementia with behavioral disturbance ([facility]) Active Problems: Altered mental status Status post colostomy, follow-up exam ([facility]) Acute mental status change patient also was [...] CHIEF COMPLAINT: Dementia with behavioral disturbance (CMS-HCC) Estella Jeffery is a 58 y.o. male who presents with Dementia with behavioral disturbance (CMS-HCC) .he is HISTORY OF PRESENT ILLNESS: The patient is a 58-year-old [place] male treatment at the [facility] for the patient has a substantial history of dyslipidemia, sleep apnea, type 2 diabetes mellitus, recent diagnosed history of early-onset Alzheimer's dementia, an epileptic disorder in remission, as well as a recent admission to [facility] for altered mental status. An MRI [...] 11/24/2019 Performed by Skyler Bowen MD at [facility] 3YEARS AGO COLOSTOMY CLOSURE Medications [...] from the original note were not included. [facility] Neurology General Neurology Consult Note Primary Neurology service: [phone] Chief Complaint: HPI: Estella Jeffery is a 58 y.o. 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 He follows up with [facility] and had underwent a heavy metal screen, [facility] analysis, MRI 2021 showing severe generalized [...] decline, Patient had presented to ED in [place] June 18 after waking up not oriented and delusional. Then June 25 he woke up again not knowing where he is delusional thinking his sister was an intruder so he was brought to [facility] and discharged later that evening. He was seen by social services technician referred to a mental health center and per family his mental status had worsened and they felt he was being overmedicated with Benadryl. 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 The impression there was no infectious or metabolic etiology so patient was transferred to [facility] for higher level of care. On my evaluation patient was restless fidgeting and did not allow me to speak him or enter the room, he would tell me his family members names what refused to tell me his name asked me to leave the room. I could not do any assessment Dickerson test or neurological exam. Per family patient had not received his morning medication. History: Past Medical History/Surgical History: Active Ambulatory Problems Diagnosis Date Noted Laceration of left ulnar artery 11/24/2019 Resolved Ambulatory Problems Diagnosis Date Noted No Resolved Ambulatory Problems Past Medical History: Diagnosis Date GERD (gastroesophageal reflux disease) High cholesterol Perforated sigmoid colon ([facility]) Family History: Family History Problem Relation Age [...] markers confirmed early onset Alzheimer's established in [facility] October 2022 in addition to hyperlipidemia, GERD, dm 2. Patient was transferred found [facility] for higher level of care and workup of sharp decline in cognition since May 2024. Patient had presented multiple times to the ED and admitted [facility] for delusional thinking/hallucinations/agitatio n. On evaluation [...] recommend avoiding. Resume home medications once reconciled. Elana Valerio MD PGY-1 Neurology [facility] 07/06/24 9:[address] Sofia This patient is being followed by the Neurology Resident service. Contact attending directly during these hours: Tuesday to 7:30-8:30 A.M. to Tuesday 12-1:00 p.m. Primary Neurology service: [phone] Consult neurology service: [phone] Resident Stroke Service: [phone] If the patient belongs to the Stroke ASHLEE service please contact the Stroke ASHLEE directly. Cosigned by Kelley Sofia MD at 07/06/2024 11:32 PM EST Associated attestation - Kelley Sofia MD - 07/06/2024 11:32 PM EST Kelley Sofia MD Neurology documented in this encounter [facility] 07-20-2024 Hospital Discharge instructions Luiz Shipley MD - 07/20/2024 3:28 PM EST 07/30 at 12:40 Hospital follow up with Fidelina Fisher CNP [facility] [place] [id number] [place] [address] Please follow up with Neurosurgery [...] Hospital follow up with Fidelina Fisher CNP [facility] [address] [place] [address] Pt. should bring the following [...] For NEW patients, MD will not prescribe residential pain medication. The following attachments cannot be sent through Care Everywhere.Dementia Discharge Instructions (Nepalese)Time to stop driving? (Nepalese)Dementia (including Alzheimer disease) (Nepalese)documented in this encounter [facility] 07-20-2024 Plan of care note Problem: Safety [...] at the bedside 7. Instruct patient/ patient high school admissions representative about use of safety devices 8. Include patient/ patient high school admissions representative in decisions related to safety Outcome: Progressing Note: Evaluation of progress towards goal: Patient remains injury free at this time. Problem: Knowledge Deficit Goal: Patient/patient high school admissions representative demonstrates understanding of disease process, treatment [...] Score of =/> 25 or indicated by [facility] Assessment Goal: Patient should be free from fall Description: Interventions: 1. [place] to environment 2. Hourly rounds addressing the [...] non-skid footwear 11. Teach patient and patient high school admissions representative to maintain environment for safety and [...] (cane, walker) within reach 19. Request patient high school admissions representative bring adaptive equipment/mobility aids from home or obtain and provide as needed 20. Consult pharmacy regarding effects of med's affecting mobility, cognition, and alternatives 21. Obtain physician order for PT if risk factors associated with mobility are present 22. Obtain physician order for OT as appropriate 23. Utilize diversional activities 24. Educate patient and patient high school admissions representative how to maintain a safe environment during visitation times (notify nurse prior to leaving bedside) 25. Consider appropriateness of medical or non-medical planner 26. Set up voiding schedule as appropriate (every 2 hours) Outcome: Progressing Note: Evaluation of progress towards goal: Patient remains free from falls at this time. [facility] 07-20-2024 Telephone encounter Note Spoke to , Kari. Pt is currently at [facility]. Pt is being denied an admit to rehab facility. I am unable to view notes from that hospital. Suggestion given to try [facility] as [facility] does not have a TBI clinic. Family will have to work with staff at [facility]. Verbalized understanding. [facility] 07-20-2024 Miscellaneous Notes Spoke to , Kari. Pt is currently at [facility]. Pt is being denied an admit to rehab facility. I am unable to view notes from that hospital. Suggestion given to try [facility] does not have a TBI clinic. Family will have to work with staff at [facility]. Verbalized understanding. Spoke with Dr Harmon (sp?) from [facility] regarding patient. Family is requesting transfer to a [facility] TBI center, inpatient. I advised that Dr Guerra cannot assist in this matter. Patient mailbox is full unable to leave message Patient returned your call and can be reached at: Call patient at: on cell [phone] (home) [phone] (cell) documented in this encounter [facility] 07-20-2024 Progress note Formatting of t his note might be different from the original. DISCHARGE PLANNING NOTE 07/30 at 12:40 Hospital follow up with Fidelina Fisher CNP [facility] [address] [place], [place] [id number] [facility] 07-20-2024 Hospital course Narrative Images from the original note were not included. 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 Also contacted [facility], per family request. Spoke with Dr.Mary [...] outpatient workup. I also spoke with Neurosurgery WRITER PRODUCER Victorina Marcelino, and have made arrangements for [...] data in the 24 hours ending 07/20/24 4658 Physical Exam Constitutional: General: He is not [...] diet Follow up: Jae Lopez MD [address] [facility] [address] Schedule an appointment as soon as possible for a visit in 1 week(s) Jessica Johnson MD [address] [facility] [facility] [id number] Schedule an appointment as soon as possible for a visit in 2 week(s) 07/30 at 12:40 Hospital follow up with Fidelina Fisher CNP [facility] [address] [place], [place] [id number] Please follow up with Neurosurgery for colitis [...] 07/20/2024 4:18 PM documented in this encounter [facility] 07-20-2024 Progress note Formatting of t his note might be different from the original. Confirmed with Taylor at [facility] she did receive the updated notes (neuro, PMR, PT/OT) that were faxed and uploaded to [facility]. She is almost finishing writing it up for physician review and will call us with their determination by 10am. 9:31 am Received call from Taylor at [facility] IPR-she reviewed updated notes with medical office assistant instructor and they remain unable to accept after our 3rd request for review. She said he is doing too well functionally, does not need OT/PT services. She said after discussion with medical office assistant instructor their facility would be of no benefit to the patient. This information was communicated to interdisciplinary team via epic chat [facility] 07-20-2024 Telephone encounter Note Received transfer center request to discuss with referring physician. Briefly, this patient with baseline cognitive impairment (? Early AD) had a fall with closed head injury and behavioral changes post-fall. He is medically stable and behavior has improved. Referrals were made to multiple TBI rehab facilities and all declined. The family requests transfer to [facility] inpatient service for further cognitive evaluation and management. It sounds like the patient is appropriately managed thus far and has no ongoing inpatient care needs. Thus, hospital to hospital transfer is not likely to be beneficial. We discussed the 3 neurorehab centers in our network. Referring MD will confirm with lead case manager that referrals were sent to all 3. If the patient is discharged home or to SNF, we can potentially expedite an appointment with our PMR colleagues/TBI multidisciplinary clinic. I will alert Drs. Aguilar and Earl to the referral. Janice Mcdermott MD [facility] Work Phone: 07-20-2024 Miscellaneous Notes Received transfer center request to discuss with referring physician. Briefly, this patient with baseline cognitive impairment (? Early AD) had a fall with closed head injury and behavioral changes post-fall. He is medically stable and behavior has improved. Referrals were made to multiple TBI rehab facilities and all declined. The family requests transfer to [facility] inpatient service for further cognitive evaluation and management. It sounds like the patient is appropriately managed thus far and has no ongoing inpatient care needs. Thus, hospital to hospital transfer is not likely to be beneficial. We discussed the 3 neurorehab centers in our network. Referring MD will confirm with lead case manager that referrals were sent to all 3. If the patient is discharged home or to SNF, we can potentially expedite an appointment with our PMR colleagues/TBI multidisciplinary clinic. I will alert Drs. Aguilar and Earl to the referral. Janice Mcdermott MD documented in this encounter [facility] 07-20-2024 Progress note Formatting of t his note might be different from the original. DISCHARGE PLANNING NOTE Sent face sheet to [facility] for hospital transfer via secure fax to # [phone] [facility] 07-20-2024 Progress note Formatting of t his note might be different from the original. DISCHARGE PLANNING NOTE Discharge plan- awaiting responses from [facility] if they can accept. Tasked [facility] to send neuro note from yesterday to them again. Tasked CN to fax his face sheet to [facility] per physician request since she is calling them about a hospital to hospital transfer per families request. Leadership team aware. - NANCY PARRISH 07/20/24 8:19 AM Discussed patient and d/c planning with leadership team. Everyone in agreement with d/c today since per physician [facility] can not accept as a hospital transfer and [facility] has denied as well. Physician and this writer producer spoke with patient, and sister that is present re: d/c today and that patient will be going home with outpatient ST and an appointment has been made for a TBI clinic for follow up. Provided IMM to and explained. Leadership aware. - NANCY PARRISH 07/20/24 11:29 AM [facility] 07-20-2024 Progress note Formatting of t his note might be different from the original. DISCHARGE PLANNING NOTE Neuro Note sent to [facility] (P# [phone] ; F# [phone]) [facility] and via [employer]. [facility] 07-[facility]24 Plan of care note Problem: Safety [...] at the bedside 7. Instruct patient/ patient high school admissions representative about use of safety devices 8. Include patient/ patient high school admissions representative in decisions related to safety Outcome: Progressing Note: Evaluation of progress towards goal: Pt remains free from injury and significant other at bedside Problem: Knowledge Deficit Goal: Patient/patient high school admissions representative demonstrates understanding of disease process, treatment [...] Score of =/> 25 or indicated by [facility] Assessment Goal: Patient should be free from fall Description: Interventions: 1. [place] to environment 2. Hourly rounds addressing the [...] non-skid footwear 11. Teach patient and patient high school admissions representative to maintain environment for safety and [...] (cane, walker) within reach 19. Request patient high school admissions representative bring adaptive equipment/mobility aids from home or obtain and provide as needed 20. Consult pharmacy regarding effects of med's affecting mobility, cognition, and alternatives 21. Obtain physician order for PT if risk factors associated with mobility are present 22. Obtain physician order for OT as appropriate 23. Utilize diversional activities 24. Educate patient and patient high school admissions representative how to maintain a safe environment during visitation times (notify nurse prior to leaving bedside) 25. Consider appropriateness of medical or non-medical planner 26. Set up voiding schedule as appropriate (every 2 hours) Outcome: Progressing Note: Evaluation of progress towards goal: pt remains free from falls and fall precautions are in place [facility] 07-19-2024 Progress note Formatting of t his note might be different from the original. DISCHARGE PLANNING NOTE Updates to [facility] (P# [phone] ; F# [phone]) [facility] 07-19-2024 Progress note Formatting of t [...] therapy per MARCI Rothman Equipment: gait belt Telemetry/Wort Extractor: No Oxygen Used: room air Other: fall [...] Date/Time User Outcome 07/19/24 1445 Yoanna Han-Mahoney, CAR VARNISHER/L Progressing 07/17/24 1439 Yoanna Han-Mahoney, CAR VARNISHER/L Progressing Problem: Bathing LB Dates: Start: 07/13/24 [...] Date/Time User Outcome 07/19/24 1445 Yoanna Guille-Mahoney, CAR VARNISHER/L Progressing 07/17/24 1439 Yoanna Han-Mahoney, CAR VARNISHER/L Progressing Problem: Dressing LB Dates: Start: 07/13/24 [...] Date/Time User Outcome 07/19/24 1445 Yoanna Han-Mahoney, CAR VARNISHER/L Progressing 07/17/24 1439 Yoanna Han-Mahoney, KWADWO/L Progressing Problem: Grooming Dates: Start: 07/13/24 Disciplines: OT Goal: Patient will perform grooming Independently Dates: Start: 07/13/24 Expected End: 08/13/24 Description: Goal Description: Disciplines: OT Outcomes Date/Time User Outcome 07/17/24 1439 Yoanna Han-Mahoney, CAR VARNISHER/L Progressing Problem: Standing Balance Dates: Start: 07/13/24 Disciplines: OT Goal: Improve balance to normal Dates: Start: 07/13/24 Expected End: 08/13/24 Description: Normal dynamic balance. Disciplines: OT Outcomes Date/Time User Outcome 07/19/24 1445 Yoanna Han-Mahoney, KWADWO/L Progressing 07/17/24 1439 Yoanna Han-Mahoney, CAR VARNISHER/L Progressing Problem: Toilet Transfers Dates: Start: 07/13/24 [...] Date/Time User Outcome 07/17/24 1439 Yoanna Han-Mahoney, CAR VARNISHER/L Progressing Problem: Transfers Dates: Start: 07/13/24 Disciplines: OT Goal: Patient will perform transfers Independently Dates: Start: 07/13/24 Expected End: 08/13/24 Description: Goal Description: Disciplines: OT Outcomes Date/Time User Outcome 07/19/24 1445 EN Hogan Progressing 07/17/24 1439 EN Hogan Progressing Occupational Therapy Care Plan (Resolved) There are no resolved problems. Principal Problem: Dementia with behavioral disturbance ([facility]) Active Problems: Altered mental status Status post colostomy, follow-up exam ([facility]) Cosigned by MAYNOR Dillon/Jerome at 07/19/2024 3:13 PM EST Associated attestation - Veronica Gorman OTR/Jerome - 07/19/2024 3:13 PM EST I have reviewed and agree with this note and education documentation for this visit. [facility] 07-19-2024 Progress note Formatting of t his [...] 6 Clicks: Basic Mobility Raw Score: 20 [facility] G Code Modifier: CJ Patient Response to Treatment: Slow progress, decreased activity tolerance Assessment Patient Assessment Patient Response to Treatment: Slow progress, decreased activity tolerance Visit RN Communication: Yes Medical Record Reviewed: Yes PT Type of Visit: Treatment Precautions Activity: ok for therapy per MARCI Rothman Equipment: gait belt Telemetry/Wort Extractor: Yes Oxygen Used: room air Other: fall [...] Goal: Patient will perform stairs/curb with Modified [place] Dates: Start: 07/13/24 Expected End: 07/27/24 Description: [...] problems. Principal Problem: Dementia with behavioral disturbance ([facility]) Active Problems: Altered mental status Status post colostomy, follow-up exam ([facility]) Cosigned by Jose Gorman PT at 07/19/2024 3:14 PM EST Associated attestation - Jose Gorman, PT - 07/19/2024 3:14 PM EST I have reviewed and agree with this note and education documentation for this visit. [facility] 07-19-2024 Plan of care note Problem: [...] at the bedside 7. Instruct patient/ patient high school admissions representative about use of safety devices 8. Include patient/ patient high school admissions representative in decisions related to safety Outcome: Progressing Note: Evaluation of progress towards goal: Patient remains injury free at this time. Problem: Knowledge Deficit Goal: Patient/patient high school admissions representative demonstrates understanding of disease process, treatment [...] Score of =/> [facility] Goal: Patient should be free from fall Description: Interventions: 1. [place] to environment 2. Hourly rounds addressing the [...] non-skid footwear 11. Teach patient and patient high school admissions representative to maintain environment for safety and [...] (cane, walker) within reach 19. Request patient high school admissions representative bring adaptive equipment/mobility aids from home or obtain and provide as needed 20. Consult pharmacy regarding effects of med's affecting mobility, cognition, and alternatives 21. Obtain physician order for PT if risk factors associated with mobility are present 22. Obtain physician order for OT as appropriate 23. Utilize diversional activities 24. Educate patient and patient high school admissions representative how to maintain a safe environment during visitation times (notify nurse prior to leaving bedside) 25. Consider appropriateness of medical or non-medical planner 26. Set up voiding schedule as appropriate (every 2 hours) Outcome: Progressing Note: Evaluation of progress towards goal: Patient remains free from falls. [facility] 07-19-2024 Consult note Formatting of th is note is different from the original. Images from the original note were not included. [facility] Neurology General Neurology Consult Note Primary Neurology service: [phone] Patient - Estella Jeffery Age - 59 y.o. - 1965 Date of Admission - 07/06/2024 7:28 AM Chief Complaint: TBI HPI: Estella Jeffery is a 59 y.o. year old [...] with complete remission. He follows up with [facility] and had underwent a heavy [...] and symmetric in all four extremities. Coordination [id number], rapid alternating movements and hpmn-ja-[id number] normal bilaterally without dysmetria. Gait Deferred. Psychiatric [...] biomarkers confirmed early onset diagnosis established in [facility] September 2022 but reportedly functional at home per family in addition to hyperlipidemia, GERD, dm 2. Patient was transferred from [facility] for higher level of care and [...] medication No further plans from Neurology standpoint Elana Valerio MD PGY-1 Neurology [facility] 07/19/24 1:[address] Sofia This patient is being followed by the Neurology Resident service. Contact attending directly during these hours: Tuesday to 7:30-8:30 A.M. to Tuesday 12-1:00 p.m. Primary Neurology service: [phone] Consult neurology service: [phone] Resident Stroke Service: [phone] If the patient belongs to the Stroke [facility] service please contact the Stroke [facility] directly. Cosigned by Kelley Sofia MD at 07/21/2024 9:42 AM EST Associated attestation - Kelley Sofia MD - 07/21/2024 9:42 AM EST Images from the original note were not included. I have discussed the case of Estella Jeffery, including pertinent history and exam findings [...] for: EAG Lab Results Component Value Date [id number] 07/08/2024 Neurological work up: CT head CTA head and neck MRI brain 05/07/2022 hippocampal volume loss. White matter changes. 2 D echo Assessment and recommendations Delirium superimposed on baseline cognitive impairment Presyncope likely neurocardiogenic Hypotension Early-onset Alzheimer disease confirmed with bio markers at [facility] Upon examination patient is awake, is [...] meaning can be extrapolated by contextual derivation. [facility] Work Phone: 07-19-2024 Telephone encounter Note Spoke with Dr Harmon (sp?) from [facility] regarding patient. Family is requesting transfer to a [facility] TBI center, inpatient. I advised that Dr Guerra cannot assist in this matter. [facility] 07-19-2024 Progress note Formatting of t his note might be different from the original. DISCHARGE PLANNING NOTE Updates to [facility] (P# ; F# ) [employer] [facility] 07-19-2024 Progress note Formatting of t his note is different from the original. Images from the original note were not included. DISCHARGE PLANNING NOTE Discussed patient today during rounds. Plan-TBI center VS IPR. This writer producer and floor Mgr spoke with patient's over the phone and his sister in his room re: d/c planning. Updated them that [facility] has denied. [facility] accept as well as sending blanketed SNF referrals. They are in agreement with sending to [facility] at this time and will let us know today if they would like SNF referrals sent or if the back up plan would be home. Tasked [facility] to send referral to [facility]. Leadership team aware. Services Requested: Services Requested Patient expects to be discharged to:: TBI center VS IPR Discharge Disposition: Acute rehab Patient Goals: Goals: Goals (pt-stated) Evaluation of progress towards goal: TBI center vs IPR - NANCY PARRISH 07/19/24 10:42 AM This writer producer and wood strip block floor installer and Dr. Shipley spoke with patient, and sister re: d/c planning. They are aware that [facility] is still reviewing referral. Asked if SNF referrals can be sent and they declined stating they would like the physician to see if she can get him transferred to [facility] as a physician to physician transfer. Updated Leadership. If neither of these hospitals can accept then patient to d/c home with since SNF has been declined. - NANCY PARRISH 07/19/24 12:14 PM This writer producer and floor mgr spoke with family to let them know [facility] has denied patient and that they recommend SNF for him. Tasked [facility] to send neuro note from today to [facility] to see if they can accept him with this updated note. Leadership aware. - NANCY PARRISH 07/19/24 3:21 PM [facility] 07-19-2024 Plan of care note Problem: Safety [...] at the bedside 7. Instruct patient/ patient high school admissions representative about use of safety devices 8. Include patient/ patient high school admissions representative in decisions related to safety Outcome: Progressing Note: Evaluation of progress towards goal: Problem: Knowledge Deficit Goal: Patient/patient high school admissions representative demonstrates understanding of disease process, treatment [...] Progressing Note: Evaluation of progress towards goal: [facility] 07-19-2024 Plan of care note Problem: [...] at the bedside 7. Instruct patient/ patient high school admissions representative about use of safety devices 8. Include patient/ patient high school admissions representative in decisions related to safety Outcome: Progressing Note: Evaluation of progress towards goal: Problem: Knowledge Deficit Goal: Patient/patient high school admissions representative demonstrates understanding of disease process, treatment [...] Progressing Note: Evaluation of progress towards goal: [facility] 07-18-2024 Plan of care note Problem: Safety [...] at the bedside 7. Instruct patient/ patient high school admissions representative about use of safety devices 8. Include patient/ patient high school admissions representative in decisions related to safety Outcome: Progressing Note: Evaluation of progress towards goal: patient is injury free at this time. Problem: Knowledge Deficit Goal: Patient/patient high school admissions representative demonstrates understanding of disease process, treatment [...] Score of =/> 25 or indicated by [facility] Assessment Goal: Patient should be free from fall Description: Interventions: 1. [place] to environment 2. Hourly rounds addressing the [...] non-skid footwear 11. Teach patient and patient high school admissions representative to maintain environment for safety and [...] (cane, walker) within reach 19. Request patient high school admissions representative bring adaptive equipment/mobility aids from home or obtain and provide as needed 20. Consult pharmacy regarding effects of med's affecting mobility, cognition, and alternatives 21. Obtain physician order for PT if risk factors associated with mobility are present 22. Obtain physician order for OT as appropriate 23. Utilize diversional activities 24. Educate patient and patient high school admissions representative how to maintain a safe environment during visitation times (notify nurse prior to leaving bedside) 25. Consider appropriateness of medical or non-medical planner 26. Set up voiding schedule as appropriate (every 2 hours) Outcome: Progressing Note: Evaluation of progress towards goal: Patient is free from falls at this time. [facility] Progress note Formatting of t his note might be different from the original. DISCHARGE PLANNING NOTE Referral sent to [facility] (P# [phone] ; F# [phone]) [facility] 07-18-2024 Telephone encounter Note Patient mailbox is full unable to leave message [facility] 07-18-2024 Progress note Formatting of t his note is different from the original. Images from the original note were not included. DISCHARGE PLANNING NOTE Discussed patient today during rounds. Patient's requested updates be sent to [facility]. Tasked [facility] to send. Leadership team aware as well as floor nurse. Barriers- acceptance, auth. Services Requested: Services Requested Patient expects to be discharged to:: home vs snf Patient Goals: Goals: Goals (pt-stated) Evaluation of progress towards goal: TBD-pending PT/OT eval - NANCY PARRISH 07/18/24 10:30 AM Still awaiting response from [facility] if they can accept patient. Leadership team aware. Floor mgr has spoken with family to update them. - NANCY PARRISH 07/18/24 2:50 PM [facility] Telephone encounter Note Patient returned your call and can be reached at: Call patient at: on cell [phone] (home) [phone] (cell) [facility] 07-18-2024 Telephone encounter Note -LVMTCB We are unable to assist in this matter. Pt last seen 04/2022 [facility] 07-18-2024 Miscellaneous Notes -LVMTCB We are unable to assist in this matter. Pt last seen 04/2022 Pt fell and is in [facility] and is requesting help with getting pt transferred to a [facility] facility Please call pts [phone] documented in this encounter [facility] 07-17-2024 Plan of care note [...] at the bedside 7. Instruct patient/ patient high school admissions representative about use of safety devices 8. Include patient/ patient high school admissions representative in decisions related to safety Outcome: [...] Score of =/> 25 or indicated by [facility] Assessment Goal: Patient should be free from fall Description: Interventions: 1. [place] to environment 2. Hourly rounds addressing the [...] non-skid footwear 11. Teach patient and patient high school admissions representative to maintain environment for safety and [...] (cane, walker) within reach 19. Request patient high school admissions representative bring adaptive equipment/mobility aids from home or obtain and provide as needed 20. Consult pharmacy regarding effects of med's affecting mobility, cognition, and alternatives 21. Obtain physician order for PT if risk factors associated with mobility are present 22. Obtain physician order for OT as appropriate 23. Utilize diversional activities 24. Educate patient and patient high school admissions representative how to maintain a safe environment during visitation times (notify nurse prior to leaving bedside) 25. Consider appropriateness of medical or non-medical planner 26. Set up voiding schedule as appropriate (every 2 hours) Outcome: Progressing Note: Evaluation of progress towards goal: Patient will remain free from falls. [facility] 07-17-2024 Progress note Formatting of t his note might be different from the original. DISCHARGE PLANNING NOTE Referral sent to. [facility] (P# [phone] ; F# [phone], ) [facility] Work[facility] 07-17-2024 Progress note Formatting of t his [...] Rothman Equipment: gait belt and chair alarm Telemetry/Wort Extractor: Yes Oxygen Used: room air Other: fall [...] Goal: Patient will perform stairs/curb with Modified [place] Dates: Start: 07/13/24 Expected End: 07/27/24 Description: [...] Note filed on 07/17/24 1443 by Vinod Vaac PTA Evaluation of progress towards goal: Physical Therapy Care Plan (Resolved) There are no resolved problems. Principal Problem: Dementia with behavioral disturbance ([facility]) Active Problems: Altered mental status Status post colostomy, follow-up exam ([facility]) Cosigned by Janice Nuno PT at 07/18/2024 7:18 AM EST Associated attestation - Janice Nuno PT - 07/18/2024 7:18 AM EST I have reviewed and agree with this note and education documentation for this visit. [facility] 07-17-2024 Progress note Formatting of t [...] up) Scoring Daily Activity Raw Score: 19 [facility] G Code Modifier: CK Therapy Plan [...] Rothman Equipment: gait belt and chair alarm Telemetry/Wort Extractor: Yes Oxygen Used: room air Other: fall [...] Outcomes Date/Time User Outcome 07/17/24 1439 Yoanna Ellsworth CAR VARNISHER/L Progressing Problem: Dressing LB Dates: Start: 07/13/24 [...] Outcomes Date/Time User Outcome 07/17/24 1439 Yoanna Villarealales-Mahoney, KWADWO/L Progressing Problem: Grooming Dates: Start: 07/13/24 [...] Date/Time User Outcome 07/17/24 1439 Yoanna Han-Mahoney, CAR VARNISHER/L Progressing Problem: Toilet Transfers Dates: Start: 07/13/24 [...] 07/17/24 1439 Yoanna Guille-Mahoney, KWADWO/L Progressing Problem: Transfers Dates: Start: 07/13/24 Disciplines: OT Goal: Patient will perform transfers Independently Dates: Start: 07/13/24 Expected End: 08/13/24 Description: Goal Description: Disciplines: OT Outcomes Date/Time User Outcome 07/17/24 1439 Yoanna Guille-Mahoney, KWADWO/L Progressing Occupational Therapy Care Plan (Resolved) There are no resolved problems. Principal Problem: Dementia with behavioral disturbance ([facility]) Active Problems: Altered mental status Status post colostomy, follow-up exam ([facility]) Cosigned by RAMONITA Navarro at 07/17/2024 3:03 PM EST Associated attestation - Lucie Olivarez OTR/Jerome - 07/17/2024 3:03 PM EST I have reviewed and agree with this note and education documentation for this visit. Work[facility] 07-17-2024 Telephone encounter Note Pt fell and is in [facility] and is requesting help with getting pt transferred to a [facility] facility Please call pts [phone] [facility] 07-17-2024 Plan of care note [...] at the bedside 7. Instruct patient/ patient high school admissions representative about use of safety devices 8. Include patient/ patient high school admissions representative in decisions related to safety Outcome: Progressing Note: Evaluation of progress towards goal: Patient is injury free at this time. Problem: Knowledge Deficit Goal: Patient/patient high school admissions representative demonstrates understanding of disease process, treatment [...] Score of =/> 25 or indicated by [facility] Assessment Goal: Patient should be free from fall Description: Interventions: 1. [place] to environment 2. Hourly rounds addressing the [...] non-skid footwear 11. Teach patient and patient high school admissions representative to maintain environment for safety and [...] (cane, walker) within reach 19. Request patient high school admissions representative bring adaptive equipment/mobility aids from home or obtain and provide as needed 20. Consult pharmacy regarding effects of med's affecting mobility, cognition, and alternatives 21. Obtain physician order for PT if risk factors associated with mobility are present 22. Obtain physician order for OT as appropriate 23. Utilize diversional activities 24. Educate patient and patient high school admissions representative how to maintain a safe environment during visitation times (notify nurse prior to leaving bedside) 25. Consider appropriateness of medical or non-medical planner 26. Set up voiding schedule as appropriate (every 2 hours) Outcome: Progressing Note: Evaluation of progress towards goal: Patient is free from falls at this time. [employer] 07-17-2024 Progress note Formatting of t his note might be different from the original. DISCHARGE PLANNING NOTE fax referral to [facility] to [phone] shannna Shah [employer] 07-17-2024 Progress note Formatting of t his note is different from the original. Images from the original note were not included. DISCHARGE PLANNING NOTE Discussed patient today during rounds. Plan- IPR/TBI center. Barriers- acceptance, auth. This writer producer called both reviewing facilities and left for admissions to see if they can accept. Asked them to call this writer producer back. Floor nurse and leadership team aware. Services Requested: Services Requested Patient expects to be discharged to:: home vs snf Patient Goals: Goals: Goals (pt-stated) Evaluation of progress towards goal: TBD-pending PT/OT eval - NANCY PARRISH 07/17/24 9:42 AM At this time we do not have an accepting TBI/IPR facility. This writer producer and wood strip block floor installer attempted to speak with patient's but she is not in the room. Also tried to call her but it went right to and her VM box is full. - NANCY PARRISH 07/17/24 1:43 PM [facility] called this writer producer since they don't respond in careport and they can not accept patient. This writer producer and wood strip block floor installer spoke with patient's and patient's sister [...] nurse. - NANCY PARRISH 07/17/24 2:45 PM [facility] 07-17-2024 Plan of care note Problem: [...] at the bedside 7. Instruct patient/ patient high school admissions representative about use of safety devices 8. Include patient/ patient high school admissions representative in decisions related to safety Outcome: Progressing Note: Evaluation of progress towards goal: Patient remains injury and fall free. Safety precautions in place: call light within reach, bed in lowest position, personal belongings within reach, oriented to environment, and non-slip footwear on. Problem: Knowledge Deficit Goal: Patient/patient high school admissions representative demonstrates understanding of disease process, treatment [...] towards goal: Patient to discharge to [facility], awaiting an accepting facility. Problem: Neurological [...] Score of =/> 25 or indicated by [facility] Assessment Goal: Patient should be free from fall Description: Interventions: 1. [place] to environment 2. Hourly rounds addressing the [...] non-skid footwear 11. Teach patient and patient high school admissions representative to maintain environment for safety and [...] (cane, walker) within reach 19. Request patient high school admissions representative bring adaptive equipment/mobility aids from home or obtain and provide as needed 20. Consult pharmacy regarding effects of med's affecting mobility, cognition, and alternatives 21. Obtain physician order for PT if risk factors associated with mobility are present 22. Obtain physician order for OT as appropriate 23. Utilize diversional activities 24. Educate patient and patient high school admissions representative how to maintain a safe environment during visitation times (notify nurse prior to leaving bedside) 25. Consider appropriateness of medical or non-medical planner 26. Set up voiding schedule as appropriate (every 2 hours) Outcome: Progressing Note: Evaluation of progress towards goal: Patient remains injury and fall free. Safety precautions in place: call light within reach, bed in lowest position, personal belongings within reach, oriented to environment, and non-slip footwear on. [facility] 07-16-2024 Progress note Formatting of t his [...] Plan Speech Therapy Care Plan (Active) Template: RUST Reh Speech Problem: Auditory Comprehension Dates: Start: 07/12/24 Disciplines: CLIP LOADING MACHINE ADJUSTER Goal: LTG: Patient will comprehend communication related to basic medical and social needs and utilize compensatory strategies to maintain safety in a functional living environment Dates: Start: 07/12/24 Expected End: 08/12/24 Disciplines: CLIP LOADING MACHINE ADJUSTER Goal: STG: Patient will answer complex yes/no questions with 90% accuracy with minimal cueing Dates: Start: 07/12/24 Expected End: 08/12/24 Disciplines: CLIP LOADING MACHINE ADJUSTER Outcomes Date/Time User Outcome 07/16/24 1520 MAGALI Castellanos Progressing Goal: STG: Patient will complete 1-3 step commands with 90% accuracy with minimal cueing Dates: Start: 07/12/24 Expected End: 08/12/24 Disciplines: CLIP LOADING MACHINE ADJUSTER Outcomes Date/Time User Outcome 07/16/24 1520 MAGALI Castellanos Progressing Goal: STG: Patient will complete simple, phrase level auditory comprehension tasks with 90% accuracy with minimal cueing Dates: Start: 07/12/24 Expected End: 08/12/24 Disciplines: CLIP LOADING MACHINE ADJUSTER Problem: Cognitive Linguistic Dates: Start: 07/12/24 Disciplines: CLIP LOADING MACHINE ADJUSTER Goal: LTG: Patient will display functional cognitive-linguistic skills to demonstrate appropriate communication and safety within daily activities in a functional living environment Dates: Start: 07/12/24 Expected End: 08/12/24 Disciplines: CLIP LOADING MACHINE ADJUSTER Goal: STG: Patient will demonstrate sustained attention by maintaining focus during a task for 10 minutes with minimal assistance Dates: Start: 07/12/24 Expected End: 08/12/24 Disciplines: CLIP LOADING MACHINE ADJUSTER Outcomes Date/Time User Outcome 07/16/24 152Lauro MAGALI Castellanos Progressing Goal: STG: Patient will be appropriately oriented to person, place, time and situation with 90% accuracy with minimal cueing Dates: Start: 07/12/24 Expected End: 08/12/24 Disciplines: CLIP LOADING MACHINE ADJUSTER Goal: STG: Patient will recall information discussed during therapy session via retelling/answering questions with 90% accuracy with minimal cueing Dates: Start: 07/12/24 Expected End: 08/12/24 Disciplines: CLIP LOADING MACHINE ADJUSTER Problem: High Level Language Dates: Start: 07/12/24 Disciplines: CLIP LOADING MACHINE ADJUSTER Goal: LTG: Patient will demonstrate use of self-awareness, goal setting, planning, initiation, self-monitoring and problem solving during daily activities to improve safety and awareness in a functional living environment Dates: Start: 07/12/24 Expected End: 08/12/24 Disciplines: CLIP LOADING MACHINE ADJUSTER Goal: STG: Patient will sequence 4-6 steps to a task (verbal, written, pictures) with 90% accuracy with minimal cueing Dates: Start: 07/12/24 Expected End: 08/12/24 Disciplines: CLIP LOADING MACHINE ADJUSTER Goal: STG: Patient will provide 3 appropriate solutions to problems of daily living with 90% accuracy with minimal cueing Dates: Start: 07/12/24 Expected End: 08/12/24 Disciplines: CLIP LOADING MACHINE ADJUSTER Goal: STG: Patient will demonstrate functional problem solving and safety awareness with 90% accuracy in daily living tasks in order to increase safe interactions with environment and decrease assistance from caregivers Dates: Start: 07/12/24 Expected End: 08/12/24 Disciplines: CLIP LOADING MACHINE ADJUSTER Problem: Verbal Expression Dates: Start: 07/12/24 Disciplines: CLIP LOADING MACHINE ADJUSTER Goal: LTG: Patient will utilize compensatory strategies to communicate wants and needs effectively to different conversational partners, maintain safety and participate socially in a functional living environment Dates: Start: 07/12/24 Expected End: 08/12/24 Disciplines: CLIP LOADING MACHINE ADJUSTER Goal: STG: Patient will respond to simple/complex open ended questions during activities of daily living with 90% accuracy with minimal cueing Dates: Start: 07/12/24 Expected End: 08/12/24 Disciplines: CLIP LOADING MACHINE ADJUSTER Goal: STG: Patient will maintain topic of conversation to decrease tangential speech with 90% accuracy with minimal cueing Dates: Start: 07/12/24 Expected End: 08/12/24 Disciplines: CLIP LOADING MACHINE ADJUSTER Outcomes Date/Time User Outcome 07/16/24 1520 MAGALI Castellanos Progressing Speech Therapy Care Plan (Resolved) There are no resolved problems. Principal Problem: Dementia with behavioral disturbance ([facility]) Active Problems: Altered mental status Status post colostomy, follow-up exam ([facility]) [facility] [employer] 07-16-2024 Progress note Formatting of t his note might be different from the original. DISCHARGE PLANNING NOTE Resent referral in [facility] to [facility] P#[phone]; F#[phone] sent via secure fax to [phone] [facility] 07-16-2024 Plan of care note Problem: Safety [...] at the bedside 7. Instruct patient/ patient high school admissions representative about use of safety devices 8. Include patient/ patient high school admissions representative in decisions related to safety Outcome: Progressing Note: Evaluation of progress towards goal: pain will be adequally controlled to allow for rest and adl's Problem: Knowledge Deficit Goal: Patient/patient high school admissions representative demonstrates understanding of disease process, treatment [...] be free from fall Description: Interventions: 1. [place] to environment 2. Hourly rounds addressing the [...] non-skid footwear 11. Teach patient and patient high school admissions representative to maintain environment for safety and [...] (cane, walker) within reach 19. Request patient high school admissions representative bring adaptive equipment/mobility aids from home or obtain and provide as needed 20. Consult pharmacy regarding effects of med's affecting mobility, cognition, and alternatives 21. Obtain physician order for PT if risk factors associated with mobility are present 22. Obtain physician order for OT as appropriate 23. Utilize diversional activities 24. Educate patient and patient high school admissions representative how to maintain a safe environment during visitation times (notify nurse prior to leaving bedside) 25. Consider appropriateness of medical or non-medical planner 26. Set up voiding schedule as appropriate (every 2 hours) Outcome: Progressing Note: Evaluation of progress towards goal: fall bundle [facility] [employer] [facility] 07-16-2024 Progress note Formatting of t his note might be different from the original. DISCHARGE PLANNING NOTE Clinical updates sent to Referrals sent to [facility] (P# [phone] ; F# [phone]) and to Janice Josh [facility] and to [facility] Work[facility] 07-16-2024 Progress note Formatting of t his note might be different from the original. DISCHARGE PLANNING NOTE Referral sent to. [facility] Via secure fax to [phone]. This is theor fax per phone call to facility. P#[phone]. Provider not in Careport. [facility] 07-16-2024 Progress note Formatting of t his note might be different from the original. DISCHARGE PLANNING NOTE Discharge plan- TBD waiting to hear from [facility] who can accept out of the reviewing facilities. [facility] called this writer producer and will call his to discuss. If they are able to accept she would owe private pay for room and board and money is due up front. Updated leadership team and floor nurse. - NANCY PARRISH 07/16/24 8:50 AM Discussed patient today during rounds. Called [facility] and left a VM for admissions to see if they can accept. Awaiting responses from the other facilities to respond. Barriers- acceptance, auth. - NANCY PARRISH 07/16/24 10:58 AM Called admissions at [facility] and [facility] and left VM asking them if they can accept and to call this writer producer back. Left callback #. - NANCY PARRISH 07/16/24 11:05 AM Still awaiting responses from all reviewing IPR this time. Leadership aware. Called [facility] and spoke with admissions and they will review. Also called [facility] and left another VM. Both in [place] are still reviewing at this time. - NANCY PARRISH 07/16/24 1:39 PM Spoke with patient and to update them that at this time we are awaiting responses from 3 facilities. Leadership aware. - NANCY PARRISH 07/16/24 3:45 PM Work[facility] 07-16-2024 Plan of care note Problem: Safety [...] at the bedside 7. Instruct patient/ patient high school admissions representative about use of safety devices 8. Include patient/ patient high school admissions representative in decisions related to safety Outcome: Progressing Note: Evaluation of progress towards goal: Patient remains injury and fall free. Safety precautions in place: call light within reach, bed in lowest position, personal belongings within reach, oriented to environment, and non-slip footwear on. Problem: Knowledge Deficit Goal: Patient/patient high school admissions representative demonstrates understanding of disease process, treatment [...] Collaborate with ancillary departments 14. Include patient/patient high school admissions representative in decisions related to anxiety Outcome: Progressing Note: Evaluation of progress towards goal: Patient's anxiety appears to be at manageable level. Problem: Moderate - High Risk Fall Score Description: Gallegos Fall Score of =/> 25 or indicated by [facility] Assessment Goal: Patient should be free from fall Description: Interventions: 1. [place] to environment 2. Hourly rounds addressing the [...] non-skid footwear 11. Teach patient and patient high school admissions representative to maintain environment for safety and [...] (cane, walker) within reach 19. Request patient high school admissions representative bring adaptive equipment/mobility aids from home or obtain and provide as needed 20. Consult pharmacy regarding effects of med's affecting mobility, cognition, and alternatives 21. Obtain physician order for PT if risk factors associated with mobility are present 22. Obtain physician order for OT as appropriate 23. Utilize diversional activities 24. Educate patient and patient high school admissions representative how to maintain a safe environment during visitation times (notify nurse prior to leaving bedside) 25. Consider appropriateness of medical or non-medical planner 26. Set up voiding schedule as appropriate (every 2 hours) Outcome: Progressing Note: Evaluation of progress towards goal: Patient remains injury and fall free. Safety precautions in place: call light within reach, bed in lowest position, personal belongings within reach, oriented to environment, and non-slip footwear on. [facility] 07-15-2024 Plan of care note Problem: [...] at the bedside 7. Instruct patient/ patient high school admissions representative about use of safety devices 8. Include patient/ patient high school admissions representative in decisions related to safety Outcome: [...] Score of =/> 25 or indicated by [facility] Assessment Goal: Patient should be free from fall Description: Interventions: 1. [place] to environment 2. Hourly rounds addressing the [...] non-skid footwear 11. Teach patient and patient high school admissions representative to maintain environment for safety and [...] (cane, walker) within reach 19. Request patient high school admissions representative bring adaptive equipment/mobility aids from home or obtain and provide as needed 20. Consult pharmacy regarding effects of med's affecting mobility, cognition, and alternatives 21. Obtain physician order for PT if risk factors associated with mobility are present 22. Obtain physician order for OT as appropriate 23. Utilize diversional activities 24. Educate patient and patient high school admissions representative how to maintain a safe environment during visitation times (notify nurse prior to leaving bedside) 25. Consider appropriateness of medical or non-medical planner 26. Set up voiding schedule as appropriate (every 2 hours) Outcome: Progressing Note: Evaluation of progress towards goal: Pt is free from falls. [facility] Work4 07-15-2024 Plan of care note Problem: Safety [...] at the bedside 7. Instruct patient/ patient high school admissions representative about use of safety devices 8. Include patient/ patient high school admissions representative in decisions related to safety Outcome: Progressing Note: Evaluation of progress towards goal: Proper identifiers used with patient care and medication administration. Remains free of injury during shift Problem: Knowledge Deficit Goal: Patient/patient high school admissions representative demonstrates understanding of disease process, treatment [...] Collaborate with ancillary departments 14. Include patient/patient high school admissions representative in decisions related to anxiety Outcome: Progressing Note: Evaluation of progress towards goal: Patient verbalizes a tolerable anxiety level and remains free of signs and symptoms of anxiety. Will continue to explain treatment plan and monitor for changes in anxiety levels. Problem: Moderate - High Risk Fall Score Description: Gallegos Fall Score of =/> 25 or indicated by [facility] Assessment Goal: Patient should be free from fall Description: Interventions: 1. [place] to environment 2. Hourly rounds addressing the [...] non-skid footwear 11. Teach patient and patient high school admissions representative to maintain environment for safety and [...] (cane, walker) within reach 19. Request patient high school admissions representative bring adaptive equipment/mobility aids from home or obtain and provide as needed 20. Consult pharmacy regarding effects of med's affecting mobility, cognition, and alternatives 21. Obtain physician order for PT if risk factors associated with mobility are present 22. Obtain physician order for OT as appropriate 23. Utilize diversional activities 24. Educate patient and patient high school admissions representative how to maintain a safe environment during visitation times (notify nurse prior to leaving bedside) 25. Consider appropriateness of medical or non-medical planner 26. Set up voiding schedule as appropriate (every 2 hours) Outcome: Progressing Note: Evaluation of progress towards goal: Call light within reach. Remains free of fall or injury. Environment free of clutter. [facility] [employer] [facility] 2024 Plan of care note Problem: Safety [...] at the bedside 7. Instruct patient/ patient high school admissions representative about use of safety devices 8. Include patient/ patient high school admissions representative in decisions related to safety Outcome: Progressing Note: Evaluation of progress towards goal: pain will be controlled to allow for rest and adl's Problem: Knowledge Deficit Goal: Patient/patient high school admissions representative demonstrates understanding of disease process, treatment [...] Collaborate with ancillary departments 14. Include patient/patient high school admissions representative in decisions related to anxiety Outcome: Progressing Note: Evaluation of progress towards goal: listen and reassuring Problem: Moderate - High Risk Fall Score Description: Gallegos Fall Score of =/> 25 or indicated by [facility] Assessment Goal: Patient should be free from fall Description: Interventions: 1. [place] to environment 2. Hourly rounds addressing the [...] non-skid footwear 11. Teach patient and patient high school admissions representative to maintain environment for safety and [...] (cane, walker) within reach 19. Request patient high school admissions representative bring adaptive equipment/mobility aids from home or obtain and provide as needed 20. Consult pharmacy regarding effects of med's affecting mobility, cognition, and alternatives 21. Obtain physician order for PT if risk factors associated with mobility are present 22. Obtain physician order for OT as appropriate 23. Utilize diversional activities 24. Educate patient and patient high school admissions representative how to maintain a safe environment during visitation times (notify nurse prior to leaving bedside) 25. Consider appropriateness of medical or non-medical planner 26. Set up voiding schedule as appropriate (every 2 hours) Outcome: Progressing Note: Evaluation of progress towards goal: [employer] Work4 2024 Progress note Formatting of t his note might be different from the original. DISCHARGE PLANNING NOTE Referrals sent to [facility] (P# [phone] ; F# [phone]) and to [facility] and to [facility] and to [facility] p#: [phone] f#: [phone] [employer] [facility] 2024 Progress note Formatting of t his note might be different from the original. DISCHARGE PLANNING NOTE Follow-up Discharge Planning Progress Note Per RN during discharge transition rounds, barriers to discharge are: Accepting acute inpatient rehabilitation center. Discharge Plan: [place] Clerk followed up with patient, spouse and patient [...] Discussed lower levels of care such as Prison Facility and Home care. Patient spouse and sister verbalized understanding. Choices received. [facility] tasked to send referrals. Attempted to contact Jaciel Venegas, admission office closed on weekend. Care Navigation will continue to follow for any discharge needs. - Shweta Delgado RN 07/14/24 1:22 PM Work4 07-13-2024 Plan of care note Problem: Safety [...] at the bedside 7. Instruct patient/ patient high school admissions representative about use of safety devices 8. Include patient/ patient high school admissions representative in decisions related to safety Outcome: Progressing Note: Evaluation of progress towards goal: Proper identifiers used with patient care and medication administration. Remains free of injury during shift Problem: Knowledge Deficit Goal: Patient/patient high school admissions representative demonstrates understanding of disease process, treatment [...] Collaborate with ancillary departments 14. Include patient/patient high school admissions representative in decisions related to anxiety Outcome: Progressing Note: Evaluation of progress towards goal: Patient remains free of signs and symptoms of anxiety. Will continue to explain treatment plan and monitor for changes in anxiety levels. Problem: Moderate - High Risk Fall Score Description: Gallegos Fall Score of =/> 25 or indicated by [facility] Assessment Goal: Patient should be free from fall Description: Interventions: 1. [place] to environment 2. Hourly rounds addressing the [...] non-skid footwear 11. Teach patient and patient high school admissions representative to maintain environment for safety and [...] (cane, walker) within reach 19. Request patient high school admissions representative bring adaptive equipment/mobility aids from home or obtain and provide as needed 20. Consult pharmacy regarding effects of med's affecting mobility, cognition, and alternatives 21. Obtain physician order for PT if risk factors associated with mobility are present 22. Obtain physician order for OT as appropriate 23. Utilize diversional activities 24. Educate patient and patient high school admissions representative how to maintain a safe environment during visitation times (notify nurse prior to leaving bedside) 25. Consider appropriateness of medical or non-medical planner 26. Set up voiding schedule as appropriate (every 2 hours) Outcome: Progressing Note: Evaluation of progress towards goal: Call light within reach. Remains free of fall or injury. Environment free of clutter. Problem: Safety - Medical Restraint Goal: Remains free of injury from restraints (Restraint for Interference with Naval [employer]cre[employer]ical Helicopter) Description: INTERVENTIONS: 1. Determine that other, less [...] Free from restraint(s) (Restraint for Interference with [employer]ical Helicopter) Description: INTERVENTIONS: 1. ONCE/SHIFT or MINIMUM Q12H: [...] safety; individualizes the safety outcome Outcome: Completed [facility] 07-13-2024 Progress note Formatting of t his note might be different from the original. Per Lesia COVARRUBIAS CN patient's and sister were very upset that [facility] did not accept patient. They declined to offer any other choices for facilities to her at this time. Lesia encouraged them to allow her to make referrals to some TBI facilities at [facility] and in [place] but at this time they are angry that [facility] did not accept patient. [place] Clerk will request SW follow up with them in the morning to obtain choices to continue developing a transition of care plan. [facility] 07-13-2024 Progress note Formatting of t his note might be different from the original. DISCHARGE PLANNING NOTE Referral sent to [facility] P#[phone]; F#[phone]); [facility] P# [phone] [calling report];/[facility] (P# [calling report]; F# ) [facility] 07-13-2024 Progress note Formatting of t his note might be different from the original. DISCHARGE PLANNING NOTE Per RN during discharge transition rounds, barriers to discharge are: Telesitter, PMR re-[employer] dose adjustment. Discharge Plan: [facility] for TBI rehab. PT/OT recommended I[facility]. CN met with and sister Earlene. wants a referral sent [facility]. CN discussed discharge and making referrals to other TBI/ IPR rehabs in the state, and sister stated they are putting all their zak in [facility] being able to accept the patient. Associate Professor Of Economics will continue to follow for any discharge needs. - Lesia Caba RN 07/13/24 12:18 PM Addendum: [facility] is not in network with patients [employer] insurance. gave CN two more choices : [facility] IPR and [facility] rehab. [facility] tasked to send referrals. and sister are calling insurance to ask about a one time contract to [facility]. Ethel , [facility] rep, stopped in to talk to and sister. - Lesia Caba RN 07/13/24 2:10 PM Addendum: Patient's and sister asked CN to listen and talk to sales agent marine insurance regarding a one time approval for the IPR: [facility]. Echocardiography Technologist Xiomy with [employer] health Medicare stated attending or managing physician needs to document patient's health status and progression, information on why the patient needs to go this specific facility for rehab, include diagnosis codes and services codes. Fax: Prior Auth Request to [phone] attn: Prior Auth Request at [employer]. CN sent pic chat to Dr. Nichol [...] - Lesia Caba RN 07/13/24 3:51 PM [facility] 07-13-2024 Progress note Formatting of t his note might be different from the original. DISCHARGE PLANNING NOTE Referral to [facility] (P# ; F# ) [facility] 07-13-2024 Progress note Formatting of t his note is different from the original. Occupational Therapy Evaluation Discharge Recommendations OT Recommendations : Inpatient Rehab Inpatient Rehab Criteria: All inpatient rehab criteria expected to be met (patient would benefit from rehab to address cognition, ADL, endurance. Patient was able to drive in May and was able to complete ADL tasks. [...] secondary to concussion versus TBI with agitation. 1-21-2025: lumbar puncture. CSF. Biomarkers in past confirmed [...] 11/24/2019 Performed by Skyler Bowen MD at [facility] 3YEARS AGO COLOSTOMY CLOSURE Therapy Plan Need [...] early mobility guidelines. Equipment: gait belt, telemetry Telemetry/Wort Extractor: Yes Oxygen Used: room air Other: fall [...] chair with call light in reach and RN, Neela aware. in room with patient.) Eating Assistance: [...] and pants. Patient was able to static inventory manager front of toilet with contact guard. Patient was unable to void due to trouble with processing, safety and judgement. Home Management - IADL Other: patient has trouble executing tasks. patient was able to ambulate into bathroom with contact guard. patient required min assist to doff underware and pants. Patient was able to static inventory manager front of toilet with contact guard. Patient was unable to void due to trouble with processing, safety and judgement. Hearing / Speech / Vision Hearing: Within Functional Limits Speech: Within Functional Limits Cognition Overall Cognitive Status: Exceptions to Within Functional Limits Arousal/Alertness: Delayed responses to stimuli Orientation Level: Oriented to person (patient was not able to recognize , paitent was not able to recall date of [...] problems. Principal Problem: Dementia with behavioral disturbance ([facility]) Active Problems: Altered mental status Status post colostomy, follow-up exam ([facility]) [facility] [employer] [facility] 07-13-2024 Progress note Formatting of t [...] 6 Clicks: Basic Mobility Raw Score: 20 [facility] G Code Modifier: CJ Therapy Plan Need for skilled Physical Therapy to address deficits in functional mobility due to a status decline resulting from admission 07/06 as a transfer from [facility] for neurological work up. Patient diagnosed with early onset dementia 2022, per spouse report after jail and med changes cognitive status had improved and stabilized prior to fall in May 2024. 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 Pt discharged to inpatient treatment facility and returned to [facility] for scheduled MRI. 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 Principal Problem: Dementia with behavioral disturbance ([facility]) Active Problems: Altered mental status Status post colostomy, follow-up exam ([facility]) [facility] 07-12-2024 Plan of care note Problem: [...] at the bedside 7. Instruct patient/ patient high school admissions representative about use of safety devices 8. Include patient/ patient high school admissions representative in decisions related to safety Outcome: Progressing Note: Evaluation of progress towards goal: Patient remains injury and fall free. Safety precautions in place: call light within reach, bed in lowest position, personal belongings within reach, oriented to environment, and non-slip footwear on. Problem: Knowledge Deficit Goal: Patient/patient high school admissions representative demonstrates understanding of disease process, treatment [...] Collaborate with ancillary departments 14. Include patient/patient high school admissions representative in decisions related to anxiety Outcome: Progressing Note: Evaluation of progress towards goal: Patient's has at bedside to help with spells of anxiety. Problem: Moderate - High Risk Fall Score Description: Gallegos Fall Score of =/> 25 or indicated by [facility] Assessment Goal: Patient should be free from fall Description: Interventions: 1. [place] to environment 2. Hourly rounds addressing the [...] non-skid footwear 11. Teach patient and patient high school admissions representative to maintain environment for safety and [...] (cane, walker) within reach 19. Request patient high school admissions representative bring adaptive equipment/mobility aids from home or obtain and provide as needed 20. Consult pharmacy regarding effects of med's affecting mobility, cognition, and alternatives 21. Obtain physician order for PT if risk factors associated with mobility are present 22. Obtain physician order for OT as appropriate 23. Utilize diversional activities 24. Educate patient and patient high school admissions representative how to maintain a safe environment during visitation times (notify nurse prior to leaving bedside) 25. Consider appropriateness of medical or non-medical planner 26. Set up voiding schedule as appropriate (every 2 hours) Outcome: Progressing Note: Evaluation of progress towards goal: Patient remains injury and fall free. Safety precautions in place: call light within reach, bed in lowest position, personal belongings within reach, oriented to environment, and non-slip footwear on. Problem: Safety - Medical Restraint Goal: Remains free of injury from restraints (Restraint for Interference with [employer]cre[employer]ical Helicopter) Description: INTERVENTIONS: 1. Determine that other, less [...] Free from restraint(s) (Restraint for Interference with [employer]cre[employer] Tactical Helicopter) Description: INTERVENTIONS: 1. ONCE/SHIFT or MINIMUM Q12H: [...] nutrition and hydration, hygiene, ROM, elimination needs [facility] 07-12-2024 Progress note Formatting of t his note might be different from the original. DISCHARGE PLANNING NOTE Per RN during discharge transition rounds, barriers to discharge are: PMR consult today, 2 point restraints, telesitter Discharge Plan: TBD. PMR is requesting PT/OT notes. Will wait for therapy input. not available this afternoon. CN escalated this case to CN leadership. Associate Professor Of Economics will continue to follow for any discharge needs. - Lesia Caba RN 07/12/24 3:24 PM [facility] 07-12-2024 Plan of care note Problem: [...] at the bedside 7. Instruct patient/ patient high school admissions representative about use of safety devices 8. Include patient/ patient high school admissions representative in decisions related to safety Outcome: Progressing Note: Evaluation of progress towards goal: Patient remains injury free at present time. Safe environment provided and maintained. Medications administered using 5 rights. Problem: Knowledge Deficit Goal: Patient/patient high school admissions representative demonstrates understanding of disease process, treatment [...] Collaborate with ancillary departments 14. Include patient/patient high school admissions representative in decisions related to anxiety Outcome: Progressing Note: Evaluation of progress towards goal: Patient has family at bedside assisting with anxiety. Problem: Safety - Medical Restraint Goal: Remains free of injury from restraints (Restraint for Interference with [employer] T[employer]ical Helicopter) Description: INTERVENTIONS: 1. Determine that other, less [...] Free from restraint(s) (Restraint for Interference with [employer] Aircre[employer] Tactical Helicopter) Description: INTERVENTIONS: 1. ONCE/SHIFT or MINIMUM Q12H: [...] assess q2 restraints, qshift assessed for necessity. [facility] Work4 07-12-2024 Progress note Formatting of t his [...] continue to follow along. Prognosis Services: Skilled CLIP LOADING MACHINE ADJUSTER services to address the above deficits Prognosis/Potential: Good Considerations: Age, Ability to learn, Previous level of function Assessment Oral/Motor Overall Oral/Motor Status: Within Functional Limits Breath Support: Adequate for speech Dentition: Adequate Xerostomia: No Hearing: Within Functional Limits Auditory Comprehension Overall Auditory Comphension Status: Exceptions to Within Functional Limits Yes/No Questions: Exceptions to WF Basic Questions: Moderate Complex Questions: Moderate Commands: [...] Speech Therapy Care Plan (Active) Template: - [facility] Speech Problem: Auditory Comprehension Dates: Start: 07/12/24 Disciplines: CLIP LOADING MACHINE ADJUSTER Goal: LTG: Patient will comprehend communication related to basic medical and social needs and utilize compensatory strategies to maintain safety in a functional living environment Dates: Start: 07/12/24 Expected End: 08/12/24 Disciplines: CLIP LOADING MACHINE ADJUSTER Goal: STG: Patient will answer complex yes/no questions with 90% accuracy with minimal cueing Dates: Start: 07/12/24 Expected End: 08/12/24 Disciplines: CLIP LOADING MACHINE ADJUSTER Goal: STG: Patient will complete 1-3 step commands with 90% accuracy with minimal cueing Dates: Start: 07/12/24 Expected End: 08/12/24 Disciplines: CLIP LOADING MACHINE ADJUSTER Goal: STG: Patient will complete simple, phrase level auditory comprehension tasks with 90% accuracy with minimal cueing Dates: Start: 07/12/24 Expected End: 08/12/24 Disciplines: CLIP LOADING MACHINE ADJUSTER Problem: Cognitive Linguistic Dates: Start: 07/12/24 Disciplines: CLIP LOADING MACHINE ADJUSTER Goal: LTG: Patient will display functional cognitive-linguistic skills to demonstrate appropriate communication and safety within daily activities in a functional living environment Dates: Start: 07/12/24 Expected End: 08/12/24 Disciplines: CLIP LOADING MACHINE ADJUSTER Goal: STG: Patient will demonstrate sustained attention by maintaining focus during a task for 10 minutes with minimal assistance Dates: Start: 07/12/24 Expected End: 08/12/24 Disciplines: CLIP LOADING MACHINE ADJUSTER Goal: STG: Patient will be appropriately oriented to person, place, time and situation with 90% accuracy with minimal cueing Dates: Start: 07/12/24 Expected End: 08/12/24 Disciplines: CLIP LOADING MACHINE ADJUSTER Goal: STG: Patient will recall information discussed during therapy session via retelling/answering questions with 90% accuracy with minimal cueing Dates: Start: 07/12/24 Expected End: 08/12/24 Disciplines: CLIP LOADING MACHINE ADJUSTER Problem: High Level Language Dates: Start: 07/12/24 Disciplines: CLIP LOADING MACHINE ADJUSTER Goal: LTG: Patient will demonstrate use of self-awareness, goal setting, planning, initiation, self-monitoring and problem solving during daily activities to improve safety and awareness in a functional living environment Dates: Start: 07/12/24 Expected End: 08/12/24 Disciplines: CLIP LOADING MACHINE ADJUSTER Goal: STG: Patient will sequence 4-6 steps to a task (verbal, written, pictures) with 90% accuracy with minimal cueing Dates: Start: 07/12/24 Expected End: 08/12/24 Disciplines: CLIP LOADING MACHINE ADJUSTER Goal: STG: Patient will provide 3 appropriate solutions to problems of daily living with 90% accuracy with minimal cueing Dates: Start: 07/12/24 Expected End: 08/12/24 Disciplines: CLIP LOADING MACHINE ADJUSTER Goal: STG: Patient will demonstrate functional problem solving and safety awareness with 90% accuracy in daily living tasks in order to increase safe interactions with environment and decrease assistance from caregivers Dates: Start: 07/12/24 Expected End: 08/12/24 Disciplines: CLIP LOADING MACHINE ADJUSTER Problem: Verbal Expression Dates: Start: 07/12/24 Disciplines: CLIP LOADING MACHINE ADJUSTER Goal: LTG: Patient will utilize compensatory strategies to communicate wants and needs effectively to different conversational partners, maintain safety and participate socially in a functional living environment Dates: Start: 07/12/24 Expected End: 08/12/24 Disciplines: CLIP LOADING MACHINE ADJUSTER Goal: STG: Patient will respond to simple/complex open ended questions during activities of daily living with 90% accuracy with minimal cueing Dates: Start: 07/12/24 Expected End: 08/12/24 Disciplines: CLIP LOADING MACHINE ADJUSTER Goal: STG: Patient will maintain topic of conversation to decrease tangential speech with 90% accuracy with minimal cueing Dates: Start: 07/12/24 Expected End: 08/12/24 Disciplines: CLIP LOADING MACHINE ADJUSTER Speech Therapy Care Plan (Resolved) There are no resolved problems. Principal Problem: Dementia with behavioral disturbance ([facility]) Active Problems: Altered mental status Status post colostomy, follow-up exam ([facility]) [facility] 07-12-2024 Miscellaneous Notes Patient's sister, Earlene (not on HIPAA), called in asking to speak with Dr Price regarding patient's admission at [facility]. Patient had a tele consult with Dr Price on 07/03/24. Earlene would like to discuss some concerns that she has with Dr Price and possibly set up a hospital follow up. She is asking for a call back to further discuss [phone] CALLED AND SPOKE TO EARLENE TO LET HER KNOW THAT NOTHING CAN BE DISCUSSED WITH HER DUE TO HER NOT BEING ON PATIENTS HIPAA. EARLENE UNDERSTOOD Patient's spouse [phone] stated that they would like a call back to discuss [facility] stay. Called and spoke to patients and told her Dr Price seen Estella on a consultation on 07/03/24 and is no longer under his care. Dr Price consulted because he was information operator and that the patient is still in [...] her insurance company. documented in this encounter [facility] 07-12-2024 Telephone encounter Note Patient's sister, Earlene (not on HIPAA), called in asking to speak with Dr Price regarding patient's admission at [facility]. Patient had a tele consult with Dr Price on 07/03/24. Earlene would like to discuss some concerns that she has with Dr Price and possibly set up a hospital follow up. She is asking for a call back to further discuss [phone] [employer] 07-12-2024 Telephone encounter Note CALLED AND SPOKE TO EARLENE TO LET HER KNOW THAT NOTHING CAN BE DISCUSSED WITH HER DUE TO HER NOT BEING ON PATIENTS HIPAA. EARLENE UNDERSTOOD [employer] 07-12-2024 Telephone encounter Note Patient's spouse [phone] stated that they would like a call back to discuss [facility] stay. [employer] 07-12-2024 Telephone encounter Note Called and spoke to patients and told her Dr Price seen Estella on a consultation on 07/03/24 and is no longer under his care. Dr Price consulted because he was information operator and that the patient is still in [...] the care team and her insurance company. [employer] 07-12-2024 Consult note Associated Order (s): IP CONSULT TO PHYSICAL MEDICINE REHAB Images from the original note were not included. PHYSICAL MEDICINE AND REHABILITATION CONSULT Date of Admission: 07/06/2024 7:28 AM Referring Physician: Nichol Heath MD PCP: JAE LOPEZ MD Chief Compliant: Principal Problem: Dementia with behavioral disturbance ([facility]) Active Problems: Altered mental status Status post colostomy, follow-up exam ([facility]) Reason for Consultation: Rehabilitation Candidacy and Rehab Manager [employer] Physicians/Services Consulting Providers Provider Service Specialty Mina Franks MD Psychiatry Psychiatry Jessica Johnson MD -- Neurology Sonya Astudillo MD Z Physical Medicine and Rehabilitation Physical Medicine & Rehabilitation History Of Present Illness: Estella Jeffery is a 58 y.o. male early-onset [...] reflux disease) High cholesterol Perforated sigmoid colon ([facility]) PSH Past Surgical History: Procedure Laterality Date ARM EXPLORATION WITH REPAIR LACERATED ULNAR ARTERY Left 11/24/2019 Performed by Skyler Bowen MD at [facility] [place] 3YEARS AGO COLOSTOMY CLOSURE Allergies Allergies Allergen [...] mg/dL Cytology Collection Time: 07/10/24 9:39 AM Narrative [facility] [address] [place] [address] Cytology Consultation Patient Name:ESTELLA JEFFERY:1965 (Age: 58)Gender:MTaken:07/10/2024Report ed:07/11/2024 16:49Physician(s):Arnulfo Haley M.D. ([phone])Copy To:Quinton Harrell M.D. Rec. #:[id number]: #[id number] Final Cytologic Diagnosis Cerebrospinal fluid: No malignant cells identified. 07/11/2024 Interpretation [place] [address], License number: [id number].Electronically Signed Out By Derick Lorenz MD Additional Report(s): Flow Cytometry-Surg/BM/NG Date Reported: # Immunophenotyping antibodies tested: CD3, CD4, CD5, CD7, CD8, CD19, CD20, CD45, Amasa, and Lambda. Immunophenotyping Comment: Immunophenotyping has been used in this diagnostic evaluation. This test was developed and its performance characteristics determined by the [facility] Clinical Laboratories Department. It has not been [...] MD Clinical History Dementia with behavioral disturbance ([facility]) F03.918, acute change in personality Gross Description Received was 2ml of clear colorless fluid unfixed labeled as Jeffery, CSF . Also received is one cytospin slide from Hematology. Source of Specimen Cerebrospinal fluid Non LEGAL BILLING ANALYST ThinPrep, Cytospin Slide Fee Code(s): 1; 44845 VDRL, Spinal Fluid Collection Time: 07/10/24 9:39 [...] Assessment/Plan Principal Problem: Dementia with behavioral disturbance ([facility]) Active Problems: Altered mental status Status post colostomy, follow-up exam ([facility]) Acute mental status change patient also was [...] you for the referral. Nito Mirza MD [facility] [employer] Work Phone: 07-12-2024 Plan of care note Problem: Safety - Medical Restraint Goal: Remains free of injury from restraints (Restraint for Interference with [employer]) Description: INTERVENTIONS: 1. Determine that other, less [...] Free from restraint(s) (Restraint for Interference with [employer]) Description: INTERVENTIONS: 1. ONCE/SHIFT or MINIMUM Q12H: [...] nutrition and hydration, hygiene, ROM, elimination needs [facility] [employer] [facility] 07-12-2024 Progress note Formatting of t his note might be different from the original. BEHAVIORAL RESTRAINTS PROVIDER ONE HOUR [id number] EVALUATION NOTE Estella Jeffery was evaluated on 07/12/24-12:27 AM The [...] and others. Jackson Peterson PA-C 07/12/24 0058 [employer] Work Phone: 07-11-2024 Plan of care note [...] at the bedside 7. Instruct patient/ patient high school admissions representative about use of safety devices 8. Include patient/ patient high school admissions representative in decisions related to safety Outcome: Progressing Note: Evaluation of progress towards goal: Patient remains injury and fall free. Safety precautions in place: call light within reach, bed in lowest position, personal belongings within reach, oriented to environment, and non-slip footwear on. Problem: Knowledge Deficit Goal: Patient/patient high school admissions representative demonstrates understanding of disease process, treatment [...] Collaborate with ancillary departments 14. Include patient/patient high school admissions representative in decisions related to anxiety Outcome: Progressing Note: Evaluation of progress towards goal: Patient has at bedside aiding in assisting with anxiety. Problem: Moderate - High Risk Fall Score Description: Gallegos Fall Score of =/> 25 or indicated by [facility] Assessment Goal: Patient should be free from fall Description: Interventions: 1. [place] to environment 2. Hourly rounds addressing the [...] non-skid footwear 11. Teach patient and patient high school admissions representative to maintain environment for safety and [...] (cane, walker) within reach 19. Request patient high school admissions representative bring adaptive equipment/mobility aids from home or obtain and provide as needed 20. Consult pharmacy regarding effects of med's affecting mobility, cognition, and alternatives 21. Obtain physician order for PT if risk factors associated with mobility are present 22. Obtain physician order for OT as appropriate 23. Utilize diversional activities 24. Educate patient and patient high school admissions representative how to maintain a safe environment during visitation times (notify nurse prior to leaving bedside) 25. Consider appropriateness of medical or non-medical planner 26. Set up voiding schedule as appropriate (every 2 hours) Outcome: Progressing Note: Evaluation of progress towards goal: Patient remains injury and fall free. Safety precautions in place: call light within reach, bed in lowest position, personal belongings within reach, oriented to environment, and non-slip footwear on. [facility] 07-11-2024 Consult note Associated Order (s): IP CONSULT TO PSYCHIATRY PSYCHIATRIC EVALUATION No contraindications for seclusion No contraindications for restraint CHIEF COMPLAINT: Dementia with behavioral disturbance (CMS-HCC) Estella Jeffery is a 58 y.o. male who presents with Dementia with behavioral disturbance (CMS-HCC) .he is HISTORY OF PRESENT ILLNESS: The patient is a 58-year-old [place] male treatment at the [facility] for the patient has a substantial history of dyslipidemia, sleep apnea, type 2 diabetes mellitus, recent diagnosed history of early-onset Alzheimer's dementia, an epileptic disorder in remission, as well as a recent admission to [facility] for altered mental status. An MRI [...] 11/24/2019 Performed by Skyler Bowen MD at [facility] 3YEARS AGO COLOSTOMY CLOSURE Medications [...] diversion. Mina Franks MD 07/11/2024 1:11 PM [facility] 07-11-2024 Progress note Formatting of t his note might be different from the original. DISCHARGE PLANNING NOTE Per RN during discharge transition rounds, barriers to discharge are: re-consulting psych today, telesitter and soft restraints, MRI and LP completed yesterday, patient behaviors are worse at night, unpredictable and confused. Discharge Plan: [facility] psych stated [facility] was sent a referral and they have declined. Waiting input from psych. Associate Professor Of Economics will continue to follow for any discharge needs. - Lesia Caba RN 07/11/24 12:06 PM Late entery: KAY met with patient, Kari, and sister Earlene on Wednesday afternoon. and sister want the patient to go to a Traumatic Brain Injury rehab unit. CN began researching TBI Rehab units in the area, reported back to the and sister after finding TBI rehab units in [facility]. Sister asked for me to look in [facility]. and sister do not want any referrals send until they are able to meet with the neurologist again, sister wants to look into the TBI units in the [facility] herself before any referrals are sent. - Lesia Caba RN 07/12/24 8:11 AM [employer] 07-11-2024 Progress note Formatting of t his note might be different from the original. Referral sent to [facility] to assess for admission to that center's inpatient psychiatric unit. After a clinical review and screening was completed [facility] assessed patient as inappropriate for treatment at that facility. Will alert care team. - NANCY Martines 07/11/24 10:33 AM [employer] [facility] 07-11-2024 Progress note Formatting of t his note might be different from the original. DISCHARGE PLANNING NOTE Updates to [facility] [phone] [facility] 07-11-2024 Plan of care note Problem: [...] at the bedside 7. Instruct patient/ patient high school admissions representative about use of safety devices 8. Include patient/ patient high school admissions representative in decisions related to safety Outcome: Progressing Note: Evaluation of progress towards goal: Patient remains injury free at present time. Safe environment provided and maintained. Medications administered using 5 rights. Problem: Knowledge Deficit Goal: Patient/patient high school admissions representative demonstrates understanding of disease process, treatment [...] Collaborate with ancillary departments 14. Include patient/patient high school admissions representative in decisions related to anxiety Outcome: Progressing Note: Evaluation of progress towards goal: Patient has at bedside assisting with anxiety. Problem: Moderate - High Risk Fall Score Description: Gallegos Fall Score of =/> 25 or indicated by [facility] Assessment Goal: Patient should be free from fall Description: Interventions: 1. [place] to environment 2. Hourly rounds addressing the [...] non-skid footwear 11. Teach patient and patient high school admissions representative to maintain environment for safety and [...] (cane, walker) within reach 19. Request patient high school admissions representative bring adaptive equipment/mobility aids from home or obtain and provide as needed 20. Consult pharmacy regarding effects of med's affecting mobility, cognition, and alternatives 21. Obtain physician order for PT if risk factors associated with mobility are present 22. Obtain physician order for OT as appropriate 23. Utilize diversional activities 24. Educate patient and patient high school admissions representative how to maintain a safe environment during visitation times (notify nurse prior to leaving bedside) 25. Consider appropriateness of medical or non-medical planner 26. Set up voiding schedule as appropriate (every 2 hours) Outcome: Progressing Note: Evaluation of progress towards goal: Patient currently free from falls, up standby. [facility] 07-11-2024 Plan of care note Problem: [...] injury from restraints (Restraint for Interference with [employer] Helicopter) Description: INTERVENTIONS: 1. Determine that other, less [...] Free from restraint(s) (Restraint for Interference with [employer] Helicopter) Description: INTERVENTIONS: 1. ONCE/SHIFT or MINIMUM Q12H: [...] nutrition and hydration, hygiene, ROM, elimination needs [facility] 07-10-2024 Progress note Formatting of t his note might be different from the original. BEHAVIORAL RESTRAINTS PROVIDER ONE HOUR [id number] EVALUATION NOTE Estella Jeffery was evaluated on 07/10/2024 at 2350. [...] and others. Jackson Peterson PA-C 07/11/24 0036 [facility] 07-10-2024 Plan of care note Problem: [...] at the bedside 7. Instruct patient/ patient high school admissions representative about use of safety devices 8. Include patient/ patient high school admissions representative in decisions related to safety Outcome: [...] hygiene technique. 7. Identify and instruct patient/patient high school admissions representative in use of appropriate isolation precautions for identified infection/symptoms. 8. Provide and discuss with patient/patient high school admissions representative on educational MDRO sheet. 9. Encourage and monitor nutritional status daily and consult facilities operations technician if indicated. 10. Implement neutropenic guidelines as needed. Outcome: Progressing Note: Evaluation of progress towards goal: Patient remains free of any signs of infection. Signs and symptoms being monitor such as fevers, chills, warm/red areas. Problem: Knowledge Deficit Goal: Patient/patient high school admissions representative demonstrates understanding of disease process, treatment [...] Collaborate with ancillary departments 14. Include patient/patient high school admissions representative in decisions related to anxiety Outcome: Progressing Note: Evaluation of progress towards goal: Patient's anxiety is at manageable level. Problem: Safety - Medical Restraint Goal: Remains free of injury from restraints (Restraint for Interference with [employer]opter) Description: INTERVENTIONS: 1. Determine that other, less [...] Free from restraint(s) (Restraint for Interference with [employer]ical Helicopter) Description: INTERVENTIONS: 1. ONCE/SHIFT or MINIMUM Q12H: [...] on patient's door 9. Provide patient/ patient high school admissions representative with isolation education. Outcome: Progressing Note: [...] be free from fall Description: Interventions: 1. [place] to environment 2. Hourly rounds addressing the [...] non-skid footwear 11. Teach patient and patient high school admissions representative to maintain environment for safety and [...] (cane, walker) within reach 19. Request patient high school admissions representative bring adaptive equipment/mobility aids from home or obtain and provide as needed 20. Consult pharmacy regarding effects of med's affecting mobility, cognition, and alternatives 21. Obtain physician order for PT if risk factors associated with mobility are present 22. Obtain physician order for OT as appropriate 23. Utilize diversional activities 24. Educate patient and patient high school admissions representative how to maintain a safe environment during visitation times (notify nurse prior to leaving bedside) 25. Consider appropriateness of medical or non-medical planner 26. Set up voiding schedule as appropriate (every 2 hours) Outcome: Progressing Note: Evaluation of progress towards goal: Patient remains injury and fall free. Safety precautions in place: call light within reach, bed in lowest position, personal belongings within reach, oriented to environment, and non-slip footwear on. [facility] 07-10-2024 Plan of care note Problem: [...] at the bedside 7. Instruct patient/ patient high school admissions representative about use of safety devices 8. Include patient/ patient high school admissions representative in decisions related to safety Outcome: [...] hygiene technique. 7. Identify and instruct patient/patient high school admissions representative in use of appropriate isolation precautions for identified infection/symptoms. 8. Provide and discuss with patient/patient high school admissions representative on educational MDRO sheet. 9. Encourage and monitor nutritional status daily and consult facilities operations technician if indicated. 10. Implement neutropenic guidelines as needed. Outcome: Progressing Note: Evaluation of progress towards goal: patient remains afebrile at this time Problem: Knowledge Deficit Goal: Patient/patient high school admissions representative demonstrates understanding of disease process, treatment [...] Collaborate with ancillary departments 14. Include patient/patient high school admissions representative in decisions related to anxiety Outcome: Progressing Note: Evaluation of progress towards goal: discussed w/ patient coping strategies & dietary changes that may aid in controlling stress & anxiety. Problem: Safety - Medical Restraint Goal: Remains free of injury from restraints (Restraint for Interference with [employer] Hel[employer]opter) Description: INTERVENTIONS: 1. Determine that other, less [...] Free from restraint(s) (Restraint for Interference with [employer]ical Helicopter) Description: INTERVENTIONS: 1. ONCE/SHIFT or MINIMUM Q12H: [...] on patient's door 9. Provide patient/ patient high school admissions representative with isolation education. Outcome: Progressing Note: Evaluation of progress towards goal: patient remains afebrile at this time Problem: Moderate - High Risk Fall Score Description: Gallegos Fall Score of =/> 25 or indicated by [facility] Assessment Goal: Patient should be free from fall Description: Interventions: 1. [place] to environment 2. Hourly rounds addressing the [...] non-skid footwear 11. Teach patient and patient high school admissions representative to maintain environment for safety and [...] (cane, walker) within reach 19. Request patient high school admissions representative bring adaptive equipment/mobility aids from home or obtain and provide as needed 20. Consult pharmacy regarding effects of med's affecting mobility, cognition, and alternatives 21. Obtain physician order for PT if risk factors associated with mobility are present 22. Obtain physician order for OT as appropriate 23. Utilize diversional activities 24. Educate patient and patient high school admissions representative how to maintain a safe environment during visitation times (notify nurse prior to leaving bedside) 25. Consider appropriateness of medical or non-medical planner 26. Set up voiding schedule as appropriate (every 2 hours) Outcome: Progressing Note: Evaluation of progress towards goal: patient remains free of injury & verbalizes understanding of fall prevention; call light in reach [facility] [employer] 07-10-2024 Progress note Formatting of t his note might be different from the original. DISCHARGE PLANNING NOTE Per RN during discharge transition rounds, barriers to discharge are: MRI with sedation today, LP with sedation today, restraints removed after procedures today, assess as needed for restraints, re-consult psych. Discharge Plan: [facility] discussed case with colin Solorio Associate Professor Of Economics will continue to follow for any discharge needs. - Lesia Caba RN 07/10/24 3:16 PM [facility] [employer] 07-10-2024 Plan of care note 07/10/24 1145: Evaluated patient after his procedures, he is calm at this time and currently not threat to himself or staff therefore we will discontinue violent restraints. He is though pulling at his lines and IV so will place bilateral soft wrist restraints. We will re-evaluate as needed [facility]ol [facility] MD [facility] 07-10-2024 Nurse Note Patient still off unit at this time 11:58 s/p sedated MRI & LP procedure. Per neurologist, Dr Johnson, patient needs to remain flat 1-2hrs & may have regular diet. [place] Clerk awaiting patient return to unit & per report 1:1 sitter remains at patient bedside. [employer] 07-10-2024 Procedure note Associated Ord er(s): Lumbar [...] to verify the correct patient, procedure, equipment, ict support and test engineers and site/side marked as required. Anesthesia: local infiltration Anesthesia: Local Anesthetic: lidocaine 1% without epinephrine Sedation: Patient sedated: yes Lumbar space: L3-L4 interspace Patient's position: left lateral decubitus Opening pressure: 12 cm H2O Fluid appearance: clear Tubes of fluid: 4 Total volume: 17.5 ml Post-procedure: pressure dressing applied and adhesive bandage applied Procedure was completed Complications: none Arnulfo Haley MD PGY2 Neurology [facility] Cosigned by Zach Nails MD at 07/11/2024 12:41 AM EST Associated attestation - Jaqui, Sumayya, MD - 07/11/2024 12:41 AM EST Zach Nails MD Case Repairer Dept of Neurology [facility] 07-10-2024 Procedure note Associated Ord er(s): [...] to verify the correct patient, procedure, equipment, ict support and test engineers and site/side marked as required. Anesthesia: local infiltration Anesthesia: Local Anesthetic: lidocaine 1% without epinephrine Sedation: Patient sedated: yes Lumbar space: L3-L4 interspace Patient's position: left lateral decubitus Opening pressure: 12 cm H2O Fluid appearance: clear Tubes of fluid: 4 Total volume: 17.5 ml Post-procedure: pressure dressing applied and adhesive bandage applied Procedure was completed Complications: none Arnulfo Haley MD PGY2 Neurology [facility] Cosigned by Zach Nails MD at 07/11/2024 12:41 AM EST Associated Zach Mayes MD - 07/11/2024 12:41 AM EST Zach Nails MD Case Repairer Dept of Neurology [facility] [place] documented in this encounter [facility] 07-10-2024 Nurse Note SPECIMENS X4 WERE COLLECTED, PROCESSED, AND SENT TO LAB BY DR. ARNULFO HALEY. [facility] 07-10-2024 Plan of care note Problem: [...] at the bedside 7. Instruct patient/ patient high school admissions representative about use of safety devices 8. Include patient/ patient high school admissions representative in decisions related to safety Outcome: [...] hygiene technique. 7. Identify and instruct patient/patient high school admissions representative in use of appropriate isolation precautions for identified infection/symptoms. 8. Provide and discuss with patient/patient high school admissions representative on educational MDRO sheet. 9. Encourage and monitor nutritional status daily and consult facilities operations technician if indicated. 10. Implement neutropenic guidelines as needed. Outcome: Progressing Note: Evaluation of progress towards goal: Skin integrity remains in stable condition; remains w/o ss of infection, fever, pain, or increased discomfort. Problem: Knowledge Deficit Goal: Patient/patient high school admissions representative demonstrates understanding of disease process, treatment [...] of 0 - 24 or indicated by [facility] Assessment Goal: Patient should be free from fall Description: Interventions: 1. [place] to environment 2. Hourly rounds addressing the [...] non-skid footwear 11. Teach patient and patient high school admissions representative to maintain environment for safety and [...] Collaborate with ancillary departments 14. Include patient/patient high school admissions representative in decisions related to anxiety Outcome: [...] on patient's door 9. Provide patient/ patient high school admissions representative with isolation education. Outcome: Progressing Note: Evaluation of progress towards goal: Skin integrity remains in stable condition; remains w/o ss of infection, fever, pain, or increased discomfort. Problem: Moderate - High Risk Fall Score Description: Gallegos Fall Score of =/> 25 or indicated by [facility] Assessment Goal: Patient should be free from fall Description: Interventions: 1. [place] to environment 2. Hourly rounds addressing the [...] non-skid footwear 11. Teach patient and patient high school admissions representative to maintain environment for safety and [...] (cane, walker) within reach 19. Request patient high school admissions representative bring adaptive equipment/mobility aids from home or obtain and provide as needed 20. Consult pharmacy regarding effects of med's affecting mobility, cognition, and alternatives 21. Obtain physician order for PT if risk factors associated with mobility are present 22. Obtain physician order for OT as appropriate 23. Utilize diversional activities 24. Educate patient and patient high school admissions representative how to maintain a safe environment during visitation times (notify nurse prior to leaving bedside) 25. Consider appropriateness of medical or non-medical planner 26. Set up voiding schedule as appropriate (every 2 hours) Outcome: Progressing Note: Evaluation of progress towards goal: Call light within reach. Remains free of fall or injury. Environment free of clutter. [facility] [employer] [facility] 07-09-2024 Progress note Formatting of t his note might be different from the original. BEHAVIORAL RESTRAINTS PROVIDER ONE HOUR [id number] EVALUATION NOTE Estella Jeffery was evaluated on 07/09/2024 at 1950. [...] to self and others. Jackson Peterson PA-C 07/10/2454 NIGHT 07/10/2024-0350 On assessment patient is asleep [...] 07/10/24 0522 Jackson Peterson PA-C 07/10/24 0523 [employer] 07-09-2024 Plan of care note Problem: Safety [...] at the bedside 7. Instruct patient/ patient high school admissions representative about use of safety devices 8. Include patient/ patient high school admissions representative in decisions related to safety Outcome: [...] hygiene technique. 7. Identify and instruct patient/patient high school admissions representative in use of appropriate isolation precautions for identified infection/symptoms. 8. Provide and discuss with patient/patient high school admissions representative on educational MDRO sheet. 9. Encourage and monitor nutritional status daily and consult facilities operations technician if indicated. 10. Implement neutropenic guidelines as needed. Outcome: Progressing Note: Evaluation of progress towards goal: patient remains afebrile at this time Problem: Knowledge Deficit Goal: Patient/patient high school admissions representative demonstrates understanding of disease process, treatment [...] of 0 - 24 or indicated by [facility] Assessment Goal: Patient should be free from fall Description: Interventions: 1. [place] to environment 2. Hourly rounds addressing the [...] non-skid footwear 11. Teach patient and patient high school admissions representative to maintain environment for safety and [...] Collaborate with ancillary departments 14. Include patient/patient high school admissions representative in decisions related to anxiety Outcome: [...] injury from restraints (Restraint for Interference with [employer]icopter) Description: INTERVENTIONS: 1. Determine that other, less [...] Free from restraint(s) (Restraint for Interference with [employer]ical Helicopter) Description: INTERVENTIONS: 1. ONCE/SHIFT or MINIMUM Q12H: [...] on patient's door 9. Provide patient/ patient high school admissions representative with isolation education. Outcome: Progressing Note: Evaluation of progress towards goal: patient remains afebrile at this time [facility] 07-09-2024 Progress note Formatting of t his note might be different from the original. DISCHARGE PLANNING NOTE [facility] (P# [phone] ; F# [phone]) via [employer] [facility] 07-09-2024 Progress note Formatting of t [...] . Thank you, Ethel Bueno RN, CDI [email or web address] The patient's Clinical Indicators include: As above CDI RESPONSE TEXT: Patient has progression of dementia causing agitation, no evidence of metabolic or toxic encephalopathy. Query created by: Ethel Bueno on 07/09/2024 5:42 AM Electronically signed by: Lonnie Baker MD 07/09/2024 3:22 PM [facility] 07-09-2024 Progress note Formatting of t his note might be different from the original. DISCHARGE PLANNING NOTE Referral sent to [address] (P# [phone] ; F# [phone]) via [employer] [facility] 07-09-2024 Progress note Formatting of t [...] patient to return home. Psych SW following. Associate Professor Of Economics will continue to follow for any discharge needs. - Lesia Caba RN 07/09/24 1:11 PM [facility] 07-08-2024 Plan of care note Problem: [...] at the bedside 7. Instruct patient/ patient high school admissions representative about use of safety devices 8. Include patient/ patient high school admissions representative in decisions related to safety Outcome: [...] hygiene technique. 7. Identify and instruct patient/patient high school admissions representative in use of appropriate isolation precautions for identified infection/symptoms. 8. Provide and discuss with patient/patient high school admissions representative on educational MDRO sheet. 9. Encourage and monitor nutritional status daily and consult facilities operations technician if indicated. 10. Implement neutropenic guidelines as needed. Outcome: Progressing Note: Evaluation of progress towards goal: monitor s/s of infection Problem: Knowledge Deficit Goal: Patient/patient high school admissions representative demonstrates understanding of disease process, treatment [...] be free from fall Description: Interventions: 1. [place] to environment 2. Hourly rounds addressing the [...] non-skid footwear 11. Teach patient and patient high school admissions representative to maintain environment for safety and [...] Collaborate with ancillary departments 14. Include patient/patient high school admissions representative in decisions related to anxiety Outcome: [...] injury from restraints (Restraint for Interference with [employer]opter) Description: INTERVENTIONS: 1. Determine that other, less [...] Free from restraint(s) (Restraint for Interference with [employer] Helicopter) Description: INTERVENTIONS: 1. ONCE/SHIFT or MINIMUM Q12H: [...] goal: fall precautions in place, hourly rounding [facility] 07-08-2024 Progress note Formatting of t his note might be different from the original. BEHAVIORAL RESTRAINTS PROVIDER ONE HOUR [id number] EVALUATION NOTE Estella Jeffery was evaluated on 07/08/2024 at 1906. [...] to self and others. Jackson Peterson PA-C 07/08/242014/25-2300 On reassessment patient is resting in bed [...] and others. Jackson Peterson PA-C 07/09/24 0344 [facility] 07-08-2024 Progress note Formatting of t his note might be different from the original. [facility] BEHAVIORAL RESTRAINTS PROVIDER ONE HOUR [id number] EVALUATION NOTE Estella Jeffery was evaluated on 07/08/2023 at 0441. [...] and others. Jackson Peterson PA-C 07/08/24 0446 [facility] 07-08-2024 Plan of care note Problem: [...] at the bedside 7. Instruct patient/ patient high school admissions representative about use of safety devices 8. Include patient/ patient high school admissions representative in decisions related to safety Outcome: [...] hygiene technique. 7. Identify and instruct patient/patient high school admissions representative in use of appropriate isolation precautions for identified infection/symptoms. 8. Provide and discuss with patient/patient high school admissions representative on educational MDRO sheet. 9. Encourage and monitor nutritional status daily and consult facilities operations technician if indicated. 10. Implement neutropenic guidelines as needed. Outcome: Progressing Note: Evaluation of progress towards goal: Patient has no infection at this time. Problem: Knowledge Deficit Goal: Patient/patient high school admissions representative demonstrates understanding of disease process, treatment [...] of 0 - 24 or indicated by [facility] Assessment Goal: Patient should be free from fall Description: Interventions: 1. [place] to environment 2. Hourly rounds addressing the [...] non-skid footwear 11. Teach patient and patient high school admissions representative to maintain environment for safety and [...] Collaborate with ancillary departments 14. Include patient/patient high school admissions representative in decisions related to anxiety Outcome: Progressing Note: Evaluation of progress towards goal: Patient is able to manage anxiety level at this time, plan of care still ongoing. [facility] 07-07-2024 Plan of care note Problem: Safety [...] at the bedside 7. Instruct patient/ patient high school admissions representative about use of safety devices 8. Include patient/ patient high school admissions representative in decisions related to safety Outcome: [...] hygiene technique. 7. Identify and instruct patient/patient high school admissions representative in use of appropriate isolation precautions for identified infection/symptoms. 8. Provide and discuss with patient/patient high school admissions representative on educational MDRO sheet. 9. Encourage and monitor nutritional status daily and consult facilities operations technician if indicated. 10. Implement neutropenic guidelines as needed. Outcome: Progressing Note: Evaluation of progress towards goal: monitor s/s of infection, monitor labs, standard precautions Problem: Knowledge Deficit Goal: Patient/patient high school admissions representative demonstrates understanding of disease process, treatment [...] of 0 - 24 or indicated by [facility] Assessment Goal: Patient should be free from fall Description: Interventions: 1. [place] to environment 2. Hourly rounds addressing the [...] non-skid footwear 11. Teach patient and patient high school admissions representative to maintain environment for safety and engage in all aspects of fall prevention program Outcome: Progressing Note: Evaluation of progress towards goal: fall precautions in place, hourly rounding, call light within reach [employer] 07-07-2024 Progress note Formatting of t his [...] age 1-5 unclear semiology Electronically signed by: Elana Valerio MD 07/07/2024 7:10 AM [facility] 07-06-2024 Plan of care note Problem: [...] at the bedside 7. Instruct patient/ patient high school admissions representative about use of safety devices 8. Include patient/ patient high school admissions representative in decisions related to safety Outcome: [...] hygiene technique. 7. Identify and instruct patient/patient high school admissions representative in use of appropriate isolation precautions for identified infection/symptoms. 8. Provide and discuss with patient/patient high school admissions representative on educational MDRO sheet. 9. Encourage and monitor nutritional status daily and consult facilities operations technician if indicated. 10. Implement neutropenic guidelines as needed. Outcome: Progressing Note: Evaluation of progress towards goal: Patient remains free of any signs of infection. Signs and symptoms being monitor such as fevers, chills, warm/red areas. Problem: Knowledge Deficit Goal: Patient/patient high school admissions representative demonstrates understanding of disease process, treatment [...] of 0 - 24 or indicated by [facility] Assessment Goal: Patient should be free from fall Description: Interventions: 1. [place] to environment 2. Hourly rounds addressing the [...] non-skid footwear 11. Teach patient and patient high school admissions representative to maintain environment for safety and [...] Description: INTERVENTIONS: 1. Encourage patient or legal high school admissions representative to report early pain and ask [...] per policy 9. Teach patient or legal high school admissions representative interventions for comforting Outcome: Completed Note: Evaluation of progress towards goal: Patient has no complaints of pain. Reassessed per policy. [employer] 07-06-2024 Progress note Formatting of t his note might be different from the original. An attempt was made to interview the patient today in the presence of his . The patient refused and asked the writer producer to leave stating that he does not want a psychiatric evaluation. Psychiatry will sign off. [employer] Work Phone: 07-06-2024 Progress note Formatting of t his note is different from the original. Images from the original note were not included. DISCHARGE PLANNING NOTE [place] Clerk met with patient, introduced self, and explained [...] medication assistance resources. PCP: JAE LOPEZ MD Pharmacy:[facility] PCP and pharmacy confirmed with patient. [...] - Jac Austin RN 07/06/24 4:01 PM [employer] 07-06-2024 Progress note Formatting of t his note might be different from the original. Called spouse and left message. Will await call back. - NANCY Martines 07/06/24 3:25 PM [employer] 07-06-2024 Progress note Formatting of t his [...] spouse. - NANCY Martines 07/06/24 11:02 AM [employer] 07-06-2024 Consult note Associated Order (s): IP CONSULT TO NEUROLOGY Images from the original note were not included. [facility] Neurology General Neurology Consult Note Primary Neurology service: [phone] Chief Complaint: HPI: Estella Jeffery is a 58 y.o. 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 He follows up with [facility] and had underwent a heavy [...] decline, Patient had presented to ED in [place] June 18 after waking up not oriented and delusional. Then June 25 he woke up again not knowing where he is delusional thinking his sister was an intruder so he was brought to [facility] and discharged later that evening. He was seen by social services technician referred to a mental health center and per family his mental status had worsened and they felt he was being overmedicated with Benadryl. 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 The impression there was no infectious or metabolic etiology so patient was transferred to [facility] for higher level of care. On my evaluation patient was restless fidgeting and did not allow me to speak him or enter the room, he would tell me his family members names what refused to tell me his name asked me to leave the room. I could not do any assessment Dickerson test or neurological exam. Per family patient [...] markers confirmed early onset Alzheimer's established in [facility] October 2022 in addition to hyperlipidemia, GERD, dm 2. Patient was transferred found [facility] for higher level of care and workup of sharp decline in cognition since May 2024. Patient had presented multiple times to the ED and admitted [facility] for delusional thinking/hallucinations/agitatio n. On evaluation [...] recommend avoiding. Resume home medications once reconciled. Elana Valerio MD PGY-1 Neurology [facility] 07/06/24 9:[address] Sofia This patient is being followed by the Neurology Resident service. Contact attending directly during these hours: Tuesday to 7:30-8:30 A.M. to Tuesday 12-1:00 p.m. Primary Neurology service: [phone] Consult neurology service: [phone] Resident Stroke Service: [phone] If the patient belongs to the Stroke [facility] service please contact the Stroke [facility]SH[facility] directly. Cosigned by Kelley Sofia MD at 07/06/2024 11:32 PM EST Associated attestation - Kelley Sofia MD - 07/06/2024 11:32 PM EST Kelley Sofia MD Neurology [facility] 07-06-2024 History and physical note Images from the original note were not included. [facility] Physicians Hospitalists History and Physical 07/06/2024 Patient Name: Estella Jeffery : 1965 Assessment Rapid onset Dementia [...] Complaint No chief complaint on file. HPI Estella Jeffery is a 58 y.o. male past medical history of early-onset dementia, GERD, perforated colon who presents to [facility] as a transfer from [place] for neurologic evaluation. History obtained from sister [...] 11/24/2019 Performed by Skyler Bowen MD at [facility] 3YEARS AGO COLOSTOMY CLOSURE Allergy: Diphenhydramine Prior [...] in full via EMR. Nichol Heath MD [facility] 07-06-2024 History and physical note Images from the original note were not included. [facility] Hospitalists History and Physical 07/06/2024 Patient Name: Estella Jeffery : 1965 Assessment Rapid onset Dementia [...] Complaint No chief complaint on file. HPI Estella Jeffery is a 58 y.o. male past medical history of early-onset dementia, GERD, perforated colon who presents to [facility] as a transfer from [place] for neurologic evaluation. History obtained from sister [...] 11/24/2019 Performed by Skyler Bowen MD at [facility] 3YEARS AGO COLOSTOMY CLOSURE Allergy: Diphenhydramine Prior to Admission medications Medication Sig Start Date End Date Taking? Authorizing Provider aspirin 81 mg Take 1 tablet (81 mg total) by mouth daily. Patient not taking: Reported on 05/06/2020 11/26/19 Kathia Gabriel, PLUMBING HARDWARE ASSEMBLER-WAITER/WAITRESS TAVERN FREESTYLE 28 gauge lancets 09/07/18 Not In [...] Nichol Heath MD documented in this encounter [facility] 06-26-2024 Note Progress Note-Nurse Attempted to call office due to family requesting additional lab work (PSA level). There was no answer at the office and no option to leave voicemail. Intrusted family to call later on today to talk to Dr. Graham's manager army about obtained PSA level [facility] 03-09-2024 Telephone encounter Note I have refilled your prescription. A review of your chart shows that you have not had a follow up visit in more than 1 year. Refills for medications require at least 1 follow up visit per year. Please call: to schedule an appointment. Lisandra Gomez APRN.CNP [facility] 03-09-2024 Miscellaneous Notes I have refilled your prescription. A review of your chart shows that you have not had a follow up visit in more than 1 year. Refills for medications require at least 1 follow up visit per year. Please call: to schedule an appointment. Lisandra Gomez APRN.EFRAIN documented in this encounter [facility] 01-11-2024 Hospital Discharge instructions Patient Education [...] treatment? Where to find more information [employer] [place] [employer]: www.cancer.org [place]: www.auanet.org Contact a health care [...] provider. Document Revised: 11/30/2021 Document Reviewed: 11/30/2021 [employer] Patient Education 2022 [employer]. Follow Up Care 12/23/2023 09:42:08 With:Santos PEÑA, ARMANI Smith, URO Address: When: Unknown Comments:Pending MRI, may proceed with fusion bx [facility] Janice 01-11-2024 Note Urology Office/Clini c [...] repair with mesh. -Will schedule MRI @ [facility] STAT. -Will schedule MRI fusion transperineal prostate [...] pro (more content not included)... [facility] Comment on above: Result Comment: Elec [...] Where to find more information ? [employer] [place] [employer]: www.cancer.org ? [employer]: www.auanet.org Contact a health care [...] rectum. (more content not included)... [facility] 12-06-2023 Telephone encounter Note The following approved medication requests have been transmitted electronically. Requested Prescriptions Signed Prescriptions Disp Refills donepezil (ARICEPT) 5 mg tablet 90 tablet 0 Sig: Take 1 tablet by mouth once daily. Authorizing Provider: AGUSTINA PLASCENCIA Ordering User: TANISHA JEFFERS APRN.WAITER/WAITRESS TAVERN [facility] 12-06-2023 Miscellaneous Notes The following approved medication requests have been transmitted electronically. Requested Prescriptions Signed Prescriptions Disp Refills donepezil (ARICEPT) 5 mg tablet 90 tablet 0 Sig: Take 1 tablet by mouth once daily. Authorizing Provider: AGUSTINA PLASCENCIA Ordering User: TANISHA JEFFERS APRN.CNP documented in this encounter [facility] 03-07-2023 Miscellaneous Notes Summary: [facility] Baseline Interest A voicemail was left about participation in [facility] research study. documented in this encounter [facility] 02-09-2023 Miscellaneous Notes Oddcast message sent documented in this encounter [facility] 02-08-2023 Miscellaneous Notes Summary: [facility] Potential Participant A call was made to of patient to talk about interest in participating in [facility]. expressed interest in participating. The [facility] consent document was sent through email. A call will be made in a week to discuss enrollment. documented in this encounter [facility] 02-04-2023 Miscellaneous Notes Images from the original note were not included. documented in this encounter [facility] 02-02-2023 Miscellaneous Notes The following approved medication requests have been transmitted electronically. Requested Prescriptions Signed Prescriptions Disp Refills donepezil (ARICEPT) 5 mg tablet 90 tablet 1 Sig: TAKE 1 TABLET BY MOUTH EVERY DAY Authorizing Provider: AGUSTINA PLASCENCIA Ordering User: KIMO PATE APRN.WAITER/WAITRESS TAVERN documented in this encounter [facility] 01-13-2023 Miscellaneous Notes Patient returned call, requested a call back. I left a message explaining the 4% requirement from Medicare, and advised to contact Medicare if they have insurance questions. Advised to call me back if they had other concerns or questions. Sonal Weinstein APRN.EFRAIN documented in this encounter [facility] 12-03-2022 Miscellaneous Notes Faxed order, office notes, demographics, and sleep study to: DME name: [facility] fax: [phone] [facility] ph: documented in this encounter [facility] 12-02-2022 History of Present illness Narrative Images from the original note were not included. [facility] Follow up/ Established [...] will have a prescription sent to a [employer] company - [employer] who will be calling you in the next 1-2 weeks or so. Please call them directly or us if you do not hear from them in this time frame. - You should be eligible for new supplies approximately every 3-6 months, depending on your insurance coverage. - If your mask doesn't fit well, call the [employer] company before 30 days are up to get a new mask without an additional charge. - Insurance requires regular usage and periodic office follow ups for PAP therapy, to continue to cover supplies. - Follow up in 2 months in the office. Recommend scheduling this appointment now to ensure the best time for you. Roosevelt Merlos PGY-4 Sleep fellow [facility] I have supervised and discussed the patient case with the Sleep Medicine Fellow including interviewing the patient in person and have updated the electronic medical record where necessary. I agree with the history, physical, impression and recommendations as documented. Gera Cardona DO, CBSM, ABSM Clinical Staff Sleep Medicine [facility] [place] [facility] [address] [place] [address] [employer] Mail Code [id number] [place] [address] I have communicated my name and active licensure. The patient's identity and physical location were verified at the time of this visit. Either the patient or their legal high school admissions representative has been informed of the risks and benefits of -- and alternatives to -- treatment through a remote evaluation and consents to proceed with the evaluation remotely. Interval history : Here for follow up for SHELBY follow up after starting PAP therapy. ; SLEEP APNEA Sleep apnea type : SHELBY, Most Recent Apnea-Hypopnea Index (AHI): 47.7 Treatment : PAP therapy DME: [employer] PAP History: Uses Bilevel PAP for 2 [...] or near accidents due to drowsy drivin [place] Sleepiness Scale 04/28/2022 Score Incomplete PROMIS CAT [...] which included preparing to see the patient, lqwm-dt-[id number] patient care, completing clinical documentation, obtaining and/or reviewing separately obtained history, counseling and educating the patient/family/caregiver, ordering medications, tests, or procedures, and communicating results to the patient/family/caregiver. documented in this encounter [facility] 11-17-2022 Instructions Agustina Plascencia MD - 11/17/2022 5:34 PM EDT [...] are our recommendations: - Cognitive therapy at [facility]. - Aricept 5 mg daily with breakfast - Namenda 5 twice a day with breakfast and dinner. - Maintain physically, socially and cognitively healthy lifestyle. - Schedule in person report in February 2023. Please schedule next visit with Agustina Plascencia MD, PhD or Kimo Pate NP in person in February -March 2023 To schedule testing and visits please call: [phone]. If you have new, unexpected concerns in between visits please call our office at [phone] ( you will be able to reach one of our nurses). [facility] fax [phone] Ways to keep your brain healthy: Follow [...] fish and fish high in mercury (swordfish, Hungarian sea martinez, orange roughy, ahi tuna, albacore [...] resources are: The Alzheimer's Association (web site: alz.org/karnack) available 24 hours a day, 7 days per week. Contact: Local: ; Toll free: [phone] [facility] [place] (web site: Caregiver.org) MARLEEN Hawkins-- a secure online solution for quality information, support, and resources for family caregivers. Contact: Toll-free number: [phone] Alzheimers.gov - Find Alzheimer disease and related dementias information, resources, research and more. documented in this encounter [facility] 11-17-2022 History of Present illness Narrative Images from the original note were not included. Estella Jeffery [address] [place] [id number] November 17, 2022 [facility] Report Virtual Virtual visit with Patient and family members Chief complaint: poor memory, forgetfulness I have communicated my name and active licensure. The patient's identity and physical location were verified at the time of this visit. Either the patient or their legal high school admissions representative has been informed of the risks [...] that time. 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 He recalls forgetting a clip/tie for his gun one day. He also failed firearm safety training which is required every months. He states he is still able to perform ADLs at home and still able to work in his other job with [employer]. 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 2 children. Social History Tobacco Use Smoking status: Never Smokeless tobacco: Never Substance Use Topics Alcohol use: Not Currently Social History reviewed by Agustina Plascencia MD PAST MEDICAL HISTORY Diagnosis Date [...] biomarkers confirmed- early onset. Bradycardia. PLAN: - [facility] referral - Cognitive therapy at [facility]. - Aricept 5 mg daily with [...] testing as well as coordinating care. . Agustina Plascencia MD, PhD Geriatric Psychiatry [facility] CC: 1. No primary care provider on file., (fax) None documented in this encounter [facility] 10-12-2022 Nurse Note [facility] LUMBAR PUNCTURE NURSE DISCHARGE NOTE The patient [...] Tanisha Jeffers RN documented in this encounter [facility] 10-12-2022 Instructions Miguelito Chicas APRN.WAITER/WAITRESS TAVERN - 10/12/2022 10:31 AM EDT Images from the original note were not included. [facility] [place] GOING HOME INSTRUCTIONS POST LP HEADACHE Prevention [...] as coffee or tea You can take zbgf-dgg-ivyktrv Tylenol and/or Ibuprofen as directed INFECTION PREVENTION [...] from 8-5pm, please contact our office line [phone] and then hit 0 , please ask our administrative executive to page the provider who performed the spinal tap. -For nights or weekends, call or toll free and ask the tetryl boiling tub operator the page the Neurology resident on-call. 2. If your headache is unusually severe regardless of bedrest or lasts more than two days 3. If you develop a fever 4. If you notice inflammation, pus formation or clear drainage from the site of the needle puncture You may resume your usual activities after 48 hours. documented in this encounter [facility] 10-12-2022 History of Present illness Narrative [facility] PROCEDURE FOR DIAGNOSTIC TESTING Estella Jeffery, [id number] October 12, 2022, 8:57 AM INFORMED CONSENT The risks, benefits and anticipated outcomes of the procedure, the risks and benefits of the alternatives to the procedure and the roles and tasks of the personnel to be involved were discussed with the patient, who consents to the procedure and agrees to proceed. I verify that I personally obtained Estella Jeffery's consent, Miguelito Chicas APRN.CNP UNIVERSAL PROTOCOL [...] Performed by: Miguelito Chicas APRN.CNP Asst: Tanisha jeffesr RN / Ana Escalera RN Relevant documentation, [...] October 12, 2022 documented in this encounter [facility] 08-12-2022 History of Present illness Narrative [...] Abs Lymph 1.00 - 4.00 k/uL 1.45 [place]% % 6.2 Abs [place] <0.87 k/uL 0.31 Eosin% % 0.6 Abs Eosin <0.46 k/uL 0.03 Baso% % 0.8 Abs Baso <0.11 k/uL 0.04 Immature Gran % % 0.2 IMMATURE GRANS (ABS) <0.10 k/uL <0.03 NRBC /100 WBC 0.0 Absolute nRBC <0.01 k/uL <0.01 [employer]TYPE [employer] Coordination Interventions: none Leah Mckeon RN documented in this encounter [facility] 08-11-2022 Instructions Agustina Plascencia MD - 08/11/2022 3:36 PM EST [...] with breakfast. Please schedule next visit with Agustina Plascencia MD, PhD in person or virtual after lumbar puncture after testing To schedule testing and visits please call: [phone]. If you have new, unexpected concerns in between visits please call our office at [phone] ( you will be able to reach one of our nurses). [facility] fax [phone] Ways to keep your brain healthy: Follow [...] fish and fish high in mercury (swordfish, Hungarian sea martinez, orange roughy, ahi tuna, albacore [...] per week. Contact: Local: ; Toll free: [phone] [facility] [place] (web site: Caregiver.org) MARLEEN Ross-- a secure online solution for quality information, support, and resources for family caregivers. Contact: Toll-free number: [phone] Alzheimers.gov - Find Alzheimer disease and related dementias information, resources, research and more. documented in this encounter [facility] 08-11-2022 History of Present illness Narrative Images from the original note were not included. Estella Jfefery [address] [place] [address] August 11, 2022 Time: 2:35 PM [facility] OUTPATIENT VISIT TYPE New Patient Visit Virtual Virtual visit with Patient and family members Chief complaint: poor memory, forgetfulness SUBJECTIVE: Estella Jeffery is a 57 year old male [...] that time. 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 He recalls forgetting a clip/tie for his gun one day. He also failed firearm safety training which is required every months. He states he is still able to perform ADLs at home and still able to work in his other job with [employer]. 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 2 children. Social History Tobacco Use Smoking status: Never Smokeless tobacco: Never Substance Use Topics Alcohol use: Not Currently Social History reviewed by Agustina Plascencia MD PAST MEDICAL HISTORY Diagnosis Date [...] testing as well as coordinating care. . Agustina Plascencia MD, PhD Geriatric Psychiatry [facility] CC: 1. No primary care provider on file., (fax) None documented in this encounter [facility] 07-22-2022 History of Present illness Narrative No show. Connection aborted after 15 min. of waiting online KGR documented in this encounter [facility] 05-07-2022 Miscellaneous Notes Radiology Service Progress Note PATIENT NAME: Estella Jeffery DATE OF SERVICE: May 07, 2022 [...] DATA: Not applicable SIGNED BY: Nicole Huffman complex case manager May 07, 2022 1:31 PM documented in this encounter [facility] 04-30-2022 Instructions Roosevelt Merlos MD - [...] will have a prescription sent to a [employer] ([employer] medical equipment) company - [employer] who will be calling you in the next 1-2 weeks or so. Please call them directly or us if you do not hear from them in this time frame. - You should be eligible for new supplies approximately every 3-6 months, depending on your insurance coverage. - If your mask doesn't fit well, call the [employer] company before 30 days are up to get a new mask without an additional charge. - Insurance requires regular usage and periodic office follow ups for PAP therapy, to continue to cover supplies. - Follow up in 2 months in the office. Recommend scheduling this appointment now to ensure the best time for you. [facility] Requirements - Your insurance requires a comg-wq-qzgl follow up visit within a 31-90 day [...] for BiPAP supplies. documented in this encounter [facility] 04-30-2022 History of Present illness Narrative Images from the original note were not included. [facility] New Patient Evaluation PATIENT NAME: Estella Jeffery DATE OF SERVICE: April 30, 2022 CONSULTING PROVIDER: Narciso Guerra [address] [facility] [address] REASON FOR CONSULT: Narciso Guerra sends the patient for an opinion about SHELBY. My findings and recommendations will be transmitted electronically via shared medical record to the consulting provider. HPI: Estella Jeffery is a 56 year old male [...] or near accidents due to drowsy drivin [place] Sleepiness Scale 04/28/2022 Score Incomplete PROMIS CAT [...] will have a prescription sent to a [employer] company - [employer] who will be calling you in the next 1-2 weeks or so. Please call them directly or us if you do not hear from them in this time frame. - You should be eligible for new supplies approximately every 3-6 months, depending on your insurance coverage. - If your mask doesn't fit well, call the [employer] company before 30 days are up to get a new mask without an additional charge. - Insurance requires regular usage and periodic office follow ups for PAP therapy, to continue to cover supplies. - Follow up in 2 months in the office. Recommend scheduling this appointment now to ensure the best time for you. Roosevelt Merlos PGY-4 Sleep fellow [facility] I have supervised and discussed the patient case with the Sleep Medicine Fellow including interviewing the patient in person and have updated the electronic medical record where necessary. I agree with the history, physical, impression and recommendations as documented. Gera Cardnoa DO, CBSM, ABSM Clinical Staff Sleep Medicine [facility] [place] [facility] [address] [place] [address] Mail Code [address] [place] [address] documented in this encounter [facility] 04-26-2022 History of Present illness Narrative Sleep Study Check-In Documentation Date: April 26, 2022 Name: Estella Jeffery Patient was accompanied by Spouse. Location: [...] Program (KP): KP was not completed in [facility] by patient and accepted Study type: Split Study-Polysomnogram with CPAP titration Adverse Event: No (If yes create a new abstract) SERS Event: No Comments: Patient was advised to follow up with their ordering provider regarding test results CC video April 25, 2022 Standing PSG Orders signed in the last 90 days None Future PSG Orders signed in the last 90 days Ordered Auth. provider POLYSOMNOGRAM (PSG) [[id number]] 04/22/22 Narciso Guerra MD Assoc. diagnoses: Cognitive [...] 8:46 PM 04/25/2022 documented in this encounter [facility] 04-22-2022 History of Present illness Narrative [facility] [place] AUDIOLOGIC EVALUATION REPORT Name: Estella Jeffery CC#: [id number] Date of Service: 04/22/2022 Date of : 1965 Age: [age] year old Referred by: Narciso Guerra [address] [facility] [place] [address] Referred for: Evaluation of the cause of disorder of hearing, tinnitus, or balance. Referral documented: In an order in [facility] Patient's major complaints: Estella reported he feels he has difficulty hearing/understanding speech particularly his . He Also, he feels his understanding, comprehension is a problem. History of intermittent tinnitus ringing in both ears for the last 1 year. Estella reported he had COVID April 2021. The patient reported a past history of noise exposure: occupational ([employer] x 8 years). Estella Jeffery was seen for an initial audiologic evaluation. See [facility] Audiogram for additional reported history and [...] evaluation of middle ear function. CPT code: 67940 RIGHT EAR: Tympanogram that was flat, with no identifiable peak and reduced TM mobility consistent with a conductive pathology (wax). LEFT EAR: Normal ME pressure and TM compliance (mobility). ACOUSTIC REFLEXES Description of procedure: This test is an objective measure of auditory and facial nerve pathways. CPT code: 85955, 87102 RIGHT EAR PROBE EAR: (ipsi right stimulus [...] bone conduction and speech recognition testing. CPT code:49974 RIGHT EAR: Hearing Sensitivity: Did not test. Word Recognition Score: Did not test. LEFT EAR: Hearing Sensitivity: Did not test. Word Recognition Score: Did not test. RECOMMENDATIONS Medical follow up for removal of bilateral impacted cerumen. Patient will see [facility] today. Hearing Test after #1. Juana Horta, CCC/A Clinical Cheese Specialist JIMENEZ Abbrev- iation Definition Degree of hearing sensitivity dB range WNL within normal limits WNL 0 - 20 SNHL sensorineural hearing loss Mild 20-40 CHL conductive hearing loss Moderate 40-55 MHL mixed hearing loss Moderately-Severe 55-70 WRS word recognition score Severe 70-90 ME middle ear Profound 90 + TM tympanic membrane documented in this encounter [facility] 04-22-2022 History of Present illness Narrative This note was created using [employer]. Subjective Estella Jeffery is a 56 year old male. [...] externa of left ear, unspecified type Plan: llejbafv-kiaeketwd-mxcraqltkhutw e (CORTISPORIN) 3.5-10,000-1 mg/mL-unit/mL-% otic suspension Use as directed Follow up with PCP if symptoms worsen or do not improve Brenda Blanco APRN.EFRAIN April 22, 2022 documented in this encounter [facility] 04-22-2022 Instructions Brenda Blanco APRN.EFRAIN - [...] made for swimming. documented in this encounter [facility] 07-27-2020 Note MR#: [id number] I [facility] Pt. Name: Estella Jeffery Admitted: 07/24/2020 Discharged: 07/26/2020 Date of [...] Ga MD Date Trans: 07/27/2020 03:32 A/patricia [id number]:[id number] cc: Jae Lopez M.D. [address] [id number] [facility] 07-24-2020 Note MR#: [id number] I [facility] Pt. Name: Estella Jeffery Admitted: 07/21/2020 Discharged: 07/23/2020 Date of [...] Mckenzie/Ayanna Ga MD Date Trans: 07/24/2020 10:00 A/patricia [id number]:[id number] cc: Jae Lopez M.D. [address] [place] [phone] [facility] Evaluation + Plan note No data available for this section [facility] Evaluation + Plan note Future Appointments Appointment Date:06/26/2024 12:00:00 PM Scheduled Provider: Location:[facility] Appointment Type:Surgery FT Appointment Date:07/11/2024 11:15:00 AM Scheduled Provider:Danni Graham MD Location:[facility] Appointment Type:URO Office Visit [facility] Evaluation + Plan note Future Appointments Appointment Date:07/11/2024 11:15:00 AM Scheduled Provider:Danni Graham MD Location:[facility] Appointment Type:URO Office Visit [facility] Evaluation note Diagnosis Bilateral impacted cerumen- Primary Impacted cerumen Elevated blood pressure reading without diagnosis of hypertension Acute otitis externa of left ear, unspecified type [facility] Diagnosis Bilateral impacted cerumen- Primary Impacted cerumen [facility]* Diagnosis Sleep apnea, unspecified type- Primary Sleep hypopnea Other sleep disturbances [facility]* Diagnosis SHELBY (obstructive sleep apnea)- Primary Obstructive sleep apnea (adult) (pediatric) [facility] Diagnosis Memory loss [facility]* Diagnosis Memory loss- Primary [facility]* Diagnosis Memory loss- Primary Encounter for lumbar puncture [facility]* Diagnosis Alzheimer's disease (HCC)- Primary Alzheimer's disease [facility] Diagnosis Obstructive sleep apnea- Primary Obstructive sleep apnea (adult) (pediatric) Primary central sleep apnea Hyperlipidemia, unspecified hyperlipidemia type [facility]* Diagnosis Alzheimer's disease (HCC)- Primary Alzheimer's disease [facility]* Diagnosis Research study patient- Primary [facility]* Diagnosis Cognitive changes Other signs and symptoms involving cognition [facility]* Diagnosis Alzheimer's disease (HCC) Alzheimer's disease [facility]* Diagnosis Alzheimer's disease (HCC) Alzheimer's disease documented [facility] noteNo assessment information availableElyria [facility] Work Phone: Evaluation note* Diagnosis Dementia with behavioral disturbance (CMS-HCC)- Primary Dementia with behavioral disturbance (CMS-HCC) Status post colostomy, follow-up exam ([facility]-HCC) Follow-up examination, following unspecified surgery Altered mental status Status post colostomy, follow-up exam (CMS-HCC) Follow-up examination, following unspecified surgery [facility] Diagnosis History of traumatic brain injury- Primary Personal history of traumatic brain injury Dementia, unspecified dementia severity, unspecified dementia type, unspecified whether behavioral, psychotic, or mood disturbance or anxiety (HCC) Cognitive deficits Unspecified persistent mental disorders due to conditions classified elsewhere Impaired mobility and ADLs Other ill-defined conditions 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) [facility] Diagnosis 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 Episode of confusion [facility]* Diagnosis Orthostatic hypotension- Primary Bradycardia Other specified cardiac dysrhythmias [facility]* Diagnosis Dementia with behavioral disturbance (CMS-HCC)- Primary [facility] No data available for this section [facility] InstructionsNot on filedocumented in this encounter [facility]* Attachments The following attachments cannot be sent through Care Everywhere. * Caring for someone with Alzheimer disease or dementia (Nepalese) documented in this encounterProGerman Hospital SystemInstructionsNot on file documented in this encounterProGerman Hospital SystemInstructionsNot on file documented in this encounterProGerman Hospital SystemInstructionsNot on file documented in this encounterNor[facility] SystemProgress note No data available for this section [facility] reason for visit Narrative* Auth/Cert (Routine) Specialty Diagnoses / Procedures Referred By Contac t Referred To Contact Diagnoses Dementia with behavioral disturbance (CMS-HCC) At risk for long QT syndrome Altered mental status Altered Mental Status Nichol Heath MD [address] [place] [address], [address] [place] [address] Phone: tel: fax: Referral ID Status Reason Start Date Expiration Date Visits Re quested Visits Authorized [id number] 1 1 [facility] Summary Purpose Family History No Family [...] FoundNo Family History Records Found Advance Directives Date Activated Date Inactivated Comments 10/19/2024 7:19 AM 10/24/2024 5:46 PM Date Activated Date Inactivated Comments 07/06/2024 8:48 AM 07/22/2024 12:29 PM Date Activated Date Inactivated Comments 11/24/2019 2:56 PM 11/25/2019 2:05 PM Date Activated Date Inactivated Comments 07/06/2024 8:48 AM 07/22/2024 12:29 PM Date Activated Date Inactivated Comments 11/24/2019 2:56 PM 11/25/2019 2:05 PM Date Activated Date Inactivated Comments 07/06/2024 8:48 AM Date Activated Date Inactivated Comments 11/24/2019 2:56 PM 11/25/2019 2:05 PM Date Activated Date Inactivated Comments 07/06/2024 8:48 AM Date Activated Date Inactivated Comments 10/19/2024 7:19 AM Date Activated Date Inactivated Comments 10/19/2024 7:19 AM 10/24/2024 5:46 PM Date Activated Date Inactivated Comments 07/06/2024 8:48 AM 07/22/2024 12:29 PM Date Activated Date Inactivated Comments 11/24/2019 2:56 PM 11/25/2019 2:05 PM Reason for Referral Specialty Diagnoses / Procedures Referred By Naseem araujo Referred To Contact Diagnoses Sleep apnea, unspecified type Sleep hypopnea Procedures CONSULT TO SLEEP MEDICINE - ADULT OFFICE/OUTPATIENT [facility] 60-74 MINUTES Narciso Guerra MD [address] [place] [address] Referral ID Status Reason Start Date Expiration Date Visits Requested Visits Authorized [id number] Authorized PCP Requested Referral 04/28/2022 04/28/2023 1 1 Specialty Diagnoses / Procedures Referred By Contac t Referred To Contact [facility] Diagnoses Alzheimer's disease (HCC) Procedures CONSULT TO SPEECH THERAPY OFFICE/OUTPATIENT [facility] 60-74 MINUTES Agustina Plascencia MD [id number] [facility] [place] [address] Referral ID Status Reason Start Date Expiration Date Visits Requested Visits Authorized [id number] Pending Review Auto-Generat ed Referral 11/17/2022 11/17/2023 1 1 Specialty Diagnoses / Procedures Referred By Contac t Referred To Contact MR IMAGING Diagnoses Cognitive changes Procedures MRI 3D POST PROCESSING 3D RENDERING W/INTERP&POSTPROC DIFF WORK STATION Narciso Guerra MD [address] [place] [address] [facility] [place] [address] Referral ID Status Reason Start Date Expiration Date V isits Requested Visits Authorized [id number] Closed Auto-Generate d Referral 04/22/2022 05/22/2023 1 1 Specialty Diagnoses / Procedures Referred By Contac t Referred To Contact MR IMAGING Diagnoses Cognitive changes Procedures MRI BRAIN WO IVCON MRI BRAIN BRAIN STEM W/O CONTRAST MATERIAL Narciso Guerra MD [address] [place] [address] [facility] [place] [address] Referral ID Status Reason Start Date Expiration Date V isits Requested Visits Authorized [id number] Closed Auto-Generate d Referral 04/22/2022 06/06/2022 1 [...] section and content) DATE CREATED AUTHOR 04/15/2021 [facility] DATE CREATED AUTHOR AUTHOR'S ORGANIZ ATION 05/09/2022 [facility] DATE CREATED AUTHOR AUTHOR'S ORGANIZ ATION 10/28/2022 [facility] DATE CREATED AUTHOR AUTHOR'S ORGANIZ ATION 06/28/2024 [facility] DATE CREATED AUTHOR AUTHOR'S ORGANIZ ATION 07/01/2024 [facility] DATE CREATED AUTHOR AUTHOR'S ORGANIZ ATION 07/04/2024 [facility] DATE CREATED AUTHOR AUTHOR'S ORGANIZ ATION 07/22/2024 [facility] DATE CREATED AUTHOR AUTHOR'S ORGANIZ ATION 08/05/2024 [facility] DATE CREATED AUTHOR AUTHOR'S ORGANIZ ATION 11/02/2024 [facility] DATE CREATED AUTHOR AUTHOR'S ORGANIZ ATION 11/08/2024 [facility] DATE CREATED AUTHOR AUTHOR'S ORGANIZ ATION 11/18/2024 [facility] Source Comments (unrecognize d section and content) In the event this informatio n is protected by the Federal Confidentiality of Alcohol and Drug Abuse Patient Records regulations: The Federal rules restrict any use of the information to criminally investigate or prosecute any alcohol or drug abuse patient.[facility] HospitalIn the event this information is protected by the Federal Confidentiality of Alcohol and Drug Abuse Patient Records regulations: The Federal rules restrict any use of the information to criminally investigate or prosecute any alcohol or drug abuse patient.[facility] HospitalIn the event this information is protected by the Federal Confidentiality of Alcohol and Drug Abuse Patient Records regulations: The Federal rules restrict any use of the information to criminally investigate or prosecute any alcohol or drug abuse patient.[facility] HospitalIn the event this information is protected by the Federal Confidentiality of Alcohol and Drug Abuse Patient Records regulations: The Federal rules restrict any use of the information to criminally investigate or prosecute any alcohol or drug abuse patient.[facility] HospitalIn the event this information is protected by the Federal Confidentiality of Alcohol and Drug Abuse Patient Records regulations: The Federal rules restrict any use of the information to criminally investigate or prosecute any alcohol or drug abuse patient.[facility] HospitalIn the event this information is protected by the Federal Confidentiality of Alcohol and Drug Abuse Patient Records regulations: The Federal rules restrict any use of the information to criminally investigate or prosecute any alcohol or drug abuse patient.[facility] HospitalIn the event this information is protected by the Federal Confidentiality of Alcohol and Drug Abuse Patient Records regulations: The Federal rules restrict any use of the information to criminally investigate or prosecute any alcohol or drug abuse patient.[facility] HospitalIn the event this information is protected by the Federal Confidentiality of Alcohol and Drug Abuse Patient Records regulations: The Federal rules restrict any use of the information to criminally investigate or prosecute any alcohol or drug abuse patient.[facility] HospitalIn the event this information is protected by the Federal Confidentiality of Alcohol and Drug Abuse Patient Records regulations: The Federal rules restrict any use of the information to criminally investigate or prosecute any alcohol or drug abuse patient.[facility] HospitalIn the event this information is protected by the Federal Confidentiality of Alcohol and Drug Abuse Patient Records regulations: The Federal rules restrict any use of the information to criminally investigate or prosecute any alcohol or drug abuse patient.[facility] HospitalIn the event this information is protected by the Federal Confidentiality of Alcohol and Drug Abuse Patient Records regulations: The Federal rules restrict any use of the information to criminally investigate or prosecute any alcohol or drug abuse patient.[facility] HospitalIn the event this information is protected by the Federal Confidentiality of Alcohol and Drug Abuse Patient Records regulations: The Federal rules restrict any use of the information to criminally investigate or prosecute any alcohol or drug abuse patient.[facility] HospitalIn the event this information is protected by the Federal Confidentiality of Alcohol and Drug Abuse Patient Records regulations: The Federal rules restrict any use of the information to criminally investigate or prosecute any alcohol or drug abuse patient.[facility] HospitalIn the event this information is protected by the Federal Confidentiality of Alcohol and Drug Abuse Patient Records regulations: The Federal rules restrict any use of the information to criminally investigate or prosecute any alcohol or drug abuse patient.[facility] HospitalIn the event this information is protected by the Federal Confidentiality of Alcohol and Drug Abuse Patient Records regulations: The Federal rules restrict any use of the information to criminally investigate or prosecute any alcohol or drug abuse patient.[facility] HospitalIn the event this information is protected by the Federal Confidentiality of Alcohol and Drug Abuse Patient Records regulations: The Federal rules restrict any use of the information to criminally investigate or prosecute any alcohol or drug abuse patient.Mem[facility] HospitalIn the event this information is protected by the Federal Confidentiality of Alcohol and Drug Abuse Patient Records regulations: The Federal rules restrict any use of the information to criminally investigate or prosecute any alcohol or drug abuse patient.[facility] HospitalIn the event this information is protected by the Federal Confidentiality of Alcohol and Drug Abuse Patient Records regulations: The Federal rules restrict any use of the information to criminally investigate or prosecute any alcohol or drug abuse patient.[facility] HospitalIn the event this information is protected by the Federal Confidentiality of Alcohol and Drug Abuse Patient Records regulations: The Federal rules restrict any use of the information to criminally investigate or prosecute any alcohol or drug abuse patient.[facility] HospitalIn the event this information is protected by the Federal Confidentiality of Alcohol and Drug Abuse Patient Records regulations: The Federal rules restrict any use of the information to criminally investigate or prosecute any alcohol or drug abuse patient.[facility] HospitalIn the event this information is protected by the Federal Confidentiality of Alcohol and Drug Abuse Patient Records regulations: The Federal rules restrict any use of the information to criminally investigate or prosecute any alcohol or drug abuse patient.[facility] HospitalIn the event this information is protected by the Federal Confidentiality of Alcohol and Drug Abuse Patient Records regulations: The Federal rules restrict any use of the information to criminally investigate or prosecute any alcohol or drug abuse patient.[facility] HospitalIn the event this information is protected by the Federal Confidentiality of Alcohol and Drug Abuse Patient Records regulations: The Federal rules restrict any use of the information to criminally investigate or prosecute any alcohol or drug abuse patient.[facility] HospitalIn the event this information is protected by the Federal Confidentiality of Alcohol and Drug Abuse Patient Records regulations: The Federal rules restrict any use of the information to criminally investigate or prosecute any alcohol or drug abuse patient.Mem[facility] HospitalIn the event this information is protected by the Federal Confidentiality of Alcohol and Drug Abuse Patient Records regulations: The Federal rules restrict any use of the information to criminally investigate or prosecute any alcohol or drug abuse patient.[facility] HospitalIn the event this information is protected by the Federal Confidentiality of Alcohol and Drug Abuse Patient Records regulations: The Federal rules restrict any use of the information to criminally investigate or prosecute any alcohol or drug abuse patient.[facility] HospitalIn the event this information is protected by the Federal Confidentiality of Alcohol and Drug Abuse Patient Records regulations: The Federal rules restrict any use of the information to criminally investigate or prosecute any alcohol or drug abuse patient.[facility] HospitalIn the event this information is protected by the Federal Confidentiality of Alcohol and Drug Abuse Patient Records regulations: The Federal rules restrict any use of the information to criminally investigate or prosecute any alcohol or drug abuse patient.[facility] HospitalIn the event this information is protected by the Federal Confidentiality of Alcohol and Drug Abuse Patient Records regulations: The Federal rules restrict any use of the information to criminally investigate or prosecute any alcohol or drug abuse patient.[facility] HospitalIn the event this information is protected by the Federal Confidentiality of Alcohol and Drug Abuse Patient Records regulations: The Federal rules restrict any use of the information to criminally investigate or prosecute any alcohol or drug abuse patient.[facility] Reason for Visit (unrecogniz ed section and content) Reason Comments Earwax Bilateral ear Specialty Diagnoses / Procedures Referred By Contac t Referred To Contact Diagnoses Bilateral hearing loss, unspecified hearing loss type Procedures HEARING TEST/AUDIOGRAM COMPRE AUDIOMETRY THRESHOLD [place] [address] [place] [address] [facility] [address] [place] [address] Referral ID Status Reason Start Date Expiration Date V isits Requested Visits Authorized [id number] Closed Auto-Generate d Referral 04/22/2022 07/21/2022 1 1 Reason Comments New Patient Evaluation Had sleep study d one. Specialty Diagnoses / Procedures Referred By Contac t Referred To Contact Diagnoses Sleep apnea, unspecified type Sleep hypopnea Procedures CONSULT TO SLEEP MEDICINE - ADULT OFFICE/OUTPATIENT [facility] MDM 60-[place] [address] [place] [address] Referral ID Status Reason Start Date Expiration Date V isits Requested Visits Authorized [id number] Closed PCP Requested Referral 04/28/2022 04/28/2023 1 1 Reason Comments Memory Loss Specialty Diagnoses / Procedures Referred By Contac t Referred To Contact Neurology Diagnoses Memory loss Procedures CONSULT TO NEUROLOGY OFFICE/OUTPATIENT [facility] MDM 60-[place] [address] [place] [address] Referral ID Status Reason Start Date Expiration Date V isits Requested Visits Authorized [id number] Closed PCP Requested Referral 06/22/2022 06/22/2023 1 1 Reason Comments Lumbar Puncture Reason Comments Memory Loss Reason Comments Sleep Apnea Reason Comments PAP Rx Faxed DME: [facility] Reason Comments Returning Patient's Call Reason Comments Refill Request Reason Comments PAP Therapy Follow Up 12/18/22 - 01/16/23 L AST FOUND DL FROM DME Reason Comments Research [facility] (IRB 19-366) I nterest Reason Comments Research [facility] (IRB [id number]) Specialty Diagnoses / Procedures Referred By Contac t Referred To Contact MR IMAGING Diagnoses Cognitive changes Procedures MRI BRAIN WO IVCON MRI BRAIN BRAIN STEM W/O CONTRAST MATERIAL Narciso Guerra MD [address] [place] [address] [place] [id number] Referral ID Status Reason Start Date Expiration Date V isits Requested Visits Authorized [id number] Closed Auto-Generate d Referral 04/22/2022 06/06/2022 1 1 Reason Onset Date Comments Refill Request 12/06/2023 Reason Onset Date Comments patient concern 07/12/2024 Reason Comments Patient Question Reason Comments Consult Reason Comments New Patient Reason Onset Date Comments Hypotension 10/23/2024 Reason Comments Follow-up EST PT HOSP FU [facility] CARDIA SCHED W/ Reason Onset Date Comments MRI 12/18/2024 Patient Care team informatio n (unrecognized section and content) Team Status: Active Member Role Status Dates Jae Lopez MD Primary Care Provider Active Team Status: Inactive Member Role Status Dates Danni Graham MD Attending Provider Active Start : March 15, 2024 End: March 15, 2024 Jae Lopez MD Primary Care Provider Active Start: March 15, 2024 End: March 15, 2024 Cost Accounting Clerk Relationship Specialty Start Date End Date Jae Lopez MD PCP - General 03/27/18 Cost Accounting Clerk Relationship Specialty Start Date End Date Jae Lopez MD PCP - General 03/27/18 Cost Accounting Clerk Relationship Specialty Start Date End Date Jae Lopez MD PCP - General 03/27/18 Cost Accounting Clerk Relationship Specialty Start Date End Date Jae Lopez MD PCP - General 03/27/18 Cost Accounting Clerk Relationship Specialty Start Date End Date Jae Lopez MD PCP - General 03/27/18 Cost Accounting Clerk Relationship Specialty Start Date End Date Jae [...] RN) 0939 (Given - Provider: Neela Beaver RN)2138 (Given - Provider: Claribel Amato RN) 0826 (Given - Provider: Ethel Martinez RN)2100 (Due) donepeziL (ARICEPT) tablet 5 mg 5 mg, oral, Nightly, First dose on Tue07/06/24 at 2200, Look-alike/sound-alike medication - verify indication for use. 2256 (Given - Provider: Claribel Amato RN) 2139 [...] RN) 0941 (Given - Provider: Neela Beaver RN)2138 (Given - Provider: Claribel Amato RN) DULoxetine (CYMBALTA) DR capsule 20 mg 20 mg, oral, Daily, First dose on Tue07/06/24 at 0900, Look-alike/sound-alike medication - verify indication for use. Swallow whole-do not crush or chew. Although the preventive maintenance coordinator does not recommend opening the capsule, the contents of capsule may be sprinkled on applesauce or in apple juice and swallowed (without chewing) immediately; do not sprinkle contents on chocolate pudding. 0840 (Given - Provider: Lorna Faye) 0941 (Given - Provider: Neela Beaver RN) 0826 (Given - Provider: Ethel Martinez, MARCI) enoxaparin (LOVENOX) syringe 40 mg 40 mg, [...] - Provider: Claribel Amato RN) 2200 (Due) nicotine (NICODERM CQ) 21 mg/24 hr [...] RN) 0826 (Given - Provider: Ethel Martinez, RN) QUEtiapine (SEROquel) tablet 150 mg(Linked Group 1) 150 mg, oral, Nightly, First dose (after last modification) on [place] 07/12/24 at 2200, Look-alike/sound-alike medication - verify indication for use. 2255 (Given - Provider: Claribel Amato RN) 213 (Given - Provider: Claribel Amato RN) 2200 [...] BE BASED ON THE PRIMARY CLINICAL RECORDS. [employer] [facility]. provides no warranty or guarantee of the accuracy or completeness of information in this document.
[2025-02-06 17:11] LABS: Alanine Aminotransferase 19 U/L (16-63); Albumin Globulin Ratio 0.6; Albumin Level 2.4 g/dL (3.4-5.0); Alkaline Phosphatase 61 U/L (46-116); Anion Gap 3.5; Aspartate Amino Transferase 24 U/L (15-37); Blood Urea Nitrogen 18.0 mg/dL (7.0-18.0); Calcium 8.0 mg/dL (8.5-10.1); Carbon Dioxide 34.6 mmol/L (21.0-32.0); Chloride 105 mmol/L (98-107); Estimated GFR (African America >60 (>=60 mL/min/1.73m^2); Estimated GFR (Non-African Ame >60 (>=60 mL/min/1.73m^2); Globulin 4.2 g/dL; Glucose 134 mg/dL (74-106); Potassium 4.1 mmol/L (3.5-5.1); Sodium 139 mmol/L (136-145); Total Protein 6.6 g/dL (6.4-8.2)
[2025-02-06 17:13] LABS: Lactate/Lactic Acid 1.3 mmol/L (0.4-2.0)
[2025-02-06 17:14] LABS: Hematocrit 39.2 % (42.0-54.0); Hemoglobin 13.3 g/dL (14.0-18.0); Immature Granulocytes Abs Auto 0.07 10^3/uL (0.00-0.03); Immature Granulocytes Pct Auto 1.2 % (0.0-0.5); Lymphocytes Absolute Auto 1.0 10^3/uL (1.2-3.8); Mean Corpuscular HGB Conc 33.9 g/dL (29.9-35.2); Mean Corpuscular Hemoglobin 28.1 pg (25.9-34.0); Mean Corpuscular Volume 82.7 fL (80.0-94.0); Platelet Count 54 10^3/uL (150-450); Red Blood Count 4.74 10^6/uL (4.70-6.10); White Blood Count 5.7 10^3/uL (4.0-11.0)
[2025-02-06 17:19] LABS: Magnesium 1.8 mg/dL (1.8-2.4)
[2025-02-06 17:55] LABS: ABG PCO2 45.1 mmHg (35.0-45.0); Allen Test POSITIVE (POSITIVE); HCO3 ABG 28.7 mmol/L (22.0-26.0); Liters per Minute RA; O2 Mode RA; Oxygen Saturation ABG 97.6 %; PO2 ABG 86.4 mmHg (80.0-100.0)
[2025-02-06 17:56] LABS: Puncture Site L RADIAL
--- NOTE | 2025-02-06 19:07 | ED.GENADUL1 ---
HPI HPI - General Adult General Chief complaint: Neuro Symptoms/Deficit Stated complaint: UNRESPONSIVE Time Seen by Provider: 02/06/25 15:40 Source: family Mode of arrival: ambulance History of Present Illness HPI narrative: Patient mentioned that he was unresponsive when they called EMS and they found that he was hypotensive by the time the EMS arrived his blood pressure was low and they gave him some fluid by the time the patient arrived to the ER he was not back at his baseline, no history of change in any medication no chest pain nausea vomiting or any other concerns The patient right now with his baseline was speaking short sentences and he is not showing distress although he does look pale Related Data Home Medications ?Medication ?Instructions ?Recorded ?Confirmed divalproex 125 mg capsule,delayed 500 mg PO Q12H 08/09/24 02/06/25 release sprinkle quetiapine 50 mg tablet 50 mg PO DAILY 08/09/24 02/06/25 midodrine 2.5 mg tablet mg 02/06/25 pantoprazole 40 mg tablet,delayed mg PO 02/06/25 release Previous Rx's ?Medication ?Instructions ?Recorded donepezil 10 mg tablet 10 mg PO QHS #30 tabs 08/11/24 duloxetine 30 mg capsule,delayed 30 mg PO DAILY #30 caps 08/11/24 release melatonin 10 mg capsule 10 mg PO DAILY #30 caps 08/11/24 quetiapine 200 mg tablet (Seroquel) 200 mg PO .qhs #30 tabs 08/11/24 Allergies Allergy/AdvReac Type Severity Reaction Status Date / Time No Known Drug Allergies Allergy Verified 02/06/25 15:52 Opioid HPI Opioid Management Most Recent Opioid Data: Last ORT Total Score 0 08/10/24, 02:11 Last ORT Risk Category Low Risk 08/10/24, 02:11 Ur Phencyclidine Scrn, (NEGATIVE) Negative 08/10/24, 01:35 Review of Systems ROS Status of ROS 10 or more systems reviewed and unremarkable except as noted in history and below [facility] Medical History Dementia ?F03.90 - Unspecified dementia, unspecified severity, without behavioral disturbance, psychotic disturbance, mood disturbance, and anxiety (ICD-10) Elevated TSH ?R79.89 - Other specified abnormal findings of blood chemistry (ICD-10) STEVO (acute kidney injury) ?N17.9 - Acute kidney failure, unspecified (ICD-10) Delirium ?R41.0 - Disorientation, unspecified (ICD-10) Altered mental status ?R41.82 - Altered mental status, unspecified (ICD-10) Hallucinations ?R44.3 - Hallucinations, unspecified (ICD-10) Acute delirium ?R41.0 - Disorientation, unspecified (ICD-10) Altered mental status ?R41.82 - Altered mental status, unspecified (ICD-10) Combative behavior ?R46.89 - Other symptoms and signs involving appearance and behavior (ICD-10) Dementia without behavioral disturbance ?F03.90 - Unspecified dementia, unspecified severity, without behavioral disturbance, psychotic disturbance, mood disturbance, and anxiety (ICD-10) Altered mental status ?R41.82 - Altered mental status, unspecified (ICD-10) GERD (gastroesophageal reflux disease) ?K21.9 - Gastro-esophageal reflux disease without esophagitis (ICD-10) Surgical History History of colostomy reversal ?Z98.890 - Other specified postprocedural states (ICD-10) H/O hernia repair ?Z98.890 - Other specified postprocedural states (ICD-10) ?Z87.19 - Personal history of other diseases of the digestive system (ICD-10) Family History Sister Family history of cancer Family history of diabetes mellitus Family history of hypertension Family history of stroke Mother Family history of diabetes mellitus Family history of hypertension Social History Within the past year, how often did you have a drink containing alcohol: never Score interpretation: A score less than 4 is consistent with normal alcohol consumption. Smoking status: Never smoker Non-prescribed substance use: denies use Previous occupational history: unemployed Highest level of school completed/degree received: Associate degree: academic program Are you now , , , , never or living with a partner: Little interest or pleasure in doing things: not at all Feeling down, depressed, or hopeless: not at all Exam Narrative Exam Narrative: Nurses notes and vital signs reviewed and patient is not hypoxic. General: Well-appearing and in no apparent distress. Skin: Warm, dry, no pallor noted. No rash. Head: Normocephalic, atraumatic. Neck: Supple, non-tender. Eye: Pupils are equal, round and EOMI. No scleral icterus. Ears, Nose, Mouth, and Throat: TM are clear, no nasal mucosal hypertrophy. Oral mucosa is moist, no posterior oropharynx erythema, uvula is mid-line Cardiovascular: Regular Rate and Rhythm without murmur, gallop or rub. Respiratory: No accessory muscle use or respiratory distress. Lungs are clear to auscultation, no wheezing, rales or rhonchi Chest Wall: no tenderness Back: No midline thoracic or lumbar vertebral tenderness. No CVA tenderness Musculoskeletal: normal ROM, no calf or popliteal tenderness, no lower extremity edema/swelling GI: Abdomen is soft, non-distended. Normal bowel sounds. No masses appreciated. No tenderness to palpation. No rebound, guarding, or rigidity noted. Neurological: A&O x1. No cranial nerve dysfunction observed. Constitutional Vital Signs, click to edit/add: Last Vital Signs Temp 98.2 F 02/06/25 15:40 Pulse 82 02/06/25 17:40 Resp 16 02/06/25 17:40 BP 94/78 02/06/25 17:48 Pulse Ox 97 02/06/25 17:00 O2 Del Method Room Air 02/06/25 15:40 Course Vital Signs Vital signs: Vital Signs Temperature 98.2 F 02/06/25 15:40 Pulse Rate 68 02/06/25 15:40 Respiratory Rate 18 02/06/25 15:40 Blood Pressure 82/68 L 02/06/25 15:40 Pulse Oximetry 97 02/06/25 15:40 Oxygen Delivery Method Room Air 02/06/25 15:40 Temperature 98.2 F 02/06/25 15:40 Pulse Rate 82 02/06/25 17:40 Respiratory Rate 16 02/06/25 17:40 Blood Pressure 94/78 02/06/25 17:48 Pulse Oximetry 97 02/06/25 17:00 Oxygen Delivery Method Room Air 02/06/25 15:40 Medical Decision Making MDM Narrative Medical decision making narrative: The patient EKG upon arrival showing sinus rhythm with a heart rate of [address] elevation or depression Repeated EKG shows some irregularity but the patient heart rate still around [address] elevation or depression The patient was provided 2 L fluid and blood pressure is now is 94/78 CBC and chemistry showed no acute significant pathology but the patient was hypotensive CT of the head showed no acute pathology and the patient x-ray shows no acute pathology as well Right now awaiting the second troponin the patient care will be transferred to Dr. Briscoe for further evaluation Lab Data Labs: Lab Results 02/06/25 02/06/25 02/06/25 Range/Units 16:45 17:40 18:35 WBC 5.7 (4.0-11.0) 10^3/uL RBC 4.74 (4.70-6.10) 10^6/uL Hgb 13.3 L (14.0-18.0) g/dL Hct 39.2 L (42.0-54.0) % MCV 82.7 (80.0-94.0) fL MCH 28.1 (25.9-34.0) pg MCHC 33.9 (29.9-35.2) g/dL RDW 14.6 (11.0-15.0) % Plt Count 54 L (150-450) 10^3/uL MPV 8.0 L (9.5-13.5) fL Neut % (Auto) 68.3 (43.0-75.0) % Lymph % (Auto) 16.6 L (20.5-60.0) % Lee % (Auto) 13.4 H (1.7-12.0) % Eos % (Auto) 0.2 L (0.9-7.0) % Baso % (Auto) 0.3 (0.2-2.0) % Neut # (Auto) 3.9 (1.4-6.5) 10^3/uL Lymph # (Auto) 1.0 L (1.2-3.8) 10^3/uL Lee # (Auto) 0.8 (0.3-0.8) 10^3/uL Eos # (Auto) 0.0 (0.0-0.7) 10^3/uL Baso # (Auto) 0.0 (0.0-0.1) 10^3/uL Abs Immat Gran (auto) 0.07 H (0.00-0.03) 10^3/uL Imm/Tot Granulo (auto) 1.2 H (0.0-0.5) % Puncture Site L radial ABG pH 7.412 (7.350-7.450) ABG pCO2 45.1 H (35.0-45.0) mmHg ABG pO2 86.4 (80.0-100.0) mmHg ABG HCO3 28.7 H (22.0-26.0) mmol/L ABG O2 Saturation 97.6 % ABG Base Excess 4.1 H (-2.0-2.0) mmol/L Phuc Test Positive (POSITIVE) O2 Liters/Min Ra Sodium 139 (136-145) mmol/L Potassium 4.1 (3.5-5.1) mmol/L Chloride 105 (98-107) mmol/L Carbon Dioxide 34.6 H (21.0-32.0) mmol/L Anion Gap 3.5 BUN 18.0 (7.0-18.0) mg/dL Creatinine 1.08 (0.70-1.30) mg/dL Est GFR ( Amer) >60 (>=60 mL/min/1.73m^2) Est GFR (Non-Af Amer) >60 (>=60 mL/min/1.73m^2) BUN/Creatinine Ratio 16.7 Glucose 134 H (74-106) mg/dL Lactate 1.3 (0.4-2.0) mmol/L Calcium 8.0 L (8.5-10.1) mg/dL Magnesium 1.8 (1.8-2.4) mg/dL Total Bilirubin 0.9 (0.2-1.0) mg/dL AST 24 (15-37) U/L ALT 19 (16-63) U/L Alkaline Phosphatase 61 (46-116) U/L Troponin I High Sens 4.7 5.5 (4.0-76.1) pg/mL Total Protein 6.6 (6.4-8.2) g/dL Albumin 2.4 L (3.4-5.0) g/dL Globulin 4.2 g/dL Albumin/Globulin Ratio 0.6 Ethanol Quant <3 mg/dL Discharge Plan Discharge Patient Disposition: Still a Patient
[2025-02-06 20:13] LABS: Glucose Urine UA NEGATIVE (NEGATIVE)
--- NOTE | 2025-02-06 20:23 | ECG_ITS ---
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
[2025-02-06 20:24] LABS: Cast Seen? NONE SEEN #/LPF (NONE SEEN); Crystals Seen? None Seen #/HPF (None Seen)
--- NOTE | 2025-02-06 20:24 | ED.GENADUL1 ---
HPI HPI - General Adult General Chief complaint: Neuro Symptoms/Deficit Stated complaint: UNRESPONSIVE Time Seen by Provider: 02/06/25 15:40 Source: family Mode of arrival: ambulance History of Present Illness HPI narrative: 59-year-old male presenting to the emergency department for syncopal episode and was initially seen by Dr. Cao and signed out to me after discussing the case with her thoroughly. Please see her full history and physical exam Related Data Home Medications ?Medication ?Instructions ?Recorded ?Confirmed divalproex 125 mg capsule,delayed 500 mg PO Q12H 08/09/24 02/06/25 release sprinkle quetiapine 50 mg tablet 50 mg PO DAILY 08/09/24 02/06/25 midodrine 2.5 mg tablet mg 02/06/25 pantoprazole 40 mg tablet,delayed mg PO 02/06/25 release Previous Rx's ?Medication ?Instructions ?Recorded donepezil 10 mg tablet 10 mg PO QHS #30 tabs 08/11/24 duloxetine 30 mg capsule,delayed 30 mg PO DAILY #30 caps 08/11/24 release melatonin 10 mg capsule 10 mg PO DAILY #30 caps 08/11/24 quetiapine 200 mg tablet (Seroquel) 200 mg PO .qhs #30 tabs 08/11/24 Allergies Allergy/AdvReac Type Severity Reaction Status Date / Time No Known Drug Allergies Allergy Verified 02/06/25 15:52 Opioid HPI Opioid Management Most Recent Opioid Data: Last ORT Total Score 0 08/10/24, 02:11 Last ORT Risk Category Low Risk 08/10/24, 02:11 Ur Phencyclidine Scrn, (NEGATIVE) Negative 08/10/24, 01:35 [facility] Medical History Dementia ?F03.90 - Unspecified dementia, unspecified severity, without behavioral disturbance, psychotic disturbance, mood disturbance, and anxiety (ICD-10) Elevated TSH ?R79.89 - Other specified abnormal findings of blood chemistry (ICD-10) STEVO (acute kidney injury) ?N17.9 - Acute kidney failure, unspecified (ICD-10) Delirium ?R41.0 - Disorientation, unspecified (ICD-10) Altered mental status ?R41.82 - Altered mental status, unspecified (ICD-10) Hallucinations ?R44.3 - Hallucinations, unspecified (ICD-10) Acute delirium ?R41.0 - Disorientation, unspecified (ICD-10) Altered mental status ?R41.82 - Altered mental status, unspecified (ICD-10) Combative behavior ?R46.89 - Other symptoms and signs involving appearance and behavior (ICD-10) Dementia without behavioral disturbance ?F03.90 - Unspecified dementia, unspecified severity, without behavioral disturbance, psychotic disturbance, mood disturbance, and anxiety (ICD-10) Altered mental status ?R41.82 - Altered mental status, unspecified (ICD-10) GERD (gastroesophageal reflux disease) ?K21.9 - Gastro-esophageal reflux disease without esophagitis (ICD-10) Surgical History History of colostomy reversal ?Z98.890 - Other specified postprocedural states (ICD-10) H/O hernia repair ?Z98.890 - Other specified postprocedural states (ICD-10) ?Z87.19 - Personal history of other diseases of the digestive system (ICD-10) Family History Sister Family history of cancer Family history of diabetes mellitus Family history of hypertension Family history of stroke Mother Family history of diabetes mellitus Family history of hypertension Social History Within the past year, how often did you have a drink containing alcohol: never Score interpretation: A score less than 4 is consistent with normal alcohol consumption. Smoking status: Never smoker Non-prescribed substance use: denies use Previous occupational history: unemployed Highest level of school completed/degree received: Associate degree: academic program Are you now , , , , never or living with a partner: Little interest or pleasure in doing things: not at all Feeling down, depressed, or hopeless: not at all Exam Constitutional Vital Signs, click to edit/add: Last Vital Signs Temp 98.2 F 02/06/25 15:40 Pulse 82 02/06/25 17:40 Resp 16 02/06/25 17:40 BP 104/80 02/06/25 19:13 Pulse Ox 95 02/06/25 19:13 O2 Del Method Room Air 02/06/25 15:40 Course Vital Signs Vital signs: Vital Signs Temperature 98.2 F 02/06/25 15:40 Pulse Rate 68 02/06/25 15:40 Respiratory Rate 18 02/06/25 15:40 Blood Pressure 82/68 L 02/06/25 15:40 Pulse Oximetry 97 02/06/25 15:40 Oxygen Delivery Method Room Air 02/06/25 15:40 Temperature 98.2 F 02/06/25 15:40 Pulse Rate 82 02/06/25 17:40 Respiratory Rate 16 02/06/25 17:40 Blood Pressure 104/80 02/06/25 19:13 Pulse Oximetry 95 02/06/25 19:13 Oxygen Delivery Method Room Air 02/06/25 15:40 Medical Decision Making MDM Narrative Medical decision making narrative: Second troponin is negative and radiographic studies are negative as well. Blood work nonspecific. The patient's states that he is back to his baseline neurologically now and his pressure is now running in the low 100s. He will be admitted for observation. Treatment diagnosis and disposition were discussed with the patient's and sister. Differential Diagnosis Differential Diagnosis: Hypotension, dehydration, anemia, acute kidney injury Lab Data Lab results reviewed: Yes I reviewed the patient's lab results Labs: Lab Results 02/06/25 02/06/25 02/06/25 Range/Units 16:45 17:40 18:35 WBC 5.7 (4.0-11.0) 10^3/uL RBC 4.74 (4.70-6.10) 10^6/uL Hgb 13.3 L (14.0-18.0) g/dL Hct 39.2 L (42.0-54.0) % MCV 82.7 (80.0-94.0) fL MCH 28.1 (25.9-34.0) pg MCHC 33.9 (29.9-35.2) g/dL RDW 14.6 (11.0-15.0) % Plt Count 54 L (150-450) 10^3/uL MPV 8.0 L (9.5-13.5) fL Neut % (Auto) 68.3 (43.0-75.0) % Lymph % (Auto) 16.6 L (20.5-60.0) % Jenkins % (Auto) 13.4 H (1.7-12.0) % Eos % (Auto) 0.2 L (0.9-7.0) % Baso % (Auto) 0.3 (0.2-2.0) % Neut # (Auto) 3.9 (1.4-6.5) 10^3/uL Lymph # (Auto) 1.0 L (1.2-3.8) 10^3/uL Jenkins # (Auto) 0.8 (0.3-0.8) 10^3/uL Eos # (Auto) 0.0 (0.0-0.7) 10^3/uL Baso # (Auto) 0.0 (0.0-0.1) 10^3/uL Abs Immat Gran (auto) 0.07 H (0.00-0.03) 10^3/uL Imm/Tot Granulo (auto) 1.2 H (0.0-0.5) % Puncture Site L radial ABG pH 7.412 (7.350-7.450) ABG pCO2 45.1 H (35.0-45.0) mmHg ABG pO2 86.4 (80.0-100.0) mmHg ABG HCO3 28.7 H (22.0-26.0) mmol/L ABG O2 Saturation 97.6 % ABG Base Excess 4.1 H (-2.0-2.0) mmol/L Phuc Test Positive (POSITIVE) O2 Liters/Min Ra Sodium 139 (136-145) mmol/L Potassium 4.1 (3.5-5.1) mmol/L Chloride 105 (98-107) mmol/L Carbon Dioxide 34.6 H (21.0-32.0) mmol/L Anion Gap 3.5 BUN 18.0 (7.0-18.0) mg/dL Creatinine 1.08 (0.70-1.30) mg/dL Est GFR ( Amer) >60 (>=60 mL/min/1.73m^2) Est GFR (Non-Af Amer) >60 (>=60 mL/min/1.73m^2) BUN/Creatinine Ratio 16.7 Glucose 134 H (74-106) mg/dL Lactate 1.3 (0.4-2.0) mmol/L Calcium 8.0 L (8.5-10.1) mg/dL Magnesium 1.8 (1.8-2.4) mg/dL Total Bilirubin 0.9 (0.2-1.0) mg/dL AST 24 (15-37) U/L ALT 19 (16-63) U/L Alkaline Phosphatase 61 (46-116) U/L Troponin I High Sens 4.7 5.5 (4.0-76.1) pg/mL Total Protein 6.6 (6.4-8.2) g/dL Albumin 2.4 L (3.4-5.0) g/dL Globulin 4.2 g/dL Albumin/Globulin Ratio 0.6 Urine Color (YELLOW) Urine Clarity (CLEAR) Urine pH (5.0-9.0) Ur Specific [place] (1.005-1.025) Urine Protein (NEG/TRACE) mg/dL Urine Glucose (UA) (NEGATIVE) mg/dL Urine Ketones (NEGATIVE) mg/dL Urine Occult Blood (NEGATIVE) Urine Nitrite (NEGATIVE) Urine Bilirubin (NEGATIVE) Urine Urobilinogen (0.2-1.0) EU/dL Ur Leukocyte Esterase (NEGATIVE) Ethanol Quant <3 mg/dL 02/06/25 Range/Units 19:50 WBC (4.0-11.0) 10^3/uL RBC (4.70-6.10) 10^6/uL Hgb (14.0-18.0) g/dL Hct (42.0-54.0) % MCV (80.0-94.0) fL MCH (25.9-34.0) pg MCHC (29.9-35.2) g/dL RDW (11.0-15.0) % Plt Count (150-450) 10^3/uL MPV (9.5-13.5) fL Neut % (Auto) (43.0-75.0) % Lymph % (Auto) (20.5-60.0) % Jenkins % (Auto) (1.7-12.0) % Eos % (Auto) (0.9-7.0) % Baso % (Auto) (0.2-2.0) % Neut # (Auto) (1.4-6.5) 10^3/uL Lymph # (Auto) (1.2-3.8) 10^3/uL Jenkins # (Auto) (0.3-0.8) 10^3/uL Eos # (Auto) (0.0-0.7) 10^3/uL Baso # (Auto) (0.0-0.1) 10^3/uL Abs Immat Gran (auto) (0.00-0.03) 10^3/uL Imm/Tot Granulo (auto) (0.0-0.5) % Puncture Site ABG pH (7.350-7.450) ABG pCO2 (35.0-45.0) mmHg ABG pO2 (80.0-100.0) mmHg ABG HCO3 (22.0-26.0) mmol/L ABG O2 Saturation % ABG Base Excess (-2.0-2.0) mmol/L Phuc Test (POSITIVE) O2 Liters/Min Sodium (136-145) mmol/L Potassium (3.5-5.1) mmol/L Chloride (98-107) mmol/L Carbon Dioxide (21.0-32.0) mmol/L Anion Gap BUN (7.0-18.0) mg/dL Creatinine (0.70-1.30) mg/dL Est GFR ( Amer) (>=60 mL/min/1.73m^2) Est GFR (Non-Af Amer) (>=60 mL/min/1.73m^2) BUN/Creatinine Ratio Glucose (74-106) mg/dL Lactate (0.4-2.0) mmol/L Calcium (8.5-10.1) mg/dL Magnesium (1.8-2.4) mg/dL Total Bilirubin (0.2-1.0) mg/dL AST (15-37) U/L ALT (16-63) U/L Alkaline Phosphatase (46-116) U/L Troponin I High Sens (4.0-76.1) pg/mL Total Protein (6.4-8.2) g/dL Albumin (3.4-5.0) g/dL Globulin g/dL Albumin/Globulin Ratio Urine Color Lt. yellow (YELLOW) Urine Clarity Clear (CLEAR) Urine pH 7.5 (5.0-9.0) Ur Specific [place] 1.015 (1.005-1.025) Urine Protein Negative (NEG/TRACE) mg/dL Urine Glucose (UA) Negative (NEGATIVE) mg/dL Urine Ketones Trace A (NEGATIVE) mg/dL Urine Occult Blood Small A (NEGATIVE) Urine Nitrite Negative (NEGATIVE) Urine Bilirubin Negative (NEGATIVE) Urine Urobilinogen 4.0 A (0.2-1.0) EU/dL Ur Leukocyte Esterase Negative (NEGATIVE) Ethanol Quant mg/dL Imaging Data Chest x-ray: Radiologist's impression: ITS Impressions Head CT 02/06/25 15:53 IMPRESSION: No acute findings. Impression dictated by: Kyler Singleton M.D. 02/06/2025 5:42 PM Dictation Location: [employer] Electronically authenticated by: [id number] Y Date: 02/06/2025 17:42 Chest X-Ray 02/06/25 16:15 IMPRESSION: No acute process. Impression dictated by: Kyler Singleton M.D. 02/06/2025 5:45 PM Dictation Location: [employer] Electronically authenticated by: [id number] Y Date: 02/06/2025 17:45 Discharge Plan Discharge Chief Complaint: Neuro Symptoms/Deficit Clinical Impression: Syncope, Hypotension Patient Disposition: Admitted as Observation Time of Disposition Decision: 20:23 Condition: Good
[2025-02-07] VITALS (14 sets, daily range): BP systolic 110–136; BP diastolic 57–85; PULSE 60–85; TEMP 36.2–36.7; O2SAT 91–96; BMI 10.0
[2025-02-07] MEDS: 0.9 % SODIUM CHLORIDE 1,000 ML 150 ML IV ×2 (00:15→06:37)
[2025-02-07 05:44] LABS: Hematocrit 33.2 % (42.0-54.0); Hemoglobin 11.2 g/dL (14.0-18.0); Immature Granulocytes Abs Auto 0.04 10^3/uL (0.00-0.03); Immature Granulocytes Pct Auto 0.8 % (0.0-0.5); Lymphocytes Absolute Auto 1.7 10^3/uL (1.2-3.8); Mean Corpuscular HGB Conc 33.7 g/dL (29.9-35.2); Mean Corpuscular Hemoglobin 28.1 pg (25.9-34.0); Mean Corpuscular Volume 83.4 fL (80.0-94.0); Platelet Count 35 10^3/uL (150-450); Red Blood Count 3.98 10^6/uL (4.70-6.10); White Blood Count 4.8 10^3/uL (4.0-11.0)
[2025-02-07 05:52] LABS: Anion Gap 7.8; Blood Urea Nitrogen 15.0 mg/dL (7.0-18.0); Calcium 7.8 mg/dL (8.5-10.1); Carbon Dioxide 29.0 mmol/L (21.0-32.0); Chloride 110 mmol/L (98-107); Estimated GFR (African America >60 (>=60 mL/min/1.73m^2); Estimated GFR (Non-African Ame >60 (>=60 mL/min/1.73m^2); Glucose 91 mg/dL (74-106); Magnesium 1.9 mg/dL (1.8-2.4); Potassium 3.8 mmol/L (3.5-5.1); Sodium 143 mmol/L (136-145)
--- NOTE | 2025-02-07 08:00 | ECG_ITS ---
[facility] Test Date: 2025-02-07 Pat Name: ESTELLA JEFFERY Department: Room: 2161 Gender: Male Communications Assistant: : 1965 Requested By: [id number] Order Number: [id number] Reading MD: MARIA G GUPTA Measurements Intervals [place] Rate: 76 P: 42 ID: [id number] QRS: 4 QRSD: 93 T: 4 QT: 388 QTc: 437 Interpretive Statements SINUS RHYTHM LOW QRS VOLTAGE IN PRECORDIAL LEADS [QRS DEFLECTION < 1.0 mV IN CHEST LEADS] Compared to ECG 02/06/2025 17:43:07 No significant changes Electronically Signed On 02-07-2025 16:39:54 EDT by MARIA G GUPTA
--- NOTE | 2025-02-07 08:30 | CM.NOTE ---
Rounds made with Dr. Spivey, discussed status pt will remain OBS status at this time. PT and OT will evaluate pt for discharge planning.
[2025-02-07] MEDS: DIVALPROEX SODIUM 125 MG CAP.DR.SPR 500 MG PO (09:10)
[2025-02-07] MEDS: DULOXETINE HCL 30 MG CAPSULE.DR PO ×2 (09:10→21:11)
[2025-02-07] MEDS: QUETIAPINE FUMARATE 25 MG TABLET 50 MG PO (09:10)
--- NOTE | 2025-02-07 10:36 | SWNOTE1 ---
Important Message from Medicare reviewed and discussed with patient. Pt. verbalized understanding and signed the form. Original given to patient and copy placed in patient?s chart.
--- NOTE | 2025-02-07 10:39 | SWNOTE1 ---
Medicare Outpatient Observation Notice reviewed and discussed with patient's , Kari Alberts. Kari verbalized understanding and signed the form. Original given to patient's and copy placed in patient?s chart.
--- NOTE | 2025-02-07 10:40 | SWNOTE1 ---
TRUDI met with pt's in the hallway. She voiced he is doing alright at home. They assist him with transferring to wheelchair. He has not really been walking, due to blood pressure. SW and pt's spoke about discharge planning. She asked SW about physical therapy and speech therapy coming in to the home. She did think our therapy team went to pt's homes. TRUDI advised that our therapy team does not do HH anymore, but Janice used to. Pt's looked over the HH list from Medicare.gov and she would like SW to try [address] as they have 5 star rating. SW to send referral. SW let her know we can have PT/OT and speech come in and then a nurse will assist with initial assessment as well. Pt's is agreeable to this. Referral sent to [facility] .. Referral included face sheet, ED note, H&P, provider notes, case management report, and PT/OT notes. TRUDI also reached out to Dr. Spivey in regards to speech eval here at hospital during pt's stay.
--- NOTE | 2025-02-07 12:59 | SWNOTE1 ---
Therapy did have recommendation of SNF. Pt's has voiced she does not want him to go to intermediate, she only wants home health services coming in to the home. Benefits of going skilled to facility have been explained to , but at this time pt's is refusing SNF.
--- NOTE | 2025-02-07 13:06 | PM.HP ---
HPI H&P: HPI History of Present Illness Chief complaint: UNRESPONSIVE, SYNCOPE, HYPOTENSION Narrative: Mr. Alberts is a 59-year-old gentleman with a known history of traumatic brain injury which have left him with a cognitive and functional disability. Patient apparently passed out for a few seconds at home yesterday and was brought to the emergency room department. No witnessed convulsion. No fever or chills. Patient was back to baseline state by the time he arrived to the emergency room. His is at the bedside providing information. denied patient having any recent unusual symptoms such as fever, chills, vomiting, diarrhea, dysuria or hematuria Opioid HPI Opioid Management Most Recent Pain and Opioid Data: Last Pain Assessment 02/06/25, 22:00 Last ORT Total Score 0 02/06/25, 22:00 Last ORT Risk Category Low Risk 02/06/25, 22:00 Ur Phencyclidine Scrn, (NEGATIVE) Negative 08/10/24, 01:35 Review of Systems ROS Status of ROS 10 or more systems reviewed and unremarkable except as noted in history and below [facility] Medical History (Updated 02/07/25 @ 13:08 by Fallon Spivey MD) POTS (postural orthostatic tachycardia syndrome) ?G90.A - Postural orthostatic tachycardia syndrome [POTS] (ICD-10) TBI (traumatic brain injury) ?S06.9XAA - Unspecified intracranial injury with loss of consciousness status unknown, initial encounter (ICD-10) Dementia ?F03.90 - Unspecified dementia, unspecified severity, without behavioral disturbance, psychotic disturbance, mood disturbance, and anxiety (ICD-10) Elevated TSH ?R79.89 - Other specified abnormal findings of blood chemistry (ICD-10) STEVO (acute kidney injury) ?N17.9 - Acute kidney failure, unspecified (ICD-10) Delirium ?R41.0 - Disorientation, unspecified (ICD-10) Altered mental status ?R41.82 - Altered mental status, unspecified (ICD-10) Hallucinations ?R44.3 - Hallucinations, unspecified (ICD-10) Acute delirium ?R41.0 - Disorientation, unspecified (ICD-10) Altered mental status ?R41.82 - Altered mental status, unspecified (ICD-10) Combative behavior ?R46.89 - Other symptoms and signs involving appearance and behavior (ICD-10) Dementia without behavioral disturbance ?F03.90 - Unspecified dementia, unspecified severity, without behavioral disturbance, psychotic disturbance, mood disturbance, and anxiety (ICD-10) Altered mental status ?R41.82 - Altered mental status, unspecified (ICD-10) GERD (gastroesophageal reflux disease) ?K21.9 - Gastro-esophageal reflux disease without esophagitis (ICD-10) Surgical History History of colostomy reversal ?Z98.890 - Other specified postprocedural states (ICD-10) H/O hernia repair ?Z98.890 - Other specified postprocedural states (ICD-10) ?Z87.19 - Personal history of other diseases of the digestive system (ICD-10) Family History Sister Family history of cancer Family history of diabetes mellitus Family history of hypertension Family history of stroke Mother Family history of diabetes mellitus Family history of hypertension Social History (Updated 02/07/25 @ 06:39 by Nuris Armijo RN) Within the past year, how often did you have a drink containing alcohol: never Within the past year, how often did you have six or more drinks on one occasion: never Score interpretation: A score less than 4 is consistent with normal alcohol consumption. Smoking status: Never smoker Non-prescribed substance use: denies use Previous occupational history: unemployed Highest level of school completed/degree received: Bachelor's degree Are you now , , , , never or living with a partner: Little interest or pleasure in doing things: not at all Feeling down, depressed, or hopeless: not at all Do you think of yourself as: straight/heterosexual Gender Identity: male Meds Home Medications and Allergies Home Medications ?Medication ?Instructions ?Recorded ?Confirmed ?Type divalproex 125 mg capsule,delayed 500 mg PO Q12H 08/09/24 02/06/25 History release sprinkle quetiapine 50 mg tablet 50 mg PO BID 08/09/24 02/07/25 History donepezil 10 mg tablet 10 mg PO QHS #30 tabs 08/11/24 02/06/25 Rx melatonin 10 mg capsule 10 mg PO DAILY #30 caps 08/11/24 02/06/25 Rx quetiapine 200 mg tablet (Seroquel) 200 mg PO .qhs #30 tabs 08/11/24 02/06/25 Rx midodrine 2.5 mg tablet 2.5 mg PO BID 02/06/25 02/07/25 History pantoprazole 40 mg tablet,delayed 40 mg PO .acb 02/06/25 02/07/25 History release duloxetine 30 mg capsule,delayed 30 mg PO BID 02/07/25 02/07/25 History release Allergies Allergy/AdvReac Type Severity Reaction Status Date / Time No Known Drug Allergies Allergy Verified 02/06/25 15:52 Exam Narrative Exam Narrative: Patient is lying in bed. Able to answer simple questions. Able to lift up his arms against gravity. Able to move his legs actively. Significant muscle wasting involving his lower extremities. Chest is clear, heart is regular. Abdomen soft, nontender. Cognition is impaired. Unable to engage in complex conversation. His is providing information and engaging. Constitutional Vital Signs, click to edit/add: Last Vital Signs Temp 98.0 F 02/07/25 11:59 Pulse 60 02/07/25 11:59 Resp 16 02/07/25 11:59 BP 110/57 02/07/25 11:59 Pulse Ox 95 02/07/25 11:59 O2 Del Method Room Air 02/07/25 11:59 Results Labs Labs: Short CBC 02/06/25 02/07/25 Range/Units 16:45 04:44 WBC 5.7 4.8 (4.0-11.0) 10^3/uL Hgb 13.3 L 11.2 L (14.0-18.0) g/dL Hct 39.2 L 33.2 L (42.0-54.0) % Plt Count 54 L 35 L (150-450) 10^3/uL BMP 02/06/25 02/07/25 16:45 04:44 Sodium 139 143 Potassium 4.1 3.8 Chloride 105 110 H Carbon Dioxide 34.6 H 29.0 BUN 18.0 15.0 Creatinine 1.08 0.66 L Glucose 134 H 91 Calcium 8.0 L 7.8 L Liver Function 02/06/25 Range/Units 16:45 Total Bilirubin 0.9 (0.2-1.0) mg/dL AST 24 (15-37) U/L ALT 19 (16-63) U/L Alkaline Phosphatase 61 (46-116) U/L Albumin 2.4 L (3.4-5.0) g/dL Urine 02/06/25 Range/Units 19:50 Urine Color Lt. yellow (YELLOW) Urine Clarity Clear (CLEAR) Urine pH 7.5 (5.0-9.0) Ur Specific [place] 1.015 (1.005-1.025) Urine Protein Negative (NEG/TRACE) mg/dL Urine Glucose (UA) Negative (NEGATIVE) mg/dL ABG ABG results: 02/06/25 17:40 ABG pH 7.412 ABG pCO2 45.1 H ABG pO2 86.4 ABG HCO3 28.7 H ABG O2 Saturation 97.6 ABG Base Excess 4.1 H Assessment and Plan Assessment and Plan (1) Syncope: (2) Muscle wasting: (3) Moderate protein-calorie malnutrition: (4) Anemia: (5) Thrombocytopenia: Plan Syncopal episode for few seconds No convulsion witnessed by his , possibility of nonconvulsive seizure. Rule out cardiac dysrhythmia CAT scan of the head is negative for acute intracranial process Check valproic acid level. Monitor patient for 24 to 48 hours Thrombocytopenia Chronic according to the . stated that patient was seen by specialist before and was not given a reason for his low platelets. Avoid anticoagulation. No clinical evidence of a bleed at this time. History of traumatic brain injury which had left patient with a cognitive and functional disability. stated that patient is near baseline Anemia, no evidence of acute blood loss. Patient will likely require to have anemia workup to be done in the outpatient setting to be handled by PCP in collaboration with other needed outpatient providers. This may include but not limited to EGD, colonoscopy, referral to see hematology and other needed age-appropriate cancer screening. Moderate protein calorie malnutrition. Muscle wasting in lower extremities due to inactivity. Recommend patient to take protein supplementation twice to 3 times a day. Chronic medical conditions not listed above, incidental findings seen on labs and imaging. These would need to be addressed. Could be addressed when time and condition are appropriate. Could be addressed in the outpatient setting by PCP collaboration with other needed outpatient providers.
--- NOTE | 2025-02-07 13:33 | SWNOTE1 ---
TRUDI received a call from Skyler at [address] services and they are able to accept. SW to keep MED updated on discharge. SW updated nursing and .
[2025-02-07] MEDS: DIVALPROEX SODIUM 125 MG CAP.DR.SPR 250 MG PO (14:33)
--- NOTE | 2025-02-07 20:57 | CA_ITS ---
Patient Name: ESTELLA JEFFERY MR#: [id number] : 1965 Exam Date: 02/07/2025 Ordering Doctor: MICHELLE BARRETT ECHOCARDIOGRAM REPORT PROCEDURE: CA ECHO DOPPLER COMPLETE INDICATIONS: Syncope, POTS, dementia COMPARISON: None. DESCRIPTION: COMPLETE ECHOCARDIOGRAM Real-time transthoracic echocardiography with 2D, M-mode, spectral and color flow Doppler performed. QUALITY: Technical quality was good. LEFT VENTRICLE: Normal chamber size. Normal left ventricular wall thickness. LV EF: Global left ventricular systolic function is normal; visually estimated ejection fraction is 60 to 65%. No significant wall motion abnormalities. DIASTOLIC: Normal diastolic function. ATRIAL SEPTUM: Inadequately seen. LEFT ATRIUM: Normal chamber size. RIGHT ATRIUM: Normal chamber size. RIGHT VENTRICLE: Normal chamber size. Normal right ventricular systolic function. TRICUSPID VALVE: Normal mobility and thickness. No stenosis with mild regurgitation. No evidence of pulmonary hypertension. RVSP 32 mmHg MITRAL VALVE: Normal mobility and thickness. No evidence of mitral valve stenosis. There is no mitral annular calcification. No mitral regurgitation. AORTIC VALVE: Normal aortic valve. No visible sclerosis. Normal leaflet mobility. No evidence of aortic valve stenosis. No aortic regurgitation. AORTIC ROOT: Normal diameter and appearance. Ascending aorta is normal in size. PULMONIC VALVE: Normal thickness and mobility. No stenosis. No regurgitation. PERICARDIUM: No evidence of pericardial effusion. IVC: Not well visualized. CONCLUSION: 1. Global left ventricular systolic function is normal; visually estimated ejection fraction is 60 to 65% 2. Normal right ventricular size and systolic function 3. Normal diastolic function 4. The left atrium is normal in size 5. Mild tricuspid regurgitation Adult Echocardiography Procedure Report Left Ventricle LVEDD (3.7 - 5.6 cm): 4.46 cm LVESD (2.2 - 4.0 cm): 3.06 cm LVIVS thickness (0.6 - 1.2 cm): 1.01 cm LVPW thickness (0.5 - 1.0 cm): 0.89 cm e': 0.12 m/s E - e': 4.01 LVOT Max Gradient: 2.25 mm[Hg] LVOT Area (cm2): 0.75 m/s Peak Velocity (LVOT): 0.75 m/s Mean Velocity (LVOT): 0.51 m/s LVOT Diameter 2.13 cm Left Atrium LA Volume Index (2D A2C): 18.62 ml/m2 Left Atrium Systolic Dimension: 4.04 cm Mitral Valve MV E to A Ratio: 1 Mitral Valve A-Wave Peak Velocity: 0.46 m/s Mitral Valve E-Wave Peak Velocity: 0.46 m/s Right Ventricle Aorta AO Root Diam: 3.24 cm Ascending Ao Diam: 2.34 cm Aortic Valve AoV Area (Peak Rafael): 2.91 cm2, 2.91 cm2 AoV Area (VTI): 3.28 cm2, 3.28 cm2 Peak Velocity(Antegrade Flow): 0.91 m/s Peak Gradient(Antegrade Flow): 3.33 mm[Hg] Mean Velocity(Antegrade Flow): 0.62 m/s Mean Gradient(Antegrade Flow): 1.76 mm[Hg] Velocity Time Integral: 18.01 cm Tricuspid Valve Peak Velocity (Regurgitant Flow): 2.68 m/s Pulmonic Valve Peak Velocity: 0.72 m/s Peak Gradient: 2.10 mm[Hg] Right Atrium Dictated by: Saeed Cordero M.D. on 02/07/2025 at 16:18 Approved by: Saeed Cordero M.D. on 02/07/2025 at 16:20
[2025-02-07] MEDS: DONEPEZIL HCL 10 MG TABLET PO (21:11)
[2025-02-07] MEDS: QUETIAPINE FUMARATE 100 MG TABLET 200 MG PO (21:11)
[2025-02-08] VITALS (9 sets, daily range): BP systolic 114–148; BP diastolic 67–84; PULSE 58–87; TEMP 36.3–36.5; O2SAT 94–96
[2025-02-08 05:35] LABS: Hematocrit 37.1 % (42.0-54.0); Hemoglobin 12.2 g/dL (14.0-18.0); Mean Corpuscular HGB Conc 32.9 g/dL (29.9-35.2); Mean Corpuscular Hemoglobin 27.6 pg (25.9-34.0); Mean Corpuscular Volume 83.9 fL (80.0-94.0); Platelet Count 40 10^3/uL (150-450); Red Blood Count 4.42 10^6/uL (4.70-6.10); White Blood Count 4.4 10^3/uL (4.0-11.0)
[2025-02-08 05:56] LABS: Alanine Aminotransferase 12 U/L (16-63); Albumin Globulin Ratio 0.5; Albumin Level 1.9 g/dL (3.4-5.0); Alkaline Phosphatase 53 U/L (46-116); Anion Gap 7.3; Aspartate Amino Transferase 14 U/L (15-37); Blood Urea Nitrogen 13.0 mg/dL (7.0-18.0); Calcium 8.3 mg/dL (8.5-10.1); Carbon Dioxide 32.5 mmol/L (21.0-32.0); Chloride 109 mmol/L (98-107); Creatine Kinase 37 U/L (39-308); Estimated GFR (African America >60 (>=60 mL/min/1.73m^2); Estimated GFR (Non-African Ame >60 (>=60 mL/min/1.73m^2); Globulin 4.0 g/dL; Glucose 99 mg/dL (74-106); Potassium 3.8 mmol/L (3.5-5.1); Sodium 145 mmol/L (136-145); Total Protein 5.9 g/dL (6.4-8.2)
[2025-02-08] MEDS: PANTOPRAZOLE SODIUM 40 MG TABLET.DR PO (05:57)
[2025-02-08 08:13] LABS: Folate 5.60 ng/mL (8.60-58.90)
[2025-02-08] MEDS: DULOXETINE HCL 30 MG CAPSULE.DR PO (08:44)
[2025-02-08] MEDS: QUETIAPINE FUMARATE 25 MG TABLET 50 MG PO (08:44)
--- NOTE | 2025-02-08 08:55 | CM.NOTE ---
Rounds made with Dr. Spivey, discussed with pt's discharge to home today. Dr. Spivey discussed with PT to work with pt prior to discharge. If pt at baseline may discharge to home. Pt will have CBC prior to f/u with Dr. Cruz for low platelets. verbalizes understanding. Pt will f/u with PCP and pt already is scheduled to see his psychiatrist. Ewa will schedule PCP appt.
--- NOTE | 2025-02-08 10:08 | PT.DAILY ---
Physical Therapy Daily Note PT Daily Note/Assess Start: 02/08/25 09:57 Freq: Status: Active Protocol: Document 02/08/25 09:58 AARTI (Rec: 02/08/25 10:08 AARTI [id number]) Physical Therapy Daily Note/Assessment Time In/Time Out Time In 09:30 Time Out 09:50 Pain In Pain N/A Pain Out Pain N/A Subjective Subjective Pt sitting in BS chair upon arrival. and sisters present - agreeable to PT. Therapeutic Activity Time Therapeutic Activity 10 Minutes (minutes) Therapeutic Activity 1 Units Therapeutic Activity Treatment Chair Transfer Maximum Assist,2 Person Assist Ability Therapeutic Activity Sit>stand to RW MaxA+2. Once standing pt stable with Comments ModA with clonus muscle spasms noticed in bilat LEs. Pt has extreme difficulty following commands with step sequence for side stepping to sit EOB. pt requires muscle tapping and LE guidance. motivates pt throughout transfer. Pt sits EOB unsupported - 4 min without LOB. Sit>stand again to RW with MaxA+2 with pivot back to BS chair. Cont to need assistance to guide LE and muscle tapping for activation to initiate stepping. Pt remains in BS chair with chair alarm set upon completion. Family present. Total Physical Therapy Time Total Therapy 10 Minutes Total Physical 1 Therapy Units Summary Daily Note Summary After speaking in depth with pts - she feels comfortable taking pt home in this condition. They have ordered a chair/paige combo lift for home use, remodeled bathrooms, and have around the clock support from family. Pt could benefit from SNF to regain strength but with his poor cognition - little carry over would be expected. 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 Appears to be below his baseline and would recommend [facility] if family is open to it.
--- NOTE | 2025-02-08 13:15 | P.DS_ITS ---
DS: Providers Provider Date of admission: 02/06/25 22:00 Primary care physician: Jae Cruz MD Consults: 02/07/25 Occupational Therapy Eval and Treat Routine Reason for consultation: weakness Physical Therapy Eval and Treat Routine Reason for consultation: weakness DS: Diagnosis Discharge Diagnosis (1) Syncope: (2) Muscle wasting: (3) Moderate protein-calorie malnutrition: (4) Anemia: (5) Thrombocytopenia: Plan As listed above and others that are not listed DS: Summary Hospital Course Hospital Course: Mr. Alberts is a 59-year-old gentleman with a known diagnosis of a traumatic brain injury which has left him with a significant cognitive and functional disability. Patient passed out for less than a minute at home and was brought to the emergency room. Syncopal episode for few seconds No convulsion witnessed by his , possibility of nonconvulsive seizure. Rule out cardiac dysrhythmia CAT scan of the head is negative for acute intracranial process Check valproic acid level. Valproic acid is not toxic No cardiac dysrhythmia over the last 36 -48 hours. Echocardiogram does not show any valvular disease or cardiomyopathy that may put him at risk having dysrhythmia or syncope. Patient is back to baseline state which is consistent with advanced cognitive and functional disability. Due to my clinical suspicion of patient has had nonconvulsive seizure or having dysrhythmia causing him to pass out I would order 30-day Holter monitor I would also start the patient on Trileptal for seizure suppression and also for mood stabilization given the fact that will take him off Depakote due to severe thrombocytopenia. Trileptal has been reported to cause thrombocytopenia on rare occasion. Much less possibility as with depokate Thrombocytopenia Chronic according to the . stated that patient was seen by specialist before and was not given a reason for his low platelets. Avoid anticoagulation. No clinical evidence of a bleed at this time. I suspect that his thrombocytopenia is side effect from Depokate. My recommendation is to stop depokate. Instead I would start him on Trileptal. Patient has an appointment with his psychiatrist within the next 10 days as reported by his . Psychiatrist will decide if anything else could be used to control his mood and aggressive behaviors. Furthermore, his folate level is low which may be contributing to his thrombocytopenia. I would start patient on folate supplementation. In addition I would recommend the patient to have repeat CBC in 2 weeks to monitor his platelets level. If he continues to have thrombocytopenia I would recommend an outpatient referral to see hematology. (As per , the patient was seen by platelets specialist in [place] in recent past. Platelets specialist told the that he does not know why his platelets are low ) History of traumatic brain injury which had left patient with quite significant cognitive and functional disability. stated that patient is near baseline Anemia, no evidence of acute blood loss. Patient will likely require to have anemia workup to be done in the outpatient setting to be handled by PCP in collaboration with other needed outpatient providers. This may include but not limited to EGD, colonoscopy, referral to see hematology and other needed age-appropriate cancer screening. Moderate protein calorie malnutrition. Muscle wasting in lower extremities due to inactivity. Recommend patient to take protein supplementation twice to 3 times a day. Chronic medical conditions not listed above, incidental findings seen on labs and imaging. These would need to be addressed. Could be addressed when time and condition are appropriate. Could be addressed in the outpatient setting by PCP collaboration with other needed outpatient providers. Patient has multiple complex medical issues as listed above and others that are not listed. All appear to be stable. I do not have any clear or strong clinical justification to extend inpatient hospitalization. Patient however will require close and frequent monitoring as well as additional work-up, investigation and therapeutic intervention that could take place from this point on post discharge. That is to prevent relapse, decompensation, rehospitalization and other medical implications. I instructed patient to ask her primary care doctor to obtain [facility] record entirely to address abnormalities seen on labs and imaging that I have and have not addressed during this hospitalization, follow-up on pending blood work, imaging and pathology is if available and to follow-up on needed medical care in the outpatient setting. Time Spent with Patient Time attestation: Total time spent providing and/or coordinating discharge services: Time spent: greater than 30 minutes Exam Constitutional Vital Signs, click to edit/add: Last Vital Signs Temp 97.7 F 02/08/25 11:51 Pulse 87 02/08/25 11:51 Resp 16 02/08/25 11:51 BP 114/67 02/08/25 11:51 Pulse Ox 96 02/08/25 11:51 O2 Del Method Room Air 02/08/25 11:51 DS: Data Data Completed and Pending Labs on day of discharge: Labs from last 24 hours 02/08/25 02/07/25 05:04 04:44 WBC 4.4 RBC 4.42 L Hgb 12.2 L Hct 37.1 L MCV 83.9 MCH 27.6 MCHC 32.9 RDW 14.9 Plt Count 40 L MPV 8.5 L Sodium 145 Potassium 3.8 Chloride 109 H Carbon Dioxide 32.5 H Anion Gap 7.3 BUN 13.0 Creatinine 0.71 Est GFR ( Amer) >60 Est GFR (Non-Af Amer) >60 BUN/Creatinine Ratio 18.3 Glucose 99 Calcium 8.3 L Total Bilirubin 0.6 AST 14 L ALT 12 L Alkaline Phosphatase 53 Total Creatine Kinase 37 L Total Protein 5.9 L Albumin 1.9 L Globulin 4.0 Albumin/Globulin Ratio 0.5 Folate 5.60 L Valproic Acid 73.3 Discharge Plan Discharge Disposition: Home Health Service Condition: Good Discharge Medications: New sennosides-docusate sodium [Senna Plus] 8.6-50 mg Tablet 1 tab PO QD PRN (Reason: Constipation) Qty: 30 1RF folic acid 1 mg Tablet 1 mg PO QD Qty: 60 1RF oxcarbazepine [Trileptal] 150 mg tablet 150 mg PO DAILY Qty: 30 2RF Continued pantoprazole 40 mg tablet,delayed release (DR/EC) 40 mg PO .acb midodrine 2.5 mg tablet 2.5 mg PO BID duloxetine 30 mg Capsule,Delayed Release(Dr/Ec) 30 mg PO BID quetiapine 50 mg tablet 50 mg PO BID Rx Instructions: 50 mg in morning and 50 mg after lunch donepezil 10 mg Tablet 10 mg PO QHS Qty: 30 11RF quetiapine [Seroquel] 200 mg tablet 200 mg PO .qhs Qty: 30 11RF melatonin 10 mg capsule 10 mg PO DAILY Qty: 30 11RF Held divalproex 125 mg capsule, delayed rel sprinkle 500 mg PO Q12H Hold Instructions: Resume on 02/15/25. Do not take this medicine until you see your psychiatrist. Print Language: Frisian Activity Restrictions/Additional Instructions: I may not have addressed or treated all of your medical illnesses or the abnormal blood work or imaging studies during this hospitalization. Please ask your primary care provider to obtain [facility] records entirely to follow up on all of the abnormal physical, laboratory, and imaging findings that I have not addressed. Please return back to the emergency room or seek medical attention if your symptoms worsen or return. Please make sure he follows up with his psychiatrist next week as scheduled and let him know that I recommended to hold taking Depakote due to low platelets I would recommend that your primary care doctor with arrange to order blood test called CBC in 1 to 2 weeks to monitor his platelet count. Please pass the information to Dr. Cruz. 30 days Holter monitor will be arranged for him to wear for 30 days Noé has some microscopic blood in the urine. I would recommend for him to have a repeat urine test UA at primary care doctors office in 2 weeks to make sure that he does not have any microscopic blood any further. If he continues to have microscopic blood in the urine then I would recommend referral to see urologist (kidney and bladder specialist ) Discharging you from [facility] does not mean that your medical care ends here and now. You may still need additional monitoring, work up, investigation, and treatment plan to be handled from this point on by out patient providers including your primary care provider and specialists. For any medication question, please contact your retail pharmacist or your primary care provider. Thank you. Sales Broker/Kennel Hand Instructions: Discharge with [facility] Home Health services. They will contact to schedule time to do visit. Phone number is [phone]. Forms: Portal Instructions Follow Up Appointments: Dr.Hoy Mei Feb.12 @9:30 #[phone]
--- NOTE | 2025-02-08 13:23 | SWNOTE1 ---
Pt is stable for discharge today. Pt's has voiced she does want him to come home and do the home health, does not want pt to go to nursing facility. Pt is all set with [address] services. PT/OT/ST and nurse. TRUDI did advise pt's that they will call her to schedule times to see pt in the home. Pt's voiced understanding. TRUDI faxed dc med rec, dc summary, CRF, updated PT/OT notes, and H&P to [address]
[2025-02-08] MEDS: FOLIC ACID 1 MG TABLET PO (14:42)
[2025-02-09 04:07] LABS: Vitamin B12 >2000 pg/mL (232-1245)
--- NOTE | 2025-02-12 14:23 | CM.DCFOLLOWU ---
1st attempt 02/12/25, no answer
--- NOTE | 2025-02-13 14:00 | CM.DCFOLLOWU ---
Person spoke with:Kari lundberg's How are you feeling? he is doing well How is your pain?none Did you understand your discharge instructions?yes Do you have any questions about your discharge instructions?no Were you given any prescriptions at discharge?yes Were you able to get your prescriptions filled?yes Do you understand how to take your medications as ordered?yes Do you have any questions about your follow up appointment and do you plan to keep your follow up appointment? no questions, had to move follow up visit to 02/14/25 in the afternoon Is there anything else that you would like to discuss?no Questions/Comments/Concerns/Other:none
== END 2025-02-08 16:11 | disposition home health service (06) ==
LOC: ER 21:48 → MS 22:20
PROVIDERS: Emergency Medicine; Admitting Provider Internal Medicine; Emergency Provider Emergency Medicine; PCP Family Medicine; Visit Provider Internal Medicine
DX: R55 Syncope and collapse (principal); I95.9 Hypotension, unspecified; Z87.820 Personal history of traumatic brain injury; E44.0 Moderate protein-calorie malnutrition; M62.50 Muscle wasting and atrophy, not elsewhere classified, unspecified site; D64.9 Anemia, unspecified; D69.6 Thrombocytopenia, unspecified; R41.9 Unspecified symptoms and signs involving cognitive functions and awareness; I07.1 Rheumatic tricuspid insufficiency; Z68.43 Body mass index [BMI] 50.0-59.9, adult; Z79.899 Other long term (current) drug therapy
CPT/HCPCS: 36415; 36600; 70450; 71045; 80048; 80053; 80164; 80320; 81001; 82550; 82607; 82746; 82805; 83605; 83735; 84484; 85025; 85027; 93005; 93270; 93306; 96360; 96361; 97162; 97165; 97530; 97535; 99285; G0378

== ENCOUNTER 2025-02-19 08:01 | Emergency (ER) | payer OTHER, SELFPAY ==
[2025-02-19] VITALS (15 sets, daily range): BP systolic 109–122; BP diastolic 70–84; PULSE 80–109; TEMP 36.3; O2SAT 92–100; BMI 22.8
--- NOTE | 2025-02-19 08:08 | ECG_ITS ---
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
--- NOTE | 2025-02-19 08:08 | CT_ITS ---
[facility] [place] [id number] Patient Name: ESTELLA JEFFERY MRN: [id number] date: 1965 Sex: M Assigned Patient Location: ED.MAIN Current Patient Location: ED.MAIN Accession/Order Number: [id number] Exam Date: 02/19/2025 08:30 Report Date: 02/19/2025 09:08 At the request of: TIMOTHY SANFORD DO Procedure: CT head/brain wo con CT head/brain wo con 02/19/2025 8:38 AM SIGNS AND SYMPTOMS: syncope vs seizure TECHNIQUE:Multi-detector CT axial slices of the brain were obtained without IV contrast. CT was performed with one or more of the following dose reduction techniques: Automated exposure control, adjustment of the mA and/or kV according to patient size, or use of iterative reconstruction technique. COMPARISON: 02/06/2025 FINDINGS: There is no shift of the midline structures, acute intracranial bleeding, mass effects, or evidence of acute ischemia. There is age-related cortical atrophy with periventricular white matter hypoattenuation. The ventricular system is normal in size. The brainstem and the cerebellum are unremarkable. The visualized intraorbital contents, the visualized paranasal sinuses, and the infratemporal soft tissues show no acute abnormality. The osseous structures in the skull base and the calvarium show no abnormality. CT/CT head/brain wo con IMPRESSION: No acute intracranial pathology. Similar chronic age-related neurodegenerative changes are noted as above. Impression dictated by: Arnold Serna M.D. 02/19/2025 9:08 AM Dictation Location: [place] [address] Electronically authenticated by: [id number] Y Date: 02/19/2025 09:08
--- NOTE | 2025-02-19 08:08 | XR_ITS ---
[facility] [place] [id number] Patient Name: ESTELLA JEFFERY MRN: [id number] date: 1965 Sex: M Assigned Patient Location: ER Current Patient Location: ED.MAIN Accession/Order Number: [id number] Exam Date: 02/19/2025 08:30 Report Date: 02/19/2025 09:02 At the request of: TIMOTHY SANFORD DO Procedure: XR chest 1V XR chest 1V 02/19/2025 8:38 AM SIGNS AND SYMPTOMS: ^cough PROTOCOL: Frontal radiograph of the chest COMPARISON: 02/06/2025 FINDINGS: The trachea is midline. The heart and mediastinal structures are within normal limits. The lung parenchyma is clear. The bony thorax is intact. Degenerative changes are noted in the thoracic spine. XR/XR chest 1V IMPRESSION: No acute cardiopulmonary pathology. Impression dictated by: Arnold Serna M.D. 02/19/2025 9:02 AM Dictation Location: [employer] Electronically authenticated by: [id number] Y Date: 02/19/2025 09:02
--- OUTSIDE RECORDS SUMMARY | 2025-02-19 08:16 | XMS_ITS | CCD ---
Author Organization [facility] [place] Care Team Providers Care Scourer Name Role Phone NAYA IZAGUIRRE Admitting Unavailable JAE LOPEZ Primary Care Unavailable JAE LOPEZ Referring Unavailable NAYA IZAGUIRRE Attending Unavailable CO Procedure Practitioner Unavailab NAYA Wolf Surgeon Unavailable JAE LOPEZ Primary Care Unavailable SELF, REFERRED Referring Unavailable WILLAM IZAGUIRREIN Attending Unavailable ZINA JIASULTANAIN Admitting Unavailable CO Procedure Practitioner Unavailab WILLAM WolfIN Surgeon Unavailable [...] DR MILLER Attending Unavailable HOY ., DR MLILER Admitting Unavailable HOY ., DR MILLER Primary Care Unavailable HOY ., DR MILLER Consulting Unavailable Unavailable Primary Care Provider UnavailJae Easton Primary Care Physician [phone] MD Danni Graham Attending Provider [phone] MD Jae Lopez Primary Care Provider [phone] MAITE MORRIS Attending Unavailable JAE LOPEZ Primary Care Unavailable Danni Graham Admitting Unavailable Danni Graham Attending Unavailable Danni Graham Referring Unavailable Jae Lopez MD Primary Care Provider [phone] Danni Graham Attending Unavailable Danni Graham Attending Unavailable Jae Lopez Referring Unavailable Danni Graham Attending Unavailable Lue, Danni M. Admitting Unavailable Lue, Danni M. Referring Unavailable Lue, Danni M. Attending Unavailable Lue, Danni M Admitting Unavailable Lue, Danni M Attending Unavailable Hoy, Jae M Primary Care Unavailable Elliott Lee Admitting Unavailab Elliott Huber Attending Unavailab le Dilany, Jae M Primary Care Unavailable Jae Lopez MD Primary Care Provider [phone] FIDELINA FISHER Attending Unavailable HOY, JAE [...] Unavailable HOY, JAE M Primary Care Unavailable SILVINA HEATHANNA Chidi Admitting Unavailable ALF, NICHOL M Attending Unavailable HOY, JAE M Referring Unavailable HOY, JAE M Primary Care Unavailable JESSICA JOHNSON I Consulting Unavailable MILTON CHAMBERS Consulting Unavailable LAILA MAY Consulting Unavailable MINA FRANKS Consulting Unavailable SONYA ASTUDILLO Consulting Unavailable KELLEY SOFIA Consulting Unavailable BETO VILLAR Consulting Unavailable ALSARMANDOKA, MARLENEAMAD S Referring Unavailable HOY, JAE M Primary [...] MEDELLIN Consulting Unavailable MERCEDES TAVAREZ Consulting Unavailable [facility] Consulting Unavailab BAILEY Tomlin Attending Unavailable Allergies Allergy Classification Reported Allergen(s) Allergy Type Date of Onset Reaction(s) Facility (1 source) 60140,00 Drug allergy (disorder) 9 [facility] Repository (9 sources) diphenhydrAMINE ; Translations: [DIPHENHYDRAMIN E] Drug Allergy 5 Abnormal Behavior [employer] Work Phone: (1 source) No Known Medication Allergies; Translations: [No Known Medication Allergies] Propensity to adverse reactions (disorder) [facility] Repository (6 sources) LORazepam; Translations: [LORAZEPAM] Drug Allergy 5 Abnormal Behavior [employer] Medications Current Medications Medication Drug Class(es) Dates [...] Active docusate sodium 50 mg / sennosides, retirement [...] / neomycin 3.5 mg/ml / polymyxin b 75961 unt/ml otic suspension (3 sources) Aminoglycoside Antibacterial, [...] hydrochloride 5 mg oral tablet (18 sources) J-omwbpz-C-aspartate Receptor Antagonist Start: 11-17-2022 End: 07-30-2024 take [...] Onset: 5 Unclassified (1 source) Trauma Onset: 5 Unclassified (1 source) Unspecified dementia, unspecified severity, with other behavioral disturbance; Translations: [Unspecified dementia, unspecified severity, with other behavioral disturbance] Onset: 5 Unclassified (1 source) Autogenerated Problem Onset: 5 12-18-2024 Unclassified (2 sources) Med Management; Translations: [Med Management] Onset: 5 Past or Other Problems Problem [...] Test Name Value Interpretation Reference Range Facility 37on 02-15-2025 37 Medication Instructions: Stop Depakote due to thrombocytopenia, leukopenia. Continue with plan for follow up labs at [facility] in 1-2 weeks Stop Donepezil due to bradycardia Stop Seroquel due to risk of hypotension Stop Oxcarbazepine due to risk of side effects (blood dyscrasias) similar to Depakote Continue Cymbalta 60 mg daily for mood, anxiety Start Risperidone 0.5 mg twice daily for behaviors related to dementia. Start Trazodone 50 mg nightly for insomnia. Medical Workup: Continue to follow with Neurology, Cardiology. Will continue with plan for follow up labs to be obtained by [facility] in 1-2 weeks. Sisters/Spouse notified to bring most recent labwork to patient's next visit for review. Will monitor labs as indicated for monitoring of thrombocytopenia, leukopenia most likely related to Depakote Return to Clinic in 6 Weeks. If you have questions/concerns/n eed refills call [phone] M-F 8:30am-4:30pm, to speak with my autopsy assistant. You can also message me through [facility]. After hours or on holidays and weekends, you can call the hospital multiple cut off saw operator at [phone] to talk with the on-call physician for emergencies. For a crisis or suicidal ideation you can call Crisis [facility] Services ([phone]) or 120. You may also call 911 or the local emergency department with any thoughts of , suicidal ideations, homicidal ideations, concern that your mind is playing tricks on you (hallucinations, paranoia, etc), or with any life threatening emergency [facility] Office Visiton 02-15-2025 Follow-up visit [id number] Estella Jeffery 1965 M Date Provider Department Center 02/15/2025 [facility]AILEY TOM [facility] Nusrat Heal No family history on file Level of Service:68834 CO PSYCHIATRIC DIAGNOSTIC EVAL W/MEDICAL SERVICES (GC) Reason for Visit and Comments: Med Management [[id number]] [facility] CNCOon 10-31-2024 CNCO Letter Text Normal [facility] jennifer Folcroft BASIC METABOLIC PANELon 05-0 Anion gap [Moles/Vol] 6 mmol/L Normal 5-15 [facility] Comment on above: Performed By: #### 3 4148-7, 41409-4, BMP, CBC #### [facility] ([id number]) [address], [address] [place] [address] Calcium [Mass/Vol] 8.2 mg/dL Low 8.5-10.5 [facility] Comment on above: Performed By: #### 3 4148-7, 80153-8, BMP, CBC #### [facility] ([id number]) [address], [address] [place] [address] Chloride [Moles/Vol] 104 mmol/L Normal 98-109 [facility] Comment on above: Performed By: #### 3 4148-7, 54949-5, BMP, CBC #### [facility] ([id number]) [address], [address] [place] [address] CO2 [Moles/Vol] 29 mmol/L Normal 22-32 [facility] Comment on above: Performed By: #### 3 4148-7, 39306-5, BMP, CBC #### [facility] ([id number]) [address], [address] [place] [address] Creatinine [Mass/Vol] 1.13 mg/dL Normal 0.60-1.30 [facility] Comment on above: Result Comment: METH OD TRACEABLE TO IDMS STANDARD Performed By: #### 3 4148-7, 05527-4, BMP, CBC #### [facility] ([id number]) [address], [address] [place] [address] GFR/1.73 sq M.predicted among non-blacks MDRD (S/P/Bld) [Vol rate/Area] 75 mL/min/{1.73_m2} Normal >=60 [facility] Comment on above: Result Comment: [facility] eGFR is based on the CKD-EPI 2020 equation that does not use a race coefficient. Performed By: #### 3 4148-7, 11641-9, BMP, CBC #### [facility] ([id number]) [address], [facility] [address] [place] [address] Glucose [Mass/Vol] 84 mg/dL Normal 65-99 [facility] Comment on above: Performed By: #### 3 4148-7, 18277-0, BMP, CBC #### [facility] ([id number]) [address] [address] [place] [address] Potassium [Moles/Vol] 4.2 mmol/L Normal 3.5-5.0 [facility] Comment on above: Performed By: #### 3 4148-7, 16413-5, BMP, CBC #### [facility] ([id number]) [address], [facility] [address] [place] [address] Sodium [Moles/Vol] 139 mmol/L Normal 134-146 [facility] Comment on above: Performed By: #### 3 4148-7, 82664-0, BMP, CBC #### [facility] ([id number]) [address], [facility] [address] [place] [address] Urea nitrogen [Mass/Vol] 23 mg/dL Normal 5-23 [facility] Comment on above: Performed By: #### 3 4148-7, 04587-7, BMP, CBC #### [facility] ([id number]) [address] [address] [place] [address] CBC (NO DIFF)on 10-24-2024 Erythrocyte distribution width (RBC) [Ratio] 17.1 % High 11.5-15 [facility] Comment on above: Performed By: #### 3 4148-7, 48326-4, BMP, CBC #### [facility] ([id number]) [address], [address] [place] [address] Hematocrit (Bld) [Volume fraction] 38.9 % Low 39-50 [facility] Comment on above: Performed By: #### 3 4148-7, 92951-1, BMP, CBC #### [facility] ([id number]) [address], [facility] [address] [place] [address] Hemoglobin (Bld) [Mass/Vol] 13.0 g/dL Normal 13-17 [facility] Comment on above: Performed By: #### 3 4148-7, 43341-0, BMP, CBC #### [facility] ([id number]) [address], [facility] [address] [place] [address] MCH (RBC) [Entitic mass] 25.5 pg Low 27-34 [facility] Comment on above: Performed By: #### 3 4148-7, 50895-0, BMP, CBC #### [facility] ([id number]) [address], [facility] [address] [place] [address] MCHC (RBC) [Mass/Vol] 33.3 g/dL Normal 32-36 [facility] Comment on above: Performed By: #### 3 4148-7, 48883-3, BMP, CBC #### [facility] ([id number]) [address], [address] [place] [address] MCV (RBC) [Entitic vol] 77 fL Low 80-100 [facility] Comment on above: Performed By: #### 3 4148-7, 77581-2, BMP, CBC #### [facility] ([id number]) [address], [address] [place] [address] Platelet mean volume (Bld) [Entitic vol] 6.8 fL Low 7-12 [facility] Comment on above: Performed By: #### 3 4148-7, 18778-3, BMP, CBC #### [facility] ([id number]) [address], [facility] [address] [place] [address] Platelets (Bld) [#/Vol] 56 10*3/uL Low 150-450 [facility] Comment on above: Performed By: #### 3 4148-7, 41610-9, BMP, CBC #### [facility] ([id number]) [address], [address] [place] [address] RBC COUNT 5.08 X10E12/L Normal 4.1-5.7 [facility] Comment on above: Performed By: #### 3 4148-7, 63474-5, BMP, CBC #### [facility] ([id number]) [address], [facility] [address] [place] [address] WBC (Bld) [#/Vol] 3.8 10*3/uL Low 4-11 [facility] Comment on above: Performed By: #### 3 4148-7, 72799-7, BMP, CBC #### [facility] ([id number]) [address], [address] [place] [address] MAGNESIUMon --2024 Magnesium [Mass/Vol] 2.1 mg/dL Normal 1.8-2.6 [facility] Comment on above: Performed By: #### 3 4148-7, 05300-6, BMP, CBC #### [facility] ([id number]) [address], [address] [place] [address] BASIC METABOLIC PANELon 05-0 Anion gap [Moles/Vol] 8 mmol/L Normal 5-15 [facility] Comment on above: Performed By: #### 3 4148-7, 08812-9, BMP, CBC #### [facility] ([id number]) [address], [address] [place] [address] Calcium [Mass/Vol] 8.2 mg/dL Low 8.5-10.5 [facility] Comment on above: Performed By: #### 3 4148-7, 43736-4, BMP, CBC #### [facility] ([id number]) [address], [address] [place] [address] Chloride [Moles/Vol] 102 mmol/L Normal 98-109 [facility] Comment on above: Performed By: #### 3 4148-7, 18294-5, BMP, CBC #### [facility] ([id number]) [address], [address] [place] [address] CO2 [Moles/Vol] 29 mmol/L Normal 22-32 [facility] Comment on above: Performed By: #### 3 4148-7, 54474-1, BMP, CBC #### [facility] ([id number]) [address], [address] [place] [address] Creatinine [Mass/Vol] 1.13 mg/dL Normal 0.60-1.30 [facility] Comment on above: Result Comment: METH OD TRACEABLE TO IDMS STANDARD Performed By: #### 3 4148-7, 09131-2, BMP, CBC #### [facility] ([id number]) [address], [address] [place] [address] GFR/1.73 sq M.predicted among non-blacks MDRD (S/P/Bld) [Vol rate/Area] 75 mL/min/{1.73_m2} Normal >=60 [facility] Comment on above: Result Comment: Repo rted eGFR is based on the CKD-EPI 2020 equation that does not use a race coefficient. Performed By: #### 3 4148-7, 70699-3, BMP, CBC #### [facility] ([id number]) [address], [address] [place] [address] Glucose [Mass/Vol] 88 mg/dL Normal 65-99 [facility] Comment on above: Performed By: #### 3 4148-7, 20751-0, BMP, CBC #### [facility] ([id number]) [address], [address] [place] [address] Potassium [Moles/Vol] 4.2 mmol/L Normal 3.5-5.0 [facility] Comment on above: Performed By: #### 3 4148-7, 48998-8, BMP, CBC #### [facility] ([id number]) [address], [address] [place] [address] Sodium [Moles/Vol] 139 mmol/L Normal 134-146 [facility] Comment on above: Performed By: #### 3 4148-7, 08899-8, BMP, CBC #### [facility] ([id number]) [address], [address] [place] [address] Urea nitrogen [Mass/Vol] 24 mg/dL High 5-23 [facility] Comment on above: Performed By: #### 3 4148-7, 30419-3, BMP, CBC #### [facility] ([id number]) [address], [address] [place] [address] CBC (NO DIFF)on 10-23-2024 Erythrocyte distribution width (RBC) [Ratio] 17.1 % High 11.5-15 [facility] Comment on above: Performed By: #### 3 4148-7, 21660-7, BMP, CBC #### [facility] ([id number]) [address], [address] [place] [address] Hematocrit (Bld) [Volume fraction] 39.4 % Normal 39-50 [facility] Comment on above: Performed By: #### 3 4148-7, 59046-1, BMP, CBC #### [facility] ([id number]) [address], [address] [place] [address] Hemoglobin (Bld) [Mass/Vol] 13.0 g/dL Normal 13-17 [facility] Comment on above: Performed By: #### 3 4148-7, 96454-4, BMP, CBC #### [facility] ([id number]) [address], [address] [place] [address] MCH (RBC) [Entitic mass] 25.1 pg Low 27-34 [facility] Comment on above: Performed By: #### 3 4148-7, 50605-6, BMP, CBC #### [facility] ([id number]) [address], [address] [place] [address] MCHC (RBC) [Mass/Vol] 33.1 g/dL Normal 32-36 [facility] Comment on above: Performed By: #### 3 4148-7, 15262-2, BMP, CBC #### [facility] ([id number]) [address], [address] [place] [address] MCV (RBC) [Entitic vol] 76 fL Low 80-100 [facility] Comment on above: Performed By: #### 3 4148-7, 50768-8, BMP, CBC #### [facility] ([id number]) [address], [facility] [address] [place] [address] Platelet mean volume (Bld) [Entitic vol] 6.7 fL Low 7-12 [facility] Comment on above: Performed By: #### 3 4148-7, 67700-5, BMP, CBC #### [facility] ([id number]) [address], [address] [place] [address] Platelets (Bld) [#/Vol] 55 10*3/uL Low 150-450 [facility] Comment on above: Performed By: #### 3 4148-7, 51341-8, BMP, CBC #### [facility] ([id number]) [address], [address] [place] [address] RBC COUNT 5.18 X10E12/L Normal 4.1-5.7 [facility] Comment on above: Performed By: #### 3 4148-7, 44683-1, BMP, CBC #### [facility] ([id number]) [address], [address] [place] [address] WBC (Bld) [#/Vol] 3.6 10*3/uL Low 4-11 [facility] Comment on above: Performed By: #### 3 4148-7, 85671-5, BMP, CBC #### [facility] ([id number]) [address], [address] [place] [address] MAGNESIUMon 10-23-2024 Magnesium [Mass/Vol] 2.1 mg/dL Normal 1.8-2.6 [facility] Comment on above: Performed By: #### 3 4148-7, 50754-8, BMP, CBC #### [facility] ([id number]) [address], [address] [place] [address] BASIC METABOLIC PANELon 05-0 Anion gap [Moles/Vol] 6 mmol/L Normal 5-15 [facility] Comment on above: Performed By: #### 3 4148-7, 62384-5, BMP, CBC #### [facility] ([id number]) [address], [address] [place] [address] Calcium [Mass/Vol] 8.6 mg/dL Normal 8.5-10.5 [facility] Comment on above: Performed By: #### 3 4148-7, 60685-7, BMP, CBC #### [facility] ([id number]) [address], [address] [place] [address] Chloride [Moles/Vol] 101 mmol/L Normal 98-109 [facility] Comment on above: Performed By: #### 3 4148-7, 03792-9, BMP, CBC #### [facility] ([id number]) [address], [address] [place] [address] CO2 [Moles/Vol] 32 mmol/L Normal 22-32 [facility] Comment on above: Performed By: #### 3 4148-7, 36184-9, BMP, CBC #### [facility] ([id number]) [address], [address] [place] [address] Creatinine [Mass/Vol] 1.31 mg/dL High 0.60-1.30 [facility] Comment on above: Result Comment: METH OD TRACEABLE TO IDMS STANDARD Performed By: #### 3 4148-7, 41237-3, BMP, CBC #### [facility] ([id number]) [address] [address] GFR/1.73 sq M.predicted among non-blacks MDRD (S/P/Bld) [Vol rate/Area] 63 mL/min/{1.73_m2} Normal >=60 [facility] Comment on above: Result Comment: [facility] eGFR is based on the CKD-EPI 2020 equation that does not use a race coefficient. Performed By: #### 3 4148-7, 61529-6, BMP, CBC #### [facility] ([id number]) [address] [address] [place] [address] Glucose [Mass/Vol] 77 mg/dL Normal 65-99 [facility] Comment on above: Performed By: #### 3 4148-7, 18996-9, BMP, CBC #### [facility] ([id number]) [address] [address] [place] [address] Potassium [Moles/Vol] 4.5 mmol/L Normal 3.5-5.0 [facility] Comment on above: Performed By: #### 3 4148-7, 05562-1, BMP, CBC #### [facility] ([id number]) [address], [address] [address] Sodium [Moles/Vol] 139 mmol/L Normal 134-146 [facility] Comment on above: Performed By: #### 3 4148-7, 34126-9, BMP, CBC #### [facility] ([id number]) [address] [address] Urea nitrogen [Mass/Vol] 24 mg/dL High 5-23 [facility] Comment on above: Performed By: #### 3 4148-7, 86605-0, BMP, CBC #### [facility] ([id number]) [address] [address] CBC (NO DIFF)on 10-22-2024 Erythrocyte distribution width (RBC) [Ratio] 17.2 % High 11.5-15 [facility] Comment on above: Performed By: #### 3 4148-7, 81359-1, BMP, CBC #### [facility] ([id number]) [address] [address] Hematocrit (Bld) [Volume fraction] 40.6 % Normal 39-50 [facility] Comment on above: Performed By: #### 3 4148-7, 15318-2, BMP, CBC #### [facility] ([id number]) [address] [address] Hemoglobin (Bld) [Mass/Vol] 13.1 g/dL Normal 13-17 [facility] Comment on above: Performed By: #### 3 4148-7, 98194-1, BMP, CBC #### [facility] ([id number]) [address] [address] MCH (RBC) [Entitic mass] 24.7 pg Low 27-34 [facility] Comment on above: Performed By: #### 3 4148-7, 15323-1, BMP, CBC #### [facility] ([id number]) [address], [address] [place] [address] MCHC (RBC) [Mass/Vol] 32.2 g/dL Normal 32-36 [facility] Comment on above: Performed By: #### 3 4148-7, 50407-1, BMP, CBC #### [facility] ([id number]) [address], [address] [place] [address] MCV (RBC) [Entitic vol] 77 fL Low 80-100 [facility] Comment on above: Performed By: #### 3 4148-7, 41243-4, BMP, CBC #### [facility] ([id number]) [address], [address] [place] [address] Platelet mean volume (Bld) [Entitic vol] 6.9 fL Low 7-12 [facility] Comment on above: Performed By: #### 3 4148-7, 65319-3, BMP, CBC #### [facility] ([id number]) [address], [address] [place] [address] Platelets (Bld) [#/Vol] 65 10*3/uL Low 150-450 [facility] Comment on above: Performed By: #### 3 4148-7, 17721-2, BMP, CBC #### [facility] ([id number]) [address], [address] [place] [address] RBC COUNT 5.29 X10E12/L Normal 4.1-5.7 [facility] Comment on above: Performed By: #### 3 4148-7, 19346-1, BMP, CBC #### [facility] ([id number]) [address], [address] [place] [address] WBC (Bld) [#/Vol] 4.4 10*3/uL Normal 4-11 [facility] Comment on above: Performed By: #### 3 4148-7, 28897-8, BMP, CBC #### [facility] ([id number]) [address], [address] [place] [address] FREE LIGHT CHAINSon 10-23-19 25 FREE SHENA/LAMBD RATIO 1.25 Normal 0.26-1.65 [facility] Comment on above: Performed By: #### 3 4148-7, 97366-8, BMP, CBC #### [facility] ([id number]) [address], [address] [place] [address] FREE KAPPA LT CHAINS 2.35 mg/dL High 0.33-1.94 [facility] Comment on above: Performed By: #### 3 4148-7, 84012-0, BMP, CBC #### [facility] ([id number]) [address], [address] [place] [address] FREE LAMBDA LT CHAINS 1.88 mg/dL Normal 0.57-2.63 [facility] Comment on above: Performed By: #### 3 4148-7, 01166-7, BMP, CBC #### [facility] ([id number]) [address], [address] [place] [address] MAGNESIUMon 10-22-2024 Magnesium [Mass/Vol] 2.1 mg/dL Normal 1.8-2.6 [facility] Comment on above: Performed By: #### 3 4148-7, 67517-2, BMP, CBC #### [facility] ([id number]) [address], [address] [place] [id number] MR CERVICAL SPINE WO CONTon 10-22-2024 MR [...] on 10/22/2024 7:28 AM Normal [facility] MR LUMBAR SPINE WO CONTon MR LUMBAR [...] on 10/22/2024 7:24 AM Normal [facility] SERUM IMMUNOFIXATIONon 10-22 IgA [Mass/Vol] 285 mg/dL Normal 68-378 [facility] Comment on above: Performed By: #### 3 4148-7, 24624-1, BMP, CBC #### [facility] ([id number]) [address], [address] [place] [address] IgG [Mass/Vol] 1378 mg/dL Normal 635-1741 [facility] Comment on above: Performed By: #### 3 4148-7, 94016-7, BMP, CBC #### [facility] ([id number]) [address], [address] [place] [address] IgM [Mass/Vol] 54 mg/dL Normal 45-281 [facility] Comment on above: Performed By: #### 3 4148-7, 18583-5, BMP, CBC #### [facility] ([id number]) [address], [address] [place] [address] IMMUNOFIX INTERP Unremarkable pattern and quantitation, no monoclonal bands Normal [facility] Comment on above: Performed By: #### 3 4148-7, 75202-2, BMP, CBC #### [facility] ([id number]) [address], [address] [place] [address] VALPROIC ACID, FREE, Son VALPROIC ACID, FREE 22 mcg/mL Normal 5-25 [facility] Comment on above: Result Comment: Test Performed by: [place] [address] Battery Container Tester: Eduardo Clark Ph.D.; CLIA# [id number] Performed By: #### 3 4148-7, 45081-1, BMP, CBC #### [facility] ([id number]) [address], [address] [place] [address] BASIC METABOLIC PANELon 05-0 Anion gap [Moles/Vol] 6 mmol/L Normal 5-15 [facility] Comment on above: Performed By: #### 3 4148-7, 80217-7, BMP, CBC #### [facility] ([id number]) [address], [address] [place] [address] Calcium [Mass/Vol] 8.8 mg/dL Normal 8.5-10.5 [facility] Comment on above: Performed By: #### 3 4148-7, 93216-8, BMP, CBC #### [facility] ([id number]) [address], [address] [place] [address] Chloride [Moles/Vol] 101 mmol/L Normal 98-109 [facility] Comment on above: Performed By: #### 3 4148-7, 49475-3, BMP, CBC #### [facility] ([id number]) [address], [address] [place] [address] CO2 [Moles/Vol] 32 mmol/L Normal 22-32 [facility] Comment on above: Performed By: #### 3 4148-7, 44321-1, BMP, CBC #### [facility] ([id number]) [address], [facility] [address] [place] [address] Creatinine [Mass/Vol] 1.04 mg/dL Normal 0.60-1.30 [facility] Comment on above: Result Comment: METH OD TRACEABLE TO IDMS STANDARD Performed By: #### 3 4148-7, 41969-2, BMP, CBC #### [facility] ([id number]) [address], [address] [address] GFR/1.73 sq M.predicted among non-blacks MDRD (S/P/Bld) [Vol rate/Area] 83 mL/min/{1.73_m2} Normal >=60 [facility] Comment on above: Result Comment: [facility] eGFR is based on the CKD-EPI 2020 equation that does not use a race coefficient. Performed By: #### 3 4148-7, 50048-4, BMP, CBC #### [facility] ([id number]) [address] [address] Glucose [Mass/Vol] 87 mg/dL Normal 65-99 [facility] Comment on above: Performed By: #### 3 4148-7, 73909-2, BMP, CBC #### [facility] ([id number]) [address] [address] [place] [address] Potassium [Moles/Vol] 4.3 mmol/L Normal 3.5-5.0 [facility] Comment on above: Performed By: #### 3 4148-7, 72104-5, BMP, CBC #### [facility] ([id number]) [address], [facility] [address] [place] [address] Sodium [Moles/Vol] 139 mmol/L Normal 134-146 [facility] Comment on above: Performed By: #### 3 4148-7, 41061-1, BMP, CBC #### [facility] ([id number]) [address], [facility] [address] [place] [address] Urea nitrogen [Mass/Vol] 15 mg/dL Normal 5-23 [facility] Comment on above: Performed By: #### 3 4148-7, 72113-3, BMP, CBC #### [facility] ([id number]) [address] [address] CBC (NO DIFF)on 10-21-2024 Erythrocyte distribution width (RBC) [Ratio] 16.8 % High 11.5-15 [facility] Comment on above: Performed By: #### 3 4148-7, 81344-7, BMP, CBC #### [facility] ([id number]) [address] [address] Hematocrit (Bld) [Volume fraction] 44.6 % Normal 39-50 [facility] Comment on above: Performed By: #### 3 4148-7, 70829-9, BMP, CBC #### [facility] ([id number]) [address] [address] Hemoglobin (Bld) [Mass/Vol] 14.5 g/dL Normal 13-17 [facility] Comment on above: Performed By: #### 3 4148-7, 49677-9, BMP, CBC #### [facility] ([id number]) [address] [address] MCH (RBC) [Entitic mass] 24.9 pg Low 27-34 [facility] Comment on above: Performed By: #### 3 4148-7, 21802-3, BMP, CBC #### [facility] ([id number]) [address], [address] [place] [address] MCHC (RBC) [Mass/Vol] 32.6 g/dL Normal 32-36 [facility] Comment on above: Performed By: #### 3 4148-7, 82684-6, BMP, CBC #### [facility] ([id number]) [address], [facility] [address] [place] [address] MCV (RBC) [Entitic vol] 76 fL Low 80-100 [facility] Comment on above: Performed By: #### 3 4148-7, 19085-9, BMP, CBC #### [facility] ([id number]) [address], [facility] [address] [place] [address] Platelet mean volume (Bld) [Entitic vol] 7.1 fL Normal 7-12 [facility] Comment on above: Performed By: #### 3 4148-7, 11289-4, BMP, CBC #### [facility] ([id number]) [address], [address] [place] [address] Platelets (Bld) [#/Vol] 57 10*3/uL Low 150-450 [facility] Comment on above: Performed By: #### 3 4148-7, 04441-7, BMP, CBC #### [facility] ([id number]) [address], [facility] [address] [place] [address] RBC COUNT 5.83 X10E12/L High 4.1-5.7 [facility] Comment on above: Performed By: #### 3 4148-7, 32293-4, BMP, CBC #### [facility] ([id number]) [address], [facility] [address] [place] [address] WBC (Bld) [#/Vol] 3.1 10*3/uL Low 4-11 [facility] Comment on above: Performed By: #### 3 4148-7, 27701-3, BMP, CBC #### [facility] ([id number]) [address], [address] [place] [address] MAGNESIUMon 10-21-2024 Magnesium [Mass/Vol] 2.1 mg/dL Normal 1.8-2.6 [facility] Comment on above: Performed By: #### 3 4148-7, 55886-9, BMP, CBC #### [facility] ([id number]) [address], [address] [place] [address] US ABDOMEN LMTDon 10-21-2024 US ABDOMEN LMTD [...] on 10/21/2024 2:02 PM Normal [facility] VALPROIC ACID DEPAKANEon VALPROIC ACID 91 ug/mL Normal 50-100 [facility] Comment on above: Performed By: #### 3 4148-7, 36617-5, BMP, CBC #### [facility] ([id number]) [address], [address] [place] [address] BASIC METABOLIC PANELon 05-0 Anion gap [Moles/Vol] 6 mmol/L Normal 5-15 [facility] Comment on above: Performed By: #### 3 4148-7, 94176-1, BMP, CBC #### [facility] ([id number]) [address], [address] [place] [address] Calcium [Mass/Vol] 8.2 mg/dL Low 8.5-10.5 [facility] Comment on above: Performed By: #### 3 4148-7, 49594-4, BMP, CBC #### [facility] ([id number]) [address], [address] [address] Chloride [Moles/Vol] 102 mmol/L Normal 98-109 [facility] Comment on above: Performed By: #### 3 4148-7, 16767-2, BMP, CBC #### [facility] ([id number]) [address], [address] [address] CO2 [Moles/Vol] 31 mmol/L Normal 22-32 [facility] Comment on above: Performed By: #### 3 4148-7, 87393-2, BMP, CBC #### [facility] ([id number]) [address], [address] [address] Creatinine [Mass/Vol] 1.12 mg/dL Normal 0.60-1.30 [facility] Comment on above: Result Comment: METH OD TRACEABLE TO IDMS STANDARD Performed By: #### 3 4148-7, 81729-9, BMP, CBC #### [facility] ([id number]) [address], [address] [address] GFR/1.73 sq M.predicted among non-blacks MDRD (S/P/Bld) [Vol rate/Area] 76 mL/min/{1.73_m2} Normal >=60 [facility] Comment on above: Result Comment: [facility] eGFR is based on the CKD-EPI 2020 equation that does not use a race coefficient. Performed By: #### 3 4148-7, 81687-5, BMP, CBC #### [facility] ([id number]) [address], [address] [place] [address] Glucose [Mass/Vol] 92 mg/dL Normal 65-99 [facility] Comment on above: Performed By: #### 3 4148-7, 34942-0, BMP, CBC #### [facility] ([id number]) [address], [address] [place] [address] Potassium [Moles/Vol] 3.7 mmol/L Normal 3.5-5.0 [facility] Comment on above: Performed By: #### 3 4148-7, 09243-4, BMP, CBC #### [facility] ([id number]) [address], [facility] [address] [place] [address] Sodium [Moles/Vol] 139 mmol/L Normal 134-146 [facility] Comment on above: Performed By: #### 3 4148-7, 75372-5, BMP, CBC #### [facility] ([id number]) [address], [facility] [address] [place] [address] Urea nitrogen [Mass/Vol] 15 mg/dL Normal 5-23 [facility] Comment on above: Performed By: #### 3 4148-7, 61843-8, BMP, CBC #### [facility] ([id number]) [address], [facility] [address] [place] [address] CBC (NO DIFF)on 10-20-2024 Erythrocyte distribution width (RBC) [Ratio] 16.9 % High 11.5-15 [facility] Comment on above: Performed By: #### 3 4148-7, 17089-4, BMP, CBC #### [facility] ([id number]) [address], [facility] [address] [place] [address] Hematocrit (Bld) [Volume fraction] 39.2 % Normal 39-50 [facility] Comment on above: Performed By: #### 3 4148-7, 11400-8, BMP, CBC #### [facility] ([id number]) [address], [address] [place] [address] Hemoglobin (Bld) [Mass/Vol] 12.9 g/dL Low 13-17 [facility] Comment on above: Performed By: #### 3 4148-7, 36374-2, BMP, CBC #### [facility] ([id number]) [address], [address] [place] [address] MCH (RBC) [Entitic mass] 25.2 pg Low 27-34 [facility] Comment on above: Performed By: #### 3 4148-7, 40337-3, BMP, CBC #### [facility] ([id number]) [address], [address] [place] [address] MCHC (RBC) [Mass/Vol] 33.0 g/dL Normal 32-36 [facility] Comment on above: Performed By: #### 3 4148-7, 95937-3, BMP, CBC #### [facility] ([id number]) [address], [address] [place] [address] MCV (RBC) [Entitic vol] 77 fL Low 80-100 [facility] Comment on above: Performed By: #### 3 4148-7, 55251-4, BMP, CBC #### [facility] ([id number]) [address], [address] [place] [address] Platelet mean volume (Bld) [Entitic vol] 7.1 fL Normal 7-12 [facility] Comment on above: Performed By: #### 3 4148-7, 64713-6, BMP, CBC #### [facility] ([id number]) [address], [address] [place] [address] Platelets (Bld) [#/Vol] 57 10*3/uL Low 150-450 [facility] Comment on above: Performed By: #### 3 4148-7, 02993-0, BMP, CBC #### [facility] ([id number]) [address], [address] [place] [address] RBC COUNT 5.13 X10E12/L Normal 4.1-5.7 [facility] Comment on above: Performed By: #### 3 4148-7, 11804-6, BMP, CBC #### [facility] ([id number]) [address], [address] [place] [address] WBC (Bld) [#/Vol] 2.6 10*3/uL Low 4-11 [facility] Comment on above: Performed By: #### 3 4148-7, 30537-5, BMP, CBC #### [facility] ([id number]) [address], [address] [place] [address] FIBRIN SPLIT PRODUCTSon 05-0 FIBRIN SPLIT PRODUCT <5 Normal <5 [facility] Comment on above: Performed By: #### 3 4148-7, 50563-4, BMP, CBC #### [facility] ([id number]) [address], [address] [place] [address] HEPATITIS PANEL, ACUTEon ANTI HCV W/PCR REFLX Non-Reactive Normal Non-Clark ctiv e [facility] Comment on above: Result Comment: If r ecent infection suspected, recommend repeat testing (>2 months). Jitaui-kh-fdlppj ratio is <1.0. Performed By: #### 3 4148-7, 58497-3, BMP, CBC #### [facility] ([id number]) [address], [address] [place] [address] HEPATITIS A IGM Non-Reactive Normal Non-Reactiv e [facility] Comment on above: Performed By: #### 3 4148-7, 79517-5, BMP, CBC #### [facility] ([id number]) [address], [address] [place] [address] HEPATITIS B CORE IGM Non-Reactive Normal Non-Clark ctiv e [facility] Comment on above: Performed By: #### 3 4148-7, 56679-6, BMP, CBC #### [facility] ([id number]) [address], [address] [place] [address] HEPATITIS B SURF AG Non-Reactive Normal Non-Reac tiv e [facility] Comment on above: Performed By: #### 3 4148-7, 10285-6, BMP, CBC #### [facility] ([id number]) [address], [address] [place] [address] IMMATURE PLATELET FRACTIONon 10-20-2024 IMMATURE PLATELET FRACTION 1.2 % Normal 1.0-11.4 [facility] Comment on above: Result Comment: Perf ormed At: [facility] ([facility] [place] [address] [employer]: DO RUBEN AN Number: [id number] Performed By: #### 3 4148-7, 71629-7, BMP, CBC #### [facility] ([id number]) [address], [address] [place] [address] MAGNESIUMon 10-20-2024 Magnesium [Mass/Vol] 2.1 mg/dL Normal 1.8-2.6 [facility] Comment on above: Performed By: #### 3 4148-7, 35499-9, BMP, CBC #### [facility] ([id number]) [address], [address] [place] [address] JEROME GENERIC ORDERon 025 TEST RESULT SEE COMMENTS Normal [facility] Comment on above: Result Comment: Test Result [...] method is an immunoenzymatic assay manufactured by [employer] and performed on the hurleypalmerflatt DxI 800. Values obtained with different assay methods or kits may be different and cannot be used interchangeably. Test results cannot be interpreted as absolute evidence for the presence or absence of malignant disease. Test Performed by: [place] [address] Battery Container Tester: Eduardo Clark Ph.D.; CLIA# [id number] Performed By: #### 3 4148-7, 52841-3, BMP, CBC #### [facility] ([id number]) [address], [address] [place] [address] POTASSIUMon 10-20-2024 Potassium [Moles/Vol] 4.6 mmol/L Normal 3.5-5.0 [facility] Comment on above: Performed By: #### 3 4148-7, 29546-9, BMP, CBC #### [facility] ([id number]) [address] [facility] [facility] [place] [address] PROSTATE HEALTH INDEX REFLEX (PHI13)on 10-20-2024 PROSTATE HEALTH INDX SEE COMMENTS Normal [facility] Comment on above: Result Comment: Test Result [...] method is an immunoenzymatic assay manufactured by [employer] and performed on the hur[employer]palmer[employer] DxI 800. Values obtained with different assay methods or kits may be different and cannot be used interchangeably. Test results cannot be interpreted as absolute evidence for the presence or absence of malignant disease. Test Performed by: [facility] [employer] [facility] [employer] [address] [place] [address] Battery Container Tester: Eduardo Clark Ph.D.; CLIA# [id number] Performed By: #### 3 4148-7, 99222-9, BMP, CBC #### [facility] ([id number]) [address], [address] [place] [address] PSA W/ REFLEX TO PROSTATE HE ALTH INDEXon 10-20-2024 PSA W/ REFLEX TO PHI SEE COMMENTS Abnormal Pr [facility] Comment on above: Result Comment: Test Result Flag Unit RefValue ------ Prostate Health Index Reflex, S Prostate Specific Antigen, S 5.7 H ng/mL <=3.5 Test Performed by: [place] [address] Battery Container Tester: Eduardo Clark Ph.D.; CLIA# [id number] Performed By: #### 3 4148-7, 27683-5, BMP, CBC #### [facility] ([id number]) [address], [address] [place] [address] URINALYSISon 10-20-2024 Bilirubin Ql (U) Negative Normal Negative [facility] Comment on above: Performed By: #### 3 4148-7, 82774-8, BMP, CBC #### [facility] ([id number]) [address], [address] [place] [address] BLOOD/HGB Negative Normal Negative [facility] Comment on above: Performed By: #### 3 4148-7, 74704-2, BMP, CBC #### [facility] ([id number]) [address], [address] [place] [address] Color (U) Yellow Normal Yellow, Colorless [facility] Comment on above: Performed By: #### 3 4148-7, 87332-9, BMP, CBC #### [facility] ([id number]) [address], [address] [place] [address] Glucose Ql (U) Negative Normal Negative [facility] Comment on above: Performed By: #### 3 4148-7, 09532-6, BMP, CBC #### [facility] ([id number]) [address], [address] [place] [address] Ketones Ql (U) Negative Normal Negative [facility] Comment on above: Performed By: #### 3 4148-7, 45150-7, BMP, CBC #### [facility] ([id number]) [address], [address] [place] [address] Leukocyte esterase Test strip Ql (U) Negative Normal Negative [facility] Comment on above: Performed By: #### 3 4148-7, 55137-2, BMP, CBC #### [facility] ([id number]) [address], [address] [place] [address] Nitrite Ql (U) Negative Normal Negative [facility] Comment on above: Performed By: #### 3 4148-7, 72973-8, BMP, CBC #### [facility] ([id number]) [address], [address] [place] [address] PH,URINE 7.0 Normal 5.0-8.5 [facility] Comment on above: Performed By: #### 3 4148-7, 71294-6, BMP, CBC #### [facility] ([id number]) [address], [address] [place] [address] Protein Ql (U) Negative Normal Negative [facility] Comment on above: Performed By: #### 3 4148-7, 50892-1, BMP, CBC #### [facility] ([id number]) [address], [address] [place] [address] Specific gravity (U) [Rel density] 1.013 Normal 1.003-1.035 [facility] Comment on above: Performed By: #### 3 4148-7, 08368-6, BMP, CBC #### [facility] ([id number]) [address] [address] TURBIDITY Clear Normal Clear [facility] Comment on above: Performed By: #### 3 4148-7, 61244-1, BMP, CBC #### [facility] ([id number]) [address] [address] UROBILINOGEN <1.1 eu/dL Normal <1.1 eu/dL [facility] Comment on above: Performed By: #### 3 4148-7, 20508-9, BMP, CBC #### [facility] ([id number]) [address] [address] APTTon 10-19-2024 aPTT Coag (Bld) [Time] 29 s Normal 26-37 [facility] Comment on above: Performed By: #### 1 9123-9, 2777-1, BMP, CBC, THYR #### [facility] ([id number]) [address] [address] CBC WITH AUTO DIFFERENTIALon 10-19-2024 BASOPHILS ABSOLUTE COUNT (10*3/UL) BY AUTOMATED COUNT 0.0 10*3/uL [facility] Comment on above: Performed By: #### 1 9123-9, 2777-1, BMP, CBC, THYR #### [facility] ([id number]) [address] [address] BASOPHILS RELATIVE PERCENT BY AUTOMATED COUNT 0.4 % Normal [facility] Comment on above: Performed By: #### 1 9123-9, 2777-1, BMP, CBC, THYR #### [facility] ([id number]) [address], [address] [place] [address] CELLAVISION DIFFERENTIAL TYPE AUTOMATED DIFFERENTIAL Normal [facility] Comment on above: Performed By: #### 1 9123-02, 2776-06, BMP, CBC, THYR #### [facility] ([id number]) [address] [address] [place] [address] Eosinophils (Bld) [#/Vol] 0.1 10*3/uL Normal [facility] Comment on above: Performed By: #### 1 9123-02, 2776-06, BMP, CBC, THYR #### [facility] ([id number]) [address], [facility] [address] [place] [address] EOSINOPHILS RELATIVE PERCENT BY AUTOMATED COUNT 2.1 % Normal [facility] Comment on above: Performed By: #### 1 9123-02, 2776-06, BMP, CBC, THYR #### [facility] ([id number]) [address] [address] Erythrocyte distribution width (RBC) [Ratio] 16.6 % High 11.5-15 [facility] Comment on above: Performed By: #### 1 9123-02, 2776-06, BMP, CBC, THYR #### [facility] ([id number]) [address] [address] [place] [address] Hematocrit (Bld) [Volume fraction] 36.9 % Low 39-50 [facility] Comment on above: Performed By: #### 1 9123-02, 2776-06, BMP, CBC, THYR #### [facility] ([id number]) [address] [address] Hemoglobin (Bld) [Mass/Vol] 12.2 g/dL Low 13-17 [facility] Comment on above: Performed By: #### 1 9123-02, 2776-06, BMP, CBC, THYR #### [facility] ([id number]) [address], [facility] [address] [place] [address] LYMPHOCYTES ABSOLUTE COUNT (10*3/UL) BY AUTOMATED COUNT 1.1 10*3/uL Normal [facility] Comment on above: Performed By: #### 1 919, 277-, BMP, CBC, THYR #### [facility] ([id number]) [address], [address] [address] LYMPHOCYTES RELATIVE PERCENT BY AUTOMATED COUNT 39.1 % Normal [facility] Comment on above: Performed By: #### 1 9123-02, 2776-06, BMP, CBC, THYR #### [facility] ([id number]) [address], [facility] [address] [place] [address] MCH (RBC) [Entitic mass] 24.9 pg Low 27-34 [facility] Comment on above: Performed By: #### 1 9123-02, 2776-06, BMP, CBC, THYR #### [facility] ([id number]) [address], [facility] [address] [place] [address] MCHC (RBC) [Mass/Vol] 32.9 g/dL Normal 32-36 [facility] Comment on above: Performed By: #### 1 9123-02, 2776-06, BMP, CBC, THYR #### [facility] ([id number]) [address], [facility] [address] [place] [address] MCV (RBC) [Entitic vol] 76 fL Low 80-100 [facility] Comment on above: Performed By: #### 1 91, 27712-18, BMP, CBC, THYR #### [facility] ([id number]) [address], [address] [place] [address] MONOCYTES ABSOLUTE COUNT (10*3/UL) BY AUTOMATED COUNT 0.3 10*3/uL Normal [facility] Comment on above: Performed By: #### 1 9123-9, 2777-, BMP, CBC, THYR #### [facility] ([id number]) [address] [address] [place] [address] MONOCYTES RELATIVE PERCENT BY AUTOMATED COUNT 10.7 % Normal [facility] Comment on above: Performed By: #### 1 9123-9, 277-, BMP, CBC, THYR #### [facility] ([id number]) [address], [facility] [address] [place] [address] NEUTROPHILS ABSOLUTE COUNT BY AUTOMATED COUNT 1.3 10*3/uL Normal [facility] Comment on above: Performed By: #### 1 9123-9, 277-, BMP, CBC, THYR #### [facility] ([id number]) [address] [address] NEUTROPHILS RELATIVE PERCENT BY AUTOMATED COUNT 47.7 % Normal [facility] Comment on above: Performed By: #### 1 9123-9, 2777-, BMP, CBC, THYR #### [facility] ([id number]) [address], [facility] [address] [place] [address] Platelet mean volume (Bld) [Entitic vol] 6.9 fL Low 7-12 [facility] Comment on above: Performed By: #### 1 9123-9, 2777-, BMP, CBC, THYR #### [facility] ([id number]) [address], [facility] [address] [place] [address] Platelets (Bld) [#/Vol] 56 10*3/uL Low 150-450 [facility] Comment on above: Performed By: #### 1 9123-9, 2777-, BMP, CBC, THYR #### [facility] ([id number]) [address], [facility] [address] [place] [address] RBC COUNT 4.89 X10E12/L Normal 4.1-5.7 [facility] Comment on above: Performed By: #### 1 9123-9, 2777-1, BMP, CBC, THYR #### [facility] ([id number]) [address], [address] [place] [address] WBC (Bld) [#/Vol] 2.7 10*3/uL Low 4-11 [facility] Comment on above: Performed By: #### 1 9123-9, 277-, BMP, CBC, THYR #### [facility] ([id number]) [address], [address] [place] [address] CK TOTALon 10-19-2024 CPK 38 U/L Normal 24-195 [facility] Comment on above: Performed By: #### 1 9123-9, 2777-, BMP, CBC, THYR #### [facility] ([id number]) [address] [place] [address] COMPREHENSIVE METABOLIC PANE Jatin 10-19-2024 Albumin [Mass/Vol] 3.0 g/dL Low 3.2-5.3 [facility] Comment on above: Performed By: #### 1 9123-9, 2777-, BMP, CBC, THYR #### [facility] ([id number]) [address], [address] [place] [address] ALP [Catalytic activity/Vol] 34 U/L Low 39-130 [facility] Comment on above: Performed By: #### 1 9123-9, 2777-, BMP, CBC, THYR #### [facility] ([id number]) [address], [address] [place] [address] ALT [Catalytic activity/Vol] 12 U/L Normal <=40 [facility] Comment on above: Performed By: #### 1 9123-9, 2777-1, BMP, CBC, THYR #### [facility] ([id number]) [address], [address] [place] [address] Anion gap [Moles/Vol] 4 mmol/L Low 5-15 [facility] Comment on above: Performed By: #### 1 91-9, 27712-18, BMP, CBC, THYR #### [facility] ([id number]) [address], [address] [place] [address] AST [Catalytic activity/Vol] 16 U/L Normal <=41 [facility] Comment on above: Performed By: #### 1 9123-02, 2776-06, BMP, CBC, THYR #### [facility] ([id number]) [address], [address] [place] [address] Bilirubin [Mass/Vol] 0.8 mg/dL Normal 0.3-1.2 [facility] Comment on above: Performed By: #### 1 9123-02, 2776-06, BMP, CBC, THYR #### [facility] ([id number]) [address], [address] [place] [address] Calcium [Mass/Vol] 7.8 mg/dL Low 8.5-10.5 [facility] Comment on above: Performed By: #### 1 9122-, 27712-18, BMP, CBC, THYR #### [facility] ([id number]) [address], [address] [place] [address] Chloride [Moles/Vol] 103 mmol/L Normal 98-109 [facility] Comment on above: Performed By: #### 1 9123-, 27712-18, BMP, CBC, THYR #### [facility] ([id number]) [address], [address] [place] [address] CO2 [Moles/Vol] 33 mmol/L High 22-32 [facility] Comment on above: Performed By: #### 1 9123-9, 27712-18, BMP, CBC, THYR #### [facility] ([id number]) [address], [address] [place] [address] Creatinine [Mass/Vol] 1.04 mg/dL Normal 0.60-1.30 [facility] Comment on above: Result Comment: METH OD TRACEABLE TO IDMS STANDARD Performed By: #### 1 9123-9, 2777-, BMP, CBC, THYR #### [facility] ([id number]) [address], [address] [place] [address] GFR/1.73 sq M.predicted among non-blacks MDRD (S/P/Bld) [Vol rate/Area] 83 mL/min/{1.73_m2} Normal >=60 [facility] Comment on above: Result Comment: [facility] eGFR is based on the CKD-EPI 2020 equation that does not use a race coefficient. Performed By: #### 1 9123-9, 277-, BMP, CBC, THYR #### [facility] ([id number]) [address], [address] [place] [address] Glucose [Mass/Vol] 108 mg/dL High 65-99 [facility] Comment on above: Performed By: #### 1 9123-9, 277-, BMP, CBC, THYR #### [facility] ([id number]) [address], [address] [place] [address] Potassium [Moles/Vol] 4.1 mmol/L Normal 3.5-5.0 [facility] Comment on above: Performed By: #### 1 9123-9, 277-, BMP, CBC, THYR #### [facility] ([id number]) [address], [address] [place] [address] Protein [Mass/Vol] 5.3 g/dL Low 6.0-8.0 [facility] Comment on above: Performed By: #### 1 9123-9, 277-, BMP, CBC, THYR #### [facility] ([id number]) [address] [place] [address] Sodium [Moles/Vol] 140 mmol/L Normal 134-146 [facility] Comment on above: Performed By: #### 1 9123-9, 2777-1, BMP, CBC, THYR #### [facility] ([id number]) [address] [place] [address] Urea nitrogen [Mass/Vol] 21 mg/dL Normal 5-23 [facility] Comment on above: Performed By: #### 1 9123-9, 2777-1, BMP, CBC, THYR #### [facility] ([id number]) [address], [address] [place] [address] CT BRAIN WO CONTon CT BRAIN WO [...] on 10/19/2024 5:00 AM Normal [facility] FERRITINon 10-19-2024 Ferritin [Mass/Vol] 208 ng/mL Normal 24-336 [facility] Comment on above: Performed By: #### 1 9123-9, 2777-1, BMP, CBC, THYR #### [facility] ([id number]) [address], [address] [place] [address] FIBRINOGENon 10-19-2024 FIBRINOGEN 179 mg/dL Low 190-480 [facility] Comment on above: Performed By: #### 1 9123-9, 277-, BMP, CBC, THYR #### [facility] ([id number]) [address], [address] [place] [address] FOLATEon 10-19-2024 FOLIC ACID 9.7 ng/mL Normal >5.8 [facility] Comment on above: Performed By: #### 1 9123-9, 2777-, BMP, CBC, THYR #### [facility] ([id number]) [address], [address] [place] [address] IRON AND TIBCon 10-19-2024 Iron [Mass/Vol] 96 ug/dL Normal 50-212 [facility] Comment on above: Performed By: #### 1 9123-9, 2777-, BMP, CBC, THYR #### [facility] ([id number]) [address], [address] [place] [address] IRON BINDING 245 ug/dL Low 250-425 [facility] Comment on above: Performed By: #### 1 9123-9, 2777-, BMP, CBC, THYR #### [facility] ([id number]) [address], [address] [place] [address] IRON SATURATION 39 % SATURATION Normal 20-50 [facility] Comment on above: Performed By: #### 1 9123-9, 2777-1, BMP, CBC, THYR #### [facility] ([id number]) [address], [address] [place] [address] Transferrin [Mass/Vol] 175 mg/dL Normal 168-336 [facility] Comment on above: Performed By: #### 1 9123-9, 2777-1, BMP, CBC, THYR #### [facility] ([id number]) [address], [address] [place] [address] MAGNESIUMon 10-19-2024 Magnesium [Mass/Vol] 2.0 mg/dL Normal 1.8-2.6 [facility] Comment on above: Performed By: #### 1 9123-9, 2777-, BMP, CBC, THYR #### [facility] ([id number]) [address], [address] [place] [address] MYOGLOBIN, SERUMon SERUM MYOGLOBIN 15.9 ng/mL Low 17.4-105.7 [facility] Comment on above: Performed By: #### 3 4148-7, 87154-4, BMP, CBC #### [facility] ([id number]) [address], [address] [place] [address] PROTIME AND INRon 10-19-2024 INR 1.1 Normal 0.9-1.2 [facility] Comment on above: Performed By: #### 1 9123-9, 2777-1, BMP, CBC, THYR #### [facility] ([id number]) [address], [address] [place] [address] PT Coag (PPP) [Time] 12.3 s Normal 9.8-13.2 [facility] Comment on above: Performed By: #### 1 9123-9, 2777-1, BMP, CBC, THYR #### [facility] ([id number]) [address], [address] [place] [address] RETICULOCYTESon 10-19-2024 RETICULOCYTE COUNT 1.2 % Normal 0.4-2.2 [facility] Comment on above: Performed By: #### 1 9123-9, 2777-1, BMP, CBC, THYR #### [facility] ([id number]) [address], [address] [place] [address] TROP I, HIGH SENSITIVITY 1 H OURon 10-19-2024 TROPONIN I, HIGH SENSITIVITY 5 ng/L Normal <21 [facility] Comment on above: Performed By: #### 1 9123-9, 2777-1, BMP, CBC, THYR #### [facility] ([id number]) [address], [address] [place] [address] TROPONIN I, HIGH SENSITIVITY 0 HOURon 10-19-2024 TROPONIN I, HIGH SENSITIVITY 4 ng/L Normal <21 [facility] Comment on above: Performed By: #### 3 4148-7, 89371-8, BMP, CBC #### [facility] ([id number]) [address], [address] [place] [address] VITAMIN B12on 10-19-2024 Cobalamin (Vitamin B12) [Mass/Vol] 943 pg/mL High 180-914 [facility] Comment on above: Performed By: #### 1 9123-9, 2777-1, BMP, CBC, THYR #### [facility] ([id number]) [address], [address] [place] [address] XR CHEST 1 VWon 10-19-2024 XR CHEST [...] Sesay MD on 10/19/2024 4:33 AM Normal [facility] CNOVon 07-30-2024 CNOV Office Visit (RBMBHT) ESTELLA JEFFERY ([id number]) 1965 M Date Time Provider Department 07/30/24 12:40 PM FIDELINA FISHER [facility] During your visit today, we recorded the following information about you: Temperature Pulse Blood pressure Weight 97.6 degrees 84/minute 99/63 76.2 kg Fidelina Fisher APRN.CITY CONTROLLER 08/12/2024 10:55 PM Signed July 30, 2024 Reason for visit: Patient presents with: Consult Previous Visit: No previous PMANDR. HPI (brief) Estella Jeffery is a 59 year old male. PMHx of TBI and HDL. He had an unwitnessed fall down the stairs. Per family he had a fall in May 2024. He was evaluated at [facility] following the fall. Per he had an episode with agitation. Per family he was not displaying agitation prior to the fall. Family notes prior to his fall he was driving and independent with his care. He is now requiring a lot of assistance with care. Subjective: Patient presents with: Consult Family notes concerns with coordination. He has been following with [facility] for his dementia. Per his family his dementia symptoms seems to have worsen following his fall. 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 Per family he had a rough admission with jalen at [facility] in [place]. He was started on Seroquel at bedtime. [...] Cognition: - has underline dementia. Following with [facility], [facility]. Sleep: - He has been having issues [...] and cranio-cervical junction. Flow voids documented in [place] and dural venous sinuses. No [...] jaundice UE SAB EF EE WE WF [employer] R 5/5 5/5 5/5 5/5 5/5 5/5 L 5/5 5/5 5/5 5/5 5/5 5/5 LE HF KF KE PF DF R / 5/5 5/5 5/5 5/5 L 5/5 5/5 5/5 5/5 5/5 IMPRESSION: Estella Jeffery is a 59 year old male. PMHx of TBI and HDL. He had an unwitnessed fall (more content not included)... Normal [facility] LATIAESTELLA R ([id number]) 1965 M Date Time Provider Department 07/20/24 [...] all declined. The family requests transfer to [facility] inpatient service for further cognitive evaluation and management. It sounds like the patient is appropriately managed thus far and has no ongoing inpatient care needs. Thus, hospital to hospital transfer is not likely to be beneficial. We discussed the 3 neurorehab centers in our network. Referring MD will confirm with case supervisor that referrals were sent to all 3. If the patient is discharged home or to SNF, we can potentially expedite an appointment with our PMR colleagues/TBI multidisciplinary clinic. I will alert Drs. Aguilar and Earl to the referral. Janice Mcdermott MD Allergies As of Date: 07/20/2024 (No Known Allergies) Date Reviewed: 10/12/2022 Reviewed by: Miguelito Chicas APRN.CITY CONTROLLER - Fully Assessed Prescriptions as of 07/20/2024 [...] Status:Closed by JANICE MCDERMOTT on 07/20/24 Normal [facility] Patient Letter FTon 2024 Patient Letter [facility] [place] [facility] July 20, 2024 ESTELLA JEFFERY [address] [place] [phone] : 1965 Dear Mr. Jeffery, I am [...] Office Sincerely, Dr. Danni Graham [facility] [address] [place] [address] [facility] TANNER Virus Antibody Reflex to Inhibition Assayon 07-19-2024 Interpretation and review of laboratory results Abnormal [facility] TANNER virus Ab IA Ql Positive Abnormal [facility] Comment on above: NOTE Index interpretive [...] index.(1) (1) TYSABRI(natalizumab)US Prescribing Information Performed by: [employer] [address] [place] [address] Jessenia Bagley MD, PhD, TANNER Virus Index 2.94 High [facility] Comment on above: NOTE Performed by: [employer] [address] [place] [address] Jessenia Bagley MD, PhD, [facility] LATIAESTELLA ([id number]) 1965 M Date Time Provider Department 07/18/24 NARCISO GUERRAIND4 During your visit today, we recorded the following information about you: Benoit Gaby 07/18/2024 9:22 AM Signed Patient returned your call and can be reached at: Call patient at: on cell [phone] (home) [phone] (cell) Abbey Amato MA 07/18/2024 11:23 AM Signed Patient mailbox is full unable to leave message Roger Holland, MARCI 07/19/2024 12:42 PM Signed Spoke with Dr Harmon (sp?) from [facility] regarding patient. Family is requesting transfer to a [facility] TBI center, inpatient. I advised that Dr Guerra cannot assist in this matter. Leana Roca, RN 07/20/2024 3:19 PM Addendum Spoke to , Kari. Pt is currently at [facility]. Pt is being denied an admit to rehab facility. I am unable to view notes from that hospital. Suggestion given to try [facility] as [facility] does not have a TBI clinic. Family will have to work with staff at [facility]. Verbalized understanding. Allergies As of Date: 07/18/2024 (No Known Allergies) Date Reviewed: 10/12/2022 Reviewed by: Miguelito Chicas, SYD.CITY CONTROLLER - Fully Assessed Reason for Visit: Patient Question [[id number]] Prescriptions as of 07/20/2024 - donepezil (ARICEPT) [...] Status:Closed by LEANA ROCA on 07/20/24 Normal [facility] BASIC METABOLIC PANLon 07-17 Anion gap [Moles/Vol] 4 mmol/L Low 5-15 [facility] Comment on above: Performed By: #### 1 9123-9, 2777-, BMP, CBC, THYR #### [facility] ([id number]) [address], [address] [place] [address] Calcium [Mass/Vol] 8.8 mg/dL Normal 8.5-10.5 [facility] Comment on above: Performed By: #### 1 9123-9, 2777-, BMP, CBC, THYR #### [facility] ([id number]) [address], [address] [place] [address] Chloride [Moles/Vol] 104 mmol/L Normal 98-109 [facility] Comment on above: Performed By: #### 1 9123-9, 2777-, BMP, CBC, THYR #### [facility] ([id number]) [address], [address] [place] [address] CO2 [Moles/Vol] 33 mmol/L High 22-32 [facility] Comment on above: Performed By: #### 1 9123-9, 2777-, BMP, CBC, THYR #### [facility] ([id number]) [address] [address] [place] [address] Creatinine [Mass/Vol] 0.95 mg/dL Normal 0.60-1.30 [facility] Comment on above: Result Comment: METH OD TRACEABLE TO IDMS STANDARD Performed By: #### 1 9123-9, 277-, BMP, CBC, THYR #### [facility] ([id number]) [address] [address] [place] [address] eGFR (CKD-EPI) NON-RACE DEPENDENT >90 Normal >59 [facility] Comment on above: Result Comment: Reported eGFR is based on the CKD-EPI 2020 equation that does not use a race coefficient. Performed By: #### 1 9123-9, 277-, BMP, CBC, THYR #### [facility] ([id number]) [address] [address] [place] [address] Glucose [Mass/Vol] 97 mg/dL Normal 65-99 [facility] Comment on above: Performed By: #### 1 9123-9, 277-, BMP, CBC, THYR #### [facility] ([id number]) [address] [address] Potassium [Moles/Vol] 4.3 mmol/L Normal 3.5-5.0 [facility] Comment on above: Performed By: #### 1 9123-9, 277-, BMP, CBC, THYR #### [facility] ([id number]) [address] [address] [place] [address] Sodium [Moles/Vol] 141 mmol/L Normal 134-146 [facility] Comment on above: Performed By: #### 1 9123-9, 277-, BMP, CBC, THYR #### [facility] ([id number]) [address] [address] [place] [address] Urea nitrogen [Mass/Vol] 20 mg/dL Normal 5-23 [facility] Comment on above: Performed By: #### 1 9123-9, 2777-1, BMP, CBC, THYR #### [facility] ([id number]) [address] [facility] [place] [address] Basic Metabolic Panelon 06-21 Anion gap [Moles/Vol] 4 mmol/L Low 5 - 15 mmol/L [facility] Calcium [Mass/Vol] 8.8 mg/dL 8.5 - 10. 5 mg/dL [facility] Chloride [Moles/Vol] 104 mmol/L 98 - 10 9 mmol/L [facility] CO2 [Moles/Vol] 33 mmol/L High 22 - 32 mmol/L [facility] Creatinine [Mass/Vol] 0.95 mg/dL 0.60 - 1.30 mg/dL [facility] Comment on above: METHOD TRACEABLE TO [facility] STANDARD eGFR (CKD-EPI)non-race dependent - PINF [facility] Comment on above: Reported eGFR is based on the CKD-EPI 2020 equation that does not use a race coefficient. Glucose [Mass/Vol] 97 mg/dL 65 - 99 mg/dL [facility] Interpretation and review of laboratory results Abnormal [facility] Potassium [Moles/Vol] 4.3 mmol/L 3.5 - 5.0 mmol/L [facility] Sodium [Moles/Vol] 141 mmol/L 134 - 146 mmol/L [facility] Urea nitrogen [Mass/Vol] 20 mg/dL 5 - 23 mg/dL [facility] CBC AND AUTO DIFFon 07-17-19 25 ABSOLUTE BASOPHIL 0.0 X10E9/L Normal 0.0-0.2 [facility] Comment on above: Performed By: #### 1 9123-9, 2777-1, BMP, CBC, THYR #### [facility] ([id number]) [address] [facility] [place] [address] ABSOLUTE NEUTROPHIL 2.5 X10E9/L Normal 1.5-6.6 [facility] Comment on above: Performed By: #### 1 9123, 2776-06, BMP, CBC, THYR #### [facility] ([id number]) [address] [place] [address] Basophils/100 WBC (Bld) 0.6 % Normal [facility] Comment on above: Performed By: #### 1 9123-02, 2776-06, BMP, CBC, THYR #### [facility] ([id number]) [address] [address] Eosinophils (Bld) [#/Vol] 0.1 10*3/uL Normal 0.0-0.4 [facility] Comment on above: Performed By: #### 1 9123-02, 2776-06, BMP, CBC, THYR #### [facility] ([id number]) [address] [address] Eosinophils/100 WBC (Bld) 1.9 % Normal [facility] Comment on above: Performed By: #### 1 9123-02, 2776-06, BMP, CBC, THYR #### [facility] ([id number]) [address] [address] [place] [address] Erythrocyte distribution width (RBC) [Ratio] 15.8 % High 11.5-15.0 [facility] Comment on above: Performed By: #### 1 9123-02, 2776-06, BMP, CBC, THYR #### [facility] ([id number]) [address] [address] [place] [address] Hematocrit (Bld) [Volume fraction] 41.8 % Normal 39-49 [facility] Comment on above: Performed By: #### 1 9123-02, 2776-06, BMP, CBC, THYR #### [facility] ([id number]) [address] [address] [place] [address] Hemoglobin (Bld) [Mass/Vol] 13.9 g/dL Normal 13.0-17.0 [facility] Comment on above: Performed By: #### 1 9123-9, 27712-18, BMP, CBC, THYR #### [facility] ([id number]) [address] [place] [address] Lymphocytes (Bld) [#/Vol] 1.2 10*3/uL Normal 1.0-3.5 [facility] Comment on above: Performed By: #### 1 9122-, 2776-06, BMP, CBC, THYR #### [facility] ([id number]) [address] [facility] [address] [place] [address] Lymphocytes/100 WBC (Bld) 29.7 % Normal [facility] Comment on above: Performed By: #### 1 91, 27712-18, BMP, CBC, THYR #### [facility] ([id number]) [address] [place] [address] MCH (RBC) [Entitic mass] 25.1 pg Low 27-34 [facility] Comment on above: Performed By: #### 1 9123, 27712-18, BMP, CBC, THYR #### [facility] ([id number]) [address] [address] MCHC (RBC) [Mass/Vol] 33.2 g/dL Normal 32-36 [facility] Comment on above: Performed By: #### 1 9123-9, 27712-18, BMP, CBC, THYR #### [facility] ([id number]) [address] [place] [address] MCV (RBC) [Entitic vol] 76 fL Low 80-100 [facility] Comment on above: Performed By: #### 1 9123-9, 277-, BMP, CBC, THYR #### [facility] ([id number]) [address] [place] [address] Monocytes (Bld) [#/Vol] 0.3 10*3/uL Normal 0-0.9 [facility] Comment on above: Performed By: #### 1 91-, 27712-18, BMP, CBC, THYR #### [facility] ([id number]) [address] [facility] [address] [place] [address] Monocytes/100 WBC (Bld) 8.2 % Normal [facility] Comment on above: Performed By: #### 1 9123-02, 2776-06, BMP, CBC, THYR #### [facility] ([id number]) [address] [facility] [address] [place] [address] Neutrophils/100 WBC (Bld) 59.6 % Normal [facility] Comment on above: Performed By: #### 1 9123-02, 2776-06, BMP, CBC, THYR #### [facility] ([id number]) [address], [facility] [address] [place] [address] Platelet mean volume (Bld) [Entitic vol] 7.7 fL Normal 7-12 [facility] Comment on above: Performed By: #### 1 9123-02, 2776-06, BMP, CBC, THYR #### [facility] ([id number]) [address], [facility] [address] [place] [address] Platelets (Bld) [#/Vol] 180 10*3/uL Normal 150-450 [facility] Comment on above: Performed By: #### 1 9123-02, 2776-06, BMP, CBC, THYR #### [facility] ([id number]) [address], [facility] [address] [place] [address] RBC COUNT 5.54 X10E12/L Normal 4.10-5.70 [facility] Comment on above: Performed By: #### 1 91-, 2776-06, BMP, CBC, THYR #### [facility] ([id number]) [address] [facility], [address] [place] [address] WBC (Bld) [#/Vol] 4.1 10*3/uL Normal 4.0-11.0 [facility] Comment on above: Performed By: #### 1 9123-9, 2777-1, BMP, CBC, THYR #### [facility] ([id number]) [address], [address] [place] [address] CBC auto differentialon 06-21 Basophils (Bld) [#/Vol] 0 10*3/uL [facility] Basophils/100 WBC (Bld) 0.6 % [facility] Eosinophils (Bld) [#/Vol] 0.1 10*3/uL [facility] Eosinophils/100 WBC (Bld) 1.9 % [facility] Erythrocyte distribution width (RBC) [Ratio] 15.8 % High 11.5 - 15.0 % [facility] Hematocrit (Bld) [Volume fraction] 41.8 % 39 - 49 % [facility] Hemoglobin (Bld) [Mass/Vol] 13.9 g/dL 13.0 - 17.0 g/dL [facility] Interpretation and review of laboratory results Abnormal [facility] Lymphocytes (Bld) [#/Vol] 1.2 10*3/uL [facility] Lymphocytes/100 WBC (Bld) 29.7 % [facility] MCH (RBC) [Entitic mass] 25.1 pg Low 27 - 34 pg [facility] MCHC (RBC) [Mass/Vol] 33.2 g/dL 32 - 3 6 g/dL [facility] MCV (RBC) [Entitic vol] 76 fL Low 80 - 100 fL [facility] Monocytes (Bld) [#/Vol] 0.3 10*3/uL [facility] Monocytes/100 WBC (Bld) 8.2 % [facility] Neutrophils (Bld) [#/Vol] 2.5 10*3/uL [facility] Neutrophils/100 WBC (Bld) 59.6 % [facility] Platelet mean volume (Bld) [Entitic vol] 7.7 fL 7 - 12 fL [facility] Platelets (Bld) [#/Vol] 180 10*3/uL [facility] RBC (Bld) [#/Vol] 5.54 10*6/uL [facility] WBC corrected for nucl RBC Auto (Bld) [#/Vol] 4.1 [facility] CNPNon 07-17-2024 CNPN Telephone (NEIND4) ESTELLA JEFFERY ([id number]) 1965 M Date Time Provider Department 07/17/24 NARCISO GUERRA NEIND4 During your visit today, we recorded the following information about you: Gaby Laboy 07/17/2024 2:37 PM Signed Pt keila and is in [facility] and is requesting help with getting pt transferred to a [facility] facility Please call pts [phone] Roger Holland, MARCI 07/18/2024 8:58 AM Signed -LVMTCB We are unable to assist in this matter. Pt last seen 04/2022 Allergies As of Date: 07/17/2024 (No Known Allergies) Date Reviewed: 10/12/2022 Reviewed by: Miguelito Chicas, HISTORICAL GUIDE.CITY CONTROLLER - Fully Assessed Reason for Visit: Patient Question [8157] Prescriptions as of 07/18/2024 - donepezil (ARICEPT) [...] Status:Closed by ROGER HOLLAND on 07/18/24 Normal [facility] Encephalopathy - Autoimmune Eval, CSFon 07-17-2024 Encephalopathy autoimmune Ab panel (CSF) SEE COMMENTS 07/17/2024 05:00 PM [employer] Comment on above: NOTE Test Result Flag [...] developed and its performance characteristics determined by [facility] in a manner consistent with CLIA requirements. This test has not been cleared or approved by the U.S. Food and Drug Administration. Amphiphysin Ab, CSF Negative Negative ADDITIONAL INFORMATION This test was developed and its performance characteristics determined by [facility] in a manner consistent with CLIA requirements. This test has not been cleared or approved by the U.S. Food and Drug Administration. AGNA-1, CSF Negative Negative ADDITIONAL INFORMATION This test was developed and its performance characteristics determined by [facility] in a manner consistent with CLIA requirements. This test has not been cleared or approved by the U.S. Food and Drug Administration. MARKEL-1, CSF Negative Negative ADDITIONAL INFORMATION This test was developed and its performance characteristics determined by [facility] in a manner consistent with CLIA requirements. This test has not been cleared or approved by the U.S. Food and Drug Administration. MARKEL-2, CSF Negative Negative ADDITIONAL INFORMATION This test was developed and its performance characteristics determined by [facility] in a manner consistent with CLIA requirements. This test has not been cleared or approved by the U.S. Food and Drug Administration. MARKEL-3, CSF Negative Negative ADDITIONAL INFORMATION This test was developed and its performance characteristics determined by [facility] in a manner consistent with CLIA requirements. This test has not been cleared or approved by the U.S. Food and Drug Administration. CASPR2-IgG CBA, CSF Negative Negative ADDITIONAL INFORMATION This test was developed and its performance characteristics determined by [facility] in a manner consistent with CLIA requirements. This test has not been cleared or approved by the U.S. Food and Drug Administration. CRMP-5-IgG, CSF Negative Negative ADDITIONAL INFORMATION This test was developed and its performance characteristics determined by [facility] in a manner consistent with CLIA requirements. This test has not been cleared or approved by the U.S. Food and Drug Administration. DPPX Ab CBA, CSF Negative Negative ADDITIONAL INFORMATION This test was developed and its performance characteristics determined by [facility] in a manner consistent with CLIA requirements. This test has not been cleared or approved by the U.S. Food and Drug Administration. NICOLE-B-R Ab CBA, CSF Negative Negative ADDITIONAL INFORMATION This test was developed and its performance characteristics determined by [facility] in a manner consistent with CLIA requirements. This test has not been cleared or approved by the U.S. Food and Drug Administration. GAD65 Ab Assay, CSF 0.00 nmol/L <= 0.02 ADDITIONAL INFORMATION This test was developed and its performance characteristics determined by [facility] in a manner consistent with CLIA requirements. This test has not been cleared or approved by the U.S. Food and Drug Administration. GFAP IFA, CSF Negative Negative ADDITIONAL INFORMATION This test was developed and its performance characteristics determined by [facility] in a manner consistent with CLIA requirements. This test has not been cleared or approved by the U.S. Food and Drug Administration. mGluR1 Ab IFA, CSF (more content not included)... Encephalopathy autoimmune Ab panel (CSF)on 07-17-2024 [facility] MAGNESIUMon 07-17-2024 Magnesium [Mass/Vol] 2.2 mg/dL Normal 1.8-2.6 [facility] Comment on above: Performed By: #### 1 9123-9, 2777-1, BMP, CBC, THYR #### [facility] ([id number]) [address], [address] [place] [address] Magnesiumon 07-17-2024 Magnesium [Mass/Vol] 2.2 mg/dL 1.8 - 2 .6 mg/dL [facility] No Panel Informationon 07-17 [facility] Bacteria identified Cx Nom ( CSF)on 07-15-2024 Microscopic observation Gram stain Nom (Unsp spec) WHITE BLOOD CELLS PRESENT [facility] Microscopic observation Gram stain Nom (Unsp spec) NO ORGANISMS SEEN [facility] Microscopic observation Gram stain Nom (Unsp spec) ON CONCENTRATED SMEAR [facility] Service comment (Unsp spec) [Interp] NO GROWTH 5 DAYS [facility] Flow Cytometry CSFon 025 Flow cytometry specialist review Ramone (Unsp spec) [Interp] SEE SEPARATE REPORT, REVIEWED BY PATHOLOGIST [facility] Flow cytometry specialist re view Ramone (Unsp spec) [Interp]on 2024 [facility] Lyme SLAG SKIMMER Infection IgG w/ An tibody Index Reflex, CSF and Serumon 07-13-2024 Pathologist interpretation (Bld) [Interp] See Note [facility] Comment on above: NOTE No antibodies to [...] developed and its performance characteristics determined by [facility] in a manner consistent with CLIA requirements. This test has not been cleared or approved by the U.S. Food and Drug Administration. Reference Lab Test ID Negative Negative [facility] Reference Lab Test ID See Note [facility] [employer] [facility] Comment on above: NOTE CSF screen was negative for IgG-class antibodies to Lyme Borrelia species. Testing for IgG-class antibodies to Borrelia in serum is not indicated and was not performed. Test Performed by: [facility] [address] [place] [address] Battery Container Tester: Eduardo Clark Ph.D.; CLIA# [id number] [facility] Cytologyon 07-11-2024 [facility] [address] [place] [address] Cytology Consultation Patient Name:ESTELLA JEFFERY:1965 (Age: 58)Gender:MTaken:06/21Reported:2024 16:49Physician(s):Shun Haley M.D. ([phone])Copy To:Quinton Harrell M.D. Rec. #:[id number]: #[id number] Final Cytologic Diagnosis Cerebrospinal fluid: No malignant cells identified. gr/07/11/2024 Interpretation performed at [facility], [address] [place] [address], License number: [id number].Electro nically Signed Out By Derick Lorenz MD Additional Report(s): Flow Cytometry-Surg/BM/NG Date Reported: 07/13/2024 No flow cytometric abnormalities. The specimen is hypocellular with a sparse lymphoid component. Immunophenotypic analysis of the lymphoid cells demonstrates a mixed population of few phenotypically unremarkable T-cells and polyclonal B-cells. No monoclonal lymphoid population is detected. Immunophenotyping antibodies tested: CD3, CD4, CD5, CD7, CD8, CD19, CD20, CD45, Samoset, and Lambda. Immunophenotyping Comment: Immunophenotyping has been used in this diagnostic evaluation. This test was developed and its performance characteristics determined by the [facility] Department. It has not been [...] perform high-complexity clinical testing. Interpretation performed at [facility], [address] [place], [place] [address], License number: [id number]. 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 Also received is one cytospin slide from Hematology. Source of Specimen Cerebrospinal fluid Non SHOT HOLE SHOOTER ThinPrep, Cytospin Slide Fee Code(s): 1; 09792, 88268 [facility] [employer] IgG synthesis rate Calc (S+C SF) [Mass/Time]on 07-11-2024 CSF IgG Index Profile SEE COMMENTS 07/11/2024 12:55 PM [employer] Comment on above: NOTE Test Result Flag [...] mg/dL 3500 - 5000 Test Performed by: [facility] [address] [place] [address] Battery Container Tester: Eduardo Clark Ph.D.; CLIA# [id number] Test Performed by: [facility] [address] [place] [address] Battery Container Tester: Eduardo Clark Ph.D.; CLIA# [id number] [facility] Reagin Ab VDRL Ql (CSF)on [facility] VDRL, Spinal Fluidon 025 Reagin Ab VDRL Ql (CSF) Negative Negative [facility] Comment on above: NOTE Test Performed by: [facility] [address] [place] [address] Battery Container Tester: Eduardo Clark Ph.D.; CLIA# [id number] 14-3-3 Protein Tau, Total, C SFon 07-10-2024 Creutzfeldt-Osei Disease SEE NOTE Normal [facility] Comment on above: Result Comment: NOTE [...] thorough examination of autopsy brain tissue. The [facility] is able to offer a no-cost autopsy for this patient. Autopsy can help to delineate whether prion disease is sporadic, acquired or genetic in etiology. [facility] staff ([phone]) are available to work with healthcare providers and the patient's family to plan an autopsy, if desired. Reviewed and Approved By: Tia Weinberg, PhD Performed By: [facility] [address] [place] [address] Performed By: #### 1 9123-9, 2777-1, BMP, CBC, THYR #### [facility] ([id number]) [address] [place] [address], [address] [place] [address] CSF CULTUREon 07-10-2024 Bacteria identified Cx Nom (CSF) GRAM STAIN WHITE BLOOD CELLS PRESENT NO ORGANISMS SEEN ON CONCENTRATED SMEAR CULTURE RESULTS NO GROWTH 5 DAYS Normal [facility] Comment on above: Performed By: #### 1 9123-9, 2777-1, BMP, CBC, THYR #### [facility] ([id number]) [address] [place] [address], [address] [place] [address] CSF spinal fluid cell counto n 07-10-2024 Clarity (CSF) CLEAR [facility] Color (CSF) COLORLESS [facility] Color (Spun CSF) COLORLESS [facility] Differential panel (Dial fld) NUCLEATED CELLS <5/uL; DIFF NOT TESTED [facility] Interpretation and review of laboratory results Abnormal [facility] Laboratory comment Ramone (Report) TUBE 3 [facility] Nucleated cells Manual cnt (CSF) [#/Vol] 0.001 10*3/uL 0 - 5 /uL [facility] RBC Manual cnt (CSF) [#/Vol] 48 /uL High 0 - 1 /uL [facility] Csf total proteinon 07-10-19 Protein (CSF) [Mass/Vol] 45 mg/dL 15 - 45 mg/dL [facility] Cytologyon 07-10-2024 Cytology Normal [facility] Comment on above: Result Comment: [facility] [address] [place] [address] Cytology Consultation Patient Name:ESTELLA JEFFERY:1965 (Age: 58)Gender:MTaken:07/10/2024Reported:07/11/2024 16:49Physician(s):Arnulfo Haley M.D. ([phone])Copy To:Quinton Harrell M.D. Rec. #:[id number]: #[id number] Final Cytologic Diagnosis Cerebrospinal fluid: No malignant cells identified. 07/11/2024 Interpretation performed at [facility], [address] [place] [address], License number: [id number].Electronically Signed Out By Derick Lorenz MD Additional Report(s): Flow Cytometry-Surg/BM/NG Date Reported: 07/13/2024 No flow cytometric abnormalities. The specimen is hypocellular with a sparse lymphoid component. Immunophenotypic analysis of the lymphoid cells demonstrates a mixed population of few phenotypically unremarkable T-cells and polyclonal B-cells. No monoclonal lymphoid population is detected. Immunophenotyping antibodies tested: CD3, CD4, CD5, CD7, CD8, CD19, CD20, CD45, Samoset, and Lambda. Immunophenotyping Comment: Immunophenotyping has been used in this diagnostic evaluation. This test was developed and its performance characteristics determined by the [facility]. It has not been [...] perform high-complexity clinical testing. Interpretation performed at [facility], [address] [place] [address], License number: [id number]. 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 Also received is one cytospin slide from Hematology. Source of Specimen Cerebrospinal fluid Non SHOT HOLE SHOOTER ThinPrep, Cytospin Slide Fee Code(s): 1; 92470, 37763 Encephalopathy autoimmune Ab panel (CSF)on 07-10-2024 ENCEPHALOPATHY-AUTOIM MUNE EVAL - CSF SEE COMMENTS 07/17/2024 05:00 PM Normal [facility] Comment on above: Result Comment: NOTE Test [...] developed and its performance characteristics determined by [facility] in a manner consistent with CLIA requirements. This test has not been cleared or approved by the U.S. Food and Drug Administration. Amphiphysin Ab, CSF Negative Negative ADDITIONAL INFORMATION This test was developed and its performance characteristics determined by [facility] in a manner consistent with CLIA requirements. This test has not been cleared or approved by the U.S. Food and Drug Administration. AGNA-1, CSF Negative Negative ADDITIONAL INFORMATION This test was developed and its performance characteristics determined by [facility] in a manner consistent with CLIA requirements. This test has not been cleared or approved by the U.S. Food and Drug Administration. MARKEL-1, CSF Negative Negative ADDITIONAL INFORMATION This test was developed and its performance characteristics determined by [facility] in a manner consistent with CLIA requirements. This test has not been cleared or approved by the U.S. Food and Drug Administration. MARKEL-2, CSF Negative Negative ADDITIONAL INFORMATION This test was developed and its performance characteristics determined by [facility] in a manner consistent with CLIA requirements. This test has not been cleared or approved by the U.S. Food and Drug Administration. MARKEL-3, CSF Negative Negative ADDITIONAL INFORMATION This test was developed and its performance characteristics determined by [facility] in a manner consistent with CLIA requirements. This test has not been cleared or approved by the U.S. Food and Drug Administration. CASPR2-IgG CBA, CSF Negative Negative ADDITIONAL INFORMATION This test was developed and its performance characteristics determined by [facility] in a manner consistent with CLIA requirements. This test has not been cleared or approved by the U.S. Food and Drug Administration. CRMP-5-IgG, CSF Negative Negative ADDITIONAL INFORMATION This test was developed and its performance characteristics determined by [facility] in a manner consistent with CLIA requirements. This test has not been cleared or approved by the U.S. Food and Drug Administration. DPPX Ab CBA, CSF Negative Negative ADDITIONAL INFORMATION This test was developed and its performance characteristics determined by [facility] in a manner consistent with CLIA requirements. This test has not been cleared or approved by the U.S. Food and Drug Administration. NICOLE-B-R Ab CBA, CSF Negative Negative ADDITIONAL INFORMATION This test was developed and its performance characteristics determined by [facility] in a manner consistent with CLIA requirements. This test has not been cleared or approved by the U.S. Food and Drug Administration. GAD65 Ab Assay, CSF 0.00 nmol/L <= 0.02 ADDITIONAL INFORMATION This test was developed and its performance characteristics determined by [facility] in a manner consistent with CLIA requirements. This test has not been cleared or approved by the U.S. Food and Drug Administration. GFAP IFA, CSF Negative Negative ADDITIONAL INFORMATION This test was developed and its performance characteristics determined by [facility] in a manner consistent with CLIA requirements. This test has not been cleared or approved by the U.S. Food and Drug Administration. mGluR1 Ab IFA, CSF Negative Negative ADDITIONAL INFORMATION This test was developed and its performance characteristics determined by [facility] in a manner consistent with CLIA requirements. This test has not been cleared or approved by the U.S. Food and Drug Administration. IgLON5 CBA, CSF Negative Negative ADDITIONAL INFORMATION This test was developed and its performance characteristics determined by [facility] in a manner consistent with CLIA requirements. This test has not been cleared or approve (more content not included)... Performed By: #### 1 9123-9, 2777-1, BMP, CBC, THYR #### [facility] ([id number]) [address], [address] [place] [address] Flow cytometry specialist re view Ramone (Unsp spec) [Interp]on 07-10-2024 FLOW CYTOMETRY CSF SEE SEPARATE REPORT, REVIEWED BY PATHOLOGIST Normal [facility] Comment on above: Performed By: #### 1 9123-9, 2777-1, BMP, CBC, THYR #### [facility] ([id number]) [address], [address] [place] [address] Glucose (CSF) [Mass/Vol]on 0 07-10-2024 CSF GLUCOSE 66 mg/dL Normal 40-70 [facility] Comment on above: Performed By: #### 1 9123-9, 2777-1, BMP, CBC, THYR #### [facility] ([id number]) [address], [address] [place] [address] Glucose, CSFon 07-10-2024 Glucose (CSF) [Mass/Vol] 66 mg/dL 40 - 70 mg/dL [facility] LYME SLAG SKIMMER Infection IgG w/ An tibody Index Reflex, CSF and Serumon 07-10-2024 LYME SLAG SKIMMER IGG INTERP. See Note Normal [facility] Comment on above: Result Comment: NOTE No [...] developed and its performance characteristics determined by [facility] in a manner consistent with CLIA requirements. This test has not been cleared or approved by the U.S. Food and Drug Administration. LYME SLAG SKIMMER IGG, CSF Negative Normal Negative [facility] LYME SLAG SKIMMER IGG, SERUM See Note Normal [facility] Comment on above: Result Comment: NOTE CSF screen was negative for IgG-class antibodies to Lyme Borrelia species. Testing for IgG-class antibodies to Borrelia in serum is not indicated and was not performed. Test Performed by: [facility] [address] [place] [address] Battery Container Tester: Eduardo Clark Ph.D.; CLIA# [id number] Lumbar Punctureon 07-10-2024 Arnulfo Haley MD 07/10/2024 [...] to verify the correct patient, procedure, equipment, director of sales support and site/side marked as required. Anesthesia: local infiltration Anesthesia: Local Anesthetic: lidocaine 1% without epinephrine Sedation: Patient sedated: yes Lumbar space: L3-L4 interspace Patient's position: left lateral decubitus Opening pressure: 12 cm H2O Fluid appearance: clear Tubes of fluid: 4 Total volume: 17.5 ml Post-procedure: pressure dressing applied and adhesive bandage applied Procedure was completed Complications: none MANUALLY TRANSCRIBED RESULTS [facility] MENINGITIS PANELon 5 Meningitis+Encephalit is pathogens [...] detected (qualifier value) Normal NDET [facility] Comment on above: Performed By: #### 1 9123-9, 2777-1, BMP, CBC, THYR #### [facility] ([id number]) [address], [address] [place] [address] MR BRAIN W WO CONTon 025 MR BRAIN W WO CONT MR BRAIN W WO CONT STUDY: MRI brain with without contrast . CLINICAL HISTORY: Mental status change, unknown cause COMPARISON: July 03, 2024 brain MRI from [facility] Procedure: Multiplanar, multisequence imaging performed through [...] and cranio-cervical junction. Flow voids documented in [place] and dural venous sinuses. No [...] on 07/10/2024 11:31 AM Normal [facility] MR Brain WO and W contrast I Von 07-10-2024 STUDY: MRI brain with without contrast . CLINICAL HISTORY: Mental status change, unknown cause COMPARISON: July 03, 2024 brain MRI from [facility] Procedure: Multiplanar, multisequence imaging performed through [...] and cranio-cervical junction. Flow voids documented in [place] and dural venous sinuses. No [...] Wilson Lu MD on 07/10/2024 11:31 AM [facility] Wilson Lu MD - 07/10/2024 STUDY: MRI brain with without contrast . CLINICAL HISTORY: Mental status change, unknown cause COMPARISON: July 03, 2024 brain MRI from [facility] Procedure: Multiplanar, multisequence imaging performed through [...] and cranio-cervical junction. Flow voids documented in [place] and dural venous sinuses. No [...] MD on 07/10/2024 11:31 AM [facility] Rad[facility] Study observation (narrative) [facility] MR Brain WO and W contrast I VOrdered By: Wilson Lu on 07-10-2024 [facility] Work Phone: Meningitis+Encephalitis path ogens DNA and RNA panel LILLIANA+non-probe (CSF)on 07-10-2024 C. gattii+neoformans DNA LILLIANA+non-probe Ql (CSF) Not detected Not Detected^No t Detected [facility] CMV DNA LILLIANA+non-probe Ql (CSF) Not detected Not Detected^No t Detected [facility] E. coli K1 DNA LILLIANA+non-probe Ql (CSF) Not detected Not Detected^No t Detected [facility] Enterovirus RNA LILLIANA+non-probe Ql (CSF) Not detected Not Detected^No t Detected [facility] H. influenzae DNA LILLIANA+non-probe Ql (CSF) Not detected Not Detected^No t Detected [facility] HHV 6 DNA LILLIANA+non-probe Ql (CSF) Not detected Not Detected^No t Detected [facility] HSV 1 DNA LILLIANA+non-probe Ql (CSF) Not detected Not Detected^No t Detected [facility] HSV 2 DNA LILLIANA+non-probe Ql (CSF) Not detected Not Detected^No t Detected [facility] L. monocytogenes DNA LILLIANA+non-probe Ql (CSF) Not detected Not Detected^No t Detected [facility] N. meningitidis DNA LILLIANA+non-probe Ql (CSF) Not detected Not Detected^No t Detected [facility] Parechovirus A RNA LILLIANA+non-probe Ql (CSF) Not detected Not Detected^No t Detected [facility] S. agalactiae DNA LILLIANA+non-probe Ql (CSF) Not detected Not Detected^No t Detected [facility] S. pneumoniae DNA LILLIANA+non-probe Ql (CSF) Not detected Not Detected^No t Detected [facility] Specimen source Nom (Body fld) CEREBROSPINAL FLUID [facility] VZV DNA LILLIANA+non-probe Ql (CSF) Not detected Not Detected^No t Detected [facility] No Panel Informationon 07-10 [facility] Protein (CSF) [Mass/Vol]on 0 07-10-2024 CSF TOTAL PROTEIN 45 mg/dL Normal 15-45 [facility] Comment on above: Performed By: #### 1 9123-9, 2777-1, BMP, CBC, THYR #### [facility] ([id number]) [address], [address] [place] [address] Reagin Ab VDRL Ql (CSF)on VDRL, Spinal Fluid Negative Normal Negative [facility] Comment on above: Result Comment: NOTE Test Performed by: [facility] [address] [place] [address] Battery Container Tester: Eduardo Clark Ph.D.; CLIA# [id number] Performed By: #### 1 91-9, 277-, BMP, CBC, THYR #### [facility] ([id number]) [address], [address] [place] [address] SPINAL FLUID CELL CTon 07-10 CSF CLARITY CLEAR Normal [facility] Comment on above: Performed By: #### 1 9123-9, 277-, BMP, CBC, THYR #### [facility] ([id number]) [address], [address] [place] [address] CSF COLOR COLORLESS Normal [facility] Comment on above: Performed By: #### 1 9123-9, 277-, BMP, CBC, THYR #### [facility] ([id number]) [address], [address] [place] [address] CSF COMMENT TUBE 3 Normal [facility] Comment on above: Performed By: #### 1 9123-9, 2777-1, BMP, CBC, THYR #### [facility] ([id number]) [address], [address] [place] [address] CSF NUCLEATED CELLS 1 /uL Normal 0-5 [facility] Comment on above: Performed By: #### 1 9123-9, 2777-1, BMP, CBC, THYR #### [facility] ([id number]) [address], [address] [place] [address] CSF RBC 48 /uL High 0-1 [facility] Comment on above: Performed By: #### 1 9123-9, 2777-1, BMP, CBC, THYR #### [facility] ([id number]) [address], [address] [place] [address] CSF SUPERNATANT COLORLESS Normal [facility] Comment on above: Performed By: #### 1 9123-9, 2777-, BMP, CBC, THYR #### [facility] ([id number]) [address], [address] [place] [address] SF DIFF NUCLEATED CELLS <5/uL; DIFF NOT TESTED Normal [facility] Comment on above: Performed By: #### 1 9123-9, 2777-1, BMP, CBC, THYR #### [facility] ([id number]) [address], [address] [place] [address] B. burgdorferi IgG+IgM Qn (S )on 07-09-2024 [facility] ECG 12 leadon 07-09-2024 TRACEMASTERVUE [facility] IgG synthesis rate Calc (S+C SF) [Mass/Time]on 07-09-2024 CSF IgG Index Profile SEE COMMENTS 07/11/2024 12:55 PM Normal [facility] Comment on above: Result Comment: NOTE Test [...] mg/dL 3500 - 5000 Test Performed by: [facility] [address] [place] [address] Battery Container Tester: Eduardo Clark Ph.D.; CLIA# [id number] Test Performed by: [facility] [address] [place] [address] Battery Container Tester: Eduardo Clark Ph.D.; CLIA# [id number] TANNER Virus Antibody W/Reflexon 07-09-2024 TANNER Virus Antibody Positive Abnormal [facility] Comment on above: Result Comment: [...] index.(1) (1) TYSABRI(natalizumab)US Prescribing Information Performed by: [employer] [address] [place] [address] I Yudi PEÑA, PhD, TANNER Virus Index 2.94 [facility] Comment on above: Result Comment: NOTE Performed by: [employer] [address] [place] [address] Jessenia Bagley MD, PhD, Laboratory comment Ramone (Repo rt)on 07-09-2024 [facility] UNLISTED LAB TEST Sent to reference lab Normal [facility] Lyme Totalon 07-09-2024 B. burgdorferi IgG+IgM Qn (S) A1 NINF - 0.9 A1 [facility] Comment on above: Interpretation-------- <0.9 Negative 0.9 [...] time] 1.1 {INR} Normal 0.8-1.1 [facility] Comment on above: Performed By: #### 1 9123-9, 2777-1, BMP, CBC, THYR #### [facility] ([id number]) [address] [facility], [address] [place] [address] PT Coag (PPP) [Time] 12.4 s Normal 9.8-13.2 [facility] Comment on above: Performed By: #### 1 9123-9, 2777-1, BMP, CBC, THYR #### [facility] ([id number]) [address], [address] [place] [address] Protime & INRon 07-09-2024 INR Coag (PPP) [Relative time] 1.1 {INR} [facility] PT Coag (PPP) [Time] 12.[address] [facility] Syphilis Total(Unknown Syphi lis Status)on 07-09-2024 T. pallidum IgG+IgM IA Ql (S) [facility] Comment on above: NON REACTIVE No serologic evidence of infection to Treponema pallidum (syphilis). Repeat testing may be considered in patients with suspected acute or primary syphilis in 2 to 4 weeks. T. pallidum IgG+IgM IA Ql (S )on 07-09-2024 [facility] Unlisted Lab Test TANNER viruson 07-09-2024 Laboratory comment Ramone (Report) Sent to reference lab [facility] AMMONIAon 07-08-2024 Ammonia (P) [Moles/Vol] 40 umol/L Normal 18-72 [facility] Comment on above: Result Comment: SPEC IMEN HEMOLYZED, RESULTS INCREASED SLIGHTLY HEMOLYZED NEW REFERENCE RANGE Performed By: #### 1 9123-9, 2777-, BMP, CBC, THYR #### [facility] ([id number]) [address], [address] [place] [address] Ammoniaon 07-08-2024 Ammonia (P) [Moles/Vol] 40 umol/L 18 - 72 umol/L [facility] Comment on above: SPECIMEN HEMOLYZED, RESULTS INCREASED SLIGHTLY HEMOLYZED NEW REFERENCE RANGE Ammonia (P) [Moles/Vol]on [facility] BASIC METABOLIC PANLon 07-08 Anion gap [Moles/Vol] 6 mmol/L Normal 5-15 [facility] Comment on above: Performed By: #### 1 9123-9, 277-, BMP, CBC, THYR #### [facility] ([id number]) [address], [address] [place] [address] Calcium [Mass/Vol] 8.3 mg/dL Low 8.5-10.5 [facility] Comment on above: Performed By: #### 1 9123-9, 2777-1, BMP, CBC, THYR #### [facility] ([id number]) [address], [address] [place] [address] Chloride [Moles/Vol] 107 mmol/L Normal 98-109 [facility] Comment on above: Performed By: #### 1 9123-9, 2777-, BMP, CBC, THYR #### [facility] ([id number]) [address], [address] [place] [address] CO2 [Moles/Vol] 29 mmol/L Normal 22-32 [facility] Comment on above: Performed By: #### 1 9123-9, 2777-1, BMP, CBC, THYR #### [facility] ([id number]) [address], [address] [place] [address] Creatinine [Mass/Vol] 0.91 mg/dL Normal 0.60-1.30 [facility] Comment on above: Result Comment: METH OD TRACEABLE TO IDMS STANDARD Performed By: #### 1 9123-9, 2777-, BMP, CBC, THYR #### [facility] ([id number]) [address], [address] [place] [address] eGFR (CKD-EPI) NON-RACE DEPENDENT >90 Normal >59 [facility] Comment on above: Result Comment: Reported eGFR is based on the CKD-EPI 2020 equation that does not use a race coefficient. Performed By: #### 1 9123-9, 2777-, BMP, CBC, THYR #### [facility] ([id number]) [address], [address] [place] [address] Glucose [Mass/Vol] 91 mg/dL Normal 65-99 [facility] Comment on above: Performed By: #### 1 9123-9, 2777-, BMP, CBC, THYR #### [facility] ([id number]) [address], [address] [place] [address] Potassium [Moles/Vol] 4.1 mmol/L Normal 3.5-5.0 [facility] Comment on above: Performed By: #### 1 9123-9, 2777-, BMP, CBC, THYR #### [facility] ([id number]) [address], [address] [place] [address] Sodium [Moles/Vol] 142 mmol/L Normal 134-146 [facility] Comment on above: Performed By: #### 1 9123-9, 2777-1, BMP, CBC, THYR #### [facility] ([id number]) [address], [address] [place] [address] Urea nitrogen [Mass/Vol] 22 mg/dL Normal 5-23 [facility] Comment on above: Performed By: #### 1 9123-9, 2777-1, BMP, CBC, THYR #### [facility] ([id number]) [address], [address] [place] [address] Basic Metabolic Panelon 06-20 Anion gap [Moles/Vol] 6 mmol/L 5 - 15 mmol/L [facility] Calcium [Mass/Vol] 8.3 mg/dL Low 8.5 - 10. 5 mg/dL [facility] Chloride [Moles/Vol] 107 mmol/L 98 - 10 9 mmol/L [facility] CO2 [Moles/Vol] 29 mmol/L 22 - 32 mmol/L [facility] Creatinine [Mass/Vol] 0.91 mg/dL 0.60 - 1.30 mg/dL [facility] Comment on above: METHOD TRACEABLE TO IDTN STANDARD eGFR (CKD-EPI)non-race dependent - PINF [facility] Comment on above: Reported eGFR is based on the CKD-EPI 2020 equation that does not use a race coefficient. Glucose [Mass/Vol] 91 mg/dL 65 - 99 mg/dL [facility] Interpretation and review of laboratory results Abnormal [facility] Potassium [Moles/Vol] 4.1 mmol/L 3.5 - 5.0 mmol/L [facility] Sodium [Moles/Vol] 142 mmol/L 134 - 146 mmol/L [facility] Urea nitrogen [Mass/Vol] 22 mg/dL 5 - 23 mg/dL [facility] CBC without diffon Erythrocyte distribution width (RBC) [Ratio] 15.6 % High 11.5 - 15.0 % [facility] Hematocrit (Bld) [Volume fraction] 39.1 % 39 - 49 % [facility] Hemoglobin (Bld) [Mass/Vol] 12.7 g/dL Low 13.0 - 17.0 g/dL [facility] Interpretation and review of laboratory results Abnormal [facility] MCH (RBC) [Entitic mass] 24.5 pg Low 27 - 34 pg [facility] MCHC (RBC) [Mass/Vol] 32.5 g/dL 32 - 3 6 g/dL [facility] MCV (RBC) [Entitic vol] 75 fL Low 80 - 100 fL [facility] Platelet mean volume (Bld) [Entitic vol] 8.6 fL 7 - 12 fL [facility] Platelets (Bld) [#/Vol] 154 10*3/uL [facility] RBC (Bld) [#/Vol] 5.19 10*6/uL [facility] WBC corrected for nucl RBC Auto (Bld) [#/Vol] 4.1 [facility] COMPLETE BLOOD COUNTon 07-08 Erythrocyte distribution width (RBC) [Ratio] 15.6 % High 11.5-15.0 [facility] Comment on above: Performed By: #### 1 9123-9, 2777-1, BMP, CBC, THYR #### [facility] ([id number]) [address], [address] [place] [address] Hematocrit (Bld) [Volume fraction] 39.1 % Normal 39-49 [facility] Comment on above: Performed By: #### 1 9123-9, 2777-1, BMP, CBC, THYR #### [facility] ([id number]) [address], [address] [place] [address] Hemoglobin (Bld) [Mass/Vol] 12.7 g/dL Low 13.0-17.0 [facility] Comment on above: Performed By: #### 1 9123-9, 2777-1, BMP, CBC, THYR #### [facility] ([id number]) [address], [address] [place] [address] MCH (RBC) [Entitic mass] 24.5 pg Low 27-34 [facility] Comment on above: Performed By: #### 1 91-9, 27712-18, BMP, CBC, THYR #### [facility] ([id number]) [address], [facility] [address] [place] [address] MCHC (RBC) [Mass/Vol] 32.5 g/dL Normal 32-36 [facility] Comment on above: Performed By: #### 1 9122-, 2776-06, BMP, CBC, THYR #### [facility] ([id number]) [address], [facility] [address] [place] [address] MCV (RBC) [Entitic vol] 75 fL Low 80-100 [facility] Comment on above: Performed By: #### 1 9123-02, 2776-06, BMP, CBC, THYR #### [facility] ([id number]) [address], [facility] [address] [place] [address] Platelet mean volume (Bld) [Entitic vol] 8.6 fL Normal 7-12 [facility] Comment on above: Performed By: #### 1 9123-, 27712-18, BMP, CBC, THYR #### [facility] ([id number]) [address], [facility] [address] [place] [address] Platelets (Bld) [#/Vol] 154 10*3/uL Normal 150-450 [facility] Comment on above: Performed By: #### 1 9123-, 27712-18, BMP, CBC, THYR #### [facility] ([id number]) [address], [facility] [address] [place] [address] RBC COUNT 5.19 X10E12/L Normal 4.10-5.70 [facility] Comment on above: Performed By: #### 1 91-, 2777-1, BMP, CBC, THYR #### [facility] ([id number]) [address], [address] [place] [address] WBC (Bld) [#/Vol] 4.1 10*3/uL Normal 4.0-11.0 [facility] Comment on above: Performed By: #### 1 9123-9, 2777-1, BMP, CBC, THYR #### [facility] ([id number]) [address], [address] [place] [address] Cobalamin (Vitamin B12) [Mas s/Vol]on 07-08-2024 [facility] 07-08-2024 Images from [...] MD, PhD Neurology/Clinical Neurophysiology MANUALLY TRANSCRIBED RESULTS [facility] Folateon 07-08-2024 Folate [Mass/Vol] 10.2 ng/mL 5.8 - PINF ng/mL [facility] Comment on above: NEW REFERENCE RANGE Folate [Mass/Vol]on 07-08-19 [facility] FOLIC ACID 10.2 ng/mL Normal >5.8 [facility] Comment on above: Result Comment: NEW REFERENCE RANGE Performed By: #### 1 9123-9, 2777-1, BMP, CBC, THYR #### [facility] ([id number]) [address] [place] [address], [address] [place] [address] HIV 1&2 AB/AG Screen (P24 AG )on 07-08-2024 HIV 1+2 Ab+HIV1 p24 Ag IA Ql Non-Reactive Non-Reactiv e^Non-React deirdre [facility] Comment on above: NEW TEST METHOD NOTE [...] Ab+HIV1 p24 Ag IA Ql on 07-08-2024 [facility] HIV 1 and 2 Ab/Ag Screen Non-Reactive Normal NRCT [facility] Comment on above: Result Comment: NEW TEST [...] 1 9123-9, 2777-1, BMP, CBC, THYR #### [facility] ([id number]) [address], [address] [place] [address] VITAMIN B12on 07-08-2024 Cobalamin (Vitamin B12) [Mass/Vol] 526 pg/mL Normal 180-914 [facility] Comment on above: Performed By: #### 1 9123-9, 2777-1, BMP, CBC, THYR #### [facility] ([id number]) [address], [address] [address] Vitamin B12on 07-08-2024 Cobalamin (Vitamin B12) [Mass/Vol] 526 pg/mL 180 - 914 pg/mL [facility] B. burgdorferi IgG+IgM Qn (S )on 07-07-2024 LYME TOTAL <0.2 Normal <0.9 [facility] Comment on above: Result Comment: Interpretation-------- <0.9 Negative 0.9 - 1.0 Equivocal >1.0 Positive No serological evidence of Borrelia infection.A non-reactive result does not exclude the possibility of Borrelia infection and cannot exclude early infection with B.burgdorferi. If Lyme borreliosis is suspected, a second sample should be collected and tested 2-4 weeks later. Performed By: #### 3 4148-7, 74195-2, BMP, CBC #### [facility] ([id number]) [address], [address] [place] [address] BASIC METABOLIC PANLon 07-07 Anion gap [Moles/Vol] 8 mmol/L Normal 5-15 [facility] Comment on above: Performed By: #### 3 4148-7, 98746-2, BMP, CBC #### [facility] ([id number]) [address], [address] [place] [address] Calcium [Mass/Vol] 8.8 mg/dL Normal 8.5-10.5 [facility] Comment on above: Performed By: #### 3 4148-7, 29983-3, BMP, CBC #### [facility] ([id number]) [address], [address] [place] [address] Chloride [Moles/Vol] 107 mmol/L Normal 98-109 [facility] Comment on above: Performed By: #### 3 4148-7, 46964-6, BMP, CBC #### [facility] ([id number]) [address], [address] [place] [address] CO2 [Moles/Vol] 30 mmol/L Normal 22-32 [facility] Comment on above: Performed By: #### 3 4148-7, 33996-0, BMP, CBC #### [facility] ([id number]) [address], [address] [address] Creatinine [Mass/Vol] 1.00 mg/dL Normal 0.60-1.30 [facility] Comment on above: Result Comment: METH OD TRACEABLE TO IDMS STANDARD Performed By: #### 3 4148-7, 21540-3, BMP, CBC #### [facility] ([id number]) [address], [address] [place] [address] GFR/1.73 sq M.predicted among non-blacks MDRD (S/P/Bld) [Vol rate/Area] 87 mL/min/{1.73_m2} Normal >59 [facility] Comment on above: Result Comment: Reported eGFR is based on the CKD-EPI 2020 equation that does not use a race coefficient. Performed By: #### 3 4148-7, 53958-8, BMP, CBC #### [facility] ([id number]) [address], [address] [place] [address] Glucose [Mass/Vol] 106 mg/dL High 65-99 [facility] Comment on above: Performed By: #### 3 4148-7, 62361-2, BMP, CBC #### [facility] ([id number]) [address], [address] [place] [address] Potassium [Moles/Vol] 3.9 mmol/L Normal 3.5-5.0 [facility] Comment on above: Performed By: #### 3 4148-7, 30324-2, BMP, CBC #### [facility] ([id number]) [address], [address] [place] [address] Sodium [Moles/Vol] 145 mmol/L Normal 134-146 [facility] Comment on above: Performed By: #### 3 4148-7, 35274-3, BMP, CBC #### [facility] ([id number]) [address], [address] [place] [address] Urea nitrogen [Mass/Vol] 23 mg/dL Normal 5-23 [facility] Comment on above: Performed By: #### 3 4148-7, 15945-5, BMP, CBC #### [facility] ([id number]) [address], [address] [place] [address] Basic Metabolic Panelon 06-20 Anion gap [Moles/Vol] 8 mmol/L 5 - 15 mmol/L [facility] Calcium [Mass/Vol] 8.8 mg/dL 8.5 - 10. 5 mg/dL [facility] Chloride [Moles/Vol] 107 mmol/L 98 - 10 9 mmol/L [facility] CO2 [Moles/Vol] 30 mmol/L 22 - 32 mmol/L [facility] Creatinine [Mass/Vol] 1 mg/dL 0.60 - 1.30 mg/dL [facility] Comment on above: METHOD TRACEABLE TO IDMS STANDARD eGFR (CKD-EPI)non-race dependent 87 - PINF [facility] Comment on above: Reported eGFR is based on the CKD-EPI 2020 equation that does not use a race coefficient. Glucose [Mass/Vol] 106 mg/dL High 65 - 99 mg/dL [facility] Interpretation and review of laboratory results Abnormal [facility] Potassium [Moles/Vol] 3.9 mmol/L 3.5 - 5.0 mmol/L [facility] Sodium [Moles/Vol] 145 mmol/L 134 - 146 mmol/L [facility] Urea nitrogen [Mass/Vol] 23 mg/dL 5 - 23 mg/dL [facility] CBC without diffon Erythrocyte distribution width (RBC) [Ratio] 15.3 % High 11.5 - 15.0 % [facility] Hematocrit (Bld) [Volume fraction] 41.3 % 39 - 49 % [facility] Hemoglobin (Bld) [Mass/Vol] 13.4 g/dL 13.0 - 17.0 g/dL [facility] Interpretation and review of laboratory results Abnormal [facility] MCH (RBC) [Entitic mass] 24.7 pg Low 27 - 34 pg [facility] MCHC (RBC) [Mass/Vol] 32.5 g/dL 32 - 3 6 g/dL [facility] MCV (RBC) [Entitic vol] 76 fL Low 80 - 100 fL [facility] Platelet mean volume (Bld) [Entitic vol] 7.8 fL 7 - 12 fL [facility] Platelets (Bld) [#/Vol] 152 10*3/uL [facility] RBC (Bld) [#/Vol] 5.45 10*6/uL [facility] WBC corrected for nucl RBC Auto (Bld) [#/Vol] 4.4 [facility] COMPLETE BLOOD COUNTon 07-07 Erythrocyte distribution width (RBC) [Ratio] 15.3 % High 11.5-15.0 [facility] Comment on above: Performed By: #### 3 4148-7, 96942-5, BMP, CBC #### [facility] ([id number]) [address], [address] [place] [address] Hematocrit (Bld) [Volume fraction] 41.3 % Normal 39-49 [facility] Comment on above: Performed By: #### 3 4148-7, 54987-0, BMP, CBC #### [facility] ([id number]) [address], [facility] [address] [place] [address] Hemoglobin (Bld) [Mass/Vol] 13.4 g/dL Normal 13.0-17.0 [facility] Comment on above: Performed By: #### 3 4148-7, 67666-9, BMP, CBC #### [facility] ([id number]) [address], [address] [address] MCH (RBC) [Entitic mass] 24.7 pg Low 27-34 [facility] Comment on above: Performed By: #### 3 4148-7, 40101-9, BMP, CBC #### [facility] ([id number]) [address], [facility] [address] [place] [address] MCHC (RBC) [Mass/Vol] 32.5 g/dL Normal 32-36 [facility] Comment on above: Performed By: #### 3 4148-7, 49228-1, BMP, CBC #### [facility] ([id number]) [address], [address] [address] MCV (RBC) [Entitic vol] 76 fL Low 80-100 [facility] Comment on above: Performed By: #### 3 4148-7, 73656-0, BMP, CBC #### [facility] ([id number]) [address], [facility] [address] [place] [address] Platelet mean volume (Bld) [Entitic vol] 7.8 fL Normal 7-12 [facility] Comment on above: Performed By: #### 3 4148-7, 08801-6, BMP, CBC #### [facility] ([id number]) [address], [address] [place] [address] Platelets (Bld) [#/Vol] 152 10*3/uL Normal 150-450 [facility] Comment on above: Performed By: #### 3 4148-7, 00704-1, BMP, CBC #### [facility] ([id number]) [address], [address] [place] [address] RBC COUNT 5.45 X10E12/L Normal 4.10-5.70 [facility] Comment on above: Performed By: #### 3 4148-7, 94412-0, BMP, CBC #### [facility] ([id number]) [address], [address] [place] [address] WBC (Bld) [#/Vol] 4.4 10*3/uL Normal 4.0-11.0 [facility] Comment on above: Performed By: #### 3 4148-7, 82028-7, BMP, CBC #### [facility] ([id number]) [address], [address] [place] [address] CT BRAIN WO CONTon 5 CT BRAIN [...] on 07/07/2024 9:19 AM Normal [facility] CT Head WO contraston 2024 CT BRAIN [...] Delonte Johnson MD on 07/07/2024 9:19 AM SECTRAPACS Delonte Johnson MD - 07/07/2024 CT BRAIN [...] Delonte Johnson MD on 07/07/2024 9:19 AM [employer] Study observation (narrative) [employer] CT Head WO contrastOrdered B y: Delonte Johnson on 07-07-2024 [employer] Work Phone: EEGon 07-07-2024 Images from [...] RESULTS EEGOrdered By: Reji Sanon on 07-07-2024 [facility] Work Phone: T. pallidum IgG+IgM IA Ql (S )on 07-07-2024 Syphilis Total <0.2 Normal 0.0-0.8 [facility] Comment on above: Result Comment: NON REACTIVE No serologic evidence of infection to Treponema pallidum (syphilis). Repeat testing may be considered in patients with suspected acute or primary syphilis in 2 to 4 weeks. Performed By: #### 3 4148-7, 94154-0, BMP, CBC #### [facility] ([id number]) [address], [address] [place] [address] BASIC METABOLIC PANLon 07-06 Anion gap [Moles/Vol] 7 mmol/L Normal 5-15 [facility] Comment on above: Performed By: #### 1 9123-9, 2777-1, BMP, CBC, THYR #### [facility] ([id number]) [address], [address] [place] [address] Calcium [Mass/Vol] 8.8 mg/dL Normal 8.5-10.5 [facility] Comment on above: Performed By: #### 1 9123-9, 2777-1, BMP, CBC, THYR #### [facility] ([id number]) [address], [address] [place] [address] Chloride [Moles/Vol] 105 mmol/L Normal 98-109 [facility] Comment on above: Performed By: #### 1 9123-9, 2777-1, BMP, CBC, THYR #### [facility] ([id number]) [address], [address] [place] [address] CO2 [Moles/Vol] 30 mmol/L Normal 22-32 [facility] Comment on above: Performed By: #### 1 9123-9, 27712-18, BMP, CBC, THYR #### [facility] ([id number]) [address], [address] [place] [address] Creatinine [Mass/Vol] 1.00 mg/dL Normal 0.60-1.30 [facility] Comment on above: Result Comment: METH OD TRACEABLE TO IDMS STANDARD Performed By: #### 1 91-9, 2776-06, BMP, CBC, THYR #### [facility] ([id number]) [address], [address] [place] [address] GFR/1.73 sq M.predicted among non-blacks MDRD (S/P/Bld) [Vol rate/Area] 87 mL/min/{1.73_m2} Normal >59 [facility] Comment on above: Result Comment: Reported eGFR is based on the CKD-EPI 2020 equation that does not use a race coefficient. Performed By: #### 1 919, 2776-06, BMP, CBC, THYR #### [facility] ([id number]) [address], [address] [place] [address] Glucose [Mass/Vol] 102 mg/dL High 65-99 [facility] Comment on above: Performed By: #### 1 9123-9, 2776-06, BMP, CBC, THYR #### [facility] ([id number]) [address], [address] [place] [address] Potassium [Moles/Vol] 4.0 mmol/L Normal 3.5-5.0 [facility] Comment on above: Performed By: #### 1 9123-9, 27712-18, BMP, CBC, THYR #### [facility] ([id number]) [address], [address] [place] [address] Sodium [Moles/Vol] 142 mmol/L Normal 134-146 [facility] Comment on above: Performed By: #### 1 9123-9, 277, BMP, CBC, THYR #### [facility] ([id number]) [address], [address] [place] [address] Urea nitrogen [Mass/Vol] 22 mg/dL Normal 5-23 [facility] Comment on above: Performed By: #### 1 9123-9, 2777-1, BMP, CBC, THYR #### [facility] ([id number]) [address], [address] [place] [address] Basic Metabolic Panelon 06-20 Anion gap [Moles/Vol] 7 mmol/L 5 - 15 mmol/L [facility] Calcium [Mass/Vol] 8.8 mg/dL 8.5 - 10. 5 mg/dL [facility] Chloride [Moles/Vol] 105 mmol/L 98 - 10 9 mmol/L [facility] CO2 [Moles/Vol] 30 mmol/L 22 - 32 mmol/L [facility] Creatinine [Mass/Vol] 1 mg/dL 0.60 - 1.30 mg/dL [facility] Comment on above: METHOD TRACEABLE TO [facility] STANDARD eGFR (CKD-EPI)non-race dependent 87 - PINF [facility] Comment on above: Reported eGFR is based on the CKD-EPI 2020 equation that does not use a race coefficient. Glucose [Mass/Vol] 102 mg/dL High 65 - 99 mg/dL [facility] Interpretation and review of laboratory results Abnormal [facility] Potassium [Moles/Vol] 4 mmol/L 3.5 - 5.0 mmol/L [facility] Sodium [Moles/Vol] 142 mmol/L 134 - 146 mmol/L [facility] Urea nitrogen [Mass/Vol] 22 mg/dL 5 - 23 mg/dL [facility] CBC without diffon Erythrocyte distribution width (RBC) [Ratio] 15.5 % High 11.5 - 15.0 % [facility] Hematocrit (Bld) [Volume fraction] 42.8 % 39 - 49 % [facility] Hemoglobin (Bld) [Mass/Vol] 14.1 g/dL 13.0 - 17.0 g/dL [facility] Interpretation and review of laboratory results Abnormal [facility] MCH (RBC) [Entitic mass] 24.7 pg Low 27 - 34 pg [facility] MCHC (RBC) [Mass/Vol] 33 g/dL 32 - 3 6 g/dL [facility] MCV (RBC) [Entitic vol] 75 fL Low 80 - 100 fL [facility] Platelet mean volume (Bld) [Entitic vol] 7.8 fL 7 - 12 fL [facility] Platelets (Bld) [#/Vol] 169 10*3/uL [facility] RBC (Bld) [#/Vol] 5.71 10*6/uL High [facility] WBC corrected for nucl RBC Auto (Bld) [#/Vol] 4.7 [facility] COMPLETE BLOOD COUNTon 07-06 Erythrocyte distribution width (RBC) [Ratio] 15.5 % High 11.5-15.0 [facility] Comment on above: Performed By: #### 1 9123-9, 2777-1, BMP, CBC, THYR #### [facility] ([id number]) [address], [address] [place] [address] Hematocrit (Bld) [Volume fraction] 42.8 % Normal 39-49 [facility] Comment on above: Performed By: #### 1 9123-9, 2777-1, BMP, CBC, THYR #### [facility] ([id number]) [address], [address] [place] [address] Hemoglobin (Bld) [Mass/Vol] 14.1 g/dL Normal 13.0-17.0 [facility] Comment on above: Performed By: #### 1 9123-9, 2777-1, BMP, CBC, THYR #### [facility] ([id number]) [address], [address] [place] [address] MCH (RBC) [Entitic mass] 24.7 pg Low 27-34 [facility] Comment on above: Performed By: #### 1 9123-9, 277-, BMP, CBC, THYR #### [facility] ([id number]) [address], [address] [place] [address] MCHC (RBC) [Mass/Vol] 33.0 g/dL Normal 32-36 [facility] Comment on above: Performed By: #### 1 91-9, 2776-06, BMP, CBC, THYR #### [facility] ([id number]) [address], [facility] [address] [place] [address] MCV (RBC) [Entitic vol] 75 fL Low 80-100 [facility] Comment on above: Performed By: #### 1 91-9, 2776-06, BMP, CBC, THYR #### [facility] ([id number]) [address], [facility] [address] [place] [address] Platelet mean volume (Bld) [Entitic vol] 7.8 fL Normal 7-12 [facility] Comment on above: Performed By: #### 1 9123-, 27712-18, BMP, CBC, THYR #### [facility] ([id number]) [address], [facility] [address] [place] [address] Platelets (Bld) [#/Vol] 169 10*3/uL Normal 150-450 [facility] Comment on above: Performed By: #### 1 9123-9, 27712-18, BMP, CBC, THYR #### [facility] ([id number]) [address], [facility] [address] [place] [address] RBC COUNT 5.71 X10E12/L High 4.10-5.70 [facility] Comment on above: Performed By: #### 1 9123-9, 277-, BMP, CBC, THYR #### [facility] ([id number]) [address], [address] [place] [address] WBC (Bld) [#/Vol] 4.7 10*3/uL Normal 4.0-11.0 [facility] Comment on above: Performed By: #### 1 9123-9, 2777-1, BMP, CBC, THYR #### [facility] ([id number]) [address], [address] [place] [address] MAGNESIUMon 07-06-2024 Magnesium [Mass/Vol] 1.9 mg/dL Normal 1.8-2.6 [facility] Comment on above: Performed By: #### 1 9123-9, 2777-, BMP, CBC, THYR #### [facility] ([id number]) [address], [address] [place] [address] Magnesiumon 07-06-2024 Magnesium [Mass/Vol] 1.9 mg/dL 1.8 - 2 .6 mg/dL [facility] No Panel Informationon 07-06 [facility] PHOSPHORUSon 07-06-2024 Phosphate [Mass/Vol] 4.1 mg/dL Normal 2.4-4.9 [facility] Comment on above: Performed By: #### 1 9123-9, 2777-, BMP, CBC, THYR #### [facility] ([id number]) [address], [address] [place] [address] Phosphoruson 07-06-2024 Phosphate [Mass/Vol] 4.1 mg/dL 2.4 - 4 .9 mg/dL [facility] THYROID PROFILEon 07-06-2024 Free T4 [Mass/Vol] 0.84 ng/dL Normal 0.61-1.60 [facility] Comment on above: Performed By: #### 1 9123-9, 2777-, BMP, CBC, THYR #### [facility] ([id number]) [address], [address] [place] [address] TSH 1.16 uIU/mL Normal 0.49-4.67 [facility] Comment on above: Performed By: #### 1 9123-9, 2777-1, BMP, CBC, THYR #### [facility] ([id number]) [address] [facility] [facility] [place] [address] Thyroid profile includes TSH FT4on 07-06-2024 Free T4 [Mass/Vol] 0.84 ng/dL 0.61 - 1. 60 ng/dL [facility] TSH Qn 1.16 m[IU]/L [facility] ACETAMINOPHENon 06-24-2024 Acetaminophen [Mass/Vol] 3.3 ug/mL Low 10.0-30.0 [facility] Comment on above: Result Comment: Refe rence ranges are for therapeutic limits. Performed By: #### C BCA, CMP, 5643-2, 3298-7, 4024-6, THYR #### [facility] ([id number]) [address] [place] [address] CBC AND AUTO DIFFon 06-24-19 25 ABSOLUTE BASOPHIL 0.1 X10E9/L Normal 0.0-0.2 [facility] Comment on above: Performed By: #### C BCA, CMP, 5643-2, 3298-7, 4024-6, THYR #### [facility] ([id number]) [address] [place] [address] ABSOLUTE NEUTROPHIL 3.1 X10E9/L Normal 1.5-6.6 [facility] Comment on above: Performed By: #### C BCA, CMP, 5643-2, 3298-7, 4024-6, THYR #### [facility] ([id number]) [address] [place] [address]283 Basophils/100 WBC (Bld) 1.0 % Normal [facility] Comment on above: Performed By: #### C BCA, CMP, 5643-2, 3298-7, 4024-6, THYR #### [facility] ([id number]) [address] [place] [address] Eosinophils (Bld) [#/Vol] 0.1 10*3/uL Normal 0.0-0.4 [facility] Comment on above: Performed By: #### C CARRIE, [facility], 5643-2, 3298-7, 4024-6, THYR #### [facility] ([id number]) [address] [place] [address] Eosinophils/100 WBC (Bld) 1.4 % Normal [facility] Comment on above: Performed By: #### C CARRIE, [facility], [facility]-2, 3298-7, 4026, THYR #### [facility] ([id number]) [address] [place] [address] Erythrocyte distribution width (RBC) [Ratio] 15.6 % High 11.5-15.0 [facility] Comment on above: Performed By: #### C CARRIE [facility], 5643-2, 3298-7, 4024-6, THYR #### [facility] ([id number]) [address] [place] [address] Hematocrit (Bld) [Volume fraction] 42.7 % Normal 39-49 [facility] Comment on above: Performed By: #### C CARRIE, [facility], 5643-2, 3298-7, 4024-6, THYR #### [facility] ([id number]) [address] [place] [address] Hemoglobin (Bld) [Mass/Vol] 14.3 g/dL Normal 13.0-17.0 [facility] Comment on above: Performed By: #### C CARRIE, [facility], 5643-2, 3298-7, 4024-6, THYR #### [facility] ([id number]) [address] [place] [address] Lymphocytes (Bld) [#/Vol] 1.8 10*3/uL Normal 1.0-3.5 [facility] Comment on above: Performed By: #### C BCA, CMP, 5643-2, 3298-7, 4024-6, THYR #### [facility] ([id number]) [address] [place] [address] 94439 Lymphocytes/100 WBC (Bld) 33.3 % Normal [facility] Comment on above: Performed By: #### C BCA, CMP, 5643-2, 3298-7, 4024-6, THYR #### [facility] ([id number]) [address] [place] [address]406 MCH (RBC) [Entitic mass] 24.7 pg Low 27-34 [facility] Comment on above: Performed By: #### C CARRIE, CMP, 5643-2, 3298-7, 4024-6, THYR #### [facility] ([id number]) [address] [place] [address] 14525 MCHC (RBC) [Mass/Vol] 33.4 g/dL Normal 32-36 [facility] Comment on above: Performed By: #### C BCA, CMP, 5643-2, 3298-7, 4024-6, THYR #### [facility] ([id number]) [address] [place] [address] 79602 MCV (RBC) [Entitic vol] 74 fL Low 80-100 [facility] Comment on above: Performed By: #### C BCA, CMP, 5643-2, 3298-7, 4024-6, THYR #### [facility] ([id number]) [address] [place] [address] 69893 Monocytes (Bld) [#/Vol] 0.4 10*3/uL Normal 0-0.9 [facility] Comment on above: Performed By: #### C BCA, CMP, 5643-2, 3298-7, 4024-6, THYR #### [facility] ([id number]) [address] [place] [address] 92770 Monocytes/100 WBC (Bld) 6.9 % Normal [facility] Comment on above: Performed By: #### C BCA, CMP, 5643-2, 3298-7, 4024-6, THYR #### [facility] ([id number]) [address] [place] [address] 57529 Neutrophils/100 WBC (Bld) 57.4 % Normal [facility] Comment on above: Performed By: #### C BCA, CMP, 5643-2, 3298-7, 4024-6, THYR #### [facility] ([id number]) [address] [place] [address] 98196 Platelet mean volume (Bld) [Entitic vol] 7.8 fL Normal 7-12 [facility] Comment on above: Performed By: #### C BCA, CMP, 5643-2, 3298-7, 4024-6, THYR #### [facility] ([id number]) [address] [place] [address] 94836 Platelets (Bld) [#/Vol] 174 10*3/uL Normal 150-450 [facility] Comment on above: Performed By: #### C BCA, CMP, 5643-2, 3298-7, 4024-6, THYR #### [facility] ([id number]) [address] [place] [address] 26521 RBC COUNT 5.77 X10E12/L High 4.10-5.70 [facility] Comment on above: Performed By: #### C BCA, CMP, 5643-2, 3298-7, 4024-6, THYR #### [facility] ([id number]) [address] [place] [address] 64418 WBC (Bld) [#/Vol] 5.4 10*3/uL Normal 4.0-11.0 [facility] Comment on above: Performed By: #### C BCA, CMP, 5643-2, 3298-7, 4024-6, THYR #### [facility] ([id number]) [address] [place] [address]90 COMPREHENSIVE METABOLIC PANE Jatin 06-24-2024 Albumin [Mass/Vol] 4.0 g/dL Normal 3.2-5.3 [facility] Comment on above: Performed By: #### C BCA, CMP, 5643-2, 3298-7, 4024-6, THYR #### [facility] ([id number]) [address] [place] [address] 05614 ALP [Catalytic activity/Vol] 65 U/L Normal 39-130 [facility] Comment on above: Performed By: #### C BCA, CMP, 5643-2, 3298-7, 4024-6, THYR #### [facility] ([id number]) [address] [place] [address] 33402 ALT [Catalytic activity/Vol] 17 U/L Normal 0-40 [facility] Comment on above: Performed By: #### C BCA, CMP, 5643-2, 3298-7, 4024-6, THYR #### [facility] ([id number]) [address] [place] [address] 79874 Anion gap [Moles/Vol] 8 mmol/L Normal 5-15 [facility] Comment on above: Performed By: #### C BCA, CMP, 5643-2, 3298-7, 4024-6, THYR #### [facility] ([id number]) [address] [place] [address] 59919 AST [Catalytic activity/Vol] 17 U/L Normal 0-41 [facility] Comment on above: Performed By: #### C BCA, CMP, 5643-2, 3298-7, 4024-6, THYR #### [facility] ([id number]) [address] [place] [address] 02580 Bilirubin [Mass/Vol] 0.7 mg/dL Normal 0.3-1.2 [facility] Comment on above: Performed By: #### C BCA, CMP, 5643-2, 3298-7, 4024-6, THYR #### [facility] ([id number]) [address] [place] [address] 17971 Calcium [Mass/Vol] 8.9 mg/dL Normal 8.5-10.5 [facility] Comment on above: Performed By: #### C BCA, CMP, 5643-2, 3298-7, 4024-6, THYR #### [facility] ([id number]) [address] [place] [address] 22226 Chloride [Moles/Vol] 106 mmol/L Normal 98-109 [facility] Comment on above: Performed By: #### C BCA, CMP, 5643-2, 3298-7, 4024-6, THYR #### [facility] ([id number]) [address] [place] [address] 96226 CO2 [Moles/Vol] 24 mmol/L Normal 22-32 [facility] Comment on above: Performed By: #### C BCA, CMP, 5643-2, 3298-7, 4024-6, THYR #### [facility] ([id number]) [address] [place] [address] 44786 Creatinine [Mass/Vol] 0.88 mg/dL Normal 0.70-1.20 [facility] Comment on above: Result Comment: METH OD TRACEABLE TO IDMS STANDARD Performed By: #### C BCA, CMP, 5643-2, 3298-7, 4024-6, THYR #### [facility] ([id number]) [address] [place] [address] 83064 eGFR (CKD-EPI) NON-RACE DEPENDENT >90 Normal >59 [facility] Comment on above: Result Comment: Reported eGFR is based on the CKD-EPI 2020 equation that does not use a race coefficient. Performed By: #### C CARRIE, OWEN, 5643-2, 3298-7, 4024-6, THYR #### [facility] ([id number]) [address] [place] [address] 91010 Glucose [Mass/Vol] 105 mg/dL High 65-99 [facility] Comment on above: Performed By: #### C OWEN BUTLER, 5643-2, 3298-7, 4024-6, THYR #### [facility] ([id number]) [address] [place] [address] 63020 Potassium [Moles/Vol] 3.9 mmol/L Normal 3.5-5.0 [facility] Comment on above: Performed By: #### C CARRIE, OWEN, 5643-2, 3298-7, 4024-6, THYR #### [facility] ([id number]) [address] [place] [address] 89044 Protein [Mass/Vol] 6.9 g/dL Normal 6.0-8.0 [facility] Comment on above: Performed By: #### C CARRIE, OWEN, 5643-2, 3298-7, 4024-6, THYR #### [facility] ([id number]) [address] [place] [address] 71626 Sodium [Moles/Vol] 138 mmol/L Normal 134-146 [facility] Comment on above: Performed By: #### C CARRIE, OWEN, 5643-2, 3298-7, 4024-6, THYR #### [facility] ([id number]) [address] [place] [address] 46955 Urea nitrogen [Mass/Vol] 20 mg/dL Normal 5-23 [facility] Comment on above: Performed By: #### C BCA, CMP, 5643-2, 3298-7, 4024-6, THYR #### [facility] ([id number]) [address] [place] [address] 65088 DRUG SCREEN, URINEon 025 AMPHETAMINE/METHAMP Negative Normal NEG [facility] Comment on above: Result Comment: AMPH /METH screening cut off = 1000 ng/mL Performed By: #### D FAGAN #### [facility] ([id number]) [address] [place] [address] 97519 BARBITURATES Negative Normal NEG [facility] Comment on above: Result Comment: Izabel iturates screening cut off value = 200 ng/mL Performed By: #### D FAGAN #### [facility] ([id number]) [address] [place] [address] 23161 BENZODIAZEPINES Negative Normal NEG [facility] Comment on above: Result Comment: Skyler odiazepines screening cut off value = 200 ng/mL Performed By: #### D FAGAN #### [facility] ([id number]) [address] [place] [address] 77396 CANNABINOIDS Negative Normal NEG [facility] Comment on above: Result Comment: Sabina abinoids/THC screening cut off value = 50 ng/mL Performed By: #### D FAGAN #### [facility] ([id number]) [address] [place] [address] 58896 COCAINE METABOLITE Negative Normal NEG [facility] Comment on above: Result Comment: Coca ine screening cut off value = 300 ng/mL Performed By: #### D FAGAN #### [facility] ([id number]) [address] [place] [address] 45645 ECSTASY Negative Normal NEG [facility] Comment on above: Result Comment: Ecst asy screening cut off value = 500 ng/mL This report is intended for use in clinical monitoring or management of patients. Performed By: #### D FAGAN #### [facility] ([id number]) [address] [place] [address] 28365 METHADONE Negative Normal NEG [facility] Comment on above: Result Comment: Meth adone screening cut off value = 300 ng/mL. Performed By: #### D FAGAN #### [facility] ([id number]) [address] [place] [address] 79717 OPIATES Negative Normal NEG [facility] Comment on above: Result Comment: Opia ann screening cut off value = 300 ng/mL NOTE: This test is used for the detection of codeine, hydrocodone (>1000 ng/mL), morphine and hydromorphone (>900 ng/mL) in urine. Performed By: #### D FAGAN #### [facility] ([id number]) [address] [place] [address] 32744 OXYCODONE Negative Normal NEG [facility] Comment on above: Result Comment: Oxyc odone screening cut off value = 300 ng/mL NOTE: This test is used for the detection of oxycodone and oxymorphone in urine. Performed By: #### D FAGAN #### [facility] ([id number]) [address] [place] [address] 59617 PHENCYCLIDINE Negative Normal NEG [facility] Comment on above: Result Comment: Phen cyclidine screening cut off value = 25 ng/mL Performed By: #### D FAGAN #### [facility] ([id number]) [address] [place] [address] 24671 ETHANOLon 06-24-2024 Ethanol [Mass/Vol] mg/dL Normal 0.00-0.08 [facility] Comment on above: Result Comment: This report is intended for use in clinical monitoring or management of patients. Performed By: #### C BCA, CMP, 5643-2, 3298-7, 4024-6, THYR #### [facility] ([id number]) [address] [place] [address] Salicylates [Mass/Vol]on SALICYLATE <4.0 Normal 2.0-25.0 [facility] Comment on above: Result Comment: Refe rence ranges are for therapeutic limits. Performed By: #### C CARRIE, OWEN, 5643-2, 3298-7, 4024-6, THYR #### [facility] ([id number]) [address] [place] [address] [place] [address] THYROID PROFILEon 06-24-2024 Free T4 [Mass/Vol] 0.92 ng/dL Normal 0.61-1.60 [facility] Comment on above: Performed By: #### C CARRIE, [facility], 5643-2, 3298-7, 4024-6, THYR #### [facility] ([id number]) [address] [place] [address] TSH 4.19 uIU/mL Normal 0.49-4.67 [facility] Comment on above: Performed By: #### C CARRIE, [facility], 5643-2, 3298-7, 4024-6, THYR #### [facility] ([id number]) [address] [place] [address] [place] [address] URN MACROSCOPIC NURon 2024 BILIRUBIN IRMA Negative Normal NEG [facility] Comment on above: Performed By: #### N UM #### [facility] ([id number]) [address] [place] [address] [place] [address] BLOOD/HGB IRMA Negative Normal NEG [facility] Comment on above: Performed By: #### N UM #### [facility] ([id number]) [address] [place] [address] [place] [address] GLUCOSE IRMA Negative Normal NEG [facility] Comment on above: Performed By: #### N UM #### [facility] ([id number]) [address] [place] [address] KETONES IRMA Negative Normal NEG [facility] Comment on above: Performed By: #### N UM #### [facility] ([id number]) [address] [place] [address] LEUKOCYTE ESTERASE IRMA Negative Normal NEG [facility] Comment on above: Performed By: #### N UM #### [facility] ([id number]) [address] [place] [address] NITRITE IRMA Negative Normal NEG [facility] Comment on above: Performed By: #### N UM #### [facility] ([id number]) [address] [place] [address] 25012 PH IRMA 7.5 Normal 5.0-8.5 [facility] Comment on above: Performed By: #### N UM #### [facility] ([id number]) [address] [place] [address] 41792 PROTEIN IRMA Negative Normal NEG [facility] Comment on above: Performed By: #### N UM #### [facility] ([id number]) [address] [place] [address] 24640 SPECIFIC GRAVITY IRMA 1.015 Normal 1.003-1.035 [facility] Comment on above: Performed By: #### N UM #### [facility] ([id number]) [address] [place] [address] 10387 UROBILINOGEN IRMA 0.2 eu/dL Normal <1.1 [facility] Comment on above: Performed By: #### N UM #### [facility] ([id number]) [address] [place] [address] 68534 BMPon 06-21-2024 Anion gap [Moles/Vol] 11 mmol/L Normal 6-16 [facility] Comment on above: Performed By: #### 2 [id number] #### [facility] [address] [place] [address] Calcium [Mass/Vol] 9.0 mg/dL Normal 8.9-11.1 [facility] Comment on above: Performed By: #### 2 [id number] #### [facility] [address] [place] [address] Chloride [Moles/Vol] 102 mmol/L Normal 101-111 [facility] Comment on above: Performed By: #### 2 [id number] #### [facility] [address] [place] [address] CO2 [Moles/Vol] 30 mmol/L Normal 21-31 [facility] Comment on above: Performed By: #### 2 [id number] #### [facility] [address] [place] [address] Creatinine [Mass/Vol] 0.9 mg/dL Normal 0.5-1.3 [facility] Comment on above: Performed By: #### 2 [id number] #### [facility] [address] [place] [address] Glucose [Mass/Vol] 108 mg/dL Normal 55-199 [facility] Comment on above: Performed By: #### 2 [id number] #### [facility] [address] [place] [address] Potassium [Moles/Vol] 3.9 mmol/L Normal 3.5-5.3 [facility] Comment on above: Performed By: #### 2 [id number] #### [facility] [address] [place] [address] Sodium [Moles/Vol] 139 mmol/L Normal 135-145 [facility] Comment on above: Performed By: #### 2 [id number] #### [facility] [address] [place] [address] Urea nitrogen [Mass/Vol] 12 mg/dL Normal 5-21 [facility] Comment on above: Performed By: #### 2 [id number] #### [facility] [address] [place] [address] Urea nitrogen/Creatinine [Mass ratio] 13 No Units Normal 10-20 [facility] Comment on above: Performed By: #### 2 [id number] #### [facility] [address] [place] [address] 34443 CBC w/ Auto Diffon 5 Basophils/100 WBC (Bld) 0.6 % Normal 0.0-2.0 [facility] Comment on above: Performed By: #### 2 [id number] #### [facility] [address] [place] [address] 20433 Basophils/Leukocytes Auto (Bld) [Pure # fraction] 0.0 E9/L Normal 0.0-0.2 [facility] Comment on above: Performed By: #### 2 [id number] #### [facility] [address] [place] [address] 11434 Eosinophils (Bld) [#/Vol] 0.0 E9/L Normal 0.0-0.5 [facility] Comment on above: Performed By: #### 2 [id number] #### [facility] [address] [place] [address] 71544 Eosinophils/100 WBC (Bld) 0.6 % Normal 0.0-8.0 [facility] Comment on above: Performed By: #### 2 [id number] #### [facility] [address] [place] [address] 11123 Erythrocyte distribution width (RBC) [Ratio] 15.6 % High 10.9-14.2 [facility] Comment on above: Performed By: #### 2 [id number] #### [facility] [address] [place] [address] 75386 Hematocrit (Bld) [Volume fraction] 45.0 % Normal 37.7-49.0 [facility] Comment on above: Performed By: #### 2 [id number] #### [facility] [address] [place] [address] Hemoglobin (Bld) [Mass/Vol] 14.7 g/dL Normal 13.5-17.5 [facility] Comment on above: Performed By: #### 2 [id number] #### [facility] [address] [place] [address] Hypochromia Auto Ql (Bld) PRESENT Invalid Interpretation Code [facility] Comment on above: Performed By: #### 2 [id number] #### [facility] [address] [place] [address] Lymphocytes (Bld) [#/Vol] 1.1 E9/L Normal 1.0-4.0 [facility] Comment on above: Performed By: #### 2 [id number] #### [facility] [address] [place] [address] Lymphocytes/100 WBC (Bld) 23.5 % Normal 14.0-50.0 [facility] Comment on above: Performed By: #### 2 [id number] #### [facility] [address] [place] [address] MCH (RBC) [Entitic mass] 24.7 pg Low 27.0-34.0 [facility] Comment on above: Performed By: #### 2 [id number] #### [facility] [address] [place] [address] MCHC (RBC) [Mass/Vol] 32.7 g/dL Normal 31.4-36.0 [facility] Comment on above: Performed By: #### 2 [id number] #### [facility] [address] [place] [address] MCV (RBC) [Entitic vol] 75.5 fL Low 80.0-100.0 [facility] Comment on above: Performed By: #### 2 [id number] #### [facility] [address] [place] [address] Monocytes (Bld) [#/Vol] 0.2 E9/L Normal 0.2-1.0 [facility] Comment on above: Performed By: #### 2 778327 #### [facility] [address] [place] [address] Neutrophils (Bld) [#/Vol] 3.3 E9/L Normal 2.0-7.5 [facility] Comment on above: Performed By: #### 2 955332 #### [facility] [address] [place] [address] Neutrophils/100 WBC (Bld) 70.5 % Normal 36.0-75.0 [facility] Comment on above: Performed By: #### 2 [id number] #### [facility] [address] [place] [address] Platelet mean volume (Bld) [Entitic vol] 8.5 fL Normal 6.4-10.8 [facility] Comment on above: Performed By: #### 2 [id number] #### [facility] [address] [place] [address] Platelets (Bld) [#/Vol] 167.0 E9/L Normal 150.0-500.0 [facility] Comment on above: Performed By: #### 2 [id number] #### [facility] [address] [place] [address] RBC (Bld) [#/Vol] 6.0 E12/L High 4.3-5.9 [facility] Comment on above: Performed By: #### 2 [id number] #### [facility] [address] [place] [address] RBC size Nom (Bld) SEE MORPHOLOGY Invalid Interpretation Code [facility] Comment on above: Performed By: #### 2 [id number] #### [facility] [address] [place] [address] WBC corrected for nucl RBC Auto (Bld) [#/Vol] 4.6 E9/L Normal 4.0-11.0 [facility] Comment on above: Performed By: #### 2 [id number] #### [facility] [address] [place] [address] CHEMISTRYOrdered By: SYSTEM SYSTEM on 06-21-2024 Anion [...] Normal 25.1 - 36.5 second(s) [facility] Comment on above: Interpretive Data: P aleksandra 15 days - 4 weeks 1 - [...] coagulation reagent and instrumentation as [facility]. Currently there are no coagulation studies available worldwide for children to 14 days, and no normal ranges. Heparin therapeutic range (represented by Anti-Factor Xa activity of 0.2 - 0.4 U/mL) corresponds to PTT of 56.6 - 109.0 sec. INR Coag (PPP) [Relative time] 1.02 {INR} Invalid Interpretation Code [facility] Comment on above: Interpretive Data: I NR results are specifically intended to assess patients stabilized on long-term Anticoagulation therapy suggested INR s Less Intensive Anticoagulation 2.0 3.0 Conventional Range 3.0 4.5 PT Coag (PPP) [Time] 11.4 s Normal 9.4 - 1 2.5 second(s) [facility] Comment on above: Interpretive Data: [...] coagulation reagent and instrumentation as [facility] Currently there are no coagulation studies available [...] Coag (PPP) [Time] 30.4 second(s) Normal 25.1-36.5 [facility] Comment on above: Result Comment: Para meter [...] coagulation reagent and instrumentation as [facility]. Currently there are no coagulation studies available worldwide for children to 14 days, and no normal ranges. Heparin therapeutic range (represented by Anti-Factor Xa activity of 0.2 - 0.4 U/mL) corresponds to PTT of 56.6 - 109.0 sec. Performed By: #### 1 [id number] #### [facility] [address] [place] [address] INR Coag (PPP) [Relative time] 1.02 {INR} Invalid Interpretation Code [facility] Comment on above: Result Comment: INR results are specifically intended to assess patients stabilized on long-term Anticoagulation therapy suggested INR???s ???Less Intensive Anticoagulation??? 2.0 ??? 3.0 Conventional Range 3.0 ??? 4.5 Performed By: #### 1 [id number] #### [facility] [address] [place] [address] PT Coag (PPP) [Time] 11.4 second(s) Normal 9.4-12.5 [facility] Comment on above: Result Comment: 15 d [...] coagulation reagent and instrumentation as [facility] Currently there are no coagulation studies available worldwide for children to 14 days, and no normal ranges. Performed By: #### 1 [id number] #### [facility] [address] [place] [address] UA with Cult Rflxon 06-21-19 25 Bilirubin Ql (U) Negative Normal Negative [facility] Comment on above: Performed By: #### 4 [id number] #### [facility] [address] [place] [address] Clarity (U) Clear Normal Clear [facility] Comment on above: Performed By: #### 4 [id number] #### [facility] [address] [place] [address] Color (U) Colorless Abnormal Yellow [facility] Comment on above: Result Comment: Micr oscopic readings are only performed on those samples that meet specific criteria set forth by [facility]. Performed By: #### 4 [id number] #### [facility] [address] [place] [address] Glucose Ql (U) Negative Normal Negative [facility] Comment on above: Performed By: #### 4 [id number] #### [facility] [address] [place] [address] Hemoglobin Auto test strip (U) [Mass/Vol] Negative Normal Negative [facility] Comment on above: Performed By: #### 4 [id number] #### [facility] [address] [place] [address] Ketones Auto test strip Ql (U) Negative Normal Negative [facility] Comment on above: Performed By: #### 4 [id number] #### [facility] [address] [place] [address] Leukocyte esterase Auto test strip Ql (U) Negative Normal Negative [facility] Comment on above: Performed By: #### 4 [id number] #### [facility] [address] [place] [address] Nitrite Auto test strip Ql (U) Negative Normal Negative [facility] Comment on above: Performed By: #### 4 [id number] #### [facility] [address] [place] [address] pH (U) 7.0 [pH] Invalid Interpretation Code 5.0-9.0 [facility] Comment on above: Performed By: #### 4 [id number] #### [facility] [address] [place] [address] Protein Ql (U) Negative Normal Negative [facility] Comment on above: Performed By: #### 4 [id number] #### [facility] [address] [place] [address] Specific gravity (U) [Rel density] 1.005 Invalid Interpretation Code 1.005-1.030 [facility] Comment on above: Performed By: #### 4 [id number] #### [facility] [address] [place] [address] Urobilinogen (U) [Mass/Vol] Negative Normal Negative [facility] Comment on above: Performed By: #### 4 [id number] #### [facility] [address] [place] [address] Type of Urine collection method Clean Catch Normal [facility] Comment on above: Performed By: #### 4 [id number] #### [facility] [address] [place] [address] URINALYSISOrdered By: SYSTEM SYSTEM on 06-21-2024 Bilirubin Ql (U) Negative Normal Negativemg/ dL [facility] UA Auto SS Clarity (U) Clear (06/21/24 11:04 AM) Normal Clear [facility] UA Auto SS Color (U) Colorless 1 *ABN* (06/21/24 11:04 AM) Invalid Interpretation Code Yellow [facility]A Auto SS Comment on above: Interpretive Data: M icroscopic readings are only performed on those samples that meet specific criteria set forth by [facility]. Glucose Ql (U) Negative Normal Negativemg/ dL [facility] UA Auto SS Hemoglobin Auto test strip (U) [Mass/Vol] Negative Normal Negativemg/ dL FT UA Auto SS Ketones Auto test strip Ql (U) Negative Normal Negativemg/ dL [facility] UA Auto SS Leukocyte esterase Auto test strip Ql (U) Negative Normal NegativeLeu /uL [facility] UA Auto SS Nitrite Auto test strip Ql (U) Negative Normal Negativemg/ dL [facility] UA Auto SS pH (U) 7.0 *NA* (06/21/24 11:04 AM) Invalid Interpretation Code 5.0 - 9.0 [facility] UA Auto SS Protein Ql (U) Negative Normal Negativemg/ dL [facility] UA Auto SS Specific gravity (U) [Rel density] 1.005 *NA* (06/21/24 11:04 AM) Invalid Interpretation Code 1.005 - 1.030 [facility] UA Auto SS Urobilinogen (U) [Mass/Vol] Negative Normal Negativemg/ dL [facility] UA Auto SS URINALYSISOrdered By: Peter Larios on 06-21-2024 UA Spec Desc Clean Catch (06/21/24 11:04 AM) Normal [facility] UA Auto SS XR Chest 2 Viewson [...] mGy = na DAP = na Normal [facility] eGFRon 06-21-2024 eGFR 98 mL/min/1.73 m2 Normal >=59 [facility] Comment on above: Performed By: #### 1 [id number] #### [facility] [address] [place] [address] Provider Letteron 04-18-2024 Provider Letter Provider Letter April 18, 2024 ESTELLA JEFFERY [address] [place] [id number] : 1965 Dear, I am corresponding with [...] Sincerely, Dr. Danni Graham [facility] [address] [facility] [place] [address] Normal [facility] ISTAT XRay CREon 03-15-2024 ISTAT GFR > 60.0 Normal [facility] Comment on above: Result Comment: PERF ORMED BY: [place] [address] PATHOLOGIST [employer] NALDO SALDIVAR M.D. Performed By: #### I SCRE #### [address] MR prostate wo/w conon 03-15 MR prostate wo/w con [facility] [place] [address] [place] [address] MRI Report Signed Patient: Estella Jeffery MR#: [id number] : 1965 Acct:[id number] Age/Sex: 58 / M ADM Date: 03/15/24 Loc: Room: Type: [facility] Attending Dr: Danni Graham MD Copies to: [...] recommended. Impression dictated by: Esdras Anne Jr., D.O.03/15/2024 3:05 PM Dictation Location: [place] [address] Transcribed By: [facility] 03/15/24 1505 Dictated By: Esdras Anne Jr, DO 03/15/24 1501 Signed By: 03/15/24 1505 Normal [facility] No Panel InformationOrdered By: Danni Graham on 03-15-2024 Bedside Estimated GFR (eGFR) > 60.0 [facility] Whole blood creatinine measu rementOrdered By: Danni Graham on 03-15-2024 Creatinine [Mass/Vol] 1.0 mg/dL Normal 0.6-1.3 [facility] Comment on above: ER/ESD physician is notified/shown all ISTAT results.Critical values may be confirmed by laboratory testing ifdeemed necessary by ER attending doctor. Result Comment: ER/E SD physician is notified/shown all ISTAT results. Critical values may be confirmed by laboratory testing if deemed necessary by ER attending doctor. Performed By: #### I SCRE #### [facility] [address] [place] [address] RITO by IFAon 10-25-2022 Antinuclear Antibodies, IFA Negative Normal [facility] Comment on above: Result Comment: Nega tive <1:80 Borderline 1:80 Positive >1:80 ICAP nomenclature: AC-0 For more information about Hep-2 cell patterns use ANApatterns.org, the official website for the International Consensus on Antinuclear Antibody (RITO) Patterns (ICAP). Performed By: #### T 7, TSH, CMP, LISANDRA, LIPA, LIPID #### [facility] [address] [place] [address] Dr. Janell Marquez ANTISTREPTOLYSIN O AB (ASO)o n 10-22-2022 Antistreptolysin O Ab 45.9 IU/mL Normal 0.0-200.0 [facility] Comment on above: Performed By: #### A SOAB #### [facility] [address] [place] [address] Dr. Janell Marquez RHEUMATOID FACTORon 10-23-19 RA Latex Turbid. <10.0 Normal <14.0 [facility] Comment on above: Performed By: #### R F #### [facility] [address] [place] [address] Dr. Janell Marquez CBC AUTO DIFFon 10-21-2022 BASO # 0.0 103/ul Normal 0.0-0.1 [facility] Comment on above: Performed By: #### T 7, TSH, CMP, LISANDRA, LIPA, LIPID #### [facility] [address] [place] [address] Dr. Janell Marquez Basophils/100 WBC (Bld) 0.4 % Normal 0.2-2.0 [facility] Comment on above: Performed By: #### T 7, TSH, CMP, LISANDRA, LIPA, LIPID #### [facility] [address] [place] [address] Dr. Janell Marquez EO # 0.0 103/ul Normal 0.0-0.7 [facility] Comment on above: Performed By: #### T 7, TSH, CMP, LISANDRA, LIPA, LIPID #### [facility] [address] [place] [address] Dr. Janell Marquez Eosinophils/100 WBC (Bld) 0.7 % Critically low 0.9-7.0 [facility] Comment on above: Performed By: #### T 7, TSH, CMP, LISANDRA, LIPA, LIPID #### [facility] [address] [place] [address] Dr. Janell Marquez Erythrocyte distribution width (RBC) [Ratio] 16.1 % Critically high 11.0-15.0 [facility] Comment on above: Performed By: #### T 7, TSH, CMP, LISANDRA, LIPA, LIPID #### [facility] [address] [place] [address] Dr. Janell Marquez Hematocrit (Bld) [Volume fraction] 48.8 % Normal 42.0-54.0 [facility] Comment on above: Performed By: #### T 7, TSH, CMP, LISANDRA, LIPA, LIPID #### [facility] [address] [place] [address] Dr. Janell Marquez Hemoglobin (Bld) [Mass/Vol] 15.3 g/dL Normal 14.0-18.0 [facility] Comment on above: Performed By: #### T 7, TSH, CMP, LISANDRA, LIPA, LIPID #### [facility] [address] [place] [address] Dr. Janell Marquez IG # 0.02 10e3/ul Normal 0.00-0.03 [facility] Comment on above: Performed By: #### T 7, TSH, CMP, LISANDRA, LIPA, LIPID #### [facility] [address] [place] [address] Dr. Janell Marquez IG % 0.4 % Normal 0.0-0.5 [facility] Comment on above: Performed By: #### T 7, TSH, CMP, LISANDRA, LIPA, LIPID #### [facility] [address] [place] [address] Dr. Janell Marquez LYMPH # 1.3 103/ul Normal 1.2-3.8 [facility] Comment on above: Performed By: #### T 7, TSH, CMP, LISANDRA, LIPA, LIPID #### [facility] [address] [place] [address] Dr. Janell Marquez Lymphocytes/100 WBC (Bld) 29.0 % Normal 20.5-60.0 [facility] Comment on above: Performed By: #### T 7, TSH, CMP, LISANDRA, LIPA, LIPID #### [facility] [address] [place] [address] Dr. Janell Marquez MANUAL DIFF REQ NO Normal [facility] Comment on above: Performed By: #### T 7, TSH, CMP, LISANDRA, LIPA, LIPID #### [facility] [address] [place] [address] Dr. Janell Marquez MCH (RBC) [Entitic mass] 23.5 pg Critically low 25.9-34.0 [facility] Comment on above: Performed By: #### T 7, TSH, CMP, LISANDRA, LIPA, LIPID #### [facility] [address] [place] [address] Dr. Janell Marquez MCHC (RBC) [Mass/Vol] 31.4 g/dL Normal 29.9-35.2 [facility] Comment on above: Performed By: #### T 7, TSH, CMP, LISANDRA, LIPA, LIPID #### [facility] [address] [place] [address] Dr. Janell Marquez MCV (RBC) [Entitic vol] 74.8 fL Critically low 80.0-94.0 [facility] Comment on above: Performed By: #### T 7, TSH, CMP, LISANDRA, LIPA, LIPID #### [facility] [address] [place] [address] Dr. Janell Marquez MONO # 0.3 103/ul Normal 0.3-0.8 [facility] Comment on above: Performed By: #### T 7, TSH, CMP, LISANDRA, LIPA, LIPID #### [facility] [address] [place] [address] Dr. Janell Marquez Monocytes/100 WBC (Bld) 7.4 % Normal 1.7-12.0 [facility] Comment on above: Performed By: #### T 7, TSH, CMP, LISANDRA, LIPA, LIPID #### [facility] [address] [place] [address] Dr. Janell Marquez NEUT # 2.9 103/ul Normal 1.4-6.5 [facility] Comment on above: Performed By: #### T 7, TSH, CMP, LISANDRA, LIPA, LIPID #### [facility] [address] [place] [address] Dr. Janell Marquez Neutrophils/100 WBC (Bld) 62.1 % Normal 43.0-75.0 [facility] Comment on above: Performed By: #### T 7, TSH, CMP, LISANDRA, LIPA, LIPID #### [facility] [address] [place] [address] Dr. Janell Marquez Platelet mean volume (Bld) [Entitic vol] 9.3 fL Critically low 9.5-13.5 [facility] Comment on above: Performed By: #### T 7, TSH, CMP, LISANDRA, LIPA, LIPID #### [facility] [address] [place] [address] Dr. Janell Marquez PLT 203 103/ul Normal 150-450 [facility] Comment on above: Performed By: #### T 7, TSH, CMP, LISANDRA, LIPA, LIPID #### [facility] [address] [place] [address] Dr. Janell Marquez RBC 6.52 106/ul Critically high 4.70-6.10 [facility] Comment on above: Performed By: #### T 7, TSH, CMP, LISANDRA, LIPA, LIPID #### [facility] [address] [place] [address] Dr. Janell Marquez WBC 4.6 103/ul Normal 4.0-11.0 [facility] Comment on above: Performed By: #### T 7, TSH, CMP, LISANDRA, LIPA, LIPID #### [facility] [address] [place] [address] Dr. Janell Marquez [facility] CRP [Mass/Vol] mg/L Normal <=1.0 [facility] Comment on above: Performed By: #### T 7, TSH, CMP, LIASNDRA, LIPA, LIPID #### [facility] [address] [place] [address] Dr. Janell Marquez SED RATE WESTERGRENon 2022 SED RATE 30 mm/hr Critically high <=[address] [facility] Comment on above: Performed By: #### T 7, TSH, CMP, LISANDRA, LIPA, LIPID #### [facility] [address] [place], [place] [address] Dr. Janell Marquez URIC ACID SERUMon 10-21-2022 Urate [Mass/Vol] 4.3 mg/dL Normal 3.5-7.2 [facility] Comment on above: Performed By: #### T 7, TSH, CMP, LISANDRA, LIPA, LIPID #### [facility] [address] [place], [place] [address] Dr. Janell Marquez CSF MANUAL DIFFon 10-12-2022 Diff Total, CSF 57 cells counted [facility] Lymph%, CSF 91 % High 50 - 90 % [facility] Vermillion%, CSF 9 % Low 10 - 50 % [facility] ic Cell count panel (CSF)on Clarity (CSF) Clear Clear [facility] Clarity (Unsp spec) Not Indicated Clear [facility] Color (CSF) Colorless Colorless [facility] Color (Spun CSF) Not Indicated Colorless [facility] CSF Tube Number Tube 1 [facility] RBC Manual cnt (CSF) [#/Vol] 3 cells/uL 0 - 5 cells/uL [facility] WBC Manual cnt (CSF) [#/Vol] 1 cells/uL 0 - 5 cells/uL [facility] GLUCOSE CSFon 10-12-2022 Glucose (CSF) [Mass/Vol] 57 mg/dL 40 - 70 mg/dL [facility] PROTEIN CSFon 10-12-2022 Protein (CSF) [Mass/Vol] 32 mg/dL 15 - 45 mg/dL [facility] TOURTELLOTTE BLOODon 10-12-2 023 [facility] ALLIED HEALTHon 05-07-2022 ALLIED HEALTH HNO ID: [id number] Author: Nicole Girard, analysis lead Service: Radiology Author Type: Pot Liner Type: Allied Health Filed: 05/07/2022 1:54 PM [...] DATA: Not applicable SIGNED BY: Nicole Huffman, analysis lead May 07, 2022 1:31 PM [facility] MRI 3D POST PROCESSINGon MRI [...] dementia protocol and 3-D post-processing using the [employer] software at an independent workstation with concurrent [...] = Focal Lesions 2 = Beginning of Marsteller 3 = Diffuse Involvement of Entire Region [...] results from the analysis charts for details. Log Cooker: MARISELA Transcribe Date/Time: May 07 2022 2:51P Dictated by : MANISH PRICE MD This examination was interpreted and the report reviewed and electronically signed by: MANISH PRICE MD on May 07 2022 3:06PM EST [id number] CN Normal [facility] MRI BRAIN WO IVCONon 05-07-2 022 [...] dementia protocol and 3-D post-processing using the [employer] software at an independent workstation with concurrent [...] = Focal Lesions 2 = Beginning of Marsteller 3 = Diffuse Involvement of Entire Region [...] results from the analysis charts for details. Log Cooker: MARISELA Transcribe Date/Time: May 07 2022 2:51P Dictated by : MANISH PRICE MD This examination was interpreted and the report reviewed and electronically signed by: MANISH PRICE MD on May 07 2022 3:06PM EST [id number] CN Normal [facility] No Panel Informationon 05-07 [facility] MRI BRAIN WO W CONon 022 MRI [...] by: LUCIE TOWNSEND Date: 2022-01-21 17:28 Normal [facility] US CAROTID ART BILon 022 US [...] by: LUCIE TOWNSEND Date: 2022-01-21 17:18 Normal [facility] H PYLORI ANTIBODY IGGon 12-19 H. PYLORI IGG ABS 0.72 Index Value Normal 0.00-0.79 [facility] Comment on above: Result Comment: Nega tive <0.80 Equivocal 0.80 - 0.89 Positive >0.89 Performed By: #### H PYLLC #### [facility] [address] [place] [address] Dr. Janell Marquez INSULINon 01-13-2022 Insulin 15.8 uIU/mL Normal 2.6-24.9 [facility] Comment on above: Performed By: #### T 7, TSH, CMP, LISANDRA, LIPA, LIPID #### [facility] [address] [address] [address] Janell Marquez VIT D 25-OH LABCORPon 2021 Vitamin D, 25-Hydroxy 29.7 ng/mL Critically low 30.0-100.0 [facility] Comment on above: Result Comment: Nelsy min D deficiency has been defined by the [place] [employer] and an Endocrine Society practice guideline as a level of serum 25-OH vitamin D less than 20 ng/mL (1,2). The Endocrine Society went on to further define vitamin D insufficiency as a level between 21 and 29 ng/mL (2). 1. IOM ([place] of [employer]). 2010. Dietary reference intakes for calcium and D. [place]iu [place]: The National Academies Press. 2. Kevin MF, Mey [place], Bharat SPENCER, et al. Evaluation, treatment, and prevention of vitamin D deficiency: an Endocrine Society clinical practice guideline. JCEM. 2010; 96(7):1911-30. Performed By: #### T 7, TSH, CMP, LISANDRA, LIPA, LIPID #### [facility] [address] [address] [address] Janell Marquez AMMONIAon 01-12-2022 Ammonia (P) [Mass/Vol] ug/dL Critically low 11-32 [facility] Comment on above: Performed By: #### T 7, TSH, CMP, LISANDRA, LIPA, LIPID #### [facility] [address] [address] [address] Janell Marquez AMYLASEon 01-12-2022 Amylase [Catalytic activity/Vol] 49 U/L Normal 25-115 [facility] Comment on above: Performed By: #### T 7, TSH, CMP, LISANDRA, LIPA, LIPID #### [facility] [address] [address] [address] Janell Marquez CBC AUTO DIFFon 01-12-2022 BASO # 0.0 103/ul Normal 0.0-0.1 [facility] Comment on above: Performed By: #### T 7, TSH, CMP, LISANDRA, LIPA, LIPID #### [facility] [address] [place] [address] Dr. Janell Marquez Basophils/100 WBC (Bld) 0.2 % Normal 0.2-2.0 [facility] Comment on above: Performed By: #### T 7, TSH, CMP, LISANDRA, LIPA, LIPID #### [facility] [address] [place] [address] Dr. Janell Marquez EO # 0.0 103/ul Normal 0.0-0.7 [facility] Comment on above: Performed By: #### T 7, TSH, CMP, LISANDRA, LIPA, LIPID #### [facility] [address] [place] [address] Dr. Janell Marquez Eosinophils/100 WBC (Bld) 0.3 % Critically low 0.9-7.0 [facility] Comment on above: Performed By: #### T 7, TSH, CMP, LISANDRA, LIPA, LIPID #### [facility] [address] [place] [address] Dr. Janell Marquez Erythrocyte distribution width (RBC) [Ratio] 16.0 % Critically high 11.0-15.0 [facility] Comment on above: Performed By: #### T 7, TSH, CMP, LISANDRA, LIPA, LIPID #### [facility] [address] [place] [address] Dr. Janell Marquez Hematocrit (Bld) [Volume fraction] 46.8 % Normal 42.0-54.0 [facility] Comment on above: Performed By: #### T 7, TSH, CMP, LISANDRA, LIPA, LIPID #### [facility] [address] [place] [address] Dr. Janell Marquez Hemoglobin (Bld) [Mass/Vol] 14.9 g/dL Normal 14.0-18.0 [facility] Comment on above: Performed By: #### T 7, TSH, CMP, LISANDRA, LIPA, LIPID #### [facility] [address] [place] [address] Dr. Janell Marquez IG # 0.01 10e3/ul Normal 0.00-0.03 [facility] Comment on above: Performed By: #### T 7, TSH, CMP, LISANDRA, LIPA, LIPID #### [facility] [address] [address] [address] Janell Marquez IG % 0.2 % Normal 0.0-0.5 [facility] Comment on above: Performed By: #### T 7, TSH, CMP, LISANDRA, LIPA, LIPID #### [facility] [address] [place] [address] Dr. Janell Marquez LYMPH # 1.0 103/ul Critically low 1.2-3.8 [facility] Comment on above: Performed By: #### T 7, TSH, CMP, LISANDRA, LIPA, LIPID #### [facility] [address] [place] [address] Dr. Janell Marquez Lymphocytes/100 WBC (Bld) 16.2 % Critically low 20.5-60.0 [facility] Comment on above: Performed By: #### T 7, TSH, CMP, LISANDRA, LIPA, LIPID #### [facility] [address] [place] [address] Dr. Janell Marquez MANUAL DIFF REQ NO Normal [facility] Comment on above: Performed By: #### T 7, TSH, CMP, LISANDRA, LIPA, LIPID #### [facility] [address] [place] [address] Dr. Janell Marquez MCH (RBC) [Entitic mass] 23.9 pg Critically low 25.9-34.0 [facility] Comment on above: Performed By: #### T 7, TSH, CMP, LISANDRA, LIPA, LIPID #### [facility] [address] [place] [address] Dr. Janell Marquez MCHC (RBC) [Mass/Vol] 31.8 g/dL Normal 29.9-35.2 [facility] Comment on above: Performed By: #### T 7, TSH, CMP, LISANDRA, LIPA, LIPID #### [facility] [address] [place] [address] Dr. Janell Marquez MCV (RBC) [Entitic vol] 75.0 fL Critically low 80.0-94.0 [facility] Comment on above: Performed By: #### T 7, TSH, CMP, LISANDRA, LIPA, LIPID #### [facility] [address] [place] [address] Dr. Janell Marquez MONO # 0.4 103/ul Normal 0.3-0.8 [facility] Comment on above: Performed By: #### T 7, TSH, CMP, LISANDRA, LIPA, LIPID #### [facility] [address] [place] [address] Dr. Janell Marquez Monocytes/100 WBC (Bld) 6.0 % Normal 1.7-12.0 [facility] Comment on above: Performed By: #### T 7, TSH, CMP, LISANDRA, LIPA, LIPID #### [facility] [address] [place] [address] Dr. Janell Marquez NEUT # 4.5 103/ul Normal 1.4-6.5 [facility] Comment on above: Performed By: #### T 7, TSH, CMP, LISANDRA, LIPA, LIPID #### [facility] [address] [place] [address] Dr. Janell Marquez Neutrophils/100 WBC (Bld) 77.1 % Critically high 43.0-75.0 [facility] Comment on above: Performed By: #### T 7, TSH, CMP, LISANDRA, LIPA, LIPID #### [facility] [address] [place] [address] Dr. Janell Marquez Platelet mean volume (Bld) [Entitic vol] 9.3 fL Critically low 9.5-13.5 [facility] Comment on above: Performed By: #### T 7, TSH, CMP, LISANDRA, LIPA, LIPID #### [facility] [address] [place] [address] Dr. Janell Marquez PLT 202 103/ul Normal 150-450 [facility] Comment on above: Performed By: #### T 7, TSH, CMP, LISANDRA, LIPA, LIPID #### [facility] [address] [place] [address] Dr. Janell Marquez RBC 6.24 106/ul Critically high 4.70-6.10 [facility] Comment on above: Performed By: #### T 7, TSH, CMP, LISANDRA, LIPA, LIPID #### [facility] [address] [address] [address] Janell Marquez WBC 5.9 103/ul Normal 4.0-11.0 [facility] Comment on above: Performed By: #### T 7, TSH, CMP, LISANDRA, LIPA, LIPID #### [facility] [address] [address] [address] Janell Marquez FREE THYROXINE INDEX T7on FTI 3.14 Normal 1.30-4.50 [facility] Comment on above: Performed By: #### T 7, TSH, CMP, LISANDRA, LIPA, LIPID #### [facility] [address] [place] [address] Dr. Janell Marquez T3U 32.0 % Critically low 33.0-40.0 [facility] Comment on above: Performed By: #### T 7, TSH, CMP, LISANDRA, LIPA, LIPID #### [facility] [address] [address] [address] Janell Marquez T4 [Mass/Vol] 9.80 ug/dL Normal 4.50-12.10 [facility] Comment on above: Performed By: #### T 7, TSH, CMP, LISANDRA, LIPA, LIPID #### [facility] [address] [place] [address] Dr. Janell Marquez GLYCOHEMOGLOBIN A1Con 2021 ADA RECOMMENDATION SEE BELOW Normal [facility] Comment on above: Result Comment: ADA RECOMMENDED LIMIT 4.0 - 6.0 ADA THERAPEUTIC TARGET < 7.0 ACTION SUGGESTED > 7.0 Performed By: #### A 1C #### [facility] [address] [place] [address] Dr. Janell Marquez Glucose [Mass/Vol] 120 mg/dL Normal [facility] Comment on above: Performed By: #### A 1C #### [facility] [address] [place] [address] Dr. Janell Marquez HbA1c (Bld) [Mass fraction] 5.8 % Normal 4.5-6.2 [facility] Comment on above: Performed By: #### A 1C #### [facility] [address] [place] [address] Dr. Janell Marquez IRONon 01-12-2022 Iron [Mass/Vol] 70.0 ug/dL Normal 65.0-175.[address] [facility] Comment on above: Performed By: #### T 7, TSH, CMP, LISANDRA, LIPA, LIPID #### [facility] [address] [place] [address] Dr. Janell Marquez LIPASEon 01-12-2022 Lipase [Catalytic activity/Vol] 72.0 U/L Critically low 73.0-393.0 [facility] Comment on above: Performed By: #### T 7, TSH, CMP, LISANDRA, LIPA, LIPID #### [facility] [address] [place] [address] Dr. Janell Marquez LIPID PROFILEon 01-12-2022 CHOL-HDL RATIO NORM SEE BELOW Normal [facility] Comment on above: Result Comment: 3.3 - 4.4 LOW RISK 4.4 - 7.1 AVERAGE RISK 7.1 - 11.0 MODERATE RISK >11.0 HIGH RISK Performed By: #### T 7, TSH, CMP, LISANDRA, LIPA, LIPID #### [facility] [address] [place] [address] Dr. Janell Marquez Cholesterol [Mass/Vol] 220 mg/dL Critically high <=200 [facility] Comment on above: Performed By: #### T 7, TSH, CMP, LISANDRA, LIPA, LIPID #### [facility] [address] [place] [address] Dr. Janell Marquez Cholesterol in HDL [Mass/Vol] 47 mg/dL Normal 40-60 [facility] Comment on above: Performed By: #### T 7, TSH, CMP, LISANDRA, LIPA, LIPID #### [facility] [address] [place] [address] Dr. Janell Marquez Cholesterol in LDL [Mass/Vol] 157.4 mg/dL Normal [facility] Comment on above: Performed By: #### T 7, TSH, CMP, LISANDRA, LIPA, LIPID #### [facility] [address] [address] [address] Janell Marquez Cholesterol.total/Cho lesterol in HDL [Mass ratio] 4.7 {ratio} Normal [facility] Comment on above: Performed By: #### T 7, TSH, CMP, LISANDRA, LIPA, LIPID #### [facility] [address] [address] [address] Janell Marquez HDL NORMAL > or = 60 mg/dl - LOW CARDIOVASCULAR RISK <40 mg/dl - HIGH CARDIOVASCULAR RISK Normal [facility] Comment on above: Performed By: #### T 7, TSH, CMP, LISANDRA, LIPA, LIPID #### [facility] [address] [address] [address] Janell Marquez LDL CALC NORMAL SEE BELOW Normal [facility] Comment on above: Result Comment: <100 mg/dl OPTIMAL 100 - 129 mg/dl NEAR OR ABOVE OPTIMAL 130 - 159 mg/dl BORDERLINE HIGH 160 - 189 mg/dl HIGH >190 mg/dl VERY HIGH Performed By: #### T 7, TSH, CMP, LISANDRA, LIPA, LIPID #### [facility] [address] [address] [address] Janell Marquez Triglyceride [Mass/Vol] 78 mg/dL Normal <=150 [facility] Comment on above: Performed By: #### T 7, TSH, CMP, LISANDRA, LIPA, LIPID #### [facility] [address] [address] [address] Janell Marquez VLDL CALC 15.6 mg/dL Normal [facility] Comment on above: Performed By: #### T 7, TSH, CMP, LISANDRA, LIPA, LIPID #### [facility] [address] [address] [address] Janell Marquez PROF 14(COMP METB)on 022 Albumin [Mass/Vol] 3.5 g/dL Normal 3.4-5.0 [facility] Comment on above: Performed By: #### T 7, TSH, CMP, LISANDRA, LIPA, LIPID #### [facility] [address] [address] [address] Janell Marquez Albumin/Globulin [Mass ratio] 0.9 {ratio} Normal [facility] Comment on above: Performed By: #### T 7, TSH, CMP, LISANDRA, LIPA, LIPID #### [facility] [address] [place] [address] Dr. Janell Marquez ALP [Catalytic activity/Vol] 69 U/L Normal 46-116 [facility] Comment on above: Performed By: #### T 7, TSH, CMP, LISANDRA, LIPA, LIPID #### [facility] [address] [place] [address] Dr. Janell Marquez ALT [Catalytic activity/Vol] 19 U/L Normal 16-63 [facility] Comment on above: Performed By: #### T 7, TSH, CMP, LISANDRA, LIPA, LIPID #### [facility] [address] [place] [address] Dr. Janell Marquez Anion gap [Moles/Vol] 12.1 mmol/L Normal [facility] Comment on above: Performed By: #### T 7, TSH, CMP, LISANDRA, LIPA, LIPID #### [facility] [address] [place] [address] Dr. Janell Marquez AST [Catalytic activity/Vol] 15 U/L Normal 15-37 [facility] Comment on above: Performed By: #### T 7, TSH, CMP, LISANDRA, LIPA, LIPID #### [facility] [address] [place] [address] Dr. Janell Marquez Bilirubin [Mass/Vol] 0.8 mg/dL Normal 0.2-1.0 [facility] Comment on above: Performed By: #### T 7, TSH, CMP, LISANDRA, LIPA, LIPID #### [facility] [address] [place] [address] Dr. Janell Marquez Calcium [Mass/Vol] 8.5 mg/dL Normal 8.5-10.1 [facility] Comment on above: Performed By: #### T 7, TSH, CMP, LISANDRA, LIPA, LIPID #### [facility] [address] [place] [address] Dr. Janell Marquez Chloride [Moles/Vol] 105 mmol/L Normal 98-107 [facility] Comment on above: Performed By: #### T 7, TSH, CMP, LISANDRA, LIPA, LIPID #### [facility] [address] [address] [address] Janell Marquez CO2 [Moles/Vol] 28.0 mmol/L Normal 21.0-32.0 [facility] Comment on above: Performed By: #### T 7, TSH, CMP, LISANDRA, LIPA, LIPID #### [facility] [address] [address] [address] Janell Marquez Creatinine [Mass/Vol] 1.11 mg/dL Normal 0.70-1.30 [facility] Comment on above: Performed By: #### T 7, TSH, CMP, LISANDRA, LIPA, LIPID #### [facility] [address] [address] [address] Janell Marquez EGFR-AF GUYANESE >60 Normal >=60 [facility] Comment on above: Performed By: #### T 7, TSH, CMP, LISANDRA, LIPA, LIPID #### [facility] [address] [address] [address] Janell Marquez EGFR-NON AF GUYANESE >60 Normal >=60 [facility] Comment on above: Performed By: #### T 7, TSH, CMP, LISANDRA, LIPA, LIPID #### [facility] [address] [address] [address] Janell Marquez Globulin (S) [Mass/Vol] 3.7 g/dL Normal [facility] Comment on above: Performed By: #### T 7, TSH, CMP, LISANDRA, LIPA, LIPID #### [facility] [address] [address] [address] Janell Marquez Glucose [Mass/Vol] 115 mg/dL Critically high 74-106 [facility] Comment on above: Performed By: #### T 7, TSH, CMP, LISANDRA, LIPA, LIPID #### [facility] [address] [address] [address] Janell Marquez Potassium [Moles/Vol] 4.1 mmol/L Normal 3.5-5.1 [facility] Comment on above: Performed By: #### T 7, TSH, CMP, LISANDRA, LIPA, LIPID #### [facility] [address] [place] [address] Dr. Janell Marquez Protein [Mass/Vol] 7.2 g/dL Normal 6.4-8.2 [facility] Comment on above: Performed By: #### T 7, TSH, CMP, LISANDRA, LIPA, LIPID #### [facility] [address] [place] [address] Dr. Janell Marquez Sodium [Moles/Vol] 141 mmol/L Normal 136-145 [facility] Comment on above: Performed By: #### T 7, TSH, CMP, LISANDRA, LIPA, LIPID #### [facility] [address] [place] [address] Dr. Janell Marquez Urea nitrogen [Mass/Vol] 16.0 mg/dL Normal 7.0-18.0 [facility] Comment on above: Performed By: #### T 7, TSH, CMP, LISANDRA, LIPA, LIPID #### [facility] [address] [place] [address] Dr. Janell Marquez Urea nitrogen/Creatinine [Mass ratio] 14.4 mg/mg Normal [facility] Comment on above: Performed By: #### T 7, TSH, CMP, LISANDRA, LIPA, LIPID #### [facility] [address] [place] [address] Dr. Janell Marquez TSHon 01-12-2022 TSH 1.412 uIU/mL Normal 0.358-3.740 [facility] Comment on above: Performed By: #### T 7, TSH, CMP, LISANDRA, LIPA, LIPID #### [facility] [address] [place] [address] Dr. Janell Marquez VIT B12 AND FOLATEon 022 Cobalamin (Vitamin B12) [Mass/Vol] 411.0 pg/mL Normal 193.0-986.0 [facility] Comment on above: Performed By: #### T 7, TSH, CMP, LISANDRA, LIPA, LIPID #### [facility] [address] [place], [place] [address] Dr. Janell Marquez FOLATE 11.10 ng/mL Normal 8.60-58.90 [facility] Comment on above: Performed By: #### T 7, TSH, CMP, LISANDRA, LIPA, LIPID #### [facility] [address] [place], [place] [address] Dr. Janell Marquez BASIC METABOLIC PANELon Calcium [Mass/Vol] 8.3 mg/dL Low 8.6-10.3 [facility] Comment on above: Order Comment: No: D o not add to previous draw Performed By: #### 0 [id number] #### [facility] [address] [place] [address], [place] Chloride [Moles/Vol] 104 mmol/L Normal 98-107 [facility] Comment on above: Order Comment: No: D o not add to previous draw Performed By: #### 0 [id number] #### [facility] [address] [place] [address], [place] CO2 [Moles/Vol] 29 mmol/L Normal 21-31 [facility] Comment on above: Order Comment: No: D o not add to previous draw Performed By: #### 0 [id number] #### [facility] [address] [place] [address], [place] Creatinine [Mass/Vol] 0.81 mg/dL Normal 0.70-1.30 [facility] Comment on above: Order Comment: No: D o not add to previous draw Performed By: #### 0 [id number] #### [facility] [address] [place] [address], [place] GFR/1.73 sq M.predicted among blacks MDRD (S/P/Bld) [Vol rate/Area] mL/min/{1.73_m2} Normal >60 [facility] Comment on above: Order Comment: No: D o not add to previous draw Performed By: #### 0 [id number] #### [facility] [address] [place] [address], [facility] GFR/1.73 sq M.predicted among non-blacks MDRD (S/P/Bld) [Vol rate/Area] mL/min/{1.73_m2} Normal >60 [facility] Comment on above: Order Comment: No: D o not add to previous draw Performed By: #### 0 [id number] #### [facility] [address] [place] [address], [facility] Glucose [Mass/Vol] 144 mg/dL High 70-100 [facility] Comment on above: Order Comment: No: D o not add to previous draw Performed By: #### 0 [id number] #### [facility] [address] [place] [address], [facility] Potassium [Moles/Vol] 3.6 mmol/L Normal 3.5-5.1 [facility] Comment on above: Order Comment: No: D o not add to previous draw Performed By: #### 0 [id number] #### [facility] [address] [place] [address], [facility] Sodium [Moles/Vol] 139 mmol/L Normal 136-145 [facility] Comment on above: Order Comment: No: D o not add to previous draw Performed By: #### 0 [id number] #### [facility] [address] [place] [address], [facility] Urea nitrogen [Mass/Vol] 9 mg/dL Normal 7-25 [facility] Comment on above: Order Comment: No: D o not add to previous draw Performed By: #### 0 [id number] #### [facility] [address] [place] [address], [facility] CBC COMPLETE BLOOD COUNTon 0 - Erythrocyte distribution width (RBC) [Ratio] 14.6 % Normal 11.5-15.0 [facility] Comment on above: Order Comment: No: D o not add to previous draw Performed By: #### 0 [id number] #### [facility] [address] [place] [address], [facility] Hematocrit (Bld) [Volume fraction] 38.8 % Low 39.0-50.0 [facility] Comment on above: Order Comment: No: D o not add to previous draw Performed By: #### 0 [id number] #### [facility] [address] [place] [address], [facility] Hemoglobin (Bld) [Mass/Vol] 12.1 g/dL Low 13.0-17.0 [facility] Comment on above: Order Comment: No: D o not add to previous draw Performed By: #### 0 [id number] #### [facility] [address] [place] [address], [facility] MCH (RBC) [Entitic mass] 23.7 pg Low 27.0-33.0 [facility] Comment on above: Order Comment: No: D o not add to previous draw Performed By: #### 0 [id number] #### [facility] [address] [place] [address], [facility] MCHC (RBC) [Mass/Vol] 31.2 g/dL Low 32.0-35.0 [facility] Comment on above: Order Comment: No: D o not add to previous draw Performed By: #### 0 0071 #### [facility] [address] [facility] [place] [address], [facility] MCV (RBC) [Entitic vol] 75.9 fL Low 82.0-98.0 [facility] Comment on above: Order Comment: No: D o not add to previous draw Performed By: #### 0 0071 #### [facility] [address] [facility] [place] [address], [facility] Nucleated RBC/100 WBC (Bld) [Ratio] 0 % Normal 0-0 [facility] Comment on above: Order Comment: No: D o not add to previous draw Performed By: #### 0 0071 #### [facility] [address] [place] [id number], [facility] PLAT CNT 182 10*3/uL Normal 150-400 [facility] Comment on above: Order Comment: No: D o not add to previous draw Performed By: #### 0 0071 #### [facility] [address] [place] [id number], [facility] RBC (Bld) [#/Vol] 5.11 10*6/uL Normal 4.20-5.70 The [facility] Comment on above: Order Comment: No: D o not add to previous draw Performed By: #### 0 0071 #### [facility] [address] [place] [address], [facility] WBC (Bld) [#/Vol] 3.64 10*3/uL Low 4.00-10.60 [facility] Comment on above: Order Comment: No: D o not add to previous draw Performed By: #### 0 0071 #### [facility] [address] [place] [address], [facility] MAGNESIUM BLOODon 07-26-2020 Magnesium [Mass/Vol] 1.8 mg/dL Low 1.9-2.7 [facility] Comment on above: Order Comment: No: D o not add to previous draw Performed By: #### 1 69, 38355 #### [facility] [address] [place] [id number], [facility] BASIC METABOLIC PANELon Calcium [Mass/Vol] 8.4 mg/dL Low 8.6-10.3 The [facility] Comment on above: Order Comment: No: D o not add to previous draw Performed By: #### 1 0, 34110 #### [facility] [address] [place] [id number], [facility] Chloride [Moles/Vol] 104 mmol/L Normal 98-107 [facility] Comment on above: Order Comment: No: D o not add to previous draw Performed By: #### 1 69, 56342 #### [facility] [address] [place] [address], [place] CO2 [Moles/Vol] 27 mmol/L Normal 21-31 The [facility] Comment on above: Order Comment: No: D o not add to previous draw Performed By: #### 1 69, 36815 #### [facility] [address] [place] [address], [place] Creatinine [Mass/Vol] 0.83 mg/dL Normal 0.70-1.30 [facility] Comment on above: Order Comment: No: D o not add to previous draw Performed By: #### 1 69, 23699 #### [facility] [address] [place] [address], [place] GFR/1.73 sq M.predicted among blacks MDRD (S/P/Bld) [Vol rate/Area] mL/min/{1.73_m2} Normal >60 [facility] Comment on above: Order Comment: No: D o not add to previous draw Performed By: #### 1 69, 70139 #### [facility] [address] [place] [address], [place] GFR/1.73 sq M.predicted among non-blacks MDRD (S/P/Bld) [Vol rate/Area] mL/min/{1.73_m2} Normal >60 [facility] Comment on above: Order Comment: No: D o not add to previous draw Performed By: #### 1 69, 50199 #### [facility] [address] [place] [address], [place] Glucose [Mass/Vol] 162 mg/dL High 70-100 [facility] Comment on above: Order Comment: No: D o not add to previous draw Performed By: #### 1 69, 11807 #### [facility] [address] [place] [id number], [facility] Potassium [Moles/Vol] 3.4 mmol/L Low 3.5-5.1 [facility] Comment on above: Order Comment: No: D o not add to previous draw Performed By: #### 1 0, 74334 #### [facility] [address] [place] [address], [facility] Sodium [Moles/Vol] 137 mmol/L Normal 136-145 The [facility] Comment on above: Order Comment: No: D o not add to previous draw Performed By: #### 1 0, 66493 #### [facility] [address] [place] [address], [facility] Urea nitrogen [Mass/Vol] 18 mg/dL Normal 7-25 [facility] Comment on above: Order Comment: No: D o not add to previous draw Performed By: #### 1 69, 41993 #### [facility] [address] [place] [id number], [facility] CBC COMPLETE BLOOD COUNTon 0 - Erythrocyte distribution width (RBC) [Ratio] 15.2 % High 11.5-15.0 [facility] Comment on above: Order Comment: No: D o not add to previous draw Performed By: #### 0 0071 #### [facility] [address] [place] [id number], [facility] Hematocrit (Bld) [Volume fraction] 40.7 % Normal 39.0-50.0 [facility] Comment on above: Order Comment: No: D o not add to previous draw Performed By: #### 0 0071 #### [facility] [address] [place] [id number], [facility] Hemoglobin (Bld) [Mass/Vol] 12.7 g/dL Low 13.0-17.0 [facility] Comment on above: Order Comment: No: D o not add to previous draw Performed By: #### 0 0071 #### [facility] [address] [place] [address], [facility] MCH (RBC) [Entitic mass] 23.3 pg Low 27.0-33.0 [facility] Comment on above: Order Comment: No: D o not add to previous draw Performed By: #### 0 0071 #### [facility] [address] [place] [address], [facility] MCHC (RBC) [Mass/Vol] 31.2 g/dL Low 32.0-35.0 [facility] Comment on above: Order Comment: No: D o not add to previous draw Performed By: #### 0 0071 #### [facility] [address] [place] [address], [facility] MCV (RBC) [Entitic vol] 74.8 fL Low 82.0-98.0 [facility] Comment on above: Order Comment: No: D o not add to previous draw Performed By: #### 0 0071 #### [facility] [address] [facility] [place] [address], [facility] Nucleated RBC/100 WBC (Bld) [Ratio] 0 % Normal 0-0 [facility] Comment on above: Order Comment: No: D o not add to previous draw Performed By: #### 0 0071 #### [facility] [address] [place] [address], [facility] PLAT CNT 207 10*3/uL Normal 150-400 [facility] Comment on above: Order Comment: No: D o not add to previous draw Performed By: #### 0 0071 #### [facility] [address] [place] [address], [facility] RBC (Bld) [#/Vol] 5.44 10*6/uL Normal 4.20-5.70 [facility] Comment on above: Order Comment: No: D o not add to previous draw Performed By: #### 0 0071 #### [facility] [address] [place] [address], [facility] WBC (Bld) [#/Vol] 3.05 10*3/uL Low 4.00-10.60 [facility] Comment on above: Order Comment: No: D o not add to previous draw Performed By: #### 0 0071 #### [facility] [address] [facility] [place] [address], [facility] MAGNESIUM BLOODon 07-25-2020 Magnesium [Mass/Vol] 1.8 mg/dL Low 1.9-2.7 [facility] Comment on above: Order Comment: No: D o not add to previous draw Performed By: #### 1 0070, 82772 #### [facility] [address] [facility] POC GLUCOSE LABon 07-25-2020 Glucose [Mass/Vol] 155 mg/dL High 70-100 [facility] Comment on above: Performed By: #### 0 0071, 93390 #### [facility] [address] [facility] *SARS-CoV-2 COVID-19on 07-24 SARS-CoV-2 (COVID-19) RNA LILLIANA+probe Ql (Unsp spec) Not detected Normal Not Detected [facility] Comment on above: Order Comment: No: D o not add to previous draw Performed By: #### 0 0071, 22349 #### [facility] [address] [place] [address], [facility] CBC W/DIFFon 07-24-2020 ABS IMM GRANS 0.0 10*3/uL Normal 0.0-0.2 The [facility] Comment on above: Performed By: #### 0 0071 #### [facility] [address] [place] [address], [facility] ABS NEUTROPHILS 2.0 10*3/uL Normal 1.6-7.6 The [facility] Comment on above: Performed By: #### 0 0071 #### [facility] [address] [place] [address], [facility] Basophils (Bld) [#/Vol] 0.0 10*3/uL Normal 0.0-0.2 [facility] Comment on above: Performed By: #### 0 0071 #### [facility] [address] [place] [address], [facility] Basophils/100 WBC (Bld) 0.4 % Normal 0.0-1.0 [facility] Comment on above: Performed By: #### 0 0071 #### [facility] [address] [place] [address], [facility] Eosinophils (Bld) [#/Vol] 0.0 10*3/uL Normal 0.0-0.5 [facility] Comment on above: Performed By: #### 0 0071 #### [facility] [address] [place] [address], [facility] Eosinophils/100 WBC (Bld) 0.7 % Normal 0.0-6.0 [facility] Comment on above: Performed By: #### 0 0071 #### [facility] [address] [place] [address], [facility] Erythrocyte distribution width (RBC) [Ratio] 15.8 % High 11.5-15.0 [facility] Comment on above: Performed By: #### 0 0071 #### [facility] [address] [place] [address], [facility] Hematocrit (Bld) [Volume fraction] 45.5 % Normal 39.0-50.0 [facility] Comment on above: Performed By: #### 0 0071 #### [facility] [address] [place] [id number], [facility] Hemoglobin (Bld) [Mass/Vol] 14.4 g/dL Normal 13.0-17.0 [facility] Comment on above: Performed By: #### 0 0071 #### [facility] [address] [place] [address], [facility] IMMATURE GRANS 0.4 % Normal 0.0-1.0 [facility] Comment on above: Performed By: #### 0 0071 #### [facility] [address] [place] [address], [facility] Lymphocytes (Bld) [#/Vol] 0.4 10*3/uL Low 1.2-4.0 [facility] Comment on above: Performed By: #### 0 0071 #### [facility] [address] [place] [address], [facility] Lymphocytes/100 WBC (Bld) 14.5 % Low 20.0-45.0 [facility] Comment on above: Performed By: #### 0 0071 #### [facility] [address] [place] [address], [facility] MCH (RBC) [Entitic mass] 23.7 pg Low 27.0-33.0 [facility] Comment on above: Performed By: #### 0 0071 #### [facility] [address] [place] [address], [facility] MCHC (RBC) [Mass/Vol] 31.6 g/dL Low 32.0-35.0 [facility] Comment on above: Performed By: #### 0 0071 #### [facility] [address] [place] [address], [facility] MCV (RBC) [Entitic vol] 75.0 fL Low 82.0-98.0 [facility] Comment on above: Performed By: #### 0 0071 #### [facility] [address] [place] [address], [facility] Monocytes (Bld) [#/Vol] 0.3 10*3/uL Normal 0.1-1.0 [facility] Comment on above: Performed By: #### 0 0071 #### [facility] [address] [place] [address], [facility] MONOS 12.3 % High 5.0-12.0 [facility] Comment on above: Performed By: #### 0 0071 #### [facility] [address] [place] [address], [facility] Neutrophils/100 WBC (Bld) 71.7 % Normal 40.0-72.0 [facility] Comment on above: Performed By: #### 0 0071 #### [facility] [address] [place] [address], [facility] Nucleated RBC/100 WBC (Bld) [Ratio] 0 % Normal 0-0 [facility] Comment on above: Performed By: #### 0 0071 #### [facility] [address] [place] [address], [facility] PLAT CNT 225 10*3/uL Normal 150-400 [facility] Comment on above: Performed By: #### 0 0071 #### [facility] [address] [facility] [place] [address], [facility] RBC (Bld) [#/Vol] 6.07 10*6/uL High 4.20-5.70 [facility] Comment on above: Performed By: #### 0 0071 #### [facility] [address] [place] [address], [facility] WBC (Bld) [#/Vol] 2.76 10*3/uL Low 4.00-10.60 [facility] Comment on above: Performed By: #### 0 0071 #### [facility] [address] [facility] [place] [address], [facility] COMP METABOLIC PANELon 07-24 Albumin [Mass/Vol] 3.7 g/dL Normal 3.5-5.7 The [facility] Comment on above: Performed By: #### 3 5200, 33080, 65119 #### [facility] [address] [place] [address], [place] ALKALINE PHOSPH 58 IU/L Normal 34-104 [facility] Comment on above: Performed By: #### 3 5200, 38217, 77526 #### [facility] [address] [place] [address], [place] ALT [Catalytic activity/Vol] 12 U/L Normal 7-52 [facility] Comment on above: Performed By: #### 3 5200, 54223, 55844 #### [facility] [address] [place] [address], [place] AST [Catalytic activity/Vol] 15 U/L Normal 13-39 [facility] Comment on above: Performed By: #### 3 5200, 14943, 75528 #### [facility] [address] [place] [address], [place] Bilirubin [Mass/Vol] 1.3 mg/dL High 0.3-1.0 [facility] Comment on above: Performed By: #### 3 5200, 00189, 16558 #### [facility] [address] [place] [address], [place] Calcium [Mass/Vol] 8.7 mg/dL Normal 8.6-10.3 [facility] Comment on above: Performed By: #### 3 5200, 99702, 29070 #### [facility] [address] [place] [address], [place] Chloride [Moles/Vol] 99 mmol/L Normal 98-107 [facility] Comment on above: Performed By: #### 3 5200, 42271, 93504 #### [facility] [address] [place] [address], [place] CO2 [Moles/Vol] 25 mmol/L Normal 21-31 [facility] Comment on above: Performed By: #### 3 5200, 09951, 32778 #### [facility] [address] [place] [address], [place] Creatinine [Mass/Vol] 1.01 mg/dL Normal 0.70-1.30 [facility] Comment on above: Performed By: #### 3 5200, 83956, 07469 #### [facility] [address] [place] [address], [place] GFR/1.73 sq M.predicted among blacks MDRD (S/P/Bld) [Vol rate/Area] mL/min/{1.73_m2} Normal >60 [facility] Comment on above: Performed By: #### 3 5200, 46333, 23429 #### [facility] [address] [place] [address], [place] GFR/1.73 sq M.predicted among non-blacks MDRD (S/P/Bld) [Vol rate/Area] mL/min/{1.73_m2} Normal >60 [facility] Comment on above: Performed By: #### 3 5200, 76984, 46377 #### [facility] [address] [place] [address], [place] Glucose [Mass/Vol] 142 mg/dL High 70-100 The [facility] Comment on above: Performed By: #### 3 5200, 04386, 33486 #### [facility] [address] [place] [address], [place] Potassium [Moles/Vol] 3.9 mmol/L Normal 3.5-5.1 [facility] Comment on above: Performed By: #### 3 5200, 26412, 96892 #### [facility] [address] [place] [address], [place] Protein [Mass/Vol] 6.6 g/dL Normal 6.0-8.3 The [facility] Comment on above: Performed By: #### 3 5200, 82560, 93685 #### [facility] [address] [place] [address], [facility] Sodium [Moles/Vol] 134 mmol/L Low 136-145 [facility] Comment on above: Performed By: #### 3 5200, 37178, 47721 #### [facility] [address] [place] [address], [facility] Urea nitrogen [Mass/Vol] 20 mg/dL Normal 7-25 [facility] Comment on above: Performed By: #### 3 5200, 81300, 33067 #### [facility] [address] [place] [address], [facility] CT ABDOMEN AND PELVIS W IV C ONTRASTon 07-24-2020 CT ABDOMEN AND PELVIS W IV CONTRAST [facility] Department of Radiology [address] [place] [id number] Patient Name: ESTELLA JEFFERY : 1965 Sex: M Age: Race: Other Pt. Location: [facility] Patient Status: E Ordered Date: 07/24/2020 [...] achievable. Electronically signed: Miguelito Balderas. Transcribed by: [email or web address], User Resident: Electronically Signed by: MIGUELITO BALDERAS @ 07/24/2020 04:14 PM Normal [facility] Comment on above: Order Comment: No: D o not add to previous draw LACTATE BLOODon 07-24-2020 Lactate [Moles/Vol] 1.0 mmol/L Normal 0.5-2.2 [facility] Comment on above: Performed By: #### 1 0054 #### [address] LIPASE BLOODon 07-24-2020 LIPASE 7 Units/L Low 11-82 [facility] Comment on above: Performed By: #### 3 5200, 33584, 73881 #### [facility] [address] PORTABLE CHEST 1 VIEWon PORTABLE CHEST 1 VIEW [facility] Department of Radiology [address] [place], [place] [id number] Patient Name: ESTELLA JEFFERY : 1965 Sex: M Age: Race: Other Pt. Location: [facility] Patient Status: E Ordered Date: 07/24/2020 [...] indicated. Electronically signed: Miguelito Balderas. Transcribed by: [email or web address], User Resident: Electronically Signed by: MIGUELITO BALDERAS @ 07/24/2020 03:58 PM Normal [facility] Comment on above: Order Comment: No: D o not add to previous draw TROPONIN-Ion 07-24-2020 Troponin I.cardiac [Mass/Vol] 0.00 ng/mL Normal 0.00-0.04 [facility] Comment on above: Result Comment: REFE RENCE RANGES: 0.00 - 0.14 ng/ml NEGATIVE 0.15 - 0.25 ng/ml INDETERMINATE > 0.25 ng/ml INDICATIVE OF AN M.I. Performed By: #### 3 5200, 75863, 78020 #### [facility] [address] [facility] [place] [address], [facility] URINALYSIS REFLEXon 07-24-19 21 Appearance (U) CLEAR Normal CLEAR [facility] Comment on above: Order Comment: No: D o not add to previous draw Performed By: #### 0 0071, 13491 #### [facility] [address] [place] [address], [facility] Bilirubin Ql (U) Negative Normal NEGATIVE [facility] Comment on above: Order Comment: No: D o not add to previous draw Performed By: #### 0 0071, 47126 #### [facility] [address] [place] [address], [place] Color (U) ANEL Abnormal YELLOW [facility] Comment on above: Order Comment: No: D o not add to previous draw Performed By: #### 0 0071, 15644 #### [facility] [address] [place] [address], [place] Glucose Ql (U) Negative Normal NEGATIVE [facility] Comment on above: Order Comment: No: D o not add to previous draw Performed By: #### 0 0071, 43700 #### [facility] [address] [place] [address], [place] Hemoglobin Ql (U) Negative Normal NEGATIVE [facility] Comment on above: Order Comment: No: D o not add to previous draw Performed By: #### 0 0071, 85783 #### [facility] [address] [place] [address], [place] KETONE 20 mg/dL Abnormal NEGATIVE [facility] Comment on above: Order Comment: No: D o not add to previous draw Performed By: #### 0 0071, 23955 #### [facility] [address] [place] [address], [place] LEUK DINO Negative Normal NEGATIVE [facility] Comment on above: Order Comment: No: D o not add to previous draw Performed By: #### 0 0071, 92738 #### [facility] [address] [place] [address], [place] MICRO NOT DONE Normal [facility] Comment on above: Order Comment: No: D o not add to previous draw Result Comment: Micr oscopics not performed on urines with negative chemical reactions unless requested in original order Performed By: #### 0 0071, 63142 #### [facility] [address] [place] [address], [place] Nitrite Ql (U) Negative Normal NEGATIVE [facility] Comment on above: Order Comment: No: D o not add to previous draw Performed By: #### 0 0071, 43763 #### [facility] [address] [place] [address], [facility] pH (U) 5.0 [pH] Normal 5.0-8.0 [facility] Comment on above: Order Comment: No: D o not add to previous draw Performed By: #### 0 0071, 98338 #### [facility] [address] [place] [address], [place] Protein Ql (U) Negative Normal NEGATIVE [facility] Comment on above: Order Comment: No: D o not add to previous draw Performed By: #### 0 0071, 95833 #### [facility] [address] [place] [address], [place] SPEC GRAV 1.084 High 1.015-1.020 [facility] Comment on above: Order Comment: No: D o not add to previous draw Result Comment: DONE BY DILUTION Performed By: #### 0 0071, 02716 #### [facility] [address] [place] [address], [facility] BASIC METABOLIC PANELon 02-0 Calcium [Mass/Vol] 8.8 mg/dL Normal 8.6-10.3 [facility] Comment on above: Order Comment: No: D o not add to previous draw Performed By: #### 0 0071, 47172 #### [facility] [address] [place] [address], [place] Chloride [Moles/Vol] 103 mmol/L Normal 98-107 [facility] Comment on above: Order Comment: No: D o not add to previous draw Performed By: #### 0 0071, 12609 #### [facility] [address] [place] [address], [place] CO2 [Moles/Vol] 27 mmol/L Normal 21-31 [facility] Comment on above: Order Comment: No: D o not add to previous draw Performed By: #### 0 0071, 64154 #### [facility] [address] [place] [address], [facility] Creatinine [Mass/Vol] 0.87 mg/dL Normal 0.70-1.30 [facility] Comment on above: Order Comment: No: D o not add to previous draw Performed By: #### 0 0071, 77103 #### [facility] [address] [place] [address], [facility] GFR/1.73 sq M.predicted among blacks MDRD (S/P/Bld) [Vol rate/Area] mL/min/{1.73_m2} Normal >60 [facility] Comment on above: Order Comment: No: D o not add to previous draw Performed By: #### 0 0071, 45936 #### [facility] [address] [place] [address], [facility] GFR/1.73 sq M.predicted among non-blacks MDRD (S/P/Bld) [Vol rate/Area] mL/min/{1.73_m2} Normal >60 [facility] Comment on above: Order Comment: No: D o not add to previous draw Performed By: #### 0 0071, 85362 #### [facility] [address] [place] [address], [facility] Glucose [Mass/Vol] 156 mg/dL High 70-100 [facility] Comment on above: Order Comment: No: D o not add to previous draw Performed By: #### 0 0071, 60400 #### [facility] [address] [place] [address], [facility] Potassium [Moles/Vol] 3.9 mmol/L Normal 3.5-5.1 [facility] Comment on above: Order Comment: No: D o not add to previous draw Performed By: #### 0 0071, 03446 #### [facility] [address] [place] [address], [facility] Sodium [Moles/Vol] 136 mmol/L Normal 136-145 [facility] Comment on above: Order Comment: No: D o not add to previous draw Performed By: #### 0 0071, 48086 #### [facility] [address] [place] [id number], [facility] Urea nitrogen [Mass/Vol] 8 mg/dL Normal 7-25 [facility] Comment on above: Order Comment: No: D o not add to previous draw Performed By: #### 0 0071, 67307 #### [facility] [address] [place] [address], [facility] CBC COMPLETE BLOOD COUNTon 0 07-23-2020 Erythrocyte distribution width (RBC) [Ratio] 15.1 % High 11.5-15.0 [facility] Comment on above: Order Comment: No: D o not add to previous draw Performed By: #### 0 0071 #### [facility] [address] [place] [address], [facility] Hematocrit (Bld) [Volume fraction] 44.1 % Normal 39.0-50.0 [facility] Comment on above: Order Comment: No: D o not add to previous draw Performed By: #### 0 0071 #### [facility] [address] [place] [id number], [facility] Hemoglobin (Bld) [Mass/Vol] 13.4 g/dL Normal 13.0-17.0 [facility] Comment on above: Order Comment: No: D o not add to previous draw Performed By: #### 0 0071 #### [facility] [address] [place] [id number], [facility] MCH (RBC) [Entitic mass] 23.1 pg Low 27.0-33.0 [facility] Comment on above: Order Comment: No: D o not add to previous draw Performed By: #### 0 0071 #### [facility] [address] [place] [address], [facility] MCHC (RBC) [Mass/Vol] 30.4 g/dL Low 32.0-35.0 [facility] Comment on above: Order Comment: No: D o not add to previous draw Performed By: #### 0 0071 #### [facility] [address] [place] [id number], [facility] MCV (RBC) [Entitic vol] 76.0 fL Low 82.0-98.0 [facility] Comment on above: Order Comment: No: D o not add to previous draw Performed By: #### 0 0071 #### [facility] [address] [place] [place] [address], [facility] Nucleated RBC/100 WBC (Bld) [Ratio] 0 % Normal 0-0 [facility] Comment on above: Order Comment: No: D o not add to previous draw Performed By: #### 0 0071 #### [facility] [address] [place] [address], [facility] PLAT CNT 190 10*3/uL Normal 150-400 [facility] Comment on above: Order Comment: No: D o not add to previous draw Performed By: #### 0 0071 #### [facility] [address] [facility] [place] [address], [facility] RBC (Bld) [#/Vol] 5.80 10*6/uL High 4.20-5.70 [facility] Comment on above: Order Comment: No: D o not add to previous draw Performed By: #### 0 0071 #### [facility] [address] [place] [id number], [facility] WBC (Bld) [#/Vol] 7.98 10*3/uL Normal 4.00-10.60 [facility] Comment on above: Order Comment: No: D o not add to previous draw Performed By: #### 0 0071 #### [facility] [address] [place] [address], [place] MAGNESIUM BLOODon 07-23-2020 Magnesium [Mass/Vol] 1.9 mg/dL Normal 1.9-2.7 [facility] Comment on above: Order Comment: No: D o not add to previous draw Performed By: #### 0 0071, [id number] #### [facility] [address] [place] [address], [place] POC GLUCOSE LABon 07-23-2020 Glucose [Mass/Vol] 140 mg/dL High 70-100 The [facility] Comment on above: Performed By: #### 0 0071 #### [facility] [address] [place] [address], [place] Glucose [Mass/Vol] 155 mg/dL High 70-100 [facility] Comment on above: Performed By: #### 0 0071, [id number] #### [facility] [address] [place] [address], [place] Glucose [Mass/Vol] 164 mg/dL High 70-100 [facility] Comment on above: Performed By: #### 0 0071 #### [facility] [address] [place] [address], [place] BASIC METABOLIC PANELon Calcium [Mass/Vol] 8.3 mg/dL Low 8.6-10.3 [facility] Comment on above: Order Comment: No: D o not add to previous draw Performed By: #### 0 0071, 90015 #### [facility] [address] [place] [address], [place] Chloride [Moles/Vol] 103 mmol/L Normal 98-107 [facility] Comment on above: Order Comment: No: D o not add to previous draw Performed By: #### 0 0071, [id number] #### [facility] [address] [place] [address], [facility] CO2 [Moles/Vol] 26 mmol/L Normal 21-31 The [facility] Comment on above: Order Comment: No: D o not add to previous draw Performed By: #### 0 0071, [id number] #### [facility] [address] [place] [address], [place] Creatinine [Mass/Vol] 0.90 mg/dL Normal 0.70-1.30 [facility] Comment on above: Order Comment: No: D o not add to previous draw Performed By: #### 0 0071, [id number] #### [facility] [address] [place] [address], [place] GFR/1.73 sq M.predicted among blacks MDRD (S/P/Bld) [Vol rate/Area] mL/min/{1.73_m2} Normal >60 [facility] Comment on above: Order Comment: No: D o not add to previous draw Performed By: #### 0 0071, 83439 #### [facility] [address] [place] [address], [place] GFR/1.73 sq M.predicted among non-blacks MDRD (S/P/Bld) [Vol rate/Area] mL/min/{1.73_m2} Normal >60 [facility] Comment on above: Order Comment: No: D o not add to previous draw Performed By: #### 0 0071, 91641 #### [facility] [address] [place] [address], [place] Glucose [Mass/Vol] 166 mg/dL High 70-100 [facility] Comment on above: Order Comment: No: D o not add to previous draw Performed By: #### 0 0071, [id number] #### [facility] [address] [place] [address], [place] Potassium [Moles/Vol] 4.1 mmol/L Normal 3.5-5.1 [facility] Comment on above: Order Comment: No: D o not add to previous draw Performed By: #### 0 0071, 40906 #### [facility] [address] [place] [address], [place] Sodium [Moles/Vol] 136 mmol/L Normal 136-145 [facility] Comment on above: Order Comment: No: D o not add to previous draw Performed By: #### 0 0071, 14814 #### [facility] [address] [place] [address], [facility] Urea nitrogen [Mass/Vol] 12 mg/dL Normal 7-25 [facility] Comment on above: Order Comment: No: D o not add to previous draw Performed By: #### 0 0071, [id number] #### [facility] [address] [place] [address], [facility] CBC COMPLETE BLOOD COUNTon - Erythrocyte distribution width (RBC) [Ratio] 14.9 % Normal 11.5-15.0 [facility] Comment on above: Order Comment: No: D o not add to previous draw Performed By: #### 0 0071, 76539 #### [facility] [address] [place] [address], [facility] Hematocrit (Bld) [Volume fraction] 42.8 % Normal 39.0-50.0 [facility] Comment on above: Order Comment: No: D o not add to previous draw Performed By: #### 0 0071, 39396 #### [facility] [address] [place] [address], [place] Hemoglobin (Bld) [Mass/Vol] 13.3 g/dL Normal 13.0-17.0 [facility] Comment on above: Order Comment: No: D o not add to previous draw Performed By: #### 0 0071, [id number] #### [facility] [address] [place] [address], [place] MCH (RBC) [Entitic mass] 23.4 pg Low 27.0-33.0 [facility] Comment on above: Order Comment: No: D o not add to previous draw Performed By: #### 0 0071, 63523 #### [facility] [address] [place] [address], [facility] MCHC (RBC) [Mass/Vol] 31.1 g/dL Low 32.0-35.0 [facility] Comment on above: Order Comment: No: D o not add to previous draw Performed By: #### 0 0071, 08645 #### [facility] [address] [place] [id number], [facility] MCV (RBC) [Entitic vol] 75.2 fL Low 82.0-98.0 [facility] Comment on above: Order Comment: No: D o not add to previous draw Performed By: #### 0 0071, 93342 #### [facility] [address] Nucleated RBC/100 WBC (Bld) [Ratio] 0 % Normal 0-0 [facility] Comment on above: Order Comment: No: D o not add to previous draw Performed By: #### 0 0071, 04215 #### [facility] [address] [place] [place] [address], [facility] PLAT CNT 211 10*3/uL Normal 150-400 [facility] Comment on above: Order Comment: No: D o not add to previous draw Performed By: #### 0 0071, [id number] #### [facility] [address] [place] [address], [facility] RBC (Bld) [#/Vol] 5.69 10*6/uL Normal 4.20-5.70 [facility] Comment on above: Order Comment: No: D o not add to previous draw Performed By: #### 0 0071, 09754 #### [facility] [address] [place] [id number], [facility] WBC (Bld) [#/Vol] 8.55 10*3/uL Normal 4.00-10.60 [facility] Comment on above: Order Comment: No: D o not add to previous draw Performed By: #### 0 0071, [id number] #### [facility] [address] MAGNESIUM BLOODon 07-22-2020 Magnesium [Mass/Vol] 2.0 mg/dL Normal 1.9-2.7 [facility] Comment on above: Order Comment: No: D o not add to previous draw Performed By: #### 0 0071, 91750 #### [facility] [address] Operative Reporton Operative Report MR#: [id number] [facility] Pt. Name: Estella Jeffery Room #: [id number] Discharge Date: Birthdate: 1965 OPERATIVE REPORT DATE [...] Izaguirre M.D. Date Trans: 07/21/2020 10:04 P/mmo [id number] cc: Jae Lopez M.D. [address] [place] [address] [place] [facility] POC GLUCOSE LABon 07-22-2020 Glucose [Mass/Vol] 142 mg/dL High 70-100 [facility] Comment on above: Performed By: #### 0 0071, 76137 #### [facility] [address] [place] [address], [place] Glucose [Mass/Vol] 113 mg/dL High 70-100 [facility] Comment on above: Performed By: #### 0 0071, [id number] #### [facility] [address] [place] [address], [place] Glucose [Mass/Vol] 153 mg/dL High 70-100 [facility] Comment on above: Performed By: #### 0 0071, 54072 #### [facility] [address] [place] [address], [place] Glucose [Mass/Vol] 127 mg/dL High 70-100 [facility] Comment on above: Performed By: #### 0 0071, 83368 #### [facility] [address] [place] [address], [place] Glucose [Mass/Vol] 176 mg/dL High 70-100 [facility] Comment on above: Performed By: #### 0 0071 #### [facility] [address] [place] [address], [place] *MRSA/MSSA DNA NASALon 07-21 *MRSA/MSSA DNA NASAL Clinical Report: (D ) Specimen: NASAL SWAB Collected: 07/21/2020 00:00 Status: Final Last Updated: 07/21/2020 15:28 (1) No collection time noted on specimen or requisition. The collection time recorded is the time of receipt in the lab. MSSA DNA (Final) Methicillin Susceptible Staphylococcus aureus DNA Detected MRSA DNA (Final) Negative Normal [facility] Comment on above: Order Comment: No: D o not add to previous draw Performed By: #### 0 0071, [id number] #### [facility] [address] [place] [address], [facility] POC GLUCOSE LABon 07-21-2020 Glucose [Mass/Vol] 168 mg/dL High 70-100 The [facility] Comment on above: Performed By: #### 0 0071 #### [facility] [address] [place] [address], [place] Glucose [Mass/Vol] 211 mg/dL High 70-100 [facility] Comment on above: Performed By: #### 0 0071, 04205 #### [facility] [address] [place] [address], [facility] Glucose [Mass/Vol] 117 mg/dL High 70-100 [facility] Comment on above: Performed By: #### 0 0071, [id number] #### [facility] [address] [place] [place] [address], [facility] *SARS-CoV-2 COVID-19on 07-18 SARS-CoV-2 (COVID-19) RNA LILLAINA+probe Ql (Unsp spec) Not detected Normal Not Detected [facility] Comment on above: Order Comment: No: D o not add to previous draw Performed By: #### 0 0071, 89848 #### [facility] [address] [place] [address], [facility] BASIC METABOLIC PANELon 06-21 Calcium [Mass/Vol] 9.2 mg/dL Normal 8.6-10.3 [facility] Comment on above: Performed By: #### 0 0071 #### [facility] [address] [place] [address], [place] Chloride [Moles/Vol] 100 mmol/L Normal 98-107 [facility] Comment on above: Performed By: #### 0 0071 #### [facility] [address] [place] [address], [facility] CO2 [Moles/Vol] 30 mmol/L Normal 21-31 [facility] Comment on above: Performed By: #### 0 0071 #### [facility] [address] [place] [address], [facility] Creatinine [Mass/Vol] 1.01 mg/dL Normal 0.70-1.30 [facility] Comment on above: Performed By: #### 0 0071 #### [facility] [address] [place] [address], [facility] GFR/1.73 sq M.predicted among blacks MDRD (S/P/Bld) [Vol rate/Area] mL/min/{1.73_m2} Normal >60 [facility] Comment on above: Performed By: #### 0 0071 #### [facility] [address] [place] [address], [facility] GFR/1.73 sq M.predicted among non-blacks MDRD (S/P/Bld) [Vol rate/Area] mL/min/{1.73_m2} Normal >60 [facility] Comment on above: Performed By: #### 0 0071 #### [facility] [address] [place] [address], [facility] Glucose [Mass/Vol] 121 mg/dL High 70-100 [facility] Comment on above: Performed By: #### 0 0071 #### [facility] [address] [place] [address], [facility] Potassium [Moles/Vol] 4.4 mmol/L Normal 3.5-5.1 [facility] Comment on above: Performed By: #### 0 0071 #### [facility] [address] Sodium [Moles/Vol] 135 mmol/L Low 136-145 [facility] Comment on above: Performed By: #### 0 0071 #### [facility] [address] Urea nitrogen [Mass/Vol] 14 mg/dL Normal 7-25 [facility] Comment on above: Performed By: #### 0 0071 #### [facility] [address] CBC W/DIFFon 07-18-2020 ABS IMM GRANS 0.0 10*3/uL Normal 0.0-0.2 The [facility] Comment on above: Performed By: #### 0 0071 #### [facility] [address] ABS NEUTROPHILS 2.5 10*3/uL Normal 1.6-7.6 The [facility] Comment on above: Performed By: #### 0 0071 #### [facility] [address] [place] [address], [facility] Basophils (Bld) [#/Vol] 0.0 10*3/uL Normal 0.0-0.2 [facility] Comment on above: Performed By: #### 0 0071 #### [facility] [address] Basophils/100 WBC (Bld) 0.9 % Normal 0.0-1.0 [facility] Comment on above: Performed By: #### 0 0071 #### [facility] [address] [place] [address], [facility] Eosinophils (Bld) [#/Vol] 0.1 10*3/uL Normal 0.0-0.5 [facility] Comment on above: Performed By: #### 0 0071 #### [facility] [address] [facility] [place] [address], [facility] Eosinophils/100 WBC (Bld) 1.2 % Normal 0.0-6.0 [facility] Comment on above: Performed By: #### 0 0071 #### [facility] [address] [place] [address], [facility] Erythrocyte distribution width (RBC) [Ratio] 14.8 % Normal 11.5-15.0 [facility] Comment on above: Performed By: #### 0 0071 #### [facility] [address] [facility] [place] [address], [facility] Hematocrit (Bld) [Volume fraction] 47.6 % Normal 39.0-50.0 [facility] Comment on above: Performed By: #### 0 0071 #### [facility] [address] [facility] [place] [address], [facility] Hemoglobin (Bld) [Mass/Vol] 14.5 g/dL Normal 13.0-17.0 [facility] Comment on above: Performed By: #### 0 0071 #### [facility] [address] [place] [address], [facility] IMMATURE GRANS 0.2 % Normal 0.0-1.0 [facility] Comment on above: Performed By: #### 0 0071 #### [facility] [address] [facility] [place] [address], [facility] Lymphocytes (Bld) [#/Vol] 1.4 10*3/uL Normal 1.2-4.0 [facility] Comment on above: Performed By: #### 0 0071 #### [facility] [address] [place] [address], [facility] Lymphocytes/100 WBC (Bld) 32.9 % Normal 20.0-45.0 [facility] Comment on above: Performed By: #### 0 0071 #### [facility] [address] MCH (RBC) [Entitic mass] 23.2 pg Low 27.0-33.0 [facility] Comment on above: Performed By: #### 0 0071 #### [facility] [address] MCHC (RBC) [Mass/Vol] 30.5 g/dL Low 32.0-35.0 [facility] Comment on above: Performed By: #### 0 0071 #### [facility] [address] MCV (RBC) [Entitic vol] 76.0 fL Low 82.0-98.0 [facility] Comment on above: Performed By: #### 0 0071 #### [facility] [address] Monocytes (Bld) [#/Vol] 0.3 10*3/uL Normal 0.1-1.0 [facility] Comment on above: Performed By: #### 0 0071 #### [facility] [address] MONOS 7.5 % Normal 5.0-12.0 [facility] Comment on above: Performed By: #### 0 0071 #### [facility] [address] Neutrophils/100 WBC (Bld) 57.3 % Normal 40.0-72.0 [facility] Comment on above: Performed By: #### 0 0071 #### [facility] [address] Nucleated RBC/100 WBC (Bld) [Ratio] 0 % Normal 0-0 [facility] Comment on above: Performed By: #### 0 0071 #### [facility] [address] [place] [address], [facility] PLAT CNT 222 10*3/uL Normal 150-400 [facility] Comment on above: Performed By: #### 0 0071 #### [facility] [address] RBC (Bld) [#/Vol] 6.26 10*6/uL High 4.20-5.70 [facility] Comment on above: Performed By: #### 0 0071 #### [facility] [address] WBC (Bld) [#/Vol] 4.28 10*3/uL Normal 4.00-10.60 [facility] Comment on above: Performed By: #### 0 0071 #### [facility] [address] PROTHROMBIN TIMEon 1 INR Coag (PPP) [Relative time] 0.95 {INR} Normal 0.91-1.16 [facility] Comment on above: Result [...] CHEST 1995;108:[id number]. Performed By: #### 0 0071, [id number] #### [facility] [address] [place] [address], [facility] PT Coag (PPP) [Time] 12.7 s Normal 12.3-14.8 [facility] Comment on above: Result Comment: ALL RESULTS MUST BE INTERPRETED WITH RESPECT TO BLOOD DRAWING ARTIFACT OR DILUTION ERROR OF ANTICOAGULANT AT THE TIME OF SAMPLING. Performed By: #### 0 007, [id number] #### [facility] [address] Vital Signs Date Time Vital Sign Value Performing Clinician Facility 11-06-2024 13:44-0400 Body height 165.1 cm Jaz Mici PA-C Work Phone: [facility] [employer] [facility] 11-06-2024 13:44-0400 Body mass index (BMI) [Ratio] 27.46 kg/m2 Jaz Mici PA-C Work Phone: [facility] [employer] [facility] 11-06-2024 13:44-0400 Body weight 74.84 kg Jaz Mici PA-C [facility] 11-06-2024 13:44-0400 Diastolic blood pressure 80 mm[Hg] Jaz Mici PA-C Work Phone: [facility] [employer] [facility] 11-06-2024 13:44-0400 Heart rate 71 /min Jaz Mici PA-C Work Phone[facility] 11-06-2024 13:44-0400 SaO2% (BldA) [Mass fraction] 96 % Jaz Mici PA-C Work Phone: [facility] 11-06-2024 13:44-0400 Systolic blood pressure 132 mm[Hg] Jaz Mici PA-C Work Phone: [facility] [employer] [facility] 10-15-2024 14:44-0400 Body height 165.1 cm Rachele Lopez MD Work Phone: [facility] 10-15-2024 14:44-0400 Body mass index (BMI) [Ratio] 27.31 kg/m2 Rachele Lopez MD Work Phone: [facility] 10-15-2024 14:44-0400 Body weight 74.44 kg Rachele Lopez MD Work Phone: [facility] 10-15-2024 14:44-0400 Diastolic blood pressure 61 mm[Hg] Rachele Lopez MD Work Phone: [facility] 10-15-2024 14:44-0400 Heart rate 100 /min Rachele Lopez MD Work Phone: [facility] 10-15-2024 14:44-0400 Systolic blood pressure 93 mm[Hg] Rachele Lopez MD Work Phone: [facility] 07-30-2024 12:33-0500 Body mass index (BMI) [Ratio] 27.96 kg/m2 Fidelina Spanower HISTORICAL GUIDE.[employer] Work Phone: [facility] 07-30-2024 12:33-0500 Body temperature 97.59 [degF] Fidelina Spanower HISTORICAL GUIDE.[employer] Work Phone: [facility] 07-30-2024 12:33-0500 Body weight 76.2 kg Fidelina Spanower HISTORICAL GUIDE.[employer] Work Phone: [facility] 07-30-2024 12:33-0500 Diastolic blood pressure 63 mm[Hg] Fidelina Spanower HISTORICAL GUIDE.[employer] Work Phone: [facility] 07-30-2024 12:33-0500 Heart rate 84 /min Fidelina Spanower HISTORICAL GUIDE.C[employer]ER Work Phone: [facility] 07-30-2024 12:33-0500 Systolic blood pressure 99 mm[Hg] Fidelina Spanower HISTORICAL GUIDE.CITY CONTR[employer]ER Work Phone: [facility] 07-22-2024 08:01-0500 Diastolic blood pressure 70 mm[Hg] Luiz Shipley MD Work Phone: [facility] 07-22-2024 08:01-0500 Heart rate 92 /min Luiz Shipley MD Work Phone: [facility] 07-22-2024 08:01-0500 SaO2% (BldA) [Mass fraction] 95 % Luiz Shipley MD Work Phone: [facility] 07-22-2024 08:01-0500 Systolic blood pressure 105 mm[Hg] Luiz Shipley MD Work Phone: [facility] 07-22-2024 05:00-0500 Body temperature 97.7 [degF] Luiz Shipley MD Work Phone: [facility] 07-22-2024 05:00-0500 Respiratory rate 15 /min Luiz Shipley MD Work Phone: [facility] 07-12-2024 07:00-0500 Body mass index (BMI) [Ratio] 30.78 kg/m2 Luiz Shipley MD Work Phone: [facility] 07-12-2024 07:00-0500 Body weight 83.9 kg Luiz Shipley MD Work Phone: [facility] 06-21-2024 10:23-0500 Heart rate 69 /min Danni Lue [facility] 06-21-2024 10:23-0500 SaO2% (BldA) [Mass fraction] 98 % Danni Lue [facility] 06-21-2024 10:23-0500 Diastolic blood pressure 88 mm[Hg] Danni Lue [facility] 06-21-2024 10:23-0500 Mean blood pressure 104 mm[Hg] Danni Lue [facility] 06-21-2024 10:23-0500 Systolic blood pressure 135 mm[Hg] Danni Lue [facility] 03-15-2024 14:28-0400 Body height 165.1 cm MD Jae Lopez Work Phone: [facility] 03-15-2024 14:28-0400 Body weight 73.93 kg MD Jae Lopez Work Phone: [facility] 01-11-2024 09:54-0400 Blood Pressure Location Danni Lue [facility] 01-11-2024 09:54-0400 Body temperature 98.6 [degF] Danni Lue [facility] 01-11-2024 09:54-0400 Diastolic blood pressure 72 mm[Hg] Danni Lue [facility] 01-11-2024 09:54-0400 Heart rate 57 /min Danni Lue [facility] 01-11-2024 09:54-0400 Respiratory rate 16 /min Danni Lue [facility] 01-11-2024 09:54-0400 Systolic blood pressure 119 mm[Hg] Danni Lue [facility] 10-12-2022 12:01-0400 Diastolic blood pressure 74 mm[Hg] Miguelito Chicas APRN.CITY CONTR[employer]LLER Work Phone: [facility] 10-12-2022 12:01-0400 Heart rate 58 /min Miguelito Chicas APRN.CITY CONTR[employer]ER Work Phone: [facility] 10-12-2022 12:01-0400 Systolic blood pressure 117 mm[Hg] Miguelito Chicas APRN.CITY CONTROLLER Work Phone: [facility] 04-30-2022 10:56-0500 Body weight 86.23 kg Gera Cardona DO Work Phone: [facility] 04-30-2022 10:56-0500 Diastolic blood pressure 91 mm[Hg] Gera Cardona DO Work Phone: [facility] 04-30-2022 10:56-0500 Heart rate 82 /min Gera Cardona DO Work Phone: [facility] 04-30-2022 10:56-0500 SaO2% (BldA) [Mass fraction] 97 % Gera Cardona DO Work Phone: [facility] 04-30-2022 10:56-0500 Systolic blood pressure 139 mm[Hg] Gera Cardona DO Work Phone: [facility] 04-26-2022 03:51-0500 Body height 165.1 cm Roosevelt Merlos MD Work Phone: [facility] 04-26-2022 03:51-0500 Body weight 83.6 kg Roosevelt Merlos MD Work Phone: [facility] 04-22-2022 16:41-0400 Diastolic blood pressure 100 mm[Hg] Brenda Francis HISTORICAL GUIDE.CITY CONTROLLER Work Phone: [facility] 04-22-2022 16:41-0400 Systolic blood pressure 156 mm[Hg] Brenda Francis HISTORICAL GUIDE.CITY CONTROLLER Work Phone: [facility] 04-22-2022 16:17-0400 Body temperature 98.29 [degF] Brenda Francis HISTORICAL GUIDE.CITY CONTROLLER Work Phone: [facility] 04-22-2022 16:17-0400 Body weight 86.27 kg Brenda Francis HISTORICAL GUIDE.CITY CONTROLLER Work Phone: [facility] 04-22-2022 16:17-0400 Heart rate 98 /min Brenda Francis HISTORICAL GUIDE.CITY CONTROLLER Work Phone: [facility] 04-22-2022 16:17-0400 SaO2% (BldA) [Mass fraction] 100 % Brenda Blanco HISTORICAL GUIDE.CITY CONTROLLER Work Phone: [facility] Encounters Encounter Date Encounter Type Care Provider Facility Start: 02-15-2025 End: 02-15-2025 ambulatory BAILEY BERG [facility] Start: 12-18-2024 End: 12-18-2024 Telephone encounter Roberta Bui RN [facility] Comment on above: MRI Start: 11-06-2024 End: 11-06-2024 Office outpatient visit 15 minutes [facility] PA-C Work Phone: [facility] Comment on above: Orthostatic hypotens ion (Primary Dx); Bradycardia Start: 11-06-2024 End: 11-06-2024 ambulatory [facility] Start: 10-26-2024 End: 10-26-2024 Chart abstracting Scanning Provider External [facility] Start: 10-23-2024 End: 10-23-2024 Telephone encounter [facility] Comment on above: Hypotension Start: 10-19-2024 End: 10-24-2024 Evaluation and management of inpatient [facility] Start: 10-15-2024 End: 10-15-2024 Office outpatient new 45 minutes Rachele Lopez MD Work Phone: [facility] Neurology, A Department of [facility] Comment on above: 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); Colloid cyst of third ventricle (CMS-HCC); Episode of confusion Start: 10-15-2024 End: 10-15-2024 ambulatory RACHELE LOPEZ [facility] Start: 07-30-2024 End: 07-30-2024 ambulatory FIDELINA FISHER Facility:[facility] Start: 07-30-2024 End: 07-30-2024 Patient encounter procedure Fidelina Fisher HISTORICAL GUIDE.CITY CONTROLLER Work Phone: [facility] Comment on above: History of traumatic brain injury (Primary Dx); Dementia, unspecified dementia severity, unspecified dementia type, unspecified whether behavioral, psychotic, or mood disturbance or anxiety (HCC); Cognitive deficits; Impaired mobility and ADLs; 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) Start: 07-22-2024 End: 07-22-2024 Evaluation and management of inpatient CHANDLER PALMA [facility] Start: 07-20-2024 End: 07-20-2024 Telephone encounter Janice Mcdermott MD Work Phone: Neurology Start: 07-18-2024 End: 07-20-2024 Telephone encounter Narciso Guerra MD Work Phone: Neurology Comment on above: Patient Question Start: 07-17-2024 End: 07-18-2024 Telephone encounter Narciso Guerra MD Work Phone: Neurology Comment on above: Patient Question Start: 07-12-2024 End: 07-12-2024 Telephone encounter Kelly Johnson [facility] Comment on above: patient concern Start: 07-11-2024 ambulatory Danni Graham Facility:[facility] Start: 07-10-2024 ambulatory [facility] Start: 07-10-2024 End: 07-10-2024 Evaluation and management of inpatient [facility] Start: 07-08-2024 End: 07-08-2024 Evaluation and management of inpatient [facility] Start: 07-08-2024 End: 07-22-2024 Evaluation and management of inpatient [facility] Start: 07-06-2024 End: 07-06-2024 Evaluation and management of inpatient ELANA VALERIO [facility] Start: 07-06-2024 End: 07-22-2024 Evaluation and management of inpatient Nichol Heath MD Work Phone: [facility] - GEN 8 Acute Comment on above: Dementia with behavi oral disturbance ([facility]-HCC) (Primary Dx); Status post colostomy, follow-up exam ([facility]) Start: 07-03-2024 ambulatory [facility] Start: 07-03-2024 End: 07-05-2024 Emergency department patient visit [facility] Start: 06-25-2024 ambulatory Elliott Romeo acility:[facility] Start: 06-24-2024 End: 06-24-2024 Emergency department patient visit MAITE NiaChong MORRIS [facility] Start: 06-21-2024 End: 06-21-2024 ambulatory Danni Graham [facility] Start: 06-21-2024 End: 06-21-2024 Patient encounter procedure Danni Graham [facility] Start: 05-02-2024 End: 06-27-2024 Pre-admission assessment Danni Graham [facility] Start: 03-15-2024 End: 03-15-2024 Patient encounter procedure MD Jae Lopez Work Phone: [facility] [place] Work Phone: Start: 03-15-2024 End: 03-15-2024 ambulatory MD Jae Lopez Work Phone: [facility] Work Phone: Start: 03-09-2024 End: 03-09-2024 Patient Msg Lisandra Jason HISTORICAL GUIDE.CITY CONTROLLER Work Phone: Neurology Comment on above: refill Start: 03-09-2024 End: 03-09-2024 Refill Agustina Plascencia MD Work Phone: Neurology Comment on above: Refill Request Start: 01-25-2024 End: 01-25-2024 ambulatory Danni Graham Facility:[facility] Start: 01-25-2024 End: 01-25-2024 Off-Site Danni Graham [facility] Start: 01-11-2024 End: 01-11-2024 ambulatory Danni Graham Facility:[facility] Start: 01-11-2024 End: 01-11-2024 Patient encounter procedure Danni Graham [facility] Start: 12-21-2023 ambulatory Danni Graham Facility:[facility] Start: 12-06-2023 Refill Agustina orellana MD Work Phone: Neurology Comment on above: Refill Request donepezil refill Start: 03-07-2023 Patient entered into trial Tabby Naqvi Research Coordinator [facility] Start: 03-07-2023 Telephone encounter Tabby locke Research Coordinator Neurology Comment on above: Research ([facility] (IRB [id number])) Start: 02-08-2023 E-mail encounter fro m caregiver Sonal Weinstein APRN.CITY CONTROLLER Work Phone: [facility] Start: 02-08-2023 Follow-up encounter Sonal Beltran HISTORICAL GUIDE.CITY CONTROLLER Work Phone: Neurology Comment on above: sleep follow up Start: 02-08-2023 Patient entered into trial Tabby Naqvi Research Coordinator [facility] Start: 02-08-2023 Telephone encounter Tabby locke Research Coordinator Neurology Comment on above: Research ([facility] (IRB [id number]) Interest) Start: 02-04-2023 Telephone encounter Sonal Beltran HISTORICAL GUIDE.CITY CONTROLLER Work Phone: Neurology Comment on above: PAP Therapy Follow U p (12/18/22 - 01/16/[address] FROM DME ) Start: 02-02-2023 Refill Agustina orellana MD Work Phone: Neurology Comment on above: Refill Request Start: 01-13-2023 Telephone encounter Kary Gaxiola RN Work Phone: Neurology Comment on above: Returning Patient's Call Start: 12-03-2022 Telephone encounter Sonal Beltran APRN.CITY CONTROLLER Work Phone: Neurology Comment on above: PAP Rx Faxed (DME: S HS ) Start: 12-02-2022 End: 12-02-2022 Telemedicine consultation with patient Sonal Weinstein APRN.CITY CONTROLLER Work Phone: [facility] Start: 12-02-2022 End: 12-02-2022 ambulatory Agustina Plascencia MD Work Phone: Neurology Comment on above: Forms from [employer] Obstructive sleep ap carol (Primary Dx); Primary central sleep apnea; Hyperlipidemia, unspecified hyperlipidemia type Start: 12-02-2022 E-mail encounter fro m caregiver Agustina Plascencia MD Work Phone: [facility] Start: 11-17-2022 End: 11-17-2022 ambulatory Agustina Plascencia MD Work Phone: Neurology Comment on above: Alzheimer's disease (HCC) (Primary Dx) Start: 11-17-2022 End: 11-17-2022 Telemedicine consultation with patient Agustina Plascencia MD Work Phone: [facility] Start: 10-21-2022 End: 10-22-[address] JAE LOPEZ . Facility: Start: 10-12-2022 End: 10-12-2022 Patient encounter procedure Miguelito Chicas APRN.CITY CONTROLLER Work Phone: Neurology Comment on above: Memory loss (Primary Dx); Encounter for lumbar puncture Start: 10-12-2022 End: 10-12-2022 Patient encounter status Miguelito Aviva VELARDE.CITY CONTROLLER Work Phone: Neurology Start: 08-12-2022 Chart abstracting Leah Mckeon RN Ne urology Start: 08-11-2022 End: 08-11-2022 ambulatory Agustina Plascencia MD Work Phone: Neurology Comment on above: Memory loss (Primary Dx) Start: 08-11-2022 End: 08-11-2022 Telemedicine consultation with patient Agustina Plascencia MD Work Phone: [facility] Start: 08-10-2022 E-mail encounter fro m caregiver [facility] Provider MARY ROMO [facility] Start: 08-10-2022 Patient encounter procedure Cc Provider Neurology Comment on above: cancel appointment Start: 07-21-2022 End: 07-21-2022 ambulatory Agustina Plascencia MD Work Phone: Neurology Comment on above: Memory loss Start: 07-21-2022 End: 07-21-2022 Telemedicine consultation with patient Agustina Plascencia MD Work Phone: [facility] Start: 05-07-2022 ambulatory NARCISO GUERRA Facility:[facility] Start: 05-07-2022 End: 05-07-2022 Subsequent hospital visit by physician Michelle [facility] (Istat/3t) Work Phone: [facility] MRI Comment on above: Cognitive changes [R 41.89] Start: 04-30-2022 End: 04-30-2022 Patient encounter procedure Gera Cardona DO Work Phone: Neurology Comment on above: SHELBY (obstructive sle ep apnea) (Primary Dx) Start: 04-28-2022 ambulatory Narciso Guerra MD Work Phone: Neurology Comment on above: sleep study results Start: 04-28-2022 E-mail encounter fro m caregiver Narciso Guerra MD Work Phone: [facility] Start: 04-27-2022 ambulatory Narciso Guerra MD Work Phone: Neurology Comment on above: lab results Start: 04-27-2022 E-mail encounter fro m caregiver Narciso Guerra MD Work Phone: [facility] Start: 04-25-2022 Chart abstracting Roosevelt Merlos MD Work Phone: Neurology Start: 04-22-2022 End: 04-22-2022 Office outpatient visit 15 minutes Brenda Blanco APRN.CITY CONTROLLER Work Phone: [facility] Comment on above: Bilateral impacted c [...] Evaluation and management of inpatient JAE LOPEZ Facility:[facility] Start: 07-21-2020 End: 07-23-2020 ambulatory NAYA IZAGUIRRE Facility:[facility] Procedures Date Procedure Procedure Detail [...] Work Phone: Start: 10-12-2022 TOURTELLOTTE BLOOD Og hehope Aviva HISTORICAL GUIDE.CITY CONTROLLER Work Phone: Start: 10-12-2022 Cell count misc body fluids w/differential count Miguelito Aviva HISTORICAL GUIDE.CITY CONTROLLER Work Phone: Start: 10-12-2022 CSF MANUAL DIFF Miguelito Chicas HISTORICAL GUIDE.CITY CONTROLLER Work Phone: Start: 10-12-2022 Glucose body fluid o ther than blood Miguelito Aviva HISTORICAL GUIDE.CITY CONTROLLER Work Phone: Start: 05-07-2022 MRI 3D POST [...] H/O: colostomy Status post colostomy, follow-up exam ([facility]) Nichol Heath MD Work Phone: Repair of artery Danni Graham Plan of Treatment Date Care Activity Detail Author Start: 11-23-2029 DTaP,Tdap and Td Vaccines (2 - Td or Tdap) DTaP,Tdap and Td Vaccines (2 - Td or Tdap) [facility] Start: 11-23-2029 Urine microalbumin profile DTaP,Tdap,Td Vaccine (2 - Td or Tdap) [facility] Start: 07-17-2027 Diabetes Screening Diabetes Screenin g [facility] Start: 11-06-2025 Adult BMI Screening Adult BMI Screen ing [facility] Start: 11-06-2025 Tobacco Screening Tobacco Screening [facility] Start: 10-24-2025 Adult BMI Screening Adult BMI Screen ing [facility] Start: 10-22-2025 Adult BMI Screening Adult BMI Screen ing [facility] Start: 10-16-2025 Tobacco Screening Tobacco Screening [facility] Start: 10-15-2025 Adult BMI Follow Up Plan Adult BMI Follow Up Plan [facility] Start: 10-15-2025 Adult BMI Screening Adult BMI Screen ing [facility] Start: 10-15-2025 Depression Screening Depression Scre ing [facility] Start: 10-15-2025 Tobacco Screening Tobacco Screening [facility] Start: 07-11-2025 Tobacco Screening Tobacco Screening [facility] Start: 07-10-2025 Adult BMI Screening Adult BMI Screen ing [facility] Start: 04-22-2025 DIABETES SCREEN DIABETES SCREEN [facility] Start: 04-22-2025 Diabetes Screening Diabetes Screenin g [facility] Start: 04-22-2025 End: 04-22-2025 Patient encounter procedure 04/22/2025 2:00 PM EST Office Visit [facility], A Department of [address] [place] [address] Rachele Lopez MD [address] [place] [address] [address] [place] [address] [facility] Neurology, A Department of [facility] Start: 04-10-2025 End: 04-10-2025 Patient encounter procedure 04/10/2025 12:30 PM EDT Appointment [facility] MRI [address] [place] [id number] Gaurang Corrales MD [address] [facility] [address] [place], [place] [id number] [facility] Start: 03-27-2025 End: 03-27-2025 Patient encounter procedure 03/27/2025 1:15 PM EDT Procedure visit [facility] On [address] [phone] [facility] On [facility] Start: 02-18-2025 Influenza vaccination Influenza Vacc ine [facility] Start: 01-17-2025 End: 07-20-2025 MR Brain WO and W contrast IV MR brain with and without contrast Imaging Routine Dementia with behavioral disturbance ([facility]-H[facility]) Expected: 01/17/2025 (Approximate), Expires: 07/20/2025 [facility] Work Phone: Comment on above: Expected: 01/17/2025 (Approximate), Expires: 07/20/2025 Start: 12-18-2024 End: 12-18-2024 Patient encounter procedure 12/18/2024 2:10 PM EDT Office Visit [facility] [address] [place] [address] Beto Villar MD [address] [facility] [address] [place] [address] [facility] Start: 12-18-2024 End: 12-18-2025 MR Brain WO and W contrast IV MR brain with and without contrast Imaging Routine Dementia with behavioral disturbance (CMS-HCC) Expected: 12/18/2024, Expires: 12/18/2025 [facility] Work Phone: Comment on above: Expected: 12/18/2024 , Expires: 12/18/2025 Start: 11-06-2024 End: 11-06-2024 Patient encounter procedure 11/06/2024 1:45 PM EDT Office Visit [facility] [address] [phone] Jaz Art PA-C [address] [place] [address] [facility] Start: 10-31-2024 End: 10-31-2024 Patient encounter procedure 10/31/2024 4:30 PM EDT Office Visit [facility] [address] [address] Isak Elliott MD [address] [place] [address] 3mo f/u [facility] Comment on above: 3mo f/u Start: 08-15-2024 End: 08-15-2024 ambulatory 08/15/2024 9:30 AM EST OT/PT/Speech Visit [facility] [address] [place] [phone] Shweta Hi, [facility]-[employer] [address] [place] [address] History of traumatic brain injury [Z87.820] [facility] Comment on above: History of traumatic brain injury [Z87.820] Start: 07-30-2024 End: 07-30-2024 Patient encounter procedure 07/30/2024 12:40 PM EST Office Visit [facility] [address] [place] [address] Fidelina Fisher, HISTORICAL GUIDE.CITY CONTROLLER [address] [place] [address] TBI (Traumatic Brain Injury) [facility] Comment on above: TBI (Traumatic Brain Injury) Start: 02-19-2024 Covid-19 Vaccine () Covid-19 Vaccine () [facility] Start: 02-19-2024 COVID-19 Vaccine () COVID-19 Vaccine () [facility] Start: 02-19-2024 Influenza vaccination C [facility] Start: 06-20-2023 Behavioral Health Screening Behavioral Health Screening [facility] Start: 02-18-2023 Covid-19 Vaccine () Covid-19 Vaccine () [facility] Start: 02-18-2023 Influenza vaccination C [facility] Start: 10-12-2022 End: 12-12-2022 ADMARK PHOSPHO-TAU TOTAL-TAU/AB42 CSF [facility] Work Phone: Comment on above: Expected: 10/12/2022 , Expires: 12/12/2022 Start: 10-12-2022 End: 12-12-2022 Reagin Ab [Titer] in Cerebral spinal fluid by VDRL [facility] Work Phone: Comment on above: Expected: 10/12/2022 , Expires: 12/12/2022 Start: 08-11-2022 End: 10-11-2022 Cell count panel - Cerebral spinal fluid CSF CELL COUNT Lab Routine Memory loss Expected: 08/11/2022, Expires: 10/11/2022 [facility] Work Phone: Comment on above: Expected: 08/11/2022 , Expires: 10/11/2022 Start: 08-11-2022 End: 10-11-2022 Glucose [Mass/volume] in Cerebral spinal fluid GLUCOSE CSF Lab Routine Memory loss Expected: 08/11/2022, Expires: 10/11/2022 [facility] Work Phone: Comment on above: Expected: 08/11/2022 , Expires: 10/11/2022 Start: 08-11-2022 End: 10-11-2022 MISC SEND OUT TST 1 MISC SEND OUT TST 1 Lab Routine Memory loss Expected: 08/11/2022, Expires: 10/11/2022 [facility] Work Phone: Comment on above: Expected: 08/11/2022 , Expires: 10/11/2022 Start: 08-11-2022 End: 10-11-2022 Protein [Mass/volume] in Cerebral spinal fluid PROTEIN CSF Lab Routine Memory loss Expected: 08/11/2022, Expires: 10/11/2022 [facility] Work Phone: Comment on above: Expected: 08/11/2022 , Expires: 10/11/2022 Start: 08-11-2022 End: 10-11-2022 Reagin Ab [Titer] in Cerebral spinal fluid by VDRL VDRL CSF Lab Routine Memory loss Expected: 08/11/2022, Expires: 10/11/2022 [facility] Work Phone: Comment on above: Expected: 08/11/2022 , Expires: 10/11/2022 Start: 08-11-2022 End: 10-11-2022 TOURTELLOTTE BLOOD TOURTELLOTTE BLOOD Lab Routine Memory loss Expected: 08/11/2022, Expires: 10/11/2022 [facility] Work Phone: Comment on above: Expected: 08/11/2022 , Expires: 10/11/2022 Start: 06-20-2022 DEPRESSION ASSESSMENT DEPRESSION ASS ESSMENT [facility] Start: 02-18-2022 Influenza vaccination INFLUENZA (#1) [facility] Start: 06-20-2021 DEPRESSION ASSESSMENT DEPRESSION ASS ESSMENT [facility] Start: 05-29-2021 COVID-19 VACCINE (3 - Booster for Pfizer series) COVID-19 VACCINE (3 - Booster for Pfizer series) [facility] Start: 05-29-2021 COVID-19 VACCINE (3 - Pfizer series) COVID-19 VACCINE (3 - Pfizer series) [facility] Start: 2020 PROSTATE CANCER SCREENING DISCUSSION PROSTATE CANCER SCREENING DISCUSSION [facility] Start: 2020 Prostate specific antigen measurement Prostate Cancer Screening Discussion [facility] Start: 2015 Administration of varicella zoster vaccine Zoster (Shingles) Vaccine (1 of 2) [facility] Start: 2015 Pneumococcal Vaccine : 50+ (1 of 1 - PCV) Pneumococcal Vaccine: 50+ (1 of 1 - PCV) [facility] Start: 2015 SHINGRIX VACCINE (1 of 2) SHINGRIX VACCINE (1 of 2) [facility] Start: 2010 COLOGUARD (FIT-DNA) COLOGUARD (FIT-D NA) [facility] Start: 2010 Colonoscopy COLONOSCOPY [facility] Start: 2010 COLORECTAL CANCER SCREENING COLORECTAL CANCER SCREENING [facility] Start: [address] COLONOGRAPHY [facility] Start: 2010 DIABETES SCREEN DIABETES SCREEN [facility] Start: 2010 FECAL OCCULT BLOOD FECAL OCCULT BLOO D [facility] Start: 2010 Screening for malign ant neoplasm of colon [facility] Start: 2010 SIGMOIDOSCOPY SIGMOIDOSCOPY [facility] Start: 2000 Lipid 1996 panel - S flakita or Plasma Lipid Screening [facility] Start: 2000 Lipid panel Lipid Screening [facility] Start: 2000 LIPID SCREEN LIPID SCREEN [facility] Start: 1984 Hepatitis B Vaccine (1 of 3 - 19+ 3-dose series) Hepatitis B Vaccine (1 of 3 - 19+ 3-dose series) [facility] Start: 1984 Urine microalbumin profile [facility] Start: 1983 Adult BMI Follow Up Plan Adult BMI Follow Up Plan [facility] Start: 1983 Anxiety Screening Anxiety Screening [facility] Start: 1983 Depression Screening Depression Scre [facility] Start: 1983 HEPATITIS C SCREENING HEPATITIS C [facility] Start: 1983 Hepatitis C screening Hepatitis C [facility] Start: 1983 HIV SCREENING HIV SCREENING [facility] Start: 1977 Depression Screening Depression Scre [facility] Start: 1965 HEPATITIS B (1 of 3 - 3-dose series) HEPATITIS B (1 of 3 - 3-dose series) [facility] Start: 1965 Hepatitis B Vaccine (1 of 3 - 3-dose series) Hepatitis B Vaccine (1 of 3 - 3-dose series) [facility] End: 07-06-2024 ECG 12 lead ECG 12 lead ECG Routine Once for 1 Occurrences starting 07/06/2024 until 07/06/2024 [employer] Comment on above: Once for 1 Occurrenc es starting 07/06/2024 until 07/06/2024 End: 10-15-2025 EEG EEG Neurology Routine Dementia with behavioral disturbance (CMS-HCC) Episode of confusion 1 Occurrences starting 10/15/2024 until 10/15/2025 [employer] Work Phone: Comment on above: 1 Occurrences starti ng 10/15/2024 until 10/15/2025 End: 08-11-2023 LUMBAR PUNCTURE/YESICA LUMBAR PUNCTURE/YESICA NEUROLOGY Routine Memory loss 1 Occurrences starting 08/11/2022 until 08/11/2023 [facility] Work Phone: Comment on above: 1 Occurrences starti ng 08/11/2022 until 08/11/2023 End: 10-13-2023 LUMBAR PUNCTURE/YESICA LUMBAR PUNCTURE/YESICA NEUROLOGY Routine Memory loss 1 Occurrences starting 10/12/2022 until 10/13/2023 [facility] Work Phone: Comment on above: 1 Occurrences starti ng 10/12/2022 until 10/13/2023 Oxygen Therapy - Maintain SpO2: 90%; *BRUISE TRIMMER Guidelines for O2: Yes; Document: \[email or web address]\epi c\EPIC_Reference\Orders\ Respiratory Care Guidelines\CPG Oxygen 2022.pdf Oxygen Therapy - Maintain SpO2: 90%; *BRUISE TRIMMER Guidelines for O2: Yes; Document: \[email or web address]\ep ic\EPIC_Reference\Order s\Respiratory Care Guidelines\CPG Oxygen 2022.pdf Respiratory Care Routine As Needed until discontinued starting 07/06/2024 [employer] Comment on above: As Needed until disc ontinued starting 07/06/2024 End: 01-01-2024 PAP TITRATION PSG (CPAP, BIPAP, ASV) PAP TITRATION PSG (CPAP, BIPAP, ASV) Procedures Routine Obstructive sleep apnea 1 Occurrences starting 12/02/2022 until 01/01/2024 [facility] Work Phone: Comment on above: 1 [...] Procedures Routine Bilateral impacted cerumen Ordered: 04/22/2022 [facility] Work Phone: Comment on above: Ordered: 04/22/2022 TOURTELLOTTE CSF TOURTELLOTTE CS F Lab Routine Memory loss Ordered: 08/11/2022 [facility] Work Phone: Comment on above: Ordered: 08/11/2022 [facility] Immunizations Immunization Date Immunization Notes Care Provider Fa cility 11-24-2019 tetanus toxoid, redu zenia diphtheria toxoid, and acellular pertussis vaccine, adsorbed Kelly Johnson [facility] Payers Date Payer Category Payer Medicare DEVOTED MEDICARE [facility] [place] PPO [id number] 2024-Present [phone] [address] [place] [id number] PPO [id number] 2024 Medicare HMO [id number]. [id number] 2024 Private Health Insurance DEVOTED MEDICARE [id number] 2024 Medicare [id number] 2024 Self-pay 2024 Unknown [id number] 2024 Unknown [id number] 2021 Unknown [id number]. 1.13.159.2. [id number] 1965 Unknown [id number] 2.16.840.1.183579.3.579.2. 647 1965 Unknown [id number] 2.16.840.1.952139.3.579.2. 647 1965 Unknown [id number] 2.16.840.1.485095.3.579.2. 593 1965 Unknown [id number] 2.16.840.1.985782.3.579.2. 593 1965 Unknown [id number] 2.16.840.1.748653.3.579.2. 593 1965 Unknown [id number] 2.16.840.1.749350.3.579.2. 1286 1965 Unknown [id number] 2.16.840.1.716208.3.579.2. 727 1965 Unknown [id number] 2.16.840.1.761409.3.579.2. 727 1965 Unknown [id number] 2.16.840.1.012778.3.579.2. 727 1965 Unknown [id number] 2.16.840.1.596433.3.579.2. 1285 1965 Unknown [id number] 2.16.840.1.679910.3.579.2. 128 1965 Unknown [id number] 2.16840.1.479815.3.579.2. 1285 1965 Unknown [id number] 2.16840.1.531384.3.579.2. 1285 1965 Unknown [id number] 2.0.1.145771.3.579.2. 1285 1965 Unknown [id number] 2.840.1.198016.3.579.2. 1285 1965 Unknown [id number] 2.840.1.607894.3.579.2. 1285 1965 Unknown [id number] 2.840.1.685965.3.579.2. 1285 1965 Unknown [id number] 2.0.1.683453.3.579.2. 1285 1965 Unknown [id number] 2.16840.1.716144.3.579.2. 1285 1965 Unknown [id number] 2.16840.1.219878.3.579.2. 1285 1965 Unknown [id number] 2.16840.1.019429.3.579.2. 1285 1965 Unknown [id number] 2.840.1.204626.3.579.2. 1285 1965 Unknown [id number] 2.16840.1.818131.3.579.2. 1286 1965 Unknown [id number] 2.16.840.1.545306.3.579.2. 1286 1965 Unknown [id number] 2.16.840.1.043843.3.579.2. 1286 1965 Unknown [id number] 2.16.840.1.521605.3.579.2. 1286 1965 Unknown [id number] 2.16.840.1.418499.3.579.2. 1286 1959 Unknown [id number] 1959 Unknown [id number] Unknown [id number] 2.16.840.1.254502.3.579.2. 531 Unknown [id number] 2.16.840.1.640948.3.579.2. 531 Social History Date Type Detail Facility Start: 04-22-2022 End: 11-06-2024 Tobacco smoking status NHIS Never smoked tobacco [facility] Start: 04-22-2022 End: 11-06-2024 Tobacco use and exposure Smokeless tobacco non-user [facility] Start: 04-22-2022 End: 07-30-2024 Alcohol intake Ex-drinker (finding) [facility] Start: 1965 Sex Assigned At Not on file [facility] Start: 04-12-2022 End: 05-07-2022 Exposure to SARS-CoV-2 (event) Not sure [facility] Start: 07-31-2020 End: 10-12-2022 History of Social function [facility] Start: 07-31-2020 End: 10-12-2022 Tobacco use panel [facility] Adult Depression Screening Assessment 2 [facility] Start: 1965 Sex Assigned At [facility] Start: 07-11-2024 End: 11-06-2024 Alcoholic beverage intake Current non-drinker of alcohol (finding) [facility] Start: 01-23-2015 Sex Male (finding) [facility] Has the [employer], or water company threatened to shut off services in your home in past 12Mo No [employer] Medical Equipment Procedure Code Equipment Code [...] Assessment Result Facility 06-21-2024 Functional Status No [facility] 01-11-2024 Functional Status N/A [facility] Mental Status Date Assessment Result Facility [facility] Clinical Notes 07-24-2020 to 02-15-2025 Telephone Encounter - Roberta Bui RN - 12/18/2024 11:44 AM EDTTelephone Encounter - Roberta Bui RN - 12/18/2024 11:44 AM Sophia Art PA-C - 11/06/2024 1:45 PM EDTPatient InstructionsAttachments Note Date & Type Note Facility 02-15-2025 Note Attestation signed by Bailey Berg MD at 02/15/2025 2:05 PM By using the attestations below, the signing clinician agrees that I have read and verify that the documentation has been personally reviewed by me and ensure that the documentation accurately reflects the encounter. GC: I personally saw this patient on the day of the encounter, performed the jimenez portion(s) of the service and participated in the management and confirm the resident's documentation. Please note there may be an additional personal documentation from me. Department of Psychiatry Diagnostic Assessment Time In: 1100 Time Out: 1200 Encounter Type: In-Person Patient Name: Estella Jeffery MRN / CSN: [id number] Date of / Age: 1 1965 y.o. 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 Care Team Encounter Provider: Bailey Berg MD Referring Physician (if known): No ref. provider found Other Referral Sources: Specialist PCP (if known): No primary care provider on file. Additional Provider(s): Source of Information: Source of Information: Patient, Spouse, and 2 sisters Special Needs: Special Needs: Mobility and Complete care provided by spouse Subjective Reason for Referral Referral from neurology for management of behavioral disturbances in the context of dementia Identifying Information: Estella Jeffery is a 59 y.o. male Chief Complaint Behavioral disturbances secondary to dementia History of Present Illness: Estella Jeffery is a 59 y.o. male with past psychiatric history of Alzheimer's dementia presenting to the [facility] for a psychiatric evaluation. Estella Jeffery is a 59 year old male with a 3-year history of early-onset Alzheimer's disease, who presents for psychiatric evaluation for management of significant behavioral disturbances. He is accompanied by his , Kari, and sister, Lina, who are reliable historians. He was reportedly high-functioning, driving, and socially active until mid-May 2024, when he sustained a fall down three steps at home. He did lose consciousness at this time, and was subsequently taken to the hospital for evaluation where initial CT scans and x-rays were unremarkable. Following the fall, he reported not feeling right and pointed to his forehead, and his family noted a rapid decline in his overall functioning. Approximately two to three weeks later, he experienced an acute onset of severe behavioral changes. These included what the family described as a PTSD-like episode, where he awoke disoriented, did not recognize his , and perceived her as an intruder in their home. He subsequently experienced paranoid delusions and visual hallucinations, such as believing someone had broken into the house, and became aggressive in the context of this confusion. These psychotic symptoms and behaviors were not present prior to the fall. He was subsequently hospitalized again in early June for altered mental status and further neurological evaluation. An MRI performed on 07/10/2024 was reportedly interpreted by family as showing a mild TBI. However, given the lack of acute bleed or swelling on imaging, it is more likely these findings represent pre-existing brain atrophy and vascular changes consistent with his underlying neurocognitive disorder. It is believed the fall served as a significant stressor that precipitated an acceleration of his dementia progression. The primary goal of today's consultation is to review and optimize his psychotropic medication regimen to manage these behavioral symptoms while mitigating significant adverse effects he is experiencing, including symptomatic hypotension, bradycardia, and thrombocytopenia. Mood Symptoms: Patient denies mood symptoms. Anxiety Symptoms: Patient denies anxiety symptoms. Psychosis: Please refer to symptoms as outlined in the HPI. Attention-Deficit Hyperactivity Disorder: Patient does not meet criteria. Other Disorders: Patient does not spontaneously report symptoms of other DSM-V diagnoses. Substance Use: Patient denies substance use. Past Psychiatric History Inpatient Psychiatric History: Hospitalizations: Denies Current or previous non-suicidal self-injury: Denies Previous Suicide Attempts: Denies Previous Homicide Attempts: Denies Outpatient Psychiatric History: Currently Active in Psychiatric Care: Denies Previous Providers: Denies Previous Therapists: Denies Psychiatric Medication Trials: Rexulti 1 mg BID, Haldol 5 mg QID, Ativan 1 mg Q6H PRN - all caused paradoxical agitation Depakote - thrombocytopenia, leukopenia Aricept - bradycardia Seroquel - effect (more content not included)... [facility] 12-18-2024 Miscellaneous Notes Kari calls stating that Estella needed to be sedated for his last MRI due to anxiety. Discussed options and ultimately, decision for MRI with anesthesia is to be ordered due to his issues. documented in this encounter [facility] 12-18-2024 Telephone encounter Note Kari calls stating that Estella needed to be sedated for his last MRI due to anxiety. Discussed options and ultimately, decision for MRI with anesthesia is to be ordered due to his issues. [facility] 11-06-2024 History of Present illness Narrative Estella Jeffery Date of visit: 11/06/2024 Date of : 1965 Age: 59 y.o. Patient Active Problem List Diagnosis Laceration of left ulnar artery Dementia with behavioral disturbance ([facility]) Altered mental status Status post colostomy, follow-up exam ([facility]) Bradycardia Orthostatic hypotension Allergies Allergen Reactions Ativan [...] Bowen MD at [facility] COLONOSCOPY JANICE 3YEARS AGO COLOSTOMY CLOSURE PUNCTURE LUMBAR N/A 07/10/2024 Performed by Zach Nails MD at [facility] Family History Problem Relation Age of Onset [...] of early-onset Alzheimer's dementia underwent testing at [facility] Patient is stable from a cardiovascular standpoint he may follow up in about 9 months or sooner as needed. TODAYS ORDERS No orders of the defined types were placed in this encounter. FOLLOW UP Return in about 1 year (around 11/06/2025). PCP: JAE LOPEZ MD Referring Physician: Jae Lopez MD [address] [place] [address] Jaz Art PA-C 11/06/24 1513 documented [facility] this encounter [facility] Instructions Jaz Art PA-C - 11/06/2024 [...] in 9 months documented in this encounter [facility] 10-23-2024 Miscellaneous Notes Contract: [facility] [phone] [facility] Erik re hypotension room B646 tx germaine ---I sent a secure chat message to Shayla Haynes documented in this encounter [facility] 10-23-2024 Telephone encounter Note Contract: [employer] [phone] [facility] Erik re hypotension room B646 tx germaine ---I sent a secure chat message to Shayla Haynes [facility] 10-15-2024 History of Present illness Narrative Chief [...] had previously been seeing neurology at the [facility]. His last clinic visit related to this was through a telemedicine encounter on 11/17/[address] Agustina Plascencia. Based on that note Mr. Jeffery noticed more significant memory issues around 2021. 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 Mr. Jeffery was admitted to the [facility] on 07/20/2024 - 07/20/2024 after experiencing more [...] and cranio-cervical junction. Flow voids documented in [place] and dural venous sinuses. No [...] hemoglobin 13.9, hematocrit 41.8, platelets 180 From [facility] note dated 11/17/2022 : MRI [...] left ulnar artery Dementia with behavioral disturbance ([facility]) Altered mental status Status post colostomy, follow-up exam ([facility]) Past Surgical History: Procedure Laterality Date ARM EXPLORATION WITH REPAIR LACERATED ULNAR ARTERY Left 11/24/2019 Performed by Skyler Bowen MD at [facility] COLONOSCOPY JANICE 3YEARS AGO COLOSTOMY CLOSURE PUNCTURE LUMBAR N/A 07/10/2024 Performed by Zach Nails MD at [facility] Family History Problem Relation Age of Onset [...] that he can be managed at home. nursing surgical services director was offered but they would like to [...] for this visit: Dementia with behavioral disturbance (CMS-HCC) - Ambulatory referral to Psychiatry ([facility]); Future - EEG; Future Colloid cyst of third ventricle ([facility]) - [facility] [place] [place]; Future Episode of confusion - EEG; Future documented in this encounter [facility] 07-30-2024 Note HNO ID: [id number] Author: FIDELINA FISHER APRN.CITY CONTROLLER Service: ? Author Type: Nurse Practitioner Type: [...] in May 2024. He was evaluated at [facility] following the fall. Per he had an episode with agitation. Per family he was not displaying agitation prior to the fall. Family notes prior to his fall he was driving and independent with his care. He is now requiring a lot of assistance with care. Subjective: Patient presents with: Consult Family notes concerns with coordination. He has been [facility] his dementia. Per his family his dementia symptoms seems to have worsen following his fall. 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 Per family he had a rough admission with jalen at [facility] in [place]. He was started on Seroquel at bedtime. [...] Cognition: - has underline dementia. Following with [facility], [facility]. Sleep: - He has been having issues [...] and cranio-cervical junction. Flow voids documented in [place] and dural venous sinuses. No [...] jaundice UE SAB EF EE WE WF [employer] R 5/5 5/5 5/5 5/5 5/5 5/5 L 5/5 5/5 5/5 5/5 5/5 5/5 LE HF KF KE PF DF R 5/5 5/5 5/5 5/5 5/5 L 10/22 10/22 10/22 10/22 10/22 IMPRESSION: Estella Jeffery is a 59 year old male. PMHx of TBI and HDL. He had an unwitnessed fall down the stairs. Per family he had a fall in May 2024. He was evaluated at [facility] following the fall. He arrives today with his sister and for management following his TBI. Per and sister he has had significant change with his cognition since the f (more content not included)... [facility] 07-30-2024 History of Present illness Narrative July 30, 2024 Reason for visit: Patient presents with: Consult Previous Visit: No previous PM&R. HPI (brief) Estella Jeffery is a 59 year old male. PMHx of TBI and HDL. He had an unwitnessed fall down the stairs. Per family he had a fall in May 2024. He was evaluated at [facility] following the fall. Per he had an [...] surrounding doctors appointments, he associates doctors with residential. Per family he had a rough admission with jalen at [facility] in [place]. He was started on Seroquel at bedtime. [...] Cognition: - has underline dementia. Following with psychiatric hospital, [facility]. Sleep: - He has been having issues [...] and cranio-cervical junction. Flow voids documented in [place] and dural venous sinuses. No [...] jaundice UE SAB EF EE WE WF [employer] R 5/5 5/5 5/5 5/5 5/5 5/5 [...] in May 2024. He was evaluated at [facility] following the fall. He arrives today with [...] 294.20, ICD10: F03.90 - Will get updated [place] and scan in records. - CONSULT TO [...] which included preparing to see the patient, [id number] patient care, completing clinical documentation, performing a medically appropriate examination, counseling and educating the patient/family/caregiver, ordering medications, tests, or procedures and communicating results to the patient/family/caregiver. Fidelina Fisher APRN.CNP Physical Medicine & Rehab [facility] documented in this encounter [facility] 07-22-2024 Nurse Note AVS discussed with patient and family, no further questions about discharge. No further needs identified. Patient taken downstairs by wheelchair to be driven home by . [facility] 07-22-2024 Plan of care note Problem: [...] at the bedside 7. Instruct patient/ patient artists' booking representative about use of safety devices 8. Include patient/ patient artists' booking representative in decisions related to safety Outcome: Adequate for Discharge Problem: Knowledge Deficit Goal: Patient/patient artists' booking representative demonstrates understanding of disease process, treatment [...] =/> 25 or indicated by [facility] Assessment Goal: Patient should be free from fall Description: Interventions: 1. [place] to environment 2. Hourly rounds addressing the [...] non-skid footwear 11. Teach patient and patient artists' booking representative to maintain environment for safety and [...] (cane, walker) within reach 19. Request patient artists' booking representative bring adaptive equipment/mobility aids from home or obtain and provide as needed 20. Consult pharmacy regarding effects of med's affecting mobility, cognition, and alternatives 21. Obtain physician order for PT if risk factors associated with mobility are present 22. Obtain physician order for OT as appropriate 23. Utilize diversional activities 24. Educate patient and patient artists' booking representative how to maintain a safe environment during visitation times (notify nurse prior to leaving bedside) 25. Consider appropriateness of medical or non-medical chemist 26. Set up voiding schedule as appropriate (every 2 hours) Outcome: Adequate for Discharge [facility] [employer] [facility] 07-22-2024 Miscellaneous Notes Problem: Safety Goal: [...] at the bedside 7. Instruct patient/ patient artists' booking representative about use of safety devices 8. Include patient/ patient artists' booking representative in decisions related to safety Outcome: Adequate for Discharge Problem: Knowledge Deficit Goal: Patient/patient artists' booking representative demonstrates understanding of disease process, treatment [...] =/> 25 or indicated by [facility] Assessment Goal: Patient should be free from fall Description: Interventions: 1. [place] to environment 2. Hourly rounds addressing the [...] non-skid footwear 11. Teach patient and patient artists' booking representative to maintain environment for safety and [...] (cane, walker) within reach 19. Request patient artists' booking representative bring adaptive equipment/mobility aids from home or obtain and provide as needed 20. Consult pharmacy regarding effects of med's affecting mobility, cognition, and alternatives 21. Obtain physician order for PT if risk factors associated with mobility are present 22. Obtain physician order for OT as appropriate 23. Utilize diversional activities 24. Educate patient and patient artists' booking representative how to maintain a safe environment during visitation times (notify nurse prior to leaving bedside) 25. Consider appropriateness of medical or non-medical chemist 26. Set up voiding schedule as appropriate [...] at the bedside 7. Instruct patient/ patient artists' booking representative about use of safety devices 8. Include patient/ patient artists' booking representative in decisions related to safety Outcome: Progressing Note: Evaluation of progress towards goal: pt remains free from injury. Family at bedside. Problem: Knowledge Deficit Goal: Patient/patient artists' booking representative demonstrates understanding of disease process, treatment [...] =/> 25 or indicated by [facility] Assessment Goal: Patient should be free from fall Description: Interventions: 1. [place] to environment 2. Hourly rounds addressing the [...] non-skid footwear 11. Teach patient and patient artists' booking representative to maintain environment for safety and [...] (cane, walker) within reach 19. Request patient artists' booking representative bring adaptive equipment/mobility aids from home or obtain and provide as needed 20. Consult pharmacy regarding effects of med's affecting mobility, cognition, and alternatives 21. Obtain physician order for PT if risk factors associated with mobility are present 22. Obtain physician order for OT as appropriate 23. Utilize diversional activities 24. Educate patient and patient artists' booking representative how to maintain a safe environment during visitation times (notify nurse prior to leaving bedside) 25. Consider appropriateness of medical or non-medical chemist 26. Set up voiding schedule as appropriate (every 2 hours) Outcome: Progressing Note: Evaluation of progress towards goal: pt remains free from falls. Fall precautions in place and family at bedside Problem: Moderate - High Risk Fall Score Description: Gallegos Fall Score of =/> 25 or indicated by [facility] Assessment Goal: Patient should be free from fall Description: Interventions: 1. [place] to environment 2. Hourly rounds addressing the [...] non-skid footwear 11. Teach patient and patient artists' booking representative to maintain environment for safety and [...] (cane, walker) within reach 19. Request patient artists' booking representative bring adaptive equipment/mobility aids from home or obtain and provide as needed 20. Consult pharmacy regarding effects of med's affecting mobility, cognition, and alternatives 21. Obtain physician order for PT if risk factors associated with mobility are present 22. Obtain physician order for OT as appropriate 23. Utilize diversional activities 24. Educate patient and patient artists' booking representative how to maintain a safe environment during visitation times (notify nurse prior to leaving bedside) 25. Consider appropriateness of medical or non-medical chemist 26. Set up voiding schedule as appropriate (every 2 hours) Outcome: Progressing Note: Evaluation of progress towards goal: pt remains free from falls. Fall precautions in place and family at bedside DISCHARGE PLANNING NOTE [employer] Supervisor spoke with RN KAY Graf and with charger tester Mylena about current situation regarding appeal decision and DC plan to home with outpatient services. [employer] Supervisor placed a call to the who was in the patient's room due to the questions she had re: the discharge plan. [employer] Supervisor spoke with , Kari on 07/21/24 at 1325. [employer] Supervisor reviewed Eduardo's DC Appeal Determination Notification with the who confirmed that she had received a voicemail from [facility] this morning. [employer] Supervisor explained that Eduardo had agreed with the termination of hospital services after having reviewed the uploaded clinical documents from this hospitalization that story writer had sent to them yesterday. expressed verbal understanding to of Eduardo's decision. [employer] Supervisor explained that patient's financial liability would begin at Noon on 07/22/24 and offered our care navigation assistance with obtaining transportation to home. had questions about why referrals were not made to detention facilities that family had now chosen, [facility] ([place]) and [facility]). [employer] Supervisor explained to the that the patient did not meet the clinical criteria this time for a detention/rehab facility level of care and reminded her that a discussion about this took place this past week/yesterday with the treatment team. explained that she never agreed to take her home and her and her family now want SNF placement. [employer] Supervisor continued to explain to the process of [...] prior to bringing him to the hospital. [employer] Supervisor offered supportive listening to the and also offered for her to connect with patient's PCP, Dr. Lopez after she gets her home for resources. Mold Yard Supervisor also discussed the outpatient TBI clinic appointment that was being discussed yesterday and that information would be included on patient's after visit summary. Mold Yard Supervisor explained that if was not going to make arrangements to take patient home by irma on 07/22, that patient's financial responsibility of $2640.00 per day would begin. expressed verbal understanding to story writer. Mold Yard Supervisor emailed financial responsibility form with instruction to charger testerCm (and cce'd today's RN Lesia Felton for awareness) for bedside delivery today. is aware of pending paper copy delivery of this form. - NELLI GLEZ [facility] 07/21/24 2:11 PM DISCHARGE PLANNING NOTE We have received DC Appeal Determination Notification from BILL/Eduardo and Daryl has agreed with the termination of services. Beneficiary liability begins 07.22.2024 by Irma. Beneficiary and/or beneficiary artists' booking representative were to be notified of determination via phone call. [facility]'d at 1032 and letter rec'd [phone] were received by story writer via fax. Mold Yard Supervisor uploaded documents to document list. Documentation updated. Mold Yard Supervisor received forwarded voice mail 07/21/24 at 1032 from Eduardo Duran's Immediate Advocacy Department , who had left message on Care Navigation Department voice mail at 1617 on 07/20/24, stating he was representing patient's family who had called [facility] asking 1) why denial reason wasn't given re: transfer to another care facility and 2) if the preferred facility by family was able to accept. Reference Case # given from Roger [id number]. Mold Yard Supervisor attempted to call Roger back on 07/21/24 at 1214 and story writer rec'd auto message from [facility] which stated only live phone calls with [facility] are Tuesday thru Tuesday. Mold Yard Supervisor left voicemail citing reference case # [id number]. Mold Yard Supervisor stated reason for return phone call and requested call back from Roger. - NELLI GLEZ [facility] 07/21/24 12:37 PM Problem: Safety [...] at the bedside 7. Instruct patient/ patient artists' booking representative about use of safety devices 8. Include patient/ patient artists' booking representative in decisions related to safety Outcome: Progressing Note: Evaluation of progress towards goal: Pain will be adequately controlled to allow for rest and adl's Problem: Knowledge Deficit Goal: Patient/patient artists' booking representative demonstrates understanding of disease process, treatment [...] Moderate - High Risk Fall Score Description: [place] Fall Score of =/> 25 or indicated by [facility] Assessment Goal: Patient should be free from fall Description: Interventions: 1. [place] to environment 2. Hourly rounds addressing the [...] non-skid footwear 11. Teach patient and patient artists' booking representative to maintain environment for safety and [...] (cane, walker) within reach 19. Request patient artists' booking representative bring adaptive equipment/mobility aids from home or obtain and provide as needed 20. Consult pharmacy regarding effects of med's affecting mobility, cognition, and alternatives 21. Obtain physician order for PT if risk factors associated with mobility are present 22. Obtain physician order for OT as appropriate 23. Utilize diversional activities 24. Educate patient and patient artists' booking representative how to maintain a safe environment during visitation times (notify nurse prior to leaving bedside) 25. Consider appropriateness of medical or non-medical chemist 26. Set up voiding schedule as appropriate [...] at the bedside 7. Instruct patient/ patient artists' booking representative about use of safety devices 8. Include patient/ patient artists' booking representative in decisions related to safety Outcome: Progressing Note: Evaluation of progress towards goal: pt remains free from injury Problem: Knowledge Deficit Goal: Patient/patient artists' booking representative demonstrates understanding of disease process, treatment [...] =/> 25 or indicated by [facility] Assessment Goal: Patient should be free from fall Description: Interventions: 1. Rey[place] to environment 2. Hourly rounds addressing the [...] non-skid footwear 11. Teach patient and patient artists' booking representative to maintain environment for safety and [...] (cane, walker) within reach 19. Request patient artists' booking representative bring adaptive equipment/mobility aids from home or obtain and provide as needed 20. Consult pharmacy regarding effects of med's affecting mobility, cognition, and alternatives 21. Obtain physician order for PT if risk factors associated with mobility are present 22. Obtain physician order for OT as appropriate 23. Utilize diversional activities 24. Educate patient and patient artists' booking representative how to maintain a safe environment during visitation times (notify nurse prior to leaving bedside) 25. Consider appropriateness of medical or non-medical chemist 26. Set up voiding schedule as appropriate (every 2 hours) Outcome: Progressing Note: Evaluation of progress towards goal: fall precautions in place and pt remains free from falls DISCHARGE PLANNING NOTE Patient's family has appealed his discharge & we have received notification from [facility] that a DC appeal has been called in. The chart, DND form, & IMM have been successfully uploaded by story writer to the O/[facility] and successfully received by [facility]. [facility] will notify the of the patient of the appeal determination. Mold Yard Supervisor phone called patient's & read the DND notice to her. Paper copy of the DND notice to be delivered to the patient's bedside. Mold Yard Supervisor informed to anticipate phone call from [facility] re: determination of DC Appeal & encouraged wifeto answer the phone when [facility] calls. expressed verbal understanding of DND and the DC appeal process. - NELLI GLEZ [facility] 07/20/24 5:13 PM Problem: Safety [...] at the bedside 7. Instruct patient/ patient artists' booking representative about use of safety devices 8. Include patient/ patient artists' booking representative in decisions related to safety Outcome: Progressing Note: Evaluation of progress towards goal: Patient remains injury free at this time. Problem: Knowledge Deficit Goal: Patient/patient artists' booking representative demonstrates understanding of disease process, treatment [...] =/> 25 or indicated by [facility] Assessment Goal: Patient should be free from fall Description: Interventions: 1. Reydon to environment 2. Hourly rounds addressing the [...] non-skid footwear 11. Teach patient and patient artists' booking representative to maintain environment for safety and [...] (cane, walker) within reach 19. Request patient artists' booking representative bring adaptive equipment/mobility aids from home or obtain and provide as needed 20. Consult pharmacy regarding effects of med's affecting mobility, cognition, and alternatives 21. Obtain physician order for PT if risk factors associated with mobility are present 22. Obtain physician order for OT as appropriate 23. Utilize diversional activities 24. Educate patient and patient artists' booking representative how to maintain a safe environment during visitation times (notify nurse prior to leaving bedside) 25. Consider appropriateness of medical or non-medical chemist 26. Set up voiding schedule as appropriate (every 2 hours) Outcome: Progressing Note: Evaluation of progress towards goal: Patient remains free from falls at this time. DISCHARGE PLANNING NOTE 07/30 at 12:40 Hospital follow up with Fidelina Fisher CNP [facility] TBI [address] [place] [address] Confirmed with Taylor at [facility] she did receive the updated notes (neuro, PMR, PT/OT) that were faxed and uploaded to [facility]. She is almost finishing writing it up for physician review and will call us with their determination by 10am. 9:31 am Received call from Taylor at [facility] IPR-she reviewed updated notes with medical office worker and they remain unable to accept after our 3rd request for review. She said he is doing too well functionally, does not need OT/PT services. She said after discussion with medical office worker their facility would be of no benefit to the patient. This information was communicated to interdisciplinary team via epic chat DISCHARGE PLANNING NOTE Sent face sheet to [facility] for hospital transfer via secure fax to # [phone] DISCHARGE PLANNING NOTE Discharge plan- awaiting responses from [facility] if they can accept. Tasked [facility] to send neuro note from yesterday to them again. Tasked CN to fax his face sheet to [facility] per physician request since she is calling them about a hospital to hospital transfer per families request. Leadership team aware. - NANCY PARRISH 07/20/24 8:19 AM Discussed patient and d/c planning with leadership team. Everyone in agreement with d/c today since per physician [facility] can not accept as a hospital transfer and [facility] has denied as well. Physician and this story writer spoke with patient, and sister that is present re: d/c today and that patient will be going home with outpatient ST and an appointment has been made for a TBI clinic for follow up. Provided IMM to and explained. Leadership aware. - NANCY PARRISH 07/20/24 11:29 AM DISCHARGE PLANNING NOTE Neuro Note sent to [facility] (P# [phone] ; F# [phone]) [facility] and via [facility]. Problem: Safety Goal: Patient will be injury free during hospitalization Description: INTERVENTIONS: 1. Assess patient's risk for falls and implement fall prevention plan of care per policy 2. Provide and maintain a safe environment 3. Proper use of double Identifiers 4. Medication administration using the 5 rights 5. Hand hygiene 6. Specimens are labeled at the bedside 7. Instruct patient/ patient artists' booking representative about use of safety devices 8. Include patient/ patient artists' booking representative in decisions related to safety Outcome: Progressing Note: Evaluation of progress towards goal: Pt remains free from injury and significant other at bedside Problem: Knowledge Deficit Goal: Patient/patient artists' booking representative demonstrates understanding of disease process, treatment [...] =/> 25 or indicated by [facility] Assessment Goal: Patient should be free from fall Description: Interventions: 1. [place] to environment 2. Hourly rounds addressing the [...] non-skid footwear 11. Teach patient and patient artists' booking representative to maintain environment for safety and [...] (cane, walker) within reach 19. Request patient artists' booking representative bring adaptive equipment/mobility aids from home or obtain and provide as needed 20. Consult pharmacy regarding effects of med's affecting mobility, cognition, and alternatives 21. Obtain physician order for PT if risk factors associated with mobility are present 22. Obtain physician order for OT as appropriate 23. Utilize diversional activities 24. Educate patient and patient artists' booking representative how to maintain a safe environment during visitation times (notify nurse prior to leaving bedside) 25. Consider appropriateness of medical or non-medical chemist 26. Set up voiding schedule as appropriate (every 2 hours) Outcome: Progressing Note: Evaluation of progress towards goal: pt remains free from falls and fall precautions are in place DISCHARGE PLANNING NOTE Updates to [facility] (P# [phone] ; F# [phone]) Occupational Therapy Treatment Discharge Recommendations OT Recommendations [...] therapy per MARCI Rothman Equipment: gait belt Telemetry/Cleaning Professional: No Oxygen Used: room air Other: fall [...] up w/mother's name; educated sister on playing Algramo songs from pt's younger years, to encourage [...] Date/Time User Outcome 07/19/24 1445 Yoanna Guille-Mahoney, CASTING PLUG ASSEMBLER/L Progressing 07/17/24 1439 Yoanna Guille-Mahoney, KWADWO/L Progressing [...] Guille-Mahoney, KWADWO/L Progressing 07/17/24 1439 Yoanna Guille-Mahoney, CASTING PLUG ASSEMBLER/L Progressing Problem: Dressing LB Dates: Start: 07/13/24 [...] Date/Time User Outcome 07/17/24 1439 Yoanna Han-Mahoney, CASTING PLUG ASSEMBLER/L Progressing Problem: Standing Balance Dates: Start: 07/13/24 Disciplines: OT Goal: Improve balance to normal Dates: Start: 07/13/24 Expected End: 08/13/24 Description: Normal dynamic balance. Disciplines: OT Outcomes Date/Time User Outcome 07/19/24 1445 Yoanna Han-Mahoney, CASTING PLUG ASSEMBLER/L Progressing 07/17/24 1439 Yoanna Han-Mahoney, CASTING PLUG ASSEMBLER/L Progressing Problem: Toilet Transfers Dates: Start: 07/13/24 [...] Hogan/Jerome Progressing 07/17/24 1439 KWADWO Hogan/Jerome Progressing Occupational Therapy Care Plan (Resolved) There are no resolved problems. Principal Problem: Dementia with behavioral disturbance ([facility]) Active Problems: Altered mental status Status post colostomy, follow-up exam ([facility]) Cosigned by MAYNOR Dillon/Jerome at 07/19/2024 3:13 [...] 6 Clicks: Basic Mobility Raw Score: 20 [facility] G Code Modifier: CJ Patient Response to Treatment: Slow progress, decreased activity tolerance Assessment Patient Assessment Patient Response to Treatment: Slow progress, decreased activity tolerance Visit RN Communication: Yes Medical Record Reviewed: Yes PT Type of Visit: Treatment Precautions Activity: ok for therapy per MARCI Rothman Equipment: gait belt Telemetry/Cleaning Professional: Yes Oxygen Used: room air Other: fall [...] Goal: Patient will perform stairs/curb with Modified [place] Dates: Start: 07/13/24 Expected End: 07/27/24 Description: [...] problems. Principal Problem: Dementia with behavioral disturbance ([facility]) Active Problems: Altered mental status Status post colostomy, follow-up exam ([facility]) Cosigned by Jose Gorman PT [...] at the bedside 7. Instruct patient/ patient artists' booking representative about use of safety devices 8. Include patient/ patient artists' booking representative in decisions related to safety Outcome: Progressing Note: Evaluation of progress towards goal: Patient remains injury free at this time. Problem: Knowledge Deficit Goal: Patient/patient artists' booking representative demonstrates understanding of disease process, treatment [...] =/> 25 or indicated by [facility] Assessment Goal: Patient should be free from fall Description: Interventions: 1. Rey[place] to environment 2. Hourly rounds addressing the [...] non-skid footwear 11. Teach patient and patient artists' booking representative to maintain environment for safety and [...] (cane, walker) within reach 19. Request patient artists' booking representative bring adaptive equipment/mobility aids from home or obtain and provide as needed 20. Consult pharmacy regarding effects of med's affecting mobility, cognition, and alternatives 21. Obtain physician order for PT if risk factors associated with mobility are present 22. Obtain physician order for OT as appropriate 23. Utilize diversional activities 24. Educate patient and patient artists' booking representative how to maintain a safe environment during visitation times (notify nurse prior to leaving bedside) 25. Consider appropriateness of medical or non-medical chemist 26. Set up voiding schedule as appropriate (every 2 hours) Outcome: Progressing Note: Evaluation of progress towards goal: Patient remains free from falls. DISCHARGE PLANNING NOTE Updates to [facility] (P# ; F# ) Images from the original note were not included. DISCHARGE PLANNING NOTE Discussed patient today during rounds. Plan-TBI center VS IPR. This story writer and floor Mgr spoke with patient's over the phone and his sister in his room re: d/c planning. Updated them that [facility] has denied. [facility] [...] - NANCY PARRISH 07/19/24 10:42 AM This story writer and metal flooring installer and Dr. Shipley spoke with patient, and sister re: d/c planning. They are aware that [facility] is still reviewing referral. Asked if SNF referrals can be sent and they declined stating they would like the physician to see if she can get him transferred to [facility] as a physician to physician transfer. Updated Leadership. If neither of these hospitals can accept then patient to d/c home with since SNF has been declined. - NANCY PARRISH 07/19/24 12:14 PM This story writer and floor mgr spoke with family to let them know [facility] has denied patient and that they recommend SNF for him. Tasked CN to send neuro note from today to [facility] to see if they can [...] at the bedside 7. Instruct patient/ patient artists' booking representative about use of safety devices 8. Include patient/ patient artists' booking representative in decisions related to safety Outcome: Progressing Note: Evaluation of progress towards goal: Problem: Knowledge Deficit Goal: Patient/patient artists' booking representative demonstrates understanding of disease process, treatment [...] at the bedside 7. Instruct patient/ patient artists' booking representative about use of safety devices 8. Include patient/ patient artists' booking representative in decisions related to safety Outcome: Progressing Note: Evaluation of progress towards goal: Problem: Knowledge Deficit Goal: Patient/patient artists' booking representative demonstrates understanding of disease process, treatment [...] at the bedside 7. Instruct patient/ patient artists' booking representative about use of safety devices 8. Include patient/ patient artists' booking representative in decisions related to safety Outcome: Progressing Note: Evaluation of progress towards goal: patient is injury free at this time. Problem: Knowledge Deficit Goal: Patient/patient artists' booking representative demonstrates understanding of disease process, treatment [...] =/> 25 or indicated by [facility] Assessment Goal: Patient should be free from fall Description: Interventions: 1. [place] to environment 2. Hourly rounds addressing the [...] non-skid footwear 11. Teach patient and patient artists' booking representative to maintain environment for safety and [...] (cane, walker) within reach 19. Request patient artists' booking representative bring adaptive equipment/mobility aids from home or obtain and provide as needed 20. Consult pharmacy regarding effects of med's affecting mobility, cognition, and alternatives 21. Obtain physician order for PT if risk factors associated with mobility are present 22. Obtain physician order for OT as appropriate 23. Utilize diversional activities 24. Educate patient and patient artists' booking representative how to maintain a safe environment during visitation times (notify nurse prior to leaving bedside) 25. Consider appropriateness of medical or non-medical chemist 26. Set up voiding schedule as appropriate (every 2 hours) Outcome: Progressing Note: Evaluation of progress towards goal: Patient is free from falls at this time. DISCHARGE PLANNING NOTE Referral sent to [facility] (P# [phone] ; F# [phone]) Images from the original note were not included. DISCHARGE PLANNING NOTE Discussed patient today during rounds. Patient's requested updates be sent to [facility]. Tasked [facility] to send. Leadership team aware as well as floor nurse. Barriers- acceptance, auth. Services Requested: Services Requested Patient expects to be discharged to:: home vs snf Patient Goals: Goals: Goals <enter goal here> (pt-stated) Evaluation of progress towards goal: TBD-pending PT/OT eval - NANCY PARRISH 07/18/24 10:30 AM Still awaiting response from [facility] if they can accept patient. [...] at the bedside 7. Instruct patient/ patient artists' booking representative about use of safety devices 8. Include patient/ patient artists' booking representative in decisions related to safety Outcome: [...] be free from fall Description: Interventions: 1. [place] to environment 2. Hourly rounds addressing the [...] non-skid footwear 11. Teach patient and patient artists' booking representative to maintain environment for safety and [...] (cane, walker) within reach 19. Request patient artists' booking representative bring adaptive equipment/mobility aids from home or obtain and provide as needed 20. Consult pharmacy regarding effects of med's affecting mobility, cognition, and alternatives 21. Obtain physician order for PT if risk factors associated with mobility are present 22. Obtain physician order for OT as appropriate 23. Utilize diversional activities 24. Educate patient and patient artists' booking representative how to maintain a safe environment during visitation times (notify nurse prior to leaving bedside) 25. Consider appropriateness of medical or non-medical chemist 26. Set up voiding schedule as appropriate (every 2 hours) Outcome: Progressing Note: Evaluation of progress towards goal: Patient will remain free from falls. DISCHARGE PLANNING NOTE Referral sent to. [facility] (P# [phone] ; F# [phone], ) Physical Therapy Treatment Discharge Recommendations PT [...] Rothman Equipment: gait belt and chair alarm Telemetry/Cleaning Professional: Yes Oxygen Used: room air Other: fall [...] Goal: Patient will perform stairs/curb with Modified [place] Dates: Start: 07/13/24 Expected End: 07/27/24 Description: [...] problems. Principal Problem: Dementia with behavioral disturbance ([facility]) Active Problems: Altered mental status Status post colostomy, follow-up exam ([facility]) Cosigned by Janice Nuno PT at 07/18/2024 [...] up) Scoring Daily Activity Raw Score: 19 [facility] G Code Modifier: CK Therapy Plan [...] Rothman Equipment: gait belt and chair alarm Telemetry/Cleaning Professional: Yes Oxygen Used: room air Other: fall [...] Date/Time User Outcome 07/17/24 1439 Yoanna Han-Mahoney, CASTING PLUG ASSEMBLER/L Progressing Problem: Grooming Dates: Start: 07/13/24 Disciplines: OT Goal: Patient will perform grooming Independently Dates: Start: 07/13/24 Expected End: 08/13/24 Description: Goal Description: Disciplines: OT Outcomes Date/Time User Outcome 07/17/24 1439 Yoanna Han-Mahoney, CASTING PLUG ASSEMBLER/L Progressing Problem: Standing Balance Dates: Start: 07/13/24 Disciplines: OT Goal: Improve balance to normal Dates: Start: 07/13/24 Expected End: 08/13/24 Description: Normal dynamic balance. Disciplines: OT Outcomes Date/Time User Outcome 07/17/24 1439 Yoanna Han-Mahoney, CASTING PLUG ASSEMBLER/L Progressing Problem: Toilet Transfers Dates: Start: 07/13/24 [...] mental status Status post colostomy, follow-up exam ([facility]) Cosigned by MAYNOR Navarro/L at 07/17/2024 3:03 PM EST Associated attestation [...] at the bedside 7. Instruct patient/ patient artists' booking representative about use of safety devices 8. Include patient/ patient artists' booking representative in decisions related to safety Outcome: Progressing Note: Evaluation of progress towards goal: Patient is injury free at this time. Problem: Knowledge Deficit Goal: Patient/patient artists' booking representative demonstrates understanding of disease process, treatment [...] =/> 25 or indicated by [facility] Assessment Goal: Patient should be free from fall Description: Interventions: 1. Reydon to environment 2. Hourly rounds addressing the [...] non-skid footwear 11. Teach patient and patient artists' booking representative to maintain environment for safety and [...] (cane, walker) within reach 19. Request patient artists' booking representative bring adaptive equipment/mobility aids from home or obtain and provide as needed 20. Consult pharmacy regarding effects of med's affecting mobility, cognition, and alternatives 21. Obtain physician order for PT if risk factors associated with mobility are present 22. Obtain physician order for OT as appropriate 23. Utilize diversional activities 24. Educate patient and patient artists' booking representative how to maintain a safe environment during visitation times (notify nurse prior to leaving bedside) 25. Consider appropriateness of medical or non-medical chemist 26. Set up voiding schedule as appropriate (every 2 hours) Outcome: Progressing Note: Evaluation of progress towards goal: Patient is free from falls at this time. DISCHARGE PLANNING NOTE fax referral to [facility] to [phone] shannan Alyssa Images from the original note were not included. DISCHARGE PLANNING NOTE Discussed patient today during rounds. Plan- IPR/TBI center. Barriers- acceptance, auth. This story writer called both reviewing facilities and left for admissions to see if they can accept. Asked them to call this story writer back. Floor nurse and leadership team aware. Services Requested: Services Requested Patient expects to be discharged to:: home vs snf Patient Goals: Goals: Goals <enter goal here> (pt-stated) Evaluation of progress towards goal: TBD-pending PT/OT lynnette - NANCY PARRISH 07/17/24 9:42 AM At this time we do not have an accepting TBI/IPR facility. This story writer and metal flooring installer attempted to speak with patient's but she is not in the room. Also tried to call her but it went right to VM and her VM box is full. - NANCY PARRISH 07/17/24 1:43 PM [facility] called this story writer since they don't respond in careport and they can not accept patient. This story writer and metal flooring installer spoke with patient's and patient's [...] at the bedside 7. Instruct patient/ patient artists' booking representative about use of safety devices 8. Include patient/ patient artists' booking representative in decisions related to safety Outcome: Progressing Note: Evaluation of progress towards goal: Patient remains injury and fall free. Safety precautions in place: call light within reach, bed in lowest position, personal belongings within reach, oriented to environment, and non-slip footwear on. Problem: Knowledge Deficit Goal: Patient/patient artists' booking representative demonstrates understanding of disease process, treatment [...] be free from fall Description: Interventions: 1. Reydon to environment 2. Hourly rounds addressing the [...] non-skid footwear 11. Teach patient and patient artists' booking representative to maintain environment for safety and [...] (cane, walker) within reach 19. Request patient artists' booking representative bring adaptive equipment/mobility aids from home or obtain and provide as needed 20. Consult pharmacy regarding effects of med's affecting mobility, cognition, and alternatives 21. Obtain physician order for PT if risk factors associated with mobility are present 22. Obtain physician order for OT as appropriate 23. Utilize diversional activities 24. Educate patient and patient artists' booking representative how to maintain a safe environment during visitation times (notify nurse prior to leaving bedside) 25. Consider appropriateness of medical or non-medical chemist 26. Set up voiding schedule as appropriate [...] Plan Speech Therapy Care Plan (Active) Template: [facility] Speech Problem: Auditory Comprehension Dates: Start: 07/12/24 Disciplines: METALLURGY TEACHER Goal: LTG: Patient will comprehend communication related to basic medical and social needs and utilize compensatory strategies to maintain safety in a functional living environment Dates: Start: 07/12/24 Expected End: 08/12/24 Disciplines: METALLURGY TEACHER Goal: STG: Patient will answer complex yes/no questions with 90% accuracy with minimal cueing Dates: Start: 07/12/24 Expected End: 08/12/24 Disciplines: METALLURGY TEACHER Outcomes Date/Time User Outcome 07/16/24 1520 MAGALI Castellanos Progressing Goal: STG: Patient will complete 1-3 step commands with 90% accuracy with minimal cueing Dates: Start: 07/12/24 Expected End: 08/12/24 Disciplines: METALLURGY TEACHER Outcomes Date/Time User Outcome 07/16/24 1520 MAGALI Castellanos Progressing Goal: STG: Patient will complete simple, phrase level auditory comprehension tasks with 90% accuracy with minimal cueing Dates: Start: 07/12/24 Expected End: 08/12/24 Disciplines: METALLURGY TEACHER Problem: Cognitive Linguistic Dates: Start: 07/12/24 Disciplines: METALLURGY TEACHER Goal: LTG: Patient will display functional cognitive-linguistic skills to demonstrate appropriate communication and safety within daily activities in a functional living environment Dates: Start: 07/12/24 Expected End: 08/12/24 Disciplines: METALLURGY TEACHER Goal: STG: Patient will demonstrate sustained attention by maintaining focus during a task for 10 minutes with minimal assistance Dates: Start: 07/12/24 Expected End: 08/12/24 Disciplines: METALLURGY TEACHER Outcomes Date/Time User Outcome 07/16/24 1520 Conchita Devi, [facility]-METALLURGY TEACHER Progressing Goal: STG: Patient will be appropriately oriented to person, place, time and situation with 90% accuracy with minimal cueing Dates: Start: 07/12/24 Expected End: 08/12/24 Disciplines: METALLURGY TEACHER Goal: STG: Patient will recall information discussed during therapy session via retelling/answering questions with 90% accuracy with minimal cueing Dates: Start: 07/12/24 Expected End: 08/12/24 Disciplines: METALLURGY TEACHER Problem: High Level Language Dates: Start: 07/12/24 Disciplines: METALLURGY TEACHER Goal: LTG: Patient will demonstrate use of self-awareness, goal setting, planning, initiation, self-monitoring and problem solving during daily activities to improve safety and awareness in a functional living environment Dates: Start: 07/12/24 Expected End: 08/12/24 Disciplines: METALLURGY TEACHER Goal: STG: Patient will sequence 4-6 steps to a task (verbal, written, pictures) with 90% accuracy with minimal cueing Dates: Start: 07/12/24 Expected End: 08/12/24 Disciplines: METALLURGY TEACHER Goal: STG: Patient will provide 3 appropriate solutions to problems of daily living with 90% accuracy with minimal cueing Dates: Start: 07/12/24 Expected End: 08/12/24 Disciplines: METALLURGY TEACHER Goal: STG: Patient will demonstrate functional problem solving and safety awareness with 90% accuracy in daily living tasks in order to increase safe interactions with environment and decrease assistance from caregivers Dates: Start: 07/12/24 Expected End: 08/12/24 Disciplines: METALLURGY TEACHER Problem: Verbal Expression Dates: Start: 07/12/24 Disciplines: METALLURGY TEACHER Goal: LTG: Patient will utilize compensatory strategies to communicate wants and needs effectively to different conversational partners, maintain safety and participate socially in a functional living environment Dates: Start: 07/12/24 Expected End: 08/12/24 Disciplines: METALLURGY TEACHER Goal: STG: Patient will respond to simple/complex open ended questions during activities of daily living with 90% accuracy with minimal cueing Dates: Start: 07/12/24 Expected End: 08/12/24 Disciplines: METALLURGY TEACHER Goal: STG: Patient will maintain topic of conversation to decrease tangential speech with 90% accuracy with minimal cueing Dates: Start: 07/12/24 Expected End: 08/12/24 Disciplines: METALLURGY TEACHER Outcomes Date/Time User Outcome 07/16/24 1520 RADHA aCstellanosMETALLURGY TEACHER Progressing Speech Therapy Care Plan (Resolved) There are no resolved problems. Principal Problem: Dementia with behavioral disturbance ([facility]) Active Problems: Altered mental status Status post colostomy, follow-up exam ([facility]) DISCHARGE PLANNING NOTE Resent referral in [facility] to [facility] P#[phone]; F#[phone] sent via secure fax to [phone] Problem: Safety Goal: Patient will be injury free during hospitalization Description: INTERVENTIONS: 1. Assess patient's risk for falls and implement fall prevention plan of care per policy 2. Provide and maintain a safe environment 3. Proper use of double Identifiers 4. Medication administration using the 5 rights 5. Hand hygiene 6. Specimens are labeled at the bedside 7. Instruct patient/ patient artists' booking representative about use of safety devices 8. Include patient/ patient artists' booking representative in decisions related to safety Outcome: Progressing Note: Evaluation of progress towards goal: pain will be adequally controlled to allow for rest and adl's Problem: Knowledge Deficit Goal: Patient/patient artists' booking representative demonstrates understanding of disease process, treatment [...] be free from fall Description: Interventions: 1. Reydon to environment 2. Hourly rounds addressing the [...] non-skid footwear 11. Teach patient and patient artists' booking representative to maintain environment for safety and [...] (cane, walker) within reach 19. Request patient artists' booking representative bring adaptive equipment/mobility aids from home or obtain and provide as needed 20. Consult pharmacy regarding effects of med's affecting mobility, cognition, and alternatives 21. Obtain physician order for PT if risk factors associated with mobility are present 22. Obtain physician order for OT as appropriate 23. Utilize diversional activities 24. Educate patient and patient artists' booking representative how to maintain a safe environment during visitation times (notify nurse prior to leaving bedside) 25. Consider appropriateness of medical or non-medical chemist 26. Set up voiding schedule as appropriate (every 2 hours) Outcome: Progressing Note: Evaluation of progress towards goal: fall bundle DISCHARGE PLANNING NOTE Clinical updates sent to Referrals sent to [facility] (P# [phone] ; F# [phone]) and to [facility] and to [facility] DISCHARGE PLANNING NOTE [facility] Via secure fax to [phone]. This is theor fax per phone call to facility. P#[phone]. Provider not in Careport. DISCHARGE PLANNING NOTE Discharge plan- TBD waiting to hear from TBI/IPR who can accept out of the reviewing facilities. [facility] in [facility] called this story writer and will call his to discuss. If they are able to accept she would owe private pay for room and board and money is due up front. Updated leadership team and floor nurse. - NANCY PARRISH 07/16/24 8:50 AM Discussed patient today during rounds. Called [facility] and left a VM for admissions to see if they can accept. Awaiting responses from the other facilities to respond. Barriers- acceptance, auth. - NANCY PARRISH 07/16/24 10:58 AM Called admissions at [facility] and [facility] and left VM asking them if they can accept and to call this story writer back. Left callback #. - NANCY PARRISH 07/16/24 11:05 AM Still awaiting responses from all reviewing IPR this time. Leadership aware. Called [facility] and spoke with admissions and they will review. Also called [facility] and left another VM. Both in [place] are still reviewing at this time. - [...] at the bedside 7. Instruct patient/ patient artists' booking representative about use of safety devices 8. Include patient/ patient artists' booking representative in decisions related to safety Outcome: Progressing Note: Evaluation of progress towards goal: Patient remains injury and fall free. Safety precautions in place: call light within reach, bed in lowest position, personal belongings within reach, oriented to environment, and non-slip footwear on. Problem: Knowledge Deficit Goal: Patient/patient artists' booking representative demonstrates understanding of disease process, treatment [...] Collaborate with ancillary departments 14. Include patient/patient artists' booking representative in decisions related to anxiety Outcome: Progressing Note: Evaluation of progress towards goal: Patient's anxiety appears to be at manageable level. Problem: Moderate - High Risk Fall Score Description: Gallegos Fall Score of =/> 25 or indicated by [facility] Assessment Goal: Patient should be free from fall Description: Interventions: 1. Rey[place] to environment 2. Hourly rounds addressing the [...] non-skid footwear 11. Teach patient and patient artists' booking representative to maintain environment for safety and [...] (cane, walker) within reach 19. Request patient artists' booking representative bring adaptive equipment/mobility aids from home or obtain and provide as needed 20. Consult pharmacy regarding effects of med's affecting mobility, cognition, and alternatives 21. Obtain physician order for PT if risk factors associated with mobility are present 22. Obtain physician order for OT as appropriate 23. Utilize diversional activities 24. Educate patient and patient artists' booking representative how to maintain a safe environment during visitation times (notify nurse prior to leaving bedside) 25. Consider appropriateness of medical or non-medical chemist 26. Set up voiding schedule as appropriate [...] at the bedside 7. Instruct patient/ patient artists' booking representative about use of safety devices 8. Include patient/ patient artists' booking representative in decisions related to safety Outcome: [...] =/> 25 or indicated by [facility] Assessment Goal: Patient should be free from fall Description: Interventions: 1. Rey[place] to environment 2. Hourly rounds addressing the [...] non-skid footwear 11. Teach patient and patient artists' booking representative to maintain environment for safety and [...] (cane, walker) within reach 19. Request patient artists' booking representative bring adaptive equipment/mobility aids from home or obtain and provide as needed 20. Consult pharmacy regarding effects of med's affecting mobility, cognition, and alternatives 21. Obtain physician order for PT if risk factors associated with mobility are present 22. Obtain physician order for OT as appropriate 23. Utilize diversional activities 24. Educate patient and patient artists' booking representative how to maintain a safe environment during visitation times (notify nurse prior to leaving bedside) 25. Consider appropriateness of medical or non-medical chemist 26. Set up voiding schedule as appropriate [...] at the bedside 7. Instruct patient/ patient artists' booking representative about use of safety devices 8. Include patient/ patient artists' booking representative in decisions related to safety Outcome: Progressing Note: Evaluation of progress towards goal: Proper identifiers used with patient care and medication administration. Remains free of injury during shift Problem: Knowledge Deficit Goal: Patient/patient artists' booking representative demonstrates understanding of disease process, treatment [...] Collaborate with ancillary departments 14. Include patient/patient artists' booking representative in decisions related to anxiety Outcome: Progressing Note: Evaluation of progress towards goal: Patient verbalizes a tolerable anxiety level and remains free of signs and symptoms of anxiety. Will continue to explain treatment plan and monitor for changes in anxiety levels. Problem: Moderate - High Risk Fall Score Description: Gallegos Fall Score of =/> 25 or indicated by [facility] Assessment Goal: Patient should be free from fall Description: Interventions: 1. Rey[place] to environment 2. Hourly rounds addressing the [...] non-skid footwear 11. Teach patient and patient artists' booking representative to maintain environment for safety and [...] (cane, walker) within reach 19. Request patient artists' booking representative bring adaptive equipment/mobility aids from home or obtain and provide as needed 20. Consult pharmacy regarding effects of med's affecting mobility, cognition, and alternatives 21. Obtain physician order for PT if risk factors associated with mobility are present 22. Obtain physician order for OT as appropriate 23. Utilize diversional activities 24. Educate patient and patient artists' booking representative how to maintain a safe environment during visitation times (notify nurse prior to leaving bedside) 25. Consider appropriateness of medical or non-medical chemist 26. Set up voiding schedule as appropriate [...] at the bedside 7. Instruct patient/ patient artists' booking representative about use of safety devices 8. Include patient/ patient artists' booking representative in decisions related to safety Outcome: Progressing Note: Evaluation of progress towards goal: pain will be controlled to allow for rest and adl's Problem: Knowledge Deficit Goal: Patient/patient artists' booking representative demonstrates understanding of disease process, treatment [...] Collaborate with ancillary departments 14. Include patient/patient artists' booking representative in decisions related to anxiety Outcome: Progressing Note: Evaluation of progress towards goal: listen and reassuring Problem: Moderate - High Risk Fall Score Description: Gallegos Fall Score of =/> 25 or indicated by [facility] Assessment Goal: Patient should be free from fall Description: Interventions: 1. Reydon to environment 2. Hourly rounds addressing the [...] non-skid footwear 11. Teach patient and patient artists' booking representative to maintain environment for safety and [...] (cane, walker) within reach 19. Request patient artists' booking representative bring adaptive equipment/mobility aids from home or obtain and provide as needed 20. Consult pharmacy regarding effects of med's affecting mobility, cognition, and alternatives 21. Obtain physician order for PT if risk factors associated with mobility are present 22. Obtain physician order for OT as appropriate 23. Utilize diversional activities 24. Educate patient and patient artists' booking representative how to maintain a safe environment during visitation times (notify nurse prior to leaving bedside) 25. Consider appropriateness of medical or non-medical chemist 26. Set up voiding schedule as appropriate (every 2 hours) Outcome: Progressing Note: Evaluation of progress towards goal: fallbundle DISCHARGE PLANNING NOTE Referrals sent to [facility] (P# [phone] ; F# [phone]) and to [facility] and to [facility] and to [facility] in [facility] p#: [phone] f#: [phone] DISCHARGE PLANNING NOTE Follow-up Discharge Planning Progress Note Per RN during discharge transition rounds, barriers to discharge are: Accepting acute inpatient rehabilitation center. Discharge Plan: [employer] followed up with patient, spouse and patient sister at bedside. Updated, [facility], not accepting, not in network with patient [...] Discussed lower levels of care such as Nursing Home Facility and Home care. Patient spouse and sister verbalized understanding. Choices received. [facility] tasked to send referrals. Attempted to [...] at the bedside 7. Instruct patient/ patient artists' booking representative about use of safety devices 8. Include patient/ patient artists' booking representative in decisions related to safety Outcome: Progressing Note: Evaluation of progress towards goal: Proper identifiers used with patient care and medication administration. Remains free of injury during shift Problem: Knowledge Deficit Goal: Patient/patient artists' booking representative demonstrates understanding of disease process, treatment [...] Collaborate with ancillary departments 14. Include patient/patient artists' booking representative in decisions related to anxiety Outcome: [...] be free from fall Description: Interventions: 1. [place] to environment 2. Hourly rounds addressing the [...] non-skid footwear 11. Teach patient and patient artists' booking representative to maintain environment for safety and [...] (cane, walker) within reach 19. Request patient artists' booking representative bring adaptive equipment/mobility aids from home or obtain and provide as needed 20. Consult pharmacy regarding effects of med's affecting mobility, cognition, and alternatives 21. Obtain physician order for PT if risk factors associated with mobility are present 22. Obtain physician order for OT as appropriate 23. Utilize diversional activities 24. Educate patient and patient artists' booking representative how to maintain a safe environment during visitation times (notify nurse prior to leaving bedside) 25. Consider appropriateness of medical or non-medical chemist 26. Set up voiding schedule as appropriate (every 2 hours) Outcome: Progressing Note: Evaluation of progress towards goal: Call light within reach. Remains free of fall or injury. Environment free of clutter. Problem: Safety - Medical Restraint Goal: Remains free of injury from restraints (Restraint for Interference with Secondary Set Up Man) Description: INTERVENTIONS: 1. Determine that other, less [...] Free from restraint(s) (Restraint for Interference with Secondary Set Up Man) Description: INTERVENTIONS: 1. ONCE/SHIFT or MINIMUM Q12H: [...] the safety outcome Outcome: Completed Per Lesia COVARRUBIAS CN patient's and sister were very upset that [facility] did not accept patient. They declined to offer any other choices for facilities to her at this time. Lesia encouraged them to allow her to make referrals to some TBI facilities at [facility] and in [place] but at this time they are angry that [facility] did not accept patient. [employer] will request SW follow up with them in the morning to obtain choices to continue developing a transition of care plan. DISCHARGE PLANNING NOTE Referral sent to [facility] P#[phone]; F#[phone]); [facility], a division of [facility] P# [phone] [calling report];/[facility] (P# [calling report]; F# ) DISCHARGE PLANNING NOTE Per RN during discharge transition rounds, barriers to discharge are: Telesitter, PMR re-eval, Seroquel dose adjustment. Discharge Plan: IPR for TBI rehab. PT/OT recommended IPR. CN met with and sister Earlene. wants a referral sent [facility]. CN discussed discharge and making referrals to other TBI/ IPR rehabs in the state, and sister stated they are putting all their zak in [facility] being able to accept the patient. Registry Rn will continue to follow for any discharge needs. - Lesia Caba RN 07/13/24 12:18 PM Addendum: [facility] is not in network with patients [employer]. gave CN two more choices : [facility]PR and [facility] rehab. [facility] tasked to send referrals. and sister are calling insurance to ask about a one time contract to [facility]. Ethel , [employer] rep, stopped in to talk to and sister. - Lesia Caba RN 07/13/24 2:10 PM Addendum: Patient's and sister asked CN to listen and talk to insurance special agent regarding a one time approval for the IPR: [facility]. Truck Switcher Xiomy with [employer] stated attending or managing physician needs to document patient's health status and progression, information on why the patient needs to go this specific facility for rehab, include diagnosis codes and services codes. Fax: Prior Auth Request to [phone] attn: Prior Auth Request at [address]. CN sent pic chat to Dr. Nichol [...] PM DISCHARGE PLANNING NOTE Referral to [facility] (P# ; F# ) Occupational Therapy [...] reflux disease) High cholesterol Perforated sigmoid colon ([facility]) Past Surgical History: Procedure Laterality Date ARM EXPLORATION WITH REPAIR LACERATED ULNAR ARTERY Left 11/24/2019 Performed by Skyler Bowen MD at [facility] [place] 3YEARS AGO COLOSTOMY CLOSURE Therapy Plan Need [...] early mobility guidelines. Equipment: gait belt, telemetry Telemetry/Cleaning Professional: Yes Oxygen Used: room air Other: fall [...] and pants. Patient was able to static email marketing assistant front of toilet with contact guard. Patient was unable to void due to trouble with processing, safety and judgement. Home Management - IADL Other: patient has trouble executing tasks. patient was able to ambulate into bathroom with contact guard. patient required min assist to doff underware and pants. Patient was able to static email marketing assistant front of toilet with contact guard. Patient was unable to void due to trouble with processing, safety and judgement. Hearing / Speech / Vision Hearing: Within Functional Limits Speech: Within Functional Limits Cognition Overall Cognitive Status: Exceptions to Within Functional Limits Arousal/Alertness: Delayed responses to stimuli Orientation Level: Oriented to person (patient was not able to recognize guille was not able to recall date [...] problems. Principal Problem: Dementia with behavioral disturbance ([facility]) Active Problems: Altered mental status Status post colostomy, follow-up exam ([facility]) Physical Therapy Evaluation Discharge Recommendations PT Recommendations: [...] from admission 07/06 as a transfer from [facility] for neurological work up. Patient diagnosed with early onset dementia 2022, per spouse report after skilled nursing and med changes cognitive status had improved and stabilized prior to fall in May 2024. 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 Pt discharged to inpatient treatment facility and returned to [facility] for scheduled MRI. 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 Principal Problem: Dementia with behavioral disturbance ([facility]) Active Problems: Altered mental status Status post colostomy, follow-up exam ([facility]) Problem: Safety Goal: Patient will be injury free during hospitalization Description: INTERVENTIONS: 1. Assess patient's risk for falls and implement fall prevention plan of care per policy 2. Provide and maintain a safe environment 3. Proper use of double Identifiers 4. Medication administration using the 5 rights 5. Hand hygiene 6. Specimens are labeled at the bedside 7. Instruct patient/ patient artists' booking representative about use of safety devices 8. Include patient/ patient artists' booking representative in decisions related to safety Outcome: Progressing Note: Evaluation of progress towards goal: Patient remains injury and fall free. Safety precautions in place: call light within reach, bed in lowest position, personal belongings within reach, oriented to environment, and non-slip footwear on. Problem: Knowledge Deficit Goal: Patient/patient artists' booking representative demonstrates understanding of disease process, treatment [...] Collaborate with ancillary departments 14. Include patient/patient artists' booking representative in decisions related to anxiety Outcome: Progressing Note: Evaluation of progress towards goal: Patient's has at bedside to help with spells of anxiety. Problem: Moderate - High Risk Fall Score Description: Gallegos Fall Score of =/> 25 or indicated by [facility] Assessment Goal: Patient should be free from fall Description: Interventions: 1. [place] to environment 2. Hourly rounds addressing the [...] non-skid footwear 11. Teach patient and patient artists' booking representative to maintain environment for safety and [...] (cane, walker) within reach 19. Request patient artists' booking representative bring adaptive equipment/mobility aids from home or obtain and provide as needed 20. Consult pharmacy regarding effects of med's affecting mobility, cognition, and alternatives 21. Obtain physician order for PT if risk factors associated with mobility are present 22. Obtain physician order for OT as appropriate 23. Utilize diversional activities 24. Educate patient and patient artists' booking representative how to maintain a safe environment during visitation times (notify nurse prior to leaving bedside) 25. Consider appropriateness of medical or non-medical chemist 26. Set up voiding schedule as appropriate (every 2 hours) Outcome: Progressing Note: Evaluation of progress towards goal: Patient remains injury and fall free. Safety precautions in place: call light within reach, bed in lowest position, personal belongings within reach, oriented to environment, and non-slip footwear on. Problem: Safety - Medical Restraint Goal: Remains free of injury from restraints (Restraint for Interference with Secondary Set Up Man) Description: INTERVENTIONS: 1. Determine that other, less [...] Free from restraint(s) (Restraint for Interference with Secondary Set Up Man) Description: INTERVENTIONS: 1. ONCE/SHIFT or MINIMUM Q12H: [...] CN escalated this case to CN leadership. Registry Rn will continue to follow for any discharge [...] at the bedside 7. Instruct patient/ patient artists' booking representative about use of safety devices 8. Include patient/ patient artists' booking representative in decisions related to safety Outcome: Progressing Note: Evaluation of progress towards goal: Patient remains injury free at present time. Safe environment provided and maintained. Medications administered using 5 rights. Problem: Knowledge Deficit Goal: Patient/patient artists' booking representative demonstrates understanding of disease process, treatment [...] Collaborate with ancillary departments 14. Include patient/patient artists' booking representative in decisions related to anxiety Outcome: Progressing Note: Evaluation of progress towards goal: Patient has family at bedside assisting with anxiety. Problem: Safety - Medical Restraint Goal: Remains free of injury from restraints (Restraint for Interference with Secondary Set Up Man) Description: INTERVENTIONS: 1. Determine that other, less [...] Free from restraint(s) (Restraint for Interference with Secondary Set Up Man) Description: INTERVENTIONS: 1. ONCE/SHIFT or MINIMUM Q12H: [...] continue to follow along. Prognosis Services: Skilled METALLURGY TEACHER services to address the above deficits Prognosis/Potential: [...] Plan Speech Therapy Care Plan (Active) Template: [facility] Speech Problem: Auditory Comprehension Dates: Start: 07/12/24 Disciplines: METALLURGY TEACHER Goal: LTG: Patient will comprehend communication related to basic medical and social needs and utilize compensatory strategies to maintain safety in a functional living environment Dates: Start: 07/12/24 Expected End: 08/12/24 Disciplines: METALLURGY TEACHER Goal: STG: Patient will answer complex yes/no questions with 90% accuracy with minimal cueing Dates: Start: 07/12/24 Expected End: 08/12/24 Disciplines: METALLURGY TEACHER Goal: STG: Patient will complete 1-3 step commands with 90% accuracy with minimal cueing Dates: Start: 07/12/24 Expected End: 08/12/24 Disciplines: METALLURGY TEACHER Goal: STG: Patient will complete simple, phrase level auditory comprehension tasks with 90% accuracy with minimal cueing Dates: Start: 07/12/24 Expected End: 08/12/24 Disciplines: METALLURGY TEACHER Problem: Cognitive Linguistic Dates: Start: 07/12/24 Disciplines: METALLURGY TEACHER Goal: LTG: Patient will display functional cognitive-linguistic skills to demonstrate appropriate communication and safety within daily activities in a functional living environment Dates: Start: 07/12/24 Expected End: 08/12/24 Disciplines: METALLURGY TEACHER Goal: STG: Patient will demonstrate sustained attention by maintaining focus during a task for 10 minutes with minimal assistance Dates: Start: 07/12/24 Expected End: 08/12/24 Disciplines: METALLURGY TEACHER Goal: STG: Patient will be appropriately oriented to person, place, time and situation with 90% accuracy with minimal cueing Dates: Start: 07/12/24 Expected End: 08/12/24 Disciplines: METALLURGY TEACHER Goal: STG: Patient will recall information discussed during therapy session via retelling/answering questions with 90% accuracy with minimal cueing Dates: Start: 07/12/24 Expected End: 08/12/24 Disciplines: METALLURGY TEACHER Problem: High Level Language Dates: Start: 07/12/24 Disciplines: METALLURGY TEACHER Goal: LTG: Patient will demonstrate use of self-awareness, goal setting, planning, initiation, self-monitoring and problem solving during daily activities to improve safety and awareness in a functional living environment Dates: Start: 07/12/24 Expected End: 08/12/24 Disciplines: METALLURGY TEACHER Goal: STG: Patient will sequence 4-6 steps to a task (verbal, written, pictures) with 90% accuracy with minimal cueing Dates: Start: 07/12/24 Expected End: 08/12/24 Disciplines: METALLURGY TEACHER Goal: STG: Patient will provide 3 appropriate solutions to problems of daily living with 90% accuracy with minimal cueing Dates: Start: 07/12/24 Expected End: 08/12/24 Disciplines: METALLURGY TEACHER Goal: STG: Patient will demonstrate functional problem solving and safety awareness with 90% accuracy in daily living tasks in order to increase safe interactions with environment and decrease assistance from caregivers Dates: Start: 07/12/24 Expected End: 08/12/24 Disciplines: METALLURGY TEACHER Problem: Verbal Expression Dates: Start: 07/12/24 Disciplines: METALLURGY TEACHER Goal: LTG: Patient will utilize compensatory strategies to communicate wants and needs effectively to different conversational partners, maintain safety and participate socially in a functional living environment Dates: Start: 07/12/24 Expected End: 08/12/24 Disciplines: METALLURGY TEACHER Goal: STG: Patient will respond to simple/complex open ended questions during activities of daily living with 90% accuracy with minimal cueing Dates: Start: 07/12/24 Expected End: 08/12/24 Disciplines: METALLURGY TEACHER Goal: STG: Patient will maintain topic of conversation to decrease tangential speech with 90% accuracy with minimal cueing Dates: Start: 07/12/24 Expected End: 08/12/24 Disciplines: METALLURGY TEACHER Speech Therapy Care Plan (Resolved) There are no resolved problems. Principal Problem: Dementia with behavioral disturbance ([facility]) Active Problems: Altered mental status Status post colostomy, follow-up exam ([facility]) Problem: Safety - Medical Restraint Goal: Remains free of injury from restraints (Restraint for Interference with Secondary Set Up Man) Description: INTERVENTIONS: 1. Determine that other, less [...] Free from restraint(s) (Restraint for Interference with Secondary Set Up Man) Description: INTERVENTIONS: 1. ONCE/SHIFT or MINIMUM Q12H: [...] elimination needs BEHAVIORAL RESTRAINTS PROVIDER ONE HOUR [id number] EVALUATION NOTE Estella Jeffery was evaluated on [...] at the bedside 7. Instruct patient/ patient artists' booking representative about use of safety devices 8. Include patient/ patient artists' booking representative in decisions related to safety Outcome: Progressing Note: Evaluation of progress towards goal: Patient remains injury and fall free. Safety precautions in place: call light within reach, bed in lowest position, personal belongings within reach, oriented to environment, and non-slip footwear on. Problem: Knowledge Deficit Goal: Patient/patient artists' booking representative demonstrates understanding of disease process, treatment [...] Collaborate with ancillary departments 14. Include patient/patient artists' booking representative in decisions related to anxiety Outcome: Progressing Note: Evaluation of progress towards goal: Patient has at bedside aiding in assisting with anxiety. Problem: Moderate - High Risk Fall Score Description: Gallegos Fall Score of =/> 25 or indicated by [facility] Assessment Goal: Patient should be free from fall Description: Interventions: 1. [place] to environment 2. Hourly rounds addressing the [...] non-skid footwear 11. Teach patient and patient artists' booking representative to maintain environment for safety and [...] (cane, walker) within reach 19. Request patient artists' booking representative bring adaptive equipment/mobility aids from home or obtain and provide as needed 20. Consult pharmacy regarding effects of med's affecting mobility, cognition, and alternatives 21. Obtain physician order for PT if risk factors associated with mobility are present 22. Obtain physician order for OT as appropriate 23. Utilize diversional activities 24. Educate patient and patient artists' booking representative how to maintain a safe environment during visitation times (notify nurse prior to leaving bedside) 25. Consider appropriateness of medical or non-medical chemist 26. Set up voiding schedule as appropriate [...] unpredictable and confused. Discharge Plan: [facility] psych stated [facility] was sent a referral and they have declined. Waiting input from psych. Registry Rn will continue to follow for any discharge needs. - Lesia Caba RN 07/11/24 12:06 PM Late entery: CN met with patient, Kari, and sister Earlene on Tuesday afternoon. and sister want the patient to go to a Traumatic Brain Injury rehab unit. CN began researching TBI Rehab units in the area, reported back to the and sister after finding TBI rehab units in [facility]. Sister asked for me to look in [facility]. and sister do not want any referrals send until they are able to meet with the neurologist again, sister wants to look into the TBI units in the [facility] herself before any referrals are sent. - Lesia Caba RN 07/12/24 8:11 AM Referral sent to [facility] to assess for [facility]. After a clinical review and screening was completed [facility] assessed patient as inappropriate for treatment at that facility. Will alert care team. - NANCY Martines 07/11/24 10:33 AM DISCHARGE PLANNING NOTE Updates to [facility] [phone] Problem: Safety Goal: Patient will be injury free during hospitalization Description: INTERVENTIONS: 1. Assess patient's risk for falls and implement fall prevention plan of care per policy 2. Provide and maintain a safe environment 3. Proper use of double Identifiers 4. Medication administration using the 5 rights 5. Hand hygiene 6. Specimens are labeled at the bedside 7. Instruct patient/ patient artists' booking representative about use of safety devices 8. Include patient/ patient artists' booking representative in decisions related to safety Outcome: Progressing Note: Evaluation of progress towards goal: Patient remains injury free at present time. Safe environment provided and maintained. Medications administered using 5 rights. Problem: Knowledge Deficit Goal: Patient/patient artists' booking representative demonstrates understanding of disease process, treatment [...] Collaborate with ancillary departments 14. Include patient/patient artists' booking representative in decisions related to anxiety Outcome: Progressing Note: Evaluation of progress towards goal: Patient has at bedside assisting with anxiety. Problem: Moderate - High Risk Fall Score Description: Gallegos Fall Score of =/> 25 or indicated by [facility] Assessment Goal: Patient should be free from fall Description: Interventions: 1. [place] to environment 2. Hourly rounds addressing the [...] non-skid footwear 11. Teach patient and patient artists' booking representative to maintain environment for safety and [...] (cane, walker) within reach 19. Request patient artists' booking representative bring adaptive equipment/mobility aids from home or obtain and provide as needed 20. Consult pharmacy regarding effects of med's affecting mobility, cognition, and alternatives 21. Obtain physician order for PT if risk factors associated with mobility are present 22. Obtain physician order for OT as appropriate 23. Utilize diversional activities 24. Educate patient and patient artists' booking representative how to maintain a safe environment during visitation times (notify nurse prior to leaving bedside) 25. Consider appropriateness of medical or non-medical chemist 26. Set up voiding schedule as appropriate [...] injury from restraints (Restraint for Interference with Secondary Set Up Man) Description: INTERVENTIONS: 1. Determine that other, less [...] Free from restraint(s) (Restraint for Interference with Secondary Set Up Man) Description: INTERVENTIONS: 1. ONCE/SHIFT or MINIMUM Q12H: [...] elimination needs BEHAVIORAL RESTRAINTS PROVIDER ONE HOUR [id number] EVALUATION NOTE Estella Jeffery was evaluated on [...] at the bedside 7. Instruct patient/ patient artists' booking representative about use of safety devices 8. Include patient/ patient artists' booking representative in decisions related to safety Outcome: [...] hygiene technique. 7. Identify and instruct patient/patient artists' booking representative in use of appropriate isolation precautions for identified infection/symptoms. 8. Provide and discuss with patient/patient artists' booking representative on educational MDRO sheet. 9. Encourage and monitor nutritional status daily and consult pet trainer if indicated. 10. Implement neutropenic guidelines as needed. Outcome: Progressing Note: Evaluation of progress towards goal: Patient remains free of any signs of infection. Signs and symptoms being monitor such as fevers, chills, warm/red areas. Problem: Knowledge Deficit Goal: Patient/patient artists' booking representative demonstrates understanding of disease process, treatment [...] Collaborate with ancillary departments 14. Include patient/patient artists' booking representative in decisions related to anxiety Outcome: Progressing Note: Evaluation of progress towards goal: Patient's anxiety is at manageable level. Problem: Safety - Medical Restraint Goal: Remains free of injury from restraints (Restraint for Interference with Secondary Set Up Man) Description: INTERVENTIONS: 1. Determine that other, less [...] Free from restraint(s) (Restraint for Interference with Secondary Set Up Man) Description: INTERVENTIONS: 1. ONCE/SHIFT or MINIMUM Q12H: [...] on patient's door 9. Provide patient/ patient artists' booking representative with isolation education. Outcome: Progressing Note: Evaluation of progress towards goal: Discard single-use items. Clean reusable equipment. Wear gloves for direct and indirect patient care. Wash hands before and after care of patient. Problem: Moderate - High Risk Fall Score Description: Gallegos Fall Score of =/> 25 or indicated by [facility] Assessment Goal: Patient should be free from fall Description: Interventions: 1. [place] to environment 2. Hourly rounds addressing the [...] non-skid footwear 11. Teach patient and patient artists' booking representative to maintain environment for safety and [...] (cane, walker) within reach 19. Request patient artists' booking representative bring adaptive equipment/mobility aids from home or obtain and provide as needed 20. Consult pharmacy regarding effects of med's affecting mobility, cognition, and alternatives 21. Obtain physician order for PT if risk factors associated with mobility are present 22. Obtain physician order for OT as appropriate 23. Utilize diversional activities 24. Educate patient and patient artists' booking representative how to maintain a safe environment during visitation times (notify nurse prior to leaving bedside) 25. Consider appropriateness of medical or non-medical chemist 26. Set up voiding schedule as appropriate [...] at the bedside 7. Instruct patient/ patient artists' booking representative about use of safety devices 8. Include patient/ patient artists' booking representative in decisions related to safety Outcome: [...] hygiene technique. 7. Identify and instruct patient/patient artists' booking representative in use of appropriate isolation precautions for identified infection/symptoms. 8. Provide and discuss with patient/patient artists' booking representative on educational MDRO sheet. 9. Encourage and monitor nutritional status daily and consult pet trainer if indicated. 10. Implement neutropenic guidelines as needed. Outcome: Progressing Note: Evaluation of progress towards goal: patient remains afebrile at this time Problem: Knowledge Deficit Goal: Patient/patient artists' booking representative demonstrates understanding of disease process, treatment [...] Collaborate with ancillary departments 14. Include patient/patient artists' booking representative in decisions related to anxiety Outcome: Progressing Note: Evaluation of progress towards goal: discussed w/ patient coping strategies & dietary changes that may aid in controlling stress & anxiety. Problem: Safety - Medical Restraint Goal: Remains free of injury from restraints (Restraint for Interference with Secondary Set Up Man) Description: INTERVENTIONS: 1. Determine that other, less [...] Free from restraint(s) (Restraint for Interference with Secondary Set Up Man) Description: INTERVENTIONS: 1. ONCE/SHIFT or MINIMUM Q12H: [...] on patient's door 9. Provide patient/ patient artists' booking representative with isolation education. Outcome: Progressing Note: Evaluation of progress towards goal: patient remains afebrile at this time Problem: Moderate - High Risk Fall Score Description: Gallegos Fall Score of =/> 25 or indicated by [facility] Assessment Goal: Patient should be free from fall Description: Interventions: 1. Reydon to environment 2. Hourly rounds addressing the [...] non-skid footwear 11. Teach patient and patient artists' booking representative to maintain environment for safety and [...] (cane, walker) within reach 19. Request patient artists' booking representative bring adaptive equipment/mobility aids from home or obtain and provide as needed 20. Consult pharmacy regarding effects of med's affecting mobility, cognition, and alternatives 21. Obtain physician order for PT if risk factors associated with mobility are present 22. Obtain physician order for OT as appropriate 23. Utilize diversional activities 24. Educate patient and patient artists' booking representative how to maintain a safe environment during visitation times (notify nurse prior to leaving bedside) 25. Consider appropriateness of medical or non-medical chemist 26. Set up voiding schedule as appropriate [...] for restraints, re-consult psych. Discharge Plan: TBD. VILLANUEVA discussed case with colin Solorio SW Registry Rn will continue to follow for any discharge [...] at the bedside 7. Instruct patient/ patient artists' booking representative about use of safety devices 8. Include patient/ patient artists' booking representative in decisions related to safety Outcome: [...] hygiene technique. 7. Identify and instruct patient/patient artists' booking representative in use of appropriate isolation precautions for identified infection/symptoms. 8. Provide and discuss with patient/patient artists' booking representative on educational MDRO sheet. 9. Encourage and monitor nutritional status daily and consult pet trainer if indicated. 10. Implement neutropenic guidelines as needed. Outcome: Progressing Note: Evaluation of progress towards goal: Skin integrity remains in stable condition; remains w/o ss of infection, fever, pain, or increased discomfort. Problem: Knowledge Deficit Goal: Patient/patient artists' booking representative demonstrates understanding of disease process, treatment [...] - 24 or indicated by [facility] Assessment Goal: Patient should be free from fall Description: Interventions: 1. [place] to environment 2. Hourly rounds addressing the [...] non-skid footwear 11. Teach patient and patient artists' booking representative to maintain environment for safety and [...] Collaborate with ancillary departments 14. Include patient/patient artists' booking representative in decisions related to anxiety Outcome: [...] on patient's door 9. Provide patient/ patient artists' booking representative with isolation education. Outcome: Progressing Note: Evaluation of progress towards goal: Skin integrity remains in stable condition; remains w/o ss of infection, fever, pain, or increased discomfort. Problem: Moderate - High Risk Fall Score Description: Gallegos Fall Score of =/> 25 [facility] Goal: Patient should be free from fall Description: Interventions: 1. Rey[place] to environment 2. Hourly rounds addressing the [...] non-skid footwear 11. Teach patient and patient artists' booking representative to maintain environment for safety and [...] (cane, walker) within reach 19. Request patient artists' booking representative bring adaptive equipment/mobility aids from home or obtain and provide as needed 20. Consult pharmacy regarding effects of med's affecting mobility, cognition, and alternatives 21. Obtain physician order for PT if risk factors associated with mobility are present 22. Obtain physician order for OT as appropriate 23. Utilize diversional activities 24. Educate patient and patient artists' booking representative how to maintain a safe environment during visitation times (notify nurse prior to leaving bedside) 25. Consider appropriateness of medical or non-medical chemist 26. Set up voiding schedule as appropriate (every 2 hours) Outcome: Progressing Note: Evaluation of progress towards goal: Call light within reach. Remains free of fall or injury. Environment free of clutter. BEHAVIORAL RESTRAINTS PROVIDER ONE HOUR [id number] EVALUATION NOTE Estella Jeffery was evaluated on [...] at the bedside 7. Instruct patient/ patient artists' booking representative about use of safety devices 8. Include patient/ patient artists' booking representative in decisions related to safety Outcome: [...] hygiene technique. 7. Identify and instruct patient/patient artists' booking representative in use of appropriate isolation precautions for identified infection/symptoms. 8. Provide and discuss with patient/patient artists' booking representative on educational MDRO sheet. 9. Encourage and monitor nutritional status daily and consult pet trainer if indicated. 10. Implement neutropenic guidelines as needed. Outcome: Progressing Note: Evaluation of progress towards goal: patient remains afebrile at this time Problem: Knowledge Deficit Goal: Patient/patient artists' booking representative demonstrates understanding of disease process, treatment [...] - 24 or indicated by [facility] Assessment Goal: Patient should be free from fall Description: Interventions: 1. [place] to environment 2. Hourly rounds addressing the [...] non-skid footwear 11. Teach patient and patient artists' booking representative to maintain environment for safety and [...] Collaborate with ancillary departments 14. Include patient/patient artists' booking representative in decisions related to anxiety Outcome: [...] injury from restraints (Restraint for Interference with Secondary Set Up Man) Description: INTERVENTIONS: 1. Determine that other, less [...] Free from restraint(s) (Restraint for Interference with Secondary Set Up Man) Description: INTERVENTIONS: 1. ONCE/SHIFT or MINIMUM Q12H: [...] on patient's door 9. Provide patient/ patient artists' booking representative with isolation education. Outcome: Progressing Note: Evaluation of progress towards goal: patient remains afebrile at this time DISCHARGE PLANNING NOTE Clinical updates including sent to. [facility] [address] (P# [phone] ; F# [phone]) via [employer] Query Response Note CDI QUERY TEXT: Altered [...] . Thank you, Ethel Bueno RN, CDI [email or web address] The patient's Clinical Indicators include: As above CDI RESPONSE TEXT: Patient has progression of dementia causing agitation, no evidence of metabolic or toxic encephalopathy. Query created by: Ethel Bueno on 07/09/2024 5:42 AM Electronically signed by: Lonnie Baker MD 07/09/2024 3:22 PM DISCHARGE PLANNING NOTE Referral sent to [facility]. (P# [phone] ; F# [phone]) via efax DISCHARGE PLANNING NOTE Per RN during discharge transition rounds, barriers to discharge are: Needs MRI with sedation, LP with sedation, non-violent restraints, confused, restless, and disoriented, psych needs to see Discharge Plan: TBD. Planning placement or inpatient behavioral unit. CN does not believe it is safe for patient to return home. Psych SW following. Registry Rn will continue to follow for any discharge [...] at the bedside 7. Instruct patient/ patient artists' booking representative about use of safety devices 8. Include patient/ patient artists' booking representative in decisions related to safety Outcome: [...] hygiene technique. 7. Identify and instruct patient/patient artists' booking representative in use of appropriate isolation precautions for identified infection/symptoms. 8. Provide and discuss with patient/patient artists' booking representative on educational MDRO sheet. 9. Encourage and monitor nutritional status daily and consult pet trainer if indicated. 10. Implement neutropenic guidelines as needed. Outcome: Progressing Note: Evaluation of progress towards goal: monitor s/s of infection Problem: Knowledge Deficit Goal: Patient/patient artists' booking representative demonstrates understanding of disease process, treatment [...] - 24 or indicated by [facility] Assessment Goal: Patient should be free from fall Description: Interventions: 1. [place] to environment 2. Hourly rounds addressing the [...] non-skid footwear 11. Teach patient and patient artists' booking representative to maintain environment for safety and [...] Collaborate with ancillary departments 14. Include patient/patient artists' booking representative in decisions related to anxiety Outcome: [...] injury from restraints (Restraint for Interference with Secondary Set Up Man) Description: INTERVENTIONS: 1. Determine that other, less [...] Free from restraint(s) (Restraint for Interference with Secondary Set Up Man) Description: INTERVENTIONS: 1. ONCE/SHIFT or MINIMUM Q12H: [...] hourly rounding BEHAVIORAL RESTRAINTS PROVIDER ONE HOUR [id number] EVALUATION NOTE Estella Jeffery was evaluated on [...] PPH NIGHT BEHAVIORAL RESTRAINTS PROVIDER ONE HOUR [id number] EVALUATION NOTE Estella Jeffery was evaluated on [...] at the bedside 7. Instruct patient/ patient artists' booking representative about use of safety devices 8. Include patient/ patient artists' booking representative in decisions related to safety Outcome: [...] hygiene technique. 7. Identify and instruct patient/patient artists' booking representative in use of appropriate isolation precautions for identified infection/symptoms. 8. Provide and discuss with patient/patient artists' booking representative on educational MDRO sheet. 9. Encourage and monitor nutritional status daily and consult pet trainer if indicated. 10. Implement neutropenic guidelines as needed. Outcome: Progressing Note: Evaluation of progress towards goal: Patient has no infection at this time. Problem: Knowledge Deficit Goal: Patient/patient artists' booking representative demonstrates understanding of disease process, treatment [...] - 24 or indicated by [facility] Assessment Goal: Patient should be free from fall Description: Interventions: 1. [place] to environment 2. Hourly rounds addressing the [...] non-skid footwear 11. Teach patient and patient artists' booking representative to maintain environment for safety and [...] Collaborate with ancillary departments 14. Include patient/patient artists' booking representative in decisions related to anxiety Outcome: [...] at the bedside 7. Instruct patient/ patient artists' booking representative about use of safety devices 8. Include patient/ patient artists' booking representative in decisions related to safety Outcome: [...] hygiene technique. 7. Identify and instruct patient/patient artists' booking representative in use of appropriate isolation precautions for identified infection/symptoms. 8. Provide and discuss with patient/patient artists' booking representative on educational MDRO sheet. 9. Encourage and monitor nutritional status daily and consult pet trainer if indicated. 10. Implement neutropenic guidelines as needed. Outcome: Progressing Note: Evaluation of progress towards goal: monitor s/s of infection, monitor labs, standard precautions Problem: Knowledge Deficit Goal: Patient/patient artists' booking representative demonstrates understanding of disease process, treatment [...] be free from fall Description: Interventions: 1. [place] to environment 2. Hourly rounds addressing the [...] non-skid footwear 11. Teach patient and patient artists' booking representative to maintain environment for safety and [...] at the bedside 7. Instruct patient/ patient artists' booking representative about use of safety devices 8. Include patient/ patient artists' booking representative in decisions related to safety Outcome: [...] hygiene technique. 7. Identify and instruct patient/patient artists' booking representative in use of appropriate isolation precautions for identified infection/symptoms. 8. Provide and discuss with patient/patient artists' booking representative on educational MDRO sheet. 9. Encourage and monitor nutritional status daily and consult pet trainer if indicated. 10. Implement neutropenic guidelines as needed. Outcome: Progressing Note: Evaluation of progress towards goal: Patient remains free of any signs of infection. Signs and symptoms being monitor such as fevers, chills, warm/red areas. Problem: Knowledge Deficit Goal: Patient/patient artists' booking representative demonstrates understanding of disease process, treatment [...] - 24 or indicated by [facility] Assessment Goal: Patient should be free from fall Description: Interventions: 1. [place] to environment 2. Hourly rounds addressing the [...] non-skid footwear 11. Teach patient and patient artists' booking representative to maintain environment for safety and [...] Description: INTERVENTIONS: 1. Encourage patient or legal artists' booking representative to report early pain and ask [...] per policy 9. Teach patient or legal artists' booking representative interventions for comforting Outcome: Completed Note: Evaluation of progress towards goal: Patient has no complaints of pain. Reassessed per policy. An attempt was made to interview the patient today in the presence of his . The patient refused and asked the story writer to leave stating that he does not want a psychiatric evaluation. Psychiatry will sign off. Images from the original note were not included. DISCHARGE PLANNING NOTE [employer] Supervisor met with patient, introduced self, and explained [...] reflux disease) High cholesterol Perforated sigmoid colon ([facility]) Prior to admission patient was living with spouse/significant other and self care. Medical equipment patient used prior to admission includes: CPAP. Patient spouse denies need for transportation/ food/ prescription medication assistance resources. PCP: JAE LOPEZ MD Pharmacy:[facility] PCP and pharmacy confirmed with patient. CN [...] AM documented in this encounter [facility] 07-22-2024 Nurse Note AVS discussed with patient and family, no further questions about discharge. No further needs identified. Patient taken downstairs by wheelchair to be driven home by . Patient still off unit at this time 11:58 s/p sedated MRI & LP procedure. Per neurologist, Dr Johnson, patient needs to remain flat 1-2hrs & may have regular diet. [employer] Yard Supervisor awaiting patient return to unit & per report 1:1 sitter remains at patient bedside. documented in this encounter [facility] 07-22-2024 Plan of care note Problem: Safety [...] at the bedside 7. Instruct patient/ patient artists' booking representative about use of safety devices 8. Include patient/ patient artists' booking representative in decisions related to safety Outcome: Progressing Note: Evaluation of progress towards goal: pt remains free from injury. Family at bedside. Problem: Knowledge Deficit Goal: Patient/patient artists' booking representative demonstrates understanding of disease process, treatment [...] =/> 25 or indicated by [facility] Assessment Goal: Patient should be free from fall Description: Interventions: 1. [place] to environment 2. Hourly rounds addressing the [...] non-skid footwear 11. Teach patient and patient artists' booking representative to maintain environment for safety and [...] (cane, walker) within reach 19. Request patient artists' booking representative bring adaptive equipment/mobility aids from home or obtain and provide as needed 20. Consult pharmacy regarding effects of med's affecting mobility, cognition, and alternatives 21. Obtain physician order for PT if risk factors associated with mobility are present 22. Obtain physician order for OT as appropriate 23. Utilize diversional activities 24. Educate patient and patient artists' booking representative how to maintain a safe environment during visitation times (notify nurse prior to leaving bedside) 25. Consider appropriateness of medical or non-medical chemist 26. Set up voiding schedule as appropriate (every 2 hours) Outcome: Progressing Note: Evaluation of progress towards goal: pt remains free from falls. Fall precautions in place and family at bedside Problem: Moderate - High Risk Fall Score Description: Gallegos Fall Score of =/> 25 or indicated by [facility] Assessment Goal: Patient should be free from fall Description: Interventions: 1. [place] to environment 2. Hourly rounds addressing the [...] non-skid footwear 11. Teach patient and patient artists' booking representative to maintain environment for safety and [...] (cane, walker) within reach 19. Request patient artists' booking representative bring adaptive equipment/mobility aids from home or obtain and provide as needed 20. Consult pharmacy regarding effects of med's affecting mobility, cognition, and alternatives 21. Obtain physician order for PT if risk factors associated with mobility are present 22. Obtain physician order for OT as appropriate 23. Utilize diversional activities 24. Educate patient and patient artists' booking representative how to maintain a safe environment during visitation times (notify nurse prior to leaving bedside) 25. Consider appropriateness of medical or non-medical chemist 26. Set up voiding schedule as appropriate (every 2 hours) Outcome: Progressing Note: Evaluation of progress towards goal: pt remains free from falls. Fall precautions in place and family at bedside [facility] 07-21-2024 Progress note Formatting of t his note might be different from the original. DISCHARGE PLANNING NOTE [employer] Supervisor spoke with RN KAY Graf and with charger tester Mylena about current situation regarding appeal decision and DC plan to home with outpatient services. [employer] Supervisor placed a call to the who was in the patient's room due to the questions she had re: the discharge plan. [employer] Supervisor spoke with , Kari on 07/21/24 at 1325. Mold Yard Supervisor reviewed Eduardo's DC Appeal Determination Notification with the who confirmed that she had received a voicemail from [facility] this morning. Mold Yard Supervisor explained that Eduardo had agreed with the termination of hospital services after having reviewed the uploaded clinical documents from this hospitalization that story writer had sent to them yesterday. expressed verbal understanding to story writer of Eduardo's decision. [employer] Supervisor explained that patient's financial liability would begin at Noon on 07/22/24 and offered our care navigation assistance with obtaining transportation to home. had questions about why referrals were not made to detention facilities that family had now chosen, [facility] ([place]) and [facility] ([facility]). [employer] Yard Supervisor explained to the that the patient did not meet the clinical criteria this time for a detention/rehab facility level of care and reminded her that a discussion about this took place this past week/yesterday with the treatment team. explained that she never agreed to take her home and her and her family now want SNF placement. [employer] Yard Supervisor continued to explain to the process of [...] prior to bringing him to the hospital. [employer] Yard Supervisor offered supportive listening to the and also offered for her to connect with patient's PCP, Dr. Lopez after she gets her home for resources. Mold Yard Supervisor also discussed the outpatient TBI clinic appointment that was being discussed yesterday and that information would be included on patient's after visit summary. [employer] Supervisor explained that if was not going to make arrangements to take patient home by noon on 07/22, that patient's financial responsibility of $2640.00 per day would begin. expressed verbal understanding to story writer. [employer] Yard Supervisor emailed financial responsibility form with instruction to charger testerCm (and cce'd today's RN Lesia Felton for awareness) for bedside delivery today. is aware of pending paper copy delivery of this form. - NELLI GLEZ [facility] 07/21/24 2:11 PM [facility] 07-21-2024 Progress note Formatting of t his note might be different from the original. DISCHARGE PLANNING NOTE We have received DC Appeal Determination Notification from Daryl and Daryl has agreed with the termination of services. Beneficiary liability begins 07.22.2024 by Noon. Beneficiary and/or beneficiary artists' booking representative were to be notified of determination via phone call. Joanta determination notification rec'd at 1032 and letter rec'd [phone] were received by story writer via fax. Mold Yard Supervisor uploaded documents to document list. Documentation updated. Mold Yard Supervisor received forwarded voice mail 07/21/24 at 1032 from Eduardo Duran's Immediate Advocacy Department , who had left message on Care Navigation Department voice mail at 1617 on 07/20/24, stating he was representing patient's family who had called [facility] asking 1) why denial reason wasn't given re: transfer to another care facility and 2) if the preferred facility by family was able to accept. Reference Case # given from Roger [id number]. Mold Yard Supervisor attempted to call Roger back on 07/21/24 at 1214 and story writer rec'd auto message from [facility] which stated only live phone calls with [facility] are Tuesday thru Tuesday. Mold Yard Supervisor left voicemail citing reference case # [id number]. Mold Yard Supervisor stated reason for return phone call and requested call back from Roger. - NELLI GLEZ [facility] 07/21/24 12:37 PM [facility] 07-21-2024 Plan of care note Problem: [...] at the bedside 7. Instruct patient/ patient artists' booking representative about use of safety devices 8. Include patient/ patient artists' booking representative in decisions related to safety Outcome: Progressing Note: Evaluation of progress towards goal: Pain will be adequately controlled to allow for rest and adl's Problem: Knowledge Deficit Goal: Patient/patient artists' booking representative demonstrates understanding of disease process, treatment [...] =/> 25 or indicated by [facility] Assessment Goal: Patient should be free from fall Description: Interventions: 1. [place] to environment 2. Hourly rounds addressing the [...] non-skid footwear 11. Teach patient and patient artists' booking representative to maintain environment for safety and [...] (cane, walker) within reach 19. Request patient artists' booking representative bring adaptive equipment/mobility aids from home or obtain and provide as needed 20. Consult pharmacy regarding effects of med's affecting mobility, cognition, and alternatives 21. Obtain physician order for PT if risk factors associated with mobility are present 22. Obtain physician order for OT as appropriate 23. Utilize diversional activities 24. Educate patient and patient artists' booking representative how to maintain a safe environment during visitation times (notify nurse prior to leaving bedside) 25. Consider appropriateness of medical or non-medical chemist 26. Set up voiding schedule as appropriate (every 2 hours) Outcome: Progressing Note: Evaluation of progress towards goal: fall bundle [employer] 07-21-2024 History of Present illness Narrative Images from the original note were not included. [facility]PITAL[facility] PROGRESS NOTE 07/21/2024 Patient Name: Estella Jeffery : 1965 Code status: Problem List: Principal Problem: Dementia with behavioral disturbance ([facility] [place]) Active Problems: Altered mental status Status post colostomy, follow-up exam ([facility] [place]) Consulting Providers Provider Service Specialty Mina Franks MD Psychiatry Psychiatry Jessica Johnson MD -- Neurology Kelley Sofia MD -- Neurology Chief complaint-behavioral issues Assessment and Plan: 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 [facility] Neurology General Neurology Consultation Progress Note Consult Neurology Service: [phone] Primary Team: Meng Hospitalist Chief Concern and Reason for Consultation: cognitive decline Interval History: Estella Jeffery is a 59 y.o. year old male for whom Neurology was consulted for chief concern of cognitive decline. He has history of hyperlipidemia, complex sleep apnea, GERD, type 2 diabetes, major neurocognitive disorder with biomarkers confirmed early onset Alzheimer's disease (established at [facility] in October 2022), and epilepsy [...] and proprioception throughout. Cerebellar: Able to do [id number] bilaterally; normal coordination Gait and station: Deferred. [...] confirmed early onset Alzheimer's disease (established at [facility] in October 2022), and epilepsy [...] to Tuesday 12-1:00 p.m. Primary Neurology service: [phone] Consult neurology service: [phone] Resident Stroke Service: [phone] If the patient belongs to the Stroke [...] from the original note were not included. [facility] 07/19/2024 Patient Name: Estella Jeffery : 1965 Code status: Problem List: Principal Problem: Dementia with behavioral disturbance ([facility]) Active Problems: Altered mental status Status post colostomy, follow-up exam ([facility]) Consulting Providers Provider Service Specialty Mina Franks MD Psychiatry Psychiatry Jessica Johnson MD -- Neurology Sonya Astudillo MD Z Physical Medicine and Rehabilitation Physical Medicine & Rehabilitation Chief complaint-behavioral issues 59-year-old male patient with Confirmed early onset Alzheimer's disease established in [facility] October 2022, patient had fall [...] per family request. I also spoke with [facility] neurology 's office. They said that they are independent office and they do not have resources for transfer or admission to [facility]. They also will not be [...] from the original note were not included. [facility] H[facility]PITALIST PROGRESS NOTE 07/18/2024 Patient Name: Estella Jeffery : 1965 Code status: Problem List: Principal Problem: Dementia with behavioral disturbance ([facility]) Active Problems: Altered mental status Status post colostomy, follow-up exam ([facility]) Consulting Providers Provider Service Specialty Mina Franks MD Psychiatry Psychiatry Jessica Johnson MD -- Neurology Sonya Astudillo MD Z Physical Medicine and Rehabilitation Physical Medicine & Rehabilitation Chief complaint-behavioral issues 59-year-old male patient with Confirmed early onset Alzheimer's disease established in [facility] October 2022, patient had fall [...] today. Patient working with therapies. Going to [facility]. No new weakness. Objective: Last Filed Vitals: [...] left ulnar artery Dementia with behavioral disturbance ([facility]) Altered mental status Status post colostomy, follow-up exam ([facility]) PLAN Cont PT/OT - [...] Summary: Pt transferred and direct admitted to [facility] as a transfer from [facility] for neurological evaluation 2/2 aggressive behavior and hostility. PMH: early-onset dementia, T2DM, GERD, and perforated colon. Biochemical Data, Medical Tests, and Procedures: 07/16, restraints: pt now out of restraints with top hat body maker at side Labs: Results from last 3 [...] (H) 05/10/2016 Lab Results Component Value Date [id number] 526 07/08/2024 Lab Results Component Value Date [...] capsule 500 mg 500 mg oral Q12H [facility] Nichol Heath MD 500 mg at 07/17/24 [...] injection 5,000 Units 5,000 Units subcutaneous Q8H [facility] Nichol Heath MD 5,000 Units at 07/17/24 0609 melatonin (CIRCADIN) tablet 5 mg 5 mg oral Nightly Cecile Henry MD 5 mg at 07/16/24 213 nicotine (NICODERM CQ) 21 mg/24 hr 1 [...] Skin (per nursing flow sheets): Skin Color: [place]; Pale (07/17/24904) Skin Temp: Warm; Dry (07/17/24904) [...] oz) Admit Weight: 83.9 kg (unknown, 06/24) [place] Body Weight: Unknown as no wt on file Weight Changes: No wt since admission 2/2 pt aggression Admit Body Mass Index: Same as current BMI Current Body Mass Index: Body mass index is 30.78 kg/m . Comparative Standards: Estimated Energy Needs: 3471-6785 kcals daily. Method and weight used: 25-32 kcal/kg IBW Estimated Protein Needs: 74-124 grams daily. Method and weight used: 1.2-2g protein/kg IBW Estimated Fluid Needs: 7997-8977 ml daily. Method weight used: 1 ml/kcal Comments: floor needs Malnutrition Status: Malnutrition Present: No NUTRITION DIAGNOSIS: Intake Diagnosis: Predicted suboptimal nutrient intake (NI 5.11.1)--ongoing NUTRITION INTERVENTIONS: Meals and Snacks: Continue per METALLURGY TEACHER and medical team recommendations Supplements: Will add [...] from the original note were not included. [facility] 07/17/2024 Patient Name: Estella Jeffery : 1965 Code status: Problem List: Principal Problem: Dementia with behavioral disturbance ([facility]) Active Problems: Altered mental status Status post colostomy, follow-up exam ([facility]) Consulting Providers Provider Service Specialty Mina Franks MD Psychiatry Psychiatry Jessica Johnson MD -- Neurology Sonya Astudillo MD Z Physical Medicine and Rehabilitation Physical Medicine & Rehabilitation Chief complaint-behavioral issues 59-year-old male patient with Confirmed early onset Alzheimer's disease established in [facility] October 2022, patient had fall [...] original note were not included. [facility] 07/16/2024 Patient Name: Estella Jeffery : 1965 Problem List: Principal Problem: Dementia with behavioral disturbance ([facility]) Active Problems: Altered mental status Status post colostomy, follow-up exam ([facility]) Assessment Rapid onset Dementia [...] Daily heparin (porcine), 5,000 Units, subcutaneous, Q8H JAERK melatonin, 5 mg, oral, Nightly nicotine, 1 [...] Spinal Fluid culture includes gram stain, CSF [[id number]] Collected: 07/10/24 0939 Specimen: Cerebrospinal Fluid Updated: [...] mental status Status post colostomy, follow-up exam ([facility]) SUBJECTIVE Resting in bed, no distress, afebrile [...] left ulnar artery Dementia with behavioral disturbance ([facility]) Altered mental status Status post colostomy, follow-up exam ([facility]) Recommendations/Plan: Continue PT, OT and speech therapy Contact guard assist with gait and transfers Will need 24 hour supervision Fall precautions, status post fall Family education Melatonin to regulate sleep cycle Awaiting on placement Will follow up with you for rehab needs Sonya Astudillo MD Images from the original note were not included. [facility] 07/15/2024 Patient Name: Estella Jeffery : 1965 Problem List: Principal Problem: Dementia with behavioral disturbance ([facility]) Active Problems: Altered mental status Status post colostomy, follow-up exam ([facility]) Assessment Rapid onset Dementia [...] Spinal Fluid culture includes gram stain, CSF [[id number]] Collected: 07/10/24 0939 Specimen: Cerebrospinal Fluid Updated: 07/15/24 0656 Gram Stain Result WHITE BLOOD CELLS PRESENT NO ORGANISMS SEEN ON CONCENTRATED SMEAR Culture NO GROWTH 5 DAYS Physical Medicine and Rehabilitation Daily Progress Note Today's Date and Time: 07/15/2024, 8:01 AM Subjective/Chief complaint: Dementia with behavioral disturbance ([facility]) Principal Problem: Dementia with behavioral disturbance ([facility]) Active Problems: Altered mental status Status post colostomy, follow-up exam ([facility]) SUBJECTIVE Resting in bed, no [...] No results found for: ALB , PROT @[facility]@ No results found for: CRP No results [...] left ulnar artery Dementia with behavioral disturbance ([facility]) Altered mental status Status post colostomy, follow-up exam ([facility]) Recommendations/Plan: Continue PT, OT and speech therapy Contact guard assist with gait and transfers Will need 24 hour supervision Fall precautions, status post fall Family education Melatonin to regulate sleep cycle Awaiting on placement Will follow up with you for rehab needs Sonya Astudillo MD Images from the original note were not included. [facility] Hospital[facility] 2024 Patient Name: Estella Jeffery : 1965 Problem List: Principal Problem: Dementia with behavioral disturbance ([facility]) Active Problems: Altered mental status Status post colostomy, follow-up exam ([facility]) Assessment Rapid onset Dementia [...] Spinal Fluid culture includes gram stain, CSF [[id number]] Collected: 07/10/24 09 Specimen: Cerebrospinal Fluid Updated: 07/14/24 09 Gram Stain Result WHITE BLOOD CELLS PRESENT NO ORGANISMS SEEN ON CONCENTRATED SMEAR Culture NO GROWTH 4 DAYS Physical Medicine and Rehabilitation Daily Progress Note Today's Date and Time: 2024, 8:23 AM Subjective/Chief complaint: Dementia with behavioral disturbance ([facility]) Principal Problem: Dementia with behavioral disturbance ([facility]) Active Problems: Altered mental status Status post colostomy, follow-up exam ([facility]) SUBJECTIVE Resting in bed, no [...] left ulnar artery Dementia with behavioral disturbance ([facility]) Altered mental status Status post colostomy, follow-up exam ([facility]) Recommendations/Plan: Continue PT, OT and speech therapy Contact guard assist with gait and transfers Will need 24 hour supervision Fall precautions, status post fall Family education Melatonin to regulate sleep cycle Awaiting on placement Will follow up with you for rehab needs Sonya Astudillo MD Images from the original note were not included. [facility] 07/13/2024 Patient Name: Estella Jeffery : 1965 Problem List: Principal Problem: Dementia with behavioral disturbance ([facility]) Active Problems: Altered mental status Status post colostomy, follow-up exam ([facility]) Assessment Rapid onset Dementia [...] Spinal Fluid culture includes gram stain, CSF [[id number]] Collected: 07/10/24 0939 Specimen: Cerebrospinal Fluid Updated: [...] left ulnar artery Dementia with behavioral disturbance ([facility]) Altered mental status Status post colostomy, follow-up exam ([facility]) Recommendations/Plan: Continue PT, OT and speech therapy Contact guard assist with gait and transfers Will benefit from inpatient rehab, TBI Unit Will need 24 hour supervision Fall precautions, status post fall Family education Melatonin to regulate sleep cycle Will follow up with you for rehab needs Sonya Astudillo MD Images from the original note were not included. [facility] 07/12/2024 Patient Name: Estella Jeffery : 1965 Problem List: Principal Problem: Dementia with behavioral disturbance ([facility]) Active Problems: Altered mental status Status post colostomy, follow-up exam ([facility]) Assessment Rapid onset Dementia [...] Spinal Fluid culture includes gram stain, CSF [[id number]] Collected: 07/10/24 0939 Specimen: Cerebrospinal Fluid Updated: 07/12/24 0736 Gram Stain Result WHITE BLOOD CELLS PRESENT NO ORGANISMS SEEN ON CONCENTRATED SMEAR Culture NO GROWTH 2 DAYS Images from the original note were not included. [facility] Neurology General Neurology Consultation Progress Note Consult Neurology Service: [phone] Chief Complaint and Reason for Consultation: Decline [...] with complete remission. He follows up with [facility] Neurology and had underwent a [...] decline, Patient had presented to ED in [place] June 18 after waking up not oriented and delusional. Then June 25 he woke up again not knowing where he is delusional thinking his sister was an intruder so he was brought to [facility] and discharged later that evening. He was seen by child protective services social worker referred to a mental health center and per family his mental status had worsened and they felt he was being overmedicated with Benadryl. 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 The impression there was no infectious or metabolic etiology so patient was transferred to [facility] for higher level of care. Interval [...] markers confirmed early onset Alzheimer's established in [facility] September 2022 (Dr. Lemuel Guerra) but reportedly functional at home per family, in addition to hyperlipidemia, GERD, T2DM. Patient was transferred found [facility] for higher level of care and workup of sharp decline in cognition since May 2024. Patient had presented multiple times to the ED and admitted [facility] for delusional thinking/hallucinations/agitatio n. Impression: Acute [...] arise. Arnulfo Haley MD PGY2 Neurology [facility] Seen and staffed with: Dr. Nails This patient is being followed by the Neurology Resident service. Contact attending directly during these hours: Tuesday to 7:30-8:30 A.M. to Tuesday 12-1:00 p.m. Primary Neurology service: [phone] Consult neurology service: [phone] Resident Stroke Service: [phone] If the patient belongs to the Stroke [...] any question or concerns. Zach Nails MD. Warrant Clerk of Neurology [facility] Images from the original note were not included. [facility] 07/11/2024 Patient Name: Estella Jeffery : 1965 [...] discharge, currently working on disposition. Refused from [address] [place] [address] DVT prophylaxis: Heparin Code Status: Full Plan [...] COMPARISON: July 03, 2024 brain MRI from [facility] Procedure: Multiplanar, multisequence imaging performed through [...] and cranio-cervical junction. Flow voids documented in [place] and dural venous sinuses. No [...] Spinal Fluid culture includes gram stain, CSF [[id number]] Collected: 07/10/24 0939 Specimen: Cerebrospinal Fluid Updated: 07/11/24 0718 Gram Stain Result WHITE BLOOD CELLS PRESENT NO ORGANISMS SEEN ON CONCENTRATED SMEAR Culture NO GROWTH <24 HRS Images from the original note were not included. [facility] Neurology General Neurology Consultation Progress Note Consult Neurology Service: [phone] Chief Complaint and Reason for Consultation: Decline [...] with complete remission. He follows up with [facility] Neurology and had underwent a [...] decline, Patient had presented to ED in [place] June 18 after waking up not oriented and delusional. Then June 25 he woke up again not knowing where he is delusional thinking his sister was an intruder so he was brought to [facility] and discharged later that evening. He was seen by child protective services social worker referred to a mental health center and per family his mental status had worsened and they felt he was being overmedicated with Benadryl. 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 The impression there was no infectious or metabolic etiology so patient was transferred to [facility] for higher level of care. Interval [...] markers confirmed early onset Alzheimer's established in [facility] September 2022 (Dr. Lemuel Guerra) but reportedly functional at home per family, in addition to hyperlipidemia, GERD, T2DM. Patient was transferred found [facility] for higher level of care and workup of sharp decline in cognition since May 2024. Patient had presented multiple times to the ED and admitted [facility] for delusional thinking/hallucinations/agitatio n. Impression: Acute [...] follow. Arnulfo Haley MD PGY2 Neurology [facility] Seen and staffed with: Dr. Nails This patient is being followed by the Neurology Resident service. Contact attending directly during these hours: Tuesday to 7:30-8:30 A.M. to Tuesday 12-1:00 p.m. Primary Neurology service: [phone] Consult neurology service: [phone] Resident Stroke Service: [phone] If the patient belongs to the Stroke [...] evaluation and appropriate disposition. Zach Nails MD. Warrant Clerk of Neurology [facility] Images from the original note were not included. [facility] 07/10/2024 Patient Name: Estella Jeffery : 1965 Problem List: Principal Problem: Dementia with behavioral disturbance ([facility]) Active Problems: Altered mental status Assessment [...] COMPARISON: July 03, 2024 brain MRI from [facility] Procedure: Multiplanar, multisequence imaging performed through [...] and cranio-cervical junction. Flow voids documented in [place] and dural venous sinuses. No [...] Spinal Fluid culture includes gram stain, CSF [[id number]] Resulted: 07/10/24 1055 Updated: 07/10/24 1148 Images from the original note were not included. [facility] 07/09/2024 Patient Name: Estella Jeffery : 1965 Problem List: Principal Problem: Dementia with behavioral disturbance ([facility]) Active Problems: Altered mental status Assessment [...] from the original note were not included. [facility] Neurology General Neurology Consultation Progress Note Consult Neurology Service: [phone] Chief Complaint and Reason for Consultation: Decline [...] with complete remission. He follows up with [facility] Neurology and had underwent a [...] decline, Patient had presented to ED in [place] June 18 after waking up not oriented and delusional. Then June 25 he woke up again not knowing where he is delusional thinking his sister was an intruder so he was brought to [facility] and discharged later that evening. He was seen by child protective services social worker referred to a mental health center and per family his mental status had worsened and they felt he was being overmedicated with Benadryl. 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 The impression there was no infectious or metabolic etiology so patient was transferred to [facility] for higher level of care. Interval [...] markers confirmed early onset Alzheimer's established in [facility] September 2022 (Dr. Lemuel Guerra) but reportedly functional at home per family, in addition to hyperlipidemia, GERD, T2DM. Patient was transferred found [facility] for higher level of care and workup of sharp decline in cognition since May 2024. Patient had presented multiple times to the ED and admitted [facility] for delusional thinking/hallucinations/agitatio n. Impression: Acute [...] follow. Arnulfo Haley MD PGY2 Neurology [facility] Seen and staffed with: Dr. Nails This patient is being followed by the Neurology Resident service. Contact attending directly during these hours: Tuesday to 7:30-8:30 A.M. to Tuesday 12-1:00 p.m. Primary Neurology service: [phone] Consult neurology service: [phone] Resident Stroke Service: [phone] If the patient belongs to the Stroke [...] of violent/anger outburst/paranoid behavior. Zach Nails MD. Warrant Clerk of Neurology [facility] NUTRITION ADULT INITIAL EVALUATION NUTRITION [...] 11/24/2019 Performed by Skyler Bowen MD at [facility] 3YEARS AGO COLOSTOMY CLOSURE Social/ Cognitive/ Economic: Pt in an agitated state and screaming from room. Unable to see pt as RN reports he has been in a very agitated state at the time of RD visit. Brief Clinical Summary: Pt transferred and direct admitted to [facility] as a transfer from [facility] for neurological evaluation 2/2 aggressive behavior [...] (H) 05/10/2016 Lab Results Component Value Date [id number] 526 07/08/2024 Lab Results Component Value Date [...] Skin (per nursing flow sheets): Skin Color: [place]; Pale (07/08/24 08) Skin Temp: Warm; Dry [...] Type: NPO NPO Except: Except medications 07/08/24 8147 Diet Intakes: Percent Meals Eaten (%): 100 [...] Weight: Unknown as no wt on file. [place] Body Weight: 61.8 kg Percent [place] Body Weight: 136 Weight Changes: No wt's on file to assess Body Mass Index: 30.7 kg^m2 BMI Category: Obese (> or = 30.0) Note: Calculations based on previous wt and ht on file from 06/24 07/22 no anthropometrics on file for this admission. Comparative Standards: Estimated Energy Needs: 3216-1931 kcals daily. Method and weight used: 25-32 kcal/kg IBW Estimated Protein Needs: 74-124 grams daily. Method and weight used: 1.2-2g protein/kg IBW Estimated Fluid Needs: 7103-2983 ml daily. Method weight used: 1 ml/kcal Comments: floor needs Malnutrition Status: Malnutrition Present: No NUTRITION DIAGNOSIS: Intake Diagnosis: Predicted suboptimal nutrient intake (NI 5.11.1) related to self monitoring deficit as evidenced by nursing screen reporting pt eating <50% of normal intake x 2 weeks. NUTRITION INTERVENTIONS: Meals and Snacks: Continue per METALLURGY TEACHER and medical team recommendations Supplements: Will add [...] from the original note were not included. [facility] Hospitalist [facility] 07/08/2024 Patient Name: Estella Jeffery : 1965 [...] from the original note were not included. [facility] Neurology General Neurology Consultation Progress Note Consult Neurology Service: [phone] Chief Complaint and Reason for Consultation: Decline [...] with complete remission. He follows up with [facility] Neurology and had underwent a [...] decline, Patient had presented to ED in [place] June 18 after waking up not oriented and delusional. Then June 25 he woke up again not knowing where he is delusional thinking his sister was an intruder so he was brought to [facility] and discharged later that evening. He was seen by child protective services social worker referred to a mental health center and per family his mental status had worsened and they felt he was being overmedicated with Benadryl. 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 The impression there was no infectious or metabolic etiology so patient was transferred to [facility] for higher level of care. Interval [...] markers confirmed early onset Alzheimer's established in [facility] September 2022 (Dr. Lemuel Guerra) but reportedly functional at home per family, in addition to hyperlipidemia, GERD, T2DM. Patient was transferred found [facility] for higher level of care and workup of sharp decline in cognition since May 2024. Patient had presented multiple times to the ED and admitted [facility] for delusional thinking/hallucinations/agitatio n. Impression: Acute [...] follow. Cecile Henry MD PGY-3 Neurology Resident [facility] Seen and staffed with: Dr. Nails This patient is being followed by the Neurology Resident service. Contact attending directly during these hours: Tuesday to 7:30-8:30 A.M. to Tuesday 12-1:00 p.m. Primary Neurology service: [phone] Consult neurology service: [phone] Resident Stroke Service: [phone] If the patient belongs to the Stroke [...] of violent/anger outburst/paranoid behavior. Zach Nails MD. Warrant Clerk of Neurology [facility] Images from the original note were not included. [facility] Neurology General Neurology Consultation Progress Note Consult Neurology Service: [phone] Chief Complaint and Reason for Consultation: Decline [...] with complete remission. He follows up with [facility] Neurology and had underwent a heavy metal screen, [facility] analysis, MRI 2021 showing severe [...] decline, Patient had presented to ED in [place] June 18 after waking up not oriented and delusional. Then June 25 he woke up again not knowing where he is delusional thinking his sister was an intruder so he was brought to [facility] and discharged later that evening. He was seen by child protective services social worker referred to a mental health center and per family his mental status had worsened and they felt he was being overmedicated with Benadryl. 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 The impression there was no infectious or metabolic etiology so patient was transferred to [facility] for higher level of care. Interval [...] markers confirmed early onset Alzheimer's established in [facility] October 2022 in addition to hyperlipidemia, GERD, dm 2. Patient was transferred found [facility] for higher level of care and workup of sharp decline in cognition since May 2024. Patient had presented multiple times to the ED and admitted [facility] for delusional thinking/hallucinations/agitatio n. Impression: Acute [...] follow. Arnulfo Haley MD PGY2 Neurology [facility] Seen and staffed with: Dr. Nails This patient is being followed by the Neurology Resident service. Contact attending directly during these hours: Tuesday to 7:30-8:30 A.M. to Tuesday 12-1:00 p.m. Primary Neurology service: [phone] Consult neurology service: [phone] Resident Stroke Service: [phone] If the patient belongs to the Stroke [...] type), obtain routine EEG. Zach Nails MD. Warrant Clerk of Neurology [facility] [employer] Images from the original note were not included. [facility] 07/07/[facility]24 Patient Name: Estella Jeffery : 1965 Problem List: Principal Problem: Dementia with behavioral disturbance ([facility]) Active Problems: Altered mental status Assessment [...] last 168 hours. documented in this encounter [facility] Plan of care note Problem: Safety [...] at the bedside 7. Instruct patient/ patient artists' booking representative about use of safety devices 8. Include patient/ patient artists' booking representative in decisions related to safety Outcome: Progressing Note: Evaluation of progress towards goal: pt remains free from injury Problem: Knowledge Deficit Goal: Patient/patient artists' booking representative demonstrates understanding of disease process, treatment [...] =/> 25 or indicated by [facility] Rehab Assessment Goal: Patient should be free from fall Description: Interventions: 1. Rey[place] to environment 2. Hourly rounds addressing the [...] non-skid footwear 11. Teach patient and patient artists' booking representative to maintain environment for safety and [...] (cane, walker) within reach 19. Request patient artists' booking representative bring adaptive equipment/mobility aids from home or obtain and provide as needed 20. Consult pharmacy regarding effects of med's affecting mobility, cognition, and alternatives 21. Obtain physician order for PT if risk factors associated with mobility are present 22. Obtain physician order for OT as appropriate 23. Utilize diversional activities 24. Educate patient and patient artists' booking representative how to maintain a safe environment during visitation times (notify nurse prior to leaving bedside) 25. Consider appropriateness of medical or non-medical chemist 26. Set up voiding schedule as appropriate (every 2 hours) Outcome: Progressing Note: Evaluation of progress towards goal: fall precautions in place and pt remains free from falls [facility] [employer] 07-20-2024 Progress note Formatting of t his note might be different from the original. DISCHARGE PLANNING NOTE Patient's family has appealed his discharge & we have received notification from [facility] that a DC appeal has been called in. The chart, DND form, & IMM have been successfully uploaded by story writer to the [employer] and successfully received by [facility]. [facility] will notify the of the patient of the appeal determination. [employer] Supervisor phone called patient's & read the DND notice to her. Paper copy of the DND notice to be delivered to the patient's bedside. [employer] Supervisor informed to anticipate phone call from [employer] re: determination of DC Appeal & encouraged wifeto answer the phone when [employer] calls. expressed verbal understanding of DND and the DC appeal process. - NELLI GLEZ [facility] 07/20/24 5:13 PM [facility] 07-20-2024 Consult note Associated Order (s): IP CONSULT TO NEUROSURGERY Images from the original note were not included. [facility] [address] [place] [address], [address] [place] [address] * NEUROSURGERY CONSULT NOTE DATE:07/20/2024 PATIENT'S NAME: [...] 150 mg, oral, Nightly, 150 mg at 07/19/245 AND QUEtiapine (SEROquel) tablet 50 mg, 50 [...] Bowen MD at [facility] COLONOSCOPY [place] 3YEARS AGO COLOSTOMY CLOSURE PUNCTURE LUMBAR N/A 07/10/2024 Performed by Zach Nails MD at [facility] FAMILY HISTORY Family History Problem Relation [...] care per primary team FRAN Burton Neurosurgery [facility] Please contact via [employer]OB[employer]LEAR[employer] first then can utilize Patient touch/VoceraEdge if needed- 07/20/24 3:45 PM To find out which ASHLEE is on for the day please go to [employer] and use log in [employer] and search for PTH Neurosurgery FRAN Charles 07/20/24 2266 [facility] 07-20-2024 Consult note Associated Order (s): IP CONSULT TO NEUROSURGERY Images from the original note were not included. [facility] [address] [place] [address], [address] [place] [address] * NEUROSURGERY CONSULT NOTE DATE:07/20/2024 PATIENT'S NAME: [...] Bowen MD at [facility] COLONOSCOPY JANICE 3YEARS AGO COLOSTOMY CLOSURE PUNCTURE LUMBAR N/A 07/10/2024 Performed by Zach Nails MD at [facility] FAMILY HISTORY Family History Problem Relation [...] care per primary team FRAN Burton Neurosurgery [facility] [employer] [facility] Please contact via [employer] first then can utilize Patient touch/VoceraEdge if needed- 07/20/24 3:45 PM To find out which ASHLEE is on for the day please go to [employer] and use log in [employer] and search for PTH Neurosurgery FRAN Charles 07/20/24 1632 Images from the original note were not included. [facility] Neurology General Neurology Consult Note Primary Neurology service: [phone] Patient - Estella Jeffery Age - 59 y[facility]. [facility] 1965 [id number] Date of Admission - 07/06/2024 7:28 AM [...] and symmetric in all four extremities. Coordination Uajyre-uc-irba, rapid alternating movements and fepu-dm-cqaj normal bilaterally without dysmetria. Gait Deferred. Psychiatric [...] biomarkers confirmed early onset diagnosis established in [facility] September 2022 but reportedly functional at home per family in addition to hyperlipidemia, GERD, dm 2. Patient was transferred from [facility] for higher level of care and [...] Neurology standpoint Elana Valerio MD PGY-1 Neurology [facility] 07/19/24 1:[address] Sofia This patient is being followed by the Neurology Resident service. Contact attending directly during these hours: Tuesday to 7:30-8:30 A.M. to Tuesday 12-1:00 p.m. Primary Neurology service: [phone] Consult neurology service: [phone] Resident Stroke Service: [phone] If the patient belongs to the Stroke [...] for: EAG Lab Results Component Value Date [id number] 07/08/2024 Neurological work up: CT head CTA head and neck MRI brain 05/07/2022 hippocampal volume loss. White matter changes. 2 D echo Assessment and recommendations Delirium superimposed on baseline cognitive impairment Presyncope likely neurocardiogenic Hypotension Early-onset Alzheimer disease confirmed with bio markers at [facility] Upon examination patient is awake, [...] Referring Physician: Nichol Heath MD PCP: JAE LOEPZ MD Chief Compliant: Principal Problem: Dementia with behavioral disturbance ([facility]) Active Problems: Altered mental status Status post colostomy, follow-up exam ([facility]) Reason for Consultation: Rehabilitation Candidacy and Rehab Welfare Project Manager Physicians/Services Consulting Providers Provider Service Specialty Mina [...] reflux disease) High cholesterol Perforated sigmoid colon ([facility]) PSH Past Surgical History: Procedure Laterality Date ARM EXPLORATION WITH REPAIR LACERATED ULNAR ARTERY Left 11/24/2019 Performed by Skyler Bowen MD at [facility] COLONOSCOPY [place] 3YEARS AGO COLOSTOMY CLOSURE Allergies Allergies Allergen [...] Time: 07/10/24 9:[address] [facility] in Laboratory Medicine [address] [place] [address] Cytology Consultation Patient Name:ESTELLA JEFFERY:1965 (Age: 58)Gender:MTaken:07/10/2024Report ed:07/11/2024 16:49Physician(s):Arnulfo Haley M.D. ([phone])Copy To:Quinton Harrell M.D. Rec. #:[id number]: #[id number] Final Cytologic Diagnosis Cerebrospinal fluid: No malignant cells identified. 07/11/2024 Interpretation performed at [facility], [address] [place] [address], License number: [id number].Electronically Signed Out By Derick Lorenz MD Additional Report(s): Flow Cytometry-Surg/BM/NG Date Reported: # Immunophenotyping antibodies tested: CD3, CD4, CD5, CD7, CD8, CD19, CD20, CD45, Samoset, and Lambda. Immunophenotyping Comment: Immunophenotyping has been used in this diagnostic evaluation. This test was developed and its performance characteristics determined by the [facility] Department. It has not been [...] MD Clinical History Dementia with behavioral disturbance ([facility]) F03.918, acute change in personality Gross Description Received was 2ml of clear colorless fluid unfixed labeled as Jeffery, CSF . Also received is one cytospin slide from Hematology. Source of Specimen Cerebrospinal fluid Non SHOT HOLE SHOOTER ThinPrep, Cytospin Slide Fee Code(s): 1; 11387 VDRL, Spinal Fluid Collection Time: 07/10/24 9:39 [...] Assessment/Plan Principal Problem: Dementia with behavioral disturbance ([facility]) Active Problems: Altered mental status Status post colostomy, follow-up exam ([facility]) Acute mental status change [...] PRESENT ILLNESS: The patient is a 58-year-old Portuguese male treatment at the [facility] for the patient has a substantial history of dyslipidemia, sleep apnea, type 2 diabetes mellitus, recent diagnosed history of early-onset Alzheimer's dementia, an epileptic disorder in remission, as well as a recent admission to [facility] for altered mental status. An MRI [...] discharged to a memory care unit or retirement that is well-versed in the treatment of [...] Skyler Bowen MD at [facility] 3YEARS AGO COLOSTOMY CLOSURE Medications Prior [...] to a memory care unit or a retirement that is well-versed in management of memory [...] from the original note were not included. [facility] Neurology General Neurology Consult Note Primary Neurology service: [phone] Chief Complaint: HPI: Estella Jeffery is a [...] with complete remission. He follows up with [facility] Neurology and had underwent a [...] decline, Patient had presented to ED in [place] June 18 after waking up not oriented and delusional. Then June 25 he woke up again not knowing where he is delusional thinking his sister was an intruder so he was brought to [facility] and discharged later that evening. He was seen by child protective services social worker referred to a mental health center and per family his mental status had worsened and they felt he was being overmedicated with Benadryl. 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 The impression there was no infectious or metabolic etiology so patient was transferred to [facility] for higher level of care. On my evaluation patient was restless fidgeting and did not allow me to speak him or enter the room, he would tell me his family members names what refused to tell me his name asked me to leave the room. I could not do any assessment Presidio test or neurological exam. Per family patient [...] markers confirmed early onset Alzheimer's established in [facility] October 2022 in addition to hyperlipidemia, GERD, dm 2. Patient was transferred found [facility] for higher level of care and workup of sharp decline in cognition since May 2024. Patient had presented multiple times to the ED and admitted [facility] for delusional thinking/hallucinations/agitatio n. On evaluation [...] once reconciled. Elana Valerio MD PGY-1 Neurology [facility] 07/06/24 9:[address] Sofia This patient is being followed by the Neurology Resident service. Contact attending directly during these hours: Tuesday to 7:30-8:30 A.M. to Tuesday 12-1:00 p.m. Primary Neurology service: [phone] Consult neurology service: [phone] Resident Stroke Service: [phone] If the patient belongs to the Stroke ASHLEE service please contact the Stroke ASHLEE directly. Cosigned by Kelley Sofia MD at 07/06/2024 11:32 PM EST Associated attestation - Kelley Sofia MD - 07/06/2024 11:32 PM EST Kelley Sofia MD Neurology documented in this encounter [facility] 07-20-2024 Hospital Discharge instructions Luiz Shipley MD - 07/20/2024 3:28 PM EST 07/30 at 12:40 Hospital follow up with Fidelina Fisher CNP [facility] [place] [address] [place] [address] Please follow up with Neurosurgery [...] Hospital follow up with Fidelina Fisher CNP [facility] [place] [address] [place] [address] Pt. should bring the following [...] (including Alzheimer disease) (Lao)documented in this encounter [facility] [employer] [facility] 07-20-2024 Plan of care note Problem: [...] at the bedside 7. Instruct patient/ patient artists' booking representative about use of safety devices 8. Include patient/ patient artists' booking representative in decisions related to safety Outcome: Progressing Note: Evaluation of progress towards goal: Patient remains injury free at this time. Problem: Knowledge Deficit Goal: Patient/patient artists' booking representative demonstrates understanding of disease process, treatment [...] =/> 25 or indicated by [facility] Rehab Assessment Goal: Patient should be free from fall Description: Interventions: 1. Rey[place] to environment 2. Hourly rounds addressing the [...] non-skid footwear 11. Teach patient and patient artists' booking representative to maintain environment for safety and [...] (cane, walker) within reach 19. Request patient artists' booking representative bring adaptive equipment/mobility aids from home or obtain and provide as needed 20. Consult pharmacy regarding effects of med's affecting mobility, cognition, and alternatives 21. Obtain physician order for PT if risk factors associated with mobility are present 22. Obtain physician order for OT as appropriate 23. Utilize diversional activities 24. Educate patient and patient artists' booking representative how to maintain a safe environment during visitation times (notify nurse prior to leaving bedside) 25. Consider appropriateness of medical or non-medical chemist 26. Set up voiding schedule as appropriate (every 2 hours) Outcome: Progressing Note: Evaluation of progress towards goal: Patient remains free from falls at this time. [facility] 07-20-2024 Telephone encounter Note Spoke to , Kari. Pt is currently at [facility]. Pt is being denied an admit to rehab facility. I am unable to view notes from that hospital. Suggestion given to [facility] as [facility] does not have a TBI clinic. Family will have to work with staff at [facility]. Verbalized understanding. [facility] 07-20-2024 Miscellaneous Notes Spoke to , Kari. Pt is currently at [facility]. Pt is being denied an admit to rehab facility. I am unable to view notes from that hospital. Suggestion given to [facility] as [facility] does not have a TBI clinic. Family will have to work with staff at [facility]. Verbalized understanding. Spoke with Dr Harmon (sp?) from [facility] regarding patient. Family is requesting transfer to a [facility] TBI center, inpatient. I advised that Dr Guerra cannot assist in this matter. Patient mailbox is full unable to leave message Patient returned your call and can be reached at: Call patient at: on cell [phone] (home) [phone] (cell) documented in this encounter [facility] 07-20-2024 Progress note Formatting of t his note might be different from the original. DISCHARGE PLANNING NOTE 07/30 at 12:40 Hospital follow up with Fidelina Fisher CNP [facility] [place] [address] [place], [place] [id number] [facility] 07-20-2024 Hospital course Narrative Images from the original note were not included. 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 Also contacted [facility], per family request. Spoke with [...] outpatient workup. I also spoke with Neurosurgery MAINTENANCE WORKER Victorina Marcelino, and have made arrangements for [...] Follow up: Jae Lopez MD [address] [facility] [address] Schedule an appointment as soon as possible for a visit in 1 week(s) Jessica Johnson MD [address] [facility], [address] [facility] [phone] Schedule an appointment as soon as possible for a visit in 2 week(s) 07/30 at 12:40 Hospital follow up with Fidelina Fisher CNP [facility] [place] [address] [place] [address] Please follow up with Neurosurgery [...] PM documented in this encounter [facility] 07-20-2024 Progress note Formatting of t his note might be different from the original. Confirmed with Taylor at [facility] she did receive the updated notes (neuro, PMR, PT/OT) that were faxed and uploaded to [facility]. She is almost finishing writing it up for physician review and will call us with their determination by 10am. 9:31 am Received call from Taylor at [facility] IPR-she reviewed updated notes with medical office worker and they remain unable to accept after our 3rd request for review. She said he is doing too well functionally, does not need OT/PT services. She said after discussion with medical office worker their facility would be of no benefit to the patient. This information was communicated to interdisciplinary team via epic chat [facility] [facility] 07-20-2024 Telephone encounter Note Received transfer [...] our network. Referring MD will confirm with case supervisor that referrals were sent to all 3. If the patient is discharged home or to SNF, we can potentially expedite an appointment with our PMR colleagues/TBI multidisciplinary clinic. I will alert Drs. Aguilar and Earl to the referral. Janice Mcdermott MD [facility] Work Phone: 07-20-2024 Miscellaneous Notes [...] our network. Referring MD will confirm with case supervisor that referrals were sent to all 3. If the patient is discharged home or to SNF, we can potentially expedite an appointment with our PMR colleagues/TBI multidisciplinary clinic. I will alert Drs. Aguilar and Earl to the referral. Janice Mcdermott MD documented in this encounter [facility] 07-20-2024 Progress note Formatting of t his note might be different from the original. DISCHARGE PLANNING NOTE Sent face sheet to [facility] for hospital transfer via secure fax to # [phone] [employer] 07-20-2024 Progress note Formatting of t his note might be different from the original. DISCHARGE PLANNING NOTE Discharge plan- awaiting responses from [facility] if they can accept. Tasked [facility] to send neuro note from yesterday to them again. Tasked [facility] to fax his face sheet to [facility] per physician request since she is calling them about a hospital to hospital transfer per families request. Leadership team aware. - NANCY PARRISH 07/20/24 8:19 AM Discussed patient and d/c planning with leadership team. Everyone in agreement with d/c today since per physician [facility] can not accept as a hospital transfer and [facility] IPR has denied as well. Physician and this story writer spoke with patient, and sister that is present re: d/c today and that patient will be going home with outpatient ST and an appointment has been made for a TBI clinic for follow up. Provided IMM to and explained. Leadership aware. - NANCY PARRISH 07/20/24 11:29 AM [facility] [employer] [facility] 07-20-2024 Progress note Formatting of t his note might be different from the original. DISCHARGE PLANNING NOTE Neuro Note sent to [facility] (P# [phone] ; F# [phone]) in careport and via [employer]. [facility] 07-20-2024 Plan of care note Problem: Safety [...] at the bedside 7. Instruct patient/ patient artists' booking representative about use of safety devices 8. Include patient/ patient artists' booking representative in decisions related to safety Outcome: Progressing Note: Evaluation of progress towards goal: Pt remains free from injury and significant other at bedside Problem: Knowledge Deficit Goal: Patient/patient artists' booking representative demonstrates understanding of disease process, treatment [...] =/> 25 or indicated by [facility] Assessment Goal: Patient should be free from fall Description: Interventions: 1. [place] to environment 2. Hourly rounds addressing the [...] non-skid footwear 11. Teach patient and patient artists' booking representative to maintain environment for safety and [...] (cane, walker) within reach 19. Request patient artists' booking representative bring adaptive equipment/mobility aids from home or obtain and provide as needed 20. Consult pharmacy regarding effects of med's affecting mobility, cognition, and alternatives 21. Obtain physician order for PT if risk factors associated with mobility are present 22. Obtain physician order for OT as appropriate 23. Utilize diversional activities 24. Educate patient and patient artists' booking representative how to maintain a safe environment during visitation times (notify nurse prior to leaving bedside) 25. Consider appropriateness of medical or non-medical chemist 26. Set up voiding schedule as appropriate (every 2 hours) Outcome: Progressing Note: Evaluation of progress towards goal: pt remains free from falls and fall precautions are in place [facility] 07-19-2024 Progress note Formatting of t his note might be different from the original. DISCHARGE PLANNING NOTE Updates to [facility] (P# [phone] ; F# [phone]) [facility] [employer] [facility] 07-19-2024 Progress note Formatting of t [...] therapy per MARCI Rothman Equipment: gait belt Telemetry/Cleaning Professional: No Oxygen Used: room air Other: fall [...] Date/Time User Outcome 07/17/24 1439 Yoanna Han-Mahoney, CASTING PLUG ASSEMBLER/L Progressing Problem: Standing Balance Dates: Start: 07/13/24 Disciplines: OT Goal: Improve balance to normal Dates: Start: 07/13/24 Expected End: 08/13/24 Description: Normal dynamic balance. Disciplines: OT Outcomes Date/Time User Outcome 07/19/24 1445 Yoanna Han-Mahnoey, KWADWO/L Progressing 07/17/24 1439 Yoanna Han-Mahoney, KWADWO/L [...] Date/Time User Outcome 07/17/24 1439 Yoanna Han-Mahoney, CASTING PLUG ASSEMBLER/L Progressing Problem: Transfers Dates: Start: 07/13/24 Disciplines: OT Goal: Patient will perform transfers Independently Dates: Start: 07/13/24 Expected End: 08/13/24 Description: Goal Description: Disciplines: OT Outcomes Date/Time User Outcome 07/19/24 1445 Yoanna Han-Mahoney, CASTING PLUG ASSEMBLER/L Progressing 07/17/24 1439 Yoanna Han-Mahoney, KWADWO/L Progressing Occupational Therapy Care Plan (Resolved) There are no resolved problems. Principal Problem: Dementia with behavioral disturbance ([facility]) Active Problems: Altered mental status Status post colostomy, follow-up exam ([facility]) Cosigned by MAYNOR Dillon/Jerome at 07/19/2024 3:13 PM EST Associated attestation - Veronica Gorman OTR/Jerome - 07/19/2024 3:13 PM EST I have reviewed and agree with this note and education documentation for this visit. [facility] [employer] [facility] 07-19-2024 Progress note Formatting of t [...] therapy per MARCI Rothman Equipment: gait belt Telemetry/Cleaning Professional: Yes Oxygen Used: room air Other: fall [...] Goal: Patient will perform stairs/curb with Modified [place] Dates: Start: 07/13/24 Expected End: 07/27/24 Description: [...] problems. Principal Problem: Dementia with behavioral disturbance ([facility]) Active Problems: Altered mental status Status post colostomy, follow-up exam ([facility]) Cosigned by Jose Gorman, PT at 07/19/2024 3:14 PM EST Associated attestation - Jose Gorman, PT - 07/19/2024 3:14 PM EST I have reviewed and agree with this note and education documentation for this visit. [facility] 07-19-2024 Plan of care note Problem: Safety [...] at the bedside 7. Instruct patient/ patient artists' booking representative about use of safety devices 8. Include patient/ patient artists' booking representative in decisions related to safety Outcome: Progressing Note: Evaluation of progress towards goal: Patient remains injury free at this time. Problem: Knowledge Deficit Goal: Patient/patient artists' booking representative demonstrates understanding of disease process, treatment [...] =/> 25 or indicated by [facility] Assessment Goal: Patient should be free from fall Description: Interventions: 1. [place] to environment 2. Hourly rounds addressing the [...] non-skid footwear 11. Teach patient and patient artists' booking representative to maintain environment for safety and [...] (cane, walker) within reach 19. Request patient artists' booking representative bring adaptive equipment/mobility aids from home or obtain and provide as needed 20. Consult pharmacy regarding effects of med's affecting mobility, cognition, and alternatives 21. Obtain physician order for PT if risk factors associated with mobility are present 22. Obtain physician order for OT as appropriate 23. Utilize diversional activities 24. Educate patient and patient artists' booking representative how to maintain a safe environment during visitation times (notify nurse prior to leaving bedside) 25. Consider appropriateness of medical or non-medical chemist 26. Set up voiding schedule as appropriate (every 2 hours) Outcome: Progressing Note: Evaluation of progress towards goal: Patient remains free from falls. [employer] 07-19-2024 Consult note Formatting of th is note is different from the original. Images from the original note were not included. [facility] Neurology General Neurology Consult Note Primary Neurology service: [phone] Patient - Estella Jeffery Age - 59 [...] with complete remission. He follows up with [facility] Neurology and had underwent a [...] and symmetric in all four extremities. Coordination Rczree-zz-waii, rapid alternating movements and zozf-sq-ruld normal bilaterally without dysmetria. Gait Deferred. Psychiatric [...] biomarkers confirmed early onset diagnosis established in [facility] September 2022 but reportedly functional at home per family in addition to hyperlipidemia, GERD, dm 2. Patient was transferred from [facility] for higher level of care and [...] Neurology standpoint Elana Valerio MD PGY-1 Neurology [facility] 07/19/24 1:[address] Sofia This patient is being followed by the Neurology Resident service. Contact attending directly during these hours: Tuesday to 7:30-8:30 A.M. to Tuesday 12-1:00 p.m. Primary Neurology service: [phone] Consult neurology service: [phone] Resident Stroke Service: [phone] If the patient belongs to the Stroke [...] for: EAG Lab Results Component Value Date [id number] 07/08/2024 Neurological work up: CT head CTA head and neck MRI brain 05/07/2022 hippocampal volume loss. White matter changes. 2 D echo Assessment and recommendations Delirium superimposed on baseline cognitive impairment Presyncope likely neurocardiogenic Hypotension Early-onset Alzheimer disease confirmed with bio markers at [facility] Upon examination patient is awake, [...] Note Spoke with Dr Harmon (sp?) from [facility] regarding patient. Family is requesting transfer to a [facility] TBI center, inpatient. I advised that Dr Guerra cannot assist in this matter. [facility] 07-19-2024 Progress note Formatting of t his note might be different from the original. DISCHARGE PLANNING NOTE Updates to [facility] (P# ; F# ) [facility] 07-19-2024 Progress note Formatting of t his note is different from the original. Images from the original note were not included. DISCHARGE PLANNING NOTE Discussed patient today during rounds. Plan-TBI center VS IPR. This story writer and floor Mgr spoke with patient's over the phone and his sister in his room re: d/c planning. Updated them that [facility] has denied. Offered to send referral to [facility] to see if they can accept as [...] - NANCY PARRISH 07/19/24 10:42 AM This story writer and metal flooring installer and Dr. Shipley spoke with patient, and sister re: d/c planning. They are aware that [facility] is still reviewing referral. Asked if SNF referrals can be sent and they declined stating they would like the physician to see if she can get him transferred to [facility] as a physician to physician transfer. Updated Leadership. If neither of these hospitals can accept then patient to d/c home with since SNF has been declined. - NANCY PARRISH 07/19/24 12:14 PM This story writer and floor mgr spoke with family to let them know [facility] has denied patient and that they recommend SNF for him. Tasked [facility] to send neuro note from today to [facility] to see if they can accept him with this updated note. Leadership aware. - NANCY PARRISH 07/19/24 3:21 PM [employer] 07-19-2024 Plan of care note Problem: Safety [...] at the bedside 7. Instruct patient/ patient artists' booking representative about use of safety devices 8. Include patient/ patient artists' booking representative in decisions related to safety Outcome: Progressing Note: Evaluation of progress towards goal: Problem: Knowledge Deficit Goal: Patient/patient artists' booking representative demonstrates understanding of disease process, treatment [...] Progressing Note: Evaluation of progress towards goal: [facility] 07-19-2024 Plan of care note Problem: [...] at the bedside 7. Instruct patient/ patient artists' booking representative about use of safety devices 8. Include patient/ patient artists' booking representative in decisions related to safety Outcome: Progressing Note: Evaluation of progress towards goal: Problem: Knowledge Deficit Goal: Patient/patient artists' booking representative demonstrates understanding of disease process, treatment [...] Progressing Note: Evaluation of progress towards goal: [facility] 07-18-2024 Plan of care note Problem: [...] at the bedside 7. Instruct patient/ patient artists' booking representative about use of safety devices 8. Include patient/ patient artists' booking representative in decisions related to safety Outcome: Progressing Note: Evaluation of progress towards goal: patient is injury free at this time. Problem: Knowledge Deficit Goal: Patient/patient artists' booking representative demonstrates understanding of disease process, treatment [...] =/> 25 or indicated by [facility] Assessment Goal: Patient should be free from fall Description: Interventions: 1. [place] to environment 2. Hourly rounds addressing the [...] non-skid footwear 11. Teach patient and patient artists' booking representative to maintain environment for safety and [...] (cane, walker) within reach 19. Request patient artists' booking representative bring adaptive equipment/mobility aids from home or obtain and provide as needed 20. Consult pharmacy regarding effects of med's affecting mobility, cognition, and alternatives 21. Obtain physician order for PT if risk factors associated with mobility are present 22. Obtain physician order for OT as appropriate 23. Utilize diversional activities 24. Educate patient and patient artists' booking representative how to maintain a safe environment during visitation times (notify nurse prior to leaving bedside) 25. Consider appropriateness of medical or non-medical chemist 26. Set up voiding schedule as appropriate (every 2 hours) Outcome: Progressing Note: Evaluation of progress towards goal: Patient is free from falls at this time. [employer] [facility] 07-18-2024 Progress note Formatting of t his note might be different from the original. DISCHARGE PLANNING NOTE Referral sent to [facility] (P# [phone] ; F# [phone]) [facility] 07-18-2024 Telephone encounter Note Patient mailbox is full unable to leave message [facility] 07-18-2024 Progress note Formatting of t his note is different from the original. Images from the original note were not included. DISCHARGE PLANNING NOTE Discussed patient today during rounds. Patient's requested updates be sent to [facility]. Tasked [facility] to send. Leadership team aware as well as floor nurse. Barriers- acceptance, auth. Services Requested: Services Requested Patient expects to be discharged to:: home vs snf Patient Goals: Goals: Goals (pt-stated) Evaluation of progress towards goal: TBD-pending PT/OT eval - NANCY PARRISH 07/18/24 10:30 AM Still awaiting response from [facility] if they can accept patient. Leadership team aware. Floor mgr has spoken with family to update them. - NANCY PARRISH 07/18/24 2:50 PM [employer] [facility] 07-18-2024 Telephone encounter Note Patient returned your call and can be reached at: Call patient at: on cell [phone] (home) [phone] (cell) [facility] 07-18-2024 Telephone encounter Note -LVMTCB We are unable to assist in this matter. Pt last seen 04/2022 [facility] 07-18-2024 Miscellaneous Notes -LVMTCB We are unable to assist in this matter. Pt last seen 04/2022 Pt fell and is in [facility] and is requesting help with getting pt transferred to a [facility] facility Please call pts [phone] documented in this encounter [facility] 07-17-2024 Plan of care note [...] at the bedside 7. Instruct patient/ patient artists' booking representative about use of safety devices 8. Include patient/ patient artists' booking representative in decisions related to safety Outcome: [...] be free from fall Description: Interventions: 1. [place] to environment 2. Hourly rounds addressing the [...] non-skid footwear 11. Teach patient and patient artists' booking representative to maintain environment for safety and [...] (cane, walker) within reach 19. Request patient artists' booking representative bring adaptive equipment/mobility aids from home or obtain and provide as needed 20. Consult pharmacy regarding effects of med's affecting mobility, cognition, and alternatives 21. Obtain physician order for PT if risk factors associated with mobility are present 22. Obtain physician order for OT as appropriate 23. Utilize diversional activities 24. Educate patient and patient artists' booking representative how to maintain a safe environment during visitation times (notify nurse prior to leaving bedside) 25. Consider appropriateness of medical or non-medical chemist 26. Set up voiding schedule as appropriate (every 2 hours) Outcome: Progressing Note: Evaluation of progress towards goal: Patient will remain free from falls. [facility] [employer] [facility] 07-17-2024 Progress note Formatting of t his note might be different from the original. DISCHARGE PLANNING NOTE Referral sent to. [facility] (P# [phone] ; F# [phone], ) [facility] [employer] [facility] 07-17-2024 Progress note Formatting of t [...] Lorna Equipment: gait belt and chair alarm Telemetry/Cleaning Professional: Yes Oxygen Used: room air Other: fall [...] Goal: Patient will perform stairs/curb with Modified [place] Dates: Start: 07/13/24 Expected End: 07/27/24 Description: [...] problems. Principal Problem: Dementia with behavioral disturbance ([facility]) Active Problems: Altered mental status Status post colostomy, follow-up exam ([facility]) Cosigned by Janice Nuno PT at 07/18/2024 7:18 AM EST Associated attestation - Janice Nuno PT - 07/18/2024 7:18 AM EST I have reviewed and agree with this note and education documentation for this visit. [employer] 07-17-2024 Progress note Formatting of t his [...] Rothman Equipment: gait belt and chair alarm Telemetry/Cleaning Professional: Yes Oxygen Used: room air Other: fall [...] Date/Time User Outcome 07/17/24 1439 Yoanna Han-Mahoney, CASTING PLUG ASSEMBLER/L Progressing Problem: Standing Balance Dates: Start: 07/13/24 Disciplines: OT Goal: Improve balance to normal Dates: Start: 07/13/24 Expected End: 08/13/24 Description: Normal dynamic balance. Disciplines: OT Outcomes Date/Time User Outcome 07/17/24 1439 Yoanna Han-Mahoney, CASTING PLUG ASSEMBLER/L Progressing Problem: Toilet Transfers Dates: Start: 07/13/24 Disciplines: OT Goal: Patient will perform toilet transfers Independently Dates: Start: 07/13/24 Expected End: 08/13/24 Description: Goal Description: Disciplines: OT Outcomes Date/Time User Outcome 07/17/24 1439 Yoanna Han-Mahoney, CASTING PLUG ASSEMBLER/L Progressing Problem: Toileting Dates: Start: 07/13/24 Disciplines: OT Goal: Patient will perform toileting Independently Dates: Start: 07/13/24 Expected End: 08/13/24 Description: Goal Description: Disciplines: OT Outcomes Date/Time User Outcome 07/17/24 1439 Yoanna Guille-Mahoney, CASTING PLUG ASSEMBLER/L Progressing Problem: Transfers Dates: Start: 07/13/24 Disciplines: OT Goal: Patient will perform transfers Independently Dates: Start: 07/13/24 Expected End: 08/13/24 Description: Goal Description: Disciplines: OT Outcomes Date/Time User Outcome 07/17/24 1439 EN Hogan Progressing Occupational Therapy Care Plan (Resolved) There are no resolved problems. Principal Problem: Dementia with behavioral disturbance ([facility]) Active Problems: Altered mental status Status post colostomy, follow-up exam ([facility]) Cosigned by MAYNOR Navarro/Jerome at 07/17/2024 3:03 PM EST Associated attestation - Lucie Olivarez OTR/Jerome - 07/17/2024 3:03 PM EST I have reviewed and agree with this note and education documentation for this visit. [employer] 07-17-2024 Telephone encounter Note Pt fell and is in [facility] and is requesting help with getting pt transferred to a [facility] facility Please call pts [phone] [facility] 07-17-2024 Plan of care note [...] at the bedside 7. Instruct patient/ patient artists' booking representative about use of safety devices 8. Include patient/ patient artists' booking representative in decisions related to safety Outcome: Progressing Note: Evaluation of progress towards goal: Patient is injury free at this time. Problem: Knowledge Deficit Goal: Patient/patient artists' booking representative demonstrates understanding of disease process, treatment [...] =/> 25 or indicated by [facility] Assessment Goal: Patient should be free from fall Description: Interventions: 1. [place] to environment 2. Hourly rounds addressing the [...] non-skid footwear 11. Teach patient and patient artists' booking representative to maintain environment for safety and [...] (cane, walker) within reach 19. Request patient artists' booking representative bring adaptive equipment/mobility aids from home or obtain and provide as needed 20. Consult pharmacy regarding effects of med's affecting mobility, cognition, and alternatives 21. Obtain physician order for PT if risk factors associated with mobility are present 22. Obtain physician order for OT as appropriate 23. Utilize diversional activities 24. Educate patient and patient artists' booking representative how to maintain a safe environment during visitation times (notify nurse prior to leaving bedside) 25. Consider appropriateness of medical or non-medical chemist 26. Set up voiding schedule as appropriate (every 2 hours) Outcome: Progressing Note: Evaluation of progress towards goal: Patient is free from falls at this time. [employer] 07-17-2024 Progress note Formatting of t his note might be different from the original. DISCHARGE PLANNING NOTE fax referral to [facility] to [phone] shannan Shah [employer] 07-17-2024 Progress note Formatting of t his note is different from the original. Images from the original note were not included. DISCHARGE PLANNING NOTE Discussed patient today during rounds. Plan- IPR/TBI center. Barriers- acceptance, auth. This story writer called both reviewing facilities and left for admissions to see if they can accept. Asked them to call this story writer back. Floor nurse and leadership team aware. Services Requested: Services Requested Patient expects to be discharged to:: home vs snf Patient Goals: Goals: Goals (pt-stated) Evaluation of progress towards goal: TBD-pending PT/OT eval - NANCY PARRISH 07/17/24 9:42 AM At this time we do not have an accepting TBI/IPR facility. This story writer and metal flooring installer attempted to speak with patient's but she is not in the room. Also tried to call her but it went right to and her box is full. - NANCY PARRISH 07/17/24 1:43 PM [facility] called this story writer since they don't respond in careport and they can not accept patient. This story writer and metal flooring installer spoke with patient's and patient's [...] nurse. - NANCY PARRISH 07/17/24 2:45 PM [facility] Plan of care note Problem: Safety [...] at the bedside 7. Instruct patient/ patient artists' booking representative about use of safety devices 8. Include patient/ patient artists' booking representative in decisions related to safety Outcome: Progressing Note: Evaluation of progress towards goal: Patient remains injury and fall free. Safety precautions in place: call light within reach, bed in lowest position, personal belongings within reach, oriented to environment, and non-slip footwear on. Problem: Knowledge Deficit Goal: Patient/patient artists' booking representative demonstrates understanding of disease process, treatment [...] =/> 25 or indicated by [facility] Assessment Goal: Patient should be free from fall Description: Interventions: 1. [place] to environment 2. Hourly rounds addressing the [...] non-skid footwear 11. Teach patient and patient artists' booking representative to maintain environment for safety and [...] (cane, walker) within reach 19. Request patient artists' booking representative bring adaptive equipment/mobility aids from home or obtain and provide as needed 20. Consult pharmacy regarding effects of med's affecting mobility, cognition, and alternatives 21. Obtain physician order for PT if risk factors associated with mobility are present 22. Obtain physician order for OT as appropriate 23. Utilize diversional activities 24. Educate patient and patient artists' booking representative how to maintain a safe environment during visitation times (notify nurse prior to leaving bedside) 25. Consider appropriateness of medical or non-medical chemist 26. Set up voiding schedule as appropriate (every 2 hours) Outcome: Progressing Note: Evaluation of progress towards goal: Patient remains injury and fall free. Safety precautions in place: call light within reach, bed in lowest position, personal belongings within reach, oriented to environment, and non-slip footwear on. [facility] [employer] 07-16-2024 Progress note Formatting of t his [...] Problem: Auditory Comprehension Dates: Start: 07/12/24 Disciplines: METALLURGY TEACHER Goal: LTG: Patient will comprehend communication related to basic medical and social needs and utilize compensatory strategies to maintain safety in a functional living environment Dates: Start: 07/12/24 Expected End: 08/12/24 Disciplines: METALLURGY TEACHER Goal: STG: Patient will answer complex yes/no questions with 90% accuracy with minimal cueing Dates: Start: 07/12/24 Expected End: 08/12/24 Disciplines: METALLURGY TEACHER Outcomes Date/Time User Outcome 07/16/24 152Lauro Conchita Devi [facility] Goal: STG: Patient will complete 1-3 step commands with 90% accuracy with minimal cueing Dates: Start: 07/12/24 Expected End: 08/12/24 Disciplines: METALLURGY TEACHER Outcomes Date/Time User Outcome 07/16/24 Jenn MAGALI Castellanos Progressing Goal: STG: Patient will complete simple, phrase level auditory comprehension tasks with 90% accuracy with minimal cueing Dates: Start: 07/12/24 Expected End: 08/12/24 Disciplines: METALLURGY TEACHER Problem: Cognitive Linguistic Dates: Start: 07/12/24 Disciplines: METALLURGY TEACHER Goal: LTG: Patient will display functional cognitive-linguistic skills to demonstrate appropriate communication and safety within daily activities in a functional living environment Dates: Start: 07/12/24 Expected End: 08/12/24 Disciplines: METALLURGY TEACHER Goal: STG: Patient will demonstrate sustained attention by maintaining focus during a task for 10 minutes with minimal assistance Dates: Start: 07/12/24 Expected End: 08/12/24 Disciplines: METALLURGY TEACHER Outcomes Date/Time User Outcome 07/16/24 152Lauro Conchita Devi [facility] Progress[facility] Goal: STG: Patient will be appropriately oriented to person, place, time and situation with 90% accuracy with minimal cueing Dates: Start: 07/12/24 Expected End: 08/12/24 Disciplines: METALLURGY TEACHER Goal: STG: Patient will recall information discussed during therapy session via retelling/answering questions with 90% accuracy with minimal cueing Dates: Start: 07/12/24 Expected End: 08/12/24 Disciplines: METALLURGY TEACHER Problem: High Level Language Dates: Start: 07/12/24 Disciplines: METALLURGY TEACHER Goal: LTG: Patient will demonstrate use of self-awareness, goal setting, planning, initiation, self-monitoring and problem solving during daily activities to improve safety and awareness in a functional living environment Dates: Start: 07/12/24 Expected End: 08/12/24 Disciplines: METALLURGY TEACHER Goal: STG: Patient will sequence 4-6 steps to a task (verbal, written, pictures) with 90% accuracy with minimal cueing Dates: Start: 07/12/24 Expected End: 08/12/24 Disciplines: METALLURGY TEACHER Goal: STG: Patient will provide 3 appropriate solutions to problems of daily living with 90% accuracy with minimal cueing Dates: Start: 07/12/24 Expected End: 08/12/24 Disciplines: METALLURGY TEACHER Goal: STG: Patient will demonstrate functional problem solving and safety awareness with 90% accuracy in daily living tasks in order to increase safe interactions with environment and decrease assistance from caregivers Dates: Start: 07/12/24 Expected End: 08/12/24 Disciplines: METALLURGY TEACHER Problem: Verbal Expression Dates: Start: 07/12/24 Disciplines: METALLURGY TEACHER Goal: LTG: Patient will utilize compensatory strategies to communicate wants and needs effectively to different conversational partners, maintain safety and participate socially in a functional living environment Dates: Start: 07/12/24 Expected End: 08/12/24 Disciplines: METALLURGY TEACHER Goal: STG: Patient will respond to simple/complex open ended questions during activities of daily living with 90% accuracy with minimal cueing Dates: Start: 07/12/24 Expected End: 08/12/24 Disciplines: METALLURGY TEACHER Goal: STG: Patient will maintain topic of conversation to decrease tangential speech with 90% accuracy with minimal cueing Dates: Start: 07/12/24 Expected End: 08/12/24 Disciplines: METALLURGY TEACHER Outcomes Date/Time User Outcome 07/16/24 1520 Conchita Devi [facility] Progressing Speech Therapy Care Plan (Resolved) There are no resolved problems. Principal Problem: Dementia with behavioral disturbance ([facility]) Active Problems: Altered mental status Status post colostomy, follow-up exam ([facility]) [facility] [employer] 07-16-2024 Progress note Formatting of t his note might be different from the original. DISCHARGE PLANNING NOTE Resent referral in [facility] to [facility] P#[phone]; F#[phone] sent via secure fax to [phone] [facility] 07-16-2024 Plan of care note Problem: Safety [...] at the bedside 7. Instruct patient/ patient artists' booking representative about use of safety devices 8. Include patient/ patient artists' booking representative in decisions related to safety Outcome: Progressing Note: Evaluation of progress towards goal: pain will be adequally controlled to allow for rest and adl's Problem: Knowledge Deficit Goal: Patient/patient artists' booking representative demonstrates understanding of disease process, treatment [...] Moderate - High Risk Fall Score Description: [place] Fall Score of =/> 25 or indicated by [facility] Assessment Goal: Patient should be free from fall Description: Interventions: 1. [place] to environment 2. Hourly rounds addressing the [...] non-skid footwear 11. Teach patient and patient artists' booking representative to maintain environment for safety and [...] (cane, walker) within reach 19. Request patient artists' booking representative bring adaptive equipment/mobility aids from home or obtain and provide as needed 20. Consult pharmacy regarding effects of med's affecting mobility, cognition, and alternatives 21. Obtain physician order for PT if risk factors associated with mobility are present 22. Obtain physician order for OT as appropriate 23. Utilize diversional activities 24. Educate patient and patient artists' booking representative how to maintain a safe environment during visitation times (notify nurse prior to leaving bedside) 25. Consider appropriateness of medical or non-medical chemist 26. Set up voiding schedule as appropriate (every 2 hours) Outcome: Progressing Note: Evaluation of progress towards goal: fall bundle [employer] 07-16-2024 Progress note Formatting of t his note might be different from the original. DISCHARGE PLANNING NOTE Clinical updates sent to Referrals sent to [facility] (P# [phone] ; F# [phone]) and to [facility] and to [facility] [employer] 07-16-2024 Progress note Formatting of t his note might be different from the original. DISCHARGE PLANNING NOTE Referral sent to. [facility] [place] Via secure fax to [phone]. This is theor fax per phone call to facility. P#[phone]. Provider not in Careport. [facility] [employer] 07-16-2024 Progress note Formatting of t his note might be different from the original. DISCHARGE PLANNING NOTE Discharge plan- TBD waiting to hear from TBI/IPR who can accept out of the reviewing facilities. [facility] called this story writer and will call his to discuss. If they are able to accept she would owe private pay for room and board and money is due up front. Updated leadership team and floor nurse. - NANCY PARRISH 07/16/24 8:50 AM Discussed patient today during rounds. Called [facility] and left a VM for admissions to see if they can accept. Awaiting responses from the other facilities to respond. Barriers- acceptance, auth. - NANCY PARRISH 07/16/24 10:58 AM Called admissions at [facility] and [facility] and left VM asking them if they can accept and to call this story writer back. Left callback #. - NANCY PARRISH 07/16/24 11:05 AM Still awaiting responses from all reviewing IPR this time. Leadership aware. Called [facility] and spoke with admissions and they will review. Also called [facility] and left another VM. Both in [place] are still reviewing at this time. - NANCY PARRISH 07/16/24 1:39 PM Spoke with patient and to update them that at this time we are awaiting responses from 3 facilities. Leadership aware. - NANCY PARRISH 07/16/24 3:45 PM [employer] 07-16-2024 Plan of care note Problem: Safety [...] at the bedside 7. Instruct patient/ patient artists' booking representative about use of safety devices 8. Include patient/ patient artists' booking representative in decisions related to safety Outcome: Progressing Note: Evaluation of progress towards goal: Patient remains injury and fall free. Safety precautions in place: call light within reach, bed in lowest position, personal belongings within reach, oriented to environment, and non-slip footwear on. Problem: Knowledge Deficit Goal: Patient/patient artists' booking representative demonstrates understanding of disease process, treatment [...] Collaborate with ancillary departments 14. Include patient/patient artists' booking representative in decisions related to anxiety Outcome: Progressing Note: Evaluation of progress towards goal: Patient's anxiety appears to be at manageable level. Problem: Moderate - High Risk Fall Score Description: [place] Fall Score of =/> 25 or indicated by [facility] Assessment Goal: Patient should be free from fall Description: Interventions: 1. [place] to environment 2. Hourly rounds addressing the [...] non-skid footwear 11. Teach patient and patient artists' booking representative to maintain environment for safety and [...] (cane, walker) within reach 19. Request patient artists' booking representative bring adaptive equipment/mobility aids from home or obtain and provide as needed 20. Consult pharmacy regarding effects of med's affecting mobility, cognition, and alternatives 21. Obtain physician order for PT if risk factors associated with mobility are present 22. Obtain physician order for OT as appropriate 23. Utilize diversional activities 24. Educate patient and patient artists' booking representative how to maintain a safe environment during visitation times (notify nurse prior to leaving bedside) 25. Consider appropriateness of medical or non-medical chemist 26. Set up voiding schedule as appropriate (every 2 hours) Outcome: Progressing Note: Evaluation of progress towards goal: Patient remains injury and fall free. Safety precautions in place: call light within reach, bed in lowest position, personal belongings within reach, oriented to environment, and non-slip footwear on. [facility] 07-15-2024 Plan of care note Problem: [...] at the bedside 7. Instruct patient/ patient artists' booking representative about use of safety devices 8. Include patient/ patient artists' booking representative in decisions related to safety Outcome: [...] =/> 25 or indicated by [facility] Assessment Goal: Patient should be free from fall Description: Interventions: 1. [place] to environment 2. Hourly rounds addressing the [...] non-skid footwear 11. Teach patient and patient artists' booking representative to maintain environment for safety and [...] (cane, walker) within reach 19. Request patient artists' booking representative bring adaptive equipment/mobility aids from home or obtain and provide as needed 20. Consult pharmacy regarding effects of med's affecting mobility, cognition, and alternatives 21. Obtain physician order for PT if risk factors associated with mobility are present 22. Obtain physician order for OT as appropriate 23. Utilize diversional activities 24. Educate patient and patient artists' booking representative how to maintain a safe environment during visitation times (notify nurse prior to leaving bedside) 25. Consider appropriateness of medical or non-medical chemist 26. Set up voiding schedule as appropriate (every 2 hours) Outcome: Progressing Note: Evaluation of progress towards goal: Pt is free from falls. [facility] 07-15-2024 Plan of care note Problem: Safety [...] at the bedside 7. Instruct patient/ patient artists' booking representative about use of safety devices 8. Include patient/ patient artists' booking representative in decisions related to safety Outcome: Progressing Note: Evaluation of progress towards goal: Proper identifiers used with patient care and medication administration. Remains free of injury during shift Problem: Knowledge Deficit Goal: Patient/patient artists' booking representative demonstrates understanding of disease process, treatment [...] Collaborate with ancillary departments 14. Include patient/patient artists' booking representative in decisions related to anxiety Outcome: Progressing Note: Evaluation of progress towards goal: Patient verbalizes a tolerable anxiety level and remains free of signs and symptoms of anxiety. Will continue to explain treatment plan and monitor for changes in anxiety levels. Problem: Moderate - High Risk Fall Score Description: [place] Fall Score of =/> 25 or indicated by [facility] Assessment Goal: Patient should be free from fall Description: Interventions: 1. [place] to environment 2. Hourly rounds addressing the [...] non-skid footwear 11. Teach patient and patient artists' booking representative to maintain environment for safety and [...] (cane, walker) within reach 19. Request patient artists' booking representative bring adaptive equipment/mobility aids from home or obtain and provide as needed 20. Consult pharmacy regarding effects of med's affecting mobility, cognition, and alternatives 21. Obtain physician order for PT if risk factors associated with mobility are present 22. Obtain physician order for OT as appropriate 23. Utilize diversional activities 24. Educate patient and patient artists' booking representative how to maintain a safe environment during visitation times (notify nurse prior to leaving bedside) 25. Consider appropriateness of medical or non-medical chemist 26. Set up voiding schedule as appropriate (every 2 hours) Outcome: Progressing Note: Evaluation of progress towards goal: Call light within reach. Remains free of fall or injury. Environment free of clutter. [facility] [employer] 2024 Plan of care note Problem: Safety [...] at the bedside 7. Instruct patient/ patient artists' booking representative about use of safety devices 8. Include patient/ patient artists' booking representative in decisions related to safety Outcome: Progressing Note: Evaluation of progress towards goal: pain will be controlled to allow for rest and adl's Problem: Knowledge Deficit Goal: Patient/patient artists' booking representative demonstrates understanding of disease process, treatment [...] Collaborate with ancillary departments 14. Include patient/patient artists' booking representative in decisions related to anxiety Outcome: Progressing Note: Evaluation of progress towards goal: listen and reassuring Problem: Moderate - High Risk Fall Score Description: [place] Fall Score of =/> 25 or indicated by [facility] Assessment Goal: Patient should be free from fall Description: Interventions: 1. [place] to environment 2. Hourly rounds addressing the [...] non-skid footwear 11. Teach patient and patient artists' booking representative to maintain environment for safety and [...] (cane, walker) within reach 19. Request patient artists' booking representative bring adaptive equipment/mobility aids from home or obtain and provide as needed 20. Consult pharmacy regarding effects of med's affecting mobility, cognition, and alternatives 21. Obtain physician order for PT if risk factors associated with mobility are present 22. Obtain physician order for OT as appropriate 23. Utilize diversional activities 24. Educate patient and patient artists' booking representative how to maintain a safe environment during visitation times (notify nurse prior to leaving bedside) 25. Consider appropriateness of medical or non-medical chemist 26. Set up voiding schedule as appropriate (every 2 hours) Outcome: Progressing Note: Evaluation of progress towards goal: fallbundle [employer] 2024 Progress note Formatting of t his note might be different from the original. DISCHARGE PLANNING NOTE Referrals sent to [facility] (P# [phone] ; F# [phone]) and to [facility] and to [facility] and to [facility] p#: [phone] f#: [phone] [facility] [employer] 2024 Progress note Formatting of t his note might be different from the original. DISCHARGE PLANNING NOTE Follow-up Discharge Planning Progress Note Per RN during discharge transition rounds, barriers to discharge are: Accepting acute inpatient rehabilitation center. Discharge Plan: [employer] Supervisor followed up with patient, spouse and patient sister at bedside. Updated, [facility], not accepting, not in network with [...] Discussed lower levels of care such as Nursing Home Facility and Home care. Patient spouse and sister verbalized understanding. Choices received. [facility] tasked to send referrals. Attempted to contact Jaciel Venegas, admission office closed on weekend. Care Navigation will continue to follow for any discharge needs. - Shweta Delgado RN 07/14/24 1:22 PM [employer] 07-13-2024 Plan of care note Problem: Safety [...] at the bedside 7. Instruct patient/ patient artists' booking representative about use of safety devices 8. Include patient/ patient artists' booking representative in decisions related to safety Outcome: Progressing Note: Evaluation of progress towards goal: Proper identifiers used with patient care and medication administration. Remains free of injury during shift Problem: Knowledge Deficit Goal: Patient/patient artists' booking representative demonstrates understanding of disease process, treatment [...] Collaborate with ancillary departments 14. Include patient/patient artists' booking representative in decisions related to anxiety Outcome: Progressing Note: Evaluation of progress towards goal: Patient remains free of signs and symptoms of anxiety. Will continue to explain treatment plan and monitor for changes in anxiety levels. Problem: Moderate - High Risk Fall Score Description: [place] Fall Score of =/> 25 or indicated by [facility] Assessment Goal: Patient should be free from fall Description: Interventions: 1. [place] to environment 2. Hourly rounds addressing the [...] non-skid footwear 11. Teach patient and patient artists' booking representative to maintain environment for safety and [...] (cane, walker) within reach 19. Request patient artists' booking representative bring adaptive equipment/mobility aids from home or obtain and provide as needed 20. Consult pharmacy regarding effects of med's affecting mobility, cognition, and alternatives 21. Obtain physician order for PT if risk factors associated with mobility are present 22. Obtain physician order for OT as appropriate 23. Utilize diversional activities 24. Educate patient and patient artists' booking representative how to maintain a safe environment during visitation times (notify nurse prior to leaving bedside) 25. Consider appropriateness of medical or non-medical chemist 26. Set up voiding schedule as appropriate (every 2 hours) Outcome: Progressing Note: Evaluation of progress towards goal: Call light within reach. Remains free of fall or injury. Environment free of clutter. Problem: Safety - Medical Restraint Goal: Remains free of injury from restraints (Restraint for Interference with Secondary Set Up Man) Description: INTERVENTIONS: 1. Determine that other, less [...] Free from restraint(s) (Restraint for Interference with Secondary Set Up Man) Description: INTERVENTIONS: 1. ONCE/SHIFT or MINIMUM Q12H: [...] safety; individualizes the safety outcome Outcome: Completed [facility] [employer] 07-13-2024 Progress note Formatting of t his note might be different from the original. Per Lesia COVARRUBIAS CN patient's and sister were very upset that [facility] did not accept patient. They declined to offer any other choices for facilities to her at this time. Lesia encouraged them to allow her to make referrals to some TBI facilities at [facility] and in [place] but at this time they are angry that [facility] did not accept patient. [employer] Supervisor will request SW follow up with them in the morning to obtain choices to continue developing a transition of care plan. [facility] [employer] [facility] 07-13-2024 Progress note Formatting of t his note might be different from the original. DISCHARGE PLANNING NOTE Referral sent to [facility] P#[phone]; F#[phone]); [facility] Centers, a division of [facility] P# [phone] [calling report];/[facility] (P# [calling report]; F# ) [facility] 07-13-[facility]24 Progress note Formatting of t his note might be different from the original. DISCHARGE PLANNING NOTE Per RN during discharge transition rounds, barriers to discharge are: Telesitter, PMR re-eval, Seroquel dose adjustment. Discharge Plan: IPR for TBI rehab. PT/OT recommended IPR. CN met with and sister Earlene. wants a referral sent [facility]. CN discussed discharge and making referrals to other TBI/ IPR rehabs in the state, and sister stated they are putting all their zak in [facility] being able to accept the patient. Registry Rn will continue to follow for any discharge needs. - Lesia Caba RN 07/13/24 12:18 PM Addendum: [facility] is not in network with patients [employer] insurance. gave CN two more choices : [facility] IPR and [facility] rehab. [facility] tasked to send referrals. and sister are calling insurance to ask about a one time contract to [facility]. Ethel , [facility] rep, stopped in to talk to and sister. - Lesia Caba RN 07/13/24 2:10 PM Addendum: Patient's and sister asked CN to listen and talk to insurance special agent regarding a one time approval for the IPR: [facility]. Truck Switcher Xiomy with [employer] stated attending or managing physician needs to document patient's health status and progression, information on why the patient needs to go this specific facility for rehab, include diagnosis codes and services codes. Fax: Prior Auth Request to [phone] attn: Prior Auth Request at [address]. CN sent pic chat to Dr. Nichol [...] - Lesia Caba RN 07/13/24 3:51 PM [facility] Progress note Formatting of t his note might be different from the original. DISCHARGE PLANNING NOTE Referral to [facility] (P# ; F# ) [facility] 07-13-2024 Progress note Formatting of t [...] 11/24/2019 Performed by Skyler Bowen MD at [facility] [place] 3YEARS AGO COLOSTOMY CLOSURE Therapy Plan Need [...] early mobility guidelines. Equipment: gait belt, telemetry Telemetry/Cleaning Professional: Yes Oxygen Used: room air Other: fall [...] and pants. Patient was able to static email marketing assistant front of toilet with contact guard. Patient was unable to void due to trouble with processing, safety and judgement. Home Management - IADL Other: patient has trouble executing tasks. patient was able to ambulate into bathroom with contact guard. patient required min assist to doff underware and pants. Patient was able to static email marketing assistant front of toilet with contact guard. Patient [...] problems. Principal Problem: Dementia with behavioral disturbance ([facility]) Active Problems: Altered mental status Status post colostomy, follow-up exam ([facility]) [facility] 07-13-2024 Progress note Formatting of t [...] from admission 07/06 as a transfer from [facility] for neurological work up. Patient diagnosed with early onset dementia 2022, per spouse report after skilled nursing and med changes cognitive status had improved and stabilized prior to fall in May 2024. 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 Pt discharged to inpatient treatment facility and returned to [facility] for scheduled MRI. 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 Principal Problem: Dementia with behavioral disturbance ([facility]) Active Problems: Altered mental status Status post colostomy, follow-up exam ([facility]) [facility] 07-12-2024 Plan of care note Problem: [...] at the bedside 7. Instruct patient/ patient artists' booking representative about use of safety devices 8. Include patient/ patient artists' booking representative in decisions related to safety Outcome: Progressing Note: Evaluation of progress towards goal: Patient remains injury and fall free. Safety precautions in place: call light within reach, bed in lowest position, personal belongings within reach, oriented to environment, and non-slip footwear on. Problem: Knowledge Deficit Goal: Patient/patient artists' booking representative demonstrates understanding of disease process, treatment [...] Collaborate with ancillary departments 14. Include patient/patient artists' booking representative in decisions related to anxiety Outcome: Progressing Note: Evaluation of progress towards goal: Patient's has at bedside to help with spells of anxiety. Problem: Moderate - High Risk Fall Score Description: Gallegos Fall Score of =/> 25 or indicated by [facility] Assessment Goal: Patient should be free from fall Description: Interventions: 1. [place] to environment 2. Hourly rounds addressing the [...] non-skid footwear 11. Teach patient and patient artists' booking representative to maintain environment for safety and [...] (cane, walker) within reach 19. Request patient artists' booking representative bring adaptive equipment/mobility aids from home or obtain and provide as needed 20. Consult pharmacy regarding effects of med's affecting mobility, cognition, and alternatives 21. Obtain physician order for PT if risk factors associated with mobility are present 22. Obtain physician order for OT as appropriate 23. Utilize diversional activities 24. Educate patient and patient artists' booking representative how to maintain a safe environment during visitation times (notify nurse prior to leaving bedside) 25. Consider appropriateness of medical or non-medical chemist 26. Set up voiding schedule as appropriate (every 2 hours) Outcome: Progressing Note: Evaluation of progress towards goal: Patient remains injury and fall free. Safety precautions in place: call light within reach, bed in lowest position, personal belongings within reach, oriented to environment, and non-slip footwear on. Problem: Safety - Medical Restraint Goal: Remains free of injury from restraints (Restraint for Interference with Secondary Set Up Man) Description: INTERVENTIONS: 1. Determine that other, less [...] Free from restraint(s) (Restraint for Interference with Secondary Set Up Man) Description: INTERVENTIONS: 1. ONCE/SHIFT or MINIMUM Q12H: [...] nutrition and hydration, hygiene, ROM, elimination needs [facility] 07-12-2024 Progress note Formatting of t his note might be different from the original. DISCHARGE PLANNING NOTE Per RN during discharge transition rounds, barriers to discharge are: PMR consult today, 2 point restraints, telesitter Discharge Plan: TBD. PMR is requesting PT/OT notes. Will wait for therapy input. not available this afternoon. CN escalated this case to CN leadership. Registry Rn will continue to follow for any discharge needs. - Lesia Caba RN 07/12/24 3:24 PM [facility] 07-12-2024 Plan of care note Problem: [...] at the bedside 7. Instruct patient/ patient artists' booking representative about use of safety devices 8. Include patient/ patient artists' booking representative in decisions related to safety Outcome: Progressing Note: Evaluation of progress towards goal: Patient remains injury free at present time. Safe environment provided and maintained. Medications administered using 5 rights. Problem: Knowledge Deficit Goal: Patient/patient artists' booking representative demonstrates understanding of disease process, treatment [...] Collaborate with ancillary departments 14. Include patient/patient artists' booking representative in decisions related to anxiety Outcome: Progressing Note: Evaluation of progress towards goal: Patient has family at bedside assisting with anxiety. Problem: Safety - Medical Restraint Goal: Remains free of injury from restraints (Restraint for Interference with Secondary Set Up Man) Description: INTERVENTIONS: 1. Determine that other, less [...] Free from restraint(s) (Restraint for Interference with Secondary Set Up Man) Description: INTERVENTIONS: 1. ONCE/SHIFT or MINIMUM Q12H: [...] assess q2 restraints, qshift assessed for necessity. [facility] 07-12-2024 Progress note Formatting of t [...] continue to follow along. Prognosis Services: Skilled METALLURGY TEACHER services to address the above deficits Prognosis/Potential: [...] Plan Speech Therapy Care Plan (Active) Template: [facility] Speech Problem: Auditory Comprehension Dates: Start: 07/12/24 Disciplines: METALLURGY TEACHER Goal: LTG: Patient will comprehend communication related to basic medical and social needs and utilize compensatory strategies to maintain safety in a functional living environment Dates: Start: 07/12/24 Expected End: 08/12/24 Disciplines: METALLURGY TEACHER Goal: STG: Patient will answer complex yes/no questions with 90% accuracy with minimal cueing Dates: Start: 07/12/24 Expected End: 08/12/24 Disciplines: METALLURGY TEACHER Goal: STG: Patient will complete 1-3 step commands with 90% accuracy with minimal cueing Dates: Start: 07/12/24 Expected End: 08/12/24 Disciplines: METALLURGY TEACHER Goal: STG: Patient will complete simple, phrase level auditory comprehension tasks with 90% accuracy with minimal cueing Dates: Start: 07/12/24 Expected End: 08/12/24 Disciplines: METALLURGY TEACHER Problem: Cognitive Linguistic Dates: Start: 07/12/24 Disciplines: METALLURGY TEACHER Goal: LTG: Patient will display functional cognitive-linguistic skills to demonstrate appropriate communication and safety within daily activities in a functional living environment Dates: Start: 07/12/24 Expected End: 08/12/24 Disciplines: METALLURGY TEACHER Goal: STG: Patient will demonstrate sustained attention by maintaining focus during a task for 10 minutes with minimal assistance Dates: Start: 07/12/24 Expected End: 08/12/24 Disciplines: METALLURGY TEACHER Goal: STG: Patient will be appropriately oriented to person, place, time and situation with 90% accuracy with minimal cueing Dates: Start: 07/12/24 Expected End: 08/12/24 Disciplines: METALLURGY TEACHER Goal: STG: Patient will recall information discussed during therapy session via retelling/answering questions with 90% accuracy with minimal cueing Dates: Start: 07/12/24 Expected End: 08/12/24 Disciplines: METALLURGY TEACHER Problem: High Level Language Dates: Start: 07/12/24 Disciplines: METALLURGY TEACHER Goal: LTG: Patient will demonstrate use of self-awareness, goal setting, planning, initiation, self-monitoring and problem solving during daily activities to improve safety and awareness in a functional living environment Dates: Start: 07/12/24 Expected End: 08/12/24 Disciplines: METALLURGY TEACHER Goal: STG: Patient will sequence 4-6 steps to a task (verbal, written, pictures) with 90% accuracy with minimal cueing Dates: Start: 07/12/24 Expected End: 08/12/24 Disciplines: METALLURGY TEACHER Goal: STG: Patient will provide 3 appropriate solutions to problems of daily living with 90% accuracy with minimal cueing Dates: Start: 07/12/24 Expected End: 08/12/24 Disciplines: METALLURGY TEACHER Goal: STG: Patient will demonstrate functional problem solving and safety awareness with 90% accuracy in daily living tasks in order to increase safe interactions with environment and decrease assistance from caregivers Dates: Start: 07/12/24 Expected End: 08/12/24 Disciplines: METALLURGY TEACHER Problem: Verbal Expression Dates: Start: 07/12/24 Disciplines: METALLURGY TEACHER Goal: LTG: Patient will utilize compensatory strategies to communicate wants and needs effectively to different conversational partners, maintain safety and participate socially in a functional living environment Dates: Start: 07/12/24 Expected End: 08/12/24 Disciplines: METALLURGY TEACHER Goal: STG: Patient will respond to simple/complex open ended questions during activities of daily living with 90% accuracy with minimal cueing Dates: Start: 07/12/24 Expected End: 02/23/25 Disciplines: METALLURGY TEACHER Goal: STG: Patient will maintain topic of conversation to decrease tangential speech with 90% accuracy with minimal cueing Dates: Start: 07/12/24 Expected End: 08/12/24 Disciplines: METALLURGY TEACHER Speech Therapy Care Plan (Resolved) There are no resolved problems. Principal Problem: Dementia with behavioral disturbance ([facility]) Active Problems: Altered mental status Status post colostomy, follow-up exam ([facility]) [facility] 07-12-2024 Miscellaneous Notes Patient's sister, Earlene (not on HIPAA), called in asking to speak with Dr Price regarding patient's admission at [facility]. Patient had a tele consult with Dr Price on 07/03/24. Earlene would like to discuss some concerns that she has with Dr Price and possibly set up a hospital follow up. She is asking for a call back to further discuss [phone] CALLED AND SPOKE TO EARLENE TO LET HER KNOW THAT NOTHING CAN BE DISCUSSED WITH HER DUE TO HER NOT BEING ON PATIENTS HIPAA. EARLENE UNDERSTOOD Patient's spouse [phone] stated that they would like a call back to discuss [facility] stay. Called and spoke to patients and told her Dr Price seen Estella on a consultation on 07/03/24 and is no longer under his care. Dr Price consulted because he was food preparation supervisor and that the patient is still in [...] her insurance company. documented in this encounter [employer] 07-12-2024 Telephone encounter Note Patient's sister, Earlene (not on HIPAA), called in asking to speak with Dr Price regarding patient's admission at [facility]. Patient had a tele consult with Dr Price on 07/03/24. Earlene would like to discuss some concerns that she has with Dr Price and possibly set up a hospital follow up. She is asking for a call back to further discuss [phone] [employer] 07-12-2024 Telephone encounter Note CALLED AND SPOKE TO EARLENE TO LET HER KNOW THAT NOTHING CAN BE DISCUSSED WITH HER DUE TO HER NOT BEING ON PATIENTS HIPAA. EARLENE UNDERSTOOD [employer] 07-12-2024 Telephone encounter Note Patient's spouse [phone] stated that they would like a call back to discuss [facility] stay. [employer] 07-12-2024 Telephone encounter Note Called and spoke to patients and told her Dr Price seen Estella on a consultation on 07/03/24 and is no longer under his care. Dr Price consulted because he was food preparation supervisor and that the patient is still in [...] the care team and her insurance company. [facility] 07-12-2024 Consult note Associated Order (s): IP CONSULT TO PHYSICAL MEDICINE REHAB Images from the original note were not included. PHYSICAL MEDICINE AND REHABILITATION CONSULT Date of Admission: 07/06/2024 7:28 AM Referring Physician: Nichol Heath MD PCP: JAE LOPEZ MD Chief Compliant: Principal Problem: Dementia with behavioral disturbance ([facility]) Active Problems: Altered mental status Status post colostomy, follow-up exam ([facility]) Reason for Consultation: Rehabilitation Candidacy and Rehab Welfare Project Manager Physicians/Services Consulting Providers Provider Service Specialty Mina [...] reflux disease) High cholesterol Perforated sigmoid colon ([facility]) [facility] Past Surgical History: Procedure Laterality Date ARM EXPLORATION WITH REPAIR LACERATED ULNAR ARTERY Left 11/24/2019 Performed by Skyler Bowen MD at [facility] [place] 3YEARS AGO COLOSTOMY CLOSURE Allergies Allergies Allergen [...] Time: 07/10/24 9:[address] [facility] [address] [place] [address] Cytology Consultation Patient Name:ESTELLA JEFFERY:1965 (Age: 58)Gender:MTaken:07/10/2024Report ed:07/11/2024 16:49Physician(s):Arnulfo Haley M.D. ([phone])Copy To:Quinton Harrell M.D. Rec. #:[id number]: #[id number] Final Cytologic Diagnosis Cerebrospinal fluid: No malignant cells identified. gr/07/11/2024 Interpretation performed at [facility], [address] [place] [address], License number: [id number].Electronically Signed Out By Derick Lorenz MD Additional Report(s): Flow Cytometry-Surg/BM/NG Date Reported: # Immunophenotyping antibodies tested: CD3, CD4, CD5, CD7, CD8, CD19, CD20, CD45, Samoset, and Lambda. Immunophenotyping Comment: Immunophenotyping has been used in this diagnostic evaluation. This test was developed and its performance characteristics determined by the [facility] Department. It has not been [...] MD Clinical History Dementia with behavioral disturbance ([facility]) F03.918, acute change in personality Gross Description Received was 2ml of clear colorless fluid unfixed labeled as Jeffery, CSF . Also received is one cytospin slide from Hematology. Source of Specimen Cerebrospinal fluid Non SHOT HOLE SHOOTER ThinPrep, Cytospin Slide Fee Code(s): 1; 56463 VDRL, Spinal Fluid Collection Time: 07/10/24 9:39 [...] Assessment/Plan Principal Problem: Dementia with behavioral disturbance ([facility]) Active Problems: Altered mental status Status post colostomy, follow-up exam ([facility]) Acute mental status change [...] you for the referral. Nito Mirza MD [facility] Work Phone: 07-12-2024 Plan of care note Problem: Safety - Medical Restraint Goal: Remains free of injury from restraints (Restraint for Interference with Secondary Set Up Man) Description: INTERVENTIONS: 1. Determine that other, less [...] Free from restraint(s) (Restraint for Interference with Secondary Set Up Man) Description: INTERVENTIONS: 1. ONCE/SHIFT or MINIMUM Q12H: [...] nutrition and hydration, hygiene, ROM, elimination needs [facility] 07-12-2024 Progress note Formatting of t his note might be different from the original. BEHAVIORAL RESTRAINTS PROVIDER ONE HOUR [id number] EVALUATION NOTE Estella Jeffery was evaluated on [...] and others. Jackson Peterson PA-C 07/12/24 0058 [facility] Work Phone: 07-11-2024 Plan of care note [...] at the bedside 7. Instruct patient/ patient artists' booking representative about use of safety devices 8. Include patient/ patient artists' booking representative in decisions related to safety Outcome: Progressing Note: Evaluation of progress towards goal: Patient remains injury and fall free. Safety precautions in place: call light within reach, bed in lowest position, personal belongings within reach, oriented to environment, and non-slip footwear on. Problem: Knowledge Deficit Goal: Patient/patient artists' booking representative demonstrates understanding of disease process, treatment [...] Collaborate with ancillary departments 14. Include patient/patient artists' booking representative in decisions related to anxiety Outcome: Progressing Note: Evaluation of progress towards goal: Patient has at bedside aiding in assisting with anxiety. Problem: Moderate - High Risk Fall Score Description: Gallegos Fall Score of =/> 25 or indicated by [facility] Assessment Goal: Patient should be free from fall Description: Interventions: 1. [place] to environment 2. Hourly rounds addressing the [...] non-skid footwear 11. Teach patient and patient artists' booking representative to maintain environment for safety and [...] (cane, walker) within reach 19. Request patient artists' booking representative bring adaptive equipment/mobility aids from home or obtain and provide as needed 20. Consult pharmacy regarding effects of med's affecting mobility, cognition, and alternatives 21. Obtain physician order for PT if risk factors associated with mobility are present 22. Obtain physician order for OT as appropriate 23. Utilize diversional activities 24. Educate patient and patient artists' booking representative how to maintain a safe environment during visitation times (notify nurse prior to leaving bedside) 25. Consider appropriateness of medical or non-medical chemist 26. Set up voiding schedule as appropriate (every 2 hours) Outcome: Progressing Note: Evaluation of progress towards goal: Patient remains injury and fall free. Safety precautions in place: call light within reach, bed in lowest position, personal belongings within reach, oriented to environment, and non-slip footwear on. [facility] [employer] 07-11-2024 Consult note Associated Order (s): IP CONSULT TO PSYCHIATRY PSYCHIATRIC EVALUATION No contraindications for seclusion No contraindications for restraint CHIEF COMPLAINT: Dementia with behavioral disturbance (CMS-HCC) Estella Jeffery is a 58 y.o. male who presents with Dementia with behavioral disturbance (CMS-HCC) .he is HISTORY OF PRESENT ILLNESS: The patient is a 58-year-old Portuguese male treatment at the [facility] for the patient has a substantial history of dyslipidemia, sleep apnea, type 2 diabetes mellitus, recent diagnosed history of early-onset Alzheimer's dementia, an epileptic disorder in remission, as well as a recent admission to [facility] for altered mental status. An MRI [...] discharged to a memory care unit or retirement that is well-versed in the treatment of [...] Bowen MD at [facility] [place] 3YEARS AGO COLOSTOMY CLOSURE Medications Prior to [...] to a memory care unit or a retirement that is well-versed in management of memory [...] diversion. Mina Franks MD 07/11/2024 1:11 PM [employer] 07-11-2024 Progress note Formatting of t his note might be different from the original. DISCHARGE PLANNING NOTE Per RN during discharge transition rounds, barriers to discharge are: re-consulting psych today, telesitter and soft restraints, MRI and LP completed yesterday, patient behaviors are worse at night, unpredictable and confused. Discharge Plan: [facility] psych stated [facility] was sent a referral and they have declined. Waiting input from psych. Registry Rn will continue to follow for any discharge needs. - Lesia Caba RN 07/11/24 12:06 PM Late entery: CN met with patient, Kari, and sister Earlene on Tuesday afternoon. and sister want the patient to go to a Traumatic Brain Injury rehab unit. CN began researching TBI Rehab units in the area, reported back to the and sister after finding TBI rehab units in [facility]. Sister asked for me to look in [facility]. and sister do not want any referrals send until they are able to meet with the neurologist again, sister wants to look into the TBI units in the [facility] herself before any referrals are sent. - Lesia Caba RN 07/12/24 8:11 AM [employer] 07-11-2024 Progress note Formatting of t his note might be different from the original. Referral sent to [facility] to assess for admission to that center's inpatient psychiatric unit. After a clinical review and screening was completed [facility] assessed patient as inappropriate for treatment at that facility. Will alert care team. - NANCY Martines 07/11/24 10:33 AM [employer] [facility] 07-11-2024 Progress note Formatting of t his note might be different from the original. DISCHARGE PLANNING NOTE Updates to [facility] [phone] [employer] 07-11-2024 Plan of care note Problem: Safety [...] at the bedside 7. Instruct patient/ patient artists' booking representative about use of safety devices 8. Include patient/ patient artists' booking representative in decisions related to safety Outcome: Progressing Note: Evaluation of progress towards goal: Patient remains injury free at present time. Safe environment provided and maintained. Medications administered using 5 rights. Problem: Knowledge Deficit Goal: Patient/patient artists' booking representative demonstrates understanding of disease process, treatment [...] Collaborate with ancillary departments 14. Include patient/patient artists' booking representative in decisions related to anxiety Outcome: Progressing Note: Evaluation of progress towards goal: Patient has at bedside assisting with anxiety. Problem: Moderate - High Risk Fall Score Description: Gallegos Fall Score of =/> 25 or indicated by [facility] Assessment Goal: Patient should be free from fall Description: Interventions: 1. [place] to environment 2. Hourly rounds addressing the [...] non-skid footwear 11. Teach patient and patient artists' booking representative to maintain environment for safety and [...] (cane, walker) within reach 19. Request patient artists' booking representative bring adaptive equipment/mobility aids from home or obtain and provide as needed 20. Consult pharmacy regarding effects of med's affecting mobility, cognition, and alternatives 21. Obtain physician order for PT if risk factors associated with mobility are present 22. Obtain physician order for OT as appropriate 23. Utilize diversional activities 24. Educate patient and patient artists' booking representative how to maintain a safe environment during visitation times (notify nurse prior to leaving bedside) 25. Consider appropriateness of medical or non-medical chemist 26. Set up voiding schedule as appropriate (every 2 hours) Outcome: Progressing Note: Evaluation of progress towards goal: Patient currently free from falls, up standby. [facility] 07-11-2024 Plan of care note Problem: [...] injury from restraints (Restraint for Interference with Secondary Set Up Man) Description: INTERVENTIONS: 1. Determine that other, less [...] Free from restraint(s) (Restraint for Interference with Secondary Set Up Man) Description: INTERVENTIONS: 1. ONCE/SHIFT or MINIMUM Q12H: [...] nutrition and hydration, hygiene, ROM, elimination needs [facility] 07-10-2024 Progress note Formatting of t his note might be different from the original. BEHAVIORAL RESTRAINTS PROVIDER ONE HOUR [id number] EVALUATION NOTE Estella Jeffery was evaluated on [...] and others. Jackson Peterson PA-C 07/11/24 0036 [facility] 07-10-2024 Plan of care note Problem: [...] at the bedside 7. Instruct patient/ patient artists' booking representative about use of safety devices 8. Include patient/ patient artists' booking representative in decisions related to safety Outcome: [...] hygiene technique. 7. Identify and instruct patient/patient artists' booking representative in use of appropriate isolation precautions for identified infection/symptoms. 8. Provide and discuss with patient/patient artists' booking representative on educational MDRO sheet. 9. Encourage and monitor nutritional status daily and consult pet trainer if indicated. 10. Implement neutropenic guidelines as needed. Outcome: Progressing Note: Evaluation of progress towards goal: Patient remains free of any signs of infection. Signs and symptoms being monitor such as fevers, chills, warm/red areas. Problem: Knowledge Deficit Goal: Patient/patient artists' booking representative demonstrates understanding of disease process, treatment [...] Collaborate with ancillary departments 14. Include patient/patient artists' booking representative in decisions related to anxiety Outcome: Progressing Note: Evaluation of progress towards goal: Patient's anxiety is at manageable level. Problem: Safety - Medical Restraint Goal: Remains free of injury from restraints (Restraint for Interference with Secondary Set Up Man) Description: INTERVENTIONS: 1. Determine that other, less [...] Free from restraint(s) (Restraint for Interference with Secondary Set Up Man) Description: INTERVENTIONS: 1. ONCE/SHIFT or MINIMUM Q12H: [...] on patient's door 9. Provide patient/ patient artists' booking representative with isolation education. Outcome: Progressing Note: [...] be free from fall Description: Interventions: 1. [place] to environment 2. Hourly rounds addressing the [...] non-skid footwear 11. Teach patient and patient artists' booking representative to maintain environment for safety and [...] (cane, walker) within reach 19. Request patient artists' booking representative bring adaptive equipment/mobility aids from home or obtain and provide as needed 20. Consult pharmacy regarding effects of med's affecting mobility, cognition, and alternatives 21. Obtain physician order for PT if risk factors associated with mobility are present 22. Obtain physician order for OT as appropriate 23. Utilize diversional activities 24. Educate patient and patient artists' booking representative how to maintain a safe environment during visitation times (notify nurse prior to leaving bedside) 25. Consider appropriateness of medical or non-medical chemist 26. Set up voiding schedule as appropriate (every 2 hours) Outcome: Progressing Note: Evaluation of progress towards goal: Patient remains injury and fall free. Safety precautions in place: call light within reach, bed in lowest position, personal belongings within reach, oriented to environment, and non-slip footwear on. [facility] [employer] [facility] 07-10-2024 Plan of care note Problem: [...] at the bedside 7. Instruct patient/ patient artists' booking representative about use of safety devices 8. Include patient/ patient artists' booking representative in decisions related to safety Outcome: [...] hygiene technique. 7. Identify and instruct patient/patient artists' booking representative in use of appropriate isolation precautions for identified infection/symptoms. 8. Provide and discuss with patient/patient artists' booking representative on educational MDRO sheet. 9. Encourage and monitor nutritional status daily and consult pet trainer if indicated. 10. Implement neutropenic guidelines as needed. Outcome: Progressing Note: Evaluation of progress towards goal: patient remains afebrile at this time Problem: Knowledge Deficit Goal: Patient/patient artists' booking representative demonstrates understanding of disease process, treatment [...] Collaborate with ancillary departments 14. Include patient/patient artists' booking representative in decisions related to anxiety Outcome: Progressing Note: Evaluation of progress towards goal: discussed w/ patient coping strategies & dietary changes that may aid in controlling stress & anxiety. Problem: Safety - Medical Restraint Goal: Remains free of injury from restraints (Restraint for Interference with Secondary Set Up Man) Description: INTERVENTIONS: 1. Determine that other, less [...] Free from restraint(s) (Restraint for Interference with Secondary Set Up Man) Description: INTERVENTIONS: 1. ONCE/SHIFT or MINIMUM Q12H: [...] on patient's door 9. Provide patient/ patient artists' booking representative with isolation education. Outcome: Progressing Note: Evaluation of progress towards goal: patient remains afebrile at this time Problem: Moderate - High Risk Fall Score Description: Gallegos Fall Score of =/> 25 or indicated by [facility] Assessment Goal: Patient should be free from fall Description: Interventions: 1. [place] to environment 2. Hourly rounds addressing the [...] non-skid footwear 11. Teach patient and patient artists' booking representative to maintain environment for safety and [...] (cane, walker) within reach 19. Request patient artists' booking representative bring adaptive equipment/mobility aids from home or obtain and provide as needed 20. Consult pharmacy regarding effects of med's affecting mobility, cognition, and alternatives 21. Obtain physician order for PT if risk factors associated with mobility are present 22. Obtain physician order for OT as appropriate 23. Utilize diversional activities 24. Educate patient and patient artists' booking representative how to maintain a safe environment during visitation times (notify nurse prior to leaving bedside) 25. Consider appropriateness of medical or non-medical chemist 26. Set up voiding schedule as appropriate (every 2 hours) Outcome: Progressing Note: Evaluation of progress towards goal: patient remains free of injury & verbalizes understanding of fall prevention; call light in reach [facility] [employer] 07-10-2024 Progress note Formatting of t his note might be different from the original. DISCHARGE PLANNING NOTE Per RN during discharge transition rounds, barriers to discharge are: MRI with sedation today, LP with sedation today, restraints removed after procedures today, assess as needed for restraints, re-consult psych. Discharge Plan: [facility]. CN discussed case with colin [facility] Registry Rn will continue to follow for any discharge needs. - Lesia Caba RN 07/10/24 3:16 PM [facility] 07-10-2024 Plan of care note 07/10/24 1145: Evaluated patient after his procedures, he is calm at this time and currently not threat to himself or staff therefore we will discontinue violent restraints. He is though pulling at his lines and IV so will place bilateral soft wrist restraints. We will re-evaluate as needed Nichol Heath MD [facility] 07-10-2024 Nurse Note Patient still off unit at this time 11:58 s/p sedated MRI & LP procedure. Per neurologist, Dr Johnson, patient needs to remain flat 1-2hrs & may have regular diet. [employer] Supervisor awaiting patient return to unit & per report 1:1 sitter remains at patient bedside. [facility] 07-10-2024 Procedure note Associated Ord er(s): [...] to verify the correct patient, procedure, equipment, director of sales support and site/side marked as required. Anesthesia: local infiltration Anesthesia: Local Anesthetic: lidocaine 1% without epinephrine Sedation: Patient sedated: yes Lumbar space: L3-L4 interspace Patient's position: left lateral decubitus Opening pressure: 12 cm H2O Fluid appearance: clear Tubes of fluid: 4 Total volume: 17.5 ml Post-procedure: pressure dressing applied and adhesive bandage applied Procedure was completed Complications: none Arnulfo Haley MD PGY2 Neurology [facility] Cosigned by Zach Nails MD at 07/11/2024 12:41 AM EST Associated attestation - Zach Nails MD - 07/11/2024 12:41 AM EST Zach Nails MD Warrant Clerk Dept of Neurology [facility] 07-10-2024 Procedure note Associated Ord er(s): Lumbar Puncture Post-Procedure Diagnose(s): Dementia with behavioral disturbance ([facility]) PROCEDURE: Lumbar Puncture Date/Time: 07/10/2024 9:58 [...] to verify the correct patient, procedure, equipment, director of sales support and site/side marked as required. Anesthesia: local infiltration Anesthesia: Local Anesthetic: lidocaine 1% without epinephrine Sedation: Patient sedated: yes Lumbar space: L3-L4 interspace Patient's position: left lateral decubitus Opening pressure: 12 cm H2O Fluid appearance: clear Tubes of fluid: 4 Total volume: 17.5 ml Post-procedure: pressure dressing applied and adhesive bandage applied Procedure was completed Complications: none Arnulfo Haley MD PGY2 Neurology [facility] Cosigned by Zach Nails MD at 07/11/2024 12:41 AM EST Associated attestation - Zach Nails MD - 07/11/2024 12:41 AM EST Zach Nails MD Warrant Clerk Dept of Neurology [facility] documented in this encounter [facility] 07-10-2024 Nurse Note SPECIMENS X4 WERE COLLECTED, PROCESSED, AND SENT TO LAB BY DR. ARNULFO HALEY. [facility] 07-10-2024 Plan of care note Problem: Safety [...] at the bedside 7. Instruct patient/ patient artists' booking representative about use of safety devices 8. Include patient/ patient artists' booking representative in decisions related to safety Outcome: [...] hygiene technique. 7. Identify and instruct patient/patient artists' booking representative in use of appropriate isolation precautions for identified infection/symptoms. 8. Provide and discuss with patient/patient artists' booking representative on educational MDRO sheet. 9. Encourage and monitor nutritional status daily and consult pet trainer if indicated. 10. Implement neutropenic guidelines as needed. Outcome: Progressing Note: Evaluation of progress towards goal: Skin integrity remains in stable condition; remains w/o ss of infection, fever, pain, or increased discomfort. Problem: Knowledge Deficit Goal: Patient/patient artists' booking representative demonstrates understanding of disease process, treatment [...] - 24 or indicated by [facility] Assessment Goal: Patient should be free from fall Description: Interventions: 1. [place] to environment 2. Hourly rounds addressing the [...] non-skid footwear 11. Teach patient and patient artists' booking representative to maintain environment for safety and [...] Collaborate with ancillary departments 14. Include patient/patient artists' booking representative in decisions related to anxiety Outcome: [...] on patient's door 9. Provide patient/ patient artists' booking representative with isolation education. Outcome: Progressing Note: Evaluation of progress towards goal: Skin integrity remains in stable condition; remains w/o ss of infection, fever, pain, or increased discomfort. Problem: Moderate - High Risk Fall Score Description: Gallegos Fall Score of =/> 25 or indicated by [facility] Assessment Goal: Patient should be free from fall Description: Interventions: 1. [place] to environment 2. Hourly rounds addressing the [...] non-skid footwear 11. Teach patient and patient artists' booking representative to maintain environment for safety and [...] (cane, walker) within reach 19. Request patient artists' booking representative bring adaptive equipment/mobility aids from home or obtain and provide as needed 20. Consult pharmacy regarding effects of med's affecting mobility, cognition, and alternatives 21. Obtain physician order for PT if risk factors associated with mobility are present 22. Obtain physician order for OT as appropriate 23. Utilize diversional activities 24. Educate patient and patient artists' booking representative how to maintain a safe environment during visitation times (notify nurse prior to leaving bedside) 25. Consider appropriateness of medical or non-medical chemist 26. Set up voiding schedule as appropriate (every 2 hours) Outcome: Progressing Note: Evaluation of progress towards goal: Call light within reach. Remains free of fall or injury. Environment free of clutter. [facility] [employer] 07-09-2024 Progress note Formatting of t his note might be different from the original. BEHAVIORAL RESTRAINTS PROVIDER ONE HOUR [id number] EVALUATION NOTE Estella Jeffery was evaluated on [...] 07/10/24 0522 Jackson Peterson PA-C 07/10/24 0523 L[facility] [employer] 07-09-2024 Plan of care note Problem: Safety [...] at the bedside 7. Instruct patient/ patient artists' booking representative about use of safety devices 8. Include patient/ patient artists' booking representative in decisions related to safety Outcome: [...] hygiene technique. 7. Identify and instruct patient/patient artists' booking representative in use of appropriate isolation precautions for identified infection/symptoms. 8. Provide and discuss with patient/patient artists' booking representative on educational MDRO sheet. 9. Encourage and monitor nutritional status daily and consult pet trainer if indicated. 10. Implement neutropenic guidelines as needed. Outcome: Progressing Note: Evaluation of progress towards goal: patient remains afebrile at this time Problem: Knowledge Deficit Goal: Patient/patient artists' booking representative demonstrates understanding of disease process, treatment [...] - 24 or indicated by [facility] Assessment Goal: Patient should be free from fall Description: Interventions: 1. [place] to environment 2. Hourly rounds addressing the [...] non-skid footwear 11. Teach patient and patient artists' booking representative to maintain environment for safety and [...] Collaborate with ancillary departments 14. Include patient/patient artists' booking representative in decisions related to anxiety Outcome: [...] injury from restraints (Restraint for Interference with Secondary Set Up Man) Description: INTERVENTIONS: 1. Determine that other, less [...] Free from restraint(s) (Restraint for Interference with Secondary Set Up Man) Description: INTERVENTIONS: 1. ONCE/SHIFT or MINIMUM Q12H: [...] on patient's door 9. Provide patient/ patient artists' booking representative with isolation education. Outcome: Progressing Note: Evaluation of progress towards goal: patient remains afebrile at this time [facility] 07-09-2024 Progress note Formatting of t his note might be different from the original. DISCHARGE PLANNING NOTE Clinical updates including sent to. [address] (P# [phone] ; F# [phone]) via [employer] [facility] 07-09-2024 Progress note Formatting of t [...] . Thank you, Ethel Bueno RN, PRADEEP [email or web address] The patient's Clinical Indicators include: As above CDI RESPONSE TEXT: Patient has progression of dementia causing agitation, no evidence of metabolic or toxic encephalopathy. Query created by: Ethel Bueno on 07/09/2024 5:42 AM Electronically signed by: Lonnie Baker MD 07/09/2024 3:22 PM [facility] [employer] 07-09-2024 Progress note Formatting of t his note might be different from the original. DISCHARGE PLANNING NOTE Referral sent to [facility] (P# [phone] ; F# [phone]) via [employer] [facility] [employer] 07-09-2024 Progress note Formatting of t his [...] patient to return home. Psych SW following. Registry Rn will continue to follow for any discharge needs. - Lesia Caba RN 07/09/24 1:11 PM [facility] Plan of care note Problem: Safety [...] at the bedside 7. Instruct patient/ patient artists' booking representative about use of safety devices 8. Include patient/ patient artists' booking representative in decisions related to safety Outcome: [...] hygiene technique. 7. Identify and instruct patient/patient artists' booking representative in use of appropriate isolation precautions for identified infection/symptoms. 8. Provide and discuss with patient/patient artists' booking representative on educational MDRO sheet. 9. Encourage and monitor nutritional status daily and consult pet trainer if indicated. 10. Implement neutropenic guidelines as needed. Outcome: Progressing Note: Evaluation of progress towards goal: monitor s/s of infection Problem: Knowledge Deficit Goal: Patient/patient artists' booking representative demonstrates understanding of disease process, treatment [...] - 24 or indicated by [facility] Assessment Goal: Patient should be free from fall Description: Interventions: 1. [place] to environment 2. Hourly rounds addressing the [...] non-skid footwear 11. Teach patient and patient artists' booking representative to maintain environment for safety and [...] Collaborate with ancillary departments 14. Include patient/patient artists' booking representative in decisions related to anxiety Outcome: [...] injury from restraints (Restraint for Interference with Secondary Set Up Man) Description: INTERVENTIONS: 1. Determine that other, less [...] Free from restraint(s) (Restraint for Interference with Secondary Set Up Man) Description: INTERVENTIONS: 1. ONCE/SHIFT or MINIMUM Q12H: [...] goal: fall precautions in place, hourly rounding [facility] 07-08-2024 Progress note Formatting of t his note might be different from the original. BEHAVIORAL RESTRAINTS PROVIDER ONE HOUR [id number] EVALUATION NOTE Estella Jeffery was evaluated on [...] and others. Jackson Peterson PA-C 07/09/24 0344 [employer] 07-08-2024 Progress note Formatting of t his note might be different from the original. [facility] NIGHT BEHAVIORAL RESTRAINTS PROVIDER ONE HOUR [id number] EVALUATION NOTE Estella R. Jeffery was evaluated on 07/08/2023 at 0441. [...] and others. Jackson Peterson PA-C 07/08/24 0446 [facility] 07-08-2024 Plan of care note Problem: [...] at the bedside 7. Instruct patient/ patient artists' booking representative about use of safety devices 8. Include patient/ patient artists' booking representative in decisions related to safety Outcome: [...] hygiene technique. 7. Identify and instruct patient/patient artists' booking representative in use of appropriate isolation precautions for identified infection/symptoms. 8. Provide and discuss with patient/patient artists' booking representative on educational MDRO sheet. 9. Encourage and monitor nutritional status daily and consult pet trainer if indicated. 10. Implement neutropenic guidelines as needed. Outcome: Progressing Note: Evaluation of progress towards goal: Patient has no infection at this time. Problem: Knowledge Deficit Goal: Patient/patient artists' booking representative demonstrates understanding of disease process, treatment [...] - 24 or indicated by [facility] Assessment Goal: Patient should be free from fall Description: Interventions: 1. [place] to environment 2. Hourly rounds addressing the [...] non-skid footwear 11. Teach patient and patient artists' booking representative to maintain environment for safety and [...] Collaborate with ancillary departments 14. Include patient/patient artists' booking representative in decisions related to anxiety Outcome: Progressing Note: Evaluation of progress towards goal: Patient is able to manage anxiety level at this time, plan of care still ongoing. [facility] 07-07-2024 Plan of care note Problem: [...] at the bedside 7. Instruct patient/ patient artists' booking representative about use of safety devices 8. Include patient/ patient artists' booking representative in decisions related to safety Outcome: [...] hygiene technique. 7. Identify and instruct patient/patient artists' booking representative in use of appropriate isolation precautions for identified infection/symptoms. 8. Provide and discuss with patient/patient artists' booking representative on educational MDRO sheet. 9. Encourage and monitor nutritional status daily and consult pet trainer if indicated. 10. Implement neutropenic guidelines as needed. Outcome: Progressing Note: Evaluation of progress towards goal: monitor s/s of infection, monitor labs, standard precautions Problem: Knowledge Deficit Goal: Patient/patient artists' booking representative demonstrates understanding of disease process, treatment [...] - 24 or indicated by [facility] Assessment Goal: Patient should be free from fall Description: Interventions: 1. [place] to environment 2. Hourly rounds addressing the [...] non-skid footwear 11. Teach patient and patient artists' booking representative to maintain environment for safety and engage in all aspects of fall prevention program Outcome: Progressing Note: Evaluation of progress towards goal: fall precautions in place, hourly rounding, call light within reach [facility] [employer] [facility] 07-07-2024 Progress note Formatting of t his [...] by: Elana Valerio MD 07/07/2024 7:10 AM [facility] 07-06-2024 Plan of care note Problem: [...] at the bedside 7. Instruct patient/ patient artists' booking representative about use of safety devices 8. Include patient/ patient artists' booking representative in decisions related to safety Outcome: [...] hygiene technique. 7. Identify and instruct patient/patient artists' booking representative in use of appropriate isolation precautions for identified infection/symptoms. 8. Provide and discuss with patient/patient artists' booking representative on educational MDRO sheet. 9. Encourage and monitor nutritional status daily and consult pet trainer if indicated. 10. Implement neutropenic guidelines as needed. Outcome: Progressing Note: Evaluation of progress towards goal: Patient remains free of any signs of infection. Signs and symptoms being monitor such as fevers, chills, warm/red areas. Problem: Knowledge Deficit Goal: Patient/patient artists' booking representative demonstrates understanding of disease process, treatment [...] - 24 or indicated by [facility] Assessment Goal: Patient should be free from fall Description: Interventions: 1. [place] to environment 2. Hourly rounds addressing the [...] non-skid footwear 11. Teach patient and patient artists' booking representative to maintain environment for safety and [...] Description: INTERVENTIONS: 1. Encourage patient or legal artists' booking representative to report early pain and ask [...] per policy 9. Teach patient or legal artists' booking representative interventions for comforting Outcome: Completed Note: Evaluation of progress towards goal: Patient has no complaints of pain. Reassessed per policy. [facility] 07-06-2024 Progress note Formatting of t his note might be different from the original. An attempt was made to interview the patient today in the presence of his . The patient refused and asked the story writer to leave stating that he does not want a psychiatric evaluation. Psychiatry will sign off. [facility] Work Phone: 07-06-2024 Progress note Formatting of t his note is different from the original. Images from the original note were not included. DISCHARGE PLANNING NOTE [employer] Supervisor met with patient, introduced self, and explained [...] medication assistance resources. PCP: JAE LOPEZ MD Pharmacy:[facility] PCP and pharmacy confirmed with patient. CN [...] - Jac Austin RN 07/06/24 4:01 PM [employer] 07-06-2024 Progress note Formatting of t his note might be different from the original. Called spouse and left message. Will await call back. - NANCY Martines 07/06/24 3:25 PM [employer] 07-06-2024 Progress note Formatting of t his [...] spouse. - NANCY Martines 07/06/24 11:02 AM [employer] 07-06-2024 Consult note Associated Order (s): IP CONSULT TO NEUROLOGY Images from the original note were not included. [facility] Neurology General Neurology Consult Note Primary Neurology service: [phone] Chief Complaint: HPI: Estella Jeffery is a [...] with complete remission. He follows up with [facility] Neurology and had underwent a [...] decline, Patient had presented to ED in [place] June 18 after waking up not oriented and delusional. Then June 25 he woke up again not knowing where he is delusional thinking his sister was an intruder so he was brought to [facility] and discharged later that evening. He was seen by child protective services social worker referred to a mental health center and per family his mental status had worsened and they felt he was being overmedicated with Benadryl. 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 The impression there was no infectious or metabolic etiology so patient was transferred to [facility] for higher level of care. On my evaluation patient was restless fidgeting and did not allow me to speak him or enter the room, he would tell me his family members names what refused to tell me his name asked me to leave the room. I could not do any assessment [place] test or neurological exam. Per family patient [...] markers confirmed early onset Alzheimer's established in [facility] October 2022 in addition to hyperlipidemia, GERD, dm 2. Patient was transferred found [facility] for higher level of care and workup of sharp decline in cognition since May 2024. Patient had presented multiple times to the ED and admitted [facility] for delusional thinking/hallucinations/agitatio n. On evaluation [...] once reconciled. Elana Valerio MD PGY-1 Neurology [facility] 07/06/24 9:[address] Sofia This patient is being followed by the Neurology Resident service. Contact attending directly during these hours: Tuesday to 7:30-8:30 A.M. to Tuesday 12-1:00 p.m. Primary Neurology service: [phone] Consult neurology service: [phone] Resident Stroke Service: [phone] If the patient belongs to the Stroke [facility]SH[facility] service please contact the Stroke ASHLEE directly. Cosigned by Kelley Sofia MD at 07/06/2024 11:32 PM EST Associated attestation - Kelley Sofia MD - 07/06/2024 11:32 PM EST Kelley Sofia MD Neurology [facility] 07-06-2024 History and physical note Images from the original note were not included. [facility] Hospitalists History and Physical 07/06/2024 [...] dementia, GERD, perforated colon who presents to [facility] as a transfer from [place] for neurologic evaluation. History obtained from sister [...] 11/24/2019 Performed by Skyler Bowen MD at [facility] [place] 3YEARS AGO COLOSTOMY CLOSURE Allergy: Diphenhydramine Prior to Admission medications Medication Sig Start Date End Date Taking? Authorizing Provider aspirin 81 mg Take 1 tablet (81 mg total) by mouth daily. Patient not taking: Reported on 05/06/2020 11/26/19 Kathia Gabriel APRN-CITY CONTROLLER [employer]STYLE 28 gauge lancets 09/07/18 Not In [...] via EMR. Nichol Heath MD [facility] 07-06-2024 History and physical note Images from the original note were not included. [facility] Hospitalists History and Physical 07/06/2024 [...] Chief Complaint No chief complaint on file. [facility] Estella Jeffery is a 58 y.o. male past medical history of early-onset dementia, GERD, perforated colon who presents to [facility] as a transfer from [place] for neurologic evaluation. History obtained from sister [...] 11/24/2019 Performed by Skyler Bowen MD at [facility] [place] 3YEARS AGO COLOSTOMY CLOSURE Allergy: Diphenhydramine Prior [...] MD documented in this encounter [facility] 06-26-2024 Note Progress Note-Nurse Attempted to call office due to family requesting additional lab work (PSA level). There was no answer at the office and no option to leave voicemail. Intrusted family to call later on today to talk to Dr. Graham's project controls scheduler about obtained PSA level [facility] 03-09-2024 Telephone encounter Note I have refilled your prescription. A review of your chart shows that you have not had a follow up visit in more than 1 year. Refills for medications require at least 1 follow up visit per year. Please call: to schedule an appointment. Lisandra Gomez APRN.CNP [facility] 03-09-2024 Miscellaneous Notes I have refilled your prescription. A review of your chart shows that you have not had a follow up visit in more than 1 year. Refills for medications require at least 1 follow up visit per year. Please call: to schedule an appointment. Lisandra Gomez APRN.CNP documented in this encounter [facility] 01-11-2024 Hospital Discharge instructions Patient [...] treatment? Where to find more information The [place] Cancer Society: www.cancer.org [place] Urological Association: www.auanet.org Contact a health care [...] provider. Document Revised: 11/30/2021 Document Reviewed: 11/30/2021 LUMI Mask Patient Education 2022 [employer]. Follow Up Care 12/23/2023 09:42:08 With:Santos PEÑA, Danni Portillo, URL, URO Address: When: Unknown Comments:Pending MRI, may proceed with fusion bx [facility] 01-11-2024 Note Urology Office/Clini c Note [...] repair with mesh. -Will schedule MRI @ [facility] STAT. -Will schedule MRI [...] Biopsy of pro (more content not included)... [facility] Comment on above: Result Comment: Elec tronically [...] Where to find more information ? The [place] Cancer Society: www.cancer.org ? [place] Urological Association: www.auanet.org Contact a health care [...] of the rectum. (more content not included)... [facility] 12-06-2023 Telephone encounter Note The following approved medication requests have been transmitted electronically. Requested Prescriptions Signed Prescriptions Disp Refills donepezil (ARICEPT) 5 mg tablet 90 tablet 0 Sig: Take 1 tablet by mouth once daily. Authorizing Provider: AGUSTINA PLASCENCIA Ordering User: JESSICATANISHA MCKEON APRN.CNP [facility] 12-06-2023 Miscellaneous Notes The following approved medication requests have been transmitted electronically. Requested Prescriptions Signed Prescriptions Disp Refills donepezil (ARICEPT) 5 mg tablet 90 tablet 0 Sig: Take 1 tablet by mouth once daily. Authorizing Provider: AGUSTINA PLASCENCIA Ordering User: TANISHA JEFFERS APRN.CNP documented in this encounter [facility] 03-07-2023 Miscellaneous Notes Summary: [facility] Baseline Interest A voicemail was left about participation in [facility] research study. documented in this encounter [facility] 02-09-2023 Miscellaneous Notes [employer] message sent documented in this encounter [facility] 02-08-2023 Miscellaneous Notes Summary: [facility] Potential Participant A call was made to of patient to talk about interest in participating in [facility]. expressed interest in participating. The [facility] consent document was sent through email. A call will be made in a week to discuss enrollment. documented in this encounter [facility] 02-04-2023 Miscellaneous Notes Images from the original note were not included. documented in this encounter [facility] 02-02-2023 Miscellaneous Notes The following approved medication requests have been transmitted electronically. Requested Prescriptions Signed Prescriptions Disp Refills donepezil (ARICEPT) 5 mg tablet 90 tablet 1 Sig: TAKE 1 TABLET BY MOUTH EVERY DAY Authorizing Provider: AGUSTINA PLASCENCIA Ordering User: KIMO PATE APRN.CNP documented in this encounter [facility] 01-13-2023 Miscellaneous Notes Patient returned call, requested a call back. I left a message explaining the 4% requirement from Medicare, and advised to contact Medicare if they have insurance questions. Advised to call me back if they had other concerns or questions. Sonal Weinstein APRN.EFRAIN documented in this encounter [facility] 12-03-2022 Miscellaneous Notes Faxed order, office notes, demographics, and sleep study to: DME name: [facility] fax: [phone] DME ph: documented in this encounter [facility] 12-02-2022 History of Present illness Narrative Images from the original note were not included. [facility] Follow up/ [...] will have a prescription sent to a [employer] company - [employer] who will be calling you in the next 1-2 weeks or so. Please call them directly or us if you do not hear from them in this time frame. - You should be eligible for new supplies approximately every 3-6 months, depending on your insurance coverage. - If your mask doesn't fit well, call the [employer] company before 30 days are up to get a new mask without an additional charge. - Insurance requires regular usage and periodic office follow ups for PAP therapy, to continue to cover supplies. - Follow up in 2 months in the office. Recommend scheduling this appointment now to ensure the best time for you. Roosevelt Merlos PGY-4 Sleep fellow [facility] I have supervised and discussed the patient case with the Sleep Medicine Fellow including interviewing the patient in person and have updated the electronic medical record where necessary. I agree with the history, physical, impression and recommendations as documented. Gera Cardona DO, CBSM, ABSM Clinical Staff Sleep Medicine [facility] Neu[facility] [address] [place] [address] I have communicated my name and active licensure. The patient's identity and physical location were verified at the time of this visit. Either the patient or their legal artists' booking representative has been informed of the risks and benefits of -- and alternatives to -- treatment through a remote evaluation and consents to proceed with the evaluation remotely. Interval history : Here for follow up for SHELBY follow up after starting PAP therapy. ; SLEEP APNEA Sleep apnea type : SHELBY, Most Recent Apnea-Hypopnea Index (AHI): 47.7 Treatment : PAP therapy DME: [employer] PAP History: Uses Bilevel PAP for 2 [...] or near accidents due to drowsy drivin [place] Sleepiness Scale 04/28/2022 Score Incomplete PROMIS CAT [...] which included preparing to see the patient, [id number] patient care, completing clinical documentation, obtaining and/or reviewing separately obtained history, counseling and educating the patient/family/caregiver, ordering medications, tests, or procedures, and communicating results to the patient/family/caregiver. documented in this encounter [facility] 11-17-2022 Instructions Agustina Plascencia MD [...] are our recommendations: - Cognitive therapy at [facility]. - Aricept 5 mg daily with breakfast - Namenda 5 twice a day with breakfast and dinner. - Maintain physically, socially and cognitively healthy lifestyle. - Schedule in person report in February 2023. Please schedule next visit with Agustina Plascencia MD, PhD or Kimo Pate NP in person in February -March 2023 To schedule testing and visits please call: [phone]. If you have new, unexpected concerns in between visits please call our office at [phone] ( you will be able to reach one of our nurses). [facility] fax [phone] Ways to keep your brain healthy: Follow [...] fish and fish high in mercury (swordfish, Barbadian sea martinez, orange roughy, ahi tuna, albacore [...] resources are: The Alzheimer's Association (web site: alz.org/leonard) available 24 hours a day, 7 days per week. Contact: Local: ; Toll free: [phone] Family Caregiver [place] (web site: Caregiver.org) MARLEEN Hawkins-- a secure online solution for quality information, support, and resources for family caregivers. Contact: Toll-free number: 968.735.9843 Alzheimers.gov - Find Alzheimer disease and related dementias information, resources, research and more. documented in this encounter [facility] 11-17-2022 History of Present illness Narrative Images from the original note were not included. Estella Jeffery [address] [place] [id number] November 17, 2022 [facility] Report Virtual Virtual visit with Patient and family members Chief complaint: poor memory, forgetfulness I have communicated my name and active licensure. The patient's identity and physical location were verified at the time of this visit. Either the patient or their legal artists' booking representative has been informed of the risks [...] that time. 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 He recalls forgetting a clip/tie for his gun one day. He also failed firearm safety training which is required every months. He states he is still able to perform ADLs at home and still able to work in his other job with [employer]. 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 Bradycardia. PLAN: - [facility] referral - Cognitive therapy at [facility]. - Aricept 5 mg daily [...] . Agustina Plascencia MD, PhD Geriatric Psychiatry [facility] Brain Health CC: 1. No primary care provider on file., (fax) None documented in this encounter [facility] 10-12-2022 Nurse Note [facility] LUMBAR PUNCTURE NURSE DISCHARGE NOTE The [...] Tanisha Jeffers RN documented in this encounter [facility] 10-12-2022 Instructions Miguelito Chicas APRN.CITY CONTROLLER - 10/12/2022 10:31 AM EDT Images from the original note were not included. [facility] Neurological [place] GOING HOME INSTRUCTIONS POST LP HEADACHE Prevention [...] as coffee or tea You can take rhub-[id number] Tylenol and/or Ibuprofen as directed INFECTION PREVENTION [...] from 8-5pm, please contact our office line [phone] and then hit 0 , please ask our care administrative tech to page the provider who performed the spinal tap. -For nights or weekends, call or toll free and ask the multiple cut off saw operator the page the Neurology resident on-call. 2. If your headache is unusually severe regardless of bedrest or lasts more than two days 3. If you develop a fever 4. If you notice inflammation, pus formation or clear drainage from the site of the needle puncture You may resume your usual activities after 48 hours. documented in this encounter [facility] 10-12-2022 History of Present illness Narrative [facility] PROCEDURE FOR DIAGNOSTIC TESTING Estella Jeffery, [id number] October 12, 2022, 8:57 AM INFORMED CONSENT [...] October 12, 2022 documented in this encounter [facility] 08-12-2022 History of Present illness [...] Abs Lymph 1.00 - 4.00 k/uL 1.45 Vermillion% % 6.2 Abs Vermillion <0.87 k/uL 0.31 Eosin% % 0.6 Abs Eosin <0.46 k/uL 0.03 Baso% % 0.8 Abs Baso <0.11 k/uL 0.04 Immature Gran % % 0.2 IMMATURE GRANS (ABS) <0.10 k/uL <0.03 NRBC /100 WBC 0.0 Absolute nRBC <0.01 k/uL <0.01 [employer]TYPE Auto Care Coordination Interventions: none Leah Mckeon RN documented in this encounter [facility] 08-11-2022 Instructions Agustina Plascencia MD [...] To schedule testing and visits please call: [phone]. If you have new, unexpected concerns in between visits please call our office at [phone] ( you will be able to reach one of our nurses). [facility] fax [phone] Ways to keep your brain healthy: Follow [...] fish and fish high in mercury (swordfish, Barbadian sea martinez, orange roughy, ahi tuna, albacore [...] resources are: The Alzheimer's Association (web site: alz.org/leonard) available 24 hours a day, 7 days per week. Contact: Local: ; Toll free: 741.337.6558 Family Caregiver [place] (web site: Caregiver.org) MARLEEN Hawkins-- a secure online solution for quality information, support, and resources for family caregivers. Contact: Toll-free number: 200.593.3027 Alzheimers.gov - Find Alzheimer disease and related dementias information, resources, research and more. documented in this encounter [facility] 08-11-2022 History of Present illness Narrative Images from the original note were not included. Estella Jeffery [address] [place] [id number] August 11, 2022 Time: 2:35 PM [facility] OUTPATIENT VISIT TYPE New Patient Visit Virtual Virtual visit with Patient and family members Chief complaint: poor memory, forgetfulness SUBJECTIVE: Esetlla Jeffery is a 57 year old male [...] that time. 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 Agustina Plascencia MD, PhD Geriatric Psychiatry [facility] Brain Health CC: 1. No primary care provider on file., (fax) None documented in this encounter [facility] 07-22-2022 History of Present illness Narrative No show. Connection aborted after 15 min. of waiting online KGR documented in this encounter [facility] 05-07-2022 Miscellaneous Notes Radiology Service [...] DATA: Not applicable SIGNED BY: Nicole Huffman, analysis lead May 07, 2022 1:31 PM documented in this encounter [facility] 04-30-2022 Instructions Roosevelt Merlos MD [...] will have a prescription sent to a [employer] company - [employer] who will be calling you in the next 1-2 weeks or so. Please call them directly or us if you do not hear from them in this time frame. - You should be eligible for new supplies approximately every 3-6 months, depending on your insurance coverage. - If your mask doesn't fit well, call the [employer] company before 30 days are up to get a new mask without an additional charge. - Insurance requires regular usage and periodic office follow ups for PAP therapy, to continue to cover supplies. - Follow up in 2 months in the office. Recommend scheduling this appointment now to ensure the best time for you. CMS Requirements - Your insurance requires a [id number] follow up visit within a 31-90 day [...] for BiPAP supplies. documented in this encounter [facility] 04-30-2022 History of Present illness Narrative Images from the original note were not included. [facility] New Patient Evaluation PATIENT NAME: Estella Jeffery DATE OF SERVICE: April 30, 2022 CONSULTING PROVIDER: Narciso Guerra [id number] [facility] [id number] REASON FOR CONSULT: Narciso Guerra sends the [...] or near accidents due to drowsy drivin [place] Sleepiness Scale 04/28/2022 Score Incomplete PROMIS CAT [...] will have a prescription sent to a [employer] company - [employer] who will be calling you in the next 1-2 weeks or so. Please call them directly or us if you do not hear from them in this time frame. - You should be eligible for new supplies approximately every 3-6 months, depending on your insurance coverage. - If your mask doesn't fit well, call the [employer] company before 30 days are up to get a new mask without an additional charge. - Insurance requires regular usage and periodic office follow ups for PAP therapy, to continue to cover supplies. - Follow up in 2 months in the office. Recommend scheduling this appointment now to ensure the best time for you. Roosevelt Merlos PGY-4 Sleep fellow [facility] I have supervised and discussed the patient case with the Sleep Medicine Fellow including interviewing the patient in person and have updated the electronic medical record where necessary. I agree with the history, physical, impression and recommendations as documented. Gera Cardona DO, CBSM, ABSM Clinical Staff Sleep Medicine [facility] Neurological [facility] [address] [place] [address] [place] [address] documented in this encounter [facility] 04-26-2022 History of Present illness [...] Program (KP): KP was not completed in [facility] by patient and accepted Study type: Split Study-Polysomnogram with CPAP titration Adverse Event: No (If yes create a new abstract) SERS Event: No Comments: Patient was advised to follow up with their ordering provider regarding test results [employer] April 25, 2022 Standing PSG Orders signed in the last 90 days None Future PSG Orders signed in the last 90 days Ordered Auth. provider POLYSOMNOGRAM (PSG) [[id number]] 04/22/22 Narciso Guerra MD Assoc. diagnoses: Cognitive [...] 8:46 PM 04/25/2022 documented in this encounter [facility] 04-22-2022 History of Present illness Narrative [facility] [place] AUDIOLOGIC EVALUATION REPORT Name: Estella Jeffery CCF#: [id number] Date of Service: 04/22/2022 Date of : 1965 Age: [age] year old Referred by: Narciso Guerra [address] [facility] [address] Referred for: Evaluation of the cause of disorder of hearing, tinnitus, or balance. Referral documented: In an order in [facility] Patient's major complaints: Estella reported [...] evaluation of middle ear function. CPT code: 14853 RIGHT EAR: Tympanogram that was flat, with no identifiable peak and reduced TM mobility consistent with a conductive pathology (wax). LEFT EAR: Normal ME pressure and TM compliance (mobility). ACOUSTIC REFLEXES Description of procedure: This test is an objective measure of auditory and facial nerve pathways. CPT code: 50855, 72280 RIGHT EAR PROBE EAR: (ipsi right stimulus [...] bone conduction and speech recognition testing. CPT code:91290 RIGHT EAR: Hearing Sensitivity: Did not test. Word Recognition Score: Did not test. LEFT EAR: Hearing Sensitivity: Did not test. Word Recognition Score: Did not test. RECOMMENDATIONS Medical follow up for removal of bilateral impacted cerumen. Patient will see [facility] today. Hearing Test after #1. Juana Horta, CCC/A Clinical Mathematical Technician JIMENEZ Abbrev- iation Definition Degree of hearing sensitivity dB range WNL within normal limits WNL 0 - 20 SNHL sensorineural hearing loss Mild 20-40 CHL conductive hearing loss Moderate 40-55 MHL mixed hearing loss Moderately-Severe 55-70 WRS word recognition score Severe 70-90 ME middle ear Profound 90 + TM tympanic membrane documented in this encounter [facility] 04-22-2022 History of Present illness Narrative This note was created using [employer]. Subjective Estella Jeffery is a 56 year [...] externa of left ear, unspecified type Plan: hwhmkwdx-kmvxtpmbc-lknrxrljxuayk e (CORTISPORIN) 3.5-10,000-1 mg/mL-unit/mL-% otic suspension Use as directed Follow up with PCP if symptoms worsen or do not improve Brenda Blanco APRN.EFRAIN April 22, 2022 documented in this encounter [facility] 04-22-2022 Instructions Brenda Blanco APRN.EFRAIN [...] made for swimming. documented in this encounter [facility] 07-27-2020 Note MR#: [id number] [facility] Pt. Name: Estella Jeffery Admitted: 07/24/2020 Discharged: [...] Ga MD Date Trans: 07/27/2020 03:32 A/patricia DN_JN:[id number] cc: Jae Lopez M.D. [address] [place] [address] [facility] 07-24-2020 Note MR#: [id number] [facility] Pt. Name: Jeffery Estella R Admitted: 07/21/2020 Discharged: 07/23/2020 Date of : [...] Ga MD Date Trans: 07/24/2020 10:00 A/patricia DN_JN:[id number] cc: Jae Lopez M.D. [address] [place] [address] [facility] Evaluation + Plan note No data available for this section [facility] Evaluation + Plan note Future Appointments Appointment Date:06/26/2024 12:00:00 PM Scheduled Provider: Location:[facility] Surgical Services Appointment Type:Surgery FT Appointment Date:07/11/2024 11:15:00 AM Scheduled Provider:Danni Graham MD Location:[facility] Appointment Type:URO Office Visit [facility] Evaluation + Plan note Future Appointments Appointment Date:07/11/2024 11:15:00 AM Scheduled Provider:Danni Graham MD Location:[facility] Appointment Type:URO Office Visit [facility] Evaluation note Diagnosis Bilateral impacted cerumen- Primary Impacted cerumen Elevated blood pressure reading without diagnosis of hypertension Acute otitis externa of left ear, unspecified type [facility] Diagnosis Bilateral impacted cerumen- Primary Impacted cerumen documented in this encounter [facility] note* Diagnosis Sleep apnea, unspecified type- Primary Sleep hypopnea Other sleep disturbances documented in this encounter [facility] note* Diagnosis SHELBY (obstructive sleep apnea)- Primary Obstructive sleep apnea (adult) (pediatric) documented in this encounter [facility] note* Diagnosis Memory loss documented in this encounter [facility] note* Diagnosis Memory loss- Primary [facility]* Diagnosis Memory loss- Primary Encounter for lumbar puncture [facility]* Diagnosis Alzheimer's disease (HCC)- Primary Alzheimer's disease documented in this encounter [facility] note* Diagnosis Obstructive sleep apnea- Primary Obstructive sleep apnea (adult) (pediatric) Primary central sleep apnea Hyperlipidemia, unspecified hyperlipidemia type documented in this encounter [facility] note* Diagnosis Alzheimer's disease (HCC)- Primary Alzheimer's disease documented in this encounter [facility] note* Diagnosis Research study patient- Primary [facility]* Diagnosis Cognitive changes Other signs and symptoms involving cognition [facility]* Diagnosis Alzheimer's disease (HCC) Alzheimer's disease [facility]* Diagnosis Alzheimer's disease (HCC) Alzheimer's disease [facility] noteNo assessment information availablePike [facility] Work Phone: Evaluation note* Diagnosis Dementia with behavioral disturbance (CMS-HCC)- Primary Dementia with behavioral disturbance (CMS-HCC) Status post colostomy, follow-up exam (CMS-HCC) Follow-up examination, following unspecified surgery Altered mental status Status post colostomy, follow-up exam (CMS-HCC) Follow-up examination, following unspecified surgery [facility]* Diagnosis History of traumatic brain injury- Primary Personal history of traumatic brain injury Dementia, unspecified dementia severity, unspecified dementia type, unspecified whether behavioral, psychotic, or mood disturbance or anxiety (HCC) Cognitive deficits Unspecified persistent mental disorders due to conditions classified elsewhere Impaired mobility and ADLs Other ill-defined conditions 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) [facility]* Diagnosis 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 Episode of confusion [facility]* Diagnosis Orthostatic hypotension- Primary Bradycardia Other specified cardiac dysrhythmias [facility]* Diagnosis Dementia with behavioral disturbance (CMS-HCC)- Primary [facility] Discharge instructions No data available for this section [facility] InstructionsNot on filedocumented in this encounter [facility] SystemInstructions* Attachments The following attachments cannot be sent through Care Everywhere. * Caring for someone with Alzheimer disease or dementia (Lao) documented in [facility] SystemInstructionsNot on file documented in this encounterProMediak Health SystemInstructionsNot on file documented in this encounterProMediak [facility] SystemInstructionsNot on file documented in this encounterProMedica Health SystemProgress note No data available for this section [facility] Janice reason for visit Narrative* Auth/Cert (Routine) Specialty Diagnoses / Procedures Referred By Naseem t Referred To Contact Diagnoses Dementia with behavioral disturbance (CMS-HCC) At risk for long QT syndrome Altered mental status Altered Mental Status Nichol Heath MD [address] [place] [address], [address] [place] [address] Phone: tel: fax: Referral ID Status Reason Start Date Expiration Date Visits Re quested Visits Authorized [id number] 1 1 [facility] Summary Purpose Family History No Family [...] Records Found Date Activated Date Inactivated Comments 10/19/2024 7:19 [...] CONSULT TO SLEEP MEDICINE - ADULT OFFICE/OUTPATIENT [facility] 60-74 MINUTES Narciso Guerra MD [address] [place] [address] Referral ID Status Reason Start Date Expiration Date Visits Requested Visits Authorized [id number] Authorized PCP Requested Referral 04/28/2022 04/28/2023 1 1 Specialty Diagnoses / Procedures Referred By Naseem t Referred To Contact [facility] Diagnoses Alzheimer's disease (HCC) Procedures CONSULT TO SPEECH THERAPY OFFICE/OUTPATIENT [facility] 60-74 MINUTES Agustina Plascencia MD [id number] [facility] [place] [address] Referral ID Status Reason Start Date Expiration Date Visits Requested Visits Authorized [id number] Pending Review Auto-Generat ed Referral 11/17/2022 11/17/2023 1 1 Specialty Diagnoses / Procedures Referred By Naseem araujo Referred To Contact [facility] IMAGING Diagnoses Cognitive changes Procedures MRI 3D POST PROCESSING 3D RENDERING W/INTERP&POSTPROC DIFF WORK STATION Narciso Guerra MD [address] [place] [address] Mr Imaging [place] [address] Referral ID Status Reason Start Date Expiration Date V isits Requested Visits Authorized [id number] Closed Auto-Generate d Referral 04/22/2022 05/22/2023 1 1 Specialty Diagnoses / Procedures Referred By Naseem araujo Referred To Contact MR IMAGING Diagnoses Cognitive changes Procedures MRI BRAIN WO IVCON MRI BRAIN BRAIN STEM W/O CONTRAST MATERIAL Narciso Guerra MD [address] [place] [address] Mr Imaging [id number] Referral ID Status Reason Start Date Expiration Date V isits Requested Visits Authorized [id number] Closed Auto-Generate d Referral 04/22/2022 06/06/2022 1 [...] section and content) DATE CREATED AUTHOR 04/15/2021 [facility] DATE CREATED AUTHOR AUTHOR'S ORGANIZ ATION 05/09/2022 [facility] DATE CREATED AUTHOR AUTHOR'S ORGANIZ ATION 10/28/2022 [facility] DATE CREATED AUTHOR AUTHOR'S ORGANIZ ATION 06/28/2024 [facility] DATE CREATED AUTHOR AUTHOR'S ORGANIZ ATION 07/01/[address] [facility] DATE CREATED AUTHOR AUTHOR'S ORGANIZ ATION 07/04/2024 [facility] DATE CREATED AUTHOR AUTHOR'S ORGANIZ ATION 07/22/2024 [facility] DATE CREATED AUTHOR AUTHOR'S ORGANIZ ATION 08/05/2024 [facility] DATE CREATED AUTHOR AUTHOR'S ORGANIZ ATION 11/02/2024 [facility] DATE CREATED AUTHOR AUTHOR'S ORGANIZ ATION 11/08/2024 [facility] DATE CREATED AUTHOR AUTHOR'S ORGANIZ ATION 11/18/2024 [facility] DATE CREATED AUTHOR AUTHOR'S ORGANIZ ATION 02/17/2025 [facility] Comments (unrecognize d section and content) In the event this informatio n is protected by the Federal Confidentiality of Alcohol and Drug Abuse Patient Records regulations: The Federal rules restrict any use of the information to criminally investigate or prosecute any alcohol or drug abuse patient.[facility] the event this information is protected by the Federal Confidentiality of Alcohol and Drug Abuse Patient Records regulations: The Federal rules restrict any use of the information to criminally investigate or prosecute any alcohol or drug abuse patient.[facility] Hospital[facility] the event this information is protected by the Federal Confidentiality of Alcohol and Drug Abuse Patient Records regulations: The Federal rules restrict any use of the information to criminally investigate or prosecute any alcohol or drug abuse patient.[facility] HospitalIn the event this information is protected by the Federal Confidentiality of Alcohol and Drug Abuse Patient Records regulations: The Federal rules restrict any use of the information to criminally investigate or prosecute any alcohol or drug abuse patient.[facility] HospitalIn the event this information is protected by the Federal Confidentiality of Alcohol and Drug Abuse Patient Records regulations: The Federal rules restrict any use of the information to criminally investigate or prosecute any alcohol or drug abuse patient.[facility] HospitalIn the event this information is protected by the Federal Confidentiality of Alcohol and Drug Abuse Patient Records regulations: The Federal rules restrict any use of the information to criminally investigate or prosecute any alcohol or drug abuse patient.[facility] HospitalIn the event this information is protected by the Federal Confidentiality of Alcohol and Drug Abuse Patient Records regulations: The Federal rules restrict any use of the information to criminally investigate or prosecute any alcohol or drug abuse patient.[facility] HospitalIn the event this information is protected by the Federal Confidentiality of Alcohol and Drug Abuse Patient Records regulations: The Federal rules restrict any use of the information to criminally investigate or prosecute any alcohol or drug abuse patient.[facility] HospitalIn the event this information is protected by the Federal Confidentiality of Alcohol and Drug Abuse Patient Records regulations: The Federal rules restrict any use of the information to criminally investigate or prosecute any alcohol or drug abuse patient.[facility] HospitalIn the event this information is protected by the Federal Confidentiality of Alcohol and Drug Abuse Patient Records regulations: The Federal rules restrict any use of the information to criminally investigate or prosecute any alcohol or drug abuse patient.[facility] HospitalIn the event this information is protected by the Federal Confidentiality of Alcohol and Drug Abuse Patient Records regulations: The Federal rules restrict any use of the information to criminally investigate or prosecute any alcohol or drug abuse patient.[facility] HospitalIn the event this information is protected by the Federal Confidentiality of Alcohol and Drug Abuse Patient Records regulations: The Federal rules restrict any use of the information to criminally investigate or prosecute any alcohol or drug abuse patient.[facility] HospitalIn the event this information is protected by the Federal Confidentiality of Alcohol and Drug Abuse Patient Records regulations: The Federal rules restrict any use of the information to criminally investigate or prosecute any alcohol or drug abuse patient.[facility] HospitalIn the event this information is protected by the Federal Confidentiality of Alcohol and Drug Abuse Patient Records regulations: The Federal rules restrict any use of the information to criminally investigate or prosecute any alcohol or drug abuse patient.[facility] HospitalIn the event this information is protected by the Federal Confidentiality of Alcohol and Drug Abuse Patient Records regulations: The Federal rules restrict any use of the information to criminally investigate or prosecute any alcohol or drug abuse patient.[facility] HospitalIn the event this information is protected by the Federal Confidentiality of Alcohol and Drug Abuse Patient Records regulations: The Federal rules restrict any use of the information to criminally investigate or prosecute any alcohol or drug abuse patient.[facility] HospitalIn the event this information is protected by the Federal Confidentiality of Alcohol and Drug Abuse Patient Records regulations: The Federal rules restrict any use of the information to criminally investigate or prosecute any alcohol or drug abuse patient.[facility] HospitalIn the event this information is protected by the Federal Confidentiality of Alcohol and Drug Abuse Patient Records regulations: The Federal rules restrict any use of the information to criminally investigate or prosecute any alcohol or drug abuse patient.[facility] HospitalIn the event this information is protected by the Federal Confidentiality of Alcohol and Drug Abuse Patient Records regulations: The Federal rules restrict any use of the information to criminally investigate or prosecute any alcohol or drug abuse patient.[facility] HospitalIn the event this information is protected by the Federal Confidentiality of Alcohol and Drug Abuse Patient Records regulations: The Federal rules restrict any use of the information to criminally investigate or prosecute any alcohol or drug abuse patient.[facility] HospitalIn the event this information is protected by the Federal Confidentiality of Alcohol and Drug Abuse Patient Records regulations: The Federal rules restrict any use of the information to criminally investigate or prosecute any alcohol or drug abuse patient.[facility] HospitalIn the event this information is protected by the Federal Confidentiality of Alcohol and Drug Abuse Patient Records regulations: The Federal rules restrict any use of the information to criminally investigate or prosecute any alcohol or drug abuse patient.[facility] HospitalIn the event this information is protected by the Federal Confidentiality of Alcohol and Drug Abuse Patient Records regulations: The Federal rules restrict any use of the information to criminally investigate or prosecute any alcohol or drug abuse patient.[facility] HospitalIn the event this information is protected by the Federal Confidentiality of Alcohol and Drug Abuse Patient Records regulations: The Federal rules restrict any use of the information to criminally investigate or prosecute any alcohol or drug abuse patient.[facility] HospitalIn the event this information is protected by the Federal Confidentiality of Alcohol and Drug Abuse Patient Records regulations: The Federal rules restrict any use of the information to criminally investigate or prosecute any alcohol or drug abuse patient.[facility] HospitalIn the event this information is protected by the Federal Confidentiality of Alcohol and Drug Abuse Patient Records regulations: The Federal rules restrict any use of the information to criminally investigate or prosecute any alcohol or drug abuse patient.[facility] HospitalIn the event this information is protected by the Federal Confidentiality of Alcohol and Drug Abuse Patient Records regulations: The Federal rules restrict any use of the information to criminally investigate or prosecute any alcohol or drug abuse patient.[facility] HospitalIn the event this information is protected by the Federal Confidentiality of Alcohol and Drug Abuse Patient Records regulations: The Federal rules restrict any use of the information to criminally investigate or prosecute any alcohol or drug abuse patient.[facility] HospitalIn the event this information is protected by the Federal Confidentiality of Alcohol and Drug Abuse Patient Records regulations: The Federal rules restrict any use of the information to criminally investigate or prosecute any alcohol or drug abuse patient.[facility] HospitalIn the event this information is protected by the Federal Confidentiality of Alcohol and Drug Abuse Patient Records regulations: The Federal rules restrict any use of the information to criminally investigate or prosecute any alcohol or drug abuse patient.[facility] Reason for Visit (unrecogniz ed section and content) Reason Comments Earwax Bilateral ear Specialty Diagnoses / Procedures Referred By Naseem araujo Referred To Contact Diagnoses Bilateral hearing loss, unspecified hearing loss type Procedures HEARING TEST/AUDIOGRAM COMPRE AUDIOMETRY THRESHOLD EVAL SP RECOGNIJ Narciso Guerra MD [address] [place] [address] [facility] [address] [place] [address] Referral ID Status Reason Start Date Expiration Date V isits Requested Visits Authorized [id number] Closed Auto-Generate d Referral 04/22/2022 07/21/2022 1 1 Reason Comments New Patient Evaluation Had sleep study d one. Specialty Diagnoses / Procedures Referred By Naseem araujo Referred To Contact Diagnoses Sleep apnea, unspecified type Sleep hypopnea Procedures CONSULT TO SLEEP MEDICINE - ADULT OFFICE/OUTPATIENT NEW HIGH MDM 60-74 MINUTES Narciso Guerra MD [address] [place] [address] Referral ID Status Reason Start Date Expiration Date V isits Requested Visits Authorized [id number] Closed PCP Requested Referral 04/28/2022 04/28/2023 1 1 Reason Comments Memory Loss Specialty Diagnoses / Procedures Referred By Naseem t Referred To Contact Neurology Diagnoses Memory loss Procedures CONSULT TO NEUROLOGY OFFICE/OUTPATIENT NEW HIGH MDM 60-74 MINUTES Narciso Guerra MD [address] [id number] Referral ID Status Reason Start Date Expiration Date V isits Requested Visits Authorized [id number] Closed PCP Requested Referral 06/22/2022 06/22/2023 1 [...] W/O CONTRAST MATERIAL Narciso Guerra MD [address] [place] [address] Mr Imaging [place] [address] Referral ID Status Reason Start Date Expiration Date V isits Requested Visits Authorized [id number] Closed Auto-Generate d Referral 04/22/2022 06/06/2022 1 [...] March 15, 2024 End: March 15, 2024 Scourer Relationship Specialty Start Date End Date Jae Lopez MD PCP - General 03/27/18 Scourer Relationship Specialty Start Date End Date Jae Lopez MD PCP - General 03/27/18 Scourer Relationship Specialty Start Date End Date Jae Lopez MD PCP - General 03/27/18 Scourer Relationship Specialty Start Date End Date Jae Lopez MD PCP - General 03/27/18 Scourer Relationship Specialty Start Date End Date Jae Lopez MD PCP - General 03/27/18 Scourer Relationship Specialty Start Date End Date Jae [...] 2138 (Given - Provider: Claribel Amato RN) 2199 (Due) doxycycline (VIBRAMYCIN) capsule 100 mg (COMPLETED) [...] Faye)2255 (Given - Provider: Claribel Amato RN) 940 (Given - Provider: Neela Beaver RN)2137 (Given - Provider: Claribel Amato RN) DULoxetine (CYMBALTA) DR capsule 20 mg 20 mg, oral, Daily, First dose on Tue07/06/24 at 0900, Look-alike/sound-alike medication - verify indication for use. Swallow whole-do not crush or chew. Although the spout positioner does not recommend opening the capsule, the [...] (after last modification) on Tue07/20/24 at 2200 2255 (Given - Provider: Claribel Amato RN) [...] Lorna Faye - Reason: Loss of IV access)2099 (Not Given - Provider: Claribel Amato RN - Reason: Loss of IV access) 09 (Not Given - Provider: Neela Beaver RN - Reason: Loss of IV access)2099 (Not Given - Provider: Claribel Amato RN - Reason: Loss of IV access) 09 (Not Given - Provider: Ethel Martinez RN [...] BE BASED ON THE PRIMARY CLINICAL RECORDS. [email or web address] provides no warranty or guarantee of the accuracy or completeness of information in this document.
--- NOTE | 2025-02-19 08:40 | ED.GENADUL1 ---
HPI HPI - General Adult General Chief complaint: Seizure Stated complaint: SEIZURE WEAKNESS Time Seen by Provider: 02/19/25 08:06 Source: patient Mode of arrival: ambulance Limitations: language barrier and physical limitation Limitations comment: hx tbi History of Present Illness HPI narrative: Patient is a 59-year-old male presenting to the emergency department via EMS from home for concerns of a seizure. Patient is nonverbal at baseline secondary to previous TBI 1 year ago after a fall downstairs. According to the , who is the DPOA, she was giving the patient medications this morning when he had a 1 minute seizure that spontaneous resolved. She described as full body shaking. He did not sustain any injuries at this time. She states that this happened to him a couple weeks ago when he was admitted to the hospital. He had an EEG, head CT, and other workups that were all normal. During his admission, he was taken off the Depakote for low platelets. He was then discharged on Trileptal, however his psychiatrist recommended against this, and has not been on any antiseizure medication since. He was also discharged with a Holter monitor, however they state they have a hard time keeping it on because the patient keeps ripping it off. Previous to his seizure episode today, he has otherwise been in his normal state of health. Denies any concern for infection or other acute issues. Deny any falls or injuries. Related Data Home Medications ?Medication ?Instructions ?Recorded ?Confirmed quetiapine 50 mg tablet 50 mg PO BID 08/09/24 02/19/25 Held on 02/19/25. Instructions: changed med list midodrine 2.5 mg tablet 2.5 mg PO BID 02/06/25 02/19/25 pantoprazole 40 mg tablet,delayed 40 mg PO .acb 02/06/25 02/19/25 release Held on 02/19/25. Instructions: changed med list duloxetine 30 mg capsule,delayed 30 mg PO BID 02/07/25 02/19/25 release risperidone 0.5 mg tablet mg 02/19/25 trazodone 50 mg tablet mg 02/19/25 Previous Rx's ?Medication ?Instructions ?Recorded donepezil 10 mg tablet 10 mg PO QHS #30 tabs 08/11/24 Held on 02/19/25. Instructions: changed med list melatonin 10 mg capsule 10 mg PO DAILY #30 caps 08/11/24 folic acid 1 mg tablet 1 mg PO QD #60 tabs 02/08/25 oxcarbazepine 150 mg tablet 150 mg PO DAILY #30 tabs 02/08/25 (Trileptal) Held on 02/19/25. Instructions: changed med list sennosides 8.6 mg-docusate sodium 1 tab PO QD PRN Constipation #30 02/08/25 50 mg tablet (Senna Plus) tabs Allergies Allergy/AdvReac Type Severity Reaction Status Date / Time No Known Drug Allergies Allergy Verified 02/06/25 15:52 Opioid HPI Opioid Management Most Recent Opioid Data: Last ORT Total Score 0 02/06/25, 22:00 Last ORT Risk Category Low Risk 02/06/25, 22:00 Ur Phencyclidine Scrn, (NEGATIVE) Negative 08/10/24, 01:35 Review of Systems ROS Status of ROS 10 or more systems reviewed and unremarkable except as noted in history and below [facility] Medical History (Updated 02/19/25 @ 10:18 by Kolby Mccarty DO) POTS (postural orthostatic tachycardia syndrome) ?G90.A - Postural orthostatic tachycardia syndrome [POTS] (ICD-10) TBI (traumatic brain injury) ?S06.9XAA - Unspecified intracranial injury with loss of consciousness status unknown, initial encounter (ICD-10) Dementia ?F03.90 - Unspecified dementia, unspecified severity, without behavioral disturbance, psychotic disturbance, mood disturbance, and anxiety (ICD-10) Elevated TSH ?R79.89 - Other specified abnormal findings of blood chemistry (ICD-10) STEVO (acute kidney injury) ?N17.9 - Acute kidney failure, unspecified (ICD-10) Delirium ?R41.0 - Disorientation, unspecified (ICD-10) Altered mental status ?R41.82 - Altered mental status, unspecified (ICD-10) Hallucinations ?R44.3 - Hallucinations, unspecified (ICD-10) Acute delirium ?R41.0 - Disorientation, unspecified (ICD-10) Altered mental status ?R41.82 - Altered mental status, unspecified (ICD-10) Combative behavior ?R46.89 - Other symptoms and signs involving appearance and behavior (ICD-10) Dementia without behavioral disturbance ?F03.90 - Unspecified dementia, unspecified severity, without behavioral disturbance, psychotic disturbance, mood disturbance, and anxiety (ICD-10) Altered mental status ?R41.82 - Altered mental status, unspecified (ICD-10) GERD (gastroesophageal reflux disease) ?K21.9 - Gastro-esophageal reflux disease without esophagitis (ICD-10) Surgical History History of colostomy reversal ?Z98.890 - Other specified postprocedural states (ICD-10) H/O hernia repair ?Z98.890 - Other specified postprocedural states (ICD-10) ?Z87.19 - Personal history of other diseases of the digestive system (ICD-10) Family History Sister Family history of cancer Family history of diabetes mellitus Family history of hypertension Family history of stroke Mother Family history of diabetes mellitus Family history of hypertension Social History (Updated 02/07/25 @ 06:39 by Nuris Armijo RN) Within the past year, how often did you have a drink containing alcohol: never Within the past year, how often did you have six or more drinks on one occasion: never Score interpretation: A score less than 4 is consistent with normal alcohol consumption. Smoking status: Never smoker Non-prescribed substance use: denies use Previous occupational history: unemployed Highest level of school completed/degree received: Bachelor's degree Are you now , , , , never or living with a partner: Little interest or pleasure in doing things: not at all Feeling down, depressed, or hopeless: not at all Do you think of yourself as: straight/heterosexual Gender Identity: male Exam Narrative Exam Narrative: CONSTITUTIONAL: Awake and alert, does not follow commands or answer questions SKIN: Was warm and dry, no external signs of. EYES: PERRLA. EOMI. EARS, NOSE, THROAT: Moist oral mucosa. No tongue lacerations RESPIRATORY: Clear to auscultation bilaterally, no wheezes, crackles, or stridor, no use of accessory muscles CARDIOVASCULAR: Normal rate and regular rhythm. There is no S3, S4, murmur, rub. GASTROINTESTINAL: Abdomen was soft, non-tender, and non-distended. There is no guarding or rebound tenderness MUSCULOSKELETAL: There was no lower extremity edema, erythema, or tenderness. No deformities. NEUROLOGIC: Moving all extremities equally. Moans to painful stimuli x 4 extremities. No clonus or rigidity. Facies were symmetrical. Constitutional Vital Signs, click to edit/add: Last Vital Signs Temp 97.4 F L 02/19/25 08:06 Pulse 80 02/19/25 10:20 Resp 12 02/19/25 10:20 BP 122/79 02/19/25 10:00 Pulse Ox 97 02/19/25 10:20 O2 Del Method Nasal Cannula 02/19/25 08:06 O2 Flow Rate 2 02/19/25 08:06 Course Vital Signs Vital signs: Vital Signs Temperature 97.4 F L 02/19/25 08:06 Pulse Rate 108 H 02/19/25 08:06 Respiratory Rate 20 02/19/25 08:06 Blood Pressure 118/84 02/19/25 08:06 Pulse Oximetry 92 L 02/19/25 08:06 Oxygen Delivery Method Nasal Cannula 02/19/25 08:06 Oxygen Delivery Flow Rate 2 02/19/25 08:06 Temperature 97.4 F L 02/19/25 08:06 Pulse Rate 80 02/19/25 10:20 Respiratory Rate 12 02/19/25 10:20 Blood Pressure 122/79 02/19/25 10:00 Pulse Oximetry 97 02/19/25 10:20 Oxygen Delivery Method Nasal Cannula 02/19/25 08:06 Oxygen Delivery Flow Rate 2 02/19/25 08:06 Medical Decision Making MDM Narrative Medical decision making narrative: Patient is a 59-year-old male, history significant for TBI who is nonverbal at baseline, presenting to the emergency department via EMS, for concerns of a sixy second seizure-like episode. Per EMS, the patient was postictal upon arrival and was difficult to arouse. He states that he is more awake and alert now that he is here in the ED. He was provided 600 cc of normal saline in the field for hypotension with a systolic in the 90s. Patient's placed on a drilling field operator on arrival which demonstrated sinus tachycardia by my interpretation. He is afebrile and hemodynamically stable with a normal blood pressure. He was initially hypoxic to the low 90's, however this resolved and he is saturating 96% on room air. On examination, patient is awake and alert. He is nonverbal, however this is his baseline. He is moving all 4 extremities equally, does not appear to be postictal, and has no appreciable focal neurologic deficits. There are no external signs of injury. On review of external documentation, patient was admitted to the hospital on 02/11/2025 for a very similar presentation. At that time, he had an EEG and head CT which were unremarkable. The patient was previously on Depakote, however during his last admission, this was stopped secondary to thrombocytopenia. He was then discharged with a medication change to Trileptal. However, the patient never started this as his psychiatrist recommended against it. He is also supposed be in a Holter monitor, which is not currently on him. My differential diagnosis includes seizure versus syncope. He may have had a seizure secondary to not currently being on any antiepileptic medications. He has no focal neurologic deficits to suggest CVA. Other potential etiologies include underlying infection such as pneumonia, ACS, arrhythmia, or other electrolyte/metabolic derangement. I considered UTI which may have lowered his seizure threshold, however family states he had a negative UA a few days ago. IV was established and laboratory studies are obtained. CT head was ordered. He was given 1 L bolus normal saline. CT head independently reviewed/interpreted by myself demonstrated no acute intracranial pathology or hemorrhage. Chest x-ray independently reviewed/interpreted by myself demonstrated no acute cardiopulmonary process. Laboratory studies were unremarkable. No significant electrolyte or metabolic derangement. No evidence of acute kidney injury. No anemia or significant leukocytosis. He is thrombocytopenic, however this is improved compared to his recent laboratory studies from 02/11/2025. No transaminitis or hyperbilirubinemia. Serial troponins nonelevated. 12 Lead EKG: Sinus tachycardia at a rate of 107. Normal axis. No ST segment elevations. QRS, MO, and QTc interval within normal limits. Unchanged compared to prior EKG from 02/11. Final impression: Sinus tachycardia without evidence of acute myocardial ischemia. I do believe the patient is stable for discharge at this time. Patient's presentation is most likely consistent with breakthrough seizure secondary to medication nonadherence versus syncope. The patient had no seizure-like activity during this ED visit. He remains asymptomatic with normal vital signs. His work-up is normal and unchanged from 02/11/25. They were instructed to follow up with the neurologist and psychiatrist for further care and medication reconciliation. Return precautions were given including any new or worsening symptoms. Patient understands and agrees to the plan. FINAL IMPRESSION: #Acute breakthrough seizure versus syncope DISPOSITION: Discharged home CONDITION: Good Medical Records Medical records reviewed: Yes I reviewed the patient's medical records Lab Data Lab results reviewed: Yes I reviewed the patient's lab results Labs: Lab Results 02/19/25 02/19/25 Range/Units 08:26 09:39 WBC 3.6 L (4.0-11.0) 10^3/uL RBC 4.45 L (4.70-6.10) 10^6/uL Hgb 12.4 L (14.0-18.0) g/dL Hct 37.5 L (42.0-54.0) % MCV 84.3 (80.0-94.0) fL MCH 27.9 (25.9-34.0) pg MCHC 33.1 (29.9-35.2) g/dL RDW 14.8 (11.0-15.0) % Plt Count 88 L (150-450) 10^3/uL MPV 8.4 L (9.5-13.5) fL Neut % (Auto) 47.5 (43.0-75.0) % Lymph % (Auto) 40.6 (20.5-60.0) % Republic % (Auto) 9.7 (1.7-12.0) % Eos % (Auto) 0.8 L (0.9-7.0) % Baso % (Auto) 0.6 (0.2-2.0) % Neut # (Auto) 1.7 (1.4-6.5) 10^3/uL Lymph # (Auto) 1.5 (1.2-3.8) 10^3/uL Republic # (Auto) 0.4 (0.3-0.8) 10^3/uL Eos # (Auto) 0.0 (0.0-0.7) 10^3/uL Baso # (Auto) 0.0 (0.0-0.1) 10^3/uL Abs Immat Gran (auto) 0.03 (0.00-0.03) 10^3/uL Imm/Tot Granulo (auto) 0.8 H (0.0-0.5) % Sodium 144 (136-145) mmol/L Potassium 3.8 (3.5-5.1) mmol/L Chloride 108 H (98-107) mmol/L Carbon Dioxide 25.9 (21.0-32.0) mmol/L Anion Gap 13.9 BUN 24.0 H (7.0-18.0) mg/dL Creatinine 1.06 (0.70-1.30) mg/dL Est GFR ( Amer) >60 (>=60 mL/min/1.73m^2) Est GFR (Non-Af Amer) >60 (>=60 mL/min/1.73m^2) BUN/Creatinine Ratio 22.6 Glucose 119 H (74-106) mg/dL Calcium 8.2 L (8.5-10.1) mg/dL Total Bilirubin 0.6 (0.2-1.0) mg/dL AST 21 (15-37) U/L ALT 13 L (16-63) U/L Alkaline Phosphatase 51 (46-116) U/L Troponin I High Sens 4.0 5.0 (4.0-76.1) pg/mL Total Protein 6.6 (6.4-8.2) g/dL Albumin 2.5 L (3.4-5.0) g/dL Globulin 4.1 g/dL Albumin/Globulin Ratio 0.[address] scan - head: Attestation: I personally reviewed and interpreted this imaging study as follows: Radiologist's impression: ITS Impressions Chest X-Ray 02/19/25 08:08 IMPRESSION: No acute cardiopulmonary pathology. Impression dictated by: Arnold Serna M.D. 02/19/2025 9:02 AM Dictation Location: [employer] Electronically authenticated by: [id number] Y Date: 02/19/2025 09:[address] 02/19/25 08:08 IMPRESSION: No acute intracranial pathology. Similar chronic age-related neurodegenerative changes are noted as above. Impression dictated by: Arnold Serna M.D. 02/19/2025 9:08 AM Dictation Location: [employer] Electronically authenticated by: [id number] Y Date: 02/19/2025 09:08 ECG Data Attestation: I personally reviewed and interpreted this ECG as follows: Discharge Plan Discharge Chief Complaint: Seizure Clinical Impression: Syncope Qualifiers: Syncope type: unspecified Qualified Code(s): R55 - Syncope and collapse Patient Disposition: Home, Self-Care Time of Disposition Decision: 10:18 Condition: Good Mode of Transportation: Private Vehicle Prescriptions / Home Meds: No Action pantoprazole 40 mg tablet,delayed release (DR/EC) 40 mg PO .acb midodrine 2.5 mg tablet 2.5 mg PO BID duloxetine 30 mg Capsule,Delayed Release(Dr/Ec) 30 mg PO BID sennosides-docusate sodium [Senna Plus] 8.6-50 mg Tablet 1 tab PO QD PRN (Reason: Constipation) Qty: 30 1RF folic acid 1 mg Tablet 1 mg PO QD Qty: 60 1RF oxcarbazepine [Trileptal] 150 mg tablet 150 mg PO DAILY Qty: 30 2RF quetiapine 50 mg tablet 50 mg PO BID Rx Instructions: 50 mg in morning and 50 mg after lunch donepezil 10 mg Tablet 10 mg PO QHS Qty: 30 11RF melatonin 10 mg capsule 10 mg PO DAILY Qty: 30 11RF risperidone 0.5 mg tablet trazodone 50 mg tablet Print Language: Romansh Instructions: Syncope (ED) Referrals: Jae Cruz MD [Primary Care Provider, Family Practice] - 1 week
[2025-02-19 08:44] LABS: Hematocrit 37.5 % (42.0-54.0); Hemoglobin 12.4 g/dL (14.0-18.0); Immature Granulocytes Abs Auto 0.03 10^3/uL (0.00-0.03); Immature Granulocytes Pct Auto 0.8 % (0.0-0.5); Lymphocytes Absolute Auto 1.5 10^3/uL (1.2-3.8); Mean Corpuscular HGB Conc 33.1 g/dL (29.9-35.2); Mean Corpuscular Hemoglobin 27.9 pg (25.9-34.0); Mean Corpuscular Volume 84.3 fL (80.0-94.0); Platelet Count 88 10^3/uL (150-450); Red Blood Count 4.45 10^6/uL (4.70-6.10); White Blood Count 3.6 10^3/uL (4.0-11.0)
[2025-02-19] MEDS: 0.9 % SODIUM CHLORIDE 1,000 ML 1000 ML IV (08:48)
[2025-02-19 09:04] LABS: Alanine Aminotransferase 13 U/L (16-63); Albumin Globulin Ratio 0.6; Albumin Level 2.5 g/dL (3.4-5.0); Alkaline Phosphatase 51 U/L (46-116); Anion Gap 13.9; Aspartate Amino Transferase 21 U/L (15-37); Blood Urea Nitrogen 24.0 mg/dL (7.0-18.0); Calcium 8.2 mg/dL (8.5-10.1); Carbon Dioxide 25.9 mmol/L (21.0-32.0); Chloride 108 mmol/L (98-107); Estimated GFR (African America >60 (>=60 mL/min/1.73m^2); Estimated GFR (Non-African Ame >60 (>=60 mL/min/1.73m^2); Globulin 4.1 g/dL; Glucose 119 mg/dL (74-106); Potassium 3.8 mmol/L (3.5-5.1); Sodium 144 mmol/L (136-145); Total Protein 6.6 g/dL (6.4-8.2)
== END 2025-02-19 10:54 | disposition home or self-care (01) ==
PROVIDERS: Emergency Provider Student in an Organized Health Care Education/Training Program; PCP Family Medicine
DX: R55 Syncope and collapse (principal); Z87.820 Personal history of traumatic brain injury; Z79.899 Other long term (current) drug therapy
CPT/HCPCS: 36415; 70450; 71045; 80053; 81001; 84484; 85025; 93005; 96360; 99285

== ENCOUNTER 2025-03-05 00:13 | Emergency (ER) | payer OTHER, SELFPAY ==
[2025-03-05] VITALS (13 sets, daily range): BP systolic 102–125; BP diastolic 48–84; PULSE 72–80; TEMP 36.8; O2SAT 97
--- OUTSIDE RECORDS SUMMARY | 2025-03-05 00:22 | XMS_ITS | CCD ---
Author Organization [facility] Team Providers Care Pigment Supplier Name Role Phone NAYA IZAGUIRRE Admitting Unavailable JAE LOPEZ Primary Care Unavailable JAE LOPEZ Referring Unavailable NAYA IZAGUIRRE Attending Unavailable [facility] Procedure Practitioner Unavailab NAYA Wolf Surgeon Unavailable JAE LOPEZ Primary Care Unavailable SELF, REFERRED Referring Unavailable WILLAM IZAGUIRREIN Attending Unavailable ZINA JIASULTANAIN Admitting Unavailable [facility] Procedure Practitioner Unavailab WILLAM WolfIN Surgeon Unavailable [...] Care Provider UnavailJae Easton Primary Care Physician [phone] MD Danni Graham Attending Provider MD Jae Lopez Primary Care Provider [phone] MAITE MORRIS Attending Unavailable JAE LOPEZ Primary Care Unavailable Danni Graham Admitting Unavailable Danni Graham Attending Unavailable Danni Graham Referring Unavailable Jae Lopez MD Primary Care Provider [phone] Danni Graham Attending Unavailable Danni Graham Attending [...] Unavailable Jae Lopez MD Primary Care Provider [phone] FIDELINA FISHER Attending Unavailable HOY, JAE M Primary Care Unavailable ERWIN PRICE Consulting Unavailable HOY, JAE M Referring Unavailable HOY, JAE M Primary Care Unavailable HOY, JAE M Referring Unavailable HOY, JAE M Primary Care Unavailable HOY, JEA M Referring Unavailable HOY, JAE M Primary [...] MEDELLIN Consulting Unavailable MERCEDES TAVAREZ Consulting Unavailable [facility] Consulting Unavailab BAILEY Tomlin Attending Unavailable Allergies Allergy Classification Reported Allergen(s) Allergy Type Date of Onset Reaction(s) Facility (1 source) 18285,00 Drug allergy (disorder) 9 [facility] Repository (9 sources) diphenhydrAMINE ; Translations: [DIPHENHYDRAMIN E] Drug Allergy 5 Abnormal Behavior [facility] Work Phone: (1 source) No Known Medication Allergies; Translations: [No Known Medication Allergies] Propensity to adverse reactions (disorder) [facility] Repository (6 sources) LORazepam; Translations: [LORAZEPAM] Drug Allergy 5 Abnormal Behavior [facility] Medications Current Medications Medication Drug Class(es) Dates [...] / neomycin 3.5 mg/ml / polymyxin b 81904 unt/ml otic suspension (3 sources) Aminoglycoside Antibacterial, [...] hydrochloride 5 mg oral tablet (18 sources) X-vvxbqa-H-aspartate Receptor Antagonist Start: 11-17-2022 End: 07-30-2024 take [...] Onset: 5 Unclassified (1 source) tele-neuro consult Lena Onset: 5 Unclassified (1 source) Trauma Onset: [...] Test Name Value Interpretation Reference Range Facility 36on 02-19-2025 36 This morning pt had a gran mal seizure, [facility] is asking why he was taken off his trileptal when that is what he needs for seizures. Can you call pts to discuss this ed? [phone]. Normal [facility] 37on 02-15-2025 37 Medication Instructions: Stop Depakote due to thrombocytopenia, leukopenia. Continue with plan for follow up labs at [facility] in 1-2 weeks Stop Donepezil due [...] follow up labs to be obtained by [facility] in 1-2 weeks. Sisters/Spouse notified to bring most recent labwork to patient's next visit for review. Will monitor labs as indicated for monitoring of thrombocytopenia, leukopenia most likely related to Depakote Return to Clinic in 6 Weeks. If you have questions/concerns/n eed refills call [phone] M-F 8:30am-4:30pm, to speak with my recruitment assistant. You can also message me through [employer]. After hours or on holidays and weekends, you can call the hospital automatic riveting machine operator at [phone] to talk with the on-call physician for emergencies. For a crisis or suicidal ideation you can call [facility] ([phone]) or 520. You may also call 911 or the local emergency department with any thoughts of , suicidal ideations, homicidal ideations, concern that your mind is playing tricks on you (hallucinations, paranoia, etc), or with any life threatening emergency [facility] Office Visiton 08-29-2025 Follow-up visit [id number] Estella Jeffery Nia 1965 M Date Provider Department Center 02/15/2025 BAILEY TOM [facility] Nusrat Heal No family history on file Level of Service:65621 [facility] PSYCHIATRIC DIAGNOSTIC EVAL W/MEDICAL SERVICES (GC) Reason for Visit and Comments: Med Management [[id number]] Normal [facility] CNCOon 10-31-2024 CNCO Letter Text Normal [place] [place] BASIC METABOLIC PANELon Anion gap [Moles/Vol] 6 mmol/L Normal 5-[address] [facility] Comment on above: Performed By: #### 3 4148-7, 98162-5, BMP, CBC #### [facility] ([id number]) [address], [address] [place] [address] Calcium [Mass/Vol] 8.2 mg/dL Low 8.5-10.5 [facility] Comment on above: Performed By: #### 3 4148-7, 92519-2, BMP, CBC #### [facility] ([id number]) [address], [address] [place] [address] Chloride [Moles/Vol] 104 mmol/L Normal 98-109 [facility] Comment on above: Performed By: #### 3 4148-7, 37466-4, BMP, CBC #### [facility] ([id number]) [address], [address] [place] [address] CO2 [Moles/Vol] 29 mmol/L Normal 22-32 [facility] Comment on above: Performed By: #### 3 4148-7, 60649-1, BMP, CBC #### [facility] ([id number]) [address], [address] [place] [address] Creatinine [Mass/Vol] 1.13 mg/dL Normal 0.60-1.[address] [facility] Comment on above: Result Comment: METH OD TRACEABLE TO IDMS STANDARD Performed By: #### 3 4148-7, 24917-8, BMP, CBC #### [facility] ([id number]) [address], [facility] [address] [place] [address] GFR/1.73 sq M.predicted among non-blacks MDRD (S/P/Bld) [Vol rate/Area] 75 mL/min/{1.73_m2} Normal >=60 [facility] Comment on above: Result Comment: [facility] eGFR is based on the CKD-EPI 2020 equation that does not use a race coefficient. Performed By: #### 3 4148-7, 32662-9, BMP, CBC #### [facility] ([id number]) [address], [address] [address] Glucose [Mass/Vol] 84 mg/dL Normal 65-99 [facility] Comment on above: Performed By: #### 3 4148-7, 82810-8, BMP, CBC #### [facility] ([id number]) [address] [address] Potassium [Moles/Vol] 4.2 mmol/L Normal 3.5-5.[address] [facility] Comment on above: Performed By: #### 3 4148-7, 42268-6, BMP, CBC #### [facility] ([id number]) [address], [facility] [address] [place] [address] Sodium [Moles/Vol] 139 mmol/L Normal 134-146 [facility] Comment on above: Performed By: #### 3 4148-7, 05057-4, BMP, CBC #### [facility] ([id number]) [address], [facility] [address] [place] [address] Urea nitrogen [Mass/Vol] 23 mg/dL Normal 5-23 [facility] Comment on above: Performed By: #### 3 4148-7, 52518-1, BMP, CBC #### [facility] ([id number]) [address], [address] [place] [address] CBC (NO DIFF)on 10-24-2024 Erythrocyte distribution width (RBC) [Ratio] 17.1 % High 11.5-15 [facility] Comment on above: Performed By: #### 3 4148-7, 44516-9, BMP, CBC #### [facility] ([id number]) [address], [facility] [address] [place] [address] Hematocrit (Bld) [Volume fraction] 38.9 % Low 39-50 [facility] Comment on above: Performed By: #### 3 4148-7, 92649-5, BMP, CBC #### [facility] ([id number]) [address], [facility] [address] [place] [address] Hemoglobin (Bld) [Mass/Vol] 13.0 g/dL Normal 13-17 [facility] Comment on above: Performed By: #### 3 4148-7, 41492-6, BMP, CBC #### [facility] ([id number]) [address], [facility] [address] [place] [address] MCH (RBC) [Entitic mass] 25.5 pg Low 27-34 [facility] Comment on above: Performed By: #### 3 4148-7, 10283-8, BMP, CBC #### [facility] ([id number]) [address], [address] [place] [address] MCHC (RBC) [Mass/Vol] 33.3 g/dL Normal 32-[address] [facility] Comment on above: Performed By: #### 3 4148-7, 38923-5, BMP, CBC #### [facility] ([id number]) [address], [address] [place] [address] MCV (RBC) [Entitic vol] 77 fL Low 80-100 [facility] Comment on above: Performed By: #### 3 4148-7, 92073-3, BMP, CBC #### [facility] ([id number]) [address], [address] [place] [address] Platelet mean volume (Bld) [Entitic vol] 6.8 fL Low 7-12 [facility] Comment on above: Performed By: #### 3 4148-7, 80474-5, BMP, CBC #### [facility] ([id number]) [address], [address] [place] [address] Platelets (Bld) [#/Vol] 56 10*3/uL Low 150-450 [facility] Comment on above: Performed By: #### 3 4148-7, 18238-2, BMP, CBC #### [facility] ([id number]) [address], [address] [place] [address] RBC COUNT 5.08 X10E12/L Normal 4.1-5.7 [facility] Comment on above: Performed By: #### 3 4148-7, 20891-3, BMP, CBC #### [facility] ([id number]) [address], [address] [place] [address] WBC (Bld) [#/Vol] 3.8 10*3/uL Low 4-11 [facility] Comment on above: Performed By: #### 3 4148-7, 65671-4, BMP, CBC #### [facility] ([id number]) [address], [address] [place] [address] MAGNESIUMon 10-24-2024 Magnesium [Mass/Vol] 2.1 mg/dL Normal 1.8-2.6 [facility] Comment on above: Performed By: #### 3 4148-7, 29326-7, BMP, CBC #### [facility] ([id number]) [address], [address] [place] [address] BASIC METABOLIC PANELon 05-0 Anion gap [Moles/Vol] 8 mmol/L Normal 5-[address] [facility] Comment on above: Performed By: #### 3 4148-7, 54986-6, BMP, CBC #### [facility] ([id number]) [address], [facility] [address] [place] [address] Calcium [Mass/Vol] 8.2 mg/dL Low 8.5-10.5 [facility] Comment on above: Performed By: #### 3 4148-7, 98072-5, BMP, CBC #### [facility] ([id number]) [address], [facility] [address] [place] [address] Chloride [Moles/Vol] 102 mmol/L Normal 98-109 [facility] Comment on above: Performed By: #### 3 4148-7, 62302-5, BMP, CBC #### [facility] ([id number]) [address], [address] [place] [address] CO2 [Moles/Vol] 29 mmol/L Normal 22-32 [facility] Comment on above: Performed By: #### 3 4148-7, 56557-2, BMP, CBC #### [facility] ([id number]) [address], [address] [place] [address] Creatinine [Mass/Vol] 1.13 mg/dL Normal 0.60-1.[address] [facility] Comment on above: Result Comment: METH OD TRACEABLE TO IDMS STANDARD Performed By: #### 3 4148-7, 09587-9, BMP, CBC #### [facility] ([id number]) [address], [address] [place] [address] GFR/1.73 sq M.predicted among non-blacks MDRD (S/P/Bld) [Vol rate/Area] 75 mL/min/{1.73_m2} Normal >=60 [facility] Comment on above: Result Comment: Repo rted eGFR is based on the CKD-EPI 2020 equation that does not use a race coefficient. Performed By: #### 3 4148-7, 36444-8, BMP, CBC #### [facility] ([id number]) [address], [address] [place] [address] Glucose [Mass/Vol] 88 mg/dL Normal 65-99 [facility] Comment on above: Performed By: #### 3 4148-7, 83655-0, BMP, CBC #### [facility] ([id number]) [address], [address] [place] [address] Potassium [Moles/Vol] 4.2 mmol/L Normal 3.5-5.[address] [facility] Comment on above: Performed By: #### 3 4148-7, 23555-1, BMP, CBC #### [facility] ([id number]) [address], [address] [place] [address] Sodium [Moles/Vol] 139 mmol/L Normal 134-146 [facility] Comment on above: Performed By: #### 3 4148-7, 72726-5, BMP, CBC #### [facility] ([id number]) [address], [facility] [address] [place] [address] Urea nitrogen [Mass/Vol] 24 mg/dL High 5-23 [facility] Comment on above: Performed By: #### 3 4148-7, 07129-2, BMP, CBC #### [facility] ([id number]) [address], [facility] [address] [place] [address] CBC (NO DIFF)on 10-23-2024 Erythrocyte distribution width (RBC) [Ratio] 17.1 % High 11.5-15 [facility] Comment on above: Performed By: #### 3 4148-7, 54115-6, BMP, CBC #### [facility] ([id number]) [address], [address] [place] [address] Hematocrit (Bld) [Volume fraction] 39.4 % Normal 39-50 [facility] Comment on above: Performed By: #### 3 4148-7, 95014-0, BMP, CBC #### [facility] ([id number]) [address], [address] [place] [address] Hemoglobin (Bld) [Mass/Vol] 13.0 g/dL Normal 13-17 [facility] Comment on above: Performed By: #### 3 4148-7, 99212-8, BMP, CBC #### [facility] ([id number]) [address], [address] [place] [address] MCH (RBC) [Entitic mass] 25.1 pg Low 27-34 [facility] Comment on above: Performed By: #### 3 4148-7, 78808-7, BMP, CBC #### [facility] ([id number]) [address], [address] [place] [address] MCHC (RBC) [Mass/Vol] 33.1 g/dL Normal 32-[address] [facility] Comment on above: Performed By: #### 3 4148-7, 11073-7, BMP, CBC #### [facility] ([id number]) [address], [address] [place] [address] MCV (RBC) [Entitic vol] 76 fL Low 80-100 [facility] Comment on above: Performed By: #### 3 4148-7, 39252-9, BMP, CBC #### [facility] ([id number]) [address], [address] [place] [address] Platelet mean volume (Bld) [Entitic vol] 6.7 fL Low 7-12 [facility] Comment on above: Performed By: #### 3 4148-7, 34471-0, BMP, CBC #### [facility] ([id number]) [address], [address] [place] [address] Platelets (Bld) [#/Vol] 55 10*3/uL Low 150-450 [facility] Comment on above: Performed By: #### 3 4148-7, 98901-2, BMP, CBC #### [facility] ([id number]) [address], [address] [place] [address] RBC COUNT 5.18 X10E12/L Normal 4.1-5.7 [facility] Comment on above: Performed By: #### 3 4148-7, 26595-2, BMP, CBC #### [facility] ([id number]) [address], [facility] [address] [place] [address] WBC (Bld) [#/Vol] 3.6 10*3/uL Low 4-11 [facility] Comment on above: Performed By: #### 3 4148-7, 30215-0, BMP, CBC #### [facility] ([id number]) [address], [address] [place] [address] MAGNESIUMon --2024 Magnesium [Mass/Vol] 2.1 mg/dL Normal 1.8-2.6 [facility] Comment on above: Performed By: #### 3 4148-7, 93322-2, BMP, CBC #### [facility] ([id number]) [address], [facility] [address] [place] [address] BASIC METABOLIC PANELon 05-0 Anion gap [Moles/Vol] 6 mmol/L Normal 5-[address] [facility] Comment on above: Performed By: #### 3 4148-7, 91512-2, BMP, CBC #### [facility] ([id number]) [address], [facility] [address] [place] [address] Calcium [Mass/Vol] 8.6 mg/dL Normal 8.5-10.5 [facility] Comment on above: Performed By: #### 3 4148-7, 82417-0, BMP, CBC #### [facility] ([id number]) [address], [address] [place] [address] Chloride [Moles/Vol] 101 mmol/L Normal 98-109 [facility] Comment on above: Performed By: #### 3 4148-7, 71556-5, BMP, CBC #### [facility] ([id number]) [address], [address] [place] [address] CO2 [Moles/Vol] 32 mmol/L Normal 22-32 [facility] Comment on above: Performed By: #### 3 4148-7, 11505-4, BMP, CBC #### [facility] ([id number]) [address], [address] [place] [address] Creatinine [Mass/Vol] 1.31 mg/dL High 0.60-1.[address] [facility] Comment on above: Result Comment: METH OD TRACEABLE TO IDMS STANDARD Performed By: #### 3 4148-7, 24982-5, BMP, CBC #### [facility] ([id number]) [address], [address] [place] [address] GFR/1.73 sq M.predicted among non-blacks MDRD (S/P/Bld) [Vol rate/Area] 63 mL/min/{1.73_m2} Normal >=60 [facility] Comment on above: Result Comment: [facility] eGFR is based on the CKD-EPI 2020 equation that does not use a race coefficient. Performed By: #### 3 4148-7, 50461-9, BMP, CBC #### [facility] ([id number]) [address], [address] [place] [address] Glucose [Mass/Vol] 77 mg/dL Normal 65-99 [facility] Comment on above: Performed By: #### 3 4148-7, 42421-4, BMP, CBC #### [facility] ([id number]) [address], [address] [place] [address] Potassium [Moles/Vol] 4.5 mmol/L Normal 3.5-5.[address] [facility] Comment on above: Performed By: #### 3 4148-7, 46893-4, BMP, CBC #### [facility] ([id number]) [address], [facility] [address] [place] [address] Sodium [Moles/Vol] 139 mmol/L Normal 134-146 [facility] Comment on above: Performed By: #### 3 4148-7, 73363-8, BMP, CBC #### [facility] ([id number]) [address], [facility] [address] [place] [address] Urea nitrogen [Mass/Vol] 24 mg/dL High 5-23 [facility] Comment on above: Performed By: #### 3 4148-7, 72539-6, BMP, CBC #### [facility] ([id number]) [address], [facility] [address] [place] [address] CBC (NO DIFF)on 10-22-2024 Erythrocyte distribution width (RBC) [Ratio] 17.2 % High 11.5-15 [facility] Comment on above: Performed By: #### 3 4148-7, 94316-5, BMP, CBC #### [facility] ([id number]) [address], [facility] [address] [place] [address] Hematocrit (Bld) [Volume fraction] 40.6 % Normal 39-50 [facility] Comment on above: Performed By: #### 3 4148-7, 08609-4, BMP, CBC #### [facility] ([id number]) [address], [facility] [address] [place] [address] Hemoglobin (Bld) [Mass/Vol] 13.1 g/dL Normal 13-17 [facility] Comment on above: Performed By: #### 3 4148-7, 51951-9, BMP, CBC #### [facility] ([id number]) [address], [address] [place] [address] MCH (RBC) [Entitic mass] 24.7 pg Low 27-34 [facility] Comment on above: Performed By: #### 3 4148-7, 83882-5, BMP, CBC #### [facility] ([id number]) [address], [facility] [address] [place] [address] MCHC (RBC) [Mass/Vol] 32.2 g/dL Normal 32-[address] [facility] Comment on above: Performed By: #### 3 4148-7, 32643-6, BMP, CBC #### [facility] ([id number]) [address], [facility] [address] [place] [address] MCV (RBC) [Entitic vol] 77 fL Low 80-100 [facility] Comment on above: Performed By: #### 3 4148-7, 17034-2, BMP, CBC #### [facility] ([id number]) [address], [facility] [address] [place] [address] Platelet mean volume (Bld) [Entitic vol] 6.9 fL Low 7-12 [facility] Comment on above: Performed By: #### 3 4148-7, 23606-3, BMP, CBC #### [facility] ([id number]) [address], [facility] [address] [place] [address] Platelets (Bld) [#/Vol] 65 10*3/uL Low 150-450 [facility] Comment on above: Performed By: #### 3 4148-7, 90934-5, BMP, CBC #### [facility] ([id number]) [address], [facility] [address] [place] [address] RBC COUNT 5.29 X10E12/L Normal 4.1-5.7 [facility] Comment on above: Performed By: #### 3 4148-7, 91957-7, BMP, CBC #### [facility] ([id number]) [address], [address] [place] [address] WBC (Bld) [#/Vol] 4.4 10*3/uL Normal 4-11 [facility] Comment on above: Performed By: #### 3 4148-7, 86501-7, BMP, CBC #### [facility] ([id number]) [address], [facility] [address] [place] [address] FREE LIGHT CHAINSon 10-23-19 25 FREE SHENA/LAMBD RATIO 1.25 Normal 0.26-1.65 [facility] Comment on above: Performed By: #### 3 4148-7, 31789-4, BMP, CBC #### [facility] ([id number]) [address], [address] [address] FREE KAPPA LT CHAINS 2.35 mg/dL High 0.33-1.94 [facility] Comment on above: Performed By: #### 3 4148-7, 13239-1, BMP, CBC #### [facility] ([id number]) [address], [address] [address] FREE LAMBDA LT CHAINS 1.88 mg/dL Normal 0.57-2.[address] [facility] Comment on above: Performed By: #### 3 4148-7, 47224-2, BMP, CBC #### [facility] ([id number]) [address], [address] [place] [address] MAGNESIUMon 10-22-2024 Magnesium [Mass/Vol] 2.1 mg/dL Normal 1.8-2.6 [facility] Comment on above: Performed By: #### 3 4148-7, 33375-6, BMP, CBC #### [facility] ([id number]) [address], [address] [place] [address] MR CERVICAL SPINE WO CONTon 10-22-2024 MR [...] Lu MD on 10/22/2024 7:28 AM Normal [facility] MR LUMBAR SPINE WO CONTon MR [...] Lu MD on 10/22/2024 7:24 AM Normal [facility] SERUM IMMUNOFIXATIONon 10-22 IgA [Mass/Vol] 285 mg/dL Normal 68-378 [facility] Comment on above: Performed By: #### 3 4148-7, 27347-6, BMP, CBC #### [facility] ([id number]) [address], [address] [place] [address] IgG [Mass/Vol] 1378 mg/dL Normal 635-1741 [facility] Comment on above: Performed By: #### 3 4148-7, 43651-0, BMP, CBC #### [facility] ([id number]) [address], [address] [place] [address] IgM [Mass/Vol] 54 mg/dL Normal 45-281 [facility] Comment on above: Performed By: #### 3 4148-7, 30351-3, BMP, CBC #### [facility] ([id number]) [address], [address] [place] [address] IMMUNOFIX INTERP Unremarkable pattern and quantitation, no monoclonal bands Normal [facility] Comment on above: Performed By: #### 3 4148-7, 12485-2, BMP, CBC #### [facility] ([id number]) [address], [address] [place] [address] VALPROIC ACID, FREE, Son VALPROIC ACID, FREE 22 mcg/mL Normal 5-25 [facility] Comment on above: Result Comment: Test Performed by: [facility] [place] [address] Loading Machine Operator Helper: Eduardo Clark Ph.D.; CLIA# [id number] Performed By: #### 3 4148-7, 70046-4, BMP, CBC #### [facility] ([id number]) [address], [address] [place] [address] BASIC METABOLIC PANELon 05-0 Anion gap [Moles/Vol] 6 mmol/L Normal 5-[address] [facility] Comment on above: Performed By: #### 3 4148-7, 90297-0, BMP, CBC #### [facility] ([id number]) [address], [facility] [address] [place] [address] Calcium [Mass/Vol] 8.8 mg/dL Normal 8.5-10.5 [facility] Comment on above: Performed By: #### 3 4148-7, 04069-6, BMP, CBC #### [facility] ([id number]) [address], [address] [place] [address] Chloride [Moles/Vol] 101 mmol/L Normal 98-109 [facility] Comment on above: Performed By: #### 3 4148-7, 15278-6, BMP, CBC #### [facility] ([id number]) [address], [address] [place] [address] CO2 [Moles/Vol] 32 mmol/L Normal 22-32 [facility] Comment on above: Performed By: #### 3 4148-7, 97919-4, BMP, CBC #### [facility] ([id number]) [address], [address] [place] [address] Creatinine [Mass/Vol] 1.04 mg/dL Normal 0.60-1.[address] [facility] Comment on above: Result Comment: METH OD TRACEABLE TO IDMS STANDARD Performed By: #### 3 4148-7, 30505-5, BMP, CBC #### [facility] ([id number]) [address], [address] [place] [address] GFR/1.73 sq M.predicted among non-blacks MDRD (S/P/Bld) [Vol rate/Area] 83 mL/min/{1.73_m2} Normal >=60 [facility] Comment on above: Result Comment: [facility] eGFR is based on the CKD-EPI 2020 equation that does not use a race coefficient. Performed By: #### 3 4148-7, 84906-1, BMP, CBC #### [facility] ([id number]) [address], [address] [place] [address] Glucose [Mass/Vol] 87 mg/dL Normal 65-99 [facility] Comment on above: Performed By: #### 3 4148-7, 68640-9, BMP, CBC #### [facility] ([id number]) [address], [address] [place] [address] Potassium [Moles/Vol] 4.3 mmol/L Normal 3.5-5.[address] [facility] Comment on above: Performed By: #### 3 4148-7, 65030-6, BMP, CBC #### [facility] ([id number]) [address], [facility] [address] [place] [address] Sodium [Moles/Vol] 139 mmol/L Normal 134-146 [facility] Comment on above: Performed By: #### 3 4148-7, 26181-2, BMP, CBC #### [facility] ([id number]) [address], [address] [address] Urea nitrogen [Mass/Vol] 15 mg/dL Normal 5-23 [facility] Comment on above: Performed By: #### 3 4148-7, 35574-8, BMP, CBC #### [facility] ([id number]) [address], [address] [address] CBC (NO DIFF)on 10-21-2024 Erythrocyte distribution width (RBC) [Ratio] 16.8 % High 11.5-15 [facility] Comment on above: Performed By: #### 3 4148-7, 41032-3, BMP, CBC #### [facility] ([id number]) [address], [address] [address] Hematocrit (Bld) [Volume fraction] 44.6 % Normal 39-50 [facility] Comment on above: Performed By: #### 3 4148-7, 79056-4, BMP, CBC #### [facility] ([id number]) [address], [address] [address] Hemoglobin (Bld) [Mass/Vol] 14.5 g/dL Normal 13-17 [facility] Comment on above: Performed By: #### 3 4148-7, 74620-4, BMP, CBC #### [facility] ([id number]) [address], [address] [place] [address] MCH (RBC) [Entitic mass] 24.9 pg Low 27-34 [facility] Comment on above: Performed By: #### 3 4148-7, 08273-5, BMP, CBC #### [facility] ([id number]) [address], [address] [place] [address] MCHC (RBC) [Mass/Vol] 32.6 g/dL Normal 32-[address] [facility] Comment on above: Performed By: #### 3 4148-7, 61380-8, BMP, CBC #### [facility] ([id number]) [address], [address] [place] [address] MCV (RBC) [Entitic vol] 76 fL Low 80-100 [facility] Comment on above: Performed By: #### 3 4148-7, 16177-9, BMP, CBC #### [facility] ([id number]) [address], [address] [place] [address] Platelet mean volume (Bld) [Entitic vol] 7.1 fL Normal 7-12 [facility] Comment on above: Performed By: #### 3 4148-7, 04560-4, BMP, CBC #### [facility] ([id number]) [address], [address] [place] [address] Platelets (Bld) [#/Vol] 57 10*3/uL Low 150-450 [facility] Comment on above: Performed By: #### 3 4148-7, 73813-2, BMP, CBC #### [facility] ([id number]) [address], [facility] [address] [place] [address] RBC COUNT 5.83 X10E12/L High 4.1-5.7 [facility] Comment on above: Performed By: #### 3 4148-7, 62971-3, BMP, CBC #### [facility] ([id number]) [address], [address] [place] [address] WBC (Bld) [#/Vol] 3.1 10*3/uL Low 4-11 [facility] Comment on above: Performed By: #### 3 4148-7, 36145-9, BMP, CBC #### [facility] ([id number]) [address], [address] [place] [address] MAGNESIUMon 10-21-2024 Magnesium [Mass/Vol] 2.1 mg/dL Normal 1.8-2.6 [facility] Comment on above: Performed By: #### 3 4148-7, 33459-4, BMP, CBC #### [facility] ([id number]) [address], [address] [place] [address] US ABDOMEN LMTDon 10-21-2024 US ABDOMEN LMTD [...] Juarez MD on 10/21/2024 2:02 PM Normal [facility] VALPROIC ACID DEPAKANEon VALPROIC ACID 91 ug/mL Normal 50-100 [facility] Comment on above: Performed By: #### 3 4148-7, 17749-3, BMP, CBC #### [facility] ([id number]) [address], [address] [place] [address] BASIC METABOLIC PANELon 05-0 Anion gap [Moles/Vol] 6 mmol/L Normal 5-[address] [facility] Comment on above: Performed By: #### 3 4148-7, 71112-5, BMP, CBC #### [facility] ([id number]) [address], [address] [place] [address] Calcium [Mass/Vol] 8.2 mg/dL Low 8.5-10.5 [facility] Comment on above: Performed By: #### 3 4148-7, 77997-7, BMP, CBC #### [facility] ([id number]) [address], [address] [place] [address] Chloride [Moles/Vol] 102 mmol/L Normal 98-109 [facility] Comment on above: Performed By: #### 3 4148-7, 10199-2, BMP, CBC #### [facility] ([id number]) [address], [address] [place] [address] CO2 [Moles/Vol] 31 mmol/L Normal 22-32 [facility] Comment on above: Performed By: #### 3 4148-7, 38102-8, BMP, CBC #### [facility] ([id number]) [address], [address] [place] [address] Creatinine [Mass/Vol] 1.12 mg/dL Normal 0.60-1.[address] [facility] Comment on above: Result Comment: METH OD TRACEABLE TO IDMS STANDARD Performed By: #### 3 4148-7, 73021-7, BMP, CBC #### [facility] ([id number]) [address], [address] [place] [address] GFR/1.73 sq M.predicted among non-blacks MDRD (S/P/Bld) [Vol rate/Area] 76 mL/min/{1.73_m2} Normal >=60 [facility] Comment on above: Result Comment: Repo rted eGFR is based on the CKD-EPI 2020 equation that does not use a race coefficient. Performed By: #### 3 4148-7, 63951-7, BMP, CBC #### [facility] ([id number]) [address], [facility] [address] [place] [address] Glucose [Mass/Vol] 92 mg/dL Normal 65-99 [facility] Comment on above: Performed By: #### 3 4148-7, 18226-5, BMP, CBC #### [facility] ([id number]) [address], [facility] [address] [place] [address] Potassium [Moles/Vol] 3.7 mmol/L Normal 3.5-5.[address] [facility] Comment on above: Performed By: #### 3 4148-7, 25314-7, BMP, CBC #### [facility] ([id number]) [address], [facility] [address] [place] [address] Sodium [Moles/Vol] 139 mmol/L Normal 134-146 [facility] Comment on above: Performed By: #### 3 4148-7, 09755-2, BMP, CBC #### [facility] ([id number]) [address] [place] [address] Urea nitrogen [Mass/Vol] 15 mg/dL Normal 5-23 [facility] Comment on above: Performed By: #### 3 4148-7, 06346-1, BMP, CBC #### [facility] ([id number]) [address] [place] [address] CBC (NO DIFF)on 10-20-2024 Erythrocyte distribution width (RBC) [Ratio] 16.9 % High 11.5-15 [facility] Comment on above: Performed By: #### 3 4148-7, 42225-8, BMP, CBC #### [facility] ([id number]) [address] [place] [address] Hematocrit (Bld) [Volume fraction] 39.2 % Normal 39-50 [facility] Comment on above: Performed By: #### 3 4148-7, 89237-9, BMP, CBC #### [facility] ([id number]) [address], [address] [place] [address] Hemoglobin (Bld) [Mass/Vol] 12.9 g/dL Low 13-17 [facility] Comment on above: Performed By: #### 3 4148-7, 56867-5, BMP, CBC #### [facility] ([id number]) [address], [address] [place] [address] MCH (RBC) [Entitic mass] 25.2 pg Low 27-34 [facility] Comment on above: Performed By: #### 3 4148-7, 18836-3, BMP, CBC #### [facility] ([id number]) [address], [address] [place] [address] MCHC (RBC) [Mass/Vol] 33.0 g/dL Normal 32-[address] [facility] Comment on above: Performed By: #### 3 4148-7, 13690-6, BMP, CBC #### [facility] ([id number]) [address], [address] [place] [address] MCV (RBC) [Entitic vol] 77 fL Low 80-100 [facility] Comment on above: Performed By: #### 3 4148-7, 07277-8, BMP, CBC #### [facility] ([id number]) [address], [address] [place] [address] Platelet mean volume (Bld) [Entitic vol] 7.1 fL Normal 7-12 [facility] Comment on above: Performed By: #### 3 4148-7, 88288-3, BMP, CBC #### [facility] ([id number]) [address], [address] [place] [address] Platelets (Bld) [#/Vol] 57 10*3/uL Low 150-450 [facility] Comment on above: Performed By: #### 3 4148-7, 32546-1, BMP, CBC #### [facility] ([id number]) [address], [address] [place] [address] RBC COUNT 5.13 X10E12/L Normal 4.1-5.7 [facility] Comment on above: Performed By: #### 3 4148-7, 71388-3, BMP, CBC #### [facility] ([id number]) [address], [address] [place] [address] WBC (Bld) [#/Vol] 2.6 10*3/uL Low 4-11 [facility] Comment on above: Performed By: #### 3 4148-7, 15913-6, BMP, CBC #### [facility] ([id number]) [address], [address] [place] [address] FIBRIN SPLIT PRODUCTSon 05-0 FIBRIN SPLIT PRODUCT <5 Normal <5 [facility] Comment on above: Performed By: #### 3 4148-7, 18342-3, BMP, CBC #### [facility] ([id number]) [address], [address] [place] [address] HEPATITIS PANEL, ACUTEon - ANTI HCV W/PCR REFLX Non-Reactive Normal Non-[place] ctiv e [facility] Comment on above: Result Comment: If r ecent infection suspected, recommend repeat testing (>2 months). Bqdohr-wa-skmclm ratio is <1.0. Performed By: #### 3 4148-7, 75686-5, BMP, CBC #### [facility] ([id number]) [address], [address] [place] [address] HEPATITIS A IGM Non-Reactive Normal Non-Reactiv e [facility] Comment on above: Performed By: #### 3 4148-7, 08306-7, BMP, CBC #### [facility] ([id number]) [address], [address] [place] [address] HEPATITIS B CORE IGM Non-Reactive Normal Non-[place] ctiv e [facility] Comment on above: Performed By: #### 3 4148-7, 03246-5, BMP, CBC #### [facility] ([id number]) [address], [address] [place] [address] HEPATITIS B SURF AG Non-Reactive Normal Non-Reac tiv e [facility] Comment on above: Performed By: #### 3 4148-7, 07808-9, BMP, CBC #### [facility] ([id number]) [address], [address] [place] [address] IMMATURE PLATELET FRACTIONon 10-20-2024 IMMATURE PLATELET FRACTION 1.2 % Normal 1.0-11.4 [facility] Comment on above: Result Comment: Perf ormed At: H[facility]PITAL LAB ([facility]) [facility] [place] [address] Community Education Specialist: DO RUBEN AN Number: [phone] Performed By: #### 3 4148-7, 99239-3, BMP, CBC #### [facility] ([id number]) [address], [address] [place] [address] MAGNESIUMon 10-20-2024 Magnesium [Mass/Vol] 2.1 mg/dL Normal 1.8-2.6 [facility] Comment on above: Performed By: #### 3 4148-7, 47892-1, BMP, CBC #### [facility] ([id number]) [address], [address] [place] [address] ALBRECHT GENERIC ORDERon 025 TEST RESULT SEE COMMENTS Normal [facility] Comment on above: Result Comment: Test Result [...] method is an immunoenzymatic assay manufactured by [employer] and performed on the [employer] DxI 800. Values obtained with different assay methods or kits may be different and cannot be used interchangeably. Test results cannot be interpreted as absolute evidence for the presence or absence of malignant disease. Test Performed by: [facility] [employer] [facility] [address] [place] [address] Loading Machine Operator Helper: Eduardo Clark Ph.D.; CLIA# [id number] Performed By: #### 3 4148-7, 83681-3, BMP, CBC #### [facility] ([id number]) [address] [place] [address], [address] [place] [address] POTASSIUMon 10-20-2024 Potassium [Moles/Vol] 4.6 mmol/L Normal 3.5-5.0 [facility] Comment on above: Performed By: #### 3 4148-7, 20134-8, BMP, CBC #### [facility] ([id number]) [address], [address] [place] [address] PROSTATE HEALTH INDEX REFLEX (PHI13)on 10-20-2024 PROST[facility] INDX SEE COMMENTS Normal Pr [facility] Comment on above: Result Comment: Test [...] method is an immunoenzymatic assay manufactured by [employer] and performed on the [employer] DxI 800. Values obtained with different assay methods or kits may be different and cannot be used interchangeably. Test results cannot be interpreted as absolute evidence for the presence or absence of malignant disease. Test Performed by: [place] [address] Loading Machine Operator Helper: Eduardo Clark Ph.D.; CLIA# [id number] Performed By: #### 3 4148-7, 65751-7, BMP, CBC #### [facility] ([id number]) [address], [address] [place] [address] PSA W/ REFLEX TO PROSTATE HE ALTH INDEXon 10-20-2024 PSA W/ REFLEX TO PHI SEE COMMENTS Abnormal Pr [facility] Comment on above: Result Comment: Test Result Flag Unit RefValue ------ Prostate Health Index Reflex, S Prostate Specific Antigen, S 5.7 H ng/mL <=3.5 Test Performed by: [place] [address] Loading Machine Operator Helper: Eduardo Clark Ph.D.; CLIA# [id number] Performed By: #### 3 4148-7, 49382-1, BMP, CBC #### [facility] ([id number]) [address], [address] [place] [address] URINALYSISon 10-20-2024 Bilirubin Ql (U) Negative Normal Negative [facility] Comment on above: Performed By: #### 3 4148-7, 97926-6, BMP, CBC #### [facility] ([id number]) [address], [address] [place] [address] BLOOD/HGB Negative Normal Negative [facility] Comment on above: Performed By: #### 3 4148-7, 71952-8, BMP, CBC #### [facility] ([id number]) [address], [address] [place] [address] Color (U) Yellow Normal Yellow, Colorless [facility] Comment on above: Performed By: #### 3 4148-7, 16099-8, BMP, CBC #### [facility] ([id number]) [address], [address] [place] [address] Glucose Ql (U) Negative Normal Negative [facility] Comment on above: Performed By: #### 3 4148-7, 13074-0, BMP, CBC #### [facility] ([id number]) [address], [address] [place] [address] Ketones Ql (U) Negative Normal Negative [facility] Comment on above: Performed By: #### 3 4148-7, 40902-6, BMP, CBC #### [facility] ([id number]) [address], [address] [place] [address] Leukocyte esterase Test strip Ql (U) Negative Normal Negative [facility] Comment on above: Performed By: #### 3 4148-7, 77754-0, BMP, CBC #### [facility] ([id number]) [address], [address] [place] [address] Nitrite Ql (U) Negative Normal Negative [facility] Comment on above: Performed By: #### 3 4148-7, 07346-2, BMP, CBC #### [facility] ([id number]) [address], [address] [place] [address] PH,URINE 7.0 Normal 5.0-8.5 [facility] Comment on above: Performed By: #### 3 4148-7, 24100-3, BMP, CBC #### [facility] ([id number]) [address], [address] [place] [address] Protein Ql (U) Negative Normal Negative [facility] Comment on above: Performed By: #### 3 4148-7, 03577-4, BMP, CBC #### [facility] ([id number]) [address], [address] [address] Specific gravity (U) [Rel density] 1.013 Normal 1.003-1.035 [facility] Comment on above: Performed By: #### 3 4148-7, 34699-1, BMP, CBC #### [facility] ([id number]) [address] [address] TURBIDITY Clear Normal Clear [facility] Comment on above: Performed By: #### 3 4148-7, 13386-7, BMP, CBC #### [facility] ([id number]) [address] [address] UROBILINOGEN <1.1 eu/dL Normal <1.1 eu/dL [facility] Comment on above: Performed By: #### 3 4148-7, 90508-0, BMP, CBC #### [facility] ([id number]) [address] [address] APTTon 10-19-2024 aPTT Coag (Bld) [Time] 29 s Normal 26-37 [facility] Comment on above: Performed By: #### 1 9123-9, 2777-1, BMP, CBC, THYR #### [facility] ([id number]) [address] [address] CBC WITH AUTO DIFFERENTIALon 10-19-2024 BASOPHILS ABSOLUTE COUNT (10*3/UL) BY AUTOMATED COUNT 0.0 10*3/uL Normal [facility] Comment on above: Performed By: #### 1 9123-9, 2777-1, BMP, CBC, THYR #### [facility] ([id number]) [address], [address] [place] [address] BASOPHILS RELATIVE PERCENT BY AUTOMATED COUNT 0.4 % Normal [facility] Comment on above: Performed By: #### 1 9122-, 2776-06, BMP, CBC, THYR #### [facility] ([id number]) [address], [facility] [address] [place] [address] CELLAVISION DIFFERENTIAL TYPE AUTOMATED DIFFERENTIAL Normal [facility] Comment on above: Performed By: #### 1 9122-, 2776-06, BMP, CBC, THYR #### [facility] ([id number]) [address], [facility] [address] [place] [address] Eosinophils (Bld) [#/Vol] 0.1 10*3/uL Normal [facility] Comment on above: Performed By: #### 1 9123-02, 2776-06, BMP, CBC, THYR #### [facility] ([id number]) [address], [facility] [address] [place] [address] EOSINOPHILS RELATIVE PERCENT BY AUTOMATED COUNT 2.1 % Normal [facility] Comment on above: Performed By: #### 1 9123-02, 2776-06, BMP, CBC, THYR #### [facility] ([id number]) [address], [address] [address] Erythrocyte distribution width (RBC) [Ratio] 16.6 % High 11.5-15 [facility] Comment on above: Performed By: #### 1 9122-, 2776-06, BMP, CBC, THYR #### [facility] ([id number]) [address], [facility] [address] [place] [address] Hematocrit (Bld) [Volume fraction] 36.9 % Low 39-50 [facility] Comment on above: Performed By: #### 1 9122-, 27712-18, BMP, CBC, THYR #### [facility] ([id number]) [address], [facility] [address] [place] [address] Hemoglobin (Bld) [Mass/Vol] 12.2 g/dL Low 13-17 [facility] Comment on above: Performed By: #### 1 9123-02, 2776-06, BMP, CBC, THYR #### [facility] ([id number]) [address] [address] LYMPHOCYTES ABSOLUTE COUNT (10*3/UL) BY AUTOMATED COUNT 1.1 10*3/uL Normal [facility] Comment on above: Performed By: #### 1 9123-02, 2776-06, BMP, CBC, THYR #### [facility] ([id number]) [address] [address] LYMPHOCYTES RELATIVE PERCENT BY AUTOMATED COUNT 39.1 % Normal [facility] Comment on above: Performed By: #### 1 9123-02, 2776-06, BMP, CBC, THYR #### [facility] ([id number]) [address] [address] MCH (RBC) [Entitic mass] 24.9 pg Low 27-34 [facility] Comment on above: Performed By: #### 1 9123-02, 2776-06, BMP, CBC, THYR #### [facility] ([id number]) [address] [address] MCHC (RBC) [Mass/Vol] 32.9 g/dL Normal 32-[address] [facility] Comment on above: Performed By: #### 1 9123-02, 27712-18, BMP, CBC, THYR #### [facility] ([id number]) [address], [address] [address] MCV (RBC) [Entitic vol] 76 fL Low 80-100 [facility] Comment on above: Performed By: #### 1 9122-, 2776-06, BMP, CBC, THYR #### [facility] ([id number]) [address], [address] [place] [address] MONOCYTES ABSOLUTE COUNT (10*3/UL) BY AUTOMATED COUNT 0.3 10*3/uL Normal [facility] Comment on above: Performed By: #### 1 9122-9, 277-, BMP, CBC, THYR #### [facility] ([id number]) [address], [address] [place] [address] MONOCYTES RELATIVE PERCENT BY AUTOMATED COUNT 10.7 % Normal [facility] Comment on above: Performed By: #### 1 9122-, 2776-06, BMP, CBC, THYR #### [facility] ([id number]) [address], [address] [place] [address] NEUTROPHILS ABSOLUTE COUNT BY AUTOMATED COUNT 1.3 10*3/uL Normal [facility] Comment on above: Performed By: #### 1 9123-02, 2776-06, BMP, CBC, THYR #### [facility] ([id number]) [address], [address] [place] [address] NEUTROPHILS RELATIVE PERCENT BY AUTOMATED COUNT 47.7 % Normal [facility] Comment on above: Performed By: #### 1 9123-, 277-, BMP, CBC, THYR #### [facility] ([id number]) [address], [address] [place] [address] Platelet mean volume (Bld) [Entitic vol] 6.9 fL Low 7-12 [facility] Comment on above: Performed By: #### 1 91-, 277-, BMP, CBC, THYR #### [facility] ([id number]) [address], [address] [place] [address] Platelets (Bld) [#/Vol] 56 10*3/uL Low 150-450 [facility] Comment on above: Performed By: #### 1 9122-, 7-, BMP, CBC, THYR #### [facility] ([id number]) [address], [address] [place] [address] RBC COUNT 4.89 X10E12/L Normal 4.1-5.7 [facility] Comment on above: Performed By: #### 1 9123-9, 277-, BMP, CBC, THYR #### [facility] ([id number]) [address], [address] [address] WBC (Bld) [#/Vol] 2.7 10*3/uL Low 4-11 [facility] Comment on above: Performed By: #### 1 9123-9, 277-, BMP, CBC, THYR #### [facility] ([id number]) [address], [address] [address] CK TOTALon 10-19-2024 CPK 38 U/L Normal 24-195 [place] [facility] Comment on above: Performed By: #### 1 9123-9, 2777-, BMP, CBC, THYR #### [facility] ([id number]) [address], [address] [address] COMPREHENSIVE METABOLIC PANE Jatin 10-19-2024 Albumin [Mass/Vol] 3.0 g/dL Low 3.2-5.3 [facility] Comment on above: Performed By: #### 1 9123-9, 2777-, BMP, CBC, THYR #### [facility] ([id number]) [address], [address] [place] [address] ALP [Catalytic activity/Vol] 34 U/L Low 39-130 [facility] Comment on above: Performed By: #### 1 9123-9, 2777-, BMP, CBC, THYR #### [facility] ([id number]) [address], [address] [place] [address] ALT [Catalytic activity/Vol] 12 U/L Normal <=40 [facility] Comment on above: Performed By: #### 1 9123-9, 277-, BMP, CBC, THYR #### [facility] ([id number]) [address], [address] [place] [address] Anion gap [Moles/Vol] 4 mmol/L Low 5-[address] [facility] Comment on above: Performed By: #### 1 91-9, 2776-06, BMP, CBC, THYR #### [facility] ([id number]) [address], [address] [place] [address] AST [Catalytic activity/Vol] 16 U/L Normal <=41 [facility] Comment on above: Performed By: #### 1 9123-9, 277-, BMP, CBC, THYR #### [facility] ([id number]) [address], [address] [place] [address] Bilirubin [Mass/Vol] 0.8 mg/dL Normal 0.3-1.2 [facility] Comment on above: Performed By: #### 1 9123-9, 27712-18, BMP, CBC, THYR #### [facility] ([id number]) [address], [address] [place] [address] Calcium [Mass/Vol] 7.8 mg/dL Low 8.5-10.5 [facility] Comment on above: Performed By: #### 1 9123-9, 277-, BMP, CBC, THYR #### [facility] ([id number]) [address], [address] [place] [address] Chloride [Moles/Vol] 103 mmol/L Normal 98-109 [facility] Comment on above: Performed By: #### 1 9123-9, 277-, BMP, CBC, THYR #### [facility] ([id number]) [address] [place] [address] CO2 [Moles/Vol] 33 mmol/L High 22-32 [facility] Comment on above: Performed By: #### 1 9123-9, 277-, BMP, CBC, THYR #### [facility] ([id number]) [address] [place] [address] Creatinine [Mass/Vol] 1.04 mg/dL Normal 0.60-1.[address] [facility] Comment on above: Result Comment: METH OD TRACEABLE TO IDMS STANDARD Performed By: #### 1 9123-9, 27712-18, BMP, CBC, THYR #### [facility] ([id number]) [address] [address] GFR/1.73 sq M.predicted among non-blacks MDRD (S/P/Bld) [Vol rate/Area] 83 mL/min/{1.73_m2} Normal >=60 [facility] Comment on above: Result Comment: Repo rt eGFR is based on the CKD-EPI 2020 equation that does not use a race coefficient. Performed By: #### 1 9123-9, 27712-18, BMP, CBC, THYR #### [facility] ([id number]) [address] [address] Glucose [Mass/Vol] 108 mg/dL High 65-99 [facility] Comment on above: Performed By: #### 1 9123-9, 277-, BMP, CBC, THYR #### [facility] ([id number]) [address] [place] [address] Potassium [Moles/Vol] 4.1 mmol/L Normal 3.5-5.[address] [facility] Comment on above: Performed By: #### 1 9123-9, 2777-, BMP, CBC, THYR #### [facility] ([id number]) [address] [place] [address] Protein [Mass/Vol] 5.3 g/dL Low 6.0-8.0 [facility] Comment on above: Performed By: #### 1 9123-9, 2777-1, BMP, CBC, THYR #### [facility] ([id number]) [address], [address] [place] [address] Sodium [Moles/Vol] 140 mmol/L Normal 134-146 [facility] Comment on above: Performed By: #### 1 9123-9, 2777-1, BMP, CBC, THYR #### [facility] ([id number]) [address], [address] [place] [address] Urea nitrogen [Mass/Vol] 21 mg/dL Normal 5-23 [facility] Comment on above: Performed By: #### 1 9123-9, 2777-1, BMP, CBC, THYR #### [facility] ([id number]) [address], [address] [place] [address] CT BRAIN WO CONTon CT BRAIN WO [...] Mujica MD on 10/19/2024 5:00 AM Normal [facility] FERRITINon 10-19-2024 Ferritin [Mass/Vol] 208 ng/mL Normal 24-336 [facility] Comment on above: Performed By: #### 1 9123-9, 2777-1, BMP, CBC, THYR #### [facility] ([id number]) [address], [address] [place] [address] FIBRINOGENon 10-19-2024 FIBRINOGEN 179 mg/dL Low 190-480 [facility] Comment on above: Performed By: #### 1 9123-9, 2777-, BMP, CBC, THYR #### [facility] ([id number]) [address], [address] [place] [address] FOLATEon 10-19-2024 FOLIC ACID 9.7 ng/mL Normal >5.8 [facility] Comment on above: Performed By: #### 1 9123-9, 2777-1, BMP, CBC, THYR #### [facility] ([id number]) [address], [address] [place] [address] IRON AND TIBCon 10-19-2024 Iron [Mass/Vol] 96 ug/dL Normal 50-212 [facility] Comment on above: Performed By: #### 1 9123-9, 2777-1, BMP, CBC, THYR #### [facility] ([id number]) [address], [address] [place] [address] IRON BINDING 245 ug/dL Low 250-425 [facility] Comment on above: Performed By: #### 1 9123-9, 2777-1, BMP, CBC, THYR #### [facility] ([id number]) [address], [address] [place] [address] IRON SATURATION 39 % SATURATION Normal 20-50 [facility] Comment on above: Performed By: #### 1 9123-9, 2777-1, BMP, CBC, THYR #### [facility] ([id number]) [address], [address] [place] [address] Transferrin [Mass/Vol] 175 mg/dL Normal 168-336 [facility] Comment on above: Performed By: #### 1 9123-9, 2777-, BMP, CBC, THYR #### [facility] ([id number]) [address], [address] [place] [address] MAGNESIUMon 10-19-2024 Magnesium [Mass/Vol] 2.0 mg/dL Normal 1.8-2.6 [facility] Comment on above: Performed By: #### 1 9123-9, 2777-, BMP, CBC, THYR #### [facility] ([id number]) [address], [address] [place] [address] MYOGLOBIN, SERUMon SERUM MYOGLOBIN 15.9 ng/mL Low 17.4-105.7 [facility] Comment on above: Performed By: #### 3 4148-7, 46748-1, BMP, CBC #### [facility] ([id number]) [address], [address] [place] [address] PROTIME AND INRon 10-19-2024 INR 1.1 Normal 0.9-1.2 [facility] Comment on above: Performed By: #### 1 9123-9, 2777-1, BMP, CBC, THYR #### [facility] ([id number]) [address], [address] [place] [address] PT Coag (PPP) [Time] 12.3 s Normal 9.8-13.2 [facility] Comment on above: Performed By: #### 1 9123-9, 2777-1, BMP, CBC, THYR #### [facility] ([id number]) [address], [address] [place] [address] RETICULOCYTESon 10-19-2024 RETICULOCYTE COUNT 1.2 % Normal 0.4-2.2 [facility] Comment on above: Performed By: #### 1 9123-9, 2777-1, BMP, CBC, THYR #### [facility] ([id number]) [address], [address] [place] [address] TROP I, HIGH SENSITIVITY 1 H OURon 10-19-2024 TROPONIN I, HIGH SENSITIVITY 5 ng/L Normal <21 [facility] Comment on above: Performed By: #### 1 9123-9, 2777-1, BMP, CBC, THYR #### [facility] ([id number]) [address], [address] [place] [address] TROPONIN I, HIGH SENSITIVITY 0 HOURon 10-19-2024 TROPONIN I, HIGH SENSITIVITY 4 ng/L Normal <21 [facility] Comment on above: Performed By: #### 3 4148-7, 97069-2, BMP, CBC #### [facility] ([id number]) [address], [address] [place] [address] VITAMIN B12on 10-19-2024 Cobalamin (Vitamin B12) [Mass/Vol] 943 pg/mL High 180-914 [facility] Comment on above: Performed By: #### 1 9123-9, 2777-1, BMP, CBC, THYR #### [facility] ([id number]) [address], [address] [place] [address] XR CHEST 1 VWon 10-19-2024 XR CHEST [...] Taran Carcamo MD on 10/19/2024 4:29 AM ICaesar MD have personally reviewed the image(s) and agree with and/or edited the report Finalized by Caesar Sesay MD on 10/19/2024 4:33 AM Normal [facility] CNOVon 07-30-2024 [facility]OV [facility] ESTELLA JEFFERY ([id number]) 1965 M Date Time Provider Department 07/30/24 12:40 PM FIDELINA FISHER [facility] During your visit today, we recorded the following information about you: Temperature Pulse Blood pressure Weight 97.6 degrees 84/minute 99/63 76.2 kg Fidelina Fisher, HEAD SULFIDE OPERATOR.WIRE BRUSH MAKER 08/12/2024 10:55 PM Signed July 30, 2024 Reason for visit: Patient presents with: Consult Previous Visit: No previous PMANDR. HPI (brief) Estella Jeffery is a 59 year old male. PMHx of TBI and HDL. He had an unwitnessed fall down the stairs. Per family he had a fall in May 2024. He was evaluated at [facility] following the fall. Per he had an [...] surrounding doctors appointments, he associates doctors with [facility]. Per family he had a rough admission with jalen at [facility] in [place]. He was started on Seroquel at bedtime. [...] Cognition: - has underline dementia. Following with [facility]. Sleep: - He has been having issues [...] and cranio-cervical junction. Flow voids documented in [facility] [place] and dural venous sinuses. No [...] jaundice UE SAB EF EE WE WF Home Housekeeper R 5/5 5/5 5/5 5/5 5/5 5/5 L 5/5 5/5 5/5 5/5 5/5 5/5 LE HF KF KE PF DF R 5/5 5/5 5/5 5/5 5/5 L 5/5 5/5 5/5 5/5 5/5 IMPRESSION: Estella Jeffery is a 59 year old male. PMHx of TBI and HDL. He had an unwitnessed fall (more content not included)... Normal [facility] LATIAANNAESTELLA R ([id number]) 1965 M Date Time Provider Department 07/20/24 [...] our network. Referring MD will confirm with employment evaluator/case manager that referrals were sent to all 3. If the patient is discharged home or to SNF, we can potentially expedite an appointment with our PMR colleagues/TBI multidisciplinary clinic. I will alert Drs. Aguilar and Earl to the referral. Janice Mcdermott MD Allergies As of Date: 07/20/2024 (No Known Allergies) Date Reviewed: 10/12/2022 Reviewed by: Miguelito Chicas, SYD.WIRE BRUSH MAKER - Fully Assessed Prescriptions as of 07/20/2024 [...] Encounter Status:Closed by JANICE MCDERMOTT on 07/20/24 [facility] Patient Letter FTon 2024 Patient Letter [facility] Patient Letter [facility] July 20, 2024 ESTELLA JEFFERY [address] [place] [id number] : 1965 Dear Mr. Jeffery, I am [...] Office Sincerely, Dr. Danni Graham [facility] [address] [place] [address]. [place] [address] [facility] TANNER Virus Antibody Reflex to Inhibition Assayon 07-19-2024 Interpretation and review of laboratory results [facility] TANNER virus Ab IA Ql Positive Abnormal [facility] Comment on above: NOTE Index interpretive criteria: [...] index.(1) (1) TYSABRI(natalizumab)US Prescribing Information Performed by: [employer] [address] [place] [address] Jessenia Bagley MD, PhD, TANNER Virus Index 2.94 [facility] Comment on above: NOTE Performed by: [facility] [address] [place] [address] Jessenia Bagley MD, PhD, [facility] 07-18-2024 CNPN Telephone (NEIND4) ESTELLA JEFFERY ([id number]) 1965 M Date Time Provider Department 07/18/24 NARCISO GUERRA NEIND4 During your visit today, we recorded the following information about you: Benoit Gaby 07/18/2024 9:22 AM Signed Patient returned your call and can be reached at: Call patient at: on cell [phone] (home) [phone] (cell) Abbey Amato MA 07/18/2024 11:23 AM Signed Patient mailbox is full unable to leave message Roger Holland, MARCI 07/19/2024 12:42 PM Signed Spoke with Dr Harmon (sp?) from [facility] regarding patient. Family is requesting transfer to a [facility] TBI center, inpatient. I advised that Dr Guerra cannot assist in this matter. Leana Roca, RN 07/20/2024 3:19 PM Addendum Spoke to , Kari. Pt is currently at [facility]. Pt is being denied an admit to rehab facility. I am unable to view notes from that hospital. Suggestion given to try [facility] as [facility] does not have a TBI clinic. Family will have to work with staff at [facility]. Verbalized understanding. Allergies As of Date: 07/18/2024 (No Known Allergies) Date Reviewed: 10/12/2022 Reviewed by: Miguelito Chicas APRN.WIRE BRUSH MAKER - Fully Assessed Reason for Visit: Patient Question [6077] Prescriptions as of 07/20/2024 - donepezil (ARICEPT) [...] Status:Closed by LEANA ROCA on 07/20/24 Normal [facility] BASIC METABOLIC PANLon 07-17 Anion gap [Moles/Vol] 4 mmol/L Low 5-[address] [facility] Comment on above: Performed By: #### 1 9123-9, 2777-, BMP, CBC, THYR #### [facility] ([id number]) [address], [address] [place] [address] Calcium [Mass/Vol] 8.8 mg/dL Normal 8.5-10.5 [facility] Comment on above: Performed By: #### 1 9123-9, 2777-, BMP, CBC, THYR #### [facility] ([id number]) [address], [address] [place] [address] Chloride [Moles/Vol] 104 mmol/L Normal 98-109 [facility] Comment on above: Performed By: #### 1 9123-9, 2777-, BMP, CBC, THYR #### [facility] ([id number]) [address], [address] [place] [address] CO2 [Moles/Vol] 33 mmol/L High 22-32 [facility] Comment on above: Performed By: #### 1 9123-9, 277-, BMP, CBC, THYR #### [facility] ([id number]) [address], [address] [place] [address] Creatinine [Mass/Vol] 0.95 mg/dL Normal 0.60-1.[address] [facility] Comment on above: Result Comment: METH OD TRACEABLE TO IDMS STANDARD Performed By: #### 1 91-9, 277-, BMP, CBC, THYR #### [facility] ([id number]) [address], [facility] [address] [place] [address] eGFR (CKD-EPI) NON-RACE DEPENDENT >90 Normal >[address] [facility] Comment on above: Result Comment: Reported eGFR is based on the CKD-EPI 2020 equation that does not use a race coefficient. Performed By: #### 1 9123-9, 277-, BMP, CBC, THYR #### [facility] ([id number]) [address], [address] [place] [address] Glucose [Mass/Vol] 97 mg/dL Normal 65-99 [facility] Comment on above: Performed By: #### 1 9123-9, 2777-, BMP, CBC, THYR #### [facility] ([id number]) [address], [address] [place] [address] Potassium [Moles/Vol] 4.3 mmol/L Normal 3.5-5.[address] [facility] Comment on above: Performed By: #### 1 9123-9, 2777-, BMP, CBC, THYR #### [facility] ([id number]) [address], [address] [place] [address] Sodium [Moles/Vol] 141 mmol/L Normal 134-146 [facility] Comment on above: Performed By: #### 1 9123-9, 2777-1, BMP, CBC, THYR #### [facility] ([id number]) [address] [place] [address] Urea nitrogen [Mass/Vol] 20 mg/dL Normal 5-23 [facility] Comment on above: Performed By: #### 1 9123-9, 2777-1, BMP, CBC, THYR #### [facility] ([id number]) [address] [place] [address] Basic Metabolic Panelon 06-21 Anion gap [Moles/Vol] 4 mmol/L Low 5 - 15 mmol/L [facility] Calcium [Mass/Vol] 8.8 mg/dL 8.5 - 10. 5 mg/dL [facility] Chloride [Moles/Vol] 104 mmol/L 98 - 10 9 mmol/L [facility] CO2 [Moles/Vol] 33 mmol/L High 22 - 32 mmol/L [facility] Creatinine [Mass/Vol] 0.95 mg/dL 0.60 - 1.30 mg/dL [facility] Comment on above: METHOD TRACEABLE TO IDPA STANDARD eGFR (CKD-EPI)non-race dependent - PINF [facility] Comment on above: Reported eGFR is based on the CKD-EPI 2020 equation that does not use a race coefficient. Glucose [Mass/Vol] 97 mg/dL 65 - 99 mg/dL [facility] Interpretation and review of laboratory results Abnormal [facility] Potassium [Moles/Vol] 4.3 mmol/L 3.5 - 5.0 mmol/L [facility] Sodium [Moles/Vol] 141 mmol/L 134 - 146 mmol/L [facility] Urea nitrogen [Mass/Vol] 20 mg/dL 5 - 23 mg/dL [facility] CBC AND AUTO DIFFon 07-17-19 25 ABSOLUTE BASOPHIL 0.0 X10E9/L Normal 0.0-0.2 [facility] Comment on above: Performed By: #### 1 9123-9, 2777-1, BMP, CBC, THYR #### [facility] ([id number]) [address], [address] [place] [address] ABSOLUTE NEUTROPHIL 2.5 X10E9/L Normal 1.5-6.6 [facility] Comment on above: Performed By: #### 1 9123-9, 2777-, BMP, CBC, THYR #### [facility] ([id number]) [address] [place] [address] Basophils/100 WBC (Bld) 0.6 % Normal [facility] Comment on above: Performed By: #### 1 91-9, 277-, BMP, CBC, THYR #### [facility] ([id number]) [address] [place] [address] Eosinophils (Bld) [#/Vol] 0.1 10*3/uL Normal 0.0-0.4 [facility] Comment on above: Performed By: #### 1 91-, 27712-18, BMP, CBC, THYR #### [facility] ([id number]) [address] [place] [address] Eosinophils/100 WBC (Bld) 1.9 % Normal [facility] Comment on above: Performed By: #### 1 9123-9, 2777-, BMP, CBC, THYR #### [facility] ([id number]) [address], [address] [place] [address] Erythrocyte distribution width (RBC) [Ratio] 15.8 % High 11.5-15.0 [facility] Comment on above: Performed By: #### 1 9123-9, 277-, BMP, CBC, THYR #### [facility] ([id number]) [address], [address] [place] [address] Hematocrit (Bld) [Volume fraction] 41.8 % Normal 39-49 [facility] Comment on above: Performed By: #### 1 9123-9, 27712-18, BMP, CBC, THYR #### [facility] ([id number]) [address], [address] [place] [address] Hemoglobin (Bld) [Mass/Vol] 13.9 g/dL Normal 13.0-17.0 [facility] Comment on above: Performed By: #### 1 9123-9, 2776-06, BMP, CBC, THYR #### [facility] ([id number]) [address] [place] [address] Lymphocytes (Bld) [#/Vol] 1.2 10*3/uL Normal 1.0-3.5 [facility] Comment on above: Performed By: #### 1 91-9, 27712-18, BMP, CBC, THYR #### [facility] ([id number]) [address] [place] [address] Lymphocytes/100 WBC (Bld) 29.7 % Normal [facility] Comment on above: Performed By: #### 1 9123-9, 27712-18, BMP, CBC, THYR #### [facility] ([id number]) [address], [address] [place] [address] MCH (RBC) [Entitic mass] 25.1 pg Low 27-34 [facility] Comment on above: Performed By: #### 1 9123-9, 27712-18, BMP, CBC, THYR #### [facility] ([id number]) [address], [address] [place] [address] MCHC (RBC) [Mass/Vol] 33.2 g/dL Normal 32-[address] [facility] Comment on above: Performed By: #### 1 9123-9, 27712-18, BMP, CBC, THYR #### [facility] ([id number]) [address], [address] [place] [address] MCV (RBC) [Entitic vol] 76 fL Low 80-100 [facility] Comment on above: Performed By: #### 1 91, 27712-18, BMP, CBC, THYR #### [facility] ([id number]) [address] [place] [address] Monocytes (Bld) [#/Vol] 0.3 10*3/uL Normal 0-0.9 [facility] Comment on above: Performed By: #### 1 9123-02, 2776-06, BMP, CBC, THYR #### [facility] ([id number]) [address], [facility] [address] [place] [address] Monocytes/100 WBC (Bld) 8.2 % Normal [facility] Comment on above: Performed By: #### 1 9123-02, 2776-06, BMP, CBC, THYR #### [facility] ([id number]) [address], [address] [place] [address] Neutrophils/100 WBC (Bld) 59.6 % Normal [facility] Comment on above: Performed By: #### 1 9123-02, 2776-06, BMP, CBC, THYR #### [facility] ([id number]) [address], [facility] [address] [place] [address] Platelet mean volume (Bld) [Entitic vol] 7.7 fL Normal 7-12 [facility] Comment on above: Performed By: #### 1 9122-, 27712-18, BMP, CBC, THYR #### [facility] ([id number]) [address] [place] [address] Platelets (Bld) [#/Vol] 180 10*3/uL Normal 150-450 [facility] Comment on above: Performed By: #### 1 91-, 27712-18, BMP, CBC, THYR #### [facility] ([id number]) [address], [address] [place] [address] RBC COUNT 5.54 X10E12/L Normal 4.10-5.70 [facility] Comment on above: Performed By: #### 1 9123-9, 2777-1, BMP, CBC, THYR #### [facility] ([id number]) [address], [address] [place] [address] WBC (Bld) [#/Vol] 4.1 10*3/uL Normal 4.0-11.0 [facility] Comment on above: Performed By: #### 1 9123-9, 2777-1, BMP, CBC, THYR #### [facility] ([id number]) [address] [place] [address] CBC auto differentialon 06-21 Basophils (Bld) [#/Vol] 0 10*3/uL [facility] Basophils/100 WBC (Bld) 0.6 % [facility] Eosinophils (Bld) [#/Vol] 0.1 10*3/uL [facility] Eosinophils/100 WBC (Bld) 1.9 % [facility] Erythrocyte distribution width (RBC) [Ratio] 15.8 % High 11.5 - 15.0 % [facility] Hematocrit (Bld) [Volume fraction] 41.8 % 39 - 49 % [facility] Hemoglobin (Bld) [Mass/Vol] 13.9 g/dL 13.0 - 17.0 g/dL [facility] Interpretation and review of laboratory results Abnormal [facility] Lymphocytes (Bld) [#/Vol] 1.2 10*3/uL [facility] Lymphocytes/100 WBC (Bld) 29.7 % [facility] MCH (RBC) [Entitic mass] 25.1 pg Low 27 - 34 pg [facility] MCHC (RBC) [Mass/Vol] 33.2 g/dL 32 - 3 6 g/dL [facility] MCV (RBC) [Entitic vol] 76 fL Low 80 - 100 fL [facility] Monocytes (Bld) [#/Vol] 0.3 10*3/uL [facility] [...] CNPNon 07-17-2024 CNPN Telephone ([id number]) ESTELLA JEFFERY ([id number]) 1965 M Date Time Provider Department 07/17/24 NARCISO GUERRA4 During your visit today, we recorded the following information about you: Laboy Gaby 07/17/2024 2:37 PM Signed Pt keila and is in [facility] and is requesting help with getting pt transferred to a [facility] facility Please call pts [phone] Roger Holland, MARCI 07/18/2024 8:58 AM Signed -LVMTCB We are unable to assist in this matter. Pt last seen 04/2022 Allergies As of Date: 07/17/2024 (No Known Allergies) Date Reviewed: 10/12/2022 Reviewed by: Miguelito Chicas APRN.[employer] - Fully Assessed Reason for Visit: Patient Question [4929] Prescriptions as of 07/18/2024 - donepezil (ARICEPT) [...] Status:Closed by ROGER HOLLAND on 07/18/24 Normal [facility] Encephalopathy - Autoimmune RUSSELL Cheneyon 07-17-2024 Encephalopathy autoimmune Ab panel (CSF) SEE COMMENTS 07/17/2024 05:00 PM [facility] Comment on above: NOTE Test Result Flag [...] Encephalopathy autoimmune Ab panel (CSF)on 07-17-2024 [facility] MAGNESIUMon 07-17-2024 Magnesium [Mass/Vol] 2.2 mg/dL Normal 1.8-2.6 [facility] Comment on above: Performed By: #### 1 9123-9, 2777-1, BMP, CBC, THYR #### [facility] ([id number]) [address] [place] [address] Magnesiumon 07-17-2024 Magnesium [Mass/Vol] 2.2 mg/dL 1.8 - 2 .6 mg/dL [facility] No Panel Informationon 07-17 [facility] Bacteria identified Cx Nom ( CSF)on 07-15-2024 Microscopic observation Gram stain Nom (Unsp spec) WHITE BLOOD CELLS PRESENT [facility] Microscopic observation Gram stain Nom (Unsp spec) NO ORGANISMS SEEN [facility] Microscopic observation Gram stain Nom (Unsp spec) ON CONCENTRATED SMEAR [facility] Service comment (Unsp spec) [Interp] NO GROWTH 5 DAYS [facility] Flow Cytometry CSFon 025 Flow cytometry specialist review Ramone (Unsp spec) [Interp] SEE SEPARATE REPORT, REVIEWED BY PATHOLOGIST [facility] Flow cytometry specialist re view Ramone (Unsp spec) [Interp]on 2024 [facility] Lyme CONTAINER SHOP WELDER Infection IgG w/ An tibody Index Reflex, CSF and Serumon 07-13-2024 Pathologist interpretation (Bld) [Interp] See Note [facility] Comment on above: NOTE No antibodies [...] Administration. Reference Lab Test ID Negative Negative [facility] Reference Lab Test ID See Note [facility] Comment on above: NOTE CSF screen was negative for IgG-class antibodies to Lyme Borrelia species. Testing for IgG-class antibodies to Borrelia in serum is not indicated and was not performed. Test Performed by: [facility] [address] [place] [address] Loading Machine Operator Helper: Eduardo Clark Ph.D.; CLIA# [id number] [facility] Cytologyon 07-11-2024 [facility] [address] [place] [address] Cytology Consultation Patient Name:ESTELLA JEFFERY:1965 (Age: 58)Gender:MTaken:06/21Reported:2024 16:49Physician(s):Shun Haley M.D. ([phone])Copy To:Quinton Harrell M.D. Rec. #:[id number]: #[id number] Final Cytologic Diagnosis Cerebrospinal fluid: No malignant cells identified. 07/11/2024 Interpretation [place] [address], License number: [id number].Electro nically Signed Out By Derick Lorenz MD Additional Report(s): Flow Cytometry-Surg/BM/NG Date Reported: 07/13/2024 No flow cytometric abnormalities. The specimen is hypocellular with a sparse lymphoid component. Immunophenotypic analysis of the lymphoid cells demonstrates a mixed population of few phenotypically unremarkable T-cells and polyclonal B-cells. No monoclonal lymphoid population is detected. Immunophenotyping antibodies tested: CD3, CD4, CD5, CD7, CD8, CD19, CD20, CD45, [place], and Lambda. Immunophenotyping Comment: Immunophenotyping has been used in this diagnostic evaluation. This test was developed and its performance characteristics determined by the [facility] Department. It has not been [...] perform high-complexity clinical testing. Interpretation performed at [facility] [address] [place] [address], License number: [id number]. 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 Also received is one cytospin slide from Hematology. Source of Specimen Cerebrospinal fluid Non INFORMATION ASSURANCE ThinPrep, Cytospin Slide Fee Code(s): 1; 14917, [address] [facility] IgG synthesis rate Calc (S+C SF) [Mass/Time]on 07-11-2024 CSF IgG Index Profile SEE COMMENTS 07/11/2024 12:55 PM [facility] Comment on above: NOTE Test Result Flag [...] mg/dL 3500 - 5000 Test Performed by: [address] [address] Loading Machine Operator Helper: Eduardo Clark Ph.D.; CLIA# [id number] Test Performed by: [address] [address] Loading Machine Operator Helper: Eduardo Clark Ph.D.; CLIA# [id number] [facility] Reagin Ab VDRL Ql (CSF)on [facility] VDRL, Spinal Fluidon 025 Reagin Ab VDRL Ql (CSF) Negative Negative [facility] Comment on above: NOTE Test Performed by: [facility] - [address] [address] Loading Machine Operator Helper: Eduardo Clark Ph.D.; CLIA# [id number] 14-3-3 Protein Tau, Total, C SFon 07-10-2024 Creutzfeldt-Osei Disease SEE NOTE Normal [facility] Comment on above: Result Comment: [...] thorough examination of autopsy brain tissue. The [facility] is able to offer a no-cost autopsy for this patient. Autopsy can help to delineate whether prion disease is sporadic, acquired or genetic in etiology. [facility] staff ([phone]) are available to work with healthcare providers and the patient's family to plan an autopsy, if desired. Reviewed and Approved By: Tia Weinberg, PhD Performed By: [facility] [address] [facility] [address] [place] [address] Performed By: #### 1 9123-9, 2777-1, BMP, CBC, THYR #### [facility] ([id number]) [address], [address] [place] [address] CSF CULTUREon 07-10-2024 Bacteria identified Cx Nom (CSF) GRAM STAIN WHITE BLOOD CELLS PRESENT NO ORGANISMS SEEN ON CONCENTRATED SMEAR CULTURE RESULTS NO GROWTH 5 DAYS Normal [facility] Comment on above: Performed By: #### 1 9123-9, 2777-1, BMP, CBC, THYR #### [facility] ([id number]) [address], [address] [place] [address] CSF spinal fluid cell counto n 07-10-2024 Clarity (CSF) CLEAR [facility] Color (CSF) COLORLESS [facility] Color (Spun CSF) COLORLESS [facility] Differential panel (Dial fld) NUCLEATED CELLS <5/uL; DIFF NOT TESTED [facility] Interpretation and review of laboratory results Abnormal [facility] Laboratory comment Ramone (Report) TUBE 3 [facility] Nucleated cells Manual cnt (CSF) [#/Vol] 0.001 10*3/uL 0 - 5 /uL [facility] RBC Manual cnt (CSF) [#/Vol] 48 /uL High 0 - 1 /uL [facility] Csf total proteinon 07-10-19 25 Protein (CSF) [Mass/Vol] 45 mg/dL 15 - 45 mg/dL [facility] Cytologyon 07-10-2024 Cytology Normal [facility] Comment on above: Result Comment: [facility] [address] [place] [address] Cytology Consultation Patient Name:ESTELLA JEFFERY:1965 (Age: 58)Gender:MTaken:07/10/2024Reported:07/11/2024 16:49Physician(s):Arnulfo Haley M.D. ([phone])Copy To:Lonnie Baker M.D. Nichol Heath M.D. Rec. #:[id number]: #[id number] Final Cytologic Diagnosis Cerebrospinal fluid: No malignant cells identified. gr/07/11/2024 Interpretation performed at [facility], [address] [place] [address], License number: [id number].Electronically Signed Out By Derick Lorenz MD Additional Report(s): Flow Cytometry-Surg/BM/NG Date Reported: 07/13/2024 No flow cytometric abnormalities. The specimen is hypocellular with a sparse lymphoid component. Immunophenotypic analysis of the lymphoid cells demonstrates a mixed population of few phenotypically unremarkable T-cells and polyclonal B-cells. No monoclonal lymphoid population is detected. Immunophenotyping antibodies tested: CD3, CD4, CD5, CD7, CD8, CD19, CD20, CD45, [place], and Lambda. Immunophenotyping Comment: Immunophenotyping has been used in this diagnostic evaluation. This test was developed and its performance characteristics determined by the [facility]. It has not been [...] perform high-complexity clinical testing. Interpretation performed at [facility] [address] [place] [address], License number: [id number]. 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 Also received is one cytospin slide from Hematology. Source of Specimen Cerebrospinal fluid Non INFORMATION ASSURANCE ThinPrep, Cytospin Slide Fee Code(s): 1; 83331, 03773 Encephalopathy autoimmune Ab panel (CSF)on 07-10-2024 ENCEPHALOPATHY-AUTOIM MUNE EVAL - CSF SEE COMMENTS 07/17/2024 05:00 PM Normal [facility] Comment on above: Result Comment: [...] 1 9123-9, 2777-1, BMP, CBC, THYR #### [facility] ([id number]) [address], [address] [place] [address] Flow cytometry specialist re view Ramone (Unsp spec) [Interp]on 07-10-2024 FLOW CYTOMETRY CSF SEE SEPARATE REPORT, REVIEWED BY PATHOLOGIST Normal [facility] Comment on above: Performed By: #### 1 9123-9, 2777-1, BMP, CBC, THYR #### [facility] ([id number]) [address], [address] [place] [address] Glucose (CSF) [Mass/Vol]on 0 07-10-2024 CSF GLUCOSE 66 mg/dL Normal 40-[address] [facility] Comment on above: Performed By: #### 1 9123-9, 2777-1, BMP, CBC, THYR #### [facility] ([id number]) [address], [address] [place] [address] Glucose, CSFon 07-10-2024 Glucose (CSF) [Mass/Vol] 66 mg/dL 40 - 70 mg/dL [facility] LYME CONTAINER SHOP WELDER Infection IgG w/ An tibody Index Reflex, CSF and Serumon 07-10-2024 LYME CONTAINER SHOP WELDER IGG INTERP. See Note Normal [facility] Comment on above: Result Comment: [...] the U.S. Food and Drug Administration. LYME CONTAINER SHOP WELDER IGG, CSF Negative Normal Negative [facility] LYME CONTAINER SHOP WELDER IGG, SERUM See Note Normal [facility] Comment on above: Result Comment: NOTE CSF screen was negative for IgG-class antibodies to Lyme Borrelia species. Testing for IgG-class antibodies to Borrelia in serum is not indicated and was not performed. Test Performed by: [facility] [address] [place] [address] Loading Machine Operator Helper: Eduardo Clark Ph.D.; CLIA# [id number] Lumbar Punctureon 07-10-2024 Arnulfo Haley MD 07/10/2024 [...] to verify the correct patient, procedure, equipment, intelligence support officer and site/side marked as required. Anesthesia: local infiltration Anesthesia: Local Anesthetic: lidocaine 1% without epinephrine Sedation: Patient sedated: yes Lumbar space: L3-L4 interspace Patient's position: left lateral decubitus Opening pressure: 12 cm H2O Fluid appearance: clear Tubes of fluid: 4 Total volume: 17.5 ml Post-procedure: pressure dressing applied and adhesive bandage applied Procedure was completed Complications: none MANUALLY TRANSCRIBED RESULTS [facility] MENINGITIS PANELon 5 Meningitis+Encephalit is pathogens [...] NEOFORMANS Not detected (qualifier value) Normal NDET [facility] Comment on above: Performed By: #### 1 9123-9, 2777-1, BMP, CBC, THYR #### [facility] ([id number]) [address], [address] [place] [address] MR BRAIN W WO CONTon 025 MR BRAIN W WO CONT MR BRAIN W WO CONT STUDY: MRI brain with without contrast . CLINICAL HISTORY: Mental status change, unknown cause COMPARISON: July 03, 2024 brain MRI from [facility] Procedure: Multiplanar, multisequence imaging performed [...] and cranio-cervical junction. Flow voids documented in apache of [place] and dural venous sinuses. No [...] Lu MD on 07/10/2024 11:31 AM Normal [facility] MR Brain WO and W contrast I Von 07-10-2024 STUDY: MRI brain with without contrast . CLINICAL HISTORY: Mental status change, unknown cause COMPARISON: July 03, 2024 brain MRI from [facility] Procedure: Multiplanar, multisequence imaging performed [...] and cranio-cervical junction. Flow voids documented in apache of [place] and dural venous sinuses. No [...] COMPARISON: July 03, 2024 brain MRI from [facility] Procedure: Multiplanar, multisequence imaging performed [...] and cranio-cervical junction. Flow voids documented in apache of [place] and dural venous sinuses. No [...] Wilson Lu MD on 07/10/2024 11:31 AM [facility] Radiology Study observation (narrative) [facility] MR Brain WO and W contrast I VOrdered By: Wilson Lu on 07-10-2024 [facility] Work Phone: Meningitis+Encephalitis path ogens DNA and RNA panel LILLIANA+non-probe (CSF)on 07-10-2024 C. gattii+neoformans DNA LILLIANA+non-probe Ql (CSF) Not detected Not Detected^No t Detected [facility] CMV DNA LILLIANA+non-probe Ql (CSF) Not detected Not Detected^No t Detected [facility] E. coli K1 DNA LILLIANA+non-probe Ql (CSF) Not detected Not Detected^No t Detected [facility] Enterovirus RNA LILLIANA+non-probe Ql (CSF) Not detected Not Detected^No t Detected [facility] H. influenzae DNA LILLIANA+non-probe Ql (CSF) Not detected Not Detected^No t Detected [facility] HHV 6 DNA LILLIANA+non-probe Ql (CSF) Not detected Not Detected^No t Detected [facility] HSV 1 DNA LILLIANA+non-probe Ql (CSF) Not detected Not Detected^No t Detected [facility] HSV 2 DNA LILLIANA+non-probe Ql (CSF) Not detected Not Detected^No t Detected [facility] L. monocytogenes DNA LILLIANA+non-probe Ql (CSF) Not detected Not Detected^No t Detected [facility] N. meningitidis DNA LILLIANA+non-probe Ql (CSF) Not detected Not Detected^No t Detected [facility] Parechovirus A RNA LILLIANA+non-probe Ql (CSF) Not detected Not Detected^No t Detected [facility] S. agalactiae DNA LILLIANA+non-probe Ql (CSF) Not detected Not Detected^No t Detected [facility] S. pneumoniae DNA LILLIANA+non-probe Ql (CSF) Not detected Not Detected^No t Detected [facility] Specimen source Nom (Body fld) CEREBROSPINAL FLUID [facility] VZV DNA LILLIANA+non-probe Ql (CSF) Not detected Not Detected^No t Detected [facility] No Panel Informationon 07-10 [facility] Protein (CSF) [Mass/Vol]on 0 07-10-2024 CSF TOTAL PROTEIN 45 mg/dL Normal 15-45 [facility] Comment on above: Performed By: #### 1 9123-9, 2777-1, BMP, CBC, THYR #### [facility] ([id number]) [address], [address] [place] [address] Reagin Ab VDRL Ql (CSF)on VDRL, Spinal Fluid Negative Normal Negative [facility] Comment on above: Result Comment: NOTE Test Performed by: [facility] [address] [place] [address] Loading Machine Operator Helper: Eduardo Clark Ph.D.; CLIA# [id number] Performed By: #### 1 9123-9, 2777-1, BMP, CBC, THYR #### [facility] ([id number]) [address], [address] [place] [address] SPINAL FLUID CELL CTon 07-10 CSF CLARITY CLEAR Normal [facility] Comment on above: Performed By: #### 1 9123-9, 2777-1, BMP, CBC, THYR #### [facility] ([id number]) [address], [address] [place] [address] CSF COLOR COLORLESS Normal [facility] Comment on above: Performed By: #### 1 9123-9, 2777-1, BMP, CBC, THYR #### [facility] ([id number]) [address], [address] [place] [address] CSF COMMENT TUBE [address] [facility] Comment on above: Performed By: #### 1 9123-9, 2777-1, BMP, CBC, THYR #### [facility] ([id number]) [address], [address] [place] [address] CSF NUCLEATED CELLS 1 /uL Normal 0-5 [facility] Comment on above: Performed By: #### 1 9123-9, 2777-1, BMP, CBC, THYR #### [facility] ([id number]) [address], [address] [place] [address] CSF RBC 48 /uL High 0-1 [facility] Comment on above: Performed By: #### 1 9123-9, 2777-1, BMP, CBC, THYR #### [facility] ([id number]) [address], [address] [place] [address] CSF SUPERNATANT COLORLESS Normal [facility] Comment on above: Performed By: #### 1 9123-9, 2777-1, BMP, CBC, THYR #### [facility] ([id number]) [address], [address] [place] [address] SF DIFF NUCLEATED CELLS <5/uL; DIFF NOT TESTED [facility] Comment on above: Performed By: #### 1 9123-9, 2777-1, BMP, CBC, THYR #### [facility] ([id number]) [address], [address] [place] [address] B. burgdorferi IgG+IgM Qn (S )on 07-09-2024 [facility] ECG 12 leadon 07-09-2024 TRACEMASTERVUE [facility] IgG synthesis rate Calc (S+C SF) [Mass/Time]on 07-09-2024 CSF IgG Index Profile SEE COMMENTS 07/11/2024 12:55 PM Normal [facility] Comment on above: Result Comment: [...] mg/dL 3500 - 5000 Test Performed by: [facility] [address] [place] [address] Loading Machine Operator Helper: Eduardo Clark Ph.D.; CLIA# [id number] Test Performed by: [facility] [address] [place] [address] Loading Machine Operator Helper: Eduardo Clark Ph.D.; CLIA# [id number] TANNER Virus Antibody W/Reflexon 07-09-2024 TANNER Virus Antibody Positive Abnormal [facility] Comment on above: Result Comment: NOTE Index [...] index.(1) (1) TYSABRI(natalizumab)US Prescribing Information Performed by: [facility] [address] [place] [address] Jessenia Bagley MD, PhD, TANNER Virus Index 2.94 High [facility] Comment on above: Result Comment: NOTE Performed by: [facility] [address] [place] [address] Jessenia Bagley MD, PhD, Laboratory comment Ramone (Repo rt)on 07-09-2024 [facility] UNLISTED LAB TEST Sent to reference lab Normal [facility] Lyme Totalon 07-09-2024 B. burgdorferi IgG+IgM Qn (S) A1 NINF - 0.9 A1 [facility] Comment on above: Interpretation-------- <0.9 Negative [...] (PPP) [Relative time] 1.1 {INR} Normal 0.8-1.1 [facility] Comment on above: Performed By: #### 1 9123-9, 2777-1, BMP, CBC, THYR #### [facility] ([id number]) [address] [place] [address] PT Coag (PPP) [Time] 12.4 s Normal 9.8-13.2 [facility] Comment on above: Performed By: #### 1 9123-9, 2777-1, BMP, CBC, THYR #### [facility] ([id number]) [address] [place] [address] Protime & INRon 07-09-2024 INR Coag (PPP) [Relative time] 1.1 {INR} [facility] PT Coag (PPP) [Time] 12.4 s [facility] Syphilis Total(Unknown Syphi lis Status)on 07-09-2024 T. pallidum IgG+IgM IA Ql (S) [facility] Comment on above: NON REACTIVE No serologic evidence of infection to Treponema pallidum (syphilis). Repeat testing may be considered in patients with suspected acute or primary syphilis in 2 to 4 weeks. T. pallidum IgG+IgM IA Ql (S )on 07-09-2024 [facility] Unlisted Lab Test TANNER viruson 07-09-2024 Laboratory comment Ramone (Report) Sent to reference lab [facility] AMMONIAon 07-08-2024 Ammonia (P) [Moles/Vol] 40 umol/L Normal 18-72 [facility] Comment on above: Result Comment: SPEC IMEN HEMOLYZED, RESULTS INCREASED SLIGHTLY HEMOLYZED NEW REFERENCE RANGE Performed By: #### 1 9123-9, 2777-1, BMP, CBC, THYR #### [facility] ([id number]) [address] [address], [address] [place] [address] Ammoniaon 07-08-2024 Ammonia (P) [Moles/Vol] 40 umol/L 18 - 72 umol/L [facility] Comment on above: SPECIMEN HEMOLYZED, RESULTS INCREASED SLIGHTLY HEMOLYZED NEW REFERENCE RANGE Ammonia (P) [Moles/Vol]on [facility] BASIC METABOLIC PANLon 07-08 Anion gap [Moles/Vol] 6 mmol/L Normal 5-[address] [facility] Comment on above: Performed By: #### 1 9123-9, 2777-1, BMP, CBC, THYR #### [facility] ([id number]) [address] [address], [address] [place] [address] Calcium [Mass/Vol] 8.3 mg/dL Low 8.5-10.5 [facility] Comment on above: Performed By: #### 1 9123-9, 2777-1, BMP, CBC, THYR #### [facility] ([id number]) [address], [address] [place] [address] Chloride [Moles/Vol] 107 mmol/L Normal 98-109 [facility] Comment on above: Performed By: #### 1 9123-9, 2777-, BMP, CBC, THYR #### [facility] ([id number]) [address], [address] [place] [address] CO2 [Moles/Vol] 29 mmol/L Normal 22-32 [facility] Comment on above: Performed By: #### 1 9123-9, 2777-, BMP, CBC, THYR #### [facility] ([id number]) [address], [address] [place] [address] Creatinine [Mass/Vol] 0.91 mg/dL Normal 0.60-1.[address] [facility] Comment on above: Result Comment: METH OD TRACEABLE TO IDMS STANDARD Performed By: #### 1 9123-9, 2777-, BMP, CBC, THYR #### [facility] ([id number]) [address], [address] [place] [address] eGFR (CKD-EPI) NON-RACE DEPENDENT >90 Normal >[address] [facility] Comment on above: Result Comment: Reported eGFR is based on the CKD-EPI 1 equation that does not use a race coefficient. Performed By: #### 1 9123-9, 2777-, BMP, CBC, THYR #### [facility] ([id number]) [address], [address] [place] [address] Glucose [Mass/Vol] 91 mg/dL Normal 65-99 [facility] Comment on above: Performed By: #### 1 9123-9, 2777-, BMP, CBC, THYR #### [facility] ([id number]) [address], [address] [place] [address] Potassium [Moles/Vol] 4.1 mmol/L Normal 3.5-5.[address] [facility] Comment on above: Performed By: #### 1 9123-9, 2777-1, BMP, CBC, THYR #### [facility] ([id number]) [address], [address] [place] [address] Sodium [Moles/Vol] 142 mmol/L Normal 134-146 [facility] Comment on above: Performed By: #### 1 9123-9, 2777-1, BMP, CBC, THYR #### [facility] ([id number]) [address], [address] [place] [address] Urea nitrogen [Mass/Vol] 22 mg/dL Normal 5-23 [facility] Comment on above: Performed By: #### 1 9123-9, 2777-1, BMP, CBC, THYR #### [facility] ([id number]) [address], [address] [place] [address] Basic Metabolic Panelon 06-20 Anion gap [Moles/Vol] 6 mmol/L 5 - 15 mmol/L [facility] Calcium [Mass/Vol] 8.3 mg/dL Low 8.5 - 10. 5 mg/dL [facility] Chloride [Moles/Vol] 107 mmol/L 98 - 10 9 mmol/L [facility] CO2 [Moles/Vol] 29 mmol/L 22 - 32 mmol/L [facility] Creatinine [Mass/Vol] 0.91 mg/dL 0.60 - 1.30 mg/dL [facility] Comment on above: METHOD TRACEABLE TO IDMS STANDARD eGFR (CKD-EPI)non-race dependent - PINF [facility] [facility] Comment on above: Reported eGFR is based on the CKD-EPI 2020 equation that does not use a race coefficient. Glucose [Mass/Vol] 91 mg/dL 65 - 99 mg/dL [facility] Interpretation and review of laboratory results Abnormal [facility] Potassium [Moles/Vol] 4.1 mmol/L 3.5 - 5.0 mmol/L [facility] Sodium [Moles/Vol] 142 mmol/L 134 - 146 mmol/L [facility] Urea nitrogen [Mass/Vol] 22 mg/dL 5 - 23 mg/dL [facility] CBC without diffon Erythrocyte distribution width (RBC) [Ratio] 15.6 % High 11.5 - 15.0 % [facility] Hematocrit (Bld) [Volume fraction] 39.1 % 39 - 49 % [facility] Hemoglobin (Bld) [Mass/Vol] 12.7 g/dL Low 13.0 - 17.0 g/dL [facility] Interpretation and review of laboratory results Abnormal [facility] MCH (RBC) [Entitic mass] 24.5 pg Low 27 - 34 pg [facility] MCHC (RBC) [Mass/Vol] 32.5 g/dL 32 - 3 6 g/dL [facility] MCV (RBC) [Entitic vol] 75 fL Low 80 - 100 fL [facility] Platelet mean volume (Bld) [Entitic vol] 8.6 fL 7 - 12 fL [facility] Platelets (Bld) [#/Vol] 154 10*3/uL [facility] RBC (Bld) [#/Vol] 5.19 10*6/uL [facility] WBC corrected for nucl RBC Auto (Bld) [#/Vol] 4.1 [facility] COMPLETE BLOOD COUNTon 07-08 Erythrocyte distribution width (RBC) [Ratio] 15.6 % High 11.5-15.0 [facility] Comment on above: Performed By: #### 1 9123-9, 2777-1, BMP, CBC, THYR #### [facility] ([id number]) [address], [address] [place] [address] Hematocrit (Bld) [Volume fraction] 39.1 % Normal 39-49 [facility] Comment on above: Performed By: #### 1 9123-9, 2777-1, BMP, CBC, THYR #### [facility] ([id number]) [address], [address] [place] [address] Hemoglobin (Bld) [Mass/Vol] 12.7 g/dL Low 13.0-17.0 [facility] Comment on above: Performed By: #### 1 9123-02, 2776-06, BMP, CBC, THYR #### [facility] ([id number]) [address], [address] [place] [address] MCH (RBC) [Entitic mass] 24.5 pg Low 27-34 [facility] Comment on above: Performed By: #### 1 9123-02, 2776-06, BMP, CBC, THYR #### [facility] ([id number]) [address], [address] [place] [address] MCHC (RBC) [Mass/Vol] 32.5 g/dL Normal 32-[address] [facility] Comment on above: Performed By: #### 1 9123-02, 2776-06, BMP, CBC, THYR #### [facility] ([id number]) [address], [address] [place] [address] MCV (RBC) [Entitic vol] 75 fL Low 80-100 [facility] Comment on above: Performed By: #### 1 9123-02, 2776-06, BMP, CBC, THYR #### [facility] ([id number]) [address], [address] [place] [address] Platelet mean volume (Bld) [Entitic vol] 8.6 fL Normal 7-12 [facility] Comment on above: Performed By: #### 1 9123-02, 2776-06, BMP, CBC, THYR #### [facility] ([id number]) [address], [address] [place] [address] Platelets (Bld) [#/Vol] 154 10*3/uL Normal 150-450 [facility] Comment on above: Performed By: #### 1 91-, 27712-18, BMP, CBC, THYR #### [facility] ([id number]) [address], [address] [place] [address] RBC COUNT 5.19 X10E12/L Normal 4.10-5.70 [facility] Comment on above: Performed By: #### 1 9123-9, 2777-1, BMP, CBC, THYR #### [facility] ([id number]) [address], [address] [place] [address] WBC (Bld) [#/Vol] 4.1 10*3/uL Normal 4.0-11.0 [facility] Comment on above: Performed By: #### 1 9123-9, 2777-1, BMP, CBC, THYR #### [facility] ([id number]) [address], [address] [place] [address] Cobalamin (Vitamin B12) [Mas s/Vol]on 07-08-2024 [facility] EEGon 07-08-2024 Images from the [...] Neurology/Clinical Neurophysiology MANUALLY TRANSCRIBED RESULTS [facility] Folateon 07-08-2024 Folate [Mass/Vol] 10.2 ng/mL 5.8 - PINF ng/mL [facility] Comment on above: NEW REFERENCE RANGE Folate [Mass/Vol]on 07-08-19 [facility] FOLIC ACID 10.2 ng/mL Normal >5.8 [facility] Comment on above: Result Comment: NEW REFERENCE RANGE Performed By: #### 1 9123-9, 2777-1, BMP, CBC, THYR #### [facility] ([id number]) [address] [place] [address], [address] [place] [address] HIV 1&2 AB/AG Screen (P24 AG )on 07-08-2024 HIV 1+2 Ab+HIV1 p24 Ag IA Ql Non-Reactive Non-Reactiv e^Non-React deirdre [facility] Comment on above: NEW TEST METHOD [...] Ag IA Ql on 07-08-2024 [facility] HIV 1 and 2 Ab/Ag Screen Non-Reactive Normal NRCT [facility] Comment on above: Result Comment: NEW [...] 1 9123-9, 2777-1, BMP, CBC, THYR #### [facility] ([id number]) [address] [place] [address] VITAMIN B12on 07-08-2024 Cobalamin (Vitamin B12) [Mass/Vol] 526 pg/mL Normal 180-914 [facility] Comment on above: Performed By: #### 1 9123-9, 2777-1, BMP, CBC, THYR #### [facility] ([id number]) [address] [place] [address] Vitamin B12on 07-08-2024 Cobalamin (Vitamin B12) [Mass/Vol] 526 pg/mL 180 - 914 pg/mL [facility] B. burgdorferi IgG+IgM Qn (S )on 07-07-2024 LYME TOTAL <0.2 Normal <0.9 [facility] Comment on above: Result Comment: Interpretation-------- <0.9 Negative 0.9 - 1.0 Equivocal >1.0 Positive No serological evidence of Borrelia infection.A non-reactive result does not exclude the possibility of Borrelia infection and cannot exclude early infection with B.burgdorferi. If Lyme borreliosis is suspected, a second sample should be collected and tested 2-4 weeks later. Performed By: #### 3 4148-7, 53946-8, BMP, CBC #### [facility] ([id number]) [address], [address] [place] [address] BASIC METABOLIC PANLon 07-07 Anion gap [Moles/Vol] 8 mmol/L Normal 5-[address] [facility] Comment on above: Performed By: #### 3 4148-7, 06779-2, BMP, CBC #### [facility] ([id number]) [address], [address] [place] [address] Calcium [Mass/Vol] 8.8 mg/dL Normal 8.5-10.5 [facility] Comment on above: Performed By: #### 3 4148-7, 01895-5, BMP, CBC #### [facility] ([id number]) [address], [address] [place] [address] Chloride [Moles/Vol] 107 mmol/L Normal 98-109 [facility] Comment on above: Performed By: #### 3 4148-7, 83834-2, BMP, CBC #### [facility] ([id number]) [address], [address] [place] [address] CO2 [Moles/Vol] 30 mmol/L Normal 22-32 [facility] Comment on above: Performed By: #### 3 4148-7, 76796-4, BMP, CBC #### [facility] ([id number]) [address], [address] [place] [address] Creatinine [Mass/Vol] 1.00 mg/dL Normal 0.60-1.[address] [facility] Comment on above: Result Comment: METH OD TRACEABLE TO IDMS STANDARD Performed By: #### 3 4148-7, 69581-8, BMP, CBC #### [facility] ([id number]) [address], [address] [place] [address] GFR/1.73 sq M.predicted among non-blacks MDRD (S/P/Bld) [Vol rate/Area] 87 mL/min/{1.73_m2} Normal >59 [facility] Comment on above: Result Comment: Reported eGFR is based on the CKD-EPI 2020 equation that does not use a race coefficient. Performed By: #### 3 4148-7, 38875-7, BMP, CBC #### [facility] ([id number]) [address], [address] [place] [address] Glucose [Mass/Vol] 106 mg/dL High 65-99 [facility] Comment on above: Performed By: #### 3 4148-7, 97798-8, BMP, CBC #### [facility] ([id number]) [address], [address] [place] [address] Potassium [Moles/Vol] 3.9 mmol/L Normal 3.5-5.[address] [facility] Comment on above: Performed By: #### 3 4148-7, 44881-1, BMP, CBC #### [facility] ([id number]) [address], [address] [place] [address] Sodium [Moles/Vol] 145 mmol/L Normal 134-146 [facility] Comment on above: Performed By: #### 3 4148-7, 04639-0, BMP, CBC #### [facility] ([id number]) [address], [address] [place] [address] Urea nitrogen [Mass/Vol] 23 mg/dL Normal 5-23 [facility] Comment on above: Performed By: #### 3 4148-7, 10078-8, BMP, CBC #### [facility] ([id number]) [address], [address] [place] [address] Basic Metabolic Panelon 06-20 Anion gap [Moles/Vol] 8 mmol/L 5 - 15 mmol/L [facility] Calcium [Mass/Vol] 8.8 mg/dL 8.5 - 10. 5 mg/dL [facility] Chloride [Moles/Vol] 107 mmol/L 98 - 10 9 mmol/L [facility] CO2 [Moles/Vol] 30 mmol/L 22 - 32 mmol/L [facility] Creatinine [Mass/Vol] 1 mg/dL 0.60 - 1.30 mg/dL [facility] Comment on above: METHOD TRACEABLE TO [facility] STANDARD eGFR (CKD-EPI)non-race dependent 87 - PINF [facility] Comment on above: Reported eGFR is based on the CKD-EPI 2020 equation that does not use a race coefficient. Glucose [Mass/Vol] 106 mg/dL High 65 - 99 mg/dL [facility] Interpretation and review of laboratory results Abnormal [facility] Potassium [Moles/Vol] 3.9 mmol/L 3.5 - 5.0 mmol/L [facility] Sodium [Moles/Vol] 145 mmol/L 134 - 146 mmol/L [facility] Urea nitrogen [Mass/Vol] 23 mg/dL 5 - 23 mg/dL [facility] CBC without diffon Erythrocyte distribution width (RBC) [Ratio] 15.3 % High 11.5 - 15.0 % [facility] Hematocrit (Bld) [Volume fraction] 41.3 % 39 - 49 % [facility] Hemoglobin (Bld) [Mass/Vol] 13.4 g/dL 13.0 - 17.0 g/dL [facility] Interpretation and review of laboratory results Abnormal [facility] MCH (RBC) [Entitic mass] 24.7 pg Low 27 - 34 pg [facility] MCHC (RBC) [Mass/Vol] 32.5 g/dL 32 - 3 6 g/dL [facility] MCV (RBC) [Entitic vol] 76 fL Low 80 - 100 fL [facility] Platelet mean volume (Bld) [Entitic vol] 7.8 fL 7 - 12 fL [facility] Platelets (Bld) [#/Vol] 152 10*3/uL [facility] RBC (Bld) [#/Vol] 5.45 10*6/uL [facility] WBC corrected for nucl RBC Auto (Bld) [#/Vol] 4.4 [facility] COMPLETE BLOOD COUNTon 07-07 Erythrocyte distribution width (RBC) [Ratio] 15.3 % High 11.5-15.0 [facility] Comment on above: Performed By: #### 3 4148-7, 49184-0, BMP, CBC #### [facility] ([id number]) [address], [address] [place] [address] Hematocrit (Bld) [Volume fraction] 41.3 % Normal 39-49 [facility] Comment on above: Performed By: #### 3 4148-7, 33220-4, BMP, CBC #### [facility] ([id number]) [address], [facility] [address] [place] [address] Hemoglobin (Bld) [Mass/Vol] 13.4 g/dL Normal 13.0-17.0 [facility] Comment on above: Performed By: #### 3 4148-7, 32435-9, BMP, CBC #### [facility] ([id number]) [address], [address] [place] [address] MCH (RBC) [Entitic mass] 24.7 pg Low 27-34 [facility] Comment on above: Performed By: #### 3 4148-7, 17268-3, BMP, CBC #### [facility] ([id number]) [address], [address] [place] [address] MCHC (RBC) [Mass/Vol] 32.5 g/dL Normal 32-[address] [facility] Comment on above: Performed By: #### 3 4148-7, 33921-1, BMP, CBC #### [facility] ([id number]) [address], [address] [place] [address] MCV (RBC) [Entitic vol] 76 fL Low 80-100 [facility] Comment on above: Performed By: #### 3 4148-7, 81068-4, BMP, CBC #### [facility] ([id number]) [address], [address] [place] [address] Platelet mean volume (Bld) [Entitic vol] 7.8 fL Normal 7-12 [facility] Comment on above: Performed By: #### 3 4148-7, 59792-7, BMP, CBC #### [facility] ([id number]) [address], [facility] [address] [place] [address] Platelets (Bld) [#/Vol] 152 10*3/uL Normal 150-450 [facility] Comment on above: Performed By: #### 3 4148-7, 42311-3, BMP, CBC #### [facility] ([id number]) [address], [facility] [address] [place] [address] RBC COUNT 5.45 X10E12/L Normal 4.10-5.70 [facility] Comment on above: Performed By: #### 3 4148-7, 73327-3, BMP, CBC #### [facility] ([id number]) [address], [address] [place] [address] WBC (Bld) [#/Vol] 4.4 10*3/uL Normal 4.0-11.0 [facility] Comment on above: Performed By: #### 3 4148-7, 59624-6, BMP, CBC #### [facility] ([id number]) [address], [address] [place] [address] CT BRAIN WO CONTon 5 CT BRAIN [...] Johnson MD on 07/07/2024 9:19 AM Normal [facility] CT Head WO contraston 2024 CT [...] Delonte Johnson MD on 07/07/2024 9:19 AM [facility] Study observation (narrative) [facility] Head WO contrastOrdered B y: Delonte Johnson on 07-07-2024 [employer] Work Phone: EEGon 07-07-2024 Images from [...] RESULTS EEGOrdered By: Reji Sanon on 07-07-2024 [facility] [employer] Work Phone: T. pallidum IgG+IgM IA Ql (S )on 07-07-2024 Syphilis Total <0.2 Normal 0.0-0.8 [facility] Comment on above: Result Comment: NON REACTIVE No serologic evidence of infection to Treponema pallidum (syphilis). Repeat testing may be considered in patients with suspected acute or primary syphilis in 2 to 4 weeks. Performed By: #### 3 4148-7, 06523-7, BMP, CBC #### [facility] ([id number]) [address], [address] [place] [address] BASIC METABOLIC PANLon 07-06 Anion gap [Moles/Vol] 7 mmol/L Normal 5-[address] [facility] Comment on above: Performed By: #### 1 9123-9, 2777-1, BMP, CBC, THYR #### [facility] ([id number]) [address], [address] [place] [address] Calcium [Mass/Vol] 8.8 mg/dL Normal 8.5-10.5 [facility] Comment on above: Performed By: #### 1 9123-9, 2777-1, BMP, CBC, THYR #### [facility] ([id number]) [address], [address] [place] [address] Chloride [Moles/Vol] 105 mmol/L Normal 98-109 [facility] Comment on above: Performed By: #### 1 9123-9, 2777-1, BMP, CBC, THYR #### [facility] ([id number]) [address], [facility] [address] [place] [address] CO2 [Moles/Vol] 30 mmol/L Normal 22-32 [facility] Comment on above: Performed By: #### 1 9123-9, 27712-18, BMP, CBC, THYR #### [facility] ([id number]) [address], [facility] [address] [place] [address] Creatinine [Mass/Vol] 1.00 mg/dL Normal 0.60-1.[address] [facility] Comment on above: Result Comment: METH OD TRACEABLE TO IDMS STANDARD Performed By: #### 1 91-9, 2776-06, BMP, CBC, THYR #### [facility] ([id number]) [address] [address] GFR/1.73 sq M.predicted among non-blacks MDRD (S/P/Bld) [Vol rate/Area] 87 mL/min/{1.73_m2} Normal >59 [facility] Comment on above: Result Comment: Reported eGFR is based on the CKD-EPI 2020 equation that does not use a race coefficient. Performed By: #### 1 9123-9, 27712-18, BMP, CBC, THYR #### [facility] ([id number]) [address], [address] [address] Glucose [Mass/Vol] 102 mg/dL High 65-99 [facility] Comment on above: Performed By: #### 1 9123-9, 27712-18, BMP, CBC, THYR #### [facility] ([id number]) [address] [address] Potassium [Moles/Vol] 4.0 mmol/L Normal 3.5-5.[address] [facility] Comment on above: Performed By: #### 1 9123-9, 27712-18, BMP, CBC, THYR #### [facility] ([id number]) [address], [address] [place] [address] Sodium [Moles/Vol] 142 mmol/L Normal 134-146 [facility] Comment on above: Performed By: #### 1 9123-9, 2777-1, BMP, CBC, THYR #### [facility] ([id number]) [address], [address] [place] [address] Urea nitrogen [Mass/Vol] 22 mg/dL Normal 5-23 [facility] Comment on above: Performed By: #### 1 9123-9, 2777-1, BMP, CBC, THYR #### [facility] ([id number]) [address], [address] [place] [address] Basic Metabolic Panelon 06-20 Anion gap [Moles/Vol] 7 mmol/L 5 - 15 mmol/L [facility] Calcium [Mass/Vol] 8.8 mg/dL 8.5 - 10. 5 mg/dL [facility] Chloride [Moles/Vol] 105 mmol/L 98 - 10 9 mmol/L [facility] CO2 [Moles/Vol] 30 mmol/L 22 - 32 mmol/L [facility] Creatinine [Mass/Vol] 1 mg/dL 0.60 - 1.30 mg/dL [facility] Comment on above: METHOD TRACEABLE TO [employer] STANDARD eGFR (CKD-EPI)non-race dependent 87 - PINF [facility] Comment on above: Reported eGFR is based on the CKD-EPI 2020 equation that does not use a race coefficient. Glucose [Mass/Vol] 102 mg/dL High 65 - 99 mg/dL [facility] Interpretation and review of laboratory results Abnormal [facility] Potassium [Moles/Vol] 4 mmol/L 3.5 - 5.0 mmol/L [facility] Sodium [Moles/Vol] 142 mmol/L 134 - 146 mmol/L [facility] Urea nitrogen [Mass/Vol] 22 mg/dL 5 - 23 mg/dL [facility] CBC without diffon Erythrocyte distribution width (RBC) [Ratio] 15.5 % High 11.5 - 15.0 % [facility] Hematocrit (Bld) [Volume fraction] 42.8 % 39 - 49 % [facility] Hemoglobin (Bld) [Mass/Vol] 14.1 g/dL 13.0 - 17.0 g/dL [facility] Interpretation and review of laboratory results Abnormal [facility] MCH (RBC) [Entitic mass] 24.7 pg Low 27 - 34 pg [facility] MCHC (RBC) [Mass/Vol] 33 g/dL 32 - 3 6 g/dL [facility] MCV (RBC) [Entitic vol] 75 fL Low 80 - 100 fL [facility] Platelet mean volume (Bld) [Entitic vol] 7.8 fL 7 - 12 fL [facility] Platelets (Bld) [#/Vol] 169 10*3/uL [facility] RBC (Bld) [#/Vol] 5.71 10*6/uL High [facility] WBC corrected for nucl RBC Auto (Bld) [#/Vol] 4.7 [facility] COMPLETE BLOOD COUNTon 07-06 Erythrocyte distribution width (RBC) [Ratio] 15.5 % High 11.5-15.0 [facility] Comment on above: Performed By: #### 1 9123-9, 2777-1, BMP, CBC, THYR #### [facility] ([id number]) [address], [address] [place] [address] Hematocrit (Bld) [Volume fraction] 42.8 % Normal 39-49 [facility] Comment on above: Performed By: #### 1 9123-9, 2777-1, BMP, CBC, THYR #### [facility] ([id number]) [address], [address] [place] [address] Hemoglobin (Bld) [Mass/Vol] 14.1 g/dL Normal 13.0-17.0 [facility] Comment on above: Performed By: #### 1 91, 2776-06, BMP, CBC, THYR #### [facility] ([id number]) [address] [address] MCH (RBC) [Entitic mass] 24.7 pg Low 27-34 [facility] Comment on above: Performed By: #### 1 9123-02, 2776-06, BMP, CBC, THYR #### [facility] ([id number]) [address] [address] MCHC (RBC) [Mass/Vol] 33.0 g/dL Normal 32-[address] [facility] Comment on above: Performed By: #### 1 9123-02, 2776-06, BMP, CBC, THYR #### [facility] ([id number]) [address] [address] MCV (RBC) [Entitic vol] 75 fL Low 80-100 [facility] Comment on above: Performed By: #### 1 9123-02, 2776-06, BMP, CBC, THYR #### [facility] ([id number]) [address] [address] Platelet mean volume (Bld) [Entitic vol] 7.8 fL Normal 7-12 [facility] Comment on above: Performed By: #### 1 9123-02, 2776-06, BMP, CBC, THYR #### [facility] ([id number]) [address] [address] Platelets (Bld) [#/Vol] 169 10*3/uL Normal 150-450 [facility] Comment on above: Performed By: #### 1 9123-02, 2776-06, BMP, CBC, THYR #### [facility] ([id number]) [address] [address] RBC COUNT 5.71 X10E12/L High 4.10-5.70 [facility] Comment on above: Performed By: #### 1 9123-9, 2777-1, BMP, CBC, THYR #### [facility] ([id number]) [address], [address] [place] [address] WBC (Bld) [#/Vol] 4.7 10*3/uL Normal 4.0-11.0 [facility] Comment on above: Performed By: #### 1 9123-9, 2777-, BMP, CBC, THYR #### [facility] ([id number]) [address], [address] [place] [address] MAGNESIUMon 07-06-2024 Magnesium [Mass/Vol] 1.9 mg/dL Normal 1.8-2.6 [facility] Comment on above: Performed By: #### 1 9123-9, 2777-, BMP, CBC, THYR #### [facility] ([id number]) [address], [address] [place] [address] Magnesiumon 07-06-2024 Magnesium [Mass/Vol] 1.9 mg/dL 1.8 - 2 .6 mg/dL [facility] No Panel Informationon 07-06 [facility] PHOSPHORUSon 07-06-2024 Phosphate [Mass/Vol] 4.1 mg/dL Normal 2.4-4.9 [facility] Comment on above: Performed By: #### 1 9123-9, 2777-, BMP, CBC, THYR #### [facility] ([id number]) [address], [address] [place] [address] Phosphoruson 07-06-2024 Phosphate [Mass/Vol] 4.1 mg/dL 2.4 - 4 .9 mg/dL [facility] THYROID PROFILEon 07-06-2024 Free T4 [Mass/Vol] 0.84 ng/dL Normal 0.61-1.60 [facility] Comment on above: Performed By: #### 1 9123-9, 2777-, BMP, CBC, THYR #### [facility] ([id number]) [address] [place] [address] TSH 1.16 uIU/mL Normal 0.49-4.[address] [facility] Comment on above: Performed By: #### 1 9123-9, 2777-1, BMP, CBC, THYR #### [facility] ([id number]) [address] [place] [address] Thyroid profile includes TSH FT4on 07-06-2024 Free T4 [Mass/Vol] 0.84 ng/dL 0.61 - 1. 60 ng/dL [facility] TSH Qn 1.16 m[IU]/L [facility] ACETAMINOPHENon 06-24-2024 Acetaminophen [Mass/Vol] 3.3 ug/mL Low 10.0-30.0 [facility] Comment on above: Result Comment: Refe rence ranges are for therapeutic limits. Performed By: #### C BCA, CMP, 5643-2, 3298-7, 4024-6, THYR #### [facility] ([id number]) [address] [place] [id number] CBC AND AUTO DIFFon 06-24-19 25 ABSOLUTE BASOPHIL 0.1 X10E9/L Normal 0.0-0.2 [facility] Comment on above: Performed By: #### C BCA, CMP, 5643-2, 3298-7, 4024-6, THYR #### [facility] ([id number]) [address] [place] [id number] ABSOLUTE NEUTROPHIL 3.1 X10E9/L Normal 1.5-6.6 [facility] Comment on above: Performed By: #### C BCA, CMP, 5643-2, 3298-7, 4024-6, THYR #### [facility] ([id number]) [address] [place] [address] Basophils/100 WBC (Bld) 1.0 % Normal [facility] Comment on above: Performed By: #### C CARRIE, CMP, 5643-2, 3298-7, 4024-6, THYR #### [facility] ([id number]) [address] [place] [address] 43787 Eosinophils (Bld) [#/Vol] 0.1 10*3/uL Normal 0.0-0.4 [facility] Comment on above: Performed By: #### C CARRIE, CMP, 5643-2, 3298-7, 4024-6, THYR #### [facility] ([id number]) [address] [place] [address] 51336 Eosinophils/100 WBC (Bld) 1.4 % Normal [facility] Comment on above: Performed By: #### C CARRIE, CMP, 5643-2, 3298-7, 4024-6, THYR #### [facility] ([id number]) [address] [place] [address] 95513 Erythrocyte distribution width (RBC) [Ratio] 15.6 % High 11.5-15.0 [facility] Comment on above: Performed By: #### C CARRIE, CMP, 5643-2, 3298-7, 4024-6, THYR #### [facility] ([id number]) [address] [place] [address] 57948 Hematocrit (Bld) [Volume fraction] 42.7 % Normal 39-49 [facility] Comment on above: Performed By: #### C BCA, CMP, 5643-2, 3298-7, 4024-6, THYR #### [facility] ([id number]) [address] [place] [address] 53804 Hemoglobin (Bld) [Mass/Vol] 14.3 g/dL Normal 13.0-17.0 [facility] Comment on above: Performed By: #### C BCA, CMP, 5643-2, 3298-7, 4024-6, THYR #### [facility] ([id number]) [address] [place] [address] 61442 Lymphocytes (Bld) [#/Vol] 1.8 10*3/uL Normal 1.0-3.5 [facility] Comment on above: Performed By: #### C BCA, [facility], 5643-2, 3298-7, 4024-6, THYR #### [facility] ([id number]) [address] [place] [address] 10903 Lymphocytes/100 WBC (Bld) 33.3 % Normal [facility] Comment on above: Performed By: #### C BCA, CMP, 5643-2, 3298-7, 4024-6, THYR #### [facility] ([id number]) [address] [place] [address] 92517 MCH (RBC) [Entitic mass] 24.7 pg Low 27-34 [facility] Comment on above: Performed By: #### C BCA, CMP, 5643-2, 3298-7, 4024-6, THYR #### [facility] ([id number]) [address] [place] [address] 04645 MCHC (RBC) [Mass/Vol] 33.4 g/dL Normal 32-36 [facility] Comment on above: Performed By: #### C BCA, CMP, 5643-2, 3298-7, 4024-6, THYR #### [facility] ([id number]) [address] [place] [address] 93933 MCV (RBC) [Entitic vol] 74 fL Low 80-100 [facility] Comment on above: Performed By: #### C BCA, CMP, 5643-2, 3298-7, 4024-6, THYR #### [facility] ([id number]) [address] [place] [address] Monocytes (Bld) [#/Vol] 0.4 10*3/uL Normal 0-0.9 [facility] Comment on above: Performed By: #### C CARRIE [facility], 5643-2, 3298-7, 4024-6, THYR #### [facility] ([id number]) [address] [place] [address] 20901 Monocytes/100 WBC (Bld) 6.9 % Normal [facility] Comment on above: Performed By: #### Emily BUTLER [facility], 5643-2, 3298-7, 4024-6, THYR #### [facility] ([id number]) [address] [place] [address] 24711 Neutrophils/100 WBC (Bld) 57.4 % Normal [facility] Comment on above: Performed By: #### Emily BUTLER [facility], [facility]-2, 3298-7, 4024-6, THYR #### [facility] ([id number]) [address] [place] [address] 67173 Platelet mean volume (Bld) [Entitic vol] 7.8 fL Normal 7-12 [facility] Comment on above: Performed By: #### Emily BUTLER [facility], 5643-2, 3298-7, 4024-6, THYR #### [facility] ([id number]) [address] [place] [address] 64814 Platelets (Bld) [#/Vol] 174 10*3/uL Normal 150-450 [facility] Comment on above: Performed By: #### Emily BUTLER [facility], 5643-2, 3298-7, 4024-6, THYR #### [facility] ([id number]) [address] [place] [address] 42638 RBC COUNT 5.77 X10E12/L High 4.10-5.70 [facility] Comment on above: Performed By: #### C BCA, CMP, 5643-2, 3298-7, 4024-6, THYR #### [facility] ([id number]) [address] [place] [address] 53648 WBC (Bld) [#/Vol] 5.4 10*3/uL Normal 4.0-11.0 [facility] Comment on above: Performed By: #### C BCA, CMP, 5643-2, 3298-7, 4024-6, THYR #### [facility] ([id number]) [address] [place] [address] 64781 COMPREHENSIVE METABOLIC PANE Jatin 06-24-2024 Albumin [Mass/Vol] 4.0 g/dL Normal 3.2-5.3 [facility] Comment on above: Performed By: #### C BCA, CMP, 5643-2, 3298-7, 4024-6, THYR #### [facility] ([id number]) [address] [place] [address] 36778 ALP [Catalytic activity/Vol] 65 U/L Normal 39-130 [facility] Comment on above: Performed By: #### C BCA, CMP, 5643-2, 3298-7, 4024-6, THYR #### [facility] ([id number]) [address] [place] [address] 77185 ALT [Catalytic activity/Vol] 17 U/L Normal 0-40 [facility] Comment on above: Performed By: #### C BCA, CMP, 5643-2, 3298-7, 4024-6, THYR #### [facility] ([id number]) [address] [place] [address] 39802 Anion gap [Moles/Vol] 8 mmol/L Normal 5-15 [facility] Comment on above: Performed By: #### C BCA, CMP, 5643-2, 3298-7, 4024-6, THYR #### [facility] ([id number]) [address] [place] [address] 86404 AST [Catalytic activity/Vol] 17 U/L Normal 0-41 [facility] Comment on above: Performed By: #### C BCA, CMP, 5643-2, 3298-7, 4024-6, THYR #### [facility] ([id number]) [address] [place] [address] 84879 Bilirubin [Mass/Vol] 0.7 mg/dL Normal 0.3-1.2 [facility] Comment on above: Performed By: #### C BCA, CMP, 5643-2, 3298-7, 4024-6, THYR #### [facility] ([id number]) [address] [place] [address] 37961 Calcium [Mass/Vol] 8.9 mg/dL Normal 8.5-10.5 [facility] Comment on above: Performed By: #### C BCA, CMP, 5643-2, 3298-7, 4024-6, THYR #### [facility] ([id number]) [address] [place] [address] 39617 Chloride [Moles/Vol] 106 mmol/L Normal 98-109 [facility] Comment on above: Performed By: #### C BCA, CMP, 5643-2, 3298-7, 4024-6, THYR #### [facility] ([id number]) [address] [place] [address] 33530 CO2 [Moles/Vol] 24 mmol/L Normal 22-32 [facility] Comment on above: Performed By: #### C BCA, CMP, 5643-2, 3298-7, 4024-6, THYR #### [facility] ([id number]) [address] [place] [address] 27198 Creatinine [Mass/Vol] 0.88 mg/dL Normal 0.70-1.20 [facility] Comment on above: Result Comment: METH OD TRACEABLE TO IDMS STANDARD Performed By: #### C OWEN BUTLER, 5643-2, 3298-7, 4024-6, THYR #### [facility] ([id number]) [address] [place] [address] 05471 eGFR (CKD-EPI) NON-RACE DEPENDENT >90 Normal >59 [facility] Comment on above: Result Comment: Reported eGFR is based on the CKD-EPI 2020 equation that does not use a race coefficient. Performed By: #### C OWEN BUTLER, 5643-2, 3298-7, 4024-6, THYR #### [facility] ([id number]) [address] [place] [address] 28260 Glucose [Mass/Vol] 105 mg/dL High 65-99 [facility] Comment on above: Performed By: #### C OWEN BUTLER, 5643-2, 3298-7, 4024-6, THYR #### [facility] ([id number]) [address] [place] [address] 74022 Potassium [Moles/Vol] 3.9 mmol/L Normal 3.5-5.0 [facility] Comment on above: Performed By: #### C OWEN BUTLER, 5643-2, 3298-7, 4024-6, THYR #### [facility] ([id number]) [address] [place] [address] 77865 Protein [Mass/Vol] 6.9 g/dL Normal 6.0-8.0 [facility] Comment on above: Performed By: #### C OWEN BUTLER, 5643-2, 3298-7, 4024-6, THYR #### [facility] ([id number]) [address] [place] [address] 56844 Sodium [Moles/Vol] 138 mmol/L Normal 134-146 [facility] Comment on above: Performed By: #### C BCA, CMP, 5643-2, 3298-7, 4024-6, THYR #### [facility] ([id number]) [address] [place] [address] 20401 Urea nitrogen [Mass/Vol] 20 mg/dL Normal 5-23 [facility] Comment on above: Performed By: #### C BCA, CMP, 5643-2, 3298-7, 4024-6, THYR #### [facility] ([id number]) [address] [place] [address] 62440 DRUG SCREEN, URINEon 025 AMPHETAMINE/METHAMP Negative Normal NEG [facility] Comment on above: Result Comment: AMPH /METH screening cut off = 1000 ng/mL Performed By: #### D FAGAN #### [facility] ([id number]) [address] [place] [address] 51814 BARBITURATES Negative Normal NEG [facility] Comment on above: Result Comment: Izabel iturates screening cut off value = 200 ng/mL Performed By: #### D FAGAN #### [facility] ([id number]) [address] [place] [address] 65547 BENZODIAZEPINES Negative Normal NEG [facility] Comment on above: Result Comment: Skyler odiazepines screening cut off value = 200 ng/mL Performed By: #### D FAGAN #### [facility] ([id number]) [address] [place] [address] 30612 CANNABINOIDS Negative Normal NEG [facility] Comment on above: Result Comment: Sabina abinoids/THC screening cut off value = 50 ng/mL Performed By: #### D FAGAN #### [facility] ([id number]) [address] [place] [address] 55882 COCAINE METABOLITE Negative Normal NEG [facility] Comment on above: Result Comment: Coca ine screening cut off value = 300 ng/mL Performed By: #### D FAGAN #### [facility] ([id number]) [address] [place] [address] 57201 ECSTASY Negative Normal NEG [facility] Comment on above: Result Comment: Ecst asy screening cut off value = 500 ng/mL This report is intended for use in clinical monitoring or management of patients. Performed By: #### D FAGAN #### [facility] ([id number]) [address] [place] [address] 39536 METHADONE Negative Normal NEG [facility] Comment on above: Result Comment: Meth adone screening cut off value = 300 ng/mL. Performed By: #### D FAGAN #### [facility] ([id number]) [address] [place] [address] 95472 OPIATES Negative Normal NEG [facility] Comment on above: Result Comment: Opia ann screening cut off value = 300 ng/mL NOTE: This test is used for the detection of codeine, hydrocodone (>1000 ng/mL), morphine and hydromorphone (>900 ng/mL) in urine. Performed By: #### D FAGAN #### [facility] ([id number]) [address] [place] [address] 77979 OXYCODONE Negative Normal NEG [facility] Comment on above: Result Comment: Oxyc odone screening cut off value = 300 ng/mL NOTE: This test is used for the detection of oxycodone and oxymorphone in urine. Performed By: #### D FAGAN #### [facility] ([id number]) [address] [place] [address] 70830 PHENCYCLIDINE Negative Normal NEG [facility] Comment on above: Result Comment: Phen cyclidine screening cut off value = 25 ng/mL Performed By: #### D FAGAN #### [facility] ([id number]) [address] [place] [address] 93126 ETHANOLon 06-24-2024 Ethanol [Mass/Vol] mg/dL Normal 0.00-0.08 [facility] Comment on above: Result Comment: This report is intended for use in clinical monitoring or management of patients. Performed By: #### C CARRIE, OWEN, 5643-2, 3298-7, 4024-6, THYR #### [facility] ([id number]) [address] [place] [address] [place] [address] Salicylates [Mass/Vol]on SALICYLATE <4.0 Normal 2.0-25.0 [facility] Comment on above: Result Comment: Refe rence ranges are for therapeutic limits. Performed By: #### C CARRIE, OWEN, 5643-2, 3298-7, 4024-6, THYR #### [facility] ([id number]) [address] [place] [address] 56852 THYROID PROFILEon 06-24-2024 Free T4 [Mass/Vol] 0.92 ng/dL Normal 0.61-1.60 [facility] Comment on above: Performed By: #### C CARRIE, OWEN, 5643-2, 3298-7, 4024-6, THYR #### [facility] ([id number]) [address] [place] [address] 27302 TSH 4.19 uIU/mL Normal 0.49-4.67 [facility] Comment on above: Performed By: #### C CARRIE, OWEN, 5643-2, 3298-7, 4024-6, THYR #### [facility] ([id number]) [address] [place] [address] [place] [address] URN MACROSCOPIC NURon 2024 BILIRUBIN IRMA Negative Normal NEG [facility] Comment on above: Performed By: #### N UM #### [facility] ([id number]) [address] [place] [address] [place] [address] BLOOD/HGB IRMA Negative Normal NEG [facility] Comment on above: Performed By: #### N UM #### [facility] ([id number]) [address] [place] [address] [place] [address] GLUCOSE IRMA Negative Normal NEG [facility] Comment on above: Performed By: #### N UM #### [facility] ([id number]) [address] [place] [address] [place] [address] KETONES IRMA Negative Normal NEG [facility] Comment on above: Performed By: #### N UM #### [facility] ([id number]) [address] [place] [address] [place] [address] LEUKOCYTE ESTERASE IRMA Negative Normal NEG [facility] Comment on above: Performed By: #### N UM #### [facility] ([id number]) [address] [place] [address] 07545 NITRITE IRMA Negative Normal NEG [facility] Comment on above: Performed By: #### N UM #### [facility] ([id number]) [address] [place] [address] 71110 PH IRMA 7.5 Normal 5.0-8.5 [facility] Comment on above: Performed By: #### N UM #### [facility] ([id number]) [address] [place] [address] [place] [address] PROTEIN IRMA Negative Normal NEG [facility] Comment on above: Performed By: #### N UM #### [facility] ([id number]) [address] [place] [address] [place] [address] SPECIFIC GRAVITY IRMA 1.015 Normal 1.003-1.035 [facility] Comment on above: Performed By: #### N UM #### [facility] ([id number]) [address] [place] [address] [place] [address] UROBILINOGEN IRMA 0.2 eu/dL Normal <1.1 [facility] Comment on above: Performed By: #### N UM #### [facility] ([id number]) [address] [place] [address], [place] [address] BMPon 06-21-2024 Anion gap [Moles/Vol] 11 mmol/L Normal 6-16 [facility] Comment on above: Performed By: #### 2 284830 #### [facility] [address] [place] [address] Calcium [Mass/Vol] 9.0 mg/dL Normal 8.9-11.1 [facility] Comment on above: Performed By: #### 2 324629 #### [facility] [address] [place] [address] Chloride [Moles/Vol] 102 mmol/L Normal 101-111 [facility] Comment on above: Performed By: #### 2 219275 #### [facility] [address] [place] [address] CO2 [Moles/Vol] 30 mmol/L Normal 21-31 [facility] Comment on above: Performed By: #### 2 248227 #### [facility] [address] [place] [address] Creatinine [Mass/Vol] 0.9 mg/dL Normal 0.5-1.3 [facility] Comment on above: Performed By: #### 2 395995 #### [facility] [address] [place] [address] Glucose [Mass/Vol] 108 mg/dL Normal 55-199 [facility] Comment on above: Performed By: #### 2 098511 #### [facility] [address] [place] [address] Potassium [Moles/Vol] 3.9 mmol/L Normal 3.5-5.3 [facility] Comment on above: Performed By: #### 2 727005 #### [facility] [address] [place] [address] Sodium [Moles/Vol] 139 mmol/L Normal 135-145 [facility] Comment on above: Performed By: #### 2 183003 #### [facility] [address] [place] [address] Urea nitrogen [Mass/Vol] 12 mg/dL Normal 5-21 [facility] Comment on above: Performed By: #### 2 105790 #### [facility] [address] [place] [address] 05509 Urea nitrogen/Creatinine [Mass ratio] 13 No Units Normal 10-20 [facility] Comment on above: Performed By: #### 2 385310 #### [facility] [address] [place] [address] CBC w/ Auto Diffon 5 Basophils/100 WBC (Bld) 0.6 % Normal 0.0-2.0 [facility] Comment on above: Performed By: #### 2 883320 #### [facility] [address] [place] [address] 32351 Basophils/Leukocytes Auto (Bld) [Pure # fraction] 0.0 E9/L Normal 0.0-0.2 [facility] Comment on above: Performed By: #### 2 448796 #### [facility] [address] [place] [address] 40667 Eosinophils (Bld) [#/Vol] 0.0 E9/L Normal 0.0-0.5 [facility] Comment on above: Performed By: #### 2 621316 #### [facility] [address] [place] [address] 34173 Eosinophils/100 WBC (Bld) 0.6 % Normal 0.0-8.0 [facility] Comment on above: Performed By: #### 2 375539 #### [facility] [address] [place] [address] 57082 Erythrocyte distribution width (RBC) [Ratio] 15.6 % High 10.9-14.2 [facility] Comment on above: Performed By: #### 2 435551 #### [facility] [address] [place] [address] 29384 Hematocrit (Bld) [Volume fraction] 45.0 % Normal 37.7-49.0 [facility] Comment on above: Performed By: #### 2 876219 #### [facility] [address] [place] [address] Hemoglobin (Bld) [Mass/Vol] 14.7 g/dL Normal 13.5-17.5 [facility] Comment on above: Performed By: #### 2 473501 #### [facility] [address] [place] [address] Hypochromia Auto Ql (Bld) PRESENT Invalid Interpretation Code [facility] Comment on above: Performed By: #### 2 197583 #### [facility] [address] [place] [address] Lymphocytes (Bld) [#/Vol] 1.1 E9/L Normal 1.0-4.0 [facility] Comment on above: Performed By: #### 2 700250 #### [facility] [address] [place] [address] Lymphocytes/100 WBC (Bld) 23.5 % Normal 14.0-50.0 [facility] Comment on above: Performed By: #### 2 814896 #### [facility] [address] [place] [address] MCH (RBC) [Entitic mass] 24.7 pg Low 27.0-34.0 [facility] Comment on above: Performed By: #### 2 653636 #### [facility] [address] [place] [address] MCHC (RBC) [Mass/Vol] 32.7 g/dL Normal 31.4-36.0 [facility] Comment on above: Performed By: #### 2 415142 #### [facility] [address] [place] [address] MCV (RBC) [Entitic vol] 75.5 fL Low 80.0-100.0 [facility] Comment on above: Performed By: #### 2 285334 #### [facility] [address] [place] [address] Monocytes (Bld) [#/Vol] 0.2 E9/L Normal 0.2-1.0 [facility] Comment on above: Performed By: #### 2 780352 #### [facility] [address] [place] [address] Neutrophils (Bld) [#/Vol] 3.3 E9/L Normal 2.0-7.5 [facility] Comment on above: Performed By: #### 2 157584 #### [facility] [address] [place] [address] Neutrophils/100 WBC (Bld) 70.5 % Normal 36.0-75.0 [facility] Comment on above: Performed By: #### 2 100923 #### [facility] [address] [place] [address] 95563 Platelet mean volume (Bld) [Entitic vol] 8.5 fL Normal 6.4-10.8 [facility] Comment on above: Performed By: #### 2 829046 #### [facility] [address] [place] [address] 26478 Platelets (Bld) [#/Vol] 167.0 E9/L Normal 150.0-500.0 [facility] Comment on above: Performed By: #### 2 094177 #### [facility] [address] [place] [address] 29011 RBC (Bld) [#/Vol] 6.0 E12/L High 4.3-5.9 [facility] Comment on above: Performed By: #### 2 316313 #### [facility] [address] [place] [address] 82328 RBC size Nom (Bld) SEE MORPHOLOGY Invalid Interpretation Code [facility] Comment on above: Performed By: #### 2 029199 #### [facility] [address] [place] [address] 05329 WBC corrected for nucl RBC Auto (Bld) [#/Vol] 4.6 E9/L Normal 4.0-11.0 [facility] Comment on above: Performed By: #### 2 922754 #### [facility] [address] [place] [address] 50090 CHEMISTRYOrdered By: SYSTEM SYSTEM on 06-21-2024 Anion [...] 30.4 s Normal 25.1 - 36.5 second(s) [facility] Auto Coag Comment on above: Interpretive Data: [...] the same coagulation reagent and instrumentation as [facility]. Currently there are no coagulation studies available worldwide for children to 14 days, and no normal ranges. Heparin therapeutic range (represented by Anti-Factor Xa activity of 0.2 - 0.4 U/mL) corresponds to PTT of 56.6 - 109.0 sec. INR Coag (PPP) [Relative time] 1.02 {INR} Invalid Interpretation Code [facility] Auto Coag Comment on above: Interpretive Data: I NR results are specifically intended to assess patients stabilized on long-term Anticoagulation therapy suggested INR s Less Intensive Anticoagulation 2.0 3.0 Conventional Range 3.0 4.5 PT Coag (PPP) [Time] 11.4 s Normal 9.4 - 1 2.5 second(s) [facility] Auto Coag Comment on above: Interpretive Data: [...] the same coagulation reagent and instrumentation as [facility]. Currently there are no coagulation studies available [...] the same coagulation reagent and instrumentation as [facility]. Currently there are no coagulation studies available worldwide for children to 14 days, and no normal ranges. Heparin therapeutic range (represented by Anti-Factor Xa activity of 0.2 - 0.4 U/mL) corresponds to PTT of 56.6 - 109.0 sec. Performed By: #### 1 [id number] #### [facility] [address] [place] [address] INR Coag (PPP) [Relative time] 1.02 {INR} Invalid Interpretation Code [facility] Comment on above: Result Comment: INR results are specifically intended to assess patients stabilized on long-term Anticoagulation therapy suggested INR???s ???Less Intensive Anticoagulation??? 2.0 ??? 3.0 Conventional Range 3.0 ??? 4.5 Performed By: #### 1 [id number] #### [facility] [address] [place] [address] PT Coag (PPP) [Time] 11.4 second(s) Normal 9.4-12.5 [facility] Comment on above: Result Comment: 15 [...] the same coagulation reagent and instrumentation as [facility]. Currently there are no coagulation studies available worldwide for children to 14 days, and no normal ranges. Performed By: #### 1 [id number] #### [facility] [address] [place] [address] UA with Cult Rflxon 06-21-19 25 Bilirubin Ql (U) Negative Normal Negative [facility] Comment on above: Performed By: #### 4 [id number] #### [facility] [address] [place] [address] 66226 Clarity (U) Clear Normal Clear [facility] Comment on above: Performed By: #### 4 [id number] #### [facility] [address] [place] [address] 53363 Color (U) Colorless Abnormal Yellow [facility] Comment on above: Result Comment: Micr oscopic readings are only performed on those samples that meet specific criteria set forth by [facility]. Performed By: #### 4 [id number] #### [facility] [address] [place] [address] 73877 Glucose Ql (U) Negative Normal Negative [facility] Comment on above: Performed By: #### 4 [id number] #### [facility] [address] [place] [address] 71154 Hemoglobin Auto test strip (U) [Mass/Vol] Negative Normal Negative [facility] Comment on above: Performed By: #### 4 [id number] #### [facility] [address] [place] [address] 91610 Ketones Auto test strip Ql (U) Negative Normal Negative [facility] Comment on above: Performed By: #### 4 [id number] #### [facility] [address] [place] [address] 59084 Leukocyte esterase Auto test strip Ql (U) Negative Normal Negative [facility] Comment on above: Performed By: #### 4 [id number] #### [facility] [address] [place] [address] Nitrite Auto test strip Ql (U) Negative Normal Negative [facility] Comment on above: Performed By: #### 4 [id number] #### [facility] [address] [place] [address] pH (U) 7.0 [pH] Invalid Interpretation Code 5.0-9.0 [facility] Comment on above: Performed By: #### 4 [id number] #### [facility] [address] [place] [address] Protein Ql (U) Negative Normal Negative [facility] Comment on above: Performed By: #### 4 [id number] #### [facility] [address] [place] [address] Specific gravity (U) [Rel density] 1.005 Invalid Interpretation Code 1.005-1.030 [facility] Comment on above: Performed By: #### 4 [id number] #### [facility] [address] [place] [address] Urobilinogen (U) [Mass/Vol] Negative Normal Negative [facility] Comment on above: Performed By: #### 4 [id number] #### [facility] [address] [place] [address] Type of Urine collection method Clean Catch Normal [facility] Comment on above: Performed By: #### 4 [id number] #### [facility] [address] [place] [address] URINALYSISOrdered By: SYSTEM SYSTEM on 06-21-2024 Bilirubin Ql (U) Negative Normal Negativemg/ dL [facility] UA Auto SS Clarity (U) Clear (06/21/24 11:04 AM) Normal Clear [facility] UA Auto SS Color (U) Colorless 1 *ABN* (06/21/24 11:04 AM) Invalid Interpretation Code Yellow [facility] UA Auto SS Comment on above: Interpretive Data: M icroscopic readings are only performed on those samples that meet specific criteria set forth by [facility]. Glucose Ql (U) Negative Normal Negativemg/ dL [facility] UA Auto SS Hemoglobin Auto test strip (U) [Mass/Vol] Negative Normal Negativemg/ dL [facility] UA Auto SS Ketones Auto test strip Ql (U) Negative Normal Negativemg/ dL [facility] UA Auto SS Leukocyte esterase Auto test strip Ql (U) Negative Normal NegativeLeu /uL [facility] UA Auto SS Nitrite Auto test strip Ql (U) Negative Normal Negativemg/ dL [facility] UA Auto SS pH (U) 7.0 *NA* (06/21/24 11:04 AM) Invalid Interpretation Code 5.0 - 9.0 [facility] UA Auto SS Protein Ql (U) Negative Normal Negativemg/ dL [facility] UA Auto SS Specific gravity (U) [Rel density] 1.005 *NA* (06/21/24 11:04 AM) Invalid Interpretation Code 1.005 - 1.030 [facility] UA Auto SS Urobilinogen (U) [Mass/Vol] Negative Normal Negativemg/ dL [facility] UA Auto SS URINALYSISOrdered By: Peter Larios on 06-21-2024 UA Spec Desc Clean Catch (06/21/24 11:04 AM) Normal [facility] UA Auto SS XR Chest 2 Viewson [...] mGy = na DAP = na Normal [facility] eGFRon 06-21-2024 eGFR 98 mL/min/1.73 m2 Normal >=59 [facility] Comment on above: Performed By: #### 1 [id number] #### [facility] [address] [place] [address] Provider Letteron 04-18-2024 Provider Letter Provider Letter April 18, 2024 ESTELLA JEFFERY [address] [place] [phone] : 1965 Dear, I am corresponding with [...] Sincerely, Dr. Danni Graham [facility] [address] [facility]. [place] [id number] Normal [facility] ISTAT XRay CREon 03-15-2024 ISTAT GFR > 60.0 Normal [facility] Comment on above: Result Comment: PERF ORMED BY: [place] [address] PATHOLOGIST CLINICAL DIETITIAN NALDO SALDIVAR M.D. Performed By: #### I SCRE #### [address] MR prostate wo/w conon 03-15 MR prostate wo/w con [facility] [place] [address] [place] [address] MRI Report Signed Patient: Estella Jeffery MR#: [id number] : 1965 Acct:[id number] Age/Sex: 58 / M ADM Date: 03/15/24 Loc: MR Room: Type: [facility] Attending Dr: Danni Graham MD Copies [...] recommended. Impression dictated by: Esdras Anne Jr., MagnusOChong03/15/2024 3:05 PM Dictation Location: [place] [address] Transcribed By: [facility] 03/15/24 1505 Dictated By: Esdras Anne Jr, DO 03/15/24 1501 Signed By: 03/15/24 1505 Normal [facility] No Panel InformationOrdered By: Danni Graham on 03-15-2024 Bedside Estimated GFR (eGFR) > 60.0 [facility] Whole blood creatinine measu rementOrdered By: Danni Graham on 03-15-2024 Creatinine [Mass/Vol] 1.0 mg/dL Normal 0.6-1.3 [facility] Comment on above: ER/ESD physician is notified/shown all ISTAT results.Critical values may be confirmed by laboratory testing ifdeemed necessary by ER attending doctor. Result Comment: ER/E SD physician is notified/shown all ISTAT results. Critical values may be confirmed by laboratory testing if deemed necessary by ER attending doctor. Performed By: #### I SCRE #### [facility] [address] RITO by IFAon 10-25-2022 Antinuclear Antibodies, IFA Negative Normal [facility] Comment on above: Result Comment: Nega tive <1:80 Borderline 1:80 Positive >1:80 ICAP nomenclature: AC-0 For more information about Hep-2 cell patterns use ANApatterns.org, the official website for the International Consensus on Antinuclear Antibody (RITO) Patterns (ICAP). Performed By: #### T 7, TSH, CMP, LISANDRA, LIPA, LIPID #### [facility] [address] [place] [address] Dr. Janell Marquez ANTISTREPTOLYSIN O AB (ASO)o n 10-22-2022 Antistreptolysin O Ab 45.9 IU/mL Normal 0.0-200.0 [facility] Comment on above: Performed By: #### A SOAB #### [facility] [address] [place] [address] Dr. Janell Marquez RHEUMATOID FACTORon 10-23-19 RA Latex Turbid. <10.0 Normal <14.0 [facility] Comment on above: Performed By: #### R F #### [facility] [address] [place] [address] Dr. Janell Marquez CBC AUTO DIFFon 10-21-2022 BASO # 0.0 103/ul Normal 0.0-0.1 [facility] Comment on above: Performed By: #### T 7, TSH, CMP, LISANDRA, LIPA, LIPID #### [facility] [address] [place] [address] Dr. Janell Marquez Basophils/100 WBC (Bld) 0.4 % Normal 0.2-2.0 [facility] Comment on above: Performed By: #### T 7, TSH, CMP, LISANDRA, LIPA, LIPID #### [facility] [address] [place] [address] Dr. Janell Marquez EO # 0.0 103/ul Normal 0.0-0.7 [facility] Comment on above: Performed By: #### T 7, TSH, CMP, LISANDRA, LIPA, LIPID #### [facility] [address] [place] [address] [address] Jnaell Marquez Eosinophils/100 WBC (Bld) 0.7 % Critically low 0.9-7.0 [facility] Comment on above: Performed By: #### T 7, TSH, CMP, LISANDRA, LIPA, LIPID #### [facility] [address] [place] [address] Dr. Janell Marquez Erythrocyte distribution width (RBC) [Ratio] 16.1 % Critically high 11.0-15.0 [facility] Comment on above: Performed By: #### T 7, TSH, CMP, LISANDRA, LIPA, LIPID #### [facility] [address] [place] [address] Dr. Janell Marquez Hematocrit (Bld) [Volume fraction] 48.8 % Normal 42.0-54.0 [facility] Comment on above: Performed By: #### T 7, TSH, CMP, LISANDRA, LIPA, LIPID #### [facility] [address] [place] [address] Dr. Janell Marquez Hemoglobin (Bld) [Mass/Vol] 15.3 g/dL Normal 14.0-18.0 [facility] Comment on above: Performed By: #### T 7, TSH, CMP, LISANDRA, LIPA, LIPID #### [facility] [address] [place] [address] Dr. Janell Marquez IG # 0.02 10e3/ul Normal 0.00-0.03 [facility] Comment on above: Performed By: #### T 7, TSH, CMP, LISANDRA, LIPA, LIPID #### [facility] [address] [place] [address] Dr. Janell Marquez IG % 0.4 % Normal 0.0-0.5 [facility] Comment on above: Performed By: #### T 7, TSH, CMP, LISANDRA, LIPA, LIPID #### [facility] [address] [place] [address] Dr. Janell Marquez LYMPH # 1.3 103/ul Normal 1.2-3.8 [facility] Comment on above: Performed By: #### T 7, TSH, CMP, LISANDRA, LIPA, LIPID #### [facility] [address] [place] [address] Dr. Janell Marquez Lymphocytes/100 WBC (Bld) 29.0 % Normal 20.5-60.0 [facility] Comment on above: Performed By: #### T 7, TSH, CMP, LISANDRA, LIPA, LIPID #### [facility] [address] [place] [address] Dr. Janell Marquez MANUAL DIFF REQ NO Normal [facility] Comment on above: Performed By: #### T 7, TSH, CMP, LISANDRA, LIPA, LIPID #### [facility] [address] [place] [address] Dr. Janell Marquez MCH (RBC) [Entitic mass] 23.5 pg Critically low 25.9-34.0 [facility] Comment on above: Performed By: #### T 7, TSH, CMP, LISANDRA, LIPA, LIPID #### [facility] [address] [place] [address] Dr. Janell Marquez MCHC (RBC) [Mass/Vol] 31.4 g/dL Normal 29.9-35.2 [facility] Comment on above: Performed By: #### T 7, TSH, CMP, LISANDRA, LIPA, LIPID #### [facility] [address] [place] [address] Dr. Janell Marquez MCV (RBC) [Entitic vol] 74.8 fL Critically low 80.0-94.0 [facility] Comment on above: Performed By: #### T 7, TSH, CMP, LISANDRA, LIPA, LIPID #### [facility] [address] [place] [address] Dr. Janell Marquez MONO # 0.3 103/ul Normal 0.3-0.8 [facility] Comment on above: Performed By: #### T 7, TSH, CMP, LISANDRA, LIPA, LIPID #### [facility] [address] [place] [address] Dr. Janell Marquez Monocytes/100 WBC (Bld) 7.4 % Normal 1.7-12.0 [facility] Comment on above: Performed By: #### T 7, TSH, CMP, LISANDRA, LIPA, LIPID #### [facility] [address] [place] [address] [address] Janell Marquez NEUT # 2.9 103/ul Normal 1.4-6.5 [facility] Comment on above: Performed By: #### T 7, TSH, CMP, LISANDRA, LIPA, LIPID #### [facility] [address] [place] [address] [address] Janell Marquez Neutrophils/100 WBC (Bld) 62.1 % Normal 43.0-75.0 [facility] Comment on above: Performed By: #### T 7, TSH, CMP, LISANDRA, LIPA, LIPID #### [facility] [address] [place] [address] [address] Janell Marquez Platelet mean volume (Bld) [Entitic vol] 9.3 fL Critically low 9.5-13.5 [facility] Comment on above: Performed By: #### T 7, TSH, CMP, LISANDRA, LIPA, LIPID #### [facility] [address] [place] [address] [address] Janell Marquez PLT 203 103/ul Normal 150-450 [facility] Comment on above: Performed By: #### T 7, TSH, CMP, LISANDRA, LIPA, LIPID #### [facility] [address] [place] [address] [address] Janell Marquez RBC 6.52 106/ul Critically high 4.70-6.10 [facility] Comment on above: Performed By: #### T 7, TSH, CMP, LISANDRA, LIPA, LIPID #### [facility] [address] [place] [address] [address] Janell Marquez WBC 4.6 103/ul Normal 4.0-11.0 [facility] Comment on above: Performed By: #### T 7, TSH, CMP, LISANDRA, LIPA, LIPID #### [facility] [address] [place] [address] [address] Janell Marquez CRPon 10-21-2022 CRP [Mass/Vol] mg/L Normal <=1.0 [facility] Comment on above: Performed By: #### T 7, TSH, CMP, LISANDRA, LIPA, LIPID #### [facility] [address] [place] [address] [address] Janell Marquez SED RATE WESTERGRENon 2022 SED RATE 30 mm/hr Critically high <=20 [facility] Comment on above: Performed By: #### T 7, TSH, CMP, LISANDRA, LIPA, LIPID #### [facility] [address] [place] [address] [address] Janell Marquez URIC ACID SERUMon 10-21-2022 Urate [Mass/Vol] 4.3 mg/dL Normal 3.5-7.2 [facility] Comment on above: Performed By: #### T 7, TSH, CMP, LISANDRA, LIPA, LIPID #### [facility] [address] [place] [address] [address] Janell Marquez CSF MANUAL DIFFon 10-12-2022 Diff Total, CSF 57 cells counted [facility] Lymph%, CSF 91 % High 50 - 90 % [facility] Vigo%, CSF 9 % Low 10 - 50 % [facility] ic Cell count panel (CSF)on Clarity (CSF) Clear Clear [facility] Clarity (Unsp spec) Not Indicated Clear [facility] Color (CSF) Colorless Colorless [facility]enn[facility] Color (Spun CSF) Not Indicated Colorless [facility] CSF Tube Number Tube 1 [facility] RBC Manual cnt (CSF) [#/Vol] 3 cells/uL 0 - 5 cells/uL [facility] WBC Manual cnt (CSF) [#/Vol] 1 cells/uL 0 - 5 cells/uL [facility] GLUCOSE CSFon 10-12-2022 Glucose (CSF) [Mass/Vol] 57 mg/dL 40 - 70 mg/dL [facility] PROTEIN CSFon 10-12-2022 Protein (CSF) [Mass/Vol] 32 mg/dL 15 - 45 mg/dL [facility] TOURT[place] BLOODon 023 [facility] ic ALLIED HEALTHon 05-07-2022 ALLIED HEALTH HNO ID: [id number] Author: Nicole Girard mortgage counselor Service: Radiology Author Type: Log Sorter Type: Allied Health Filed: 05/07/2022 1:54 PM [...] DATA: Not applicable SIGNED BY: Nicole Huffman, mortgage counselor May 07, 2022 1:31 PM [facility] MRI 3D POST PROCESSINGon MRI 3D POST PROCESSING * * *Final Report* * * DATE OF EXAM: May 07 2022 1:47PM [facility] 0280 - MRI 3D POST PROCESSING / PROCEDURE REASON: Cognitive changes * * * * Physician Interpretation * * * * EXAMINATION: MRI BRAIN WO IVCON, MRI 3D POST PROCESSING CLINICAL HISTORY: Cognitive changes TECHNIQUE: Axial FLORIDALMA FLAIR, FLORIDALMA T2, diffusion and susceptibility weighted imaging without contrast, using the ADNI dementia protocol and 3-D post-processing using the Wattio software at an independent workstation with concurrent [...] = Focal Lesions 2 = Beginning of [place] 3 = Diffuse Involvement of Entire Region Basal Ganglia Lesions: 0 = No Lesions 1 = 1 Focal Lesion (>5mm) 2 = >1 Focal Lesion (>5mm) 3 = Confluent Lesions Rc B, et al. The clinical use of structural [...] results from the analysis charts for details. Assembler Faucets: MARISELA Transcribe Date/Time: May 07 2022 2:51P Dictated by : MANISH PRICE MD This examination was interpreted and the report reviewed and electronically signed by: MANISH PRICE MD on May 07 2022 3:06PM EST [id number] Normal [facility] MRI BRAIN WO IVCONon 022 MRI BRAIN WO IVCON * * *Final Report* * * DATE OF EXAM: May 07 2022 1:47PM [facility] 0294 - MRI BRAIN WO IVCON / PROCEDURE REASON: Cognitive changes * * * * Physician Interpretation * * * * EXAMINATION: MRI BRAIN WO IVCON, MRI 3D POST PROCESSING CLINICAL HISTORY: Cognitive changes TECHNIQUE: Axial FLORIDALMA FLAIR, FLORIDALMA T2, diffusion and susceptibility weighted imaging without contrast, using the ADNI dementia protocol and 3-D post-processing using the Wattio software at an independent workstation with concurrent [...] = Focal Lesions 2 = Beginning of [place] 3 = Diffuse Involvement of Entire Region [...] results from the analysis charts for details. Assembler Faucets: MARISELA Transcribe Date/Time: May 07 2022 2:51P Dictated by : MANISH PRICE MD This examination was interpreted and the report reviewed and electronically signed by: MANISH PRICE MD on May 07 2022 3:06PM EST [id number] Normal [facility] No Panel Informationon 05-07 [facility] MRI BRAIN WO W CONon 022 MRI [...] by: LUCIE TOWNSEND Date: 2022-01-21 17:28 Normal [facility] US CAROTID ART BILon 022 [...] by: LUCIE TOWNSEND Date: 2022-01-21 17:18 Normal [facility] H PYLORI ANTIBODY IGGon 12-19 H. PYLORI IGG ABS 0.72 Index Value Normal 0.00-0.[address] [facility] Comment on above: Result Comment: Nega tive <0.80 Equivocal 0.80 - 0.89 Positive >0.89 Performed By: #### H PYLLC #### [facility] [address] [place] [address] [address] Janell Marquez INSULINon 01-13-2022 Insulin 15.8 uIU/mL Normal 2.6-24.9 [facility] Comment on above: Performed By: #### T 7, TSH, CMP, LISANDRA, LIPA, LIPID #### [facility] [address] [place] [address] [address] Janell Marquez VIT D 25-OH LABCORPon 2021 Vitamin D, 25-Hydroxy 29.7 ng/mL Critically low 30.0-100.0 [facility] Comment on above: Result Comment: Nelsy min D deficiency has been defined by the [employer] of [employer] and an Endocrine Society practice guideline as a level of serum 25-OH vitamin D less than 20 ng/mL (1,2). The Endocrine Society went on to further define vitamin D insufficiency as a level between 21 and 29 ng/mL (2). 1. IOM ([place] of [employer]). 2010. Dietary reference intakes for calcium and D. [place]: The National Academies Press. 2. Kevin MF, Mey NC, Bharat SPENCER, et al. Evaluation, treatment, and prevention of vitamin D deficiency: an Endocrine Society clinical practice guideline. JCEM. 2010; 96(7):1911-30. Performed By: #### T 7, TSH, CMP, LISANDRA, LIPA, LIPID #### [facility] [address] [place] [address] [address] Janell Marquez AMMONIAon 01-12-2022 Ammonia (P) [Mass/Vol] ug/dL Critically low 11-32 [facility] Comment on above: Performed By: #### T 7, TSH, CMP, LISANDRA, LIPA, LIPID #### [facility] [address] [place] [address] [address] Janell Marquez AMYLASEon 01-12-2022 Amylase [Catalytic activity/Vol] 49 U/L Normal 25-115 [facility] Comment on above: Performed By: #### T 7, TSH, CMP, LISANDRA, LIPA, LIPID #### [facility] [address] [place] [address] Dr. Janell Marquez CBC AUTO DIFFon 01-12-2022 BASO # 0.0 103/ul Normal 0.0-0.1 [facility] Comment on above: Performed By: #### T 7, TSH, CMP, LISANDRA, LIPA, LIPID #### [facility] [address] [place] [address] Dr. Janell Marquez Basophils/100 WBC (Bld) 0.2 % Normal 0.2-2.0 [facility] Comment on above: Performed By: #### T 7, TSH, CMP, LISANDRA, LIPA, LIPID #### [facility] [address] [place] [address] Dr. Janell Marquez EO # 0.0 103/ul Normal 0.0-0.7 [facility] Comment on above: Performed By: #### T 7, TSH, CMP, LISANDRA, LIPA, LIPID #### [facility] [address] [place] [address] Dr. Janell Marquez Eosinophils/100 WBC (Bld) 0.3 % Critically low 0.9-7.0 [facility] Comment on above: Performed By: #### T 7, TSH, CMP, LISANDRA, LIPA, LIPID #### [facility] [address] [place] [address] Dr. Janell Marquez Erythrocyte distribution width (RBC) [Ratio] 16.0 % Critically high 11.0-15.0 [facility] Comment on above: Performed By: #### T 7, TSH, CMP, LISANDRA, LIPA, LIPID #### [facility] [address] [place] [address] Dr. Janell Marquez Hematocrit (Bld) [Volume fraction] 46.8 % Normal 42.0-54.0 [facility] Comment on above: Performed By: #### T 7, TSH, CMP, LISANDRA, LIPA, LIPID #### [facility] [address] [place] [address] Dr. Janell Marquez Hemoglobin (Bld) [Mass/Vol] 14.9 g/dL Normal 14.0-18.0 [facility] Comment on above: Performed By: #### T 7, TSH, CMP, LISANDRA, LIPA, LIPID #### [facility] [address] [place] [address] [address] Janell Marquez IG # 0.01 10e3/ul Normal 0.00-0.03 [facility] Comment on above: Performed By: #### T 7, TSH, CMP, LISANDRA, LIPA, LIPID #### [facility] [address] [place] [address] Dr. Janell Marquez IG % 0.2 % Normal 0.0-0.5 [facility] Comment on above: Performed By: #### T 7, TSH, CMP, LISANDRA, LIPA, LIPID #### [facility] [address] [place] [address] Dr. Janell Marquez LYMPH # 1.0 103/ul Critically low 1.2-3.8 [facility] Comment on above: Performed By: #### T 7, TSH, CMP, LISANDRA, LIPA, LIPID #### [facility] [address] [place] [address] Dr. Janell Marquez Lymphocytes/100 WBC (Bld) 16.2 % Critically low 20.5-60.0 [facility] Comment on above: Performed By: #### T 7, TSH, CMP, LISANDRA, LIPA, LIPID #### [facility] [address] [place] [address] Dr. Janell Marquez MANUAL DIFF REQ NO Normal [facility] Comment on above: Performed By: #### T 7, TSH, CMP, LISANDRA, LIPA, LIPID #### [facility] [address] [place] [address] Dr. Janell Marquez MCH (RBC) [Entitic mass] 23.9 pg Critically low 25.9-34.0 [facility] Comment on above: Performed By: #### T 7, TSH, CMP, LISANDRA, LIPA, LIPID #### [facility] [address] [place] [address] Dr. Janell Marquez MCHC (RBC) [Mass/Vol] 31.8 g/dL Normal 29.9-35.2 [facility] Comment on above: Performed By: #### T 7, TSH, CMP, LISANDRA, LIPA, LIPID #### [facility] [address] [place] [address] Dr. Janell Marquez MCV (RBC) [Entitic vol] 75.0 fL Critically low 80.0-94.0 [facility] Comment on above: Performed By: #### T 7, TSH, CMP, LISANDRA, LIPA, LIPID #### [facility] [address] [place] [address] Dr. Janell Marquez MONO # 0.4 103/ul Normal 0.3-0.8 [facility] Comment on above: Performed By: #### T 7, TSH, CMP, LISANDRA, LIPA, LIPID #### [facility] [address] [place] [address] Dr. Janell Marquez Monocytes/100 WBC (Bld) 6.0 % Normal 1.7-12.0 [facility] Comment on above: Performed By: #### T 7, TSH, CMP, LISANDRA, LIPA, LIPID #### [facility] [address] [place] [address] Dr. Janell Marquez NEUT # 4.5 103/ul Normal 1.4-6.5 [facility] Comment on above: Performed By: #### T 7, TSH, CMP, LISANDRA, LIPA, LIPID #### [facility] [address] [place] [address] Dr. Janell Marquez Neutrophils/100 WBC (Bld) 77.1 % Critically high 43.0-75.0 [facility] Comment on above: Performed By: #### T 7, TSH, CMP, LISANDRA, LIPA, LIPID #### [facility] [address] [place] [address] Dr. Janell Marquez Platelet mean volume (Bld) [Entitic vol] 9.3 fL Critically low 9.5-13.5 [facility] Comment on above: Performed By: #### T 7, TSH, CMP, LISANDRA, LIPA, LIPID #### [facility] [address] [place] [address] Dr. Janell Marquez PLT 202 103/ul Normal 150-450 [facility] Comment on above: Performed By: #### T 7, TSH, CMP, LISANDRA, LIPA, LIPID #### [facility] [address] [place] [address] [address] Janell Marquez RBC 6.24 106/ul Critically high 4.70-6.10 [facility] Comment on above: Performed By: #### T 7, TSH, CMP, LISANDRA, LIPA, LIPID #### [facility] [address] [place] [address] [address] Janell Marquez WBC 5.9 103/ul Normal 4.0-11.0 [facility] Comment on above: Performed By: #### T 7, TSH, CMP, LISANDRA, LIPA, LIPID #### [facility] [address] [place] [address] Dr. Janell Marquez FREE THYROXINE INDEX T7on FTI 3.14 Normal 1.30-4.50 [facility] Comment on above: Performed By: #### T 7, TSH, CMP, LISANDRA, LIPA, LIPID #### [facility] [address] [place] [address] Dr. Janell Marquez T3U 32.0 % Critically low 33.0-40.0 [facility] Comment on above: Performed By: #### T 7, TSH, CMP, LISANDRA, LIPA, LIPID #### [facility] [address] [place] [address] Dr. Janell Marquez T4 [Mass/Vol] 9.80 ug/dL Normal 4.50-12.10 [facility] Comment on above: Performed By: #### T 7, TSH, CMP, LISANDRA, LIPA, LIPID #### [facility] [address] [place] [address] Dr. Janell Marquez GLYCOHEMOGLOBIN A1Con 2021 ADA RECOMMENDATION SEE BELOW Normal [facility] Comment on above: Result Comment: ADA RECOMMENDED LIMIT 4.0 - 6.0 ADA THERAPEUTIC TARGET < 7.0 ACTION SUGGESTED > 7.0 Performed By: #### A 1C #### [facility] [address] [place] [address] Dr. Janell Marquez Glucose [Mass/Vol] 120 mg/dL Normal [facility] Comment on above: Performed By: #### A 1C #### [facility] [address] [address] [address] Janell Marquez HbA1c (Bld) [Mass fraction] 5.8 % Normal 4.5-6.2 [facility] Comment on above: Performed By: #### A 1C #### [facility] [address] [address] [address] Janell Marquez IRONon 01-12-2022 Iron [Mass/Vol] 70.0 ug/dL Normal 65.0-175.0 [facility] Comment on above: Performed By: #### T 7, TSH, CMP, LISANDRA, LIPA, LIPID #### [facility] [address] [place] [address] Dr. Janell Marquez LIPASEon 01-12-2022 Lipase [Catalytic activity/Vol] 72.0 U/L Critically low 73.0-393.0 [facility] Comment on above: Performed By: #### T 7, TSH, CMP, LISANDRA, LIPA, LIPID #### [facility] [address] [place] [address] Dr. Janell Marquez LIPID PROFILEon 01-12-2022 CHOL-HDL RATIO NORM SEE BELOW Normal [facility] Comment on above: Result Comment: 3.3 - 4.4 LOW RISK 4.4 - 7.1 AVERAGE RISK 7.1 - 11.0 MODERATE RISK >11.0 HIGH RISK Performed By: #### T 7, TSH, CMP, LISANDRA, LIPA, LIPID #### [facility] [address] [address] [address] Janell Marquez Cholesterol [Mass/Vol] 220 mg/dL Critically high <=200 [facility] Comment on above: Performed By: #### T 7, TSH, CMP, LISANDRA, LIPA, LIPID #### [facility] [address] [address] [address] Janell Marquez Cholesterol in HDL [Mass/Vol] 47 mg/dL Normal 40-60 [facility] Comment on above: Performed By: #### T 7, TSH, CMP, LISANDRA, LIPA, LIPID #### [facility] [address] [address] [address] Janell Marquez Cholesterol in LDL [Mass/Vol] 157.4 mg/dL Normal [facility] Comment on above: Performed By: #### T 7, TSH, CMP, LISANDRA, LIPA, LIPID #### [facility] [address] [address] [address] Janell Marquez Cholesterol.total/Cho lesterol in HDL [Mass ratio] 4.7 {ratio} Normal [facility] Comment on above: Performed By: #### T 7, TSH, CMP, LISANDRA, LIPA, LIPID #### [facility] [address] [address] [address] Janell Marquez HDL NORMAL > or = 60 mg/dl - LOW CARDIOVASCULAR RISK <40 mg/dl - HIGH CARDIOVASCULAR RISK Normal [facility] Comment on above: Performed By: #### T 7, TSH, CMP, LISANDRA, LIPA, LIPID #### [facility] [address] [address] [address] Janell Marquez LDL CALC NORMAL SEE BELOW Normal [facility] Comment on above: Result Comment: <100 mg/dl OPTIMAL 100 - 129 mg/dl NEAR OR ABOVE OPTIMAL 130 - 159 mg/dl BORDERLINE HIGH 160 - 189 mg/dl HIGH >190 mg/dl VERY HIGH Performed By: #### T 7, TSH, CMP, LISANDRA, LIPA, LIPID #### [facility] [address] [address] [address] Janell Marquez Triglyceride [Mass/Vol] 78 mg/dL Normal <=150 [facility] Comment on above: Performed By: #### T 7, TSH, CMP, LISANDRA, LIPA, LIPID #### [facility] [address] [address] [address] Janell Marquez VLDL CALC 15.6 mg/dL Normal [facility] Comment on above: Performed By: #### T 7, TSH, CMP, LISANDRA, LIPA, LIPID #### [facility] [address] [address] [address] Janell Marquez PROF 14(COMP METB)on 022 Albumin [Mass/Vol] 3.5 g/dL Normal 3.4-5.0 [facility] Comment on above: Performed By: #### T 7, TSH, CMP, LISANDRA, LIPA, LIPID #### [facility] [address] [place] [address] Dr. Janell Marquez Albumin/Globulin [Mass ratio] 0.9 {ratio} Normal [facility] Comment on above: Performed By: #### T 7, TSH, CMP, LISANDRA, LIPA, LIPID #### [facility] [address] [address] [address] Janell Marquez ALP [Catalytic activity/Vol] 69 U/L Normal 46-116 [facility] Comment on above: Performed By: #### T 7, TSH, CMP, LISANDRA, LIPA, LIPID #### [facility] [address] [place] [address] Dr. Janell Marquez ALT [Catalytic activity/Vol] 19 U/L Normal 16-63 [facility] Comment on above: Performed By: #### T 7, TSH, CMP, LISANDRA, LIPA, LIPID #### [facility] [address] [place] [address] Dr. Janell Marquez Anion gap [Moles/Vol] 12.1 mmol/L Normal [facility] Comment on above: Performed By: #### T 7, TSH, CMP, LISANDRA, LIPA, LIPID #### [facility] [address] [place] [address] Dr. Janell Marquez AST [Catalytic activity/Vol] 15 U/L Normal 15-37 [facility] Comment on above: Performed By: #### T 7, TSH, CMP, LISANDRA, LIPA, LIPID #### [facility] [address] [place] [address] Dr. Janell Marquez Bilirubin [Mass/Vol] 0.8 mg/dL Normal 0.2-1.0 [facility] Comment on above: Performed By: #### T 7, TSH, CMP, LISANDRA, LIPA, LIPID #### [facility] [address] [place] [address] Dr. Janell Marquez Calcium [Mass/Vol] 8.5 mg/dL Normal 8.5-10.1 [facility] Comment on above: Performed By: #### T 7, TSH, CMP, LISANDRA, LIPA, LIPID #### [facility] [address] [address] [address] Janell Marquez Chloride [Moles/Vol] 105 mmol/L Normal 98-107 [facility] Comment on above: Performed By: #### T 7, TSH, CMP, LISANDRA, LIPA, LIPID #### [facility] [address] [address] [address] Janell Marquez CO2 [Moles/Vol] 28.0 mmol/L Normal 21.0-32.0 [facility] Comment on above: Performed By: #### T 7, TSH, CMP, LISANDRA, LIPA, LIPID #### [facility] [address] [place] [address] Dr. Janell Marquez Creatinine [Mass/Vol] 1.11 mg/dL Normal 0.70-1.30 [facility] Comment on above: Performed By: #### T 7, TSH, CMP, LISANDRA, LIPA, LIPID #### [facility] [address] [address] [address] Janell Marquez EGFR-AF LIBERIAN >60 Normal >=60 [facility] Comment on above: Performed By: #### T 7, TSH, CMP, LISANDRA, LIPA, LIPID #### [facility] [address] [address] [address] Janell Marquez EGFR-NON AF LIBERIAN >60 Normal >=60 [facility] Comment on above: Performed By: #### T 7, TSH, CMP, LISANDRA, LIPA, LIPID #### [facility] [address] [address] [address] Janell Marquez Globulin (S) [Mass/Vol] 3.7 g/dL Normal [facility] Comment on above: Performed By: #### T 7, TSH, CMP, LISANDRA, LIPA, LIPID #### [facility] [address] [address] [address] Janell Marquez Glucose [Mass/Vol] 115 mg/dL Critically high 74-[address] [facility] Comment on above: Performed By: #### T 7, TSH, CMP, LISANDRA, LIPA, LIPID #### [facility] [address] [place] [address] Dr. Janell Marquez Potassium [Moles/Vol] 4.1 mmol/L Normal 3.5-5.1 [facility] Comment on above: Performed By: #### T 7, TSH, CMP, LISANDRA, LIPA, LIPID #### [facility] [address] [place] [address] Dr. Janell Marquez Protein [Mass/Vol] 7.2 g/dL Normal 6.4-8.2 [facility] Comment on above: Performed By: #### T 7, TSH, CMP, LISANDRA, LIPA, LIPID #### [facility] [address] [place] [address] Dr. Janell Marquez Sodium [Moles/Vol] 141 mmol/L Normal 136-145 [facility] Comment on above: Performed By: #### T 7, TSH, CMP, LISANDRA, LIPA, LIPID #### [facility] [address] [place] [address] Dr. Janell Marquez Urea nitrogen [Mass/Vol] 16.0 mg/dL Normal 7.0-18.0 [facility] Comment on above: Performed By: #### T 7, TSH, CMP, LISANDRA, LIPA, LIPID #### [facility] [address] [place] [address] Dr. Janell Marquez Urea nitrogen/Creatinine [Mass ratio] 14.4 mg/mg Normal [facility] Comment on above: Performed By: #### T 7, TSH, CMP, LISANDRA, LIPA, LIPID #### [facility] [address] [place] [address] Dr. Janell Marquez TSHon 01-12-2022 TSH 1.412 uIU/mL Normal 0.358-3.740 [facility] Comment on above: Performed By: #### T 7, TSH, CMP, LISANDRA, LIPA, LIPID #### [facility] [address] [place] [address] Dr. Janell Marquez VIT B12 AND FOLATEon Cobalamin (Vitamin B12) [Mass/Vol] 411.0 pg/mL Normal 193.0-986.0 [facility] Comment on above: Performed By: #### T 7, TSH, CMP, LISANDRA, LIPA, LIPID #### [facility] [address] [address] [address] Janell Marquez FOLATE 11.10 ng/mL Normal 8.60-58.90 [facility] Comment on above: Performed By: #### T 7, TSH, CMP, LISANDRA, LIPA, LIPID #### [facility] [address] [address] [address] Janell Marquez BASIC METABOLIC PANELon Calcium [Mass/Vol] 8.3 mg/dL Low 8.6-10.3 [facility] Comment on above: Order Comment: No: D o not add to previous draw Performed By: #### 0 0071 #### [facility] [address] [place] [address], [place] Chloride [Moles/Vol] 104 mmol/L Normal 98-107 [facility] Comment on above: Order Comment: No: D o not add to previous draw Performed By: #### 0 0071 #### [facility] [address] [place] [address], [place] CO2 [Moles/Vol] 29 mmol/L Normal 21-31 [facility] Comment on above: Order Comment: No: D o not add to previous draw Performed By: #### 0 0071 #### [facility] [address] [place] [address], [place] Creatinine [Mass/Vol] 0.81 mg/dL Normal 0.70-1.30 [facility] Comment on above: Order Comment: No: D o not add to previous draw Performed By: #### 0 0071 #### [facility] [address] [place] [address], [place] GFR/1.73 sq M.predicted among blacks MDRD (S/P/Bld) [Vol rate/Area] mL/min/{1.73_m2} Normal >60 [facility] Comment on above: Order Comment: No: D o not add to previous draw Performed By: #### 0 0071 #### [facility] [address] [place] [address], [place] GFR/1.73 sq M.predicted among non-blacks MDRD (S/P/Bld) [Vol rate/Area] mL/min/{1.73_m2} Normal >60 [facility] Comment on above: Order Comment: No: D o not add to previous draw Performed By: #### 0 0071 #### [facility] [address] [place] [address], [place] Glucose [Mass/Vol] 144 mg/dL High 70-100 [facility] Comment on above: Order Comment: No: D o not add to previous draw Performed By: #### 0 0071 #### [facility] [address] [place] [address], [place] Potassium [Moles/Vol] 3.6 mmol/L Normal 3.5-5.1 [facility] Comment on above: Order Comment: No: D o not add to previous draw Performed By: #### 0 0071 #### [facility] [address] [place] [address], [place] Sodium [Moles/Vol] 139 mmol/L Normal 136-145 [facility] Comment on above: Order Comment: No: D o not add to previous draw Performed By: #### 0 0071 #### [facility] [address] [place] [address], [place] Urea nitrogen [Mass/Vol] 9 mg/dL Normal 7-25 [facility] Comment on above: Order Comment: No: D o not add to previous draw Performed By: #### 0 0071 #### [facility] [address] CBC COMPLETE BLOOD COUNTon 0 07-26-2020 Erythrocyte distribution width (RBC) [Ratio] 14.6 % Normal 11.5-15.0 [facility] Comment on above: Order Comment: No: D o not add to previous draw Performed By: #### 0 0071 #### [facility] [address] [facility] [place] [address], [facility] Hematocrit (Bld) [Volume fraction] 38.8 % Low 39.0-50.0 [facility] Comment on above: Order Comment: No: D o not add to previous draw Performed By: #### 0 0071 #### [facility] [address] Hemoglobin (Bld) [Mass/Vol] 12.1 g/dL Low 13.0-17.0 [facility] Comment on above: Order Comment: No: D o not add to previous draw Performed By: #### 0 0071 #### [facility] [address] [place] [address], [facility] MCH (RBC) [Entitic mass] 23.7 pg Low 27.0-33.0 [facility] Comment on above: Order Comment: No: D o not add to previous draw Performed By: #### 0 0071 #### [facility] [address] [place] [address], [facility] MCHC (RBC) [Mass/Vol] 31.2 g/dL Low 32.0-35.0 [facility] Comment on above: Order Comment: No: D o not add to previous draw Performed By: #### 0 0071 #### [facility] [address] [place] [address], [facility] MCV (RBC) [Entitic vol] 75.9 fL Low 82.0-98.0 [facility] Comment on above: Order Comment: No: D o not add to previous draw Performed By: #### 0 0071 #### [facility] [address] [place] [address], [facility] Nucleated RBC/100 WBC (Bld) [Ratio] 0 % Normal 0-0 [facility] Comment on above: Order Comment: No: D o not add to previous draw Performed By: #### 0 0071 #### [facility] [address] [place] [address], [facility] PLAT CNT 182 10*3/uL Normal 150-400 [facility] Comment on above: Order Comment: No: D o not add to previous draw Performed By: #### 0 0071 #### [facility] [address] [facility] [address], [facility] RBC (Bld) [#/Vol] 5.11 10*6/uL Normal 4.20-5.70 [facility] Comment on above: Order Comment: No: D o not add to previous draw Performed By: #### 0 0071 #### [facility] [address] [facility] [address], [facility] WBC (Bld) [#/Vol] 3.64 10*3/uL Low 4.00-10.60 [facility] Comment on above: Order Comment: No: D o not add to previous draw Performed By: #### 0 0071 #### [facility] [address] [facility] [address], [facility] MAGNESIUM BLOODon 07-26-2020 Magnesium [Mass/Vol] 1.8 mg/dL Low 1.9-2.7 [facility] Comment on above: Order Comment: No: D o not add to previous draw Performed By: #### 1 0070, [id number] #### [facility] [address] [place] [address], [facility] BASIC METABOLIC PANELon Calcium [Mass/Vol] 8.4 mg/dL Low 8.6-10.3 [facility] Comment on above: Order Comment: No: D o not add to previous draw Performed By: #### 1 69, [id number] #### [facility] [address] [place] [address], [place] Chloride [Moles/Vol] 104 mmol/L Normal 98-107 [facility] Comment on above: Order Comment: No: D o not add to previous draw Performed By: #### 1 69, [id number] #### [facility] [address] [place] [address], [place] CO2 [Moles/Vol] 27 mmol/L Normal 21-31 [facility] Comment on above: Order Comment: No: D o not add to previous draw Performed By: #### 1 69, 22830 #### [facility] [address] [place] [address], [place] Creatinine [Mass/Vol] 0.83 mg/dL Normal 0.70-1.30 [facility] Comment on above: Order Comment: No: D o not add to previous draw Performed By: #### 1 69, [id number] #### [facility] [address] [place] [address], [place] GFR/1.73 sq M.predicted among blacks MDRD (S/P/Bld) [Vol rate/Area] mL/min/{1.73_m2} Normal >60 [facility] Comment on above: Order Comment: No: D o not add to previous draw Performed By: #### 1 69, 27105 #### [facility] [address] [place] [address], [place] GFR/1.73 sq M.predicted among non-blacks MDRD (S/P/Bld) [Vol rate/Area] mL/min/{1.73_m2} Normal >60 [facility] Comment on above: Order Comment: No: D o not add to previous draw Performed By: #### 1 69, [id number] #### [facility] [address] [place] [address], [facility] Glucose [Mass/Vol] 162 mg/dL High 70-100 [facility] Comment on above: Order Comment: No: D o not add to previous draw Performed By: #### 1 69, [id number] #### [facility] [address] [place] [address], [facility] Potassium [Moles/Vol] 3.4 mmol/L Low 3.5-5.1 [facility] Comment on above: Order Comment: No: D o not add to previous draw Performed By: #### 1 69, 33081 #### [facility] [address] [place] [address], [facility] Sodium [Moles/Vol] 137 mmol/L Normal 136-145 [facility] Comment on above: Order Comment: No: D o not add to previous draw Performed By: #### 1 69, 05060 #### [facility] [address] [place] [address], [facility] Urea nitrogen [Mass/Vol] 18 mg/dL Normal 7-25 [facility] Comment on above: Order Comment: No: D o not add to previous draw Performed By: #### 1 69, [id number] #### [facility] [address] [place] [address], [facility] CBC COMPLETE BLOOD COUNTon 0 - Erythrocyte distribution width (RBC) [Ratio] 15.2 % High 11.5-15.0 [facility] Comment on above: Order Comment: No: D o not add to previous draw Performed By: #### 0 1 #### [facility] [address] [place] [address], [facility] Hematocrit (Bld) [Volume fraction] 40.7 % Normal 39.0-50.0 [facility] Comment on above: Order Comment: No: D o not add to previous draw Performed By: #### 0 0071 #### [facility] [address] [place] [address], [facility] Hemoglobin (Bld) [Mass/Vol] 12.7 g/dL Low 13.0-17.0 [facility] Comment on above: Order Comment: No: D o not add to previous draw Performed By: #### 0 0071 #### [facility] [address] [place] [address], [facility] MCH (RBC) [Entitic mass] 23.3 pg Low 27.0-33.0 [facility] Comment on above: Order Comment: No: D o not add to previous draw Performed By: #### 0 0071 #### [facility] [address] [facility] [address], [facility] MCHC (RBC) [Mass/Vol] 31.2 g/dL Low 32.0-35.0 [facility] Comment on above: Order Comment: No: D o not add to previous draw Performed By: #### 0 0071 #### [facility] [address] [place] [address], [facility] MCV (RBC) [Entitic vol] 74.8 fL Low 82.0-98.0 [facility] Comment on above: Order Comment: No: D o not add to previous draw Performed By: #### 0 0071 #### [facility] [address] [place] [address], [facility] Nucleated RBC/100 WBC (Bld) [Ratio] 0 % Normal 0-0 [facility] Comment on above: Order Comment: No: D o not add to previous draw Performed By: #### 0 0071 #### [facility] [address] [place] [address], [facility] PLAT CNT 207 10*3/uL Normal 150-400 [facility] Comment on above: Order Comment: No: D o not add to previous draw Performed By: #### 0 0071 #### [facility] [address] [facility] [address], [facility] RBC (Bld) [#/Vol] 5.44 10*6/uL Normal 4.20-5.70 [facility] Comment on above: Order Comment: No: D o not add to previous draw Performed By: #### 0 0071 #### [facility] [address] WBC (Bld) [#/Vol] 3.05 10*3/uL Low 4.00-10.60 [facility] Comment on above: Order Comment: No: D o not add to previous draw Performed By: #### 0 0071 #### [facility] [address] [facility]. [address] MAGNESIUM BLOODon 07-25-2020 Magnesium [Mass/Vol] 1.8 mg/dL Low 1.9-2.7 [facility] Comment on above: Order Comment: No: D o not add to previous draw Performed By: #### 1 0070, [id number] #### [facility] [address] [facility] POC GLUCOSE LABon 07-25-2020 Glucose [Mass/Vol] 155 mg/dL High 70-100 [facility] Comment on above: Performed By: #### 0 0071, [id number] #### [facility] [address] [facility]. [address] *SARS-CoV-2 COVID-19on 07-24 SARS-CoV-2 (COVID-19) RNA LILLIANA+probe Ql (Unsp spec) Not detected Normal Not Detected [facility] Comment on above: Order Comment: No: D o not add to previous draw Performed By: #### 0 0071, [id number] #### [facility] [address] CBC W/DIFFon 07-24-2020 ABS IMM GRANS 0.0 10*3/uL Normal 0.0-0.2 [facility] Comment on above: Performed By: #### 0 0071 #### [facility] [address] [place] [address], [facility] ABS NEUTROPHILS 2.0 10*3/uL Normal 1.6-7.6 [facility] Comment on above: Performed By: #### 0 0071 #### [facility] [address] [place] [address], [facility] Basophils (Bld) [#/Vol] 0.0 10*3/uL Normal 0.0-0.2 [facility] Comment on above: Performed By: #### 0 0071 #### [facility] [address] [facility] [place] [address], [facility] Basophils/100 WBC (Bld) 0.4 % Normal 0.0-1.0 [facility] Comment on above: Performed By: #### 0 0071 #### [facility] [address] [facility] [place] [address], [facility] Eosinophils (Bld) [#/Vol] 0.0 10*3/uL Normal 0.0-0.5 [facility] Comment on above: Performed By: #### 0 0071 #### [facility] [address] [place] [address], [facility] Eosinophils/100 WBC (Bld) 0.7 % Normal 0.0-6.0 [facility] Comment on above: Performed By: #### 0 0071 #### [facility] [address] [place] [address], [facility] Erythrocyte distribution width (RBC) [Ratio] 15.8 % High 11.5-15.0 [facility] Comment on above: Performed By: #### 0 0071 #### [facility] [address] [place] [address], [facility] Hematocrit (Bld) [Volume fraction] 45.5 % Normal 39.0-50.0 [facility] Comment on above: Performed By: #### 0 0071 #### [facility] [address] [place] [address], [facility] Hemoglobin (Bld) [Mass/Vol] 14.4 g/dL Normal 13.0-17.0 [facility] Comment on above: Performed By: #### 0 0071 #### [facility] [address] [place] [address], [facility] IMMATURE GRANS 0.4 % Normal 0.0-1.0 [facility] Comment on above: Performed By: #### 0 0071 #### [facility] [address] [place] [address], [facility] Lymphocytes (Bld) [#/Vol] 0.4 10*3/uL Low 1.2-4.0 [facility] Comment on above: Performed By: #### 0 0071 #### [facility] [address] Lymphocytes/100 WBC (Bld) 14.5 % Low 20.0-45.0 [facility] Comment on above: Performed By: #### 0 0071 #### [facility] [address] [place] [address], [facility] MCH (RBC) [Entitic mass] 23.7 pg Low 27.0-33.0 [facility] Comment on above: Performed By: #### 0 0071 #### [facility] [address] [place] [address], [facility] MCHC (RBC) [Mass/Vol] 31.6 g/dL Low 32.0-35.0 [facility] Comment on above: Performed By: #### 0 0071 #### [facility] [address] [place] [address], [facility] MCV (RBC) [Entitic vol] 75.0 fL Low 82.0-98.0 [facility] Comment on above: Performed By: #### 0 0071 #### [facility] [address] [facility] [place] [address], [facility] Monocytes (Bld) [#/Vol] 0.3 10*3/uL Normal 0.1-1.0 [facility] Comment on above: Performed By: #### 0 0071 #### [facility] [address] [facility] [address], [facility] MONOS 12.3 % High 5.0-12.0 [facility] Comment on above: Performed By: #### 0 0071 #### [facility] [address] [place] [address], [facility] Neutrophils/100 WBC (Bld) 71.7 % Normal 40.0-72.0 [facility] Comment on above: Performed By: #### 0 0071 #### [facility] [address] [facility] [address], [facility] Nucleated RBC/100 WBC (Bld) [Ratio] 0 % Normal 0-0 [facility] Comment on above: Performed By: #### 0 0071 #### [facility] [address] [facility] [address], [facility] PLAT CNT 225 10*3/uL Normal 150-400 [facility] Comment on above: Performed By: #### 0 0071 #### [facility] [address] [facility] [address], [facility] RBC (Bld) [#/Vol] 6.07 10*6/uL High 4.20-5.70 [facility] Comment on above: Performed By: #### 0 0071 #### [facility] [address] [facility] [address], [facility] WBC (Bld) [#/Vol] 2.76 10*3/uL Low 4.00-10.60 [facility] Comment on above: Performed By: #### 0 0071 #### [facility] [address] [place] [address], [place] COMP METABOLIC PANELon 07-24 Albumin [Mass/Vol] 3.7 g/dL Normal 3.5-5.7 [facility] Comment on above: Performed By: #### 3 5200, 74485, 94167 #### [facility] [address] [place] [address], [place] ALKALINE PHOSPH 58 IU/L Normal 34-104 [facility] Comment on above: Performed By: #### 3 5200, 14249, 22794 #### [facility] [address] [place] [address], [place] ALT [Catalytic activity/Vol] 12 U/L Normal 7-52 [facility] Comment on above: Performed By: #### 3 5200, 47132, 88410 #### [facility] [address] [place] [address], [place] AST [Catalytic activity/Vol] 15 U/L Normal 13-39 [facility] Comment on above: Performed By: #### 3 5200, 60585, 74354 #### [facility] [address] [place] [address], [place] Bilirubin [Mass/Vol] 1.3 mg/dL High 0.3-1.0 [facility] Comment on above: Performed By: #### 3 5200, 19588, 28693 #### [facility] [address] [place] [address], [place] Calcium [Mass/Vol] 8.7 mg/dL Normal 8.6-10.3 [facility] Comment on above: Performed By: #### 3 5200, 90103, 49205 #### [facility] [address] [place] [address], [place] Chloride [Moles/Vol] 99 mmol/L Normal 98-107 [facility] Comment on above: Performed By: #### 3 5200, 51308, 46322 #### [facility] [address] [place] [address], [place] CO2 [Moles/Vol] 25 mmol/L Normal 21-31 [facility] Comment on above: Performed By: #### 3 5200, 99110, 20933 #### [facility] [address] [place] [address], [place] Creatinine [Mass/Vol] 1.01 mg/dL Normal 0.70-1.30 [facility] Comment on above: Performed By: #### 3 5200, 67395, 76849 #### [facility] [address] [place] [address], [place] GFR/1.73 sq M.predicted among blacks MDRD (S/P/Bld) [Vol rate/Area] mL/min/{1.73_m2} Normal >60 [facility] Comment on above: Performed By: #### 3 5200, 13288, 30719 #### [facility] [address] [place] [address], [place] GFR/1.73 sq M.predicted among non-blacks MDRD (S/P/Bld) [Vol rate/Area] mL/min/{1.73_m2} Normal >60 [facility] Comment on above: Performed By: #### 3 5200, 91358, 46832 #### [facility] [address] [place] [address], [place] Glucose [Mass/Vol] 142 mg/dL High 70-100 [facility] Comment on above: Performed By: #### 3 5200, 46504, 50375 #### [facility] [address] [place] [address], [place] Potassium [Moles/Vol] 3.9 mmol/L Normal 3.5-5.1 [facility] Comment on above: Performed By: #### 3 5200, 15065, 13194 #### [facility] [address] [facility] [address], [facility] Protein [Mass/Vol] 6.6 g/dL Normal 6.0-8.3 [facility] Comment on above: Performed By: #### 3 5200, 86816, 53926 #### [facility] [address] [facility]. [place], [place] [id number] [place] [address] Sodium [Moles/Vol] 134 mmol/L Low 136-145 [facility] Comment on above: Performed By: #### 3 5200, 76432, 64824 #### [facility] [address] [place] [address], [facility] Urea nitrogen [Mass/Vol] 20 mg/dL Normal 7-25 [facility] Comment on above: Performed By: #### 3 5200, 66793, 48379 #### [facility] [address] [place], [place] [id number] [place] [address] CT ABDOMEN AND PELVIS W IV C ONTRASTon 07-24-2020 CT ABDOMEN AND PELVIS W IV CONTRAST [facility] Department of Radiology [address] [place] [id number] Patient Name: ESTELLA JEFFERY : 1965 Sex: M Age: Race: Other Pt. Location: [facility] Patient Status: E Ordered Date: 07/24/2020 3:15:00 [...] achievable. Electronically signed: Miguelito Balderas. Transcribed by: [email or web address], User Resident: Electronically Signed by: MIGUELITO BALDERAS @ 07/24/2020 04:14 PM Normal [facility] Comment on above: Order Comment: No: D o not add to previous draw LACTATE BLOODon 07-24-2020 Lactate [Moles/Vol] 1.0 mmol/L Normal 0.5-2.2 [facility] Comment on above: Performed By: #### 1 0054 #### [address] LIPASE BLOODon 07-24-2020 LIPASE 7 Units/L Low 11-82 [facility] Comment on above: Performed By: #### 3 5200, 04296, 24966 #### [address] PORTABLE CHEST 1 VIEWon PORTABLE CHEST 1 VIEW [facility] Department of Radiology [address] [place] [address] Patient Name: ESTELLA JEFFERY : 1965 Sex: M Age: Race: Other Pt. Location: [facility] Patient Status: E Ordered Date: 07/24/2020 3:15:00 [...] indicated. Electronically signed: Miguelito Balderas. Transcribed by: [email or web address], User Resident: Electronically Signed by: MIGUELITO BALDERAS @ 07/24/2020 03:58 PM Normal [facility] Comment on above: Order Comment: No: D o not add to previous draw TROPONIN-Ion 07-24-2020 Troponin I.cardiac [Mass/Vol] 0.00 ng/mL Normal 0.00-0.04 [facility] Comment on above: Result Comment: REFE RENCE RANGES: 0.00 - 0.14 ng/ml NEGATIVE 0.15 - 0.25 ng/ml INDETERMINATE > 0.25 ng/ml INDICATIVE OF AN M.I. Performed By: #### 3 5200, 89454, 74609 #### [facility] [address] URINALYSIS REFLEXon 07-24-19 Appearance (U) CLEAR Normal CLEAR [facility] Comment on above: Order Comment: No: D o not add to previous draw Performed By: #### 0 0071, 10807 #### [facility] [address] [place] [address], [place] Bilirubin Ql (U) Negative Normal NEGATIVE [facility] Comment on above: Order Comment: No: D o not add to previous draw Performed By: #### 0 0071, 99711 #### [facility] [address] [place] [address], [place] Color (U) ANEL Abnormal YELLOW [facility] Comment on above: Order Comment: No: D o not add to previous draw Performed By: #### 0 0071, 01630 #### [facility] [address] [place] [address], [place] Glucose Ql (U) Negative Normal NEGATIVE [facility] Comment on above: Order Comment: No: D o not add to previous draw Performed By: #### 0 0071, 97987 #### [facility] [address] [place] [address], [place] Hemoglobin Ql (U) Negative Normal NEGATIVE [facility] Comment on above: Order Comment: No: D o not add to previous draw Performed By: #### 0 0071, 11659 #### [facility] [address] [place] [address], [place] KETONE 20 mg/dL Abnormal NEGATIVE [facility] Comment on above: Order Comment: No: D o not add to previous draw Performed By: #### 0 0071, 73486 #### [facility] [address] [place] [address], [place] LEUK DINO Negative Normal NEGATIVE [facility] Comment on above: Order Comment: No: D o not add to previous draw Performed By: #### 0 0071, 71839 #### [facility] [address] [place] [address], [place] MICRO NOT DONE Normal [facility] Comment on above: Order Comment: No: D o not add to previous draw Result Comment: Micr oscopics not performed on urines with negative chemical reactions unless requested in original order Performed By: #### 0 0071, 57679 #### [facility] [address] [place] [address], [facility] Nitrite Ql (U) Negative Normal NEGATIVE [facility] Comment on above: Order Comment: No: D o not add to previous draw Performed By: #### 0 0071, 60198 #### [facility] [address] [place] [address], [facility] pH (U) 5.0 [pH] Normal 5.0-8.0 [facility] Comment on above: Order Comment: No: D o not add to previous draw Performed By: #### 0 0071, 45551 #### [facility] [address] [place] [address], [facility] Protein Ql (U) Negative Normal NEGATIVE [facility] Comment on above: Order Comment: No: D o not add to previous draw Performed By: #### 0 0071, 58983 #### [facility] [address] [place] [address], [facility] SPEC GRAV 1.084 High 1.015-1.020 [facility] Comment on above: Order Comment: No: D o not add to previous draw Result Comment: DONE BY DILUTION Performed By: #### 0 0071, 56157 #### [facility] [address] [place] [address], [facility] BASIC METABOLIC PANELon 02-0 Calcium [Mass/Vol] 8.8 mg/dL Normal 8.6-10.3 [facility] Comment on above: Order Comment: No: D o not add to previous draw Performed By: #### 0 0071, 70687 #### [facility] [address] [place] [id number], [facility] Chloride [Moles/Vol] 103 mmol/L Normal 98-107 [facility] Comment on above: Order Comment: No: D o not add to previous draw Performed By: #### 0 0071, 89274 #### [facility] [address] [place] [address], [place] CO2 [Moles/Vol] 27 mmol/L Normal 21-31 [facility] Comment on above: Order Comment: No: D o not add to previous draw Performed By: #### 0 0071, 84293 #### [facility] [address] [place] [address], [facility] Creatinine [Mass/Vol] 0.87 mg/dL Normal 0.70-1.30 [facility] Comment on above: Order Comment: No: D o not add to previous draw Performed By: #### 0 0071, 18275 #### [facility] [address] [place] [address], [facility] GFR/1.73 sq M.predicted among blacks MDRD (S/P/Bld) [Vol rate/Area] mL/min/{1.73_m2} Normal >60 [facility] Comment on above: Order Comment: No: D o not add to previous draw Performed By: #### 0 0071, 13184 #### [facility] [address] [place] [address], [facility] GFR/1.73 sq M.predicted among non-blacks MDRD (S/P/Bld) [Vol rate/Area] mL/min/{1.73_m2} Normal >60 [facility] Comment on above: Order Comment: No: D o not add to previous draw Performed By: #### 0 0071, 16659 #### [facility] [address] [place] [address], [place] Glucose [Mass/Vol] 156 mg/dL High 70-100 [facility] Comment on above: Order Comment: No: D o not add to previous draw Performed By: #### 0 0071, 71062 #### [facility] [address] [place] [address], [facility] Potassium [Moles/Vol] 3.9 mmol/L Normal 3.5-5.1 [facility] Comment on above: Order Comment: No: D o not add to previous draw Performed By: #### 0 0071, 74760 #### [facility] [address] [place] [address], [place] Sodium [Moles/Vol] 136 mmol/L Normal 136-145 [facility] Comment on above: Order Comment: No: D o not add to previous draw Performed By: #### 0 0071, 97433 #### [facility] [address] [place] [id number], [facility] Urea nitrogen [Mass/Vol] 8 mg/dL Normal 7-25 [facility] Comment on above: Order Comment: No: D o not add to previous draw Performed By: #### 0 0071, 78460 #### [facility] [address] [place] [id number], [facility] CBC COMPLETE BLOOD COUNTon 0 - Erythrocyte distribution width (RBC) [Ratio] 15.1 % High 11.5-15.0 [facility] Comment on above: Order Comment: No: D o not add to previous draw Performed By: #### 0 0071 #### [facility] [address] [place] [address], [facility] Hematocrit (Bld) [Volume fraction] 44.1 % Normal 39.0-50.0 [facility] Comment on above: Order Comment: No: D o not add to previous draw Performed By: #### 0 0071 #### [facility] [address] [place] [address], [facility] Hemoglobin (Bld) [Mass/Vol] 13.4 g/dL Normal 13.0-17.0 [facility] Comment on above: Order Comment: No: D o not add to previous draw Performed By: #### 0 0071 #### [facility] [address] [place] [address], [facility] MCH (RBC) [Entitic mass] 23.1 pg Low 27.0-33.0 [facility] Comment on above: Order Comment: No: D o not add to previous draw Performed By: #### 0 0071 #### [facility] [address] [place] [id number], [facility] MCHC (RBC) [Mass/Vol] 30.4 g/dL Low 32.0-35.0 [facility] Comment on above: Order Comment: No: D o not add to previous draw Performed By: #### 0 0071 #### [facility] [address] [place] [address], [facility] MCV (RBC) [Entitic vol] 76.0 fL Low 82.0-98.0 [facility] Comment on above: Order Comment: No: D o not add to previous draw Performed By: #### 0 0071 #### [facility] [address] [place] [address], [facility] Nucleated RBC/100 WBC (Bld) [Ratio] 0 % Normal 0-0 [facility] Comment on above: Order Comment: No: D o not add to previous draw Performed By: #### 0 0071 #### [facility] [address] [facility] [address], [facility] PLAT CNT 190 10*3/uL Normal 150-400 [facility] Comment on above: Order Comment: No: D o not add to previous draw Performed By: #### 0 0071 #### [facility] [address] [facility] [address], [facility] RBC (Bld) [#/Vol] 5.80 10*6/uL High 4.20-5.70 [facility] Comment on above: Order Comment: No: D o not add to previous draw Performed By: #### 0 0071 #### [facility] [address] [facility] [address], [facility] WBC (Bld) [#/Vol] 7.98 10*3/uL Normal 4.00-10.60 [facility] Comment on above: Order Comment: No: D o not add to previous draw Performed By: #### 0 0071 #### [facility] [address] [place] [address], [facility] MAGNESIUM BLOODon 07-23-2020 Magnesium [Mass/Vol] 1.9 mg/dL Normal 1.9-2.7 [facility] Comment on above: Order Comment: No: D o not add to previous draw Performed By: #### 0 0071, 60995 #### [facility] [address] [facility] [place] [id number], [facility] POC GLUCOSE LABon 07-23-2020 Glucose [Mass/Vol] 140 mg/dL High 70-100 [facility] Comment on above: Performed By: #### 0 0071 #### [facility] [address] [place] [address], [place] Glucose [Mass/Vol] 155 mg/dL High 70-100 [facility] Comment on above: Performed By: #### 0 0071, 16199 #### [facility] [address] [facility] [place] [address], [place] Glucose [Mass/Vol] 164 mg/dL High 70-100 [facility] Comment on above: Performed By: #### 0 0071 #### [facility] [address] [place] [address], [facility] BASIC METABOLIC PANELon Calcium [Mass/Vol] 8.3 mg/dL Low 8.6-10.3 [facility] Comment on above: Order Comment: No: D o not add to previous draw Performed By: #### 0 0071, 25206 #### [facility] [address] [place] [address], [facility] Chloride [Moles/Vol] 103 mmol/L Normal 98-107 [facility] Comment on above: Order Comment: No: D o not add to previous draw Performed By: #### 0 0071, 32757 #### [facility] [address] [place] [address], [place] CO2 [Moles/Vol] 26 mmol/L Normal 21-31 [facility] Comment on above: Order Comment: No: D o not add to previous draw Performed By: #### 0 0071, 26392 #### [facility] [address] [place] [address], [place] Creatinine [Mass/Vol] 0.90 mg/dL Normal 0.70-1.30 [facility] Comment on above: Order Comment: No: D o not add to previous draw Performed By: #### 0 0071, 70510 #### [facility] [address] [place] [address], [place] GFR/1.73 sq M.predicted among blacks MDRD (S/P/Bld) [Vol rate/Area] mL/min/{1.73_m2} Normal >60 [facility] Comment on above: Order Comment: No: D o not add to previous draw Performed By: #### 0 0071, 64602 #### [facility] [address] [place] [address], [place] GFR/1.73 sq M.predicted among non-blacks MDRD (S/P/Bld) [Vol rate/Area] mL/min/{1.73_m2} Normal >60 [facility] Comment on above: Order Comment: No: D o not add to previous draw Performed By: #### 0 0071, 77998 #### [facility] [address] [place] [address], [place] Glucose [Mass/Vol] 166 mg/dL High 70-100 [facility] Comment on above: Order Comment: No: D o not add to previous draw Performed By: #### 0 0071, 74477 #### [facility] [address] [place] [address], [place] Potassium [Moles/Vol] 4.1 mmol/L Normal 3.5-5.1 [facility] Comment on above: Order Comment: No: D o not add to previous draw Performed By: #### 0 0071, 14484 #### [facility] [address] [place] [address], [place] Sodium [Moles/Vol] 136 mmol/L Normal 136-145 [facility] Comment on above: Order Comment: No: D o not add to previous draw Performed By: #### 0 0071, 70234 #### [facility] [address] [place] [address], [place] Urea nitrogen [Mass/Vol] 12 mg/dL Normal 7-25 [facility] Comment on above: Order Comment: No: D o not add to previous draw Performed By: #### 0 0071, 84748 #### [facility] [address] [place] [address], [place] CBC COMPLETE BLOOD COUNTon 0 - Erythrocyte distribution width (RBC) [Ratio] 14.9 % Normal 11.5-15.0 [facility] Comment on above: Order Comment: No: D o not add to previous draw Performed By: #### 0 0071, 43132 #### [facility] [address] [place] [address], [place] Hematocrit (Bld) [Volume fraction] 42.8 % Normal 39.0-50.0 [facility] Comment on above: Order Comment: No: D o not add to previous draw Performed By: #### 0 0071, 39878 #### [facility] [address] [place] [address], [place] Hemoglobin (Bld) [Mass/Vol] 13.3 g/dL Normal 13.0-17.0 [facility] Comment on above: Order Comment: No: D o not add to previous draw Performed By: #### 0 0071, 73653 #### [facility] [address] [facility] [place] [address], [facility] MCH (RBC) [Entitic mass] 23.4 pg Low 27.0-33.0 [facility] Comment on above: Order Comment: No: D o not add to previous draw Performed By: #### 0 0071, 06009 #### [facility] [address] [place] [address], [facility] MCHC (RBC) [Mass/Vol] 31.1 g/dL Low 32.0-35.0 [facility] Comment on above: Order Comment: No: D o not add to previous draw Performed By: #### 0 0071, 45854 #### [facility] [address] MCV (RBC) [Entitic vol] 75.2 fL Low 82.0-98.0 [facility] Comment on above: Order Comment: No: D o not add to previous draw Performed By: #### 0 0071, 39236 #### [facility] [address] [facility]. [address] Nucleated RBC/100 WBC (Bld) [Ratio] 0 % Normal 0-0 [facility] Comment on above: Order Comment: No: D o not add to previous draw Performed By: #### 0 0071, 91113 #### [facility] [address] [facility] [address], [facility] PLAT CNT 211 10*3/uL Normal 150-400 [facility] Comment on above: Order Comment: No: D o not add to previous draw Performed By: #### 0 0071, 08441 #### [facility] [address] [place] [address], [facility] RBC (Bld) [#/Vol] 5.69 10*6/uL Normal 4.20-5.70 [facility] Comment on above: Order Comment: No: D o not add to previous draw Performed By: #### 0 0071, 35900 #### [facility] [address] [facility]. [address] WBC (Bld) [#/Vol] 8.55 10*3/uL Normal 4.00-10.60 [facility] Comment on above: Order Comment: No: D o not add to previous draw Performed By: #### 0 0071, 69701 #### [facility] [address] MAGNESIUM BLOODon 07-22-2020 Magnesium [Mass/Vol] 2.0 mg/dL Normal 1.9-2.7 [facility] Comment on above: Order Comment: No: D o not add to previous draw Performed By: #### 0 0071, 58517 #### [facility] [address] [facility]. [address] Operative Reporton Operative Report MR#: [id number] I [facility] Pt. Name: Estella Jeffery Room #: [id number] Discharge Date: Birthdate: 1965 OPERATIVE REPORT DATE [...] Izaguirre M.D. Date Trans: 07/21/2020 10:04 P/mmo [id number] cc: Jae Lopez M.D. [address] [id number] Normal [facility] POC GLUCOSE LABon 07-22-2020 Glucose [Mass/Vol] 142 mg/dL High 70-100 [facility] Comment on above: Performed By: #### 0 0071, 61617 #### [facility] [address] [place] [address], [place] Glucose [Mass/Vol] 113 mg/dL High 70-100 [facility] Comment on above: Performed By: #### 0 0071, 58784 #### [facility] [address] [place] [address], [place] Glucose [Mass/Vol] 153 mg/dL High 70-100 [facility] Comment on above: Performed By: #### 0 0071, 82697 #### [facility] [address] [place] [address], [place] Glucose [Mass/Vol] 127 mg/dL High 70-100 [facility] Comment on above: Performed By: #### 0 [id number], [id number] #### [facility] [address] [place] [address], [place] Glucose [Mass/Vol] 176 mg/dL High 70-100 [facility] Comment on above: Performed By: #### 0 [id number] #### [facility] [address] [place] [address], [place] *MRSA/MSSA DNA NASALon 07-21 *MRSA/MSSA DNA NASAL Clinical Report: (D ) Specimen: NASAL SWAB Collected: 07/21/2020 00:00 Status: Final Last Updated: 07/21/2020 15:28 (1) No collection time noted on specimen or requisition. The collection time recorded is the time of receipt in the lab. MSSA DNA (Final) Methicillin Susceptible Staphylococcus aureus DNA Detected MRSA DNA (Final) Negative Normal [facility] Comment on above: Order Comment: No: D o not add to previous draw Performed By: #### 0 [id number], [id number] #### [facility] [address] [facility]. [address] POC GLUCOSE LABon 07-21-2020 Glucose [Mass/Vol] 168 mg/dL High 70-100 The [facility] Comment on above: Performed By: #### 0 [id number] #### [facility] [address] [facility] [address], [facility] Glucose [Mass/Vol] 211 mg/dL High 70-100 [facility] Comment on above: Performed By: #### 0 [id number], [id number] #### [facility] [address] [facility] [address], [facility] Glucose [Mass/Vol] 117 mg/dL High 70-100 [facility] Comment on above: Performed By: #### 0 [id number], [id number] #### [facility] [address] [facility]. [address] *SARS-CoV-2 COVID-19on 07-18 SARS-CoV-2 (COVID-19) RNA LILLIANA+probe Ql (Unsp spec) Not detected Normal Not Detected [facility] Comment on above: Order Comment: No: D o not add to previous draw Performed By: #### 0 [id number], [id number] #### [facility] [address] [facility] [address], [facility] BASIC METABOLIC PANELon 01-2 9-2021 Calcium [Mass/Vol] 9.2 mg/dL Normal 8.6-10.3 [facility] Comment on above: Performed By: #### 0 [id number] #### [facility] [address] [place] [address], [facility] Chloride [Moles/Vol] 100 mmol/L Normal 98-107 [facility] Comment on above: Performed By: #### 0 [id number] #### [facility] [address] [place] [address], [facility] CO2 [Moles/Vol] 30 mmol/L Normal 21-31 [facility] Comment on above: Performed By: #### 0 [id number] #### [facility] [address] [place] [address], [facility] Creatinine [Mass/Vol] 1.01 mg/dL Normal 0.70-1.30 [facility] Comment on above: Performed By: #### 0 0071 #### [facility] [address] [place] [address], [place] GFR/1.73 sq M.predicted among blacks MDRD (S/P/Bld) [Vol rate/Area] mL/min/{1.73_m2} Normal >60 [facility] Comment on above: Performed By: #### 0 [id number] #### [facility] [address] [place] [address], [place] GFR/1.73 sq M.predicted among non-blacks MDRD (S/P/Bld) [Vol rate/Area] mL/min/{1.73_m2} Normal >60 [facility] Comment on above: Performed By: #### 0 [id number] #### [facility] [address] [place] [address], [place] Glucose [Mass/Vol] 121 mg/dL High 70-100 [facility] Comment on above: Performed By: #### 0 [id number] #### [facility] [address] [place] [address], [facility] Potassium [Moles/Vol] 4.4 mmol/L Normal 3.5-5.1 [facility] Comment on above: Performed By: #### 0 [id number] #### [facility] [address] [facility] [address], [facility] Sodium [Moles/Vol] 135 mmol/L Low 136-145 [facility] Comment on above: Performed By: #### 0 0071 #### [facility] [address] [place] [address], [facility] Urea nitrogen [Mass/Vol] 14 mg/dL Normal 7-25 [facility] Comment on above: Performed By: #### 0 0071 #### [facility] [address] CBC W/DIFFon 07-18-2020 ABS IMM GRANS 0.0 10*3/uL Normal 0.0-0.2 [facility] Comment on above: Performed By: #### 0 0071 #### [facility] [address] [place] [address], [facility] ABS NEUTROPHILS 2.5 10*3/uL Normal 1.6-7.6 The [facility] Comment on above: Performed By: #### 0 0071 #### [facility] [address] [place] [address], [facility] Basophils (Bld) [#/Vol] 0.0 10*3/uL Normal 0.0-0.2 [facility] Comment on above: Performed By: #### 0 0071 #### [facility] [address] [place] [address], [facility] Basophils/100 WBC (Bld) 0.9 % Normal 0.0-1.0 [facility] Comment on above: Performed By: #### 0 0071 #### [facility] [address] Eosinophils (Bld) [#/Vol] 0.1 10*3/uL Normal 0.0-0.5 [facility] Comment on above: Performed By: #### 0 0071 #### [facility] [address] [facility] [address], [facility] Eosinophils/100 WBC (Bld) 1.2 % Normal 0.0-6.0 [facility] Comment on above: Performed By: #### 0 [id number] #### [facility] [address] Erythrocyte distribution width (RBC) [Ratio] 14.8 % Normal 11.5-15.0 [facility] Comment on above: Performed By: #### 0 0071 #### [facility] [address] Hematocrit (Bld) [Volume fraction] 47.6 % Normal 39.0-50.0 [facility] Comment on above: Performed By: #### 0 0071 #### [facility] [address] Hemoglobin (Bld) [Mass/Vol] 14.5 g/dL Normal 13.0-17.0 [facility] Comment on above: Performed By: #### 0 0071 #### [facility] [address] [place] [address], [facility] IMMATURE GRANS 0.2 % Normal 0.0-1.0 [facility] Comment on above: Performed By: #### 0 0071 #### [facility] [address] [place] [address], [facility] Lymphocytes (Bld) [#/Vol] 1.4 10*3/uL Normal 1.2-4.0 [facility] Comment on above: Performed By: #### 0 0071 #### [facility] [address] [place] [address], [facility] Lymphocytes/100 WBC (Bld) 32.9 % Normal 20.0-45.0 [facility] Comment on above: Performed By: #### 0 0071 #### [facility] [address] [facility] [place] [address], [facility] MCH (RBC) [Entitic mass] 23.2 pg Low 27.0-33.0 [facility] Comment on above: Performed By: #### 0 [id number] #### [facility] [address] [facility] [address], [facility] MCHC (RBC) [Mass/Vol] 30.5 g/dL Low 32.0-35.0 [facility] Comment on above: Performed By: #### 0 [id number] #### [facility] [address] [place] [address], [facility] MCV (RBC) [Entitic vol] 76.0 fL Low 82.0-98.0 [facility] Comment on above: Performed By: #### 0 [id number] #### [facility] [address] [place] [address], [facility] Monocytes (Bld) [#/Vol] 0.3 10*3/uL Normal 0.1-1.0 [facility] Comment on above: Performed By: #### 0 [id number] #### [facility] [address] [facility] [address], [facility] MONOS 7.5 % Normal 5.0-12.0 [facility] Comment on above: Performed By: #### 0 [id number] #### [facility] [address] [place] [address], [facility] Neutrophils/100 WBC (Bld) 57.3 % Normal 40.0-72.0 [facility] Comment on above: Performed By: #### 0 0071 #### [facility] [address] [place] [address], [facility] Nucleated RBC/100 WBC (Bld) [Ratio] 0 % Normal 0-0 [facility] Comment on above: Performed By: #### 0 [id number] #### [facility] [address] [place] [address], [facility] PLAT CNT 222 10*3/uL Normal 150-400 The [facility] Comment on above: Performed By: #### 0 0071 #### [facility] [address] RBC (Bld) [#/Vol] 6.26 10*6/uL High 4.20-5.70 [facility] Comment on above: Performed By: #### 0 0071 #### [facility] [address] WBC (Bld) [#/Vol] 4.28 10*3/uL Normal 4.00-10.60 [facility] Comment on above: Performed By: #### 0 0071 #### [facility] [address] PROTHROMBIN TIMEon 1 INR Coag (PPP) [Relative time] 0.95 {INR} Normal 0.91-1.16 [facility] Comment on above: Result Comment: ACCC P [...] CHEST 1995;[id number]. Performed By: #### 0 [id number], [id number] #### [facility] [address] [place] [address], [facility] PT Coag (PPP) [Time] 12.7 s Normal 12.3-14.8 [facility] Comment on above: Result Comment: ALL RESULTS MUST BE INTERPRETED WITH RESPECT TO BLOOD DRAWING ARTIFACT OR DILUTION ERROR OF ANTICOAGULANT AT THE TIME OF SAMPLING. Performed By: #### 0 [id number], [id number] #### [facility] [address] [place] [address], [facility] Vital Signs Date Time Vital Sign Value Performing Clinician Facility 11-06-2024 13:44-0400 Body height 165.1 cm J[facility]-C [facility] 11-06-[facility] 13:44-0400 Body mass index (BMI) [Ratio] 27.46 kg/m2 Jaz Mici PA-C [facility] 11-06-2024 13:44-0400 Body weight 74.84 kg Jaz Mici PA-C Work Phone: [facility] 11-06-2024 13:44-0400 Diastolic blood pressure 80 mm[Hg] Jaz Mici PA-C Work Phone: [facility] 11-06-2024 13:44-0400 Heart rate 71 /min Jaz Mici PA-C Work Phone: [facility] 11-06-2024 13:44-0400 SaO2% (BldA) [Mass fraction] 96 % Jaz Mici PA-C Work Phone: [facility] 11-06-2024 13:44-0400 Systolic blood pressure 132 mm[Hg] Jaz Mici PA-C Work Phone: [place] [facility] 10-15-2024 14:44-0400 Body height 165.1 cm Rachele Lopez MD Work Phone: [place] [facility] 10-15-2024 14:44-0400 Body mass index (BMI) [Ratio] 27.31 kg/m2 Rachele Lopez MD Work Phone: [place] [facility] 10-15-2024 14:44-0400 Body weight 74.44 kg Rachele Lopez MD Work Phone: [place] [facility] 10-15-2024 14:44-0400 Diastolic blood pressure 61 mm[Hg] Rachele Lopez MD Work Phone: [place] [facility] 10-15-2024 14:44-0400 Heart rate 100 /min Rachele Lopez MD Work Phone: [place] [facility] 10-15-2024 14:44-0400 Systolic blood pressure 93 mm[Hg] Rachele Lopez MD Work Phone: [facility] 07-30-2024 12:33-0500 Body mass index (BMI) [Ratio] 27.96 kg/m2 Fidelina Spanower HEAD SULFIDE OPERATOR.[employer]IRE BRUSH MAKER Work Phone: [facility] 07-30-2024 12:33-0500 Body temperature 97.59 [degF] Fidelina Spanower HEAD SULFIDE OPERATOR.WIRE BRUSH MAKER Work Phone: [facility] 07-30-2024 12:33-0500 Body weight 76.2 kg Fidelina Spanower HEAD SULFIDE OPERATOR.WIRE BRUSH MAKER Work Phone: [facility] 07-30-2024 12:33-0500 Diastolic blood pressure 63 mm[Hg] Fidelina Spanower HEAD SULFIDE OPERATOR.WIRE BRUSH MAKER Work Phone: [facility] 07-30-2024 12:33-0500 Heart rate 84 /min Fidelina Spanower HEAD SULFIDE OPERATOR.WIRE BRUSH MAKER Work Phone: [facility] 07-30-2024 12:33-0500 Systolic blood pressure 99 mm[Hg] Fidelina Fisher WILLIAM Work Phone: [facility] 07-22-2024 08:01-0500 Diastolic blood pressure 70 mm[Hg] Luiz Shipley MD Work Phone: [facility] 07-22-2024 08:01-0500 Heart rate 92 /min Luiz Shipley MD Work Phone: [facility] 07-22-2024 08:01-0500 SaO2% (BldA) [Mass fraction] 95 % Luiz Shipley MD Work Phone: [facility] 07-22-2024 08:01-0500 Systolic blood pressure 105 mm[Hg] Luiz Shipley MD Work Phone: [facility] 07-22-2024 05:00-0500 Body temperature 97.7 [degF] Luiz Shipley MD Work Phone: [facility] 07-22-2024 05:00-0500 Respiratory rate 15 /min Luiz Shipley MD Work Phone: [facility] 07-12-2024 07:00-0500 Body mass index (BMI) [Ratio] 30.78 kg/m2 Luiz Shipley MD Work Phone: [facility] 07-12-2024 07:00-0500 Body weight 83.9 kg Luiz Shipley MD Work Phone: [facility] 06-21-2024 10:23-0500 Heart rate 69 /min Danni Lue [facility] 06-21-2024 10:23-0500 SaO2% (BldA) [Mass fraction] 98 % Danni Lue [facility] 06-21-2024 10:23-0500 Diastolic blood pressure 88 mm[Hg] Danni Lue [facility] 06-21-2024 10:23-0500 Mean blood pressure 104 mm[Hg] Danni Lue [facility] 06-21-2024 10:23-0500 Systolic blood pressure 135 mm[Hg] Danni Lue [facility] 03-15-2024 14:28-0400 Body height 165.1 cm MD Jae Lopez Work Phone: [facility] 03-15-2024 14:28-0400 Body weight 73.93 kg MD Jae Lopez Work Phone: [facility] 01-11-2024 09:54-0400 Blood Pressure Location Danni Lue [facility] 01-11-2024 09:54-0400 Body temperature 98.6 [degF] Danni Lue [facility] 01-11-2024 09:54-0400 Diastolic blood pressure 72 mm[Hg] Danni Lue [facility] 01-11-2024 09:54-0400 Heart rate 57 /min Danni Lue [facility] 01-11-2024 09:54-0400 Respiratory rate 16 /min Danni Lue [facility] 01-11-2024 09:54-0400 Systolic blood pressure 119 mm[Hg] Danni Lue [facility] 10-12-2022 12:01-0400 Diastolic blood pressure 74 mm[Hg] Miguelito Chicas APRN.CNP Work Phone: [facility] 10-12-2022 12:01-0400 Heart rate 58 /min Miguelito Chicas HEAD SULFIDE OPERATOR.WIRE BRUSH MAKER Work Phone: [facility] 10-12-2022 12:01-0400 Systolic blood pressure 117 mm[Hg] Miguelito Aviva HEAD SULFIDE OPERATOR.W[employer] BRUSH MAKER Work Phone: [facility] 04-30-2022 10:56-0500 Body weight 86.23 kg Gera Cardona DO Work Phone: [facility] 04-30-2022 10:56-0500 Diastolic blood pressure 91 mm[Hg] Gera Cardona DO Work Phone: [facility] 04-30-2022 10:56-0500 Heart rate 82 /min Gera Cardona DO Work Phone: [facility] 04-30-2022 10:56-0500 SaO2% (BldA) [Mass fraction] 97 % Gera Cardona DO Work Phone: [facility] 04-30-2022 10:56-0500 Systolic blood pressure 139 mm[Hg] Gera Bravolas DO Work Phone: [facility] 04-26-2022 03:51-0500 Body height 165.1 cm Roosevelt Merlos MD Work Phone: [facility] 04-26-2022 03:51-0500 Body weight 83.6 kg Roosevelt Merlos MD Work Phone: [facility] 04-22-2022 16:41-0400 Diastolic blood pressure 100 mm[Hg] Brenda Blanco HEAD SULFIDE OPERATOR.WIRE BRUSH MAKER Work Phone: [facility] 04-22-2022 16:41-0400 Systolic blood pressure 156 mm[Hg] Brenda Blanco HEAD SULFIDE OPERATOR.WIRE BR[employer] MAKER Work Phone: [facility] 04-22-2022 16:17-0400 Body temperature 98.29 [degF] Brenda Francis HEAD SULFIDE OPERATOR.WIRE BRUSH MAKER Work Phone: [facility] 04-22-2022 16:17-0400 Body weight 86.27 kg Brenda Blanco HEAD SULFIDE OPERATOR.W[employer] BR[employer] MAKER Work Phone: [facility] 04-22-2022 16:17-0400 Heart rate 98 /min Brenda Blanco HEAD SULFIDE OPERATOR.WIRE BR[employer] MAKER Work Phone: [facility] 04-22-2022 16:17-0400 SaO2% (BldA) [Mass fraction] 100 % Brenda Blanco HEAD SULFIDE OPERATOR.W[employer] BR[employer] MAKER Work Phone: [facility] Encounters Encounter Date Encounter Type Care Provider Facility Start: 02-15-2025 End: 02-15-[address] [facility] Start: 12-18-2024 End: 12-18-2024 Telephone encounter Roberta Bui RN [facility] Comment on above: MRI Start: 11-06-2024 End: 11-06-2024 Office outpatient visit 15 minutes [facility] PA-C Work Phone: [facility] Comment on above: Orthostatic hypotens ion (Primary Dx); Bradycardia Start: 11-06-2024 End: 11-06-2024 ambulatory [facility] Start: 10-26-2024 End: 10-26-2024 Chart abstracting Scanning Provider External [facility] Start: 10-23-2024 End: 10-23-2024 Telephone encounter Germaine Ellis [place] [facility] Nina kramer Comment on above: Hypotension Start: 10-19-2024 End: 10-24-2024 Evaluation and management of inpatient JAE Murillo JOHN [facility] Start: 10-15-2024 End: 10-15-2024 Office outpatient new 45 minutes Rachele Lopez MD Work Phone: [facility] of [facility] Comment on above: 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); Colloid cyst of third ventricle (CMS-HCC); Episode of confusion Start: 10-15-2024 End: 10-15-2024 ambulatory RACHELE LOPEZ [facility] Start: 07-30-2024 End: 07-30-2024 ambulatory FIDELINA FISHER Facility:[facility] Start: 07-30-2024 End: 07-30-2024 Patient encounter procedure Fidelina Fisher HEAD SULFIDE OPERATOR.WIRE BR[employer] MAKER Work Phone: [facility] Comment on above: History of traumatic brain injury (Primary Dx); Dementia, unspecified dementia severity, unspecified dementia type, unspecified whether behavioral, psychotic, or mood disturbance or anxiety (HCC); Cognitive deficits; Impaired mobility and ADLs; 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) Start: 07-22-2024 End: 07-22-2024 Evaluation and management of inpatient CHANDLER PALMA [facility] Start: 07-20-2024 End: 07-20-2024 Telephone encounter Janice Mcdermott MD Work Phone: Neurology Start: 07-18-2024 End: 07-20-2024 Telephone encounter Narciso Guerra MD Work Phone: Neurology Comment on above: Patient Question Start: 07-17-2024 End: 07-18-2024 Telephone encounter Narciso Guerra MD Work Phone: Neurology Comment on above: Patient Question Start: 07-12-2024 End: 07-12-2024 Telephone encounter Kelly Hilar[facility] Comment on above: patient concern Start: 07-11-2024 ambulatory Danni Graham Facility:[facility] Start: 07-10-2024 ambulatory [facility] Start: 07-10-2024 End: 07-10-2024 Evaluation and management of inpatient CECILE ROTH-VILLAREAL [facility] Start: 07-08-2024 End: 07-08-2024 Evaluation and management of inpatient [facility] Start: 07-08-2024 End: 07-22-2024 Evaluation and management of inpatient [facility] Start: 07-06-2024 End: 07-06-2024 Evaluation and management of inpatient ANUHemanth Forrest ROMELIA [facility] Start: 07-06-2024 End: 02-02-2025 Evaluation and management of inpatient Nichol Heath MD Work Phone: [facility] - [facility] 8 Acute Comment on above: Dementia with behavi oral disturbance ([facility]) (Primary Dx); Status post colostomy, follow-up exam ([facility]) Start: 07-03-2024 ambulatory [facility] Start: 07-03-2024 End: 07-05-2024 Emergency department patient visit [facility] Start: 06-25-2024 ambulatory Elliott Romeo acility:[facility] Start: 06-24-2024 End: 06-24-2024 Emergency department patient visit MAITE MORRIS [facility] Start: 06-21-2024 End: 06-21-2024 ambulatory Danni Graham Facility:[facility] Start: 06-21-2024 End: 06-21-2024 Patient encounter procedure Danni Graham [facility] Start: 05-02-2024 End: 06-27-2024 Pre-admission assessment Danni Graham [facility] Start: 03-15-2024 End: 03-15-2024 Patient encounter procedure MD Jae Lopez Work Phone: [facility] [place] Work Phone: Start: 03-15-2024 End: 03-15-2024 ambulatory MD Jae Lopez Work Phone: [facility] Work Phone: Start: 03-09-2024 End: 03-09-2024 Patient Msg Lisandra Gomez APRN.WIRE BR[employer] MAKER Work Phone: Neurology Comment on above: refill Start: 03-09-2024 End: 03-09-2024 Refill Agustina Plascencia MD Work Phone: Neurology Comment on above: Refill Request Start: 01-25-2024 End: 01-25-2024 ambulatory Danni Graham Facility:[facility] Start: 01-25-2024 End: 01-25-2024 Off-Site Danni Graham [facility] Derek Start: 01-11-2024 End: 01-11-2024 ambulatory Danni Graham Facility:[facility] Start: 01-11-2024 End: 01-11-2024 Patient encounter procedure Danni Graham [facility] Janice Start: 12-21-2023 ambulatory Danni Graham Facility:[facility] Start: 12-06-2023 Refill Agustina orellana MD Work Phone: Neurology Comment on above: Refill Request donepezil refill Start: 03-07-2023 Patient entered into trial Tabby Naqvi Research Coordinator [facility] Start: 03-07-2023 Telephone encounter Tabby locke Research Coordinator Neurology Comment on above: Research ([facility] (IRB [id number])) Start: 02-08-2023 E-mail encounter fro m caregiver Sonal Weinstein APRN.[employer] BR[employer] MAKER Work Phone: [facility] Start: 02-08-2023 Follow-up encounter Sonal Beltran APRN.WIRE BR[employer] MAKER Work Phone: Neurology Comment on above: sleep follow up Start: 02-08-2023 Patient entered into trial Tabby Naqvi Research Coordinator [facility] Start: 02-08-2023 Telephone encounter Tabby locke Research Coordinator Neurology Comment on above: Research ([facility] (IRB [id number]) Interest) Start: 02-04-2023 Telephone encounter Sonal Beltran APRN.W[employer] BR[employer] MAKER Work Phone: Neurology Comment on above: PAP Therapy Follow U p (12/18/22 - 01/16/[address] FROM DME ) Start: 02-02-2023 Refill Agustina orellana MD Work Phone: Neurology Comment on above: Refill Request Start: 01-13-2023 Telephone encounter Kary Gaxiola RN Work Phone: Neurology Comment on above: Returning Patient's Call Start: 12-03-2022 Telephone encounter Sonal Beltran HEAD SULFIDE OPERATOR.W[employer] BR[employer] MAKER Work Phone: Neurology Comment on above: PAP Rx Faxed (DME: S HS ) Start: 12-02-2022 End: 12-02-2022 Telemedicine consultation with patient Sonal Weinstein HEAD SULFIDE OPERATOR.WIRE BRUSH MAKER [facility] Start: 12-02-2022 End: 12-02-2022 ambulatory Agustina Plascencia MD Work Phone: Neurology Comment on above: Forms from [employer] Obstructive sleep ap carol (Primary Dx); Primary central sleep apnea; Hyperlipidemia, unspecified hyperlipidemia type Start: 12-02-2022 E-mail encounter fro m caregiver Agustina Plascencia MD Work Phone: [facility] Start: 11-17-2022 End: 11-17-2022 ambulatory Agustina Plascencia MD Work Phone: Neurology Comment on above: Alzheimer's disease (HCC) (Primary Dx) Start: 11-17-2022 End: 11-17-2022 Telemedicine consultation with patient Agustina Plascencia MD Work Phone: [facility] Start: 10-21-2022 End: 10-22-[address] JAE LOPEZ . Facility: Start: 10-12-2022 End: 10-12-2022 Patient encounter procedure Miguelito Chicas APRN.W[employer] BR[employer] MAKER Work Phone: Neurology Comment on above: Memory loss (Primary Dx); Encounter for lumbar puncture Start: 10-12-2022 End: 10-12-2022 Patient encounter status Miguelito Chicas APRN.WIRE BR[employer] MAKER Work Phone: Neurology Start: 08-12-2022 Chart abstracting Leah Mckeon RN Ne urology Start: 08-11-2022 End: 08-11-2022 ambulatory Agustina Plascencia MD Work Phone: Neurology Comment on above: Memory loss (Primary Dx) Start: 08-11-2022 End: 08-11-2022 Telemedicine consultation with patient Agustina Plascencia MD Work Phone: [facility] Start: 08-10-2022 E-mail encounter fro m caregiver [facility] Provider MARY ROMO [facility] Start: 08-10-2022 Patient encounter procedure [facility] Provider Neurology Comment on above: cancel appointment Start: 07-21-2022 End: 07-21-2022 ambulatory Agustina Plascencia MD Work Phone: Neurology Comment on above: Memory loss Start: 07-21-2022 End: 07-21-2022 Telemedicine consultation with patient Agustina Plascencia MD Work Phone: [facility] Start: 05-07-2022 ambulatory NARCISO GUERRA Facility:[facility] Start: 05-07-2022 End: 05-07-2022 Subsequent hospital visit by physician Mri [facility] (Istat/3t) Work Phone: [facility] Radiology MRI Comment on above: [...] Guerra MD Work Phone: [facility] Start: 04-27-2022 ambulatory Narciso Guerra MD Work Phone: Neurology Comment on above: lab results Start: 04-27-2022 E-mail encounter fro m caregiver Narciso Guerra MD Work Phone: [facility] Start: 04-25-2022 Chart abstracting Roosevelt Merlos MD Work Phone: Neurology Start: 04-22-2022 End: 04-22-2022 Office outpatient visit 15 minutes Brenda Blanco APRN.CNP Work Phone: [email or web address] [facility] Comment on above: Bilateral impacted c [...] Evaluation and management of inpatient JAE LOPEZ Facility:[facility] Start: 07-21-2020 End: 07-23-2020 ambulatory NAYA IZAGUIRRE Facility:[facility] Procedures Date Procedure Procedure Detail Performing Clinician [...] Start: 10-12-2022 TOURTELLOTTE BLOOD Og hew Aviva HEAD SULFIDE OPERATOR.WIRE BRUSH MAKER Work Phone: Start: 10-12-2022 Cell count misc body fluids w/differential count Miguelito Chicas HEAD SULFIDE OPERATOR.WIRE BRUSH MAKER Work Phone: Start: 10-12-2022 CSF MANUAL DIFF Miguelito Chicas HEAD SULFIDE OPERATOR.WIRE BRUSH MAKER Work Phone: Start: 10-12-2022 Glucose body fluid o ther than blood Miguelito Chicas HEAD SULFIDE OPERATOR.WIRE BRUSH MAKER Work Phone: Start: 05-07-2022 MRI 3D POST [...] Graham Start: 11-18-2018 Sigmoidostomy Danni Graham Start: 04-03-2019 Partial resection of colon Danni Graham Start: 01-05-2016 Biopsy of prostate Margarita Graham Comment on above: by Dr. Amato Extraction of cataract Danni Graham H/O: colostomy Status post colostomy, follow-up exam ([facility]) Nichol Heath MD Work Phone: Repair of artery Danni Graham Plan of Treatment Date Care Activity Detail Author Start: 11-23-2029 DTaP,Tdap and Td Vaccines (2 - Td or Tdap) DTaP,Tdap and Td Vaccines (2 - Td or Tdap) [facility] Start: 11-23-2029 Urine microalbumin profile DTaP,Tdap,Td Vaccine (2 - Td or Tdap) [facility] Start: 07-17-2027 Diabetes Screening Diabetes Screenin [facility] Start: 11-06-2025 Adult BMI Screening Adult BMI Screen ing [facility] Start: 11-06-2025 Tobacco Screening Tobacco Screening [facility] Start: 10-24-2025 Adult BMI Screening Adult BMI Screen ing [facility] Start: 10-22-2025 Adult BMI Screening Adult BMI Screen ing [facility] Start: 10-16-2025 Tobacco Screening Tobacco Screening [facility] Start: 10-15-2025 Adult BMI Follow Up Plan Adult BMI Follow Up Plan [facility] Start: 10-15-2025 Adult BMI Screening Adult BMI Screen ing [facility] Start: 10-15-2025 Depression Screening Depression Scre ening [facility] Start: 10-15-2025 Tobacco Screening Tobacco Screening [facility] Start: 07-11-2025 Tobacco Screening Tobacco Screening [facility] Start: 07-10-2025 Adult BMI Screening Adult BMI Screen ing [facility] Start: 04-22-2025 DIABETES SCREEN DIABETES SCREEN [facility] Start: 04-22-2025 Diabetes Screening Diabetes Screenin [facility] Start: 04-22-2025 End: 04-22-2025 Patient encounter procedure 04/22/2025 2:00 PM EST Office Visit [facility], A Department of [address] [place] [phone] Rachele Lopez MD [address] [place] [address], [facility] [address] [place] [address] [facility], A Department of [facility] Start: 04-10-2025 End: 04-10-2025 Patient encounter procedure 04/10/2025 12:30 PM EDT Appointment [facility] - MRI [address] [place] [address] Gaurang Corrales MD [address] [place] [address] [address] [place], [place] [id number] [facility] - MRI Start: 03-27-2025 End: 03-27-2025 Patient encounter procedure 03/27/2025 1:15 PM EDT Procedure visit [facility] On [address] [phone] [facility] On [facility] Start: 02-18-2025 Influenza vaccination Influenza Vacc ine [facility] Start: 01-17-2025 End: 07-20-2025 MR Brain WO and W contrast IV MR brain with and without contrast Imaging Routine Dementia with behavioral disturbance ([facility]) Expected: 01/17/2025 (Approximate), Expires: 07/20/2025 [facility] Work Phone: Comment on above: Expected: 01/17/2025 (Approximate), Expires: 07/20/2025 Start: 12-18-2024 End: 12-18-2024 Patient encounter procedure 12/18/2024 2:10 PM EDT Office Visit [facility] [address] [place] [phone] Beto Villar MD [address] [place] [address] [address] [place] [address] [facility] Start: 12-18-2024 End: 12-18-2025 MR Brain WO and W contrast IV MR brain with and without contrast Imaging Routine Dementia with behavioral disturbance (CMS-HCC) Expected: 12/18/2024, Expires: 12/18/2025 [facility] Work Phone: Comment on above: Expected: 12/18/2024 , Expires: 12/18/2025 Start: 11-06-2024 End: 11-06-2024 Patient encounter procedure 11/06/2024 1:45 PM EDT Office Visit [facility] [address] [phone] Jaz Art PA-C [address] [place] [address] [facility] Start: 10-31-2024 End: 10-31-2024 Patient encounter procedure 10/31/2024 4:30 PM EDT Office Visit [facility] [address] [address] Isak Elliott MD [address] [place] [address] 3mo f/u [facility] Comment on above: 3mo f/u Start: 08-15-2024 End: 08-15-2024 ambulatory 08/15/2024 9:30 AM EST OT/PT/Speech Visit [facility] [address] [place] [address] Shweta Hi, [facility] PHYSICAL THERAPY ASSISTANT [address] [place], [place] [phone] History of traumatic brain injury [Z87.820] [facility] Comment on above: History of traumatic brain injury [Z87.820] Start: 07-30-2024 End: 07-30-2024 Patient encounter procedure 07/30/2024 12:40 PM EST Office Visit [facility] [address] [place] [address] Fidelina Fisher, HEAD SULFIDE OPERATOR.WIRE BRUSH MAKER [address] [place] [address] TBI (Traumatic Brain Injury) [facility] Comment on above: TBI (Traumatic Brain Injury) Start: 02-19-2024 Covid-19 Vaccine () Covid-19 Vaccine () [facility] Start: 02-19-2024 COVID-19 Vaccine () COVID-19 Vaccine () [facility] Start: 02-19-2024 Influenza vaccination C [facility] Start: 06-20-2023 Behavioral Health Screening Behavioral Health Screening [facility] Start: 02-18-2023 Covid-19 Vaccine () Covid-19 Vaccine () [facility] Start: 02-18-2023 Influenza vaccination C [facility] Start: 10-12-2022 End: 12-12-2022 ADMARK PHOSPHO-TAU TOTAL-TAU/AB42 CSF [facility] Work Phone: Comment on above: Expected: 10/12/2022 , Expires: 12/12/2022 Start: 10-12-2022 End: 12-12-2022 Reagin Ab [Titer] in Cerebral spinal fluid by VDRL [facility] Work Phone: Comment on above: Expected: 10/12/2022 , Expires: 12/12/2022 Start: 08-11-2022 End: 10-11-2022 Cell count panel - Cerebral spinal fluid CSF CELL COUNT Lab Routine Memory loss Expected: 08/11/2022, Expires: 10/11/2022 [facility] Work Phone: Comment on above: Expected: 08/11/2022 , Expires: 10/11/2022 Start: 08-11-2022 End: 10-11-2022 Glucose [Mass/volume] in Cerebral spinal fluid GLUCOSE CSF Lab Routine Memory loss Expected: 08/11/2022, Expires: 10/11/2022 [facility] Work Phone: Comment on above: Expected: 08/11/2022 , Expires: 10/11/2022 Start: 08-11-2022 End: 10-11-2022 MISC SEND OUT TST 1 MISC SEND OUT TST 1 Lab Routine Memory loss Expected: 08/11/2022, Expires: 10/11/2022 [facility] Work Phone: Comment on above: Expected: 08/11/2022 , Expires: 10/11/2022 Start: 08-11-2022 End: 10-11-2022 Protein [Mass/volume] in Cerebral spinal fluid PROTEIN CSF Lab Routine Memory loss Expected: 08/11/2022, Expires: 10/11/2022 [facility] Work Phone: Comment on above: Expected: 08/11/2022 , Expires: 10/11/2022 Start: 08-11-2022 End: 10-11-2022 Reagin Ab [Titer] in Cerebral spinal fluid by VDRL VDRL CSF Lab Routine Memory loss Expected: 08/11/2022, Expires: 10/11/2022 [facility] Work Phone: Comment on above: Expected: 08/11/2022 , Expires: 10/11/2022 Start: 08-11-2022 End: 10-11-2022 TOURTELLOTTE BLOOD TOURTELLOTTE BLOOD Lab Routine Memory loss Expected: 08/11/2022, Expires: 10/11/2022 [facility] Work Phone: Comment on above: Expected: 08/11/2022 , Expires: 10/11/2022 Start: 06-20-2022 DEPRESSION ASSESSMENT DEPRESSION ASS [facility] Start: 02-18-2022 Influenza vaccination INFLUENZA (#1) [facility] Start: 06-20-2021 [facility] Start: 05-29-2021 COVID-19 VACCINE (3 - Booster for Pfizer series) COVID-19 VACCINE (3 - Booster for Pfizer series) [facility] Start: 05-29-2021 COVID-19 VACCINE (3 - Pfizer series) COVID-19 VACCINE (3 - Pfizer series) [facility] Start: 2020 PROSTATE CANCER SCREENING DISCUSSION PROSTATE CANCER SCREENING DISCUSSION [facility] Start: 2020 Prostate specific antigen measurement Prostate Cancer Screening Discussion [facility] Start: 2015 Administration of varicella zoster vaccine Zoster (Shingles) Vaccine (1 of 2) [facility] Start: 2015 Pneumococcal Vaccine : 50+ (1 of 1 - PCV) Pneumococcal Vaccine: 50+ (1 of 1 - PCV) [facility] Start: 2015 SHINGRIX VACCINE (1 of 2) SHINGRIX VACCINE (1 of 2) [facility] Start: 2010 COLOGUARD (FIT-DNA) COLOGUARD (FIT-D NA) [facility] Start: 2010 Colonoscopy COLONOSCOPY [facility] Start: 2010 COLORECTAL CANCER SCREENING COLORECTAL CANCER SCREENING [facility] Start: [address] COLONOGRAPHY [facility] Start: 2010 DIABETES SCREEN DIABETES SCREEN [facility] Start: 2010 FECAL OCCULT BLOOD FECAL OCCULT BLOO D [facility] Start: 2010 Screening for malign ant neoplasm of colon [facility] Start: 2010 SIGMOIDOSCOPY SIGMOIDOSCOPY [facility] Start: 2000 Lipid 1996 panel - S flakita or Plasma Lipid Screening [facility] Start: 2000 Lipid panel Lipid Screening [facility] Start: 2000 LIPID SCREEN LIPID SCREEN [facility] Start: 1984 Hepatitis B Vaccine (1 of 3 - 19+ 3-dose series) Hepatitis B Vaccine (1 of 3 - 19+ 3-dose series) [facility] Start: 1984 Urine microalbumin profile [facility] Start: 1983 Adult BMI Follow Up Plan Adult BMI Follow Up Plan [facility] Start: 1983 Anxiety Screening Anxiety Screening [facility] Start: 1983 Depression Screening Depression Scre ening [facility] Start: 1983 HEPATITIS C SCREENING HEPATITIS C SC REENING [facility] Start: 1983 Hepatitis C screening Hepatitis C Sc raquel [facility] Start: 1983 HIV SCREENING HIV SCREENING [facility] Start: 1977 Depression Screening Depression Scre ening [place] [facility] Start: 1965 HEPATITIS B (1 of 3 - 3-dose series) HEPATITIS B (1 of 3 - 3-dose series) [facility] Start: 1965 Hepatitis B Vaccine (1 of 3 - 3-dose series) Hepatitis B Vaccine (1 of 3 - 3-dose series) [facility] End: 07-06-2024 ECG 12 lead ECG 12 lead ECG Routine Once for 1 Occurrences starting 07/06/2024 until 07/06/2024 [place] [facility] Comment on above: Once for 1 Occurrenc es starting 07/06/2024 until 07/06/2024 End: 10-15-2025 EEG EEG Neurology Routine Dementia with behavioral disturbance (CMS-HCC) Episode of confusion 1 Occurrences starting 10/15/2024 until 10/15/2025 [employer] Work Phone: Comment on above: 1 Occurrences starti ng 10/15/2024 until 10/15/2025 End: 08-11-2023 LUMBAR PUNCTURE/YESICA LUMBAR PUNCTURE/YESICA NEUROLOGY Routine Memory loss 1 Occurrences starting 08/11/2022 until 08/11/2023 [facility] Work Phone: Comment on above: 1 Occurrences starti ng 08/11/2022 until 08/11/2023 End: 10-13-2023 LUMBAR PUNCTURE/YESICA LUMBAR PUNCTURE/[place] NEUROLOGY Routine Memory loss 1 Occurrences starting 10/12/2022 until 10/13/2023 [facility] Work Phone: Comment on above: 1 Occurrences starti ng 10/12/2022 until 10/13/2023 Oxygen Therapy - Maintain SpO2: 90%; *INSURANCE PLAN SPECIALIST Guidelines for O2: Yes; Document: \[employer]Tapestry.RVX\epi c\EPIC_Reference\Orders\ Respiratory Care Guidelines\CPG Oxygen 2022.pdf Oxygen Therapy - Maintain SpO2: 90%; *INSURANCE PLAN SPECIALIST Guidelines for O2: Yes; Document: \[employer].RVX\ep ic\EPIC_Reference\Order s\Respiratory Care Guidelines\CPG Oxygen 2022.pdf Respiratory Care Routine As Needed until discontinued starting 07/06/2024 [facility] Comment on above: As Needed until disc ontinued starting 07/06/2024 End: 01-01-2024 PAP TITRATION PSG (CPAP, BIPAP, ASV) PAP TITRATION PSG (CPAP, BIPAP, ASV) Procedures Routine Obstructive sleep apnea 1 Occurrences starting 12/02/2022 until 01/01/2024 [facility] Work Phone: Comment on above: 1 Occurrences starti ng 12/02/2022 until 01/01/2024 End: 07-09-2024 Prion Markers, Creutzfeldt-Osei Disease(14-3-3 Protein Tau, Total), CSF [employer] Work Phone: Comment on above: Once for 1 Occurrenc es starting 07/09/2024 until 07/09/2024 End: 07-06-2024 Pulse oximetry, spot On current oxygen flow Pulse oximetry, spot On current oxygen flow Respiratory Care Routine Once for 1 Occurrences starting 07/06/2024 until 07/06/2024 [employer] Work Phone: Comment on above: Once for 1 Occurrenc es starting 07/06/2024 until 07/06/2024 Removal impacted cer umen irrigation/lvg unilat AMBULATORY EAR LAVAGE/IRRIGATION Procedures Routine Bilateral impacted cerumen Ordered: 04/22/2022 [facility] Work Phone: Comment on above: Ordered: 04/22/2022 TOURTELLOTTE CSF TOURTELLOTTE CS F Lab Routine Memory loss Ordered: 08/11/2022 [facility] Work Phone: Comment on above: Ordered: 08/11/2022 [facility] Immunizations Immunization Date Immunization Notes Care Provider Fa titoty 11-24-2019 tetanus toxoid, redu zenia diphtheria toxoid, and acellular pertussis vaccine, adsorbed Kelly [facility] Payers Date Payer Category Payer Medicare DEVOTED MEDICARE DEVOTED HEALTH [place] PPO [id number] 2024-Present [phone] [address] [place] [id number] PPO [id number] 2024 Medicare HMO [id number] 2024 Private Health Insurance DEVOTED MEDICARE [id number] 2024 Medicare [id number] 2024 Self-pay 2024 Unknown [id number] 2024 Unknown [id number] 2021 Unknown [id number] 1.13.159.2. [id number] 1965 Unknown [id number] 2.16.840.1.789335.3.579.2. 647 1965 Unknown [id number] 2.16.840.1.595225.3.579.2. 647 1965 Unknown [id number] 2.16.840.1.595226.3.579.2. 593 1965 Unknown [id number] 2.16.840.1.858950.3.579.2. 593 1965 Unknown [id number] 2.16.840.1.276553.3.579.2. 593 1965 Unknown [id number] 2.16.840.1.718535.3.579.2. 128 1965 Unknown [id number] 2.16.840.1.461931.3.579.2. 727 1965 Unknown [id number] 2.16.840.1.246454.3.579.2. 727 1965 Unknown [id number] 2.16.840.1.080327.3.579.2. 727 1965 Unknown [id number] 2.16.840.1.889561.3.579.2. 128 1965 Unknown [id number] 2.16.840.1.849767.3.579.2. 1285 1965 Unknown [id number] 2.16840.1.874644.3.579.2. 1285 1965 Unknown [id number] 2.16840.1.528775.3.579.2. 1285 1965 Unknown [id number] 2.16840.1.130536.3.579.2. 1285 1965 Unknown [id number] 2.16.840.1.510338.3.579.2. 128 1965 Unknown [id number] 2.16840.1.603826.3.579.2. 128 1965 Unknown [id number] 2.16.840.1.141540.3.579.2. 128 1965 Unknown [id number] 2.16.840.1.700178.3.579.2. 1285 1965 Unknown [id number] 2.16.840.1.668976.3.579.2. 1285 1965 Unknown [id number] 2.16.840.1.042307.3.579.2. 1285 1965 Unknown [id number] 2.16.840.1.553262.3.579.2. 1286 1965 Unknown [id number] 2.16.840.1.181129.3.579.2. 1286 1965 Unknown [id number] 2.16.840.1.204050.3.579.2. [facility] Unknown [id number] 2.16.840.1.648679.3.579.2. [facility] 1965 Unknown [id number] 2.16.840.1.904293.3.579.2. [facility] 1965 Unknown [id number] 2.16.840.1.153118.3.579.2. [facility] 1965 Unknown [id number] 2.16.840.1.174883.3.579.2. [facility] 1959 Unknown [id number] 1959 Unknown [id number] Unknown [id number] 2.16.840.1.937608.3.579.2. 531 Unknown [id number] 2.16.840.1.077751.3.579.2. 531 Social History Date Type Detail Facility Start: 04-22-2022 End: 11-06-2024 Tobacco smoking status NHIS Never smoked tobacco [facility] Start: 04-22-2022 End: 11-06-2024 Tobacco use and exposure Smokeless tobacco non-user [facility] Start: 04-22-2022 End: 07-30-2024 Alcohol intake Ex-drinker (finding) [facility] Start: 1965 Sex Assigned At Not on file [facility] Start: 04-12-2022 End: 05-07-2022 Exposure to SARS-CoV-2 (event) Not sure [facility] Start: 07-31-2020 End: 10-12-2022 History of Social function [facility] Start: 07-31-2020 End: 10-12-2022 Tobacco use panel [facility] Adult Depression Screening Assessment 2 [facility] Start: 1965 Sex Assigned At Male F [facility] Start: 07-11-2024 End: 11-06-2024 Alcoholic beverage intake Current non-drinker of alcohol (finding) [facility] Start: 01-23-2015 Sex Male (finding) [facility] Has the electric, [employer] s, oil, or water company threatened to shut off services in your home in past 12Mo No [facility] Medical Equipment Procedure Code Equipment Code [...] Assessment Result Facility 06-21-2024 Functional Status No [facility] 01-11-2024 Functional Status N/A [facility] Mental Status [...] Facility 02-15-2025 Note Attestation signed by Bailey Lyles MD at 02/15/2025 2:05 PM By using [...] Patient Name: Estella Jeffery MRN / CSN: [id number] Date of / Age: 1 1965 59 y.o. 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 Care Team Encounter Provider: Bailey Lyles MD Referring Physician (if known): No ref. [...] history of Alzheimer's dementia presenting to the [facility] for a psychiatric evaluation. [...] Seroquel - effect (more content not included)... [facility] 12-18-2024 Miscellaneous Notes Kari calls stating that Estella needed to be sedated for his last MRI due to anxiety. Discussed options and ultimately, decision for MRI with anesthesia is to be ordered due to his issues. documented in this encounter [facility] 12-18-2024 Telephone encounter Note Kari calls stating that Estella needed to be sedated for his last MRI due to anxiety. Discussed options and ultimately, decision for MRI with anesthesia is to be ordered due to his issues. [facility] 11-06-2024 History of Present illness Narrative Estella Jeffery Date of visit: 11/06/2024 Date of : 1965 Age: 59 y.o. Patient Active Problem List Diagnosis Laceration of left ulnar artery Dementia with behavioral disturbance ([facility]) Altered mental status Status post colostomy, follow-up exam ([facility]) Bradycardia Orthostatic hypotension Allergies Allergen Reactions Ativan [...] SCHED W/ History of Present Illness Estella Gerald Jeffery patient is a 59-year-old male with [...] Performed by Skyler Bowen MD at [facility] COLONOSCOPY JANICE 3YEARS AGO COLOSTOMY CLOSURE PUNCTURE LUMBAR N/A 07/10/2024 Performed by Zach Nails MD at [facility] Family History Problem Relation Age of [...] of early-onset Alzheimer's dementia underwent testing at [facility] Patient is stable from a cardiovascular standpoint he may follow up in about 9 months or sooner as needed. TODAYS ORDERS No orders of the defined types were placed in this encounter. FOLLOW UP Return in about 1 year (around 11/06/2025). PCP: JAE LOPEZ MD Referring Physician: Jae Lopez MD [address] [place] [address] Jaz Art PA-C 11/06/24 1511 documented in this encounter [facility] 11-06-2024 Instructions Jaz Art PA-C - 11/06/2024 [...] in 9 months documented in this encounter [facility] 10-23-2024 Miscellaneous Notes Contract: [facility] [phone] [facility] Erik re hypotension room B646 tx germaine ---I sent a secure chat message to Shayla Haynes documented in this encounter [facility] 10-23-2024 Telephone encounter Note Contract: [facility] [phone] [facility] Erik re hypotension room B646 tx germaine ---I sent a secure chat message to Shayla Haynes [facility] 10-15-2024 History of Present illness Narrative Chief [...] had previously been seeing neurology at the [facility]. His last clinic visit related to this was through a telemedicine encounter on 11/17/[address] Agustina Plascencia. Based on that note Mr. Jeffery noticed more significant memory issues around 2021. 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 Mr. Jacobs indicates they did not follow up with neurology again. Mr. Jeffery was admitted to the [facility] on 07/20/2024 - 07/20/2024 after experiencing [...] and cranio-cervical junction. Flow voids documented in [place] of [place] and dural venous sinuses. No [...] hemoglobin 13.9, hematocrit 41.8, platelets 180 From [facility] note dated 11/17/2022 : MRI 2021: [...] left ulnar artery Dementia with behavioral disturbance ([facility]) Altered mental status Status post colostomy, follow-up exam ([facility] Past Surgical History: Procedure Laterality Date ARM EXPLORATION WITH REPAIR LACERATED ULNAR ARTERY Left 11/24/2019 Performed by Skyler Bowen MD at [facility] COLONOSCOPY JANICE 3YEARS AGO COLOSTOMY CLOSURE PUNCTURE LUMBAR N/A 07/10/2024 Performed by Zach Nails MD at [facility] Family History Problem Relation Age of [...] that he can be managed at home. information services assistant was offered but they would like to [...] for this visit: Dementia with behavioral disturbance ([facility]) - Ambulatory referral to Psychiatry ([facility]); Future - EEG; Future Colloid cyst of third ventricle ([facility]) - [facility] [place] [place]; Future Episode of confusion - EEG; Future documented in this encounter [facility] 07-30-2024 Note HNO ID: [id number] Author: FIDELINA FISHER APRN.WIRE BRUSH MAKER Service: ? Author Type: Nurse Practitioner Type: [...] in May 2024. He was evaluated at [facility] following the fall. Per he had an episode with agitation. Per family he was not displaying agitation prior to the fall. Family notes prior to his fall he was driving and independent with his care. He is now requiring a lot of assistance with care. Subjective: Patient presents with: Consult Family notes concerns with coordination. He has been following with [facility] for his dementia. Per his family his dementia symptoms seems to have worsen following his fall. He continues to have agitation surrounding doctors appointments, he associates doctors with [facility]. Per family he had a rough admission with jalen at [facility] in [place]. He was started on Seroquel at bedtime. [...] Cognition: - has underline dementia. Following with [facility]. Sleep: - He has been having issues [...] and cranio-cervical junction. Flow voids documented in [place] and dural venous sinuses. No [...] jaundice UE SAB EF EE WE WF Home Housekeeper R 5/5 5/5 5/5 5/5 5/5 5/5 [...] in May 2024. He was evaluated at [facility] following the fall. He arrives today with his sister and for management following his TBI. Per and sister he has had significant change with his cognition since the f (more content not included)... [facility] 07-30-2024 History of Present illness Narrative July 30, 2024 Reason for visit: Patient presents with: Consult Previous Visit: No previous PM&R. HPI (brief) Estella Jeffery is a 59 year old male. PMHx of TBI and HDL. He had an unwitnessed fall down the stairs. Per family he had a fall in May 2024. He was evaluated at [facility] following the fall. Per he had an [...] surrounding doctors appointments, he associates doctors with [facility]. Per family he had a rough admission with jalen at [facility] in [place]. He was started on Seroquel at bedtime. [...] Cognition: - has underline dementia. Following with [facility]. Sleep: - He has been having issues [...] and cranio-cervical junction. Flow voids documented in [place] and dural venous sinuses. No [...] jaundice UE SAB EF EE WE WF Home Housekeeper R / 5/5 5/5 5/5 5/5 5/5 L 5/5 5/5 5/5 5/5 5/5 5/ LE HF KF KE PF DF R /10 22/ 5/ 5/ 5/ L / 5/5 5/5 5/5 5/ IMPRESSION: Estella Jeffery is a 59 year old male. PMHx of TBI and HDL. He had an unwitnessed fall down the stairs. Per family he had a fall in May 2024. He was evaluated at [facility] following the fall. He arrives today with [...] 294.20, ICD10: F03.90 - Will get updated [place] and scan in records. - CONSULT TO [...] which included preparing to see the patient, [id number] patient care, completing clinical documentation, performing a medically appropriate examination, counseling and educating the patient/family/caregiver, ordering medications, tests, or procedures and communicating results to the patient/family/caregiver. Fidelina Fisher APRN.[facility] documented in this encounter [facility] 07-22-2024 Nurse Note AVS discussed with patient and family, no further questions about discharge. No further needs identified. Patient taken downstairs by wheelchair to be driven home by . [facility] 07-22-2024 Plan of care note Problem: Safety [...] at the bedside 7. Instruct patient/ patient sales training representative about use of safety devices 8. Include patient/ patient sales training representative in decisions related to safety Outcome: Adequate for Discharge Problem: Knowledge Deficit Goal: Patient/patient sales training representative demonstrates understanding of disease process, treatment [...] Score of =/> 25 or indicated by [facility] Assessment Goal: Patient should be free from fall Description: Interventions: 1. Maxbass to environment 2. Hourly rounds addressing the [...] non-skid footwear 11. Teach patient and patient sales training representative to maintain environment for safety and [...] (cane, walker) within reach 19. Request patient sales training representative bring adaptive equipment/mobility aids from home or obtain and provide as needed 20. Consult pharmacy regarding effects of med's affecting mobility, cognition, and alternatives 21. Obtain physician order for PT if risk factors associated with mobility are present 22. Obtain physician order for OT as appropriate 23. Utilize diversional activities 24. Educate patient and patient sales training representative how to maintain a safe environment during visitation times (notify nurse prior to leaving bedside) 25. Consider appropriateness of medical or non-medical officer psychiatry 26. Set up voiding schedule as appropriate (every 2 hours) Outcome: Adequate for Discharge [facility] 07-22-2024 Miscellaneous Notes Problem: Safety Goal: Patient [...] at the bedside 7. Instruct patient/ patient sales training representative about use of safety devices 8. Include patient/ patient sales training representative in decisions related to safety Outcome: Adequate for Discharge Problem: Knowledge Deficit Goal: Patient/patient sales training representative demonstrates understanding of disease process, treatment [...] Score of =/> 25 or indicated by [facility] Assessment Goal: Patient should be free from fall Description: Interventions: 1. Maxbass to environment 2. Hourly rounds addressing the [...] non-skid footwear 11. Teach patient and patient sales training representative to maintain environment for safety and [...] (cane, walker) within reach 19. Request patient sales training representative bring adaptive equipment/mobility aids from home or obtain and provide as needed 20. Consult pharmacy regarding effects of med's affecting mobility, cognition, and alternatives 21. Obtain physician order for PT if risk factors associated with mobility are present 22. Obtain physician order for OT as appropriate 23. Utilize diversional activities 24. Educate patient and patient sales training representative how to maintain a safe environment during visitation times (notify nurse prior to leaving bedside) 25. Consider appropriateness of medical or non-medical officer psychiatry 26. Set up voiding schedule as appropriate [...] at the bedside 7. Instruct patient/ patient sales training representative about use of safety devices 8. Include patient/ patient sales training representative in decisions related to safety Outcome: Progressing Note: Evaluation of progress towards goal: pt remains free from injury. Family at bedside. Problem: Knowledge Deficit Goal: Patient/patient sales training representative demonstrates understanding of disease process, treatment [...] Score of =/> 25 or indicated by [facility] Assessment Goal: Patient should be free from fall Description: Interventions: 1. Maxbass to environment 2. Hourly rounds addressing the [...] non-skid footwear 11. Teach patient and patient sales training representative to maintain environment for safety and [...] (cane, walker) within reach 19. Request patient sales training representative bring adaptive equipment/mobility aids from home or obtain and provide as needed 20. Consult pharmacy regarding effects of med's affecting mobility, cognition, and alternatives 21. Obtain physician order for PT if risk factors associated with mobility are present 22. Obtain physician order for OT as appropriate 23. Utilize diversional activities 24. Educate patient and patient sales training representative how to maintain a safe environment during visitation times (notify nurse prior to leaving bedside) 25. Consider appropriateness of medical or non-medical officer psychiatry 26. Set up voiding schedule as appropriate (every 2 hours) Outcome: Progressing Note: Evaluation of progress towards goal: pt remains free from falls. Fall precautions in place and family at bedside Problem: Moderate - High Risk Fall Score Description: Gallegos Fall Score of =/> 25 or indicated by [facility] Assessment Goal: Patient should be free from fall Description: Interventions: 1. Maxbass to environment 2. Hourly rounds addressing the [...] non-skid footwear 11. Teach patient and patient sales training representative to maintain environment for safety and [...] (cane, walker) within reach 19. Request patient sales training representative bring adaptive equipment/mobility aids from home or obtain and provide as needed 20. Consult pharmacy regarding effects of med's affecting mobility, cognition, and alternatives 21. Obtain physician order for PT if risk factors associated with mobility are present 22. Obtain physician order for OT as appropriate 23. Utilize diversional activities 24. Educate patient and patient sales training representative how to maintain a safe environment during visitation times (notify nurse prior to leaving bedside) 25. Consider appropriateness of medical or non-medical officer psychiatry 26. Set up voiding schedule as appropriate (every 2 hours) Outcome: Progressing Note: Evaluation of progress towards goal: pt remains free from falls. Fall precautions in place and family at bedside DISCHARGE PLANNING NOTE Patient Support Specialist spoke with RN KAY Graf and with wire charger Mylena about current situation regarding appeal decision and DC plan to home with outpatient services. Patient Support Specialist placed a call to the who was in the patient's room due to the questions she had re: the discharge plan. Patient Support Specialist spoke with , Kari on 07/21/24 at 1325. Patient Support Specialist reviewed Eduardo's DC Appeal Determination Notification with the who confirmed that she had received a voicemail from [facility] this morning. Patient Support Specialist explained that Eduardo had agreed with the termination of hospital services after having reviewed the uploaded clinical documents from this hospitalization that script writer had sent to them yesterday. expressed verbal understanding to script writer of Eduardo's decision. Patient Support Specialist explained that patient's financial liability would begin at Noon on 07/22/24 and offered our care navigation assistance with obtaining transportation to home. had questions about why referrals were not made to half-way facilities that family had now chosen, [facility] and [facility] ([facility]). Patient Support Specialist explained to the that the patient did not meet the clinical criteria this time for a half-way/rehab facility level of care and reminded her that a discussion about this took place this past week/yesterday with the treatment team. explained that she never agreed to take her home and her and her family now want SNF placement. Patient Support Specialist continued to explain to the process of [...] prior to bringing him to the hospital. Patient Support Specialist offered supportive listening to the and also offered for her to connect with patient's PCP, Dr. Lopez after she gets her home for resources. Patient Support Specialist also discussed the outpatient TBI clinic appointment that was being discussed yesterday and that information would be included on patient's after visit summary. Patient Support Specialist explained that if was not going to make arrangements to take patient home by noon on 07/22, that patient's financial responsibility of $2640.00 per day would begin. expressed verbal understanding to script writer. Patient Support Specialist emailed financial responsibility form with instruction to wire chargerCm (and cce'd today's RN Lesia Felton for awareness) for bedside delivery today. is aware of pending paper copy delivery of this form. - NELLI GLEZ YOUTH CARE WORKER CARE NAVIGATION 07/21/24 2:11 PM DISCHARGE PLANNING NOTE We have received DC Appeal Determination Notification from Daryl and Daryl has agreed with the termination of services. Beneficiary liability begins 07.22.2024 by Noon. Beneficiary and/or beneficiary sales training representative were to be notified of determination via phone call. Eduardo determination notification rec'd at [phone] and letter rec'd [phone] were received by script writer via fax. Patient Support Specialist uploaded documents to document list. Documentation updated. Patient Support Specialist received forwarded voice mail 07/21/24 at 1032 from Eduardo Duran's Immediate Advocacy Department , who had left message on Care Navigation Department voice mail at 0038 on 07/20/24, stating he was representing patient's family who had called Eduardo asking 1) why denial reason wasn't given re: transfer to another care facility and 2) if the preferred facility by family was able to accept. Reference Case # given from Roger [id number]. Patient Support Specialist attempted to call Roger back on 07/21/24 at 1214 and script writer rec'd auto message from Eduardo which stated only live phone calls with Eduardo are Tuesday thru Tuesday. Patient Support Specialist left voicemail citing reference case # [id number]. Patient Support Specialist stated reason for return phone call and requested call back from Roger. - NELLI GLEZ YOUTH CARE WORKER CARE NAVIGATION 07/21/24 12:37 PM Problem: Safety [...] at the bedside 7. Instruct patient/ patient sales training representative about use of safety devices 8. Include patient/ patient sales training representative in decisions related to safety Outcome: Progressing Note: Evaluation of progress towards goal: Pain will be adequately controlled to allow for rest and adl's Problem: Knowledge Deficit Goal: Patient/patient sales training representative demonstrates understanding of disease process, treatment [...] Score of =/> 25 or indicated by [facility] Assessment Goal: Patient should be free from fall Description: Interventions: 1. Maxbass to environment 2. Hourly rounds addressing the [...] non-skid footwear 11. Teach patient and patient sales training representative to maintain environment for safety and [...] (cane, walker) within reach 19. Request patient sales training representative bring adaptive equipment/mobility aids from home or obtain and provide as needed 20. Consult pharmacy regarding effects of med's affecting mobility, cognition, and alternatives 21. Obtain physician order for PT if risk factors associated with mobility are present 22. Obtain physician order for OT as appropriate 23. Utilize diversional activities 24. Educate patient and patient sales training representative how to maintain a safe environment during visitation times (notify nurse prior to leaving bedside) 25. Consider appropriateness of medical or non-medical officer psychiatry 26. Set up voiding schedule as appropriate [...] at the bedside 7. Instruct patient/ patient sales training representative about use of safety devices 8. Include patient/ patient sales training representative in decisions related to safety Outcome: Progressing Note: Evaluation of progress towards goal: pt remains free from injury Problem: Knowledge Deficit Goal: Patient/patient sales training representative demonstrates understanding of disease process, treatment [...] Score of =/> 25 or indicated by [facility] Assessment Goal: Patient should be free from fall Description: Interventions: 1. Maxbass to environment 2. Hourly rounds addressing the [...] non-skid footwear 11. Teach patient and patient sales training representative to maintain environment for safety and [...] (cane, walker) within reach 19. Request patient sales training representative bring adaptive equipment/mobility aids from home or obtain and provide as needed 20. Consult pharmacy regarding effects of med's affecting mobility, cognition, and alternatives 21. Obtain physician order for PT if risk factors associated with mobility are present 22. Obtain physician order for OT as appropriate 23. Utilize diversional activities 24. Educate patient and patient sales training representative how to maintain a safe environment during visitation times (notify nurse prior to leaving bedside) 25. Consider appropriateness of medical or non-medical officer psychiatry 26. Set up voiding schedule as appropriate (every 2 hours) Outcome: Progressing Note: Evaluation of progress towards goal: fall precautions in place and pt remains free from falls DISCHARGE PLANNING NOTE Patient's family has appealed his discharge & we have received notification from [facility] that a DC appeal has been called in. The chart, DND form, & IMM have been successfully uploaded by script writer to the [facility] and successfully received by [facility]. [facility] will notify the of the patient of the appeal determination. Patient Support Specialist phone called patient's & read the DND notice to her. Paper copy of the DND notice to be delivered to the patient's bedside. Patient Support Specialist informed to anticipate phone call from [facility] re: determination of DC Appeal & encouraged wifeto answer the phone when [facility] calls. expressed verbal understanding of DND and the DC appeal process. - NELLI GLEZ YOUTH CARE WORKER CARE NAVIGATION 07/20/24 5:13 PM Problem: Safety [...] at the bedside 7. Instruct patient/ patient sales training representative about use of safety devices 8. Include patient/ patient sales training representative in decisions related to safety Outcome: Progressing Note: Evaluation of progress towards goal: Patient remains injury free at this time. Problem: Knowledge Deficit Goal: Patient/patient sales training representative demonstrates understanding of disease process, treatment [...] Score of =/> 25 or indicated by [facility] Assessment Goal: Patient should be free from fall Description: Interventions: 1. Maxbass to environment 2. Hourly rounds addressing the [...] non-skid footwear 11. Teach patient and patient sales training representative to maintain environment for safety and [...] (cane, walker) within reach 19. Request patient sales training representative bring adaptive equipment/mobility aids from home or obtain and provide as needed 20. Consult pharmacy regarding effects of med's affecting mobility, cognition, and alternatives 21. Obtain physician order for PT if risk factors associated with mobility are present 22. Obtain physician order for OT as appropriate 23. Utilize diversional activities 24. Educate patient and patient sales training representative how to maintain a safe environment during visitation times (notify nurse prior to leaving bedside) 25. Consider appropriateness of medical or non-medical officer psychiatry 26. Set up voiding schedule as appropriate (every 2 hours) Outcome: Progressing Note: Evaluation of progress towards goal: Patient remains free from falls at this time. DISCHARGE PLANNING NOTE 07/30 at 12:40 Hospital follow up with Fidelina Fisher CNP [facility] [place] [id number] [place] [address] Confirmed with Taylor at [facility] she did receive the updated notes (neuro, PMR, PT/OT) that were faxed and uploaded to [facility]. She is almost finishing writing it up for physician review and will call us with their determination by 10am. 9:31 am Received call from Taylor at [facility] IPR-she reviewed updated notes with medical dermatologist and they remain unable to accept after our 3rd request for review. She said he is doing too well functionally, does not need OT/PT services. She said after discussion with medical dermatologist their facility would be of no benefit to the patient. This information was communicated to interdisciplinary team via [employer] chat DISCHARGE PLANNING NOTE Sent face sheet to [facility] for hospital transfer via secure fax to # [phone] DISCHARGE PLANNING NOTE Discharge plan- awaiting responses from [facility] if they can accept. Tasked [facility] to send neuro note from yesterday to them again. Tasked [facility] to fax his face sheet to [facility] per physician request since she is calling them about a hospital to hospital transfer per families request. Leadership team aware. - NANCY PARRISH 07/20/24 8:19 AM Discussed patient and d/c planning with leadership team. Everyone in agreement with d/c today since per physician [facility] can not accept as a hospital transfer and [facility] has denied as well. Physician and this script writer spoke with patient, and sister that is present re: d/c today and that patient will be going home with outpatient ST and an appointment has been made for a TBI clinic for follow up. Provided IMM to and explained. Leadership aware. - NANCY PARRISH 07/20/24 11:29 AM DISCHARGE PLANNING NOTE Neuro Note sent to [facility] (P# [phone] ; F# [phone]) in careport and via [employer]. Problem: Safety Goal: Patient will be injury free during hospitalization Description: INTERVENTIONS: 1. Assess patient's risk for falls and implement fall prevention plan of care per policy 2. Provide and maintain a safe environment 3. Proper use of double Identifiers 4. Medication administration using the 5 rights 5. Hand hygiene 6. Specimens are labeled at the bedside 7. Instruct patient/ patient sales training representative about use of safety devices 8. Include patient/ patient sales training representative in decisions related to safety Outcome: Progressing Note: Evaluation of progress towards goal: Pt remains free from injury and significant other at bedside Problem: Knowledge Deficit Goal: Patient/patient sales training representative demonstrates understanding of disease process, treatment [...] Score of =/> 25 or indicated by [facility] Assessment Goal: Patient should be free from fall Description: Interventions: 1. Maxbass to environment 2. Hourly rounds addressing the [...] non-skid footwear 11. Teach patient and patient sales training representative to maintain environment for safety and [...] (cane, walker) within reach 19. Request patient sales training representative bring adaptive equipment/mobility aids from home or obtain and provide as needed 20. Consult pharmacy regarding effects of med's affecting mobility, cognition, and alternatives 21. Obtain physician order for PT if risk factors associated with mobility are present 22. Obtain physician order for OT as appropriate 23. Utilize diversional activities 24. Educate patient and patient sales training representative how to maintain a safe environment during visitation times (notify nurse prior to leaving bedside) 25. Consider appropriateness of medical or non-medical officer psychiatry 26. Set up voiding schedule as appropriate (every 2 hours) Outcome: Progressing Note: Evaluation of progress towards goal: pt remains free from falls and fall precautions are in place DISCHARGE PLANNING NOTE Updates to [facility] (P# [phone] ; F# [phone]) Occupational Therapy Treatment Discharge Recommendations OT Recommendations [...] therapy per MARCI Rothman Equipment: gait belt Telemetry/Cash Posting Representative: No Oxygen Used: room air Other: fall [...] up w/mother's name; educated sister on playing [employer] songs from pt's younger years, to encourage [...] Date/Time User Outcome 07/19/24 1445 Yoanna Guille-Mahoney, SEISMIC COMPUTER/L Progressing 07/17/24 1439 Yoanna Guille-Mahoney, SEISMIC COMPUTER/L Progressing Problem: Bathing LB Dates: Start: 07/13/24 [...] Yoanna Guille-Mahoney, KWADWO/L Progressing 07/17/24 1439 Yoanna Rochag KWADWO/L Progressing Problem: Dressing LB Dates: Start: [...] Date/Time User Outcome 07/19/24 1445 Yoanna Han-Mahoney, SEISMIC COMPUTER/L Progressing 07/17/24 1439 Yoanna Han-Mahoney, KWADWO/L Progressing Problem: Toilet Transfers Dates: Start: 07/13/24 Disciplines: OT Goal: Patient will perform toilet transfers Independently Dates: Start: 07/13/24 Expected End: 08/13/24 Description: Goal Description: Disciplines: OT Outcomes Date/Time User Outcome 07/17/24 1439 Yoanna Han-Mahoney, SEISMIC COMPUTER/L Progressing Problem: Toileting Dates: Start: 07/13/24 Disciplines: OT Goal: Patient will perform toileting Independently Dates: Start: 07/13/24 Expected End: 08/13/24 Description: Goal Description: Disciplines: OT Outcomes Date/Time User Outcome 07/17/24 1439 KWADWO Hogan/Jerome Progressing Problem: Transfers Dates: Start: 07/13/24 Disciplines: OT Goal: Patient will perform transfers Independently Dates: Start: 07/13/24 Expected End: 08/13/24 Description: Goal Description: Disciplines: OT Outcomes Date/Time User Outcome 07/19/24 1445 Yoanna Seng KWADWO/L Progressing 07/17/24 1439 YoannaKWADWO Perez/Jerome Progressing Occupational Therapy Care Plan (Resolved) There are no resolved problems. Principal Problem: Dementia with behavioral disturbance ([facility]) Active Problems: Altered mental status Status post colostomy, follow-up exam ([facility]) Cosigned by RAMONITA Dillon at 07/19/2024 3:13 [...] 6 Clicks: Basic Mobility Raw Score: 20 [facility] G Code Modifier: CJ Patient Response to Treatment: Slow progress, decreased activity tolerance Assessment Patient Assessment Patient Response to Treatment: Slow progress, decreased activity tolerance Visit RN Communication: Yes Medical Record Reviewed: Yes PT Type of Visit: Treatment Precautions Activity: ok for therapy per MARCI Rothman Equipment: gait belt Telemetry/Cash Posting Representative: Yes Oxygen Used: room air Other: fall [...] of Support: Within Functional Limits Pattern: Decreased maryt, R Decreased foot clearance, L Decreased foot [...] Disciplines: PT Outcomes Date/Time User Outcome 07/19/24 1459 Vinod Vaca PTA Progressing 07/17/24 1443 Vinod [...] Goal: Patient will perform stairs/curb with Modified Dixie Dates: Start: 07/13/24 Expected End: 07/27/24 Description: [...] problems. Principal Problem: Dementia with behavioral disturbance ([facility]) Active Problems: Altered mental status Status post colostomy, follow-up exam ([facility]) Cosigned by Jose Gorman PT at 07/19/2024 [...] at the bedside 7. Instruct patient/ patient sales training representative about use of safety devices 8. Include patient/ patient sales training representative in decisions related to safety Outcome: Progressing Note: Evaluation of progress towards goal: Patient remains injury free at this time. Problem: Knowledge Deficit Goal: Patient/patient sales training representative demonstrates understanding of disease process, treatment [...] Score of =/> 25 or indicated by [facility] Assessment Goal: Patient should be free from fall Description: Interventions: 1. Maxbass to environment 2. Hourly rounds addressing the [...] non-skid footwear 11. Teach patient and patient sales training representative to maintain environment for safety and [...] (cane, walker) within reach 19. Request patient sales training representative bring adaptive equipment/mobility aids from home or obtain and provide as needed 20. Consult pharmacy regarding effects of med's affecting mobility, cognition, and alternatives 21. Obtain physician order for PT if risk factors associated with mobility are present 22. Obtain physician order for OT as appropriate 23. Utilize diversional activities 24. Educate patient and patient sales training representative how to maintain a safe environment during visitation times (notify nurse prior to leaving bedside) 25. Consider appropriateness of medical or non-medical officer psychiatry 26. Set up voiding schedule as appropriate (every 2 hours) Outcome: Progressing Note: Evaluation of progress towards goal: Patient remains free from falls. DISCHARGE PLANNING NOTE Updates to [facility] (P# ; F# ) Images from the original note were not included. DISCHARGE PLANNING NOTE Discussed patient today during rounds. Plan-TBI center VS IPR. This script writer and floor Mgr spoke with patient's over the phone and his sister in his room re: d/c planning. Updated them that [facility] has denied. Offered to send referral to [facility] to see if they can accept as well as sending blanketed SNF referrals. They are in agreement with sending to [facility] at this time and will let us know today if they would like SNF referrals sent or if the back up plan would be home. Tasked [facility] to send referral to [facility]. Leadership team aware. Services Requested: Services Requested Patient expects to be discharged to:: TBI center VS IPR Discharge Disposition: Acute rehab Patient Goals: Goals: Goals <enter goal here> (pt-stated) Evaluation of progress towards goal: TBI center vs IPR - NANCY PARRISH 07/19/24 10:42 AM This script writer and flooring machine feeder and Dr. Shipley spoke with patient, and sister re: d/c planning. They are aware that [facility] is still reviewing referral. Asked if SNF referrals can be sent and they declined stating they would like the physician to see if she can get him transferred to [facility] as a physician to physician transfer. Updated Leadership. If neither of these hospitals can accept then patient to d/c home with since SNF has been declined. - NANCY PARRISH 07/19/24 12:14 PM This script writer and floor mgr spoke with family to let them know [facility] has denied patient and that they recommend SNF for him. Tasked [facility] to send neuro note from today to [facility] to see if they can accept him [...] at the bedside 7. Instruct patient/ patient sales training representative about use of safety devices 8. Include patient/ patient sales training representative in decisions related to safety Outcome: Progressing Note: Evaluation of progress towards goal: Problem: Knowledge Deficit Goal: Patient/patient sales training representative demonstrates understanding of disease process, treatment [...] at the bedside 7. Instruct patient/ patient sales training representative about use of safety devices 8. Include patient/ patient sales training representative in decisions related to safety Outcome: Progressing Note: Evaluation of progress towards goal: Problem: Knowledge Deficit Goal: Patient/patient sales training representative demonstrates understanding of disease process, treatment [...] at the bedside 7. Instruct patient/ patient sales training representative about use of safety devices 8. Include patient/ patient sales training representative in decisions related to safety Outcome: Progressing Note: Evaluation of progress towards goal: patient is injury free at this time. Problem: Knowledge Deficit Goal: Patient/patient sales training representative demonstrates understanding of disease process, treatment [...] Moderate - High Risk Fall Score Description: [place] Fall Score of =/> 25 or indicated by [facility] Assessment Goal: Patient should be free from fall Description: Interventions: 1. Maxbass to environment 2. Hourly rounds addressing the [...] non-skid footwear 11. Teach patient and patient sales training representative to maintain environment for safety and [...] (cane, walker) within reach 19. Request patient sales training representative bring adaptive equipment/mobility aids from home or obtain and provide as needed 20. Consult pharmacy regarding effects of med's affecting mobility, cognition, and alternatives 21. Obtain physician order for PT if risk factors associated with mobility are present 22. Obtain physician order for OT as appropriate 23. Utilize diversional activities 24. Educate patient and patient sales training representative how to maintain a safe environment during visitation times (notify nurse prior to leaving bedside) 25. Consider appropriateness of medical or non-medical officer psychiatry 26. Set up voiding schedule as appropriate (every 2 hours) Outcome: Progressing Note: Evaluation of progress towards goal: Patient is free from falls at this time. DISCHARGE PLANNING NOTE Referral sent to [facility] (P# [phone] ; F# [phone]) Images from the original note were not included. DISCHARGE PLANNING NOTE Discussed patient today during rounds. Patient's requested updates be sent to [facility]. Tasked [facility] to send. Leadership team aware as well as floor nurse. Barriers- acceptance, auth. Services Requested: Services Requested Patient expects to be discharged to:: home vs snf Patient Goals: Goals: Goals <enter goal here> (pt-stated) Evaluation of progress towards goal: TBD-pending PT/OT eval - NANCY PARRISH 07/18/24 10:30 AM Still awaiting response from [facility] if they can accept patient. Leadership team [...] at the bedside 7. Instruct patient/ patient sales training representative about use of safety devices 8. Include patient/ patient sales training representative in decisions related to safety Outcome: [...] be free from fall Description: Interventions: 1. Maxbass to environment 2. Hourly rounds addressing the [...] non-skid footwear 11. Teach patient and patient sales training representative to maintain environment for safety and [...] (cane, walker) within reach 19. Request patient sales training representative bring adaptive equipment/mobility aids from home or obtain and provide as needed 20. Consult pharmacy regarding effects of med's affecting mobility, cognition, and alternatives 21. Obtain physician order for PT if risk factors associated with mobility are present 22. Obtain physician order for OT as appropriate 23. Utilize diversional activities 24. Educate patient and patient sales training representative how to maintain a safe environment during visitation times (notify nurse prior to leaving bedside) 25. Consider appropriateness of medical or non-medical officer psychiatry 26. Set up voiding schedule as appropriate (every 2 hours) Outcome: Progressing Note: Evaluation of progress towards goal: Patient will remain free from falls. DISCHARGE PLANNING NOTE Referral sent to. [facility] (P# [phone] ; F# [phone], ) Physical Therapy Treatment Discharge Recommendations PT [...] Rothman Equipment: gait belt and chair alarm Telemetry/Cash Posting Representative: Yes Oxygen Used: room air Other: fall [...] Goal: Patient will perform stairs/curb with Modified Dixie Dates: Start: 07/13/24 Expected End: 07/27/24 Description: [...] problems. Principal Problem: Dementia with behavioral disturbance ([facility]) Active Problems: Altered mental status Status post colostomy, follow-up exam ([facility]) Cosigned by Janice Nuno PT at 07/18/2024 [...] Rothman Equipment: gait belt and chair alarm Telemetry/Cash Posting Representative: Yes Oxygen Used: room air Other: fall [...] Date/Time User Outcome 07/17/24 1439 Yoanna Han-Mahoney, SEISMIC COMPUTER/L Progressing Problem: Toilet Transfers Dates: Start: 07/13/24 [...] problems. Principal Problem: Dementia with behavioral disturbance ([facility]) Active Problems: Altered mental status Status post colostomy, follow-up exam ([facility]) Cosigned by RAMONITA Navarro at 07/17/2024 3:03 [...] at the bedside 7. Instruct patient/ patient sales training representative about use of safety devices 8. Include patient/ patient sales training representative in decisions related to safety Outcome: Progressing Note: Evaluation of progress towards goal: Patient is injury free at this time. Problem: Knowledge Deficit Goal: Patient/patient sales training representative demonstrates understanding of disease process, treatment [...] Score of =/> 25 or indicated by [facility] Assessment Goal: Patient should be free from fall Description: Interventions: 1. Maxbass to environment 2. Hourly rounds addressing the [...] non-skid footwear 11. Teach patient and patient sales training representative to maintain environment for safety and [...] (cane, walker) within reach 19. Request patient sales training representative bring adaptive equipment/mobility aids from home or obtain and provide as needed 20. Consult pharmacy regarding effects of med's affecting mobility, cognition, and alternatives 21. Obtain physician order for PT if risk factors associated with mobility are present 22. Obtain physician order for OT as appropriate 23. Utilize diversional activities 24. Educate patient and patient sales training representative how to maintain a safe environment during visitation times (notify nurse prior to leaving bedside) 25. Consider appropriateness of medical or non-medical officer psychiatry 26. Set up voiding schedule as appropriate (every 2 hours) Outcome: Progressing Note: Evaluation of progress towards goal: Patient is free from falls at this time. DISCHARGE PLANNING NOTE fax referral to [facility] to [phone] shannan Shah Images from the original note were not included. DISCHARGE PLANNING NOTE Discussed patient today during rounds. Plan- IPR/TBI center. Barriers- acceptance, auth. This script writer called both reviewing facilities and left for admissions to see if they can accept. Asked them to call this script writer back. Floor nurse and leadership team aware. Services Requested: Services Requested Patient expects to be discharged to:: home vs snf Patient Goals: Goals: Goals <enter goal here> (pt-stated) Evaluation of progress towards goal: TBD-pending PT/OT eval - NANCY PARRISH 07/17/24 9:42 AM At this time we do not have an accepting TBI/IPR facility. This script writer and flooring machine feeder attempted to speak with patient's but she is not in the room. Also tried to call her but it went right to and her box is full. - NANCY PARRISH 07/17/24 1:43 PM [facility] called this script writer since they don't respond in [facility] and they can not accept patient. This script writer and flooring machine feeder spoke with patient's and patient's sister that [...] at the bedside 7. Instruct patient/ patient sales training representative about use of safety devices 8. Include patient/ patient sales training representative in decisions related to safety Outcome: Progressing Note: Evaluation of progress towards goal: Patient remains injury and fall free. Safety precautions in place: call light within reach, bed in lowest position, personal belongings within reach, oriented to environment, and non-slip footwear on. Problem: Knowledge Deficit Goal: Patient/patient sales training representative demonstrates understanding of disease process, treatment [...] towards goal: Patient to discharge to TBI [facility], awaiting an accepting facility. Problem: Neurological [...] Score of =/> 25 or indicated by [facility] Assessment Goal: Patient should be free from fall Description: Interventions: 1. Maxbass to environment 2. Hourly rounds addressing the [...] non-skid footwear 11. Teach patient and patient sales training representative to maintain environment for safety and [...] (cane, walker) within reach 19. Request patient sales training representative bring adaptive equipment/mobility aids from home or obtain and provide as needed 20. Consult pharmacy regarding effects of med's affecting mobility, cognition, and alternatives 21. Obtain physician order for PT if risk factors associated with mobility are present 22. Obtain physician order for OT as appropriate 23. Utilize diversional activities 24. Educate patient and patient sales training representative how to maintain a safe environment during visitation times (notify nurse prior to leaving bedside) 25. Consider appropriateness of medical or non-medical officer psychiatry 26. Set up voiding schedule as appropriate [...] Therapy Care Plan (Active) Template: [facility] Re[facility] Speech Problem: Auditory Comprehension Dates: Start: 07/12/24 Disciplines: PEDIATRIC PHYSICAL THERAPY ASSISTANT Goal: LTG: Patient will comprehend communication related to basic medical and social needs and utilize compensatory strategies to maintain safety in a functional living environment Dates: Start: 07/12/24 Expected End: 08/12/24 Disciplines: PEDIATRIC PHYSICAL THERAPY ASSISTANT Goal: STG: Patient will answer complex yes/no questions with 90% accuracy with minimal cueing Dates: Start: 07/12/24 Expected End: 08/12/24 Disciplines: PEDIATRIC PHYSICAL THERAPY ASSISTANT Outcomes Date/Time User Outcome 07/16/24 1520 MAGALI Castellanos Progressing Goal: STG: Patient will complete 1-3 step commands with 90% accuracy with minimal cueing Dates: Start: 07/12/24 Expected End: 08/12/24 Disciplines: PEDIATRIC PHYSICAL THERAPY ASSISTANT Outcomes Date/Time User Outcome 07/16/24 1520 MAGALI Castellanos Progressing Goal: STG: Patient will complete simple, phrase level auditory comprehension tasks with 90% accuracy with minimal cueing Dates: Start: 07/12/24 Expected End: 08/12/24 Disciplines: PEDIATRIC PHYSICAL THERAPY ASSISTANT Problem: Cognitive Linguistic Dates: Start: 07/12/24 Disciplines: PEDIATRIC PHYSICAL THERAPY ASSISTANT Goal: LTG: Patient will display functional cognitive-linguistic skills to demonstrate appropriate communication and safety within daily activities in a functional living environment Dates: Start: 07/12/24 Expected End: 08/12/24 Disciplines: PEDIATRIC PHYSICAL THERAPY ASSISTANT Goal: STG: Patient will demonstrate sustained attention by maintaining focus during a task for 10 minutes with minimal assistance Dates: Start: 07/12/24 Expected End: 08/12/24 Disciplines: PEDIATRIC PHYSICAL THERAPY ASSISTANT Outcomes Date/Time User Outcome 07/16/[address] [facility]-PEDIATRIC PHYSICAL THERAPY ASSISTANT Progressing Goal: STG: Patient will be appropriately oriented to person, place, time and situation with 90% accuracy with minimal cueing Dates: Start: 07/12/24 Expected End: 08/12/24 Disciplines: PEDIATRIC PHYSICAL THERAPY ASSISTANT Goal: STG: Patient will recall information discussed during therapy session via retelling/answering questions with 90% accuracy with minimal cueing Dates: Start: 07/12/24 Expected End: 08/12/24 Disciplines: PEDIATRIC PHYSICAL THERAPY ASSISTANT Problem: High Level Language Dates: Start: 07/12/24 Disciplines: PEDIATRIC PHYSICAL THERAPY ASSISTANT Goal: LTG: Patient will demonstrate use of self-awareness, goal setting, planning, initiation, self-monitoring and problem solving during daily activities to improve safety and awareness in a functional living environment Dates: Start: 07/12/24 Expected End: 08/12/24 Disciplines: PEDIATRIC PHYSICAL THERAPY ASSISTANT Goal: STG: Patient will sequence 4-6 steps to a task (verbal, written, pictures) with 90% accuracy with minimal cueing Dates: Start: 07/12/24 Expected End: 08/12/24 Disciplines: PEDIATRIC PHYSICAL THERAPY ASSISTANT Goal: STG: Patient will provide 3 appropriate solutions to problems of daily living with 90% accuracy with minimal cueing Dates: Start: 07/12/24 Expected End: 08/12/24 Disciplines: PEDIATRIC PHYSICAL THERAPY ASSISTANT Goal: STG: Patient will demonstrate functional problem solving and safety awareness with 90% accuracy in daily living tasks in order to increase safe interactions with environment and decrease assistance from caregivers Dates: Start: 07/12/24 Expected End: 08/12/24 Disciplines: PEDIATRIC PHYSICAL THERAPY ASSISTANT Problem: Verbal Expression Dates: Start: 07/12/24 Disciplines: PEDIATRIC PHYSICAL THERAPY ASSISTANT Goal: LTG: Patient will utilize compensatory strategies to communicate wants and needs effectively to different conversational partners, maintain safety and participate socially in a functional living environment Dates: Start: 07/12/24 Expected End: 08/12/24 Disciplines: PEDIATRIC PHYSICAL THERAPY ASSISTANT Goal: STG: Patient will respond to simple/complex open ended questions during activities of daily living with 90% accuracy with minimal cueing Dates: Start: 07/12/24 Expected End: 08/12/24 Disciplines: PEDIATRIC PHYSICAL THERAPY ASSISTANT Goal: STG: Patient will maintain topic of conversation to decrease tangential speech with 90% accuracy with minimal cueing Dates: Start: 07/12/24 Expected End: 08/12/24 Disciplines: PEDIATRIC PHYSICAL THERAPY ASSISTANT Outcomes Date/Time User Outcome 07/16/24 1520 Conchita Devi CCC-PEDIATRIC PHYSICAL THERAPY ASSISTANT Progressing Speech Therapy Care Plan (Resolved) There are no resolved problems. Principal Problem: Dementia with behavioral disturbance ([facility]) Active Problems: Altered mental status Status post colostomy, follow-up exam ([facility]) DISCHARGE PLANNING NOTE Resent referral in [facility] to [facility] P#[phone]; F#[phone] sent via secure fax to [phone] Problem: Safety Goal: Patient will be injury free during hospitalization Description: INTERVENTIONS: 1. Assess patient's risk for falls and implement fall prevention plan of care per policy 2. Provide and maintain a safe environment 3. Proper use of double Identifiers 4. Medication administration using the 5 rights 5. Hand hygiene 6. Specimens are labeled at the bedside 7. Instruct patient/ patient sales training representative about use of safety devices 8. Include patient/ patient sales training representative in decisions related to safety Outcome: Progressing Note: Evaluation of progress towards goal: pain will be adequally controlled to allow for rest and adl's Problem: Knowledge Deficit Goal: Patient/patient sales training representative demonstrates understanding of disease process, treatment [...] Score of =/> 25 or indicated by [facility] Assessment Goal: Patient should be free from fall Description: Interventions: 1. Maxbass to environment 2. Hourly rounds addressing the [...] non-skid footwear 11. Teach patient and patient sales training representative to maintain environment for safety and [...] (cane, walker) within reach 19. Request patient sales training representative bring adaptive equipment/mobility aids from home or obtain and provide as needed 20. Consult pharmacy regarding effects of med's affecting mobility, cognition, and alternatives 21. Obtain physician order for PT if risk factors associated with mobility are present 22. Obtain physician order for OT as appropriate 23. Utilize diversional activities 24. Educate patient and patient sales training representative how to maintain a safe environment during visitation times (notify nurse prior to leaving bedside) 25. Consider appropriateness of medical or non-medical officer psychiatry 26. Set up voiding schedule as appropriate (every 2 hours) Outcome: Progressing Note: Evaluation of progress towards goal: fall bundle DISCHARGE PLANNING NOTE Clinical updates sent to Referrals sent to [facility] (P# [phone] ; F# [phone]) and to [facility] and to [facility] DISCHARGE PLANNING NOTE Referral sent to. [facility] Via secure fax to [phone]. This is theor fax per phone call to facility. P#[phone]. Provider not in [employer]. DISCHARGE PLANNING NOTE Discharge plan- TBD waiting to hear from TBI/IPR who can accept out of the reviewing facilities. [facility] in [facility] called this script writer and will call his to discuss. If they are able to accept she would owe private pay for room and board and money is due up front. Updated leadership team and floor nurse. - NANCY PARRISH 07/16/24 8:50 AM Discussed patient today during rounds. Called [facility] and left a VM for admissions to see if they can accept. Awaiting responses from the other facilities to respond. Barriers- acceptance, auth. - NANCY PARRISH 07/16/24 10:58 AM Called admissions at [facility] and [facility] and left VM asking them if they can accept and to call this script writer back. Left callback #. - NANCY PARRISH 07/16/24 11:05 AM Still awaiting responses from all reviewing IPR this time. Leadership aware. Called [facility] and spoke with admissions and they will review. Also called [facility] and left another VM. Both in [place] are still reviewing at this time. - [...] at the bedside 7. Instruct patient/ patient sales training representative about use of safety devices 8. Include patient/ patient sales training representative in decisions related to safety Outcome: Progressing Note: Evaluation of progress towards goal: Patient remains injury and fall free. Safety precautions in place: call light within reach, bed in lowest position, personal belongings within reach, oriented to environment, and non-slip footwear on. Problem: Knowledge Deficit Goal: Patient/patient sales training representative demonstrates understanding of disease process, treatment [...] Collaborate with ancillary departments 14. Include patient/patient sales training representative in decisions related to anxiety Outcome: Progressing Note: Evaluation of progress towards goal: Patient's anxiety appears to be at manageable level. Problem: Moderate - High Risk Fall Score Description: Gallegos Fall Score of =/> 25 or indicated by [facility] Assessment Goal: Patient should be free from fall Description: Interventions: 1. Maxbass to environment 2. Hourly rounds addressing the [...] non-skid footwear 11. Teach patient and patient sales training representative to maintain environment for safety and [...] (cane, walker) within reach 19. Request patient sales training representative bring adaptive equipment/mobility aids from home or obtain and provide as needed 20. Consult pharmacy regarding effects of med's affecting mobility, cognition, and alternatives 21. Obtain physician order for PT if risk factors associated with mobility are present 22. Obtain physician order for OT as appropriate 23. Utilize diversional activities 24. Educate patient and patient sales training representative how to maintain a safe environment during visitation times (notify nurse prior to leaving bedside) 25. Consider appropriateness of medical or non-medical officer psychiatry 26. Set up voiding schedule as appropriate [...] at the bedside 7. Instruct patient/ patient sales training representative about use of safety devices 8. Include patient/ patient sales training representative in decisions related to safety Outcome: [...] Score of =/> 25 or indicated by [facility] Assessment Goal: Patient should be free from fall Description: Interventions: 1. Maxbass to environment 2. Hourly rounds addressing the [...] non-skid footwear 11. Teach patient and patient sales training representative to maintain environment for safety and [...] (cane, walker) within reach 19. Request patient sales training representative bring adaptive equipment/mobility aids from home or obtain and provide as needed 20. Consult pharmacy regarding effects of med's affecting mobility, cognition, and alternatives 21. Obtain physician order for PT if risk factors associated with mobility are present 22. Obtain physician order for OT as appropriate 23. Utilize diversional activities 24. Educate patient and patient sales training representative how to maintain a safe environment during visitation times (notify nurse prior to leaving bedside) 25. Consider appropriateness of medical or non-medical officer psychiatry 26. Set up voiding schedule as appropriate [...] at the bedside 7. Instruct patient/ patient sales training representative about use of safety devices 8. Include patient/ patient sales training representative in decisions related to safety Outcome: Progressing Note: Evaluation of progress towards goal: Proper identifiers used with patient care and medication administration. Remains free of injury during shift Problem: Knowledge Deficit Goal: Patient/patient sales training representative demonstrates understanding of disease process, treatment [...] Collaborate with ancillary departments 14. Include patient/patient sales training representative in decisions related to anxiety Outcome: [...] be free from fall Description: Interventions: 1. Maxbass to environment 2. Hourly rounds addressing the [...] non-skid footwear 11. Teach patient and patient sales training representative to maintain environment for safety and [...] (cane, walker) within reach 19. Request patient sales training representative bring adaptive equipment/mobility aids from home or obtain and provide as needed 20. Consult pharmacy regarding effects of med's affecting mobility, cognition, and alternatives 21. Obtain physician order for PT if risk factors associated with mobility are present 22. Obtain physician order for OT as appropriate 23. Utilize diversional activities 24. Educate patient and patient sales training representative how to maintain a safe environment during visitation times (notify nurse prior to leaving bedside) 25. Consider appropriateness of medical or non-medical officer psychiatry 26. Set up voiding schedule as appropriate [...] at the bedside 7. Instruct patient/ patient sales training representative about use of safety devices 8. Include patient/ patient sales training representative in decisions related to safety Outcome: Progressing Note: Evaluation of progress towards goal: pain will be controlled to allow for rest and adl's Problem: Knowledge Deficit Goal: Patient/patient sales training representative demonstrates understanding of disease process, treatment [...] Collaborate with ancillary departments 14. Include patient/patient sales training representative in decisions related to anxiety Outcome: Progressing Note: Evaluation of progress towards goal: listen and reassuring Problem: Moderate - High Risk Fall Score Description: Gallegos Fall Score of =/> 25 or indicated by [facility] Assessment Goal: Patient should be free from fall Description: Interventions: 1. Maxbass to environment 2. Hourly rounds addressing the [...] non-skid footwear 11. Teach patient and patient sales training representative to maintain environment for safety and [...] (cane, walker) within reach 19. Request patient sales training representative bring adaptive equipment/mobility aids from home or obtain and provide as needed 20. Consult pharmacy regarding effects of med's affecting mobility, cognition, and alternatives 21. Obtain physician order for PT if risk factors associated with mobility are present 22. Obtain physician order for OT as appropriate 23. Utilize diversional activities 24. Educate patient and patient sales training representative how to maintain a safe environment during visitation times (notify nurse prior to leaving bedside) 25. Consider appropriateness of medical or non-medical officer psychiatry 26. Set up voiding schedule as appropriate (every 2 hours) Outcome: Progressing Note: Evaluation of progress towards goal: fallbundle DISCHARGE PLANNING NOTE Referrals sent to [facility] (P# [phone] ; F# [phone]) and to [facility] and to [facility] and to [facility] in [facility] p#: [phone] f#: [phone] DISCHARGE PLANNING NOTE Follow-up Discharge Planning Progress Note Per RN during discharge transition rounds, barriers to discharge are: Accepting acute inpatient rehabilitation center. Discharge Plan: Patient Support Specialist followed up with patient, spouse and patient sister at bedside. Updated, [facility], not accepting, not in network [...] Discussed lower levels of care such as [facility] and Home care. Patient spouse and sister verbalized understanding. Choices received. [facility] tasked to send referrals. Attempted to [...] at the bedside 7. Instruct patient/ patient sales training representative about use of safety devices 8. Include patient/ patient sales training representative in decisions related to safety Outcome: Progressing Note: Evaluation of progress towards goal: Proper identifiers used with patient care and medication administration. Remains free of injury during shift Problem: Knowledge Deficit Goal: Patient/patient sales training representative demonstrates understanding of disease process, treatment [...] Collaborate with ancillary departments 14. Include patient/patient sales training representative in decisions related to anxiety Outcome: [...] be free from fall Description: Interventions: 1. Maxbass to environment 2. Hourly rounds addressing the [...] non-skid footwear 11. Teach patient and patient sales training representative to maintain environment for safety and [...] (cane, walker) within reach 19. Request patient sales training representative bring adaptive equipment/mobility aids from home or obtain and provide as needed 20. Consult pharmacy regarding effects of med's affecting mobility, cognition, and alternatives 21. Obtain physician order for PT if risk factors associated with mobility are present 22. Obtain physician order for OT as appropriate 23. Utilize diversional activities 24. Educate patient and patient sales training representative how to maintain a safe environment during visitation times (notify nurse prior to leaving bedside) 25. Consider appropriateness of medical or non-medical officer psychiatry 26. Set up voiding schedule as appropriate (every 2 hours) Outcome: Progressing Note: Evaluation of progress towards goal: Call light within reach. Remains free of fall or injury. Environment free of clutter. Problem: Safety - Medical Restraint Goal: Remains free of injury from restraints (Restraint for Interference with Law Firm Partner) Description: INTERVENTIONS: 1. Determine that other, less [...] Free from restraint(s) (Restraint for Interference with Law Firm Partner) Description: INTERVENTIONS: 1. ONCE/SHIFT or MINIMUM Q12H: [...] some TBI facilities at [facility] and in [place] but at this time they are angry that [facility] did not accept patient. Patient Support Specialist will request SW follow up with them in the morning to obtain choices to continue developing a transition of care plan. DISCHARGE PLANNING NOTE Referral sent to [facility] P#[phone]; F#([phone]); [facility] P# [phone] [calling report];/[facility] (P# [calling report]; F# ) DISCHARGE PLANNING NOTE Per RN during discharge transition rounds, barriers to discharge are: Telesitter, PMR re-eval, Seroquel dose adjustment. Discharge Plan: IPR for TBI rehab. PT/OT recommended IPR. CN met with and sister Earlene. wants a referral sent to [facility]. CN discussed discharge and making referrals to other TBI/ IPR rehabs in the state, and sister stated they are putting all their zak in [facility] being able to accept the patient. Hvac Estimator will continue to follow for any discharge needs. - Lesia Caba RN 07/13/24 12:18 PM Addendum: [facility] is not in network with patients [employer] insurance. gave CN two more choices : [facility]PR and [facility] rehab. [facility] tasked to send referrals. and sister are calling insurance to ask about a one time contract to [facility]. Ethel , [facility] rep, stopped in to talk to and sister. - Lesia Caba RN 07/13/24 2:10 PM Addendum: Patient's and sister asked CN to listen and talk to insurance claims processor regarding a one time approval for the IPR: [facility]. Lumber Racker Xiomy with [facility] [employer] stated attending or managing physician needs to document patient's health status and progression, information on why the patient needs to go this specific facility for rehab, include diagnosis codes and services codes. Fax: Prior Auth Request to [phone] attn: Prior Auth Request at [email or web address]. CN sent pic chat to Dr. Nichol [...] PM DISCHARGE PLANNING NOTE Referral to [facility] (P# ; F# ) Occupational Therapy [...] reflux disease) High cholesterol Perforated sigmoid colon ([facility]) Past Surgical History: Procedure Laterality Date ARM EXPLORATION WITH REPAIR LACERATED ULNAR ARTERY Left 11/24/2019 Performed by Skyler Bowen MD at [facility] 3YEARS AGO COLOSTOMY CLOSURE Therapy Plan Need [...] early mobility guidelines. Equipment: gait belt, telemetry Telemetry/Cash Posting Representative: Yes Oxygen Used: room air Other: fall [...] and pants. Patient was able to static business reporting developer front of toilet with contact guard. Patient was unable to void due to trouble with processing, safety and judgement. Home Management - IADL Other: patient has trouble executing tasks. patient was able to ambulate into bathroom with contact guard. patient required min assist to doff underware and pants. Patient was able to static business reporting developer front of toilet with contact guard. Patient was unable to void due to trouble with processing, safety and judgement. Hearing / Speech / Vision Hearing: Within Functional Limits Speech: Within Functional Limits Cognition Overall Cognitive Status: Exceptions to Within Functional Limits Arousal/Alertness: Delayed responses to stimuli Orientation Level: Oriented to person (patient was not able to recognize , hayleytent was not able to recall date of [...] problems. Principal Problem: Dementia with behavioral disturbance ([facility]) Active Problems: Altered mental status Status post colostomy, follow-up exam ([facility]) Physical Therapy Evaluation Discharge Recommendations PT Recommendations: [...] from admission 07/06 as a transfer from [facility] for neurological work up. Patient diagnosed with early onset dementia 2022, per spouse report after prison and med changes cognitive status had improved and stabilized prior to fall in May 2024. 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 Pt discharged to inpatient treatment facility and returned to [facility] for scheduled MRI. 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 Principal Problem: Dementia with behavioral disturbance ([facility]) Active Problems: Altered mental status Status post colostomy, follow-up exam ([facility]) Problem: Safety Goal: Patient will be injury free during hospitalization Description: INTERVENTIONS: 1. Assess patient's risk for falls and implement fall prevention plan of care per policy 2. Provide and maintain a safe environment 3. Proper use of double Identifiers 4. Medication administration using the 5 rights 5. Hand hygiene 6. Specimens are labeled at the bedside 7. Instruct patient/ patient sales training representative about use of safety devices 8. Include patient/ patient sales training representative in decisions related to safety Outcome: Progressing Note: Evaluation of progress towards goal: Patient remains injury and fall free. Safety precautions in place: call light within reach, bed in lowest position, personal belongings within reach, oriented to environment, and non-slip footwear on. Problem: Knowledge Deficit Goal: Patient/patient sales training representative demonstrates understanding of disease process, treatment [...] Collaborate with ancillary departments 14. Include patient/patient sales training representative in decisions related to anxiety Outcome: Progressing Note: Evaluation of progress towards goal: Patient's has at bedside to help with spells of anxiety. Problem: Moderate - High Risk Fall Score Description: Gallegos Fall Score of =/> 25 or indicated by [facility] Assessment Goal: Patient should be free from fall Description: Interventions: 1. Maxbass to environment 2. Hourly rounds addressing the [...] non-skid footwear 11. Teach patient and patient sales training representative to maintain environment for safety and [...] (cane, walker) within reach 19. Request patient sales training representative bring adaptive equipment/mobility aids from home or obtain and provide as needed 20. Consult pharmacy regarding effects of med's affecting mobility, cognition, and alternatives 21. Obtain physician order for PT if risk factors associated with mobility are present 22. Obtain physician order for OT as appropriate 23. Utilize diversional activities 24. Educate patient and patient sales training representative how to maintain a safe environment during visitation times (notify nurse prior to leaving bedside) 25. Consider appropriateness of medical or non-medical officer psychiatry 26. Set up voiding schedule as appropriate (every 2 hours) Outcome: Progressing Note: Evaluation of progress towards goal: Patient remains injury and fall free. Safety precautions in place: call light within reach, bed in lowest position, personal belongings within reach, oriented to environment, and non-slip footwear on. Problem: Safety - Medical Restraint Goal: Remains free of injury from restraints (Restraint for Interference with Law Firm Partner) Description: INTERVENTIONS: 1. Determine that other, less [...] Free from restraint(s) (Restraint for Interference with Law Firm Partner) Description: INTERVENTIONS: 1. ONCE/SHIFT or MINIMUM Q12H: [...] CN escalated this case to CN leadership. Hvac Estimator will continue to follow for any discharge [...] at the bedside 7. Instruct patient/ patient sales training representative about use of safety devices 8. Include patient/ patient sales training representative in decisions related to safety Outcome: Progressing Note: Evaluation of progress towards goal: Patient remains injury free at present time. Safe environment provided and maintained. Medications administered using 5 rights. Problem: Knowledge Deficit Goal: Patient/patient sales training representative demonstrates understanding of disease process, treatment [...] Collaborate with ancillary departments 14. Include patient/patient sales training representative in decisions related to anxiety Outcome: Progressing Note: Evaluation of progress towards goal: Patient has family at bedside assisting with anxiety. Problem: Safety - Medical Restraint Goal: Remains free of injury from restraints (Restraint for Interference with Law Firm Partner) Description: INTERVENTIONS: 1. Determine that other, less [...] Free from restraint(s) (Restraint for Interference with Law Firm Partner) Description: INTERVENTIONS: 1. ONCE/SHIFT or MINIMUM Q12H: [...] continue to follow along. Prognosis Services: Skilled PEDIATRIC PHYSICAL THERAPY ASSISTANT services to address the above deficits [...] Plan Speech Therapy Care Plan (Active) Template: [facility] Speech Problem: Auditory Comprehension Dates: Start: 07/12/24 Disciplines: PEDIATRIC PHYSICAL THERAPY ASSISTANT Goal: LTG: Patient will comprehend communication related to basic medical and social needs and utilize compensatory strategies to maintain safety in a functional living environment Dates: Start: 07/12/24 Expected End: 08/12/24 Disciplines: PEDIATRIC PHYSICAL THERAPY ASSISTANT Goal: STG: Patient will answer complex yes/no questions with 90% accuracy with minimal cueing Dates: Start: 07/12/24 Expected End: 08/12/24 Disciplines: PEDIATRIC PHYSICAL THERAPY ASSISTANT Goal: STG: Patient will complete 1-3 step commands with 90% accuracy with minimal cueing Dates: Start: 07/12/24 Expected End: 08/12/24 Disciplines: PEDIATRIC PHYSICAL THERAPY ASSISTANT Goal: STG: Patient will complete simple, phrase level auditory comprehension tasks with 90% accuracy with minimal cueing Dates: Start: 07/12/24 Expected End: 08/12/24 Disciplines: PEDIATRIC PHYSICAL THERAPY ASSISTANT Problem: Cognitive Linguistic Dates: Start: 07/12/24 Disciplines: PEDIATRIC PHYSICAL THERAPY ASSISTANT Goal: LTG: Patient will display functional cognitive-linguistic skills to demonstrate appropriate communication and safety within daily activities in a functional living environment Dates: Start: 07/12/24 Expected End: 08/12/24 Disciplines: PEDIATRIC PHYSICAL THERAPY ASSISTANT Goal: STG: Patient will demonstrate sustained attention by maintaining focus during a task for 10 minutes with minimal assistance Dates: Start: 07/12/24 Expected End: 08/12/24 Disciplines: PEDIATRIC PHYSICAL THERAPY ASSISTANT Goal: STG: Patient will be appropriately oriented to person, place, time and situation with 90% accuracy with minimal cueing Dates: Start: 07/12/24 Expected End: 08/12/24 Disciplines: PEDIATRIC PHYSICAL THERAPY ASSISTANT Goal: STG: Patient will recall information discussed during therapy session via retelling/answering questions with 90% accuracy with minimal cueing Dates: Start: 07/12/24 Expected End: 08/12/24 Disciplines: PEDIATRIC PHYSICAL THERAPY ASSISTANT Problem: High Level Language Dates: Start: 07/12/24 Disciplines: PEDIATRIC PHYSICAL THERAPY ASSISTANT Goal: LTG: Patient will demonstrate use of self-awareness, goal setting, planning, initiation, self-monitoring and problem solving during daily activities to improve safety and awareness in a functional living environment Dates: Start: 07/12/24 Expected End: 08/12/24 Disciplines: PEDIATRIC PHYSICAL THERAPY ASSISTANT Goal: STG: Patient will sequence 4-6 steps to a task (verbal, written, pictures) with 90% accuracy with minimal cueing Dates: Start: 07/12/24 Expected End: 08/12/24 Disciplines: PEDIATRIC PHYSICAL THERAPY ASSISTANT Goal: STG: Patient will provide 3 appropriate solutions to problems of daily living with 90% accuracy with minimal cueing Dates: Start: 07/12/24 Expected End: 08/12/24 Disciplines: PEDIATRIC PHYSICAL THERAPY ASSISTANT Goal: STG: Patient will demonstrate functional problem solving and safety awareness with 90% accuracy in daily living tasks in order to increase safe interactions with environment and decrease assistance from caregivers Dates: Start: 07/12/24 Expected End: 08/12/24 Disciplines: PEDIATRIC PHYSICAL THERAPY ASSISTANT Problem: Verbal Expression Dates: Start: 07/12/24 Disciplines: PEDIATRIC PHYSICAL THERAPY ASSISTANT Goal: LTG: Patient will utilize compensatory strategies to communicate wants and needs effectively to different conversational partners, maintain safety and participate socially in a functional living environment Dates: Start: 07/12/24 Expected End: 08/12/24 Disciplines: PEDIATRIC PHYSICAL THERAPY ASSISTANT Goal: STG: Patient will respond to simple/complex open ended questions during activities of daily living with 90% accuracy with minimal cueing Dates: Start: 07/12/24 Expected End: 08/12/24 Disciplines: PEDIATRIC PHYSICAL THERAPY ASSISTANT Goal: STG: Patient will maintain topic of conversation to decrease tangential speech with 90% accuracy with minimal cueing Dates: Start: 07/12/24 Expected End: 08/12/24 Disciplines: PEDIATRIC PHYSICAL THERAPY ASSISTANT Speech Therapy Care Plan (Resolved) There are no resolved problems. Principal Problem: Dementia with behavioral disturbance ([facility]) Active Problems: Altered mental status Status post colostomy, follow-up exam ([facility]) Problem: Safety - Medical Restraint Goal: Remains free of injury from restraints (Restraint for Interference with Law Firm Partner) Description: INTERVENTIONS: 1. Determine that other, less [...] Free from restraint(s) (Restraint for Interference with Law Firm Partner) Description: INTERVENTIONS: 1. ONCE/SHIFT or MINIMUM Q12H: [...] elimination needs BEHAVIORAL RESTRAINTS PROVIDER ONE HOUR [id number] EVALUATION NOTE Estella Jeffery was evaluated on [...] at the bedside 7. Instruct patient/ patient sales training representative about use of safety devices 8. Include patient/ patient sales training representative in decisions related to safety Outcome: Progressing Note: Evaluation of progress towards goal: Patient remains injury and fall free. Safety precautions in place: call light within reach, bed in lowest position, personal belongings within reach, oriented to environment, and non-slip footwear on. Problem: Knowledge Deficit Goal: Patient/patient sales training representative demonstrates understanding of disease process, treatment [...] Collaborate with ancillary departments 14. Include patient/patient sales training representative in decisions related to anxiety Outcome: Progressing Note: Evaluation of progress towards goal: Patient has at bedside aiding in assisting with anxiety. Problem: Moderate - High Risk Fall Score Description: Gallegos Fall Score of =/> 25 or indicated by [facility] Assessment Goal: Patient should be free from fall Description: Interventions: 1. Maxbass to environment 2. Hourly rounds addressing the [...] non-skid footwear 11. Teach patient and patient sales training representative to maintain environment for safety and [...] (cane, walker) within reach 19. Request patient sales training representative bring adaptive equipment/mobility aids from home or obtain and provide as needed 20. Consult pharmacy regarding effects of med's affecting mobility, cognition, and alternatives 21. Obtain physician order for PT if risk factors associated with mobility are present 22. Obtain physician order for OT as appropriate 23. Utilize diversional activities 24. Educate patient and patient sales training representative how to maintain a safe environment during visitation times (notify nurse prior to leaving bedside) 25. Consider appropriateness of medical or non-medical officer psychiatry 26. Set up voiding schedule as appropriate [...] unpredictable and confused. Discharge Plan: TRUDI Anderson psych stated [facility] was sent a referral and they have declined. Waiting input from psych. Hvac Estimator will continue to follow for any discharge needs. - Lesia Caba RN 07/11/24 12:06 PM Late entery: CN met with patient, Kari, and sister Earlene on Tuesday afternoon. and sister want the patient to go to a Traumatic Brain Injury rehab unit. CN began researching TBI Rehab units in the area, reported back to the and sister after finding TBI rehab units in [facility]. Sister asked for me to look in [facility]. and sister do not want any referrals send until they are able to meet with the neurologist again, sister wants to look into the TBI units in the [facility] herself before any referrals are sent. - Lesia Caba RN 07/12/24 8:11 AM Referral sent to [facility] to assess for admission to that center's inpatient psychiatric unit. After a clinical review and screening was completed [facility] assessed patient as inappropriate for treatment at that facility. Will alert care team. - NANCY Martines 07/11/24 10:33 AM DISCHARGE PLANNING NOTE Updates to [facility] [phone] Problem: Safety Goal: Patient will be injury free during hospitalization Description: INTERVENTIONS: 1. Assess patient's risk for falls and implement fall prevention plan of care per policy 2. Provide and maintain a safe environment 3. Proper use of double Identifiers 4. Medication administration using the 5 rights 5. Hand hygiene 6. Specimens are labeled at the bedside 7. Instruct patient/ patient sales training representative about use of safety devices 8. Include patient/ patient sales training representative in decisions related to safety Outcome: Progressing Note: Evaluation of progress towards goal: Patient remains injury free at present time. Safe environment provided and maintained. Medications administered using 5 rights. Problem: Knowledge Deficit Goal: Patient/patient sales training representative demonstrates understanding of disease process, treatment [...] Collaborate with ancillary departments 14. Include patient/patient sales training representative in decisions related to anxiety Outcome: Progressing Note: Evaluation of progress towards goal: Patient has at bedside assisting with anxiety. Problem: Moderate - High Risk Fall Score Description: Gallegos Fall Score of =/> 25 or indicated by [facility] Assessment Goal: Patient should be free from fall Description: Interventions: 1. Maxbass to environment 2. Hourly rounds addressing the [...] non-skid footwear 11. Teach patient and patient sales training representative to maintain environment for safety and [...] (cane, walker) within reach 19. Request patient sales training representative bring adaptive equipment/mobility aids from home or obtain and provide as needed 20. Consult pharmacy regarding effects of med's affecting mobility, cognition, and alternatives 21. Obtain physician order for PT if risk factors associated with mobility are present 22. Obtain physician order for OT as appropriate 23. Utilize diversional activities 24. Educate patient and patient sales training representative how to maintain a safe environment during visitation times (notify nurse prior to leaving bedside) 25. Consider appropriateness of medical or non-medical officer psychiatry 26. Set up voiding schedule as appropriate [...] injury from restraints (Restraint for Interference with Law Firm Partner) Description: INTERVENTIONS: 1. Determine that other, less [...] Free from restraint(s) (Restraint for Interference with Law Firm Partner) Description: INTERVENTIONS: 1. ONCE/SHIFT or MINIMUM Q12H: [...] elimination needs BEHAVIORAL RESTRAINTS PROVIDER ONE HOUR [id number] EVALUATION NOTE Estella Jeffery was evaluated on [...] at the bedside 7. Instruct patient/ patient sales training representative about use of safety devices 8. Include patient/ patient sales training representative in decisions related to safety Outcome: [...] hygiene technique. 7. Identify and instruct patient/patient sales training representative in use of appropriate isolation precautions for identified infection/symptoms. 8. Provide and discuss with patient/patient sales training representative on educational MDRO sheet. 9. Encourage and monitor nutritional status daily and consult hardboard factory worker if indicated. 10. Implement neutropenic guidelines as needed. Outcome: Progressing Note: Evaluation of progress towards goal: Patient remains free of any signs of infection. Signs and symptoms being monitor such as fevers, chills, warm/red areas. Problem: Knowledge Deficit Goal: Patient/patient sales training representative demonstrates understanding of disease process, treatment [...] Collaborate with ancillary departments 14. Include patient/patient sales training representative in decisions related to anxiety Outcome: Progressing Note: Evaluation of progress towards goal: Patient's anxiety is at manageable level. Problem: Safety - Medical Restraint Goal: Remains free of injury from restraints (Restraint for Interference with Law Firm Partner) Description: INTERVENTIONS: 1. Determine that other, less [...] Free from restraint(s) (Restraint for Interference with Law Firm Partner) Description: INTERVENTIONS: 1. ONCE/SHIFT or MINIMUM Q12H: [...] on patient's door 9. Provide patient/ patient sales training representative with isolation education. Outcome: Progressing Note: Evaluation of progress towards goal: Discard single-use items. Clean reusable equipment. Wear gloves for direct and indirect patient care. Wash hands before and after care of patient. Problem: Moderate - High Risk Fall Score Description: Gallegos Fall Score of =/> 25 or [facility] Goal: Patient should be free from fall Description: Interventions: 1. Maxbass to environment 2. Hourly rounds addressing the [...] non-skid footwear 11. Teach patient and patient sales training representative to maintain environment for safety and [...] (cane, walker) within reach 19. Request patient sales training representative bring adaptive equipment/mobility aids from home or obtain and provide as needed 20. Consult pharmacy regarding effects of med's affecting mobility, cognition, and alternatives 21. Obtain physician order for PT if risk factors associated with mobility are present 22. Obtain physician order for OT as appropriate 23. Utilize diversional activities 24. Educate patient and patient sales training representative how to maintain a safe environment during visitation times (notify nurse prior to leaving bedside) 25. Consider appropriateness of medical or non-medical officer psychiatry 26. Set up voiding schedule as appropriate [...] at the bedside 7. Instruct patient/ patient sales training representative about use of safety devices 8. Include patient/ patient sales training representative in decisions related to safety Outcome: [...] hygiene technique. 7. Identify and instruct patient/patient sales training representative in use of appropriate isolation precautions for identified infection/symptoms. 8. Provide and discuss with patient/patient sales training representative on educational MDRO sheet. 9. Encourage and monitor nutritional status daily and consult hardboard factory worker if indicated. 10. Implement neutropenic guidelines as needed. Outcome: Progressing Note: Evaluation of progress towards goal: patient remains afebrile at this time Problem: Knowledge Deficit Goal: Patient/patient sales training representative demonstrates understanding of disease process, treatment [...] Collaborate with ancillary departments 14. Include patient/patient sales training representative in decisions related to anxiety Outcome: Progressing Note: Evaluation of progress towards goal: discussed w/ patient coping strategies & dietary changes that may aid in controlling stress & anxiety. Problem: Safety - Medical Restraint Goal: Remains free of injury from restraints (Restraint for Interference with Law Firm Partner) Description: INTERVENTIONS: 1. Determine that other, less [...] Free from restraint(s) (Restraint for Interference with Law Firm Partner) Description: INTERVENTIONS: 1. ONCE/SHIFT or MINIMUM Q12H: [...] on patient's door 9. Provide patient/ patient sales training representative with isolation education. Outcome: Progressing Note: Evaluation of progress towards goal: patient remains afebrile at this time Problem: Moderate - High Risk Fall Score Description: Gallegos Fall Score of =/> 25 or indicated by [facility] Assessment Goal: Patient should be free from fall Description: Interventions: 1. Maxbass to environment 2. Hourly rounds addressing the [...] non-skid footwear 11. Teach patient and patient sales training representative to maintain environment for safety and [...] (cane, walker) within reach 19. Request patient sales training representative bring adaptive equipment/mobility aids from home or obtain and provide as needed 20. Consult pharmacy regarding effects of med's affecting mobility, cognition, and alternatives 21. Obtain physician order for PT if risk factors associated with mobility are present 22. Obtain physician order for OT as appropriate 23. Utilize diversional activities 24. Educate patient and patient sales training representative how to maintain a safe environment during visitation times (notify nurse prior to leaving bedside) 25. Consider appropriateness of medical or non-medical officer psychiatry 26. Set up voiding schedule as appropriate [...] CN discussed case with colin Solorio SW Hvac Estimator will continue to follow for any discharge [...] at the bedside 7. Instruct patient/ patient sales training representative about use of safety devices 8. Include patient/ patient sales training representative in decisions related to safety Outcome: [...] hygiene technique. 7. Identify and instruct patient/patient sales training representative in use of appropriate isolation precautions for identified infection/symptoms. 8. Provide and discuss with patient/patient sales training representative on educational MDRO sheet. 9. Encourage and monitor nutritional status daily and consult hardboard factory worker if indicated. 10. Implement neutropenic guidelines as needed. Outcome: Progressing Note: Evaluation of progress towards goal: Skin integrity remains in stable condition; remains w/o ss of infection, fever, pain, or increased discomfort. Problem: Knowledge Deficit Goal: Patient/patient sales training representative demonstrates understanding of disease process, treatment [...] of 0 - 24 or indicated by [facility] Assessment Goal: Patient should be free from fall Description: Interventions: 1. Maxbass to environment 2. Hourly rounds addressing the [...] non-skid footwear 11. Teach patient and patient sales training representative to maintain environment for safety and [...] Collaborate with ancillary departments 14. Include patient/patient sales training representative in decisions related to anxiety Outcome: [...] on patient's door 9. Provide patient/ patient sales training representative with isolation education. Outcome: Progressing Note: Evaluation of progress towards goal: Skin integrity remains in stable condition; remains w/o ss of infection, fever, pain, or increased discomfort. Problem: Moderate - High Risk Fall Score Description: Gallegos Fall Score of =/> 25 or indicated by [facility] Assessment Goal: Patient should be free from fall Description: Interventions: 1. Maxbass to environment 2. Hourly rounds addressing the [...] non-skid footwear 11. Teach patient and patient sales training representative to maintain environment for safety and [...] (cane, walker) within reach 19. Request patient sales training representative bring adaptive equipment/mobility aids from home or obtain and provide as needed 20. Consult pharmacy regarding effects of med's affecting mobility, cognition, and alternatives 21. Obtain physician order for PT if risk factors associated with mobility are present 22. Obtain physician order for OT as appropriate 23. Utilize diversional activities 24. Educate patient and patient sales training representative how to maintain a safe environment during visitation times (notify nurse prior to leaving bedside) 25. Consider appropriateness of medical or non-medical officer psychiatry 26. Set up voiding schedule as appropriate (every 2 hours) Outcome: Progressing Note: Evaluation of progress towards goal: Call light within reach. Remains free of fall or injury. Environment free of clutter. BEHAVIORAL RESTRAINTS PROVIDER ONE HOUR [id number] EVALUATION NOTE Estella Jeffery was evaluated on [...] at the bedside 7. Instruct patient/ patient sales training representative about use of safety devices 8. Include patient/ patient sales training representative in decisions related to safety Outcome: [...] hygiene technique. 7. Identify and instruct patient/patient sales training representative in use of appropriate isolation precautions for identified infection/symptoms. 8. Provide and discuss with patient/patient sales training representative on educational MDRO sheet. 9. Encourage and monitor nutritional status daily and consult hardboard factory worker if indicated. 10. Implement neutropenic guidelines as needed. Outcome: Progressing Note: Evaluation of progress towards goal: patient remains afebrile at this time Problem: Knowledge Deficit Goal: Patient/patient sales training representative demonstrates understanding of disease process, treatment [...] of 0 - 24 or indicated by [facility] Assessment Goal: Patient should be free from fall Description: Interventions: 1. Maxbass to environment 2. Hourly rounds addressing the [...] non-skid footwear 11. Teach patient and patient sales training representative to maintain environment for safety and [...] Collaborate with ancillary departments 14. Include patient/patient sales training representative in decisions related to anxiety Outcome: [...] injury from restraints (Restraint for Interference with Law Firm Partner) Description: INTERVENTIONS: 1. Determine that other, less [...] Free from restraint(s) (Restraint for Interference with Law Firm Partner) Description: INTERVENTIONS: 1. ONCE/SHIFT or MINIMUM Q12H: [...] on patient's door 9. Provide patient/ patient sales training representative with isolation education. Outcome: Progressing Note: Evaluation of progress towards goal: patient remains afebrile at this time DISCHARGE PLANNING NOTE Clinical updates including [facility] (P# [phone] ; F# [phone]) via [employer] Query Response Note CDI QUERY TEXT: Altered [...] . Thank you, Ethel Bueno RN, CDI [email or web address] The patient's Clinical Indicators include: As above CDI RESPONSE TEXT: Patient has progression of dementia causing agitation, no evidence of metabolic or toxic encephalopathy. Query created by: Ethel Bueno on 07/09/2024 5:42 AM Electronically signed by: Lonnie Baker MD 07/09/2024 3:22 PM DISCHARGE PLANNING NOTE Referral sent to [facility]. (P# [phone] ; F# [phone]) via [employer] DISCHARGE PLANNING NOTE Per RN during discharge transition rounds, barriers to discharge are: Needs MRI with sedation, LP with sedation, non-violent restraints, confused, restless, and disoriented, psych needs to see Discharge Plan: TBD. Planning placement or inpatient behavioral unit. CN does not believe it is safe for patient to return home. Psych SW following. Hvac Estimator will continue to follow for any discharge [...] at the bedside 7. Instruct patient/ patient sales training representative about use of safety devices 8. Include patient/ patient sales training representative in decisions related to safety Outcome: [...] hygiene technique. 7. Identify and instruct patient/patient sales training representative in use of appropriate isolation precautions for identified infection/symptoms. 8. Provide and discuss with patient/patient sales training representative on educational MDRO sheet. 9. Encourage and monitor nutritional status daily and consult hardboard factory worker if indicated. 10. Implement neutropenic guidelines as needed. Outcome: Progressing Note: Evaluation of progress towards goal: monitor s/s of infection Problem: Knowledge Deficit Goal: Patient/patient sales training representative demonstrates understanding of disease process, treatment [...] of 0 - 24 or indicated by [facility] Assessment Goal: Patient should be free from fall Description: Interventions: 1. Maxbass to environment 2. Hourly rounds addressing the [...] non-skid footwear 11. Teach patient and patient sales training representative to maintain environment for safety and [...] Collaborate with ancillary departments 14. Include patient/patient sales training representative in decisions related to anxiety Outcome: [...] injury from restraints (Restraint for Interference with Law Firm Partner) Description: INTERVENTIONS: 1. Determine that other, less [...] Free from restraint(s) (Restraint for Interference with Law Firm Partner) Description: INTERVENTIONS: 1. ONCE/SHIFT or MINIMUM Q12H: [...] hourly rounding BEHAVIORAL RESTRAINTS PROVIDER ONE HOUR [id number] EVALUATION NOTE Estella Jeffery was evaluated on [...] restraint/seclusion order: No Jackson Peterson PA-C 07/08/24 [id number] NIGHT07/09/24-3:31 AM Called to bedside after patient [...] PPH NIGHT BEHAVIORAL RESTRAINTS PROVIDER ONE HOUR [id number] EVALUATION NOTE Estella Jeffery was evaluated on [...] at the bedside 7. Instruct patient/ patient sales training representative about use of safety devices 8. Include patient/ patient sales training representative in decisions related to safety Outcome: [...] hygiene technique. 7. Identify and instruct patient/patient sales training representative in use of appropriate isolation precautions for identified infection/symptoms. 8. Provide and discuss with patient/patient sales training representative on educational MDRO sheet. 9. Encourage and monitor nutritional status daily and consult hardboard factory worker if indicated. 10. Implement neutropenic guidelines as needed. Outcome: Progressing Note: Evaluation of progress towards goal: Patient has no infection at this time. Problem: Knowledge Deficit Goal: Patient/patient sales training representative demonstrates understanding of disease process, treatment [...] of 0 - 24 or indicated by [facility] Assessment Goal: Patient should be free from fall Description: Interventions: 1. Maxbass to environment 2. Hourly rounds addressing the [...] non-skid footwear 11. Teach patient and patient sales training representative to maintain environment for safety and [...] Collaborate with ancillary departments 14. Include patient/patient sales training representative in decisions related to anxiety Outcome: [...] at the bedside 7. Instruct patient/ patient sales training representative about use of safety devices 8. Include patient/ patient sales training representative in decisions related to safety Outcome: [...] hygiene technique. 7. Identify and instruct patient/patient sales training representative in use of appropriate isolation precautions for identified infection/symptoms. 8. Provide and discuss with patient/patient sales training representative on educational MDRO sheet. 9. Encourage and monitor nutritional status daily and consult hardboard factory worker if indicated. 10. Implement neutropenic guidelines as needed. Outcome: Progressing Note: Evaluation of progress towards goal: monitor s/s of infection, monitor labs, standard precautions Problem: Knowledge Deficit Goal: Patient/patient sales training representative demonstrates understanding of disease process, treatment [...] of 0 - 24 or indicated by [facility] Assessment Goal: Patient should be free from fall Description: Interventions: 1. Maxbass to environment 2. Hourly rounds addressing the [...] non-skid footwear 11. Teach patient and patient sales training representative to maintain environment for safety and [...] at the bedside 7. Instruct patient/ patient sales training representative about use of safety devices 8. Include patient/ patient sales training representative in decisions related to safety Outcome: [...] hygiene technique. 7. Identify and instruct patient/patient sales training representative in use of appropriate isolation precautions for identified infection/symptoms. 8. Provide and discuss with patient/patient sales training representative on educational MDRO sheet. 9. Encourage and monitor nutritional status daily and consult hardboard factory worker if indicated. 10. Implement neutropenic guidelines as needed. Outcome: Progressing Note: Evaluation of progress towards goal: Patient remains free of any signs of infection. Signs and symptoms being monitor such as fevers, chills, warm/red areas. Problem: Knowledge Deficit Goal: Patient/patient sales training representative demonstrates understanding of disease process, treatment [...] of 0 - 24 or indicated by [facility] Assessment Goal: Patient should be free from fall Description: Interventions: 1. Maxbass to environment 2. Hourly rounds addressing the [...] non-skid footwear 11. Teach patient and patient sales training representative to maintain environment for safety and [...] Description: INTERVENTIONS: 1. Encourage patient or legal sales training representative to report early pain and ask [...] per policy 9. Teach patient or legal sales training representative interventions for comforting Outcome: Completed Note: Evaluation of progress towards goal: Patient has no complaints of pain. Reassessed per policy. An attempt was made to interview the patient today in the presence of his . The patient refused and asked the script writer to leave stating that he does not want a psychiatric evaluation. Psychiatry will sign off. Images from the original note were not included. DISCHARGE PLANNING NOTE Patient Support Specialist met with patient, introduced self, and explained role. Patient educated on safe discharge plan. Pt admitted 07/06/2024 with Dementia with behavioral disturbance ([facility]) [F03.918] At risk for long QT syndrome [...] medication assistance resources. PCP: JAE LOPEZ MD Pharmacy:[facility] PCP and pharmacy confirmed with [...] 07/06/24 11:02 AM documented in this encounter [facility] 07-22-2024 Nurse Note AVS discussed with patient and family, no further questions about discharge. No further needs identified. Patient taken downstairs by wheelchair to be driven home by . Patient still off unit at this time 11:58 s/p sedated MRI & LP procedure. Per neurologist, Dr Johnson, patient needs to remain flat 1-2hrs & may have regular diet. Patient Support Specialist awaiting patient return to unit & per report 1:1 sitter remains at patient bedside. documented in this encounter [facility] 07-22-2024 Plan of care note Problem: Safety [...] at the bedside 7. Instruct patient/ patient sales training representative about use of safety devices 8. Include patient/ patient sales training representative in decisions related to safety Outcome: Progressing Note: Evaluation of progress towards goal: pt remains free from injury. Family at bedside. Problem: Knowledge Deficit Goal: Patient/patient sales training representative demonstrates understanding of disease process, treatment [...] Score of =/> 25 or indicated by [facility] Assessment Goal: Patient should be free from fall Description: Interventions: 1. Maxbass to environment 2. Hourly rounds addressing the [...] non-skid footwear 11. Teach patient and patient sales training representative to maintain environment for safety and [...] (cane, walker) within reach 19. Request patient sales training representative bring adaptive equipment/mobility aids from home or obtain and provide as needed 20. Consult pharmacy regarding effects of med's affecting mobility, cognition, and alternatives 21. Obtain physician order for PT if risk factors associated with mobility are present 22. Obtain physician order for OT as appropriate 23. Utilize diversional activities 24. Educate patient and patient sales training representative how to maintain a safe environment during visitation times (notify nurse prior to leaving bedside) 25. Consider appropriateness of medical or non-medical officer psychiatry 26. Set up voiding schedule as appropriate (every 2 hours) Outcome: Progressing Note: Evaluation of progress towards goal: pt remains free from falls. Fall precautions in place and family at bedside Problem: Moderate - High Risk Fall Score Description: Gallegos Fall Score of =/> 25 or indicated by [facility] Assessment Goal: Patient should be free from fall Description: Interventions: 1. Maxbass to environment 2. Hourly rounds addressing the [...] non-skid footwear 11. Teach patient and patient sales training representative to maintain environment for safety and [...] (cane, walker) within reach 19. Request patient sales training representative bring adaptive equipment/mobility aids from home or obtain and provide as needed 20. Consult pharmacy regarding effects of med's affecting mobility, cognition, and alternatives 21. Obtain physician order for PT if risk factors associated with mobility are present 22. Obtain physician order for OT as appropriate 23. Utilize diversional activities 24. Educate patient and patient sales training representative how to maintain a safe environment during visitation times (notify nurse prior to leaving bedside) 25. Consider appropriateness of medical or non-medical officer psychiatry 26. Set up voiding schedule as appropriate (every 2 hours) Outcome: Progressing Note: Evaluation of progress towards goal: pt remains free from falls. Fall precautions in place and family at bedside [facility] 07-21-2024 Progress note Formatting of t his note might be different from the original. DISCHARGE PLANNING NOTE Patient Support Specialist spoke with RN KAY Graf and with wire charger Mylena about current situation regarding appeal decision and DC plan to home with outpatient services. Patient Support Specialist placed a call to the who was in the patient's room due to the questions she had re: the discharge plan. Patient Support Specialist spoke with , Kari on 07/21/24 at 1325. Patient Support Specialist reviewed Eduardo's DC Appeal Determination Notification with the who confirmed that she had received a voicemail from [facility] this morning. Patient Support Specialist explained that Eduardo had agreed with the termination of hospital services after having reviewed the uploaded clinical documents from this hospitalization that script writer had sent to them yesterday. expressed verbal understanding to of Eduardo's decision. Patient Support Specialist explained that patient's financial liability would begin at Noon on 07/22/24 and offered our care navigation assistance with obtaining transportation to home. had questions about why referrals were not made to half-way facilities that family had now chosen, [facility] and [facility] ([facility]). Patient Support Specialist explained to the that the patient did not meet the clinical criteria this time for a half-way/rehab facility level of care and reminded her that a discussion about this took place this past week/yesterday with the treatment team. explained that she never agreed to take her home and her and her family now want SNF placement. Patient Support Specialist continued to explain to the process of [...] prior to bringing him to the hospital. Patient Support Specialist offered supportive listening to the and also offered for her to connect with patient's PCP, Dr. Lopez after she gets her home for resources. Patient Support Specialist also discussed the outpatient TBI clinic appointment that was being discussed yesterday and that information would be included on patient's after visit summary. Patient Support Specialist explained that if was not going to make arrangements to take patient home by noon on 07/22, that patient's financial responsibility of $2640.00 per day would begin. expressed verbal understanding to script writer. Patient Support Specialist emailed financial responsibility form with instruction to wire chargerCm (and ccioana'd today's RN Lesia Felton for awareness) for bedside delivery today. is aware of pending paper copy delivery of this form. - NELLI GLEZ YOUTH CARE WORKER CARE NAVIGATION 07/21/24 2:11 PM [facility] 07-21-2024 Progress note Formatting of t his note might be different from the original. DISCHARGE PLANNING NOTE We have received DC Appeal Determination Notification from Daryl and Daryl has agreed with the termination of services. Beneficiary liability begins 07.22.2024 by Noon. Beneficiary and/or beneficiary sales training representative were to be notified of determination via phone call. Eduardo determination notification rec'd at 1032 and letter rec'd 1128 were received by script writer via fax. Patient Support Specialist uploaded documents to document list. Documentation updated. Patient Support Specialist received forwarded voice mail 07/21/24 at 1032 from Eduardo Duran's Immediate Advocacy Department , who had left message on Care Navigation Department voice mail at [phone] on 07/20/24, stating he was representing patient's family who had called Eduarod asking 1) why denial reason wasn't given re: transfer to another care facility and 2) if the preferred facility by family was able to accept. Reference Case # given from Roger [id number]. Patient Support Specialist attempted to call Roger back on 07/21/24 at 1214 and script writer rec'd auto message from Eduardo which stated only live phone calls with Eduardo are Tuesday thru Tuesday. Patient Support Specialist left voicemail citing reference case # [id number]. Patient Support Specialist stated reason for return phone call and requested call back from Roger. - NELLI GLEZ YOUTH CARE WORKER CARE NAVIGATION 07/21/24 12:37 PM [facility] 07-21-2024 Plan of care note Problem: [...] at the bedside 7. Instruct patient/ patient sales training representative about use of safety devices 8. Include patient/ patient sales training representative in decisions related to safety Outcome: Progressing Note: Evaluation of progress towards goal: Pain will be adequately controlled to allow for rest and adl's Problem: Knowledge Deficit Goal: Patient/patient sales training representative demonstrates understanding of disease process, treatment [...] Score of =/> 25 or indicated by [facility] Assessment Goal: Patient should be free from fall Description: Interventions: 1. Maxbass to environment 2. Hourly rounds addressing the [...] non-skid footwear 11. Teach patient and patient sales training representative to maintain environment for safety and [...] (cane, walker) within reach 19. Request patient sales training representative bring adaptive equipment/mobility aids from home or obtain and provide as needed 20. Consult pharmacy regarding effects of med's affecting mobility, cognition, and alternatives 21. Obtain physician order for PT if risk factors associated with mobility are present 22. Obtain physician order for OT as appropriate 23. Utilize diversional activities 24. Educate patient and patient sales training representative how to maintain a safe environment during visitation times (notify nurse prior to leaving bedside) 25. Consider appropriateness of medical or non-medical officer psychiatry 26. Set up voiding schedule as appropriate (every 2 hours) Outcome: Progressing Note: Evaluation of progress towards goal: fall bundle [facility] 07-21-2024 History of Present illness Narrative Images from the original note were not included. 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 [facility] General Neurology Consultation Progress Note Consult Neurology Service: [phone] Primary Team: Meng Lamarist Chief Concern and Reason for Consultation: cognitive decline Interval History: Estella Jeffery is a 59 y.o. year old male for whom Neurology was consulted for chief concern of cognitive decline. He has history of hyperlipidemia, complex sleep apnea, GERD, type 2 diabetes, major neurocognitive disorder with biomarkers confirmed early onset Alzheimer's disease (established at [facility] in October 2022), and epilepsy from [...] and proprioception throughout. Cerebellar: Able to do [id number] bilaterally; normal coordination Gait and station: Deferred. [...] confirmed early onset Alzheimer's disease (established at [facility] in October 2022), and epilepsy from [...] to Tuesday 12-1:00 p.m. Primary Neurology service: [phone] Consult neurology service: [phone] Resident Stroke Service: [phone] If the patient belongs to the Stroke [...] from the original note were not included. [facility]OSPITAL[facility] PROGRESS NOTE 07/19/2024 Patient Name: Estella Jeffery : 1965 Code status: Problem List: Principal Problem: Dementia with behavioral disturbance ([facility]) Active Problems: Altered mental status Status post colostomy, follow-up exam ([facility]) Consulting Providers Provider Service Specialty Mina Franks MD Psychiatry Psychiatry Jessica Johnson MD -- Neurology Sonya Astudillo MD Z Physical Medicine and Rehabilitation Physical Medicine & Rehabilitation Chief complaint-behavioral issues 59-year-old male patient with Confirmed early onset Alzheimer's disease established in [facility] October 2022, patient had fall June [...] per family request. I also spoke with [facility] neurology 's office. They said that they are independent office and they do not have resources for transfer or admission to [facility]. They also will not be able [...] from the original note were not included. [facility] HOSPITALIST PROGRESS NOTE 07/18/2024 Patient Name: Estella Jeffery : 1965 Code status: Problem List: Principal Problem: Dementia with behavioral disturbance ([facility]) Active Problems: Altered mental status Status post colostomy, follow-up exam ([facility]) Consulting Providers Provider Service Specialty Mina Franks MD Psychiatry Psychiatry Jessica Johnson MD -- Neurology Sonya Astudillo MD Z Physical Medicine and Rehabilitation Physical Medicine & Rehabilitation Chief complaint-behavioral issues 59-year-old male patient with Confirmed early onset Alzheimer's disease established in [facility] October 2022, patient had fall June [...] today. Patient working with therapies. Going to [facility]. No new weakness. Objective: Last Filed Vitals: [...] left ulnar artery Dementia with behavioral disturbance ([facility]) Altered mental status Status post colostomy, follow-up exam ([facility]) PLAN Cont PT/OT - would recommend inpatient rehabilitation DVT prophylaxis - heparin 5000 units t.i.d. Agitation Seroquel, Depakote Pain management - Tylenol p.r.n. Dementia Aricept Monitor bowel/bladder/skin Per your medical management PQRS measures: I attest and have documented/reviewed all medications in patients chart Electronically signed by Silvestre RODRIGEZRChong 07/17/2024 NUTRITION ADULT FOLLOW UP NUTRITION ASSESSMENT: Patient History: Brief Clinical Summary: Pt transferred and direct admitted to [facility] as a transfer from [facility] for neurological evaluation 2/2 aggressive behavior and hostility. PMH: early-onset dementia, T2DM, GERD, and perforated colon. Biochemical Data, Medical Tests, and Procedures: 07/16, restraints: pt now out of restraints with media arts professor at side Labs: Results from last 3 [...] (H) 05/10/2016 Lab Results Component Value Date [id number] 07/08/2024 Lab Results Component Value Date [...] capsule 500 mg 500 mg oral Q12H [facility] Nichol Heath MD 500 mg at 07/17/24 [...] injection 5,000 Units 5,000 Units subcutaneous Q8H [facility] Nichol Heath MD 5,000 Units at 07/17/24 [...] Nightly Nichol Heath MD 150 mg at 07/16/247 And QUEtiapine (SEROquel) tablet 50 mg 50 [...] Skin (per nursing flow sheets): Skin Color: Meigs; Pale (07/17/24904) Skin Temp: Warm; Dry (07/17/24904) [...] oz) Admit Weight: 83.9 kg (unknown, 06/24) [place] Body Weight: Unknown as no wt on file Weight Changes: No wt since admission 2/2 pt aggression Admit Body Mass Index: Same as current BMI Current Body Mass Index: Body mass index is 30.78 kg/m . Comparative Standards: Estimated Energy Needs: 8182-6774 kcals daily. Method and weight used: 25-32 kcal/kg IBW Estimated Protein Needs: 74-124 grams daily. Method and weight used: 1.2-2g protein/kg IBW Estimated Fluid Needs: 1949-4382 ml daily. Method weight used: 1 ml/kcal Comments: floor needs Malnutrition Status: Malnutrition Present: No NUTRITION DIAGNOSIS: Intake Diagnosis: Predicted suboptimal nutrient intake (NI 5.11.1)--ongoing NUTRITION INTERVENTIONS: Meals and Snacks: Continue per PEDIATRIC PHYSICAL THERAPY ASSISTANT and medical team recommendations Supplements: Will [...] from the original note were not included. [facility]ITAL[facility] PROGRESS NOTE 07/17/2024 Patient Name: Estella Jeffery : 1965 Code status: Problem List: Principal Problem: Dementia with behavioral disturbance ([facility]) Active Problems: Altered mental status Status post colostomy, follow-up exam ([facility]) Consulting Providers Provider Service Specialty Mina Franks MD Psychiatry Psychiatry Jessica Johnson MD -- Neurology Sonya Astudillo MD Z Physical Medicine and Rehabilitation Physical Medicine & Rehabilitation Chief complaint-behavioral issues 59-year-old male patient with Confirmed early onset Alzheimer's disease established in [facility] October 2022, patient had fall June [...] from the original note were not included. [facility] 07/16/2024 Patient Name: Estella Jeffery : 1965 Problem List: Principal Problem: Dementia with behavioral disturbance ([facility]) Active Problems: Altered mental status Status post colostomy, follow-up exam ([facility]) Assessment Rapid onset Dementia with behavioral disturbances [...] Spinal Fluid culture includes gram stain, CSF [[id number]] Collected: 07/10/24 0939 Specimen: Cerebrospinal Fluid Updated: [...] mental status Status post colostomy, follow-up exam ([facility]) SUBJECTIVE Resting in bed, no distress, afebrile [...] left ulnar artery Dementia with behavioral disturbance ([facility]) Altered mental status Status post colostomy, follow-up exam ([facility]) Recommendations/Plan: Continue PT, OT and speech therapy Contact guard assist with gait and transfers Will need 24 hour supervision Fall precautions, status post fall Family education Melatonin to regulate sleep cycle Awaiting on placement Will follow up with you for rehab needs Sonya Astudillo MD Images from the original note were not included. [facility] 07/15/2024 Patient Name: Estella Jeffery : 1965 Problem List: Principal Problem: Dementia with behavioral disturbance ([facility]) Active Problems: Altered mental status Status post colostomy, follow-up exam ([facility]) Assessment Rapid onset Dementia with behavioral disturbances [...] Spinal Fluid culture includes gram stain, CSF [[id number]] Collected: 07/10/24 0939 Specimen: Cerebrospinal Fluid Updated: 07/15/24 0656 Gram Stain Result WHITE BLOOD CELLS PRESENT NO ORGANISMS SEEN ON CONCENTRATED SMEAR Culture NO GROWTH 5 DAYS Physical Medicine and Rehabilitation Daily Progress Note Today's Date and Time: 07/15/2024, 8:01 AM Subjective/Chief complaint: Dementia with behavioral disturbance ([facility]) Principal Problem: Dementia with behavioral disturbance ([facility]) Active Problems: Altered mental status Status post colostomy, follow-up exam ([facility]) SUBJECTIVE Resting in bed, no distress, Brief [...] left ulnar artery Dementia with behavioral disturbance ([facility]) Altered mental status Status post colostomy, follow-up exam ([facility]) Recommendations/Plan: Continue PT, OT and speech therapy Contact guard assist with gait and transfers Will need 24 hour supervision Fall precautions, status post fall Family education Melatonin to regulate sleep cycle Awaiting on placement Will follow up with you for rehab needs Sonya Astudillo MD Images from the original note were not included. [facility] 2024 Patient Name: Estella Jeffery : 1965 Problem List: Principal Problem: Dementia with behavioral disturbance ([facility]) Active Problems: Altered mental status Status post colostomy, follow-up exam ([facility]) Assessment Rapid onset Dementia with behavioral disturbances [...] Spinal Fluid culture includes gram stain, CSF [[id number]] Collected: 07/10/24 0939 Specimen: Cerebrospinal Fluid Updated: 07/14/24901 Gram Stain Result WHITE BLOOD CELLS PRESENT NO ORGANISMS SEEN ON CONCENTRATED SMEAR Culture NO GROWTH 4 DAYS Physical Medicine and Rehabilitation Daily Progress Note Today's Date and Time: 2024, 8:23 AM Subjective/Chief complaint: Dementia with behavioral disturbance ([facility]) Principal Problem: Dementia with behavioral disturbance ([facility]) Active Problems: Altered mental status Status post colostomy, follow-up exam ([facility]) SUBJECTIVE Resting in bed, no distress, Brief [...] No results found for: ALB , PROT @[facility])@ No results found for: CRP No [...] left ulnar artery Dementia with behavioral disturbance ([facility]) Altered mental status Status post colostomy, follow-up exam ([facility]) Recommendations/Plan: Continue PT, OT and speech therapy Contact guard assist with gait and transfers Will need 24 hour supervision Fall precautions, status post fall Family education Melatonin to regulate sleep cycle Awaiting on placement Will follow up with you for rehab needs Sonya Astudillo MD Images from the original note were not included. [facility] [place] 07/13/2024 Patient Name: Estella Jeffery : 1965 Problem List: Principal Problem: Dementia with behavioral disturbance ([facility]) Active Problems: Altered mental status Status post colostomy, follow-up exam ([facility]) Assessment Rapid onset Dementia with behavioral disturbances [...] Spinal Fluid culture includes gram stain, CSF [[id number]] Collected: 07/10/24 0939 Specimen: Cerebrospinal Fluid Updated: 07/13/24 0730 Gram Stain Result WHITE BLOOD CELLS PRESENT NO ORGANISMS SEEN ON CONCENTRATED SMEAR Culture NO GROWTH 3 DAYS Physical Medicine and Rehabilitation Daily Progress Note Today's Date and Time: 07/13/2024, 9:28 AM Subjective/Chief complaint: Dementia with behavioral disturbance (CMS-HCC) Principal Problem: Dementia with behavioral disturbance ([facility]) Active Problems: Altered mental status Status post colostomy, follow-up exam ([facility]) SUBJECTIVE Resting in bed, denies any chest [...] left ulnar artery Dementia with behavioral disturbance ([facility]) Altered mental status Status post colostomy, follow-up exam ([facility]) Recommendations/Plan: Continue PT, OT and speech therapy Contact guard assist with gait and transfers Will benefit from inpatient rehab, TBI Unit Will need 24 hour supervision Fall precautions, status post fall Family education Melatonin to regulate sleep cycle Will follow up with you for rehab needs Sonya Astudillo MD Images from the original note were not included. [facility] 07/12/2024 Patient Name: Estella Jeffery : 1965 Problem List: Principal Problem: Dementia with behavioral disturbance ([facility]) Active Problems: Altered mental status Status post colostomy, follow-up exam ([facility]) Assessment Rapid onset Dementia with behavioral disturbances [...] Spinal Fluid culture includes gram stain, CSF [[id number]] Collected: 07/10/24 0939 Specimen: Cerebrospinal Fluid Updated: 07/12/24 0736 Gram Stain Result WHITE BLOOD CELLS PRESENT NO ORGANISMS SEEN ON CONCENTRATED SMEAR Culture NO GROWTH 2 DAYS Images from the original note were not included. [facility] Neurology General Neurology Consultation Progress Note Consult Neurology Service: [phone] Chief Complaint and Reason for Consultation: Decline [...] with complete remission. He follows up with [facility] Neurology and had underwent a heavy metal screen, [facility] analysis, MRI 2021 showing severe generalized [...] decline, Patient had presented to ED in [place] June 18 after waking up not oriented and delusional. Then June 25 he woke up again not knowing where he is delusional thinking his sister was an intruder so he was brought to [facility] and discharged later that evening. He was seen by child welfare social worker referred to a mental health center and per family his mental status had worsened and they felt he was being overmedicated with Benadryl. So family decided to discharge home from the hospital and took him to [facility] 07/03 for hallucinations/agitation/paranoi a and family [...] so patient was transferred to [facility] for higher level of care. Interval History: [...] markers confirmed early onset Alzheimer's established in [facility] September 2022 (Dr. Lemuel Guerra) but reportedly functional at home per family, in addition to hyperlipidemia, GERD, T2DM. Patient was transferred found [facility] for higher level of care and workup of sharp decline in cognition since May 2024. Patient had presented multiple times to the ED and admitted [facility] for delusional thinking/hallucinations/agitatio n. Impression: [...] arise. Arnulfo Haley MD PGY2 Neurology [facility] Seen and staffed with: Dr. Nails This patient is being followed by the Neurology Resident service. Contact attending directly during these hours: Tuesday to 7:30-8:30 A.M. to Tuesday 12-1:00 p.m. Primary Neurology service: [phone] Consult neurology service: [phone] Resident Stroke Service: [phone] If the patient belongs to the Stroke [...] any question or concerns. Zach Nails MD. Binder And Wrapper Packer of Neurology [facility] Images from the original note were not included. [facility] [place] 07/11/2024 Patient Name: Estella Jeffery : 1965 [...] discharge, currently working on disposition. Refused from [address] [place] [address] DVT prophylaxis: Heparin Code Status: Full Plan [...] COMPARISON: July 03, 2024 brain MRI from [facility] Procedure: Multiplanar, multisequence imaging performed [...] and cranio-cervical junction. Flow voids documented in apache of [place] and dural venous sinuses. No [...] Spinal Fluid culture includes gram stain, CSF [[id number]] Collected: 07/10/24 0939 Specimen: Cerebrospinal Fluid Updated: 07/11/24 0718 Gram Stain Result WHITE BLOOD CELLS PRESENT NO ORGANISMS SEEN ON CONCENTRATED SMEAR Culture NO GROWTH <24 HRS Images from the original note were not included. [facility] Neurology General Neurology Consultation Progress Note Consult Neurology Service: [phone] Chief Complaint and Reason for Consultation: Decline [...] with complete remission. He follows up with [facility] Neu[facility] and had underwent a heavy [...] decline, Patient had presented to ED in [place] June 18 after waking up not oriented and delusional. Then June 25 he woke up again not knowing where he is delusional thinking his sister was an intruder so he was brought to [facility] and discharged later that evening. He was seen by child welfare social worker referred to a mental health center and per family his mental status had worsened and they felt he was being overmedicated with Benadryl. So family decided to discharge home from the hospital and took him to [facility] 07/03 for hallucinations/agitation/paranoi a and family [...] so patient was transferred to [facility] for higher level of care. Interval History: [...] markers confirmed early onset Alzheimer's established in [facility] September 2022 (Dr. Lemuel Guerra) but reportedly functional at home per family, in addition to hyperlipidemia, GERD, T2DM. Patient was transferred found [facility] for higher level of care and workup of sharp decline in cognition since May 2024. Patient had presented multiple times to the ED and admitted [facility] for delusional thinking/hallucinations/agitatio n. Impression: [...] follow. Arnulfo Haley MD PGY2 Neurology [facility] Seen and staffed with: Dr. Nails This patient is being followed by the Neurology Resident service. Contact attending directly during these hours: Tuesday to 7:30-8:30 A.M. to Tuesday 12-1:00 p.m. Primary Neurology service: [phone] Consult neurology service: [phone] Resident Stroke Service: [phone] If the patient belongs to the Stroke [...] evaluation and appropriate disposition. Zach Nails MD. Binder And Wrapper Packer of Neurology [facility] Images from the original note were not included. [facility] 07/10/2024 Patient Name: Estella Jeffery : 1965 Problem List: Principal Problem: Dementia with behavioral disturbance ([facility]) Active Problems: Altered mental status Assessment Rapid [...] COMPARISON: July 03, 2024 brain MRI from [facility] Procedure: Multiplanar, multisequence imaging performed [...] and cranio-cervical junction. Flow voids documented in apache of [place] and dural venous sinuses. No [...] Spinal Fluid culture includes gram stain, CSF [[id number]] Resulted: 07/10/24 1055 Updated: 07/10/24 1148 Images from the original note were not included. [facility] 07/09/2024 Patient Name: Estella Jeffery : 1965 [...] brain and lumbar puncture under sedation Continue [place] Patient continues to have episodes of agitation [...] from the original note were not included. [facility] Neurology General Neurology Consultation Progress Note Consult Neurology Service: [phone] Chief Complaint and Reason for Consultation: Decline [...] with complete remission. He follows up with [facility] Neurology and had underwent a heavy [...] decline, Patient had presented to ED in [place] June 18 after waking up not oriented and delusional. Then June 25 he woke up again not knowing where he is delusional thinking his sister was an intruder so he was brought to [facility] and discharged later that evening. He was seen by child welfare social worker referred to a mental health center and per family his mental status had worsened and they felt he was being overmedicated with Benadryl. So family decided to discharge home from the hospital and took him to [facility] 07/03 for hallucinations/agitation/paranoi a and family [...] so patient was transferred to [facility] for higher level of care. Interval History: [...] markers confirmed early onset Alzheimer's established in [facility] September 2022 (Dr. Lemuel Guerra) but reportedly functional at home per family, in addition to hyperlipidemia, GERD, T2DM. Patient was transferred found [facility] for higher level of care and workup of sharp decline in cognition since May 2024. Patient had presented multiple times to the ED and admitted [facility] for delusional thinking/hallucinations/agitatio n. Impression: [...] follow. Arnulfo Haley MD PGY2 Neurology [facility] Seen and staffed with: Dr. Nails This patient is being followed by the Neurology Resident service. Contact attending directly during these hours: Tuesday to 7:30-8:30 A.M. to Tuesday 12-1:00 p.m. Primary Neurology service: [phone] Consult neurology service: [phone] Resident Stroke Service: [phone] If the patient belongs to the Stroke [...] of violent/anger outburst/paranoid behavior. Zach Nails MD. Binder And Wrapper Packer of Neurology [facility] NUTRITION ADULT INITIAL EVALUATION NUTRITION ASSESSMENT: Reason [...] 11/24/2019 Performed by Skyler Bowen MD at [facility] 3YEARS AGO COLOSTOMY CLOSURE Social/ Cognitive/ Economic: Pt in an agitated state and screaming from room. Unable to see pt as RN reports he has been in a very agitated state at the time of RD visit. Brief Clinical Summary: Pt transferred and direct admitted to [facility] as a transfer from [facility] for neurological evaluation 2/2 aggressive behavior [...] (H) 05/10/2016 Lab Results Component Value Date [id number] 526 07/08/2024 Lab Results Component Value Date [...] 15 g 15 g oral PRN Nichol Haeth MD dextrose 50 % in water (D50W) [...] Skin (per nursing flow sheets): Skin Color: Meigs; Pale (07/08/24827) Skin Temp: Warm; Dry (07/08/24827) [...] Weight: Unknown as no wt on file. Waldo Body Weight: 61.8 kg Percent Waldo Body Weight: 136 Weight Changes: No wt's on file to assess Body Mass Index: 30.7 kg^m2 BMI Category: Obese (> or = 30.0) Note: Calculations based on previous wt and ht on file from 06/24 07/22 no anthropometrics on file for this admission. Comparative Standards: Estimated Energy Needs: 3880-5360 kcals daily. Method and weight used: 25-32 kcal/kg IBW Estimated Protein Needs: 74-124 grams daily. Method and weight used: 1.2-2g protein/kg IBW Estimated Fluid Needs: 4686-5598 ml daily. Method weight used: 1 ml/kcal Comments: floor needs Malnutrition Status: Malnutrition Present: No NUTRITION DIAGNOSIS: Intake Diagnosis: Predicted suboptimal nutrient intake (NI 5.11.1) related to self monitoring deficit as evidenced by nursing screen reporting pt eating <50% of normal intake x 2 weeks. NUTRITION INTERVENTIONS: Meals and Snacks: Continue per PEDIATRIC PHYSICAL THERAPY ASSISTANT and medical team recommendations Supplements: Will [...] from the original note were not included. [facility] 07/08/2024 Patient Name: Estella Jeffery : [...] from the original note were not included. [facility] Neurology General Neurology Consultation Progress Note Consult Neurology Service: [phone] Chief Complaint and Reason for Consultation: Decline [...] with complete remission. He follows up with [facility] Neu[facility] and had underwent a heavy [...] decline, Patient had presented to ED in [place] June 18 after waking up not oriented and delusional. Then June 25 he woke up again not knowing where he is delusional thinking his sister was an intruder so he was brought to [facility] and discharged later that evening. He was seen by child welfare social worker referred to a mental health center and per family his mental status had worsened and they felt he was being overmedicated with Benadryl. So family decided to discharge home from the hospital and took him to [facility] 07/03 for hallucinations/agitation/paranoi a and family [...] so patient was transferred to [facility] for higher level of care. Interval History: [...] markers confirmed early onset Alzheimer's established in [facility] September 2022 (Dr. Lemuel Guerra) but reportedly functional at home per family, in addition to hyperlipidemia, GERD, T2DM. Patient was transferred found [facility] for higher level of care and workup of sharp decline in cognition since May 2024. Patient had presented multiple times to the ED and admitted [facility] for delusional thinking/hallucinations/agitatio n. Impression: [...] follow. Cecile Henry MD PGY-3 Neurology Resident [facility] Seen and staffed with: Dr. Nails This patient is being followed by the Neurology Resident service. Contact attending directly during these hours: Tuesday to 7:30-8:30 A.M. to Tuesday 12-1:00 p.m. Primary Neurology service: [phone] Consult neurology service: [phone] Resident Stroke Service: [phone] If the patient belongs to the Stroke [...] psychiatry for management of violent/anger outburst/paranoid behavior. Zcah Nails MD. Binder And Wrapper Packer of Neurology [facility] Images from the original note were not included. [facility] Neurology General Neurology Consultation Progress Note Consult Neurology Service: [phone] Chief Complaint and Reason for Consultation: Decline [...] with complete remission. He follows up with [facility] Neurology and had underwent a heavy metal screen, [facility] analysis, MRI 2021 showing severe generalized [...] decline, Patient had presented to ED in [place] June 18 after waking up not oriented and delusional. Then June 25 he woke up again not knowing where he is delusional thinking his sister was an intruder so he was brought to [facility] and discharged later that evening. He was seen by child welfare social worker referred to a mental health center and per family his mental status had worsened and they felt he was being overmedicated with Benadryl. So family decided to discharge home from the hospital and took him to [facility] 07/03 for hallucinations/agitation/paranoi a and family [...] so patient was transferred to [facility] for higher level of care. Interval History: [...] Daily sodium chloride, 3 mL, intravenous, Q12H [facility] Continuous Infusions: PRN Meds:. acetaminophen dextrose dextrose [...] markers confirmed early onset Alzheimer's established in [facility] October 2022 in addition to hyperlipidemia, GERD, dm 2. Patient was transferred found [facility] for higher level of care and workup of sharp decline in cognition since May 2024. Patient had presented multiple times to the ED and admitted [facility] for delusional thinking/hallucinations/agitatio n. Impression: [...] follow. Arnulfo Haley MD PGY2 Neurology [facility] Seen and staffed with: Dr. Nails This patient is being followed by the Neurology Resident service. Contact attending directly during these hours: Tuesday to 7:30-8:30 A.M. to Tuesday 12-1:00 p.m. Primary Neurology service: [phone] Consult neurology service: [phone] Resident Stroke Service: [phone] If the patient belongs to the Stroke [...] type), obtain routine EEG. Zach Nails MD. Binder And Wrapper Packer of Neurology [facility] Images from the original note were not included. [facility] 07/07/2024 Patient Name: Estella Jeffery : 1965 [...] last 168 hours. documented in this encounter [facility] 07-21-2024 Plan of care note Problem: [...] at the bedside 7. Instruct patient/ patient sales training representative about use of safety devices 8. Include patient/ patient sales training representative in decisions related to safety Outcome: Progressing Note: Evaluation of progress towards goal: pt remains free from injury Problem: Knowledge Deficit Goal: Patient/patient sales training representative demonstrates understanding of disease process, treatment [...] Score of =/> 25 or indicated by [facility] Assessment Goal: Patient should be free from fall Description: Interventions: 1. Maxbass to environment 2. Hourly rounds addressing the [...] non-skid footwear 11. Teach patient and patient sales training representative to maintain environment for safety and [...] (cane, walker) within reach 19. Request patient sales training representative bring adaptive equipment/mobility aids from home or obtain and provide as needed 20. Consult pharmacy regarding effects of med's affecting mobility, cognition, and alternatives 21. Obtain physician order for PT if risk factors associated with mobility are present 22. Obtain physician order for OT as appropriate 23. Utilize diversional activities 24. Educate patient and patient sales training representative how to maintain a safe environment during visitation times (notify nurse prior to leaving bedside) 25. Consider appropriateness of medical or non-medical officer psychiatry 26. Set up voiding schedule as appropriate (every 2 hours) Outcome: Progressing Note: Evaluation of progress towards goal: fall precautions in place and pt remains free from falls [facility] 07-20-2024 Progress note Formatting of t his note might be different from the original. DISCHARGE PLANNING NOTE Patient's family has appealed his discharge & we have received notification from [facility] that a DC appeal has been called in. The chart, DND form, & IMM have been successfully uploaded by script writer to the [employer] and successfully received by Eduardo. [facility] will notify the of the patient of the appeal determination. Patient Support Specialist phone called patient's & read the DND notice to her. Paper copy of the DND notice to be delivered to the patient's bedside. Patient Support Specialist informed to anticipate phone call from Eduardo re: determination of DC Appeal & encouraged wifeto answer the phone when Eduardo calls. expressed verbal understanding of DND and the DC appeal process. - NELLI GLEZ YOUTH CARE WORKER CARE NAVIGATION 07/20/24 5:13 PM [facility] 07-20-2024 Consult note Associated Order (s): IP CONSULT TO NEUROSURGERY Images from the original note were not included. [facility] [address] [place] [address], [address] [place] [address] * NEUROSURGERY CONSULT NOTE DATE:07/20/2024 PATIENT'S NAME: [...] Performed by Skyler Bowen MD at [facility] COLONOSCOPY JANICE 3YEARS AGO COLOSTOMY CLOSURE PUNCTURE LUMBAR N/A 07/10/2024 Performed by Zach Nails MD at [facility] FAMILY HISTORY Family History Problem Relation [...] care per primary team FRAN Burton Neurosurgery [facility] House Party Please contact via [employer] first then can utilize Patient touch/VoceraEdge if needed- 07/20/24 3:45 PM To find out which ASHLEE is on for the day please go to [employer] and use log in Ybrain and search for [facility] Neurosurgery FRAN Charles 07/20/24 1632 [facility] 07-20-2024 Consult note Associated Order (s): IP CONSULT TO NEUROSURGERY Images from the original note were not included. [facility] [address] [place] [address], [address] [place] [address] * NEUROSURGERY CONSULT NOTE DATE:07/20/2024 PATIENT'S NAME: [...] gel 15 g, 15 g, oral, PRN, Nihcol Heath MD dextrose 50 % in water [...] Nichol Heath MD, 3 mL at 07/14/24 211 sodium chloride 0.9 % flush bag, 25 [...] Performed by Skyler Bowen MD at [facility] COLONOSCOPY JANICE 3YEARS AGO COLOSTOMY CLOSURE PUNCTURE LUMBAR N/A 07/10/2024 Performed by Zach Nails MD at [facility] FAMILY HISTORY Family History Problem Relation [...] care per primary team FRAN Burton Neurosurgery [facility] Please contact via [employer] first then can utilize Patient touch/VoceraEdge if needed- 07/20/24 3:45 PM To find out which ASHLEE is on for the day please go to [employer] and use log in Ybrain and search for [facility] Neurosurgery FRAN Charles 07/20/24 1632 Images from the original note were not included. [facility] Neurology General Neurology Consult Note Primary Neurology service: [phone] Patient - Estella Jeffery Age - 59 y[facility] 1965 [id number] Date of Admission - 07/06/2024 7:28 AM [...] with complete remission. He follows up with [facility] Neurology and had underwent a heavy metal screen, [facility] analysis, MRI 2021 showing severe generalized [...] reflux disease) High cholesterol Perforated sigmoid colon ([facility]) Family History: Family History Problem Relation Age [...] and symmetric in all four extremities. Coordination [id number], rapid alternating movements and hlgy-lt-ualt normal bilaterally without dysmetria. Gait Deferred. Psychiatric [...] biomarkers confirmed early onset diagnosis established in [facility] September 2022 but reportedly functional at home per family in addition to hyperlipidemia, GERD, dm 2. Patient was transferred from [facility] for higher level of care [...] Neurology standpoint Elana Valerio MD PGY-1 Neurology [facility] 07/19/24 1:[address] Sofia This patient is being followed by the Neurology Resident service. Contact attending directly during these hours: Tuesday to 7:30-8:30 A.M. to Tuesday 12-1:00 p.m. Primary Neurology service: [phone] Consult neurology service: [phone] Resident Stroke Service: [phone] If the patient belongs to the Stroke [...] for: EAG Lab Results Component Value Date [id number] 07/08/2024 Neurological work up: CT head CTA head and neck MRI brain 05/07/2022 hippocampal volume loss. White matter changes. 2 D echo Assessment and recommendations Delirium superimposed on baseline cognitive impairment Presyncope likely neurocardiogenic Hypotension Early-onset Alzheimer disease confirmed with bio markers at [facility] Upon examination patient is awake, is [...] Compliant: Principal Problem: Dementia with behavioral disturbance ([facility]) Active Problems: Altered mental status Status post colostomy, follow-up exam ([facility]) Reason for Consultation: Rehabilitation Candidacy and Rehab Hand Hose Cutter Physicians/Services Consulting Providers Provider Service Specialty Mina [...] reflux disease) High cholesterol Perforated sigmoid colon ([facility]) PS Past Surgical History: Procedure Laterality Date ARM EXPLORATION WITH REPAIR LACERATED ULNAR ARTERY Left 11/24/2019 Performed by Skyler Bowen MD at [facility] 3YEARS AGO COLOSTOMY CLOSURE Allergies Allergies Allergen [...] mg/dL Cytology Collection Time: 07/10/24 9:39 AM [facility] [address] [place] [address] Cytology Consultation Patient Name:ESTELLA JEFFERY:1965 (Age: 58)Gender:MTaken:07/10/2024Report ed:07/11/2024 16:49Physician(s):Arnulfo Haley M.D. ([phone])Copy To:Lonnie Baker M.D. Nichol Heath M.D. Rec. #:[id number]: #[id number] Final Cytologic Diagnosis Cerebrospinal fluid: No malignant cells identified. gr/07/11/2024 Interpretation performed at [facility] [address] [place] [address], License number: [id number].Electronically Signed Out By Derick Lorenz MD Additional Report(s): Flow Cytometry-Surg/BM/NG Date Reported: # Immunophenotyping antibodies tested: CD3, CD4, CD5, CD7, CD8, CD19, CD20, CD45, [place], and Lambda. Immunophenotyping Comment: Immunophenotyping has been used in this diagnostic evaluation. This test was developed and its performance characteristics determined by the [facility] Department. 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 Also received is one cytospin slide from Hematology. Source of Specimen Cerebrospinal fluid Non INFORMATION ASSURANCE ThinPrep, Cytospin Slide Fee Code(s): 1; 24884 VDRL, Spinal Fluid Collection Time: 07/10/24 9:39 [...] Assessment/Plan Principal Problem: Dementia with behavioral disturbance ([facility]) Active Problems: Altered mental status Status post colostomy, follow-up exam ([facility]) Acute mental status change patient also was [...] restraint CHIEF COMPLAINT: Dementia with behavioral disturbance ([facility]) Estella Jeffery is a 58 y.o. male who presents with Dementia with behavioral disturbance ([facility]) .he is HISTORY OF PRESENT ILLNESS: The patient is a 58-year-old [place] male treatment at the [facility] for the patient has a substantial history of dyslipidemia, sleep apnea, type 2 diabetes mellitus, recent diagnosed history of early-onset Alzheimer's dementia, an epileptic disorder in remission, as well as a recent admission to [facility] for altered mental status. An [...] discharged to a memory care unit or usp that is well-versed in the treatment of [...] 11/24/2019 Performed by Skyler Bowen MD at [facility] 3YEARS AGO COLOSTOMY CLOSURE Medications Prior [...] to a memory care unit or a usp that is well-versed in management of memory [...] from the original note were not included. [facility] Neurology General Neurology Consult Note Primary Neurology service: [phone] Chief Complaint: HPI: Estella Jeffery is a [...] with complete remission. He follows up with [facility] Neurology and had underwent a heavy metal screen, [facility] analysis, MRI 2021 showing severe generalized [...] decline, Patient had presented to ED in [place] June 18 after waking up not oriented and delusional. Then June 25 he woke up again not knowing where he is delusional thinking his sister was an intruder so he was brought to [facility] and discharged later that evening. He was seen by child welfare social worker referred to a mental health center and per family his mental status had worsened and they felt he was being overmedicated with Benadryl. So family decided to discharge home from the hospital and took him to [facility] 07/03 for hallucinations/agitation/paranoi a and family [...] so patient was transferred to [facility] for higher level of care. On my evaluation patient was restless fidgeting and did not allow me to speak him or enter the room, he would tell me his family members names what refused to tell me his name asked me to leave the room. I could not do any assessment [place] test or neurological exam. Per family patient [...] markers confirmed early onset Alzheimer's established in [facility] October 2022 in addition to hyperlipidemia, GERD, dm 2. Patient was transferred found [facility] for higher level of care and workup of sharp decline in cognition since May 2024. Patient had presented multiple times to the ED and admitted [facility] for delusional thinking/hallucinations/agitatio n. On [...] once reconciled. Elana Valerio MD PGY-1 Neurology [facility] 07/06/24 9:[address] Sofia This patient is being followed by the Neurology Resident service. Contact attending directly during these hours: Tuesday to 7:30-8:30 A.M. to Tuesday 12-1:00 p.m. Primary Neurology service: [phone] Consult neurology service: [phone] Resident Stroke Service: [phone] If the patient belongs to the Stroke [facility] service please contact the Stroke [facility] directly. Cosigned by Kelley Sofia MD at 07/06/2024 11:32 PM EST Associated attestation - Kelley Sofia MD - 07/06/2024 11:32 PM EST Kelley Sofia MD Neurology documented in this encounter [facility] 07-20-2024 Hospital Discharge instructions Luiz Shipley MD - 07/20/2024 3:28 PM EST 07/30 at 12:40 Hospital follow up with Fidelina Fisher CNP [facility] TBI [address] [place] [address] Please follow up with Neurosurgery [...] Hospital follow up with Fidelina Fisher CNP [facility] TBI [address] [place], [place] [id number] Pt. should bring the following to appointment; [...] For NEW patients, MD will not prescribe [facility] pain medication. The following attachments cannot be sent through Care Everywhere.Dementia Discharge Instructions (Uzbek)Time to stop driving? (Uzbek)Dementia (including Alzheimer disease) (Uzbek)documented in this encounter [facility] 07-20-2024 Plan of care note Problem: [...] at the bedside 7. Instruct patient/ patient sales training representative about use of safety devices 8. Include patient/ patient sales training representative in decisions related to safety Outcome: Progressing Note: Evaluation of progress towards goal: Patient remains injury free at this time. Problem: Knowledge Deficit Goal: Patient/patient sales training representative demonstrates understanding of disease process, treatment [...] be free from fall Description: Interventions: 1. Maxbass to environment 2. Hourly rounds addressing the [...] non-skid footwear 11. Teach patient and patient sales training representative to maintain environment for safety and [...] (cane, walker) within reach 19. Request patient sales training representative bring adaptive equipment/mobility aids from home or obtain and provide as needed 20. Consult pharmacy regarding effects of med's affecting mobility, cognition, and alternatives 21. Obtain physician order for PT if risk factors associated with mobility are present 22. Obtain physician order for OT as appropriate 23. Utilize diversional activities 24. Educate patient and patient sales training representative how to maintain a safe environment during visitation times (notify nurse prior to leaving bedside) 25. Consider appropriateness of medical or non-medical officer psychiatry 26. Set up voiding schedule as appropriate (every 2 hours) Outcome: Progressing Note: Evaluation of progress towards goal: Patient remains free from falls at this time. [facility] 07-20-2024 Telephone encounter Note Spoke to , Kari. Pt is currently at [facility]. Pt is being denied an admit to rehab facility. I am unable to view notes from that hospital. Suggestion given to try [facility] as [facility] does not have a TBI clinic. Family will have to work with staff at [facility]. Verbalized understanding. [facility] 07-20-2024 Miscellaneous Notes Spoke to , Kari. Pt is currently at [facility]. Pt is being denied an admit to rehab facility. I am unable to view notes from that hospital. Suggestion given to try [facility] as [facility] does not have a TBI clinic. Family will have to work with staff at [facility]. Verbalized understanding. Spoke with Dr Harmon (sp?) from [facility] regarding patient. Family is requesting transfer to a [facility] TBI center, inpatient. I advised that Dr Guerra cannot assist in this matter. Patient mailbox is full unable to leave message Patient returned your call and can be reached at: Call patient at: on cell [phone] (home) [phone] (cell) documented in this encounter [facility] 07-20-2024 Progress note Formatting of t his note might be different from the original. DISCHARGE PLANNING NOTE 07/30 at 12:40 Hospital follow up with Fidelina Fisher CNP [facility] TBI [address] [place] [address] [place] [facility] 07-20-2024 Hospital course Narrative Images from the original note were not included. 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 October 2022, patient had fall June [...] TBI clinic follow-up and management. Also contacted [facility], per family request. Spoke with Dr.Mary [...] outpatient workup. I also spoke with Neurosurgery PROGRAM HOST Victorina Marcelino, and have made arrangements for [...] data in the 24 hours ending 07/20/24 2892 Physical Exam Constitutional: General: He is not [...] Follow up: Jae Lopez MD [address] [id number] Schedule an appointment as soon as possible for a visit in 1 week(s) Jessica Johnson MD [address] [facility], [address] [facility] [phone] Schedule an appointment as soon as possible for a visit in 2 week(s) 07/30 at 12:40 Hospital follow up with Fidelina Fisher CNP [facility] TBI [address] [place] [address] Please follow up with Neurosurgery [...] 07/20/2024 4:18 PM documented in this encounter [facility] 07-20-2024 Progress note Formatting of t his note might be different from the original. Confirmed with Taylor at [facility] she did receive the updated notes (neuro, PMR, PT/OT) that were faxed and uploaded to [facility]. She is almost finishing writing it up for physician review and will call us with their determination by 10am. 9:31 am Received call from Taylor at [facility] IPR-she reviewed updated notes with medical dermatologist and they remain unable to accept after our 3rd request for review. She said he is doing too well functionally, does not need OT/PT services. She said after discussion with medical dermatologist their facility would be of no benefit to the patient. This information was communicated to interdisciplinary team via epic chat [employer] [facility] 07-20-2024 Telephone encounter Note Received transfer center request to discuss with referring physician. Briefly, this patient with baseline cognitive impairment (? Early AD) had a fall with closed head injury and behavioral changes post-fall. He is medically stable and behavior has improved. Referrals were made to multiple TBI rehab facilities and all declined. The family requests transfer to [facility] inpatient service for further cognitive evaluation and management. It sounds like the patient is appropriately managed thus far and has no ongoing inpatient care needs. Thus, hospital to hospital transfer is not likely to be beneficial. We discussed the 3 neurorehab centers in our network. Referring MD will confirm with employment evaluator/case manager that referrals were sent to all 3. If the patient is discharged home or to SNF, we can potentially expedite an appointment with our PMR colleagues/TBI multidisciplinary clinic. I will alert Drs. Aguilar and Earl to the referral. Janice Mcdermott MD [facility] Work Phone: 07-20-2024 Miscellaneous Notes Received transfer center request to discuss with referring physician. Briefly, this patient with baseline cognitive impairment (? Early AD) had a fall with closed head injury and behavioral changes post-fall. He is medically stable and behavior has improved. Referrals were made to multiple TBI rehab facilities and all declined. The family requests transfer to [facility] inpatient service for further cognitive evaluation and management. It sounds like the patient is appropriately managed thus far and has no ongoing inpatient care needs. Thus, hospital to hospital transfer is not likely to be beneficial. We discussed the 3 neurorehab centers in our network. Referring MD will confirm with employment evaluator/case manager that referrals were sent to all 3. If the patient is discharged home or to SNF, we can potentially expedite an appointment with our PMR colleagues/TBI multidisciplinary clinic. I will alert Drs. Aguilar and Earl to the referral. Janice Mcdermott MD documented in this encounter [facility] 07-20-2024 Progress note Formatting of t his note might be different from the original. DISCHARGE PLANNING NOTE Sent face sheet to [facility] for hospital transfer via secure fax to # [phone] [facility] 07-20-2024 Progress note Formatting of t his note might be different from the original. DISCHARGE PLANNING NOTE Discharge plan- awaiting responses from [facility] if they can accept. Tasked [facility] to send neuro note from yesterday to them again. Tasked [facility] to fax his face sheet to [facility] per physician request since she is calling them about a hospital to hospital transfer per families request. Leadership team aware. - NANCY PARRISH 07/20/24 8:19 AM Discussed patient and d/c planning with leadership team. Everyone in agreement with d/c today since per physician [facility] can not accept as a hospital transfer and [facility] IPR has denied as well. Physician and this script writer spoke with patient, and sister that is present re: d/c today and that patient will be going home with outpatient ST and an appointment has been made for a TBI clinic for follow up. Provided IMM to and explained. Leadership aware. - NANCY PARRISH 07/20/24 11:29 AM [facility] Progress note Formatting of t his note might be different from the original. DISCHARGE PLANNING NOTE Neuro Note sent to [facility] (P# [phone] ; F# [phone]) in careport and via [employer]. [facility] 07-20-2024 Plan of care note Problem: [...] at the bedside 7. Instruct patient/ patient sales training representative about use of safety devices 8. Include patient/ patient sales training representative in decisions related to safety Outcome: Progressing Note: Evaluation of progress towards goal: Pt remains free from injury and significant other at bedside Problem: Knowledge Deficit Goal: Patient/patient sales training representative demonstrates understanding of disease process, treatment [...] Score of =/> 25 or [facility] Goal: Patient should be free from fall Description: Interventions: 1. Maxbass to environment 2. Hourly rounds addressing the [...] non-skid footwear 11. Teach patient and patient sales training representative to maintain environment for safety and [...] (cane, walker) within reach 19. Request patient sales training representative bring adaptive equipment/mobility aids from home or obtain and provide as needed 20. Consult pharmacy regarding effects of med's affecting mobility, cognition, and alternatives 21. Obtain physician order for PT if risk factors associated with mobility are present 22. Obtain physician order for OT as appropriate 23. Utilize diversional activities 24. Educate patient and patient sales training representative how to maintain a safe environment during visitation times (notify nurse prior to leaving bedside) 25. Consider appropriateness of medical or non-medical officer psychiatry 26. Set up voiding schedule as appropriate (every 2 hours) Outcome: Progressing Note: Evaluation of progress towards goal: pt remains free from falls and fall precautions are in place [facility] 07-19-2024 Progress note Formatting of t his note might be different from the original. DISCHARGE PLANNING NOTE Updates to [facility] (P# [phone] ; F# [phone]) [facility] 07-19-2024 Progress note Formatting of t his [...] therapy per MARCI Rothman Equipment: gait belt Telemetry/Cash Posting Representative: No Oxygen Used: room air Other: fall [...] up w/mother's name; educated sister on playing [employer] songs from pt's younger years, to encourage [...] Hogan Progressing 07/17/24 1439 EN Hogan Progressing Problem: Bathing [...] Date/Time User Outcome 07/17/24 1439 Yoanna Han-Mahoney, SEISMIC COMPUTER/L Progressing Problem: Standing Balance Dates: Start: 07/13/24 Disciplines: OT Goal: Improve balance to normal Dates: Start: 07/13/24 Expected End: 08/13/24 Description: Normal dynamic balance. Disciplines: OT Outcomes Date/Time User Outcome 07/19/24 1445 Yoanna Han-Mahoney, SEISMIC COMPUTER/L Progressing 07/17/24 1439 Yoanna Han-Mahoney, SEISMIC COMPUTER/L Progressing Problem: Toilet Transfers Dates: Start: 07/13/24 Disciplines: OT Goal: Patient will perform toilet transfers Independently Dates: Start: 07/13/24 Expected End: 08/13/24 Description: Goal Description: Disciplines: OT Outcomes Date/Time User Outcome 07/17/24 1439 Yoanna Han-Mahoney, SEISMIC COMPUTER/L Progressing Problem: Toileting Dates: Start: 07/13/24 Disciplines: OT Goal: Patient will perform toileting Independently Dates: Start: 07/13/24 Expected End: 08/13/24 Description: Goal Description: Disciplines: OT Outcomes Date/Time User Outcome 07/17/24 1439 Yoanna Han-Mahoney, SEISMIC COMPUTER/L Progressing Problem: Transfers Dates: Start: 07/13/24 Disciplines: OT Goal: Patient will perform transfers Independently Dates: Start: 07/13/24 Expected End: 08/13/24 Description: Goal Description: Disciplines: OT Outcomes Date/Time User Outcome 07/19/24 1445 Yoanna Han-Mahoney, KWADWO/L Progressing 07/17/24 1439 Yoanna Han-Mahoney, KWADWO/L Progressing Occupational Therapy Care Plan (Resolved) There are no resolved problems. Principal Problem: Dementia with behavioral disturbance ([facility]) Active Problems: Altered mental status Status post colostomy, follow-up exam ([facility]) Cosigned by Veronica Gorman OTR/Jerome at 07/19/2024 3:13 PM EST Associated attestation - Veronica Gorman OTR/Jerome - 07/19/2024 3:13 PM EST I have reviewed and agree with this note and education documentation for this visit. [place] [facility] 07-19-2024 Progress note Formatting of t [...] therapy per MARCI Rothman Equipment: gait belt Telemetry/Cash Posting Representative: Yes Oxygen Used: room air Other: fall [...] Goal: Patient will perform stairs/curb with Modified Dixie Dates: Start: 07/13/24 Expected End: 07/27/24 Description: [...] problems. Principal Problem: Dementia with behavioral disturbance ([facility]) Active Problems: Altered mental status Status post colostomy, follow-up exam ([facility]) Cosigned by Jose Gorman PT at 07/19/2024 3:14 PM EST Associated attestation - Jose Gorman, PT - 07/19/2024 3:14 PM EST I have reviewed and agree with this note and education documentation for this visit. [place] [facility] 07-19-2024 Plan of care note Problem: Safety [...] at the bedside 7. Instruct patient/ patient sales training representative about use of safety devices 8. Include patient/ patient sales training representative in decisions related to safety Outcome: Progressing Note: Evaluation of progress towards goal: Patient remains injury free at this time. Problem: Knowledge Deficit Goal: Patient/patient sales training representative demonstrates understanding of disease process, treatment [...] Score of =/> 25 or indicated by [facility] Assessment Goal: Patient should be free from fall Description: Interventions: 1. Maxbass to environment 2. Hourly rounds addressing the [...] non-skid footwear 11. Teach patient and patient sales training representative to maintain environment for safety and [...] (cane, walker) within reach 19. Request patient sales training representative bring adaptive equipment/mobility aids from home or obtain and provide as needed 20. Consult pharmacy regarding effects of med's affecting mobility, cognition, and alternatives 21. Obtain physician order for PT if risk factors associated with mobility are present 22. Obtain physician order for OT as appropriate 23. Utilize diversional activities 24. Educate patient and patient sales training representative how to maintain a safe environment during visitation times (notify nurse prior to leaving bedside) 25. Consider appropriateness of medical or non-medical officer psychiatry 26. Set up voiding schedule as appropriate (every 2 hours) Outcome: Progressing Note: Evaluation of progress towards goal: Patient remains free from falls. [facility] 07-19-2024 Consult note Formatting of th is note is different from the original. Images from the original note were not included. [facility] Neurology General Neurology Consult Note Primary Neurology service: [phone] Patient - Estella Jeffery Age - 59 [facility] 1965 [id number] Date of Admission - 07/06/2024 7:28 AM [...] with complete remission. He follows up with [facility] Neurology and had underwent a heavy [...] and symmetric in all four extremities. Coordination [id number], rapid alternating movements and [id number] normal bilaterally without dysmetria. Gait Deferred. Psychiatric [...] biomarkers confirmed early onset diagnosis established in [facility] September 2022 but reportedly functional at home per family in addition to hyperlipidemia, GERD, dm 2. Patient was transferred from [facility] for higher level of care [...] Neurology standpoint Elana Valerio MD PGY-1 Neurology [facility] 07/19/24 1:[address] Sofia This patient is being followed by the Neurology Resident service. Contact attending directly during these hours: Tuesday to 7:30-8:30 A.M. to Tuesday 12-1:00 p.m. Primary Neurology service: [phone] Consult neurology service: [phone] Resident Stroke Service: [phone] If the patient belongs to the Stroke [...] for: EAG Lab Results Component Value Date [id number] 07/08/2024 Neurological work up: CT head CTA head and neck MRI brain 05/07/2022 hippocampal volume loss. White matter changes. 2 D echo Assessment and recommendations Delirium superimposed on baseline cognitive impairment Presyncope likely neurocardiogenic Hypotension Early-onset Alzheimer disease confirmed with bio markers at [facility] Upon examination patient is awake, is [...] meaning can be extrapolated by contextual derivation. [facility] Work Phone: 07-19-2024 Telephone encounter Note Spoke with Dr Harmon (sp?) from [facility] regarding patient. Family is requesting transfer to a [facility] TBI center, inpatient. I advised that Dr Guerra cannot assist in this matter. [facility] 07-19-2024 Progress note Formatting of t his note might be different from the original. DISCHARGE PLANNING NOTE Updates to [facility] (P# ; F# ) [facility] 07-19-2024 Progress note Formatting of t his note is different from the original. Images from the original note were not included. DISCHARGE PLANNING NOTE Discussed patient today during rounds. Plan-TBI center VS IPR. This script writer and floor Mgr spoke with patient's over the phone and his sister in his room re: d/c planning. Updated them that [facility] has denied. Offered to send referral to [facility] to see if they can accept as well as sending blanketed SNF referrals. They are in agreement with sending to [facility] at this time and will let us know today if they would like SNF referrals sent or if the back up plan would be home. Tasked [facility] to send referral to [facility]. Leadership team aware. Services Requested: Services Requested Patient expects to be discharged to:: TBI center VS IPR Discharge Disposition: Acute rehab Patient Goals: Goals: Goals (pt-stated) Evaluation of progress towards goal: TBI center vs IPR - NANCY PARRISH 07/19/24 10:42 AM This script writer and flooring machine feeder and Dr. Shipley spoke with patient, and sister re: d/c planning. They are aware that [facility] is still reviewing referral. Asked if SNF referrals can be sent and they declined stating they would like the physician to see if she can get him transferred to [facility] as a physician to physician transfer. Updated Leadership. If neither of these hospitals can accept then patient to d/c home with since SNF has been declined. - NANCY PARRISH 07/19/24 12:14 PM This script writer and floor mgr spoke with family to let them know [facility] has denied patient and that they recommend SNF for him. Tasked [facility] to send neuro note from today to [facility] to see if they can accept him with this updated note. Leadership aware. - NANCY PARRISH 07/19/24 3:21 PM [facility] 07-19-2024 Plan of care note Problem: Safety [...] at the bedside 7. Instruct patient/ patient sales training representative about use of safety devices 8. Include patient/ patient sales training representative in decisions related to safety Outcome: Progressing Note: Evaluation of progress towards goal: Problem: Knowledge Deficit Goal: Patient/patient sales training representative demonstrates understanding of disease process, treatment [...] Progressing Note: Evaluation of progress towards goal: [facility] 07-19-2024 Plan of care note Problem: Safety [...] at the bedside 7. Instruct patient/ patient sales training representative about use of safety devices 8. Include patient/ patient sales training representative in decisions related to safety Outcome: Progressing Note: Evaluation of progress towards goal: Problem: Knowledge Deficit Goal: Patient/patient sales training representative demonstrates understanding of disease process, treatment [...] Progressing Note: Evaluation of progress towards goal: [facility] 07-18-2024 Plan of care note Problem: Safety [...] at the bedside 7. Instruct patient/ patient sales training representative about use of safety devices 8. Include patient/ patient sales training representative in decisions related to safety Outcome: Progressing Note: Evaluation of progress towards goal: patient is injury free at this time. Problem: Knowledge Deficit Goal: Patient/patient sales training representative demonstrates understanding of disease process, treatment [...] Score of =/> 25 or indicated by [facility] Assessment Goal: Patient should be free from fall Description: Interventions: 1. Maxbass to environment 2. Hourly rounds addressing the [...] non-skid footwear 11. Teach patient and patient sales training representative to maintain environment for safety and [...] (cane, walker) within reach 19. Request patient sales training representative bring adaptive equipment/mobility aids from home or obtain and provide as needed 20. Consult pharmacy regarding effects of med's affecting mobility, cognition, and alternatives 21. Obtain physician order for PT if risk factors associated with mobility are present 22. Obtain physician order for OT as appropriate 23. Utilize diversional activities 24. Educate patient and patient sales training representative how to maintain a safe environment during visitation times (notify nurse prior to leaving bedside) 25. Consider appropriateness of medical or non-medical officer psychiatry 26. Set up voiding schedule as appropriate (every 2 hours) Outcome: Progressing Note: Evaluation of progress towards goal: Patient is free from falls at this time. [facility] 07-18-2024 Progress note Formatting of t his note might be different from the original. DISCHARGE PLANNING NOTE Referral sent to [facility] (P# [phone] ; F# [phone]) [facility] 07-18-2024 Telephone encounter Note Patient mailbox is full unable to leave message [facility] 07-18-2024 Progress note Formatting of t his note is different from the original. Images from the original note were not included. DISCHARGE PLANNING NOTE Discussed patient today during rounds. Patient's requested updates be sent to [facility]. Tasked [facility] to send. Leadership team aware as well as floor nurse. Barriers- acceptance, auth. Services Requested: Services Requested Patient expects to be discharged to:: home vs snf Patient Goals: Goals: Goals (pt-stated) Evaluation of progress towards goal: TBD-pending PT/OT NANCY Mckenzie 07/18/24 10:30 AM Still awaiting response from [facility] if they can accept patient. Leadership team aware. Floor mgr has spoken with family to update them. - NANCY PARRISH 07/18/24 2:50 PM [facility] 07-18-2024 Telephone encounter Note Patient returned your call and can be reached at: Call patient at: on cell [phone] (home) [phone] (cell) [facility] 07-18-2024 Telephone encounter Note -LVMTCB We are unable to assist in this matter. Pt last seen 04/2022 [facility] 07-18-2024 Miscellaneous Notes -LVMTCB We are unable to assist in this matter. Pt last seen 04/2022 Pt fell and is in [facility] and is requesting help with getting pt transferred to a [facility] Please call pts [phone] documented in this encounter [facility] 07-17-2024 Plan of care note Problem: [...] at the bedside 7. Instruct patient/ patient sales training representative about use of safety devices 8. Include patient/ patient sales training representative in decisions related to safety Outcome: [...] be free from fall Description: Interventions: 1. Maxbass to environment 2. Hourly rounds addressing the [...] non-skid footwear 11. Teach patient and patient sales training representative to maintain environment for safety and [...] (cane, walker) within reach 19. Request patient sales training representative bring adaptive equipment/mobility aids from home or obtain and provide as needed 20. Consult pharmacy regarding effects of med's affecting mobility, cognition, and alternatives 21. Obtain physician order for PT if risk factors associated with mobility are present 22. Obtain physician order for OT as appropriate 23. Utilize diversional activities 24. Educate patient and patient sales training representative how to maintain a safe environment during visitation times (notify nurse prior to leaving bedside) 25. Consider appropriateness of medical or non-medical officer psychiatry 26. Set up voiding schedule as appropriate (every 2 hours) Outcome: Progressing Note: Evaluation of progress towards goal: Patient will remain free from falls. [facility] 07-17-2024 Progress note Formatting of t his note might be different from the original. DISCHARGE PLANNING NOTE Referral sent to. [facility] (P# [phone] ; F# [phone], ) [facility] 07-17-2024 Progress note Formatting of t [...] 6 Clicks: Basic Mobility Raw Score: 20 [facility] G Code Modifier: CJ Patient Response to Treatment: Progressing toward goals Assessment Patient Assessment Patient Response to Treatment: Progressing toward goals Visit RN Communication: Yes Medical Record Reviewed: Yes PT Type of Visit: Treatment Precautions Activity: ok for therapy per MARCI Rothman Equipment: gait belt and chair alarm Telemetry/Cash Posting Representative: Yes Oxygen Used: room air Other: fall [...] Disciplines: PT Outcomes Date/Time User Outcome 07/17/24 1444 Vinod Vaca PTA Progressing Goal Note filed [...] Goal: Patient will perform stairs/curb with Modified Dixie Dates: Start: 07/13/24 Expected End: 07/27/24 Description: [...] problems. Principal Problem: Dementia with behavioral disturbance ([facility]) Active Problems: Altered mental status Status post colostomy, follow-up exam ([facility]) Cosigned by Janice Nuno PT at 07/18/2024 7:18 AM EST Associated attestation - Janice Nuno PT - 07/18/2024 7:18 AM EST I have reviewed and agree with this note and education documentation for this visit. [facility] 01-28-2025 Progress note Formatting of t his note [...] Rothman Equipment: gait belt and chair alarm Telemetry/Cash Posting Representative: Yes Oxygen Used: room air Other: fall [...] Date/Time User Outcome 07/17/24 1439 Yoanna Han-Mahoney, SEISMIC COMPUTER/L Progressing Problem: Grooming Dates: Start: 07/13/24 Disciplines: [...] 07/17/24 1439 Yoanna Guille-Mahoney, KWADWO/L Progressing Problem: Toilet Transfers Dates: Start: 07/13/24 Disciplines: OT Goal: Patient will perform toilet transfers Independently Dates: Start: 07/13/24 Expected End: 08/13/24 Description: Goal Description: Disciplines: OT Outcomes Date/Time User Outcome 07/17/24 1439 Yoanna Guille-Mahoney, SEISMIC COMPUTER/L Progressing Problem: Toileting Dates: Start: 07/13/24 Disciplines: OT Goal: Patient will perform toileting Independently Dates: Start: 07/13/24 Expected End: 08/13/24 Description: Goal Description: Disciplines: OT Outcomes Date/Time User Outcome 07/17/24 1439 EN Hogan Progressing Problem: Transfers Dates: Start: 07/13/24 Disciplines: OT Goal: Patient will perform transfers Independently Dates: Start: 07/13/24 Expected End: 08/13/24 Description: Goal Description: Disciplines: OT Outcomes Date/Time User Outcome 07/17/24 1439 KWADWO Hogan/Jerome Progressing Occupational Therapy Care Plan (Resolved) There are no resolved problems. Principal Problem: Dementia with behavioral disturbance ([facility]) Active Problems: Altered mental status Status post colostomy, follow-up exam ([facility]) Cosigned by MAYNOR Navarro/Jerome at 07/17/2024 3:03 PM EST Associated attestation - Lucie Olivarez OTR/Jerome - 07/17/2024 3:03 PM EST I have reviewed and agree with this note and education documentation for this visit. [facility] 07-17-2024 Telephone encounter Note Pt fell and is in [facility] and is requesting help with getting pt transferred to a [facility] Please call pts [phone] [facility] 07-17-2024 Plan of care note Problem: [...] at the bedside 7. Instruct patient/ patient sales training representative about use of safety devices 8. Include patient/ patient sales training representative in decisions related to safety Outcome: Progressing Note: Evaluation of progress towards goal: Patient is injury free at this time. Problem: Knowledge Deficit Goal: Patient/patient sales training representative demonstrates understanding of disease process, treatment [...] Score of =/> 25 or indicated by [facility] Assessment Goal: Patient should be free from fall Description: Interventions: 1. Maxbass to environment 2. Hourly rounds addressing the [...] non-skid footwear 11. Teach patient and patient sales training representative to maintain environment for safety and [...] (cane, walker) within reach 19. Request patient sales training representative bring adaptive equipment/mobility aids from home or obtain and provide as needed 20. Consult pharmacy regarding effects of med's affecting mobility, cognition, and alternatives 21. Obtain physician order for PT if risk factors associated with mobility are present 22. Obtain physician order for OT as appropriate 23. Utilize diversional activities 24. Educate patient and patient sales training representative how to maintain a safe environment during visitation times (notify nurse prior to leaving bedside) 25. Consider appropriateness of medical or non-medical officer psychiatry 26. Set up voiding schedule as appropriate (every 2 hours) Outcome: Progressing Note: Evaluation of progress towards goal: Patient is free from falls at this time. [facility] 07-17-2024 Progress note Formatting of t his note might be different from the original. DISCHARGE PLANNING NOTE fax referral to [facility] to [phone] attention Alyssa [facility] 07-17-2024 Progress note Formatting of t his note is different from the original. Images from the original note were not included. DISCHARGE PLANNING NOTE Discussed patient today during rounds. Plan- IPR/TBI center. Barriers- acceptance, auth. This script writer called both reviewing facilities and left for admissions to see if they can accept. Asked them to call this script writer back. Floor nurse and leadership team aware. Services Requested: Services Requested Patient expects to be discharged to:: home vs snf Patient Goals: Goals: Goals (pt-stated) Evaluation of progress towards goal: TBD-pending PT/OT eval - NANCY PARRISH 07/17/24 9:42 AM At this time we do not have an accepting TBI/IPR facility. This script writer and flooring machine feeder attempted to speak with patient's but she is not in the room. Also tried to call her but it went right to and her box is full. - NANCY PARRISH 07/17/24 1:43 PM [facility] called this script writer since they don't respond in [facility] and they can not accept patient. This script writer and flooring machine feeder spoke with patient's and patient's sister that [...] nurse. - NANCY PARRISH 07/17/24 2:45 PM [employer] [facility] 07-17-2024 Plan of care note Problem: Safety [...] at the bedside 7. Instruct patient/ patient sales training representative about use of safety devices 8. Include patient/ patient sales training representative in decisions related to safety Outcome: Progressing Note: Evaluation of progress towards goal: Patient remains injury and fall free. Safety precautions in place: call light within reach, bed in lowest position, personal belongings within reach, oriented to environment, and non-slip footwear on. Problem: Knowledge Deficit Goal: Patient/patient sales training representative demonstrates understanding of disease process, treatment [...] be free from fall Description: Interventions: 1. Maxbass to environment 2. Hourly rounds addressing the [...] non-skid footwear 11. Teach patient and patient sales training representative to maintain environment for safety and [...] (cane, walker) within reach 19. Request patient sales training representative bring adaptive equipment/mobility aids from home or obtain and provide as needed 20. Consult pharmacy regarding effects of med's affecting mobility, cognition, and alternatives 21. Obtain physician order for PT if risk factors associated with mobility are present 22. Obtain physician order for OT as appropriate 23. Utilize diversional activities 24. Educate patient and patient sales training representative how to maintain a safe environment during visitation times (notify nurse prior to leaving bedside) 25. Consider appropriateness of medical or non-medical officer psychiatry 26. Set up voiding schedule as appropriate (every 2 hours) Outcome: Progressing Note: Evaluation of progress towards goal: Patient remains injury and fall free. Safety precautions in place: call light within reach, bed in lowest position, personal belongings within reach, oriented to environment, and non-slip footwear on. [facility] 07-16-2024 Progress note Formatting of t his [...] Problem: Auditory Comprehension Dates: Start: 07/12/24 Disciplines: PEDIATRIC PHYSICAL THERAPY ASSISTANT Goal: LTG: Patient will comprehend communication related to basic medical and social needs and utilize compensatory strategies to maintain safety in a functional living environment Dates: Start: 07/12/24 Expected End: 08/12/24 Disciplines: PEDIATRIC PHYSICAL THERAPY ASSISTANT Goal: STG: Patient will answer complex yes/no questions with 90% accuracy with minimal cueing Dates: Start: 07/12/24 Expected End: 08/12/24 Disciplines: PEDIATRIC PHYSICAL THERAPY ASSISTANT Outcomes Date/Time User Outcome 07/16/24 152Lauro Conchita Devi [facility] Progressing Goal: STG: Patient will complete 1-3 step commands with 90% accuracy with minimal cueing Dates: Start: 07/12/24 Expected End: 08/12/24 Disciplines: PEDIATRIC PHYSICAL THERAPY ASSISTANT Outcomes Date/Time User Outcome 07/16/24 [facility] Progressing Goal: STG: Patient will complete simple, phrase level auditory comprehension tasks with 90% accuracy with minimal cueing Dates: Start: 07/12/24 Expected End: 08/12/24 Disciplines: PEDIATRIC PHYSICAL THERAPY ASSISTANT Problem: Cognitive Linguistic Dates: Start: 07/12/24 Disciplines: PEDIATRIC PHYSICAL THERAPY ASSISTANT Goal: LTG: Patient will display functional cognitive-linguistic skills to demonstrate appropriate communication and safety within daily activities in a functional living environment Dates: Start: 07/12/24 Expected End: 08/12/24 Disciplines: PEDIATRIC PHYSICAL THERAPY ASSISTANT Goal: STG: Patient will demonstrate sustained attention by maintaining focus during a task for 10 minutes with minimal assistance Dates: Start: 07/12/24 Expected End: 08/12/24 Disciplines: PEDIATRIC PHYSICAL THERAPY ASSISTANT Outcomes Date/Time User Outcome 07/16/24 [facility] Progressing Goal: STG: Patient will be appropriately oriented to person, place, time and situation with 90% accuracy with minimal cueing Dates: Start: 07/12/24 Expected End: 08/12/24 Disciplines: PEDIATRIC PHYSICAL THERAPY ASSISTANT Goal: STG: Patient will recall information discussed during therapy session via retelling/answering questions with 90% accuracy with minimal cueing Dates: Start: 07/12/24 Expected End: 08/12/24 Disciplines: PEDIATRIC PHYSICAL THERAPY ASSISTANT Problem: High Level Language Dates: Start: 07/12/24 Disciplines: PEDIATRIC PHYSICAL THERAPY ASSISTANT Goal: LTG: Patient will demonstrate use of self-awareness, goal setting, planning, initiation, self-monitoring and problem solving during daily activities to improve safety and awareness in a functional living environment Dates: Start: 07/12/24 Expected End: 08/12/24 Disciplines: PEDIATRIC PHYSICAL THERAPY ASSISTANT Goal: STG: Patient will sequence 4-6 steps to a task (verbal, written, pictures) with 90% accuracy with minimal cueing Dates: Start: 07/12/24 Expected End: 08/12/24 Disciplines: PEDIATRIC PHYSICAL THERAPY ASSISTANT Goal: STG: Patient will provide 3 appropriate solutions to problems of daily living with 90% accuracy with minimal cueing Dates: Start: 07/12/24 Expected End: 08/12/24 Disciplines: PEDIATRIC PHYSICAL THERAPY ASSISTANT Goal: STG: Patient will demonstrate functional problem solving and safety awareness with 90% accuracy in daily living tasks in order to increase safe interactions with environment and decrease assistance from caregivers Dates: Start: 07/12/24 Expected End: 08/12/24 Disciplines: PEDIATRIC PHYSICAL THERAPY ASSISTANT Problem: Verbal Expression Dates: Start: 07/12/24 Disciplines: PEDIATRIC PHYSICAL THERAPY ASSISTANT Goal: LTG: Patient will utilize compensatory strategies to communicate wants and needs effectively to different conversational partners, maintain safety and participate socially in a functional living environment Dates: Start: 07/12/24 Expected End: 08/12/24 Disciplines: PEDIATRIC PHYSICAL THERAPY ASSISTANT Goal: STG: Patient will respond to simple/complex open ended questions during activities of daily living with 90% accuracy with minimal cueing Dates: Start: 07/12/24 Expected End: 08/12/24 Disciplines: PEDIATRIC PHYSICAL THERAPY ASSISTANT Goal: STG: Patient will maintain topic of conversation to decrease tangential speech with 90% accuracy with minimal cueing Dates: Start: 07/12/24 Expected End: 08/12/24 Disciplines: PEDIATRIC PHYSICAL THERAPY ASSISTANT Outcomes Date/Time User Outcome 07/16/24 1520 MAGALI Castellanos Progressing Speech Therapy Care Plan (Resolved) There are no resolved problems. Principal Problem: Dementia with behavioral disturbance ([facility]) Active Problems: Altered mental status Status post colostomy, follow-up exam ([facility]) [facility] 07-16-2024 Progress note Formatting of t his note might be different from the original. DISCHARGE PLANNING NOTE Resent referral in [facility] to [facility] P#[phone]; F#[phone] sent via secure fax to [phone] [facility] 07-16-2024 Plan of care note Problem: Safety [...] at the bedside 7. Instruct patient/ patient sales training representative about use of safety devices 8. Include patient/ patient sales training representative in decisions related to safety Outcome: Progressing Note: Evaluation of progress towards goal: pain will be adequally controlled to allow for rest and adl's Problem: Knowledge Deficit Goal: Patient/patient sales training representative demonstrates understanding of disease process, treatment [...] Score of =/> 25 or indicated by [facility] Assessment Goal: Patient should be free from fall Description: Interventions: 1. Maxbass to environment 2. Hourly rounds addressing the [...] non-skid footwear 11. Teach patient and patient sales training representative to maintain environment for safety and [...] (cane, walker) within reach 19. Request patient sales training representative bring adaptive equipment/mobility aids from home or obtain and provide as needed 20. Consult pharmacy regarding effects of med's affecting mobility, cognition, and alternatives 21. Obtain physician order for PT if risk factors associated with mobility are present 22. Obtain physician order for OT as appropriate 23. Utilize diversional activities 24. Educate patient and patient sales training representative how to maintain a safe environment during visitation times (notify nurse prior to leaving bedside) 25. Consider appropriateness of medical or non-medical officer psychiatry 26. Set up voiding schedule as appropriate (every 2 hours) Outcome: Progressing Note: Evaluation of progress towards goal: fall bundle [facility] 07-16-2024 Progress note Formatting of t his note might be different from the original. DISCHARGE PLANNING NOTE Clinical updates sent to Referrals sent to [facility] (P# [phone] ; F# [phone]) and to [facility] and to [facility] [employer] 07-16-2024 Progress note Formatting of t his note might be different from the original. DISCHARGE PLANNING NOTE Referral sent to. [facility] [place] Via secure fax to [phone]. This is theor fax per phone call to facility. P#[phone]. Provider not in [facility]. [employer] 07-16-2024 Progress note Formatting of t his note might be different from the original. DISCHARGE PLANNING NOTE Discharge plan- TBD waiting to hear from TBI/IPR who can accept out of the reviewing facilities. [facility] in [facility] called this script writer and will call his to discuss. [...] PARRISH 07/16/24 10:58 AM Called admissions at [facility] and [facility] and left VM asking them if they can accept and to call this script writer back. Left callback #. - NANCY PARRISH 07/16/24 11:05 AM Still awaiting responses from all reviewing IPR this time. Leadership aware. Called [facility] and spoke with admissions and they will review. Also called [facility] and left another VM. Both in [place] are still reviewing at this time. - NANCY PARRISH 07/16/24 1:39 PM Spoke with patient and to update them that at this time we are awaiting responses from 3 facilities. Leadership aware. - NANCY PARRISH 07/16/24 3:45 PM [facility] 07-16-2024 Plan of care note Problem: [...] at the bedside 7. Instruct patient/ patient sales training representative about use of safety devices 8. Include patient/ patient sales training representative in decisions related to safety Outcome: Progressing Note: Evaluation of progress towards goal: Patient remains injury and fall free. Safety precautions in place: call light within reach, bed in lowest position, personal belongings within reach, oriented to environment, and non-slip footwear on. Problem: Knowledge Deficit Goal: Patient/patient sales training representative demonstrates understanding of disease process, treatment [...] Collaborate with ancillary departments 14. Include patient/patient sales training representative in decisions related to anxiety Outcome: Progressing Note: Evaluation of progress towards goal: Patient's anxiety appears to be at manageable level. Problem: Moderate - High Risk Fall Score Description: Gallegos Fall Score of =/> 25 or indicated by [facility] Assessment Goal: Patient should be free from fall Description: Interventions: 1. Maxbass to environment 2. Hourly rounds addressing the [...] non-skid footwear 11. Teach patient and patient sales training representative to maintain environment for safety and [...] (cane, walker) within reach 19. Request patient sales training representative bring adaptive equipment/mobility aids from home or obtain and provide as needed 20. Consult pharmacy regarding effects of med's affecting mobility, cognition, and alternatives 21. Obtain physician order for PT if risk factors associated with mobility are present 22. Obtain physician order for OT as appropriate 23. Utilize diversional activities 24. Educate patient and patient sales training representative how to maintain a safe environment during visitation times (notify nurse prior to leaving bedside) 25. Consider appropriateness of medical or non-medical officer psychiatry 26. Set up voiding schedule as appropriate (every 2 hours) Outcome: Progressing Note: Evaluation of progress towards goal: Patient remains injury and fall free. Safety precautions in place: call light within reach, bed in lowest position, personal belongings within reach, oriented to environment, and non-slip footwear on. [employer] [facility] 07-15-2024 Plan of care note Problem: [...] at the bedside 7. Instruct patient/ patient sales training representative about use of safety devices 8. Include patient/ patient sales training representative in decisions related to safety Outcome: [...] Moderate - High Risk Fall Score Description: [place] Fall Score of =/> 25 or [facility] Goal: Patient should be free from fall Description: Interventions: 1. Maxbass to environment 2. Hourly rounds addressing the [...] non-skid footwear 11. Teach patient and patient sales training representative to maintain environment for safety and [...] (cane, walker) within reach 19. Request patient sales training representative bring adaptive equipment/mobility aids from home or obtain and provide as needed 20. Consult pharmacy regarding effects of med's affecting mobility, cognition, and alternatives 21. Obtain physician order for PT if risk factors associated with mobility are present 22. Obtain physician order for OT as appropriate 23. Utilize diversional activities 24. Educate patient and patient sales training representative how to maintain a safe environment during visitation times (notify nurse prior to leaving bedside) 25. Consider appropriateness of medical or non-medical officer psychiatry 26. Set up voiding schedule as appropriate (every 2 hours) Outcome: Progressing Note: Evaluation of progress towards goal: Pt is free from falls. [facility] 07-15-2024 Plan of care note Problem: Safety [...] at the bedside 7. Instruct patient/ patient sales training representative about use of safety devices 8. Include patient/ patient sales training representative in decisions related to safety Outcome: Progressing Note: Evaluation of progress towards goal: Proper identifiers used with patient care and medication administration. Remains free of injury during shift Problem: Knowledge Deficit Goal: Patient/patient sales training representative demonstrates understanding of disease process, treatment [...] Collaborate with ancillary departments 14. Include patient/patient sales training representative in decisions related to anxiety Outcome: [...] be free from fall Description: Interventions: 1. Maxbass to environment 2. Hourly rounds addressing the [...] non-skid footwear 11. Teach patient and patient sales training representative to maintain environment for safety and [...] (cane, walker) within reach 19. Request patient sales training representative bring adaptive equipment/mobility aids from home or obtain and provide as needed 20. Consult pharmacy regarding effects of med's affecting mobility, cognition, and alternatives 21. Obtain physician order for PT if risk factors associated with mobility are present 22. Obtain physician order for OT as appropriate 23. Utilize diversional activities 24. Educate patient and patient sales training representative how to maintain a safe environment during visitation times (notify nurse prior to leaving bedside) 25. Consider appropriateness of medical or non-medical officer psychiatry 26. Set up voiding schedule as appropriate (every 2 hours) Outcome: Progressing Note: Evaluation of progress towards goal: Call light within reach. Remains free of fall or injury. Environment free of clutter. [facility] 2024 Plan of care note Problem: Safety [...] at the bedside 7. Instruct patient/ patient sales training representative about use of safety devices 8. Include patient/ patient sales training representative in decisions related to safety Outcome: Progressing Note: Evaluation of progress towards goal: pain will be controlled to allow for rest and adl's Problem: Knowledge Deficit Goal: Patient/patient sales training representative demonstrates understanding of disease process, treatment [...] Collaborate with ancillary departments 14. Include patient/patient sales training representative in decisions related to anxiety Outcome: Progressing Note: Evaluation of progress towards goal: listen and reassuring Problem: Moderate - High Risk Fall Score Description: Galleg[place] Fall Score of =/> 25 or indicated by [facility] Assessment Goal: Patient should be free from fall Description: Interventions: 1. Maxbass to environment 2. Hourly rounds addressing the [...] non-skid footwear 11. Teach patient and patient sales training representative to maintain environment for safety and [...] (cane, walker) within reach 19. Request patient sales training representative bring adaptive equipment/mobility aids from home or obtain and provide as needed 20. Consult pharmacy regarding effects of med's affecting mobility, cognition, and alternatives 21. Obtain physician order for PT if risk factors associated with mobility are present 22. Obtain physician order for OT as appropriate 23. Utilize diversional activities 24. Educate patient and patient sales training representative how to maintain a safe environment during visitation times (notify nurse prior to leaving bedside) 25. Consider appropriateness of medical or non-medical officer psychiatry 26. Set up voiding schedule as appropriate (every 2 hours) Outcome: Progressing Note: Evaluation of progress towards goal: fallbundle [facility] 2024 Progress note Formatting of t his note might be different from the original. DISCHARGE PLANNING NOTE Referrals sent to [facility] (P# [phone] ; F# [phone]) and to [facility] and to [facility] and to [facility] in [facility] p#: [phone] f#: [phone] [facility] 2024 Progress note Formatting of t his note might be different from the original. DISCHARGE PLANNING NOTE Follow-up Discharge Planning Progress Note Per RN during discharge transition rounds, barriers to discharge are: Accepting acute inpatient rehabilitation center. Discharge Plan: Patient Support Specialist followed up with patient, spouse and patient sister at bedside. Updated, [facility], not accepting, not in network [...] Discussed lower levels of care such as [facility] and Home care. Patient spouse and sister verbalized understanding. Choices received. [facility] tasked to send referrals. Attempted to contact Jaciel Venegas, admission office closed on weekend. Care Navigation will continue to follow for any discharge needs. - Shweta Delgado RN 07/14/24 1:22 PM [facility] 07-13-2024 Plan of care note Problem: Safety [...] at the bedside 7. Instruct patient/ patient sales training representative about use of safety devices 8. Include patient/ patient sales training representative in decisions related to safety Outcome: Progressing Note: Evaluation of progress towards goal: Proper identifiers used with patient care and medication administration. Remains free of injury during shift Problem: Knowledge Deficit Goal: Patient/patient sales training representative demonstrates understanding of disease process, treatment [...] Collaborate with ancillary departments 14. Include patient/patient sales training representative in decisions related to anxiety Outcome: [...] be free from fall Description: Interventions: 1. Maxbass to environment 2. Hourly rounds addressing the [...] non-skid footwear 11. Teach patient and patient sales training representative to maintain environment for safety and [...] (cane, walker) within reach 19. Request patient sales training representative bring adaptive equipment/mobility aids from home or obtain and provide as needed 20. Consult pharmacy regarding effects of med's affecting mobility, cognition, and alternatives 21. Obtain physician order for PT if risk factors associated with mobility are present 22. Obtain physician order for OT as appropriate 23. Utilize diversional activities 24. Educate patient and patient sales training representative how to maintain a safe environment during visitation times (notify nurse prior to leaving bedside) 25. Consider appropriateness of medical or non-medical officer psychiatry 26. Set up voiding schedule as appropriate (every 2 hours) Outcome: Progressing Note: Evaluation of progress towards goal: Call light within reach. Remains free of fall or injury. Environment free of clutter. Problem: Safety - Medical Restraint Goal: Remains free of injury from restraints (Restraint for Interference with Law Firm Partner) Description: INTERVENTIONS: 1. Determine that other, less [...] Free from restraint(s) (Restraint for Interference with Law Firm Partner) Description: INTERVENTIONS: 1. ONCE/SHIFT or MINIMUM Q12H: [...] safety; individualizes the safety outcome Outcome: Completed [facility] [employer] [facility] 07-13-2024 Progress note Formatting of t his note might be different from the original. Per Lesia VILLANUEVA patient's and sister were very upset that [facility] did not accept patient. They declined to offer any other choices for facilities to her at this time. Lesia encouraged them to allow her to make referrals to some TBI facilities at [facility] and in [place] but at this time they are angry that [facility] did not accept patient. Patient Support Specialist will request SW follow up with them in the morning to obtain choices to continue developing a transition of care plan. [facility] 07-13-2024 Progress note Formatting of t his note might be different from the original. DISCHARGE PLANNING NOTE Referral sent to [facility] P#[phone]; F#[phone]); [facility] P# [phone] [calling report];/[facility] (P# [calling report]; F# ) [facility] 07-13-2024 Progress note Formatting of t his note might be different from the original. DISCHARGE PLANNING NOTE Per RN during discharge transition rounds, barriers to discharge are: Telesitter, PMR re-eval, Seroquel dose adjustment. Discharge Plan: IPR for TBI rehab. PT/OT recommended IPR. CN met with and sister Earlene. wants a referral sent to [facility]. CN discussed discharge and making referrals to other TBI/ IPR rehabs in the state, and sister stated they are putting all their zak in [facility] being able to accept the patient. Hvac Estimator will continue to follow for any discharge needs. - Lesia Caba RN 07/13/24 12:18 PM Addendum: [facility] is not in network with patients [employer]. gave CN two more choices : [facility] IPR and [facility] rehab. [facility] tasked to send referrals. and sister are calling insurance to ask about a one time contract to [facility]. Ethel , [facility] rep, stopped in to talk to and sister. - Lesia Caba RN 07/13/24 2:10 PM Addendum: Patient's and sister asked CN to listen and talk to insurance claims processor regarding a one time approval for the IPR: [facility]. Lumber Racker Xiomy with [employer] stated attending or managing physician needs to document patient's health status and progression, information on why the patient needs to go this specific facility for rehab, include diagnosis codes and services codes. Fax: Prior Auth Request to [phone] attn: Prior Auth Request at [facility]. CN sent pic chat to Dr. Nichol [...] - Lesia Caba RN 07/13/24 3:51 PM [facility] 07-13-2024 Progress note Formatting of t his note might be different from the original. DISCHARGE PLANNING NOTE Referral to [facility] (P# ; F# ) [facility] 07-13-2024 Progress note Formatting of t his [...] reflux disease) High cholesterol Perforated sigmoid colon ([facility]) Past Surgical History: Procedure Laterality Date ARM EXPLORATION WITH REPAIR LACERATED ULNAR ARTERY Left 11/24/2019 Performed by Skyler Bowen MD at [facility] 3YEARS AGO COLOSTOMY CLOSURE Therapy Plan Need [...] early mobility guidelines. Equipment: gait belt, telemetry Telemetry/Cash Posting Representative: Yes Oxygen Used: room air Other: fall [...] and pants. Patient was able to static business reporting developer front of toilet with contact guard. Patient was unable to void due to trouble with processing, safety and judgement. Home Management - IADL Other: patient has trouble executing tasks. patient was able to ambulate into bathroom with contact guard. patient required min assist to doff underware and pants. Patient was able to static business reporting developer front of toilet with contact guard. Patient [...] problems. Principal Problem: Dementia with behavioral disturbance ([facility]) Active Problems: Altered mental status Status post colostomy, follow-up exam ([facility]) [facility] [employer] [facility] 07-13-2024 Progress note Formatting of t [...] from admission 07/06 as a transfer from [facility] for neurological work up. Patient diagnosed with early onset dementia 2022, per spouse report after prison and med changes cognitive status had improved and stabilized prior to fall in May 2024. 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 Pt discharged to inpatient treatment facility and returned to [facility] for scheduled MRI. 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 Principal Problem: Dementia with behavioral disturbance ([facility]) Active Problems: Altered mental status Status post colostomy, follow-up exam ([facility]) [facility] 07-12-2024 Plan of care note Problem: Safety [...] at the bedside 7. Instruct patient/ patient sales training representative about use of safety devices 8. Include patient/ patient sales training representative in decisions related to safety Outcome: Progressing Note: Evaluation of progress towards goal: Patient remains injury and fall free. Safety precautions in place: call light within reach, bed in lowest position, personal belongings within reach, oriented to environment, and non-slip footwear on. Problem: Knowledge Deficit Goal: Patient/patient sales training representative demonstrates understanding of disease process, treatment [...] Collaborate with ancillary departments 14. Include patient/patient sales training representative in decisions related to anxiety Outcome: Progressing Note: Evaluation of progress towards goal: Patient's has at bedside to help with spells of anxiety. Problem: Moderate - High Risk Fall Score Description: Gallegos Fall Score of =/> 25 or indicated by [facility] Assessment Goal: Patient should be free from fall Description: Interventions: 1. Maxbass to environment 2. Hourly rounds addressing the [...] non-skid footwear 11. Teach patient and patient sales training representative to maintain environment for safety and [...] (cane, walker) within reach 19. Request patient sales training representative bring adaptive equipment/mobility aids from home or obtain and provide as needed 20. Consult pharmacy regarding effects of med's affecting mobility, cognition, and alternatives 21. Obtain physician order for PT if risk factors associated with mobility are present 22. Obtain physician order for OT as appropriate 23. Utilize diversional activities 24. Educate patient and patient sales training representative how to maintain a safe environment during visitation times (notify nurse prior to leaving bedside) 25. Consider appropriateness of medical or non-medical officer psychiatry 26. Set up voiding schedule as appropriate (every 2 hours) Outcome: Progressing Note: Evaluation of progress towards goal: Patient remains injury and fall free. Safety precautions in place: call light within reach, bed in lowest position, personal belongings within reach, oriented to environment, and non-slip footwear on. Problem: Safety - Medical Restraint Goal: Remains free of injury from restraints (Restraint for Interference with Law Firm Partner) Description: INTERVENTIONS: 1. Determine that other, less [...] Free from restraint(s) (Restraint for Interference with Law Firm Partner) Description: INTERVENTIONS: 1. ONCE/SHIFT or MINIMUM Q12H: [...] nutrition and hydration, hygiene, ROM, elimination needs [facility] 07-12-2024 Progress note Formatting of t his note might be different from the original. DISCHARGE PLANNING NOTE Per RN during discharge transition rounds, barriers to discharge are: PMR consult today, 2 point restraints, telesitter Discharge Plan: TBD. PMR is requesting PT/OT notes. Will wait for therapy input. not available this afternoon. CN escalated this case to CN leadership. Hvac Estimator will continue to follow for any discharge needs. - Lesia Caba RN 07/12/24 3:24 PM [facility] 07-12-2024 Plan of care note Problem: Safety [...] at the bedside 7. Instruct patient/ patient sales training representative about use of safety devices 8. Include patient/ patient sales training representative in decisions related to safety Outcome: Progressing Note: Evaluation of progress towards goal: Patient remains injury free at present time. Safe environment provided and maintained. Medications administered using 5 rights. Problem: Knowledge Deficit Goal: Patient/patient sales training representative demonstrates understanding of disease process, treatment [...] Collaborate with ancillary departments 14. Include patient/patient sales training representative in decisions related to anxiety Outcome: Progressing Note: Evaluation of progress towards goal: Patient has family at bedside assisting with anxiety. Problem: Safety - Medical Restraint Goal: Remains free of injury from restraints (Restraint for Interference with Law Firm Partner) Description: INTERVENTIONS: 1. Determine that other, less [...] Free from restraint(s) (Restraint for Interference with Law Firm Partner) Description: INTERVENTIONS: 1. ONCE/SHIFT or MINIMUM Q12H: [...] assess q2 restraints, qshift assessed for necessity. [facility] 07-12-2024 Progress note Formatting of t his [...] continue to follow along. Prognosis Services: Skilled PEDIATRIC PHYSICAL THERAPY ASSISTANT services to address the above deficits [...] Moderate Deductive Reasoning: Moderate Safety/Judgement: Exceptions to WF Novel Situations: Severe Routine Tasks: Moderate Unable [...] Speech Therapy Care Plan (Active) Template: - [facility] Speech Problem: Auditory Comprehension Dates: Start: 07/12/24 Disciplines: PEDIATRIC PHYSICAL THERAPY ASSISTANT Goal: LTG: Patient will comprehend communication related to basic medical and social needs and utilize compensatory strategies to maintain safety in a functional living environment Dates: Start: 07/12/24 Expected End: 08/12/24 Disciplines: PEDIATRIC PHYSICAL THERAPY ASSISTANT Goal: STG: Patient will answer complex yes/no questions with 90% accuracy with minimal cueing Dates: Start: 07/12/24 Expected End: 08/12/24 Disciplines: PEDIATRIC PHYSICAL THERAPY ASSISTANT Goal: STG: Patient will complete 1-3 step commands with 90% accuracy with minimal cueing Dates: Start: 07/12/24 Expected End: 08/12/24 Disciplines: PEDIATRIC PHYSICAL THERAPY ASSISTANT Goal: STG: Patient will complete simple, phrase level auditory comprehension tasks with 90% accuracy with minimal cueing Dates: Start: 07/12/24 Expected End: 08/12/24 Disciplines: PEDIATRIC PHYSICAL THERAPY ASSISTANT Problem: Cognitive Linguistic Dates: Start: 07/12/24 Disciplines: PEDIATRIC PHYSICAL THERAPY ASSISTANT Goal: LTG: Patient will display functional cognitive-linguistic skills to demonstrate appropriate communication and safety within daily activities in a functional living environment Dates: Start: 07/12/24 Expected End: 08/12/24 Disciplines: PEDIATRIC PHYSICAL THERAPY ASSISTANT Goal: STG: Patient will demonstrate sustained attention by maintaining focus during a task for 10 minutes with minimal assistance Dates: Start: 07/12/24 Expected End: 08/12/24 Disciplines: PEDIATRIC PHYSICAL THERAPY ASSISTANT Goal: STG: Patient will be appropriately oriented to person, place, time and situation with 90% accuracy with minimal cueing Dates: Start: 07/12/24 Expected End: 08/12/24 Disciplines: PEDIATRIC PHYSICAL THERAPY ASSISTANT Goal: STG: Patient will recall information discussed during therapy session via retelling/answering questions with 90% accuracy with minimal cueing Dates: Start: 07/12/24 Expected End: 08/12/24 Disciplines: PEDIATRIC PHYSICAL THERAPY ASSISTANT Problem: High Level Language Dates: Start: 07/12/24 Disciplines: PEDIATRIC PHYSICAL THERAPY ASSISTANT Goal: LTG: Patient will demonstrate use of self-awareness, goal setting, planning, initiation, self-monitoring and problem solving during daily activities to improve safety and awareness in a functional living environment Dates: Start: 07/12/24 Expected End: 08/12/24 Disciplines: PEDIATRIC PHYSICAL THERAPY ASSISTANT Goal: STG: Patient will sequence 4-6 steps to a task (verbal, written, pictures) with 90% accuracy with minimal cueing Dates: Start: 07/12/24 Expected End: 08/12/24 Disciplines: PEDIATRIC PHYSICAL THERAPY ASSISTANT Goal: STG: Patient will provide 3 appropriate solutions to problems of daily living with 90% accuracy with minimal cueing Dates: Start: 07/12/24 Expected End: 08/12/24 Disciplines: PEDIATRIC PHYSICAL THERAPY ASSISTANT Goal: STG: Patient will demonstrate functional problem solving and safety awareness with 90% accuracy in daily living tasks in order to increase safe interactions with environment and decrease assistance from caregivers Dates: Start: 07/12/24 Expected End: 08/12/24 Disciplines: PEDIATRIC PHYSICAL THERAPY ASSISTANT Problem: Verbal Expression Dates: Start: 07/12/24 Disciplines: PEDIATRIC PHYSICAL THERAPY ASSISTANT Goal: LTG: Patient will utilize compensatory strategies to communicate wants and needs effectively to different conversational partners, maintain safety and participate socially in a functional living environment Dates: Start: 07/12/24 Expected End: 08/12/24 Disciplines: PEDIATRIC PHYSICAL THERAPY ASSISTANT Goal: STG: Patient will respond to simple/complex open ended questions during activities of daily living with 90% accuracy with minimal cueing Dates: Start: 07/12/24 Expected End: 08/12/24 Disciplines: PEDIATRIC PHYSICAL THERAPY ASSISTANT Goal: STG: Patient will maintain topic of conversation to decrease tangential speech with 90% accuracy with minimal cueing Dates: Start: 07/12/24 Expected End: 08/12/24 Disciplines: PEDIATRIC PHYSICAL THERAPY ASSISTANT Speech Therapy Care Plan (Resolved) There are no resolved problems. Principal Problem: Dementia with behavioral disturbance ([facility]) Active Problems: Altered mental status Status post colostomy, follow-up exam ([facility]) [facility] Miscellaneous Notes Patient's sister, Earlene (not on HIPAA), called in asking to speak with Dr Price regarding patient's admission at [facility]. Patient had a tele consult with Dr Price on 07/03/24. Earlene would like to discuss some concerns that she has with Dr Price and possibly set up a hospital follow up. She is asking for a call back to further discuss [phone] CALLED AND SPOKE TO EARLENE TO LET HER KNOW THAT NOTHING CAN BE DISCUSSED WITH HER DUE TO HER NOT BEING ON PATIENTS HIPAA. EARLENE UNDERSTOOD Patient's spouse [phone] stated that they would like a call back to discuss [facility] stay. Called and spoke to patients and told her Dr Price seen Estella on a consultation on 07/03/24 and is no longer under his care. Dr Price consulted because he was it application support analyst and that the patient is still in [...] her insurance company. documented in this encounter [facility] Telephone encounter Note Patient's sister, Earlene (not on HIPAA), called in asking to speak with Dr Price regarding patient's admission at [facility]. Patient had a tele consult with Dr Price on 07/03/24. Earlene would like to discuss some concerns that she has with Dr Price and possibly set up a hospital follow up. She is asking for a call back to further discuss [phone] [facility] 07-12-[facility]24 Telephone encounter Note CALLED AND SPOKE TO EARLENE TO LET HER KNOW THAT NOTHING CAN BE DISCUSSED WITH HER DUE TO HER NOT BEING ON PATIENTS HIPAA. EARLENE UNDERSTOOD [facility] 07-12-2024 Telephone encounter Note Patient's spouse [phone] stated that they would like a call back to discuss [facility] stay. [facility] 07-12-2024 Telephone encounter Note Called and spoke to patients and told her Dr Price seen Estella on a consultation on 07/03/24 and is no longer under his care. Dr Price consulted because he was it application support analyst and that the patient is still in [...] the care team and her insurance company. [facility] 07-12-2024 Consult note Associated Order (s): IP CONSULT TO PHYSICAL MEDICINE REHAB Images from the original note were not included. PHYSICAL MEDICINE AND REHABILITATION CONSULT Date of Admission: 07/06/2024 7:28 AM Referring Physician: Nichol Heath MD PCP: JAE LOPEZ MD Chief Compliant: Principal Problem: Dementia with behavioral disturbance ([facility]) Active Problems: Altered mental status Status post colostomy, follow-up exam ([facility]) Reason for Consultation: [facility] Physicians/Services Consulting Providers Provider Service Specialty Mina [...] reflux disease) High cholesterol Perforated sigmoid colon ([facility]) PSH Past Surgical History: Procedure Laterality Date ARM EXPLORATION WITH REPAIR LACERATED ULNAR ARTERY Left 11/24/2019 Performed by Skyler Bowen MD at [facility] [place] 3YEARS AGO COLOSTOMY CLOSURE Allergies Allergies Allergen [...] mg/dL Cytology Collection Time: 07/10/24 9:39 AM [facility] [address] [place] [address] Cytology Consultation Patient Name:ESTELLA JEFFERY:1965 (Age: 58)Gender:MTaken:07/10/2024Report ed:07/11/2024 16:49Physician(s):Arnulfo Haley M.D. ([phone])Copy To:Quinton Harrell M.D. Rec. #:[id number]: #[id number] Final Cytologic Diagnosis Cerebrospinal fluid: No malignant cells identified. 07/11/2024 Interpretation performed at [facility] [address] [place] [address], License number: [id number].Electronically Signed Out By Derick Lorenz MD Additional Report(s): Flow Cytometry-Surg/BM/NG Date Reported: # Immunophenotyping antibodies tested: CD3, CD4, CD5, CD7, CD8, CD19, CD20, CD45, [place], and Lambda. Immunophenotyping Comment: Immunophenotyping has been used in this diagnostic evaluation. This test was developed and its performance characteristics determined by the [facility] Department. 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 Also received is one cytospin slide from Hematology. Source of Specimen Cerebrospinal fluid Non INFORMATION ASSURANCE ThinPrep, Cytospin Slide Fee Code(s): 1; 31034 VDRL, Spinal Fluid Collection Time: 07/10/24 9:39 [...] Assessment/Plan Principal Problem: Dementia with behavioral disturbance ([facility]) Active Problems: Altered mental status Status post colostomy, follow-up exam ([facility]) Acute mental status change patient also was [...] you for the referral. Nito Mirza MD [employer] Work Phone: 07-12-2024 Plan of care note Problem: Safety - Medical Restraint Goal: Remains free of injury from restraints (Restraint for Interference with Law Firm Partner) Description: INTERVENTIONS: 1. Determine that other, less [...] Free from restraint(s) (Restraint for Interference with Law Firm Partner) Description: INTERVENTIONS: 1. ONCE/SHIFT or MINIMUM Q12H: [...] nutrition and hydration, hygiene, ROM, elimination needs [employer] 07-12-2024 Progress note Formatting of t his note might be different from the original. BEHAVIORAL RESTRAINTS PROVIDER ONE HOUR [id number] EVALUATION NOTE Estella Jeffery was evaluated on [...] and others. Jackson Peterson PA-C 07/12/24 0058 [employer] Work Phone: 07-11-2024 Plan of care note [...] at the bedside 7. Instruct patient/ patient sales training representative about use of safety devices 8. Include patient/ patient sales training representative in decisions related to safety Outcome: Progressing Note: Evaluation of progress towards goal: Patient remains injury and fall free. Safety precautions in place: call light within reach, bed in lowest position, personal belongings within reach, oriented to environment, and non-slip footwear on. Problem: Knowledge Deficit Goal: Patient/patient sales training representative demonstrates understanding of disease process, treatment [...] Collaborate with ancillary departments 14. Include patient/patient sales training representative in decisions related to anxiety Outcome: Progressing Note: Evaluation of progress towards goal: Patient has at bedside aiding in assisting with anxiety. Problem: Moderate - High Risk Fall Score Description: Gallegos Fall Score of =/> 25 or indicated by [facility] Assessment Goal: Patient should be free from fall Description: Interventions: 1. Maxbass to environment 2. Hourly rounds addressing the [...] non-skid footwear 11. Teach patient and patient sales training representative to maintain environment for safety and [...] (cane, walker) within reach 19. Request patient sales training representative bring adaptive equipment/mobility aids from home or obtain and provide as needed 20. Consult pharmacy regarding effects of med's affecting mobility, cognition, and alternatives 21. Obtain physician order for PT if risk factors associated with mobility are present 22. Obtain physician order for OT as appropriate 23. Utilize diversional activities 24. Educate patient and patient sales training representative how to maintain a safe environment during visitation times (notify nurse prior to leaving bedside) 25. Consider appropriateness of medical or non-medical officer psychiatry 26. Set up voiding schedule as appropriate (every 2 hours) Outcome: Progressing Note: Evaluation of progress towards goal: Patient remains injury and fall free. Safety precautions in place: call light within reach, bed in lowest position, personal belongings within reach, oriented to environment, and non-slip footwear on. [facility] 07-11-2024 Consult note Associated Order (s): IP CONSULT TO PSYCHIATRY PSYCHIATRIC EVALUATION No contraindications for seclusion No contraindications for restraint CHIEF COMPLAINT: Dementia with behavioral disturbance ([facility]) Estella Jeffery is a 58 y.o. male who presents with Dementia with behavioral disturbance ([facility]-HCC) .he is HISTORY OF PRESENT ILLNESS: The patient is a 58-year-old [place] male treatment at the [facility] for the patient has a substantial history of dyslipidemia, sleep apnea, type 2 diabetes mellitus, recent diagnosed history of early-onset Alzheimer's dementia, an epileptic disorder in remission, as well as a recent admission to [facility] for altered mental status. An [...] discharged to a memory care unit or usp that is well-versed in the treatment of [...] 11/24/2019 Performed by Skyler Bowen MD at [facility] [place] 3YEARS AGO COLOSTOMY CLOSURE Medications Prior to [...] to a memory care unit or a usp that is well-versed in management of memory [...] diversion. Mina Franks MD 07/11/2024 1:11 PM [facility] 07-11-2024 Progress note Formatting of t his note might be different from the original. DISCHARGE PLANNING NOTE Per RN during discharge transition rounds, barriers to discharge are: re-consulting psych today, telesitter and soft restraints, MRI and LP completed yesterday, patient behaviors are worse at night, unpredictable and confused. Discharge Plan: TBD. [facility] psych stated [facility] was sent a referral and they have declined. Waiting input from psych. [employer] will continue to follow for any discharge needs. - Lesia Caba RN 07/11/24 12:06 PM Late entery: CN met with patient, Kari, and sister Earlene on Tuesday afternoon. and sister want the patient to go to a Traumatic Brain Injury rehab unit. CN began researching TBI Rehab units in the area, reported back to the and sister after finding TBI rehab units in [facility]. Sister asked for me to look in [facility]. and sister do not want any referrals send until they are able to meet with the neurologist again, sister wants to look into the TBI units in the [facility] herself before any referrals are sent. - Lesia Caba RN 07/12/24 8:11 AM [facility] 07-11-2024 Progress note Formatting of t his note might be different from the original. Referral sent to [facility] to assess for admission to that center's inpatient psychiatric unit. After a clinical review and screening was completed [facility] assessed patient as inappropriate for treatment at that facility. Will alert care team. - NANCY Martines 07/11/24 10:33 AM [facility] 07-11-2024 Progress note Formatting of t his note might be different from the original. DISCHARGE PLANNING NOTE Updates to [facility] [phone] [facility] 07-11-2024 Plan of care note Problem: Safety [...] at the bedside 7. Instruct patient/ patient sales training representative about use of safety devices 8. Include patient/ patient sales training representative in decisions related to safety Outcome: Progressing Note: Evaluation of progress towards goal: Patient remains injury free at present time. Safe environment provided and maintained. Medications administered using 5 rights. Problem: Knowledge Deficit Goal: Patient/patient sales training representative demonstrates understanding of disease process, treatment [...] Collaborate with ancillary departments 14. Include patient/patient sales training representative in decisions related to anxiety Outcome: Progressing Note: Evaluation of progress towards goal: Patient has at bedside assisting with anxiety. Problem: Moderate - High Risk Fall Score Description: Gallegos Fall Score of =/> 25 or indicated by [facility] Assessment Goal: Patient should be free from fall Description: Interventions: 1. Maxbass to environment 2. Hourly rounds addressing the [...] non-skid footwear 11. Teach patient and patient sales training representative to maintain environment for safety and [...] (cane, walker) within reach 19. Request patient sales training representative bring adaptive equipment/mobility aids from home or obtain and provide as needed 20. Consult pharmacy regarding effects of med's affecting mobility, cognition, and alternatives 21. Obtain physician order for PT if risk factors associated with mobility are present 22. Obtain physician order for OT as appropriate 23. Utilize diversional activities 24. Educate patient and patient sales training representative how to maintain a safe environment during visitation times (notify nurse prior to leaving bedside) 25. Consider appropriateness of medical or non-medical officer psychiatry 26. Set up voiding schedule as appropriate (every 2 hours) Outcome: Progressing Note: Evaluation of progress towards goal: Patient currently free from falls, up standby. [facility] 07-11-2024 Plan of care note Problem: [...] injury from restraints (Restraint for Interference with Law Firm Partner) Description: INTERVENTIONS: 1. Determine that other, less [...] Free from restraint(s) (Restraint for Interference with Law Firm Partner) Description: INTERVENTIONS: 1. ONCE/SHIFT or MINIMUM Q12H: [...] nutrition and hydration, hygiene, ROM, elimination needs [facility] 07-10-2024 Progress note Formatting of t his note might be different from the original. BEHAVIORAL RESTRAINTS PROVIDER ONE HOUR [id number] EVALUATION NOTE Estella Jeffery was evaluated on [...] and others. Jackson Peterson PA-C 07/11/24 0036 [facility] 07-10-2024 Plan of care note Problem: [...] at the bedside 7. Instruct patient/ patient sales training representative about use of safety devices 8. Include patient/ patient sales training representative in decisions related to safety Outcome: [...] hygiene technique. 7. Identify and instruct patient/patient sales training representative in use of appropriate isolation precautions for identified infection/symptoms. 8. Provide and discuss with patient/patient sales training representative on educational MDRO sheet. 9. Encourage and monitor nutritional status daily and consult hardboard factory worker if indicated. 10. Implement neutropenic guidelines as needed. Outcome: Progressing Note: Evaluation of progress towards goal: Patient remains free of any signs of infection. Signs and symptoms being monitor such as fevers, chills, warm/red areas. Problem: Knowledge Deficit Goal: Patient/patient sales training representative demonstrates understanding of disease process, treatment [...] Collaborate with ancillary departments 14. Include patient/patient sales training representative in decisions related to anxiety Outcome: Progressing Note: Evaluation of progress towards goal: Patient's anxiety is at manageable level. Problem: Safety - Medical Restraint Goal: Remains free of injury from restraints (Restraint for Interference with Law Firm Partner) Description: INTERVENTIONS: 1. Determine that other, less [...] Free from restraint(s) (Restraint for Interference with Law Firm Partner) Description: INTERVENTIONS: 1. ONCE/SHIFT or MINIMUM Q12H: [...] on patient's door 9. Provide patient/ patient sales training representative with isolation education. Outcome: Progressing Note: Evaluation of progress towards goal: Discard single-use items. Clean reusable equipment. Wear gloves for direct and indirect patient care. Wash hands before and after care of patient. Problem: Moderate - High Risk Fall Score Description: Gallegos Fall Score of =/> 25 or indicated by [facility] Assessment Goal: Patient should be free from fall Description: Interventions: 1. Maxbass to environment 2. Hourly rounds addressing the [...] non-skid footwear 11. Teach patient and patient sales training representative to maintain environment for safety and [...] (cane, walker) within reach 19. Request patient sales training representative bring adaptive equipment/mobility aids from home or obtain and provide as needed 20. Consult pharmacy regarding effects of med's affecting mobility, cognition, and alternatives 21. Obtain physician order for PT if risk factors associated with mobility are present 22. Obtain physician order for OT as appropriate 23. Utilize diversional activities 24. Educate patient and patient sales training representative how to maintain a safe environment during visitation times (notify nurse prior to leaving bedside) 25. Consider appropriateness of medical or non-medical officer psychiatry 26. Set up voiding schedule as appropriate (every 2 hours) Outcome: Progressing Note: Evaluation of progress towards goal: Patient remains injury and fall free. Safety precautions in place: call light within reach, bed in lowest position, personal belongings within reach, oriented to environment, and non-slip footwear on. [facility] 07-10-2024 Plan of care note Problem: Safety [...] at the bedside 7. Instruct patient/ patient sales training representative about use of safety devices 8. Include patient/ patient sales training representative in decisions related to safety Outcome: [...] hygiene technique. 7. Identify and instruct patient/patient sales training representative in use of appropriate isolation precautions for identified infection/symptoms. 8. Provide and discuss with patient/patient sales training representative on educational MDRO sheet. 9. Encourage and monitor nutritional status daily and consult hardboard factory worker if indicated. 10. Implement neutropenic guidelines as needed. Outcome: Progressing Note: Evaluation of progress towards goal: patient remains afebrile at this time Problem: Knowledge Deficit Goal: Patient/patient sales training representative demonstrates understanding of disease process, treatment [...] Collaborate with ancillary departments 14. Include patient/patient sales training representative in decisions related to anxiety Outcome: Progressing Note: Evaluation of progress towards goal: discussed w/ patient coping strategies & dietary changes that may aid in controlling stress & anxiety. Problem: Safety - Medical Restraint Goal: Remains free of injury from restraints (Restraint for Interference with Law Firm Partner) Description: INTERVENTIONS: 1. Determine that other, less [...] Free from restraint(s) (Restraint for Interference with Law Firm Partner) Description: INTERVENTIONS: 1. ONCE/SHIFT or MINIMUM Q12H: [...] on patient's door 9. Provide patient/ patient sales training representative with isolation education. Outcome: Progressing Note: Evaluation of progress towards goal: patient remains afebrile at this time Problem: Moderate - High Risk Fall Score Description: Gallegos Fall Score of =/> 25 or indicated by [facility] Assessment Goal: Patient should be free from fall Description: Interventions: 1. Maxbass to environment 2. Hourly rounds addressing the [...] non-skid footwear 11. Teach patient and patient sales training representative to maintain environment for safety and [...] (cane, walker) within reach 19. Request patient sales training representative bring adaptive equipment/mobility aids from home or obtain and provide as needed 20. Consult pharmacy regarding effects of med's affecting mobility, cognition, and alternatives 21. Obtain physician order for PT if risk factors associated with mobility are present 22. Obtain physician order for OT as appropriate 23. Utilize diversional activities 24. Educate patient and patient sales training representative how to maintain a safe environment during visitation times (notify nurse prior to leaving bedside) 25. Consider appropriateness of medical or non-medical officer psychiatry 26. Set up voiding schedule as appropriate (every 2 hours) Outcome: Progressing Note: Evaluation of progress towards goal: patient remains free of injury & verbalizes understanding of fall prevention; call light in reach [facility] [employer] [facility] 07-10-2024 Progress note Formatting of t his note might be different from the original. DISCHARGE PLANNING NOTE Per RN during discharge transition rounds, barriers to discharge are: MRI with sedation today, LP with sedation today, restraints removed after procedures today, assess as needed for restraints, re-consult psych. Discharge Plan: TBD. KAY discussed case with colin Solorio SW Hvac Estimator will continue to follow for any discharge needs. - Lesia Caba RN 07/10/24 3:16 PM [facility] 07-10-2024 Plan of care note 07/10/24 1145: Evaluated patient after his procedures, he is calm at this time and currently not threat to himself or staff therefore we will discontinue violent restraints. He is though pulling at his lines and IV so will place bilateral soft wrist restraints. We will re-evaluate as needed Nichol Heath MD [facility] 07-10-2024 Nurse Note Patient still off unit at this time 11:58 s/p sedated MRI & LP procedure. Per neurologist, Dr Johnson, patient needs to remain flat 1-2hrs & may have regular diet. Patient Support Specialist awaiting patient return to unit & per report 1:1 sitter remains at patient bedside. [facility] 07-10-2024 Procedure note Associated Ord er(s): Lumbar Puncture Post-Procedure Diagnose(s): Dementia with behavioral disturbance ([facility]) PROCEDURE: Lumbar Puncture Date/Time: 07/10/2024 9:58 AM [...] to verify the correct patient, procedure, equipment, intelligence support officer and site/side marked as required. Anesthesia: local infiltration Anesthesia: Local Anesthetic: lidocaine 1% without epinephrine Sedation: Patient sedated: yes Lumbar space: L3-L4 interspace Patient's position: left lateral decubitus Opening pressure: 12 cm H2O Fluid appearance: clear Tubes of fluid: 4 Total volume: 17.5 ml Post-procedure: pressure dressing applied and adhesive bandage applied Procedure was completed Complications: none Arnulfo Haley MD PGY2 Neurology [facility] Cosigned by Zach Nails MD at 07/11/2024 12:41 AM EST Associated attestation - Zach Nails MD - 07/11/2024 12:41 AM EST Zach Nails MD [employer] Dept of Neurology [facility] 07-10-2024 Procedure note Associated Ord er(s): [...] to verify the correct patient, procedure, equipment, intelligence support officer and site/side marked as required. Anesthesia: local infiltration Anesthesia: Local Anesthetic: lidocaine 1% without epinephrine Sedation: Patient sedated: yes Lumbar space: L3-L4 interspace Patient's position: left lateral decubitus Opening pressure: 12 cm H2O Fluid appearance: clear Tubes of fluid: 4 Total volume: 17.5 ml Post-procedure: pressure dressing applied and adhesive bandage applied Procedure was completed Complications: none Arnulfo Haley MD PGY2 Neurology [facility] Cosigned by Zach Nails MD at 07/11/2024 12:41 AM EST Associated attestation - Zach Nails MD - 07/11/2024 12:41 AM EST Zach Nails MD [employer] Dept of Neurology [facility] documented in this encounter [facility] 07-10-2024 Nurse Note SPECIMENS X4 WERE COLLECTED, PROCESSED, AND SENT TO LAB BY DR. ARNULFO HALEY. [facility] 07-10-2024 Plan of care note Problem: [...] at the bedside 7. Instruct patient/ patient sales training representative about use of safety devices 8. Include patient/ patient sales training representative in decisions related to safety Outcome: [...] hygiene technique. 7. Identify and instruct patient/patient sales training representative in use of appropriate isolation precautions for identified infection/symptoms. 8. Provide and discuss with patient/patient sales training representative on educational MDRO sheet. 9. Encourage and monitor nutritional status daily and consult hardboard factory worker if indicated. 10. Implement neutropenic guidelines as needed. Outcome: Progressing Note: Evaluation of progress towards goal: Skin integrity remains in stable condition; remains w/o ss of infection, fever, pain, or increased discomfort. Problem: Knowledge Deficit Goal: Patient/patient sales training representative demonstrates understanding of disease process, treatment [...] of 0 - 24 or indicated by [facility] Assessment Goal: Patient should be free from fall Description: Interventions: 1. Maxbass to environment 2. Hourly rounds addressing the [...] non-skid footwear 11. Teach patient and patient sales training representative to maintain environment for safety and [...] Collaborate with ancillary departments 14. Include patient/patient sales training representative in decisions related to anxiety Outcome: [...] on patient's door 9. Provide patient/ patient sales training representative with isolation education. Outcome: Progressing Note: Evaluation of progress towards goal: Skin integrity remains in stable condition; remains w/o ss of infection, fever, pain, or increased discomfort. Problem: Moderate - High Risk Fall Score Description: Gallegos Fall Score of =/> 25 [facility] Goal: Patient should be free from fall Description: Interventions: 1. Maxbass to environment 2. Hourly rounds addressing the [...] non-skid footwear 11. Teach patient and patient sales training representative to maintain environment for safety and [...] (cane, walker) within reach 19. Request patient sales training representative bring adaptive equipment/mobility aids from home or obtain and provide as needed 20. Consult pharmacy regarding effects of med's affecting mobility, cognition, and alternatives 21. Obtain physician order for PT if risk factors associated with mobility are present 22. Obtain physician order for OT as appropriate 23. Utilize diversional activities 24. Educate patient and patient sales training representative how to maintain a safe environment during visitation times (notify nurse prior to leaving bedside) 25. Consider appropriateness of medical or non-medical officer psychiatry 26. Set up voiding schedule as appropriate (every 2 hours) Outcome: Progressing Note: Evaluation of progress towards goal: Call light within reach. Remains free of fall or injury. Environment free of clutter. [facility] 07-09-2024 Progress note Formatting of t his note might be different from the original. BEHAVIORAL RESTRAINTS PROVIDER ONE HOUR [id number]-UL-LRNB EVALUATION NOTE Estella Jeffery was evaluated on [...] 07/10/24 0522 Jackson Peterson PA-C [facility] Plan of care note Problem: Safety [...] at the bedside 7. Instruct patient/ patient sales training representative about use of safety devices 8. Include patient/ patient sales training representative in decisions related to safety Outcome: [...] hygiene technique. 7. Identify and instruct patient/patient sales training representative in use of appropriate isolation precautions for identified infection/symptoms. 8. Provide and discuss with patient/patient sales training representative on educational MDRO sheet. 9. Encourage and monitor nutritional status daily and consult hardboard factory worker if indicated. 10. Implement neutropenic guidelines as needed. Outcome: Progressing Note: Evaluation of progress towards goal: patient remains afebrile at this time Problem: Knowledge Deficit Goal: Patient/patient sales training representative demonstrates understanding of disease process, treatment [...] of 0 - 24 or indicated by [facility] Assessment Goal: Patient should be free from fall Description: Interventions: 1. Maxbass to environment 2. Hourly rounds addressing the [...] non-skid footwear 11. Teach patient and patient sales training representative to maintain environment for safety and [...] Collaborate with ancillary departments 14. Include patient/patient sales training representative in decisions related to anxiety Outcome: [...] injury from restraints (Restraint for Interference with Law Firm Partner) Description: INTERVENTIONS: 1. Determine that other, less [...] Free from restraint(s) (Restraint for Interference with Law Firm Partner) Description: INTERVENTIONS: 1. ONCE/SHIFT or MINIMUM Q12H: [...] on patient's door 9. Provide patient/ patient sales training representative with isolation education. Outcome: Progressing Note: Evaluation of progress towards goal: patient remains afebrile at this time [facility] [employer] [facility] 07-09-2024 Progress note Formatting of t his note might be different from the original. DISCHARGE PLANNING NOTE Clinical updates including sent to. [facility] (P# [phone] ; F# [phone]) via [employer] [facility] 07-09-2024 Progress note Formatting of t [...] . Thank you, Ethel Bueno RN, CDI [email or web address] The patient's Clinical Indicators include: As above CDI RESPONSE TEXT: Patient has progression of dementia causing agitation, no evidence of metabolic or toxic encephalopathy. Query created by: Ethel Bueno on 07/09/2024 5:42 AM Electronically signed by: Lonnie Baker MD 07/09/2024 3:22 PM [facility] 07-09-2024 Progress note Formatting of t his note might be different from the original. DISCHARGE PLANNING NOTE Referral sent to [facility] [address] (P# [phone] ; F# [phone]) via [employer] [facility] 07-09-2024 Progress note Formatting of t his [...] patient to return home. Psych SW following. Hvac Estimator will continue to follow for any discharge needs. - Lesia Caba RN 07/09/24 1:11 PM [facility] 07-08-2024 Plan of care note Problem: Safety [...] at the bedside 7. Instruct patient/ patient sales training representative about use of safety devices 8. Include patient/ patient sales training representative in decisions related to safety Outcome: [...] hygiene technique. 7. Identify and instruct patient/patient sales training representative in use of appropriate isolation precautions for identified infection/symptoms. 8. Provide and discuss with patient/patient sales training representative on educational MDRO sheet. 9. Encourage and monitor nutritional status daily and consult hardboard factory worker if indicated. 10. Implement neutropenic guidelines as needed. Outcome: Progressing Note: Evaluation of progress towards goal: monitor s/s of infection Problem: Knowledge Deficit Goal: Patient/patient sales training representative demonstrates understanding of disease process, treatment [...] of 0 - 24 or indicated by [facility] Assessment Goal: Patient should be free from fall Description: Interventions: 1. Maxbass to environment 2. Hourly rounds addressing the [...] non-skid footwear 11. Teach patient and patient sales training representative to maintain environment for safety and [...] Collaborate with ancillary departments 14. Include patient/patient sales training representative in decisions related to anxiety Outcome: [...] injury from restraints (Restraint for Interference with Law Firm Partner) Description: INTERVENTIONS: 1. Determine that other, less [...] Free from restraint(s) (Restraint for Interference with Law Firm Partner) Description: INTERVENTIONS: 1. ONCE/SHIFT or MINIMUM Q12H: [...] goal: fall precautions in place, hourly rounding [facility] 07-08-2024 Progress note Formatting of t his note might be different from the original. BEHAVIORAL RESTRAINTS PROVIDER ONE HOUR [id number] EVALUATION NOTE Estella Jeffery was evaluated on [...] self and others. Jackson Peterson PA-C 07/08/242014 NIGHT07/08/24-0 On reassessment patient is resting in bed [...] restraint/seclusion order: No Jackson Peterson PA-C 07/08/24 6857 NIGHT07/09/24-3:31 AM Called to bedside after patient [...] and others. Jackson Peterson PA-C 07/09/24 0344 [employer] [facility] 07-08-2024 Progress note Formatting of t his note might be different from the original. [facility] NIGHT BEHAVIORAL RESTRAINTS PROVIDER ONE HOUR [id number] EVALUATION NOTE Estella Jeffery was evaluated on [...] and others. Jackson Peterson PA-C 07/08/24 0446 [facility] 07-08-2024 Plan of care note Problem: [...] at the bedside 7. Instruct patient/ patient sales training representative about use of safety devices 8. Include patient/ patient sales training representative in decisions related to safety Outcome: [...] hygiene technique. 7. Identify and instruct patient/patient sales training representative in use of appropriate isolation precautions for identified infection/symptoms. 8. Provide and discuss with patient/patient sales training representative on educational MDRO sheet. 9. Encourage and monitor nutritional status daily and consult hardboard factory worker if indicated. 10. Implement neutropenic guidelines as needed. Outcome: Progressing Note: Evaluation of progress towards goal: Patient has no infection at this time. Problem: Knowledge Deficit Goal: Patient/patient sales training representative demonstrates understanding of disease process, treatment [...] of 0 - 24 or indicated by [facility] Assessment Goal: Patient should be free from fall Description: Interventions: 1. Maxbass to environment 2. Hourly rounds addressing the [...] non-skid footwear 11. Teach patient and patient sales training representative to maintain environment for safety and [...] Collaborate with ancillary departments 14. Include patient/patient sales training representative in decisions related to anxiety Outcome: Progressing Note: Evaluation of progress towards goal: Patient is able to manage anxiety level at this time, plan of care still ongoing. [facility] 07-07-2024 Plan of care note Problem: Safety [...] at the bedside 7. Instruct patient/ patient sales training representative about use of safety devices 8. Include patient/ patient sales training representative in decisions related to safety Outcome: [...] hygiene technique. 7. Identify and instruct patient/patient sales training representative in use of appropriate isolation precautions for identified infection/symptoms. 8. Provide and discuss with patient/patient sales training representative on educational MDRO sheet. 9. Encourage and monitor nutritional status daily and consult hardboard factory worker if indicated. 10. Implement neutropenic guidelines as needed. Outcome: Progressing Note: Evaluation of progress towards goal: monitor s/s of infection, monitor labs, standard precautions Problem: Knowledge Deficit Goal: Patient/patient sales training representative demonstrates understanding of disease process, treatment [...] of 0 - 24 or indicated by [facility] Assessment Goal: Patient should be free from fall Description: Interventions: 1. Maxbass to environment 2. Hourly rounds addressing the [...] non-skid footwear 11. Teach patient and patient sales training representative to maintain environment for safety and engage in all aspects of fall prevention program Outcome: Progressing Note: Evaluation of progress towards goal: fall precautions in place, hourly rounding, call light within reach [employer] [employer] [facility] 07-07-2024 Progress note Formatting of t [...] by: Elana Valerio MD 07/07/2024 7:10 AM [employer] [employer] [facility] 07-06-2024 Plan of care note Problem: [...] at the bedside 7. Instruct patient/ patient sales training representative about use of safety devices 8. Include patient/ patient sales training representative in decisions related to safety Outcome: [...] hygiene technique. 7. Identify and instruct patient/patient sales training representative in use of appropriate isolation precautions for identified infection/symptoms. 8. Provide and discuss with patient/patient sales training representative on educational MDRO sheet. 9. Encourage and monitor nutritional status daily and consult hardboard factory worker if indicated. 10. Implement neutropenic guidelines as needed. Outcome: Progressing Note: Evaluation of progress towards goal: Patient remains free of any signs of infection. Signs and symptoms being monitor such as fevers, chills, warm/red areas. Problem: Knowledge Deficit Goal: Patient/patient sales training representative demonstrates understanding of disease process, treatment [...] of 0 - 24 or indicated by [facility] Assessment Goal: Patient should be free from fall Description: Interventions: 1. Maxbass to environment 2. Hourly rounds addressing the [...] non-skid footwear 11. Teach patient and patient sales training representative to maintain environment for safety and [...] Description: INTERVENTIONS: 1. Encourage patient or legal sales training representative to report early pain and ask [...] per policy 9. Teach patient or legal sales training representative interventions for comforting Outcome: Completed Note: Evaluation of progress towards goal: Patient has no complaints of pain. Reassessed per policy. [employer] 07-06-2024 Progress note Formatting of t his note might be different from the original. An attempt was made to interview the patient today in the presence of his . The patient refused and asked the script writer to leave stating that he does not want a psychiatric evaluation. Psychiatry will sign off. [employer] Work Phone: 07-06-2024 Progress note Formatting of t his note is different from the original. Images from the original note were not included. DISCHARGE PLANNING NOTE Patient Support Specialist met with patient, introduced self, and explained [...] reflux disease) High cholesterol Perforated sigmoid colon ([facility]) Prior to admission patient was living with spouse/significant other and self care. Medical equipment patient used prior to admission includes: CPAP. Patient spouse denies need for transportation/ food/ prescription medication assistance resources. PCP: JAE LOPEZ MD Pharmacy:[facility] PCP and pharmacy confirmed with [...] - Jac Austin RN 07/06/24 4:01 PM [facility] 07-06-2024 Progress note Formatting of t his note might be different from the original. Called spouse and left message. Will await call back. - NANCY Martines 07/06/24 3:25 PM [facility] 07-06-2024 Progress note Formatting of t his [...] spouse. - NANCY Martines 07/06/24 11:02 AM [facility] 07-06-2024 Consult note Associated Order (s): IP CONSULT TO NEUROLOGY Images from the original note were not included. [facility] Neu[facility] General Neurology Consult Note Primary Neurology service: [phone] Chief Complaint: HPI: Estella Jeffery is a [...] with complete remission. He follows up with [facility] Neurology and had underwent a heavy [...] decline, Patient had presented to ED in [place] June 18 after waking up not oriented and delusional. Then June 25 he woke up again not knowing where he is delusional thinking his sister was an intruder so he was brought to [facility] and discharged later that evening. He was seen by child welfare social worker referred to a mental health center and per family his mental status had worsened and they felt he was being overmedicated with Benadryl. So family decided to discharge home from the hospital and took him to [facility] 07/03 for hallucinations/agitation/paranoi a and family [...] so patient was transferred to [facility] for higher level of care. On my evaluation patient was restless fidgeting and did not allow me to speak him or enter the room, he would tell me his family members names what refused to tell me his name asked me to leave the room. I could not do any assessment [place] test or neurological exam. Per family patient had not received his morning medication. History: Past Medical History/Surgical History: Active Ambulatory Problems Diagnosis Date Noted Laceration of left ulnar artery 11/24/2019 Resolved Ambulatory Problems Diagnosis Date Noted No Resolved Ambulatory Problems Past Medical History: Diagnosis Date GERD (gastroesophageal reflux disease) High cholesterol Perforated sigmoid colon ([facility]) Family History: Family History Problem Relation Age [...] markers confirmed early onset Alzheimer's established in [facility] October 2022 in addition to hyperlipidemia, GERD, dm 2. Patient was transferred found [facility] for higher level of care and workup of sharp decline in cognition since May 2024. Patient had presented multiple times to the ED and admitted [facility] for delusional thinking/hallucinations/agitatio n. On [...] once reconciled. Elana Valerio MD PGY-1 Neurology [facility] 07/06/24 9:[address] Sofia This patient is being followed by the Neurology Resident service. Contact attending directly during these hours: Tuesday to 7:30-8:30 A.M. to Tuesday 12-1:00 p.m. Primary Neurology service: [phone] Consult neurology service: [phone] Resident Stroke Service: [phone] If the patient belongs to the Stroke ASHLEE service please contact the Stroke ASHLEE directly. Cosigned by Kelley Sofia MD at 07/06/2024 11:32 PM EST Associated attestation - Kelley Sofia MD - 07/06/2024 11:32 PM EST Kelley Sofia MD Neurology [facility] 07-06-2024 History and physical note Images from the original note were not included. [facility] Hospitalists History and Physical 07/06/2024 Patient Name: [...] perforated colon who presents to [facility] as a transfer from [facility] for neurologic evaluation. History obtained from sister [...] reflux disease) High cholesterol Perforated sigmoid colon ([facility]) Past Surgical History: Procedure Laterality Date ARM EXPLORATION WITH REPAIR LACERATED ULNAR ARTERY Left 11/24/2019 Performed by Skyler Bowen MD at [facility] 3YEARS AGO COLOSTOMY CLOSURE Allergy: Diphenhydramine Prior [...] in full via EMR. Nichol Heath MD [facility] 07-06-2024 History and physical note Images from the original note were not included. [facility] Hospital[facility] History and Physical 07/06/2024 Patient [...] perforated colon who presents to [facility] as a transfer from [facility] for neurologic evaluation. History obtained from sister [...] 11/24/2019 Performed by Skyler Bowen MD at [facility] 3YEARS AGO COLOSTOMY CLOSURE Allergy: Diphenhydramine Prior [...] Nichol Heath MD documented in this encounter [facility] 06-26-2024 Note Progress Note-Nurse Attempted to call office due to family requesting additional lab work (PSA level). There was no answer at the office and no option to leave voicemail. Intrusted family to call later on today to talk to Dr. Graham's home health scheduler about obtained PSA level [facility] 03-09-2024 Telephone encounter Note I have refilled your prescription. A review of your chart shows that you have not had a follow up visit in more than 1 year. Refills for medications require at least 1 follow up visit per year. Please call: to schedule an appointment. Lisandra Gomez APRN.CNP [facility] 03-09-2024 Miscellaneous Notes I have refilled your prescription. A review of your chart shows that you have not had a follow up visit in more than 1 year. Refills for medications require at least 1 follow up visit per year. Please call: to schedule an appointment. Lisandra Gomez APRN.CNP documented in this encounter [facility] 01-11-2024 Hospital Discharge instructions Patient Education [...] treatment? Where to find more information The [place] [employer]: www.cancer.org [place] [employer] Association: www.auanet.org Contact a health care [...] provider. Document Revised: 11/30/2021 Document Reviewed: 11/30/2021 eEye Patient Education 2022 [employer]. Follow Up Care 12/23/2023 09:42:08 With:Santos PEÑA, Danni Portillo, URL, URO Address: When: Unknown Comments:Pending MRI, may proceed with fusion bx [facility] 01-11-2024 Note Urology Office/Clini c Note [...] repair with mesh. [place] [facility] [place] -Will [...] Biopsy of pro (more content not included)... [facility] Comment on above: Result Comment: Elec [...] Where to find more information ? The [place] [employer]: www.cancer.org ? [place] U[employer] Association: www.auanet.org Contact a health care [...] of the rectum. (more content not included)... [facility] 12-06-2023 Telephone encounter Note The following approved medication requests have been transmitted electronically. Requested Prescriptions Signed Prescriptions Disp Refills donepezil (ARICEPT) 5 mg tablet 90 tablet 0 Sig: Take 1 tablet by mouth once daily. Authorizing Provider: AGUSTINA PLASCENCIA Ordering User: TANISHA JEFFERS APRN.CNP [facility] 12-06-2023 Miscellaneous Notes The following approved medication requests have been transmitted electronically. Requested Prescriptions Signed Prescriptions Disp Refills donepezil (ARICEPT) 5 mg tablet 90 tablet 0 Sig: Take 1 tablet by mouth once daily. Authorizing Provider: AGUSTINA PALSCENCIA Ordering User: TANISHA JEFFERS APRN.CNP documented in this encounter [facility] 03-07-2023 Miscellaneous Notes Summary: [facility] Baseline Interest A voicemail was left about participation in [facility] research study. documented in this encounter [facility] 02-09-2023 Miscellaneous Notes Vovicit message sent documented in this encounter [facility] 02-08-2023 Miscellaneous Notes Summary: [facility] Potential Participant A call was made to of patient to talk about interest in participating in [facility]. expressed interest in participating. The [facility] consent document was sent through email. A call will be made in a week to discuss enrollment. documented in this encounter [facility] 02-04-2023 Miscellaneous Notes Images from the original note were not included. documented in this encounter [facility] 02-02-2023 Miscellaneous Notes The following approved medication requests have been transmitted electronically. Requested Prescriptions Signed Prescriptions Disp Refills donepezil (ARICEPT) 5 mg tablet 90 tablet 1 Sig: TAKE 1 TABLET BY MOUTH EVERY DAY Authorizing Provider: AGUSTINA PLASCENCIA Ordering User: KIMO PATE APRN.CNP documented in this encounter [facility] 01-13-2023 Miscellaneous Notes Patient returned call, requested a call back. I left a message explaining the 4% requirement from Medicare, and advised to contact Medicare if they have insurance questions. Advised to call me back if they had other concerns or questions. Sonal Weinstein APRN.EFRAIN documented in this encounter [facility] 12-03-2022 Miscellaneous Notes Faxed order, office notes, demographics, and sleep study to: DME name: [facility] fax: [phone] DME ph: documented in this encounter [facility] 12-02-2022 History of Present illness Narrative Images from the original note were not included. [facility] Follow up/ Established [...] will have a prescription sent to a [employer] company - [employer] who will be calling you in the next 1-2 weeks or so. Please call them directly or us if you do not hear from them in this time frame. - You should be eligible for new supplies approximately every 3-6 months, depending on your insurance coverage. - If your mask doesn't fit well, call the [employer] company before 30 days are up to get a new mask without an additional charge. - Insurance requires regular usage and periodic office follow ups for PAP therapy, to continue to cover supplies. - Follow up in 2 months in the office. Recommend scheduling this appointment now to ensure the best time for you. Roosevelt Merlos PGY-4 Sleep fellow [facility] I have supervised and discussed the patient case with the Sleep Medicine Fellow including interviewing the patient in person and have updated the electronic medical record where necessary. I agree with the history, physical, impression and recommendations as documented. Gera Cardona DO, CBSM, ABSM Clinical Staff Sleep Medicine [facility] [address] [place] [address] I have communicated my name and active licensure. The patient's identity and physical location were verified at the time of this visit. Either the patient or their legal sales training representative has been informed of the risks and benefits of -- and alternatives to -- treatment through a remote evaluation and consents to proceed with the evaluation remotely. Interval history : Here for follow up for SHELBY follow up after starting PAP therapy. ; SLEEP APNEA Sleep apnea type : SHELBY, Most Recent Apnea-Hypopnea Index (AHI): 47.7 Treatment : PAP therapy DME: [employer] PAP History: Uses Bilevel PAP for 2 [...] or near accidents due to drowsy drivin Leggett Sleepiness Scale 04/28/2022 Score Incomplete PROMIS CAT [...] study. All questions were answered. Sonal Weinstein APRN.WIRE BRUSH MAKER I spent a total of 30 minutes on the date of the service which included preparing to see the patient, shua-ga-kdjz patient care, completing clinical documentation, obtaining and/or reviewing separately obtained history, counseling and educating the patient/family/caregiver, ordering medications, tests, or procedures, and communicating results to the patient/family/caregiver. documented in this encounter [facility] 11-17-2022 Instructions Agustina Plascencia MD - [...] are our recommendations: - Cognitive therapy at [facility]. - Aricept 5 mg daily with breakfast - Namenda 5 twice a day with breakfast and dinner. - Maintain physically, socially and cognitively healthy lifestyle. - Schedule in person report in February 2023. Please schedule next visit with Agustina Plascencia MD, PhD or Kimo Pate NP in person in February -March 2023 To schedule testing and visits please call: [phone]. If you have new, unexpected concerns in between visits please call our office at [phone] ( you will be able to reach one of our nurses). [facility] fax [phone] Ways to keep your brain healthy: Follow [...] fish and fish high in mercury (swordfish, Lao sea martinez, orange roughy, ahi tuna, albacore [...] resources are: The Alzheimer's Association (web site: alz.org/[place]) available 24 hours a day, 7 days per week. Contact: Local: ; Toll free: [phone] Family [employer] [place] (web site: Caregiver.org) MARLEEN Hawkins-- a secure online solution for quality information, support, and resources for family caregivers. Contact: Toll-free number: [phone] Alzheimers.gov - Find Alzheimer disease and related dementias information, resources, research and more. documented in this encounter [facility] 11-17-2022 History of Present illness Narrative Images from the original note were not included. Estella Jeffery [address] [place] [id number] November 17, 2022 [facility] Report Virtual Virtual visit with Patient and family members Chief complaint: poor memory, forgetfulness I have communicated my name and active licensure. The patient's identity and physical location were verified at the time of this visit. Either the patient or their legal sales training representative has been informed of the risks [...] that time. 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 Bradycardia. PLAN: - [facility] referral - Cognitive therapy at [facility]. - Aricept 5 mg daily [...] . Agustina Plascencia MD, PhD Geriatric Psychiatry [facility] CC: 1. No primary care provider on file., (fax) None documented in this encounter [facility] 10-12-2022 Nurse Note [facility] LUMBAR PUNCTURE NURSE DISCHARGE NOTE The patient [...] RN documented in this encounter [facility] 10-12-2022 Instructions Miguelito Chicas APRN.WIRE BRUSH MAKER - 10/12/2022 10:31 AM EDT Images from the original note were not included. [facility] Neurological [facility] GOING HOME INSTRUCTIONS POST LP HEADACHE Prevention [...] as coffee or tea You can take eedt-iwx-zmhlvcg Tylenol and/or Ibuprofen as directed INFECTION PREVENTION [...] from 8-5pm, please contact our office line [phone] and then hit 0 , please ask our administrative judge to page the provider who performed the spinal tap. -For nights or weekends, call or toll free and ask the automatic riveting machine operator the page the Neurology resident on-call. 2. If your headache is unusually severe regardless of bedrest or lasts more than two days 3. If you develop a fever 4. If you notice inflammation, pus formation or clear drainage from the site of the needle puncture You may resume your usual activities after 48 hours. documented in this encounter [facility] 10-12-2022 History of Present illness Narrative [facility] PROCEDURE FOR DIAGNOSTIC TESTING Estella Jeffery, [id number] October 12, 2022, 8:57 AM INFORMED CONSENT The risks, benefits and anticipated outcomes of the procedure, the risks and benefits of the alternatives to the procedure and the roles and tasks of the personnel to be involved were discussed with the patient, who consents to the procedure and agrees to proceed. I verify that I personally obtained Estella Jeffery's consent, Miguelito Chicas APRN.WIRE BRUSH MAKER UNIVERSAL PROTOCOL / SAFETY CHECKLIST Procedure to [...] 2022 documented in this encounter [facility] 08-12-2022 History of Present illness Narrative [...] Abs Lymph 1.00 - 4.00 k/uL 1.45 Vigo% % 6.2 Abs Vigo <0.87 k/uL 0.31 Eosin% % 0.6 Abs Eosin <0.46 k/uL 0.03 Baso% % 0.8 Abs Baso <0.11 k/uL 0.04 Immature Gran % % 0.2 IMMATURE GRANS (ABS) <0.10 k/uL <0.03 NRBC /100 WBC 0.0 Absolute nRBC <0.01 k/uL <0.01 DTYPE Auto Care Coordination Interventions: none Leah Mckeon RN documented in this encounter [facility] 08-11-2022 Instructions Agustina Plascencia MD - [...] To schedule testing and visits please call: [phone]. If you have new, unexpected concerns in between visits please call our office at [phone] ( you will be able to reach one of our nurses). [facility] fax [phone] Ways to keep your brain healthy: Follow [...] fish and fish high in mercury (swordfish, Lao sea martinez, orange roughy, ahi tuna, albacore [...] resources are: The Alzheimer's Association (web site: alz.org/new [place]) available 24 hours a day, 7 days per week. Contact: Local: ; Toll free: [phone] [facility] [place] (web site: Caregiver.org) MARLEEN Hawkins-- a secure online solution for quality information, support, and resources for family caregivers. Contact: Toll-free number: [phone] Alzheimers.gov - Find Alzheimer disease and related dementias information, resources, research and more. documented in this encounter [facility] 08-11-2022 History of Present illness Narrative Images from the original note were not included. Estella Hahnza [address] [place] [id number] August 11, 2022 Time: 2:35 PM Center [...] that time. 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 He recalls forgetting a clip/tie for his gun one day. He also failed firearm safety training which is required every months. He states he is still able to perform ADLs at home and still able to work in his other job with [employer]. 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 Agustina Plascencia MD, PhD Geriatric Psychiatry [facility] CC: 1. No primary care provider on file., (fax) None documented in this encounter [facility] 07-22-2022 History of Present illness Narrative No show. Connection aborted after 15 min. of waiting online KGR documented in this encounter [facility] 05-07-2022 Miscellaneous Notes Radiology Service Progress [...] DATA: Not applicable SIGNED BY: Nicole Huffman MRI Tech May 07, 2022 1:31 PM documented in this encounter [facility] 04-30-2022 Instructions Roosevelt Merlos MD - [...] will have a prescription sent to a [employer] ([employer] company - [employer] who will be calling you in the next 1-2 weeks or so. Please call them directly or us if you do not hear from them in this time frame. - You should be eligible for new supplies approximately every 3-6 months, depending on your insurance coverage. - If your mask doesn't fit well, call the [employer] company before 30 days are up to get a new mask without an additional charge. - Insurance requires regular usage and periodic office follow ups for PAP therapy, to continue to cover supplies. - Follow up in 2 months in the office. Recommend scheduling this appointment now to ensure the best time for you. CMS Requirements - Your insurance requires a lgtj-uw-ogce follow up visit within a 31-90 day [...] supplies. documented in this encounter [facility] 04-30-2022 History of Present illness Narrative Images from the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
--- NOTE | 2025-03-05 00:34 | ECG_ITS ---
[facility] Test Date: 2025-03-05 Pat Name: ESTELLA JEFFERY Department: Room: - Gender: Male Safety Intern: : 1965 Requested By: [id number] Order Number: [id number] Reading MD: JAYCEE TOLEDO M.D. Measurements Intervals [place] Rate: 44 P: 56 SD: 126 QRS: 18 QRSD: 78 T: 27 QT: 396 QTc: 347 Interpretive Statements 1130 Sinus bradycardia 8102 Low QRS voltage in chest leads 8305 Short QTc interval 9150 abnormal ECG Compared to ECG 02/19/2025 08:12:49 Sinus tachycardia no longer present Ventricular premature complex(es) no longer present Electronically Signed On 03-05-2025 20:11:16 EDT by JAYCEE TOLEDO M.D.
--- NOTE | 2025-03-05 00:34 | XR_ITS ---
The [address] [address] Patient Name: ESTELLA JEFFERY MRN: [id number] date: 1965 Sex: M Assigned Patient Location: ED.MAIN Current Patient Location: Accession/Order Number: [id number] Exam Date: 03/05/2025 00:55 Report Date: 03/05/2025 08:39 At the request of: LYDIA DIXON MD Procedure: XR chest 1V PORTABLE AP ERECT CHEST 00 24 hours CLINICAL HISTORY: hypotension COMPARISON: 02/19/2025 The right hemidiaphragm is slightly elevated. The heart is within normal limits. There is no vascular congestion. There is minor basilar scarring or atelectasis. No developing consolidation is seen. There is no effusion or pneumothorax. The osseous structures are intact. Endplate spurring is noted. XR/XR chest 1V IMPRESSION: NO ACUTE FINDINGS Impression dictated by: Vanessa Hawkins M.D. 03/05/2025 8:39 AM Dictation Location: [place] [address] Electronically authenticated by: [id number] Date: 03/05/2025 08:39
--- NOTE | 2025-03-05 00:39 | ED.GENADUL1 ---
HPI HPI - General Adult General Chief complaint: Recheck/Abnormal Lab/Rx Stated complaint: OTHER Time Seen by Provider: 03/05/25 00:31 Source: other Source information: EMS Mode of arrival: ambulance History of Present Illness HPI narrative: 59-year-old male presented to the emergency department for reported low blood pressure. This was found at home by family. Upon arrival here he had a blood pressure of 102 systolic and it was reported in the 80s by the family. The patient has advanced dementia and is unable to provide any history at all. Initially no family was present to give any further history. Related Data Home Medications ?Medication ?Instructions ?Recorded ?Confirmed quetiapine 50 mg tablet 50 mg PO BID 08/09/24 02/19/25 Held on 02/19/25. Instructions: changed med list midodrine 2.5 mg tablet 2.5 mg PO BID 02/06/25 03/05/25 pantoprazole 40 mg tablet,delayed 40 mg PO .acb 02/06/25 02/19/25 release Held on 02/19/25. Instructions: changed med list duloxetine 30 mg capsule,delayed 30 mg PO BID 02/07/25 03/05/25 release risperidone 0.5 mg tablet 0.5 mg PO BID 02/19/25 03/05/25 trazodone 50 mg tablet 50 mg PO QPM 02/19/25 03/05/25 Previous Rx's ?Medication ?Instructions ?Recorded donepezil 10 mg tablet 10 mg PO QHS #30 tabs 08/11/24 Held on 02/19/25. Instructions: changed med list melatonin 10 mg capsule 10 mg PO DAILY #30 caps 08/11/24 folic acid 1 mg tablet 1 mg PO QD #60 tabs 02/08/25 oxcarbazepine 150 mg tablet 150 mg PO DAILY #30 tabs 02/08/25 (Trileptal) sennosides 8.6 mg-docusate sodium 1 tab PO QD PRN Constipation #30 02/08/25 50 mg tablet (Senna Plus) tabs Allergies Allergy/AdvReac Type Severity Reaction Status Date / Time No Known Drug Allergies Allergy Verified 02/06/25 15:52 Opioid HPI Opioid Management Most Recent Opioid Data: Last ORT Total Score 0 02/06/25, 22:00 Last ORT Risk Category Low Risk 02/06/25, 22:00 Ur Phencyclidine Scrn, (NEGATIVE) Negative 08/10/24, 01:35 Review of Systems ROS Narrative Not obtainable, dementia PFSH [facility] Medical History (Updated 03/05/25 @ 01:29 by Clint Briscoe MD) POTS (postural orthostatic tachycardia syndrome) ?G90.A - Postural orthostatic tachycardia syndrome [POTS] (ICD-10) TBI (traumatic brain injury) ?S06.9XAA - Unspecified intracranial injury with loss of consciousness status unknown, initial encounter (ICD-10) Dementia ?F03.90 - Unspecified dementia, unspecified severity, without behavioral disturbance, psychotic disturbance, mood disturbance, and anxiety (ICD-10) Elevated TSH ?R79.89 - Other specified abnormal findings of blood chemistry (ICD-10) STEVO (acute kidney injury) ?N17.9 - Acute kidney failure, unspecified (ICD-10) Delirium ?R41.0 - Disorientation, unspecified (ICD-10) Altered mental status ?R41.82 - Altered mental status, unspecified (ICD-10) Hallucinations ?R44.3 - Hallucinations, unspecified (ICD-10) Acute delirium ?R41.0 - Disorientation, unspecified (ICD-10) Altered mental status ?R41.82 - Altered mental status, unspecified (ICD-10) Combative behavior ?R46.89 - Other symptoms and signs involving appearance and behavior (ICD-10) Dementia without behavioral disturbance ?F03.90 - Unspecified dementia, unspecified severity, without behavioral disturbance, psychotic disturbance, mood disturbance, and anxiety (ICD-10) Altered mental status ?R41.82 - Altered mental status, unspecified (ICD-10) GERD (gastroesophageal reflux disease) ?K21.9 - Gastro-esophageal reflux disease without esophagitis (ICD-10) Surgical History History of colostomy reversal ?Z98.890 - Other specified postprocedural states (ICD-10) H/O hernia repair ?Z98.890 - Other specified postprocedural states (ICD-10) ?Z87.19 - Personal history of other diseases of the digestive system (ICD-10) Family History Sister Family history of cancer Family history of diabetes mellitus Family history of hypertension Family history of stroke Mother Family history of diabetes mellitus Family history of hypertension Social History (Updated 02/07/25 @ 06:39 by Nuris Armijo RN) Within the past year, how often did you have a drink containing alcohol: never Within the past year, how often did you have six or more drinks on one occasion: never Score interpretation: A score less than 4 is consistent with normal alcohol consumption. Smoking status: Never smoker Non-prescribed substance use: denies use Previous occupational history: unemployed Highest level of school completed/degree received: Bachelor's degree Are you now , , , , never or living with a partner: Little interest or pleasure in doing things: not at all Feeling down, depressed, or hopeless: not at all Do you think of yourself as: straight/heterosexual Gender Identity: male Exam Narrative Exam Narrative: Nurses note and vital signs reviewed and patient is not hypoxic. General: The patient appears in no apparent distress. Patient is resting comfortably on cart, sitting upright. Skin: Warm, dry, no pallor noted. There is no rash noted. Head: Normocephalic, atraumatic Eye: Normal conjunctiva, no drainage Ears, Nose, Mouth, and Throat: oral mucosa is moist. Nares patent. Cardiovascular: Regular Rate and Rhythm Respiratory: Patient is in no distress, no accessory muscle use, lungs are clear to auscultation, no wheezing, rales or rhonchi Back: non-tender GI: Soft and nontender Musculoskeletal: The patient has no evidence of calf tenderness, no pitting edema, symmetrical pulses noted bilaterally Neurological: Awake and alert. Looking around the room. He is able to tell me his name only, this appears to be his baseline. He moves all 4 extremities. Psychiatric: Not uncooperative Constitutional Vital Signs, click to edit/add: Last Vital Signs Temp 98.2 F 03/05/25 00:15 Pulse 72 03/05/25 01:10 Resp 20 03/05/25 01:10 BP 122/84 03/05/25 01:01 Pulse Ox 97 03/05/25 00:15 O2 Del Method Room Air 03/05/25 00:15 Course Vital Signs Vital signs: Vital Signs Temperature 98.2 F 03/05/25 00:15 Pulse Rate 78 03/05/25 00:15 Respiratory Rate 16 03/05/25 00:15 Blood Pressure 102/70 03/05/25 00:15 Pulse Oximetry 97 03/05/25 00:15 Oxygen Delivery Method Room Air 03/05/25 00:15 Temperature 98.2 F 03/05/25 00:15 Pulse Rate 72 03/05/25 01:10 Respiratory Rate 20 03/05/25 01:10 Blood Pressure 122/84 03/05/25 01:01 Pulse Oximetry 97 03/05/25 00:15 Oxygen Delivery Method Room Air 03/05/25 00:15 Medical Decision Making MDM Narrative Medical decision making narrative: The patient has not been hypotensive here and his workup is negative. Family is comfortable taking him home. No further intervention is required. Treatment diagnosis and follow-up were discussed thoroughly. Differential Diagnosis Differential Diagnosis: Anemia, dehydration, acute kidney injury, UTI Lab Data Lab results reviewed: Yes I reviewed the patient's lab results Labs: Lab Results 03/05/25 03/05/25 Range/Units 00:46 00:50 WBC 3.9 L (4.0-11.0) 10^3/uL RBC 3.96 L (4.70-6.10) 10^6/uL Hgb 11.1 L (14.0-18.0) g/dL Hct 33.4 L (42.0-54.0) % MCV 84.3 (80.0-94.0) fL MCH 28.0 (25.9-34.0) pg MCHC 33.2 (29.9-35.2) g/dL RDW 13.7 (11.0-15.0) % Plt Count 155 (150-450) 10^3/uL MPV 9.1 L (9.5-13.5) fL Neut % (Auto) 45.7 (43.0-75.0) % Lymph % (Auto) 43.0 (20.5-60.0) % [place] % (Auto) 9.0 (1.7-12.0) % Eos % (Auto) 1.5 (0.9-7.0) % Baso % (Auto) 0.5 (0.2-2.0) % Neut # (Auto) 1.8 (1.4-6.5) 10^3/uL Lymph # (Auto) 1.7 (1.2-3.8) 10^3/uL [place] # (Auto) 0.4 (0.3-0.8) 10^3/uL Eos # (Auto) 0.1 (0.0-0.7) 10^3/uL Baso # (Auto) 0.0 (0.0-0.1) 10^3/uL Abs Immat Gran (auto) 0.01 (0.00-0.03) 10^3/uL Imm/Tot Granulo (auto) 0.3 (0.0-0.5) % Sodium 146 H (136-145) mmol/L Potassium 3.6 (3.5-5.1) mmol/L Chloride 110 H (98-107) mmol/L Carbon Dioxide 30.8 (21.0-32.0) mmol/L Anion Gap 8.8 BUN 17.0 (7.0-18.0) mg/dL Creatinine 0.95 (0.70-1.30) mg/dL Est GFR ( Amer) >60 (>=60 mL/min/1.73m^2) Est GFR (Non-Af Amer) >60 (>=60 mL/min/1.73m^2) BUN/Creatinine Ratio 17.9 Glucose 87 (74-106) mg/dL Calcium 8.0 L (8.5-10.1) mg/dL Urine Color Yellow (YELLOW) Urine Clarity Clear (CLEAR) Urine pH 6.0 (5.0-9.0) Ur Specific Angelica 1.025 (1.005-1.025) Urine Protein Negative (NEG/TRACE) mg/dL Urine Glucose (UA) Negative (NEGATIVE) mg/dL Urine Ketones Negative (NEGATIVE) mg/dL Urine Occult Blood Moderate A (NEGATIVE) Urine Nitrite Negative (NEGATIVE) Urine Bilirubin Negative (NEGATIVE) Urine Urobilinogen 2.0 A (0.2-1.0) EU/dL Ur Leukocyte Esterase Negative (NEGATIVE) Urine RBC 2-5 A (0-2) #/HPF Urine WBC 0-2 A (NONE SEEN) #/HPF Ur Squamous Epith Cells Rare (NONE/RARE) #/LPF Urine Crystals None seen (None Seen) #/HPF Urine Bacteria None seen (NONE SEEN) #/HPF Urine Casts None seen (NONE SEEN) #/LPF Urine Mucus Small A (NONE SEEN) Ur Culture Indicated? No Imaging Data Chest x-ray: My impression: No acute findings ECG Data Attestation: I personally reviewed and interpreted this ECG as follows: (EKG on my interpretation shows sinus rhythm with a rate of approximately 75 no acute change) Discharge Plan Discharge Chief Complaint: Recheck/Abnormal Lab/Rx Clinical Impression: No problem, feared complaint unfounded Patient Disposition: Home, Self-Care Time of Disposition Decision: :29 Condition: Good Mode of Transportation: Private Vehicle Prescriptions / Home Meds: No Action pantoprazole 40 mg tablet,delayed release (DR/EC) 40 mg PO .acb midodrine 2.5 mg tablet 2.5 mg PO BID duloxetine 30 mg Capsule,Delayed Release(Dr/Ec) 30 mg PO BID sennosides-docusate sodium [Senna Plus] 8.6-50 mg Tablet 1 tab PO QD PRN (Reason: Constipation) Qty: 30 1RF folic acid 1 mg Tablet 1 mg PO QD Qty: 60 1RF oxcarbazepine [Trileptal] 150 mg tablet 150 mg PO DAILY Qty: 30 2RF quetiapine 50 mg tablet 50 mg PO BID Rx Instructions: 50 mg in morning and 50 mg after lunch donepezil 10 mg Tablet 10 mg PO QHS Qty: 30 11RF melatonin 10 mg capsule 10 mg PO DAILY Qty: 30 11RF risperidone 0.5 mg tablet 0.5 mg PO BID trazodone 50 mg tablet 50 mg PO QPM Print Language: Bur[place]ian Instructions: Hypotension (ED) Referrals: Jae Cruz MD [Primary Care Provider, Family Practice] - 1 week
[2025-03-05 00:57] LABS: Hematocrit 33.4 % (42.0-54.0); Hemoglobin 11.1 g/dL (14.0-18.0); Immature Granulocytes Abs Auto 0.01 10^3/uL (0.00-0.03); Immature Granulocytes Pct Auto 0.3 % (0.0-0.5); Lymphocytes Absolute Auto 1.7 10^3/uL (1.2-3.8); Mean Corpuscular HGB Conc 33.2 g/dL (29.9-35.2); Mean Corpuscular Hemoglobin 28.0 pg (25.9-34.0); Mean Corpuscular Volume 84.3 fL (80.0-94.0); Platelet Count 155 10^3/uL (150-450); Red Blood Count 3.96 10^6/uL (4.70-6.10); White Blood Count 3.9 10^3/uL (4.0-11.0)
[2025-03-05] MEDS: 0.9 % SODIUM CHLORIDE 1,000 ML 1000 ML IV (00:59)
[2025-03-05 01:01] LABS: Glucose Urine UA NEGATIVE (NEGATIVE)
[2025-03-05 01:07] LABS: Anion Gap 8.8; Blood Urea Nitrogen 17.0 mg/dL (7.0-18.0); Calcium 8.0 mg/dL (8.5-10.1); Carbon Dioxide 30.8 mmol/L (21.0-32.0); Chloride 110 mmol/L (98-107); Estimated GFR (African America >60 (>=60 mL/min/1.73m^2); Estimated GFR (Non-African Ame >60 (>=60 mL/min/1.73m^2); Glucose 87 mg/dL (74-106); Potassium 3.6 mmol/L (3.5-5.1); Sodium 146 mmol/L (136-145)
[2025-03-05 01:08] LABS: Cast Seen? NONE SEEN #/LPF (NONE SEEN); Crystals Seen? None Seen #/HPF (None Seen); Urine Culture Indicated NO
== END 2025-03-05 01:54 | disposition home or self-care (01) ==
PROVIDERS: Emergency Provider Emergency Medicine; PCP Family Medicine
DX: Z71.1 Person with feared health complaint in whom no diagnosis is made (principal); F03.90 Unspecified dementia, unspecified severity, without behavioral disturbance, psychotic disturbance, mood disturbance, and anxiety
CPT/HCPCS: 36415; 71045; 80048; 81001; 85025; 93005; 99285

== ENCOUNTER 2025-04-02 20:28 | Emergency (ER) | payer OTHER, SELFPAY ==
[2025-04-02] VITALS (10 sets, daily range): BP systolic 108–110; BP diastolic 48–78; PULSE 71; TEMP 36.7; O2SAT 94–100
--- OUTSIDE RECORDS SUMMARY | 2025-04-02 20:35 | XMS_ITS | CCD ---
Author Organization [facility] Care Team Providers Care Supervisor Cold Rolling Name Role Phone NAYA IZAGUIRRE Admitting Unavailable JAE LOPEZ Primary Care Unavailable JAE LOPEZ Referring Unavailable NAYA IZAGUIRRE Attending Unavailable IN Procedure Practitioner Unavailab NAYA Wolf Surgeon Unavailable JAE LOPEZ Primary Care Unavailable SELF, REFERRED Referring Unavailable WILLAM IZAGUIRREIN Attending Unavailable ZINA JIASULTANAIN Admitting Unavailable IN Procedure Practitioner Unavailab WILLAM WolfIN Surgeon Unavailable [...] Provider MD Jae Lopez Primary Care Provider [phone] MAITE MORRIS Attending Unavailable JAE LOPEZ Primary Care Unavailable Danni Graham Admitting Unavailable Danni Graham Attending Unavailable Danni Graham Referring Unavailable Jae Lopez MD Primary Care Provider [phone] Danni Graham Attending Unavailable Danni Graham Attending [...] Unavailable Jae Lopez MD Primary Care Provider [phone] FIDELINA FISHER Attending Unavailable HOY, JAE [...] MEDELLIN Consulting Unavailable MERCEDES TAVAREZ Consulting Unavailable [facility] Consulting Unavailab GAURANG Clark Referring Unavailable JAE LOPEZ Primary Care Unavailable BAILEY BERG Attending Unavailable Allergies Allergy Classification Reported Allergen(s) Allergy Type Date of Onset Reaction(s) Facility (1 source) 51768,00 Drug allergy (disorder) 9 [facility] Repository (10 sources) diphenhydrAMINE ; Translations: [DIPHENHYDRAMIN E] Drug Allergy 5 Abnormal Behavior [employer] Work Phone: (1 source) No Known Medication Allergies; Translations: [No Known Medication Allergies] Propensity to adverse reactions (disorder) [facility] Repository (7 sources) LORazepam; Translations: [LORAZEPAM] Drug Allergy 5 Abnormal Behavior [employer] Medications Current Medications Medication Drug Class(es) Dates [...] information. docusate sodium 50 mg / sennosides, nursing home 8.6 mg oral tablet (1 source) Start: 2024 take 1 tablet by mouth every twelve hours as needed for constipation donepezil hydrochloride 5 mg oral tablet (20 sources) Start: 2022 End: 2023 take 5 mg by mouth once daily 5 mg, oral, Nightly, First dose on Tue07/06/24 at 2200, Look-alike/soun d-alike medication - verify indication for use. End: 03-27-2025 take 1 tablet by mouth once daily donepeziL (ARICEPT) 10 mg tablet Take 1 tablet (10 mg total) by mouth nightly. 03/27/2025 Discontinued (Therapy completed) Comment on above: Take 1 tablet by romario th once daily. TAKE 1 TABLET BY ROMARIO TH EVERY DAY 0.4 ml enoxaparin sodium 100 mg/ml prefilled [...] morning. 07/22/2024 Discontinued (Stop Taking at Discharge) folic acid 1 mg oral tablet (1 source) take 1 tablet by mouth in the morning folic acid (FOLVITE) 1 mg tablet Take 1 tablet (1 mg total) by mouth in the morning. Active glucagon (rdna) 1 mg injection (1 source) Antihypoglycemic Agent Start: 50 ml glucose 500 mg/ml prefilled syringe (2 sources) Start: Start: 07-06-2024 haloperidol 5 mg oral tablet [...] / neomycin 3.5 mg/ml / polymyxin b 59517 unt/ml otic suspension (3 sources) Aminoglycoside Antibacterial, [...] at Discharge) melatonin 5 mg oral tablet (7 sources) Start: 07-20-2024 take 10 mg by [...] Active midodrine hydrochloride 2.5 mg oral tablet (5 sources) alpha-Adrenergic Agonist Start: 10-23-2024 End: 03-06-2025 [...] hours as needed for nausea and vomiting OXcarbazepine 300 mg oral tablet (1 source) Anti-epileptic Agent take 1 tablet by mouth in the morning, then take 1 tablet by mouth at bedtime OXcarbazepine (TRILEPTAL) 300 mg tablet Take 1 tablet (300 mg total) by mouth in the morning and 1 tablet (300 mg total) before bedtime. Currently just in the morning, seizures . Active pantoprazole 40 mg delayed release oral tablet (6 sources) Proton Pump Inhibitor Start: 07-06-2024 End: 03-27-2025 40 mg, oral, Every morning before breakfast, First dose on Tue07/06/24 at 0900, Look-alike/sound-a like medication - verify indication for use. If patient is receiving enteral feeding, consider alternative PPI or continue IV pantoprazole until the delayed-release tablet can be taken orally, Indication: GERD prochlorperazine (COMPAZINE) injection 5 mg (1 source) Start: 07-20-2024 take 5 mg intravenously every six hours as needed prochlorperazine (COMPAZINE) injection 5 mg QUEtiapine 50 mg oral tablet (16 sources) Atypical Antipsychotic Start: 07-20-2024 End: 03-27-2025 QUEtiapine (SEROQUEL) 50 mg tablet Take by [...] Look-alike/sound-alike medication - verify indication for use. End: 03-27-2025 take 1.5 tablets by mouth once daily QUEtiapine (SEROquel) 200 mg tablet Take 1.5 tablets (300 mg total) by mouth nightly. 03/27/2025 Discontinued (Therapy completed) sennosides, nursing home 8.6 mg oral tablet (1 source) take 1 tablet by mouth once daily as needed for constipation senna (SENOKOT) 8.6 mg tablet Indications: constipation Take 1 tablet (8.6 mg total) by mouth daily as needed for constipation Indications: constipation. Active traZODone hydrochloride 50 mg oral tablet (1 source) Serotonin Reuptake Inhibitor take 1 tablet by mouth once daily traZODone (DESYREL) 50 mg tablet Indications: insomnia associated with depression Take 1 tablet (50 mg total) by mouth nightly Indications: insomnia associated with depression. Active divalproex sodium 125 mg delayed release oral capsule (10 sources) Mood Stabilizer, Anti-epileptic Agent Start: 10-24-19 End: 11-23-19 divalproex sprinkle (DEPAKOTE SPRINKLE) 125 mg capsule [...] therapy completed) Comment on above: once daily. cyproheptadine hydrochloride 4 mg oral tablet (5 sources) End: 03-27-2025 take 1 tablet by mouth at bedtime cyproheptadine (PERIACTIN) 4 mg tablet Take 1 tablet (4 mg total) by mouth in the morning and at bedtime. 03/27/2025 Discontinued (Therapy completed) doxycycline hyclate 100 mg oral capsule (2 [...] ulceration., Indication: Skin and soft tissue infection DULoxetine 30 mg delayed release oral capsule (10 sources) Serotonin and Norepinephrine Reuptake Inhibitor Start: 09-30-2024 End: 03-27-2025 DULoxetine (CYMBALTA) 30 mg capsule Take 1 capsule (30 mg total) by mouth. 09/30/2024 03/27/2025 Discontinued (Therapy completed) Start: 07-06-2024 End: 08-20-2024 DULoxetine (CYMBALTA) 20 mg capsule Take 20 mg by mouth. 07/21/2024 08/20/2024 Active FREESTYLE LITE METER kit (9 sources) Start: 09-08-2018 End: 03-27-2025 FREESTYLE LITE METER kit 03/27/2025 Discontinued (Therapy completed) Start: 09-08-2018 FREESTYLE LITE METER kit 09/08/2018 Active Start: 09-08-2018 FREESTYLE LITE METER kit 09/08/2018 Start: 09-08-2018 FREESTYLE LITE METER kit 09/08/2018 Suspended gadoteridoL (PROHANCE) injection 8.39 mmol 16.78 mL [...] Every 8 hours scheduled, First dose on 07/07/24 at 0600, Notify prescriber if INR greater than 1.9, hemoglobin less than 10 mg/dL, aPTT greater than 40 seconds, and/or platelet count less than 100,000/mm Look-alike/sound-a like medication - verify indication for use. Observe for bleeding. memantine hydrochloride 5 mg oral tablet (18 sources) H-iuguik-Q-aspartate Receptor Antagonist Start: 11-17-2022 End: 07-30-2024 take 1 tablet by mouth twice daily memantine (NAMENDA) 5 mg tablet Indications: Alzheimer's disease (HCC) Take 1 tablet by mouth twice daily. 180 tablet 1 11/18/2022 07/30/2024 Discontinued (Course of therapy completed) Comment on above: Take 1 tablet by romario twice daily. omeprazole 20 mg delayed release [...] End: 07-09-2024 10 mg, intramuscular, Once, On 1/20/25 at 1445, For 1 dose, Dilute with [...] Clouded consciousness; Translations: [Disorientation, unspecified] 10-16-2024 Episodic Unclassified (1 source) Medical Screening Onset: 5 Unclassified (1 source) ILL Onset: 5 Unclassified (1 source) tele-neuro consult Janice Onset: 5 Unclassified (1 source) Autogenerated Problem Onset: 5 12-18-2024 Unclassified (1 source) Trauma Onset: 5 Unclassified (1 source) Unspecified dementia, unspecified severity, with other behavioral disturbance; Translations: [Unspecified dementia, unspecified severity, with other behavioral disturbance] Onset: 5 Unclassified (2 sources) Med Management; Translations: [Med Management] Onset: 5 Past or Other Problems Problem Classification Problem Date Documented Da te Episodic/Chronic Cardiac dysrhythmias (7 sources) Bradycardia; Translations: [Bradycardia, unspecified] Onset: 10-19-2024 10-19-2024 Episodic Crushing injury or internal injury (8 sources) Laceration of ulnar artery; Translations: [Laceration of ulnar artery at forearm level, left arm, initial encounter] Onset: 11-24-2019 11-24-2019 Episodic Deficiency and other anemia (1 source) Anemia, unspecified; Translations: [ANEMIA UNSPECIFIED] Onset: 01-16-2022 Episodic Mood disorders (6 sources) Mood disorders Onset: 10-15-2024 10-15-2024 Nonspecific chest pain (1 source) Chest pain, unspecified; Translations: [Chest pain, unspecified] Onset: 10-19-2024 Episodic Other aftercare (1 source) Encounter for follow-up examination after completed treatment for conditions other than malignant neoplasm; Translations: [Encounter for follow-up examination after completed treatment for conditions other than malignant neoplasm] Onset: 07-11-2024 Episodic Other circulatory disease (4 sources) Orthostatic hypotension; Translations: [Orthostatic hypotension] Onset: 11-06-2024 11-06-2024 Episodic Other ear and sense organ disorders (20 sources) Bilateral tinnitus; Translations: [Tinnitus, bilateral] Onset: 04-27-2022 04-27-2022 Episodic Other gastrointestinal disorders (1 source) Dysphagia, unspecified; Translations: [Dysphagia, unspecified] Onset: 10-19-2024 Episodic Other screening for suspected conditions (not mental disorders or infectious disease) (3 sources) Raised prostate specific antigen; Translations: [Elevated prostate specific antigen [PSA]] Onset: 01-11-2024 Episodic Residual codes; unclassified (4 sources) Other amnesia; Translations: [OTHER AMNESIA] Onset: 01-21-2022 Episodic Residual codes; unclassified (10 sources) Altered mental status; Translations: [Altered mental status, unspecified] Onset: 07-06-2024 07-06-2024 Episodic Residual codes; unclassified (1 source) Pain, unspecified; Translations: [Pain, unspecified] Onset: 07-03-2024 Episodic Residual codes; unclassified (1 source) Disorientation, unspecified; Translations: [Disorientation, unspecified] Onset: 10-15-2024 Episodic Residual codes; unclassified (1 source) Other specified personal risk factors, not elsewhere classified; Translations: [Other specified personal risk factors, not elsewhere classified] Onset: 07-06-2024 Episodic Residual codes; unclassified (1 source) Altered mental status, unspecified; Translations: [Altered mental status, unspecified] Onset: 07-06-2024 Episodic Syncope (1 source) Syncope Onset: 10-19-2024 Episodic Unclassified (6 sources) Onset: 10-16-2024 10-16-2024 Unclassified (1 source) Patient encounter status 03-27-2025 Results Test Name Value Interpretation Reference Range Facility 36on 03-28-2025 36 Pt's calling to notify us that the risperdal was causing seizures and the duloxetine was causing jolts. Pt has been scratching, hitting and having hallucinations. Pt is currently not talking the duloxetine or the risperidone. would like to know if you can prescribe something to replace these 2 medications. Please advise Normal [facility] CBC (NO DIFF)on 03-27-2025 Erythrocyte distribution width (RBC) [Ratio] 13.6 % Normal 11.5-15 [facility] Comment on above: Performed By: #### C DEE GAMA, 63344-5, 75869-0 #### [facility] ([id number]) [address], [facility] [address] [place] [address] Hematocrit (Bld) [Volume fraction] 43.0 % Normal 39-50 [facility] Comment on above: Performed By: #### C DEE GAMA, 89406-8, 90791-1 #### [facility] ([id number]) [address], [facility] [address] [place] [address] Hemoglobin (Bld) [Mass/Vol] 14.2 g/dL Normal 13-17 [facility] Comment on above: Performed By: #### C DEE GAMA, 62009-2, 67640-7 #### [facility] ([id number]) [address] [address] [place] [address] MCH (RBC) [Entitic mass] 26.4 pg Low 27-34 [facility] Comment on above: Performed By: #### C DEE GAMA, 40288-3, 88457-7 #### [facility] ([id number]) [address], [facility] [address] [place] [address] MCHC (RBC) [Mass/Vol] 32.9 g/dL Normal 32-36 [facility] Comment on above: Performed By: #### C DEE GAMA, 61460-3, 63805-8 #### [facility] ([id number]) [address], [address] [place] [address] MCV (RBC) [Entitic vol] 80 fL Normal 80-100 [facility] Comment on above: Performed By: #### Emily GAMA, BMP, 66233-6, 60592-2 #### [facility] ([id number]) [address], [address] [place] [address] Platelet mean volume (Bld) [Entitic vol] 8.7 fL Normal 7-12 [facility] Comment on above: Performed By: #### Emily GAMA, BMP, 34947-9, 44832-1 #### [facility] ([id number]) [address], [facility] [address] [place] [address] Platelets (Bld) [#/Vol] 179 10*3/uL Normal 150-450 [facility] Comment on above: Performed By: #### DEE MOORE, 79697-5, 72944-4 #### [facility] ([id number]) [address], [address] [place] [address] RBC COUNT 5.36 X10E12/L Normal 4.1-5.7 [facility] Comment on above: Performed By: #### Emily GAMA, BMP, 34259-4, 55341-1 #### [facility] ([id number]) [address], [facility] [address] [place] [address] WBC (Bld) [#/Vol] 5.1 10*3/uL Normal 4-11 [facility] Comment on above: Performed By: #### Emily GAMA, BMP, 57828-2, 08406-6 #### [facility] ([id number]) [address], [address] [place] [address] CBC without diffon Erythrocyte distribution width (RBC) [Ratio] 13.6 % 11.5 - 15 % [facility] Hematocrit (Bld) [Volume fraction] 43 % 39 - 50 % [facility] Hemoglobin (Bld) [Mass/Vol] 14.2 g/dL 13 - 17 g/dL [facility] Interpretation and review of laboratory results Abnormal [facility] MCH (RBC) [Entitic mass] 26.4 pg Low 27 - 34 pg [facility] MCHC (RBC) [Mass/Vol] 32.9 g/dL 32 - 3 6 g/dL [facility] MCV (RBC) [Entitic vol] 80 fL 80 - 100 fL [facility] Platelet mean volume (Bld) [Entitic vol] 8.7 fL 7 - 12 fL [facility] Platelets (Bld) [#/Vol] 179 10*3/uL [facility] RBC (Bld) [#/Vol] 5.36 10*6/uL [facility] WBC LM Ql (Sput) 5.1 [facility] 36on 03-13-2025 36 Pt's would like to know if you can give pt something for behavior. Please advise [facility] 36 informed [facility] 3603-12-2025 36 Pt's ? Calling to report the risperidone is causing Jolts that look like seizures. Please call/advise [facility] Refillon 03-09-2025 Refill [id number] Estella Jeffery 1965 M Date Provider Department Center 03/09/2025 [id number] Nusrat Heal No family history on file Reason for Visit and Comments: Med Change Request [411] [facility] Orders Onlyon 03-05-2025 Orders Only [id number] Estella Jeffery 1965 M Date Provider Department Center 03/05/2025 [facility] Nusrat Heal No family history on file [facility] 3602-19-2025 36 This morning pt had a gran mal seizure, [facility] asking why he was taken off his trileptal when that is what he needs for seizures. Can you call pts to discuss this ed? [phone]. [facility] 3702-15-2025 37 Medication Instructions: Stop Depakote due to thrombocytopenia, leukopenia. Continue with plan for follow up labs at [facility] in 1-2 weeks Stop Donepezil due [...] follow up labs to be obtained by [facility] in 1-2 weeks. Sisters/Spouse notified to bring most recent labwork to patient's next visit for review. Will monitor labs as indicated for monitoring of thrombocytopenia, leukopenia most likely related to Depakote Return to Clinic in 6 Weeks. If you have questions/concerns/n eed refills call [phone] M-F 8:30am-4:30pm, to speak with my assistant community manager. You can also message me through [employer]. After hours or on holidays and weekends, you can call the hospital cinder dump crane operator at [phone] to talk with the on-call physician for emergencies. For a crisis or suicidal ideation you can call [facility] ([phone]) or [phone]. You may also call 911 or the local emergency department with any thoughts of , suicidal ideations, homicidal ideations, concern that your mind is playing tricks on you (hallucinations, paranoia, etc), or with any life threatening emergency Normal [facility] Office Visiton 02-15-2025 Follow-up visit [id number] Estella Jeffery 1965 [facility] Provider Department Center 02/15/2025 [facility] Nusrat Heal No family history on file Level of Service:18099 IN PSYCHIATRIC DIAGNOSTIC EVAL W/MEDICAL SERVICES (GC) Reason for Visit and Comments: Med Management [[id number]] Normal [facility] CNCOon 10-31-2024 CNCO Letter Text Normal [facility] jennifer Garber BASIC METABOLIC PANELon 05-0 Anion gap [Moles/Vol] 6 mmol/L Normal 5-15 [facility] Comment on above: Performed By: #### C BC, BMP, 01236-2, 28770-4 #### [facility] ([id number]) [address], [address] [place] [address] Calcium [Mass/Vol] 8.2 mg/dL Low 8.5-10.5 [facility] Comment on above: Performed By: #### C BC, BMP, 54847-1, 18009-4 #### [facility] ([id number]) [address], [address] [place] [address] Chloride [Moles/Vol] 104 mmol/L Normal 98-109 [facility] Comment on above: Performed By: #### C NATAN, BMP, 17290-3, 64621-8 #### [facility] ([id number]) [address], [address] [place] [address] CO2 [Moles/Vol] 29 mmol/L Normal 22-32 [facility] Comment on above: Performed By: #### C NATAN, BMP, 55968-4, 54476-6 #### [facility] ([id number]) [address], [address] [place] [address] Creatinine [Mass/Vol] 1.13 mg/dL Normal 0.60-1.30 [facility] Comment on above: Result Comment: METH OD TRACEABLE TO IDMS STANDARD Performed By: #### C BC, BMP, 63122-8, 41632-0 #### [facility] ([id number]) [address], [address] [place] [address] GFR/1.73 sq M.predicted among non-blacks MDRD (S/P/Bld) [Vol rate/Area] 75 mL/min/{1.73_m2} Normal >=60 [facility] Comment on above: Result Comment: Repo rted eGFR is based on the CKD-EPI 2020 equation that does not use a race coefficient. Performed By: #### C BC, BMP, 38347-5, 41222-8 #### [facility] ([id number]) [address], [address] [place] [address] Glucose [Mass/Vol] 84 mg/dL Normal 65-99 [facility] Comment on above: Performed By: #### C BC, BMP, 79453-0, 44433-2 #### [facility] ([id number]) [address], [address] [place] [address] Potassium [Moles/Vol] 4.2 mmol/L Normal 3.5-5.0 [facility] Comment on above: Performed By: #### C BC, BMP, 98043-1, 12066-0 #### [facility] ([id number]) [address], [address] [place] [address] Sodium [Moles/Vol] 139 mmol/L Normal 134-146 [facility] Comment on above: Performed By: #### C BC, BMP, 23036-7, 12804-0 #### [facility] ([id number]) [address], [address] [place] [address] Urea nitrogen [Mass/Vol] 23 mg/dL Normal 5-23 [facility] Comment on above: Performed By: #### C BC, BMP, 91595-0, 69671-7 #### [facility] ([id number]) [address], [address] [place] [address] CBC (NO DIFF)on 10-24-2024 Erythrocyte distribution width (RBC) [Ratio] 17.1 % High 11.5-15 [facility] Comment on above: Performed By: #### C BC, BMP, 87390-3, 20402-2 #### [facility] ([id number]) [address], [address] [place] [address] Hematocrit (Bld) [Volume fraction] 38.9 % Low 39-50 [facility] Comment on above: Performed By: #### C BC, BMP, 77665-1, 83216-5 #### [facility] ([id number]) [address], [address] [place] [address] Hemoglobin (Bld) [Mass/Vol] 13.0 g/dL Normal 13-17 [facility] Comment on above: Performed By: #### Emily GAMA, DEE, 20192-4, 06945-3 #### [facility] ([id number]) [address], [address] [place] [address] MCH (RBC) [Entitic mass] 25.5 pg Low 27-34 [facility] Comment on above: Performed By: #### Emily GAMA, DEE, 95409-0, 87534-3 #### [facility] ([id number]) [address], [address] [place] [address] MCHC (RBC) [Mass/Vol] 33.3 g/dL Normal 32-36 [facility] Comment on above: Performed By: #### DEE MOORE, 69713-4, 22071-5 #### [facility] ([id number]) [address], [address] [place] [address] MCV (RBC) [Entitic vol] 77 fL Low 80-100 [facility] Comment on above: Performed By: #### DEE MOORE, 81081-6, 00811-2 #### [facility] ([id number]) [address], [address] [place] [address] Platelet mean volume (Bld) [Entitic vol] 6.8 fL Low 7-12 [facility] Comment on above: Performed By: #### Emily GAMA, BMP, 12292-5, 88659-8 #### [facility] ([id number]) [address], [address] [place] [address] Platelets (Bld) [#/Vol] 56 10*3/uL Low 150-450 [facility] Comment on above: Performed By: #### C BC, BMP, 74240-9, 20397-6 #### [facility] ([id number]) [address], [address] [place] [address] RBC COUNT 5.08 X10E12/L Normal 4.1-5.7 [facility] Comment on above: Performed By: #### C BC, BMP, 22419-3, 42053-1 #### [facility] ([id number]) [address], [address] [place] [address] WBC (Bld) [#/Vol] 3.8 10*3/uL Low 4-11 [facility] Comment on above: Performed By: #### C BC, BMP, 40583-0, 99910-2 #### [facility] ([id number]) [address], [address] [place] [address] MAGNESIUMon 10-24-2024 Magnesium [Mass/Vol] 2.1 mg/dL Normal 1.8-2.6 [facility] Comment on above: Performed By: #### C BC, BMP, 71050-9, 77367-1 #### [facility] ([id number]) [address], [address] [place] [address] BASIC METABOLIC PANELon 05-0 Anion gap [Moles/Vol] 8 mmol/L Normal 5-15 [facility] Comment on above: Performed By: #### C BC, BMP, 48487-1, 05235-2 #### [facility] ([id number]) [address], [address] [place] [address] Calcium [Mass/Vol] 8.2 mg/dL Low 8.5-10.5 [facility] [place] Comment on above: Performed By: #### C BC, BMP, 13414-6, 22288-0 #### [facility] ([id number]) [address], [address] [place] [address] Chloride [Moles/Vol] 102 mmol/L Normal 98-109 [facility] [place] Comment on above: Performed By: #### C DEE GAMA, 43354-3, 20226-3 #### [facility] ([id number]) [address], [address] [place] [address] CO2 [Moles/Vol] 29 mmol/L Normal 22-32 [facility] Comment on above: Performed By: #### C DEE GAMA, 58531-9, 00105-4 #### [facility] ([id number]) [address], [facility] [address] [place] [address] Creatinine [Mass/Vol] 1.13 mg/dL Normal 0.60-1.30 [facility] Comment on above: Result Comment: METH OD TRACEABLE TO IDMS STANDARD Performed By: #### C DEE GAMA, 16114-9, 68069-9 #### [facility] ([id number]) [address], [facility] [address] [place] [address] GFR/1.73 sq M.predicted among non-blacks MDRD (S/P/Bld) [Vol rate/Area] 75 mL/min/{1.73_m2} Normal >=60 [facility] Comment on above: Result Comment: Repo ed eGFR is based on the CKD-EPI 2020 equation that does not use a race coefficient. Performed By: #### C DEE GAMA, 55778-8, 16100-7 #### [facility] ([id number]) [address], [address] [place] [address] Glucose [Mass/Vol] 88 mg/dL Normal 65-99 [facility] [place] Comment on above: Performed By: #### C DEE GAMA, 59105-1, 21476-1 #### [facility] ([id number]) [address], [address] [place] [address] Potassium [Moles/Vol] 4.2 mmol/L Normal 3.5-5.0 [facility] Comment on above: Performed By: #### C NATAN, BMP, 93821-3, 37038-7 #### [facility] ([id number]) [address], [address] [place] [address] Sodium [Moles/Vol] 139 mmol/L Normal 134-146 [facility] [place] Comment on above: Performed By: #### C NATAN, BMP, 62242-0, 58855-3 #### [facility] ([id number]) [address], [facility] [address] [place] [address] Urea nitrogen [Mass/Vol] 24 mg/dL High 5-23 [facility] Comment on above: Performed By: #### C NATAN, BMP, 72598-2, 22435-5 #### [facility] ([id number]) [address], [address] [place] [address] CBC (NO DIFF)on 10-23-2024 Erythrocyte distribution width (RBC) [Ratio] 17.1 % High 11.5-15 [facility] Comment on above: Performed By: #### C NATAN, DEE, 64451-7, 84962-5 #### [facility] ([id number]) [address], [address] [place] [address] Hematocrit (Bld) [Volume fraction] 39.4 % Normal 39-50 [facility] Comment on above: Performed By: #### C NATAN, BMP, 97918-8, 30376-3 #### [facility] ([id number]) [address], [address] [place] [address] Hemoglobin (Bld) [Mass/Vol] 13.0 g/dL Normal 13-17 [facility] Comment on above: Performed By: #### C NATAN, BMP, 52897-7, 29937-2 #### [facility] ([id number]) [address], [address] [place] [address] MCH (RBC) [Entitic mass] 25.1 pg Low 27-34 [facility] Comment on above: Performed By: #### C NATAN, BMP, 60022-5, 56616-4 #### [facility] ([id number]) [address], [address] [place] [address] MCHC (RBC) [Mass/Vol] 33.1 g/dL Normal 32-36 [facility] Comment on above: Performed By: #### Emily GAMA, BMP, 54112-8, 19690-2 #### [facility] ([id number]) [address], [facility] [address] [place] [address] MCV (RBC) [Entitic vol] 76 fL Low 80-100 [facility] Comment on above: Performed By: #### Emily GAMA, BMP, 19466-3, 07571-0 #### [facility] ([id number]) [address], [address] [place] [address] Platelet mean volume (Bld) [Entitic vol] 6.7 fL Low 7-12 [facility] Comment on above: Performed By: #### Emily GAMA, BMP, 31251-1, 43048-1 #### [facility] ([id number]) [address], [address] [place] [address] Platelets (Bld) [#/Vol] 55 10*3/uL Low 150-450 [facility] Comment on above: Performed By: #### Emily BC, BMP, 52456-1, 27481-8 #### [facility] ([id number]) [address], [address] [place] [address] RBC COUNT 5.18 X10E12/L Normal 4.1-5.7 [facility] Comment on above: Performed By: #### Emily GAMA, BMP, 12240-7, 25781-4 #### [facility] ([id number]) [address], [address] [place] [address] WBC (Bld) [#/Vol] 3.6 10*3/uL Low 4-11 [facility] [place] Comment on above: Performed By: #### C BC, BMP, 82398-4, 95233-7 #### [facility] ([id number]) [address], [address] [place] [address] MAGNESIUMon 10-23-2024 Magnesium [Mass/Vol] 2.1 mg/dL Normal 1.8-2.6 [facility] [place] Comment on above: Performed By: #### C NATAN, BMP, 27293-2, 67861-6 #### [facility] ([id number]) [address], [address] [place] [address] BASIC METABOLIC PANELon 05-0 Anion gap [Moles/Vol] 6 mmol/L Normal 5-15 [facility] Comment on above: Performed By: #### Emily BC, BMP, 57322-3, 92974-8 #### [facility] ([id number]) [address], [address] [place] [address] Calcium [Mass/Vol] 8.6 mg/dL Normal 8.5-10.5 [facility] [place] Comment on above: Performed By: #### Emily GAMA, BMP, 73390-3, 35238-6 #### [facility] ([id number]) [address], [address] [place] [address] Chloride [Moles/Vol] 101 mmol/L Normal 98-109 [facility] [place] Comment on above: Performed By: #### C BC, BMP, 16554-8, 70211-9 #### [facility] ([id number]) [address], [address] [place] [address] CO2 [Moles/Vol] 32 mmol/L Normal 22-32 [facility] Comment on above: Performed By: #### Emily BC, BMP, 49787-3, 92956-7 #### [facility] ([id number]) [address], [address] [place] [address] Creatinine [Mass/Vol] 1.31 mg/dL High 0.60-1.30 [facility] Comment on above: Result Comment: METH OD TRACEABLE TO IDMS STANDARD Performed By: #### C BC, BMP, 32776-0, 04878-7 #### [facility] ([id number]) [address], [address] [place] [address] GFR/1.73 sq M.predicted among non-blacks MDRD (S/P/Bld) [Vol rate/Area] 63 mL/min/{1.73_m2} Normal >=60 [facility] Comment on above: Result Comment: [facility] eGFR is based on the CKD-EPI 2020 equation that does not use a race coefficient. Performed By: #### C NATAN, BMP, 71760-9, 86460-5 #### [facility] ([id number]) [address] [address] [place] [address] Glucose [Mass/Vol] 77 mg/dL Normal 65-99 [facility] [place] Comment on above: Performed By: #### Emily GAMA, BMP, 90460-2, 75798-3 #### [facility] ([id number]) [address] [address] [place] [address] Potassium [Moles/Vol] 4.5 mmol/L Normal 3.5-5.0 [facility] Comment on above: Performed By: #### C BC, BMP, 30194-4, 50978-4 #### [facility] ([id number]) [address] [address] [place] [address] Sodium [Moles/Vol] 139 mmol/L Normal 134-146 [facility] [place] Comment on above: Performed By: #### Emily BC, BMP, 05795-9, 63863-5 #### [facility] ([id number]) [address], [address] [place] [address] [place] [address] Urea nitrogen [Mass/Vol] 24 mg/dL High 5-23 [facility] Comment on above: Performed By: #### C BC, BMP, 32701-6, 43522-0 #### [facility] ([id number]) [address], [facility] [address] [place] [address] CBC (NO DIFF)on 10-22-2024 Erythrocyte distribution width (RBC) [Ratio] 17.2 % High 11.5-15 [facility] Comment on above: Performed By: #### C BC, BMP, 46711-1, 86724-0 #### [facility] ([id number]) [address], [facility] [address] [place] [address] Hematocrit (Bld) [Volume fraction] 40.6 % Normal 39-50 [facility] Comment on above: Performed By: #### C BC, BMP, 57308-1, 37773-0 #### [facility] ([id number]) [address], [facility] [address] [place] [address] Hemoglobin (Bld) [Mass/Vol] 13.1 g/dL Normal 13-17 [facility] Comment on above: Performed By: #### C BC, BMP, 04537-8, 38354-7 #### [facility] ([id number]) [address], [facility] [address] [place] [address] MCH (RBC) [Entitic mass] 24.7 pg Low 27-34 [facility] Comment on above: Performed By: #### C BC, BMP, 80522-8, 64259-6 #### [facility] ([id number]) [address], [facility] [address] [place] [address] MCHC (RBC) [Mass/Vol] 32.2 g/dL Normal 32-36 [facility] Comment on above: Performed By: #### C BC, BMP, 43498-2, 89749-0 #### [facility] ([id number]) [address], [address] [place] [address] MCV (RBC) [Entitic vol] 77 fL Low 80-100 [facility] Comment on above: Performed By: #### DEE MOORE, 77059-8, 94520-1 #### [facility] ([id number]) [address], [address] [place] [address] Platelet mean volume (Bld) [Entitic vol] 6.9 fL Low 7-12 [facility] Comment on above: Performed By: #### C DEE GAMA, 91209-5, 17971-2 #### [facility] ([id number]) [address], [facility] [address] [place] [address] Platelets (Bld) [#/Vol] 65 10*3/uL Low 150-450 [facility] Comment on above: Performed By: #### DEE MOORE, 67210-5, 31496-0 #### [facility] ([id number]) [address], [address] [place] [address] RBC COUNT 5.29 X10E12/L Normal 4.1-5.7 [facility] Comment on above: Performed By: #### DEE MOORE, 65744-6, 69958-8 #### [facility] ([id number]) [address], [facility] [address] [place] [address] WBC (Bld) [#/Vol] 4.4 10*3/uL Normal 4-11 [facility] [place] Comment on above: Performed By: #### DEE MOORE, 18217-9, 43832-5 #### [facility] ([id number]) [address], [address] [place] [address] FREE LIGHT CHAINSon 05-05-20 25 FREE SHENA/LAMBD RATIO 1.25 Normal 0.26-1.65 [facility] [place] Comment on above: Performed By: #### C BC, BMP, 56729-0, 66536-5 #### [facility] ([id number]) [address], [address] [place] [address] FREE KAPPA LT CHAINS 2.35 mg/dL High 0.33-1.94 [facility] [place] Comment on above: Performed By: #### C BC, BMP, 45576-6, 93966-3 #### [facility] ([id number]) [address], [address] [place] [address] FREE LAMBDA LT CHAINS 1.88 mg/dL Normal 0.57-2.63 [facility] Comment on above: Performed By: #### C BC, BMP, 14985-5, 37556-7 #### [facility] ([id number]) [address], [address] [place] [address] MAGNESIUMon 10-22-2024 Magnesium [Mass/Vol] 2.1 mg/dL Normal 1.8-2.6 [facility] [place] Comment on above: Performed By: #### C BC, BMP, 10630-1, 95940-4 #### [facility] ([id number]) [address], [address] [place] [address] MR CERVICAL SPINE WO CONTon 10-22-2024 MR [...] Lu MD on 10/22/2024 7:28 AM Normal [facility] MR LUMBAR SPINE WO CONTon MR [...] Lu MD on 10/22/2024 7:24 AM Normal [facility] SERUM IMMUNOFIXATIONon 10-22 IgA [Mass/Vol] 285 mg/dL Normal 68-378 [facility] Comment on above: Performed By: #### C NATAN BMP, 12427-2, 13777-6 #### [facility] ([id number]) [address], [address] [place] [address] IgG [Mass/Vol] 1378 mg/dL Normal 635-1741 [facility] Comment on above: Performed By: #### C BC BMP, 20592-2, 43367-0 #### [facility] ([id number]) [address], [address] [place] [address] IgM [Mass/Vol] 54 mg/dL Normal 45-281 [facility] Comment on above: Performed By: #### C BC BMP, 02769-3, 88851-9 #### [facility] ([id number]) [address], [address] [place] [address] IMMUNOFIX INTERP Unremarkable pattern and quantitation, no monoclonal bands Normal [facility] Comment on above: Performed By: #### C BC, BMP, 05357-1, 46186-5 #### [facility] ([id number]) [address], [address] [place] [address] VALPROIC ACID, FREE, Son VALPROIC ACID, FREE 22 mcg/mL Normal 5-25 [facility] Comment on above: Result Comment: Test Performed by: [place] [address] Manager Relocation: Eduardo Clark Ph.D.; CLIA# [id number] Performed By: #### C BC, BMP, 23625-5, 63785-9 #### [facility] ([id number]) [address], [address] [place] [address] BASIC METABOLIC PANELon 05- Anion gap [Moles/Vol] 6 mmol/L Normal 5-15 [facility] Comment on above: Performed By: #### C BC, BMP, 11674-6, 07946-1 #### [facility] ([id number]) [address], [address] [place] [address] Calcium [Mass/Vol] 8.8 mg/dL Normal 8.5-10.5 [facility] [place] Comment on above: Performed By: #### Emily GAMA, BMP, 10960-0, 93764-2 #### [facility] ([id number]) [address], [address] [place] [address] Chloride [Moles/Vol] 101 mmol/L Normal 98-109 [facility] Comment on above: Performed By: #### C BC, BMP, 44597-9, 08971-4 #### [facility] ([id number]) [address], [address] [place] [address] CO2 [Moles/Vol] 32 mmol/L Normal 22-32 [facility] Comment on above: Performed By: #### C BC, BMP, 86697-2, 27536-0 #### [facility] ([id number]) [address], [address] [place] [address] Creatinine [Mass/Vol] 1.04 mg/dL Normal 0.60-1.30 [facility] Comment on above: Result Comment: METH OD TRACEABLE TO IDMS STANDARD Performed By: #### C DEE GAMA, 69643-8, 13369-5 #### [facility] ([id number]) [address], [facility] [address] [place] [address] GFR/1.73 sq M.predicted among non-blacks MDRD (S/P/Bld) [Vol rate/Area] 83 mL/min/{1.73_m2} Normal >=60 [facility] Comment on above: Result Comment: [facility] eGFR is based on the CKD-EPI 2020 equation that does not use a race coefficient. Performed By: #### C DEE GAMA, 14156-4, 50445-0 #### [facility] ([id number]) [address], [address] [place] [address] Glucose [Mass/Vol] 87 mg/dL Normal 65-99 [facility] [place] Comment on above: Performed By: #### DEE MOORE, 73163-4, 39088-7 #### [facility] ([id number]) [address] [address] [place] [address] Potassium [Moles/Vol] 4.3 mmol/L Normal 3.5-5.0 [facility] Comment on above: Performed By: #### C NATAN, BMP, 47597-3, 35970-6 #### [facility] ([id number]) [address] [address] [place] [address] Sodium [Moles/Vol] 139 mmol/L Normal 134-146 [facility] Comment on above: Performed By: #### Emily BC, BMP, 30220-0, 39902-9 #### [facility] ([id number]) [address] [address] [place] [address] Urea nitrogen [Mass/Vol] 15 mg/dL Normal 5-23 [facility] Comment on above: Performed By: #### C BC, BMP, 25474-4, 55985-4 #### [facility] ([id number]) [address] [address] [place] [address] CBC (NO DIFF)on 10-21-2024 Erythrocyte distribution width (RBC) [Ratio] 16.8 % High 11.5-15 [facility] Comment on above: Performed By: #### C BC, BMP, 79970-6, 64343-5 #### [facility] ([id number]) [address] [address] Hematocrit (Bld) [Volume fraction] 44.6 % Normal 39-50 [facility] Comment on above: Performed By: #### C BC, BMP, 34982-6, 62841-7 #### [facility] ([id number]) [address] [address] Hemoglobin (Bld) [Mass/Vol] 14.5 g/dL Normal 13-17 [facility] Comment on above: Performed By: #### Emily BC, BMP, 74658-8, 23070-0 #### [facility] ([id number]) [address] [address] MCH (RBC) [Entitic mass] 24.9 pg Low 27-34 [facility] Comment on above: Performed By: #### C BC, BMP, 03885-6, 28070-8 #### [facility] ([id number]) [address] [address] MCHC (RBC) [Mass/Vol] 32.6 g/dL Normal 32-36 [facility] Comment on above: Performed By: #### C BC, BMP, 07782-2, 30065-0 #### [facility] ([id number]) [address], [address] [place] [address] MCV (RBC) [Entitic vol] 76 fL Low 80-100 [facility] Comment on above: Performed By: #### C NATAN, BMP, 14221-7, 63601-6 #### [facility] ([id number]) [address], [address] [place] [address] Platelet mean volume (Bld) [Entitic vol] 7.1 fL Normal 7-12 [facility] Comment on above: Performed By: #### C NATAN, BMP, 76530-6, 46062-0 #### [facility] ([id number]) [address] [place] [address] Platelets (Bld) [#/Vol] 57 10*3/uL Low 150-450 [facility] Comment on above: Performed By: #### Emily GAMA, BMP, 79085-8, 03054-3 #### [facility] ([id number]) [address], [address] [place] [address] RBC COUNT 5.83 X10E12/L High 4.1-5.7 [facility] Comment on above: Performed By: #### Emily GAMA, DEE, 73714-9, 32791-9 #### [facility] ([id number]) [address], [address] [place] [address] WBC (Bld) [#/Vol] 3.1 10*3/uL Low 4-11 [facility] Comment on above: Performed By: #### Emily GAMA, BMP, 52814-4, 87004-1 #### [facility] ([id number]) [address] [place] [address] MAGNESIUMon 10-21-2024 Magnesium [Mass/Vol] 2.1 mg/dL Normal 1.8-2.6 [facility] Comment on above: Performed By: #### C NATAN, DEE, 15251-9, 19902-5 #### [facility] ([id number]) [address] [place] [address] US ABDOMEN LMTDon 10-21-2024 US ABDOMEN LMTD [...] Juarez MD on 10/21/2024 2:02 PM Normal [facility] VALPROIC ACID DEPAKANEon VALPROIC ACID 91 ug/mL Normal 50-100 [facility] Comment on above: Performed By: #### Emily GAMA, DEE, 90957-5, 93628-3 #### [facility] ([id number]) [address] [address] [place] [address] BASIC METABOLIC PANELon 05-0 Anion gap [Moles/Vol] 6 mmol/L Normal 5-15 [facility] Comment on above: Performed By: #### Emily GAMA, BMP, 60855-6, 01383-4 #### [facility] ([id number]) [address] [address] [place] [address] Calcium [Mass/Vol] 8.2 mg/dL Low 8.5-10.5 [facility] Comment on above: Performed By: #### Emily GAMA, DEE, 53830-9, 00277-4 #### [facility] ([id number]) [address] [address] [place] [address] Chloride [Moles/Vol] 102 mmol/L Normal 98-109 [facility] Comment on above: Performed By: #### C DEE GAMA, 50932-5, 80487-7 #### [facility] ([id number]) [address] [place] [address] CO2 [Moles/Vol] 31 mmol/L Normal 22-32 [facility] Comment on above: Performed By: #### C DEE GAMA, 01154-2, 15102-3 #### [facility] ([id number]) [address] [place] [address] Creatinine [Mass/Vol] 1.12 mg/dL Normal 0.60-1.30 [facility] Comment on above: Result Comment: METH OD TRACEABLE TO IDMS STANDARD Performed By: #### DEE MOORE, 05353-4, 22073-0 #### [facility] ([id number]) [address] [place] [address] GFR/1.73 sq M.predicted among non-blacks MDRD (S/P/Bld) [Vol rate/Area] 76 mL/min/{1.73_m2} Normal >=60 [facility] Comment on above: Result Comment: [facility] eGFR is based on the CKD-EPI 2020 equation that does not use a race coefficient. Performed By: #### C DEE GAMA, 79644-9, 55793-6 #### [facility] ([id number]) [address] [place] [address] Glucose [Mass/Vol] 92 mg/dL Normal 65-99 [facility] Comment on above: Performed By: #### DEE MOORE, 35921-2, 25802-3 #### [facility] ([id number]) [address], [address] [place] [address] Potassium [Moles/Vol] 3.7 mmol/L Normal 3.5-5.0 [facility] Comment on above: Performed By: #### C BC, BMP, 25231-2, 73655-8 #### [facility] ([id number]) [address] [address] [place] [address] Sodium [Moles/Vol] 139 mmol/L Normal 134-146 [facility] Comment on above: Performed By: #### C BC, BMP, 42070-4, 04699-0 #### [facility] ([id number]) [address] [place] [address] Urea nitrogen [Mass/Vol] 15 mg/dL Normal 5-23 [facility] Comment on above: Performed By: #### C BC, BMP, 15407-8, 45593-8 #### [facility] ([id number]) [address], [facility] [address] [place] [address] CBC (NO DIFF)on 10-20-2024 Erythrocyte distribution width (RBC) [Ratio] 16.9 % High 11.5-15 [facility] Comment on above: Performed By: #### C BC, BMP, 90834-5, 71146-3 #### [facility] ([id number]) [address] [place] [address] Hematocrit (Bld) [Volume fraction] 39.2 % Normal 39-50 [facility] Comment on above: Performed By: #### C BC, BMP, 22000-9, 14297-1 #### [facility] ([id number]) [address] [place] [address] Hemoglobin (Bld) [Mass/Vol] 12.9 g/dL Low 13-17 [facility] Comment on above: Performed By: #### C BC, BMP, 23824-1, 71517-6 #### [facility] ([id number]) [address] [place] [address] MCH (RBC) [Entitic mass] 25.2 pg Low 27-34 [facility] Comment on above: Performed By: #### C BC, BMP, 73566-6, 13438-7 #### [facility] ([id number]) [address], [facility] [address] [place] [address] MCHC (RBC) [Mass/Vol] 33.0 g/dL Normal 32-36 [facility] Comment on above: Performed By: #### Emily BC, BMP, 66081-1, 99923-3 #### [facility] ([id number]) [address], [facility] [address] [place] [address] MCV (RBC) [Entitic vol] 77 fL Low 80-100 [facility] Comment on above: Performed By: #### Emily GAMA, BMP, 77848-0, 47935-7 #### [facility] ([id number]) [address] [place] [address] Platelet mean volume (Bld) [Entitic vol] 7.1 fL Normal 7-12 [facility] Comment on above: Performed By: #### Emily GAMA, BMP, 27806-4, 16121-0 #### [facility] ([id number]) [address], [facility] [address] [place] [address] Platelets (Bld) [#/Vol] 57 10*3/uL Low 150-450 [facility] Comment on above: Performed By: #### Emily BC, BMP, 95848-4, 82393-4 #### [facility] ([id number]) [address], [facility] [address] [place] [address] RBC COUNT 5.13 X10E12/L Normal 4.1-5.7 [facility] Comment on above: Performed By: #### Emily BC, BMP, 01624-4, 94316-2 #### [facility] ([id number]) [address], [address] [place] [address] WBC (Bld) [#/Vol] 2.6 10*3/uL Low 4-11 [facility] Comment on above: Performed By: #### C BC, BMP, 60240-6, 08254-1 #### [facility] ([id number]) [address], [address] [place] [address] FIBRIN SPLIT PRODUCTSon 05-0 FIBRIN SPLIT PRODUCT <5 Normal <5 [facility] Comment on above: Performed By: #### C BC, BMP, 26865-4, 48547-5 #### [facility] ([id number]) [address], [address] [address] HEPATITIS PANEL, ACUTEon ANTI HCV W/PCR REFLX Non-Reactive Normal Non-Namrata ctiv e [facility] Comment on above: Result Comment: If r ecent infection suspected, recommend repeat testing (>2 months). Bnozkt-tu-gqhqfh ratio is <1.0. Performed By: #### C BC, BMP, 23590-3, 39997-5 #### [facility] ([id number]) [address], [address] [address] HEPATITIS A IGM Non-Reactive Normal Non-Reactiv e [facility] Comment on above: Performed By: #### Emily BC, BMP, 71032-4, 03891-5 #### [facility] ([id number]) [address], [address] [place] [address] HEPATITIS B CORE IGM Non-Reactive Normal Non-Namrata ctiv e [facility] Comment on above: Performed By: #### C BC, BMP, 41419-1, 86725-6 #### [facility] ([id number]) [address], [address] [place] [address] HEPATITIS B SURF AG Non-Reactive Normal Non-Reac tiv e [facility] Comment on above: Performed By: #### C BC, BMP, 58669-9, 47361-8 #### [facility] ([id number]) [address], [address] [place] [address] IMMATURE PLATELET FRACTIONon 10-20-2024 IMMATURE PLATELET FRACTION 1.2 % Normal 1.0-11.4 [facility] Comment on above: Result Comment: Perf ormed At: [facility] ([facility] [place] [place] [address] Specialty Transformer Assembler: DO RUBEN AN Number: [id number] Performed By: #### C NATAN, DEE, 32714-9, 15046-0 #### [facility] ([id number]) [address], [address] [place] [address] MAGNESIUMon 10-20-2024 Magnesium [Mass/Vol] 2.1 mg/dL Normal 1.8-2.6 [facility] Comment on above: Performed By: #### C NATAN, DEE, 66691-8, 75106-3 #### [facility] ([id number]) [address], [address] [place] [address] GARCIA GENERIC ORDERon 025 TEST RESULT SEE COMMENTS Normal [facility] Comment on above: [...] method is an immunoenzymatic assay manufactured by [employer] and performed on the Surveyp[employer] DxI 800. Values obtained with different assay methods or kits may be different and cannot be used interchangeably. Test results cannot be interpreted as absolute evidence for the presence or absence of malignant disease. Test Performed by: [facility] [address] [place] [address] Manager Relocation: Eduardo Clark Ph.D.; CLIA# [id number] Performed By: #### DEE MOORE, 54107-1, 15552-5 #### [facility] ([id number]) [address], [address] [place] [address] POTASSIUMon 10-20-2024 Potassium [Moles/Vol] 4.6 mmol/L Normal 3.5-5.0 [facility] Comment on above: Performed By: #### C DEE GAMA, 25667-1, 57656-5 #### [facility] ([id number]) [address], [address] [place] [address] PROSTATE HEALTH INDEX REFLEX (PHI13)on 10-20-2024 PROSTATE HEALTH INDX SEE COMMENTS Normal [facility] Comment on above: Result [...] method is an immunoenzymatic assay manufactured by [employer] and performed on the Surveypal DxI 800. Values obtained with different assay methods or kits may be different and cannot be used interchangeably. Test results cannot be interpreted as absolute evidence for the presence or absence of malignant disease. Test Performed by: [facility] [address] [place] [address] Manager Relocation: Eduardo Clark Ph.D.; CLIA# [id number] Performed By: #### C BC, BMP, 35437-0, 81304-9 #### [facility] ([id number]) [address] [facility] [address] [place] [address] PSA W/ REFLEX TO PROSTATE HE ALTH INDEXon 10-20-2024 PSA W/ REFLEX TO PHI SEE COMMENTS Abnormal [facility] Comment on above: Result Comment: Test Result Flag Unit RefValue ------ Prostate Health Index Reflex, S Prostate Specific Antigen, S 5.7 H ng/mL <=3.5 Test Performed by: [facility] [address] [place] [address] Manager Relocation: Eduardo Clark Ph.D.; CLIA# [id number] Performed By: #### C DEE GAMA, 13593-3, 06195-4 #### [facility] ([id number]) [address], [address] [place] [address] URINALYSISon 10-20-2024 Bilirubin Ql (U) Negative Normal Negative [facility] Comment on above: Performed By: #### DEE MOORE, 78852-2, 94248-9 #### [facility] ([id number]) [address], [address] [place] [address] BLOOD/HGB Negative Normal Negative [facility] Comment on above: Performed By: #### DEE MOORE, 07194-9, 28520-6 #### [facility] ([id number]) [address], [address] [place] [address] Color (U) Yellow Normal Yellow, Colorless [facility] Comment on above: Performed By: #### DEE MOORE, 49109-6, 65213-2 #### [facility] ([id number]) [address], [address] [place] [address] Glucose Ql (U) Negative Normal Negative [facility] Comment on above: Performed By: #### C BC, BMP, 60911-6, 06631-2 #### [facility] ([id number]) [address], [address] [place] [address] Ketones Ql (U) Negative Normal Negative [facility] Comment on above: Performed By: #### C BC, BMP, 46470-3, 74330-5 #### [facility] ([id number]) [address], [address] [place] [address] Leukocyte esterase Test strip Ql (U) Negative Normal Negative [facility] Comment on above: Performed By: #### C NATAN, BMP, 78304-3, 99738-6 #### [facility] ([id number]) [address], [address] [place] [address] Nitrite Ql (U) Negative Normal Negative [facility] Comment on above: Performed By: #### Emily GAMA, BMP, 71742-7, 61908-8 #### [facility] ([id number]) [address], [address] [place] [address] PH,URINE 7.0 Normal 5.0-8.5 [facility] Comment on above: Performed By: #### Emily GAMA, BMP, 40341-9, 73523-3 #### [facility] ([id number]) [address], [address] [place] [address] Protein Ql (U) Negative Normal Negative [facility] Comment on above: Performed By: #### C NATAN, BMP, 90510-0, 09511-4 #### [facility] ([id number]) [address], [address] [place] [address] Specific gravity (U) [Rel density] 1.013 Normal 1.003-1.035 [facility] Comment on above: Performed By: #### C BC, BMP, 07729-8, 48447-4 #### [facility] ([id number]) [address], [address] [place] [address] TURBIDITY Clear Normal Clear [facility] Comment on above: Performed By: #### C BC, BMP, 81769-9, 47308-6 #### [facility] ([id number]) [address], [address] [place] [address] UROBILINOGEN <1.1 eu/dL Normal <1.1 eu/dL [facility] Comment on above: Performed By: #### C BC, BMP, 28073-9, 32717-2 #### [facility] ([id number]) [address] [place] [address] APTTon 10-19-2024 aPTT Coag (Bld) [Time] 29 s Normal 26-37 [facility] Comment on above: Performed By: #### Emily GAMA, BMP, 36681-3, 2776-, THYR #### [facility] ([id number]) [address] [place] [address] CBC WITH AUTO DIFFERENTIALon 10-19-2024 BASOPHILS ABSOLUTE COUNT (10*3/UL) BY AUTOMATED COUNT 0.0 10*3/uL Normal [facility] Comment on above: Performed By: #### Emily BC, BMP, 88589-4, 2776-, THYR #### [facility] ([id number]) [address], [address] [address] BASOPHILS RELATIVE PERCENT BY AUTOMATED COUNT 0.4 % Normal [facility] Comment on above: Performed By: #### Emily BC, BMP, 49369-6, 2776-, THYR #### [facility] ([id number]) [address], [address] [place] [address] CELLAVISION DIFFERENTIAL TYPE AUTOMATED DIFFERENTIAL Normal [facility] Comment on above: Performed By: #### Emily BC, BMP, 80066-6, 2776-, THYR #### [facility] ([id number]) [address], [address] [place] [address] Eosinophils (Bld) [#/Vol] 0.1 10*3/uL Normal [facility] Comment on above: Performed By: #### C BC, BMP, , 2776-06, THYR #### [facility] ([id number]) [address], [facility] [address] [place] [address] EOSINOPHILS RELATIVE PERCENT BY AUTOMATED COUNT 2.1 % Normal [facility] Comment on above: Performed By: #### C NATAN, BMP, , 2776-06, THYR #### [facility] ([id number]) [address] [address] Erythrocyte distribution width (RBC) [Ratio] 16.6 % High 11.5-15 [facility] Comment on above: Performed By: #### Emily BC, BMP, , 2776-06, THYR #### [facility] ([id number]) [address] [place] [address] Hematocrit (Bld) [Volume fraction] 36.9 % Low 39-50 [facility] Comment on above: Performed By: #### C NATAN, BMP, , 2776-06, THYR #### [facility] ([id number]) [address] [address] Hemoglobin (Bld) [Mass/Vol] 12.2 g/dL Low 13-17 [facility] Comment on above: Performed By: #### C BC, BMP, , 2776-06, THYR #### [facility] ([id number]) [address] [address] LYMPHOCYTES ABSOLUTE COUNT (10*3/UL) BY AUTOMATED COUNT 1.1 10*3/uL Normal [facility] Comment on above: Performed By: #### C BC, BMP, , 2776-06, THYR #### [facility] ([id number]) [address], [address] [place] [address] LYMPHOCYTES RELATIVE PERCENT BY AUTOMATED COUNT 39.1 % Normal [facility] Comment on above: Performed By: #### C BC, BMP, , 2776-06, THYR #### [facility] ([id number]) [address], [facility] [address] [place] [address] MCH (RBC) [Entitic mass] 24.9 pg Low 27-34 [facility] Comment on above: Performed By: #### C BC, [facility], , 2776-06, THYR #### [facility] ([id number]) [address], [facility] [address] [place] [address] MCHC (RBC) [Mass/Vol] 32.9 g/dL Normal 32-36 [facility] Comment on above: Performed By: #### C BC, [facility], , 2776-06, THYR #### [facility] ([id number]) [address] [address] MCV (RBC) [Entitic vol] 76 fL Low 80-100 [facility] Comment on above: Performed By: #### C NATAN, BMP, , 2776-06, THYR #### [facility] ([id number]) [address], [facility] [address] [place] [address] MONOCYTES ABSOLUTE COUNT (10*3/UL) BY AUTOMATED COUNT 0.3 10*3/uL Normal [facility] Comment on above: Performed By: #### C BC, BMP, , 2776-06, THYR #### [facility] ([id number]) [address] [place] [address] MONOCYTES RELATIVE PERCENT BY AUTOMATED COUNT 10.7 % Normal [facility] Comment on above: Performed By: #### C BC, BMP, , 2776-06, THYR #### [facility] ([id number]) [address], [address] [place] [address] NEUTROPHILS ABSOLUTE COUNT BY AUTOMATED COUNT 1.3 10*3/uL Normal [facility] Comment on above: Performed By: #### Emily BC, BMP, , 2776-06, THYR #### [facility] ([id number]) [address], [address] [place] [address] NEUTROPHILS RELATIVE PERCENT BY AUTOMATED COUNT 47.7 % Normal [facility] Comment on above: Performed By: #### Emily GAMA, BMP, , 2776-06, THYR #### [facility] ([id number]) [address], [address] [place] [address] Platelet mean volume (Bld) [Entitic vol] 6.9 fL Low 7-12 [facility] Comment on above: Performed By: #### Emily GAMA, BMP, , 2776-06, THYR #### [facility] ([id number]) [address], [address] [place] [address] Platelets (Bld) [#/Vol] 56 10*3/uL Low 150-450 [facility] Comment on above: Performed By: #### Emily BC, BMP, , 2776-06, THYR #### [facility] ([id number]) [address], [address] [place] [address] RBC COUNT 4.89 X10E12/L Normal 4.1-5.7 [facility] Comment on above: Performed By: #### Emily BC, BMP, , 2776-06, THYR #### [facility] ([id number]) [address], [address] [place] [address] WBC (Bld) [#/Vol] 2.7 10*3/uL Low 4-11 [facility] Comment on above: Performed By: #### C BC, BMP, , 2776-06, THYR #### [facility] ([id number]) [address], [address] [place] [address] CK TOTALon 10-19-2024 CPK 38 U/L Normal 24-195 [facility] Comment on above: Performed By: #### C BC, BMP, , 2776-06, THYR #### [facility] ([id number]) [address], [address] [place] [address] COMPREHENSIVE METABOLIC PANE Jatin 10-19-2024 Albumin [Mass/Vol] 3.0 g/dL Low 3.2-5.3 [facility] Comment on above: Performed By: #### C BC, BMP, , 2776-06, THYR #### [facility] ([id number]) [address], [address] [place] [address] ALP [Catalytic activity/Vol] 34 U/L Low 39-130 [facility] Comment on above: Performed By: #### C BC, BMP, , 2776-06, THYR #### [facility] ([id number]) [address], [address] [place] [address] ALT [Catalytic activity/Vol] 12 U/L Normal <=40 [facility] Comment on above: Performed By: #### C BC, BMP, , 2776-06, THYR #### [facility] ([id number]) [address], [address] [place] [address] Anion gap [Moles/Vol] 4 mmol/L Low 5-15 [facility] Comment on above: Performed By: #### C BC, BMP, , 2776-06, THYR #### [facility] ([id number]) [address], [address] [place] [address] AST [Catalytic activity/Vol] 16 U/L Normal <=41 [facility] Comment on above: Performed By: #### C NATAN, BMP, , 2776-06, THYR #### [facility] ([id number]) [address], [address] [place] [address] Bilirubin [Mass/Vol] 0.8 mg/dL Normal 0.3-1.2 [facility] Comment on above: Performed By: #### C NATAN, BMP, , 2776-06, THYR #### [facility] ([id number]) [address] [place] [address] Calcium [Mass/Vol] 7.8 mg/dL Low 8.5-10.5 [facility] Comment on above: Performed By: #### C NATAN, BMP, , 2776-06, THYR #### [facility] ([id number]) [address], [address] [place] [address] Chloride [Moles/Vol] 103 mmol/L Normal 98-109 [facility] Comment on above: Performed By: #### C NATAN, BMP, , 2776-06, THYR #### [facility] ([id number]) [address], [address] [place] [address] CO2 [Moles/Vol] 33 mmol/L High 22-32 [facility] Comment on above: Performed By: #### C BC, BMP, , 2776-06, THYR #### [facility] ([id number]) [address], [address] [place] [address] Creatinine [Mass/Vol] 1.04 mg/dL Normal 0.60-1.30 [facility] Comment on above: Result Comment: METH OD TRACEABLE TO IDMS STANDARD Performed By: #### C NATAN, BMP, , 2776-06, THYR #### [facility] ([id number]) [address], [address] [place] [address] GFR/1.73 sq M.predicted among non-blacks MDRD (S/P/Bld) [Vol rate/Area] 83 mL/min/{1.73_m2} Normal >=60 [facility] Comment on above: Result Comment: [facility] eGFR is based on the CKD-EPI 2020 equation that does not use a race coefficient. Performed By: #### C NATAN, BMP, , 2776-06, THYR #### [facility] ([id number]) [address], [address] [place] [address] Glucose [Mass/Vol] 108 mg/dL High 65-99 [facility] Comment on above: Performed By: #### C NATAN, [facility], , 2776-06, THYR #### [facility] ([id number]) [address], [address] [place] [address] Potassium [Moles/Vol] 4.1 mmol/L Normal 3.5-5.0 [facility] Comment on above: Performed By: #### Emily BC, BMP, , 2776-06, THYR #### [facility] ([id number]) [address] [place] [address] Protein [Mass/Vol] 5.3 g/dL Low 6.0-8.0 [facility] Comment on above: Performed By: #### C BC, BMP, , 2776-06, THYR #### [facility] ([id number]) [address] [place] [address] Sodium [Moles/Vol] 140 mmol/L Normal 134-146 [facility] Comment on above: Performed By: #### C BC, BMP, , 2777-1, THYR #### [facility] ([id number]) [address] [place] [address] Urea nitrogen [Mass/Vol] 21 mg/dL Normal 5-23 [facility] Comment on above: Performed By: #### C DEE GAMA, , 2776-06, THYR #### [facility] ([id number]) [address] [place] [address] CT BRAIN WO CONTon CT BRAIN WO [...] Mujica MD on 10/19/2024 5:00 AM Normal [facility] FERRITINon 10-19-2024 Ferritin [Mass/Vol] 208 ng/mL Normal 24-336 [facility] Comment on above: Performed By: #### C DEE GAMA, , 2776-06, THYR #### [facility] ([id number]) [address] [place] [address] FIBRINOGENon 10-19-2024 FIBRINOGEN 179 mg/dL Low 190-480 [facility] Comment on above: Performed By: #### C BC, BMP, , 2776-06, THYR #### [facility] ([id number]) [address] [place] [address] FOLATEon 10-19-2024 FOLIC ACID 9.7 ng/mL Normal >5.8 [facility] Comment on above: Performed By: #### C BC, BMP, , 2776-06, THYR #### [facility] ([id number]) [address] [place] [address] IRON AND TIBCon 10-19-2024 Iron [Mass/Vol] 96 ug/dL Normal 50-212 [facility] Comment on above: Performed By: #### Emily GAMA, BMP, , 2776-06, THYR #### [facility] ([id number]) [address] [place] [address] IRON BINDING 245 ug/dL Low 250-425 [facility] Comment on above: Performed By: #### C BC, BMP, , 2776-06, THYR #### [facility] ([id number]) [address] [place] [address] IRON SATURATION 39 % SATURATION Normal 20-50 [facility] Comment on above: Performed By: #### Emily BC, BMP, , 2776-06, THYR #### [facility] ([id number]) [address], [address] [place] [address] Transferrin [Mass/Vol] 175 mg/dL Normal 168-336 [facility] Comment on above: Performed By: #### C BC, BMP, , 2776-06, THYR #### [facility] ([id number]) [address], [address] [place] [address] MAGNESIUMon 10-19-2024 Magnesium [Mass/Vol] 2.0 mg/dL Normal 1.8-2.6 [facility] [place] Comment on above: Performed By: #### Emily GAMA BMP, , 2776-06, THYR #### [facility] ([id number]) [address], [address] [place] [address] MYOGLOBIN, SERUMon SERUM MYOGLOBIN 15.9 ng/mL Low 17.4-105.7 [facility] Comment on above: Performed By: #### Emily GAMA, BMP, 09459-3, 76369-9 #### [facility] ([id number]) [address], [address] [place] [address] PROTIME AND INRon 10-19-2024 INR 1.1 Normal 0.9-1.2 [facility] - [place] Comment on above: Performed By: #### DEE MOORE, , 2776-06, THYR #### [facility] ([id number]) [address], [address] [place] [address] PT Coag (PPP) [Time] 12.3 s Normal 9.8-13.2 [facility] Comment on above: Performed By: #### DEE MOORE, , 2776-06, THYR #### [facility] ([id number]) [address], [address] [place] [address] RETICULOCYTESon 10-19-2024 RETICULOCYTE COUNT 1.2 % Normal 0.4-2.2 [facility] Comment on above: Performed By: #### Emily GAMA, BMP, , 2776-06, THYR #### [facility] ([id number]) [address], [address] [place] [address] TROP I, HIGH SENSITIVITY 1 H OURon 10-19-2024 TROPONIN I, HIGH SENSITIVITY 5 ng/L Normal <21 [facility] Comment on above: Performed By: #### C BC, BMP, 05675-6, 2777-1, THYR #### [facility] ([id number]) [address], [address] [place] [address] TROPONIN I, HIGH SENSITIVITY 0 HOURon 10-19-2024 TROPONIN I, HIGH SENSITIVITY 4 ng/L Normal <21 [facility] Comment on above: Performed By: #### C BC, BMP, 13116-3, 45878-7 #### [facility] ([id number]) [address], [address] [place] [address] VITAMIN B12on 10-19-2024 Cobalamin (Vitamin B12) [Mass/Vol] 943 pg/mL High 180-914 [facility] Comment on above: Performed By: #### Emily GAMA, BMP, 01464-7, 2777-1, THYR #### [facility] ([id number]) [address], [address] [place] [address] XR CHEST 1 VWon 10-19-2024 XR CHEST [...] Sesay MD on 10/19/2024 4:33 AM Normal [facility] CNOVon 07-30-2024 CNOV Office Visit (RBMBHT) ESTELLA JEFFERY ([id number]) 1965 M Date Time Provider Department 07/30/24 12:40 PM FIDELINA FISHER [facility] During your visit today, we recorded the following information about you: Temperature Pulse Blood pressure Weight 97.6 degrees 84/minute 99/63 76.2 kg Fidelina Fisher, AND [employer].LEATHER COVERER 08/12/2024 10:55 PM Signed July 30, 2024 Reason for visit: Patient presents with: Consult Previous Visit: No previous PMANDR. HPI (brief) Estella Jeffery is a 59 year old male. PMHx of TBI and HDL. He had an unwitnessed fall down the stairs. Per family he had a fall in May 2024. He was evaluated at [facility] following the fall. Per he had an episode with agitation. Per family he was not displaying agitation prior to the fall. Family notes prior to his fall he was driving and independent with his care. He is now requiring a lot of assistance with care. Subjective: Patient presents with: Consult Family notes concerns with coordination. He has been following with [facility] for his dementia. Per his family his dementia symptoms seems to have worsen following his fall. He continues to have agitation surrounding doctors appointments, he associates doctors with long-term. Per family he had a rough admission with jalen at [facility] in [place]. He was started on Seroquel at bedtime. [...] Cognition: - has underline dementia. Following with [facility]. Sleep: - He has been having issues [...] and cranio-cervical junction. Flow voids documented in [place] [facility] [place] and dural venous sinuses. No [...] jaundice UE SAB EF EE WE WF Support Analyst R 5/5 5/5 5/5 5/5 5/5 5/5 L 5/5 5/5 5/5 5/5 5/5 5/5 LE HF KF KE PF DF R /5 5/5 5/5 5/5 5/5 L 5/5 5/5 5/5 5/5 5/5 IMPRESSION: Estella Jeffrey is a 59 year old male. PMHx of TBI and HDL. He had an unwitnessed fall (more content not included)... Normal [facility] 07-20-2024 CNPN Telephone (NEADMN) ESTELLA JEFFERY ([id number]) 1965 M Date Time Provider Department 07/20/24 [...] all declined. The family requests transfer to [facility] inpatient service for further cognitive evaluation and management. It sounds like the patient is appropriately managed thus far and has no ongoing inpatient care needs. Thus, hospital to hospital transfer is not likely to be beneficial. We discussed the 3 neurorehab centers in our network. Referring MD will confirm with spring encaser that referrals were sent to all 3. If the patient is discharged home or to SNF, we can potentially expedite an appointment with our PMR colleagues/TBI multidisciplinary clinic. I will alert Drs. Aguilar and Earl to the referral. Janice Mcdermott MD Allergies As of Date: 07/20/2024 (No Known Allergies) Date Reviewed: 10/12/2022 Reviewed by: Miguelito Chicas APRN.LEATHER COVERER - Fully Assessed Prescriptions as of 07/20/2024 [...] Status:Closed by JANICE MCDERMOTT on 07/20/24 [facility] Patient Letter FTon 2024 Patient Letter [facility] Patient Letter [facility] July 20, 2024 ESTELLA JEFFERY [address] [place] [id number] : 1965 Dear Mr. Jeffery, I am [...] Office Sincerely, Dr. Danni Graham [facility] [address] [place], [place] [address] [address] Normal [facility] TANNER Virus Antibody Reflex to Inhibition Assayon 07-19-2024 Interpretation and review of laboratory results Abnormal [facility] TANNER virus Ab IA Ql Positive Abnormal [facility] Comment on above: NOTE Index interpretive criteria: [...] index.(1) (1) TYSABRI(natalizumab)US Prescribing Information Performed by: [facility] [address] [place] [id number] Jessenia Bagley MD, PhD, TANNER Virus Index 2.94 High [facility] Comment on above: NOTE Performed by: [facility] [address] [place] [address] Jessenia Bagley MD, PhD, [facility] CNPNon 07-18-2024 CNPN Telephone (NEIND4) ESTELLA JEFFERY ([id number]) 1965 M Date Time Provider Department 07/18/24 NARCISO GUERRA NEIND4 During your visit today, we recorded the following information about you: Gaby Laboy 07/18/2024 9:22 AM Signed Patient returned your call and can be reached at: Call patient at: on cell [phone] (home) [phone] (cell) Abbey Amato MA 07/18/2024 11:23 AM Signed Patient mailbox is full unable to leave message Roger Holland, MARCI 07/19/2024 12:42 PM Signed Spoke with Dr Hramon (sp?) from [facility] regarding patient. Family is requesting transfer to a [facility] TBI center, inpatient. I advised that Dr Guerra cannot assist in this matter. Leana Roca, MARCI 07/20/2024 3:19 PM Addendum Spoke to , Kari. Pt is currently at [facility]. Pt is being denied an admit to rehab facility. I am unable to view notes from that hospital. Suggestion given to [facility] as [facility] does not have a TBI clinic. Family will have to work with staff at [facility]. Verbalized understanding. Allergies As of Date: 07/18/2024 (No Known Allergies) Date Reviewed: 10/12/2022 Reviewed by: Miguelito Chicas APRN.LEATHER COVERER - Fully Assessed Reason for Visit: Patient Question [2287] Prescriptions as of 07/20/2024 - donepezil (ARICEPT) [...] Status:Closed by LEANA ROCA on 07/20/24 Normal [facility] BASIC METABOLIC PANLon 07-17 Anion gap [Moles/Vol] 4 mmol/L Low 5-15 [facility] Comment on above: Performed By: #### C BC, BMP, , 2776-06, THYR #### [facility] ([id number]) [address], [address] [place] [address] Calcium [Mass/Vol] 8.8 mg/dL Normal 8.5-10.5 [facility] Comment on above: Performed By: #### C BC, BMP, , 2776-06, THYR #### [facility] ([id number]) [address], [address] [place] [address] Chloride [Moles/Vol] 104 mmol/L Normal 98-109 [facility] Comment on above: Performed By: #### C BC, BMP, , 2776-06, THYR #### [facility] ([id number]) [address], [address] [place] [address] CO2 [Moles/Vol] 33 mmol/L High 22-32 [facility] Comment on above: Performed By: #### C BC, BMP, , 2776-06, THYR #### [facility] ([id number]) [address], [address] [place] [address] Creatinine [Mass/Vol] 0.95 mg/dL Normal 0.60-1.30 [facility] Comment on above: Result Comment: METH OD TRACEABLE TO IDMS STANDARD Performed By: #### C BC, BMP, , 2776-06, THYR #### [facility] ([id number]) [address], [address] [place] [address] eGFR (CKD-EPI) NON-RACE DEPENDENT >90 Normal >59 [facility] Comment on above: Result Comment: Reported eGFR is based on the CKD-EPI 2020 equation that does not use a race coefficient. Performed By: #### Emily GAMA, BMP, , 2776-06, THYR #### [facility] ([id number]) [address], [address] [place] [address] Glucose [Mass/Vol] 97 mg/dL Normal 65-99 [facility] Comment on above: Performed By: #### Emily GAMA, BMP, , 2776-06, THYR #### [facility] ([id number]) [address], [address] [place] [address] Potassium [Moles/Vol] 4.3 mmol/L Normal 3.5-5.0 [facility] Comment on above: Performed By: #### Eimly GAMA, BMP, , 2776-06, THYR #### [facility] ([id number]) [address], [address] [place] [address] Sodium [Moles/Vol] 141 mmol/L Normal 134-146 [facility] Comment on above: Performed By: #### Emily GAMA, BMP, , 2776-06, THYR #### [facility] ([id number]) [address], [address] [place] [address] Urea nitrogen [Mass/Vol] 20 mg/dL Normal 5-23 [facility] Comment on above: Performed By: #### C NATAN, BMP, , 2776-06, THYR #### [facility] ([id number]) [address], [address] [place] [address] Basic Metabolic Panelon 06-21 Anion gap [Moles/Vol] 4 mmol/L Low 5 - 15 mmol/L [facility] Calcium [Mass/Vol] 8.8 mg/dL 8.5 - 10. 5 mg/dL [facility] Chloride [Moles/Vol] 104 mmol/L 98 - 10 9 mmol/L [facility] CO2 [Moles/Vol] 33 mmol/L High 22 - 32 mmol/L [facility] Creatinine [Mass/Vol] 0.95 mg/dL 0.60 - 1.30 mg/dL [facility] Comment on above: METHOD TRACEABLE TO IDVA STANDARD eGFR (CKD-EPI)non-race dependent - PINF [facility] Comment on above: Reported eGFR is based on the CKD-EPI 2020 equation that does not use a race coefficient. Glucose [Mass/Vol] 97 mg/dL 65 - 99 mg/dL [facility] Interpretation and review of laboratory results Abnormal [facility] Potassium [Moles/Vol] 4.3 mmol/L 3.5 - 5.0 mmol/L [facility] Sodium [Moles/Vol] 141 mmol/L 134 - 146 mmol/L [facility] Urea nitrogen [Mass/Vol] 20 mg/dL 5 - 23 mg/dL [facility] CBC AND AUTO DIFFon 07-17-19 25 ABSOLUTE BASOPHIL 0.0 X10E9/L Normal 0.0-0.2 [facility] Comment on above: Performed By: #### C DEE GAMA, 2776-06, THYR #### [facility] ([id number]) [address], [address] [place] [address] ABSOLUTE NEUTROPHIL 2.5 X10E9/L Normal 1.5-6.6 [facility] Comment on above: Performed By: #### C DEE GAMA, , 2776-06, THYR #### [facility] ([id number]) [address] [place] [address] Basophils/100 WBC (Bld) 0.6 % Normal [facility] Comment on above: Performed By: #### C DEE GAMA, , 2776-06, THYR #### [facility] ([id number]) [address], [address] [place] [address] Eosinophils (Bld) [#/Vol] 0.1 10*3/uL Normal 0.0-0.4 [facility] Comment on above: Performed By: #### C , [facility], , 2776-06, THYR #### [facility] ([id number]) [address] [place] [address] Eosinophils/100 WBC (Bld) 1.9 % Normal [facility] Comment on above: Performed By: #### C , [facility], , 2776-06, THYR #### [facility] ([id number]) [address] [place] [address] Erythrocyte distribution width (RBC) [Ratio] 15.8 % High 11.5-15.0 [facility] Comment on above: Performed By: #### C NATAN, [facility], , 2776-06, THYR #### [facility] ([id number]) [address], [facility] [address] [place] [address] Hematocrit (Bld) [Volume fraction] 41.8 % Normal 39-49 [facility] Comment on above: Performed By: #### C BC, [facility], , 2776-06, THYR #### [facility] ([id number]) [address] [place] [address] Hemoglobin (Bld) [Mass/Vol] 13.9 g/dL Normal 13.0-17.0 [facility] Comment on above: Performed By: #### C BC, [facility], , 2776-06, THYR #### [facility] ([id number]) [address], [address] [place] [address] Lymphocytes (Bld) [#/Vol] 1.2 10*3/uL Normal 1.0-3.5 [facility] Comment on above: Performed By: #### C NATAN, [facility], , 2776-06, THYR #### [facility] ([id number]) [address], [address] [place] [address] Lymphocytes/100 WBC (Bld) 29.7 % Normal [facility] Comment on above: Performed By: #### C NATAN, [facility], , 2776-06, THYR #### [facility] ([id number]) [address], [address] [place] [address] MCH (RBC) [Entitic mass] 25.1 pg Low 27-34 [facility] Comment on above: Performed By: #### Emily GAMA, [facility], , 2776-06, THYR #### [facility] ([id number]) [address], [address] [place] [address] MCHC (RBC) [Mass/Vol] 33.2 g/dL Normal 32-36 [facility] Comment on above: Performed By: #### Emily GAMA, [facility], , 2776-06, THYR #### [facility] ([id number]) [address], [address] [place] [address] MCV (RBC) [Entitic vol] 76 fL Low 80-100 [facility] Comment on above: Performed By: #### Emily GAMA, BMP, , 2776-06, THYR #### [facility] ([id number]) [address], [address] [place] [address] Monocytes (Bld) [#/Vol] 0.3 10*3/uL Normal 0-0.9 [facility] Comment on above: Performed By: #### Emily GAMA, BMP, , 2776-06, THYR #### [facility] ([id number]) [address], [address] [place] [address] Monocytes/100 WBC (Bld) 8.2 % Normal [facility] Comment on above: Performed By: #### C BC, BMP, , 2776-06, THYR #### [facility] ([id number]) [address], [address] [place] [address] Neutrophils/100 WBC (Bld) 59.6 % Normal [facility] Comment on above: Performed By: #### C NATAN, BMP, , 2776-06, THYR #### [facility] ([id number]) [address] [place] [address] Platelet mean volume (Bld) [Entitic vol] 7.7 fL Normal 7-12 [facility] Comment on above: Performed By: #### Emily BC, BMP, , 2776-06, THYR #### [facility] ([id number]) [address], [address] [place] [address] Platelets (Bld) [#/Vol] 180 10*3/uL Normal 150-450 [facility] Comment on above: Performed By: #### Emily BC, BMP, , 2776-06, THYR #### [facility] ([id number]) [address], [address] [place] [address] RBC COUNT 5.54 X10E12/L Normal 4.10-5.70 [facility] Comment on above: Performed By: #### C BC, BMP, , 2776-06, THYR #### [facility] ([id number]) [address], [address] [place] [address] WBC (Bld) [#/Vol] 4.1 10*3/uL Normal 4.0-11.0 [facility] Comment on above: Performed By: #### Emily BC, BMP, , 7-1, THYR #### [facility] ([id number]) [address] [place] [address] CBC auto differentialon 06-21 Basophils (Bld) [#/Vol] 0 10*3/uL [facility] Basophils/100 WBC (Bld) 0.6 % [facility] Eosinophils (Bld) [#/Vol] 0.1 10*3/uL [facility] Eosinophils/100 WBC (Bld) 1.9 % [facility] Erythrocyte distribution width (RBC) [Ratio] 15.8 % High 11.5 - 15.0 % [facility] Hematocrit (Bld) [Volume fraction] 41.8 % 39 - 49 % [facility] Hemoglobin (Bld) [Mass/Vol] 13.9 g/dL 13.0 - 17.0 g/dL [facility] Interpretation and review of laboratory results Abnormal [facility] Lymphocytes (Bld) [#/Vol] 1.2 10*3/uL [facility] Lymphocytes/100 WBC (Bld) 29.7 % [facility] MCH (RBC) [Entitic mass] 25.1 pg Low 27 - 34 pg [facility] MCHC (RBC) [Mass/Vol] 33.2 g/dL 32 - 3 6 g/dL [facility] MCV (RBC) [Entitic vol] 76 fL Low 80 - 100 fL [facility] Monocytes (Bld) [#/Vol] 0.3 10*3/uL [facility] Monocytes/100 WBC (Bld) 8.2 % [facility] Neutrophils (Bld) [#/Vol] 2.5 10*3/uL [facility] Neutrophils/100 WBC (Bld) 59.6 % [facility] Platelet mean volume (Bld) [Entitic vol] 7.7 fL 7 - 12 fL [facility] Platelets (Bld) [#/Vol] 180 10*3/uL [facility] RBC (Bld) [#/Vol] 5.54 10*6/uL [facility] WBC corrected for nucl RBC Auto (Bld) [#/Vol] 4.1 [facility] Marjorie 07-17-2024 CNPN Telephone (NEIND4) ESTELLA JEFFERY ([id number]) 1965 M Date Time Provider Department 07/17/24 NARCISO GUERRA NEIND4 During your visit today, we recorded the following information about you: Gaby Laboy 07/17/2024 2:37 PM Signed Pt keila and is in [facility] and is requesting help with getting pt transferred to a [facility] facility Please call pts [phone] Roger Holland RN 07/18/2024 8:58 AM Signed -LVMTCB We are unable to assist in this matter. Pt last seen 04/2022 Allergies As of Date: 07/17/2024 (No Known Allergies) Date Reviewed: 10/12/2022 Reviewed by: Miguelito Chicas APRN.LEATHER COVERER - Fully Assessed Reason for Visit: Patient Question [1457] Prescriptions as of 07/18/2024 - donepezil (ARICEPT) [...] Status:Closed by ROGER HOLLAND on 07/18/24 [facility] Encephalopathy - Autoimmune Eval, RUSSELLon 07-17-2024 Encephalopathy autoimmune Ab panel (CSF) SEE COMMENTS 07/17/2024 05:00 PM [employer] Comment on above: NOTE Test Result Flag [...] developed and its performance characteristics determined by [facility] in a manner consistent with CLIA requirements. This test has not been cleared or approved by the U.S. Food and Drug Administration. Amphiphysin Ab, CSF Negative Negative ADDITIONAL INFORMATION This test was developed and its performance characteristics determined by [facility] in a manner consistent with CLIA requirements. This test has not been cleared or approved by the U.S. Food and Drug Administration. AGNA-1, CSF Negative Negative ADDITIONAL INFORMATION This test was developed and its performance characteristics determined by [facility] in a manner consistent with CLIA requirements. This test has not been cleared or approved by the U.S. Food and Drug Administration. MARKEL-1, CSF Negative Negative ADDITIONAL INFORMATION This test was developed and its performance characteristics determined by [facility] in a manner consistent with CLIA requirements. This test has not been cleared or approved by the U.S. Food and Drug Administration. MARKEL-2, CSF Negative Negative ADDITIONAL INFORMATION This test was developed and its performance characteristics determined by [facility] in a manner consistent with CLIA requirements. This test has not been cleared or approved by the U.S. Food and Drug Administration. MARKEL-3, CSF Negative Negative ADDITIONAL INFORMATION This test was developed and its performance characteristics determined by [facility] in a manner consistent with CLIA requirements. This test has not been cleared or approved by the U.S. Food and Drug Administration. CASPR2-IgG CBA, CSF Negative Negative ADDITIONAL INFORMATION This test was developed and its performance characteristics determined by [facility] in a manner consistent with CLIA requirements. This test has not been cleared or approved by the U.S. Food and Drug Administration. CRMP-5-IgG, CSF Negative Negative ADDITIONAL INFORMATION This test was developed and its performance characteristics determined by [facility] in a manner consistent with CLIA requirements. This test has not been cleared or approved by the U.S. Food and Drug Administration. DPPX Ab CBA, CSF Negative Negative ADDITIONAL INFORMATION This test was developed and its performance characteristics determined by [facility] in a manner consistent with CLIA requirements. This test has not been cleared or approved by the U.S. Food and Drug Administration. NICOLE-B-R Ab CBA, CSF Negative Negative ADDITIONAL INFORMATION This test was developed and its performance characteristics determined by [facility] in a manner consistent with CLIA requirements. This test has not been cleared or approved by the U.S. Food and Drug Administration. GAD65 Ab Assay, CSF 0.00 nmol/L <= 0.02 ADDITIONAL INFORMATION This test was developed and its performance characteristics determined by [facility] in a manner consistent with CLIA requirements. This test has not been cleared or approved by the U.S. Food and Drug Administration. GFAP IFA, CSF Negative Negative ADDITIONAL INFORMATION This test was developed and its performance characteristics determined by [facility] in a manner consistent with CLIA requirements. This test has not been cleared or approved by the U.S. Food and Drug Administration. mGluR1 Ab IFA, CSF (more content not included)... Encephalopathy autoimmune Ab panel (CSF)on 07-17-2024 [facility] MAGNESIUMon 07-17-2024 Magnesium [Mass/Vol] 2.2 mg/dL Normal 1.8-2.6 [facility] Comment on above: Performed By: #### C BC, BMP, 20391-4, 2777-1, THYR #### [facility] ([id number]) [address] [place] [address], [address] [place] [address] Magnesiumon 07-17-2024 Magnesium [Mass/Vol] 2.2 mg/dL 1.8 - 2 .6 mg/dL [facility] No Panel Informationon 07-17 [facility] Bacteria identified Cx Nom ( CSF)on 07-15-2024 Microscopic observation Gram stain Nom (Unsp spec) WHITE BLOOD CELLS PRESENT [facility] Microscopic observation Gram stain Nom (Unsp spec) NO ORGANISMS SEEN [facility] Microscopic observation Gram stain Nom (Unsp spec) ON CONCENTRATED SMEAR [facility] Service comment (Unsp spec) [Interp] NO GROWTH 5 DAYS [facility] Flow Cytometry CSFon 025 Flow cytometry specialist review Ramone (Unsp spec) [Interp] SEE SEPARATE REPORT, REVIEWED BY PATHOLOGIST [facility] Flow cytometry specialist re view Ramone (Unsp spec) [Interp]on 2024 [facility] Lyme GAME PROGRAMER Infection IgG w/ An tibody Index Reflex, CSF and Serumon 07-13-2024 Pathologist interpretation (Bld) [Interp] See Note [facility] Comment on above: NOTE No antibodies [...] developed and its performance characteristics determined by [facility] in a manner consistent with CLIA requirements. This test has not been cleared or approved by the U.S. Food and Drug Administration. Reference Lab Test ID Negative Negative [facility] Reference Lab Test ID See Note [facility] Comment on above: NOTE CSF screen was negative for IgG-class antibodies to Lyme Borrelia species. Testing for IgG-class antibodies to Borrelia in serum is not indicated and was not performed. Test Performed by: [facility] [place] [address] Manager Relocation: Eduardo Clark Ph.D.; CLIA# [id number] [facility] Cytologyon 07-11-2024 [facility] [address] [place] [address] Cytology Consultation Patient Name:ESTELLA JEFFERYChong:1965 (Age: 58)Gender:MTaken:06/21Reported:2024 16:49Physician(s):Shun Haley M.D. ([phone])Copy To:Quinton Harrell M.D. Rec. #:[id number]: #[id number] Final Cytologic Diagnosis Cerebrospinal fluid: No malignant cells identified. gr/07/11/2024 Interpretation performed at [facility], [address] [place] [address], License number: [id number].Electro nically Signed Out By Derick Lorenz MD Additional Report(s): Flow Cytometry-Surg/BM/NG Date Reported: 07/13/2024 No flow cytometric abnormalities. The specimen is hypocellular with a sparse lymphoid component. Immunophenotypic analysis of the lymphoid cells demonstrates a mixed population of few phenotypically unremarkable T-cells and polyclonal B-cells. No monoclonal lymphoid population is detected. Immunophenotyping antibodies tested: CD3, CD4, CD5, CD7, CD8, CD19, CD20, CD45, Murtaugh, and Lambda. Immunophenotyping Comment: Immunophenotyping has been used in this diagnostic evaluation. This test was developed and its performance characteristics determined by the [facility]. It has not been [...] perform high-complexity clinical testing. Interpretation performed at [facility], [address] [place] [address], License number: [id number]. 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 Also received is one cytospin slide from Hematology. Source of Specimen Cerebrospinal fluid Non MANAGER OF SUSTAINABILITY ThinPrep, Cytospin Slide Fee Code(s): 1; 56318, 11487 COPATH [employer] [facility] IgG synthesis rate Calc (S+C SF) [Mass/Time]on 07-11-2024 CSF IgG Index Profile SEE COMMENTS 07/11/2024 12:55 PM [employer] Comment on above: NOTE Test Result Flag [...] Test Performed by: [facility] [address] [place] [address] Manager Relocation: Eduardo Clark Ph.D.; CLIA# [id number] Test Performed by: [facility] [address] [place] [address] Manager Relocation: Eduardo Clark Ph.D.; CLIA# [id number] [employer] [facility] Reagin Ab VDRL Ql (CSF)on [facility] VDRL, Spinal Fluidon 025 Reagin Ab VDRL Ql (CSF) Negative Negative [employer] Comment on above: NOTE Test Performed by: [facility] [address] [place] [address] Manager Relocation: Eduardo Clark Ph.D.; CLIA# [id number] 14-3-3 Protein Tau, Total, C SFon 07-10-2024 Creutzfeldt-Osei Disease SEE NOTE Normal [facility] Comment on above: Result Comment: NOTE [...] examination of autopsy brain tissue. The [facility] is able to offer a no-cost autopsy for this patient. Autopsy can help to delineate whether prion disease is sporadic, acquired or genetic in etiology. [facility] staff ([phone]) are available to work with healthcare providers and the patient's family to plan an autopsy, if desired. Reviewed and Approved By: Tia Weinberg, PhD Performed By: [facility] [address] [facility] Room [address] [place] [address] Performed By: #### C DEE GAMA, , 2776-06, THYR #### [facility] ([id number]) [address] [place] [address], [address] [place] [address] CSF CULTUREon 07-10-2024 Bacteria identified Cx Nom (CSF) GRAM STAIN WHITE BLOOD CELLS PRESENT NO ORGANISMS SEEN ON CONCENTRATED SMEAR CULTURE RESULTS NO GROWTH 5 DAYS Normal [facility] Comment on above: Performed By: #### C DEE GAMA, , 2777-1, THYR #### [facility] ([id number]) [address] [place] [address], [address] [place] [address] CSF spinal fluid cell counto 07-10-2024 Clarity (CSF) CLEAR [facility] Color (CSF) COLORLESS [facility] Color (Spun CSF) COLORLESS [facility] Differential panel (Dial fld) NUCLEATED CELLS <5/uL; DIFF NOT TESTED [facility] [employer] Interpretation and review of laboratory results Abnormal [facility] Laboratory comment Ramone (Report) TUBE 3 [facility] Nucleated cells Manual cnt (CSF) [#/Vol] 0.001 10*3/uL 0 - 5 /uL [facility] RBC Manual cnt (CSF) [#/Vol] 48 /uL High 0 - 1 /uL [facility] Csf total proteinon 07-10-19 25 Protein (CSF) [Mass/Vol] 45 mg/dL 15 - 45 mg/dL [facility] [employer] Cytologyon 07-10-2024 Cytology Normal [facility] Comment on above: Result Comment: [facility] [employer] [facility] [address] [place] [address] Cytology Consultation Patient Name:ESTELLA JEFFERY:1965 (Age: 58)Gender:MTaken:07/10/2024Reported:07/11/2024 16:49Physician(s):Arnulfo Haley M.D. ([phone])Copy To:Quinton Harrell M.D. Rec. #:[id number]: #[id number] Final Cytologic Diagnosis Cerebrospinal fluid: No malignant cells identified. gr07/11/2024 [place] [address], License number: [id number].Electronically Signed Out By Derick Lorenz MD Additional Report(s): Flow Cytometry-Surg/BM/NG Date Reported: 07/13/2024 No flow cytometric abnormalities. The specimen is hypocellular with a sparse lymphoid component. Immunophenotypic analysis of the lymphoid cells demonstrates a mixed population of few phenotypically unremarkable T-cells and polyclonal B-cells. No monoclonal lymphoid population is detected. Immunophenotyping antibodies tested: CD3, CD4, CD5, CD7, CD8, CD19, CD20, CD45, Murtaugh, and Lambda. Immunophenotyping Comment: Immunophenotyping has been used in this diagnostic evaluation. This test was developed and its performance characteristics determined by the [facility]. It has not been [...] perform high-complexity clinical testing. Interpretation performed at [facility], [address] [place] [address], License number: [id number]. 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 Also received is one cytospin slide from Hematology. Source of Specimen Cerebrospinal fluid Non MANAGER OF SUSTAINABILITY ThinPrep, Cytospin Slide Fee Code(s): 1; 43259, 60083 Encephalopathy autoimmune Ab panel (CSF)on 07-10-2024 ENCEPHALOPATHY-AUTOIM MUNE EVAL - CSF SEE COMMENTS 07/17/2024 05:00 PM Normal [facility] Comment on above: Result Comment: NOTE [...] developed and its performance characteristics determined by [facility] in a manner consistent with CLIA requirements. This test has not been cleared or approved by the U.S. Food and Drug Administration. Amphiphysin Ab, CSF Negative Negative ADDITIONAL INFORMATION This test was developed and its performance characteristics determined by [facility] in a manner consistent with CLIA requirements. This test has not been cleared or approved by the U.S. Food and Drug Administration. AGNA-1, CSF Negative Negative ADDITIONAL INFORMATION This test was developed and its performance characteristics determined by [facility] in a manner consistent with CLIA requirements. This test has not been cleared or approved by the U.S. Food and Drug Administration. MARKEL-1, CSF Negative Negative ADDITIONAL INFORMATION This test was developed and its performance characteristics determined by [facility] in a manner consistent with CLIA requirements. This test has not been cleared or approved by the U.S. Food and Drug Administration. MARKEL-2, CSF Negative Negative ADDITIONAL INFORMATION This test was developed and its performance characteristics determined by [facility] in a manner consistent with CLIA requirements. This test has not been cleared or approved by the U.S. Food and Drug Administration. MARKEL-3, CSF Negative Negative ADDITIONAL INFORMATION This test was developed and its performance characteristics determined by [facility] in a manner consistent with CLIA requirements. This test has not been cleared or approved by the U.S. Food and Drug Administration. CASPR2-IgG CBA, CSF Negative Negative ADDITIONAL INFORMATION This test was developed and its performance characteristics determined by [facility] in a manner consistent with CLIA requirements. This test has not been cleared or approved by the U.S. Food and Drug Administration. CRMP-5-IgG, CSF Negative Negative ADDITIONAL INFORMATION This test was developed and its performance characteristics determined by [facility] in a manner consistent with CLIA requirements. This test has not been cleared or approved by the U.S. Food and Drug Administration. DPPX Ab CBA, CSF Negative Negative ADDITIONAL INFORMATION This test was developed and its performance characteristics determined by [facility] in a manner consistent with CLIA requirements. This test has not been cleared or approved by the U.S. Food and Drug Administration. NICOLE-B-R Ab CBA, CSF Negative Negative ADDITIONAL INFORMATION This test was developed and its performance characteristics determined by [facility] in a manner consistent with CLIA requirements. This test has not been cleared or approved by the U.S. Food and Drug Administration. GAD65 Ab Assay, CSF 0.00 nmol/L <= 0.02 ADDITIONAL INFORMATION This test was developed and its performance characteristics determined by [facility] in a manner consistent with CLIA requirements. This test has not been cleared or approved by the U.S. Food and Drug Administration. GFAP IFA, CSF Negative Negative ADDITIONAL INFORMATION This test was developed and its performance characteristics determined by [facility] in a manner consistent with CLIA requirements. This test has not been cleared or approved by the U.S. Food and Drug Administration. mGluR1 Ab IFA, CSF Negative Negative ADDITIONAL INFORMATION This test was developed and its performance characteristics determined by [facility] in a manner consistent with CLIA requirements. This test has not been cleared or approved by the U.S. Food and Drug Administration. IgLON5 CBA, CSF Negative Negative ADDITIONAL INFORMATION This test was developed and its performance characteristics determined by [facility] in a manner consistent with CLIA requirements. This test has not been cleared or approve (more content not included)... Performed By: #### C DEE GAMA, , 2776-06, THYR #### [facility] ([id number]) [address], [address] [place] [address] Flow cytometry specialist re view Ramone (Unsp spec) [Interp]on 07-10-2024 FLOW CYTOMETRY CSF SEE SEPARATE REPORT, REVIEWED BY PATHOLOGIST Dat [facility] Comment on above: Performed By: #### DEE MOORE, , 2776-06, THYR #### [facility] ([id number]) [address], [address] [place] [address] Glucose (CSF) [Mass/Vol]on 07-10-2024 CSF GLUCOSE 66 mg/dL Normal 40-70 [facility] Comment on above: Performed By: #### C BC, BMP, 99007-0, 2777-1, THYR #### [facility] ([id number]) [address] [facility], [address] [place] [address] Glucose, CSFon 07-10-2024 Glucose (CSF) [Mass/Vol] 66 mg/dL 40 - 70 mg/dL [facility] LYME GAME PROGRAMER Infection IgG w/ An tibody Index Reflex, CSF and Serumon 07-10-2024 LYME GAME PROGRAMER IGG INTERP. See Note Normal [facility] Comment on above: Result Comment: NOTE No [...] developed and its performance characteristics determined by [facility] in a manner consistent with CLIA requirements. This test has not been cleared or approved by the U.S. Food and Drug Administration. LYME GAME PROGRAMER IGG, CSF Negative Normal Negative [facility] LYME GAME PROGRAMER IGG, SERUM See Note Normal [facility] Comment on above: Result Comment: NOTE CSF screen was negative for IgG-class antibodies to Lyme Borrelia species. Testing for IgG-class antibodies to Borrelia in serum is not indicated and was not performed. Test Performed by: [facility] [address] [place] [address] Manager Relocation: Eduardo Clark Ph.D.; CLIA# [id number] Lumbar Punctureon 07-10-2024 Arnulfo Haley MD 07/10/2024 [...] to verify the correct patient, procedure, equipment, field support representative and site/side marked as required. Anesthesia: local infiltration Anesthesia: Local Anesthetic: lidocaine 1% without epinephrine Sedation: Patient sedated: yes Lumbar space: L3-L4 interspace Patient's position: left lateral decubitus Opening pressure: 12 cm H2O Fluid appearance: clear Tubes of fluid: 4 Total volume: 17.5 ml Post-procedure: pressure dressing applied and adhesive bandage applied Procedure was completed Complications: none MANUALLY TRANSCRIBED RESULTS [facility] MENINGITIS PANELon 5 Meningitis+Encephalit is pathogens [...] NEOFORMANS Not detected (qualifier value) Normal NDET [facility] Comment on above: Performed By: #### C , [facility], [address]015-0, 2777-1, THYR #### [facility] ([id number]) [address] [place] [address] MR BRAIN W WO CONTon 025 MR BRAIN W WO CONT MR BRAIN W WO CONT STUDY: MRI brain with without contrast . CLINICAL HISTORY: Mental status change, unknown cause COMPARISON: July 03, 2024 brain MRI from [facility] Procedure: Multiplanar, multisequence imaging performed through the [...] and cranio-cervical junction. Flow voids documented in [place] and dural venous sinuses. No [...] Lu MD on 07/10/2024 11:31 AM Normal [facility] MR Brain WO and W contrast I Von 07-10-2024 STUDY: MRI brain with without contrast . CLINICAL HISTORY: Mental status change, unknown cause COMPARISON: July 03, 2024 brain MRI from [facility] Procedure: Multiplanar, multisequence imaging performed through the [...] and cranio-cervical junction. Flow voids documented in [place] and dural venous sinuses. No [...] Wilson Lu MD on 07/10/2024 11:31 AM SECTRAPACS Wilson Lu MD - 07/10/2024 STUDY: MRI brain with without contrast . CLINICAL HISTORY: Mental status change, unknown cause COMPARISON: July 03, 2024 brain MRI from [facility] Procedure: Multiplanar, multisequence imaging performed through the [...] and cranio-cervical junction. Flow voids documented in [place] and dural venous sinuses. No [...] Wilson Lu MD on 07/10/2024 11:31 AM [facility] Radiology Study observation (narrative) [facility] MR Brain WO and W contrast I VOrdered By: Wilson Lu on 07-10-[address] [facility] Work Phone: Meningitis+Encephalitis path ogens DNA and RNA panel LILLIANA+non-probe (CSF)on 07-10-2024 C. gattii+neoformans DNA LILLIANA+non-probe Ql (CSF) Not detected Not Detected^No t Detected [facility] CMV DNA LILLIANA+non-probe Ql (CSF) Not detected Not Detected^No t Detected [facility] E. coli K1 DNA LILLIANA+non-probe Ql (CSF) Not detected Not Detected^No t Detected [facility] Enterovirus RNA LILLIANA+non-probe Ql (CSF) Not detected Not Detected^No t Detected [facility] H. influenzae DNA LILLIANA+non-probe Ql (CSF) Not detected Not Detected^No t Detected [facility] HHV 6 DNA LILLIANA+non-probe Ql (CSF) Not detected Not Detected^No t Detected [facility] HSV 1 DNA LILLIANA+non-probe Ql (CSF) Not detected Not Detected^No t Detected [facility] HSV 2 DNA LILLIANA+non-probe Ql (CSF) Not detected Not Detected^No t Detected [facility] L. monocytogenes DNA LILLIANA+non-probe Ql (CSF) Not detected Not Detected^No t Detected [facility] N. meningitidis DNA LILLIANA+non-probe Ql (CSF) Not detected Not Detected^No t Detected [facility] Parechovirus A RNA LILLIANA+non-probe Ql (CSF) Not detected Not Detected^No t Detected [facility] S. agalactiae DNA LILLIANA+non-probe Ql (CSF) Not detected Not Detected^No t Detected [facility] S. pneumoniae DNA LILLIANA+non-probe Ql (CSF) Not detected Not Detected^No t Detected [facility] Specimen source Nom (Body fld) CEREBROSPINAL FLUID [facility] VZV DNA LILLIANA+non-probe Ql (CSF) Not detected Not Detected^No t Detected [facility] No Panel Informationon 07-10 [facility] Protein (CSF) [Mass/Vol]on 0 07-10-2024 CSF TOTAL PROTEIN 45 mg/dL Normal 15-45 [facility] Comment on above: Performed By: #### C BC, BMP, 17314-3, 2777-1, THYR #### [facility] ([id number]) [address], [address] [place] [address] Reagin Ab VDRL Ql (CSF)on VDRL, Spinal Fluid Negative Normal Negative [facility] Comment on above: Result Comment: NOTE Test Performed by: [facility] [address] [place] [address] Manager Relocation: Eduardo Clark Ph.D.; CLIA# [id number] Performed By: #### C BC, BMP, 22492-5, 2777-1, THYR #### [facility] ([id number]) [address], [address] [place] [address] SPINAL FLUID CELL CTon 07-10 CSF CLARITY CLEAR Normal [facility] Comment on above: Performed By: #### C BC, BMP, 75794-9, 2777-1, THYR #### [facility] ([id number]) [address], [address] [place] [address] CSF COLOR COLORLESS Normal [facility] Comment on above: Performed By: #### C BC, BMP, 17970-1, 2777-1, THYR #### [facility] ([id number]) [address], [address] [place] [address] CSF COMMENT TUBE 3 Normal [facility] Comment on above: Performed By: #### C BC, BMP, 27278-1, 2777-1, THYR #### [facility] ([id number]) [address], [address] [place] [address] CSF NUCLEATED CELLS 1 /uL Normal 0-5 [facility] Comment on above: Performed By: #### C BC, BMP, 36678-9, 2777-1, THYR #### [facility] ([id number]) [address], [address] [place] [address] CSF RBC 48 /uL High 0-1 [facility] Comment on above: Performed By: #### C BC, BMP, 29540-5, 2777-1, THYR #### [facility] ([id number]) [address], [address] [place] [address] CSF SUPERNATANT COLORLESS Normal [facility] Comment on above: Performed By: #### C BC, BMP, 26769-2, 2776-, THYR #### [facility] ([id number]) [address], [address] [place] [address] SF DIFF NUCLEATED CELLS <5/uL; DIFF NOT TESTED Normal [facility] Comment on above: Performed By: #### C BC, BMP, , 2776-, THYR #### [facility] ([id number]) [address], [address] [place] [address] B. burgdorferi IgG+IgM Qn (S )on 07-09-2024 [facility] ECG 12 leadon 07-09-2024 TRACEMASTERVUE [facility] IgG synthesis rate Calc (S+C SF) [Mass/Time]on 07-09-2024 CSF IgG Index Profile SEE COMMENTS 07/11/2024 12:55 PM Normal [facility] Comment on above: Result Comment: NOTE [...] Test Performed by: [facility] [address] [place] [address] Manager Relocation: Eduardo Clark Ph.D.; CLIA# [id number] Test Performed by: [address] [address] Manager Relocation: Eduardo Clark Ph.D.; CLIA# [id number] TANNER Virus Antibody W/Reflexon 07-09-2024 TANNER Virus Antibody Positive Abnormal [facility] Comment on above: Result Comment: NOTE [...] index.(1) (1) TYSABRI(natalizumab)US Prescribing Information Performed by: [facility] [id number] [place] [id number] Jessenia Bagley MD, PhD, TANNER Virus Index 2.94 High [facility] Comment on above: Result Comment: NOTE Performed by: [facility] [address] [place] [address] Jessenia Bagley MD, PhD, Laboratory comment Ramone (Repo rt)on 07-09-2024 [facility] UNLISTED LAB TEST Sent to reference lab Normal [facility] Lyme Totalon 07-09-2024 B. burgdorferi IgG+IgM Qn (S) A1 NINF - 0.9 A1 [facility] Comment on above: Interpretation-------- <0.9 Negative [...] (PPP) [Relative time] 1.1 {INR} Normal 0.8-1.1 [facility] Comment on above: Performed By: #### Emily GAMA, [facility], , 2776-06, THYR #### [facility] ([id number]) [address] [place] [address] PT Coag (PPP) [Time] 12.4 s Normal 9.8-13.2 [facility] Comment on above: Performed By: #### Emily GAMA, [facility], , 2776-06, THYR #### [facility] ([id number]) [address], [address] [place] [address] Protime & INRon 07-09-2024 INR Coag (PPP) [Relative time] 1.1 {INR} [facility] PT Coag (PPP) [Time] 12.4 s [facility] Syphilis Total(Unknown Syphi lis Status)on 07-09-2024 T. pallidum IgG+IgM IA Ql (S) [facility] Comment on above: NON REACTIVE No serologic evidence of infection to Treponema pallidum (syphilis). Repeat testing may be considered in patients with suspected acute or primary syphilis in 2 to 4 weeks. T. pallidum IgG+IgM IA Ql (S )on 07-09-2024 [facility] Unlisted Lab Test TANNER viruson 07-09-2024 Laboratory comment Ramone (Report) Sent to reference lab [facility] AMMONIAon 07-08-2024 Ammonia (P) [Moles/Vol] 40 umol/L Normal 18-72 [facility] Comment on above: Result Comment: SPEC IMEN HEMOLYZED, RESULTS INCREASED SLIGHTLY HEMOLYZED NEW REFERENCE RANGE Performed By: #### C NATAN, BMP, , 2776-06, THYR #### [facility] ([id number]) [address], [address] [place] [address] Ammoniaon 07-08-2024 Ammonia (P) [Moles/Vol] 40 umol/L 18 - 72 umol/L [facility] Comment on above: SPECIMEN HEMOLYZED, RESULTS INCREASED SLIGHTLY HEMOLYZED NEW REFERENCE RANGE Ammonia (P) [Moles/Vol]on [facility] BASIC METABOLIC PANLon 07-08 Anion gap [Moles/Vol] 6 mmol/L Normal 5-15 [facility] Comment on above: Performed By: #### C NATAN, BMP, , 2776-06, THYR #### [facility] ([id number]) [address], [address] [place] [address] Calcium [Mass/Vol] 8.3 mg/dL Low 8.5-10.5 [facility] Comment on above: Performed By: #### Emily GAMA, BMP, , 2776-06, THYR #### [facility] ([id number]) [address], [address] [place] [address] Chloride [Moles/Vol] 107 mmol/L Normal 98-109 [facility] Comment on above: Performed By: #### C NATAN, BMP, , 2776-06, THYR #### [facility] ([id number]) [address], [address] [place] [address] CO2 [Moles/Vol] 29 mmol/L Normal 22-32 [facility] Comment on above: Performed By: #### C BC, BMP, , 2776-06, THYR #### [facility] ([id number]) [address], [address] [place] [address] Creatinine [Mass/Vol] 0.91 mg/dL Normal 0.60-1.30 [facility] Comment on above: Result Comment: METH OD TRACEABLE TO IDMS STANDARD Performed By: #### C NATAN, BMP, , 2776-06, THYR #### [facility] ([id number]) [address], [address] [place] [address] eGFR (CKD-EPI) NON-RACE DEPENDENT >90 Normal >59 [facility] Comment on above: Result Comment: Reported eGFR is based on the CKD-EPI 2020 equation that does not use a race coefficient. Performed By: #### C BC, BMP, , 2776-06, THYR #### [facility] ([id number]) [address] [place] [address] Glucose [Mass/Vol] 91 mg/dL Normal 65-99 [facility] Comment on above: Performed By: #### C NATAN, [facility], , 2776-06, THYR #### [facility] ([id number]) [address] [place] [address] Potassium [Moles/Vol] 4.1 mmol/L Normal 3.5-5.0 [facility] Comment on above: Performed By: #### C BC, BMP, , 2776-06, THYR #### [facility] ([id number]) [address] [place] [address] Sodium [Moles/Vol] 142 mmol/L Normal 134-146 [facility] Comment on above: Performed By: #### C BC, BMP, , 2776-06, THYR #### [facility] ([id number]) [address] [facility] [place] [address] Urea nitrogen [Mass/Vol] 22 mg/dL Normal 5-23 [facility] Comment on above: Performed By: #### C BC, [facility], 11594-9, 2777-1, THYR #### [facility] ([id number]) [address] [place] [address] Basic Metabolic Panelon 06-20 Anion gap [Moles/Vol] 6 mmol/L 5 - 15 mmol/L [facility] Calcium [Mass/Vol] 8.3 mg/dL Low 8.5 - 10. 5 mg/dL [facility] Chloride [Moles/Vol] 107 mmol/L 98 - 10 9 mmol/L [facility] CO2 [Moles/Vol] 29 mmol/L 22 - 32 mmol/L [facility] Creatinine [Mass/Vol] 0.91 mg/dL 0.60 - 1.30 mg/dL [facility] Comment on above: METHOD TRACEABLE TO IDVA STANDARD eGFR (CKD-EPI)non-race dependent - PINF [facility] Comment on above: Reported eGFR is based on the CKD-EPI 2020 equation that does not use a race coefficient. Glucose [Mass/Vol] 91 mg/dL 65 - 99 mg/dL [facility] Interpretation and review of laboratory results Abnormal [facility] Potassium [Moles/Vol] 4.1 mmol/L 3.5 - 5.0 mmol/L [facility] Sodium [Moles/Vol] 142 mmol/L 134 - 146 mmol/L [facility] Urea nitrogen [Mass/Vol] 22 mg/dL 5 - 23 mg/dL [facility] CBC without diffon Erythrocyte distribution width (RBC) [Ratio] 15.6 % High 11.5 - 15.0 % [facility] Hematocrit (Bld) [Volume fraction] 39.1 % 39 - 49 % [facility] Hemoglobin (Bld) [Mass/Vol] 12.7 g/dL Low 13.0 - 17.0 g/dL [facility] Interpretation and review of laboratory results Abnormal [facility] MCH (RBC) [Entitic mass] 24.5 pg Low 27 - 34 pg [facility] MCHC (RBC) [Mass/Vol] 32.5 g/dL 32 - 3 6 g/dL [facility] MCV (RBC) [Entitic vol] 75 fL Low 80 - 100 fL [facility] Platelet mean volume (Bld) [Entitic vol] 8.6 fL 7 - 12 fL [facility] Platelets (Bld) [#/Vol] 154 10*3/uL [facility] RBC (Bld) [#/Vol] 5.19 10*6/uL [facility] WBC corrected for nucl RBC Auto (Bld) [#/Vol] 4.1 [facility] COMPLETE BLOOD COUNTon 07-08 Erythrocyte distribution width (RBC) [Ratio] 15.6 % High 11.5-15.0 [facility] Comment on above: Performed By: #### DEE MOORE, , 2776-06, THYR #### [facility] ([id number]) [address], [address] [place] [address] Hematocrit (Bld) [Volume fraction] 39.1 % Normal 39-49 [facility] Comment on above: Performed By: #### DEE MOORE, , 2776-06, THYR #### [facility] ([id number]) [address], [address] [place] [address] Hemoglobin (Bld) [Mass/Vol] 12.7 g/dL Low 13.0-17.0 [facility] Comment on above: Performed By: #### Emily GAMA BMP, , 2776-06, THYR #### [facility] ([id number]) [address], [address] [place] [address] MCH (RBC) [Entitic mass] 24.5 pg Low 27-34 [facility] Comment on above: Performed By: #### Emily GAMA, BMP, , 2776-06, THYR #### [facility] ([id number]) [address], [address] [place] [address] MCHC (RBC) [Mass/Vol] 32.5 g/dL Normal 32-36 [facility] Comment on above: Performed By: #### C NATAN, BMP, , 2776-06, THYR #### [facility] ([id number]) [address], [address] [place] [address] MCV (RBC) [Entitic vol] 75 fL Low 80-100 [facility] Comment on above: Performed By: #### C NATAN, BMP, , 2776-06, THYR #### [facility] ([id number]) [address], [address] [place] [address] Platelet mean volume (Bld) [Entitic vol] 8.6 fL Normal 7-12 [facility] Comment on above: Performed By: #### Emily GAMA, BMP, , 2776-06, THYR #### [facility] ([id number]) [address], [address] [place] [address] Platelets (Bld) [#/Vol] 154 10*3/uL Normal 150-450 [facility] Comment on above: Performed By: #### Emily GAMA BMP, , 2776-06, THYR #### [facility] ([id number]) [address], [address] [place] [address] RBC COUNT 5.19 X10E12/L Normal 4.10-5.70 [facility] Comment on above: Performed By: #### C NATAN, BMP, , 2776-06, THYR #### [facility] ([id number]) [address], [address] [place] [address] WBC (Bld) [#/Vol] 4.1 10*3/uL Normal 4.0-11.0 [facility] Comment on above: Performed By: #### C , BMP, 10177-1, 2777-1, THYR #### [facility] ([id number]) [address] [place] [address] Cobalamin (Vitamin B12) [Mas s/Vol]on 07-08-2024 [facility] EEGon 07-08-2024 Images from the original [...] MD, PhD Neurology/Clinical Neurophysiology MANUALLY TRANSCRIBED RESULTS [facility] Folateon 07-08-2024 Folate [Mass/Vol] 10.2 ng/mL 5.8 - PINF ng/mL [facility] Comment on above: NEW REFERENCE RANGE Folate [Mass/Vol]on 07-08-19 25 [facility] FOLIC ACID 10.2 ng/mL Normal >5.8 [facility] Comment on above: Result Comment: NEW REFERENCE RANGE Performed By: #### C NATAN, DEE, 03466-7, 2777-, THYR #### [facility] ([id number]) [address] [place] [address], [address] [place] [address] HIV 1&2 AB/AG Screen (P24 AG )on 07-08-2024 HIV 1+2 Ab+HIV1 p24 Ag IA Ql Non-Reactive Non-Reactiv e^Non-React deirdre [facility] Comment on above: NEW TEST METHOD [...] Ab+HIV1 p24 Ag IA Ql on 07-08-2024 [facility] HIV 1 and 2 Ab/Ag Screen Non-Reactive Normal NRCT [facility] Comment on above: Result Comment: NEW [...] test results or diagnoses. Performed By: #### C BC, BMP, 69255-6, 2777-1, THYR #### [facility] ([id number]) [address], [address] [place] [address] VITAMIN B12on 07-08-2024 Cobalamin (Vitamin B12) [Mass/Vol] 526 pg/mL Normal 180-914 [facility] Comment on above: Performed By: #### DEE MOORE, 18754-5, 2777-1, THYR #### [facility] ([id number]) [address], [address] [place] [address] Vitamin B12on 07-08-2024 Cobalamin (Vitamin B12) [Mass/Vol] 526 pg/mL 180 - 914 pg/mL [facility] B. burgdorferi IgG+IgM Qn (S )on 07-07-2024 LYME TOTAL <0.2 Normal <0.9 [facility] Comment on above: Result Comment: Interpretation-------- <0.9 Negative 0.9 - 1.0 Equivocal >1.0 Positive No serological evidence of Borrelia infection.A non-reactive result does not exclude the possibility of Borrelia infection and cannot exclude early infection with B.burgdorferi. If Lyme borreliosis is suspected, a second sample should be collected and tested 2-4 weeks later. Performed By: #### DEE MOORE, 10447-9, 47827-0 #### [facility] ([id number]) [address], [address] [place] [address] BASIC METABOLIC PANLon 07-07 Anion gap [Moles/Vol] 8 mmol/L Normal 5-15 [facility] Comment on above: Performed By: #### DEE MOORE, 78655-2, 45852-6 #### [facility] ([id number]) [address], [address] [place] [address] Calcium [Mass/Vol] 8.8 mg/dL Normal 8.5-10.5 [facility] Comment on above: Performed By: #### Emily GAMA BMP, 37764-1, 20305-5 #### [facility] ([id number]) [address], [address] [place] [address] Chloride [Moles/Vol] 107 mmol/L Normal 98-109 [facility] Comment on above: Performed By: #### C BC, BMP, 14859-9, 29720-5 #### [facility] ([id number]) [address], [address] [place] [address] CO2 [Moles/Vol] 30 mmol/L Normal 22-32 [facility] Comment on above: Performed By: #### C BC, BMP, 17693-6, 58308-8 #### [facility] ([id number]) [address], [address] [place] [address] Creatinine [Mass/Vol] 1.00 mg/dL Normal 0.60-1.30 [facility] Comment on above: Result Comment: METH OD TRACEABLE TO IDMS STANDARD Performed By: #### C NATAN, BMP, 10757-4, 78307-2 #### [facility] ([id number]) [address], [address] [place] [address] GFR/1.73 sq M.predicted among non-blacks MDRD (S/P/Bld) [Vol rate/Area] 87 mL/min/{1.73_m2} Normal >59 [facility] Comment on above: Result Comment: Reported eGFR is based on the CKD-EPI 2020 equation that does not use a race coefficient. Performed By: #### C BC, BMP, 52671-1, 57442-9 #### [facility] ([id number]) [address], [address] [place] [address] Glucose [Mass/Vol] 106 mg/dL High 65-99 [facility] Comment on above: Performed By: #### C BC, BMP, 08778-8, 56083-6 #### [facility] ([id number]) [address], [address] [place] [address] Potassium [Moles/Vol] 3.9 mmol/L Normal 3.5-5.0 [facility] Comment on above: Performed By: #### C NATAN, BMP, 69273-1, 08287-3 #### [facility] ([id number]) [address], [address] [place] [address] Sodium [Moles/Vol] 145 mmol/L Normal 134-146 [facility] Comment on above: Performed By: #### Emily GAMA, BMP, 02149-8, 99164-4 #### [facility] ([id number]) [address], [address] [place] [address] Urea nitrogen [Mass/Vol] 23 mg/dL Normal 5-23 [facility] Comment on above: Performed By: #### Emily GAMA, DEE, 03102-9, 91610-4 #### [facility] ([id number]) [address], [address] [place] [address] Basic Metabolic Panelon 06-20 Anion gap [Moles/Vol] 8 mmol/L 5 - 15 mmol/L [facility] Calcium [Mass/Vol] 8.8 mg/dL 8.5 - 10. 5 mg/dL [facility] Chloride [Moles/Vol] 107 mmol/L 98 - 10 9 mmol/L [facility] CO2 [Moles/Vol] 30 mmol/L 22 - 32 mmol/L [facility] Creatinine [Mass/Vol] 1 mg/dL 0.60 - 1.30 mg/dL [facility] Comment on above: METHOD TRACEABLE TO IDMS STANDARD eGFR (CKD-EPI)non-race dependent 87 - PINF [facility] Comment on above: Reported eGFR is based on the CKD-EPI 2020 equation that does not use a race coefficient. Glucose [Mass/Vol] 106 mg/dL High 65 - 99 mg/dL [facility] Interpretation and review of laboratory results Abnormal [facility] Potassium [Moles/Vol] 3.9 mmol/L 3.5 - 5.0 mmol/L [facility] Sodium [Moles/Vol] 145 mmol/L 134 - 146 mmol/L [facility] Urea nitrogen [Mass/Vol] 23 mg/dL 5 - 23 mg/dL [facility] CBC without diffon Erythrocyte distribution width (RBC) [Ratio] 15.3 % High 11.5 - 15.0 % [facility] Hematocrit (Bld) [Volume fraction] 41.3 % 39 - 49 % [facility] Hemoglobin (Bld) [Mass/Vol] 13.4 g/dL 13.0 - 17.0 g/dL [facility] Interpretation and review of laboratory results Abnormal [facility] MCH (RBC) [Entitic mass] 24.7 pg Low 27 - 34 pg [facility] MCHC (RBC) [Mass/Vol] 32.5 g/dL 32 - 3 6 g/dL [facility] MCV (RBC) [Entitic vol] 76 fL Low 80 - 100 fL [facility] Platelet mean volume (Bld) [Entitic vol] 7.8 fL 7 - 12 fL [facility] Platelets (Bld) [#/Vol] 152 10*3/uL [facility] RBC (Bld) [#/Vol] 5.45 10*6/uL [facility] WBC corrected for nucl RBC Auto (Bld) [#/Vol] 4.4 [facility] COMPLETE BLOOD COUNTon 07-07 Erythrocyte distribution width (RBC) [Ratio] 15.3 % High 11.5-15.0 [facility] Comment on above: Performed By: #### C DEE GAMA, 87080-0, 06246-3 #### [facility] ([id number]) [address] [place] [address] Hematocrit (Bld) [Volume fraction] 41.3 % Normal 39-49 [facility] Comment on above: Performed By: #### C DEE GAMA, 69544-0, 71970-8 #### [facility] ([id number]) [address], [address] [place] [address] Hemoglobin (Bld) [Mass/Vol] 13.4 g/dL Normal 13.0-17.0 [facility] Comment on above: Performed By: #### C BC, BMP, 68021-1, 32928-7 #### [facility] ([id number]) [address], [facility] [address] [place] [address] MCH (RBC) [Entitic mass] 24.7 pg Low 27-34 [facility] Comment on above: Performed By: #### Emily GAMA, BMP, 03624-8, 06026-8 #### [facility] ([id number]) [address], [address] [place] [address] MCHC (RBC) [Mass/Vol] 32.5 g/dL Normal 32-36 [facility] Comment on above: Performed By: #### Emily GAMA, BMP, 76643-1, 61614-1 #### [facility] ([id number]) [address], [facility] [address] [place] [address] MCV (RBC) [Entitic vol] 76 fL Low 80-100 [facility] Comment on above: Performed By: #### Emily GAMA, BMP, 21613-5, 17878-8 #### [facility] ([id number]) [address], [address] [place] [address] Platelet mean volume (Bld) [Entitic vol] 7.8 fL Normal 7-12 [facility] Comment on above: Performed By: #### Emily BC, BMP, 19222-3, 41479-0 #### [facility] ([id number]) [address], [address] [place] [address] Platelets (Bld) [#/Vol] 152 10*3/uL Normal 150-450 [facility] Comment on above: Performed By: #### Emily BC, BMP, 31497-3, 43495-2 #### [facility] ([id number]) [address] [place] [address] RBC COUNT 5.45 X10E12/L Normal 4.10-5.70 [facility] Comment on above: Performed By: #### C NATAN, DEE, 41920-6, 85599-4 #### [facility] ([id number]) [address] [place] [address] WBC (Bld) [#/Vol] 4.4 10*3/uL Normal 4.0-11.0 [facility] Comment on above: Performed By: #### C NATAN, DEE, 42531-6, 68384-1 #### [facility] ([id number]) [address], [address] [place] [address] CT BRAIN WO CONTon 5 CT BRAIN [...] Johnson MD on 07/07/2024 9:19 AM Normal [facility] CT Head WO contraston 2024 CT [...] Delonte Johnson MD on 07/07/2024 9:19 AM [facility] Delonte Johnson MD - 07/07/2024 CT BRAIN [...] Delonte Johnson MD on 07/07/2024 9:19 AM [employer] [facility] Study observation (narrative) [employer] CT Head WO contrastOrdered B y: Delonte Johnson on 07-07-2024 [employer] Work Phone: EEGon 07-07-2024 Images from [...] RESULTS EEGOrdered By: Reji Sanon on 07-07-2024 [employer] Work Phone: T. pallidum IgG+IgM IA Ql (S )on 07-07-2024 Syphilis Total <0.2 Normal 0.0-0.8 [facility] Comment on above: Result Comment: NON REACTIVE No serologic evidence of infection to Treponema pallidum (syphilis). Repeat testing may be considered in patients with suspected acute or primary syphilis in 2 to 4 weeks. Performed By: #### C BC, BMP, 85423-6, 51406-1 #### [facility] ([id number]) [address], [address] [place] [address] BASIC METABOLIC PANLon 07-06 Anion gap [Moles/Vol] 7 mmol/L Normal 5-15 [facility] Comment on above: Performed By: #### Emily GAMA, BMP, , 2776-06, THYR #### [facility] ([id number]) [address], [address] [place] [address] Calcium [Mass/Vol] 8.8 mg/dL Normal 8.5-10.5 [facility] Comment on above: Performed By: #### Emily GAMA, BMP, , 2776-06, THYR #### [facility] ([id number]) [address], [address] [place] [address] Chloride [Moles/Vol] 105 mmol/L Normal 98-109 [facility] Comment on above: Performed By: #### Emily GAMA, BMP, , 2776-06, THYR #### [facility] ([id number]) [address], [address] [place] [address] CO2 [Moles/Vol] 30 mmol/L Normal 22-32 [facility] Comment on above: Performed By: #### Emily BC, BMP, , 2776-06, THYR #### [facility] ([id number]) [address], [address] [place] [address] Creatinine [Mass/Vol] 1.00 mg/dL Normal 0.60-1.30 [facility] Comment on above: Result Comment: METH OD TRACEABLE TO IDMS STANDARD Performed By: #### C NATAN, DEE, , 2776-06, THYR #### [facility] ([id number]) [address], [facility] [address] [place] [address] GFR/1.73 sq M.predicted among non-blacks MDRD (S/P/Bld) [Vol rate/Area] 87 mL/min/{1.73_m2} Normal >59 [facility] Comment on above: Result Comment: Reported eGFR is based on the CKD-EPI 2020 equation that does not use a race coefficient. Performed By: #### C NATAN, DEE, , 2776-06, THYR #### [facility] ([id number]) [address], [address] [place] [address] Glucose [Mass/Vol] 102 mg/dL High 65-99 [facility] Comment on above: Performed By: #### C NATAN, DEE, , 2776-06, THYR #### [facility] ([id number]) [address] [place] [address] Potassium [Moles/Vol] 4.0 mmol/L Normal 3.5-5.0 [facility] Comment on above: Performed By: #### DEE MOORE, , 2776-06, THYR #### [facility] ([id number]) [address], [address] [place] [address] Sodium [Moles/Vol] 142 mmol/L Normal 134-146 [facility] Comment on above: Performed By: #### C NATAN, BMP, , 2776-06, THYR #### [facility] ([id number]) [address], [address] [place] [address] Urea nitrogen [Mass/Vol] 22 mg/dL Normal 5-23 [facility] Comment on above: Performed By: #### C DEE GAMA, 14826-1, 2777-1, THYR #### [facility] ([id number]) [address] [place] [address] Basic Metabolic Panelon 06-20 Anion gap [Moles/Vol] 7 mmol/L 5 - 15 mmol/L [facility] Calcium [Mass/Vol] 8.8 mg/dL 8.5 - 10. 5 mg/dL [facility] Chloride [Moles/Vol] 105 mmol/L 98 - 10 9 mmol/L [facility] CO2 [Moles/Vol] 30 mmol/L 22 - 32 mmol/L [facility] Creatinine [Mass/Vol] 1 mg/dL 0.60 - 1.30 mg/dL [facility] Comment on above: METHOD TRACEABLE TO [facility] STANDARD eGFR (CKD-EPI)non-race dependent 87 - PINF [facility] Comment on above: Reported eGFR is based on the CKD-EPI 2020 equation that does not use a race coefficient. Glucose [Mass/Vol] 102 mg/dL High 65 - 99 mg/dL [facility] Interpretation and review of laboratory results Abnormal [facility] Potassium [Moles/Vol] 4 mmol/L 3.5 - 5.0 mmol/L [facility] Sodium [Moles/Vol] 142 mmol/L 134 - 146 mmol/L [facility] Urea nitrogen [Mass/Vol] 22 mg/dL 5 - 23 mg/dL [facility] CBC without diffon Erythrocyte distribution width (RBC) [Ratio] 15.5 % High 11.5 - 15.0 % [facility] Hematocrit (Bld) [Volume fraction] 42.8 % 39 - 49 % [facility] Hemoglobin (Bld) [Mass/Vol] 14.1 g/dL 13.0 - 17.0 g/dL [facility] Interpretation and review of laboratory results Abnormal [facility] MCH (RBC) [Entitic mass] 24.7 pg Low 27 - 34 pg [facility] MCHC (RBC) [Mass/Vol] 33 g/dL 32 - 3 6 g/dL [facility] MCV (RBC) [Entitic vol] 75 fL Low 80 - 100 fL [facility] Platelet mean volume (Bld) [Entitic vol] 7.8 fL 7 - 12 fL [facility] Platelets (Bld) [#/Vol] 169 10*3/uL [facility] RBC (Bld) [#/Vol] 5.71 10*6/uL High [facility] WBC corrected for nucl RBC Auto (Bld) [#/Vol] 4.7 [facility] COMPLETE BLOOD COUNTon 07-06 Erythrocyte distribution width (RBC) [Ratio] 15.5 % High 11.5-15.0 [facility] Comment on above: Performed By: #### C NATAN, [facility], , 2776-06, THYR #### [facility] ([id number]) [address], [address] [place] [address] Hematocrit (Bld) [Volume fraction] 42.8 % Normal 39-49 [facility] Comment on above: Performed By: #### Emily GAMA [facility], , 2776-06, THYR #### [facility] ([id number]) [address], [address] [place] [address] Hemoglobin (Bld) [Mass/Vol] 14.1 g/dL Normal 13.0-17.0 [facility] Comment on above: Performed By: #### Emily GAMA [facility], , 2776-06, THYR #### [facility] ([id number]) [address], [address] [place] [address] MCH (RBC) [Entitic mass] 24.7 pg Low 27-34 [facility] Comment on above: Performed By: #### Emily GAMA, [facility], , 2776-06, THYR #### [facility] ([id number]) [address], [address] [place] [address] MCHC (RBC) [Mass/Vol] 33.0 g/dL Normal 32-36 [facility] Comment on above: Performed By: #### Emily GAMA, BMP, , 2776-06, THYR #### [facility] ([id number]) [address], [address] [place] [address] MCV (RBC) [Entitic vol] 75 fL Low 80-100 [facility] Comment on above: Performed By: #### Emily GAMA, BMP, , 2776-06, THYR #### [facility] ([id number]) [address], [address] [place] [address] Platelet mean volume (Bld) [Entitic vol] 7.8 fL Normal 7-12 [facility] Comment on above: Performed By: #### Emily GAMA, BMP, , 2776-06, THYR #### [facility] ([id number]) [address], [address] [place] [address] Platelets (Bld) [#/Vol] 169 10*3/uL Normal 150-450 [facility] Comment on above: Performed By: #### Emily GAMA, BMP, , 2776-06, THYR #### [facility] ([id number]) [address], [address] [place] [address] RBC COUNT 5.71 X10E12/L High 4.10-5.70 [facility] Comment on above: Performed By: #### Emily GAMA, BMP, , 2776-06, THYR #### [facility] ([id number]) [address], [address] [place] [address] WBC (Bld) [#/Vol] 4.7 10*3/uL Normal 4.0-11.0 [facility] Comment on above: Performed By: #### Emily GAMA, BMP, , 2776-06, THYR #### [facility] ([id number]) [address], [address] [place] [address] MAGNESIUMon 07-06-2024 Magnesium [Mass/Vol] 1.9 mg/dL Normal 1.8-2.6 [facility] Comment on above: Performed By: #### DEE MOORE, , 2776-06, THYR #### [facility] ([id number]) [address], [address] [place] [address] Magnesiumon 07-06-2024 Magnesium [Mass/Vol] 1.9 mg/dL 1.8 - 2 .6 mg/dL [facility] No Panel Informationon 07-06 [facility] PHOSPHORUSon 07-06-2024 Phosphate [Mass/Vol] 4.1 mg/dL Normal 2.4-4.9 [facility] Comment on above: Performed By: #### DEE MOORE, , 2776-06, THYR #### [facility] ([id number]) [address], [address] [place] [address] Phosphoruson 07-06-2024 Phosphate [Mass/Vol] 4.1 mg/dL 2.4 - 4 .9 mg/dL [facility] THYROID PROFILEon 07-06-2024 Free T4 [Mass/Vol] 0.84 ng/dL Normal 0.61-1.60 [facility] Comment on above: Performed By: #### DEE MOORE, , 2776-06, THYR #### [facility] ([id number]) [address], [address] [place] [address] TSH 1.16 uIU/mL Normal 0.49-4.67 [facility] Comment on above: Performed By: #### DEE MOORE, , 2776-06, THYR #### [facility] ([id number]) [address], [address] [place] [address] Thyroid profile includes TSH FT4on 07-06-2024 Free T4 [Mass/Vol] 0.84 ng/dL 0.61 - 1. 60 ng/dL [facility] TSH Qn 1.16 m[IU]/L [facility] ACETAMINOPHENon 06-24-2024 Acetaminophen [Mass/Vol] 3.3 ug/mL Low 10.0-30.0 [facility] Comment on above: Result Comment: Refe rence ranges are for therapeutic limits. Performed By: #### C OWEN BUTLER, 5643-2, 3298-7, 4024-6, THYR #### [facility] ([id number]) [address] [place] [address] CBC AND AUTO DIFFon 06-24-19 25 ABSOLUTE BASOPHIL 0.1 X10E9/L Normal 0.0-0.2 [facility] Comment on above: Performed By: #### Emily BUTLER CMP, 5643-2, 3298-7, 40246, THYR #### [facility] ([id number]) [address] [place] [address] ABSOLUTE NEUTROPHIL 3.1 X10E9/L Normal 1.5-6.6 [facility] Comment on above: Performed By: #### C OWEN BUTLER, 5643-2, 3298-7, 4-6, THYR #### [facility] ([id number]) [address] [place] [address] Basophils/100 WBC (Bld) 1.0 % Normal [facility] Comment on above: Performed By: #### C OWEN BUTLER, 5643-2, 3298-7, 4024-6, THYR #### [facility] ([id number]) [address] [place] [address] Eosinophils (Bld) [#/Vol] 0.1 10*3/uL Normal 0.0-0.4 [facility] Comment on above: Performed By: #### Emily BUTLER CMP, 5643-2, 3298-7, 4024-6, THYR #### [facility] ([id number]) [address] [place] [address] Eosinophils/100 WBC (Bld) 1.4 % Normal [facility] Comment on above: Performed By: #### C CARRIE, OWEN, 5643-2, 3298-7, 4024-6, THYR #### [facility] ([id number]) [address] [place] [address] Erythrocyte distribution width (RBC) [Ratio] 15.6 % High 11.5-15.0 [facility] Comment on above: Performed By: #### C CARRIE, [facility], 5643-2, 3298-7, 4-6, THYR #### [facility] ([id number]) [address] [place] [address] Hematocrit (Bld) [Volume fraction] 42.7 % Normal 39-49 [facility] Comment on above: Performed By: #### C CARRIE, [facility], 5643-2, 3298-7, 4-6, THYR #### [facility] ([id number]) [address] [place] [address] Hemoglobin (Bld) [Mass/Vol] 14.3 g/dL Normal 13.0-17.0 [facility] Comment on above: Performed By: #### C CARRIE, [facility], 5643-2, 3298-7, 4024-6, THYR #### [facility] ([id number]) [address] [place] [address] Lymphocytes (Bld) [#/Vol] 1.8 10*3/uL Normal 1.0-3.5 [facility] Comment on above: Performed By: #### C CARRIE, CMP, 5643-2, 3298-7, 4024-6, THYR #### [facility] ([id number]) [address] [place] [address] Lymphocytes/100 WBC (Bld) 33.3 % Normal [facility] Comment on above: Performed By: #### C CARRIE, CMP, 5643-2, 3298-7, 4024-6, THYR #### [facility] ([id number]) [address] [place] [address] MCH (RBC) [Entitic mass] 24.7 pg Low 27-34 [facility] Comment on above: Performed By: #### C BCA, CMP, 5643-2, 3298-7, 4024-6, THYR #### [facility] ([id number]) [address] [place] [address] MCHC (RBC) [Mass/Vol] 33.4 g/dL Normal 32-36 [facility] Comment on above: Performed By: #### C CARRIE, OWEN, 5643-2, 3298-7, 4024-6, THYR #### [facility] ([id number]) [address] [place] [address] MCV (RBC) [Entitic vol] 74 fL Low 80-100 [facility] Comment on above: Performed By: #### C CARRIE, CMP, 5643-2, 3298-7, 4-6, THYR #### [facility] ([id number]) [address] [place] [address] Monocytes (Bld) [#/Vol] 0.4 10*3/uL Normal 0-0.9 [facility] Comment on above: Performed By: #### C CARRIE, CMP, 5643-2, 3298-7, 4024-6, THYR #### [facility] ([id number]) [address] [place] [address]88 Monocytes/100 WBC (Bld) 6.9 % Normal [facility] Comment on above: Performed By: #### C BCA, CMP, 5643-2, 3298-7, 4024-6, THYR #### [facility] ([id number]) [address] [place] [address]207 Neutrophils/100 WBC (Bld) 57.4 % Normal [facility] Comment on above: Performed By: #### Emily BUTLER, CMP, 5643-2, 3298-7, 4024-6, THYR #### [facility] ([id number]) [address] [place] [address] Platelet mean volume (Bld) [Entitic vol] 7.8 fL Normal 7-12 [facility] Comment on above: Performed By: #### Emily BUTLER, CMP, 5643-2, 3298-7, 4024-6, THYR #### [facility] ([id number]) [address] [place] [address] Platelets (Bld) [#/Vol] 174 10*3/uL Normal 150-450 [facility] Comment on above: Performed By: #### Emily BUTLER, CMP, 5643-2, 3298-7, 4024-6, THYR #### [facility] ([id number]) [address] [place] [address] RBC COUNT 5.77 X10E12/L High 4.10-5.70 [facility] Comment on above: Performed By: #### Emily BUTLER, CMP, 5643-2, 3298-7, 4024-6, THYR #### [facility] ([id number]) [address] [place] [address] WBC (Bld) [#/Vol] 5.4 10*3/uL Normal 4.0-11.0 [facility] Comment on above: Performed By: #### Emily BCA, CMP, 5643-2, 3298-7, 4024-6, THYR #### [facility] ([id number]) [address] [place] [address] COMPREHENSIVE METABOLIC PANE Jatin 06-24-2024 Albumin [Mass/Vol] 4.0 g/dL Normal 3.2-5.3 [facility] Comment on above: Performed By: #### C BCA, CMP, 5643-2, 3298-7, 4024-6, THYR #### [facility] ([id number]) [address] [place] [address]78 ALP [Catalytic activity/Vol] 65 U/L Normal 39-130 [facility] Comment on above: Performed By: #### C BCA, CMP, 5643-2, 3298-7, 4024-6, THYR #### [facility] ([id number]) [address] [place] [address] 19711 ALT [Catalytic activity/Vol] 17 U/L Normal 0-40 [facility] Comment on above: Performed By: #### C BCA, CMP, 5643-2, 3298-7, 4024-6, THYR #### [facility] ([id number]) [address] [place] [address] 13496 Anion gap [Moles/Vol] 8 mmol/L Normal 5-15 [facility] Comment on above: Performed By: #### C BCA, CMP, 5643-2, 3298-7, 4024-6, THYR #### [facility] ([id number]) [address] [place] [address] 32609 AST [Catalytic activity/Vol] 17 U/L Normal 0-41 [facility] Comment on above: Performed By: #### C BCA, CMP, 5643-2, 3298-7, 4024-6, THYR #### [facility] ([id number]) [address] [place] [address]405 Bilirubin [Mass/Vol] 0.7 mg/dL Normal 0.3-1.2 [facility] Comment on above: Performed By: #### C BCA, CMP, 5643-2, 3298-7, 4024-6, THYR #### [facility] ([id number]) [address] [place] [address] 39864 Calcium [Mass/Vol] 8.9 mg/dL Normal 8.5-10.5 [facility] Comment on above: Performed By: #### C BCA, CMP, 5643-2, 3298-7, 4024-6, THYR #### [facility] ([id number]) [address] [place] [address] 84962 Chloride [Moles/Vol] 106 mmol/L Normal 98-109 [facility] Comment on above: Performed By: #### C BCA, CMP, 5643-2, 3298-7, 4024-6, THYR #### [facility] ([id number]) [address] [place] [address] 28765 CO2 [Moles/Vol] 24 mmol/L Normal 22-32 [facility] Comment on above: Performed By: #### C BCA, CMP, 5643-2, 3298-7, 4024-6, THYR #### [facility] ([id number]) [address] [place] [address] 12977 Creatinine [Mass/Vol] 0.88 mg/dL Normal 0.70-1.20 [facility] Comment on above: Result Comment: METH OD TRACEABLE TO [facility] STANDARD Performed By: #### C BCA, CMP, 5643-2, 3298-7, 4024-6, THYR #### [facility] ([id number]) [address] [place] [address]69 eGFR (CKD-EPI) NON-RACE DEPENDENT >90 Normal >59 [facility] Comment on above: Result Comment: Reported eGFR is based on the CKD-EPI 2020 equation that does not use a race coefficient. Performed By: #### C BCA, CMP, 5643-2, 3298-7, 4024-6, THYR #### [facility] ([id number]) [address] [place] [address] 36481 Glucose [Mass/Vol] 105 mg/dL High 65-99 [facility] Comment on above: Performed By: #### C BCA, CMP, 5643-2, 3298-7, 4024-6, THYR #### [facility] ([id number]) [address] [place] [address] 94433 Potassium [Moles/Vol] 3.9 mmol/L Normal 3.5-5.0 [facility] Comment on above: Performed By: #### C CARRIE, CMP, 5643-2, 3298-7, 4024-6, THYR #### [facility] ([id number]) [address] [place] [address] 01765 Protein [Mass/Vol] 6.9 g/dL Normal 6.0-8.0 [facility] Comment on above: Performed By: #### C CARRIE, CMP, 5643-2, 3298-7, 4024-6, THYR #### [facility] ([id number]) [address] [place] [address] 49679 Sodium [Moles/Vol] 138 mmol/L Normal 134-146 [facility] Comment on above: Performed By: #### C BCA, CMP, 5643-2, 3298-7, 4024-6, THYR #### [facility] ([id number]) [address] [place] [address] 18897 Urea nitrogen [Mass/Vol] 20 mg/dL Normal 5-23 [facility] Comment on above: Performed By: #### C BCA, CMP, 5643-2, 3298-7, 4024-6, THYR #### [facility] ([id number]) [address] [place] [address] 03759 DRUG SCREEN, URINEon 025 AMPHETAMINE/METHAMP Negative Normal NEG [facility] Comment on above: Result Comment: AMPH /METH screening cut off = 1000 ng/mL Performed By: #### D FAGAN #### [facility] ([id number]) [address] [place] [address]694 BARBITURATES Negative Normal NEG [facility] Comment on above: Result Comment: Izabel iturates screening cut off value = 200 ng/mL Performed By: #### D FAGAN #### [facility] ([id number]) [address] [place] [address] 39409 BENZODIAZEPINES Negative Normal NEG [facility] Comment on above: Result Comment: Skyler odiazepines screening cut off value = 200 ng/mL Performed By: #### D FAGAN #### [facility] ([id number]) [address] [place] [address] 85687 CANNABINOIDS Negative Normal NEG [facility] Comment on above: Result Comment: Sabina abinoids/THC screening cut off value = 50 ng/mL Performed By: #### D FAGAN #### [facility] ([id number]) [address] [place] [address] 52472 COCAINE METABOLITE Negative Normal NEG [facility] Comment on above: Result Comment: Coca ine screening cut off value = 300 ng/mL Performed By: #### D FAGAN #### [facility] ([id number]) [address] [place] [address] 95137 ECSTASY Negative Normal NEG [facility] Comment on above: Result Comment: Ecst asy screening cut off value = 500 ng/mL This report is intended for use in clinical monitoring or management of patients. Performed By: #### D FAGAN #### [facility] ([id number]) [address] [place] [address] [place] [address] METHADONE Negative Normal NEG [facility] Comment on above: Result Comment: Meth adone screening cut off value = 300 ng/mL. Performed By: #### D FAGAN #### [facility] ([id number]) [address] [place] [address] 11635 OPIATES Negative Normal NEG [facility] Comment on above: Result Comment: Opia ann screening cut off value = 300 ng/mL NOTE: This test is used for the detection of codeine, hydrocodone (>1000 ng/mL), morphine and hydromorphone (>900 ng/mL) in urine. Performed By: #### D FAGAN #### [facility] ([id number]) [address] [place] [address] 25930 OXYCODONE Negative Normal NEG [facility] Comment on above: Result Comment: Oxyc odone screening cut off value = 300 ng/mL NOTE: This test is used for the detection of oxycodone and oxymorphone in urine. Performed By: #### D FAGAN #### [facility] ([id number]) [address] [place] [address]150 PHENCYCLIDINE Negative Normal NEG [facility] Comment on above: Result Comment: Phen cyclidine screening cut off value = 25 ng/mL Performed By: #### D FAGAN #### [facility] ([id number]) [address] [place] [address] 23733 ETHANOLon 06-24-2024 Ethanol [Mass/Vol] mg/dL Normal 0.00-0.08 [facility] Comment on above: Result Comment: This report is intended for use in clinical monitoring or management of patients. Performed By: #### C BCA, CMP, 5643-2, 3298-7, 4024-6, THYR #### [facility] ([id number]) [address] [place] [address] 42239 Salicylates [Mass/Vol]on SALICYLATE <4.0 Normal 2.0-25.0 [facility] Comment on above: Result Comment: Refe rence ranges are for therapeutic limits. Performed By: #### C BCA, CMP, 5643-2, 3298-7, 4024-6, THYR #### [facility] ([id number]) [address] [place] [address] 62205 THYROID PROFILEon 06-24-2024 Free T4 [Mass/Vol] 0.92 ng/dL Normal 0.61-1.60 [facility] Comment on above: Performed By: #### C BCA, CMP, 5643-2, 3298-7, 4024-6, THYR #### [facility] ([id number]) [address] [place] [address] 63300 TSH 4.19 uIU/mL Normal 0.49-4.67 [facility] Comment on above: Performed By: #### C CARRIE, CMP, 5643-2, 3298-7, 4024-6, THYR #### [facility] ([id number]) [address] [place] [address] [place] [address] URN MACROSCOPIC NURon 2024 BILIRUBIN IRMA Negative Normal NEG [facility] Comment on above: Performed By: #### N UM #### [facility] ([id number]) [address] [place] [address] [place] [address] BLOOD/HGB IRMA Negative Normal NEG [facility] Comment on above: Performed By: #### N UM #### [facility] ([id number]) [address] [place] [address] [place] [address] GLUCOSE IRMA Negative Normal NEG [facility] Comment on above: Performed By: #### N UM #### [facility] ([id number]) [address] [place] [address] [place] [address] KETONES IRMA Negative Normal NEG [facility] Comment on above: Performed By: #### N UM #### [facility] ([id number]) [address] [place] [address] [place] [address] LEUKOCYTE ESTERASE IRMA Negative Normal NEG [facility] Comment on above: Performed By: #### N UM #### [facility] ([id number]) [address] [place] [address] 19606 NITRITE IRMA Negative Normal NEG [facility] Comment on above: Performed By: #### N UM #### [facility] ([id number]) [address] [place] [address] 53174 PH IRMA 7.5 Normal 5.0-8.5 [facility] Comment on above: Performed By: #### N UM #### [facility] ([id number]) [address] [place] [address] 75666 PROTEIN IRMA Negative Normal NEG [facility] Comment on above: Performed By: #### N UM #### [facility] ([id number]) [address] [place] [address] 82600 SPECIFIC GRAVITY IRMA 1.015 Normal 1.003-1.035 [facility] Comment on above: Performed By: #### N UM #### [facility] ([id number]) [address] [place] [address] 22300 UROBILINOGEN IRMA 0.2 eu/dL Normal <1.1 [facility] Comment on above: Performed By: #### N UM #### [facility] ([id number]) [address] [place] [address] 88462 BMPon 06-21-2024 Anion gap [Moles/Vol] 11 mmol/L Normal 6-16 [facility] Comment on above: Performed By: #### 2 [id number] #### [facility] [address] [place] [address] Calcium [Mass/Vol] 9.0 mg/dL Normal 8.9-11.1 [facility] Comment on above: Performed By: #### 2 [id number] #### [facility] [address] [place] [address] Chloride [Moles/Vol] 102 mmol/L Normal 101-[address] [facility] Comment on above: Performed By: #### 2 [id number] #### [facility] [address] [place] [address] CO2 [Moles/Vol] 30 mmol/L Normal 21-31 [facility] Comment on above: Performed By: #### 2 [id number] #### [facility] [address] [place] [address] Creatinine [Mass/Vol] 0.9 mg/dL Normal 0.5-1.3 [facility] Comment on above: Performed By: #### 2 [id number] #### [facility] [address] [place] [address] Glucose [Mass/Vol] 108 mg/dL Normal 55-199 [facility] Comment on above: Performed By: #### 2 [id number] #### [facility] [address] [place] [address] Potassium [Moles/Vol] 3.9 mmol/L Normal 3.5-5.3 [facility] Comment on above: Performed By: #### 2 [id number] #### [facility] [address] [place] [address] Sodium [Moles/Vol] 139 mmol/L Normal 135-145 [facility] Comment on above: Performed By: #### 2 [id number] #### [facility] [address] [place] [address] Urea nitrogen [Mass/Vol] 12 mg/dL Normal 5-21 [facility] Comment on above: Performed By: #### 2 [id number] #### [facility] [address] [place] [address] Urea nitrogen/Creatinine [Mass ratio] 13 No Units Normal 10-20 [facility] Comment on above: Performed By: #### 2 [id number] #### [facility] [address] [place] [address] CBC w/ Auto Diffon 5 Basophils/100 WBC (Bld) 0.6 % Normal 0.0-2.0 [facility] Comment on above: Performed By: #### 2 [id number] #### [facility] [address] [place] [address] Basophils/Leukocytes Auto (Bld) [Pure # fraction] 0.0 E9/L Normal 0.0-0.2 [facility] Comment on above: Performed By: #### 2 [id number] #### [facility] [address] [place] [address] Eosinophils (Bld) [#/Vol] 0.0 E9/L Normal 0.0-0.5 [facility] Comment on above: Performed By: #### 2 [id number] #### [facility] [address] [place] [address] Eosinophils/100 WBC (Bld) 0.6 % Normal 0.0-8.0 [facility] Comment on above: Performed By: #### 2 [id number] #### [facility] [address] [place] [address] Erythrocyte distribution width (RBC) [Ratio] 15.6 % High 10.9-14.2 [facility] Comment on above: Performed By: #### 2 [id number] #### [facility] [address] [place] [address] Hematocrit (Bld) [Volume fraction] 45.0 % Normal 37.7-49.0 [facility] Comment on above: Performed By: #### 2 [id number] #### [facility] [address] [place] [address] Hemoglobin (Bld) [Mass/Vol] 14.7 g/dL Normal 13.5-17.5 [facility] Comment on above: Performed By: #### 2 [id number] #### [facility] [address] [place] [address] Hypochromia Auto Ql (Bld) PRESENT Invalid Interpretation Code [facility] Comment on above: Performed By: #### 2 [id number] #### [facility] [address] [place] [address] Lymphocytes (Bld) [#/Vol] 1.1 E9/L Normal 1.0-4.0 [facility] Comment on above: Performed By: #### 2 [id number] #### [facility] [address] [place] [address] Lymphocytes/100 WBC (Bld) 23.5 % Normal 14.0-50.0 [facility] Comment on above: Performed By: #### 2 [id number] #### [facility] [address] [place] [address] MCH (RBC) [Entitic mass] 24.7 pg Low 27.0-34.0 [facility] Comment on above: Performed By: #### 2 [id number] #### [facility] [address] [place] [address] MCHC (RBC) [Mass/Vol] 32.7 g/dL Normal 31.4-36.0 [facility] Comment on above: Performed By: #### 2 [id number] #### [facility] [address] [place] [address] MCV (RBC) [Entitic vol] 75.5 fL Low 80.0-100.0 [facility] Comment on above: Performed By: #### 2 [id number] #### [facility] [address] [place] [address] Monocytes (Bld) [#/Vol] 0.2 E9/L Normal 0.2-1.0 [facility] Comment on above: Performed By: #### 2 [id number] #### [facility] [address] [place] [address] Neutrophils (Bld) [#/Vol] 3.3 E9/L Normal 2.0-7.5 [facility] Comment on above: Performed By: #### 2 [id number] #### [facility] [address] [place] [address] Neutrophils/100 WBC (Bld) 70.5 % Normal 36.0-75.0 [facility] Comment on above: Performed By: #### 2 [id number] #### [facility] [address] [place] [address] Platelet mean volume (Bld) [Entitic vol] 8.5 fL Normal 6.4-10.8 [facility] Comment on above: Performed By: #### 2 [id number] #### [facility] [address] [place] [address] Platelets (Bld) [#/Vol] 167.0 E9/L Normal 150.0-500.0 [facility] Comment on above: Performed By: #### 2 [id number] #### [facility] [address] [place] [address] RBC (Bld) [#/Vol] 6.0 E12/L High 4.3-5.9 [facility] Comment on above: Performed By: #### 2 [id number] #### [facility] [address] [place] [address] RBC size Nom (Bld) SEE MORPHOLOGY Invalid Interpretation Code [facility] Comment on above: Performed By: #### 2 [id number] #### [facility] [address] [place] [address] WBC corrected for nucl RBC Auto (Bld) [#/Vol] 4.6 E9/L Normal 4.0-11.0 [facility] Comment on above: Performed By: #### 2 [id number] #### [facility] [address] [place] [address] CHEMISTRYOrdered By: SYSTEM SYSTEM on 06-21-2024 Anion [...] 30.4 s Normal 25.1 - 36.5 second(s) [facility] Auto Coag Comment on above: Interpretive Data: [...] the same coagulation reagent and instrumentation as [facility]. Currently there are no coagulation studies available worldwide for children to 14 days, and no normal ranges. Heparin therapeutic range (represented by Anti-Factor Xa activity of 0.2 - 0.4 U/mL) corresponds to PTT of 56.6 - 109.0 sec. INR Coag (PPP) [Relative time] 1.02 {INR} Invalid Interpretation Code [facility] Auto Coag Comment on above: Interpretive Data: I NR results are specifically intended to assess patients stabilized on long-term Anticoagulation therapy suggested INR s Less Intensive Anticoagulation 2.0 3.0 Conventional Range 3.0 4.5 PT Coag (PPP) [Time] 11.4 s Normal 9.4 - 1 2.5 second(s) [facility] Auto Coag Comment on above: Interpretive Data: [...] the same coagulation reagent and instrumentation as [facility]. Currently there are no coagulation studies available [...] Coag (PPP) [Time] 30.4 second(s) Normal 25.1-36.5 [facility] Comment on above: Result Comment: Para meter 15 days - 4 weeks 1 - 5 months 6 - 11 months 1 - 5 years 6 - 10 years 11 - 17 years PTT Mean: 35.4 (27.6-45.6) Mean: 33.5 (24.8-40.7) Mean: 32.4 (25.1-40.7) Mean: 31.6 (24.0-39.2) Mean: 31.6 (26.9-38.7) Mean: 31.0 (24.6-38.4) Pediatric Reference ranges were obtained from a study by bianka Rosenthal. prepared from 1437 samples obtained at 7 different centers using the same coagulation reagent and instrumentation as [facility]. Currently there are no coagulation studies available worldwide for children to 14 days, and no normal ranges. Heparin therapeutic range (represented by Anti-Factor Xa activity of 0.2 - 0.4 U/mL) corresponds to PTT of 56.6 - 109.0 sec. Performed By: #### 1 [id number] #### [facility] [address] [place] [address] INR Coag (PPP) [Relative time] 1.02 {INR} Invalid Interpretation Code [facility] Comment on above: Result Comment: INR results are specifically intended to assess patients stabilized on long-term Anticoagulation therapy suggested INR???s ???Less Intensive Anticoagulation??? 2.0 ??? 3.0 Conventional Range 3.0 ??? 4.5 Performed By: #### 1 [id number] #### [facility] [address] [place] [address] PT Coag (PPP) [Time] 11.4 second(s) Normal 9.4-12.5 [facility] Comment on above: Result Comment: 15 [...] the same coagulation reagent and instrumentation as [facility]. Currently there are no coagulation studies available worldwide for children to 14 days, and no normal ranges. Performed By: #### 1 [id number] #### [facility] [address] [place] [address] UA with Cult Rflxon 06-21-19 25 Bilirubin Ql (U) Negative Normal Negative [facility] Comment on above: Performed By: #### 4 [id number] #### [facility] [address] [place] [address] Clarity (U) Clear Normal Clear [facility] Comment on above: Performed By: #### 4 [id number] #### [facility] [address] [place] [address] Color (U) Colorless Abnormal Yellow [facility] Comment on above: Result Comment: Micr oscopic readings are only performed on those samples that meet specific criteria set forth by [facility]. Performed By: #### 4 [id number] #### [facility] [address] [place] [address] Glucose Ql (U) Negative Normal Negative [facility] Comment on above: Performed By: #### 4 [id number] #### [facility] [address] [place] [address] Hemoglobin Auto test strip (U) [Mass/Vol] Negative Normal Negative [facility] Comment on above: Performed By: #### 4 [id number] #### [facility] [address] [place] [address] Ketones Auto test strip Ql (U) Negative Normal Negative [facility] Comment on above: Performed By: #### 4 [id number] #### [facility] [address] [place] [address] Leukocyte esterase Auto test strip Ql (U) Negative Normal Negative [facility] Comment on above: Performed By: #### 4 [id number] #### [facility] [address] [place] [address] Nitrite Auto test strip Ql (U) Negative Normal Negative [facility] Comment on above: Performed By: #### 4 [id number] #### [facility] [address] [place] [address] pH (U) 7.0 [pH] Invalid Interpretation Code 5.0-9.0 [facility] Comment on above: Performed By: #### 4 [id number] #### [facility] [address] [place] [address] Protein Ql (U) Negative Normal Negative [facility] Comment on above: Performed By: #### 4 [id number] #### [facility] [address] [place] [address] Specific gravity (U) [Rel density] 1.005 Invalid Interpretation Code 1.005-1.030 [facility] Comment on above: Performed By: #### 4 [id number] #### [facility] [address] [place] [id number] Urobilinogen (U) [Mass/Vol] Negative Normal Negative [facility] Comment on above: Performed By: #### 4 [id number] #### [facility] [address] [place] [address] Type of Urine collection method Clean Catch Normal [facility] Comment on above: Performed By: #### 4 [id number] #### [facility] [address] [place] [address] URINALYSISOrdered By: SYSTEM SYSTEM on 06-21-2024 Bilirubin Ql (U) Negative Normal Negativemg/ dL [facility] UA Auto SS Clarity (U) Clear (06/21/24 11:04 AM) Normal Clear [facility] UA Auto SS Color (U) Colorless 1 *ABN* (06/21/24 11:04 AM) Invalid Interpretation Code [facility] Auto SS Comment on above: Interpretive Data: M icroscopic readings are only performed on those samples that meet specific criteria set forth by [facility]. Glucose Ql (U) Negative Normal Negativemg/ dL [facility]A Auto SS Hemoglobin Auto test strip (U) [Mass/Vol] Negative Normal Negativemg/ dL [facility] Auto SS Ketones Auto test strip Ql (U) Negative Normal Negativemg/ dL [facility] Auto SS Leukocyte esterase Auto test strip Ql (U) Negative Normal NegativeLeu /uL [facility] UA Auto SS Nitrite Auto test strip Ql (U) Negative Normal Negativemg/ dL [facility] UA Auto SS pH (U) 7.0 *NA* (06/21/24 11:04 AM) Invalid Interpretation Code 5.0 - 9.0 [facility]A Auto SS Protein Ql (U) Negative Normal Negativemg/ dL [facility] Auto SS Specific gravity (U) [Rel density] 1.005 *NA* (06/21/24 11:04 AM) Invalid Interpretation Code 1.005 - 1.030 [facility] UA Auto SS Urobilinogen (U) [Mass/Vol] Negative Normal Negativemg/ dL [facility] UA Auto SS URINALYSISOrdered By: Peter Larios on 06-21-2024 UA Spec Desc Clean Catch (06/21/24 11:04 AM) Normal [facility] UA Auto SS XR Chest 2 Viewson [...] mGy = na DAP = na Normal [facility] eGFRon 06-21-2024 eGFR 98 mL/min/1.73 m2 Normal >=59 [facility] Comment on above: Performed By: #### 1 [id number] #### [facility] [address] [place] [address] Provider Letteron 04-18-2024 Provider Letter Provider Letter April 18, 2024 ESTELLA JEFFERY [address] [place] [id number] : 1965 Dear, I am corresponding with [...] Sincerely, Dr. Danni Graham [facility] [address] [place] [id number] Normal [facility] ISTAT XRay CREon 03-15-2024 ISTAT GFR > 60.[address] [facility] Comment on above: Result Comment: PERF ORMED BY: [place] [address] PATHOLOGIST TREKKING GUIDE NALDO SALDIVAR M.D. Performed By: #### I SCRE #### [address] MR prostate wo/w conon 03-15 MR prostate wo/w con [facility] [place] [address] [place] [address] MRI Report Signed Patient: Estella Jeffery MR#: [id number] : 1965 Acct:[id number] Age/Sex: 58 / M ADM Date: 03/15/24 Loc: Room: Type: [facility] Attending Dr: Danni Graham MD [...] Anne Jr., D.O.03/15/2024 3:05 PM Dictation Location: [place] [address] Transcribed By: [facility] 03/15/24 1505 Dictated By: Esdras Anne Jr, DO 03/15/24 1501 Signed By: 03/15/[address] [facility] No Panel InformationOrdered By: Danni Graham on 03-15-2024 Bedside Estimated GFR (eGFR) > 60.0 [facility] Whole blood creatinine measu rementOrdered By: Danni Graham on 03-15-2024 Creatinine [Mass/Vol] 1.0 mg/dL Normal 0.6-1.3 [facility] Comment on above: ER/ESD physician is notified/shown all ISTAT results.Critical values may be confirmed by laboratory testing ifdeemed necessary by ER attending doctor. Result Comment: ER/E SD physician is notified/shown all ISTAT results. Critical values may be confirmed by laboratory testing if deemed necessary by ER attending doctor. Performed By: #### I SCRE #### [facility] [address] RITO by IFAon 10-25-2022 Antinuclear Antibodies, IFA Negative Normal [facility] Comment on above: Result Comment: Nega tive <1:80 Borderline 1:80 Positive >1:80 ICAP nomenclature: AC-0 For more information about Hep-2 cell patterns use ANApatterns.org, the official website for the International Consensus on Antinuclear Antibody (RITO) Patterns (ICAP). Performed By: #### T 7, TSH, CMP, LISANDRA, LIPA, LIPID #### [facility] [address] [place] [address] Dr. Janell Marquez ANTISTREPTOLYSIN O AB (ASO)o n 10-22-2022 Antistreptolysin O Ab 45.9 IU/mL Normal 0.0-200.0 [facility] Comment on above: Performed By: #### A SOAB #### [facility] [address] [place] [address] Dr. Janell Marquez RHEUMATOID FACTORon 10-23-19 RA Latex Turbid. <10.0 Normal <14.0 [facility] Comment on above: Performed By: #### R F #### [facility] [address] [place] [address] Dr. Janell Marquez CBC AUTO DIFFon 10-21-2022 BASO # 0.0 103/ul Normal 0.0-0.1 [facility] Comment on above: Performed By: #### T 7, TSH, CMP, LISANDRA, LIPA, LIPID #### [facility] [address] [place] [address] Dr. Janell Marquez Basophils/100 WBC (Bld) 0.4 % Normal 0.2-2.0 [facility] Comment on above: Performed By: #### T 7, TSH, CMP, LISANDRA, LIPA, LIPID #### [facility] [address] [place] [address] Dr. Janell Marquez EO # 0.0 103/ul Normal 0.0-0.7 [facility] Comment on above: Performed By: #### T 7, TSH, CMP, LISANDRA, LIPA, LIPID #### [facility] [address] [place] [address] Dr. Janell Marquez Eosinophils/100 WBC (Bld) 0.7 % Critically low 0.9-7.0 [facility] Comment on above: Performed By: #### T 7, TSH, CMP, LISANDRA, LIPA, LIPID #### [facility] [address] [place] [address] Dr. Janell Marquez Erythrocyte distribution width (RBC) [Ratio] 16.1 % Critically high 11.0-15.0 [facility] Comment on above: Performed By: #### T 7, TSH, CMP, LISANDRA, LIPA, LIPID #### [facility] [address] [place] [address] Dr. Janell Marquez Hematocrit (Bld) [Volume fraction] 48.8 % Normal 42.0-54.0 [facility] Comment on above: Performed By: #### T 7, TSH, CMP, LISANDRA, LIPA, LIPID #### [facility] [address] [place] [address] Dr. Janell Marquez Hemoglobin (Bld) [Mass/Vol] 15.3 g/dL Normal 14.0-18.0 [facility] Comment on above: Performed By: #### T 7, TSH, CMP, LISANDRA, LIPA, LIPID #### [facility] [address] [place] [address] Dr. Janell Marquez IG # 0.02 10e3/ul Normal 0.00-0.03 [facility] Comment on above: Performed By: #### T 7, TSH, CMP, LISANDRA, LIPA, LIPID #### [facility] [address] [place] [address] Dr. Janell Marquez IG % 0.4 % Normal 0.0-0.5 [facility] Comment on above: Performed By: #### T 7, TSH, CMP, LISANDRA, LIPA, LIPID #### [facility] [address] [place] [address] Dr. Janell Marquez LYMPH # 1.3 103/ul Normal 1.2-3.8 [facility] Comment on above: Performed By: #### T 7, TSH, CMP, LISANDRA, LIPA, LIPID #### [facility] [address] [place] [address] Dr. Janell Marquez Lymphocytes/100 WBC (Bld) 29.0 % Normal 20.5-60.0 [facility] Comment on above: Performed By: #### T 7, TSH, CMP, LISANDRA, LIPA, LIPID #### [facility] [address] [place] [address] Dr. Janell Marquez MANUAL DIFF REQ NO Normal [facility] Comment on above: Performed By: #### T 7, TSH, CMP, LISANDRA, LIPA, LIPID #### [facility] [address] [place] [address] Dr. Janell Marquez MCH (RBC) [Entitic mass] 23.5 pg Critically low 25.9-34.0 [facility] Comment on above: Performed By: #### T 7, TSH, CMP, LISANDRA, LIPA, LIPID #### [facility] [address] [place] [address] Dr. Janell Marquez MCHC (RBC) [Mass/Vol] 31.4 g/dL Normal 29.9-35.2 [facility] Comment on above: Performed By: #### T 7, TSH, CMP, LISANDRA, LIPA, LIPID #### [facility] [address] [place] [address] Dr. Janell Marquez MCV (RBC) [Entitic vol] 74.8 fL Critically low 80.0-94.0 [facility] Comment on above: Performed By: #### T 7, TSH, CMP, LISANDRA, LIPA, LIPID #### [facility] [address] [place] [address] Dr. Janell Marquez MONO # 0.3 103/ul Normal 0.3-0.8 [facility] Comment on above: Performed By: #### T 7, TSH, CMP, LISANDRA, LIPA, LIPID #### [facility] [address] [place] [address] Dr. Janell Marquez Monocytes/100 WBC (Bld) 7.4 % Normal 1.7-12.0 [facility] Comment on above: Performed By: #### T 7, TSH, CMP, LISANDRA, LIPA, LIPID #### [facility] [address] [place] [address] Dr. Janell Marquez NEUT # 2.9 103/ul Normal 1.4-6.5 [facility] Comment on above: Performed By: #### T 7, TSH, CMP, LISANDRA, LIPA, LIPID #### [facility] [address] [place] [address] Dr. Janell Marquez Neutrophils/100 WBC (Bld) 62.1 % Normal 43.0-75.0 [facility] Comment on above: Performed By: #### T 7, TSH, CMP, LISANDRA, LIPA, LIPID #### [facility] [address] [place] [address] [address] Janell Marquez Platelet mean volume (Bld) [Entitic vol] 9.3 fL Critically low 9.5-13.5 [facility] Comment on above: Performed By: #### T 7, TSH, CMP, LISANDRA, LIPA, LIPID #### [facility] [address] [place] [address] [address] Janell Marquez PLT 203 103/ul Normal 150-450 [facility] Comment on above: Performed By: #### T 7, TSH, CMP, LISANDRA, LIPA, LIPID #### [facility] [address] [place] [address] Dr. Janell Marquez RBC 6.52 106/ul Critically high 4.70-6.10 [facility] Comment on above: Performed By: #### T 7, TSH, CMP, LISANDRA, LIPA, LIPID #### [facility] [address] [place] [address] Dr. Janell Marquez WBC 4.6 103/ul Normal 4.0-11.0 [facility] Comment on above: Performed By: #### T 7, TSH, CMP, LISANDRA, LIPA, LIPID #### [facility] [address] [place] [address] Dr. Janell Marquez CRPon 10-21-2022 CRP [Mass/Vol] mg/L Normal <=1.[address] [facility] Comment on above: Performed By: #### T 7, TSH, CMP, LISANDRA, LIPA, LIPID #### [facility] [address] [place] [address] [address] Janell Marquez SED RATE WESTERGRENon 2022 SED RATE 30 mm/hr Critically high <=20 [facility] Comment on above: Performed By: #### T 7, TSH, CMP, LISANDRA, LIPA, LIPID #### [facility] [address] [place] [address] Dr. Janell Marquez URIC ACID SERUMon 10-21-2022 Urate [Mass/Vol] 4.3 mg/dL Normal 3.5-7.2 [facility] Comment on above: Performed By: #### T 7, TSH, CMP, LISANDRA, LIPA, LIPID #### [facility] [address] [place] [address] [address] Janell Marquez CSF MANUAL DIFFon 10-12-2022 Diff Total, CSF 57 cells counted [facility] Lymph%, CSF 91 % High 50 - 90 % [facility] [place]%, CSF 9 % Low 10 - 50 % [facility] ic Cell count panel (CSF)on Clarity (CSF) Clear Clear [facility] Clarity (Unsp spec) Not Indicated Clear [facility] Color (CSF) Colorless Colorless [facility] Color (Spun CSF) Not Indicated Colorless [facility] CSF Tube Number Tube 1 [facility] RBC Manual cnt (CSF) [#/Vol] 3 cells/uL 0 - 5 cells/uL [facility] WBC Manual cnt (CSF) [#/Vol] 1 cells/uL 0 - 5 cells/uL [facility] GLUCOSE CSFon 10-12-2022 Glucose (CSF) [Mass/Vol] 57 mg/dL 40 - 70 mg/dL [facility] PROTEIN CSFon 10-12-2022 Protein (CSF) [Mass/Vol] 32 mg/dL 15 - 45 mg/dL [facility] TOURTELLOTTE BLOODon 10-12- 023 [facility] ic ALLIED HEALTHon 05-07-2022 ALLIED HEALTH HNO ID: [id number] Author: Nicole Girard, trademark affixer Service: Radiology Author Type: Pricing Lead Type: Allied Health Filed: 05/07/2022 1:54 PM [...] DATA: Not applicable SIGNED BY: Nicole Huffman, trademark affixer May 07, 2022 1:31 PM [facility] MRI 3D POST PROCESSINGon MRI 3D POST PROCESSING * * *Final Report* * * DATE OF EXAM: May 07 2022 1:47PM [facility] 0280 - MRI 3D POST PROCESSING / PROCEDURE REASON: Cognitive changes * * * * Physician Interpretation * * * * EXAMINATION: MRI BRAIN WO IVCON, MRI 3D POST PROCESSING CLINICAL HISTORY: Cognitive changes TECHNIQUE: Axial FLORIDALMA FLAIR, FLORIDALMA T2, diffusion and susceptibility weighted imaging without contrast, using the ADNI dementia protocol and 3-D post-processing using the [employer] software at an independent workstation with concurrent physician supervision and images were created, reviewed and archived. MQ: [id number] COMPARISON: None RESULT: QUALITATIVE: Acute Intracranial Process: None. Chronic Intracranial Process: Mild microvascular ischemic change.. Age related white matter changes ([facility]) rating: White matter lesions: 1 [...] = Focal Lesions 2 = Beginning of [place] 3 = Diffuse Involvement of Entire Region [...] results from the analysis charts for details. Broom Worker: PSCB Transcribe Date/Time: May 07 2022 2:51P Dictated by : MANISH PRICE MD This examination was interpreted and the report reviewed and electronically signed by: MANISH PRICE MD on May 07 2022 3:06PM EST [id number] CN Normal [facility] MRI BRAIN WO IVCONon -18-2 022 MRI BRAIN WO IVCON * * *Final Report* * * DATE OF EXAM: May 07 2022 1:47PM [facility] 0294 - MRI BRAIN WO IVCON / PROCEDURE REASON: Cognitive changes * * * * Physician Interpretation * * * * EXAMINATION: MRI BRAIN WO IVCON, MRI 3D POST PROCESSING CLINICAL HISTORY: Cognitive changes TECHNIQUE: Axial FLORIDALMA FLAIR, FLORIDALMA T2, diffusion and susceptibility weighted imaging without contrast, using the ADNI dementia protocol and 3-D post-processing using the [employer] software at an independent workstation with concurrent [...] = Focal Lesions 2 = Beginning of [place] 3 = Diffuse Involvement of Entire Region [...] impairment, and elderly controls. Neuroimage 43;59 (2008). Wahlguanakito et al. A New Rating Scale for Age-Related White Matter Changes Applicable to MRI and CT. Stroke. 32:1318 (2001). * Asymmetry index defined as difference between left and right volumes divided by mean or [(L-R/Mean) x 100] (%). Age-matched reference charts measure total hippocampal volume (% of intracranial volume). See results from the analysis charts for details. Broom Worker: MARISELA Transcribe Date/Time: May 07 2022 2:51P Dictated by : MANISH PRICE MD This examination was interpreted and the report reviewed and electronically signed by: MANISH PRICE MD on May 07 2022 3:06PM EST [id number] [facility] No Panel Informationon 05-07 [facility] MRI BRAIN WO W CONon 022 [...] by: LUCIE TOWNSEND Date: 2022-01-21 17:28 Normal [facility] US CAROTID ART BILon 022 [...] LUCIE TOWNSEND Date: 2022-01-21 17:18 Normal [facility] H PYLORI ANTIBODY IGGon 12-19 H. PYLORI IGG ABS 0.72 Index Value Normal 0.00-0.79 [facility] Comment on above: Result Comment: Nega tive <0.80 Equivocal 0.80 - 0.89 Positive >0.89 Performed By: #### H PYLLC #### [facility] [address] [place] [address] Dr. Janell Marquez INSULINon 01-13-2022 Insulin 15.8 uIU/mL Normal 2.6-24.9 [facility] Comment on above: Performed By: #### T 7, TSH, CMP, LISANDRA, LIPA, LIPID #### [facility] [address] [place] [address] Dr. Janell Marquez VIT D 25-OH LABCORPon 2021 Vitamin D, 25-Hydroxy 29.7 ng/mL Critically low 30.0-100.0 [facility] Comment on above: Result Comment: Nelsy min D deficiency has been defined by the [place] [employer] and an Endocrine Society practice guideline as a level of serum 25-OH vitamin D less than 20 ng/mL (1,2). The Endocrine Society went on to further define vitamin D insufficiency as a level between 21 and 29 ng/mL (2). 1. IOM ([place] [employer]). 2010. Dietary reference intakes for calcium and D. [place]: The National Academies Press. 2. Kevin MF, Mey LOPEZ, Bharat SPENCER, et al. Evaluation, treatment, and prevention of vitamin D deficiency: an Endocrine Society clinical practice guideline. JCEM. 2010; 96(7):1911-30. Performed By: #### T 7, TSH, CMP, LISANDRA, LIPA, LIPID #### [facility] [address] [place] [address] Dr. Janell Marquez AMMONIAon 01-12-2022 Ammonia (P) [Mass/Vol] ug/dL Critically low 11-32 [facility] Comment on above: Performed By: #### T 7, TSH, CMP, LISANDRA, LIPA, LIPID #### [facility] [address] [address] [address] Janell Marquez AMYLASEon 01-12-2022 Amylase [Catalytic activity/Vol] 49 U/L Normal 25-115 [facility] Comment on above: Performed By: #### T 7, TSH, CMP, LISANDRA, LIPA, LIPID #### [facility] [address] [address] [address] Janell Marquez CBC AUTO DIFFon 01-12-2022 BASO # 0.0 103/ul Normal 0.0-0.1 [facility] Comment on above: Performed By: #### T 7, TSH, CMP, LISANDRA, LIPA, LIPID #### [facility] [address] [address] [address] Janell Marquez Basophils/100 WBC (Bld) 0.2 % Normal 0.2-2.0 [facility] Comment on above: Performed By: #### T 7, TSH, CMP, LISANDRA, LIPA, LIPID #### [facility] [address] [place] [address] Dr. Janell Marquez EO # 0.0 103/ul Normal 0.0-0.7 [facility] Comment on above: Performed By: #### T 7, TSH, CMP, LISANDRA, LIPA, LIPID #### [facility] [address] [place] [address] Dr. Janell Marquez Eosinophils/100 WBC (Bld) 0.3 % Critically low 0.9-7.0 [facility] Comment on above: Performed By: #### T 7, TSH, CMP, LISANDRA, LIPA, LIPID #### [facility] [address] [place] [address] Dr. Janell Marquez Erythrocyte distribution width (RBC) [Ratio] 16.0 % Critically high 11.0-15.0 [facility] Comment on above: Performed By: #### T 7, TSH, CMP, LISANDRA, LIPA, LIPID #### [facility] [address] [place] [address] Dr. Janell Marquez Hematocrit (Bld) [Volume fraction] 46.8 % Normal 42.0-54.0 [facility] Comment on above: Performed By: #### T 7, TSH, CMP, LISANDRA, LIPA, LIPID #### [facility] [address] [place] [address] Dr. Janell Marquez Hemoglobin (Bld) [Mass/Vol] 14.9 g/dL Normal 14.0-18.0 [facility] Comment on above: Performed By: #### T 7, TSH, CMP, LISANDRA, LIPA, LIPID #### [facility] [address] [place] [address] Dr. Janell Marquez IG # 0.01 10e3/ul Normal 0.00-0.03 [facility] Comment on above: Performed By: #### T 7, TSH, CMP, LISANDRA, LIPA, LIPID #### [facility] [address] [place] [address] Dr. Janell Marquez IG % 0.2 % Normal 0.0-0.5 [facility] Comment on above: Performed By: #### T 7, TSH, CMP, LISANDRA, LIPA, LIPID #### [facility] [address] [place] [address] Dr. Janell Marquez LYMPH # 1.0 103/ul Critically low 1.2-3.[address] [facility] Comment on above: Performed By: #### T 7, TSH, CMP, LISANDRA, LIPA, LIPID #### [facility] [address] [place] [address] Dr. Janell Marquez Lymphocytes/100 WBC (Bld) 16.2 % Critically low 20.5-60.0 [facility] Comment on above: Performed By: #### T 7, TSH, CMP, LISANDRA, LIPA, LIPID #### [facility] [address] [place] [address] Dr. Janell Marquez MANUAL DIFF REQ NO Normal [facility] Comment on above: Performed By: #### T 7, TSH, CMP, LISANDRA, LIPA, LIPID #### [facility] [address] [place] [address] Dr. Janell Marquez MCH (RBC) [Entitic mass] 23.9 pg Critically low 25.9-34.0 [facility] Comment on above: Performed By: #### T 7, TSH, CMP, LISANDRA, LIPA, LIPID #### [facility] [address] [place] [address] Dr. Janell Marquez MCHC (RBC) [Mass/Vol] 31.8 g/dL Normal 29.9-35.2 [facility] Comment on above: Performed By: #### T 7, TSH, CMP, LISANDRA, LIPA, LIPID #### [facility] [address] [place] [address] Dr. Janell Marquez MCV (RBC) [Entitic vol] 75.0 fL Critically low 80.0-94.0 [facility] Comment on above: Performed By: #### T 7, TSH, CMP, LISANDRA, LIPA, LIPID #### [facility] [address] [place] [address] Dr. Janell Marquez MONO # 0.4 103/ul Normal 0.3-0.8 [facility] Comment on above: Performed By: #### T 7, TSH, CMP, LISANDRA, LIPA, LIPID #### [facility] [address] [address] [address] Janell Marquez Monocytes/100 WBC (Bld) 6.0 % Normal 1.7-12.0 [facility] Comment on above: Performed By: #### T 7, TSH, CMP, LISANDRA, LIPA, LIPID #### [facility] [address] [place] [address] Dr. Janell Marquez NEUT # 4.5 103/ul Normal 1.4-6.5 [facility] Comment on above: Performed By: #### T 7, TSH, CMP, LISANDRA, LIPA, LIPID #### [facility] [address] [place] [address] Dr. Janell Marquez Neutrophils/100 WBC (Bld) 77.1 % Critically high 43.0-75.0 [facility] Comment on above: Performed By: #### T 7, TSH, CMP, LISANDRA, LIPA, LIPID #### [facility] [address] [place] [address] Dr. Janell Marquez Platelet mean volume (Bld) [Entitic vol] 9.3 fL Critically low 9.5-13.5 [facility] Comment on above: Performed By: #### T 7, TSH, CMP, LISANDRA, LIPA, LIPID #### [facility] [address] [place] [address] Dr. Janell Marquez PLT 202 103/ul Normal 150-450 [facility] Comment on above: Performed By: #### T 7, TSH, CMP, LISANDRA, LIPA, LIPID #### [facility] [address] [place] [address] Dr. Janell Marquez RBC 6.24 106/ul Critically high 4.70-6.10 [facility] Comment on above: Performed By: #### T 7, TSH, CMP, LISANDRA, LIPA, LIPID #### [facility] [address] [place] [address] Dr. Janell Marquez WBC 5.9 103/ul Normal 4.0-11.0 [facility] Comment on above: Performed By: #### T 7, TSH, CMP, LISANDRA, LIPA, LIPID #### [facility] [address] [address] [address] Janell Marquez FREE THYROXINE INDEX T7on FTI 3.14 Normal 1.30-4.50 [facility] Comment on above: Performed By: #### T 7, TSH, CMP, LISANDRA, LIPA, LIPID #### [facility] [address] [address] [address] Janell Marquez T3U 32.0 % Critically low 33.0-40.[address] [facility] Comment on above: Performed By: #### T 7, TSH, CMP, LISANDRA, LIPA, LIPID #### [facility] [address] [address] [address] Janell Marquez T4 [Mass/Vol] 9.80 ug/dL Normal 4.50-12.10 [facility] Comment on above: Performed By: #### T 7, TSH, CMP, LISANDRA, LIPA, LIPID #### [facility] [address] [address] [address] Janell Marquez GLYCOHEMOGLOBIN A1Con 2021 ADA RECOMMENDATION SEE BELOW Normal [facility] Comment on above: Result Comment: ADA RECOMMENDED LIMIT 4.0 - 6.0 ADA THERAPEUTIC TARGET < 7.0 ACTION SUGGESTED > 7.0 Performed By: #### A 1C #### [facility] [address] [address] [address] Janell Marquez Glucose [Mass/Vol] 120 mg/dL Normal [facility] Comment on above: Performed By: #### A 1C #### [facility] [address] [place] [address] Dr. Janell Marquez HbA1c (Bld) [Mass fraction] 5.8 % Normal 4.5-6.2 [facility] Comment on above: Performed By: #### A 1C #### [facility] [address] [address] [address] Janell Marquez IRONon 01-12-2022 Iron [Mass/Vol] 70.0 ug/dL Normal 65.0-175.0 [facility] Comment on above: Performed By: #### T 7, TSH, CMP, LISANDRA, LIPA, LIPID #### [facility] [address] [address] [address] Janell Marquez LIPASEon 01-12-2022 Lipase [Catalytic activity/Vol] 72.0 U/L Critically low 73.0-393.0 [facility] Comment on above: Performed By: #### T 7, TSH, CMP, LISANDRA, LIPA, LIPID #### [facility] [address] [place] [address] Dr. Janell Marquez LIPID PROFILEon 01-12-2022 CHOL-HDL RATIO NORM SEE BELOW Normal [facility] Comment on above: Result Comment: 3.3 - 4.4 LOW RISK 4.4 - 7.1 AVERAGE RISK 7.1 - 11.0 MODERATE RISK >11.0 HIGH RISK Performed By: #### T 7, TSH, CMP, LISANDRA, LIPA, LIPID #### [facility] [address] [place] [address] Dr. Janell Marquez Cholesterol [Mass/Vol] 220 mg/dL Critically high <=200 [facility] Comment on above: Performed By: #### T 7, TSH, CMP, LISANDRA, LIPA, LIPID #### [facility] [address] [place] [address] Dr. Janell Maqruez Cholesterol in HDL [Mass/Vol] 47 mg/dL Normal 40-60 [facility] Comment on above: Performed By: #### T 7, TSH, CMP, LISANDRA, LIPA, LIPID #### [facility] [address] [place] [address] Dr. Janell Marquez Cholesterol in LDL [Mass/Vol] 157.4 mg/dL Normal [facility] Comment on above: Performed By: #### T 7, TSH, CMP, LISANDRA, LIPA, LIPID #### [facility] [address] [place] [address] Dr. Janell Marquez Cholesterol.total/Cho lesterol in HDL [Mass ratio] 4.7 {ratio} Normal [facility] Comment on above: Performed By: #### T 7, TSH, CMP, LISANDRA, LIPA, LIPID #### [facility] [address] [address] [address] Janell Marquez HDL NORMAL > or = 60 mg/dl - LOW CARDIOVASCULAR RISK <40 mg/dl - HIGH CARDIOVASCULAR RISK Normal [facility] Comment on above: Performed By: #### T 7, TSH, CMP, LISANDRA, LIPA, LIPID #### [facility] [address] [address] [address] Janell Marquez LDL CALC NORMAL SEE BELOW Normal [facility] Comment on above: Result Comment: <100 mg/dl OPTIMAL 100 - 129 mg/dl NEAR OR ABOVE OPTIMAL 130 - 159 mg/dl BORDERLINE HIGH 160 - 189 mg/dl HIGH >190 mg/dl VERY HIGH Performed By: #### T 7, TSH, CMP, LISANDRA, LIPA, LIPID #### [facility] [address] [address] [address] Janell Marquez Triglyceride [Mass/Vol] 78 mg/dL Normal <=150 [facility] Comment on above: Performed By: #### T 7, TSH, CMP, LISANDRA, LIPA, LIPID #### [facility] [address] [address] [address] Janell Marquez VLDL CALC 15.6 mg/dL Normal [facility] Comment on above: Performed By: #### T 7, TSH, CMP, LISANDRA, LIPA, LIPID #### [facility] [address] [place] [address] Dr. Janell Marquez PROF 14(COMP METB)on 022 Albumin [Mass/Vol] 3.5 g/dL Normal 3.4-5.0 [facility] Comment on above: Performed By: #### T 7, TSH, CMP, LISANDRA, LIPA, LIPID #### [facility] [address] [address] [address] Janell Marquez Albumin/Globulin [Mass ratio] 0.9 {ratio} Normal [facility] Comment on above: Performed By: #### T 7, TSH, CMP, LISANDRA, LIPA, LIPID #### [facility] [address] [address] [address] Janell Marquez ALP [Catalytic activity/Vol] 69 U/L Normal 46-116 [facility] Comment on above: Performed By: #### T 7, TSH, CMP, LISANDRA, LIPA, LIPID #### [facility] [address] [address] [address] Janell Marquez ALT [Catalytic activity/Vol] 19 U/L Normal 16-63 [facility] Comment on above: Performed By: #### T 7, TSH, CMP, LISANDRA, LIPA, LIPID #### [facility] [address] [address] [address] Janell Marquez Anion gap [Moles/Vol] 12.1 mmol/L Normal [facility] Comment on above: Performed By: #### T 7, TSH, CMP, LISANDRA, LIPA, LIPID #### [facility] [address] [place] [address] Dr. Janell Marquez AST [Catalytic activity/Vol] 15 U/L Normal 15-37 [facility] Comment on above: Performed By: #### T 7, TSH, CMP, LISANDRA, LIPA, LIPID #### [facility] [address] [address] [address] Janell Marquez Bilirubin [Mass/Vol] 0.8 mg/dL Normal 0.2-1.0 [facility] Comment on above: Performed By: #### T 7, TSH, CMP, LISANDRA, LIPA, LIPID #### [facility] [address] [place] [address] Dr. Janell Marquez Calcium [Mass/Vol] 8.5 mg/dL Normal 8.5-10.1 [facility] Comment on above: Performed By: #### T 7, TSH, CMP, LISANDRA, LIPA, LIPID #### [facility] [address] [address] [address] Janell Marquez Chloride [Moles/Vol] 105 mmol/L Normal 98-107 [facility] Comment on above: Performed By: #### T 7, TSH, CMP, LISANDRA, LIPA, LIPID #### [facility] [address] [address] [address] Janell Marquez CO2 [Moles/Vol] 28.0 mmol/L Normal 21.0-32.0 [facility] Comment on above: Performed By: #### T 7, TSH, CMP, LISANDRA, LIPA, LIPID #### [facility] [address] [place] [address] Dr. Janell Maqruez Creatinine [Mass/Vol] 1.11 mg/dL Normal 0.70-1.30 [facility] Comment on above: Performed By: #### T 7, TSH, CMP, LISANDRA, LIPA, LIPID #### [facility] [address] [place] [address] Dr. Janell Marquez EGFR-AF EMIRATI >60 Normal >=60 [facility] Comment on above: Performed By: #### T 7, TSH, CMP, LISANDRA, LIPA, LIPID #### [facility] [address] [place] [address] Dr. Janell Marquez EGFR-NON AF EMIRATI >60 Normal >=60 [facility] Comment on above: Performed By: #### T 7, TSH, CMP, LISANDRA, LIPA, LIPID #### [facility] [address] [place] [address] Dr. Janell Marquez Globulin (S) [Mass/Vol] 3.7 g/dL Normal [facility] Comment on above: Performed By: #### T 7, TSH, CMP, LISANDRA, LIPA, LIPID #### [facility] [address] [place] [address] Dr. Janell Marquez Glucose [Mass/Vol] 115 mg/dL Critically high 74-106 [facility] Comment on above: Performed By: #### T 7, TSH, CMP, LISANDRA, LIPA, LIPID #### [facility] [address] [place] [address] Dr. Janell Marquez Potassium [Moles/Vol] 4.1 mmol/L Normal 3.5-5.1 [facility] Comment on above: Performed By: #### T 7, TSH, CMP, LISANDRA, LIPA, LIPID #### [facility] [address] [place] [address] Dr. Janell Marquez Protein [Mass/Vol] 7.2 g/dL Normal 6.4-8.2 [facility] Comment on above: Performed By: #### T 7, TSH, CMP, LISANDRA, LIPA, LIPID #### [facility] [address] [place] [address] Dr. Janell Marquez Sodium [Moles/Vol] 141 mmol/L Normal 136-145 [facility] Comment on above: Performed By: #### T 7, TSH, CMP, LISANDRA, LIPA, LIPID #### [facility] [address] [place] [address] Dr. Janell Marquez Urea nitrogen [Mass/Vol] 16.0 mg/dL Normal 7.0-18.0 [facility] Comment on above: Performed By: #### T 7, TSH, CMP, LISANDRA, LIPA, LIPID #### [facility] [address] [place] [address] Dr. Janell Marquez Urea nitrogen/Creatinine [Mass ratio] 14.4 mg/mg Normal [facility] Comment on above: Performed By: #### T 7, TSH, CMP, LISANDRA, LIPA, LIPID #### [facility] [address] [place] [address] Dr. Janell Marquez TSHon 01-12-2022 TSH 1.412 uIU/mL Normal 0.358-3.740 [facility] Comment on above: Performed By: #### T 7, TSH, CMP, LISANDRA, LIPA, LIPID #### [facility] [address] [place] [address] Dr. Janell Marquez VIT B12 AND FOLATEon 022 Cobalamin (Vitamin B12) [Mass/Vol] 411.0 pg/mL Normal 193.0-986.0 [facility] Comment on above: Performed By: #### T 7, TSH, CMP, LISANDRA, LIPA, LIPID #### [facility] [address] [place] [address] Dr. Janell Marquez FOLATE 11.10 ng/mL Normal 8.60-58.90 [facility] Comment on above: Performed By: #### T 7, TSH, CMP, LISANDRA, LIPA, LIPID #### [facility] [address] [address] [address] Janell Marquez BASIC METABOLIC PANELon 0 Calcium [Mass/Vol] 8.3 mg/dL Low 8.6-10.3 [facility] Comment on above: Order Comment: No: D o not add to previous draw Performed By: #### 0 0071 #### [facility] [address] [place] [address], [place] Chloride [Moles/Vol] 104 mmol/L Normal 98-107 [facility] Comment on above: Order Comment: No: D o not add to previous draw Performed By: #### 0 0071 #### [facility] [address] [place] [address], [place] CO2 [Moles/Vol] 29 mmol/L Normal 21-31 [facility] Comment on above: Order Comment: No: D o not add to previous draw Performed By: #### 0 0071 #### [facility] [address] [place] [address], [place] Creatinine [Mass/Vol] 0.81 mg/dL Normal 0.70-1.30 [facility] Comment on above: Order Comment: No: D o not add to previous draw Performed By: #### 0 [id number] #### [facility] [address] [place] [address], [place] GFR/1.73 sq M.predicted among blacks MDRD (S/P/Bld) [Vol rate/Area] mL/min/{1.73_m2} Normal >60 [facility] Comment on above: Order Comment: No: D o not add to previous draw Performed By: #### 0 [id number] #### [facility] [address] [place] [address], [place] GFR/1.73 sq M.predicted among non-blacks MDRD (S/P/Bld) [Vol rate/Area] mL/min/{1.73_m2} Normal >60 [facility] Comment on above: Order Comment: No: D o not add to previous draw Performed By: #### 0 [id number] #### [facility] [address] [place] [address], [place] Glucose [Mass/Vol] 144 mg/dL High 70-[address] [facility] Comment on above: Order Comment: No: D o not add to previous draw Performed By: #### 0 [id number] #### [facility] [address] [place] [address], [facility] Potassium [Moles/Vol] 3.6 mmol/L Normal 3.5-5.1 [facility] Comment on above: Order Comment: No: D o not add to previous draw Performed By: #### 0 [id number] #### [facility] [address] [place] [address], [place] Sodium [Moles/Vol] 139 mmol/L Normal 136-[address] [facility] Comment on above: Order Comment: No: D o not add to previous draw Performed By: #### 0 [id number] #### [facility] [address] [place] [address], [facility] Urea nitrogen [Mass/Vol] 9 mg/dL Normal 7-25 [facility] Comment on above: Order Comment: No: D o not add to previous draw Performed By: #### 0 [id number] #### [facility] [address] [place] [address], [facility] CBC COMPLETE BLOOD COUNTon 0 - Erythrocyte distribution width (RBC) [Ratio] 14.6 % Normal 11.5-15.0 [facility] Comment on above: Order Comment: No: D o not add to previous draw Performed By: #### 0 [id number] #### [facility] [address] [place] [address], [facility] Hematocrit (Bld) [Volume fraction] 38.8 % Low 39.0-50.0 [facility] Comment on above: Order Comment: No: D o not add to previous draw Performed By: #### 0 [id number] #### [facility] [address] [facility] [place] [address], [facility] Hemoglobin (Bld) [Mass/Vol] 12.1 g/dL Low 13.0-17.0 [facility] Comment on above: Order Comment: No: D o not add to previous draw Performed By: #### 0 [id number] #### [facility] [address] [facility] [place] [address], [facility] MCH (RBC) [Entitic mass] 23.7 pg Low 27.0-33.0 [facility] Comment on above: Order Comment: No: D o not add to previous draw Performed By: #### 0 [id number] #### [facility] [address] MCHC (RBC) [Mass/Vol] 31.2 g/dL Low 32.0-35.0 [facility] Comment on above: Order Comment: No: D o not add to previous draw Performed By: #### 0 [id number] #### [facility] [address] [facility] [place] [address], [facility] MCV (RBC) [Entitic vol] 75.9 fL Low 82.0-98.0 [facility] Comment on above: Order Comment: No: D o not add to previous draw Performed By: #### 0 [id number] #### [facility] [address] Nucleated RBC/100 WBC (Bld) [Ratio] 0 % Normal 0-0 [facility] Comment on above: Order Comment: No: D o not add to previous draw Performed By: #### 0 [id number] #### [facility] [place] [address] [facility] [place] [address], [facility] PLAT CNT 182 10*3/uL Normal 150-400 [facility] Comment on above: Order Comment: No: D o not add to previous draw Performed By: #### 0 0071 #### [facility] [address] [place] [address], [facility] RBC (Bld) [#/Vol] 5.11 10*6/uL Normal 4.20-5.70 The [facility] Comment on above: Order Comment: No: D o not add to previous draw Performed By: #### 0 0071 #### [facility] [address] [place] [address], [place] WBC (Bld) [#/Vol] 3.64 10*3/uL Low 4.00-10.60 The [facility] Comment on above: Order Comment: No: D o not add to previous draw Performed By: #### 0 0071 #### [facility] [address] [place] [address], [place] MAGNESIUM BLOODon 07-26-2020 Magnesium [Mass/Vol] 1.8 mg/dL Low 1.9-2.7 [facility] Comment on above: Order Comment: No: D o not add to previous draw Performed By: #### 1 69, 17474 #### [facility] [address] [place] [address], [facility] BASIC METABOLIC PANELon Calcium [Mass/Vol] 8.4 mg/dL Low 8.6-10.[address] [facility] Comment on above: Order Comment: No: D o not add to previous draw Performed By: #### 1 69, 20366 #### [facility] [address] [place] [address], [place] Chloride [Moles/Vol] 104 mmol/L Normal 98-107 [facility] Comment on above: Order Comment: No: D o not add to previous draw Performed By: #### 1 69, 26340 #### [facility] [address] [place] [address], [place] CO2 [Moles/Vol] 27 mmol/L Normal 21-31 The [facility] Comment on above: Order Comment: No: D o not add to previous draw Performed By: #### 1 69, 78308 #### [facility] [address] [place] [address], [facility] Creatinine [Mass/Vol] 0.83 mg/dL Normal 0.70-1.30 [facility] Comment on above: Order Comment: No: D o not add to previous draw Performed By: #### 1 69, 95966 #### [facility] [address] [place] [address], [place] GFR/1.73 sq M.predicted among blacks MDRD (S/P/Bld) [Vol rate/Area] mL/min/{1.73_m2} Normal >60 [facility] Comment on above: Order Comment: No: D o not add to previous draw Performed By: #### 1 69, 59759 #### [facility] [address] [place] [id number], [facility] GFR/1.73 sq M.predicted among non-blacks MDRD (S/P/Bld) [Vol rate/Area] mL/min/{1.73_m2} Normal >60 [facility] Comment on above: Order Comment: No: D o not add to previous draw Performed By: #### 1 69, 66011 #### [facility] [address] [place] [address], [facility] Glucose [Mass/Vol] 162 mg/dL High 70-100 [facility] Comment on above: Order Comment: No: D o not add to previous draw Performed By: #### 1 69, 85655 #### [facility] [address] [place] [id number], [place] Potassium [Moles/Vol] 3.4 mmol/L Low 3.5-5.1 [facility] Comment on above: Order Comment: No: D o not add to previous draw Performed By: #### 1 69, 94691 #### [facility] [address] [place] [address], [facility] Sodium [Moles/Vol] 137 mmol/L Normal 136-[address] [facility] Comment on above: Order Comment: No: D o not add to previous draw Performed By: #### 1 0070, 61774 #### [facility] [address] [place] [id number], [facility] Urea nitrogen [Mass/Vol] 18 mg/dL Normal 7-25 [facility] Comment on above: Order Comment: No: D o not add to previous draw Performed By: #### 1 0, 35646 #### [facility] [address] [place] [address], [facility] CBC COMPLETE BLOOD COUNTon 0 - Erythrocyte distribution width (RBC) [Ratio] 15.2 % High 11.5-15.0 [facility] Comment on above: Order Comment: No: D o not add to previous draw Performed By: #### 0 0071 #### [facility] [address] [place] [address], [facility] Hematocrit (Bld) [Volume fraction] 40.7 % Normal 39.0-50.0 [facility] Comment on above: Order Comment: No: D o not add to previous draw Performed By: #### 0 0071 #### [facility] [address] [place] [address], [facility] Hemoglobin (Bld) [Mass/Vol] 12.7 g/dL Low 13.0-17.0 [facility] Comment on above: Order Comment: No: D o not add to previous draw Performed By: #### 0 0071 #### [facility] [address] [place] [address], [facility] MCH (RBC) [Entitic mass] 23.3 pg Low 27.0-33.0 [facility] Comment on above: Order Comment: No: D o not add to previous draw Performed By: #### 0 0071 #### [facility] [address] [place] [address], [facility] MCHC (RBC) [Mass/Vol] 31.2 g/dL Low 32.0-35.0 [facility] Comment on above: Order Comment: No: D o not add to previous draw Performed By: #### 0 0071 #### [facility] [address] [place] [id number], [facility] MCV (RBC) [Entitic vol] 74.8 fL Low 82.0-98.0 [facility] Comment on above: Order Comment: No: D o not add to previous draw Performed By: #### 0 0071 #### [facility] [address] [facility] [place] [address], [facility] Nucleated RBC/100 WBC (Bld) [Ratio] 0 % Normal 0-0 [facility] Comment on above: Order Comment: No: D o not add to previous draw Performed By: #### 0 0071 #### [facility] [address] [facility] [place] [address], [facility] PLAT CNT 207 10*3/uL Normal 150-400 [facility] Comment on above: Order Comment: No: D o not add to previous draw Performed By: #### 0 0071 #### [facility] [address] [facility] [place] [address], [facility] RBC (Bld) [#/Vol] 5.44 10*6/uL Normal 4.20-5.70 [facility] Comment on above: Order Comment: No: D o not add to previous draw Performed By: #### 0 0071 #### [facility] [address] [place] [id number], [facility] WBC (Bld) [#/Vol] 3.05 10*3/uL Low 4.00-10.60 [facility] Comment on above: Order Comment: No: D o not add to previous draw Performed By: #### 0 0071 #### [facility] [address] [facility] [place] [address], [facility] MAGNESIUM BLOODon 07-25-2020 Magnesium [Mass/Vol] 1.8 mg/dL Low 1.9-2.7 [facility] Comment on above: Order Comment: No: D o not add to previous draw Performed By: #### 1 0070, 03945 #### [facility] [address] [facility] [place] [address], [facility] POC GLUCOSE LABon 07-25-2020 Glucose [Mass/Vol] 155 mg/dL High 70-[address] [facility] Comment on above: Performed By: #### 0 0071, 70810 #### [facility] [address] [facility]. [address] *SARS-CoV-2 COVID-19on 07-24 SARS-CoV-2 (COVID-19) RNA LILLIANA+probe Ql (Unsp spec) Not detected Normal Not Detected [facility] Comment on above: Order Comment: No: D o not add to previous draw Performed By: #### 0 0071, 63449 #### [facility] [address] [facility]. [address] CBC W/DIFFon 07-24-2020 ABS IMM GRANS 0.0 10*3/uL Normal 0.0-0.2 [facility] Comment on above: Performed By: #### 0 0071 #### [facility] [address] [facility] [place] [address], [facility] ABS NEUTROPHILS 2.0 10*3/uL Normal 1.6-7.6 The [facility] Comment on above: Performed By: #### 0 0071 #### [facility] [address] [facility] [place] [address], [facility] Basophils (Bld) [#/Vol] 0.0 10*3/uL Normal 0.0-0.2 [facility] Comment on above: Performed By: #### 0 0071 #### [facility] [address] [place] [address], [facility] Basophils/100 WBC (Bld) 0.4 % Normal 0.0-1.0 [facility] Comment on above: Performed By: #### 0 0071 #### [facility] [address] [facility] [place] [address], [facility] Eosinophils (Bld) [#/Vol] 0.0 10*3/uL Normal 0.0-0.5 [facility] Comment on above: Performed By: #### 0 0071 #### [facility] [address] [facility] [place] [address], [facility] Eosinophils/100 WBC (Bld) 0.7 % Normal 0.0-6.0 [facility] Comment on above: Performed By: #### 0 0071 #### [facility] [address] [facility]. [address] Erythrocyte distribution width (RBC) [Ratio] 15.8 % High 11.5-15.0 [facility] Comment on above: Performed By: #### 0 0071 #### [facility] [address] [facility] [place] [address], [facility] Hematocrit (Bld) [Volume fraction] 45.5 % Normal 39.0-50.0 [facility] Comment on above: Performed By: #### 0 0071 #### [facility] [address] [facility] [place] [address], [facility] Hemoglobin (Bld) [Mass/Vol] 14.4 g/dL Normal 13.0-17.0 [facility] Comment on above: Performed By: #### 0 0071 #### [facility] [address] [place] [address], [facility] IMMATURE GRANS 0.4 % Normal 0.0-1.0 [facility] Comment on above: Performed By: #### 0 0071 #### [facility] [address] [facility]. [address] Lymphocytes (Bld) [#/Vol] 0.4 10*3/uL Low 1.2-4.0 [facility] Comment on above: Performed By: #### 0 0071 #### [facility] [address] [facility] [place] [address], [facility] Lymphocytes/100 WBC (Bld) 14.5 % Low 20.0-45.0 [facility] Comment on above: Performed By: #### 0 0071 #### [facility] [address] MCH (RBC) [Entitic mass] 23.7 pg Low 27.0-33.0 [facility] Comment on above: Performed By: #### 0 0071 #### [facility] [address] MCHC (RBC) [Mass/Vol] 31.6 g/dL Low 32.0-35.0 [facility] Comment on above: Performed By: #### 0 0071 #### [facility] [address] [place] [address], [facility] MCV (RBC) [Entitic vol] 75.0 fL Low 82.0-98.0 [facility] Comment on above: Performed By: #### 0 0071 #### [facility] [address] [facility] [place] [address], [facility] Monocytes (Bld) [#/Vol] 0.3 10*3/uL Normal 0.1-1.0 [facility] Comment on above: Performed By: #### 0 0071 #### [facility] [address] MONOS 12.3 % High 5.0-12.0 [facility] Comment on above: Performed By: #### 0 0071 #### [facility] [address] [facility] [place] [address], [facility] Neutrophils/100 WBC (Bld) 71.7 % Normal 40.0-72.0 [facility] Comment on above: Performed By: #### 0 0071 #### [facility] [address] [facility] [place] [address], [facility] Nucleated RBC/100 WBC (Bld) [Ratio] 0 % Normal 0-0 [facility] Comment on above: Performed By: #### 0 0071 #### [facility] [address] [facility] [place] [address], [facility] PLAT CNT 225 10*3/uL Normal 150-400 [facility] Comment on above: Performed By: #### 0 0071 #### [facility] [address] [facility] [place] [address], [facility] RBC (Bld) [#/Vol] 6.07 10*6/uL High 4.20-5.70 [facility] Comment on above: Performed By: #### 0 0071 #### [facility] [address] [facility] [place] [address], [facility] WBC (Bld) [#/Vol] 2.76 10*3/uL Low 4.00-10.60 [facility] Comment on above: Performed By: #### 0 0071 #### [facility] [address] [facility]. [address] COMP METABOLIC PANELon 07-24 Albumin [Mass/Vol] 3.7 g/dL Normal 3.5-5.7 [facility] Comment on above: Performed By: #### 3 5200, 63130, 42220 #### [facility] [address] [facility] [place] [address], [facility] ALKALINE PHOSPH 58 IU/L Normal 34-104 [facility] Comment on above: Performed By: #### 3 5200, 68632, 50235 #### [facility] [address] [place] [address], [place] ALT [Catalytic activity/Vol] 12 U/L Normal 7-52 [facility] Comment on above: Performed By: #### 3 5200, 97560, 61225 #### [facility] [address] [place] [address], [place] AST [Catalytic activity/Vol] 15 U/L Normal 13-39 [facility] Comment on above: Performed By: #### 3 5200, 84681, 49729 #### [facility] [address] [place] [address], [place] Bilirubin [Mass/Vol] 1.3 mg/dL High 0.3-1.0 [facility] Comment on above: Performed By: #### 3 5200, 39012, 40458 #### [facility] [address] [place] [address], [place] Calcium [Mass/Vol] 8.7 mg/dL Normal 8.6-10.3 [facility] Comment on above: Performed By: #### 3 5200, 10243, 45767 #### [facility] [address] [place] [address], [place] Chloride [Moles/Vol] 99 mmol/L Normal 98-107 [facility] Comment on above: Performed By: #### 3 5200, 96219, 77068 #### [facility] [address] [place] [address], [place] CO2 [Moles/Vol] 25 mmol/L Normal 21-31 [facility] Comment on above: Performed By: #### 3 5200, 68428, 90055 #### [facility] [address] [place] [address], [place] Creatinine [Mass/Vol] 1.01 mg/dL Normal 0.70-1.30 [facility] Comment on above: Performed By: #### 3 5200, 19081, 16070 #### [facility] [address] [place] [address], [place] GFR/1.73 sq M.predicted among blacks MDRD (S/P/Bld) [Vol rate/Area] mL/min/{1.73_m2} Normal >60 [facility] Comment on above: Performed By: #### 3 5200, 09624, 01047 #### [facility] [address] [place] [address], [place] GFR/1.73 sq M.predicted among non-blacks MDRD (S/P/Bld) [Vol rate/Area] mL/min/{1.73_m2} Normal >60 [facility] Comment on above: Performed By: #### 3 5200, 00713, 57967 #### [facility] [address] [place] [address], [place] Glucose [Mass/Vol] 142 mg/dL High 70-[address] [facility] Comment on above: Performed By: #### 3 5200, 45142, 31183 #### [facility] [address] [place] [address], [place] Potassium [Moles/Vol] 3.9 mmol/L Normal 3.5-5.1 [facility] Comment on above: Performed By: #### 3 5200, 07635, 15280 #### [facility] [address] [place] [address], [place] Protein [Mass/Vol] 6.6 g/dL Normal 6.0-8.[address] [facility] Comment on above: Performed By: #### 3 5200, 55683, 02108 #### [facility] [address] [place] [address], [place] Sodium [Moles/Vol] 134 mmol/L Low 136-[address] [facility] Comment on above: Performed By: #### 3 5200, 47902, 26385 #### [facility] [address] [facility] [address] Urea nitrogen [Mass/Vol] 20 mg/dL Normal 7-25 [facility] Comment on above: Performed By: #### 3 5200, 72068, 48158 #### [facility] [address] [facility] [place] [place] [id number] [place] [address] CT ABDOMEN AND PELVIS W IV C ONTRASTon 07-24-2020 CT ABDOMEN AND PELVIS W IV CONTRAST [facility] Department of Radiology [address] [place] [address] Patient Name: ESTELLA JEFFERY : [...] achievable. Electronically signed: Miguelito Balderas. Transcribed by: [email or web address], User Resident: Electronically Signed by: MIGUELITO BALDERAS @ 07/24/2020 04:14 PM Normal [facility] Comment on above: Order Comment: No: D o not add to previous draw LACTATE BLOODon 07-24-2020 Lactate [Moles/Vol] 1.0 mmol/L Normal 0.5-2.2 [facility] Comment on above: Performed By: #### 1 0054 #### [address] LIPASE BLOODon 07-24-2020 LIPASE 7 Units/L Low 11-82 [facility] Comment on above: Performed By: #### 3 5200, 09298, 44678 #### [address] PORTABLE CHEST 1 VIEWon PORTABLE CHEST 1 VIEW [facility] Department of Radiology [address] [place], [place] [id number] Patient Name: ESTELLA JEFFERY : 1965 Sex: [...] indicated. Electronically signed: Miguelito Balderas. Transcribed by: [email or web address], User Resident: Electronically Signed by: MIGUELITO BALDERAS @ 07/24/2020 03:58 PM Normal [facility] Comment on above: Order Comment: No: D o not add to previous draw TROPONIN-Ion 07-24-2020 Troponin I.cardiac [Mass/Vol] 0.00 ng/mL Normal 0.00-0.04 [facility] Comment on above: Result Comment: REFE RENCE RANGES: 0.00 - 0.14 ng/ml NEGATIVE 0.15 - 0.25 ng/ml INDETERMINATE > 0.25 ng/ml INDICATIVE OF AN M.I. Performed By: #### 3 5200, 71164, 72963 #### [facility] [address] [facility] [place] [address], [facility] URINALYSIS REFLEXon 07-24-19 21 Appearance (U) CLEAR Normal CLEAR [facility] Comment on above: Order Comment: No: D o not add to previous draw Performed By: #### 0 0071, 17287 #### [facility] [address] [facility] [place] [address], [facility] Bilirubin Ql (U) Negative Normal NEGATIVE [facility] Comment on above: Order Comment: No: D o not add to previous draw Performed By: #### 0 0071, 57541 #### [facility] [address] [place] [address], [facility] Color (U) ANEL Abnormal YELLOW [facility] Comment on above: Order Comment: No: D o not add to previous draw Performed By: #### 0 0071, 37464 #### [facility] [address] [place] [address], [place] Glucose Ql (U) Negative Normal NEGATIVE [facility] Comment on above: Order Comment: No: D o not add to previous draw Performed By: #### 0 0071, 28130 #### [facility] [address] [place] [address], [place] Hemoglobin Ql (U) Negative Normal NEGATIVE [facility] Comment on above: Order Comment: No: D o not add to previous draw Performed By: #### 0 0071, 81199 #### [facility] [address] [place] [address], [place] KETONE 20 mg/dL Abnormal NEGATIVE [facility] Comment on above: Order Comment: No: D o not add to previous draw Performed By: #### 0 0071, 79307 #### [facility] [address] [place] [address], [facility] LEUK DINO Negative Normal NEGATIVE [facility] Comment on above: Order Comment: No: D o not add to previous draw Performed By: #### 0 0071, 81029 #### [facility] [address] [place] [address], [place] MICRO NOT DONE Normal [facility] Comment on above: Order Comment: No: D o not add to previous draw Result Comment: Micr oscopics not performed on urines with negative chemical reactions unless requested in original order Performed By: #### 0 0071, 82130 #### [facility] [address] [place] [address], [place] Nitrite Ql (U) Negative Normal NEGATIVE [facility] Comment on above: Order Comment: No: D o not add to previous draw Performed By: #### 0 0071, 08937 #### [facility] [address] [place] [address], [place] pH (U) 5.0 [pH] Normal 5.0-8.0 [facility] Comment on above: Order Comment: No: D o not add to previous draw Performed By: #### 0 0071, 68252 #### [facility] [address] [place] [address], [place] Protein Ql (U) Negative Normal NEGATIVE [facility] Comment on above: Order Comment: No: D o not add to previous draw Performed By: #### 0 0071, 24678 #### [facility] [address] [place] [address], [place] SPEC GRAV 1.084 High 1.015-1.020 [facility] Comment on above: Order Comment: No: D o not add to previous draw Result Comment: DONE BY DILUTION Performed By: #### 0 0071, 95108 #### [facility] [address] [place] [address], [facility] BASIC METABOLIC PANELon Calcium [Mass/Vol] 8.8 mg/dL Normal 8.6-10.3 [facility] Comment on above: Order Comment: No: D o not add to previous draw Performed By: #### 0 0071, 08158 #### [facility] [address] [place] [address], [place] Chloride [Moles/Vol] 103 mmol/L Normal 98-107 [facility] Comment on above: Order Comment: No: D o not add to previous draw Performed By: #### 0 0071, 21671 #### [facility] [address] [place] [address], [place] CO2 [Moles/Vol] 27 mmol/L Normal 21-31 [facility] Comment on above: Order Comment: No: D o not add to previous draw Performed By: #### 0 0071, 77510 #### [facility] [address] [place] [address], [place] Creatinine [Mass/Vol] 0.87 mg/dL Normal 0.70-1.30 [facility] Comment on above: Order Comment: No: D o not add to previous draw Performed By: #### 0 0071, 05406 #### [facility] [address] [place] [address], [place] GFR/1.73 sq M.predicted among blacks MDRD (S/P/Bld) [Vol rate/Area] mL/min/{1.73_m2} Normal >60 [facility] Comment on above: Order Comment: No: D o not add to previous draw Performed By: #### 0 0071, 46631 #### [facility] [address] [place] [address], [place] GFR/1.73 sq M.predicted among non-blacks MDRD (S/P/Bld) [Vol rate/Area] mL/min/{1.73_m2} Normal >60 [facility] Comment on above: Order Comment: No: D o not add to previous draw Performed By: #### 0 0071, 63685 #### [facility] [address] [place] [address], [place] Glucose [Mass/Vol] 156 mg/dL High 70-[address] [facility] Comment on above: Order Comment: No: D o not add to previous draw Performed By: #### 0 0071, 46119 #### [facility] [address] [place] [address], [place] Potassium [Moles/Vol] 3.9 mmol/L Normal 3.5-5.1 [facility] Comment on above: Order Comment: No: D o not add to previous draw Performed By: #### 0 0071, 43194 #### [facility] [address] [place] [address], [place] Sodium [Moles/Vol] 136 mmol/L Normal 136-[address] [facility] Comment on above: Order Comment: No: D o not add to previous draw Performed By: #### 0 0071, 79232 #### [facility] [address] [place] [address], [facility] Urea nitrogen [Mass/Vol] 8 mg/dL Normal 7-25 [facility] Comment on above: Order Comment: No: D o not add to previous draw Performed By: #### 0 0071, 43677 #### [facility] [address] [place] [address], [facility] CBC COMPLETE BLOOD COUNTon 0 07-23-2020 Erythrocyte distribution width (RBC) [Ratio] 15.1 % High 11.5-15.0 [facility] Comment on above: Order Comment: No: D o not add to previous draw Performed By: #### 0 0071 #### [facility] [address] [place] [address], [facility] Hematocrit (Bld) [Volume fraction] 44.1 % Normal 39.0-50.0 [facility] Comment on above: Order Comment: No: D o not add to previous draw Performed By: #### 0 0071 #### [facility] [address] [place] [address], [facility] Hemoglobin (Bld) [Mass/Vol] 13.4 g/dL Normal 13.0-17.0 [facility] Comment on above: Order Comment: No: D o not add to previous draw Performed By: #### 0 0071 #### [facility] [address] [place] [id number], [facility] MCH (RBC) [Entitic mass] 23.1 pg Low 27.0-33.0 [facility] Comment on above: Order Comment: No: D o not add to previous draw Performed By: #### 0 0071 #### [facility] [address] [place] [id number], [facility] MCHC (RBC) [Mass/Vol] 30.4 g/dL Low 32.0-35.0 [facility] Comment on above: Order Comment: No: D o not add to previous draw Performed By: #### 0 0071 #### [facility] [address] [place] [address], [facility] MCV (RBC) [Entitic vol] 76.0 fL Low 82.0-98.0 [facility] Comment on above: Order Comment: No: D o not add to previous draw Performed By: #### 0 0071 #### [facility] [address] [place] [address], [facility] Nucleated RBC/100 WBC (Bld) [Ratio] 0 % Normal 0-0 [facility] Comment on above: Order Comment: No: D o not add to previous draw Performed By: #### 0 0071 #### [facility] [address] [place] [address], [facility] PLAT CNT 190 10*3/uL Normal 150-400 [facility] Comment on above: Order Comment: No: D o not add to previous draw Performed By: #### 0 0071 #### [facility] [address] [place] [address], [facility] RBC (Bld) [#/Vol] 5.80 10*6/uL High 4.20-5.70 The [facility] Comment on above: Order Comment: No: D o not add to previous draw Performed By: #### 0 0071 #### [facility] [address] [place] [address], [facility] WBC (Bld) [#/Vol] 7.98 10*3/uL Normal 4.00-10.60 The [facility] Comment on above: Order Comment: No: D o not add to previous draw Performed By: #### 0 0071 #### [facility] [address] [place] [address], [facility] MAGNESIUM BLOODon 07-23-2020 Magnesium [Mass/Vol] 1.9 mg/dL Normal 1.9-2.7 [facility] Comment on above: Order Comment: No: D o not add to previous draw Performed By: #### 0 0071, [id number] #### [facility] [address] [place] [address], [place] POC GLUCOSE LABon 07-23-2020 Glucose [Mass/Vol] 140 mg/dL High 70-[address] [facility] Comment on above: Performed By: #### 0 0071 #### [facility] [address] [place] [address], [place] Glucose [Mass/Vol] 155 mg/dL High 70-[address] [facility] Comment on above: Performed By: #### 0 0071, [id number] #### [facility] [address] [place] [address], [place] Glucose [Mass/Vol] 164 mg/dL High 70-[address] [facility] Comment on above: Performed By: #### 0 0071 #### [facility] [address] [place] [address], [place] BASIC METABOLIC PANELon Calcium [Mass/Vol] 8.3 mg/dL Low 8.6-10.[address] [facility] Comment on above: Order Comment: No: D o not add to previous draw Performed By: #### 0 0071, [id number] #### [facility] [address] [place] [address], [place] Chloride [Moles/Vol] 103 mmol/L Normal 98-107 [facility] Comment on above: Order Comment: No: D o not add to previous draw Performed By: #### 0 0071, [id number] #### [facility] [address] [place] [address], [place] CO2 [Moles/Vol] 26 mmol/L Normal 21-31 The [facility] Comment on above: Order Comment: No: D o not add to previous draw Performed By: #### 0 0071, [id number] #### [facility] [address] [place] [address], [place] Creatinine [Mass/Vol] 0.90 mg/dL Normal 0.70-1.30 [facility] Comment on above: Order Comment: No: D o not add to previous draw Performed By: #### 0 0071, 64675 #### [facility] [address] [place] [address], [place] GFR/1.73 sq M.predicted among blacks MDRD (S/P/Bld) [Vol rate/Area] mL/min/{1.73_m2} Normal >60 [facility] Comment on above: Order Comment: No: D o not add to previous draw Performed By: #### 0 0071, 66774 #### [facility] [address] [place] [address], [place] GFR/1.73 sq M.predicted among non-blacks MDRD (S/P/Bld) [Vol rate/Area] mL/min/{1.73_m2} Normal >60 [facility] Comment on above: Order Comment: No: D o not add to previous draw Performed By: #### 0 0071, [id number] #### [facility] [address] [place] [address], [place] Glucose [Mass/Vol] 166 mg/dL High 70-[address] [facility] Comment on above: Order Comment: No: D o not add to previous draw Performed By: #### 0 0071, [id number] #### [facility] [address] [place] [address], [place] Potassium [Moles/Vol] 4.1 mmol/L Normal 3.5-5.1 [facility] Comment on above: Order Comment: No: D o not add to previous draw Performed By: #### 0 0071, 93655 #### [facility] [address] [place] [address], [place] Sodium [Moles/Vol] 136 mmol/L Normal 136-[address] [facility] Comment on above: Order Comment: No: D o not add to previous draw Performed By: #### 0 0071, [id number] #### [facility] [address] [place] [address], [facility] Urea nitrogen [Mass/Vol] 12 mg/dL Normal 7-25 [facility] Comment on above: Order Comment: No: D o not add to previous draw Performed By: #### 0 0071, 82863 #### [facility] [address] [place] [address], [facility] CBC COMPLETE BLOOD COUNTon 0 - Erythrocyte distribution width (RBC) [Ratio] 14.9 % Normal 11.5-15.0 [facility] Comment on above: Order Comment: No: D o not add to previous draw Performed By: #### 0 0071, [id number] #### [facility] [address] [place] [address], [facility] Hematocrit (Bld) [Volume fraction] 42.8 % Normal 39.0-50.0 [facility] Comment on above: Order Comment: No: D o not add to previous draw Performed By: #### 0 0071, [id number] #### [facility] [address] [place] [address], [facility] Hemoglobin (Bld) [Mass/Vol] 13.3 g/dL Normal 13.0-17.0 [facility] Comment on above: Order Comment: No: D o not add to previous draw Performed By: #### 0 0071, 13761 #### [facility] [address] [place] [address], [place] MCH (RBC) [Entitic mass] 23.4 pg Low 27.0-33.0 [facility] Comment on above: Order Comment: No: D o not add to previous draw Performed By: #### 0 0071, 53719 #### [facility] [address] [place] [address], [place] MCHC (RBC) [Mass/Vol] 31.1 g/dL Low 32.0-35.0 [facility] Comment on above: Order Comment: No: D o not add to previous draw Performed By: #### 0 0071, [id number] #### [facility] [address] [place] [address], [facility] MCV (RBC) [Entitic vol] 75.2 fL Low 82.0-98.0 [facility] Comment on above: Order Comment: No: D o not add to previous draw Performed By: #### 0 0071, 71376 #### [facility] [address] [place] [address], [facility] Nucleated RBC/100 WBC (Bld) [Ratio] 0 % Normal 0-0 [facility] Comment on above: Order Comment: No: D o not add to previous draw Performed By: #### 0 0071, 99034 #### [facility] [address] [place] [id number], [facility] PLAT CNT 211 10*3/uL Normal 150-400 [facility] Comment on above: Order Comment: No: D o not add to previous draw Performed By: #### 0 0071, 59943 #### [facility] [address] [facility] [place] [address], [facility] RBC (Bld) [#/Vol] 5.69 10*6/uL Normal 4.20-5.70 The [facility] Comment on above: Order Comment: No: D o not add to previous draw Performed By: #### 0 0071, [id number] #### [facility] [address] [place] [address], [place] WBC (Bld) [#/Vol] 8.55 10*3/uL Normal 4.00-10.60 The [facility] Comment on above: Order Comment: No: D o not add to previous draw Performed By: #### 0 0071, 78685 #### [facility] [address] [place] [address], [facility] MAGNESIUM BLOODon 07-22-2020 Magnesium [Mass/Vol] 2.0 mg/dL Normal 1.9-2.7 [facility] Comment on above: Order Comment: No: D o not add to previous draw Performed By: #### 0 0071, 34810 #### [facility] [address] [place] [address], [facility] Operative Reporton Operative Report MR#: [id number] I [facility] Pt. Name: Estella Jeffery Room #: [id number] Discharge Date: Birthdate: 1965 OPERATIVE REPORT DATE [...] Izaguirre M.D. Date Trans: 07/21/2020 10:04 P/patricia [id number] cc: Jae Lopez M.D. [address], [facility] [id number] [facility] POC GLUCOSE LABon 07-22-2020 Glucose [Mass/Vol] 142 mg/dL High 70-100 [facility] Comment on above: Performed By: #### 0 0071, 62941 #### [facility] [address] [place] [address], [place] Glucose [Mass/Vol] 113 mg/dL High 70-100 [facility] Comment on above: Performed By: #### 0 0071, 87015 #### [facility] [address] [place] [address], [place] Glucose [Mass/Vol] 153 mg/dL High 70-100 [facility] Comment on above: Performed By: #### 0 0071, 88873 #### [facility] [address] [place] [address], [place] Glucose [Mass/Vol] 127 mg/dL High 70-100 [facility] Comment on above: Performed By: #### 0 0071, 30091 #### [facility] [address] [place] [address], [place] Glucose [Mass/Vol] 176 mg/dL High 70-100 [facility] Comment on above: Performed By: #### 0 0071 #### [facility] [address] [place] [address], [place] *MRSA/MSSA DNA NASALon 07-21 *MRSA/MSSA DNA NASAL Clinical Report: (D ) Specimen: NASAL SWAB Collected: 07/21/2020 00:00 Status: Final Last Updated: 07/21/2020 15:28 (1) No collection time noted on specimen or requisition. The collection time recorded is the time of receipt in the lab. MSSA DNA (Final) Methicillin Susceptible Staphylococcus aureus DNA Detected MRSA DNA (Final) Negative Normal [facility] Comment on above: Order Comment: No: D o not add to previous draw Performed By: #### 0 0071, 81553 #### [facility] [address] [facility] [place] [address], [facility] POC GLUCOSE LABon 07-21-2020 Glucose [Mass/Vol] 168 mg/dL High 70-[address] [facility] Comment on above: Performed By: #### 0 0071 #### [facility] [address] [place] [address], [place] Glucose [Mass/Vol] 211 mg/dL High 70-[address] [facility] Comment on above: Performed By: #### 0 0071, 23615 #### [facility] [address] [place] [address], [place] Glucose [Mass/Vol] 117 mg/dL High 70-[address] [facility] Comment on above: Performed By: #### 0 0071, [id number] #### [facility] [address] [place], [place] [id number] [place] [address] *SARS-CoV-2 COVID-19on 07-18 SARS-CoV-2 (COVID-19) RNA LILLIANA+probe Ql (Unsp spec) Not detected Normal Not Detected [facility] Comment on above: Order Comment: No: D o not add to previous draw Performed By: #### 0 0071, [id number] #### [facility] [address] [place] [address], [facility] BASIC METABOLIC PANELon 06-21 Calcium [Mass/Vol] 9.2 mg/dL Normal 8.6-10.[address] [facility] Comment on above: Performed By: #### 0 0071 #### [facility] [address] [place] [address], [place] Chloride [Moles/Vol] 100 mmol/L Normal 98-107 [facility] Comment on above: Performed By: #### 0 0071 #### [facility] [address] [place] [address], [place] CO2 [Moles/Vol] 30 mmol/L Normal 21-31 The [facility] Comment on above: Performed By: #### 0 0071 #### [facility] [address] [place] [address], [facility] Creatinine [Mass/Vol] 1.01 mg/dL Normal 0.70-1.30 [facility] Comment on above: Performed By: #### 0 0071 #### [facility] [address] [place] [address], [place] GFR/1.73 sq M.predicted among blacks MDRD (S/P/Bld) [Vol rate/Area] mL/min/{1.73_m2} Normal >60 [facility] Comment on above: Performed By: #### 0 0071 #### [facility] [address] [place] [address], [facility] GFR/1.73 sq M.predicted among non-blacks MDRD (S/P/Bld) [Vol rate/Area] mL/min/{1.73_m2} Normal >60 [facility] Comment on above: Performed By: #### 0 0071 #### [facility] [address] [facility] [place] [address], [place] Glucose [Mass/Vol] 121 mg/dL High 70-100 [facility] Comment on above: Performed By: #### 0 0071 #### [facility] [address] [place] [address], [place] Potassium [Moles/Vol] 4.4 mmol/L Normal 3.5-5.1 [facility] Comment on above: Performed By: #### 0 0071 #### [facility] [address] [place] [address], [place] Sodium [Moles/Vol] 135 mmol/L Low 136-[address] [facility] Comment on above: Performed By: #### 0 0071 #### [facility] [address] [place] [address], [place] Urea nitrogen [Mass/Vol] 14 mg/dL Normal 7-25 [facility] Comment on above: Performed By: #### 0 0071 #### [facility] [address] CBC W/DIFFon 07-18-2020 ABS IMM GRANS 0.0 10*3/uL Normal 0.0-0.2 The [facility] Comment on above: Performed By: #### 0 0071 #### [facility] [address] ABS NEUTROPHILS 2.5 10*3/uL Normal 1.6-7.6 The [facility] Comment on above: Performed By: #### 0 0071 #### [facility] [address] Basophils (Bld) [#/Vol] 0.0 10*3/uL Normal 0.0-0.2 [facility] Comment on above: Performed By: #### 0 0071 #### [facility] [address] Basophils/100 WBC (Bld) 0.9 % Normal 0.0-1.0 [facility] Comment on above: Performed By: #### 0 0071 #### [facility] [address] [facility] [place] [address], [facility] Eosinophils (Bld) [#/Vol] 0.1 10*3/uL Normal 0.0-0.5 [facility] Comment on above: Performed By: #### 0 0071 #### [facility] [address] [place] [address], [facility] Eosinophils/100 WBC (Bld) 1.2 % Normal 0.0-6.0 [facility] Comment on above: Performed By: #### 0 0071 #### [facility] [address] Erythrocyte distribution width (RBC) [Ratio] 14.8 % Normal 11.5-15.0 [facility] Comment on above: Performed By: #### 0 0071 #### [facility] [address] [facility] [place] [address], [facility] Hematocrit (Bld) [Volume fraction] 47.6 % Normal 39.0-50.0 [facility] Comment on above: Performed By: #### 0 0071 #### [facility] [address] [facility] [address] Hemoglobin (Bld) [Mass/Vol] 14.5 g/dL Normal 13.0-17.0 [facility] Comment on above: Performed By: #### 0 0071 #### [facility] [address] IMMATURE GRANS 0.2 % Normal 0.0-1.0 [facility] Comment on above: Performed By: #### 0 0071 #### [facility] [address] [facility] [place] [address], [facility] Lymphocytes (Bld) [#/Vol] 1.4 10*3/uL Normal 1.2-4.0 [facility] Comment on above: Performed By: #### 0 0071 #### [facility] [address] [facility] [place] [address], [facility] Lymphocytes/100 WBC (Bld) 32.9 % Normal 20.0-45.0 [facility] Comment on above: Performed By: #### 0 0071 #### [facility] [address] [facility] [place] [address], [facility] MCH (RBC) [Entitic mass] 23.2 pg Low 27.0-33.0 [facility] Comment on above: Performed By: #### 0 0071 #### [facility] [address] [facility] [place] [address], [facility] MCHC (RBC) [Mass/Vol] 30.5 g/dL Low 32.0-35.0 [facility] Comment on above: Performed By: #### 0 0071 #### [facility] [address] [facility] [place] [address], [facility] MCV (RBC) [Entitic vol] 76.0 fL Low 82.0-98.0 [facility] Comment on above: Performed By: #### 0 0071 #### [facility] [address] [place] [address], [facility] Monocytes (Bld) [#/Vol] 0.3 10*3/uL Normal 0.1-1.0 [facility] Comment on above: Performed By: #### 0 0071 #### [facility] [address] [place] [address], [facility] MONOS 7.5 % Normal 5.0-12.0 [facility] Comment on above: Performed By: #### 0 0071 #### [facility] [address] [place] [address], [facility] Neutrophils/100 WBC (Bld) 57.3 % Normal 40.0-72.0 [facility] Comment on above: Performed By: #### 0 0071 #### [facility] [address] [place] [address], [facility] Nucleated RBC/100 WBC (Bld) [Ratio] 0 % Normal 0-0 [facility] Comment on above: Performed By: #### 0 0071 #### [facility] [address] [facility] [place] [address], [facility] PLAT CNT 222 10*3/uL Normal 150-400 [facility] Comment on above: Performed By: #### 0 0071 #### [facility] [address] [facility] [place] [id number], [facility] RBC (Bld) [#/Vol] 6.26 10*6/uL High 4.20-5.70 The [facility] Comment on above: Performed By: #### 0 0071 #### [facility] [address] [facility]. [address] WBC (Bld) [#/Vol] 4.28 10*3/uL Normal 4.00-10.60 The [facility] Comment on above: Performed By: #### 0 0071 #### [facility] [address] [facility]. [address] PROTHROMBIN TIMEon INR Coag (PPP) [Relative time] 0.95 {INR} Normal 0.91-1.16 [facility] Comment on above: Result Comment: ACCC [...] CHEST 1995;[id number]. Performed By: #### 0 0071, [id number] #### [facility] [address] [facility]. [address] PT Coag (PPP) [Time] 12.7 s Normal 12.3-14.8 [facility] Comment on above: Result Comment: ALL RESULTS MUST BE INTERPRETED WITH RESPECT TO BLOOD DRAWING ARTIFACT OR DILUTION ERROR OF ANTICOAGULANT AT THE TIME OF SAMPLING. Performed By: #### 0 0071, [id number] #### [facility] [address] Vital Signs Date Time Vital Sign Value Performing Clinician Facility 03-27-2025 13:33-0400 Body height 165.1 cm [facility] 03-27-2025 13:33-0400 Body mass index (BMI) [Ratio] 25.42 kg/m2 [facility] [address] [place] [address] 03-27-2025 13:33-0400 Body temperature 96.91 [degF] [facility] [address] [place] [address] System 03-27-2025 13:33-0400 Body weight 69.3 kg [facility] 03-27-2025 13:33-0400 Diastolic blood pressure 80 mm[Hg] [facility] [address] [place] [address] 03-27-2025 13:33-0400 Heart rate 105 /min [facility] [address] [place] [address] 03-27-2025 13:33-0400 Respiratory rate 18 /min [facility] [address] [place] [address] System 03-27-2025 13:33-0400 SaO2% (BldA) [Mass fraction] 97 % [facility] [address] [place] [address] 03-27-2025 13:33-0400 Systolic blood pressure 123 mm[Hg] [facility] [address] [place] [address] 11-06-2024 13:44-0400 Body height 165.1 cm Jaz Mici PA-C Work Phone: [facility] 11-06-2024 13:44-0400 Body mass index (BMI) [Ratio] 27.46 kg/m2 Jaz Mici PA-C Work Phone: [facility] 11-06-2024 13:44-0400 Body weight 74.84 kg Jaz Mici PA-C Work Phone: [facility] 11-06-2024 13:44-0400 Diastolic blood pressure 80 mm[Hg] Jaz Mici PA-C Work Phone: [facility] 11-06-2024 13:44-0400 Heart rate 71 /min Jaz Mici PA-C [facility] 11-06-2024 13:44-0400 SaO2% (BldA) [Mass fraction] 96 % Jaz Mici PA-C Work Phone: [facility] 11-06-2024 13:44-0400 Systolic blood pressure 132 mm[Hg] Jaz Mici PA-C Work Phone: [facility] 10-15-2024 14:44-0400 Body height 165.1 cm Rachele Lopez MD Work Phone: [facility] 10-15-2024 14:44-0400 Body mass index (BMI) [Ratio] 27.31 kg/m2 Rachele Lopez MD Work Phone: [facility] 10-15-2024 14:44-0400 Body weight 74.44 kg Rachele Lopez MD Work Phone: [facility] 10-15-2024 14:44-0400 Diastolic blood pressure 61 mm[Hg] Rachele Lopez MD Work Phone: [facility] 10-15-2024 14:44-0400 Heart rate 100 /min Rachele Lopez MD Work Phone: [facility] 10-15-2024 14:44-0400 Systolic blood pressure 93 mm[Hg] Rachele Lopez MD Work Phone: [facility] 07-30-2024 12:33-0500 Body mass index (BMI) [Ratio] 27.96 kg/m2 Fidelina Fisher APRN.LEATHER COVERER Work Phone: [facility] 07-30-2024 12:33-0500 Body temperature 97.59 [degF] Fidelina Fisher APRN.LEATHER COVERER Work Phone: [facility] 07-30-2024 12:33-0500 Body weight 76.2 kg Fidelina Dialloower AND [employer].LEATHER COVERER Work Phone: [facility] 07-30-2024 12:33-0500 Diastolic blood pressure 63 mm[Hg] Fidelina Dialloower AND [employer].LEATHER COVERER Work Phone: [facility] 07-30-2024 12:33-0500 Heart rate 84 /min Fidelina Dialloower AND [employer].LEATHER COVERER Work Phone: [facility] 07-30-2024 12:33-0500 Systolic blood pressure 99 mm[Hg] Fidelina Dialloower AND [employer].LEATHER COVERER Work Phone: [facility] 07-22-2024 08:01-0500 Diastolic blood pressure 70 mm[Hg] Luiz Shipley MD Work Phone: [facility] 07-22-2024 08:01-0500 Heart rate 92 /min Luiz Shipley MD Work Phone: [facility] 07-22-2024 08:01-0500 SaO2% (BldA) [Mass fraction] 95 % Luiz Shipley MD Work Phone: [facility] 07-22-2024 08:01-0500 Systolic blood pressure 105 mm[Hg] Luiz Shipley MD Work Phone: [facility] 07-22-2024 05:00-0500 Body temperature 97.7 [degF] Luiz Shipley MD Work Phone: [facility] 07-22-2024 05:00-0500 Respiratory rate 15 /min Luiz Shipley MD Work Phone: [facility] 07-12-2024 07:00-0500 Body mass index (BMI) [Ratio] 30.78 kg/m2 Luiz Shipley MD Work Phone: [facility] 07-12-2024 07:00-0500 Body weight 83.9 kg Luiz Shipley MD Work Phone: [facility] 06-21-2024 10:23-0500 Heart rate 69 /min Danni Lue [facility] 06-21-2024 10:23-0500 SaO2% (BldA) [Mass fraction] 98 % Danni Lue [facility] 06-21-2024 10:23-0500 Diastolic blood pressure 88 mm[Hg] Danni Lue [facility] 06-21-2024 10:23-0500 Mean blood pressure 104 mm[Hg] Danni Lue [facility] 06-21-2024 10:23-0500 Systolic blood pressure 135 mm[Hg] Danni Lue [facility] 03-15-2024 14:28-0400 Body height 165.1 cm MD Jae Lopez Work Phone: [facility] 03-15-2024 14:28-0400 Body weight 73.93 kg MD Jae Lopez Work Phone: [facility] 01-11-2024 09:54-0400 Blood Pressure Location Danni Lue [facility] 01-11-2024 09:54-0400 Body temperature 98.6 [degF] Danni Lue [facility] 01-11-2024 09:54-0400 Diastolic blood pressure 72 mm[Hg] Danni Lue [facility] 01-11-2024 09:54-0400 Heart rate 57 /min Danni Lue [facility] 01-11-2024 09:54-0400 Respiratory rate 16 /min Danni Lue [facility] 01-11-2024 09:54-0400 Systolic blood pressure 119 mm[Hg] Danni Graham [facility] 10-12-2022 12:01-0400 Diastolic blood pressure 74 mm[Hg] Miguelito Chicas AND [employer] TROLLEY.LEATHER COVERER Work Phone: [facility] 10-12-2022 12:01-0400 Heart rate 58 /min Miguelito Chicas AND [employer] TROLLEY.LEATHER COVERER Work Phone: [facility] 10-12-2022 12:01-0400 Systolic blood pressure 117 mm[Hg] Miguelito Chicas AND [employer] IN[employer] TROLLEY.LEATHER COVERER Work Phone: [facility] 04-30-2022 10:56-0500 Body weight 86.23 kg Gera Cardona DO Work Phone: [facility] 04-30-2022 10:56-0500 Diastolic blood pressure 91 mm[Hg] Gera Cardona DO Work Phone: [facility] 04-30-2022 10:56-0500 Heart rate 82 /min Gera Cardona DO Work Phone: [facility] 04-30-2022 10:56-0500 SaO2% (BldA) [Mass fraction] 97 % Gera Cardona DO Work Phone: [facility] 04-30-2022 10:56-0500 Systolic blood pressure 139 mm[Hg] Gera Cardona DO Work Phone: [facility] 04-26-2022 03:51-0500 Body height 165.1 cm Roosevelt Merlos MD Work Phone: [facility] 04-26-2022 03:51-0500 Body weight 83.6 kg Roosevelt Merlos MD Work Phone: [facility] 04-22-2022 16:41-0400 Diastolic blood pressure 100 mm[Hg] Brenda Blanco AND [employer] TROLLEY.LEATHER COVERER Work Phone: [facility] 04-22-2022 16:41-0400 Systolic blood pressure 156 mm[Hg] Brenda Blanco AND [employer] IN[employer] TROLLEY.LEATHER COVERER Work Phone: [facility] 04-22-2022 16:17-0400 Body temperature 98.29 [degF] Brenda Blanco AND [employer] IN[employer] TROLLEY.LEATHER COVERER Work Phone: [facility] 04-22-2022 16:17-0400 Body weight 86.27 kg Brendaart Blanco AND [employer] IN[employer] TROLLEY.LEATHER COVERER Work Phone: [facility] 04-22-2022 16:17-0400 Heart rate 98 /min Brendaart Blanco AND [employer] IN[employer] TROLLEY.LEATHER COVERER Work Phone: [facility] 04-22-2022 16:17-0400 SaO2% (BldA) [Mass fraction] 100 % Brenda Blanco AND [employer] IN[employer]CTOR BUS TROLLEY.LEATHER COVERER Work Phone: [facility] Encounters Encounter Date Encounter Type Care Provider Facility Start: 03-27-2025 End: 03-27-2025 [facility] Start: 03-27-2025 [facility] Start: 03-27-2025 End: 03-27-2025 Patient encounter procedure [facility] Provider 4 [facility] Comment on above: Pre-op testing (Prim rosalba Dx) Start: 03-27-2025 End: 03-27-2025 Patient encounter status [facility] Start: 02-15-2025 End: 02-15-2025 ambulatory BAILEY BERG [facility] Start: 12-18-2024 End: 12-18-2024 Telephone encounter Roberta Bui RN [facility] Comment on above: MRI Start: 11-06-2024 End: 11-06-2024 Office outpatient visit 15 minutes Jaz Art PA-C Work Phone: [facility] Comment on above: Orthostatic hypotens ion (Primary Dx); Bradycardia Start: 11-06-2024 End: 11-06-[facility] Start: 10-26-2024 End: 10-26-2024 Chart abstracting Sc[facility] Start: 10-23-2024 End: 10-23-2024 Telephone encounter Germaine Ellis [facility] Call Nina kramer Comment on above: Hypotension Start: 10-19-2024 End: 10-24-2024 Evaluation and management of inpatient JAE LPOEZ [facility] Start: 10-15-2024 End: 10-15-2024 Office outpatient new 45 minutes Rachele Lopez MD Work Phone: [facility] Neurology, A Department of [facility] Comment on above: 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); Colloid cyst of third ventricle (CMS-HCC); Episode of confusion Start: 10-15-2024 End: 10-15-2024 [facility] Start: 07-30-2024 End: 07-30-2024 ambulatory FIDELINA FISHER [facility] Start: 07-30-2024 End: 07-30-2024 Patient encounter procedure Fidelina Fisher AND [employer] IN[employer] TROLLEY.LEATHER COVERER Work Phone: [facility] Comment on above: History of traumatic brain injury (Primary Dx); Dementia, unspecified dementia severity, unspecified dementia type, unspecified whether behavioral, psychotic, or mood disturbance or anxiety (HCC); Cognitive deficits; Impaired mobility and ADLs; 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) Start: 07-22-2024 End: 07-22-2024 Evaluation and management of inpatient CHANDLER PALMA [facility] Start: 07-20-2024 End: 07-20-2024 Telephone encounter Janice Mcdermott MD Work Phone: Neurology Start: 07-18-2024 End: 07-20-2024 Telephone encounter Narciso Guerra MD Work Phone: Neurology Comment on above: Patient Question Start: 07-17-2024 End: 07-18-2024 Telephone encounter Narciso Guerra MD Work Phone: Neurology Comment on above: Patient Question Start: 07-12-2024 End: 07-12-2024 Telephone encounter Kelly Johnson [facility] Comment on above: patient concern Start: 07-11-2024 ambulatory Danni Graham Facility:[facility] Start: 07-10-2024 ambulatory [facility] Start: 07-10-2024 End: 07-10-2024 [facility] Start: 07-08-2024 End: 07-08-2024 Evaluation and management of inpatient [facility] Start: 07-08-2024 End: 07-22-2024 Evaluation and management of inpatient [facility] Start: 07-06-2024 End: 07-06-2024 Evaluation and management of inpatient ELANA Clayton [facility] Start: 07-06-2024 End: 07-22-2024 Evaluation and management of inpatient Nichol Heath MD Work Phone: [facility] 8 Acute Comment on above: Dementia with behavi oral disturbance [facility] (Primary Dx); Status post colostomy, follow-up exam ([facility]) Start: 07-03-2024 ambulatory [facility] Start: 07-03-2024 End: 07-05-2024 Emergency department patient visit [facility] Start: 06-25-2024 ambulatory Elliott Romeo acility:[facility] Start: 06-24-2024 End: 06-24-2024 Emergency department patient visit MAITE MORRIS [facility] Start: 06-21-2024 End: 06-21-2024 ambulatory Danni Graham Facility:[facility] Start: 06-21-2024 End: 06-21-2024 Patient encounter procedure Danni Graham [facility] Start: 05-02-2024 End: 06-27-2024 Pre-admission assessment Danni M. Lue [facility] Start: 03-15-2024 End: 03-15-2024 Patient encounter procedure MD Jae Lopez Work Phone: [facility] [place] Work Phone: Start: 03-15-2024 End: 03-15-2024 ambulatory MD Jae Lopez Work Phone: [facility] Work Phone: Start: 03-09-2024 End: 03-09-2024 Patient Msg Lisandra Gomez AND [employer] TROLLEY.LEATHER COVERER Work Phone: Neurology Comment on above: refill Start: 03-09-2024 End: 03-09-2024 Refill Agustina Plascencia MD Work Phone: Neurology Comment on above: Refill Request Start: 01-25-2024 End: 01-25-2024 ambulatory Danni M. Lue Facility:[facility] [place] Start: 01-25-2024 End: 01-25-2024 Off-Site Danni M. Lue [facility] Derek Start: 01-11-2024 End: 01-11-2024 ambulatory Danni M. Lue Facility:[facility] Start: 01-11-2024 End: 01-11-2024 Patient encounter procedure [facility] Start: 12-21-2023 ambulatory Danni Lue Facility:[facility] [place] Start: 12-06-2023 Refill Agustina orellana MD Work Phone: Neurology Comment on above: Refill Request donepezil refill Start: 03-07-2023 Patient entered into trial Tabby Naqvi Research Coordinator [facility] Start: 03-07-2023 Telephone encounter Tabby locke Research Coordinator Neurology Comment on above: Research ([facility] (IRB [id number])) Start: 02-08-2023 E-mail encounter chris fajardo caregiver Sonal Weinstein APRN.LEATHER COVERER [facility] Start: 02-08-2023 Follow-up encounter Sonal Beltran APRN.LEATHER COVERER Work Phone: Neurology Comment on above: sleep follow up Start: 02-08-2023 Patient entered into trial Tabby Naqvi Research Coordinator [facility] Start: 02-08-2023 Telephone encounter Tabby locke Research Coordinator Neurology Comment on above: Research ([facility] (IRB [id number]) Interest) Start: 02-04-2023 Telephone encounter Sonal Beltran APRN.LEATHER COVERER Work Phone: Neurology Comment on above: PAP Therapy Follow U p (12/18/22 - 01/16/[address] FROM DME ) Start: 02-02-2023 Refill Agustina orellana MD Work Phone: Neurology Comment on above: Refill Request Start: 01-13-2023 Telephone encounter Kary Gaxiola RN Work Phone: Neurology Comment on above: Returning Patient's Call Start: 12-03-2022 Telephone encounter Sonal Beltran APRN.LEATHER COVERER Work Phone: Neurology Comment on above: PAP Rx Faxed (DME: S HS ) Start: 12-02-2022 End: 12-02-2022 Telemedicine consultation with patient Sonal Wenistein APRN.LEATHER COVERER Work Phone: [facility] Start: 12-02-2022 End: 12-02-2022 ambulatory Agustina Plascencia MD Work Phone: Neurology Comment on above: Forms from [employer] Obstructive sleep ap carol (Primary Dx); Primary central sleep apnea; Hyperlipidemia, unspecified hyperlipidemia type Start: 12-02-2022 E-mail encounter chris m caregiver Agustina Plascencia MD Work Phone: [facility] Start: 11-17-2022 End: 11-17-2022 ambulatory Agustina Palscencia MD Work Phone: Neurology Comment on above: Alzheimer's disease (HCC) (Primary Dx) Start: 11-17-2022 End: 11-17-2022 Telemedicine consultation with patient Agustina Plascencia MD Work Phone: [facility] Start: 10-21-2022 End: 10-22-[address] JAE LOPEZ . Facility: Start: 10-12-2022 End: 10-12-2022 Patient encounter procedure Miguelito Aviva AND [employer] INSTRUCTOR [employer] TROLLEY.LEATHER COVERER Work Phone: Neurology Comment on above: Memory loss (Primary Dx); Encounter for lumbar puncture Start: 10-12-2022 End: 10-12-2022 Patient encounter status Miguelito Gonzalestirso VELARDE.LEATHER COVERER Work Phone: Neurology Start: 08-12-2022 Chart abstracting Leah Mckeon RN Ne urology Start: 08-11-2022 End: 08-11-2022 ambulatory Agustina Plascencia MD Work Phone: Neurology Comment on above: Memory loss (Primary Dx) Start: 08-11-2022 End: 08-11-2022 Telemedicine consultation with patient Agustina Plascencia MD Work Phone: [facility] Start: 08-10-2022 E-mail encounter fro m caregiver [facility] Provider MARY [facility] Start: 08-10-2022 Patient encounter procedure [facility] Neurology Comment on above: cancel appointment Start: 07-21-2022 End: 07-21-2022 ambulatory Agustina Plascencia MD Work Phone: Neurology Comment on above: Memory loss Start: 07-21-2022 End: 07-21-2022 Telemedicine consultation with patient Agustina Plascencia MD Work Phone: [facility] Start: 05-07-2022 ambulatory NARCISO GUERRA Facility:[facility] Start: 05-07-2022 End: 05-07-2022 Subsequent hospital visit by physician [facility] (Istat/3t) Work Phone: [facility] MRI Comment on above: Cognitive changes [R 41.89] Start: 04-30-2022 End: 04-30-2022 Patient encounter procedure Gera Cardona DO Work Phone: Neurology Comment on above: SHELBY (obstructive sle ep apnea) (Primary Dx) Start: 04-28-2022 ambulatory Narciso Guerra MD Work Phone: Neurology Comment on above: sleep study results Start: 04-28-2022 E-mail encounter fro m caregiver Narciso Guerra MD Work Phone: [facility] Start: 04-27-2022 ambulatory Narciso Guerra MD Work Phone: Neurology Comment on above: lab results Start: 04-27-2022 E-mail encounter fro m caregiver Narciso Guerra MD Work Phone: [facility] Start: 04-25-2022 Chart abstracting Roosevelt Merlos MD Work Phone: Neurology Start: 04-22-2022 End: 04-22-2022 Office outpatient visit 15 minutes Brenda Blanco APRN.LEATHER COVERER Work Phone: [facility] [...] Evaluation and management of inpatient JAE LOPEZ Facility:[facility] Start: 07-21-2020 End: 07-23-2020 ambulatory NAYA IZAGUIRRE Facility:[facility] Procedures Date Procedure Procedure Detail Performing Clinician Start: 03-27-2025 Blood count complete automated Meenakshi Saige Cox MD Work Phone: Start: 11-06-2024 Follow-up visit Follow-up JAZ AMADOR [...] MD Work Phone: Start: 07-09-2024 Antibody kalia oviedo virus Arnulfo Haley MD Work Phone: [...] Start: 10-12-2022 TOURTELLOTTE BLOOD Og zaina Chicas APRN.LEATHER COVERER Work Phone: Start: 10-12-2022 Cell count misc body fluids w/differential count Miguelito Chicas APRN.LEATHER COVERER Work Phone: Start: 10-12-2022 CSF MANUAL DIFF Miguelito Chicas APRN.LEATHER COVERER Work Phone: Start: 04-25-2023 Glucose body fluid o ther than blood Miguelito Gonzalestirso AND [employer]AXI INSTRUCTOR [employer] TROLLEY.LEATHER COVERER Work Phone: Start: 05-07-2022 MRI 3D POST PROCESSING Narciso Guerra MD Work Phone: Start: 05-07-2022 Mri brain brain stem w/o contrast material Narciso Guerra MD Work Phone: Start: 07-21-2020 ANESTH REPAIR OF HERNIA DOMENICASULTANABROOKE IZAGUIRRE Start: 07-21-2020 HERNIA REPAIR W/MESH RADHA [...] H/O: colostomy Status post colostomy, follow-up exam ([facility]) Nichol Heath MD Work Phone: Repair of artery Danni Lucorie Plan of Treatment Date Care Activity Detail Author Start: 11-23-2029 DTaP,Tdap and Td Vaccines (2 - Td or Tdap) DTaP,Tdap and Td Vaccines (2 - Td or Tdap) [facility] Start: 11-23-2029 Urine microalbumin profile DTaP,Tdap,Td Vaccine (2 - Td or Tdap) [facility] Start: 07-17-2027 Diabetes Screening Diabetes Screenin g [facility] Start: 03-27-2026 Adult BMI Screening Adult BMI Screen ing [facility] Start: 03-27-2026 Tobacco Screening Tobacco Screening [facility] Start: 11-06-2025 Adult BMI Screening Adult BMI Screen ing [facility] Start: 11-06-2025 Tobacco Screening Tobacco Screening [facility] Start: 10-24-2025 Adult BMI Screening Adult BMI Screen ing [facility] Start: 10-22-2025 Adult BMI Screening Adult BMI Screen ing [facility] Start: 10-16-2025 Tobacco Screening Tobacco Screening [facility] Start: 10-15-2025 Adult BMI Follow Up Plan Adult BMI Follow Up Plan [facility] Start: 10-15-2025 Adult BMI Screening Adult BMI Screen ing [facility] Start: 10-15-2025 Depression Screening Depression Scre ening [facility] Start: 10-15-2025 Tobacco Screening Tobacco Screening [facility] Start: 07-11-2025 Tobacco Screening Tobacco Screening [facility] Start: 07-10-2025 Adult BMI Screening Adult BMI Screen ing [facility] Start: 04-22-2025 DIABETES SCREEN DIABETES SCREEN [facility] Start: 04-22-2025 Diabetes Screening Diabetes Screenin g [facility] Start: 04-22-2025 End: 04-22-2025 Patient encounter procedure 04/22/2025 2:00 PM EST Office Visit [facility] Neurology, A Department of [address] [place] [phone] Rachele Lopez MD [address] [place] [address] [address] [place] [address] [facility] Neurology, A Department of [facility] Start: 04-10-2025 End: 04-10-2025 Patient encounter procedure 04/10/2025 12:30 PM EDT Appointment [facility] [address] [place] [phone] Gaurang Corrales MD [address] [place], [place] [id number] [facility] Start: 03-27-2025 End: 03-27-2025 Patient encounter procedure 03/27/2025 1:15 PM EDT Procedure visit [facility] [address] [place] [phone] [facility] Start: 02-18-2025 COVID-19 Vaccine ( season) COVID-19 Vaccine ( season) [facility] Start: 02-18-2025 Influenza vaccination Influenza Vacc ine [facility] Start: 01-17-2025 End: 07-20-2025 MR Brain WO and W contrast IV MR brain with and without contrast Imaging Routine Dementia with behavioral disturbance ([facility]) Expected: 01/17/2025 (Approximate), Expires: 07/20/2025 [facility] Work Phone: Comment on above: Expected: 01/17/2025 (Approximate), Expires: 07/20/2025 Start: 12-18-2024 End: 12-18-2024 Patient encounter procedure 12/18/2024 2:10 PM EDT Office Visit [facility] [address] [place] [phone] Beto Villar MD [address] [place] [phone] [facility] Start: 12-18-2024 End: 12-18-2025 MR Brain WO and W contrast IV MR brain with and without contrast Imaging Routine Dementia with behavioral disturbance (CMS-HCC) Expected: 12/18/2024, Expires: 12/18/2025 [facility] Work Phone: Comment on above: Expected: 12/18/2024 , Expires: 12/18/2025 Start: 11-06-2024 End: 11-06-2024 Patient encounter procedure 11/06/2024 1:45 PM EDT Office Visit [facility] [address] [phone] Jaz Art PA-C [address] [place] [address] [facility] Start: 10-31-2024 End: 10-31-2024 Patient encounter procedure 10/31/2024 4:30 PM EDT Office Visit [facility] [address] [address] Isak Elliott MD [address] [place] [address] 3mo f/u [facility] Comment on above: 3mo f/u Start: 08-15-2024 End: 08-15-2024 ambulatory 08/15/2024 9:30 AM EST OT/PT/Speech Visit [facility] [address] [place] [phone] Shweta Hi, [facility] CLERK [address] [place] [address] History of traumatic brain injury [Z87.820] [facility] Comment on above: History of traumatic brain injury [Z87.820] Start: 07-30-2024 End: 07-30-2024 Patient encounter procedure 07/30/2024 12:40 PM EST Office Visit [facility] [address] [place] [address] Fidelina Fisher, AND TAXI INSTRUCTOR BUS TROLLEY.LEATHER COVERER [address] [place] [address] TBI (Traumatic Brain Injury) [facility] Comment on above: TBI (Traumatic Brain Injury) Start: 02-19-2024 Covid-19 Vaccine () Covid-19 Vaccine () [facility] Start: 02-19-2024 COVID-19 Vaccine ( season) COVID-19 Vaccine () [facility] Start: 02-19-2024 Influenza vaccination [facility] Start: 06-20-2023 Behavioral Health Screening Behavioral Health Screening [facility] Start: 02-18-2023 Covid-19 Vaccine () Covid-19 Vaccine () [facility] Start: 02-18-2023 Influenza vaccination C [facility] Start: 10-12-2022 End: 12-12-2022 ADMARK PHOSPHO-TAU TOTAL-TAU/AB42 CSF [facility] Work Phone: Comment on above: Expected: 10/12/2022 , Expires: 12/12/2022 Start: 10-12-2022 End: 12-12-2022 Reagin Ab [Titer] in Cerebral spinal fluid by VDRL [facility] Work Phone: Comment on above: Expected: 10/12/2022 , Expires: 12/12/2022 Start: 08-11-2022 End: 10-11-2022 Cell count panel - Cerebral spinal fluid CSF CELL COUNT Lab Routine Memory loss Expected: 08/11/2022, Expires: 10/11/2022 [facility] Work Phone: Comment on above: Expected: 08/11/2022 , Expires: 10/11/2022 Start: 08-11-2022 End: 10-11-2022 Glucose [Mass/volume] in Cerebral spinal fluid GLUCOSE CSF Lab Routine Memory loss Expected: 08/11/2022, Expires: 10/11/2022 [facility] Work Phone: Comment on above: Expected: 08/11/2022 , Expires: 10/11/2022 Start: 08-11-2022 End: 10-11-2022 MISC SEND OUT TST 1 MISC SEND OUT TST 1 Lab Routine Memory loss Expected: 08/11/2022, Expires: 10/11/2022 [facility] Work Phone: Comment on above: Expected: 08/11/2022 , Expires: 10/11/2022 Start: 08-11-2022 End: 10-11-2022 Protein [Mass/volume] in Cerebral spinal fluid PROTEIN CSF Lab Routine Memory loss Expected: 08/11/2022, Expires: 10/11/2022 [facility] Work Phone: Comment on above: Expected: 08/11/2022 , Expires: 10/11/2022 Start: 08-11-2022 End: 10-11-2022 Reagin Ab [Titer] in Cerebral spinal fluid by VDRL VDRL CSF Lab Routine Memory loss Expected: 08/11/2022, Expires: 10/11/2022 [facility] Work Phone: Comment on above: Expected: 08/11/2022 , Expires: 10/11/2022 Start: 08-11-2022 End: 10-11-2022 TOURTELLOTTE BLOOD TOURTELLOTTE BLOOD Lab Routine Memory loss Expected: 08/11/2022, Expires: 10/11/2022 [facility] Work Phone: Comment on above: Expected: 08/11/2022 , Expires: 10/11/2022 Start: 06-20-2022 [facility]PRESS[facility]MENT [facility] Start: 02-18-2022 Influenza vaccination INFLUENZA (#1) [facility] Start: 06-20-2021 DEPRESSION ASSESSMENT DEPRESSION ASS [facility] [facility] Start: 05-29-2021 COVID-19 VACCINE (3 - Booster for Pfizer series) COVID-19 VACCINE (3 - Booster for Pfizer series) [facility] Start: 05-29-2021 COVID-19 VACCINE (3 - Pfizer series) COVID-19 VACCINE (3 - Pfizer series) [facility] Start: 2020 PROSTATE CANCER SCREENING DISCUSSION PROSTATE CANCER SCREENING DISCUSSION [facility] Start: 2020 Prostate specific antigen measurement Prostate Cancer Screening Discussion [facility] Start: 2015 Administration of varicella zoster vaccine Zoster (Shingles) Vaccine (1 of 2) [facility] Start: 2015 Pneumococcal Vaccine : 50+ (1 of 1 - PCV) Pneumococcal Vaccine: 50+ (1 of 1 - PCV) [facility] Start: 2015 SHINGRIX VACCINE (1 of 2) SHINGRIX VACCINE (1 of 2) [facility] Start: 2010 COLOGUARD (FIT-DNA) COLOGUARD (FIT-D NA) [facility] Start: 2010 Colonoscopy COLONOSCOPY [facility] Start: 2010 COLORECTAL CANCER SCREENING COLORECTAL CANCER SCREENING [facility] Start: [address] COLONOGRAPHY [facility] Start: 2010 DIABETES SCREEN DIABETES SCREEN [facility] Start: 2010 FECAL OCCULT BLOOD FECAL OCCULT BLOO D [facility] Start: 2010 Screening for malign ant neoplasm of colon [facility] Start: 2010 SIGMOIDOSCOPY SIGMOIDOSCOPY [facility] Start: 2000 Lipid 1996 panel - S flakita or Plasma Lipid Screening [facility] Start: 2000 Lipid panel Lipid Screening [facility] Start: 2000 LIPID SCREEN LIPID SCREEN [facility] Start: 1984 Hepatitis B Vaccine (1 of 3 - 19+ 3-dose series) Hepatitis B Vaccine (1 of 3 - 19+ 3-dose series) [facility] Start: 1984 Urine microalbumin profile [facility] Start: 1983 Adult BMI Follow Up Plan Adult BMI Follow Up Plan [facility] Start: 1983 Anxiety Screening Anxiety Screening [facility] Start: 1983 Depression Screening Depression Scre ening [facility] Start: 1983 HEPATITIS C SCREENING HEPATITIS C [facility] Start: 1983 Hepatitis C screening Hepatitis C [facility] Start: 1983 HIV SCREENING HIV SCREENING [facility] Start: 1977 Depression Screening Depression Scre ening [facility] Start: 1965 HEPATITIS B (1 of 3 - 3-dose series) HEPATITIS B (1 of 3 - 3-dose series) [facility] Start: 1965 Hepatitis B Vaccine (1 of 3 - 3-dose series) Hepatitis B Vaccine (1 of 3 - 3-dose series) [facility] End: 07-06-2024 ECG 12 lead ECG 12 lead ECG Routine Once for 1 Occurrences starting 07/06/2024 until 07/06/2024 [employer] Comment on above: Once for 1 Occurrenc es starting 07/06/2024 until 07/06/2024 End: 10-15-2025 EEG EEG Neurology Routine Dementia with behavioral disturbance (CMS-HCC) Episode of confusion 1 Occurrences starting 10/15/2024 until 10/15/2025 [employer] Work Phone: Comment on above: 1 Occurrences starti ng 10/15/2024 until 10/15/2025 End: 08-11-2023 LUMBAR PUNCTURE/YESICA LUMBAR PUNCTURE/YESICA NEUROLOGY Routine Memory loss 1 Occurrences starting 08/11/2022 until 08/11/2023 [facility] Work Phone: Comment on above: 1 Occurrences starti ng 08/11/2022 until 08/11/2023 End: 10-13-2023 LUMBAR PUNCTURE/YESICA LUMBAR PUNCTURE/YESICA NEUROLOGY Routine Memory loss 1 Occurrences starting 10/12/2022 until 10/13/2023 [facility] Work Phone: Comment on above: 1 Occurrences starti ng 10/12/2022 until 10/13/2023 Oxygen Therapy - Maintain SpO2: 90%; *POLITICAL THEORY PROFESSOR Guidelines for O2: Yes; Document: \[employer]\epi c\EPIC_Reference\Orders\ Respiratory Care Guidelines\CPG Oxygen 2022.pdf Oxygen Therapy - Maintain SpO2: 90%; *POLITICAL THEORY PROFESSOR Guidelines for O2: Yes; Document: \Easy [employer].org\ep ic\EPIC_Reference\Order s\Respiratory Care Guidelines\CPG Oxygen 2022.pdf Respiratory Care Routine As Needed until discontinued starting 07/06/2024 [employer] Comment on above: As Needed until disc ontinued starting 07/06/2024 End: 01-01-2024 PAP TITRATION PSG (CPAP, BIPAP, ASV) PAP TITRATION PSG (CPAP, BIPAP, ASV) Procedures Routine Obstructive sleep apnea 1 Occurrences starting 12/02/2022 until 01/01/2024 [facility] Work Phone: Comment on above: 1 Occurrences [...] Procedures Routine Bilateral impacted cerumen Ordered: 04/22/2022 [facility] Work Phone: Comment on above: Ordered: 04/22/2022 TOURTELLOTTE CSF TOURTELLOTTE CS F Lab Routine Memory loss Ordered: 08/11/2022 [facility] Work Phone: Comment on above: Ordered: 08/11/2022 [facility] Immunizations Immunization Date Immunization Notes Care Provider Genna amaro 11-24-2019 tetanus toxoid, redu zenia diphtheria toxoid, and acellular pertussis vaccine, adsorbed Kelly Johnson [facility] Payers Date Payer Category Payer Medicare DEVOTED MEDICARE DEVOTED HEALTH [place] PPO [id number] 2024-Present [phone] [address] [place] [id number] PPO [id number] 2024 Medicare HMO [id number] 2024 Private Health Insurance DEVOTED MEDICARE [id number] 2024 Medicare [id number] 2024 Self-pay 2024 Unknown [id number] 2024 Unknown [id number] 2021 Unknown [id number] 1.13.159.2. [id number] 1965 Unknown [id number] 2.16.840.1.028763.3.579.2. 647 1965 Unknown [id number] 2.16.840.1.157107.3.579.2. 647 1965 Unknown [id number] 2.16.840.1.658473.3.579.2. 593 1965 Unknown [id number] 2.16.840.1.060668.3.579.2. 593 1965 Unknown [id number] 2.16.840.1.385745.3.579.2. 593 1965 Unknown [id number] 2.16.840.1.384619.3.579.2. 1286 1965 Unknown [id number] 2.16.840.1.704592.3.579.2. 727 1965 Unknown [id number] 2.16.840.1.834195.3.579.2. 727 1965 Unknown [id number] 2.16.840.1.041186.3.579.2. 727 1965 Unknown [id number] 2.16.840.1.363616.3.579.2. 1285 1965 Unknown [id number] 2.16.840.1.225467.3.579.2. 1285 1965 Unknown [id number] 2.16.840.1.602927.3.579.2. 1285 1965 Unknown [id number] 2.16.840.1.095303.3.579.2. 1285 1965 Unknown [id number] 2.16.840.1.501529.3.579.2. 1285 1965 Unknown [id number] 2.16.840.1.531420.3.579.2. 1285 1965 Unknown [id number] 2.16840.1.021065.3.579.2. 1285 1965 Unknown [id number] 2.16840.1.149783.3.579.2. 1285 1965 Unknown [id number] 2.16.840.1.612441.3.579.2. 1285 1965 Unknown [id number] 2.16.840.1.638830.3.579.2. 1285 1965 Unknown [id number] 2.16840.1.250966.3.579.2. 1285 1965 Unknown [id number] 2.16.840.1.572388.3.579.2. 1285 1965 Unknown [id number] 2.16.840.1.434450.3.579.2. 1285 1965 Unknown [id number] 2.16.840.1.688337.3.579.2. 1285 1965 Unknown [id number] 2.16.840.1.340189.3.579.2. 1285 1965 Unknown [id number] 2.16840.1.532577.3.579.2. 1286 1965 Unknown [id number] 2.16.840.1.003794.3.579.2. 1286 1965 Unknown [id number] 2.16.840.1.258550.3.579.2. 1286 1965 Unknown [id number] 2.16.840.1.500897.3.579.2. 1286 1959 Unknown [id number] 1959 Unknown [id number] Unknown [id number] 2.16.840.1.765896.3.579.2. 531 Unknown [id number] 2.16.840.1.669155.3.579.2. 531 Social History Date Type Detail Facility Start: 04-22-2022 End: 03-27-2025 Tobacco smoking status NHIS Never smoked tobacco [facility] Start: 04-22-2022 End: 03-27-2025 Tobacco use and exposure Smokeless tobacco non-user [facility] Start: 04-22-2022 End: 07-30-2024 Alcohol intake Ex-drinker (finding) [facility] Start: 1965 Sex Assigned At Not on file [facility] Start: 04-12-2022 End: 05-07-2022 Exposure to SARS-CoV-2 (event) Not sure [facility] Start: 07-31-2020 End: 10-12-2022 History of Social function [facility] Start: 07-31-2020 End: 10-12-2022 Tobacco use panel [facility] Adult Depression Screening Assessment 2 [facility] Start: 1965 Sex Assigned At Male F [facility] Start: 07-11-2024 End: 03-27-2025 Alcoholic beverage intake Current non-drinker of alcohol (finding) [facility] Start: 01-23-2015 Sex Male (finding) [facility] Has the electric, [employer], [email or web address], or water [employer] threatened to shut off services in your home in past 12Mo No [facility] History of tobacco use Passive smoker [facility] Medical Equipment Procedure Code Equipment Code Equipment Origin al Text Equipment Identifier Dates Start: 09-07-2018 End: 03-27-2025 Goals Date Patient Goal Desired Activity /State [...] Assessment Result Facility 06-21-2024 Functional Status No [facility] 01-11-2024 Functional Status N/A [facility] Mental Status Date Assessment Result Facility [facility] Clinical Notes 07-24-2020 to 03-27-2025 FRAN Henson - 03/27/2025 1:15 PM EDTCONY Henson CNP - 03/27/2025 1:15 PM EDTPatient InstructionsTelephone Encounter - Roberta Bui RN - 12/18/2024 11:44 AM EDT Note Date & Type Note Facility 03-27-2025 History and physical note PRE-ADMISSION TESTING HISTORY AND PHYSICAL EXAM DATE: 03/27/25 PCP: JAE LOPEZ MD CHIEF COMPLAINT: dementia HISTORY OF PRESENT ILLNESS: Estella Jeffery, a 59 y.o. male, presents to [facility] with and sister for a pre-surgical H&P. The patient has a history of dementia, seizures and fall in May 2024. Family reports declining cognition and balance issues. Brain MRI found a small possible colloid cyst. Family states patient is slowing improving but in the past months was more lethargic and had been dealing with hypotension. He is in a wheelchair and does stand briefly. He is working with PT. Patient denies headaches, vision changes, chest pain, or shortness of breath. Family denies recent illness or previous anesthesia problems. PAST MEDICAL HISTORY: Past Medical History: Diagnosis Date Anxiety Benign prostatic hyperplasia Bradycardia 10/19/2024 Dementia with behavioral disturbance ([facility]) 07/06/2024 Depression Dizziness Fall 05/2024 down stairs GERD (gastroesophageal reflux disease) High cholesterol HL (hearing loss) Low platelet count 10/2024 Memory loss Orthostatic hypotension 11/06/2024 Perforated sigmoid colon ([facility]) Seizures ([facility]) ast one 02/19/2025 Sleep apnea no machine Syncope 10/2024 Visual impairment reading glasses PAST SURGICAL HISTORY: Past Surgical History: Procedure Laterality Date ARM EXPLORATION WITH REPAIR LACERATED ULNAR ARTERY Left 11/24/2019 Performed by Skyler Bowen MD at [facility] COLONOSCOPY JANICE 3YEARS AGO COLOSTOMY 09/2018 COLOSTOMY CLOSURE 11/2018 HERNIA REPAIR 2020 multiple hernias PUNCTURE LUMBAR N/A 07/10/2024 Performed by Zach Nails MD at [facility] FAMILY HISTORY: Family History Problem Relation Age of Onset Breast cancer Sister Anesthesia problems Neg Hx SOCIAL HISTORY: The patient reports no history of alcohol use. He reports that he has never smoked. He has been exposed to tobacco smoke. He has never used smokeless tobacco. He reports no history of drug use. ALLERGIES: Allergies Allergen Reactions Ativan [Lorazepam] Abnormal Behavior Diphenhydramine Abnormal Behavior MEDICATIONS: Current Outpatient Medications: folic acid (FOLVITE) 1 mg tablet, Take 1 tablet (1 mg total) by mouth in the morning., Disp: , Rfl: melatonin 10 mg tablet, Take 1 tablet by mouth nightly., Disp: , Rfl: midodrine (PROAMATINE) 2.5 mg tablet, Take 1 tablet (2.5 mg total) by mouth 2 (two) times a day. SBP <110, Disp: , Rfl: OXcarbazepine (TRILEPTAL) 300 mg tablet, Take 1 tablet (300 mg total) by mouth in the morning and 1 tablet (300 mg total) before bedtime. Currently just in the morning, seizures ., Disp: , Rfl: senna (SENOKOT) 8.6 mg tablet, Take 1 tablet (8.6 mg total) by mouth daily as needed for constipation Indications: constipation., Disp: , Rfl: traZODone (DESYREL) 50 mg tablet, Take 1 tablet (50 mg total) by mouth nightly Indications: insomnia associated with depression., Disp: , Rfl: REVIEW OF SYSTEMS: Review of Systems Constitutional: Negative for fever and chills. HENT: Negative for congestion and rhinorrhea. Respiratory: Negative for cough and shortness of breath. Cardiovascular: Negative for chest pain and palpitations. Gastrointestinal: Negative for diarrhea and constipation. Genitourinary: Positive for bladder incontinence (wears briefs). Negative for difficulty urinating. Musculoskeletal: Positive for gait problem. Neurological: Positive for seizures (last one 02/2025). Negative for headaches. VITAL SIGNS: BP 123/80 Pulse 105 Temp 36.1 C (96.9 F) (Temporal) Resp 18 Ht 165.1 cm (5' 5 ) Wt 69.3 kg (152 lb 12.5 oz) SpO2 97% BMI 25.42 kg/m PHYSICAL EXAM: Physical Exam Vitals reviewed. Constitutional: Appearance: Normal appearance. HENT: Head: Normocephalic. Mouth/Throat: Mouth: Mucous membranes are moist. Pharynx: Oropharynx is clear. Cardiovascular: Rate and Rhythm: Normal rate and regular rhythm. Heart sounds: Normal heart sounds. Pulmonary: Effort: Pulmonary effort is normal. Breath sounds: Normal breath sounds. Abdominal: General: Bowel sounds are normal. Palpations: Abdomen is soft. Musculoskeletal: Comments: In wheelchair Skin: General: Skin is warm and dry. Capillary Refill: Capillary refill takes less than 2 seconds. Neurological: Mental Status: He is alert. PERTINENT TESTING AVAILABLE IN [facility] (WITHIN THE PAST 2 YEARS): EK10/19/2024 Echo: Echo complete W/O contrast 10/22/2024 Interpretation Summary Left Ventricle: Left ventricle appears normal in size. Systolic function is normal with an ejection fraction of 60-65%. No significant valvular stenosis or regurgitation. Echo complete W/O contrast Result Date: 10/22/2024 Left Ventricle: Left ventricle appears normal in size. Systolic function is normal with an ejection fraction of 60-65%. No significant valvular stenosis or regurgitation. Stress test: No results found. Cardiac catheterization: No results found. Holter: No results found. Carotids: No results found. Pulmonary function testing: No results found. RECENT LABS: Lab Results Component Value Date WBC 3.8 (L) 10/24/2024 HGB 13.0 10/24/2024 HCT 38.9 (L) 10/24/2024 PLT 56 (L) 10/24/2024 INR 1.1 10/19/2024 PTT 29 10/19/2024 SODIUM 139 10/24/2024 K 4.2 10/24/2024 CL 104 10/24/2024 CO2 29 10/24/2024 CALCIUM 8.2 (L) 10/24/2024 ALKPHOS 34 (L) 10/19/2024 ALBUMIN 3.0 (L) 10/19/2024 GLU 84 10/24/2024 HGBA1C 5.9 05/10/2016 ALT 12 10/19/2024 AST 16 10/19/2024 CREATININE 1.13 10/24/2024 BUN 23 10/24/2024 EGFR 75 10/24/2024 *Please note that labs listed above are the most recent lab values available in [facility] at the time of the appointment. ASSESSMENT / DIAGNOSIS: Dementia with behavioral disturbance PLAN: Estella Jeffery is scheduled for MR BRAIN W WO CONT on April 10, 2025. Testing performed in Pre-Admission Clinic today: Labs - see [facility] for results. FRAN Henson 03/27/25 1447 FRAN Henson 03/27/25 1447 [facility] 03-27-2025 History and physical note PRE-ADMISSION TESTING HISTORY AND PHYSICAL EXAM DATE: 03/27/25 PCP: JAE LOPEZ MD CHIEF COMPLAINT: dementia HISTORY OF PRESENT ILLNESS: Estella Jeffery, a 59 y.o. male, presents to [facility] with and sister for a pre-surgical H&P. The patient has a history of dementia, seizures and fall in May 2024. Family reports declining cognition and balance issues. Brain MRI found a small possible colloid cyst. Family states patient is slowing improving but in the past months was more lethargic and had been dealing with hypotension. He is in a wheelchair and does stand briefly. He is working with PT. Patient denies headaches, vision changes, chest pain, or shortness of breath. Family denies recent illness or previous anesthesia problems. PAST MEDICAL HISTORY: Past Medical History: Diagnosis Date Anxiety Benign prostatic hyperplasia Bradycardia 10/19/2024 Dementia with behavioral disturbance ([facility]) 07/06/2024 Depression Dizziness Fall 05/2024 down stairs GERD (gastroesophageal reflux disease) High cholesterol HL (hearing loss) Low platelet count 10/2024 Memory loss Orthostatic hypotension 11/06/2024 Perforated sigmoid colon ([facility]) Seizures ([facility]) ast one 02/19/2025 Sleep apnea no machine Syncope 10/2024 Visual impairment reading glasses PAST SURGICAL HISTORY: Past Surgical History: Procedure Laterality Date ARM EXPLORATION WITH REPAIR LACERATED ULNAR ARTERY Left 11/24/2019 Performed by Skyler Bowen MD at [facility] COLONOSCOPY JANICE 3YEARS AGO COLOSTOMY 09/2018 COLOSTOMY CLOSURE 11/2018 HERNIA REPAIR 2020 multiple hernias PUNCTURE LUMBAR N/A 07/10/2024 Performed by Zach Nails MD at [facility] FAMILY HISTORY: Family History Problem Relation Age of Onset Breast cancer Sister Anesthesia problems Neg Hx SOCIAL HISTORY: The patient reports no history of alcohol use. He reports that he has never smoked. He has been exposed to tobacco smoke. He has never used smokeless tobacco. He reports no history of drug use. ALLERGIES: Allergies Allergen Reactions Ativan [Lorazepam] Abnormal Behavior Diphenhydramine Abnormal Behavior MEDICATIONS: Current Outpatient Medications: folic acid (FOLVITE) 1 mg tablet, Take 1 tablet (1 mg total) by mouth in the morning., Disp: , Rfl: melatonin 10 mg tablet, Take 1 tablet by mouth nightly., Disp: , Rfl: midodrine (PROAMATINE) 2.5 mg tablet, Take 1 tablet (2.5 mg total) by mouth 2 (two) times a day. SBP <110, Disp: , Rfl: OXcarbazepine (TRILEPTAL) 300 mg tablet, Take 1 tablet (300 mg total) by mouth in the morning and 1 tablet (300 mg total) before bedtime. Currently just in the morning, seizures ., Disp: , Rfl: senna (SENOKOT) 8.6 mg tablet, Take 1 tablet (8.6 mg total) by mouth daily as needed for constipation Indications: constipation., Disp: , Rfl: traZODone (DESYREL) 50 mg tablet, Take 1 tablet (50 mg total) by mouth nightly Indications: insomnia associated with depression., Disp: , Rfl: REVIEW OF SYSTEMS: Review of Systems Constitutional: Negative for fever and chills. HENT: Negative for congestion and rhinorrhea. Respiratory: Negative for cough and shortness of breath. Cardiovascular: Negative for chest pain and palpitations. Gastrointestinal: Negative for diarrhea and constipation. Genitourinary: Positive for bladder incontinence (wears briefs). Negative for difficulty urinating. Musculoskeletal: Positive for gait problem. Neurological: Positive for seizures (last one 02/2025). Negative for headaches. VITAL SIGNS: BP 123/80 Pulse 105 Temp 36.1 C (96.9 F) (Temporal) Resp 18 Ht 165.1 cm (5' 5 ) Wt 69.3 kg (152 lb 12.5 oz) SpO2 97% BMI 25.42 kg/m PHYSICAL EXAM: Physical Exam Vitals reviewed. Constitutional: Appearance: Normal appearance. HENT: Head: Normocephalic. Mouth/Throat: Mouth: Mucous membranes are moist. Pharynx: Oropharynx is clear. Cardiovascular: Rate and Rhythm: Normal rate and regular rhythm. Heart sounds: Normal heart sounds. Pulmonary: Effort: Pulmonary effort is normal. Breath sounds: Normal breath sounds. Abdominal: General: Bowel sounds are normal. Palpations: Abdomen is soft. Musculoskeletal: Comments: In wheelchair Skin: General: Skin is warm and dry. Capillary Refill: Capillary refill takes less than 2 seconds. Neurological: Mental Status: He is alert. PERTINENT TESTING AVAILABLE IN [facility] (WITHIN THE PAST 2 YEARS): EK10/19/2024 Echo: Echo complete W/O contrast 10/22/2024 Interpretation Summary Left Ventricle: Left ventricle appears normal in size. Systolic function is normal with an ejection fraction of 60-65%. No significant valvular stenosis or regurgitation. Echo complete W/O contrast Result Date: 10/22/2024 Left Ventricle: Left ventricle appears normal in size. Systolic function is normal with an ejection fraction of 60-65%. No significant valvular stenosis or regurgitation. Stress test: No results found. Cardiac catheterization: No results found. Holter: No results found. Carotids: No results found. Pulmonary function testing: No results found. RECENT LABS: Lab Results Component Value Date WBC 3.8 (L) 10/24/2024 HGB 13.0 10/24/2024 HCT 38.9 (L) 10/24/2024 PLT 56 (L) 10/24/2024 INR 1.1 10/19/2024 PTT 29 10/19/2024 SODIUM 139 10/24/2024 K 4.2 10/24/2024 CL 104 10/24/2024 CO2 29 10/24/2024 CALCIUM 8.2 (L) 10/24/2024 ALKPHOS 34 (L) 10/19/2024 ALBUMIN 3.0 (L) 10/19/2024 GLU 84 10/24/2024 HGBA1C 5.9 05/10/2016 ALT 12 10/19/2024 AST 16 10/19/2024 CREATININE 1.13 10/24/2024 BUN 23 10/24/2024 EGFR 75 10/24/2024 *Please note that labs listed above are the most recent lab values available in [facility] at the time of the appointment. ASSESSMENT / DIAGNOSIS: Dementia with behavioral disturbance PLAN: Estella Jeffery is scheduled for MR BRAIN W WO CONT on April 10, 2025. Testing performed in Pre-Admission Clinic today: Labs - see [facility] for results. FRAN Henson 03/27/25 1447 FRAN Henson 03/27/25 1447 documented in this encounter [facility] 03-27-2025 Instructions Kari Velasco RN - 03/27/2025 1:15 PM EDT Your surgery/procedure is scheduled at [facility] on 04/10/2025 at 12:30 pm Arrival Time 10:30 am [facility] Address: [address] [place] [address]. [address] in [address] Parking lot located on [facility]. Report to the Entrance B. Check in at the information desk. The waiting room is located on the second floor. If you have any questions prior to surgery, please call Pre-Admission Clinic at [phone] between 7:30 am and 4:30 pm Tuesday through Tuesday. If you have questions the morning of surgery, please call the Pre-op Department at [phone]. Notify your SURGEON if you develop any illness such as a cold, cough, fever, sore throat, vomiting or are hospitalized between now and your surgery. Medication Instructions (Do not stop your medications without consulting the prescribing physician). Take the following medications the morning of surgery with a sip of water: oxcarbazepine, midodrine-if needed Diabetic or Weight loss medications: N/A Take inhalers as prescribed the morning of surgery. Due to the risk associated with these medications. If these medications are not held per instruction below, your surgery is at an increased risk for cancellation. SGLT2 Medications- Hold 3 days prior to surgery: Jardiance, Empagliflozin, Farxiga, Dapagliflozin, Invokana, Canagliflozin, Trijardy, Synjardy GLP-1 Medications (Injection or Pill)- If taken daily hold day of surgery. If taken weekly, hold 1 week prior to surgery: Adlyxin, Byetta, Bydureon, Ozempic, Rybelsus,Trulicity, Victoza, Wegovy, Lixisenatide, Exenatide, Semaglutide, Dulaglutide, Liraglutide GIP/GLP-1(Injection or Pill)- If taken daily hold day of surgery. If taken weekly, hold 1 week prior to surgery: Mounjaro . Blood thinners: Please contact your prescribing physician regarding a stop/hold date for these medications. Medications such as Coumadin, Heparin, Aspirin, Plavix, Eliquis, Pradaxa Diabetics: If you take insulin, contact your prescribing doctor for instructions on how to manage this the night before and the morning of surgery. Non-steriodal Anti-Inflammatory Drugs (NSAIDS)- Hold 3 days prior to surgery unless otherwise directed by your surgeon. Vitamins/Herbal Products: You may continue to take your prescribed vitamins such as potassium, iron, vitamin B, vitamin C, or multivitamin unless specifically instructed by your surgeon to hold. STOP taking all herbal products/teas one week prior to your surgery. Marijuana: Stop marijuana 72 hours prior to surgery, stop CBD oil 48 hours prior to surgery. If you have been given bowel prep instructions by your surgeon, please call the surgeon's office with any questions about these instructions. What do I do the day of Surgery? Age 2 through adult - Stop all solids by midnight, You may have a small amount of clear liquids up to 2 hours before surgery, unless otherwise instructed by your surgeon. Clear liquids are: water, sports drinks such as Gatorade or G2, or apple juice. You may NOT have: tube feedings, dairy products, alcoholic beverages, orange juice, or any liquids with solids or pulp in it. If applicable, shower again with CHG soap the morning of your surgery. In order to help prevent infection post-operatively, you may be asked to use a CHG mouthwash when you arrive to the Pre-op area. Your nurse will provide instruction the morning of. What do I need to do to prepare for surgery? If you will be going home the same day as your surgery, arrange for an adult over [address] Riding in a bus or taxi by yourself is not permitted. You should not smoke or drink alcohol 24 hours before your surgery. Alcohol thins the blood and may cause bleeding problems during surgery. Smoking increases the risk of breathing problems after surgery. Do not use lotions, creams, powders, perfume, make up, cologne or after-shaves day of surgery. Remove ALL jewelry including wedding rings, body piercings (including dermal piercing's, hair extensions that contain metal, nail turkmen, make-up, and contact lens. You may brush your teeth the morning of surgery, but do not swallow the water. Wear your dentures and partial plates to the hospital (no adhesive). Shower the night before your procedure. If applicable, use the CHG (chlorhexidine gluconate) soap or wipes. Place clean linens on your bed after showering and put on freshly laundered nightclothes. Do not allow pets to sleep in your bed What should I bring to the hospital? Eyeglass or contact lens case If you will be spending the night, please bring personal care items and leave them in the car until you are taken to your room after surgery. Leave ALL valuables at home. If any of these instructions conflict with those you received from the surgeon, please seek clarification from your surgeon's office. DEEP BREATHING EXERCISES This exercise helps promote good air exchange and helps to prevent pneumonia after surgery. Breathe in slowly and deeply through the nose. Hold your breath for a few seconds and then exhale slowly through the mouth. Repeat this three times and then cough.Coughing helps to clear your lungs. If you have had a surgery with an incision into your abdomen or chest, press gently against your incision with a pillow or a folded blanket when you cough. Please be aware - it may not be ward to cough following some types of surgeries involving the eyes, ears, sinuses and throat. Always follow your doctor's instructions. LEG EXERCISE These exercises help promote good circulation and help to prevent blood clots after surgery. Point your toes to the ceiling and then point them to the wall. Do this slowly about 15-20 times. You may also move your feet in circles. Do the exercise that is most comfortable for you. If you have had surgery involving your shoulder or arm, we recommend you move your fingers. PRACTICING We ask that you begin practicing these exercises before your surgery. After surgery try to do both exercises at least every 2 hours during the day and early evening. Surgical Site Infection Prevention What is a Surgical Site Infection (SSI)? Infection can happen to the area of the body where surgery is done. This is called a surgical site infection (SSI). A SSI does not happen very often. What are some of the things that hospitals are doing to prevent SSIs? Soap and water or alcohol hand rub are used before and after caring for each patient. Special soap is used to clean surgery workers hands and arms just before the surgery. Masks, gowns, gloves and hair covers are worn during the surgery to keep the area clean. Hair in the surgery area may be removed with clippers (not razors). A special soap that kills germs is used to clean the skin at the surgery site. Antibiotics may be given before the surgery starts. What can you do to prevent SSIs? Before surgery: You may be asked to shower or bathe with a special soap that kills germs the night before and the day of surgery. Use the soap as you were told. Place clean sheets on your bed the night before surgery and do not allow your pets in your bed. If you smoke or vape, stop or cut down. This creates a stress response in your body that increases inflammation, constricts blood vessels and deprives your tissues of oxygen. After surgery, this stress response disrupts the travel of oxygen, nutrients, and blood to your surgical site, interfering with the wound healing process. It also decreases the ability of your cells to fight infection. Ask your doctor about ways to quit. If you have high blood sugars or diabetes please talk with your doctor about having healthy blood sugar levels to promote healing. Do not shave near where you will have surgery. Shaving can irritate the skin and make it easier to get and infection. After surgery: Be sure that the doctors and nurses clean their hands before and after touching you. Be sure your family and friends clean their hands before and after visiting you. Do not be afraid to remind them. Always wash your hands before touching your incisional area. * Care for your wound at home as told by your doctor or nurse * Call your doctor right away if you have fever, redness, increased pain, or drainage at the surgery site. Can SSIs be treated? Antibiotics are used to treat SSI. Some patients may need another surgery to treat the infection. The doctor will discuss treatment options with you. Further questions? Contact the doctor, nurse or the Infection Prevention and Control department if you have any questions. PATIENT RIGHTS AND RESPONSIBILITIES As a patient at [facility], you have the right to: Receive medical care and be informed of who is taking care of you Be treated with dignity and respect Have a family member/field support representative of choice and your physician notified of your admission Receive information and actively participate in decisions about your care and treatment Refuse care, treatment and services Decide who may provide your support and speak for you Access christian and spiritual services Participate in ethical issues and questions about your care Receive private and confidential care Have appropriate assessment and management of your pain Know guest visitation restrictions or limitations Have an advance directive Access protective services Consent or refuse to participate in research studies or production or recordings, films or other images Have resolution of your complaints Receive information of hospital charges and payment methods Patient/patient field support representative responsibilities are to: Provide information about health status to facilitate care, treatment and services Follow the treatment, plan, keep appointments and speak up when you do not understand the plan Respect the rights of other patients and healthcare personnel Follow organizational rules and regulations that support quality care and a safe environment Fulfill financial obligations as promptly as possible documented in this encounter [facility] 02-15-2025 Note Attestation signed by Bailey Berg [...] Patient Name: Estella Jeffery MRN / CSN: [id number] Date of / Age: 1 1965 / 59 y.o. / male Encounter Date: 02/15/25 Diagnosis: The encounter diagnosis was Major neurocognitive disorder due to Alzheimer disease, with behavioral disturbance ([facility]). Care Team Encounter Provider: Bailey Berg MD [...] history of Alzheimer's dementia presenting to the [facility] for a psychiatric [...] Seroquel - effect (more content not included)... [facility] 12-18-2024 Miscellaneous Notes Kari calls stating that Estella needed to be sedated for his last MRI due to anxiety. Discussed options and ultimately, decision for MRI with anesthesia is to be ordered due to his issues. documented in this encounter [facility] 12-18-2024 Telephone encounter Note Kari calls stating that Estella needed to be sedated for his last MRI due to anxiety. Discussed options and ultimately, decision for MRI with anesthesia is to be ordered due to his issues. [facility] 11-06-2024 History of Present illness Narrative Estella Jeffery Date of visit: 11/06/2024 Date of : 1965 Age: 59 y.o. Patient Active Problem List Diagnosis Laceration of left ulnar artery Dementia with behavioral disturbance ([facility]) Altered mental status Status post colostomy, follow-up exam ([facility]) Bradycardia Orthostatic hypotension Allergies Allergen Reactions Ativan [...] SCHED W/ History of Present Illness Estella Duarte Jeffery patient is a 59-year-old male with [...] 11/24/2019 Performed by Skyler Bowen MD at [facility] COLONOSCOPY JANICE 3YEARS AGO COLOSTOMY CLOSURE PUNCTURE LUMBAR N/A 07/10/2024 Performed by Zach Nails MD at [facility] Family History Problem Relation Age of [...] of early-onset Alzheimer's dementia underwent testing at [facility] Patient is stable from a cardiovascular standpoint he may follow up in about 9 months or sooner as needed. TODAYS ORDERS No orders of the defined types were placed in this encounter. FOLLOW UP Return in about 1 year (around 11/06/2025). PCP: JAE LOPEZ MD Referring Physician: Jae Lopez MD [address] [place] [address] Jaz Art PA-C 11/06/24 1511 documented in this encounter [employer] 11-06-2024 Instructions Jaz Art PA-C - 11/06/2024 [...] months documented in this encounter [facility] 10-23-2024 Miscellaneous Notes Contract: [id number] [phone] [facility] Erik re hypotension room B646 tx germaine ---I sent a secure chat message to Shayla Haynes documented in this encounter [facility] 10-23-2024 Telephone encounter Note Contract: [phone] [facility] Erik re hypotension room B646 tx germaine ---I sent a secure chat message to Shayla Haynes [facility] 10-15-2024 History of Present illness Narrative [...] had previously been seeing neurology at the [facility]. His last clinic visit related to this was through a telemedicine encounter on 11/17/[address] Agustina Plascencia. Based on that note Mr. Jeffery noticed more significant memory issues around 2021. 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 Mr. Jeffery was admitted to the [facility] on 07/20/2024 - 07/20/2024 after experiencing more [...] and cranio-cervical junction. Flow voids documented in [place] and dural venous sinuses. No [...] hemoglobin 13.9, hematocrit 41.8, platelets 180 From [facility] note dated 11/17/2022 : MRI 2021: No [...] ulnar artery Dementia with behavioral disturbance ([facility]) Altered mental status Status post colostomy, follow-up exam ([facility]) Past Surgical History: Procedure Laterality Date ARM EXPLORATION WITH REPAIR LACERATED ULNAR ARTERY Left 11/24/2019 Performed by Skyler Bowen MD at [facility] COLONOSCOPY JANICE 3YEARS AGO COLOSTOMY CLOSURE PUNCTURE LUMBAR N/A 07/10/2024 Performed by Zach Nails MD at [facility] Family History Problem Relation Age of [...] that he can be managed at home. director of casework services was offered but they would like to [...] for this visit: Dementia with behavioral disturbance ([facility]) - Ambulatory referral to [facility] ([facility] Future - EEG; Future Colloid cyst of third ventricle ([facility]) - [facility] [place] [place]; Future Episode of confusion - EEG; Future documented in this encounter [facility] 07-30-2024 Note HNO ID: [id number] Author: FIDELINA FISHER APRN.LEATHER COVERER Service: ? Author Type: Nurse Practitioner Type: [...] in May 2024. He was evaluated at [facility] following the fall. Per he had an [...] surrounding doctors appointments, he associates doctors with long-term. Per family he had a rough admission with jalen at [facility] in [place]. He was started on Seroquel at bedtime. [...] Cognition: - has underline dementia. Following with [facility]. Sleep: - He has been having issues [...] and cranio-cervical junction. Flow voids documented in [place] and dural venous sinuses. No [...] jaundice UE SAB EF EE WE WF Support Analyst R 5/5 5/5 5/5 5/5 5/5 5/5 [...] in May 2024. He was evaluated at [facility] following the fall. He arrives today with his sister and for management following his TBI. Per and sister he has had significant change with his cognition since the f (more content not included)... [facility] 07-30-2024 History of Present illness Narrative July 30, 2024 Reason for visit: Patient presents with: Consult Previous Visit: No previous PM&R. HPI (brief) Estella Jeffery is a 59 year old male. PMHx of TBI and HDL. He had an unwitnessed fall down the stairs. Per family he had a fall in May 2024. He was evaluated at [facility] following the fall. Per he had an episode with agitation. Per family he was not displaying agitation prior to the fall. Family notes prior to his fall he was driving and independent with his care. He is now requiring a lot of assistance with care. Subjective: Patient presents with: Consult Family notes concerns with coordination. He has been following with [facility] for his dementia. Per his family his dementia symptoms seems to have worsen following his fall. He continues to have agitation surrounding doctors appointments, he associates doctors with long-term. Per family he had a rough admission with jalen at [facility] in [place]. He was started on Seroquel at bedtime. [...] Cognition: - has underline dementia. Following with [facility]. Sleep: - He has been having issues [...] and cranio-cervical junction. Flow voids documented in [place] and dural venous sinuses. No [...] jaundice UE SAB EF EE WE WF Support Analyst R 5/5 5/5 5/5 5/5 5/5 5/5 [...] in May 2024. He was evaluated at [facility] following the fall. He arrives today with [...] 294.20, ICD10: F03.90 - Will get updated [place] and scan in records. - CONSULT TO [...] which included preparing to see the patient, [id number] patient care, completing clinical documentation, performing a medically appropriate examination, counseling and educating the patient/family/caregiver, ordering medications, tests, or procedures and communicating results to the patient/family/caregiver. Fidelina Fisher APRN.[facility] documented in this encounter [facility] 07-22-2024 Nurse Note AVS discussed with patient and family, no further questions about discharge. No further needs identified. Patient taken downstairs by wheelchair to be driven home by . [employer] 07-22-2024 Plan of care note Problem: Safety [...] at the bedside 7. Instruct patient/ patient field support representative about use of safety devices 8. Include patient/ patient field support representative in decisions related to safety Outcome: Adequate for Discharge Problem: Knowledge Deficit Goal: Patient/patient field support representative demonstrates understanding of disease process, treatment [...] Score of =/> 25 or indicated by [facility] Assessment Goal: Patient should be free from fall Description: Interventions: 1. [facility] to environment 2. Hourly rounds addressing the [...] non-skid footwear 11. Teach patient and patient field support representative to maintain environment for safety and [...] (cane, walker) within reach 19. Request patient field support representative bring adaptive equipment/mobility aids from home or obtain and provide as needed 20. Consult pharmacy regarding effects of med's affecting mobility, cognition, and alternatives 21. Obtain physician order for PT if risk factors associated with mobility are present 22. Obtain physician order for OT as appropriate 23. Utilize diversional activities 24. Educate patient and patient field support representative how to maintain a safe environment during visitation times (notify nurse prior to leaving bedside) 25. Consider appropriateness of medical or non-medical officer psychiatry 26. Set up voiding schedule as appropriate (every 2 hours) Outcome: Adequate for Discharge [facility] [employer] 07-22-2024 Miscellaneous Notes Problem: Safety Goal: Patient [...] at the bedside 7. Instruct patient/ patient field support representative about use of safety devices 8. Include patient/ patient field support representative in decisions related to safety Outcome: Adequate for Discharge Problem: Knowledge Deficit Goal: Patient/patient field support representative demonstrates understanding of disease process, treatment [...] Score of =/> 25 or indicated by [facility] Assessment Goal: Patient should be free from fall Description: Interventions: 1. [facility] to environment 2. Hourly rounds addressing the [...] non-skid footwear 11. Teach patient and patient field support representative to maintain environment for safety and [...] (cane, walker) within reach 19. Request patient field support representative bring adaptive equipment/mobility aids from home or obtain and provide as needed 20. Consult pharmacy regarding effects of med's affecting mobility, cognition, and alternatives 21. Obtain physician order for PT if risk factors associated with mobility are present 22. Obtain physician order for OT as appropriate 23. Utilize diversional activities 24. Educate patient and patient field support representative how to maintain a safe environment [...] at the bedside 7. Instruct patient/ patient field support representative about use of safety devices 8. Include patient/ patient field support representative in decisions related to safety Outcome: Progressing Note: Evaluation of progress towards goal: pt remains free from injury. Family at bedside. Problem: Knowledge Deficit Goal: Patient/patient field support representative demonstrates understanding of disease process, treatment [...] be free from fall Description: Interventions: 1. [facility] to environment 2. Hourly rounds addressing the [...] non-skid footwear 11. Teach patient and patient field support representative to maintain environment for safety and [...] (cane, walker) within reach 19. Request patient field support representative bring adaptive equipment/mobility aids from home or obtain and provide as needed 20. Consult pharmacy regarding effects of med's affecting mobility, cognition, and alternatives 21. Obtain physician order for PT if risk factors associated with mobility are present 22. Obtain physician order for OT as appropriate 23. Utilize diversional activities 24. Educate patient and patient field support representative how to maintain a safe environment [...] be free from fall Description: Interventions: 1. [facility] to environment 2. Hourly rounds addressing the [...] non-skid footwear 11. Teach patient and patient field support representative to maintain environment for safety and [...] (cane, walker) within reach 19. Request patient field support representative bring adaptive equipment/mobility aids from home or obtain and provide as needed 20. Consult pharmacy regarding effects of med's affecting mobility, cognition, and alternatives 21. Obtain physician order for PT if risk factors associated with mobility are present 22. Obtain physician order for OT as appropriate 23. Utilize diversional activities 24. Educate patient and patient field support representative how to maintain a safe environment during visitation times (notify nurse prior to leaving bedside) 25. Consider appropriateness of medical or non-medical officer psychiatry 26. Set up voiding schedule as appropriate (every 2 hours) Outcome: Progressing Note: Evaluation of progress towards goal: pt remains free from falls. Fall precautions in place and family at bedside DISCHARGE PLANNING NOTE Junior Manufacturing Engineer spoke with MARCI Graf and with [employer]yl[employer] about current situation regarding appeal decision and DC plan to home with outpatient services. Junior Manufacturing Engineer placed a call to the who was in the patient's room due to the questions she had re: the discharge plan. Junior Manufacturing Engineer spoke with , Kari on 07/21/24 at 1325. Junior Manufacturing Engineer reviewed Eduardo's DC Appeal Determination Notification with the who confirmed that she had received a voicemail from [facility] this morning. Junior Manufacturing Engineer explained that Eduardo had agreed with the termination of hospital services after having reviewed the uploaded clinical documents from this hospitalization that justowriter operator had sent to them yesterday. expressed verbal understanding to justowriter operator of Eduardo's decision. Junior Manufacturing Engineer explained that patient's financial liability would begin at Noon on 07/22/24 and offered our care navigation assistance with obtaining transportation to home. had questions about why referrals were not made to [facility] that [facility], [facility] Junior Manufacturing Engineer explained to the that the patient did not meet the clinical criteria this time for a chcf/rehab facility level of care and reminded her that a discussion about this took place this past week/yesterday with the treatment team. explained that she never agreed to take her home and her and her family now want SNF placement. Junior Manufacturing Engineer continued to explain to the process [...] prior to bringing him to the hospital. Junior Manufacturing Engineer offered supportive listening to the and also offered for her to connect with patient's PCP, Dr. Lopez after she gets her home for resources. Junior Manufacturing Engineer also discussed the outpatient TBI clinic appointment that was being discussed yesterday and that information would be included on patient's after visit summary. Junior Manufacturing Engineer explained that if was not going to make arrangements to take patient home by noon on 07/22, that patient's financial responsibility of $2640.00 per day would begin. expressed verbal understanding to justowriter operator. Junior Manufacturing Engineer emailed financial responsibility form with instruction to [employer] charger insulation[employer]m COVARRUBIAS (and cce'd today's RN Lesia Felton for awareness) for bedside delivery today. is aware of pending paper copy delivery of this form. - NELLI GLEZ LEGAL AID CARE NAVIGATION 07/21/24 2:11 PM DISCHARGE PLANNING NOTE We have received DC Appeal Determination Notification from Daryl and BILL/Eduardo has agreed with the termination of services. Beneficiary liability begins 07.22.2024 by Noon. Beneficiary and/or beneficiary field support representative were to be notified of determination via phone call. Eduardo determination notification rec'd at [phone] and letter rec'd [phone] were received by justowriter operator via fax. Junior Manufacturing Engineer uploaded documents to document list. Documentation updated. Junior Manufacturing Engineer received forwarded voice mail 07/21/24 at [...] accept. Reference Case # given from Roger [id number]. Junior Manufacturing Engineer attempted to call Roger back on 07/21/24 at 1214 and justowriter operator rec'd auto message from Eduardo which stated only live phone calls with Eduardo are Tuesday thru Tuesday. Junior Manufacturing Engineer left voicemail citing reference case # [id number]. Junior Manufacturing Engineer stated reason for return phone call and requested call back from Roger. - NELLI GLEZ LEGAL AID CARE NAVIGATION 07/21/24 12:37 PM Problem: Safety [...] at the bedside 7. Instruct patient/ patient field support representative about use of safety devices 8. Include patient/ patient field support representative in decisions related to safety Outcome: Progressing Note: Evaluation of progress towards goal: Pain will be adequately controlled to allow for rest and adl's Problem: Knowledge Deficit Goal: Patient/patient field support representative demonstrates understanding of disease process, treatment [...] Score of =/> 25 or indicated by [facility] Assessment Goal: Patient should be free from fall Description: Interventions: 1. [facility] to environment 2. Hourly rounds addressing the [...] non-skid footwear 11. Teach patient and patient field support representative to maintain environment for safety and [...] (cane, walker) within reach 19. Request patient field support representative bring adaptive equipment/mobility aids from home or obtain and provide as needed 20. Consult pharmacy regarding effects of med's affecting mobility, cognition, and alternatives 21. Obtain physician order for PT if risk factors associated with mobility are present 22. Obtain physician order for OT as appropriate 23. Utilize diversional activities 24. Educate patient and patient field support representative how to maintain a safe environment [...] at the bedside 7. Instruct patient/ patient field support representative about use of safety devices 8. Include patient/ patient field support representative in decisions related to safety Outcome: Progressing Note: Evaluation of progress towards goal: pt remains free from injury Problem: Knowledge Deficit Goal: Patient/patient field support representative demonstrates understanding of disease process, treatment [...] Score of =/> 25 or indicated by [facility] Assessment Goal: Patient should be free from fall Description: Interventions: 1. [facility] to environment 2. Hourly rounds addressing the [...] non-skid footwear 11. Teach patient and patient field support representative to maintain environment for safety and [...] (cane, walker) within reach 19. Request patient field support representative bring adaptive equipment/mobility aids from home or obtain and provide as needed 20. Consult pharmacy regarding effects of med's affecting mobility, cognition, and alternatives 21. Obtain physician order for PT if risk factors associated with mobility are present 22. Obtain physician order for OT as appropriate 23. Utilize diversional activities 24. Educate patient and patient field support representative how to maintain a safe environment [...] discharge & we have received notification from [facility] that a DC appeal has been called in. The chart, DND form, & IMM have been successfully uploaded by justowriter operator to the O/Eduardo and successfully received by [facility]. [facility] will notify the of the patient of the appeal determination. Junior Manufacturing Engineer phone called patient's & read the DND notice to her. Paper copy of the DND notice to be delivered to the patient's bedside. Junior Manufacturing Engineer informed to anticipate phone call from [facility] re: determination of DC Appeal & encouraged wifeto answer the phone when [facility] calls. expressed verbal understanding of DND and the DC appeal process. - NELLI GLEZ LEGAL AID CARE NAVIGATION 07/20/24 5:13 PM Problem: Safety [...] at the bedside 7. Instruct patient/ patient field support representative about use of safety devices 8. Include patient/ patient field support representative in decisions related to safety Outcome: Progressing Note: Evaluation of progress towards goal: Patient remains injury free at this time. Problem: Knowledge Deficit Goal: Patient/patient field support representative demonstrates understanding of disease process, treatment [...] be free from fall Description: Interventions: 1. [facility] to environment 2. Hourly rounds addressing the [...] non-skid footwear 11. Teach patient and patient field support representative to maintain environment for safety and [...] (cane, walker) within reach 19. Request patient field support representative bring adaptive equipment/mobility aids from home or obtain and provide as needed 20. Consult pharmacy regarding effects of med's affecting mobility, cognition, and alternatives 21. Obtain physician order for PT if risk factors associated with mobility are present 22. Obtain physician order for OT as appropriate 23. Utilize diversional activities 24. Educate patient and patient field support representative how to maintain a safe environment [...] Hospital follow up with Fidelina Fisher CNP [facility] [place] [address] [place] [address] Confirmed with Taylor at [facility] she did receive the updated notes (neuro, PMR, PT/OT) that were faxed and uploaded to [facility]. She is almost finishing writing it up for physician review and will call us with their determination by 10am. 9:31 am Received call from Taylor at [facility] IPR-she reviewed updated notes with medical bill processor and they remain unable to accept after our 3rd request for review. She said he is doing too well functionally, does not need OT/PT services. She said after discussion with medical bill processor their facility would be of no benefit to the patient. This information was communicated to interdisciplinary team via epic chat DISCHARGE PLANNING NOTE Sent face sheet to [facility] for hospital transfer via secure fax to # [phone] DISCHARGE PLANNING NOTE Discharge plan- awaiting responses from [facility] if they can accept. Tasked [facility] to send neuro note from yesterday to them again. Tasked [facility] to fax his face sheet to [facility] per physician request since she is calling them about a hospital to hospital transfer per families request. Leadership team aware. - NANCY PARRISH 07/20/24 8:19 AM Discussed patient and d/c planning with leadership team. Everyone in agreement with d/c today since per physician [facility] can not accept as a hospital transfer and [facility] IPR has denied as well. Physician and this justowriter operator spoke with patient, and sister that is present re: d/c today and that patient will be going home with outpatient ST and an appointment has been made for a TBI clinic for follow up. Provided IMM to and explained. Leadership aware. - NANCY PARRISH 07/20/24 11:29 AM DISCHARGE PLANNING NOTE Neuro Note sent to [facility] (P# [phone] ; F# [phone]) in [facility] and via [employer]. Problem: Safety Goal: Patient will be injury free during hospitalization Description: INTERVENTIONS: 1. Assess patient's risk for falls and implement fall prevention plan of care per policy 2. Provide and maintain a safe environment 3. Proper use of double Identifiers 4. Medication administration using the 5 rights 5. Hand hygiene 6. Specimens are labeled at the bedside 7. Instruct patient/ patient field support representative about use of safety devices 8. Include patient/ patient field support representative in decisions related to safety Outcome: Progressing Note: Evaluation of progress towards goal: Pt remains free from injury and significant other at bedside Problem: Knowledge Deficit Goal: Patient/patient field support representative demonstrates understanding of disease process, treatment [...] Score of =/> 25 or indicated by [facility] Assessment Goal: Patient should be free from fall Description: Interventions: 1. [facility] to environment 2. Hourly rounds addressing the [...] non-skid footwear 11. Teach patient and patient field support representative to maintain environment for safety and [...] (cane, walker) within reach 19. Request patient field support representative bring adaptive equipment/mobility aids from home or obtain and provide as needed 20. Consult pharmacy regarding effects of med's affecting mobility, cognition, and alternatives 21. Obtain physician order for PT if risk factors associated with mobility are present 22. Obtain physician order for OT as appropriate 23. Utilize diversional activities 24. Educate patient and patient field support representative how to maintain a safe environment during visitation times (notify nurse prior to leaving bedside) 25. Consider appropriateness of medical or non-medical officer psychiatry 26. Set up voiding schedule as appropriate (every 2 hours) Outcome: Progressing Note: Evaluation of progress towards goal: pt remains free from falls and fall precautions are in place DISCHARGE PLANNING NOTE Updates to [facility] (P# [phone] ; F# [phone]) Occupational Therapy Treatment Discharge Recommendations OT Recommendations [...] therapy per MARCI Rothman Equipment: gait belt Telemetry/Cv Rn: No Oxygen Used: room air Other: fall [...] up w/mother's name; educated sister on playing [employer] songs from pt's younger years, to encourage [...] Date/Time User Outcome 07/19/24 1445 Yoanna Ellsworth KWADWO/Jerome Progressing 07/17/24 1439 KWADWO Hogan/Jerome Progressing Problem: [...] Date/Time User Outcome 07/19/24 1445 Yoanna Han-Mahoney, SPRING FORGER/L Progressing 07/17/24 1439 Yoanna Han-Mahoney, KWADWO/L Progressing Problem: Grooming Dates: Start: 07/13/24 Disciplines: OT Goal: Patient will perform grooming Independently Dates: Start: 07/13/24 Expected End: 08/13/24 Description: Goal Description: Disciplines: OT Outcomes Date/Time User Outcome 07/17/24 1439 Yoanna Han-Mahoney, SPRING FORGER/L Progressing Problem: Standing Balance Dates: Start: 07/13/24 Disciplines: OT Goal: Improve balance to normal Dates: Start: 07/13/24 Expected End: 08/13/24 Description: Normal dynamic balance. Disciplines: OT Outcomes Date/Time User Outcome 07/19/24 1445 Yoanna Han-Mahoney, SPRING FORGER/L Progressing 07/17/24 1439 Yoanna Han-Mahoney, SPRING FORGER/L Progressing Problem: Toilet Transfers Dates: Start: 07/13/24 Disciplines: OT Goal: Patient will perform toilet transfers Independently Dates: Start: 07/13/24 Expected End: 08/13/24 Description: Goal Description: Disciplines: OT Outcomes Date/Time User Outcome 07/17/24 1439 Yoanna Han-Mahoney, SPRING FORGER/L Progressing Problem: Toileting Dates: Start: 07/13/24 Disciplines: OT Goal: Patient will perform toileting Independently Dates: Start: 07/13/24 Expected End: 08/13/24 Description: Goal Description: Disciplines: OT Outcomes Date/Time User Outcome 07/17/24 1439 Yoanna Han-Mahoney, SPRING FORGER/L Progressing Problem: Transfers Dates: Start: 07/13/24 Disciplines: OT Goal: Patient will perform transfers Independently Dates: Start: 07/13/24 Expected End: 08/13/24 Description: Goal Description: Disciplines: OT Outcomes Date/Time User Outcome 07/19/24 1445 Yoanna Han-Mahoney, KWADWO/L Progressing 07/17/24 1439 Yoanna Han-Mahoney, SPRING FORGER/L Progressing Occupational Therapy Care Plan (Resolved) There are no resolved problems. Principal Problem: Dementia with behavioral disturbance ([facility]) Active Problems: Altered mental status Status post colostomy, follow-up exam ([facility]) Cosigned by RAMONITA Dillon at 07/19/2024 3:13 PM EST Associated attestation - Veronica Gorman OTR/L - 07/19/2024 3:13 PM EST I have [...] therapy per RN Lorna Equipment: gait belt Telemetry/Cv Rn: Yes Oxygen Used: room air Other: fall [...] Goal: Patient will perform stairs/curb with Modified [place] Dates: Start: 07/13/24 Expected End: 07/27/24 Description: [...] status Status post colostomy, follow-up exam ([facility]) Cosigned by Jose Gorman PT at 07/19/2024 [...] at the bedside 7. Instruct patient/ patient field support representative about use of safety devices 8. Include patient/ patient field support representative in decisions related to safety Outcome: Progressing Note: Evaluation of progress towards goal: Patient remains injury free at this time. Problem: Knowledge Deficit Goal: Patient/patient field support representative demonstrates understanding of disease process, treatment [...] Score of =/> 25 or indicated by [facility] Assessment Goal: Patient should be free from fall Description: Interventions: 1. [facility] to environment 2. Hourly rounds addressing the [...] non-skid footwear 11. Teach patient and patient field support representative to maintain environment for safety and [...] (cane, walker) within reach 19. Request patient field support representative bring adaptive equipment/mobility aids from home or obtain and provide as needed 20. Consult pharmacy regarding effects of med's affecting mobility, cognition, and alternatives 21. Obtain physician order for PT if risk factors associated with mobility are present 22. Obtain physician order for OT as appropriate 23. Utilize diversional activities 24. Educate patient and patient field support representative how to maintain a safe environment during visitation times (notify nurse prior to leaving bedside) 25. Consider appropriateness of medical or non-medical officer psychiatry 26. Set up voiding schedule as appropriate (every 2 hours) Outcome: Progressing Note: Evaluation of progress towards goal: Patient remains free from falls. DISCHARGE PLANNING NOTE Updates to [facility] (P# ; F# ) Images from the original note were not included. DISCHARGE PLANNING NOTE Discussed patient today during rounds. Plan-TBI center VS IPR. This justowriter operator and floor Mgr spoke with patient's over the phone and his sister in his room re: d/c planning. [facility] Offered to send referral to [facility] to see if they can accept as well as sending blanketed SNF referrals. They are in agreement with sending to [facility] at this time and will let us know today if they would like SNF referrals sent or if the back up plan would be home. Tasked [facility] to send referral to [facility]. Leadership team aware. Services Requested: Services Requested Patient expects to be discharged to:: TBI center VS IPR Discharge Disposition: Acute rehab Patient Goals: Goals: Goals <enter goal here> (pt-stated) Evaluation of progress towards goal: TBI center vs IPR - NANCY PARRISH 07/19/24 10:42 AM This justowriter operator and floors buffer and Dr. Shipley spoke with patient, and sister re: d/c planning. They are aware that [facility] is still reviewing referral. Asked if SNF referrals can be sent and they declined stating they would like the physician to see if she can get him transferred to [facility] as a physician to physician transfer. Updated Leadership. If neither of these hospitals can accept then patient to d/c home with since SNF has been declined. - NANCY PARRISH 07/19/24 12:14 PM Jacoby justowriter operator and floor mgr spoke with family to let them know [facility] has denied patient and that they recommend SNF for him. Tasked CN to send neuro note from today to [facility] to see if they can accept him [...] at the bedside 7. Instruct patient/ patient field support representative about use of safety devices 8. Include patient/ patient field support representative in decisions related to safety Outcome: Progressing Note: Evaluation of progress towards goal: Problem: Knowledge Deficit Goal: Patient/patient field support representative demonstrates understanding of disease process, treatment [...] at the bedside 7. Instruct patient/ patient field support representative about use of safety devices 8. Include patient/ patient field support representative in decisions related to safety Outcome: Progressing Note: Evaluation of progress towards goal: Problem: Knowledge Deficit Goal: Patient/patient field support representative demonstrates understanding of disease process, treatment [...] at the bedside 7. Instruct patient/ patient field support representative about use of safety devices 8. Include patient/ patient field support representative in decisions related to safety Outcome: Progressing Note: Evaluation of progress towards goal: patient is injury free at this time. Problem: Knowledge Deficit Goal: Patient/patient field support representative demonstrates understanding of disease process, treatment [...] Score of =/> 25 or indicated by [facility] Assessment Goal: Patient should be free from fall Description: Interventions: 1. [facility] to environment 2. Hourly rounds addressing the [...] non-skid footwear 11. Teach patient and patient field support representative to maintain environment for safety and [...] (cane, walker) within reach 19. Request patient field support representative bring adaptive equipment/mobility aids from home or obtain and provide as needed 20. Consult pharmacy regarding effects of med's affecting mobility, cognition, and alternatives 21. Obtain physician order for PT if risk factors associated with mobility are present 22. Obtain physician order for OT as appropriate 23. Utilize diversional activities 24. Educate patient and patient field support representative how to maintain a safe environment during visitation times (notify nurse prior to leaving bedside) 25. Consider appropriateness of medical or non-medical officer psychiatry 26. Set up voiding schedule as appropriate (every 2 hours) Outcome: Progressing Note: Evaluation of progress towards goal: Patient is free from falls at this time. DISCHARGE PLANNING NOTE Referral sent to [facility] (P# [phone] ; F# [phone]) Images from the original note were not included. DISCHARGE PLANNING NOTE Discussed patient today during rounds. Patient's requested updates be sent to [facility]. Tasked [facility] to send. Leadership team aware as well as floor nurse. Barriers- acceptance, auth. Services Requested: Services Requested Patient expects to be discharged to:: home vs snf Patient Goals: Goals: Goals <enter goal here> (pt-stated) Evaluation of progress towards goal: TBD-pending PT/OT eval - NANCY PARRISH 07/18/24 10:30 AM Still awaiting response from [facility] if they can accept patient. Leadership [...] at the bedside 7. Instruct patient/ patient field support representative about use of safety devices 8. Include patient/ patient field support representative in decisions related to safety Outcome: [...] be free from fall Description: Interventions: 1. [facility] to environment 2. Hourly rounds addressing the [...] non-skid footwear 11. Teach patient and patient field support representative to maintain environment for safety and [...] (cane, walker) within reach 19. Request patient field support representative bring adaptive equipment/mobility aids from home or obtain and provide as needed 20. Consult pharmacy regarding effects of med's affecting mobility, cognition, and alternatives 21. Obtain physician order for PT if risk factors associated with mobility are present 22. Obtain physician order for OT as appropriate 23. Utilize diversional activities 24. Educate patient and patient field support representative how to maintain a safe environment during visitation times (notify nurse prior to leaving bedside) 25. Consider appropriateness of medical or non-medical officer psychiatry 26. Set up voiding schedule as appropriate (every 2 hours) Outcome: Progressing Note: Evaluation of progress towards goal: Patient will remain free from falls. DISCHARGE PLANNING NOTE Referral sent to. [facility] (P# [phone] ; F# [phone], ) Physical Therapy Treatment Discharge Recommendations PT [...] Rothman Equipment: gait belt and chair alarm Telemetry/Cv Rn: Yes Oxygen Used: room air Other: fall [...] Disciplines: PT Outcomes Date/Time User Outcome 07/17/24 144 Vinod Vaca PTA Progressing Goal Note filed on 07/17/24 1443 by Vinod Vaca PTA Evaluation of progress towards goal: Problem: Gait Dates: Start: 07/13/24 Disciplines: PT Goal: Patient will perform gait Independently Dates: Start: 07/13/24 Expected End: 07/27/24 Description: Without AD >500ft for community mobility Disciplines: PT Outcomes Date/Time User Outcome 07/17/24 1443 Vinod Vaca PTA Progressing Goal Note filed on 07/17/24 144 by Vinod Vaca PTA Evaluation of progress towards goal: Problem: Stairs/Curb Dates: Start: 07/13/24 Disciplines: PT Goal: Patient will perform stairs/curb with Modified [place] Dates: Start: 07/13/24 Expected End: 07/27/24 Description: [...] PTA Progressing Goal Note filed on 07/17/24 144 by Vinod Vaca PTA Evaluation of progress towards goal: Physical Therapy Care Plan (Resolved) There are no resolved problems. Principal Problem: Dementia with behavioral disturbance ([facility]) Active Problems: Altered mental status Status post colostomy, follow-up exam ([facility]) Cosigned by Janice Nuno, PT at 07/18/2024 7:18 AM EST Associated attestation - Janice Nuno, PT - 07/18/2024 7:18 AM EST I [...] Rothman Equipment: gait belt and chair alarm Telemetry/Cv Rn: Yes Oxygen Used: room air Other: fall [...] Date/Time User Outcome 07/17/24 1439 Yoanna Ellsworth, SPRING FORGER/L Progressing Problem: Dressing LB Dates: Start: 07/13/24 [...] Outcomes Date/Time User Outcome 07/17/24 Guero Yoanna Ellsworth, KWADWO/L Progressing Problem: Grooming Dates: Start: 07/13/24 Disciplines: OT Goal: Patient will perform grooming Independently Dates: Start: 07/13/24 Expected End: 08/13/24 Description: Goal Description: Disciplines: OT Outcomes Date/Time User Outcome 07/17/24 1439 Yoanna Ellsworth, KWADWO/L Progressing Problem: Standing Balance Dates: Start: 07/13/24 Disciplines: OT Goal: Improve balance to normal Dates: Start: 07/13/24 Expected End: 08/13/24 Description: Normal dynamic balance. Disciplines: OT Outcomes Date/Time User Outcome 07/17/24 Guero Yoanna Ellsworth, KWADWO/L Progressing Problem: Toilet Transfers Dates: Start: 07/13/24 Disciplines: OT Goal: Patient will perform toilet transfers Independently Dates: Start: 07/13/24 Expected End: 08/13/24 Description: Goal Description: Disciplines: OT Outcomes Date/Time User Outcome 07/17/24 1439 Yoanna VillarealshaneMahoneyKWADWO/Jerome Progressing Problem: Toileting Dates: Start: 07/13/24 Disciplines: OT Goal: Patient will perform toileting Independently Dates: Start: 07/13/24 Expected End: 08/13/24 Description: Goal Description: Disciplines: OT Outcomes Date/Time User Outcome 07/17/24 1439 Yoanna VillarealshaneMahoneyKWADWO/L Progressing Problem: Transfers Dates: Start: 07/13/24 Disciplines: OT Goal: Patient will perform transfers Independently Dates: Start: 07/13/24 Expected End: 08/13/24 Description: Goal Description: Disciplines: OT Outcomes Date/Time User Outcome 07/17/24 1439 Yoanna HanShelleyMahoney SPRING FORGER/L Progressing Occupational Therapy Care Plan (Resolved) There are no resolved problems. Principal Problem: Dementia with behavioral disturbance ([facility]) Active Problems: Altered mental status Status post colostomy, follow-up exam ([facility]) Cosigned by RAMONITA Navarro at 07/17/2024 3:03 [...] at the bedside 7. Instruct patient/ patient field support representative about use of safety devices 8. Include patient/ patient field support representative in decisions related to safety Outcome: Progressing Note: Evaluation of progress towards goal: Patient is injury free at this time. Problem: Knowledge Deficit Goal: Patient/patient field support representative demonstrates understanding of disease process, treatment [...] Score of =/> 25 or indicated by [facility] Assessment Goal: Patient should be free from fall Description: Interventions: 1. [facility] to environment 2. Hourly rounds addressing the [...] non-skid footwear 11. Teach patient and patient field support representative to maintain environment for safety and [...] (cane, walker) within reach 19. Request patient field support representative bring adaptive equipment/mobility aids from home or obtain and provide as needed 20. Consult pharmacy regarding effects of med's affecting mobility, cognition, and alternatives 21. Obtain physician order for PT if risk factors associated with mobility are present 22. Obtain physician order for OT as appropriate 23. Utilize diversional activities 24. Educate patient and patient field support representative how to maintain a safe environment during visitation times (notify nurse prior to leaving bedside) 25. Consider appropriateness of medical or non-medical officer psychiatry 26. Set up voiding schedule as appropriate (every 2 hours) Outcome: Progressing Note: Evaluation of progress towards goal: Patient is free from falls at this time. DISCHARGE PLANNING NOTE fax referral to [facility] to [phone] shannan Shah Images from the original note were not included. DISCHARGE PLANNING NOTE Discussed patient today during rounds. Plan- IPR/TBI center. Barriers- acceptance, auth. This justowriter operator called both reviewing facilities and left for admissions to see if they can accept. Asked them to call this justowriter operator back. Floor nurse and leadership team aware. Services Requested: Services Requested Patient expects to be discharged to:: home vs snf Patient Goals: Goals: Goals <enter goal here> (pt-stated) Evaluation of progress towards goal: TBD-pending PT/OT eval - NANCY PARRISH 07/17/24 9:42 AM At this time we do not have an accepting TBI/IPR facility. This justowriter operator and floors buffer attempted to speak with patient's but she is not in the room. Also tried to call her but it went right to and her box is full. - NANCY PARRISH 07/17/24 1:43 PM [facility] called this justowriter operator since they don't respond in careport and they can not accept patient. This justowriter operator and floors buffer spoke with patient's and patient's sister that [...] at the bedside 7. Instruct patient/ patient field support representative about use of safety devices 8. Include patient/ patient field support representative in decisions related to safety Outcome: Progressing Note: Evaluation of progress towards goal: Patient remains injury and fall free. Safety precautions in place: call light within reach, bed in lowest position, personal belongings within reach, oriented to environment, and non-slip footwear on. Problem: Knowledge Deficit Goal: Patient/patient field support representative demonstrates understanding of disease process, treatment [...] towards goal: Patient to discharge to TBI [facility], awaiting an accepting facility. Problem: Neurological [...] Score of =/> 25 or indicated by [facility] Assessment Goal: Patient should be free from fall Description: Interventions: 1. [facility] to environment 2. Hourly rounds addressing the [...] non-skid footwear 11. Teach patient and patient field support representative to maintain environment for safety and [...] (cane, walker) within reach 19. Request patient field support representative bring adaptive equipment/mobility aids from home or obtain and provide as needed 20. Consult pharmacy regarding effects of med's affecting mobility, cognition, and alternatives 21. Obtain physician order for PT if risk factors associated with mobility are present 22. Obtain physician order for OT as appropriate 23. Utilize diversional activities 24. Educate patient and patient field support representative how to maintain a safe environment [...] Problem: Auditory Comprehension Dates: Start: 07/12/24 Disciplines: LICENSING SERVICES CLERK Goal: LTG: Patient will comprehend communication related to basic medical and social needs and utilize compensatory strategies to maintain safety in a functional living environment Dates: Start: 07/12/24 Expected End: 08/12/24 Disciplines: LICENSING SERVICES CLERK Goal: STG: Patient will answer complex yes/no questions with 90% accuracy with minimal cueing Dates: Start: 07/12/24 Expected End: 08/12/24 Disciplines: LICENSING SERVICES CLERK Outcomes Date/Time User Outcome 07/16/24 152Lauro Conchita Devi [facility] Progressing Goal: STG: Patient will complete 1-3 step commands with 90% accuracy with minimal cueing Dates: Start: 07/12/24 Expected End: 08/12/24 Disciplines: LICENSING SERVICES CLERK Outcomes Date/Time User Outcome 07/16/24 152Lauro Conchita Devi [facility] Progressing Goal: STG: Patient will complete simple, phrase level auditory comprehension tasks with 90% accuracy with minimal cueing Dates: Start: 07/12/24 Expected End: 08/12/24 Disciplines: LICENSING SERVICES CLERK Problem: Cognitive Linguistic Dates: Start: 07/12/24 Disciplines: LICENSING SERVICES CLERK Goal: LTG: Patient will display functional cognitive-linguistic skills to demonstrate appropriate communication and safety within daily activities in a functional living environment Dates: Start: 07/12/24 Expected End: 08/12/24 Disciplines: LICENSING SERVICES CLERK Goal: STG: Patient will demonstrate sustained attention by maintaining focus during a task for 10 minutes with minimal assistance Dates: Start: 07/12/24 Expected End: 08/12/24 Disciplines: LICENSING SERVICES CLERK Outcomes Date/Time User Outcome 07/16/24 152Lauro Conchita Devi [facility] Progressing Goal: STG: Patient will be appropriately oriented to person, place, time and situation with 90% accuracy with minimal cueing Dates: Start: 07/12/24 Expected End: 08/12/24 Disciplines: LICENSING SERVICES CLERK Goal: STG: Patient will recall information discussed during therapy session via retelling/answering questions with 90% accuracy with minimal cueing Dates: Start: 07/12/24 Expected End: 08/12/24 Disciplines: LICENSING SERVICES CLERK Problem: High Level Language Dates: Start: 07/12/24 Disciplines: LICENSING SERVICES CLERK Goal: LTG: Patient will demonstrate use of self-awareness, goal setting, planning, initiation, self-monitoring and problem solving during daily activities to improve safety and awareness in a functional living environment Dates: Start: 07/12/24 Expected End: 08/12/24 Disciplines: LICENSING SERVICES CLERK Goal: STG: Patient will sequence 4-6 steps to a task (verbal, written, pictures) with 90% accuracy with minimal cueing Dates: Start: 07/12/24 Expected End: 08/12/24 Disciplines: LICENSING SERVICES CLERK Goal: STG: Patient will provide 3 appropriate solutions to problems of daily living with 90% accuracy with minimal cueing Dates: Start: 07/12/24 Expected End: 08/12/24 Disciplines: LICENSING SERVICES CLERK Goal: STG: Patient will demonstrate functional problem solving and safety awareness with 90% accuracy in daily living tasks in order to increase safe interactions with environment and decrease assistance from caregivers Dates: Start: 07/12/24 Expected End: 08/12/24 Disciplines: LICENSING SERVICES CLERK Problem: Verbal Expression Dates: Start: 07/12/24 Disciplines: LICENSING SERVICES CLERK Goal: LTG: Patient will utilize compensatory strategies to communicate wants and needs effectively to different conversational partners, maintain safety and participate socially in a functional living environment Dates: Start: 07/12/24 Expected End: 08/12/24 Disciplines: LICENSING SERVICES CLERK Goal: STG: Patient will respond to simple/complex open ended questions during activities of daily living with 90% accuracy with minimal cueing Dates: Start: 07/12/24 Expected End: 08/12/24 Disciplines: LICENSING SERVICES CLERK Goal: STG: Patient will maintain topic of conversation to decrease tangential speech with 90% accuracy with minimal cueing Dates: Start: 07/12/24 Expected End: 08/12/24 Disciplines: LICENSING SERVICES CLERK Outcomes Date/Time User Outcome 07/16/24 1520 MAGALI Castellanos Progressing Speech Therapy Care Plan (Resolved) There are no resolved problems. Principal Problem: Dementia with behavioral disturbance ([facility]) Active Problems: Altered mental status Status post colostomy, follow-up exam ([facility]) DISCHARGE PLANNING NOTE Resent referral in [facility] to [facility] P#[phone]; F#[phone] sent via secure fax to [phone] Problem: Safety Goal: Patient will be injury free during hospitalization Description: INTERVENTIONS: 1. Assess patient's risk for falls and implement fall prevention plan of care per policy 2. Provide and maintain a safe environment 3. Proper use of double Identifiers 4. Medication administration using the 5 rights 5. Hand hygiene 6. Specimens are labeled at the bedside 7. Instruct patient/ patient field support representative about use of safety devices 8. Include patient/ patient field support representative in decisions related to safety Outcome: Progressing Note: Evaluation of progress towards goal: pain will be adequally controlled to allow for rest and adl's Problem: Knowledge Deficit Goal: Patient/patient field support representative demonstrates understanding of disease process, treatment [...] Score of =/> 25 or indicated by [facility] Assessment Goal: Patient should be free from fall Description: Interventions: 1. [facility] to environment 2. Hourly rounds addressing the [...] non-skid footwear 11. Teach patient and patient field support representative to maintain environment for safety and [...] (cane, walker) within reach 19. Request patient field support representative bring adaptive equipment/mobility aids from home or obtain and provide as needed 20. Consult pharmacy regarding effects of med's affecting mobility, cognition, and alternatives 21. Obtain physician order for PT if risk factors associated with mobility are present 22. Obtain physician order for OT as appropriate 23. Utilize diversional activities 24. Educate patient and patient field support representative how to maintain a safe environment during visitation times (notify nurse prior to leaving bedside) 25. Consider appropriateness of medical or non-medical officer psychiatry 26. Set up voiding schedule as appropriate (every 2 hours) Outcome: Progressing Note: Evaluation of progress towards goal: fall bundle DISCHARGE PLANNING NOTE Clinical updates sent to Referrals sent to [facility] (P# [phone] ; F# [phone]) and to [facility] and to [facility] DISCHARGE PLANNING NOTE Referral sent to. [facility] Via secure fax to [phone]. This is theor fax per phone call to facility. P#[phone]. Provider not in Careport. DISCHARGE PLANNING NOTE Discharge plan- TBD waiting to hear from TBI/IPR who can accept out of the reviewing facilities. [facility] called this justowriter operator and will call his to discuss. If [...] PARRISH 07/16/24 10:58 AM Called admissions at [facility] and [facility] and left VM asking them if they can accept and to call this justowriter operator back. Left callback #. - NANCY PARRISH 07/16/24 11:05 AM Still awaiting responses from all reviewing IPR this time. Leadership aware. Called [facility] and spoke with admissions and they will review. Also called [facility] and left another VM. Both in [place] are still reviewing at this time. - [...] at the bedside 7. Instruct patient/ patient field support representative about use of safety devices 8. Include patient/ patient field support representative in decisions related to safety Outcome: Progressing Note: Evaluation of progress towards goal: Patient remains injury and fall free. Safety precautions in place: call light within reach, bed in lowest position, personal belongings within reach, oriented to environment, and non-slip footwear on. Problem: Knowledge Deficit Goal: Patient/patient field support representative demonstrates understanding of disease process, treatment [...] Collaborate with ancillary departments 14. Include patient/patient field support representative in decisions related to anxiety Outcome: Progressing Note: Evaluation of progress towards goal: Patient's anxiety appears to be at manageable level. Problem: Moderate - High Risk Fall Score Description: [place] Fall Score of =/> 25 or indicated by [facility] Assessment Goal: Patient should be free from fall Description: Interventions: 1. [facility] to environment 2. Hourly rounds addressing the [...] non-skid footwear 11. Teach patient and patient field support representative to maintain environment for safety and [...] (cane, walker) within reach 19. Request patient field support representative bring adaptive equipment/mobility aids from home or obtain and provide as needed 20. Consult pharmacy regarding effects of med's affecting mobility, cognition, and alternatives 21. Obtain physician order for PT if risk factors associated with mobility are present 22. Obtain physician order for OT as appropriate 23. Utilize diversional activities 24. Educate patient and patient field support representative how to maintain a safe environment [...] at the bedside 7. Instruct patient/ patient field support representative about use of safety devices 8. Include patient/ patient field support representative in decisions related to safety Outcome: [...] be free from fall Description: Interventions: 1. [facility] to environment 2. Hourly rounds addressing the [...] non-skid footwear 11. Teach patient and patient field support representative to maintain environment for safety and [...] (cane, walker) within reach 19. Request patient field support representative bring adaptive equipment/mobility aids from home or obtain and provide as needed 20. Consult pharmacy regarding effects of med's affecting mobility, cognition, and alternatives 21. Obtain physician order for PT if risk factors associated with mobility are present 22. Obtain physician order for OT as appropriate 23. Utilize diversional activities 24. Educate patient and patient field support representative how to maintain a safe environment [...] at the bedside 7. Instruct patient/ patient field support representative about use of safety devices 8. Include patient/ patient field support representative in decisions related to safety Outcome: Progressing Note: Evaluation of progress towards goal: Proper identifiers used with patient care and medication administration. Remains free of injury during shift Problem: Knowledge Deficit Goal: Patient/patient field support representative demonstrates understanding of disease process, treatment [...] Collaborate with ancillary departments 14. Include patient/patient field support representative in decisions related to anxiety Outcome: Progressing Note: Evaluation of progress towards goal: Patient verbalizes a tolerable anxiety level and remains free of signs and symptoms of anxiety. Will continue to explain treatment plan and monitor for changes in anxiety levels. Problem: Moderate - High Risk Fall Score Description: [place] Fall Score of =/> 25 or indicated by [facility] Assessment Goal: Patient should be free from fall Description: Interventions: 1. [facility] to environment 2. Hourly rounds addressing the [...] non-skid footwear 11. Teach patient and patient field support representative to maintain environment for safety and [...] (cane, walker) within reach 19. Request patient field support representative bring adaptive equipment/mobility aids from home or obtain and provide as needed 20. Consult pharmacy regarding effects of med's affecting mobility, cognition, and alternatives 21. Obtain physician order for PT if risk factors associated with mobility are present 22. Obtain physician order for OT as appropriate 23. Utilize diversional activities 24. Educate patient and patient field support representative how to maintain a safe environment [...] at the bedside 7. Instruct patient/ patient field support representative about use of safety devices 8. Include patient/ patient field support representative in decisions related to safety Outcome: Progressing Note: Evaluation of progress towards goal: pain will be controlled to allow for rest and adl's Problem: Knowledge Deficit Goal: Patient/patient field support representative demonstrates understanding of disease process, treatment [...] Collaborate with ancillary departments 14. Include patient/patient field support representative in decisions related to anxiety Outcome: Progressing Note: Evaluation of progress towards goal: listen and reassuring Problem: Moderate - High Risk Fall Score Description: [place] Fall Score of =/> 25 or indicated by [facility] Assessment Goal: Patient should be free from fall Description: Interventions: 1. [facility] to environment 2. Hourly rounds addressing the [...] non-skid footwear 11. Teach patient and patient field support representative to maintain environment for safety and [...] (cane, walker) within reach 19. Request patient field support representative bring adaptive equipment/mobility aids from home or obtain and provide as needed 20. Consult pharmacy regarding effects of med's affecting mobility, cognition, and alternatives 21. Obtain physician order for PT if risk factors associated with mobility are present 22. Obtain physician order for OT as appropriate 23. Utilize diversional activities 24. Educate patient and patient field support representative how to maintain a safe environment during visitation times (notify nurse prior to leaving bedside) 25. Consider appropriateness of medical or non-medical officer psychiatry 26. Set up voiding schedule as appropriate (every 2 hours) Outcome: Progressing Note: Evaluation of progress towards goal: fallbundle DISCHARGE PLANNING NOTE Referrals sent to [facility] (P# [phone] ; F# [phone]) and to [facility] and to [facility] and to [facility] in [facility] p#: [phone] f#: [phone] DISCHARGE PLANNING NOTE Follow-up Discharge Planning Progress Note Per RN during discharge transition rounds, barriers to discharge are: Accepting acute inpatient rehabilitation center. Discharge Plan: Junior Manufacturing Engineer followed up with patient, spouse and patient sister at bedside. Updated, Rehabilitation [facility], not accepting, not in [...] Discussed lower levels of care such as Alf Facility and Home care. Patient spouse and sister verbalized understanding. Choices received. [facility] tasked to send referrals. [...] at the bedside 7. Instruct patient/ patient field support representative about use of safety devices 8. Include patient/ patient field support representative in decisions related to safety Outcome: Progressing Note: Evaluation of progress towards goal: Proper identifiers used with patient care and medication administration. Remains free of injury during shift Problem: Knowledge Deficit Goal: Patient/patient field support representative demonstrates understanding of disease process, treatment [...] Collaborate with ancillary departments 14. Include patient/patient field support representative in decisions related to anxiety Outcome: Progressing Note: Evaluation of progress towards goal: Patient remains free of signs and symptoms of anxiety. Will continue to explain treatment plan and monitor for changes in anxiety levels. Problem: Moderate - High Risk Fall Score Description: [place] Fall Score of =/> 25 or indicated by [facility] Assessment Goal: Patient should be free from fall Description: Interventions: 1. [facility] to environment 2. Hourly rounds addressing the [...] non-skid footwear 11. Teach patient and patient field support representative to maintain environment for safety and [...] (cane, walker) within reach 19. Request patient field support representative bring adaptive equipment/mobility aids from home or obtain and provide as needed 20. Consult pharmacy regarding effects of med's affecting mobility, cognition, and alternatives 21. Obtain physician order for PT if risk factors associated with mobility are present 22. Obtain physician order for OT as appropriate 23. Utilize diversional activities 24. Educate patient and patient field support representative how to maintain a safe environment [...] injury from restraints (Restraint for Interference with Maintenance Porter) Description: INTERVENTIONS: 1. Determine that other, less [...] Free from restraint(s) (Restraint for Interference with Maintenance Porter) Description: INTERVENTIONS: 1. ONCE/SHIFT or MINIMUM Q12H: [...] patient's and sister were very upset that [facility] did not accept patient. They declined to offer any other choices for facilities to her at this time. Lesia encouraged them to allow her to make referrals to some TBI facilities at [facility] and in [place] but at this time they are angry that [facility]. Junior Manufacturing Engineer will request SW follow up with them in the morning to obtain choices to continue developing a transition of care plan. DISCHARGE PLANNING NOTE Referral sent to [facility] P#[phone]; F#[phone]); [facility], a division of [facility] P# [phone] [calling report];/[facility] (P# [calling report]; F# ) DISCHARGE PLANNING NOTE Per RN during discharge transition rounds, barriers to discharge are: Telesitter, PMR re-eval, Seroquel dose adjustment. Discharge Plan: IPR for TBI rehab. PT/OT recommended IPR. CN met with and sister Earlene. wants a referral sent to [facility]. CN discussed discharge and making referrals to other TBI/ IPR rehabs in the state, and sister stated they are putting all their zak in [facility] being able to accept the patient. Drying Rack Changer will continue to follow for any discharge needs. - Lesia Caba RN 07/13/24 12:18 PM Addendum: [facility] is not in network with patients [employer] insurance. gave CN two more choices : [facility] IPR and [facility] rehab. [facility] tasked to send referrals. and sister are calling insurance to ask about a one time contract to [facility]. Ethel , [facility] rep, stopped in to talk to and sister. - Lesia Caba RN 07/13/24 2:10 PM Addendum: Patient's and sister asked CN to listen and talk to insurance attorney regarding a one time approval for the IPR: [facility]. Credit Card Specialist Xi[place] with [employer] stated attending or managing physician needs to document patient's health status and progression, information on why the patient needs to go this specific facility for rehab, include diagnosis codes and services codes. Fax: Prior Auth Request to [phone] attn: Prior Auth Request at [employer]. CN sent pic chat to Dr. Nichol [...] PM DISCHARGE PLANNING NOTE Referral to [facility] (P# ; F# ) Occupational Therapy Evaluation [...] 11/24/2019 Performed by Skyler Bowen MD at [facility] COLONOSCOPY JANICE 3YEARS AGO COLOSTOMY CLOSURE Therapy Plan Need [...] early mobility guidelines. Equipment: gait belt, telemetry Telemetry/Cv Rn: Yes Oxygen Used: room air Other: fall [...] and pants. Patient was able to static smoking tobacco packing machine hand front of toilet with contact guard. Patient was unable to void due to trouble with processing, safety and judgement. Home Management - IADL Other: patient has trouble executing tasks. patient was able to ambulate into bathroom with contact guard. patient required min assist to doff underware and pants. Patient was able to static smoking tobacco packing machine hand front of toilet with contact guard. Patient [...] Principal Problem: Dementia with behavioral disturbance ([facility]) Active Problems: Altered mental status Status post colostomy, follow-up exam ([facility]) Physical Therapy Evaluation Discharge Recommendations PT Recommendations: [...] 6 Clicks: Basic Mobility Raw Score: 20 [facility] G Code Modifier: CJ Therapy Plan Need for skilled Physical Therapy to address deficits in functional mobility due to a status decline resulting from admission 07/06 as a transfer from [facility] for neurological work up. Patient diagnosed with early onset dementia 2022, per spouse report after skilled nursing and med changes cognitive status had improved and stabilized prior to fall in May 2024. 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 Pt discharged to inpatient treatment facility and returned to [facility] for scheduled MRI. 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 Principal Problem: Dementia with behavioral disturbance ([facility]) Active Problems: Altered mental status Status post colostomy, follow-up exam ([facility]) Problem: Safety Goal: Patient will be injury free during hospitalization Description: INTERVENTIONS: 1. Assess patient's risk for falls and implement fall prevention plan of care per policy 2. Provide and maintain a safe environment 3. Proper use of double Identifiers 4. Medication administration using the 5 rights 5. Hand hygiene 6. Specimens are labeled at the bedside 7. Instruct patient/ patient field support representative about use of safety devices 8. Include patient/ patient field support representative in decisions related to safety Outcome: Progressing Note: Evaluation of progress towards goal: Patient remains injury and fall free. Safety precautions in place: call light within reach, bed in lowest position, personal belongings within reach, oriented to environment, and non-slip footwear on. Problem: Knowledge Deficit Goal: Patient/patient field support representative demonstrates understanding of disease process, treatment [...] Collaborate with ancillary departments 14. Include patient/patient field support representative in decisions related to anxiety Outcome: Progressing Note: Evaluation of progress towards goal: Patient's has at bedside to help with spells of anxiety. Problem: Moderate - High Risk Fall Score Description: Gallegos Fall Score of =/> 25 or indicated by [facility] Assessment Goal: Patient should be free from fall Description: Interventions: 1. [facility] to environment 2. Hourly rounds addressing the [...] non-skid footwear 11. Teach patient and patient field support representative to maintain environment for safety and [...] (cane, walker) within reach 19. Request patient field support representative bring adaptive equipment/mobility aids from home or obtain and provide as needed 20. Consult pharmacy regarding effects of med's affecting mobility, cognition, and alternatives 21. Obtain physician order for PT if risk factors associated with mobility are present 22. Obtain physician order for OT as appropriate 23. Utilize diversional activities 24. Educate patient and patient field support representative how to maintain a safe environment [...] injury from restraints (Restraint for Interference with Maintenance Porter) Description: INTERVENTIONS: 1. Determine that other, less [...] Free from restraint(s) (Restraint for Interference with Maintenance Porter) Description: INTERVENTIONS: 1. ONCE/SHIFT or MINIMUM Q12H: [...] CN escalated this case to CN leadership. Drying Rack Changer will continue to follow for any discharge [...] at the bedside 7. Instruct patient/ patient field support representative about use of safety devices 8. Include patient/ patient field support representative in decisions related to safety Outcome: Progressing Note: Evaluation of progress towards goal: Patient remains injury free at present time. Safe environment provided and maintained. Medications administered using 5 rights. Problem: Knowledge Deficit Goal: Patient/patient field support representative demonstrates understanding of disease process, treatment [...] Collaborate with ancillary departments 14. Include patient/patient field support representative in decisions related to anxiety Outcome: Progressing Note: Evaluation of progress towards goal: Patient has family at bedside assisting with anxiety. Problem: Safety - Medical Restraint Goal: Remains free of injury from restraints (Restraint for Interference with Maintenance Porter) Description: INTERVENTIONS: 1. Determine that other, less [...] Free from restraint(s) (Restraint for Interference with Maintenance Porter) Description: INTERVENTIONS: 1. ONCE/SHIFT or MINIMUM Q12H: [...] continue to follow along. Prognosis Services: Skilled LICENSING SERVICES CLERK services to address the above deficits Prognosis/Potential: [...] Moderate Sustained Attention: Moderate Memory: Exceptions to WF Daily Routines: Moderate Immediate Memory: Severe Short-term [...] Problem: Auditory Comprehension Dates: Start: 07/12/24 Disciplines: LICENSING SERVICES CLERK Goal: LTG: Patient will comprehend communication related to basic medical and social needs and utilize compensatory strategies to maintain safety in a functional living environment Dates: Start: 07/12/24 Expected End: 08/12/24 Disciplines: LICENSING SERVICES CLERK Goal: STG: Patient will answer complex yes/no questions with 90% accuracy with minimal cueing Dates: Start: 07/12/24 Expected End: 08/12/24 Disciplines: LICENSING SERVICES CLERK Goal: STG: Patient will complete 1-3 step commands with 90% accuracy with minimal cueing Dates: Start: 07/12/24 Expected End: 08/12/24 Disciplines: LICENSING SERVICES CLERK Goal: STG: Patient will complete simple, phrase level auditory comprehension tasks with 90% accuracy with minimal cueing Dates: Start: 07/12/24 Expected End: 08/12/24 Disciplines: LICENSING SERVICES CLERK Problem: Cognitive Linguistic Dates: Start: 07/12/24 Disciplines: LICENSING SERVICES CLERK Goal: LTG: Patient will display functional cognitive-linguistic skills to demonstrate appropriate communication and safety within daily activities in a functional living environment Dates: Start: 07/12/24 Expected End: 08/12/24 Disciplines: LICENSING SERVICES CLERK Goal: STG: Patient will demonstrate sustained attention by maintaining focus during a task for 10 minutes with minimal assistance Dates: Start: 07/12/24 Expected End: 08/12/24 Disciplines: LICENSING SERVICES CLERK Goal: STG: Patient will be appropriately oriented to person, place, time and situation with 90% accuracy with minimal cueing Dates: Start: 07/12/24 Expected End: 08/12/24 Disciplines: LICENSING SERVICES CLERK Goal: STG: Patient will recall information discussed during therapy session via retelling/answering questions with 90% accuracy with minimal cueing Dates: Start: 07/12/24 Expected End: 08/12/24 Disciplines: LICENSING SERVICES CLERK Problem: High Level Language Dates: Start: 07/12/24 Disciplines: LICENSING SERVICES CLERK Goal: LTG: Patient will demonstrate use of self-awareness, goal setting, planning, initiation, self-monitoring and problem solving during daily activities to improve safety and awareness in a functional living environment Dates: Start: 07/12/24 Expected End: 08/12/24 Disciplines: LICENSING SERVICES CLERK Goal: STG: Patient will sequence 4-6 steps to a task (verbal, written, pictures) with 90% accuracy with minimal cueing Dates: Start: 07/12/24 Expected End: 08/12/24 Disciplines: LICENSING SERVICES CLERK Goal: STG: Patient will provide 3 appropriate solutions to problems of daily living with 90% accuracy with minimal cueing Dates: Start: 07/12/24 Expected End: 08/12/24 Disciplines: LICENSING SERVICES CLERK Goal: STG: Patient will demonstrate functional problem solving and safety awareness with 90% accuracy in daily living tasks in order to increase safe interactions with environment and decrease assistance from caregivers Dates: Start: 07/12/24 Expected End: 08/12/24 Disciplines: LICENSING SERVICES CLERK Problem: Verbal Expression Dates: Start: 07/12/24 Disciplines: LICENSING SERVICES CLERK Goal: LTG: Patient will utilize compensatory strategies to communicate wants and needs effectively to different conversational partners, maintain safety and participate socially in a functional living environment Dates: Start: 07/12/24 Expected End: 08/12/24 Disciplines: LICENSING SERVICES CLERK Goal: STG: Patient will respond to simple/complex open ended questions during activities of daily living with 90% accuracy with minimal cueing Dates: Start: 07/12/24 Expected End: 08/12/24 Disciplines: LICENSING SERVICES CLERK Goal: STG: Patient will maintain topic of conversation to decrease tangential speech with 90% accuracy with minimal cueing Dates: Start: 07/12/24 Expected End: 08/12/24 Disciplines: LICENSING SERVICES CLERK Speech Therapy Care Plan (Resolved) There are no resolved problems. Principal Problem: Dementia with behavioral disturbance ([facility]) Active Problems: Altered mental status Status post colostomy, follow-up exam ([facility]) Problem: Safety - Medical Restraint Goal: Remains free of injury from restraints (Restraint for Interference with Maintenance Porter) Description: INTERVENTIONS: 1. Determine that other, less [...] Free from restraint(s) (Restraint for Interference with Maintenance Porter) Description: INTERVENTIONS: 1. ONCE/SHIFT or MINIMUM Q12H: [...] elimination needs BEHAVIORAL RESTRAINTS PROVIDER ONE HOUR [id number] EVALUATION NOTE Estella Jeffery was evaluated on [...] at the bedside 7. Instruct patient/ patient field support representative about use of safety devices 8. Include patient/ patient field support representative in decisions related to safety Outcome: Progressing Note: Evaluation of progress towards goal: Patient remains injury and fall free. Safety precautions in place: call light within reach, bed in lowest position, personal belongings within reach, oriented to environment, and non-slip footwear on. Problem: Knowledge Deficit Goal: Patient/patient field support representative demonstrates understanding of disease process, treatment [...] Collaborate with ancillary departments 14. Include patient/patient field support representative in decisions related to anxiety Outcome: Progressing Note: Evaluation of progress towards goal: Patient has at bedside aiding in assisting with anxiety. Problem: Moderate - High Risk Fall Score Description: Gallegos Fall Score of =/> 25 or indicated by [facility] Assessment Goal: Patient should be free from fall Description: Interventions: 1. [facility] to environment 2. Hourly rounds addressing the [...] non-skid footwear 11. Teach patient and patient field support representative to maintain environment for safety and [...] (cane, walker) within reach 19. Request patient field support representative bring adaptive equipment/mobility aids from home or obtain and provide as needed 20. Consult pharmacy regarding effects of med's affecting mobility, cognition, and alternatives 21. Obtain physician order for PT if risk factors associated with mobility are present 22. Obtain physician order for OT as appropriate 23. Utilize diversional activities 24. Educate patient and patient field support representative how to maintain a safe environment [...] unpredictable and confused. Discharge Plan: [facility] psych stated [facility] was sent a referral and they have declined. Waiting input from psych. Drying Rack Changer will continue to follow for any discharge needs. - Lesia Caba RN 07/11/24 12:06 PM Late entery: KAY met with patient, Kari, and sister Earlene on Tuesday afternoon. and sister want the patient to go to a Traumatic Brain Injury rehab unit. CN began researching TBI Rehab units in the area, reported back to the and sister after finding TBI rehab units in [facility]. Sister asked for me to look in [facility]. and sister do not want any referrals send until they are able to meet with the neurologist again, sister wants to look into the TBI units in the [facility] herself before any referrals are sent. - Lesia Caba RN 07/12/24 8:11 AM Referral sent to [facility] to assess for admission to that center's inpatient psychiatric unit. After a clinical review and screening was completed [facility] assessed patient as inappropriate for treatment at that facility. Will alert care team. - NANCY Martines 07/11/24 10:33 AM DISCHARGE PLANNING NOTE Updates to [facility] [phone] Problem: Safety Goal: Patient will be injury free during hospitalization Description: INTERVENTIONS: 1. Assess patient's risk for falls and implement fall prevention plan of care per policy 2. Provide and maintain a safe environment 3. Proper use of double Identifiers 4. Medication administration using the 5 rights 5. Hand hygiene 6. Specimens are labeled at the bedside 7. Instruct patient/ patient field support representative about use of safety devices 8. Include patient/ patient field support representative in decisions related to safety Outcome: Progressing Note: Evaluation of progress towards goal: Patient remains injury free at present time. Safe environment provided and maintained. Medications administered using 5 rights. Problem: Knowledge Deficit Goal: Patient/patient field support representative demonstrates understanding of disease process, treatment [...] Collaborate with ancillary departments 14. Include patient/patient field support representative in decisions related to anxiety Outcome: Progressing Note: Evaluation of progress towards goal: Patient has at bedside assisting with anxiety. Problem: Moderate - High Risk Fall Score Description: Gallegos Fall Score of =/> 25 or indicated by [facility] Assessment Goal: Patient should be free from fall Description: Interventions: 1. [facility] to environment 2. Hourly rounds addressing the [...] non-skid footwear 11. Teach patient and patient field support representative to maintain environment for safety and [...] (cane, walker) within reach 19. Request patient field support representative bring adaptive equipment/mobility aids from home or obtain and provide as needed 20. Consult pharmacy regarding effects of med's affecting mobility, cognition, and alternatives 21. Obtain physician order for PT if risk factors associated with mobility are present 22. Obtain physician order for OT as appropriate 23. Utilize diversional activities 24. Educate patient and patient field support representative how to maintain a safe environment [...] injury from restraints (Restraint for Interference with Maintenance Porter) Description: INTERVENTIONS: 1. Determine that other, less [...] Free from restraint(s) (Restraint for Interference with Maintenance Porter) Description: INTERVENTIONS: 1. ONCE/SHIFT or MINIMUM Q12H: [...] elimination needs BEHAVIORAL RESTRAINTS PROVIDER ONE HOUR [id number] EVALUATION NOTE Estella KramerChong Aristeo was evaluated on 07/10/2024 at 2350. Called [...] at the bedside 7. Instruct patient/ patient field support representative about use of safety devices 8. Include patient/ patient field support representative in decisions related to safety Outcome: [...] hygiene technique. 7. Identify and instruct patient/patient field support representative in use of appropriate isolation precautions for identified infection/symptoms. 8. Provide and discuss with patient/patient field support representative on educational MDRO sheet. 9. Encourage and monitor nutritional status daily and consult dairy manager if indicated. 10. Implement neutropenic guidelines as needed. Outcome: Progressing Note: Evaluation of progress towards goal: Patient remains free of any signs of infection. Signs and symptoms being monitor such as fevers, chills, warm/red areas. Problem: Knowledge Deficit Goal: Patient/patient field support representative demonstrates understanding of disease process, treatment [...] Collaborate with ancillary departments 14. Include patient/patient field support representative in decisions related to anxiety Outcome: Progressing Note: Evaluation of progress towards goal: Patient's anxiety is at manageable level. Problem: Safety - Medical Restraint Goal: Remains free of injury from restraints (Restraint for Interference with Maintenance Porter) Description: INTERVENTIONS: 1. Determine that other, less [...] Free from restraint(s) (Restraint for Interference with Maintenance Porter) Description: INTERVENTIONS: 1. ONCE/SHIFT or MINIMUM Q12H: [...] on patient's door 9. Provide patient/ patient field support representative with isolation education. Outcome: Progressing Note: [...] be free from fall Description: Interventions: 1. [facility] to environment 2. Hourly rounds addressing the [...] non-skid footwear 11. Teach patient and patient field support representative to maintain environment for safety and [...] (cane, walker) within reach 19. Request patient field support representative bring adaptive equipment/mobility aids from home or obtain and provide as needed 20. Consult pharmacy regarding effects of med's affecting mobility, cognition, and alternatives 21. Obtain physician order for PT if risk factors associated with mobility are present 22. Obtain physician order for OT as appropriate 23. Utilize diversional activities 24. Educate patient and patient field support representative how to maintain a safe environment [...] at the bedside 7. Instruct patient/ patient field support representative about use of safety devices 8. Include patient/ patient field support representative in decisions related to safety Outcome: [...] hygiene technique. 7. Identify and instruct patient/patient field support representative in use of appropriate isolation precautions for identified infection/symptoms. 8. Provide and discuss with patient/patient field support representative on educational MDRO sheet. 9. Encourage and monitor nutritional status daily and consult dairy manager if indicated. 10. Implement neutropenic guidelines as needed. Outcome: Progressing Note: Evaluation of progress towards goal: patient remains afebrile at this time Problem: Knowledge Deficit Goal: Patient/patient field support representative demonstrates understanding of disease process, treatment [...] Collaborate with ancillary departments 14. Include patient/patient field support representative in decisions related to anxiety Outcome: Progressing Note: Evaluation of progress towards goal: discussed w/ patient coping strategies & dietary changes that may aid in controlling stress & anxiety. Problem: Safety - Medical Restraint Goal: Remains free of injury from restraints (Restraint for Interference with Maintenance Porter) Description: INTERVENTIONS: 1. Determine that other, less [...] Free from restraint(s) (Restraint for Interference with Maintenance Porter) Description: INTERVENTIONS: 1. ONCE/SHIFT or MINIMUM Q12H: [...] on patient's door 9. Provide patient/ patient field support representative with isolation education. Outcome: Progressing Note: Evaluation of progress towards goal: patient remains afebrile at this time Problem: Moderate - High Risk Fall Score Description: Gallegos Fall Score of =/> 25 or indicated by [facility] Assessment Goal: Patient should be free from fall Description: Interventions: 1. [facility] to environment 2. Hourly rounds addressing the [...] non-skid footwear 11. Teach patient and patient field support representative to maintain environment for safety and [...] (cane, walker) within reach 19. Request patient field support representative bring adaptive equipment/mobility aids from home or obtain and provide as needed 20. Consult pharmacy regarding effects of med's affecting mobility, cognition, and alternatives 21. Obtain physician order for PT if risk factors associated with mobility are present 22. Obtain physician order for OT as appropriate 23. Utilize diversional activities 24. Educate patient and patient field support representative how to maintain a safe environment [...] TBD. CN discussed case with colin Solorio SW Drying Rack Changer will continue to follow for any discharge [...] at the bedside 7. Instruct patient/ patient field support representative about use of safety devices 8. Include patient/ patient field support representative in decisions related to safety Outcome: [...] hygiene technique. 7. Identify and instruct patient/patient field support representative in use of appropriate isolation precautions for identified infection/symptoms. 8. Provide and discuss with patient/patient field support representative on educational MDRO sheet. 9. Encourage and monitor nutritional status daily and consult dairy manager if indicated. 10. Implement neutropenic guidelines as needed. Outcome: Progressing Note: Evaluation of progress towards goal: Skin integrity remains in stable condition; remains w/o ss of infection, fever, pain, or increased discomfort. Problem: Knowledge Deficit Goal: Patient/patient field support representative demonstrates understanding of disease process, treatment [...] of 0 - 24 or indicated by [facility] Assessment Goal: Patient should be free from fall Description: Interventions: 1. [facility] to environment 2. Hourly rounds addressing the [...] non-skid footwear 11. Teach patient and patient field support representative to maintain environment for safety and [...] Collaborate with ancillary departments 14. Include patient/patient field support representative in decisions related to anxiety Outcome: [...] on patient's door 9. Provide patient/ patient field support representative with isolation education. Outcome: Progressing Note: Evaluation of progress towards goal: Skin integrity remains in stable condition; remains w/o ss of infection, fever, pain, or increased discomfort. Problem: Moderate - High Risk Fall Score Description: Gallegos Fall Score of =/> 25 or indicated by [facility] Health Rehab Assessment Goal: Patient should be free from fall Description: Interventions: 1. [facility] to environment 2. Hourly rounds addressing the [...] non-skid footwear 11. Teach patient and patient field support representative to maintain environment for safety and [...] (cane, walker) within reach 19. Request patient field support representative bring adaptive equipment/mobility aids from home or obtain and provide as needed 20. Consult pharmacy regarding effects of med's affecting mobility, cognition, and alternatives 21. Obtain physician order for PT if risk factors associated with mobility are present 22. Obtain physician order for OT as appropriate 23. Utilize diversional activities 24. Educate patient and patient field support representative how to maintain a safe environment during visitation times (notify nurse prior to leaving bedside) 25. Consider appropriateness of medical or non-medical officer psychiatry 26. Set up voiding schedule as appropriate (every 2 hours) Outcome: Progressing Note: Evaluation of progress towards goal: Call light within reach. Remains free of fall or injury. Environment free of clutter. BEHAVIORAL RESTRAINTS PROVIDER ONE HOUR [id number] EVALUATION NOTE Estella Jeffery was evaluated on [...] at the bedside 7. Instruct patient/ patient field support representative about use of safety devices 8. Include patient/ patient field support representative in decisions related to safety Outcome: [...] hygiene technique. 7. Identify and instruct patient/patient field support representative in use of appropriate isolation precautions for identified infection/symptoms. 8. Provide and discuss with patient/patient field support representative on educational MDRO sheet. 9. Encourage and monitor nutritional status daily and consult dairy manager if indicated. 10. Implement neutropenic guidelines as needed. Outcome: Progressing Note: Evaluation of progress towards goal: patient remains afebrile at this time Problem: Knowledge Deficit Goal: Patient/patient field support representative demonstrates understanding of disease process, treatment [...] of 0 - 24 or indicated by [facility] Assessment Goal: Patient should be free from fall Description: Interventions: 1. [facility] to environment 2. Hourly rounds addressing the [...] non-skid footwear 11. Teach patient and patient field support representative to maintain environment for safety and [...] Collaborate with ancillary departments 14. Include patient/patient field support representative in decisions related to anxiety Outcome: [...] injury from restraints (Restraint for Interference with Maintenance Porter) Description: INTERVENTIONS: 1. Determine that other, less [...] Free from restraint(s) (Restraint for Interference with Maintenance Porter) Description: INTERVENTIONS: 1. ONCE/SHIFT or MINIMUM Q12H: [...] on patient's door 9. Provide patient/ patient field support representative with isolation education. Outcome: Progressing Note: Evaluation of progress towards goal: patient remains afebrile at this time DISCHARGE PLANNING NOTE Clinical updates including sent to. [facility] [address] (P# [phone] ; F# [phone]) via efax Query Response Note CDI QUERY TEXT: Altered [...] . Thank you, Ethel Bueno RN, PRADEEP [email or web address] The patient's Clinical Indicators include: As above CDI RESPONSE TEXT: Patient has progression of dementia causing agitation, no evidence of metabolic or toxic encephalopathy. Query created by: Ethel Bueno on 07/09/2024 5:42 AM Electronically signed by: Lonnie Baker MD 07/09/2024 3:22 PM DISCHARGE PLANNING NOTE Referral sent to [facility] [address] (P# [phone] ; F# [phone]) via efax DISCHARGE PLANNING NOTE Per RN during discharge transition rounds, barriers to discharge are: Needs MRI with sedation, LP with sedation, non-violent restraints, confused, restless, and disoriented, psych needs to see Discharge Plan: TBD. Planning placement or inpatient behavioral unit. CN does not believe it is safe for patient to return home. Psych SW following. Drying Rack Changer will continue to follow for any discharge [...] at the bedside 7. Instruct patient/ patient field support representative about use of safety devices 8. Include patient/ patient field support representative in decisions related to safety Outcome: [...] hygiene technique. 7. Identify and instruct patient/patient field support representative in use of appropriate isolation precautions for identified infection/symptoms. 8. Provide and discuss with patient/patient field support representative on educational MDRO sheet. 9. Encourage and monitor nutritional status daily and consult dairy manager if indicated. 10. Implement neutropenic guidelines as needed. Outcome: Progressing Note: Evaluation of progress towards goal: monitor s/s of infection Problem: Knowledge Deficit Goal: Patient/patient field support representative demonstrates understanding of disease process, treatment [...] of 0 - 24 or indicated by [facility] Assessment Goal: Patient should be free from fall Description: Interventions: 1. [facility] to environment 2. Hourly rounds addressing the [...] non-skid footwear 11. Teach patient and patient field support representative to maintain environment for safety and [...] Collaborate with ancillary departments 14. Include patient/patient field support representative in decisions related to anxiety Outcome: [...] injury from restraints (Restraint for Interference with Maintenance Porter) Description: INTERVENTIONS: 1. Determine that other, less [...] Free from restraint(s) (Restraint for Interference with Maintenance Porter) Description: INTERVENTIONS: 1. ONCE/SHIFT or MINIMUM Q12H: [...] hourly rounding BEHAVIORAL RESTRAINTS PROVIDER ONE HOUR [id number] EVALUATION NOTE Estella Jeffery was evaluated on [...] self and others. Jackson Peterson PA-C 07/08/242014 NIGHT07/08/242300 On reassessment patient is resting in bed [...] restraint/seclusion order: No Jackson Peterson PA-C 07/08/24 9877 07/09/24-3:31 AM Called to bedside after patient woke [...] and others. Jackson Peterson PA-C 07/09/24 0344 [facility] NIGHT BEHAVIORAL RESTRAINTS PROVIDER ONE HOUR [id number] EVALUATION NOTE Estella Prabha Jeffery was evaluated on 07/08/2023 at 0441. [...] at the bedside 7. Instruct patient/ patient field support representative about use of safety devices 8. Include patient/ patient field support representative in decisions related to safety Outcome: [...] hygiene technique. 7. Identify and instruct patient/patient field support representative in use of appropriate isolation precautions for identified infection/symptoms. 8. Provide and discuss with patient/patient field support representative on educational MDRO sheet. 9. Encourage and monitor nutritional status daily and consult dairy manager if indicated. 10. Implement neutropenic guidelines as needed. Outcome: Progressing Note: Evaluation of progress towards goal: Patient has no infection at this time. Problem: Knowledge Deficit Goal: Patient/patient field support representative demonstrates understanding of disease process, treatment [...] of 0 - 24 or indicated by [facility] Assessment Goal: Patient should be free from fall Description: Interventions: 1. [facility] to environment 2. Hourly rounds addressing the [...] non-skid footwear 11. Teach patient and patient field support representative to maintain environment for safety and [...] Collaborate with ancillary departments 14. Include patient/patient field support representative in decisions related to anxiety Outcome: [...] at the bedside 7. Instruct patient/ patient field support representative about use of safety devices 8. Include patient/ patient field support representative in decisions related to safety Outcome: [...] hygiene technique. 7. Identify and instruct patient/patient field support representative in use of appropriate isolation precautions for identified infection/symptoms. 8. Provide and discuss with patient/patient field support representative on educational MDRO sheet. 9. Encourage and monitor nutritional status daily and consult dairy manager if indicated. 10. Implement neutropenic guidelines as needed. Outcome: Progressing Note: Evaluation of progress towards goal: monitor s/s of infection, monitor labs, standard precautions Problem: Knowledge Deficit Goal: Patient/patient field support representative demonstrates understanding of disease process, treatment [...] of 0 - 24 or indicated by [facility] Assessment Goal: Patient should be free from fall Description: Interventions: 1. [facility] to environment 2. Hourly rounds addressing the [...] non-skid footwear 11. Teach patient and patient field support representative to maintain environment for safety and [...] at the bedside 7. Instruct patient/ patient field support representative about use of safety devices 8. Include patient/ patient field support representative in decisions related to safety Outcome: [...] hygiene technique. 7. Identify and instruct patient/patient field support representative in use of appropriate isolation precautions for identified infection/symptoms. 8. Provide and discuss with patient/patient field support representative on educational MDRO sheet. 9. Encourage and monitor nutritional status daily and consult dairy manager if indicated. 10. Implement neutropenic guidelines as needed. Outcome: Progressing Note: Evaluation of progress towards goal: Patient remains free of any signs of infection. Signs and symptoms being monitor such as fevers, chills, warm/red areas. Problem: Knowledge Deficit Goal: Patient/patient field support representative demonstrates understanding of disease process, treatment [...] of 0 - 24 or indicated by [facility] Assessment Goal: Patient should be free from fall Description: Interventions: 1. [facility] to environment 2. Hourly rounds addressing the [...] non-skid footwear 11. Teach patient and patient field support representative to maintain environment for safety and [...] Description: INTERVENTIONS: 1. Encourage patient or legal field support representative to report early pain and ask [...] per policy 9. Teach patient or legal field support representative interventions for comforting Outcome: Completed Note: Evaluation of progress towards goal: Patient has no complaints of pain. Reassessed per policy. An attempt was made to interview the patient today in the presence of his . The patient refused and asked the justowriter operator to leave stating that he does not want a psychiatric evaluation. Psychiatry will sign off. Images from the original note were not included. DISCHARGE PLANNING NOTE Junior Manufacturing Engineer met with patient, introduced self, and explained role. Patient educated on safe discharge plan. Pt admitted 07/06/2024 with Dementia with behavioral disturbance ([facility]) [F03.918] At risk for long QT syndrome [Z91.89] Altered mental status [R41.82] per chart review. Consults: Neurology and Psychiatry Discharge Barriers per Daily Transition Rounds and chart review: Psych and neuro to see, will need EEG, MRI, CT brain. Past Medical History: Diagnosis Date GERD (gastroesophageal reflux disease) High cholesterol Perforated sigmoid colon ([facility]) Prior to admission patient was living with spouse/significant other and self care. Medical equipment patient used prior to admission includes: CPAP. Patient spouse denies need for transportation/ food/ prescription medication assistance resources. PCP: JAE LOPEZ MD Pharmacy:[facility] PCP and pharmacy confirmed with patient. [...] AM documented in this encounter [facility] 07-22-2024 Nurse Note AVS discussed with patient and family, no further questions about discharge. No further needs identified. Patient taken downstairs by wheelchair to be driven home by . Patient still off unit at this time 11:58 s/p sedated MRI & LP procedure. Per neurologist, Dr Johnson, patient needs to remain flat 1-2hrs & may have regular diet. Junior Manufacturing Engineer awaiting patient return to unit & per report 1:1 sitter remains at patient bedside. documented in this encounter [facility] 07-22-2024 Plan of care note Problem: [...] at the bedside 7. Instruct patient/ patient field support representative about use of safety devices 8. Include patient/ patient field support representative in decisions related to safety Outcome: Progressing Note: Evaluation of progress towards goal: pt remains free from injury. Family at bedside. Problem: Knowledge Deficit Goal: Patient/patient field support representative demonstrates understanding of disease process, treatment [...] be free from fall Description: Interventions: 1. [facility] to environment 2. Hourly rounds addressing the [...] non-skid footwear 11. Teach patient and patient field support representative to maintain environment for safety and [...] (cane, walker) within reach 19. Request patient field support representative bring adaptive equipment/mobility aids from home or obtain and provide as needed 20. Consult pharmacy regarding effects of med's affecting mobility, cognition, and alternatives 21. Obtain physician order for PT if risk factors associated with mobility are present 22. Obtain physician order for OT as appropriate 23. Utilize diversional activities 24. Educate patient and patient field support representative how to maintain a safe environment [...] be free from fall Description: Interventions: 1. [facility] to environment 2. Hourly rounds addressing the [...] non-skid footwear 11. Teach patient and patient field support representative to maintain environment for safety and [...] (cane, walker) within reach 19. Request patient field support representative bring adaptive equipment/mobility aids from home or obtain and provide as needed 20. Consult pharmacy regarding effects of med's affecting mobility, cognition, and alternatives 21. Obtain physician order for PT if risk factors associated with mobility are present 22. Obtain physician order for OT as appropriate 23. Utilize diversional activities 24. Educate patient and patient field support representative how to maintain a safe environment during visitation times (notify nurse prior to leaving bedside) 25. Consider appropriateness of medical or non-medical officer psychiatry 26. Set up voiding schedule as appropriate (every 2 hours) Outcome: Progressing Note: Evaluation of progress towards goal: pt remains free from falls. Fall precautions in place and family at bedside [facility] 07-21-2024 Progress note Formatting of t his note might be different from the original. DISCHARGE PLANNING NOTE Junior Manufacturing Engineer spoke with RN KAY Graf and with cupola charger insulation Mylena about current situation regarding appeal decision and DC plan to home with outpatient services. Junior Manufacturing Engineer placed a call to the who was in the patient's room due to the questions she had re: the discharge plan. Junior Manufacturing Engineer spoke with , Kari on 07/21/24 at 1325. Junior Manufacturing Engineer reviewed [facility]'s DC Appeal Determination Notification with the who confirmed that she had received a voicemail from [facility] this morning. Junior Manufacturing Engineer explained that [facility] had agreed with the termination of hospital services after having reviewed the uploaded clinical documents from this hospitalization that justowriter operator had sent to them yesterday. expressed verbal understanding to justowriter operator of [facility]'s decision. Junior Manufacturing Engineer explained that patient's financial liability would begin at Noon on 07/22/24 and offered our care navigation assistance with obtaining transportation to home. had questions about why referrals were not made to chcf facilities that family had now chosen, [facility] and [facility]). Junior Manufacturing Engineer explained to the that the patient did not meet the clinical criteria this time for a chcf/rehab facility level of care and reminded her that a discussion about this took place this past week/yesterday with the treatment team. explained that she never agreed to take her home and her and her family now want SNF placement. Junior Manufacturing Engineer continued to explain to the process [...] prior to bringing him to the hospital. Junior Manufacturing Engineer offered supportive listening to the and also offered for her to connect with patient's PCP, Dr. Lopez after she gets her home for resources. Junior Manufacturing Engineer also discussed the outpatient TBI clinic appointment that was being discussed yesterday and that information would be included on patient's after visit summary. Junior Manufacturing Engineer explained that if was not going to make arrangements to take patient home by noon on 07/22, that patient's financial responsibility of $2640.00 per day would begin. expressed verbal understanding to justowriter operator. Junior Manufacturing Engineer emailed financial responsibility form with instruction to cupola charger insulationCm COVARRUBIAS (and cce'd today's RN Lesia Felton for awareness) for bedside delivery today. is aware of pending paper copy delivery of this form. - NELLI GLEZ LEGAL AID CARE NAVIGATION 07/21/24 2:11 PM [facility] 07-21-2024 Progress note Formatting of t his note might be different from the original. DISCHARGE PLANNING NOTE We have received DC Appeal Determination Notification from [facility] and [facility] has agreed with the termination of services. Beneficiary liability begins 07.22.2024 by Noon. Beneficiary and/or beneficiary field support representative were to be notified of determination via phone call. [place] determination notification rec'd at 1032 and letter rec'd 1129 were received by justowriter operator via fax. Junior Manufacturing Engineer uploaded documents to document list. Documentation updated. Junior Manufacturing Engineer received forwarded voice mail 07/21/24 at [...] accept. Reference Case # given from Roger [id number]. Junior Manufacturing Engineer attempted to call Roger back on 07/21/24 at 1214 and justowriter operator rec'd auto message from [facility] which stated only live phone calls with [facility] are Tuesday thru Tuesday. Junior Manufacturing Engineer left voicemail citing reference case # [id number]. Junior Manufacturing Engineer stated reason for return phone call and requested call back from Roger. - NELLI GLEZ LEGAL AID CARE NAVIGATION 07/21/24 12:37 PM [facility] 07-21-2024 Plan of care note Problem: [...] at the bedside 7. Instruct patient/ patient field support representative about use of safety devices 8. Include patient/ patient field support representative in decisions related to safety Outcome: Progressing Note: Evaluation of progress towards goal: Pain will be adequately controlled to allow for rest and adl's Problem: Knowledge Deficit Goal: Patient/patient field support representative demonstrates understanding of disease process, treatment [...] Score of =/> 25 or indicated by [facility] Assessment Goal: Patient should be free from fall Description: Interventions: 1. [facility] to environment 2. Hourly rounds addressing the [...] non-skid footwear 11. Teach patient and patient field support representative to maintain environment for safety and [...] (cane, walker) within reach 19. Request patient field support representative bring adaptive equipment/mobility aids from home or obtain and provide as needed 20. Consult pharmacy regarding effects of med's affecting mobility, cognition, and alternatives 21. Obtain physician order for PT if risk factors associated with mobility are present 22. Obtain physician order for OT as appropriate 23. Utilize diversional activities 24. Educate patient and patient field support representative how to maintain a safe environment during visitation times (notify nurse prior to leaving bedside) 25. Consider appropriateness of medical or non-medical officer psychiatry 26. Set up voiding schedule as appropriate (every 2 hours) Outcome: Progressing Note: Evaluation of progress towards goal: fall bundle [employer] 07-21-2024 History of Present illness Narrative Images from the original note were not included. 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 Epic chat #2. [facility] team pager Available from 7 am to 7 pm Images from the original note were not included. [facility] Neurology General Neurology Consultation Progress Note Consult Neurology Service: [phone] Primary Team: [facility] Hospitalist Chief Concern and Reason for Consultation: cognitive decline Interval History: Estella Jeffery is a 59 y.o. year old male for whom Neurology was consulted for chief concern of cognitive decline. He has history of hyperlipidemia, complex sleep apnea, GERD, type 2 diabetes, major neurocognitive disorder with biomarkers confirmed early onset Alzheimer's disease (established at [facility] in October 2022), and epilepsy from [...] and proprioception throughout. Cerebellar: Able to do [id number] bilaterally; normal coordination Gait and station: Deferred. [...] confirmed early onset Alzheimer's disease (established at [facility] in October 2022), and epilepsy from [...] to Tuesday 12-1:00 p.m. Primary Neurology service: [phone] Consult neurology service: [phone] Resident Stroke Service: [phone] If the patient belongs to the Stroke [...] from the original note were not included. [facility] HOSPITAL[facility] PROGRESS NOTE 07/19/2024 Patient Name: Estella Jeffery : 1965 Code status: Problem List: Principal Problem: Dementia with behavioral disturbance ([facility]) Active Problems: Altered mental status Status post colostomy, follow-up exam ([facility]) Consulting Providers Provider Service Specialty Mina Franks MD Psychiatry Psychiatry Jessica Johnson MD -- Neurology MD Janet Montes Physical Medicine and Rehabilitation Physical Medicine & Rehabilitation Chief complaint-behavioral issues 59-year-old male patient with Confirmed early onset Alzheimer's disease established in [facility] October 2022, patient had fall June 09, [...] per family request. I also spoke with [facility] neurology 's office. They said that they are independent office and they do not have resources for transfer or admission to [facility]. They also will not be able [...] from the original note were not included. [facility] HOSPITAL[facility] PROGRESS NOTE 07/18/2024 Patient Name: Estella Jeffery : 1965 Code status: Problem List: Principal Problem: Dementia with behavioral disturbance ([facility]) Active Problems: Altered mental status Status post colostomy, follow-up exam ([facility]) Consulting Providers Provider Service Specialty Mina Franks MD Psychiatry Psychiatry Jessica Johnson MD -- Neurology Sonya Astudillo MD Z Physical Medicine and Rehabilitation Physical Medicine & Rehabilitation Chief complaint-behavioral issues 59-year-old male patient with Confirmed early onset Alzheimer's disease established in [facility] October 2022, patient had fall June 09, [...] today. Patient working with therapies. Going to [facility]. No new weakness. Objective: Last Filed Vitals: [...] ulnar artery Dementia with behavioral disturbance ([facility]) Altered mental status Status post colostomy, follow-up exam ([facility]) PLAN Cont PT/OT - would recommend inpatient rehabilitation DVT prophylaxis - heparin 5000 units t.i.d. Agitation Seroquel, Depakote Pain management - Tylenol p.r.n. Dementia Aricept Monitor bowel/bladder/skin Per your medical management PQRS measures: I attest and have documented/reviewed all medications in patients chart Electronically signed by Silvestre MORALESA.A.P.M.R. 07/17/2024 NUTRITION ADULT FOLLOW UP NUTRITION ASSESSMENT: Patient History: Brief Clinical Summary: Pt transferred and direct admitted to [facility] as a transfer from [facility] for neurological evaluation 2/2 aggressive behavior and hostility. PMH: early-onset dementia, T2DM, GERD, and perforated colon. Biochemical Data, Medical Tests, and Procedures: 07/16, restraints: pt now out of restraints with miniature model maker at side Labs: Results from last [...] (H) 05/10/2016 Lab Results Component Value Date [id number] 526 07/08/2024 Lab Results Component Value Date [...] capsule 500 mg 500 mg oral Q12H JAREK Nichol Heath MD 500 mg at 07/17/24 [...] 5,000 Units 5,000 Units subcutaneous Q8H [facility] Nichol Heath MD 5,000 Units at [...] flush 3 mL 3 mL intravenous Q12H [facility] Nichol Heath MD 3 mL at 07/14/242113 sodium chloride 0.9 % flush bag 25 mL intravenous PRN Nichol Heath MD ziprasidone (GEODON) injection 10 mg 10 mg intramuscular Q6H PRN Lonnie Baker MD 10 mg at 07/12/24 0026 Nutrition Focused Physical Findings +wound incision to the back, +wound soft tissue necrosis of the left anterior elbow Skin (per nursing flow sheets): Skin Color: [place]; Pale (07/17/24904) Skin Temp: Warm; Dry (07/17/24904) [...] Intakes: Percent Meals Eaten (%): 100 (07/16/24 173) Per family, pt is now eating 100% [...] oz) Admit Weight: 83.9 kg (unknown, 06/24) [place] Body Weight: Unknown as no wt on file Weight Changes: No wt since admission 2/2 pt aggression Admit Body Mass Index: Same as current BMI Current Body Mass Index: Body mass index is 30.78 kg/m . Comparative Standards: Estimated Energy Needs: 3530-3750 kcals daily. Method and weight used: 25-32 kcal/kg IBW Estimated Protein Needs: 74-124 grams daily. Method and weight used: 1.2-2g protein/kg IBW Estimated Fluid Needs: 4238-3115 ml daily. Method weight used: 1 ml/kcal Comments: floor needs Malnutrition Status: Malnutrition Present: No NUTRITION DIAGNOSIS: Intake Diagnosis: Predicted suboptimal nutrient intake (NI 5.11.1)--ongoing NUTRITION INTERVENTIONS: Meals and Snacks: Continue per LICENSING SERVICES CLERK and medical team recommendations Supplements: Will add [...] from the original note were not included. [facility] H[facility]PITAL[facility] PROGRESS NOTE 07/17/2024 Patient Name: Estella Jeffery : 1965 Code status: Problem List: Principal Problem: Dementia with behavioral disturbance ([facility]) Active Problems: Altered mental status Status post colostomy, follow-up exam ([facility]) Consulting Providers Provider Service Specialty Mina Franks MD Psychiatry Psychiatry Jessica Johnson MD -- Neurology Sonya Astudillo MD Z Physical Medicine and Rehabilitation Physical Medicine & Rehabilitation Chief complaint-behavioral issues 59-year-old male patient with Confirmed early onset Alzheimer's disease established in [facility] October 2022, patient had fall June 09, [...] note were not included. [facility] 07/16/2024 Patient Name: Estella Jeffery : 1965 Problem List: Principal Problem: Dementia with behavioral disturbance ([facility]) Active Problems: Altered mental status Status post colostomy, follow-up exam ([facility]) Assessment Rapid onset Dementia with behavioral disturbances [...] Spinal Fluid culture includes gram stain, CSF [[id number]] Collected: 07/10/24 0939 Specimen: Cerebrospinal Fluid Updated: 07/15/24 0656 Gram Stain Result WHITE BLOOD CELLS PRESENT NO ORGANISMS SEEN ON CONCENTRATED SMEAR Culture NO GROWTH 5 DAYS Physical Medicine and Rehabilitation Daily Progress Note Today's Date and Time: 07/16/2024, 9:31 AM Subjective/Chief complaint: Dementia with behavioral disturbance ([facility]) Principal Problem: Dementia with behavioral disturbance ([facility]) Active Problems: Altered mental status Status post colostomy, follow-up exam ([facility]) SUBJECTIVE Resting in bed, no distress, afebrile [...] left ulnar artery Dementia with behavioral disturbance ([facility]) Altered mental status Status post colostomy, follow-up exam ([facility]) Recommendations/Plan: Continue PT, OT and speech therapy Contact guard assist with gait and transfers Will need 24 hour supervision Fall precautions, status post fall Family education Melatonin to regulate sleep cycle Awaiting on placement Will follow up with you for rehab needs Sonya Astudillo MD Images from the original note were not included. [facility] 07/15/2024 Patient Name: Estella Jeffery : 1965 Problem List: Principal Problem: Dementia with behavioral disturbance ([facility]) Active Problems: Altered mental status Status post colostomy, follow-up exam ([facility]) Assessment Rapid onset Dementia with behavioral disturbances [...] Spinal Fluid culture includes gram stain, CSF [[id number]] Collected: 07/10/24 0939 Specimen: Cerebrospinal Fluid Updated: 07/15/24 0656 Gram Stain Result WHITE BLOOD CELLS PRESENT NO ORGANISMS SEEN ON CONCENTRATED SMEAR Culture NO GROWTH 5 DAYS Physical Medicine and Rehabilitation Daily Progress Note Today's Date and Time: 07/15/2024, 8:01 AM Subjective/Chief complaint: Dementia with behavioral disturbance ([facility]) Principal Problem: Dementia with behavioral disturbance ([facility]) Active Problems: Altered mental status Status post colostomy, follow-up exam ([facility]) SUBJECTIVE Resting in bed, no distress, Brief [...] ulnar artery Dementia with behavioral disturbance ([facility]) Altered mental status Status post colostomy, follow-up exam ([facility]) Recommendations/Plan: Continue PT, OT and speech therapy Contact guard assist with gait and transfers Will need 24 hour supervision Fall precautions, status post fall Family education Melatonin to regulate sleep cycle Awaiting on placement Will follow up with you for rehab needs Sonya Astudillo MD Images from the original note were not included. [facility] 2024 Patient Name: Estella Jeffery : 1965 Problem List: Principal Problem: Dementia with behavioral disturbance ([facility]) Active Problems: Altered mental status Status post colostomy, follow-up exam ([facility]) Assessment Rapid onset Dementia with behavioral disturbances [...] Spinal Fluid culture includes gram stain, CSF [[id number]] Collected: 07/10/24938 Specimen: Cerebrospinal Fluid Updated: 07/14/24901 Gram Stain Result WHITE BLOOD CELLS PRESENT NO ORGANISMS SEEN ON CONCENTRATED SMEAR Culture NO GROWTH 4 DAYS Physical Medicine and Rehabilitation Daily Progress Note Today's Date and Time: 2024, 8:23 AM Subjective/Chief complaint: Dementia with behavioral disturbance ([facility]) Principal Problem: Dementia with behavioral disturbance ([facility]) Active Problems: Altered mental status Status post colostomy, follow-up exam ([facility]) SUBJECTIVE Resting in bed, no distress, Brief [...] ulnar artery Dementia with behavioral disturbance ([facility]) Altered mental status Status post colostomy, follow-up exam ([facility]) Recommendations/Plan: Continue PT, OT and speech therapy Contact guard assist with gait and transfers Will need 24 hour supervision Fall precautions, status post fall Family education Melatonin to regulate sleep cycle Awaiting on placement Will follow up with you for rehab needs Sonya Astudillo MD Images from the original note were not included. [facility] 07/13/2024 Patient Name: Estella Jeffery : 1965 Problem List: Principal Problem: Dementia with behavioral disturbance ([facility]) Active Problems: Altered mental status Status post colostomy, follow-up exam ([facility]) Assessment Rapid onset Dementia with behavioral disturbances [...] Spinal Fluid culture includes gram stain, CSF [[id number]] Collected: 07/10/24 0939 Specimen: Cerebrospinal Fluid Updated: 07/13/24 0700 Gram Stain Result WHITE BLOOD CELLS PRESENT NO ORGANISMS SEEN ON CONCENTRATED SMEAR Culture NO GROWTH 3 DAYS Physical Medicine and Rehabilitation Daily Progress Note Today's Date and Time: 07/13/2024, 9:28 AM Subjective/Chief complaint: Dementia with behavioral disturbance ([facility]) Principal Problem: Dementia with behavioral disturbance ([facility]) Active Problems: Altered mental status Status post colostomy, follow-up exam ([facility]) SUBJECTIVE Resting in bed, denies any chest [...] No results found for: ALB , PROT @LABRCNT([facility]:3)@ No results found for: [...] ulnar artery Dementia with behavioral disturbance ([facility]) Altered mental status Status post colostomy, follow-up exam ([facility]) Recommendations/Plan: Continue PT, OT and speech therapy Contact guard assist with gait and transfers Will benefit from inpatient rehab, TBI Unit Will need 24 hour supervision Fall precautions, status post fall Family education Melatonin to regulate sleep cycle Will follow up with you for rehab needs Sonya Astudillo MD Images from the original note were not included. [facility] 07/12/2024 Patient Name: Estella Jeffery : 1965 Problem List: Principal Problem: Dementia with behavioral disturbance ([facility]) Active Problems: Altered mental status Status post colostomy, follow-up exam ([facility]) Assessment Rapid onset Dementia with behavioral disturbances [...] Spinal Fluid culture includes gram stain, CSF [[id number]] Collected: 07/10/24 0939 Specimen: Cerebrospinal Fluid Updated: 07/12/24 0736 Gram Stain Result WHITE BLOOD CELLS PRESENT NO ORGANISMS SEEN ON CONCENTRATED SMEAR Culture NO GROWTH 2 DAYS Images from the original note were not included. [facility] Neurology General Neurology Consultation Progress Note Consult Neurology Service: [phone] Chief Complaint and Reason for Consultation: Decline [...] with complete remission. He follows up with [facility] Neurology and had underwent a heavy [...] decline, Patient had presented to ED in [place] June 18 after waking up not oriented and delusional. Then June 25 he woke up again not knowing where he is delusional thinking his sister was an intruder so he was brought to [facility] and discharged later that evening. He was seen by social worker clinical referred to a mental health center and per family his mental status had worsened and they felt he was being overmedicated with Benadryl. 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 The impression there was no infectious or metabolic etiology so patient was transferred to [facility] for higher level of care. Interval [...] markers confirmed early onset Alzheimer's established in [facility] September 2022 (Dr. Lemuel Guerra) but reportedly functional at home per family, in addition to hyperlipidemia, GERD, T2DM. Patient was transferred found [facility] for higher level of care and workup of sharp decline in cognition since May 2024. Patient had presented multiple times to the ED and admitted [facility] for delusional thinking/hallucinations/agitatio n. Impression: Acute decline [...] Haley MD PGY2 Neurology [facility] Seen and staffed with: Dr. Nails This patient is being followed by the Neurology Resident service. Contact attending directly during these hours: Tuesday to 7:30-8:30 A.M. to Tuesday 12-1:00 p.m. Primary Neurology service: [phone] Consult neurology service: [phone] Resident Stroke Service: [phone] If the patient belongs to the Stroke [...] any question or concerns. Zach Nails MD. Fixture Relamper of Neurology [facility] Images from the original note were not included. [facility] 07/11/2024 Patient Name: Estella Jeffery : [...] discharge, currently working on disposition. Refused from [address] [place] [address] facility DVT prophylaxis: Heparin Code Status: Full [...] COMPARISON: July 03, 2024 brain MRI from [facility] Procedure: Multiplanar, multisequence imaging performed through the [...] and cranio-cervical junction. Flow voids documented in [place] and dural venous sinuses. No [...] Spinal Fluid culture includes gram stain, CSF [[id number]] Collected: 07/10/24 0939 Specimen: Cerebrospinal Fluid Updated: 07/11/24 0718 Gram Stain Result WHITE BLOOD CELLS PRESENT NO ORGANISMS SEEN ON CONCENTRATED SMEAR Culture NO GROWTH <24 HRS Images from the original note were not included. [facility] Neurology General Neurology Consultation Progress Note Consult Neurology Service: [phone] Chief Complaint and Reason for Consultation: Decline [...] with complete remission. He follows up with [facility] Neurology and had underwent a heavy metal screen, [facility] analysis, MRI 2021 showing severe generalized volume [...] decline, Patient had presented to ED in [place] June 18 after waking up not oriented and delusional. Then June 25 he woke up again not knowing where he is delusional thinking his sister was an intruder so he was brought to [facility] and discharged later that evening. He was seen by social worker clinical referred to a mental health center and per family his mental status had worsened and they felt he was being overmedicated with Benadryl. 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 The impression there was no infectious or metabolic etiology so patient was transferred to [facility] for higher level of care. Interval [...] markers confirmed early onset Alzheimer's established in [facility] September 2022 (Dr. Lemuel Guerra) but reportedly functional at home per family, in addition to hyperlipidemia, GERD, T2DM. Patient was transferred found [facility] for higher level of care and workup of sharp decline in cognition since May 2024. Patient had presented multiple times to the ED and admitted [facility] for delusional thinking/hallucinations/agitatio n. Impression: Acute decline [...] Haley MD PGY2 Neurology [facility] Seen and staffed with: Dr. Nails This patient is being followed by the Neurology Resident service. Contact attending directly during these hours: Tuesday to 7:30-8:30 A.M. to Tuesday 12-1:00 p.m. Primary Neurology service: [phone] Consult neurology service: [phone] Resident Stroke Service: [phone] If the patient belongs to the Stroke [...] evaluation and appropriate disposition. Zach Nails MD. Fixture Relamper of Neurology [facility] Images from the original note were not included. [facility] 07/10/2024 Patient Name: Estella Jeffery : [...] COMPARISON: July 03, 2024 brain MRI from [facility] Procedure: Multiplanar, multisequence imaging performed through the [...] and cranio-cervical junction. Flow voids documented in [place] and dural venous sinuses. No [...] Spinal Fluid culture includes gram stain, CSF [[id number]] Resulted: 07/10/24 1055 Updated: 07/10/24 1148 Images from the original note were not included. [facility] 07/09/2024 Patient Name: Estella Jeffery : [...] note were not included. [facility] Neurology General Neurology Consultation Progress Note Consult Neurology Service: [phone] Chief Complaint and Reason for Consultation: Decline [...] with complete remission. He follows up with [facility] Neurology and had underwent a heavy [...] decline, Patient had presented to ED in [place] June 18 after waking up not oriented and delusional. Then June 25 he woke up again not knowing where he is delusional thinking his sister was an intruder so he was brought to [facility] and discharged later that evening. He was seen by social worker clinical referred to a mental health center and per family his mental status had worsened and they felt he was being overmedicated with Benadryl. 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 The impression there was no infectious or metabolic etiology so patient was transferred to [facility] for higher level of care. Interval [...] markers confirmed early onset Alzheimer's established in [facility] September 2022 (Dr. Lemuel Guerra) but reportedly functional at home per family, in addition to hyperlipidemia, GERD, T2DM. Patient was transferred found [facility] for higher level of care and workup of sharp decline in cognition since May 2024. Patient had presented multiple times to the ED and admitted [facility] for delusional thinking/hallucinations/agitatio n. Impression: Acute decline [...] Haley MD PGY2 Neurology [facility] Seen and staffed with: Dr. Nails This patient is being followed by the Neurology Resident service. Contact attending directly during these hours: Tuesday to 7:30-8:30 A.M. to Tuesday 12-1:00 p.m. Primary Neurology service: [phone] Consult neurology service: [phone] Resident Stroke Service: [phone] If the patient belongs to the Stroke [...] of violent/anger outburst/paranoid behavior. Zach Nails MD. Fixture Relamper of Neurology [facility] NUTRITION ADULT INITIAL EVALUATION NUTRITION ASSESSMENT: [...] 11/24/2019 Performed by Skyler Bowen MD at [facility] COLONOSCOPY JANICE 3YEARS AGO COLOSTOMY CLOSURE Social/ Cognitive/ Economic: Pt in an agitated state and screaming from room. Unable to see pt as RN reports he has been in a very agitated state at the time of RD visit. Brief Clinical Summary: Pt transferred and direct admitted to [facility] as a transfer from [facility] for neurological evaluation 2/2 aggressive behavior [...] (H) 05/10/2016 Lab Results Component Value Date [id number] 526 07/08/2024 Lab Results Component Value Date [...] 5,000 Units 5,000 Units subcutaneous Q8H [facility] Nichol Heath MD 5,000 Units at 07/09/24 [...] flush 3 mL 3 mL intravenous Q12H [facility] Nichol Heath MD 3 mL at 07/09/24 [...] Skin (per nursing flow sheets): Skin Color: [place]; Pale (07/08/24827) Skin Temp: Warm; Dry (07/08/24827) [...] Weight: Unknown as no wt on file. [place] Body Weight: 61.8 kg Percent [place] Body Weight: 136 Weight Changes: No wt's on file to assess Body Mass Index: 30.7 kg^m2 BMI Category: Obese (> or = 30.0) Note: Calculations based on previous wt and ht on file from 06/24 07/22 no anthropometrics on file for this admission. Comparative Standards: Estimated Energy Needs: 8674-9307 kcals daily. Method and weight used: 25-32 kcal/kg IBW Estimated Protein Needs: 74-124 grams daily. Method and weight used: 1.2-2g protein/kg IBW Estimated Fluid Needs: 6764-9350 ml daily. Method weight used: 1 ml/kcal Comments: floor needs Malnutrition Status: Malnutrition Present: No NUTRITION DIAGNOSIS: Intake Diagnosis: Predicted suboptimal nutrient intake (NI 5.11.1) related to self monitoring deficit as evidenced by nursing screen reporting pt eating <50% of normal intake x 2 weeks. NUTRITION INTERVENTIONS: Meals and Snacks: Continue per LICENSING SERVICES CLERK and medical team recommendations Supplements: Will add [...] PO intake, GI function, I/Os, POC. Merary Hunt MS, RD, LD, CDN Clinical Dietitian Images from the original note were not included. [facility] 07/08/2024 Patient Name: Estella Jeffery : 1965 [...] MR brain and lumbar puncture under sedation P.geetha Pak EKG pending EEG completed, no epileptic focus [...] note were not included. [facility] Neurology General Neurology Consultation Progress Note Consult Neurology Service: [phone] Chief Complaint and Reason for Consultation: Decline [...] with complete remission. He follows up with [facility] Neurology and had underwent a heavy [...] decline, Patient had presented to ED in [place] June 18 after waking up not oriented and delusional. Then June 25 he woke up again not knowing where he is delusional thinking his sister was an intruder so he was brought to [facility] and discharged later that evening. He was seen by social worker clinical referred to a mental health center and per family his mental status had worsened and they felt he was being overmedicated with Benadryl. 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 The impression there was no infectious or metabolic etiology so patient was transferred to [facility] for higher level of care. Interval [...] markers confirmed early onset Alzheimer's established in [facility] September 2022 (Dr. Lemuel Guerra) but reportedly functional at home per family, in addition to hyperlipidemia, GERD, T2DM. Patient was transferred found [facility] for higher level of care and workup of sharp decline in cognition since May 2024. Patient had presented multiple times to the ED and admitted [facility] for delusional thinking/hallucinations/agitatio n. Impression: Acute decline [...] follow. Cecile Henry MD PGY-3 Neurology Resident [facility] Seen and staffed with: Dr. Nails This patient is being followed by the Neurology Resident service. Contact attending directly during these hours: Tuesday to 7:30-8:30 A.M. to Tuesday 12-1:00 p.m. Primary Neurology service: [phone] Consult neurology service: [phone] Resident Stroke Service: [phone] If the patient belongs to the Stroke [...] of violent/anger outburst/paranoid behavior. Zach Nails MD. Fixture Relamper of Neurology [facility] Images from the original note were not included. [facility] Neurology General Neurology Consultation Progress Note Consult Neurology Service: [phone] Chief Complaint and Reason for Consultation: Decline [...] with complete remission. He follows up with [facility] Neurology and had underwent a heavy metal screen, [facility] analysis, MRI 2021 showing severe generalized volume [...] decline, Patient had presented to ED in [place] June 18 after waking up not oriented and delusional. Then June 25 he woke up again not knowing where he is delusional thinking his sister was an intruder so he was brought to [facility] and discharged later that evening. He was seen by social worker clinical referred to a mental health center and per family his mental status had worsened and they felt he was being overmedicated with Benadryl. 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 The impression there was no infectious or metabolic etiology so patient was transferred to [facility] for higher level of care. Interval [...] markers confirmed early onset Alzheimer's established in [facility] October 2022 in addition to hyperlipidemia, GERD, dm 2. Patient was transferred found [facility] for higher level of care and workup of sharp decline in cognition since May 2024. Patient had presented multiple times to the ED and admitted [facility] for delusional thinking/hallucinations/agitatio n. Impression: Acute decline [...] Haley MD PGY2 Neurology [facility] Seen and staffed with: Dr. Nails This patient is being followed by the Neurology Resident service. Contact attending directly during these hours: Tuesday to 7:30-8:30 A.M. to Tuesday 12-1:00 p.m. Primary Neurology service: [phone] Consult neurology service: [phone] Resident Stroke Service: [phone] If the patient belongs to the Stroke [...] type), obtain routine EEG. Zach Nails MD. Fixture Relamper of Neurology [facility] Images from the original note were not included. [facility] 07/07/2024 Patient Name: Estella Jeffery : 1965 [...] last 168 hours. documented in this encounter [facility] 07-21-2024 Plan of care note Problem: [...] at the bedside 7. Instruct patient/ patient field support representative about use of safety devices 8. Include patient/ patient field support representative in decisions related to safety Outcome: Progressing Note: Evaluation of progress towards goal: pt remains free from injury Problem: Knowledge Deficit Goal: Patient/patient field support representative demonstrates understanding of disease process, treatment [...] Score of =/> 25 or indicated by [facility] Assessment Goal: Patient should be free from fall Description: Interventions: 1. [facility] to environment 2. Hourly rounds addressing the [...] non-skid footwear 11. Teach patient and patient field support representative to maintain environment for safety and [...] (cane, walker) within reach 19. Request patient field support representative bring adaptive equipment/mobility aids from home or obtain and provide as needed 20. Consult pharmacy regarding effects of med's affecting mobility, cognition, and alternatives 21. Obtain physician order for PT if risk factors associated with mobility are present 22. Obtain physician order for OT as appropriate 23. Utilize diversional activities 24. Educate patient and patient field support representative how to maintain a safe environment during visitation times (notify nurse prior to leaving bedside) 25. Consider appropriateness of medical or non-medical officer psychiatry 26. Set up voiding schedule as appropriate (every 2 hours) Outcome: Progressing Note: Evaluation of progress towards goal: fall precautions in place and pt remains free from falls [facility] 07-20-2024 Progress note Formatting of t his note might be different from the original. DISCHARGE PLANNING NOTE Patient's family has appealed his discharge & we have received notification from [facility] that a DC appeal has been called in. The chart, DND form, & IMM have been successfully uploaded by justowriter operator to the O/[facility] and successfully received by [facility]. [facility] will notify the of the patient of the appeal determination. Junior Manufacturing Engineer phone called patient's & read the DND notice to her. Paper copy of the DND notice to be delivered to the patient's bedside. Junior Manufacturing Engineer informed to anticipate phone call from [facility] re: determination of DC Appeal & encouraged wifeto answer the phone when [facility] calls. expressed verbal understanding of DND and the DC appeal process. - NELLI GLEZ LEGAL AID CARE NAVIGATION 07/20/24 5:13 PM [facility] 07-20-2024 Consult note Associated Order (s): IP CONSULT TO NEUROSURGERY Images from the original note were not included. [facility] [address] [place] [address], [address] [place] [address] * NEUROSURGERY CONSULT NOTE DATE:07/20/2024 PATIENT'S NAME: [...] mg, 500 mg, oral, Q12H JAREK, Nichol Hetah MD, 500 mg at 07/20/24 0839 donepeziL [...] tablet, 1 tablet, oral, Q12H PRN, Nichol eHath MD sodium chloride 0.9 % flush 3 [...] 11/24/2019 Performed by Skyler Bowen MD at [facility] COLONOSCOPY JANICE 3YEARS AGO COLOSTOMY CLOSURE PUNCTURE LUMBAR N/A 07/10/2024 Performed by Zach Nails MD at [facility] FAMILY HISTORY Family History Problem Relation [...] care per primary team FRAN Burton Neurosurgery [facility] Please contact via [employer] first then can utilize Patient touch/VoceraEdge if needed- 07/20/24 3:45 PM To find out which ASHLEE is on for the day please go to Loop and use log in DriftToIt and search for PTH Neurosurgery FRAN Charles 07/20/24 1632 [facility] 07-20-2024 Consult note Associated Order (s): IP CONSULT TO NEUROSURGERY Images from the original note were not included. [facility] [address] [place] [address], [address] [place] [address] * NEUROSURGERY CONSULT NOTE DATE:07/20/2024 PATIENT'S NAME: [...] mg, 650 mg, oral, Q4H PRN, Jennifer eMdel MD dextrose (GLUTOSE) 40 % gel 15 [...] 11/24/2019 Performed by Skyler Bowen MD at [facility] COLONOSCOPY JANICE 3YEARS AGO COLOSTOMY CLOSURE PUNCTURE LUMBAR N/A 07/10/2024 Performed by Zach Nails MD at [facility] FAMILY HISTORY Family History Problem Relation [...] care per primary team FRAN Burton Neurosurgery [facility] [employer] Please contact via [employer] first then can utilize Patient touch/VoceraEdge if needed- 07/20/24 3:45 PM To find out which ASHLEE is on for the day please go to Loop and use log in DriftToIt and search for PTH Neurosurgery FRAN Charles 07/20/24 4403 Images from the original note were not included. [facility] Neurology General Neurology Consult Note Primary Neurology service: [phone] Patient - Estella Jeffery Age - 59 y.o. [facility] 1965 [id number] Date of Admission - 07/06/2024 7:28 AM [...] with complete remission. He follows up with [facility] Neurology and had underwent a heavy [...] B12 was greater than 500. Ammonia and Sahrma were normal and thyroid were within normal [...] and symmetric in all four extremities. Coordination Izpzch-eb-dbfs, rapid alternating movements and dujv-uo-hgcj normal bilaterally without dysmetria. Gait Deferred. Psychiatric [...] biomarkers confirmed early onset diagnosis established in [facility] September 2022 but reportedly functional at home per family in addition to hyperlipidemia, GERD, dm 2. Patient was transferred from [facility] for higher level of care and workup [...] Neurology standpoint Elana Valerio MD PGY-1 Neurology [facility] 07/19/24 1:[address] Sofia This patient is being followed by the Neurology Resident service. Contact attending directly during these hours: Tuesday to 7:30-8:30 A.M. to Tuesday 12-1:00 p.m. Primary Neurology service: [phone] Consult neurology service: [phone] Resident Stroke Service: [phone] If the patient belongs to the Stroke [...] for: EAG Lab Results Component Value Date [id number] 07/08/2024 Neurological work up: CT head CTA head and neck MRI brain 05/07/2022 hippocampal volume loss. White matter changes. 2 D echo Assessment and recommendations Delirium superimposed on baseline cognitive impairment Presyncope likely neurocardiogenic Hypotension Early-onset Alzheimer disease confirmed with bio markers at [facility] Upon examination patient is awake, is [...] Compliant: Principal Problem: Dementia with behavioral disturbance ([facility]) Active Problems: Altered mental status Status post colostomy, follow-up exam ([facility]) Reason for Consultation: Rehabilitation Candidacy and Rehab Ticketing Agent Physicians/Services Consulting Providers Provider Service Specialty Mina [...] disease) High cholesterol Perforated sigmoid colon (CMS-HCC) PSH Past Surgical History: Procedure Laterality Date ARM EXPLORATION WITH REPAIR LACERATED ULNAR ARTERY Left 11/24/2019 Performed by Skyler Bowen MD at [facility] COLONOSCOPY [place] 3YEARS AGO COLOSTOMY CLOSURE Allergies Allergies Allergen [...] Cytology Collection Time: 07/10/24 9:39 AM Narrative [facility] [address] [place] [address] Cytology Consultation Patient Name:ESTELLA JEFFERY:1965 (Age: 58)Gender:MTaken:07/10/2024Report ed:07/11/2024 16:49Physician(s):Arnulfo Haley M.D. ([phone])Copy To:Quinton Harrell M.D. Rec. #:[id number]: #[id number] Final Cytologic Diagnosis Cerebrospinal fluid: No malignant cells identified. 07/11/2024 Interpretation [place] [address], License number: [id number].Electronically Signed Out By Derick Lorenz MD Additional Report(s): Flow Cytometry-Surg/BM/NG Date Reported: # Immunophenotyping antibodies tested: CD3, CD4, CD5, CD7, CD8, CD19, CD20, CD45, Murtaugh, and Lambda. Immunophenotyping Comment: Immunophenotyping has been used in this diagnostic evaluation. This test was developed and its performance characteristics determined by the [facility] Department. It has not been [...] MD Clinical History Dementia with behavioral disturbance ([facility]) F03.918, acute change in personality Gross Description Received was 2ml of clear colorless fluid unfixed labeled as Jeffery, CSF . Also received is one cytospin slide from Hematology. Source of Specimen Cerebrospinal fluid Non MANAGER OF SUSTAINABILITY ThinPrep, Cytospin Slide Fee Code(s): 1; 35032 VDRL, Spinal Fluid Collection Time: 07/10/24 9:39 [...] Assessment/Plan Principal Problem: Dementia with behavioral disturbance ([facility]) Active Problems: Altered mental status Status post colostomy, follow-up exam ([facility]) Acute mental status change patient also was [...] restraint CHIEF COMPLAINT: Dementia with behavioral disturbance ([facility]) Estella Jeffery is a 58 y.o. male who presents with Dementia with behavioral disturbance ([facility]) .he is HISTORY OF PRESENT ILLNESS: The patient is a 58-year-old Prydeinig male treatment at the [facility] for the patient has a substantial history of dyslipidemia, sleep apnea, type 2 diabetes mellitus, recent diagnosed history of early-onset Alzheimer's dementia, an epileptic disorder in remission, as well as a recent admission to [facility] for altered mental status. An MRI of [...] 11/24/2019 Performed by Skyler Bowen MD at [facility] 3YEARS AGO COLOSTOMY CLOSURE Medications Prior to [...] note were not included. [facility] Neurology General Neurology Consult Note Primary Neurology service: [phone] Chief Complaint: HPI: Estella Jeffery is a [...] with complete remission. He follows up with [facility] Neurology and had underwent a heavy metal screen, [facility] analysis, MRI 2021 showing severe generalized volume [...] decline, Patient had presented to ED in [place] June 18 after waking up not oriented and delusional. Then June 25 he woke up again not knowing where he is delusional thinking his sister was an intruder so he was brought to [facility] and discharged later that evening. He was seen by social worker clinical referred to a mental health center and per family his mental status had worsened and they felt he was being overmedicated with Benadryl. 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 The impression there was no infectious or metabolic etiology so patient was transferred to [facility] for higher level of care. On my evaluation patient was restless fidgeting and did not allow me to speak him or enter the room, he would tell me his family members names what refused to tell me his name asked me to leave the room. I could not do any assessment [place] test or neurological exam. Per family patient [...] markers confirmed early onset Alzheimer's established in [facility] October 2022 in addition to hyperlipidemia, GERD, dm 2. Patient was transferred found [facility] for higher level of care and workup of sharp decline in cognition since May 2024. Patient had presented multiple times to the ED and admitted [facility] for delusional thinking/hallucinations/agitatio n. On evaluation patient [...] once reconciled. Elana Valerio MD PGY-1 Neurology [facility] 07/06/24 9:[address] Sofia This patient is being followed by the Neurology Resident service. Contact attending directly during these hours: Tuesday to 7:30-8:30 A.M. to Tuesday 12-1:00 p.m. Primary Neurology service: [phone] Consult neurology service: [phone] Resident Stroke Service: [phone] If the patient belongs to the Stroke ASHLEE service please contact the Stroke ASHLEE directly. Cosigned by Kelley Sofia MD at 07/06/2024 11:32 PM EST Associated attestation - Kelley Sofia MD - 07/06/2024 11:32 PM EST Kelley Sofia MD Neurology documented in this encounter [facility] 07-20-2024 Hospital Discharge instructions Luiz Shipley MD - 07/20/2024 3:28 PM EST 07/30 at 12:40 Hospital follow up with Fidelina Fisher CNP [facility] [address] [place] [address] Please follow up with Neurosurgery for colitis [...] Hospital follow up with Fidelina Fisher CNP [facility] [address] [place] [address] Pt. should bring the following to appointment; [...] For NEW patients, MD will not prescribe terminal worker pain medication. The following attachments cannot be sent through Care Everywhere.Dementia Discharge Instructions (Moroccan)Time to stop driving? (Moroccan)Dementia (including Alzheimer disease) (Moroccan)documented in this encounter [facility] 07-20-2024 Plan of care note Problem: Safety [...] at the bedside 7. Instruct patient/ patient field support representative about use of safety devices 8. Include patient/ patient field support representative in decisions related to safety Outcome: Progressing Note: Evaluation of progress towards goal: Patient remains injury free at this time. Problem: Knowledge Deficit Goal: Patient/patient field support representative demonstrates understanding of disease process, treatment [...] Score of =/> 25 or indicated by [facility] Assessment Goal: Patient should be free from fall Description: Interventions: 1. [facility] to environment 2. Hourly rounds addressing the [...] non-skid footwear 11. Teach patient and patient field support representative to maintain environment for safety and [...] (cane, walker) within reach 19. Request patient field support representative bring adaptive equipment/mobility aids from home or obtain and provide as needed 20. Consult pharmacy regarding effects of med's affecting mobility, cognition, and alternatives 21. Obtain physician order for PT if risk factors associated with mobility are present 22. Obtain physician order for OT as appropriate 23. Utilize diversional activities 24. Educate patient and patient field support representative how to maintain a safe environment during visitation times (notify nurse prior to leaving bedside) 25. Consider appropriateness of medical or non-medical officer psychiatry 26. Set up voiding schedule as appropriate (every 2 hours) Outcome: Progressing Note: Evaluation of progress towards goal: Patient remains free from falls at this time. [facility] 07-20-2024 Telephone encounter Note Spoke to , Kari. Pt is currently at [facility]. Pt is being denied an admit to rehab facility. I am unable to view notes from that hospital. Suggestion given to try [facility] as [facility] does not have a TBI clinic. Family will have to work with staff at [facility]. Verbalized understanding. [facility] 07-20-2024 Miscellaneous Notes Spoke to , Kari. Pt is currently at [facility]. Pt is being denied an admit to rehab facility. I am unable to view notes from that hospital. Suggestion given to try [facility] as [facility] does not have a TBI clinic. Family will have to work with staff at [facility]. Verbalized understanding. Spoke with Dr Harmon (sp?) from [facility] regarding patient. Family is requesting transfer to a [facility] TBI center, inpatient. I advised that Dr Guerra cannot assist in this matter. Patient mailbox is full unable to leave message Patient returned your call and can be reached at: Call patient at: on cell [phone] (home) [phone] (cell) documented in this encounter [facility] 07-20-2024 Progress note Formatting of t his note might be different from the original. DISCHARGE PLANNING NOTE 07/30 at 12:40 Hospital follow up with Fidelina Fisher CNP [facility] TBI [address] [place] [address] [employer] 07-20-2024 Hospital course Narrative Images from the original note were not included. 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 Also contacted [facility], per family request. Spoke with Dr.Mary [...] outpatient workup. I also spoke with Neurosurgery QUALITY CLOTH TESTER Victorina Marcelino, and have made arrangements for [...] Follow up: Jae Lopez MD [address] [facility] [address] Schedule an appointment as soon as possible for a visit in 1 week(s) Jessica Johnson MD [address] [facility] [address] [facility] [phone] Schedule an appointment as soon as possible for a visit in 2 week(s) 07/30 at 12:40 Hospital follow up with Fidelina Fisher CNP [facility] TBI [address], [place] [id number] Please follow up with Neurosurgery for colitis [...] PM documented in this encounter [facility] 07-20-2024 Progress note Formatting of t his note might be different from the original. Confirmed with Taylor at [facility] she did receive the updated notes (neuro, PMR, PT/OT) that were faxed and uploaded to [facility]. She is almost finishing writing it up for physician review and will call us with their determination by 10am. 9:31 am Received call from Taylor at [facility]-she reviewed updated notes with medical bill processor and they remain unable to accept after our 3rd request for review. She said he is doing too well functionally, does not need OT/PT services. She said after discussion with medical bill processor their facility would be of no benefit to the patient. This information was communicated to interdisciplinary team via [employer] chat [employer] 07-20-2024 Telephone encounter Note Received transfer center request to discuss with referring physician. Briefly, this patient with baseline cognitive impairment (? Early AD) had a fall with closed head injury and behavioral changes post-fall. He is medically stable and behavior has improved. Referrals were made to multiple TBI rehab facilities and all declined. The family requests transfer to [facility] inpatient service for further cognitive evaluation and management. It sounds like the patient is appropriately managed thus far and has no ongoing inpatient care needs. Thus, hospital to hospital transfer is not likely to be beneficial. We discussed the 3 neurorehab centers in our network. Referring MD will confirm with spring encaser that referrals were sent to all 3. If the patient is discharged home or to SNF, we can potentially expedite an appointment with our PMR colleagues/TBI multidisciplinary clinic. I will alert Drs. Aguilar and Earl to the referral. Janice Mcdermott MD [facility] Work Phone: 07-20-2024 Miscellaneous Notes Received [...] our network. Referring MD will confirm with spring encaser that referrals were sent to all 3. If the patient is discharged home or to SNF, we can potentially expedite an appointment with our PMR colleagues/TBI multidisciplinary clinic. I will alert Drs. Aguilar and Earl to the referral. Janice Mcdermott MD documented in this encounter [facility] 07-20-2024 Progress note Formatting of t his note might be different from the original. DISCHARGE PLANNING NOTE Sent face sheet to [facility] for hospital transfer via secure fax to # [phone] [facility] 07-20-2024 Progress note Formatting of t his note might be different from the original. DISCHARGE PLANNING NOTE Discharge plan- awaiting responses from [facility] if they can accept. Tasked [facility] to send neuro note from yesterday to them again. Tasked [facility] to fax his face sheet to [facility] per physician request since she is calling them about a hospital to hospital transfer per families request. Leadership team aware. - NANCY PARRISH 07/20/24 8:19 AM Discussed patient and d/c planning with leadership team. Everyone in agreement with d/c today since per physician [facility] can not accept as a hospital transfer and [facility] IPR has denied as well. Physician and this justowriter operator spoke with patient, and sister that is present re: d/c today and that patient will be going home with outpatient ST and an appointment has been made for a TBI clinic for follow up. Provided IMM to and explained. Leadership aware. - NANCY PARRISH 07/20/24 11:29 AM [employer] 07-20-2024 Progress note Formatting of t his note might be different from the original. DISCHARGE PLANNING NOTE Neuro Note sent to [facility] (P# [phone] ; F# [phone]) [facility] [employer]. [facility] 07-20-2024 Plan of care note Problem: [...] at the bedside 7. Instruct patient/ patient field support representative about use of safety devices 8. Include patient/ patient field support representative in decisions related to safety Outcome: Progressing Note: Evaluation of progress towards goal: Pt remains free from injury and significant other at bedside Problem: Knowledge Deficit Goal: Patient/patient field support representative demonstrates understanding of disease process, treatment [...] Score of =/> 25 or indicated by [facility] Assessment Goal: Patient should be free from fall Description: Interventions: 1. [facility] to environment 2. Hourly rounds addressing the [...] non-skid footwear 11. Teach patient and patient field support representative to maintain environment for safety and [...] (cane, walker) within reach 19. Request patient field support representative bring adaptive equipment/mobility aids from home or obtain and provide as needed 20. Consult pharmacy regarding effects of med's affecting mobility, cognition, and alternatives 21. Obtain physician order for PT if risk factors associated with mobility are present 22. Obtain physician order for OT as appropriate 23. Utilize diversional activities 24. Educate patient and patient field support representative how to maintain a safe environment during visitation times (notify nurse prior to leaving bedside) 25. Consider appropriateness of medical or non-medical officer psychiatry 26. Set up voiding schedule as appropriate (every 2 hours) Outcome: Progressing Note: Evaluation of progress towards goal: pt remains free from falls and fall precautions are in place [facility] 07-19-2024 Progress note Formatting of t his note might be different from the original. DISCHARGE PLANNING NOTE Updates to [facility] (P# [phone] ; F# [phone]) [facility] 07-19-2024 Progress note Formatting of t his [...] therapy per MARCI Rothman Equipment: gait belt Telemetry/Cv Rn: No Oxygen Used: room air Other: fall [...] up w/mother's name; educated sister on playing [employer] songs from pt's younger years, to encourage [...] Date/Time User Outcome 07/19/24 1445 Yoanna Han-Mahoney, SPRING FORGER/L Progressing 07/17/24 1439 Yoanna Han-Mahoney, SPRING FORGER/L Progressing Problem: Bathing LB Dates: Start: 07/13/24 [...] Date/Time User Outcome 07/19/24 1445 Yoanna Han-Mahoney, SPRING FORGER/L Progressing 07/17/24 1439 Yoanna Han-Mahoney, SPRING FORGER/L Progressing Problem: Dressing LB Dates: Start: 07/13/24 [...] Date/Time User Outcome 07/19/24 1445 Yoanna Han-Mahoney, SPRING FORGER/L Progressing 07/17/24 1439 Yoanna Han-Mahoney, SPRING FORGER/L Progressing Problem: Grooming Dates: Start: 07/13/24 Disciplines: OT Goal: Patient will perform grooming Independently Dates: Start: 07/13/24 Expected End: 08/13/24 Description: Goal Description: Disciplines: OT Outcomes Date/Time User Outcome 07/17/24 1439 Yoanna Han-Mahoney, SPRING FORGER/L Progressing Problem: Standing Balance Dates: Start: 07/13/24 Disciplines: OT Goal: Improve balance to normal Dates: Start: 07/13/24 Expected End: 08/13/24 Description: Normal dynamic balance. Disciplines: OT Outcomes Date/Time User Outcome 07/19/24 1445 Yoanna Guille-Mahoney, SPRING FORGER/L Progressing 07/17/24 1439 Yoanna Guille-Mahoney, KWADWO/L Progressing Problem: Toilet Transfers Dates: Start: 07/13/24 Disciplines: OT Goal: Patient will perform toilet transfers Independently Dates: Start: 07/13/24 Expected End: 08/13/24 Description: Goal Description: Disciplines: OT Outcomes Date/Time User Outcome 07/17/24 1439 Yoanna Guille-Mahoney, SPRING FORGER/L Progressing Problem: Toileting Dates: Start: 07/13/24 Disciplines: [...] Guille-Mahoney, KWADWO/L Progressing 07/17/24 1439 Yoanna Guille-Mahoney, SPRING FORGER/L Progressing Occupational Therapy Care Plan (Resolved) There are no resolved problems. Principal Problem: Dementia with behavioral disturbance ([facility]) Active Problems: Altered mental status Status post colostomy, follow-up exam ([facility]) Cosigned by RAMONITA Dillon at 07/19/2024 3:13 PM EST Associated attestation - Veronica Gorman OTR/Jerome - 07/19/2024 3:13 PM EST I have reviewed and agree with this note and education documentation for this visit. [employer] 07-19-2024 Progress note Formatting of t his [...] therapy per MARCI Rothman Equipment: gait belt Telemetry/Cv Rn: Yes Oxygen Used: room air Other: fall [...] Goal: Patient will perform stairs/curb with Modified [place] Dates: Start: 07/13/24 Expected End: 07/27/24 Description: [...] problems. Principal Problem: Dementia with behavioral disturbance ([facility]) Active Problems: Altered mental status Status post colostomy, follow-up exam ([facility]) Cosigned by Jose Gorman PT at 07/19/2024 3:14 PM EST Associated attestation - Jose Gorman PT - 07/19/2024 3:14 PM EST I have reviewed and agree with this note and education documentation for this visit. [facility] 07-19-2024 Plan of care note Problem: [...] at the bedside 7. Instruct patient/ patient field support representative about use of safety devices 8. Include patient/ patient field support representative in decisions related to safety Outcome: Progressing Note: Evaluation of progress towards goal: Patient remains injury free at this time. Problem: Knowledge Deficit Goal: Patient/patient field support representative demonstrates understanding of disease process, treatment [...] be free from fall Description: Interventions: 1. [facility] to environment 2. Hourly rounds addressing the [...] non-skid footwear 11. Teach patient and patient field support representative to maintain environment for safety and [...] (cane, walker) within reach 19. Request patient field support representative bring adaptive equipment/mobility aids from home or obtain and provide as needed 20. Consult pharmacy regarding effects of med's affecting mobility, cognition, and alternatives 21. Obtain physician order for PT if risk factors associated with mobility are present 22. Obtain physician order for OT as appropriate 23. Utilize diversional activities 24. Educate patient and patient field support representative how to maintain a safe environment during visitation times (notify nurse prior to leaving bedside) 25. Consider appropriateness of medical or non-medical officer psychiatry 26. Set up voiding schedule as appropriate (every 2 hours) Outcome: Progressing Note: Evaluation of progress towards goal: Patient remains free from falls. [employer] 07-19-2024 Consult note Formatting of th is note is different from the original. Images from the original note were not included. [employer] Neurology General Neurology Consult Note Primary Neurology service: [phone] Patient - Estella Jeffery Age - 59 y.o. - 1965 [facility] # - [id number] Date of Admission - 07/06/2024 7:28 AM [...] with complete remission. He follows up with [facility] Neurology and had underwent a heavy [...] reflux disease) High cholesterol Perforated sigmoid colon ([facility]) Family History: Family History Problem Relation Age [...] and symmetric in all four extremities. Coordination Daaysa-nd-qwbw, rapid alternating movements and snzf-ww-krkt normal bilaterally without dysmetria. Gait Deferred. Psychiatric [...] biomarkers confirmed early onset diagnosis established in [facility] September 2022 but reportedly functional at home per family in addition to hyperlipidemia, GERD, dm 2. Patient was transferred from [facility] for higher level of care and workup [...] Neurology standpoint Elana Valerio MD PGY-1 Neurology [facility] 07/19/24 1:[address] Sofia This patient is being followed by the Neurology Resident service. Contact attending directly during these hours: Tuesday to 7:30-8:30 A.M. to Tuesday 12-1:00 p.m. Primary Neurology service: [phone] Consult neurology service: [phone] Resident Stroke Service: [phone] If the patient belongs to the Stroke [...] for: EAG Lab Results Component Value Date [id number] 07/08/2024 Neurological work up: CT head CTA head and neck MRI brain 05/07/2022 hippocampal volume loss. White matter changes. 2 D echo Assessment and recommendations Delirium superimposed on baseline cognitive impairment Presyncope likely neurocardiogenic Hypotension Early-onset Alzheimer disease confirmed with bio markers at [facility] Upon examination patient is awake, is [...] meaning can be extrapolated by contextual derivation. [employer] Work Phone: 07-19-2024 Telephone encounter Note Spoke with Dr Harmon (sp?) from [facility] regarding patient. Family is requesting transfer to a [facility] TBI center, inpatient. I advised that Dr Guerra cannot assist in this matter. [facility] 07-19-2024 Progress note Formatting of t his note might be different from the original. DISCHARGE PLANNING NOTE Updates to [facility] (P# ; F# ) [facility] 07-19-2024 Progress note Formatting of t his note is different from the original. Images from the original note were not included. DISCHARGE PLANNING NOTE Discussed patient today during rounds. Plan-TBI center VS IPR. This justowriter operator and floor Mgr spoke with patient's over the phone and his sister in his room re: d/c planning. Updated them that [facility] has denied. Offered to send referral to [facility] to see if they can accept as [...] - NANCY PARRISH 07/19/24 10:42 AM This justowriter operator and floors buffer and Dr. Shipley spoke with patient, and sister re: d/c planning. They are aware that [facility] is still reviewing referral. Asked if SNF referrals can be sent and they declined stating they would like the physician to see if she can get him transferred to [facility] as a physician to physician transfer. Updated Leadership. If neither of these hospitals can accept then patient to d/c home with since SNF has been declined. - NANCY PARRISH 07/19/24 12:14 PM This justowriter operator and floor mgr spoke with family to let them know [facility] has denied patient and that they recommend SNF for him. Tasked CN to send neuro note from today to [facility] to see if they can accept him with this updated note. Leadership aware. - NANCY PARRISH 07/19/24 3:21 PM [employer] 07-19-2024 Plan of care note Problem: Safety [...] at the bedside 7. Instruct patient/ patient field support representative about use of safety devices 8. Include patient/ patient field support representative in decisions related to safety Outcome: Progressing Note: Evaluation of progress towards goal: Problem: Knowledge Deficit Goal: Patient/patient field support representative demonstrates understanding of disease process, treatment [...] Progressing Note: Evaluation of progress towards goal: [facility] 07-19-2024 Plan of care note Problem: Safety [...] at the bedside 7. Instruct patient/ patient field support representative about use of safety devices 8. Include patient/ patient field support representative in decisions related to safety Outcome: Progressing Note: Evaluation of progress towards goal: Problem: Knowledge Deficit Goal: Patient/patient field support representative demonstrates understanding of disease process, treatment [...] Progressing Note: Evaluation of progress towards goal: [facility] 07-18-2024 Plan of care note Problem: [...] at the bedside 7. Instruct patient/ patient field support representative about use of safety devices 8. Include patient/ patient field support representative in decisions related to safety Outcome: Progressing Note: Evaluation of progress towards goal: patient is injury free at this time. Problem: Knowledge Deficit Goal: Patient/patient field support representative demonstrates understanding of disease process, treatment [...] Score of =/> 25 or indicated by [facility] Assessment Goal: Patient should be free from fall Description: Interventions: 1. [facility] to environment 2. Hourly rounds addressing the [...] non-skid footwear 11. Teach patient and patient field support representative to maintain environment for safety and [...] (cane, walker) within reach 19. Request patient field support representative bring adaptive equipment/mobility aids from home or obtain and provide as needed 20. Consult pharmacy regarding effects of med's affecting mobility, cognition, and alternatives 21. Obtain physician order for PT if risk factors associated with mobility are present 22. Obtain physician order for OT as appropriate 23. Utilize diversional activities 24. Educate patient and patient field support representative how to maintain a safe environment during visitation times (notify nurse prior to leaving bedside) 25. Consider appropriateness of medical or non-medical officer psychiatry 26. Set up voiding schedule as appropriate (every 2 hours) Outcome: Progressing Note: Evaluation of progress towards goal: Patient is free from falls at this time. [facility] [employer] 07-18-2024 Progress note Formatting of t his note might be different from the original. DISCHARGE PLANNING NOTE Referral sent to [facility] (P# [phone] ; F# [phone]) [facility] [employer] 07-18-2024 Telephone encounter Note Patient mailbox is full unable to leave message [facility] 07-18-2024 Progress note Formatting of t his note is different from the original. Images from the original note were not included. DISCHARGE PLANNING NOTE Discussed patient today during rounds. Patient's requested updates be sent to [facility]. Tasked [facility] to send. Leadership team aware as well as floor nurse. Barriers- acceptance, auth. Services Requested: Services Requested Patient expects to be discharged to:: home vs snf Patient Goals: Goals: Goals (pt-stated) Evaluation of progress towards goal: TBD-pending PT/OT eval - NANCY PARRISH 07/18/24 10:30 AM Still awaiting response from [facility] if they can accept patient. Leadership team aware. Floor mgr has spoken with family to update them. - NANCY PARRISH 07/18/24 2:50 PM [employer] [facility] 07-18-2024 Telephone encounter Note Patient returned your call and can be reached at: Call patient at: on cell [phone] (home) [phone] (cell) [facility] 07-18-2024 Telephone encounter Note -[facility] We are unable to assist in this matter. Pt last seen 04/2022 [facility] 07-18-2024 Miscellaneous Notes -[facility] We are unable to assist in this matter. Pt last seen 04/2022 Pt fell and is in [facility] and is requesting help with getting pt transferred to a traumatic eddy facility Please call pts [phone] documented in this encounter [facility] 07-17-2024 Plan of care note Problem: [...] at the bedside 7. Instruct patient/ patient field support representative about use of safety devices 8. Include patient/ patient field support representative in decisions related to safety Outcome: [...] be free from fall Description: Interventions: 1. [facility] to environment 2. Hourly rounds addressing the [...] non-skid footwear 11. Teach patient and patient field support representative to maintain environment for safety and [...] (cane, walker) within reach 19. Request patient field support representative bring adaptive equipment/mobility aids from home or obtain and provide as needed 20. Consult pharmacy regarding effects of med's affecting mobility, cognition, and alternatives 21. Obtain physician order for PT if risk factors associated with mobility are present 22. Obtain physician order for OT as appropriate 23. Utilize diversional activities 24. Educate patient and patient field support representative how to maintain a safe environment during visitation times (notify nurse prior to leaving bedside) 25. Consider appropriateness of medical or non-medical officer psychiatry 26. Set up voiding schedule as appropriate (every 2 hours) Outcome: Progressing Note: Evaluation of progress towards goal: Patient will remain free from falls. [facility] [employer] 07-17-2024 Progress note Formatting of t his note might be different from the original. DISCHARGE PLANNING NOTE Referral sent to. [facility] (P# [phone] ; F# [phone], ) [facility] [employer] 07-17-2024 Progress note Formatting of t his [...] Rothman Equipment: gait belt and chair alarm Telemetry/Cv Rn: Yes Oxygen Used: room air Other: fall [...] Goal: Patient will perform stairs/curb with Modified [place] Dates: Start: 07/13/24 Expected End: 07/27/24 Description: [...] status Status post colostomy, follow-up exam ([facility]) Cosigned by Janice Nuno, PT at 07/18/2024 7:18 AM EST Associated attestation - Janice Nuno, PT - 07/18/2024 7:18 AM EST I have reviewed and agree with this note and education documentation for this visit. [employer] 07-17-2024 Progress note Formatting of t his [...] up) Scoring Daily Activity Raw Score: 19 [facility] G Code Modifier: CK Therapy Plan [...] Rothman Equipment: gait belt and chair alarm Telemetry/Cv Rn: Yes Oxygen Used: room air Other: fall [...] Date/Time User Outcome 07/17/24 1439 Yoanna Ellsworth SPRING FORGER/L Progressing Problem: Dressing LB Dates: Start: 07/13/24 [...] Date/Time User Outcome 07/17/24 1439 Yoanna Ellsworth KWADWO/L Progressing Problem: Grooming Dates: Start: 07/13/24 Disciplines: OT Goal: Patient will perform grooming Independently Dates: Start: 07/13/24 Expected End: 08/13/24 Description: Goal Description: Disciplines: OT Outcomes Date/Time User Outcome 07/17/24 Scotty9 Yoanna Ellsworth KWADWO/L Progressing Problem: Standing Balance Dates: Start: 07/13/24 Disciplines: OT Goal: Improve balance to normal Dates: Start: 07/13/24 Expected End: 08/13/24 Description: Normal dynamic balance. Disciplines: OT Outcomes Date/Time User Outcome 07/17/24 1439 Yoanna Han-Mahoney, SPRING FORGER/L Progressing Problem: Toilet Transfers Dates: Start: 07/13/24 Disciplines: OT Goal: Patient will perform toilet transfers Independently Dates: Start: 07/13/24 Expected End: 08/13/24 Description: Goal Description: Disciplines: OT Outcomes Date/Time User Outcome 07/17/24 1439 Yoanna Rochag, SPRING FORGER/L Progressing Problem: Toileting Dates: Start: 07/13/24 Disciplines: OT Goal: Patient will perform toileting Independently Dates: Start: 07/13/24 Expected End: 08/13/24 Description: Goal Description: Disciplines: OT Outcomes Date/Time User Outcome 07/17/24 1439 Yoanna Han-Mahoney, SPRING FORGER/L Progressing Problem: Transfers Dates: Start: 07/13/24 Disciplines: OT Goal: Patient will perform transfers Independently Dates: Start: 07/13/24 Expected End: 08/13/24 Description: Goal Description: Disciplines: OT Outcomes Date/Time User Outcome 07/17/24 1439 Yoanna Han-Mahoney, SPRING FORGER/L Progressing Occupational Therapy Care Plan (Resolved) There are no resolved problems. Principal Problem: Dementia with behavioral disturbance ([facility]) Active Problems: Altered mental status Status post colostomy, follow-up exam ([facility]) Cosigned by RAMONITA Navarro at 07/17/2024 3:03 PM EST Associated attestation - Lucie Olivarez OTR/L - 07/17/2024 3:03 PM EST I have reviewed and agree with this note and education documentation for this visit. [employer] 07-17-2024 Telephone encounter Note Pt fell and is in [facility] and is requesting help with getting pt transferred to a [facility] facility Please call pts [phone] [facility] 07-17-2024 Plan of care note Problem: [...] at the bedside 7. Instruct patient/ patient field support representative about use of safety devices 8. Include patient/ patient field support representative in decisions related to safety Outcome: Progressing Note: Evaluation of progress towards goal: Patient is injury free at this time. Problem: Knowledge Deficit Goal: Patient/patient field support representative demonstrates understanding of disease process, treatment [...] Score of =/> [facility] Goal: Patient should be free from fall Description: Interventions: 1. [facility] to environment 2. Hourly rounds addressing the [...] non-skid footwear 11. Teach patient and patient field support representative to maintain environment for safety and [...] (cane, walker) within reach 19. Request patient field support representative bring adaptive equipment/mobility aids from home or obtain and provide as needed 20. Consult pharmacy regarding effects of med's affecting mobility, cognition, and alternatives 21. Obtain physician order for PT if risk factors associated with mobility are present 22. Obtain physician order for OT as appropriate 23. Utilize diversional activities 24. Educate patient and patient field support representative how to maintain a safe environment during visitation times (notify nurse prior to leaving bedside) 25. Consider appropriateness of medical or non-medical officer psychiatry 26. Set up voiding schedule as appropriate (every 2 hours) Outcome: Progressing Note: Evaluation of progress towards goal: Patient is free from falls at this time. [facility] 07-17-2024 Progress note Formatting of t his note might be different from the original. DISCHARGE PLANNING NOTE fax referral to [facility] to [phone] shannan Shah [employer] 07-17-2024 Progress note Formatting of t his note is different from the original. Images from the original note were not included. DISCHARGE PLANNING NOTE Discussed patient today during rounds. Plan- IPR/TBI center. Barriers- acceptance, auth. This justowriter operator called both reviewing facilities and left for admissions to see if they can accept. Asked them to call this justowriter operator back. Floor nurse and leadership team aware. Services Requested: Services Requested Patient expects to be discharged to:: home vs snf Patient Goals: Goals: Goals (pt-stated) Evaluation of progress towards goal: TBD-pending PT/OT eval - NANCY PARRISH 07/17/24 9:42 AM At this time we do not have an accepting TBI/IPR facility. This justowriter operator and floors buffer attempted to speak with patient's but she is not in the room. Also tried to call her but it went right to and her box is full. - NANCY PARRISH 07/17/24 1:43 PM [facility] called this justowriter operator since they don't respond in careport and they can not accept patient. This justowriter operator and floors buffer spoke with patient's and patient's sister that [...] nurse. - NANCY PARRISH 07/17/24 2:45 PM [employer] 07-17-2024 Plan of care note Problem: Safety [...] at the bedside 7. Instruct patient/ patient field support representative about use of safety devices 8. Include patient/ patient field support representative in decisions related to safety Outcome: Progressing Note: Evaluation of progress towards goal: Patient remains injury and fall free. Safety precautions in place: call light within reach, bed in lowest position, personal belongings within reach, oriented to environment, and non-slip footwear on. Problem: Knowledge Deficit Goal: Patient/patient field support representative demonstrates understanding of disease process, treatment [...] towards goal: Patient to discharge to TBI [facility], awaiting an accepting facility. Problem: Neurological [...] be free from fall Description: Interventions: 1. [facility] to environment 2. Hourly rounds addressing the [...] non-skid footwear 11. Teach patient and patient field support representative to maintain environment for safety and [...] (cane, walker) within reach 19. Request patient field support representative bring adaptive equipment/mobility aids from home or obtain and provide as needed 20. Consult pharmacy regarding effects of med's affecting mobility, cognition, and alternatives 21. Obtain physician order for PT if risk factors associated with mobility are present 22. Obtain physician order for OT as appropriate 23. Utilize diversional activities 24. Educate patient and patient field support representative how to maintain a safe environment [...] on. [facility] [employer] 07-16-2024 Progress note Formatting of t his [...] Problem: Auditory Comprehension Dates: Start: 07/12/24 Disciplines: LICENSING SERVICES CLERK Goal: LTG: Patient will comprehend communication related to basic medical and social needs and utilize compensatory strategies to maintain safety in a functional living environment Dates: Start: 07/12/24 Expected End: 08/12/24 Disciplines: LICENSING SERVICES CLERK Goal: STG: Patient will answer complex yes/no questions with 90% accuracy with minimal cueing Dates: Start: 07/12/24 Expected End: 08/12/24 Disciplines: LICENSING SERVICES CLERK Outcomes Date/Time User Outcome 07/16/24 1520 MAGALI Castellanos Progressing Goal: STG: Patient will complete 1-3 step commands with 90% accuracy with minimal cueing Dates: Start: 07/12/24 Expected End: 08/12/24 Disciplines: LICENSING SERVICES CLERK Outcomes Date/Time User Outcome 07/16/24 1520 MAGALI Castellanos Progressing Goal: STG: Patient will complete simple, phrase level auditory comprehension tasks with 90% accuracy with minimal cueing Dates: Start: 07/12/24 Expected End: 08/12/24 Disciplines: LICENSING SERVICES CLERK Problem: Cognitive Linguistic Dates: Start: 07/12/24 Disciplines: LICENSING SERVICES CLERK Goal: LTG: Patient will display functional cognitive-linguistic skills to demonstrate appropriate communication and safety within daily activities in a functional living environment Dates: Start: 07/12/24 Expected End: 08/12/24 Disciplines: LICENSING SERVICES CLERK Goal: STG: Patient will demonstrate sustained attention by maintaining focus during a task for 10 minutes with minimal assistance Dates: Start: 07/12/24 Expected End: 08/12/24 Disciplines: LICENSING SERVICES CLERK Outcomes Date/Time User Outcome 07/16/24 1520 MAGALI Castellanos Progressing Goal: STG: Patient will be appropriately oriented to person, place, time and situation with 90% accuracy with minimal cueing Dates: Start: 07/12/24 Expected End: 08/12/24 Disciplines: LICENSING SERVICES CLERK Goal: STG: Patient will recall information discussed during therapy session via retelling/answering questions with 90% accuracy with minimal cueing Dates: Start: 07/12/24 Expected End: 08/12/24 Disciplines: LICENSING SERVICES CLERK Problem: High Level Language Dates: Start: 07/12/24 Disciplines: LICENSING SERVICES CLERK Goal: LTG: Patient will demonstrate use of self-awareness, goal setting, planning, initiation, self-monitoring and problem solving during daily activities to improve safety and awareness in a functional living environment Dates: Start: 07/12/24 Expected End: 08/12/24 Disciplines: LICENSING SERVICES CLERK Goal: STG: Patient will sequence 4-6 steps to a task (verbal, written, pictures) with 90% accuracy with minimal cueing Dates: Start: 07/12/24 Expected End: 08/12/24 Disciplines: LICENSING SERVICES CLERK Goal: STG: Patient will provide 3 appropriate solutions to problems of daily living with 90% accuracy with minimal cueing Dates: Start: 07/12/24 Expected End: 08/12/24 Disciplines: LICENSING SERVICES CLERK Goal: STG: Patient will demonstrate functional problem solving and safety awareness with 90% accuracy in daily living tasks in order to increase safe interactions with environment and decrease assistance from caregivers Dates: Start: 07/12/24 Expected End: 08/12/24 Disciplines: LICENSING SERVICES CLERK Problem: Verbal Expression Dates: Start: 07/12/24 Disciplines: LICENSING SERVICES CLERK Goal: LTG: Patient will utilize compensatory strategies to communicate wants and needs effectively to different conversational partners, maintain safety and participate socially in a functional living environment Dates: Start: 07/12/24 Expected End: 08/12/24 Disciplines: LICENSING SERVICES CLERK Goal: STG: Patient will respond to simple/complex open ended questions during activities of daily living with 90% accuracy with minimal cueing Dates: Start: 07/12/24 Expected End: 08/12/24 Disciplines: LICENSING SERVICES CLERK Goal: STG: Patient will maintain topic of conversation to decrease tangential speech with 90% accuracy with minimal cueing Dates: Start: 07/12/24 Expected End: 08/12/24 Disciplines: LICENSING SERVICES CLERK Outcomes Date/Time User Outcome 07/16/24 1520 MAGALI Castellanos Progressing Speech Therapy Care Plan (Resolved) There are no resolved problems. Principal Problem: Dementia with behavioral disturbance ([facility]) Active Problems: Altered mental status Status post colostomy, follow-up exam ([facility] [employer] 07-16-2024 Progress note Formatting of t his note might be different from the original. DISCHARGE PLANNING NOTE Resent referral in [facility] to [facility] P#[phone]; F#[phone] sent via secure fax to [phone] [employer] 07-16-2024 Plan of care note Problem: Safety [...] at the bedside 7. Instruct patient/ patient field support representative about use of safety devices 8. Include patient/ patient field support representative in decisions related to safety Outcome: Progressing Note: Evaluation of progress towards goal: pain will be adequally controlled to allow for rest and adl's Problem: Knowledge Deficit Goal: Patient/patient field support representative demonstrates understanding of disease process, treatment [...] Score of =/> 25 or indicated by [facility] Assessment Goal: Patient should be free from fall Description: Interventions: 1. [facility] to environment 2. Hourly rounds addressing the [...] non-skid footwear 11. Teach patient and patient field support representative to maintain environment for safety and [...] (cane, walker) within reach 19. Request patient field support representative bring adaptive equipment/mobility aids from home or obtain and provide as needed 20. Consult pharmacy regarding effects of med's affecting mobility, cognition, and alternatives 21. Obtain physician order for PT if risk factors associated with mobility are present 22. Obtain physician order for OT as appropriate 23. Utilize diversional activities 24. Educate patient and patient field support representative how to maintain a safe environment during visitation times (notify nurse prior to leaving bedside) 25. Consider appropriateness of medical or non-medical officer psychiatry 26. Set up voiding schedule as appropriate (every 2 hours) Outcome: Progressing Note: Evaluation of progress towards goal: fall bundle [facility] [employer] 07-16-2024 Progress note Formatting of t his note might be different from the original. DISCHARGE PLANNING NOTE Clinical updates sent to Referrals sent to [facility] (P# [phone] ; F# [phone]) and to [facility] and to [facility] [employer] 07-16-2024 Progress note Formatting of t his note might be different from the original. DISCHARGE PLANNING NOTE [facility] Via secure fax to [phone]. This is theor fax per phone call to facility. P#[phone]. Provider not in Careport. [facility] 07-16-2024 Progress note Formatting of t his note might be different from the original. DISCHARGE PLANNING NOTE Discharge plan- TBD waiting to hear from TBI/IPR who can accept out of the reviewing facilities. [facility] called this justowriter operator and will call his to discuss. If they are able to accept she would owe private pay for room and board and money is due up front. Updated leadership team and floor nurse. - NANCY PARRISH 07/16/24 8:50 AM Discussed patient today during rounds. Called [facility] and left a VM for admissions to see if they can accept. Awaiting responses from the other facilities to respond. Barriers- acceptance, auth. - NANCY PARRISH 07/16/24 10:58 AM Called admissions at [facility] and [facility] and left VM asking them if they can accept and to call this justowriter operator back. Left callback #. - NANCY PARRISH 07/16/24 11:05 AM Still awaiting responses from all reviewing IPR this time. Leadership aware. Called [facility] and spoke with admissions and they will review. Also called [facility] and left another VM. Both in [place] are still reviewing at this time. - NANCY PARRISH 07/16/24 1:39 PM Spoke with patient and to update them that at this time we are awaiting responses from 3 facilities. Leadership aware. - NANCY PARRISH 07/16/24 3:45 PM [facility] 07-16-2024 Plan of care note Problem: [...] at the bedside 7. Instruct patient/ patient field support representative about use of safety devices 8. Include patient/ patient field support representative in decisions related to safety Outcome: Progressing Note: Evaluation of progress towards goal: Patient remains injury and fall free. Safety precautions in place: call light within reach, bed in lowest position, personal belongings within reach, oriented to environment, and non-slip footwear on. Problem: Knowledge Deficit Goal: Patient/patient field support representative demonstrates understanding of disease process, treatment [...] Collaborate with ancillary departments 14. Include patient/patient field support representative in decisions related to anxiety Outcome: Progressing Note: Evaluation of progress towards goal: Patient's anxiety appears to be at manageable level. Problem: Moderate - High Risk Fall Score Description: Gallegos Fall Score of =/> 25 or indicated by [facility] Assessment Goal: Patient should be free from fall Description: Interventions: 1. [facility] to environment 2. Hourly rounds addressing the [...] non-skid footwear 11. Teach patient and patient field support representative to maintain environment for safety and [...] (cane, walker) within reach 19. Request patient field support representative bring adaptive equipment/mobility aids from home or obtain and provide as needed 20. Consult pharmacy regarding effects of med's affecting mobility, cognition, and alternatives 21. Obtain physician order for PT if risk factors associated with mobility are present 22. Obtain physician order for OT as appropriate 23. Utilize diversional activities 24. Educate patient and patient field support representative how to maintain a safe environment [...] on. [facility] [employer] 07-15-2024 Plan of care note Problem: Safety [...] at the bedside 7. Instruct patient/ patient field support representative about use of safety devices 8. Include patient/ patient field support representative in decisions related to safety Outcome: [...] Score of =/> 25 or indicated by [facility] Assessment Goal: Patient should be free from fall Description: Interventions: 1. [facility] to environment 2. Hourly rounds addressing the [...] non-skid footwear 11. Teach patient and patient field support representative to maintain environment for safety and [...] (cane, walker) within reach 19. Request patient field support representative bring adaptive equipment/mobility aids from home or obtain and provide as needed 20. Consult pharmacy regarding effects of med's affecting mobility, cognition, and alternatives 21. Obtain physician order for PT if risk factors associated with mobility are present 22. Obtain physician order for OT as appropriate 23. Utilize diversional activities 24. Educate patient and patient field support representative how to maintain a safe environment during visitation times (notify nurse prior to leaving bedside) 25. Consider appropriateness of medical or non-medical officer psychiatry 26. Set up voiding schedule as appropriate (every 2 hours) Outcome: Progressing Note: Evaluation of progress towards goal: Pt is free from falls. [facility] 07-15-2024 Plan of care note [...] at the bedside 7. Instruct patient/ patient field support representative about use of safety devices 8. Include patient/ patient field support representative in decisions related to safety Outcome: Progressing Note: Evaluation of progress towards goal: Proper identifiers used with patient care and medication administration. Remains free of injury during shift Problem: Knowledge Deficit Goal: Patient/patient field support representative demonstrates understanding of disease process, treatment [...] Collaborate with ancillary departments 14. Include patient/patient field support representative in decisions related to anxiety Outcome: Progressing Note: Evaluation of progress towards goal: Patient verbalizes a tolerable anxiety level and remains free of signs and symptoms of anxiety. Will continue to explain treatment plan and monitor for changes in anxiety levels. Problem: Moderate - High Risk Fall Score Description: Gallegos Fall Score of =/> 25 or indicated by [facility] Assessment Goal: Patient should be free from fall Description: Interventions: 1. [facility] to environment 2. Hourly rounds addressing the [...] non-skid footwear 11. Teach patient and patient field support representative to maintain environment for safety and [...] (cane, walker) within reach 19. Request patient field support representative bring adaptive equipment/mobility aids from home or obtain and provide as needed 20. Consult pharmacy regarding effects of med's affecting mobility, cognition, and alternatives 21. Obtain physician order for PT if risk factors associated with mobility are present 22. Obtain physician order for OT as appropriate 23. Utilize diversional activities 24. Educate patient and patient field support representative how to maintain a safe environment during visitation times (notify nurse prior to leaving bedside) 25. Consider appropriateness of medical or non-medical officer psychiatry 26. Set up voiding schedule as appropriate (every 2 hours) Outcome: Progressing Note: Evaluation of progress towards goal: Call light within reach. Remains free of fall or injury. Environment free of clutter. [employer] 2024 Plan of care note Problem: Safety [...] at the bedside 7. Instruct patient/ patient field support representative about use of safety devices 8. Include patient/ patient field support representative in decisions related to safety Outcome: Progressing Note: Evaluation of progress towards goal: pain will be controlled to allow for rest and adl's Problem: Knowledge Deficit Goal: Patient/patient field support representative demonstrates understanding of disease process, treatment [...] Collaborate with ancillary departments 14. Include patient/patient field support representative in decisions related to anxiety Outcome: Progressing Note: Evaluation of progress towards goal: listen and reassuring Problem: Moderate - High Risk Fall Score Description: Gallegos Fall Score of =/> 25 or indicated by [facility] Assessment Goal: Patient should be free from fall Description: Interventions: 1. [facility] to environment 2. Hourly rounds addressing the [...] non-skid footwear 11. Teach patient and patient field support representative to maintain environment for safety and [...] (cane, walker) within reach 19. Request patient field support representative bring adaptive equipment/mobility aids from home or obtain and provide as needed 20. Consult pharmacy regarding effects of med's affecting mobility, cognition, and alternatives 21. Obtain physician order for PT if risk factors associated with mobility are present 22. Obtain physician order for OT as appropriate 23. Utilize diversional activities 24. Educate patient and patient field support representative how to maintain a safe environment during visitation times (notify nurse prior to leaving bedside) 25. Consider appropriateness of medical or non-medical officer psychiatry 26. Set up voiding schedule as appropriate (every 2 hours) Outcome: Progressing Note: Evaluation of progress towards goal: fallbundle [facility] [employer] 2024 Progress note Formatting of t his note might be different from the original. DISCHARGE PLANNING NOTE Referrals sent to [facility] (P# [phone] ; F# [phone]) and to [facility] and to [facility] and to [facility] p#: [phone] f#: [phone] [employer] 2024 Progress note Formatting of t his note might be different from the original. DISCHARGE PLANNING NOTE Follow-up Discharge Planning Progress Note Per RN during discharge transition rounds, barriers to discharge are: Accepting acute inpatient rehabilitation center. Discharge Plan: Junior Manufacturing Engineer followed up with patient, spouse and patient sister at bedside. Updated, [facility], not accepting, not in network with patient [...] Discussed lower levels of care such as Alf Facility and Home care. Patient spouse and sister verbalized understanding. Choices received. [facility] tasked to send referrals. Attempted to contact Jaciel Venegas, admission office closed on weekend. Care Navigation will continue to follow for any discharge needs. - Shweta Delgado RN 07/14/24 1:22 PM [employer] 07-13-2024 Plan of care note Problem: Safety [...] at the bedside 7. Instruct patient/ patient field support representative about use of safety devices 8. Include patient/ patient field support representative in decisions related to safety Outcome: Progressing Note: Evaluation of progress towards goal: Proper identifiers used with patient care and medication administration. Remains free of injury during shift Problem: Knowledge Deficit Goal: Patient/patient field support representative demonstrates understanding of disease process, treatment [...] Collaborate with ancillary departments 14. Include patient/patient field support representative in decisions related to anxiety Outcome: [...] be free from fall Description: Interventions: 1. [facility] to environment 2. Hourly rounds addressing the [...] non-skid footwear 11. Teach patient and patient field support representative to maintain environment for safety and [...] (cane, walker) within reach 19. Request patient field support representative bring adaptive equipment/mobility aids from home or obtain and provide as needed 20. Consult pharmacy regarding effects of med's affecting mobility, cognition, and alternatives 21. Obtain physician order for PT if risk factors associated with mobility are present 22. Obtain physician order for OT as appropriate 23. Utilize diversional activities 24. Educate patient and patient field support representative how to maintain a safe environment [...] injury from restraints (Restraint for Interference with Maintenance Porter) Description: INTERVENTIONS: 1. Determine that other, less [...] Free from restraint(s) (Restraint for Interference with Maintenance Porter) Description: INTERVENTIONS: 1. ONCE/SHIFT or MINIMUM Q12H: [...] safety; individualizes the safety outcome Outcome: Completed [facility] 07-13-2024 Progress note Formatting of t his note might be different from the original. Per Lesia VILLANUEVA patient's and sister were very upset that [facility] did not accept patient. They declined to offer any other choices for facilities to her at this time. Lesia encouraged them to allow her to make referrals to some TBI facilities at [facility] and in [place] but at this time they are angry that [facility] did not accept patient. Junior Manufacturing Engineer will request SW follow up with them in the morning to obtain choices to continue developing a transition of care plan. [facility] 07-13-2024 Progress note Formatting of t his note might be different from the original. DISCHARGE PLANNING NOTE Referral sent to [facility] P#[phone]; F#[phone]); [facility], a division of [facility] P# [phone] [calling report];/[facility] (P# [calling report]; F# ) [facility] 07-13-2024 Progress note Formatting of t his note might be different from the original. DISCHARGE PLANNING NOTE Per RN during discharge transition rounds, barriers to discharge are: Telesitter, PMR re-eval, Seroquel dose adjustment. Discharge Plan: IPR for TBI rehab. PT/OT recommended IPR. CN met with and sister Earlene. wants a referral sent [facility]. CN discussed discharge and making referrals to other TBI/ IPR rehabs in the state, and sister stated they are putting all their zak in [facility] being able to accept the patient. [facility] [facility] will continue to follow for any discharge needs. - Lesia Caba RN 07/13/24 12:18 PM Addendum: [facility] is not in network with patients [employer]. gave CN two more choices : [facility] IPR and [facility] rehab. [facility] tasked to send referrals. and sister are calling insurance to ask about a one time contract to [facility]. Ethel , [facility] rep, stopped in to talk to and sister. - Lesia Caba RN 07/13/24 2:10 PM Addendum: Patient's and sister asked CN to listen and talk to insurance attorney regarding a one time approval for the IPR: [facility]. Credit Card Specialist Xiomy with [employer] stated attending or managing physician needs to document patient's health status and progression, information on why the patient needs to go this specific facility for rehab, include diagnosis codes and services codes. Fax: Prior Auth Request to [phone] attn: Prior Auth Request at [employer]. CN sent pic chat to Dr. Nichol [...] - Lesia Caba RN 07/13/24 3:51 PM [employer] 07-13-2024 Progress note Formatting of t his note might be different from the original. DISCHARGE PLANNING NOTE Referral to [facility] (P# ; F# ) [employer] 07-13-2024 Progress note Formatting of t his [...] reflux disease) High cholesterol Perforated sigmoid colon ([facility]) Past Surgical History: Procedure Laterality Date ARM EXPLORATION WITH REPAIR LACERATED ULNAR ARTERY Left 11/24/2019 Performed by Skyler Bowen MD at [facility] 3YEARS AGO COLOSTOMY CLOSURE Therapy Plan Need [...] early mobility guidelines. Equipment: gait belt, telemetry Telemetry/Cv Rn: Yes Oxygen Used: room air Other: fall [...] and pants. Patient was able to static smoking tobacco packing machine hand front of toilet with contact guard. Patient was unable to void due to trouble with processing, safety and judgement. Home Management - IADL Other: patient has trouble executing tasks. patient was able to ambulate into bathroom with contact guard. patient required min assist to doff underware and pants. Patient was able to static smoking tobacco packing machine hand front of toilet with contact guard. Patient [...] problems. Principal Problem: Dementia with behavioral disturbance ([facility]) Active Problems: Altered mental status Status post colostomy, follow-up exam ([facility]) [facility] [employer] 07-13-2024 Progress note Formatting of t his [...] 6 Clicks: Basic Mobility Raw Score: 20 [facility] G Code Modifier: CJ Therapy Plan Need for skilled Physical Therapy to address deficits in functional mobility due to a status decline resulting from admission 07/06 as a transfer from [facility] for neurological work up. Patient diagnosed with early onset dementia 2022, per spouse report after skilled nursing and med changes cognitive status had improved and stabilized prior to fall in May 2024. 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 Pt discharged to inpatient treatment facility and returned to [facility] for scheduled MRI. 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 Principal Problem: Dementia with behavioral disturbance ([facility]) Active Problems: Altered mental status Status post colostomy, follow-up exam ([facility]) [facility] 07-12-2024 Plan of care note [...] at the bedside 7. Instruct patient/ patient field support representative about use of safety devices 8. Include patient/ patient field support representative in decisions related to safety Outcome: Progressing Note: Evaluation of progress towards goal: Patient remains injury and fall free. Safety precautions in place: call light within reach, bed in lowest position, personal belongings within reach, oriented to environment, and non-slip footwear on. Problem: Knowledge Deficit Goal: Patient/patient field support representative demonstrates understanding of disease process, treatment [...] Collaborate with ancillary departments 14. Include patient/patient field support representative in decisions related to anxiety Outcome: Progressing Note: Evaluation of progress towards goal: Patient's has at bedside to help with spells of anxiety. Problem: Moderate - High Risk Fall Score Description: Gallegos Fall Score of =/> 25 or indicated by [facility] Assessment Goal: Patient should be free from fall Description: Interventions: 1. [facility] to environment 2. Hourly rounds addressing the [...] non-skid footwear 11. Teach patient and patient field support representative to maintain environment for safety and [...] (cane, walker) within reach 19. Request patient field support representative bring adaptive equipment/mobility aids from home or obtain and provide as needed 20. Consult pharmacy regarding effects of med's affecting mobility, cognition, and alternatives 21. Obtain physician order for PT if risk factors associated with mobility are present 22. Obtain physician order for OT as appropriate 23. Utilize diversional activities 24. Educate patient and patient field support representative how to maintain a safe environment [...] injury from restraints (Restraint for Interference with Maintenance Porter) Description: INTERVENTIONS: 1. Determine that other, less [...] Free from restraint(s) (Restraint for Interference with Maintenance Porter) Description: INTERVENTIONS: 1. ONCE/SHIFT or MINIMUM Q12H: [...] nutrition and hydration, hygiene, ROM, elimination needs [facility] [employer] 07-12-2024 Progress note Formatting of t his note might be different from the original. DISCHARGE PLANNING NOTE Per RN during discharge transition rounds, barriers to discharge are: PMR consult today, 2 point restraints, telesitter Discharge Plan: TBD. PMR is requesting PT/OT notes. Will wait for therapy input. not available this afternoon. CN escalated this case to CN leadership. [facility] will continue to follow for any discharge needs. - Lesia Caba RN 07/12/24 3:24 PM [facility] [employer] 01-23-2025 Plan of care note Problem: Safety Goal: [...] at the bedside 7. Instruct patient/ patient field support representative about use of safety devices 8. Include patient/ patient field support representative in decisions related to safety Outcome: Progressing Note: Evaluation of progress towards goal: Patient remains injury free at present time. Safe environment provided and maintained. Medications administered using 5 rights. Problem: Knowledge Deficit Goal: Patient/patient field support representative demonstrates understanding of disease process, treatment [...] Collaborate with ancillary departments 14. Include patient/patient field support representative in decisions related to anxiety Outcome: Progressing Note: Evaluation of progress towards goal: Patient has family at bedside assisting with anxiety. Problem: Safety - Medical Restraint Goal: Remains free of injury from restraints (Restraint for Interference with Maintenance Porter) Description: INTERVENTIONS: 1. Determine that other, less [...] Free from restraint(s) (Restraint for Interference with Maintenance Porter) Description: INTERVENTIONS: 1. ONCE/SHIFT or MINIMUM Q12H: [...] assess q2 restraints, qshift assessed for necessity. [facility] [employer] 07-12-2024 Progress note Formatting of t his [...] continue to follow along. Prognosis Services: Skilled LICENSING SERVICES CLERK services to address the above deficits Prognosis/Potential: [...] Plan Speech Therapy Care Plan (Active) Template: [facility] Rehab Speech Problem: Auditory Comprehension Dates: Start: 07/12/24 Disciplines: LICENSING SERVICES CLERK Goal: LTG: Patient will comprehend communication related to basic medical and social needs and utilize compensatory strategies to maintain safety in a functional living environment Dates: Start: 07/12/24 Expected End: 08/12/24 Disciplines: LICENSING SERVICES CLERK Goal: STG: Patient will answer complex yes/no questions with 90% accuracy with minimal cueing Dates: Start: 07/12/24 Expected End: 08/12/24 Disciplines: LICENSING SERVICES CLERK Goal: STG: Patient will complete 1-3 step commands with 90% accuracy with minimal cueing Dates: Start: 07/12/24 Expected End: 08/12/24 Disciplines: LICENSING SERVICES CLERK Goal: STG: Patient will complete simple, phrase level auditory comprehension tasks with 90% accuracy with minimal cueing Dates: Start: 07/12/24 Expected End: 08/12/24 Disciplines: LICENSING SERVICES CLERK Problem: Cognitive Linguistic Dates: Start: 07/12/24 Disciplines: LICENSING SERVICES CLERK Goal: LTG: Patient will display functional cognitive-linguistic skills to demonstrate appropriate communication and safety within daily activities in a functional living environment Dates: Start: 07/12/24 Expected End: 08/12/24 Disciplines: LICENSING SERVICES CLERK Goal: STG: Patient will demonstrate sustained attention by maintaining focus during a task for 10 minutes with minimal assistance Dates: Start: 07/12/24 Expected End: 08/12/24 Disciplines: LICENSING SERVICES CLERK Goal: STG: Patient will be appropriately oriented to person, place, time and situation with 90% accuracy with minimal cueing Dates: Start: 07/12/24 Expected End: 08/12/24 Disciplines: LICENSING SERVICES CLERK Goal: STG: Patient will recall information discussed during therapy session via retelling/answering questions with 90% accuracy with minimal cueing Dates: Start: 07/12/24 Expected End: 08/12/24 Disciplines: LICENSING SERVICES CLERK Problem: High Level Language Dates: Start: 07/12/24 Disciplines: LICENSING SERVICES CLERK Goal: LTG: Patient will demonstrate use of self-awareness, goal setting, planning, initiation, self-monitoring and problem solving during daily activities to improve safety and awareness in a functional living environment Dates: Start: 07/12/24 Expected End: 08/12/24 Disciplines: LICENSING SERVICES CLERK Goal: STG: Patient will sequence 4-6 steps to a task (verbal, written, pictures) with 90% accuracy with minimal cueing Dates: Start: 07/12/24 Expected End: 08/12/24 Disciplines: LICENSING SERVICES CLERK Goal: STG: Patient will provide 3 appropriate solutions to problems of daily living with 90% accuracy with minimal cueing Dates: Start: 07/12/24 Expected End: 08/12/24 Disciplines: LICENSING SERVICES CLERK Goal: STG: Patient will demonstrate functional problem solving and safety awareness with 90% accuracy in daily living tasks in order to increase safe interactions with environment and decrease assistance from caregivers Dates: Start: 07/12/24 Expected End: 08/12/24 Disciplines: LICENSING SERVICES CLERK Problem: Verbal Expression Dates: Start: 07/12/24 Disciplines: LICENSING SERVICES CLERK Goal: LTG: Patient will utilize compensatory strategies to communicate wants and needs effectively to different conversational partners, maintain safety and participate socially in a functional living environment Dates: Start: 07/12/24 Expected End: 08/12/24 Disciplines: LICENSING SERVICES CLERK Goal: STG: Patient will respond to simple/complex open ended questions during activities of daily living with 90% accuracy with minimal cueing Dates: Start: 07/12/24 Expected End: 08/12/24 Disciplines: LICENSING SERVICES CLERK Goal: STG: Patient will maintain topic of conversation to decrease tangential speech with 90% accuracy with minimal cueing Dates: Start: 07/12/24 Expected End: 08/12/24 Disciplines: LICENSING SERVICES CLERK Speech Therapy Care Plan (Resolved) There are no resolved problems. Principal Problem: Dementia with behavioral disturbance ([facility]) Active Problems: Altered mental status Status post colostomy, follow-up exam ([facility]) [facility] 07-12-2024 Miscellaneous Notes Patient's sister, Earlene (not on HIPAA), called in asking to speak with Dr Price regarding patient's admission at [facility]. Patient had a tele consult with Dr Price on 07/03/24. Earlene would like to discuss some concerns that she has with Dr Price and possibly set up a hospital follow up. She is asking for a call back to further discuss [phone] CALLED AND SPOKE TO EARLENE TO LET HER KNOW THAT NOTHING CAN BE DISCUSSED WITH HER DUE TO HER NOT BEING ON PATIENTS HIPAA. EARLENE UNDERSTOOD Patient's spouse [phone] stated that they would like a call back to discuss [facility] stay. Called and spoke to patients and told her Dr Price seen Estella on a consultation on 07/03/24 and is no longer under his care. Dr Price consulted because he was relays draftsperson and that the patient is still in [...] her insurance company. documented in this encounter [employer] 07-12-2024 Telephone encounter Note Patient's sister, Earlene (not on HIPAA), called in asking to speak with Dr Price regarding patient's admission at [facility]. Patient had a tele consult with Dr Price on 07/03/24. Earlene would like to discuss some concerns that she has with Dr Price and possibly set up a hospital follow up. She is asking for a call back to further discuss [phone] [employer] 07-12-2024 Telephone encounter Note CALLED AND SPOKE TO EARLENE TO LET HER KNOW THAT NOTHING CAN BE DISCUSSED WITH HER DUE TO HER NOT BEING ON PATIENTS HIPAA. EARLENE UNDERSTOOD [employer] 07-12-2024 Telephone encounter Note Patient's spouse [phone] stated that they would like a call back to discuss [facility] stay. [facility] 07-12-2024 Telephone encounter Note Called and spoke to patients and told her Dr Price seen Estella on a consultation on 07/03/24 and is no longer under his care. Dr Price consulted because he was relays draftsperson and that the patient is still in [...] the care team and her [facility] company. [facility] 07-12-[facility]24 Consult note Associated Order (s): IP CONSULT TO PHYSICAL MEDICINE REHAB Images from the original note were not included. PHYSICAL MEDICINE AND REHABILITATION CONSULT Date of Admission: 07/06/2024 7:28 AM Referring Physician: Nichol Heath MD PCP: JAE LOPEZ MD Chief Compliant: Principal Problem: Dementia with behavioral disturbance ([facility]) Active Problems: Altered mental status Status post colostomy, follow-up exam ([facility]) Reason for Consultation: Rehabilitation Candidacy and Rehab Ticketing Agent Physicians/Services Consulting Providers Provider Service Specialty Mina [...] disease) High cholesterol Perforated sigmoid colon ([facility]) [facility] Past Surgical History: Procedure Laterality Date ARM EXPLORATION WITH REPAIR LACERATED ULNAR ARTERY Left 11/24/2019 Performed by Skyler Bowen MD at [facility] 3YEARS AGO COLOSTOMY CLOSURE Allergies Allergies Allergen [...] Cytology Collection Time: 07/10/24 9:39 AM Narrative [facility] [address] [place] [address] Cytology Consultation Patient Name:ESTELLA JEFFERY:1965 (Age: 58)Gender:MTaken:07/10/2024Report ed:07/11/2024 16:49Physician(s):Arnulfo Haley M.D. ([phone])Copy To:Quinton Harrell M.D. Rec. #:[id number]: #[id number] Final Cytologic Diagnosis Cerebrospinal fluid: No malignant cells identified. gr07/11/2024 Interpretation performed [place] [address], License number: [id number].Electronically Signed Out By Derick Lorenz MD Additional Report(s): Flow Cytometry-Surg/BM/NG Date Reported: # Immunophenotyping antibodies tested: CD3, CD4, CD5, CD7, CD8, CD19, CD20, CD45, [place], and Lambda. Immunophenotyping Comment: Immunophenotyping has been used in this diagnostic evaluation. This test was developed and its performance characteristics determined by the [facility] Department. It has not been [...] qualified to perform high-complexity clinical testing. Riaz Forchetti, MD Clinical History Dementia with behavioral disturbance ([facility]) F03.918, acute change in personality Gross Description Received was 2ml of clear colorless fluid unfixed labeled as Jeffery, CSF . Also received is one cytospin slide from Hematology. Source of Specimen Cerebrospinal fluid Non MANAGER OF SUSTAINABILITY ThinPrep, Cytospin Slide Fee Code(s): 1; 24729 VDRL, Spinal Fluid Collection Time: 07/10/24 9:39 [...] Principal Problem: Dementia with behavioral disturbance ([facility]) Active Problems: Altered mental status Status post colostomy, follow-up exam ([facility]) Acute mental status change patient also was [...] you for the referral. Nito Mirza MD [employer] Work Phone: 07-12-2024 Plan of care note Problem: Safety - Medical Restraint Goal: Remains free of injury from restraints (Restraint for Interference with Maintenance Porter) Description: INTERVENTIONS: 1. Determine that other, less [...] Free from restraint(s) (Restraint for Interference with Maintenance Porter) Description: INTERVENTIONS: 1. ONCE/SHIFT or MINIMUM Q12H: [...] nutrition and hydration, hygiene, ROM, elimination needs [employer] 07-12-2024 Progress note Formatting of t his note might be different from the original. BEHAVIORAL RESTRAINTS PROVIDER ONE HOUR VLRU-GC-RLET EVALUATION NOTE Estella Jeffery was evaluated on [...] and others. Jackson Peterson PA-C 07/12/24 0058 [employer] Work Phone: 07-11-2024 Plan of care note [...] at the bedside 7. Instruct patient/ patient field support representative about use of safety devices 8. Include patient/ patient field support representative in decisions related to safety Outcome: Progressing Note: Evaluation of progress towards goal: Patient remains injury and fall free. Safety precautions in place: call light within reach, bed in lowest position, personal belongings within reach, oriented to environment, and non-slip footwear on. Problem: Knowledge Deficit Goal: Patient/patient field support representative demonstrates understanding of disease process, treatment [...] Collaborate with ancillary departments 14. Include patient/patient field support representative in decisions related to anxiety Outcome: Progressing Note: Evaluation of progress towards goal: Patient has at bedside aiding in assisting with anxiety. Problem: Moderate - High Risk Fall Score Description: Gallegos Fall Score of =/> 25 or indicated by [facility] Assessment Goal: Patient should be free from fall Description: Interventions: 1. [facility] to environment 2. Hourly rounds addressing the [...] non-skid footwear 11. Teach patient and patient field support representative to maintain environment for safety and [...] (cane, walker) within reach 19. Request patient field support representative bring adaptive equipment/mobility aids from home or obtain and provide as needed 20. Consult pharmacy regarding effects of med's affecting mobility, cognition, and alternatives 21. Obtain physician order for PT if risk factors associated with mobility are present 22. Obtain physician order for OT as appropriate 23. Utilize diversional activities 24. Educate patient and patient field support representative how to maintain a safe environment [...] oriented to environment, and non-slip footwear on. [facility] 07-11[facility]24 Consult note Associated Order (s): IP CONSULT TO PSYCHIATRY PSYCHIATRIC EVALUATION No contraindications for seclusion No contraindications for restraint CHIEF COMPLAINT: Dementia with behavioral disturbance ([facility]) Estella Jeffery is a 58 y.o. male who presents with Dementia with behavioral disturbance ([facility]) .he is HISTORY OF PRESENT ILLNESS: The patient is a 58-year-old Prydeinig male treatment at the [facility] for the patient has a substantial history of dyslipidemia, sleep apnea, type 2 diabetes mellitus, recent diagnosed history of early-onset Alzheimer's dementia, an epileptic disorder in remission, as well as a recent admission to [facility] for altered mental status. An MRI of [...] reflux disease) High cholesterol Perforated sigmoid colon ([facility]) has a past medical history of GERD (gastroesophageal reflux disease), High cholesterol, and Perforated sigmoid colon ([facility]). Past Surgical History: Procedure Laterality Date ARM EXPLORATION WITH REPAIR LACERATED ULNAR ARTERY Left 11/24/2019 Performed by Skyler Bowen MD at [facility] 3YEARS AGO COLOSTOMY CLOSURE Medications Prior to [...] diversion. Mina Franks MD 07/11/2024 1:11 PM [employer] 07-11-2024 Progress note Formatting of t his note might be different from the original. DISCHARGE PLANNING NOTE Per RN during discharge transition rounds, barriers to discharge are: re-consulting psych today, telesitter and soft restraints, MRI and LP completed yesterday, patient behaviors are worse at night, unpredictable and confused. Discharge Plan: [facility] psych stated [facility] healthcare was sent a referral and they have declined. Waiting input from psych. Drying [employer] Changer will continue to follow for any discharge needs. - Lesia Caba RN 07/11/24 12:06 PM Late entery: KAY met with patient, Kari, and sister Earlene on Tuesday afternoon. and sister want the patient to go to a Traumatic Brain Injury rehab unit. CN began researching TBI Rehab units in the area, reported back to the and sister after finding TBI rehab units in [facility]. Sister asked for me to look in [facility]. and sister do not want any referrals send until they are able to meet with the neurologist again, sister wants to look into the TBI units in the [facility] herself before any referrals are sent. - Lesia Caba RN 07/12/24 8:11 AM [employer] 07-11-2024 Progress note Formatting of t his note might be different from the original. Referral sent to [facility] to assess [place] [facility]. After a clinical review and screening was completed [facility] assessed patient as inappropriate for treatment at that facility. Will alert care team. - NANCY Martines 07/11/24 10:33 AM [facility] 07-11-2024 Progress note Formatting of t his note might be different from the original. DISCHARGE PLANNING NOTE Updates to [facility] [phone] [facility] 07-11-2024 Plan of care note [...] at the bedside 7. Instruct patient/ patient field support representative about use of safety devices 8. Include patient/ patient field support representative in decisions related to safety Outcome: Progressing Note: Evaluation of progress towards goal: Patient remains injury free at present time. Safe environment provided and maintained. Medications administered using 5 rights. Problem: Knowledge Deficit Goal: Patient/patient field support representative demonstrates understanding of disease process, treatment [...] Collaborate with ancillary departments 14. Include patient/patient field support representative in decisions related to anxiety Outcome: Progressing Note: Evaluation of progress towards goal: Patient has at bedside assisting with anxiety. Problem: Moderate - High Risk Fall Score Description: [place] Fall Score of =/> 25 or indicated by [facility] Assessment Goal: Patient should be free from fall Description: Interventions: 1. [facility] to environment 2. Hourly rounds addressing the [...] non-skid footwear 11. Teach patient and patient field support representative to maintain environment for safety and [...] (cane, walker) within reach 19. Request patient field support representative bring adaptive equipment/mobility aids from home or obtain and provide as needed 20. Consult pharmacy regarding effects of med's affecting mobility, cognition, and alternatives 21. Obtain physician order for PT if risk factors associated with mobility are present 22. Obtain physician order for OT as appropriate 23. Utilize diversional activities 24. Educate patient and patient field support representative how to maintain a safe environment during visitation times (notify nurse prior to leaving bedside) 25. Consider appropriateness of medical or non-medical officer psychiatry 26. Set up voiding schedule as appropriate (every 2 hours) Outcome: Progressing Note: Evaluation of progress towards goal: Patient currently free from falls, up standby. [employer] 07-11-2024 Plan of care note Problem: Safety [...] injury from restraints (Restraint for Interference with Maintenance Porter) Description: INTERVENTIONS: 1. Determine that other, less [...] Free from restraint(s) (Restraint for Interference with Maintenance Porter) Description: INTERVENTIONS: 1. ONCE/SHIFT or MINIMUM Q12H: [...] nutrition and hydration, hygiene, ROM, elimination needs [employer] 07-10-2024 Progress note Formatting of t his note might be different from the original. BEHAVIORAL RESTRAINTS PROVIDER ONE HOUR [id number] EVALUATION NOTE Estella Prabha Hahnza was evaluated on 07/10/2024 at 2350. Called [...] and others. Jackson Peterson PA-C 07/11/24 0036 [facility] 07-10-2024 Plan of care note [...] at the bedside 7. Instruct patient/ patient field support representative about use of safety devices 8. Include patient/ patient field support representative in decisions related to safety Outcome: [...] hygiene technique. 7. Identify and instruct patient/patient field support representative in use of appropriate isolation precautions for identified infection/symptoms. 8. Provide and discuss with patient/patient field support representative on educational MDRO sheet. 9. Encourage and monitor nutritional status daily and consult dairy manager if indicated. 10. Implement neutropenic guidelines as needed. Outcome: Progressing Note: Evaluation of progress towards goal: Patient remains free of any signs of infection. Signs and symptoms being monitor such as fevers, chills, warm/red areas. Problem: Knowledge Deficit Goal: Patient/patient field support representative demonstrates understanding of disease process, treatment [...] Collaborate with ancillary departments 14. Include patient/patient field support representative in decisions related to anxiety Outcome: Progressing Note: Evaluation of progress towards goal: Patient's anxiety is at manageable level. Problem: Safety - Medical Restraint Goal: Remains free of injury from restraints (Restraint for Interference with Maintenance Porter) Description: INTERVENTIONS: 1. Determine that other, less [...] Free from restraint(s) (Restraint for Interference with Maintenance Porter) Description: INTERVENTIONS: 1. ONCE/SHIFT or MINIMUM Q12H: [...] on patient's door 9. Provide patient/ patient field support representative with isolation education. Outcome: Progressing Note: Evaluation of progress towards goal: Discard single-use items. Clean reusable equipment. Wear gloves for direct and indirect patient care. Wash hands before and after care of patient. Problem: Moderate - High Risk Fall Score Description: [place] Fall Score of =/> 25 or indicated by [facility] Assessment Goal: Patient should be free from fall Description: Interventions: 1. [facility] to environment 2. Hourly rounds addressing the [...] non-skid footwear 11. Teach patient and patient field support representative to maintain environment for safety and [...] (cane, walker) within reach 19. Request patient field support representative bring adaptive equipment/mobility aids from home or obtain and provide as needed 20. Consult pharmacy regarding effects of med's affecting mobility, cognition, and alternatives 21. Obtain physician order for PT if risk factors associated with mobility are present 22. Obtain physician order for OT as appropriate 23. Utilize diversional activities 24. Educate patient and patient field support representative how to maintain a safe environment [...] on. [facility] [employer] 07-10-2024 Plan of care note Problem: Safety [...] at the bedside 7. Instruct patient/ patient field support representative about use of safety devices 8. Include patient/ patient field support representative in decisions related to safety Outcome: [...] hygiene technique. 7. Identify and instruct patient/patient field support representative in use of appropriate isolation precautions for identified infection/symptoms. 8. Provide and discuss with patient/patient field support representative on educational MDRO sheet. 9. Encourage and monitor nutritional status daily and consult dairy manager if indicated. 10. Implement neutropenic guidelines as needed. Outcome: Progressing Note: Evaluation of progress towards goal: patient remains afebrile at this time Problem: Knowledge Deficit Goal: Patient/patient field support representative demonstrates understanding of disease process, treatment [...] Collaborate with ancillary departments 14. Include patient/patient field support representative in decisions related to anxiety Outcome: Progressing Note: Evaluation of progress towards goal: discussed w/ patient coping strategies & dietary changes that may aid in controlling stress & anxiety. Problem: Safety - Medical Restraint Goal: Remains free of injury from restraints (Restraint for Interference with Maintenance Porter) Description: INTERVENTIONS: 1. Determine that other, less [...] Free from restraint(s) (Restraint for Interference with Maintenance Porter) Description: INTERVENTIONS: 1. ONCE/SHIFT or MINIMUM Q12H: [...] on patient's door 9. Provide patient/ patient field support representative with isolation education. Outcome: Progressing Note: Evaluation of progress towards goal: patient remains afebrile at this time Problem: Moderate - High Risk Fall Score Description: [place] Fall Score of =/> 25 or indicated by [facility] Assessment Goal: Patient should be free from fall Description: Interventions: 1. [facility] to environment 2. Hourly rounds addressing the [...] non-skid footwear 11. Teach patient and patient field support representative to maintain environment for safety and [...] (cane, walker) within reach 19. Request patient field support representative bring adaptive equipment/mobility aids from home or obtain and provide as needed 20. Consult pharmacy regarding effects of med's affecting mobility, cognition, and alternatives 21. Obtain physician order for PT if risk factors associated with mobility are present 22. Obtain physician order for OT as appropriate 23. Utilize diversional activities 24. Educate patient and patient field support representative how to maintain a safe environment during visitation times (notify nurse prior to leaving bedside) 25. Consider appropriateness of medical or non-medical officer psychiatry 26. Set up voiding schedule as appropriate (every 2 hours) Outcome: Progressing Note: Evaluation of progress towards goal: patient remains free of injury & verbalizes understanding of fall prevention; call light in reach [facility] 07-10-2024 Progress note Formatting of t his note might be different from the original. DISCHARGE PLANNING NOTE Per RN during discharge transition rounds, barriers to discharge are: MRI with sedation today, LP with sedation today, restraints removed after procedures today, assess as needed for restraints, re-consult psych. Discharge Plan: TBD. CN discussed case with colin Solorio SW Drying Rack Changer will continue to follow for any discharge needs. - Lesia Caba RN 07/10/24 3:16 PM [facility] 07-10-2024 Plan of care note 07/10/24 1145: Evaluated patient after his procedures, he is calm at this time and currently not threat to himself or staff therefore we will discontinue violent restraints. He is though pulling at his lines and IV so will place bilateral soft wrist restraints. We will re-evaluate as needed Nichol Heath MD [facility] 07-10-2024 Nurse Note Patient still off unit at this time 11:58 s/p sedated MRI & LP procedure. Per neurologist, Dr Johnson, patient needs to remain flat 1-2hrs & may have regular diet. Junior Manufacturing Engineer awaiting patient return to unit & per report 1:1 sitter remains at patient bedside. [facility] 07-10-2024 Procedure note Associated Ord [...] to verify the correct patient, procedure, equipment, field support representative and site/side marked as required. Anesthesia: local infiltration Anesthesia: Local Anesthetic: lidocaine 1% without epinephrine Sedation: Patient sedated: yes Lumbar space: L3-L4 interspace Patient's position: left lateral decubitus Opening pressure: 12 cm H2O Fluid appearance: clear Tubes of fluid: 4 Total volume: 17.5 ml Post-procedure: pressure dressing applied and adhesive bandage applied Procedure was completed Complications: none Arnulfo Haley MD PGY2 Neurology [facility] Cosigned by Zach Nails MD at 07/11/2024 12:41 AM EST Associated attestation - Zach Nails MD - 07/11/2024 12:41 AM EST Zach Nails MD [employer] Dept of Neurology [facility] 07-10-2024 Procedure note Associated Ord er(s): Lumbar [...] to verify the correct patient, procedure, equipment, field support representative and site/side marked as required. Anesthesia: local infiltration Anesthesia: Local Anesthetic: lidocaine 1% without epinephrine Sedation: Patient sedated: yes Lumbar space: L3-L4 interspace Patient's position: left lateral decubitus Opening pressure: 12 cm H2O Fluid appearance: clear Tubes of fluid: 4 Total volume: 17.5 ml Post-procedure: pressure dressing applied and adhesive bandage applied Procedure was completed Complications: none Arnulfo Haley MD PGY2 Neurology [facility] Cosigned by Zach Nails MD at 07/11/2024 12:41 AM EST Associated attestation - Zach Nails MD - 07/11/2024 12:41 AM EST Zach Nails MD [employer] Dept of Neurology [facility] documented in this encounter [facility] 07-10-2024 Nurse Note SPECIMENS X4 WERE COLLECTED, PROCESSED, AND SENT TO LAB BY DR. ARNULFO HALEY. [facility] 07-10-2024 Plan of care note Problem: [...] at the bedside 7. Instruct patient/ patient field support representative about use of safety devices 8. Include patient/ patient field support representative in decisions related to safety Outcome: [...] hygiene technique. 7. Identify and instruct patient/patient field support representative in use of appropriate isolation precautions for identified infection/symptoms. 8. Provide and discuss with patient/patient field support representative on educational MDRO sheet. 9. Encourage and monitor nutritional status daily and consult dairy manager if indicated. 10. Implement neutropenic guidelines as needed. Outcome: Progressing Note: Evaluation of progress towards goal: Skin integrity remains in stable condition; remains w/o ss of infection, fever, pain, or increased discomfort. Problem: Knowledge Deficit Goal: Patient/patient field support representative demonstrates understanding of disease process, treatment [...] of 0 - 24 or indicated by [facility] Assessment Goal: Patient should be free from fall Description: Interventions: 1. [facility] to environment 2. Hourly rounds addressing the [...] non-skid footwear 11. Teach patient and patient field support representative to maintain environment for safety and [...] Collaborate with ancillary departments 14. Include patient/patient field support representative in decisions related to anxiety Outcome: [...] on patient's door 9. Provide patient/ patient field support representative with isolation education. Outcome: Progressing Note: Evaluation of progress towards goal: Skin integrity remains in stable condition; remains w/o ss of infection, fever, pain, or increased discomfort. Problem: Moderate - High Risk Fall Score Description: Gal[place] Fall Score of =/> 25 or indicated by [facility] Assessment Goal: Patient should be free from fall Description: Interventions: 1. [facility] to environment 2. Hourly rounds addressing the [...] non-skid footwear 11. Teach patient and patient field support representative to maintain environment for safety and [...] (cane, walker) within reach 19. Request patient field support representative bring adaptive equipment/mobility aids from home or obtain and provide as needed 20. Consult pharmacy regarding effects of med's affecting mobility, cognition, and alternatives 21. Obtain physician order for PT if risk factors associated with mobility are present 22. Obtain physician order for OT as appropriate 23. Utilize diversional activities 24. Educate patient and patient field support representative how to maintain a safe environment during visitation times (notify nurse prior to leaving bedside) 25. Consider appropriateness of medical or non-medical officer psychiatry 26. Set up voiding schedule as appropriate (every 2 hours) Outcome: Progressing Note: Evaluation of progress towards goal: Call light within reach. Remains free of fall or injury. Environment free of clutter. [facility] Progress note Formatting of t his note might be different from the original. BEHAVIORAL RESTRAINTS PROVIDER ONE HOUR [id number] EVALUATION NOTE Estella Jeffery was evaluated on [...] 07/10/24 0522 Jackson Peterson PA-C 07/10/24 0523 [employer] 07-09-2024 Plan of care note Problem: Safety [...] at the bedside 7. Instruct patient/ patient field support representative about use of safety devices 8. Include patient/ patient field support representative in decisions related to safety Outcome: [...] hygiene technique. 7. Identify and instruct patient/patient field support representative in use of appropriate isolation precautions for identified infection/symptoms. 8. Provide and discuss with patient/patient field support representative on educational MDRO sheet. 9. Encourage and monitor nutritional status daily and consult dairy manager if indicated. 10. Implement neutropenic guidelines as needed. Outcome: Progressing Note: Evaluation of progress towards goal: patient remains afebrile at this time Problem: Knowledge Deficit Goal: Patient/patient field support representative demonstrates understanding of disease process, treatment [...] of 0 - 24 or indicated by [facility] Assessment Goal: Patient should be free from fall Description: Interventions: 1. [facility] to environment 2. Hourly rounds addressing the [...] non-skid footwear 11. Teach patient and patient field support representative to maintain environment for safety and [...] Collaborate with ancillary departments 14. Include patient/patient field support representative in decisions related to anxiety Outcome: [...] injury from restraints (Restraint for Interference with Maintenance Porter) Description: INTERVENTIONS: 1. Determine that other, less [...] Free from restraint(s) (Restraint for Interference with Maintenance Porter) Description: INTERVENTIONS: 1. ONCE/SHIFT or MINIMUM Q12H: [...] on patient's door 9. Provide patient/ patient field support representative with isolation education. Outcome: Progressing Note: Evaluation of progress towards goal: patient remains afebrile at this time [facility] [employer] [facility] 07-09-20[facility] Progress note Formatting of t his note might be different from the original. DISCHARGE PLANNING NOTE Clinical updates including sent to. [facility] (P# [phone] ; F# [phone]) via efax [facility] 07-09-2024 Progress note Formatting of t [...] . Thank you, Ethel Bueno RN, PRADEEP [email or web address] The patient's Clinical Indicators include: As above CDI RESPONSE TEXT: Patient has progression of dementia causing agitation, no evidence of metabolic or toxic encephalopathy. Query created by: Ethel Bueno on 07/09/2024 5:42 AM Electronically signed by: Lonnie Baker MD 07/09/2024 3:22 PM [facility] 07-09-2024 Progress note Formatting of t his note might be different from the original. DISCHARGE PLANNING NOTE Referral sent to [facility]. (P# [phone] ; F# [phone]) via efax [facility] 07-09-2024 Progress note Formatting of t [...] patient to return home. Psych SW following. Drying Rack Changer will continue to follow for any discharge needs. - Lesia Caba RN 07/09/24 1:11 PM [facility] 07-08-2024 Plan of care note [...] at the bedside 7. Instruct patient/ patient field support representative about use of safety devices 8. Include patient/ patient field support representative in decisions related to safety Outcome: [...] hygiene technique. 7. Identify and instruct patient/patient field support representative in use of appropriate isolation precautions for identified infection/symptoms. 8. Provide and discuss with patient/patient field support representative on educational MDRO sheet. 9. Encourage and monitor nutritional status daily and consult dairy manager if indicated. 10. Implement neutropenic guidelines as needed. Outcome: Progressing Note: Evaluation of progress towards goal: monitor s/s of infection Problem: Knowledge Deficit Goal: Patient/patient field support representative demonstrates understanding of disease process, treatment [...] of 0 - 24 or indicated by [facility] Assessment Goal: Patient should be free from fall Description: Interventions: 1. [facility] to environment 2. Hourly rounds addressing the [...] non-skid footwear 11. Teach patient and patient field support representative to maintain environment for safety and [...] Collaborate with ancillary departments 14. Include patient/patient field support representative in decisions related to anxiety Outcome: [...] injury from restraints (Restraint for Interference with Maintenance Porter) Description: INTERVENTIONS: 1. Determine that other, less [...] Free from restraint(s) (Restraint for Interference with Maintenance Porter) Description: INTERVENTIONS: 1. ONCE/SHIFT or MINIMUM Q12H: [...] goal: fall precautions in place, hourly rounding [facility] 07-08-2024 Progress note Formatting of t his note might be different from the original. BEHAVIORAL RESTRAINTS PROVIDER ONE HOUR [id number] EVALUATION NOTE Estella Jeffery was evaluated on [...] restraint/seclusion order: No Jackson Peterson PA-C 07/08/24 1107 07/09/24-3:31 AM Called to bedside after patient woke [...] and others. Jackson Peterson PA-C 07/09/24 0344 [employer] 07-08-2024 Progress note Formatting of t his note might be different from the original. [facility] NIGHT BEHAVIORAL RESTRAINTS PROVIDER ONE HOUR [id number] EVALUATION NOTE Estella Jeffery was evaluated on [...] and others. Jackson Peterson PA-C 07/08/24 0446 [employer] 07-08-2024 Plan of care note Problem: Safety [...] at the bedside 7. Instruct patient/ patient field support representative about use of safety devices 8. Include patient/ patient field support representative in decisions related to safety Outcome: [...] hygiene technique. 7. Identify and instruct patient/patient field support representative in use of appropriate isolation precautions for identified infection/symptoms. 8. Provide and discuss with patient/patient field support representative on educational MDRO sheet. 9. Encourage and monitor nutritional status daily and consult dairy manager if indicated. 10. Implement neutropenic guidelines as needed. Outcome: Progressing Note: Evaluation of progress towards goal: Patient has no infection at this time. Problem: Knowledge Deficit Goal: Patient/patient field support representative demonstrates understanding of disease process, treatment [...] of 0 - 24 or indicated by [facility] Assessment Goal: Patient should be free from fall Description: Interventions: 1. [facility] to environment 2. Hourly rounds addressing the [...] non-skid footwear 11. Teach patient and patient field support representative to maintain environment for safety and [...] Collaborate with ancillary departments 14. Include patient/patient field support representative in decisions related to anxiety Outcome: Progressing Note: Evaluation of progress towards goal: Patient is able to manage anxiety level at this time, plan of care still ongoing. [facility] 07-07-2024 Plan of care note [...] at the bedside 7. Instruct patient/ patient field support representative about use of safety devices 8. Include patient/ patient field support representative in decisions related to safety Outcome: [...] hygiene technique. 7. Identify and instruct patient/patient field support representative in use of appropriate isolation precautions for identified infection/symptoms. 8. Provide and discuss with patient/patient field support representative on educational MDRO sheet. 9. Encourage and monitor nutritional status daily and consult dairy manager if indicated. 10. Implement neutropenic guidelines as needed. Outcome: Progressing Note: Evaluation of progress towards goal: monitor s/s of infection, monitor labs, standard precautions Problem: Knowledge Deficit Goal: Patient/patient field support representative demonstrates understanding of disease process, treatment [...] of 0 - 24 or indicated by [facility] Assessment Goal: Patient should be free from fall Description: Interventions: 1. [facility] to environment 2. Hourly rounds addressing the [...] non-skid footwear 11. Teach patient and patient field support representative to maintain environment for safety and engage in all aspects of fall prevention program Outcome: Progressing Note: Evaluation of progress towards goal: fall precautions in place, hourly rounding, call light within reach [facility] 07-07-2024 Progress note Formatting of t his [...] by: Elana Valerio MD 07/07/2024 7:10 AM [facility] 07-06-2024 Plan of care note [...] at the bedside 7. Instruct patient/ patient field support representative about use of safety devices 8. Include patient/ patient field support representative in decisions related to safety Outcome: [...] hygiene technique. 7. Identify and instruct patient/patient field support representative in use of appropriate isolation precautions for identified infection/symptoms. 8. Provide and discuss with patient/patient field support representative on educational MDRO sheet. 9. Encourage and monitor nutritional status daily and consult dairy manager if indicated. 10. Implement neutropenic guidelines as needed. Outcome: Progressing Note: Evaluation of progress towards goal: Patient remains free of any signs of infection. Signs and symptoms being monitor such as fevers, chills, warm/red areas. Problem: Knowledge Deficit Goal: Patient/patient field support representative demonstrates understanding of disease process, treatment [...] of 0 - 24 or indicated by [facility] Assessment Goal: Patient should be free from fall Description: Interventions: 1. [facility] to environment 2. Hourly rounds addressing the [...] non-skid footwear 11. Teach patient and patient field support representative to maintain environment for safety and [...] Description: INTERVENTIONS: 1. Encourage patient or legal field support representative to report early pain and ask [...] per policy 9. Teach patient or legal field support representative interventions for comforting Outcome: Completed Note: Evaluation of progress towards goal: Patient has no complaints of pain. Reassessed per policy. [facility] 07-06-2024 Progress note Formatting of t his note might be different from the original. An attempt was made to interview the patient today in the presence of his . The patient refused and asked the justowriter operator to leave stating that he does not want a psychiatric evaluation. Psychiatry will sign off. [employer] Work Phone: 07-06-2024 Progress note Formatting of t his note is different from the original. Images from the original note were not included. DISCHARGE PLANNING NOTE Junior Manufacturing Engineer met with patient, introduced self, and explained role. Patient educated on safe discharge plan. Pt admitted 07/06/2024 with Dementia with behavioral disturbance ([facility]) [F03.918] At risk for long QT syndrome [Z91.89] Altered mental status [R41.82] per chart review. Consults: Neurology and Psychiatry Discharge Barriers per Daily Transition Rounds and chart review: Psych and neuro to see, will need EEG, MRI, CT brain. Past Medical History: Diagnosis Date GERD (gastroesophageal reflux disease) High cholesterol Perforated sigmoid colon ([facility]) Prior to admission patient was living with spouse/significant other and self care. Medical equipment patient used prior to admission includes: CPAP. Patient spouse denies need for transportation/ food/ prescription medication assistance resources. PCP: JAE LOPEZ MD Pharmacy:[facility] PCP and pharmacy confirmed with patient. [...] - Jac Austin RN 07/06/24 4:01 PM [employer] 07-06-2024 Progress note Formatting of t his note might be different from the original. Called spouse and left message. Will await call back. - NANCY Martines 07/06/24 3:25 PM [employer] 07-06-2024 Progress note Formatting of t his [...] spouse. - NANCY Martines 07/06/24 11:02 AM BOTH [facility] [employer] 07-06-2024 Consult note Associated Order (s): IP CONSULT TO NEUROLOGY Images from the original note were not included. [facility] Neurology General Neurology Consult Note Primary Neurology service: [phone] Chief Complaint: HPI: Estella Jeffery is a [...] with complete remission. He follows up with [facility] Neurology and had underwent a heavy [...] decline, Patient had presented to ED in [place] June 18 after waking up not oriented and delusional. Then June 25 he woke up again not knowing where he is delusional thinking his sister was an intruder so he was brought to [facility] and discharged later that evening. He was seen by social worker clinical referred to a mental health center and per family his mental status had worsened and they felt he was being overmedicated with Benadryl. 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 The impression there was no infectious or metabolic etiology so patient was transferred to [facility] for higher level of care. On my evaluation patient was restless fidgeting and did not allow me to speak him or enter the room, he would tell me his family members names what refused to tell me his name asked me to leave the room. I could not do any assessment [place] test or neurological exam. Per family patient had not received his morning medication. History: Past Medical History/Surgical History: Active Ambulatory Problems Diagnosis Date Noted Laceration of left ulnar artery 11/24/2019 Resolved Ambulatory Problems Diagnosis Date Noted No Resolved Ambulatory Problems Past Medical History: Diagnosis Date GERD (gastroesophageal reflux disease) High cholesterol Perforated sigmoid colon ([facility]) Family History: Family History Problem Relation Age [...] markers confirmed early onset Alzheimer's established in [facility] October 2022 in addition to hyperlipidemia, GERD, dm 2. Patient was transferred found [facility] for higher level of care and workup of sharp decline in cognition since May 2024. Patient had presented multiple times to the ED and admitted [facility] for delusional thinking/hallucinations/agitatio n. On evaluation patient [...] once reconciled. Elana Valerio MD PGY-1 Neurology [facility] 07/06/24 9:[address] Sofia This patient is being followed by the Neurology Resident service. Contact attending directly during these hours: Tuesday to 7:30-8:30 A.M. to Tuesday 12-1:00 p.m. Primary Neurology service: [phone] Consult neurology service: [phone] Resident Stroke Service: [phone] If the patient belongs to the Stroke ASHLEE service please contact the Stroke ASHLEE directly. Cosigned by Kelley Sofia MD at 07/06/2024 11:32 PM EST Associated attestation - Kelley Sofia MD - 07/06/2024 11:32 PM EST Kelley Sofia MD Neurology [facility] 07-06-2024 History and physical note Images from the original note were not included. [facility] Physicians Hospitalists History and Physical 07/06/2024 Patient Name: Estella Jeffery : 1965 Assessment Rapid onset Dementia with behavioral disturbances Colloid cyst stable on MRI per report History of hallucinations GERD Hypercholesterolemia History of perforated sigmoid colon status post surgical repair Plan Continue Seroquel and Aricept P.r.n. [place] Attempt to obtain EKG to assess QT [...] dementia, GERD, perforated colon who presents to [facility] as a transfer from [place] for neurologic evaluation. History obtained from sister [...] 11/24/2019 Performed by Skyler Bowen MD at [facility] 3YEARS AGO COLOSTOMY CLOSURE Allergy: Diphenhydramine Prior to Admission medications Medication Sig Start Date End Date Taking? Authorizing Provider aspirin 81 mg Take 1 tablet (81 mg total) by mouth daily. Patient not taking: Reported on 05/06/2020 11/26/19 FRAN Dhaliwal FREESTYLE 28 gauge lancets 09/07/18 Not In [...] in full via EMR. Nichol Heath [facility] History and physical note Images from the original note were not included. [facility] Hospitalists History and Physical 07/06/2024 [...] dementia, GERD, perforated colon who presents to [facility] as a transfer from [place] for neurologic evaluation. History obtained from sister [...] reflux disease) High cholesterol Perforated sigmoid colon ([facility]) Past Surgical History: Procedure Laterality Date ARM EXPLORATION WITH REPAIR LACERATED ULNAR ARTERY Left 11/24/2019 Performed by Skyler Bowen MD at [facility] 3YEARS AGO COLOSTOMY CLOSURE Allergy: Diphenhydramine Prior [...] MD documented in this encounter [facility] 06-26-2024 Note Progress Note-Nurse Attempted to call office due to family requesting additional lab work (PSA level). There was no answer at the office and no option to leave voicemail. Intrusted family to call later on today to talk to Dr. Graham's stick roller about obtained PSA level [facility] 03-09-2024 Telephone encounter Note I have refilled your prescription. A review of your chart shows that you have not had a follow up visit in more than 1 year. Refills for medications require at least 1 follow up visit per year. Please call: to schedule an appointment. Lisandra Gomez APRN.LEATHER COVERER [facility] 03-09-2024 Miscellaneous Notes I have refilled your prescription. A review of your chart shows that you have not had a follow up visit in more than 1 year. Refills for medications require at least 1 follow up visit per year. Please call: to schedule an appointment. Lisandra Gomez APRN.CNP documented in this encounter [facility] 01-11-2024 Hospital Discharge instructions Patient Education [...] treatment? Where to find more information The [place] [employer] Society: www.cancer.org P[place] Urological Association: www.auanet.org Contact a health care [...] provider. Document Revised: 11/30/2021 Document Reviewed: 11/30/2021 [employer] Patient Education 2022 [employer]. Follow Up Care 12/23/2023 09:42:08 With:Santos PEÑA, Danni Portillo, URL, URO Address: When: Unknown Comments:Pending MRI, may proceed with fusion bx [facility] 01-11-2024 Note Urology Office/Clini c [...] repair with mesh. -Will schedule MRI @ [facility] STAT. -Will schedule MRI fusion transperineal prostate biopsy under MAC Follow-up With When Contact Information Santos PEÑA, Danni Portillo, URL, URO Additional Instructions: Pending MRI, may proceed with fusion bx Patient Education Prostate Cancer Screening I, Kiarra Brice, personally scribed for Dr. Graham on 01/11/2024 10:41:32. . Documentation recorded by the scribKiarra triplett , accurately reflects the services(s) I performed [...] Biopsy of pro (more content not included)... [facility] Comment on above: Result Comment: Elec [...] Where to find more information ? The [place] Cancer Society: www.cancer.org ? P[place] Urological Association: www.auanet.org Contact a health care [...] of the rectum. (more content not included)... [facility] 12-06-2023 Telephone encounter Note The following approved medication requests have been transmitted electronically. Requested Prescriptions Signed Prescriptions Disp Refills donepezil (ARICEPT) 5 mg tablet 90 tablet 0 Sig: Take 1 tablet by mouth once daily. Authorizing Provider: AGUSTINA PLASCENCIA Ordering User: TANISHA JEFFERS APRN.CNP [facility] 12-06-2023 Miscellaneous Notes The following approved medication requests have been transmitted electronically. Requested Prescriptions Signed Prescriptions Disp Refills donepezil (ARICEPT) 5 mg tablet 90 tablet 0 Sig: Take 1 tablet by mouth once daily. Authorizing Provider: AGUSTINA PLASCENCIA Ordering User: TANISHA JEFFERS APRN.CNP documented in this encounter [facility] 03-07-2023 Miscellaneous Notes Summary: [facility] Baseline Interest A voicemail was left about participation in [facility] research study. documented in this encounter [facility] 02-09-2023 Miscellaneous Notes Axxanat message sent documented in this encounter [facility] 02-08-2023 Miscellaneous Notes Summary: [facility] Potential Participant A call was made to of patient to talk about interest in participating in [facility]. expressed interest in participating. The [facility] consent document was sent through email. A call will be made in a week to discuss enrollment. documented in this encounter [facility] 02-04-2023 Miscellaneous Notes Images from the original note were not included. documented in this encounter [facility] 02-02-2023 Miscellaneous Notes The following approved medication requests have been transmitted electronically. Requested Prescriptions Signed Prescriptions Disp Refills donepezil (ARICEPT) 5 mg tablet 90 tablet 1 Sig: TAKE 1 TABLET BY MOUTH EVERY DAY Authorizing Provider: AGUSTINA PLASCENCIA Ordering User: KIMO PATE APRN.CNP documented in this encounter [facility] 01-13-2023 Miscellaneous Notes Patient returned call, requested a call back. I left a message explaining the 4% requirement from Medicare, and advised to contact Medicare if they have insurance questions. Advised to call me back if they had other concerns or questions. Sonal Weinstein APRN.EFRAIN documented in this encounter [facility] 12-03-2022 Miscellaneous Notes Faxed order, office notes, demographics, and sleep study to: DME name: [facility] DME fax: [phone] Barcoding ph: documented in this encounter [facility] 12-02-2022 History of Present illness Narrative Images from the original note were not included. [facility] Follow up/ Established [...] his apnea hypopnea and arousal indexes. At 12/ his apnea-hypopnea index was in the mild [...] will have a prescription sent to a Barcoding (durable medical equipment) company - [employer] who will be calling you in the next 1-2 weeks or so. Please call them directly or us if you do not hear from them in this time frame. - You should be eligible for new supplies approximately every 3-6 months, depending on your insurance coverage. - If your mask doesn't fit well, call the Barcoding company before 30 days are up to get a new mask without an additional charge. - Insurance requires regular usage and periodic office follow ups for PAP therapy, to continue to cover supplies. - Follow up in 2 months in the office. Recommend scheduling this appointment now to ensure the best time for you. Roosevelt Merlos PGY-4 Sleep fellow [facility] I have supervised and discussed the patient case with the Sleep Medicine Fellow including interviewing the patient in person and have updated the electronic medical record where necessary. I agree with the history, physical, impression and recommendations as documented. Gera Cardona DO, CBSM, ABSM Clinical Staff Sleep Medicine [facility] Neurological [place] [facility] [address] Mail [address] [place] [address] I have communicated my name and active licensure. The patient's identity and physical location were verified at the time of this visit. Either the patient or their legal field support representative has been informed of the risks and benefits of -- and alternatives to -- treatment through a remote evaluation and consents to proceed with the evaluation remotely. Interval history : Here for follow up for SHELBY follow up after starting PAP therapy. ; SLEEP APNEA Sleep apnea type : SHELBY, Most Recent Apnea-Hypopnea Index (AHI): 47.7 Treatment : PAP therapy DME: [employer] PAP History: Uses Bilevel PAP for 2 [...] or near accidents due to drowsy drivin [place] Sleepiness Scale 04/28/2022 Score Incomplete PROMIS CAT [...] which included preparing to see the patient, xxsr-js-irog patient care, completing clinical documentation, obtaining and/or reviewing separately obtained history, counseling and educating the patient/family/caregiver, ordering medications, tests, or procedures, and communicating results to the patient/family/caregiver. documented in this encounter [facility] 11-17-2022 Instructions Agustina Plascencia MD - [...] our recommendations: - Cognitive therapy at [facility]. - Aricept 5 mg daily with breakfast - Namenda 5 twice a day with breakfast and dinner. - Maintain physically, socially and cognitively healthy lifestyle. - Schedule in person report in February 2023. Please schedule next visit with Agustina Plascencia MD, PhD or Kimo Pate NP in person in February -March 2023 To schedule testing and visits please call: [phone]. If you have new, unexpected concerns in between visits please call our office at [phone] ( you will be able to reach one of our nurses). [facility] fax [phone] Ways to keep your brain healthy: Follow [...] fish and fish high in mercury (swordfish, [place] sea martinez, orange roughy, ahi tuna, [...] per week. Contact: Local: ; Toll free: [phone] Family Caregiver [place] (web site: Caregiver.org) [employer]-- a secure online solution for quality information, support, and resources for family caregivers. Contact: Toll-free number: [phone] Alzheimers.gov - Find Alzheimer disease and related dementias information, resources, research and more. documented in this encounter [facility] 11-17-2022 History of Present illness Narrative Images from the original note were not included. Estella Jeffery [address] [place] [id number] November 17, 2022 [facility] Report Virtual Virtual visit with Patient and family members Chief complaint: poor memory, forgetfulness I have communicated my name and active licensure. The patient's identity and physical location were verified at the time of this visit. Either the patient or their legal field support representative has been informed of the risks [...] that time. 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 Bradycardia. PLAN: - [facility] referral - Cognitive therapy at [facility]. - Aricept 5 mg daily with breakfast [...] . Agustina Plascencia MD, PhD Geriatric Psychiatry [facility] Brain Health CC: 1. No primary care provider on file., (fax) None documented in this encounter [facility] 10-12-2022 Nurse Note [facility] LUMBAR PUNCTURE NURSE DISCHARGE NOTE The [...] Tanisha Jeffers RN documented in this encounter [facility] 10-12-2022 Instructions Miguelito Chicas APRN.EFRAIN - 10/12/2022 10:31 AM EDT Images from the original note were not included. [facility] Neurological [place] GOING HOME INSTRUCTIONS POST LP HEADACHE Prevention [...] as coffee or tea You can take bzuo-lhn-gyojlbg Tylenol and/or Ibuprofen as directed INFECTION PREVENTION [...] from 8-5pm, please contact our office line [phone] and then hit 0 , please ask our administrative manager to page the provider who performed the spinal tap. -For nights or weekends, call or toll free and ask the cinder dump crane operator the page the Neurology resident on-call. 2. If your headache is unusually severe regardless of bedrest or lasts more than two days 3. If you develop a fever 4. If you notice inflammation, pus formation or clear drainage from the site of the needle puncture You may resume your usual activities after 48 hours. documented in this encounter [facility] 10-12-2022 History of Present illness Narrative [facility] BRAIN [facility] PROCEDURE FOR DIAGNOSTIC TESTING Estella Jeffery, [id number] October 12, 2022, 8:57 AM INFORMED CONSENT The risks, benefits and anticipated outcomes of the procedure, the risks and benefits of the alternatives to the procedure and the roles and tasks of the personnel to be involved were discussed with the patient, who consents to the procedure and agrees to proceed. I verify that I personally obtained Estella Jeffery's consent, Miguelito Chicas APRN.LEATHER COVERER UNIVERSAL PROTOCOL / SAFETY CHECKLIST Procedure to [...] HR 56 Procedure: Performed by: Miguelito Chicas APRN.LEATHER COVERER Asst: Tanisha jeffers RN / Ana Escalera RN Relevant documentation, images, implants or special equipment present: N/A Patient positioned: left lateral decubitus Prepped and draped under aseptic conditions. Procedural site marked, verified by: Miguelito Chicas APRN.LEATHER COVERER Site: L4-5 AUDIBLE TIME OUT: 1045 EST, [...] BP 117/74 Pulse (!) 58 Miguelito Chicas APRN.LEATHER COVERER October 12, 2022 documented in this encounter [facility] 08-12-2022 History of Present illness Narrative [...] Abs Lymph 1.00 - 4.00 k/uL 1.45 [place]% % 6.2 Abs [place] <0.87 k/uL 0.31 Eosin% % 0.6 Abs Eosin <0.46 k/uL 0.03 Baso% % 0.8 Abs Baso <0.11 k/uL 0.04 Immature Gran % % 0.2 IMMATURE GRANS (ABS) <0.10 k/uL <0.03 NRBC /100 WBC 0.0 Absolute nRBC <0.01 k/uL <0.01 [employer]TYPE [employer] Care Coordination Interventions: none Leah Mckeon RN documented in this encounter [facility] 08-11-2022 Instructions Agustina Plascencia MD - [...] To schedule testing and visits please call: [phone]. If you have new, unexpected concerns in between visits please call our office at [phone] ( you will be able to reach one of our nurses). [facility] fax [phone] Ways to keep your brain healthy: Follow [...] fish and fish high in mercury (swordfish, [place] sea martinez, orange roughy, ahi tuna, [...] per week. Contact: Local: ; Toll free: [phone] Family Caregiver [place] (web site: Caregiver.org) [employer]LE[employer] Hawkins-- a secure online solution for quality information, support, and resources for family caregivers. Contact: Toll-free number: [phone] Alzheimers.gov - Find Alzheimer disease and related dementias information, resources, research and more. documented in this encounter [facility] 08-11-2022 History of Present illness Narrative Images from the original note were not included. Estella Jeffery 1965 [address] [facility] [id number] August 11, 2022 Time: 2:35 PM [facility] OUTPATIENT VISIT TYPE New [...] that time. 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 He recalls forgetting a clip/tie for his gun one day. He also failed firearm safety training which is required every months. He states he is still able to perform ADLs at home and still able to work in his other job with [employer]. 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 Agustina Plascencia MD, PhD Geriatric Psychiatry [facility] Brain Health CC: 1. No primary care provider on file., (fax) None documented in this encounter [facility] 07-22-2022 History of Present illness Narrative No show. Connection aborted after 15 min. of waiting online KGR documented in this encounter [facility] 05-07-2022 Miscellaneous Notes Radiology Service Progress [...] DATA: Not applicable SIGNED BY: Nicole Huffman trademark affixer May 07, 2022 1:31 PM documented in this encounter [facility] 04-30-2022 Instructions Roosevelt Merlos MD - [...] will have a prescription sent to a Barcoding (Bee Shield medical equipment) company - [employer] who will be calling you in the next 1-2 weeks or so. Please call them directly or us if you do not hear from them in this time frame. - You should be eligible for new supplies approximately every 3-6 months, depending on your insurance coverage. - If your mask doesn't fit well, call the Barcoding company before 30 days are up to get a new mask without an additional charge. - Insurance requires regular usage and periodic office follow ups for PAP therapy, to continue to cover supplies. - Follow up in 2 months in the office. Recommend scheduling this appointment now to ensure the best time for you. [facility] Requirements - Your insurance requires a qkts-pe-pdem follow up visit within a 31-90 day [...] for BiPAP supplies. documented in this encounter [facility] 04-30-2022 History of Present illness Narrative Images from the original note were not included. [facility] New Patient Evaluation PATIENT NAME: Estella Jeffery DATE OF SERVICE: April 30, 2022 CONSULTING PROVIDER: Narciso Guerra [address] [facility] [address] REASON FOR CONSULT: Narciso Guerra sends the patient for an opinion about SHELBY. My findings and recommendations will be transmitted electronically via shared medical record to the consulting provider. HPI: Estlela Jeffery is a 56 year old male [...] or near accidents due to drowsy drivin [place] Sleepiness Scale 04/28/2022 Score Incomplete PROMIS CAT [...] will have a prescription sent to a [employer] medical [employer]) company - [employer] who will be calling you in the next 1-2 weeks or so. Please call them directly or us if you do not hear from them in this time frame. - You should be eligible for new supplies approximately every 3-6 months, depending on your insurance coverage. - If your mask doesn't fit well, call the [employer] company before 30 days are up to get a new mask without an additional charge. - Insurance requires regular usage and periodic office follow ups for PAP therapy, to continue to cover supplies. - Follow up in 2 months in the office. Recommend scheduling this appointment now to ensure the best time for you. Roosevelt Merlos PGY-4 Sleep fellow [facility] I have supervised and discussed the patient case with the Sleep Medicine Fellow including interviewing the patient in person and have updated the electronic medical record where necessary. I agree with the history, physical, impression and recommendations as documented. Gera Cardona DO, CBSM, ABSM Clinical Staff Sleep Medicine [facility] [place] [facility] [address] [place] [address] documented in this encounter [facility] 04-26-2022 History of Present illness Narrative [...] with their ordering provider regarding test results [employer] April 25, 2022 Standing PSG Orders signed in the last 90 days None Future PSG Orders signed in the last 90 days Ordered Auth. provider POLYSOMNOGRAM (PSG) [[id number]] 04/22/22 Narciso Guerra MD Assoc. diagnoses: Cognitive [...] 8:46 PM 04/25/2022 documented in this encounter [facility] 04-22-2022 History of Present illness Narrative [facility] [place] AUDIOLOGIC EVALUATION REPORT Name: Estella Jeffery CCF#: [id number] Date of Service: 04/22/2022 Date of : 1965 Age: [age] year old Referred by: Narciso Guerra [address] [facility] [address] Referred for: Evaluation of the cause of disorder of hearing, tinnitus, or balance. Referral documented: In an order in [facility] Patient's major complaints: Estella reported he [...] evaluation of middle ear function. CPT code: 45016 RIGHT EAR: Tympanogram that was flat, with no identifiable peak and reduced TM mobility consistent with a conductive pathology (wax). LEFT EAR: Normal ME pressure and TM compliance (mobility). ACOUSTIC REFLEXES Description of procedure: This test is an objective measure of auditory and facial nerve pathways. CPT code: 15619, 02806 RIGHT EAR PROBE EAR: (ipsi right stimulus [...] bone conduction and speech recognition testing. CPT code:79046 RIGHT EAR: Hearing Sensitivity: Did not test. Word Recognition Score: Did not test. LEFT EAR: Hearing Sensitivity: Did not test. Word Recognition Score: Did not test. RECOMMENDATIONS Medical follow up for removal of bilateral impacted cerumen. Patient will see [facility] today. Hearing Test after #1. Juana Horta, ARIE/A Clinical [employer] JIMENEZ Abbrev- iation Definition Degree of hearing sensitivity dB range WNL within normal limits WNL 0 - 20 SNHL sensorineural hearing loss Mild 20-40 CHL conductive hearing loss Moderate 40-55 MHL mixed hearing loss Moderately-Severe 55-70 WRS word recognition score Severe 70-90 ME middle ear Profound 90 + TM tympanic membrane documented in this encounter [facility] 04-22-2022 History of Present illness Narrative This note was created using [employer]. Subjective Estella Jeffery is a 56 year [...] externa of left ear, unspecified type Plan: xpqrwtqe-gpgtusoun-uzumrmjygdnnp e (CORTISPORIN) 3.5-10,000-1 mg/mL-unit/mL-% otic suspension Use as directed Follow up with PCP if symptoms worsen or do not improve Brenda Blanco APRN.EFRAIN April 22, 2022 documented in this encounter [facility] 04-22-2022 Instructions Brenda Blanco APRN.EFRAIN - [...] made for swimming. documented in this encounter [facility] 07-27-2020 Note MR#: [id number] [facility] Pt. Name: Estella Jeffery Admitted: 07/24/2020 [...] Naya Izaguirre M.D. 07/28/2020 10:06 A ____ Naay Izaguirre M.D. I personally saw this patient on the day of the encounter, performed the jimenez portion(s) of the service and participated in the management and confirm the resident's documentation. Please note there may be an additional personal documentation from me. Date Dict: 07/26/2020/03:37 P/Ayanna Ga MD Date Trans: 07/27/2020 03:32 A/patricia [id number] cc: Jae Lopez M.D. [address] [id number] [facility] 07-24-2020 Note MR#: [id number] I [facility] Pt. Name: Estella Jeffery Admitted: 07/21/2020 Discharged: [...] Ga MD Date Trans: 07/24/2020 10:00 A/patricia [id number] cc: Jae Lopez M.D. [address] [phone] [facility] Evaluation + Plan note No data available for this section [facility] Evaluation + Plan note Future Appointments Appointment Date:06/26/2024 12:00:00 PM Scheduled Provider: Location:[facility] Appointment Type:Surgery FT Appointment Date:07/11/2024 11:15:00 AM Scheduled Provider:Danni Graham MD Location:[facility] Appointment Type:URO Office Visit [facility] Evaluation + Plan note Future Appointments Appointment Date:07/11/2024 11:15:00 AM Scheduled Provider:Danni Graham MD Location:[facility] Appointment Type:URO Office Visit [facility] Evaluation note Diagnosis Bilateral impacted cerumen- Primary Impacted cerumen Elevated blood pressure reading without diagnosis of hypertension Acute otitis externa of left ear, unspecified type documented in this encounter [facility] note* Diagnosis Bilateral impacted cerumen- Primary Impacted cerumen [facility] Diagnosis Sleep apnea, unspecified type- Primary Sleep hypopnea Other sleep disturbances [facility] Diagnosis SHELBY (obstructive sleep apnea)- Primary Obstructive sleep apnea (adult) (pediatric) [facility] Diagnosis Memory loss [facility] Diagnosis Memory loss- Primary [facility] Diagnosis Memory loss- Primary Encounter for lumbar puncture [facility]* Diagnosis Alzheimer's disease (HCC)- Primary Alzheimer's disease [facility] Diagnosis Obstructive sleep apnea- Primary Obstructive sleep apnea (adult) (pediatric) Primary central sleep apnea Hyperlipidemia, unspecified hyperlipidemia type [facility]* Diagnosis Alzheimer's disease (HCC)- Primary Alzheimer's disease [facility]* Diagnosis Research study patient- Primary documented [facility] this encounter [facility]* Diagnosis Cognitive changes Other signs and symptoms involving cognition [facility]* Diagnosis Alzheimer's disease (HCC) Alzheimer's disease documented in this encounter [facility]* Diagnosis Alzheimer's disease (HCC) Alzheimer's disease [facility] noteNo assessment information availableCherrington [facility] Work Phone: Evaluation note* Diagnosis Dementia with behavioral disturbance (CMS-HCC)- Primary Dementia with behavioral disturbance (CMS-HCC) Status post colostomy, follow-up exam ([facility]-HCC) Follow-up examination, following unspecified surgery Altered mental status Status post colostomy, follow-up exam ([facility]-HCC) Follow-up examination, following unspecified surgery [facility]* Diagnosis History of traumatic brain injury- Primary Personal history of traumatic brain injury Dementia, unspecified dementia severity, unspecified dementia type, unspecified whether behavioral, psychotic, or mood disturbance or anxiety (HCC) Cognitive deficits Unspecified persistent mental disorders due to conditions classified elsewhere Impaired mobility and ADLs Other ill-defined conditions 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) [facility]* Diagnosis 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 Episode of confusion [facility]* Diagnosis Orthostatic hypotension- Primary Bradycardia Other specified cardiac dysrhythmias [facility]* Diagnosis Dementia with behavioral disturbance (CMS-HCC)- Primary [facility]* Diagnosis Pre-op testing- Primary Unspecified pre-operative examination [facility] instructions No data available for this section [facility] Derek InstructionsNot on filedocumented in this encounter [facility] SystemInstructions* Attachments The following attachments cannot be sent through Care Everywhere. * Caring for someone with Alzheimer disease or dementia ([place]oc[place]) documented in this encounter[facility] SystemInstructionsNot on file documented in this encounterProU[facility] SystemInstructionsNot on file documented in this encounterProC[facility] SystemInstructionsNot on file documented in [facility]St[facility] SystemProgress note No data available for this section [facility] Janice reason for visit Narrative* Auth/Cert (Routine) Specialty Diagnoses / Procedures Referred By Naseem araujo Referred To Contact Diagnoses Dementia with behavioral disturbance (CMS-HCC) At risk for long QT syndrome Altered mental status Altered Mental Status Nichol Heath MD [address] [place] [address], [address] [place] [address] Phone: tel: fax: Referral ID Status Reason Start Date Expiration Date Visits Re quested Visits Authorized [id number] 1 1 [facility] Purpose Family History No Family [...] CONSULT TO SLEEP MEDICINE - ADULT OFFICE/OUTPATIENT [facility] 60-74 MINUTES Narciso Guerra MD [address] [place] [address] Referral ID Status Reason Start Date Expiration Date Visits Requested Visits Authorized [id number] Authorized PCP Requested Referral 04/28/2022 04/28/2023 1 1 Specialty Diagnoses / Procedures Referred By Contgianni t Referred To Contact [facility] Diagnoses Alzheimer's disease (HCC) Procedures CONSULT TO SPEECH THERAPY OFFICE/OUTPATIENT [facility] 60-74 MINUTES Agustina Plascencia MD [address] [place] [address] [facility] [address] [address] Referral ID Status Reason Start Date Expiration Date Visits Requested Visits Authorized [id number] Pending Review Auto-Generat ed Referral 11/17/2022 11/17/2023 1 1 Specialty Diagnoses / Procedures Referred By Contac t Referred To Contact [facility]AG[facility] Diagnoses Cognitive changes Procedures MRI 3D POST PROCESSING 3D RENDERING W/INTERP&POSTPROC DIFF WORK STATION Narciso Guerra MD [address] [place] [address] [place] [address] Referral ID Status Reason Start Date Expiration Date V isits Requested Visits Authorized [id number] Closed Auto-Generate d Referral 04/22/2022 05/22/2023 1 1 Specialty Diagnoses / Procedures Referred By Contac t Referred To Contact MR IMAGING Diagnoses Cognitive changes Procedures MRI BRAIN WO IVCON MRI BRAIN BRAIN STEM W/O CONTRAST MATERIAL Narciso Guerra MD [address] [place] [address] [place] [address] Referral ID Status Reason Start Date Expiration Date V isits Requested Visits Authorized [id number] Closed Auto-Generate d Referral 04/22/2022 06/06/2022 1 [...] section and content) DATE CREATED AUTHOR 04/15/2021 [facility] DATE CREATED AUTHOR AUTHOR'S ORGANIZ ATION 05/09/2022 [facility] DATE CREATED AUTHOR AUTHOR'S ORGANIZ ATION 10/28/2022 [facility] DATE CREATED AUTHOR AUTHOR'S ORGANIZ ATION 06/28/2024 [facility] DATE CREATED AUTHOR AUTHOR'S ORGANIZ ATION 07/01/2024 [facility] DATE CREATED AUTHOR AUTHOR'S ORGANIZ ATION 07/04/2024 [facility] DATE CREATED AUTHOR AUTHOR'S ORGANIZ ATION 07/22/2024 [employer] [facility] DATE CREATED AUTHOR AUTHOR'S ORGANIZ ATION 08/05/2024 [facility] DATE CREATED AUTHOR AUTHOR'S ORGANIZ ATION 11/02/2024 [facility] DATE CREATED AUTHOR AUTHOR'S ORGANIZ ATION 11/08/2024 [facility] DATE CREATED AUTHOR AUTHOR'S ORGANIZ ATION [facility]30[facility]20[facility] DATE CREATED AUTHOR AUTHOR'S ORGANIZ ATION 03/30/2025 [facility] Source Comments (unrecognize d section and content) In the event this informatio n is protected by the Federal Confidentiality of Alcohol and Drug Abuse Patient Records regulations: The Federal rules restrict any use of the information to criminally investigate or prosecute any alcohol or drug abuse patient.[facility] the event this information is protected by the Federal Confidentiality of Alcohol and Drug Abuse Patient Records regulations: The Federal rules restrict any use of the information to criminally investigate or prosecute any alcohol or drug abuse patient.[facility] HospitalIn the event this information is protected by the Federal Confidentiality of Alcohol and Drug Abuse Patient Records regulations: The Federal rules restrict any use of the information to criminally investigate or prosecute any alcohol or drug abuse patient.[facility] HospitalIn the event this information is protected by the Federal Confidentiality of Alcohol and Drug Abuse Patient Records regulations: The Federal rules restrict any use of the information to criminally investigate or prosecute any alcohol or drug abuse patient.[facility] HospitalIn the event this information is protected by the Federal Confidentiality of Alcohol and Drug Abuse Patient Records regulations: The Federal rules restrict any use of the information to criminally investigate or prosecute any alcohol or drug abuse patient.[facility] HospitalIn the event this information is protected by the Federal Confidentiality of Alcohol and Drug Abuse Patient Records regulations: The Federal rules restrict any use of the information to criminally investigate or prosecute any alcohol or drug abuse patient.[facility] HospitalIn the event this information is protected by the Federal Confidentiality of Alcohol and Drug Abuse Patient Records regulations: The Federal rules restrict any use of the information to criminally investigate or prosecute any alcohol or drug abuse patient.[facility] HospitalIn the event this information is protected by the Federal Confidentiality of Alcohol and Drug Abuse Patient Records regulations: The Federal rules restrict any use of the information to criminally investigate or prosecute any alcohol or drug abuse patient.[facility] HospitalIn the event this information is protected by the Federal Confidentiality of Alcohol and Drug Abuse Patient Records regulations: The Federal rules restrict any use of the information to criminally investigate or prosecute any alcohol or drug abuse patient.[facility] HospitalIn the event this information is protected by the Federal Confidentiality of Alcohol and Drug Abuse Patient Records regulations: The Federal rules restrict any use of the information to criminally investigate or prosecute any alcohol or drug abuse patient.[facility] HospitalIn the event this information is protected by the Federal Confidentiality of Alcohol and Drug Abuse Patient Records regulations: The Federal rules restrict any use of the information to criminally investigate or prosecute any alcohol or drug abuse patient.[facility] HospitalIn the event this information is protected by the Federal Confidentiality of Alcohol and Drug Abuse Patient Records regulations: The Federal rules restrict any use of the information to criminally investigate or prosecute any alcohol or drug abuse patient.[facility] HospitalIn the event this information is protected by the Federal Confidentiality of Alcohol and Drug Abuse Patient Records regulations: The Federal rules restrict any use of the information to criminally investigate or prosecute any alcohol or drug abuse patient.[facility] HospitalIn the event this information is protected by the Federal Confidentiality of Alcohol and Drug Abuse Patient Records regulations: The Federal rules restrict any use of the information to criminally investigate or prosecute any alcohol or drug abuse patient.[facility] HospitalIn the event this information is protected by the Federal Confidentiality of Alcohol and Drug Abuse Patient Records regulations: The Federal rules restrict any use of the information to criminally investigate or prosecute any alcohol or drug abuse patient.[facility] HospitalIn the event this information is protected by the Federal Confidentiality of Alcohol and Drug Abuse Patient Records regulations: The Federal rules restrict any use of the information to criminally investigate or prosecute any alcohol or drug abuse patient.[facility] HospitalIn the event this information is protected by the Federal Confidentiality of Alcohol and Drug Abuse Patient Records regulations: The Federal rules restrict any use of the information to criminally investigate or prosecute any alcohol or drug abuse patient.[facility] HospitalIn the event this information is protected by the Federal Confidentiality of Alcohol and Drug Abuse Patient Records regulations: The Federal rules restrict any use of the information to criminally investigate or prosecute any alcohol or drug abuse patient.[facility] HospitalIn the event this information is protected by the Federal Confidentiality of Alcohol and Drug Abuse Patient Records regulations: The Federal rules restrict any use of the information to criminally investigate or prosecute any alcohol or drug abuse patient.[facility] HospitalIn the event this information is protected by the Federal Confidentiality of Alcohol and Drug Abuse Patient Records regulations: The Federal rules restrict any use of the information to criminally investigate or prosecute any alcohol or drug abuse patient.[facility] HospitalIn the event this information is protected by the Federal Confidentiality of Alcohol and Drug Abuse Patient Records regulations: The Federal rules restrict any use of the information to criminally investigate or prosecute any alcohol or drug abuse patient.[facility] HospitalIn the event this information is protected by the Federal Confidentiality of Alcohol and Drug Abuse Patient Records regulations: The Federal rules restrict any use of the information to criminally investigate or prosecute any alcohol or drug abuse patient.[facility] HospitalIn the event this information is protected by the Federal Confidentiality of Alcohol and Drug Abuse Patient Records regulations: The Federal rules restrict any use of the information to criminally investigate or prosecute any alcohol or drug abuse patient.[facility] the event this information is protected by the Federal Confidentiality of Alcohol and Drug Abuse Patient Records regulations: The Federal rules restrict any use of the information to criminally investigate or prosecute any alcohol or drug abuse patient.[facility] HospitalIn the event this information is protected by the Federal Confidentiality of Alcohol and Drug Abuse Patient Records regulations: The Federal rules restrict any use of the information to criminally investigate or prosecute any alcohol or drug abuse patient.[facility] HospitalIn the event this information is protected by the Federal Confidentiality of Alcohol and Drug Abuse Patient Records regulations: The Federal rules restrict any use of the information to criminally investigate or prosecute any alcohol or drug abuse patient.[facility] the event this information is protected by the Federal Confidentiality of Alcohol and Drug Abuse Patient Records regulations: The Federal rules restrict any use of the information to criminally investigate or prosecute any alcohol or drug abuse patient.[facility] HospitalIn the event this information is protected by the Federal Confidentiality of Alcohol and Drug Abuse Patient Records regulations: The Federal rules restrict any use of the information to criminally investigate or prosecute any alcohol or drug abuse patient.[facility] HospitalIn the event this information is protected by the Federal Confidentiality of Alcohol and Drug Abuse Patient Records regulations: The Federal rules restrict any use of the information to criminally investigate or prosecute any alcohol or drug abuse patient.[facility] HospitalIn the event this information is protected by the Federal Confidentiality of Alcohol and Drug Abuse Patient Records regulations: The Federal rules restrict any use of the information to criminally investigate or prosecute any alcohol or drug abuse patient.[facility] Reason for Visit (unrecogniz ed section and content) Reason Comments Earwax Bilateral ear Specialty Diagnoses / Procedures Referred By Naseem araujo Referred To Contact Diagnoses Bilateral hearing loss, unspecified hearing loss type Procedures HEARING TEST/AUDIOGRAM COMPRE AUDIOMETRY THRESHOLD EVAL SP RECOGNIJ Narciso Guerra MD [address] [place] [address] [facility] [address] [place] [address] Referral ID Status Reason Start Date Expiration Date V isits Requested Visits Authorized [id number] Closed Auto-Generate d Referral 04/22/2022 07/21/2022 1 1 Reason Comments New Patient Evaluation Had sleep study d one. Specialty Diagnoses / Procedures Referred By Naseem araujo Referred To Contact Diagnoses Sleep apnea, unspecified type Sleep hypopnea Procedures CONSULT TO SLEEP MEDICINE - ADULT OFFICE/OUTPATIENT [facility] 60-74 MINUTES Narciso Guerra MD [address] [place] [address] Referral ID Status Reason Start Date Expiration Date V isits Requested Visits Authorized [id number] Closed PCP Requested Referral 04/28/2022 04/28/2023 1 1 Reason Comments Memory Loss Specialty Diagnoses / Procedures Referred By Naseem araujo Referred To Contact Neurology Diagnoses Memory loss Procedures CONSULT TO NEUROLOGY OFFICE/OUTPATIENT [facility] 60-74 MINUTES Narciso Guerra MD [address] [place] [address] Referral ID Status Reason Start Date Expiration Date V isits Requested Visits Authorized [id number] Closed PCP Requested Referral 06/22/2022 06/22/2023 1 1 Reason Comments Lumbar Puncture Reason Comments Memory Loss Reason Comments Sleep Apnea Reason Comments PAP Rx Faxed DME: [facility] Reason Comments Returning Patient's Call Reason Comments Refill Request Reason Comments PAP Therapy Follow Up 12/18/22 - 01/16/23 L AST FOUND DL FROM DME Reason Comments Research [facility] (IRB [id number]) I nterest Reason Comments Research [facility] (IRB [id number]) Specialty Diagnoses / Procedures Referred By Naseem araujo Referred To Contact [facility] IMAGING Diagnoses Cognitive changes Procedures MRI BRAIN WO IVCON MRI BRAIN BRAIN STEM W/O CONTRAST MATERIAL Narciso Guerra MD [address] [place] [address] [place] [address] Referral ID Status Reason Start Date Expiration Date V isits Requested Visits Authorized [id number] Closed Auto-Generate d Referral 04/22/2022 06/06/2022 1 [...] March 15, 2024 End: March 15, 2024 Supervisor Cold Rolling Relationship Specialty Start Date End Date Jae Lopez MD PCP - General 03/27/18 Supervisor Cold Rolling Relationship Specialty Start Date End Date Jae Lopez MD PCP - General 03/27/18 Supervisor Cold Rolling Relationship Specialty Start Date End Date Jae Lopez MD PCP - General 03/27/18 Supervisor Cold Rolling Relationship Specialty Start Date End Date Jae Lopez MD PCP - General 03/27/18 Supervisor Cold Rolling Relationship Specialty Start Date End Date Jae Lopez MD PCP - General 10/8/18 Supervisor Cold Rolling Relationship Specialty Start Date End Date Hoy, Jae M, MD PCP - General 03/27/18 Supervisor Cold Rolling Relationship Specialty Start Date End Date Jae [...] RN) 0941 (Given - Provider: Neela Beaver RN)2137 (Given - Provider: Claribel Amato RN) DULoxetine (CYMBALTA) DR capsule 20 mg 20 mg, oral, Daily, First dose on Tue07/06/24 at 0900, Look-alike/sound-alike medication - verify indication for use. Swallow whole-do not crush or chew. Although the ict support technicians does not recommend opening the capsule, the [...] access) 0900 (Not Given - Provider: Ethel Martinez, MARCI - Reason: Loss of IV access)2100 (Due) [...] BE BASED ON THE PRIMARY CLINICAL RECORDS. [facility]. provides no warranty or guarantee of the accuracy or completeness of information in this document.
[2025-04-02 21:37] LABS: Hematocrit 43.2 % (42.0-54.0); Hemoglobin 14.3 g/dL (14.0-18.0); Immature Granulocytes Abs Auto 0.01 10^3/uL (0.00-0.03); Immature Granulocytes Pct Auto 0.2 % (0.0-0.5); Lymphocytes Absolute Auto 1.3 10^3/uL (1.2-3.8); Mean Corpuscular HGB Conc 33.1 g/dL (29.9-35.2); Mean Corpuscular Hemoglobin 26.7 pg (25.9-34.0); Mean Corpuscular Volume 80.6 fL (80.0-94.0); Platelet Count 179 10^3/uL (150-450); Red Blood Count 5.36 10^6/uL (4.70-6.10); White Blood Count 5.5 10^3/uL (4.0-11.0)
[2025-04-02 21:48] LABS: Anion Gap 10.9; Blood Urea Nitrogen 11.0 mg/dL (7.0-18.0); Calcium 8.5 mg/dL (8.5-10.1); Carbon Dioxide 28.8 mmol/L (21.0-32.0); Chloride 105 mmol/L (98-107); Estimated GFR (African America >60 (>=60 mL/min/1.73m^2); Estimated GFR (Non-African Ame >60 (>=60 mL/min/1.73m^2); Glucose 118 mg/dL (74-106); Potassium 3.7 mmol/L (3.5-5.1); Sodium 141 mmol/L (136-145)
[2025-04-02] MEDS: 0.9 % SODIUM CHLORIDE 1,000 ML 1000 ML IV (22:01)
--- NOTE | 2025-04-02 22:36 | ED.GENADUL1 ---
HPI HPI - General Adult General Chief complaint: Seizure Stated complaint: SEIZURE Time Seen by Provider: 04/02/25 20:37 Source: other Source information: EMS Mode of arrival: ambulance History of Present Illness HPI narrative: Patient is a 59-year-old male that presents to the emergency department via EMS with possible seizure at home and low blood pressure. EMS reports on their BP machine his first systolic pressure was in the 70s. They urged the family to bring him to the emergency department for evaluation. He did have an IV placed and about 250 cc of normal saline with improvement in his blood pressure prior to arrival. Patient's and sister are at bedside and provide history as patient baseline now does not answer questions. They say he will follow commands. Patient's states that they were watching TV and planning to go to bed when he all of a sudden made a strange side noise and appeared to look pale or byrd. She had lowered him to the ground as she thought he was about to have a seizure but he never lost consciousness or had any shaking or seizure-like activity. She did end up calling EMS and then they discovered the low blood pressure. He does take midodrine for low blood pressure but she had not given it to him this evening as his systolic BP was over 110 as directed. Patient is on Trileptal 300 mg twice daily. A month ago he did have a grand mal seizure and was seen in this emergency department but has not had any other seizures since. They report that his overall quality of life has improved since they adjusted his medications as he was mostly comatose but while now follow commands and does talk but does not answer questions. Related Data Home Medications ?Medication ?Instructions ?Recorded ?Confirmed quetiapine 50 mg tablet 50 mg PO BID 08/09/24 02/19/25 Held on 02/19/25. Instructions: changed med list midodrine 2.5 mg tablet 2.5 mg PO BID 02/06/25 03/05/25 pantoprazole 40 mg tablet,delayed 40 mg PO .acb 02/06/25 02/19/25 release Held on 02/19/25. Instructions: changed med list duloxetine 30 mg capsule,delayed 30 mg PO BID 02/07/25 03/05/25 release risperidone 0.5 mg tablet 0.5 mg PO BID 02/19/25 03/05/25 trazodone 50 mg tablet 50 mg PO QPM 02/19/25 03/05/25 Previous Rx's ?Medication ?Instructions ?Recorded donepezil 10 mg tablet 10 mg PO QHS #30 tabs 08/11/24 Held on 02/19/25. Instructions: changed med list melatonin 10 mg capsule 10 mg PO DAILY #30 caps 08/11/24 folic acid 1 mg tablet 1 mg PO QD #60 tabs 02/08/25 oxcarbazepine 150 mg tablet 150 mg PO DAILY #30 tabs 02/08/25 (Trileptal) sennosides 8.6 mg-docusate sodium 1 tab PO QD PRN Constipation #30 02/08/25 50 mg tablet (Senna Plus) tabs Allergies Allergy/AdvReac Type Severity Reaction Status Date / Time No Known Drug Allergies Allergy Verified 04/02/25 20:33 Opioid HPI Opioid Management Most Recent Opioid Data: Last ORT Total Score 0 02/06/25, 22:00 Last ORT Risk Category Low Risk 02/06/25, 22:00 Ur Phencyclidine Scrn, (NEGATIVE) Negative 08/10/24, 01:35 Review of Systems ROS Status of ROS 10 or more systems reviewed and unremarkable except as noted in history and below [facility] Medical History (Updated 04/02/25 @ 22:36 by SHUN Dasilva) POTS (postural orthostatic tachycardia syndrome) ?G90.A - Postural orthostatic tachycardia syndrome [POTS] (ICD-10) TBI (traumatic brain injury) ?S06.9XAA - Unspecified intracranial injury with loss of consciousness status unknown, initial encounter (ICD-10) Dementia ?F03.90 - Unspecified dementia, unspecified severity, without behavioral disturbance, psychotic disturbance, mood disturbance, and anxiety (ICD-10) Elevated TSH ?R79.89 - Other specified abnormal findings of blood chemistry (ICD-10) STEVO (acute kidney injury) ?N17.9 - Acute kidney failure, unspecified (ICD-10) Delirium ?R41.0 - Disorientation, unspecified (ICD-10) Altered mental status ?R41.82 - Altered mental status, unspecified (ICD-10) Hallucinations ?R44.3 - Hallucinations, unspecified (ICD-10) Acute delirium ?R41.0 - Disorientation, unspecified (ICD-10) Altered mental status ?R41.82 - Altered mental status, unspecified (ICD-10) Combative behavior ?R46.89 - Other symptoms and signs involving appearance and behavior (ICD-10) Dementia without behavioral disturbance ?F03.90 - Unspecified dementia, unspecified severity, without behavioral disturbance, psychotic disturbance, mood disturbance, and anxiety (ICD-10) Altered mental status ?R41.82 - Altered mental status, unspecified (ICD-10) GERD (gastroesophageal reflux disease) ?K21.9 - Gastro-esophageal reflux disease without esophagitis (ICD-10) Surgical History History of colostomy reversal ?Z98.890 - Other specified postprocedural states (ICD-10) H/O hernia repair ?Z98.890 - Other specified postprocedural states (ICD-10) ?Z87.19 - Personal history of other diseases of the digestive system (ICD-10) Family History Sister Family history of cancer Family history of diabetes mellitus Family history of hypertension Family history of stroke Mother Family history of diabetes mellitus Family history of hypertension Social History (Updated 02/07/25 @ 06:39 by Nuris Armijo RN) Within the past year, how often did you have a drink containing alcohol: never Within the past year, how often did you have six or more drinks on one occasion: never Score interpretation: A score less than 4 is consistent with normal alcohol consumption. Smoking status: Never smoker Non-prescribed substance use: denies use Previous occupational history: unemployed Highest level of school completed/degree received: Bachelor's degree Are you now , , , , never or living with a partner: Little interest or pleasure in doing things: not at all Feeling down, depressed, or hopeless: not at all Do you think of yourself as: straight/heterosexual Gender Identity: male Exam Narrative Exam Narrative: General: No distress, age-appropriate Skin: Warm, dry, no pallor. No rash. Head: Normocephalic, atraumatic. Neck: Supple, non-tender. Eye: Pupils are equal, round and EOMI. No scleral icterus. Ears, Nose, Mouth, and Throat: No nasal mucosal hypertrophy. Oral mucosa is moist, no posterior oropharynx erythema, uvula is mid-line Cardiovascular: Regular Rate and Rhythm without murmur, gallop or rub. Respiratory: No accessory muscle use or respiratory distress. Lungs are clear to auscultation, no wheezing, rales or rhonchi Chest Wall: no tenderness Musculoskeletal: Full ROM of all extremities, no calf or popliteal tenderness GI: Abdomen is soft, non-distended, non tender to palpation. No masses appreciated. No rebound, guarding, or rigidity noted. Neurological: Alert but does not answer questions, will repeat words. He does follow commands. No cranial nerve dysfunction observed. No truncal ataxia. Moves all extremities. Withdraws from pain, sensation appears to be intact in all extremities. Psychiatric: Cooperative and interactive. Normal mood and affect. Constitutional Vital Signs, click to edit/add: Last Vital Signs Temp 98.0 F 04/02/25 20:36 Pulse 71 04/02/25 20:36 Resp 18 04/02/25 23:38 BP 110/48 L 04/02/25 21:55 Pulse Ox 96 04/02/25 21:31 O2 Del Method Room Air 04/02/25 20:36 Course Vital Signs Vital signs: Vital Signs Temperature 98.0 F 04/02/25 20:36 Pulse Rate 71 04/02/25 20:36 Respiratory Rate 18 04/02/25 20:36 Blood Pressure 110/78 04/02/25 20:36 Pulse Oximetry 95 04/02/25 20:36 Oxygen Delivery Method Room Air 04/02/25 20:36 Temperature 98.0 F 04/02/25 20:36 Pulse Rate 71 04/02/25 20:36 Respiratory Rate 18 04/02/25 23:38 Blood Pressure 110/48 L 04/02/25 21:55 Pulse Oximetry 96 04/02/25 21:31 Oxygen Delivery Method Room Air 04/02/25 20:36 Medical Decision Making MDM Narrative Medical decision making narrative: This is a 59-year-old male with history of dementia, seizure disorder (on Trileptal 300 mg BID) and chronic hypotension (on midodrine) presented to the ED via EMS after a witnessed episode at home concerning for seizure or syncope. Per , he made a strange noise and appeared pale/byrd, prompting her to lower him to the ground. He did not lose consciousness, convulse, or exhibit postictal confusion. EMS noted an initial systolic BP in the 70s, improved with a 250 cc IV NS bolus en route. No midodrine was given this evening due to SBP >110 mmHg per usual instructions. At baseline, patient follows commands but does not answer questions appropriately (per and sister).On arrival patient is in no distress, vitals are hemodynamically stable, BP systolic 110s manually, afebrile, and 96% O2 saturations on room air. IV in place from EMS, will finish the liter of normal saline. CBC and BMP ordered. CT head considered but not ordered as it is unclear if patient had a true seizure as there was no loss of consciousness or convulsions but there was hypotension noted at the scene by EMS. Patient's states she came to the ED as recommended by EMS only because of his low blood pressure. She does not think that he had an actual seizure. CBC and BMP were within normal limits, no anemia or thrombocytopenia, no leukocytosis, electrolyte or glucose abnormality. Patient at his baseline neurological status during his ED course. No acute abnormalities noted. No seizure activity observed. No new focal neurological deficits. Transient hypotension seem to have resolved with fluids given by EMS, multiple blood pressures taken here reveals systolic BP in the 110s. I discussed labs and patient's clinical course here in the ED with the patient's and sister and they are reassuring and they are comfortable taking him back home. Patient was discharged home in stable condition with instructions to continue medications as directed and to call PCP and neurologist to update them and for follow-up. He does have a psychiatrist appointment tomorrow. Patient's family was urged to return to the emergency department for any worsening mental status, seizure activity, or recurrent hypotension. Differential Diagnosis Differential Diagnosis: Hypotension related altered mental status, seizure, electrolyte abnormality Lab Data Lab results reviewed: Yes I reviewed the patient's lab results Labs: Lab Results 04/02/25 Range/Units 21:27 WBC 5.5 (4.0-11.0) 10^3/uL RBC 5.36 (4.70-6.10) 10^6/uL Hgb 14.3 (14.0-18.0) g/dL Hct 43.2 (42.0-54.0) % MCV 80.6 (80.0-94.0) fL MCH 26.7 (25.9-34.0) pg MCHC 33.1 (29.9-35.2) g/dL RDW 12.4 (11.0-15.0) % Plt Count 179 (150-450) 10^3/uL MPV 9.7 (9.5-13.5) fL Neut % (Auto) 67.2 (43.0-75.0) % Lymph % (Auto) 24.4 (20.5-60.0) % Phillips % (Auto) 7.3 (1.7-12.0) % Eos % (Auto) 0.4 L (0.9-7.0) % Baso % (Auto) 0.5 (0.2-2.0) % Neut # (Auto) 3.7 (1.4-6.5) 10^3/uL Lymph # (Auto) 1.3 (1.2-3.8) 10^3/uL Phillips # (Auto) 0.4 (0.3-0.8) 10^3/uL Eos # (Auto) 0.0 (0.0-0.7) 10^3/uL Baso # (Auto) 0.0 (0.0-0.1) 10^3/uL Abs Immat Gran (auto) 0.01 (0.00-0.03) 10^3/uL Imm/Tot Granulo (auto) 0.2 (0.0-0.5) % Sodium 141 (136-145) mmol/L Potassium 3.7 (3.5-5.1) mmol/L Chloride 105 (98-107) mmol/L Carbon Dioxide 28.8 (21.0-32.0) mmol/L Anion Gap 10.9 BUN 11.0 (7.0-18.0) mg/dL Creatinine 0.83 (0.70-1.30) mg/dL Est GFR ( Amer) >60 (>=60 mL/min/1.73m^2) Est GFR (Non-Af Amer) >60 (>=60 mL/min/1.73m^2) BUN/Creatinine Ratio 13.3 Glucose 118 H (74-106) mg/dL Calcium 8.5 (8.5-10.1) mg/dL Discharge Plan Discharge Chief Complaint: Seizure Clinical Impression: Breakthrough seizure Patient Disposition: Home, Self-Care Time of Disposition Decision: 22:33 Condition: Good Mode of Transportation: Private Vehicle Prescriptions / Home Meds: No Action pantoprazole 40 mg tablet,delayed release (DR/EC) 40 mg PO .acb midodrine 2.5 mg tablet 2.5 mg PO BID duloxetine 30 mg Capsule,Delayed Release(Dr/Ec) 30 mg PO BID sennosides-docusate sodium [Senna Plus] 8.6-50 mg Tablet 1 tab PO QD PRN (Reason: Constipation) Qty: 30 1RF folic acid 1 mg Tablet 1 mg PO QD Qty: 60 1RF oxcarbazepine [Trileptal] 150 mg tablet 150 mg PO DAILY Qty: 30 2RF quetiapine 50 mg tablet 50 mg PO BID Rx Instructions: 50 mg in morning and 50 mg after lunch donepezil 10 mg Tablet 10 mg PO QHS Qty: 30 11RF melatonin 10 mg capsule 10 mg PO DAILY Qty: 30 11RF risperidone 0.5 mg tablet 0.5 mg PO BID trazodone 50 mg tablet 50 mg PO QPM Print Language: German Instructions: Recurrent Seizures in Adults (ED) Additional Instructions: Follow up with neurology. Return to ED if symptoms change or worsen. Referrals: neurology [Other] - 1 week Jae Cruz MD [Primary Care Provider, Family Practice] - 1 week Discharge Date/Time: 04/02/25 23:40
== END 2025-04-02 23:40 | disposition home or self-care (01) ==
PROVIDERS: Physician Assistant; Emergency Provider Internal Medicine; PCP Family Medicine
DX: R56.9 Unspecified convulsions (principal); Z79.899 Other long term (current) drug therapy; I95.9 Hypotension, unspecified
CPT/HCPCS: 36415; 80048; 85025; 96360; 99284